=== PATIENT | female | born 1965 | race Caucasian/White ===

== ENCOUNTER 2017-04-08 07:54 | Day surgery (SDC) | payer MEDICARE, MEDICAID, SELFPAY ==
--- NOTE | 2017-04-08 | IMM_PTH ---
PATIENT: RAMSES BRADSHAW LOC: EN U#:[id number] AGE/SX: 51/F ROOM: RE04/08/[address]: Dr. Clarissa Jose MD : 1965 BED: DIS: 04/08/2017 SPEC #: [id number] RECD: 04/09/17 10:44 STATUS: MARYANN REQ #: [id number] LILLIE: 04/08/17 00:[address]: Clarissa Jose DEPT: IMMUNOHISTOCHEMISTRY RECD BY: Lizeth Benitez ENTERED: 04/09/17 10:47 SP TYPE: IMMUNO OTHR DR: Dr. Bobby Leon MD Tissues: B - Gastric fundus Procedures: Synapto (add) CEA (add) CHROMO (add) CK8 (add) Surgery Specimen Level IV NSE (add) CD56 (initial) PHYSICIAN & INSTITUTION [place] [id number] SPECIMEN INFORMATION: Tissue Source: B ? Fundic biopsy Clinical Info: Abdomen pain, gastric reflux Specimen Number: [id number] CPT code: 59076, 83665 x5 METHODOLOGY: Deparaffinized sections of prefer/formalin-fixed tissue or PAP/DQ stained slides are incubated with monoclonal/polyclonal antibodies/oligonucleotide probes. Localization is made via biotin free immunoperoxidase method. Appropriate controls are performed and reacted as expected. Results on target cell population are indicated in the following table: RESULTS: ANTIBODY / CLONE RESULT Block B CD56 (123C3.D5) positive NSE Neuron Specific Enolase positive, dim Chromo (LK2H10) positive Synapto (polyclonal) positive CEA (11-7/TF-3HB-1) negative CK8 ([id number]) positive These tests were developed and their performance characteristics determined by [facility]. They may not have been cleared or approved by the U.S. Food and Drug Administration. The FDA has determined that such clearance or approval is not necessary. INTERPRETATION: B. Fundic biopsy: Consistent with neuroendocrine tumor. Case has been reviewed in consultation with Dr. Wiley who concurs with the above diagnosis. IDC:YOUSIF AM:marty 04/10/17
--- NOTE | 2017-04-08 | GASB_PTH ---
PATIENT: RAMSES BRADSHAW LOC: [facility] U#:[id number] AGE/SX: 51/F ROOM: RE04/08/[address]: Dr. Clarissa Jose MD : 1965 BED: DIS: 04/08/2017 SPEC #: [id number] RECD: 04/08/17 12:38 STATUS: MARYANN TAMIKA #: [id number] LILLIE: 04/08/17 00:[address]: Clarissa Jose DEPT: SURGICAL PATHOLOGY RECD BY: Dev Delaney ENTERED: 04/08/17 12:39 SP TYPE: Gastric Bx OTHR DR: Dr. Bobby Leon MD Tissues: A - Gastric mucous membrane B - Gastric fundus C - Gastric mucous membrane Procedures: Special Stain Group II Surgery Specimen Level IV Alcian Blue/PAS (control) HEADER OPERATION: EGD with biopsy PRE-OP DIAGNOSIS: abdomen pain, gastric reflux TISSUE SUBMITTED: A ? Antrum biopsy, B ? Biopsy fundic abnormal fold, C ? Biopsy GE junction MICROSCOPIC DIAGNOSIS A. Gastric antrum, biopsy: Minimal chronic inflammation. B. Gastric fundus, biopsy: Neuroendocrine tumor. See Comment. C. Gastroesophageal junction, biopsy: Mild chronic inflammation. AM:marty 04/09/17 COMMENT B. A neroendocrine tumor measuring 1.5 x 1.0mm is present in the submucosa of the biopsy of the abnormal fundic fold. IHC studies ([id number]) support the above diagnosis. Clinical correlation is necessary. C. There is no evidence of intestinal metaplasia. Alcian blue/PAS stain with matched control supports the above diagnosis. Case has been reviewed in consultation with Dr. Wiley who concurs with the above diagnosis. IDC:SJ MICROSCOPIC DESCRIPTION Slides are reviewed. GROSS DESCRIPTION A - Received in fixative is one container labeled with the patient's name and designated antrum biopsy. The specimen consists of one irregular fragment of light aburto soft tissue that measures 0.3 x 0.2 x 0.1 cm. The specimen is totally submitted in one cassette. B - Received in fixative is one container labeled with the patient's name and designated fundic antral fold. The specimen consists of one irregular fragment of light aburto soft tissue that measures 0.5 x 0.2 x 0.1 cm. The specimen is totally submitted in one cassette. C - Received in fixative is one container labeled with the patient's name and designated GE junction. The specimen consists of one irregular fragment of light aburto soft tissue that measures 0.6 x 0.2 x 0.1 cm. The specimen is totally submitted in one cassette. / AM:marty 04/08/17 TC:0 CPT: 88609 x3, 66727
[2017-04-08 08:39] VITALS: BP 142/88; PULSE 57; RESP 16; O2SAT 100; BMI 31.6
[2017-04-08 09:08] VITALS: BP 117/88; BP 142/88; PULSE 59; RESP 18; TEMP 35.9; O2SAT 99
[2017-04-08 09:10] VITALS: BP 121/72; BP 142/88; PULSE 60; RESP 16; O2SAT 99
[2017-04-08 09:15] VITALS: BP 125/70; BP 142/88; PULSE 67; RESP 16; O2SAT 100
[2017-04-08 09:23] VITALS: BP 126/67; BP 142/88; PULSE 60; RESP 16; TEMP 36.4; O2SAT 100
[2017-04-08 09:47] VITALS: BP 142/88
--- NOTE | 2017-04-08 10:20 | OP.PCM_ITS ---
Report of Operation Date of Procedure: 04/08/17 Pre-Operative Diagnosis: GERD, left upper quadrant/epigastric pain Post-Operative Diagnosis: Same, abnormal gastric fold/ulcer Surgery/Procedure Performed:: EGD with cold forceps biopsy Type of Anesthesia:: MAC Anesthesiologist: Luis Manuel Sawyer Specimen's removed: 1. Antrum, 2. Abnormal gastric fold in the fundus/ proximal body, 3. GE junction Estimated Blood Loss (mL): Minimal Description of Procedure: Procedure: EGD with biopsy After obtaining informed consent, the endoscope was passed under direct visualization. Throughout the procedure, patient's blood pressure, pulse, oxygen saturations were monitored continuously by anesthesia. The endoscope was introduced through the mouth and advanced to the 2nd part of the duodenum. The upper GI endoscopy was accomplished without difficulty. Patient tolerated procedure well. Findings: Medium-sized ulcer/abnormal gastric folds were noted in the fundus/proximal body. Biopsy was taken, the tissue was friable. Mild erythematous mucosa at antrum and GE junction noted to be at 37 cm. No hiatal hernia Biopsies were taken with cold biopsy for histology. Estimated blood loss was minimal. The duodenum was normal. Impression: 1. Abnormal gastric fold/ulcer in the fundus/proximal body. Biopsied 2. Erythematous mucosa in the antrum and GE junction. Biopsied. 3. Normal examined duodenum Recommendations: Await biopsy Stop omeprazole 20 mg p.o. daily start Protonix 40 mg p.o. daily Start Carafate 1 g p.o. 4 times daily an hour before meals and at bedtime for a month.
== END 2017-04-08 09:48 | disposition home or self-care (01) ==
LOC: EN 07:54 → AC 07:57
PROVIDERS: Family Provider Family Medicine; PCP Family Medicine; Visit Provider Surgery
PROC: 0DJ08ZZ Inspection of Upper Intestinal Tract, Via Natural or Artificial Opening Endoscopic (ICD-10-PCS; CPT 43235; principal; 2017-04-08 08:55)
DX: K29.50 Unspecified chronic gastritis without bleeding (principal); K21.0 Gastro-esophageal reflux disease with esophagitis; D64.9 Anemia, unspecified; I10 Essential (primary) hypertension; E78.00 Pure hypercholesterolemia, unspecified; M54.5 Low back pain; G89.29 Other chronic pain; F32.9 Major depressive disorder, single episode, unspecified; F41.9 Anxiety disorder, unspecified; E66.9 Obesity, unspecified; Z72.0 Tobacco use; Z79.899 Other long term (current) drug therapy; Z87.891 Personal history of nicotine dependence; Z90.710 Acquired absence of both cervix and uterus
CPT/HCPCS: 43239; 88305; 88313; 88341; 88342; J7120

== ENCOUNTER → 2017-04-12 12:05 | Outpatient (CLI) | payer MEDICARE, MEDICAID, SELFPAY ==
[2017-04-12 14:16] LABS: Absolute Neutrophil Count 7.5 X10^3/uL (2.0-7.7); Basophil# 0.05 X10^3/uL; Basophil% 0.4 % (0-1); Eosinophil# 0.27 X10^3/uL; Eosinophils% 2.2 % (0-5); Hematocrit 45.7 % (37-47); Hemoglobin 15.4 g/dl (12.0-15.0); Lymphocyte % 28.8 % (19-41); Mean Corp Hgb Conc 33.7 g/gl (32-36); Mean Corpuscular Hgb 30.5 pg (27.0-32.0); Mean Corpuscular Volume 90.5 fL (81-99); Mean Platelet Vol. 10.7 fl (6.2-12.0); Monocyte# 0.83 X10^3/uL; Monocyte% 6.8 % (0-10); Neutrophil # 7.47 X10^3/uL (2.7-7.7); Neutrophil % 61.4 % (47-70); Platelet Count 256 K/mm3 (150-450); RBC Distribution Width CV 13.2 % (11.6-14.6); RBC Distribution Width SD 43.4 fl (35.1-43.9); Red Blood Count 5.05 M/mm3 (4.2-5.4); White Blood Count 12.2 K/mm3 (4.4-11.0)
[2017-04-12 14:21] LABS: AST(SGOT) 20 U/L (15-37); Alanine Aminotransfer ALT/SGPT 31 U/L (13-56); Albumin, Serum 3.9 g/dL (3.2-5.0); Alkaline Phosphatase 103 U/L (45-117); Anion Gap 9 (5-15); BUN 12 mg/dL (7-18); BUN/Creat Ratio 13.7 RATIO (10-20); Calcium,Total 9.7 mg/dL (8.5-10.1); Chloride 108 mmol/L (98-107); Creatinine, Serum 0.88 mg/dL (0.55-1.02); EST Glomerular Filtration Rate 72 mL/min (>60); Est Glom Filt Rate - Afr Amer 87 mL/min (>60); Glucose 95 mg/dL (74-106); Potassium 3.5 mmol/L (3.5-5.1); Protein, Total 7.9 g/dL (6.4-8.2); Sodium Level 143 mmol/L (136-145)
[2017-04-12 14:22] LABS: POSITIVE COUNT NO; POSITIVE DIFFERENTIAL NO; POSITIVE MORPHOLOGY NO
[2017-04-15 07:52] LABS: Gastrin, Serum 266 pg/mL (0-115)
== END ==
PROVIDERS: Family Provider Family Medicine; PCP Family Medicine; Visit Provider Surgery
DX: D3A.8 Other benign neuroendocrine tumors (principal)
CPT/HCPCS: 36415; 80053; 82941; 85025

== ENCOUNTER 2017-05-20 12:45 | Day surgery (SDC) | payer MEDICARE, MEDICAID, SELFPAY ==
[2017-05-20] VITALS (7 sets, daily range): BP systolic 103–123; BP diastolic 56–76; PULSE 57–75; RESP 14–16; TEMP 36.6–36.7; O2SAT 94–97; BMI 31.3
--- NOTE | 2017-05-20 | COLBX_PTH ---
PATIENT: RAMSES BRADSHAW LOC: EN U#:[id number] AGE/SX: 51/F ROOM: RE05/20/[address]: Dr. Clarissa Jose MD : 1965 BED: DIS: 05/20/2017 SPEC #: [id number] RECD: 05/20/17 15:55 STATUS: MARYANN TAMIKA #: [id number] LILLIE: 05/20/17 00:[address]: Clarissa Jose DEPT: SURGICAL PATHOLOGY RECD BY: Wild Gaines ENTERED: 05/21/17 12:15 SP TYPE: COLON BX OTHR DR: Dr. Bobby Leon MD Tissues: POLYP Procedures: Surgery Specimen Level IV HEADER OPERATION: Colonoscopy PRE-OP DIAGNOSIS: Screening TISSUE SUBMITTED: Distal transverse polyp biopsy MICROSCOPIC DIAGNOSIS Distal transverse colon polyp, biopsy: Hyperplastic polyp. SJ:marty 05/22/17 MICROSCOPIC DESCRIPTION Slides are reviewed. GROSS DESCRIPTION Received in fixative is one container labeled with the patient's name and designated distal transverse colon polyp. The specimen consists of two irregular fragments of light aburto soft tissue that in aggregate measure 0.3 x 0.3 x 0.1 cm. The specimen is totally submitted in one cassette. / AM:marty 05/21/17 TC:1 CPT: 01378
--- NOTE | 2017-05-20 15:15 | PCM.OPRPT ---
Report of Operation Date of Procedure: 05/20/17 Pre-Operative Diagnosis: Bright red blood per rectum, gastric neuroendocrine tumor Post-Operative Diagnosis: Small sessile distal transverse colon polyp Surgery/Procedure Performed:: Colonoscopy with biopsy Type of Anesthesia:: MAC Anesthesiologist: Lisanrdo Morales Specimen's removed: 1. Distal transverse colon polyp Estimated Blood Loss (mL): Minimal Description of Procedure: Procedure: Colonoscopy After reviewing the risks benefits, the patient was deemed in satisfactory condition to undergo procedure. After obtaining informed consent, the scope was passed under direct visualization. Throughout the procedure, the patient's blood pressure pulse and position saturations were monitored continuously anesthesia. The colonoscope was introduced through the anus and advanced to the cecum, identified by the IC valve and transillumination. The colonoscopy was performed without difficulty. The patient tolerated procedure well. Quality of bowel prep was good. Findings: The perianal and digital rectal exam were normal. A small sessile polyp in the distal transverse colon was removed with cold forceps biopsies. The colon (entire examined portion) appeared normal. Retroflexed view of the distal rectum and anal verge was normal and showed no anal or rectal abnormalities Impression: 1. Small sessile distal transverse colon polyp. Biopsied 2. The distal rectal and anal verge were normal on retroflexed view. Recommendations: Await biopsy Repeat colonoscopy in 3-5 years for screening purposes depending on biopsy - Complications none
== END 2017-05-20 15:49 | disposition home or self-care (01) ==
LOC: EN 12:46 → AC 12:48
PROVIDERS: Family Provider Family Medicine; PCP Family Medicine; Visit Provider Surgery
PROC: 0DJD8ZZ Inspection of Lower Intestinal Tract, Via Natural or Artificial Opening Endoscopic (ICD-10-PCS; CPT 45378; principal; 2017-05-20 13:45)
DX: K63.5 Polyp of colon (principal); D3A.8 Other benign neuroendocrine tumors; R63.4 Abnormal weight loss; L98.9 Disorder of the skin and subcutaneous tissue, unspecified; K21.9 Gastro-esophageal reflux disease without esophagitis; E78.4 Other hyperlipidemia; I10 Essential (primary) hypertension; D64.9 Anemia, unspecified; G47.30 Sleep apnea, unspecified; G25.81 Restless legs syndrome; R07.89 Other chest pain; M54.5 Low back pain; G89.29 Other chronic pain; E66.9 Obesity, unspecified; Z68.31 Body mass index [BMI] 31.0-31.9, adult; F41.9 Anxiety disorder, unspecified; Z79.899 Other long term (current) drug therapy; Z95.0 Presence of cardiac pacemaker; Z87.891 Personal history of nicotine dependence; Z90.710 Acquired absence of both cervix and uterus
CPT/HCPCS: 45380; 88305; J7120

== ENCOUNTER → 2017-05-22 17:56 | Outpatient (CLI) | payer MEDICARE, MEDICAID, SELFPAY ==
--- NOTE | 2017-05-22 | IMM_PTH ---
PATIENT: RAMSES BRADSHAW LOC: [facility] U#:[id number] AGE/SX: 59/F ROOM: RE05/22/[address]: Dr. Clarissa Jose MD : 1965 BED: DIS: SPEC #: [id number] RECD: 05/24/17 14:49 STATUS: MARYANN REQ #: [id number] LILLIE: 05/22/17 00:[address]: Clarissa Jose DEPT: IMMUNOHISTOCHEMISTRY RECD BY: Lizeth Benitez ENTERED: 05/24/17 14:51 SP TYPE: IMMUNO OTHR DR: Dr. Bobby Leon MD Tissues: Skin of breast, NOS Procedures: Synapto (add) CD31 (add) CD56 (add) CHROMO (add) Vimentin (add) Factor VIII (initial) NEUROFIL (add) NSE (add) S-100 (add) PHYSICIAN & INSTITUTION [place] [id number] SPECIMEN INFORMATION: Tissue Source: Right medial breast, skin lesion Clinical Info: History gastric neuroendocrine tumor, ? [place] cell Specimen Number: [id number] #3 CPT code: 60552, 42177 x8 METHODOLOGY: Deparaffinized sections of prefer/formalin-fixed tissue or PAP/DQ stained slides are incubated with monoclonal/polyclonal antibodies/oligonucleotide probes. Localization is made via biotin free immunoperoxidase method. Appropriate controls are performed and reacted as expected. Results on target cell population are indicated in the following table: RESULTS: ANTIBODY / CLONE RESULT Block #3 Factor VIII (R Ag) positive CD31 (JANE/70A) positive Vimentin (V9) negative S-100 (4C4.9) negative Neurofil (2F11) negative CD56 (123C3.D5) negative NSE Neuron Specific Enolase negative Chromo (LK2H10) negative Synapto (polyclonal) negative These tests were developed and their performance characteristics determined by [facility]. They may not have been cleared or approved by the U.S. Food and Drug Administration. The FDA has determined that such clearance or approval is not necessary. INTERPRETATION: Right medial breast, skin lesion: Consistent with capillary hemangioma. AM:marty 05/27/17
--- NOTE | 2017-05-22 13:00 | LES_PTH ---
PATIENT: RAMSES BRADSHAW LOC: [facility] U#:[id number] AGE/SX: 59/F ROOM: RE05/22/[address]: Dr. Clarissa Jose MD : 1965 BED: DIS: SPEC #: [id number] RECD: 05/22/17 17:25 STATUS: MARYANN LUNDBERG #: [id number] LILLIE: 05/22/17 13:[address]: Clarissa Jose DEPT: SURGICAL PATHOLOGY RECD BY: Gardenia Yap ENTERED: 05/23/17 10:52 SP TYPE: Lesion OTHR DR: Dr. Bobby Leon MD Tissues: Skin of breast, NOS Procedures: Surgery Specimen Level IV HEADER OPERATION: Excision of right chest/breast lesion PRE-OP DIAGNOSIS: History gastric neuroendocrine tumor, ? 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 AM:marty 05/24/17 COMMENT This case was discussed with Dr. Jose 05/24/17 at 11:15 a.m. and 05/27/17 at 11:50pm by Dr. Gibbons Immunohistochemistry ([id number]) supports the above diagnosis. Case has been reviewed in consultation with Dr. Wiley who concurs with the above diagnosis. IDC:SJ MICROSCOPIC DESCRIPTION Slides are reviewed. GROSS DESCRIPTION Received in fixative is one container labeled with the patient's name and designated right medial breast skin lesion. The specimen consists of a piece of aburto-white skin ellipse measuring 3.5 x 2 cm and up to 0.3 cm in thickness. The specimen is oriented by a suture as follows as per Dr. Jose: long ? lateral, short ? superior. The specimen is inked as follows: superior margin ? blue, inferior margin ? green, lateral tip ? black and medial tip ? yellow. The skin surface shows a round, raised lesion measuring 0.5 cm in diameter. The specimen is inked, serially sectioned and submitted entirely in four cassettes as follows: cassette 1 contains the medial and lateral tip, 2-4 ? rest of the specimen (cassette 3 contains the lesion. / YOUSIF:marty 05/23/17 TC:1 CPT: 40214
== END ==
PROVIDERS: Family Provider Family Medicine; PCP Family Medicine; Visit Provider Surgery
DX: Z87.19 Personal history of other diseases of the digestive system (principal)
CPT/HCPCS: 88305; 88341; 88342

== ENCOUNTER 2017-08-22 16:00 | Emergency (ER) | payer MEDICARE, MEDICAID, SELFPAY ==
[2017-08-22 16:02] VITALS: BP 127/53; PULSE 67; RESP 17; TEMP 36.8; O2SAT 95; BMI 28.8
--- NOTE | 2017-08-22 16:31 | RAD_ITS ---
STUDY: X-RAY - PELVIS AND RIGHT HIP REASON FOR EXAM: Female, 52 years old. Trauma TECHNIQUE: Radiological exam, hip, unilateral, with pelvis when performed; 2 or 3 views. COMPARISON: None. FINDINGS: There is a non-specific bowel gas pattern. Normal visualized soft tissue structures. Normal bilateral iliac wings, sacroiliac joints and visualized sacrum. Normal bilateral superior and inferior pubic rami. Normal pubic symphysis. Normal bilateral ischial tuberosities. Normal visualized femoral head. Normal acetabulum. Normal hip joint. RAD/Hip 2-3 Views with Pelvis IMPRESSION: Normal x-ray examination of the pelvis and hip. Electronically Signed: Mainor Trujillo MD at 18:17 EDT , Service support ,
--- NOTE | 2017-08-22 16:31 | CT_ITS ---
STUDY: CT ABDOMEN AND PELVIS WITH CONTRAST REASON FOR EXAM: Female, 52 years old. Trauma RADIATION DOSAGE (If Supplied By Facility): CTDIvol = ( 16.51 ) mGy, DLP = ( 1073.71 ) mGycm TECHNIQUE: Transaxial images were obtained from the dome of the diaphragm to the symphysis pubis without oral contrast. 100 ml of Isovue 300 contrast was administered. Sagittal and coronal images were reconstructed. Individualized dose optimization techniques were used for this CT. COMPARISON: July 04, 2010. Report only FINDINGS: There is minor atelectasis within the dependent portion of the lungs. The visualized portions of the heart are within normal limits. Nonspecific fatty infiltration of liver without mass or bile duct dilatation status post cholecystectomy.. Normal spleen. Normal pancreas. Normal bilateral adrenal glands. Normal right kidney. Normal left kidney. There are postsurgical changes of the stomach. Normal small intestine. Diverticular disease of the distal descending and sigmoid colon without evidence for acute diverticulitis. No evidence for acute appendicitis Minor atherosclerotic changes of the aorta without evidence for aneurysm Normal inferior vena cava. Normal retroperitoneum. Nonspecific diffuse distention of the bladder. Uterus not visualized consistent with hysterectomy Normal abdominal wall. Status post bilateral laminectomy at L4-5 and L5-S1 posterior fusion No acute fractures identified CT/Abdomen/Pelvis W IV Cont ONLY IMPRESSION: Postsurgical changes status post cholecystectomy and hysterectomy.. Diverticular disease of the colon without evidence for acute diverticulitis. No acute abnormalities Electronically Signed: Mainor Trujillo MD at 17:58 EDT , Service support ,
--- NOTE | 2017-08-22 16:31 | RAD_ITS ---
STUDY: X-RAY - UNILATERAL RIBS ( RIGHT ) WITH CHEST REASON FOR EXAM: Female, 52 years old. Trauma TECHNIQUE - RIBS: 4 view(s) of the ribs. TECHNIQUE - CHEST: PA COMPARISON: None. FINDINGS - RIBS: Normal visualized ribs without a demonstrated fracture. FINDINGS - CHEST: Diminished inspiratory effort is seen with minor basilar atelectasis.. There is no demonstrated pleural abnormality. Pacer noted on the left with electrodes in satisfactory position. Normal size heart. Normal mediastinum and archana. Normal visualized pulmonary arteries. Normal visualized aortic arch and descending thoracic aorta. Normal visualized thoracic spine. Normal visualized ribs, clavicles, and shoulders. There is no demonstrated abnormality of the visualized soft tissue structures of the upper abdomen. RAD/Ribs Uni Min 3V w/PA Chest IMPRESSION: RIBS: Normal x-ray examination of the ribs. CHEST: Decreased inspiratory effort. No acute disease. Electronically Signed: Mainor Trujillo MD at 18:19 EDT , Service support ,
--- NOTE | 2017-08-22 16:33 | ED.VISSUMM ---
- ER Visit Summary Date of Service: 08/22/17 Chief Complaint: Fall History of Present Illness: The patient is a 52 F presenting after fall. Patient states on August 13 she was walking a dog and had a mechanical fall falling onto her right side. She was seen by her primary care physician following that. She presents today due to persistent pain. She did not hit her head or lose consciousness. She is not on anticoagulants. She has pain in the right hip, right abdomen, and right lower chest. She is able to ambulate. Physical Examination: Vitals are stable. Patient is afebrile. Alert no acute distress. HEENT exam is unremarkable. Neck is supple. Lungs are clear and equal bilaterally. Right lower chest wall tenderness, no crepitus Heart is regular rate and rhythm. Abdomen is soft right upper quadrant tenderness, no rebound or guarding Extremities lateral right hip tenderness with painful range of motion. Skin is warm and dry. No focal neurologic deficit. Remainder of exam is unremarkable. Emergency Department Course and Treatment: Patient given morphine, Zofran. X-ray of the right hip and right rib series shows no acute process. CT abdomen pelvis with IV only contrast shows no acute process. While in the emergency department patient began to complain of chest pain. EKG is sinus bradycardia rate of 58. This started after she had morphine. She was given Dilaudid. She was given aspirin. CBC chemistries unremarkable. Troponin is negative. Due to the onset of her pain, recommended repeat troponin. I had a long discussion with the patient regarding the importance of this. She stated she understood and was willing to stay for repeat blood test. She later mentioned that it is not atypical for her to have chest pain. She eloped from the emergency department prior to completion of her evaluation. Disposition: Elopement Impression: Right hip pain, chest wall pain status post mechanical fall This note was generated with [employer] dictation software. It may contain incorrect words, spelling, and punctuation that were not noted in review of the chart prior to signing ED Disposition - Plan for ED Patient: Disposition: Against Medical Advice Chief Complaint: Fall Referrals: Michael Leon MD [Primary Care Provider] -
[2017-08-22] MEDS: Morphine 4 MG/ML Syringe IV (16:52)
[2017-08-22] MEDS: Ondansetron 4 MG/2 ML Vial IV (16:52)
--- NOTE | 2017-08-22 17:49 | EKG12_ITS ---
Test Reason : FALL Blood Pressure : / mmHG Vent. Rate : 058 BPM Atrial Rate : 058 BPM P-R Int : 172 ms QRS Dur : 088 ms QT Int : 440 ms P-R-T Axes : 021 034 038 degrees QTc Int : 431 ms Sinus bradycardia Otherwise normal ECG Confirmed by AIDEN GAUTAM, LEELEE ([id number]), offline editor KIM KIM ([id number]) on 08/28/2017 3:14:14 PM Referred By: KRISS Confirmed By:LEELEE WOLFE MD
[2017-08-22 18:00] VITALS: BP 140/79; PULSE 58; RESP 16; O2SAT 96
[2017-08-22] MEDS: HYDROmorphone 1 MG/ML Syringe 0.5 MG IV (18:38)
[2017-08-22 19:52] LABS: Absolute Lymphocyte Count 3.02 X10^3/ul (0.83-4.51); Absolute Neutrophil Count 7.4 X10^3/uL (2.0-7.7); Basophil# 0.02 X10^3/uL; Basophil% 0.2 % (0-1); Eosinophil# 0.22 X10^3/uL; Hematocrit 46.2 % (37-47); Hemoglobin 15.5 g/dl (12.0-15.0); Lymphocyte # 3.02 X10^3/ul (4.0); Lymphocyte % 26.9 % (19-41); Mean Corp Hgb Conc 33.5 g/gl (32-36); Mean Corpuscular Hgb 30.1 pg (27.0-32.0); Mean Corpuscular Volume 89.7 fL (81-99); Mean Platelet Vol. 10.1 fl (6.2-12.0); Monocyte# 0.58 X10^3/uL; Monocyte% 5.2 % (0-10); Neutrophil # 7.37 X10^3/uL (2.7-7.7); Neutrophil % 65.6 % (47-70); POSITIVE COUNT NO; POSITIVE DIFFERENTIAL NO; POSITIVE MORPHOLOGY NO; Platelet Count 260 K/mm3 (150-450); RBC Distribution Width CV 14.3 % (11.6-14.6); RBC Distribution Width SD 46.7 fl (35.1-43.9); Red Blood Count 5.15 M/mm3 (4.2-5.4); White Blood Count 11.2 K/mm3 (4.4-11.0)
[2017-08-22 20:08] LABS: Anion Gap 8 (5-15); BUN 17 mg/dL (7-18); BUN/Creat Ratio 19.8 RATIO (10-20); Calcium,Total 9.3 mg/dL (8.5-10.1); Chloride 110 mmol/L (98-107); Creatinine, Serum 0.86 mg/dL (0.55-1.02); EST Glomerular Filtration Rate 74 mL/min (>60); Est Glom Filt Rate - Afr Amer 89 mL/min (>60); Estimated Creatinine Clearance 60.52 ml/min; Glucose 72 mg/dL (74-106); Potassium 3.7 mmol/L (3.5-5.1); Sodium Level 146 mmol/L (136-145)
[2017-08-22] MEDS: Aspirin 81 MG TAB.CHEW 324 MG PO (20:25)
[2017-08-22 20:45] VITALS: BP 111/70; PULSE 64; RESP 97
[2017-08-22 22:27] VITALS: BP 107/52; PULSE 55; RESP 16; O2SAT 97
--- NOTE | 2017-08-22 22:42 | ED.RN ---
PT REMOVED HER OWN IV. STATED SHE WAS TIRED OF WAITING. WOULD NOT ALLOW SECOND TROP TO BE DRAWN. WALKED OUT OF ED. EMD AWARE.
== END 2017-08-22 22:44 | disposition left against medical advice (07) ==
PROVIDERS: Emergency Provider Emergency Medicine; Family Provider Family Medicine; PCP Family Medicine
DX: M25.551 Pain in right hip (principal); R07.89 Other chest pain; W19.XXXA Unspecified fall, initial encounter; Y93.K1 Activity, walking an animal; Y92.9 Unspecified place or not applicable; Y99.9 Unspecified external cause status; I10 Essential (primary) hypertension; R00.1 Bradycardia, unspecified; Z79.899 Other long term (current) drug therapy
CPT/HCPCS: 71101; 73502; 74177; 80048; 84484; 85025; 93005; 96374; 96375; 99283; Q9967; A4216; J2405

== ENCOUNTER 2017-08-26 23:48 | Emergency (ER) | payer MEDICARE, MEDICAID, SELFPAY ==
[2017-08-26 23:50] VITALS: BP 120/73; PULSE 60; RESP 16; TEMP 36.6; O2SAT 97; BMI 31.9
[2017-08-27] MEDS: 0.9% Normal Saline 1,000 ML 1000 ML IV (01:46)
[2017-08-27] MEDS: Morphine 4 MG/ML Syringe IV (01:46)
[2017-08-27 01:58] LABS: Absolute Lymphocyte Count 3.65 X10^3/ul (0.83-4.51); Absolute Neutrophil Count 6.6 X10^3/uL (2.0-7.7); Basophil# 0.02 X10^3/uL; Basophil% 0.2 % (0-1); Eosinophil# 0.36 X10^3/uL; Eosinophils% 3.2 % (0-5); Hematocrit 44.9 % (37-47); Hemoglobin 15.4 g/dl (12.0-15.0); Lymphocyte # 3.65 X10^3/ul (4.0); Lymphocyte % 32.1 % (19-41); Mean Corp Hgb Conc 34.3 g/gl (32-36); Mean Corpuscular Hgb 30.2 pg (27.0-32.0); Mean Platelet Vol. 9.1 fl (6.2-12.0); Monocyte# 0.67 X10^3/uL; Monocyte% 5.9 % (0-10); Neutrophil # 6.64 X10^3/uL (2.7-7.7); Neutrophil % 58.3 % (47-70); POSITIVE COUNT NO; POSITIVE DIFFERENTIAL NO; POSITIVE MORPHOLOGY NO; Platelet Count 251 K/mm3 (150-450); RBC Distribution Width CV 14.1 % (11.6-14.6); RBC Distribution Width SD 45.3 fl (35.1-43.9); White Blood Count 11.4 K/mm3 (4.4-11.0)
[2017-08-27 02:04] LABS: Prothrombin Time (Protime)PT. 12.8 SECONDS (11.7-14.9)
[2017-08-27 02:05] LABS: Partial Thromboplast Time 32.9 Seconds (24.1-36.2)
[2017-08-27 02:12] LABS: ALB/GLOB Ratio 0.9 RATIO (0.9-2.4); AST(SGOT) 16 U/L (15-37); Alanine Aminotransfer ALT/SGPT 40 U/L (13-56); Albumin, Serum 3.4 g/dL (3.2-5.0); Alkaline Phosphatase 112 U/L (45-117); Anion Gap 5 (5-15); BUN 14 mg/dL (7-18); BUN/Creat Ratio 17.2 RATIO (10-20); Chloride 114 mmol/L (98-107); Creatinine, Serum 0.81 mg/dL (0.55-1.02); EST Glomerular Filtration Rate 79 mL/min (>60); Est Glom Filt Rate - Afr Amer 95 mL/min (>60); Estimated Creatinine Clearance 64.26 ml/min; Globulin 3.9 g/dL (2.2-4.2); Glucose 89 mg/dL (74-106); Potassium 3.8 mmol/L (3.5-5.1); Protein, Total 7.3 g/dL (6.4-8.2); Sodium Level 145 mmol/L (136-145)
[2017-08-27] MEDS: Ondansetron 4 MG/2 ML Vial IV (02:23)
[2017-08-27 02:25] LABS: Acetaminophen (Tylenol) Level 4.9 ug/mL (10.0-30.0)
[2017-08-27 03:06] VITALS: PULSE 78; RESP 20; O2SAT 97
[2017-08-27 03:34] LABS: Lipase 136 U/L (73-393)
--- NOTE | 2017-08-27 03:43 | ED.DCSUM_ITS ---
- ER Visit Summary Date of Service: 08/27/17 Chief Complaint: Pain History of Present Illness: The patient is a 52 F with right hip and right rib pain. The patient was here several days ago and had negative x-rays after a fall. She was pulled over by a dog. She has been taking Tylenol. She took 5 g 3 days ago and she is taking up to 2 500 mg tablets every 2 hours throughout today. The patient thinks that that Tylenol is making her stomach hurt. She denies any other symptoms. Physical Examination: Afebrile and vital signs unremarkable. The patient is alert and oriented. Sitting comfortably. Heart regular rate and rhythm. Lungs clear. Abdomen soft, nontender, nondistended, normal bowel sounds, no masses. Skin is normal in color with no pallor or jaundice. Back is nontender. Test Results: CBC unremarkable. CMP unremarkable. Coags normal. Lipase normal. Tylenol 4.9, low. Emergency Department Course and Treatment: There is no indication to repeat imaging from the patient's injury. The Tylenol may be upsetting her stomach, but it does not appear that she has any signs of liver damage or toxicity. Her Tylenol level is low. Her abdominal exam is unremarkable and her laboratory studies are unremarkable. I educated the patient about proper Tylenol dosage. She may also use topical remedies for pain. She should follow-up with her primary care doctor. She will be discharged. Patient was upset and discharge that she did not get something for pain. I advised her that she has had narcotic prescriptions for this. Any further controlled substances should be from her primary care doctor or pain management. There is no fracture or other objective cause of her pain. We discussed topical remedies like lidocaine, BenGay, etc. She may also take Tylenol, but was advised to take the appropriate dose. Patient was reassured that her imaging including abdominal CT was unremarkable. She will follow-up with her doctor. Treatment Plan: As above Disposition: Discharged Impression: 1. Right hip pain 2. Back pain 3. Abdominal pain This note was generated with [employer] software. It may contain incorrect words, spelling, and punctuation that were not noted in review of the chart prior to signing ED Disposition - Plan for ED Patient: Disposition: Home or Assisted Living Chief Complaint: Lower Extremity Injury Instructions: ED Abdominal Pain Unkn Cause Prescriptions: Famotidine [Pepcid] 20 mg PO BID #60 tab Referrals: Michael Leon MD [Primary Care Provider] -
[2017-08-27 03:49] VITALS: BP 121/72; PULSE 74; RESP 16; O2SAT 98
== END 2017-08-27 03:51 | disposition home or self-care (01) ==
LOC: ED 08-27 01:25
PROVIDERS: Emergency Provider Emergency Medicine; Family Provider Family Medicine; PCP Family Medicine
DX: M25.551 Pain in right hip (principal); R07.81 Pleurodynia; M54.9 Dorsalgia, unspecified; R10.9 Unspecified abdominal pain; Z79.899 Other long term (current) drug therapy
CPT/HCPCS: 80053; 80329; 83690; 85025; 85610; 85730; 96361; 96374; 96375; 99283; J7030; A4216; G0480; J2405

== ENCOUNTER 2017-10-04 13:47 | Emergency (ER) | payer MEDICARE, MEDICAID, SELFPAY ==
[2017-10-04 13:49] VITALS: BP 116/75; PULSE 72; RESP 18; TEMP 37.1; O2SAT 96; BMI 30.5
[2017-10-04 14:26] VITALS: BP 119/74; BP 122/75; BP 122/84; PULSE 67; PULSE 68; PULSE 74
--- NOTE | 2017-10-04 14:26 | CT_ITS ---
STUDY: CT BRAIN WITHOUT CONTRAST REASON FOR EXAM: Female, 52 years old. Syncope with a fall RADIATION DOSAGE (If Supplied By Facility): CTDIvol = ( 60.81 ) mGy, DLP = ( 998.67 ) mGycm TECHNIQUE: Transaxial CT imaging of the brain was performed without administration of intravenous contrast material. Individualized dose optimization techniques were used for this CT. COMPARISON: None. FINDINGS: Normal soft tissue structures. Normal calvarium. Normal size ventricles and extra-axial spaces for the patient's age. Normal white matter tracts of the cerebral hemispheres. Normal basal ganglia and thalami. Normal brainstem. Normal cerebellum. There is no intracranial hemorrhage. There are no findings of an acute ischemic infarction. Normal visualized paranasal sinuses. CT/Brain/Head without Contrast IMPRESSION: Normal unenhanced CT scan of the brain. Electronically Signed: Murphy Dobbs MD at 15:19 EDT , Service support ,
--- NOTE | 2017-10-04 14:26 | EKG12_ITS ---
Test Reason : SYNCOPE Blood Pressure : / mmHG Vent. Rate : 072 BPM Atrial Rate : 072 BPM P-R Int : 132 ms QRS Dur : 076 ms QT Int : 406 ms P-R-T Axes : 012 069 050 degrees QTc Int : 444 ms Normal sinus rhythm Normal ECG Confirmed by AIDEN GAUTAM, LEELEE ([id number]), purchase request editor KIM KIM ([id number]) on 10/08/2017 2:14:39 PM Referred By: IRENA Confirmed By:LEELEE WOLFE MD
--- NOTE | 2017-10-04 14:29 | CT_ITS ---
STUDY: CT CERVICAL SPINE WITHOUT CONTRAST REASON FOR EXAM: Female, 52 years old. RADIATION DOSAGE (If Supplied By Facility): CTDIvol = ( 27.23 ) mGy, DLP = ( 506.99 ) mGycm TECHNIQUE: High resolution transaxial imaging was performed without contrast material. Sagittal and coronal images were reconstructed. Individualized dose optimization techniques were used for this CT. COMPARISON: None FINDINGS: Normal craniovertebral junction. Normal anterior atlantoaxial articulation. Normal odontoid process. Normal cervical lordosis. Normal vertebral bodies and posterior osseous elements. C2-3: Normal endplates. Normal disc height and morphology. Normal central canal and intervertebral neuroforamina. C3-4: Normal endplates. Normal disc height and morphology. Normal central canal and intervertebral neuroforamina. C4-5: Normal endplates. Normal disc height and morphology. Normal central canal and intervertebral neuroforamina. C5-6: Normal endplates. Normal disc height and morphology. Normal central canal and intervertebral neuroforamina. C6-7: Normal endplates. Normal disc height and morphology. Normal central canal and intervertebral neuroforamina. C7-T1: Normal endplates. Normal disc height and morphology. Normal central canal and intervertebral neuroforamina. There are scattered subcentimeter jugular chain lymph nodes. CT/Spine Cervical without Contras IMPRESSION: Normal unenhanced CT examination of the cervical spine. Scattered subcentimeter jugular chain lymph nodes. Electronically Signed: Murphy Dobbs MD at 15:20 EDT , Service support ,
--- NOTE | 2017-10-04 14:29 | CT_ITS ---
STUDY: CT LUMBAR SPINE WITHOUT CONTRAST REASON FOR EXAM: Female, 52 years old. Syncope, back pain RADIATION DOSAGE (If Supplied By Facility): CTDIvol = ( 30.00 ) mGy, DLP = ( 794.65 ) mGycm TECHNIQUE: The patient was scanned in a multi detector CT scanner. High resolution transaxial imaging was performed. Images were obtained from mid T12 to the lower coccyx. Sagittal and coronal images were reconstructed. Individualized dose optimization techniques were used for this CT. COMPARISON: 12/01/2016 FINDINGS: Normal lumbar lordosis. There is no substantial scoliosis. Normal alignment of the lumbar vertebral bodies. There is mild osseous demineralization. There is postsurgical fusion with laminectomy defect at L4-5. T11-12: Normal endplates. Normal disc height and morphology. Normal bilateral facet joints. Normal central canal and bilateral lateral recesses. Normal bilateral intervertebral neural foramina. T12-L1: Normal endplates. Normal disc height and morphology. Normal bilateral facet joints. Normal central canal and bilateral lateral recesses. Normal bilateral intervertebral neural foramina. L1-2: Normal endplates. Normal disc height and morphology. Normal bilateral facet joints. Normal central canal and bilateral lateral recesses. Normal bilateral intervertebral neural foramina. L2-3: Normal endplates. Normal disc height and morphology. Normal bilateral facet joints. Normal central canal and bilateral lateral recesses. Normal bilateral intervertebral neural foramina. L3-4: Normal endplates. Normal disc height and mild broad-based bulging. Arthrosis of the bilateral facet joints. Minimal narrowing of the central canal and bilateral lateral recesses. Normal bilateral intervertebral neural foramina. L4-5: 1 mm anterolisthesis. Normal endplates. Normal disc height and morphology. Bilateral pedicle screws with fusion. Wide laminectomy defect. Normal central canal and bilateral lateral recesses. Normal bilateral intervertebral neural foramina. L5-S1: Minimal spondylosis of the endplates. Normal disc height and morphology. Bilateral pedicle screws with fusion. Wide laminectomy defect. Normal central canal and bilateral lateral recesses. Normal bilateral intervertebral neural foramina. Peripheral calcifications noted in the abdominal aorta. CT/Spine Lumbar without Contrast IMPRESSION: Multilevel degenerative changes, as described above. No acute findings Stable postsurgical changes at L4 and L5 No significant interval change Electronically Signed: Murphy Dobbs MD at 15:22 EDT , Service support ,
[2017-10-04] MEDS: 0.9% Normal Saline 1,000 ML 1000 ML IV (14:47)
[2017-10-04] MEDS: Ondansetron 4 MG/2 ML Vial IV (14:47)
[2017-10-04] MEDS: Morphine 4 MG/ML Syringe IV (14:47)
[2017-10-04 14:48] LABS: Absolute Lymphocyte Count 3.81 X10^3/ul (0.83-4.51); Absolute Neutrophil Count 7.1 X10^3/uL (2.0-7.7); Basophil# 0.03 X10^3/uL; Basophil% 0.3 % (0-1); Eosinophil# 0.35 X10^3/uL; Eosinophils% 2.9 % (0-5); Hematocrit 43.8 % (37-47); Hemoglobin 14.8 g/dl (12.0-15.0); Lymphocyte # 3.81 X10^3/ul (4.0); Lymphocyte % 31.9 % (19-41); Mean Corp Hgb Conc 33.8 g/gl (32-36); Mean Corpuscular Hgb 30.3 pg (27.0-32.0); Mean Corpuscular Volume 89.8 fL (81-99); Mean Platelet Vol. 9.1 fl (6.2-12.0); Monocyte# 0.66 X10^3/uL; Monocyte% 5.5 % (0-10); Neutrophil % 59.3 % (47-70); POSITIVE COUNT NO; POSITIVE DIFFERENTIAL NO; POSITIVE MORPHOLOGY NO; Platelet Count 231 K/mm3 (150-450); RBC Distribution Width CV 13.7 % (11.6-14.6); RBC Distribution Width SD 44.7 fl (35.1-43.9); Red Blood Count 4.88 M/mm3 (4.2-5.4)
--- NOTE | 2017-10-04 15:27 | ED.DCSUM_ITS ---
- ER Visit Summary Date of Service: 10/04/17 Chief Complaint: [Syncope] History of Present Illness: The patient is a 52 F [presents the emergency department with an of episode of syncope. She was at a friend's house she walked in the house got very hot and dizzy and passed out she hit the back of her head she passed out after hitting her head. Her friend said she was unconscious for 7-8 minutes and was blue around the lips. She does not make eye contact when telling me this and is very vague about the story. The patient is complaining of low back pain neck pain and head pain. She does have a pacemaker this was last evaluated 6 months ago. She states she passed out intermittently and has a monitor on by her insurance card company to let somebody know when she falls. It did not go off. She is been otherwise feeling well prior to today no chest pain no shortness of breath no infectious symptoms] Physical Examination: [] WN WD NAD PERRL EOMI MMM She has tenderness diffusely around the neck and paraspinal neck muscles she is in a c-collar NECK supple and, no masses RRR no murmur rub or gallop, no peripheral edema, symmetric radial pulses CTAB no respiratory distress chest nontender ABDOMEN is soft and nontender, normal bowel sounds, no distension, no rebound or guarding Back has tenderness in the entire lumbar spine there is a well-healed surgical scar no step-offs no bruising or ecchymosis SKIN is warm and dry no rashes Alert and Oriented x3, CN II-XII in tact, no motor or sensory deficits, gait normal No lymphadenopathy Test Results: [] Emergency Department Course and Treatment: [Patient was given something for pain EKG was obtained and is sinus at a rate of 72 with no acute ischemic changes. Screening labs were obtained as well as urinalysis and CT of the head neck and lumbar spine were obtained any blood light work shows a mild leukocytosis at 12. Urinalysis is unremarkable. She did have mild elevation of her alk phos and AST. This is new. Patient had no right upper quadrant or epigastric tenderness no nausea vomiting no symptoms of biliary obstruction. I did tell her about this and asked her to follow with her primary care physician regarding this. She was feeling improved c-collar was cleared. Patient did have some soreness of her chest repeat EKG was obtained and was unchanged. On evaluation she was tender on her lower sternum. I think this is likely secondary to chest wall contusion from her fall. There is no deformity there is no crepitus there is no bruising. Patient was given careful precautions for which to return and encouraged to follow-up closely with her primary care doctor. She is invited to come back to the emergency department for any concerns. She will ice and rest over the weekend.] Treatment Plan: [] Disposition: [Discharge] Impression: [1. Syncope 2. Closed head injury 3. Back strain 4. Chest wall contusion] This note was generated with [employer] dictation software. It may contain incorrect words, spelling, and punctuation that were not noted in review of the chart prior to signing ED Disposition - Plan for ED Patient: Chief Complaint: Syncope Referrals: Michael Leon MD [Primary Care Provider] -
[2017-10-04 15:31] VITALS: BP 111/69; PULSE 67; RESP 14; O2SAT 97
[2017-10-04 15:31] LABS: ALB/GLOB Ratio 0.9 RATIO (0.9-2.4); AST(SGOT) 16 U/L (15-37); Alanine Aminotransfer ALT/SGPT 76 U/L (13-56); Albumin, Serum 3.4 g/dL (3.2-5.0); Alkaline Phosphatase 186 U/L (45-117); Anion Gap 7 (5-15); BUN 19 mg/dL (7-18); BUN/Creat Ratio 26.8 RATIO (10-20); Calcium,Total 9.3 mg/dL (8.5-10.1); Chloride 110 mmol/L (98-107); Creatinine, Serum 0.71 mg/dL (0.55-1.02); EST Glomerular Filtration Rate 92 mL/min (>60); Est Glom Filt Rate - Afr Amer 111 mL/min (>60); Estimated Creatinine Clearance 76.67 ml/min; Globulin 3.9 g/dL (2.2-4.2); Glucose 92 mg/dL (74-106); Protein, Total 7.3 g/dL (6.4-8.2); Sodium Level 144 mmol/L (136-145)
[2017-10-04 16:02] LABS: Bacteria 0 SEEN /hpf (None Seen); Mucous, Urine 0 SEEN /hpf (<or=2+); Red Blood Cells-Urine 0 SEEN /hpf (0-5); Squamous Epithelial Cells - UA 0 SEEN /hpf (5-10)
[2017-10-04 16:08] LABS: Color, Urine Yellow (Yellow); Glucose, Dipstick Normal (Normal); Ketone-Dipstick Negative (Negative); Leukocyte Esterase-Dipstick Negative /ul (Negative); Nitrite-Dipstick Negative (Negative); Occult Blood-Urine Negative /ul (Negative); Protein-Dipstick Negative (Negative); Specific Gravity, Urine 1.005 (1.002-1.030); Urine Bilirubin Dipstick Negative (Negative); Urine Clarity Clear (Clear); Urine Urobilinogen Normal (Normal); Urine pH 6.5 (5.0 - 8.0)
[2017-10-04 16:24] LABS: White Blood Cells 0-5 SEEN /hpf (0-5)
[2017-10-04 16:39] VITALS: BP 126/70
--- NOTE | 2017-10-04 16:39 | ED.DEP ---
ED Disposition - Plan for ED Patient: Chief Complaint: Syncope Instructions: ED Fainting Unkn Cause, ED Head Injury Closed, ED Sprain Strain Lumbar Referrals: Michael Leon MD [Primary Care Provider] - 3-5 Days
--- NOTE | 2017-10-04 16:39 | ED.RN ---
notified of c/o chest pain. repeat EKG.
[2017-10-04 16:47] VITALS: PULSE 69; O2SAT 100
--- NOTE | 2017-10-04 17:05 | EKG12_ITS ---
Test Reason : REPEAT CP Blood Pressure : / mmHG Vent. Rate : 065 BPM Atrial Rate : 065 BPM P-R Int : 184 ms QRS Dur : 088 ms QT Int : 416 ms P-R-T Axes : 039 042 047 degrees QTc Int : 432 ms Normal sinus rhythm Normal ECG Confirmed by AIDEN GAUTAM, LEELEE ([id number]), medical transcription editor KIM KIM ([id number]) on 10/08/2017 2:15:05 PM Referred By: IREAN Confirmed By:LEELEE WOLFE MD
[2017-10-04 17:42] LABS: Amphetamine Urine VISTA NEGATIVE (<1000 ng/mL); Barbiturate Urine VISTA NEGATIVE (< 200 ng/mL); Benzodiazepine Urine VISTA NEGATIVE (< 200 ng/mL); Cocaine Urine VISTA NEGATIVE (< 300 ng/mL); Ecstacy Urine VISTA NEGATIVE (< 500 ng/mL); Methadone Urine VISTA NEGATIVE (< 300 ng/mL); PCP Urine VISTA NEGATIVE (< 25 ng/mL); THC Urine VISTA NEGATIVE (< 50 ng/mL); Vista UDS pH Range 6
== END 2017-10-04 16:50 | disposition home or self-care (01) ==
PROVIDERS: Emergency Provider Emergency Medicine; Family Provider Family Medicine; PCP Family Medicine
DX: R55 Syncope and collapse (principal); S09.90XA Unspecified injury of head, initial encounter; S39.012A Strain of muscle, fascia and tendon of lower back, initial encounter; S20.219A Contusion of unspecified front wall of thorax, initial encounter; W18.00XA Striking against unspecified object with subsequent fall, initial encounter; Y93.9 Activity, unspecified; Y92.009 Unspecified place in unspecified non-institutional (private) residence as the place of occurrence of the external cause; Y99.9 Unspecified external cause status; Z79.899 Other long term (current) drug therapy; Z95.0 Presence of cardiac pacemaker
CPT/HCPCS: 70450; 72125; 72131; 80053; 80307; 81001; 84484; 85025; 93005; 96361; 96374; 96375; 99285; J7030; A4216; J2405

== ENCOUNTER 2017-10-08 19:37 | Emergency (ER) | payer MEDICARE, MEDICAID, SELFPAY ==
[2017-10-08 19:38] VITALS: BP 155/91; PULSE 76; RESP 12; TEMP 37.3; O2SAT 95; BMI 28.5
--- NOTE | 2017-10-08 20:32 | EKG12_ITS ---
Test Reason : SYNCOPE Blood Pressure : / mmHG Vent. Rate : 075 BPM Atrial Rate : 075 BPM P-R Int : 176 ms QRS Dur : 088 ms QT Int : 396 ms P-R-T Axes : 040 057 053 degrees QTc Int : 442 ms Normal sinus rhythm Normal ECG Confirmed by AIDEN GAUTAM, LEELEE ([id number]), city editor KIM KIM ([id number]) on 10/10/2017 11:51:34 AM Referred By: MUKUND Confirmed By:LEELEE WOLFE MD
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
[2017-10-08 20:51] LABS: Absolute Lymphocyte Count 3.43 X10^3/ul (0.83-4.51); Absolute Neutrophil Count 7.5 X10^3/uL (2.0-7.7); Basophil# 0.01 X10^3/uL; Basophil% 0.1 % (0-1); Eosinophil# 0.24 X10^3/uL; Hematocrit 45.6 % (37-47); Hemoglobin 15.5 g/dl (12.0-15.0); Lymphocyte # 3.43 X10^3/ul (4.0); Lymphocyte % 29.1 % (19-41); Mean Corpuscular Volume 88.4 fL (81-99); Monocyte# 0.62 X10^3/uL; Monocyte% 5.3 % (0-10); Neutrophil # 7.45 X10^3/uL (2.7-7.7); Neutrophil % 63.2 % (47-70); RBC Distribution Width CV 13.3 % (11.6-14.6); RBC Distribution Width SD 42.8 fl (35.1-43.9); Red Blood Count 5.16 M/mm3 (4.2-5.4); White Blood Count 11.8 K/mm3 (4.4-11.0)
[2017-10-08 20:59] LABS: Differential Indicated SCAN CRITERIA MET; POSITIVE COUNT YES; POSITIVE DIFFERENTIAL NO; POSITIVE MORPHOLOGY NO
[2017-10-08 21:03] LABS: Anion Gap 5 (5-15); BUN 12 mg/dL (7-18); BUN/Creat Ratio 16.1 RATIO (10-20); Calcium,Total 9.7 mg/dL (8.5-10.1); Chloride 110 mmol/L (98-107); Creatinine, Serum 0.74 mg/dL (0.55-1.02); EST Glomerular Filtration Rate 87 mL/min (>60); Est Glom Filt Rate - Afr Amer 105 mL/min (>60); Estimated Creatinine Clearance 70.34 ml/min; Glucose 115 mg/dL (74-106); Potassium 4.2 mmol/L (3.5-5.1); Sodium Level 142 mmol/L (136-145)
[2017-10-08 21:29] LABS: Platelet Estimate ADEQUATE (ADEQ); Red Cell Morphology NORM C+C NORMAL (NORM C&C)
--- NOTE | 2017-10-09 01:30 | ED.VISSUMM ---
- ER Visit Summary Date of Service: 10/09/17 Chief Complaint: Syncope History of Present Illness: The patient is a [address] Adams and Dr. José. She reports that at 1:00 this afternoon she was walking to her neighbor's house and been standing for approximately 2 minutes. She began feeling lightheaded and nauseated and had a syncopal episode. She denies any diaphoresis, chest pain, palpitations, abdominal pain. With this. Patient reports that she has a history of sick sinus syndrome and a pacemaker. She had multiple syncopal episodes in the past but had not had this for a long time until 4 days ago. She reports that a syncopal episode then. She has had a headache ever since then. She did hit her head today. She denies any other injuries. No neck or back pain. Physical Examination: Vitals: Stable. Afebrile. Neck: No vertebral tenderness. Full ROM without difficulty. Cleared by NEXUS criteria. Back: No vertebral tenderness. General: A&O x 3. NAD. Cardiovascular exam: Regular rate and rhythm, no murmur, rub or gallop. Respiratory exam: Chest nontender. No crepitus. Clear to auscultation bilaterally. No wheezes or stridor. Abdominal exam: Soft, nontender, nondistended, normal bowel sounds. No pain in RUQ or LUQ specifically. No peritoneal signs. Extremity: Atraumatic. No pain with range of motion. Test Results: EKG is sinus at 75 and is unchanged from 4 days ago. Troponin is negative. Chem-7 more for chloride 110 and glucose 115. CBC is more for white count 11.8 and hemoglobin of 15.5. Emergency Department Course and Treatment: The patient left prior to getting a CT of her brain or interrogation of her pacemaker. I did review the CTs that she had October 04. CT of the brain was normal at that time. CT of the cervical spine was normal at that time. CT of the lumbar spine showed degenerative changes. Patient was very upset that she would not receive pain medications in the emergency department. She has had a care plan in the past. I offered Tylenol. She is allergic to NSAIDs. I do not think that using opiate medications is indicated or in her best interest. Treatment Plan: Patient left prior to completion of treatment. Disposition: Left prior to completion of treatment. Impression: 1. Syncope. 2. History of sick sinus syndrome with pacemaker. 3. Left prior to completion of treatment. This note was generated with [employer] dictation software. It may contain incorrect words, spelling, and punctuation that were not noted in review of the chart prior to signing ED Disposition - Plan for ED Patient: Disposition: Against Medical Advice Chief Complaint: Syncope Referrals: Michael Leon MD [Primary Care Provider] -
== END 2017-10-08 20:40 | disposition left against medical advice (07) ==
PROVIDERS: Emergency Provider Emergency Medicine; Family Provider Family Medicine; PCP Family Medicine
DX: I49.5 Sick sinus syndrome (principal); R51 Headache; I10 Essential (primary) hypertension; Z88.6 Allergy status to analgesic agent; Z90.3 Acquired absence of stomach [part of]; Z95.0 Presence of cardiac pacemaker
CPT/HCPCS: 80048; 84484; 85025; 93005; 99283

== ENCOUNTER → 2017-10-14 10:53 | Outpatient (CLI) | payer MEDICARE, MEDICAID, SELFPAY | PROVIDERS: Family Provider Family Medicine; PCP Family Medicine; Visit Provider Anesthesiology | DX: M54.6 Pain in thoracic spine (principal); M54.14 Radiculopathy, thoracic region ==

== ENCOUNTER → 2017-10-29 11:08 | Outpatient (CLI) | payer MEDICARE, MEDICAID, SELFPAY ==
[2017-10-29 13:21] LABS: Amphetamine Urine VISTA NEGATIVE (<1000 ng/mL); Barbiturate Urine VISTA NEGATIVE (< 200 ng/mL); Benzodiazepine Urine VISTA NEGATIVE (< 200 ng/mL); Cocaine Urine VISTA NEGATIVE (< 300 ng/mL); Ecstacy Urine VISTA NEGATIVE (< 500 ng/mL); Methadone Urine VISTA NEGATIVE (< 300 ng/mL); PCP Urine VISTA NEGATIVE (< 25 ng/mL); THC Urine VISTA NEGATIVE (< 50 ng/mL); Vista UDS pH Range 6
== END ==
PROVIDERS: Family Provider Family Medicine; PCP Family Medicine; Visit Provider Anesthesiology
DX: F11.20 Opioid dependence, uncomplicated (principal); M54.6 Pain in thoracic spine; M54.14 Radiculopathy, thoracic region
CPT/HCPCS: 72070; 80307

== ENCOUNTER → 2017-12-16 16:29 | Outpatient (CLI) | payer MEDICARE, MEDICAID, SELFPAY ==
--- NOTE | 2017-12-16 17:05 | RAD_ITS ---
STUDY: X-RAY - CERVICAL SPINE REASON FOR EXAM: Female, 52 years old. Chronic neck pain TECHNIQUE: 5 view(s) of the cervical spine were obtained. COMPARISON: None FINDINGS: Normal anterior atlantoaxial articulation. Normal odontoid process. Normal cervical lordosis. Normal vertebral bodies and endplates. Normal disc space heights. Normal visualized intervertebral neuroforamina. The soft tissue structures are unremarkable. RAD/Cerv Spine 4 or 5 Views IMPRESSION: Normal x-ray examination of the visualized cervical spine. No fracture. No disc disease. Electronically Signed: Marco Antonio hSah MD at 4:21 EDT Tel , Service support ,
== END ==
PROVIDERS: Family Provider Family Medicine; PCP Family Medicine; Referring Provider Anesthesiology; Visit Provider Anesthesiology
DX: M54.2 Cervicalgia (principal)
CPT/HCPCS: 72050

== ENCOUNTER 2017-12-27 14:30 | Outpatient (RCR) | payer MEDICARE, MEDICAID, SELFPAY ==
--- NOTE | 2017-11-07 11:25 | HP.PTEVAL ---
Patient's Visit Information RAMSES BRADSHAW is a 52 year old F referred to Physical Therapy by Ger Alcaraz MD with a diagnosis of THORACIC RADICULOPATHY. Date of Evaluation: 11/07/17 Physical Therapist: Amarilis Reed - Visit Plan Frequency: 3x /Week Duration: 2-4 Weeks Plan: POSTURE CORRECTION/STRENGTHENING, INSTRUCTION IN APPROPRIATE BODY MECHANICS AND ACTIVITY MODIFICATIONS. HOLGER UE ROM, STRETCHING AND STRENGTHENING. HEP INSTRUCTION. - Subjective Subjective: Work/Leisure: UNEMPLOYEED. Disability: YES - HEART CONDITION. Present symptoms: CENTRAL UPPER BACK PAIN. PATIENT REPORTS THAT AT TIMES SHE GETS A BULGE THERE. Present since: ABOUT 3 WEEKS AFTER THE SURGERY FOR HER CANCER THAT WAS MAY 30 2017. Pain Scale: WORST 9/10, LEAST 5/10. Currently: 09/17. Commenced as a result of: NO APPARENT REASON. Symptoms at onset: SAME. Worse: USING UPPER EXTREMITIES, LIFTING REAL HEAVY THINGS LIKE PACKING AND LIFTING BOXES. Better: ICE, RESTING ARMS. Disturbed sleep: YES. Previous history/Previous treatment: UNREMARKABLE FOR THIS PART OF HER BACK. Coughing/sneezing/straining: NEGATIVE. Gait: INDEP GAIT WITHOUT AD AND PATIENT REPORTS SHE IS REALLY FINE. Difficulty initiating urinatin: NO. Accidents: NO. Unexplained weight loss: NO. Imaging: THORACIC X-RAY - IMPRESSION: Degenerative changes without acute findings. PMH: *PACEMAKER*, HTN - SEE BELOW AND PREVIOUS PT EVAL BY THIS PT ABOUT A YEAR AGO FOR FURTHER HISTORY. 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 NO CHEMO OR RADIATION. ALSO HAD GALLBLADDER REMOVED ALONG WITH PART OF HER STOMACH. HISTORY OF BACK SURGERY DETAILED IN LAST PT EVAL. STILL GETS SCIATICA BUT PATIENT STATES SHE CAN HANDLE THAT. - Objective Sitting/Standing Posture: POOR. FORWARD HEAD. ROUNDED SHOULDERS. Active Correction of posture: WORSE. Other Observations: PATIENT IS PLEASANT AND COOPERATIVE TO WORK WITH. ANY ELEVATING OF HER ARMS PROVOKES PAIN BEHAVIOR. 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 ONLY PERFORMED MMT'ING OF SHOULDERS WTIH ELBOWS AT SIDES DUE TO SIGNIFICANT C/O PAIN WITH ELEVATION. HOLGER SHOULDER IR/ER AT LEAST 4/5. HOLGER ELBOWS 5/5. Sensory deficit: HOLGER UE LIGHT TOUCH SENSATION IS INTACT AND SYMMETRICAL AND PATIENT DENIES HOLGER UE NUMBNESS OR TINGLING. ROM deficit: PATIENT HAS FULL HOLGER SHOULDER ELEVATION BUT TESTING WITH ONE REPETITION ONE ARM AT A TIME PROVOKES SEVERE UPPER BACK PAIN. Reflexes: HOLGER UE DTR'S 2/3. CERVICAL MVMT LOSS: CERVICAL ROM IS WFL ALL PLANES AND DOES NOT PROVOKE THE UPPER BACK PAIN THAT PATIENT IS HERE FOR TODAY EXCEPT THE FIRST REP OF LEFT CERV. ROTATION. THORACIC TESTING: HOLGER THORACIC ROTATION TESTING ALSO DOES NOT PROVOKE THE PAIN PATIENT IS HERE FOR TODAY. Core strength: POOR. Palpation: PATIENT IS VERY TENDER FROM THE T1 TO T7 REGION WITH LIGHT PALPATION. OTHER: STRONGLY ENCOURAGED PATIENT TO MAKE SURE HER FAMILY DOCTOR AND ABDOMINAL SURGEON ARE AWARE OF THIS NEW PAIN. SHE REPORTS SHE DID NOT THINK TO TELL HER SURGEON ABOUT HER UPPER BACK PAIN THAT STARTED 3 WEEKS AFTER THE SURGERY BECAUSE SHE JUST THOUGHT IT WAS DUE TO INACTIVITY. - Goals Goal 1:: DECREASE C/O UPPER BACK PAIN Goal Time Frame: 2-4 Weeks Goal 2:: IMPROVE HOLGER UE FUNCTIONAL PAINFREE ROM Goal Time Frame: 2-4 Weeks Goal 3:: IMPROVE HOLGER UE FUNCTIONAL STRENGTH Goal Time Frame: 2-4 Weeks Goal 4:: INDEP HEP Goal Time Frame: 2-4 Weeks - Rehabilitation Potential Rehabilitation Potential: Fair - Anticipated Interventions Patient/Client Instruction: Educate patient on: Condition, Plan of Care, Risk Factors, Benefits of Fitness Program For the Purpose of:: To improve self management Therapeutic Exercise to Include: Strength training, Body mechanics, Postural training, Flexibilty training, Passive ROM, Active ROM, Scapular Strength/Stabilization For the Purpose of:: To decrease pain, To increase ROM, To improve muscle performance and motor function, To increase tolerance to activity/condition/position, To improve ability of physical actions for home/community/work/leisure Manual Therapy Techniques to Include: Soft tissue mobilization For the Purpose of:: To decrease pain, To decrease swelling/inflammation, To increase ROM Cryotherapy (ice pack, ice massage): Yes For the Purpose of:: To decrease pain, To decrease swelling/inflammation Thank you for the opportunity to evaluate your patient. For Medicare and Medicare HMO plans, please review the plan of care and approve it. It will need to be FAXED BACK to us at [phone] for Medicare purposes. Please let me know if there are questions or concerns regarding this plan of care. Physician Signature: Date:
--- NOTE | 2017-12-11 15:26 | HP.PTREVAL_ITS ---
Ger Javed MD, It has been my pleasure to treat RAMSES BRADSHAW over the last 9 visits for THORACIC RADICULOPATHY. Please see the progress note below for an update on the physical therapy plan of care! Subjective: PATIENT REPORTS SHE FEELS STRONGER. SHE REPORTS HAS A HOME EX PROGRAM THAT SHE CAN DO NOW AND MOST OF THE TIME IT HELPS. PATIENT REPORTS SHE HAD TRIGGER POINT INJECTIONS FROM DR. JAVED SATURDAY AND THEY HELPED. PATIENT REPORTS DR. JAVED TOLD HER TO CONTINUE PHYSICAL THERAPY BUT SHE DOES NOT KNOW IF HE MEANT HERE OR AT HOME WITH HER HOME PROGRAM. SHE REPORTS IT IS HARD ON HER COMING 3 TIMES A WEEK BECAUSE IT WEARS HER OUT. PATIENT REPORTS DR. JAVED MENTIONED [facility] BUT SHE IS NOT SCHEDULED FOR ANY. PATIENT REPORTS HER NEXT APPOIN TMENT WITH DR. JAVED IS 12/20/17 AND HE HAS BEEN SEEING HER EVERY TWO WEEKS. PATIENT REPORTS RIGHT UE FEELS TINGLY AND LLE FEELS TINGLY (GOES TO SLEEP). RIGHT FOOT STILL FEELS NUMB. Objective/Function: PATIENT IS MAKING PROGRESS TOWARD ALL GOALS BUT BACK OSWESTRY SHOWS WORSENING. SHE IS PLEASANT AND COOPERATIVE TO WORK WITH. THIS PATIENT AMBULATES INDEP'LY INTO PT WITHOUT ANY ASSISTIVE DEVICES X APPROX 300 FEET WITH FAIR CADANCE. HOLGER UE ROM WFL. PATIENT IS NOW ABLE TO ELEVATE HOLGER UE'S ACTIVELY WITHOUT C/O INCREASED PAIN. 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 LEFT PRE FABRICATOR STRENGTH 60 LBS (PATIENT IS RIGHT HAND DOMINANT). HOLGER UE STRENGTH IS GROSSLY 4-5/5 WITH MMT'ING AND PATIENT REPORTED MILD INCREASED PAIN WITH TESTING SO I PROCEEDED CAREFULLY. Sensory deficit: HOLGER UE LIGHT TOUCH SENSATION IS INTACT BUT PATIENT REPORTS RIGHT UE FEELS TINGLY WITH TESTING - THE ENTIRE UE TO HER FINGERS. HOLGER UE DTR'S ARE 2/3. CERVICAL MVMT LOSS: CERVICAL ROM IS WFL ALL PLANES. THORACIC TESTING: HOLGER THORACIC ROTATION WFL WITHOUT C/O INCREASED PAIN. Core strength: POOR. 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 OTHER: PATIENT APPEARED APPREHENSIVE DURING RE-EVAL OFF AND ON AND EXPRESSED THAT SHE DOESN'T ALWAYS TELL DR. JAVED HER SYMPTOMS BECAUSE SHE DOESN'T WANT HIM TO THINK SHE IS EXAGERATING. Plan Plan: RECOMMEND CONTINUING PT PER ORIG POC DECREASING TO 2X'S A WEEK X 3 WEEKS THEN 1X A WEEK X ONE MORE WEEK WITH FOCUS ON INDEP HEP WITH WRITTEN INSTRUCTIONS. PATIENT IS AGREEABLE. Goals Goal 1:: DECREASE C/O UPPER BACK PAIN Goal Time Frame: 2-4 Weeks Goal Progress: Progressing Goal 2:: IMPROVE HOLGER UE FUNCTIONAL PAINFREE ROM Goal Time Frame: 2-4 Weeks Goal Progress: Progressing Goal 3:: IMPROVE HOLGER UE FUNCTIONAL STRENGTH Goal Time Frame: 2-4 Weeks Goal Progress: Progressing Goal 4:: INDEP HEP Goal Time Frame: 2-4 Weeks Goal Progress: Progressing Anticipated Interventions Patient/Client Instruction: Educate patient on: Condition, Plan of Care, Risk Factors, Benefits of Fitness Program For the Purpose of:: To improve self management Therapeutic Exercise to Include: Strength training, Body mechanics, Postural training, Flexibilty training, Passive ROM, Active ROM, Scapular Strength/Stabilization For the Purpose of:: To decrease pain, To increase ROM, To improve muscle performance and motor function, To increase tolerance to activity/condition/position, To improve ability of physical actions for home/community/work/leisure Manual Therapy Techniques to Include: Soft tissue mobilization For the Purpose of:: To decrease pain, To decrease swelling/inflammation, To increase ROM Cryotherapy (ice pack, ice massage): Yes For the Purpose of:: To decrease pain, To decrease swelling/inflammation Please do not hesitate to contact me at [phone] by phone or if you have questions or concerns regarding this new plan of care! Sincerely, Amarilis Reed
--- NOTE | 2018-05-08 16:36 | HP.PT.NRP ---
HP - Discharge Summary (1) - Patient Information RAMSES BRADSHAW was seen in my office for initial evaluation on 11/07/17. The following Plan of Care was established for this patient: Initial Frequency: 3x /Week Initial Duration: 2-4 Weeks - Anticipated Interventions Patient/Client Instruction: Educate patient on: Condition, Plan of Care, Risk Factors, Benefits of Fitness Program For the Purpose of:: To improve self management Therapeutic Exercise to Include: Strength training, Body mechanics, Postural training, Flexibilty training, Passive ROM, Active ROM, Scapular Strength/Stabilization For the Purpose of:: To decrease pain, To increase ROM, To improve muscle performance and motor function, To increase tolerance to activity/condition/position, To improve ability of physical actions for home/community/work/leisure Manual Therapy Techniques to Include: Soft tissue mobilization For the Purpose of:: To decrease pain, To decrease swelling/inflammation, To increase ROM Cryotherapy (ice pack, ice massage): Yes For the Purpose of:: To decrease pain, To decrease swelling/inflammation This patient was last seen in our office 12/27/17. Pertinent comments regarding their Physical therapy will appear below: This patient has not returned to Physical Therapy and is appropriate to return to MD for further follow-up as needed. At this point I will be discontinuing this patient from physical therapy. I would be happy to see this patient again in the future if found appropriate by the physician. Thank you! Amarilis Reed, PT, Cert MDT
== END 2017-12-27 19:00 | disposition home or self-care (01) ==
LOC: PT 14:30
PROVIDERS: Family Provider Family Medicine; PCP Family Medicine; Visit Provider Anesthesiology
DX: M54.14 Radiculopathy, thoracic region (principal); M54.6 Pain in thoracic spine
CPT/HCPCS: 97110; 97140; 97163; 97164

== ENCOUNTER 2018-01-06 10:00 | Day surgery (SDC) | payer MEDICARE, MEDICAID, SELFPAY ==
[2018-01-06 10:20] VITALS: BP 113/77; PULSE 68; RESP 16; TEMP 36.8; O2SAT 97; BMI 28.5
--- NOTE | 2018-01-06 11:00 | IMM_PTH ---
PATIENT: RAMSES BRADSHAW LOC: EN U#:[id number] AGE/SX: 52/F ROOM: RE01/06/[address]: Dr. Clarissa Jose MD : [id number] BED: DIS: 01/06/2018 SPEC #: [id number] RECD: 01/07/18 09:47 STATUS: MARYANN REQ #: [id number] LILLIE: 01/06/18 11:[address]: Clarissa Jose DEPT: IMMUNOHISTOCHEMISTRY RECD BY: Lizeth Benitez ENTERED: 01/07/18 09:48 SP TYPE: IMMUNO OTHR DR: Dr. Bobby Leon MD Tissues: B - Stomach, NOS Procedures: H Pylori (initial) PHYSICIAN & INSTITUTION [facility] [phone] SPECIMEN INFORMATION: Tissue Source: A - Gastric antrum Clinical Info: Neuroendocrine tumor of stomach, nausea, GERD, epigastric abdominal pain Specimen Number: [id number] CPT code: 99127 METHODOLOGY: Deparaffinized sections of prefer/formalin-fixed tissue or PAP/DQ stained slides are incubated with monoclonal/polyclonal antibodies/oligonucleotide probes. Localization is made via biotin free immunoperoxidase method. Appropriate controls are performed and reacted as expected. Results on target cell population are indicated in the following table: RESULTS: ANTIBODY / CLONE RESULT Block A H Pylori (polyclonal) negative These tests were developed and their performance characteristics determined by [facility]. They may not have been cleared or approved by the U.S. Food and Drug Administration. The FDA has determined that such clearance or approval is not necessary. INTERPRETATION: A. Gastric antrum: Negative for Helicobacter pylori organisms. YOUSIF:marty 01/07/18
--- NOTE | 2018-01-06 11:00 | EGD_PTH ---
PATIENT: RAMSES BRADSHAW LOC: EN U#:[id number] AGE/SX: 52/F ROOM: RE01/06/[address]: Dr. Clarissa Jose MD : 1965 BED: DIS: 01/06/2018 SPEC #: [id number] RECD: 01/06/18 11:57 STATUS: MARYANN REColette #: [id number] LILLIE: 01/06/18 11:[address]: Clarissa Jose DEPT: SURGICAL PATHOLOGY RECD BY: Wild Gaines ENTERED: 01/06/18 12:59 SP TYPE: EGD BIOPSY OT DR: Dr. Bobby Leon MD Tissues: A - Gastric mucous membrane B - Gastric mucous membrane Procedures: Special Stain Group II Surgery Specimen Level IV Alcian Blue/PAS (control) HEADER OPERATION: EGD ([facility] – [place], [place]) PRE-OP DIAGNOSIS: Neuroendocrine tumor of stomach, nausea, GERD, epigastric abdominal pain TISSUE SUBMITTED: A - Biopsy gastric antrum, H. pylori and path, B - Biopsy GE junction MICROSCOPIC DIAGNOSIS A. Gastric antrum, biopsy: Mild gastritis. B. GE junction, biopsy: Fragments of gastroesophageal mucosa with focal intestinal metaplasia (goblet cell metaplasia), consistent with Martel's esophagus. Negative for dysplasia. Chronic inflammation. See comment. SJ:marty 01/07/18 COMMENT A. The results of immunohistochemistry for Helicobacter pylori will be reported separately ([id number]). B. Alcian blue/PAS stain with matched control is used in the evaluation of the specimen. Please make reference to previous specimen ([id number]), gastric fundus, biopsy with diagnosis of neuroendocrine tumor. MICROSCOPIC DESCRIPTION Slides are reviewed. A. The specimen shows fragments of gastric mucosa with chronic inflammatory cell infiltrates in the lamina propria consisting of lymphocytes and plasma cells, consistent with mild chronic gastritis. GROSS DESCRIPTION A - Received in fixative is one container labeled with the patient's name and designated biopsy gastric antrum. The specimen consists of one irregular fragment of light aburto soft tissue that measures 0.5 x 0.2 x 0.1 cm. The specimen is totally submitted in one cassette. B - Received in fixative is one container labeled with the patient's name and designated biopsy GE junction. The specimen consists of two irregular fragments of light aburto soft tissue that in aggregate measure 0.5 x 0.2 x 0.1 cm. The specimen is totally submitted in one cassette. / SJ:rg 01/06/18 TC:3 CPT: 02781 x2, 29363
[2018-01-06 11:37] VITALS: BP 113/77; BP 80/32; PULSE 61; RESP 16; TEMP 36.1; O2SAT 96
[2018-01-06 11:45] VITALS: BP 113/77; BP 81/55; PULSE 62; RESP 16; O2SAT 100
--- NOTE | 2018-01-06 11:45 | OP.ENDO_ITS ---
Patient Name: Orquidea oRman Procedure Date: 01/06/2018 11:06 AM Date of : 1965 Age: 52 Procedure: Upper GI endoscopy Indications: Gastro-esophageal reflux disease, Follow-up of gastric neuroendocrine tumor s/p wedge excision Providers: Clarissa Jose MD Referring MD: Clarissa Jose MD Medicines: Monitored Anesthesia Care Patient Profile: s/p laparoscopic wedge gastrectomy for neuroendocrine tumor in June 2017, with new nausea/epigastric pain on PPI 40 mg PO BID x 2-3 weeks Complications: No immediate complications. Procedure: Pre-Anesthesia Assessment: - Prior to the procedure, a History and Physical was performed, and patient medications and allergies were reviewed. The patient's tolerance of previous anesthesia was also reviewed. The risks and benefits of the procedure and the sedation options and risks were discussed with the patient. All questions were answered, and informed consent was obtained. Prior Anticoagulants: The patient has taken no previous anticoagulant or antiplatelet agents. ASA Grade Assessment: II - A patient with mild systemic disease. After reviewing the risks and benefits, the patient was deemed in satisfactory condition to undergo the procedure. After obtaining informed consent, the endoscope was passed under direct vision. Throughout the procedure, the patient's blood pressure, pulse, and oxygen saturations were monitored continuously. The gastroscope was introduced through the mouth, and advanced to the second part of duodenum. The upper GI endoscopy was accomplished without difficulty. The patient tolerated the procedure well. Scope In: 11:18:04 AM Scope Out: 11:32:24 AM Total Procedure Duration Time 0 hours 14 minutes 20 seconds Findings: No gross lesions were noted in the duodenal bulb, in the first portion of the duodenum and in the second portion of the duodenum. No gross lesions were noted in the entire examined stomach. Biopsies were taken with a cold forceps for histology/H.pylori at antrum. The Z-line was found 35 cm from the incisors. Biopsies were taken with a cold forceps for histology. Mild mucosal changes were found at the gastroesophageal junction-biopsied. The exam was otherwise without abnormality. Impression: - No gross lesions in the duodenal bulb, in the first portion of the duodenum and in the second portion of the duodenum. - No gross lesions in the stomach. Biopsied. - Z-line, 35 cm from the incisors. Biopsied. - Mucosal changes in the esophagus. - The examination was otherwise normal. Recommendation: - Discharge patient to home. - Continue present medications. - Await pathology results. Will also d/w Dr. 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 All rights reserved. The codes documented in this report are preliminary and upon big data platform architect review may be revised to meet current compliance requirements. MD Clarissa Gardner MD 01/06/2018 11:44:58 AM This report has been signed electronically. Number of Addenda: 0 Note Initiated On: 01/06/2018 11:06 AM
[2018-01-06 11:50] VITALS: BP 113/77; BP 95/56; PULSE 60; RESP 16; O2SAT 97
[2018-01-06 11:55] VITALS: BP 113/77; BP 95/54; PULSE 60; RESP 16; TEMP 36.2; O2SAT 96
[2018-01-06 12:30] VITALS: BP 113/77
== END 2018-01-06 12:32 | disposition home or self-care (01) ==
LOC: EN 10:01 → AC 10:02
PROVIDERS: Family Provider Family Medicine; PCP Family Medicine; Referring Provider Surgery; Visit Provider Surgery
PROC: 0DJ08ZZ Inspection of Upper Intestinal Tract, Via Natural or Artificial Opening Endoscopic (ICD-10-PCS; CPT 43235; principal; 2018-01-06 10:55)
DX: K29.70 Gastritis, unspecified, without bleeding (principal); K21.0 Gastro-esophageal reflux disease with esophagitis; R10.13 Epigastric pain; R11.2 Nausea with vomiting, unspecified; D00.2 Carcinoma in situ of stomach; I10 Essential (primary) hypertension; E78.49 Other hyperlipidemia; D64.9 Anemia, unspecified; G89.4 Chronic pain syndrome; M54.5 Low back pain; F32.9 Major depressive disorder, single episode, unspecified; F41.9 Anxiety disorder, unspecified; G47.30 Sleep apnea, unspecified; E66.9 Obesity, unspecified; Z68.28 Body mass index [BMI] 28.0-28.9, adult; F17.200 Nicotine dependence, unspecified, uncomplicated; Z79.899 Other long term (current) drug therapy; Z95.0 Presence of cardiac pacemaker
CPT/HCPCS: 43239; 88305; 88313; 88342; J7120; J2405

== ENCOUNTER 2018-01-13 19:43 | Observation (INO) | payer MEDICARE, MEDICAID, SELFPAY ==
[2018-01-13] VITALS (7 sets, daily range): BP systolic 101–132; BP diastolic 54–104; PULSE 55–72; RESP 14–16; TEMP 36.6–37.1; O2SAT 95–98; BMI 30.7; BMI 29.5
--- NOTE | 2018-01-13 20:06 | EKG12_ITS ---
Test Reason : CP Blood Pressure : / mmHG Vent. Rate : 067 BPM Atrial Rate : 067 BPM P-R Int : 182 ms QRS Dur : 082 ms QT Int : 412 ms P-R-T Axes : 043 042 050 degrees QTc Int : 435 ms Normal sinus rhythm Low voltage QRS Borderline ECG Confirmed by MARK GAUTAM, CHRIS ([id number]), editorial project manager KIM KIM ([id number]) on 01/16/2018 3:33:04 PM Referred By: YAS Confirmed By:CHRIS FLORES MD
--- NOTE | 2018-01-13 20:15 | RAD_ITS ---
STUDY: X-RAY CHEST REASON FOR EXAM: Female, 52 years old. Chest pain TECHNIQUE: Single frontal view COMPARISON: August 22, 2016 FINDINGS: Stable left-sided pacemaker. The lungs are clear and expanded. There is no demonstrated pleural abnormality. Normal size heart. Normal mediastinum and archana. Normal visualized pulmonary arteries. Normal visualized aortic arch and descending thoracic aorta. Mild degenerative changes of the thoracic spine. Normal visualized ribs, clavicles, and shoulders. There is no demonstrated abnormality of the visualized soft tissue structures of the upper abdomen. RAD/Chest 1 View (Portable) IMPRESSION: Normal x-ray examination of the chest. Electronically Signed: Jerry Wilkins DO at 20:46 EST Tel [phone], Service support ,
[2018-01-13] MEDS: Ondansetron 4 MG/2 ML Vial IV (20:25)
[2018-01-13] MEDS: 0.9% Normal Saline 1,000 ML 150 ML IV (20:25)
[2018-01-13 20:36] LABS: Absolute Lymphocyte Count 4.46 X10^3/ul (0.83-4.51); Absolute Neutrophil Count 7.3 X10^3/uL (2.0-7.7); Basophil# 0.03 X10^3/uL; Basophil% 0.2 % (0-1); Eosinophils% 1.5 % (0-5); Hematocrit 41.3 % (37-47); International Normalized Ratio 0.9; Lymphocyte # 4.46 X10^3/ul (4.0); Lymphocyte % 34.5 % (19-41); Mean Corp Hgb Conc 33.9 g/gl (32-36); Mean Corpuscular Hgb 31.4 pg (27.0-32.0); Mean Corpuscular Volume 92.6 fL (81-99); Mean Platelet Vol. 9.5 fl (6.2-12.0); Monocyte# 0.86 X10^3/uL; Monocyte% 6.7 % (0-10); Neutrophil # 7.28 X10^3/uL (2.7-7.7); Neutrophil % 56.4 % (47-70); Platelet Count 222 K/mm3 (150-450); Prothrombin Time (Protime)PT. 11.9 SECONDS (11.7-14.9); RBC Distribution Width CV 14.5 % (11.6-14.6); RBC Distribution Width SD 47.8 fl (35.1-43.9); Red Blood Count 4.46 M/mm3 (4.2-5.4); White Blood Count 12.9 K/mm3 (4.4-11.0)
[2018-01-13 20:37] LABS: POSITIVE COUNT NO; POSITIVE DIFFERENTIAL NO; POSITIVE MORPHOLOGY NO
[2018-01-13 20:41] LABS: Anion Gap 6 (5-15); BUN 16 mg/dL (7-18); BUN/Creat Ratio 17.7 RATIO (10-20); Calcium,Total 8.4 mg/dL (8.5-10.1); Chloride 112 mmol/L (98-107); EST Glomerular Filtration Rate 69 mL/min (>60); Est Glom Filt Rate - Afr Amer 84 mL/min (>60); Estimated Creatinine Clearance 57.83 ml/min; Glucose 95 mg/dL (74-106); Sodium Level 142 mmol/L (136-145)
[2018-01-13] MEDS: HYDROmorphone 0.5 MG/0.5 ML SYRINGE IV ×2 (20:48→23:01)
--- NOTE | 2018-01-13 22:01 | ED.DCSUM_ITS ---
- ER Visit Summary Date of Service: 01/13/18 Chief Complaint: Chest pain History of Present Illness: The patient is a 52 F who reports onset of chest pain around 130 this afternoon. She describes as a pressure or heaviness in the left central portion of her chest with radiation to her left shoulder and left arm. She does report shortness of breath. Past history significant for sick sinus syndrome with pacemaker. She had partial stomach removed last year secondary to a neuroendocrine tumor. She has a history of hypertension. Patient follows with Dr. Ramirez of cardiology. Physical Examination: Vital signs are unremarkable. Patient is sitting upright in bed. She appears uncomfortable but no acute distress. Head neck examination normal. Heart is regular rate and rhythm. Lungs sounds clear. Chest wall is nontender. Abdomen is soft nontender. Extremity examination reveals strong pulses throughout with good sensation. Test Results: Portable chest x-ray is unremarkable. EKG is sinus at 67 with no sign of acute ischemia. CBC reveals a white count of 12.9 with normal differential. Chemistry studies normal. Troponin negative. Emergency Department Course and Treatment: Patient states that she cannot take aspirin secondary to her prior stomach surgery. She was given a dose of Dilaudid and Zofran. Patient was discussed with hospitalist will be admitted for cycling of cardiac enzymes and further cardiac evaluation. Treatment Plan: [] Disposition: Admit Impression: Chest pain This note was generated with Relatient dictation software. It may contain incorrect words, spelling, and punctuation that were not noted in review of the chart prior to signing ED Disposition - Plan for ED Patient: Disposition: Acute Care Hospital [facility] Chief Complaint: Chest Pain
--- NOTE | 2018-01-13 22:19 | HP.PCM_ITS ---
Problem List (1) Chest pain Status: Acute (2) Presence of cardiac pacemaker Status: Chronic (3) Sick sinus syndrome Status: Chronic (4) History of anxiety disorder Status: Chronic (5) Benign essential hypertension Status: Chronic (6) Obesity Status: Chronic (7) Familial combined hyperlipidemia Status: Chronic (8) Chronic pain syndrome Status: Chronic History of Present Illness Date of Admission: 01/13/18 Chief Complaint: chest pain The patient is a 52 year old female patient who presents to the ER with chest pain. Onset began at 1:00pm today and occurred while at rest. It has continued since. She describes it as sharp and substernal and non radiating. She has a history of cardiac pacemaker placed several years ago for sick sinus syndrome. Recently she had a partial resection of her stomach for a neuroendocrine tumor. She is to have a CT scan on Saturday for this as an outpatient. She had a normal stress test in 2015. She will be admitted for observation and cardiac rule out. Past Medical History Past Medical History (Chronic Problems): Chronic Problems (Last Reviewed 12/27/17 @ 10:29 by Evangelina Greene) Skin lesion of breast (Chronic) Right medial breast near sternum Presence of cardiac pacemaker (Chronic) Sick sinus syndrome (Chronic) History of anxiety disorder (Chronic) Benign essential hypertension (Chronic) Obesity (Chronic) Familial combined hyperlipidemia (Chronic) Status post placement of cardiac pacemaker (Chronic) Tobacco dependence syndrome (Chronic) Chronic pain syndrome (Chronic) Chronic lower back pain (Chronic) Sinus pause (Chronic) Medical History: Medical History (Last Reviewed 12/27/17 @ 10:29 by Evangelina Greene) Neuroendocrine neoplasm of stomach (Acute) D3A.8 History of anxiety disorder (Chronic) Z86.59 Benign essential hypertension (Chronic) I10 Obesity (Chronic) E66.9 Familial combined hyperlipidemia (Chronic) E78.4 Tobacco dependence syndrome (Chronic) F17.200 Chronic pain syndrome (Chronic) Chest tightness (Acute) R07.89 Chronic lower back pain (Chronic) M54.5, G89.29 Sinus pause (Chronic) I45.5 h/o back surgery Allergies aspirin Adverse Reaction (Verified 01/02/18 11:54) Nausea/Vom/Diarrhea erythromycin base [Erythromycin Base] Adverse Reaction (Verified 12/27/17 10:31) Vomiting,diarrhea morphine Adverse Reaction (Verified 01/13/18 20:25) Nausea/Vom/Diarrhea NSAIDS (Non-Steroidal Anti-Inflamma Adverse Reaction (Verified 12/27/17 10:31) Vomiting,diarrhea Home Medications: Ambulatory Orders Medication Instructions Recorded Duloxetine Hcl [Cymbalta] 120 mg PO DAILY 03/28/15 Levothyroxine [Synthroid] 25 mcg PO DAILY 03/28/15 Lisinopril [Zestril] 20 mg PO BID 03/28/15 Metoprolol Tartrate [Lopressor 25 mg PO BID 03/28/15 (beta aislinn)] Tolterodine Tartrate [Tolterodine 4 mg PO DAILY 04/18/16 Tartrate ER] Lorazepam [Ativan] 1 mg PO BID PRN 08/22/16 Ferrous Sulfate 325 mg PO BID 09/11/16 Zolpidem Tartrate [Ambien] 10 mg PO QHS PRN 09/11/16 Amlodipine [Norvasc] 5 mg PO DAILY 05/17/17 Cholecalciferol (Vitamin D3) 50,000 unit PO TH 10/08/17 [Vitamin D] buprenorphine 10 mcg/hour weekly 1 patch TRANSDERMAL FR 12/27/17 transdermal patch orphenadrine citrate ER 100 mg 100 mg PO BID 12/27/17 tablet,extended release pantoprazole 40 mg tablet,delayed 40 mg PO BID 12/27/17 release Ondansetron HCl [Zofran] 4 mg PO Q6H PRN PRN 01/02/18 Pregabalin [Lyrica] 50 mg PO BID 01/13/18 Surgical History: Surgical History (Last Updated 12/27/17 @ 10:29 by Evangelina Greene) Status post placement of cardiac pacemaker (Chronic) Z95.0 S/P appendectomy Z90.49 Open S/P hysterectomy Z90.710 S/P laparoscopy Z98.890 x 12 for endometriosis S/P laparotomy Z98.890 x3 [address] Pfannenstiel incision for endometriosis history excision neuroendocrine tumor Surgical History: pacemaker implantation, - - elbow surgery, hysterectemy,appendectemy, sever lap surgeries on abd, removed masses in her neck Smoking Status: Never smoker - *Family History Maternal Family History: Family History (Last Reviewed 12/27/17 @ 10:29 by Evangelina Greene) Daughter Asthma Father Heart disease Hypertension CAD (coronary artery disease) History Items: No pertinent history Review of Systems Constitutional: Denies: Chills, Fever, Weight Change HEENT: Denies: Head Aches, Sinus Congestion, Sinus Drainage Cardiovascular: Reports: Chest Pain, Chest Pressure, Chest Tightness. Denies: Palpitations Respiratory: Denies: Cough, Shortness of breath at rest, Sputum production Gastrointestinal: Denies: Abdominal Pain, Nausea, Vomiting Genitourinary: Denies: Dysuria Musculoskeletal: Denies: Joint Pain, Joint Tenderness Skin: Denies: Rash, Wounds Neurological: Denies: Numbness, Tingling, Focal weakness Psychiatric: Denies: Anxiety, Depression, Homicidal Ideations, Suicidal Ideations Hematologic/ Lymphatic: Denies: Easy Bruising, Easy Bleeding VTE Information - Inpt Only VTE Present on Admission: No VTE Mechan Device Prophylaxis: None VTE Pharm Prophylaxis ordered?: Yes Patient Problems: Active and Suspected Problems (Last Reviewed 12/27/17 @ 10:29 by Evangelina Greene) Chest pain (Acute) - Physical Exam General: Alert, Oriented x3, Cooperative HEENT: Atraumatic, Normocephalic Neck: Supple Lungs: Clear to auscultation, Normal air movement, No rhonchi, No wheeze, No rales Cardiovascular: Regular rate, Regular Rhythm, Normal S1, Normal S2, No murmurs Abdomen: Bowel Sounds Present, Soft, Non Tender Extremities: No edema, Capillary Refill Less than 3 Seconds Skin: No rashes Musculoskeletal: No Tenderness to Palpation of Joints or Extremities Neurological: Neuro grossly intact Psych/Mental Status: Normal Affect, Appropriate Vital Signs Temp Pulse Resp BP Pulse Ox 97.9 F 59 L 16 114/54 L 97 01/13/18 19:44 01/13/18 21:29 01/13/18 21:29 01/13/18 21:29 01/13/18 21:29 Oxygen Flow Rate (L/min) 2 Oxygen Delivery Method Room Air Weight: 167 lb 12.348 oz Body Mass Index (BMI) 30.7 Laboratory Tests Past 24 Hrs 01/13/18 01/13/18 01/13/18 20:00 20:00 20:00 WBC 12.9 H RBC 4.46 Hgb 14.0 Hct 41.3 MCV 92.6 MCH 31.4 MCHC 33.9 RDW 14.5 RDW Differential 47.8 H Plt Count 222 MPV 9.5 Immature Gran % (Auto) 0.700 Neut % (Auto) 56.4 Lymph % (Auto) 34.5 [place] % (Auto) 6.7 Eos % (Auto) 1.5 Baso % (Auto) 0.2 Absolute Neuts (auto) 7.3 Absolute Lymphs (auto) 4.46 Total Counted Not Reportable PT 11.9 INR 0.9 Sodium 142 Potassium 4.0 Chloride 112 H Carbon Dioxide 24.0 Anion Gap 6 BUN 16 Creatinine 0.90 Estim Creat Clear Calc 57.83 Est GFR (MDRD) Af Amer 84 Est GFR (MDRD) Non-Af 69 BUN/Creatinine Ratio 17.7 Glucose 95 Calcium 8.4 L Troponin I < 0.015 Assessment/Plan All Active Problems (Last Reviewed 12/27/17 @ 10:29 by Evangelina Greene) Chest pain (Acute) Neuroendocrine neoplasm of stomach (Acute) Syncope and collapse (Acute) Chest tightness (Acute) Accidental drug overdose (Resolved) Syncope (Resolved 12/16/12) Chronic Problems (Last Reviewed 12/27/17 @ 10:29 by Evangelina Greene) Skin lesion of breast (Chronic) Right medial breast near sternum Presence of cardiac pacemaker (Chronic) Sick sinus syndrome (Chronic) History of anxiety disorder (Chronic) Benign essential hypertension (Chronic) Obesity (Chronic) Familial combined hyperlipidemia (Chronic) Status post placement of cardiac pacemaker (Chronic) Tobacco dependence syndrome (Chronic) Chronic pain syndrome (Chronic) Chronic lower back pain (Chronic) Sinus pause (Chronic) Plan - admit for observation to PCU - avoid NSAIDs due to stomach surgery - morphine 2mg IV q2hrs prn pain, oxygen and nitro prn - Stress test in am - cycle cardiac markers per routine - continue routine home medications - LMWH for DVT prophylaxis Code Visit OBSV E&M: 85955 Initial observation care L2
--- NOTE | 2018-01-13 23:20 | EKG12_ITS ---
Test Reason : AM Blood Pressure : / mmHG Vent. Rate : 058 BPM Atrial Rate : 058 BPM P-R Int : 196 ms QRS Dur : 086 ms QT Int : 438 ms P-R-T Axes : 046 058 060 degrees QTc Int : 429 ms Sinus bradycardia Otherwise normal ECG When compared with ECG of 13-JAN-2018 23:21, MANUAL COMPARISON REQUIRED, DATA IS UNCONFIRMED Confirmed by MARK GAUTAM, CHRIS ([id number]), avid editor KIM KIM ([id number]) on 01/16/2018 4:00:47 PM Referred By: SANDRA Confirmed By:CHRIS FLORES MD
[2018-01-14] MEDS: Orphenadrine 100 MG Tablet PO ×2 (00:22→10:48)
[2018-01-14] MEDS: LORazepam 1 MG Tablet PO (00:22)
[2018-01-14] MEDS: Lisinopril 20 MG Tablet PO ×2 (00:22→05:40)
[2018-01-14] MEDS: Pregabalin 50 MG Capsule PO ×2 (00:22→10:55)
[2018-01-14] MEDS: Zolpidem Tartrate 5 MG Tablet PO (00:22)
--- NOTE | 2018-01-14 00:39 | NURSING ---
Passed 1 mg PO ativan and 5 mg PO ambien per patient request. Pt was given 0.5 mg IV dilaudid in ER at 2300. Patient continues to c/o 8/10 chest pain. Pt has a standing order of 1 mg IV dilaudid q3h PRN pain, however this RN was uncomfortable passing at this time. interior block wirer agrees. Patient is refusing tylenol. Also refusing nitro stating it causes a headache. This RN spoke with hospitalist and agrees to wait on more dilaudid for at least an hour to an hour and a half, nitro is appropriate for chest pain and he will not order anything else if patient refuses this.
[2018-01-14] MEDS: HYDROmorphone 1 MG/ML Syringe IV ×2 (02:40→05:40)
[2018-01-14] MEDS: 0.9% NaCl Peripheral Flush Adult/Peds IV (02:40)
[2018-01-14 02:58] VITALS: PULSE 66
[2018-01-14 03:36] LABS: Hematocrit 43.1 % (37-47); Hemoglobin 14.2 g/dl (12.0-15.0); Mean Corp Hgb Conc 32.9 g/gl (32-36); Mean Corpuscular Volume 94.1 fL (81-99); Mean Platelet Vol. 9.6 fl (6.2-12.0); Platelet Count 187 K/mm3 (150-450); RBC Distribution Width CV 14.6 % (11.6-14.6); RBC Distribution Width SD 49.8 fl (35.1-43.9); Red Blood Count 4.58 M/mm3 (4.2-5.4); White Blood Count 10.7 K/mm3 (4.4-11.0)
[2018-01-14 03:41] LABS: Scan Indicated on CBC? Y/N NO
[2018-01-14 03:42] LABS: International Normalized Ratio 0.9; Prothrombin Time (Protime)PT. 11.8 SECONDS (11.7-14.9)
[2018-01-14 03:43] LABS: Partial Thromboplast Time 28.6 Seconds (24.1-36.2)
[2018-01-14 03:50] LABS: Anion Gap 8 (5-15); BUN 14 mg/dL (7-18); BUN/Creat Ratio 17.5 RATIO (10-20); Calcium,Total 8.4 mg/dL (8.5-10.1); Chloride 112 mmol/L (98-107); Cholesterol 246 mg/dL (200); EST Glomerular Filtration Rate 80 mL/min (>60); Est Glom Filt Rate - Afr Amer 97 mL/min (>60); Estimated Creatinine Clearance 65.06 ml/min; Glucose 93 mg/dL (74-106); High Density Lipoprotein 33 mg/dL; Sodium Level 145 mmol/L (136-145); Triglycerides 304 mg/dL; Very Low Density Lipoprotein 61 mg/dL (5-40)
[2018-01-14 05:30] VITALS: BP 123/76; PULSE 83; RESP 16; TEMP 36.6; O2SAT 100
[2018-01-14] MEDS: Levothyroxine 25 MCG TABLET PO (05:40)
--- NOTE | 2018-01-14 05:55 | STE_ITS ---
Reason For Study: Chest pain Stress Results Maximum Predicted HR: 168 bpm Target HR: 143 bpm % Maximum Predicted HR: 85 % DurationHeart Rate Stage (mm:ss) (bpm) BP Comment Baseline 58 125/71CP 710 prior to start of test 10 mcg 3:21 58 117/60 20 mcg 3:13 69 142/67No change in CP 30 mcg 3:16 136 149/77Atropine 0.25mg given @ 0843 40 mcg 2:31 142 135/69CP 1010 Recovery 83 125/64 Stress Duration: 12:21 mm:ss Maximum Stress HR: 142 bpm Baseline Echocardiogram Findings Stress Echo Wall motion Data Resting WM Intermediate WM Stress WM Stress Results Drug infusion was stopped due to achievement of target heart rate. Normal blood pressure response to exercise. Interpretation Summary Dobutamine stress echocardiogram. Stress protocol: Resting EKG demonstrates sinus bradycardia with a rate of 58 bpm normal intervals are noted. The resting blood pressure 125/71 mmHg. Dobutamine was infused per usual protocol starting at 10 mcg/kg/min and increasing to a peak of 40 mcg/kg/min. 0.25 mg of atropine was administered to attained a maximum heart rate. Patient maintained sinus rhythm throughout the recording. The patient had complained of chest discomfort starting at the beginning of the infusion all the way to the end. The maximum blood pressure was 149/77 mmHg. At rest there were no ST or T wave changes noted suggest ischemia and at peak infusion no ST or T wave changes were noted to suggest ischemia. The maximum heart rate attained was 142 bpm which was 84% of maximum predicted heart rate. Stress echocardiogram. The resting echocardiogram demonstrated ejection fraction of 60% and a peak stress echocardiogram ejection fraction was 70% with no wall motion abnormalities present. It did not appear that clinically significant angina was noted. Conclusion: Normal dobutamine stress echocardiogram Ordering Physician: Jcarlos Price Performed By: Glendy Hughes RDCS
--- NOTE | 2018-01-14 05:55 | EKG12_ITS ---
Test Reason : CP Blood Pressure : / mmHG Vent. Rate : 067 BPM Atrial Rate : 067 BPM P-R Int : 186 ms QRS Dur : 090 ms QT Int : 424 ms P-R-T Axes : 037 050 057 degrees QTc Int : 448 ms Normal sinus rhythm Normal ECG Confirmed by MARK GAUTAM, CHRIS ([id number]), editorial director KIM KIM ([id number]) on 01/16/2018 3:15:54 PM Referred By: DENIS Confirmed By:CHRIS FLORES MD
[2018-01-14 07:06] VITALS: PULSE 54
[2018-01-14 10:44] VITALS: BP 109/66; PULSE 63; RESP 18; TEMP 36.6; O2SAT 96
[2018-01-14 10:47] VITALS: PULSE 63
[2018-01-14] MEDS: amLODIPine 5 MG Tablet PO (10:47)
[2018-01-14] MEDS: Ferrous Sulfate 325 MG Tablet PO (10:47)
[2018-01-14] MEDS: Metoprolol Tartrate 25 MG Tablet PO (10:47)
[2018-01-14] MEDS: Pantoprazole Sodium 40 MG Tablet PO (10:48)
[2018-01-14] MEDS: Tolterodine Tartrate 4 MG CAP.SA PO (10:48)
[2018-01-14] MEDS: DULoxetine Hcl 60 MG Capsule 120 MG PO (10:48)
[2018-01-14] MEDS: HYDROmorphone 0.5 MG/0.5 ML SYRINGE IV (10:55)
[2018-01-14] MEDS: Ondansetron ODT 4 MG Tablet PO (10:55)
[2018-01-14 11:04] VITALS: PULSE 60
--- NOTE | 2018-01-14 11:24 | DCINST_ITS ---
- Discharge Diagnoses Current Active Problems: Current Active and Chronic Problems (Last Reviewed 12/27/17 @ 10:29 by Evangelina Greene) Chest pain (Acute) You will use the following diet at home:: No restrictions Instructions: ED Chest Pain NonCardiac Allergies/Adverse Reactions: Allergies aspirin Adverse Reaction (Verified 01/02/18 11:54) Nausea/Vom/Diarrhea erythromycin base [Erythromycin Base] Adverse Reaction (Verified 12/27/17 10:31) Vomiting,diarrhea morphine Adverse Reaction (Verified 01/13/18 20:25) Nausea/Vom/Diarrhea NSAIDS (Non-Steroidal Anti-Inflamma Adverse Reaction (Verified 12/27/17 10:31) Vomiting,diarrhea Medications to take at Discharge Duloxetine Hcl [Cymbalta] 120 mg PO DAILY 03/28/15 Levothyroxine [Synthroid] 25 mcg PO DAILY 03/28/15 Lisinopril [Zestril] 20 mg PO BID 03/28/15 Metoprolol Tartrate [Lopressor (beta aislinn)] 25 mg PO BID 03/28/15 Tolterodine Tartrate [Tolterodine Tartrate ER] 4 mg PO DAILY 04/18/16 Lorazepam [Ativan] 1 mg PO BID PRN 08/22/16 Ferrous Sulfate 325 mg PO BID 09/11/16 Zolpidem Tartrate [Ambien] 10 mg PO QHS PRN 09/11/16 Amlodipine [Norvasc] 5 mg PO DAILY 05/17/17 Cholecalciferol (Vitamin D3) [Vitamin D3] 50,000 unit PO TH 10/08/17 buprenorphine 10 mcg/hour weekly transdermal patch 1 patch TRANSDERMAL FR 12/27/17 orphenadrine citrate ER 100 mg tablet,extended release 100 mg PO BID 12/27/17 pantoprazole 40 mg tablet,delayed release 40 mg PO BID 12/27/17 Ondansetron HCl [Zofran] 4 mg PO Q6H PRN PRN 01/02/18 Pregabalin [Lyrica] 50 mg PO BID 01/13/18 Primary Care Physician: Michael Leon MD [Primary Care Provider] - Test Results: Test results from this visit will be discussed in further detail at your follow- up appointment, if applicable. Proposed Discharge Date: 01/14/18
--- NOTE | 2018-01-14 11:25 | PCM.DC.SUM ---
Discharge Date and Diagnosis - Problem List Patient Problems: Active and Suspected Problems (Last Reviewed 12/27/17 @ 10:29 by Evangelina Greene) Chest pain (Acute) Date of Admission: 01/13/18 Date of Discharge: 01/14/18 - Primary Discharge Diagnosis Active and Suspected Problems (Last Reviewed 12/27/17 @ 10:29 by Evangelina Greene) Chest pain (Acute) - Secondary Discharge Diagnosis Chronic Problems (Last Reviewed 12/27/17 @ 10:29 by Evangelina Greene) Skin lesion of breast (Chronic) Right medial breast near sternum Neuroendocrine neoplasm of stomach (Chronic) Syncope and collapse (Chronic) Presence of cardiac pacemaker (Chronic) Sick sinus syndrome (Chronic) History of anxiety disorder (Chronic) Benign essential hypertension (Chronic) Obesity (Chronic) Familial combined hyperlipidemia (Chronic) Status post placement of cardiac pacemaker (Chronic) Tobacco dependence syndrome (Chronic) Chronic pain syndrome (Chronic) Chronic lower back pain (Chronic) Sinus pause (Chronic) Hospital Course and Treatment Imaging Results: 01/14/18 05:55 Stress Test Echo w/o Contrast [ECHO] Routine Operations: None Summary of Care Provided: The patient is a 52 year old F with recent resection of a neuroendocrine tumor involving the stomach who presented with chest pain. Patient was placed on a monitored bed ME was ruled out with serial cardiac enzymes. Patient underwent subsequent evaluation with stress test which is negative for stress-induced ischemia. Patient was discharged home instructed to follow-up with her primary general surgeon as well as PCP for subsequent care. Patient Problems: Active and Suspected Problems (Last Reviewed 12/27/17 @ 10:29 by Evangelina Greene) Chest pain (Acute) - Physical Exam General: Alert HEENT: Atraumatic Neck: Supple Lungs: Diminished Cardiovascular: Regular rate, Regular Rhythm Neurological: Neuro grossly intact Vital Signs Temp Pulse Resp BP Pulse Ox 97.9 F 60 18 109/66 96 01/14/18 10:44 01/14/18 11:04 01/14/18 10:44 01/14/18 10:44 01/14/18 10:44 Oxygen Flow Rate (L/min) 2 Oxygen Delivery Method Room Air Weight: 74.3 kg Body Mass Index (BMI) 29.5 Laboratory Tests Past 24 Hrs 01/13/18 01/13/18 01/13/18 20:00 20:00 20:00 WBC 12.9 H RBC 4.46 Hgb 14.0 Hct 41.3 MCV 92.6 MCH 31.4 MCHC 33.9 RDW 14.5 RDW Differential 47.8 H Plt Count 222 MPV 9.5 Immature Gran % (Auto) 0.700 Neut % (Auto) 56.4 Lymph % (Auto) 34.5 [place] % (Auto) 6.7 Eos % (Auto) 1.5 Baso % (Auto) 0.2 Absolute Neuts (auto) 7.3 Absolute Lymphs (auto) 4.46 Total Counted Not Reportable PT 11.9 INR 0.9 APTT Sodium 142 Potassium 4.0 Chloride 112 H Carbon Dioxide 24.0 Anion Gap 6 BUN 16 Creatinine 0.90 Estim Creat Clear Calc 57.83 Est GFR (MDRD) Af Amer 84 Est GFR (MDRD) Non-Af 69 BUN/Creatinine Ratio 17.7 Glucose 95 Calcium 8.4 L Troponin I < 0.015 Triglycerides Cholesterol LDL Cholesterol VLDL Cholesterol HDL Cholesterol 01/13/18 01/14/18 01/14/18 23:26 02:34 02:34 WBC 10.7 RBC 4.58 Hgb 14.2 Hct 43.1 MCV 94.1 MCH 31.0 MCHC 32.9 RDW 14.6 RDW Differential 49.8 H Plt Count 187 MPV 9.6 Immature Gran % (Auto) Neut % (Auto) Lymph % (Auto) [place] % (Auto) Eos % (Auto) Baso % (Auto) Absolute Neuts (auto) Absolute Lymphs (auto) Total Counted PT INR APTT Sodium 145 Potassium 4.0 Chloride 112 H Carbon Dioxide 25.0 Anion Gap 8 BUN 14 Creatinine 0.80 Estim Creat Clear Calc 65.06 Est GFR (MDRD) Af Amer 97 Est GFR (MDRD) Non-Af 80 BUN/Creatinine Ratio 17.5 Glucose 93 Calcium 8.4 L Troponin I < 0.015 Triglycerides 304 H Cholesterol 246 H LDL Cholesterol 152 H VLDL Cholesterol 61 H HDL Cholesterol 33 L 01/14/18 01/14/18 02:34 02:34 WBC RBC Hgb Hct MCV MCH MCHC RDW RDW Differential Plt Count MPV Immature Gran % (Auto) Neut % (Auto) Lymph % (Auto) [place] % (Auto) Eos % (Auto) Baso % (Auto) Absolute Neuts (auto) Absolute Lymphs (auto) Total Counted PT 11.8 INR 0.9 APTT 28.6 Sodium Potassium Chloride Carbon Dioxide Anion Gap BUN Creatinine Estim Creat Clear Calc Est GFR (MDRD) Af Amer Est GFR (MDRD) Non-Af BUN/Creatinine Ratio Glucose Calcium Troponin I < 0.015 Triglycerides Cholesterol LDL Cholesterol VLDL Cholesterol HDL Cholesterol Discharge Diet: No Restrictions Home Medications: Medications to take at Discharge Duloxetine Hcl [Cymbalta] 120 mg PO DAILY 03/28/15 Levothyroxine [Synthroid] 25 mcg PO DAILY 03/28/15 Lisinopril [Zestril] 20 mg PO BID 03/28/15 Metoprolol Tartrate [Lopressor (beta aislinn)] 25 mg PO BID 03/28/15 Tolterodine Tartrate [Tolterodine Tartrate ER] 4 mg PO DAILY 04/18/16 Lorazepam [Ativan] 1 mg PO BID PRN 08/22/16 Ferrous Sulfate 325 mg PO BID 09/11/16 Zolpidem Tartrate [Ambien] 10 mg PO QHS PRN 09/11/16 Amlodipine [Norvasc] 5 mg PO DAILY 05/17/17 Cholecalciferol (Vitamin D3) [Vitamin D3] 50,000 unit PO TH 10/08/17 buprenorphine 10 mcg/hour weekly transdermal patch 1 patch TRANSDERMAL FR 12/27/17 orphenadrine citrate ER 100 mg tablet,extended release 100 mg PO BID 12/27/17 pantoprazole 40 mg tablet,delayed release 40 mg PO BID 12/27/17 Ondansetron HCl [Zofran] 4 mg PO Q6H PRN PRN 01/02/18 Pregabalin [Lyrica] 50 mg PO BID 01/13/18 Primary Care Physician: Michael Leon MD [Primary Care Provider] - Patient Instructions: ED Chest Pain NonCardiac Medical Necessity - Tobacco Use Smoking Status: Never smoker Meaningful Use Info Meaningful Use Diagnoses (Choose all that apply): None applicable Code Visit OBSV E&M: 92703 Observation care discharge
== END 2018-01-14 11:21 | disposition home or self-care (01) ==
LOC: ED 20:33 → PCU 22:35
PROVIDERS: Admitting Provider Family Medicine; Emergency Provider Emergency Medicine; Family Provider Family Medicine; PCP Family Medicine; Visit Provider Internal Medicine
DX: R07.89 Other chest pain (principal); R06.02 Shortness of breath; I10 Essential (primary) hypertension; Z95.0 Presence of cardiac pacemaker; Z79.899 Other long term (current) drug therapy; E78.49 Other hyperlipidemia; G89.4 Chronic pain syndrome; F41.9 Anxiety disorder, unspecified; E66.9 Obesity, unspecified; Z68.29 Body mass index [BMI] 29.0-29.9, adult; Z71.3 Dietary counseling and surveillance; Z87.891 Personal history of nicotine dependence; H81.10 Benign paroxysmal vertigo, unspecified ear; Z72.0 Tobacco use; Z90.3 Acquired absence of stomach [part of]
CPT/HCPCS: 36415; 71045; 80048; 80061; 84484; 85025; 85027; 85610; 85730; 93005; 93017; 93350; 96361; 96374; 96375; 96376; 99218; 99284; 99285; J7030; J7040; A4216; G0378; J2405

== ENCOUNTER 2018-01-14 15:26 | Emergency (ER) | payer MEDICARE, MEDICAID, SELFPAY ==
[2018-01-14 15:28] VITALS: BP 112/70; PULSE 68; RESP 18; TEMP 36.1; O2SAT 99; BMI 29.2
--- NOTE | 2018-01-14 16:23 | ED.VISSUMM ---
- ER Visit Summary Date of Service: 01/14/18 Chief Complaint: Dizziness, diaphoresis and nausea History of Present Illness: The patient is a 52 F who was discharged from the hospital today after chest pain workup. She states she was walking in the house when she became dizzy. Patient's definition of dizziness and spinning. She denied double vision, blurred vision or loss of vision. She denied further with speech or swallowing. She denied paresthesia, anesthesia motors. She denies clumsiness or falling. She denies black, maroon or bloody stool. 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 She had a partial gastrectomy May 2017. Please read written note for complete detail Physical Examination: Vital signs noted and normal. Head is atraumatic normocephalic. Pupils are equal round reactive. Extraocular muscles are intact. TMs are pearly white with landmarks noted. Nares patent with no drainage. Posterior pharynx without erythema or exudate. Uvula is midline. There is no dysphonia or dysphasia. Trachea is midline. There is no stridor with auscultation of the neck. Heart is regular without murmur, gallop or rub. S1 and S2 are normal. Lungs are clear to auscultation with good movement of air bilaterally. Abdomen soft nontender. Patient is alert and oriented ?3. Motor is 5 over 5. Sensory is intact. DTRs are symmetric with no clonus or Babinski sign. Cranial 2 through 12 are intact. Cerebellar testing is normal. Flat/depressed affect. Test Results: Murphys-Hallpike maneuver positive Emergency Department Course and Treatment: Ignacia maneuver with resolution of symptoms Treatment Plan: Appropriate home-going instructions Disposition: Discharge to home Impression: Paroxysmal benign positional vertigo This note was generated with [employer] software. It may contain incorrect words, spelling, and punctuation that were not noted in review of the chart prior to signing ED Disposition - Plan for ED Patient: Disposition: Home or Assisted Living Chief Complaint: Syncope Instructions: ED BPV Vertigo Referrals: Michael Leon MD [Primary Care Provider] - As Needed
--- NOTE | 2018-01-14 16:27 | ED.DCSUM_ITS ---
- ER Visit Summary Date of Service: 01/14/18 Chief Complaint: Dizziness, diaphoresis and nausea History of Present Illness: The patient is a 52 F who was discharged from the hospital today after chest pain workup. She states she was walking in the house when she became dizzy. Patient's definition of dizziness and spinning. She denied double vision, blurred vision or loss of vision. She denied further with speech or swallowing. She denied paresthesia, anesthesia motors. She denies clumsiness or falling. She denies black, maroon or bloody stool. 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 She had a partial gastrectomy May 2017. Please read written note for complete detail Physical Examination: Vital signs noted and normal. Head is atraumatic normocephalic. Pupils are equal round reactive. Extraocular muscles are intact. TMs are pearly white with landmarks noted. Nares patent with no drainage. Posterior pharynx without erythema or exudate. Uvula is midline. There is no dysphonia or dysphasia. Trachea is midline. There is no stridor with auscultation of the neck. Heart is regular without murmur, gallop or rub. S1 and S2 are normal. Lungs are clear to auscultation with good movement of air bilaterally. Abdomen soft nontender. Patient is alert and oriented ?3. Motor is 5 over 5. Sensory is intact. DTRs are symmetric with no clonus or Babinski sign. Cranial 2 through 12 are intact. Cerebellar testing is normal. Flat /depressed affect. Test Results: Adria-Hallpike maneuver positive Emergency Department Course and Treatment: Ignacia maneuver with resolution of symptoms Treatment Plan: Appropriate home-going instructions Disposition: Discharge to home Impression: Paroxysmal benign positional vertigo This note was generated with [employer] software. It may contain incorrect words, spelling, and punctuation that were not noted in review of the chart prior to signing ED Disposition - Plan for ED Patient: Disposition: Home or Assisted Living Chief Complaint: Syncope Instructions: ED BPV Vertigo Referrals: Michael Leon MD [Primary Care Provider] - As Needed
== END 2018-01-14 16:43 | disposition home or self-care (01) ==
PROVIDERS: Emergency Provider Emergency Medicine; Family Provider Family Medicine; PCP Family Medicine
DX: H81.10 Benign paroxysmal vertigo, unspecified ear (principal); I10 Essential (primary) hypertension; E66.9 Obesity, unspecified; Z72.0 Tobacco use; Z90.3 Acquired absence of stomach [part of]; Z79.899 Other long term (current) drug therapy
CPT/HCPCS: 99284

== ENCOUNTER → 2018-01-17 13:23 | Outpatient (CLI) | payer MEDICARE, MEDICAID, SELFPAY ==
--- NOTE | 2018-01-17 13:25 | CT_ITS ---
STUDY: CT ABDOMEN AND PELVIS WITH CONTRAST REASON FOR EXAM: Female, 52 years old. Neuroendocrine tumor removed from stomach. RADIATION DOSAGE (If Supplied By Facility): CTDIvol = ( 17.41 ) mGy, DLP = ( 1125.50 ) mGycm TECHNIQUE: Transaxial images were obtained from the dome of the diaphragm to the symphysis pubis with oral contrast. 100ML ml of Isovue 300 contrast was administered. Sagittal and coronal images were reconstructed. Individualized dose optimization techniques were used for this CT. COMPARISON: 08/22/2017. FINDINGS: The visualized portions of the lung bases demonstrate mild stranding/scarring in the lingula. The visualized portions of the heart are within normal limits. There again is mild diffuse fatty infiltration of the liver. No focal lesion is seen. There are surgical clips in the gallbladder fossa consistent with a prior cholecystectomy. Normal spleen. Normal pancreas. Normal bilateral adrenal glands. Normal right kidney. Normal left kidney. The stomach is distended. Normal small intestine. There is no evidence of acute diverticulitis. There is fecal retention. There is non-visualization of the appendix. Normal abdominal aorta. Normal inferior vena cava. Normal retroperitoneum. Normal urinary bladder. There is a very small umbilical hernia containing fat. The patient again is status post posterior fusion of L4-L5 and L5-S1 with bilateral pedicle screws and laminectomy. CT/Abdomen/Pelvis WITH Contrast IMPRESSION: 1. Fatty infiltration of the liver. 2. No demonstrated acute changes. Electronically Signed: Abimael Simon MD at 14:37 EST Tel , Service support ,
== END ==
PROVIDERS: Family Provider Family Medicine; PCP Family Medicine; Referring Provider Surgery; Visit Provider Surgery
DX: R10.9 Unspecified abdominal pain (principal)
CPT/HCPCS: 74177; Q9967

== ENCOUNTER → 2018-02-10 09:07 | Outpatient (CLI) | payer MEDICARE, MEDICAID, SELFPAY ==
--- NOTE | 2018-02-10 09:10 | RAD_ITS ---
STUDY: AIR-CONTRAST UPPER GI SERIES AND SMALL BOWEL FOLLOW-THROUGH EXAMINATION. REASON FOR EXAM: Female, 52 years old. Vomiting. Recent resection of a gastric neuroendocrine tumor. FLUOROSCOPY TIME (if supplied): (1:55) minutes/seconds. 20 images were obtained. TECHNIQUE: The patient ingested barium. Multiple images of the esophagus stomach and duodenum were obtained. Following this, a small bowel follow-through examination was performed. COMPARISON: None. FINDINGS: A proposal analyst film was obtained. The gas pattern is unremarkable. Surgical clips are seen in the right upper quadrant. There is evidence of prior laminectomy and fusion in the lower lumbar spine. The esophagus is unremarkable. There is no evidence of esophageal obstruction. No mass lesion is seen. There is no evidence of gastroesophageal reflux. There is evidence of a thickened folds in the fundal portion of the stomach. No mass lesion is seen. A small bowel follow-through examination was then performed. The transit time is normal. No intrinsic or extrinsic small bowel disease is present. RAD/Upper GI/w Small Bowel IMPRESSION: Findings suggestive of gastric mucosal fold thickening in the fundal portion of the stomach. Electronically Signed: Ming Roberts MD at 10:12 EST Tel [phone], Service support ,
--- OUTSIDE RECORDS SUMMARY | 2018-04-05 11:58 | XMS RPT_ITS ---
:1965 Author Organization OHIP Support Name Relationship Address Phone RIDDHI JONAS Unavailable [address] + [place] [address] D Unavailable Unavailable Unavailable LUIS VITA Unavailable Unavailable + JONAS, RIDDHI Unavailable [address] + [place] [address] D Unavailable Unavailable Unavailable LUIS, VITA Unavailable Unavailable + JONAS, RIDDHI Unavailable [address] + [place] [address] D Unavailable Unavailable Unavailable LUIS, VITA Unavailable Unavailable + JONAS, RIDDHI Unavailable [address] + [place] [address] D Unavailable Unavailable Unavailable LUIS, VITA Unavailable Unavailable + JONAS, RIDDHI Unavailable [address] + [place] [address] D Unavailable Unavailable Unavailable LUIS, VITA Unavailable Unavailable + JONAS, RIDDHI Unavailable [address] + [place] [address] D Unavailable Unavailable Unavailable LUIS, VITA Unavailable Unavailable + JONAS, RIDDHI Unavailable [address] + [place] [address] D Unavailable Unavailable Unavailable LUIS, VITA Unavailable Unavailable + JONAS, RIDDHI Unavailable [address] + [place] [address] D Unavailable Unavailable Unavailable LUIS, VITA Unavailable Unavailable + OJNAS, RIDDHI Unavailable [address] + [facility] [place] [address] D Unavailable Unavailable Unavailable LUIS, VITA Unavailable Unavailable + JONASJHONNY GONZALEZA Unavailable [address] + [facility] [place] [address] D Unavailable Unavailable Unavailable LUIS, VITA Unavailable Unavailable + JONASJHONNY GONZALEZA Unavailable [address] + [facility] [place] [address] D Unavailable Unavailable Unavailable LUIS, VITA Unavailable Unavailable + JONASJHONNYA Unavailable [address] + [facility] [place] [address] D Unavailable Unavailable Unavailable LUIS, VITA Unavailable . + ., [place] . JHONNY JONASA Unavailable [address] + [facility] [place] [address] D Unavailable Unavailable Unavailable LUIS, VITA Unavailable . + ., [place] . JONASJHONNY GONZALEZA Unavailable [address] + [facility] [place] [address] D Unavailable Unavailable Unavailable LUIS, VITA Unavailable Unavailable + JONASJHONNY GONZALEZA Unavailable [address] + [place] [address] D Unavailable Unavailable Unavailable LUIS, VITA Unavailable Unavailable + JONASJHONNY GONZALEZA Unavailable [address] + [place] [address] D Unavailable Unavailable Unavailable LUIS, VITA Unavailable Unavailable + JONASJHONNY GONZALEZA Unavailable [address] + [facility] [place] [address] D Unavailable Unavailable Unavailable LUIS, VITA Unavailable Unavailable + MERRY MYERS Unavailable [address] + [address] [place], [place] [id number] NOT GIVEN Unavailable Unavailable Unavailable JONAS RIDDHI Unavailable [address] + [place] [address] D Unavailable Unavailable Unavailable LUIS, VITA Unavailable Unavailable + JONAS, RIDDHI Unavailable [address] + [facility] [place] [address] D Unavailable Unavailable Unavailable LUIS VITA Unavailable Unavailable + JONAS, RIDDHI Unavailable [address] + [facility] [place] [address] D Unavailable Unavailable Unavailable LUIS, VITA Unavailable N + [place], [place] MERRY MYERS Unavailable [address] [facility] + [address] [place], [place] [id number] JONAS, RIDDHI Unavailable [address] + [place] [address] D Unavailable Unavailable Unavailable LUIS, VITA Unavailable N + [place], [place] JONAS, RIDDHI Unavailable [address] + [place] [address] D Unavailable Unavailable Unavailable LUIS, VITA Unavailable N + [place], [place] JONAS, RIDDHI Unavailable [address] + [facility] [place] [address] D Unavailable Unavailable Unavailable LUIS, VITA Unavailable N + [place], [place] JONAS, RIDDHI Unavailable [address] + [facility] [place] [address] D Unavailable Unavailable Unavailable LUIS, VITA Unavailable N + [place], [place] JONAS, RIDDHI Unavailable [address] + [facility] [place] [address] D Unavailable Unavailable Unavailable LUIS, VITA Unavailable N + [place], [place] JONAS, RIDDHI Unavailable [address] + [place] [address] D Unavailable Unavailable Unavailable LUIS, VITA Unavailable N + [place], [place] JONAS, RIDDHI Unavailable [address] + [facility] [place] [address] D Unavailable Unavailable Unavailable LUIS, VITA Unavailable N + [place], [place] JONAS, RIDDHI Unavailable [address] + [place] [address] D Unavailable Unavailable Unavailable LUIS, VITA Unavailable N + [place], [place] JONAS, RIDDHI Unavailable [address] + [place] [address] D Unavailable Unavailable Unavailable LUIS, VITA Unavailable Unavailable + JONAS, RIDDHI Unavailable [address] + [place] [address] D Unavailable Unavailable Unavailable LUIS, VITA Unavailable Unavailable + JONAS, RIDDHI/CALL Unavailable [address] + [place] [address] D Unavailable Unavailable Unavailable LUIS, VITA Unavailable . + ., . . JONAS, RIDDHI/CALL Unavailable [address] + [place] [address] D Unavailable Unavailable Unavailable LUIS, VITA Unavailable . + ., . . JONAS, RIDDHI/CALL Unavailable [address] + [place] [address] D Unavailable Unavailable Unavailable LUIS, VITA Unavailable . + ., . . Care Team Providers Name Role Phone Gee Leon Attending Unavailable [facility] Unavailable Kaushal Mendoza Attending Unavailable [facility], [facility] Primary [facility] Unavailable Robotham, Clarissa Attending Unavailable Ranjackson, Christopher Referring Unavailable [facility], [facility] Unavailable Robotham, Clarissa Attending Unavailable Robotham, Clarissa Referring Unavailable [facility], [facility] Primary Care Unavailable Robotham, Clarissa Attending Unavailable Robotham, Clarissa Referring Unavailable Ranjackson, Christopher Primary Care Unavailable Robotham, Clarissa Consulting Unavailable Imelda Hernandez Attending Unavailable Ranjackson, Christopher Referring Unavailable Ranjackson, Christopher Primary Care Unavailable Robotham, Clarissa Attending Unavailable Robotham, Clarissa Referring Unavailable Ranjackson, Christopher Primary Care Unavailable Robotham, Clarissa Attending Unavailable Ranjackson, Christopher Referring Unavailable Ranjackson, Christopher Primary Care Unavailable Robotham, Clarissa Attending [facility]available [facility] Unavailable Robotham, Clarissa Referring Unavailable Robotham, Clarissa Attending Unavailable Ranjackson, Christopher Referring Unavailable [facility] Primary Care Unavailable Robotham, Clarissa Attending Unavailable [facility] Unavailable Robotham, Clarissa Referring Unavailable Robotham, Clarissa Attending Unavailable Robotham, Clarissa Referring Unavailable [facility] Primary Care Unavailable Robotham, Clarissa Consulting Unavailable [facility] Primary Care Unavailable Debi Amaya Attending Unavailable [facility] Primary Care Unavailable Ubaldo Dhillon Attending Unavailable [facility] Primary Care Unavailable Tegan, Sameh Attending Unavailable Tegan, Sameh Referring Unavailable [facility] Primary Care Unavailable Crystal Mcdowell Attending Unavailable [facility] Primary Care Unavailable Kaushal Mendoza Attending Unavailable Tegan, Sameh Attending Unavailable [facility] Primary Care Unavailable Tegan, Sameh Attending Unavailable [facility] Primary Care Unavailable Tegan, Sameh Referring Unavailable Imelda Hernandez Attending Unavailable [facility] Referring Unavailable Tegan, Sameh Attending Unavailable Tegan, Sameh Referring Unavailable [facility] Primary Care Unavailable Imelda Hernandez Attending Unavailable [facility], [facility] Referring Unavailable Robotham, Clarissa Attending Unavailable [facility], [facility] Referring Unavailable Robotham, Clarissa Attending Unavailable Robotham, Clarissa Referring Unavailable [facility] Primary Care Unavailable [facility] Primary Care Unavailable Jcarlos Price Admitting Unavailable Autumn Gorman Attending Unavailable Jcarlos Price Attending Unavailable [facility] Primary Care Unavailable Jcarlos Price Admitting Unavailable Autumn Gorman Attending Unavailable [facility], [facility] Primary [facility] Unavailable Autumn Gorman Consulting Unavailable [facility], [facility] Primary Care Unavailable DanielsCalebo Attending Unavailable Robotham, Clarissa Attending Unavailable Robotham, Clarissa Referring Unavailable [facility] Unavailable Robotham, Clarissa Attending Unavailable Robotham, Clarissa Referring Unavailable [facility] Primary Care Unavailable Robotham, Clarissa Attending Unavailable Samuel Keys Attending Unavailable Autumn Gorman Referring Unavailable Lorenzo Cartagena Attending Unavailable Lorenzo Cartagena Referring Unavailable [facility], [place] Primary Care Unavailable SELWYN FARFAN Attending Unavailable SELWYN FARFAN Referring Unavailable ALI, NOAMAN Attending Unavailable ALI, NOAMAN Admitting Unavailable ALI, NOAMAN Attending Unavailable ALI, NOAMAN Referring Unavailable ALI, NOAMAN Referring Unavailable ALI, NOAMAN Attending Unavailable ALI, NOAMAN Referring Unavailable ALI, NOAMAN Attending Unavailable CLARISSA CASAS Referring Unavailable JADE, DR JACKY Skinner Admitting Unavailable JADE, DR JACKY Skinner Attending Unavailable JADE, DR JACKY Skinner Primary Care Unavailable GEE LEON MD Referring Unavailable GEE LEON MD Consulting Unavailable PROVIDER, UNKNOWN Consulting Unavailable VANITA WEAVER DO Admitting Unavailable VANITA WEAVER DO Attending Unavailable VANITA WEAVER DO Primary Care Unavailable GEE LEON MD Consulting Unavailable GEE LENO MD Referring Unavailable PROVIDER, UNKNOWN Consulting Unavailable ALI, NOAMAN Referring Unavailable ALI, NOAMAN Referring Unavailable ALI, NOAMAN Referring Unavailable SELWYN FARFAN Attending Unavailable SELWYN FARFAN Referring Unavailable SELWYN FARFAN Referring Unavailable TEGAN, SAMEH RIZKAL Referring Unavailable TEGAN, SAMEH RIZKAL Referring Unavailable SELWYN FARFAN Referring Unavailable SELWYN FARFAN Attending Unavailable SELWYN FARFAN Attending Unavailable SELWYN FARFAN Referring Unavailable GEE LEON Primary Care Unavailable SELWYN FARFAN Attending Unavailable GEE LEON Primary Care Unavailable GEE LEON Primary Care Unavailable ALI, NOAMAN S Attending Unavailable Johan CASAS Referring Unavailable ALI, NOAMAN S Attending Unavailable ALI, NOAMAN S Referring Unavailable GEE LEON B Primary Care Unavailable ALI, NOAMAN S Admitting Unavailable ALI, NOAMAN S Attending Unavailable GEE LEON Primary Care Unavailable ALI, NOAMAN S Referring Unavailable GEE LEON Primary Care Unavailable ALI, NOAMAN S Referring Unavailable GEE LEON B Primary Care Unavailable ALI, NOAMAN S Referring Unavailable GEE LEON B Primary Care Unavailable ALI, NOAMAN S Attending Unavailable [facility] Referring Unavailable GEE LEON Primary Care Unavailable PROBLEMS PROBLEMS DATE TYPE CONDITION / CODE ATTENDING STATUS SOURCE 02/18/2018 Unknown M25.552 - Pain in Basali, Ayman [facility] left hip / [facility] M25.552(ICD-10) Hospital Repository 02/18/2018 Unknown M25.551 - Pain in Lorenzo Cartagena Active [facility] right hip / Community M25.551(ICD-10) Hospital Repository 01/17/2018 Unknown R10.9 - Unspecified Robotham, Active [facility] abdominal pain / Clarissa Community R10.9(ICD-10) Hospital Repository 02/04/2018 Unknown R07.9 - Chest pain, Ludmila, Samuel Active [facility] unspecified / Community R07.9(ICD-10) Hospital Repository 01/28/2018 Unknown K21.9 - Robotham, Active [facility] Gastro-esophageal [facility] reflux disease Hospital without esophagitis Repository / K21.9(ICD-10) 01/28/2018 Unknown K22.8 - Other Robotham, Active [facility] specified diseases [facility] of esophagus / Hospital K22.8(ICD-10) Repository 01/28/2018 Unknown R10.13 - Epigastric Robotham, Active [facility] pain / Clarissa Community R10.13(ICD-10) Hospital Repository 12/27/2017 Unknown M54.14 - [facility] Active [facility] Radiculopathy, Community thoracic region / Hospital M54.14(ICD-10) Repository 12/25/2017 Unknown R55 - Syncope and Imelda Hernandez Active [facility] collapse / Community R55(ICD-10) Hospital Repository 12/25/2017 Unknown Z95.0 - Presence of Imelda Hernandez Active [facility] cardiac pacemaker / Community Z95.0(ICD-10) Hospital Repository 12/25/2017 Unknown I49.5 - Sick sinus Imelda Hernandez Active [facility] syndrome / Community I49.5(ICD-10) Hospital Repository 12/16/2017 Unknown M54.2 - Cervicalgia [facility] Active [facility] / M54.2(ICD-10) Community Hospital Repository 11/21/2017 Active Syncope and collapse Active [facility] / R55(ICD-10) Clinic Main [place] Repository 10/29/2017 Unknown F11.20 - Opioid [facility] Active [facility] dependence, Community uncomplicated / Hospital F11.20(ICD-10) Repository 10/29/2017 Unknown M54.6 - Pain in [facility] Active [facility] thoracic spine / Community M54.6(ICD-10) Hospital Repository 06/18/2017 Active Benign carcinoid ALI, 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 Clinic Other / D3A.092(ICD-10) [place] Repository 05/30/2017 Active Other acute ALI, NOAMAN Active [facility] appendicitis / Clinic Other K35.89(ICD-10) [place] Repository 05/21/2017 Active Encounter for other NA Active [facility] preprocedural Clinic Other examination / [place] Z01.818(ICD-10) Repository 05/21/2017 Active Unknown / NA Active [facility] UNK(Unknown) Clinic Other [place] Repository 05/24/2017 Unknown K62.5 - Hemorrhage Robotham, Active [facility] of anus and rectum / [facility] K62.5(ICD-10) Hospital Repository 04/04/2017 Active Encounter for NAHEED, Active [facility] preprocedural [facility]YN [facility] Clinic Other cardiovascular [place] examination / Repository Z01.810(ICD-10) 04/04/2017 Active Essential (primary) NAHEED, Active [facility] hypertension / SELWYN E Clinic Other I10(ICD-10) [place] Repository 04/04/2017 Admitting Unknown / NAHEED, Active [facility] diagnosis UNK(Unknown) [facility] Repository 03/21/2017 Unknown R10.812 - Left upper Robotham, Active [facility] quadrant abdominal Clarissa [facility] tenderness / Hospital R10.812(ICD-10) Repository PROCEDURES PROCEDURES No Procedure Records FoundRESULTS RESULTS HIPS B/L MIN 2 Observed: 02/18/2018 Status: F Source: [place] VIEWS W/ PELVIS 2:20 PM [facility] RE[facility]IT[facility] Imaging Services [address] [place] [address] Hips B/L min 2 views w/ Pelvis MR#: [id number] Acct: [id number] Name: RAMSES BRADSHAW Rep #: [id number] : 1965 F 52 From: Rupesh Bradshaw MD PCP: Gee Leon MD Status: REG CLI Study: Hips B/L min 2 views w/ Pelvis Date of Exam: 02/18/18 Exam# [id number] Ordering Dr: Lorenzo Cartagena MD STUDY: X-RAY - BILATERAL HIPS WITHOUT PELVIS REASON FOR EXAM: Female, 52 years old. Bilateral hip pain TECHNIQUE: One view of the pelvis, 2 views of the right hip, and 2 views of the left hip were obtained. COMPARISON: None. FINDINGS: Right Hip: No fracture or dislocation. Mild degenerative change. Left Hip: No fracture or dislocation. Mild degenerative change. RAD/Hips B/L min 2 views w/ Pelvis IMPRESSION: No fracture or dislocation of bilateral hips. Mild degenerative changes bilaterally. Electronically Signed: Rupesh Bradshaw, at 15:20 EST Tel , Service support , CC: Lorenzo Cartagena MD; Gee Leon MD Cell Feed Department Supervisor: Signed UPPER GI/W SMALL Observed: 02/10/2018 Status: F Source: [place] BOWEL 9:11 AM [facility] Imaging Services [address] [place] [address] Upper GI/w Small Bowel MR#: [id number] Acct: [id number] Name: RAMSES BRADSHAW Rep #: [id number] : 1965 F 52 From: Ming Roberts MD PCP: Gee Leon MD Status: REG CLI Study: Upper GI/w Small Bowel Date of Exam: 02/10/18 Exam# [id number] Ordering Dr: Calrissa Casas MD STUDY: AIR-CONTRAST UPPER GI SERIES AND SMALL BOWEL FOLLOW-THROUGH EXAMINATION. REASON FOR EXAM: Female, 52 years old. Vomiting. Recent resection of a gastric neuroendocrine tumor. FLUOROSCOPY TIME (if supplied): (1:55) minutes/seconds. 20 images were obtained. TECHNIQUE: The patient ingested barium. Multiple images of the esophagus stomach and duodenum were obtained. Following this, a small bowel follow-through examination was performed. COMPARISON: None. FINDINGS: A computer aided design technician film was obtained. The gas pattern is unremarkable. Surgical clips are seen in the right upper quadrant. There is evidence of prior laminectomy and fusion in the lower lumbar spine. The esophagus is unremarkable. There is no evidence of esophageal obstruction. No mass lesion is seen. There is no evidence of gastroesophageal reflux. There is evidence of a thickened folds in the fundal portion of the stomach. No mass lesion is seen. A small bowel follow-through examination was then performed. The transit time is normal. No intrinsic or extrinsic small bowel disease is present. RAD/Upper GI/w Small Bowel IMPRESSION: Findings suggestive of gastric mucosal fold thickening in the fundal portion of the stomach. Electronically Signed: Ming Roberts MD at 10:12 EST Tel [phone], Service support , CC: Gee Leon MD; Clarissa Casas MD Cell Feed Department Supervisor: Signed ABDOMEN/PELVIS WITH Observed: 01/17/2018 Status: F Source: [place] CONTRAST 1:25 PM [facility] [facility] Imaging Services [address] [place] [address] Abdomen/Pelvis WITH Contrast MR#: [id number] Acct: [id number] Name: RAMSES BRADSHAW Rep #: [id number] : 1965 F 52 From: Abimael Simon MD PCP: Gee Leon MD Status: REG CLI Study: Abdomen/Pelvis WITH Contrast Date of Exam: 01/17/18 Exam# [id number] Ordering Dr: Clarissa Casas MD STUDY: CT ABDOMEN AND PELVIS WITH CONTRAST REASON FOR EXAM: Female, 52 years old. Neuroendocrine tumor removed from stomach. RADIATION DOSAGE (If Supplied By Facility): CTDIvol = ( 17.41 ) mGy, DLP = ( 1125.50 ) mGycm TECHNIQUE: Transaxial images were obtained from the dome of the diaphragm to the symphysis pubis with oral contrast. 100ML ml of Isovue 300 contrast was administered. Sagittal and coronal images were reconstructed. Individualized dose optimization techniques were used for this CT. COMPARISON: 08/22/2017. FINDINGS: The visualized portions of the lung bases demonstrate mild stranding/scarring in the lingula. The visualized portions of the heart are within normal limits. There again is mild diffuse fatty infiltration of the liver. No focal lesion is seen. There are surgical clips in the gallbladder fossa consistent with a prior cholecystectomy. Normal spleen. Normal pancreas. Normal bilateral adrenal glands. Normal right kidney. Normal left kidney. The stomach is distended. Normal small intestine. There is no evidence of acute diverticulitis. There is fecal retention. There is non-visualization of the appendix. Normal abdominal aorta. Normal inferior vena cava. Normal retroperitoneum. Normal urinary bladder. There is a very small umbilical hernia containing fat. The patient again is status post posterior fusion of L4-L5 and L5-S1 with bilateral pedicle screws and laminectomy. CT/Abdomen/Pelvis WITH Contrast IMPRESSION: 1. Fatty infiltration of the liver. 2. No demonstrated acute changes. Electronically Signed: Abimael Simon MD at 14:37 EST Tel , Service support , CC: Gee Leon MD; Clarissa Casas MD Cell Feed Department Supervisor: Signed 12 LEAD ELECTROCARDIOGRAM Observed: 01/16/2018 Status: F Source: [place] 4:00 PM [facility] [place] [facility] [facility] Cardiovascular Services [address] [place] [address] 12 Lead EKG 01/14/18 0428 MR#: [id number] Acct: [id number] Name: RAMSES BRADSHAW Rep #: [id number] : 1965 52 From: Samuel Keys MD Attending Dr: Autumn Gorman MD Status: DIS JOSUE Ordering Dr: Jcarlos Price MD Date: 01/13/18 Location: [facility] Sex: F C Admitted: 01/13/18 Test Reason : AM Blood Pressure : / mmHG Vent. Rate : 058 BPM Atrial Rate : 058 BPM P-R Int : 196 ms QRS Dur : 086 ms QT Int : 438 ms P-R-T Axes : 046 058 060 degrees QTc Int : 429 ms Sinus bradycardia Otherwise normal ECG When compared with ECG of 13-JAN-2018 23:21, MANUAL COMPARISON REQUIRED, DATA IS UNCONFIRMED Confirmed by SAMUEL KEYS MD ([id number]), videotape editor KIM KIM ([id number]) on 01/16/2018 4:00:47 PM Referred By: SANDRA Confirmed By:SAMUEL KEYS MD 01/16/18 1600 Date Samuel Keys MD CC: Gee Leon MD; Autumn Gorman MD; Jcarlos Price MD Signed 12 LEAD ELECTROCARDIOGRAM Observed: 01/16/2018 Status: F Source: [place] 3:33 PM [facility] [place] [facility] Cardiovascular Services [address] [place] [address] 12 Lead EKG 01/13/181954 MR#: [id number] Acct: [id number] Name: RAMSES BRADSHAW Rep #: [id number] : 1965 52 From: Samuel Keys MD Attending Dr: Autumn Gorman MD Status: DIS JOSUE Ordering Dr: Suki Cruz MD Date: 01/13/18 Location: [facility] Sex: F C Admitted: 01/13/18 Test Reason : CP Blood Pressure : / mmHG Vent. Rate : 067 BPM Atrial Rate : 067 BPM P-R Int : 182 ms QRS Dur : 082 ms QT Int : 412 ms P-R-T Axes : 043 042 050 degrees QTc Int : 435 ms Normal sinus rhythm Low voltage QRS Borderline ECG Confirmed by SAMUEL KEYS MD ([id number]), videotape editor KIM KIM ([id number]) on 01/16/2018 3:33:04 PM Referred By: YAS Confirmed By:SAMUEL KEYS MD 01/16/18 1533 Date Samuel Keys MD CC: Gee Leon MD; Autumn Gorman MD; Suki Cruz MD Signed 12 LEAD ELECTROCARDIOGRAM Observed: 01/16/2018 Status: F Source: [facility] 3:16 PM [facility] Cardiovascular Services [address] [place] [address] 12 Lead EKG 01/14/18 1535 MR#: [id number] Acct: [id number] Name: RAMSES BRADSHAW Rep #: [id number] : 1965 52 From: Samuel Keys MD Attending Dr: Autumn Gorman MD Status: DIS JOSUE Ordering Dr: Jcarlos Price MD Date: 01/14/18 Location: [facility] Sex: F C Admitted: 01/13/18 Test Reason : CP Blood Pressure : / mmHG Vent. Rate : 067 BPM Atrial Rate : 067 BPM P-R Int : 186 ms QRS Dur : 090 ms QT Int : 424 ms P-R-T Axes : 037 050 057 degrees QTc Int : 448 ms Normal sinus rhythm Normal ECG Confirmed by SAMUEL KEYS MD ([id number]), videotape editor KIM KIM ([id number]) on 01/16/2018 3:15:54 PM Referred By: DENIS Confirmed By:SAMUEL KEYS MD 01/16/18 1516 Date Samuel Keys MD CC: Gee Leon MD; Autumn Gorman MD; Jcarlos Price MD Signed EMERGENCY DEPARTMENT Observed: 01/14/2018 Status: F Source: [facility] SUMMARY 4:27 PM [facility] [place] [facility] Medical Records Department [address] [place] [address] Emergency Department Summary 01/14/18 1623 MR#: [id number] Acct: [id number] Name: RAMSES BRADSHAW Rep #: [id number] : 1965 52 From: Virgil Daniels MD PCP: Gee Leon MD Status: REG ER - ER Visit Summary Date of Service: 01/14/18 Chief Complaint: Dizziness, diaphoresis and nausea History of Present Illness: The patient is a 52 F who was discharged from the hospital today after chest pain workup. She states she was walking in the house when she became dizzy. Patient's definition of dizziness and spinning. She denied double vision, blurred vision or loss of vision. She denied further with speech or swallowing. She denied paresthesia, anesthesia motors. She denies clumsiness or falling. She denies black, maroon or bloody stool. 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 She had a partial gastrectomy May 2017. Please read written note for complete detail Physical Examination: Vital signs noted and normal. Head is atraumatic normocephalic. Pupils are equal round reactive. Extraocular muscles are intact. TMs are pearly white with landmarks noted. Nares patent with no drainage. Posterior pharynx without erythema or exudate. Uvula is midline. There is no dysphonia or dysphasia. Trachea is midline. There is no stridor with auscultation of the neck. Heart is regular without murmur, gallop or rub. S1 and S2 are normal. Lungs are clear to auscultation with good movement of air bilaterally. Abdomen soft nontender. Patient is alert and oriented 3. Motor is 5 over 5. Sensory is intact. DTRs are symmetric with no clonus or Babinski sign. Cranial 2 through 12 are intact. Cerebellar testing is normal. Flat/depressed affect. Test Results: Adria-Hallpike maneuver positive Emergency Department Course and Treatment: Ignacia maneuver with resolution of symptoms Treatment Plan: Appropriate home-going instructions Disposition: Discharge to home Impression: Paroxysmal benign positional vertigo This note was generated with [employer] dictation software. It may contain incorrect words, spelling, and punctuation that were not noted in review of the chart prior to signing ED Disposition - Plan for ED Patient: Disposition: Home or Assisted Living Chief Complaint: Syncope Instructions: ED BPV Vertigo Referrals: Michael Leon MD [Primary Care Provider] - As Needed What to do if you have Problems For any increased pain, shortness of breath, bleeding, nausea or vomiting, chest pain, or any unexpected problems, contact your Primary Care Provider. Call [facility] ([phone]) or report to the closest Emergency Room. Call 911 if necessary. 01/14/18 2155 <Electronically signed by Virgil Daniels MD> Date Virgil [place] Signature (If Indicated): Date CC: Gee Leon MD STRESS TEST ECHO W/O Observed: 01/14/2018 Status: F Source: [place] 11:37 AM [facility] [place] [facility] Cardiovascular Services [address] [place] [address] Stress Test Echo w/o Contrast MR#: [id number] Acct: [id number] Name: RAMSES BRADSHAW Rep #: [id number] : 1965 52 From: Samuel Keys MD Primary Care: Gee Leon MD Status: ADM JOSUE Ordering Dr: Jcarlos Price MD Sex: F C Reason For Study: Chest pain Stress Results Maximum Predicted HR: 168 bpm Target HR: 143 bpm % Maximum Predicted HR: 85 % DurationHeart Rate Stage (mm:ss) (bpm) BP Comment Baseline 58 125/71CP 09/17 prior to start of test 10 mcg 3:21 58 117/60 20 mcg 3:13 69 142/67No change in CP 30 mcg 3:16 136 149/77Atropine 0.25mg given @ 0843 40 mcg 2:31 142 135/69CP 12/18 Recovery 83 125/64 Stress Duration: 12:21 mm:ss Maximum Stress HR: 142 bpm Baseline Echocardiogram Findings Stress Echo Wall motion Data Resting WM Intermediate WM Stress WM Stress Results Drug infusion was stopped due to achievement of target heart rate. Normal blood pressure response to exercise. Interpretation Summary Dobutamine stress echocardiogram. Stress protocol: Resting EKG demonstrates sinus bradycardia with a rate of 58 bpm normal intervals are noted. The resting blood pressure 125/71 mmHg. Dobutamine was infused per usual protocol starting at 10 mcg/kg/min and increasing to a peak of 40 mcg/kg/min. 0.25 mg of atropine was administered to attained a maximum heart rate. Patient maintained sinus rhythm throughout the recording. The patient had complained of chest discomfort starting at the beginning of the infusion all the way to the end. The maximum blood pressure was 149/77 mmHg. At rest there were no ST or T wave changes noted suggest ischemia and at peak infusion no ST or T wave changes were noted to suggest ischemia. The maximum heart rate attained was 142 bpm which was 84% of maximum predicted heart rate. Stress echocardiogram. The resting echocardiogram demonstrated ejection fraction of 60% and a peak stress echocardiogram ejection fraction was 70% with no wall motion abnormalities present. It did not appear that clinically significant angina was noted. Conclusion: Normal dobutamine stress echocardiogram Ordering Physician: Jcarlos Price Performed By: Glendy Hughes RDCS 01/14/187 Date Samuel Keys MD CC: Gee Leon MD; Autumn Gorman MD; Jcarlos Price MD Date Dictated: 01/14/18917 Date Transcribed: 01/14/18 113 Cell Feed Department Supervisor: Signed DISCHARGE SUMMARY Observed: 01/14/2018 Status: F Source: [place] 11:28 AM [facility] [place] [facility] Medical Records Department [address] [place] [address] Discharge Summary 01/14/18 1125 MR#: [id number] Acct: [id number] Name: RAMSES BRADSHAW Rep #: [id number] : 1965 52 From: Autumn Gorman MD PCP: Gee Leon MD Status: ADM JOSUE Y Location: PCU [id number] Discharge Date and Diagnosis - Problem List Patient Problems: Active and Suspected Problems (Last Reviewed 12/27/17 @ 10:29 by Evangelina Greene) Chest pain (Acute) Date of Admission: 01/13/18 Date of Discharge: 01/14/18 - Primary Discharge Diagnosis Active and Suspected Problems (Last Reviewed 12/27/17 @ 10:29 by Evangelina Greene) Chest pain (Acute) - Secondary Discharge Diagnosis Chronic Problems (Last Reviewed 12/27/17 @ 10:29 by Evangelina Greene) Skin lesion of breast (Chronic) Right medial breast near sternum Neuroendocrine neoplasm of stomach (Chronic) Syncope and collapse (Chronic) Presence of cardiac pacemaker (Chronic) Sick sinus syndrome (Chronic) History of anxiety disorder (Chronic) Benign essential hypertension (Chronic) Obesity (Chronic) Familial combined hyperlipidemia (Chronic) Status post placement of cardiac pacemaker (Chronic) Tobacco dependence syndrome (Chronic) Chronic pain syndrome (Chronic) Chronic lower back pain (Chronic) Sinus pause (Chronic) Hospital Course and Treatment Imaging Results: 01/14/18 05:55 Stress Test Echo w/o Contrast [ECHO] Routine Operations: None Summary of Care Provided: The patient is a 52 year old F with recent resection of a neuroendocrine tumor involving the stomach who presented with chest pain. Patient was placed on a monitored bed OH was ruled out with serial cardiac enzymes. Patient underwent subsequent evaluation with stress test which is negative for stress-induced ischemia. Patient was discharged home instructed to follow-up with her primary general surgeon as well as PCP for subsequent care. Patient Problems: Active and Suspected Problems (Last Reviewed 12/27/17 @ 10:29 by Evangelina Greene) Chest pain (Acute) - Physical Exam General: Alert HEENT: Atraumatic Neck: Supple Lungs: Diminished Cardiovascular: Regular rate, Regular Rhythm Neurological: Neuro grossly intact Vital Signs Temp Pulse Resp BP Pulse Ox 97.9 F 60 18 109/66 96 01/14/18 10:44 01/14/18 11:04 01/14/18 10:44 01/14/18 10:44 01/14/18 10:44 Oxygen Flow Rate (L/min) 2 Oxygen Delivery Method Room Air Weight: 74.3 kg Body Mass Index (BMI) 29.5 Laboratory Tests Past 24 Hrs WBC 12.9 H RBC 4.46 Hgb 14.0 Hct 41.3 MCV 92.6 MCH 31.4 WBC 10.7 RBC 4.58 Hgb 14.2 WBC RBC Hgb Hct MCV MCH MCHC RDW RDW Differential Discharge Diet: No Restrictions Home Medications: Medications to take at Discharge Duloxetine Hcl [Cymbalta] 120 mg PO DAILY 03/28/15 Levothyroxine [Synthroid] 25 mcg PO DAILY 03/28/15 Lisinopril [Zestril] 20 mg PO BID 03/28/15 Metoprolol Tartrate [Lopressor (beta aislinn)] 25 mg PO BID 03/28/15 Tolterodine Tartrate [Tolterodine Tartrate ER] 4 mg PO DAILY 04/18/16 Lorazepam [Ativan] 1 mg PO BID PRN 08/22/16 Ferrous Sulfate 325 mg PO BID 09/11/16 Zolpidem Tartrate [Ambien] 10 mg PO QHS PRN 09/11/16 Amlodipine [Norvasc] 5 mg PO DAILY 05/17/17 Cholecalciferol (Vitamin D3) [Vitamin D3] 50,000 unit PO TH 10/08/17 buprenorphine 10 mcg/hour weekly transdermal patch 1 patch TRANSDERMAL FR 12/27/17 orphenadrine citrate ER 100 mg tablet,extended release 100 mg PO BID 12/27/17 pantoprazole 40 mg tablet,delayed release 40 mg PO BID 12/27/17 Ondansetron HCl [Zofran] 4 mg PO Q6H PRN PRN 01/02/18 Pregabalin [Lyrica] 50 mg PO BID 01/13/18 Primary Care Physician: Michael Leon MD [Primary Care Provider] - Patient Instructions: ED Chest Pain NonCardiac Medical Necessity - Tobacco Use Smoking Status: Never smoker Meaningful Use Info Meaningful Use Diagnoses (Choose all that apply): None applicable Code Visit OBSV E AND M: 04560 Observation care discharge 01/14/18 1128 <Electronically signed by Autumn Gorman MD> Date Autumn Gorman MD Cosigner Signature (if applicable): Date CC: Gee Leon MD; Autumn Gorman MD Signed DISCHARGE INSTRUCTION Observed: 01/14/2018 Status: F Source: [place] 11:24 AM [facility] [place] [facility] Medical Records Department [address] [place] [address] Instructions for Home/Discharge Instructions 01/14/18 1119 MR#: [id number] Acct: [id number] Name: RAMSES BRADSHAW Rep #: [id number] : 1965 52 From: Autumn Gorman MD PCP: Gee Leon MD Status: ADM JOSUE - Discharge Diagnoses Current Active Problems: Current Active and Chronic Problems (Last Reviewed 12/27/17 @ 10:29 by Evangelina Greene) Chest pain (Acute) You will use the following diet at home:: No restrictions Instructions: ED Chest Pain NonCardiac Allergies/Adverse Reactions: Allergies aspirin Adverse Reaction (Verified 01/02/18 11:54) Nausea/Vom/Diarrhea erythromycin base [Erythromycin Base] Adverse Reaction (Verified 12/27/17 10:31) Vomiting,diarrhea morphine Adverse Reaction (Verified 01/13/18 20:25) Nausea/Vom/Diarrhea NSAIDS (Non-Steroidal Anti-Inflamma Adverse Reaction (Verified 12/27/17 10:31) Vomiting,diarrhea Medications to take at Discharge Duloxetine Hcl [Cymbalta] 120 mg PO DAILY 03/28/15 Levothyroxine [Synthroid] 25 mcg PO DAILY 03/28/15 Lisinopril [Zestril] 20 mg PO BID 03/28/15 Metoprolol Tartrate [Lopressor (beta aislinn)] 25 mg PO BID 03/28/15 Tolterodine Tartrate [Tolterodine Tartrate ER] 4 mg PO DAILY 04/18/16 Lorazepam [Ativan] 1 mg PO BID PRN 08/22/16 Ferrous Sulfate 325 mg PO BID 09/11/16 Zolpidem Tartrate [Ambien] 10 mg PO QHS PRN 09/11/16 Amlodipine [Norvasc] 5 mg PO DAILY 05/17/17 Cholecalciferol (Vitamin D3) [Vitamin D3] 50,000 unit PO TH 10/08/17 buprenorphine 10 mcg/hour weekly transdermal patch 1 patch TRANSDERMAL FR 12/27/17 orphenadrine citrate ER 100 mg tablet,extended release 100 mg PO BID 12/27/17 pantoprazole 40 mg tablet,delayed release 40 mg PO BID 12/27/17 Ondansetron HCl [Zofran] 4 mg PO Q6H PRN PRN 01/02/18 Pregabalin [Lyrica] 50 mg PO BID 01/13/18 Primary Care Physician: Michael Leon MD [Primary Care Provider] - Test Results: Test results from this visit will be discussed in further detail at your follow-up appointment, if applicable. Proposed Discharge Date: 01/14/18 01/14/18 1124 <Electronically signed by Autumn Gorman MD> Date Autumn Gorman MD CC: Gee Leon MD TROPONIN-I Collected: 01/14/2018 Status: F Source: [place] 2:34 AM [facility] [place] Order Comment: 'TROP' Serial specimen #1, #2 or #3: 2 TYPE CODE TESTS RESULT OUT OF RANGE REFERENCE UNITS LAB L501.4010 <0.045 ng/mL Normal < 0.015 TROPONIN-I Result Comment: TROPONIN-I EXPECTED VALUES <0.045 Negative 0.045 - 0.590 Consistent with Cardiac Damage > OR = 0.600 Critical Value Not every elevated troponin is indicative of OH. These values should be used with clinical judgement in examining the patient's clinical picture for diagnosis. To establish a diagnosis of OH versus myocardial injury, there must be a demonstrated rise and/or fall in the troponin values, in addition to ischemic symptoms, EKG changes, new regional wall motion abnormality, and/or angiographical evidence. PLEASE NOTE: REFERENCE RANGES EDITED 17 Performed By: #### L501.4010 #### [facility] [address] [place], [place], [id number] CBC-COMPLETE BLOOD CNT Collected: 01/14/2018 Status: F Source: [place] NO DIFF 2:34 AM [facility] [place] TYPE CODE TESTS RESULT OUT OF RANGE REFERENCE UNITS LAB L100.1000 4.4-11.0 K/mm3 Normal WBC 10.7 LAB L100.1200 4.2-5.4 M/mm3 Normal RBC 4.58 LAB L100.1300 12.0-15.0 g/dl Normal HGB 14.2 LAB L100.1400 37-47 % Normal HCT 43.1 LAB L100.1500 81-99 fL Normal MCV 94.1 LAB L100.1600 27.0-32.0 pg Normal MCH 31.0 LAB L100.1700 32-36 g/gl Normal MCHC 32.9 LAB L100.1810 11.6-14.6 % Normal RDW CV 14.6 LAB L100.1820 35.1-43.9 fl High RDW SD 49.8 LAB L100.1900 150-450 K/mm3 Normal PLT 187 LAB L100.2000 6.2-12.0 fl Normal MPV 9.6 Performed By: #### L100.0500 #### [facility] [address] [place], [place], [id number] PROTHROMBIN TIME W/INR Collected: 01/14/2018 Status: F Source: [place] 2:34 AM [facility] [place] [place] TYPE CODE TESTS RESULT OUT OF RANGE REFERENCE UNITS LAB L300.4150 11.7-14.9 SECONDS Normal PROTIME 11.8 LAB L300.4200 Normal INR 0.9 Performed By: #### L300.3900, L300.4310 #### [facility] [address] [place], [place], [id number] PARTIAL THROMBOPLAST Collected: 01/14/2018 Status: F Source: [place] TIME 2:34 AM [facility] TYPE CODE TESTS RESULT OUT OF RANGE REFERENCE UNITS LAB L300.4310 24.1-36.2 Seconds Normal PTT 28.6 Performed By: #### L300.3900, L300.4310 #### [facility] [address] [place], [address] BASIC METABOLIC Collected: 01/14/2018 Status: F Source: [place] PROFILE (BMP) 2:34 AM [facility] [place] TYPE CODE TESTS RESULT OUT OF RANGE REFERENCE UNITS LAB L501.0100 74-106 mg/dL Normal GLU 93 Result Comment: Please note revised GLUCOSE reference range effective 2017. LAB L501.1000 7-18 mg/dL Normal BUN 14 LAB L501.1100 0.55-1.02 mg/dL Normal CREAT,SERUM 0.80 Result Comment: The validity of the calculated GFR AND GFRAA in patients over 70 years has not been determined. Clinical correlation is essential. LAB L501.1110 >60 mL/min Normal EST GFR 80 Result Comment: Non- GFR Calc LAB L501.1115 >60 mL/min Normal EST GFR - AA 97 Result Comment: GFR Calc LAB L501.1255 ml/min Normal Estimated CRCL 65.06 LAB L501.1300 10-20 RATIO Normal BUN/CRE 17.5 LAB L501.2200 8.5-10 mg/dL Low .1 CA 8.4 LAB L501.5300 136-14 mmol/L Normal 5 NA 145 LAB L501.5600 3.5-5. mmol/L Normal 1 K 4.0 LAB L501.5900 98-107 mmol/L High CL 112 LAB L501.6100 21.0-3 mmol/L Normal 2.0 CO2 25.0 LAB L501.6200 5-15 Normal GAP 8 Performed By: #### L500.2500, L500.4100 #### [facility] [address] [place], [address] LIPID PROFILE Collected: 01/14/2018 Status: F Source: [place] 2:34 AM [facility] [place] TYPE CODE TESTS RESULT OUT OF RANGE REFERENCE UNITS LAB L501.4900 200 mg/dL High CHOL 246 Result Comment: <200 mg/dL Desirable 200-240 mg/dL Borderline >240 mg/dL High Risk LAB L501.5000 mg/dL High TRIG 304 Result Comment: The drugs N-Acetylcysteine and Metamizole may falsely depress this assay. Serum Triglycerides Reference Interval Normal <150 mg/dL Borderline high 150 - 199 mg/dL High 200 - 499 mg/dL Very High > or = 500 mg/dL LAB L501.6400 mg/dL Low HDL 33 Result Comment: The drugs N-Acetylcysteine and Metamizole may falsely depress this assay. Reference Range HDL <40 mg/dL Low HDL Cholesterol HDL >or= 60 mg/dL High HDL Cholesterol LAB L501.6500 0-130 mg/dL High LDL 152 LAB L501.6600 5-40 mg/dL High VLDL 61 Performed By: #### L500.2500, L500.4100 #### [facility] [address] [place], [address] EMERGENCY DEPARTMENT Observed: 01/14/2018 Status: F Source: [place] SUMMARY 2:16 AM [facility] [place] [facility] Medical Records Department [address] [place] [address] Emergency Department Summary 01/13/18 2200 MR#: [id number] Acct: [id number] Name: RAMSES BRADSHAW Rep #: [id number] : 1965 52 From: Suki Cruz MD PCP: Gee Leon MD Status: ADM JOSUE - ER Visit Summary Date of Service: 01/13/18 Chief Complaint: Chest pain History of Present Illness: The patient is a 52 F who reports onset of chest pain around 130 this afternoon. She describes as a pressure or heaviness in the left central portion of her chest with radiation to her left shoulder and left arm. She does report shortness of breath. Past history significant for sick sinus syndrome with pacemaker. She had partial stomach removed last year secondary to a neuroendocrine tumor. She has a history of hypertension. Patient follows with Dr. Farfan of cardiology. Physical Examination: Vital signs are unremarkable. Patient is sitting upright in bed. She appears uncomfortable but no acute distress. Head neck examination normal. Heart is regular rate and rhythm. Lungs sounds clear. Chest wall is nontender. Abdomen is soft nontender. Extremity examination reveals strong pulses throughout with good sensation. Test Results: Portable chest x-ray is unremarkable. EKG is sinus at 67 with no sign of acute ischemia. CBC reveals a white count of 12.9 with normal differential. Chemistry studies normal. Troponin negative. Emergency Department Course and Treatment: Patient states that she cannot take aspirin secondary to her prior stomach surgery. She was given a dose of Dilaudid and Zofran. Patient was discussed with hospitalist will be admitted for cycling of cardiac enzymes and further cardiac evaluation. Treatment Plan: [] Disposition: Admit Impression: Chest pain This note was generated with [employer] software. It may contain incorrect words, spelling, and punctuation that were not noted in review of the chart prior to signing ED Disposition - Plan for ED Patient: Disposition: Acute Care [facility] Chief Complaint: Chest Pain What to do if you have Problems For any increased pain, shortness of breath, bleeding, nausea or vomiting, chest pain, or any unexpected problems, contact your Primary Care Provider. Call [facility] ([phone]) or report to the closest Emergency Room. Call 911 if necessary. 01/14/18 0216 <Electronically signed by Suki Cruz MD> Date Suki Cruz MD Cosigner Signature (If Indicated): Date CC: Gee Leon MD TROPONIN-I Collected: 01/13/2018 Status: F Source: [place] 11:26 PM [facility] Order Comment: 'TROP' Serial specimen #1, #2 or #3: 1 TYPE CODE TESTS RESULT OUT OF RANGE REFERENCE UNITS LAB L501.4010 <0.045 ng/mL Normal < 0.015 TROPONIN-I Result Comment: TROPONIN-I EXPECTED VALUES <0.045 Negative 0.045 - 0.590 Consistent with Cardiac Damage > OR = 0.600 Critical Value Not every elevated troponin is indicative of [place]. These values should be used with clinical judgement in examining the patient's clinical picture for diagnosis. To establish a diagnosis of OH versus myocardial injury, there must be a demonstrated rise and/or fall in the troponin values, in addition to ischemic symptoms, EKG changes, new regional wall motion abnormality, and/or angiographical evidence. PLEASE NOTE: REFERENCE RANGES EDITED 17 Performed By: #### L501.4010 #### [facility] [place], [address] HISTORY AND PHYSICAL Observed: 01/13/2018 Status: F Source: [place] EXAM 10:23 PM [facility] [place] Medical Records Department [address] [place] [address] History and Physical 01/13/185 MR#: [id number] Acct: [id number] Name: RAMSES BRADSHAW Rep #: [id number] : 1965 52 From: Jcarlos Price MD PCP: Gee Leon MD Status: REG ER Y Location: ED Problem List (1) Chest pain Status: Acute (2) Presence of cardiac pacemaker Status: Chronic (3) Sick sinus syndrome Status: Chronic (4) History of anxiety disorder Status: Chronic (5) Benign essential hypertension Status: Chronic (6) Obesity Status: Chronic (7) Familial combined hyperlipidemia Status: Chronic (8) Chronic pain syndrome Status: Chronic History of Present Illness Date of Admission: 01/13/18 Chief Complaint: chest pain The patient is a 52 year old female patient who presents to the ER with chest pain. Onset began at 1:00pm today and occurred while at rest. It has continued since. She describes it as sharp and substernal and non radiating. She has a history of cardiac pacemaker placed several years ago for sick sinus syndrome. Recently she had a partial resection of her stomach for a neuroendocrine tumor. She is to have a CT scan on Saturday for this as an outpatient. She had a normal stress test in 2016. She will be admitted for observation and cardiac rule out. Past Medical History Past Medical History (Chronic Problems): Chronic Problems (Last Reviewed 12/27/17 @ 10:29 by Evangelina Greene) Skin lesion of breast (Chronic) Right medial breast near sternum Presence of cardiac pacemaker (Chronic) Sick sinus syndrome (Chronic) History of anxiety disorder (Chronic) Benign essential hypertension (Chronic) Obesity (Chronic) Familial combined hyperlipidemia (Chronic) Status post placement of cardiac pacemaker (Chronic) Tobacco dependence syndrome (Chronic) Chronic pain syndrome (Chronic) Chronic lower back pain (Chronic) Sinus pause (Chronic) Medical History: Medical History (Last Reviewed 12/27/17 @ 10:29 by Evangelina Greene) Neuroendocrine neoplasm of stomach (Acute) D3A.8 History of anxiety disorder (Chronic) Z86.59 Benign essential hypertension (Chronic) I10 Obesity (Chronic) E66.9 Familial combined hyperlipidemia (Chronic) E78.4 Tobacco dependence syndrome (Chronic) F17.200 Chronic pain syndrome (Chronic) Chest tightness (Acute) R07.89 Chronic lower back pain (Chronic) M54.5, G89.29 Sinus pause (Chronic) I45.5 h/o back surgery Allergies aspirin Adverse Reaction (Verified 01/02/18 11:54) Nausea/Vom/Diarrhea erythromycin base [Erythromycin Base] Adverse Reaction (Verified 12/27/17 10:31) Vomiting,diarrhea morphine Adverse Reaction (Verified 01/13/18 20:25) Nausea/Vom/Diarrhea NSAIDS (Non-Steroidal Anti-Inflamma Adverse Reaction (Verified 12/27/17 10:31) Vomiting,diarrhea Home Medications: Ambulatory Orders Medication Instructions Recorded Duloxetine Hcl [Cymbalta] 120 mg PO DAILY 03/28/15 Levothyroxine [Synthroid] 25 mcg PO DAILY 03/28/15 Surgical History: Surgical History (Last Updated 12/27/17 @ 10:29 by Evangelina Greene) Status post placement of cardiac pacemaker (Chronic) Z95.0 S/P appendectomy Z90.49 Open S/P hysterectomy Z90.710 S/P laparoscopy Z98.890 x 12 for endometriosis S/P laparotomy Z98.8[address] Pfannenstiel incision for endometriosis history excision neuroendocrine tumor Surgical History: pacemaker implantation, - - elbow surgery, hysterectemy,appendectemy, sever lap surgeries on abd, removed masses in her neck Smoking Status: Never smoker - *Family History Maternal Family History: Family History (Last Reviewed 12/27/17 @ 10:29 by Evangelina Greene) Daughter Asthma Father Heart disease Hypertension CAD (coronary artery disease) History Items: No pertinent history Review of Systems Constitutional: Denies: Chills, Fever, Weight Change HEENT: Denies: Head Aches, Sinus Congestion, Sinus Drainage Cardiovascular: Reports: Chest Pain, Chest Pressure, Chest Tightness. Denies: Palpitations Respiratory: Denies: Cough, Shortness of breath at rest, Sputum production Gastrointestinal: Denies: Abdominal Pain, Nausea, Vomiting Genitourinary: Denies: Dysuria Musculoskeletal: Denies: Joint Pain, Joint Tenderness Skin: Denies: Rash, Wounds Neurological: Denies: Numbness, Tingling, Focal weakness Psychiatric: Denies: Anxiety, Depression, Homicidal Ideations, Suicidal Ideations Hematologic/ Lymphatic: Denies: Easy Bruising, Easy Bleeding VTE Information - Inpt Only VTE Present on Admission: No VTE Mechan Device Prophylaxis: None VTE Pharm Prophylaxis ordered?: Yes Patient Problems: Active and Suspected Problems (Last Reviewed 12/27/17 @ 10:29 by Evangelina Greene) Chest pain (Acute) - Physical Exam General: Alert, Oriented x3, Cooperative HEENT: Atraumatic, Normocephalic Neck: Supple Lungs: Clear to auscultation, Normal air movement, No rhonchi, No wheeze, No rales Cardiovascular: Regular rate, Regular Rhythm, Normal S1, Normal S2, No murmurs Abdomen: Bowel Sounds Present, Soft, Non Tender Extremities: No edema, Capillary Refill Less than 3 Seconds Skin: No rashes Musculoskeletal: No Tenderness to Palpation of Joints or Extremities Neurological: Neuro grossly intact Psych/Mental Status: Normal Affect, Appropriate Vital Signs Temp Pulse Resp BP Pulse Ox 97.9 F 59 L 16 114/54 L 97 01/13/18 19:44 01/13/18 21:29 01/13/18 21:29 01/13/18 21:29 01/13/18 21:29 Oxygen Flow Rate (L/min) 2 Oxygen Delivery Method Room Air Weight: 167 lb 12.348 oz Body Mass Index (BMI) 30.7 Laboratory Tests Past 24 Hrs Assessment/Plan All Active Problems (Last Reviewed 12/27/17 @ 10:29 by Evangelina Greene) Chest pain (Acute) Neuroendocrine neoplasm of stomach (Acute) Syncope and collapse (Acute) Chest tightness (Acute) Accidental drug overdose (Resolved) Syncope (Resolved 12/16/12) Chronic Problems (Last Reviewed 12/27/17 @ 10:29 by Evangelina Greene) Skin lesion of breast (Chronic) Right medial breast near sternum Presence of cardiac pacemaker (Chronic) Sick sinus syndrome (Chronic) History of anxiety disorder (Chronic) Benign essential hypertension (Chronic) Obesity (Chronic) Familial combined hyperlipidemia (Chronic) Status post placement of cardiac pacemaker (Chronic) Tobacco dependence syndrome (Chronic) Chronic pain syndrome (Chronic) Chronic lower back pain (Chronic) Sinus pause (Chronic) Plan - admit for observation to PCU - avoid NSAIDs due to stomach surgery - morphine 2mg IV q2hrs prn pain, oxygen and nitro prn - Stress test in am - cycle cardiac markers per routine - continue routine home medications - LMWH for DVT prophylaxis Code Visit OBSV E AND M: [id number] Initial observation care L2 01/13/18 2223 <Electronically signed by Jcarlos Price MD> Date Jcarlos Price MD [facility] Signature: Date (if applicable) CC: Gee Leon MD; Jcarlos Price MD Signed CHEST 1 VIEW Observed: 01/13/2018 Status: F Source: [place] (PORTABLE) 8:07 PM [facility] Imaging Services [address] [place] [address] [place] [address] Chest 1 View (Portable) MR#: [id number] Acct: [id number] Name: RAMSES BRADHSAW Rep #: [id number] : 1965 F 52 From: Jerry Wilkins DO PCP: Gee Leon MD Status: REG ER Study: Chest 1 View (Portable) Date of Exam: 01/13/18 Exam# [id number] Ordering Dr: Suki Cruz MD STUDY: X-RAY CHEST REASON FOR EXAM: Female, 52 years old. Chest pain TECHNIQUE: Single frontal view COMPARISON: August 22, 2016 FINDINGS: Stable left-sided pacemaker. The lungs are clear and expanded. There is no demonstrated pleural abnormality. Normal size heart. Normal mediastinum and archana. Normal visualized pulmonary arteries. Normal visualized aortic arch and descending thoracic aorta. Mild degenerative changes of the thoracic spine. Normal visualized ribs, clavicles, and shoulders. There is no demonstrated abnormality of the visualized soft tissue structures of the upper abdomen. RAD/Chest 1 View (Portable) IMPRESSION: Normal x-ray examination of the chest. Electronically Signed: Jerry DO Franky at 20:46 EST Tel [phone], Service support , CC: Gee Leon MD; Suki Cruz MD Cell Feed Department Supervisor: Signed PROTHROMBIN TIME W/INR Collected: 01/13/2018 Status: F Source: [place] 8:00 PM [facility] TYPE CODE TESTS RESULT OUT OF RANGE REFERENCE UNITS LAB L300.4150 11.7-14.9 SECONDS Normal PROTIME 11.9 LAB L300.4200 Normal INR 0.9 Performed By: #### L300.3900 #### [facility] [address] [place], [place], [address] CBC W/DIFF, AUTOMATED Collected: 01/13/2018 Status: F Source: [place] 8:00 PM [facility] TYPE CODE TESTS RESULT OUT OF RANGE REFERENCE UNITS LAB L100.1000 4.4-11.0 K/mm3 High WBC 12.9 LAB L100.1200 4.2-5.4 M/mm3 Normal RBC 4.46 LAB L100.1300 12.0-15.0 g/dl Normal HGB 14.0 LAB L100.1400 37-47 % Normal HCT 41.3 LAB L100.1500 81-99 fL Normal MCV 92.6 LAB L100.1600 27.0-32.0 pg Normal MCH 31.4 LAB L100.1700 32-36 g/gl Normal MCHC 33.9 LAB L100.1810 11.6-14.6 % Normal RDW CV 14.5 LAB L100.1820 35.1-43.9 fl High RDW SD 47.8 LAB L100.1900 150-450 K/mm3 Normal PLT 222 LAB L100.2000 6.2-12.0 fl Normal MPV 9.5 LAB L100.2100 47-70 % Normal NEUT% 56.4 LAB L100.2200 19-41 % Normal LY% 34.5 LAB L100.2300 0-10 % Normal MONO% 6.7 LAB L100.2400 0-5 % Normal EO% 1.5 LAB L100.2500 0-1 % Normal BASO% 0.2 LAB L100.2550 0.0-0.9 % Normal IM GRAN % 0.700 Result Comment: IG% - Immature Granulocytes (promyelocytes, myelocytes and metamyelocytes) > 1% indicates that a LEFT SHIFT is Present. LAB L100.2620 2.0-7.7 X10 3/uL Normal Absolute Neut 7.3 LAB L100.2720 0.83-4.51 X10 3/ul Normal Absolute Lymph 4.46 Performed By: #### L100.0100, L500.2500, L501.4010 #### [facility] [address] [place], [address] BASIC METABOLIC Collected: 01/13/2018 Status: F Source: [place] PROFILE ([facility]) 8:00 PM [facility] [place] TYPE CODE TESTS RESULT OUT OF RANGE REFERENCE UNITS LAB L501.0100 74-106 mg/dL Normal GLU 95 Result Comment: Please note revised GLUCOSE reference range effective 2017. LAB L501.1000 7-18 mg/dL Normal BUN 16 LAB L501.1100 0.55-1.02 mg/dL Normal CREAT,SERUM 0.90 Result Comment: The validity of the calculated GFR AND GFRAA in patients over 70 years has not been determined. Clinical correlation is essential. LAB L501.1110 >60 mL/min Normal EST GFR 69 Result Comment: Non- GFR Calc LAB L501.1115 >60 mL/min Normal EST GFR - AA 84 Result Comment: GFR Calc LAB L501.1255 ml/min Normal Estimated CRCL 57.83 LAB L501.1300 10-20 RATIO Normal BUN/CRE 17.7 LAB L501.2200 8.5-10 mg/dL Low .1 CA 8.4 LAB L501.5300 136-14 mmol/L Normal 5 NA 142 LAB L501.5600 3.5-5. mmol/L Normal 1 K 4.0 LAB L501.5900 98-107 mmol/L High CL 112 LAB L501.6100 21.0-3 mmol/L Normal 2.0 CO2 24.0 LAB L501.6200 5-15 Normal GAP 6 Performed By: #### L100.0100, L500.2500, L501.4010 #### [facility] [address] [place], [address] TROPONIN-I Collected: 01/13/2018 Status: F Source: [place] 8:00 PM [facility] TYPE CODE TESTS RESULT OUT OF RANGE REFERENCE UNITS LAB L501.4010 <0.045 ng/mL Normal < 0.015 TROPONIN-I Result Comment: TROPONIN-I EXPECTED VALUES <0.045 Negative 0.045 - 0.590 Consistent with Cardiac Damage > OR = 0.600 Critical Value Not every elevated troponin is indicative of OH. These values should be used with clinical judgement in examining the patient's clinical picture for diagnosis. To establish a diagnosis of OH versus myocardial injury, there must be a demonstrated rise and/or fall in the troponin values, in addition to ischemic symptoms, EKG changes, new regional wall motion abnormality, and/or angiographical evidence. PLEASE NOTE: REFERENCE RANGES EDITED 17 Performed By: #### L100.0100, L500.2500, L501.4010 #### [facility] [address] [place], [address] PROGRESS Observed: 01/08/2018 Status: COMPLETED Source: [place] 3:35 PM [facility] REPOSITORY HNO ID: [id number] Author: Lorie Fernandez Service: (none) Author Type: (none) Type: Progress Notes Filed: 01/08/2018 3:35 PM Note Text: Radiology Service Progress Note PATIENT NAME: Ramses Bradshaw DATE OF SERVICE: January 08, 2018 TIME: 3:35 PM PATIENT IDENTITY VERIFICATION COMPLETED USING TWO (2) METHODS: Patient confirmed name verbally and Date of . PATIENT GENDER DATA: Female. status: : No status: NO. PATIENT RELEVANT IMPLANT DATA REVIEWED: Not Applicable RADIOLOGY DEPARTMENT: CT; Exam(s) Completed: c-spine w/o PERIPHERAL IV DATA: Not applicable SIGNED BY: Lorie Fernandez January 08, 2018 3:[address] CERVICAL SPINE WO Observed: 01/08/2018 Status: F Source: [place] CONTRAST 3:32 PM [facility] REPOSITORY * * *Final Report* * * DATE OF EXAM: Jan 08 2018 3:32PM [facility] 0273 - CT CERVICAL SPINE WO CONTRAST / PROCEDURE REASON: neck * * * * Physician Interpretation * * * * EXAMINATION: CT CERVICAL SPINE WO CONTRAST CLINICAL HISTORY: Cervical spine pain. TECHNIQUE: CT of the cervical spine without IV contrast. Spiral, high resolution axial images were obtained from the skull base to the cervicothoracic junction with sagittal and coronal planar reconstructions. MQ: [id number] CT Dose-Length Product (DLP): 365 mGy*cm CT Dose Reduction Employed: Automated exposure control(AEC) and iterative recon COMPARISON: None. RESULT: Counting reference: Craniocervical junction. Anatomic Variants: None. Alignment: Cervical dextrocurvature and upper thoracic levocurvature.. Craniocervical junction: Craniocervical junction is normal. Osseous structures/fracture: No evidence of a lytic or blastic process in the visualized spine. No evidence of acute or chronic fracture. Cervical soft tissues: The paraspinal soft tissues are within normal limits. Degenerative changes: C2-C3: Mild disc degeneration. Canal and foramina are patent. C3-C4: Mild disc osteophyte complex. Canal and foramina are patent. C4-C5: Canal and foramina are patent. C5-C6: Shallow central protrusion partially effacing the ventral thecal sac, contributing to mild canal stenosis. No significant neural foraminal narrowing. C6-C7: Central disc protrusion effacing the ventral thecal sac and contributing to mild-moderate canal stenosis. No significant neural foraminal narrowing. C7-T1: Canal and foramina are patent. IMPRESSION: No acute fracture or listhesis in the cervical spine. Degenerative changes in the cervical spine greater at C6-7 contributing to mild to moderate spinal canal stenosis. Anatomic Variant: None. Assume 7 cervical vertebrae with counting from the craniocervical junction. Cell Feed Department Supervisor: PSCKen Transcribe Date/Time: Jan 08 2018 3:43P Dictated by : GEE DRUMMOND MD This examination was interpreted and the report reviewed and electronically signed by: GEE DRUMMOND MD on Jan 08 2018 3:47PM EST OPERATIVE REPORT - Observed: 01/06/2018 Status: F Source: [place] ENDOS[facility] 11:45 AM [facility] Medical Records Department [address] [place] [address] Operative Report - Endoscopy MR#: [id number] Acct: [id number] Name: RAMSES BRADSHAW Rep #: [id number] : 1965 52 From: Clarissa Casas MD PCP: Gee Leon MD Status: REG [facility] Patient Name: Ramses Bradshaw Procedure Date: 01/06/2018 11:06 AM Date of : 1965 Age: 52 Procedure: Upper GI endoscopy Indications: Gastro-esophageal reflux disease, 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 Procedure: Pre-Anesthesia Assessment: - Prior to the procedure, a History and Physical was performed, and patient medications and allergies were reviewed. The patient's tolerance of previous anesthesia was also reviewed. The risks and benefits of the procedure and the sedation options and risks were discussed with the patient. All questions were answered, and informed consent was obtained. Prior Anticoagulants: The patient has taken no previous anticoagulant or antiplatelet agents. ASA Grade Assessment: II - A patient with mild systemic disease. After reviewing the risks and benefits, the patient was deemed in satisfactory condition to undergo the procedure. After obtaining informed consent, the endoscope was passed under direct vision. Throughout the procedure, the patient's blood pressure, pulse, and oxygen saturations were monitored continuously. The gastroscope was introduced through the mouth, and advanced to the second part of duodenum. The upper GI endoscopy was accomplished without difficulty. The patient tolerated the procedure well. Scope In: 11:18:04 AM Scope Out: 11:32:24 AM Total Procedure Duration Time 0 hours 14 minutes 20 seconds Findings: No gross lesions were noted in the duodenal bulb, in the first portion of the duodenum and in the second portion of the duodenum. No gross lesions were noted in the entire examined stomach. Biopsies were taken with a cold forceps for histology/H.pylori at antrum. The Z-line was found 35 cm from the incisors. Biopsies were taken with a cold forceps for histology. Mild mucosal changes were found at the gastroesophageal junction-biopsied. The exam was otherwise without abnormality. Impression: - No gross lesions in the duodenal bulb, in the first portion of the duodenum and in the second portion of the duodenum. - No gross lesions in the stomach. Biopsied. - Z-line, 35 cm from the incisors. Biopsied. - Mucosal changes in the esophagus. - The examination was otherwise normal. Recommendation: - Discharge patient to home. - Continue present medications. - Await pathology results. Will also d/w Dr. 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 All rights reserved. The codes documented in this report are preliminary and upon glassware maker demonstrator review may be revised to meet current compliance requirements. MD Clarissa Gardner MD 01/06/2018 11:44:58 AM This report has been signed electronically. Number of Addenda: 0 Note Initiated On: 01/06/2018 11:06 AM 01/06/18 1145 Date Clarissa Casas MD Cosigner Signature: Date (if indicated) CC: Gee Leon MD; Clarissa Casas MD Date Dictated: 01/06/18 1106 Date Transcribed: Cell Feed Department Supervisor: TR Signed EGD ([facility] S[facility]) Observed: 01/06/2018 Status: F Source: [place] 11:00 AM [facility] [place] Patient: RAMSES BRADSHAW : 1965 (52/F) Acct Num: [id number] Phys: Damon GAUTAM,Clarissa Unit Num: [id number] Loc: EN Specimen: [id number] Received: 01/06/18 - 1157 Spec Type: EGD BIOPSY TISSUES 1 TISSUES: A. Gastric mucous membrane B. Gastric mucous membrane COMMENT A. The results of immunohistochemistry for Helicobacter pylori will be reported separately ([id number]). B. Alcian blue/PAS stain with matched control is used in the evaluation of the specimen. Please make reference to previous specimen ([id number]), gastric fundus, biopsy with diagnosis of neuroendocrine tumor. GROSS DESCRIPTION A - Received in fixative is one container labeled with the patient's name and designated biopsy gastric antrum. The specimen consists of one irregular fragment of light aburto soft tissue that measures 0.5 x 0.2 x 0.1 cm. The specimen is totally submitted in one cassette. B - Received in fixative is one container labeled with the patient's name and designated biopsy GE junction. The specimen consists of two irregular fragments of light aburto soft tissue that in aggregate measure 0.5 x 0.2 x 0.1 cm. The specimen is totally submitted in one cassette. / YOUSIF:marty 01/06/18 TC:3 CPT: 12446 x2, 31724 HEADER OPERATION: EGD ([facility]) PRE-OP DIAGNOSIS: Neuroendocrine tumor of stomach, nausea, GERD, epigastric abdominal pain TISSUE SUBMITTED: A - Biopsy gastric antrum, H. pylori and path, B - Biopsy GE junction MICROSCOPIC DESCRIPTION Slides are reviewed. A. The specimen shows fragments of gastric mucosa with chronic inflammatory cell infiltrates in the lamina propria consisting of lymphocytes and plasma cells, consistent with mild chronic gastritis. MICROSCOPIC DIAGNOSIS A. Gastric antrum, biopsy: Mild gastritis. B. GE junction, biopsy: Fragments of gastroesophageal mucosa with focal intestinal metaplasia (goblet cell metaplasia), consistent with Martel's esophagus. Negative for dysplasia. Chronic inflammation. See comment. YOUSIF:marty 01/07/18 Signed Kam Wiley 01/07/18 <signature on file> Performed By: #### PEGD #### [facility] [address] [place], [address] IMMUNOHISTOCHEMISTRY Observed: 01/06/2018 Status: F Source: [place] 11:00 AM [facility] [place] Patient: RAMSES BRADSHAW : 1965 (52/F) Acct Num: [id number] Phys: Damon GAUTAM,Clarissa Unit Num: [id number] Loc: EN Specimen: [id number] Received: 01/07/18946 Spec Type: IMMUNO TISSUES 1 TISSUES: B. Stomach, NOS SPECIMEN INFORMATION: Tissue Source: A - Gastric antrum Clinical Info: Neuroendocrine tumor of stomach, nausea, GERD, epigastric abdominal pain Specimen Number: [id number] CPT code: 93211 METHODOLOGY: Deparaffinized sections of prefer/formalin-fixed tissue or PAP/DQ stained slides are incubated with monoclonal/polyclonal antibodies/oligonucleotide probes. Localization is made via biotin free immunoperoxidase method. Appropriate controls are performed and reacted as expected. Results on target cell population are indicated in the following table: RESULTS: ANTIBODY / CLONE RESULT Block A H Pylori (polyclonal) negative These tests were developed and their performance characteristics determined by [facility]. They may not have been cleared or approved by the U.S. Food and Drug Administration. The FDA has determined that such clearance or approval is not necessary. INTERPRETATION: A. Gastric antrum: Negative for Helicobacter pylori organisms. SJ:marty 01/07/18 PHYSICIAN AND INSTITUTION [place] [address] Signed Kam Wiley 01/07/18 <signature on file> Performed By: #### PIMM #### [facility] [address] [place] [address], [id number] SURGERY VISIT REPORT Observed: 12/27/2017 Status: F Source: [place] 12:57 PM [facility] [address] [place] [address] [address] [place] [address] OFFICE VISIT Date of Service: 12/27/17 MR#: [id number] Acct: [id number] Name: RAMSES BRADSHAW Rep #: [id number] : 1965 Provider: Clarissa Casas MD Age/Sex: 52/F Location: [facility] Status: Signed Intake Vital Signs12/27/17 Height 5 ft 3 in 12/27/17 Weight: 159 lb Intake Visit Reasons: needs egd 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 Required: No Is patient in pain?: No Allergies aspirin Adverse Reaction (Verified 12/27/17 10:31) Other erythromycin base [Erythromycin Base] Adverse Reaction (Verified 12/27/17 10:31) Vomiting,diarrhea NSAIDS (Non-Steroidal Anti-Inflamma Adverse Reaction (Verified 12/27/17 10:31) Vomiting,diarrhea Medications Duloxetine Hcl [Cymbalta] 60 mg PO DAILY 03/28/15 [History Confirmed 12/27/17] Levothyroxine [Synthroid] 25 mcg PO DAILY 03/28/15 [History Confirmed 12/27/17] Lisinopril [Zestril] 40 mg PO BID 03/28/15 [History Confirmed 12/27/17] Metoprolol Tartrate [Lopressor (beta aislinn)] 25 mg PO BID 03/28/15 [History Confirmed 12/27/17] Tolterodine Tartrate [Tolterodine Tartrate ER] 4 mg PO DAILY 04/18/16 [History Confirmed 12/27/17] Lorazepam [Ativan] 1 mg PO BID PRN 08/22/16 [History Confirmed 12/27/17] Ferrous Sulfate 325 mg PO BID 09/11/16 [History Confirmed 12/27/17] Zolpidem Tartrate [Ambien] 10 mg PO QHS PRN 09/11/16 [History Confirmed 12/27/17] Amlodipine [Norvasc] 5 mg PO DAILY 05/17/17 [History Confirmed 12/27/17] Pantoprazole Sodium [Protonix] 40 mg PO BID 08/22/17 [History Confirmed 12/27/17] Cholecalciferol (Vitamin D3) [Vitamin D] 50,000 unit PO QWEEK 10/08/17 [History Confirmed 12/27/17] buprenorphine 10 mcg/hour weekly transdermal patch 1 patch TRANSDERMAL Q7D 12/27/17 [History Confirmed 12/27/17] gabapentin 600 mg tablet 600 mg PO TID 12/27/17 [History Confirmed 12/27/17] orphenadrine citrate ER 100 mg tablet,extended release 100 mg PO BID 12/27/17 [History Confirmed 12/27/17] pantoprazole 40 mg tablet,delayed release 40 mg PO BID 12/27/17 [History Confirmed 12/27/17] [facility] Medical History Neuroendocrine neoplasm of stomach (Acute) History of anxiety disorder (Chronic) Benign essential hypertension (Chronic) Obesity (Chronic) Familial combined hyperlipidemia (Chronic) Tobacco dependence syndrome (Chronic) Chronic pain syndrome (Chronic) Chest tightness (Acute) Chronic lower back pain (Chronic) Sinus pause (Chronic) h/o back surgery (Acute) Surgical History Status post placement of cardiac pacemaker (Chronic) S/P appendectomy (Acute) S/P hysterectomy (Acute) S/P laparoscopy (Acute) S/P laparotomy (Acute) history excision neuroendocrine tumor (Acute) Family History Daughter Asthma Father Heart disease Hypertension CAD (coronary artery disease) Social History Smoking Status: Former smoker alcohol intake: never HPI HPI HPI: RAMSES BRADSHAW, is a 52 F who presents to the office today for GERD/N/epigastric pain/night sweats x 2 weeks. Pt underwent lap cholecystectomy and wedge gastric resection for neuroendocrine tumor of the stomach-2cm by Dr. Hernández at [facility]. Pt had nausea/GERD/epigastric pain prior to the surgery in May 2017, but it has been resolved/controlled with protonix 40 mg PO BID until 2 weeks ago. Pt left medial breast incision well healed. ROS Gastro Gastrointestinal: Yes abdominal pain, Yes nausea or vomiting Exam Const General: cooperative, comfortable, no acute distress GI Inspection: non-distended Palpation: soft, no guarding, tender (epigastric>LUQ AND RUQ) Assessment AND Plan Problems 1. Neuroendocrine neoplasm of stomach D3A.8 2. Epigastric abdominal pain R10.13 3. Nausea AND vomiting R11.2 4. Gastroesophageal reflux disease K21.9 Plan I have discussed the above with the patient. I have offered the patient EGD for evaluation, may also need further imaging studies depending on EGD results. I have explained the risks/benefits of the procedure and described the procedure. I have discussed the risks with the patient, including but not limited to: infection, bleeding, perforation of the GI tract requiring emergency surgery, inability to complete the procedure, injury to any internal organs, complications of anesthesia, etc. - the patient understands and agrees to proceed. I have answered all the patient's questions to the patient's satisfaction and the patient has no further questions. Also d/w Dr. Hernández. Plan Detail Follow Up will schedule EGD Coding Level of Care Code Off vis,est,level 3 Diagnoses Neuroendocrine neoplasm of stomach D3A.8 Epigastric abdominal pain R10.13 Nausea AND vomiting R11.2 Gastroesophageal reflux disease K21.9 12/27/17 1257 <Electronically signed by Clarissa Casas MD> Date Clarissa Casas MD Cosigner Signature: Date (if applicable) CC: Gee Leon MD PACEMAKER CHECK Observed: 12/24/2017 Status: F Source: [place] 1:54 PM [facility] [address] [place] [address] Pacemaker Check Date of Service: 12/24/17 1352 MR#: [id number] Acct: [id number] Name: RAMSES BRADSHAW Anne Rep #: [id number] : 1965 From: Imelda Hernandez Age/Sex: 52/F [place] [facility] [place]: Signed Billing Codes PM Device Codes: PM Dev Prog Eval, Dual 12/24/17 1352 <Electronically signed by Imelda Hernandez > Date Imelda Hernandez 12/24/17 1354<Electronically signed by Samuel Keys MD> [place] Signature: Date (if applicable) Samuel Keys MD CC: CERV SPINE 4 OR 5 Observed: 12/16/2017 Status: F Source: [place] VIEWS 5:04 PM [facility] Imaging Services [address] [place] [address] Cerv Spine 4 or 5 Views MR#: [id number] Acct: [id number] Name: RAMSES BRADSHAW Rep #: [id number] : 1965 F 52 From: Marco Antonio Shah MD PCP: Gee Leon MD Status: REG CLI Study: Cerv Spine 4 or 5 Views Date of Exam: 12/16/17 Exam# [id number] Ordering Dr: Ger Javed MD STUDY: X-RAY - CERVICAL SPINE REASON FOR EXAM: Female, 52 years old. Chronic neck pain TECHNIQUE: 5 view(s) of the cervical spine were obtained. COMPARISON: None FINDINGS: Normal anterior atlantoaxial articulation. Normal odontoid process. Normal cervical lordosis. Normal vertebral bodies and endplates. Normal disc space heights. Normal visualized intervertebral neuroforamina. The soft tissue structures are unremarkable. RAD/Cerv Spine 4 or 5 Views IMPRESSION: Normal x-ray examination of the visualized cervical spine. No fracture. No disc disease. Electronically Signed: Marco Antonio Shah MD at 4:21 EDT Tel , Service support , CC: Gee Leon MD; Ger Javed M.D. Cell Feed Department Supervisor: Signed RE-EVALUATION - PT (1) Observed: 12/12/2017 Status: F Source: [place] 9:46 AM [facility] [place] [facility] [address] [place] [address]. [address] [place] [address] Fax REEVALUATION / MEDICARE RECERTIFICATION PHYSICAL THERAPY MR#: [id number] Acct: [id number] Name: RAMSES BRADSHAW Rep #: [id number] : 1965 52 From: Amarilis Reed PT, Cert. T Referring Dr.: Ger Javed M.D. Status: REG RCR Insurance: [employer] MEDICARE PPO MEDICAID Ger Javed MD, It has been my pleasure to treat RAMSES BRADSHAW over the last 9 visits for THORACIC RADICULOPATHY. Please see the progress note below for an update on the physical therapy plan of care! Subjective: PATIENT REPORTS SHE FEELS STRONGER. SHE REPORTS HAS A HOME EX PROGRAM THAT SHE CAN DO NOW AND MOST OF THE TIME IT HELPS. PATIENT REPORTS SHE HAD TRIGGER POINT INJECTIONS FROM DR. JAVED SATURDAY AND THEY HELPED. PATIENT REPORTS DR. JAVED TOLD HER TO CONTINUE PHYSICAL THERAPY BUT SHE DOES NOT KNOW IF HE MEANT HERE OR AT HOME WITH HER HOME PROGRAM. SHE REPORTS IT IS HARD ON HER COMING 3 TIMES A WEEK BECAUSE IT WEARS HER OUT. PATIENT REPORTS DR. JAVED MENTIONED CAMERON BUT SHE IS NOT SCHEDULED FOR ANY. PATIENT REPORTS HER NEXT APPOINTMENT WITH DR. JAVED IS 12/20/17 AND HE HAS BEEN SEEING HER EVERY TWO WEEKS. PATIENT REPORTS RIGHT UE FEELS TINGLY AND LLE FEELS TINGLY (GOES TO SLEEP). RIGHT FOOT STILL FEELS NUMB. Objective/Function: PATIENT IS MAKING PROGRESS TOWARD ALL GOALS BUT BACK OSWESTRY SHOWS WORSENING. SHE IS PLEASANT AND COOPERATIVE TO WORK WITH. THIS PATIENT AMBULATES INDEP'LY INTO PT WITHOUT ANY ASSISTIVE DEVICES X APPROX 300 FEET WITH FAIR CADANCE. HOLGER UE ROM WFL. PATIENT IS NOW ABLE TO ELEVATE HOLGER UE'S ACTIVELY WITHOUT C/O INCREASED PAIN. Motor deficit: RIGHT ALLIED HEALTH INSTRUCTOR STRENGTH 55 LBS. LEFT ALLIED HEALTH INSTRUCTOR STRENGTH 60 LBS (PATIENT IS RIGHT HAND DOMINANT). HOLGER UE STRENGTH IS GROSSLY 4-5/5 WITH MMT'ING AND PATIENT REPORTED MILD INCREASED PAIN WITH TESTING SO I PROCEEDED CAREFULLY. Sensory deficit: HOLGER UE LIGHT TOUCH SENSATION IS INTACT BUT PATIENT REPORTS RIGHT UE FEELS TINGLY WITH TESTING - THE ENTIRE UE TO HER FINGERS. HOLGER UE DTR'S ARE 2/3. CERVICAL MVMT LOSS: CERVICAL ROM IS WFL ALL PLANES. THORACIC TESTING: HOLGER THORACIC ROTATION WFL WITHOUT C/O INCREASED PAIN. Core strength: POOR. Palpation: PATIENT IS CONTINUOUS IMPROVEMENT INTERN FROM THE T1 TO T7 REGION WITH LIGHT PALPATION BUT NOT ACUETLY ON INITIAL EVALUATION. OTHER: PATIENT APPEARED APPREHENSIVE DURING RE-EVAL OFF AND ON AND EXPRESSED THAT SHE DOESN'T ALWAYS TELL DR. JAVED HER SYMPTOMS BECAUSE SHE DOESN'T WANT HIM TO THINK SHE IS EXAGERATING. Plan Plan: RECOMMEND CONTINUING PT PER ORIG POC DECREASING TO 2X'S A WEEK X 3 WEEKS THEN 1X A WEEK X ONE MORE WEEK WITH FOCUS ON INDEP HEP WITH WRITTEN INSTRUCTIONS. PATIENT IS AGREEABLE. Goals Goal 1:: DECREASE C/O UPPER BACK PAIN Goal Time Frame: 2-4 Weeks Goal Progress: Progressing Goal 2:: IMPROVE HOLGER UE FUNCTIONAL PAINFREE ROM Goal Time Frame: 2-4 Weeks Goal Progress: Progressing Goal 3:: IMPROVE HOLGER UE FUNCTIONAL STRENGTH Goal Time Frame: 2-4 Weeks Goal Progress: Progressing Goal 4:: INDEP HEP Goal Time Frame: 2-4 Weeks Goal Progress: Progressing Anticipated Interventions Patient/Client Instruction: Educate patient on: Condition, Plan of Care, Risk Factors, Benefits of Fitness Program For the Purpose of:: To improve self management Therapeutic Exercise to Include: Strength training, Body mechanics, Postural training, Flexibilty training, Passive ROM, Active ROM, Scapular Strength/Stabilization For the Purpose of:: To decrease pain, To increase ROM, To improve muscle performance and motor function, To increase tolerance to activity/condition/position, To improve ability of physical actions for home/community/work/leisure Manual Therapy Techniques to Include: Soft tissue mobilization For the Purpose of:: To decrease pain, To decrease swelling/inflammation, To increase ROM Cryotherapy (ice pack, ice massage): Yes For the Purpose of:: To decrease pain, To decrease swelling/inflammation Please do not hesitate to contact me at [phone] by phone or if you have questions or concerns regarding this new plan of care! Sincerely, Amarilis Reed <Electronically signed by Amarilis Reed PT, Cert. MDT> 12/12/17 0946 CC: Gee Leon MD; Ger Javed M.D. LEESA Signed For Medicare only, by signing this I certify the plan of care. Physicians Signature Date PROGRESS Observed: 12/02/2017 Status: COMPLETED Source: [place] 2:00 PM [facility] REPOSITORY HNO ID: [id number] Author: Lorie [address] Service: (none) Author Type: (none) Type: Progress Notes Filed: 12/02/2017 2:00 PM Note Text: Radiology Service Progress Note PATIENT NAME: Ramses Bradshaw DATE OF SERVICE: December 02, 2017 TIME: 2:00 PM PATIENT IDENTITY VERIFICATION COMPLETED USING TWO (2) METHODS: Patient confirmed name verbally and Date of . PATIENT GENDER DATA: Female. status: : No status: NO. PATIENT RELEVANT IMPLANT DATA REVIEWED: Not Applicable RADIOLOGY DEPARTMENT: CT; Exam(s) Completed: Spine PERIPHERAL IV DATA: Not applicable SIGNED BY: Lorie David [address] December 02, 2017 2:[address] THORACIC SPINE WO Observed: 12/02/2017 Status: F [facility] REPOSITORY * * *Final Report* * * DATE OF EXAM: Dec 02 2017 1:46PM [facility] 0514 - CT THORACIC SPINE WO IVCON / PROCEDURE REASON: thoracic w/o * * * * Physician Interpretation * * * * EXAMINATION: CT THORACIC SPINE WO IVCON CLINICAL HISTORY: Thoracic back pain, prior lumbar surgery, prior neuroendocrine neoplasm. TECHNIQUE: Spiral, high resolution unenhanced axial images were obtained from the cervicothoracic junction to the thoracolumbar junction with sagittal and coronal planar reconstructions. MQ: [id number] Dose-Length Product (DLP): 1301 mGy*cm. CT Dose Reduction Employed: Automated exposure control (AEC) COMPARISON: None available: Specifically, images from the 10/31/[address] were not available at the time of review. RESULT: Counting reference: Lumbosacral junction. For the purposes of this report, L4-5 is considered the level of the iliac crest and there are 5 lumbar-type vertebrae. Anatomic Variants: None. Alignment: Alignment is anatomic. Bone marrow / fracture: No evidence of a lytic or blastic process in the visualized spine. Minimal degenerative endplate changes along the superior and inferior endplates of T8, and inferior endplates of T9, T10, and T12. No evidence of acute or chronic fracture. Thoracic paraspinal soft tissues: The paraspinal soft tissues planes are maintained. Postoperative changes of prior partial gastric resection, cholecystectomy, pacemaker/AICD placement, and L4-L5 posterior lumbar fusion noted on the computer aided design technician images. Multifocal posterior/dependent predominant groundglass opacities with scattered areas of air trapping in the visualized portions of the lungs. Canal and foramina: The bony thoracic canal and foramina are patent. IMPRESSION: Minimal spondylotic changes and no suspicious osteolytic or osteoblastic lesions. Anatomic Variant: None. L4-5 is considered the level of the iliac crest and assume there are 5 lumbar-type vertebrae. Cell Feed Department Supervisor: PSCB Transcribe Date/Time: Dec 02 2017 4:54P Dictated by : AUTUMN LÓPEZ MD This examination was interpreted and the report reviewed and electronically signed by: AUTUMN LÓPEZ MD on Dec 02 2017 5:06PM EST [id number] Observed: 11/21/2017 Status: COMPLETED Source: [place] 3:30 PM [facility] REPOSITORY Nurse Visit (CAWSTR) RAMSES BRADSHAW ([id number]) 1965 F Date Time Provider Department 11/21/17 3:30 PM NURSE CARD ADMIN [facility] CAWSTR During your visit today, we recorded the following information about you: Referring Provider: SELWYN FARFAN [[id number]] Allergies As of Date: 11/21/2017 Noted Allergy Reaction ASA (SALICYLATES) 11/14/2004 8 - GI Upset ERYTHROMYCIN 11/14/2004 11 - Vomiting Comments: Vomiting AND diarrhea IBUPROFEN 11/14/2004 8 - GI Upset LATEX 06/30/2010 14 - Other: See Comments Comments: Pt reports reaction to Latex, adhesives, EKG stickers w/ skin irritation at times...causes redness AND blisters NSAIDS (NON-STEROIDAL ANTI-INFLAM*02/23/2014 6 - Diarrhea 11 - Vomiting Date Reviewed: 11/21/2017 Reviewed by: Chaya (Rn) Lainey - Fully Assessed Reason for Visit: Nurse Visit [792] Visit Diagnosis:Syncope, unspecified syncope type [R55] Order(s):ECG COMPLETE W INTERPRETATION [ECG01] Order #: [id number] Prescriptions as of 11/21/2017 Sig: GABAPENTIN 300 MG CAPSULE Take 300 mg by mouth four alo* AMLODIPINE 5 MG TABLET Take 5 mg by mouth once daily. SUCRALFATE 1 GRAM TABLET TAKE 1 TABLET FOUR TIMES A DA* LISINOPRIL 20 MG TABLET Take 1 tablet by mouth once d* Patient taking differently: Take 20 mg by mouth twice kaycee* METOPROLOL TARTRATE 25 MG TAB* MECLIZINE 25 MG TABLET Take 25 mg by mouth twice kaycee* PANTOPRAZOLE 40 MG TABLET,DEL* Take 40 mg by mouth twice kaycee* CHOLECALCIFEROL (VITAMIN D3) * Take 50,000 Units by mouth on* TOLTERODINE ER 4 MG CAPSULE,E* Take 4 mg by mouth once daily. ZOLPIDEM 10 MG TABLET Take 10 mg by mouth daily at * LORAZEPAM 1 MG TABLET Take 1 mg by mouth twice sidra* NITROGLYCERIN 0.4 MG SUBLINGU* Dissolve 1 tablet under the t* HYDROXYZINE PAMOATE 25 MG CAP* Take 25 mg by mouth three alo* ABILIFY ORAL Take by mouth once daily. DULOXETINE 60 MG CAPSULE,VANESA* Take 60 mg by mouth once sidra* FERROUS FUMARATE 325 MG (106 * Take 325 mg by mouth twice da* LEVOTHYROXINE 25 MCG TABLET Take 25 mcg by mouth once kaycee* OMEPRAZOLE MAGNESIUM 20 MG CA* Take 20 mg by mouth once sidra* OXYCODONE-ACETAMINOPHEN 10 MG* Take 1 tablet by mouth every * CALCIUM CARBONATE-VITAMIN D3 * Take by mouth once each week. 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] INVALID FOR* CARDIAC PACEMAKER IN SITU [Z95.0] INVALID FOR* Spinal stenosis, lumbar region, with neurogenic*INVALID FOR* Degeneration of lumbar or lumbosacral intervert*INVALID FOR* Gastric mass [K31.9] INVALID FOR* Encounter Status:Closed by AARON DOWNING RN on 11/27/17 PROGRESS Observed: 11/21/2017 Status: COMPLETED Source: [place] 1:57 PM [facility] REPOSITORY HNO ID: [id number] Author: Selwyn Farfan Service: (none) Author Type: Physician Type: Progress Notes Filed: 11/21/2017 5:53 PM Note Text: PERTINENT CARDIAC HISTORY Syncope - multiple etiologies PPM - 2004, revised 2014 HL Chest pain PFO HTN ADHERENCE TO GUIDELINES DUSTIN-I or ARB for HF with prior LVEF<40 (NQF 0081) - N/A ASA or Plavix for ASHD (NQF 0067) - N/A Beta aislinn for ASHD with prior [place] or prior LVEF<40 (NQF 0070) - N/A Beta aislinn for HF with prior LVEF<40 (NQF 0083) - N/A DUSTIN-I or ARB for ASHD with DM or prior LVEF<40 (NQF 0066) - N/A Statin therapy for ASHD or FHL or DM - met BMI documented and plan if >25 (NQF 0421) - lifestyle recommendation form Tobacco use screening and referral (NQF 0028) - lifestyle recommendation form Recommendation for whole food, plant based diet - lifestyle recommendation form CLINICAL IMPRESSION/PLAN: 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 She has been advised to continue her current medication, particularly metoprolol. I have again encouraged her to wear support stockings for support of blood pressure. Stress testing has been done within the last 2 years and shows no evidence of ischemia. Her current discomfort is atypical for ischemic heart disease. I have encouraged her to have her pacemaker checked as soon as possible and look particularly at the dates of her syncope to make sure there was no abnormal ventricular rate. The removal of a neuroendocrine tumor is interesting. If this was a functioning tumor, it is possible that its removal may lead to an improvement in her episodes of syncope. I will see her in 8 months or as needed. Written and verbal health teaching given to patient, patient verbalizes understanding and agrees with treatment plan. DIAGNOSIS FOR VISIT: Syncope HISTORY OF PRESENT ILLNESS Ramses Bradshaw Daily for follow-up of her multifactorial syncope. She had 2 episodes in late September. 1 was associated with significant trauma. She underwent scanning and this showed no intracranial hemorrhage. She has not been wearing support stockings. She recently underwent surgery and had a well-differentiated neuroendocrine tumor removed. She knows no other details. It is unclear whether this is a functioning tumor. She's had occasional chest pain which is nonexertional and atypical for ischemic heart disease. She denies orthopnea, edema, palpitations, TIAs, amaurosis. Her pacemaker follow-up is overdue. ALLERGIES: ALLERGIES Allergen Reactions - Asa [Salicylates] GI Upset - Erythromycin Vomiting Vomiting AND diarrhea - Ibuprofen GI Upset - Latex Other: See Comments Pt reports reaction to Latex, adhesives, EKG stickers w/ skin irritation at times...causes redness AND blisters - Nsaids (Non-Steroid* Diarrhea, Vomiting CURRENT OUTPATIENT MEDICATIONS: gabapentin (NEURONTIN) 300 mg capsule Take 300 mg by mouth four times daily. amLODIPine (NORVASC) 5 mg tablet Take 5 mg by mouth once daily. lisinopril (PRINIVIL) 20 mg tablet Take 1 tablet by mouth once daily. metoprolol tartrate, short acting, (LOPRESSOR) 25 mg tablet meclizine (MOTION RELIEF, MECLIZINE,) 25 mg tab Take 25 mg by mouth twice daily as needed (Pt is allowed to take upto qid,prn). pantoprazole DR (PROTONIX) 40 mg tablet Take 40 mg by mouth twice daily. cholecalciferol, Vitamin D3, (D3-50 CHOLECALCIFEROL) 50,000 unit cap capsule Take 50,000 Units by mouth once each week. tolterodine ER (DETROL LA) 4 mg 24 hr capsule Take 4 mg by mouth once daily. zolpidem (AMBIEN) 10 mg tab Take 10 mg by mouth daily at bedtime. LORazepam (ATIVAN) 1 mg tablet Take 1 mg by mouth twice daily. nitroglycerin sublingual (NITROQUICK) 0.4 mg SL tablet Dissolve 1 tablet under the tongue as needed. FOR CHEST PAIN. IF NO RELIEF CALL 911 DULoxetine (CYMBALTA) 60 mg capsule Take 60 mg by mouth once daily. Ferrous Fumarate 325 mg (106 mg iron) tab Take 325 mg by mouth twice daily. levothyroxine (LEVOTHROID) 25 mcg tablet Take 25 mcg by mouth once daily. Calcium Carbonate-Vitamin D3 (VITAMIN D-3) 180-5,000 mg-unit tab Take by mouth once each week. metoprolol tartrate (LOPRESSOR) 50 mg ORAL Tab Take one half (1/2) tablet twice daily sucralfate (CARAFATE) 1 gram tablet TAKE 1 TABLET FOUR TIMES A DAY BEFORE MEALS AND AT BEDTIME oxyCODONE IR (ROXICODONE) 5 mg immediate release tablet Take 1 tablet by mouth every 6 hours as needed for Pain for up to 7 days. oxyCODONE IR (ROXICODONE) 5 mg immediate release tablet Take 1 tablet by mouth every 4 hours as needed for up to 7 days. oxyCODONE IR (ROXICODONE) 5 mg immediate release tablet Take 1 tablet by mouth every 4 hours as needed for Pain for up to 7 days. oxyCODONE IR (ROXICODONE) 5 mg immediate release tablet Take 1 tablet by mouth every 6 hours as needed for Pain for up to 4 days. oxyCODONE IR (ROXICODONE) 5 mg immediate release tablet Take 1 tablet by mouth every 6 hours as needed for up to 7 days. hydrOXYzine pamoate (VISTARIL) 25 mg capsule Take 25 mg by mouth three times daily as needed. ARIPIPRAZOLE (ABILIFY ORAL) Take by mouth once daily. Omeprazole Magnesium 20 mg cpDR Take 20 mg by mouth once daily. oxyCODONE-acetaminophen (PERCOCET) 10-325 mg tablet Take 1 tablet by mouth every 6 hours as needed. PHYSICAL EXAMINATION: VITAL SIGNS: BP 113/74 Pulse 64 Wt 156 lb 14.4 oz (71.2kg) Chest: Clear to auscultation. Trachea is midline. Air entry is equal. Cardiac: Regular rhythm. S1 and S2 are normal. PMI is nondisplaced. There is a soft systolic ejection murmur. Carotids are brisk without bruits. JVP is less than 10 cm. Abdomen: Soft and nontender. There are no pulsatile masses or bruits. No liver enlargement. Bowel sounds are active. Extremities: No edema. Pulses are intact and symmetrical. EKG shows sinus rhythm and is within normal limits. Hospital records were reviewed. There is no evidence of acute coronary syndrome. Troponin was undetectable. Electronically Signed: Selwyn Farfan MD November 21, 2017 1:57 PM CC: Gee Leon MD EKG1 Observed: 11/21/2017 Status: F Source: [place] 1:21 PM [facility] REPOSITORY NAME : RAMSES BRADSHAW PID : [id number] : 1965 Gender : Female Race : ORD : Procedure Date : Nov 21 2017 13:21:33 Edit Date : Nov 22 2017 10:00:32 Diagnosis:NORMAL SINUS RHYTHM NORMAL ECG Confirmed by SELWYN FARFAN MD ([id number]) on 11/22/2017 9:53:40 AM Ventricular Rate : 66 BPM Atrial Rate : 66 BPM P-R Interval : 166 ms QRS Duration : 86 ms Q-T Interval : 434 ms QTC Calculation(Bezet) : 454 ms P [place] : 30 degrees R [place] : 52 degrees T [place] : 56 degrees Test Reason : Location : 136 : [facility] Overread By : SELWYN FARFAN MD Edited By : SELWYN FARFAN MD Referred By : SELWYN FARFAN Acquired by : RACHELLE MESA Observed: 11/21/2017 Status: COMPLETED Source: [place] 1:15 PM [facility] REPOSITORY Office Visit (CAWSTR) RAMSES BRADSHAW ([id number]) 1965 F Date Time Provider Department 11/21/17 1:15 PM SELWYN FARFAN E CAWSTR During your visit today, we recorded the following information about you: Pulse Blood pressure Weight 64/minute 113/74 71.2 kg Selwyn Farfan MD 11/21/2017 5:53 PM Signed PERTINENT CARDIAC HISTORY Syncope - multiple etiologies PPM - 2004, revised 2014 HL Chest pain PFO HTN ADHERENCE TO GUIDELINES DUSTIN-I or ARB for HF with prior LVEF<40 (NQF 0081) - N/A ASA or Plavix for ASHD (NQF 0067) - N/A Beta aislinn for ASHD with prior [place] or prior LVEF<40 (NQF 0070) - N/A Beta aislinn for HF with prior LVEF<40 (NQF 0083) - N/A DUSTIN-I or ARB for ASHD with DM or prior LVEF<40 (NQF 0066) - N/A Statin therapy for ASHD or FHL or DM - met BMI documented and plan if >25 (NQ 0421) - lifestyle recommendation form Tobacco use screening and referral (NQ 0028) - lifestyle recommendation form Recommendation for whole food, plant based diet - lifestyle recommendation form CLINICAL IMPRESSION/PLAN: 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 She has been advised to continue her current medication, particularly metoprolol. I have again encouraged her to wear support stockings for support of blood pressure. Stress testing has been done within the last 2 years and shows no evidence of ischemia. Her current discomfort is atypical for ischemic heart disease. I have encouraged her to have her pacemaker checked as soon as possible and look particularly at the dates of her syncope to make sure there was no abnormal ventricular rate. The removal of a neuroendocrine tumor is interesting. If this was a functioning tumor, it is possible that its removal may lead to an improvement in her episodes of syncope. I will see her in 8 months or as needed. Written and verbal health teaching given to patient, patient verbalizes understanding and agrees with treatment plan. DIAGNOSIS FOR VISIT: Syncope HISTORY OF PRESENT ILLNESS Ramses Bradshaw Daily for follow-up of her multifactorial syncope. She had 2 episodes in late September. 1 was associated with significant trauma. She underwent scanning and this showed no intracranial hemorrhage. She has not been wearing support stockings. She recently underwent surgery and had a well-differentiated neuroendocrine tumor removed. She knows no other details. It is unclear whether this is a functioning tumor. She's had occasional chest pain which is nonexertional and atypical for ischemic heart disease. She denies orthopnea, edema, palpitations, TIAs, amaurosis. Her pacemaker follow-up is overdue. ALLERGIES: ALLERGIES Allergen Reactions - Asa [Salicylates] GI Upset - Erythromycin Vomiting Vomiting AND diarrhea - Ibuprofen GI Upset - Latex Other: See Comments Pt reports reaction to Latex, adhesives, EKG stickers w/ skin irritation at times...causes redness AND blisters - Nsaids (Non-Steroid* Diarrhea, Vomiting CURRENT OUTPATIENT MEDICATIONS: gabapentin (NEURONTIN) 300 mg capsule Take 300 mg by mouth four times daily. amLODIPine (NORVASC) 5 mg tablet Take 5 mg by mouth once daily. lisinopril (PRINIVIL) 20 mg tablet Take 1 tablet by mouth once daily. metoprolol tartrate, short acting, (LOPRESSOR) 25 mg tablet meclizine (MOTION RELIEF, MECLIZINE,) 25 mg tab Take 25 mg by mouth twice daily as needed (Pt is allowed to take upto qid,prn). pantoprazole DR (PROTONIX) 40 mg tablet Take 40 mg by mouth twice daily. cholecalciferol, Vitamin D3, (D3-50 CHOLECALCIFEROL) 50,000 unit cap capsule Take 50,000 Units by mouth once each week. tolterodine ER (DETROL LA) 4 mg 24 hr capsule Take 4 mg by mouth once daily. zolpidem (AMBIEN) 10 mg tab Take 10 mg by mouth daily at bedtime. LORazepam (ATIVAN) 1 mg tablet Take 1 mg by mouth twice daily. nitroglycerin sublingual (NITROQUICK) 0.4 mg SL tablet Dissolve 1 tablet under the tongue as needed. FOR CHEST PAIN. IF NO RELIEF CALL 911 DULoxetine (CYMBALTA) 60 mg capsule Take 60 mg by mouth once daily. Ferrous Fumarate 325 mg (106 mg iron) tab Take 325 mg by mouth twice daily. levothyroxine (LEVOTHROID) 25 mcg tablet Take 25 mcg by mouth once daily. Calcium Carbonate-Vitamin D3 (VITAMIN D-3) 180-5,000 mg-unit tab Take by mouth once each week. metoprolol tartrate (LOPRESSOR) 50 mg ORAL Tab Take one half (1/2) tablet twice daily sucralfate (CARAFATE) 1 gram tablet TAKE 1 TABLET FOUR TIMES A DAY BEFORE MEALS AND AT BEDTIME oxyCODONE IR (ROXICODONE) 5 mg immediate release tablet Take 1 tablet by mouth every 6 hours as needed for Pain for up to 7 days. oxyCODONE IR (ROXICODONE) 5 mg immediate release tablet Take 1 tablet by mouth every 4 hours as needed for up to 7 days. oxyCODONE IR (ROXICODONE) 5 mg immediate release tablet Take 1 tablet by mouth every 4 hours as needed for Pain for up to 7 days. oxyCODONE IR (ROXICODONE) 5 mg immediate release tablet Take 1 tablet by mouth every 6 hours as needed for Pain for up to 4 days. oxyCODONE IR (ROXICODONE) 5 mg immediate release tablet Take 1 tablet by mouth every 6 hours as needed for up to 7 days. hydrOXYzine pamoate (VISTARIL) 25 mg capsule Take 25 mg by mouth three times daily as needed. ARIPIPRAZOLE (ABILIFY ORAL) Take by mouth once daily. Omeprazole Magnesium 20 mg cpDR Take 20 mg by mouth once daily. oxyCODONE-acetaminophen (PERCOCET) 10-325 mg tablet Take 1 tablet by mouth every 6 hours as needed. PHYSICAL EXAMINATION: VITAL SIGNS: BP 113/74 Pulse 64 Wt 156 lb 14.4 oz (71.2kg) Chest: Clear to auscultation. Trachea is midline. Air entry is equal. Cardiac: Regular rhythm. S1 and S2 are normal. PMI is nondisplaced. There is a soft systolic ejection murmur. Carotids are brisk without bruits. JVP is less than 10 cm. Abdomen: Soft and nontender. There are no pulsatile masses or bruits. No liver enlargement. Bowel sounds are active. Extremities: No edema. Pulses are intact and symmetrical. EKG shows sinus rhythm and is within normal limits. Hospital records were reviewed. There is no evidence of acute coronary syndrome. Troponin was undetectable. Electronically Signed: Selwyn Farfan MD November 21, 2017 1:57 PM CC: MD Selwyn Beth MD 11/21/2017 1:57 PM Signed LIFESTYLE CHANGE A healthy lifestyle is the most important component of your overall treatment plan. Please give serious thought to the following areas and commit to making group home changes. EAT A WHOLE FOOD, PLANT BASED DIET The nutrition your body gets is more important than the medicine you take. What matters most is the overall way you eat. We encourage you to minimize the use of animal products (which include dairy and all meats except fatty fish) and use whole, unprocessed plant foods to provide your protein, vitamins and other nutrients. We have a lot of information to share with you on this topic. This is not a diet. It is a way of life that you will keep with you. EXERCISE REGULARLY It is not important to spend hours in the gym, lifting weights and perspiring heavily. A total of 2-3 hours per week of aerobic (causing you to be moderately short of breath) exercise is sufficient to improve your health. Talk to us before you begin a new exercise program, if you have heart disease or experience shortness of breath or chest pain. REDUCE STRESS Chronic emotional and physical stress leads to disease. Ways of reducing stress include meditation, visualization, prayer, yoga and other forms of relaxation therapy. Consistency is the gonzalez. Find a technique that works for you and do it every day. CULTIVATE RELATIONSHIPS Loneliness and isolation have a major negative impact on health. Seek out others who can love, care for and nurture you. Avoid hurtful relationships. MAINTAIN IDEAL BODY WEIGHT The best way to do this is to do all the things above. Our bodies naturally find the right weight if we keep moving and feed ourselves the right food. If your BMI is greater than 25, we strongly recommend a referral to a weight management program. Please speak to us or your family physician about available programs. AVOID NICOTINE IN ALL FORMS This includes all tobacco products, whether chewed, smoked, vaped, or rubbed on the skin. Smoking cessation programs, which can make use of tobacco substitutes, medications to suppress cravings and behavior management, are available. Please contact your family physician about programs in your area. Referring Provider: SELWYN FARFAN [[id number]] Allergies As of Date: 11/21/2017 Noted Allergy Reaction ASA (SALICYLATES) 11/14/2004 8 - GI Upset ERYTHROMYCIN 11/14/2004 11 - Vomiting Comments: Vomiting AND diarrhea IBUPROFEN 11/14/2004 8 - GI Upset LATEX 06/30/2010 14 - Other: See Comments Comments: Pt reports reaction to Latex, adhesives, EKG stickers w/ skin irritation at times...causes redness AND blisters NSAIDS (NON-STEROIDAL ANTI-INFLAM*02/23/2014 6 - Diarrhea 11 - Vomiting Date Reviewed: 11/21/2017 Reviewed by: Chaya (Carmela) Lainey - Fully Assessed Reason for Visit: Established Patient [175] Cmt: 6 month follow-up HTN Primary Visit Diagnosis:Syncope, unspecified syncope type [R55] Order(s):ECG COMPLETE W INTERPRETATION [ECG01] Order #: [id number] FUTURE Prescriptions as of 11/21/2017 Sig: GABAPENTIN 300 MG CAPSULE Take 300 mg by mouth four alo* AMLODIPINE 5 MG TABLET Take 5 mg by mouth once daily. LISINOPRIL 20 MG TABLET Take 1 tablet by mouth once d* Patient taking differently: Take 20 mg by mouth twice kaycee* METOPROLOL TARTRATE 25 MG TAB* MECLIZINE 25 MG TABLET Take 25 mg by mouth twice kaycee* PANTOPRAZOLE 40 MG TABLET,DEL* Take 40 mg by mouth twice kaycee* CHOLECALCIFEROL (VITAMIN D3) * Take 50,000 Units by mouth on* TOLTERODINE ER 4 MG CAPSULE,E* Take 4 mg by mouth once daily. ZOLPIDEM 10 MG TABLET Take 10 mg by mouth daily at * LORAZEPAM 1 MG TABLET Take 1 mg by mouth twice sidra* NITROGLYCERIN 0.4 MG SUBLINGU* Dissolve 1 tablet under the t* DULOXETINE 60 MG CAPSULE,VANESA* Take 60 mg by mouth once sidra* FERROUS FUMARATE 325 MG (106 * Take 325 mg by mouth twice da* LEVOTHYROXINE 25 MCG TABLET Take 25 mcg by mouth once kaycee* CALCIUM CARBONATE-VITAMIN D3 * Take by mouth once each week. * LOPRESSOR 50 MG TABLET Take one half (1/2) tablet tw* SUCRALFATE 1 GRAM TABLET TAKE 1 TABLET FOUR TIMES A DA* OXYCODONE 5 MG TABLET Take 1 tablet by mouth every * OXYCODONE 5 MG TABLET Take 1 tablet by mouth every * OXYCODONE 5 MG TABLET Take 1 tablet by mouth every * OXYCODONE 5 MG TABLET Take 1 tablet by mouth every * OXYCODONE 5 MG TABLET Take 1 tablet by mouth every * HYDROXYZINE PAMOATE 25 MG CAP* Take 25 mg by mouth three alo* ABILIFY ORAL Take by mouth once daily. 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 Please give serious thought to the following areas and commit to making adjunct faculty for medical terminology changes. EAT A WHOLE FOOD, PLANT BASED DIET The nutrition your body gets is more important than the medicine you take. What matters most is the overall way you eat. We encourage you to minimize the use of animal products (which include dairy and all meats except fatty fish) and use whole, unprocessed plant foods to provide your protein, vitamins and other nutrients. We have a lot of information to share with you on this topic. This is not a diet. It is a way of life that you will keep with you. EXERCISE REGULARLY It is not important to spend hours in the gym, lifting weights and perspiring heavily. A total of 2-3 hours per week of aerobic (causing you to be moderately short of breath) exercise is sufficient to improve your health. Talk to us before you begin a new exercise program, if you have heart disease or experience shortness of breath or chest pain. REDUCE STRESS Chronic emotional and physical stress leads to disease. Ways of reducing stress include meditation, visualization, prayer, yoga and other forms of relaxation therapy. Consistency is the gonzalez. Find a technique that works for you and do it every day. CULTIVATE RELATIONSHIPS Loneliness and isolation have a major negative impact on health. Seek out others who can love, care for and nurture you. Avoid hurtful relationships. MAINTAIN IDEAL BODY WEIGHT The best way to do this is to do all the things above. Our bodies naturally find the right weight if we keep moving and feed ourselves the right food. If your BMI is greater than 25, we strongly recommend a referral to a weight management program. Please speak to us or your family physician about available programs. AVOID NICOTINE IN ALL FORMS This includes all tobacco products, whether chewed, smoked, vaped, or rubbed on the skin. Smoking cessation programs, which can make use of tobacco substitutes, medications to suppress cravings and behavior management, are available. Please contact your family physician about programs in your area. Encounter Status:Closed by SELWYN FARFAN MD on 11/21/17 INITAL EVALUATION (1) Observed: 11/07/2017 Status: F Source: [place] - PT 1:33 PM [facility] [place] [facility] [address] [place], [place] [address] Fax REHABILITATION SERVICES INITIAL EVALUATION MR#: [id number] Acct: [id number] Name: RAMSES BRADSHAW Rep #: [id number] : 1965 52 From: Amarilis Reed PT, Cert. MDT Referring Dr.: Ger Javed M.D. Status: REG RCR Insurance: [employer] MEDICARE PPO MEDICAID Patient's Visit Information RAMSES BRADSHAW is a 52 year old F referred to Physical Therapy by Ger Javed MD with a diagnosis of THORACIC RADICULOPATHY. Date of Evaluation: 11/07/17 Physical Therapist: Amarilis Reed - Visit Plan Frequency: 3x /Week Duration: 2-4 Weeks Plan: POSTURE CORRECTION/STRENGTHENING, INSTRUCTION IN APPROPRIATE BODY MECHANICS AND ACTIVITY MODIFICATIONS. HOLGER UE ROM, STRETCHING AND STRENGTHENING. HEP INSTRUCTION. - Subjective Subjective: Work/Leisure: UNEMPLOYEED. Disability: YES - HEART CONDITION. Present symptoms: CENTRAL UPPER BACK PAIN. PATIENT REPORTS THAT AT TIMES SHE GETS A BULGE THERE. Present since: ABOUT 3 WEEKS AFTER THE SURGERY FOR HER CANCER THAT WAS MAY 30 2017. Pain Scale: WORST 9/10, LEAST 5/10. Currently: 7/10. Commenced as a result of: NO APPARENT REASON. Symptoms at onset: SAME. Worse: USING UPPER EXTREMITIES, LIFTING REAL HEAVY THINGS LIKE PACKING AND LIFTING BOXES. Better: ICE, RESTING ARMS. Disturbed sleep: YES. Previous history/Previous treatment: UNREMARKABLE FOR THIS PART OF HER BACK. Coughing/sneezing/straining: NEGATIVE. Gait: INDEP GAIT WITHOUT AD AND PATIENT REPORTS SHE IS REALLY FINE. Difficulty initiating urinatin: NO. Accidents: NO. Unexplained weight loss: NO. Imaging: THORACIC X-RAY - IMPRESSION: Degenerative changes without acute findings. PMH: *PACEMAKER*, HTN - SEE BELOW AND PREVIOUS PT EVAL BY THIS PT ABOUT A YEAR AGO FOR FURTHER HISTORY. 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 NO CHEMO OR RADIATION. ALSO HAD GALLBLADDER REMOVED ALONG WITH PART OF HER STOMACH. HISTORY OF BACK SURGERY DETAILED IN LAST PT EVAL. STILL GETS SCIATICA BUT PATIENT STATES SHE CAN HANDLE THAT. - Objective Sitting/Standing Posture: POOR. FORWARD HEAD. ROUNDED SHOULDERS. Active Correction of posture: WORSE. Other Observations: PATIENT IS PLEASANT AND COOPERATIVE TO WORK WITH. ANY ELEVATING OF HER ARMS PROVOKES PAIN BEHAVIOR. 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 ONLY PERFORMED MMT'ING OF SHOULDERS WTIH ELBOWS AT SIDES DUE TO SIGNIFICANT C/O PAIN WITH ELEVATION. HOLGER SHOULDER IR/ER AT LEAST 4/5. HOLGER ELBOWS 5/5. Sensory deficit: HOLGER UE LIGHT TOUCH SENSATION IS INTACT AND SYMMETRICAL AND PATIENT DENIES HOLGER UE NUMBNESS OR TINGLING. ROM deficit: PATIENT HAS FULL HOLGER SHOULDER ELEVATION BUT TESTING WITH ONE REPETITION ONE ARM AT A TIME PROVOKES SEVERE UPPER BACK PAIN. Reflexes: HOLGER UE DTR'S 2/3. CERVICAL MVMT LOSS: CERVICAL ROM IS WFL ALL PLANES AND DOES NOT PROVOKE THE UPPER BACK PAIN THAT PATIENT IS HERE FOR TODAY EXCEPT THE FIRST REP OF LEFT CERV. ROTATION. THORACIC TESTING: HOLGER THORACIC ROTATION TESTING ALSO DOES NOT PROVOKE THE PAIN PATIENT IS HERE FOR TODAY. Core strength: POOR. Palpation: PATIENT IS VERY TENDER FROM THE T1 TO T7 REGION WITH LIGHT PALPATION. OTHER: STRONGLY ENCOURAGED PATIENT TO MAKE SURE HER FAMILY DOCTOR AND ABDOMINAL SURGEON ARE AWARE OF THIS NEW PAIN. SHE REPORTS SHE DID NOT THINK TO TELL HER SURGEON ABOUT HER UPPER BACK PAIN THAT STARTED 3 WEEKS AFTER THE SURGERY BECAUSE SHE JUST THOUGHT IT WAS DUE TO INACTIVITY. - Goals Goal 1:: DECREASE C/O UPPER BACK PAIN Goal Time Frame: 2-4 Weeks Goal 2:: IMPROVE HOLGER UE FUNCTIONAL PAINFREE ROM Goal Time Frame: 2-4 Weeks Goal 3:: IMPROVE HOLGER UE FUNCTIONAL STRENGTH Goal Time Frame: 2-4 Weeks Goal 4:: INDEP HEP Goal Time Frame: 2-4 Weeks - Rehabilitation Potential Rehabilitation Potential: Fair - Anticipated Interventions Patient/Client Instruction: Educate patient on: Condition, Plan of Care, Risk Factors, Benefits of Fitness Program For the Purpose of:: To improve self management Therapeutic Exercise to Include: Strength training, Body mechanics, Postural training, Flexibilty training, Passive ROM, Active ROM, Scapular Strength/Stabilization For the Purpose of:: To decrease pain, To increase ROM, To improve muscle performance and motor function, To increase tolerance to activity/condition/position, To improve ability of physical actions for home/community/work/leisure Manual Therapy Techniques to Include: Soft tissue mobilization For the Purpose of:: To decrease pain, To decrease swelling/inflammation, To increase ROM Cryotherapy (ice pack, ice massage): Yes For the Purpose of:: To decrease pain, To decrease swelling/inflammation Thank you for the opportunity to evaluate your patient. For Medicare and Medicare HMO plans, please review the plan of care and approve it. It will need to be FAXED BACK to us at [phone] for Medicare purposes. Please let me know if there are questions or concerns regarding this plan of care. Physician Signature: Date: <Electronically signed by Amarilis Reed PT, Cert. MDT> 11/07/17 1333 CC: Gee Leon MD; Ger Javed M.D. LEESA Signed For Medicare only, by signing this I certify the plan of care. Physicians Signature Date THORACIC SPINE 2 Observed: 10/29/2017 Status: F Source: [place] VIEWS 11:28 AM [facility] [place] [facility] Imaging Services [address] [place] [address] Thoracic Spine 2 Views MR#: [id number] Acct: [id number] Name: RAMSES BRADSHAW Anne Rep #: [id number] : 1965 F 52 From: Elton Branham DO PCP: Gee Leon MD Status: REG CLI Study: Thoracic Spine 2 Views Date of Exam: 10/29/17 Exam# [id number] Ordering Dr: Ger Javed MD STUDY: X-RAY - THORACIC SPINE REASON FOR EXAM: Female, 52 years old. Back pain TECHNIQUE: 5 view(s) of the thoracic spine were obtained. COMPARISON: None. FINDINGS: Normal kyphosis of the thoracic spine. There is no substantial scoliosis. There is multilevel endplate spondylosis of the thoracic vertebrae. There is multilevel disc space narrowing of the thoracic spine. The soft tissue structures are unremarkable. RAD/Thoracic Spine 2 Views IMPRESSION: Degenerative changes without acute findings Electronically Signed: Elton Branham DO at 10:14 EDT Tel , Service support , CC: Gee Leon MD; Ger Javed M.D. Cell Feed Department Supervisor: Signed URINE DRUG SCREEN Collected: 10/29/2017 Status: F Source: [place] ([place]IST[place]) 11:18 AM [facility] [place] Order Comment: Comments: [id number] URINE DRUG SCREEN List of Drugs Taken or Suspected? UNK TYPE CODE TESTS RESULT OUT OF RANGE REFERENCE UNITS LAB L505.0075 TO BE Normal CONFIRMED Result Comment: CONFIRMATORY TESTING FOR ALL POSITIVE URINE DRUG SCREEN RESULTS WILL ONLY BE SENT OUT UPON PHYSICIAN ORDER. VISTA Urine Drug Screen methods provide only preliminary analytical test results. A more specific alternate chemical method must be used in order to obtain a confirmed analytical result. Gas chromatography/mass spectrometery (GC/MS) is the preferred confirmatory method. Clinical consideration and professional judgement should be applied to any drug of abuse test result, particularly when preliminary positive results are used. URINE TCA TESTING MUST BE ORDERED SEPARATELY. USE TEST MNEMONIC: [facility] LAB L505.5005 VISTA UDS PH 6 Normal LAB L505.5015 <1000 ng/mL AMPHETAMINES Normal NEGATIVE LAB L505.5025 < 200 ng/mL BARBITIURATES Normal NEGATIVE LAB L505.5035 < 200 ng/mL BENZODIAZIPINE Normal NEGATIVE LAB L505.5045 < 300 ng/mL COCAINE Normal NEGATIVE LAB L505.5055 < 500 ng/mL ECSTACY Normal NEGATIVE LAB L505.5065 < 300 ng/mL METHADONE Normal NEGATIVE LAB L505.5075 < 300 ng/mL OPIATES Normal NEGATIVE LAB L505.5085 < 25 ng/mL PCP Normal NEGATIVE LAB L505.5095 < 50 ng/mL THC Normal NEGATIVE Performed By: #### L505.5000 #### [facility] [address] [place], [address] MISCELLANEOUS LAB Collected: 10/29/2017 Status: F Source: [place] PROCEDURE 11:18 AM [facility] [place] Order Comment: Comments: [id number] URINE DRUG SCREEN Test(s) Ordered: [id number] URINE DRUG SCREEN TYPE CODE TESTS RESULT OUT OF RANGE REFERENCE UNITS LAB L801.1541 Normal [facility] [place] Result Comment: [id number] 6+OXYCODONE-BUND (ng/mL) DRUG RESULT SCREEN CUTOFF ____ Amphetamines,Urine Negative ng/mL 1000 Amphetamine test includes Amphetamine and Methamphetamine. Barbiturates Negative ng/mL 200 Benzodiazepines Negative ng/mL 200 Cannabinoid Negative ng/mL 20 Cocaine (Metab) Negative ng/mL 300 Opiates Negative ng/mL 300 Opiates test includes Codeine, Morphine, Hydromorphone, Hydrocodone. Oxycodone/Oxymorphone,Urine Negative ng/mL 300 Test includes Oxydodone and Oxymorphone. TESTING PERFORMED AT [facility]. ORIGINAL REPORT ON FILE IN LAB CONTAINS ADDITIONAL TEST SITE INFORMATION. Performed By: #### L801.1541 #### [facility] [address] [place], [address] EMERGENCY DEPARTMENT Observed: 10/12/2017 Status: F Source: [place] SUMMARY 10:34 PM [facility] [place] [facility] Medical Records Department [facility] [place] [address] Emergency Department Summary 10/04/17 1525 MR#: [id number] Acct: [id number] Name: RAMSES BRADSHAW Rep #: [id number] : 1965 52 From: Crystal Mcdowell PCP: Gee Leon MD Status: DEP ER - ER Visit Summary Date of Service: 10/04/17 Chief Complaint: [Syncope] History of Present Illness: The patient is a 52 F [presents the emergency department with an of episode of syncope. She was at a friend's house she walked in the house got very hot and dizzy and passed out she hit the back of her head she passed out after hitting her head. Her friend said she was unconscious for 7-8 minutes and was blue around the lips. She does not make eye contact when telling me this and is very vague about the story. The patient is complaining of low back pain neck pain and head pain. She does have a pacemaker this was last evaluated 6 months ago. She states she passed out intermittently and has a monitor on by her [employer] to let somebody know when she falls. It did not go off. She is been otherwise feeling well prior to today no chest pain no shortness of breath no infectious symptoms] Physical Examination: [] WN WD NAD PERRL EOMI MMM She has tenderness diffusely around the neck and paraspinal neck muscles she is in a c-collar NECK supple and, no masses RRR no murmur rub or gallop, no peripheral edema, symmetric radial pulses CTAB no respiratory distress chest nontender ABDOMEN is soft and nontender, normal bowel sounds, no distension, no rebound or guarding Back has tenderness in the entire lumbar spine there is a well-healed surgical scar no step-offs no bruising or ecchymosis SKIN is warm and dry no rashes Alert and Oriented x3, CN II-XII in tact, no motor or sensory deficits, gait normal No lymphadenopathy Test Results: [] Emergency Department Course and Treatment: [Patient was given something for pain EKG was obtained and is sinus at a rate of 72 with no acute ischemic changes. Screening labs were obtained as well as urinalysis and CT of the head neck and lumbar spine were obtained any blood light work shows a mild leukocytosis at 12. Urinalysis is unremarkable. She did have mild elevation of her alk phos and AST. This is new. Patient had no right upper quadrant or epigastric tenderness no nausea vomiting no symptoms of biliary obstruction. I did tell her about this and asked her to follow with her primary care physician regarding this. She was feeling improved c-collar was cleared. Patient did have some soreness of her chest repeat EKG was obtained and was unchanged. On evaluation she was tender on her lower sternum. I think this is likely secondary to chest wall contusion from her fall. There is no deformity there is no crepitus there is no bruising. Patient was given careful precautions for which to return and encouraged to follow-up closely with her primary care doctor. She is invited to come back to the emergency department for any concerns. She will ice and rest over the weekend.] Treatment Plan: [] Disposition: [Discharge] Impression: [1. Syncope 2. Closed head injury 3. Back strain 4. Chest wall contusion] This note was generated with [employer] dictation software. It may contain incorrect words, spelling, and punctuation that were not noted in review of the chart prior to signing ED Disposition - Plan for ED Patient: Chief Complaint: Syncope Referrals: Michael Leon MD [Primary Care Provider] - What to do if you have Problems For any increased pain, shortness of breath, bleeding, nausea or vomiting, chest pain, or any unexpected problems, contact your Primary Care Provider. Call [facility] ([phone]) or report to the closest Emergency Room. Call 911 if necessary. 10/12/17 2281 <Electronically signed by Crystal Mcdowell > Date Crystal Carbajal Signature (If Indicated): Date CC: Gee Leon MD 12 LEAD ELECTROCARDIOGRAM Observed: 10/10/2017 Status: F Source: [place] 11:51 AM [facility] [place] [facility] [place] [address] 12 Lead EKG 10/08/171945 MR#: [id number] Acct: [id number] Name: RAMSES BRADSHAW Rep #: [id number] : 1965 52 From: Jcarlos Mendoza MD Attending Dr: Status: DEP ER Ordering Dr: Kaushal Mendoza MD Date: 10/08/17 Location: ED Sex: F C Admitted: Test Reason : SYNCOPE Blood Pressure : / mmHG Vent. Rate : 075 BPM Atrial Rate : 075 BPM P-R Int : 176 ms QRS Dur : 088 ms QT Int : 396 ms P-R-T Axes : 040 057 053 degrees QTc Int : 442 ms Normal sinus rhythm Normal ECG Confirmed by AIDEN GAUTAM, JCARLOS ([id number]), videotape editor KIM KIM ([id number]) on 10/10/2017 11:51:34 AM Referred By: Confirmed By:JCARLOS MENDOZA MD 10/10/17 1151 Date Jcarlos Mendoza MD CC: Gee Leon MD; Kaushal Mendoza MD Signed EMERGENCY DEPARTMENT Observed: 10/09/2017 Status: F Source: [place] SUMMARY 1:46 AM [facility] Medical Records Department [address] [place] [address] Emergency Department Summary 10/09/17 0130 MR#: [id number] Acct: [id number] Name: RAMSES BRADSHAW Rep #: [id number] : 1965 52 From: Kaushal Mendoza MD PCP: Gee Leon MD Status: DEP ER - ER Visit Summary Date of Service: 10/09/17 Chief Complaint: Syncope History of Present Illness: The patient is a [address] Aadms and Dr. José. She reports that at 1:00 this afternoon she was walking to her neighbor's house and been standing for approximately 2 minutes. She began feeling lightheaded and nauseated and had a syncopal episode. She denies any diaphoresis, chest pain, palpitations, abdominal pain. With this. Patient reports that she has a history of sick sinus syndrome and a pacemaker. She had multiple syncopal episodes in the past but had not had this for a long time until 4 days ago. She reports that a syncopal episode then. She has had a headache ever since then. She did hit her head today. She denies any other injuries. No neck or back pain. Physical Examination: Vitals: Stable. Afebrile. Neck: No vertebral tenderness. Full ROM without difficulty. Cleared by NEXUS criteria. Back: No vertebral tenderness. General: A AND O x 3. NAD. Cardiovascular exam: Regular rate and rhythm, no murmur, rub or gallop. Respiratory exam: Chest nontender. No crepitus. Clear to auscultation bilaterally. No wheezes or stridor. Abdominal exam: Soft, nontender, nondistended, normal bowel sounds. No pain in RUQ or LUQ specifically. No peritoneal signs. Extremity: Atraumatic. No pain with range of motion. Test Results: EKG is sinus at 75 and is unchanged from 4 days ago. Troponin is negative. Chem-7 more for chloride 110 and glucose 115. CBC is more for white count 11.8 and hemoglobin of 15.5. Emergency Department Course and Treatment: The patient left prior to getting a CT of her brain or interrogation of her pacemaker. I did review the CTs that she had October 04. CT of the brain was normal at that time. CT of the cervical spine was normal at that time. CT of the lumbar spine showed degenerative changes. Patient was very upset that she would not receive pain medications in the emergency department. She has had a care plan in the past. I offered Tylenol. She is allergic to NSAIDs. I do not think that using opiate medications is indicated or in her best interest. Treatment Plan: Patient left prior to completion of treatment. Disposition: Left prior to completion of treatment. Impression: 1. Syncope. 2. History of sick sinus syndrome with pacemaker. 3. Left prior to completion of treatment. This note was generated with [employer] dictation software. It may contain incorrect words, spelling, and punctuation that were not noted in review of the chart prior to signing ED Disposition - Plan for ED Patient: Disposition: Against Medical Advice Chief Complaint: Syncope Referrals: Michael Leon MD [Primary Care Provider] - What to do if you have Problems For any increased pain, shortness of breath, bleeding, nausea or vomiting, chest pain, or any unexpected problems, contact your Primary Care Provider. Call [facility] ([phone]) or report to the closest Emergency Room. Call 911 if necessary. 10/09/17 0146 <Electronically signed by Kaushal Mendoza MD> Date Kaushal Mendoza MD Cosigner Signature (If Indicated): Date CC: Gee Leon MD CBC Collected: 10/09/2017 Status: F Source: [facility] 12:54 AM [facility] [place] REPOSITORY TYPE CODE TESTS RESULT OUT OF RANGE REFERENCE UNITS LAB CBC(LOINC) CBC Result Comment: CBC-COMPLETE BLOOD COUNT LAB WBC(LOINC) 4.5 - 10.8 x 10EE3/UL WBC High 13.5 LAB RBC(LOINC) 4.10 - x 10EE6/UL 5.30 RBC 5.19 LAB HEMOGLOBIN(LOINC 12.0 - g/dl ) 16.0 HEMOGLOBIN 15.5 LAB HEMATOCRIT(LOINC 34.0 - % ) 46.0 HEMATOCRIT 44.9 LAB MCV(LOINC) 80 - 99 fl MCV 87 LAB MCH(LOINC) 27 - 33 pg MCH 30 LAB MCHC(LOINC) 32 - 36 X10 3 MCHC 35 LAB RDW/CV(LOINC) 12.0 - % 15.6 RDW/CV 13.6 LAB PLATELET(LOINC) 150 - 450 x10EE3/UL PLATELET 239 LAB MPV(LOINC) 6.6 - 10.5 fl MPV 7.2 Result Comment: AUTOMATED DIFFERENTIAL LAB NEUT %(LOINC) 46.0 - 76.0 % NEUT % 73.2 LAB LYMPH %(LOINC) 20.0 - 45.0 % LYMPH % 20.2 LAB MONOS %(LOINC) 0.0 - 10.0 % MONOS % 4.7 LAB EO %(LOINC) 0.0 - 7.0 % EO % 1.2 LAB BASO %(LOINC) 0.0 - 2.0 % BASO % 0.7 LAB Lymph #(LOINC) 0.80 - 2.80 x10EE3/U L Lymph # 2.70 LAB Neut #(LOINC) 1.50 - 7.10 x10EE3/U L Neut # High 9.90 LAB [place] #(LOINC) 0.20 - 1.00 x10EE3/U L [place] # 0.60 LAB EO #(LOINC) 0.00 - 0.50 x10EE3/U L EO # 0.20 LAB Baso #(LOINC) 0.00 - 0.10 x10EE3/U L Baso # 0.10 LAB MANUAL DIFF(LOINC) MANUAL DIFF N/A LAB MORPHOLOGY(INC ) MORPHOLOGY N/A Result Comment: {CD] Performed By: #### [id number] #### [place] [address] TROPONIN Collected: 10/09/2017 Status: F Source: [facility] 12:[address] [place] [address] REPOSITORY TYPE CODE TESTS RESULT OUT OF REFERENCE UNITS RANGE LAB TROPONIN 0.00 - 0.05 ng/ml I(LOINC) TROPONIN I <0.01 Result Comment: Elevated troponin (above the 99th percentile) usually indicates myocardial ischemia. Results must be interpreted within the clinical setting. 1.Non-ischemic pathology can also cause elevated troponin levels (e.g., acute pulmonary embolism, myocarditis, pericarditis, heart failure, intracranial injury, rhabdomyolisis, sepsis, shock and renal insufficiency). 2.Approximately 1% of healthy adults have elevated troponin levels. 3.Analytical false positive results rarely occur(due to multiple interferences such as heterophile antibodies). Performed By: #### [id number] #### [place] [address] CMP WITH EGFR Collected: 10/09/2017 Status: F Source: [place] [id number] [place] [address] REPOSITORY TYPE CODE TESTS RESULT OUT OF RANGE REFERENCE UNITS LAB CMP with eGFR(LOINC) CMP with eGFR Result Comment: COMPREHENSIVE METABOLIC PANEL LAB SODIUM(LOINC) 136 - 145 mmol/l SODIUM 141 LAB POTASSIUM(LOINC) 3.5 - 5.1 mmol/L POTASSIUM 3.8 LAB CHLORIDE(LOINC) 98 - 107 mmol/L CHLORIDE 107 LAB CO2(LOINC) 21.0 - mmol/L 31.0 CO2 25.4 LAB GLUCOSE(LOINC) 74 - 106 mg/dl GLUCOSE High 117 LAB BUN(LOINC) 6 - 20 mg/dl BUN 11 LAB CREATININE(LOINC) 0.6 - 1.2 mg/dl CREATININE 0.7 LAB AST/SGOT(LOINC) 13 - 39 U/L AST/SGOT 14 LAB ALK PHOS(LOINC) 38 - 126 U/L ALK PHOS 124 LAB CALCIUM(LOINC) 8.6 - mg/dl 10.2 CALCIUM 10.2 LAB TOTAL 6.4 - 8.3 g/dl PROTEIN(LOINC) TOTAL PROTEIN 7.2 LAB ALBUMIN(LOINC) 3.4 - 4.8 g/dL ALBUMIN 4.3 LAB GLOBULIN(LOINC) 1.5 - 3.8 G/DL GLOBULIN 2.9 LAB A/G RATIO(LOINC) 0.9 - 1.6 A/G RATIO 1.5 LAB TOTAL BILI(LOINC) 0.0 - 1.5 mg/dl TOTAL BILI 0.3 LAB B/C RATIO(LOINC) 0 - 30 ratio B/C RATIO 16 LAB ALT/SGPT(LOINC) 8 - 35 U/L ALT/SGPT 29 LAB ANION GAP(LOINC) 10 - 20 mmol/L ANION GAP 12 LAB AGE(LOINC) years AGE 52 LAB eGFR(LOINC) 60 - 999 ML/MINUTE eGFR >60 LAB eGFR(AA)(LOINC) 60 - 999 ML/MINUTE eGFR(AA) >60 Result Comment: ACCORDING TO THE NATIONAL KIDNEY DISEASE EDUCATION PROGRAM(NKDE), A NORMAL eGFR IS A VALUE GREATER THAN OR EQUAL TO 60 ML/MIN/1.73 SQ METERS. CHRONIC KIDNEY DISEASE: <60mL/MIN/1.73 SQ METERS KIDNEY FAILURE: <15mL/MIN/1.73 SQ METERS THIS TEST SHOULD ONLY BE USED FOR PATIENTS 18 YEARS OF AGE AND OLDER. Performed By: #### [id number] #### [facility],[address] [place], [place] [id number] CBC W/DIFF, AUTOMATED Collected: 10/08/2017 Status: C Source: [place] 8:00 [place] [facility] [place] TYPE CODE TESTS RESULT OUT OF RANGE REFERENCE UNITS LAB L100.1000 4.4-11.0 K/mm3 High 11.8 WBC LAB L100.1200 4.2-5.4 M/mm3 5.16 Normal RBC LAB L100.1300 12.0-15.0 g/dl High 15.5 HGB LAB L100.1400 37-47 % 45.6 Normal HCT LAB L100.1500 81-99 fL 88.4 Normal MCV LAB L100.1600 27.0-32.0 pg 30.0 Normal MCH LAB L100.1700 32-36 g/gl 34.0 Normal MCHC LAB L100.1810 11.6-14.6 % 13.3 Normal RDW CV LAB L100.1820 35.1-43.9 fl 42.8 Normal RDW SD LAB L100.1900 150-450 K/mm3 Test Normal PLT not performed Result Comment: Please note: For this sample, a platelet estimate is provided rather than a platelet count due to platelet clumping. Other parameters associated with this sample are not affected by platelet clumping. If a more accurate platelet count is required, a redraw of the patient will be necessary. LAB L100.2000 6.2-12.0 fl Normal MPV 10.0 LAB L100.2100 47-70 % Normal NEUT% 63.2 LAB L100.2200 19-41 % Normal LY% 29.1 LAB L100.2300 0-10 % Normal MONO% 5.3 LAB L100.2400 0-5 % Normal EO% 2.0 LAB L100.2500 0-1 % Normal BASO% 0.1 LAB L100.2550 0.0-0.9 % Normal IM 0.300 GRAN % Result Comment: IG% - Immature Granulocytes (promyelocytes, myelocytes and metamyelocytes) > 1% indicates that a LEFT SHIFT is Present. LAB L100.2620 2.0-7.7 X10 3/uL Normal Absolute Neut 7.5 LAB L100.2720 0.83-4.51 X10 3/ul Normal Absolute Lymph 3.43 LAB L100.5500 ADEQ Normal PLT EST ADEQUATE LAB L100.7000 NORM C AND C NORMAL Normal RED CELL MORPH NORM C+C Performed By: #### L100.0100 #### [facility] [address] [place], [address] BASIC METABOLIC Collected: 10/08/2017 Status: F Source: [place] ([place]) 8:[place] [facility] [place] TYPE CODE TESTS RESULT OUT OF RANGE REFERENCE UNITS LAB L501.0100 74-106 mg/dL High GLU 115 Result Comment: Fasting Glucose result from 100 to 125 mg/dL suggests IMPAIRED HOMEOSTASIS per A.D.A. criteria. Please note revised GLUCOSE reference range effective 2017. LAB L501.1000 7-18 mg/dL Normal BUN 12 LAB L501.1100 0.55-1.02 mg/dL Normal CREAT,SERUM 0.74 Result Comment: The validity of the calculated GFR AND GFRAA in patients over 70 years has not been determined. Clinical correlation is essential. LAB L501.1110 >60 mL/min Normal EST GFR 87 Result Comment: Non- GFR Calc LAB L501.1115 >60 mL/min Normal EST GFR - AA 105 Result Comment: GFR Calc LAB L501.1255 ml/min Normal Estimated CRCL 70.34 LAB L501.1300 10-20 RATIO Normal BUN/CRE 16.1 LAB L501.2200 8.5-10 mg/dL Normal .1 CA 9.7 LAB L501.5300 136-14 mmol/L Normal 5 NA 142 LAB L501.5600 3.5-5. mmol/L Normal 1 K 4.2 Result Comment: Moderate Hemolysis, Result may be falsely increased. LAB L501.5900 98-107 mmol/L High CL 110 LAB L501.6100 21.0-32.0 mmol/L Normal CO2 27.0 LAB L501.6200 5-15 Normal 5 GAP Performed By: #### L500.2500, L501.4010 #### [facility] [address] [place], [address] TROPONIN-I Collected: 10/08/2017 Status: F Source: [place] 8:00 PM [facility] [place] TYPE CODE TESTS RESULT OUT OF RANGE REFERENCE UNITS LAB L501.4010 <0.045 ng/mL Normal < 0.015 TROPONIN-I Result Comment: TROPONIN-I EXPECTED VALUES <0.045 Negative 0.045 - 0.590 Consistent with Cardiac Damage > OR = 0.600 Critical Value Not every elevated troponin is indicative of OH. These values should be used with clinical judgement in examining the patient's clinical picture for diagnosis. To establish a diagnosis of OH versus myocardial injury, there must be a demonstrated rise and/or fall in the troponin values, in addition to ischemic symptoms, EKG changes, new regional wall motion abnormality, and/or angiographical evidence. PLEASE NOTE: REFERENCE RANGES EDITED 17 Performed By: #### L500.2500, L501.4010 #### [facility] [address] [place] [address]. [place], [address] 12 LEAD ELECTROCARDIOGRAM Observed: 10/08/2017 Status: F Source: [place] 2:15 PM [facility] [place] [facility] Cardiovascular Services [address] [place] [address] 12 Lead EKG 10/04/17 1402 MR#: [id number] Acct: [id number] Name: RAMSES BRADSHAW Rep #: [id number] : 1965 52 From: Jcarlos Mendoza MD Attending Dr: Status: DEP ER Ordering Dr: Crystal Mcdowell Date: 10/04/17 Location: ED Sex: F C Admitted: Test Reason : SYNCOPE Blood Pressure : / mmHG Vent. Rate : 072 BPM Atrial Rate : 072 BPM P-R Int : 132 ms QRS Dur : 076 ms QT Int : 406 ms P-R-T Axes : 012 069 050 degrees QTc Int : 444 ms Normal sinus rhythm Normal ECG Confirmed by AIDEN GAUTAM, JCARLOS ([id number]), videotape editor KIM KIM ([id number]) on 10/08/2017 2:14:39 PM Referred By: IRENA Confirmed By:JCARLOS MENDOZA MD 10/08/17 1414 Date Jcarlos Mendoza MD CC: Crystal Mcdowell; Gee Leon MD Signed 12 LEAD ELECTROCARDIOGRAM Observed: 10/08/2017 Status: F Source: [place] 2:15 PM [facility] [place] [facility] Cardiovascular Services [address] [place] [address] 12 Lead EKG 10/04/17 1630 MR#: [id number] Acct: [id number] Name: RAMSES BRADSHAW Rep #: [id number] : 1965 52 From: Jcarlos Mendoza MD Attending Dr: Status: DEP ER Ordering Dr: Crystal Mcdowell Date: 10/04/17 Location: ED Sex: F C Admitted: Test Reason : REPEAT CP Blood Pressure : / mmHG Vent. Rate : 065 BPM Atrial Rate : 065 BPM P-R Int : 184 ms QRS Dur : 088 ms QT Int : 416 ms P-R-T Axes : 039 042 047 degrees QTc Int : 432 ms Normal sinus rhythm Normal ECG Confirmed by AIDEN GAUTAM, JCARLOS ([id number]), videotape editor KIM KIM ([id number]) on 10/08/2017 2:15:05 PM Referred By: IRENA Confirmed By:JCARLOS MENDOZA MD 10/08/17 1415 Date Jcarlos Mendoza MD CC: Crystal Mcdowell; Gee Leon MD Signed DISCHARGE INSTRUCTION Observed: 10/04/2017 Status: F Source: [place] 4:40 PM [facility] [place] [facility] Medical Records Department [address] [place] [address] Discharge Instruction 10/04/17 1639 MR#: [id number] Acct: [id number] Name: RAMSES BRADSHAW Rep #: [id number] : 1965 52 From: Crystal Mcdowell PCP: Gee Leon MD Status: REG ER ED Disposition - Plan for ED Patient: Chief Complaint: Syncope Instructions: ED Fainting Unkn Cause, ED Head Injury Closed, ED Sprain Strain Lumbar Referrals: Michael Leon MD [Primary Care Provider] - 3-5 Days What to do if you have Problems For any increased pain, shortness of breath, bleeding, nausea or vomiting, chest pain, or any unexpected problems, contact your Primary Care Provider. Call [facility] ([phone]) or report to the closest Emergency Room. Call 911 if necessary. 10/04/17 1640 <Electronically signed by Crystal Mcdowell > Date Crystal Mcdowell Cosigner Signature (If Indicated): Date CC: Gee Leon MD URINALYSIS, COMPLETE Collected: 10/04/2017 Status: F Source: [place] 4:00 PM [facility] [place] Order Comment: Order Date: 10/04/17 How was Urine Obtained? SPEED OPERATOR TO SPECIFY TYPE CODE TESTS RESULT OUT OF RANGE REFERENCE UNITS LAB L400.3000 Yellow COLOR Normal Yellow LAB L400.3050 Clear Normal CLARITY Clear LAB L400.3200 Normal mg/dl Normal GLUCOSE, UR Normal LAB L400.3300 Negative mg/dL Normal BILIRUBIN URINE Negative LAB L400.3400 Negative mg/dl Normal KETONE UR Negative LAB L400.3465 1.002-1.030 Normal SP.GR. DIPSTX 1.005 LAB L400.3550 5.0 - 8.0 pH UR Normal 6.5 LAB L400.3600 Negative mg/dl PROT Normal DIPSTX Negative LAB L400.3700 Normal mg/dl Normal UROBILI Normal LAB L400.3750 Negative Normal NITRITE UR Negative LAB L400.3780 Negative /ul Normal OCCULT BLOOD-UR Negative LAB L400.3800 Negative /ul LEUK Normal ESTERASE Negative LAB L400.4050 0-5 /hpf WBC Normal 0-5 SEEN LAB L400.4100 0-5 /hpf 0 Normal RBC-UA SEEN LAB L400.4150 5-10 /hpf SQUAM 0 Normal EPI SEEN LAB L400.4300 None Seen /hpf 0 Normal BACTERIA SEEN LAB L400.4350 <or=2+ /hpf 0 Normal MUCUS, URINE SEEN Performed By: #### L400.0001 #### [facility] [address] [place], [place], [id number] URINE DRUG SCREEN Collected: 10/04/2017 Status: F Source: [facility] ([place] 4:00 PM [facility] [place] TYPE CODE TESTS RESULT OUT OF RANGE REFERENCE UNITS LAB L505.0075 TO BE Normal CONFIRMED Result Comment: CONFIRMATORY TESTING FOR ALL POSITIVE URINE DRUG SCREEN RESULTS WILL ONLY BE SENT OUT UPON PHYSICIAN ORDER. VISTA Urine Drug Screen methods provide only preliminary analytical test results. A more specific alternate chemical method must be used in order to obtain a confirmed analytical result. Gas chromatography/mass spectrometery (GC/MS) is the preferred confirmatory method. Clinical consideration and professional judgement should be applied to any drug of abuse test result, particularly when preliminary positive results are used. URINE TCA TESTING MUST BE ORDERED SEPARATELY. USE TEST MNEMONIC: [facility] LAB L505.5005 VISTA UDS PH 6 Normal LAB L505.5015 <1000 ng/mL AMPHETAMINES Normal NEGATIVE LAB L505.5025 < 200 ng/mL BARBITIURATES Normal NEGATIVE LAB L505.5035 < 200 ng/mL BENZODIAZIPINE Normal NEGATIVE LAB L505.5045 < 300 ng/mL COCAINE Normal NEGATIVE LAB L505.5055 < 500 ng/mL ECSTACY Normal NEGATIVE LAB L505.5065 < 300 ng/mL METHADONE Normal NEGATIVE LAB L505.5075 < 300 High ng/mL OPIATES POSITIVE LAB L505.5085 < 25 ng/mL PCP Normal NEGATIVE LAB L505.5095 < 50 ng/mL THC Normal NEGATIVE Performed By: #### L505.5000 #### [facility], [address] CBC W/DIFF, AUTOMATED Collected: 10/04/2017 Status: F Source: [place] 2:34 PM [facility] [place] TYPE CODE TESTS RESULT OUT OF RANGE REFERENCE UNITS LAB L100.1000 4.4-11.0 K/mm3 High WBC 12.0 LAB L100.1200 4.2-5.4 M/mm3 Normal RBC 4.88 LAB L100.1300 12.0-15.0 g/dl Normal HGB 14.8 LAB L100.1400 37-47 % Normal HCT 43.8 LAB L100.1500 81-99 fL Normal MCV 89.8 LAB L100.1600 27.0-32.0 pg Normal MCH 30.3 LAB L100.1700 32-36 g/gl Normal MCHC 33.8 LAB L100.1810 11.6-14.6 % Normal RDW CV 13.7 LAB L100.1820 35.1-43.9 fl High RDW SD 44.7 LAB L100.1900 150-450 K/mm3 Normal PLT 231 LAB L100.2000 6.2-12.0 fl Normal MPV 9.1 LAB L100.2100 47-70 % Normal NEUT% 59.3 LAB L100.2200 19-41 % Normal LY% 31.9 LAB L100.2300 0-10 % Normal MONO% 5.5 LAB L100.2400 0-5 % Normal EO% 2.9 LAB L100.2500 0-1 % Normal BASO% 0.3 LAB L100.2550 0.0-0.9 % Normal IM GRAN % 0.100 Result Comment: IG% - Immature Granulocytes (promyelocytes, myelocytes and metamyelocytes) > 1% indicates that a LEFT SHIFT is Present. LAB L100.2620 2.0-7.7 X10 3/uL Normal Absolute Neut 7.1 LAB L100.2720 0.83-4.51 X10 3/ul Normal Absolute Lymph 3.81 Performed By: #### L100.0100 #### [facility] [address] [place], [place], [address] COMPREHENSIVE METABOLIC Collected: 10/04/2017 Status: F Source: [facility] 2:34 PM [facility] [place] TYPE CODE TESTS RESULT OUT OF RANGE REFERENCE UNITS LAB L501.0100 74-106 mg/dL Normal GLU 92 Result Comment: Please note revised GLUCOSE reference range effective 2017. LAB L501.1000 7-18 mg/dL High BUN 19 LAB L501.1100 0.55-1.02 mg/dL Normal CREAT,SERUM 0.71 Result Comment: The validity of the calculated GFR AND GFRAA in patients over 70 years has not been determined. Clinical correlation is essential. LAB L501.1110 >60 mL/min Normal EST GFR 92 Result Comment: Non- GFR Calc LAB L501.1115 >60 mL/min Normal EST GFR - AA 111 Result Comment: GFR Calc LAB L501.1255 ml/min Normal Estimated CRCL 76.67 LAB L501.1300 10-20 RATIO High BUN/CRE 26.8 LAB L501.1500 6.4-8. g/dL Normal 2 T PROT 7.3 LAB L501.1800 3.2-5. g/dL Normal 0 ALB 3.4 LAB L501.1950 2.2-4. g/dL Normal 2 GLOB 3.9 LAB L501.2000 0.9-2. RATIO Normal 4 A/G 0.9 LAB L501.2200 8.5-10 mg/dL Normal .1 CA 9.3 LAB L501.4100 15-37 U/L Normal AST 16 LAB L501.4305 45-117 U/L High ALK P 186 LAB L501.4405 13-56 U/L High ALT 76 LAB L501.4600 0.20-1 mg/dL Normal .00 T BILI 0.20 LAB L501.5300 136-14 mmol/L Normal 5 NA 144 LAB L501.5600 3.5-5. mmol/L Normal 1 K 4.0 LAB L501.5900 98-107 mmol/L High CL 110 LAB L501.6100 21.0-3 mmol/L Normal 2.0 CO2 27.0 LAB L501.6200 5-15 Normal GAP 7 Performed By: #### L500.4050, L501.4010 #### [facility] [address] [place], [address] TROPONIN-I Collected: 10/04/2017 Status: F Source: [place] 2:34 PM [facility] [place] TYPE CODE TESTS RESULT OUT OF RANGE REFERENCE UNITS LAB L501.4010 <0.045 ng/mL Normal < 0.015 TROPONIN-I Result Comment: TROPONIN-I EXPECTED VALUES <0.045 Negative 0.045 - 0.590 Consistent with Cardiac Damage > OR = 0.600 Critical Value Not every elevated troponin is indicative of OH. These values should be used with clinical judgement in examining the patient's clinical picture for diagnosis. To establish a diagnosis of OH versus myocardial injury, there must be a demonstrated rise and/or fall in the troponin values, in addition to ischemic symptoms, EKG changes, new regional wall motion abnormality, and/or angiographical evidence. PLEASE NOTE: REFERENCE RANGES EDITED 17 Performed By: #### L500.4050, L501.4010 #### [facility] [address] [place], [address] BRAIN/HEAD WITHOUT Observed: 10/04/2017 Status: F Source: [place] CONTRAST 2:30 PM [facility] [place] [facility] Imaging Services [address] [place] [address] Brain/Head without Contrast MR#: [id number] Acct: [id number] Name: RAMSES BRADSHAW Rep #: [id number] : 1965 F 52 From: Sherwin Dobbs MD PCP: Gee Leon MD Status: PRE ER Study: Brain/Head without Contrast Date of Exam: 10/04/17 Exam# [id number] Ordering Dr: Crystal Mcdowell STUDY: CT BRAIN WITHOUT CONTRAST REASON FOR EXAM: Female, 52 years old. Syncope with a fall RADIATION DOSAGE (If Supplied By Facility): CTDIvol = ( 60.81 ) mGy, DLP = ( 998.67 ) mGycm TECHNIQUE: Transaxial CT imaging of the brain was performed without administration of intravenous contrast material. Individualized dose optimization techniques were used for this CT. COMPARISON: None. FINDINGS: Normal soft tissue structures. Normal calvarium. Normal size ventricles and extra-axial spaces for the patient's age. Normal white matter tracts of the cerebral hemispheres. Normal basal ganglia and thalami. Normal brainstem. Normal cerebellum. There is no intracranial hemorrhage. There are no findings of an acute ischemic infarction. Normal visualized paranasal sinuses. CT/Brain/Head without Contrast IMPRESSION: Normal unenhanced CT scan of the brain. Electronically Signed: Murphy Dobbs MD at 15:19 EDT , Service support , CC: Crystal Mcdowell; Gee Leon MD Cell Feed Department Supervisor: Signed SPINE CERVICAL Observed: 10/04/2017 Status: F Source: [place] WITHOUT CONTRAS 2:30 PM [facility] [place] [facility] Imaging Services [address] [place] [address] Spine Cervical without Contras MR#: [id number] Acct: [id number] Name: RAMSES BRADSHAW Rep #: [id number] : 1965 F 52 From: Sherwin Dobbs MD PCP: Gee Leon MD Status: PRE ER Study: Spine Cervical without Contras Date of Exam: 10/04/17 Exam# [id number] Ordering Dr: Crystal Mcdowell STUDY: CT CERVICAL SPINE WITHOUT CONTRAST REASON FOR EXAM: Female, 52 years old. RADIATION DOSAGE (If Supplied By Facility): CTDIvol = ( 27.23 ) mGy, DLP = ( 506.99 ) mGycm TECHNIQUE: High resolution transaxial imaging was performed without contrast material. Sagittal and coronal images were reconstructed. Individualized dose optimization techniques were used for this CT. COMPARISON: None FINDINGS: Normal craniovertebral junction. Normal anterior atlantoaxial articulation. Normal odontoid process. Normal cervical lordosis. Normal vertebral bodies and posterior osseous elements. C2-3: Normal endplates. Normal disc height and morphology. Normal central canal and intervertebral neuroforamina. C3-4: Normal endplates. Normal disc height and morphology. Normal central canal and intervertebral neuroforamina. C4-5: Normal endplates. Normal disc height and morphology. Normal central canal and intervertebral neuroforamina. C5-6: Normal endplates. Normal disc height and morphology. Normal central canal and intervertebral neuroforamina. C6-7: Normal endplates. Normal disc height and morphology. Normal central canal and intervertebral neuroforamina. C7-T1: Normal endplates. Normal disc height and morphology. Normal central canal and intervertebral neuroforamina. There are scattered subcentimeter jugular chain lymph nodes. CT/Spine Cervical without Contras IMPRESSION: Normal unenhanced CT examination of the cervical spine. Scattered subcentimeter jugular chain lymph nodes. Electronically Signed: Murphy Dobbs MD at 15:20 EDT , Service support , CC: Crystal Mcdowell; Gee Leon MD Cell Feed Department Supervisor: Signed SPINE LUMBAR WITHOUT Observed: 10/04/2017 Status: F Source: [place] 2:30 PM [facility] [place] [facility] Imaging [facility] [address] [facility] [place] [address] Spine Lumbar without Contrast MR#: [id number] Acct: [id number] Name: RAMSES BRADSHAW Rep #: [id number] : 1965 F 52 From: Sherwin Dobbs MD PCP: Gee Leon MD Status: PRE ER Study: Spine Lumbar without Contrast Date of Exam: 10/04/17 Exam# [id number] Ordering Dr: Crystal Mcdowell STUDY: CT LUMBAR SPINE WITHOUT CONTRAST REASON FOR EXAM: Female, 52 years old. Syncope, back pain RADIATION DOSAGE (If Supplied By Facility): CTDIvol = ( 30.00 ) mGy, DLP = ( 794.65 ) mGycm TECHNIQUE: The patient was scanned in a multi detector CT scanner. High resolution transaxial imaging was performed. Images were obtained from mid T12 to the lower coccyx. Sagittal and coronal images were reconstructed. Individualized dose optimization techniques were used for this CT. COMPARISON: 12/01/2016 FINDINGS: Normal lumbar lordosis. There is no substantial scoliosis. Normal alignment of the lumbar vertebral bodies. There is mild osseous demineralization. There is postsurgical fusion with laminectomy defect at L4-5. T11-12: Normal endplates. Normal disc height and morphology. Normal bilateral facet joints. Normal central canal and bilateral lateral recesses. Normal bilateral intervertebral neural foramina. T12-L1: Normal endplates. Normal disc height and morphology. Normal bilateral facet joints. Normal central canal and bilateral lateral recesses. Normal bilateral intervertebral neural foramina. L1-2: Normal endplates. Normal disc height and morphology. Normal bilateral facet joints. Normal central canal and bilateral lateral recesses. Normal bilateral intervertebral neural foramina. L2-3: Normal endplates. Normal disc height and morphology. Normal bilateral facet joints. Normal central canal and bilateral lateral recesses. Normal bilateral intervertebral neural foramina. L3-4: Normal endplates. Normal disc height and mild broad- based bulging. Arthrosis of the bilateral facet joints. Minimal narrowing of the central canal and bilateral lateral recesses. Normal bilateral intervertebral neural foramina. L4-5: 1 mm anterolisthesis. Normal endplates. Normal disc height and morphology. Bilateral pedicle screws with fusion. Wide laminectomy defect. Normal central canal and bilateral lateral recesses. Normal bilateral intervertebral neural foramina. L5-S1: Minimal spondylosis of the endplates. Normal disc height and morphology. Bilateral pedicle screws with fusion. Wide laminectomy defect. Normal central canal and bilateral lateral recesses. Normal bilateral intervertebral neural foramina. Peripheral calcifications noted in the abdominal aorta. CT/Spine Lumbar without Contrast IMPRESSION: Multilevel degenerative changes, as described above. No acute findings Stable postsurgical changes at L4 and L5 No significant interval change Electronically Signed: Murphy Dobbs MD at 15:22 EDT , Service support , CC: Crystal Mcdowell; Gee Leon MD Cell Feed Department Supervisor: Signed 12 LEAD ELECTROCARDIOGRAM Observed: 08/28/2017 Status: F Source: [place] 3:14 PM [facility] [place] [facility] Cardiovascular Services [address] [place] [address] 12 Lead EKG 08/22/17 6425 MR#: [id number] Acct: [id number] Name: RAMSES BRADSHAW Rep #: [id number] : 1965 52 From: Jcarlos Mendoza MD Attending Dr: Status: DEP ER Ordering Dr: Debi Amaya MD Date: 08/22/17 Location: ED Sex: F C Admitted: Test Reason : FALL Blood Pressure : / mmHG Vent. Rate : 058 BPM Atrial Rate : 058 BPM P-R Int : 172 ms QRS Dur : 088 ms QT Int : 440 ms P-R-T Axes : 021 034 038 degrees QTc Int : 431 ms Sinus bradycardia Otherwise normal ECG Confirmed by AIDEN GAUTAM, JCARLOS ([id number]), videotape editor KIM KIM ([id number]) on 08/28/2017 3:14:14 PM Referred By: KRISS Confirmed By:JCARLOS MENDOZA MD 08/28/17 1514 Date Jcarlos Mendoza MD CC: Debi Amaya MD; Gee Leon MD Signed EMERGENCY DEPARTMENT Observed: 08/27/2017 Status: F Source: [place] SUMMARY 7:29 AM [facility] [place] [facility] Medical Records Department [address] [place] [address] Emergency Department Summary 08/27/17 0340 MR#: [id number] Acct: [id number] Name: RAMSES BRADSHAW Rep #: [id number] : 1965 52 From: Ubaldo Dhillon MD PCP: Gee Leon MD Status: DEP ER - ER Visit Summary Date of Service: 08/27/17 Chief Complaint: Pain History of Present Illness: The patient is a 52 F with right hip and right rib pain. The patient was here several days ago and had negative x-rays after a fall. She was pulled over by a dog. She has been taking Tylenol. She took 5 g 3 days ago and she is taking up to 2 500 mg tablets every 2 hours throughout today. The patient thinks that that Tylenol is making her stomach hurt. She denies any other symptoms. Physical Examination: Afebrile and vital signs unremarkable. The patient is alert and oriented. Sitting comfortably. Heart regular rate and rhythm. Lungs clear. Abdomen soft, nontender, nondistended, normal bowel sounds, no masses. Skin is normal in color with no pallor or jaundice. Back is nontender. Test Results: CBC unremarkable. CMP unremarkable. Coags normal. Lipase normal. Tylenol 4.9, low. Emergency Department Course and Treatment: There is no indication to repeat imaging from the patient's injury. The Tylenol may be upsetting her stomach, but it does not appear that she has any signs of liver damage or toxicity. Her Tylenol level is low. Her abdominal exam is unremarkable and her laboratory studies are unremarkable. I educated the patient about proper Tylenol dosage. She may also use topical remedies for pain. She should follow-up with her primary care doctor. She will be discharged. Patient was upset and discharge that she did not get something for pain. I advised her that she has had narcotic prescriptions for this. Any further controlled substances should be from her primary care doctor or pain management. There is no fracture or other objective cause of her pain. We discussed topical remedies like lidocaine, BenGay, etc. She may also take Tylenol, but was advised to take the appropriate dose. Patient was reassured that her imaging including abdominal CT was unremarkable. She will follow- up with her doctor. Treatment Plan: As above Disposition: Discharged Impression: 1. Right hip pain 2. Back pain 3. Abdominal pain This note was generated with [employer] dictation software. It may contain incorrect words, spelling, and punctuation that were not noted in review of the chart prior to signing ED Disposition - Plan for ED Patient: Disposition: Home or Assisted Living Chief Complaint: Lower Extremity Injury Instructions: ED Abdominal Pain Unkn Cause Prescriptions: Famotidine [Pepcid] 20 mg PO BID #60 tab Referrals: Michael Leon MD [Primary Care Provider] - What to do if you have Problems For any increased pain, shortness of breath, bleeding, nausea or vomiting, chest pain, or any unexpected problems, contact your Primary Care Provider. Call [facility] ([phone]) or report to the closest Emergency Room. Call 911 if necessary. 08/27/17 0729 <Electronically signed by Ubaldo Dhillon MD> Date Ubaldo Dhillon MD Cosigner Signature (If Indicated): Date CC: Gee Leon MD DISCHARGE INSTRUCTION Observed: 08/27/2017 Status: F Source: [place] 7:29 AM [facility] [place] [facility] Medical Records Department [address] [place] [address] Discharge Instruction 08/27/17 0343 MR#: [id number] Acct: [id number] Name: RAMSES BRADSHAW Rep #: [id number] : 1965 52 From: Ubaldo Dhillon MD PCP: Gee Leon MD Status: DEP ER ED Disposition - Plan for ED Patient: Chief Complaint: Lower Extremity Injury Instructions: ED Abdominal Pain Unkn Cause Prescriptions: Famotidine [Pepcid] 20 mg PO BID #60 tab Referrals: Michael Leon MD [Primary Care Provider] - What to do if you have Problems For any increased pain, shortness of breath, bleeding, nausea or vomiting, chest pain, or any unexpected problems, contact your Primary Care Provider. Call [facility] ([phone]) or report to the closest Emergency Room. Call 911 if necessary. 08/27/17 0729 <Electronically signed by Ubaldo Dhillon MD> Date Ubaldo Dhillon MD Cosigner Signature (If Indicated): Date CC: Gee Leon MD CBC W/DIFF, AUTOMATED Collected: 08/27/2017 Status: F Source: [place] 1:50 AM [facility] [place] TYPE CODE TESTS RESULT OUT OF RANGE REFERENCE UNITS LAB L100.1000 4.4-11.0 K/mm3 High WBC 11.4 LAB L100.1200 4.2-5.4 M/mm3 Normal RBC 5.10 LAB L100.1300 12.0-15.0 g/dl High HGB 15.4 LAB L100.1400 37-47 % Normal HCT 44.9 LAB L100.1500 81-99 fL Normal MCV 88.0 LAB L100.1600 27.0-32.0 pg Normal MCH 30.2 LAB L100.1700 32-36 g/gl Normal MCHC 34.3 LAB L100.1810 11.6-14.6 % Normal RDW CV 14.1 LAB L100.1820 35.1-43.9 fl High RDW SD 45.3 LAB L100.1900 150-450 K/mm3 Normal PLT 251 LAB L100.2000 6.2-12.0 fl Normal MPV 9.1 LAB L100.2100 47-70 % Normal NEUT% 58.3 LAB L100.2200 19-41 % Normal LY% 32.1 LAB L100.2300 0-10 % Normal MONO% 5.9 LAB L100.2400 0-5 % Normal EO% 3.2 LAB L100.2500 0-1 % Normal BASO% 0.2 LAB L100.2550 0.0-0.9 % Normal IM GRAN % 0.300 Result Comment: IG% - Immature Granulocytes (promyelocytes, myelocytes and metamyelocytes) > 1% indicates that a LEFT SHIFT is Present. LAB L100.2620 2.0-7.7 X10 3/uL Normal Absolute Neut 6.6 LAB L100.2720 0.83-4.51 X10 3/ul Normal Absolute Lymph 3.65 Performed By: #### L100.0100 #### [facility] [address] [place] [address], [id number] PROTHROMBIN TIME W/INR Collected: 08/27/2017 Status: F Source: [place] 1:50 AM [facility] [place] TYPE CODE TESTS RESULT OUT OF RANGE REFERENCE UNITS LAB L300.4150 11.7-14.9 SECONDS Normal PROTIME 12.8 LAB L300.4200 Normal INR 1.0 Performed By: #### L300.3900, L300.4310 #### [facility] [address] [place], [place], [id number] PARTIAL THROMBOPLAST Collected: 08/27/2017 Status: F Source: [place] TIME 1:50 AM [facility] [place] TYPE CODE TESTS RESULT OUT OF RANGE REFERENCE UNITS LAB L300.4310 24.1-36.2 Seconds Normal PTT 32.9 Performed By: #### L300.3900, L300.4310 #### [facility] [address] [place], [address] COMPREHENSIVE METABOLIC Collected: 08/27/2017 Status: F Source: [place] [facility] 1:50 AM [facility] [place] TYPE CODE TESTS RESULT OUT OF RANGE REFERENCE UNITS LAB L501.0100 74-106 mg/dL Normal GLU 89 Result Comment: Please note revised GLUCOSE reference range effective 2017. LAB L501.1000 7-18 mg/dL Normal BUN 14 LAB L501.1100 0.55-1.02 mg/dL Normal CREAT,SERUM 0.81 Result Comment: The validity of the calculated GFR AND GFRAA in patients over 70 years has not been determined. Clinical correlation is essential. LAB L501.1110 >60 mL/min Normal EST GFR 79 Result Comment: Non- GFR Calc LAB L501.1115 >60 mL/min Normal EST GFR - AA 95 Result Comment: GFR Calc LAB L501.1255 ml/min Normal Estimated CRCL 64.26 LAB L501.1300 10-20 RATIO Normal BUN/CRE 17.2 LAB L501.1500 6.4-8. g/dL Normal 2 T PROT 7.3 LAB L501.1800 3.2-5. g/dL Normal 0 ALB 3.4 LAB L501.1950 2.2-4. g/dL Normal 2 GLOB 3.9 LAB L501.2000 0.9-2. RATIO Normal 4 A/G 0.9 LAB L501.2200 8.5-10 mg/dL Normal .1 CA 9.0 LAB L501.4100 15-37 U/L Normal AST 16 LAB L501.4305 45-117 U/L Normal ALK P 112 LAB L501.4405 13-56 U/L Normal ALT 40 LAB L501.4600 0.20-1 mg/dL Normal .00 T BILI 0.20 LAB L501.5300 136-14 mmol/L Normal 5 NA 145 LAB L501.5600 3.5-5. mmol/L Normal 1 K 3.8 LAB L501.5900 98-107 mmol/L High CL 114 LAB L501.6100 21.0-3 mmol/L Normal 2.0 CO2 26.0 LAB L501.6200 5-15 Normal GAP 5 Performed By: #### L500.4050 #### [facility] [address] [place], [address] ACETAMINOPHEN (TYLENOL) Collected: 08/27/2017 Status: F Source: [place] 1:50 AM [facility] [place] TYPE CODE TESTS RESULT OUT OF REFERENCE UNITS RANGE LAB L501.8400 10.0-30.0 ug/mL ACETAMINOPHEN Low 4.9 Performed By: #### L501.8400 #### [facility] [address] [place], [address] LIPASE Collected: 08/27/2017 Status: F Source: [place] 1:50 AM [facility] [place] TYPE CODE TESTS RESULT OUT OF RANGE REFERENCE UNITS LAB L501.2450 73-393 U/L Normal LIPASE 136 Performed By: #### L501.2450 #### [facility] [address] [place], [address] EMERGENCY REPORT Observed: 08/25/2017 Status: F Source: [facility] 3:56 AM [facility] [place] REPORT NAME ACCOUNT SEX AGE ADMIT DISCHARGE PT MED. RECORD# NUMBER DATE DATE TYPE LEEANN [id number] F 52 08/23/17 08/23/17 3 RAMSES Rodríguez [id number] ROOM: ER DATE OF : 1965 DICTATING PHYSICIAN: Jacky Hensley HISTORY OF PRESENT ILLNESS: The patient came in. Her friend called the squad on her because she took ten Tylenol 500 mg for severe pain in her hip. She said she had x-rays which were unremarkable and a CT. She still has pain. She cannot tolerate it and presents to the Emergency Department because the squad brought her here. She denies any chest pain or shortness of breath. She denies nausea or vomiting. PAST MEDICAL HISTORY: She does have a history of anxiety, stomach cancer, and sick sinus syndrome. PAST SURGICAL HISTORY: She has had fusion of L4-L5 and hysterectomy. SOCIAL HISTORY: She does not smoke or drink. REVIEW OF SYSTEMS: Ten systems were reviewed and were negative except as mentioned above. PHYSICAL EXAMINATION: She is an awake, alert and oriented female in no acute distress. Head is normocephalic, atraumatic. Eyes: Pupils are equal, round and reactive to light. Extraocular muscles are intact. Nares are patent. Throat has adequate oral moisture. Uvula is midline. Neck is supple without petechiae or rash. Heart rate is regular without murmur. S1 is equal to S2. No S3 or S4 appreciated. Lungs are clear to auscultation bilaterally. No rales, rhonchi or retractions. Abdomen is soft, nontender and nondistended. Skin is warm and dry. DIAGNOSTIC DATA: We did do an acetaminophen level in the Emergency Room, and the level was elevated at 40. Repeat was 22. The patient had an EKG, which showed a rate of 59, normal axis and no ST elevation or depression. EMERGENCY DEPARTMENT COURSE AND TREATMENT: She is adamant she wants to go home. Initially she was going to sign out against medical advice, saying she is leaving at this time anyway. She was given Nubain. I will write her for 5 OxyContin for pain. OARRS was reviewed. She will be discharged in stable condition. DIAGNOSIS: Right hip pain and rib pain as well as acetaminophen use. Page 1 of 2 RAMSES BRADSHAW Emergency Room Report Dictated By: Jacky Hensley DO 08/24/17 00:10 JOB #: [id number] Transcribed By: nathalie 08/24/17 08:15 Electronically signed by: ANAI Hensley D.O. 08/25/17 03:55 Page 2 of 2 RAMSES BRADSHAW Emergency Room Report ACETAMINOPHEN Collected: 08/23/2017 Status: F Source: [place] 9:48 PM [facility] [place] TYPE CODE TESTS RESULT OUT OF REFERENCE UNITS RANGE LAB ACETAMINOP 10.0 - 20.0 ug/mL HEN(LOINC) ACETAMINOPHEN High Alert 22.7 Result Comment: { CALLED TO ER AT 2220 RA 2218 { READ BACK BY DANETTE LOCKHART Performed By: #### [id number] #### [facility],[address] [place] [address] URINALYSIS Collected: 08/23/2017 Status: F Source: [place] 7:55 PM [facility] [place] REPOSITORY TYPE CODE TESTS RESULT OUT OF REFERENCE UNITS RANGE LAB URINALYSIS (LOINC) URINALYSIS Result Comment: URINALYSIS LAB Specimen Type(LOINC) Specimen Type UNSPECIFIED LAB Color(LOINC) NORMAL: YELLOW Color YELLOW LAB Clarity(LOINC) NORMAL: CLEAR Clarity clear LAB ph(LOINC) NORMAL: 5.0-8.0 ph 5 LAB Protein(LOINC) NORMAL: NEGATIVE Protein NEG LAB Glucose(LOINC) NORMAL: NORMAL Glucose NORM LAB Ketone(LOINC) NORMAL: NEGATIVE Ketone NEG LAB Bilirubin(LOINC) NORMAL: NEGATIVE NEG Bilirubin LAB Blood(LOINC) NORMAL: NEGATIVE Blood NEG LAB Urobilinog(LOINC NORMAL: ) NORMAL NORM Urobilinog LAB Sp NORMAL: [place](LOINC) 1.010-1.030 Sp 1.010 [place] LAB Nitrite(LOINC) NORMAL: NEGATIVE Nitrite NEG LAB Leukocytes(LOINC NORMAL: ) NEGATIVE 25 Abnormal Leukocytes LAB Microscopic(LOIN C) SEE Microscopic BELOW Result Comment: MICROSCOPIC LAB Wbc(LOINC) 0-5/hpf Wbc 1-5 LAB Rbc(LOINC) 0-3/hpf Rbc NONE LAB Casts(LOINC) Casts NONE LAB Crystals(LOINC) Crystals NONE LAB Amorphous(LOINC) NONE Amorphous LAB Bacteria(LOINC) Bacteria 1+ LAB Epi Cells(LOINC) Epi Cells MODERATE LAB Mucous(LOINC) Mucous TRACE LAB Yeast(LOINC) Yeast NONE Performed By: #### [id number] #### [facility],[address] [place] [address] DRUG SCREEN URINE Collected: 08/23/2017 Status: F Source: [facility] MEDIC 7:55 PM [facility] [place] REPOSITORY TYPE CODE TESTS RESULT OUT OF REFERENCE UNITS RANGE LAB DRUG SCREEN URINE MEDIC(LOINC) DRUG SCREEN URINE MEDIC Result Comment: DRUG SCREEN - URINE LAB PCP(LOINC) PCP NEG LAB COCAINE(LOINC) COCAINE NEG LAB OPIATES(LOINC) OPIATES POS LAB AMPHETAMINES(LOINC ) AMPHETAMINES NEG LAB B-DIAZEPINES(LOINC ) B-DIAZEPINES POS LAB TCA(LOINC) TCA NEG LAB METHADONE(LOINC) METHADONE NEG LAB BARBITURATES(LOINC ) BARBITURATES NEG LAB THC(LOINC) THC NEG Result Comment: PATIENTS RECEIVING PROTON PUMP INHIBITORS MAY DEMONSTRATE FALSE POSITIVE THC/CANNABINOID RESULTS. AN ALTERNATIVE CONFIRMATORY METHOD SHOULD BE CONSIDERED TO VERIFY POSITIVE RESULTS. Performed By: #### [id number] #### [facility],[address] [place] [address] CBC Collected: 08/23/2017 Status: F Source: [place] 7:50 PM [facility] [place] REPOSITORY TYPE CODE TESTS RESULT OUT OF RANGE REFERENCE UNITS LAB CBC(LOINC) CBC Result Comment: CBC-COMPLETE BLOOD COUNT LAB WBC(LOINC) 4.5 - 10.8 x 10EE3/UL WBC High 11.2 LAB RBC(LOINC) 4.10 - x 10EE6/UL 5.30 RBC 4.76 LAB HEMOGLOBIN(LOINC 12.0 - g/dl ) 16.0 HEMOGLOBIN 14.4 LAB HEMATOCRIT(LOINC 34.0 - % ) 46.0 HEMATOCRIT 41.7 LAB MCV(LOINC) 80 - 99 fl MCV 88 LAB MCH(LOINC) 27 - 33 pg MCH 30 LAB MCHC(LOINC) 32 - 36 X10 3 MCHC 34 LAB RDW/CV(LOINC) 12.0 - % 15.6 RDW/CV 15.0 LAB PLATELET(LOINC) 150 - 450 x10EE3/UL PLATELET 238 LAB MPV(LOINC) 6.6 - 10.5 fl MPV 7.7 Result Comment: AUTOMATED DIFFERENTIAL LAB NEUT %(LOINC) 46.0 - 76.0 % NEUT % 66.5 LAB LYMPH %(LOINC) 20.0 - 45.0 % LYMPH % 25.6 LAB MONOS %(LOINC) 0.0 - 10.0 % MONOS % 4.7 LAB EO %(LOINC) 0.0 - 7.0 % EO % 3.0 LAB BASO %(LOINC) 0.0 - 2.0 % BASO % 0.2 LAB Lymph #(LOINC) 0.80 - 2.80 x10EE3/U L Lymph # High 2.90 LAB Neut #(LOINC) 1.50 - 7.10 x10EE3/U L Neut # High 7.40 LAB [place] #(LOINC) 0.20 - 1.00 x10EE3/U L [place] # 0.50 LAB EO #(LOINC) 0.00 - 0.50 x10EE3/U L EO # 0.30 LAB Baso #(LOINC) 0.00 - 0.10 x10EE3/U L Baso # 0.00 LAB MANUAL DIFF(LOINC) MANUAL DIFF N/A LAB MORPHOLOGY(LOINC ) MORPHOLOGY N/A Result Comment: {CD] Performed By: #### [id number] #### [place] [id number] LIPASE Collected: 08/23/2017 Status: F Source: [facility] 7:50 PM [facility] [place] REPOSITORY TYPE CODE TESTS RESULT OUT OF REFERENCE UNITS RANGE LAB LIPASE(LOIN 18.0 - 51.0 U/L C) LIPASE 41.0 Performed By: #### [id number] #### [place] [id number] CMP WITH EGFR Collected: 08/23/2017 Status: F Source: [facility] 7:50 PM [facility] [place] REPOSITORY TYPE CODE TESTS RESULT OUT OF RANGE REFERENCE UNITS LAB CMP with eGFR(INC) CMP with eGFR Result Comment: COMPREHENSIVE METABOLIC PANEL LAB SODIUM(LOINC) 136 - 145 mmol/l SODIUM 138 LAB POTASSIUM(LOINC) 3.5 - 5.1 mmol/L POTASSIUM 3.7 LAB CHLORIDE(LOINC) 98 - 107 mmol/L CHLORIDE High 116 LAB CO2(LOINC) 21.0 - mmol/L 31.0 CO2 24.7 LAB GLUCOSE(LOINC) 74 - 106 mg/dl GLUCOSE High 116 LAB BUN(LOINC) 6 - 20 mg/dl BUN 17 LAB CREATININE(LOINC) 0.6 - 1.2 mg/dl CREATININE 0.8 LAB AST/SGOT(LOINC) 13 - 39 U/L AST/SGOT 33 LAB ALK PHOS(LOINC) 38 - 126 U/L ALK PHOS 98 LAB CALCIUM(LOINC) 8.6 - mg/dl 10.2 CALCIUM 9.0 LAB TOTAL 6.4 - 8.3 g/dl PROTEIN(LOINC) TOTAL Low PROTEIN 6.3 LAB ALBUMIN(LOINC) 3.4 - 4.8 g/dL ALBUMIN 3.7 LAB GLOBULIN(LOINC) 1.5 - 3.8 G/DL GLOBULIN 2.6 LAB A/G RATIO(LOINC) 0.9 - 1.6 A/G RATIO 1.4 LAB TOTAL BILI(LOINC) 0.0 - 1.5 mg/dl TOTAL BILI 0.1 LAB B/C RATIO(LOINC) 0 - 30 ratio B/C RATIO 21 LAB ALT/SGPT(LOINC) 8 - 35 U/L ALT/SGPT High 70 LAB ANION GAP(LOINC) 10 - 20 mmol/L ANION Low GAP 1 LAB AGE(LOINC) years AGE 52 LAB eGFR(LOINC) 60 - 999 ML/MINUTE eGFR >60 LAB eGFR(AA)(LOINC) 60 - 999 ML/MINUTE eGFR(AA) >60 Result Comment: ACCORDING TO THE NATIONAL KIDNEY DISEASE EDUCATION PROGRAM(NKDE), A NORMAL eGFR IS A VALUE GREATER THAN OR EQUAL TO 60 ML/MIN/1.73 SQ METERS. CHRONIC KIDNEY DISEASE: <60mL/MIN/1.73 SQ METERS KIDNEY FAILURE: <15mL/MIN/1.73 SQ METERS THIS TEST SHOULD ONLY BE USED FOR PATIENTS 18 YEARS OF AGE AND OLDER. Performed By: #### [id number] #### [place] [id number] ACETAMINOPHEN Collected: 08/23/2017 Status: F Source: [facility] 7:50 PM [facility] [place] REPOSITORY TYPE CODE TESTS RESULT OUT OF REFERENCE UNITS RANGE LAB ACETAMINOP 10.0 - 20.0 ug/mL HEN(LOINC) ACETAMINOPHEN High Alert 40.6 Result Comment: { CALLED TO ER AT 2057 { READ BACK BY ROBYN LOCKHART Performed By: #### [id number] #### [place] [id number] EMERGENCY DEPARTMENT Observed: 08/22/2017 Status: F Source: [place] SUMMARY 11:18 PM [facility] [place] [facility] Medical Records Department [address] [place] [id number] Emergency Department Summary 08/22/17 1633 MR#: [id number] Acct: [id number] Name: RAMSES BRADSHAW Rep #: [id number] : 1965 52 From: Debi Amaya MD PCP: Gee Leon MD Status: DEP ER - ER Visit Summary Date of Service: 08/22/17 Chief Complaint: Fall History of Present Illness: The patient is a 52 F presenting after fall. Patient states on August 13 she was walking a dog and had a mechanical fall falling onto her right side. She was seen by her primary care physician following that. She presents today due to persistent pain. She did not hit her head or lose consciousness. She is not on anticoagulants. She has pain in the right hip, right abdomen, and right lower chest. She is able to ambulate. Physical Examination: Vitals are stable. Patient is afebrile. Alert no acute distress. HEENT exam is unremarkable. Neck is supple. Lungs are clear and equal bilaterally. Right lower chest wall tenderness, no crepitus Heart is regular rate and rhythm. Abdomen is soft right upper quadrant tenderness, no rebound or guarding Extremities lateral right hip tenderness with painful range of motion. Skin is warm and dry. No focal neurologic deficit. Remainder of exam is unremarkable. Emergency Department Course and Treatment: Patient given morphine, Zofran. X-ray of the right hip and right rib series shows no acute process. CT abdomen pelvis with IV only contrast shows no acute process. While in the emergency department patient began to complain of chest pain. EKG is sinus bradycardia rate of 58. This started after she had morphine. She was given Dilaudid. She was given aspirin. CBC chemistries unremarkable. Troponin is negative. Due to the onset of her pain, recommended repeat troponin. I had a long discussion with the patient regarding the importance of this. She stated she understood and was willing to stay for repeat blood test. She later mentioned that it is not atypical for her to have chest pain. She eloped from the emergency department prior to completion of her evaluation. Disposition: Elopement Impression: Right hip pain, chest wall pain status post mechanical fall This note was generated with [employer] dictation software. It may contain incorrect words, spelling, and punctuation that were not noted in review of the chart prior to signing ED Disposition - Plan for ED Patient: Disposition: Against Medical Advice Chief Complaint: Fall Referrals: Michael Leon MD [Primary Care Provider] - What to do if you have Problems For any increased pain, shortness of breath, bleeding, nausea or vomiting, chest pain, or any unexpected problems, contact your Primary Care Provider. Call [facility] ([phone]) or report to the closest Emergency Room. Call 911 if necessary. 08/22/17 8870 <Electronically signed by Debi Amaya MD> Date Debi Carbajal Signature (If Indicated): Date CC: Gee Leon MD CBC W/DIFF, AUTOMATED Collected: 08/22/2017 Status: F Source: [place] 7:45 PM [facility] [place] CODE TESTS RESULT OUT OF RANGE REFERENCE UNITS LAB L100.1000 4.4-11.0 K/mm3 High WBC 11.2 LAB L100.1200 4.2-5.4 M/mm3 Normal RBC 5.15 LAB L100.1300 12.0-15.0 g/dl High HGB 15.5 LAB L100.1400 37-47 % Normal HCT 46.2 LAB L100.1500 81-99 fL Normal MCV 89.7 LAB L100.1600 27.0-32.0 pg Normal MCH 30.1 LAB L100.1700 32-36 g/gl Normal MCHC 33.5 LAB L100.1810 11.6-14.6 % Normal RDW CV 14.3 LAB L100.1820 35.1-43.9 fl High RDW SD 46.7 LAB L100.1900 150-450 K/mm3 Normal PLT 260 LAB L100.2000 6.2-12.0 fl Normal MPV 10.1 LAB L100.2100 47-70 % Normal NEUT% 65.6 LAB L100.2200 19-41 % Normal LY% 26.9 LAB L100.2300 0-10 % Normal MONO% 5.2 LAB L100.2400 0-5 % Normal EO% 2.0 LAB L100.2500 0-1 % Normal BASO% 0.2 LAB L100.2550 0.0-0.9 % Normal IM GRAN % 0.100 Result Comment: IG% - Immature Granulocytes (promyelocytes, myelocytes and metamyelocytes) > 1% indicates that a LEFT SHIFT is Present. LAB L100.2620 2.0-7.7 X10 3/uL Normal Absolute Neut 7.4 LAB L100.2720 0.83-4.51 X10 3/ul Normal Absolute Lymph 3.02 Performed By: #### L100.0100 #### [facility] [address] [place], [place], [id number] BASIC METABOLIC Collected: 08/22/2017 Status: F Source: [place] PROFILE ([place]) 7:45 PM [facility] [place] CODE TESTS RESULT OUT OF RANGE REFERENCE UNITS LAB L501.0100 74-106 mg/dL Low GLU 72 Result Comment: Please note revised GLUCOSE reference range effective 2017. LAB L501.1000 7-18 mg/dL Normal BUN 17 LAB L501.1100 0.55-1.02 mg/dL Normal CREAT,SERUM 0.86 Result Comment: The validity of the calculated GFR AND GFRAA in patients over 70 years has not been determined. Clinical correlation is essential. LAB L501.1110 >60 mL/min Normal EST GFR 74 Result Comment: Non- GFR Calc LAB L501.1115 >60 mL/min Normal EST GFR - AA 89 Result Comment: GFR Calc LAB L501.1255 ml/min Normal Estimated CRCL 60.52 LAB L501.1300 10-20 RATIO Normal BUN/CRE 19.8 LAB L501.2200 8.5-10 mg/dL Normal .1 CA 9.3 LAB L501.5300 136-14 mmol/L High 5 NA 146 LAB L501.5600 3.5-5. mmol/L Normal 1 K 3.7 LAB L501.5900 98-107 mmol/L High CL 110 LAB L501.6100 21.0-3 mmol/L Normal 2.0 CO2 28.0 LAB L501.6200 5-15 Normal GAP 8 Performed By: #### L500.2500, L501.4010 #### [facility] [address] [place], [address] TROPONIN-I Collected: 08/22/2017 Status: F Source: [place] 7:45 PM [facility] [place] CODE TESTS RESULT OUT OF RANGE REFERENCE UNITS LAB L501.4010 <0.045 ng/mL Normal < 0.015 TROPONIN-I Result Comment: TROPONIN-I EXPECTED VALUES <0.045 Negative 0.045 - 0.590 Consistent with Cardiac Damage > OR = 0.600 Critical Value Not every elevated troponin is indicative of OH. These values should be used with clinical judgement in examining the patient's clinical picture for diagnosis. To establish a diagnosis of OH versus myocardial injury, there must be a demonstrated rise and/or fall in the troponin values, in addition to ischemic symptoms, EKG changes, new regional wall motion abnormality, and/or angiographical evidence. PLEASE NOTE: REFERENCE RANGES EDITED 17 Performed By: #### L500.2500, L501.4010 #### [facility] [address] [place], [address] ABDOMEN/PELVIS W IV CONT Observed: 08/22/2017 Status: F Source: [facility] 4:32 PM [facility] [place] [facility] Imaging Services [address] [place] [address] Abdomen/Pelvis W IV Cont ONLY MR#: [id number] Acct: [id number] Name: RAMSES BRADSHAW Rep #: [id number] : 1965 F 52 From: Mainor Trujillo MD PCP: Gee Leon MD Status: REG ER Study: Abdomen/Pelvis W IV Cont ONLY Date of Exam: 08/22/17 Exam# [id number] Ordering Dr: Debi Amaya MD STUDY: CT ABDOMEN AND PELVIS WITH CONTRAST REASON FOR EXAM: Female, 52 years old. Trauma RADIATION DOSAGE (If Supplied By Facility): CTDIvol = ( 16.51 ) mGy, DLP = ( 1073.71 ) mGycm TECHNIQUE: Transaxial images were obtained from the dome of the diaphragm to the symphysis pubis without oral contrast. 100 ml of Isovue 300 contrast was administered. Sagittal and coronal images were reconstructed. Individualized dose optimization techniques were used for this CT. COMPARISON: July 04, 2010. Report only FINDINGS: There is minor atelectasis within the dependent portion of the lungs. The visualized portions of the heart are within normal limits. Nonspecific fatty infiltration of liver without mass or bile duct dilatation status post cholecystectomy.. Normal spleen. Normal pancreas. Normal bilateral adrenal glands. Normal right kidney. Normal left kidney. There are postsurgical changes of the stomach. Normal small intestine. Diverticular disease of the distal descending and sigmoid colon without evidence for acute diverticulitis. No evidence for acute appendicitis Minor atherosclerotic changes of the aorta without evidence for aneurysm Normal inferior vena cava. Normal retroperitoneum. Nonspecific diffuse distention of the bladder. Uterus not visualized consistent with hysterectomy Normal abdominal wall. Status post bilateral laminectomy at L4-5 and L5-S1 posterior fusion No acute fractures identified CT/Abdomen/Pelvis W IV Cont ONLY IMPRESSION: Postsurgical changes status post cholecystectomy and hysterectomy.. Diverticular disease of the colon without evidence for acute diverticulitis. No acute abnormalities Electronically Signed: Mainor Trujillo MD at 17:58 EDT , Service support , CC: Debi Amaya MD; Gee Leon MD Cell Feed Department Supervisor: Signed HIP 2-3 VIEWS WITH Observed: 08/22/2017 Status: F Source: [place] 4:32 PM [facility] [place] [facility] Imaging Services [address] [place] [address] Hip 2-3 Views with Pelvis MR#: [id number] Acct: [id number] Name: RAMSES BRADSHAW Rep #: [id number] : 1965 F 52 From: Mainor Trujillo MD PCP: Gee Leon MD Status: REG ER Study: Hip 2-3 Views with Pelvis Date of Exam: 08/22/17 Exam# [id number] Ordering Dr: Debi Amaya MD STUDY: X-RAY - PELVIS AND RIGHT HIP REASON FOR EXAM: Female, 52 years old. Trauma TECHNIQUE: Radiological exam, hip, unilateral, with pelvis when performed; 2 or 3 views. COMPARISON: None. FINDINGS: There is a non-specific bowel gas pattern. Normal visualized soft tissue structures. Normal bilateral iliac wings, sacroiliac joints and visualized sacrum. Normal bilateral superior and inferior pubic rami. Normal pubic symphysis. Normal bilateral ischial tuberosities. Normal visualized femoral head. Normal acetabulum. Normal hip joint. RAD/Hip 2-3 Views with Pelvis IMPRESSION: Normal x-ray examination of the pelvis and hip. Electronically Signed: Mainor Trujillo MD at 18:17 EDT , Service support , CC: Debi Amaya MD; Gee Leon MD Cell Feed Department Supervisor: Signed RIBS UNI MIN 3V Observed: 08/22/2017 Status: F Source: [place] W/PA CHEST 4:32 PM [facility] [place] [facility] Imaging Services [address] [place] [address] Ribs Uni Min 3V w/PA Chest MR#: [id number] Acct: [id number] Name: RAMSES BRADSHAW Rep #: [id number] : 1965 F 52 From: Mainor Trujillo MD PCP: Gee Leon MD Status: REG ER Study: Ribs Uni Min 3V w/PA Chest Date of Exam: 08/22/17 Exam# [id number] Ordering Dr: Debi Amaya MD STUDY: X-RAY - UNILATERAL RIBS ( RIGHT ) WITH CHEST REASON FOR EXAM: Female, 52 years old. Trauma TECHNIQUE - RIBS: 4 view(s) of the ribs. TECHNIQUE - CHEST: PA COMPARISON: None. FINDINGS - RIBS: Normal visualized ribs without a demonstrated fracture. FINDINGS - CHEST: Diminished inspiratory effort is seen with minor basilar atelectasis.. There is no demonstrated pleural abnormality. Pacer noted on the left with electrodes in satisfactory position. Normal size heart. Normal mediastinum and arhcana. Normal visualized pulmonary arteries. Normal visualized aortic arch and descending thoracic aorta. Normal visualized thoracic spine. Normal visualized ribs, clavicles, and shoulders. There is no demonstrated abnormality of the visualized soft tissue structures of the upper abdomen. RAD/Ribs Uni Min 3V w/PA Chest IMPRESSION: RIBS: Normal x-ray examination of the ribs. CHEST: Decreased inspiratory effort. No acute disease. Electronically Signed: Mainor Trujillo MD at 18:19 EDT , Service support , CC: Debi Amaya MD; Gee Leon MD Cell Feed Department Supervisor: Signed OBSOLETE Observed: 07/25/2017 Status: COMPLETED Source: [place] 12:00 AM CLIN[facility] OTHER CAMPUS REPOSITORY Refill (AGGENS1) RAMSES BRADSHAW ([id number]) 1965 F Date Time Provider Department 07/25/17 GIOVANNI HERNÁNDEZ AGGENS1 During your visit today, we recorded the following information about you: Allergies As of Date: 07/25/2017 Noted Allergy Reaction ASA (SALICYLATES) 11/14/2004 8 - GI Upset ERYTHROMYCIN 11/14/2004 11 - Vomiting Comments: Vomiting AND diarrhea IBUPROFEN 11/14/2004 8 - GI Upset LATEX 06/30/2010 14 - Other: See Comments Comments: Pt reports reaction to Latex, adhesives, EKG stickers w/ skin irritation at times...causes redness AND blisters NSAIDS (NON-STEROIDAL ANTI-INFLAM*02/23/2014 6 - Diarrhea 11 - Vomiting Date Reviewed: 07/02/2017 Reviewed by: Heike (Emilie) May - Fully Assessed Reason for Visit: Refill Request [94] Order(s):sucralfate (CARAFATE) 1 gram tabletTAKE 1 TABLET FOUR TIMES A DAY BEFORE MEALS AND AT BEDTIMEDisp: 112 tabletRfl: 0 Prescriptions as of 07/25/2017 Sig: SUCRALFATE 1 GRAM TABLET TAKE 1 TABLET FOUR TIMES A DA* OXYCODONE 5 MG TABLET Take 1 tablet by mouth every * OXYCODONE 5 MG TABLET Take 1 tablet by mouth every * LISINOPRIL 20 MG TABLET Take 1 tablet by mouth once d* OXYCODONE 5 MG TABLET Take 1 tablet by mouth every * METOPROLOL TARTRATE 25 MG TAB* OXYCODONE 5 MG TABLET Take 1 tablet by mouth every * MECLIZINE 25 MG TABLET Take 25 mg by mouth twice kaycee* OXYCODONE 5 MG TABLET Take 1 tablet by mouth every * PANTOPRAZOLE 40 MG TABLET,DEL* Take 40 mg by mouth once sidra* CHOLECALCIFEROL (VITAMIN D3) * Take 50,000 Units by mouth on* TOLTERODINE ER 4 MG CAPSULE,E* Take 4 mg by mouth once daily. ZOLPIDEM 10 MG TABLET Take 10 mg by mouth daily at * LORAZEPAM 1 MG TABLET Take 1 mg by mouth twice sidra* NITROGLYCERIN 0.4 MG SUBLINGU* Dissolve 1 tablet under the t* HYDROXYZINE PAMOATE 25 MG CAP* Take 25 mg by mouth three alo* ABILIFY ORAL Take by mouth once daily. DULOXETINE 60 MG CAPSULE,VANESA* Take 60 mg by mouth once sidra* FERROUS FUMARATE 325 MG (106 * Take 325 mg by mouth twice da* LEVOTHYROXINE 25 MCG TABLET Take 25 mcg by mouth once kaycee* OMEPRAZOLE MAGNESIUM 20 MG CA* Take 20 mg by mouth once sidra* OXYCODONE-ACETAMINOPHEN 10 MG* Take 1 tablet by mouth every * CALCIUM CARBONATE-VITAMIN D3 * Take by mouth once each week. 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] INVALID FOR* CARDIAC PACEMAKER IN SITU [Z95.0] INVALID FOR* Spinal stenosis, lumbar region, with neurogenic*INVALID FOR* Degeneration of lumbar or lumbosacral intervert*INVALID FOR* Gastric mass [K31.9] INVALID FOR* Prescriptions ordered this encounter Disp Refills Start End SUCRALFATE 1 GRAM TABLET 112 * 0 07/25/2017 Cmt: Maximum Refills Reached Sig: TAKE 1 TABLET FOUR TIMES A DAY BEFORE MEALS AND AT BEDTIME Encounter Status:Closed by GIOVANNI HERNÁNDEZ MD on 07/25/17 YESI Observed: 06/27/2017 Status: COMPLETED Source: [place] 12:00 AM CLIN[facility] OTHER CAMPUS REPOSITORY Telephone (AGCARDWST) RAMSES BRADSHAW ([id number]) 1965 F Date Time Provider Department 06/27/17 SELWYN FARFAN AGCARDWST During your visit today, we recorded the following information about you: Ketty Diaz (Deric) 06/27/2017 2:34 PM Signed Patient calling in with recent VS. 138/80 62 126/75 73 120/78 77 120/72 73 133/73 68 124/77 68 134/78 74 130/76 78 136/83 74 120/78 74 DERIC Shrestha Kenneth E 06/27/2017 2:39 PM Signed Vital signs are acceptable. Continue current medication. Let us know if blood pressure begins to go back up again MD Brian Núñez Emily (Deric) 06/27/2017 3:37 PM Signed Attempted to reach patient, phone cut out.DERIC Shrestha Emily (Deric) 06/27/2017 3:53 PM Signed Patient notified of results and provider's instructions. Patient verbalizes understanding. Ketty Diaz LPN Allergies As of Date: 06/27/2017 Noted Allergy Reaction ASA (SALICYLATES) 11/14/2004 8 - GI Upset ERYTHROMYCIN 11/14/2004 11 - Vomiting Comments: Vomiting AND diarrhea IBUPROFEN 11/14/2004 8 - GI Upset LATEX 06/30/2010 14 - Other: See Comments Comments: Pt reports reaction to Latex, adhesives, EKG stickers w/ skin irritation at times...causes redness AND blisters NSAIDS (NON-STEROIDAL ANTI-INFLAM*02/23/2014 6 - Diarrhea 11 - Vomiting Date Reviewed: 06/18/2017 Reviewed by: Giovanni Hernández - Fully Assessed Reason for Visit: Blood Pressure [15] Prescriptions as of 06/27/2017 Sig: LISINOPRIL 20 MG TABLET Take 1 tablet by mouth once d* OXYCODONE 5 MG TABLET Take 1 tablet by mouth every * X OXYCODONE 5 MG TABLET Take 1 tablet by mouth every * METOPROLOL TARTRATE 25 MG TAB* SUCRALFATE 100 MG/ML ORAL OSCAR* Take 10 mL by mouth four time* OXYCODONE 5 MG TABLET Take 1 tablet by mouth every * MECLIZINE 25 MG TABLET Take 25 mg by mouth twice kaycee* OXYCODONE 5 MG TABLET Take 1 tablet by mouth every * PANTOPRAZOLE 40 MG TABLET,DEL* Take 40 mg by mouth once sidra* CHOLECALCIFEROL (VITAMIN D3) * Take 50,000 Units by mouth on* TOLTERODINE ER 4 MG CAPSULE,E* Take 4 mg by mouth once daily. ZOLPIDEM 10 MG TABLET Take 10 mg by mouth daily at * LORAZEPAM 1 MG TABLET Take 1 mg by mouth twice sidra* NITROGLYCERIN 0.4 MG SUBLINGU* Dissolve 1 tablet under the t* HYDROXYZINE PAMOATE 25 MG CAP* Take 25 mg by mouth three alo* ABILIFY ORAL Take by mouth once daily. DULOXETINE 60 MG CAPSULE,VANESA* Take 60 mg by mouth once sidra* FERROUS FUMARATE 325 MG (106 * Take 325 mg by mouth twice da* LEVOTHYROXINE 25 MCG TABLET Take 25 mcg by mouth once kaycee* OMEPRAZOLE MAGNESIUM 20 MG CA* Take 20 mg by mouth once sdira* OXYCODONE-ACETAMINOPHEN 10 MG* Take 1 tablet by mouth every * CALCIUM CARBONATE-VITAMIN D3 * Take by mouth once each week. 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] INVALID FOR* CARDIAC PACEMAKER IN SITU [Z95.0] INVALID FOR* Spinal stenosis, lumbar region, with neurogenic*INVALID FOR* Degeneration of lumbar or lumbosacral intervert*INVALID FOR* Gastric mass [K31.9] INVALID FOR* Encounter Status:Closed by KETTY DIAZ LPN on 06/27/17 OBSOLETE Observed: 06/20/2017 Status: COMPLETED Source: [place] 12:00 AM CLINIC OTHER CAMPUS REPOSITORY Refill (AGGENS1) RAMSES BRADSHAW ([id number]) 1965 F Date Time Provider Department 06/20/17 GIOVANNI HERNÁNDEZ AGGENS1 During your visit today, we recorded the following information about you: Giovanni Hernández MD 06/20/2017 3:30 AM Signed Pt never received script. OARRS checked without evidence of fill. Will give refill of roxicodone. Giovanni Hernández MD 3:29 AM June 20, 2017 Allergies As of Date: 06/20/2017 Noted Allergy Reaction ASA (SALICYLATES) 11/14/2004 8 - GI Upset ERYTHROMYCIN 11/14/2004 11 - Vomiting Comments: Vomiting AND diarrhea IBUPROFEN 11/14/2004 8 - GI Upset LATEX 06/30/2010 14 - Other: See Comments Comments: Pt reports reaction to Latex, adhesives, EKG stickers w/ skin irritation at times...causes redness AND blisters NSAIDS (NON-STEROIDAL ANTI-INFLAM*02/23/2014 6 - Diarrhea 11 - Vomiting Date Reviewed: 06/18/2017 Reviewed by: Giovanni Hernández - Fully Assessed Reason for Visit: Refill Request [94] Primary Visit Diagnosis:Gastric mass [K31.9] Order(s):oxyCODONE IR (ROXICODONE) 5 mg immediate release tabletTake 1 tablet by mouth every 4 hours as needed for Pain for up to 7 days.Disp: 30 tabletRfl: 0 Prescriptions as of 06/20/2017 Sig: OXYCODONE 5 MG TABLET Take 1 tablet by mouth every * OXYCODONE 5 MG TABLET Take 1 tablet by mouth every * METOPROLOL TARTRATE 25 MG TAB* SUCRALFATE 100 MG/ML ORAL OSCAR* Take 10 mL by mouth four time* OXYCODONE 5 MG TABLET Take 1 tablet by mouth every * MECLIZINE 25 MG TABLET Take 25 mg by mouth twice kaycee* AMLODIPINE 5 MG TABLET Take 5 mg by mouth. OXYCODONE 5 MG TABLET Take 1 tablet by mouth every * PANTOPRAZOLE 40 MG TABLET,DEL* Take 40 mg by mouth once sidra* LISINOPRIL 20 MG TABLET Take 1 tablet by mouth twice * Patient taking differently: Take 40 mg by mouth twice kaycee* CHOLECALCIFEROL (VITAMIN D3) * Take 50,000 Units by mouth on* TOLTERODINE ER 4 MG CAPSULE,E* Take 4 mg by mouth once daily. ZOLPIDEM 10 MG TABLET Take 10 mg by mouth daily at * LORAZEPAM 1 MG TABLET Take 1 mg by mouth twice sidra* NITROGLYCERIN 0.4 MG SUBLINGU* Dissolve 1 tablet under the t* HYDROXYZINE PAMOATE 25 MG CAP* Take 25 mg by mouth three alo* ABILIFY ORAL Take by mouth once daily. DULOXETINE 60 MG CAPSULE,VANESA* Take 60 mg by mouth once sidra* FERROUS FUMARATE 325 MG (106 * Take 325 mg by mouth twice da* LEVOTHYROXINE 25 MCG TABLET Take 25 mcg by mouth once kaycee* OMEPRAZOLE MAGNESIUM 20 MG CA* Take 20 mg by mouth once sidra* OXYCODONE-ACETAMINOPHEN 10 MG* Take 1 tablet by mouth every * CALCIUM CARBONATE-VITAMIN D3 * Take by mouth once each week. 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 Encounter Status:Closed by GIOVANNI HERNÁNDEZ MD on 06/20/17 PROGRESS Observed: 06/18/2017 Status: COMPLETED Source: [place] 8:34 AM CLINIC OTHER CAMPUS REPOSITORY O ID: [id number] Author: Giovanni Hernández Service: (none) Author Type: Physician Type: Progress Notes Filed: 06/18/2017 8:36 AM Note Text: Patient referred by: SELF Patient presents with: Post-Op Visit HPI: This is a post operative visit. 51-year-old female status post laparoscopic cholecystectomy and laparoscopic partial gastrectomy for neuroendocrine tumor. She is doing much better. She has minimal pain. She has no nausea or vomiting. She is taking the Carafate slurry which is helping. She has no fevers or chills. She denies any jaundice. 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 pacemaker checked [facility] - Sick sinus syndrome (HCC) - Sleep apnea uses cpap at night PAST SURGICAL HISTORY Procedure Laterality Date - APPENDECTOMY - CARPAL TUNNEL left - HYSTERECTOMY HX - LAPAROSCOPY DIAGNOSTIC - PACEMAKER (PM) 2003 - PAST SURGICAL HISTORY OF lumbar pain injections. - [place] ANESTH,LUMBAR SPINE,CORD SURGERY 02/07/2016 L4-L5 fusion; [facility] - REVISE ULNAR NERVE AT ELBOW bilateral- with revisions FAMILY HISTORY Problem Relation Age of Onset - Multiple Sclerosis Father 26 at age 41 - Multiple Sclerosis Daughter 30 dx Mar 2016 - orthostatic hypotension [OTHER] Sister Social History Marital status: Spouse name: Years of education: 14 Number of children: 2 Social History Main Topics Smoking status: Former Smoker Packs/day: 0.50 Years: 25.00 Types: Cigarettes Quit date: 05/22/2015 Smokeless status: Never Used Comment: quit 2 years ago Alcohol use: No Drug use: No Comment: Heavy EtOH use unt2000. 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 meclizine (MOTION RELIEF, MECLIZINE,) 25 mg tab Take 25 mg by mouth twice daily as needed (Pt is allowed to take upto qid,prn). amLODIPine (NORVASC) 5 mg tablet Take [address] (PROTONIX) 40 mg tablet Take 40 mg by mouth once daily. lisinopril (PRINIVIL) 20 mg tablet Take 1 tablet by mouth twice daily. (Patient taking differently: Take 40 mg by mouth twice daily. ) cholecalciferol, Vitamin D3, (D3-50 CHOLECALCIFEROL) 50,000 unit cap capsule Take 50,000 Units by mouth once each week. tolterodine ER (DETROL LA) 4 mg 24 hr capsule Take 4 mg by mouth once daily. zolpidem (AMBIEN) 10 mg tab Take 10 mg by mouth daily at bedtime. LORazepam (ATIVAN) 1 mg tablet Take 1 mg by mouth twice daily. hydrOXYzine pamoate (VISTARIL) 25 mg capsule Take 25 mg by mouth three times daily as needed. DULoxetine (CYMBALTA) 60 mg capsule Take 60 mg by mouth once daily. Ferrous Fumarate 325 mg (106 mg iron) tab Take 325 mg by mouth twice daily. levothyroxine (LEVOTHROID) 25 mcg tablet Take 25 mcg by mouth once daily. Calcium Carbonate-Vitamin D3 (VITAMIN D-3) 180-5,000 mg-unit tab Take by mouth once each week. metoprolol tartrate (LOPRESSOR) 50 mg ORAL Tab Take one half (1/2) tablet twice daily metoprolol tartrate, short acting, (LOPRESSOR) 25 mg tablet oxyCODONE IR (ROXICODONE) 5 mg immediate release tablet Take 1 tablet by mouth every 6 hours as needed for Pain for up to 4 days. oxyCODONE IR (ROXICODONE) 5 mg immediate release tablet Take 1 tablet by mouth every 6 hours as needed for up to 7 days. nitroglycerin sublingual (NITROQUICK) 0.4 mg SL tablet Dissolve 1 tablet under the tongue as needed. FOR CHEST PAIN. IF NO RELIEF CALL 911 ARIPIPRAZOLE (ABILIFY ORAL) Take by mouth once daily. Omeprazole Magnesium 20 mg cpDR Take 20 mg by mouth once daily. oxyCODONE-acetaminophen (PERCOCET) 10-325 mg tablet Take 1 tablet by mouth every 6 hours as needed. No current facility-administered medications for this visit. ALLERGIES Allergen Reactions - Asa [Salicylates] GI Upset - Erythromycin Vomiting Vomiting AND diarrhea - Ibuprofen GI Upset - Latex Other: See Comments Pt reports reaction to Latex, adhesives, EKG stickers w/ skin irritation at times...causes redness AND blisters - Nsaids (Non-Steroid* Diarrhea, Vomiting REVIEW OF SYSTEMS: GENERAL: No weight loss, malaise or fevers GI: Negative for abdominal pain, nausea , vomiting, diarrhea, constipation and signs of jaundice Positive for none PHYSICAL EXAM: BP 122/80 Pulse 60 Ht 5' 2 (1.58m) Wt 163 lb (73.9kg) SpO2 98% BMI 29.81 kg/(m2). GENERAL APPEARANCE: Well appearing, alert, in no acute distress, well-hydrated, well nourished.. ABDOMEN: Abdomen is soft. Incisions are healing well. There are no signs of infection. NEURO: Alert, oriented x3, no asterixis, speech clear and articulate and YAÑEZ DATA: Diagnostic tests reviewed for today's visit: Pathology report reviewed Greater than 50% of the direct patient contact time was spent in counseling or coordination of care. ASSESSMENT / PLAN 1. Benign neuroendocrine tumor of stomach Pathology was reviewed. This shows a well-differentiated neuroendocrine tumor. All margins were negative. Her gallbladder showed cholesterolosis. From my standpoint she is doing well. I will see her again in 1 year. I will send her to Dr. Casas for possible EGD in 1 year. I will see her then. Giovanni Hernández MD CNOV Observed: 06/18/2017 Status: COMPLETED Source: [place] 8:00 AM [facility] REPOSITORY Office Visit (AGGENS1) RAMSES BRADSHAW ([id number]) 1965 F Date Time Provider Department 06/18/17 8:00 AM GIOVANNI HERNÁNDEZ1 During your visit today, we recorded the following information about you: Pulse Blood pressure Weight Height 60/minute 122/80 73.9 kg 1.575 m Giovanni Hernández MD 06/18/2017 8:36 AM Signed Patient referred by: SELF Patient presents with: Post-Op Visit HPI: This is a post operative visit. 51-year-old female status post laparoscopic cholecystectomy and laparoscopic partial gastrectomy for neuroendocrine tumor. She is doing much better. She has minimal pain. She has no nausea or vomiting. She is taking the Carafate slurry which is helping. She has no fevers or chills. She denies any jaundice. 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 pacemaker checked at [facility] - Sick sinus syndrome (HCC) - Sleep apnea uses cpap at night PAST SURGICAL HISTORY Procedure Laterality Date - APPENDECTOMY - CARPAL TUNNEL left - HYSTERECTOMY HX - LAPAROSCOPY DIAGNOSTIC - PACEMAKER (PM) 2003 - PAST SURGICAL HISTORY OF lumbar pain injections. - [place] ANESTH,LUMBAR SPINE,CORD SURGERY 02/07/2016 L4-L5 fusion; [facility] - REVISE ULNAR NERVE AT ELBOW bilateral- with revisions FAMILY HISTORY Problem Relation Age of Onset - Multiple Sclerosis Father 26 at age 41 - Multiple Sclerosis Daughter 30 dx Mar 2016 - orthostatic hypotension [OTHER] Sister Social History Marital status: Spouse name: Years of education: 14 Number of children: 2 Social History Main Topics Smoking status: Former Smoker Packs/day: 0.50 Years: 25.00 Types: Cigarettes Quit date: 05/22/2015 Smokeless status: Never Used Comment: quit 2 years ago Alcohol use: No Drug use: No Comment: Heavy EtOH use layla 2000. 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 meclizine (MOTION RELIEF, MECLIZINE,) 25 mg tab Take 25 mg by mouth twice daily as needed (Pt is allowed to take upto qid,prn). amLODIPine (NORVASC) 5 mg tablet Take 5 mg by mouth. pantoprazole DR (PROTONIX) 40 mg tablet Take 40 mg by mouth once daily. lisinopril (PRINIVIL) 20 mg tablet Take 1 tablet by mouth twice daily. (Patient taking differently: Take 40 mg by mouth twice daily. ) cholecalciferol, Vitamin D3, (D3-50 CHOLECALCIFEROL) 50,000 unit cap capsule Take 50,000 Units by mouth once each week. tolterodine ER (DETROL LA) 4 mg 24 hr capsule Take 4 mg by mouth once daily. zolpidem (AMBIEN) 10 mg tab Take 10 mg by mouth daily at bedtime. LORazepam (ATIVAN) 1 mg tablet Take 1 mg by mouth twice daily. hydrOXYzine pamoate (VISTARIL) 25 mg capsule Take 25 mg by mouth three times daily as needed. DULoxetine (CYMBALTA) 60 mg capsule Take 60 mg by mouth once daily. Ferrous Fumarate 325 mg (106 mg iron) tab Take 325 mg by mouth twice daily. levothyroxine (LEVOTHROID) 25 mcg tablet Take 25 mcg by mouth once daily. Calcium Carbonate-Vitamin D3 (VITAMIN D-3) 180-5,000 mg-unit tab Take by mouth once each week. metoprolol tartrate (LOPRESSOR) 50 mg ORAL Tab Take one half (1/2) tablet twice daily metoprolol tartrate, short acting, (LOPRESSOR) 25 mg tablet oxyCODONE IR (ROXICODONE) 5 mg immediate release tablet Take 1 tablet by mouth every 6 hours as needed for Pain for up to 4 days. oxyCODONE IR (ROXICODONE) 5 mg immediate release tablet Take 1 tablet by mouth every 6 hours as needed for up to 7 days. nitroglycerin sublingual (NITROQUICK) 0.4 mg SL tablet Dissolve 1 tablet under the tongue as needed. FOR CHEST PAIN. IF NO RELIEF CALL 911 ARIPIPRAZOLE (ABILIFY ORAL) Take by mouth once daily. Omeprazole Magnesium 20 mg cpDR Take 20 mg by mouth once daily. oxyCODONE-acetaminophen (PERCOCET) 10-325 mg tablet Take 1 tablet by mouth every 6 hours as needed. No current facility-administered medications for this visit. ALLERGIES Allergen Reactions - Asa [Salicylates] GI Upset - Erythromycin Vomiting Vomiting ANDamp; diarrhea - Ibuprofen GI Upset - Latex Other: See Comments Pt reports reaction to Latex, adhesives, EKG stickers w/ skin irritation at times...causes redness ANDamp; blisters - Nsaids (Non-Steroid* Diarrhea, Vomiting REVIEW OF SYSTEMS: GENERAL: No weight loss, malaise or fevers GI: Negative for abdominal pain, nausea , vomiting, diarrhea, constipation and signs of jaundice Positive for none PHYSICAL EXAM: BP 122/80 Pulse 60 Ht 5' 2ANDquot; (1.58m) Wt 163 lb (73.9kg) SpO2 98% BMI 29.81 kg/(m2). GENERAL APPEARANCE: Well appearing, alert, in no acute distress, well-hydrated, well nourished.. ABDOMEN: Abdomen is soft. Incisions are healing well. There are no signs of infection. NEURO: Alert, oriented x3, no asterixis, speech clear and articulate and YAÑEZ DATA: Diagnostic tests reviewed for today's visit: Pathology report reviewed Greater than 50% of the direct patient contact time was spent in counseling or coordination of care. ASSESSMENT / PLAN 1. Benign neuroendocrine tumor of stomach Pathology was reviewed. This shows a well-differentiated neuroendocrine tumor. All margins were negative. Her gallbladder showed cholesterolosis. From my standpoint she is doing well. I will see her again in 1 year. I will send her to Dr. Casas for possible EGD in 1 year. I will see her then. Giovanni Hernández MD Referring Provider: SELF [200] Allergies As of Date: 06/18/2017 Noted Allergy Reaction ASA (SALICYLATES) 11/14/2004 8 - GI Upset ERYTHROMYCIN 11/14/2004 11 - Vomiting Comments: Vomiting AND diarrhea IBUPROFEN 11/14/2004 8 - GI Upset LATEX 06/30/2010 14 - Other: See Comments Comments: Pt reports reaction to Latex, adhesives, EKG stickers w/ skin irritation at times...causes redness AND blisters NSAIDS (NON-STEROIDAL ANTI-INFLAM*02/23/2014 6 - Diarrhea 11 - Vomiting Date Reviewed: 06/18/2017 Reviewed by: Giovanni Hernández - Fully Assessed Reason for Visit: Post-Op Visit [1236] Primary Visit Diagnosis:Benign neuroendocrine tumor of stomach [D3A.092] Prescriptions as of 06/18/2017 Sig: SUCRALFATE 100 MG/ML ORAL OSCAR* Take 10 mL by mouth four time* MECLIZINE 25 MG TABLET Take 25 mg by mouth twice kaycee* AMLODIPINE 5 MG TABLET Take 5 mg by mouth. PANTOPRAZOLE 40 MG TABLET,DEL* Take 40 mg by mouth once sidra* LISINOPRIL 20 MG TABLET Take 1 tablet by mouth twice * Patient taking differently: Take 40 mg by mouth twice kaycee* CHOLECALCIFEROL (VITAMIN D3) * Take 50,000 Units by mouth on* TOLTERODINE ER 4 MG CAPSULE,E* Take 4 mg by mouth once daily. ZOLPIDEM 10 MG TABLET Take 10 mg by mouth daily at * LORAZEPAM 1 MG TABLET Take 1 mg by mouth twice sidra* HYDROXYZINE PAMOATE 25 MG CAP* Take 25 mg by mouth three alo* DULOXETINE 60 MG CAPSULE,VANESA* Take 60 mg by mouth once sidra* FERROUS FUMARATE 325 MG (106 * Take 325 mg by mouth twice da* LEVOTHYROXINE 25 MCG TABLET Take 25 mcg by mouth once kaycee* CALCIUM CARBONATE-VITAMIN D3 * Take by mouth once each week. * LOPRESSOR 50 MG TABLET Take one half (1/2) tablet tw* METOPROLOL TARTRATE 25 MG TAB* OXYCODONE 5 MG TABLET Take 1 tablet by mouth every * OXYCODONE 5 MG TABLET Take 1 tablet by mouth every * NITROGLYCERIN 0.4 MG SUBLINGU* Dissolve 1 tablet under the t* ABILIFY ORAL Take by mouth once daily. OMEPRAZOLE MAGNESIUM 20 MG CA* Take 20 mg by mouth once sidra* OXYCODONE-ACETAMINOPHEN 10 MG* Take 1 tablet by mouth every * Medication notes this encounter METOPROLOL TARTRATE 25 MG TABLET >> Pily Braxton 06/18/2017 8:21 AM >> PILY GEE MA Jun 18, 2017 8:21 AM Received from: External Pharmacy Problem List As Of Date 06/18/2017 Noted Resolved ORTHOSTATIC HYPOTENSION [I95.1] INVALID FOR*08/15/2006 CARBUNCLE NOS [L02.92, L02.93] INVALID FOR* Syncope and collapse [R55] INVALID FOR*12/13/2015 SINOATRIAL NODE DYSFUNCT [I49.5] INVALID FOR* CARDIAC PACEMAKER IN SITU [Z95.0] INVALID FOR* Spinal stenosis, lumbar region, with neurogenic*INVALID FOR* Degeneration of lumbar or lumbosacral intervert*INVALID FOR* Gastric mass [K31.9] INVALID FOR* Encounter Status:Closed by GIOVANNI HERNÁNDEZ MD on 06/18/17 OPERATIVE NO Observed: 06/13/2017 Status: COMPLETED Source: [facility] 12:00 AM [facility]IN[facility] OTHER CAMPUS REPOSITORY O ID: [id number] Author: Giovanni Hernández Service: General Surgery Author Type: Physician Type: Operative Report Filed: 06/17/2017 4:27 PM Note Text: [facility] - Operative Report SURGEON: Giovanni Hernández MD PATIENT NAME: RAMSES BRADSHAW CSN: [id number] DATE OF SURGERY: 05/30/2017 DATE OF : 1965 SEX/AGE: F/51 PATIENT TYPE: I HOSP SVC: GEN LOCATION: [id number] DATE OF SURGERY: 05/30/2017 SURGEON: Giovanni Hernández MD PREOPERATIVE DIAGNOSIS: 1. Neuroendocrine tumor in the stomach. 2. Biliary colic. POSTOPERATIVE DIAGNOSES: 1. Neuroendocrine tumor in the stomach. 2. Biliary colic. OPERATION: 1. Laparoscopic partial gastrectomy. 2. Intraoperative esophagogastroduodenoscopy. 3. Laparoscopic cholecystectomy. ANESTHESIA: General endotracheal. ESTIMATED BLOOD LOSS: Minimal. INDICATION FOR PROCEDURE: This is a 51-year-old female, who was having some chronic abdominal pain. She was worked up with an EGD, which showed evidence of a neuroendocrine tumor in the proximal stomach. She also was found to have biliary colic and symptoms concerning biliary colic. She has come in need for laparoscopic partial gastrectomy as well as laparoscopic cholecystectomy. Risks and benefits were discussed with her including, but not exclusive to, bleeding, infection, possibility of postoperative leak were discussed with the patient and she elected to undergo the procedure. DESCRIPTION OF PROCEDURE: After informed consent was obtained, the patient was brought to the operating room and placed on operative table in supine position. After the induction of general anesthetic, a preop check was completed, the abdomen was prepped and draped in sterile fashion. An incision was made superior to umbilicus and dissection was carried down to the fascia. The fascia was opened in the midline. The peritoneum was then entered. Under direct visualization, we inserted a Charlotte trocar. We then connected CO2 insufflation to establish pneumoperitoneum. We then performed a diagnostic laparoscopy. We found no evidence of any gross metastatic disease, and we continued with our laparoscopic approach. We then placed two 5-mm trocars in the left upper quadrant and a 10-mm trocar in the right upper quadrant. A new glucometer was used to retract the left lobe of the liver. We then opened up the gastrocolic ligament with the LigaSure device. We were able to take this up to free up the whole greater curvature up to the short gastric vessels, which were also then divided. We then examined the stomach. We did not see the lesion on external visualization of the stomach and on anterior visualization. We next performed an intraoperative EGD. Upon intraoperative EGD, we did see evidence of lesion in the fundus of the stomach. Utilizing EGD guidance, we then were able to palpate this and found the lesion. The lesion was then tagged with a stay stitch. We then stapled off this. A wedge resection was then performed of the stomach with multiple fires of the Endo-JOAN purple load stapler. After this, a repeat EGD was performed without evidence of any narrowing of the lumen and intraoperative leak test was then performed, did not show evidence of any leak at the staple line under air-leak test. After this, the EGD scope was then removed. We then oversewed the staple line with a running 2-0 silk sutures. This was found to be airtight without evidence of any bleeding. Next, we turned attention to our laparoscopic cholecystectomy. The gallbladder was then grasped with the lateral port sites. The cystoduodenal ligament was opened. The cystic duct and cystic artery were skeletonized. Its critical view was then obtained. We then placed three clips proximally and one clip distally in cystic duct, one clip was placed proximally and distally in cystic artery. The cystic duct area was divided sharply with scissors. The gallbladder was then taken off the gallbladder fossa with electrocautery. Prior to fully removing the gallbladder, we cauterized the liver bed. We then copiously irrigated the right upper quadrant. The fluid was clear. The gallbladder was placed into endobag as well as the partial gastrectomy which were then brought out through umbilical port site, the abdomen was desufflated. Ports were removed. We closed fascia at the umbilical port site with a [id number] 0 Vicryl suture. We closed the remainder of the skin incisions with running 4-0 Monocryl stitch. At the end of the case, all sponge and needle counts were correct. The patient was awakened and transferred to PACU in stable condition. I was present and scrubbed the entire procedure. SPECIMENS: 1. Partial gastrectomy. 2. Gallbladder. DRAINS: 0. WOUND CLASS: 2, clean, and contaminated. Giovanni Hernández MD General Surgery NSA:modl /[id number] OBSOLETE Observed: 06/13/2017 Status: COMPLETED Source: [facility] 12:00 AM [facility] OTHER TRAIL REPOSITORY Refill ([facility]) RAMSES BRADSHAW ([id number]) 1965 F Date Time Provider Department 06/13/17 GIOVANNI HERNÁNDEZ During your visit today, we recorded the following information about you: Allergies As of Date: 06/13/2017 Noted Allergy Reaction ASA (SALICYLATES) 11/14/2004 8 - GI Upset ERYTHROMYCIN 11/14/2004 11 - Vomiting Comments: Vomiting AND diarrhea IBUPROFEN 11/14/2004 8 - GI Upset LATEX 06/30/2010 14 - Other: See Comments Comments: Pt reports reaction to Latex, adhesives, EKG stickers w/ skin irritation at times...causes redness AND blisters NSAIDS (NON-STEROIDAL ANTI-INFLAM*02/23/2014 6 - Diarrhea 11 - Vomiting Date Reviewed: 06/01/2017 Reviewed by: Margoth Demarco) CARMELA Harrison - Fully Assessed Reason for Visit: Refill Request [94] Primary Visit Diagnosis:Gastric mass [K31.9] Order(s):oxyCODONE IR (ROXICODONE) 5 mg immediate release tabletTake 1 tablet by mouth every 6 hours as needed for Pain for up to 7 days.Disp: 40 tabletRfl: 0 Prescriptions as of 06/13/2017 Sig: OXYCODONE 5 MG TABLET Take 1 tablet by mouth every * SUCRALFATE 100 MG/ML ORAL OSCAR* Take 10 mL by mouth four time* OXYCODONE 5 MG TABLET Take 1 tablet by mouth every * MECLIZINE 25 MG TABLET Take 25 mg by mouth twice kaycee* X AMLODIPINE 5 MG TABLET Take 5 mg by mouth. OXYCODONE 5 MG TABLET Take 1 tablet by mouth every * ONDANSETRON HCL 4 MG TABLET Take 1 tablet by mouth every * PANTOPRAZOLE 40 MG TABLET,DEL* Take 40 mg by mouth once sidra* X LISINOPRIL 20 MG TABLET Take 1 tablet by mouth twice * Patient taking differently: Take 40 mg by mouth twice kaycee* CHOLECALCIFEROL (VITAMIN D3) * Take 50,000 Units by mouth on* TOLTERODINE ER 4 MG CAPSULE,E* Take 4 mg by mouth once daily. ZOLPIDEM 10 MG TABLET Take 10 mg by mouth daily at * LORAZEPAM 1 MG TABLET Take 1 mg by mouth twice sidra* NITROGLYCERIN 0.4 MG SUBLINGU* Dissolve 1 tablet under the t* HYDROXYZINE PAMOATE 25 MG CAP* Take 25 mg by mouth three alo* ABILIFY ORAL Take by mouth once daily. DULOXETINE 60 MG CAPSULE,VANESA* Take 60 mg by mouth once sidra* FERROUS FUMARATE 325 MG (106 * Take 325 mg by mouth twice da* LEVOTHYROXINE 25 MCG TABLET Take 25 mcg by mouth once kaycee* OMEPRAZOLE MAGNESIUM 20 MG CA* Take 20 mg by mouth once sidra* OXYCODONE-ACETAMINOPHEN 10 MG* Take 1 tablet by mouth every * CALCIUM CARBONATE-VITAMIN D3 * Take by mouth once each week. 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 OXYCODONE 5 MG TABLET 40 t* 0 07/02/2017 07/09/2017 Class: Print RX Route: ORAL Sig: Take 1 tablet by mouth every 6 hours as needed for Pain for up to 7 days. Medications Discontinued During This Encounter oxyCODONE IR (ROXICODONE) 5 mg immed* 30 t* 0 06/19/2017 07/02/2017 Class: Print RX Route: ORAL Sig: Take 1 tablet by mouth every 6 hours as needed for Pain for up to 7 days. Disc: Reason for discontinue is not on file. Encounter Status:Closed by GIOVANNI HERNÁNDEZ MD on 07/02/17 OBSOLETE Observed: 06/11/2017 Status: COMPLETED Source: [facility] 12:00 AM CLIN[facility] OTHER CAMPUS REPOSITORY Refill ([facility]) RAMSES BRADSHAW ([id number]) 1965 F Date Time Provider Department 06/11/17 GIOVANNI HERNÁNDEZ [facility] During your visit today, we recorded the following information about you: Allergies As of Date: 06/11/2017 Noted Allergy Reaction ASA (SALICYLATES) 11/14/2004 8 - GI Upset ERYTHROMYCIN 11/14/2004 11 - Vomiting Comments: Vomiting AND diarrhea IBUPROFEN 11/14/2004 8 - GI Upset LATEX 06/30/2010 14 - Other: See Comments Comments: Pt reports reaction to Latex, adhesives, EKG stickers w/ skin irritation at times...causes redness AND blisters NSAIDS (NON-STEROIDAL ANTI-INFLAM*02/23/2014 6 - Diarrhea 11 - Vomiting Date Reviewed: 06/01/2017 Reviewed by: Margoth SalcidoRn) CARMELA Harrison - Fully Assessed Reason for Visit: Refill Request [94] Order(s):sucralfate (CARAFATE) 100 mg/mL suspensionTake 10 mL by mouth four times daily.Disp: 1200 mLRfl: 0 Prescriptions as of 06/11/2017 Sig: SUCRALFATE 100 MG/ML ORAL OSCAR* Take 10 mL by mouth four time* OXYCODONE 5 MG TABLET Take 1 tablet by mouth every * MECLIZINE 25 MG TABLET Take 25 mg by mouth twice kaycee* AMLODIPINE 5 MG TABLET Take 5 mg by mouth. OXYCODONE 5 MG TABLET Take 1 tablet by mouth every * ONDANSETRON HCL 4 MG TABLET Take 1 tablet by mouth every * PANTOPRAZOLE 40 MG TABLET,DEL* Take 40 mg by mouth once sidra* LISINOPRIL 20 MG TABLET Take 1 tablet by mouth twice * Patient taking differently: Take 40 mg by mouth twice kaycee* CHOLECALCIFEROL (VITAMIN D3) * Take 50,000 Units by mouth on* TOLTERODINE ER 4 MG CAPSULE,E* Take 4 mg by mouth once daily. ZOLPIDEM 10 MG TABLET Take 10 mg by mouth daily at * LORAZEPAM 1 MG TABLET Take 1 mg by mouth twice sidra* NITROGLYCERIN 0.4 MG SUBLINGU* Dissolve 1 tablet under the t* HYDROXYZINE PAMOATE 25 MG CAP* Take 25 mg by mouth three alo* ABILIFY ORAL Take by mouth once daily. DULOXETINE 60 MG CAPSULE,VANESA* Take 60 mg by mouth once sidra* FERROUS FUMARATE 325 MG (106 * Take 325 mg by mouth twice da* LEVOTHYROXINE 25 MCG TABLET Take 25 mcg by mouth once kaycee* OMEPRAZOLE MAGNESIUM 20 MG CA* Take 20 mg by mouth once sidra* OXYCODONE-ACETAMINOPHEN 10 MG* Take 1 tablet by mouth every * CALCIUM CARBONATE-VITAMIN D3 * Take by mouth once each week. 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 Medications Discontinued During This Encounter sucralfate (CARAFATE) 1 gram tablet 0 04/08/2017 06/11/2017 Class: Historical Med Sig: TAKE ONE TABLET BY MOUTH FOUR TIMES DAILY ONE hour BEFORE MEALS AND AT BEDTIME Disc: Reason for discontinue is not on file. Encounter Status:Closed by GIOVANNI HERNÁNDEZ MD on 06/11/17 CNDS Observed: 06/01/2017 Status: COMPLETED Source: [facility] 5:32 PM CLINIC OTHER CAMPUS REPOSITORY O ID: [id number] Author: Butch Orourke Service: General Surgery Author Type: Resident Type: Discharge Summaries Filed: 06/01/2017 9:53 PM Note Text: GENERAL SURGERY DISCHARGE SUMMARY PATIENT NAME: Ramses Bradshaw ADMISSION DATE: 05/30/2017 DISCHARGE DATE: 06/01/2017 Attending Physician: Dr. Hernández Reason for Hospitalization: Gastric mass Admitting Diagnosis: Gastric Mass Discharge Diagnosis: Same as admitting diagnosis. Operations During Hospitalization: Procedure(s) (LRB): LAPAROSCOPIC PARTIAL GASTRECTOMY WITH EGD (N/A) LAPAROSCOPIC CHOLECYSTECTOMY WITH GRAMS (N/A) Consultations: Care Management Hospital Course: Ramses Bradshaw is a 51 year old female who admitted on 05/30/2017 for surgical management of a gastric mass. The patient underwent the above procedure, which was completed without complication. The patient was sent to the post-operative recovery room in stable condition. After a brief stay in the PACU, the patient was transferred to the nursing floor for post-operative management. Once on the floor the patient's postoperative course was monitored closely and Ramses Bradshaw did well. Her diet was advanced with some nausea and vomiting, which resolved. Her pain was well-controlled. She was stable for discharge to Home/Self Care on POD #2. Complete and comprehensive discharge instructions were provided to the patient as well as necessary prescriptions. The patient had no further questions and was advised to call with any questions, concerns, or problems. Physical Examination at Discharge: Vitals: BP 152/85 Pulse 60 Temp 36.7 ?C (98.1 ?F) (Temporal Artery) Resp 18 Ht 157.5 cm (5' 2) Wt 78.5 kg (173 lb) SpO2 98% BMI 31.64 kg/m2 General: Alert, Mild Distress, Cooperative Skin: Skin color, texture, turgor normal. No rashes or lesions. Lungs: Unlabored breathing on O2 Therapy: Room Air on Liters: 2 sating at SpO2: 97 % Cardiac: rate and rhythm as above, Abdomen: Soft, No masses, hepatosplenomegaly, No lymphadenopathy and Mild tenderness in epigastrium Extremities: ROM of all joint grossly normal: strength grossly normal bilaterally. No deformities noted. Wound: clean, dry and intact Pertinent Laboratory Tests: Recent Labs 06/01/17 0334 05/31/17 0514 NA 146* 144 K 3.4* 3.8 CHLOR 114* 113* CO2 27 25 BUN 12 9 CREAT 0.87 0.63 GLUC 98 129* ANION 8 10 CA 8.9 9.7 ALB -- 3.2* AST -- 96* ALT -- 97* ALKPHOS -- 92 TBILI -- 0.3 WBC 14.78* 20.57* HB 12.1 13.3 HCT 37.4 39.7 PLT 222 250 Complications: Continued throughout the hospital course without complications. Labs and Procedures Pending at Discharge: No pending results. Patient Condition at Discharge: Stable Discharge Disposition: Home/Self Care Information Provided to Patient: Complete discharge instructions provided to the patient. Discharge Medications: Current Discharge Medication List CONTINUE these medications which have CHANGED oxyCODONE IR (ROXICODONE) 5 mg Take 5 mg by mouth every 6 hours as needed for Pain. Earliest Fill Date: 06/01/17 Qty: 10 tablet Refills: 0 Associated Diagnoses:Other acute appendicitis CONTINUE these medications which have NOT CHANGED meclizine (ANTIVERT) 25 mg Take 25 mg by mouth twice daily as needed (Pt is allowed to take upto qid,prn). amLODIPine (NORVASC) 5 mg Take 5 mg by mouth. ondansetron (ZOFRAN) 4 mg Take 4 mg by mouth every 8 hours as needed (for nausea.). Qty: 40 tablet Refills: [address] (PROTONIX) 40 mg Take 40 mg by mouth once daily. Refills: 2 sucralfate (CARAFATE) 1 gram tablet TAKE ONE TABLET BY MOUTH FOUR TIMES DAILY ONE hour BEFORE MEALS AND AT BEDTIME Refills: 0 lisinopril (ZESTRIL, PRINIVIL) 20 mg Take 20 mg by mouth twice daily. Qty: 60 tablet Refills: 11 cholecalciferol (Vitamin D3) (VITAMIN D3) 50,000 Units Take 50,000 Units by mouth once each week. tolterodine ER (DETROL LA) 4 mg Take 4 mg by mouth once daily. zolpidem (AMBIEN) 10 mg Take 10 mg by mouth daily at bedtime. LORazepam (ATIVAN) 1 mg Take 1 mg by mouth twice daily. DULoxetine (CYMBALTA) 60 mg Take 60 mg by mouth once daily. Ferrous Fumarate 325 mg Take 325 mg by mouth twice daily. levothyroxine (SYNTHROID) 25 mcg Take 25 mcg by mouth once daily. Calcium Carbonate-Vitamin D3 (VITAMIN D-3) 180-5,000 mg-unit tab Take by mouth once each week. metoprolol tartrate (LOPRESSOR) 50 mg ORAL Tab Take one half (1/2) tablet twice daily Qty: 30 Refills: 2 Associated Diagnoses:Hyperkinetic heart disease nitroglycerin sublingual (NITROQUICK) 0.4 mg Dissolve 0.4 mg under the tongue as needed. FOR CHEST PAIN. IF NO RELIEF CALL 911 Qty: 25 tablet Refills: 3 hydrOXYzine pamoate (VISTARIL) 25 mg Take 25 mg by mouth three times daily as needed. ARIPIPRAZOLE (ABILIFY ORAL) Take by mouth once daily. Omeprazole Magnesium 20 mg Take 20 mg by mouth once daily. oxyCODONE-acetaminophen (PERCOCET 10) 1 tablet Take 1 tablet by mouth every 6 hours as needed. STOP taking these medications benztropine (COGENTIN) 1 mg Comments: Reason for Stopping: Follow-Up: 7-10 days Future Appointments: Follow-up with Dr. Hernández in 7-10 days. TIME OF CARE: Discharge Management: I personally spent greater than 30 minutes involved in the discharge management of this patient. PROGRESS Observed: 06/01/2017 Status: COMPLETED Source: [facility] 10:07 AM CLINIC OTHER CAMPUS REPOSITORY HNO ID: [id number] Author: Gustabo Lewis Service: General Surgery Author Type: Resident Type: Progress Notes Filed: 06/01/2017 10:10 AM Note Text: Attestation signed by Radu Cam at 06/01/2017 1:02 PM I saw and evaluated the patient. I reviewed the resident's note and agree. Radu Cam MD, FACS, [facility] PROGRESS NOTE Surgery Progress Note SERVICE DATE: 06/01/2017 SERVICE TIME: 10:08 AM SUBJECTIVE: Subjective Subjective: This is a 51 year old female s/p gastric wedge resection Pt having emesis with po this am. Epigastric pain. Bowel movement No Flatus No Tolerating diet DIET REGULAR Ambulating Yes Nausea Yes Emesis Yes Current Facility-Administered Medications: potassium chloride ER 40 mEq tab(s) (K-DUR, KLOR-CON) 40 mEq ORAL ONCE sucralfate 1,000 mg oral liquid (CARAFATE) 1,000 mg ORAL AC and HS benztropine 1 mg tab(s) (COGENTIN) 1 mg ORAL BID DULoxetine 60 mg cap(s) (CYMBALTA) 60 mg ORAL DAILY tolterodine ER 4 mg cap(s) (DETROL LA) 4 mg ORAL DAILY zolpidem 5 mg tab(s) (AMBIEN) 5 mg ORAL AT BEDTIME LORazepam 1 mg tab(s) (ATIVAN) 1 mg ORAL BID lisinopril 20 mg tab(s) (ZESTRIL, PRINIVIL) 20 mg ORAL BID amLODIPine 5 mg tab(s) (NORVASC) 5 mg ORAL DAILY metoprolol tartrate (short acting) 50 mg tab(s) (LOPRESSOR) 50 mg ORAL BID morphine 2-4 mg injection 2-4 mg INTRAVENOUS q 2 H PRN 0.9% NaCl 2-10 mL 2-10 mL INTRAVENOUS q 12 H pantoprazole 40 mg injection (PROTONIX) 40 mg INTRAVENOUS DAILY (6 AM) oxyCODONE IR 5 mg tab(s) (ROXICODONE) 5 mg ORAL q 6 H PRN enoxaparin 40 mg injection (LOVENOX) 40 mg SUBCUTANEOUS DAILY dextrose 5% in LR infusion (D5-LR) 100 mL/hr INTRAVENOUS CONTINUOUS acetaminophen 650 mg tab(s) (TYLENOL) 650 mg ORAL q 6 H ondansetron (PF) 4 mg injection (ZOFRAN) 4 mg INTRAVENOUS q 6 H PRN levothyroxine 25 mcg tab(s) (SYNTHROID) 25 mcg ORAL DAILY (6 AM) OBJECTIVE: Objective PHYSICAL EXAM: VITAL SIGNS BP 135/78 Pulse 60 Temp (Src) 97.5 (Temporal Artery) Resp 18 Ht 5' 2 (1.58m) Wt 173 lb (78.5kg) SpO2 97% BMI 31.63 kg/(m2). Temp (24hrs), Av.6 ?C (97.8 ?F), Min:36.4 ?C (97.5 ?F), Max:36.8 ?C (98.2 ?F) Date 05/31/17 0700 - 06/01/17 0659 06/01/17 07 - 06/02/17 0659 Shift 1717-2575 9420-5338 3810-8478 24 Hour Total 0033-9195 2760-8663 3890-9237 24 Hour Total I N T A K E PO 066 394 7789 PO 825 135 7160 IV 972 878 8597 1905 D5 LR 820 990 6999 1905 Shift Total 889 216 3359 3045 O U T P U T Urine 750 513 196 8246 Void (ml) 450 200 250 900 Tube Output ([REMOVED] Indwelling Urinary Catheter 05/30/17 Sommer 16 Fr 05/31/17 0700) 300 300 Shift Total 750 829 016 4049 Weight (kg) 78.5 78.5 78.5 78.5 78.5 78.5 78.5 78.5 GENERAL: Alert, Mild Distress, Cooperative SKIN: Skin color, texture, turgor normal. No rashes or lesions. LUNGS: Unlabored breathing on O2 Therapy: Room Air on Liters: 2 sating at SpO2: 97 % CARDIAC: rate and rhythm as above, ABDOMEN: Soft, No masses, hepatosplenomegaly, No lymphadenopathy and Mild tenderness in epigastrium EXTREMITIES: ROM of all joint grossly normal: strength grossly normal bilaterally. No deformities noted. WOUND: clean, dry and intact DATA: Diagnostic tests reviewed for today's visit: No results for input(s): BODSITE, CTYPE, PH, PCO2, PO2, BE, HCO3, CO2CT, O2HB, COHB, MHGB, TEMP, PHTC, PCO2T, PO2T, O2AD in the last 72 hours. Recent Labs 06/01/17 0334 05/31/17 0514 CREAT 0.87 0.63 BUN 12 9 NA 146* 144 K 3.4* 3.8 CHLOR 114* 113* CO2 27 25 ANION 8 10 GLUC 98 129* CA 8.9 9.7 ALB -- 3.2* AST -- 96* ALT -- 97* ALKPHOS -- 92 TBILI -- 0.3 WBC 14.78* 20.57* HB 12.1 13.3 HCT 37.4 39.7 PLT 222 250 ASSESSMENT AND PLAN: Assessment/Plan 51 year old female s/p ?Laparoscopic Gastric Wedge Resection, Cholecystectomy 05/30 ? - CLD - Pt continuing to have nausea and emesis, will back down diet until tolerating PO - pain control - Home meds - Discontinue sommer SIGNATURE: Gustabo Lewis MD PATIENT NAME: Ramses Bradshaw DATE: June 01, 2017 TIME: 10:08 AM PAGER: [phone] HEMOGRAM/DIFF Collected: 06/01/2017 Status: F Source: [facility] 3:34 AM HEALTH SYSTEM REPOSITORY TYPE CODE TESTS RESULT OUT OF REFERENCE UNITS RANGE LAB WBC(LOINC) 3.98-10.04 thou/cmm WBC High 14.78 LAB RBC(LOINC) 3.93-5.22 mil/cmm RBC 4.17 LAB HGB(LOINC) 11.2-15.7 g/dL Hgb 12.1 LAB HCT(LOINC) 34.1-44.9 % Hct 37.4 LAB MCV(LOINC) 79.4-94.8 fl MCV 89.7 LAB MCH(LOINC) 25.6-32.2 pg MCH 29.0 LAB MCHC(LOINC 31.6-34.8 % ) MCHC 32.4 LAB RDW(LOINC) 11.7-14.4 % RDW 13.8 LAB RDWSD(LOIN 36.4-46.3 fl C) RDW SD 44.7 LAB PLT(LOINC) 182-369 thou/cmm Platelet 222 LAB MPV(LOINC) 9.4-12.3 fl MPV 10.3 LAB SEG(LOINC) % Seg Neutrophil 62.8 LAB IGRE(LOINC % ) Immature Grans 0.50 LAB LYMPH(LOIN % C) Lymphocyte 27.9 LAB MNO(LOINC) % Monocyte 5.8 LAB EOSIN(LOIN % C) Eosinophil 2.6 LAB BASO(LOINC % ) Basophil 0.4 LAB SEGN(LOINC 1.56-6.13 thou/cmm ) Abs. High Neut 9.28 LAB IGAB(LOINC 0.00-0.05 thou/cmm ) Abs High Immature Grans 0.07 LAB LYMN(LOINC 1.18-3.74 thou/cmm ) Abs. High Lymph 4.12 LAB MONON(LOIN 0.27-0.70 thou/cmm C) Abs. High [place] 0.86 LAB EOSN(LOINC 0.00-0.31 thou/cmm ) Abs. High Eosin 0.38 LAB BASON(LOIN 0.01-0.08 thou/cmm C) Abs. Baso 0.06 Performed By: #### CBCD1 #### [facility] [address] [place] [address] BASIC PANEL Collected: 06/01/2017 Status: F Source: [facility] 3:34 AM HEALTH SYSTEM REPOSITORY TYPE CODE TESTS RESULT OUT OF REFERENCE UNITS RANGE LAB NA(LOINC) 136-145 mEq/L Sodium High Blood 146 LAB K(LOINC) 3.5-5.1 mEq/L Low Potassium Blood 3.4 LAB CL(LOINC) 98-107 mEq/L Chloride High Blood 114 LAB CO2(LOINC) 21-32 mEq/L CO2 Blood 27 LAB GLU(LOINC) 70-99 mg/dL Glucose Blood 98 LAB BUN(LOINC) 7-18 mg/dL BUN Blood 12 LAB CREA(LOINC 0.51-0.95 mg/dL ) Creatinine Blood 0.87 LAB CA(LOINC) 8.5-10.1 mg/dL Calcium Blood 8.9 LAB ANGAP(LOIN 8-16 C) Anion Gap 8 Performed By: #### P8 #### [place] [id number] MDRD GFR Collected: 06/01/2017 Status: F Source: [facility] 3:34 AM HEALTH SYSTEM REPOSITORY TYPE CODE TESTS RESULT OUT OF RANGE REFERENCE UNITS LAB GFRFN(LOINC >60mL/min/1.73m ) 2 eGFR >60 Result Comment: If the patient is , multiply the result by 1.210. 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 No Advance Directive: patient refused Health Literacy: 1. How often do you need to have someone help you when you read instructions, pamphlets, or other written material from your doctor or pharmacy? Never - 1 2. How confident are you filling out medical forms by yourself? Extremely - 1 If Patient scores > 3 on either question, the following interventions were put into place: Gave Patient the opportunity to ask questions and Patient did not score > 3 FUNCTIONAL AND COGNITIVE/BEHAVIORAL PRIOR TO ADMISSION: Baseline Mental Status: Alert AND Oriented, Person, Place , Time and Situation Functional Status: Independent Does Patient Currently Receive Any Community Services or Home Care? None Equipment Prior to Admission: None Has the Patient Been in a Correction Facility in the Past 30 days? No SOCIAL: Living Arrangement: Home, 1-level apartment Lives With: Alone Financial Resources: Disabled Primary Contact: Extended Emergency Contact Information Primary Emergency Contact: Riddhi Bradshaw Relation: Daughter Secondary Emergency Contact: Vita Ye Mobile Relation: Daughter Supportive: Yes Other Important Patient Contacts: None Caregiver Assessment: Caregiver is ready, willing and able to meet the patient's needs as recommended by the inter-professional team? No Caregiver Needed Patient's transition needs and plan for meeting these needs: Patient plans to return home when medically stable; no discharge needs noted at this time Does the patient have an acute stroke diagnosis, or has the patient had a stroke during this admission? No Medication Adherence: I am convinced of the importance of my prescription medication: Agree completely - 0 I worry that my prescription medication will do more harm than good to me Disagree completely - 0 I feel financially burdened by my [id number] expenses for my prescription medication: Disagree completely - 0 Patient is categorized as low risk < 2 Are you interested in bedside delivery of your medications? Yes Food Concerns: In the Last Month, Have You had Trouble Getting Food? No trouble getting food During the Last Month, Have You Worried Whether Your Food Would Run Out Before You Had Enough Money to Buy More? No Is the Patient Psychosocially Complex? No ASSESSMENT AND PLAN: Medical Needs: pain control Psychosocial Needs: None FREEDOM OF CHOICE EXPLAINED: N/A --no discharge needs noted at this time POTENTIAL TRANSITION PLANS Home Patient states daughter will transport home at discharge. SIGNATURE: Kam Norman RN PATIENT NAME: Ramses Bradshaw DATE: May 31, 2017 TIME: 12:46 PM PAGER/CONTACT #: [phone] CASE MANAGEM Observed: 05/31/2017 Status: COMPLETED Source: [facility] 8:29 AM CLINIC OTHER CAMPUS REPOSITORY HNO ID: [id number] Author: Kam Demarco) CARMELA Norman Service: Care Management Author Type: Registered Nurse Type: Care Mgt Progress Note Filed: 05/31/2017 8:30 AM Note Text: CARE MANAGEMENT PROGRESS NOTE SERVICE DATE: 05/31/2017 SERVICE TIME: 828 LOS: 1 day Needs Prior to Discharge: To Be Determined MD notes reviewed: Patient POD#1 s/p scheduled Laparoscopic Gastric Wedge Resection, Cholecystectomy, 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 Advancing diet. Continue to follow for discharge planning needs. SIGNATURE: Kam Norman RN PATIENT NAME: Ramses Bradshaw DATE: May 31, 2017 TIME: 8:29 AM PAGER/CONTACT #: [phone] PROGRESS Observed: 05/31/2017 Status: COMPLETED Source: [facility] 6:14 AM [facility] HNO ID: [id number] Author: Coco Jules Service: General Surgery Author Type: Resident Type: Progress Notes Filed: 05/31/2017 8:27 AM Note Text: Attestation signed by Giovanni Hernández at 05/31/2017 10:15 AM Attending Note I personally saw and examined the patient. I reviewed the resident's note. I agree with the resident's assessment and plan with the following revisions and/or additions: some emesis today. Dc tomorrow Signature: Giovanni Hernández MD Date: 05/31/2017 Time: 10:15 AM General Surgery Progress Note SERVICE DATE: 05/31/2017 SUBJECTIVE: NAEON Tolerating diet DIET REGULAR Nausea No Emesis No Flatus No Bowel movement No Pain Controlled Yes Ambulating Yes OBJECTIVE: Vitals: Temp (24hrs), Av.2 ?C (98.9 ?F), Min:36.8 ?C (98.2 ?F), Max:37.7 ?C (99.9 ?F) BP 130/77 Pulse 60 Temp 37.3 ?C (99.1 ?F) (Oral) Resp 18 Ht 157.5 cm (5' 2) Wt 78.5 kg (173 lb) SpO2 97% BMI 31.64 kg/m2 O2 Therapy: Room Air IANDO: Date 05/30/17 0700 - 05/31/17 0659 05/31/17 0700 - 06/01/17 0659 Shift 7023-3864 3495-7904 8224-1416 24 Hour Total 2225-4760 1360-3012 4974-4786 24 Hour Total I N T A K E IV 4127 4127 D5 LR 327 327 LR 900 900 OR Crystalloid intake (mL) 2900 2900 Shift Total 4127 4127 O U T P U T Urine 1500 1500 OR Urine Output 150 150 Tube Output ( Indwelling Urinary Catheter 05/30/17 Sommer 16 Fr) 1350 1350 Blood 50 50 Estimated Blood loss 50 50 Shift Total 1550 1550 Weight (kg) 78.5 78.5 78.5 78.5 78.5 78.5 78.5 78.5 MEDICATIONS Current Facility-Administered Medications: benztropine 1 mg tab(s) (COGENTIN) 1 mg ORAL BID DULoxetine 60 mg cap(s) (CYMBALTA) 60 mg ORAL DAILY tolterodine ER 4 mg cap(s) (DETROL LA) 4 mg ORAL DAILY zolpidem 5 mg tab(s) (AMBIEN) 5 mg ORAL AT BEDTIME LORazepam 1 mg tab(s) (ATIVAN) 1 mg ORAL BID sucralfate 1 g tab(s) (CARAFATE) 1 g ORAL AC and HS lisinopril 20 mg tab(s) (ZESTRIL, PRINIVIL) 20 mg ORAL BID amLODIPine 5 mg tab(s) (NORVASC) 5 mg ORAL DAILY metoprolol tartrate (short acting) 50 mg tab(s) (LOPRESSOR) 50 mg ORAL BID morphine 2-4 mg injection 2-4 mg INTRAVENOUS q 2 H PRN 0.9% NaCl 2-10 mL 2-10 mL INTRAVENOUS q 12 H pantoprazole 40 mg injection (PROTONIX) 40 mg INTRAVENOUS DAILY (6 AM) oxyCODONE IR 5 mg tab(s) (ROXICODONE) 5 mg ORAL q 6 H PRN enoxaparin 40 mg injection (LOVENOX) 40 mg SUBCUTANEOUS DAILY dextrose 5% in LR infusion (D5-LR) 100 mL/hr INTRAVENOUS CONTINUOUS acetaminophen 650 mg tab(s) (TYLENOL) 650 mg ORAL q 6 H ondansetron (PF) 4 mg injection (ZOFRAN) 4 mg INTRAVENOUS q 6 H PRN levothyroxine 25 mcg tab(s) (SYNTHROID) 25 mcg ORAL DAILY (6 AM) Labs: Recent Labs 05/31/17 0514 NA 144 K 3.8 CHLOR 113* CO2 25 BUN 9 CREAT 0.63 GLUC 129* ANION 10 CA 9.7 ALB 3.2* AST 96* ALT 97* ALKPHOS 92 TBILI 0.3 WBC 20.57* HB 13.3 HCT 39.7 PLT 250 Exam: GENERAL: No distress, Alert NEURO: AANDOx3, CN II-XII grossly intact HEENT: normocephalic, atraumatic LUNGS: Unlabored breathing CARDIAC: Regular rate and rhythm as above ABDOMEN: Soft, mild TTP/distension, incisions C/D/I EXTREMITIES: YAÑEZ, No deformities, No edema SKIN: Skin color, texture, turgor normal, No rashes or lesions ASSESSMENT AND PLAN: Active Hospital Problems Diagnosis Date Noted - Gastric mass 05/30/2017 51 year old female s/p Laparoscopic Gastric Wedge Resection, Cholecystectomy 05/30 - Reg diet - pain control - Home meds - Discontinue sommer - Likely discharge today SIGNATURE: Coco Jules MD PATIENT NAME: Ramses Bradshaw DATE: May 31, 2017 TIME: 6:14 AM Pager: [phone] HEMOGRAM/DIFF Collected: 05/31/2017 Status: F Source: [facility] 5:14 AM HEALTH SYSTEM REPOSITORY TYPE CODE TESTS RESULT OUT OF REFERENCE UNITS RANGE LAB WBC(LOINC) 3.98-10.04 thou/cmm WBC High 20.57 LAB RBC(LOINC) 3.93-5.22 mil/cmm RBC 4.55 LAB HGB(LOINC) 11.2-15.7 g/dL Hgb 13.3 LAB HCT(LOINC) 34.1-44.9 % Hct 39.7 LAB MCV(LOINC) 79.4-94.8 fl MCV 87.3 LAB MCH(LOINC) 25.6-32.2 pg MCH 29.2 LAB MCHC(LOINC 31.6-34.8 % ) MCHC 33.5 LAB RDW(LOINC) 11.7-14.4 % RDW 13.3 LAB RDWSD(LOIN 36.4-46.3 fl C) RDW SD 42.9 LAB PLT(LOINC) 182-369 thou/cmm Platelet 250 LAB MPV(LOINC) 9.4-12.3 fl MPV 9.9 LAB SEG(LOINC) % Seg Neutrophil 85.1 LAB IGRE(LOINC % ) Immature Grans 0.80 LAB LYMPH(LOIN % C) Lymphocyte 9.2 LAB MNO(LOINC) % Monocyte 4.7 LAB EOSIN(LOIN % C) Eosinophil 0.0 LAB BASO(LOINC % ) Basophil 0.2 LAB SEGN(LOINC 1.56-6.13 thou/cmm ) Abs. High Neut 17.51 LAB IGAB(LOINC 0.00-0.05 thou/cmm ) Abs High Immature Grans 0.16 LAB LYMN(LOINC 1.18-3.74 thou/cmm ) Abs. Lymph 1.89 LAB MONON(LOIN 0.27-0.70 thou/cmm C) Abs. High [place] 0.97 LAB EOSN(LOINC 0.00-0.31 thou/cmm ) Abs. Eosin 0.00 LAB BASON(LOIN 0.01-0.08 thou/cmm C) Abs. Baso 0.04 Result Comment: Smear scanned; tech agrees with automated differential Performed By: #### CBCD1 #### [address] [id number] BASIC PANEL Collected: 05/31/2017 Status: F Source: [facility] 5:14 AM HEALTH SYSTEM REPOSITORY TYPE CODE TESTS RESULT OUT OF REFERENCE UNITS RANGE LAB NA(LOINC) 136-145 mEq/L Sodium Blood 144 LAB K(LOINC) 3.5-5.1 mEq/L Potassium Blood 3.8 LAB CL(LOINC) 98-107 mEq/L Chloride High Blood 113 LAB CO2(LOINC) 21-32 mEq/L CO2 Blood 25 LAB GLU(LOINC) 70-99 mg/dL Glucose High Blood 129 LAB BUN(LOINC) 7-18 mg/dL BUN Blood 9 LAB CREA(LOINC 0.51-0.95 mg/dL ) Creatinine Blood 0.63 LAB CA(LOINC) 8.5-10.1 mg/dL Calcium Blood 9.7 LAB ANGAP(LOIN 8-16 C) Anion Gap 10 Performed By: #### P8 #### [place] [address] HEPATIC PANEL Collected: 05/31/2017 Status: F Source: [facility] 5:14 AM HEALTH SYSTEM REPOSITORY TYPE CODE TESTS RESULT OUT OF REFERENCE UNITS RANGE LAB ALB(LOINC) 3.4-5.0 g/dL Low Albumin Blood 3.2 LAB ALT(LOINC) 12-78 U/L ALT-SGPT High Blood 97 LAB ALKP(LOINC 46-116 U/L ) Alk Phosphatase 92 LAB TP(LOINC) 6.4-8.2 g/dL Total Protein 6.9 LAB AST(LOINC) 9-37 U/L AST-SGOT High Blood 96 LAB BILIT(LOIN 0.2-1.0 mg/dL C) Total Bilirubin 0.3 LAB DBIL(LOINC 0.00-0.20 mg/dL ) Direct Bilirubin 0.10 Performed By: #### HEPAP #### [place] [address] MDRD GFR Collected: 05/31/2017 Status: F Source: [facility] 5:14 AM HEALTH SYSTEM REPOSITORY TYPE CODE TESTS RESULT OUT OF RANGE REFERENCE UNITS LAB GFRFN(LOINC >60mL/min/1.73m ) 2 eGFR >60 Result Comment: If the patient is , multiply the result by 1.210. Performed By: #### GFR #### [place] [address] ANES POST Observed: 05/30/2017 Status: COMPLETED Source: [place] [address]:58 PM [facility] REPOSITORY HNO ID: [id number] Author: Israel Pepper Service: Anesthesiology Author Type: Physician Type: Anesthesia PostOp Filed: 05/30/2017 6:59 PM Note Text: POST ANESTHESIA EVALUATION NOTE SERVICE DATE: 05/30/2017 SERVICE TIME: 6:58 PM : 1965 Vitals: 05/30/17 1305 05/30/17 1710 Temp: 36.9 ?C (98.4 ?F) 37.7 ?C (99.9 ?F) 05/30/17 1710 05/30/17 1715 05/30/17 1730 05/30/17 1745 BP: 115/80 111/65 129/71 142/71 05/30/17 1715 05/30/17 1730 05/30/17 1745 05/30/17 1800 Pulse: 73 64 (!) 56 65 05/30/17 1715 05/30/17 1730 05/30/17 1745 05/30/17 1800 Resp: 17 14 12 15 05/30/17 1715 05/30/17 1730 05/30/17 1745 05/30/17 1800 SpO2: 94% 93% 97% 98% Validated Vital Signs: Yes POST ANES STATUS: No apparent anesthetic complications. The patient is appropriately hydrated with stable respiratory and cardiovascular status. Patient has safe and adequate airway control. The patient has appropriate pain relief and no significant post operative nausea or vomiting. The patient has achieved baseline mental status. Further assessment by Anesthesia Service: None Other Remarks: SIGNATURE: Israel Pepper MD PATIENT NAME: Ramses Bradshaw DATE: May 30, 2017 TIME: 6:58 PM PAGER/CONTACT #: [phone] OP NOT Observed: 05/30/2017 Status: COMPLETED Source: [facility] 5:10 PM [facility] REPOSITORY HNO ID: [id number] Author: Coco Jules Service: General Surgery Author Type: Resident Type: Brief Op Note Filed: 05/30/2017 5:29 PM Note Text: BRIEF OPERATIVE / PROCEDURE NOTE LOG ID: [id number] Surgery/Procedure Date: 05/30/2017 Incision/Procedure Start Time: 2:38 PM Incision Close/Procedure End Time: 5:02 PM Surgeon(s)/Proceduralist(s) and Film Mounter(s): Surgeon(s) and Role: * Giovanni Ali - Primary * Coco Jules - Resident - Assisting No Additional Staff Procedure(s): Laparoscopic Gastric Wedge Resection, Cholecystectomy, EGD Anesthesia: General Findings: 2cm on posterior wall of stomach near GE junction, normal gallbladder with no stones palpated Estimated Blood Loss: 0 ml Specimens: 2cm gastric mass, gallbladder Complications: None Pre-Op/Pre-Procedure Diagnosis: Benign neuroendocrine tumor of stomach, Biliary Colic Post-Op/Post-Procedure Diagnosis: Benign neuroendocrine tumor of stomach [D3A.092] Biliary colic [K80.50] SIGNATURE: Coco Jules MD PATIENT NAME: Ramses Bradshaw DATE: May 30, 2017 TIME: 5:10 PM PAGER/CONTACT #: [phone] NURSING PROG Observed: 05/30/2017 Status: COMPLETED Source: [facility] 4:13 PM [facility] REPOSITORY HNO ID: [id number] Author: Sharmaine (Rn) CARMELA Schmidt Service: (none) Author Type: Registered Nurse Type: Nursing Progress Note Filed: 05/30/2017 4:14 PM Note Text: Nursing Progress Note Patient Name: Ramses Bradshaw Patient Location: [place] Daily Note:Family notified of case status at this time. This note was completed by: Sharmaine Schmidt RN ANES PREOP Observed: 05/30/2017 Status: COMPLETED Source: [facility] 12:42 PM [facility] REPOSITORY HNO ID: [id number] Author: Israel Pepper Service: Anesthesiology Author Type: Physician Type: Anesthesia PreOp Filed: 05/30/2017 1:31 PM Note Text: ANESTHESIOLOGY DAY OF SURGERY NOTE SERVICE DATE: 05/30/2017 SERVICE TIME: 12:42 PM : 1965 Procedure(s) (LRB): LAPAROSCOPIC PARTIAL GASTRECTOMY (N/A) LAPAROSCOPIC CHOLECYSTECTOMY WITH GRAMS (N/A) Surgeon(s): Giovanni Hernández Estimated body mass index is 31.64 kg/(m2) as calculated from the following: Height as of 05/21/17: 157.5 cm (5' 2). Weight as of 05/21/17: 78.5 kg (173 lb). Most recent hematocrit and potassium results: Hematocrit 42.0 05/21/2017 Potassium 3.8 04/22/2017 ANES DOS/PREOP NOTE: Vitals: There were no vitals filed for this visit. 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 pacemaker checked [facility] - Sick sinus syndrome (HCC) - Sleep apnea uses cpap at night PAST SURGICAL HISTORY Procedure Laterality Date - APPENDECTOMY - CARPAL TUNNEL left - HYSTERECTOMY HX - LAPAROSCOPY DIAGNOSTIC - PACEMAKER (PM) 2003 - PAST SURGICAL HISTORY OF lumbar pain injections. - [place] ANESTH,LUMBAR SPINE,CORD SURGERY 02/07/2016 L4-L5 fusion; [facility] - REVISE ULNAR NERVE AT ELBOW bilateral- with revisions FAMILY HISTORY Problem Relation Age of Onset - Multiple Sclerosis Father 26 at age 41 - Multiple Sclerosis Daughter 30 dx Mar 2016 - orthostatic hypotension [OTHER] Sister Social History: Social History Substance Use Topics - Smoking status: Former Smoker Packs/day: 0.50 Years: 25.00 Types: Cigarettes Quit date: 05/22/2015 - Smokeless tobacco: Never Used Comment: quit 2 years ago - Alcohol use No No current facility-administered medications on file prior to encounter. Current Outpatient Prescriptions on File Prior to Encounter: oxyCODONE IR (ROXICODONE) 5 mg immediate release tablet Take 1 tablet by mouth every 6 hours as needed for up to 7 days. ondansetron (ZOFRAN, HYDROCHLORIDE,) 4 mg tablet Take 1 tablet by mouth every 8 hours as needed (for nausea.). sucralfate (CARAFATE) 1 gram tablet TAKE ONE TABLET BY MOUTH FOUR TIMES DAILY ONE hour BEFORE MEALS AND AT BEDTIME lisinopril (PRINIVIL) 20 mg tablet Take 1 tablet by mouth twice daily. (Patient taking differently: Take 40 mg by mouth twice daily. ) cholecalciferol, Vitamin D3, (D3-50 CHOLECALCIFEROL) 50,000 unit cap capsule Take 50,000 Units by mouth once each week. tolterodine ER (DETROL LA) 4 mg 24 hr capsule Take 4 mg by mouth once daily. zolpidem (AMBIEN) 10 mg tab Take 10 mg by mouth daily at bedtime. LORazepam (ATIVAN) 1 mg tablet Take 1 mg by mouth twice daily. DULoxetine (CYMBALTA) 60 mg capsule Take 60 mg by mouth once daily. Ferrous Fumarate 325 mg (106 mg iron) tab Take 325 mg by mouth twice daily. levothyroxine (LEVOTHROID) 25 mcg tablet Take 25 mcg by mouth once daily. pravastatin (PRAVACHOL) 40 mg tablet Take 40 mg by mouth once daily. Calcium Carbonate-Vitamin D3 (VITAMIN D-3) 180-5,000 mg-unit tab Take by mouth once each week. metoprolol tartrate (LOPRESSOR) 50 mg ORAL Tab Take one half (1/2) tablet twice daily pantoprazole DR (PROTONIX) 40 mg tablet Take 40 mg by mouth once daily. nitroglycerin sublingual (NITROQUICK) 0.4 mg SL tablet Dissolve 1 tablet under the tongue as needed. FOR CHEST PAIN. IF NO RELIEF CALL 911 hydrOXYzine pamoate (VISTARIL) 25 mg capsule Take 25 mg by mouth three times daily as needed. ARIPIPRAZOLE (ABILIFY ORAL) Take by mouth once daily. benztropine (COGENTIN) 1 mg tablet Take 1 mg by mouth twice daily. Omeprazole Magnesium 20 mg cpDR Take 20 mg by mouth once daily. oxyCODONE-acetaminophen (PERCOCET) 10-325 mg tablet Take 1 tablet by mouth every 6 hours as needed. Current Facility-Administered Medications: lidocaine 10 mg/mL (1 %) 1-2 mg injection (XYLOCAINE) 0.1- 0.2 mL INTRADERMAL PRN Noaman Ali lactated ringers infusion 5-30 mL/hr INTRAVENOUS CONTINUOUS Noaman Ali ciprofloxacin 400 mg in D5W 200 mL (CIPRO) 400 mg INTRAVENOUS Pre-Op Once Noaman Ali And metroNIDAZOLE 500 mg PREMIX piggyback (FLAGYL) 500 mg INTRAVENOUS Pre-Op Once Noaman Ali Allergies: ALLERGIES Allergen Reactions - Asa [Salicylates] - Erythromycin - Ibuprofen - Latex Unknown - Nsaids (Non-Steroid* Diarrhea, Vomiting DOS EXAM: Adequate NPO status: Yes Anesthetic risks, benefits, alternatives, personnel and consent discussed: Yes Patient agrees to proceed: Yes Previous Anesthesia: No history of adverse event. Airway Assessment: MP 2; Neck ROM: Full ROM without neurologic symptoms; Airway Evaluation: No significant abnormalities Symptoms of Sleep Apnea: Hypertension and Age over 50 (51 year old) Dentition: Teeth intact Additional Physical Exam: Lungs: Patient health status unchanged since recent history and physical. See history and physical for exam findings. Cardiac: Patient health status unchanged since recent history and physical. See history and physical for exam findings. Additional Pertinent Findings: N/A Blood Products: Not anticipated for this procedure. Anesthetic Plan: General, Standard ASA Monitors Pain Management Plan: Parenteral or Oral ASA Class: 4 Other Medical Problems: None. Cardiology clearance Selwyn Farfan. Pacemaker DDD, Magnet DOO 100 Chronic Beta Aislinn medication administered within 24 hours: Yes I have interviewed and examined the patient. I have reviewed the medical record and/or the pre-anesthesia evaluation, pertinent labs, and test results. Significant changes in the patient's condition since the History and Physical, not otherwise documented in primary service progress notes: No This contains updated information obtained within 48 hours of Surgery/Procedure. SIGNATURE: Israel Pepper MD PATIENT NAME: Ramses Bradshaw DATE: May 30, 2017 TIME: 12:42 PM CSN: [id number] GLUCOSE METER Collected: 05/30/2017 Status: F Source: [facility] 12:08 PM HEALTH SYSTEM REPOSITORY TYPE CODE TESTS RESULT OUT OF REFERENCE UNITS RANGE LAB GLUBL(LOINC 70-99 mg/dL ) High Glucose Meter 102 Result Comment: RN NOTIFIED Performed By: #### GLMET #### [place] [address] SURGICAL TISSUE EXAM Observed: 05/30/2017 Status: F Source: [facility] 12:00 AM HEALTH SYSTEM REPOSITORY Test performed at [place] [address] NAME: RAMSES BRADSHAW REQUESTING: GIOVANNI HERNÁNDEZ MD COPY TO: TUMOR REGISTRY; INFORMATION TECHNOLOGY INSTRUCTOR FINAL DIAGNOSIS: A) STOMACH, PARTIAL GASTRECTOMY - WELL-DIFFERENTIATED NEUROENDOCRINE TUMOR, G1. SEE COMMENT. B) GALLBLADDER, CHOLECYSTECTOMY - CHOLESTEROLOSIS. COMMENT: Gross evaluation of this well-demarcated lesion revealed no gross evidence of involvement of the stapled surgical resection margin. Upon sectioning and removing of the hiren the tumor appeared to abut against the surgical resection margin. The surgical margins are considered negative. In order to assist in evaluation, immunohistochemical stains were performed. The tumor is strongly positive for chromogranin and synaptophysin. A Ki-67 stain shows only a rare scattered cell staining (< 1%). Stomach Neuroendocrine Cancer Case Summary Procedure: Laparoscopic partial gastrectomy. Tumor site: Stomach, not otherwise specified. Tumor size: 2.2 x 1.6 x 0.5 cm. Tumor focality: Unifocal. Histologic type/grade: G1: well-differentiated neuroendocrine tumor. Mitotic rate: < 2 mitoses/2 mm2. Ki-67 labeling index < 3%. Tumor extension: Tumor invades the muscularis propria. Margins: All margins are uninvolved by tumor (see comment). Lymph-vascular invasion: Not identified. Regional lymph nodes: No lymph nodes submitted or found. Pathologic stage: pT2 pNX. OPERATIVE PROCEDURE: Laparoscopic cholecystectomy, Laparoscopic partial gastrectomy with EGD CLINICAL INFORMATION: Biliary colic, Benign neuroendocrine tumor of stomach [D3A.092] INTRAOPERATIVE CONSULTATION: GROSS EVALUATION: Gross evaluation of gastric mass - Mass affect is noted within the specimen. No frozen section was performed. (ATP) GROSS DESCRIPTION: A) Partial gastrectomy (neuroendocrine tumor on outside possible) The specimen is labeled with the patient's name and the designation partial gastrectomy. Received fresh for intraoperative consultation is a 5 x 2 x 2 cm stapled segment of stomach. The serosa is pink-purple and grossly unremarkable. No mass or perforation is identified. A part of the specimen is opened and scissors are used to completely open the gastric segment to reveal a centrally ulcerated 2.2 x 1.6 x 0.5 cm aburto-brown mass that extends to within 1 cm of the stapled margin. Once the specimen is trimmed away from hiren, unfortunately, the lesion appears at the inked margins, but may not represent a true surgical margin. Sections through the mass demonstrate a smooth, aburto expansion of the underlying wall and no obvious extension beyond the grossly intact serosal surface. The lesion is sharply demarcated from the surrounding unremarkable aburto gastric mucosa. The presence of a mass was verified and communicated to the surgeon by way of an intraoperative gross evaluation. No frozen section was performed. Sections are submitted in seven cassettes as follows: 1-4 - mass totally submitted with deep aspect inked black and perpendicular surgical margins inked yellow; 5-6 - tissue in vicinity of mass; 7 - tissue away from mass. ATP:je B) Gallbladder Received in formalin labeled gallbladder is an intact gallbladder measuring 7.3 x 2.5 x 2.2 cm. The serosa is green-red, smooth and glistening. Opening reveals an abundant amount of green tenacious bile and no discrete calculi can be identified. The mucosa is dark green and velvet with diffuse areas of aburto-yellow, mucosal stippling. The wall is 0.1 to 0.2 cm in thickness. High [employer] Biology Teacher sections are submitted in one cassette. BMP:je MOLINA M.D., PATHOLOGIST (Electronic signature on file) Signed out: 06/04/2017 10:52 PRINTED: 06/04/2017 Page 1 of 1 Performed By: #### SURG #### [place] [address] ANES PREOP Observed: 05/29/2017 Status: COMPLETED Source: [place] 1:25 PM [facility] REPOSITORY HNO ID: [id number] Author: Alice Ruggiero APRN.CNP Service: General Surgery Author Type: Nurse Practitioner Type: Anesthesia PreOp Filed: 05/29/2017 1:25 PM Note Text: Or control desk notified of pacemaker SURGERY VISIT REPORT Observed: 05/29/2017 Status: F Source: [place] 9:30 AM [facility] [place] [facility] [address] [facility] [address] [place] [address] OFFICE VISIT Date of Service: 05/22/17 MR#: [id number] Acct: [id number] Name: LEEANNRAMSES L Rep #: [id number] : 1965 Provider: Clarissa Casas MD Age/Sex: 51/F [place] [facility] [place] Status: Signed Intake Intake Visit Reasons: EXCISION OF CHEST LESION 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 Required: No Is patient in pain?: No Allergies erythromycin base [Erythromycin Base] Adverse Reaction (Verified 05/22/17 12:49) Vomiting,diarrhea NSAIDS (Non-Steroidal Anti-Inflamma Adverse Reaction (Verified 05/22/17 12:49) Vomiting,diarrhea shellfish Allergy (Mild, Uncoded 05/17/17 13:40) Unknown Medications Duloxetine Hcl [Cymbalta] 60 mg PO DAILY 03/28/15 [History Confirmed 05/22/17] Levothyroxine [Synthroid] 25 mcg PO DAILY 03/28/15 [History Confirmed 05/22/17] Lisinopril [Zestril] 40 mg PO BID 03/28/15 [History Confirmed 05/22/17] Metoprolol Tartrate [Lopressor (beta aislinn)] 25 mg PO BID 03/28/15 [History Confirmed 05/22/17] Omeprazole [Prilosec] 20 mg PO DAILY 04/18/16 [History Confirmed 05/22/17] Tolterodine Tartrate [Tolterodine Tartrate ER] 4 mg PO DAILY 04/18/16 [History Confirmed 05/22/17] Lorazepam [Ativan] 1 mg PO BID 08/22/16 [History Confirmed 05/22/17] Ferrous Sulfate 325 mg PO BID 09/11/16 [History Confirmed 05/22/17] Zolpidem Tartrate [Ambien] 10 mg PO QHS 09/11/16 [History Confirmed 05/22/17] Ondansetron [Zofran Odt] 4 mg PO Q8H PRN PRN #10 tab 03/06/17 [Rx Confirmed 05/22/17] Meclizine HCl [Antivert] 25 mg PO BID PRN PRN 04/05/17 [History Confirmed 05/22/17] Pantoprazole Sodium [Protonix] 40 mg PO DAILY #30 tab 04/08/17 [Rx Confirmed 05/22/17] Sucralfate [Carafate] 1 gm PO 4X/DAY #120 tab 04/08/17 [Rx Confirmed 05/22/17] Oxycodone [Oxyir] 5 - 10 mg PO Q6H PRN PRN 3 Days #20 tab 04/11/17 [Rx Confirmed 05/22/17] Amlodipine [Norvasc] 5 mg PO DAILY 05/17/17 [History Confirmed 05/22/17] PFSH Medical History Neuroendocrine neoplasm of stomach (Acute) History of anxiety disorder (Chronic) Benign essential hypertension (Chronic) Obesity (Chronic) Familial combined hyperlipidemia (Chronic) Tobacco dependence syndrome (Chronic) Chronic pain syndrome (Chronic) Chest tightness (Acute) Chronic lower back pain (Chronic) Sinus pause (Chronic) h/o back surgery (Acute) Surgical History Status post placement of cardiac pacemaker (Chronic) S/P appendectomy (Acute) S/P hysterectomy (Acute) S/P laparoscopy (Acute) S/P laparotomy (Acute) Family History Daughter Asthma Father Heart disease Hypertension CAD (coronary artery disease) Social History Smoking Status: Former smoker alcohol intake: never HPI HPI HPI: RAMSES BRADSHAW, is a 51 F who presents to the office today for excision of right medial breast skin lesion. Patient states she has had this for about 2 years and is to be flat and smaller. However she did see her daughter who is a PA her Thanksgiving who states she should have it looked at because at that time it was raised and larger. Patient states it has been about the same size for about 8 months. Denies any pain or other changes to the surrounding skin. 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 Patient is having her gastric neuroendocrine tumor excised at [facility] with Dr. Hernández on May 30, 2017. Exam Const General: cooperative, comfortable, no acute distress Skin Other: Right medial breast near sternum, 7 mm x 7 mm raised dome-shaped skin lesion present, no changes surrounding skin, nontender Office Procedures 87114 2.1-3 cm T/A/L Performed By: Procedure performed by: Clarissa Casas Details: Plan to do an excision of right medial chest/breast raised skin lesion. Reviewed the procedure with the patient including risks, including but not limited to infection, bleeding, paresthesia of skin near the excision and seroma. All questions were answered. Patient was supine on exam table. A time-out was completed verifying correct patient, procedure, site, position and special equipment prior to beginning procedure. Right medial breast/mid chest was prepped and draped in usual sterile fashion. Local anesthesia of 1% lidocaine with epi was used for a total of 13 mL throughout the procedure. Area of the right medial breast skin lesion was infiltrated with local anesthesia and ellipitical incision was made around the lesion. Incision was made through the skin with a 15 blade scalpel. This was deepened with electrocautery to the subcutaneous tissues. The measurement of raised dome-shaped lesion was 0.8 cm x 0.8 cm x 0.3 cm; however margins of 1 cm taken case this was a Prudence cell she would not need to return for repeat excision and patient is agreeable with plan. Hemostasis was achieved with Hyfrecator. Wound was irrigated with saline. Undermining of the edges were done to allow the incision to close without tension. Incision was closed with subdermal suture of 3-0 Vicryl interrupted and the skin was closed with Steri-Strips. An opsite were placed over the incision. Patient tolerated the procedure well and left the office in stable condition. Procedure Time Out Time Out Informed consent given: Yes Consent signed: Yes Time out checklist: patient, procedure, site marked/identified, positioning of patient, supplies available, allergies confirmed, team agrees on procedure Time out staff in room: Yes Time out verified: Yes Time out date: 05/22/17 Time out time: 13:00 Assessment AND Plan Problems 1. Skin lesion of breast N64.9 Right medial breast near sternum Plan Patient tolerated this procedure well and left the office in good condition. Will call patient for follow-up with pathology results. Patient was agreeable plan. Addendum: Pathology was consistent with hemangioma of the skin, benign. Did discuss with patient as well. Clarissa Casas M.D. Pager: [phone] [facility] [address] [place] [address], [address] [place] [address] Office: [phone] Orders Orders: Plan Detail Follow Up 2 Weeks Coding Level of Care Code No Charge Diagnoses Skin lesion of breast N64.9 Comment [id number] 05/29/17 0930 <Electronically signed by Clarissa Casas MD> Date Clarissa Casas MD Cosigner Signature: Date (if applicable) CC: Gee Leon MD OPERATIVE REPORT Observed: 05/24/2017 Status: F Source: [place] 9:48 AM [facility] [place] [facility] Medical Records Department [address] [place] [address] Operative Report 05/20/17 1515 MR#: [id number] Acct: [id number] Name: RAMSES BRADSHAW Rep #: [id number] : 1965 51 From: Clarissa Casas MD PCP: Gee Leon MD Status: [facility] Location: EN Report of Operation Date of Procedure: 05/20/17 Pre-Operative Diagnosis: Bright red blood per rectum, gastric neuroendocrine tumor Post-Operative Diagnosis: Small sessile distal transverse colon polyp Surgery/Procedure Performed:: Colonoscopy with biopsy Type of Anesthesia:: MAC Anesthesiologist: Lisandro Morales Specimen's removed: 1. Distal transverse colon polyp Estimated Blood Loss (mL): Minimal Description of Procedure: Procedure: Colonoscopy After reviewing the risks benefits, the patient was deemed in satisfactory condition to undergo procedure. After obtaining informed consent, the scope was passed under direct visualization. Throughout the procedure, the patient's blood pressure pulse and position saturations were monitored continuously anesthesia. The colonoscope was introduced through the anus and advanced to the cecum, identified by the IC valve and transillumination. The colonoscopy was performed without difficulty. The patient tolerated procedure well. Quality of bowel prep was good. Findings: The perianal and digital rectal exam were normal. A small sessile polyp in the distal transverse colon was removed with cold forceps biopsies. The colon (entire examined portion) appeared normal. Retroflexed view of the distal rectum and anal verge was normal and showed no anal or rectal abnormalities Impression: 1. Small sessile distal transverse colon polyp. Biopsied 2. The distal rectal and anal verge were normal on retroflexed view. Recommendations: Await biopsy Repeat colonoscopy in 3-5 years for screening purposes depending on biopsy - Complications none 05/24/17 0948 <Electronically signed by Clarissa Casas MD> Date Clarissa Casas MD CC: Gee Leon MD; Clarissa Casas MD Signed LESION (CHOOSE SITE) Observed: 05/22/2017 Status: F Source: [place] 1:00 PM [facility] [place] Patient: RAMSES BRADSHAW : 1965 (51/F) Acct Num: [id number] Phys: Damon GAUTAM,Clarissa Unit Num: [id number] Loc: LABSPEC Specimen: [id number] Received: 05/22/17 2526 Spec Type: Lesion TISSUES TISSUES: Skin of breast, NOS COMMENT This case was discussed with Dr. Casas 05/24/17 at 11:15 a.m. and 05/27/17 at 11:50pm by Dr. Gibbons Immunohistochemistry ([id number]) supports the above diagnosis. Case has been reviewed in consultation with Dr. Wiley who concurs with the above diagnosis. IDC:SJ GROSS DESCRIPTION Received in fixative is one container labeled with the patient's name and designated right medial breast skin lesion. The specimen consists of a piece of aburto-white skin ellipse measuring 3.5 x 2 cm and up to 0.3 cm in thickness. The specimen is oriented by a suture as follows as per Dr. Casas: long lateral, short superior. The specimen is inked as follows: superior margin blue, inferior margin green, lateral tip black and medial tip yellow. The skin surface shows a round, raised lesion measuring 0.5 cm in diameter. The specimen is inked, serially sectioned and submitted entirely in four cassettes as follows: cassette 1 contains the medial and lateral tip, 2-4 rest of the specimen (cassette 3 contains the lesion. / SJ:marty 05/23/17 TC:1 CPT: 57318 HEADER OPERATION: Excision of right chest/breast lesion PRE-OP DIAGNOSIS: History gastric neuroendocrine tumor, ? Prudence cell TISSUE SUBMITTED: Right medial breast, skin lesion MICROSCOPIC DESCRIPTION Slides are reviewed. 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 AM:marty 05/24/17 Signed [facility] 05/27/17 <signature on file> Performed By: #### PLES #### [facility] [address] [place] [address]. [place], [address] IMMUNOHISTOCHEMISTRY Observed: 05/22/2017 Status: F Source: [place] 12:00 [facility] [place] Patient: RAMSES BRADSHAW : 1965 (51/F) Acct Num: [id number] Phys: Damon GAUTAM,Clarissa Unit Num: [id number] Loc: LABSPEC Specimen: [id number] Received: 05/24/171448 Spec Type: IMMUNO TISSUES TISSUES: Skin of breast, NOS SPECIMEN INFORMATION: Tissue Source: Right medial breast, skin lesion Clinical Info: History gastric neuroendocrine tumor, ? Prudence cell Specimen Number: [id number] #3 CPT code: 66656, 39086 x8 METHODOLOGY: Deparaffinized sections of prefer/formalin-fixed tissue or PAP/DQ stained slides are incubated with monoclonal/polyclonal antibodies/oligonucleotide probes. Localization is made via biotin free immunoperoxidase method. Appropriate controls are performed and reacted as expected. Results on target cell population are indicated in the following table: RESULTS: ANTIBODY / CLONE RESULT Block #3 Factor VIII (R Ag) positive CD31 (JANE/70A) positive Vimentin (V9) negative S-100 (4C4.9) negative Neurofil (2F11) negative CD56 (123C3.D5) negative NSE Neuron Specific Enolase negative Chromo (LK2H10) negative Synapto (polyclonal) negative These tests were developed and their performance characteristics determined by [facility]. They may not have been cleared or approved by the U.S. Food and Drug Administration. The FDA has determined that such clearance or approval is not necessary. INTERPRETATION: Right medial breast, skin lesion: Consistent with capillary hemangioma. AM:marty 05/27/17 [facility] [address] [address] Signed [facility] 05/27/17 <signature on file> Performed By: #### PIMM #### [facility] [address] [place], [address] HGB Collected: 05/21/2017 Status: F Source: [facility] 9:25 AM HEALTH SYSTEM REPOSITORY TYPE CODE TESTS RESULT OUT OF RANGE REFERENCE UNITS LAB HGBI(LOINC) 11.2-15.7 g/dL Hgb 13.8 Performed By: #### HGBI #### [facility] [address] [place] [address] HCT Collected: 05/21/2017 Status: F Source: [facility] 9:25 AM HEALTH SYSTEM REPOSITORY TYPE CODE TESTS RESULT OUT OF RANGE REFERENCE UNITS LAB HCTI(LOINC) 34.1-44.9 % Hct 42.0 Performed By: #### HCTI #### [facility] [address] [place] [address] TYPE AND SCREEN Collected: 05/21/2017 Status: F Source: [facility] 9:05 AM HEALTH SYSTEM REPOSITORY TYPE CODE TESTS RESULT OUT OF REFERENCE UNITS RANGE LAB ABO(LOINC) B ABO Group LAB BRAND SALES CONSULTANT(LOINC ) RH Type Negative LAB ABSCR(LOIN C) Antibody NEGATIVE Screen LAB BBCMT(LOIN C) Comment PAT specimen Performed By: #### T&S #### [facility] [address] [place] [address] HISTORY PHYSICAL Observed: 05/21/2017 Status: COMPLETED Source: [place] 8:37 AM CLINIC OTHER CAMPUS REPOSITORY HNO ID: [id number] Author: Kareen Harding (Michela Brody Service: (none) Author Type: Nurse Practitioner Type: HANDP Filed: 05/21/2017 9:12 AM Note Text: HISTORY AND PHYSICAL EXAMINATION SERVICE DATE: 05/21/2017 SERVICE TIME: 8:37 AM PRIMARY CARE PHYSICIAN: Gee Leon MD The patient has the following: ACTIVE PROBLEM LIST 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 Pt states she had an EGD done March 2017 and tumor was discovered. Pt co RLQ pain 6/10 described as a aching, throbbing, and sharp pain. Pain is intermittent. Pain is worse with eating, better with lying on her right side and with use of pain medications. Pt currently takes percocet for pain relief which helps her pain. + nausea/vomiting. + changes in stool ( diarrhea, constipation, blood in stool). CT scan done April 2017. Pt states she had a colonoscopy done yesterday 05/20/2017, which she states a small polyp was found. Discussed risks and benefits with surgeon and agrees to surgical intervention. 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 pacemaker checked [facility] - Sick sinus syndrome (HCC) - Sleep apnea uses cpap at night PAST SURGICAL HISTORY Procedure Laterality Date - APPENDECTOMY - CARPAL TUNNEL left - HYSTERECTOMY HX - LAPAROSCOPY DIAGNOSTIC - PACEMAKER (PM) 2003 - PAST SURGICAL HISTORY OF lumbar pain injections. - [place] ANESTH,LUMBAR SPINE,CORD SURGERY 02/07/2016 L4-L5 fusion; [facility] [place] - REVISE ULNAR NERVE AT ELBOW bilateral- with revisions FAMILY HISTORY Problem Relation Age of Onset - Multiple Sclerosis Father 26 at age 41 - Multiple Sclerosis Daughter 30 dx Mar 2016 - orthostatic hypotension [OTHER] Sister SOCIAL HISTORY: Social History Marital status: Spouse name: Years of education: 14 Number of children: 2 Social History Main Topics Smoking status: Former Smoker Packs/day: 0.50 Years: 25.00 Types: Cigarettes Quit date: 05/22/2015 Smokeless status: Never Used Comment: quit 2 years ago Alcohol use: No Drug use: No Comment: Heavy EtOH use layla 2000. 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 Drinks 2 sodas and 2-3 x 20oz bottles of water daily Prior to Admission medications as of 05/21/17 0845 Medication Sig Last Dose Taking amLODIPine (NORVASC) 5 mg tablet Take 5 mg by mouth. Yes oxyCODONE IR (ROXICODONE) 5 mg immediate release tablet Take 1 tablet by mouth every 6 hours as needed for up to 7 days. Yes ondansetron (ZOFRAN, HYDROCHLORIDE,) 4 mg tablet Take 1 tablet by mouth every 8 hours as needed (for nausea.). Yes pantoprazole DR (PROTONIX) 40 mg tablet Take 40 mg by mouth once daily. Yes sucralfate (CARAFATE) 1 gram tablet TAKE ONE TABLET BY MOUTH FOUR TIMES DAILY ONE hour BEFORE MEALS AND AT BEDTIME Yes lisinopril (PRINIVIL) 20 mg tablet Take 1 tablet by mouth twice daily. Patient taking differently: Take 40 mg by mouth twice daily. Yes cholecalciferol, Vitamin D3, (D3-50 CHOLECALCIFEROL) 50,000 unit cap capsule Take 50,000 Units by mouth once each week. Yes tolterodine ER (DETROL LA) 4 mg 24 hr capsule Take 4 mg by mouth once daily. Yes zolpidem (AMBIEN) 10 mg tab Take 10 mg by mouth daily at bedtime. Yes LORazepam (ATIVAN) 1 mg tablet Take 1 mg by mouth twice daily. Yes nitroglycerin sublingual (NITROQUICK) 0.4 mg SL tablet Dissolve 1 tablet under the tongue as needed. FOR CHEST PAIN. IF NO RELIEF CALL 911 Yes DULoxetine (CYMBALTA) 60 mg capsule Take 60 mg by mouth once daily. Yes Ferrous Fumarate 325 mg (106 mg iron) tab Take 325 mg by mouth twice daily. Yes levothyroxine (LEVOTHROID) 25 mcg tablet Take 25 mcg by mouth once daily. Yes oxyCODONE-acetaminophen (PERCOCET) 10-325 mg tablet Take 1 tablet by mouth every 6 hours as needed. Yes pravastatin (PRAVACHOL) 40 mg tablet Take 40 mg by mouth once daily. Yes Calcium Carbonate-Vitamin D3 (VITAMIN D-3) 180-5,000 mg-unit tab Take by mouth once each week. Yes metoprolol tartrate (LOPRESSOR) 50 mg ORAL Tab Take one half (1/2) tablet twice daily Yes hydrOXYzine pamoate (VISTARIL) 25 mg capsule Take 25 mg by mouth three times daily as needed. ARIPIPRAZOLE (ABILIFY ORAL) Take by mouth once daily. benztropine (COGENTIN) 1 mg tablet Take 1 mg by mouth twice daily. Omeprazole Magnesium 20 mg cpDR Take 20 mg by mouth once daily. No medication comments found. ALLERGIES Allergen Reactions - Asa [Salicylates] - Erythromycin - Ibuprofen - Latex Unknown - Nsaids (Non-Steroid* Diarrhea, Vomiting REVIEW OF SYSTEMS: PAIN ASSESSMENT: Pain Pain Score: 6/10 Pain Location: Abdomen-Right Lower Quadrant Description: Aching;Throbbing;Sharp Frequency: Intermittent Intervention: Reposition General: Denies fever, chills, and unexpected weight change. + sweats throughout the day. Neuro: + dizziness .+ headaches. Respiratory: Denies SOB and cough. Cardiovascular: Denies CP and palpitations. GI: + abd pain. + N/V/D, see hpi . : Denies dysuria and frequency. Endocrine: No history of diabetes. Hematology: Denies history of bleeding or clotting disorder. Musculoskeletal: Denies joint pain and swelling. Skin: Denies open sores and rashes. Objective PHYSICAL EXAM: VITALS: BP 113/65 Pulse 55 Temp 97 Resp 18 Ht 5' 2 (1.58m) Wt 173 lb (78.5kg) SpO2 95% BMI 31.63 kg/(m2). General: NAD. Cooperative. Skin: Skin is warm, no rashes, and no open sores. HEENT: Normocephalic. Cardiovascular: Normal S1 AND S2. No murmur. + pacemaker Lungs: CTA. No respiratory distress. Abdomen: Soft. Extremities: + BLE edema. Neurological: Alert and oriented to person, place, and time. Pulses: radial pulses +2 Assessment/Plan Benign neuroendocrine tumor of stomach, Biliary colic METS: Do moderate work around the house such as vacuuming, sweeping floors, or carrying in groceries (3.50 METs) Would have sob with a flight of stairs, denies chest pain ANESTHESIA FINDINGS: Intubation History: No history of difficult intubation Significant Anesthesia Considerations: None PLAN Planned Procedure: LAPAROSCOPIC GASTRECTOMY, PARTIAL; WITH GASTROJEJUNOSTOMY, LAPAROSCOPIC CHOLECYSTECTOMY WITH GRAMS The Following Tests/Procedures Have Been Initiated: Type and cross, h/h Planned Anesthetic: General Instructions Given to Patient: Patient given verbal and written preop instructions and voices comprehension and compliance. SIGNATURE: Kareen Brody CNP PATIENT NAME: Ramses Bradshaw DATE: May 21, 2017 TIME: 8:37 AM PAGER/CONTACT #: NURSING PROG Observed: 05/20/2017 Status: COMPLETED Source: [place] 2:00 PM CLINIC OTHER CAMPUS REPOSITORY HNO ID: [id number] Author: Charu (Carmela) CARMELA Barillas Service: (none) Author Type: Registered Nurse Type: Nursing Progress Note Filed: 05/20/2017 2:08 PM Note Text: PER DEVICE CLINIC RECOMMENDATION (KAM/CARMELA): USE MAGNET WITH CAUTERY IF NEEDED. 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 Required: No Is patient in pain?: Yes (ruq pain) Pain scale (1-10): 8 Allergies erythromycin base [Erythromycin Base] Adverse Reaction (Verified 05/17/17 13:40) Vomiting,diarrhea NSAIDS (Non-Steroidal Anti-Inflamma Adverse Reaction (Verified 05/17/17 13:40) Vomiting,diarrhea percocet Allergy (Mild, Uncoded 05/17/17 13:40) Unknown shellfish Allergy (Mild, Uncoded 05/17/17 13:40) Unknown Medications Duloxetine Hcl [Cymbalta] 60 mg PO DAILY 03/28/15 [History Confirmed 05/17/17] Levothyroxine [Synthroid] 25 mcg PO DAILY 03/28/15 [History Confirmed 05/17/17] Lisinopril [Zestril] 40 mg PO BID 03/28/15 [History Confirmed 05/17/17] Metoprolol Tartrate [Lopressor (beta aislinn)] 25 mg PO BID 03/28/15 [History Confirmed 05/17/17] Omeprazole [Prilosec] 20 mg PO DAILY 04/18/16 [History Confirmed 05/17/17] Tolterodine Tartrate [Tolterodine Tartrate ER] 4 mg PO DAILY 04/18/16 [History Confirmed 05/17/17] Lorazepam [Ativan] 1 mg PO BID 08/22/16 [History Confirmed 05/17/17] Ferrous Sulfate 325 mg PO BID 09/11/16 [History Confirmed 05/17/17] Zolpidem Tartrate [Ambien] 10 mg PO QHS 09/11/16 [History Confirmed 05/17/17] Ondansetron [Zofran Odt] 4 mg PO Q8H PRN PRN #10 tab 03/06/17 [Rx Confirmed 05/17/17] Meclizine HCl [Antivert] 25 mg PO BID PRN PRN 04/05/17 [History Confirmed 05/17/17] Pantoprazole Sodium [Protonix] 40 mg PO DAILY #30 tab 04/08/17 [Rx Confirmed 05/17/17] Sucralfate [Carafate] 1 gm PO 4X/DAY #120 tab 04/08/17 [Rx Confirmed 05/17/17] Oxycodone [Oxyir] 5 - 10 mg PO Q6H PRN PRN 3 Days #20 tab 04/11/17 [Rx Confirmed 05/17/17] Amlodipine [Norvasc] 5 mg PO DAILY 05/17/17 [History Confirmed 05/17/17] PFSH Medical History Neuroendocrine neoplasm of stomach (Acute) History of anxiety disorder (Chronic) Benign essential hypertension (Chronic) Obesity (Chronic) Familial combined hyperlipidemia (Chronic) Tobacco dependence syndrome (Chronic) Chronic pain syndrome (Chronic) Chest tightness (Acute) Chronic lower back pain (Chronic) Sinus pause (Chronic) h/o back surgery (Acute) Surgical History Status post placement of cardiac pacemaker (Chronic) S/P appendectomy (Acute) S/P hysterectomy (Acute) S/P laparoscopy (Acute) S/P laparotomy (Acute) Family History Daughter Asthma Father Heart disease Hypertension CAD (coronary artery disease) Social History Smoking Status: Former smoker alcohol intake: never HPI HPI HPI: RAMSES BRADSHAW, is a 51 F who presents to the office today for bleeding per rectum started about a few weeks ago. Pt reports bright red blood on TP and in toilet with some clots- bleeding with only BM, denies them being hard, has BM every 2-3 days, still has the same abd pain RUQ AND LUQ, +N still unchanged. denies previous colonoscopy or FH of colon cancer. PMH of newly dx neuroendocrine tumor of stomach- surgery scheduled May 30 at [facility] with Dr. Ali. [facility] G[facility] Gastrointestinal: Yes abdominal pain, Yes nausea or vomiting, Yes diarrhea, Yes constipation, Yes blood in stool, No black,tarry stools Exam Const General: cooperative, comfortable, no acute distress GI Other: S/ND, +ttp RUQ AND LUQ and occ. RLQ, no PS, deferred rectal exam Assessment AND Plan Problems 1. Bleeding per rectum K62.5 Plan I have discussed the above with the patient. I have offered the patient dx colonoscopy for evaluation. I have explained the risks/benefits of the procedure and described the procedure. I have discussed the risks with the patient, including but not limited to: infection, bleeding, perforation of the GI tract requiring emergency surgery, inability to complete the procedure, injury to any internal organs, complications of anesthesia, etc. - the patient understands and agrees to proceed. I have answered all the patient's questions to the patient's satisfaction and the patient has no further questions. The patient has been given instructions for the colon cleansing preparation.-2 day prep with magnesium citrate the first day and MiraLAX Dulcolax split dose second day. Clarissa Casas M.D. Pager: [phone] [facility] [address] [place] [address], [address] [place] [address] Office: [phone] Orders Orders: Plan Detail Follow Up 1 ( will schedule colonoscopy) Coding Level of Care Code Off vis,est,level 3 Diagnoses Bleeding per rectum K62.5 05/20/17 1311 <Electronically signed by Clarissa Casas MD> Date Clarissa Casas MD Cosigner Signature: Date (if applicable) CC: Gee Leon MD PROGRESS Observed: 05/20/2017 Status: COMPLETED Source: [place] 12:18 PM CLINIC OTHER CAMPUS REPOSITORY HNO ID: [id number] Author: Beba SalcidoRn) CARMELA Sung Service: (none) Author Type: Registered Nurse Type: Progress Notes Filed: 05/20/2017 12:20 PM Note Text: PT. HAS A PACEMAKER ; PACER INFORMATION OBTAINED FROM [place] AND FAXED TO [facility], AWAITING RECOMMENDATION PROGRESS Observed: 05/20/2017 Status: COMPLETED Source: [place] 1:01 AM CLINIC OTHER CAMPUS REPOSITORY HNO ID: [id number] Author: Giovanni Hernández Service: (none) Author Type: Physician Type: Progress Notes Filed: 05/20/2017 1:04 AM Note Text: Patient referred by: Giovanni Hernández MD 1 [facility] [address] [facility] [address] Patient presents with: Follow Up HPI: This is a follow-up visit. 51-year-old female here to go the results of her CT scan. Since her last visit she has developed blood in her stool. It is bright red in color. She still has diffuse abdominal pain. She has pain in the right upper quadrant. She has no nausea or vomiting. She has no fevers or chills. She denies any jaundice. She still has occasional palpitations. PAST MEDICAL HISTORY Diagnosis Date - Depression - Hypertension - Hypothyroid - Sick sinus syndrome (HCC) PAST SURGICAL HISTORY Procedure Laterality Date - APPENDECTOMY - CARPAL TUNNEL left - HYSTERECTOMY HX - LAPAROSCOPY DIAGNOSTIC - PACEMAKER (PM) 2003 - PAST SURGICAL HISTORY OF lumbar pain injections. - [place] ANESTH,LUMBAR SPINE,CORD SURGERY 02/07/2016 L4-L5 fusion; [facility] - REVISE ULNAR NERVE AT ELBOW bilateral- with revisions FAMILY HISTORY Problem Relation Age of Onset - Multiple Sclerosis Father 26 at age 41 - Multiple Sclerosis Daughter 30 dx Mar 2016 - orthostatic hypotension [OTHER] Sister Social History Marital status: Spouse name: Years of education: 14 Number of children: 2 Social History Main Topics Smoking status: Former Smoker Packs/day: 0.50 Years: 27.00 Types: Cigarettes Smokeless status: Never Used Comment: Vapor Pen only. 6mg Nicotine Alcohol use: No Drug use: No Comment: Heavy EtOH use unt2000. 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 (PROTONIX) 40 mg tablet Take 40 mg by mouth once daily. sucralfate (CARAFATE) 1 gram tablet TAKE ONE TABLET BY MOUTH FOUR TIMES DAILY ONE hour BEFORE MEALS AND AT BEDTIME lisinopril (PRINIVIL) 20 mg tablet Take 1 tablet by mouth twice daily. (Patient taking differently: Take 40 mg by mouth twice daily. ) cholecalciferol, Vitamin D3, (D3-50 CHOLECALCIFEROL) 50,000 unit cap capsule Take 50,000 Units by mouth once each week. tolterodine ER (DETROL LA) 4 mg 24 hr capsule Take 4 mg by mouth once daily. zolpidem (AMBIEN) 10 mg tab Take 10 mg by mouth daily at bedtime. LORazepam (ATIVAN) 1 mg tablet Take 1 mg by mouth twice daily. nitroglycerin sublingual (NITROQUICK) 0.4 mg SL tablet Dissolve 1 tablet under the tongue as needed. FOR CHEST PAIN. IF NO RELIEF CALL 911 DULoxetine (CYMBALTA) 60 mg capsule Take 60 mg by mouth once daily. Ferrous Fumarate 325 mg (106 mg iron) tab Take 325 mg by mouth twice daily. gabapentin (NEURONTIN) 600 mg tablet Take 600 mg by mouth twice daily. levothyroxine (LEVOTHROID) 25 mcg tablet Take 25 mcg by mouth once daily. oxyCODONE-acetaminophen (PERCOCET) 10-325 mg tablet Take 1 tablet by mouth every 6 hours as needed. pravastatin (PRAVACHOL) 40 mg tablet Take 40 mg by mouth once daily. Calcium Carbonate-Vitamin D3 (VITAMIN D-3) 180-5,000 mg-unit tab Take by mouth once each week. metoprolol tartrate (LOPRESSOR) 50 mg ORAL Tab Take one half (1/2) tablet twice daily ondansetron (ZOFRAN, HYDROCHLORIDE,) 4 mg tablet Take 1 tablet by mouth every 8 hours as needed (for nausea.). hydrOXYzine pamoate (VISTARIL) 25 mg capsule Take 25 mg by mouth three times daily as needed. ARIPIPRAZOLE (ABILIFY ORAL) Take by mouth once daily. benztropine (COGENTIN) 1 mg tablet Take 1 mg by mouth twice daily. Omeprazole Magnesium 20 mg cpDR Take 20 mg by mouth once daily. No current facility-administered medications for this visit. ALLERGIES Allergen Reactions - Asa [Salicylates] - Erythromycin - Ibuprofen - Latex Unknown - Nsaids (Non-Steroid* Diarrhea, Vomiting REVIEW OF SYSTEMS: GENERAL: No weight loss, malaise or fevers GI: Negative for nausea , vomiting, diarrhea, constipation and signs of jaundice Positive for abdominal pain RUQ and Melena PHYSICAL EXAM: BP 150/100 Pulse 82 Ht 5' 2.5 (1.59m) Wt 176 lb 3.2 oz (79.9kg) SpO2 98% BMI 31.69 kg/(m2). GENERAL APPEARANCE: Well appearing, alert, in no acute distress, well-hydrated, well nourished., Overweight. ABDOMEN: Abdomen is soft. There is tenderness palpation in the right upper quadrant. This or rebound or guarding. On rectal exam there is no evidence of perianal pathology. There is no gross blood on rectal exam. NEURO: Alert, oriented x3, no asterixis, speech clear and articulate and YAÑEZ DATA: Diagnostic tests reviewed for today's visit: Most recent imaging A total of 25 minutes was spent in direct patient contact.Greater than 50% of the direct patient contact time was spent in counseling or coordination of care. ASSESSMENT / PLAN 1. Benign neuroendocrine tumor of stomach I reviewed her most recent CT scan. This shows no evidence of metastasis from her neuroendocrine tumor of her stomach. She is having blood in her stool I will refer her for colonoscopy back to [facility]. We will tentatively plan on a laparoscopic partial gastrectomy and the lap scopic cholecystectomy. Risk and benefits of the operation including but not exclusive to bleeding infection and possibility postoperative leak were discussed with the patient and she wishes to proceed with the operation. We'll schedule her in next several weeks. - oxyCODONE IR (ROXICODONE) 5 mg immediate release tablet; Take 1 tablet by mouth every 6 hours as needed for up to 7 days. Dispense: 50 tablet; Refill: 0 Giovanni Hernández MD COLON BIOPSY (CHOOSE Observed: 05/20/2017 Status: F Source: [facility]) 12:[facility] AM [facility] [place] Patient: RAMSES BRADSHAW : 1965 (51/F) Acct Num: [id number] Phys: Damon GAUTAM,[facility] Unit Num: [id number] Loc: EN Specimen: [id number] Received: 05/20/17 1555 Spec Type: COLON BX TISSUES TISSUES: POLYP GROSS DESCRIPTION Received in fixative is one container labeled with the patient's name and designated distal transverse colon polyp. The specimen consists of two irregular fragments of light aburto soft tissue that in aggregate measure 0.3 x 0.3 x 0.1 cm. The specimen is totally submitted in one cassette. / AM:marty 05/21/17 TC:1 CPT: 23330 HEADER OPERATION: Colonoscopy PRE-OP DIAGNOSIS: Screening TISSUE SUBMITTED: Distal transverse polyp biopsy MICROSCOPIC DESCRIPTION Slides are reviewed. MICROSCOPIC DIAGNOSIS Distal transverse colon polyp, biopsy: Hyperplastic polyp. SJ:marty 05/22/17 Signed Kam Wiley 05/22/17 <signature on file> Performed By: #### PCOLBX #### [facility] [address] [place] [address], [id number] [facility] Observed: 05/15/2017 Status: COMPLETED Source: [place] 12:00 AM CLINIC OTHER CAMPUS REPOSITORY Patient:Ramses Bradshaw MRN: <[id number]> Height:5' 2(1.575 m) Weight:173 lb (78.472 kg) Outpatient Medications as of 05/30/17: meclizine (MOTION RELIEF, MECLIZINE,) 25 mg tab amLODIPine (NORVASC) 5 mg tablet oxyCODONE IR (ROXICODONE) 5 mg immediate release tablet ondansetron (ZOFRAN, HYDROCHLORIDE,) [address] (PROTONIX) 40 mg tablet sucralfate (CARAFATE) 1 gram tablet lisinopril (PRINIVIL) 20 mg tablet cholecalciferol, Vitamin D3, (D3-50 CHOLECALCIFEROL) 50,000 unit cap capsule tolterodine ER (DETROL LA) 4 mg 24 hr capsule zolpidem (AMBIEN) 10 mg tab LORazepam (ATIVAN) 1 mg tablet DULoxetine (CYMBALTA) 60 mg capsule Ferrous Fumarate 325 mg (106 mg iron) tab levothyroxine (LEVOTHROID) 25 mcg tablet Calcium Carbonate-Vitamin D3 (VITAMIN D-3) 180-5,000 mg-unit tab metoprolol tartrate (LOPRESSOR) 50 mg ORAL Tab nitroglycerin sublingual (NITROQUICK) 0.4 mg SL tablet hydrOXYzine pamoate (VISTARIL) 25 mg capsule ARIPIPRAZOLE (ABILIFY ORAL) benztropine (COGENTIN) 1 mg tablet Omeprazole Magnesium 20 mg cpDR oxyCODONE-acetaminophen (PERCOCET) 10-325 mg tablet Admission/Clinic Administered Medications as of 05/30/17: lidocaine 10 mg/mL (1 %) 1-2 mg injection (XYLOCAINE) lactated ringers infusion ciprofloxacin 400 mg in D5W 200 mL (CIPRO) metroNIDAZOLE 500 mg PREMIX piggyback (FLAGYL) Problem List: Carbuncle and furuncle of unspecified site [L02.92, L02.93] Sinoatrial node dysfunction (HCC) [I49.5] Cardiac pacemaker in situ [Z95.0] Spinal stenosis, lumbar region, with neurogenic claudication [M48.062] Degeneration of lumbar or lumbosacral intervertebral disc [M51.37] Gastric mass [K31.9] Allergies: Asa [Salicylates] Erythromycin Ibuprofen Latex Nsaids (Non-Steroidal Anti-Inflammatory Drug) Date Verified: 05/30/17 Lab Values Lab Value Units Date High Low NOEL* 42.0 % 05/21/2017 44.9 34.1 Progress Notes (PRE SURG TESTING [facility]): Beba Sung, RN, RN 05/20/2017 12:20 PM Signed PT. HAS A PACEMAKER ; PACER INFORMATION OBTAINED FROM [facility] AND FAXED TO [facility], AWAITING RECOMMENDATION Kareen Brody APRN.BEDSPREAD CUTTER 05/21/2017 9:12 AM Signed HISTORY AND PHYSICAL EXAMINATION SERVICE DATE: 05/21/2017 SERVICE TIME: 8:37 AM PRIMARY CARE PHYSICIAN: Gee Leon MD The patient has the following: ACTIVE PROBLEM LIST 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 Pt states she had an EGD done March 2017 and tumor was discovered. Pt co RLQ pain 6/10 described as a aching, throbbing, and sharp pain. Pain is intermittent. Pain is worse with eating, better with lying on her right side and with use of pain medications. Pt currently takes percocet for pain relief which helps her pain. + nausea/vomiting. + changes in stool ( diarrhea, constipation, blood in stool). CT scan done April 2017. Pt states she had a colonoscopy done yesterday 05/20/2017, which she states a small polyp was found. Discussed risks and benefits with surgeon and agrees to surgical intervention. 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 pacemaker checked at [facility] - Sick sinus syndrome (HCC) - Sleep apnea uses cpap at night PAST SURGICAL HISTORY Procedure Laterality Date - APPENDECTOMY - CARPAL TUNNEL left - HYSTERECTOMY HX - LAPAROSCOPY DIAGNOSTIC - PACEMAKER (PM) 2003 - PAST SURGICAL HISTORY OF lumbar pain injections. - [place] ANESTH,LUMBAR SPINE,CORD SURGERY 02/07/2016 L4-L5 fusion; [facility] - REVISE ULNAR NERVE AT ELBOW bilateral- with revisions FAMILY HISTORY Problem Relation Age of Onset - Multiple Sclerosis Father 26 at age 41 - Multiple Sclerosis Daughter 30 dx Mar 2016 - orthostatic hypotension [OTHER] Sister SOCIAL HISTORY: Social History Marital status: Spouse name: Years of education: 14 Number of children: 2 Social History Main Topics Smoking status: Former Smoker Packs/day: 0.50 Years: 25.00 Types: Cigarettes Quit date: 05/22/2015 Smokeless status: Never Used Comment: quit 2 years ago Alcohol use: No Drug use: No Comment: Heavy EtOH use unt 2000. 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 Drinks 2 sodas and 2-3 x 20oz bottles of water daily Prior to Admission medications as of 05/21/17 0845 Medication Sig Last Dose Taking amLODIPine (NORVASC) 5 mg tablet Take 5 mg by mouth. Yes oxyCODONE IR (ROXICODONE) 5 mg immediate release tablet Take 1 tablet by mouth every 6 hours as needed for up to 7 days. Yes ondansetron (ZOFRAN, HYDROCHLORIDE,) 4 mg tablet Take 1 tablet by mouth every 8 hours as needed (for nausea.). Yes pantoprazole DR (PROTONIX) 40 mg tablet Take 40 mg by mouth once daily. Yes sucralfate (CARAFATE) 1 gram tablet TAKE ONE TABLET BY MOUTH FOUR TIMES DAILY ONE hour BEFORE MEALS AND AT BEDTIME Yes lisinopril (PRINIVIL) 20 mg tablet Take 1 tablet by mouth twice daily. Patient taking differently: Take 40 mg by mouth twice daily. Yes cholecalciferol, Vitamin D3, (D3-50 CHOLECALCIFEROL) 50,000 unit cap capsule Take 50,000 Units by mouth once each week. Yes tolterodine ER (DETROL LA) 4 mg 24 hr capsule Take 4 mg by mouth once daily. Yes zolpidem (AMBIEN) 10 mg tab Take 10 mg by mouth daily at bedtime. Yes LORazepam (ATIVAN) 1 mg tablet Take 1 mg by mouth twice daily. Yes nitroglycerin sublingual (NITROQUICK) 0.4 mg SL tablet Dissolve 1 tablet under the tongue as needed. FOR CHEST PAIN. IF NO RELIEF CALL 911 Yes DULoxetine (CYMBALTA) 60 mg capsule Take 60 mg by mouth once daily. Yes Ferrous Fumarate 325 mg (106 mg iron) tab Take 325 mg by mouth twice daily. Yes levothyroxine (LEVOTHROID) 25 mcg tablet Take 25 mcg by mouth once daily. Yes oxyCODONE-acetaminophen (PERCOCET) 10-325 mg tablet Take 1 tablet by mouth every 6 hours as needed. Yes pravastatin (PRAVACHOL) 40 mg tablet Take 40 mg by mouth once daily. Yes Calcium Carbonate-Vitamin D3 (VITAMIN D-3) 180-5,000 mg-unit tab Take by mouth once each week. Yes metoprolol tartrate (LOPRESSOR) 50 mg ORAL Tab Take one half (1/2) tablet twice daily Yes hydrOXYzine pamoate (VISTARIL) 25 mg capsule Take 25 mg by mouth three times daily as needed. ARIPIPRAZOLE (ABILIFY ORAL) Take by mouth once daily. benztropine (COGENTIN) 1 mg tablet Take 1 mg by mouth twice daily. Omeprazole Magnesium 20 mg cpDR Take 20 mg by mouth once daily. No medication comments found. ALLERGIES Allergen Reactions - Asa [Salicylates] - Erythromycin - Ibuprofen - Latex Unknown - Nsaids (Non-Steroid* Diarrhea, Vomiting REVIEW OF SYSTEMS: PAIN ASSESSMENT: Pain Pain Score: 6/10 Pain Location: Abdomen-Right Lower Quadrant Description: Aching;Throbbing;Sharp Frequency: Intermittent Intervention: Reposition General: Denies fever, chills, and unexpected weight change. + sweats throughout the day. Neuro: + dizziness .+ headaches. Respiratory: Denies SOB and cough. Cardiovascular: Denies CP and palpitations. GI: + abd pain. + N/V/D, see hpi . : Denies dysuria and frequency. Endocrine: No history of diabetes. Hematology: Denies history of bleeding or clotting disorder. Musculoskeletal: Denies joint pain and swelling. Skin: Denies open sores and rashes. Objective PHYSICAL EXAM: VITALS: BP 113/65 Pulse 55 Temp 97 Resp 18 Ht 5' 2 (1.58m) Wt 173 lb (78.5kg) SpO2 95% BMI 31.63 kg/(m2). General: NAD. Cooperative. Skin: Skin is warm, no rashes, and no open sores. HEENT: Normocephalic. Cardiovascular: Normal S1 AND S2. No murmur. + pacemaker Lungs: CTA. No respiratory distress. Abdomen: Soft. Extremities: + BLE edema. Neurological: Alert and oriented to person, place, and time. Pulses: radial pulses +2 Assessment/Plan Benign neuroendocrine tumor of stomach, Biliary colic METS: Do moderate work around the house such as vacuuming, sweeping floors, or carrying in groceries (3.50 METs) Would have sob with a flight of stairs, denies chest pain ANESTHESIA FINDINGS: Intubation History: No history of difficult intubation Significant Anesthesia Considerations: None PLAN Planned Procedure: LAPAROSCOPIC GASTRECTOMY, PARTIAL; WITH GASTROJEJUNOSTOMY, LAPAROSCOPIC CHOLECYSTECTOMY WITH GRAMS The Following Tests/Procedures Have Been Initiated: Type and cross, h/h Planned Anesthetic: General Instructions Given to Patient: Patient given verbal and written preop instructions and voices comprehension and compliance. SIGNATURE: Kareen Brody CNP PATIENT NAME: Ramses Bradshaw DATE: May 21, 2017 TIME: 8:37 AM PAGER/CONTACT #: Kareen Brody APRN.CNP 05/21/2017 8:39 AM Signed PATIENT PREOPERATIVE INSTRUCTIONS Giovanni Hernández MD has scheduled you for your procedure at this surgery center: [facility]: [phone], [address] [phone] Please read below carefully for your personalized instructions. Arrival Time for Surgery: 05/30/2017 Arrive:1115am Scheduled:115pm Please be aware that emergency situations arise, which may delay or change your surgical time. If this happens, we will notify you as soon as possible and regret any inconvenience. Blood Thinning Medications: - Stop NSAIDS (Ibuprofen, Advil, Aleve, Motrin, Celebrex, Mobic, etc.) 5 days before surgery, as directed by your surgeon. - You may take Tylenol (Acetaminophen) or any of your pain medications that do not contain aspirin or NSAIDS as needed. - Check with surgeon regarding when to stop Aspirin, Coumadin, Plavix, Pradaxa, Eliquis if taking - Stop ALL multi-vitamins, Vitamin E, fish oil, herbals and dietary supplements 5 days before surgery. Medications: Approved medications to take the morning of surgery with a sip of water: Take Blood pressure, cardiac, pain, thyroid medications (levothyroxine, metoprolol, amlodipine, lisinopril) Pain Medications: - Please continue your current pain medications. If taking insulin, please check with PCP or surgeon regarding dosage If you start any new medications after today's visit, please contact the surgery center above. Dietary Restrictions: - Nothing to eat or drink after midnight except for a sip of water with approved medications. Important Reminders: - If you use CPAP/BIPAP, bring the machine with you to the surgery center. - If you are prescribed inhalers for breathing, continue using them AND bring them to the surgery center. - No lotion, cream, powder on body morning of surgery - Candy, mints, gum and tobacco products are NOT permitted the morning of surgery. - Hearing aids, dentures and glasses may be worn the morning of surgery. - NO jewelry, body piercings, makeup, nail hebrew, hairpins or contacts are to be worn the day of surgery. If you develop symptoms such as a fever, cold, or flu, or have other changes to your health within TWO DAYS of scheduled surgery or the morning of surgery, please contact the surgery center above. Personal Belongings: - Leave ALL valuables and money at home or with family members. Kareen Brody CNP Progress Notes (GENS AG ACC 374): Giovanni Hernández MD 05/14/2017 3:37 PM Signed Office will call with date and time for surgery Giovanni Hernández MD 05/20/2017 1:04 AM Signed Patient referred by: Giovanni Hernández MD 1 [facility] [address] [facility] [address] Patient presents with: Follow Up HPI: This is a follow-up visit. 51-year-old female here to go the results of her CT scan. Since her last visit she has developed blood in her stool. It is bright red in color. She still has diffuse abdominal pain. She has pain in the right upper quadrant. She has no nausea or vomiting. She has no fevers or chills. She denies any jaundice. She still has occasional palpitations. PAST MEDICAL HISTORY Diagnosis Date - Depression - Hypertension - Hypothyroid - Sick sinus syndrome (HCC) PAST SURGICAL HISTORY Procedure Laterality Date - APPENDECTOMY - CARPAL TUNNEL left - HYSTERECTOMY HX - LAPAROSCOPY DIAGNOSTIC - PACEMAKER (PM) 2003 - PAST SURGICAL HISTORY OF lumbar pain injections. - [place] ANESTH,LUMBAR SPINE,CORD SURGERY 02/07/2016 L4-L5 fusion; [facility] [place] - REVISE ULNAR NERVE AT ELBOW bilateral- with revisions FAMILY HISTORY Problem Relation Age of Onset - Multiple Sclerosis Father 26 at age 41 - Multiple Sclerosis Daughter 30 Mar 2016 - orthostatic hypotension [OTHER] Sister Social History Marital status: Spouse name: Years of education: 14 Number of children: 2 Social History Main Topics Smoking status: Former Smoker Packs/day: 0.50 Years: 27.00 Types: Cigarettes Smokeless status: Never Used Comment: Vapor Pen only. 6mg Nicotine Alcohol use: No Drug use: No Comment: Heavy EtOH use layla 2000. 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 (PROTONIX) 40 mg tablet Take 40 mg by mouth once daily. sucralfate (CARAFATE) 1 gram tablet TAKE ONE TABLET BY MOUTH FOUR TIMES DAILY ONE hour BEFORE MEALS AND AT BEDTIME lisinopril (PRINIVIL) 20 mg tablet Take 1 tablet by mouth twice daily. (Patient taking differently: Take 40 mg by mouth twice daily. ) cholecalciferol, Vitamin D3, (D3-50 CHOLECALCIFEROL) 50,000 unit cap capsule Take 50,000 Units by mouth once each week. tolterodine ER (DETROL LA) 4 mg 24 hr capsule Take 4 mg by mouth once daily. zolpidem (AMBIEN) 10 mg tab Take 10 mg by mouth daily at bedtime. LORazepam (ATIVAN) 1 mg tablet Take 1 mg by mouth twice daily. nitroglycerin sublingual (NITROQUICK) 0.4 mg SL tablet Dissolve 1 tablet under the tongue as needed. FOR CHEST PAIN. IF NO RELIEF CALL 911 DULoxetine (CYMBALTA) 60 mg capsule Take 60 mg by mouth once daily. Ferrous Fumarate 325 mg (106 mg iron) tab Take 325 mg by mouth twice daily. gabapentin (NEURONTIN) 600 mg tablet Take 600 mg by mouth twice daily. levothyroxine (LEVOTHROID) 25 mcg tablet Take 25 mcg by mouth once daily. oxyCODONE-acetaminophen (PERCOCET) 10-325 mg tablet Take 1 tablet by mouth every 6 hours as needed. pravastatin (PRAVACHOL) 40 mg tablet Take 40 mg by mouth once daily. Calcium Carbonate-Vitamin D3 (VITAMIN D-3) 180-5,000 mg-unit tab Take by mouth once each week. metoprolol tartrate (LOPRESSOR) 50 mg ORAL Tab Take one half (1/2) tablet twice daily ondansetron (ZOFRAN, HYDROCHLORIDE,) 4 mg tablet Take 1 tablet by mouth every 8 hours as needed (for nausea.). hydrOXYzine pamoate (VISTARIL) 25 mg capsule Take 25 mg by mouth three times daily as needed. ARIPIPRAZOLE (ABILIFY ORAL) Take by mouth once daily. benztropine (COGENTIN) 1 mg tablet Take 1 mg by mouth twice daily. Omeprazole Magnesium 20 mg cpDR Take 20 mg by mouth once daily. No current facility-administered medications for this visit. ALLERGIES Allergen Reactions - Asa [Salicylates] - Erythromycin - Ibuprofen - Latex Unknown - Nsaids (Non-Steroid* Diarrhea, Vomiting REVIEW OF SYSTEMS: GENERAL: No weight loss, malaise or fevers GI: Negative for nausea , vomiting, diarrhea, constipation and signs of jaundice Positive for abdominal pain RUQ and Melena PHYSICAL EXAM: BP 150/100 Pulse 82 Ht 5' 2.5 (1.59m) Wt 176 lb 3.2 oz (79.9kg) SpO2 98% BMI 31.69 kg/(m2). GENERAL APPEARANCE: Well appearing, alert, in no acute distress, well-hydrated, well nourished., Overweight. ABDOMEN: Abdomen is soft. There is tenderness palpation in the right upper quadrant. This or rebound or guarding. On rectal exam there is no evidence of perianal pathology. There is no gross blood on rectal exam. NEURO: Alert, oriented x3, no asterixis, speech clear and articulate and YAÑEZ DATA: Diagnostic tests reviewed for today's visit: Most recent imaging A total of 25 minutes was spent in direct patient contact.Greater than 50% of the direct patient contact time was spent in counseling or coordination of care. ASSESSMENT / PLAN 1. Benign neuroendocrine tumor of stomach I reviewed her most recent CT scan. This shows no evidence of metastasis from her neuroendocrine tumor of her stomach. She is having blood in her stool I will refer her for colonoscopy back to [facility]. We will tentatively plan on a laparoscopic partial gastrectomy and the lap scopic cholecystectomy. Risk and benefits of the operation including but not exclusive to bleeding infection and possibility postoperative leak were discussed with the patient and she wishes to proceed with the operation. We'll schedule her in next several weeks. - oxyCODONE IR (ROXICODONE) 5 mg immediate release tablet; Take 1 tablet by mouth every 6 hours as needed for up to 7 days. Dispense: 50 tablet; Refill: 0 Giovanni Hernández MD CNOV Observed: 05/14/2017 Status: COMPLETED Source: [place] 2:45 PM [facility] OTHER CAMPUS REPOSITORY Office Visit (AGGENS1) RAMSES BRADSHAW ([id number]) 1965 F Date Time Provider Department 05/14/17 2:45 PM GIOVANNI HERNÁNDEZ AGGENS1 During your visit today, we recorded the following information about you: Pulse Blood pressure Weight Height 82/minute 150/100 79.9 kg 1.588 m Giovanni Hernández MD 05/14/2017 3:37 PM Signed Office will call with date and time for surgery Giovanni Hernández MD 05/20/2017 1:04 AM Signed Patient referred by: Giovanni Hernández MD 1 [facility] [address] [facility] [address] Patient presents with: Follow Up HPI: This is a follow-up visit. 51-year-old female here to go the results of her CT scan. Since her last visit she has developed blood in her stool. It is bright red in color. She still has diffuse abdominal pain. She has pain in the right upper quadrant. She has no nausea or vomiting. She has no fevers or chills. She denies any jaundice. She still has occasional palpitations. PAST MEDICAL HISTORY Diagnosis Date - Depression - Hypertension - Hypothyroid - Sick sinus syndrome (HCC) PAST SURGICAL HISTORY Procedure Laterality Date - APPENDECTOMY - CARPAL TUNNEL left - HYSTERECTOMY HX - LAPAROSCOPY DIAGNOSTIC - PACEMAKER (PM) 2003 - PAST SURGICAL HISTORY OF lumbar pain injections. - [place] ANESTH,LUMBAR SPINE,CORD SURGERY 02/07/2016 L4-L5 fusion; [facility] - REVISE ULNAR NERVE AT ELBOW bilateral- with revisions FAMILY HISTORY Problem Relation Age of Onset - Multiple Sclerosis Father 26 at age 41 - Multiple Sclerosis Daughter 30 dx Mar 2016 - orthostatic hypotension [OTHER] Sister Social History Marital status: Spouse name: Years of education: 14 Number of children: 2 Social History Main Topics Smoking status: Former Smoker Packs/day: 0.50 Years: 27.00 Types: Cigarettes Smokeless status: Never Used Comment: Vapor Pen only. 6mg Nicotine Alcohol use: No Drug use: No Comment: Heavy EtOH use layla 2000. 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 (PROTONIX) 40 mg tablet Take 40 mg by mouth once daily. sucralfate (CARAFATE) 1 gram tablet TAKE ONE TABLET BY MOUTH FOUR TIMES DAILY ONE hour BEFORE MEALS AND AT BEDTIME lisinopril (PRINIVIL) 20 mg tablet Take 1 tablet by mouth twice daily. (Patient taking differently: Take 40 mg by mouth twice daily. ) cholecalciferol, Vitamin D3, (D3-50 CHOLECALCIFEROL) 50,000 unit cap capsule Take 50,000 Units by mouth once each week. tolterodine ER (DETROL LA) 4 mg 24 hr capsule Take 4 mg by mouth once daily. zolpidem (AMBIEN) 10 mg tab Take 10 mg by mouth daily at bedtime. LORazepam (ATIVAN) 1 mg tablet Take 1 mg by mouth twice daily. nitroglycerin sublingual (NITROQUICK) 0.4 mg SL tablet Dissolve 1 tablet under the tongue as needed. FOR CHEST PAIN. IF NO RELIEF CALL 911 DULoxetine (CYMBALTA) 60 mg capsule Take 60 mg by mouth once daily. Ferrous Fumarate 325 mg (106 mg iron) tab Take 325 mg by mouth twice daily. gabapentin (NEURONTIN) 600 mg tablet Take 600 mg by mouth twice daily. levothyroxine (LEVOTHROID) 25 mcg tablet Take 25 mcg by mouth once daily. oxyCODONE-acetaminophen (PERCOCET) 10-325 mg tablet Take 1 tablet by mouth every 6 hours as needed. pravastatin (PRAVACHOL) 40 mg tablet Take 40 mg by mouth once daily. Calcium Carbonate-Vitamin D3 (VITAMIN D-3) 180-5,000 mg-unit tab Take by mouth once each week. metoprolol tartrate (LOPRESSOR) 50 mg ORAL Tab Take one half (1/2) tablet twice daily ondansetron (ZOFRAN, HYDROCHLORIDE,) 4 mg tablet Take 1 tablet by mouth every 8 hours as needed (for nausea.). hydrOXYzine pamoate (VISTARIL) 25 mg capsule Take 25 mg by mouth three times daily as needed. ARIPIPRAZOLE (ABILIFY ORAL) Take by mouth once daily. benztropine (COGENTIN) 1 mg tablet Take 1 mg by mouth twice daily. Omeprazole Magnesium 20 mg cpDR Take 20 mg by mouth once daily. No current facility-administered medications for this visit. ALLERGIES Allergen Reactions - Asa [Salicylates] - Erythromycin - Ibuprofen - Latex Unknown - Nsaids (Non-Steroid* Diarrhea, Vomiting REVIEW OF SYSTEMS: GENERAL: No weight loss, malaise or fevers GI: Negative for nausea , vomiting, diarrhea, constipation and signs of jaundice Positive for abdominal pain RUQ and Melena PHYSICAL EXAM: BP 150/100 Pulse 82 Ht 5' 2.5ANDquot; (1.59m) Wt 176 lb 3.2 oz (79.9kg) SpO2 98% BMI 31.69 kg/(m2). GENERAL APPEARANCE: Well appearing, alert, in no acute distress, well-hydrated, well nourished., Overweight. ABDOMEN: Abdomen is soft. There is tenderness palpation in the right upper quadrant. This or rebound or guarding. On rectal exam there is no evidence of perianal pathology. There is no gross blood on rectal exam. NEURO: Alert, oriented x3, no asterixis, speech clear and articulate and YAÑEZ DATA: Diagnostic tests reviewed for today's visit: Most recent imaging A total of 25 minutes was spent in direct patient contact.Greater than 50% of the direct patient contact time was spent in counseling or coordination of care. ASSESSMENT / PLAN 1. Benign neuroendocrine tumor of stomach I reviewed her most recent CT scan. This shows no evidence of metastasis from her neuroendocrine tumor of her stomach. She is having blood in her stool I will refer her for colonoscopy back to [facility]. We will tentatively plan on a laparoscopic partial gastrectomy and the lap scopic cholecystectomy. Risk and benefits of the operation including but not exclusive to bleeding infection and possibility postoperative leak were discussed with the patient and she wishes to proceed with the operation. We'll schedule her in next several weeks. - oxyCODONE IR (ROXICODONE) 5 mg immediate release tablet; Take 1 tablet by mouth every 6 hours as needed for up to 7 days. Dispense: 50 tablet; Refill: 0 Giovanni Hernández MD Referring Provider: GIOVANNI HERNÁNDEZ [[id number]] Allergies As of Date: 05/14/2017 Noted Allergy Reaction ASA (SALICYLATES) 11/14/2004 ERYTHROMYCIN 11/14/2004 IBUPROFEN 11/14/2004 LATEX 06/30/2010 16 - Unknown NSAIDS (NON-STEROIDAL ANTI-INFLAM*02/23/2014 6 - Diarrhea 11 - Vomiting Date Reviewed: 05/14/2017 Reviewed by: Pily ([facility]) Malena - Fully Assessed Reason for Visit: Follow Up [171] Primary Visit Diagnosis:Benign neuroendocrine tumor of stomach [D3A.092] Order(s):oxyCODONE IR (ROXICODONE) 5 mg immediate release tabletTake 1 tablet by mouth every 6 hours as needed for up to 7 days.Disp: 50 tabletRfl: 0 ondansetron (ZOFRAN, HYDROCHLORIDE,) 4 mg tabletTake 1 tablet by mouth every 8 hours as needed (for nausea.).Disp: 40 tabletRfl: 0 Prescriptions as of 05/14/2017 Sig: OXYCODONE 5 MG TABLET Take 1 tablet by mouth every * PANTOPRAZOLE 40 MG TABLET,DEL* Take 40 mg by mouth once sidra* SUCRALFATE 1 GRAM TABLET TAKE ONE TABLET BY MOUTH FOUR* LISINOPRIL 20 MG TABLET Take 1 tablet by mouth twice * Patient taking differently: Take 40 mg by mouth twice kaycee* CHOLECALCIFEROL (VITAMIN D3) * Take 50,000 Units by mouth on* TOLTERODINE ER 4 MG CAPSULE,E* Take 4 mg by mouth once daily. ZOLPIDEM 10 MG TABLET Take 10 mg by mouth daily at * LORAZEPAM 1 MG TABLET Take 1 mg by mouth twice sidra* NITROGLYCERIN 0.4 MG SUBLINGU* Dissolve 1 tablet under the t* DULOXETINE 60 MG CAPSULE,VANESA* Take 60 mg by mouth once sidra* FERROUS FUMARATE 325 MG (106 * Take 325 mg by mouth twice da* LEVOTHYROXINE 25 MCG TABLET Take 25 mcg by mouth once kaycee* OXYCODONE-ACETAMINOPHEN 10 MG* Take 1 tablet by mouth every * CALCIUM CARBONATE-VITAMIN D3 * Take by mouth once each week. X GABAPENTIN 600 MG TABLET Take 600 mg by mouth twice da* X PRAVASTATIN 40 MG TABLET Take 40 mg by mouth once sidra* * LOPRESSOR 50 MG TABLET Take one half (1/2) tablet tw* ONDANSETRON HCL 4 MG TABLET Take 1 tablet by mouth every * HYDROXYZINE PAMOATE 25 MG CAP* Take 25 mg by mouth three alo* ABILIFY ORAL Take by mouth once daily. 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 ONDANSETRON HCL 4 MG TABLET 40 t* 0 05/14/2017 06/13/2017 Class: Print RX Route: ORAL Sig: Take 1 tablet by mouth every 8 hours as needed (for nausea.). Medications Discontinued During This Encounter oxyCODONE IR (ROXICODONE) 5 mg immed* 0 04/18/2017 05/14/2017 Class: Historical Med Route: ORAL Sig: Take 5 mg by mouth four times daily. Disc: Reason for discontinue is not on file. Encounter Status:Closed by GIOVANNI HERNÁNDEZ MD on 05/20/17 PROGRESS Observed: 05/01/2017 Status: COMPLETED Source: [place] 12:03 PM [facility] REPOSITORY O ID: [id number] Author: Lorie Fernandez Service: (none) Author Type: (none) Type: Progress Notes Filed: 05/01/2017 12:04 PM Note Text: Radiology Service Progress Note PATIENT NAME: Ramses Bradshaw DATE OF SERVICE: May 01, 2017 TIME: 12:03 PM PATIENT IDENTITY VERIFICATION COMPLETED USING TWO (2) METHODS: Patient confirmed name verbally and Date of . PATIENT GENDER DATA: Female. status: : No status: NO. PATIENT RELEVANT IMPLANT DATA REVIEWED: Not Applicable CONTRAST INDUCED NEPHROPATHY RISK FACTORS: Not applicable CREATININE: Creatinine Date Value Ref Range Status 04/22/2017 0.84 0.58 - 0.96 mg/dL Final 01/22/2014 1.10 0.70 - 1.40 mg/dL Final 10/08/2005 1.1 0.7 - 1.4 mg/dL Final eGFR-All Other Races Date Value Ref Range Status 04/22/2017 >60 . Final Comment: eGFR (Estimated GFR) Units of measure: mL/min/1.73 meters squared eGFR is derived from the reexpressed MDRD Study equation using the following parameters: serum creatinine, age, gender and race. The creatinine assay has been calibrated to be traceable to IDMS. An eGFR <60 mL/min/1.73m2 for >3 months is consistent with chronic kidney disease. Refer to KDOQI guidelines for clinical interpretation. In patients with unstable renal function, e.g. those with acute kidney injury, the eGFR may not accurately reflect actual GFR. eGFR- Date Value Ref Range Status 04/22/2017 >60 Final P.O.C.T. RESULTS: POC done: Yes, See Lab Tab May 01, 2017 RADIOLOGIST NOTIFIED?: No ALLERGIES: Reviewed and unchanged CONTRAST ALLERGY: NO. PERIPHERAL IV ACCESS: Ambulatory: IV type: A peripheral IV was started in the Left antecubital site with a Angio cath: 22 gauge., Site assessment: Clean,Dry and Intact, Site disposition Discontinued RADIOLOGY DEPARTMENT: CT; Exam(s) Completed: Abdomen/Pelvis SIGNED BY: Lorie Graff Ct May 01, 2017 12:[address] ABD/PEL W IVCON Observed: 05/01/2017 Status: F Source: [place] 10:53 AM [facility] REPOSITORY * * *Final Report* * * DATE OF EXAM: May 01 2017 10:53AM [facility] 0530 - CT ABD/PEL W IVCON / PROCEDURE REASON: Benign carcinoid tumor of the stomach * * * * Physician Interpretation * * * * EXAMINATION: CT ABDOMEN AND PELVIS WITH IV CONTRAST CLINICAL HISTORY: Benign carcinoid tumor of the stomach Staging for neuroendocrine tumor of stomach Hx endoneurocrine tumor,appy,tracie,bso. kmr TECHNIQUE: CT of the abdomen and pelvis was performed using standard technique, scanning from just above the dome of the diaphragm to the symphysis pubis. MQ: CTAP_3 Contrast: IV: 145 ml of Omnipaque 300 Oral: 50 ml of 50ML Omnipaque [address] Radiation dose: Integrated Dose-length product (DLP) for this visit = 575 mGy*cm. CT Dose Reduction Employed: Automated exposure control (AEC) COMPARISON: None. RESULT: Liver: No mass. Biliary: No bile duct dilation. Spleen: No mass. No splenomegaly. Pancreas: No mass or duct dilation. Adrenals: No mass. Kidneys: Both kidneys function and show no obstruction. Subcentimeter low density lesion in the left kidney statistically most likely benign GI tract: No dilation or wall thickening. Lymph nodes: No abdominal or pelvic lymphadenopathy. Mesentery/Peritoneum: No ascites or mass. Retroperitoneum: No mass. Vasculature: The celiac axis and SMA are patent. The portal vein and branches, splenic vein, SMV, and hepatic veins are patent. Pelvis: No mass, ascites or fluid collection. Bones/Soft Tissues: Postsurgical changes L4-5. Pedicular screws and plates also present Lower thorax: Unremarkable. IMPRESSION: 1. Subcentimeter low-density lesion in the kidney statistically most likely benign 2. Otherwise unremarkable Note: No imaging follow-up is recommended for any of the following incidentally detected lesions: Cystic kidney lesions less than 1 cm in this adult patient (18 years or older). ACR WhitePaper: Managing incidental findings on abdominal CT JACR 2010; 7:754 Cell Feed Department Supervisor: CHERIE Transcribe Date/Time: May 01 2017 3:53P Dictated by : FREDRICK GARCIA DO This examination was interpreted and the report reviewed and electronically signed by: FREDRICK GARCIA DO on May 01 2017 3:57PM EST [id number] CNCO Observed: 04/23/2017 Status: COMPLETED Source: [place] 12:00 AM [facility] OTHER CAMPUS REPOSITORY Letter Text Giovanni Hernández MD [facility] [address] [facility] [address] Dept: [phone] Dept April 23, 2017 Re: Ramses Bradshaw : [address] Farfan, This letter is to request CARDIAC clearance for the above named patient. Patient is scheduled for surgery on: PENDING CLEARANCE Type of surgery to be performed is: Laparoscopic Cholecystectomy, Partal Laparoscopic Partial Gastrectomy and will be performed under general anesthesia. Thank you, Heike ([facility]) Any for Giovanni Hernández MD Maintenance Medications: OK to D/C blood thinner/anticoagulant type medications prior to surgery: ____Yes ____days before surgery ____No Patient is considered: ____Low Risk ____Intermediate Risk ____High Risk Reason: Signature of Physician Date Please fax back as soon as possible to above number CNPN Observed: 04/23/2017 Status: COMPLETED Source: [place] 12:00 AM [facility] OTHER CAMPUS REPOSITORY Telephone (AGCARDWST) RAMSES BRADSHAW ([id number]) 1965 F Date Time Provider Department 04/23/17 SELWYN FARFAN AGCARDWST During your visit today, we recorded the following information about you: Johny Valencia, RN, RN 04/23/2017 11:11 AM Signed Form received from Dr. Hernández's office with [facility] (in Epic) for cardiac clearance prior to laparoscopic cholecystectomy and partial gastrectomy, in folder for review. Patient had a recent optimization appt with you on 04-04 prior to a colonoscopy at [facility]. Selwyn Farfan MD 04/23/2017 2:11 PM Signed Signed. Please attach recent office visit note. MD Caridad Núñez MA 04/25/2017 12:12 PM Signed Form and copy of recent office note faxed to: [phone]. Caridad German MA Allergies As of Date: 04/23/2017 Noted Allergy Reaction ASA (SALICYLATES) 11/14/2004 ERYTHROMYCIN 11/14/2004 IBUPROFEN 11/14/2004 LATEX 06/30/2010 16 - Unknown NSAIDS (NON-STEROIDAL ANTI-INFLAM*02/23/2014 6 - Diarrhea 11 - Vomiting Date Reviewed: 04/22/2017 Reviewed by: Heike ([facility]) May - Fully Assessed Reason for Visit: Forms [913] Cmt: cardiac clearance Prescriptions as of 04/23/2017 Sig: PANTOPRAZOLE 40 MG TABLET,DEL* Take 40 mg by mouth once sidra* SUCRALFATE 1 GRAM TABLET TAKE ONE TABLET BY MOUTH FOUR* OXYCODONE 5 MG TABLET Take 5 mg by mouth four times* IV CONTRAST (RADIOLOGY PROCED* CT ABD/PEL -Inject, intraveno* ENTERIC CONTRAST (RADIOLOGY P* For CT ABD/PEL W IVCON Routin* LISINOPRIL 20 MG TABLET Take 1 tablet by mouth twice * Patient taking differently: Take 40 mg by mouth twice kaycee* CHOLECALCIFEROL (VITAMIN D3) * Take 50,000 Units by mouth on* TOLTERODINE ER 4 MG CAPSULE,E* Take 4 mg by mouth once daily. ZOLPIDEM 10 MG TABLET Take 10 mg by mouth daily at * LORAZEPAM 1 MG TABLET Take 1 mg by mouth twice sidra* NITROGLYCERIN 0.4 MG SUBLINGU* Dissolve 1 tablet under the t* HYDROXYZINE PAMOATE 25 MG CAP* Take 25 mg by mouth three alo* ABILIFY ORAL Take by mouth once daily. BENZTROPINE 1 MG TABLET Take 1 mg by mouth twice sidra* DULOXETINE 60 MG CAPSULE,VANESA* Take 60 mg by mouth once sidra* FERROUS FUMARATE 325 MG (106 * Take 325 mg by mouth twice da* GABAPENTIN 600 MG TABLET Take 600 mg by mouth twice da* LEVOTHYROXINE 25 MCG TABLET Take 25 mcg by mouth once kaycee* OMEPRAZOLE MAGNESIUM 20 MG CA* Take 20 mg by mouth once sidra* OXYCODONE-ACETAMINOPHEN 10 MG* Take 1 tablet by mouth every * PRAVASTATIN 40 MG TABLET Take 40 mg by mouth once sidra* CALCIUM CARBONATE-VITAMIN D3 * Take by mouth once each week. * LOPRESSOR 50 MG TABLET Take one half (1/2) tablet tw* Problem List As Of Date 04/23/2017 Noted Resolved ORTHOSTATIC HYPOTENSION [I95.1] INVALID FOR*08/15/2006 CARBUNCLE NOS [L02.92, L02.93] INVALID FOR* Syncope and collapse [R55] INVALID FOR*12/13/2015 SINOATRIAL NODE DYSFUNCT [I49.5] INVALID FOR* CARDIAC PACEMAKER IN SITU [Z95.0] INVALID FOR* Spinal stenosis, lumbar region, with neurogenic*INVALID FOR* Degeneration of lumbar or lumbosacral intervert*INVALID FOR* Encounter Status:Closed by SELWYN FARFAN MD on 04/23/17 PROGRESS Observed: 04/22/2017 Status: COMPLETED Source: [facility] 1:33 PM CLINIC OTHER CAMPUS REPOSITORY HNO ID: [id number] Author: Giovanni Hernández Service: (none) Author Type: Physician Type: Progress Notes Filed: 04/22/2017 2:30 PM Note Text: Patient referred by: Clarissa Casas MD [address] [facility] [address] [facility] [address] HPI: This is a new patient consult from Dr. Casas. 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 She was being worked up for some epigastric pain and right upper quadrant pain that has been ongoing since September. She has nausea but no vomiting. She is lost about 50 pounds. She does have diarrhea. She reports some flushing. She had an EGD which showed a an ulcer in the upper stomach. She has no history of cross-sectional imaging of her abdomen. She denies any jaundice. She had an ultrasound which showed some sludge in her gallbladder. She's a cardiac history had a pacemaker placed at age 38. [address] sees [address] Farfan at [place] for this. She has no family history of cancer. . PAST MEDICAL HISTORY Diagnosis Date - Depression - Hypertension - Hypothyroid - Sick sinus syndrome (HCC) PAST SURGICAL HISTORY Procedure Laterality Date - APPENDECTOMY - CARPAL TUNNEL left - HYSTERECTOMY HX - LAPAROSCOPY DIAGNOSTIC - PACEMAKER (PM) 2003 - PAST SURGICAL HISTORY OF lumbar pain injections. - [place] ANESTH,LUMBAR SPINE,CORD SURGERY 02/07/2016 L4-L5 fusion; [facility] - REVISE ULNAR NERVE AT ELBOW bilateral- with revisions FAMILY HISTORY Problem Relation Age of Onset - Multiple Sclerosis Father 26 at age 41 - Multiple Sclerosis Daughter 30 dx Mar 2016 - orthostatic hypotension [OTHER] Sister Social History Marital status: Spouse name: Years of education: 14 Number of children: 2 Social History Main Topics Smoking status: Former Smoker Packs/day: 0.50 Years: 27.00 Types: Cigarettes Smokeless status: Never Used Comment: Vapor Pen only. 6mg Nicotine Alcohol use: No Drug use: No Comment: Heavy EtOH use unt2000. 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 Drinks 2 sodas and 2-3 x 20oz bottles of water daily Current Outpatient Prescriptions: pantoprazole DR (PROTONIX) 40 mg tablet Take 40 mg by mouth once daily. sucralfate (CARAFATE) 1 gram tablet TAKE ONE TABLET BY MOUTH FOUR TIMES DAILY ONE hour BEFORE MEALS AND AT BEDTIME oxyCODONE IR (ROXICODONE) 5 mg immediate release tablet Take 5 mg by mouth four times daily. lisinopril (PRINIVIL) 20 mg tablet Take 1 tablet by mouth twice daily. (Patient taking differently: Take 40 mg by mouth twice daily. ) cholecalciferol, Vitamin D3, (D3-50 CHOLECALCIFEROL) 50,000 unit cap capsule Take 50,000 Units by mouth once each week. tolterodine ER (DETROL LA) 4 mg 24 hr capsule Take 4 mg by mouth once daily. zolpidem (AMBIEN) 10 mg tab Take 10 mg by mouth daily at bedtime. LORazepam (ATIVAN) 1 mg tablet Take 1 mg by mouth twice daily. nitroglycerin sublingual (NITROQUICK) 0.4 mg SL tablet Dissolve 1 tablet under the tongue as needed. FOR CHEST PAIN. IF NO RELIEF CALL 911 DULoxetine (CYMBALTA) 60 mg capsule Take 60 mg by mouth once daily. pravastatin (PRAVACHOL) 40 mg tablet Take 40 mg by mouth once daily. Calcium Carbonate-Vitamin D3 (VITAMIN D-3) 180-5,000 mg-unit tab Take by mouth once each week. metoprolol tartrate (LOPRESSOR) 50 mg ORAL Tab Take one half (1/2) tablet twice daily iv contrast (radiology procedure) CT ABD/PEL -Inject, intravenously, once for 1 dose.No IV access, insert saline lock prior to the beginning of sedation, infusion, injection of imaging exam. Discontinue saline lock post exam. If Pt. has a central line or IVAD, may access for administration according to line specific nursing protocol. Once exam is complete flush line and de-access according to line specific nursing protocol in the CT contrast administration guidelines link. enteric contrast (radiology procedure) For CT ABD/PEL W IVCON Routine order Administer, As Directed One Time Only, via Oral, Rectal, both Oral and Rectal, Enteric Tube, Stoma or Indwelling Catheter, Enteric Contrast as designated per enteric contrast guidelines hydrOXYzine pamoate (VISTARIL) 25 mg capsule Take 25 mg by mouth three times daily as needed. ARIPIPRAZOLE (ABILIFY ORAL) Take by mouth once daily. benztropine (COGENTIN) 1 mg tablet Take 1 mg by mouth twice daily. Ferrous Fumarate 325 mg (106 mg iron) tab Take 325 mg by mouth twice daily. gabapentin (NEURONTIN) 600 mg tablet Take 600 mg by mouth twice daily. levothyroxine (LEVOTHROID) 25 mcg tablet Take 25 mcg by mouth once daily. Omeprazole Magnesium 20 mg cpDR Take 20 mg by mouth once daily. oxyCODONE-acetaminophen (PERCOCET) 10-325 mg tablet Take 1 tablet by mouth every 6 hours as needed. No current facility-administered medications for this visit. ALLERGIES Allergen Reactions - Asa [Salicylates] - Erythromycin - Ibuprofen - Latex Unknown - Nsaids (Non-Steroid* Diarrhea, Vomiting REVIEW OF SYSTEMS: GENERAL: No weight loss, malaise or fevers GI: Negative for vomiting, diarrhea, constipation and signs of jaundice Positive for abdominal pain RUQ and nausea PHYSICAL EXAM: BP 118/74 Pulse 69 Ht 5' 2 (1.58m) Wt 177 lb 14.4 oz (80.7kg) SpO2 93% BMI 32.53 kg/(m2). GENERAL APPEARANCE: Well appearing, alert, in no acute distress, well-hydrated, well nourished., Overweight. ABDOMEN: Abdomen is soft. There is tenderness to palpation in the right upper quadrant. There is no rebound or guarding. NEURO: Alert, oriented x3, no asterixis, speech clear and articulate and YAÑEZ HEART: regular rate and rhythm, without murmur LUNGS: clear to auscultation, without rales or wheeze, good air exchange DATA: Diagnostic tests reviewed for today's visit: Most recent labs Outside chart from [facility] reviewed. A total of 45 minutes was spent in direct patient contact. Greater than 50% of the direct patient contact time was spent in counseling or coordination of care. ASSESSMENT / PLAN: 1. Benign neuroendocrine tumor of stomach I personally reviewed her EGD and pathology results. This showed an ulcer in the fundus of the stomach. Biopsy showed a neuroendocrine tumor. 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 She has no symptoms of carcinoid syndrome. I like to check her urinary serotonin levels as well as chromogranin levels. I will see her in the office after this is all completed. - CHROMOGRANIN A; Future - COMP METABOLIC PANEL; Future - HIAA-5 RAND PANEL UR; Future - CT ABD/PEL W IVCON; Future Giovanni Hernández MD HIAA, URINE,RANDOM Collected: 04/22/2017 Status: F Source: [facility] 12:43 PM [facility] REPOSITORY TYPE CODE TESTS RESULT OUT OF REFERENCE UNITS RANGE LAB UHIAAR 0.0-10.0 mg/g Creat HIAA, Ur, 2.8 Random Result Comment: This test was developed and its performance characteristics determined by [facility] [place] (-[facility]). It has not been cleared or approved by the FDA. -[facility] is regulated under CLIA as qualified to perform high-complexity testing. This test is used for clinical purposes. It should not be regarded as investigational or for research. Performed By: #### UHIAR2 #### [facility] [address] [place], [place] [address] COMP METABOLIC PANEL Collected: 04/22/2017 Status: F Source: [place] 12:39 PM [facility] REPOSITORY TYPE CODE TESTS RESULT OUT OF REFERENCE UNITS RANGE LAB TP 6.3-8.0 g/dL Protein, Total 8.0 LAB ALB 3.9-4.9 g/dL Albumin 4.3 LAB CA 8.5-10.2 mg/dL Calcium, Total 10.0 LAB TBIL 0.2-1.3 mg/dL Bilirubin, Total 0.3 LAB ALKP 32-117 U/L Alkaline Phosphatase 98 LAB AST 13-35 U/L AST 15 LAB GLU 74-99 mg/dL Glucose High 116 Result Comment: The [place] [employer] Association (ADA) provides guidance for cutoff values for fasting glucose and random glucose. The ADA defines fasting as no caloric intake for at least 8 hours. Fas ting plasma glucose results between 100 to 125 mg/dL indicate increased risk for diabetes (prediabetes). Fasting plasma glucose results greater than or equal to 126 mg/dL meet the criteria for diagnosis of diabetes. In the absence of unequivocal hyperglycemia, results should be confirmed by repeat testing. In a patient with classic symptoms of hyperglycemia or hyperglycemic crisis, random plasma glucose results greater than or equal to 200 mg/dL meet the criteria for diagnosis of diabetes. Reference: Standards of Medical Care in Diabetes 2016, [place] [employer] Association. Diabetes Care. 2016.39(Suppl 1). LAB BUN 7-21 mg/dL BUN 13 LAB CRET 0.58-0.96 mg/dL Creatinine 0.84 LAB NA 136-144 mmol/L Sodium 142 LAB K 3.7-5.1 mmol/L Potassium 3.8 LAB CL 97-105 mmol/L Chloride 102 LAB CO2 22-30 mmol/L CO2 23 LAB AGAP 9-18 mmol/L Anion Gap 17 LAB ALT 7-38 U/L ALT 13 LAB GFRAA eGFR- Amer. >60 LAB GFRNAA . eGFR-All Other Races >60 Result Comment: eGFR (Estimated GFR) Units of measure: mL/min/1.73 meters squared eGFR is derived from the reexpressed MDRD Study equation using the following parameters: serum creatinine, age, gender and race. The creatinine assay has been calibrated to be traceable to IDMS. An eGFR <60 mL/min/1.73m2 for >3 months is consistent with chronic kidney disease. Refer to KDOQI guidelines for clinical interpretation. In patients with unstable renal function, e.g. those with acute kidney injury, the eGFR may not accurately reflect actual GFR. Performed By: #### CMP, CHROMA #### [facility] [address] [place], [place] [address] CHROMOGRANIN A Collected: 04/22/2017 Status: F Source: [place] 12:39 PM [facility] REPOSITORY TYPE CODE TESTS RESULT OUT OF REFERENCE UNITS RANGE LAB CHROMA <98 ng/mL Chromogranin A 84 Result Comment: This test is performed using the [employer] [id number] kit. Results obtained with different methods or kits cannot be used interchangeably. This test was developed and its performance characteristics determined by [facility]'s [facility] [place] ([facility]). It has not been cleared or approved by the FDA. -[facility] is regulated under CLIA as qualified to perform high-complexity testing. This test is used for clinical purposes. It should not be regarded as investigational or for research. Performed By: #### CMP, CHROMA #### [facility] [address] [place], [place] [address] CNOV Observed: 04/22/2017 Status: COMPLETED Source: [place] 11:00 AM CLINIC OTHER CAMPUS REPOSITORY Office Visit (AGGENS1) RAMSES BRADSHAW ([id number]) 1965 F Date Time Provider Department 04/22/17 11:00 AM GIOVANNI HERNÁNDEZ AGGENS1 During your visit today, we recorded the following information about you: Pulse Blood pressure Weight Height 69/minute 118/74 80.7 kg 1.575 m Giovanni Hernández MD 04/22/2017 2:30 PM Signed Patient referred by: Clarissa Casas MD [address] [facility] [address] [facility] [address] HPI: This is a new patient consult from Dr. Casas. 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 She was being worked up for some epigastric pain and right upper quadrant pain that has been ongoing since September. She has nausea but no vomiting. She is lost about 50 pounds. She does have diarrhea. She reports some flushing. She had an EGD which showed a an ulcer in the upper stomach. She has no history of cross-sectional imaging of her abdomen. She denies any jaundice. She had an ultrasound which showed some sludge in her gallbladder. She's a cardiac history had a pacemaker placed at age 38. [address] sees [address]. Farfan at [place] for this. She has no family history of cancer. . PAST MEDICAL HISTORY Diagnosis Date - Depression - Hypertension - Hypothyroid - Sick sinus syndrome (HCC) PAST SURGICAL HISTORY Procedure Laterality Date - APPENDECTOMY - CARPAL TUNNEL left - HYSTERECTOMY HX - LAPAROSCOPY DIAGNOSTIC - PACEMAKER (PM) 2003 - PAST SURGICAL HISTORY OF lumbar pain injections. - [place] ANESTH,LUMBAR SPINE,CORD SURGERY 02/07/2016 L4-L5 fusion; [facility] - REVISE ULNAR NERVE AT ELBOW bilateral- with revisions FAMILY HISTORY Problem Relation Age of Onset - Multiple Sclerosis Father 26 at age 41 - Multiple Sclerosis Daughter 30 dx Mar 2016 - orthostatic hypotension [OTHER] Sister Social History Marital status: Spouse name: Years of education: 14 Number of children: 2 Social History Main Topics Smoking status: Former Smoker Packs/day: 0.50 Years: 27.00 Types: Cigarettes Smokeless status: Never Used Comment: Vapor Pen only. 6mg Nicotine Alcohol use: No Drug use: No Comment: Heavy EtOH use layla 2000. 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 Drinks 2 sodas and 2-3 x 20oz bottles of water daily Current Outpatient Prescriptions: pantoprazole DR (PROTONIX) 40 mg tablet Take 40 mg by mouth once daily. sucralfate (CARAFATE) 1 gram tablet TAKE ONE TABLET BY MOUTH FOUR TIMES DAILY ONE hour BEFORE MEALS AND AT BEDTIME oxyCODONE IR (ROXICODONE) 5 mg immediate release tablet Take 5 mg by mouth four times daily. lisinopril (PRINIVIL) 20 mg tablet Take 1 tablet by mouth twice daily. (Patient taking differently: Take 40 mg by mouth twice daily. ) cholecalciferol, Vitamin D3, (D3-50 CHOLECALCIFEROL) 50,000 unit cap capsule Take 50,000 Units by mouth once each week. tolterodine ER (DETROL LA) 4 mg 24 hr capsule Take 4 mg by mouth once daily. zolpidem (AMBIEN) 10 mg tab Take 10 mg by mouth daily at bedtime. LORazepam (ATIVAN) 1 mg tablet Take 1 mg by mouth twice daily. nitroglycerin sublingual (NITROQUICK) 0.4 mg SL tablet Dissolve 1 tablet under the tongue as needed. FOR CHEST PAIN. IF NO RELIEF CALL 911 DULoxetine (CYMBALTA) 60 mg capsule Take 60 mg by mouth once daily. pravastatin (PRAVACHOL) 40 mg tablet Take 40 mg by mouth once daily. Calcium Carbonate-Vitamin D3 (VITAMIN D-3) 180-5,000 mg-unit tab Take by mouth once each week. metoprolol tartrate (LOPRESSOR) 50 mg ORAL Tab Take one half (1/2) tablet twice daily iv contrast (radiology procedure) CT ABD/PEL -Inject, intravenously, once for 1 dose.No IV access, insert saline lock prior to the beginning of sedation, infusion, injection of imaging exam. Discontinue saline lock post exam. If Pt. has a central line or IVAD, may access for administration according to line specific nursing protocol. Once exam is complete flush line and de-access according to line specific nursing protocol in the CT contrast administration guidelines link. enteric contrast (radiology procedure) For CT ABD/PEL W IVCON Routine order Administer, As Directed One Time Only, via Oral, Rectal, both Oral and Rectal, Enteric Tube, Stoma or Indwelling Catheter, Enteric Contrast as designated per enteric contrast guidelines hydrOXYzine pamoate (VISTARIL) 25 mg capsule Take 25 mg by mouth three times daily as needed. ARIPIPRAZOLE (ABILIFY ORAL) Take by mouth once daily. benztropine (COGENTIN) 1 mg tablet Take 1 mg by mouth twice daily. Ferrous Fumarate 325 mg (106 mg iron) tab Take 325 mg by mouth twice daily. gabapentin (NEURONTIN) 600 mg tablet Take 600 mg by mouth twice daily. levothyroxine (LEVOTHROID) 25 mcg tablet Take 25 mcg by mouth once daily. Omeprazole Magnesium 20 mg cpDR Take 20 mg by mouth once daily. oxyCODONE-acetaminophen (PERCOCET) 10-325 mg tablet Take 1 tablet by mouth every 6 hours as needed. No current facility-administered medications for this visit. ALLERGIES Allergen Reactions - Asa [Salicylates] - Erythromycin - Ibuprofen - Latex Unknown - Nsaids (Non-Steroid* Diarrhea, Vomiting REVIEW OF SYSTEMS: GENERAL: No weight loss, malaise or fevers GI: Negative for vomiting, diarrhea, constipation and signs of jaundice Positive for abdominal pain RUQ and nausea PHYSICAL EXAM: BP 118/74 Pulse 69 Ht 5' 2ANDquot; (1.58m) Wt 177 lb 14.4 oz (80.7kg) SpO2 93% BMI 32.53 kg/(m2). GENERAL APPEARANCE: Well appearing, alert, in no acute distress, well-hydrated, well nourished., Overweight. ABDOMEN: Abdomen is soft. There is tenderness to palpation in the right upper quadrant. There is no rebound or guarding. NEURO: Alert, oriented x3, no asterixis, speech clear and articulate and YAÑEZ HEART: regular rate and rhythm, without murmur LUNGS: clear to auscultation, without rales or wheeze, good air exchange DATA: Diagnostic tests reviewed for today's visit: Most recent labs Outside chart from [facility] reviewed. A total of 45 minutes was spent in direct patient contact. Greater than 50% of the direct patient contact time was spent in counseling or coordination of care. ASSESSMENT / PLAN: 1. Benign neuroendocrine tumor of stomach I personally reviewed her EGD and pathology results. This showed an ulcer in the fundus of the stomach. Biopsy showed a neuroendocrine tumor. 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 She has no symptoms of carcinoid syndrome. I like to check her urinary serotonin levels as well as chromogranin levels. I will see her in the office after this is all completed. - CHROMOGRANIN A; Future - COMP METABOLIC PANEL; Future - HIAA-5 RAND PANEL UR; Future - CT ABD/PEL W IVCON; Future Giovanni Hernández MD Referring Provider: CLARISSA CASAS [[id number]] Allergies As of Date: 04/22/2017 Noted Allergy Reaction ASA (SALICYLATES) 11/14/2004 ERYTHROMYCIN 11/14/2004 IBUPROFEN 11/14/2004 LATEX 06/30/2010 16 - Unknown NSAIDS (NON-STEROIDAL ANTI-INFLAM*02/23/2014 6 - Diarrhea 11 - Vomiting Date Reviewed: 04/22/2017 Reviewed by: Heike (Emilie) May - Fully Assessed Reason for Visit: New Patient Evaluation [154] Cmt: abdominal pain Primary Visit Diagnosis:Benign neuroendocrine tumor of stomach [D3A.092] Order(s):CHROMOGRANIN A [SQCHROMA] Order #: [id number] FUTURE COMP METABOLIC PANEL [SQCMP] Order #: [id number] FUTURE HIAA-5 RAND PANEL UR [SQUHIAR2] Order #: [id number] FUTURE CT ABD/PEL W IVCON [4036432] Order #: [id number] FUTURE [] iv contrast (radiology procedure)CT ABD/PEL -Inject, intravenously, once for 1 dose.No IV access, insert saline lock prior to the beginning of sedation, infusion, injection of imaging exam. Discontinue saline lock post exam. If Pt. has a central line or IVAD, may access for administration according to line specific nursing protocol. Once exam is complete flush line and de- access according to line specific nursing protocol in the CT contrast administration guidelines link.Disp: 1 EachRfl: 0 [] enteric contrast (radiology procedure)For CT ABD/PEL W IVCON Routine order Administer, As Directed One Time Only, via Oral, Rectal, both Oral and Rectal, Enteric Tube, Stoma or Indwelling Catheter, Enteric Contrast as designated per enteric contrast guidelinesDisp: 1 EachRfl: 0 Prescriptions as of 04/22/2017 Sig: PANTOPRAZOLE 40 MG TABLET,DEL* Take 40 mg by mouth once sidra* SUCRALFATE 1 GRAM TABLET TAKE ONE TABLET BY MOUTH FOUR* X OXYCODONE 5 MG TABLET Take 5 mg by mouth four times* LISINOPRIL 20 MG TABLET Take 1 tablet by mouth twice * Patient taking differently: Take 40 mg by mouth twice kaycee* CHOLECALCIFEROL (VITAMIN D3) * Take 50,000 Units by mouth on* TOLTERODINE ER 4 MG CAPSULE,E* Take 4 mg by mouth once daily. ZOLPIDEM 10 MG TABLET Take 10 mg by mouth daily at * LORAZEPAM 1 MG TABLET Take 1 mg by mouth twice sidra* NITROGLYCERIN 0.4 MG SUBLINGU* Dissolve 1 tablet under the t* DULOXETINE 60 MG CAPSULE,VANESA* Take 60 mg by mouth once sidra* CALCIUM CARBONATE-VITAMIN D3 * Take by mouth once each week. X PRAVASTATIN 40 MG TABLET Take 40 mg by mouth once sidra* * LOPRESSOR 50 MG TABLET Take one half (1/2) tablet tw* IV CONTRAST (RADIOLOGY PROCED* CT ABD/PEL -Inject, intraveno* ENTERIC CONTRAST (RADIOLOGY P* For CT ABD/PEL W IVCON Routin* HYDROXYZINE PAMOATE 25 MG CAP* Take 25 mg by mouth three alo* ABILIFY ORAL Take by mouth once daily. FERROUS FUMARATE 325 MG (106 * Take 325 mg by mouth twice da* LEVOTHYROXINE 25 MCG TABLET Take 25 mcg by mouth once kaycee* OMEPRAZOLE MAGNESIUM 20 MG CA* Take 20 mg by mouth once sidra* OXYCODONE-ACETAMINOPHEN 10 MG* Take 1 tablet by mouth every * X BENZTROPINE 1 MG TABLET Take 1 mg by mouth twice sidra* X GABAPENTIN 600 MG TABLET Take 600 mg by mouth twice da* Medication notes this encounter PANTOPRAZOLE 40 MG TABLET,DELAYED RELEASE >> [place] (Recovery Coach) 04/22/2017 11:04 AM >> JULY GENETICIST, [place] SatApr 22, 2017 11:04 AM Received from: External Pharmacy Received Sig: TAKE ONE TABLET BY MOUTH DAILY SUCRALFATE 1 GRAM TABLET >> [place] (Recovery Coach) 04/22/2017 11:04 AM >> JULY GENETICIST, [place] SatApr 22, 2017 11:04 AM Received from: External Pharmacy OXYCODONE 5 MG TABLET >> [place] (Recovery Coach) 04/22/2017 11:04 AM >> JULY GENETICIST, [place] SatApr 22, 2017 11:04 AM Received from: External Pharmacy Received Sig: TAKE ONE TABLET BY MOUTH FOUR TIMES DAILY OMEPRAZOLE MAGNESIUM 20 MG CAPSULE,DELAYED RELEASE >> [place] (Recovery Coach) 04/22/2017 11:03 AM >> JULY GENETICIST, [place] SatApr 22, 2017 11:03 AM No longer taking Problem List As Of Date 04/22/2017 Noted Resolved ORTHOSTATIC HYPOTENSION [I95.1] INVALID FOR*08/15/2006 CARBUNCLE NOS [L02.92, L02.93] INVALID FOR* Syncope and collapse [R55] INVALID FOR*12/13/2015 SINOATRIAL NODE DYSFUNCT [I49.5] INVALID FOR* CARDIAC PACEMAKER IN SITU [Z95.0] INVALID FOR* Spinal stenosis, lumbar region, with neurogenic*INVALID FOR* Degeneration of lumbar or lumbosacral intervert*INVALID FOR* Prescriptions ordered this encounter Disp Refills Start End IV CONTRAST (RADIOLOGY PROCEDURE) 1 Ea* 0 04/22/2017 04/23/2017 Class: In Office Sig: CT ABD/PEL -Inject, intravenously, once for 1 dose.No IV access, insert saline lock prior to the beginning of sedation, infusion, injection of imaging exam. Discontinue saline lock post exam. If Pt. has a central line or IVAD, may access for administration according to line specific nursing protocol. Once exam is complete flush line and de-access according to line specific nursing protocol in the CT contrast administration guidelines link. ENTERIC CONTRAST (RADIOLOGY PROCEDUR* 1 Ea* 0 04/22/2017 04/23/2017 Class: In Office Sig: For CT ABD/PEL W IVCON Routine order Administer, As Directed One Time Only, via Oral, Rectal, both Oral and Rectal, Enteric Tube, Stoma or Indwelling Catheter, Enteric Contrast as designated per enteric contrast guidelines Letter Text Giovanni Hernández MD Liver, Pancreas, Biliary Surgery General Surgery [facility] [address] [place], [place] [address] [email or web address] 04/22/2017 Clarissa Casas MD [address] [facility] [address] Re: Ramses Bradshaw : [address] Casas, I have had the opportunity to evaluate your patient, Ramses Bradshaw, on 04/22/2017. Please see a copy of my impression and recommendations below. As you know Ramses has a neuroendocrine tumor in her stomach. I'm working her up with a CT scan to ensure she is a resection candidate. If it is localized to the stomach we'll proceed forward with a laparoscopic partial gastrectomy. I will let you know other workup shows. Thank you for the referral. If you have any questions please do not hesitate to contact me on my cell phone number, . Sincerely, Giovanni Hernández MD (Electronically signed to expedite mailing) Encounter Status:Closed by GIOVANNI HERNÁDNEZ MD on 04/22/17 OFFICE VISIT REPORT Observed: 04/18/2017 Status: F Source: [place] 11:24 AM [facility] [address] [place], [place] [address]sus[place]. [place] [address] OFFICE VISIT Date of Service: 04/11/17 MR#: [id number] Acct: [id number] Patient: RAMSES BRADSHAW Rep #: [id number] : 1965 Provider: Imelda Hernandez Age/Sex: 51/F [facility]: [facility] [facility] Status: Signed Comments Summary Comments: Dual Chamber Pacemaker Evaluation: New enrollee to device clinic. Interrogation shows no MS episodes or VHR episodes since last check 10/29/16. Left pectoral pocket/incision w/o s/s of infection or erosion. Pt offers no cardiac complaints. presenting rhythm shows NSR @ 65 bpm. Battery longevity approx 6.5 yrs. PHP WEB DEVELOPER=<1%. Lead impedances, sensing and pace/sense thresholds remain stable. No parameter changes made. Counters cleared. Next f/u appt scheduled for in 6 mos. Report faxed to Dr. Yunior Farfan's office. Device Device Date Interviewed: 04/11/17 Follow-up Location: in office Interview Reason: scheduled follow up Outsole Tacker: [employer] Name: William SALDANA IS-1 Model: K063 Serial #: [id number] Implant Date: 04/03/13 Year(s): 4 Implant Physician: Dr. Samuel Keys Patient Characteristics Atrial Indication: sick sinus syndrome Underlying rhythm: Sinus rhythm Pacemaker Dependent: No Device Characteristics Device: Dual Chamber Type: Pacemaker Device Physical Exam Yes Incision well healed Leads Lead #1 Outsole Tacker Lead 1: Guidant Model Lead 1: 4469 Serial# Lead 1: [id number] Date Implanted Lead 1: 06/02/03 Position Lead 1: RA Lead #2 Outsole Tacker Lead 2: Guidant Model Lead 2: 4470 Serial# Lead 2: [id number] Date Implanted Lead 2: 06/02/03 Position Lead 2: RV Diagnostics Pacing % RA Pacin % RV Pacin Mode Switching Total # Episodes: 0 % Mode switched: 0 Arrhythmias Non-Sust Episodes: 0 Measurements Battery Magnet Rate (bmp): 100 Battery Status: VITA Predicted Remaining Longevity (months or years): 6.5 years RA Measurements Signal Amplitude (mV): 5.3 Impedance (Ohms): 410 Threshold Voltage: 0.4 @ PW(ms): 0.5 RV Measurements Signal Amplitude (mV): 3.8 Impedance (Ohms): 448 Threshold Voltage: 1.1 @ PW(ms): 0.5 Ranjeet Settings Pacemaker Mode: DDD Base Rate: 60 bpm Max Track Rate: 110 bpm Maximum AV Delay: 300 msec Billing Codes PM Device Codes: PM Dev Prog Eval, Dual Assessment AND Plan Problems 1. Syncope and collapse R55 2. Presence of cardiac pacemaker Z95.0 3. Sick sinus syndrome I49.5 04/18/17 1039 <Electronically signed by Imelda Hernandez > Date Imelda Hernandez 04/18/17 1124<Electronically signed by Samuel Keys MD> Cosigner Signature: Date (if applicable) Samuel Keys MD CC: COMPREHENSIVE METABOLIC Collected: 04/12/2017 Status: F Source: [place] 12:[place] [facility] [place] CODE TESTS RESULT OUT OF RANGE REFERENCE UNITS LAB L501.0100 74-106 mg/dL Normal GLU 95 LAB L501.1000 7-18 mg/dL Normal BUN 12 LAB L501.1100 0.55-1.02 mg/dL Normal 0.88 CREAT,SERUM Result Comment: The validity of the calculated GFR AND GFRAA in patients over 70 years has not been determined. Clinical correlation is essential. LAB L501.1110 >60 mL/min Normal EST GFR 72 Result Comment: Non- GFR Calc LAB L501.1115 >60 mL/min Normal EST GFR - AA 87 Result Comment: GFR Calc LAB L501.1300 10-20 RATIO Normal BUN/CRE 13.7 LAB L501.1500 6.4-8.2 g/dL T Normal PROT 7.9 LAB L501.1800 3.2-5.0 g/dL Normal ALB 3.9 LAB L501.1950 2.2-4.2 g/dL Normal GLOB 4.0 LAB L501.2000 0.9-2.4 RATIO Normal A/G 1.0 LAB L501.2200 8.5-10.1 mg/dL CA Normal 9.7 LAB L501.4100 15-37 U/L Normal AST 20 Result Comment: Slight Hemolysis, Result may be falsely increased. LAB L501.4305 45-117 U/L Normal ALK P 103 LAB L501.4405 13-56 U/L Normal ALT 31 Result Comment: Please note revised ALT reference range effective 2017. LAB L501.4600 0.20-1.00 mg/dL Normal T BILI 0.20 LAB L501.5300 136-145 mmol/L Normal NA 143 LAB L501.5600 3.5-5.1 mmol/L Normal K 3.5 Result Comment: Slight Hemolysis, Result may be falsely increased. LAB L501.5900 98-107 mmol/L High CL 108 LAB L501.6100 21.0-32.0 mmol/L Normal CO2 26.0 LAB L501.6200 5-15 Normal 9 GAP Performed By: #### L500.4050 #### [facility] [address] [place], [place], [address] #### L3300.1800 #### [facility] (refer to report for specific site) refer to report for address and phone number GASTRIN, SERUM Collected: 04/12/2017 Status: F Source: [place] 12:11 [place] [facility] [place] CODE TESTS RESULT OUT OF RANGE REFERENCE UNITS LAB L3300.1800 0-115 pg/mL High Gastrin, 266 Serum Result Comment: Siemens Immulite 2000 Immunochemiluminometric assay (ICMA) Performed at: [address] [id number] Drill Bit Sharpener: Jacky Dickens MD, Phone: [phone] Performed By: #### L500.4050 #### [facility] [address] [place], [place], [address] #### L3300.1800 #### [facility] (refer to report for specific site) refer to report for address and phone number CBC W/DIFF, AUTOMATED Collected: 04/12/2017 Status: F Source: [place] 12:11 [place] [facility] [place] CODE TESTS RESULT OUT OF RANGE REFERENCE UNITS LAB L100.1000 4.4-11.0 K/mm3 High WBC 12.2 LAB L100.1200 4.2-5.4 M/mm3 Normal RBC 5.05 LAB L100.1300 12.0-15.0 g/dl High HGB 15.4 LAB L100.1400 37-47 % Normal HCT 45.7 LAB L100.1500 81-99 fL Normal MCV 90.5 LAB L100.1600 27.0-32.0 pg Normal MCH 30.5 LAB L100.1700 32-36 g/gl Normal MCHC 33.7 LAB L100.1810 11.6-14.6 % Normal RDW CV 13.2 LAB L100.1820 35.1-43.9 fl Normal RDW SD 43.4 LAB L100.1900 150-450 K/mm3 Normal PLT 256 LAB L100.2000 6.2-12.0 fl Normal MPV 10.7 LAB L100.2100 47-70 % Normal NEUT% 61.4 LAB L100.2200 19-41 % Normal LY% 28.8 LAB L100.2300 0-10 % Normal MONO% 6.8 LAB L100.2400 0-5 % Normal EO% 2.2 LAB L100.2500 0-1 % Normal BASO% 0.4 LAB L100.2550 0.0-0.9 % Normal IM GRAN % 0.400 Result Comment: IG% - Immature Granulocytes (promyelocytes, myelocytes and metamyelocytes) > 1% indicates that a LEFT SHIFT is Present. LAB L100.2620 2.0-7.7 X10 3/uL Normal Absolute Neut 7.5 LAB L100.2720 0.83-4.51 X10 3/ul Normal Absolute Lymph 3.50 Performed By: #### L100.0100 #### [facility] [address] [place], [address] OPERATIVE REPORT Observed: 04/10/2017 Status: F Source: [place] 8:41 AM [facility] [place] [facility] Medical Records Department [address] [place] [address] Operative Report 04/08/17 1016 MR#: [id number] Acct: [id number] Name: RAMSES BRADSHAW Rep #: [id number] : 1965 51 From: Clarissa Casas MD PCP: Gee Leon MD Status: DEP [facility] Location: EN Report of Operation Date of Procedure: 04/08/17 Pre-Operative Diagnosis: GERD, left upper quadrant/epigastric pain Post-Operative Diagnosis: Same, abnormal gastric fold/ulcer Surgery/Procedure Performed:: EGD with cold forceps biopsy Type of Anesthesia:: MAC Anesthesiologist: Luis Manuel Sawyer Specimen's removed: 1. Antrum, 2. Abnormal gastric fold in the fundus/proximal body, 3. GE junction Estimated Blood Loss (mL): Minimal Description of Procedure: Procedure: EGD with biopsy After obtaining informed consent, the endoscope was passed under direct visualization. Throughout the procedure, patient's blood pressure, pulse, oxygen saturations were monitored continuously by anesthesia. The endoscope was introduced through the mouth and advanced to the 2nd part of the duodenum. The upper GI endoscopy was accomplished without difficulty. Patient tolerated procedure well. Findings: Medium-sized ulcer/abnormal gastric folds were noted in the fundus/proximal body. Biopsy was taken, the tissue was friable. Mild erythematous mucosa at antrum and GE junction noted to be at 37 cm. No hiatal hernia Biopsies were taken with cold biopsy for histology. Estimated blood loss was minimal. The duodenum was normal. Impression: 1. Abnormal gastric fold/ulcer in the fundus/proximal body. Biopsied 2. Erythematous mucosa in the antrum and GE junction. Biopsied. 3. Normal examined duodenum Recommendations: Await biopsy Stop omeprazole 20 mg p.o. daily start Protonix 40 mg p.o. daily Start Carafate 1 g p.o. 4 times daily an hour before meals and at bedtime for a month. 04/10/17 0841 <Electronically signed by Clarissa Casas MD> Date Clarissa Casas MD CC: Gee Leon MD; Clarissa Casas MD Signed IMMUNOHISTOCHEMISTRY Observed: 04/08/2017 Status: F Source: [place] 12:00 AM [facility] [place] Patient: RAMSES BRADSHAW : 1965 (51/F) Acct Num: [id number] Phys: Clarissa Casas MD Unit Num: [id number] Loc: EN Specimen: [id number] Received: 04/09/17 - 1044 Spec Type: IMMUNO TISSUES TISSUES: B. Gastric fundus SPECIMEN INFORMATION: Tissue Source: B Fundic biopsy Clinical Info: Abdomen pain, gastric reflux Specimen Number: [id number] CPT code: 03529, 21050 x5 METHODOLOGY: Deparaffinized sections of prefer/formalin-fixed tissue or PAP/DQ stained slides are incubated with monoclonal/polyclonal antibodies/oligonucleotide probes. Localization is made via biotin free immunoperoxidase method. Appropriate controls are performed and reacted as expected. Results on target cell population are indicated in the following table: RESULTS: ANTIBODY / CLONE RESULT Block B CD56 (123C3.D5) positive NSE Neuron Specific Enolase positive, dim Chromo (LK2H10) positive Synapto (polyclonal) positive CEA (11-7/TF-3HB-1) negative CK8 (04krpcE72) positive These tests were developed and their performance characteristics determined by [facility]. They may not have been cleared or approved by the U.S. Food and Drug Administration. The FDA has determined that such clearance or approval is not necessary. INTERPRETATION: B. Fundic biopsy: Consistent with neuroendocrine tumor. Case has been reviewed in consultation with Dr. Wiley who concurs with the above diagnosis. IDC:YOUSIF AM:marty 04/10/17 PHYSICIAN AND INSTITUTION [place] [id number] Signed Hermelindo Shai 04/10/17 <signature on file> Performed By: #### PIMM #### [facility] [address] [place] [address]. [place], [address] GASTRIC BIOPSY Observed: 04/08/2017 Status: F Source: [place] 12:00 [facility] [place] RE[place]ORY Patient: RAMSES BRADSHAW : 1965 (51/F) Acct Num: [id number] Phys: Damon GAUTAM,Clarissa Unit Num: [id number] Loc: EN Specimen: [id number] Received: 04/08/171237 Spec Type: Gastric Bx TISSUES TISSUES: A. Gastric mucous membrane B. Gastric fundus C. Gastric mucous membrane COMMENT B. A neroendocrine tumor measuring 1.5 x 1.0mm is present in the submucosa of the biopsy of the abnormal fundic fold. IHC studies (RF18- 132) support the above diagnosis. Clinical correlation is necessary. C. There is no evidence of intestinal metaplasia. Alcian blue/PAS stain with matched control supports the above diagnosis. Case has been reviewed in consultation with Dr. Wiley who concurs with the above diagnosis. IDC:SJ GROSS DESCRIPTION A - Received in fixative is one container labeled with the patient's name and designated antrum biopsy. The specimen consists of one irregular fragment of light aburto soft tissue that measures 0.3 x 0.2 x 0.1 cm. The specimen is totally submitted in one cassette. B - Received in fixative is one container labeled with the patient's name and designated fundic antral fold. The specimen consists of one irregular fragment of light aburto soft tissue that measures 0.5 x 0.2 x 0.1 cm. The specimen is totally submitted in one cassette. C - Received in fixative is one container labeled with the patient's name and designated GE junction. The specimen consists of one irregular fragment of light aburto soft tissue that measures 0.6 x 0.2 x 0.1 cm. The specimen is totally submitted in one cassette. / AM:marty 04/08/17 TC:0 CPT: 58910 x3, 91794 HEADER OPERATION: EGD with biopsy PRE-OP DIAGNOSIS: abdomen pain, gastric reflux TISSUE SUBMITTED: A Antrum biopsy, B Biopsy fundic abnormal fold, C Biopsy GE junction MICROSCOPIC DESCRIPTION Slides are reviewed. MICROSCOPIC DIAGNOSIS A. Gastric antrum, biopsy: Minimal chronic inflammation. B. Gastric fundus, biopsy: Neuroendocrine tumor. See Comment. C. Gastroesophageal junction, biopsy: Mild chronic inflammation. AM:marty 04/09/17 Signed Hermelindo [facility] 04/10/17 <signature on file> Performed By: #### PGASB #### [facility] [place], [place], [id number] PROGRESS Observed: 04/04/2017 Status: COMPLETED Source: [place] 2:39 PM CLINIC OTHER CAMPUS REPOSITORY HNO ID: [id number] Author: Selwyn Farfan Service: (none) Author Type: Physician Type: Progress Notes Filed: 04/04/2017 3:25 PM Note Text: PERTINENT CARDIAC HISTORY Syncope - multiple etiologies PPM - 2004, revised 2014 HL Chest pain PFO HTN ADHERENCE TO GUIDELINES DUSTIN-I or ARB for HF with prior LVEF<40 (NQF 0081) - N/A ASA or Plavix for ASHD (NQF 0067) - N/A Beta aislinn for ASHD with prior [place] or prior LVEF<40 (NQF 0070) - N/A Beta aislinn for HF with prior LVEF<40 (NQF 0083) - N/A DUSTIN-I or ARB for ASHD with DM or prior LVEF<40 (NQF 0066) - N/A Statin therapy for ASHD or FHL or DM - met BMI documented and plan if >25 (NQF 0421) - lifestyle recommendation form Tobacco use screening and referral (NQF 0028) - lifestyle recommendation form Recommendation for whole food, plant based diet - lifestyle recommendation form CLINICAL IMPRESSION/PLAN: Ramses Bradshaw has stable cardiac issues. Her chest pain syndrome and shortness of breath are unchanged. She has undergone stress testing within the last 15 months and this showed no evidence of ischemia. She is known to have normal left ventricular function. There is no evidence of decompensated heart failure, arrhythmias or angina. Blood pressure is elevated today and was repeated and confirmed. This needs to be controlled prior to surgery. She was advised to increase lisinopril to 20 milligrams twice daily and contact me tomorrow with an update. I am reluctant to increase her beta aislinn within 2 weeks of surgery, but we may have no choice. Some of her blood pressure elevation is likely related to pain and anxiety. Once her blood pressure is controlled, there is no contraindication to surgery as planned. Risk of perioperative cardiac complications is low. No further diagnostic studies are recommended, unless blood pressure is impossible to control, at which time we will do a renal Doppler. I will see her back in 6 months or as needed. Written and verbal health teaching given to patient, patient verbalizes understanding and agrees with treatment plan. This note was generated using [employer] voice recognition system, and there may be some incorrect words, spellings, and punctuation that were not noted in checking the note before saving. DIAGNOSIS FOR VISIT: Preoperative cardiac risk assessment Hypertension HISTORY OF PRESENT ILLNESS Ramses Bradshaw returns for preoperative risk assessment. She has been having chronic abdominal discomfort with nausea and diarrhea. EGD is planned, followed by possible cholecystectomy. She reports fairly stable exercise tolerance. She continues to do her housework. She's had no recent episodes of chest discomfort. She has occasional palpitations, which are stable. She has shortness of breath with moderate to strenuous activity, but this is unchanged. She's had minimal edema. She has had no recent episodes of syncope. She denies palpitations, TIAs, amaurosis and claudication. ALLERGIES: ALLERGIES Allergen Reactions - Asa [Salicylates] - Erythromycin - Ibuprofen - Latex Unknown - Nsaids (Non-Steroid* Diarrhea, Vomiting CURRENT OUTPATIENT MEDICATIONS: cholecalciferol, Vitamin D3, (D3-50 CHOLECALCIFEROL) 50,000 unit cap capsule Take 50,000 Units by mouth once each week. tolterodine ER (DETROL LA) 4 mg 24 hr capsule Take 4 mg by mouth once daily. zolpidem (AMBIEN) 10 mg tab Take 10 mg by mouth daily at bedtime. LORazepam (ATIVAN) 1 mg tablet Take 1 mg by mouth twice daily. nitroglycerin sublingual (NITROQUICK) 0.4 mg SL tablet Dissolve 1 tablet under the tongue as needed. FOR CHEST PAIN. IF NO RELIEF CALL 911 DULoxetine (CYMBALTA) 60 mg capsule Take 60 mg by mouth once daily. Ferrous Fumarate 325 mg (106 mg iron) tab Take 325 mg by mouth twice daily. levothyroxine (LEVOTHROID) 25 mcg tablet Take 25 mcg by mouth once daily. Omeprazole Magnesium 20 mg cpDR Take 20 mg by mouth once daily. metoprolol tartrate (LOPRESSOR) 50 mg ORAL Tab Take one half (1/2) tablet twice daily lisinopril (PRINIVIL) 20 mg tablet Take 1 tablet by mouth once daily. hydrOXYzine pamoate (VISTARIL) 25 mg capsule Take 25 mg by mouth three times daily as needed. ARIPIPRAZOLE (ABILIFY ORAL) Take by mouth once daily. benztropine (COGENTIN) 1 mg tablet Take 1 mg by mouth twice daily. gabapentin (NEURONTIN) 600 mg tablet Take 600 mg by mouth twice daily. oxyCODONE-acetaminophen (PERCOCET) 10-325 mg tablet Take 1 tablet by mouth every 6 hours as needed. pravastatin (PRAVACHOL) 40 mg tablet Take 40 mg by mouth once daily. Calcium Carbonate-Vitamin D3 (VITAMIN D-3) 180-5,000 mg-unit tab Take by mouth once each week. PAST MEDICAL HISTORY Diagnosis Date - Depression - Hypertension - Hypothyroid - Sick sinus syndrome (HCC) PAST SURGICAL HISTORY Procedure Laterality Date - APPENDECTOMY - CARPAL TUNNEL left - HYSTERECTOMY HX - LAPAROSCOPY DIAGNOSTIC - PACEMAKER (PM) 2003 - PAST SURGICAL HISTORY OF lumbar pain injections. - [place] ANESTH,LUMBAR SPINE,CORD SURGERY 02/07/2016 L4-L5 fusion; [facility] - REVISE ULNAR NERVE AT ELBOW bilateral- with revisions FAMILY HISTORY Problem Relation Age of Onset - Multiple Sclerosis Father 26 at age 41 - Multiple Sclerosis Daughter 30 dx Mar 2016 - orthostatic hypotension [OTHER] Sister Social History Marital status: Spouse name: Years of education: 14 Number of children: 2 Social History Main Topics Smoking status: Current Every Day Smoker Packs/day: 0.50 Years: 27.00 Types: Cigarettes Smokeless status: Never Used Comment: Vapor Pen only. 6mg Nicotine Alcohol use: No Drug use: No Comment: Heavy EtOH use layla 2000. 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 Respiratory: No productive cough. Cardiac: As noted above. GI: No melena. : No dysuria. Musculoskeletal: No myalgias. PHYSICAL EXAMINATION: S/he is alert and in no distress. VITAL SIGNS: BP 162/112 Pulse 72 Ht 5' 2 (1.58m) Wt 176 lb 3.2 oz (79.9kg) BMI 32.22 kg/(m2). SHEENT: Skin is warm and dry. No xanthelasmas appreciated. Pharynx is benign. There is no oral cyanosis. Neck: supple. No adenopathy or thyroid enlargement. Chest: Clear to percussion and auscultation. Trachea is midline. Air entry is equal. There is no chest wall tenderness. Cardiac: Regular rhythm. S1 and S2 are normal. PMI is nondisplaced. There is a soft systolic ejection murmur. No click is heard. Carotids are brisk without bruits. JVP is less than 10 cm. Abdomen: Soft and mildly tender. There are no pulsatile masses or bruits. No liver enlargement. Bowel sounds are active. Extremities: No edema. Pulses are intact and symmetrical. No clubbing or cyanosis. No femoral bruits. Neurologic: Grossly normal motor and sensory. S/he is alert and oriented x4. EKG shows sinus rhythm and is within normal limits. There is no significant change. Recent pacemaker evaluation showed no evidence of atrial or ventricular arrhythmias. There is no depletion. Electronically Signed: Selwyn Farfan MD April 04, 2017 2:39 PM CC:Gee Leon MD CNOV Observed: 04/04/2017 Status: COMPLETED Source: [place] 2:30 PM CLINIC OTHER CAMPUS REPOSITORY Office Visit (AGCARDWST) RAMSES BRADSHAW ([id number]) 1965 F Date Time Provider Department 04/04/17 2:30 PM SELWYN FARFAN AGCARDWSSoha During your visit today, we recorded the following information about you: Pulse Blood pressure Weight Height 72/minute 162/112 79.9 kg 1.575 m Selwyn Farfan MD 04/04/2017 3:25 PM Signed PERTINENT CARDIAC HISTORY Syncope - multiple etiologies PPM - 2004, revised 2014 HL Chest pain PFO HTN ADHERENCE TO GUIDELINES DUSTIN-I or ARB for HF with prior LVEFANDlt;40 (NQF 0081) - N/A ASA or Plavix for ASHD (NQF 0067) - N/A Beta aislinn for ASHD with prior [place] or prior LVEFANDlt;40 (NQF 0070) - N/A Beta aislinn for HF with prior LVEFANDlt;40 (NQF 0083) - N/A DUSTIN-I or ARB for ASHD with DM or prior LVEFANDlt;40 (NQF 0066) - N/A Statin therapy for ASHD or FHL or DM - met BMI documented and plan if ANDgt;25 (NQF 0421) - lifestyle recommendation form Tobacco use screening and referral (NQF 0028) - lifestyle recommendation form Recommendation for whole food, plant based diet - lifestyle recommendation form CLINICAL IMPRESSION/PLAN: Ramses Bradshaw has stable cardiac issues. Her chest pain syndrome and shortness of breath are unchanged. She has undergone stress testing within the last 15 months and this showed no evidence of ischemia. She is known to have normal left ventricular function. There is no evidence of decompensated heart failure, arrhythmias or angina. Blood pressure is elevated today and was repeated and confirmed. This needs to be controlled prior to surgery. She was advised to increase lisinopril to 20 milligrams twice daily and contact me tomorrow with an update. I am reluctant to increase her beta aislinn within 2 weeks of surgery, but we may have no choice. Some of her blood pressure elevation is likely related to pain and anxiety. Once her blood pressure is controlled, there is no contraindication to surgery as planned. Risk of perioperative cardiac complications is low. No further diagnostic studies are recommended, unless blood pressure is impossible to control, at which time we will do a renal Doppler. I will see her back in 6 months or as needed. Written and verbal health teaching given to patient, patient verbalizes understanding and agrees with treatment plan. This note was generated using [employer] voice recognition system, and there may be some incorrect words, spellings, and punctuation that were not noted in checking the note before saving. DIAGNOSIS FOR VISIT: Preoperative cardiac risk assessment Hypertension HISTORY OF PRESENT ILLNESS Ramses Bradshaw returns for preoperative risk assessment. She has been having chronic abdominal discomfort with nausea and diarrhea. EGD is planned, followed by possible cholecystectomy. She reports fairly stable exercise tolerance. She continues to do her housework. She's had no recent episodes of chest discomfort. She has occasional palpitations, which are stable. She has shortness of breath with moderate to strenuous activity, but this is unchanged. She's had minimal edema. She has had no recent episodes of syncope. She denies palpitations, TIAs, amaurosis and claudication. ALLERGIES: ALLERGIES Allergen Reactions - Asa [Salicylates] - Erythromycin - Ibuprofen - Latex Unknown - Nsaids (Non-Steroid* Diarrhea, Vomiting CURRENT OUTPATIENT MEDICATIONS: cholecalciferol, Vitamin D3, (D3-50 CHOLECALCIFEROL) 50,000 unit cap capsule Take 50,000 Units by mouth once each week. tolterodine ER (DETROL LA) 4 mg 24 hr capsule Take 4 mg by mouth once daily. zolpidem (AMBIEN) 10 mg tab Take 10 mg by mouth daily at bedtime. LORazepam (ATIVAN) 1 mg tablet Take 1 mg by mouth twice daily. nitroglycerin sublingual (NITROQUICK) 0.4 mg SL tablet Dissolve 1 tablet under the tongue as needed. FOR CHEST PAIN. IF NO RELIEF CALL 911 DULoxetine (CYMBALTA) 60 mg capsule Take 60 mg by mouth once daily. Ferrous Fumarate 325 mg (106 mg iron) tab Take 325 mg by mouth twice daily. levothyroxine (LEVOTHROID) 25 mcg tablet Take 25 mcg by mouth once daily. Omeprazole Magnesium 20 mg cpDR Take 20 mg by mouth once daily. metoprolol tartrate (LOPRESSOR) 50 mg ORAL Tab Take one half (1/2) tablet twice daily lisinopril (PRINIVIL) 20 mg tablet Take 1 tablet by mouth once daily. hydrOXYzine pamoate (VISTARIL) 25 mg capsule Take 25 mg by mouth three times daily as needed. ARIPIPRAZOLE (ABILIFY ORAL) Take by mouth once daily. benztropine (COGENTIN) 1 mg tablet Take 1 mg by mouth twice daily. gabapentin (NEURONTIN) 600 mg tablet Take 600 mg by mouth twice daily. oxyCODONE-acetaminophen (PERCOCET) 10-325 mg tablet Take 1 tablet by mouth every 6 hours as needed. pravastatin (PRAVACHOL) 40 mg tablet Take 40 mg by mouth once daily. Calcium Carbonate-Vitamin D3 (VITAMIN D-3) 180-5,000 mg-unit tab Take by mouth once each week. PAST MEDICAL HISTORY Diagnosis Date - Depression - Hypertension - Hypothyroid - Sick sinus syndrome (HCC) PAST SURGICAL HISTORY Procedure Laterality Date - APPENDECTOMY - CARPAL TUNNEL left - HYSTERECTOMY HX - LAPAROSCOPY DIAGNOSTIC - PACEMAKER (PM) 2003 - PAST SURGICAL HISTORY OF lumbar pain injections. - [place] ANESTH,LUMBAR SPINE,CORD SURGERY 02/07/2016 L4-L5 fusion; [facility] [place] - REVISE ULNAR NERVE AT ELBOW bilateral- with revisions FAMILY HISTORY Problem Relation Age of Onset - Multiple Sclerosis Father 26 at age 41 - Multiple Sclerosis Daughter 30 dx Mar 2016 - orthostatic hypotension [OTHER] Sister Social History Marital status: Spouse name: Years of education: 14 Number of children: 2 Social History Main Topics Smoking status: Current Every Day Smoker Packs/day: 0.50 Years: 27.00 Types: Cigarettes Smokeless status: Never Used Comment: Vapor Pen only. 6mg Nicotine Alcohol use: No Drug use: No Comment: Heavy EtOH use unt2000. 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 Respiratory: No productive cough. Cardiac: As noted above. GI: No melena. : No dysuria. Musculoskeletal: No myalgias. PHYSICAL EXAMINATION: S/he is alert and in no distress. VITAL SIGNS: BP 162/112 Pulse 72 Ht 5' 2ANDquot; (1.58m) Wt 176 lb 3.2 oz (79.9kg) BMI 32.22 kg/(m2). SHEENT: Skin is warm and dry. No xanthelasmas appreciated. Pharynx is benign. There is no oral cyanosis. Neck: supple. No adenopathy or thyroid enlargement. Chest: Clear to percussion and auscultation. Trachea is midline. Air entry is equal. There is no chest wall tenderness. Cardiac: Regular rhythm. S1 and S2 are normal. PMI is nondisplaced. There is a soft systolic ejection murmur. No click is heard. Carotids are brisk without bruits. JVP is less than 10 cm. Abdomen: Soft and mildly tender. There are no pulsatile masses or bruits. No liver enlargement. Bowel sounds are active. Extremities: No edema. Pulses are intact and symmetrical. No clubbing or cyanosis. No femoral bruits. Neurologic: Grossly normal motor and sensory. S/he is alert and oriented x4. EKG shows sinus rhythm and is within normal limits. There is no significant change. Recent pacemaker evaluation showed no evidence of atrial or ventricular arrhythmias. There is no depletion. Electronically Signed: Selwyn Farfan MD April 04, 2017 2:39 PM CC:MD Selwyn Beth MD 04/04/2017 2:39 PM Signed LIFESTYLE CHANGE A healthy lifestyle is the most important component of your overall treatment plan. Please give serious thought to the following areas and commit to making group home changes. EAT A WHOLE FOOD, PLANT BASED DIET The nutrition your body gets is more important than the medicine you take. What matters most is the overall way you eat. We encourage you to minimize the use of animal products (which include dairy and all meats except fatty fish) and use whole, unprocessed plant foods to provide your protein, vitamins and other nutrients. We have a lot of information to share with you on this topic. We also hold Shared Medical Appointments, where you can come visit with Dr. Farfan in the company of other patients and spend over an hour talking about the challenges of changing the way you eat. This is not a ANDquot;dietANDquot;. It is a way of life that you will keep with you. EXERCISE REGULARLY It is not important to spend hours in the gym, lifting weights and perspiring heavily. A total of 2-3 hours per week of aerobic (causing you to be moderately short of breath) exercise is sufficient to improve your health. Talk to us before you begin a new exercise program, if you have heart disease or experience shortness of breath or chest pain. REDUCE STRESS Chronic emotional and physical stress leads to disease. Ways of reducing stress include meditation, visualization, prayer, yoga and other forms of relaxation therapy. Consistency is the gonzalez. Find a technique that works for you and do it every day. CULTIVATE RELATIONSHIPS Loneliness and isolation have a major negative impact on health. Seek out others who can love, care for and nurture you. Avoid hurtful relationships. MAINTAIN IDEAL BODY WEIGHT The best way to do this is to do all the things above. Our bodies naturally find the right weight if we keep moving and feed ourselves the right food. If your BMI is greater than 25, we strongly recommend a referral to a weight management program. Please speak to us or your family physician about available programs. AVOID NICOTINE IN ALL FORMS This includes all tobacco products, whether chewed, smoked, vaped, or rubbed on the skin. Smoking cessation programs, which can make use of tobacco substitutes, medications to suppress cravings and behavior management, are available. Please contact your family physician about programs in your area. Johny Valencia, RN, RN 04/05/2017 8:28 AM Signed Copy of OV note mailed to Dr. Leon's office. Referring Provider: SELWYN FARFAN [[id number]] Allergies As of Date: 04/04/2017 Noted Allergy Reaction ASA (SALICYLATES) 11/14/2004 ERYTHROMYCIN 11/14/2004 IBUPROFEN 11/14/2004 LATEX 06/30/2010 16 - Unknown NSAIDS (NON-STEROIDAL ANTI-INFLAM*02/23/2014 6 - Diarrhea 11 - Vomiting Date Reviewed: 04/04/2017 Reviewed by: Johny (Rn) CARMELA Valencia - Fully Assessed Reason for Visit: Follow Up [171] Primary Visit Diagnosis:Preop cardiovascular exam [Z01.810] Other Visit Diagnosis:Essential hypertension [I10] Order(s):ECG B/O W INTERP (MED OFFICE) [ECG06] Order #: [id number] lisinopril (PRINIVIL) 20 mg tabletTake 1 tablet by mouth twice daily.Disp: Rfl: Prescriptions as of 04/04/2017 Sig: CHOLECALCIFEROL (VITAMIN D3) * Take 50,000 Units by mouth on* TOLTERODINE ER 4 MG CAPSULE,E* Take 4 mg by mouth once daily. ZOLPIDEM 10 MG TABLET Take 10 mg by mouth daily at * LORAZEPAM 1 MG TABLET Take 1 mg by mouth twice sidra* NITROGLYCERIN 0.4 MG SUBLINGU* Dissolve 1 tablet under the t* DULOXETINE 60 MG CAPSULE,VANESA* Take 60 mg by mouth once sidra* FERROUS FUMARATE 325 MG (106 * Take 325 mg by mouth twice da* LEVOTHYROXINE 25 MCG TABLET Take 25 mcg by mouth once kaycee* OMEPRAZOLE MAGNESIUM 20 MG CA* Take 20 mg by mouth once sidra* * LOPRESSOR 50 MG TABLET Take one half (1/2) tablet tw* LISINOPRIL 20 MG TABLET Take 1 tablet by mouth twice * HYDROXYZINE PAMOATE 25 MG CAP* Take 25 mg by mouth three alo* ABILIFY ORAL Take by mouth once daily. BENZTROPINE 1 MG TABLET Take 1 mg by mouth twice sidra* GABAPENTIN 600 MG TABLET Take 600 mg by mouth twice da* OXYCODONE-ACETAMINOPHEN 10 MG* Take 1 tablet by mouth every * PRAVASTATIN 40 MG TABLET Take 40 mg by mouth once sidra* CALCIUM CARBONATE-VITAMIN D3 * Take by mouth once each week. Problem List As Of Date 04/04/2017 Noted Resolved ORTHOSTATIC HYPOTENSION [I95.1] INVALID FOR*08/15/2006 CARBUNCLE NOS [L02.92, L02.93] INVALID FOR* Syncope and collapse [R55] INVALID FOR*12/13/2015 SINOATRIAL NODE DYSFUNCT [I49.5] INVALID FOR* CARDIAC PACEMAKER IN SITU [Z95.0] INVALID FOR* Spinal stenosis, lumbar region, with neurogenic*INVALID FOR* Degeneration of lumbar or lumbosacral intervert*INVALID FOR* Other instructions from your clinician: LIFESTYLE CHANGE A healthy lifestyle is the most important component of your overall treatment plan. Please give serious thought to the following areas and commit to making adjunct faculty for medical terminology changes. EAT A WHOLE FOOD, PLANT BASED DIET The nutrition your body gets is more important than the medicine you take. What matters most is the overall way you eat. We encourage you to minimize the use of animal products (which include dairy and all meats except fatty fish) and use whole, unprocessed plant foods to provide your protein, vitamins and other nutrients. We have a lot of information to share with you on this topic. We also hold Shared Medical Appointments, where you can come visit with Dr. aFrfan in the company of other patients and spend over an hour talking about the challenges of changing the way you eat. This is not a diet. It is a way of life that you will keep with you. EXERCISE REGULARLY It is not important to spend hours in the gym, lifting weights and perspiring heavily. A total of 2-3 hours per week of aerobic (causing you to be moderately short of breath) exercise is sufficient to improve your health. Talk to us before you begin a new exercise program, if you have heart disease or experience shortness of breath or chest pain. REDUCE STRESS Chronic emotional and physical stress leads to disease. Ways of reducing stress include meditation, visualization, prayer, yoga and other forms of relaxation therapy. Consistency is the gonzalez. Find a technique that works for you and do it every day. CULTIVATE RELATIONSHIPS Loneliness and isolation have a major negative impact on health. Seek out others who can love, care for and nurture you. Avoid hurtful relationships. MAINTAIN IDEAL BODY WEIGHT The best way to do this is to do all the things above. Our bodies naturally find the right weight if we keep moving and feed ourselves the right food. If your BMI is greater than 25, we strongly recommend a referral to a weight management program. Please speak to us or your family physician about available programs. AVOID NICOTINE IN ALL FORMS This includes all tobacco products, whether chewed, smoked, vaped, or rubbed on the skin. Smoking cessation programs, which can make use of tobacco substitutes, medications to suppress cravings and behavior management, are available. Please contact your family physician about programs in your area. Visit Notes: >> Johny (Rn) CARMELA Valencia SatApr 05, 2017 8:28 AM Status: Signed Copy of OV note mailed to Dr. Leon's office. Prescriptions ordered this encounter Disp Refills Start End LISINOPRIL 20 MG TABLET 0 04/04/2017 04/04/2017 Class: Med Update Route: ORAL Sig: Take 1 tablet by mouth once daily. LISINOPRIL 20 MG TABLET 04/04/2017 Class: Med Update Route: ORAL Sig: Take 1 tablet by mouth twice daily. Medications Discontinued During This Encounter lisinopril (PRINIVIL) 20 mg tablet 0 12/24/2016 04/04/2017 Class: Med Update Route: ORAL Sig: Take 0.5 tablets by mouth once daily. Disc: Reason for discontinue is not on file. lisinopril (PRINIVIL) 20 mg tablet 0 04/04/2017 04/04/2017 Class: Med Update Route: ORAL Sig: Take 1 tablet by mouth once daily. Disc: Reason for discontinue is not on file. Follow-up and Disposition History Recorded Classic SmartForms filed during this visit: InviBoxs Encounter Status:Closed by SELWYN FARFAN MD on 04/04/17 SURGERY VISIT REPORT Observed: 03/22/2017 Status: F Source: [place] 9:00 AM [facility] [address] [place] [address] OFFICE VISIT Date of Service: 03/21/17 MR#: [id number] Acct: [id number] Name: RAMSES BRADSHAW Anne Rep #: [id number] : 1965 Provider: Clarissa Casas MD Age/Sex: 51/F Location: [facility] Status: Signed Intake Vital Signs03/21/17 Height 5 ft 2.5 in 03/21/17 Weight: 185 lb 03/21/17 Body Mass Index (BMI) 33.3 Intake Visit Reasons: cholelithiasis, 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: No Is patient in pain?: Yes (RUQ pain ) Pain scale (1-10): 8 Allergies erythromycin base [Erythromycin Base] Adverse Reaction (Verified 03/21/17 09:00) Vomiting,diarrhea NSAIDS (Non-Steroidal Anti-Inflamma Adverse Reaction (Verified 03/21/17 09:00) Vomiting,diarrhea percocet Allergy (Mild, Uncoded 03/21/17 08:47) Unknown shellfish Allergy (Mild, Uncoded 03/21/17 08:47) Unknown Medications Duloxetine Hcl [Cymbalta] 60 mg PO DAILY 03/28/15 [History Confirmed 03/21/17] Levothyroxine [Synthroid] 25 mcg PO DAILY 03/28/15 [History Confirmed 03/21/17] Lisinopril [Zestril] 20 mg PO DAILY 03/28/15 [History Confirmed 03/21/17] Metoprolol Tartrate [Lopressor (beta aislinn)] 25 mg PO BID 03/28/15 [History Confirmed 03/21/17] Omeprazole [Prilosec] 20 mg PO DAILY 04/18/16 [History Confirmed 03/21/17] Tolterodine Tartrate [Tolterodine Tartrate ER] 4 mg PO DAILY 04/18/16 [History Confirmed 03/21/17] Lorazepam [Ativan] 1 mg PO BID 08/22/16 [History Confirmed 03/21/17] Ferrous Sulfate 325 mg PO BID 09/11/16 [History Confirmed 03/21/17] Zolpidem Tartrate [Ambien] 10 mg PO QHS 09/11/16 [History Confirmed 03/21/17] Ondansetron [Zofran Odt] 4 mg PO Q8H PRN PRN #10 tab 03/06/17 [Rx Confirmed 03/21/17] PFSH Medical History History of anxiety disorder (Chronic) Benign essential hypertension (Chronic) Obesity (Chronic) Familial combined hyperlipidemia (Chronic) Tobacco dependence syndrome (Chronic) Chronic pain syndrome (Chronic) Chest tightness (Acute) Chronic lower back pain (Chronic) Sinus pause (Chronic) h/o back surgery (Acute) Surgical History Status post placement of cardiac pacemaker (Chronic) S/P appendectomy (Acute) S/P hysterectomy (Acute) S/P laparoscopy (Acute) S/P laparotomy (Acute) Family History Daughter Asthma Father Heart disease Hypertension CAD (coronary artery disease) Social History Smoking Status: Former smoker alcohol intake: never HPI HPI HPI: RAMSES BRADSHAW, is a 51 F who presents to the office today for right upper quadrant pain and diarrhea. Patient states that since the week after she is had diarrhea but more recently she is began to have a right upper quadrant pain that occasionally can radiate around her back and/or shoulder, which will only last seconds, occurring about 10 minutes after eating especially spicy foods patient has changed her diet to mostly light diet/clears. She states she also does have diarrhea daily states greenish in color. Patient states her right upper quadrant pain is a constant 6-8/10 she has tried Tylenol for the pain. Patient denies epigastric pain or reflux since she has been started on her medication. However she does admit to positive nausea and her last time with emesis was 3 days ago. Patient did undergo an ultrasound which showed a normal distended GB, small amount of sludge and some possible adenomyomatosis of the gallbladder, wall 4 mm, no pericholecystic fluid;however, after reviewing the u/s most of the wall is <3mm and the area measured 4 mm seems to include some additional tissue, normal LFTs. Past medical history does include pacer for sick sinus syndrome patient states that when off may be about 2 days ago she does see Dr. Farfan for her for this patient is unsure when the last time when off prior to this because she cannot always feel it. She is due for a device check soon. Exam Const General: cooperative, no acute distress Nutritional Appearance: obese Resp Auscultation: clear to auscultation bilaterally Cardio Rate: regular rate Rhythm: regular rhythm GI Other: Soft, nondistended, tender to palpation in the right upper quadrant/epigastric/left upper quadrant, no guarding or rebound Assessment AND Plan Problems 1. RUQ pain R10.11 2. LUQ abdominal tenderness R10.812 3. Gastroesophageal reflux disease K21.9 4. Nausea vomiting and diarrhea R11.2; R19.7 Plan On exam patient does have diffuse tenderness across her upper abdomen. Some this may be due to her gallbladder and some may also be due to her stomach. I would first recommend an EGD to evaluate with her history of reflux in her left upper quadrant pain. Then I would plan to get HIDA scan to check her gallbladder function as her ultrasound of her gallbladder was not consistent with the amount of pain that she states she is having. The gallbladder on ultrasound was called thickened due to one area that they measured that was 4 mm however this area looks to involve more tissue than just the wall and most of the other wall of the gallbladder on ultrasound was less than 3 mm. Additionally in the possible adenomyomatosis of GB would not be able to cause this kind of pain since it is stationary on the wall the gallbladder is not affecting the neck to cause any obstructive symptoms. Will schedule EGD and then HIDA once EGD is complete. Patient is agreeable with plan. Clairssa Casas M.D. Pager: [phone] [facility] [address] [place] [address], [address] [place] [address] Office: [phone] Orders Orders: Plan Detail Follow Up 1 (Schedule EGD and HIDA scan once that is complete.) 03/22/17 0900 <Electronically signed by Clarissa Casas MD> Date Clarissa Orrign Signature: Date (if applicable) CC: Gee Leon MD EMERGENCY DEPARTMENT Observed: 03/07/2017 Status: F Source: [place] SUMMARY 1:27 AM [facility] [place] [facility] Medical Records Department [address] [place] [address] Emergency Department Summary 03/06/17 2311 MR#: [id number] Acct: [id number] Name: RAMSES BRADSHAW Rep #: [id number] : 1965 51 From: Kaushal Mendoza MD PCP: Gee Leon MD Status: DEP ER - ER Visit Summary Date of Service: 03/06/17 Chief Complaint: Diarrhea History of Present Illness: The patient is a [address] Adams. She reports that she has diarrhea that began 3-4 weeks ago. States that she is having it multiple times per day. No blood in her stools. She reports that she has sharp, aching abdominal pain is 1010 a worsening of 10 currently. Is worsened by nothing relieved by nothing. She was she has been nauseated and vomited twice. No blood in her emesis. Patient denies sick contacts. Has not been camping out of the country. No possible bad food exposure. Does not drink well water. No recent antibiotic use. Physical Examination: Vitals: Stable. Afebrile. General: Well-nourished and well-developed. Head: Normocephalic atraumatic. Neck: Supple, no lymphadenopathy. No JVD. Nontender. Cardiovascular: Regular rate and rhythm. No murmurs. Respiratory: No respiratory distress. Clear to auscultation bilaterally. Abdominal: Soft, minimal diffuse tenderness to palpation, nondistended, normal bowel sounds. No guarding, rebound, or peritoneal signs. Back: Nontender. Extremities: Nontender, no edema. Skin: Normal color, no rash. Neurologic: Alert and oriented 3. Cranial nerves II through XII are intact. Normal strength and sensation. Psych: Normal affect. Test Results: CBC is marked for white count of 12.7. Chem- 7 is marked potassium 3.3 chloride 111. LFTs marked for an AST of 14. Lipase is normal. Patient had a right upper quadrant ultrasound earlier this week that shows a gallbladder wall 4 mm. No pericholecystic fluid. No Dietrich sign. No gallstones. There was sludge present. Common bile duct is 4 mm. Question the possibility of adenomyomatosis. Emergency Department Course and Treatment: Patient was given a liter of normal saline and Zofran IV. She has not had diarrhea while here. Treatment Plan: He will be discharged with Zofran. Instructed to push fluids. Follow-up her primary care physician 1 week if not improving. Keep her scheduled appoint with general surgery regarding her gallbladder. Disposition: To home in improved and stable condition. Impression: 1. Diarrhea. This note was generated with Auxogynation software. It may contain incorrect words, spelling, and punctuation that were not noted in review of the chart prior to signing ED Disposition - Plan for ED Patient: Disposition: Home or Assisted Living Chief Complaint: Nausea/Vomiting/Diarrhea Instructions: ED Diarrhea Viral Prescriptions: Ondansetron [Zofran Odt] 4 mg PO Q8H PRN PRN #10 tablet PRN Reason: Nausea Referrals: Michael Leon MD [Primary Care Provider] - 1 Week if not improving What to do if you have Problems For any increased pain, shortness of breath, bleeding, nausea or vomiting, chest pain, or any unexpected problems, contact your Primary Care Provider. Call [facility] ([phone]) or report to the closest Emergency Room. Call 911 if necessary. 03/07/17 0127 <Electronically signed by Kaushal Mendoza MD> Date Kaushal Mendoza MD Cosigner Signature (If Indicated): Date CC: Gee Leon MD CBC W/DIFF, AUTOMATED Collected: 03/06/2017 Status: F Source: [place] 9:45 PM [facility] [place] TYPE CODE TESTS RESULT OUT OF RANGE REFERENCE UNITS LAB L100.1000 4.4-11.0 K/mm3 High WBC 12.7 LAB L100.1200 4.2-5.4 M/mm3 Normal RBC 4.53 LAB L100.1300 12.0-15.0 g/dl Normal HGB 14.1 LAB L100.1400 37-47 % Normal HCT 42.7 LAB L100.1500 81-99 fL Normal MCV 94.3 LAB L100.1600 27.0-32.0 pg Normal MCH 31.1 LAB L100.1700 32-36 g/gl Normal MCHC 33.0 LAB L100.1810 11.6-14.6 % Normal RDW CV 13.1 LAB L100.1820 35.1-43.9 fl High RDW SD 44.9 LAB L100.1900 150-450 K/mm3 Normal PLT 260 LAB L100.2000 6.2-12.0 fl Normal MPV 10.1 LAB L100.2100 47-70 % Normal NEUT% 58.7 LAB L100.2200 19-41 % Normal LY% 32.3 LAB L100.2300 0-10 % Normal MONO% 7.1 LAB L100.2400 0-5 % Normal EO% 1.5 LAB L100.2500 0-1 % Normal BASO% 0.2 LAB L100.2550 0.0-0.9 % Normal IM GRAN % 0.200 Result Comment: IG% - Immature Granulocytes (promyelocytes, myelocytes and metamyelocytes) > 1% indicates that a LEFT SHIFT is Present. LAB L100.2620 2.0-7.7 X10 3/uL Normal Absolute Neut 7.4 LAB L100.2720 0.83-4.51 X10 3/ul Normal Absolute Lymph 4.09 Performed By: #### L100.0100 #### [facility] [address] [place], [address] BASIC METABOLIC Collected: 03/06/2017 Status: F Source: [place] PROFILE (B[place]) 9:45 PM [facility] [place] CODE TESTS RESULT OUT OF RANGE REFERENCE UNITS LAB L501.0100 70-110 mg/dL Normal GLU 84 LAB L501.1000 7-18 mg/dL Normal BUN 16 LAB L501.1100 0.55-1.02 mg/dL Normal 0.86 CREAT,SERUM Result Comment: The validity of the calculated GFR AND GFRAA in patients over 70 years has not been determined. Clinical correlation is essential. LAB L501.1110 >60 mL/min Normal EST GFR 74 Result Comment: Non- GFR Calc LAB L501.1115 >60 mL/min Normal EST GFR - AA 89 Result Comment: GFR Calc LAB L501.1255 ml/min Normal Estimated CRCL 61.21 LAB L501.1300 10-20 RATIO Normal BUN/CRE 18.6 LAB L501.2200 8.5-10 mg/dL Normal .1 CA 9.4 LAB L501.5300 136-14 mmol/L Normal 5 NA 145 LAB L501.5600 3.5-5. mmol/L Low 1 K 3.3 LAB L501.5900 98-107 mmol/L High CL 111 LAB L501.6100 21.0-3 mmol/L Normal 2.0 CO2 28.0 LAB L501.6200 5-15 Normal GAP 6 Performed By: #### L500.2500, L500.3400, L501.2450 #### [facility] [address] [facility] [place], [address] LIVER PROFILE Collected: 03/06/2017 Status: F Source: [place] 9:45 PM [facility] [place] TYPE CODE TESTS RESULT OUT OF RANGE REFERENCE UNITS LAB L501.1500 6.4-8.2 g/dL Normal T PROT 7.7 LAB L501.1800 3.4-5.0 g/dL Normal ALB 4.1 Result Comment: Please note revised Albumin AND Globulin reference range effective 2016. LAB L501.1950 2.2-4.2 g/dL Normal GLOB 3.6 LAB L501.4100 15-37 U/L Low AST 14 LAB L501.4305 45-117 U/L Normal ALK P 91 LAB L501.4405 12-78 U/L Normal ALT 23 LAB L501.4600 0.20-1.00 mg/dL Normal T BILI 0.30 LAB L501.4700 0.00-0.30 mg/dL Normal D BILI 0.07 Performed By: #### L500.2500, L500.3400, L501.2450 #### [facility] [address] [place], [address] LIPASE Collected: 03/06/2017 Status: F Source: [place] 9:45 PM [facility] [place] TYPE CODE TESTS RESULT OUT OF RANGE REFERENCE UNITS LAB L501.2450 73-393 U/L Normal LIPASE 94 Performed By: #### L500.2500, L500.3400, L501.2450 #### [facility] [address] [place], [address] ABDOMEN LIMITED Observed: 03/01/2017 Status: F Source: [place] 10:17 AM [facility] [place] [facility] Imaging Services [address] [place] [address] Abdomen Limited MR#: [id number] Acct: [id number] Name: RAMSES BRADSHAW Rep #: [id number] : 1965 F 51 From: Ming Roberts MD PCP: Gee Leon MD Status: REG CLI Study: Abdomen Limited Date of Exam: 03/01/17 Exam# [id number] Ordering Dr: Michael Leon MD STUDY: ABDOMINAL ULTRASOUND - RIGHT UPPER QUADRANT REASON FOR VISIT: Female, 51 years old. Right upper quadrant pain. TECHNIQUE: Ultrasound evaluation of the right upper quadrant was performed with real-time and static morley-scale imaging. TECHNICAL QUALITY: Adequate. COMPARISON: None. FINDINGS: Liver: The liver measures 15.6 cm. There is normal echogenicity of the liver. The bile ducts are within normal limits. There is hepatic color flow. The direction of portal flow is hepatopetal. There is no demonstrated mass lesion. Gallbladder: Normal distended gallbladder. The gallbladder wall measures 4.0 mm. There is a negative sonographic Dietrich's sign. There is no pericholecystic fluid. There are no gallstones. There are comet tail artifacts are seen along the anterior gallbladder wall. This is suggestive of adenomyomatosis. Small amount of sludge is seen along the dependent wall the gallbladder. Common Bile Duct (C.B.D.): The common bile duct measures 4.0 mm. Pancreas: Normal size of the head, body and tail of the pancreas. There is normal echogenicity of the pancreas. There is no demonstrated pancreatic mass or cyst. Right Kidney: Normal size of the right kidney. The right kidney measures 11.1 cm x 4.7 cm x 5.7 cm. Normal renal cortex. The right cortex measures 1.2 cm. There is no demonstrated renal mass or cyst. There is no right hydronephrosis. US/Abdomen Limited IMPRESSION: Thickening of the gallbladder wall. Findings suggestive of adenomyomatosis of the gallbladder. Small amount of sludge in the gallbladder lumen. Electronically Signed: Ming Roberts MD at 11:47 EST Tel [phone], Service support , CC: Gee Leon MD Cell Feed Department Supervisor: Signed ALLERGIES ALLERGIES DATE TYPE / CODE NAME / CODE REACTION SEVERITY SOURCE Drug NSAIDS Vomiting,diar Unknown [place] 8 Allergy/614065619( (Non-Steroidal [facility]) Anti-Inflamma/F00 Hospital 0013155(RXNORM) Repository Drug erythromycin Vomiting,diar Unknown [place] 8 Allergy/025740115( base/L293296363(R cuc[facility]) XNORM) Hospital Repository Drug aspirin/P13168859 Nausea/Vom/Di Unknown [place] 8 Allergy/219577226( 7(RXNORM) arrhea [facility] SNOMED CT) Hospital Repository Drug morphine/N1305339 Nausea/Vom/Di Unknown [place] 8 Allergy/813885331( 45[facility] Miscellaneous shellfish Unknown [place] 8 Allergy/290325120( [facility] SNOM[facility]) Hospital Repository Miscellaneous percocet Unknown [place] 8 Allergy/933850931( [facility] SNOM[facility]) Hospital Repository Drug NSAIDS DIARRHEA [place] 4 Class/053747451(SN (NON-STEROIDAL Clinic Other OMED CT) ANTI-INFLAMMATORY [place] [facility]) Repository Drug NSAIDS DIARRHEA [place] 4 Class/083245809(SN (NON-STEROIDAL Clinic Other OMED CT) ANTI-INFLAMMATORY [place] [facility]) Repository DRUG LATEX OTHER: SEE C [facility] [place] 1 INGREDI/841408463( Clinic Other SNOMED CT) [place] Repository DRUG LATEX UNKNOWN [place] 1 INGREDI/542503921( Clinic Other SNOMED CT) [place] Repository Drug SALICYLATES GI UPSET [facility] [place] 5 Class/548110352(SN Clinic Other OMED CT) [place] Repository DRUG/024304422(SNO ERYTHROMYCIN Vomiting [place] [address] Clinic Other [place] Repository DRUG IBUPROFEN GI UPSET [facility] [place] 5 INGREDI/394081509( Clinic Other SNOMED CT) [place] Repository Drug SALICYLATES Parm[place] 5 Class/183414486(SN Clinic Other OMED CT) [place] Repository DRUG/539432002(SNO ERYTHROMYCIN [facility] [address]) Clinic Other [place] Repository DRUG IBUPROFEN [place] 5 INGREDI/834464635( Clinic Other SNOMED CT) [place] Repository Drug NSAID/77953568(RX Moderate Jamar [place] Allergy/462672111( NORM) ([facility]) Modifier) [facility] (Qualifier Repository Value) Drug ERYTHROMYCIN/0000 Moderate Jamar [place] Allergy/445810147( 0326(RXNORM) ([facility]) Modifier) [facility] (Qualifier Repository Value) NG/017102963(SNOME SALICYLATES [facility] D [facility]) [facility] System Repository NG/917380383(SNOME ERYTHROMYCIN [facility] D [facility]) [facility] Repository NG/333642073(SNOME IBUPROFEN [facility] D [facility]) [facility] Repository NG/475295853(SNOME LATEX [facility] D [facility]) [facility] Repository NG/045301928(SNOME NSAIDS [facility] D [facility]) (NON-STEROIDAL Health System ANTI-INFLAMMATORY Repository DRUG) ENCOUNTERS ENCOUNTERS ADMIT/DISCHARGE ACCOUNT NUMBER ADMITTING ENCOUNTER LOCATION SOURCE CLASS 02/18/2018 [id number] Ambulatory [facility] ding:RAD.FUT Repository URE 02/10/2018 [id number] Ambulatory [facility] ding:RAD Repository 01/17/2018 [id number] Ambulatory [facility] ding:CT Repository 01/14/2018/01/15/20 [id number] Emergency [address] ding:ED Repository 01/13/2018/01/15/20 [id number] Jcarlos Price Ambulatory [address] ding:PCURoom Repository : USV112Ulj: 1 01/13/2018 [id number] Jcarlos Price Ambulatory BMSBuilding: [place] BMS.[facility] Repository 01/13/2018 [id number] Ambulatory BMSBuilding: N[place] [facility] Repository 01/13/2018 [id number] Ambulatory BMSBuilding: [place] BMS.[facility]ly [facility] Repository 01/08/2018/01/09/20 [id number] Ambulatory [address] Repository 01/06/2018/01/07/20 [id number] Ambulatory [address] ding:ENRoom: Repository AC11 01/06/2018/01/07/20 [id number] Ambulatory BMSBuilding: [place] 18 BMS.CF.[facility] Repository 12/27/2017 [id number] Ambulatory [facility] ding:PT Repository 12/27/2017/12/28/19 [id number] Ambulatory BMSBuilding: [place] 18 BMS.[facility] Repository 12/24/2017/12/25/19 [id number] Ambulatory BMSBuilding: [place] 18 BMS.[facility] Repository 12/16/2017 [id number] Ambulatory [facility] ding:RAD Repository 12/03/2017 [id number] Ambulatory BMSBuilding: [place] BMS.[facility] Repository 12/02/2017/12/03/19 [id number] Ambulatory [address] Repository 11/21/2017/11/26/19 [id number] Ambulatory [address] Repository 11/21/2017/11/23/19 [id number] Ambulatory [address] Repository 10/29/2017 [id number] Ambulatory [facility] ding:LAB Repository 10/21/2017 [id number] Ambulatory [facility] MEDICAL Repository CENTERBuildi ng:CAGWS 10/14/2017 [id number] Ambulatory [facility] ding:RAD.FUT Repository URE 10/08/2017/10/10/19 [id number] MEG, Emergency Buildin[address] [place] [address] Room: ERBed: [facility] Repository 10/08/2017/10/09/19 [id number] Emergency [address] ding:ED Repository 10/04/2017/10/05/19 [id number] Emergency [address] ding:ED Repository 08/26/2017/08/28/19 [id number] Emergency [address] ding:ED Repository 08/23/2017/08/24/[id number] JADE Emergency Buildin Jamar[address] Room: ERBed: [facility] Repository 08/22/2017/08/23/19 [id number] Emergency [address] ding:ED Repository 06/24/2017 [id number] Ambulatory [facility] MEDICAL Repository CENTERBuildi ng:CAGWS 06/18/2017/06/19/19 [id number] Ambulatory [address] Repository 06/18/2017/06/19/19 [id number] Ambulatory [address] MEDICAL Repository SALUDABuildi ng:AGGENS1 06/05/2017 [id number] Ambulatory [facility] MEDICAL Repository SALUDABuildi ng:AKPAT 05/30/2017/06/02/19 [id number] GIOVANNI HERNÁNDEZ Inpatient [address] Repository 05/30/2017/06/02/19 [id number] GIOVANNI HERNÁNDEZ Inpatient [address] MEDICAL Repository SALUDABuild nARoom: 5207Bed: 05/22/2017 [id number] Ambulatory [facility] ding:LABSPEC Repository 05/22/2017/05/23/19 [id number] Ambulatory BMSBuilding: [place] [address] [place] [address] Repository 05/21/2017 [id number] Ambulatory [facility] Repository 05/21/2017/05/22/19 [id number] Ambulatory [address] MEDICAL Repository CENTERBuildi ng:AKLB 05/21/2017 [id number] Ambulatory [facility] Repository 05/21/2017 [id number] Ambulatory [facility] MEDICAL Repository SALUDABuildi ng:AKPAT 05/20/2017/05/21/19 [id number] Ambulatory [address] ding:ENRoom: Repository AC10 05/20/2017 [id number] Ambulatory BMSBuilding: [place] BMS.CF.[facility] Repository 05/17/2017/05/18/19 [id number] Ambulatory BMSBuilding: [place] 18 BMS.[facility] Repository 05/14/2017/05/15/19 [id number] Ambulatory [address] Other [place] Repository 05/14/2017/05/15/19 [id number] Ambulatory [address] MEDICAL Repository CENTERBuildi ng:AGGENS1 05/01/2017/05/02/19 [id number] Ambulatory [address] Main [place] Repository 05/01/2017/05/01/19 [id number] Ambulatory [address] [place] Repository 04/22/2017/04/22/19 [id number] Ambulatory [address] [place] Repository 04/22/2017/04/22/19 [id number] Ambulatory [address] Other [place] Repository 04/22/2017/04/22/19 [id number] Ambulatory [address] MEDICAL Repository CENTERBuildi ng:AGGENS1 04/12/2017 [id number] Ambulatory [facility] ding:MTLAB Repository 04/11/2017/04/11/19 [id number] Ambulatory BMSBuilding: [place] 18 BMS.[facility] Repository 04/08/2017/04/08/19 [id number] Ambulatory [address] ding:EN Repository 04/08/2017 [id number] Ambulatory BMSBuilding: [place] BMS.CF.[facility] Repository 04/04/2017/04/04/19 [id number] Ambulatory [address] Repository 04/04/2017/04/04/19 [id number] Ambulatory [address] Repository CENTERBuildi ng:CAGWS 03/21/2017/03/21/19 [id number] Ambulatory BMSBuilding: [place] 18 BMS.[facility] Repository 03/06/2017/03/06/20 [id number] Emergency [address] ding:ED Repository 03/01/2017 [id number] Ambulatory [facility] ding:US Repository PAYERS PAYERS ENCOUNTER GUARANTOR PAYER SUBSCRIBER SOURCE 02/18/2018 RAMSES L Primary RAMSES L [place] [id number] E Insurance:HUMANA ROBERTSDOB: [facility] MEDICARE [facility] [id number] [place] Number: Repository [address]Rry: 330 [id number] [phone] (HP) Date:7455-85-08QI [address] [place] [address]WG: 02/18/2018 Secondary RAMSES L [place] Insurance:MEDICAIDPoli ROBERTSDOB: [facility] cy Number: [id number] Hospital [id number] Repository Date:2018-02-11 02/18/2018 Tertiary NOT GIVENUNK [place] Insurance:SELF PAY [facility] Number: Effective Repository Date:2018-02-11 02/10/2018 RAMSES L Primary RAMSES L [place] [id number] E Insurance:HUMANA ROBERTSDOB: [facility] MEDICARE [facility] [id number], [place] Number: Repository [address]Mlh: 330 [id number] [phone] (HP) Date:1716-13-95OD [address] [place] [address]NA: 02/10/2018 Secondary RAMSES L [place] Insurance:MEDICAIDPoli ROBERTSDOB: [facility] cy Number: [id number] Hospital [id number] Repository Date:2018-01-22 02/10/2018 Tertiary NOT GIVENUNK [place] Insurance:SELF PAY [facility] Number: Effective Repository Date:2018-01-22 01/17/2018 RAMSES L Primary RAMSES L [place] [id number] E Insurance:HUMANA ROBERTSDOB: [facility] MEDICARE [facility] [id number], [place] Number: Repository [address]Qxu: 330 [id number] [phone] (HP) Date:8636-38-20SS [address] [place] [address]TI: 01/17/2018 Secondary RAMSES L [place] Insurance:MEDICAIDPoli ROBERTSDOB: Community cy Number: [id number] Hospital [id number] Repository Date:2018-01-09 01/17/2018 Tertiary NOT GIVENUNK [place] Insurance:SELF PAY [facility] Number: Effective Repository Date:2018-01-09 01/14/2018 RAMSES L Primary RAMSES L [place] [id number] [address] Insurance:HUMANA ROBERTSDOB[facility] [id number] [place] Number: Repository [address]Vlr: 330 [id number] [phone] (HP) Date:4564-78-60NF [address] [place] [address]US: 01/14/2018 Secondary RAMSES L [place] Insurance:MEDICAIDPoli ROBERTSDOB: Community cy Number: [id number] Hospital [id number] Repository Date:2018-01-14 01/14/2018 Tertiary NOT GIVENUNK [place] Insurance:SELF PAY [facility] Number: Effective Repository Date:2018-01-14 01/13/2018 RAMSES L Primary RAMSES L [place] [id number] E Insurance:HUMANA ROBERTSDOB: [facility] MEDICARE [facility] [id number] [place] Number: Repository [address]Dqv: 330 [id number] [phone] (HP) Date:9128-21-28PJ [address] [place] [address]AU: 01/13/2018 Secondary RAMSES L [place] Insurance:MEDICAIDPoli ROBERTSDOB: Community cy Number: [id number] Hospital [id number] Repository Date:2018-01-13 01/13/2018 Tertiary NOT GIVENUNK [place] Insurance:SELF PAY [facility] Number: Effective Repository Date:2018-01-13 01/13/2018 RAMSES L Primary RAMSES L [place] [id number] E Insurance:HUMANA ROBERTSDOB: [facility] [id number], [place] Number: Repository [address]Zvp: 330 [id number] [phone] () Date:6257-62-90XA [address] [place] [address]ER: 01/13/2018 Secondary RAMSES L [place] Insurance:MEDICAIDPoli ROBERTSDOB: Community cy Number: [id number] Hospital [id number] Repository Date:2018-01-13 01/13/2018 Tertiary NOT GIVENUNK [place] Insurance:SELF PAY [facility] Number: Effective Repository Date:2018-01-13 01/13/2018 RAMSES L Primary RAMSES L [place] [id number] E Insurance:HUMANA ROBERTSDOB: [facility] [id number] Number: Repository [address]Any: (330 [id number] [phone] () Date:1491-63-48HC[address] [address]KW: 01/13/2018 Secondary RAMSES L [place] Insurance:MEDICAIDPoli ROBERTSDOB: Community cy Number: [id number] Hospital [id number] Repository Date:2018-01-13 01/13/2018 Tertiary NOT GIVENUNK [place] Insurance:SELF PAY [facility] Number: Effective Repository Date:2018-01-13 01/13/2018 RAMSES L Primary RAMSES L [place] [id number] E Insurance:HUMANA ROBERTSDOB: [facility] [id number] [place] Number: Repository [address]Exz: (330) [id number] [phone] () Date:2346-39-95HZ[address] [address]DP: 01/13/2018 Secondary RAMSES L [place] Insurance:MEDICAIDPoli ROBERTSDOB: Community cy Number: [id number] Hospital [id number] Repository Date:2018-01-13 01/13/2018 Tertiary NOT GIVENUNK [place] Insurance:SELF PAY [facility] Number: Effective Repository Date:2018-01-13 01/06/2018 RAMSES L Primary RAMSES L [place] [id number] E Insurance:HUMANA ROBERTSDOB: [facility] MEDICARE [facility] [id number] [place] Number: Repository [address]Cgt: 330 [id number] [phone] () Date:4524-84-75YY [address] [address]AU: 01/06/2018 Secondary RAMSES L [place] Insurance:MEDICAIDPoli ROBERTSDOB: Community cy Number: [id number] Hospital [id number] Repository Date:2017-12-27 01/06/2018 Tertiary NOT GIVENUNK [place] Insurance:SELF PAY [facility] Number: Effective Repository Date:2017-12-27 01/06/2018 RAMSES L Primary RAMSES L [place] [id number] E Insurance:HUMANA ROBERTSDOB: [facility] MEDICARE [facility] [id number] [place] Number: Repository [address]Tab: (330) [id number] [phone] () Date:4999-81-46ID [address] [place] [address]WI: 01/06/2018 Secondary RAMSES L [place] Insurance:MEDICAIDPoli ROBERTSDOB: [facility] cy Number: [id number] Hospital [id number] Repository Date:2017-12-27 01/06/2018 Tertiary NOT GIVENUNK [place] Insurance:SELF PAY [facility] Number: Effective Repository Date:2018-01-06 12/27/2017 RAMSES L Primary RAMSES L [place] [id number] E Insurance:HUMANA ROBERTSDOB: [facility] MEDICARE [facility] [id number] [place] Number: Repository [address]Jvw: 330 [id number] [phone] () Date:5172-40-63IE [address] [address]FU: 12/27/2017 Secondary RAMSES L [place] Insurance:MEDICAIDPoli ROBERTSDOB: Community cy Number: [id number] Hospital [id number] Repository Date:2017-08-09 12/27/2017 Tertiary NOT GIVENUNK [place] Insurance:SELF PAY [facility] Number: Effective Repository Date:2017-09-04 12/27/2017 RAMSES L Primary RAMSES L [place] [id number] E Insurance:HUMANA ROBERTSDOB: [facility] [id number], [place] Number: Repository [address]Cpr: 330 [id number] [phone] (HP) Date:1338-56-42YK [address] [place] [address]RK: 12/27/2017 Secondary RAMSES L [place] Insurance:MEDICAIDPoli ROBERTSDOB: Community cy Number: [id number] Hospital [id number] Repository Date:2017-12-25 12/27/2017 Tertiary NOT GIVENUNK [place] Insurance:SELF PAY [facility] Number: Effective Repository Date:2017-12-27 12/24/2017 RAMSES L Primary RAMSES L [place] [id number] E Insurance:HUMANA ROBERTSDOB: [facility] [id number], [place] Number: Repository [address]Xqc: 330 [id number] [phone] (HP) Date:6914-05-84AA [address] [place] [address]QB: 12/24/2017 Secondary RAMSES L [place] Insurance:MEDICAIDPoli ROBERTSDOB: Community cy Number: [id number] Hospital [id number] Repository Date:2017-12-16 12/24/2017 Tertiary NOT GIVENUNK [place] Insurance:SELF PAY [facility] Number: Effective Repository Date:2017-12-24 12/16/2017 RAMSES L Primary RAMSES L [place] [id number] E Insurance:HUMANA ROBERTSDOB: Community [facility] MEDICARE [facility] [id number], [place] Number: Repository [address]Hlf: 330 [id number] [phone] (HP) Date:8353-34-84AH[address] [address]QJ: 12/16/2017 Secondary RAMSES L [place] Insurance:MEDICAIDPoli ROBERTSDOB: Community cy Number: [id number] Hospital [id number] Repository Date:2017-12-16 12/16/2017 Tertiary NOT GIVENUNK [place] Insurance:SELF PAY [facility] Number: Effective Repository Date:2017-12-16 12/03/2017 RAMSES L Primary RAMSES L [place] [id number] E Insurance:HUMANA ROBERTSDOB: [facility] MEDICARE [facility] [id number] [place] Number: Repository [address]Gne: 330 [id number] [phone] () Date:0657-36-01HR [address] [address]GW: 12/03/2017 Secondary RAMSES L [place] Insurance:MEDICAIDPoli ROBERTSDOB: Community cy Number: [id number] Hospital [id number] Repository Date:2017-11-27 12/03/2017 Tertiary NOT GIVENUNK [place] Insurance:SELF PAY [facility] Number: Effective Repository Date:2017-11-27 10/29/2017 RAMSES L Primary RAMSES L [place] [id number] E Insurance:HUMANA LEEANNDOB: Community [facility] MEDIC[facility] PPOPolicy [id number] [place] Number: Repository [address]Hsj: 330 [id number] [phone] () Date:0245-31-20PL [address] [address]AU: 10/29/2017 Secondary RAMSES L [place] Insurance:MEDICAIDPoli ROBERTSDOB: Community cy Number: [id number] Hospital [id number] Repository Date:2017-10-29 10/29/2017 Tertiary NOT GIVENUNK [place] Insurance:SELF PAY [facility] Number: Effective Repository Date:2017-10-29 10/21/2017 RAMSES L Primary RAMSES L [facility] ROBERTSDOB: Insurance:HUMANA ELIOB: Health System MEDICARE PPOPolicy [id number] Number: [facility] [id number] [address], [place] Date: [address]Nzy: (HP) 10/21/2017 Secondary RAMSES L [facility] Insurance:[place] LEEANNB: Health System MEDICAIDPolicy Number: [id number] Repository [id number] Date: 10/14/2017 RAMSES L Primary RAMSES L [place] [id number] E Insurance:STUART BALLARDB: Community [place] [address] MEDICARE PPOPolicy [id number], [place] Number: Repository [address]Jyj: 330 [id number] [phone] (HP) Date:7759-81-55PQ[address] [address]WK: 10/14/2017 Secondary RAMSES L [place] [facility] LEEANNB: [facility] Number: [id number] Hospital [id number] Repository Date:2017-10-14 10/14/2017 Tertiary NOT GIVENUNK [place] Insurance:SELF PAY [facility] Number: Effective Repository Date:2017-10-14 10/08/2017 RAMSES L Primary RAMSES L Jamar P[place] LEEANNDOB: Insurance:HUMANA ELIOB: [facility] MEDICARE ADVANTAGE [id number] [place] [address], [place] Number: [place], [place] [address]Uux: 330 [id number] [phone] () Date:Plan Name: 10/08/2017 Secondary RAMSES L Jamar [place] Insurance:MEDICAID ROBERTSDOB: [facility] [id number] Hospital Number: [place] Repository [id number] [place] Date:Plan Name: [id number] 10/08/2017 RAMSES L Primary RAMSES L [place] [id number] E Insurance:HUMANA ELIOB: Community [place] [address] MEDIC[facility] PPOPolicy [id number] [place] Number: Repository [address]Vnu: 330 [id number] [phone] () Date:8935-32-20GA[address] [address]MK: 10/08/2017 Secondary RAMSES L [place] Insurance:MEDICAIDPoli ROBERTSDOB: Community cy Number: [id number] Hospital [id number] Repository Date:2017-10-08 10/08/2017 Tertiary NOT GIVENUNK [place] Insurance:SELF PAY [facility] Number: Effective Repository Date:2017-10-08 10/04/2017 RAMSES L Primary RAMSES L [place] [id number] E Insurance:HUMANA ROBERTSDOB: Community [facility] [id number] [place] Number: Repository [address]Mhl: 330 [id number] [phone] () Date:0483-53-03DF[address] [address]KY: 10/04/2017 Secondary RAMSES L [place] Insurance:MEDICAIDPoli ROBERTSDOB: Community cy Number: [id number] Hospital [id number] Repository Date:2017-10-04 10/04/2017 Tertiary NOT GIVENUNK [place] Insurance:SELF PAY [facility] Number: Effective Repository Date:2017-10-04 08/26/2017 RAMSES L Primary RAMSES L [place] [id number] E Insurance:HUMANA ROBERTSDOB: [facility] [id number] [place] Number: Repository [address]Eak: 330 [id number] [phone] () Date:4242-32-08FP [address] [address]WN: 08/26/2017 Secondary RAMSES L [place] Insurance:MEDICAIDPoli ROBERTSDOB: Community cy Number: [id number] Hospital [id number] Repository Date:2017-08-26 08/26/2017 Tertiary NOT GIVENUNK [place] Insurance:SELF PAY [facility] Number: Effective Repository Date:2017-08-26 08/23/2017 RAMSES L Primary RAMSES L Jamar Pomerene ROBERTSDOB: Insurance:HUMANA ROBERTSDOB: [facility] E MEDICARE ADVANTAGE [id number] [facility] 119SHJ[facility] [place] Number: [place]WO[place]OSnow [place], [place] [address]Vpl: 330 [id number] [phone] (HP) Date:Plan Name: 08/23/2017 Secondary RAMSES L Jamar [place] Insurance:MEDICAID ROBERTSB: [facility] [id number] Hospital Number: 4 NONPARIEL Repository [id number] RDFR[facility] Date:Plan Name: [id number] 08/22/2017 RAMSES L Primary RAMSES L [place] [id number] E Insurance:HUMANA ROBERTSDOB: Community [address] [address] MEDIC[facility] PPOPolicy [id number] [address] [place] Number: Repository [address]Dog: 330 [id number] [phone] (HP) Date:2394-37-53SP[address] [address]AJ: 08/22/2017 Secondary RAMSES L [place] Insurance:MEDICAIDPol ROBERTSDOB: [facility] Number: [id number] [facility] [id number] Repository Date:2017-08-22 08/22/2017 Tertiary NOT GIVENUNK [place] Insurance:SELF PAY [facility] Number: Effective Repository Date:2017-08-22 06/24/2017 RAMSES L Primary RAMSES L [facility] ROBERTSDOB: Insurance:HUMANA ROBERTSDOB: [facility] MEDICARE PPOPolicy [id number] [facility] Number: [facility] [id number] [facility] [place] Date: [address]Euz: (HP) 06/24/2017 Secondary RAMSES L [facility] Insurance:[place] ROBERTSDOB: Health System MEDICAIDPolicy Number: [id number] Repository [id number] Date: 06/18/2017 RAMSES L Primary RAMSES L [facility] ROBERTSDOB: Insurance:[facility]: [facility] E MEDICARE PPOPolicy [id number] Peak Hospital Number: [place] [id number]: (330) Date: (HP) 06/18/2017 Secondary RAMSES L [facility] MEDICAIDPolicy Number: [id number] Repository [id number] Date: 06/05/2017 RAMSES L Primary RAMSES L [facility] ROBERTSDOB: Insurance:[facility]ANN[facility]: [facility] MEDICARE PPOPolicy [id number] Number: [place] [id number] [address] Date: [address]Jdy: (HP) 06/05/2017 Secondary RAMSES L [facility] Insurance:[facility]: Health System MEDICAIDPolicy Number: [id number] Repository [id number] Date: 05/30/2017 RAMSES L Primary RAMSES L [facility] ROBERTSDOB: Insurance:[facility]: [facility] E MEDICARE PPOPolicy [id number] Peak Hospital Number: [address] [id number]: (330) Date: (HP) 05/30/2017 Secondary RAMSES L [facility] Insurance:[facility]: Health System MEDICAIDPolicy Number: [id number] Repository [id number] Date: 05/22/2017 RAMSES L Primary RAMSES L [place] [id number] E Insurance:[facility]: Community [address] [address] MEDICARE PPOPolicy [id number] [facility] [address] Number: Repository [id number]: (330) [id number] (HP) Date:2881-68-26[address] [place] [address]XO: 05/22/2017 Secondary RAMSES L [place] Insurance:MEDICAIDPoli ROBERTSDOB: Community cy Number: [id number] Hospital [id number] Repository Date:2017-05-22 05/22/2017 Tertiary NOT GIVENUNK [place] Insurance:SELF PAY [facility] Number: Effective Repository Date:2017-05-22 05/22/2017 RAMSES L Primary RAMSES L [place] [id number] E Insurance:HUMANA ROBERTSDOB: Community [place] [address] MEDICARE PPOPolicy [id number] [facility] [address] Number: Repository [id number]: 330 [id number] (HP) Date:[id number] [address]NL: 05/22/2017 Secondary RAMSES L [place] Insurance:MEDICAIDPol ROBERTSDOB: [facility] cy Number: [id number] Hospital [id number] Repository Date:2017-05-21 05/22/2017 Tertiary NOT GIVENUNK [place] Insurance:SELF PAY [facility] Number: Effective Repository Date:2017-05-21 05/21/2017 RAMSES L Primary RAMSES L [facility] ROBERTSDOB: Insurance:HUMANA LEEANNDOB: Health System E MEDICARE [facility] [id number] Peak Hospital Number: [address] [id number]: (330) Date: (HP) 05/21/2017 Secondary RAMSES L [facility] Insurance:[place] ROBERTSDOB: [facility] Number: [id number] Repository [id number] Date: 05/21/2017 RAMSES L Primary RAMSES L [facility] ROBERTSDOB: Insurance:HUMANA LEEANNDOB: Health System E MEDICARE [facility] [id number] Peak Hospital Number: [address] [id number]: (330) Date: (HP) 05/21/2017 Secondary RAMSES L [facility] Insurance:[facility] Number: [id number] Repository [id number] Date: 05/20/2017 RAMSES L Primary RAMSES L [place] [id number] E Insurance:HUMANA ROBERTSDOB: [facility] MEDICARE [facility] [id number], [place] Number: Repository [address]Wjk: 330 [id number] [phone] (HP) Date:9258-86-10[address] [place] [address]NV: 05/20/2017 Secondary RAMSES L [place] [facility]: [facility] cy Number: [id number] Hospital [id number] Repository Date:2017-05-17 05/20/2017 Tertiary NOT GIVENUNK [place] Insurance:SELF PAY [facility] Number: Effective Repository Date:2017-05-17 05/20/2017 RAMSES L Primary RAMSES L [place] [id number] E Insurance:HUMANA ROBERTSDOB: [facility] MEDICARE [facility] [id number], [place] Number: Repository [address]Sqy: 330 [id number] [phone] Date:2930-08-90DCDOMINIQUE [place] 9725012-46[address]WP: 05/20/2017 Secondary RAMSES L [place] [facility]ID[facility]: [facility] cy Number: [id number] Hospital [id number] Repository Date:2017-05-17 05/20/2017 Tertiary NOT GIVENUNK [place] Insurance:SELF PAY [facility] Number: Effective Repository Date:2017-05-20 05/17/2017 RAMSES L Primary RAMSES L [place] [id number] E Insurance:HUMANA ROBERTSDOB: [facility] MEDICARE [facility] [id number], [place] Number: Repository [phone]: 330 [id number] [phone] (HP) Date:8722-76-58LE[address] [address]GQ: 05/17/2017 Secondary RAMSES L [place] Insurance:MEDICAIDPol ROBERTSDOB: [facility] Number: [id number] Hospital [id number] Repository Date:2017-05-14 05/17/2017 Tertiary NOT GIVENUNK [place] Insurance:SELF PAY [facility] Number: Effective Repository Date:2017-05-14 05/14/2017 RAMSES L Primary RAMSES L [facility] ROBERTSDOB: Insurance:HUMAN ROBERTSDOB: Health System MEDICARE PPOPolicy [id number] Repository [facility] Number: [place] [id number] [address] Date: [address]Jnl: (HP) 05/14/2017 Secondary RAMSES L [facility] MEDICAIDPolicy Number: [id number] Repository [id number] Date: 04/22/2017 RAMSES L Primary RAMSES L [facility] ROBERTSDOB: Insurance:HUMANA ROBERTSDOB: Health System MEDICARE PPOPolicy [id number] Repository [facility] Number: [place] [id number] [address] Date: [address]Cqc: (HP) 04/22/2017 Secondary RAMSES L [facility]ID[facility] Number: [id number] Repository [id number] Date: 04/12/2017 RAMSES L Primary RAMSES L [place] [id number] E Insurance:HUMANA ROB[facility]SDOB[facility] PPOPolicy [id number] [facility] [address] Number: Repository [id number]: 330 [id number] [phone] (HP) Date:7506-60-20LU[address] [address]TZ: 04/12/2017 Secondary RAMSES L [place] Insurance:MEDICAIDPol ROBERTSDOB: [facility] Number: [id number] Hospital [id number] Repository Date:2017-04-12 04/12/2017 Tertiary NOT GIVENUNK [place] Insurance:SELF PAY [facility] Number: Effective Repository Date:2017-04-12 04/11/2017 RAMSES L Primary RAMSES L [place] [id number] E Insurance:HUMANA ROBERTSDOB: [facility] [id number], [place] Number: Repository [address]Psy: 330 [id number] [phone] (HP) Date:8337-81-56DN [address] [address]DG: 04/11/2017 Secondary RAMSES L [place] Insurance:MEDICAIDPoli ROBERTSDOB: [facility] cy Number: [id number] Hospital [id number] Repository Date:2017-03-25 04/11/2017 Tertiary NOT GIVENUNK [place] Insurance:SELF PAY [facility] Number: Effective Repository Date:2017-03-25 04/08/2017 Ramses L Primary Ramses L [place] [id number] E Insurance:HUMANA RobertsDOB: [facility] MEDICARE [facility] [id number] [place] [address], [place] Number: Repository [address]Myi: 330 [id number] [phone] Date:9854-03-73QB [address] [address]AO: 04/08/2017 Secondary Ramses L [place] Insurance:MEDICAIDPoli RobertsDOB: Community cy Number: [id number] Hospital [id number] Repository Date:2017-03-21 04/08/2017 Tertiary NOT GIVENUNK [place] Insurance:SELF PAY [facility] Number: Effective Repository Date:2017-03-21 04/08/2017 Ramses L Primary Ramses L [place] [id number] E Insurance:HUMANA RobertsDOB: [facility] [id number] [place] [address], [place] Number: Repository [id number]: 330 [id number] [phone] (HP) Date:9485-01-60ZT[address] [address]RM: 04/08/2017 Secondary Ramses L [place] Insurance:MEDICAIDPol RobertsDOB: [facility] cy Number: [id number] Hospital [id number] Repository Date:2017-03-21 04/08/2017 Tertiary NOT GIVENUNK [place] Insurance:SELF PAY [facility] Number: Effective Repository Date:2017-04-08 04/04/2017 RAMSES L Primary RAMSES L [facility] ROBERTSDOB: Insurance:HUMANA ROBERTSDOB: Health System MEDICARE [facility] [id number] Repository [facility] Number: [facility] [id number] [place], [place] Date: [address]Zje: () 04/04/2017 Secondary RAMSES L [facility] Insurance:[place] ROBERTSDOB: [facility] MEDICAIDPolicy Number: [id number] Repository [id number] Date: 03/21/2017 Ramses L Primary Ramses L [place] [id number] E Insurance:HUMANA RobertsDOB: [facility] [id number], [place] Number: Repository [address]Llg: 330 [id number] [phone] () Date:5809-74-47RL [address] [address]RT: 03/21/2017 Secondary Ramses L [place] Insurance:MEDICAIDPoli RobertsDOB: [facility] cy Number: [id number] Hospital [id number] Repository Date:2017-03-14 03/21/2017 Tertiary NOT GIVENUNK [place] Insurance:SELF PAY [facility] Number: Effective Repository Date:2017-03-14 03/06/2017 Ramses L Primary Ramses L [place] [id number] E Insurance:HUMANA RobertsDOB: [facility] [id number], [place] Number: Repository [address]Gqi: 330 [id number] [phone] (HP) Date:6888-83-87ZN [address] [address]CD: 03/06/2017 Secondary Ramses L [place] Insurance:MEDICAIDPoli RobertsDOB: Community cy Number: [id number] Hospital [id number] Repository Date:2017-03-06 03/06/2017 Tertiary NOT GIVENUNK [place] Insurance:SELF PAY [facility] Number: Effective Repository Date:2017-03-06 03/01/2017 Ramses L Primary Ramses L [place] [id number] E Insurance:HUMANA LeeannDOB: [facility] MEDICARE [facility] [id number] Number: Repository [address]Ggx: (195) [id number] [phone] Date:5476-81-22[address], [place] [address]DI: 03/01/2017 Secondary Ramses L [place] Insurance:MEDICAIDPoli LeeannDOB: Community cy Number: [id number] Hospital [id number] Repository Date:2017-02-27 03/01/2017 Tertiary NOT GIVENUNK [place] Insurance:SELF PAY [facility] Number: Effective Repository Date:2017-02-27
== END ==
PROVIDERS: Family Provider Family Medicine; PCP Family Medicine; Referring Provider Surgery; Visit Provider Surgery
DX: R93.3 Abnormal findings on diagnostic imaging of other parts of digestive tract (principal)
CPT/HCPCS: 74249

== ENCOUNTER → 2018-02-18 14:14 | Outpatient (CLI) | payer MEDICARE, MEDICAID, SELFPAY ==
--- NOTE | 2018-02-18 14:20 | RAD_ITS ---
STUDY: X-RAY - BILATERAL HIPS WITHOUT PELVIS REASON FOR EXAM: Female, 52 years old. Bilateral hip pain TECHNIQUE: One view of the pelvis, 2 views of the right hip, and 2 views of the left hip were obtained. COMPARISON: None. FINDINGS: Right Hip: No fracture or dislocation. Mild degenerative change. Left Hip: No fracture or dislocation. Mild degenerative change. RAD/Hips B/L min 2 views w/ Pelvis IMPRESSION: No fracture or dislocation of bilateral hips. Mild degenerative changes bilaterally. Electronically Signed: Rupesh Bradshaw, at 15:20 EST Tel , Service support ,
--- OUTSIDE RECORDS SUMMARY | 2018-04-06 19:39 | XMS RPT_ITS ---
:1965 Author Organization OHIP Support Name Relationship Address Phone RIDDHI JONAS Unavailable [address] + [place] [address] D Unavailable Unavailable Unavailable LUIS VITA Unavailable Unavailable + JONAS, RIDDHI Unavailable [address] + [place] [address] D Unavailable Unavailable Unavailable LUIS, VITA Unavailable Unavailable + JONAS, RIDDHI Unavailable [address] + [place] [address] D Unavailable Unavailable Unavailable LUIS, VITA Unavailable Unavailable + JONAS, RIDDHI Unavailable [address] + [place] [address] D Unavailable Unavailable Unavailable LUIS, VITA Unavailable Unavailable + JONAS, RIDDHI Unavailable [address] + [place] [address] D Unavailable Unavailable Unavailable LUIS, VITA Unavailable Unavailable + JONAS, RIDDHI Unavailable [address] + [place] [address] D Unavailable Unavailable Unavailable LUIS, VITA Unavailable Unavailable + JONAS, RIDDHI Unavailable [address] + [place] [address] D Unavailable Unavailable Unavailable LUIS, VITA Unavailable Unavailable + JONAS, RIDDHI Unavailable [address] + [place] [address] D Unavailable Unavailable Unavailable LUIS, VITA Unavailable Unavailable + JONAS, RIDDHI Unavailable [address] + [facility] [address] D Unavailable Unavailable Unavailable LUIS, VITA Unavailable Unavailable + JONASJHONNY GONZALEZA Unavailable [address] + [place] [address] D Unavailable Unavailable Unavailable LUIS, VITA Unavailable Unavailable + JONASJHONNYA Unavailable [address] + [place] [address] D Unavailable Unavailable Unavailable LUIS, VITA Unavailable Unavailable + JONAS RIDDHI Unavailable [address] + [place] [address] D Unavailable Unavailable Unavailable LUIS, VITA Unavailable Unavailable + JONASJHONNYA Unavailable [address] + [place] [address] D Unavailable Unavailable Unavailable LUIS, VITA Unavailable Unavailable + JONASJHONNYA Unavailable [address] + [place] [address] D Unavailable Unavailable Unavailable LUIS, VITA Unavailable Unavailable + JONASJHONNYA Unavailable [address] + [place] [address] D Unavailable Unavailable Unavailable LUIS, VITA Unavailable . + ., [place] . JONASJHONNY GONZALEZA Unavailable [address] + [place] [address] D Unavailable Unavailable Unavailable LUIS, VITA Unavailable . + ., [place] . JONASJHONNY GONZALEZA Unavailable [address] + [place] [address] D Unavailable Unavailable Unavailable LUIS, VITA Unavailable Unavailable + JONASJHONNY GONZALEZA Unavailable [address] + [place] [address] D Unavailable Unavailable Unavailable LUIS, VITA Unavailable Unavailable + JONASJHONNYA Unavailable [address] + [place] [address] D Unavailable Unavailable Unavailable LUIS VITA Unavailable Unavailable + JONAS RIDDHI Unavailable [address] + [place] [address] D Unavailable Unavailable Unavailable LUIS VITA Unavailable Unavailable + MERRY MYERS Unavailable [address] + [address] [place], [place] [phone] NOT GIVEN Unavailable Unavailable Unavailable JONAS, RIDDHI Unavailable [address] + [place] [address] D Unavailable Unavailable Unavailable LUIS, VITA Unavailable Unavailable + JONAS, RIDDHI Unavailable [address] + [place] [address] D Unavailable Unavailable Unavailable LUIS, VITA Unavailable Unavailable + JONAS, RIDDHI Unavailable [address] + [place] [address] D Unavailable Unavailable Unavailable LUIS VITA Unavailable N + [place], [place] FREDO MYERSITH Unavailable [address] + [address] [place] [phone] JONAS, RIDDHI Unavailable [address] + [place] [address] D Unavailable Unavailable Unavailable LUIS, VITA Unavailable N + [place] JONAS, RIDDHI Unavailable [address] + [place] [address] D Unavailable Unavailable Unavailable LUIS, VITA Unavailable N + [place], [place] JONAS, RIDDHI Unavailable [address] + [place] [address] D Unavailable Unavailable Unavailable LUIS, VITA Unavailable N + [place], [place] JONAS, RIDDHI Unavailable [address] + [place] [address] D Unavailable Unavailable Unavailable LUIS, VITA Unavailable N + [place], [place] JONAS, RIDDHI Unavailable [address] + [place] [address] D Unavailable Unavailable Unavailable LUIS, VITA Unavailable N + [place], [place] JONAS, RIDDHI Unavailable [address] + [place] [address] D Unavailable Unavailable Unavailable LUIS, VITA Unavailable N + [place], [place] JONAS, RIDDHI Unavailable [address] + [place] [address] D Unavailable Unavailable Unavailable LUIS, VITA Unavailable N + [place], [place] JONAS, RIDDHI Unavailable [address] + [place] [address] D Unavailable Unavailable Unavailable LUIS, VITA Unavailable N + [place], [place] JONAS, RIDDHI Unavailable [address] + [place] [address] D Unavailable Unavailable Unavailable LUIS, VITA Unavailable Unavailable + JONAS, RIDDHI Unavailable [address] + [place] [address] D Unavailable Unavailable Unavailable LUIS, VITA Unavailable Unavailable + Care Team Providers Name Role Phone SELWYN FARFAN Attending Unavailable SELWYN FARFAN Referring Unavailable ALI, NOAMAN Attending Unavailable ROBOTHAM, CLARISSA L Referring Unavailable ALI, NOAMAN Attending Unavailable ALI, NOAMAN Referring Unavailable ALI, NOAMAN Referring Unavailable ALI, NOAMAN Referring Unavailable ALI, NOAMAN Admitting Unavailable ALI, NOAMAN Attending Unavailable ALI, NOAMAN Attending Unavailable ALI, NOAMAN Referring Unavailable ALI, NOAMAN Referring Unavailable ALI, NOAMAN Referring Unavailable SELWYN FARFAN Attending Unavailable SELWYN FARFAN Referring Unavailable SELWYN FARFAN Referring Unavailable TEGAN, SAMEH RIZKAL Referring Unavailable TEGAN, SAMEH RIZKAL Referring Unavailable DR JACKY HENSLEY Admitting Unavailable DR JACKY HENSLEY Attending Unavailable DR JACKY HENSLEY Primary Care Unavailable GEE LEON MD Referring Unavailable GEE LEON MD Consulting Unavailable PROVIDER, UNKNOWN Consulting Unavailable CRYSTAL LUJAN DO Admitting Unavailable GODCRYSTAL NIELSON DO Attending Unavailable CRYSTAL LUJAN DO Primary Care Unavailable GEE LEON MD Consulting Unavailable GEE LEON MD Referring Unavailable PROVIDER, UNKNOWN Consulting Unavailable Robotham, Clarissa Attending Unavailable Robotham, Clarissa Referring Unavailable [place] Primary [facility] Unavailable Robotham, Clarissa Attending Unavailable Robotham, Clarissa Referring Unavailable [place] Unavailable Robotham, Clarissa Consulting Unavailable Imelda Hernandez Attending Unavailable [place], [place] Referring [facility]available [facility] Unavailable Robotham, Clarissa Attending Unavailable Robotham, Clarissa Referring Unavailable [place] Unavailable Robotham, Clarissa Attending Unavailable Carolyn, Sunger Referring [facility] Unavailable Shwetha Bailey Attending Unavailable [facility], [facility] Primary [facility] Unavailable Jcarlos Greenwood Attending Unavailable Robotham, Clarissa Attending Unavailable Robotham, Clarissa Referring Unavailable [place], [facility] Primary [facility] Unavailable Robotham, Clarissa Attending [facility]available [facility] Primary Care Unavailable Robotham, Clarissa Referring Unavailable Robotham, Clarissa Attending Unavailable [place], Christopher Referring [facility]available [facility] Primary Care Unavailable Robotham, Clarissa Attending Unavailable [facility] Primary Care Unavailable Robotham, Clarissa Referring Unavailable Robotham, Clarissa Attending Unavailable Robotham, Clarissa Referring Unavailable [place], [facility] Primary [facility] Unavailable Robotham, Clarissa Consulting Unavailable [place], [facility] Primary Care Unavailable Debi Amaya Attending Unavailable [facility], [facility] Primary Care Unavailable Ubaldo Dhillon Attending Unavailable [facility] Primary Care Unavailable Tegan, Sameh Attending Unavailable Tegan, Sameh Referring Unavailable [facility], [facility] Primary Care Unavailable Crystal Mcdowell Attending Unavailable [facility], [facility] Primary Care Unavailable Kaushal Mendoza Attending Unavailable Tegan, Sameh Attending Unavailable [facility], [facility] Primary Care Unavailable Tegan, Sameh Attending Unavailable [facility], [facility] Primary Care Unavailable Tegan, Sameh Referring Unavailable Imelda Hernandez Attending Unavailable Carolyn, Gee Referring Unavailable Tegan, Sameh Attending Unavailable Tegan, Sameh Referring Unavailable [place], [facility] Primary Care Unavailable Imelda Hernandez Attending Unavailable [place], Christopher Referring Unavailable Robotham, Clarissa Attending Unavailable Ran[place], Christopher Referring Unavailable Robotham, Clarissa Attending Unavailable Robotham, Clarissa Referring Unavailable Ran[place], Christopher Primary Care Unavailable Ran[facility], Christopher Primary Care Unavailable Jcarlos Price Admitting Unavailable KitAutumn acevedo Attending Unavailable Jcarlos Price Attending Unavailable [place], Christopher Primary Care Unavailable Jcarlos Price Admitting Unavailable Autumn Gorman Attending Unavailable [place], Christopher Primary Care Unavailable Autumn Gorman Consulting Unavailable [place], Christopher Primary Care Unavailable DanielsVirgil calero Attending Unavailable Robotham, Clarissa Attending Unavailable Robotham, Clarissa Referring Unavailable [place], Christopher Primary Care Unavailable Robotham, Clarissa Attending Unavailable Robotham, Clarissa Referring Unavailable [place], Christopher Primary Care Unavailable Robotham, Clarissa Attending Unavailable Samuel Keys Attending Unavailable Autumn Gorman Referring Unavailable Basali, Ayman Attending Unavailable Basali, Ayman Referring Unavailable [place], Christopher Primary Care Unavailable SELWYN FARFAN Attending Unavailable SELWYN FARFAN Referring Unavailable SELWYN FARFAN Attending Unavailable SELWYN FARFAN Referring Unavailable RANNEY, CHRISTOPHER B Primary Care Unavailable SELWYN FARFAN Attending Unavailable RANNEY, CHRISTOPHER B Primary Care Unavailable RANNEY, CHRISTOPHER B Primary Care Unavailable BRITTNY NOAMAN S Attending Unavailable Johan CASAS Referring Unavailable ALI, NOAMAN S Attending Unavailable ALI, NOAMAN S Referring Unavailable RANNEY, CHRISTOPHER B Primary Care Unavailable ALI, NOAMAN S Admitting Unavailable ALI, NOAMAN S Attending Unavailable RANNEY, CHRISTOPHER B Primary Care Unavailable ALI, NOAMAN S Referring Unavailable RANNEY, CHRISTOPHER B Primary Care Unavailable ALI, NOAMAN S Referring Unavailable RANNEY, CHRISTOPHER B Primary Care Unavailable ALI, NOAMAN S Referring Unavailable RANNEY, CHRISTOPHER B Primary Care Unavailable ALI, NOAMAN S Attending Unavailable [facility] Referring Unavailable RANNEY, CHRISTOPHER B Primary Care Unavailable PROBLEMS PROBLEMS DATE TYPE CONDITION / CODE ATTENDING STATUS SOURCE 02/18/2018 Unknown M25.552 - Pain in Basali, Ayman Active [place] left hip / Community M25.552(ICD-10) Hospital Repository 02/18/2018 Unknown M25.551 - Pain in Basali, Ayman Active [facility] [place] right hip / Community M25.551(ICD-10) Hospital Repository 01/17/2018 Unknown R10.9 - Unspecified Robotham, Active [facility] abdominal pain / [place] Community R10.9(ICD-10) Hospital Repository 02/04/2018 Unknown R07.9 - Chest pain, Ludmila, Samuel Active [facility] unspecified / Community R07.9(ICD-10) Hospital Repository 01/28/2018 Unknown K22.8 - Other Robotham, Active [facility] specified diseases [facility] of esophagus / Hospital K22.8(ICD-10) Repository 01/28/2018 Unknown K21.9 - Robotham, Active [facility] Gastro-esophageal [facility] reflux disease Hospital without esophagitis Repository / K21.9(ICD-10) 01/28/2018 Unknown R10.13 - Epigastric Robotham, Active [facility] pain / [place] Community R10.13(ICD-10) Hospital Repository 12/27/2017 Unknown M54.14 - [facility] Active [facility] Radiculopathy, [facility] thoracic region / Hospital M54.14(ICD-10) Repository 12/25/2017 Unknown R55 - Syncope and Imelda Hernandez Active [facility] [place] collapse / Community R55(ICD-10) Hospital Repository 12/25/2017 Unknown Z95.0 - [facility] Imelda Active [facility] cardiac pacemaker / Community Z95.0(ICD-10) Hospital Repository 12/25/2017 Unknown I49.5 - Sick sinus Mary Imelda Active [facility] syndrome / Community I49.5(ICD-10) Hospital Repository 12/16/2017 Unknown M54.2 - Cervicalgia [facility] Active [facility] / M54.2(ICD-10) Community Hospital Repository 11/21/2017 Active Syncope and collapse NA Active [place] / R55(ICD-10) [facility] [place] Repository 10/29/2017 Unknown F11.20 - Opioid [facility] Active [facility] dependence, Community uncomplicated / Hospital F11.20(ICD-10) Repository 10/29/2017 Unknown M54.6 - Pain in [facility] Active [facility] [place] thoracic spine / Community M54.6(ICD-10) Hospital Repository 05/30/2017 Active Other acute ALI, NOAMAN Active [place] appendicitis / Clinic Other K35.89(ICD-10) [place] Repository 05/21/2017 Active Encounter for other NA Active [facility] [facility] preprocedural Clinic Other examination / [place] Z01.818(ICD-10) Repository 05/21/2017 Active Unknown / NA Active [facility] UNK(Unknown) Clinic Other [place] Repository 05/24/2017 Unknown K62.5 - Hemorrhage Robotham, Active [facility] of anus and rectum / Clarissa [facility] K62.5(ICD-10) Hospital Repository 04/22/2017 Active Benign carcinoid ALI, 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 Clinic Other / D3A.092(ICD-10) [place] Repository 04/04/2017 Active Encounter for NAHEED, Active [place] preprocedural SELWYN E Clinic Other cardiovascular [place] examination / Repository Z01.810(ICD-10) 04/04/2017 Active Essential (primary) NAHEED, Active [place] [facility] hypertension / SELWYN E Clinic Other I10(ICD-10) [place] Repository 04/04/2017 Admitting Unknown / NAHEED, Active [facility] diagnosis UNK(Unknown) [facility] Repository PROCEDURES PROCEDURES No Procedure Records FoundRESULTS RESULTS 12 LEAD ELECTROCARDIOGRAM Observed: 03/19/2018 Status: F Source: [place] 3:33 PM [facility] [place] Cardiovascular Services [address] [place] [address] 12 Lead EKG 03/18/18 1343 MR#: [id number] Acct: [id number] Name: RAMSES BRADSHAW Rep #: [id number] : 1965 52 From: Jcarlos Mendoza MD Attending Dr: Status: DEP ER Ordering Dr: Helder,Zhou P. Date: 03/18/18 Location: ED Sex: F C Admitted: Test Reason : CP Blood Pressure : / mmHG Vent. Rate : 077 BPM Atrial Rate : 077 BPM P-R Int : 150 ms QRS Dur : 088 ms QT Int : 394 ms P-R-T Axes : 031 041 057 degrees QTc Int : 445 ms Normal sinus rhythm Possible Inferior infarct , age undetermined Cannot rule out Anterior infarct , age undetermined Abnormal ECG Confirmed by AIDEN GAUTAM, JCARLOS ([id number]), slot editor KIM KIM ([id number]) on 03/19/2018 3:33:20 PM Referred By: JW Confirmed By:JCARLOS MENDOZA MD 03/19/18 1533 Date Jcarlos Mendoza MD CC: Gee Leon MD; ED PHYSICIAN PROVIDER; Jcarlos Greenwood MD Signed 12 LEAD ELECTROCARDIOGRAM Observed: 03/19/2018 Status: F Source: [place] 3:25 PM [facility] Cardiovascular Services [address] [place] [address] 12 Lead EKG 03/17/18 1644 MR#: [id number] Acct: [id number] Name: RAMSES BRADSHAW Rep #: [id number] : 1965 52 From: Jcarlos Mendoza MD Attending Dr: Status: DEP ER Ordering Dr: Shwetha Bailey MD Date: 03/17/18 Location: ED Sex: F C Admitted: Test Reason : CP Blood Pressure : / mmHG Vent. Rate : 098 BPM Atrial Rate : 098 BPM P-R Int : 142 ms QRS Dur : 084 ms QT Int : 360 ms P-R-T Axes : 046 054 047 degrees QTc Int : 459 ms Normal sinus rhythm Normal ECG Confirmed by AIDEN GAUTAM, JCARLOS ([id number]), slot editor KIM KIM ([id number]) on 03/19/2018 3:25:03 PM Referred By: LELIA Confirmed By:JCARLOS MENDOZA MD 03/19/18 1525 Date Jcarlos Mendoza MD CC: Gee Leon MD; Shwetha Bailey MD Signed 12 LEAD ELECTROCARDIOGRAM Observed: 03/19/2018 Status: F Source: [place] 3:24 PM [facility] Cardiovascular Services [address] [place] [address] 12 Lead EKG 03/17/18 1858 MR#: [id number] Acct: [id number] Name: RAMSES BRADSHAW Rep #: [id number] : 1965 52 From: Jcarlos Mendoza MD Attending Dr: Status: DEP ER Ordering Dr: Shwetha Bailey MD Date: 03/17/18 Location: ED Sex: F C Admitted: Test Reason : SYNCOPE Blood Pressure : / mmHG Vent. Rate : 087 BPM Atrial Rate : 087 BPM P-R Int : 156 ms QRS Dur : 090 ms QT Int : 372 ms P-R-T Axes : 047 044 043 degrees QTc Int : 447 ms Normal sinus rhythm Possible Inferior infarct , age undetermined Abnormal ECG Confirmed by AIDEN GAUTAM, JCARLOS ([id number]), slot editor KIM KIM (56) on 03/19/2018 3:24:46 PM Referred By: Confirmed By:JCARLOS MENDOZA MD 03/19/18 1524 Date Jcarlos Mendoza MD CC: Gee Leon MD; Shwetha Bailey MD Signed EMERGENCY DEPARTMENT Observed: 03/18/2018 Status: F Source: [place] SUMMARY 3:10 PM [facility] Medical Records Department [address] [place] [address] Emergency Department Summary 03/18/18 1459 MR#: [id number] Acct: [id number] Name: RAMSES BRADSHAW Rep #: [id number] : 1965 52 From: Jcarlos Greenwood MD PCP: Gee Leon MD Status: DEP ER ADDENDUM by Jcarlos Greenwood MD on 03/18/18 at 1510 I talked to Ramses Madera on the phone, informed her that after she left I found out that she has leukocytosis and that she needs to follow-up with her PCP, she again was quite angry for not getting opiate analgesics. But I talked to her for about 5 minutes trying to explain the importance about following up with her primary care physician. She has any other symptoms we are more than happy to see her in the emergency department. 03/18/18 1510 Date Jcarlos Greenwood MD cc: Gee Leon MD * Signed - ER Visit Summary Date of Service: 03/18/18 Chief Complaint: Chest pain History of Present Illness: The patient is a 52 F with history of syncope, apparently she had 3 syncopal episodes yesterday. She developed chest pain at the same time. She was examined in the emergency department but eloped prior to full evaluation. She is returning today with chest pain complaint, left arm pain and hip pain. She ambulated to the bed. Patient denies any head injury, the syncopal episodes were witnessed. She has no fever or chills. She has no abdominal pain. Physical Examination: Not appear in acute distress. She is quite conversive, laughing and told me I was too young to be a doctor. Moist mucous membranes, no obvious facial deformity No C-spine tenderness supple neck. Regular rate and rhythm without any obvious murmurs Clear lungs bilaterally speaking in full sentences without any obvious respiratory distress Abdomen soft and nontender no guarding or rebound Moves all extremities without any difficulty she has no pain to log rolling the left or right hip. She has some buttock tenderness. She is ambulating. She is complaining of left arm pain with paresthesias, she has normal flexion extension and normal strength. No vascular compromise. Skin does not show any obvious rashes or lesions, no trauma. Alert oriented 3 with no gross focal deficit Emergency Department Course and Treatment: Was called to the room for pain control apparently she requested pain medications and I gave her Tylenol she was quite angry, however I have looked in the prior history and she has an extensive opiate addiction, including overdose. I do not believe it is appropriate to give her opiate analgesics for non-verifiable pain. She eloped from the emergency department and looking at her lab work I do notice she has some leukocytosis, I saw this after she left. Reviewing the chart she does have some chronic leukocytosis. I will attempt to call her so she can get an outpatient workup. Disposition: Eloped prior to full examination Impression: Chest pain Hip pain Left arm pain This note was generated with [employer] dictation software. It may contain incorrect words, spelling, and punctuation that were not noted in review of the chart prior to signing ED Disposition - Plan for ED Patient: Chief Complaint: Chest Pain Referrals: Michael Leon MD [Primary Care Provider] - What to do if you have Problems For any increased pain, shortness of breath, bleeding, nausea or vomiting, chest pain, or any unexpected problems, contact your Primary Care Provider. Call [facility] ([phone]) or report to the closest Emergency Room. Call 911 if necessary. 03/18/18 1505 <Electronically signed by Jcarlos Greenwood MD> Date Jcarlos Greenwood MD Cosigner Signature (If Indicated): Date CC: Gee Leon MD CBC W/DIFF, AUTOMATED Collected: 03/18/2018 Status: F Source: [place] 1:47 PM [facility] [place] TYPE CODE TESTS RESULT OUT OF RANGE REFERENCE UNITS LAB L100.1000 4.4-11.0 K/mm3 High WBC 22.2 LAB L100.1200 4.2-5.4 M/mm3 Normal RBC 4.91 LAB L100.1300 12.0-15.0 g/dl High HGB 15.3 LAB L100.1400 37-47 % Normal HCT 45.5 LAB L100.1500 81-99 fL Normal MCV 92.7 LAB L100.1600 27.0-32.0 pg Normal MCH 31.2 LAB L100.1700 32-36 g/gl Normal MCHC 33.6 LAB L100.1810 11.6-14.6 % Normal RDW CV 13.3 LAB L100.1820 35.1-43.9 fl High RDW SD 44.9 LAB L100.1900 150-450 K/mm3 Normal PLT 253 LAB L100.2000 6.2-12.0 fl Normal MPV 9.5 LAB L100.2100 47-70 % Normal NEUT% 69.8 LAB L100.2200 19-41 % Normal LY% 21.6 LAB L100.2300 0-10 % Normal MONO% 6.5 LAB L100.2400 0-5 % Normal EO% 1.1 LAB L100.2500 0-1 % Normal BASO% 0.2 LAB L100.2550 0.0-0.9 % Normal IM GRAN % 0.800 Result Comment: IG% - Immature Granulocytes (promyelocytes, myelocytes and metamyelocytes) > 1% indicates that a LEFT SHIFT is Present. LAB L100.2620 2.0-7.7 X10 3/uL High Absolute Neut 15.5 LAB L100.2720 0.83-4.51 X10 3/ul High Absolute Lymph 4.79 Performed By: #### L100.0100 #### [facility] [address] [place], [place], [id number] BASIC METABOLIC Collected: 03/18/2018 Status: F Source: [place] PROFILE (BMP) 1:47 PM [facility] [place] TYPE CODE TESTS RESULT OUT OF RANGE REFERENCE UNITS LAB L501.0100 74-106 mg/dL Normal GLU 103 Result Comment: Fasting Glucose result from 100 to 125 mg/dL suggests IMPAIRED HOMEOSTASIS per A.D.A. criteria. Please note revised GLUCOSE reference range effective 2017. LAB L501.1000 7-18 mg/dL High BUN 24 LAB L501.1100 0.55-1.02 mg/dL High CREAT,SERUM 1.27 Result Comment: The validity of the calculated GFR AND GFRAA in patients over 70 years has not been determined. Clinical correlation is essential. LAB L501.1110 >60 mL/min Low EST GFR 47 Result Comment: Non- GFR Calc LAB L501.1115 >60 mL/min Low EST GFR - AA 57 Result Comment: GFR Calc LAB L501.1255 ml/min Normal Estimated CRCL 40.98 LAB L501.1300 10-20 RATIO Normal BUN/CRE 18.9 LAB L501.2200 8.5-10 mg/dL Normal .1 CA 9.4 LAB L501.5300 136-14 mmol/L Normal 5 NA 141 LAB L501.5600 3.5-5. mmol/L Normal 1 K 3.6 LAB L501.5900 98-107 mmol/L High CL 108 LAB L501.6100 21.0-3 mmol/L Normal 2.0 CO2 22.0 LAB L501.6200 5-15 Normal GAP 11 Performed By: #### L500.2500, L501.4010 #### [facility] [address] [place], [address] TROPONIN-I Collected: 03/18/2018 Status: F Source: [place] 1:47 PM [facility] [place] [facility] TYPE CODE TESTS RESULT OUT OF RANGE REFERENCE UNITS LAB L501.4010 <0.045 ng/mL Normal < 0.015 TROPONIN-I Result Comment: TROPONIN-I EXPECTED VALUES <0.045 Negative 0.045 - 0.590 Consistent with Cardiac Damage > OR = 0.600 Critical Value Not every elevated troponin is indicative of NC. These values should be used with clinical judgement in examining the patient's clinical picture for diagnosis. To establish a diagnosis of NC versus myocardial injury, there must be a demonstrated rise and/or fall in the troponin values, in addition to ischemic symptoms, EKG changes, new regional wall motion abnormality, and/or angiographical evidence. PLEASE NOTE: REFERENCE RANGES EDITED 17 Performed By: #### L500.2500, L501.4010 #### [facility] [address] [place], [address] CHEST 1 VIEW Observed: 03/18/2018 Status: F Source: [place] (PORTABLE) 1:41 PM [facility] [place] [facility] Imaging Services [address] [place] [address] Chest 1 View (Portable) MR#: [id number] Acct: [id number] Name: RAMSES BRADSHAW Anne Rep #: [id number] : 1965 F 52 From: Ming Roberts MD PCP: Gee Leon MD Status: REG ER Study: Chest 1 View (Portable) Date of Exam: 03/18/18 Exam# [id number] Ordering Dr: Jcarlos Greenwood MD STUDY: X-RAY CHEST REASON FOR EXAM: Female, 52 years old. Chest pain since yesterday. TECHNIQUE: Single AP portable view of the chest. COMPARISON: Comparison is made with prior study dated January 13, 2018. FINDINGS: EKG electrodes are seen. The lungs are clear and expanded. There is no demonstrated pleural abnormality. Normal size heart. A left-sided dual-chamber pacemaker is seen. Normal mediastinum and archana. Normal visualized pulmonary arteries. Normal visualized aortic arch and descending thoracic aorta. Normal visualized thoracic spine. Normal visualized ribs, clavicles, and shoulders. There is no demonstrated abnormality of the visualized soft tissue structures of the upper abdomen. RAD/Chest 1 View (Portable) IMPRESSION: Normal x-ray examination of the chest. Electronically Signed: Ming Roberts MD at 14:32 EST Tel [phone], Service support , CC: Gee Leon MD; Jcarlos Greenwood MD Financial Reserve Clerk: Signed EMERGENCY DEPARTMENT Observed: 03/18/2018 Status: F Source: [place] SUMMARY 12:59 AM [facility] Medical Records Department [address] [place] [address] Emergency Department Summary 03/17/181958 MR#: [id number] Acct: [id number] Name: RAMSES BRADSHAW Rep #: [id number] : 1965 52 From: Shwetha Bailey MD PCP: Gee Leon MD Status: DEP ER - ER Visit Summary Date of Service: 03/17/18 Chief Complaint: Syncopal episode and chest pain History of Present Illness: The patient is a 52 F who presents for a syncopal episode and chest pain. Patient states she started having sharp chest pains midsternal that shot into her back about 30 minutes prior to having a syncopal episode. Patient states she hit her head. She is still complaining of the shooting chest pains. She has had prior episodes of syncope. She denies fever, shortness of breath, cough, abdominal pain but does state she has nausea and a headache. 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 Patient is on buprenorphine and has 2 patches on at this time. She states she is a former smoker and does not drink alcohol. Physical Examination: Vital signs: afebrile, hemodynamically stable, no hypoxia on room air General: well nourished, well developed, in no distress Skin: warm, dry, no rash, no pallor HEENT: normocephalic and atraumatic no tenderness, contusions, hematomas, abrasions or lacerations noted to the scalp; PERRL, EOMI, moist mucous membranes no maxillofacial trauma Cardiovascular: regular rate and rhythm without murmurs, no peripheral edema, 2+ pulses all distal extremities Respiratory: No increased work of breathing, lungs are clear to auscultation bilaterally, no rales, rhonchi or wheezing Abdominal: Abdomen is soft, nontender with normoactive bowel sounds, no guarding or rebound, no masses MSK: Moves all extremities, no deformities, normal strength Neuro: Awake and alert, oriented 4. No facial droop, sensation and motor function intact and symmetric, normal gait Test Results: Abnormal Lab Results WBC 19.9 H RBC 4.77 Hgb 14.8 WBC RBC Hgb Hct MCV MCH MCHC RDW RDW Differential Plt Count MPV Immature Gran % (Auto) Neut % (Auto) Lymph % (Auto) Nicholas % (Auto) Medications Given Discontinued Medications Sodium Chloride () 1,000 mls @ 1,000 mls/hr IV .Q1H ONE Stop: 03/17/18 19:45 Nitroglycerin (Nitrostat) 0.4 mg SUBLINGUAL Q5M TOÑO Stop: 03/17/18 19:11 Ondansetron HCl (Zofran) 4 mg IV X1 ONE Stop: 03/17/18 18:47 Emergency Department Course and Treatment: EKG was performed that showed a sinus rhythm with no ischemia or ectopy. Chest pain workup was initiated, and patient states she cannot have aspirin due to her stomach surgery. She did not want nitroglycerin as she states it gives her an instant migraine. I told her because she has the buprenorphine patches on that it would be unwise to give her opiate pain medications, as the buprenorphine will work against them or there could also still be the chance of overdose with multiple opiate sources. Patient became very irate that I would not give her opiates and threatened to leave. I encouraged patient to stay for her workup since she is having active chest pain, however she stated she still wanted to leave. She began ripping the IV out of her arm and eventually was talked into letting us remove it properly. I encouraged patient not to leave since she has a history of cardiac issues and also states she hit her head and has not yet received a workup for her heart or for the head injury. Patient was adamant that she was leaving and began verbally abusing staff and using profane language. Patient chose to leave AGAINST MEDICAL ADVICE. Prior to her leaving the room, she began crawling across the ground under the curtain and stated that she fell, however she was witnessed throwing herself to the ground. Patient then stated she would stay for the workup this time. Workup was reinitiated, and patient again became very irate for an unknown reason and stated she was leaving again. She left AGAINST MEDICAL ADVICE and ambulated without difficulty out the door. She did not wait to allow us to formally have her sign AMA paperwork. Treatment Plan: [] Disposition: [] Impression: Syncopal episode, chest pain, left AMA 20:00 -patient was found laying outside the hospital, and was brought in by wheelchair. When patient found out she would not be taken immediately to a room because the rooms were full, patient stood up and ambulated without difficulty and began verbally abusing staff again stating that she was leaving. Patient walked out the front door and got into a van, leaving the hospital grounds. This note was generated with [employer] dictation software. It may contain incorrect words, spelling, and punctuation that were not noted in review of the chart prior to signing ED Disposition - Plan for ED Patient: Disposition: Against Medical Advice Chief Complaint: Syncope Referrals: Michale Leon MD [Primary Care Provider] - What to do if you have Problems For any increased pain, shortness of breath, bleeding, nausea or vomiting, chest pain, or any unexpected problems, contact your Primary Care Provider. Call [facility] ([phone]) or report to the closest Emergency Room. Call 911 if necessary. 03/18/18 0059 <Electronically signed by Shwetha Bailey MD> Date [facility] (If Indicated): Date CC: Gee Leon MD BEDSIDE GLUCOSE Collected: 03/17/2018 Status: F Source: [place] 6:20 PM [facility] TYPE CODE TESTS RESULT OUT OF RANGE REFERENCE UNITS LAB L501.080 70-110 mg/dL Normal BEDSIDE GLU 92 Result Comment: MANAGEMENT OF PATIENT CARE PER NURSING PROTOCOL Performed By: #### L501.080 #### [facility] [place] [address] BASIC METABOLIC Collected: 03/17/2018 Status: F Source: [place] PROFILE (BMP) 4:56 PM [facility] TYPE CODE TESTS RESULT OUT OF RANGE REFERENCE UNITS LAB L501.0100 74-106 mg/dL Normal GLU 102 Result Comment: Fasting Glucose result from 100 to 125 mg/dL suggests IMPAIRED HOMEOSTASIS per A.D.A. criteria. Please note revised GLUCOSE reference range effective 2017. LAB L501.1000 7-18 mg/dL High BUN 22 LAB L501.1100 0.55-1.02 mg/dL High CREAT,SERUM 1.12 Result Comment: The validity of the calculated GFR AND GFRAA in patients over 70 years has not been determined. Clinical correlation is essential. LAB L501.1110 >60 mL/min Low EST GFR 54 Result Comment: Non- GFR Calc LAB L501.1115 >60 mL/min Normal EST GFR - AA 66 Result Comment: GFR Calc LAB L501.1255 ml/min Normal Estimated CRCL 46.47 LAB L501.1300 10-20 RATIO Normal BUN/CRE 19.6 LAB L501.2200 8.5-10 mg/dL Normal .1 CA 9.0 LAB L501.5300 136-14 mmol/L Normal 5 NA 143 LAB L501.5600 3.5-5. mmol/L Normal 1 K 3.7 LAB L501.5900 98-107 mmol/L High CL 111 LAB L501.6100 21.0-3 mmol/L Normal 2.0 CO2 22.0 LAB L501.6200 5-15 Normal GAP 10 Performed By: #### L500.2500, L501.4010 #### [facility] [address] [place], [place], [address] TROPONIN-I Collected: 03/17/2018 Status: F Source: [place] 4:56 PM [facility] TYPE CODE TESTS RESULT OUT OF RANGE REFERENCE UNITS LAB L501.4010 <0.045 ng/mL Normal < 0.015 TROPONIN-I Result Comment: TROPONIN-I EXPECTED VALUES <0.045 Negative 0.045 - 0.590 Consistent with Cardiac Damage > OR = 0.600 Critical Value Not every elevated troponin is indicative of NC. These values should be used with clinical judgement in examining the patient's clinical picture for diagnosis. To establish a diagnosis of NC versus myocardial injury, there must be a demonstrated rise and/or fall in the troponin values, in addition to ischemic symptoms, EKG changes, new regional wall motion abnormality, and/or angiographical evidence. PLEASE NOTE: REFERENCE RANGES EDITED 17 Performed By: #### L500.2500, L501.4010 #### [facility] [address] [facility] [place], [address] CBC W/DIFF, AUTOMATED Collected: 03/17/2018 Status: F Source: [place] 4:56 [facility] REPOS[facility] TYPE CODE TESTS RESULT OUT OF RANGE REFERENCE UNITS LAB L100.1000 4.4-11.0 K/mm3 High WBC 19.9 LAB L100.1200 4.2-5.4 M/mm3 Normal RBC 4.77 LAB L100.1300 12.0-15.0 g/dl Normal HGB 14.8 LAB L100.1400 37-47 % Normal HCT 44.2 LAB L100.1500 81-99 fL Normal MCV 92.7 LAB L100.1600 27.0-32.0 pg Normal MCH 31.0 LAB L100.1700 32-36 g/gl Normal MCHC 33.5 LAB L100.1810 11.6-14.6 % Normal RDW CV 13.4 LAB L100.1820 35.1-43.9 fl High RDW SD 45.0 LAB L100.1900 150-450 K/mm3 Normal PLT 233 LAB L100.2000 6.2-12.0 fl Normal MPV 10.2 LAB L100.2100 47-70 % Normal NEUT% 64.6 LAB L100.2200 19-41 % Normal LY% 27.4 LAB L100.2300 0-10 % Normal MONO% 6.2 LAB L100.2400 0-5 % Normal EO% 1.2 LAB L100.2500 0-1 % Normal BASO% 0.2 LAB L100.2550 0.0-0.9 % Normal IM GRAN % 0.400 Result Comment: IG% - Immature Granulocytes (promyelocytes, myelocytes and metamyelocytes) > 1% indicates that a LEFT SHIFT is Present. LAB L100.2620 2.0-7.7 X10 3/uL High Absolute Neut 12.9 LAB L100.2720 0.83-4.51 X10 3/ul High Absolute Lymph 5.46 LAB L100.4500 Normal SMEAR COMMENT SCANNED Result Comment: LYMPHOCYTOSIS NOTED Performed By: #### L100.0100 #### [facility] [place], [place], [address] PROTHROMBIN TIME W/INR Collected: 03/17/2018 Status: F Source: [place] 4:56 PM [facility] TYPE CODE TESTS RESULT OUT OF RANGE REFERENCE UNITS LAB L300.4150 11.7-14.9 SECONDS Normal PROTIME 12.7 LAB L300.4200 Normal INR 1.0 Performed By: #### L300.3900, L300.4310 #### [facility] [address] [place], [address] PARTIAL THROMBOPLAST Collected: 03/17/2018 Status: F Source: [place] TIME 4:56 PM [facility] TYPE CODE TESTS RESULT OUT OF RANGE REFERENCE UNITS LAB L300.4310 24.1-36.2 Seconds Normal PTT 29.1 Performed By: #### L300.3900, L300.4310 #### [facility] [address] [place], [address] HIPS B/L MIN 2 Observed: 02/18/2018 Status: F Source: [place] VIEWS W/ PELVIS 2:20 PM [facility] Imaging Services [address] [place] [address] Hips B/L min 2 views w/ Pelvis MR#: [id number] Acct: [id number] Name: RAMSES BRADSHAW Rep #: [id number] : 1965 F 52 From: Rupesh Bradshaw MD PCP: Gee Leon MD Status: REG CLI Study: Hips B/L min 2 views w/ Pelvis Date of Exam: 02/18/18 Exam# [id number] Ordering Dr: Lorenzo Cartagena MD STUDY: X-RAY [...] CC: Lorenzo Cartagena MD; Gee Leon MD Financial Reserve Clerk: Signed UPPER GI/W SMALL Observed: 02/10/2018 Status: F Source: [place] BOWEL 9:11 AM [facility] Imaging Services [address] [place] [address] Upper GI/w Small Bowel MR#: [id number] Acct: [id number] Name: RAMSES BRADSHAW Rep #: [id number] : 1965 F 52 From: Ming Roberts MD PCP: Gee Leon MD Status: REG CLI Study: Upper GI/w Small Bowel Date of Exam: 02/10/18 Exam# [id number] Ordering Dr: Clarissa Casas MD STUDY: AIR-CONTRAST UPPER GI SERIES [...] examination was performed. COMPARISON: None. 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 The gas pattern [...] Ming Roberts MD at 10:12 EST Tel [phone], Service support , CC: Gee Leon MD; Clarissa Casas MD Financial Reserve Clerk: Signed ABDOMEN/PELVIS WITH Observed: 01/17/2018 Status: F Source: [place] CONTRAST 1:25 PM [facility] Imaging Services [address] [place] [address] Abdomen/Pelvis WITH Contrast MR#: [id number] Acct: [id number] Name: RAMSES BRADSHAW Rep #: [id number] : 1965 F 52 From: Abimael Simon MD PCP: Gee Leon MD Status: REG CLI Study: Abdomen/Pelvis WITH Contrast Date of Exam: 01/17/18 Exam# [id number] Ordering Dr: Clarissa Casas MD STUDY: CT [...] CC: Gee Leon MD; Clarissa Casas MD Financial Reserve Clerk: Signed 12 LEAD ELECTROCARDIOGRAM Observed: 01/16/2018 Status: F Source: [place] 4:00 PM [facility] Cardiovascular Services [address] [place] [address] 12 Lead EKG 01/14/18427 MR#: [id number] Acct: [id number] Name: RAMSES BRADSHAW Rep #: [id number] : 1965 52 From: Samuel Keys MD Attending Dr: Autumn Gorman MD Status: DIS JOSUE Ordering Dr: Jcarlos Price MD Date: 01/13/18 Location: [facility] Sex: F C Admitted: 01/13/18 Test Reason [...] COMPARISON REQUIRED, DATA IS UNCONFIRMED Confirmed by LUDMILA GAUTAM, SAMUEL ([id number]), slot editor KIM KIM ([id number]) on 01/16/2018 4:00:47 PM Referred By: SANDRA Confirmed By:SAMUEL KEYS MD 01/16/18 1600 Date Samuel Keys MD CC: Gee Leon MD; Autumn Gorman MD; Jcarlos rPice MD Signed 12 LEAD ELECTROCARDIOGRAM Observed: 01/16/2018 Status: F Source: [place] 3:33 PM [facility] Cardiovascular Services [address] [place] [address] 12 Lead EKG 01/13/181954 MR#: [id number] Acct: [id number] Name: RAMSES BRADSHAW Rep #: [id number] : 1965 52 From: Samuel Keys MD Attending Dr: Autumn Gorman MD Status: DIS JOSUE Ordering Dr: Suki Cruz MD Date: 01/13/18 Location: [facility] Sex: F C Admitted: 01/13/18 Test Reason [...] Borderline ECG Confirmed by SAMUEL KEYS MD ([id number]), slot editor KIM KIM ([id number]) on 01/16/2018 3:33:04 PM Referred By: YAS Confirmed By:SAMUEL KEYS MD 01/16/18 1533 Date Samuel Keys MD CC: Gee Leon MD; Autumn Gorman MD; Suki Cruz MD Signed 12 LEAD ELECTROCARDIOGRAM Observed: 01/16/2018 Status: F Source: [place] 3:16 PM [facility] Cardiovascular Services [address] [place] [address] 12 Lead EKG 01/14/18 1535 MR#: [id number] Acct: [id number] Name: RAMSES BRADSHAW Rep #: [id number] : 1965 52 From: Samuel Keys MD Attending Dr: Autumn Gorman MD Status: DIS JOSUE Ordering Dr: Jcarlos Price MD Date: 01/14/18 Location: [facility] Sex: F C Admitted: 01/13/18 Test Reason : CP Blood Pressure : / mmHG Vent. Rate : 067 BPM Atrial Rate : 067 BPM P-R Int : 186 ms QRS Dur : 090 ms QT Int : 424 ms P-R-T Axes : 037 050 057 degrees QTc Int : 448 ms Normal sinus rhythm Normal ECG Confirmed by SAMUEL KEYS MD ([id number]), slot editor KIM KIM ([id number]) on 01/16/2018 3:15:54 PM Referred By: DENIS Confirmed By:SAMUEL KEYS MD 01/16/18 4176 Date Samuel Keys MD CC: Gee Leon MD; Autumn Gorman MD; Jcarlos Price MD Signed EMERGENCY DEPARTMENT Observed: 01/14/2018 Status: F Source: [place] SUMMARY 4:27 PM [facility] Medical Records Department [address] [place] [address] Emergency Department Summary 01/14/18 1623 MR#: [id number] Acct: [id number] Name: RAMSES BRADSHAW Rep #: [id number] : 1965 52 From: Virgil Daniels MD [...] testing is normal. Flat/depressed affect. Test Results: [place]-Hallpike maneuver positive Emergency Department Course and Treatment: Ignacia maneuver with resolution of symptoms Treatment Plan: Appropriate home-going instructions Disposition: Discharge to home Impression: Paroxysmal benign positional vertigo This note was generated with [employer] dictation software. It may contain incorrect words, [...] problems, contact your Primary Care Provider. Call [facility] ([phone]) or report to the closest Emergency Room. Call 911 if necessary. 01/14/18 7804 <Electronically signed by Virgil Daniels MD> Date Virgil Daniels MD Cosigner Signature (If Indicated): Date CC: Gee Leon MD STRESS TEST ECHO W/O Observed: 01/14/2018 Status: F Source: [place] CONTRAST 11:37 AM [facility] Cardiovascular Services [address] [place] [address] Stress Test Echo w/o Contrast MR#: [id number] Acct: [id number] Name: RAMSES BRADSHAW Rep #: [id number] : 1965 52 From: Samuel Keys MD [...] Jcarlos Price Performed By: Glendy Hughes RDCS 01/14/18 1137 Date Samuel Keys MD CC: Gee Leon MD; Autumn Gormna MD; Jcarlos Price MD Date Dictated: 01/14/18917 Date Transcribed: 01/14/18 1137 Financial Reserve Clerk: Signed DISCHARGE SUMMARY Observed: 01/14/2018 Status: F Source: [place] 11:28 AM [facility] Medical Records Department [address] [place] [address] Discharge Summary 01/14/18 1125 MR#: [id number] Acct: [id number] Name: RAMSES BRADSHAW Rep #: [id number] : 1965 52 From: Autumn Gorman MD PCP: Gee Leon MD Status: ADM JOSUE Y Location: [place] [address] Discharge Date and Diagnosis - Problem List [...] Patient was placed on a monitored bed NC was ruled out with serial cardiac enzymes. [...] applicable Code Visit OBSV E AND M: 41358 Observation care discharge 01/14/18 1128 <Electronically signed by Autumn Gorman MD> Date Autumn Gorman MD Cosigner Signature (if applicable): Date CC: Gee Leon MD; Autumn Gorman MD Signed DISCHARGE INSTRUCTION Observed: 01/14/2018 Status: F Source: [place] 11:24 AM [facility] Medical Records Department [address] [place] [address] Instructions for Home/Discharge Instructions 01/14/18 1119 MR#: [id number] Acct: [id number] Name: RAMSES BRADSHAW Rep #: [id number] : 1965 52 From: Autumn Gorman MD [...] mg PO BID 01/13/18 Primary Care Physician: Mihcael Leon MD [Primary Care Provider] - Test Results: Test results from this visit will be discussed in further detail at your follow-up appointment, if applicable. Proposed Discharge Date: 01/14/18 01/14/18 1124 <Electronically signed by Autumn Gorman MD> Date Autumn Gorman MD CC: Gee Leon MD TROPONIN-I Collected: 01/14/2018 Status: F Source: [place] 2:34 AM [facility] Order Comment: 'TROP' Serial specimen #1, #2 or #3: 2 TYPE CODE TESTS RESULT OUT OF RANGE REFERENCE UNITS LAB L501.4010 <0.045 ng/mL Normal < 0.015 TROPONIN-I Result Comment: TROPONIN-I EXPECTED VALUES <0.045 Negative 0.045 - 0.590 Consistent with Cardiac Damage > OR = 0.600 Critical Value Not every elevated troponin is indicative of NC. These values should be used with clinical judgement in examining the patient's clinical picture for diagnosis. To establish a diagnosis of NC versus myocardial injury, there must be a demonstrated rise and/or fall in the troponin values, in addition to ischemic symptoms, EKG changes, new regional wall motion abnormality, and/or angiographical evidence. PLEASE NOTE: REFERENCE RANGES EDITED 17 Performed By: #### L501.4010 #### [facility] [address] [facility] [place], [place], [address] CBC-COMPLETE BLOOD CNT Collected: 01/14/2018 Status: F Source: [place] NO DIFF 2:34 AM [facility] TYPE CODE TESTS RESULT OUT OF [...] MPV 9.6 Performed By: #### L100.0500 #### [facility] [address] [place], [place], [address] PROTHROMBIN TIME W/INR Collected: 01/14/2018 Status: F Source: [place] 2:34 AM [facility] TYPE CODE TESTS RESULT OUT OF RANGE REFERENCE UNITS LAB L300.4150 11.7-14.9 SECONDS Normal PROTIME 11.8 LAB L300.4200 Normal INR 0.9 Performed By: #### L300.3900, L300.4310 #### [facility] [address] [place], [address] PARTIAL THROMBOPLAST Collected: 01/14/2018 Status: F Source: [place] TIME 2:34 AM [facility] TYPE CODE TESTS RESULT OUT OF RANGE REFERENCE UNITS LAB L300.4310 24.1-36.2 Seconds Normal PTT 28.6 Performed By: #### L300.3900, L300.4310 #### [facility] [address] [place], [address] BASIC METABOLIC Collected: 01/14/2018 Status: F Source: [place] PROFILE (BMP) 2:34 AM [facility] TYPE CODE TESTS RESULT OUT OF [...] 8 Performed By: #### L500.2500, L500.4100 #### [facility] [address] [place], [address] LIPID PROFILE Collected: 01/14/2018 Status: F Source: [place] 2:34 AM [facility] TYPE CODE TESTS RESULT OUT OF [...] 61 Performed By: #### L500.2500, L500.4100 #### [facility] [address] [facility] [address] [place], [address] EMERGENCY DEPARTMENT Observed: 01/14/2018 Status: F Source: [place] SUMMARY 2:16 AM [facility] Medical Records Department [address] [place] [address] Emergency Department Summary 01/13/18 2200 MR#: [id number] Acct: [id number] Name: RAMSES BRADSHAW Rep #: [id number] : 1965 52 From: Suki Cruz MD [...] Chest pain This note was generated with [employer] dictation software. It may contain incorrect words, spelling, and punctuation that were not noted in review of the chart prior to signing ED Disposition - Plan for ED Patient: Disposition: Acute Care Hospital [facility] Chief Complaint: Chest Pain What to do if you have Problems For any increased pain, shortness of breath, bleeding, nausea or vomiting, chest pain, or any unexpected problems, contact your Primary Care Provider. Call [facility] ([phone]) or report to the closest Emergency Room. Call 911 if necessary. 01/14/18 0216 <Electronically signed by Suki Cruz MD> Date Suki Cruz MD Cosigner Signature (If Indicated): Date CC: Gee Leon MD TROPONIN-I Collected: 01/13/2018 Status: F Source: [place] 11:26 PM [facility] Order Comment: 'TROP' Serial specimen #1, #2 or #3: 1 TYPE CODE TESTS RESULT OUT OF RANGE REFERENCE UNITS LAB L501.4010 <0.045 ng/mL Normal < 0.015 TROPONIN-I Result Comment: TROPONIN-I EXPECTED VALUES <0.045 Negative 0.045 - 0.590 Consistent with Cardiac Damage > OR = 0.600 Critical Value Not every elevated troponin is indicative of NC. These values should be used with clinical judgement in examining the patient's clinical picture for diagnosis. To establish a diagnosis of NC versus myocardial injury, there must be a demonstrated rise and/or fall in the troponin values, in addition to ischemic symptoms, EKG changes, new regional wall motion abnormality, and/or angiographical evidence. PLEASE NOTE: REFERENCE RANGES EDITED 17 Performed By: #### L501.4010 #### [facility] [address] [place], [address] HISTORY AND PHYSICAL Observed: 01/13/2018 Status: F Source: [place] EXAM 10:23 PM [facility] Medical Records Department [address] [place] [address] History and Physical 01/13/18 2215 MR#: [id number] Acct: [id number] Name: RAMSES BRADSHAW Rep #: [id number] : 1965 52 From: Jcarlos Price MD [...] prophylaxis Code Visit OBSV E AND M: 82253 Initial observation care L2 01/13/183 <Electronically signed by Jcarlos Price MD> Date Jcarlos Price MD Cosign Signature: Date (if applicable) CC: Gee Leon MD; Jcarlos Price MD Signed CHEST 1 VIEW Observed: 01/13/2018 Status: F Source: [place] (PORTABLE) 8:07 PM [facility] Imaging Services [address] [place] [address] Chest 1 View (Portable) MR#: [id number] Acct: [id number] Name: ANA BRADSHAWPamela Rodríguez Rep #: [id number] : 1965 F 52 From: Jerry Wilkins DO PCP: Gee Leon MD Status: REG ER Study: Chest 1 View (Portable) Date of Exam: 01/13/18 Exam# [id number] Ordering Dr: Suki Cruz MD STUDY: X-RAY [...] examination of the chest. Electronically Signed: Jerry Wilkins DO at 20:46 EST Tel [phone], Service support , CC: Gee Leon MD; Suki Cruz MD Financial Reserve Clerk: Signed PROTHROMBIN TIME W/INR Collected: 01/13/2018 Status: F Source: [place] 8:00 PM [facility] TYPE CODE TESTS RESULT OUT OF RANGE REFERENCE UNITS LAB L300.4150 11.7-14.9 SECONDS Normal PROTIME 11.9 LAB L300.4200 Normal INR 0.9 Performed By: #### L300.3900 #### [facility] [place], [address] CBC W/DIFF, AUTOMATED Collected: 01/13/2018 Status: F Source: [place] 8:00 PM [facility] TYPE CODE TESTS RESULT OUT OF [...] Performed By: #### L100.0100, L500.2500, L501.4010 #### [facility] [address] [place], [place], [address] BASIC METABOLIC Collected: 01/13/2018 Status: F Source: [place] PROFILE (BMP) 8:00 PM [facility] [place] TYPE CODE TESTS RESULT OUT OF [...] Performed By: #### L100.0100, L500.2500, L501.4010 #### [facility] [address] [facility] [place], [place], [address] TROPONIN-I Collected: 01/13/2018 Status: F Source: [place] 8:00 PM [facility] TYPE CODE TESTS RESULT OUT OF RANGE REFERENCE UNITS LAB L501.4010 <0.045 ng/mL Normal < 0.015 TROPONIN-I Result Comment: TROPONIN-I EXPECTED VALUES <0.045 Negative 0.045 - 0.590 Consistent with Cardiac Damage > OR = 0.600 Critical Value Not every elevated troponin is indicative of NC. These values should be used with clinical judgement in examining the patient's clinical picture for diagnosis. To establish a diagnosis of NC versus myocardial injury, there must be a demonstrated rise and/or fall in the troponin values, in addition to ischemic symptoms, EKG changes, new regional wall motion abnormality, and/or angiographical evidence. PLEASE NOTE: REFERENCE RANGES EDITED 17 Performed By: #### L100.0100, L500.2500, L501.4010 #### [facility] [address] [place], [place], [address] PROGRESS Observed: 01/08/2018 Status: COMPLETED Source: [place] 3:35 PM [facility] REPOSITORY HNO ID: [id number] Author: Lorie Graff Nv Service: (none) Author Type: (none) Type: Progress [...] IV DATA: Not applicable SIGNED BY: Lorie Graff Ct January 08, 2018 3:[address] CERVICAL SPINE WO Observed: 01/08/2018 Status: F Source: [place] CONTRAST 3:32 PM [facility] REPOSITORY * * *Final Report* * * DATE OF EXAM: Jan 08 2018 3:32PM [facility] 0273 - CT CERVICAL SPINE WO CONTRAST [...] vertebrae with counting from the craniocervical junction. Financial Reserve Clerk: CHERIE Transcribe Date/Time: Jan 08 2018 3:43P Dictated by : GEE DRUMMOND MD This examination was interpreted and the report reviewed and electronically signed by: GEE DRUMMOND MD on Jan 08 2018 3:47PM EST OPERATIVE REPORT - Observed: 01/06/2018 Status: F Source: [place] ENDOSCOPY 11:45 AM [facility] [place] Medical Records Department [address] [place] [address] Operative Report - Endoscopy MR#: [id number] Acct: [id number] Name: RAMSES BRADSHAW Rep #: [id number] : 1965 52 From: Clarissa Casas MD PCP: Gee Leon MD Status: REG [facility] Patient Name: Ramses Bradshaw Procedure Date: 01/06/2018 [...] Await pathology results. Will also d/w Dr. 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 All rights reserved. The codes documented in this report are preliminary and upon television service engineer review may be revised to meet current compliance requirements. MD Clarissa Gardner MD 01/06/2018 11:44:58 AM This report has been signed electronically. Number of Addenda: 0 Note Initiated On: 01/06/2018 11:06 AM 01/06/18 1145 Date Clarissa Robotham MD Cosigner Signature: Date (if indicated) CC: Gee Leon MD; Clarissa Casas MD Date Dictated: 01/06/18 1106 Date Transcribed: Financial Reserve Clerk: TR Signed EGD ([facility]) Observed: 01/06/2018 Status: F Source: [place] 11:00 AM [facility] Patient: RAMSES BRADSHAW : 1965 (52/F) Acct Num: [id number] Phys: Damon GAUTAM,Clarissa Unit Num: [id number] Loc: EN Specimen: [id number] Received: 01/06/18 - 1157 Spec Type: EGD BIOPSY TISSUES 1 TISSUES: A. Gastric mucous membrane B. Gastric mucous membrane COMMENT A. The results of immunohistochemistry for Helicobacter pylori will be reported separately ([id number]). B. Alcian blue/PAS stain with matched control is used in the evaluation of the specimen. Please make reference to previous specimen ([id number]), gastric fundus, biopsy with diagnosis of neuroendocrine [...] is totally submitted in one cassette. / SJ:rg 01/06/18 TC:3 CPT: 07232 x2, 87091 HEADER OPERATION: EGD ([facility]) PRE-OP DIAGNOSIS: Neuroendocrine tumor of stomach, nausea, [...] Negative for dysplasia. Chronic inflammation. See comment. SJ:marty 01/07/18 Signed Kam Wiley 01/07/18 <signature on file> Performed By: #### PEGD #### [facility] [address] [place] [address]. [place], [place], [address] IMMUNOHISTOCHEMISTRY Observed: 01/06/2018 Status: F Source: [place] 11:00 AM [facility] Patient: RAMSES BRADSHAW : 1965 (52/F) Acct Num: [id number] Phys: Damon GAUTAMClarissa Unit Num: [id number] Loc: EN Specimen: [id number] Received: 01/07/18946 Spec Type: IMMUNO TISSUES 1 TISSUES: B. Stomach, NOS SPECIMEN INFORMATION: Tissue Source: A - Gastric antrum Clinical Info: Neuroendocrine tumor of stomach, nausea, GERD, epigastric abdominal pain Specimen Number: [id number] CPT code: 78015 METHODOLOGY: Deparaffinized sections of prefer/formalin-fixed tissue or [...] developed and their performance characteristics determined by [facility]. They may not have been cleared or approved by the U.S. Food and Drug Administration. The FDA has determined that such clearance or approval is not necessary. INTERPRETATION: A. Gastric antrum: Negative for Helicobacter pylori organisms. SJ:marty 01/07/18 PHYSICIAN AND INSTITUTION [address] [address] Signed Kam Wiley 01/07/18 <signature on file> Performed By: #### PIMM #### [facility] [address] [place], [address] SURGERY VISIT REPORT Observed: 12/27/2017 Status: F Source: [place] 12:57 PM [facility] [address] [place] [address] OFFICE VISIT Date of Service: 12/27/17 MR#: [id number] Acct: [id number] Name: RAMSES BRADSHAW Rep #: [id number] : 1965 Provider: Clarissa Casas MD Age/Sex: 52/F Location: [facility] Status: Signed Intake Vital Signs12/27/17 Height 5 ft 3 in 12/27/17 Weight: 159 lb Intake Visit Reasons: needs egd Curriculum Advisory Teacher Required: No Is patient in pain?: No [...] mg PO BID 12/27/17 [History Confirmed 12/27/17] [facility] Medical History Neuroendocrine neoplasm of stomach (Acute) [...] of the stomach-2cm by Dr. Hernández at [facility]. Pt had nausea/GERD/epigastric pain prior to [...] PACEMAKER CHECK Observed: 12/24/2017 Status: F Source: [place] 1:54 PM [facility] [address] [place] [address]. [address] [place] [address] Pacemaker Check Date of Service: 12/24/17 1352 MR#: [id number] Acct: [id number] Name: RAMSES BRADSHAW Rep #: [id number] : 1965 From: Imelda Hernandez Age/Sex: 52/F [place] [facility] [place]: Signed Billing Codes PM Device Codes: PM Dev Mireya Schumacher, Dual 12/24/17 1352 <Electronically signed by Imelda Hernandez > Date Imelda Hernandez 12/24/17 1354<Electronically signed by Samuel Keys MD> Cosigner Signature: Date (if applicable) Samuel Keys MD CC: CERV SPINE 4 OR 5 Observed: 12/16/2017 Status: F Source: [place] VIEWS 5:04 PM [facility] Imaging Services [address] [place] [address] Cerv Spine 4 or 5 Views MR#: [id number] Acct: [id number] Name: RAMSES BRADSHAW Rep #: [id number] : 1965 F 52 From: Marco Antonio Shah MD PCP: Gee Leon MD Status: REG CLI Study: Cerv Spine 4 or 5 Views Date of Exam: 12/16/17 Exam# [id number] Ordering Dr: Ger Javed MD STUDY: X-RAY [...] CC: Gee Leon MD; Ger Javed M.D. Financial Reserve Clerk: Signed RE-EVALUATION - PT (1) Observed: 12/12/2017 Status: F Source: [place] 9:46 AM [facility] [address] [place], [place] [address] Fax REEVALUATION / MEDICARE RECERTIFICATION PHYSICAL THERAPY MR#: [id number] Acct: [id number] Name: RAMSES BRADSHAW Rep #: [id number] : 1965 52 From: Amarilis Reed PT, Cert. MDT Referring Dr.: Ger Javed M.D. Status: REG RCR Insurance: [facility] MEDICARE O MEDICAID Ger Javed MD, It has been [...] WITHOUT C/O INCREASED PAIN. Motor deficit: RIGHT PIPELINE WELDER STRENGTH 55 LBS. LEFT PIPELINE WELDER STRENGTH 60 LBS (PATIENT IS RIGHT HAND [...] PAIN. Core strength: POOR. 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 Sincerely, Amarilis Reed <Electronically signed by Amarilis Reed PT, Cert. MDT> 12/12/17 0946 CC: Gee Leon MD; Ger Javed M.D. LEESA Signed For Medicare only, by signing this I certify the plan of care. Physicians Signature Date PROGRESS Observed: 12/02/2017 Status: COMPLETED Source: [place] 2:00 PM [facility] REPOSITORY HNO ID: [id number] Author: Lorie Fernandez Service: (none) Author Type: [...] DATA: Not applicable SIGNED BY: Lorie Fernandez December 02, 2017 2:[address] THORACIC SPINE WO Observed: 12/02/2017 Status: F Source: [place] IVCON 1:46 PM [facility] [place] REPOSITORY * * *Final Report* * * DATE OF EXAM: Dec 02 2017 1:46PM [facility] 0514 - CT THORACIC SPINE WO IVCON [...] L4-L5 posterior lumbar fusion noted on the diesel maintenance technician images. Multifocal posterior/dependent predominant groundglass opacities with scattered areas of air trapping in the visualized portions of the lungs. Canal and foramina: The bony thoracic canal and foramina are patent. IMPRESSION: Minimal spondylotic changes and no suspicious osteolytic or osteoblastic lesions. Anatomic Variant: None. L4-5 is considered the level of the iliac crest and assume there are 5 lumbar-type vertebrae. Financial Reserve Clerk: PSCB Transcribe Date/Time: Dec 02 2017 4:54P Dictated by : AUTUMN LÓPEZ MD This examination was interpreted and the report reviewed and electronically signed by: AUTUMN LÓPEZ MD on Dec 02 2017 5:06PM EST [id number] Observed: 11/21/2017 Status: COMPLETED Source: [place] 3:30 PM [facility] REPOSITORY Nurse Visit (CAWSTR) RAMSES BRADSHAW ([id number]) 1965 F Date Time Provider Department 11/21/17 3:30 PM NURSE CARD ADMIN [facility] WSTR CAWSTR During your visit today, we recorded the following information about you: Referring Provider: SELWYN FARFAN [[id number]] Allergies As of Date: 11/21/2017 Noted Allergy [...] Order(s):ECG COMPLETE W INTERPRETATION [ECG01] Order #: [id number] Prescriptions as of 11/21/2017 Sig: GABAPENTIN 300 [...] 11/27/17 PROGRESS Observed: 11/21/2017 Status: COMPLETED Source: [place] 1:57 PM [facility] REPOSITORY HNO ID: [id number] Author: Selwyn Farfan Service: (none) Author Type: [...] N/A Beta aislinn for ASHD with prior NC or prior LVEF<40 (NQF 0070) - N/A [...] MD EKG1 Observed: 11/21/2017 Status: F Source: [place] 1:21 PM [facility] REPOSITORY NAME : RAMSES BRADSHAW PID : [id number] : 1965 Gender : Female Race : [...] ms QTC Calculation(Bezet) : 454 ms P [place] : 30 degrees R [place] : 52 degrees T [place] : 56 degrees Test Reason : Location : 136 : [place] Overread By : SELWYN FARFAN MD Edited By : SELWYN FARFAN MD Referred By : SELWYN FARFAN Acquired by : RACHELLE MESA Observed: 11/21/2017 Status: COMPLETED Source: [place] 1:15 PM [facility] REPOSITORY Office Visit (CAWSTR) RAMSES BRADSHAW ([id number]) 1965 F Date Time Provider Department 11/21/17 1:15 PM SELWYN FARFAN During your visit today, we recorded the following information about you: Pulse Blood pressure Weight 64/minute 113/74 71.2 kg Selwyn Farfan MD 11/21/2017 5:53 PM Signed PERTINENT CARDIAC HISTORY Syncope - multiple etiologies PPM - 2004, revised 2013 HL Chest pain PFO HTN ADHERENCE TO GUIDELINES DUSTIN-I or ARB for HF with prior LVEF<40 (NQF 0081) - N/A ASA or Plavix for ASHD (NQF 0067) - N/A Beta aislinn for ASHD with prior NC or prior LVEF<40 (NQF 0070) - N/A [...] Syncope HISTORY OF PRESENT ILLNESS Ramses Bradshaw Killian for follow-up of her multifactorial syncope. She [...] the following areas and commit to making intermediate changes. EAT A WHOLE FOOD, PLANT BASED [...] in your area. Referring Provider: SELWYN FARFAN [[id number]] Allergies As of Date: 11/21/2017 Noted Allergy [...] Order(s):ECG COMPLETE W INTERPRETATION [ECG01] Order #: [id number] FUTURE Prescriptions as of 11/21/2017 Sig: GABAPENTIN [...] the following areas and commit to making intermediate changes. EAT A WHOLE FOOD, PLANT BASED [...] EVALUATION (1) Observed: 11/07/2017 Status: F Source: [place] - PT 1:33 PM [facility] [address] [place] [address]. [address] [place], [place] [address] Fax REHABILITATION SERVICES INITIAL EVALUATION MR#: [id number] Acct: [id number] Name: RAMSES BRADSHAW Rep #: [id number] : 1965 52 From: Amarilis Reed PT, Cert. MDT Referring Dr.: Ger Javed M.D. Status: REG R Insurance: [employer] MEDICARE PPO MEDICAID Patient's Visit [...] Pain Scale: WORST 9/10, LEAST 5/10. Currently: 09/17. Commenced as a result of: NO APPARENT [...] ARMS PROVOKES PAIN BEHAVIOR. Motor deficit: HOLGER PIPELINE WELDER STRENGTH 55 LBS. ONLY PERFORMED MMT'ING OF [...] to be FAXED BACK to us at [phone] for Medicare purposes. Please let me know [...] Status: F Source: [place] VIEWS 11:28 AM [facility] Imaging Services [address] [address] Thoracic Spine 2 Views MR#: [id number] Acct: [id number] Name: RAMSES BRADSHAW Rep #: [id number] : 1965 F 52 From: Elton Branham DO PCP: Gee Leon MD Status: REG CLI Study: Thoracic Spine 2 Views Date of Exam: 10/29/17 Exam# [id number] Ordering Dr: Ger Javed MD STUDY: X-RAY [...] CC: Gee Leon MD; Ger Javed M.D. Financial Reserve Clerk: Signed URINE DRUG SCREEN Collected: 10/29/2017 Status: F Source: [place] (VISTA) 11:18 AM [facility] Order Comment: Comments: [id number] URINE DRUG SCREEN List of Drugs Taken [...] Normal NEGATIVE Performed By: #### L505.5000 #### [facility] [address] [place], [address] MISCELLANEOUS LAB Collected: 10/29/2017 Status: F Source: [place] PROCEDURE 11:18 AM [facility] Order Comment: Comments: [id number] URINE DRUG SCREEN Test(s) Ordered: [id number] URINE DRUG SCREEN TYPE CODE TESTS RESULT OUT OF RANGE REFERENCE UNITS LAB L801.[address] [facility] LAB TEST Result Comment: [id number] 6+OXYCODONE-BUND (ng/mL) DRUG RESULT SCREEN CUTOFF ____ Amphetamines,Urine Negative ng/mL 1000 Amphetamine test includes Amphetamine and Methamphetamine. Barbiturates Negative ng/mL 200 Benzodiazepines Negative ng/mL 200 Cannabinoid Negative ng/mL 20 Cocaine (Metab) Negative ng/mL 300 Opiates Negative ng/mL 300 Opiates test includes Codeine, Morphine, Hydromorphone, Hydrocodone. Oxycodone/Oxymorphone,Urine Negative ng/mL 300 Test includes Oxydodone and Oxymorphone. TESTING PERFORMED AT [facility]. ORIGINAL REPORT ON FILE IN LAB CONTAINS ADDITIONAL TEST SITE INFORMATION. Performed By: #### L801.1541 #### [facility] [address] [place], [address] EMERGENCY DEPARTMENT Observed: 10/12/2017 Status: F Source: [place] SUMMARY 10:34 PM [facility] Medical Records Department [address] [place] [address] Emergency Department Summary 10/04/17 1525 MR#: [id number] Acct: [id number] Name: RAMSES BRADSHAW Rep #: [id number] : 1965 52 From: Crystal Mcdowell PCP: [...] and has a monitor on by her insurance card company to let somebody know when she falls. [...] wall contusion] This note was generated with [employer] dictation software. It may contain incorrect words, [...] problems, contact your Primary Care Provider. Call [facility] ([phone]) or report to the closest Emergency Room. Call 911 if necessary. 10/12/17 2234 <Electronically signed by Crystal Mcdowell > Date Crystal Mcdowell Cosigner Signature (If Indicated): Date CC: Gee Leon MD 12 LEAD ELECTROCARDIOGRAM Observed: 10/10/2017 Status: F Source: [place] 11:51 AM [facility] Cardiovascular Services [address] [place] [address] 12 Lead EKG 10/08/17 194 MR#: [id number] Acct: [id number] Name: RAMSES BRADSHAW Anne Rep #: [id number] : 1965 52 From: Jcarlos Mendoza MD [...] ECG Confirmed by AIDEN GAUTAM, JCARLOS ([id number]), slot editor KIM KIM ([id number]) on 10/10/2017 11:51:34 AM Referred By: MUKUND Confirmed By:JCARLOS MENDOZA MD 10/10/17 1151 Date Jcarlos Mendoza MD CC: Gee Leon MD; Kaushal Mendoza MD Signed EMERGENCY DEPARTMENT Observed: 10/09/2017 Status: F Source: [place] SUMMARY 1:46 AM [facility] Medical Records Department [address] [place] [address] Emergency Department Summary 10/09/17 0130 MR#: [id number] Acct: [id number] Name: RAMSES BRADSHAW Rep #: [id number] : 1965 52 From: Kaushal Mendoza MD PCP: Gee Leon MD Status: DEP ER - ER Visit Summary Date of Service: 10/09/17 Chief Complaint: Syncope History of Present Illness: The patient is a [address] Adams and Dr. José. She reports that at [...] of treatment. This note was generated with [employer] software. It may contain incorrect words, spelling, [...] problems, contact your Primary Care Provider. Call [facility] ([phone]) or report to the closest Emergency Room. Call 911 if necessary. 10/09/17 0146 <Electronically signed by Kaushal Mendoza MD> Date Kaushal Mendoza MD Cosigner Signature (If Indicated): Date CC: Gee Leon MD CBC Collected: 10/09/2017 Status: F Source: [place] 12:54 AM [facility] REPOSITORY TYPE CODE TESTS RESULT OUT OF [...] x10EE3/U L Neut # High 9.90 LAB Nicholas #(LOINC) 0.20 - 1.00 x10EE3/U L Nicholas # 0.60 LAB EO #(LOINC) 0.00 - 0.50 x10EE3/U L EO # 0.20 LAB Baso #(LOINC) 0.00 - 0.10 x10EE3/U L Baso # 0.10 LAB MANUAL DIFF(LOINC) MANUAL DIFF N/A LAB MORPHOLOGY(LOINC ) MORPHOLOGY N/A Result Comment: {CD] Performed By: #### [id number] #### [facility],[address] [place], [place] [address] TROPONIN Collected: 10/09/2017 Status: F Source: [facility] 12:54 AM [facility] REPOSITORY TYPE CODE TESTS RESULT OUT OF [...] such as heterophile antibodies). Performed By: #### [id number] #### [facility],[address] [place] [address] CMP WITH EGFR Collected: 10/09/2017 Status: F Source: [facility] 12:54 AM [facility] REPOSITORY TYPE CODE TESTS RESULT OUT OF [...] OF AGE AND OLDER. Performed By: #### [id number] #### [facility],[address] [address] EMERGENCY REPORT Observed: 10/08/2017 Status: F Source: [facility] 10:59 PM [facility] EMERGENCY ROOM REPORT NAME ACCOUNT SEX AGE ADMIT DISCHARGE PT MED. RECORD# NUMBER DATE DATE TYPE LEEANN [id number] F 52 10/08/17 10/09/17 3 RAMSES Anne [id number] ROOM: ER DATE OF : 1965 DICTATING PHYSICIAN: Crystal Lujan CHIEF COMPLAINT: Headache. HISTORY OF PRESENT ILLNESS: The patient is a 52-year-old female with a history of sick sinus syndrome, anxiety, stomach cancer, and migraines presenting with a headache. The patient states she has had a headache for the past few days, but it has been significantly worse tonight. She states it is worse with moving and describes it as a squeezing sensation. She has associated photophobia with it. The patient has not taken anything at home for her headache because she states ibuprofen she cannot take because of her history of stomach cancer and GI upset. The patient also states that she had an episode of syncope earlier today. She notes that she frequently has syncopal episodes and this was no different. She denies hitting her head or any other injuries. The patient initially went to [place] [facility] where she was evaluated, but then left against medical advice stating that they were accusing her of being a drug addict. The patient does consent to have her records transferred over from [place] to be reviewed. The patient denies any associated chest pain, shortness of breath, or difficulty breathing. She denies any other complaints at this time. She is not having any reported fevers. She denies any neck pain. PAST MEDICAL HISTORY: Significant for migraines, syncope, sick sinus syndrome, anxiety, and stomach cancer. PAST SURGICAL HISTORY: Hysterectomy, L4-5 fusion, hysterectomy, and pacemaker placed. ALLERGIES: No known drug allergies. SOCIAL HISTORY: The patient does admit to tobacco use, but denies alcohol or illicit drug use. REVIEW OF SYSTEMS: Nine point review of systems is performed and is positive for nausea, headache, and photophobia. All other systems are negative. PHYSICAL EXAMINATION: Vitals: Temperature 36.7, pulse 71, respiratory rate 16, blood pressure 152/99, O2 saturation 98% on room air and BMI 28.17. In general, the patient is awake, alert, and in no acute distress; however, she does appear uncomfortable. HEENT: Normocephalic and atraumatic with moist mucosal membranes. Page 1 of 3 RAMSES BRADSHAW Emergency Room Report Clear tympanic membranes bilaterally with no hemotympanum. No malocclusion appreciated. Pupils are equal, round, and reactive to light with EOMI. [place] conjunctivae. Neck is supple with no JVD. Painless range of motion and no spinal process tenderness. Lungs: Clear to auscultation bilaterally with no wheezing or crackling. Heart: Regular rate and rhythm with equal pulses in all 4 extremities. Abdomen: Abdomen is soft and nontender. Skin: Brisk capillary refill with no rash. Neurologic: The patient is alert and oriented x4 with no focal or neurologic deficits. Cranial nerves II-XII are grossly intact. She is moving all extremities without any difficulty. Musculoskeletal: No joint pain on palpation or deformity appreciated. Psychiatric: The patient does appear anxious, but is behaving appropriately. DIAGNOSTIC DATA: EKG shows normal sinus rhythm with a rate of 74 with OH interval of 168, QRS 90, QT/QTc 410/455 with a normal axis and normal ST segments. No change when compared to prior EKG of August 23, 2017. CBC: White blood cell count 13.5, hemoglobin 15.5, hematocrit 44.9, platelets 239,000. Troponin is negative. CMP normal. MEDICAL DECISION MAKING/EMERGENCY DEPARTMENT COURSE AND TREATMENT: The patient is given a migraine cocktail consisting of 1 liter of IV fluids, IV Toradol, IV Compazine, and IV Benadryl. On reevaluation, she states she has complete improvement of all of her symptoms, feels much better, and would like to go home. The patient is evaluated for a headache. She admits to having a syncopal episode today, but she was already evaluated at [facility]. At that time, they did want to interrogate her pacer; however, she declined and left against medical advice. Her troponin at [place] was also negative. Her records were obtained after she signed consent. The patient also had a head CT performed at [place] 2 days ago which was within normal limits. As the patient has a history of syncope and follows with cardiology, I do not think she needs admission for a syncopal episode that happened earlier today especially as she came in just complaining of a headache. She has no signs consistent with meningitis, and I do not think that repeat imaging is indicated at this time. She does have a mild leukocytosis; however, this is minimal and on prior visits she has also had an elevated white blood cell counts, so this might be her baseline. DIAGNOSIS: Headache, not intractable. PLAN/DISPOSITION: She is discharged home with instructions for outpatient follow up. The patient is encouraged to follow up with her whiteprinting machine operator for outpatient interrogation of her pacemaker. She verbalizes agreement and understanding with this plan. She is counseled on signs and symptoms requiring return to the emergency room and she is discharged to home in improved and stable condition. Dictated By: Crystal Lujan DO 10/09/17 06:02 Page 2 of 3 RAMSES BRADSHAW Emergency Room Report JOB #: [id number] Transcribed By: am 10/09/17 12:17 Electronically signed by: Alison Lujan D.O. 03/22/18 04:55 Page 3 of 3 RAMSES BRADSHAW Emergency Room Report CBC W/DIFF, AUTOMATED Collected: 10/08/2017 Status: C Source: [place] 8:00 PM [facility] [place] TYPE CODE TESTS RESULT OUT OF [...] NORM C+C Performed By: #### L100.0100 #### [facility] [address] [place], [place], [id number] BASIC METABOLIC Collected: 10/08/2017 Status: F Source: [place] PROFILE ([facility]) 8:00 PM [facility] [place] [facility] TYPE CODE TESTS RESULT OUT OF [...] GAP Performed By: #### L500.2500, L501.4010 #### [facility] [address] [place], [address] TROPONIN-I Collected: 10/08/2017 Status: F Source: [place] 8:00 PM [facility] [place] [facility] TYPE CODE TESTS RESULT OUT OF RANGE REFERENCE UNITS LAB L501.4010 <0.045 ng/mL Normal < 0.015 TROPONIN-I Result Comment: TROPONIN-I EXPECTED VALUES <0.045 Negative 0.045 - 0.590 Consistent with Cardiac Damage > OR = 0.600 Critical Value Not every elevated troponin is indicative of NC. These values should be used with clinical judgement in examining the patient's clinical picture for diagnosis. To establish a diagnosis of NC versus myocardial injury, there must be a demonstrated rise and/or fall in the troponin values, in addition to ischemic symptoms, EKG changes, new regional wall motion abnormality, and/or angiographical evidence. PLEASE NOTE: REFERENCE RANGES EDITED 17 Performed By: #### L500.2500, L501.4010 #### [facility] [address] [place], [address] 12 LEAD ELECTROCARDIOGRAM Observed: 10/08/2017 Status: F Source: [place] 2:15 PM [facility] [place] [facility] [address] [place] [address] 12 Lead EKG 10/04/17 1402 MR#: [id number] Acct: [id number] Name: JULIA BRADSHAWCATHLEEN Rodríguez Rep #: [id number] : 1965 52 From: Jcarlos Mendoza MD [...] Normal ECG Confirmed by AIDEN GAUTAM, JCARLOS ([id number]), slot editor KIM KIM ([id number]) on 10/08/2017 2:14:39 PM Referred By: IRENA Confirmed By:JCARLOS MENDOZA MD 10/08/17 1414 Date Jcarlos Mendoza MD CC: Crystal Mcdowell; Gee Leon MD Signed 12 LEAD ELECTROCARDIOGRAM Observed: 10/08/2017 Status: F Source: [place] 2:15 PM [facility] [place] [facility] [address] [place] [address] 12 Lead EKG 10/04/17 1630 MR#: [id number] Acct: [id number] Name: ANA BRADSHAWPamela Rodríguez Rep #: [id number] : 1965 52 From: Jcarlos Mendoza MD [...] Normal ECG Confirmed by AIDEN GAUTAM, JCARLOS ([id number]), slot editor KIM KIM ([id number]) on 10/08/2017 2:15:05 PM Referred By: IRENA Confirmed By:JCARLOS EMNDOZA MD 10/08/17 1415 Date Jcarlos Mendoza MD CC: Crystal Mcdowell; Gee Leon MD Signed DISCHARGE INSTRUCTION Observed: 10/04/2017 Status: F Source: [place] 4:40 PM [facility] Medical Records Department [address] [place] [address] Discharge Instruction 10/04/17 1639 MR#: [id number] Acct: [id number] Name: RAMSES BRADSHAW Rep #: [id number] : 1965 52 From: Crystal Mcdowell PCP: [...] your Primary Care Provider. Call [facility] ([phone]) or report to the closest Emergency Room. Call 911 if necessary. 10/04/17 1640 <Electronically signed by Crystal Mcdowell > Date Crystal Irena Cosigner Signature (If Indicated): Date CC: Gee Leon MD URINALYSIS, COMPLETE Collected: 10/04/2017 Status: F Source: [place] 4:00 PM [facility] [place] [facility] Order Comment: Order Date: 10/04/17 How was Urine Obtained? PHARMACY BILLING ADJUDICATOR TO SPECIFY TYPE CODE TESTS RESULT OUT [...] URINE SEEN Performed By: #### L400.0001 #### [facility] [address] [place], [address] URINE DRUG SCREEN Collected: 10/04/2017 Status: F Source: [place] ([facility]) 4:00 PM [facility] [place] [facility] TYPE CODE TESTS RESULT OUT OF RANGE REFERENCE UNITS LAB L505.0075 TO BE Normal CONFIRMED Result Comment: CONFIRMATORY TESTING FOR ALL POSITIVE URINE DRUG SCREEN RESULTS WILL ONLY BE SENT OUT UPON PHYSICIAN ORDER. RISHI Urine Drug Screen methods provide only preliminary [...] Normal NEGATIVE Performed By: #### L505.5000 #### [facility] [address] [place], [address] CBC W/DIFF, AUTOMATED Collected: 10/04/2017 Status: F Source: [place] 2:34 PM [facility] [place] [facility] TYPE CODE TESTS RESULT OUT OF [...] Lymph 3.81 Performed By: #### L100.0100 #### [facility] [address] [place], [place], [address] COMPREHENSIVE METABOLIC Collected: 10/04/2017 Status: F Source: [facility] 2:34 PM [facility] [place] [facility] TYPE CODE TESTS RESULT OUT OF [...] 7 Performed By: #### L500.4050, L501.4010 #### [facility] [address] [facility] [place], [address] TROPONIN-I Collected: 10/04/2017 Status: F Source: [place] 2:34 PM [facility] [place] [facility] TYPE CODE TESTS RESULT OUT OF RANGE REFERENCE UNITS LAB L501.4010 <0.045 ng/mL Normal < 0.015 TROPONIN-I Result Comment: TROPONIN-I EXPECTED VALUES <0.045 Negative 0.045 - 0.590 Consistent with Cardiac Damage > OR = 0.600 Critical Value Not every elevated troponin is indicative of NC. These values should be used with clinical judgement in examining the patient's clinical picture for diagnosis. To establish a diagnosis of NC versus myocardial injury, there must be a demonstrated rise and/or fall in the troponin values, in addition to ischemic symptoms, EKG changes, new regional wall motion abnormality, and/or angiographical evidence. PLEASE NOTE: REFERENCE RANGES EDITED 17 Performed By: #### L500.4050, L501.4010 #### [facility] [address] [facility], [address] BRAIN/HEAD WITHOUT Observed: 10/04/2017 Status: F Source: [place] CONTRAST 2:30 PM [facility] [place] [facility] Imaging Services [address] [place] [address] Brain/Head without Contrast MR#: [id number] Acct: [id number] Name: RAMSES BRADSHAW Rep #: [id number] : 1965 F 52 From: Sherwin Dobbs MD PCP: Gee Leon MD Status: PRE ER Study: Brain/Head without Contrast Date of Exam: 10/04/17 Exam# [id number] Ordering Dr: Crystal Mcdowell STUDY: CT BRAIN [...] , CC: Crystal Mcdowell; Gee Leon MD Financial Reserve Clerk: Signed SPINE CERVICAL Observed: 10/04/2017 Status: F Source: [place] WITHOUT CONTRAS 2:30 PM [facility] [place] [facility] Imaging Services [address] [place] [address] Spine Cervical without Contras MR#: [id number] Acct: [id number] Name: JULIA BRADSHAWCATHLEEN Rodríguez Rep #: [id number] : 1965 F 52 From: Sherwin Dobbs MD PCP: Gee Leon MD Status: PRE ER Study: Spine Cervical without Contras Date of Exam: 10/04/17 Exam# [id number] Ordering Dr: Crystal Mcdowell STUDY: CT CERVICAL [...] , CC: Crystal Mcdowell; Gee Leon MD Financial Reserve Clerk: Signed SPINE LUMBAR WITHOUT Observed: 10/04/2017 Status: F Source: [place] CONTRAST 2:30 PM [facility] [place] [facility] Imaging Services [address] [place] [address] Spine Lumbar without Contrast MR#: [id number] Acct: [id number] Name: RAMSES BRADSHAW Rep #: [id number] : 1965 F 52 From: Sherwin Dobbs MD PCP: Gee Leon MD Status: PRE ER Study: Spine Lumbar without Contrast Date of Exam: 10/04/17 Exam# [id number] Ordering Dr: Crystal Mcdowell STUDY: CT LUMBAR [...] , CC: Crystal Mcdowell; Gee Leon MD Financial Reserve Clerk: Signed 12 LEAD ELECTROCARDIOGRAM Observed: 08/28/2017 Status: F Source: [place] 3:14 PM [facility] [address] [place] [address] 12 Lead EKG 08/22/17 1755 MR#: [id number] Acct: [id number] Name: RAMSES BRADSHAW Rep #: [id number] : 1965 52 From: Jcarlos Mendoza MD [...] normal ECG Confirmed by AIDEN GAUTAM, JCARLOS ([id number]), slot editor KIM KIM ([id number]) on 08/28/2017 3:14:14 PM Referred By: KRISS Confirmed By:JCARLOS MENDOZA MD 08/28/17 1514 Date Jcarlos Mendoza MD CC: Debi Amaya MD; Gee Leon MD Signed EMERGENCY DEPARTMENT Observed: 08/27/2017 Status: F Source: [place] SUMMARY 7:29 AM [facility] [place] [facility] Medical Records Department [address] [place] [address] Emergency Department Summary 08/27/17 0340 MR#: [id number] Acct: [id number] Name: RAMSES BRADSHAW Rep #: [id number] : 1965 52 From: Ubaldo Dhillon MD [...] Abdominal pain This note was generated with [employer] dictation software. It may contain incorrect words, [...] your Primary Care Provider. Call [facility] ([phone]) or report to the closest Emergency Room. Call 911 if necessary. 08/27/17 0742 <Electronically signed by Ubaldo Dhillon MD> Date Ubaldo Dhillon MD Cosigner Signature (If Indicated): Date CC: Gee Leon MD DISCHARGE INSTRUCTION Observed: 08/27/2017 Status: F Source: [place] 7:29 AM [facility] [place] Medical Records Department [address] [place] [address] Discharge Instruction 08/27/17 0343 MR#: [id number] Acct: [id number] Name: RAMSES BRADSHAW Rep #: [id number] : 1965 52 From: Ubaldo Dhillon MD [...] your Primary Care Provider. Call [facility] ([phone]) or report to the closest Emergency Room. Call 911 if necessary. 08/27/17 0729 <Electronically signed by Ubaldo Dhillon MD> Date Ubaldo Dhillon MD Cosigner Signature (If Indicated): Date CC: Gee Leon MD CBC W/DIFF, AUTOMATED Collected: 08/27/2017 Status: F Source: [place] 1:50 AM [facility] [place] TYPE CODE TESTS RESULT OUT OF [...] Lymph 3.65 Performed By: #### L100.0100 #### [facility] [address] [place], [place], [address] PROTHROMBIN TIME W/INR Collected: 08/27/2017 Status: F Source: [place] 1:50 AM [facility] TYPE CODE TESTS RESULT OUT OF RANGE REFERENCE UNITS LAB L300.4150 11.7-14.9 SECONDS Normal PROTIME 12.8 LAB L300.4200 Normal INR 1.0 Performed By: #### L300.3900, L300.4310 #### [facility] [address] [place], [address] PARTIAL THROMBOPLAST Collected: 08/27/2017 Status: F Source: [place] TIME 1:50 AM [facility] TYPE CODE TESTS RESULT OUT OF RANGE REFERENCE UNITS LAB L300.4310 24.1-36.2 Seconds Normal PTT 32.9 Performed By: #### L300.3900, L300.4310 #### [facility] [address] [place], [place], [address] COMPREHENSIVE METABOLIC Collected: 08/27/2017 Status: F Source: [place] PROFIL 1:50 AM [facility] [place] TYPE CODE TESTS RESULT OUT OF [...] GAP 5 Performed By: #### L500.4050 #### [facility] [address] [place], [address] ACETAMINOPHEN (TYLENOL) Collected: 08/27/2017 Status: F Source: [place] LEVEL 1:50 AM [facility] [place] TYPE CODE TESTS RESULT OUT OF REFERENCE UNITS RANGE LAB L501.8400 10.0-30.0 ug/mL ACETAMINOPHEN Low 4.9 Performed By: #### L501.8400 #### [place] [facility] [address] [place], [address] LIPASE Collected: 08/27/2017 Status: F Source: [place] 1:50 AM [facility] [place] TYPE CODE TESTS RESULT OUT OF RANGE REFERENCE UNITS LAB L501.2450 73-393 U/L Normal LIPASE 136 Performed By: #### L501.2450 #### [place] [facility] [address] [place], [address] EMERGENCY REPORT Observed: 08/25/2017 Status: F Source: [place] ANGLIN 3:56 AM [facility] EMERGENCY ROOM REPORT NAME ACCOUNT SEX AGE ADMIT DISCHARGE PT MED. RECORD# NUMBER DATE DATE TYPE LEEANN [id number] F 52 08/23/17 08/23/17 3 RAMSES Rodríguez [id number] ROOM: ER DATE OF : 1965 DICTATING [...] Jacky Hensley DO 08/24/17 00:10 JOB #: [id number] Transcribed By: nathalie 08/24/17 08:15 Electronically signed by: ANAI Hensley D.O. 08/25/17 03:55 Page 2 of 2 RAMSES BRADSHAW Emergency Room Report ACETAMINOPHEN Collected: 08/23/2017 Status: F [facility] REPOSITORY TYPE CODE TESTS RESULT OUT OF REFERENCE UNITS RANGE LAB ACETAMINOP 10.0 - 20.0 ug/mL HEN(LOINC) ACETAMINOPHEN High Alert 22.7 Result Comment: { CALLED TO ER AT 2220 RA 2218 { READ BACK BY DANETTE LOCKHART Performed By: #### [id number] #### [facility],[address] [place], [place] [address] URINALYSIS Collected: 08/23/2017 Status: F Source: [place]ACK[place] 7:55 PM [facility] REPOSITORY TYPE CODE TESTS RESULT OUT OF [...] ) NORMAL NORM Urobilinog LAB Sp NORMAL: [place](LOINC) 1.010-1.030 Sp 1.010 [place] LAB Nitrite(LOINC) NORMAL: NEGATIVE Nitrite NEG LAB [...] LAB Yeast(LOINC) Yeast NONE Performed By: #### [id number] #### [place] [address] DRUG SCREEN URINE Collected: 08/23/2017 Status: F Source: [facility] MEDIC 7:55 PM [facility] REPOSITORY TYPE CODE TESTS RESULT OUT OF [...] TO VERIFY POSITIVE RESULTS. Performed By: #### [id number] #### [place] [id number] CBC Collected: 08/23/2017 Status: F Source: [facility] 7:50 PM [facility] REPOSITORY TYPE CODE TESTS RESULT OUT OF [...] x10EE3/U L Neut # High 7.40 LAB Nicholas #(LOINC) 0.20 - 1.00 x10EE3/U L Nicholas # 0.50 LAB EO #(LOINC) 0.00 - 0.50 x10EE3/U L EO # 0.30 LAB Baso #(LOINC) 0.00 - 0.10 x10EE3/U L Baso # 0.00 LAB MANUAL DIFF(LOINC) MANUAL DIFF N/A LAB MORPHOLOGY(LOINC ) MORPHOLOGY N/A Result Comment: {CD] Performed By: #### [id number] #### [facility],[address] [place], [place] [id number] LIPASE Collected: 08/23/2017 Status: F Source: [facility] 7:50 PM [facility] REPOSITORY TYPE CODE TESTS RESULT OUT OF REFERENCE UNITS RANGE LAB LIPASE(LOIN 18.0 - 51.0 U/L C) LIPASE 41.0 Performed By: #### [id number] #### [facility],[address] [place] [address] CMP WITH EGFR Collected: 08/23/2017 Status: F Source: [facility] 7:50 PM [facility] REPOSITORY TYPE CODE TESTS RESULT OUT OF [...] OF AGE AND OLDER. Performed By: #### [id number] #### [facility],[address] [place], [place] [address] ACETAMINOPHEN Collected: 08/23/2017 Status: F Source: [facility] 7:50 PM [facility] REPOSITORY TYPE CODE TESTS RESULT OUT OF REFERENCE UNITS RANGE LAB ACETAMINOP 10.0 - 20.0 ug/mL HEN(LOINC) ACETAMINOPHEN High Alert 40.6 Result Comment: { CALLED TO ER AT 2057 { READ BACK BY ROBYN LOCKHART Performed By: #### [id number] #### [facility],[address] [place], [place] [address] EMERGENCY DEPARTMENT Observed: 08/22/2017 Status: F Source: [place] SUMMARY 11:18 PM [facility] Medical Records Department [address] [place] [address] Emergency Department Summary 08/22/17 1633 MR#: [id number] Acct: [id number] Name: RAMSES BRADSHAW Rep #: [id number] : 1965 52 From: Debi Amaya MD [...] mechanical fall This note was generated with [employer] dictation software. It may contain incorrect words, [...] your Primary Care Provider. Call [facility] ([phone]) or report to the closest Emergency Room. Call 911 if necessary. 08/22/17 4461 <Electronically signed by Debi Amaya MD> Date Debi Amaya MD Cosigner Signature (If Indicated): Date CC: Gee Leon MD CBC W/DIFF, AUTOMATED Collected: 08/22/2017 Status: F Source: [place] 7:45 PM [facility] TYPE CODE TESTS RESULT OUT OF [...] Lymph 3.02 Performed By: #### L100.0100 #### [facility] [place], [place], [address] BASIC METABOLIC Collected: 08/22/2017 Status: F Source: [place] PROFILE (BMP) 7:45 PM [facility] TYPE CODE TESTS RESULT OUT OF [...] 8 Performed By: #### L500.2500, L501.4010 #### [facility] [address] [place], [place], [address] TROPONIN-I Collected: 08/22/2017 Status: F Source: [place] 7:45 PM [facility] TYPE CODE TESTS RESULT OUT OF RANGE REFERENCE UNITS LAB L501.4010 <0.045 ng/mL Normal < 0.015 TROPONIN-I Result Comment: TROPONIN-I EXPECTED VALUES <0.045 Negative 0.045 - 0.590 Consistent with Cardiac Damage > OR = 0.600 Critical Value Not every elevated troponin is indicative of NC. These values should be used with clinical judgement in examining the patient's clinical picture for diagnosis. To establish a diagnosis of NC versus myocardial injury, there must be a demonstrated rise and/or fall in the troponin values, in addition to ischemic symptoms, EKG changes, new regional wall motion abnormality, and/or angiographical evidence. PLEASE NOTE: REFERENCE RANGES EDITED 17 Performed By: #### L500.2500, L501.4010 #### [facility] [address] [place], [address] ABDOMEN/PELVIS W IV CONT Observed: 08/22/2017 Status: F Source: [place] ONLY 4:32 PM [facility] Imaging Services [address] [place] [address] Abdomen/Pelvis W IV Cont ONLY MR#: [id number] Acct: [id number] Name: RAMSES BRADSHAW Rep #: [id number] : 1965 F 52 From: Mainor Trujillo MD PCP: Gee Leon MD Status: REG ER Study: Abdomen/Pelvis W IV Cont ONLY Date of Exam: 08/22/17 Exam# [id number] Ordering Dr: Debi Amaya MD STUDY: CT [...] CC: Debi Amaya MD; Gee Leon MD Financial Reserve Clerk: Signed HIP 2-3 VIEWS WITH Observed: 08/22/2017 Status: F Source: [place] PELVIS 4:32 PM [facility] Imaging Services [address] [place] [address] Hip 2-3 Views with Pelvis MR#: [id number] Acct: [id number] Name: RAMSES BRADSHAW Rep #: [id number] : 1965 F 52 From: Mainor Trujillo MD PCP: Gee Leon MD Status: REG ER Study: Hip 2-3 Views with Pelvis Date of Exam: 08/22/17 Exam# [id number] Ordering Dr: Debi Amaya MD STUDY: X-RAY [...] CC: Debi Amaya MD; Gee Leon MD Financial Reserve Clerk: Signed RIBS UNI MIN 3V Observed: 08/22/2017 Status: F Source: [place] W/PA CHEST 4:32 PM [facility] Imaging Services [address] [place] [address] Ribs Uni Min 3V w/PA Chest MR#: [id number] Acct: [id number] Name: RAMSES BRADSHAW Rep #: [id number] : 1965 F 52 From: Mainor Trujillo MD PCP: Gee Leon MD Status: REG ER Study: Ribs Uni Min 3V w/PA Chest Date of Exam: 08/22/17 Exam# [id number] Ordering Dr: Debi Amaya MD STUDY: X-RAY [...] position. Normal size heart. Normal mediastinum and archana. [...] CC: Debi Amaya MD; Gee Leon MD Financial Reserve Clerk: Signed OBSOLETE Observed: 07/25/2017 Status: COMPLETED Source: [place] 12:00 AM [facility] OTHER [facility] REPOSITORY Refill (AGGENS1) RAMSES BRADSHAW ([id number]) 1965 F Date Time Provider Department 07/25/17 [...] Vomiting Date Reviewed: 07/02/2017 Reviewed by: Heike ([facility]) July - Fully Assessed Reason for Visit: Refill [...] Status:Closed by GIOVANNI HERNÁNDEZ MD on 07/25/17 CNPN Observed: 06/27/2017 Status: COMPLETED Source: [place] 12:00 AM [facility] OTHER [facility]AMPUS REPOSITORY Telephone (AGCARDWST) RAMSES BRADSHAW ([id number]) 1965 F Date Time Provider Department 06/27/17 [...] back up again MD Brian Núñez Emily ([facility]) 06/27/2017 3:37 PM Signed Attempted to reach patient, phone cut out.DERIC Shrestha Emily ([facility]) 06/27/2017 3:53 PM Signed Patient notified of [...] 06/27/17 OBSOLETE Observed: 06/20/2017 Status: COMPLETED Source: [place] 12:00 AM [facility] OTHER [facility]AMPUS REPOSITORY Refill (AGGENS1) RAMSES BRADSHAW ([id number]) 1965 F Date Time Provider Department 06/20/17 [...] 06/20/17 PROGRESS Observed: 06/18/2017 Status: COMPLETED Source: [place] 8:34 AM [facility] OTHER CAMPUS REPOSITORY HNO ID: [id number] Author: Giovanni Hernández Service: (none) Author Type: [...] Depression - Hypertension - Hypothyroid - 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 pacemaker checked at [facility] - Sick sinus syndrome (HCC) - Sleep apnea uses cpap at night PAST SURGICAL HISTORY Procedure Laterality Date - APPENDECTOMY - CARPAL TUNNEL left - HYSTERECTOMY HX - LAPAROSCOPY DIAGNOSTIC - PACEMAKER (PM) 2003 - PAST SURGICAL HISTORY OF lumbar pain injections. - [place] ANESTH,LUMBAR SPINE,CORD SURGERY 02/07/2016 L4-L5 fusion; [facility] - REVISE ULNAR [...] Drug use: No Comment: Heavy EtOH use johana2000. 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 pacemaker checked at [facility] - Sick sinus syndrome (HCC) - Sleep apnea uses cpap at night PAST SURGICAL HISTORY Procedure Laterality Date - APPENDECTOMY - CARPAL TUNNEL left - HYSTERECTOMY HX - LAPAROSCOPY DIAGNOSTIC - PACEMAKER (PM) 2003 - PAST SURGICAL HISTORY OF lumbar pain injections. - [place] ANESTH,LUMBAR SPINE,CORD SURGERY 02/07/2016 L4-L5 fusion; [facility] [place] - REVISE ULNAR NERVE AT ELBOW bilateral- [...] Drug use: No Comment: Heavy EtOH use [facility] 2000. 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 [...] OPERATIVE NO Observed: 06/13/2017 Status: COMPLETED Source: [place] 12:00 AM CLINIC OTHER CAMPUS REPOSITORY HNO ID: [id number] Author: Giovanni Hernández Service: General Surgery Author Type: Physician Type: Operative Report Filed: 06/17/2017 4:27 PM Note Text: [facility] - Operative Report SURGEON: Giovanni Hernández MD PATIENT NAME: RAMSES BRADSHAW CSN: [id number] DATE OF SURGERY: 05/30/2017 DATE OF : 1965 SEX/AGE: F/51 PATIENT TYPE: I HOSP SVC: GEN LOCATION: [id number] DATE OF SURGERY: 05/30/2017 SURGEON: Giovanni Hernández [...] the stomach with multiple fires of the Quartzy-JOAN purple load stapler. After this, a repeat [...] at the umbilical port site with a kbuhhj-di-oxofh 0 Vicryl suture. We closed the remainder [...] contaminated. Giovanni Hernández MD General Surgery NSA:modl /[id number] OBSOLETE Observed: 06/13/2017 Status: COMPLETED Source: [place] 12:00 AM CLINIC OTHER CAMPUS REPOSITORY Refill (AKPRAD) RAMSES BRADSHAW ([id number]) 1965 F Date Time Provider Department 06/13/17 [...] Vomiting Date Reviewed: 06/01/2017 Reviewed by: Margoth (Carmela) CARMELA Harrison - Fully Assessed Reason for [...] 07/02/17 OBSOLETE Observed: 06/11/2017 Status: COMPLETED Source: [place] 12:00 AM CLINIC OTHER [place] REPOSITORY Refill (AGGENS1) RAMSES BRADSHAW ([id number]) 1965 F Date Time Provider Department 06/11/17 [...] 06/11/17 CNDS Observed: 06/01/2017 Status: COMPLETED Source: [place] 5:32 PM CLINIC OTHER CAMPUS REPOSITORY O ID: [id number] Author: Butch Orourke Service: General Surgery Author [...] patient. PROGRESS Observed: 06/01/2017 Status: COMPLETED Source: [place] 10:07 AM [facility] REPOSITORY [facility] ID: [id number] Author: Gustabo Lewis Service: General Surgery Author Type: Resident Type: Progress Notes Filed: 06/01/2017 10:10 AM Note Text: Attestation signed by Radu Cam at 06/01/2017 1:02 PM I saw and evaluated the patient. I reviewed the resident's note and agree. Radu Cam MD, [facility], [facility] PROGRESS NOTE Surgery Progress Note SERVICE DATE: [...] Date 05/31/17 0700 - 06/01/17 0659 06/01/17 0700 - 06/02/17 0659 Shift 4029-9797 6541-9977 1321-3678 24 Hour Total 3877-3244 7258-7444 5753-5342 24 Hour Total I N T A K E PO 851 746 4277 PO 521 705 3242 IV 006 796 4043 1905 D5 LR 275 392 7782 1905 Shift Total 707 612 5159 3045 O U T P U T Urine 750 223 183 5527 Void (ml) 450 200 250 900 Tube Output ([REMOVED] Indwelling Urinary Catheter 05/30/17 Sommer 16 Fr 05/31/17 0700) 300 300 Shift Total 750 060 355 5779 Weight (kg) 78.5 78.5 78.5 78.5 78.5 [...] June 01, 2017 TIME: 10:08 AM PAGER: [phone] HEMOGRAM/DIFF Collected: 06/01/2017 Status: F Source: [facility] 3:34 AM HEALTH SYSTEM REPOSITORY TYPE CODE [...] LAB MONON(LOIN 0.27-0.70 thou/cmm C) Abs. High Nicholas 0.86 LAB EOSN(LOINC 0.00-0.31 thou/cmm ) Abs. High Eosin 0.38 LAB BASON(LOIN 0.01-0.08 thou/cmm C) Abs. Baso 0.06 Performed By: #### CBCD1 #### [place] [address] BASIC PANEL Collected: 06/01/2017 Status: F Source: [facility] 3:34 AM HEALTH SYSTEM REPOSITORY TYPE CODE [...] Gap 8 Performed By: #### P8 #### [facility] [address] [place], [place] [address] MDRD GFR Collected: 06/01/2017 Status: F Source: [facility] 3:34 AM HEALTH SYSTEM REPOSITORY TYPE CODE TESTS RESULT OUT OF RANGE REFERENCE UNITS LAB GFRFN(LOINC >60mL/min/1.73m ) 2 eGFR >60 Result Comment: If the patient is , multiply the result by 1.210. Performed By: #### GFR #### [facility] [address] [place], [place] [address] CASE MGT INIT Observed: 05/31/2017 Status: COMPLETED [facility] OTHER CAMPUS REPOSITORY HNO ID: [id number] Author: Kam SalcidoRn) CARMELA Norman Service: Care Management Author Type: Registered Nurse Type: Care Mgt Initial Assessment Filed: 05/31/2017 12:49 PM Note Text: CARE MANAGEMENT: ASSESSMENT AND DISCHARGE PLAN SERVICE DATE: 05/31/2017 SERVICE TIME: 1145 PRIMARY CARE PHYSICIAN: Gee Leon MD ADMISSION STATUS: Inpatient Needs Prior to Discharge: None;To Be Determined MEDICAL: Patient/Quiller Hand Stated Goals: To have reduction in pain [...] None Has the Patient Been in a Alf Facility in the Past 30 days? No [...] 0 I feel financially burdened by my wgs-uf-ycdpce expenses for my prescription medication: Disagree completely [...] 31, 2017 TIME: 12:46 PM PAGER/CONTACT #: [phone] CASE MANAGEM Observed: 05/31/2017 Status: COMPLETED Source: [place] 8:29 AM CLINIC OTHER CAMPUS REPOSITORY O ID: [id number] Author: Kam Demarco) CARMELA Norman Service: Care [...] 31, 2017 TIME: 8:29 AM PAGER/CONTACT #: [phone] PROGRESS Observed: 05/31/2017 Status: COMPLETED Source: [place] 6:14 AM [facility] REPOSITORY [facility] ID: [id number] Author: Coco Jules Service: General Surgery Author [...] 0659 05/31/17 0700 - 06/01/17 0659 Shift 6657-7602 0214-2695 4774-1442 24 Hour Total 6987-6840 5507-6281 9037-1656 24 Hour Total I N T A [...] May 31, 2017 TIME: 6:14 AM Pager: [phone] HEMOGRAM/DIFF Collected: 05/31/2017 Status: F Source: [facility] 5:14 AM HEALTH SYSTEM REPOSITORY TYPE CODE [...] LAB MONON(LOIN 0.27-0.70 thou/cmm C) Abs. High Nicholas 0.97 LAB EOSN(LOINC 0.00-0.31 thou/cmm ) Abs. Eosin 0.00 LAB BASON(LOIN 0.01-0.08 thou/cmm C) Abs. Baso 0.04 Result Comment: Smear scanned; tech agrees with automated differential Performed By: #### CBCD1 #### [facility] [address] [place] [id number] BASIC PANEL Collected: 05/31/2017 Status: F Source: [facility] 5:14 AM HEALTH SYSTEM REPOSITORY TYPE CODE [...] Gap 10 Performed By: #### P8 #### [facility] [address] [place] [address] HEPATIC PANEL Collected: 05/31/2017 Status: F Source: [facility] 5:14 AM HEALTH SYSTEM REPOSITORY TYPE CODE [...] Bilirubin 0.10 Performed By: #### HEPAP #### [place] [address] MDRD GFR Collected: 05/31/2017 Status: F Source: [facility] 5:14 AM HEALTH SYSTEM REPOSITORY TYPE CODE TESTS RESULT OUT OF RANGE REFERENCE UNITS LAB GFRFN(LOINC >60mL/min/1.73m ) 2 eGFR >60 Result Comment: If the patient is , multiply the result by 1.210. Performed By: #### GFR #### [place] [address] ANES POST Observed: 05/30/2017 Status: COMPLETED Source: [place] 6:58 PM [facility] OTHER CAMPUS REPOSITORY HNO ID: [id number] Author: Israel Pepper Service: Anesthesiology Author Type: Physician Type: Anesthesia PostOp Filed: 05/30/2017 6:59 PM Note Text: POST ANESTHESIA EVALUATION NOTE SERVICE DATE: 05/30/2017 SERVICE TIME: 6:58 PM : 1965 Vitals: 05/30/17 1305 05/30/170 Temp: 36.9 ?C (98.4 ?F) 37.7 ?C (99.9 ?F) 05/30/17 1710 05/30/17 1715 05/30/17 1730 05/30/17 174 BP: 115/80 111/65 129/71 142/71 05/30/17 1715 05/30/17 1730 05/30/17 17405/30/17 1800 Pulse: 73 64 (!) 56 65 05/30/17 1715 05/30/17 1730 05/30/17 1745 05/30/17 1800 Resp: 17 14 12 15 05/30/17 17105/30/17 17305/30/17 17405/30/17 1800 SpO2: 94% 93% 97% 98% Validated [...] OP NOT Observed: 05/30/2017 Status: COMPLETED Source: [place] 5:10 PM [facility] OTHER CAMPUS REPOSITORY O ID: [id number] Author: Coco Jules Service: General Surgery Author Type: Resident Type: Brief Op Note Filed: 05/30/2017 5:29 PM Note Text: BRIEF OPERATIVE / PROCEDURE NOTE LOG ID: [id number] Surgery/Procedure Date: 05/30/2017 Incision/Procedure Start Time: 2:38 PM Incision Close/Procedure End Time: 5:02 PM Surgeon(s)/Proceduralist(s) and Carpet Measurer(s): Surgeon(s) and Role: * Giovanni Hernández - Primary * Coco Jules - Resident [...] 30, 2017 TIME: 5:10 PM PAGER/CONTACT #: [phone] NURSING PROG Observed: 05/30/2017 Status: COMPLETED Source: [place] 4:13 PM [facility] REPOSITORY HNO ID: [id number] Author: Sharmaine SalcidoRn) CARMELA Schmidt Service: (none) Author Type: Registered Nurse Type: Nursing Progress Note Filed: 05/30/2017 4:14 PM Note Text: Nursing Progress Note Patient Name: Ramses Bradshaw Patient Location: AK-OR/AK-OR Daily Note:Family notified of case status at this time. 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 pacemaker checked at [facility] - Sick sinus syndrome (HCC) - Sleep apnea uses cpap at night PAST SURGICAL HISTORY Procedure Laterality Date - APPENDECTOMY - CARPAL TUNNEL left - HYSTERECTOMY HX - LAPAROSCOPY DIAGNOSTIC - PACEMAKER (PM) 2003 - PAST SURGICAL HISTORY OF lumbar pain injections. - [place] ANESTH,LUMBAR SPINE,CORD SURGERY 02/07/2016 L4-L5 fusion; [facility] [place] - REVISE ULNAR NERVE AT ELBOW bilateral- [...] May 30, 2017 TIME: 12:42 PM CSN: [id number] GLUCOSE METER Collected: 05/30/2017 Status: F Source: [facility] 12:08 PM HEALTH SYSTEM REPOSITORY TYPE CODE TESTS RESULT OUT OF REFERENCE UNITS RANGE LAB GLUBL(LOINC 70-99 mg/dL ) High Glucose Meter 102 Result Comment: RN NOTIFIED Performed By: #### GLMET #### [place] [address] SURGICAL TISSUE EXAM Observed: 05/30/2017 Status: F Source: [facility] 12:00 AM HEALTH SYSTEM REPOSITORY Test performed at [place] [address] NAME: RAMSES BRADSHAW REQUESTING: GIOVANNI HERNÁNDEZ MD COPY TO: TUMOR REGISTRY; VISUAL STYLIST FINAL DIAGNOSIS: A) STOMACH, PARTIAL GASTRECTOMY - [...] mass; 7 - tissue away from mass. ATP:m B) Gallbladder Received in formalin labeled gallbladder [...] is 0.1 to 0.2 cm in thickness. Quiller Hand sections are submitted in one cassette. BMP:je MOLINA M.D., PATHOLOGIST (Electronic signature on file) Signed out: 06/04/2017 10:52 PRINTED: 06/04/2017 Page 1 of 1 Performed By: #### SURG #### [facility] [address] [place] [address] ANES PREOP Observed: 05/29/2017 Status: COMPLETED Source: [place] 1:25 PM CLINIC OTHER CAMPUS REPOSITORY HNO ID: [id number] Author: Alice Ruggiero APRN.CNP Service: General Surgery Author Type: Nurse Practitioner Type: Anesthesia PreOp Filed: 05/29/2017 1:25 PM Note Text: Or control desk notified of pacemaker SURGERY VISIT REPORT Observed: 05/29/2017 Status: F Source: [place] 9:30 AM [facility] On [place] [address] OFFICE VISIT Date of Service: 05/22/17 MR#: [id number] Acct: [id number] Name: RAMSES BRADSHAW Rep #: [id number] : 1965 Provider: Clarissa Casas MD Age/Sex: 51/F Location: [facility] Status: Signed Intake Intake Visit Reasons: EXCISION OF CHEST LESION Curriculum Advisory Teacher Required: No Is patient in pain?: No [...] having her gastric neuroendocrine tumor excised at [facility] with Dr. Hernández on May 30, 2017. Exam Const General: cooperative, comfortable, no acute distress Skin Other: Right medial breast near sternum, 7 mm x 7 mm raised dome-shaped skin lesion present, no changes surrounding skin, nontender Office Procedures 63806 2.1-3 cm T/A/L Performed By: Procedure performed [...] patient as well. Clarissa Casas M.D. Pager: [phone] [facility] [address] [place] [address], [address] [place] [address] Office: [phone] Orders Orders: Plan Detail Follow Up 2 Weeks Coding Level of Care Code No Charge Diagnoses Skin lesion of breast N64.9 Comment [id number] 05/29/17 0930 <Electronically signed by Clarissa Casas MD> Date Clarissa Orrigner Signature: Date (if applicable) CC: Gee Leon MD OPERATIVE REPORT Observed: 05/24/2017 Status: F Source: [place] 9:48 AM [facility] Medical Records Department [address] [place] [address] Operative Report 05/20/17 1515 MR#: [id number] Acct: [id number] Name: RAMSES BRADSHAW Rep #: [id number] : 1965 51 From: Clarissa Casas MD PCP: Gee Leon MD Status: [facility] Y Location: EN Report of Operation Date [...] (CHOOSE SITE) Observed: 05/22/2017 Status: F Source: [place] 1:00 PM [facility] Patient: RAMSES BRADSHAW : 1965 (51/F) Acct Num: [id number] Phys: Damon GAUTAM,Page [facility] Unit Num: [id number] Loc: LABSPEC Specimen: [id number] Received: 05/22/17 - 1723 Spec Type: Lesion TISSUES TISSUES: Skin of breast, NOS COMMENT This case was discussed with Dr. Casas 05/24/17 at 11:15 a.m. and 05/27/17 at 11:50pm by Dr. Gibbons Immunohistochemistry ([id number]) supports the above diagnosis. Case has been reviewed in consultation with Dr. Wiley who concurs with the above diagnosis. IDC:YOUSIF GROSS DESCRIPTION Received in fixative is one [...] the lesion. / SJ:marty 05/23/17 TC:1 CPT: 95631 HEADER OPERATION: Excision of right chest/breast lesion PRE-OP DIAGNOSIS: History gastric neuroendocrine tumor, ? [place] cell TISSUE SUBMITTED: Right medial breast, skin lesion MICROSCOPIC DESCRIPTION Slides are reviewed. 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 AM:marty 05/24/17 Signed Hermelindo Gibbons 05/27/17 <signature on file> Performed By: #### PLES #### [facility] [place], [address] IMMUNOHISTOCHEMISTRY Observed: 05/22/2017 Status: F Source: [place] [address]:00 AM [facility] Patient: RAMSES BRADSHAW : 1965 (51/F) Acct Num: [id number] Phys: Clarissa Casas MD Unit Num: [id number] Loc: LABSPEC Specimen: [id number] Received: 05/24/17 - 1449 Spec Type: IMMUNO TISSUES TISSUES: Skin of breast, NOS SPECIMEN INFORMATION: Tissue Source: Right medial breast, skin lesion Clinical Info: History gastric neuroendocrine tumor, ? [place] cell Specimen Number: [id number] #3 CPT code: 66627, 87285 x8 METHODOLOGY: Deparaffinized sections of prefer/formalin-fixed tissue [...] developed and their performance characteristics determined by [facility]. They may not have been cleared or approved by the U.S. Food and Drug Administration. The FDA has determined that such clearance or approval is not necessary. INTERPRETATION: Right medial breast, skin lesion: Consistent with capillary hemangioma. AM:marty 05/27/17 PHYSICIAN AND INSTITUTION [address] [address] Signed Hermelindo Shai 05/27/17 <signature on file> Performed By: #### PIMM #### [facility] [address] [place] [address], [id number] HGB Collected: 05/21/2017 Status: F Source: [facility] 9:25 AM HEALTH SYSTEM REPOSITORY TYPE CODE TESTS RESULT OUT OF RANGE REFERENCE UNITS LAB HGBI(LOINC) 11.2-15.7 g/dL Hgb 13.8 Performed By: #### HGBI #### [facility] [address] [place] [address] HCT Collected: 05/21/2017 Status: F Source: [facility] 9:25 AM HEALTH SYSTEM REPOSITORY TYPE CODE TESTS RESULT OUT OF RANGE REFERENCE UNITS LAB HCTI(LOINC) 34.1-44.9 % Hct 42.0 Performed By: #### HCTI #### [facility] [address] [place] [address] TYPE AND SCREEN Collected: 05/21/2017 Status: F Source: [facility] 9:05 AM HEALTH SYSTEM REPOSITORY TYPE CODE TESTS RESULT OUT OF REFERENCE UNITS RANGE LAB ABO(LOINC) B ABO Group LAB SENIOR ORACLE ADF DEVELOPER(LOINC ) RH Type Negative LAB ABSCR(LOIN C) Antibody NEGATIVE Screen LAB BBCMT(LOIN C) Comment PAT specimen Performed By: #### T&S #### [facility] [address] [place] [address] HISTORY PHYSICAL Observed: 05/21/2017 Status: COMPLETED Source: [place] 8:37 AM CLINIC OTHER CAMPUS REPOSITORY HNO ID: [id number] Author: Kareen Harding (Public Health Engineer) Ronn Service: (none) Author Type: Nurse Practitioner Type: [...] Depression - Hypertension - Hypothyroid - 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 pacemaker checked at [facility] - Sick sinus syndrome (HCC) - Sleep apnea uses cpap at night PAST SURGICAL HISTORY Procedure Laterality Date - APPENDECTOMY - CARPAL TUNNEL left - HYSTERECTOMY HX - LAPAROSCOPY DIAGNOSTIC - PACEMAKER (PM) 2003 - PAST SURGICAL HISTORY OF lumbar pain injections. - [place] ANESTH,LUMBAR SPINE,CORD SURGERY 02/07/2016 L4-L5 fusion; [facility] [place] - REVISE ULNAR NERVE AT ELBOW bilateral- [...] Drug use: No Comment: Heavy EtOH use [facility] 2000. 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 Drinks 2 [...] NURSING PROG Observed: 05/20/2017 Status: COMPLETED Source: [place] 2:00 PM CLINIC OTHER CAMPUS REPOSITORY HNO ID: [id number] Author: Charu (Carmela) CARMELA Barillas Service: (none) Author Type: Registered Nurse Type: Nursing Progress Note Filed: 05/20/2017 2:08 PM Note Text: PER DEVICE CLINIC RECOMMENDATION (KAM/CARMELA): USE MAGNET WITH CAUTERY IF NEEDED. SURGERY VISIT REPORT Observed: 05/20/2017 Status: F Source: [place] 1:11 PM [facility] [place] [address] [place] [address] OFFICE VISIT Date of Service: 05/17/17 MR#: [id number] Acct: [id number] Name: RAMSES BRADSHAW Rep #: [id number] : 1965 Provider: Clarissa Casas MD Age/Sex: 51/F Location: [facility] Status: Signed Intake Vital Signs05/17/17 Height 5 ft 2.5 in 05/17/17 Weight: 180 lb 12.465 oz 05/17/17 Body Mass Index (BMI) 32.5 Intake Visit Reasons: discuss c-scope Curriculum Advisory Teacher Required: No Is patient in pain?: Yes [...] of stomach- surgery scheduled May 30 at [facility] with Dr. Ali. [facility] Gastrointestinal: Yes [...] dose second day. Clarissa Casas M.D. Pager: [phone] [facility] [address] [place] [address], [address] [place] [address] Office: [phone] Orders Orders: Plan Detail Follow Up 1 ( will schedule colonoscopy) Coding Level of Care Code Off vis,est,level 3 Diagnoses Bleeding per rectum K62.5 05/20/17 1311 <Electronically signed by Clarissa Casas MD> Date Clarissa Casas MD Cosigner Signature: Date (if applicable) CC: Gee Leon MD PROGRESS Observed: 05/20/2017 Status: COMPLETED Source: [place] 12:18 PM CLINIC OTHER CAMPUS REPOSITORY HNO ID: [id number] Author: Beba Demarco) CARMELA Sung Service: (none) Author Type: Registered Nurse Type: Progress Notes Filed: 05/20/2017 12:20 PM Note Text: PT. HAS A PACEMAKER ; PACER INFORMATION OBTAINED FROM [facility] AND FAXED TO [facility] DEVICE [facility], AWAITING RECOMMENDATION PROGRESS Observed: 05/20/2017 Status: COMPLETED Source: [place] 1:01 AM CLINIC OTHER CAMPUS REPOSITORY HNO ID: [id number] Author: Giovanni Hernández Service: (none) Author Type: Physician Type: Progress Notes Filed: 05/20/2017 1:04 AM Note Text: Patient referred by: [facility] [place] [address] [facility] [address] Patient presents with: Follow Up HPI: This [...] [place] ANESTH,LUMBAR SPINE,CORD SURGERY 02/07/2016 L4-L5 fusion; [facility] - REVISE ULNAR [...] Drug use: No Comment: Heavy EtOH use johanali 2000. 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 Drinks 2 [...] will refer her for colonoscopy back to [facility]. We will tentatively plan on a [...] BIOPSY (CHOOSE Observed: 05/20/2017 Status: F Source: [facility]) 12:00 AM [facility] Patient: RAMSES BRADSHAW : 1965 (51/F) Acct Num: [id number] Phys: Damon GAUTAM,Clarissa Unit Num: [id number] Loc: EN Specimen: [id number] Received: 05/20/17 - 2983 Spec Type: COLON BX TISSUES TISSUES: POLYP GROSS DESCRIPTION Received in fixative is one container labeled with the patient's name and designated distal transverse colon polyp. The specimen consists of two irregular fragments of light aburto soft tissue that in aggregate measure 0.3 x 0.3 x 0.1 cm. The specimen is totally submitted in one cassette. / AM:marty 05/21/17 TC:1 CPT: 11855 HEADER OPERATION: Colonoscopy PRE-OP DIAGNOSIS: Screening TISSUE SUBMITTED: Distal transverse polyp biopsy MICROSCOPIC DESCRIPTION Slides are reviewed. MICROSCOPIC DIAGNOSIS Distal transverse colon polyp, biopsy: Hyperplastic polyp. SJ:marty 05/22/17 Signed Kam Wiley 05/22/17 <signature on file> Performed By: #### PCOLBX #### [facility] [address] [place], [address] HOSP Observed: 05/15/2017 Status: COMPLETED Source: [place] 12:00 AM CLINIC OTHER CAMPUS REPOSITORY Patient:Ramses Bradshaw MRN: <[id number]> Height:5' 2(1.575 m) Weight:173 lb (78.472 kg) [...] 44.9 34.1 Progress Notes (PRE SURG TESTING [facility]): Beba Sung, RN, RN 05/20/2017 12:20 PM Signed PT. 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 pacemaker checked at [facility] - Sick sinus syndrome (HCC) - Sleep apnea uses cpap at night PAST SURGICAL HISTORY Procedure Laterality Date - APPENDECTOMY - CARPAL TUNNEL left - HYSTERECTOMY HX - LAPAROSCOPY DIAGNOSTIC - PACEMAKER (PM) 2003 - PAST SURGICAL HISTORY OF lumbar pain injections. 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 Drinks 2 [...] will refer her for colonoscopy back to [facility]. 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 Drinks 2 [...] will refer her for colonoscopy back to [facility]. We will tentatively plan on a [...] Giovanni Hernández MD Referring Provider: GIOVANNI HERNÁNDEZ [[id number]] Allergies As of Date: 05/14/2017 Noted Allergy Reaction ASA (SALICYLATES) 11/14/2004 ERYTHROMYCIN 11/14/2004 IBUPROFEN 11/14/2004 LATEX 06/30/2010 16 - Unknown NSAIDS (NON-STEROIDAL ANTI-INFLAM*02/23/2014 6 - Diarrhea 11 - Vomiting Date Reviewed: 05/14/2017 Reviewed by: Pily [facility]cidoUniversity [facility] CenterDelma Gee - Fully Assessed Reason for Visit: Follow [...] 05/20/17 PROGRESS Observed: 05/01/2017 Status: COMPLETED Source: [place] 12:03 PM [facility] REPOSITORY HNO ID: [id number] Author: Lorie Fernandez Service: (none) Author Type: [...] W IVCON Observed: 05/01/2017 Status: F Source: [place] 10:53 AM [facility] REPOSITORY * * *Final Report* * * DATE OF EXAM: May 01 2017 10:53AM [facility] 0530 - CT ABD/PEL W IVCON / [...] findings on abdominal CT JACR 2010; 7:754 Financial Reserve Clerk: CHERIE Transcribe Date/Time: May 01 2017 3:53P Dictated by : FREDRICK GARCIA DO This examination was interpreted and the report reviewed and electronically signed by: FREDRICK GARCIA DO on May 01 2017 3:57PM EST [id number] CNCO Observed: 04/23/2017 Status: COMPLETED Source: [place] 12:00 AM CLINIC OTHER CAMPUS REPOSITORY Letter Text Giovanni Hernández MD [facility] [address] 1 [facility] [address] Dept: [phone] Dept April 23, 2017 Re: Ramses Bradshaw : [address] Farfan, This letter is to request CARDIAC clearance for the above named patient. Patient is scheduled for surgery on: PENDING CLEARANCE Type of surgery to be performed is: Laparoscopic Cholecystectomy, Partal Laparoscopic Partial Gastrectomy and will be performed under general anesthesia. Thank you, Heike ([facility]) Any for Giovanni Hernández MD Maintenance Medications: OK to D/C blood thinner/anticoagulant type medications prior to surgery: ____Yes ____days before surgery ____No Patient is considered: ____Low Risk ____Intermediate Risk ____High Risk Reason: Signature of Physician Date Please fax back as soon as possible to above number CNPN Observed: 04/23/2017 Status: COMPLETED Source: [place] 12:00 AM CLINIC OTHER CAMPUS REPOSITORY Telephone (AGCARDWST) RAMSES BRADSHAW ([id number]) 1965 F Date Time Provider Department 04/23/17 [...] on 04-04 prior to a colonoscopy at [facility]. Selwyn Farfan MD 04/23/2017 2:11 PM Signed Signed. Please attach recent office visit note. MD Caridad Núñez MA 04/25/2017 12:12 PM Signed Form and copy of recent office note faxed to: [phone]. Caridad German MA Allergies As of Date: 04/23/2017 Noted Allergy Reaction ASA (SALICYLATES) 11/14/2004 ERYTHROMYCIN 11/14/2004 IBUPROFEN 11/14/2004 LATEX 06/30/2010 16 - Unknown NSAIDS (NON-STEROIDAL ANTI-INFLAM*02/23/2014 6 - Diarrhea 11 - Vomiting Date Reviewed: 04/22/2017 Reviewed by: Heike (Emilie) July - Fully Assessed Reason for Visit: Forms [...] CAP* Take 25 mg by mouth three lao* ABILIFY ORAL Take by mouth once daily. [...] 04/23/17 PROGRESS Observed: 04/22/2017 Status: COMPLETED Source: [place] 1:33 PM CLINIC OTHER CAMPUS REPOSITORY HNO ID: [id number] Author: Giovanni Hernández Service: (none) Author Type: Physician Type: Progress Notes Filed: 04/22/2017 2:30 PM Note Text: Patient referred by: Clarissa Casas MD [address] [place] [address] [facility] [address] HPI: This is a new patient consult [...] age 38[address] Farfan at [facility] for this. 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 Drinks 2 [...] visit: Most recent labs Outside chart from [facility] reviewed. A total of 45 minutes [...] I long discussion with her and her mophead trimmer and wrapper and told her that I would like [...] HIAA, URINE,RANDOM Collected: 04/22/2017 Status: F Source: [place] 12:43 PM [facility] REPOSITORY TYPE CODE TESTS RESULT OUT OF REFERENCE UNITS RANGE LAB UHIAAR 0.0-10.0 mg/g Creat HIAA, Ur, 2.8 Random Result Comment: This test was developed and its performance characteristics determined by [facility]'s [facility] Pathology and Laboratory Medicine [place] ([facility]). It has not been cleared or approved by the FDA. [facility] is regulated under CLIA as qualified to perform high-complexity testing. This test is used for clinical purposes. It should not be regarded as investigational or for research. Performed By: #### UHIAR2 #### [facility] [address] [place], [place] [address] COMP METABOLIC PANEL Collected: 04/22/2017 Status: F Source: [place] 12:39 PM [facility] REPOSITORY TYPE CODE TESTS RESULT OUT OF REFERENCE UNITS RANGE LAB TP 6.3-8.0 g/dL Protein, Total 8.0 LAB ALB 3.9-4.9 g/dL Albumin 4.3 LAB CA 8.5-10.2 mg/dL Calcium, Total 10.0 LAB TBIL 0.2-1.3 mg/dL Bilirubin, Total 0.3 LAB ALKP 32-117 U/L Alkaline Phosphatase 98 LAB AST 13-35 U/L AST 15 LAB GLU 74-99 mg/dL Glucose High 116 Result Comment: The [place] Diabetes Association (ADA) provides guidance for cutoff [...] Standards of Medical Care in Diabetes 2016, [place] Diabetes Association. Diabetes Care. 2016.39(Suppl 1). LAB [...] GFR. Performed By: #### CMP, CHROMA #### [facility] [address] [place], [place] [address] CHROMOGRANIN A Collected: 04/22/2017 Status: F Source: [place] 12:39 PM [facility] REPOSITORY TYPE CODE TESTS RESULT OUT OF REFERENCE UNITS RANGE LAB CHROMA <98 ng/mL Chromogranin A 84 Result Comment: This test is performed using the NeoCodex DNH-COHWL-OJ kit. Results obtained with different methods or kits cannot be used interchangeably. This test was developed and its performance characteristics determined by [facility]'s [facility] Pathology and Laboratory Medicine [place] ([facility]). It has not been cleared or approved by the FDA. -[facility] is regulated under CLIA as qualified to perform high-complexity testing. This test is used for clinical purposes. It should not be regarded as investigational or for research. Performed By: #### CMP, CHROMA #### [facility] [employer] [address] [place], [place] [address] RACHELLE Observed: 04/22/2017 Status: COMPLETED Source: [place] 11:00 AM CLINIC OTHER CAMPUS REPOSITORY Office Visit (AGGENS1) RAMSES BRADSHAW ([id number]) 1965 F Date Time Provider Department 04/22/17 11:00 AM GIOVANNI HERNÁNDEZ AGGENS1 During your visit today, we recorded the following information about you: Pulse Blood pressure Weight Height 69/minute 118/74 80.7 kg 1.575 m Giovanni Hernández MD 04/22/2017 2:30 PM Signed Patient referred by: Clarissa Casas MD [address] [facility] [address] [facility] [address] HPI: This is a new patient consult [...] age [address] Farfan at [facility] for this. 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 Drinks 2 [...] visit: Most recent labs Outside chart from [facility] reviewed. A total of 45 minutes [...] I long discussion with her and her mophead trimmer and wrapper and told her that I would like [...] Giovanni Hernández MD Referring Provider: CLARISSA CASAS [[id number]] Allergies As of Date: 04/22/2017 Noted Allergy Reaction ASA (SALICYLATES) 11/14/2004 ERYTHROMYCIN 11/14/2004 IBUPROFEN 11/14/2004 LATEX 06/30/2010 16 - Unknown NSAIDS (NON-STEROIDAL ANTI-INFLAM*02/23/2014 6 - Diarrhea 11 - Vomiting Date Reviewed: 04/22/2017 Reviewed by: Heike Agrawal) May - Fully Assessed Reason for Visit: New Patient Evaluation [154] Cmt: abdominal pain Primary Visit Diagnosis:Benign neuroendocrine tumor of stomach [D3A.092] Order(s):CHROMOGRANIN A [SQCHROMA] Order #: [id number] FUTURE COMP METABOLIC PANEL [SQCMP] Order #: [id number] FUTURE HIAA-5 RAND PANEL UR [SQUHIAR2] Order #: [id number] FUTURE CT ABD/PEL W IVCON [1333833] Order #: [id number] FUTURE [] iv contrast (radiology procedure)CT ABD/PEL [...] PANTOPRAZOLE 40 MG TABLET,DELAYED RELEASE >> [place] ([employer]) 04/22/2017 11:04 AM >> JULY SERVICE TRAINER, [place] SatApr 22, 2017 11:04 AM Received from: External Pharmacy Received Sig: TAKE ONE TABLET BY MOUTH DAILY SUCRALFATE 1 GRAM TABLET >> [place] ([employer]) 04/22/2017 11:04 AM >> JULY SERVICE TRAINER, [place] SatApr 22, 2017 11:04 AM Received from: External Pharmacy OXYCODONE 5 MG TABLET >> [place] ([employer] Manager) 04/22/2017 11:04 AM >> JULY SERVICE TRAINER, [place] SatApr 22, 2017 11:04 AM Received from: External Pharmacy Received Sig: TAKE ONE TABLET BY MOUTH FOUR TIMES DAILY OMEPRAZOLE MAGNESIUM 20 MG CAPSULE,DELAYED RELEASE >> [place] ([employer]oor [employer] Manager) 04/22/2017 11:03 AM >> JULY SERVICE TRAINER, [place] SatApr 22, 2017 11:03 AM No [...] Liver, Pancreas, Biliary Surgery General Surgery 1 [facility], [facility] [address] [place], [place] [address] [email or web address] 04/22/2017 Clarissa Casas MD [address] [place] [facility] [address] Re: Ramses Bradshaw : [address] [...] to expedite mailing) Encounter Status:Closed by GIOVANNI HERNÁNDEZ MD on 04/22/17 OFFICE VISIT REPORT Observed: 04/18/2017 Status: F Source: [place] 11:24 AM [facility] [address] [facility] [address] OFFICE VISIT Date of Service: 04/11/17 MR#: [id number] Acct: [id number] Patient: RAMSES BRADSHAW Rep #: [id number] : 1965 Provider: Imelda Hernandez Age/Sex: 51/F [place] [facility] [place]: Signed Comments Summary Comments: Dual Chamber Pacemaker Evaluation: New enrollee to device clinic. Interrogation shows no MS episodes or VHR episodes since last check 10/29/16. Left pectoral pocket/incision w/o s/s of infection or erosion. Pt offers no cardiac complaints. presenting rhythm shows NSR @ 65 bpm. Battery longevity approx 6.5 yrs. 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 Lead impedances, sensing and pace/sense thresholds remain stable. No parameter changes made. Counters cleared. Next f/u appt scheduled for in 6 mos. Report faxed to Dr. Yunior Farfan's office. Device Device Date Interviewed: 04/11/17 Follow-up Location: in office Interview Reason: scheduled follow up Refinery Operator Assistant: COTA Name: William KELLEY1 Model: [id number] Serial #: [id number] Implant Date: 04/03/13 Year(s): 4 Implant Physician: Dr. Samuel Keys Patient Characteristics Atrial Indication: sick sinus syndrome Underlying rhythm: Sinus rhythm Pacemaker Dependent: No Device Characteristics Device: Dual Chamber Type: Pacemaker Device Physical Exam Yes Incision well healed Leads Lead #1 Refinery Operator Assistant Lead 1: Guidant Model Lead 1: 4469 Serial# Lead 1: [id number] Date Implanted Lead 1: 06/02/03 Position Lead 1: RA Lead #2 Refinery Operator Assistant Lead 2: Youku Model Lead 2: 4470 Serial# Lead 2: [id number] Date Implanted Lead 2: 06/02/03 Position Lead [...] Status: F Source: [place] 12:11 PM [facility] [place] TYPE CODE TESTS RESULT OUT OF [...] 9 GAP Performed By: #### L500.4050 #### [facility] [address] [facility] [place], [place], [address] #### L3300.1800 #### [facility] (refer to report for specific site) refer to report for address and phone number GASTRIN, SERUM Collected: 04/12/2017 Status: F Source: [place] 12:11 PM [facility] [place] TYPE CODE TESTS RESULT OUT OF RANGE REFERENCE UNITS LAB L3300.1800 0-115 pg/mL High Gastrin, 266 Serum Result Comment: Siemens Kommerstate.ruulite 2000 Immunochemiluminometric assay (ICMA) Performed at: [address] [id number] Sound Engineering Technician: Jacky Dickens MD, Phone: [phone] Performed By: #### L500.4050 #### [facility] [address] [place], [place], [address] #### L3300.1800 #### [facility] (refer to report for specific site) refer to report for address and phone number CBC W/DIFF, AUTOMATED Collected: 04/12/2017 Status: F Source: [place] 12:11 PM [facility] [place] TYPE CODE TESTS RESULT OUT OF [...] Lymph 3.50 Performed By: #### L100.0100 #### [facility] [address] [place], [address] OPERATIVE REPORT Observed: 04/10/2017 Status: F Source: [place] 8:41 AM [facility] [place] [facility] Medical Records Department [address] [place] [address] Operative Report 04/08/17 1016 MR#: [id number] Acct: [id number] Name: RAMSES BRADSHAW Rep #: [id number] : 1965 51 From: Clarissa Casas MD PCP: Gee Leon MD Status: [facility] Y Location: EN Report of Operation Date [...] 04/08/2017 Status: F Source: [place] 12:00 AM [facility] [place] Patient: RAMSES BRADSHAW : 1965 (51/F) Acct Num: [id number] Phys: Clarissa Casas MD Unit Num: [id number] Loc: EN Specimen: [id number] Received: 04/09/17 - 1044 Spec Type: IMMUNO TISSUES TISSUES: B. Gastric fundus SPECIMEN INFORMATION: Tissue Source: B Fundic biopsy Clinical Info: Abdomen pain, gastric reflux Specimen Number: [id number] CPT code: 24451, 60204 x5 METHODOLOGY: Deparaffinized sections of prefer/formalin-fixed tissue [...] Synapto (polyclonal) positive CEA (11-7/TF-3HB-1) negative CK8 (27sirmX50) positive These tests were developed and their performance characteristics determined by [facility]. They may not have been cleared or approved by the U.S. Food and Drug Administration. The FDA has determined that such clearance or approval is not necessary. INTERPRETATION: B. Fundic biopsy: Consistent with neuroendocrine tumor. Case has been reviewed in consultation with Dr. Wiley who concurs with the above diagnosis. IDC:YOUSIF AM:marty 04/10/17 PHYSICIAN AND INSTITUTION [address] [address] Signed Hermelindo Shai 04/10/17 <signature on file> Performed By: #### PIMM #### [facility] [address] [place] [address]. [place], [place], [address] GASTRIC BIOPSY Observed: 04/08/2017 Status: F Source: [place] 12:00 AM [facility] [place] Patient: RAMSES BRADSHAW : 1965 (51/F) Acct Num: [id number] Phys: Clarissa Casas MD Unit Num: [id number] Loc: EN Specimen: [id number] Received: 04/08/17 - 1238 Spec Type: Gastric Bx TISSUES TISSUES: A. [...] who concurs with the above diagnosis. IDC:YOUSIF GROSS DESCRIPTION A - Received in fixative [...] one cassette. / AM:marty 04/08/17 TC:0 CPT: 66612 x3, 78403 HEADER OPERATION: EGD with biopsy PRE-OP DIAGNOSIS: abdomen pain, gastric reflux TISSUE SUBMITTED: A Antrum biopsy, B Biopsy fundic abnormal fold, C Biopsy GE junction MICROSCOPIC DESCRIPTION Slides are reviewed. MICROSCOPIC DIAGNOSIS A. Gastric antrum, biopsy: Minimal chronic inflammation. B. Gastric fundus, biopsy: Neuroendocrine tumor. See Comment. C. Gastroesophageal junction, biopsy: Mild chronic inflammation. AM:marty 04/09/17 Signed Hermelindo Shai 04/10/17 <signature on file> Performed By: #### PGASB #### [facility] [address] [place] [address]. [place], [address] PROGRESS Observed: 04/04/2017 Status: COMPLETED Source: [place] 2:39 PM CLINIC OTHER CAMPUS REPOSITORY HNO ID: [id number] Author: Selwyn Farfan Service: (none) Author Type: [...] N/A Beta aislinn for ASHD with prior NC or prior LVEF<40 (NQF 0070) - N/A [...] treatment plan. 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 Drinks 2 [...] MD CNOV Observed: 04/04/2017 Status: COMPLETED Source: [place] 2:30 PM CLINIC OTHER CAMPUS REPOSITORY Office Visit (AGCARDWST) RAMSES BRADSHAW ([id number]) 1965 F Date Time Provider Department 04/04/17 2:30 PM SELWYN FARFAN AGCRAISAWSSoha During your visit today, we recorded the following information about you: Pulse Blood pressure Weight Height 72/minute 162/112 79.9 kg 1.575 m Selwyn Farfan MD 04/04/2017 3:25 PM Signed PERTINENT CARDIAC HISTORY Syncope - multiple etiologies PPM - 2003, revised 2014 HL Chest pain PFO HTN ADHERENCE TO GUIDELINES DUSTIN-I or ARB for HF with prior LVEFANDlt;40 (NQF 0081) - N/A ASA or Plavix for ASHD (NQF 0067) - N/A Beta aislinn for ASHD with prior NC or prior LVEFANDlt;40 (NQF 0070) - N/A [...] treatment plan. 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 EAT A WHOLE FOOD, PLANT BASED [...] physician about programs in your area. Johny Valencia RN, RN 04/05/2017 8:28 AM Signed Copy of OV note mailed to Dr. Leon's office. Referring Provider: SELWYN FARFAN [[id number]] Allergies As of Date: 04/04/2017 Noted Allergy Reaction ASA (SALICYLATES) 11/14/2004 ERYTHROMYCIN 11/14/2004 IBUPROFEN 11/14/2004 LATEX 06/30/2010 16 - Unknown NSAIDS (NON-STEROIDAL ANTI-INFLAM*02/23/2014 6 - Diarrhea 11 - Vomiting Date Reviewed: 04/04/2017 Reviewed by: Johny Demarco) CARMELA Valencia - Fully Assessed Reason for Visit: Follow Up [171] Primary Visit Diagnosis:Preop cardiovascular exam [Z01.810] Other Visit Diagnosis:Essential hypertension [I10] Order(s):ECG B/O W INTERP (MED OFFICE) [ECG06] Order #: [id number] lisinopril (PRINIVIL) 20 mg tabletTake 1 tablet [...] the following areas and commit to making intermediate changes. EAT A WHOLE FOOD, PLANT BASED [...] in your area. Visit Notes: >> Johny Demarco) CARMELA Valencia SatApr 05, 2017 8:28 AM [...] Recorded Classic SmartForms filed during this visit: [employer] Vitals Encounter Status:Closed by SELWYN FARFAN MD on 04/04/17 ALLERGIES ALLERGIES DATE TYPE / CODE NAME / CODE REACTION SEVERITY SOURCE Drug NSAIDS Vomiting,diar Unknown [place] 9 Allergy/314765821( (Non-Steroidal cuca [facility] SNOMED CT) Anti-Inflamma/F00 Hospital 1697611(RXNORM) Repository Drug erythromycin Vomiting,diar Unknown [place] 9 Allergy/898192895( base/E657300320(R cuca [facility] SNOMED CT) XNORM) Hospital Repository Drug morphine/N9703563 Nausea/Vom/Di Unknown [place] 9 Allergy[facility]989717857( [facility] aspirin/K30417643 Nausea/Vom/Di Unknown [place] 9 Allergy/407591832( 7(RXNORM[facility] Miscellaneous shellfish Unknown [place] 8 Allergy/962180560( [facility] SNOMED CT) Hospital Repository Miscellaneous percocet Unknown [place] 8 Allergy/218666892( [facility] SNOMED CT) Hospital Repository Drug NSAIDS DIARRHEA [place] 4 Class/915924873(SN (NON-STEROIDAL Clinic Other OMED CT) ANTI-INFLAMMATORY [place] [facility]) Repository Drug NSAIDS DIARRHEA [place] 4 Class/978191761(SN (NON-STEROIDAL Clinic Other OMED CT) ANTI-INFLAMMATORY [place] [facility]) Repository DRUG LATEX OTHER: SEE C [place] 1 INGREDI/797752920( Clinic Other SNOMED CT) [place] Repository DRUG LATEX UNKNOWN [place] 1 INGREDI/904452954( Clinic Other SNOMED CT) [place] Repository Drug SALICYLATES GI UPSET [place] 5 Class/639812668(SN Clinic Other OMED CT) [place] Repository DRUG/695554114(SNO ERYTHROMYCIN Vomiting [facility] [place] [address]) Clinic Other [place] Repository DRUG IBUPROFEN GI UPSET [place] 5 INGREDI/746233732( Clinic Other SNOMED CT) [place] Repository Drug SALICYLATES [place] 5 Class/038719421(SN Clinic Other OMED CT) [place] Repository DRUG/355139994(SNO ERYTHROMYCIN [place] [address]) Clinic Other [place] Repository DRUG IBUPROFEN [place] 5 INGREDI/952667831( Clinic Other SNOMED CT) [place] Repository Drug NSAID/11140208(RX Moderate [place] Allergy/916005501( NORM) ([facility]) Modifier) Hospital (Qualifier Repository Value) Drug ERYTHROMYCIN/0000 Moderate [place] Allergy/664454381( 0326(RXNORM) ([facility]) Modifier) Hospital (Qualifier Repository Value) NG/352782589(SNOME SALICYLATES [facility]) Health System Repository NG/123331619(SNOME ERYTHROMYCIN [facility]) [facility] System Repository NG/183389604(SNOME IBUPROFEN [facility]) [facility] System Repository NG/446135613(SNOME LATEX [facility]) [facility] System Repository NG/582700696(SNOME NSAIDS [facility]) (NON-STEROIDAL Health System ANTI-INFLAMMATORY Repository DRUG) ENCOUNTERS ENCOUNTERS ADMIT/DISCHARGE ACCOUNT NUMBER ADMITTING ENCOUNTER LOCATION SOURCE CLASS 03/24/2018 [id number] Ambulatory [facility] ding:NM Repository 03/18/2018/03/18/19 [id number] Emergency [address] ding:ED Repository 03/17/2018/03/17/19 [id number] Emergency [address] ding:ED Repository 02/18/2018 [id number] Ambulatory [facility] ding:RAD.FUT Repository URE 02/10/2018 [id number] Ambulatory [facility] ding:RAD Repository 01/17/2018 [id number] Ambulatory [facility] ding:CT Repository 01/14/2018/01/15/20 [id number] Emergency [address] ding:ED Repository 01/13/2018/01/15/20 [id number] Jcarlos Price Ambulatory [address] ding:PCURoom Repository : [id number]: 1 01/13/2018 [id number] Jcarlos Price Ambulatory BMSBuilding: [place] BMS.[facility] Repository 01/13/2018 [id number] Ambulatory BMSBuilding: [place] [facility] Repository 01/13/2018 [id number] Ambulatory BMSBuilding: [place] BMS.[facility] Repository 01/08/2018/01/09/20 [id number] Ambulatory [address] Repository 01/06/2018/01/07/20 [id number] Ambulatory [address] ding:ENRoom: Repository AC11 01/06/2018/01/07/20 [id number] Ambulatory BMSBuilding: [place] 18 BMS.CF.[facility] Repository 12/27/2017 [id number] Ambulatory [facility] ding:PT Repository 12/27/2017/12/28/19 [id number] Ambulatory BMSBuilding: [place] 18 BMS.[facility] Repository 12/24/2017/12/25/19 [id number] Ambulatory BMSBuilding: [place] 18 BMS.[facility] Repository 12/16/2017 [id number] Ambulatory [facility] ding:RAD Repository 12/03/2017 [id number] Ambulatory BMSBuilding: [place] BMS.[facility] Repository 12/02/2017/12/03/19 [id number] Ambulatory [address] Repository 11/21/2017/11/26/19 [id number] Ambulatory [address] Repository 11/21/2017/11/23/19 [id number] Ambulatory [address] Repository 10/29/2017 [id number] Ambulatory [facility] ding:LAB Repository 10/21/2017 [id number] Ambulatory [facility] MEDICAL Repository CENTERBuildi ng:CAGWS 10/14/2017 [id number] Ambulatory [facility] ding:RAD.FUT Repository URE 10/08/2017/10/10/19 [id number] MEG, Emergency Buildin[address] [place] [address] CRYSTAL MANCINI Room: ERBed: [facility] Repository 10/08/2017/10/09/19 [id number] Emergency [address] ding:ED Repository 10/04/2017/10/05/19 [id number] Emergency [address] ding:ED Repository 08/26/2017/08/28/19 [id number] Emergency [address] ding:ED Repository 08/23/2017/08/24/[id number] JADE Emergency Buildin[address] [place] [address] Room: ERBed: [facility] Repository 08/22/2017/08/23/19 [id number] Emergency [address] ding:ED Repository 06/24/2017 [id number] Ambulatory [facility] MEDICAL Repository CENTERBuildi ng:CAGWS 06/18/2017/06/19/19 [id number] Ambulatory [address] Repository 06/18/2017/06/19/19 [id number] Ambulatory [address] MEDICAL Repository CENTERBuildi ng:AGGENS1 06/05/2017 [id number] Ambulatory [facility] MEDICAL Repository CENTERBuildi ng:AKPAT 05/30/2017/06/02/19 [id number] GIOVANNI HERNÁNDEZ Inpatient [address] Repository 05/30/2017/03/24 [id number] GIOVANNI HERNÁNDEZ Inpatient [address] MEDICAL Repository CENTERBuildi nARoom: 5207Bed: 05/22/2017 [id number] Ambulatory [facility] ding:LABSPEC Repository 05/22/2017/05/23/19 [id number] Ambulatory BMSBuilding: [place] 18 BMS.[facility] Repository 05/21/[id number] [facility] Repository 05/21/2017/05/22/19 [id number] Ambulatory [address] MEDICAL Repository CENTERBuildi ng:AKLB 05/21/[id number] [facility] Repository 05/21/[id number] [facility] Repository CENTERBuildi ng:AKPAT 05/20/2017/05/21/19 [id number] Ambulatory [address] ding:ENRoom: Repository AC10 05/20/2017 [id number] Ambulatory BMSBuilding: [place] BMS.CF.[facility] Repository 05/17/2017/05/18/19 [id number] Ambulatory BMSBuilding: [place] 18 BMS.[facility] Repository 05/14/2017/05/15/19 [id number] Ambulatory [address] Repository 05/14/2017/05/15/19 [id number] Ambulatory [address] MEDICAL Repository CENTERBuildi ng:AGGENS1 05/01/2017/05/02/19 [id number] Ambulatory [address] [place] Repository 05/01/2017/05/01/19 [id number] Ambulatory [address] [place] Repository 04/22/2017/04/22/19 [id number] Ambulatory [address] [place] Repository 04/22/2017/04/22/19 [id number] Ambulatory [address] Other [place] Repository 04/22/2017/04/22/19 [id number] Ambulatory [address] MEDICAL Repository CENTERBuildi ng:AGGENS1 04/12/2017 [id number] Ambulatory [facility] ding:MTLAB Repository 04/11/2017/04/11/19 [id number] Ambulatory BMSBuilding: [place] 18 BMS.G [facility] Repository 04/08/2017/04/08/19 [id number] Ambulatory [place] 18 [facility] ding:EN Repository 04/08/2017 [id number] Ambulatory BMSBuilding: [place] BMS.CF.WSA [facility] Repository 04/04/2017/04/04/19 [id number] Ambulatory [address] Repository 04/04/2017/04/04/19 [id number] Ambulatory [address] MEDICAL Repository CENTERBuildi ng:CAGWS PAYERS PAYERS ENCOUNTER GUARANTOR PAYER SUBSCRIBER SOURCE 03/24/2018 RAMSES L Primary RAMSES L [place] [id number] E Insurance:HUMANA ROBERTSDOB: Community [place] MED[place] PPOPolicy [id number] Number: Repository [address]Zjg: 330 [id number] [phone] () Date:3563-80-30TA[address] [address]GB: 03/24/2018 Secondary RAMSES L [place] Insurance:MEDICAIDPoli LEEANNDOB: [facility] cy Number: [id number] [facility] [id number] Repository Date:2018-03-17 03/24/2018 Tertiary NOT GIVENUNK [place] Insurance:SELF PAY [facility] Number: Effective Repository Date:2018-03-17 03/18/2018 RAMSES L Primary RAMSES L [place] [id number] E Insurance:HUMANA ROBERTSDOB: Community [place] PPOPolicy [id number] [place] [address] Number: Repository [id number]: 330 [id number] [phone] () Date:1154-26-12LZ[address] [address]YP: 03/18/2018 Secondary RAMSES L [place] Insurance:MEDICAIDPoli [facility] cy Number: [id number] Hospital [id number] Repository Date:2018-03-18 03/18/2018 Tertiary NOT GIVENUNK [place] Insurance:SELF PAY [facility] Number: Effective Repository Date:2018-03-18 03/17/2018 RAMSES L Primary RAMSES L [place] [id number] E Insurance:HUMANA ROBERTSDOB: [facility] [place] MED[place] [facility] [id number], [place] Number: Repository [address]Aur: 330 [id number] [phone] (HP) Date:7658-44-46YB [address] [address]PA: 03/17/2018 Secondary RAMSES L [place] Insurance:MEDICAIDPoli ROBERTSDOB: Community cy Number: [id number] Hospital [id number] Repository Date:2018-03-17 03/17/2018 Tertiary NOT GIVENUNK [place] Insurance:SELF PAY [facility] Number: Effective Repository Date:2018-03-17 02/18/2018 RAMSES L Primary RAMSES L [place] [id number] E Insurance:HUMANA ROBERTSDOB: [facility] MEDICARE [facility] [id number], [place] Number: Repository [address]Zkz: 330 [id number] [phone] () Date:3028-05-25JW [address] [address]YT: 02/18/2018 Secondary RAMSES L [place] Insurance:MEDICAIDPoli ROBERTSDOB: Community cy Number: [id number] Hospital [id number] Repository Date:2018-02-11 02/18/2018 Tertiary NOT GIVENUNK [place] Insurance:SELF PAY [facility] Number: Effective Repository Date:2018-02-11 02/10/2018 RAMSES L Primary RAMSES L [place] [id number] E Insurance:HUMANA ROBERTSDOB: [facility] [place] MEDICARE [facility] [id number], [place] Number: Repository [address]Xgq: 330 [id number] [phone] (HP) Date:6065-51-81RN [address] [address]XA: 02/10/2018 Secondary RAMSES L [place] Insurance:MEDICAIDPoli ROBERTSDOB: Community cy Number: [id number] Hospital [id number] Repository Date:2018-01-22 02/10/2018 Tertiary NOT GIVENUNK [place] Insurance:SELF PAY [facility] Number[facility] Effective Repository Date:2018-01-22 01/17/2018 RAMSES L Primary RAMSES L [place] [id number] E Insurance:HUMANA ROBERTSDOB: Community [place] MEDICARE [facility] [id number] [place] Number: Repository [address]Kii: (650) [id number] [phone] () Date:5501-06-79SS [address] [address]RA: 01/17/2018 Secondary RAMSES L [place] Insurance:MEDICAIDPoli ROBERTSDOB: Community cy Number: [id number] Hospital [id number] Repository Date:2018-01-09 01/17/2018 Tertiary NOT GIVENUNK [place] Insurance:SELF PAY [facility] Number: Effective Repository Date:2018-01-09 01/14/2018 RAMSES L Primary RAMSES L [place] [id number] E Insurance:HUMANA ROBERTSDOB: Community [place] MEDICARE [facility] [id number] [place] Number: Repository [address]Ljn: 330 [id number] [phone] () Date:8511-00-70JI[address] [address]YF: 01/14/2018 Secondary RAMSES L [place] Insurance:MEDICAIDPoli ROBERTSDOB: Community [place] Number: [id number] Hospital [id number] Repository Date:2018-01-14 01/14/2018 Tertiary NOT GIVENUNK [place] Insurance:SELF PAY [facility] Number: Effective Repository Date:2018-01-14 01/13/2018 RAMSES L Primary RAMSES L [place] [id number] E Insurance:HUMANA ROBERTSDOB: Community [place] MEDICARE [facility] [id number], [place] Number: Repository [address]Hrw: 330 [id number] [phone] () Date:2552-03-77TX [address] [address]RP: 01/13/2018 Secondary RAMSES L [place] Insurance:MEDICAIDPoli ROBERTSDOB: Community cy Number: [id number] Hospital [id number] Repository Date:2018-01-13 01/13/2018 Tertiary NOT GIVENUNK [place] Insurance:SELF PAY [facility] Number: Effective Repository Date:2018-01-13 01/13/2018 RAMSES L Primary RAMSES L [place] [id number] E Insurance:HUMANA ROBERTSDOB: Community [facility] [id number] [place] Number: Repository [address]Dtt: 330 [id number] [phone] () Date:2837-50-02NG [address] [address]CA: 01/13/2018 Secondary RAMSES L [place] Insurance:MEDICAIDPoli ROBERTSDOB: Community cy Number: [id number] Hospital [id number] Repository Date:2018-01-13 01/13/2018 Tertiary NOT GIVENUNK [place] Insurance:SELF PAY [facility] Number: Effective Repository Date:2018-01-13 01/13/2018 RAMSES L Primary RAMSES L [place] [id number] E Insurance:HUMANA ROBERTSDOB: [facility] [place] MEDICARE [facility] [id number] Number: Repository [address]Gfj: 330 [id number] [phone] () Date:3696-48-15LP[address] [address]QT: 01/13/2018 Secondary RAMSES L [place] Insurance:MEDICAIDPoli ROBERTSDOB: Community cy Number: [id number] Hospital [id number] Repository Date:2018-01-13 01/13/2018 Tertiary NOT GIVENUNK [place] Insurance:SELF PAY [facility] Number: Effective Repository Date:2018-01-13 01/13/2018 RAMSES L Primary RAMSES L [place] [id number] E Insurance:HUMANA ROBERTSDOB: [facility] [place] MEDICARE [facility] [id number], [place] Number: Repository [address]Fxc: 330 [id number] [phone] (HP) Date:4783-09-19RW [address] [address]NR: 01/13/2018 Secondary RAMSES L [place] Insurance:MEDICAIDPoli ROBERTSDOB: [facility] cy Number: [id number] Hospital [id number] Repository Date:2018-01-13 01/13/2018 Tertiary NOT GIVENUNK [place] Insurance:SELF PAY [facility] Number: Effective Repository Date:2018-01-13 01/06/2018 RAMSES L Primary RAMSES L [place] [id number] E Insurance:HUMANA ROBERTSDOB: [facility] [place] MEDICARE [facility] [id number], [place] Number: Repository [address]Jit: 330 [id number] [phone] (HP) Date:8545-66-98DS [address] [address]AC: 01/06/2018 Secondary RAMSES L [place] Insurance:MEDICAIDPoli ROBERTSDOB: Community cy Number: [id number] Hospital [id number] Repository Date:2017-12-27 01/06/2018 Tertiary NOT GIVENUNK [place] Insurance:SELF PAY [facility] Number: Effective Repository Date:2017-12-27 01/06/2018 RAMSES L Primary RAMSES L [place] [id number] E Insurance:HUMANA ROBERTSDOB: [facility] [place] MEDICARE [facility] [id number] Number: Repository [address]Wac: 330 [id number] [phone] (HP) Date:0383-57-30BP [address] [address]KT: 01/06/2018 Secondary RAMSES L [place] Insurance:MEDICAIDPoli ROBERTSDOB: Community cy Number: [id number] Hospital [id number] Repository Date:2017-12-27 01/06/2018 Tertiary NOT GIVENUNK [place] Insurance:SELF PAY [facility] Number: Effective Repository Date:2018-01-06 12/27/2017 RAMSES L Primary RAMSES L [place] [id number] E Insurance:HUMANA ROBERTSDOB: [facility] [place] MEDICARE [facility] [id number] Number: Repository [address]Nse: 330 [id number] [phone] () Date:0163-54-11CM [address] [place] [address]IG: 12/27/2017 Secondary RAMSES L [place] Insurance:MEDICAIDPoli ROBERTSDOB: Community cy Number: [id number] Hospital [id number] Repository Date:2017-08-09 12/27/2017 Tertiary NOT GIVENUNK [place] Insurance:SELF PAY [facility] Number: Effective Repository Date:2017-09-04 12/27/2017 RAMSES L Primary RAMSES L [place] [id number] E Insurance:HUMANA ROBERTSDOB: [facility] MEDICARE [facility] [id number], [place] Number: Repository [address]Uqf: 330 [id number] [phone] () Date:6307-96-45IG [address] [place] [address]JY: 12/27/2017 Secondary RAMSES L [place] Insurance:MEDICAIDPoli ROBERTSDOB: Community cy Number: [id number] Hospital [id number] Repository Date:2017-12-25 12/27/2017 Tertiary NOT GIVENUNK [place] Insurance:SELF PAY [facility] Number: Effective Repository Date:2017-12-27 12/24/2017 RAMESS L Primary RAMSES L [place] [id number] E Insurance:HUMANA ROBERTSDOB: [facility] MEDICARE [facility] [id number] Number: Repository [address]Xpt: 330 [id number] [phone] () Date:3304-80-80RG[address] [address]KA: 12/24/2017 Secondary RAMSES L [place] Insurance:MEDICAIDPoli ROBERTSDOB: Community cy Number: [id number] Hospital [id number] Repository Date:2017-12-16 12/24/2017 Tertiary NOT GIVENUNK [place] Insurance:SELF PAY [facility] Number: Effective Repository Date:2017-12-24 12/16/2017 RAMSES L Primary RAMSES L [place] [id number] E Insurance:HUMANA ROBERTSDOB: Community [place] MEDIC[place] PPOPolicy [id number] [place] Number: Repository [address]Xou: 330 [id number] [phone] () Date:5339-76-91RG[address] [address]YM: 12/16/2017 Secondary RAMSES L [place] Insurance:MEDICAIDPoli ROBERTSDOB: Community cy Number: [id number] Hospital [id number] Repository Date:2017-12-16 12/16/2017 Tertiary NOT GIVENUNK [place] Insurance:SELF PAY [facility] Number: Effective Repository Date:2017-12-16 12/03/2017 RAMSES L Primary RAMSES L [place] [id number] E Insurance:HUMANA ROBERTSDOB: Community [place] MEDIC[place] PPOPolicy [id number] [place] Number: Repository [address]Wku: (330 [id number] [phone] () Date:6645-57-67YL [address] [address]OG: 12/03/2017 Secondary RAMSES L [place] Insurance:MEDICAIDPoli ROBERTSDOB: Community cy Number: [id number] Hospital [id number] Repository Date:2017-11-27 12/03/2017 Tertiary NOT GIVENUNK [place] Insurance:SELF PAY [facility] Number: Effective Repository Date:2017-11-27 10/29/2017 RAMSES L Primary RAMSES L [place] [id number] E Insurance:HUMANA LEEANNDOB: Community [place] MEDIC[place] PPOPolicy [id number] Number: Repository [address]Aez: 330 [id number] [phone] () Date:0973-71-41VB [address] [place] [address]VJ: 10/29/2017 Secondary RAMSES L [place] Insurance:MEDICAIDPoli ROBERTSDOB: [facility] cy Number: [id number] Hospital [id number] Repository Date:2017-10-29 10/29/2017 Tertiary NOT GIVENUNK [place] Insurance:SELF PAY [facility] Number: Effective Repository Date:2017-10-29 10/21/2017 RAMSES L Primary RAMSES L [facility] ROBERTSDOB: Insurance:[facility] LEEANNB: Health System MEDICARE PPOPolicy [id number] Number: [facility] [id number] [address] [place] [address] Date: 94[address]Bez: () 10/21/2017 Secondary RAMSES L [facility] Insurance:[place] LEEANNB: [facility] MEDICAIDPolicy Number: [id number] Repository [id number] Date: 10/14/2017 RAMSES L Primary RAMSES L [place] [id number] E Insurance:HUMANA LEEANNDOB: Community [place] MEDIC[place] PPOPolicy [id number], [place] Number: Repository [address]Msg: (330 [id number] [phone] () Date:3711-68-59HJ [address] [place] [address]FX: 10/14/2017 Secondary RAMSES L [place] Insurance:MEDICAIDPoli ROBERTSDOB: [facility] cy Number: [id number] Hospital [id number] Repository Date:2017-10-14 10/14/2017 Tertiary NOT GIVENUNK [place] Insurance:SELF PAY [facility] Number: Effective Repository Date:2017-10-14 10/08/2017 RAMSES L Primary RAMSES L Jamar Pomerene ROBERTSDOB: Insurance:HUMANA ROBERTSDOB: [facility] E MEDICARE ADVANTAGE [id number] [address], [place] Number: [place] [id number]: (330 [id number] [phone] (HP) Date:Plan Name: 10/08/2017 Secondary RAMSES L Jamar [place]ome[place] Insurance:MEDICAID ROBERTSDOB: [facility] [id number] Hospital Number: [place] Repository [id number] [place] Date:Plan Name: [id number] 10/08/2017 RAMSES L Primary RAMSES L [place] [id number] E Insurance:HUMANA ROBERTSDOB: Community [place] MEDIC[place] PPOPolicy [id number] Number: Repository [address]Oom: (330) [id number] [phone] (HP) Date:2042-90-18EL [address] [address]YV: 10/08/2017 Secondary RAMSES L [place] Insurance:MEDICAIDPoli ROBERTSDOB: [facility] cy Number: [id number] Hospital [id number] Repository Date:2017-10-08 10/08/2017 Tertiary NOT GIVENUNK [place] Insurance:SELF PAY [facility] Number: Effective Repository Date:2017-10-08 10/04/2017 RAMSES L Primary RAMSES L [place] [id number] E Insurance:HUMANA ROBERTSDOB: Community [place] MEDICARE PPOPolicy [id number] Number: Repository [id number]: (330) [id number] [phone] (HP) Date:2000-88-65LO[address] [address]SV: 10/04/2017 Secondary RAMSES L [place] Insurance:MEDICAIDPoli ROBERTSDOB: [facility] cy Number: [id number] Hospital [id number] Repository Date:2017-10-04 10/04/2017 Tertiary NOT GIVENUNK [place] Insurance:SELF PAY [facility] Number: Effective Repository Date:2017-10-04 08/26/2017 RAMSES L Primary RAMSES L [place] [id number] E Insurance:HUMANA ROBERTSDOB: Community [place] MEDICARE PPOPolicy [id number] [place] Number: Repository [address]Hve: (330) [id number] [phone] (HP) Date:0227-72-41LA [address] [place] [address]PK: 08/26/2017 Secondary RAMSES L [place] Insurance:MEDICAIDPoli ROBERTSDOB: [facility] Number: [id number] Hospital [id number] Repository Date:2017-08-26 08/26/2017 Tertiary NOT GIVENUNK [place] Insurance:SELF PAY [facility] Number: Effective Repository Date:2017-08-26 08/23/2017 RAMSES L Primary RAMSES L Jamar Pomerene ROBERTSDOB: Insurance:HUMANA ROBERTSDOB: [facility] E MEDICARE ADVANTAGE [id number] [address] [place] Number: [place], [place] [address]Gui: 330 [id number] [phone] (HP) Date:Plan Name: 08/23/2017 Secondary RAMSES L Jamar Pomerene Insurance:MEDICAID ROBERTSDOB: [facility] [id number] Hospital Number: 4 NONPARIEL Repository [id number] RDFREDER[place]KSBURG Date:Plan Name:[address] [address] 08/22/2017 RAMSES L Primary RAMSES L [place] [id number] E Insurance:HUMANA ROBERTSDOB: Community [place] MEDIC[place] PPOPolicy [id number] [place] Number: Repository [address]Ose: 330 [id number] [phone] (HP) Date:2199-68-08BI [address] [place] [address]BT: 08/22/2017 Secondary RAMSES L [place] Insurance:MEDICAIDPoli ROBERTSDOB: [facility] Number: [id number] [facility] [id number] Repository Date:2017-08-22 08/22/2017 Tertiary NOT GIVENUNK [place] Insurance:SELF PAY [facility] Number: Effective Repository Date:2017-08-22 06/24/2017 RAMSES L Primary RAMSES L [facility] ROBERTSDOB: [facility] MEDICARE PPOPolicy [id number] Repository [facility] Number: [place] [id number] [address], [place] Date: [address]Owa: (HP) 06/24/2017 Secondary RAMSES L [facility] Insurance:[facility] Health System MEDICAIDPolicy Number: [id number] Repository [id number] Date: 06/18/2017 RAMSES L Primary RAMSES L [facility] ROBERTSDOB: Insurance:[facility] E MEDICARE PPOPolicy [id number] Repository [facility] [address] Number: [address] [id number]: (311) Date: (HP) 06/18/2017 Secondary RAMSES L [facility] Insurance:[facility]: Health System MEDICAIDPolicy Number: [id number] Repository [id number] Date: 06/05/2017 RAMSES L Primary RAMSES L [facility] ROBERTSDOB: [facility] MEDICARE PPOPolicy [id number] Repository [facility] Number: [place] [id number] [address] Date: [address]Bmo: (HP) 06/05/2017 Secondary RAMSES L [facility] Insurance:[facility]: Health System MEDICAIDPolicy Number: [id number] Repository [id number] Date: 05/30/2017 RAMSES L Primary RAMSES L [facility] ROBERTSDOB: Insurance:HUMANA ROBERTSDOB: Health System E MEDICARE [facility] [id number] Repository [facility] Number: [place], [place] [id number]: (330) Date: () 05/30/2017 Secondary RAMSES L [facility] Insurance:[place] ROBERTSDOB: Health System [facility] Number: [id number] Repository [id number] Date: 05/22/2017 RAMSES L Primary RAMSES L [place] [id number] E Insurance:HUMANA LEEANNDOB: [facility] MEDICARE [facility] [id number] Number: Repository [address]Atb: (330) [id number] () Date:6735-18-86HJ [address] [place] [address]GQ: 05/22/2017 Secondary RAMSES L [place] Insurance:MEDICAIDPol ROBERTSDOB: [facility] cy Number: [id number] Hospital [id number] Repository Date:2017-05-22 05/22/2017 Tertiary NOT GIVENUNK [place] Insurance:SELF PAY [facility] Number: Effective Repository Date:2017-05-22 05/22/2017 RAMSES L Primary RAMSES L [place] [id number] E Insurance:HUMANA LEEANNDOB: [facility] MEDICARE [facility] [id number] Number: Repository [address]Lsr: 330 [id number] () Date:8186-60-29BI [address] [place] [address]ZQ: 05/22/2017 Secondary RAMSES L [place] Insurance:MEDICAIDPoli ROBERTSDOB: [facility] cy Number: [id number] Hospital [id number] Repository Date:2017-05-21 05/22/2017 Tertiary NOT GIVENUNK [place] Insurance:SELF PAY [facility] Number: Effective Repository Date:2017-05-21 05/21/2017 RAMSES L Primary RAMSES L [facility] ROBERTSDOB: Insurance:[facility] ROBERTSDOB: [facility] E MEDICARE [facility] [id number] Hospital Number: [place] [id number] [address]Uzt: (330) Date: (HP) 05/21/2017 Secondary RAMSES L [facility] [facility] MEDICAIDPolicy Number: [id number] Repository [id number] Date: 05/21/2017 RAMSES L Primary RAMSES L [place] [facility] ROBERTSDOB: Insurance:[facility] LEEANNDOB: [facility] E MEDICARE [facility] [id number] Number: [address] [id number]: (330) Date: (HP) 05/21/2017 Secondary RAMSES L [place] [facility] Insurance:[facility] MEDICAIDPolicy Number: [id number] Repository [id number] Date: 05/20/2017 RAMSES L Primary RAMSES L [place] [id number] Insurance:HUMANA ROBERTSDOB: Community [place] MEDIC[place] PPOPolicy [id number] Number: Repository [address]Kjv: 330 [id number] (HP) Date:[id number] [phone]: 05/20/2017 Secondary RAMSES L [place] Insurance:MEDICAIDPol ROBERTSDOB: [facility] Number: [id number] [facility] [id number] Repository Date:2017-05-17 05/20/2017 Tertiary NOT GIVENUNK [place] Insurance:SELF PAY [facility] Number: Effective Repository Date:2017-05-17 05/20/2017 RAMSES L Primary RAMSES L [place] [id number] E Insurance:HUMANA ROBERTSDOB: Community [place] MED[place] PPOPolicy [id number] Number: Repository [address]Lyl: 330 [id number] (HP) Date:0221-02-44MG [address] [place] [id number]: 05/20/2017 Secondary RAMSES L [place] Insurance:MEDICAIDPoli ROBERTSDOB: Community [place] Number: [id number] Hospital [id number] Repository Date:2017-05-17 05/20/2017 Tertiary NOT GIVENUNK [place] Insurance:SELF PAY [facility] Number: Effective Repository Date:2017-05-20 05/17/2017 RAMSES L Primary RAMSES L [place] [id number] E Insurance:HUMANA ROBERTSDOB: Community [place] PPOPolicy [id number] Hospital [address] Number: Repository [id number]: 330 [id number] [phone] Date:6949-58-82TO [address] [place] [id number]: 05/17/2017 Secondary RAMSES L [place] Insurance:MEDICAIDPoli ROBERTSDOB: [facility] [place] Number: [id number] Hospital [id number] Repository Date:2017-05-14 05/17/2017 Tertiary NOT GIVENUNK [place] Insurance:SELF PAY [facility] Number: Effective Repository Date:2017-05-14 05/14/2017 RAMSES L Primary RAMSES L [place] [facility] ROBERTSDOB: Insurance:HUMANA ROBERTSDOB: Health System MEDICARE PPOPolicy [id number] Repository [facility] Number: [place] [id number] [address], [place] Date: [address]Wyu: (HP) 05/14/2017 Secondary RAMSES L [place] [facility] Insurance:[place] ROBERTSDOB: [facility]: [id number] Repository [id number] Date: 04/22/2017 RAMSES L Primary RAMSES L [place] [facility] ROBERTSDOB: Insurance:HUMANA ROBERTSDOB: Health System MEDICARE [facility] [id number] Repository [facility] Number: [place] [id number] [address], [place] Date: [address]Xjk: (HP) 04/22/2017 Secondary RAMSES L [place] [facility] Insurance:[facility]: Health System MEDICAIDPolicy Number: [id number] Repository [id number] Date: 04/12/2017 RAMSES L Primary RAMSES L [place] [id number] [address] Insurance:HUMANA ROBERTSDOB: Community [place] PPOPolicy [id number], [place] Number: Repository [id number]: 330 [id number] [phone] (HP) Date:2474-49-55EJ [address] [place] [id number]: 04/12/2017 Secondary RAMSES L [place] Insurance:MEDICAIDPol ROBERTSB: [facility] [place] Number: [id number] Hospital [id number] Repository Date:2017-04-12 04/12/2017 Tertiary NOT GIVENUNK [place] Insurance:SELF PAY [facility] Number: Effective Repository Date:2017-04-12 04/11/2017 RAMSES L Primary RAMSES L [place] [id number] Insurance:HUMANA ROBERTSDOB: Community [place] MED[place] PPOPolicy [id number] [place] Number: Repository [address]Zzw: 330 [id number] [phone] Date:5827-09-88QX [address] [place] [id number]: 04/11/2017 Secondary RAMSES L [place] Insurance:MEDICAIDPoli ROBERTSB: [facility] [place] Number: [id number] Hospital [id number] Repository Date:2017-03-25 04/11/2017 Tertiary NOT GIVENUNK [place] Insurance:SELF PAY [facility] Number: Effective Repository Date:2017-03-25 04/08/2017 Ramses L Primary Ramses L [place] [id number] Insurance:HUMANA RobertsDOB: [facility] MEDICARE [facility] [id number] [place] Number: Repository [address]Iyr: 330 [id number] [phone] (HP) Date:5494-37-33DC [address] [place] [phone]: 04/08/2017 Secondary Ramses L [place] Insurance:MEDICAIDPoli RobertsDOB: Community [place] Number: [id number] Hospital [id number] Repository Date:2017-03-21 04/08/2017 Tertiary NOT GIVENUNK [place] Insurance:SELF PAY [facility] Number: Effective Repository Date:2017-03-21 04/08/2017 Ramses L Primary Ramses L [place] [id number] Insurance:HUMANA RobertsDOB: Community [place] MED[place] PPOPolicy [id number] Number: Repository [address]Vgv: 330 [id number] [phone] Date:4516-79-44WP [address] [address]EZ: 04/08/2017 Secondary Ramses L [place] Insurance:MEDICAIDPoli RobertsDOB: [facility] [place] Number: [id number] [id number] Repository Date:2017-03-21 04/08/2017 Tertiary NOT GIVENUNK [place] Insurance:SELF PAY [facility] Number: Effective Repository Date:2017-04-08 04/04/2017 RAMSES L Primary RAMSES L [place] [facility] ROBERTSDOB: Insurance:HUMANA ROBERTSDOB: Health System MEDICARE PPOPolicy [id number] Repository [facility] Number: [place] [id number] [address], [place] Date: [address]Ngb: (HP) 04/04/2017 Secondary RAMSES L [place] [facility] Insurance:[place] LEEANNDOB: Health System MEDICAIDPolicy Number: [id number] Repository [id number] Date:
== END ==
PROVIDERS: Family Provider Family Medicine; PCP Family Medicine; Referring Provider Anesthesiology Pain Medicine; Visit Provider Anesthesiology Pain Medicine
DX: M25.552 Pain in left hip (principal); M25.551 Pain in right hip
CPT/HCPCS: 73521

== ENCOUNTER 2018-03-17 16:28 | Emergency (ER) | payer MEDICARE, MEDICAID, SELFPAY ==
[2018-03-17 16:31] VITALS: BP 116/71; PULSE 93; RESP 12; TEMP 37.4; O2SAT 96; BMI 28.1
--- NOTE | 2018-03-17 17:46 | EKG12_ITS ---
Test Reason : SYNCOPE Blood Pressure : / mmHG Vent. Rate : 087 BPM Atrial Rate : 087 BPM P-R Int : 156 ms QRS Dur : 090 ms QT Int : 372 ms P-R-T Axes : 047 044 043 degrees QTc Int : 447 ms Normal sinus rhythm Possible Inferior infarct , age undetermined Abnormal ECG Confirmed by AIDEN GAUTAM, LEELEE ([id number]), assistant production editor KIM KIM ([id number]) on 03/19/2018 3:24:46 PM Referred By: Confirmed By:LEELEE WOLFE MD
--- NOTE | 2018-03-17 18:08 | ED.RN ---
BUPRENORPINE PATCH FROM HOME FLUSHED-WITNESSED BY AKIKO CARLSON.
--- NOTE | 2018-03-17 18:15 | ED.RN ---
THIS RN HEARD PATIENT YELLING WHILE TALKING TO DR. CHANG STATING THIS IS BULL SHIT!. THIS RN TO BEDSIDE WITH DR. CHANG, PATIENT BEGINS RIPPING OFF ELECTRODES AND BLOOD PRESSURE CUFF AND RIPS IV LOOP OFF OF CATHETER. IV DC'ED, CATHETER INTACT, SMALL GAUZE DRESSING PLACED. DR CHANG STATES TO PATIENT YOU REALIZE THAT IT IS NOT ADVISABLE THAT YOU LEAVE WITHOUT BEING EVALUATED. PATIENT GETS SELF DRESSED.
--- NOTE | 2018-03-17 18:17 | ED.RN ---
RN AT BEDSIDE REQUESTING ASSISTANCE OF ADDITIONAL NURSES. PATIENT LAYING ON FLOOR, AROUSABLE, ABLE TO GET SELF UPRIGHT AND BACK IN BED. PT ASSISTED BACK INTO GOWN AND BACK ONTO SHAREPOINT WEB DEVELOPER. DR. CHANG AND PROFESSOR OF COUNSELING AWARE.
--- NOTE | 2018-03-17 18:17 | ED.RN ---
PT UPSET ABOUT WAIT TIME TO SEE . PT YELLING AT DOCTOR. THIS NURSE ARRIVED TO ROOM. PT TAKING GOWN OFF, TAKING OFF TELE LEADS, BP CUFFS, RIPS OUT IV SL. PT STATING THAT SHE'S LEAVING I HOPE I TONIGHT, NOBODY TAKING CARE OF ME. I HOPE I TONIGHT, THAT'LL TEACH YOU. I'M GOING TO [facility] FOR NOT TREATING ME. DR LEAVES ROOM. PT GETTING DRESSED-THIS NURSE OUTSIDE ROOM WHILE PT GETTING DRESSED ALONE. PT THROWS HERSELF ON THE FLOOR AND KEEPS EYES CLOSED FOR A MOMENT WHEN THIS NURSE APPROACHES. PT RESPONDS VERBALLY WHEN TALKED TO. ASSISTED BACK TO BED. CHANGES BACK INTO GOWN. SAYS I'M SORRY. I GET LIKE THIS WHEN I'M IN PAIN. PT COOPERATIVE NOW.
[2018-03-17 18:18] VITALS: BP 124/80; PULSE 90; RESP 12; O2SAT 98
[2018-03-17 18:30] LABS: Bedside Glucose 92 mg/dL (70-110)
[2018-03-17 18:41] VITALS: BP 111/76; BP 112/89; BP 118/86; PULSE 87; PULSE 90; PULSE 95
--- NOTE | 2018-03-17 18:46 | EKG12_ITS ---
Test Reason : CP Blood Pressure : / mmHG Vent. Rate : 098 BPM Atrial Rate : 098 BPM P-R Int : 142 ms QRS Dur : 084 ms QT Int : 360 ms P-R-T Axes : 046 054 047 degrees QTc Int : 459 ms Normal sinus rhythm Normal ECG Confirmed by AIDEN GAUTAM, LEELEE ([id number]), medical transcription editor KIM KIM ([id number]) on 03/19/2018 3:25:03 PM Referred By: LELIA Confirmed By:LEELEE WOLFE MD
--- NOTE | 2018-03-17 19:13 | ED.RN ---
PT RINGS OUT, THIS RN TO BEDSIDE TO SEE WHAT PATIENT NEEDED, PATIENT BEGINS SWEARING, STATING THAT SHE WAS IN PAIN AND NO ONE WAS DOING FUCKING ANYTHING. PT TOLD THAT ORDERS WERE PLACED AND THAT SHE HAD NITRO ORDERED FOR PAIN. PT STATES I CAN'T TAKE NITRO IT GIVES ME A SEVERE MIGRAINE. PT MADE AWARE THAT WE WOULD TELL THE DOCTOR TO WHICH PATIENT STATES THIS IS BULL SHIT, WHAT THE FUCK HAVE YOU BEEN DOING FOR THE LAST 3 HOURS. PT CONTINUES TO DRESS HERSELF AND CALL FOR A RIDE. PT REFUSES WHEELCHAIR AND AMBULATED OUT OF ROOM AND OUT OF DEPARTMENT AND DEPARTMENT DOORS WITHOUT ISSUE. PT LASTLY STATED GET THE FUCK AWAY FROM ME THIS HOSPITAL IS PATHETIC. AUTOMOTIVE ELECTRICIAN AND PHYSICIAN MADE AWARE.
--- NOTE | 2018-03-17 19:59 | ED.VISSUMM ---
- ER Visit Summary Date of Service: 03/17/18 Chief Complaint: Syncopal episode and chest pain History of Present Illness: The patient is a 52 F who presents for a syncopal episode and chest pain. Patient states she started having sharp chest pains midsternal that shot into her back about 30 minutes prior to having a syncopal episode. Patient states she hit her head. She is still complaining of the shooting chest pains. She has had prior episodes of syncope. She denies fever, shortness of breath, cough, abdominal pain but does state she has nausea and a headache. 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 Patient is on buprenorphine and has 2 patches on at this time. She states she is a former smoker and does not drink alcohol. Physical Examination: Vital signs: afebrile, hemodynamically stable, no hypoxia on room air General: well nourished, well developed, in no distress Skin: warm, dry, no rash, no pallor HEENT: normocephalic and atraumatic no tenderness, contusions, hematomas, abrasions or lacerations noted to the scalp; PERRL, EOMI, moist mucous membranes no maxillofacial trauma Cardiovascular: regular rate and rhythm without murmurs, no peripheral edema, 2+ pulses all distal extremities Respiratory: No increased work of breathing, lungs are clear to auscultation bilaterally, no rales, rhonchi or wheezing Abdominal: Abdomen is soft, nontender with normoactive bowel sounds, no guarding or rebound, no masses MSK: Moves all extremities, no deformities, normal strength Neuro: Awake and alert, oriented ?4. No facial droop, sensation and motor function intact and symmetric, normal gait Test Results: Abnormal Lab Results 03/17/18 03/17/18 03/17/18 16:56 16:56 16:56 WBC 19.9 H RBC 4.77 Hgb 14.8 Hct 44.2 MCV 92.7 MCH 31.0 MCHC 33.5 RDW 13.4 RDW Differential 45.0 H Plt Count 233 MPV 10.2 Immature Gran % (Auto) 0.400 Neut % (Auto) 64.6 Lymph % (Auto) 27.4 [place] % (Auto) 6.2 Eos % (Auto) 1.2 Baso % (Auto) 0.2 Absolute Neuts (auto) 12.9 H Absolute Lymphs (auto) 5.46 H Total Counted Not Reportable Differential Comment SCANNED PT 12.7 INR 1.0 APTT 29.1 Sodium 143 Potassium 3.7 Chloride 111 H Carbon Dioxide 22.0 Anion Gap 10 BUN 22 H Creatinine 1.12 H Estim Creat Clear Calc 46.47 Est GFR (MDRD) Af Amer 66 Est GFR (MDRD) Non-Af 54 L BUN/Creatinine Ratio 19.6 Glucose 102 Calcium 9.0 Troponin I < 0.015 POC Glucose 03/17/18 18:20 WBC RBC Hgb Hct MCV MCH MCHC RDW RDW Differential Plt Count MPV Immature Gran % (Auto) Neut % (Auto) Lymph % (Auto) [place] % (Auto) Eos % (Auto) Baso % (Auto) Absolute Neuts (auto) Absolute Lymphs (auto) Total Counted Differential Comment PT INR APTT Sodium Potassium Chloride Carbon Dioxide Anion Gap BUN Creatinine Estim Creat Clear Calc Est GFR (MDRD) Af Amer Est GFR (MDRD) Non-Af BUN/Creatinine Ratio Glucose Calcium Troponin I POC Glucose 92 Medications Given Discontinued Medications Sodium Chloride () 1,000 mls @ 1,000 mls/hr IV .Q1H ONE Stop: 03/17/18 19:45 Nitroglycerin (Nitrostat) 0.4 mg SUBLINGUAL Q5M TOÑO Stop: 03/17/18 19:11 Ondansetron HCl (Zofran) 4 mg IV X1 ONE Stop: 03/17/18 18:47 Emergency Department Course and Treatment: EKG was performed that showed a sinus rhythm with no ischemia or ectopy. Chest pain workup was initiated, and patient states she cannot have aspirin due to her stomach surgery. She did not want nitroglycerin as she states it gives her an instant migraine. I told her because she has the buprenorphine patches on that it would be unwise to give her opiate pain medications, as the buprenorphine will work against them or there could also still be the chance of overdose with multiple opiate sources. Patient became very irate that I would not give her opiates and threatened to leave. I encouraged patient to stay for her workup since she is having active chest pain, however she stated she still wanted to leave. She began ripping the IV out of her arm and eventually was talked into letting us remove it properly. I encouraged patient not to leave since she has a history of cardiac issues and also states she hit her head and has not yet received a workup for her heart or for the head injury. Patient was adamant that she was leaving and began verbally abusing staff and using profane language. Patient chose to leave AGAINST MEDICAL ADVICE. Prior to her leaving the room, she began crawling across the ground under the curtain and stated that she fell, however she was witnessed throwing herself to the ground. Patient then stated she would stay for the workup this time. Workup was reinitiated, and patient again became very irate for an unknown reason and stated she was leaving again. She left AGAINST MEDICAL ADVICE and ambulated without difficulty out the door. She did not wait to allow us to formally have her sign AMA paperwork. Treatment Plan: [] Disposition: [] Impression: Syncopal episode, chest pain, left AMA 20:00 -patient was found laying outside the hospital, and was brought in by wheelchair. When patient found out she would not be taken immediately to a room because the rooms were full, patient stood up and ambulated without difficulty and began verbally abusing staff again stating that she was leaving. Patient walked out the front door and got into a van, leaving the hospital grounds. This note was generated with [employer] dictation software. It may contain incorrect words, spelling, and punctuation that were not noted in review of the chart prior to signing ED Disposition - Plan for ED Patient: Disposition: Against Medical Advice Chief Complaint: Syncope Referrals: Michael Leon MD [Primary Care Provider] -
[2018-03-17 20:51] LABS: Anion Gap 10 (5-15); BUN 22 mg/dL (7-18); BUN/Creat Ratio 19.6 RATIO (10-20); Chloride 111 mmol/L (98-107); Creatinine, Serum 1.12 mg/dL (0.55-1.02); EST Glomerular Filtration Rate 54 mL/min (>60); Est Glom Filt Rate - Afr Amer 66 mL/min (>60); Estimated Creatinine Clearance 46.47 ml/min; Glucose 102 mg/dL (74-106); Potassium 3.7 mmol/L (3.5-5.1); Sodium Level 143 mmol/L (136-145)
[2018-03-17 21:00] LABS: Absolute Lymphocyte Count 5.46 X10^3/ul (0.83-4.51); Absolute Neutrophil Count 12.9 X10^3/uL (2.0-7.7); Basophil# 0.03 X10^3/uL; Basophil% 0.2 % (0-1); Eosinophil# 0.24 X10^3/uL; Eosinophils% 1.2 % (0-5); Hematocrit 44.2 % (37-47); Hemoglobin 14.8 g/dl (12.0-15.0); Lymphocyte # 5.46 X10^3/ul (4.0); Lymphocyte % 27.4 % (19-41); Mean Corp Hgb Conc 33.5 g/gl (32-36); Mean Corpuscular Volume 92.7 fL (81-99); Mean Platelet Vol. 10.2 fl (6.2-12.0); Monocyte# 1.24 X10^3/uL; Monocyte% 6.2 % (0-10); Neutrophil # 12.88 X10^3/uL (2.7-7.7); Neutrophil % 64.6 % (47-70); Platelet Count 233 K/mm3 (150-450); RBC Distribution Width CV 13.4 % (11.6-14.6); Red Blood Count 4.77 M/mm3 (4.2-5.4); White Blood Count 19.9 K/mm3 (4.4-11.0)
[2018-03-17 21:02] LABS: Differential Indicated SCAN CRITERIA MET; POSITIVE COUNT NO; POSITIVE DIFFERENTIAL YES; POSITIVE MORPHOLOGY NO
[2018-03-17 21:22] LABS: Differential Comment SCANNED
[2018-03-17 21:32] LABS: Prothrombin Time (Protime)PT. 12.7 SECONDS (11.7-14.9)
[2018-03-17 21:33] LABS: Partial Thromboplast Time 29.1 Seconds (24.1-36.2)
== END 2018-03-17 19:28 | disposition left against medical advice (07) ==
PROVIDERS: Emergency Provider Emergency Medicine; Family Provider Family Medicine; PCP Family Medicine
DX: R55 Syncope and collapse (principal); R07.9 Chest pain, unspecified; R11.0 Nausea; R51 Headache; I49.5 Sick sinus syndrome; Z87.891 Personal history of nicotine dependence; Z95.0 Presence of cardiac pacemaker; Z90.3 Acquired absence of stomach [part of]
CPT/HCPCS: 80048; 82962; 84484; 85025; 85610; 85730; 93005; 99284; A4216; J2405

== ENCOUNTER 2018-03-18 13:30 | Emergency (ER) | payer MEDICARE, MEDICAID, SELFPAY ==
[2018-03-17 16:31] VITALS: BMI 28.1
[2018-03-18 13:31] VITALS: BP 129/82; PULSE 78; PULSE 81; RESP 14; TEMP 36.7; O2SAT 95; O2SAT 98; BMI 29.4
--- NOTE | 2018-03-18 13:40 | RAD_ITS ---
STUDY: X-RAY CHEST REASON FOR EXAM: Female, 52 years old. Chest pain since yesterday. TECHNIQUE: Single AP portable view of the chest. COMPARISON: Comparison is made with prior study dated January 13, 2018. FINDINGS: EKG electrodes are seen. The lungs are clear and expanded. There is no demonstrated pleural abnormality. Normal size heart. A left-sided dual-chamber pacemaker is seen. Normal mediastinum and archana. Normal visualized pulmonary arteries. Normal visualized aortic arch and descending thoracic aorta. Normal visualized thoracic spine. Normal visualized ribs, clavicles, and shoulders. There is no demonstrated abnormality of the visualized soft tissue structures of the upper abdomen. RAD/Chest 1 View (Portable) IMPRESSION: Normal x-ray examination of the chest. Electronically Signed: Mnig Roberts MD at 14:32 EST Tel [phone], Service support ,
--- NOTE | 2018-03-18 13:40 | EKG12_ITS ---
Test Reason : CP Blood Pressure : / mmHG Vent. Rate : 077 BPM Atrial Rate : 077 BPM P-R Int : 150 ms QRS Dur : 088 ms QT Int : 394 ms P-R-T Axes : 031 041 057 degrees QTc Int : 445 ms Normal sinus rhythm Possible Inferior infarct , age undetermined Cannot rule out Anterior infarct , age undetermined Abnormal ECG Confirmed by AIDEN GAUTAM, LEELEE ([id number]), field map editor KIM KIM ([id number]) on 03/19/2018 3:33:20 PM Referred By: MUKUND Confirmed By:LEELEE WOLFE MD
[2018-03-18 13:50] VITALS: O2SAT 96
[2018-03-18 14:00] LABS: Absolute Lymphocyte Count 4.79 X10^3/ul (0.83-4.51); Absolute Neutrophil Count 15.5 X10^3/uL (2.0-7.7); Basophil# 0.04 X10^3/uL; Basophil% 0.2 % (0-1); Eosinophil# 0.25 X10^3/uL; Eosinophils% 1.1 % (0-5); Hematocrit 45.5 % (37-47); Hemoglobin 15.3 g/dl (12.0-15.0); Lymphocyte # 4.79 X10^3/ul (4.0); Lymphocyte % 21.6 % (19-41); Mean Corp Hgb Conc 33.6 g/gl (32-36); Mean Corpuscular Hgb 31.2 pg (27.0-32.0); Mean Corpuscular Volume 92.7 fL (81-99); Mean Platelet Vol. 9.5 fl (6.2-12.0); Monocyte# 1.44 X10^3/uL; Monocyte% 6.5 % (0-10); Neutrophil # 15.46 X10^3/uL (2.7-7.7); Neutrophil % 69.8 % (47-70); Platelet Count 253 K/mm3 (150-450); RBC Distribution Width CV 13.3 % (11.6-14.6); RBC Distribution Width SD 44.9 fl (35.1-43.9); Red Blood Count 4.91 M/mm3 (4.2-5.4); White Blood Count 22.2 K/mm3 (4.4-11.0)
[2018-03-18 14:02] LABS: POSITIVE COUNT NO; POSITIVE DIFFERENTIAL NO; POSITIVE MORPHOLOGY NO
[2018-03-18 14:13] LABS: Anion Gap 11 (5-15); BUN 24 mg/dL (7-18); BUN/Creat Ratio 18.9 RATIO (10-20); Calcium,Total 9.4 mg/dL (8.5-10.1); Chloride 108 mmol/L (98-107); Creatinine, Serum 1.27 mg/dL (0.55-1.02); EST Glomerular Filtration Rate 47 mL/min (>60); Est Glom Filt Rate - Afr Amer 57 mL/min (>60); Estimated Creatinine Clearance 40.98 ml/min; Glucose 103 mg/dL (74-106); Potassium 3.6 mmol/L (3.5-5.1); Sodium Level 141 mmol/L (136-145)
[2018-03-18 14:33] VITALS: PULSE 72; RESP 15; O2SAT 97
--- NOTE | 2018-03-18 14:34 | ED.RN ---
pt is complaining about not receiving pain meds. dr terrell is aware. pt request to speak to charge nurse about her care. charge nurse notified. pt states I have been laying here in pain and you guys haven't helped me. pt reassured that blood work, ekg, and chest x-ray have been obtained. kyle sargent rn [id number]
--- NOTE | 2018-03-18 14:45 | ED.RN ---
Pain medication obtained from [facility]. pt asked Is that Tylenol?. pt informed that it was and without hesitation she said I refuse to take that. pt started taking her bp Cuf off and demanded her IV be removed. pt then requested the ed dr to come to her room. dr and ed charge aide talked with the patient about her concerns. no additional medication was ordered for her pain. IV was removed by charge aide. I re-entered to room to offer the patient a wheelchair to exit the facility at which point she stated Their is nothing wrong with me. I don't need that. pt was informed that I would really like to her to use the wheelchair due to her frequent falls. friend that was at bedside was asked to assist patient to car in wheelchair. pt then left the room and walked right by the wheelchair that was provided to her to ensure her safety. pt left prior to leaving her diagnoses or d/c instructions. business initiatives manager and hospital resource officer at back work station at time of elope. Willis Chatman rn [id number]
--- NOTE | 2018-03-18 14:59 | ED.VISSUMM ---
- ER Visit Summary Date of Service: 03/18/18 Chief Complaint: Chest pain History of Present Illness: The patient is a 52 F with history of syncope, apparently she had 3 syncopal episodes yesterday. She developed chest pain at the same time. She was examined in the emergency department but eloped prior to full evaluation. She is returning today with chest pain complaint, left arm pain and hip pain. She ambulated to the bed. Patient denies any head injury, the syncopal episodes were witnessed. She has no fever or chills. She has no abdominal pain. Physical Examination: Not appear in acute distress. She is quite conversive, laughing and told me I was too young to be a doctor. Moist mucous membranes, no obvious facial deformity No C-spine tenderness supple neck. Regular rate and rhythm without any obvious murmurs Clear lungs bilaterally speaking in full sentences without any obvious respiratory distress Abdomen soft and nontender no guarding or rebound Moves all extremities without any difficulty she has no pain to log rolling the left or right hip. She has some buttock tenderness. She is ambulating. She is complaining of left arm pain with paresthesias, she has normal flexion extension and normal strength. No vascular compromise. Skin does not show any obvious rashes or lesions, no trauma. Alert oriented ?3 with no gross focal deficit Emergency Department Course and Treatment: Was called to the room for pain control apparently she requested pain medications and I gave her Tylenol she was quite angry, however I have looked in the prior history and she has an extensive opiate addiction, including overdose. I do not believe it is appropriate to give her opiate analgesics for non-verifiable pain. She eloped from the emergency department and looking at her lab work I do notice she has some leukocytosis, I saw this after she left. Reviewing the chart she does have some chronic leukocytosis. I will attempt to call her so she can get an outpatient workup. Disposition: Eloped prior to full examination Impression: Chest pain Hip pain Left arm pain This note was generated with [employer] dictation software. It may contain incorrect words, spelling, and punctuation that were not noted in review of the chart prior to signing ED Disposition - Plan for ED Patient: Chief Complaint: Chest Pain Referrals: Michael Leon MD [Primary Care Provider] -
--- NOTE | 2018-03-18 15:05 | ED.DCSUM_ITS ---
- ER Visit Summary Date of Service: 03/18/18 Chief Complaint: Chest pain History of Present Illness: The patient is a 52 F with history of syncope, apparently she had 3 syncopal episodes yesterday. She developed chest pain at the same time. She was examined in the emergency department but eloped prior to full evaluation. She is returning today with chest pain complaint, left arm pain and hip pain. She ambulated to the bed. Patient denies any head injury, the syncopal episodes were witnessed. She has no fever or chills. She has no abdominal pain. Physical Examination: Not appear in acute distress. She is quite conversive, laughing and told me I was too young to be a doctor. Moist mucous membranes, no obvious facial deformity No C-spine tenderness supple neck. Regular rate and rhythm without any obvious murmurs Clear lungs bilaterally speaking in full sentences without any obvious respiratory distress Abdomen soft and nontender no guarding or rebound Moves all extremities without any difficulty she has no pain to log rolling the left or right hip. She has some buttock tenderness. She is ambulating. She is complaining of left arm pain with paresthesias, she has normal flexion extension and normal strength. No vascular compromise. Skin does not show any obvious rashes or lesions, no trauma. Alert oriented ?3 with no gross focal deficit Emergency Department Course and Treatment: Was called to the room for pain control apparently she requested pain medications and I gave her Tylenol she was quite angry, however I have looked in the prior history and she has an extensive opiate addiction, including overdose. I do not believe it is appropriate to give her opiate analgesics for non- verifiable pain. She eloped from the emergency department and looking at her lab work I do notice she has some leukocytosis, I saw this after she left. Reviewing the chart she does have some chronic leukocytosis. I will attempt to call her so she can get an outpatient workup. Disposition: Eloped prior to full examination Impression: Chest pain Hip pain Left arm pain This note was generated with [employer] dictation software. It may contain incorrect words, spelling, and punctuation that were not noted in review of the chart prior to signing ED Disposition - Plan for ED Patient: Chief Complaint: Chest Pain Referrals: Michael Leon MD [Primary Care Provider] -
== END 2018-03-18 15:00 | disposition left against medical advice (07) ==
PROVIDERS: Emergency Provider Emergency Medicine; Family Provider Family Medicine; PCP Family Medicine
DX: R07.9 Chest pain, unspecified (principal); M79.602 Pain in left arm; M25.559 Pain in unspecified hip; I49.5 Sick sinus syndrome; I25.10 Atherosclerotic heart disease of native coronary artery without angina pectoris; R55 Syncope and collapse; D72.829 Elevated white blood cell count, unspecified; R20.2 Paresthesia of skin; I10 Essential (primary) hypertension; Z79.899 Other long term (current) drug therapy; Z95.0 Presence of cardiac pacemaker
CPT/HCPCS: 71045; 80048; 84484; 85025; 93005; 99283; A4216

== ENCOUNTER → 2018-06-24 16:21 | Outpatient (CLI) | payer MEDICARE, MEDICAID, SELFPAY ==
[2018-06-24 18:29] LABS: ALB/GLOB Ratio 1.2 RATIO (0.9-2.4); AST(SGOT) 14 U/L (15-37); Alanine Aminotransfer ALT/SGPT 17 U/L (13-56); Albumin, Serum 3.9 g/dL (3.2-5.0); Alkaline Phosphatase 112 U/L (45-117); Anion Gap 7 (5-15); BUN 16 mg/dL (7-18); BUN/Creat Ratio 16.1 RATIO (10-20); Calcium,Total 8.8 mg/dL (8.5-10.1); Chloride 107 mmol/L (98-107); Cholesterol 247 mg/dL (200); Creatinine, Serum 0.99 mg/dL (0.55-1.02); EST Glomerular Filtration Rate 62 mL/min (>60); Est Glom Filt Rate - Afr Amer 75 mL/min (>60); Globulin 3.2 g/dL (2.2-4.2); Glucose 97 mg/dL (74-106); High Density Lipoprotein 37 mg/dL; Potassium 3.8 mmol/L (3.5-5.1); Protein, Total 7.1 g/dL (6.4-8.2); Sodium Level 142 mmol/L (136-145); T4 Free Direct 0.99 ng/dL (0.76-1.46); Triglycerides 309 mg/dL; Very Low Density Lipoprotein 62 mg/dL (5-40)
[2018-06-24 18:43] LABS: Vitamin D,25 Hydroxy 49.8 ng/mL (29.95-100.01)
== END ==
PROVIDERS: Family Provider Family Medicine; PCP Family Medicine; Referring Provider Family Medicine; Visit Provider Family Medicine
DX: I10 Essential (primary) hypertension (principal); E55.9 Vitamin D deficiency, unspecified; E03.9 Hypothyroidism, unspecified
CPT/HCPCS: 36415; 80053; 80061; 82306; 84439; 84443

== ENCOUNTER 2018-06-28 00:26 | Observation (INO) | payer MEDICARE, MEDICAID, SELFPAY ==
[2018-06-28] VITALS (18 sets, daily range): BP systolic 96–117; BP diastolic 56–70; PULSE 52–63; RESP 17–18; TEMP 36.8–37; O2SAT 95–100; BMI 30.1; BMI 30.2
[2018-06-28] MEDS: 0.9% Normal Saline 1,000 ML 150 ML IV (02:41)
[2018-06-28] MEDS: oxyCODONE 5 MG Tablet PO ×2 (02:49→11:39)
--- NOTE | 2018-06-28 04:59 | PCM.HP.STD ---
Problem List (1) Syncope and collapse Status: Chronic History of Present Illness Date of Admission: 06/28/18 Chief Complaint: Syncope with fall This is a 52-year-old female with a significant history of neuroendocrine tumor status post surgery; hypertension; depression; and anxiety bradycardia/sick sinus syndrome with pacemaker who presents with syncope with fall. Patient was ambulating and she had a syncopal episode and fell hitting her right head causing swelling to her right forehead. She denies any nausea; vomiting or diaphoresis associated with the syncope and fall. Patient initially went to [facility] Emergency Department where CT of the head was unremarkable. CT of facial bone facial showed right frontal scalp swelling. Troponin was unremarkable. Her BMP was unremarkable. Machine to interrogate pacemaker was not readily available at [facility] emergency department. Dr. Selwyn Ramirez, [facility], who is patient's smt technician was consulted from [facility] Emergency Department and recommended that patient should be admitted and monitored overnight. Because machine to integrate pacemaker was not immediately available at outside hospital and because there was no cardiology over the weekend (when patient reported) at the outside, emergency department doctor considered transferring patient to our hospital. Patient has a history of syncope. She reported that recently she had a syncopal episode but her smt technician wanted her to keep July 18, 2018 which had already been made. She reported that her PCP wants him to see a neurologist because of the syncope. He reported that other providers has attributed her syncope to the use of Ambien. But still the exact etiology of her syncope is yet to be unraveled. Past Medical History Past Medical History (Chronic Problems): Chronic Problems (Last Reviewed 06/28/18 @ 05:37 by Robel Abrams MD) Skin lesion of breast (Chronic) Right medial breast near sternum Neuroendocrine neoplasm of stomach (Chronic) Syncope and collapse (Chronic) Presence of cardiac pacemaker (Chronic) Sick sinus syndrome (Chronic) History of anxiety disorder (Chronic) Benign essential hypertension (Chronic) Obesity (Chronic) Familial combined hyperlipidemia (Chronic) Status post placement of cardiac pacemaker (Chronic) Tobacco dependence syndrome (Chronic) Chronic pain syndrome (Chronic) Chronic lower back pain (Chronic) Sinus pause (Chronic) Medical History: Medical History (Last Updated 06/28/18 @ 05:59 by Robel Abrams MD) h/o back surgery (Chronic) Neuroendocrine neoplasm of stomach (Chronic) D3A.8 History of anxiety disorder (Chronic) Z86.59 Benign essential hypertension (Chronic) I10 Obesity (Chronic) E66.9 Familial combined hyperlipidemia (Chronic) E78.4 Tobacco dependence syndrome (Chronic) F17.200 Chronic pain syndrome (Chronic) Chest tightness (Acute) R07.89 Chronic lower back pain (Chronic) M54.5, G89.29 Sinus pause (Chronic) I45.5 Allergies aspirin Adverse Reaction (Verified 03/18/18 13:35) Nausea/Vom/Diarrhea erythromycin base [Erythromycin Base] Adverse Reaction (Verified 03/18/18 13:35) Vomiting,diarrhea morphine Adverse Reaction (Verified 03/18/18 13:35) Nausea/Vom/Diarrhea NSAIDS (Non-Steroidal Anti-Inflamma Adverse Reaction (Verified 03/18/18 13:35) Vomiting,diarrhea Home Medications: Ambulatory Orders Medication Instructions Recorded Duloxetine Hcl [Cymbalta] 120 mg PO DAILY 03/28/15 Levothyroxine [Synthroid] 25 mcg PO DAILY 03/28/15 Lisinopril [Zestril] 20 mg PO BID 03/28/15 Metoprolol Tartrate [Lopressor 25 mg PO BID 03/28/15 (beta aislinn)] Tolterodine Tartrate [Tolterodine 4 mg PO DAILY 04/18/16 Tartrate ER] Lorazepam [Ativan] 1 mg PO BID PRN 08/22/16 Ferrous Sulfate 325 mg PO BID 09/11/16 Zolpidem Tartrate [Ambien] 10 mg PO QHS PRN 09/11/16 Amlodipine [Norvasc] 5 mg PO DAILY 05/17/17 Cholecalciferol (Vitamin D3) 50,000 unit PO TH 10/08/17 [Vitamin D3] pantoprazole 40 mg tablet,delayed 40 mg PO BID 12/27/17 release Ondansetron HCl [Zofran] 4 mg PO Q6H PRN PRN 01/02/18 Gabapentin [Neurontin] 300 mg PO TID 06/28/18 Surgical History: Surgical History (Last Updated 06/28/18 @ 06:00 by Robel Abrams MD) history excision neuroendocrine tumor (Chronic) Status post placement of cardiac pacemaker (Chronic) Z95.0 S/P appendectomy Z90.49 Open S/P hysterectomy Z90.710 S/P laparoscopy Z98.890 x 12 for endometriosis S/P laparotomy Z98.890 [address]3 [address] Pfannenstiel incision for endometriosis Surgical History: pacemaker implantation, - - elbow surgery, hysterectemy,appendectemy, sever lap surgeries on abd, removed masses in her neck Lives: Alone Smoking Status: Former smoker Drugs: None - *Family History Maternal Family History: Family History (Last Reviewed 12/27/17 @ 10:29 by Evangelina Greene) Daughter Asthma Father Heart disease Hypertension CAD (coronary artery disease) History Items: No pertinent history Review of Systems Constitutional: Denies: Chills, Fever, Weight Change HEENT: Denies: Head Aches, Sinus Congestion, Sinus Drainage Cardiovascular: Reports: Syncope. Denies: Chest Pain, Palpitations Respiratory: Denies: Cough, Shortness of breath at rest, Sputum production Gastrointestinal: Denies: Abdominal Pain, Nausea, Vomiting Genitourinary: Denies: Dysuria Musculoskeletal: Denies: Joint Pain, Joint Tenderness Skin: Denies: Rash, Wounds Neurological: Denies: Numbness, Tingling, Focal weakness Psychiatric: Denies: Anxiety, Depression, Homicidal Ideations, Suicidal Ideations Hematologic/ Lymphatic: Denies: Easy Bruising, Easy Bleeding VTE Information - Inpt Only VTE Present on Admission: No VTE Mechan Device Prophylaxis: SCD's VTE Pharm Prophylaxis ordered?: Yes - Physical Exam General: Alert, Oriented x3, Cooperative HEENT: Atraumatic, PERRLA, EOMI, Normocephalic Neck: Supple, No JVD, Negative Carotid Bruits Lungs: Clear to auscultation, Normal air movement Cardiovascular: No murmurs, Bradycardic Abdomen: Bowel Sounds Present, Soft, Non Tender Extremities: No edema, Capillary Refill Less than 3 Seconds Skin: No rashes, No breakdown Musculoskeletal: No Tenderness to Palpation of Joints or Extremities Neurological: Neuro grossly intact Psych/Mental Status: Normal Affect, Appropriate Vital Signs Temp Pulse Resp BP Pulse Ox 98.5 F 60 18 112/70 98 06/28/18 02:09 06/28/18 03:00 06/28/18 02:09 06/28/18 02:09 06/28/18 02:09 Oxygen Delivery Method Room Air Weight: 74.8 kg Body Mass Index (BMI) 30.1 Finger Stick Blood Glucose 92 Orthostatic Vital Signs Start: 06/28/18 01:57 Freq: q24h Status: Active Protocol: Activity Type Activity Date Activity User E-Sign Co-Sign Detail Recorded Client Recorded Date Recorded By Document 06/28/18 01:57 [id number] 06/28/18 02:04 JM8 06/28/18 01:57 Orthostatic Vitals Standing -Blood Pressure (90/60-120/80) 111/58 L -Extremity Use Left Arm -Pulse Rate (60-100) 61 Sitting -Blood Pressure (90/60-120/80) 102/64 -Extremity Use Left Arm -Pulse Rate (60-100) 53 L Lying -Blood Pressure (90/60-120/80) 112/70 -Extremity Use Left Arm -Pulse Rate (60-100) 54 L Assessment/Plan All Active Problems (Last Reviewed 06/28/18 @ 05:37 by Robel Abrams MD) Chest pain (Acute) Chest tightness (Acute) Accidental drug overdose (Resolved) Syncope (Resolved 12/16/12) This is a 52-year-old female with a significant history of bradycardia/sick sinus syndrome with pacemaker who presents with syncope with fall. Syncope with fall CT head from outside hospital independently reviewed showed no acute pathology. Patient reported that other providers attributed the previous syncope to ambulate. Of note patient takes Ambien 10 mg nightly. Also he is on scheduled Ativan. He reports that recently she was started on gabapentin. In the past she has been on buprenorphine patch ; Lyrica; and Skelaxin. She no longer takes this preceding 3 medications. Medication could be contributing to syncope.Hold Ativan. Decrease gabapentin dose. Hold Ambien Other different diagnosis include arrhythmia; orthostatic hypotension; vasovagal syncope or others. Notably patient is sinus bradycardia on the monitor. And while she says that her pacemaker was placed for sick sinus syndrome emergency department doctor reported that on conversation with the patient's smt technician, Dr. José, patient pacemaker was placed for bradycardia. Patient was sinus rhythm at outside hospital. Placed on PCU on telemetry Order to interrogate pacemaker Check 12-lead EKG. Orthostatic vitals ordered If workup is unremarkable consider discharging patient for patient to follow-up with his primary smt technician Dr. José. Normal saline IV hydration to replete intravascular volume. Hematoma of forehead CT facial done at outside hospital showed right frontal scalp swelling; dental disease; no facial bone fracture; and clear paranasal sinuses and mastoid air cells Apply ice to forehead. Tylenol as needed Hypertension On presentation his blood pressure was within goal. Amlodipine; metoprolol and lisinopril continued. Depression/anxiety Cymbalta continued. Ativan held Insomnia We will hold home Ambien and start patient on melatonin nightly if still remains at the hospital. Chronic back pain Will decrease gabapentin dose since it may be contributing to his syncope and fall. DVT prophylaxis Patient with recent hematoma of right frontal area. Will not order chemical chemoprophylaxis at this time. SCD ordered Code Visit OBSV E&M: 30083 Initial observation care L3
--- NOTE | 2018-06-28 05:04 | HP.PCM_ITS ---
Problem List (1) Syncope and collapse Status: Chronic History of Present Illness Date of Admission: 06/28/18 Chief Complaint: Syncope with fall This is a 52-year-old female with a significant history of neuroendocrine tumor status post surgery; hypertension; depression; and anxiety bradycardia/sick sinus syndrome with pacemaker who presents with syncope with fall. Patient was ambulating and she had a syncopal episode and fell hitting her right head c ausing swelling to her right forehead. She denies any nausea; vomiting or diaphoresis associated with the syncope and fall. Patient initially went to [facility] Emergency Department where CT of the head was unremarkable. CT of facial bone facial showed right frontal scalp swelling. Troponin was unremarkable. Her BMP was unremarkable. Machine to interrogate pacemaker was not readily available at [facility] emergency department. Dr. Selwyn Ramirez, [facility], who is patient's garment folder was consulted from [facility] Emergency Department and recommended that patient should be admitted and monitored overnight. Because machine to integrate pacemaker was not immediately available at outside hospital and because there was no cardiology over the weekend (when patient reported) at the outside, emergency department doctor considered transferring patient to our hospital. Patient has a history of syncope. She reported that recently she had a syncopal episode but her garment folder wanted her to keep July 18, 2018 which had already been made. She reported that her PCP wants him to see a neurologist because of the syncope. He reported that other providers has attributed her syncope to the use of Ambien. But still the exact etiology of her syncope is yet to be unraveled. Past Medical History Past Medical History (Chronic Problems): Chronic Problems (Last Reviewed 06/28/18 @ 05:37 by Robel Abrams MD) Skin lesion of breast (Chronic) Right medial breast near sternum Neuroendocrine neoplasm of stomach (Chronic) Syncope and collapse (Chronic) Presence of cardiac pacemaker (Chronic) Sick sinus syndrome (Chronic) History of anxiety disorder (Chronic) Benign essential hypertension (Chronic) Obesity (Chronic) Familial combined hyperlipidemia (Chronic) Status post placement of cardiac pacemaker (Chronic) Tobacco dependence syndrome (Chronic) Chronic pain syndrome (Chronic) Chronic lower back pain (Chronic) Sinus pause (Chronic) Medical History: Medical History (Last Updated 06/28/18 @ 05:59 by Robel Abrams MD) h/o back surgery (Chronic) Neuroendocrine neoplasm of stomach (Chronic) D3A.8 History of anxiety disorder (Chronic) Z86.59 Benign essential hypertension (Chronic) I10 Obesity (Chronic) E66.9 Familial combined hyperlipidemia (Chronic) E78.4 Tobacco dependence syndrome (Chronic) F17.200 Chronic pain syndrome (Chronic) Chest tightness (Acute) R07.89 Chronic lower back pain (Chronic) M54.5, G89.29 Sinus pause (Chronic) I45.5 Allergies aspirin Adverse Reaction (Verified 03/18/18 13:35) Nausea/Vom/Diarrhea erythromycin base [Erythromycin Base] Adverse Reaction (Verified 03/18/18 13:35) Vomiting,diarrhea morphine Adverse Reaction (Verified 03/18/18 13:35) Nausea/Vom/Diarrhea NSAIDS (Non-Steroidal Anti-Inflamma Adverse Reaction (Verified 03/18/18 13:35) Vomiting,diarrhea Home Medications: Ambulatory Orders Medication Instructions Recorded Duloxetine Hcl [Cymbalta] 120 mg PO DAILY 03/28/15 Levothyroxine [Synthroid] 25 mcg PO DAILY 03/28/15 Lisinopril [Zestril] 20 mg PO BID 03/28/15 Metoprolol Tartrate [Lopressor 25 mg PO BID 03/28/15 (beta aislinn)] Tolterodine Tartrate [Tolterodine 4 mg PO DAILY 04/18/16 Tartrate ER] Lorazepam [Ativan] 1 mg PO BID PRN 08/22/16 Ferrous Sulfate 325 mg PO BID 09/11/16 Zolpidem Tartrate [Ambien] 10 mg PO QHS PRN 09/11/16 Amlodipine [Norvasc] 5 mg PO DAILY 05/17/17 Cholecalciferol (Vitamin D3) 50,000 unit PO TH 10/08/17 [Vitamin D3] pantoprazole 40 mg tablet,delayed 40 mg PO BID 12/27/17 release Ondansetron HCl [Zofran] 4 mg PO Q6H PRN PRN 01/02/18 Gabapentin [Neurontin] 300 mg PO TID 06/28/18 Surgical History: Surgical History (Last Updated 06/28/18 @ 06:00 by Robel Abrams MD) history excision neuroendocrine tumor (Chronic) Status post placement of cardiac pacemaker (Chronic) Z95.0 S/P appendectomy Z90.49 Open S/P hysterectomy Z90.710 S/P laparoscopy Z98.890 x 12 for endometriosis S/P laparotomy Z98.890 x3 Via Pfannenstiel incision for endometriosis Surgical History: pacemaker implantation, - - elbow surgery, hysterectemy,appendectemy, sever lap surgeries on abd, removed masses in her ne ck Lives: Alone Smoking Status: Former smoker Drugs: None - *Family History Maternal Family History: Family History (Last Reviewed 12/27/17 @ 10:29 by Evangelina Greene) Daughter Asthma Father Heart disease Hypertension CAD (coronary artery disease) History Items: No pertinent history Review of Systems Constitutional: Denies: Chills, Fever, Weight Change HEENT: Denies: Head Aches, Sinus Congestion, Sinus Drainage Cardiovascular: Reports: Syncope. Denies: Chest Pain, Palpitations Respiratory: Denies: Cough, Shortness of breath at rest, Sputum production Gastrointestinal: Denies: Abdominal Pain, Nausea, Vomiting Genitourinary: Denies: Dysuria Musculoskeletal: Denies: Joint Pain, Joint Tenderness Skin: Denies: Rash, Wounds Neurological: Denies: Numbness, Tingling, Focal weakness Psychiatric: Denies: Anxiety, Depression, Homicidal Ideations, Suicidal Ideations Hematologic/ Lymphatic: Denies: Easy Bruising, Easy Bleeding VTE Information - Inpt Only VTE Present on Admission: No VTE Mechan Device Prophylaxis: SCD's VTE Pharm Prophylaxis ordered?: Yes - Physical Exam General: Alert, Oriented x3, Cooperative HEENT: Atraumatic, PERRLA, EOMI, Normocephalic Neck: Supple, No JVD, Negative Carotid Bruits Lungs: Clear to auscultation, Normal air movement Cardiovascular: No murmurs, Bradycardic Abdomen: Bowel Sounds Present, Soft, Non Tender Extremities: No edema, Capillary Refill Less than 3 Seconds Skin: No rashes, No breakdown Musculoskeletal: No Tenderness to Palpation of Joints or Extremities Neurological: Neuro grossly intact Psych/Mental Status: Normal Affect, Appropriate Vital Signs Temp Pulse Resp BP Pulse Ox 98.5 F 60 18 112/70 98 06/28/18 02:09 06/28/18 03:00 06/28/18 02:09 06/28/18 02:09 06/28/18 02:09 Oxygen Delivery Method Room Air Weight: 74.8 kg Body Mass Index (BMI) 30.1 Finger Stick Blood Glucose 92 Orthostatic Vital Signs Start: 06/28/18 01:57 Freq: q24h Status: Active Protocol: Activity Type Activity Date Activity User E-Sign Co-Sign Detail Recorded Client Recorded Date Recorded By Document 06/28/18 01:57 [id number] 06/28/18 02:04 [email or web address] 06/28/18 01:57 Orthostatic Vitals Standing -Blood Pressure (90/60-120/80) 111/58 L -Extremity Use Left Arm -Pulse Rate (60-100) 61 Sitting -Blood Pressure (90/60-120/80) 102/64 -Extremity Use Left Arm -Pulse Rate (60-100) 53 L Lying -Blood Pressure (90/60-120/80) 112/70 -Extremity Use Left Arm -Pulse Rate (60-100) 54 L Assessment/Plan All Active Problems (Last Reviewed 06/28/18 @ 05:37 by Robel Abrams MD) Chest pain (Acute) Chest tightness (Acute) Accidental drug overdose (Resolved) Syncope (Resolved 12/16/12) This is a 52-year-old female with a significant history of bradycardia/sick sinus syndrome with pacemaker who presents with syncope with fall. Syncope with fall CT head from outside hospital independently reviewed showed no acute pathology. Patient reported that other providers attributed the previous syncope to ambulate. Of note patient takes Ambien 10 mg nightly. Also he is on scheduled Ativan. He reports that recently she was started on gabapentin. In the past she has been on buprenorphine patch ; Lyrica; and Skelaxin. She no longer takes this preceding 3 medications. Medication could be contributing to syncope.Hold Ativan. Decrease gabapentin dose. Hold Ambien Other different diagnosis include arrhythmia; orthostatic hypotension; vasovagal syncope or others. Notably patient is sinus bradycardia on the monitor. And while she says that her pacemaker was placed for sick sinus syndrome emergency department doctor reported that on conversation with the patient's garment folder, Dr. José, patient pacemaker was placed for bradycardia. Patient was sinus rhythm at outside hospital. Placed on PCU on telemetry Order to interrogate pacemaker Check 12-lead EKG. Orthostatic vitals ordered If workup is unremarkable consider discharging patient for patient to follow-up with his primary garment folder Dr. José. Normal saline IV hydration to replete intravascular volume. Hematoma of forehead CT facial done at outside hospital showed right frontal scalp swelling; dental disease; no facial bone fracture; and clear paranasal sinuses and mastoid air cells Apply ice to forehead. Tylenol as needed Hypertension On presentation his blood pressure was within goal. Amlodipine; metoprolol and lisinopril continued. Depression/anxiety Cymbalta continued. Ativan held Insomnia We will hold home Ambien and start patient on melatonin nightly if still remains at the hospital. Chronic back pain Will decrease gabapentin dose since it may be contributing to his syncope and fall. DVT prophylaxis Patient with recent hematoma of right frontal area. Will not order chemical chemoprophylaxis at this time. SCD ordered Code Visit OBSV E&M: 80366 Initial observation care L3
--- NOTE | 2018-06-28 05:35 | EKG12_ITS ---
Test Reason : Blood Pressure : / mmHG Vent. Rate : 052 BPM Atrial Rate : 052 BPM P-R Int : 198 ms QRS Dur : 086 ms QT Int : 458 ms P-R-T Axes : 045 045 055 degrees QTc Int : 425 ms Sinus bradycardia Otherwise normal ECG When compared with ECG of 18-MAR-2018 13:43, Vent. rate has decreased BY 25 BPM Confirmed by ALYSSIA CORTEZ ([id number]), purchasing expeditor OTIS RUIZ ([id number]) on 07/03/2018 11:08:12 AM Referred By: Robel bArams Confirmed By:ALYSSIA CORTEZ
[2018-06-28] MEDS: Levothyroxine 25 MCG TABLET PO (06:32)
[2018-06-28] MEDS: Gabapentin 100 MG Capsule PO ×3 (06:32→21:01)
[2018-06-28 06:55] LABS: Anion Gap 5 (5-15); BUN 18 mg/dL (7-18); BUN/Creat Ratio 19.7 RATIO (10-20); Calcium,Total 8.9 mg/dL (8.5-10.1); Chloride 112 mmol/L (98-107); Creatinine, Serum 0.92 mg/dL (0.55-1.02); EST Glomerular Filtration Rate 68 mL/min (>60); Est Glom Filt Rate - Afr Amer 83 mL/min (>60); Estimated Creatinine Clearance 56.57 ml/min; Glucose 115 mg/dL (74-106); Potassium 3.5 mmol/L (3.5-5.1); Sodium Level 145 mmol/L (136-145)
[2018-06-28] MEDS: Metoprolol Tartrate 25 MG Tablet PO ×2 (08:44→21:01)
[2018-06-28] MEDS: DULoxetine Hcl 60 MG Capsule 120 MG PO (08:44)
[2018-06-28] MEDS: Tolterodine Tartrate 4 MG CAP.SA PO (08:44)
[2018-06-28] MEDS: Pantoprazole Sodium 40 MG Tablet PO ×2 (08:45→21:01)
[2018-06-28] MEDS: amLODIPine 5 MG Tablet PO (08:45)
[2018-06-28] MEDS: Acetaminophen 325 MG Tablet 650 MG PO (08:46)
[2018-06-28] MEDS: Lisinopril 20 MG Tablet PO (11:39)
[2018-06-28] MEDS: Ferrous Sulfate 325 MG Tablet PO ×2 (11:40→18:49)
[2018-06-28] MEDS: LORazepam 1 MG Tablet PO ×2 (13:31→21:31)
--- NOTE | 2018-06-28 17:00 | PCM.HOSP.N ---
Hospitalist Note Patient was seen and examined today, her pacemaker interrogation did not reveal any abnormalities. Patient's systolic blood pressure has been in the low 100s today. I have decided to hold the patient's blood pressure medications other than her metoprolol. I will continue to monitor the patient on telemetry, she walked in the hallway this afternoon and felt lightheaded.
[2018-06-28] MEDS: traMADol 50 MG Tablet 25 MG PO (20:59)
[2018-06-28] MEDS: MELATONIN 3 MG TABLET PO (21:01)
[2018-06-29] VITALS (8 sets, daily range): BP systolic 113–133; BP diastolic 76–87; PULSE 57–64; RESP 16–18; TEMP 36.5–36.9; O2SAT 96–98
[2018-06-29] MEDS: Gabapentin 100 MG Capsule PO ×2 (05:59→13:30)
[2018-06-29] MEDS: traMADol 50 MG Tablet 25 MG PO ×2 (05:59→13:52)
[2018-06-29] MEDS: Levothyroxine 25 MCG TABLET PO (05:59)
[2018-06-29] MEDS: LORazepam 1 MG Tablet PO ×2 (06:00→13:53)
--- NOTE | 2018-06-29 09:15 | NURSING ---
Patient told INSPECTOR RECEIVING that she got up to go to the bathroom on her own and fell. States she got herself back in bed. No injuries noted. FROM. VSS. Neuro checks within normal limits. Patient denied dizziness/lightheadedness then states she was dizzy. Dr. Krueger to be made aware.
[2018-06-29] MEDS: Tolterodine Tartrate 4 MG CAP.SA PO (09:57)
[2018-06-29] MEDS: Pantoprazole Sodium 40 MG Tablet PO (09:57)
[2018-06-29] MEDS: Metoprolol Tartrate 25 MG Tablet PO (09:57)
[2018-06-29] MEDS: DULoxetine Hcl 60 MG Capsule 120 MG PO (09:57)
[2018-06-29] MEDS: 0.9% NaCl Peripheral Flush Adult/Peds IV (09:58)
[2018-06-29] MEDS: Ondansetron 4 MG/2 ML Vial IV (09:58)
--- NOTE | 2018-06-29 10:28 | DCINST_ITS ---
You will use the following diet at home:: No restrictions Your food should be the consistency of: Regular Your liquids should be the consistency of: Regular/Thin Discharge Activity: Return to Normal Activity Weight Bearing Status: Full weight bearing Allergies/Adverse Reactions: Allergies aspirin Adverse Reaction (Verified 03/18/18 13:35) Nausea/Vom/Diarrhea erythromycin base [Erythromycin Base] Adverse Reaction (Verified 03/18/18 13:35) Vomiting,diarrhea morphine Adverse Reaction (Verified 03/18/18 13:35) Nausea/Vom/Diarrhea NSAIDS (Non-Steroidal Anti-Inflamma Adverse Reaction (Verified 03/18/18 13:35) Vomiting,diarrhea Medications to take at Discharge Duloxetine Hcl [Cymbalta] 120 mg PO DAILY 03/28/15 Levothyroxine [Synthroid] 25 mcg PO DAILY 03/28/15 Metoprolol Tartrate [Lopressor (beta aislinn)] 25 mg PO BID 03/28/15 Tolterodine Tartrate [Tolterodine Tartrate ER] 4 mg PO DAILY 04/18/16 Lorazepam [Ativan] 1 mg PO BID PRN 08/22/16 Ferrous Sulfate 325 mg PO BID 09/11/16 Zolpidem Tartrate [Ambien] 10 mg PO QHS PRN 09/11/16 Cholecalciferol (Vitamin D3) [Vitamin D3] 50,000 unit PO TH 10/08/17 pantoprazole 40 mg tablet,delayed release 40 mg PO BID 12/27/17 Ondansetron HCl [Zofran] 4 mg PO Q6H PRN PRN 01/02/18 Gabapentin [Neurontin] 300 mg PO TID 06/28/18 Lisinopril [Zestril] 20 mg PO DAILY #1 tablet 06/29/18 The following prescriptions were given: Lisinopril [Zestril] 20 mg PO DAILY #1 tablet Primary Care Physician: Michael Leon MD [Primary Care Provider] - Please follow up with your Primary Care Physician in: this week (later in week) and get blood pressure checked Test Results: Test results from this visit will be discussed in further detail at your follow- up appointment, if applicable.
--- NOTE | 2018-06-29 11:50 | RAD_ITS ---
STUDY: X-RAY - PELVIS AND LEFT HIP REASON FOR EXAM: Female, 52 years old. Fall TECHNIQUE: 3 views of the pelvis and hip. COMPARISON: 02/18/2018 FINDINGS: There is fusion hardware noted in the lower lumbar spine. There is no fracture or dislocation in the pelvis or left hip. There mild degenerative changes in the left hip. RAD/HIP, UNI W/ Pelvis 2-3 Views IMPRESSION: No fracture or dislocation of the pelvis or left hip. Mild degenerative change. Electronically Signed: Rupesh Bradshaw, at 13:58 EDT Tel , Service support ,
[2018-06-29] MEDS: Ferrous Sulfate 325 MG Tablet PO (13:30)
--- NOTE | 2018-06-29 13:50 | NURSING ---
Patient stated that she feels like she pulled a muscle in her chest. RN placed order for EKG and called RT regarding same. Patient then states to RN there is nothing wrong with my chest. Cancel the EKG. Patient refused EKG and same not done. Informed RT of same.
--- NOTE | 2018-06-29 14:15 | NURSING ---
Discussed with patient in detail about her blood pressure medications regarding changes that were made. Patient encouraged to check blood pressure prior to taking medications. Patient informed that she needs to follow up with her PCP later this week to have her blood pressure checked. Patient voiced understanding of same.
--- NOTE | 2018-06-30 17:31 | DS.PCM_ITS ---
Discharge Date and Diagnosis Date of Admission: 06/28/18 Date of Discharge: 06/29/18 - Primary Discharge Diagnosis #1 syncope-etiology unclear #2 hypertension #3 depression/anxiety - Secondary Discharge Diagnosis Chronic Problems (Last Updated 06/28/18 @ 05:59 by Robel Abrams MD) Sick sinus syndrome (Chronic) Presence of cardiac pacemaker (Chronic) Syncope and collapse (Chronic) Skin lesion of breast (Chronic) Right medial breast near sternum h/o back surgery (Chronic) history excision neuroendocrine tumor (Chronic) Neuroendocrine neoplasm of stomach (Chronic) History of anxiety disorder (Chronic) Benign essential hypertension (Chronic) Obesity (Chronic) Familial combined hyperlipidemia (Chronic) Status post placement of cardiac pacemaker (Chronic) Tobacco dependence syndrome (Chronic) Chronic pain syndrome (Chronic) Chronic lower back pain (Chronic) Sinus pause (Chronic) Hospital Course and Treatment Operations: None Procedures: - - Pacemaker interrogation Summary of Care Provided: The patient is a 52 year old F who was directly admitted to PCU from the emergency room at a [facility] [place] where she went for evaluation of an acute syncopal episode. [place] in [place] [facility] [place], patient was placed in observation status on PCU, she was seen by PT and OT, and she underwent pacemaker interrogation which did not show any abnormality. Patient's blood pressure medicine medication was reduced due to concerns of low blood pressure with medication. Patient sustained a fall in the hospital while she was in the shower and landed on her hip but there was no evidence of a fracture on x-rays. On 06/29/2018, patient was seen and examined and felt to be in stable condition for discharge home. Physical exam: On examination she appeared in good health and spirits. Vital signs as documented. Skin warm and dry and without overt rashes. Neck without JVD. Lungs clear. Heart exam notable for regular rhythm, normal sounds and absence of murmurs, rubs or gallops. Abdomen unremarkable and without evidence of organomegaly, masses, or abdominal aortic enlargement. Extremities nonedematous. Neuro: Cranial nerves II through XII are grossly intact, no focal motor deficits were noted, sensation to light touch and pinprick is intact. Psych: Patient is alert and oriented x3, she does not appear anxious or depressed - Physical Exam Vital Signs Temp Pulse Resp BP Pulse Ox 98.1 F 64 16 113/87 H 97 06/29/18 14:10 06/29/18 14:10 06/29/18 14:10 06/29/18 14:10 06/29/18 14:10 Oxygen Delivery Method Room Air Weight: 74.8 kg Body Mass Index (BMI) 30.1 Finger Stick Blood Glucose 92 Intake and Output for Last 24 Hours 06/28/18 06/29/18 06/30/18 23:59 23:59 23:59 Intake Total 2080 600 / 600 Balance 2080 600 / 600 Discharge Activity: Return to Normal Activity Weight Bearing Status: Full weight bearing Home Medications: Medications to take at Discharge Duloxetine Hcl [Cymbalta] 120 mg PO DAILY 03/28/15 Levothyroxine [Synthroid] 25 mcg PO DAILY 03/28/15 Metoprolol Tartrate [Lopressor (beta aislinn)] 25 mg PO BID 03/28/15 Tolterodine Tartrate [Tolterodine Tartrate ER] 4 mg PO DAILY 04/18/16 Lorazepam [Ativan] 1 mg PO BID PRN 08/22/16 Ferrous Sulfate 325 mg PO BID 09/11/16 Zolpidem Tartrate [Ambien] 10 mg PO QHS PRN 09/11/16 Cholecalciferol (Vitamin D3) [Vitamin D3] 50,000 unit PO TH 10/08/17 pantoprazole 40 mg tablet,delayed release 40 mg PO BID 12/27/17 Ondansetron HCl [Zofran] 4 mg PO Q6H PRN PRN 01/02/18 Gabapentin [Neurontin] 300 mg PO TID 06/28/18 Lisinopril [Zestril] 20 mg PO DAILY #1 tablet 06/29/18 Following Prescrptions Were Given to Patient: Lisinopril [Zestril] 20 mg PO DAILY #1 tablet Primary Care Physician: Michael Leon MD [Primary Care Provider] - Please follow up with your Primary Care Physician in: this week (later in week) and get blood pressure checked Disposition: Home Minutes spent on discharge:: 30 Patient Condition:: Stable Medical Necessity - Tobacco Use Smoking Status: Former smoker Meaningful Use Info Meaningful Use Diagnoses (Choose all that apply): None applicable Code Visit OBSV E&M: 41534 Observation care discharge
== END 2018-06-29 11:58 | disposition home or self-care (01) ==
PROVIDERS: Admitting Provider Hospitalist; Family Provider Family Medicine; PCP Family Medicine; Referring Provider Hospitalist; Visit Provider Internal Medicine
DX: R55 Syncope and collapse (principal); I10 Essential (primary) hypertension; F32.9 Major depressive disorder, single episode, unspecified; S00.83XA Contusion of other part of head, initial encounter; F41.9 Anxiety disorder, unspecified; E66.9 Obesity, unspecified; E78.49 Other hyperlipidemia; G89.4 Chronic pain syndrome; Z87.891 Personal history of nicotine dependence; Z95.0 Presence of cardiac pacemaker; Z79.899 Other long term (current) drug therapy; Z68.30 Body mass index [BMI] 30.0-30.9, adult; Z71.3 Dietary counseling and surveillance; W19.XXXA Unspecified fall, initial encounter; Y93.01 Activity, walking, marching and hiking; Y92.9 Unspecified place or not applicable
CPT/HCPCS: 36415; 73502; 80048; 93005; 96361; 96374; 97116; 97162; 97166; 97530; 99218; J7030; A4216; G0378; G0379; J2405

== ENCOUNTER → 2018-07-17 08:52 | Outpatient (CLI) | payer MEDICARE, MEDICAID, SELFPAY ==
[2018-06-28 00:58] VITALS: BMI 30.1
[2018-07-17 09:20] LABS: Absolute Lymphocyte Count 2.96 X10^3/ul (0.83-4.51); Absolute Neutrophil Count 6.1 X10^3/uL (2.0-7.7); Basophil# 0.03 X10^3/uL; Basophil% 0.3 % (0-1); Eosinophil# 0.25 X10^3/uL; Eosinophils% 2.5 % (0-5); Hematocrit 42.9 % (37-47); Hemoglobin 14.3 g/dl (12.0-15.0); Lymphocyte # 2.96 X10^3/ul (4.0); Lymphocyte % 29.2 % (19-41); Mean Corp Hgb Conc 33.3 g/gl (32-36); Mean Corpuscular Hgb 30.9 pg (27.0-32.0); Mean Corpuscular Volume 92.7 fL (81-99); Mean Platelet Vol. 9.2 fl (6.2-12.0); Monocyte# 0.71 X10^3/uL; Neutrophil # 6.14 X10^3/uL (2.7-7.7); Neutrophil % 60.7 % (47-70); Platelet Count 237 K/mm3 (150-450); RBC Distribution Width CV 13.7 % (11.6-14.6); RBC Distribution Width SD 45.8 fl (35.1-43.9); Red Blood Count 4.63 M/mm3 (4.2-5.4); White Blood Count 10.1 K/mm3 (4.4-11.0)
[2018-07-17 09:39] LABS: Differential Indicated SCAN CRITERIA MET; POSITIVE COUNT NO; POSITIVE DIFFERENTIAL NO; POSITIVE MORPHOLOGY YES
--- NOTE | 2018-07-17 16:55 | PCM.TILTTABL ---
- Summary Pre Test Resting HR: 60 Pre Test Resting BP: 136/66 Minimum Test HR: 51 Maximum Test HR: 60 Minimum Test BP: 109/84 Maximum Test BP: 137/70 Physician Tilt Table Report - Patient's Physicians Primary Care Physician: Michael Leon Indications/Diagnosis: Syncope Procedure Comments: The patient was brought to the noninvasive lab in the postabsorptive state. The resting blood pressure was noted to be 136/66 mmHg with a heart rate of 60 bpm which was at not ventricular paced. The patient was then placed in the 70 degree head upright tilt position and the patient stayed in this position for 20 minutes. The minimum heart rate was 51 bpm the patient complained of hip and back pain but there were no hemodynamic issues. There was no drop in blood pressure or syncopal episodes noted. Summary: Head upright tilt table with no hemodynamic consequences noted.
[2018-07-17 16:58] VITALS: BP 109/84; BP 136/66; BP 137/70
== END ==
PROVIDERS: Family Provider Family Medicine; PCP Family Medicine; Referring Provider Family Medicine; Visit Provider Family Medicine
DX: R55 Syncope and collapse (principal)
CPT/HCPCS: 36415; 85025; 93660; J7040; A4216

== ENCOUNTER 2018-07-21 16:15 | Observation (INO) | payer MEDICARE, MEDICAID, SELFPAY ==
[2018-06-28 00:58] VITALS: BMI 30.1
[2018-07-21 16:16] VITALS: BP 146/84; PULSE 73; RESP 16; TEMP 36.9; O2SAT 96; BMI 33.7
--- NOTE | 2018-07-21 16:34 | EKG12_ITS ---
Test Reason : CP Blood Pressure : / mmHG Vent. Rate : 073 BPM Atrial Rate : 073 BPM P-R Int : 168 ms QRS Dur : 082 ms QT Int : 412 ms P-R-T Axes : 050 043 056 degrees QTc Int : 453 ms Normal sinus rhythm Normal ECG Confirmed by AIDEN GAUTAM, LEELEE ([id number]), brands editor OTIS RUIZ ([id number]) on 07/23/2018 1:33:51 PM Referred By: Keith Ribeiro Confirmed By:LEELEE WOLFE MD
--- NOTE | 2018-07-21 16:38 | ED.DCSUM_ITS ---
- ER Visit Summary Date of Service: 07/21/18 Chief Complaint: Chest pain History of Present Illness: The patient is a 52 F who presents for 2 days of chest pain. Pain is substernal and left-sided, constantly present at a low level but intermittent worsening and sharp shooting pains in the left chest with radiation towards the shoulder. Currently a 7 out of 10. Patient was seen at Dr. Pride's office and sent here for further work-up because of the crushing chest pain and looking pale. Patient has associated shortness of breath and nausea. She states she felt better after nitroglycerin. She has been off her hypertension medications for 1 month due to syncope from hypotension. Patient has sick sinus syndrome and a pacemaker. She is not on any blood thinners. She is allergic to aspirin. Patient denies smoking. Physical Examination: Vital signs: afebrile, hemodynamically stable, no hypoxia on room air General: well nourished, well developed, in no distress Skin: warm, dry, no rash, no pallor HEENT: normocephalic and atraumatic; PERRL, EOMI, moist mucous membranes Cardiovascular: regular rate and rhythm without murmurs, no peripheral edema, 2+ pulses all distal extremities Respiratory: No increased work of breathing, lungs are clear to auscultation bilaterally, no rales, rhonchi or wheezing Abdominal: Abdomen is soft, nontender with normoactive bowel sounds, no guarding or rebound, no masses MSK: Moves all extremities, no deformities, normal strength Neuro: Awake and alert, oriented ?4. No facial droop, sensation and motor function intact and symmetric Test Results: Abnormal Lab Results 07/21/18 07/21/18 16:20 16:20 WBC 12.5 H RBC 4.60 Hgb 14.5 Hct 42.2 MCV 91.7 MCH 31.5 MCHC 34.4 RDW 13.7 RDW Differential 45.2 H Plt Count 259 MPV 10.1 Immature Gran % (Auto) 0.300 Neut % (Auto) 61.5 Lymph % (Auto) 30.1 [place] % (Auto) 5.8 Eos % (Auto) 2.1 Baso % (Auto) 0.2 Absolute Neuts (auto) 7.7 Absolute Lymphs (auto) 3.75 Total Counted Not Reportable Sodium 142 Potassium 3.8 Chloride 112 H Carbon Dioxide 24.0 Anion Gap 6 BUN 18 Creatinine 1.27 H Estim Creat Clear Calc 40.98 Est GFR (MDRD) Af Amer 57 L Est GFR (MDRD) Non-Af 47 L BUN/Creatinine Ratio 14.2 Glucose 100 Calcium 9.3 Troponin I < 0.015 Clinical Impression(s) from Imaging Studies Chest X-Ray 07/21/18 16:57 IMPRESSION: Degenerative changes, as described above. No demonstrated acute cardiopulmonary process. Electronically Signed: Arthur Loza MD at 17:33 EDT , Service support , Medications Given Discontinued Medications Sodium Chloride () 1,000 mls @ 1,000 mls/hr IV .Q1H ONE Stop: 07/21/18 17:33 Last Admin: 07/21/18 16:47 Dose: 1,000 mls/hr Morphine Sulfate () 4 mg IV X1 ONE Stop: 07/21/18 18:35 Nitroglycerin (Nitrostat) 0.4 mg SUBLINGUAL X1 ONE Stop: 07/21/18 16:35 Last Admin: 07/21/18 16:47 Dose: 0.4 mg Emergency Department Course and Treatment: Aspirin was not given as patient is a llergic. She did have improvement with the nitroglycerin from EMS but is complaining of a headache. Patient was given additional nitroglycerin. EKG showed a sinus rhythm without any ischemic changes. Troponin was negative. Creatinine was mildly elevated above patient's baseline and she was given normal saline for hydration. Patient was given Tylenol for her headache. She was had improvement of her chest pain but continued discomfort in the left shoulder region and was given morphine. Patient's heart score is 4, and given her concerning episode of the crushing chest pain and pallor prior to presentation in the emergency department, she would benefit from admission as observation status for further chest pain work-up. She was discussed with Dr. Ribeiro for admission. Treatment Plan: [] Disposition: [] Impression: Substernal and left-sided chest pain This note was generated with [employer]ish[employer] software. It may contain incorrect words, spelling, and punctuation that were not noted in review of the chart prior to signing ED Disposition - Plan for ED Patient: Referrals: Michael Leon MD [Primary Care Provider] -
[2018-07-21 16:44] VITALS: O2SAT 95
[2018-07-21] MEDS: 0.9% Normal Saline 1,000 ML 1000 ML IV (16:47)
[2018-07-21] MEDS: Nitroglycerin SL (ED/IMG/CATH) 0.4 MG TABLET SUBLINGUAL (16:47)
--- NOTE | 2018-07-21 16:57 | RAD_ITS ---
STUDY: X-RAY CHEST REASON FOR EXAM: Female, 52 years old. Chest pain. Nausea TECHNIQUE: PA and lateral views of the chest. COMPARISON: March 18, 2018 FINDINGS: There is stable pacemaker device on the left. There are monitoring devices. The lungs are clear and expanded. There is no demonstrated pleural abnormality. Normal size heart. Normal mediastinum and archana. Normal visualized pulmonary arteries. Normal visualized aortic arch and descending thoracic aorta. There are diffuse degenerative changes of the visualized thoracic spine. Normal visualized ribs, clavicles, and shoulders. There is no demonstrated abnormality of the visualized soft tissue structures of the upper abdomen. RAD/Chest PA and Lateral IMPRESSION: Degenerative changes, as described above. No demonstrated acute cardiopulmonary process. Electronically Signed: Arthur Loza MD at 17:33 EDT , Service support ,
[2018-07-21 17:35] VITALS: BP 119/70; PULSE 66; RESP 18
[2018-07-21 18:03] LABS: Absolute Lymphocyte Count 3.75 X10^3/ul (0.83-4.51); Absolute Neutrophil Count 7.7 X10^3/uL (2.0-7.7); Basophil# 0.03 X10^3/uL; Basophil% 0.2 % (0-1); Eosinophil# 0.26 X10^3/uL; Eosinophils% 2.1 % (0-5); Hematocrit 42.2 % (37-47); Hemoglobin 14.5 g/dl (12.0-15.0); Lymphocyte # 3.75 X10^3/ul (4.0); Lymphocyte % 30.1 % (19-41); Mean Corp Hgb Conc 34.4 g/gl (32-36); Mean Corpuscular Hgb 31.5 pg (27.0-32.0); Mean Corpuscular Volume 91.7 fL (81-99); Mean Platelet Vol. 10.1 fl (6.2-12.0); Monocyte# 0.72 X10^3/uL; Monocyte% 5.8 % (0-10); Neutrophil # 7.65 X10^3/uL (2.7-7.7); Neutrophil % 61.5 % (47-70); POSITIVE COUNT NO; POSITIVE DIFFERENTIAL NO; POSITIVE MORPHOLOGY NO; Platelet Count 259 K/mm3 (150-450); RBC Distribution Width CV 13.7 % (11.6-14.6); RBC Distribution Width SD 45.2 fl (35.1-43.9); White Blood Count 12.5 K/mm3 (4.4-11.0)
[2018-07-21 18:17] LABS: Anion Gap 6 (5-15); BUN 18 mg/dL (7-18); BUN/Creat Ratio 14.2 RATIO (10-20); Calcium,Total 9.3 mg/dL (8.5-10.1); Chloride 112 mmol/L (98-107); Creatinine, Serum 1.27 mg/dL (0.55-1.02); EST Glomerular Filtration Rate 47 mL/min (>60); Est Glom Filt Rate - Afr Amer 57 mL/min (>60); Estimated Creatinine Clearance 40.98 ml/min; Glucose 100 mg/dL (74-106); Potassium 3.8 mmol/L (3.5-5.1); Sodium Level 142 mmol/L (136-145)
--- NOTE | 2018-07-21 18:46 | PCM.HP.STD ---
Problem List (1) Sick sinus syndrome Status: Chronic (2) Presence of cardiac pacemaker Status: Chronic (3) History of anxiety disorder Status: Chronic (4) Benign essential hypertension Status: Chronic (5) Familial combined hyperlipidemia Status: Chronic (6) Tobacco dependence syndrome Status: Chronic History of Present Illness Date of Admission: 07/21/18 Chief Complaint: Chest pain. The patient is a 52 year old F with past medical history as mentioned above presented to the emergency room because of chest pain. 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 Her symptoms started 2 days ago with central chest pain, retrosternal, sharp shooting pain, sometimes goes to the left side, radiates to the left shoulder, associated with mild shortness of breath and nausea and without aggravating or relieving factors. When I saw the patient, patient mentioned that her pain is probably 8 or 9 in severity although she was not tachycardic, was not dyspneic and tachypneic. In the emergency department, her vital signs were stable. Her routine blood work was remarkable for mild leukocytosis, creatinine of 1.27, otherwise normal. EKG revealed normal sinus rhythm, normal NH interval, normal QRS, normal QTC, no acute ischemic changes. Chest x-ray showed no acute findings. Troponin is negative. She is being admitted for chest pain for evaluation. Past Medical History Past Medical History (Chronic Problems): Chronic Problems (Last Updated 07/21/18 @ 18:46 by Keith Ribeiro MD) Sick sinus syndrome (Chronic) Presence of cardiac pacemaker (Chronic) h/o back surgery (Chronic) history excision neuroendocrine tumor (Chronic) Neuroendocrine neoplasm of stomach (Chronic) History of anxiety disorder (Chronic) Benign essential hypertension (Chronic) Obesity (Chronic) Familial combined hyperlipidemia (Chronic) Tobacco dependence syndrome (Chronic) Chronic pain syndrome (Chronic) Chronic lower back pain (Chronic) Sinus pause (Chronic) Medical History: Medical History (Last Updated 07/21/18 @ 18:46 by Keith Ribeiro MD) h/o back surgery (Chronic) Neuroendocrine neoplasm of stomach (Chronic) D3A.8 History of anxiety disorder (Chronic) Z86.59 Benign essential hypertension (Chronic) I10 Obesity (Chronic) E66.9 Familial combined hyperlipidemia (Chronic) E78.4 Tobacco dependence syndrome (Chronic) F17.200 Chronic pain syndrome (Chronic) Chronic lower back pain (Chronic) M54.5, G89.29 Sinus pause (Chronic) I45.5 Allergies aspirin Adverse Reaction (Verified 03/18/18 13:35) Nausea/Vom/Diarrhea erythromycin base [Erythromycin Base] Adverse Reaction (Verified 03/18/18 13:35) Vomiting,diarrhea NSAIDS (Non-Steroidal Anti-Inflamma Adverse Reaction (Verified 03/18/18 13:35) Vomiting,diarrhea Home Medications: Ambulatory Orders Medication Instructions Recorded Duloxetine Hcl [Cymbalta] 120 mg PO DAILY 03/28/15 Levothyroxine [Synthroid] 25 mcg PO DAILY 03/28/15 Metoprolol Tartrate [Lopressor 25 mg PO BID 03/28/15 (beta aislinn)] Tolterodine Tartrate [Tolterodine 4 mg PO DAILY 04/18/16 Tartrate ER] Lorazepam [Ativan] 1 mg PO BID PRN 08/22/16 Ferrous Sulfate 325 mg PO BID 09/11/16 Zolpidem Tartrate [Ambien] 10 mg PO QHS PRN 09/11/16 Cholecalciferol (Vitamin D3) 50,000 unit PO TH 10/08/17 [Vitamin D3] pantoprazole 40 mg tablet,delayed 40 mg PO BID 12/27/17 release Ondansetron HCl [Zofran] 4 mg PO Q6H PRN PRN 01/02/18 Gabapentin [Neurontin] 300 mg PO TID 06/28/18 Lisinopril [Zestril] 20 mg PO DAILY #1 tablet 06/29/18 Surgical History: Surgical History (Last Updated 07/21/18 @ 18:46 by Keith Ribeiro MD) history excision neuroendocrine tumor (Chronic) S/P appendectomy Z90.49 Open S/P hysterectomy Z90.710 S/P laparoscopy Z98.890 x 12 for endometriosis S/P laparotomy Z98.890 x3 Via Pfannenstiel incision for endometriosis Surgical History: pacemaker implantation, - - elbow surgery, hysterectemy,appendectemy, sever lap surgeries on abd, removed masses in her neck CLINIC LEAD History: No pertinent CLINIC LEAD history Lives: Alone Smoking Status: Former smoker Alcohol: None Drugs: None - *Family History Maternal Family History: Family History (Last Reviewed 12/27/17 @ 10:29 by Evangelina Greene) Daughter Asthma Father Heart disease Hypertension CAD (coronary artery disease) History Items: No pertinent history Review of Systems Constitutional: Denies: Anorexia, Chills, Fever, Weakness Eyes: Denies: Blurred vision, Double vision, Drainage, Redness HEENT: Denies: Difficulty Hearing, Ear Pain, Eye Pain, Nasal Congestion, Sore Throat Cardiovascular: Reports: Chest Pain, Chest Tightness. Denies: Edema, Heaviness, Light Headedness, Palpitations, Paroxysmal Noc. Dyspnea, Syncope Respiratory: Reports: Shortness of Breath. Denies: Cough, Pleuritic Pain, Sputum production, Wheezing Gastrointestinal: Reports: Nausea. Denies: Abdominal Pain, Constipation, Diarrhea, Vomiting Genitourinary: Denies: Dysuria, Frequency, Hematuria Musculoskeletal: Denies: Arm Pain, Back Pain, Foot Pain Skin: Denies: Dryness, Rash Neurological: Denies: Balance problems, Double vision, Change in Speech, Slurred speech, Confusion, Headaches, Incoordination, Numbness Psychiatric: Reports: Anxiety. Denies: Depression VTE Information - Inpt Only VTE Present on Admission: No VTE Mechan Device Prophylaxis: None VTE Pharm Prophylaxis ordered?: No - Physical Exam General: Alert, Oriented x3, Cooperative, No apparent distress HEENT: Atraumatic, PERRLA, EOMI, Normocephalic Oral: Moist Mucosa, No Gingival or Mucosal Lesions/ Ulcerations Neck: Supple, No JVD, Negative Carotid Bruits, Trachea Midline, Thyroid Normal Size and Texture Lungs: Clear to auscultation, Normal air movement, No rhonchi, No wheeze, No rales Cardiovascular: Regular rate, Regular Rhythm, Normal S1, Normal S2, PMI Normal Abdomen: Bowel Sounds Present, Soft, Non Tender, Non-Distended, No Hepato-splenomegaly Extremities: No clubbing, No cyanosis, No edema Skin: No rashes, No breakdown Lymphatic: No Cervical, Supraclavicular, or Inguinal Adenopathy Neurological: Cranial nerves II-XII grossly intact, Motor Exam 5/5 strength throughout Psych/Mental Status: Normal Affect, Appropriate, Alert and oriented to time, place, person, mood and affect Vital Signs Temp Pulse Resp BP Pulse Ox 98.5 F 66 18 119/70 95 07/21/18 16:16 07/21/18 17:35 07/21/18 17:35 07/21/18 17:35 07/21/18 16:44 Oxygen Delivery Method Room Air Weight: 184 lb 8.43 oz Body Mass Index (BMI) 33.7 Finger Stick Blood Glucose 92 Laboratory Tests Past 24 Hrs 07/21/18 07/21/18 16:20 16:20 WBC 12.5 H RBC 4.60 Hgb 14.5 Hct 42.2 MCV 91.7 MCH 31.5 MCHC 34.4 RDW 13.7 RDW Differential 45.2 H Plt Count 259 MPV 10.1 Immature Gran % (Auto) 0.300 Neut % (Auto) 61.5 Lymph % (Auto) 30.1 [place] % (Auto) 5.8 Eos % (Auto) 2.1 Baso % (Auto) 0.2 Absolute Neuts (auto) 7.7 Absolute Lymphs (auto) 3.75 Total Counted Not Reportable Sodium 142 Potassium 3.8 Chloride 112 H Carbon Dioxide 24.0 Anion Gap 6 BUN 18 Creatinine 1.27 H Estim Creat Clear Calc 40.98 Est GFR (MDRD) Af Amer 57 L Est GFR (MDRD) Non-Af 47 L BUN/Creatinine Ratio 14.2 Glucose 100 Calcium 9.3 Troponin I < 0.015 Clinical Impression(s) from Imaging Studies Chest X-Ray 07/21/18 16:57 IMPRESSION: Degenerative changes, as described above. No demonstrated acute cardiopulmonary process. Electronically Signed: Arthur Loza MD at 17:33 EDT , Service support , Assessment/Plan This is a 52 years old female patient presented to the emergency room because of chest pain and she is being admitted for evaluation. #1 chest pain: Risk factors are age, history of hypertension and hyperlipidemia as well as sick sinus syndrome status post pacemaker. Although her presentation is suspicious for drug-seeking behavior because patient complained of severe crushing pain but she was not tachycardic, was not hypertensive, no sweating. Her EKG revealed no acute ischemic changes. Troponin is negative. Chest x-ray showed no acute findings. She had stress echocardiogram on January, that revealed ejection fraction of 60%, peak stress ejection fraction 70% and there was no wall motion abnormalities, there was no comment if there is or there is no stress induced ischemia by echocardiographic or EKG criteria. Plan: Admit to PCU for observation, cardiac monitoring, cycle cardiac enzymes, repeat EKG tomorrow morning, nuclear stress test tomorrow morning if cardiac enzymes are negative, nitroglycerin PRN for pain, IV fluids, IV antiemetics, plan to avoid IV narcotics, repeat CBC and BMP tomorrow morning. #2 mild dehydration: Creatinine is 1.27, it was 0.92 a month ago. Plan for IV fluids, input output chart, repeat BMP tomorrow morning. #3 history of sick sinus syndrome: Status post pacemaker. EKG looks stable, sinus rhythm, no acute ischemic changes or cardiac arrhythmias. #3 hypertension: Blood pressure stable, continue home medications when home medication list updated, will do orthostatic vitals. #4 hyperlipidemia: Continue statins. #5 anxiety: Continue Ativan as needed. #6 chronic pain syndrome: Continue Neurontin, Cymbalta, no narcotics in the hospital please. #7 DVT prophylaxis: Low risk patient, no prophylaxis indicated. This note was generated with [employer] software. It may contain incorrect words, spelling, and punctuation that were not noted in checking the note before signing. Code Visit OBSV E&M: 76668 Initial observation care L3
--- NOTE | 2018-07-21 18:50 | HP.PCM_ITS ---
Problem List (1) Sick sinus syndrome Status: Chronic (2) Presence of cardiac pacemaker Status: Chronic (3) History of anxiety disorder Status: Chronic (4) Benign essential hypertension Status: Chronic (5) Familial combined hyperlipidemia Status: Chronic (6) Tobacco dependence syndrome Status: Chronic History of Present Illness Date of Admission: 07/21/18 Chief Complaint: Chest pain. The patient is a 52 year old F with past medical history as mentioned above presented to the emergency room because of chest pain. 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 Her symptoms started 2 days ago with central chest pain, retrosternal, sharp shooting pain, sometimes goes to the left side, radiates to the left shoulder, associated with mild shortness of breath and nausea and without aggravating or relieving factors. When I saw the patient, patient mentioned that her pain is probably 8 or 9 in severity although she was not tachycardic, was not dyspneic and tachypneic. In the emergency department, her vital signs were stable. Her routine blood work was remarkable for mild leukocytosis, creatinine of 1.27, otherwise normal. EKG revealed normal sinus rhythm, normal [place] interval, normal QRS, normal QTC, no acute ischemic changes. Chest x-ray showed no acute findings. Troponin is negative. She is being admitted for chest pain for evaluation. Past Medical History Past Medical History (Chronic Problems): Chronic Problems (Last Updated 07/21/18 @ 18:46 by Keith Ribeiro MD) Sick sinus syndrome (Chronic) Presence of cardiac pacemaker (Chronic) h/o back surgery (Chronic) history excision neuroendocrine tumor (Chronic) Neuroendocrine neoplasm of stomach (Chronic) History of anxiety disorder (Chronic) Benign essential hypertension (Chronic) Obesity (Chronic) Familial combined hyperlipidemia (Chronic) Tobacco dependence syndrome (Chronic) Chronic pain syndrome (Chronic) Chronic lower back pain (Chronic) Sinus pause (Chronic) Medical History: Medical History (Last Updated 07/21/18 @ 18:46 by Keith Ribeiro MD) h/o back surgery (Chronic) Neuroendocrine neoplasm of stomach (Chronic) D3A.8 History of anxiety disorder (Chronic) Z86.59 Benign essential hypertension (Chronic) I10 Obesity (Chronic) E66.9 Familial combined hyperlipidemia (Chronic) E78.4 Tobacco dependence syndrome (Chronic) F17.200 Chronic pain syndrome (Chronic) Chronic lower back pain (Chronic) M54.5, G89.29 Sinus pause (Chronic) I45.5 Allergies aspirin Adverse Reaction (Verified 03/18/18 13:35) Nausea/Vom/Diarrhea erythromycin base [Erythromycin Base] Adverse Reaction (Verified 03/18/18 13:35) Vomiting,diarrhea NSAIDS (Non-Steroidal Anti-Inflamma Adverse Reaction (Verified 03/18/18 13:35) Vomiting,diarrhea Home Medications: Ambulatory Orders Medication Instructions Recorded Duloxetine Hcl [Cymbalta] 120 mg PO DAILY 03/28/15 Levothyroxine [Synthroid] 25 mcg PO DAILY 03/28/15 Metoprolol Tartrate [Lopressor 25 mg PO BID 03/28/15 (beta aislinn)] Tolterodine Tartrate [Tolterodine 4 mg PO DAILY 04/18/16 Tartrate ER] Lorazepam [Ativan] 1 mg PO BID PRN 08/22/16 Ferrous Sulfate 325 mg PO BID 09/11/16 Zolpidem Tartrate [Ambien] 10 mg PO QHS PRN 09/11/16 Cholecalciferol (Vitamin D3) 50,000 unit PO TH 10/08/17 [Vitamin D3] pantoprazole 40 mg tablet,delayed 40 mg PO BID 12/27/17 release Ondansetron HCl [Zofran] 4 mg PO Q6H PRN PRN 01/02/18 Gabapentin [Neurontin] 300 mg PO TID 06/28/18 Lisinopril [Zestril] 20 mg PO DAILY #1 tablet 06/29/18 Surgical History: Surgical History (Last Updated 07/21/18 @ 18:46 by Keith Ribeiro MD) history excision neuroendocrine tumor (Chronic) S/P appendectomy Z90.49 Open S/P hysterectomy Z90.710 S/P laparoscopy Z98.890 x 12 for endometriosis S/P laparotomy Z98.890 x3 Via Pfannenstiel incision for endometriosis Surgical History: pacemaker implantation, - - elbow surgery, hysterectemy,appendectemy, sever lap surgeries on abd, removed masses in her neck 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 Denies: Edema, Heaviness, Light Headedness, Palpitations, Paroxysmal Noc. Dyspnea, Syncope Respiratory: Reports: Shortness of Breath. Denies: Cough, Pleuritic Pain, Sputum production, Wheezing Gastrointestinal: Reports: Nausea. Denies: Abdominal Pain, Constipation, Diarrhea, Vomiting Genitourinary: Denies: Dysuria, Frequency, Hematuria Musculoskeletal: Denies: Arm Pain, Back Pain, Foot Pain Skin: Denies: Dryness, Rash Neurological: Denies: Balance problems, Double vision, Change in Speech, Slurred speech, Confusion, Headaches, Incoordination, Numbness Psychiatric: Reports: Anxiety. Denies: Depression VTE Information - Inpt Only VTE Present on Admission: No VTE Mechan Device Prophylaxis: None VTE Pharm Prophylaxis ordered?: No - Physical Exam General: Alert, Oriented x3, Cooperative, No apparent distress HEENT: Atraumatic, PERRLA, EOMI, Normocephalic Oral: Moist Mucosa, No Gingival or Mucosal Lesions/ Ulcerations Neck: Supple, No JVD, Negative Carotid Bruits, Trachea Midline, Thyroid Normal Size and Texture Lungs: Clear to auscultation, Normal air movement, No rhonchi, No wheeze, No rales Cardiovascular: Regular rate, Regular Rhythm, Normal S1, Normal S2, PMI Normal Abdomen: Bowel Sounds Present, Soft, Non Tender, Non-Distended, No Hepato- splenomegaly Extremities: No clubbing, No cyanosis, No edema Skin: No rashes, No breakdown Lymphatic: No Cervical, Supraclavicular, or Inguinal Adenopathy Neurological: Cranial nerves II-XII grossly intact, Motor Exam 5/5 strength throughout Psych/Mental Status: Normal Affect, Appropriate, Alert and oriented to time, place, person, mood and affect Vital Signs Temp Pulse Resp BP Pulse Ox 98.5 F 66 18 119/70 95 07/21/18 16:16 07/21/18 17:35 07/21/18 17:35 07/21/18 17:35 07/21/18 16:44 Oxygen Delivery Method Room Air Weight: 184 lb 8.43 oz Body Mass Index (BMI) 33.7 Finger Stick Blood Glucose 92 Laboratory Tests Past 24 Hrs 07/21/18 07/21/18 16:20 16:20 WBC 12.5 H RBC 4.60 Hgb 14.5 Hct 42.2 MCV 91.7 MCH 31.5 MCHC 34.4 RDW 13.7 RDW Differential 45.2 H Plt Count 259 MPV 10.1 Immature Gran % (Auto) 0.300 Neut % (Auto) 61.5 Lymph % (Auto) 30.1 [place] % (Auto) 5.8 Eos % (Auto) 2.1 Baso % (Auto) 0.2 Absolute Neuts (auto) 7.7 Absolute Lymphs (auto) 3.75 Total Counted Not Reportable Sodium 142 Potassium 3.8 Chloride 112 H Carbon Dioxide 24.0 Anion Gap 6 BUN 18 Creatinine 1.27 H Estim Creat Clear Calc 40.98 Est GFR (MDRD) Af Amer 57 L Est GFR (MDRD) Non-Af 47 L BUN/Creatinine Ratio 14.2 Glucose 100 Calcium 9.3 Troponin I < 0.015 Clinical Impression(s) from Imaging Studies Chest X-Ray 07/21/18 16:57 IMPRESSION: Degenerative changes, as described above. No demonstrated acute cardiopulmonary process. Electronically Signed: Arthur Loza MD at 17:33 EDT , Service support , Assessment/Plan This is a 52 years old female patient presented to the emergency room because of chest pain and she is being admitted for evaluation. #1 chest pain: Risk factors are age, history of hypertension and hyperlipidemia as well as sick sinus syndrome status post pacemaker. Although her presentation is suspicious for drug-seeking behavior because patient complained of severe crushing pain but she was not tachycardic, was not hypertensive, no sweating. Her EKG revealed no acute ischemic changes. Troponin is negative. Chest x-ray showed no acute findings. She had stress echocardiogram on January, that revealed ejection fraction of 60%, peak stress ejection fraction 70% and there was no wall motion abnormalities, there was no comment if there is or there is no stress induced ischemia by echocardiographic or EKG criteria. Plan: Admit to PCU for observation, cardiac monitoring, cycle cardiac enzymes, repeat EKG tomorrow morning, nuclear stress test tomorrow morning if cardiac enzymes are negative, nitroglycerin PRN for pain, IV fluids, IV antiemetics, plan to avoid IV narcotics, repeat CBC and BMP tomorrow morning. #2 mild dehydration: Creatinine is 1.27, it was 0.92 a month ago. Plan for IV fluids, input output chart, repeat BMP tomorrow morning. #3 history of sick sinus syndrome: Status post pacemaker. EKG looks stable, sinus rhythm, no acute ischemic changes or cardiac arrhythmias. #3 hypertension: Blood pressure stable, continue home medications when home medication list updated, will do orthostatic vitals. #4 hyperlipidemia: Continue statins. #5 anxiety: Continue Ativan as needed. #6 chronic pain syndrome: Continue Neurontin, Cymbalta, no narcotics in the h ospital please. #7 DVT prophylaxis: Low risk patient, no prophylaxis indicated. This note was generated with [employer] software. It may contain incorrect words, spelling, and punctuation that were not noted in checking the note before signing. Code Visit OBSV E&M: 62260 Initial observation care L3
[2018-07-21] MEDS: Acetaminophen 325 MG Tablet 650 MG PO (18:52)
[2018-07-21 18:53] VITALS: BP 134/78; PULSE 67; RESP 18; O2SAT 97
[2018-07-21] MEDS: Ondansetron 4 MG/2 ML Vial IV (19:17)
[2018-07-21 19:45] VITALS: BP 131/83; PULSE 61; RESP 18; TEMP 37.1; O2SAT 97
--- NOTE | 2018-07-21 20:00 | NURSING ---
Notified MD Abrams (see md notification note), pt leaving ama, refusing to sign ama paperwork. This RN notified scalehouse attendant Janessa that pt was already at elevator and refusing paperwork. Janessa attempted to intervene patient leaving but was unable to do so. Confirmed with AKIKO Means that pt had IV out prior to departure. Cary Means and this RN witness to pt ama information refusal and refusal to stay per her verbalizing that if she can't have iv narcotics then she can treat her pain better at home.
--- NOTE | 2018-07-21 20:01 | NURSING ---
Pt is upset, stating the Dr will not give her any meds that will help with her Chest pain besides Tylenol which doesnt help.She is refusing Nitro d/t it causing her to have a headache. Pt is stating she will not stay any longer because she can help herself better at home. This RN took IV out as the pt threatened to rip it out herself. AKIKO Don printed AMA papers and Pt refused to sign or take a copy of them home with her. Pt refuses to have this RN call for a ride, and states she will walk to [place].
--- NOTE | 2018-07-24 14:40 | PCM.DC.SUM ---
Discharge Date and Diagnosis Date of Admission: 07/21/18 Date of Discharge: 07/21/18 - Primary Discharge Diagnosis Chest pain, patient left the hospital AGAINST MEDICAL ADVICE. - Secondary Discharge Diagnosis Chronic Problems (Last Updated 07/21/18 @ 18:46 by Keith Ribeiro MD) Sick sinus syndrome (Chronic) Presence of cardiac pacemaker (Chronic) h/o back surgery (Chronic) history excision neuroendocrine tumor (Chronic) Neuroendocrine neoplasm of stomach (Chronic) History of anxiety disorder (Chronic) Benign essential hypertension (Chronic) Obesity (Chronic) Familial combined hyperlipidemia (Chronic) Tobacco dependence syndrome (Chronic) Chronic pain syndrome (Chronic) Chronic lower back pain (Chronic) Sinus pause (Chronic) Hospital Course and Treatment Imaging Results: Clinical Impression(s) from Imaging Studies Chest X-Ray 07/21/18 16:57 IMPRESSION: Degenerative changes, as described above. No demonstrated acute cardiopulmonary process. Electronically Signed: Arthur Loza MD at 17:33 EDT , Service support , Operations: None Procedures: EKG Summary of Care Provided: The patient is a 52 year old F admitted because of chest pain for evaluation. Initial EKG upon arrival to ER showed no acute ischemic changes. Troponin was negative. Patient complained of severe retrosternal chest pain. Chest x-ray showed no acute findings. While having the pain, patient was not tachycardic, was not hypertensive and there was a concern that she is having drug-seeking behavior. At the time of admission, patient was informed that she would be admitted under observation for cardiac monitoring, serial cardiac enzymes and plan to do nuclear stress test tomorrow morning if cardiac enzymes are negative. Patient requested more pain medications and she refused to take sublingual nitroglycerin. Patient requested IV narcotics. Patient refused to sign the AMA papers and she left the hospital AGAINST MEDICAL ADVICE. - Physical Exam Vital Signs Temp Pulse Resp BP Pulse Ox 98.7 F 61 18 131/83 H 97 07/21/18 19:45 07/21/18 19:45 07/21/18 19:45 07/21/18 19:45 07/21/18 19:45 Oxygen Delivery Method Room Air Weight: 184 lb 8.43 oz Body Mass Index (BMI) 33.7 Finger Stick Blood Glucose 92 Home Medications: Medications to take at Discharge Duloxetine Hcl [Cymbalta] 120 mg PO DAILY 03/28/15 Levothyroxine [Synthroid] 25 mcg PO DAILY 03/28/15 Metoprolol Tartrate [Lopressor (beta aislinn)] 25 mg PO BID 03/28/15 Tolterodine Tartrate [Tolterodine Tartrate ER] 4 mg PO DAILY 04/18/16 Lorazepam [Ativan] 1 mg PO TID 08/22/16 Ferrous Sulfate 325 mg PO BID 09/11/16 Zolpidem Tartrate [Ambien] 10 mg PO QHS PRN 09/11/16 Cholecalciferol (Vitamin D3) [Vitamin D3] 50,000 unit PO TH 10/08/17 pantoprazole 40 mg tablet,delayed release 40 mg PO BID 12/27/17 Ondansetron HCl [Zofran] 4 mg PO Q6H PRN PRN 01/02/18 Gabapentin [Neurontin] 300 mg PO TID 06/28/18 Lisinopril [Zestril] 20 mg PO QHS 07/21/18 Methocarbamol 750 mg PO TID 07/21/18 Primary Care Physician: Michael Leon MD [Primary Care Provider] - Disposition: Against Medical Advice Minutes spent on discharge:: 20 Patient Condition:: Stable Medical Necessity - Tobacco Use Smoking Status: Former smoker Meaningful Use Info Meaningful Use Diagnoses (Choose all that apply): None applicable Code Visit OBSV E&M: 19391 Observation care discharge
--- NOTE | 2018-07-24 14:44 | DS.PCM_ITS ---
Discharge Date and Diagnosis Date of Admission: 07/21/18 Date of Discharge: 07/21/18 - Primary Discharge Diagnosis Chest pain, patient left the hospital AGAINST MEDICAL ADVICE. - Secondary Discharge Diagnosis Chronic Problems (Last Updated 07/21/18 @ 18:46 by Kieth Ribeiro MD) Sick sinus syndrome (Chronic) Presence of cardiac pacemaker (Chronic) h/o back surgery (Chronic) history excision neuroendocrine tumor (Chronic) Neuroendocrine neoplasm of stomach (Chronic) History of anxiety disorder (Chronic) Benign essential hypertension (Chronic) Obesity (Chronic) Familial combined hyperlipidemia (Chronic) Tobacco dependence syndrome (Chronic) Chronic pain syndrome (Chronic) Chronic lower back pain (Chronic) Sinus pause (Chronic) Hospital Course and Treatment Imaging Results: Clinical Impression(s) from Imaging Studies Chest X-Ray 07/21/18 16:57 IMPRESSION: Degenerative changes, as described above. No demonstrated acute cardiopulmonary process. Electronically Signed: Arthur Loza MD at 17:33 EDT , Service support , Operations: None Procedures: EKG Summary of Care Provided: The patient is a 52 year old F admitted because of chest pain for evaluation. Initial EKG upon arrival to ER showed no acute ischemic changes. Troponin was negative. Patient complained of severe retrosternal chest pain. Chest x-ray showed no acute findings. While having the pain, patient was not tachycardic, was not hypertensive and there was a concern that she is having drug-seeking behavior. At the time of admission, patient was informed that she would be admitted under observation for cardiac monitoring, serial cardiac enzymes and plan to do nuclear stress test tomorrow morning if cardiac enzymes are negative. Patient requested more pain medications and she refused to take sublingual nitroglycerin. Patient requested IV narcotics. Patient refused to sign the AMA papers and she left the hospital AGAINST MEDICAL ADVICE. - Physical Exam Vital Signs Temp Pulse Resp BP Pulse Ox 98.7 F 61 18 131/83 H 97 07/21/18 19:45 07/21/18 19:45 07/21/18 19:45 07/21/18 19:45 07/21/18 19:45 Oxygen Delivery Method Room Air Weight: 184 lb 8.43 oz Body Mass Index (BMI) 33.7 Finger Stick Blood Glucose 92 Home Medications: Medications to take at Discharge Duloxetine Hcl [Cymbalta] 120 mg PO DAILY 03/28/15 Levothyroxine [Synthroid] 25 mcg PO DAILY 03/28/15 Metoprolol Tartrate [Lopressor (beta iaslinn)] 25 mg PO BID 03/28/15 Tolterodine Tartrate [Tolterodine Tartrate ER] 4 mg PO DAILY 04/18/16 Lorazepam [Ativan] 1 mg PO TID 08/22/16 Ferrous Sulfate 325 mg PO BID 09/11/16 Zolpidem Tartrate [Ambien] 10 mg PO QHS PRN 09/11/16 Cholecalciferol (Vitamin D3) [Vitamin D3] 50,000 unit PO TH 10/08/17 pantoprazole 40 mg tablet,delayed release 40 mg PO BID 12/27/17 Ondansetron HCl [Zofran] 4 mg PO Q6H PRN PRN 01/02/18 Gabapentin [Neurontin] 300 mg PO TID 06/28/18 Lisinopril [Zestril] 20 mg PO QHS 07/21/18 Methocarbamol 750 mg PO TID 07/21/18 Primary Care Physician: Michael Leon MD [Primary Care Provider] - Disposition: Against Medical Advice Minutes spent on discharge:: 20 Patient Condition:: Stable Medical Necessity - Tobacco Use Smoking Status: Former smoker Meaningful Use Info Meaningful Use Diagnoses (Choose all that apply): None applicable Code Visit OBSV E&M: 56023 Observation care discharge
== END 2018-07-21 20:00 | disposition left against medical advice (07) ==
LOC: ED 16:46 → PCU 18:49
PROVIDERS: Admitting Provider Hospitalist; Emergency Provider Emergency Medicine; Family Provider Family Medicine; PCP Family Medicine; Referring Provider Hospitalist; Visit Provider Hospitalist
DX: R07.89 Other chest pain (principal); R06.02 Shortness of breath; R11.0 Nausea; I10 Essential (primary) hypertension; Z79.899 Other long term (current) drug therapy; Z95.0 Presence of cardiac pacemaker; F41.9 Anxiety disorder, unspecified; E78.49 Other hyperlipidemia; E66.9 Obesity, unspecified; Z68.33 Body mass index [BMI] 33.0-33.9, adult; Z71.3 Dietary counseling and surveillance; G89.4 Chronic pain syndrome; Z87.891 Personal history of nicotine dependence; E86.0 Dehydration
CPT/HCPCS: 71046; 80048; 84484; 85025; 93005; 96361; 96374; 99285; J7030; A4216; J2405

== ENCOUNTER 2018-09-08 16:46 | Observation (INO) | payer MEDICARE, MEDICAID, SELFPAY ==
[2018-09-08] VITALS (7 sets, daily range): BP systolic 140–185; BP diastolic 89–117; PULSE 74–91; RESP 12–20; TEMP 37.3–37.6; O2SAT 91–97; BMI 30.2; BMI 31.1
--- NOTE | 2018-09-08 16:58 | EKG12_ITS ---
Test Reason : OVERDOSE Blood Pressure : / mmHG Vent. Rate : 080 BPM Atrial Rate : 080 BPM P-R Int : 164 ms QRS Dur : 086 ms QT Int : 366 ms P-R-T Axes : 050 027 037 degrees QTc Int : 422 ms Normal sinus rhythm Low Voltage QRS (Limb Leads) Confirmed by AIDEN GAUTAM, LEELEE ([id number]), news editor [employer] ([id number]) on 09/10/2018 12:22:28 PM Referred By: FLAQUITO Confirmed By:LEELEE WOLFE MD
--- NOTE | 2018-09-08 17:09 | ED.RN ---
PT REQUESTED NO INFORMATION BE GIVEN TO CALLERS OR VISITOR'S, BUT PERSON IN ROOM AT CURRENT TIME. VISITOR RESTRICTION PLACED. Willis CHRISTENSEN RN [id number]
--- NOTE | 2018-09-08 17:35 | CM.ED ---
Social Work Assessment Referral Date: 09/08/18 Informant: NURSE Reason for Consult: OVERDOSE Information obtained from: PATIENT AND PATIENT'S FRIEND Living Arrangements: PATIENT LIVES HOME ALONE IN AN APARTMENT. 1 STORY, 0 STEPS TO ENTER. Education: Employment/Financial: Supports: Social/Family Stressors: Mental Health History: Diagnoses: Medications: Physicians/Practitioners: Last Appointment (if applicable): Substance Abuse History: Substance(s) of choice: Last use: Hx of treatment: Where? When? Interventions: Assessment: PLAN:
--- NOTE | 2018-09-08 17:35 | CM.ED ---
Social Work Assessment Referral Date: 09/08/18 Informant: NURSING AND DR. HUDDLESTON Reason for Consult: OVERDOSE Information obtained from: PATENT AND PATIENT'S FRIEND Living Arrangements: PATIENT LIVES HOME ALONE IN A 1 STORY APARTMENT WITH 0 STEPS TO ENTER. Employment/Financial: DISABLED/LIMITED INCOME Supports: PATIENT HAS GOOD SUPPORT FROM FRIEND Social/Family Stressors: PATIENT STATES HAD BACK INJECTION 2 WEEKS AGO AND HAS BEEN IN PAIN EVER SINCE. Mental Health History: PATIENT REPORTS HX OF ANXIETY, PTSD- SEXUAL TRAUMA AT AGE 6. PATIENT REPORTS HX OF OVERDOSES WITH THE INTENT TO HARM SELF. PATIENT ADAMANTLY DENIES SUICIDAL IDEATION. PATIENT STATES CALLED DOCTOR TO INFORM HOW MUCH MEDICATION WAS TAKEN, HANDFULS PER PATIENT. PATIENT VERY TEARFUL THROUGHOUT ASSESSMENT. Substance Abuse History: PATIENT ADMITS TO HX OF ABUSING PERCOCET BEFORE BACK SURGERY. PATIENT REPORTS NO CURRENT USE. Interventions: SOCIAL SERVICE ASSESSMENT [place] SUICIDE RISK ASSESSMENT CASE DISCUSSED WITH DR. HUDDLESTON. Assessment: REFERRED BY NURSING AND DR. HUDDLESTON. PATIENT PRESENTS WITH OVERDOSE. REPORTED PATIENT TOOK 30 GABAPENTIN, 12 TABS TYLENOL, AND 2 ATIVAN BECAUSE OF PAIN. PATIENT WITH HX OF MENTAL HEALTH AND INTENTIONAL OVERDOSES. PATIENT STATES HAS BEEN HOSPITALIZED IN PSYCH UNIT BEFORE D/T OVERDOSE AND REFUSES TO GO BACK. PATIENT DENIES SUICIDAL IDEATION AND STATES, I JUST COULDN'T TAKE THE PAIN. DISCUSSED AMOUNT OF MEDICATION TAKEN AND CONCERNS. ATTEMPTED TO EDUCATE PATIENT ON PLAN OF CARE. PATIENT AGITATED. FRIEND IN ROOM ASSISTING WITH DE-ESCALATION. DISCUSSED WITH DR. HUDDLESTON. SITTER PROTOCOL IN PLACE. PLAN TO ADMIT. PLAN: ADMIT
[2018-09-08 17:47] LABS: Absolute Lymphocyte Count 3.91 X10^3/ul (0.83-4.51); Absolute Neutrophil Count 11.6 X10^3/uL (2.0-7.7); Basophil# 0.04 X10^3/uL; Basophil% 0.2 % (0-1); Eosinophil# 0.22 X10^3/uL; Eosinophils% 1.3 % (0-5); Hematocrit 45.4 % (37-47); Hemoglobin 15.1 g/dl (12.0-15.0); Lymphocyte # 3.91 X10^3/ul (4.0); Mean Corp Hgb Conc 33.3 g/gl (32-36); Mean Corpuscular Hgb 30.7 pg (27.0-32.0); Mean Corpuscular Volume 92.3 fL (81-99); Mean Platelet Vol. 9.7 fl (6.2-12.0); Monocyte# 1.06 X10^3/uL; Monocyte% 6.2 % (0-10); Neutrophil # 11.64 X10^3/uL (2.7-7.7); Neutrophil % 68.4 % (47-70); Platelet Count 238 K/mm3 (150-450); RBC Distribution Width CV 13.5 % (11.6-14.6); RBC Distribution Width SD 44.6 fl (35.1-43.9); Red Blood Count 4.92 M/mm3 (4.2-5.4)
[2018-09-08 17:48] LABS: POSITIVE COUNT NO; POSITIVE DIFFERENTIAL NO; POSITIVE MORPHOLOGY NO
[2018-09-08 18:01] LABS: Internal QC Validated? YES +Cl - CLEAR BKGD; Pregnancy, Serum, hCG Quali. NEGATIVE Negative
[2018-09-08 18:05] LABS: Anion Gap 7 (5-15); BUN 15 mg/dL (7-18); BUN/Creat Ratio 15.7 RATIO (10-20); Calcium,Total 9.1 mg/dL (8.5-10.1); Chloride 110 mmol/L (98-107); Creatinine, Serum 0.96 mg/dL (0.55-1.02); EST Glomerular Filtration Rate 65 mL/min (>60); Est Glom Filt Rate - Afr Amer 78 mL/min (>60); Glucose 103 mg/dL (74-106); Potassium 4.1 mmol/L (3.5-5.1); Sodium Level 142 mmol/L (136-145)
[2018-09-08 18:21] LABS: Acetaminophen (Tylenol) Level 11.5 ug/mL (10.0-30.0); Salicylate 5.7 mg/dL (2.8-20.0)
--- NOTE | 2018-09-08 18:30 | ED.RN ---
PT WAS BECOMING ANGRY BECAUSE SHE HAD NO RECEIVED ANY PAIN MEDICATIONS. PT WAS REMINDED THAT SHE HAD TAKEN TO MANY MEDS ALREADY AND WE COULD NOT GIVE HER ANY OTHER MEDS DUE TO HER OVERDOSE. SHE WAS REMINDED THAT SHE WAS HERE FOR A OVERDOSE NOT DUE TO HER PAIN. PT AT THAT TIME ASKED ME TO LEAVE THE ROOM AND NOT COME BACK. 1:1 SITTER AT BEDSIDE. FAMILY AT BEDSIDE. BOTH PRESENT AT TIME OF CONVERSATION. PT IS PINK SLIPPED BY ED DR. Willis CHRISTENSEN, RN [id number]
[2018-09-08 18:39] LABS: Amphetamine Urine VISTA NEGATIVE (<1000 ng/mL); Barbiturate Urine VISTA NEGATIVE (< 200 ng/mL); Benzodiazepine Urine VISTA NEGATIVE (< 200 ng/mL); Cocaine Urine VISTA NEGATIVE (< 300 ng/mL); Ecstacy Urine VISTA NEGATIVE (< 500 ng/mL); Methadone Urine VISTA NEGATIVE (< 300 ng/mL); PCP Urine VISTA NEGATIVE (< 25 ng/mL); THC Urine VISTA NEGATIVE (< 50 ng/mL); Vista UDS pH Range 6
--- NOTE | 2018-09-08 18:46 | ED.DCSUM_ITS ---
- ER Visit Summary Date of Service: 09/08/18 Chief Complaint: [Drug overdose] History of Present Illness: The patient is a 53 F [presents to the emergency department with a drug overdose that occurred today. Patient's been taking medications to try to ease her pain since around 4 AM today. Patient started taking gabapentin and she thinks she may have taken over 30 of them 300 mg each. Patient also took about 12 Tylenol tablets and two 1 mg of Ativan tablets. Patient states that she is not suicidal and this was simply an attempt to ease her pain. She eventually called her primary care physician to see if there was any danger in taking 30 tablets of gabapentin and she was advised to come to the emergency department. Patient does have prior history of drug overdose. She does have a history of PTSD. Patient does have a history of hypertension and depression.] Physical Examination: [HEENT-PERRLA, EOMI. Cranial nerves II through XII grossly intact. TMs clear. Mucous membranes moist. No adenopathy. Cardiovascular-regular rate and rhythm without murmur or ectopy Lungs-clear to auscultation, chest wall stable without crepitus or subcu emphysema Abdomen-normoactive bowel sounds, soft, nontender, no rebound or rigidity, no peritoneal signs. Extremities-intact ?4, normal range of motion, normal pulses, atraumatic] Test Results: [CBC with differential showed a white count 17,000, hemoglobin 15, hematocrit 45, platelets of 238. Chemistries unremarkable. hCG was negative. Salicylates were 5.7. Tylenol was 11.5. Alcohol was negative. [employer] screen pending.] Emergency Department Course and Treatment: [Patient had an IV line established and she was placed on a business services coordinator. Patient was given normal saline.] Treatment Plan: [Patient was pink slipped as I have concern regarding her impulsivity and concern the patient may have been attempting to harm her self. Patient will be admitted for observation overnight and evaluation by crisis.] I feel patient likely did know that it would be harmful to take 30 tablets of the medication that she was given and prescribed in a completely different way. Disposition: [Admit] Impression: [Internal drug overdose] This note was generated with [employer] dictation software. It may contain incorrect words, spelling, and punctuation that were not noted in review of the chart prior to signing ED Disposition - Plan for ED Patient: Referrals: Care Physician,No Primary [Primary Care Provider] -
--- NOTE | 2018-09-08 19:02 | HP.PCM_ITS ---
Problem List (1) Gabapentin overdose Status: Acute Qualifiers: Encounter type: initial encounter Injury intent: accidental or unintentional Qualified Code(s): T42.6X1A - Poisoning by other antiepileptic and sedative-hypnotic drugs, accidental (unintentional), initial encounter History of Present Illness Date of Admission: 09/08/18 Chief Complaint: ingested 30 300mg gabapentin. The patient is a 53 year old F who had an injection in her back recently and stated that it caused her worsening pain. Around 4 AM today, patient stated that she was taking gabapentin to help alleviate her pain. Patient estimates that she may have taken 30. Additionally, she is ingested 12 acetaminophen tablets and two 1 mg tablets of lorazepam. She contacted her primary care physician whose office advised her to come to the emergency room. In the emergency room, patient was yelling at staff. Patient denied any suicide attempt stating that she want her pain alleviated. The hospital service was contacted to bring the patient and to observe make sure she does not have any sequelae for her over ingestion of gabapentin and then look to having a psychiatric evaluation with crisis on the second. [] Past Medical History Past Medical History (Chronic Problems): Chronic Problems (Last Updated 07/21/18 @ 18:46 by Keith Ribeiro MD) Sick sinus syndrome (Chronic) Presence of cardiac pacemaker (Chronic) h/o back surgery (Chronic) history excision neuroendocrine tumor (Chronic) Neuroendocrine neoplasm of stomach (Chronic) History of anxiety disorder (Chronic) Benign essential hypertension (Chronic) Obesity (Chronic) Familial combined hyperlipidemia (Chronic) Tobacco dependence syndrome (Chronic) Chronic pain syndrome (Chronic) Chronic lower back pain (Chronic) Sinus pause (Chronic) Medical History: Medical History (Last Reviewed 09/08/18 @ 19:05 by Keon Colon DO) h/o back surgery (Chronic) Neuroendocrine neoplasm of stomach (Chronic) D3A.8 History of anxiety disorder (Chronic) Z86.59 Benign essential hypertension (Chronic) I10 Obesity (Chronic) E66.9 Familial combined hyperlipidemia (Chronic) E78.4 Tobacco dependence syndrome (Chronic) F17.200 Chronic pain syndrome (Chronic) Chronic lower back pain (Chronic) M54.5, G89.29 Sinus pause (Chronic) I45.5 Allergies aspirin Adverse Reaction (Verified 09/08/18 16:53) Nausea/Vom/Diarrhea erythromycin base [Erythromycin Base] Adverse Reaction (Verified 09/08/18 16:53) Vomiting,diarrhea NSAIDS (Non-Steroidal Anti-Inflamma Adverse Reaction (Verified 09/08/18 16:53) Vomiting,diarrhea Home Medications: Ambulatory Orders Medication Instructions Recorded Duloxetine Hcl [Cymbalta] 120 mg PO DAILY 03/28/15 Levothyroxine [Synthroid] 25 mcg PO DAILY 03/28/15 Metoprolol Tartrate [Lopressor 25 mg PO BID 03/28/15 (beta aislinn)] Tolterodine Tartrate [Tolterodine 4 mg PO DAILY 04/18/16 Tartrate ER] Lorazepam [Ativan] 1 mg PO TID 08/22/16 Ferrous Sulfate 325 mg PO BID 09/11/16 Zolpidem Tartrate [Ambien] 10 mg PO QHS PRN 09/11/16 Cholecalciferol (Vitamin D3) 50,000 unit PO TH 10/08/17 [Vitamin D3] pantoprazole 40 mg tablet,delayed 40 mg PO BID 12/27/17 release Ondansetron HCl [Zofran] 4 mg PO Q6H PRN PRN 01/02/18 Gabapentin [Neurontin] 300 mg PO TID 06/28/18 Lisinopril [Zestril] 20 mg PO QHS 07/21/18 Methocarbamol 750 mg PO TID 07/21/18 Surgical History: Surgical History (Last Reviewed 09/08/18 @ 19:05 by Keon Colon DO) history excision neuroendocrine tumor (Chronic) S/P appendectomy Z90.49 Open S/P hysterectomy Z90.710 S/P laparoscopy Z98.890 x 12 for endometriosis S/P laparotomy Z98.890 x3 [address] Pfannenstiel incision for endometriosis Surgical History: pacemaker implantation, - - elbow surgery, hysterectemy,a ppendectemy, sever lap surgeries on abd, removed masses in her neck PARAPROFESSIONAL AIDE History: No pertinent PARAPROFESSIONAL AIDE history Smoking Status: Current every day smoker - *Family History Maternal Family History: Family History (Last Reviewed 09/08/18 @ 19:05 by Keon Colon DO) Daughter Asthma Father Heart disease Hypertension CAD (coronary artery disease) History Items: No pertinent history Review of Systems Comment: Unable to obtain adequate review of systems as the patient is a very comfortable additional and yelling. Patient is not interested in having any kind of two-way dialogue with me. VTE Information - Inpt Only VTE Present on Admission: No VTE Mechan Device Prophylaxis: None VTE Pharm Prophylaxis ordered?: No Reason prophylaxis not ordered:: Procedure Not Indicated Patient Problems: Active and Suspected Problems (Last Updated 07/21/18 @ 18:46 by Keith Ribeiro MD) Gabapentin overdose (Acute) Objective: Patient very confrontational and yelling during encounter. I did not perform a physical exam due to the patient's conversational behavior and also patient had to be restrained though it seemed to have exacerbated her anxiety. - Physical Exam General: Alert, - - Yelling. Afebrile. HEENT: Atraumatic, Normocephalic Skin: No rashes, No breakdown Psych/Mental Status: Agitated, Anxious Vital Signs Temp Pulse Resp BP Pulse Ox 37.6 C H 91 12 162/117 H 96 09/08/18 16:47 09/08/18 18:29 09/08/18 18:29 09/08/18 18:29 09/08/18 18:29 Oxygen Delivery Method Room Air Weight: 74.843 kg Body Mass Index (BMI) 30.2 Finger Stick Blood Glucose 92 Laboratory Tests Past 24 Hrs 09/08/18 09/08/18 09/08/18 17:31 17:31 17:31 WBC 17.0 H RBC 4.92 Hgb 15.1 H Hct 45.4 MCV 92.3 MCH 30.7 MCHC 33.3 RDW 13.5 RDW Differential 44.6 H Plt Count 238 MPV 9.7 Immature Gran % (Auto) 0.900 Neut % (Auto) 68.4 Lymph % (Auto) 23.0 Ware % (Auto) 6.2 Eos % (Auto) 1.3 Baso % (Auto) 0.2 Absolute Neuts (auto) 11.6 H Absolute Lymphs (auto) 3.91 Total Counted Not Reportable Sodium 142 Potassium 4.1 Chloride 110 H Carbon Dioxide 25.0 Anion Gap 7 BUN 15 Creatinine 0.96 Estim Creat Clear Calc 53.60 Est GFR (MDRD) Af Amer 78 Est GFR (MDRD) Non-Af 65 BUN/Creatinine Ratio 15.7 Glucose 103 Calcium 9.1 Serum , Qual Salicylates Urine Opiates Screen Urine Methadone Screen Acetaminophen Ur Barbiturates Screen Ur Phencyclidine Scrn Ur Amphetamines Screen U Methamphetamin-MDMA U Benzodiazepines Scrn Urine Cocaine Screen U Cannabinoids Screen Ur Drug Screen Comment Ethyl Alcohol 10.0 09/08/18 09/08/18 09/08/18 17:31 17:31 18:00 WBC RBC Hgb Hct MCV MCH MCHC RDW RDW Differential Plt Count MPV Immature Gran % (Auto) Neut % (Auto) Lymph % (Auto) Ware % (Auto) Eos % (Auto) Baso % (Auto) Absolute Neuts (auto) Absolute Lymphs (auto) Total Counted Sodium Potassium Chloride Carbon Dioxide Anion Gap BUN Creatinine Estim Creat Clear Calc Est GFR (MDRD) Af Amer Est GFR (MDRD) Non-Af BUN/Creatinine Ratio Glucose Calcium Serum , Qual NEGATIVE Salicylates 5.7 Urine Opiates Screen NEGATIVE Urine Methadone Screen NEGATIVE Acetaminophen 11.5 Ur Barbiturates Screen NEGATIVE Ur Phencyclidine Scrn NEGATIVE Ur Amphetamines Screen NEGATIVE U Methamphetamin-MDMA NEGATIVE U Benzodiazepines Scrn NEGATIVE Urine Cocaine Screen NEGATIVE U Cannabinoids Screen NEGATIVE Ur Drug Screen Comment Ethyl Alcohol Assessment/Plan All Active Problems (Last Updated 07/21/18 @ 18:46 by Keith Ribeiro MD) Gabapentin overdose (Acute) 1. Gabapentin ingestion * No overt signs or symptoms of overdose at this time * However, the patient did ingest approximately 30 gabapentin tablets of 300 mg each over 12 to 14 hours. * Patient will be monitored on medical floor * But given the ingestion, even the patient refutes any suicide attempts, patient will need to have psychiatric clearance before she can be discharged. If patient has no sequelae overnight and is otherwise remaining stable, and crisis can evaluate her to see if she cannot be discharged home or go to inpatient psychiatric unit. * Patient will require sitter at bedside until cleared by psychiatry 2. Chronic pain * Reviewed [facility] and she has received 270 gabapentin on July 21, and has a 3- month supply from Dr. Bobby Leon * That will be stopped, gabapentin * Patient Tylenol level was normal upon here so I think is okay to resume Tylenol here. * Patient can follow-up pain management as outpatient patient demonstrating that she is a poor candidate for controlled substances and now gabapentin * Patient states that she cannot take NSAIDs due to her stomach. I presume is either due to gastritis or peptic ulcer disease 3. Anxiety/PTSD * Per the patient's [facility]AR[facility] report, she has received lorazepam through [facility] * I informed the patient that lorazepam is a poor choice for anxiety or PTSD * I told her that she needs to follow-up with her psychiatrist and to be started on a slow wean to off of this medication because of her demonstration of not taking medications appropriately and also the fact that benzodiazepines are poor long-term choice for these psychiatric issues. Patient again kept on yelling stating that this is what controls her symptoms. 4. VTE prophylaxis: Low risk as patient is observation status. No VTE prophylaxis indicated at this time 50 minutes of which greater than 50% of the time was discussing with the patient and her niece at bedside in regards to the course of action, reasons why medications will will not be given, medical clearance, psychiatric clearance and potential course of disposition. Code Visit OBSV E&M: 09461 Initial observation care L2
--- NOTE | 2018-09-08 19:25 | CM.ED ---
Social Work Assessment Referral Date: Date of Assessment: Informant: Reason for Consult: Information obtained from: Living Arrangements: DME: Education: Employment/Financial: Supports: Social/Family Stressors: Mental Health History: Diagnoses: Medications: Physicians/Practitioners: Last Appointment (if applicable): Substance Abuse History: Substance(s) of choice: Last use: Hx of treatment: Where? When? Interventions: Assessment: PLAN:
--- NOTE | 2018-09-08 19:47 | NURSING ---
Pt refuses to allow vitals signs to be taken. Pt removed IV.
[2018-09-08] MEDS: LORazepam 1 MG Tablet PO (20:10)
[2018-09-08 20:22] LABS: Bedside Glucose 105 mg/dL (70-110)
--- NOTE | 2018-09-08 20:56 | EKG12_ITS ---
Test Reason : CP Blood Pressure : / mmHG Vent. Rate : 080 BPM Atrial Rate : 080 BPM P-R Int : 154 ms QRS Dur : 084 ms QT Int : 378 ms P-R-T Axes : 053 038 036 degrees QTc Int : 435 ms Normal sinus rhythm Normal ECG Confirmed by AIDEN GAUTAM, LEELEE ([id number]), senior editor [employer] ([id number]) on 09/10/2018 12:34:06 PM Referred By: ASHLEY Confirmed By:LEELEE WOLFE MD
--- NOTE | 2018-09-08 21:10 | NURSING ---
2047 Rec'd call from [facility] that pt was complaining of chest pain. Entered pt's room. Pt was lying on side, rubbing chest, tears in eyes. Pt states that she is having chest pain, 12/18, states it feels 'pressure-like' Vitals and EKG completed. on phone, and updated by charge, AKIKO Cunningham. Pt states that she know's it's ''her nerves'' Pt's b/p elevated. Offered pt's b/p medications, advised her that they would help decrease her blood pressure, and in turn, her chest pain. Pt refused to take any medications, began to become even more agitated, and yell at this nurse. Pt states ''Why should I take any medications if you won't help me? This RN left room to chart. At 2109 pt's call light on, when this nurse entered room, pt states she has pain. ''chest pain, leg pain, back pain'' Discussed with pt that blood pressure medications, tylenol, or a heating pad could be given. Pt became even more agitated, and began yelling at this nurse. This nurse advised that she would like the DrSpike know that pt is still having pain. AKIKO Brandt
--- NOTE | 2018-09-08 22:38 | NURSING ---
Bernardo called nurse into room. Pt requesting to speak with the physician face to face. Pt states I am leaving, I don't need to be here, why should I stay if you aren't going to help me? Advised pt that would be paged to come speak with her. Pt continues to refuse all offered pain interventions and care. sheetmetal trades worker notified. Karly RN
[2018-09-08] MEDS: Metoprolol Tartrate 25 MG Tablet PO (23:21)
[2018-09-08] MEDS: Pantoprazole Sodium 40 MG Tablet PO (23:21)
[2018-09-08] MEDS: Lisinopril 20 MG Tablet PO (23:23)
--- NOTE | 2018-09-08 23:24 | NURSING ---
6631 This nurse heard yelling from pt's room. Entered pt's room to see what she needed. Pt states that she is in pain, and she has not gotten any of her medications, no protonix, no lopressor. Advised pt that these medications were offered to her, and she refused them, but can give them to her now if she would like. Pt took protonix, lopressor, and lisinopril. Pt wanting ambien, advised her that she can have melatonin to help with sleep. pt refused. AKIKO Brandt
--- NOTE | 2018-09-09 01:33 | NURSING ---
0040 Dr. Abrams in room to see pt. At this time, no medications prescribed, will continue to monitor, and use redirection and de-escalation techniques. Pt aware, cannot be released to leave until after crisis sees her and completed evaluation. Karly, RN
--- NOTE | 2018-09-09 02:24 | NURSING ---
pt refusing vitals and assessment at this time. Karly, RN
[2018-09-09 06:16] VITALS: BP 138/83; PULSE 74; RESP 16; TEMP 36.6; O2SAT 95
[2018-09-09] MEDS: Levothyroxine 25 MCG TABLET PO (06:19)
[2018-09-09 10:00] VITALS: BP 147/96; PULSE 64; RESP 16; TEMP 36.9
[2018-09-09] MEDS: Pantoprazole Sodium 40 MG Tablet PO (10:14)
[2018-09-09] MEDS: Tolterodine Tartrate 4 MG CAP.SA PO (10:14)
[2018-09-09] MEDS: Ferrous Sulfate 325 MG Tablet PO (10:15)
[2018-09-09 10:19] VITALS: BP 147/96; PULSE 68
[2018-09-09] MEDS: Metoprolol Tartrate 25 MG Tablet PO (10:19)
[2018-09-09] MEDS: LORazepam 1 MG Tablet PO ×3 (10:22→15:22)
--- NOTE | 2018-09-09 10:38 | CASEMGMT ---
RN CM Note: Noted in chart pt does not have PCP. Intro role of CM to patient in room. Pt states she does not have a PCP and It doesn't matter. RN CM attempted to explain benefits but pt does not wish to have PCP and declined any further information or list. Gamal WAGNERN RN ACM
--- NOTE | 2018-09-09 11:13 | NURSING ---
called to pt's room and pt asking for pain meds and when is going to be seen pt threatening to leave and swearing and yelling saying that if they dont come soon i'll...... when asked pt what was going to do pt stated, get the fuck out of here pt with raised voice and bringing up that noone ever came to check me out after i fell explained fall documentation and that channels were followed and that if had any new c/o would tell dr. pt unable to report where injury was that was concerned about was in fact. explained that until seen by crisis pt had a pink slip that if she tried to leave [facility] would be called and that could not leave. pt yelled, then im going to [facility] pt pulled blankets over head and refused to talk anymore with nurse. hemodialysis charge nurse sofía and geni texted .
--- NOTE | 2018-09-09 11:24 | NURSING ---
1110-pt updated that text sent out about pain and that crisis will be in at 1100 to evaluate.
--- NOTE | 2018-09-09 11:26 | NURSING ---
1115-geni down and in room to see pt. asking about fall and pt refusing any and all . xrays at this time. geni to write for lidoderm patch for pt.
--- NOTE | 2018-09-09 13:33 | NURSING ---
1200 PT SCREAMING OUT ASKING FOR MEDS NOW. EXPLAINED THAT PHARMACY HAS TO SEND D/T NOT CARRYING UP ON OUR STOCK. WHEN MEDS FINALLY TAKEN TO PT PT SCREAMING SAYING IM NOT PUTTING THAT FUCKING PATCH ON ME! MAYBE IF HE WOULD HAVE ASKED ME WHAT WORKS FOR MY PAIN AND WHAT DOESNT WORKS AND WHAT MARTIN ALREADY FUCKING TRIED! PT REFUSING CYMBALTA ALSO AT THIS TIME. CRISIS RUNNING BEHIND SO WILL BE HERE AT 1300.
--- NOTE | 2018-09-09 13:37 | NURSING ---
1230-PT SCREAMING AT SITTER NOW AND CALLED NURSE TO ROOM STATING, I DONT WANT HER FUCKING IN HERE! SHE TOLD ME SHE DOESNT KNOW ANYTHING PT TOLD THAT IS JUST SITTER FOR SAFTEY AND THAT NOT AWARE OF CIRCUMSTANCES THAT BROUGHT PT IN. PT TOLD NURSE TO GET OUT NOW AND PULLED COVERS OVER HEAD AGAIN.
--- NOTE | 2018-09-09 13:51 | PCM.PROGNOTE ---
<Armando Hudson - Last Filed: 09/09/18 14:33> Subjective: Pt very angry this AM. When initially asked about complaints, hx, and how I may help her today, she told me there is nothing I can do and she never wants to see a doctor again. She later asked to be seen as she felt nobody addressed her fall yesterday. She complained of falling to the left side and landing on her left hip and proximal leg. She denies striking her head. She states her left leg just gave out on her. No dizziness/LH. I planned to have an xray done of the affected area however she refused and felt that we were just trying to get money from her and she did not want to spend money on that. She did request something for the pain. She has no Dizzines/LH. No Headache. No double vision or blurry vision. No neck pain. No nausea/vomiting/diarrhea. No chest pain/SOB/palp. She says she doesnt know how much of laura or tylenol that she took. - Physical Exam General: Alert, Oriented x3, Cooperative HEENT: Atraumatic, PERRLA, EOMI, Normocephalic Neck: Supple, No JVD, Negative Carotid Bruits Lungs: Clear to auscultation, Normal air movement Cardiovascular: Regular rate, No murmurs Abdomen: Bowel Sounds Present, Soft, Non Tender Extremities: No edema, Capillary Refill Less than 3 Seconds Skin: No rashes, No breakdown Musculoskeletal: No Tenderness to Palpation of Joints or Extremities Neurological: Cranial nerves II-XII grossly intact Psych/Mental Status: Normal Affect, Appropriate Vital Signs Temp Pulse Resp BP Pulse Ox 98.5 F 68 16 147/96 H 95 09/09/18 10:09/09/18 10:09/09/18 10:00 09/09/18 10:09/09/18 06:16 Oxygen Delivery Method Room Air Weight: 172 lb 12.8 oz Body Mass Index (BMI) 31.1 Finger Stick Blood Glucose 92 Intake and Output for Last 24 Hours 09/07/18 09/08/18 09/09/18 23:59 23:59 23:59 Intake Total 480 / 480 100 / 100 Balance 480 / 480 100 / 100 Laboratory Tests Past 24 Hrs 07/01/19 07/01/19 07/01/19 17:31 17:31 17:31 WBC 17.0 H RBC 4.92 Hgb 15.1 H Hct 45.4 MCV 92.3 MCH 30.7 MCHC 33.3 RDW 13.5 RDW Differential 44.6 H Plt Count 238 MPV 9.7 Immature Gran % (Auto) 0.900 Neut % (Auto) 68.4 Lymph % (Auto) 23.0 Emmons % (Auto) 6.2 Eos % (Auto) 1.3 Baso % (Auto) 0.2 Absolute Neuts (auto) 11.6 H Absolute Lymphs (auto) 3.91 Total Counted Not Reportable Sodium 142 Potassium 4.1 Chloride 110 H Carbon Dioxide 25.0 Anion Gap 7 BUN 15 Creatinine 0.96 Estim Creat Clear Calc 53.60 Est GFR (MDRD) Af Amer 78 Est GFR (MDRD) Non-Af 65 BUN/Creatinine Ratio 15.7 Glucose 103 Calcium 9.1 Serum , Qual Salicylates Urine Opiates Screen Urine Methadone Screen Acetaminophen Ur Barbiturates Screen Ur Phencyclidine Scrn Ur Amphetamines Screen U Methamphetamin-MDMA U Benzodiazepines Scrn Urine Cocaine Screen U Cannabinoids Screen Ur Drug Screen Comment Ethyl Alcohol 10.0 09/08/18 09/08/18 09/08/18 17:31 17:31 18:00 WBC RBC Hgb Hct MCV MCH MCHC RDW RDW Differential Plt Count MPV Immature Gran % (Auto) Neut % (Auto) Lymph % (Auto) Emmons % (Auto) Eos % (Auto) Baso % (Auto) Absolute Neuts (auto) Absolute Lymphs (auto) Total Counted Sodium Potassium Chloride Carbon Dioxide Anion Gap BUN Creatinine Estim Creat Clear Calc Est GFR (MDRD) Af Amer Est GFR (MDRD) Non-Af BUN/Creatinine Ratio Glucose Calcium Serum , Qual NEGATIVE Salicylates 5.7 Urine Opiates Screen NEGATIVE Urine Methadone Screen NEGATIVE Acetaminophen 11.5 Ur Barbiturates Screen NEGATIVE Ur Phencyclidine Scrn NEGATIVE Ur Amphetamines Screen NEGATIVE U Methamphetamin-MDMA NEGATIVE U Benzodiazepines Scrn NEGATIVE Urine Cocaine Screen NEGATIVE U Cannabinoids Screen NEGATIVE Ur Drug Screen Comment Ethyl Alcohol POC Glucose 09/08/18 20:04 POC Glucose 105 Medical Necessity - Tobacco Use Smoking Status: Current every day smoker Tobacco Use: Vapor Assessment/Plan All Active Problems (Last Reviewed 09/08/18 @ 19:05 by Keon Colon DO) Gabapentin overdose (Acute) 1. Gabapentin overdose - initially reports of 30 x 300 mg tabs. Pt unsure of exact quantity. This is stopped. Tox screen negative. 2. Fall - contusion to left hip. Pt refuses imaging. Tylenol and lidocaine patch offered for pain. 3. Chronic pain - 2/2 L3/L4 Fusion 4. Hx SSS with pacemaker 5. Anx - ok to continue prn ativan. Duloxetine. 6. Hx HTN - stable 7. Tobacco abuse - patch if desired 8. Hypothyroidism - synthroid DVT ppx: early ambulation DC planning: crisis to evaluate. She is medically stable for discharge This patient was seen by Armando Hudson PA-C under the supervision of Dr. Augustin. <Josh Augustin - Last Filed: 09/09/18 16:48> - Physical Exam Vital Signs Temp Pulse Resp BP Pulse Ox 98.5 F 67 18 160/87 H 95 09/09/18 15:25 09/09/18 15:25 09/09/18 15:25 09/09/18 15:25 09/09/18 15:25 Oxygen Delivery Method Room Air Weight: 172 lb 12.8 oz Body Mass Index (BMI) 31.1 Finger Stick Blood Glucose 92 Intake and Output for Last 24 Hours 09/07/18 09/08/18 09/09/18 23:59 23:59 23:59 Intake Total 480 / 480 100 / 100 Balance 480 / 480 100 / 100 Laboratory Tests Past 24 Hrs 09/08/18 09/08/18 09/08/18 17:31 17:31 17:31 WBC 17.0 H RBC 4.92 Hgb 15.1 H Hct 45.4 MCV 92.3 MCH 30.7 MCHC 33.3 RDW 13.5 RDW Differential 44.6 H Plt Count 238 MPV 9.7 Immature Gran % (Auto) 0.900 Neut % (Auto) 68.4 Lymph % (Auto) 23.0 Emmons % (Auto) 6.2 Eos % (Auto) 1.3 Baso % (Auto) 0.2 Absolute Neuts (auto) 11.6 H Absolute Lymphs (auto) 3.91 Total Counted Not Reportable Sodium 142 Potassium 4.1 Chloride 110 H Carbon Dioxide 25.0 Anion Gap 7 BUN 15 Creatinine 0.96 Estim Creat Clear Calc 53.60 Est GFR (MDRD) Af Amer 78 Est GFR (MDRD) Non-Af 65 BUN/Creatinine Ratio 15.7 Glucose 103 Calcium 9.1 Serum , Qual Salicylates Urine Opiates Screen Urine Methadone Screen Acetaminophen Ur Barbiturates Screen Ur Phencyclidine Scrn Ur Amphetamines Screen U Methamphetamin-MDMA U Benzodiazepines Scrn Urine Cocaine Screen U Cannabinoids Screen Ur Drug Screen Comment Ethyl Alcohol 10.0 09/08/18 09/08/18 09/08/18 17:31 17:31 18:00 WBC RBC Hgb Hct MCV MCH MCHC RDW RDW Differential Plt Count MPV Immature Gran % (Auto) Neut % (Auto) Lymph % (Auto) Emmons % (Auto) Eos % (Auto) Baso % (Auto) Absolute Neuts (auto) Absolute Lymphs (auto) Total Counted Sodium Potassium Chloride Carbon Dioxide Anion Gap BUN Creatinine Estim Creat Clear Calc Est GFR (MDRD) Af Amer Est GFR (MDRD) Non-Af BUN/Creatinine Ratio Glucose Calcium Serum , Qual NEGATIVE Salicylates 5.7 Urine Opiates Screen NEGATIVE Urine Methadone Screen NEGATIVE Acetaminophen 11.5 Ur Barbiturates Screen NEGATIVE Ur Phencyclidine Scrn NEGATIVE Ur Amphetamines Screen NEGATIVE U Methamphetamin-MDMA NEGATIVE U Benzodiazepines Scrn NEGATIVE Urine Cocaine Screen NEGATIVE U Cannabinoids Screen NEGATIVE Ur Drug Screen Comment Ethyl Alcohol POC Glucose 09/08/18 20:04 POC Glucose 105 Assessment/Plan The patient was seen and examined. Patient has history of chronic back pain and had shoulder injection recently. History of pain dependence. Please see discharge summary of today 09/09/2018 which also includes physical examination and clinical findings.
--- NOTE | 2018-09-09 15:24 | DCINST_ITS ---
- Discharge Diagnoses Current Active Problems: Current Active and Chronic Problems (Last Reviewed 09/08/18 @ 19:05 by Keon Colon DO) Gabapentin overdose (Acute) You will use the following diet at home:: Cardiac Your food should be the consistency of: Regular Your liquids should be the consistency of: Regular/Thin Discharge Activity: Return to Normal Activity Allergies/Adverse Reactions: Allergies aspirin Adverse Reaction (Verified 09/08/18 16:53) Nausea/Vom/Diarrhea erythromycin base [Erythromycin Base] Adverse Reaction (Verified 09/08/18 16:53) Vomiting,diarrhea NSAIDS (Non-Steroidal Anti-Inflamma Adverse Reaction (Verified 09/08/18 16:53) Vomiting,diarrhea Medications to take at Discharge Duloxetine Hcl [Cymbalta] 120 mg PO DAILY 03/28/15 Levothyroxine [Synthroid] 25 mcg PO DAILY 03/28/15 Metoprolol Tartrate [Lopressor (beta aislinn)] 25 mg PO BID 03/28/15 Tolterodine Tartrate [Tolterodine Tartrate ER] 4 mg PO DAILY 04/18/16 Lorazepam [Ativan] 1 mg PO TID 08/22/16 Ferrous Sulfate 325 mg PO BID 09/11/16 Zolpidem Tartrate [Ambien] 10 mg PO QHS PRN 09/11/16 Cholecalciferol (Vitamin D3) [Vitamin D3] 50,000 unit PO TH 10/08/17 pantoprazole 40 mg tablet,delayed release 40 mg PO BID 12/27/17 Ondansetron HCl [Zofran] 4 mg PO Q6H PRN PRN 01/02/18 Lisinopril [Zestril] 20 mg PO QHS 07/21/18 Methocarbamol 750 mg PO TID 07/21/18 Primary Care Physician: Care Physician,No Primary [Primary Care Provider] - Please follow up with your Primary Care Physician in: 1 week Test Results: Test results from this visit will be discussed in further detail at your follow- up appointment, if applicable. Proposed Discharge Date: 09/09/18
[2018-09-09 15:25] VITALS: BP 160/87; PULSE 67; RESP 18; TEMP 36.9; O2SAT 95
--- NOTE | 2018-09-09 15:26 | DS.PCM_ITS ---
<Armando Hudson - Last Filed: 09/09/18 15:26> Discharge Date and Diagnosis Date of Admission: 09/08/18 Date of Discharge: 09/09/18 - 3 - Primary Discharge Diagnosis Active and Suspected Problems (Last Reviewed 09/08/18 @ 19:05 by Keon Colon DO) Gabapentin overdose (Acute) Fall, contusion left hip Chronic pain 2/2 lumbar fusion Hx SSS with pacemaker Anxiety/Depression Tobacco abuse Hypothyroidism - Secondary Discharge Diagnosis Chronic Problems (Last Reviewed 09/08/18 @ 19:05 by Keon Colon DO) Sick sinus syndrome (Chronic) Presence of cardiac pacemaker (Chronic) h/o back surgery (Chronic) history excision neuroendocrine tumor (Chronic) Neuroendocrine neoplasm of stomach (Chronic) History of anxiety disorder (Chronic) Benign essential hypertension (Chronic) Obesity (Chronic) Familial combined hyperlipidemia (Chronic) Tobacco dependence syndrome (Chronic) Chronic pain syndrome (Chronic) Chronic lower back pain (Chronic) Sinus pause (Chronic) Hospital Course and Treatment Consultations 09/09/18 10:31 Consult: Mental Health/Crisis Routine Reason for consult?: overdose Date Notified:: 09/09/18 Time notified:: 10:31 Operations: None Procedures: None Summary of Care Provided: Hospital Course: The patient is a 53 year old F with pmhx as above who presented to the ER after being told by her PCP to come for overdosing on gabapentin. She states her back pain is worse and that her pain management doctor made it worse with an epidural two weeks prior. She could not get relief of her back pain, so throughout the day she took more and more gabapentin. In the ER she estimated that she took 30 gabapentin (300mg), 12 tylenol, 1 ativan. She denied suicide attempt, and repeatedly stated she was just trying to help her pain. She was admitted for gabapentin overdose. She was pink slipped and crisis was consulted. EKG was normal. She had leukocytosis, however no other evidence of infection. She had elevated BP initially however vitals were otherwise unremarkable. She was very agitated throughout her stay in the ER and on the floor. The night of admission she fell walking to the bathroom. She denied dizziness/LH. She stated her left leg just gave out. She refused xray despite ongoing left hip and proximal leg pain. She did not strike her head. She was offered tylenol and lidocaine patches for pain. Throughout her stay she was angry, and was also threatening and combative towards the sitter in the room. Crisis evaluated the patient the following day and felt that she was not suicidal and could return home safely. She was taken off of her gabapentin and should not resume it. She needs to follow up with her PCP in 1 week. She would benefit from referral to counseling as an outpatient. She was discharged home in stable condition. This patient was seen by Armando Hudson PA-C under the supervision of Dr. Augustin. [] - Physical Exam General: Alert, Oriented x3, Cooperative HEENT: Atraumatic, PERRLA, EOMI, Normocephalic Neck: Supple, No JVD, Negative Carotid Bruits Lungs: Clear to auscultation, Normal air movement Cardiovascular: Regular rate, No murmurs Abdomen: Bowel Sounds Present, Soft, Non Tender, Obese Extremities: No edema, Capillary Refill Less than 3 Seconds Skin: No rashes, No breakdown Musculoskeletal: No Tenderness to Palpation of Joints or Extremities Neurological: Cranial nerves II-XII grossly intact Psych/Mental Status: Normal Affect, Appropriate Vital Signs Temp Pulse Resp BP Pulse Ox 98.5 F 68 16 147/96 H 95 09/09/18 10:00 09/09/18 10:19 09/09/18 10:00 09/09/18 10:19 09/09/18 06:16 Oxygen Delivery Method Room Air Weight: 172 lb 12.8 oz Body Mass Index (BMI) 31.1 Finger Stick Blood Glucose 92 Intake and Output for Last 24 Hours 09/07/18 09/08/18 09/09/18 23:59 23:59 23:59 Intake Total 480 / 480 100 / 100 Balance 480 / 480 100 / 100 Laboratory Tests Past 24 Hrs 09/08/18 09/08/18 09/08/18 17:31 17:31 17:31 WBC 17.0 H RBC 4.92 Hgb 15.1 H Hct 45.4 MCV 92.3 MCH 30.7 MCHC 33.3 RDW 13.5 RDW Differential 44.6 H Plt Count 238 MPV 9.7 Immature Gran % (Auto) 0.900 Neut % (Auto) 68.4 Lymph % (Auto) 23.0 [place] % (Auto) 6.2 Eos % (Auto) 1.3 Baso % (Auto) 0.2 Absolute Neuts (auto) 11.6 H Absolute Lymphs (auto) 3.91 Total Counted Not Reportable Sodium 142 Potassium 4.1 Chloride 110 H Carbon Dioxide 25.0 Anion Gap 7 BUN 15 Creatinine 0.96 Estim Creat Clear Calc 53.60 Est GFR (MDRD) Af Amer 78 Est GFR (MDRD) Non-Af 65 BUN/Creatinine Ratio 15.7 Glucose 103 Calcium 9.1 Serum , Qual Salicylates Urine Opiates Screen Urine Methadone Screen Acetaminophen Ur Barbiturates Screen Ur Phencyclidine Scrn Ur Amphetamines Screen U Methamphetamin-MDMA U Benzodiazepines Scrn Urine Cocaine Screen U Cannabinoids Screen Ur Drug Screen Comment Ethyl Alcohol 10.0 09/08/18 09/08/18 09/08/18 17:31 17:31 18:00 WBC RBC Hgb Hct MCV MCH MCHC RDW RDW Differential Plt Count MPV Immature Gran % (Auto) Neut % (Auto) Lymph % (Auto) [place] % (Auto) Eos % (Auto) Baso % (Auto) Absolute Neuts (auto) Absolute Lymphs (auto) Total Counted Sodium Potassium Chloride Carbon Dioxide Anion Gap BUN Creatinine Estim Creat Clear Calc Est GFR (MDRD) Af Amer Est GFR (MDRD) Non-Af BUN/Creatinine Ratio Glucose Calcium Serum , Qual NEGATIVE Salicylates 5.7 Urine Opiates Screen NEGATIVE Urine Methadone Screen NEGATIVE Acetaminophen 11.5 Ur Barbiturates Screen NEGATIVE Ur Phencyclidine Scrn NEGATIVE Ur Amphetamines Screen NEGATIVE U Methamphetamin-MDMA NEGATIVE U Benzodiazepines Scrn NEGATIVE Urine Cocaine Screen NEGATIVE U Cannabinoids Screen NEGATIVE Ur Drug Screen Comment Ethyl Alcohol POC Glucose 09/08/18 20:04 POC Glucose 105 Discharge Diet: Low fat/ Low Cholesterol, 2000 mg Sodium Diet Discharge Activity: Return to Normal Activity Home Medications: Medications to take at Discharge Duloxetine Hcl [Cymbalta] 120 mg PO DAILY 03/28/15 Levothyroxine [Synthroid] 25 mcg PO DAILY 03/28/15 Metoprolol Tartrate [Lopressor (beta aislinn)] 25 mg PO BID 03/28/15 Tolterodine Tartrate [Tolterodine Tartrate ER] 4 mg PO DAILY 04/18/16 Lorazepam [Ativan] 1 mg PO TID 08/22/16 Ferrous Sulfate 325 mg PO BID 09/11/16 Zolpidem Tartrate [Ambien] 10 mg PO QHS PRN 09/11/16 Cholecalciferol (Vitamin D3) [Vitamin D3] 50,000 unit PO TH 10/08/17 pantoprazole 40 mg tablet,delayed release 40 mg PO BID 12/27/17 Ondansetron HCl [Zofran] 4 mg PO Q6H PRN PRN 01/02/18 Lisinopril [Zestril] 20 mg PO QHS 07/21/18 Methocarbamol 750 mg PO TID 07/21/18 Primary Care Physician: Care Physician,No Primary [Primary Care Provider] - Please follow up with your Primary Care Physician in: 1 week Additional Instructions: Do not take gabapentin after discharge. Disposition: Home Minutes spent on discharge:: 35 Patient Condition:: Stable Medical Necessity - Tobacco Use Smoking Status: Current every day smoker Tobacco Use: Vapor Meaningful Use Info Meaningful Use Diagnoses (Choose all that apply): None applicable <Josh Augustin - Last Filed: 09/09/18 16:54> Discharge Date and Diagnosis - Secondary Discharge Diagnosis Chronic Problems (Last Reviewed 09/08/18 @ 19:05 by Keon Colon DO) Sick sinus syndrome (Chronic) Presence of cardiac pacemaker (Chronic) h/o back surgery (Chronic) history excision neuroendocrine tumor (Chronic) Neuroendocrine neoplasm of stomach (Chronic) History of anxiety disorder (Chronic) Benign essential hypertension (Chronic) Obesity (Chronic) Familial combined hyperlipidemia (Chronic) Tobacco dependence syndrome (Chronic) Chronic pain syndrome (Chronic) Chronic lower back pain (Chronic) Sinus pause (Chronic) Hospital Course and Treatment Consultations 09/09/18 10:31 Consult: Mental Health/Crisis Routine Reason for consult?: overdose Date Notified:: 09/09/18 Time notified:: 10:31 Summary of Care Provided: This patient was seen in conjunction with Armando DIAZ. I have independently interviewed and examined the patient and reviewed pertinent history, examination findings, laboratory and plan of management. I have reviewed the note and agree with the documented findings with the few additional points. In brief, patient is admitted for drug overdose of multiple medications including gabapentin, Tylenol and lorazepam. Patient has restlessness, anxiety and yelling. Furthermore, she was pink slipped in crisis management was consulted. She further said her pain exacerbated after she got back injection. She has been refusing x-ray and further evaluation and imaging. Mental health crisis was called and she cleared for discharge. As per medical crisis evaluation, she is not suicidal and could return home safely. Discharge medication reconciliation done. Discharge follow-up instructions completed. Discharge process discussed with the patient and all questions were answered to patient's satisfaction. Patient advised to follow-up PCP in 1 week. Also referral for outpatient counseling. Total time spent, exact 35 minutes on discharge meds reconciliation, examination, review of imaging and blood test and discussion with the patient on follow-up instructions. I have discussed my assessment with Armando DIAZ and orders have been reviewed. [] Subjective: Seen and examined. Patient recently had back injection and after that she felt sciatica pain shooting down to her left lower extremity. Patient also had pain. She was further admitted with drug overdose after she took 12 tablets of Tylenol, 30 tablets of gabapentin and two 1 mg tablets of lorazepam. She had agitation, yelling and restlessness. [facility] Patient was found physically stable and therefore mental health crisis was called for drug overdose. - Physical Exam General: Alert, Oriented x3, Cooperative HEENT: Atraumatic, PERRLA, EOMI, Normocephalic Neck: Supple, No JVD, Negative Carotid Bruits Lungs: Clear to auscultation, Normal air movement, No rhonchi, No wheeze, No rales Cardiovascular: Regular rate, Regular Rhythm, Normal S1, Normal S2, No murmurs Abdomen: Bowel Sounds Present, Soft, Non Tender, Obese Extremities: No edema, Capillary Refill Less than 3 Seconds Skin: No rashes, No breakdown Musculoskeletal: Arthritic Changes, Tenderness - Tenderness patient over lumbar and paraspinal muscles. Surgical scar present throughout lumbar spine. Neurological: Cranial nerves II-XII grossly intact, Deep Tendon Reflexes 2+/4 and Symmetrical, Neuro grossly intact Psych/Mental Status: Normal Affect, Appropriate Vital Signs Temp Pulse Resp BP Pulse Ox 98.5 F 67 18 160/87 H 95 09/09/18 15:25 09/09/18 15:25 09/09/18 15:25 09/09/18 15:25 09/09/18 15:25 Oxygen Delivery Method Room Air Weight: 172 lb 12.8 oz Body Mass Index (BMI) 31.1 Finger Stick Blood Glucose 92 Intake and Output for Last 24 Hours 09/07/18 09/08/18 09/09/18 23:59 23:59 23:59 Intake Total 480 / 480 100 / 100 Balance 480 / 480 100 / 100 Laboratory Tests Past 24 Hrs 09/08/18 09/08/18 09/08/18 17:31 17:31 17:31 WBC 17.0 H RBC 4.92 Hgb 15.1 H Hct 45.4 MCV 92.3 MCH 30.7 MCHC 33.3 RDW 13.5 RDW Differential 44.6 H Plt Count 238 MPV 9.7 Immature Gran % (Auto) 0.900 Neut % (Auto) 68.4 Lymph % (Auto) 23.0 [place] % (Auto) 6.2 Eos % (Auto) 1.3 Baso % (Auto) 0.2 Absolute Neuts (auto) 11.6 H Absolute Lymphs (auto) 3.91 Total Counted Not Reportable Sodium 142 Potassium 4.1 Chloride 110 H Carbon Dioxide 25.0 Anion Gap 7 BUN 15 Creatinine 0.96 Estim Creat Clear Calc 53.60 Est GFR (MDRD) Af Amer 78 Est GFR (MDRD) Non-Af 65 BUN/Creatinine Ratio 15.7 Glucose 103 Calcium 9.1 Serum , Qual Salicylates Urine Opiates Screen Urine Methadone Screen Acetaminophen Ur Barbiturates Screen Ur Phencyclidine Scrn Ur Amphetamines Screen U Methamphetamin-MDMA U Benzodiazepines Scrn Urine Cocaine Screen U Cannabinoids Screen Ur Drug Screen Comment Ethyl Alcohol 10.0 09/08/18 09/08/18 09/08/18 17:31 17:31 18:00 WBC RBC Hgb Hct MCV MCH MCHC RDW RDW Differential Plt Count MPV Immature Gran % (Auto) Neut % (Auto) Lymph % (Auto) [place] % (Auto) Eos % (Auto) Baso % (Auto) Absolute Neuts (auto) Absolute Lymphs (auto) Total Counted Sodium Potassium Chloride Carbon Dioxide Anion Gap BUN Creatinine Estim Creat Clear Calc Est GFR (MDRD) Af Amer Est GFR (MDRD) Non-Af BUN/Creatinine Ratio Glucose Calcium Serum , Qual NEGATIVE Salicylates 5.7 Urine Opiates Screen NEGATIVE Urine Methadone Screen NEGATIVE Acetaminophen 11.5 Ur Barbiturates Screen NEGATIVE Ur Phencyclidine Scrn NEGATIVE Ur Amphetamines Screen NEGATIVE U Methamphetamin-MDMA NEGATIVE U Benzodiazepines Scrn NEGATIVE Urine Cocaine Screen NEGATIVE U Cannabinoids Screen NEGATIVE Ur Drug Screen Comment Ethyl Alcohol POC Glucose 09/08/18 20:04 POC Glucose 105 Code Visit Inpatient E&M: 24542 Disch Hosp
--- NOTE | 2018-09-09 15:43 | NURSING ---
BELONGINGS RETURNED AND PT UP TO DRESS FOR DC. INSTRUCTIONS GIVEN. TALKED WITH DAUGHTER MARTINE BUT LIVES IN [place] AND REPORTED THAT OTHER SISTER HERE BUT THAT PT WANTS HER OUT OF HER LIFE PT ON PHONE AND CALLED NEIGHBOR TO COME. PT UPSET OVER NO MEDICATION PRESCRIPTION GIVEN
--- NOTE | 2018-09-09 15:47 | NURSING ---
PT REFUSING WC AND WALKED OFF UNIT TO GO HOME. PT STILL YELLING GETS ON ELEVATOR.
== END 2018-09-09 15:25 | disposition home or self-care (01) ==
LOC: ED 17:34 → PCU 19:21
PROVIDERS: Emergency Provider Emergency Medicine; Visit Provider Internal Medicine
DX: T42.6X1A Poisoning by other antiepileptic and sedative-hypnotic drugs, accidental (unintentional), initial encounter (principal); F43.10 Post-traumatic stress disorder, unspecified; F32.9 Major depressive disorder, single episode, unspecified; I10 Essential (primary) hypertension; E78.49 Other hyperlipidemia; G89.4 Chronic pain syndrome; E66.9 Obesity, unspecified; E03.9 Hypothyroidism, unspecified; Z79.899 Other long term (current) drug therapy; Z95.0 Presence of cardiac pacemaker; Z68.31 Body mass index [BMI] 31.0-31.9, adult; Z71.3 Dietary counseling and surveillance; F17.290 Nicotine dependence, other tobacco product, uncomplicated
CPT/HCPCS: 80048; 80307; 80320; 80329; 82962; 84703; 85025; 93005; 99218; 99285; A4216; G0378; G0480

== ENCOUNTER 2018-11-01 17:28 | Emergency (ER) | payer MEDICARE, MEDICAID, SELFPAY ==
[2018-10-08 12:44] VITALS: BMI 29.7
[2018-11-01 17:29] VITALS: BP 138/96; PULSE 89; RESP 20; TEMP 36.8; O2SAT 96; BMI 31.1
[2018-11-01 18:30] LABS: Bacteria 0 SEEN /hpf (None Seen); Mucous, Urine 0 SEEN /hpf (<or=2+); Red Blood Cells-Urine 0 SEEN /hpf (0-5); White Blood Cells 0 SEEN /hpf (0-5)
[2018-11-01 18:33] LABS: Color, Urine Yellow (Yellow); Glucose, Dipstick Normal (Normal); Ketone-Dipstick Negative (Negative); Leukocyte Esterase-Dipstick Negative /ul (Negative); Nitrite-Dipstick Negative (Negative); Occult Blood-Urine Negative /ul (Negative); Protein-Dipstick Negative (Negative); Urine Bilirubin Dipstick Negative (Negative); Urine Clarity Sl. Cloudy (Clear); Urine Urobilinogen Normal (Normal)
[2018-11-01 18:38] LABS: Absolute Lymphocyte Count 3.68 X10^3/uL (0.83-4.51); Absolute Neutrophil Count 8.6 X10^3/uL (2.0-7.7); Basophil# 0.07 X10^3/uL; Basophil% 0.5 % (0-1); Eosinophil# 0.26 X10^3/uL; Eosinophils% 1.9 % (0-5); Hematocrit 45.2 % (37-47); Lymphocyte # 3.68 X10^3/ul (4.0); Lymphocyte % 27.2 % (19-41); Mean Corp Hgb Conc 33.2 g/dL (32-36); Mean Corpuscular Hgb 31.1 pg (27.0-32.0); Mean Corpuscular Volume 93.8 fL (81-99); Mean Platelet Vol. 9.4 fl (6.2-12.0); Monocyte# 0.82 X10^3/uL; Monocyte% 6.1 % (0-10); NRBC Flagged by Analyzer 0 % (0-5); Neutrophil # 8.56 X10^3/uL (2.7-7.7); Neutrophil % 63.3 % (47-70); Platelet Count 252 K/mm3 (150-450); RBC Distribution Width CV 13.9 % (11.6-14.6); RBC Distribution Width SD 47.8 fl (35.1-43.9); Red Blood Count 4.82 M/mm3 (4.2-5.4); White Blood Count 13.5 K/mm3 (4.4-11.0)
--- NOTE | 2018-11-01 18:44 | CT_ITS ---
STUDY: CT ABDOMEN AND PELVIS WITH CONTRAST REASON FOR EXAM: Female, 53 years old. Right-sided pain for one month and elevated WBC RADIATION DOSAGE (If Supplied By Facility): CTDIvol = ( 20.94 ) mGy, DLP = ( 1116.86 ) mGycm TECHNIQUE: Transaxial images were obtained from the dome of the diaphragm to the symphysis pubis with oral contrast. 100ML IV/Oral Isovue 300 was administered. Sagittal and coronal images were reconstructed. Individualized dose optimization techniques were used for this CT. COMPARISON: 01/17/2018 FINDINGS: The visualized lung bases are unremarkable. The visualized portions of the heart are within normal limits. Pacemaker leads. Normal liver. There are surgical clips in the gallbladder fossa consistent with a prior cholecystectomy. Normal spleen. Normal pancreas. Normal bilateral adrenal glands. Normal right kidney. Normal left kidney. Postoperative gastric changes. Normal small intestine. Normal colon. There is non-visualization of the appendix, which is reportedly absent. Normal abdominal aorta. Normal inferior vena cava. Normal retroperitoneum. Normal urinary bladder. Normal abdominal wall. Multiple postoperative lumbar changes. CT/Abdomen/Pelvis WITH Contrast IMPRESSION: No evidence of acute intestinal pathology or acute obstructive uropathy. Electronically Signed: Jacky Wasserman MD at 21:16 EDT Tel , Service support ,
[2018-11-01 18:45] LABS: Anion Gap 8 (5-15); BUN 15 mg/dL (7-18); BUN/Creat Ratio 15.4 RATIO (10-20); Calcium,Total 9.4 mg/dL (8.5-10.1); Chloride 112 mmol/L (98-107); Creatinine, Serum 0.97 mg/dL (0.55-1.02); EST Glomerular Filtration Rate 64 mL/min (>60); Est Glom Filt Rate - Afr Amer 77 mL/min (>60); Estimated Creatinine Clearance 53.05 ml/min; Glucose 90 mg/dL (74-106); Potassium 3.7 mmol/L (3.5-5.1); Sodium Level 144 mmol/L (136-145)
[2018-11-01 18:46] LABS: Squamous Epithelial Cells - UA 0-5 SEEN /hpf (5-10)
[2018-11-01 18:52] LABS: Internal QC Validated? YES +Cl - CLEAR BKGD; Pregnancy, Serum, hCG Quali. NEGATIVE Negative
[2018-11-01 19:21] LABS: Lipase 115 U/L (73-393)
[2018-11-01 19:22] LABS: AST(SGOT) 17 U/L (15-37); Alanine Aminotransfer ALT/SGPT 23 U/L (13-56); Albumin, Serum 3.8 g/dL (3.2-5.0); Alkaline Phosphatase 104 U/L (45-117); Bilirubin, Direct 0.06 mg/dL (0.00-0.30); Globulin 4.2 g/dL (2.2-4.2)
[2018-11-01] MEDS: 0.9% Normal Saline 1,000 ML 250 ML IV (19:24)
[2018-11-01] MEDS: Ondansetron 4 MG/2 ML Vial IV (19:24)
[2018-11-01] MEDS: Morphine 4 MG/ML Syringe IV ×2 (19:25→20:20)
--- NOTE | 2018-11-01 19:43 | ED.RN ---
ED DR INFORMED ABOUT PT PAIN. NO ADDITIONAL ORDERS PLACED. AKIKO LOPES
[2018-11-01 20:04] VITALS: BP 160/94; PULSE 78; RESP 15; O2SAT 96
--- NOTE | 2018-11-01 20:10 | ED.VIS.GEN ---
History of Present Illness Chief Complaint: Abd Pain Informant: Patient Onset: Month(s) Context: Sudden Onset Timing: Continuous Quality: Pain Location: Right upper quadrant Current Severity: Mild Maximum Severity: Moderate Worsened by: Food Relieved by: Nothing Associated Symptoms: Nausea Narrative: Patient is a middle-age woman with history of neuroendocrine tumor. She is status post partial gastrectomy, cholecystectomy and presents with 1 month of right upper quadrant pain that is gotten worse. She states she was taking tramadol for the discomfort. The tramadol minimize the discomfort but never alleviated the discomfort. She denies hematemesis, melena hematochezia. She denies constipation or diarrhea. She denies change in color, consistency or caliber of her stool. She is scheduled to see a petroleum laboratory technician November 05. She presents because of worsening pain. She denies fever, chills night sweats. Denies weight gain or weight loss. She denies night sweats. Prior similar symptoms: Yes Recent Illness/Hospitalization: Yes - Past Medical History (1) Chronic pain syndrome Status: Chronic (2) Essential (primary) hypertension Status: Chronic (3) Familial combined hyperlipidemia Status: Chronic (4) History of anxiety disorder Status: Chronic (5) Neuroendocrine neoplasm of stomach Status: Chronic (6) Obesity Status: Chronic (7) Presence of permanent cardiac pacemaker Status: Chronic Comment: 2003, Gen change 2013 (8) Sick sinus syndrome Status: Chronic (9) Tobacco dependence syndrome Status: Chronic Past Medical History - Allergies and Home Meds Allergies/Adverse Reactions: Allergies aspirin Adverse Reaction (Verified 11/01/18 17:28) Nausea/Vom/Diarrhea erythromycin base [Erythromycin Base] Adverse Reaction (Verified 11/01/18 17:28) Vomiting,diarrhea NSAIDS (Non-Steroidal Anti-Inflamma Adverse Reaction (Verified 11/01/18 17:28) Vomiting,diarrhea Primary Care Physician: Charla Wadsworth MD [Primary Care Provider] - Prior records reviewed: Yes Surgical History: pacemaker implantation, - - elbow surgery, hysterectemy,appendectemy, sever lap surgeries on abd, removed masses in her neck Lives: Spouse/ Significant Other Smoking Status: Never smoker Alcohol: Rare Drugs: None - Family History Maternal Family History: Family History (Last Updated 10/08/18 @ 12:57 by Smita Obregon) Daughter Multiple sclerosis Father Heart disease Hypertension CAD (coronary artery disease) Multiple sclerosis Grandfather Heart disease Uncle Heart disease Aunt Cancer Sister Colon cancer Family History: Reports: No pertinent history Review of Systems General: Denies: Chills, Fever, Malaise, Subjective, Sweats, Weight loss Eyes: Denies: Visual changes - bilaterally, Blurred Vision - bilaterally ENT: Denies: Rhinorrhea, Sore throat Cardiovascular: Denies: Chest pain, Palpitations, Heart racing Respiratory: Denies: Dyspnea, Cough, Sputum, Dyspnea on exertion Gastrointestinal: Reports: Abdominal pain, Nausea. Denies: Vomiting, Diarrhea, Constipation, Melena, Hematochezia Genitourinary: Denies: Dysuria, Hematuria, Frequency Musculoskeletal: Denies: Myalgias, Arthralgias, Neck pain, Back pain, Extremity Pain Skin: Denies: Rash, Wounds Neurological: Denies: Headache, Weakness, Numbness Endocrine: Denies: Polyuria, Polydipsia Hematologic: Denies: Easy bruising, Easy bleeding Physical Exam Vital Signs/Narrative: Vital Signs Temp Pulse Resp BP Pulse Ox 11/01/18 20:04 78 15 160/94 H 96 11/01/18 17:29 98.2 F 89 20 H 138/96 H 96 Inital Vital Signs reviewed: Yes General: Well nourished, Well developed, No Acute Distress Head: Normocephalic, Atraumatic Eyes: Perrl, EOMI ENT: Moist mucous membranes, No rhinorrhea Neck: Supple, Nontender Cardiovascular: Regular rate, Regular rhythm, No murmurs, Normal S1, Normal S2 Respiratory: No distress, CTA bilaterally, Chest nontender Abdomen: Soft, No masses, Tender, Guarding, Hypoactive bowel sounds. Negative for: Nontender, Nondistended, Normal bowel sounds, Rebound tenderness, Hyperactive bowel sounds, Hepatomegaly, Splenomegaly, Mass, Dietrich's sign Rectal: Deferred Back: Nontender, Normal Inspection Extremities: Nontender, No edema Skin: Normal color, No rash, No Trauma. Negative for: Cyanosis, Diaphoresis, Jaundice Neurological: Alert, Oriented x3, Cranial nerves II-XII grossly intact, Normal Strength, Normal Sensation Psychological: Normal affect, Normal Mood Diagnostic/Tx/Re-eval Impressions Abdomen/Pelvis CT 11/01/18 18:44 IMPRESSION: No evidence of acute intestinal pathology or acute obstructive uropathy. Electronically Signed: Jacky Wasserman MD at 21:16 EDT Tel , Service support , 11/01/18 18:44 Abdomen/Pelvis WITH Contrast [CT] Stat Laboratory Results 11/01/18 11/01/18 11/01/18 18:15 18:15 18:15 WBC 13.5 H RBC 4.82 Hgb 15.0 Hct 45.2 MCV 93.8 MCH 31.1 MCHC 33.2 RDW Std Deviation 47.8 H RDW Coeff of Ross 13.9 Plt Count 252 MPV 9.4 Immature Gran % (Auto) 1.000 H Neut % (Auto) 63.3 Lymph % (Auto) 27.2 [place] % (Auto) 6.1 Eos % (Auto) 1.9 Baso % (Auto) 0.5 Absolute Neuts (auto) 8.6 H Absolute Lymphs (auto) 3.68 Nucleated RBC % 0 Sodium 144 Potassium 3.7 Chloride 112 H Carbon Dioxide 24.0 Anion Gap 8 BUN 15 Creatinine 0.97 Estim Creat Clear Calc 53.05 Est GFR (MDRD) Af Amer 77 Est GFR (MDRD) Non-Af 64 BUN/Creatinine Ratio 15.4 Glucose 90 Calcium 9.4 Total Bilirubin Direct Bilirubin AST ALT Alkaline Phosphatase Total Protein Albumin Globulin Lipase Serum , Qual NEGATIVE Urine Color Urine Clarity Urine pH Ur Specific [place] Urine Protein Urine Glucose (UA) Urine Ketones Urine Occult Blood Urine Nitrite Urine Bilirubin Urine Urobilinogen Ur Leukocyte Esterase Urine RBC Urine WBC Ur Squamous Epith Cells Urine Bacteria Urine Mucus 11/01/18 11/01/18 11/01/18 18:15 18:15 18:24 WBC RBC Hgb Hct MCV MCH MCHC RDW Std Deviation RDW Coeff of [place] Plt Count MPV Immature Gran % (Auto) Neut % (Auto) Lymph % (Auto) [place] % (Auto) Eos % (Auto) Baso % (Auto) Absolute Neuts (auto) Absolute Lymphs (auto) Nucleated RBC % Sodium Potassium Chloride Carbon Dioxide Anion Gap BUN Creatinine Estim Creat Clear Calc Est GFR (MDRD) Af Amer Est GFR (MDRD) Non-Af BUN/Creatinine Ratio Glucose Calcium Total Bilirubin 0.20 Direct Bilirubin 0.06 AST 17 ALT 23 Alkaline Phosphatase 104 Total Protein 8.0 Albumin 3.8 Globulin 4.2 Lipase 115 Serum , Qual Urine Color Yellow Urine Clarity Sl. Cloudy Urine pH 6.0 Ur Specific [place] 1.010 Urine Protein Negative Urine Glucose (UA) Normal Urine Ketones Negative Urine Occult Blood Negative Urine Nitrite Negative Urine Bilirubin Negative Urine Urobilinogen Normal Ur Leukocyte Esterase Negative Urine RBC 0 SEEN Urine WBC 0 SEEN Ur Squamous Epith Cells 0-5 SEEN Urine Bacteria 0 SEEN Urine Mucus 0 SEEN Since work-up is unremarkable. - Medical Decision Making In light of patient's past history and concern for recurrence/metastasis CT of the abdomen with p.o. and IV contrast was obtained. Appropriate blood work was obtained. She was medicated with morphine and Zofran. She is required multiple doses of morphine. She states there is no improvement. Since her work-up is negative will discharge to home to follow-up with petroleum laboratory technician. Abdominal pain of unknown etiology ED Disposition - Plan for ED Patient: Disposition: Home or Assisted Living Diagnosis: Right upper quadrant abdominal pain Instructions: ABDOMINAL PAIN, Unknown Cause, (Female) Referrals: Charla Wadsworth MD [Primary Care Provider] - Additional Instructions: Appointment with petroleum laboratory technician. The cause of your pain is unknown. Since this pain has been going on for 1 month recommend contacting your primary care physician to discuss pain management.
[2018-11-01 21:37] VITALS: BP 158/99; PULSE 82; RESP 17; O2SAT 96
== END 2018-11-01 21:37 | disposition home or self-care (01) ==
PROVIDERS: Emergency Provider Emergency Medicine; Family Provider Internal Medicine; PCP Internal Medicine
DX: R10.11 Right upper quadrant pain (principal); G89.4 Chronic pain syndrome; I49.5 Sick sinus syndrome; I10 Essential (primary) hypertension; E78.49 Other hyperlipidemia; F41.9 Anxiety disorder, unspecified; E66.9 Obesity, unspecified; F17.200 Nicotine dependence, unspecified, uncomplicated; Z79.899 Other long term (current) drug therapy; Z88.6 Allergy status to analgesic agent; Z88.1 Allergy status to other antibiotic agents; Z95.0 Presence of cardiac pacemaker; Z90.3 Acquired absence of stomach [part of]; Z90.49 Acquired absence of other specified parts of digestive tract
CPT/HCPCS: 74177; 80048; 80076; 81001; 83690; 84703; 85025; 96361; 96374; 96375; 96376; 99283; J7030; Q9967; A4216; J2405

== ENCOUNTER 2018-11-03 20:44 | Emergency (ER) | payer MEDICARE, MEDICAID, SELFPAY ==
[2018-11-03 20:46] VITALS: BP 144/105; PULSE 81; RESP 16; TEMP 37.7; O2SAT 96; BMI 31.4
[2018-11-03 20:50] VITALS: BP 144/105; PULSE 84; RESP 16; O2SAT 97
--- NOTE | 2018-11-03 21:12 | ED.DCSUM_ITS ---
History of Present Illness Chief Complaint: Abd Pain Informant: Patient - Abdominal Pain/Flank Pain Onset: Month(s) - 1 Context: Gradual Onset Timing: Intermittent Quality: Aching Location: Epigastric Current Severity: Severe Maximum Severity: Severe Worsened by: Food - shortly after eating Relieved by: Nothing - Nausea/Vomiting/Emesis GI Symptom: Nausea, Vomiting Quality: Nonbilious. Negative for: Blood streaks, Coffee ground, Hematemesis Severity: Moderate - 3x today - Diarrhea/Melena/Hematochezia GI Symptom: Diarrhea, Melena - possibly -- pt states some of her stools are black and tarry. Negative for: Hematochezia Severity: Moderate - about 5/day Associated Symptoms: Negative for: Dysuria, Frequency, Hematuria, Urgency Narrative: Patient was seen here 2 days ago with the same symptoms, she states they are worse. She denies any new symptoms. Epigastric and just right of epigastric discomfort, she has some cramping in her low back but denies it radiating or migrating anywhere else. She is having trouble drinking because of vomiting. She is been trying to take Phenergan at home but cannot keep it down. She had a CT scan couple days ago that was negative. Pain is triggered immediately after eating just about anything. She has already had a cholecystectomy. She had a prior neuroendocrine tumor resection. CT 2 days ago showed no evidence for any masses, bowel perforation, or anything else acute. She has a GI appt in [address] Mack for this pain. - Past Medical History (1) Chronic lower back pain Status: Chronic (2) Chronic pain syndrome Status: Chronic (3) Essential (primary) hypertension Status: Chronic (4) Familial combined hyperlipidemia Status: Chronic (5) History of anxiety disorder Status: Chronic (6) Neuroendocrine neoplasm of stomach Status: Chronic (7) Presence of permanent cardiac pacemaker Status: Chronic Comment: 2003, Gen change 2013 (8) Sick sinus syndrome Status: Chronic (9) PTSD (post-traumatic stress disorder) Status: Chronic (10) GERD (gastroesophageal reflux disease) Status: Chronic (11) Neuropathy Status: Chronic (12) Hypothyroidism Status: Chronic (13) ELOY (obstructive sleep apnea) Status: Chronic (14) Anxiety and depression Status: Chronic Past Medical History - Allergies and Home Meds Allergies/Adverse Reactions: Allergies aspirin Adverse Reaction (Verified 11/03/18 20:50) Nausea/Vom/Diarrhea erythromycin base [Erythromycin Base] Adverse Reaction (Verified 11/03/18 20:50) Vomiting,diarrhea NSAIDS (Non-Steroidal Anti-Inflamma Adverse Reaction (Verified 11/03/18 20:50) Vomiting,diarrhea Primary Care Physician: Alan Mack MD [NON-STAFF] - Keep Vitaliy appointment (on Saturday (tomorrow)) Surgical History: cholecystectomy, pacemaker implantation, - - elbow surgery, hysterectemy,appendectemy, sever lap surgeries on abd, removed masses in her neck Smoking Status: Former smoker Alcohol: None Drugs: None - Family History Maternal Family History: Family History (Last Updated 10/08/18 @ 12:57 by Smita Obregon) Daughter Multiple sclerosis Father Heart disease Hypertension CAD (coronary artery disease) Multiple sclerosis Grandfather Heart disease Uncle Heart disease Aunt Cancer Sister Colon cancer Family History: Reports: No pertinent history Review of Systems General: Reports: Malaise. Denies: Chills, Fever, Sweats Eyes: Denies: Visual changes - bilaterally, Diplopia ENT: Denies: Rhinorrhea, Sore throat Cardiovascular: Denies: Chest pain, Palpitations Respiratory: Denies: Dyspnea, Cough, Dyspnea on exertion Gastrointestinal: Reports: Abdominal pain, Nausea, Vomiting, Diarrhea. Denies: Hematochezia Genitourinary: Denies: Dysuria, Hematuria, Frequency Musculoskeletal: Reports: Back pain. Denies: Swelling, Extremity Pain Skin: Denies: Rash, Wounds Neurological: Denies: Headache, Weakness, Numbness Physical Exam Vital Signs/Narrative: Vital Signs Temp Pulse Resp BP Pulse Ox 11/03/18 20:50 84 16 144/105 H 97 11/03/18 20:46 99.9 F H 81 16 144/105 H 96 Inital Vital Signs reviewed: Yes General: Well nourished, Well developed, No Acute Distress Head: Normocephalic, Atraumatic Eyes: Perrl, EOMI ENT: Moist mucous membranes, No rhinorrhea Neck: Supple, Nontender Cardiovascular: Regular rate, Regular rhythm, No murmurs Respiratory: No distress, CTA bilaterally, Chest nontender Abdomen: Soft, Nondistended, Normal bowel sounds, No masses, Tender - epigastric, mild-mod tend. Negative for: Guarding, Rebound tenderness, Pulsati le mass Rectal: Deferred - refused Back: Nontender, Normal Inspection. Negative for: CVA tenderness Extremities: Nontender, No edema Skin: Normal color, No rash, No Trauma Neurological: Alert, Oriented x3, Cranial nerves II-XII grossly intact, Normal Strength, Normal Sensation Psychological: Normal affect, Normal Mood Diagnostic/Tx/Re-eval Chest X-Ray - ED: 1 View, Read by ED Physician, Normal, Bony Structures, No Acute Disease, - - no free air under diaphragm Clinical Impression(s) from Imaging Studies Chest X-Ray 11/04/18 00:50 IMPRESSION: Normal. at 0121 Reported and signed by: Johny Grover MD Electronically Signed: Johny Grover MD at 1:20 EDT Tel , Service support , 11/04/18 00:50 Chest 1 View (Portable) [RAD] Stat Laboratory Results 11/03/18 11/03/18 11/03/18 21:37 21:37 21:37 WBC 12.7 H RBC 4.78 Hgb 15.1 H Hct 44.2 MCV 92.5 MCH 31.6 MCHC 34.2 RDW Std Deviation 46.6 H RDW Coeff of Ross 13.7 Plt Count 254 MPV 9.2 Immature Gran % (Auto) 0.500 Neut % (Auto) 62.9 Lymph % (Auto) 28.4 Granite % (Auto) 5.3 Eos % (Auto) 2.4 Baso % (Auto) 0.5 Absolute Neuts (auto) 8.0 H Absolute Lymphs (auto) 3.62 Nucleated RBC % 0 Sodium Cancelled Potassium Cancelled Chloride Cancelled Carbon Dioxide Cancelled Anion Gap Cancelled BUN Cancelled Creatinine Cancelled Estim Creat Clear Calc Cancelled Est GFR (MDRD) Af Amer Cancelled Est GFR (MDRD) Non-Af Cancelled BUN/Creatinine Ratio Cancelled Glucose Cancelled Calcium Cancelled Total Bilirubin Cancelled AST Cancelled ALT Cancelled Alkaline Phosphatase Cancelled Total Protein Cancelled Albumin Cancelled Globulin Cancelled Albumin/Globulin Ratio Cancelled Lipase Cancelled Urine Color Yellow Urine Clarity Clear Urine pH 6.0 Ur Specific [place] 1.010 Urine Protein Negative Urine Glucose (UA) Normal Urine Ketones Negative Urine Occult Blood Negative Urine Nitrite Negative Urine Bilirubin Negative Urine Urobilinogen Normal Ur Leukocyte Esterase Negative Urine RBC 0-5 SEEN Urine WBC 0-5 SEEN Ur Squamous Epith Cells 0 SEEN Urine Bacteria 0 SEEN Urine Mucus 0 SEEN 11/03/18 11/04/18 23:10 00:08 WBC RBC Hgb Hct MCV MCH MCHC RDW Std Deviation RDW Coeff of Ross Plt Count MPV Immature Gran % (Auto) Neut % (Auto) Lymph % (Auto) Granite % (Auto) Eos % (Auto) Baso % (Auto) Absolute Neuts (auto) Absolute Lymphs (auto) Nucleated RBC % Sodium Cancelled 147 H Potassium Cancelled 3.7 Chloride Cancelled 116 H Carbon Dioxide Cancelled 26.0 Anion Gap Cancelled 5 BUN Cancelled 14 Creatinine Cancelled 0.81 Estim Creat Clear Calc Cancelled 63.53 Est GFR (MDRD) Af Amer Cancelled 95 Est GFR (MDRD) Non-Af Cancelled 79 BUN/Creatinine Ratio Cancelled 17.3 Glucose Cancelled 87 Calcium Cancelled 8.8 Total Bilirubin Cancelled 0.20 AST Cancelled 22 ALT Cancelled 53 Alkaline Phosphatase Cancelled 103 Total Protein Cancelled 7.0 Albumin Cancelled 3.3 Globulin Cancelled 3.7 Albumin/Globulin Ratio Cancelled 0.9 Lipase Cancelled 172 Urine Color Urine Clarity Urine pH Ur Specific [place] Urine Protein Urine Glucose (UA) Urine Ketones Urine Occult Blood Urine Nitrite Urine Bilirubin Urine Urobilinogen Ur Leukocyte Esterase Urine RBC Urine WBC Ur Squamous Epith Cells Urine Bacteria Urine Mucus - Medical Decision Making Given her negative CT scan 2 days ago, and her persistent pain especially right after she eats, this is consistent with intraluminal disease. I discussed this with the patient, as well as my reasoning therefore ordering GI cocktail, IV fluids, antiemetic Zofran, and Bentyl. She became very upset at nursing when they came with the GI cocktail, asking for narcotics. I advised her that I was not advising or ordering narcotics for her because they can worsen pain related to intraluminal disease. She wanted a dose anyway because she states that helped 2 days ago, which according to the physician's documentation, it did not help, after getting it today she states that her pain worsened. She did eventually take a GI cocktail, she had transient only mild improvement of her pain, then it worsened. Her initial chemistry panel clotted and we had to redraw it. However when it returned every result was so abnormal that I had it redrawn because I thought it was an error. The repeat result was as expected, similar to her usual findings with very mild hypernatremia which she has had in the past, along with hyperchloremia. Prior result was likely mixed with saline. The sodium and chloride were high with all of the other results low caused by dilution. She has an appointment in approximately 30 hours with gastroenterology. I do not think she should miss this, as I think she needs a nonemergent EGD. She will be discharged home. I did obtain a portable chest x- ray to verify that she did not have any free air, and she does not. She is upset that she is being discharged and wants to be admitted. She has no medical indication for admission at this time. I asked her for nonnarcotic suggestions of what she has had for this in the past month since she started having this pain that has helped her. She had no other suggestions. ED Disposition - Plan for ED Patient: Disposition: Home or Assisted Living Diagnosis: Epigastric abdominal pain, Vomiting and diarrhea Instructions: ABDOMINAL PAIN, Unknown Cause, (Female) Referrals: Alan Mack MD [NON-STAFF] - Keep Vitaliy appointment (on Saturday (tomorrow))
[2018-11-03 21:44] LABS: Absolute Lymphocyte Count 3.62 X10^3/uL (0.83-4.51); Basophil# 0.06 X10^3/uL; Basophil% 0.5 % (0-1); Eosinophil# 0.31 X10^3/uL; Eosinophils% 2.4 % (0-5); Hematocrit 44.2 % (37-47); Hemoglobin 15.1 g/dL (12.0-15.0); Lymphocyte # 3.62 X10^3/ul (4.0); Lymphocyte % 28.4 % (19-41); Mean Corp Hgb Conc 34.2 g/dL (32-36); Mean Corpuscular Hgb 31.6 pg (27.0-32.0); Mean Corpuscular Volume 92.5 fL (81-99); Mean Platelet Vol. 9.2 fl (6.2-12.0); Monocyte# 0.68 X10^3/uL; Monocyte% 5.3 % (0-10); NRBC Flagged by Analyzer 0 % (0-5); Neutrophil # 7.99 X10^3/uL (2.7-7.7); Neutrophil % 62.9 % (47-70); Platelet Count 254 K/mm3 (150-450); RBC Distribution Width CV 13.7 % (11.6-14.6); RBC Distribution Width SD 46.6 fl (35.1-43.9); Red Blood Count 4.78 M/mm3 (4.2-5.4); White Blood Count 12.7 K/mm3 (4.4-11.0)
[2018-11-03 21:50] LABS: Bacteria 0 SEEN /hpf (None Seen); Mucous, Urine 0 SEEN /hpf (<or=2+); Squamous Epithelial Cells - UA 0 SEEN /hpf (5-10)
[2018-11-03] MEDS: 0.9% Normal Saline 1,000 ML 999 ML IV (21:52)
[2018-11-03] MEDS: Ondansetron 4 MG/2 ML Vial IV (21:52)
[2018-11-03] MEDS: Dicyclomine 20 MG/2 ML Vial IM (21:52)
[2018-11-03 21:57] LABS: Color, Urine Yellow (Yellow); Glucose, Dipstick Normal (Normal); Ketone-Dipstick Negative (Negative); Leukocyte Esterase-Dipstick Negative /ul (Negative); Nitrite-Dipstick Negative (Negative); Occult Blood-Urine Negative /ul (Negative); Protein-Dipstick Negative (Negative); Urine Bilirubin Dipstick Negative (Negative); Urine Clarity Clear (Clear); Urine Urobilinogen Normal (Normal)
[2018-11-03 22:21] LABS: Red Blood Cells-Urine 0-5 SEEN /hpf (0-5); White Blood Cells 0-5 SEEN /hpf (0-5)
--- NOTE | 2018-11-03 22:22 | ED.RN ---
THIS NURSE INTO ENSURE THE ZOFRAN WAS EFFECTIVE PRIOR TO GIVING PO MEDS. PT STATES A GI COCKTAIL IS NOT GOING TO HELP THIS PAIN YOU BITCH. THIS NURSE INFORMED THE PT THAT I WOULD NOTIFY THE DR SHE IS REQUESTING DIFFERENT MEDICATION AND REFUSING THE GI COCKTAIL
[2018-11-03] MEDS: proMETHazine 25 MG/ML Syringe 12.5 MG IV (23:13)
[2018-11-03] MEDS: Morphine 4 MG/ML Syringe IV (23:13)
[2018-11-03 23:15] VITALS: BP 181/109; PULSE 78; RESP 18; O2SAT 93
[2018-11-03 23:17] VITALS: BP 181/109; PULSE 74; RESP 18; TEMP 37.3; O2SAT 95
--- NOTE | 2018-11-03 23:42 | ED.RN ---
dr amado notified of ca 6.1. no orders given at this time
[2018-11-04] MEDS: Mag Hydrox/Al Hydrox/Simeth 30 ML UDC PO (00:41)
[2018-11-04 00:43] VITALS: BP 179/98; PULSE 79; RESP 20; TEMP 37.2; O2SAT 95
--- NOTE | 2018-11-04 00:50 | RAD_ITS ---
HISTORY: RLQ pain, n/v, r/o free air EXAM: XR Chest 1 View: COMPARISON: July 21, 2018 FINDINGS: # of images incl. paperwork: 1 Dual-lead left chest wall, left subclavian approach cardiac pacer is unchanged Lungs are clear. Heart is not enlarged. Bones are normal. Pulmonary vascularity is distinct. No effusions. RAD/Chest 1 View (Portable) IMPRESSION: Normal. at 0121 Reported and signed by: Johny Grover MD Electronically Signed: Johny Grover MD at 1:20 EDT Tel , Service support ,
[2018-11-04 00:56] LABS: ALB/GLOB Ratio 0.9 RATIO (0.9-2.4); AST(SGOT) 22 U/L (15-37); Alanine Aminotransfer ALT/SGPT 53 U/L (13-56); Albumin, Serum 3.3 g/dL (3.2-5.0); Alkaline Phosphatase 103 U/L (45-117); Anion Gap 5 (5-15); BUN 14 mg/dL (7-18); BUN/Creat Ratio 17.3 RATIO (10-20); Calcium,Total 8.8 mg/dL (8.5-10.1); Chloride 116 mmol/L (98-107); Creatinine, Serum 0.81 mg/dL (0.55-1.02); EST Glomerular Filtration Rate 79 mL/min (>60); Est Glom Filt Rate - Afr Amer 95 mL/min (>60); Estimated Creatinine Clearance 63.53 ml/min; Globulin 3.7 g/dL (2.2-4.2); Glucose 87 mg/dL (74-106); Potassium 3.7 mmol/L (3.5-5.1); Sodium Level 147 mmol/L (136-145)
[2018-11-04 01:01] LABS: Lipase 172 U/L (73-393)
== END 2018-11-04 01:27 | disposition home or self-care (01) ==
PROVIDERS: Emergency Provider Emergency Medicine; Family Provider Internal Medicine; PCP Internal Medicine
DX: R10.13 Epigastric pain (principal); R11.2 Nausea with vomiting, unspecified; E87.0 Hyperosmolality and hypernatremia; E87.8 Other disorders of electrolyte and fluid balance, not elsewhere classified; R19.7 Diarrhea, unspecified; K92.1 Melena; M54.5 Low back pain; G89.4 Chronic pain syndrome; I10 Essential (primary) hypertension; E78.49 Other hyperlipidemia; I49.5 Sick sinus syndrome; G62.9 Polyneuropathy, unspecified; E03.9 Hypothyroidism, unspecified; G47.33 Obstructive sleep apnea (adult) (pediatric); K21.9 Gastro-esophageal reflux disease without esophagitis; F43.10 Post-traumatic stress disorder, unspecified; F32.9 Major depressive disorder, single episode, unspecified; F41.9 Anxiety disorder, unspecified; Z88.6 Allergy status to analgesic agent; Z88.1 Allergy status to other antibiotic agents; Z79.899 Other long term (current) drug therapy; Z95.0 Presence of cardiac pacemaker; Z87.891 Personal history of nicotine dependence; Z90.49 Acquired absence of other specified parts of digestive tract
CPT/HCPCS: 36415; 71045; 80053; 81001; 83690; 85025; 96361; 96372; 96374; 96375; 99283; J7030; A4216; J2405

== ENCOUNTER → 2018-11-05 11:07 | Outpatient (CLI) | payer MEDICARE, MEDICAID, SELFPAY ==
[2018-11-03 20:46] VITALS: BMI 31.4
[2018-11-05 13:14] LABS: AST(SGOT) 27 U/L (15-37); Alanine Aminotransfer ALT/SGPT 58 U/L (13-56); Albumin, Serum 3.7 g/dL (3.2-5.0); Alkaline Phosphatase 106 U/L (45-117); Bilirubin, Direct 0.06 mg/dL (0.00-0.30); CRP < 2.90 mg/L (0.0-3.0); Lipase 106 U/L (73-393); Protein, Total 7.7 g/dL (6.4-8.2)
== END ==
PROVIDERS: Family Provider Internal Medicine; PCP Internal Medicine; Referring Provider Internal Medicine Gastroenterology; Visit Provider Internal Medicine Gastroenterology
DX: R10.9 Unspecified abdominal pain (principal)
CPT/HCPCS: 36415; 80076; 83690; 86140

== ENCOUNTER → 2018-12-10 12:46 | Outpatient (CLI) | payer MEDICARE, MEDICAID, SELFPAY ==
[2018-12-09 09:58] VITALS: BMI 30.3
[2018-12-10 14:53] LABS: AST(SGOT) 15 U/L (15-37); Alanine Aminotransfer ALT/SGPT 17 U/L (13-56); Albumin, Serum 3.4 g/dL (3.2-5.0); Alkaline Phosphatase 101 U/L (45-117); Bilirubin, Direct < 0.05 mg/dL (0.00-0.30); Globulin 3.8 g/dL (2.2-4.2); Lipase 84 U/L (73-393); Protein, Total 7.2 g/dL (6.4-8.2)
== END ==
PROVIDERS: Family Provider Internal Medicine; PCP Internal Medicine; Referring Provider Internal Medicine Gastroenterology; Visit Provider Internal Medicine Gastroenterology
DX: R10.9 Unspecified abdominal pain (principal)
CPT/HCPCS: 36415; 80076; 83690

== ENCOUNTER → 2018-12-31 10:40 | Outpatient (CLI) | payer MEDICARE, MEDICAID, SELFPAY ==
[2018-12-09 09:58] VITALS: BMI 30.3
[2018-12-31 15:00] LABS: T4 Free Direct 1.05 ng/dL (0.76-1.46); Thyroid Stim Hormone (TSH) 1.37 uIU/mL (0.358-3.74)
== END ==
PROVIDERS: Family Provider Internal Medicine; PCP Internal Medicine; Visit Provider Internal Medicine
DX: I10 Essential (primary) hypertension (principal); E55.9 Vitamin D deficiency, unspecified; Z13.29 Encounter for screening for other suspected endocrine disorder
CPT/HCPCS: 36415; 82306; 84439; 84443

== ENCOUNTER → 2019-01-22 13:58 | Outpatient (CLI) | payer MEDICARE, MEDICAID, SELFPAY ==
[2019-01-15 14:18] VITALS: BMI 29.0
--- NOTE | 2019-01-22 13:59 | RAD_ITS ---
STUDY: X-RAY - PELVIS AND LEFT HIP REASON FOR EXAM: Female, 53 years old. Pain. TECHNIQUE: 3 views of the pelvis and hip. COMPARISON: None. FINDINGS: There is a non-specific bowel gas pattern. Normal visualized soft tissue structures. There are postoperative changes of posterior fusion and laminectomy at L4-L5. There is narrowing with cortical sclerosis and osteophyte formation of the sacroiliac joint consistent with degenerative osteoarthritic changes, left more than right. Normal bilateral superior and inferior pubic rami. There are mild degenerative changes of the pubic symphysis with articular narrowing and sclerosis. Normal bilateral ischial tuberosities. Normal visualized femoral head. There is osteoarthritic spur formation of the acetabular rim. There is mild articular joint space narrowing of the hip. RAD/HIP, UNI W/ Pelvis 2-3 Views IMPRESSION: Mild degenerative disease as described above. No acute fracture or subluxation. Electronically Signed: Jerri Gould MD at 2:55 EST , Service support ,
== END ==
PROVIDERS: Family Provider Internal Medicine; PCP Internal Medicine; Referring Provider Internal Medicine; Visit Provider Internal Medicine
DX: M25.551 Pain in right hip (principal)
CPT/HCPCS: 73502

== ENCOUNTER 2019-03-30 11:46 | Emergency (ER) | payer MEDICARE, MEDICAID, SELFPAY ==
[2019-01-15 14:18] VITALS: BMI 29.0
[2019-03-30 11:47] VITALS: BP 133/82; PULSE 79; RESP 17; TEMP 36.9; O2SAT 98; BMI 29.2
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
[2019-03-30 14:43] VITALS: PULSE 72; RESP 18; O2SAT 97
== END 2019-03-30 14:44 | disposition home or self-care (01) ==
PROVIDERS: Emergency Provider Emergency Medicine; PCP Internal Medicine
DX: S29.012A Strain of muscle and tendon of back wall of thorax, initial encounter (principal); M54.2 Cervicalgia; R07.9 Chest pain, unspecified; R51 Headache; V43.52XA Car driver injured in collision with other type car in traffic accident, initial encounter; Y93.9 Activity, unspecified; Y92.9 Unspecified place or not applicable; Y99.9 Unspecified external cause status; R05 Cough; I10 Essential (primary) hypertension; E03.9 Hypothyroidism, unspecified; F32.9 Major depressive disorder, single episode, unspecified; Z79.899 Other long term (current) drug therapy
CPT/HCPCS: 72072; 99282

== ENCOUNTER → 2019-05-25 12:30 | Outpatient (CLI) | payer MEDICARE, MEDICAID, SELFPAY ==
[2019-05-14 07:53] VITALS: BMI 30.6
--- NOTE | 2019-05-25 12:31 | STE_ITS ---
Reason For Study: CHEST PAIN Stress Results Protocol: Dobutamine Stress Echo Maximum Predicted HR: 167 bpm Target HR: 142 bpm % Maximum Predicted HR: 84 % DurationHeart Rate Stage (mm:ss) (bpm) BP Dose Comment BASELINE 97 136/79 STAGE 1 3:00 112 141/8710.00 STAGE 2 3:00 139 145/8520.00 STAGE 3 1:18 141 144/7930.00CHEST PAIN, JAW PAIN, RESTLESS, ARM PAIN, NAUSEATED RECOVERY 93 144/88 Stress Duration: 7:18 mm:ss Maximum Stress HR: 141 bpm Baseline Echocardiogram Findings Stress Echo Wall motion Data Resting WM Intermediate WM Stress WM Interpretation Summary Stress protocol: Resting EKG demonstrates normal sinus rhythm with a rate of 90 bpm normal intervals are noted. Dobutamine was infused at 10 mcg/kg/min increasing to a peak of 30 mcg/kg/min. The patient maintained sinus rhythm throughout the recording. At rest there were no ST or T wave changes noted suggest ischemia at peak infusion nonspecific ST-T wave changes were noted. No clinical angina was noted the test was terminated due to attainment of target heart rate. Patient did experience some chest discomfort and jaw pain. The resting blood pressure was 136/79 with a peak blood pressure 144/79 mmHg. Stress echocardiogram. Resting echocardiogram demonstrated overall preserved left ventricular systolic function estimated at 55%. No wall motion abnormalities were noted. The peak ejection fraction was noted to be 70% with no wall motion abnormalities noted. The above do not denote any evidence of ischemia. The above testing comparison to the test from January 2018 essentially the same. Conclusion: Normal dobutamine Stress echo Ordering Physician: Gautam Laurent Referring Physician: Gautam Laurent Performed By: Martha Odell, LU, RVT
== END ==
PROVIDERS: PCP Internal Medicine; Referring Provider Nurse Practitioner Family; Visit Provider Nurse Practitioner Family
DX: R07.9 Chest pain, unspecified (principal); I10 Essential (primary) hypertension; I49.5 Sick sinus syndrome; R00.2 Palpitations; R53.83 Other fatigue
CPT/HCPCS: 93017; 93350; J7040; Q9957; A4216

== ENCOUNTER 2019-05-27 20:04 | Emergency (ER) | payer MEDICARE, MEDICAID, SELFPAY ==
[2019-05-14 07:53] VITALS: BMI 30.6
[2019-05-27 20:05] VITALS: BP 125/89; PULSE 89; RESP 16; TEMP 37.2; O2SAT 95; BMI 29.2
--- NOTE | 2019-05-27 20:22 | ED.DCSUM_ITS ---
- ER Visit Summary Date of Service: 05/27/19 Chief Complaint: Depressed History of Present Illness: The patient is a 53 F history of PTSD prior neuroendocrine tremor and sick sinus syndrome with a pacemaker. Patient states that she was talking her daughter today. And then the police showed up at her house and brought her in. She denies being suicidal. She admits to drinking tonight. She has had prior attempted overdose in the past. I spoke to the police captain senior he had called the daughter daughter told him not to leave the house. Every time she drinks she ends up getting herself in trouble and either overdoses or tries to commit suicide. Physical Examination: Middle-aged female no acute distress vital signs stable afebrile. She is tearful. H EENT exam unremarkable atraumatic. Pupils round reactive light. Neck nontender. Lungs clear to auscultation bilaterally. H eart regular rhythm no murmur. Abdomen is soft and nontender. Extremities moves all 4. Calves are nontender. No edema. No cords. No signs of trauma. Neurologically she is awake and alert with no focal motor deficits. Test Results: White count of 15. Hemoglobin 15. No bands. Electrolytes unremarkable normal creatinine and gap. Serum test negative. Tox scr een pending. Alcohol 130 consistent with acute alcohol intoxication. Due to the intoxication the patient's formal psychiatric evaluation will be delayed until she is no longer intoxicated. Emergency Department Course and Treatment: Undergo ED mental health evaluation. leadite worker is going to call her daughter and get the daughters understanding of what was going on. Treatment Plan: Patient will sleep in the emergency department overnight. To be reevaluated when the alcohol level is below legal intoxication. Disposition: [] Impression: Acute depression Rule out suicidal ideation History of PTSD History of prior overdoses Acute alcohol intoxication This note was generated with [employer] software. It may contain incorrect words, spelling, and punctuation that were not noted in review of the chart prior to signing ED Disposition - Plan for ED Patient: Referrals: Charla Wadsworth MD [Primary Care Provider] -
[2019-05-27 20:34] LABS: Absolute Lymphocyte Count 5.15 X10^3/uL (0.83-4.51); Absolute Neutrophil Count 9.4 X10^3/uL (2.0-7.7); Basophil# 0.08 X10^3/uL; Basophil% 0.5 % (0-1); Eosinophil# 0.23 X10^3/uL; Eosinophils% 1.5 % (0-5); Hematocrit 46.9 % (37-47); Hemoglobin 15.9 g/dL (12.0-15.0); Lymphocyte # 5.15 X10^3/ul (4.0); Lymphocyte % 32.7 % (19-41); Mean Corp Hgb Conc 33.9 g/dL (32-36); Mean Corpuscular Hgb 31.5 pg (27.0-32.0); Mean Corpuscular Volume 93.1 fL (81-99); Mean Platelet Vol. 8.8 fl (6.2-12.0); Monocyte# 0.79 X10^3/uL; NRBC Flagged by Analyzer 0 % (0-5); Neutrophil # 9.35 X10^3/uL (2.7-7.7); Neutrophil % 59.3 % (47-70); POSITIVE DIFFERENTIAL YES; Platelet Count 286 K/mm3 (150-450); RBC Distribution Width SD 47.7 fl (35.1-43.9); Red Blood Count 5.04 M/mm3 (4.2-5.4); White Blood Count 15.8 K/mm3 (4.4-11.0)
[2019-05-27 20:36] LABS: Differential Indicated SCAN CRITERIA MET
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
[2019-05-27 21:01] LABS: Differential Comment SCANNED
[2019-05-27 21:02] LABS: Anion Gap 7 (5-15); BUN 20 mg/dL (7-18); BUN/Creat Ratio 20.9 RATIO (10-20); Calcium,Total 9.2 mg/dL (8.5-10.1); Chloride 109 mmol/L (98-107); Creatinine, Serum 0.96 mg/dL (0.55-1.02); EST Glomerular Filtration Rate 65 mL/min (>60); Est Glom Filt Rate - Afr Amer 78 mL/min (>60); Glucose 109 mg/dL (74-106); Potassium 3.5 mmol/L (3.5-5.1); Sodium Level 141 mmol/L (136-145)
[2019-05-27 21:04] LABS: Internal QC Validated? YES +Cl - CLEAR BKGD
[2019-05-27] MEDS: proMETHazine 25 MG Tablet PO (21:14)
[2019-05-27 21:25] LABS: Pregnancy, Serum, hCG Quali. NEGATIVE Negative
--- NOTE | 2019-05-27 21:27 | CM.ED ---
Social Work Due to end of social work business day and still waiting medical clearance, crisis to follow up with patient if further evaluation is continued to be recommended by medical team. Medical team updated. Keegan Day MSW, JUSTIN
[2019-05-27 21:37] VITALS: RESP 18
[2019-05-27] MEDS: Acetaminophen 500 MG Tablet 1000 MG PO (21:41)
[2019-05-27 21:58] LABS: Amphetamine Urine VISTA NEGATIVE (<1000 ng/mL); Barbiturate Urine VISTA NEGATIVE (< 200 ng/mL); Benzodiazepine Urine VISTA NEGATIVE (< 200 ng/mL); Cocaine Urine VISTA NEGATIVE (< 300 ng/mL); Ecstacy Urine VISTA NEGATIVE (< 500 ng/mL); Methadone Urine VISTA NEGATIVE (< 300 ng/mL); PCP Urine VISTA NEGATIVE (< 25 ng/mL); THC Urine VISTA NEGATIVE (< 50 ng/mL); Vista UDS pH Range 6
[2019-05-27 22:00] VITALS: RESP 18
--- NOTE | 2019-05-27 22:14 | ED.RN ---
PT IS YELLING AT STAFF, NO ONE CARES ABOUT THE CRAZY PERSON. THIS NURSE ENTERED ROOM AND ASKED PT WHAT WAS WRONG PT REPORTED I'M FUCKING LOSING IT, THEY ARE GOING TO HURT ME THIS NURSE EXPLAINED TO PT. THAT NO ONE IS GOING TO HARM HER AND NOTE LEFT FOR DR. RAMOS.
[2019-05-28 00:19] VITALS: BP 128/87; PULSE 81; RESP 16; O2SAT 97
--- NOTE | 2019-05-28 00:27 | ED.DEP ---
ED Disposition - Plan for ED Patient: Disposition: Home or Assisted Living Diagnosis: Depression Instructions: Depression Referrals: Charla Wadsworth MD [Primary Care Provider] - Counseling,Center [GROUP OF PHYSICIANS] -
== END 2019-05-28 00:33 | disposition home or self-care (01) ==
PROVIDERS: Emergency Provider Emergency Medicine; PCP Internal Medicine
DX: F32.9 Major depressive disorder, single episode, unspecified (principal); F10.129 Alcohol abuse with intoxication, unspecified; Y90.9 Presence of alcohol in blood, level not specified; F43.10 Post-traumatic stress disorder, unspecified; I49.5 Sick sinus syndrome; Z91.5 Personal history of self-harm; Z95.0 Presence of cardiac pacemaker; Z79.899 Other long term (current) drug therapy; Z72.0 Tobacco use
CPT/HCPCS: 36415; 80048; 80307; 80320; 84703; 85025; 99285; G0480

== ENCOUNTER → 2019-06-30 13:26 | Outpatient (CLI) | payer MEDICARE, MEDICAID, SELFPAY ==
[2019-06-30 13:14] VITALS: BMI 29.2
--- NOTE | 2019-06-30 13:28 | RAD_ITS ---
STUDY: X-RAY - LUMBAR SPINE REASON FOR EXAM: Female, 53 years old. Low back pain into sacrum -- surgery 3 1/2 years ago TECHNIQUE: 5 view(s) of the lumbar spine were obtained including oblique views. COMPARISON: Comparison is made with prior study dated January 18, 2017. FINDINGS: Normal lumbar lordosis. There is no substantial scoliosis. There is a normal alignment of the vertebrae. The patient is status post laminectomy and fusion at the L4-L5 level. This space narrowing at the L3-L4 L4-L5 and L5-S1 levels. There has been essentially no change. Prior cholecystectomy. Sutures are seen in the left upper quadrant. RAD/L/S Spine Min 4 Views IMPRESSION: Status post laminectomy at the L4-L5 level with fusion. There has been no change. Electronically Signed: Ming Roberts, at 14:06 EDT , Service support ,
== END ==
PROVIDERS: PCP Internal Medicine; Referring Provider Physician Assistant Surgical; Visit Provider Physician Assistant Surgical
DX: S39.012A Strain of muscle, fascia and tendon of lower back, initial encounter (principal); X58.XXXA Exposure to other specified factors, initial encounter; Y93.9 Activity, unspecified; Y99.9 Unspecified external cause status
CPT/HCPCS: 72110

== ENCOUNTER 2019-06-30 14:22 | Emergency (ER) | payer MEDICARE, MEDICAID, SELFPAY ==
[2019-06-30 13:30] VITALS: BMI 29.0
[2019-06-30 14:23] VITALS: BP 127/83; PULSE 55; RESP 18; TEMP 36.4; O2SAT 98; BMI 29.2
--- NOTE | 2019-06-30 14:37 | CT_ITS ---
STUDY: CT LUMBAR SPINE WITHOUT CONTRAST REASON FOR EXAM: Female, 53 years old. FALL 2 DAYS AGO, BACK PAIN. RADIATION DOSAGE (If Supplied By Facility): CTDIvol = ( 21.94 ) mGy, DLP = ( 785.62 ) mGycm TECHNIQUE: The patient was scanned in a multi detector CT scanner. High resolution transaxial imaging was performed. Images were obtained from T12 to S1 level. Sagittal and coronal images were reconstructed. Individualized dose optimization techniques were used for this CT. COMPARISON: Comparison is made with prior study dated October 05, 2007. FINDINGS: Normal lumbar lordosis. There is no substantial scoliosis. Normal vertebrae of the lumbar spine. The patient is status post laminectomy and fusion with interpedicular screw fixation at the L4-L5 level. L1-2: Normal endplates. Normal disc height and morphology. Normal bilateral facet joints. Normal central canal and bilateral lateral recesses. Normal bilateral intervertebral neural foramina. L2-3: Normal endplates. Normal disc height and morphology. Normal bilateral facet joints. Normal central canal and bilateral lateral recesses. Normal bilateral intervertebral neural foramina. L3-4: Normal endplates. Normal disc height and morphology. Normal bilateral facet joints. Normal central canal and bilateral lateral recesses. Normal bilateral intervertebral neural foramina. L4-5: Status post laminectomy and fusion. No evidence of spinal stenosis. No fracture is seen. L5-S1: Normal endplates. Normal disc height and morphology. Normal bilateral facet joints. Normal central canal and bilateral lateral recesses. Normal bilateral intervertebral neural foramina. Normal visualized paraspinous soft tissue structures. CT/Spine Lumbar without Contrast IMPRESSION: Status post fusion at the L4-L5 level. There has been no significant change. Electronically Signed: Ming Roberts, at 15:49 EDT , Service support ,
--- NOTE | 2019-06-30 14:39 | ED.VISSUMM ---
- ER Visit Summary Date of Service: 06/30/19 Chief Complaint: Low back pain status post fall History of Present Illness: The patient is a 53 F patient has low back pain after a fall. She states that 4 days ago she was on a small stool when she fell off and hit her lower back. Ever since and she is had pain in the lumbar spine. It is radiating down the left leg. Is worse with movement. She took a friend's Percocet which did not help. She has had a history of an L4-L5 fusion. She denies any bowel or bladder incontinence. She went to an urgent care today and had x-rays which were unremarkable for any acute injury. They told her that she needed an MRI but she has a pacemaker and this is unable to be performed. Physical Examination: Vital signs reviewed. HEENT exam unremarkable. Heart is regular rate and rhythm without murmurs. Lungs are clear to auscultation. Abdomen is soft and nontender. Her back is diffusely tender in the lumbar region. Extremities reveal no edema. Skin exam normal. Neurologic exam normal, including reflexes. Test Results: CT scan of the lumbar spine reveals no acute findings. Her fusion is intact and unremarkable Emergency Department Course and Treatment: Patient was given oxycodone here. I see no acute findings for her pain at this time. I will prescribe her Lidoderm patches. She will continue her home medications. I do not feel narcotics would be prudent at this time. She will need to call her PCP for further evaluation Treatment Plan: [] Disposition: Discharge Impression: Lumbar contusion This note was generated with [employer] dictation software. It may contain incorrect words, spelling, and punctuation that were not noted in review of the chart prior to signing ED Disposition - Plan for ED Patient: Disposition: Home or Assisted Living Instructions: ED Contusion Back Prescriptions: cycloBENZAPRine HCl [Flexeril] 10 mg PO TID PRN #20 tab PRN Reason: Muscle Spasm Transmission Status: Pending to [id number] Lidocaine [Lidoderm Patch] 1 patch TOPICAL DAILY #10 patch Transmission Status: Pending to [id number] Referrals: Charla Wadsworth MD [Primary Care Provider] -
[2019-06-30] MEDS: oxyCODONE 5 MG Tablet PO (15:00)
[2019-06-30 15:01] VITALS: PULSE 61; RESP 15; O2SAT 97
[2019-06-30 16:14] VITALS: RESP 18
== END 2019-06-30 16:16 | disposition home or self-care (01) ==
PROVIDERS: Emergency Provider Emergency Medicine; PCP Internal Medicine
DX: S30.0XXA Contusion of lower back and pelvis, initial encounter (principal); S39.012A Strain of muscle, fascia and tendon of lower back, initial encounter; W08.XXXA Fall from other furniture, initial encounter; Y93.9 Activity, unspecified; Y92.9 Unspecified place or not applicable; Y99.9 Unspecified external cause status; I10 Essential (primary) hypertension; F32.9 Major depressive disorder, single episode, unspecified; F41.9 Anxiety disorder, unspecified; Z72.0 Tobacco use; Z79.899 Other long term (current) drug therapy; Z95.0 Presence of cardiac pacemaker
CPT/HCPCS: 72110; 72131; 99282

== ENCOUNTER 2019-07-01 22:38 | Emergency (ER) | payer MEDICARE, MEDICAID, SELFPAY ==
[2019-06-30 14:23] VITALS: BMI 29.2
[2019-07-01 22:38] VITALS: BP 136/96; PULSE 85; RESP 20; TEMP 37.4; O2SAT 98; BMI 31.6
--- NOTE | 2019-07-01 22:59 | ED.VISSUMM ---
- ER Visit Summary Date of Service: 07/01/19 Chief Complaint: [Contusion to back] History of Present Illness: The patient is a 53 F [presents to the emergency department with an injury to her back that occurred 5 days ago. Patient states that she was on a step stool helping] a friend hanging blinds when she tried to step off a step stool and 1 of her feet slid and she fell back onto her back. Patient was seen at urgent care yesterday where she had x-rays and then referred to the emergency department where she had a CT scan of her back that did not show anything acute. Patient has had prior L4-5 lumbar fusion 3 years ago at the [facility]. Patient complains of an ache in her left leg that is somewhat continuous. The ache does not feel like sciatica which she has had before. She denies any weakness in extremities. She denies any change in bowel or bladder function. She denies urinary symptoms. She denies recent illness. Patient has been taken Tylenol but not helping her pain. Patient used to be in pain management with Dr. Alexander but no longer is. She used to get spinal injections. Patient also has a pacemaker due to history of sick sinus syndrome and states she cannot have MRIs. Physical Examination: [HEENT-PERRLA, EOMI. Cranial nerves II through XII grossly intact. TMs clear. Mucous membranes moist. No adenopathy. Cardiovascular-regular rate and rhythm without murmur or ectopy Lungs-clear to auscultation, chest wall stable without crepitus or subcu emphysema Abdomen-normoactive bowel sounds, soft, nontender, no rebound or rigidity, no peritoneal signs. Back exam-patient has diffuse tenderness over the lumbar spine. There is no ecchymosis or bruising noted there is no erythema or warmth. Patient has negative straight leg raises. Deep tendon reflexes are plus 2 out of 4 bilaterally at the patella Achilles. Patient has normal 5 extension. Extremities-intact ?4, normal range of motion, normal pulses, atraumatic] Test Results: [None indicated] Emergency Department Course and Treatment: [Patient was given a dose of Dilaudid 1 mg IM as well as Zofran 4 mg IM.] Treatment Plan: [We will be given a prescription for [place] and advised to follow-up with her primary care physician and pain management doctor within the next 3 to 5 days.] Disposition: [Discharged home in stable condition] Impression: [Back contusion] This note was generated with [employer] dictation software. It may contain incorrect words, spelling, and punctuation that were not noted in review of the chart prior to signing ED Disposition - Plan for ED Patient: Referrals: Charla Wadsworth MD [Primary Care Provider] -
--- NOTE | 2019-07-01 23:01 | DCINST.ED_ITS ---
ED Disposition - Plan for ED Patient: Instructions: ED Contusion Back Prescriptions: Hydrocodone Bitart/Apap 5-325 [[place] 5MG-325MG] 1 tab PO Q4H PRN PRN 2 Days #10 tab PRN Reason: Pain Prescription Printed Referrals: Charla Wadsworth MD [Primary Care Provider] - 3-5 Days Additional Instructions: see your pain management doctor
[2019-07-01] MEDS: HYDROmorphone 1 MG/ML Syringe IM (23:20)
[2019-07-01] MEDS: Ondansetron 4 MG/2 ML Vial IM (23:20)
[2019-07-01 23:23] VITALS: RESP 18; O2SAT 98
== END 2019-07-01 23:45 | disposition home or self-care (01) ==
LOC: ED 23:11
PROVIDERS: Emergency Provider Emergency Medicine; PCP Internal Medicine
DX: S20.229A Contusion of unspecified back wall of thorax, initial encounter (principal); W17.89XA Other fall from one level to another, initial encounter; Y93.89 Activity, other specified; Y99.9 Unspecified external cause status; I49.5 Sick sinus syndrome; Z79.899 Other long term (current) drug therapy; Z95.0 Presence of cardiac pacemaker
CPT/HCPCS: 96372; 99282; J2405

== ENCOUNTER 2019-07-15 13:06 | Emergency (ER) | payer MEDICARE, MEDICAID, SELFPAY ==
[2019-07-06 09:09] VITALS: BMI 31.6
[2019-07-15 13:07] VITALS: BP 126/60; PULSE 58; RESP 17; TEMP 36.4; O2SAT 98; BMI 31.7
[2019-07-15] MEDS: Ketorolac 60 MG/2 ML Vial IM (13:50)
--- NOTE | 2019-07-15 13:50 | RAD_ITS ---
STUDY: X-RAY - SACRUM/COCCYX REASON FOR EXAM: Female, 53 years old. Fell, pain TECHNIQUE: 3 view(s) of the sacrum and coccyx were obtained. COMPARISON: None. 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 Normal visualized sacral ala and fused sacral bodies. Normal sacrococcygeal junction with a normal angulation. Normal coccygeal segments. The presacral soft tissue structures are unremarkable. RAD/Sacrum-Coccyx min 2 Views IMPRESSION: Degenerative sacroiliac joints bilaterally. Electronically Signed: Ming Roberts, at 14:15 EDT , Service support ,
--- NOTE | 2019-07-15 13:50 | RAD_ITS ---
STUDY: X-RAY - LUMBAR SPINE REASON FOR EXAM: Female, 53 years old. Fell, pain TECHNIQUE: 3 view(s) of the lumbar spine were obtained. COMPARISON: Comparison is made with prior examination June 30, 2019. FINDINGS: Normal lumbar lordosis. There is no substantial scoliosis. Stable minimal anterior listhesis of L4 on L5. 1 again, the patient is status post laminectomy and fusion at the L4-L5 level. Disc space narrowing at the L4-L5 and L5-S1 levels. The soft tissue structures are unremarkable. RAD/Lumbar Spine 2 or 3 Views IMPRESSION: Status post fusion and laminectomy at the L4-L5 level. There has been no change. Electronically Signed: Ming Roberts, at 14:14 EDT , Service support ,
--- NOTE | 2019-07-15 14:32 | ED.DCSUM_ITS ---
- ER Visit Summary Date of Service: 07/15/19 Chief Complaint: Back pain History of Present Illness: The patient is a [address] Wadsworth. She reports that she fell 1 week ago onto her buttocks. Since that time she has had an aching, throbbing low back pain that is 10 out of 10 at worst 9-10 currently. Is worsened by sitting. Is unrelieved by baclofen. She states that radiates down the back of her right leg to the level of her calf. She denies any numbness or weakness. No problems with her bowels or her bladder. No groin numbness. Patient reports that she has had similar symptoms previously. She fell approximately 3 weeks ago and had similar symptoms then. She states that she has been referred to pain management and has an appointment to see Dr. Alexander on August 08. Physical Examination: Vitals: Stable. Afebrile. General: A&O x 3. NAD. Cardiovascular exam: Regular rate and rhythm, no murmur, rub or gallop. Respiratory exam: Clear to auscultation bilaterally. No wheezes or stridor. Abdominal exam: Soft, nontender, nondistended, normal bowel sounds. No pe ritoneal signs. Back: Diffuse moderate tenderness to palpation over the lumbar spine and the paraspinous musculature in the lumbar region. Severe tenderness to palpation over the coccyx. Negative straight leg bilaterally. 5/5 DF, PF, EHL bilaterally. Normal sensation to light touch throughout. Normal gait. Extremity: No clubbing, cyanosis, or edema. Test Results: Clinical Impression(s) from Imaging Studies Lumbar Spine X-Ray 07/15/19 13:50 IMPRESSION: Status post fusion and laminectomy at the L4-L5 level. There has been no change. Electronically Signed: Ming Roberts, at 14:14 EDT , Service support , Sacrum and Coccyx X-Ray 07/15/19 13:50 IMPRESSION: Degenerative sacroiliac joints bilaterally. Electronically Signed: Ming Roberts, at 14:15 EDT , Service support , Emergency Department Course and Treatment: Patient was given a shot of Toradol IM. She reports that she is already taking Tylenol. She states that she is unable to take any oral NSAIDs because she has a history of a neuroendocrine tumor and partial gastrectomy. She reports that her primary care physician will not prescribe her stronger pain medications. And is asking if there is a pain medication that is not a NSAID that is stronger than Tylenol. I informed her that only opiate-based medications are stronger than Tylenol and not NSAIDs. I then explained to her that she has acute on chronic pain and I do not think opiate-based medications are indicated. Even if they are that they need to prescribe by one physician and this should be her primary care physician or pain management. Patient became very angry and walked out. She had no difficulty walking. Treatment Plan: Patient is instructed to follow-up with her primary care physician for further treatment of her chronic pain. She is instructed to call Dr. Alexander and get into see him as soon as she can. Disposition: To home in improved and stable condition. Impression: 1. Fall. 2. Low back pain, acute on chronic. 3. Coccygeal contusion. This note was generated with [employer] dictation software. It may contain incorrect words, spelling, and punctuation that were not noted in review of the chart prior to signing ED Disposition - Plan for ED Patient: Disposition: Home or Assisted Living Instructions: ED Back Pain Acute or Chronic Referrals: Charla Wadsworth MD [Primary Care Provider] - 1 Week if not improving Jose Rafael Alexander [NON-STAFF] - As soon as possible
--- NOTE | 2019-07-15 14:53 | ED.RN ---
THIS NURSE WENT IN TO D/C PT. PT STATES I DONT WANT NOTHING FROM YOU GUYS, HES GONNA GET REPORTED, REFERRING TO DR. HUITRON. THIS NURSE HANDED PT HER DC PAPWERWORK, REFUSED DC VITALS AT S TIME
--- NOTE | 2019-07-15 14:55 | ED.RN ---
pt yelling at staff when given dc papers and stated, i dont anything from you! and im reporting that !
== END 2019-07-15 14:56 | disposition home or self-care (01) ==
PROVIDERS: Emergency Provider Emergency Medicine; PCP Internal Medicine
DX: M54.5 Low back pain (principal); G89.29 Other chronic pain; S30.0XXA Contusion of lower back and pelvis, initial encounter; W19.XXXA Unspecified fall, initial encounter; Y93.9 Activity, unspecified; Y92.9 Unspecified place or not applicable; Y99.9 Unspecified external cause status; Z98.1 Arthrodesis status; Z79.899 Other long term (current) drug therapy
CPT/HCPCS: 72100; 72220; 96372; 99282

== ENCOUNTER 2019-10-18 20:03 | Inpatient (IN) | payer MEDICARE, MEDICAID, SELFPAY ==
[2019-09-29 09:27] VITALS: BMI 31.1
[2019-10-18 20:05] VITALS: BP 156/108; PULSE 87; RESP 18; TEMP 37.2; O2SAT 98; BMI 32.4
--- NOTE | 2019-10-18 20:05 | ED.VIS.GEN ---
History of Present Illness Chief Complaint: Abd Pain Narrative: 54-year-old female presenting with cramping diffuse abdominal pain which is worst in the right lower quadrant. 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 She states he had this resected and her gallbladder removed. Since that time she has had diarrhea and cramping of her abdomen. She also complains of nausea and vomiting. She states she is been trying to keep down fluids and sports drinks to keep up with her electrolytes. She denies any recent antibiotics. She states that her stool has never been tested. She has not had a fever but states sometimes she breaks out in the sweats while she is having episodes of diarrhea nausea and vomiting. She states that since her tumor was resected she has followed up with oncology and has been stable since then. She is not had to be on any chemotherapy. She has had no new tumors that she knows of. She states that she is established here with a new oncologist but he is still seeking her medical records to determine our goal of care. Past Medical History - Allergies and Home Meds Allergies/Adverse Reactions: Allergies latex Allergy (Intermediate, Verified 10/18/19 20:04) skin irritation aspirin Adverse Reaction (Severe, Verified 10/18/19 20:04) Nausea/Vom/Diarrhea erythromycin base [Erythromycin Base] Adverse Reaction (Severe, Verified 10/18/19 20:04) Vomiting,diarrhea NSAIDS (Non-Steroidal Anti-Inflamma Adverse Reaction (Severe, Verified 10/18/19 20:04) Vomiting,diarrhea Primary Care Physician: Charla Wadsworth MD [Primary Care Provider] - Surgical History: cholecystectomy, pacemaker implantation, - - elbow surgery, hysterectemy,appendectemy, sever lap surgeries on abd, removed masses in her neck Lives: With Family Smoking Status: Former smoker Alcohol: None Drugs: None - Family History Maternal Family History: Family History (Last Updated 09/29/19 @ 09:23 by Darleen Ramirez) Daughter Multiple sclerosis Father CAD (coronary artery disease) Heart disease Multiple sclerosis Grandfather Heart disease Uncle Heart disease Aunt No problems noted. Sister Colon cancer Mother Hypertension Family History: Reports: No pertinent history Review of Systems General: Reports: Sweats. Denies: Chills, Fever Eyes: Denies: Visual changes - bilaterally, Diplopia ENT: Denies: Rhinorrhea, Sore throat Cardiovascular: Denies: Chest pain, Palpitations Respiratory: Denies: Dyspnea, Cough, Dyspnea on exertion Gastrointestinal: Reports: Abdominal pain, Nausea, Vomiting, Diarrhea. Denies: Melena, Hematochezia Genitourinary: Denies: Dysuria Musculoskeletal: Reports: - - Muscle spasms Skin: Denies: Rash Endocrine: Denies: Polyuria, Polydipsia Hematologic: Denies: Easy bruising, Easy bleeding Physical Exam General: Obese, No Acute Distress Head: Normocephalic Eyes: Perrl, EOMI. Negative for: Scleral icterus ENT: Moist mucous membranes Cardiovascular: Regular rate, Regular rhythm Respiratory: No distress, CTA bilaterally Abdomen: Soft, Tender - Generalized tenderness with worsened tenderness in the right lower quadrant. Abdomen is non-peritoneal. Extremities: Nontender, No edema Skin: Normal color, No rash, Cyanosis. Negative for: Jaundice Neurological: Alert, Oriented x3 Psychological: Normal affect Diagnostic/Tx/Re-eval - Rhythm Strip Rhythm Strip: Sinus Rhythm Rate: 60 - EKG Initial EKG Interpretation: Sinus Rhythm, No Acute Injury Pattern - Medical Decision Making Patient was seen and evaluated on arrival for nausea, vomiting, diarrhea as well as some abdominal pain. She is also experiencing episodes of sweats periodically. Not always associated with her diarrhea or vomiting. She is having trouble keeping down p.o. fluids and having excessive diarrhea. Today her lab work shows that she has acute kidney injury. She was given liter bolus of IV fluids as well as started on maintenance of 100/h. Her potassium and magnesium were both low. I replaced her magnesium with 4 mg of IV magnesium as well as replaced her potassium subsequently with 40 mEq of p.o. and IV potassium. Lab work shows a slight leukocytosis. Patient's urinalysis is pending as patient is unable to void currently. I also did order a stool study however she is not able t to give a stool sample. CT of the abdomen pelvis was performed IV contrast due to acute kidney injury and decreased GFR. This does not show any acute process. Given her nausea and vomiting as well as diarrhea with lecture light abnormality I do believe the patient should be admitted. She is amenable to this. I did discuss this with the hospitalist and he is also amenable. Impression: 1. Abdominal pain 2. Hypokalemia 3. Hypomagnesemia 4. Acute kidney injury 5. Diarrhea 6. Nausea/vomiting ED Disposition - Plan for ED Patient: Referrals: Charla Wadsworth MD [Primary Care Provider] -
--- NOTE | 2019-10-18 20:21 | CT_ITS ---
STUDY: CT ABDOMEN AND PELVIS WITHOUT CONTRAST REASON FOR EXAM: Female, 54 years old. Right lower quadrant pain, nausea and vomiting RADIATION DOSAGE (If Supplied By Facility): CTDIvol = ( 10.03 ) mGy, DLP = ( 483.40 ) mGycm TECHNIQUE: Transaxial images were obtained from the dome of the diaphragm to the symphysis pubis without oral contrast, and without intravenous contrast. Sagittal and coronal images were reconstructed. Individualized dose optimization techniques were used for this CT. COMPARISON: 11/01/2018 FINDINGS: The visualized lung bases are unremarkable. The visualized portions of the heart are within normal limits, pacer leads seen along the base of the heart. Normal liver. There are surgical clips in the gallbladder fossa consistent with a prior cholecystectomy. Normal spleen. Normal pancreas. Normal bilateral adrenal glands. Normal right kidney. Normal left kidney. Postsurgical changes in the stomach. Normal small intestine. Normal colon. There is non-visualization of the appendix. Normal abdominal aorta. Normal inferior vena cava. Normal retroperitoneum. Normal urinary bladder. Normal abdominal wall. There are diffuse degenerative and postsurgical changes of the visualized lumbar spine. No demonstrated pelvic fracture CT/Abdomen/Pelvis without Cont IMPRESSION: No suspicious solid organ abnormality, previous cholecystectomy No CT evidence of acute inflammatory process, appendix and visualized No free intraperitoneal fluid, air, or suspicious adenopathy Electronically Signed: Murphy Dobbs MD at 22:33 EDT , Service support ,
[2019-10-18] MEDS: 0.9% Normal Saline 1,000 ML 999 ML IV (20:33)
[2019-10-18] MEDS: proMETHazine 25 MG/ML Syringe 12.5 MG IV (20:33)
[2019-10-18] MEDS: Morphine 4 MG/ML Syringe IV (20:34)
[2019-10-18 20:54] LABS: Absolute Lymphocyte Count 3.67 X10^3/uL (0.83-4.51); Absolute Neutrophil Count 8.2 X10^3/uL (2.0-7.7); Basophil# 0.04 X10^3/uL; Basophil% 0.3 % (0-1); Eosinophil# 0.23 X10^3/uL; Eosinophils% 1.7 % (0-5); Hematocrit 40.2 % (37-47); Hemoglobin 13.7 g/dL (12.0-15.0); Lymphocyte # 3.67 X10^3/ul (4.0); Lymphocyte % 27.7 % (19-41); Mean Corp Hgb Conc 34.1 g/dL (32-36); Mean Corpuscular Hgb 31.1 pg (27.0-32.0); Mean Corpuscular Volume 91.4 fL (81-99); Mean Platelet Vol. 9.4 fl (6.2-12.0); Monocyte# 0.94 X10^3/uL; Monocyte% 7.1 % (0-10); NRBC Flagged by Analyzer 0 % (0-5); Neutrophil # 8.24 X10^3/uL (2.7-7.7); Neutrophil % 62.3 % (47-70); Platelet Count 265 K/mm3 (150-450); RBC Distribution Width CV 13.1 % (11.6-14.6); RBC Distribution Width SD 43.6 fl (35.1-43.9); White Blood Count 13.2 K/mm3 (4.4-11.0)
[2019-10-18 21:09] LABS: ALB/GLOB Ratio 0.8 RATIO (0.9-2.4); AST(SGOT) 17 U/L (15-37); Alanine Aminotransfer ALT/SGPT 21 U/L (13-56); Albumin, Serum 3.5 g/dL (3.2-5.0); Alkaline Phosphatase 108 U/L (45-117); Anion Gap 7 (5-15); BUN 35 mg/dL (7-18); BUN/Creat Ratio 21.1 RATIO (10-20); Calcium,Total 8.9 mg/dL (8.5-10.1); Chloride 107 mmol/L (98-107); Creatinine, Serum 1.66 mg/dL (0.55-1.02); EST Glomerular Filtration Rate 34 mL/min (>60); Est Glom Filt Rate - Afr Amer 41 mL/min (>60); Estimated Creatinine Clearance 30.64 ml/min; Globulin 4.2 g/dL (2.2-4.2); Glucose 107 mg/dL (74-106); Lipase 133 U/L (73-393); Magnesium 1.4 mg/dL (1.6-2.6); Potassium 2.8 mmol/L (3.5-5.1); Protein, Total 7.7 g/dL (6.4-8.2); Sodium Level 139 mmol/L (136-145)
[2019-10-18] MEDS: Magnesium Sulfate 4gm/100mL 4 GM/100 ML IV.SOLN. IV (22:12)
[2019-10-18 22:13] VITALS: BP 152/91; PULSE 71; RESP 14; O2SAT 98
--- NOTE | 2019-10-18 22:42 | EKG12_ITS ---
Test Reason : ABD PAIN Blood Pressure : / mmHG Vent. Rate : 065 BPM Atrial Rate : 065 BPM P-R Int : 184 ms QRS Dur : 080 ms QT Int : 438 ms P-R-T Axes : 048 048 058 degrees QTc Int : 455 ms Normal sinus rhythm Normal ECG Confirmed by MARK GAUTAM, CHRIS ([id number]), desk editor OTIS RUIZ ([id number]) on 10/19/2019 9:43:16 AM Referred By: Robel Abrams Confirmed By:CHRIS FLORES MD
--- NOTE | 2019-10-18 22:46 | PCM.HP.STD ---
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 (5) Sacral contusion Status: Acute (6) Anxiety and depression Status: Chronic (7) Intermittent palpitations Status: Chronic (8) Essential (primary) hypertension Status: Chronic (9) Sick sinus syndrome Status: Chronic (10) Tobacco dependence syndrome Status: Chronic History of Present Illness Date of Admission: 10/18/19 Chief Complaint: nausea, vomiting and diarrhea The patient is a 54 year old F with a significant history of neuroendocrine tumor status post partial gastrectomy; sick sinus syndrome status post pacemaker;Cholecystectomy and anxiety disorder who presents emergency department with nausea; vomiting and diarrhea. Her symptom has been going on for more than 6 weeks. She reports multiple episodes of watery stools. Further she has occasional profuse diaphoresis. Also she has cramps in her bilateral feet and bilateral hands. Also she has right quadrant abdominal pain. Patient was recently referred to Dr. Raegan Noel, oncologist. Per patient further work-up has been planned with Dr. Noel. At the emergency department her potassium was 2.8. Her magnesium was 1.4. Her creatinine was 1.66. About a year ago, he saw Dr. Mack, about a year and a half for right upper quadrant pain. Per patient CT scan and EGD done by was unremarkable. Her partial gastrectomy was done at [facility]. Past Medical History Past Medical History (Chronic Problems): Chronic Problems (Last Reviewed 10/18/19 @ 23:[address] Robel Abrams MD) COPD (chronic obstructive pulmonary disease) (Chronic) Polycythemia (Chronic) Primary malignant neuroendocrine tumor of stomach (Chronic) Anxiety and depression (Chronic) Intermittent palpitations (Chronic) Essential (primary) hypertension (Chronic) Sick sinus syndrome (Chronic) Tobacco dependence syndrome (Chronic) Medical History: Medical History (Last Reviewed 10/19/19 @ 03:[address] 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 GERD (gastroesophageal reflux disease) K21.9 GERD (gastroesophageal reflux disease) K21.9 Gabapentin overdose T42.6X1A Heart murmur R01.1 History of anxiety disorder Z86.59 History of pneumonia Z87.01 Hypoglycemia E16.2 Hypothyroidism E03.9 Hypothyroidism E03.9 Neuroendocrine neoplasm of stomach D3A.8 Neuropathy G62.9 Neuropathy G62.9 ELOY (obstructive sleep apnea) G47.33 Obesity E66.9 Obstructive sleep apnea G47.33 PTSD (post-traumatic stress disorder) F43.10 PTSD (post-traumatic stress disorder) F43.10 Sinus pause I45.5 Vitamin D deficiency E55.9 Allergies latex Allergy (Intermediate, Verified 10/18/19 20:04) skin irritation aspirin Adverse Reaction (Severe, Verified 10/18/19 20:04) Nausea/Vom/Diarrhea erythromycin base [Erythromycin Base] Adverse Reaction (Severe, Verified 10/18/19 20:04) Vomiting,diarrhea NSAIDS (Non-Steroidal Anti-Inflamma Adverse Reaction (Severe, Verified 10/18/19 20:04) Vomiting,diarrhea Home Medications: Ambulatory Orders Medication Instructions Recorded Duloxetine Hcl [Cymbalta] 120 mg PO DAILY 03/28/15 buspirone 5 mg tablet 5 mg PO TID #90 tab 02/03/19 hydrochlorothiazide 25 mg tablet 25 mg PO DAILY #30 tab 06/05/19 Lorazepam 1 mg PO TID PRN PRN 06/30/19 Zolpidem Tartrate [Ambien] 10 mg PO QHS 06/30/19 promethazine 12.5 mg tablet 12.5 mg PO BID PRN #30 tab 08/07/19 omeprazole 40 mg capsule,delayed 40 mg PO DAILY #90 cap 09/10/19 release metoprolol tartrate 50 mg tablet 50 mg PO BID #180 tab 09/15/19 Levothyroxine Sodium [Synthroid] 25 mcg PO DAILY 09/29/19 lisinopril 40 mg tablet 40 mg PO DAILY #90 tab 10/02/19 methocarbamol 750 mg tablet 750 mg PO BID PRN #180 tab 10/02/19 Surgical History: Surgical History (Last Reviewed 10/19/19 @ 03:[address] Robel Abrams MD) Presence of permanent cardiac pacemaker (Resolved) Onset Date: 2013 Z95.0 2004, Gen change 2014 History of appendectomy Z90.49 History of back surgery Z98.890 History of colonoscopy Z98.890 2018, every 5 years due to polyps. 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 Robel Abrams MD) Daughter Multiple sclerosis Father CAD (coronary artery disease) Heart disease Multiple sclerosis Grandfather Heart disease Uncle Heart disease Aunt No problems noted. Sister Colon cancer Mother Hypertension Review of Systems Constitutional: Denies: Chills, Fever, Weight Change HEENT: Denies: Head Aches, Sinus Congestion, Sinus Drainage Cardiovascular: Denies: Chest Pain, Palpitations Respiratory: Denies: Cough, Shortness of breath at rest, Sputum production Gastrointestinal: Reports: Abdominal Pain, Diarrhea, Nausea, Vomiting Genitourinary: Denies: Dysuria Musculoskeletal: Denies: Joint Pain, Joint Tenderness Skin: Denies: Rash, Wounds Neurological: Denies: Numbness, Tingling, Focal weakness Psychiatric: Denies: Anxiety, Depression, Homicidal Ideations, Suicidal Ideations Hematologic/ Lymphatic: Denies: Easy Bruising, Easy Bleeding VTE Information - Inpt Only VTE Present on Admission: No VTE Mechan Device Prophylaxis: None VTE Pharm Prophylaxis ordered?: Yes Patient Problems: Active and Suspected Problems (Last Reviewed 10/18/19 @ 23:[address] Robel Abrams MD) Nausea, vomiting and diarrhea (Acute) - Physical Exam Vitals/I&O's: Vital Signs Temp Pulse Resp BP Pulse Ox 99 F 71 14 152/91 H 98 10/18/19 20:05 10/18/19 22:13 10/18/19 22:13 10/18/19 22:13 10/18/19 22:13 Oxygen Delivery Method Room Air Weight: 80.4 kg Body Mass Index (BMI) 32.4 Finger Stick Blood Glucose 92 Intake and Output for Last 24 Hours 10/16/19 10/17/19 10/18/19 23:59 23:59 23:59 Intake Total 1000 / 1000 Balance 1000 / 1000 General: Alert, Oriented x3, Cooperative HEENT: Atraumatic, PERRLA, EOMI, Normocephalic Neck: Supple, No JVD, Negative Carotid Bruits Lungs: Clear to auscultation, Normal air movement Cardiovascular: Regular rate, No murmurs Abdomen: Bowel Sounds Present, Soft, Tender Extremities: No edema, Capillary Refill Less than 3 Seconds Skin: No rashes, No breakdown Musculoskeletal: No Tenderness to Palpation of Joints or Extremities Neurological: Cranial nerves II-XII grossly intact Psych/Mental Status: Normal Affect, Appropriate Laboratory Results 10/18/19 20:40: WBC 13.2 H, RBC 4.40, Hgb 13.7, Hct 40.2, MCV 91.4, MCH 31.1, MCHC 34.1, RDW Std Deviation 43.6, RDW Coeff of Ross 13.1, Plt Count 265, MPV 9.4, Immature Gran % (Auto) 0.900, Neut % (Auto) 62.3, Lymph % (Auto) 27.7, [place] % (Auto) 7.1, Eos % (Auto) 1.7, Baso % (Auto) 0.3, Absolute Neuts (auto) 8.2 H, Absolute Lymphs (auto) 3.67, Nucleated RBC % 0 10/18/19 20:40: Sodium 139, Potassium 2.8 L, Chloride 107, Carbon Dioxide 25.0, Anion Gap 7, BUN 35 H, Creatinine 1.66 H, Estim Creat Clear Calc 30.64, Est GFR (MDRD) Af Amer 41 L, Est GFR (MDRD) Non-Af 34 L, BUN/Creatinine Ratio 21.1 H, Glucose 107 H, Calcium 8.9, Magnesium 1.4 L, Total Bilirubin 0.20, AST 17, ALT 21, Alkaline Phosphatase 108, Total Protein 7.7, Albumin 3.5, Globulin 4.2, Albumin/Globulin Ratio 0.8 L, Lipase 133 Current Medications Magnesium Sulfate () 4 gm in 100 mls @ 25 mls/hr IV X1 ONE Stop: 10/19/19 01:44 Last Admin: 10/18/19 22:12 Dose: 25 mls/hr Documented by: Assessment/Plan All Active Problems (Last Reviewed 10/18/19 @ 23:[address] Robel Abrams MD) Nausea, vomiting and diarrhea (Acute) Sacral contusion (Acute) Presence of permanent cardiac pacemaker (Resolved 2013) The patient is a 54 year old F with a significant history of neuroendocrine tumor status post partial gastrectomy; sick sinus syndrome status post pacemaker; cholecystectomy and anxiety disorder who presents emergency department with nausea vomiting and diarrhea; diaphoresis; cramps in extremities; right upper quadrant abdominal pain: And with hypomagnesemia; hypokalemia and elevated creatinine way above her baseline. Nausea, vomiting and diarrhea Suspect recurrence of neuroendocrine tumor. Patient may be a candidate of Sandostatin. However will consult oncology and if they further work-up and treatment at this time. Supportive treatment with IV fluids. PRN antiemetics ordered. PRN morphine for pain. Enteropathogenic panel was ordered emergency department, follow Hypomagnesemia Review of ED labs showed magnesium level of 1.4. 4 g of magnesium ordered at the ED. Hypokalemia Review of ED labs showed a potassium was 2.8 Potassium 40 mEq p.o.; and potassium 40 mEq IV ordered. Trend BMP. ARMANI Creatinine presentation was 1.66 Review of old records shows creatinine baseline of less than 1. BUN is 35 BUN over creatinine is 21.1. Likely prerenal leading to dehydration. Gentle IV fluids Avoid nephrotoxins Home lisinopril and hydrochlorothiazide held. Hypertension At presentation blood pressure was not within goal Adequate thiazide and lisinopril held secondary to ARMANI. PRN Hydralazine ordered. Trend blood pressures. Tobacco abuse: Some day smoker. Counseled. DVT prophylaxis: Subcutaneous Lovenox. Inpatient E&M: 42105 Init Hosp L3
[2019-10-18] MEDS: 0.9% Normal Saline 1,000 ML 100 ML IV (23:02)
[2019-10-18 23:03] VITALS: BP 127/78; PULSE 64; RESP 13; TEMP 36.8; O2SAT 98
[2019-10-18 23:14] LABS: Thyroid Stim Hormone (TSH) 2.03 uIU/mL (0.358-3.74)
[2019-10-18] MEDS: Potassium Chloride 10mEq/100mL 10 MEQ/100 ML IV.SOLN. 100 MEQ IV BOLUS (23:17)
[2019-10-19] VITALS (14 sets, daily range): BP systolic 100–127; BP diastolic 53–69; PULSE 59–74; RESP 16–18; TEMP 36.7–36.9; O2SAT 95–100; BMI 33.0; BMI 33.1
[2019-10-19] MEDS: Zolpidem Tartrate 5 MG Tablet PO ×2 (01:24→21:39)
[2019-10-19] MEDS: Morphine 2 MG/ML Syringe 1 MG IV ×4 (01:30→20:31)
[2019-10-19] MEDS: Ondansetron 4 MG/2 ML Vial IV ×2 (01:30→17:33)
[2019-10-19] MEDS: Lactated Ringers 1,000 ML 100 ML IV ×3 (01:31→21:38)
[2019-10-19 01:42] LABS: Bacteria 0 SEEN /hpf (None Seen); Mucous, Urine 0 SEEN /hpf (<or=2+); Red Blood Cells-Urine 0 SEEN /hpf (0-5); White Blood Cells 0 SEEN /hpf (0-5)
[2019-10-19 01:44] LABS: Color, Urine Yellow (Yellow); Glucose, Dipstick Normal (Normal); Ketone-Dipstick Negative (Negative); Leukocyte Esterase-Dipstick Negative /ul (Negative); Nitrite-Dipstick Negative (Negative); Occult Blood-Urine Negative /ul (Negative); Protein-Dipstick Negative (Negative); Urine Bilirubin Dipstick Negative (Negative); Urine Clarity Clear (Clear); Urine Urobilinogen Normal (Normal)
[2019-10-19 01:50] LABS: Squamous Epithelial Cells - UA 0-5 SEEN /hpf (5-10); Transitional Epithelial - Ur 0-5 SEEN /hpf (0-5)
[2019-10-19] MEDS: Potassium Chloride 10mEq/100mL 10 MEQ/100 ML IV.SOLN. 100 MEQ IV BOLUS ×3 (01:59→04:41)
[2019-10-19] MEDS: proCHLORPERazine 10 MG/2 ML Vial 5 MG IV ×2 (04:45→09:02)
[2019-10-19] MEDS: Levothyroxine 25 MCG TABLET PO (04:48)
[2019-10-19] MEDS: busPIRone 5 MG Tablet PO ×3 (04:48→21:39)
[2019-10-19 05:48] LABS: Absolute Lymphocyte Count 3.26 X10^3/uL (0.83-4.51); Absolute Neutrophil Count 6.3 X10^3/uL (2.0-7.7); Basophil# 0.03 X10^3/uL; Basophil% 0.3 % (0-1); Eosinophil# 0.23 X10^3/uL; Eosinophils% 2.2 % (0-5); Hematocrit 35.9 % (37-47); Lymphocyte # 3.26 X10^3/ul (4.0); Lymphocyte % 30.8 % (19-41); Mean Corp Hgb Conc 33.4 g/dL (32-36); Mean Corpuscular Hgb 30.8 pg (27.0-32.0); Mean Corpuscular Volume 92.3 fL (81-99); Mean Platelet Vol. 9.2 fl (6.2-12.0); Monocyte# 0.71 X10^3/uL; Monocyte% 6.7 % (0-10); NRBC Flagged by Analyzer 0 % (0-5); Neutrophil # 6.32 X10^3/uL (2.7-7.7); Neutrophil % 59.5 % (47-70); Platelet Count 228 K/mm3 (150-450); RBC Distribution Width CV 13.1 % (11.6-14.6); RBC Distribution Width SD 43.9 fl (35.1-43.9); Red Blood Count 3.89 M/mm3 (4.2-5.4); White Blood Count 10.6 K/mm3 (4.4-11.0)
[2019-10-19 06:24] LABS: Anion Gap 5 (5-15); BUN 24 mg/dL (7-18); BUN/Creat Ratio 21.6 RATIO (10-20); Calcium,Total 8.3 mg/dL (8.5-10.1); Chloride 111 mmol/L (98-107); Creatinine, Serum 1.11 mg/dL (0.55-1.02); EST Glomerular Filtration Rate 54 mL/min (>60); Est Glom Filt Rate - Afr Amer 66 mL/min (>60); Estimated Creatinine Clearance 45.82 ml/min; Glucose 112 mg/dL (74-106); Potassium 3.7 mmol/L (3.5-5.1); Sodium Level 142 mmol/L (136-145)
[2019-10-19] MEDS: proMETHazine 25 MG Tablet 12.5 MG PO (08:06)
[2019-10-19] MEDS: 0.9% Saline Lock 10 ML Syringe IV (09:03)
[2019-10-19] MEDS: Metoprolol Tartrate 50 MG Tablet PO ×2 (09:10→21:39)
[2019-10-19] MEDS: DULoxetine Hcl 60 MG Capsule 120 MG PO (09:10)
[2019-10-19] MEDS: Pantoprazole Sodium 40 MG Tablet PO (09:10)
[2019-10-19] MEDS: Enoxaparin 40 MG/0.4 ML Syringe SC (09:10)
[2019-10-19] MEDS: Ensure Clear 120 ML Liquid PO ×2 (09:12→21:39)
--- NOTE | 2019-10-19 09:44 | PN_ITS ---
Patient Problems: Active and Suspected Problems (Last Reviewed 10/19/19 @ 03:[address] Robel Abrams MD) Nausea, vomiting and diarrhea (Acute) Reason for Visit: Follow-up for acute gastroenteritis, neuroendocrine tumor. Objective: Seen and examined Patient said improvement in diarrhea. Did not vomit since morning. Was admitted yesterday with nausea, vomiting and diarrhea for about 6 weeks. Diarrhea was multiple, watery. She also feels cramps in bilateral legs and hands symptoms dehydrated. Physical exam General: Alert, Oriented x3, Cooperative HEENT: Atraumatic, PERRLA, EOMI, Normocephalic Oral: No Gingival or Mucosal Lesions/ Ulcerations Neck: Supple, No JVD, Negative Carotid Bruits Lungs: Air entry diminished in bilateral lung bases. No crepitation/rhonchi Cardiovascular: Regular rate, Regular Rhythm, Normal S1, Normal S2, No murmurs Abdomen: Bowel Sounds Present, Soft, mild tenderness in epigastrium and right upper quadrant, Non-Distended : No renal angle tenderness. No suprapubic tenderness. Extremities: No edema, Capillary Refill Less than 3 Seconds Skin: No rashes, No breakdown Musculoskeletal: No Tenderness to Palpation of Joints or Extremities Neurological: Cranial nerves II-XII grossly intact, Deep Tendon Reflexes 2+/4 and Symmetrical, Neuro grossly intact Psych/Mental Status: Normal Affect, Appropriate. Vitals/I&O's: Vital Signs Temp Pulse Resp BP Pulse Ox 98.3 F 60 18 111/65 100 10/19/19 09:13 10/19/19 09:13 10/19/19 09:13 10/19/19 09:13 10/19/19 09:13 Oxygen Delivery Method Room Air Weight: 180 lb 15.992 oz Body Mass Index (BMI) 33.0 Finger Stick Blood Glucose 92 Intake and Output for Last 24 Hours 10/17/19 10/18/19 10/19/19 23:59 23:59 23:59 Intake Total 1000 / 1000 773.33 / 773.33 Balance 1000 / 1000 773.33 / 773.33 Laboratory Results 10/18/19 20:40: WBC 13.2 H, RBC 4.40, Hgb 13.7, Hct 40.2, MCV 91.4, MCH 31.1, MCHC 34.1, RDW Std Deviation 43.6, RDW Coeff of Ross 13.1, Plt Count 265, MPV 9.4, Immature Gran % (Auto) 0.900, Neut % (Auto) 62.3, Lymph % (Auto) 27.7, [place] % (Auto) 7.1, Eos % (Auto) 1.7, Baso % (Auto) 0.3, Absolute Neuts (auto) 8.2 H, Absolute Lymphs (auto) 3.67, Nucleated RBC % 0 10/18/19 20:40: Sodium 139, Potassium 2.8 L, Chloride 107, Carbon Dioxide 25.0, Anion Gap 7, BUN 35 H, Creatinine 1.66 H, Estim Creat Clear Calc 30.64, Est GFR (MDRD) Af Amer 41 L, Est GFR (MDRD) Non-Af 34 L, BUN/Creatinine Ratio 21.1 H, Glucose 107 H, Calcium 8.9, Magnesium 1.4 L, Total Bilirubin 0.20, AST 17, ALT 21, Alkaline Phosphatase 108, Total Protein 7.7, Albumin 3.5, Globulin 4.2, Albumin/Globulin Ratio 0.8 L, Lipase 133 10/18/19 20:45: TSH 2.03 10/19/19 00:25: Urine Color Yellow, Urine Clarity Clear, Urine pH 6.0, Ur Specific [place] 1.010, Urine Protein Negative, Urine Glucose (UA) Normal, Urine Ketones Negative, Urine Occult Blood Negative, Urine Nitrite Negative, Urine Bilirubin Negative, Urine Urobilinogen Normal, Ur Leukocyte Esterase Negative, Urine RBC 0 SEEN, Urine WBC 0 SEEN, Ur Squamous Epith Cells 0-5 SEEN, Ur Transition Epith Cell 0-5 SEEN, Urine Bacteria 0 SEEN, Urine Mucus 0 SEEN 10/19/19 05:25: WBC 10.6, RBC 3.89 L, Hgb 12.0, Hct 35.9 L, MCV 92.3, MCH 30.8, MCHC 33.4, RDW Std Deviation 43.9, RDW Coeff of Ross 13.1, Plt Count 228, MPV 9.2, Immature Gran % (Auto) 0.500, Neut % (Auto) 59.5, Lymph % (Auto) 30.8, [place] % (Auto) 6.7, Eos % (Auto) 2.2, Baso % (Auto) 0.3, Absolute Neuts (auto) 6.3, Absolute Lymphs (auto) 3.26, Nucleated RBC % 0 10/19/19 05:25: Sodium 142, Potassium 3.7, Chloride 111 H, Carbon Dioxide 26.0, Anion Gap 5, BUN 24 H, Creatinine 1.11 H, Estim Creat Clear Calc 45.82, Est GFR (MDRD) Af Amer 66, Est GFR (MDRD) Non-Af 54 L, BUN/Creatinine Ratio 21.6 H, Glucose 112 H, Calcium 8.3 L Current Medications Buspirone HCl (Buspar) 5 mg PO TID [facility] Last Admin: 10/19/19 04:48 Dose: 5 mg Documented by: Duloxetine HCl (Cymbalta) 120 mg PO DAILY [facility] Last Admin: 10/19/19 09:10 Dose: 120 mg Documented by: Enoxaparin Sodium (Lovenox) 40 mg SC DAILY [facility] Last Admin: 10/19/19 09:10 Dose: 40 mg Documented by: Hydralazine HCl (Apresoline Iv) 10 mg IV Q4H PRN PRN PRN Reason: SBP > 160 Lactated Ringer's () 1,000 mls @ 100 mls/hr IV .Q10H [facility] Last Admin: 10/19/19 01:31 Dose: 100 mls/hr Documented by: Levothyroxine Sodium (Synthroid) 25 mcg PO DAILY@0600 [facility] Last Admin: 10/19/19 04:48 Dose: 25 mcg Documented by: Lorazepam (Ativan) 1 mg PO TID PRN PRN PRN Reason: ANXIETY Methocarbamol (Methocarbamol) 750 mg PO BID PRN PRN PRN Reason: muscle spasticity Metoprolol Tartrate (Lopressor (Beta Mirna)) 50 mg PO BID [facility] Last Admin: 10/19/19 09:10 Dose: 50 mg Documented by: Morphine Sulfate () 1 mg IV Q3H PRN PRN PRN Reason: Pain Score 6-10/10 Last Admin: 10/19/19 09:03 Dose: 1 mg Documented by: Nutritional Formula (Lactose Free) (Ensure Clear) 120 ml PO 4X/DAY [facility] Last Admin: 10/19/19 09:12 Dose: 120 ml Documented by: Ondansetron HCl (Zofran) 4 mg IV Q8H PRN PRN PRN Reason: NAUSEA/VOMITING Last Admin: 10/19/19 01:30 Dose: 4 mg Documented by: Pantoprazole Sodium (Protonix) 40 mg PO DAILY [facility] Last Admin: 10/19/19 09:10 Dose: 40 mg Documented by: Prochlorperazine Edisylate (Compazine Iv) 5 mg IV Q4H PRN PRN PRN Reason: Breakthrough nausea/vomiting Last Admin: 10/19/19 09:02 Dose: 5 mg Documented by: Promethazine HCl (Phenergan Tablet) 12.5 mg PO BID PRN PRN PRN Reason: nausea/vomiting Last Admin: 10/19/19 08:06 Dose: 12.5 mg Documented by: Sodium Chloride () 10 - 40 ml IV UD PRN PRN Reason: SALINE FLUSH Last Admin: 10/19/19 09:03 Dose: 10 ml Documented by: Zolpidem Tartrate (Ambien (Generic)) 5 mg PO QHS [facility] Last Admin: 10/19/19 01:47 Dose: Not Given Documented by: STROKE Vital Signs/Narrative: Vital Signs Temp Pulse Resp BP Pulse Ox 10/19/19 09:13 98.3 F 60 18 111/65 100 10/19/19 09:10 60 111/65 10/19/19 07:15 95 10/19/19 06:35 67 Medical Necessity - Tobacco Use Smoking Status: Former smoker Tobacco Use: Cigarettes Assessment/Plan All Active Problems (Last Reviewed 10/19/19 @ 03:[address] Robel Abrams MD) Nausea, vomiting and diarrhea (Acute) Sacral contusion (Acute) Presence of permanent cardiac pacemaker (Resolved 2013) The patient is a 54 year old F with a significant history of neuroendocrine tumor status post partial gastrectomy; sick sinus syndrome status post pacemaker; cholecystectomy and anxiety disorder was admitted with nausea, vomiting and diarrhea, diaphoresis, cramps in upper extremities and right upper quadrant pain with electrolyte abnormality and acute kidney injury. 1. Nausea, vomiting and diarrhea suggestive of acute gastroenteritis: She has history of primary gastric neuroendocrine tumor. Discussed with oncologist. As per him, it does not seem recurrence of neuroendocrine tumor as she had laparoscopic partial gastrectomy and cholecystectomy in May 2017 at [facility]. She follows Dr. Rubi. She gets annual surveillance CT scan and EGD by him. Last one was in December 07 which showed reactive gastropathy. There is no evidence of recurrence tumor. Patient also reported in 2019, her surgeon at [facility] said elevated chromogranin A level. Chromogranin A is very sensitive but nonspecific and is good marker for surveillance but not for screening/diagnostic purpose. He recommended to follow-up outpatient oncology clinic for gallium PET/CT. At this point, there is no clear-cut indication for any recurrence. Stool for enteric bacteriology panel is ordered but she did not had any stool after admission. 2. Hypomagnesemia, hypokalemia: Corrected. Magnesium was 1.4 corrected to 3.1. Repeat potassium 3.7. 3. Acute kidney injury, prerenal secondary to hypovolemia: Continue IV fluid. Creatinine improved from 1.66-1.11. Avoid nephrotoxins Home lisinopril and hydrochlorothiazide held. 4. Hypertension: Blood pressure is controlled. PRN Hydralazine ordered. Trend blood pressures. Tobacco abuse: Some day smoker. Counseled. DVT prophylaxis: Subcutaneous Lovenox. Clinical Impression(s) from Imaging Studies Abdomen/Pelvis CT 10/18/19 20:21 IMPRESSION: No suspicious solid organ abnormality, previous cholecystectomy No CT evidence of acute inflammatory process, appendix and visualized No free intraperitoneal fluid, air, or suspicious adenopathy Chest X-Ray 10/19/19 14:15 IMPRESSION: No acute pulmonary process Inpatient E&M: [id number] [facility] Hosp L2
[2019-10-19 10:01] LABS: Magnesium 3.1 mg/dL (1.6-2.6); Phosphorus 2.5 mg/dL (2.5-4.9)
[2019-10-19] MEDS: LORazepam 1 MG Tablet PO (12:52)
--- NOTE | 2019-10-19 13:00 | CASEMGMT ---
RN TAWANNA Face to Face with patient for initial transition planning/care coordination assessment. RN CM introduced self and role at [facility]. Patient lying in bed, alert and oriented. Patient willing to participate in assessment and is able to answer all questions appropriately. Care providers, pharmacy, and demographics verified. Patient wishes to discharge home, denies need for home health at this time. Patient states he has no further needs or concerns at this time. CM to follow for discharge planning needs that may arise. PCP: Ananth Specialists: Bert, oncology Preferred Pharmacy: [facility] Insurance: [employer] [facility] Prescription Benefit: yes Living Will/HPOA: none LNOK: daughter Living Arrangements: Patient lives alone in an apartment. Patient states she is independent at home. Transportation: friends DME/HHC: Patient state she has shower chair, walker, and grab bars at home. Patient denies previous HHC. Disposition Plan: Patient to discharge home with family support and follow-up plans in place. Yanely CHRISTIANSON, RN, CM
--- NOTE | 2019-10-19 13:05 | ONC.CON.INP2 ---
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 Her past medical history is notable for history of primary gastric neuroendocrine tumor status post laparoscopic partial gastrectomy and cholecystectomy in May 2017 at [facility]. Patient reports that her illness presented with nausea and vomiting and weight loss. Following resection she underwent annual surveillance with EGD (under the care of Dr. Rubi, last was November 2018 showing reactive gastropathy) and annual CAT scan (last was October 28 on current admission) and until then there had been no evidence of recurrent tumor. Patient reported in 2019 her surgeon at [facility] made her aware of an elevated chromogranin A level. Past Medical History: Chronic Problems (Last Reviewed 10/19/19 @ 03:[address] Robel Abrams MD) COPD (chronic obstructive pulmonary disease) (Chronic) Polycythemia (Chronic) Primary malignant neuroendocrine tumor of stomach (Chronic) Anxiety and depression (Chronic) Intermittent palpitations (Chronic) Essential (primary) hypertension (Chronic) Sick sinus syndrome (Chronic) Tobacco dependence syndrome (Chronic) Past Medical/Surgical History: Past Medical History - Most Recent Inpatient Visit Past Medical History Start: 10/19/19 00:07 Text: Status: Complete Freq: ONCE Protocol: Document 10/19/19 00:07 DC (Rec: 10/19/19 00:36 DC [id number]) BMI Required to complete PMH What is Patient's BMI 33.1 Past Medical History Unable History Recalled No Query Text:Pt Unable/Family Not Present Neurologic Medical History Hx Stroke/TIA No Hx Dementia/Alzheimer's No Hx Parkinson's Disease No Hx Seizures No Hx Multiple Sclerosis No: see note Hx Migraines Yes: occasionally Comments tested for MS but cannot do MRI d/t pacemaker so pt is not sure if she has it Cardiac Medical History VTE Present on Admission No Hx of Deep Vein Thrombosis/VTE/PE No Hx Hypertension Yes: on med Hx Chest Pain/Angina Yes: chest pain on and off always per pt. Hx Heart Attack No Hx Cardiac Surgery/Stents/Etc. No Hx Heart Failure Yes Hx Pacemaker/AICD Yes: dual pacemaker d/t sick sinus syndrome Hx Irregular Heartbeat and/or Afib No Hx Anticoagulant Therapy No Query Text:(Coumadin, Aspirin, Plavix, Xarelto, etc.) Hx Pain in Legs when Walking/Leg Cramps Yes: . Comments sees Dr. Keys Respiratory Medical History Hx COPD Yes: maybe Hx Emphysema No Hx Smoking Yes: quit 3 yrs ago Smoking Status Former smoker Tobacco Use Cigarettes Hx Smoking Cessation Date 02/08/17 Hx Smoking Cessation Counseling No Hx Smoking Exposure Yes Hx Tobacco Use in last 12 months No Hx of Pipe Smoking No Hx Sleep Apnea Yes: CPAP CPAP Yes BIPAP No STOP Results Positive GI Medical History Hx Ulcer No Hx Hepatitis No Hx Cirrhosis No Hx GI Bleed No Hx Unplanned Weight Loss No Genitourinary Medical History Indwelling Catheter in Place on Arrival/ No Admission Hx Renal Disease No Hx Dialysis No Musculoskeletal History Hx Arthritis Yes: in back Hx Rheumatoid Arthritis No Comments had back OR 3.5 years ago Endocrine Medical History Hx Diabetes No Hx Thyroid Disease Yes: on med Hematologic Medical History Hx of Blood Transfusion No Hx of Transfusion in last 3 Months No Ever experience any problems with No transfusion(s)? Hx of Preganancy in last 3 Months No Nurse Filling Out Transfusion & DCLARK Questions: Date: 10/19/19 Time: 00:35 Psycho/Social Medical History Hx Depression Yes Hx Anxiety Yes: at times Hx Behavior Disorder No Hx Alcohol Use No Hx Substance Use No Other Medical History Hx Blood Disorders No Hx Anemia Yes: iron supplement Hx Cancer Yes: NEURAL ENDOCRINE TUMOR THAT WAS CANCEROUS IN HER STOMACH Hx Drug Resistant Organism No Wound/Pressure Injury Present on Arrival No: denies /Admission Query Text:If yes, chart assessment in Shift/Clinical Findings Central Line/PICC/VAD Present on Arrival No /Admission Antibiotics within last 7 days? No Methicillin Resistant Staphylococcus aureus Screening Active MRSA No Risk for Readmission Number of Risk Factors 8 At Risk for Readmission Patient is At Risk For Readmission Patient is eligible for Call Back Y Past Medical History (Last Reviewed 10/19/19 @ 03:[address] Robel Abrams MD) Essential (primary) hypertension (Chronic) Sick sinus syndrome (Chronic) Tobacco dependence syndrome (Chronic) Abdominal pain (Chronic) Anemia (Chronic) Anxiety and depression (Chronic) Anxiety and depression (Chronic) Bone fracture (Chronic) Chronic lower back pain (Chronic) Chronic pain syndrome (Chronic) Familial combined hyperlipidemia (Chronic) GERD (gastroesophageal reflux disease) (Chronic) GERD (gastroesophageal reflux disease) (Chronic) Gabapentin overdose (Chronic) Heart murmur (Chronic) History of anxiety disorder (Chronic) History of pneumonia (Chronic) Hypoglycemia (Chronic) Hypothyroidism (Chronic) Hypothyroidism (Chronic) Neuroendocrine neoplasm of stomach (Chronic) Neuropathy (Chronic) Neuropathy (Chronic) ELOY (obstructive sleep apnea) (Chronic) Obesity (Chronic) Obstructive sleep apnea (Chronic) PTSD (post-traumatic stress disorder) (Chronic) PTSD (post-traumatic stress disorder) (Chronic) Sinus pause (Chronic) Vitamin D deficiency (Chronic) Past Surgical History (Last Reviewed 10/19/19 @ 03:[address] Robel Abrams MD) Presence of permanent cardiac pacemaker (Resolved 2013) History of appendectomy (Resolved) History of back surgery (Resolved) History of colonoscopy (Resolved) History of elbow surgery (Resolved) History of hysterectomy (Resolved) History of laparotomy (Resolved) History of resection of stomach (Resolved) Hx of cholecystectomy (Resolved) history excision neuroendocrine tumor (Resolved) Maternal Family History: Family History (Last Reviewed 10/18/19 @ 23:[address] Robel Abrams MD) Daughter Multiple sclerosis Father CAD (coronary artery disease) Heart disease Multiple sclerosis Grandfather Heart disease Uncle Heart disease Aunt No problems noted. Sister Colon cancer Mother Hypertension Family History: No pertinent history - Social History Lives: With Family Smoking Status: Former smoker Tobacco Use: Cigarettes Alcohol: None Drugs: None Allergies/Adverse Reactions: Allergy/AdvReac Type Severity Reaction Status Date / Time latex Allergy Intermediate skin Verified 10/18/19 20:04 irritation aspirin AdvReac Severe Nausea/Vom/ Verified 10/18/19 20:04 Diarrhea erythromycin base AdvReac Severe Vomiting,di Verified 10/18/19 20:04 [Erythromycin Base] arrhea NSAIDS (Non-Steroidal AdvReac Severe Vomiting,di Verified 10/18/19 20:04 Anti-Inflamma arrhea Review of Systems Constitutional:: Reports: Weakness, Fatigue, - - No flushing. Denies: Fever, Sweats, Weight loss, Appetite change, Chills Cardiovascular:: Reports: Dyspnea on exertion. Denies: Chest pain, Palpitations, Orthopnea, PND, Shortness of breath Respiratory: Reports: Shortness of breath upon exertion. Denies: Cough, Hemoptysis, Shortness of Breath, Wheezing Gastrointestinal:: Reports: Abdominal pain, Nausea, Vomiting - Resolved since admission, she is on IV fluids and clear liquids by mouth, Diarrhea - Chronic, months, recent worsening prior to admission, Hematochezia - Minor blood staining on toilet paper attributed to hemorrhoids, Hemorrhoids. Denies: Constipation Genitourinary: Denies: Dysuria, Hematuria, 15, Flank pain Musculoskeletal:: Denies: Back pain, Myalgia, Arthralgia Skin: Denies: Rash, Skin Changes, Wounds Neurological:: Denies: Headache, Dizziness, Visual changes, Tinnitus, Hearing loss Psychiatric: Denies: Anxiety, Depression, Homicidal Ideations, Suicidal Ideations Vital Signs Temperature 98.0 F 10/19/19 12:46 Temperature Source Temporal 10/19/19 12:46 Pulse Rate 60 10/19/19 12:46 Respiratory Rate 18 10/19/19 12:46 Respiratory Effort Non-Labored 10/19/19 01:18 Respiratory Depth Normal 10/19/19 01:18 Respiratory Pattern Normal 10/19/19 01:18 Blood Pressure 127/69 H 10/19/19 12:46 Blood Pressure Mean 88 10/19/19 12:46 Blood Pressure Source Monitor 10/19/19 12:46 Blood Pressure Position Semi-Fowlers 10/19/19 12:46 Blood Pressure Location Right Arm 10/19/19 12:46 Pulse Ox 100 10/19/19 12:46 Oxygen Delivery Method Room Air 10/19/19 12:46 - Physical Exam General: Alert, Oriented x3, No apparent distress, - - ECOG 0-1, obese HEENT: Atraumatic, PERRLA, EOMI, Normocephalic Oropharynx:: Dry mucosa Neck:: Supple, Trachea midline. Negative for: JVD, bilateral Cardiac:: Regular rate, Regular rhythm, Normal S1, Normal S2. Negative for: Murmur Lungs: Clear to auscultation, Excusion symmetrical. Negative for: Rhonchi, Wheezes Abdomen:: Soft, Non-tender, Non-distended. Negative for: Hepatosplenomegaly Extremities:: Negative for: Cyanosis, Edema Neurological: Neuro grossly intact Skin:: Negative for: Lesions, Rash, Petechiae, Ecchymosis Psychiatric:: Appropriate affect, Euthymic Lymphatics:: Negative for: Cervical lymphadenopathy, Supraclavicular lymphadenopathy Laboratory Data: Laboratory Tests 10/19/19 10/19/19 10/19/19 Range/Units 05:25 05:25 05:25 WBC 10.6 (4.4-11.0) K/mm3 RBC 3.89 L (4.2-5.4) M/mm3 Hgb 12.0 (12.0-15.0) g/dL Hct 35.9 L (37-47) % MCV 92.3 (81-99) fL MCH 30.8 (27.0-32.0) pg MCHC 33.4 (32-36) g/dL RDW Std Deviation 43.9 (35.1-43.9) fl RDW Coeff of Ross 13.1 (11.6-14.6) % Plt Count 228 (150-450) K/mm3 MPV 9.2 (6.2-12.0) fl Immature Gran % (Auto) 0.500 (0.0-0.9) % Neut % (Auto) 59.5 (47-70) % Lymph % (Auto) 30.8 (19-41) % [place] % (Auto) 6.7 (0-10) % Eos % (Auto) 2.2 (0-5) % Baso % (Auto) 0.3 (0-1) % Absolute Neuts (auto) 6.3 (2.0-7.7) X10^3/uL Absolute Lymphs (auto) 3.26 (0.83-4.51) X10^3/uL Nucleated RBC % 0 (0-5) % Sodium 142 (136-145) mmol/L Potassium 3.7 (3.5-5.1) mmol/L Chloride 111 H (98-107) mmol/L Carbon Dioxide 26.0 (21.0-32.0) mmol/L Anion Gap 5 (5-15) BUN 24 H (7-18) mg/dL Creatinine 1.11 H (0.55-1.02) mg/dL Estim Creat Clear Calc 45.82 ml/min Est GFR (MDRD) Af Amer 66 (>60) mL/min Est GFR (MDRD) Non-Af 54 L (>60) mL/min BUN/Creatinine Ratio 21.6 H (10-20) RATIO Glucose 112 H (74-106) mg/dL Calcium 8.3 L (8.5-10.1) mg/dL Phosphorus 2.5 (2.5-4.9) mg/dL Magnesium 3.1 H (1.6-2.6) mg/dL Total Bilirubin (0.20-1.00) mg/dL AST (15-37) U/L ALT (13-56) U/L Alkaline Phosphatase (45-117) U/L Total Protein (6.4-8.2) g/dL Albumin (3.2-5.0) g/dL Globulin (2.2-4.2) g/dL Albumin/Globulin Ratio (0.9-2.4) RATIO Lipase (73-393) U/L TSH (0.358-3.74) uIU/mL Urine Color (Yellow) Urine Clarity (Clear) Urine pH (5.0 - 8.0) Ur Specific [place] (1.002-1.030) Urine Protein (Negative) mg/dl Urine Glucose (UA) (Normal) mg/dl Urine Ketones (Negative) mg/dl Urine Occult Blood (Negative) /ul Urine Nitrite (Negative) Urine Bilirubin (Negative) mg/dL Urine Urobilinogen (Normal) mg/dl Ur Leukocyte Esterase (Negative) /ul Urine RBC (0-5) /hpf Urine WBC (0-5) /hpf Ur Squamous Epith Cells (5-10) /hpf Ur Transition Epith Cell (0-5) /hpf Urine Bacteria (None Seen) /hpf Urine Mucus (<or=2+) /hpf 10/19/19 10/18/19 10/18/19 Range/Units 00:25 20:45 20:40 WBC (4.4-11.0) K/mm3 RBC (4.2-5.4) M/mm3 Hgb (12.0-15.0) g/dL Hct (37-47) % MCV (81-99) fL MCH (27.0-32.0) pg MCHC (32-36) g/dL RDW Std Deviation (35.1-43.9) fl RDW Coeff of Ross (11.6-14.6) % Plt Count (150-450) K/mm3 MPV (6.2-12.0) fl Immature Gran % (Auto) (0.0-0.9) % Neut % (Auto) (47-70) % Lymph % (Auto) (19-41) % [place] % (Auto) (0-10) % Eos % (Auto) (0-5) % Baso % (Auto) (0-1) % Absolute Neuts (auto) (2.0-7.7) X10^3/uL Absolute Lymphs (auto) (0.83-4.51) X10^3/uL Nucleated RBC % (0-5) % Sodium 139 (136-145) mmol/L Potassium 2.8 L (3.5-5.1) mmol/L Chloride 107 (98-107) mmol/L Carbon Dioxide 25.0 (21.0-32.0) mmol/L Anion Gap 7 (5-15) BUN 35 H (7-18) mg/dL Creatinine 1.66 H (0.55-1.02) mg/dL Estim Creat Clear Calc 30.64 ml/min Est GFR (MDRD) Af Amer 41 L (>60) mL/min Est GFR (MDRD) Non-Af 34 L (>60) mL/min BUN/Creatinine Ratio 21.1 H (10-20) RATIO Glucose 107 H (74-106) mg/dL Calcium 8.9 (8.5-10.1) mg/dL Phosphorus (2.5-4.9) mg/dL Magnesium 1.4 L (1.6-2.6) mg/dL Total Bilirubin 0.20 (0.20-1.00) mg/dL AST 17 (15-37) U/L ALT 21 (13-56) U/L Alkaline Phosphatase 108 (45-117) U/L Total Protein 7.7 (6.4-8.2) g/dL Albumin 3.5 (3.2-5.0) g/dL Globulin 4.2 (2.2-4.2) g/dL Albumin/Globulin Ratio 0.8 L (0.9-2.4) RATIO Lipase 133 (73-393) U/L TSH 2.03 (0.358-3.74) uIU/mL Urine Color Yellow (Yellow) Urine Clarity Clear (Clear) Urine pH 6.0 (5.0 - 8.0) Ur Specific [place] 1.010 (1.002-1.030) Urine Protein Negative (Negative) mg/dl Urine Glucose (UA) Normal (Normal) mg/dl Urine Ketones Negative (Negative) mg/dl Urine Occult Blood Negative (Negative) /ul Urine Nitrite Negative (Negative) Urine Bilirubin Negative (Negative) mg/dL Urine Urobilinogen Normal (Normal) mg/dl Ur Leukocyte Esterase Negative (Negative) /ul Urine RBC 0 SEEN (0-5) /hpf Urine WBC 0 SEEN (0-5) /hpf Ur Squamous Epith Cells 0-5 SEEN (5-10) /hpf Ur Transition Epith Cell 0-5 SEEN (0-5) /hpf Urine Bacteria 0 SEEN (None Seen) /hpf Urine Mucus 0 SEEN (<or=2+) /hpf 10/18/19 Range/Units 20:40 WBC 13.2 H (4.4-11.0) K/mm3 RBC 4.40 (4.2-5.4) M/mm3 Hgb 13.7 (12.0-15.0) g/dL Hct 40.2 (37-47) % MCV 91.4 (81-99) fL MCH 31.1 (27.0-32.0) pg MCHC 34.1 (32-36) g/dL RDW Std Deviation 43.6 (35.1-43.9) fl RDW Coeff of Ross 13.1 (11.6-14.6) % Plt Count 265 (150-450) K/mm3 MPV 9.4 (6.2-12.0) fl Immature Gran % (Auto) 0.900 (0.0-0.9) % Neut % (Auto) 62.3 (47-70) % Lymph % (Auto) 27.7 (19-41) % [place] % (Auto) 7.1 (0-10) % Eos % (Auto) 1.7 (0-5) % Baso % (Auto) 0.3 (0-1) % Absolute Neuts (auto) 8.2 H (2.0-7.7) X10^3/uL Absolute Lymphs (auto) 3.67 (0.83-4.51) X10^3/uL Nucleated RBC % 0 (0-5) % Sodium (136-145) mmol/L Potassium (3.5-5.1) mmol/L Chloride (98-107) mmol/L Carbon Dioxide (21.0-32.0) mmol/L Anion Gap (5-15) BUN (7-18) mg/dL Creatinine (0.55-1.02) mg/dL Estim Creat Clear Calc ml/min Est GFR (MDRD) Af Amer (>60) mL/min Est GFR (MDRD) Non-Af (>60) mL/min BUN/Creatinine Ratio (10-20) RATIO Glucose (74-106) mg/dL Calcium (8.5-10.1) mg/dL Phosphorus (2.5-4.9) mg/dL Magnesium (1.6-2.6) mg/dL Total Bilirubin (0.20-1.00) mg/dL AST (15-37) U/L ALT (13-56) U/L Alkaline Phosphatase (45-117) U/L Total Protein (6.4-8.2) g/dL Albumin (3.2-5.0) g/dL Globulin (2.2-4.2) g/dL Albumin/Globulin Ratio (0.9-2.4) RATIO Lipase (73-393) U/L TSH (0.358-3.74) uIU/mL Urine Color (Yellow) Urine Clarity (Clear) Urine pH (5.0 - 8.0) Ur Specific [place] (1.002-1.030) Urine Protein (Negative) mg/dl Urine Glucose (UA) (Normal) mg/dl Urine Ketones (Negative) mg/dl Urine Occult Blood (Negative) /ul Urine Nitrite (Negative) Urine Bilirubin (Negative) mg/dL Urine Urobilinogen (Normal) mg/dl Ur Leukocyte Esterase (Negative) /ul Urine RBC (0-5) /hpf Urine WBC (0-5) /hpf Ur Squamous Epith Cells (5-10) /hpf Ur Transition Epith Cell (0-5) /hpf Urine Bacteria (None Seen) /hpf Urine Mucus (<or=2+) /hpf Diagnostic Data: Diagnostic Data I personally reviewed her CT scan images and concur with the report Abdomen/Pelvis CT 10/18/19 20:21 IMPRESSION: No suspicious solid organ abnormality, previous cholecystectomy No CT evidence of acute inflammatory process, appendix and visualized No free intraperitoneal fluid, air, or suspicious adenopathy Electronically Signed: Murphy Dobbs MD at 22:33 EDT , Service support , Assessment and Plan 54-year-old female admitted with acute on chronic diarrhea complicated with nausea, vomiting, muscle cramps and electrolyte abnormalities. She is improving on conservative management with IV fluids and is tolerated oral liquid diet well. 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 Her last EGD was November 2018 under the care of Dr. Rubi and her last CT scan of the abdomen and pelvis was October 18, 2019 on current admission showing no evidence to suggest metastatic disease or local regional recurrence. In 2019 patient reports that she was informed by her surgeon that she had an elevated chromogranin A level. According to her no further work-up was done. These records have been requested from [facility] and has not been available for review yet. 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 Type 3 (sporadic) gastric NETs are generally treated by partial or total gastrectomy with local lymph node resection . The risk of alison metastases is dependent on tumor size and depth. Metastases occur in less than 10 percent of tumors >2 cm. Recommendations: 1. Symptomatic management for nausea, vomiting and diarrhea, correct any electrolyte imbalance. 2. Chromogranin A testing is very sensitive and nonspecific, elevated and a long list of conditions both benign and malignant including smokers, and therefore is not recommended for screening for recurrent carcinoid tumors. It is of value in following patients with the pathologically established diagnosis. 3. Measurement of 24-hour urine 5-HIAA in addition to being cumbersome requiring strict collection conditions, is generally not useful in foregut (upper GI and lung) NET. 4. Where available, functional imaging with Gallium Ga-68 DOTATATE positron emission tomography (PET)/CT is preferred over indium-111 pentetreotide (OctreoScan) due to its greater sensitivity. Following discharge and follow-up in outpatient oncology clinic will request insurance authorization, provided none of these tests were recently done at [facility] (records requested not received). 5. Ordered chest x-ray (last was October 2018) to rule out any suspicious lesions there. Impression and recommendations discussed with patient. Raegan Noel MD Vocational Rehabilitation Teacher, [facility] Divisions of Medical Oncology & Hematology Department of Internal Medicine [place] [phone] This note was generated using a voice recognition system software. Although it was reviewed by the author prior to finalization, it may still contain incorrect words, spelling, and punctuation that were not noted when reviewing prior to saving. If a clinically significant typo or inaccurately typed phrase is noted, please notify the author. Medications: Medications Added to Medication List This Visit Category Date Time Status Duloxetine Hcl [Cymbalta] Med 10/19/19 10:00 Active 120 mg PO DAILY Enoxaparin [Lovenox] Med 10/19/19 10:00 Active 40 mg SC DAILY Ensure Clear Med 10/19/19 10:00 Active 120 ml PO 4X/DAY Levothyroxine [Synthroid] Med 10/19/19 06:00 Active 25 mcg PO DAILY@0600 Metoprolol Tartrate [Lopressor (Beta Mirna)] Med 10/19/19 10:00 Active 50 mg PO BID Pantoprazole Sodium [Protonix] Med 10/19/19 10:00 Active 40 mg PO DAILY busPIRone [Buspar] Med 10/19/19 06:00 Active 5 mg PO TID Primary Care Provider: Dr. Charla Wadsworth MD Referring Provider: Dr. Robel Abrams MD
--- NOTE | 2019-10-19 14:15 | RAD_ITS ---
STUDY: X-RAY CHEST REASON FOR EXAM: Female, 54 years old. Nausea, vomiting, diarrhea, hx of stomach carcinoid tumor TECHNIQUE: 2 AP portable views COMPARISON: 11/04/2018 FINDINGS: EKG leads overlie the chest. Stable appearance of a left subclavian pacemaker The lungs are clear and expanded. There is no demonstrated pleural abnormality. Normal size heart. Normal mediastinum and archana. Normal visualized pulmonary arteries. Normal visualized aortic arch and descending thoracic aorta. Normal visualized thoracic spine. Normal visualized ribs, clavicles, and shoulders. There is no demonstrated abnormality of the visualized soft tissue structures of the upper abdomen. RAD/Chest 1 View IMPRESSION: No acute pulmonary process Electronically Signed: Murphy Dobbs MD at 16:23 EDT , Service support ,
[2019-10-19] MEDS: Scopolamine 1mg/72hr Patch 1 PATCH TD (16:25)
[2019-10-20] VITALS (7 sets, daily range): BP systolic 98–130; BP diastolic 66–76; PULSE 56–79; RESP 16–18; TEMP 37.1–37.2; O2SAT 96–98
[2019-10-20] MEDS: LORazepam 1 MG Tablet PO (00:31)
[2019-10-20] MEDS: Morphine 2 MG/ML Syringe 1 MG IV ×3 (02:48→08:57)
[2019-10-20] MEDS: busPIRone 5 MG Tablet PO (05:45)
[2019-10-20] MEDS: Lactated Ringers 1,000 ML 100 ML IV (05:45)
[2019-10-20] MEDS: Levothyroxine 25 MCG TABLET PO (05:45)
[2019-10-20 06:00] LABS: Anion Gap 5 (5-15); BUN 15 mg/dL (7-18); BUN/Creat Ratio 18.2 RATIO (10-20); Calcium,Total 8.5 mg/dL (8.5-10.1); Chloride 111 mmol/L (98-107); Creatinine, Serum 0.82 mg/dL (0.55-1.02); EST Glomerular Filtration Rate 77 mL/min (>60); Est Glom Filt Rate - Afr Amer 93 mL/min (>60); Estimated Creatinine Clearance 62.03 ml/min; Glucose 91 mg/dL (74-106); Potassium 3.6 mmol/L (3.5-5.1); Sodium Level 144 mmol/L (136-145)
[2019-10-20] MEDS: Ondansetron 4 MG/2 ML Vial IV (07:29)
[2019-10-20] MEDS: Metoprolol Tartrate 50 MG Tablet PO (09:00)
[2019-10-20] MEDS: Pantoprazole Sodium 40 MG Tablet PO (09:00)
[2019-10-20] MEDS: Enoxaparin 40 MG/0.4 ML Syringe SC (09:00)
[2019-10-20] MEDS: DULoxetine Hcl 60 MG Capsule 120 MG PO (09:00)
--- NOTE | 2019-10-20 09:30 | DCINST_ITS ---
- Discharge Diagnoses Current Active Problems: Current Active and Chronic Problems (Last Reviewed 10/19/19 @ 03:[address] Robel Abrams MD) Nausea, vomiting and diarrhea (Acute) You will use the following diet at home:: Regular Your food should be the consistency of: Regular Discharge Activity: Return to Normal Activity Weight Bearing Status: Weight bearing as tolerated Call your doctor if you observe: Fever of 101 or Higher, Coldness, Increased Pain, Numbness or Tingling, Change in Color, Inability to urinate, Inability to have a bowel movement, Shortness of breath, Dizziness, Fainting spells, Swelling in the ankles, Chest pain, Prolonged hiccoughing, Increased palpitations (irregular heartbeat), Calf discomfort, Uncontrolled pain Allergies/Adverse Reactions: Allergies latex Allergy (Intermediate, Verified 10/18/19 20:04) skin irritation aspirin Adverse Reaction (Severe, Verified 10/18/19 20:04) Nausea/Vom/Diarrhea erythromycin base [Erythromycin Base] Adverse Reaction (Severe, Verified 10/18/19 20:04) Vomiting,diarrhea NSAIDS (Non-Steroidal Anti-Inflamma Adverse Reaction (Severe, Verified 10/18/19 20:04) Vomiting,diarrhea Medications to take at Discharge Duloxetine Hcl [Cymbalta] 120 mg PO DAILY 03/28/15 buspirone 5 mg tablet 5 mg PO TID #90 tab 02/03/19 hydrochlorothiazide 25 mg tablet 25 mg PO DAILY #30 tab 06/05/19 Lorazepam 1 mg PO TID PRN PRN 06/30/19 Zolpidem Tartrate [Ambien] 10 mg PO QHS 06/30/19 promethazine 12.5 mg tablet 12.5 mg PO BID PRN #30 tab 08/07/19 omeprazole 40 mg capsule,delayed release 40 mg PO DAILY #90 cap 09/10/19 metoprolol tartrate 50 mg tablet 50 mg PO BID #180 tab 09/15/19 Levothyroxine Sodium [Synthroid] 25 mcg PO DAILY 09/29/19 lisinopril 40 mg tablet 40 mg PO DAILY #90 tab 10/02/19 methocarbamol 750 mg tablet 750 mg PO BID PRN #180 tab 10/02/19 Primary Care Physician: Charla Wadsworth MD [Primary Care Provider] - Please follow up with your Primary Care Physician in: in 2 weeks Test Results: Test results from this visit will be discussed in further detail at your follow- up appointment, if applicable. Please Follow Up With: all TORRES When: as scheduled with Gallium Ga-68 DOTATATE positron emission tomography (PET)
--- NOTE | 2019-10-20 09:37 | PCM.DC.SUM ---
Discharge Date and Diagnosis Date of Admission: 10/18/19 Date of Discharge: 10/20/19 - Primary Discharge Diagnosis Acute Problems: Active Problems (Last Reviewed 10/19/19 @ 03:[address] 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 Robel Abrams MD) COPD (chronic obstructive pulmonary disease) (Chronic) Polycythemia (Chronic) Primary malignant neuroendocrine tumor of stomach (Chronic) Anxiety and depression (Chronic) Intermittent palpitations (Chronic) Essential (primary) hypertension (Chronic) Sick sinus syndrome (Chronic) Tobacco dependence syndrome (Chronic) Hospital Course and Treatment Operations: None Summary of Care Provided: [] The patient is a 54 year old F with a significant history of neuroendocrine tumor status post partial gastrectomy; sick sinus syndrome status post pacemaker; cholecystectomy and anxiety disorder was admitted with nausea, vomiting and diarrhea, diaphoresis, cramps in upper extremities and right upper quadrant pain with electrolyte abnormality and acute kidney injury. 1. Nausea, vomiting and diarrhea suggestive of acute gastroenteritis: She has history of primary gastric neuroendocrine tumor. Discussed with oncologist. As per him, it does not seem recurrence of neuroendocrine tumor as she had laparoscopic partial gastrectomy and cholecystectomy in May 2017 at [facility]. She follows Dr. Rubi. She gets annual surveillance CT scan and EGD by him. Last one was in November 2018 which showed reactive gastropathy. There is no evidence of recurrence tumor. Patient also reported in 2019, her surgeon at [facility] said elevated chromogranin A level. As per the patient chromogranin level was 3000 last year and was much more higher than that prior to surgery. Chromogranin A is very sensitive but nonspecific and is good marker for surveillance but not for screening/diagnostic purpose. He recommended to follow-up outpatient oncology clinic for gallium PET/CT. At this point, there is no clear-cut indication for any recurrence. Follow-up with GI Dr. Mack for further work-up, possible irritable bowel syndrome, diarrhea predominant. 2. Hypomagnesemia, hypokalemia: Corrected. Magnesium was 1.4 corrected to 3.1. Repeat potassium 3.7. Electrolyte abnormality corrected. 3. Acute kidney injury, prerenal secondary to hypovolemia: Continue IV fluid. Creatinine improved from 1.66- 0.77. Resolved. 4. Hypertension: Blood pressure is controlled. Tobacco abuse: Some day smoker. Counseled. DVT prophylaxis: Subcutaneous Lovenox. Discharge medication reconciliation done. Discharge follow-up instructions completed. Discharge process discussed with the patient and all questions were answered to patient's satisfaction. Total time spent, exact 35 minutes on discharge meds reconciliation, examination, coordination of care with nurses and ancillary staff, review of imaging and blood test and discussion with the patient on follow-up instructions Clinical Impression(s) from Imaging Studies Abdomen/Pelvis CT 10/18/19 20:21 IMPRESSION: No suspicious solid organ abnormality, previous cholecystectomy No CT evidence of acute inflammatory process, appendix and visualized No free intraperitoneal fluid, air, or suspicious adenopathy Chest X-Ray 10/19/19 14:15 IMPRESSION: No acute pulmonary process Objective: Patient still has some diarrhea and abdominal cramps but is getting better. Patient has chronic diarrhea for about 2 months and she also has history of anxiety and nervousness, raises concern for irritable bowel syndrome. Physical exam General: Alert, Oriented x3, Cooperative HEENT: Atraumatic, PERRLA, EOMI, Normocephalic Oral: No Gingival or Mucosal Lesions/ Ulcerations Neck: Supple, No JVD, Negative Carotid Bruits Lungs: Air entry equal in bilateral lung bases. No crepitation/rhonchi Cardiovascular: Regular rate, Regular Rhythm, Normal S1, Normal S2, No murmurs Abdomen: Bowel Sounds Present, Soft, mild tenderness in epigastrium and right upper quadrant, Non-Distended : No renal angle tenderness. No suprapubic tenderness. Extremities: No edema, Capillary Refill Less than 3 Seconds Skin: No rashes, No breakdown Musculoskeletal: No Tenderness to Palpation of Joints or Extremities Neurological: Cranial nerves II-XII grossly intact, Deep Tendon Reflexes 2+/4 and Symmetrical, Neuro grossly intact Psych/Mental Status: Normal Affect, Appropriate. - Physical Exam Vitals/I&O's: Vital Signs Temp Pulse Resp BP Pulse Ox 98.8 F 79 18 130/76 H 98 10/20/19 07:33 10/20/19 09:00 10/20/19 07:33 10/20/19 07:33 10/20/19 07:33 Oxygen Delivery Method Room Air Weight: 180 lb 15.992 oz Body Mass Index (BMI) 33.0 Finger Stick Blood Glucose 92 Intake and Output for Last 24 Hours 10/18/19 10/19/19 10/20/19 23:59 23:59 23:59 Intake Total 1000 / 1000 3313.33 / 3313.33 811.67 / 811.67 Output Total 404 / 404 400 / 400 Balance 1000 / 1000 2909.33 / 2909.33 411.67 / 411.67 Microbiology Past 72 Hours 10/19/19 20:45 Stool Stool Lactoferrin - Final 10/19/19 20:45 Stool Stool Occult Blood (MARIO ALBERTO) - Final Laboratory Results 10/19/19 05:25: Phosphorus 2.5, Magnesium 3.1 H 10/20/19 05:14: Sodium 144, Potassium 3.6, Chloride 111 H, Carbon Dioxide 28.0, Anion Gap 5, BUN 15, Creatinine 0.82, Estim Creat Clear Calc 62.03, Est GFR (MDRD) Af Amer 93, Est GFR (MDRD) Non-Af 77, BUN/Creatinine Ratio 18.2, Glucose 91, Calcium 8.5, Magnesium 2.0 Current Medications Buspirone HCl (Buspar) 5 mg PO TID [facility] Last Admin: 10/20/19 05:45 Dose: 5 mg Documented by: Duloxetine HCl (Cymbalta) 120 mg PO DAILY [facility] Last Admin: 10/20/19 09:00 Dose: 120 mg Documented by: Enoxaparin Sodium (Lovenox) 40 mg SC DAILY [facility] Last Admin: 10/20/19 09:00 Dose: 40 mg Documented by: Hydralazine HCl (Apresoline Iv) 10 mg IV Q4H PRN PRN PRN Reason: SBP > 160 Lactated Ringer's () 1,000 mls @ 100 mls/hr IV .Q10H [facility] Last Admin: 10/20/19 05:45 Dose: 100 mls/hr Documented by: Levothyroxine Sodium (Synthroid) 25 mcg PO DAILY@0600 [facility] Last Admin: 10/20/19 05:45 Dose: 25 mcg Documented by: Lorazepam (Ativan) 1 mg PO TID PRN PRN PRN Reason: ANXIETY Last Admin: 10/20/19 00:31 Dose: 1 mg Documented by: Methocarbamol (Methocarbamol) 750 mg PO BID PRN PRN PRN Reason: muscle spasticity Metoprolol Tartrate (Lopressor (Beta Mirna)) 50 mg PO BID [facility] Last Admin: 10/20/19 09:00 Dose: 50 mg Documented by: Morphine Sulfate () 1 mg IV Q3H PRN PRN PRN Reason: Pain Score 6-10/10 Last Admin: 10/20/19 08:57 Dose: 1 mg Documented by: Nutritional Formula (Lactose Free) (Ensure Clear) 120 ml PO 4X/DAY [facility] Last Admin: 10/20/19 09:00 Dose: Not Given Documented by: Ondansetron HCl (Zofran) 4 mg IV Q8H PRN PRN PRN Reason: NAUSEA/VOMITING Last Admin: 10/20/19 07:29 Dose: 4 mg Documented by: Pantoprazole Sodium (Protonix) 40 mg PO DAILY [facility] Last Admin: 10/20/19 09:00 Dose: 40 mg Documented by: Prochlorperazine Edisylate (Compazine Iv) 5 mg IV Q4H PRN PRN PRN Reason: Breakthrough nausea/vomiting Last Admin: 10/19/19 09:02 Dose: 5 mg Documented by: Promethazine HCl (Phenergan Tablet) 12.5 mg PO BID PRN PRN PRN Reason: nausea/vomiting Last Admin: 10/19/19 08:06 Dose: 12.5 mg Documented by: Scopolamine HBr (Transderm-Scop) 1 patch TD Q3D [facility] Last Admin: 10/19/19 16:25 Dose: 1 patch Documented by: Sodium Chloride () 10 - 40 ml IV UD PRN PRN Reason: SALINE FLUSH Last Admin: 10/19/19 09:03 Dose: 10 ml Documented by: Zolpidem Tartrate (Ambien (Generic)) 5 mg PO QHS [facility] Last Admin: 10/19/19 21:39 Dose: 5 mg Documented by: Discharge Activity: Return to Normal Activity Weight Bearing Status: Weight bearing as tolerated Call your doctor if you observe: Fever of 101 or Higher, Coldness, Increased Pain, Numbness or Tingling, Change in Color, Inability to urinate, Inability to have a bowel movement, Shortness of breath, Dizziness, Fainting spells, Swelling in the ankles, Chest pain, Prolonged hiccoughing, Increased palpitations (irregular heartbeat), Calf discomfort, Uncontrolled pain Home Medications: Medications to take at Discharge Duloxetine Hcl [Cymbalta] 120 mg PO DAILY 03/28/15 buspirone 5 mg tablet 5 mg PO TID #90 tab 02/03/19 hydrochlorothiazide 25 mg tablet 25 mg PO DAILY #30 tab 06/05/19 Lorazepam 1 mg PO TID PRN PRN 06/30/19 Zolpidem Tartrate [Ambien] 10 mg PO QHS 06/30/19 promethazine 12.5 mg tablet 12.5 mg PO BID PRN #30 tab 08/07/19 omeprazole 40 mg capsule,delayed release 40 mg PO DAILY #90 cap 09/10/19 metoprolol tartrate 50 mg tablet 50 mg PO BID #180 tab 09/15/19 Levothyroxine Sodium [Synthroid] 25 mcg PO DAILY 09/29/19 lisinopril 40 mg tablet 40 mg PO DAILY #90 tab 10/02/19 methocarbamol 750 mg tablet 750 mg PO BID PRN #180 tab 10/02/19 Primary Care Physician: Charla Wadsworth MD [Primary Care Provider] - Please follow up with your Primary Care Physician in: in 2 weeks Please Follow Up With: all TORRES When: as scheduled with Gallium Ga-68 DOTATATE positron emission tomography (PET) Medical Necessity - Tobacco Use Smoking Status: Former smoker Tobacco Use: Cigarettes Meaningful Use Info Meaningful Use Diagnoses (Choose all that apply): None applicable Inpatient E&M: [id number] [facility]
--- NOTE | 2019-10-20 10:49 | PHA.DC.MR ---
Pharmacy Service has performed discharge medication reconciliation for this patient. The patient's discharge medication list was reviewed for discrepancies and discrepancies were resolved. Home Medications Duloxetine Hcl [Cymbalta] 120 mg PO DAILY 03/28/15 buspirone 5 mg tablet 5 mg PO TID #90 tab 02/03/19 hydrochlorothiazide 25 mg tablet 25 mg PO DAILY #30 tab 06/05/19 Lorazepam 1 mg PO TID PRN PRN 06/30/19 Zolpidem Tartrate [Ambien] 10 mg PO QHS 06/30/19 promethazine 12.5 mg tablet 12.5 mg PO BID PRN #30 tab 08/07/19 omeprazole 40 mg capsule,delayed release 40 mg PO DAILY #90 cap 09/10/19 metoprolol tartrate 50 mg tablet 50 mg PO BID #180 tab 09/15/19 Levothyroxine Sodium [Synthroid] 25 mcg PO DAILY 09/29/19 lisinopril 40 mg tablet 40 mg PO DAILY #90 tab 10/02/19 methocarbamol 750 mg tablet 750 mg PO BID PRN #180 tab 10/02/19
--- NOTE | 2019-10-22 13:05 | CASEMGMT ---
Addendum entered by Vishal Simon 10/23/19 11:03: Call placed back to pt to inform her [facility] may be able to come see her today. Pt states, My nausea, my vomiting, my diarrhea, and my pain are not under control and she inquired if she should just go to ER. AKIKO STACY informed her that that is her choice if she feels she needs to go to ER, or if [facility] nurse could come see her today, they could evaluate her and then could advise her to go to ER if they were not able to help manage her symptoms. Pt states she is just going to come to the ER. She states her friend is with her now and she is going to see if her friends' boyfriend can come and help her to get into the car and bring her to the ER. She states if he is unable to bring her in, that she will call [employer] to see if she can get transportation through them. Pt states if unable to do either of these, she will call the squad to bring her to ER. Call placed back to [facility] and she was made aware pt states is coming to ER. Addendum entered by Vishal Simon 10/23/19 10:13: Call received from Pau[facility] who states pt called her and requested to speak with this AKIKO STACY. Call placed to pt at this time. Pt states Dr Wadsworth's office cancelled her appt for today d/t she had COVID testing and results are pending. Pt states she is still having diarrhea, is weak, and is concerned her K+ level will continue to drop. She states Dr Wadsworth's office mentioned a virtual visit with them, but she states her insurance CM just recently informed her that virtual visits are no longer covered, so she has financial concerns w/doing a virtual visit. She also states she has cancelled the transportation thru [employer] to the appt with Dr Wadsworth and does not know if she would be able to get transportation if she was able to see Dr Wadsworth today. She states she also has concerns w/calling the squad to bring her to the hospital d/t her [id number] cost for the ambulance. She states her main concern is that her K+ level is going to go too low and would like to have it checked. Call placed back to [facility] and explained pt's above stated concerns and inquired if [facility] could possibly start care today. Paulette states she will check into this and call this RN TAWANNA back. Original Note: RN TAWANNA Discharge Follow-Up Phone Call. Violeta: 14 Strata: 4 Discharge Date: 10/20/19 Adm Dx: N/V/D Call to pt to inquire about how she has been doing since being discharged from the hospital. She states she is continuing to have N/V/D and was just back in the ER this morning d/t this. She was discharged home w/new script for Promethazine 25 mg, which she states is a higher strength than she has @ home and is hoping it will help alleviate her symptoms better. She states she was able to get in for an earlier appt with Dr Wadsworth and it is scheduled for tomorrow 10/21 @ 2:30 PM. She states she is not sleeping well and d/t her symptoms she is feeling more fatiqued and has been using her walker. She lives alone but states she does have a friend who comes to help her when she is able. Pt states one of her daughters is an [employer] and she was just talking with her prior to this RN TAWANNA calling her and states they are looking at options of her maybe moving closer to family or even an Assisted Living facility, but states this is more for long-term plans. She states for now in having a nurse come check on her @ home once a week. Discussed options of [facility] and she states she would like this. Pt states would like [facility]. Call placed to [facility] and referral made. She is aware pt was discharged from [facility] 10/19 and is home now. She states they are able to accept pt and start of care would be Sat or Sun. Call placed back to pt and she was made aware [facility] able to accept her and start of care would be over the weekend and that someone from [facility] would contact her to schedule this. Pt provided /[facility] phone number. Pt voices appreciation and states, I feel so relieved now. Thank you so much. Pt denies having any other questions/concerns/needs. AKIKO STACY thanked pt for choosing [facility]. Dianna CHRISTIANSON RN, CM
== END 2019-10-20 11:29 | disposition home or self-care (01) | DRG 641 ==
LOC: ED 20:11 → MS3 23:16
PROVIDERS: Admitting Provider Hospitalist; Emergency Provider Student in an Organized Health Care Education/Training Program; PCP Internal Medicine; Referring Provider Hospitalist; Visit Provider Internal Medicine
DX: E86.1 Hypovolemia (principal); N17.9 Acute kidney failure, unspecified; K58.0 Irritable bowel syndrome with diarrhea; E87.6 Hypokalemia; E83.42 Hypomagnesemia; I49.5 Sick sinus syndrome; J44.9 Chronic obstructive pulmonary disease, unspecified; I10 Essential (primary) hypertension; G89.4 Chronic pain syndrome; E03.9 Hypothyroidism, unspecified; E78.49 Other hyperlipidemia; D64.9 Anemia, unspecified; G47.33 Obstructive sleep apnea (adult) (pediatric); F32.9 Major depressive disorder, single episode, unspecified; F41.9 Anxiety disorder, unspecified; E66.9 Obesity, unspecified; Z79.899 Other long term (current) drug therapy; Z79.890 Hormone replacement therapy; Z95.0 Presence of cardiac pacemaker; Z90.3 Acquired absence of stomach [part of]; Z90.49 Acquired absence of other specified parts of digestive tract; Z68.33 Body mass index [BMI] 33.0-33.9, adult; Z85.028 Personal history of other malignant neoplasm of stomach; Z87.891 Personal history of nicotine dependence
CPT/HCPCS: 36415; 71045; 74176; 80048; 80053; 81001; 82274; 83630; 83690; 83735; 84100; 84443; 85025; 87506; 93005; 97162; 97166; 97802; 99285; J7030; J7120; A4216; J2405

== ENCOUNTER 2019-10-22 06:36 | Emergency (ER) | payer MEDICARE, MEDICAID, SELFPAY ==
[2019-10-20 09:50] VITALS: BMI 33.0
[2019-10-22 06:37] VITALS: BP 183/98; PULSE 77; RESP 18; TEMP 38; O2SAT 97; BMI 33.7
--- NOTE | 2019-10-22 07:20 | ED.DCSUM_ITS ---
History of Present Illness Chief Complaint: Nausea/Vomiting/Diarrhea Informant: Patient Onset: Days - 2 Context: Gradual Onset Timing: Continuous Quality: watery nonbloody diarrhea, occasional nonbloody emesis Location: RUQ pain Current Severity: Mild Maximum Severity: Moderate Worsened by: vomiting Relieved by: nothing Associated Symptoms: LLE pain, fever, chronic low back pain; no other new sx Narrative: Patient was discharged from the hospital 2 days ago, presenting now with multiple symptoms/complaints. She has chronic abdominal pain for over a year, and a history of neuroendocrine tumor that was resected along with her gallbladder. She states she is following up with her doctor who is doing another scan to evaluate for repeat neuroendocrine tumor. She states she has had diarrhea for over 6 weeks. She states it occurred while in the hospital but prior to being discharged restarted again, and also while in the hospital she started having discomfort in her left hip area down to her knee and that is bothering her worse now, hurts worse to bear weight, using a walker to get around. She states that she developed a fever of 101 last night hence coming in this morning. Other than the fever, she has no new symptoms. She states she has had problems in her low back and her hip in the past. She does not know specifics. She does not have any new swelling in the leg. She was anticoagulated on Lovenox throughout her admission and not discharged home on anticoagulants since she had no reason to be. - Past Medical History (1) Anxiety and depression Status: Chronic (2) COPD (chronic obstructive pulmonary disease) Status: Chronic (3) Essential (primary) hypertension Status: Chronic (4) Polycythemia Status: Chronic (5) Primary malignant neuroendocrine tumor of stomach Status: Chronic (6) Sick sinus syndrome Status: Chronic (7) Presence of permanent cardiac pacemaker Status: Resolved Comment: 2003, Gen change 2013 Past Medical History - Allergies and Home Meds Allergies/Adverse Reactions: Allergies latex Allergy (Intermediate, Verified 10/22/19 06:40) skin irritation aspirin Adverse Reaction (Severe, Verified 10/22/19 06:40) Nausea/Vom/Diarrhea erythromycin base [Erythromycin Base] Adverse Reaction (Severe, Verified 10/22/19 06:40) Vomiting,diarrhea NSAIDS (Non-Steroidal Anti-Inflamma Adverse Reaction (Severe, Verified 10/22/19 06:40) Vomiting,diarrhea Primary Care Physician: Charla Wadsworth MD [Primary Care Provider] - Surgical History: cholecystectomy, pacemaker implantation, - Smoking Status: Former smoker - Family History Maternal Family History: Family History (Last Reviewed 10/18/19 @ 23:[address] Robel Abrams MD) Daughter Multiple sclerosis Father CAD (coronary artery disease) Heart disease Multiple sclerosis Grandfather Heart disease Uncle Heart disease Aunt No problems noted. Sister Colon cancer Mother Hypertension Family History: Reports: No pertinent history Review of Systems General: Reports: Fever, Malaise. Denies: Chills, Sweats Eyes: Denies: Visual changes - bilaterally, Diplopia ENT: Denies: Bilateral ear pain, Rhinorrhea, Sore throat Cardiovascular: Denies: Chest pain, Palpitations Respiratory: Denies: Dyspnea, Cough, Dyspnea on exertion Gastrointestinal: Reports: Abdominal pain, Nausea, Vomiting, Diarrhea. Denies: Melena, Hematochezia Genitourinary: Reports: - - Patient states she was urinating less when she was admitted to the hospital for dehydration and ARMANI, now urinating more frequently and more like normal. Denies: Dysuria, Hematuria, Frequency Musculoskeletal: Reports: Back pain, Extremity Pain. Denies: Myalgias, Swelling Skin: Denies: Rash, Abscess, Wounds Neurological: Denies: Headache, Weakness, Numbness Physical Exam Vital Signs/Narrative: Vital Signs Temp Pulse Resp BP Pulse Ox 10/22/19 06:37 100.4 F H 77 18 183/98 H 97 Inital Vital Signs reviewed: Yes General: Well nourished, Well developed, No Acute Distress Head: Normocephalic, Atraumatic Eyes: Perrl, EOMI ENT: Moist mucous membranes, No rhinorrhea Neck: Supple, Nontender, No lymphadenopathy Cardiovascular: Regular rate, Regular rhythm, No murmurs. Negative for: Tachycardia Respiratory: No distress - Conversive in full sentences, CTA bilaterally, Chest nontender Abdomen: Soft, Nondistended, Normal bowel sounds, Tender - RUQ only. Negative for: Guarding, Rebound tenderness Back: Nontender, Normal Inspection. Negative for: CVA tenderness Extremities: No edema, Tenderness - Throughout proximal left lower extremity, including bony prominences of left ilium and hip, greater trochanter, and quadriceps muscles, all the way to the knee. Hamstrings nontender. All compartments soft. Patient has full range of motion, increased pain with flexion and extension of the knee which she is able to do fully. No significant pain with passive internal and external rotation of the hip. No palpable cords throughout the thigh or calf.. Negative for: Calf Tenderness Skin: Normal color, No rash - Including on evaluation of tender areas of left lower extremity, No Trauma Neurological: Alert, Oriented x3, Cranial nerves II-XII grossly intact, Normal Strength, Normal Sensation Psychological: Normal affect, Normal Mood, Tearful - At times when discussing her chronic symptoms Diagnostic/Tx/Re-eval Laboratory Results 10/22/19 10/22/19 07:16 07:16 WBC 14.5 H RBC 4.01 L Hgb 12.5 Hct 37.3 MCV 93.0 MCH 31.2 MCHC 33.5 RDW Std Deviation 44.9 H RDW Coeff of Ross 13.1 Plt Count 288 MPV 9.6 Immature Gran % (Auto) 0.400 Neut % (Auto) 71.7 H Lymph % (Auto) 19.1 [place] % (Auto) 6.7 Eos % (Auto) 1.8 Baso % (Auto) 0.3 Absolute Neuts (auto) 10.4 H Absolute Lymphs (auto) 2.77 Nucleated RBC % 0 Sodium 145 Potassium 3.4 L Chloride 112 H Carbon Dioxide 28.0 Anion Gap 5 BUN 15 Creatinine 0.88 Estim Creat Clear Calc 57.80 Est GFR (MDRD) Af Amer 87 Est GFR (MDRD) Non-Af 72 BUN/Creatinine Ratio 17.1 Glucose 106 Calcium 8.5 - Medical Decision Making I reviewed some of the patient's recent admission. She was not tested for COVID-19, or ova and parasites, C. difficile in the stool, but she was tested with an enteric bacterial panel which was negative, fecal white blood cells were negative and occult stool blood was negative. She has no risk factors for the other pathogens, but I added test for those anyway in case the patient provides another stool specimen here. Given her history it is certainly possible that she has a functional cause of her diarrhea and not an infectious, however with the fever she has developed and no other new symptoms, I think running the above tests to rule out other infectious etiologies is reasonable. Certainly, common viral etiologies are also in the differential diagnosis which I am not able to rule in or out here in the emergency department today. I discussed all this with her. She was treated here with IV fluids, Zofran, in addition to oral Tylenol and Troup, totaling acetaminophen just under 1000 mg, for her fever. She felt better, she was tolerating oral fluids, and she was offered to stay until she could provide a stool specimen but declined and preferred to go home which I think is fine. I gave her a prescription for those stool studies she was not able to provide specimen for today, and she will follow-up with her PCP. Advised to quarantine until the COVID-19 test returns negative. Advised to follow-up with her PCP. Encouraged to push fluids, prescribed Phenergan to use as needed. I do not think she needs prescription narcotics. I think her left lower extremity pain is musculoskeletal, there is no suspicion for a DVT given the exam. She thinks maybe it is hurting like this because of the bed she was lying on here in the hospital. Bursitis would be in the differential except she is tender everywhere throughout the left hemipelvis and hip area. Advised to stretch this area, and just simply use it without lying on it when sleeping. ED Disposition - Plan for ED Patient: Disposition: Home or Assisted Living Diagnosis: Acute diarrhea, Chronic upper abdominal pain, Musculoskeletal pain of left thigh Prescriptions: proMETHazine tablet [Phenergan] 25 mg PO Q6H PRN PRN #10 tab PRN Reason: Nausea Prescription Printed Referrals: Charla Wadsworth MD [Primary Care Provider] - 3-5 Days
[2019-10-22] MEDS: HYDROcodone Bitartrate/Apap 5/325 Tablet PO (07:24)
[2019-10-22] MEDS: Acetaminophen 325 MG Tablet 650 MG PO (07:25)
[2019-10-22] MEDS: Ondansetron 4 MG/2 ML Vial IV (07:25)
[2019-10-22 07:29] VITALS: BP 183/98; PULSE 77; RESP 18; TEMP 38; O2SAT 97
[2019-10-22 07:30] LABS: Absolute Lymphocyte Count 2.77 X10^3/uL (0.83-4.51); Absolute Neutrophil Count 10.4 X10^3/uL (2.0-7.7); Basophil# 0.05 X10^3/uL; Basophil% 0.3 % (0-1); Eosinophil# 0.26 X10^3/uL; Eosinophils% 1.8 % (0-5); Hematocrit 37.3 % (37-47); Hemoglobin 12.5 g/dL (12.0-15.0); Lymphocyte # 2.77 X10^3/ul (4.0); Lymphocyte % 19.1 % (19-41); Mean Corp Hgb Conc 33.5 g/dL (32-36); Mean Corpuscular Hgb 31.2 pg (27.0-32.0); Mean Platelet Vol. 9.6 fl (6.2-12.0); Monocyte# 0.98 X10^3/uL; Monocyte% 6.7 % (0-10); NRBC Flagged by Analyzer 0 % (0-5); Neutrophil # 10.42 X10^3/uL (2.7-7.7); Neutrophil % 71.7 % (47-70); Platelet Count 288 K/mm3 (150-450); RBC Distribution Width CV 13.1 % (11.6-14.6); RBC Distribution Width SD 44.9 fl (35.1-43.9); Red Blood Count 4.01 M/mm3 (4.2-5.4); White Blood Count 14.5 K/mm3 (4.4-11.0)
[2019-10-22 07:44] LABS: Anion Gap 5 (5-15); BUN 15 mg/dL (7-18); BUN/Creat Ratio 17.1 RATIO (10-20); Calcium,Total 8.5 mg/dL (8.5-10.1); Chloride 112 mmol/L (98-107); Creatinine, Serum 0.88 mg/dL (0.55-1.02); EST Glomerular Filtration Rate 72 mL/min (>60); Est Glom Filt Rate - Afr Amer 87 mL/min (>60); Glucose 106 mg/dL (74-106); Potassium 3.4 mmol/L (3.5-5.1); Sodium Level 145 mmol/L (136-145)
[2019-10-22 08:03] VITALS: BP 183/98; PULSE 77; RESP 18; TEMP 38; O2SAT 97
[2019-10-22 09:24] VITALS: BP 162/61; PULSE 74; RESP 18; TEMP 36.6; O2SAT 99
== END 2019-10-22 09:25 | disposition home or self-care (01) ==
PROVIDERS: Emergency Provider Emergency Medicine; PCP Internal Medicine
DX: R19.7 Diarrhea, unspecified (principal); R10.11 Right upper quadrant pain; M79.652 Pain in left thigh; R11.2 Nausea with vomiting, unspecified; R50.9 Fever, unspecified; M54.5 Low back pain; G89.29 Other chronic pain; I10 Essential (primary) hypertension; I49.5 Sick sinus syndrome; J44.9 Chronic obstructive pulmonary disease, unspecified; D75.1 Secondary polycythemia; F32.9 Major depressive disorder, single episode, unspecified; F41.9 Anxiety disorder, unspecified; Z79.899 Other long term (current) drug therapy; Z87.891 Personal history of nicotine dependence; Z95.0 Presence of cardiac pacemaker; Z90.49 Acquired absence of other specified parts of digestive tract
CPT/HCPCS: 80048; 85025; 87635; 94799; 99285; J7040; J2405; U0003

== ENCOUNTER 2019-10-23 23:28 | Inpatient (IN) | payer MEDICARE, MEDICAID, SELFPAY ==
[2019-10-22 06:37] VITALS: BMI 33.7
[2019-10-23 23:28] VITALS: BP 189/113; PULSE 76; RESP 18; TEMP 36.9; O2SAT 97; BMI 26.5
--- NOTE | 2019-10-23 23:46 | ED.VIS.GEN ---
History of Present Illness Chief Complaint: Abn Labs Narrative: Patient is a 54-year-old female who presents with nausea vomiting and diarrhea. She has a history of a neuroendocrine tumor with partial gastric resection and cholecystectomy. She was seen 5 days ago for nausea vomiting and diarrhea. She was admitted with an acute kidney injury and hypokalemia. She is currently undergoing outpatient evaluation for possible recurrence of neuroendocrine tumor. She was seen yesterday and had laboratory studies her potassium was 3.4. She had a COVID-19 test which was negative. She had already had an enteric pathogen panel for stool performed while in the hospital which was negative. Today she developed diffuse muscle cramping. She contacted oncology who advised that she be checked here in the emergency department and have her potassium level checked. She reports low-grade fever of 99.8 today. She reports ongoing intermittent vomiting despite antiemetics with last episode a couple of hours ago. She reports about 9 or 10 episodes of diarrhea per day. She also complains of some diffuse abdominal pain. Past Medical History - Allergies and Home Meds Allergies/Adverse Reactions: Allergies latex Allergy (Intermediate, Verified 10/23/19 23:30) skin irritation aspirin Adverse Reaction (Severe, Verified 10/23/19 23:30) Nausea/Vom/Diarrhea erythromycin base [Erythromycin Base] Adverse Reaction (Severe, Verified 10/23/19 23:30) Vomiting,diarrhea NSAIDS (Non-Steroidal Anti-Inflamma Adverse Reaction (Severe, Verified 10/23/19 23:30) Vomiting,diarrhea Primary Care Physician: Charla Wadsworth MD [Primary Care Provider] - Past Medical History: - - Hypertension sick sinus syndrome, anxiety and depression Surgical History: cholecystectomy, pacemaker implantation, - Smoking Status: Former smoker - Family History Maternal Family History: Family History (Last Reviewed 10/18/19 @ 23:[address] Robel Abrams MD) Daughter Multiple sclerosis Father CAD (coronary artery disease) Heart disease Multiple sclerosis Grandfather Heart disease Uncle Heart disease Aunt No problems noted. Sister Colon cancer Mother Hypertension Family History: Reports: No pertinent history Review of Systems All systems negative except as indicated General: Reports: Fever Eyes: Denies: Visual changes - bilaterally ENT: Denies: Bilateral ear pain Cardiovascular: Denies: Chest pain Respiratory: Denies: Dyspnea Gastrointestinal: Reports: Abdominal pain, Nausea, Vomiting, Diarrhea Musculoskeletal: Reports: Myalgias, Arthralgias Skin: Denies: Rash Neurological: Denies: Headache Physical Exam Vital Signs/Narrative: Vital Signs Temp Pulse Resp BP Pulse Ox 10/23/19 23:28 98.4 F 76 18 189/113 H 97 Inital Vital Signs reviewed: Yes General: Well nourished Head: Normocephalic Eyes: EOMI ENT: Moist mucous membranes Neck: Supple Cardiovascular: Regular rate, Regular rhythm Respiratory: No distress, CTA bilaterally Abdomen: Soft, Tender. Negative for: Guarding Skin: Normal color Neurological: Alert Psychological: Normal affect Diagnostic/Tx/Re-eval Laboratory Results 10/23/19 10/23/19 10/23/19 23:42 23:42 23:55 WBC 15.9 H RBC 4.10 L Hgb 13.0 Hct 37.9 MCV 92.4 MCH 31.7 MCHC 34.3 RDW Std Deviation 44.1 H RDW Coeff of Ross 13.2 Plt Count 370 MPV 9.3 Immature Gran % (Auto) 0.400 Neut % (Auto) 68.7 Lymph % (Auto) 23.0 Dougherty % (Auto) 5.8 Eos % (Auto) 1.8 Baso % (Auto) 0.3 Absolute Neuts (auto) 10.9 H Absolute Lymphs (auto) 3.66 Nucleated RBC % 0.1 Sodium 143 Potassium 3.1 L Chloride 107 Carbon Dioxide 28.0 Anion Gap 8 BUN 11 Creatinine 1.01 Estim Creat Clear Calc 50.36 Est GFR (MDRD) Af Amer 73 Est GFR (MDRD) Non-Af 61 BUN/Creatinine Ratio 10.9 Glucose 107 H Calcium 9.2 Total Bilirubin 0.10 L AST 11 L ALT 20 Alkaline Phosphatase 99 Total Protein 8.0 Albumin 3.5 Globulin 4.5 H Albumin/Globulin Ratio 0.8 L Lipase 128 Urine Color Yellow Urine Clarity Clear Urine pH 6.0 Ur Specific [place] 1.010 Urine Protein Negative Urine Glucose (UA) Normal Urine Ketones Negative Urine Occult Blood 10 H Urine Nitrite Negative Urine Bilirubin Negative Urine Urobilinogen Normal Ur Leukocyte Esterase 25 H Urine RBC 0 SEEN Urine WBC 0 SEEN Ur Squamous Epith Cells 5-10 SEEN Urine Bacteria 0 SEEN Urine Mucus 0 SEEN - Medical Decision Making Laboratory evaluation as above. Labs notable for potassium 3.1, white blood cell count 15.9. Patient was treated here with IV fluids morphine Zofran. She has had some improvement. However she continues to have intractable vomiting and diarrhea despite antiemetics and antidiarrheals at home. She continues to have worsening hypokalemia. Given uncontrolled symptoms I feel hospitalization appropriate. I spoke to the hospitalist who agrees to admit. ED Disposition - Plan for ED Patient: Disposition: Acute Care Hospital [facility] Diagnosis: Intractable vomiting, Diarrhea, Hypokalemia Referrals: Charla Wadsworth MD [Primary Care Provider] -
[2019-10-23 23:52] LABS: Absolute Lymphocyte Count 3.66 X10^3/uL (0.83-4.51); Absolute Neutrophil Count 10.9 X10^3/uL (2.0-7.7); Basophil# 0.04 X10^3/uL; Basophil% 0.3 % (0-1); Eosinophil# 0.29 X10^3/uL; Eosinophils% 1.8 % (0-5); Hematocrit 37.9 % (37-47); Lymphocyte # 3.66 X10^3/ul (4.0); Mean Corp Hgb Conc 34.3 g/dL (32-36); Mean Corpuscular Hgb 31.7 pg (27.0-32.0); Mean Corpuscular Volume 92.4 fL (81-99); Mean Platelet Vol. 9.3 fl (6.2-12.0); Monocyte# 0.92 X10^3/uL; Monocyte% 5.8 % (0-10); NRBC Flagged by Analyzer 0.1 % (0-5); Neutrophil # 10.94 X10^3/uL (2.7-7.7); Neutrophil % 68.7 % (47-70); Platelet Count 370 K/mm3 (150-450); RBC Distribution Width CV 13.2 % (11.6-14.6); RBC Distribution Width SD 44.1 fl (35.1-43.9); White Blood Count 15.9 K/mm3 (4.4-11.0)
[2019-10-23] MEDS: 0.9% Normal Saline 1,000 ML 1000 ML IV (23:54)
[2019-10-23] MEDS: Morphine 4 MG/ML Syringe IV (23:54)
[2019-10-23] MEDS: proMETHazine 25 MG/ML Syringe 12.5 MG IV (23:54)
[2019-10-24] VITALS (8 sets, daily range): BP systolic 125–149; BP diastolic 71–96; PULSE 55–80; RESP 14–18; TEMP 36.6–36.9; O2SAT 94–98; BMI 22.8
[2019-10-24 00:02] LABS: Bacteria 0 SEEN /hpf (None Seen); Mucous, Urine 0 SEEN /hpf (<or=2+); Red Blood Cells-Urine 0 SEEN /hpf (0-5); White Blood Cells 0 SEEN /hpf (0-5)
[2019-10-24 00:10] LABS: ALB/GLOB Ratio 0.8 RATIO (0.9-2.4); AST(SGOT) 11 U/L (15-37); Alanine Aminotransfer ALT/SGPT 20 U/L (13-56); Albumin, Serum 3.5 g/dL (3.2-5.0); Alkaline Phosphatase 99 U/L (45-117); Anion Gap 8 (5-15); BUN 11 mg/dL (7-18); BUN/Creat Ratio 10.9 RATIO (10-20); Calcium,Total 9.2 mg/dL (8.5-10.1); Chloride 107 mmol/L (98-107); Creatinine, Serum 1.01 mg/dL (0.55-1.02); EST Glomerular Filtration Rate 61 mL/min (>60); Est Glom Filt Rate - Afr Amer 73 mL/min (>60); Estimated Creatinine Clearance 50.36 ml/min; Globulin 4.5 g/dL (2.2-4.2); Glucose 107 mg/dL (74-106); Lipase 128 U/L (73-393); Potassium 3.1 mmol/L (3.5-5.1); Sodium Level 143 mmol/L (136-145)
[2019-10-24 00:12] LABS: Color, Urine Yellow (Yellow); Glucose, Dipstick Normal (Normal); Ketone-Dipstick Negative (Negative); Leukocyte Esterase-Dipstick 25 /ul (Negative); Nitrite-Dipstick Negative (Negative); Occult Blood-Urine 10 /ul (Negative); Protein-Dipstick Negative (Negative); Urine Bilirubin Dipstick Negative (Negative); Urine Clarity Clear (Clear); Urine Urobilinogen Normal (Normal)
[2019-10-24 00:41] LABS: Squamous Epithelial Cells - UA 5-10 SEEN /hpf (5-10)
--- NOTE | 2019-10-24 00:55 | PCM.HP.STD ---
Problem List (1) Nausea, vomiting and diarrhea Status: Acute (2) ELOY (obstructive sleep apnea) Status: Chronic (3) Primary malignant neuroendocrine tumor of stomach Status: Chronic (4) Anxiety and depression Status: Chronic (5) Presence of permanent cardiac pacemaker Status: Resolved Comment: 2003, Gen change 2013 (6) Essential (primary) hypertension Status: Chronic (7) Sick sinus syndrome Status: Chronic (8) Tobacco dependence syndrome Status: Chronic History of Present Illness Date of Admission: 10/24/19 Chief Complaint: Abnormal electrolytes The patient is a 54 y/o F w/ PMHx: Anxiety and Depression/PTSD, Chronic anemia, Hypothyroidism, ELOY, Tobacc ouse, HTN, HLD, Hx Sick Sinus Syndrome s/p pacemaker placement, Chronic pain Syndrome, Gastric Neuroendocrine cancer s/p distal gastrectomy tumor excision following w/ Dr. Navarro recently admitted 10/18/19-10/20/19 for acute on chronic diarrhea, nausea and emesis with electrolyte disturbances including hypomagnesia and hypokalemia as well as ARMANI who now re-presents to the [facility] ED on 10/24/19 with history of return to the ED 10/22/2019 in the a.m. secondary to ongoing watery nonbloody diarrhea with occasional light nonbloody emesis with associated abdominal discomfort primarily in the right upper quadrant mild to moderate in severity with concurrent fever. She also notes ongoing nausea, emesis and diarrhea (>6 x/day) with inability to maintain appropriate oral intake. She notes that essentially anytime she has anything aside clear liquids specifically more solid foods she has onset of abdominal discomfort primarily again in the right upper quadrant, cramping, severe, 6-8 out of 10 in severity with immediate diarrhea following. Work-up in the ED included T 98.4, heart 76, BP 189/113, respiratory rate 18, 97% on room air, CBC with WBC 15.9, hemoglobin 13, platelet 370 with left shift, CMP with potassium 3.1, glucose 107 otherwise not marked appearing, lipase 128, urinalysis unremarkable, recent 10/18/2019 CT abdomen pelvis however without contrast with no suspicious solid organ abnormality, prior cholecystectomy evident with no acute intra-abdominal findings. Past Medical History Past Medical History (Chronic Problems): Chronic Problems (Last Reviewed 10/19/19 @ 03:[address] Robel Abrams MD) ELOY (obstructive sleep apnea) (Chronic) COPD (chronic obstructive pulmonary disease) (Chronic) Polycythemia (Chronic) Primary malignant neuroendocrine tumor of stomach (Chronic) Anxiety and depression (Chronic) Intermittent palpitations (Chronic) Essential (primary) hypertension (Chronic) Sick sinus syndrome (Chronic) Tobacco dependence syndrome (Chronic) Medical History: Medical History (Last Reviewed 10/19/19 @ 03:[address] 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 GERD (gastroesophageal reflux disease) K21.9 GERD (gastroesophageal reflux disease) K21.9 Gabapentin overdose T42.6X1A Heart murmur R01.1 History of anxiety disorder Z86.59 History of pneumonia Z87.01 Hypoglycemia E16.2 Hypothyroidism E03.9 Hypothyroidism E03.9 Neuroendocrine neoplasm of stomach D3A.8 Neuropathy G62.9 Neuropathy G62.9 ELOY (obstructive sleep apnea) G47.33 Obesity E66.9 Obstructive sleep apnea G47.33 PTSD (post-traumatic stress disorder) F43.10 PTSD (post-traumatic stress disorder) F43.10 Sinus pause I45.5 Vitamin D deficiency E55.9 Allergies latex Allergy (Intermediate, Verified 10/23/19 23:30) skin irritation aspirin Adverse Reaction (Severe, Verified 10/23/19 23:30) Nausea/Vom/Diarrhea erythromycin base [Erythromycin Base] Adverse Reaction (Severe, Verified 10/23/19 23:30) Vomiting,diarrhea NSAIDS (Non-Steroidal Anti-Inflamma Adverse Reaction (Severe, Verified 10/23/19 23:30) Vomiting,diarrhea Home Medications: Ambulatory Orders Medication Instructions Recorded Duloxetine Hcl [Cymbalta] 120 mg PO DAILY 03/28/15 buspirone 5 mg tablet 5 mg PO TID #90 tab 02/03/19 hydrochlorothiazide 25 mg tablet 25 mg PO DAILY #30 tab 06/05/19 Lorazepam 1 mg PO TID PRN PRN 04/21/20 Zolpidem Tartrate [Ambien] 10 mg PO QHS 06/30/19 promethazine 12.5 mg tablet 12.5 mg PO BID PRN #30 tab 08/07/19 omeprazole 40 mg capsule,delayed 40 mg PO DAILY #90 cap 09/10/19 release metoprolol tartrate 50 mg tablet 50 mg PO BID #180 tab 09/15/19 Levothyroxine Sodium [Synthroid] 25 mcg PO DAILY 09/29/19 lisinopril 40 mg tablet 40 mg PO DAILY #90 tab 10/02/19 methocarbamol 750 mg tablet 750 mg PO BID PRN #180 tab 10/02/19 proMETHazine tablet [Phenergan] 25 mg PO Q6H PRN PRN #10 tab 10/22/19 Surgical History: Surgical History (Last Reviewed 10/19/19 @ 03:[address] Robel Abrams MD) Presence of permanent cardiac pacemaker (Resolved) Onset Date: 2013 Z95.0 2004, Gen change 2014 History of appendectomy Z90.49 History of back surgery Z98.890 History of colonoscopy Z98.890 2018, every 5 years due to polyps. History of elbow surgery Z98.890 History of hysterectomy Z90.710 History of laparotomy Z98.890 History of resection of stomach Z90.3 Hx of cholecystectomy Z90.49 history excision neuroendocrine tumor Surgical History: cholecystectomy, pacemaker implantation, - - Partial gastrectomy secondary to excision neuroendocrine tumor, appendectomy, cholecystectomy, hysterectomy, back surgery, elbow surgery, pacemaker. 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 Tobacco Use: Cigarettes Alcohol: None Drugs: None - *Family History Maternal Family History: Family History (Last Reviewed 10/18/19 @ 23:[address] Robel Abrams MD) Daughter Multiple sclerosis Father CAD (coronary artery disease) Heart disease Multiple sclerosis Grandfather Heart disease Uncle Heart disease Aunt No problems noted. Sister Colon cancer Mother Hypertension History Items: Hypertension Paternal Family History: Family History (Last Reviewed 10/18/19 @ 23:[address] Robel Abrams MD) Daughter Multiple sclerosis Father CAD (coronary artery disease) Heart disease Multiple sclerosis Grandfather Heart disease Uncle Heart disease Aunt No problems noted. Sister Colon cancer Mother Hypertension History Items: High Cholesterol, Heart Disease, Hypertension, - - Father with history of multiple sclerosis. Review of Systems Constitutional: Reports: Anorexia, Fever, Malaise, Weakness, Fatigue. Denies: Chills, Weight Change HEENT: Denies: Head Aches, Sinus Congestion, Sinus Drainage Cardiovascular: Denies: Chest Pain, Palpitations Respiratory: Denies: Cough, Shortness of breath at rest, Sputum production Gastrointestinal: Reports: Abdominal Pain, Diarrhea, Nausea, Vomiting Genitourinary: Denies: Dysuria Musculoskeletal: Reports: Back Pain, Joint Pain. Denies: Joint Tenderness Skin: Denies: Rash, Wounds Neurological: Denies: Numbness, Tingling, Focal weakness Psychiatric: Reports: Anxiety, Depression. Denies: Homicidal Ideations, Suicidal Ideations Hematologic/ Lymphatic: Reports: Anemia. Denies: Easy Bruising, Easy Bleeding VTE Information - Inpt Only VTE Present on Admission: No VTE Mechan Device Prophylaxis: SCD's VTE Pharm Prophylaxis ordered?: Yes Subjective: Seated upright in the ED, fatigued appearance, currently no acute distress, last oral intake she notes was at 7 PM with no intake since. Objective: Physical Examination: General: awake, alert, oriented x 3 and cooperative, seated upright in the ED bedside, fatigued appearance, no acute distress, no current severe abdominal pain but no recent oral intake. Skin: normal color, turgor, no icterus, cyanosis. HEENT: AT/NC, EOMI, PERRLA, dry MM, no carotid bruits or JVD noted. Lungs: CTA bilaterally, moderate effort, mild decrease BL bases, no rales, ronchi or wheezing. Heart: Regular rate and rhythm; no gallop, rub audible. Abdomen: soft, mild generalized discomfort but no significant pain to palpation but no recent oral intake, previously had primarily right upper quadrant discomfort but none currently and no rebound or guarding, ND, distant normal BS, no HSM. Extremities: no cyanosis, clubbing, or edema. Neurological: patient awake, alert, oriented x 3; cognitive function intact; pupils equally reactive to light and accomodation; cranial nerves II-XII grossly normal, moving all 4 extremities, no focal deficits, strength moderately global decrease secondary to acute presentation. Psychiatric: affect appears fatigued otherwise normal, no acute evidence of depressive or anxiety feelings. - Physical Exam Vitals/I&O's: Vital Signs Temp Pulse Resp BP Pulse Ox 98.4 F 76 18 189/113 H 97 10/23/19 23:28 10/23/19 23:28 10/23/19 23:28 10/23/19 23:28 10/23/19 23:28 Oxygen Delivery Method Room Air Weight: 145 lb Body Mass Index (BMI) 26.5 Finger Stick Blood Glucose 92 Laboratory Results 10/23/19 23:42: WBC 15.9 H, RBC 4.10 L, Hgb 13.0, Hct 37.9, MCV 92.4, MCH 31.7, MCHC 34.3, RDW Std Deviation 44.1 H, RDW Coeff of Ross 13.2, Plt Count 370, MPV 9.3, Immature Gran % (Auto) 0.400, Neut % (Auto) 68.7, Lymph % (Auto) 23.0, Bell % (Auto) 5.8, Eos % (Auto) 1.8, Baso % (Auto) 0.3, Absolute Neuts (auto) 10.9 H, Absolute Lymphs (auto) 3.66, Nucleated RBC % 0.1 10/23/19 23:42: Sodium 143, Potassium 3.1 L, Chloride 107, Carbon Dioxide 28.0, Anion Gap 8, BUN 11, Creatinine 1.01, Estim Creat Clear Calc 50.36, Est GFR (MDRD) Af Amer 73, Est GFR (MDRD) Non-Af 61, BUN/Creatinine Ratio 10.9, Glucose 107 H, Calcium 9.2, Total Bilirubin 0.10 L, AST 11 L, ALT 20, Alkaline Phosphatase 99, Total Protein 8.0, Albumin 3.5, Globulin 4.5 H, Albumin/Globulin Ratio 0.8 L, Lipase 128 10/23/19 23:55: Urine Color Yellow, Urine Clarity Clear, Urine pH 6.0, Ur Specific [place] 1.010, Urine Protein Negative, Urine Glucose (UA) Normal, Urine Ketones Negative, Urine Occult Blood 10 H, Urine Nitrite Negative, Urine Bilirubin Negative, Urine Urobilinogen Normal, Ur Leukocyte Esterase 25 H, Urine RBC 0 SEEN, Urine WBC 0 SEEN, Ur Squamous Epith Cells 5-10 SEEN, Urine Bacteria 0 SEEN, Urine Mucus 0 SEEN Current Medications Potassium Chloride () 10 meq in 100 mls @ 100 mls/hr IV BOLUS Q1H TOÑO Stop: 10/24/19 04:59 Assessment/Plan All Active Problems (Last Reviewed 10/19/19 @ 03:[address] Robel Abrams MD) Nausea, vomiting and diarrhea (Acute) Sacral contusion (Acute) Presence of permanent cardiac pacemaker (Resolved 2013) The patient is a 54 y/o F w/ PMHx: Anxiety and Depression/PTSD, Chronic anemia, Hypothyroidism, ELOY, [place]acc ouse, HTN, HLD, Hx Sick Sinus Syndrome s/p pacemaker placement, Chronic pain Syndrome, Gastric Neuroendocrine cancer s/p distal gastrectomy tumor excision following w/ Dr. Navarro recently admitted who now returns to the [facility] ED on 10/24/19 with ongoing intractable nausea, emesis, abdominal pain, diarrhea with inability to maintain appropriate oral intake. 1. Intractable recurrent nausea, Emesis, Diarrhea, unclear specific etiology with electrolyte disturbances: Will admit to MS, continue aggressive hydration, will obtain c-diff as not recently performed during prior admission and ongoing episodes with noted negative enteric back cariology at that time, plan repeat AM CBC, defer immediate initiation of oral vancomycin but if positive C. difficile would initiate immediately, PRN antiemetic and pain regimen, will de-escalate to clear liquids only and maintain on IV Protonix in interim. Repeat CMP in a.m. with potassium supplementation in the interim, magnesium and phosphorus levels requested. During prior admission oncology was consulted, will defer upon admission pending C. difficile testing but if necessary may consult and have them evaluate the patient again. Of note recent COVID testing was negative. 2. Primary gastric neuroendocrine tumor: Status post laparoscopic partial gastrectomy and cholecystectomy 05/2017 at [facility] with chronic diarrhea following with routine EGD per Dr. Mack with last EGD 11/2018 demonstrating reactive gastropathy, following with Dr. Navarro. 3. History of sick sinus syndrome: Status post pacemaker placement. 4. Hypertension: Continue home regimen including lisinopril, metoprolol, will hold hydrochlorothiazide, PRN hydralazine. 5. Hyperlipidemia: Not on regimen, defer to outpatient. 6. Insert hypothyroidism 7. Anxiety and depression/PTSD: We will continue patient home Cymbalta, BuSpar, lorazepam as well as nightly Ambien regimen. 8. Tobacco Abuse: Encouraged cessation, inpatient consultation per RT, NR if desired. 9. ELOY: We will continue home CPAP regimen. 10. GERD: We will transition to IV Protonix given acute presentation. 11. DVT prophylaxis: SCDs, Lovenox. 12. CODE status: Patient HCPOA nor living will is set up, encourage that she perform these activities and noted that she may request social work/case management assistancefor information. Discussed CODE status at length including difference between FULL code, DNR-CCA and DNR-CC status. Following discussions about the differences in these status, requested Full Code status. Advanced Care Planning Face to Face Time: 16 minutes. Inpatient E&M: 47780 Init Hosp L3 Procedures: 63017 Advncd Care Plan 30 Min
[2019-10-24] MEDS: Potassium Chloride 10mEq/100mL 10 MEQ/100 ML IV.SOLN. 100 MEQ IV BOLUS ×8 (01:17→13:08)
[2019-10-24 03:06] LABS: Magnesium 1.6 mg/dL (1.6-2.6); Phosphorus 3.8 mg/dL (2.5-4.9)
[2019-10-24] MEDS: 0.9% Normal Saline 1,000 ML 150 ML IV ×4 (03:06→21:08)
[2019-10-24] MEDS: HYDROmorphone 0.5 MG/0.5 ML SYRINGE IV ×4 (03:14→21:16)
[2019-10-24] MEDS: busPIRone 5 MG Tablet PO ×3 (06:02→21:07)
[2019-10-24] MEDS: Levothyroxine 25 MCG TABLET PO (06:02)
[2019-10-24 07:03] LABS: Absolute Lymphocyte Count 3.78 X10^3/uL (0.83-4.51); Basophil# 0.04 X10^3/uL; Basophil% 0.3 % (0-1); Eosinophil# 0.24 X10^3/uL; Hematocrit 33.8 % (37-47); Hemoglobin 11.3 g/dL (12.0-15.0); Lymphocyte # 3.78 X10^3/ul (4.0); Lymphocyte % 31.8 % (19-41); Mean Corp Hgb Conc 33.4 g/dL (32-36); Mean Corpuscular Hgb 31.4 pg (27.0-32.0); Mean Corpuscular Volume 93.9 fL (81-99); Mean Platelet Vol. 9.5 fl (6.2-12.0); Monocyte# 0.78 X10^3/uL; Monocyte% 6.6 % (0-10); NRBC Flagged by Analyzer 0 % (0-5); Platelet Count 303 K/mm3 (150-450); RBC Distribution Width CV 13.2 % (11.6-14.6); RBC Distribution Width SD 45.6 fl (35.1-43.9); White Blood Count 11.9 K/mm3 (4.4-11.0)
[2019-10-24 07:27] LABS: ALB/GLOB Ratio 0.7 RATIO (0.9-2.4); AST(SGOT) 10 U/L (15-37); Alanine Aminotransfer ALT/SGPT 15 U/L (13-56); Albumin, Serum 2.7 g/dL (3.2-5.0); Alkaline Phosphatase 77 U/L (45-117); Anion Gap 5 (5-15); BUN 9 mg/dL (7-18); BUN/Creat Ratio 11.5 RATIO (10-20); Calcium,Total 8.1 mg/dL (8.5-10.1); Chloride 111 mmol/L (98-107); Creatinine, Serum 0.78 mg/dL (0.55-1.02); EST Glomerular Filtration Rate 82 mL/min (>60); Est Glom Filt Rate - Afr Amer 99 mL/min (>60); Estimated Creatinine Clearance 65.21 ml/min; Globulin 3.7 g/dL (2.2-4.2); Glucose 97 mg/dL (74-106); Potassium 3.1 mmol/L (3.5-5.1); Protein, Total 6.4 g/dL (6.4-8.2); Sodium Level 143 mmol/L (136-145)
--- NOTE | 2019-10-24 07:30 | PN_ITS ---
Progress Note Patient is a 54-year-old lady with history of neuroendocrine tumor status post partial gastric resection and cholecystectomy who presented with a 5-day history of nausea and vomiting. Her evaluation and admission was consistent with dehydration with acute kidney injury and hypokalemia admitted to regular nursing floor for further management 1. Acute gastroenteritis ?Admitted to regular nursing floor managed symptomatically 2. Acute kidney injury From dehydration from above on IV fluids with monitoring of electrolyte 3. Hypokalemia ?Secondary to gastric losses from above corrected per protocol 4. History of neuroendocrine tumor ?Status post partial gastric resection and cholecystectomy patient has a follow- up appointment with oncology Dr. Noel 5. Hypertension - Blood pressure controlled, home medications continued with dose adjustment as needed 6. Hypothyroidism - Patient is on levothyroxine home dose continued 7. History of sick sinus syndrome ?Status post pacemaker placement 8. Obstructive sleep apnea ?Patient is on CPAP at night 9. GERD ?Patient on PPI 10. History of depression with anxiety as well as history of PTSD ?Patient is on Cymbalta and BuSpar 11. DVT prophylaxis ?Lovenox
[2019-10-24] MEDS: Metoprolol Tartrate 50 MG Tablet PO ×2 (08:27→21:15)
[2019-10-24] MEDS: DULoxetine Hcl 60 MG Capsule 120 MG PO (08:28)
[2019-10-24] MEDS: Lisinopril 40 MG Tablet PO (08:28)
[2019-10-24] MEDS: proMETHazine 25 MG/ML Syringe 12.5 MG IV (08:31)
[2019-10-24] MEDS: Enoxaparin 40 MG/0.4 ML Syringe SC (08:33)
[2019-10-24] MEDS: Ensure Clear 120 ML Liquid PO ×4 (08:36→21:17)
[2019-10-24 08:58] LABS: Magnesium 1.5 mg/dL (1.6-2.6)
[2019-10-24] MEDS: oxyCODONE 5 MG Tablet 10 MG PO ×3 (11:55→23:53)
[2019-10-24] MEDS: LORazepam 1 MG Tablet PO (11:57)
--- NOTE | 2019-10-24 12:57 | CASEMGMT ---
Readmission chart review: Pt initially admitted 10/17-10/20/2019 for N/V/D and potassium was 2.8 on admission. Pt has a hx of malignant neuroendocrine tumor of the stomach s/p partial gastrectomy for same in May 2017 at [facility]. Pt declined need for any further resources at discharge. Pt was discharged home and then returned to [facility] ED on 10/22/2019 in the am for same symptoms and was discharged home. Amos WHARTON CM made a f/u phone call to pt later that same day and pt then stated she was interested in have C SN set up thru [facility] at that time. [facility] and was planning to see pt on 10/23/2019 for SOC. Pt then called [facility] asking for Amos WHARTON CM to call her back. Per pt, she was having worsening sx's and the PCP would not see her in office d/t pend COVID test but offered to do a virtual visit. Per pt, virtual visits are not covered by her insurance any longer. Pt was advised to come back to [facility] ED for any worsening sx's. Pt then returned to ED on 10/23/2019 later in the evening for N/V/D. Potassium is 3.1 at this time. CM to follow for any further discharge planning/needs. Per Dr. Mckinney's note, pt was encouraged to complete AD's at this time and Shanice BENSON was made aware. Melanie WHARTON CM
--- NOTE | 2019-10-24 13:02 | CASEMGMT ---
SW spoke w/pt briefly in room, pt on phone, did not get off the phone when SW entered room. Physician had indicated pt wanted information on Advance Directives. SW inquired if she would like to complete LW/POA forms now, or if she wanted the forms. Pt asked for the forms to complete later. SW gave pt the forms with the number to the SW department, explained to her that once she is home, she can call to set up an appointment to complete the forms. Pt states understanding. No further needs at this time. LOUIE Amin
[2019-10-24] MEDS: Ondansetron 4 MG/2 ML Vial IV ×2 (13:12→21:16)
[2019-10-24] MEDS: Acetaminophen 325 MG Tablet 650 MG PO (19:34)
[2019-10-24] MEDS: proMETHazine 25 MG/ML Syringe 12.5 MG IM (19:34)
[2019-10-24] MEDS: Methocarbamol 750 MG Tablet PO (19:38)
[2019-10-24] MEDS: 0.9% Saline Lock 10 ML Syringe IV (21:16)
[2019-10-24] MEDS: Zolpidem Tartrate 5 MG Tablet PO ×2 (21:16→23:56)
[2019-10-25] VITALS (8 sets, daily range): BP systolic 102–142; BP diastolic 57–78; PULSE 55–69; RESP 14–18; TEMP 36.7–37; O2SAT 95–97
[2019-10-25] MEDS: HYDROmorphone 0.5 MG/0.5 ML SYRINGE IV ×5 (01:25→20:56)
[2019-10-25] MEDS: LORazepam 1 MG Tablet PO ×3 (01:25→15:19)
[2019-10-25] MEDS: 0.9% Saline Lock 10 ML Syringe IV ×5 (01:25→20:56)
--- NOTE | 2019-10-25 01:53 | CPS ---
Pt. switched from CPAP to BiPAP due to pt.'s inability to tolerate CPAP, comfortably. I switched to BiPAP (22/10) and the pt. seems much more comfortable.
[2019-10-25] MEDS: 0.9% Normal Saline 1,000 ML 150 ML IV (04:27)
[2019-10-25 05:50] LABS: Hemoglobin 10.4 g/dL (12.0-15.0); Mean Corp Hgb Conc 31.5 g/dL (32-36); Mean Corpuscular Hgb 31.2 pg (27.0-32.0); Mean Corpuscular Volume 99.1 fL (81-99); Mean Platelet Vol. 9.7 fl (6.2-12.0); Platelet Count 283 K/mm3 (150-450); RBC Distribution Width CV 13.5 % (11.6-14.6); RBC Distribution Width SD 48.4 fl (35.1-43.9); Red Blood Count 3.33 M/mm3 (4.2-5.4); White Blood Count 8.4 K/mm3 (4.4-11.0)
[2019-10-25 06:06] LABS: Anion Gap 6 (5-15); BUN 7 mg/dL (7-18); BUN/Creat Ratio 9.4 RATIO (10-20); Calcium,Total 7.8 mg/dL (8.5-10.1); Chloride 115 mmol/L (98-107); Creatinine, Serum 0.74 mg/dL (0.55-1.02); EST Glomerular Filtration Rate 86 mL/min (>60); Est Glom Filt Rate - Afr Amer 104 mL/min (>60); Estimated Creatinine Clearance 68.74 ml/min; Glucose 79 mg/dL (74-106); Magnesium 2.1 mg/dL (1.6-2.6); Potassium 3.7 mmol/L (3.5-5.1); Sodium Level 144 mmol/L (136-145)
[2019-10-25] MEDS: Levothyroxine 25 MCG TABLET PO (06:13)
[2019-10-25] MEDS: busPIRone 5 MG Tablet PO ×3 (06:13→21:00)
[2019-10-25] MEDS: Ondansetron 4 MG/2 ML Vial IV ×4 (06:23→20:56)
--- NOTE | 2019-10-25 07:46 | PN_ITS ---
Patient Problems: Active and Suspected Problems (Last Reviewed 10/19/19 @ 03:[address] Robel Abrams MD) Intractable vomiting (Acute) Diarrhea (Acute) Hypokalemia (Acute) Reason for Visit: Acute gastroenteritis Subjective: Patient is a 54-year-old lady with history of neuroendocrine tumor status post partial gastric resection and cholecystectomy who presented with a 5-day history of nausea and vomiting. Her evaluation and admission was consistent with dehydration with acute kidney injury and hypokalemia admitted to regular nursing floor for further management Objective: GENERAL: cooperative HEENT: Atraumatic; EYES; Anicteric, Normal Conjunctiva NECK; supple, normal thyroid, RESPIRATORY: Diminished to auscultation CARDIOVASCULAR: Regular S1 S2, GI: soft, normoactive bowel sounds, : No Renal angle tenderness; EXTREMITIES: No edema, no clubbing, MUSCULOSKELETAL: no muscle waisting NEURO: Awake; no lateralizing signs. SKIN: No Rash PSYCH; Flat affect Vitals/I&O's: Vital Signs Temp Pulse Resp BP Pulse Ox 98.2 F 55 L 18 121/66 H 95 10/25/19 03:30 10/25/19 03:30 10/25/19 03:30 10/25/19 03:30 10/25/19 07:05 Oxygen Delivery Method Room Air Weight: 70.1 kg Body Mass Index (BMI) 22.8 Finger Stick Blood Glucose 92 Intake and Output for Last 24 Hours 10/23/19 10/24/19 10/25/19 23:59 23:59 23:59 Intake Total 5372.5 / 5922.5 2246.5 / 2246.5 Output Total 150 / 300 1050 / 1050 Balance 5222.5 / 5622.5 1196.5 / 1196.5 Microbiology Past 72 Hours 10/24/19 08:50 Stool C. difficile DNA Amplification - Final Laboratory Results 10/24/19 06:24: Magnesium 1.5 L 10/25/19 05:05: WBC 8.4, RBC 3.33 L, Hgb 10.4 L, Hct 33.0 L, MCV 99.1 H D, MCH 31.2, MCHC 31.5 L D, RDW Std Deviation 48.4 H, RDW Coeff of Ross 13.5, Plt Count 283, MPV 9.7 10/25/19 05:05: Sodium 144, Potassium 3.7, Chloride 115 H, Carbon Dioxide 23.0, Anion Gap 6, BUN 7, Creatinine 0.74, Estim Creat Clear Calc 68.74, Est GFR (MDRD) Af Amer 104, Est GFR (MDRD) Non-Af 86, BUN/Creatinine Ratio 9.4 L, Glucose 79, Calcium 7.8 L, Magnesium 2.1 Current Medications Acetaminophen (Tylenol) 650 mg PO Q6H PRN PRN PRN Reason: Pain Score 1-10/Temp > 100.7 F Last Admin: 10/24/19 19:34 Dose: 650 mg Documented by: Al Hydroxide/Mg Hydroxide (Mylanta Ii) 30 ml PO Q6H PRN PRN PRN Reason: Gastric Burning Albuterol Sulfate (Ventolin Aerosols) 2.5 mg INHALATION Q2H PRN PRN PRN Reason: Dyspnea, wheezing Buspirone HCl (Buspar) 5 mg PO TID [facility] Last Admin: 10/25/19 06:13 Dose: 5 mg Documented by: Duloxetine HCl (Cymbalta) 120 mg PO DAILY [facility] Last Admin: 10/24/19 08:28 Dose: 120 mg Documented by: Enoxaparin Sodium (Lovenox) 40 mg SC DAILY [facility] Last Admin: 10/24/19 08:33 Dose: 40 mg Documented by: Guaifenesin (Robitussin) 20 ml PO Q4H PRN PRN PRN Reason: COUGH Hydralazine HCl (Apresoline Iv) 10 mg IV Q4H PRN PRN PRN Reason: SBP > 160 Hydromorphone HCl (Dilaudid Inj) 0.5 mg IV Q4H PRN PRN PRN Reason: Pain Score 6-10/10 Last Admin: 10/25/19 06:23 Dose: 0.5 mg Documented by: Sodium Chloride () 1,000 mls @ 150 mls/hr IV .Q6H40M [facility] Last Admin: 10/25/19 04:27 Dose: 150 mls/hr Documented by: Pantoprazole Sodium 40 mg/ (Sodium Chloride) 110 mls @ 330 mls/hr IV Q12 [facility] Last Infusion: 10/24/19 21:31 Dose: Infused Documented by: Levothyroxine Sodium (Synthroid) 25 mcg PO DAILY@0600 [facility] Last Admin: 10/25/19 06:13 Dose: 25 mcg Documented by: Lisinopril (Zestril) 40 mg PO DAILY [facility] Last Admin: 10/24/19 08:28 Dose: 40 mg Documented by: Lorazepam (Ativan) 1 mg PO TID PRN PRN PRN Reason: ANXIETY Last Admin: 10/25/19 01:25 Dose: 1 mg Documented by: Methocarbamol (Methocarbamol) 750 mg PO BID PRN PRN PRN Reason: muscle spasticity Last Admin: 10/24/19 19:38 Dose: 750 mg Documented by: Metoprolol Tartrate (Lopressor (Beta Mirna)) 50 mg PO BID [facility] Last Admin: 10/24/19 21:15 Dose: 50 mg Documented by: Nutritional Formula (Lactose Free) (Ensure Clear) 120 ml PO 4X/DAY [facility] Last Admin: 10/24/19 21:17 Dose: 120 ml Documented by: Ondansetron HCl (Zofran) 4 mg IV Q8H PRN PRN PRN Reason: NAUSEA/VOMITING Last Admin: 10/25/19 06:23 Dose: 4 mg Documented by: Oxycodone HCl (Oxyir) 10 mg PO Q4H PRN PRN PRN Reason: Pain Score 4-5/10 Last Admin: 10/24/19 23:53 Dose: 10 mg Documented by: Promethazine HCl (Phenergan) 12.5 mg IM Q4H PRN PRN PRN Reason: NAUSEA/VOMITING Last Admin: 10/24/19 19:34 Dose: 12.5 mg Documented by: Sodium Chloride () 10 - 40 ml IV UD PRN PRN Reason: SALINE FLUSH Last Admin: 10/25/19 06:23 Dose: 10 ml Documented by: Throat Lozenges (Cepacol Sore Throat Lozenge) 1 lozenge MUCOUS MEM Q2H PRN PRN PRN Reason: SORE THROAT Zolpidem Tartrate (Ambien (Generic)) 5 mg PO QHS PRN PRN PRN Reason: SLEEP Last Admin: 10/24/19 23:56 Dose: 5 mg Documented by: STROKE Vital Signs/Narrative: Vital Signs Pulse Ox 10/25/19 07:05 95 Medical Necessity - Tobacco Use Smoking Status: Current some day smoker Tobacco Use: Cigarettes Assessment/Plan All Active Problems (Last Reviewed 10/19/19 @ 03:[address] Robel Abrams MD) Nausea, vomiting and diarrhea (Acute) Intractable vomiting (Acute) Diarrhea (Acute) Hypokalemia (Acute) Sacral contusion (Acute) Presence of permanent cardiac pacemaker (Resolved 2013) Patient is a 54-year-old lady with history of neuroendocrine tumor status post partial gastric resection and cholecystectomy who presented with a 5-day history of nausea and vomiting. Her evaluation and admission was consistent with dehydration with acute kidney injury and hypokalemia admitted to regular nursing floor for further management 1. Acute gastroenteritis ?Admitted to regular nursing floor managed symptomatically -Diarrhea has subsided however she still complains of epigastric discomfort and requested to stay an additional day. 2. Acute kidney injury From dehydration from above on IV fluids with monitoring of electrolyte 3. Hypokalemia ?Secondary to gastric losses from above corrected per protocol 4. History of neuroendocrine tumor ?Status post partial gastric resection and cholecystectomy patient has a follow- up appointment with oncology Dr. Noel 5. Hypertension - Blood pressure controlled, home medications continued with dose adjustment as needed 6. Hypothyroidism - Patient is on levothyroxine home dose continued 7. History of sick sinus syndrome ?Status post pacemaker placement 8. Obstructive sleep apnea ?Patient is on CPAP at night 9. GERD ?Patient on PPI 10. History of depression with anxiety as well as history of PTSD ?Patient is on Cymbalta and BuSpar 11. DVT prophylaxis ?Lovenox Inpatient E&M: 62328 [facility] Hosp L2
[2019-10-25] MEDS: oxyCODONE 5 MG Tablet 10 MG PO ×3 (08:18→18:23)
[2019-10-25] MEDS: Methocarbamol 750 MG Tablet PO (09:46)
[2019-10-25] MEDS: Enoxaparin 40 MG/0.4 ML Syringe SC (09:48)
[2019-10-25] MEDS: Ensure Clear 120 ML Liquid PO ×4 (09:48→21:00)
[2019-10-25] MEDS: DULoxetine Hcl 60 MG Capsule 120 MG PO (09:48)
[2019-10-25] MEDS: Lisinopril 40 MG Tablet PO (09:48)
[2019-10-25] MEDS: Metoprolol Tartrate 50 MG Tablet PO ×2 (09:48→21:00)
[2019-10-25] MEDS: proMETHazine 25 MG/ML Syringe 12.5 MG IM (13:19)
[2019-10-25] MEDS: Zolpidem Tartrate 5 MG Tablet PO (21:00)
[2019-10-26] MEDS: LORazepam 1 MG Tablet PO ×4 (00:10→23:13)
[2019-10-26] MEDS: oxyCODONE 5 MG Tablet 10 MG PO ×5 (00:11→23:14)
[2019-10-26] MEDS: Acetaminophen 325 MG Tablet 650 MG PO ×2 (00:11→06:08)
--- NOTE | 2019-10-26 01:28 | CPS ---
PT STATES SHE TRIED TO WEAR CPAP YESTERDAY,BUT COULDNT TOLERATE IT.
[2019-10-26 04:00] VITALS: BP 143/80; PULSE 68; RESP 16; TEMP 36.7; O2SAT 98
[2019-10-26 05:27] LABS: Hematocrit 33.3 % (37-47); Hemoglobin 10.8 g/dL (12.0-15.0); Mean Corp Hgb Conc 32.4 g/dL (32-36); Mean Corpuscular Hgb 31.1 pg (27.0-32.0); Mean Platelet Vol. 9.3 fl (6.2-12.0); Platelet Count 287 K/mm3 (150-450); RBC Distribution Width CV 13.3 % (11.6-14.6); Red Blood Count 3.47 M/mm3 (4.2-5.4); White Blood Count 9.1 K/mm3 (4.4-11.0)
[2019-10-26 05:42] LABS: Anion Gap 5 (5-15); BUN 15 mg/dL (7-18); Calcium,Total 8.5 mg/dL (8.5-10.1); Chloride 111 mmol/L (98-107); Creatinine, Serum 0.94 mg/dL (0.55-1.02); EST Glomerular Filtration Rate 66 mL/min (>60); Est Glom Filt Rate - Afr Amer 80 mL/min (>60); Estimated Creatinine Clearance 54.11 ml/min; Glucose 84 mg/dL (74-106); Potassium 3.7 mmol/L (3.5-5.1); Sodium Level 142 mmol/L (136-145)
[2019-10-26] MEDS: busPIRone 5 MG Tablet PO ×3 (06:02→20:42)
[2019-10-26] MEDS: Levothyroxine 25 MCG TABLET PO (06:02)
[2019-10-26] MEDS: 0.9% Saline Lock 10 ML Syringe IV ×6 (06:07→23:15)
[2019-10-26] MEDS: Methocarbamol 750 MG Tablet PO (06:30)
[2019-10-26] MEDS: Ondansetron 4 MG/2 ML Vial IV (06:47)
[2019-10-26 10:00] VITALS: BP 130/74; PULSE 65; RESP 16; TEMP 36.7; O2SAT 98
[2019-10-26] MEDS: DULoxetine Hcl 60 MG Capsule 120 MG PO (10:07)
[2019-10-26 10:08] VITALS: PULSE 65
[2019-10-26] MEDS: Enoxaparin 40 MG/0.4 ML Syringe SC (10:08)
[2019-10-26] MEDS: Ensure Clear 120 ML Liquid PO ×3 (10:08→20:42)
[2019-10-26] MEDS: Metoprolol Tartrate 50 MG Tablet PO ×2 (10:08→20:41)
[2019-10-26] MEDS: Lisinopril 40 MG Tablet PO (10:08)
[2019-10-26] MEDS: Loperamide 2 MG Capsule 4 MG PO (10:18)
--- NOTE | 2019-10-26 12:39 | PN_ITS ---
Patient Problems: Active and Suspected Problems (Last Reviewed 10/19/19 @ 03:[address] Robel Abrams MD) Intractable vomiting (Acute) Diarrhea (Acute) Hypokalemia (Acute) Reason for Visit: N/V/D Subjective: Had watery diarrhea x5 today. Has tried loperamide x1 in past and was doubled over with RUQ pain. Vitals/I&O's: Vital Signs Temp Pulse Resp BP Pulse Ox 36.7 C 65 16 130/74 H 98 10/26/19 10:00 10/26/19 10:08 10/26/19 10:00 10/26/19 10:00 10/26/19 10:00 Oxygen Delivery Method Room Air Weight: 70.9 kg Body Mass Index (BMI) 22.8 Finger Stick Blood Glucose 92 Intake and Output for Last 24 Hours 10/24/19 10/25/19 10/26/19 23:59 23:59 23:59 Intake Total 5372.5 / 5922.5 3466.5 / 3686.5 480 / 480 Output Total 150 / 300 2250 / 2850 1250 / 1250 Balance 5222.5 / 5622.5 1216.5 / 836.5 -770 / -770 General: Alert, No apparent distress HEENT: Atraumatic, Normocephalic Oral: Moist Mucosa, No Gingival or Mucosal Lesions/ Ulcerations Neck: No Nodes, Thyroid Normal Size and Texture Lungs: Clear to auscultation, Normal air movement, No rhonchi, No wheeze, No rales Cardiovascular: Regular rate, Regular Rhythm, Normal S1, Normal S2 Abdomen: Bowel Sounds Present, Soft, Non-Distended, Tender - mild diffusely tender Extremities: No edema, No Calf Tenderness Skin: No rashes, No breakdown Psych/Mental Status: Normal Affect, Appropriate Microbiology Past 72 Hours 10/24/19 08:50 Stool C. difficile DNA Amplification - Final Laboratory Results 10/26/19 05:00: WBC 9.1, RBC 3.47 L, Hgb 10.8 L, Hct 33.3 L, MCV 96.0, MCH 31.1, MCHC 32.4, RDW Std Deviation 47.0 H, RDW Coeff of Ross 13.3, Plt Count 287, MPV 9.3 10/26/19 05:00: Sodium 142, Potassium 3.7, Chloride 111 H, Carbon Dioxide 26.0, Anion Gap 5, BUN 15, Creatinine 0.94, Estim Creat Clear Calc 54.11, Est GFR (MDRD) Af Amer 80, Est GFR (MDRD) Non-Af 66, BUN/Creatinine Ratio 16.0, Glucose 84, Calcium 8.5 Current Medications Acetaminophen (Tylenol) 650 mg PO Q6H PRN PRN PRN Reason: Pain Score 1-10/Temp > 100.7 F Last Admin: 10/26/19 06:08 Dose: 650 mg Documented by: Al Hydroxide/Mg Hydroxide (Mylanta Ii) 30 ml PO Q6H PRN PRN PRN Reason: Gastric Burning Albuterol Sulfate (Ventolin Aerosols) 2.5 mg INHALATION Q2H PRN PRN PRN Reason: Dyspnea, wheezing Buspirone HCl (Buspar) 5 mg PO TID [facility] Last Admin: 10/26/19 06:02 Dose: 5 mg Documented by: Duloxetine HCl (Cymbalta) 120 mg PO DAILY [facility] Last Admin: 10/26/19 10:07 Dose: 120 mg Documented by: Enoxaparin Sodium (Lovenox) 40 mg SC DAILY [facility] Last Admin: 10/26/19 10:08 Dose: 40 mg Documented by: Guaifenesin (Robitussin) 20 ml PO Q4H PRN PRN PRN Reason: COUGH Hydralazine HCl (Apresoline Iv) 10 mg IV Q4H PRN PRN PRN Reason: SBP > 160 Hydromorphone HCl (Dilaudid Inj) 0.5 mg IV Q4H PRN PRN PRN Reason: Pain Score 6-10/10 Last Admin: 10/25/19 20:56 Dose: 0.5 mg Documented by: Pantoprazole Sodium 40 mg/ (Sodium Chloride) 110 mls @ 330 mls/hr IV Q12 [facility] Last Infusion: 10/26/19 10:26 Dose: Infused Documented by: Levothyroxine Sodium (Synthroid) 25 mcg PO DAILY@0600 [facility] Last Admin: 10/26/19 06:02 Dose: 25 mcg Documented by: Lisinopril (Zestril) 40 mg PO DAILY [facility] Last Admin: 10/26/19 10:08 Dose: 40 mg Documented by: Loperamide HCl (Imodium) 2 mg PO Q6H PRN PRN PRN Reason: Diarrhea Lorazepam (Ativan) 1 mg PO TID PRN PRN PRN Reason: ANXIETY Last Admin: 10/26/19 10:47 Dose: 1 mg Documented by: Methocarbamol (Methocarbamol) 750 mg PO BID PRN PRN PRN Reason: muscle spasticity Last Admin: 10/26/19 06:30 Dose: 750 mg Documented by: Metoprolol Tartrate (Lopressor (Beta Mirna)) 50 mg PO BID [facility] Last Admin: 10/26/19 10:08 Dose: 50 mg Documented by: Nutritional Formula (Lactose Free) (Ensure Clear) 120 ml PO 4X/DAY [facility] Last Admin: 10/26/19 10:08 Dose: 120 ml Documented by: Ondansetron HCl (Zofran) 4 mg IV Q4H PRN PRN PRN Reason: NAUSEA/VOMITING Last Admin: 10/26/19 06:47 Dose: 4 mg Documented by: Oxycodone HCl (Oxyir) 10 mg PO Q4H PRN PRN PRN Reason: Pain Score 4-5/10 Last Admin: 10/26/19 10:18 Dose: 10 mg Documented by: Promethazine HCl (Phenergan) 12.5 mg IM Q4H PRN PRN PRN Reason: NAUSEA/VOMITING Last Admin: 10/25/19 13:19 Dose: 12.5 mg Documented by: Sodium Chloride () 10 - 40 ml IV UD PRN PRN Reason: SALINE FLUSH Last Admin: 10/26/19 06:45 Dose: 10 ml Documented by: Throat Lozenges (Cepacol Sore Throat Lozenge) 1 lozenge MUCOUS MEM Q2H PRN PRN PRN Reason: SORE THROAT Zolpidem Tartrate (Ambien (Generic)) 5 mg PO QHS PRN PRN PRN Reason: SLEEP Last Admin: 10/25/19 21:00 Dose: 5 mg Documented by: STROKE Vital Signs/Narrative: Vital Signs Temp Pulse Resp BP Pulse Ox 10/26/19 10:08 65 10/26/19 10:00 36.7 C 65 16 130/74 H 98 Medical Necessity - Tobacco Use Smoking Status: Current some day smoker Tobacco Use: Cigarettes Assessment/Plan All Active Problems (Last Reviewed 08/10/20 @ 03:[address] Robel Abrams MD) Nausea, vomiting and diarrhea (Acute) Intractable vomiting (Acute) Diarrhea (Acute) Hypokalemia (Acute) Sacral contusion (Acute) Presence of permanent cardiac pacemaker (Resolved 2013) 1. intractable nausea, vomiting, diarrhea * she is concerned that it may be a recurrence of her neuroendocrine tumor * has been told she has IBS * start PRN loperamide * clarified that patient does not smoke THC 2. hypokalemia * overall better * replace further * 2/2 diarrhea and vomiting. 3. VTE prophylaxis: LMWH Inpatient E&M: 55230 Subs Hosp L2
[2019-10-26] MEDS: HYDROmorphone 0.5 MG/0.5 ML SYRINGE IV ×2 (13:53→20:35)
--- NOTE | 2019-10-26 14:26 | CASEMGMT ---
RN CM in to discuss discharge planning with patient. Patient would like [facility] for nursing and therapy. RN CM made referral to [facility] and they are able to accept. CM will continue to follow this patient and plan for a safe discharge.
[2019-10-26 16:00] VITALS: BP 126/74; PULSE 65; RESP 16; TEMP 36.7; O2SAT 98
--- NOTE | 2019-10-26 19:30 | CPS ---
Patient doesn't want to wear BiPAP machine anymore.Understands benefits of wearing machine. Still doesn't want to wear machine. APPRENTICE INSTRUMENT TECHNICIAN pulled machine from patient's room for this reason.
[2019-10-26 20:20] VITALS: BP 158/90; PULSE 70; RESP 18; TEMP 36.8; O2SAT 97
[2019-10-26 20:41] VITALS: PULSE 70
[2019-10-26] MEDS: Zolpidem Tartrate 5 MG Tablet PO (20:45)
[2019-10-27] MEDS: 0.9% Saline Lock 10 ML Syringe IV ×4 (01:19→10:19)
[2019-10-27] MEDS: HYDROmorphone 0.5 MG/0.5 ML SYRINGE IV ×3 (01:19→10:19)
[2019-10-27] MEDS: Methocarbamol 750 MG Tablet PO (01:24)
[2019-10-27 02:02] VITALS: BP 139/80; PULSE 61; RESP 18; TEMP 36.8; O2SAT 97
[2019-10-27] MEDS: oxyCODONE 5 MG Tablet 10 MG PO ×2 (03:39→09:10)
[2019-10-27] MEDS: Acetaminophen 325 MG Tablet 650 MG PO (03:40)
[2019-10-27] MEDS: busPIRone 5 MG Tablet PO (05:37)
[2019-10-27] MEDS: Levothyroxine 25 MCG TABLET PO (05:37)
[2019-10-27 05:48] LABS: Hematocrit 32.7 % (37-47); Hemoglobin 10.5 g/dL (12.0-15.0); Mean Corp Hgb Conc 32.1 g/dL (32-36); Mean Corpuscular Hgb 30.8 pg (27.0-32.0); Mean Corpuscular Volume 95.9 fL (81-99); Mean Platelet Vol. 9.2 fl (6.2-12.0); Platelet Count 273 K/mm3 (150-450); RBC Distribution Width CV 13.2 % (11.6-14.6); RBC Distribution Width SD 45.7 fl (35.1-43.9); Red Blood Count 3.41 M/mm3 (4.2-5.4); White Blood Count 9.9 K/mm3 (4.4-11.0)
[2019-10-27 06:11] LABS: Anion Gap 5 (5-15); BUN 12 mg/dL (7-18); BUN/Creat Ratio 13.6 RATIO (10-20); Calcium,Total 8.5 mg/dL (8.5-10.1); Chloride 110 mmol/L (98-107); Creatinine, Serum 0.88 mg/dL (0.55-1.02); EST Glomerular Filtration Rate 71 mL/min (>60); Est Glom Filt Rate - Afr Amer 86 mL/min (>60); Glucose 86 mg/dL (74-106); Potassium 3.7 mmol/L (3.5-5.1); Sodium Level 140 mmol/L (136-145)
[2019-10-27] MEDS: Ondansetron 4 MG/2 ML Vial IV (09:10)
[2019-10-27 10:00] VITALS: BP 138/62; PULSE 61; RESP 16; TEMP 36.9; O2SAT 95
[2019-10-27] MEDS: DULoxetine Hcl 60 MG Capsule 120 MG PO (10:03)
[2019-10-27] MEDS: Enoxaparin 40 MG/0.4 ML Syringe SC (10:04)
[2019-10-27] MEDS: Lisinopril 40 MG Tablet PO (10:04)
[2019-10-27 10:05] VITALS: BP 138/62; PULSE 61
[2019-10-27] MEDS: Metoprolol Tartrate 50 MG Tablet PO (10:05)
[2019-10-27] MEDS: Ensure Clear 120 ML Liquid PO (10:20)
--- NOTE | 2019-10-27 10:54 | DCINST_ITS ---
- Discharge Diagnoses Current Active Problems: Current Active and Chronic Problems (Last Reviewed 10/19/19 @ 03:[address] Robel Abrams MD) ELOY (obstructive sleep apnea) (Chronic) Intractable vomiting (Acute) Diarrhea (Acute) Hypokalemia (Acute) You will use the following diet at home:: Other - bland, advance as tolerated Your food should be the consistency of: Regular Discharge Activity: Return to Normal Activity Call your doctor if you observe: Fever of 101 or Higher Allergies/Adverse Reactions: Allergies latex Allergy (Intermediate, Verified 10/23/19 23:30) skin irritation aspirin Adverse Reaction (Severe, Verified 10/23/19 23:30) Nausea/Vom/Diarrhea erythromycin base [Erythromycin Base] Adverse Reaction (Severe, Verified 10/23/19 23:30) Vomiting,diarrhea NSAIDS (Non-Steroidal Anti-Inflamma Adverse Reaction (Severe, Verified 10/23/19 23:30) Vomiting,diarrhea Medications to take at Discharge Duloxetine Hcl [Cymbalta] 120 mg PO DAILY 03/28/15 buspirone 5 mg tablet 5 mg PO TID #90 tab 02/03/19 Lorazepam 1 mg PO TID PRN PRN 06/30/19 Zolpidem Tartrate [Ambien] 10 mg PO QHS 06/30/19 omeprazole 40 mg capsule,delayed release 40 mg PO DAILY #90 cap 09/10/19 metoprolol tartrate 50 mg tablet 50 mg PO BID #180 tab 09/15/19 Levothyroxine Sodium [Synthroid] 25 mcg PO DAILY 09/29/19 lisinopril 40 mg tablet 40 mg PO DAILY #90 tab 10/02/19 methocarbamol 750 mg tablet 750 mg PO BID PRN #180 tab 10/02/19 proMETHazine tablet [Phenergan tablet] 25 mg PO Q6H PRN PRN #10 tab 10/22/19 Primary Care Physician: Charla Wadsworth MD [Primary Care Provider] - Within 2 Weeks Test Results: Test results from this visit will be discussed in further detail at your follow- up appointment, if applicable. Please Follow Up With: Raegan Noel MD When: 11/06/2019, already scheduled Please Follow Up With: Samuel Keys MD When: 12/03/2019, already scheduled Proposed Discharge Date: 10/27/19
--- NOTE | 2019-10-27 10:57 | DS.PCM_ITS ---
Discharge Date and Diagnosis - Problem List Patient Problems: Active and Suspected Problems (Last Reviewed 10/19/19 @ 03:[address] Robel Abrams MD) Intractable vomiting (Acute) Diarrhea (Acute) Hypokalemia (Acute) Date of Admission: 10/24/19 Date of Discharge: 10/27/19 - Primary Discharge Diagnosis Acute Problems: Active Problems (Last Reviewed 10/19/19 @ 03:[address] Robel Abrams MD) Intractable vomiting (Acute) Diarrhea (Acute) Hypokalemia (Acute) - Secondary Discharge Diagnosis Chronic Problems: Chronic Problems (Last Reviewed 10/19/19 @ 03:[address] Robel Abrams MD) ELOY (obstructive sleep apnea) (Chronic) COPD (chronic obstructive pulmonary disease) (Chronic) Polycythemia (Chronic) Primary malignant neuroendocrine tumor of stomach (Chronic) Anxiety and depression (Chronic) Intermittent palpitations (Chronic) Essential (primary) hypertension (Chronic) Sick sinus syndrome (Chronic) Tobacco dependence syndrome (Chronic) Hospital Course and Treatment Operations: None Procedures: None Summary of Care Provided: The patient is a 54 year old F abdominal nausea vomiting diarrhea. Patient was also found to be hypokalemic with a potassium of 3.1. [place] to be related with the vomiting and diarrhea but also complicated by the hydrochlorothiazide that she takes. Patient did receive potassium replacements and her potassium has been still improved to 3.7. Patient continues to complain of this vomiting and diarrhea. Yesterday, patient told me that she had 5 bouts of diarrhea. I told her that she could take an Imodium to help with. Today, patient said that she is not been having any diarrhea and when I asked if the Imodium helped, she has stated and stated that it did not and that she was not having any diarrhea anyways when it was given to her but then I told her that she told me yesterday that she was having 5 bowel movements with diarrhea which is why I ordered the Imodium for her. I recommended patient increase her PPI to twice daily, and add Zofran in addition to her Phenergan and to try Bentyl. She seemed in agreement with that but then as I was raised to walk about the room she asked me if I can give her a few narcotics. She stated that she could even have 1 of her friends watch over it so as not to abuse it. I told her I was not going to and was concerned with a essentially aggravating her GI symptoms. She became very upset at that point time and is stated that that she would not take any of the medications that I had recommended for her. I told her that those are nonessential anyway. Patient will be discharged home in stable condition. I am concerned there may be some ulterior motives to some of her complaints. [] Plan, patient is concerned that her symptoms are related with her recurrence of neuroendocrine tumor. Patient had a CAT scan previously that showed no evidence of any masses. Patient has been previously diagnosed with IBS but she denies that those are was contributing to her symptoms. Patient is to follow-up with oncology. Patient was stating that it was tomorrow but it looks like it is 28. It looks like that she will eventually need a PET scan. Told patient that she would not be able to have a PET scan in the hospital. Patient Problems: Active and Suspected Problems (Last Reviewed 10/19/19 @ 03:[address] Robel Abrams MD) Intractable vomiting (Acute) Diarrhea (Acute) Hypokalemia (Acute) - Physical Exam Vitals/I&O's: Vital Signs Temp Pulse Resp BP Pulse Ox 36.9 C 61 16 138/62 H 95 10/27/19 10:00 10/27/19 10:05 10/27/19 10:00 10/27/19 10:05 10/27/19 10:00 Oxygen Delivery Method Room Air Weight: 70.9 kg Body Mass Index (BMI) 22.8 Finger Stick Blood Glucose 92 Intake and Output for Last 24 Hours 10/25/19 10/26/19 10/27/19 23:59 23:59 23:59 Intake Total 3466.5 / 3686.5 590 / 590 200 / 200 Output Total 2250 / 2850 1250 / 1250 Balance 1216.5 / 836.5 -660 / -660 200 / 200 General: Alert, No apparent distress, - - eating a sandwhich HEENT: Atraumatic, Normocephalic Lungs: Clear to auscultation, Normal air movement, No rhonchi, No wheeze, No rales Cardiovascular: Regular rate, Regular Rhythm, Normal S1, Normal S2, No murmurs Abdomen: Bowel Sounds Present, Soft, Non Tender, Non-Distended, No Hepato- splenomegaly Extremities: No edema, No Calf Tenderness Microbiology Past 72 Hours 10/24/19 08:50 Stool C. difficile DNA Amplification - Final Laboratory Results 10/27/19 05:28: WBC 9.9, RBC 3.41 L, Hgb 10.5 L, Hct 32.7 L, MCV 95.9, MCH 30.8, MCHC 32.1, RDW Std Deviation 45.7 H, RDW Coeff of Ross 13.2, Plt Count 273, MPV 9.2 10/27/19 05:28: Sodium 140, Potassium 3.7, Chloride 110 H, Carbon Dioxide 25.0, Anion Gap 5, BUN 12, Creatinine 0.88, Estim Creat Clear Calc 57.80, Est GFR (MDRD) Af Amer 86, Est GFR (MDRD) Non-Af 71, BUN/Creatinine Ratio 13.6, Glucose 86, Calcium 8.5 Current Medications Acetaminophen (Tylenol) 650 mg PO Q6H PRN PRN PRN Reason: Pain Score 1-10/Temp > 100.7 F Last Admin: 10/27/19 03:40 Dose: 650 mg Documented by: Al Hydroxide/Mg Hydroxide (Mylanta Ii) 30 ml PO Q6H PRN PRN PRN Reason: Gastric Burning Albuterol Sulfate (Ventolin Aerosols) 2.5 mg INHALATION Q2H PRN PRN PRN Reason: Dyspnea, wheezing Buspirone HCl (Buspar) 5 mg PO TID [facility] Last Admin: 10/27/19 05:37 Dose: 5 mg Documented by: Duloxetine HCl (Cymbalta) 120 mg PO DAILY [facility] Last Admin: 10/27/19 10:03 Dose: 120 mg Documented by: Enoxaparin Sodium (Lovenox) 40 mg SC DAILY [facility] Last Admin: 10/27/19 10:04 Dose: 40 mg Documented by: Guaifenesin (Robitussin) 20 ml PO Q4H PRN PRN PRN Reason: COUGH Hydralazine HCl (Apresoline Iv) 10 mg IV Q4H PRN PRN PRN Reason: SBP > 160 Pantoprazole Sodium 40 mg/ (Sodium Chloride) 110 mls @ 330 mls/hr IV Q12 [facility] Last Admin: 10/27/19 10:03 Dose: 330 mls/hr Documented by: Levothyroxine Sodium (Synthroid) 25 mcg PO DAILY@0600 [facility] Last Admin: 10/27/19 05:37 Dose: 25 mcg Documented by: Lisinopril (Zestril) 40 mg PO DAILY [facility] Last Admin: 10/27/19 10:04 Dose: 40 mg Documented by: Loperamide HCl (Imodium) 2 mg PO Q6H PRN PRN PRN Reason: Diarrhea Lorazepam (Ativan) 1 mg PO TID PRN PRN PRN Reason: ANXIETY Last Admin: 10/26/19 23:13 Dose: 1 mg Documented by: Methocarbamol (Methocarbamol) 750 mg PO BID PRN PRN PRN Reason: muscle spasticity Last Admin: 10/27/19 01:24 Dose: 750 mg Documented by: Metoprolol Tartrate (Lopressor (Beta Mirna)) 50 mg PO BID [facility] Last Admin: 10/27/19 10:05 Dose: 50 mg Documented by: Nutritional Formula (Lactose Free) (Ensure Clear) 120 ml PO 4X/DAY [facility] Last Admin: 10/27/19 10:20 Dose: 120 ml Documented by: Ondansetron HCl (Zofran) 4 mg IV Q4H PRN PRN PRN Reason: NAUSEA/VOMITING Last Admin: 10/27/19 09:10 Dose: 4 mg Documented by: Promethazine HCl (Phenergan) 12.5 mg IM Q4H PRN PRN PRN Reason: NAUSEA/VOMITING Last Admin: 10/25/19 13:19 Dose: 12.5 mg Documented by: Sodium Chloride () 10 - 40 ml IV UD PRN PRN Reason: SALINE FLUSH Last Admin: 10/27/19 10:19 Dose: 10 ml Documented by: Throat Lozenges (Cepacol Sore Throat Lozenge) 1 lozenge MUCOUS MEM Q2H PRN PRN PRN Reason: SORE THROAT Zolpidem Tartrate (Ambien (Generic)) 5 mg PO QHS PRN PRN PRN Reason: SLEEP Last Admin: 10/26/19 20:45 Dose: 5 mg Documented by: Discharge Diet: No Restrictions Discharge Activity: Return to Normal Activity Call your doctor if you observe: Fever of 101 or Higher Home Medications: Medications to take at Discharge Duloxetine Hcl [Cymbalta] 120 mg PO DAILY 03/28/15 buspirone 5 mg tablet 5 mg PO TID #90 tab 02/03/19 Lorazepam 1 mg PO TID PRN PRN 06/30/19 Zolpidem Tartrate [Ambien] 10 mg PO QHS 06/30/19 omeprazole 40 mg capsule,delayed release 40 mg PO DAILY #90 cap 09/10/19 metoprolol tartrate 50 mg tablet 50 mg PO BID #180 tab 09/15/19 Levothyroxine Sodium [Synthroid] 25 mcg PO DAILY 09/29/19 lisinopril 40 mg tablet 40 mg PO DAILY #90 tab 10/02/19 methocarbamol 750 mg tablet 750 mg PO BID PRN #180 tab 10/02/19 proMETHazine tablet [Phenergan tablet] 25 mg PO Q6H PRN PRN #10 tab 10/22/19 Primary Care Physician: Charla Wadsworth MD [Primary Care Provider] - Within 2 Weeks Please Follow Up With: Raegan Noel MD When: 11/06/2019, already scheduled Please Follow Up With: Samuel Keys MD When: 12/03/2019, already scheduled Disposition: Home Minutes spent on discharge:: 32 Patient Condition:: Fair Medical Necessity - Tobacco Use Smoking Status: Current some day smoker Tobacco Use: Cigarettes Meaningful Use Info Meaningful Use Diagnoses (Choose all that apply): None applicable Inpatient E&M: 94044 [facility] Hosp
--- NOTE | 2019-10-27 11:55 | NURSING ---
PT WANTING TO LEAVE SO SHE DIDN'T MISS HER APPT - 10/[address] HOBSON- PT STILL HAVING SOME POLANCO AND NAUSEA PT SAYS THAT SHE ALSO HAVES THESE SYMPTOMS AT HOME VOIDING - UP AD [facility]EDR[facility]- SAID THAT IF DIDN'T D/C HER SHE WAS LEAVING ANYWAYS
--- NOTE | 2019-10-27 11:57 | PHA.DC.MR ---
Pharmacy Service has performed discharge medication reconciliation for this patient. No new medications issued at time of medlist review. medications reviewed are from previously reported home medications. Home Medications Duloxetine Hcl [Cymbalta] 120 mg PO DAILY 03/28/15 buspirone 5 mg tablet 5 mg PO TID #90 tab 02/03/19 Lorazepam 1 mg PO TID PRN PRN 06/30/19 Zolpidem Tartrate [Ambien] 10 mg PO QHS 06/30/19 omeprazole 40 mg capsule,delayed release 40 mg PO DAILY #90 cap 09/10/19 metoprolol tartrate 50 mg tablet 50 mg PO BID #180 tab 09/15/19 Levothyroxine Sodium [Synthroid] 25 mcg PO DAILY 09/29/19 lisinopril 40 mg tablet 40 mg PO DAILY #90 tab 10/02/19 methocarbamol 750 mg tablet 750 mg PO BID PRN #180 tab 10/02/19 proMETHazine tablet [Phenergan tablet] 25 mg PO Q6H PRN PRN #10 tab 10/22/19 The patient's discharge medication list was reviewed for discrepancies and discrepancies were resolved.
--- NOTE | 2019-10-29 15:33 | CASEMGMT ---
AKIKO STACY Discharge Follow-up Phone Call: FELICIA: Alber Strata: 4 Call Date: 10/27/19 Discharge Date: 10/29/19 Time of Call: 1530 Duration: 5 min Admitting Diagnosis: N/V/D AKIKO STACY completed follow-up phone call with patient after recent hospitalization. Patient states she is feeling weak. Patient states that [facility] was there to see patient today. Patient has follow-up appts scheduled. Patient had no questions regarding discharge instructions. Patient had no further questions at this time.
== END 2019-10-27 11:51 | disposition home health service (06) | DRG 641 ==
LOC: ED 10-24 01:07 → MS3 10-24 01:35
PROVIDERS: Internal Medicine; Admitting Provider Family Medicine; Emergency Provider Emergency Medicine; PCP Internal Medicine; Referring Provider Family Medicine
DX: E86.0 Dehydration (principal); K52.9 Noninfective gastroenteritis and colitis, unspecified; E87.6 Hypokalemia; T50.2X5A Adverse effect of carbonic-anhydrase inhibitors, benzothiadiazides and other diuretics, initial encounter; Y92.9 Unspecified place or not applicable; G89.4 Chronic pain syndrome; J44.9 Chronic obstructive pulmonary disease, unspecified; I49.5 Sick sinus syndrome; I10 Essential (primary) hypertension; E03.9 Hypothyroidism, unspecified; E78.49 Other hyperlipidemia; K21.9 Gastro-esophageal reflux disease without esophagitis; G47.33 Obstructive sleep apnea (adult) (pediatric); F43.10 Post-traumatic stress disorder, unspecified; F32.9 Major depressive disorder, single episode, unspecified; F41.9 Anxiety disorder, unspecified; F17.210 Nicotine dependence, cigarettes, uncomplicated; Z79.890 Hormone replacement therapy; Z79.899 Other long term (current) drug therapy; Z85.028 Personal history of other malignant neoplasm of stomach; Z95.0 Presence of cardiac pacemaker; Z90.3 Acquired absence of stomach [part of]
CPT/HCPCS: 36415; 80048; 80053; 81001; 83690; 83735; 84100; 85025; 85027; 87493; 87635; 94002; 94660; 94799; 96361; 96374; 97110; 97162; 97165; 97530; 97535; 99251; 99285; J7030; J7040; A4216; G0463; J2405; U0003

== ENCOUNTER 2019-10-30 12:10 | Outpatient (RCR) | payer MEDICARE, MEDICAID, SELFPAY ==
[2019-10-24 02:37] VITALS: BMI 22.8
[2019-10-30 13:05] LABS: Anion Gap 7 (5-15); BUN 9 mg/dL (7-18); BUN/Creat Ratio 8.9 RATIO (10-20); Calcium,Total 9.2 mg/dL (8.5-10.1); Chloride 111 mmol/L (98-107); Creatinine, Serum 1.01 mg/dL (0.55-1.02); EST Glomerular Filtration Rate 61 mL/min (>60); Est Glom Filt Rate - Afr Amer 73 mL/min (>60); Glucose 90 mg/dL (74-106); Potassium 3.1 mmol/L (3.5-5.1); Sodium Level 145 mmol/L (136-145)
== END 2019-11-09 18:00 | disposition home or self-care (01) ==
LOC: HHLAB 12:10
PROVIDERS: PCP Internal Medicine
DX: E87.6 Hypokalemia (principal)
CPT/HCPCS: 80048

== ENCOUNTER 2019-10-30 16:01 | Emergency (ER) | payer MEDICARE, MEDICAID, SELFPAY ==
[2019-10-24 02:37] VITALS: BMI 22.8
[2019-10-30 16:02] VITALS: BP 199/106; PULSE 66; RESP 16; TEMP 37.1; O2SAT 97; BMI 32.5
--- NOTE | 2019-10-30 16:13 | EKG12_ITS ---
Test Reason : ABNL LABS Blood Pressure : / mmHG Vent. Rate : 062 BPM Atrial Rate : 062 BPM P-R Int : 154 ms QRS Dur : 084 ms QT Int : 452 ms P-R-T Axes : 010 035 036 degrees QTc Int : 458 ms Normal sinus rhythm Normal ECG Confirmed by CHERI GAUTAM, NURA ([id number]), primer expeditor and drier OTIS RUIZ ([id number]) on 11/03/2019 9:02:21 AM Referred By: FLAQUITO Confirmed By:RASHAWN ALONZO MD
[2019-10-30] MEDS: 0.9% Normal Saline 1,000 ML 150 ML IV (16:34)
[2019-10-30 16:42] LABS: Absolute Lymphocyte Count 3.15 X10^3/uL (0.83-4.51); Absolute Neutrophil Count 7.6 X10^3/uL (2.0-7.7); Basophil# 0.04 X10^3/uL; Basophil% 0.3 % (0-1); Eosinophil# 0.23 X10^3/uL; Eosinophils% 1.9 % (0-5); Hemoglobin 12.1 g/dL (12.0-15.0); Lymphocyte # 3.15 X10^3/ul (4.0); Lymphocyte % 26.5 % (19-41); Mean Corp Hgb Conc 33.6 g/dL (32-36); Mean Corpuscular Hgb 30.7 pg (27.0-32.0); Mean Corpuscular Volume 91.4 fL (81-99); Mean Platelet Vol. 9.1 fl (6.2-12.0); Monocyte# 0.79 X10^3/uL; Monocyte% 6.6 % (0-10); NRBC Flagged by Analyzer 0 % (0-5); Neutrophil # 7.62 X10^3/uL (2.7-7.7); Neutrophil % 64.2 % (47-70); Platelet Count 337 K/mm3 (150-450); Red Blood Count 3.94 M/mm3 (4.2-5.4); White Blood Count 11.9 K/mm3 (4.4-11.0)
[2019-10-30 17:21] LABS: Anion Gap 5 (5-15); BUN 8 mg/dL (7-18); BUN/Creat Ratio 8.8 RATIO (10-20); Calcium,Total 8.7 mg/dL (8.5-10.1); Chloride 110 mmol/L (98-107); Creatinine, Serum 0.91 mg/dL (0.55-1.02); EST Glomerular Filtration Rate 68 mL/min (>60); Est Glom Filt Rate - Afr Amer 82 mL/min (>60); Glucose 91 mg/dL (74-106); Magnesium 1.5 mg/dL (1.6-2.6); Sodium Level 142 mmol/L (136-145)
--- NOTE | 2019-10-30 17:27 | ED.DCSUM_ITS ---
- ER Visit Summary Date of Service: 10/30/19 Chief Complaint: [Body cramping and concern for low potassium] History of Present Illness: The patient is a 54 F [S to the emergency department with complaint of cramps and concern for low potassium. Patient states that her cramping started yesterday in spite of involving her whole body. Patient states she is had similar symptoms recently has been admitted for the same thing in the past and is required potassium. Patient states that she has been drinking fluids and staying hydrated. Patient's been drinking Gatorade. She is not currently on replacement potassium. Patient does have history of sick sinus syndrome and a neuroendocrine tumor. Patient's had prior appendectomy, cholecystectomy, and hysterectomy. Patient has a pacemaker.] Physical Examination: [HEENT-PERRLA, EOMI. Cranial nerves II through XII grossly intact. TMs clear. Mucous membranes moist. No adenopathy. Negative for facial twitching. Cardiovascular-regular rate and rhythm without murmur or ectopy Lungs-clear to auscultation, chest wall stable without crepitus or subcu emphysema Abdomen-normoactive bowel sounds, soft, nontender, no rebound or rigidity, no peritoneal signs. Extremities-intact ?4, normal range of motion, normal pulses, atraumatic] Test Results: [EKG obtained arrival shows sinus rhythm with a ventricular rate of 62 bpm with no acute ST segment changes. CBC with external count 11.9, hemoglobin 12, hematocrit 36, platelets 337. Chemistries unremarkable other than a depressed potassium of 3.0. Magnesium was just minimally low at 1.5.] Emergency Department Course and Treatment: [Patient was given potassium chloride 40 mEq p.o.] Treatment Plan: [We will be started on potassium chloride 20 mEq daily. Patient advised to follow-up with primary care physician within next 5 to 7 days for repeat potassium level.] Disposition: [Discharged home in stable condition] Impression: [Hypokalemia Muscle cramping] This note was generated with [employer] dictation software. It may contain incorrect words, spelling, and punctuation that were not noted in review of the chart prior to signing ED Disposition - Plan for ED Patient: Referrals: Charla Wadsworth MD [Primary Care Provider] -
--- NOTE | 2019-10-30 17:30 | ED.DEP ---
ED Disposition - Plan for ED Patient: Instructions: ED Potassium Deficiency Prescriptions: Potassium Chloride [K-Dur] 20 meq PO DAILY #30 tab Prescription Printed Referrals: Charla Wadsworth MD [Primary Care Provider] -
[2019-10-30 17:43] VITALS: BP 176/90
== END 2019-10-30 17:45 | disposition home or self-care (01) ==
LOC: ED 16:33
PROVIDERS: Emergency Provider Emergency Medicine; PCP Internal Medicine
DX: E87.6 Hypokalemia (principal); R25.2 Cramp and spasm; E83.42 Hypomagnesemia; I49.5 Sick sinus syndrome; Z79.899 Other long term (current) drug therapy; Z95.0 Presence of cardiac pacemaker
CPT/HCPCS: 80048; 83735; 85025; 93005; 96360; 99285; J7030

== ENCOUNTER → 2019-11-10 15:00 | Outpatient (CLI) | payer MEDICARE, MEDICAID, SELFPAY ==
[2019-11-10 14:24] VITALS: BMI 32.1
[2019-11-10 17:37] LABS: ALB/GLOB Ratio 0.9 RATIO (0.9-2.4); AST(SGOT) 16 U/L (15-37); Alanine Aminotransfer ALT/SGPT 27 U/L (13-56); Albumin, Serum 3.7 g/dL (3.2-5.0); Alkaline Phosphatase 116 U/L (45-117); Anion Gap 5 (5-15); BUN 21 mg/dL (7-18); BUN/Creat Ratio 22.7 RATIO (10-20); Calcium,Total 9.6 mg/dL (8.5-10.1); Chloride 115 mmol/L (98-107); Creatinine, Serum 0.93 mg/dL (0.55-1.02); EST Glomerular Filtration Rate 67 mL/min (>60); Est Glom Filt Rate - Afr Amer 81 mL/min (>60); Globulin 4.3 g/dL (2.2-4.2); Glucose 96 mg/dL (74-106); Potassium 3.9 mmol/L (3.5-5.1); Sodium Level 143 mmol/L (136-145)
== END ==
PROVIDERS: PCP Internal Medicine; Referring Provider Internal Medicine; Visit Provider Internal Medicine
DX: C7A.8 Other malignant neuroendocrine tumors (principal); R11.2 Nausea with vomiting, unspecified; R19.7 Diarrhea, unspecified
CPT/HCPCS: 36415; 80053

== ENCOUNTER 2019-11-13 14:35 | Emergency (ER) | payer MEDICARE, MEDICAID, SELFPAY ==
[2019-11-10 14:24] VITALS: BMI 32.1
[2019-11-13 14:36] VITALS: BP 151/108; PULSE 66; RESP 14; TEMP 36.2; O2SAT 98; BMI 32.2
--- NOTE | 2019-11-13 14:52 | CT_ITS ---
STUDY: CT ABDOMEN AND PELVIS WITH CONTRAST REASON FOR EXAM: Female, 54 years old. Epigastric pain for one half years now worsening. History of neuroendocrine cancer of the stomach. Status post partial gastrectomy, hysterectomy, cholecystectomy and appendectomy. RADIATION DOSAGE (If Supplied By Facility): CTDIvol = ( 12.26 ) mGy, DLP = ( 1070.93 ) mGycm TECHNIQUE: Transaxial images were obtained from the dome of the diaphragm to the symphysis pubis with oral contrast. 100 ML ISOVUE 370/ GASTROGRAFIN was administered. Sagittal and coronal images were reconstructed. Individualized dose optimization techniques were used for this CT. COMPARISON: CT of the abdomen and pelvis, 10/18/2019 and 08/22/2017. FINDINGS: The visualized lung bases are unremarkable. The visualized portions of the heart are within normal limits. Is a pacer lead in the right ventricle. The liver normal in size, contour and enhancement. There is a focal area of increased enhancement in the posterior right upper liver. Which measures 1.7 x 1.4 x 1.3 cm. This is vaguely seen CT of the abdomen and pelvis, dated 08/22/2017.. Question small hemangioma. There are surgical clips in the gallbladder fossa consistent with a prior cholecystectomy. Normal spleen. Normal pancreas. Normal bilateral adrenal glands. Normal right kidney. Normal left kidney. Bowel visualized ureters. There are surgical changes in the proximal stomach. There is no obvious mass. There is no obstruction. Normal small intestine. Normal colon. There is non-visualization of the appendix. Normal abdominal aorta. Normal inferior vena cava. Normal retroperitoneum. Normal urinary bladder. Vaginal cuff. There is small bilateral pelvic lymph nodes. The largest on the right measures 0.5 x 0.5 x 1.6 cm. The left node measures 1.9 x 0.6 x 1.3 cm. There is no free air or free fluid within the peritoneal cavity. Small bilateral subcentimeter nonspecific inguinal lymph nodes. The abdominal wall is otherwise unremarkable. Stable surgical changes at L4-5. CT/Abdomen/Pelvis WITH Contrast IMPRESSION: 1. Slight decrease in colonic feces when compared to previous study. 2. Focal area of enhancement in the upper right liver. Question hemangioma. 3. No other interval change. Electronically Signed: Mushtaq Marin DO at 16:54 EDT Tel [phone], Service support ,
--- NOTE | 2019-11-13 14:57 | ED.VIS.GEN ---
History of Present Illness Chief Complaint: Abd Pain Informant: Patient Onset: Days - Acute on chronic Current Severity: Moderate Maximum Severity: Moderate Narrative: Patient present secondary to persistent right upper quadrant pain. She was diagnosed with a neuroendocrine tumor of her stomach 2 years ago. She had a partial gastrectomy and cholecystectomy at that time. Over the past 1 year patient has developed recurrent right upper quadrant pain. She is currently awaiting a scan ordered by her oncologist. Patient presents today secondary to increased pain. She has chronic nausea and vomiting. She has been taking Tylenol at home for pain. - Past Medical History (1) ELOY (obstructive sleep apnea) Status: Chronic (2) COPD (chronic obstructive pulmonary disease) Status: Chronic (3) Primary malignant neuroendocrine tumor of stomach Status: Chronic (4) Anxiety and depression Status: Chronic (5) Presence of permanent cardiac pacemaker Status: Resolved Comment: 2003, Gen change 2013 (6) Essential (primary) hypertension Status: Chronic (7) Sick sinus syndrome Status: Chronic Past Medical History - Allergies and Home Meds Allergies/Adverse Reactions: Allergies latex Allergy (Intermediate, Verified 11/13/19 14:38) skin irritation aspirin Adverse Reaction (Severe, Verified 11/13/19 14:38) Nausea/Vom/Diarrhea erythromycin base [Erythromycin Base] Adverse Reaction (Severe, Verified 11/13/19 14:38) Vomiting,diarrhea NSAIDS (Non-Steroidal Anti-Inflamma Adverse Reaction (Severe, Verified 11/13/19 14:38) Vomiting,diarrhea Primary Care Physician: Charla Wadsworth MD [Primary Care Provider] - Prior records reviewed: Yes Surgical History: cholecystectomy, pacemaker implantation, - - Partial gastrectomy secondary to excision neuroendocrine tumor, appendectomy, cholecystectomy, hysterectomy, back surgery, elbow surgery, pacemaker. Smoking Status: Former smoker - Family History Paternal Family History: Family History (Last Reviewed 11/02/19 @ 15:02 by Jade Pat) Daughter Multiple sclerosis Father CAD (coronary artery disease) Heart disease Multiple sclerosis Grandfather Heart disease Uncle Heart disease Aunt No problems noted. Sister Colon cancer Mother Hypertension Family History: Reports: High Cholesterol, Heart Disease, Hypertension, - - Father with history of multiple sclerosis. Maternal Family History: Family History (Last Reviewed 11/02/19 @ 15:02 by Jade Pat) Daughter Multiple sclerosis Father CAD (coronary artery disease) Heart disease Multiple sclerosis Grandfather Heart disease Uncle Heart disease Aunt No problems noted. Sister Colon cancer Mother Hypertension Family History: Reports: Hypertension Review of Systems General: Denies: Chills, Fever Eyes: Denies: Visual changes - bilaterally ENT: Denies: Bilateral ear pain Cardiovascular: Denies: Chest pain Respiratory: Denies: Dyspnea, Cough Gastrointestinal: Reports: Abdominal pain, Nausea, Vomiting Musculoskeletal: Denies: Swelling, Extremity Pain Skin: Denies: Rash Neurological: Denies: Headache Hematologic: Denies: Easy bruising, Easy bleeding Allergy: Denies: Uticaria Physical Exam Vital Signs/Narrative: Vital Signs Temp Pulse Resp BP Pulse Ox 11/13/19 14:36 97.2 F L 66 14 151/108 H 98 Inital Vital Signs reviewed: Yes General: Well nourished, Well developed ENT: Moist mucous membranes Neck: Supple Cardiovascular: Regular rate, Regular rhythm Respiratory: No distress, CTA bilaterally Abdomen: Soft, Tender - Right upper quadrant tenderness to palpation.. Negative for: Rebound tenderness Extremities: Nontender Skin: Normal color Neurological: Alert, Oriented x3 Psychological: Normal affect Diagnostic/Tx/Re-eval Impressions Abdomen/Pelvis CT 11/13/19 14:52 IMPRESSION: 1. Slight decrease in colonic feces when compared to previous study. 2. Focal area of enhancement in the upper right liver. Question hemangioma. 3. No other interval change. Electronically Signed: Mushtaq Marin DO at 16:54 EDT Tel [phone], Service support , 11/13/19 14:52 Abdomen/Pelvis WITH Contrast [CT] Stat Laboratory Results 11/13/19 11/13/19 14:50 14:50 WBC 13.2 H RBC 4.86 Hgb 14.5 Hct 44.9 MCV 92.4 MCH 29.8 MCHC 32.3 RDW Std Deviation 46.0 H RDW Coeff of Ross 13.5 Plt Count 332 MPV 9.8 Immature Gran % (Auto) 0.500 Neut % (Auto) 65.8 Lymph % (Auto) 26.5 [place] % (Auto) 5.1 Eos % (Auto) 1.8 Baso % (Auto) 0.3 Absolute Neuts (auto) 8.7 H Absolute Lymphs (auto) 3.50 Nucleated RBC % 0 Sodium 146 H Potassium 4.0 Chloride 113 H Carbon Dioxide 25.0 Anion Gap 8 BUN 24 H Creatinine 0.89 Estim Creat Clear Calc 57.15 Est GFR (MDRD) Af Amer 85 Est GFR (MDRD) Non-Af 70 BUN/Creatinine Ratio 26.9 H Glucose 94 Calcium 9.4 Total Bilirubin 0.20 Direct Bilirubin 0.07 AST 17 ALT 22 Alkaline Phosphatase 118 H Total Protein 8.0 Albumin 3.6 Globulin 4.4 H Lipase 122 - Medical Decision Making Patient was given morphine and Zofran here for abdominal pain. CT scan shows a small lesion in her liver, probable hemangioma. I did advise the patient she needs to follow-up with her oncologist for the scheduled scan to ensure no other abnormalities are noted. I did do an oars report. Her last narcotic prescription was in June. She will be given a short course of Rombauer and Zofran. ED Disposition - Plan for ED Patient: Disposition: Home or Assisted Living Diagnosis: Abdominal pain Instructions: ED Abdominal Pain Unkn Cause Fem Prescriptions: Hydrocodone Bitart/Apap 5-325 [Rombauer 5MG-325MG] 1 tablet PO Q6H PRN PRN 3 Days #10 tablet PRN Reason: Pain Transmission Status: Received by [id number] Ondansetron [Zofran Odt] 4 mg PO Q8H PRN PRN #10 tab PRN Reason: Nausea Transmission Status: Pending to [id number] Referrals: Charla Wadsworth MD [Primary Care Provider] - Raegan Noel MD [STAFF PHYSICIAN] - As soon as possible
[2019-11-13] MEDS: 0.9% Normal Saline 1,000 ML 150 ML IV (15:00)
[2019-11-13] MEDS: Ondansetron 4 MG/2 ML Vial IV (15:02)
[2019-11-13] MEDS: Morphine 4 MG/ML Syringe IV ×2 (15:02→15:47)
[2019-11-13 15:14] LABS: Absolute Neutrophil Count 8.7 X10^3/uL (2.0-7.7); Basophil# 0.04 X10^3/uL; Basophil% 0.3 % (0-1); Eosinophil# 0.24 X10^3/uL; Eosinophils% 1.8 % (0-5); Hematocrit 44.9 % (37-47); Hemoglobin 14.5 g/dL (12.0-15.0); Lymphocyte % 26.5 % (19-41); Mean Corp Hgb Conc 32.3 g/dL (32-36); Mean Corpuscular Hgb 29.8 pg (27.0-32.0); Mean Corpuscular Volume 92.4 fL (81-99); Mean Platelet Vol. 9.8 fl (6.2-12.0); Monocyte# 0.67 X10^3/uL; Monocyte% 5.1 % (0-10); NRBC Flagged by Analyzer 0 % (0-5); Neutrophil # 8.71 X10^3/uL (2.7-7.7); Neutrophil % 65.8 % (47-70); Platelet Count 332 K/mm3 (150-450); RBC Distribution Width CV 13.5 % (11.6-14.6); Red Blood Count 4.86 M/mm3 (4.2-5.4); White Blood Count 13.2 K/mm3 (4.4-11.0)
[2019-11-13 15:15] VITALS: BP 166/96; RESP 18
[2019-11-13 15:16] VITALS: BP 166/96; PULSE 66; RESP 18; TEMP 36.2; O2SAT 98
[2019-11-13 15:28] LABS: AST(SGOT) 17 U/L (15-37); Alanine Aminotransfer ALT/SGPT 22 U/L (13-56); Albumin, Serum 3.6 g/dL (3.2-5.0); Alkaline Phosphatase 118 U/L (45-117); Anion Gap 8 (5-15); BUN 24 mg/dL (7-18); BUN/Creat Ratio 26.9 RATIO (10-20); Bilirubin, Direct 0.07 mg/dL (0.00-0.30); Calcium,Total 9.4 mg/dL (8.5-10.1); Chloride 113 mmol/L (98-107); Creatinine, Serum 0.89 mg/dL (0.55-1.02); EST Glomerular Filtration Rate 70 mL/min (>60); Est Glom Filt Rate - Afr Amer 85 mL/min (>60); Estimated Creatinine Clearance 57.15 ml/min; Globulin 4.4 g/dL (2.2-4.2); Glucose 94 mg/dL (74-106); Lipase 122 U/L (73-393); Sodium Level 146 mmol/L (136-145)
--- NOTE | 2019-11-13 15:59 | ED.RN ---
RN AT BEDSIDE TO ADMINISTER PAIN MEDICATION. PT'S RAC IV IS INFILTRATED, WITH NOTABLE SWELLING AND BRUISING WITH NORMAL SALINE INFUSING. RN DISCONTINUED IV AND APPLIED ICE PACK.RN STARTED ANOTHER IV IN THE LEFT WRIST. RN WILL CONTINUE TO MONITOR PATIENT.
[2019-11-13 16:03] VITALS: BP 173/101; PULSE 65; RESP 16; TEMP 36.5; O2SAT 98
[2019-11-13 18:21] VITALS: BP 166/92; PULSE 67; RESP 14; O2SAT 99
== END 2019-11-13 18:22 | disposition home or self-care (01) ==
PROVIDERS: Emergency Provider Emergency Medicine; PCP Internal Medicine
DX: R10.11 Right upper quadrant pain (principal); F41.9 Anxiety disorder, unspecified; I10 Essential (primary) hypertension; Z87.891 Personal history of nicotine dependence; Z95.0 Presence of cardiac pacemaker; Z79.899 Other long term (current) drug therapy
CPT/HCPCS: 74177; 80048; 80076; 83690; 85025; 96374; 96375; 96376; 99285; J7030; Q9967; A4216; J2405

== ENCOUNTER 2019-11-18 15:40 | Emergency (ER) | payer MEDICARE, MEDICAID, SELFPAY ==
[2019-11-18 15:42] VITALS: BP 95/68; PULSE 75; RESP 18; TEMP 36.3; O2SAT 97; BMI 33.8
[2019-11-18] MEDS: 0.9% Normal Saline 1,000 ML 1000 ML IV (16:35)
[2019-11-18] MEDS: Dicyclomine 20 MG/2 ML Vial IM (16:35)
--- NOTE | 2019-11-18 16:39 | ED.VISSUMM ---
- ER Visit Summary Date of Service: 11/18/19 Chief Complaint: [Abdominal pain] History of Present Illness: The patient is a 54 F [presents to the emergency department complaint of muscle cramps as well as right upper quadrant pain. Patient's had symptoms of diaphoresis intermittently as well as nausea, vomiting, and diarrhea. Patient has history 2 years ago of a neuroendocrine tumor that was resected and she feels that her symptoms are similar to what she had then. Patient sees an oncologist who ordered a scan which is scheduled to evaluate for recurrence. Patient took some Zofran and her nausea seems to be improved. Patient had some severe right upper quadrant pain earlier today but now seems to be improved. Patient states that she was in the emergency department just 5 days ago and had a CT scan of her abdomen pelvis as well as lab work. Patient has history of low potassium. Patient has history of COPD and hypertension. Patient has history of appendectomy, cholecystectomy, hysterectomy, and pacemaker placement.] Physical Examination: [HEENT-PERRLA, EOMI. Cranial nerves II through XII grossly intact. TMs clear. Mucous membranes moist. No adenopathy. Cardiovascular-regular rate and rhythm without murmur or ectopy Lungs-clear to auscultation, chest wall stable without crepitus or subcu emphysema Abdomen-normoactive bowel sounds, soft. Patient has some mild right upper quadrant tenderness on palpation. There is no rebound, rigidity, or peritoneal signs. No mass palpated. Extremities-intact ?4, normal range of motion, normal pulses, atraumatic] Test Results: [CBC with differential showed a slightly elevated white count 12.3, hemoglobin 14.7, hematocrit 46, placed to 89. Chemistries unremarkable other than slightly depressed potassium of 3.2. LFTs were normal. Urinalysis was normal.] Emergency Department Course and Treatment: [IV line was established and patient was given Bentyl 20 mg IM. Patient was given 40 mEq of potassium chloride p.o. Patient had normal saline started on arrival at 125 cc an hour.] Treatment Plan: [Patient advised to follow-up with her primary care physician and oncologist. She is to continue with her current medication regimen. Patient does not have an acute abdomen and she is feeling improved. Patient had a CT scan of the abdomen pelvis just 5 days ago I do not feel we need to repeat any further imaging.] Disposition: [Discharged home in stable condition.] Impression: [Abdominal pain-etiology uncertain] This note was generated with [employer] dictation software. It may contain incorrect words, spelling, and punctuation that were not noted in review of the chart prior to signing ED Disposition - Plan for ED Patient: Referrals: Charla Wadsworth MD [Primary Care Provider] -
[2019-11-18 16:50] LABS: Absolute Lymphocyte Count 3.16 X10^3/uL (0.83-4.51); Absolute Neutrophil Count 8.2 X10^3/uL (2.0-7.7); Basophil# 0.03 X10^3/uL; Basophil% 0.2 % (0-1); Eosinophil# 0.19 X10^3/uL; Eosinophils% 1.5 % (0-5); Hematocrit 45.9 % (37-47); Hemoglobin 14.7 g/dL (12.0-15.0); Lymphocyte # 3.16 X10^3/ul (4.0); Lymphocyte % 25.8 % (19-41); Mean Corpuscular Hgb 29.1 pg (27.0-32.0); Mean Corpuscular Volume 90.7 fL (81-99); Mean Platelet Vol. 9.5 fl (6.2-12.0); Monocyte# 0.68 X10^3/uL; Monocyte% 5.5 % (0-10); NRBC Flagged by Analyzer 0 % (0-5); Neutrophil # 8.17 X10^3/uL (2.7-7.7); Neutrophil % 66.7 % (47-70); Platelet Count 289 K/mm3 (150-450); RBC Distribution Width CV 13.6 % (11.6-14.6); RBC Distribution Width SD 45.5 fl (35.1-43.9); Red Blood Count 5.06 M/mm3 (4.2-5.4); White Blood Count 12.3 K/mm3 (4.4-11.0)
[2019-11-18 17:17] LABS: AST(SGOT) 13 U/L (15-37); Alanine Aminotransfer ALT/SGPT 21 U/L (13-56); Albumin, Serum 4.2 g/dL (3.2-5.0); Alkaline Phosphatase 118 U/L (45-117); Anion Gap 5 (5-15); BUN 16 mg/dL (7-18); Calcium,Total 9.6 mg/dL (8.5-10.1); Chloride 111 mmol/L (98-107); Creatinine, Serum 0.89 mg/dL (0.55-1.02); EST Glomerular Filtration Rate 70 mL/min (>60); Est Glom Filt Rate - Afr Amer 85 mL/min (>60); Estimated Creatinine Clearance 57.15 ml/min; Globulin 4.3 g/dL (2.2-4.2); Glucose 95 mg/dL (74-106); Lipase 96 U/L (73-393); Potassium 3.2 mmol/L (3.5-5.1); Protein, Total 8.5 g/dL (6.4-8.2); Sodium Level 142 mmol/L (136-145)
[2019-11-18 17:31] LABS: Bacteria 0 SEEN /hpf (None Seen); Mucous, Urine 0 SEEN /hpf (<or=2+); Red Blood Cells-Urine 0 SEEN /hpf (0-5); White Blood Cells 0 SEEN /hpf (0-5)
[2019-11-18 17:42] VITALS: PULSE 64; RESP 16; O2SAT 96
[2019-11-18 18:01] LABS: Color, Urine Yellow (Yellow); Glucose, Dipstick Normal (Normal); Ketone-Dipstick 5 mg/dl (Negative); Leukocyte Esterase-Dipstick Negative /ul (Negative); Nitrite-Dipstick Negative (Negative); Occult Blood-Urine 10 /ul (Negative); Protein-Dipstick Negative (Negative); Urine Bilirubin Dipstick Negative (Negative); Urine Clarity Clear (Clear); Urine Urobilinogen Normal (Normal)
[2019-11-18 18:14] LABS: Squamous Epithelial Cells - UA 0-5 SEEN /hpf (5-10)
--- NOTE | 2019-11-18 18:16 | ED.DEP ---
ED Disposition - Plan for ED Patient: Instructions: ED Abdominal Pain Unkn Cause Fem Referrals: Charla Wadsworth MD [Primary Care Provider] - 3-5 Days
[2019-11-18 18:21] VITALS: BP 108/67; PULSE 84; RESP 16; O2SAT 97
== END 2019-11-18 18:22 | disposition home or self-care (01) ==
LOC: ED 16:47
PROVIDERS: Emergency Provider Emergency Medicine; PCP Internal Medicine
DX: R10.11 Right upper quadrant pain (principal); E87.6 Hypokalemia; R25.2 Cramp and spasm; R11.2 Nausea with vomiting, unspecified; R19.7 Diarrhea, unspecified; I10 Essential (primary) hypertension; J44.9 Chronic obstructive pulmonary disease, unspecified; G47.33 Obstructive sleep apnea (adult) (pediatric); F32.9 Major depressive disorder, single episode, unspecified; F41.9 Anxiety disorder, unspecified; Z95.0 Presence of cardiac pacemaker; Z90.49 Acquired absence of other specified parts of digestive tract
CPT/HCPCS: 80053; 81001; 83690; 85025; 96360; 96372; 99283; J7030

== ENCOUNTER 2019-11-24 16:03 | Outpatient (RCR) | payer MEDICARE, MEDICAID, SELFPAY ==
[2019-11-02 15:03] VITALS: BMI 32.1
[2019-11-24 17:09] LABS: Anion Gap 6 (5-15); BUN 14 mg/dL (7-18); BUN/Creat Ratio 16.1 RATIO (10-20); Calcium,Total 9.3 mg/dL (8.5-10.1); Chloride 110 mmol/L (98-107); Creatinine, Serum 0.87 mg/dL (0.55-1.02); EST Glomerular Filtration Rate 72 mL/min (>60); Est Glom Filt Rate - Afr Amer 87 mL/min (>60); Glucose 71 mg/dL (74-106); Potassium 3.6 mmol/L (3.5-5.1); Sodium Level 145 mmol/L (136-145)
== END 2019-12-09 23:59 ==
LOC: HHLAB 16:03
PROVIDERS: PCP Internal Medicine
DX: E87.6 Hypokalemia (principal); G89.4 Chronic pain syndrome
CPT/HCPCS: 80048

== ENCOUNTER → 2019-12-01 10:22 | Outpatient (CLI) | payer MEDICARE, MEDICAID, SELFPAY ==
[2019-12-01 10:02] VITALS: BMI 33.8
[2019-12-01 12:22] LABS: Anion Gap 2 (5-15); BUN 15 mg/dL (7-18); BUN/Creat Ratio 14.9 RATIO (10-20); Chloride 110 mmol/L (98-107); Creatinine, Serum 1.01 mg/dL (0.55-1.02); EST Glomerular Filtration Rate 61 mL/min (>60); Est Glom Filt Rate - Afr Amer 73 mL/min (>60); Glucose 104 mg/dL (74-106); Potassium 4.5 mmol/L (3.5-5.1); Sodium Level 142 mmol/L (136-145); T4 Free Direct 1.03 ng/dL (0.76-1.46); Thyroid Stim Hormone (TSH) 1.04 uIU/mL (0.358-3.74)
== END ==
PROVIDERS: PCP Internal Medicine; Referring Provider Nurse Practitioner Family; Visit Provider Nurse Practitioner Family
DX: E87.6 Hypokalemia (principal); E03.9 Hypothyroidism, unspecified; R19.7 Diarrhea, unspecified
CPT/HCPCS: 36415; 80048; 84439; 84443

== ENCOUNTER → 2019-12-03 11:57 | Outpatient (CLI) | payer MEDICARE, MEDICAID, SELFPAY ==
[2019-12-03 11:06] VITALS: BMI 31.1
--- NOTE | 2019-12-03 12:00 | RAD_ITS ---
HISTORY: CHEST PAIN, SHORT OF BREATH, PT HAVING A CATH ADDITIONAL HISTORY: None provided. COMPARISON: 10/19/2019 EXAMINATION/TECHNIQUE: XR Chest 2 Views Number of images including paperwork: 2 FINDINGS: LUNGS AND PLEURA: No consolidation, mass or pleural effusion. CARDIAC SILHOUETTE: Unremarkable. MEDIASTINUM AND ROMINA: Unremarkable. UPPER ABDOMEN: Unremarkable. SKELETON AND SOFT TISSUES: No acute findings. Degenerative changes. OTHER DEVICES AND HARDWARE: Pacemaker with left-sided generator. RAD/Chest PA and Lateral IMPRESSION: No acute cardiopulmonary abnormality. at 0329 Reported and signed by: Fanny Ramirez MD Electronically Signed: Fanny Ramirez MD at 3:29 EDT Tel , Service support ,
[2019-12-03 12:45] LABS: Absolute Lymphocyte Count 4.12 X10^3/uL (0.83-4.51); Basophil# 0.06 X10^3/uL; Basophil% 0.3 % (0-1); Eosinophil# 0.27 X10^3/uL; Eosinophils% 1.6 % (0-5); Hematocrit 49.5 % (37-47); Hemoglobin 15.5 g/dL (12.0-15.0); Lymphocyte # 4.12 X10^3/ul (4.0); Lymphocyte % 23.7 % (19-41); Mean Corp Hgb Conc 31.3 g/dL (32-36); Mean Corpuscular Hgb 28.5 pg (27.0-32.0); Mean Corpuscular Volume 91.2 fL (81-99); Mean Platelet Vol. 9.4 fl (6.2-12.0); Monocyte# 0.87 X10^3/uL; NRBC Flagged by Analyzer 0 % (0-5); Neutrophil # 11.96 X10^3/uL (2.7-7.7); Platelet Count 314 K/mm3 (150-450); RBC Distribution Width CV 13.5 % (11.6-14.6); RBC Distribution Width SD 46.1 fl (35.1-43.9); Red Blood Count 5.43 M/mm3 (4.2-5.4); White Blood Count 17.4 K/mm3 (4.4-11.0)
[2019-12-03 13:15] LABS: Anion Gap 6 (5-15); BUN 20 mg/dL (7-18); BUN/Creat Ratio 17.5 RATIO (10-20); Calcium,Total 9.6 mg/dL (8.5-10.1); Chloride 108 mmol/L (98-107); Creatinine, Serum 1.14 mg/dL (0.55-1.02); EST Glomerular Filtration Rate 53 mL/min (>60); Est Glom Filt Rate - Afr Amer 64 mL/min (>60); Glucose 101 mg/dL (74-106); Sodium Level 142 mmol/L (136-145)
== END ==
PROVIDERS: PCP Internal Medicine; Referring Provider Internal Medicine Cardiovascular Disease; Visit Provider Internal Medicine Cardiovascular Disease
DX: R07.9 Chest pain, unspecified (principal); R00.2 Palpitations
CPT/HCPCS: 36415; 71046; 80048; 85025

== ENCOUNTER 2019-12-03 12:30 | Emergency (ER) | payer MEDICARE, MEDICAID, SELFPAY ==
[2019-12-03 11:06] VITALS: BMI 31.1
[2019-12-03 12:31] VITALS: BP 132/62; PULSE 58; RESP 15; TEMP 36.7; O2SAT 100; BMI 31.1
--- NOTE | 2019-12-03 13:09 | ED.DCSUM_ITS ---
- ER Visit Summary Date of Service: 12/03/19 Chief Complaint: Abdominal pain History of Present Illness: The patient is a 54 F who presents with abdominal pain that has been chronic for several months. Patient states she was here at the hospital seeing Dr. Keys for sick sinus syndrome. Patient states her primary care physician called her and told her to go to the emergency department for further evaluation and treatment of her abdominal pain. Patient states her pain is stabbing. Patient states the pain is over the right mid abdomen. Patient states the pain is worse with eating. Patient admits to nausea and vomiting. Patient denies any diarrhea. Patient denies any hematemesis or coffee-ground emesis. Patient denies any melena or hematochezia. Physical Examination: Vital signs are stable. Patient is afebrile. Patient is in no acute distress. Oral mucosa is pink and moist. Neck is supple. Trachea is midline. There is no JVD. Heart was regular rate and rhythm. Lungs are clear and equal bilaterally. Abdomen is soft. Bowel sounds are normal. There is right mid abdominal tenderness. There is no rebound or guarding noted. Cranial nerves II through XII are intact. There are no focal motor or sensory deficits noted. Extremities are intact. There is no calf tenderness or edema. Test Results: CBC shows a mild leukocytosis of 15.1. Comprehensive metabolic profile was within normal limits. Urinalysis does not show any evidence of urinary tract infection. CT scan from 11/13/2019 was reviewed. There was no acute intra-abdominal process noted at that time. Emergency Department Course and Treatment: Patient was given a dose of Zofran. Patient was also ordered a dose of Bentyl. Patient refused this. Patient requested something else for pain. There is a care plan pending for the patient to not receive narcotic pain medication. Therefore I was unable to offer any further pain medication. Patient was instructed to follow-up with her primary care physician in 3 to 5 days for further management of her chronic abdominal pain. Patient understood and was agreeable with the plan. All questions were answered. Disposition: Discharge home Impression: 1. Abdominal pain This note was generated with [employer] dictation software. It may contain incorrect words, spelling, and punctuation that were not noted in review of the chart prio r to signing ED Disposition - Plan for ED Patient: Disposition: Home or Assisted Living Diagnosis: Chronic abdominal pain Instructions: ED Abdominal Pain Unkn Cause Fem, ED Chronic Pain Referrals: Charla Wadsworth MD [Primary Care Provider] - 3-5 Days
[2019-12-03] MEDS: Ondansetron 4 MG/2 ML Vial IV (13:21)
[2019-12-03 13:31] LABS: Absolute Lymphocyte Count 3.73 X10^3/uL (0.83-4.51); Absolute Neutrophil Count 10.3 X10^3/uL (2.0-7.7); Basophil# 0.05 X10^3/uL; Basophil% 0.3 % (0-1); Eosinophil# 0.22 X10^3/uL; Eosinophils% 1.5 % (0-5); Hematocrit 46.5 % (37-47); Lymphocyte # 3.73 X10^3/ul (4.0); Lymphocyte % 24.7 % (19-41); Mean Corp Hgb Conc 32.3 g/dL (32-36); Mean Corpuscular Hgb 29.2 pg (27.0-32.0); Mean Corpuscular Volume 90.5 fL (81-99); Mean Platelet Vol. 9.3 fl (6.2-12.0); Monocyte# 0.71 X10^3/uL; Monocyte% 4.7 % (0-10); NRBC Flagged by Analyzer 0 % (0-5); Neutrophil # 10.32 X10^3/uL (2.7-7.7); Neutrophil % 68.3 % (47-70); Platelet Count 279 K/mm3 (150-450); RBC Distribution Width CV 13.4 % (11.6-14.6); RBC Distribution Width SD 44.7 fl (35.1-43.9); Red Blood Count 5.14 M/mm3 (4.2-5.4); White Blood Count 15.1 K/mm3 (4.4-11.0)
[2019-12-03 13:45] LABS: ALB/GLOB Ratio 0.8 RATIO (0.9-2.4); AST(SGOT) 9 U/L (15-37); Alanine Aminotransfer ALT/SGPT 18 U/L (13-56); Albumin, Serum 3.8 g/dL (3.2-5.0); Alkaline Phosphatase 118 U/L (45-117); Anion Gap 7 (5-15); BUN 20 mg/dL (7-18); BUN/Creat Ratio 20.4 RATIO (10-20); Calcium,Total 9.6 mg/dL (8.5-10.1); Chloride 110 mmol/L (98-107); Creatinine, Serum 0.98 mg/dL (0.55-1.02); EST Glomerular Filtration Rate 63 mL/min (>60); Est Glom Filt Rate - Afr Amer 76 mL/min (>60); Globulin 4.5 g/dL (2.2-4.2); Glucose 96 mg/dL (74-106); Lipase 195 U/L (73-393); Potassium 4.2 mmol/L (3.5-5.1); Protein, Total 8.3 g/dL (6.4-8.2); Sodium Level 143 mmol/L (136-145)
[2019-12-03 14:00] LABS: Mucous, Urine 0 SEEN /hpf (<or=2+); Red Blood Cells-Urine 0 SEEN /hpf (0-5)
[2019-12-03 14:02] LABS: Color, Urine Yellow (Yellow); Glucose, Dipstick Normal (Normal); Ketone-Dipstick 5 mg/dl (Negative); Leukocyte Esterase-Dipstick 100 /ul (Negative); Nitrite-Dipstick Negative (Negative); Occult Blood-Urine Negative /ul (Negative); Protein-Dipstick 15 mg/dl (Negative); Urine Clarity Clear (Clear); Urine Urobilinogen Normal (Normal)
[2019-12-03 14:05] LABS: Urine Bilirubin Dipstick 1 mg/dL (Negative)
[2019-12-03 14:16] LABS: Bacteria 1+ /hpf (None Seen); Squamous Epithelial Cells - UA 0-5 SEEN /hpf (5-10); White Blood Cells 0-5 SEEN /hpf (0-5)
[2019-12-03 14:56] VITALS: BP 124/77; PULSE 62; RESP 15; O2SAT 98
== END 2019-12-03 14:57 | disposition home or self-care (01) ==
PROVIDERS: Emergency Provider Emergency Medicine; PCP Internal Medicine
DX: R10.9 Unspecified abdominal pain (principal); G89.29 Other chronic pain; R07.9 Chest pain, unspecified; R00.2 Palpitations; R11.2 Nausea with vomiting, unspecified; I49.5 Sick sinus syndrome; M54.9 Dorsalgia, unspecified; E66.9 Obesity, unspecified; Z79.899 Other long term (current) drug therapy; Z95.0 Presence of cardiac pacemaker
CPT/HCPCS: 36415; 71046; 80048; 80053; 81001; 83690; 85025; 96372; 96374; 99283; A4216; J2405

== ENCOUNTER → 2019-12-07 08:02 | Outpatient (CLI) | payer MEDICARE, MEDICAID, SELFPAY ==
[2019-11-02 15:03] VITALS: BMI 32.1
[2019-12-03 12:31] VITALS: BMI 31.1
--- NOTE | 2019-12-07 08:10 | NM_ITS ---
CLINICAL: 54-year-old female with history of neuroendocrine neoplasm with current complaint of significant abdominal pain. OCTREOTIDE-SOMATOSTATIN RECEPTOR SPECT-CT SCINTIGRAPHY COMPARISON: CT of the abdomen-pelvis report 11/13/2019 FINDINGS: Following the intravenous administration of 7.0 mCi of In 111 Octreotide, whole body projections obtained at 24 and 48 hours post injection, spot planar projections of the chest, abdomen and pelvis at 4 hours following tracer provision, and SPECT-CT reconstructions of the abdomen and pelvis obtained at 24 and 48 hours post radiopharmaceutical administration reveal: 1. There is no evidence of abnormal increased radiopharmaceutical concentration on review of spot projections, whole body acquisitions and SPECT-CT reconstructions of the timeframes articulated above. 2. Physiologic tracer uptake is defined in the hepatic and splenic parenchyma, right and left kidneys, intestinal tract and urinary bladder. NM/Tumor Localization SPECT IMPRESSION: 1. NEGATIVE In-111 OCTREOTIDE SOMATOSTATIN RECEPTOR PLANAR, WHOLE BODY, SPECT-CT SCINTIGRAPHY 2. There is no definitive scintigraphic evidence of somatostatin receptor avid viable neoplasm on the current examination. Electronically Signed: Sergio Ortiz DO at 22:57 EDT Tel , Service support ,
== END ==
PROVIDERS: PCP Internal Medicine; Referring Provider Internal Medicine Hematology & Oncology; Visit Provider Internal Medicine Hematology & Oncology
DX: D3A.8 Other benign neuroendocrine tumors (principal)
CPT/HCPCS: 78800; 78801; 78803; A9572

== ENCOUNTER 2019-12-11 06:22 | Day surgery (SDC) | payer MEDICARE, MEDICAID, SELFPAY ==
[2019-12-10 06:55] VITALS: BMI 31.1
--- NOTE | 2019-12-11 05:00 | HP_ITS ---
HPI HPI History of Present Illness Details: This is a 54-year-old lady with a history of permanent pacemaker implantation for syncope that was revised in 2013. She also had a neuroendocrine tumor for which she underwent gastric resection and a cholecystectomy in May 2017. She in addition has a history of hypertension and tobacco use. She underwent tilt table testing evaluation in July 2018 which was negative. Her echocardiogram in 2015 had demonstrated an ejection fraction of 65% and a dobutamine stress echo was negative in January 2018. She has been having intermittent chest pains as well as palpitations. She describes these as across her chest. She also had evidence of monomorphic wide complex tachycardia noted on her last pacemaker check. She has had periods where her electrolytes has been abnormal. She did have a normal dobutamine stress echo in May of this year, but she has continued to have some of his chest discomfort. Her physical exam demonstrates clear lung hairston regular rate and rhythm and no pedal edema. Intake Vital Signs 12/03/19 Height 5 ft 2 in 12/03/19 Weight: 170 lb 12/03/19 BMI 31.1 12/03/19 BP 125/82 H 12/03/19 Respiration 16 12/03/19 Pulse 56 L 12/03/19 Pulse Oximetry (%) 98 Intake Visit Reasons: 6 M FU Allergies latex Allergy (Intermediate, Verified 12/03/19 11:06) skin irritation aspirin Adverse Reaction (Severe, Verified 12/03/19 11:06) Nausea/Vom/Diarrhea erythromycin base [Erythromycin Base] Adverse Reaction (Severe, Verified 12/03/19 11:06) Vomiting,diarrhea NSAIDS (Non-Steroidal Anti-Inflamma Adverse Reaction (Severe, Verified 12/03/19 11:06) Vomiting,diarrhea Medications Duloxetine Hcl [Cymbalta] 120 mg PO DAILY 03/28/15 [History Confirmed 12/03/19] buspirone 5 mg tablet 5 mg PO TID #90 tab 02/03/19 [Rx Confirmed 12/03/19] Lorazepam 1 mg PO TID PRN PRN 06/30/19 [History Confirmed 12/03/19] Zolpidem Tartrate [Ambien] 10 mg PO QHS 06/30/19 [History Confirmed 12/03/19] lisinopril 40 mg tablet 40 mg PO DAILY #90 tab 10/02/19 [Rx Confirmed 12/03/19] methocarbamol 750 mg tablet 750 mg PO BID PRN #180 tab 10/02/19 [Rx Confirmed 12/03/19] cholestyramine (with sugar) 4 gram powder for susp in a packet 4 g PO BID #60 ea 11/10/19 [Rx Confirmed 12/03/19] metoprolol tartrate 100 mg tablet 100 mg PO BID #60 tab 11/10/19 [Rx Confirmed 12/03/19] potassium chloride 20 mEq tablet,extended release(part/cryst) 40 meq PO DAILY #90 tab 11/20/19 [Rx Confirmed 12/03/19] omeprazole 40 mg capsule,delayed release 80 mg PO DAILY #90 cap 11/30/19 [Rx Confirmed 12/03/19] amlodipine 10 mg tablet 10 mg PO DAILY #90 tab 12/01/19 [Rx Confirmed 12/03/19] levothyroxine 25 mcg tablet 25 mcg PO DAILY #90 tab 12/01/19 [Rx Confirmed 12/03/19] ondansetron 4 mg disintegrating tablet 4 mg PO Q8H PRN PRN #60 tab 12/01/19 [Rx Confirmed 12/03/19] promethazine 25 mg tablet 25 mg PO Q6H PRN PRN #10 tab 12/01/19 [Rx Confirmed 12/03/19] Ejection fraction %: 65 to 70 PFSH Medical History Intermittent palpitations (Chronic) Sick sinus syndrome (Chronic) Monomorphic ventricular tachycardia (Chronic) Essential (primary) hypertension (Chronic) Hyperlipidemia (Chronic) Intractable vomiting (Chronic) Diarrhea (Chronic) Hypokalemia (Chronic) Primary malignant neuroendocrine tumor of stomach (Chronic) Polycythemia (Chronic) ELOY (obstructive sleep apnea) (Chronic) COPD (chronic obstructive pulmonary disease) (Chronic) Abdominal pain (Chronic) Anemia (Chronic) Anxiety and depression (Chronic) Anxiety and depression (Chronic) Anxiety and depression (Chronic) Bone fracture (Chronic) Chronic lower back pain (Chronic) Chronic pain syndrome (Chronic) Familial combined hyperlipidemia (Chronic) GERD (gastroesophageal reflux disease) (Chronic) GERD (gastroesophageal reflux disease) (Chronic) Gabapentin overdose (Chronic) Heart murmur (Chronic) History of anxiety disorder (Chronic) History of pneumonia (Chronic) Hypoglycemia (Chronic) Hypothyroidism (Chronic) Hypothyroidism (Chronic) Neuroendocrine neoplasm of stomach (Chronic) Neuropathy (Chronic) Neuropathy (Chronic) ELOY (obstructive sleep apnea) (Chronic) Obesity (Chronic) Obstructive sleep apnea (Chronic) PTSD (post-traumatic stress disorder) (Chronic) PTSD (post-traumatic stress disorder) (Chronic) Sinus pause (Chronic) Tobacco dependence syndrome (Chronic) Vitamin D deficiency (Chronic) Low back strain (Resolved) Sacral contusion (Resolved) Surgical History Presence of permanent cardiac pacemaker (Resolved 2013) History of appendectomy (Resolved) History of back surgery (Resolved) History of colonoscopy (Resolved) History of elbow surgery (Resolved) History of hysterectomy (Resolved) History of laparotomy (Resolved) History of resection of stomach (Resolved) Hx of cholecystectomy (Resolved) history excision neuroendocrine tumor (Resolved) Family History Daughter Multiple sclerosis Father CAD (coronary artery disease) Heart disease Multiple sclerosis Grandfather Heart disease Uncle Heart disease Aunt No problems noted. Sister Colon cancer Mother Hypertension Social History (Updated 12/03/19 @ 11:[address] Samuel Keys MD) Smoking Status: Former smoker quit date: 03/11/15 Tobacco: How many years used: 30 alcohol intake: never substance use type: does not use what type of physical activity do you participate in: none ROS Const Const: Positive for fatigue and weakness; negative for headache(s), frequent falls, difficulty sleeping or excessive sweating Eyes Eyes: Negative for loss of peripheral vision, transient loss of vision, blurry vision, double vision or tunnel vision ENT ENT: Negative for headache(s), dizziness, Nosebleed/epistaxis or balance problems Cardio Chest Pain: No Palpitations: Yes (chest hurts at the end of the day with all the palpitations becomes dizzy) feels like its: skipping, pounding Edema: None Muscle aches with walking: None Resp Respiratory: Negative for SOB with activity, SOB at rest, SOB orthopnea\SOB lying down, Cough or paroxysmal nocturnal dyspnea GI GI: Positive for nausea, vomiting, cramping and loose stools; negative heartburn or black,tarry stools : Negative for hematuria Musc Musc: Negative for muscle aches/ myalgia, muscle weakness, joint pain or balance problems Skin Skin: Negative non-healing lesions, rash or unusual bruising Neuro Neuro: Positive for weakness; negative for dizziness, lightheadedness, near syncope, syncope, orthostatic symptoms, frequent falls, headache(s), blurry vision, double vision or lack of coordination Delta Hematologic/Lymphatic: Negative for easy bleeding or easy bruising Endo Endo: Positive for fatigue; negative for excessive sweating or increased thirst/drinking Psych Psych: Negative for anxiety or depression Allergy Allergy/Immunology: Negative for hives, Negative for rash Cardiology Exam Const Appearance: cooperative, healthy appearing, no acute distress, well developed and well groomed Nutritional Appearance: average body habitus and well nourished Orientation: alert, awake and oriented x3 Head Head: normal to inspection, normocephalic and atraumatic Ears: hearing grossly normal bilaterally and external ears normal Nose: external nose normal, nares normal, nasal mucous membranes and turbinates normal, septum normal, no nasal discharge Face and Sinus: face symmetric Mouth: oral mucosae normal, tongue normal, oropharynx normal and moist mucous membranes Teeth and gingiva: dentition normal Throat: posterior oropharynx normal, tonsils normal and uvula midline Eyes General: appearance normal, both eyes and all related structures Eyelids: eyelids normal Conjunctivae: conjunctivae normal Pupils: PERRL, normal by confrontation and accommodation normal EOM: EOM intact bilaterally Neck Neck: normal visual inspection, trachea midline and no JVD JVD: +5 Carotids: normal carotid upstroke and bounding pulses Chest Chest inspection: normal inspection of the chest, symmetric chest movement and normal respiratory effort Auscultation: Bilateral: Clear to Auscultation Cardio Palpation: normal PMI Rate: regular rate Rhythm: regular rhythm Heart sounds: S1 normal, S2 normal and normal, physiologic split S2; negative rub, gallop or murmur GI GI: normal to inspection, soft, no hepatosplenomegaly and bowel sounds present Neuro General: alert, awake, oriented x3, gait normal, moves all extremities and no focal sensory deficit Skin Skin: no rashes or lesions noted Extremities Pulses: Normal: Right Femoral Pulse, Left Femoral Pulse, Right Dorsalis Pedis Pulse, Left Dorsalis Pedis Pulse, Right Posterior Tibial Pulse, Left Posterior Tibial Pulse, Right Radial Pulse, Left Radial Pulse Lower Extremity Edema: None: Bilateral Musculoskel Musculoskeletal: No joint tenderness Psych Psychological: normal affect Assessment & Plan 1. Chest pain R07.9 Plan She continues to have chest discomfort etiology of which is not entirely clear. Due to her previous history of the neuroendocrine tumor I would suggest that despite her normal dobutamine stress echo we pursue a cardiac catheterization to definitively exclude coronary artery disease. Depending on the findings further recommendations will then be made. Orders Orders: Basic Metabolic Profile (BMP) Today Chest PA and Lateral Today 2. Presence of permanent cardiac pacemaker Z95.0 2003, Gen change 2013 Plan She is status post permanent pacemaker implantation. Her permanent pacemaker was interrogated today she did have 1 nonsustained ventricular tachyarrhythmia episode in October of this year on the but otherwise has had no other symptomatology. We will continue to monitor the above. She tells is that she is going to be moving [place] towards [place] and we would find another physician for her. She would remain on the beta-aislinn. 3. Monomorphic ventricular tachycardia I47.2 Plan She has had previous episodes of monomorphic ventricular tachyarrhythmia but the above appear to be rather quiescent at this time. Orders Orders: Left Heart Cath/COR/LV Percut Today 4. Essential (primary) hypertension I10 Plan Her blood pressure appears to be under good control based on her recent blood pressure recordings. Her last echocardiogram also demonstrated low normal ejection fraction of 50% increasing to 70% with exertion. 5. Hyperlipidemia E78.5 Plan She does have a history of hyperlipidemia. Her most recent lipid profile demonstrating a total cholesterol of 247 LDL of 148 HDL of 37. I would not suggest we make any changes with regard to the above. Plan Detail Other Orders Orders: CBC W/Diff, Automated Today R00.2 Follow Up prn Coding Level of Care Code Off vis,est,level 4 Diagnoses Chest pain R07.9 Presence of permanent cardiac pacemaker Z95.0 Monomorphic ventricular tachycardia I47.2 Essential (primary) hypertension I10 Hyperlipidemia E78.5 Coding Level of Care Code Off vis,est,level 4 Diagnoses Chest pain R07.9 Presence of permanent cardiac pacemaker Z95.0 Monomorphic ventricular tachycardia I47.2 Essential (primary) hypertension I10 Hyperlipidemia E78.5 Supplemental Info Supplemental Information Diagnostics Electrocardiogram 10/30/19
--- NOTE | 2019-12-11 07:20 | EKG12_ITS ---
Test Reason : PRECATH Blood Pressure : / mmHG Vent. Rate : 060 BPM Atrial Rate : 060 BPM P-R Int : 224 ms QRS Dur : 078 ms QT Int : 434 ms P-R-T Axes : 066 055 061 degrees QTc Int : 434 ms Atrial-paced rhythm with prolonged AV conduction Abnormal ECG Confirmed by LEELEE WOLFE MD ([id number]), supervising editor news reel OTIS RUIZ ([id number]) on 12/16/2019 10:40:51 AM Also confirmed by LEELEE WOLFE MD ([id number]), supervising editor news reel KIM [email or web address] [id number]) on 12/18/2019 8:06:26 AM Referred By: Samuel Keys Confirmed By:LEELEE WOLFE MD
--- NOTE | 2019-12-11 08:40 | CL.D_ITS ---
Patient Name: RAMSES BRADSHAW Study Date: 12/11/2019 Performing: Samuel Keys MD Ht: 61.81 inches 157 cm : 1965 Wt: 169.76 lbs 77 kg Age: 54 Gender: female BSA: 1.78 PROCEDURE(S) PERFORMED KE91-UEH/COR/LV CLINICAL PROFILE AND INDICATIONS Indications: Suspected CAD Heart Failure: None Stress/Imaging Stress/Image Study Performed: No CAD Presentations: Symptom unlikely to be ischemic. CONCLUSIONS Essentially single-vessel CAD with a totally occluded right and left to right collaterals noted and p reserved left ventricular ejection fraction. RECOMMENDATIONS Medical therapy DESCRIPTION OF PROCEDURE The patient arrived to the procedure lab. The risks and benefits of the procedure as well as a full d escription of our services here and current unavailability of surgical backup were fully explained to the patient and/or their significant other prior to the catheterization. The Timeout was completed, verifying the correct patient and procedure. The patient's procedural site was prepped and draped in the usual fashion. Local anesthetic was given subcutaneously to right radial region with Lidocaine 2% . Using a modified Seldinger technique, arterial access was obtained via the right radial artery, a 6 Fr sheath was inserted. Left Coronary Artery selective angiography was performed in multiple views u sing a 5 Fr. 4.0 Nash catheter. Right Coronary Artery selective angiography was then performed in mu ltiple views using a 5 Fr. 4.0 Nash catheter. Left Ventriculography was performed in TARIQ projection using a 5 Fr. Pigtail catheter. LV to AO pullback pressures were then recorded.The arterial sheath was pulled and a TR Band was applied for hemostasis CORONARY ANGIOGRAPHY DOMINANCE: Right Dominant LEFT HEART ASSESSMENT Left Ventricular Ejection Fraction: by LV Gram 60 % Normal LV wall motion Normal Left Ventricular systolic function LEFT MAIN: Mild calcification LEFT ANTERIOR DESCENDING ARTERY: Mild luminal irregularities less than 30%, No significant disease no marcell CIRCUMFLEX ARTERY: Mild luminal irregularities RIGHT CORONARY ARTERY: PROX RCA: is occluded COLLATERAL FLOW: Collateral flow from Left to Right COMPLICATIONS No Complications PROCEDURE MEDICATIONS Versed 1 mg IV Fentanyl 50 mcg IV Oxygen: 2 L/min via nasal cannula SUMMARY OF HEMODYNAMIC DATA Time AIR REST ECG 07:11:38 AO 104/74 (89) SA 08:01:35 LV 117/3, 10 08:08:01 LV 102/4, 7 08:08:08 LV 103/9, 13 08:08:38 LV 111/9, 12 08:08:45 LVp 107/5, 10 08:08:51 AOp 119/68 (90) 08:08:56 RM AIR REST 08:38:57 Signed By Samuel Keys MD On 12/14/2019 18:18:18 Signed By Samuel Keys MD On 12/11/2019 08:38:50 Samuel Keys MD
== END 2019-12-11 10:20 | disposition home or self-care (01) ==
LOC: CLSP 06:25
PROVIDERS: PCP Internal Medicine; Referring Provider Internal Medicine Cardiovascular Disease; Visit Provider Internal Medicine Cardiovascular Disease
DX: R07.9 Chest pain, unspecified (principal); I25.10 Atherosclerotic heart disease of native coronary artery without angina pectoris; I47.2 Ventricular tachycardia; I49.5 Sick sinus syndrome; J44.9 Chronic obstructive pulmonary disease, unspecified; I10 Essential (primary) hypertension; E03.9 Hypothyroidism, unspecified; E78.5 Hyperlipidemia, unspecified; M54.9 Dorsalgia, unspecified; G89.4 Chronic pain syndrome; G47.33 Obstructive sleep apnea (adult) (pediatric); F32.9 Major depressive disorder, single episode, unspecified; F41.9 Anxiety disorder, unspecified; Z72.0 Tobacco use; Z79.899 Other long term (current) drug therapy; Z90.49 Acquired absence of other specified parts of digestive tract; Z95.0 Presence of cardiac pacemaker
CPT/HCPCS: 93005; 93458; 99152; 99153; J7040; Q9967; C1769; C1894

== ENCOUNTER → 2020-01-07 15:08 | Outpatient (CLI) | payer MEDICARE, MEDICAID, SELFPAY ==
[2020-01-07 17:08] LABS: ALB/GLOB Ratio 0.8 RATIO (0.9-2.4); AST(SGOT) 14 U/L (15-37); Alanine Aminotransfer ALT/SGPT 26 U/L (13-56); Albumin, Serum 3.7 g/dL (3.2-5.0); Alkaline Phosphatase 145 U/L (45-117); Anion Gap 3 (5-15); BUN 25 mg/dL (7-18); BUN/Creat Ratio 18.2 RATIO (10-20); Calcium,Total 9.4 mg/dL (8.5-10.1); Chloride 108 mmol/L (98-107); Creatinine, Serum 1.37 mg/dL (0.55-1.02); EST Glomerular Filtration Rate 43 mL/min (>60); Est Glom Filt Rate - Afr Amer 52 mL/min (>60); Globulin 4.8 g/dL (2.2-4.2); Glucose 98 mg/dL (74-106); Potassium 5.9 mmol/L (3.5-5.1); Protein, Total 8.5 g/dL (6.4-8.2); Sodium Level 136 mmol/L (136-145)
== END ==
PROVIDERS: PCP Internal Medicine; Referring Provider Internal Medicine; Visit Provider Internal Medicine
DX: I10 Essential (primary) hypertension (principal)
CPT/HCPCS: 36415; 80053

== ENCOUNTER 2020-01-09 16:22 | Emergency (ER) | payer MEDICARE, MEDICAID, SELFPAY ==
[2020-01-09 16:23] VITALS: BP 96/49; PULSE 64; RESP 18; TEMP 36.3; O2SAT 98; BMI 31.1
--- NOTE | 2020-01-09 16:37 | RAD_ITS ---
STUDY: X-RAY CHEST REASON FOR EXAM: Female, 54 years old. Fell, right sided rib pain. TECHNIQUE: PA and lateral views of the chest. COMPARISON: 12/03/2019 FINDINGS: Two lead cardiac conduction device is seen via the left subclavian vein with lead tips projecting over the right atrium and right ventricle, respectively. The lungs are clear and expanded. There is no demonstrated pleural abnormality. Normal size heart. Normal mediastinum and archana. Normal visualized pulmonary arteries. Normal visualized aortic arch and descending thoracic aorta. There are mild degenerative changes. Normal visualized ribs, clavicles, and shoulders. There is no demonstrated abnormality of the visualized soft tissue structures of the upper abdomen. RAD/Chest PA and Lateral IMPRESSION: Stable, nonacute x-ray examination of the chest. Electronically Signed: Jamar Neff MD ([place]) at 17:14 EDT , Service support ,
--- NOTE | 2020-01-09 16:38 | ED.VISSUMM ---
- ER Visit Summary Date of Service: 01/09/20 Chief Complaint: Right chest wall pain after fall and hitting on the table History of Present Illness: The patient is a 54 F daily, hypokalemia and sick sinus syndrome with a pacemaker. Patient states that Saturday she fell at home hitting her right lower anterior rib cage on a table. Since that time she has had pain worse with movement, deep breathing or coughing. Prior to the fall and injury she had no pain. No hemoptysis. No shortness of breath. Physical Examination: Female no acute distress vital signs stable initial blood pressure is low at 96/49. Pulse ox 98% on room air no signs hypoxia. HEENT exam unremarkable atraumatic. Pupils round reactive light. No facial trauma. No droop normal speech. Neck nontender. No lymphadenopathy. No meningismus. Lungs clear to auscultation bilaterally. Heart regular rhythm no murmur rate about 65. Chest wall right lower midline midclavicular chest wall tenderness. No ecchymosis or bruising. No subcu air crepitus. No gross bony deformity. Left chest wall and back nontender. Abdomen soft nontender normal bowel sounds no peritoneal signs. No abdominal tenderness or bruising. Moving all 4 extremities. Neurovascular intact. Nontender. No deformity. Neurologically patient is awake alert with no focal motor deficits. GCS of 15. Test Results: X-ray AP and lateral 2 views read by myself neurologist. Showed no acute abnormality. Left-sided pacemaker. No obvious pneumothorax or rib fracture. Emergency Department Course and Treatment: [place] for pain. Patient falling and chest wall pain x-ray to be obtained looking for possible rib fracture versus pneumothorax versus other etiologies. Treatment Plan: Repeat exam patient doing well 6:10 PM. Went over x-ray results. Ice to the area. Tylenol and/or Motrin for pain. Follow-up if not improving. Disposition: Discharge Impression: Acute fall with right chest wall contusion This note was generated with [employer] dictation software. It may contain incorrect words, spelling, and punctuation that were not noted in review of the chart prior to signing ED Disposition - Plan for ED Patient: Referrals: Charla Wadsworth MD [Primary Care Provider] -
[2020-01-09] MEDS: HYDROcodone Bitartrate/Apap 5/325 Tablet PO (17:20)
--- NOTE | 2020-01-09 18:15 | ED.DEP ---
ED Disposition - Plan for ED Patient: Disposition: Home or Assisted Living Instructions: ED CHEST CONTUSION Referrals: Charla Wadsworth MD [Primary Care Provider] - 1 Week if not improving Additional Instructions: Ice to the area on the chest that sore. Tylenol for pain and Motrin for pain and inflammation. Your chest x-ray shows no obvious rib fractures. Sometimes there is a small crack in the rib that we can see on x-ray. Follow-up with your doctor if not improving.
== END 2020-01-09 18:21 | disposition home or self-care (01) ==
PROVIDERS: Emergency Provider Emergency Medicine; PCP Internal Medicine
DX: S20.211A Contusion of right front wall of thorax, initial encounter (principal); I25.10 Atherosclerotic heart disease of native coronary artery without angina pectoris; W19.XXXA Unspecified fall, initial encounter; Z95.0 Presence of cardiac pacemaker
CPT/HCPCS: 71046; 99283

== ENCOUNTER 2020-01-13 15:39 | Emergency (ER) | payer MEDICARE, MEDICAID, SELFPAY ==
[2020-01-12 16:08] VITALS: BMI 32.1
[2020-01-13 15:40] VITALS: BP 93/67; PULSE 66; RESP 15; TEMP 36.4; O2SAT 98; BMI 31.1
--- NOTE | 2020-01-13 16:30 | ED.VIS.GEN ---
History of Present Illness Chief Complaint: Dental Narrative: Presents with a right lower jaw abscess she was to start her on amoxicillin yesterday but has somewhat worsened. No fever chills cough or congestion. Past Medical History - Allergies and Home Meds Allergies/Adverse Reactions: Allergies latex Allergy (Intermediate, Verified 01/12/20 16:09) skin irritation aspirin Adverse Reaction (Severe, Verified 01/12/20 16:09) Nausea/Vom/Diarrhea erythromycin base [Erythromycin Base] Adverse Reaction (Severe, Verified 01/12/20 16:09) Vomiting,diarrhea NSAIDS (Non-Steroidal Anti-Inflamma Adverse Reaction (Severe, Verified 01/12/20 16:09) Vomiting,diarrhea Primary Care Physician: Charla Wadsworth MD [Primary Care Provider] - Past Medical History: - - Reviewed, extensive medical history Surgical History: cholecystectomy, pacemaker implantation, - - Partial gastrectomy secondary to excision neuroendocrine tumor, appendectomy, cholecystectomy, hysterectomy, back surgery, elbow surgery, pacemaker. Smoking Status: Former smoker - Family History Paternal Family History: Family History (Last Reviewed 01/12/20 @ 16:10 by Jade Pat) Daughter Multiple sclerosis Father CAD (coronary artery disease) Heart disease Multiple sclerosis Grandfather Heart disease Uncle Heart disease Aunt No problems noted. Sister Colon cancer Mother Hypertension Family History: Reports: High Cholesterol, Heart Disease, Hypertension, - - Father with history of multiple sclerosis. Maternal Family History: Family History (Last Reviewed 01/12/20 @ 16:10 by Jade Pat) Daughter Multiple sclerosis Father CAD (coronary artery disease) Heart disease Multiple sclerosis Grandfather Heart disease Uncle Heart disease Aunt No problems noted. Sister Colon cancer Mother Hypertension Family History: Reports: Hypertension Review of Systems All systems negative except as indicated General: Denies: Fever Eyes: Reports: -, - ENT: Reports: - - Dental pain as in HPI. No difficulty swallowing. Voice change. Cardiovascular: Denies: Chest pain Respiratory: Denies: Dyspnea Musculoskeletal: Denies: Neck pain Skin: Denies: Rash Neurological: Denies: Headache, Weakness Hematologic: Denies: Easy bruising, Easy bleeding Physical Exam Vital Signs/Narrative: Vital Signs Temp Pulse Resp BP Pulse Ox 01/13/20 15:40 97.5 F L 66 15 93/67 98 General: Well nourished, Well developed, - - She appears in some distress ENT: - - She has right lower jaw swelling, tenderness and induration in the gingiva next to her molars. Neck: Supple Cardiovascular: Regular rate, Regular rhythm Abdomen: Soft Back: Nontender Extremities: No edema Skin: Normal color Diagnostic/Tx/Re-eval - Medical Decision Making Patient has I&D, she tolerated it well I will discharge with changing antibiotics Procedures Procedure(s): Incision and drainage. 1% lidocaine was used, number 25-gauge needle. 11. Blade. Pus was expectorated in the perigingival region, it is mixed with blood. Patient tolerated procedure well. ED Disposition - Plan for ED Patient: Disposition: Home or Assisted Living Diagnosis: Dental abscess Instructions: ED ABSCESS DENTAL Prescriptions: Clindamycin [Cleocin] 300 mg PO 4X/DAY #80 cap Prescription Printed
[2020-01-13] MEDS: Clindamycin HCl 150 MG Capsule 300 MG PO (17:01)
[2020-01-13] MEDS: HYDROcodone Bitartrate/Apap 5/325 Tablet PO (17:01)
--- NOTE | 2020-02-06 18:52 | CM.ED ---
Social Work Patient ED Care Plan has been approved. Telephone call to patient, this social and human services assistant introduced self and social and human services assistant role. Patient agreeable to speak with this social and human services assistant. Patient educated on ED Care Plan. Patient reports to be currently working on getting on [place] Waiver program as patient falls a lot at home. Patient reports to live alone and to use a walker to ambulate. Patient states to have a medical alert button. All patient questions answered. ED Care Plan mailed to patient along with resources. Keegan CRAIN, LOUIE
== END 2020-01-13 17:04 | disposition home or self-care (01) ==
LOC: ED 16:38
PROVIDERS: Emergency Provider Emergency Medicine; PCP Internal Medicine
DX: K04.7 Periapical abscess without sinus (principal); Z79.899 Other long term (current) drug therapy; Z95.0 Presence of cardiac pacemaker; Z87.891 Personal history of nicotine dependence
CPT/HCPCS: 41800; 99283

== ENCOUNTER → 2020-01-28 13:24 | Outpatient (CLI) | payer MEDICARE, MEDICAID, SELFPAY ==
[2020-01-13 15:40] VITALS: BMI 31.1
[2020-01-28 14:40] LABS: Anion Gap 3 (5-15); BUN 16 mg/dL (7-18); BUN/Creat Ratio 17.3 RATIO (10-20); Calcium,Total 9.4 mg/dL (8.5-10.1); Chloride 115 mmol/L (98-107); Creatinine, Serum 0.93 mg/dL (0.55-1.02); EST Glomerular Filtration Rate 67 mL/min (>60); Est Glom Filt Rate - Afr Amer 81 mL/min (>60); Glucose 87 mg/dL (74-106); Potassium 4.3 mmol/L (3.5-5.1); Sodium Level 142 mmol/L (136-145)
[2020-01-28 14:45] LABS: AST(SGOT) 11 U/L (15-37); Alanine Aminotransfer ALT/SGPT 23 U/L (13-56); Albumin, Serum 3.5 g/dL (3.2-5.0); Alkaline Phosphatase 133 U/L (45-117); Bilirubin, Direct < 0.05 mg/dL (0.00-0.30); Cholesterol 155 mg/dL (200); Globulin 4.3 g/dL (2.2-4.2); High Density Lipoprotein 30 mg/dL; Protein, Total 7.8 g/dL (6.4-8.2); Triglycerides 175 mg/dL; Very Low Density Lipoprotein 35 mg/dL (5-40)
== END ==
PROVIDERS: PCP Internal Medicine; Referring Provider Internal Medicine Cardiovascular Disease; Visit Provider Internal Medicine Cardiovascular Disease
DX: E87.5 Hyperkalemia (principal); E78.00 Pure hypercholesterolemia, unspecified
CPT/HCPCS: 36415; 80048; 80061; 80076

== ENCOUNTER → 2020-02-05 10:43 | Outpatient (CLI) | payer MEDICARE, MEDICAID, SELFPAY ==
[2020-01-12 16:08] VITALS: BMI 32.1
[2020-01-13 15:40] VITALS: BMI 31.1
--- NOTE | 2020-02-05 10:45 | BI_ITS ---
MAMMOGRAPHY - BILATERAL SCREENING REASON FOR EXAM: Female, 54 years old. Routine annual screening examination. PERTINENT HISTORY: TECHNIQUE: Digital bilateral breast lucy (3D mammographic acquisition) in the CC and MLO projections. 2-D mediolateral oblique (MLO) and craniocaudad (CC) views of both breasts were obtained. CAD: Full Field Digital Mammography with Computer Added Detection was performed. COMPARISON: Baseline FINDINGS: Breast Composition: Scattered There are no dominant masses or suspicious calcifications. No other significant abnormalities are identified. The cardiac pacemaker is noted projected over the medial aspect of the superior left breast. BI/SCREEN MAMM (CAD) W/LUCY BILAT IMPRESSION: Stable bilateral screening mammogram. Yearly follow-up mammogram recommended. (A) ASSESSMENT CATEGORY: BIRADS Category 1: Negative. A letter regarding these results will be sent to the patient by the facility within 30 days. Approximately 10% of breast cancers are not detected by mammography. A normal mammogram should not delay biopsy of a clinically suspicious abnormality. [id number] Electronically Signed: Gautam Mattson, at 17:05 EST Tel , Service support ,
== END ==
PROVIDERS: PCP Internal Medicine; Referring Provider Internal Medicine; Visit Provider Internal Medicine
DX: Z12.31 Encounter for screening mammogram for malignant neoplasm of breast (principal)
CPT/HCPCS: 77063; 77067

== ENCOUNTER → 2020-02-25 14:59 | Outpatient (CLI) | payer MEDICARE, MEDICAID, SELFPAY ==
[2020-02-25 14:20] VITALS: BMI 32.5
[2020-02-25 17:34] LABS: Anion Gap 6 (5-15); BUN 16 mg/dL (7-18); BUN/Creat Ratio 15.8 RATIO (10-20); Calcium,Total 9.6 mg/dL (8.5-10.1); Chloride 107 mmol/L (98-107); Creatinine, Serum 1.01 mg/dL (0.55-1.02); EST Glomerular Filtration Rate 61 mL/min (>60); Est Glom Filt Rate - Afr Amer 73 mL/min (>60); Glucose 97 mg/dL (74-106); Potassium 4.6 mmol/L (3.5-5.1); Sodium Level 140 mmol/L (136-145)
== END ==
PROVIDERS: PCP Internal Medicine; Referring Provider Internal Medicine; Visit Provider Internal Medicine
DX: I10 Essential (primary) hypertension (principal); E87.6 Hypokalemia
CPT/HCPCS: 36415; 80048

== ENCOUNTER → 2020-04-27 15:43 | Outpatient (CLI) | payer MEDICARE, MEDICAID, SELFPAY ==
[2020-02-25 14:20] VITALS: BMI 32.5
[2020-04-29 16:08] LABS: Endomysial Antibody IgA Negative (Negative)
[2020-04-29 16:47] LABS: Immunoglobulin A 224 mg/dL (87-352); t-Transglutaminase IgA <2 U/mL (0-3)
== END ==
PROVIDERS: PCP Internal Medicine; Referring Provider Internal Medicine Gastroenterology; Visit Provider Internal Medicine Gastroenterology
DX: R19.7 Diarrhea, unspecified (principal)
CPT/HCPCS: 36415; 82784; 83516; 86140; 86255

== ENCOUNTER → 2020-05-26 14:18 | Outpatient (CLI) | payer MEDICARE, MEDICAID, SELFPAY ==
[2020-05-26 13:57] VITALS: BMI 33.6
[2020-05-26 14:57] LABS: Absolute Lymphocyte Count 2.98 X10^3/uL (0.83-4.51); Absolute Neutrophil Count 12.3 X10^3/uL (2.0-7.7); Basophil# 0.06 X10^3/uL; Basophil% 0.4 % (0-1); Eosinophil# 0.58 X10^3/uL; Eosinophils% 3.4 % (0-5); Hematocrit 45.8 % (37-47); Hemoglobin 14.6 g/dL (12.0-15.0); Lymphocyte # 2.98 X10^3/ul (4.0); Lymphocyte % 17.5 % (19-41); Mean Corp Hgb Conc 31.9 g/dL (32-36); Mean Corpuscular Hgb 28.5 pg (27.0-32.0); Mean Corpuscular Volume 89.3 fL (81-99); Monocyte# 0.99 X10^3/uL; Monocyte% 5.8 % (0-10); NRBC Flagged by Analyzer 0 % (0-5); Neutrophil # 12.26 X10^3/uL (2.7-7.7); Neutrophil % 71.7 % (47-70); Platelet Count 390 K/mm3 (150-450); RBC Distribution Width SD 46.3 fl (35.1-43.9); Red Blood Count 5.13 M/mm3 (4.2-5.4); White Blood Count 17.1 K/mm3 (4.4-11.0)
[2020-05-26 15:33] LABS: ALB/GLOB Ratio 0.7 RATIO (0.9-2.4); AST(SGOT) 13 U/L (15-37); Alanine Aminotransfer ALT/SGPT 23 U/L (13-56); Albumin, Serum 3.5 g/dL (3.2-5.0); Alkaline Phosphatase 157 U/L (45-117); Anion Gap 5 (5-15); BUN 14 mg/dL (7-18); BUN/Creat Ratio 10.9 RATIO (10-20); Calcium,Total 9.5 mg/dL (8.5-10.1); Chloride 108 mmol/L (98-107); Creatinine, Serum 1.29 mg/dL (0.55-1.02); EST Glomerular Filtration Rate 46 mL/min (>60); Est Glom Filt Rate - Afr Amer 55 mL/min (>60); Globulin 4.7 g/dL (2.2-4.2); Glucose 109 mg/dL (74-106); Potassium 4.2 mmol/L (3.5-5.1); Protein, Total 8.2 g/dL (6.4-8.2); Sodium Level 139 mmol/L (136-145)
== END ==
PROVIDERS: PCP Internal Medicine; Referring Provider Internal Medicine; Visit Provider Internal Medicine
DX: I10 Essential (primary) hypertension (principal)
CPT/HCPCS: 36415; 80053; 85025

== ENCOUNTER → 2020-06-03 13:58 | Outpatient (CLI) | payer MEDICARE, MEDICAID, SELFPAY ==
[2020-02-25 14:20] VITALS: BMI 32.5
[2020-05-26 13:57] VITALS: BMI 33.6
== END ==
PROVIDERS: PCP Internal Medicine; Referring Provider Internal Medicine Gastroenterology; Visit Provider Internal Medicine Gastroenterology
DX: Z11.59 Encounter for screening for other viral diseases (principal)
CPT/HCPCS: 87635; C9803; U0002

== ENCOUNTER 2020-06-25 16:11 | Emergency (ER) | payer MEDICARE, MEDICAID, SELFPAY ==
[2020-05-26 13:57] VITALS: BMI 33.6
[2020-06-25 16:13] VITALS: BP 140/97; PULSE 82; RESP 18; TEMP 37.4; O2SAT 93; BMI 31.1
--- NOTE | 2020-06-25 16:22 | ED.DCSUM_ITS ---
History of Present Illness Chief Complaint: Lower Extremity Injury Narrative: Patient presents with tingling in pain and both arms and both legs. She thinks this may be secondary to potassium she has had hypokalemia in the past. She also had some throat edema and she tells me her uvula was enlarged this morning it was difficult to swallow. She has no fever chills cough or congestion no chest pain or shortness of breath. Past medical history: Atherosclerotic heart disease of [place] coronary artery without angina pectoris (Chronic) Intermittent palpitations (Chronic) Sick sinus syndrome (Chronic) Monomorphic ventricular tachycardia (Chronic) Essential (primary) hypertension (Chronic) Hyperlipidemia (Chronic) Intractable vomiting (Chronic) Diarrhea (Chronic) Hypokalemia (Chronic) Primary malignant neuroendocrine tumor of stomach (Chronic) Polycythemia (Chronic) ELOY (obstructive sleep apnea) (Chronic) COPD (chronic obstructive pulmonary disease) (Chronic) Abdominal pain (Chronic) Anemia (Chronic) Anxiety and depression (Chronic) Chronic pain syndrome (Chronic) Familial combined hyperlipidemia (Chronic) GERD (gastroesophageal reflux disease) (Chronic) Hypoglycemia (Chronic) Hypothyroidism (Chronic) Neuroendocrine neoplasm of stomach (Chronic) ELOY (obstructive sleep apnea) (Chronic) Obesity (Chronic) Obstructive sleep apnea (Chronic) Medications: Reviewed Social history: Noncontributory Review of systems: All systems negative except as indicated General: No fever Eyes: No visual changes ENT: Upper airway congestion and uvular enlargement as above Neck: No neck pain Cardiovascular: No chest pain Respiratory: No shortness of breath or cough Gastrointestinal: No abdominal pain, nausea vomiting or diarrhea Genitourinary: No dysuria Musculoskeletal: Extremity pain and paresthesias as above Skin: No rash Neurological: No memory loss, confusion or any focal weakness. Paresthesias as above Psych: No recent behavioral changes Hematologic: No easy bleeding or easy bruising Patient physical exam General: Well nourished, Well developed, No Acute Distress Head: Normocephalic, Atraumatic Eyes: Conjunctiva not pale ENT: Moist mucous membranes. Some upper airway congestion uvula is slightly enlarged there is some postnasal drip and rhinorrhea no exudates. Neck: Supple, Nontender, No lymphadenopathy Cardiovascular: Regular rate, Regular rhythm Respiratory: No distress, CTA bilaterally Abdomen: Soft, Nontender, Nondistended Back: Nontender, Normal Inspection. Negative for: CVA tenderness Extremities: Full range of motion without any difficulty normal strength Skin: Normal color, No rash Neurological: Alert, Normal Strength, Normal Sensation Psychological: Normal affect Past Medical History - Allergies and Home Meds Allergies/Adverse Reactions: Allergies latex Allergy (Intermediate, Verified 05/26/20 13:53) skin irritation aspirin Adverse Reaction (Severe, Verified 05/26/20 13:53) Nausea/Vom/Diarrhea erythromycin base [Erythromycin Base] Adverse Reaction (Severe, Verified 05/26/20 13:53) Vomiting,diarrhea NSAIDS (Non-Steroidal Anti-Inflamma Adverse Reaction (Severe, Verified 05/26/20 13:53) Vomiting,diarrhea Primary Care Physician: Charla Wadsworth MD [Primary Care Provider] - Surgical History: cholecystectomy, pacemaker implantation, - - Partial gastrectomy secondary to excision neuroendocrine tumor, appendectomy, cholecystectomy, hysterectomy, back surgery, elbow surgery, pacemaker. Smoking Status: Former smoker - Family History Paternal Family History: Family History (Last Reviewed 02/25/20 @ 14:30 by Smita Zheng) Daughter Multiple sclerosis Father CAD (coronary artery disease) Heart disease Multiple sclerosis Grandfather Heart disease Uncle Heart disease Aunt No problems noted. Sister Colon cancer Mother Hypertension Family History: Reports: High Cholesterol, Heart Disease, Hypertension, - - Father with history of multiple sclerosis. Maternal Family History: Family History (Last Reviewed 02/25/20 @ 14:30 by Smita Zheng) Daughter Multiple sclerosis Father CAD (coronary artery disease) Heart disease Multiple sclerosis Grandfather Heart disease Uncle Heart disease Aunt No problems noted. Sister Colon cancer Mother Hypertension Family History: Reports: Hypertension Physical Exam Vital Signs/Narrative: Vital Signs Temp Pulse Resp BP Pulse Ox 06/25/20 16:13 99.4 F H 82 18 140/97 H 93 Diagnostic/Tx/Re-eval - Medical Decision Making She has a normal potassium. However she does have leukocytosis she has had this in the past and has a history of polycythemia. I do not believe further work-up is needed onto this since this is somewhat chronic. She has no fever chills cough congestion urinary symptoms abdominal pain or any other symptoms. I gave her gabapentin in the ED and her symptoms improved. She wishes to be discharged and I will discharge her in stable condition. ED Disposition - Plan for ED Patient: Disposition: [facility] Diagnosis: Bilateral leg paresthesia Instructions: ED Paraesthesias Referrals: Charla Wadsworth MD [Primary Care Provider] - 2 Days
[2020-06-25] MEDS: Gabapentin 600 MG Tablet PO (16:38)
[2020-06-25] MEDS: dexAMETHasone 10 MG/ML Vial IV (17:00)
[2020-06-25 17:08] LABS: Absolute Lymphocyte Count 2.66 X10^3/uL (0.83-4.51); Absolute Neutrophil Count 16.2 X10^3/uL (2.0-7.7); Basophil# 0.06 X10^3/uL; Basophil% 0.3 % (0-1); Eosinophil# 0.37 X10^3/uL; Eosinophils% 1.8 % (0-5); Hematocrit 42.8 % (37-47); Hemoglobin 13.7 g/dL (12.0-15.0); Lymphocyte # 2.66 X10^3/ul (0.83-4.51); Mean Corpuscular Volume 90.5 fL (81-99); Mean Platelet Vol. 9.2 fl (6.2-12.0); Monocyte# 1.03 X10^3/uL; NRBC Flagged by Analyzer 0.1 % (0-5); Neutrophil # 16.17 X10^3/uL (2.7-7.7); Neutrophil % 79.3 % (47-70); Platelet Count 283 K/mm3 (150-450); RBC Distribution Width CV 14.8 % (11.6-14.6); RBC Distribution Width SD 49.6 fl (35.1-43.9); Red Blood Count 4.73 M/mm3 (4.2-5.4); White Blood Count 20.4 K/mm3 (4.4-11.0)
[2020-06-25 17:41] LABS: ALB/GLOB Ratio 0.7 RATIO (0.9-2.4); AST(SGOT) 20 U/L (15-37); Alanine Aminotransfer ALT/SGPT 22 U/L (13-56); Albumin, Serum 3.4 g/dL (3.2-5.0); Alkaline Phosphatase 146 U/L (45-117); Anion Gap 4 (5-15); BUN 11 mg/dL (7-18); BUN/Creat Ratio 10.2 RATIO (10-20); Chloride 105 mmol/L (98-107); Creatinine, Serum 1.08 mg/dL (0.55-1.02); EST Glomerular Filtration Rate 56 mL/min (>60); Est Glom Filt Rate - Afr Amer 68 mL/min (>60); Globulin 4.7 g/dL (2.2-4.2); Glucose 88 mg/dL (74-106); Potassium 3.6 mmol/L (3.5-5.1); Protein, Total 8.1 g/dL (6.4-8.2); Sodium Level 138 mmol/L (136-145)
== END 2020-06-25 18:00 | disposition home or self-care (01) ==
PROVIDERS: Emergency Provider Emergency Medicine; PCP Internal Medicine
DX: R20.2 Paresthesia of skin (principal); R60.9 Edema, unspecified; R13.10 Dysphagia, unspecified; I25.10 Atherosclerotic heart disease of native coronary artery without angina pectoris; I49.5 Sick sinus syndrome; J44.9 Chronic obstructive pulmonary disease, unspecified; I10 Essential (primary) hypertension; G47.33 Obstructive sleep apnea (adult) (pediatric); E78.49 Other hyperlipidemia; E03.9 Hypothyroidism, unspecified; K21.9 Gastro-esophageal reflux disease without esophagitis; G89.4 Chronic pain syndrome; E66.9 Obesity, unspecified; Z79.899 Other long term (current) drug therapy; Z87.891 Personal history of nicotine dependence; Z90.710 Acquired absence of both cervix and uterus; Z95.0 Presence of cardiac pacemaker
CPT/HCPCS: 80053; 85025; 96374; 99284; A4216

== ENCOUNTER → 2020-06-27 10:01 | Outpatient (CLI) | payer MEDICARE, MEDICAID, SELFPAY ==
[2020-06-25 16:13] VITALS: BMI 31.1
--- NOTE | 2020-06-27 10:05 | RAD_ITS ---
STUDY: X-RAY - LEFT KNEE REASON FOR EXAM: Chronic left knee pain, no specific injury. TECHNIQUE: 4 view(s) of the knee. COMPARISON: None. FINDINGS: Normal visualized distal femur. Normal visualized proximal tibia and fibula. Normal proximal tibiofibular articulation. Normal medial femorotibial compartment. Normal lateral femorotibial compartment. Normal patellofemoral articulation. There is a small enthesophyte at the superior pole of the patella. RAD/Knee 4 or More Views IMPRESSION: Small enthesophyte at the superior pole of the patella. Otherwise, unremarkable x-ray examination of the left knee. Electronically Signed: Matthew Hernández MD at 10:53 EDT Tel , Service support ,
--- NOTE | 2020-06-27 10:14 | RAD_ITS ---
STUDY: X-RAY - RIGHT KNEE REASON FOR EXAM: Chronic right knee pain, no specific injury. TECHNIQUE: 4 view(s) of the knee. COMPARISON: Radiographs 03/28/2015. FINDINGS: Normal visualized distal femur. Normal visualized proximal tibia and fibula. Normal proximal tibiofibular articulation. Normal medial femorotibial compartment. Normal lateral femorotibial compartment. Normal patellofemoral articulation. There is a joint effusion. There is an enthesophyte at the superior pole of the patella. RAD/Knee 4 or More Views IMPRESSION: Right knee joint effusion. Patellar enthesopathy. Electronically Signed: Matthew Hernández MD at 10:53 EDT Tel , Service support ,
--- NOTE | 2020-06-27 10:14 | RAD_ITS ---
STUDY: X-RAY - PELVIS AND LEFT HIP REASON FOR EXAM: Chronic left hip pain, no specific injury. TECHNIQUE: 2 views of the pelvis and hip. COMPARISON: Radiographs 06/29/2018. FINDINGS: There is a small pelvic phlebolith. There are postoperative changes of the lower lumbar spine. There is bilateral sacroiliac arthrosis. Normal bilateral superior and inferior pubic rami. Normal pubic symphysis. Normal bilateral ischial tuberosities. Normal visualized femoral head. Normal acetabulum. There is a small capsular calcification of the left hip joint adjacent to the lateral acetabulum as on the prior study. Otherwise, unremarkable left hip joint. RAD/HIP, UNI W/ Pelvis 2-3 Views IMPRESSION: Small capsular calcification of the left hip joint adjacent to the lateral acetabulum without other abnormality demonstrated of the left hip joint. Bilateral sacroiliac arthrosis. Electronically Signed: Matthew Hernández MD at 11:09 EDT Tel , Service support ,
== END ==
PROVIDERS: PCP Internal Medicine; Referring Provider Internal Medicine; Visit Provider Internal Medicine
DX: M25.552 Pain in left hip (principal); M25.561 Pain in right knee; M25.562 Pain in left knee
CPT/HCPCS: 73502; 73564

== ENCOUNTER → 2020-07-07 13:14 | Outpatient (CLI) | payer MEDICARE, MEDICAID, SELFPAY ==
[2020-06-25 16:13] VITALS: BMI 31.1
--- NOTE | 2020-07-07 13:20 | RAD_ITS ---
STUDY: X-RAY CHEST REASON FOR EXAM: Female, 54 years old. CHEST PAIN SOB TECHNIQUE: PA and lateral views of the chest. COMPARISON: Comparison is made with prior study dated 01/09/2020. FINDINGS: The lungs are clear and expanded. There is no demonstrated pleural abnormality. Normal size heart. A left-sided dual chamber pacemaker is seen. Normal mediastinum and archana. Normal visualized pulmonary arteries. Normal visualized aortic arch and descending thoracic aorta. There are degenerative changes of the visualized thoracic spine. Normal visualized ribs, clavicles, and shoulders. There is no demonstrated abnormality of the visualized soft tissue structures of the upper abdomen. RAD/Chest PA and Lateral IMPRESSION: No acute abnormality is seen. Electronically Signed: Ming Roberts MD at 13:35 EDT , Service support ,
--- NOTE | 2020-07-07 13:39 | EKG12_ITS ---
Test Reason : PAIN Blood Pressure : / mmHG Vent. Rate : 054 BPM Atrial Rate : 054 BPM P-R Int : 160 ms QRS Dur : 078 ms QT Int : 454 ms P-R-T Axes : 029 067 075 degrees QTc Int : 430 ms Sinus bradycardia Otherwise normal ECG Confirmed by AIDEN GAUTAM, LEELEE ([id number]), copy editor OTIS RUIZ ([id number]) on 07/08/2020 10:08:03 AM Referred By: Priya Munoz Confirmed By:LEELEE WOLFE MD
== END ==
PROVIDERS: PCP Internal Medicine; Referring Provider Nurse Practitioner Family; Visit Provider Nurse Practitioner Family
DX: R07.9 Chest pain, unspecified (principal); R06.02 Shortness of breath; Z79.899 Other long term (current) drug therapy
CPT/HCPCS: 71046; 93005

== ENCOUNTER 2020-07-21 18:07 | Emergency (ER) | payer MEDICARE, MEDICAID, SELFPAY ==
[2020-07-18 14:02] VITALS: BMI 33.5
[2020-07-21 18:08] VITALS: BP 154/103; PULSE 60; RESP 18; TEMP 37.6; O2SAT 97; BMI 35.0
--- NOTE | 2020-07-21 18:28 | EKG12_ITS ---
Test Reason : CP Blood Pressure : / mmHG Vent. Rate : 060 BPM Atrial Rate : 060 BPM P-R Int : 210 ms QRS Dur : 086 ms QT Int : 450 ms P-R-T Axes : 028 048 038 degrees QTc Int : 450 ms Atrial-paced rhythm with prolonged AV conduction Abnormal ECG Confirmed by AIDEN GAUTAM, LEELEE ([id number]), restaurant expeditor OTIS RUIZ ([id number]) on 07/25/2020 2:51:27 PM Referred By: JOSHUA Confirmed By:LEELEE WOLFE MD
[2020-07-21 18:35] VITALS: O2SAT 97
--- NOTE | 2020-07-21 18:41 | ED.RN ---
pt reports chest pain, states nitro gives her a severe headache and she refuses to take it. physician informed. pt ambulates to restroom. station cleaning porter reapplied on return to room. pt awaiting xray. call light in reach and side rails up x 2.
--- NOTE | 2020-07-21 18:43 | RAD_ITS ---
STUDY: X-RAY CHEST REASON FOR EXAM: Female, 54 years old. chest pain TECHNIQUE: 1 view COMPARISON: Prior chest radiograph of 07/07/2020 FINDINGS: The lungs are clear and expanded. There is no demonstrated pleural abnormality. Normal size heart. Right atrial and ventricular pacemaker leads remain unchanged in position. Normal mediastinum and archana. Normal visualized pulmonary arteries. Normal visualized aortic arch and descending thoracic aorta. Normal visualized thoracic spine. Normal visualized ribs, clavicles, and shoulders. There is no demonstrated abnormality of the visualized soft tissue structures of the upper abdomen. RAD/Chest 1 View (Portable) IMPRESSION: No acute cardiopulmonary findings or changes. ICD remains stable in position. Negative for cardiomegaly, pulmonary venous congestion or pleural effusion. Electronically Signed: Katharine Olea MD at 19:20 EDT , Service support ,
[2020-07-21 18:45] LABS: Absolute Lymphocyte Count 2.62 X10^3/uL (0.83-4.51); Absolute Neutrophil Count 8.5 X10^3/uL (2.0-7.7); Basophil# 0.07 X10^3/uL; Basophil% 0.5 % (0-1); Eosinophil# 0.53 X10^3/uL; Eosinophils% 4.1 % (0-5); Hematocrit 47.4 % (37-47); Hemoglobin 16.2 g/dL (12.0-15.0); Lymphocyte # 2.62 X10^3/ul (0.83-4.51); Lymphocyte % 20.5 % (19-41); Mean Corp Hgb Conc 34.2 g/dL (32-36); Mean Corpuscular Hgb 29.9 pg (27.0-32.0); Mean Corpuscular Volume 87.6 fL (81-99); Mean Platelet Vol. 9.2 fl (6.2-12.0); Monocyte# 0.96 X10^3/uL; Monocyte% 7.5 % (0-10); NRBC Flagged by Analyzer 0 % (0-5); Neutrophil # 8.49 X10^3/uL (2.7-7.7); Neutrophil % 66.5 % (47-70); Platelet Count 292 K/mm3 (150-450); RBC Distribution Width CV 15.3 % (11.6-14.6); RBC Distribution Width SD 48.3 fl (35.1-43.9); Red Blood Count 5.41 M/mm3 (4.2-5.4); White Blood Count 12.8 K/mm3 (4.4-11.0)
[2020-07-21 18:59] LABS: Anion Gap 4 (5-15); BUN 11 mg/dL (7-18); BUN/Creat Ratio 12.3 RATIO (10-20); Calcium,Total 9.5 mg/dL (8.5-10.1); Chloride 106 mmol/L (98-107); EST Glomerular Filtration Rate 69 mL/min (>60); Est Glom Filt Rate - Afr Amer 84 mL/min (>60); Estimated Creatinine Clearance 53.92 ml/min; Glucose 78 mg/dL (74-106); Potassium 3.9 mmol/L (3.5-5.1); Sodium Level 138 mmol/L (136-145)
--- NOTE | 2020-07-21 20:24 | ED.VIS.CHEST ---
HPI History of Present Illness Chief Complaint: Chest Pain Informant: patient Onset/Context/Timing Onset: Today Activity at onset: gradual Timing: Continuous and Waxes and wanes Quality: Positive for Pressure and Stabbing (In her neck) Location: Substernal Worsened By: Nothing Relieved By: Nothing Associated Symptoms: Positive for Diaphoresis; Negative for Nausea, Vomiting, Dyspnea, Cough, Fever, Lightheadedness, Acid Reflux and Palpitations Narrative Narrative: Patient presents with chest pain that began today. Patient states it is gradually gotten worse throughout the day. Patient describes the pain as a pressure. Patient states she also has some stabbing pain in her neck. Patient states the pain radiates into her back and neck. Patient states nothing makes it worse and nothing makes it better. Patient admits to diaphoresis. Patient denies any shortness of breath or cough. Patient denies any nausea or vomiting. PE Risk Factors: Negative for Recent Travel/Surgery, Prior DVT or PE and Cancer [facility] Medical History Abdominal pain Anemia Anxiety and depression Anxiety and depression Anxiety and depression Atherosclerotic heart disease of [place] coronary artery without angina pectoris Bone fracture Chronic lower back pain Chronic pain syndrome COPD (chronic obstructive pulmonary disease) Diarrhea Essential (primary) hypertension Familial combined hyperlipidemia Gabapentin overdose GERD (gastroesophageal reflux disease) GERD (gastroesophageal reflux disease) Heart murmur History of anxiety disorder History of pneumonia Hyperlipidemia Hypoglycemia Hypokalemia Hypothyroidism Hypothyroidism Intermittent palpitations Intractable vomiting Low back strain Monomorphic ventricular tachycardia Neuroendocrine neoplasm of stomach Neuropathy Neuropathy Obesity Obstructive sleep apnea ELOY (obstructive sleep apnea) ELOY (obstructive sleep apnea) Polycythemia Primary malignant neuroendocrine tumor of stomach PTSD (post-traumatic stress disorder) PTSD (post-traumatic stress disorder) Sacral contusion Sick sinus syndrome Sinus pause Tobacco dependence syndrome Vitamin D deficiency Home Medications buspirone 5 mg tablet 5 mg PO TID #90 tab 02/03/19 [Rx Last Taken 10/23/19] lorazepam 1 mg PO TID PRN PRN 06/30/19 [History Last Taken 10/23/19 21:30] zolpidem 10 mg PO QHS 06/30/19 [History Last Taken 10/22/19] rosuvastatin 10 mg tablet 10 mg PO DAILY #30 tab 12/18/19 [Rx Last Taken Unknown] isosorbide mononitrate 30 mg tablet,extended release 24 hr 30 mg PO QAM #30 tab 12/30/19 [Rx Last Taken Unknown] haloperidol 0.5 mg tablet 0.5 mg PO Q6H PRN tab 01/07/20 [History Last Taken Unknown] potassium chloride 20 mEq tablet,extended release(part/cryst) 20 meq PO DAILY #90 tab 01/08/20 [Rx Last Taken Unknown] promethazine 25 mg tablet 25 mg PO Q6H PRN PRN #30 tab 01/27/20 [Rx Last Taken Unknown] tramadol 50 mg tablet 50 mg PO Q8H PRN 02/25/20 [History Last Taken Unknown] lisinopril 40 mg tablet 40 mg PO DAILY #90 tab 02/29/20 [Rx Last Taken Unknown] levothyroxine 25 mcg tablet 25 mcg PO DAILY #90 tab 03/21/20 [Rx Last Taken Unknown] methocarbamol 750 mg tablet 750 mg PO BID PRN #180 tab 03/21/20 [Rx Last Taken Unknown] omeprazole 40 mg capsule,delayed release 40 mg PO DAILY #90 cap 04/22/20 [Rx Last Taken Unknown] duloxetine 60 mg capsule,delayed release 60 mg PO BID 05/26/20 [History Last Taken Unknown] amlodipine 5 mg tablet 5 mg PO DAILY #90 tablet 06/03/20 [Rx Last Taken Unknown] metoprolol tartrate 100 mg tablet See Rx Instructions .ROUTE .COMPLEX #60 tablet 07/01/20 [Rx Last Taken Unknown] Allergy/AdvReac Type Severity Reaction Status Date / Time latex Allergy Intermediate skin Verified 07/21/20 18:07 irritation aspirin AdvReac Severe Nausea/Vom/ Verified 07/21/20 18:07 Diarrhea erythromycin base AdvReac Severe Vomiting,di Verified 07/21/20 18:07 [Erythromycin Base] arrhea NSAIDS (Non-Steroidal AdvReac Severe Vomiting,di Verified 07/21/20 18:07 Anti-Inflamma arrhea Family History Daughter Multiple sclerosis Father CAD (coronary artery disease) Heart disease Multiple sclerosis Grandfather Heart disease Uncle Heart disease Aunt No problems noted. Sister Colon cancer Mother Hypertension Surgical History history excision neuroendocrine tumor History of appendectomy History of back surgery History of colonoscopy History of elbow surgery History of hysterectomy History of laparotomy History of left heart catheterization (12/11/19) History of resection of stomach Hx of cholecystectomy Presence of permanent cardiac pacemaker (2013) Social History Smoking Status: Former smoker quit date: 03/11/15 Tobacco: How many years used: 30 alcohol intake: never substance use type: does not use what type of physical activity do you participate in: none ROS ROS ED Constitutional Constitutional ED: Denies chills or fever(s) Eyes Eyes: Denies blurry vision or change in vision ENT ENT ED: Denies rhinorrhea or sore throat Cardiovascular Cardiovascular: Reports chest pain; Denies palpitations Respiratory/Chest Respiratory/Chest: Denies cough or dyspnea Gastrointestinal Gastrointestinal: Denies nausea or vomiting Genitourinary Genitourinary ED: Denies dysuria or hematuria Musculoskeletal Musculoskeletal: Reports back pain and neck pain Integumentary Denies abscess or rash Neurologic Neurologic: Reports headache(s); Denies paresthesias or weakness Allergic/Immunologic Allergic/Immunologic ED: Denies mouth swelling or urticaria EXAM Physical Exam Const Vital Signs: 07/21/20 18:08 07/21/20 18:35 Temperature 99.6 F H Temperature Source Oral Pulse Rate 60 Respiratory Rate 18 Respiratory Effort Short of Breath Blood Pressure 154/103 H Blood Pressure Mean 120 Pulse Ox 97 97 Oxygen Delivery Method Room Air Room Air Positive well nourished, well developed and obese General Appearance ED: well developed Nutritional Appearance: obese HEENT normocephalic and atraumatic Eyes PERRL and EOMs intact bilaterally Neck supple and no JVD Chest Wall palpation of chest normal Resp normal respiratory effort and clear to auscultation bilaterally Effort and Inspection: Negative for respiratory distress Cardio regular rate, regular rhythm and no murmurs GI normal to inspection, nondistended, normoactive bowel sounds, soft to palpation, non-tender and non-distended Extremity normal to inspection General Extremety ED: Negative for edema or tenderness General Extremity: Negative for edema Neuro oriented x3, CN's II-XII intact bilaterally and no sensory deficits noted Sensorium / Orientation: awake and alert Motor Exam: strength 5/5 throughout Psych mental status grossly normal Heart Score History: Moderately Suspicious ECG: Normal Age: >45 - <65 years Risk Factors: No Risk Factors Troponin: </= Normal Limit Score: 2 MDM MDM MDM Narrative Medical decision making narrative: Patient refused nitroglycerin. Patient is allergic to aspirin. EKG was obtained. On my interpretation, it showed a normal sinus rhythm with a rate of 60. FL interval, QRS interval, and QTc intervals were all normal. [place] was normal. There are no acute ST or T wave changes. This was unchanged compared to previous EKG dated 07/07/2020. CBC shows a slight leukocytosis of 12.8. Hemoglobin was 16.2 hematocrit was 47.4. Basic metabolic profile was normal. Troponin was normal. Portable 1 view chest x-ray was obtained. On my interpretation, lung [place] are clear. There is normal cardiac silhouette. Bony thorax is normal. There is no acute process noted. Radiologist also interpreted the x-ray and agrees. Patient was given Tylenol for pain. Patient has a HEART score of 2. Patient was advised that this is low risk for acute cardiac event. Patient was instructed to follow-up with her primary care physician in 5 to 7 days. Patient understood and was agreeable with the plan. All questions were answered. Lab Data Attestation: I reviewed the patient's lab results. Labs: Laboratory Results - last 24 hr 07/21/20 07/21/20 17:40 17:40 WBC 12.8 H RBC 5.41 H Hgb 16.2 H Hct 47.4 H MCV 87.6 MCH 29.9 MCHC 34.2 RDW Std Deviation 48.3 H RDW Coeff of Ross 15.3 H Plt Count 292 MPV 9.2 Immature Gran % (Auto) 0.900 Neut % (Auto) 66.5 Lymph % (Auto) 20.5 [place] % (Auto) 7.5 Eos % (Auto) 4.1 Baso % (Auto) 0.5 Absolute Neuts (auto) 8.5 H Absolute Lymphs (auto) 2.62 Nucleated RBC % 0 Sodium 138 Potassium 3.9 Chloride 106 Carbon Dioxide 28.0 Anion Gap 4 L BUN 11 Creatinine 0.90 Estim Creat Clear Calc 53.92 Est GFR (MDRD) Af Amer 84 Est GFR (MDRD) Non-Af 69 BUN/Creatinine Ratio 12.3 Glucose 78 Calcium 9.5 Troponin I < 0.015 Radiography Chest X-Ray - ED: 1 View, Read by ED Physician, Read by Radiologist and Normal Diagnostic Testing: Radiology Impression Chest X-Ray 07/21/20 18:43 IMPRESSION: No acute cardiopulmonary findings or changes. ICD remains stable in position. Negative for cardiomegaly, pulmonary venous congestion or pleural effusion. Electronically Signed: Katharine Olea MD at 19:20 EDT , Service support , EKG Initial EKG: Attestation: I personally reviewed and interpreted this EKG as follows: Interpretation: Sinus Rhythm (60) and No Acute Injury Pattern Prior EKG tracings: available for review Prior: Unchanged Discharge Plan Triage Chief Complaint: Chest Pain ED Provider: Keon Ramirez Dx/Rx/DC Orders Clinical Impression: Chest pain of uncertain etiology Instructions: ED Chest Pain, Uncertain Cause Prescriptions: No Action haloperidol 0.5 mg tablet 0.5 mg PO Q6H PRN (Reason: Anxiety) RF: 0 tramadol 50 mg tablet 50 mg PO Q8H PRN (Reason: Pain Score 1-10) RF: 0 duloxetine 60 mg capsule,delayed release(DR/EC) 60 mg PO BID RF: 0 lorazepam 1 MG tablet 1 mg PO TID PRN PRN (Reason: Anxiety) RF: 0 zolpidem 10 MG tablet 10 mg PO QHS RF: 0 buspirone 5 mg tablet 5 mg PO TID Qty: 90 RF: 7 rosuvastatin 10 mg tablet 10 mg PO DAILY Qty: 30 RF: 11 isosorbide mononitrate 30 mg tablet extended release 24 hr 30 mg PO QAM Qty: 30 RF: 11 potassium chloride 20 mEq tablet,ER particles/crystals 20 meq PO DAILY Qty: 90 RF: 2 promethazine 25 mg tablet 25 mg PO Q6H PRN PRN (Reason: Nausea) Qty: 30 RF: 1 lisinopril 40 mg tablet 40 mg PO DAILY Qty: 90 RF: 3 levothyroxine 25 mcg tablet 25 mcg PO DAILY Qty: 90 RF: 3 methocarbamol 750 mg tablet 750 mg PO BID PRN (Reason: muscle spasticity) Qty: 180 RF: 1 omeprazole 40 mg capsule,delayed release(DR/EC) 40 mg PO DAILY Qty: 90 RF: 3 amlodipine 5 mg tablet 5 mg PO DAILY Qty: 90 RF: 1 metoprolol tartrate 100 mg tablet See Rx Instructions .ROUTE .COMPLEX Qty: 60 RF: 2 Primary Care Provider: Charla Wadsworth Referrals: Charla Wadsworth MD [Primary Care Provider] - 3-5 Days Disposition Disposition: Home, self care Discharge Date/Time: 07/21/20 20:27
--- NOTE | 2020-07-21 20:29 | ED.RN ---
pt left w/o d/c instructions stating she needed to leave bc her ride was outside.
== END 2020-07-21 20:27 | disposition home or self-care (01) ==
PROVIDERS: Emergency Provider Emergency Medicine; PCP Internal Medicine
DX: R07.9 Chest pain, unspecified (principal); M54.2 Cervicalgia; R61 Generalized hyperhidrosis; I25.10 Atherosclerotic heart disease of native coronary artery without angina pectoris; G89.4 Chronic pain syndrome; J44.9 Chronic obstructive pulmonary disease, unspecified; I10 Essential (primary) hypertension; E78.49 Other hyperlipidemia; E03.9 Hypothyroidism, unspecified; D64.9 Anemia, unspecified; K21.9 Gastro-esophageal reflux disease without esophagitis; E55.9 Vitamin D deficiency, unspecified; G62.9 Polyneuropathy, unspecified; E66.9 Obesity, unspecified; G47.33 Obstructive sleep apnea (adult) (pediatric); F43.10 Post-traumatic stress disorder, unspecified; F32.9 Major depressive disorder, single episode, unspecified; F41.9 Anxiety disorder, unspecified; Z79.899 Other long term (current) drug therapy; Z87.891 Personal history of nicotine dependence
CPT/HCPCS: 71045; 80048; 84484; 85025; 93005; 99285; A4216

== ENCOUNTER → 2020-11-04 12:51 | Outpatient (CLI) | payer MEDICARE, MEDICAID, SELFPAY ==
[2020-08-05 08:56] VITALS: BMI 35.0
--- NOTE | 2020-11-04 14:48 | NEURO_ITS ---
NCS and/or EMG Patient Report Ordering Doctor: Robel Stephens DATE OF SERVICE: 11/04/20 Indication: Bilateral hip, knee and foot pain. No associated numbness or weakness. History of low pain surgery. Evaluate for recurrent radiculopathy. Findings: Nerve conduction studies were performed in the right and left lower extremity. The right peroneal motor study recording the extensor digitorum brevis showed a normal amplitude, normal distal latency and normal conduction velocity. No conduction block or focal slowing was present across the fibular neck. The right tibial motor study recording the abductor hallucis brevis showed a normal amplitude, normal distal latency and normal conduction velocity. Right sural sensory response showed a normal amplitude and conduction velocity. The left peroneal motor study recording the extensor digitorum brevis showed a normal amplitude, normal distal latency and normal conduction velocity. No conduction block or focal slowing was present across the fibular neck. The left tibial motor study recording the abductor hallucis brevis showed a normal amplitude, normal distal latency and normal conduction velocity. Left sural sensory response showed a normal amplitude and conduction velocity. Needle EMG of the right lower extremity muscles was performed. The lumbar p araspinal muscles were not examined due to the patient's history of low back surgery. No denervation was present in any muscle. All motor unit morphology, activation and recruitment patterns were normal. Needle EMG of the left lower extremity was omitted due to the symmetry of the patient's symptoms and lack of findings in the right lower extremity. Impression: This is a normal study. There is no electrophysiologic evidence of lumbosacral radiculopathy, plexopathy, or peripheral neuropathy in the right lower extremity. In addition, there were no concerning findings in the nerve conductions studies of the left lower extremity. Please note: the electrodiagnosis of radiculopathy is made on the basis of excluding peripheral nerve lesions on nerve conduction studies and the needle EMG demonstrating denervation and/or reinnervation in the distribution of one or more nerve roots (i.e., acute and/or chronic axonal loss). Thus, electrodiagnostic studies are insensitive in detecting radiculopathy in the absence of axonal loss (e.g., in the setting of compression resulting in intermittent ischemia or mechanical deformation; or demyelination without axonal loss). Thus, clinical correlation is required in the interpretation of this negative electrodiagnostic study for radiculopathy. Bobby Christensen D.O.
== END ==
PROVIDERS: PCP Internal Medicine; Referring Provider Orthopaedic Surgery; Visit Provider Orthopaedic Surgery
DX: M79.605 Pain in left leg (principal); R20.0 Anesthesia of skin; R20.2 Paresthesia of skin
CPT/HCPCS: 95886; 95909

== ENCOUNTER → 2020-11-22 13:47 | Outpatient (CLI) | payer MEDICARE, MEDICAID, SELFPAY ==
[2020-08-05 08:56] VITALS: BMI 35.0
--- NOTE | 2020-11-22 14:13 | CT_ITS ---
STUDY: CT ABDOMEN AND PELVIS WITH CONTRAST REASON FOR EXAM: Female, 55 years old. 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 Oral and amp; IV Readi-CAT and amp; 100mL Isovue-300 was administered. Sagittal and coronal images were reconstructed. Individualized dose optimization techniques were used for this CT. COMPARISON: Comparison is made with prior study dated 11/13/2019. FINDINGS: The visualized lung bases are unremarkable. A dual-chamber pacemaker is seen. The previously seen 1.4 cm x 1.7 cm focal area of increased enhancement in the superior posterior right lobe of the liver is not seen at this time. There are surgical clips in the gallbladder fossa consistent with a prior cholecystectomy. Normal spleen. Normal pancreas. Normal bilateral adrenal glands. Normal right kidney. Normal left kidney. Normal visualized stomach. Normal small intestine. Normal colon. The appendix is visualized and appears normal. Normal abdominal aorta. Normal inferior vena cava. Normal retroperitoneum. Normal urinary bladder. There is absence of the uterus consistent with a prior hysterectomy. Stable small benign appearing inguinal lymph nodes. Stable small bilateral pelvic lymph nodes. Normal abdominal wall. There are degenerative changes of the visualized lumbar spine. CT/Abdomen/Pelvis WITH Contrast IMPRESSION: Stable examination. Electronically Signed: Ming Roberts MD at 15:22 EDT , Service support ,
[2020-11-22 14:16] LABS: CREATININE FINGERSTICK 1.1 mg/dL (0.55-1.02)
== END ==
PROVIDERS: PCP Internal Medicine; Referring Provider Internal Medicine Hematology & Oncology; Visit Provider Internal Medicine Hematology & Oncology
DX: Z01.812 Encounter for preprocedural laboratory examination (principal); C7A.8 Other malignant neuroendocrine tumors
CPT/HCPCS: 74177; Q9967

== ENCOUNTER 2020-12-10 18:29 | Inpatient (IN) | payer MEDICARE, MEDICAID, SELFPAY ==
[2020-12-10] VITALS (15 sets, daily range): BP systolic 113–127; BP diastolic 55–90; PULSE 71–91; RESP 11–25; TEMP 36.5–36.9; O2SAT 88–99; BMI 39.5; BMI 38.2
--- NOTE | 2020-12-10 18:33 | EKG12_ITS ---
Test Reason : Blood Pressure : / mmHG Vent. Rate : 081 BPM Atrial Rate : 081 BPM P-R Int : 166 ms QRS Dur : 088 ms QT Int : 400 ms P-R-T Axes : 066 072 059 degrees QTc Int : 464 ms Normal sinus rhythm Nonspecific ST abnormality Abnormal ECG Confirmed by AIDEN GAUTAM, LEELEE ([id number]), art editor OTIS RUIZ ([id number]) on 12/12/2020 1:23:47 PM Referred By: DENIS Confirmed By:LEELEE WOLFE MD
--- NOTE | 2020-12-10 18:47 | EDS_ITS ---
HPI History of Present Illness Chief Complaint: Overdose Detail of Chief Complaint: Found unresponsive and received 8 mg of Narcan prehospital Informant: patient and EMS Onset/Context/Timing Quality: Patient not forthcoming with information Location: Found that residents Mechanism/Context: Yes other Current Severity: Moderate Maximum Severity: Severe Worsened by: Presumed opiate overdose and aspiration Relieved by: Narcan and oxygen Associated Symptoms Associated Symptoms: other Length of loss of consciousness: Unknown Narrative Narrative: Patient is well-known to the nursing staff. She has history of overdose. She is not forthcoming with information. Upon arrival patient appears cyanotic. She has slow mentation. She is hypoxic. She only complains of shortness of breath. She endorses history coronary disease, COPD, hypertension, breast reduction. Prior records were reviewed. Prior similar symptoms: Yes Recent Illness/Hospitalization: No PFSH [facility], LATER [facility] Medical History Abdominal pain Anemia Anxiety and depression Anxiety and depression Anxiety and depression Atherosclerotic heart disease of [place] coronary artery without angina pectoris Bone fracture Chronic lower back pain Chronic pain syndrome COPD (chronic obstructive pulmonary disease) Diarrhea Essential (primary) hypertension Familial combined hyperlipidemia Gabapentin overdose GERD (gastroesophageal reflux disease) GERD (gastroesophageal reflux disease) Heart murmur History of anxiety disorder History of pneumonia Hyperlipidemia Hypoglycemia Hypokalemia Hypothyroidism Hypothyroidism Intermittent palpitations Intractable vomiting Low back strain Monomorphic ventricular tachycardia Neuroendocrine neoplasm of stomach Neuropathy Neuropathy Obesity Obstructive sleep apnea ELOY (obstructive sleep apnea) ELOY (obstructive sleep apnea) Osteoarthritis Polycythemia Primary malignant neuroendocrine tumor of stomach PTSD (post-traumatic stress disorder) PTSD (post-traumatic stress disorder) Sacral contusion Sick sinus syndrome Sinus pause Tobacco dependence syndrome Vitamin D deficiency Home Medications buspirone 5 mg tablet 5 mg PO TID #90 tab 02/03/19 [Rx Last Taken 10/23/19] lorazepam 1 mg PO TID PRN PRN 06/30/19 [History Last Taken 10/23/19 21:30] zolpidem 10 mg PO QHS 06/30/19 [History Last Taken 10/22/19] haloperidol 0.5 mg tablet 0.5 mg PO Q6H PRN tab 01/07/20 [History Last Taken Unknown] potassium chloride 20 mEq tablet,extended release(part/cryst) 20 meq PO DAILY #90 tab 01/08/20 [Rx Last Taken Unknown] promethazine 25 mg tablet 25 mg PO Q6H PRN PRN #30 tab 01/27/20 [Rx Last Taken Unknown] tramadol 50 mg tablet 50 mg PO Q8H PRN 02/25/20 [History Last Taken Unknown] levothyroxine 25 mcg tablet 25 mcg PO DAILY #90 tab 03/21/20 [Rx Last Taken Unknown] omeprazole 40 mg capsule,delayed release 40 mg PO DAILY #90 cap 04/22/20 [Rx Last Taken Unknown] duloxetine 60 mg capsule,delayed release 60 mg PO BID 05/26/20 [History Last Taken Unknown] diclofenac sodium 1 % topical gel 4 g TOPICAL ONCE PRN #100 g MDD 32g/day total 08/05/20 [Rx Last Taken Unknown] rosuvastatin 10 mg tablet 10 mg PO DAILY #90 tab 08/11/20 [Rx Last Taken Unkno wn] methocarbamol 750 mg tablet 750 mg PO BID PRN #180 tab 09/16/20 [Rx Last Taken Unknown] metoprolol tartrate 100 mg tablet 100 mg PO BID #180 tab 09/23/20 [Rx Last Taken Unknown] isosorbide mononitrate 30 mg tablet,extended release 24 hr 30 mg PO QAM #30 tab 10/17/20 [Rx Last Taken Unknown] lisinopril 40 mg tablet 40 mg PO DAILY #90 tab 11/24/20 [Rx Last Taken Unknown] amlodipine 5 mg tablet 5 mg PO DAILY #90 tablet 11/29/20 [Rx Last Taken Unknown] Allergy/AdvReac Type Severity Reaction Status Date / Time latex Allergy Intermediate skin Verified 12/10/20 18:41 irritation aspirin AdvReac Severe Nausea/Vom/ Verified 12/10/20 18:41 Diarrhea erythromycin base AdvReac Severe Vomiting,di Verified 12/10/20 18:41 [Erythromycin Base] arrhea NSAIDS (Non-Steroidal AdvReac Severe Vomiting,di Verified 12/10/20 18:41 Anti-Inflamma arrhea Family History Daughter Multiple sclerosis Father CAD (coronary artery disease) Heart disease Multiple sclerosis Grandfather Heart disease Uncle Heart disease Aunt No problems noted. Sister Colon cancer Mother Hypertension Surgical History history excision neuroendocrine tumor History of appendectomy History of back surgery History of colonoscopy History of elbow surgery History of hysterectomy History of laparotomy History of left heart catheterization (12/11/19) History of resection of stomach Hx of cholecystectomy Presence of permanent cardiac pacemaker (2013) Social History Smoking Status: Current every day smoker tobacco type: cigarettes Tobacco: How many years used: 30 second hand exposure: Yes alcohol intake: never substance use type: does not use what type of physical activity do you participate in: none ivania/shinto: None seatbelt use: always do you feel safe at home: Yes ROS ROS ED Review of Systems ROS Unobtainable: due to mental status and other Details: Patient acknowledges shortness of breath she denies everything else and is not forthcoming with information. EXAM Physical Exam Const Vital Signs: 12/10/20 18:30 12/10/20 18:38 12/10/20 18:44 Temperature 98.1 F 98.4 F Temperature Source Temporal Temporal Pulse Rate 91 87 Respiratory Rate 23 H 25 H Blood Pressure 116/81 H 116/81 H Blood Pressure Mean 92 92 Pulse Ox 88 92 93 Oxygen Delivery Method Nasal Cannula Nasal Cannula Venturi Mask Oxygen Flow Rate (L/min) 6 6 Fraction of Inspired Oxygen (FIO2) 50 12/10/20 19:28 12/10/20 19:37 12/10/20 19:53 Temperature 97.8 F 98.1 F Temperature Source Temporal Temporal Pulse Rate 83 80 78 Respiratory Rate 18 15 16 Blood Pressure 113/55 L 122/88 H Blood Pressure Mean 74 99 Pulse Ox 93 94 Oxygen Delivery Method Non-Rebreather Non-Rebreather Oxygen Flow Rate (L/min) 15 15 Fraction of Inspired Oxygen (FIO2) Positive well nourished, well developed and obese General Appearance ED: well developed and other Patient signed. She is tachypneic. She is hypoxic. Slow mentation. Nutritional Appearance: obese HEENT HEENT Narrative: Nares patent. Mucosa is moist. normocephalic, atraumatic and cyanosis of lips/distal nose Tympanic Membrane ED: Yes TM abnormal Tympanic Membrane: TM abnormal Eyes PERRL and EOMs intact bilaterally Eyes Narrative: Chemosis bilaterally General Eye ED: Negative for pale conjunctiva or scleral icterus Neck full ROM, no lymphadenopathy and supple Resp Resp Narrative: Patient with mild respiratory distress. Rales heard throughout. This raises question for neurogenic pulmonary edema versus aspiration since paramedics state that she vomited prior to arrival. Cardio regular rate, regular rhythm, S1 normal heart sound, S2 normal heart sound and no murmurs Palpation: normal PMI GI non-tender and non-distended Auscultation: normoactive bowel sounds Palpation: soft Back/Spine no CVA tenderness General Back: Negative for tenderness Neuro oriented x3 and CN's II-XII intact bilaterally Sensorium / Orientation: Negative for alert Motor Exam: strength 5/5 throughout Psych Negative for mental status grossly normal Skin General Skin Exam: jaundice Lesions: no lesions Rashes: no rashes MDM MDM MDM Narrative Medical decision making narrative: 8 L patient's pulse ox 90%. Respiratory was directed to placed on Venturi mask. They are unable to get ABG. I will perform ABG. Concern patient may have neurogenic pulmonary edema versus aspiration pneumonitis. Suspect opiate overdose. Work-up was undertaken. She will require admission to the hospital. Respiratory was not able to obtain ABG. Left femoral artery was cannulated for blood work and ABG by me. Lab Data Labs: Laboratory Results - last 24 hr 12/10/20 12/10/20 12/10/20 18:40 18:40 18:55 WBC 17.4 H RBC 4.79 Hgb 14.3 Hct 44.6 MCV 93.1 MCH 29.9 MCHC 32.1 RDW Std Deviation 52.4 H RDW Coeff of Ross 15.2 H Plt Count 257 MPV 9.2 Immature Gran % (Auto) 0.600 Neut % (Auto) 89.2 H Lymph % (Auto) 7.5 L [place] % (Auto) 2.4 Eos % (Auto) 0.1 Baso % (Auto) 0.2 Absolute Neuts (auto) 15.5 H Absolute Lymphs (auto) 1.30 Nucleated RBC % 0.1 Sodium 138 Potassium 4.4 Chloride 104 Carbon Dioxide 24.0 Anion Gap 10 BUN 14 Creatinine 1.36 H Estim Creat Clear Calc 35.27 Est GFR (MDRD) Af Amer 52 L Est GFR (MDRD) Non-Af 43 L BUN/Creatinine Ratio 10.3 Glucose 173 H Lactic Acid Calcium 8.7 Total Bilirubin 0.20 AST 430 H ALT 432 H Alkaline Phosphatase 239 H Total Protein 7.3 Albumin 2.9 L Globulin 4.4 H Albumin/Globulin Ratio 0.7 L Urine Color Yellow Urine Clarity Sl. Cloudy Urine pH 5.0 Ur Specific [place] 1.020 Urine Protein 30 H Urine Glucose (UA) Normal Urine Ketones 5 H Urine Occult Blood 10 H Urine Nitrite Negative Urine Bilirubin Negative Urine Urobilinogen 1 H Ur Leukocyte Esterase Negative Urine RBC 0-5 SEEN Urine WBC 0 SEEN Ur Squamous Epith Cells 0-5 SEEN Urine Bacteria 0 SEEN Urine Mucus 0 SEEN Urine Opiates Screen Urine Methadone Screen Ur Barbiturates Screen Ur Phencyclidine Scrn Ur Amphetamines Screen U Methamphetamin-MDMA U Benzodiazepines Scrn Urine Cocaine Screen U Cannabinoids Screen Ur Drug Screen Comment 12/10/20 12/10/20 18:55 19:00 WBC RBC Hgb Hct MCV MCH MCHC RDW Std Deviation RDW Coeff of [place] Plt Count MPV Immature Gran % (Auto) Neut % (Auto) Lymph % (Auto) [place] % (Auto) Eos % (Auto) Baso % (Auto) Absolute Neuts (auto) Absolute Lymphs (auto) Nucleated RBC % Sodium Potassium Chloride Carbon Dioxide Anion Gap BUN Creatinine Estim Creat Clear Calc Est GFR (MDRD) Af Amer Est GFR (MDRD) Non-Af BUN/Creatinine Ratio Glucose Lactic Acid 2.7 H* Calcium Total Bilirubin AST ALT Alkaline Phosphatase Total Protein Albumin Globulin Albumin/Globulin Ratio Urine Color Urine Clarity Urine pH Ur Specific [place] Urine Protein Urine Glucose (UA) Urine Ketones Urine Occult Blood Urine Nitrite Urine Bilirubin Urine Urobilinogen Ur Leukocyte Esterase Urine RBC Urine WBC Ur Squamous Epith Cells Urine Bacteria Urine Mucus Urine Opiates Screen POSITIVE H Urine Methadone Screen NEGATIVE Ur Barbiturates Screen NEGATIVE Ur Phencyclidine Scrn POSITIVE H Ur Amphetamines Screen NEGATIVE U Methamphetamin-MDMA NEGATIVE U Benzodiazepines Scrn NEGATIVE Urine Cocaine Screen NEGATIVE U Cannabinoids Screen NEGATIVE Ur Drug Screen Comment ABG Data ABG results: ABG 12/10/20 19:08 Specimen Type ART Sample Site R Fem pH 7.32 L Bicarbonate Actual 23.6 Total CO2 25 Base Excess -2 O2 Saturation 84 L O2 % 50 ABG pCO2 45.5 H ABG pO2 52 L Singh Test N/A O2 Delivery Device Venti Mask Radiography Chest X-Ray - ED: 1 View (X-ray interpreted by me at 1925. Patient has significant infiltrate in the right consistent with aspiration. NG is in proper position.) EKG Initial EKG: Attestation: I personally reviewed and interpreted this EKG as follows: Interpretation: Sinus Rhythm (Sinus rhythm with ventricular rate of 81. OR interval 206 6 ms. Duration is 88 ms. QT durations 400 ms. [place] is normal. There is artifact that the computer is reading as an ossific ST-T wave changes.) Critical Care Time Critical Care Time: Yes Critical care time (excluding procedures): 30-74 minutes (42 minutes), Including time spent: (History, physical, documentation, interpretation of laboratory results, initiation of therapy), Discussing w/Patient &/or Family/Health And Wellness Director, Discussing w/Consultants and Arranging Admission or Transfer Discharge Plan Dx/Rx/DC Orders Clinical Impression: Acute respiratory failure with hypoxia, Aspiration pneumonitis, Severe sepsis with acute organ dysfunction, Elevated transaminase level, ARMANI (acute kidney injury), Opiate or related narcotic overdose, Phencyclidine (PCP) intoxication with complication, Acute bronchospasm Disposition Disposition: Acute Care [facility]
[2020-12-10 18:59] LABS: Bacteria 0 SEEN /hpf (None Seen); Mucous, Urine 0 SEEN /hpf (<or=2+); White Blood Cells 0 SEEN /hpf (0-5)
[2020-12-10 19:00] LABS: Absolute Neutrophil Count 15.5 X10^3/uL (2.0-7.7); Basophil# 0.04 X10^3/uL; Basophil% 0.2 % (0-1); Eosinophil# 0.02 X10^3/uL; Eosinophils% 0.1 % (0-5); Hematocrit 44.6 % (37-47); Hemoglobin 14.3 g/dL (12.0-15.0); Lymphocyte % 7.5 % (19-41); Mean Corp Hgb Conc 32.1 g/dL (32-36); Mean Corpuscular Hgb 29.9 pg (27.0-32.0); Mean Corpuscular Volume 93.1 fL (81-99); Mean Platelet Vol. 9.2 fl (6.2-12.0); Monocyte# 0.41 X10^3/uL; Monocyte% 2.4 % (0-10); NRBC Flagged by Analyzer 0.1 % (0-5); Neutrophil # 15.49 X10^3/uL (2.7-7.7); Neutrophil % 89.2 % (47-70); Platelet Count 257 K/mm3 (150-450); RBC Distribution Width CV 15.2 % (11.6-14.6); RBC Distribution Width SD 52.4 fl (35.1-43.9); Red Blood Count 4.79 M/mm3 (4.2-5.4); White Blood Count 17.4 K/mm3 (4.4-11.0)
[2020-12-10 19:06] LABS: Color, Urine Yellow (Yellow); Glucose, Dipstick Normal (Normal); Ketone-Dipstick 5 mg/dl (Negative); Leukocyte Esterase-Dipstick Negative /ul (Negative); Nitrite-Dipstick Negative (Negative); Occult Blood-Urine 10 /ul (Negative); Protein-Dipstick 30 mg/dl (Negative); Urine Bilirubin Dipstick Negative (Negative); Urine Clarity Sl. Cloudy (Clear); Urine Urobilinogen 1 mg/dl (Normal)
[2020-12-10] MEDS: Ondansetron 4 MG/2 ML Vial IV (19:12)
[2020-12-10 19:16] LABS: Base Excess -2 mmol/L (-2 to +2); Bicarbonate 23.6 mmol/L (22-26); Blood Gas Specimen Type ART; FI02 50; O2 Delivery Device Venti Mask; PO2 52 mmHG (75-100); SITE R Fem; SO2 84 % (95-99); Total Carbon Dioxide 25 mmol/L; pCO2 45.5 mmHg (35-45); pH 7.32 (7.35-7.45)
[2020-12-10 19:16] LABS: ALB/GLOB Ratio 0.7 RATIO (0.9-2.4); AST(SGOT) 430 U/L (15-37); Alanine Aminotransfer ALT/SGPT 432 U/L (13-56); Albumin, Serum 2.9 g/dL (3.2-5.0); Alkaline Phosphatase 239 U/L (45-117); Anion Gap 10 (5-15); BUN 14 mg/dL (7-18); BUN/Creat Ratio 10.3 RATIO (10-20); Calcium,Total 8.7 mg/dL (8.5-10.1); Chloride 104 mmol/L (98-107); Creatinine, Serum 1.36 mg/dL (0.55-1.02); EST Glomerular Filtration Rate 43 mL/min (>60); Est Glom Filt Rate - Afr Amer 52 mL/min (>60); Estimated Creatinine Clearance 35.27 ml/min; Globulin 4.4 g/dL (2.2-4.2); Glucose 173 mg/dL (74-106); Potassium 4.4 mmol/L (3.5-5.1); Protein, Total 7.3 g/dL (6.4-8.2); Sodium Level 138 mmol/L (136-145)
--- NOTE | 2020-12-10 19:20 | RAD_ITS ---
STUDY: X-RAY CHEST REASON FOR EXAM: Female, 55 years old. Bilateral rales and respiratory failure TECHNIQUE: Frontal portable view of the chest COMPARISON: 21 Jul 2020 FINDINGS: There is lobar right perihilar opacity. Left lung is relatively clear. Inspiratory volumes are low. Heart is mildly enlarged, possibly due to projection. Pacemaker is present in the left upper chest with leads terminating in the right atrium and right ventricle. There is no pneumothorax or pleural effusions or pulmonary edema. Gastric tube courses into the proximal fundus. RAD/Chest 1 View (Portable) IMPRESSION: Right lung pneumonia, probably bacterial. Mild cardiomegaly, no pulmonary edema. Electronically Signed: Suyapa Dutta MD at 20:41 EDT Tel , Service support ,
[2020-12-10 19:28] LABS: Red Blood Cells-Urine 0-5 SEEN /hpf (0-5); Squamous Epithelial Cells - UA 0-5 SEEN /hpf (5-10)
[2020-12-10 19:38] LABS: Amphetamine Urine VISTA NEGATIVE (<1000 ng/mL); Barbiturate Urine VISTA NEGATIVE (< 200 ng/mL); Benzodiazepine Urine VISTA NEGATIVE (< 200 ng/mL); Cocaine Urine VISTA NEGATIVE (< 300 ng/mL); Ecstacy Urine VISTA NEGATIVE (< 500 ng/mL); Methadone Urine VISTA NEGATIVE (< 300 ng/mL); PCP Urine VISTA POSITIVE (< 25 ng/mL); THC Urine VISTA NEGATIVE (< 50 ng/mL); Vista UDS pH Range 5
[2020-12-10 19:42] LABS: Lactic Acid 2.7 mmol/L (0.4-1.9)
--- NOTE | 2020-12-10 19:59 | NURSING ---
Dr Daniels aware but due to vs and hemodynamically stable, we are not doing fluids.
--- NOTE | 2020-12-10 20:20 | HP.PCM.HOS_ITS ---
HPI - General General Date of Admission: 12/10/20 Date of Service: 12/10/20 Chief Complaint: Unresponsiveness HPI Narrative RAMSES BRADSHAW, is a 55 F with a significant history of COPD; and overdose who presents to the emergent department because of unresponsiveness. Reportedly her roommate called because patient was unresponsive. Reportedly patient was given 8 mg of Narcan before she came to the hospital. Although she admit that she overdose she insists that she is only took 1 pill of a morphine. Emergent department doctor reported patient was wheezing and had tachypnea. Patient was given a breathing treatment at the emergency department. Also patient was placed on nonrebreather mask because of hypoxia. At the emergent department patient was vomiting and NG tube was placed. [facility] Medical History Abdominal pain Anemia Anxiety and depression Anxiety and depression Anxiety and depression Atherosclerotic heart disease of [place] coronary artery without angina pectoris Bone fracture Chronic lower back pain Chronic pain syndrome COPD (chronic obstructive pulmonary disease) Diarrhea Essential (primary) hypertension Familial combined hyperlipidemia Gabapentin overdose GERD (gastroesophageal reflux disease) GERD (gastroesophageal reflux disease) Heart murmur History of anxiety disorder History of pneumonia Hyperlipidemia Hypoglycemia Hypokalemia Hypothyroidism Hypothyroidism Intermittent palpitations Intractable vomiting Low back strain Monomorphic ventricular tachycardia Neuroendocrine neoplasm of stomach Neuropathy Neuropathy Obesity Obstructive sleep apnea ELOY (obstructive sleep apnea) ELOY (obstructive sleep apnea) Osteoarthritis Polycythemia Primary malignant neuroendocrine tumor of stomach PTSD (post-traumatic stress disorder) PTSD (post-traumatic stress disorder) Sacral contusion Sick sinus syndrome Sinus pause Tobacco dependence syndrome Vitamin D deficiency Home Medications buspirone 5 mg tablet 5 mg PO TID #90 tab 02/03/19 [Rx Last Taken 10/23/19] lorazepam 1 mg PO TID PRN PRN 06/30/19 [History Last Taken 10/23/19 21:30] zolpidem 10 mg PO QHS 06/30/19 [History Last Taken 10/22/19] haloperidol 0.5 mg tablet 0.5 mg PO Q6H PRN tab 01/07/20 [History Last Taken Unknown] potassium chloride 20 mEq tablet,extended release(part/cryst) 20 meq PO DAILY #90 tab 01/08/20 [Rx Last Taken Unknown] promethazine 25 mg tablet 25 mg PO Q6H PRN PRN #30 tab 01/27/20 [Rx Last Taken Unknown] tramadol 50 mg tablet 50 mg PO Q8H PRN 02/25/20 [History Last Taken Unknown] levothyroxine 25 mcg tablet 25 mcg PO DAILY #90 tab 03/21/20 [Rx Last Taken Unknown] omeprazole 40 mg capsule,delayed release 40 mg PO DAILY #90 cap 04/22/20 [Rx Last Taken Unknown] duloxetine 60 mg capsule,delayed release 60 mg PO BID 05/26/20 [History Last Taken Unknown] diclofenac sodium 1 % topical gel 4 g TOPICAL ONCE PRN #100 g MDD 32g/day total 08/05/20 [Rx Last Taken Unknown] rosuvastatin 10 mg tablet 10 mg PO DAILY #90 tab 08/11/20 [Rx Last Taken Unknown] methocarbamol 750 mg tablet 750 mg PO BID PRN #180 tab 09/16/20 [Rx Last Taken Unknown] metoprolol tartrate 100 mg tablet 100 mg PO BID #180 tab 09/23/20 [Rx Last Taken Unknown] isosorbide mononitrate 30 mg tablet,extended release 24 hr 30 mg PO QAM #30 tab 10/17/20 [Rx Last Taken Unknown] lisinopril 40 mg tablet 40 mg PO DAILY #90 tab 11/24/20 [Rx Last Taken Unknown] amlodipine 5 mg tablet 5 mg PO DAILY #90 tablet 11/29/20 [Rx Last Taken Unknown] Allergy/AdvReac Type Severity Reaction Status Date / Time latex Allergy Intermediate skin Verified 12/10/20 18:41 irritation aspirin AdvReac Severe Nausea/Vom/ Verified 12/10/20 18:41 Diarrhea erythromycin base AdvReac Severe Vomiting,di Verified 12/10/20 18:41 [Erythromycin Base] arrhea NSAIDS (Non-Steroidal AdvReac Severe Vomiting,di Verified 12/10/20 18:41 Anti-Inflamma arrhea Family History Daughter Multiple sclerosis Father CAD (coronary artery disease) Heart disease Multiple sclerosis Grandfather Heart disease Uncle Heart disease Aunt No problems noted. Sister Colon cancer Mother Hypertension Surgical History history excision neuroendocrine tumor History of appendectomy History of back surgery History of colonoscopy History of elbow surgery History of hysterectomy History of laparotomy History of left heart catheterization (12/11/19) History of resection of stomach Hx of cholecystectomy Presence of permanent cardiac pacemaker (2013) Social History Smoking Status: Current every day smoker tobacco type: cigarettes Tobacco: How many years used: 30 second hand exposure: Yes alcohol intake: never substance use type: does not use what type of physical activity do you participate in: none ivania/yazidism: None seatbelt use: always do you feel safe at home: Yes ROS ROS Narrative Constitutional: Denies fever, chills, fatigue, anorexia and change in weight Eyes: Denies blurry vision, change in eye color, change in vision, discharge from eye(s), double vision, erythema, eye pain, loss of vision or other HEENT: Denies abnormal hearing, dysphagia, ear pain, epistaxis, headache(s), hearing loss, nasal congestion, nasal discharge, post nasal drip, sinus pressure, sore throat or other Cardiovascular: Denies chest pain or palpitations. Respiratory/Chest: Has coughing and SOB Gastrointestinal: Has nausea vomiting. Denies abdominal pain; constipation or diarrhea. Genitourinary: Denies burning urination, difficulty urinating, dysuria, hematuria, nocturia, urinary frequency, urinary hesitancy, urinary incontinence, urinary urgency or other Musculoskeletal: Denies arthralgias, back pain, joint pain, joint stiffness, joint swelling, myalgias, neck pain or other Neurologic: Denies abnormal gait, abnormal speech, confusion, disequilibrium, dizziness, focal weakness, headache(s), numbness, paresthesias, seizure-like activity, seizures, syncope, tingling, tremor(s) or other Psychiatric: Denies anxiety, depression, homicidal ideation, suicidal ideation or other Endocrinology: Denies change in body appearance, cold intolerance, excessive sweating, heat intolerance, polydipsia, polyuria or other Hematologic/Lymphatic: Denies anemia, easy bleeding, easy bruising, lymphadenopathy or other Integumentary: Denies rashes Allergic/Immunologic: Denies rhinitis, hives, eczema, or other Vital Signs Vital Signs Vital Signs: 12/10/20 18:30 12/10/20 18:38 12/10/20 18:44 Temperature 98.1 F 98.4 F Temperature Source Temporal Temporal Pulse Rate 91 87 Respiratory Rate 23 H 25 H Blood Pressure 116/81 H 116/81 H Blood Pressure Mean 92 92 Pulse Ox 88 92 93 Oxygen Delivery Method Nasal Cannula Nasal Cannula Venturi Mask Oxygen Flow Rate (L/min) 6 6 Fraction of Inspired Oxygen (FIO2) 50 12/10/20 19:28 12/10/20 19:37 12/10/20 19:53 Temperature 97.8 F 98.1 F Temperature Source Temporal Temporal Pulse Rate 83 80 78 Respiratory Rate 18 15 16 Blood Pressure 113/55 L 122/88 H Blood Pressure Mean 74 99 Pulse Ox 93 94 Oxygen Delivery Method Non-Rebreather Non-Rebreather Oxygen Flow Rate (L/min) 15 15 Fraction of Inspired Oxygen (FIO2) Weight Weight: 94.9 kg Body Mass Index (BMI) 39.5 Physical Exam Narrative Physical exam: General: Well-nourished, well-developed. Head: Normocephalic, atraumatic, no tenderness Eyes: PERRLA, EOMI ENT, no trauma, moist mucous membranes, no rhinorrhea Neck: Nontender, full range of motion, no spinal tenderness, deformities, step- off CVS: Regular rate and rhythm. S1-S2 present. No murmur, gallop or rub. Respiratory : Tachypnea; wheezes. chest wall nontender. Abdomen: NG tube in place. Vomitus on face. Soft, nontender, nondistended, normal bowel sounds, no masses : Deferred Back: Nontender, no CVA tenderness, no midline spinal tenderness, deformities, step-offs Extremities: Nontender full range of motion, no trauma Skin: Normal color, no trauma, abrasions Neuro: Somnolent, oriented, cranial nerves II through XII grossly intact. Psychiatry: Normal mood. Normal affect. Not depressed. Not anxious. Results Lab / Micro Data Result Diagrams: 12/10/20 18:40 12/10/20 18:40 Labs: Laboratory Results - last 24 hr 12/10/20 18:40: WBC 17.4 H, RBC 4.79, Hgb 14.3, Hct 44.6, MCV 93.1, MCH 29.9, MCHC 32.1, RDW Std Deviation 52.4 H, RDW Coeff of Ross 15.2 H, Plt Count 257, MPV 9.2, Immature Gran % (Auto) 0.600, Neut % (Auto) 89.2 H, Lymph % (Auto) 7.5 L, Ogle % (Auto) 2.4, Eos % (Auto) 0.1, Baso % (Auto) 0.2, Absolute Neuts (auto) 15.5 H, Absolute Lymphs (auto) 1.30, Nucleated RBC % 0.1 12/10/20 18:40: Sodium 138, Potassium 4.4, Chloride 104, Carbon Dioxide 24.0, Anion Gap 10, BUN 14, Creatinine 1.36 H, Estim Creat Clear Calc 35.27, Est GFR (MDRD) Af Amer 52 L, Est GFR (MDRD) Non-Af 43 L, BUN/Creatinine Ratio 10.3, Glucose 173 H, Calcium 8.7, Total Bilirubin 0.20, AST 430 H, ALT 432 H, Alkaline Phosphatase 239 H, Total Protein 7.3, Albumin 2.9 L, Globulin 4.4 H, Albumin/Globulin Ratio 0.7 L 12/10/20 18:55: Urine Color Yellow, Urine Clarity Sl. Cloudy, Urine pH 5.0, Ur Specific [place] 1.020, Urine Protein 30 H, Urine Glucose (UA) Normal, Urine Ketones 5 H, Urine Occult Blood 10 H, Urine Nitrite Negative, Urine Bilirubin Negative, Urine Urobilinogen 1 H, Ur Leukocyte Esterase Negative, Urine RBC 0-5 SEEN, Urine WBC 0 SEEN, Ur Squamous Epith Cells 0-5 SEEN, Urine Bacteria 0 SEEN, Urine Mucus 0 SEEN 12/10/20 18:55: Urine Opiates Screen POSITIVE H, Urine Methadone Screen NEGATIVE, Ur Barbiturates Screen NEGATIVE, Ur Phencyclidine Scrn POSITIVE H, Ur Amphetamines Screen NEGATIVE, U Methamphetamin-MDMA NEGATIVE, U Benzodiazepines Scrn NEGATIVE, Urine Cocaine Screen NEGATIVE, U Cannabinoids Screen NEGATIVE, Ur Drug Screen Comment 12/10/20 19:00: Lactic Acid 2.7 H* Micro: Microbiology 12/10/20 18:44 Nasal Secretion SARS-CoV-2 Antigen (Rapid) - Final ABG Data ABG results: ABG 12/10/20 19:08 Specimen Type ART Sample Site R Fem pH 7.32 L Bicarbonate Actual 23.6 Total CO2 25 Base Excess -2 O2 Saturation 84 L O2 % 50 ABG pCO2 45.5 H ABG pO2 52 L Singh Test N/A O2 Delivery Device Venti Mask Assessment & Plan Assessment/Plan (1) Acute respiratory failure with hypoxia: (2) Aspiration pneumonitis: (3) Sepsis: QUALIFIERS: Sepsis type: sepsis due to unspecified organism Sepsis acute organ dysfunction status: with acute organ dysfunction Severe sepsis acute organ dysfunction type: acute respiratory failure Acute respiratory failure type: with hypoxia Severe sepsis shock status: without septic shock Qualified Code(s): A41.9 - Sepsis, unspecified organism; R65.20 - Severe sepsis without septic shock; J96.01 - Acute respiratory failure with hypoxia (4) COPD with acute exacerbation: (5) Tobacco abuse: PLAN: Acute hypoxemic respiratory failure with hypoxia secondary to aspiration pneumonitis/ sepsis Chest x-ray independently interpreted showed opacities in the right middle and lower lung ha[place]on. Patient was given Unasyn and azithromycin at the emergency department. We will continue patient on Unasyn inpatient. Patient met SIRS criteria of white count of 17.4; tachypnea with respiratory rate of more than 20. Required nonrebreather at emergency department. Nonrebreather continued. De-escalate oxygen to maintain oxygen saturation of more than 90%. qSOFA: 2 (encephalopathy, could also be attributed to overdose); respiratory rate more than 20. OG placed on emergency department; continued. Received Zofran at emergency department and continue as needed basis. Admit to intensive care unit. Consult landscape account manager. COPD exacerbation Patient with wheezing at the emergency department received breathing treatment. Breathing treatment continued on scheduled and as needed basis. We will start patient on steroids that should also help with her pneumonitis. Tobacco abuse Consult Nicotine patch Elevated creatinine Creatinine is mildly elevated but within baseline. Trend BMP. DVT prophylaxis: SCD ordered. Charges/Coding Multi Select Codes Visit Charges Visit Charges: 26061 Init Hosp L3
[2020-12-10] MEDS: Albuterol 2.5 MG/3 ML VIAL.NEB. INHALATION ×2 (20:51→20:52)
[2020-12-10] MEDS: Ipratropium/Albuterol Sulfate 3 ML AMPUL.NEB INHALATION (20:51)
[2020-12-10] MEDS: MethylPREDNISolone 125 MG/2 ML Vial IV (22:21)
[2020-12-10] MEDS: 0.9% Saline Lock 10 ML Syringe IV (22:21)
[2020-12-10 23:07] LABS: Reflex Lactate? Y
[2020-12-11] VITALS (19 sets, daily range): BP systolic 109–163; BP diastolic 72–98; PULSE 69–114; RESP 7–18; TEMP 36.2–36.9; O2SAT 91–98
[2020-12-11 00:38] LABS: Lactic Acid 1.4 mmol/L (0.4-1.9)
[2020-12-11 04:37] LABS: Absolute Neutrophil Count 17.7 X10^3/uL (2.0-7.7); Basophil# 0.03 X10^3/uL; Basophil% 0.2 % (0-1); Hematocrit 43.8 % (37-47); Hemoglobin 13.9 g/dL (12.0-15.0); Lymphocyte % 6.2 % (19-41); Mean Corp Hgb Conc 31.7 g/dL (32-36); Mean Corpuscular Hgb 29.6 pg (27.0-32.0); Mean Corpuscular Volume 93.4 fL (81-99); Mean Platelet Vol. 9.1 fl (6.2-12.0); Monocyte# 0.27 X10^3/uL; Monocyte% 1.4 % (0-10); NRBC Flagged by Analyzer 0 % (0-5); Neutrophil # 17.74 X10^3/uL (2.7-7.7); Neutrophil % 91.7 % (47-70); Platelet Count 204 K/mm3 (150-450); RBC Distribution Width CV 15.1 % (11.6-14.6); RBC Distribution Width SD 51.8 fl (35.1-43.9); Red Blood Count 4.69 M/mm3 (4.2-5.4); White Blood Count 19.3 K/mm3 (4.4-11.0)
[2020-12-11 04:57] LABS: Anion Gap 7 (5-15); BUN 14 mg/dL (7-18); Calcium,Total 8.8 mg/dL (8.5-10.1); Chloride 107 mmol/L (98-107); Creatinine, Serum 1.17 mg/dL (0.55-1.02); EST Glomerular Filtration Rate 51 mL/min (>60); Est Glom Filt Rate - Afr Amer 62 mL/min (>60); Glucose 173 mg/dL (74-106); Potassium 4.3 mmol/L (3.5-5.1); Sodium Level 140 mmol/L (136-145)
[2020-12-11] MEDS: Ipratropium/Albuterol Sulfate 3 ML AMPUL.NEB INHALATION ×3 (06:51→14:31)
--- NOTE | 2020-12-11 08:28 | NURSING ---
catheter in place when arrived to unit
--- NOTE | 2020-12-11 09:40 | PN.HOSP_ITS ---
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 She states that she does not inject narcotics and that she found a pill on the floor initially was on the bathroom floor then the kitchen floor then the hallway floor, she did could not answer me whether or not she had a prescription for narcotics and states that she lives alone but then could not tell me who his pill it was but she maintained that it was not hers, she did not answer the question as to why she would take a pill she could identify. She is much more alert today but tearful and anxious. Objective Data Objective Data Vital Signs: Vital Signs Temp Pulse Resp BP Pulse Ox 97.2 F L 101 H 13 144/72 H 93 12/11/20 08:00 12/11/20 08:00 12/11/20 08:00 12/11/20 08:00 12/11/20 08:00 Oxygen Flow Rate (L/min) 3 Oxygen Delivery Method Nasal Cannula Weight: 202 lb 6.15 oz Body Mass Index (BMI) 38.2 Intake & Output: Intake and Output for Last 24 Hours 12/10/20 12/11/20 12/12/20 03:59 03:59 03:59 Intake Total 367 / 367 112 / 112 Output Total 900 / 900 250 / 250 Balance -533 / -533 -138 / -138 Lab / Micro Data Result Diagrams: 12/11/20 04:25 12/11/20 04:25 Labs: Laboratory Results - last 24 hr 12/10/20 18:40: WBC 17.4 H, RBC 4.79, Hgb 14.3, Hct 44.6, MCV 93.1, MCH 29.9, MCHC 32.1, RDW Std Deviation 52.4 H, RDW Coeff of Ross 15.2 H, Plt Count 257, MPV 9.2, Immature Gran % (Auto) 0.600, Neut % (Auto) 89.2 H, Lymph % (Auto) 7.5 L, Petroleum % (Auto) 2.4, Eos % (Auto) 0.1, Baso % (Auto) 0.2, Absolute Neuts (auto) 15.5 H, Absolute Lymphs (auto) 1.30, Nucleated RBC % 0.1 12/10/20 18:40: Sodium 138, Potassium 4.4, Chloride 104, Carbon Dioxide 24.0, Anion Gap 10, BUN 14, Creatinine 1.36 H, Estim Creat Clear Calc 35.27, Est GFR (MDRD) Af Amer 52 L, Est GFR (MDRD) Non-Af 43 L, BUN/Creatinine Ratio 10.3, Glucose 173 H, Calcium 8.7, Total Bilirubin 0.20, AST 430 H, ALT 432 H, Alkaline Phosphatase 239 H, Total Protein 7.3, Albumin 2.9 L, Globulin 4.4 H, Albumin/Globulin Ratio 0.7 L 12/10/20 18:55: Urine Color Yellow, Urine Clarity Sl. Cloudy, Urine pH 5.0, Ur Specific [place] 1.020, Urine Protein 30 H, Urine Glucose (UA) Normal, Urine Ketones 5 H, Urine Occult Blood 10 H, Urine Nitrite Negative, Urine Bilirubin Ne gative, Urine Urobilinogen 1 H, Ur Leukocyte Esterase Negative, Urine RBC 0-5 SEEN, Urine WBC 0 SEEN, Ur Squamous Epith Cells 0-5 SEEN, Urine Bacteria 0 SEEN, Urine Mucus 0 SEEN 12/10/20 18:55: Urine Opiates Screen POSITIVE H, Urine Methadone Screen NEGATIVE, Ur Barbiturates Screen NEGATIVE, Ur Phencyclidine Scrn POSITIVE H, Ur Amphetamines Screen NEGATIVE, U Methamphetamin-MDMA NEGATIVE, U Benzodiazepines Scrn NEGATIVE, Urine Cocaine Screen NEGATIVE, U Cannabinoids Screen NEGATIVE, Ur Drug Screen Comment 12/10/20 19:00: Lactic Acid 2.7 H* 12/10/20 23:40: Lactic Acid 1.4 12/11/20 04:25: WBC 19.3 H, RBC 4.69, Hgb 13.9, Hct 43.8, MCV 93.4, MCH 29.6, MCHC 31.7 L, RDW Std Deviation 51.8 H, RDW Coeff of Ross 15.1 H, Plt Count 204, MPV 9.1, Immature Gran % (Auto) 0.500, Neut % (Auto) 91.7 H, Lymph % (Auto) 6.2 L, Petroleum % (Auto) 1.4, Eos % (Auto) 0.0, Baso % (Auto) 0.2, Absolute Neuts (auto) 17.7 H, Absolute Lymphs (auto) 1.20, Nucleated RBC % 0 12/11/20 04:25: Sodium 140, Potassium 4.3, Chloride 107, Carbon Dioxide 26.0, Anion Gap 7, BUN 14, Creatinine 1.17 H, Estim Creat Clear Calc 41.00, Est GFR (MDRD) Af Amer 62, Est GFR (MDRD) Non-Af 51 L, BUN/Creatinine Ratio 12.0, Glucose 173 H, Calcium 8.8 Micro: Microbiology 12/10/20 18:44 Nasal Secretion SARS-CoV-2 Antigen (Rapid) - Final ABG Data ABG results: ABG 12/10/20 19:08 Specimen Type ART Sample Site R Fem pH 7.32 L Bicarbonate Actual 23.6 Total CO2 25 Base Excess -2 O2 Saturation 84 L O2 % 50 ABG pCO2 45.5 H ABG pO2 52 L Singh Test N/A O2 Delivery Device Venti Mask Radiography Diagnostic Testing: Radiology Impression Chest X-Ray 12/10/20 19:20 IMPRESSION: Right lung pneumonia, probably bacterial. Mild cardiomegaly, no pulmonary edema. Electronically Signed: Suyapa Dutta MD at 20:41 EDT Tel , Service support , Physical Exam Const alert, oriented x3 and no apparent distress General Appearance: cooperative HEENT normocephalic and moist oral mucous membranes Eyes PERRL, EOMs intact bilaterally and conjunctivae normal Neck supple and no JVD Resp normal respiratory effort, no retractions, no use of accessory muscles and clear to auscultation bilaterally Auscultation: wheezes; Negative for crackles, rales or rhonchi Cardio regular rate, regular rhythm, S1 normal heart sound, S2 normal heart sound and no murmurs GI soft to palpation, non-tender and non-distended; Negative for hepatosplenomegaly Extremity no clubbing, cyanosis or edema Skin no rashes or lesions noted Neuro no focal motor deficits and no sensory deficits noted Psych affect normal Appearance: appropriate Assessment & Plan Assessment/Plan (1) Acute respiratory failure with hypoxia: (2) Aspiration pneumonitis: (3) Sepsis: QUALIFIERS: Sepsis type: sepsis due to unspecified organism Sepsis acute organ dysfunction status: with acute organ dysfunction Severe sepsis acute organ dysfunction type: acute respiratory failure Acute respiratory failure type: with hypoxia Severe sepsis shock status: without septic shock Qualified Code(s): A41.9 - Sepsis, unspecified organism; R65.20 - Severe sepsis without septic shock; J96.01 - Acute respiratory failure with hypoxia (4) COPD with acute exacerbation: (5) Tobacco abuse: PLAN: 1. Acute hypoxic respiratory failure secondary to aspiration pneumonitis/COPD with possible exacerbation/tobacco abuse/elevated LFTs -No sepsis to many confounders to explain other vital sign derangements -Continue with Unasyn secondary to episodes of emesis while minimally responsive -Difficult to ascertain whether or not she is an addict, she denies this vehemently -Continue with steroids, oxygen, antibiotics -No need for communication analyst at this time -Counseled hold on cessation, continue nicotine patch -Unsure as to the cause, will trend and if they do not decline fairly rapidly we will need to investigate further 2. Mood disorder with anxiety -Based on her medication review, she is on Cymbalta as well as Haldol and Ativan, and BuSpar -UA was positive for opiates which she denies that she takes on a regular basis but cannot answer as to why she had an opiate on the floor in her house let alone while she would take a pill she can identify -We will restart her home antipsychotics as well as her Cymbalta and Ativan and see if we can get her a little bit under control and she will likely need to be evaluated by psych for possible placement, though she does deny that this was a suicidal attempt and that it was an accidental overdose 3. Sick sinus syndrome/HTN -We will continue to monitor, specially her heart rate given the fact that it gets high or low based on her sick sinus syndrome, she does have a pacemaker in place -We will restart metoprolol, Imdur and Norvasc when she can take p.o. 4. Hypothyroidism -Stable -Continue Synthroid 5. GERD -Stable -Continue with PPI DVT: SCDs Charges/Coding Visit Charges Inpatient E&M: 21873 Subs Hosp L2
[2020-12-11] MEDS: Enoxaparin 40 MG/0.4 ML Syringe SC (10:07)
[2020-12-11] MEDS: 0.9% Saline Lock 10 ML Syringe IV (10:08)
[2020-12-11] MEDS: amLODIPine 5 MG Tablet PO (11:41)
[2020-12-11] MEDS: DULoxetine Hcl 60 MG Capsule PO ×2 (11:41→20:33)
[2020-12-11] MEDS: busPIRone 5 MG Tablet PO ×2 (13:31→20:33)
[2020-12-11] MEDS: LORazepam 1 MG Tablet PO ×2 (13:31→20:33)
--- NOTE | 2020-12-11 14:36 | CPS ---
Patient stopped T[place] detention through due to headache
[2020-12-11] MEDS: Haloperidol 1 MG Tablet 0.5 MG PO (18:17)
[2020-12-11] MEDS: LORazepam 2 MG/ML Syringe IM (19:18)
[2020-12-11] MEDS: DiphenhydrAMINE 50 MG/ML Syringe IM (19:19)
[2020-12-11] MEDS: Haloperidol Lactate 5 MG/ML Vial 2 MG IM (19:19)
--- NOTE | 2020-12-11 20:14 | PCM.PN.BLA ---
Progress Note Informed of patient being very anxious, paranoid, belligerent to staff. Insisting on leaving AMA. When the nurse called her daughter on file, daughter said the patient has history of doing similar things. She believed that this episode of overdose was suicidal. Patient will be pink slipped, given IM Haldol, Benadryl and Ativan Crisis needs to be consulted in a.m. to evaluate patient further Will need inpatient psychiatric admission [place] slip filled
--- NOTE | 2020-12-11 20:18 | NURSING ---
Pt is out in the hallway and yelling intermittently. Very paranoid. Wanted the interactive media project manager called so I called security and they are currently on the floor talking to pt. Pt has blood on her gown but will not allow us to change it at this time.
[2020-12-11] MEDS: Atorvastatin Calcium 20 MG Tablet PO (20:33)
--- NOTE | 2020-12-11 21:49 | NURSING ---
Pt's bathroom light was going off. When I went into room I found pt missing. When I went looking for her I found her underneath counter in visitor waiting area. Escorted her back to her room.
--- NOTE | 2020-12-12 00:27 | PCM.PN.BLA ---
Progress Note Notified by nurse that patient has pulled her IV. Will switch IV meds to p.o. Solu-Medrol changed to prednisone. Unasyn changed to clindamycin. Patient originally admitted for overdose and likely aspiration pneumonitis versus aspiration pneumonia. Further steroids and antibiotic management by rounding attending.
[2020-12-12] MEDS: Ondansetron ODT 4 MG Tablet PO (00:31)
[2020-12-12] MEDS: Haloperidol 1 MG Tablet 0.5 MG PO ×2 (00:31→17:49)
[2020-12-12 02:45] VITALS: BP 157/103; PULSE 111; RESP 18; TEMP 36.7; O2SAT 97
[2020-12-12] MEDS: LORazepam 1 MG Tablet PO ×2 (05:30→13:00)
[2020-12-12] MEDS: busPIRone 5 MG Tablet PO ×2 (05:30→11:33)
[2020-12-12] MEDS: Levothyroxine 25 MCG TABLET PO (05:30)
[2020-12-12 05:58] LABS: Absolute Lymphocyte Count 1.58 X10^3/uL (0.83-4.51); Absolute Neutrophil Count 19.3 X10^3/uL (2.0-7.7); Basophil# 0.03 X10^3/uL; Basophil% 0.1 % (0-1); Hematocrit 40.4 % (37-47); Hemoglobin 13.3 g/dL (12.0-15.0); Lymphocyte # 1.58 X10^3/ul (0.83-4.51); Mean Corp Hgb Conc 32.9 g/dL (32-36); Mean Corpuscular Hgb 29.5 pg (27.0-32.0); Mean Corpuscular Volume 89.6 fL (81-99); Mean Platelet Vol. 9.5 fl (6.2-12.0); Monocyte# 1.25 X10^3/uL; Monocyte% 5.6 % (0-10); NRBC Flagged by Analyzer 0 % (0-5); Neutrophil # 19.27 X10^3/uL (2.7-7.7); Platelet Count 237 K/mm3 (150-450); RBC Distribution Width CV 15.5 % (11.6-14.6); RBC Distribution Width SD 50.9 fl (35.1-43.9); Red Blood Count 4.51 M/mm3 (4.2-5.4); White Blood Count 22.4 K/mm3 (4.4-11.0)
[2020-12-12 06:33] LABS: ALB/GLOB Ratio 0.7 RATIO (0.9-2.4); AST(SGOT) 149 U/L (15-37); Alanine Aminotransfer ALT/SGPT 199 U/L (13-56); Albumin, Serum 3.1 g/dL (3.2-5.0); Alkaline Phosphatase 158 U/L (45-117); Anion Gap 7 (5-15); BUN 15 mg/dL (7-18); BUN/Creat Ratio 21.4 RATIO (10-20); Chloride 108 mmol/L (98-107); EST Glomerular Filtration Rate 92 mL/min (>60); Est Glom Filt Rate - Afr Amer 111 mL/min (>60); Estimated Creatinine Clearance 68.52 ml/min; Globulin 4.5 g/dL (2.2-4.2); Glucose 132 mg/dL (74-106); Potassium 3.6 mmol/L (3.5-5.1); Protein, Total 7.6 g/dL (6.4-8.2); Sodium Level 143 mmol/L (136-145)
[2020-12-12 07:43] VITALS: PULSE 106; RESP 18
[2020-12-12] MEDS: Ipratropium/Albuterol Sulfate 3 ML AMPUL.NEB INHALATION (07:43)
--- NOTE | 2020-12-12 07:43 | NURSING ---
female phoned in, states she is [facility] from [facility], states she is offgoing at 0800 but another staff member will be taking over, update provided including Sandy Branham states she will relay information to oncoming staff member.
--- NOTE | 2020-12-12 07:45 | CPS ---
Pt handed aerosol back to this R.T. after it ran for 2 minutes. she said she was done.
[2020-12-12 07:48] VITALS: O2SAT 92
[2020-12-12 07:54] VITALS: BP 149/82; PULSE 110; RESP 20; TEMP 36.6; O2SAT 94
--- NOTE | 2020-12-12 07:58 | NURSING ---
pt refuses all/any medications that are due this am.
[2020-12-12] MEDS: Clindamycin HCl 150 MG Capsule 300 MG PO (11:33)
[2020-12-12] MEDS: amLODIPine 5 MG Tablet PO (11:33)
[2020-12-12] MEDS: DULoxetine Hcl 60 MG Capsule PO (11:33)
[2020-12-12] MEDS: predniSONE 20 MG Tablet 40 MG PO ×2 (11:34→17:49)
--- NOTE | 2020-12-12 16:29 | NURSING ---
pt noted to be attempting to leave through main doors of unit. attempted verbal desculation and redirected back to her room by this nurse, ANIMAL HUSBANDRY MANAGER, and primary RN. Security called.
--- NOTE | 2020-12-12 16:31 | NURSING ---
despite verbal de esculation techniques patient continued to refuse to go back to her room and was pulling at electrical cords off the front door. Pt did pull apart a black box off an electrical cord. Garret bradford called and physician notified. Physician notified gas jockey was on the phone with [facility] prior to this event and per [facility] requesting Covid test for today, have bed placement.
--- NOTE | 2020-12-12 16:45 | NURSING ---
pt was standing at locked unit doors with her purse, argumentative and yelling at staff, states she is leaving. pt causes physical damage to black cording on both sides of doorway and continues to be uncooperative, CODE MEGHAN initiated. pt agrees to go back to room with information security director present, HRO and team also arrive. pt remains in her room and is updated on progress of POC.
--- NOTE | 2020-12-12 16:50 | NURSING ---
received information from [facility] for dual diagnosis unit phone number [phone] for nurse to nurse report once COVID test results are back.
--- NOTE | 2020-12-12 16:55 | NURSING ---
spoke with Yanely at Crisis and updated, transfered phone call into pt room for pt to speak with Crisis per pt request.
--- NOTE | 2020-12-12 16:58 | CM.ED ---
SW Note SW responded to code violent. Patient did not wish to speak to this sba underwriter. No further SW needs at this time. This sba underwriter remains available. Phyllis ORNELAS
--- NOTE | 2020-12-12 17:10 | DS.PCM_ITS ---
Providers Date of Admission: 12/10/20 Primary Care Physician: Dr. Charla Wadsworth MD Consultations 12/10/20 20:55 Consult: Quality Control Lab Tech / Pulmonary Medicine Routine Consulting Provider: Julian Larose Reason for Consult: Respiratory Failure EMERGENT Consult: No MD Notified: Yes Date Notified: 12/10/20 Time Notified: 20:04 Method of Notification: Text Reason For Visit: ASPIRATION PNEUMONITIS, OVERDOSE Diagnosis Discharge Diagnosis (1) Acute respiratory failure with hypoxia: Status: Acute Code(s): J96.01 - Acute respiratory failure with hypoxia (2) Aspiration pneumonitis: Status: Acute Code(s): J69.0 - Pneumonitis due to inhalation of food and vomit (3) Sepsis: Status: Acute Code(s): A41.9 - Sepsis, unspecified organism Qualifiers: Sepsis type: sepsis due to unspecified organism Sepsis acute organ dysfunction status: with acute organ dysfunction Severe sepsis acute organ dysfunction type: acute respiratory failure Acute respiratory failure type: with hypoxia Severe sepsis shock status: without septic shock Qualified Code(s): A41.9 - Sepsis, unspecified organism; R65.20 - Severe sepsis without septic shock; J96.01 - Acute respiratory failure with hypoxia (4) COPD with acute exacerbation: Status: Chronic Code(s): J44.1 - Chronic obstructive pulmonary disease with (acute) exacerbation (5) Tobacco abuse: Status: Acute Code(s): Z72.0 - Tobacco use Medications at Discharge Home Medications buspirone 5 mg tablet 5 mg PO TID #90 tab 02/03/19 lorazepam 1 mg PO TID PRN PRN 06/30/19 zolpidem 10 mg PO QHS 06/30/19 haloperidol 0.5 mg tablet 0.5 mg PO Q6H PRN tab 01/07/20 potassium chloride 20 mEq tablet,extended release(part/cryst) 20 meq PO DAILY #90 tab 01/08/20 promethazine 25 mg tablet 25 mg PO Q6H PRN PRN #30 tab 01/27/20 tramadol 50 mg tablet 50 mg PO Q8H PRN 02/25/20 levothyroxine 25 mcg tablet 25 mcg PO DAILY #90 tab 03/21/20 omeprazole 40 mg capsule,delayed release 40 mg PO DAILY #90 cap 04/22/20 duloxetine 60 mg capsule,delayed release 60 mg PO BID 03/18/21 diclofenac sodium 1 % topical gel 4 g TOPICAL ONCE PRN #100 g MDD 32g/day total 08/05/20 rosuvastatin 10 mg tablet 10 mg PO DAILY #90 tab 08/11/20 methocarbamol 750 mg tablet 750 mg PO BID PRN #180 tab 09/16/20 metoprolol tartrate 100 mg tablet 100 mg PO BID #180 tab 09/23/20 isosorbide mononitrate 30 mg tablet,extended release 24 hr 30 mg PO QAM #30 tab 10/17/20 lisinopril 40 mg tablet 40 mg PO DAILY #90 tab 11/24/20 amlodipine 5 mg tablet 5 mg PO DAILY #90 tablet 11/29/20 amoxicillin-pot clavulanate [Augmentin] 1 tab PO BID #10 tab 12/12/20 Hospital Course Operations None Procedures None Summary of Care Provided Minutes Spent on Discharge: 45 Hospital Course: Patient is a 55-year-old female with a significant past medical history as outlined which includes COPD, anxiety and depression was admitted through the ED on 12/10/2020 after being found unresponsive. Her roommate called the EMS because she was found unresponsive and after being given a dose of Narcan, she came around. She admitted that she overdosed on morphine though she subsequently says she took only 1 pill for opiates. The ED she was noted to be wheezing and tachypneic and she also vomited. She had an NG tube placed and she was placed on oxygen on account of hypoxia. Chest x-ray done showed opacities in the right middle and lower lung field concerning for aspiration pneumonia. She was therefore admitted and managed for acute hypoxic respiratory failure secondary to aspiration pneumonia. She was started on IV Unasyn. She also met SIRS criteria with a focus of infection was diagnosed with sepsis due to pneumonia. He was also managed for acute COPD exacerbation and started on IV Solu-Medrol. Patient symptoms improved and she was weaned off of oxygen. Patient became very anxious and paranoid as well as belligerent and tried to leave AGAINST MEDICAL ADVICE. Patient was pink slipped and put on Haldol, Benadryl and Ativan. Crisis was consulted and evaluated patient and deemed patient does need an inpatient psych admission. Patient was discharged to the inpatient psych facility on 12/12/2020. She was discharged with prescription for p.o. augmentin 1 tab daily for 7 days and she is to follow-up with her primary care doctor in 1 to 2 weeks. Patient seen and examined prior to discharge. SHe had no complaints at time of review, but subequently a code sanchez was called because she tried to barge out of the room. Review of systems was otherwise negative. Labs and vitals reviewed. Home meds reviewed and reconciled. Physical Exam Const alert and oriented x3 General Appearance: cooperative Orientation / Consciousness: awake Exam Limitations: no limitations HEENT normocephalic, head/scalp atraumatic, hearing grossly normal bilaterally and moist oral mucous membranes Eyes PERRL, EOMs intact bilaterally and conjunctivae normal Neck no lymphadenopathy, supple and no JVD Resp normal respiratory effort, no retractions, no use of accessory muscles and clear to auscultation bilaterally Cardio regular rate, regular rhythm, S1 normal heart sound, S2 normal heart sound and n o murmurs GI normal to inspection, nondistended, normoactive bowel sounds, soft to palpation, non-tender and non-distended Extremity normal to inspection, full ROM and no clubbing, cyanosis or edema Skin no rashes or lesions noted Neuro oriented x3 and CN's II-XII intact bilaterally Sensorium / Orientation: awake and alert Psych Psych Narrative: paranoid, anxious. Weight / BMI Weight Weight: 202 lb 6.15 oz Body Mass Index (BMI) 38.2 ABG / Lab / Microbiology Data Result Diagrams: 12/12/20 05:28 12/12/20 05:28 Laboratory: Laboratory Results - last 24 hr 12/12/20 05:28: WBC 22.4 H, RBC 4.51, Hgb 13.3, Hct 40.4, MCV 89.6, MCH 29.5, MCHC 32.9, RDW Std Deviation 50.9 H, RDW Coeff of Ross 15.5 H, Plt Count 237, MPV 9.5, Immature Gran % (Auto) 1.300 H, Neut % (Auto) 86.0 H, Lymph % (Auto) 7.0 L , [place] % (Auto) 5.6, Eos % (Auto) 0.0, Baso % (Auto) 0.1, Absolute Neuts (auto) 19.3 H, Absolute Lymphs (auto) 1.58, Nucleated RBC % 0 12/12/20 05:28: Sodium 143, Potassium 3.6, Chloride 108 H, Carbon Dioxide 28.0, Anion Gap 7, BUN 15, Creatinine 0.70, Estim Creat Clear Calc 68.52, Est GFR (MDRD) Af Amer 111, Est GFR (MDRD) Non-Af 92, BUN/Creatinine Ratio 21.4 H, Glucose 132 H, Calcium 10.0, Total Bilirubin 0.30, AST 149 H, ALT 199 H, Alkaline Phosphatase 158 H, Total Protein 7.6, Albumin 3.1 L, Globulin 4.5 H, Albumin/Globulin Ratio 0.7 L Microbiology: Microbiology 12/10/20 18:44 Nasal Secretion SARS-CoV-2 Antigen (Rapid) - Final D/C Instructions Discharge Diet: No restrictions Discharge Activity: Return to Normal Activity Weight Bearing Status: Weight bearing as tolerated Call your doctor if you observe: Fever of 101 or Higher, Shortness of breath, Swelling in the ankles and Chest pain Meaningful Use Info Meaningful Use Diagnoses (Choose all that apply): None applicable Discharge Plan Admission Admit Date/Time: 12/10/20 19:56 Primary Reason for Your Visit: aspiration pneumonia, opiate overdose Attending Provider: Jenn Cisneros Primary Care Provider: Charla Wadsworth Consulting Providers: Julian Larose Discharge Orders/Prescriptions Prescriptions: New amoxicillin-pot clavulanate [Augmentin] 875-125 mg tablet 1 tab PO BID Qty: 10 RF: 0 Continued haloperidol 0.5 mg tablet 0.5 mg PO Q6H PRN (Reason: Anxiety) RF: 0 tramadol 50 mg tablet 50 mg PO Q8H PRN (Reason: Pain Score 1-10) RF: 0 duloxetine 60 mg capsule,delayed release(DR/EC) 60 mg PO BID RF: 0 lorazepam 1 MG tablet 1 mg PO TID PRN PRN (Reason: Anxiety) RF: 0 zolpidem 10 MG tablet 10 mg PO QHS RF: 0 buspirone 5 mg tablet 5 mg PO TID Qty: 90 RF: 7 potassium chloride 20 mEq tablet,ER particles/crystals 20 meq PO DAILY Qty: 90 RF: 2 promethazine 25 mg tablet 25 mg PO Q6H PRN PRN (Reason: Nausea) Qty: 30 RF: 1 levothyroxine 25 mcg tablet 25 mcg PO DAILY Qty: 90 RF: 3 omeprazole 40 mg capsule,delayed release(DR/EC) 40 mg PO DAILY Qty: 90 RF: 3 diclofenac sodium 1 % gel 4 g topical ONCE MDD 32g/day total PRN (Reason: joint pain) Qty: 100 RF: 1 rosuvastatin 10 mg tablet 10 mg PO DAILY Qty: 90 RF: 3 methocarbamol 750 mg tablet 750 mg PO BID PRN (Reason: muscle spasticity) Qty: 180 RF: 1 metoprolol tartrate 100 mg tablet 100 mg PO BID Qty: 180 RF: 3 isosorbide mononitrate 30 mg tablet extended release 24 hr 30 mg PO QAM Qty: 30 RF: 11 lisinopril 40 mg tablet 40 mg PO DAILY Qty: 90 RF: 0 amlodipine 5 mg tablet 5 mg PO DAILY Qty: 90 RF: 0 Referrals / Follow Up: Charla Wadsworth MD [Primary Care Provider] - Within 2 Weeks Disposition Disposition (needs filled in before D/C Order can be placed): [facility] Charges/Coding Visit Charges Inpatient E&M: 82258 Disch Hosp
--- NOTE | 2020-12-12 17:35 | NURSING ---
transportation will be here at 2100, phoned [facility] for pscy to inform of transport time as well.
[2020-12-12] MEDS: LORazepam 2 MG/ML Syringe 1 MG IM ×2 (18:06→19:41)
[2020-12-12] MEDS: Haloperidol Lactate 5 MG/ML Vial IM (19:41)
[2020-12-12] MEDS: DiphenhydrAMINE 50 MG/ML Syringe 25 MG IM (19:42)
--- NOTE | 2020-12-12 19:59 | NURSING ---
Patient visibly shaking, keeps wanting to leave, very suspicious. Gave Haldol, Ativan and Benedryl as ordered. Pt was cooperative with med administration. Stayed with patient trying to help her be calm. She was receptive to my company.
== END 2020-12-12 22:50 | DRG 917 ==
LOC: ED 19:59 → ICU 20:11 → MS3 12-11 13:23
PROVIDERS: Family Medicine; Admitting Provider Hospitalist; Emergency Provider Emergency Medicine; PCP Internal Medicine; Visit Provider Student in an Organized Health Care Education/Training Program
DX: T40.991A Poisoning by other psychodysleptics [hallucinogens], accidental (unintentional), initial encounter (principal); A41.9 Sepsis, unspecified organism; R65.20 Severe sepsis without septic shock; J69.0 Pneumonitis due to inhalation of food and vomit; J96.01 Acute respiratory failure with hypoxia; J44.0 Chronic obstructive pulmonary disease with (acute) lower respiratory infection; J44.1 Chronic obstructive pulmonary disease with (acute) exacerbation; T40.2X1A Poisoning by other opioids, accidental (unintentional), initial encounter; Y92.9 Unspecified place or not applicable; Z20.822 Contact with and (suspected) exposure to COVID-19; I25.10 Atherosclerotic heart disease of native coronary artery without angina pectoris; I49.5 Sick sinus syndrome; I10 Essential (primary) hypertension; E78.49 Other hyperlipidemia; G62.9 Polyneuropathy, unspecified; E03.9 Hypothyroidism, unspecified; M19.90 Unspecified osteoarthritis, unspecified site; G89.4 Chronic pain syndrome; K21.9 Gastro-esophageal reflux disease without esophagitis; G47.33 Obstructive sleep apnea (adult) (pediatric); F39 Unspecified mood [affective] disorder; F32.A Depression, unspecified; F43.10 Post-traumatic stress disorder, unspecified; F41.9 Anxiety disorder, unspecified; F17.210 Nicotine dependence, cigarettes, uncomplicated; E66.9 Obesity, unspecified; Z68.39 Body mass index [BMI] 39.0-39.9, adult; Z79.890 Hormone replacement therapy; Z79.899 Other long term (current) drug therapy; Z87.01 Personal history of pneumonia (recurrent); Z95.0 Presence of cardiac pacemaker
CPT/HCPCS: 36415; 36600; 51702; 71045; 80048; 80053; 80307; 81001; 82803; 83605; 85025; 87040; 87426; 93005; 94640; 99285; J7040; J7050; A4216; J0295; J2405

== ENCOUNTER → 2020-12-27 14:06 | Outpatient (CLI) | payer MEDICARE, MEDICAID, SELFPAY ==
--- NOTE | 2020-12-27 14:08 | CT_ITS ---
STUDY: LOW DOSE CT LUNG CANCER SCREENING REASON FOR EXAM: Female, 55 years old. Screening for lung cancer -- 30 pack yr history; asymptomatic; current smoker RADIATION DOSAGE (If Supplied By Facility): CTDIvol = ( 2.39 ) mGy, DLP = ( 66.10 ) mGycm TECHNIQUE: No contrast was administered. Low dose technique was utilized (average mAS-38 and kVp 120). 1.25 mm axial source images with a slice interval of 1.25-mm were reconstructed in lung windows. 2.5 mm axial source images with a slice interval of 2.5-mm were reconstructed in lung windows. 5.0 mm axial source images with a slice interval of 5.0-mm were reconstructed in soft tissue windows. Nodule measured using lung windows on PACS and/or independent workstation with automated measurement of minimum and maximum diameter. Nodule measurement reported as average diameter rounded to the nearest whole number. Growth is defined as an increase ins size of greater than 1.5 mm. COMPARISON: None. NODULES: No suspicious nodules are seen. Emphysema: Linear density in the posterior aspect of the right middle lobe laterally suggestive of focal scarring. Endobronchial lesion: None Aorta: Mild degree of atherosclerotic plaque formation of the aortic arch. Coronary arteries: Coronary artery calcification. Heart: A left-sided dual-chamber pacemaker is seen. Mediastinal nodes: Small benign-appearing mediastinal lymph nodes. Other chest and abdominal findings: CT/Low Dose CT Lung Screening IMPRESSION: Lung-RADS category 2 - Continue annual screening with LDCT in 12 months. IMPORTANT NOTES FOR USE: ACR Lung-RADS Version 1.1 Assessment Categories Release Date: 2018 Category: Coded 0-4 bases on nodule(s) with highest degree of suspicion. Negative screen is defined as categories 1 and 2; a positive screen is defined as categories 3 and 4. Category 3 and 4A nodules that are unchanged on interval CT should be coded as category 2, and individuals returned to screening in 12 months. Category 4X: Category 3 or 4 nodules with additional imaging findings that increase the suspicion of lung cancer, such as spiculation, GGN that doubles in size in 1 year, enlarged lymph notes, etc. Category Modifiers: S (significant finding unrelated to lung cancer) Electronically Signed: Ming Roberts MD at 15:05 EDT , Service support ,
== END ==
PROVIDERS: PCP Internal Medicine; Referring Provider Nurse Practitioner Family; Visit Provider Nurse Practitioner Family
DX: Z12.2 Encounter for screening for malignant neoplasm of respiratory organs (principal); Z87.891 Personal history of nicotine dependence
CPT/HCPCS: 71271

== ENCOUNTER 2021-01-06 19:47 | Emergency (ER) | payer MEDICARE, MEDICAID, SELFPAY ==
[2021-01-06 19:48] VITALS: BP 155/97; PULSE 70; RESP 11; TEMP 36.9; O2SAT 96; BMI 39.2
--- NOTE | 2021-01-06 20:31 | EKG12_ITS ---
Test Reason : CP Blood Pressure : / mmHG Vent. Rate : 064 BPM Atrial Rate : 064 BPM P-R Int : 148 ms QRS Dur : 076 ms QT Int : 438 ms P-R-T Axes : 037 076 050 degrees QTc Int : 451 ms Normal sinus rhythm Normal ECG Confirmed by AIDEN GAUTAM, LEELEE ([id number]), newspaper copy editor OTIS RUIZ ([id number]) on 01/10/2021 9:17:37 AM Referred By: KATI Confirmed By:LEELEE WOLFE MD
--- NOTE | 2021-01-06 20:31 | RAD_ITS ---
STUDY: X-RAY CHEST REASON FOR EXAM: Female, 55 years old. Chest pain since 1400. No relief with ASPIRIN and NITROGLYCERIN.. TECHNIQUE: Single AP portable view of the chest. COMPARISON: 12/10/2020. FINDINGS: Enteric tubes, present on the prior study, is no longer seen. The lungs are clear and expanded. There is resolution of the right perihilar infiltrate seen on the prior study. There is no demonstrated pleural abnormality. Normal size heart. Stable cardiomegaly. Normal mediastinum and archana. Normal visualized pulmonary arteries. Normal visualized aortic arch and descending thoracic aorta. The thoracic spine is obscured by the mediastinum. Normal visualized ribs, clavicles, and shoulders. There is no demonstrated abnormality of the visualized soft tissue structures of the upper abdomen. RAD/Chest 1 View (Portable) IMPRESSION: 1. No acute cardiopulmonary disease. 2. Stable pacemaker. Electronically Signed: Mushtaq Marin DO at 21:17 EDT Tel [phone], Service support ,
--- NOTE | 2021-01-06 20:32 | ED.VIS.CHEST ---
HPI History of Present Illness Chief Complaint: Chest Pain Informant: patient Onset/Context/Timing Onset: Today Timing: Continuous Quality: Positive for Heaviness and Pressure Location: Substernal Current Severity: Moderate Maximum Severity: Moderate Worsened By: Exertion Relieved By: Rest Associated Symptoms: Positive for Dyspnea Narrative Narrative: Patient present secondary to chest pain. She states chest pain started 2 PM this afternoon and feels a heavy pressure sitting on her chest. It does seem to get worse with exertion and better with rest. She also complains of shortness of breath. No cough or congestion. No fever or chills. [facility] Medical History (Updated 01/06/21 @ 23:[address] Suki Cruz MD) Abdominal pain Anemia Anxiety and depression Atherosclerotic heart disease of [place] coronary artery without angina pectoris Bone fracture Chronic lower back pain Chronic pain syndrome COPD (chronic obstructive pulmonary disease) Diarrhea Encounter for screening for malignant neoplasm of lung in current smoker with 30 pack year history or greater Essential (primary) hypertension Familial combined hyperlipidemia Gabapentin overdose GERD (gastroesophageal reflux disease) Heart murmur History of pneumonia Hyperlipidemia Hypothyroidism Intermittent palpitations Low back strain Monomorphic ventricular tachycardia Neuroendocrine neoplasm of stomach Neuropathy Obesity Obstructive sleep apnea ELOY (obstructive sleep apnea) Osteoarthritis Polycythemia Primary malignant neuroendocrine tumor of stomach PTSD (post-traumatic stress disorder) Sacral contusion Sick sinus syndrome Sinus pause Tobacco dependence syndrome Tobacco use disorder, continuous Vitamin D deficiency Home Medications buspirone 5 mg tablet 5 mg PO TID #90 tab 02/03/19 [Rx Last Taken 10/23/19] lorazepam 1 mg PO TID PRN PRN 06/30/19 [History Last Taken 10/23/19 21:30] zolpidem 10 mg PO QHS 06/30/19 [History Last Taken 10/22/19] haloperidol 0.5 mg tablet 0.5 mg PO Q6H PRN tab 01/07/20 [History Last Taken Unknown] potassium chloride 20 mEq tablet,extended release(part/cryst) 20 meq PO DAILY #90 tab 01/08/20 [Rx Last Taken Unknown] promethazine 25 mg tablet 25 mg PO Q6H PRN PRN #30 tab 01/27/20 [Rx Last Taken Unknown] tramadol 50 mg tablet 50 mg PO Q8H PRN 02/25/20 [History Last Taken Unknown] levothyroxine 25 mcg tablet 25 mcg PO DAILY #90 tab 03/21/20 [Rx Last Taken Unknown] omeprazole 40 mg capsule,delayed release 40 mg PO DAILY #90 cap 04/22/20 [Rx Last Taken Unknown] duloxetine 60 mg capsule,delayed release 60 mg PO BID 05/26/20 [History Last Taken Unknown] diclofenac sodium 1 % topical gel 4 g TOPICAL ONCE PRN #100 g MDD 32g/day total 08/05/20 [Rx Last Taken Unknown] rosuvastatin 10 mg tablet 10 mg PO DAILY #90 tab 08/11/20 [Rx Last Taken Unknown] methocarbamol 750 mg tablet 750 mg PO BID PRN #180 tab 09/16/20 [Rx Last Taken Unknown] metoprolol tartrate 100 mg tablet 100 mg PO BID #180 tab 09/23/20 [Rx Last Taken Unknown] isosorbide mononitrate 30 mg tablet,extended release 24 hr 30 mg PO QAM #30 tab 10/17/20 [Rx Last Taken Unknown] lisinopril 40 mg tablet 40 mg PO DAILY #90 tab 11/24/20 [Rx Last Taken Unknown] amlodipine 5 mg tablet 5 mg PO DAILY #90 tablet 11/29/20 [Rx Last Taken Unknown] amoxicillin-pot clavulanate [Augmentin] 1 tab PO BID #10 tab 12/12/20 [Rx Last Taken Unknown] Allergy/AdvReac Type Severity Reaction Status Date / Time latex Allergy Intermediate skin Verified 01/06/21 19:50 irritation aspirin AdvReac Severe Nausea/Vom/ Verified 01/06/21 19:50 Diarrhea erythromycin base AdvReac Severe Vomiting,di Verified 01/06/21 19:50 [Erythromycin Base] arrhea NSAIDS (Non-Steroidal AdvReac Severe Vomiting,di Verified 01/06/21 19:50 Anti-Inflamma arrhea Family History Daughter Multiple sclerosis Father CAD (coronary artery disease) Heart disease Multiple sclerosis Grandfather Heart disease Uncle Heart disease Aunt No problems noted. Sister Colon cancer Mother Hypertension Surgical History history excision neuroendocrine tumor History of appendectomy History of back surgery History of colonoscopy History of elbow surgery History of hysterectomy History of laparotomy History of left heart catheterization (12/11/19) History of resection of stomach Hx of cholecystectomy Presence of permanent cardiac pacemaker (2014) Social History Smoking Status: Current some day smoker tobacco type: cigarettes Tobacco: How many years used: 30 second hand exposure: Yes quit status: has quit before alcohol intake: never substance use type: does not use what type of physical activity do you participate in: none ivania/confucianism: None seatbelt use: always do you feel safe at home: Yes ROS ROS ED Constitutional Constitutional ED: Denies chills or fever(s) Eyes Eyes: Denies change in vision ENT ENT ED: Denies sore throat Cardiovascular Cardiovascular: Reports chest pain Respiratory/Chest Respiratory/Chest: Reports dyspnea; Denies cough Gastrointestinal Gastrointestinal: Denies abdominal pain, diarrhea, nausea or vomiting Genitourinary Genitourinary ED: Denies dysuria Musculoskeletal Musculoskeletal: Denies back pain Integumentary Denies rash Neurologic Neurologic: Denies headache(s) or weakness Allergic/Immunologic Allergic/Immunologic ED: Denies urticaria EXAM Physical Exam Const Vital Signs: 01/06/21 19:48 01/06/21 21:23 01/06/21 22:06 Temperature 98.5 F Temperature Source Oral Pulse Rate 70 62 87 Respiratory Rate 11 L 17 17 Blood Pressure 155/97 H 143/68 H 123/83 H Blood Pressure Mean 116 93 96 Pulse Ox 96 97 97 Oxygen Delivery Method Room Air Room Air 01/06/21 23:19 Temperature Temperature Source Pulse Rate Respiratory Rate Blood Pressure 152/68 H Blood Pressure Mean 96 Pulse Ox Oxygen Delivery Method Positive well nourished and well developed General Appearance ED: well developed Neck supple Chest Wall inspection of chest normal and palpation of chest normal Resp normal respiratory effort Effort and Inspection: respiratory distress Cardio regular rate and regular rhythm GI normal to inspection, nondistended, normoactive bowel sounds Extremity normal to inspection General Extremety ED: Negative for edema General Extremity: Negative for edema Neuro CN's II-XII intact bilaterally Sensorium / Orientation: awake and alert Motor Exam: strength 5/5 throughout Psych mental status grossly normal Skin no rashes or lesions noted MDM MDM MDM Narrative Medical decision making narrative: Patient been given aspirin and 1 nitro with EMS. Patient placed on patient monitor here. EKG, labs, chest x-ray ordered. Patient was given 25 mcg of fentanyl. Lab Data Attestation: I reviewed the patient's lab results. Labs: Laboratory Results - last 24 hr 01/06/21 01/06/21 01/06/21 20:50 20:50 20:50 WBC 11.8 H RBC 4.94 Hgb 14.2 Hct 44.6 MCV 90.3 MCH 28.7 MCHC 31.8 L RDW Std Deviation 49.3 H RDW Coeff of Ross 15.0 H Plt Count 287 MPV 9.0 Immature Gran % (Auto) 1.300 H Neut % (Auto) 57.4 Lymph % (Auto) 31.0 [place] % (Auto) 6.3 Eos % (Auto) 3.6 Baso % (Auto) 0.4 Absolute Neuts (auto) 6.8 Absolute Lymphs (auto) 3.66 Nucleated RBC % 0 D-Dimer Quant (PE/DVT) 0.69 H* Sodium 142 Potassium 3.9 Chloride 110 H Carbon Dioxide 26.0 Anion Gap 6 BUN 16 Creatinine 1.15 H Estim Creat Clear Calc 41.71 Est GFR (MDRD) Af Amer 63 Est GFR (MDRD) Non-Af 52 L BUN/Creatinine Ratio 13.9 Glucose 126 H Calcium 8.9 Troponin I High Sens 6 Radiography Chest X-Ray - ED: 1 View, Read by ED Physician and Chronic Changes Diagnostic Testing: Clinical Impression(s) from Imaging Studies Chest X-Ray 01/06/21 20:31 IMPRESSION: 1. No acute cardiopulmonary disease. 2. Stable pacemaker. Electronically Signed: Mushtaq Marin DO at 21:17 EDT Tel [phone], Service support , Chest CTA 01/06/21 21:30 IMPRESSION: No pulmonary embolus or thoracic aortic dissection or aneurysm. No acute findings. Coronary artery atherosclerosis. Electronically Signed: Raymon Johns MD at 22:14 EDT Tel , Service support , EKG Initial EKG: Attestation: I personally reviewed and interpreted this EKG as follows: Interpretation: Sinus Rhythm (Sinus at 64 with no acute ischemia.) Follow-up EKG: Attestation: I personally reviewed and interpreted this EKG as follows: Interpretation: Sinus Rhythm (Sinus at 64 with no acute ischemia.) Treatment and Re-Evaluation Comments:: On repeat evaluation patient still complaining of pain. Labs reviewed with her. Troponin is negative with 6+ hours of pain. D-dimer is slightly elevated and CTA of the chest reveals no acute findings. Due to allergies to NSAIDs, patient is given a dose of Tylenol as well as GI cocktail. Patient states that this did not seem to help her pain significantly, but she is now wondering if she may have pulled a muscle in her chest as palpating over her chest wall is sore. She has an allergy to NSAIDs but can take diclofenac gel. She is a refill left and I did suggest using this to help with the chest wall pain. Patient will be discharged with return instructions. Discharge Plan Triage Chief Complaint: Chest Pain ED Provider: Suki Cruz Dx/Rx/DC Orders Clinical Impression: Chest pain Instructions: ED Chest Pain, Noncardiac Prescriptions: No Action haloperidol 0.5 mg tablet 0.5 mg PO Q6H PRN (Reason: Anxiety) RF: 0 tramadol 50 mg tablet 50 mg PO Q8H PRN (Reason: Pain Score 1-10) RF: 0 duloxetine 60 mg capsule,delayed release(DR/EC) 60 mg PO BID RF: 0 lorazepam 1 MG tablet 1 mg PO TID PRN PRN (Reason: Anxiety) RF: 0 zolpidem 10 MG tablet 10 mg PO QHS RF: 0 amoxicillin-pot clavulanate [Augmentin] 875-125 mg tablet 1 tab PO BID Qty: 10 RF: 0 buspirone 5 mg tablet 5 mg PO TID Qty: 90 RF: 7 potassium chloride 20 mEq tablet,ER particles/crystals 20 meq PO DAILY Qty: 90 RF: 2 promethazine 25 mg tablet 25 mg PO Q6H PRN PRN (Reason: Nausea) Qty: 30 RF: 1 levothyroxine 25 mcg tablet 25 mcg PO DAILY Qty: 90 RF: 3 omeprazole 40 mg capsule,delayed release(DR/EC) 40 mg PO DAILY Qty: 90 RF: 3 diclofenac sodium 1 % gel 4 g topical ONCE MDD 32g/day total PRN (Reason: joint pain) Qty: 100 RF: 1 rosuvastatin 10 mg tablet 10 mg PO DAILY Qty: 90 RF: 3 methocarbamol 750 mg tablet 750 mg PO BID PRN (Reason: muscle spasticity) Qty: 180 RF: 1 metoprolol tartrate 100 mg tablet 100 mg PO BID Qty: 180 RF: 3 isosorbide mononitrate 30 mg tablet extended release 24 hr 30 mg PO QAM Qty: 30 RF: 11 lisinopril 40 mg tablet 40 mg PO DAILY Qty: 90 RF: 0 amlodipine 5 mg tablet 5 mg PO DAILY Qty: 90 RF: 0 Primary Care Provider: Charla Wadsworth Referrals: Charla Wadsworth MD [Primary Care Provider] - 1 Week if not improving Disposition Disposition: Home, Self Care
[2021-01-06 21:07] LABS: Absolute Lymphocyte Count 3.66 X10^3/uL (0.83-4.51); Absolute Neutrophil Count 6.8 X10^3/uL (2.0-7.7); Basophil# 0.05 X10^3/uL; Basophil% 0.4 % (0-1); Eosinophil# 0.43 X10^3/uL; Eosinophils% 3.6 % (0-5); Hematocrit 44.6 % (37-47); Hemoglobin 14.2 g/dL (12.0-15.0); Lymphocyte # 3.66 X10^3/ul (0.83-4.51); Mean Corp Hgb Conc 31.8 g/dL (32-36); Mean Corpuscular Hgb 28.7 pg (27.0-32.0); Mean Corpuscular Volume 90.3 fL (81-99); Monocyte# 0.74 X10^3/uL; Monocyte% 6.3 % (0-10); NRBC Flagged by Analyzer 0 % (0-5); Neutrophil # 6.76 X10^3/uL (2.7-7.7); Neutrophil % 57.4 % (47-70); Platelet Count 287 K/mm3 (150-450); RBC Distribution Width SD 49.3 fl (35.1-43.9); Red Blood Count 4.94 M/mm3 (4.2-5.4); White Blood Count 11.8 K/mm3 (4.4-11.0)
[2021-01-06 21:16] LABS: D-Dimer Quantitative (DVT/PE) 0.69 FEU/ug/m (0.27-0.49)
[2021-01-06 21:17] LABS: Anion Gap 6 (5-15); BUN 16 mg/dL (7-18); BUN/Creat Ratio 13.9 RATIO (10-20); Calcium,Total 8.9 mg/dL (8.5-10.1); Chloride 110 mmol/L (98-107); Creatinine, Serum 1.15 mg/dL (0.55-1.02); EST Glomerular Filtration Rate 52 mL/min (>60); Est Glom Filt Rate - Afr Amer 63 mL/min (>60); Estimated Creatinine Clearance 41.71 ml/min; Glucose 126 mg/dL (74-106); Potassium 3.9 mmol/L (3.5-5.1); Sodium Level 142 mmol/L (136-145); Troponin-I HS 6 pg/mL (3.0-54.0)
[2021-01-06] MEDS: 0.9% Normal Saline 1,000 ML 150 ML IV (21:19)
[2021-01-06] MEDS: fentaNYL 100 MCG/2 ML Ampul 25 MCG IV (21:19)
[2021-01-06 21:23] VITALS: BP 143/68; PULSE 62; RESP 17; O2SAT 97
--- NOTE | 2021-01-06 21:30 | CT_ITS ---
STUDY: CTA CHEST REASON FOR EXAM: Female, 55 years old. Chest pain and elevated d-dimer. RADIATION DOSAGE (If Supplied By Facility): CTDIvol = ( 13.79 ) mGy, DLP = ( 579.32 ) mGycm TECHNIQUE: The examination was performed with the intravenous administration of IV 100mL Isovue-370. Post-processing of the angiographic images was performed, with MIP reconstructed images. Individualized dose optimization techniques were used for this CT. COMPARISON: Chest radiograph same day. CT chest without contrast 12/27/2020. FINDINGS: Heart and great vessels: Heart size normal. No dissection or aneurysm of the thoracic aorta. No pulmonary embolus. No evidence of right heart strain. Calcific atherosclerosis of the left anterior descending coronary artery, not well evaluated because of cardiac motion. Implanted cardiac device left chest with 2 intact leads extending into the right atrium and right ventricle. Lungs, pleura: No pneumonia, edema, or acute abnormality in the lungs. No pleural effusion. No pneumothorax. Mediastinum: No adenopathy or mass or hematoma. Osseous:No fracture or acute osseous abnormality. Chest wall: No concerning findings. Upper abdomen: No acute findings. Status post cholecystectomy. Any findings described in the findings sections and not included in the impression are incidental and do not require imaging follow-up. CT/CTA Chest W/WO Contrast IMPRESSION: No pulmonary embolus or thoracic aortic dissection or aneurysm. No acute findings. Coronary artery atherosclerosis. Electronically Signed: Raymon Johns MD at 22:14 EDT Tel , Service support ,
[2021-01-06] MEDS: Ondansetron 4 MG/2 ML Vial IV (21:48)
[2021-01-06 22:06] VITALS: BP 123/83; PULSE 87; RESP 17; O2SAT 97
--- NOTE | 2021-01-06 22:15 | ED.RN ---
Dr Cruz aware of pain and waiting on ct results
--- NOTE | 2021-01-06 22:29 | EKG12_ITS ---
Test Reason : REPEAT Blood Pressure : / mmHG Vent. Rate : 064 BPM Atrial Rate : 064 BPM P-R Int : 180 ms QRS Dur : 076 ms QT Int : 450 ms P-R-T Axes : 044 065 043 degrees QTc Int : 464 ms Normal sinus rhythm Normal ECG Confirmed by AIDEN GAUTAM, LEELEE ([id number]), digital editor OTIS RUIZ ([id number]) on 01/10/2021 9:18:10 AM Referred By: KATI Confirmed By:LEELEE WOLFE MD
[2021-01-06 23:19] VITALS: BP 152/68
[2021-01-06] MEDS: Acetaminophen 500 MG Tablet 1000 MG PO (23:19)
[2021-01-06] MEDS: Mag Hydrox/Al Hydrox/Simeth 30 ML UDC PO (23:19)
== END 2021-01-06 23:32 | disposition home or self-care (01) ==
PROVIDERS: Emergency Provider Emergency Medicine; PCP Internal Medicine
DX: R07.89 Other chest pain (principal); I25.10 Atherosclerotic heart disease of native coronary artery without angina pectoris; G89.4 Chronic pain syndrome; J44.9 Chronic obstructive pulmonary disease, unspecified; I10 Essential (primary) hypertension; E78.49 Other hyperlipidemia; E03.9 Hypothyroidism, unspecified; K21.9 Gastro-esophageal reflux disease without esophagitis; G47.33 Obstructive sleep apnea (adult) (pediatric); E66.9 Obesity, unspecified; F43.10 Post-traumatic stress disorder, unspecified; F32.A Depression, unspecified; F41.9 Anxiety disorder, unspecified; F17.210 Nicotine dependence, cigarettes, uncomplicated; Z79.899 Other long term (current) drug therapy
CPT/HCPCS: 71045; 71275; 80048; 84484; 85025; 85379; 93005; 96361; 96374; 96375; 99285; J7030; Q9967; A4216; J2405

== ENCOUNTER → 2021-02-27 13:51 | Outpatient (CLI) | payer MEDICARE, MEDICAID, SELFPAY ==
--- NOTE | 2021-02-27 13:53 | BI_ITS ---
MAMMOGRAPHY - BILATERAL SCREENING REASON FOR EXAM: Female, 55 years old. Routine annual screening examination. PERTINENT HISTORY: Non-contributory. TECHNIQUE: Digital bilateral breast lucy (3D mammographic acquisition) in the CC and MLO projections. 2-D mediolateral oblique (MLO) and craniocaudad (CC) views of both breasts were obtained. CAD: Full Field Digital Mammography with Computer Added Detection was performed. COMPARISON: Comparison is made with prior study dated 02/05/2020. FINDINGS: Breast Composition: There are scattered areas of fibroglandular density. There are no dominant masses or suspicious calcifications. Wants again, a pacemaker battery pack is seen in the left axillary region. Stable benign-appearing left axillary lymph nodes. No other significant abnormalities are identified. There has been no significant change since the prior study. BI/SCRN MAMM (CAD)W/LUCY BILAT IMPRESSION: Stable bilateral screening mammogram. Yearly follow-up mammogram recommended. (A) ASSESSMENT CATEGORY: BIRADS Category 2: Benign. A letter regarding these results will be sent to the patient by the facility within 30 days. Approximately 10% of breast cancers are not detected by mammography. A normal mammogram should not delay biopsy of a clinically suspicious abnormality. [id number] Electronically Signed: Ming Roberts MD at 15:21 EST , Service support ,
== END ==
PROVIDERS: PCP Internal Medicine; Referring Provider Internal Medicine Hematology & Oncology; Visit Provider Internal Medicine Hematology & Oncology
DX: Z12.31 Encounter for screening mammogram for malignant neoplasm of breast (principal)
CPT/HCPCS: 77063; 77067

== ENCOUNTER → 2021-03-01 11:31 | Outpatient (CLI) | payer MEDICARE, MEDICAID, SELFPAY ==
[2021-03-01 12:39] LABS: Anion Gap 2 (5-15); BUN 9 mg/dL (7-18); BUN/Creat Ratio 9.6 RATIO (10-20); Calcium,Total 9.6 mg/dL (8.5-10.1); Chloride 112 mmol/L (98-107); Cholesterol 204 mg/dL (200); Creatinine, Serum 0.94 mg/dL (0.55-1.02); EST Glomerular Filtration Rate 66 mL/min (>60); Est Glom Filt Rate - Afr Amer 79 mL/min (>60); Glucose 97 mg/dL (74-106); High Density Lipoprotein 34 mg/dL; Potassium 4.8 mmol/L (3.5-5.1); Sodium Level 145 mmol/L (136-145); Triglycerides 282 mg/dL; Very Low Density Lipoprotein 56 mg/dL (5-40)
== END ==
PROVIDERS: PCP Internal Medicine; Referring Provider Internal Medicine; Visit Provider Internal Medicine
DX: I10 Essential (primary) hypertension (principal)
CPT/HCPCS: 36415; 80048; 80061

== ENCOUNTER 2021-04-24 13:12 | Outpatient (CLI) | payer MEDICARE, MEDICAID, SELFPAY ==
--- NOTE | 2021-04-24 13:24 | RAD_ITS ---
STUDY: X-RAY - PELVIS AND BILATERAL HIPS REASON FOR EXAM: Female, 55 years old. HIP JOINT PAIN TECHNIQUE: AP view of the pelvis.? 2 views of the right hip, and 2 views of the left hip were obtained. COMPARISON: None. FINDINGS: There is a non-specific bowel gas pattern. Normal visualized soft tissue structures. There is narrowing with cortical sclerosis and osteophyte formation of the sacroiliac joint consistent with degenerative osteoarthritic changes. Normal bilateral superior and inferior pubic rami. Normal pubic symphysis. Normal bilateral ischial tuberosities. Normal visualized right femoral head. Normal right acetabulum. There is mild articular joint space narrowing of the right hip. Normal visualized left femoral head. Normal left acetabulum. There is mild articular joint space narrowing of the left hip. RAD/Hips B/L min 2 views w/ Pelvis IMPRESSION: Age consistent arthrosis, no demonstrated fracture or suspicious osseous lesion Electronically Signed: Murphy Dobbs MD at 15:59 EST ,
--- NOTE | 2021-04-24 13:24 | RAD_ITS ---
STUDY: X-RAY - LUMBAR SPINE REASON FOR EXAM: Female, 55 years old. Persistent back pain after surgery TECHNIQUE: 4 view(s) of the lumbar spine were obtained. COMPARISON: None FINDINGS: Normal lumbar lordosis. There is no substantial scoliosis. There is a normal alignment of the vertebrae. There is been pedicle screw fusion surgery and laminectomy at L4-5. Hardware is intact and free of complication. Normal vertebral bodies and endplates. Normal disc space heights. There is no demonstrated fracture. The soft tissue structures are unremarkable. RAD/L/S Spine Min 4 Views IMPRESSION: No acute findings, postsurgical changes at L4-5 are free of complication. Electronically Signed: Murphy Dobbs MD at 10:14 EST ,
== END 2021-04-24 23:59 | disposition home or self-care (01) ==
LOC: RAD 13:15
PROVIDERS: PCP Internal Medicine; Referring Provider Nurse Practitioner Family; Visit Provider Nurse Practitioner Family
DX: M54.9 Dorsalgia, unspecified (principal); M96.1 Postlaminectomy syndrome, not elsewhere classified; M25.559 Pain in unspecified hip
CPT/HCPCS: 72110; 73521

== ENCOUNTER → 2021-08-15 | Outpatient (CLI) | payer MEDICARE, MEDICAID, SELFPAY ==
--- NOTE | 2021-08-15 15:35 | RAD_ITS ---
EXAM: XR CHEST, 2 VIEWS CLINICAL INDICATION: cad TECHNIQUE: Frontal and lateral views of the chest. This report was created using [employer] report generation technology. COMPARISON: January 06, 2021. FINDINGS: LUNGS AND PLEURAL SPACES: Unremarkable. No consolidation or edema. No pneumothorax. No effusion. HEART: Unremarkable. Cardiac silhouette not enlarged. MEDIASTINUM: Central airways and mediastinal contour are unremarkable. BONES/JOINTS: Unremarkable. SOFT TISSUES: Unremarkable. TUBES, LINES AND DEVICES: Stable left subclavian transvenous pacemaker leads. UPPER ABDOMEN: Cholecystectomy clips are noted on the lateral exam. RAD/Chest PA and Lateral IMPRESSION: Stable chest. Electronically Signed: Tiffani Perez MD at 6:11 EDT ,
== END | disposition home or self-care (01) ==
LOC: RAD 15:32
PROVIDERS: PCP Internal Medicine; Referring Provider Internal Medicine Cardiovascular Disease; Visit Provider Internal Medicine Cardiovascular Disease
DX: R07.9 Chest pain, unspecified (principal); I25.10 Atherosclerotic heart disease of native coronary artery without angina pectoris; Z95.0 Presence of cardiac pacemaker
CPT/HCPCS: 71046

== ENCOUNTER 2021-08-17 10:56 | Day surgery (SDC) | payer MEDICARE, MEDICAID, SELFPAY ==
[2021-08-15 17:12] LABS: Absolute Lymphocyte Count 4.25 X10^3/uL (0.83-4.51); Absolute Neutrophil Count 12.8 X10^3/uL (2.0-7.7); Basophil# 0.06 X10^3/uL; Basophil% 0.3 % (0-1); Eosinophil# 0.11 X10^3/uL; Eosinophils% 0.6 % (0-5); Hematocrit 45.2 % (37-47); Hemoglobin 14.6 g/dL (12.0-15.0); Lymphocyte # 4.25 X10^3/ul (0.83-4.51); Lymphocyte % 23.2 % (19-41); Mean Corp Hgb Conc 32.3 g/dL (32-36); Mean Corpuscular Volume 92.8 fL (81-99); Mean Platelet Vol. 9.9 fl (6.2-12.0); Monocyte% 5.5 % (0-10); NRBC Flagged by Analyzer 0 % (0-5); Neutrophil # 12.76 X10^3/uL (2.7-7.7); Neutrophil % 69.6 % (47-70); Platelet Count 286 K/mm3 (150-450); RBC Distribution Width CV 15.1 % (11.6-14.6); RBC Distribution Width SD 51.7 fl (35.1-43.9); Red Blood Count 4.87 M/mm3 (4.2-5.4); White Blood Count 18.3 K/mm3 (4.4-11.0)
[2021-08-15 17:54] LABS: Anion Gap 7 (5-15); BUN 14 mg/dL (7-18); BUN/Creat Ratio 12.3 RATIO (10-20); Calcium,Total 9.3 mg/dL (8.5-10.1); Chloride 107 mmol/L (98-107); Creatinine, Serum 1.14 mg/dL (0.55-1.02); EST Glomerular Filtration Rate 52 mL/min (>60); Est Glom Filt Rate - Afr Amer 63 mL/min (>60); Glucose 100 mg/dL (74-106); Potassium 4.2 mmol/L (3.5-5.1); Sodium Level 140 mmol/L (136-145)
[2021-08-16 10:02] VITALS: BMI 41.2
--- NOTE | 2021-08-17 13:18 | CL.D_ITS ---
Patient Name: RAMSES BRADSHAW Study Date: 08/17/2021 Performing: Samuel Keys MD Ht: 59.84 inches 152 cm : 1965 Wt: 211.64 lbs 96 kg Age: 56 Gender: female BSA: 1.91 PROCEDURE(S) PERFORMED DC01-([id number])LHC/COR/LV CLINICAL PROFILE AND INDICATIONS Indications: Stable Known CAD Heart Failure: None CONCLUSIONS Mild to moderate disease noted in the left anterior descending artery with a totally occluded right c oronary artery and left to right collaterals. RECOMMENDATIONS Medical therapy DESCRIPTION OF PROCEDURE The patient arrived to the procedure lab. The risks and benefits of the procedure as well as a full d escription of our services here and current unavailability of surgical backup were fully explained to the patient and/or their significant other prior to the catheterization. The Timeout was completed, verifying the correct patient and procedure. The patient's procedural site was prepped and draped in the usual fashion. Local anesthetic was given subcutaneously to right radial region with Lidocaine 2% . Local anesthetic was given subcutaneously to right groin region with Lidocaine 2%. Using a modified Seldinger technique, arterial access was obtained via the right femoral artery, a 5Fr sheath was ins erted. Left Coronary Artery selective angiography was performed in multiple views using a 5 Fr. JL4 catheter. Right Coronary Artery selective angiography was then performed in multiple views using a 5 Fr. 3DRC (Elbert) catheter. Left Ventriculography was performed in TARIQ projection using a 5 Fr. Pigtail catheter. LV to AO pullback pressures were then recorded.Contrast was injected throug h the sheath and the Right Iliac and Femoral artery were assessed for possible closure device.The art erial sheath was pulled and a Mynx closure device was deployed for hemostasis CORONARY ANGIOGRAPHY DOMINANCE: Right Dominant LEFT HEART ASSESSMENT Left Ventricular Ejection Fraction: by LV Gram 55 % Inferior Basal Hypokinesis - Mild Normal Left Ventricular systolic function LEFT MAIN: Angiographically normal LEFT ANTERIOR DESCENDING ARTERY: MID LAD: Moderate luminal irregularities up to 50% CIRCUMFLEX ARTERY: Mild luminal irregularities less than 30% RIGHT CORONARY ARTERY: PROX RCA: is occluded COLLATERAL FLOW: Collateral flow from Left to Right COMPLICATIONS No Complications PROCEDURE MEDICATIONS Versed 1 mg IV Fentanyl 50 mcg IV Versed 1 mg IV Oxygen: 2 L/min via nasal cannula SUMMARY OF HEMODYNAMIC DATA Time AIR REST ECG 11:42:28 AO 103/70 (87) SA 12:56:32 LV 121/9, 13 13:03:16 LV 116/13, 14 13:03:23 LV 103/16, 17 13:04:16 LV 104/14, 16 13:04:23 LVp 108/11, 15 13:04:26 AOp 128/76 (99) 13:04:31 Signed By Samuel Keys MD On 08/17/2021 1:17:42 PM Samuel Keys MD
== END 2021-08-17 15:55 | disposition home or self-care (01) ==
LOC: CLSP 10:57
PROVIDERS: PCP Internal Medicine; Referring Provider Internal Medicine Cardiovascular Disease; Visit Provider Internal Medicine Cardiovascular Disease
DX: I25.10 Atherosclerotic heart disease of native coronary artery without angina pectoris (principal); J44.9 Chronic obstructive pulmonary disease, unspecified; I25.82 Chronic total occlusion of coronary artery; G89.4 Chronic pain syndrome; I10 Essential (primary) hypertension; E78.49 Other hyperlipidemia; E03.9 Hypothyroidism, unspecified; K21.9 Gastro-esophageal reflux disease without esophagitis; G47.33 Obstructive sleep apnea (adult) (pediatric); E66.9 Obesity, unspecified; Z79.890 Hormone replacement therapy; Z79.899 Other long term (current) drug therapy; Z95.0 Presence of cardiac pacemaker
CPT/HCPCS: 36415; 80048; 85025; 93458; 99152; 99153; C1760; J7030; Q9967; C1769; C1894

== ENCOUNTER 2021-09-12 13:00 | Outpatient (RCR) | payer MEDICARE, MEDICAID, SELFPAY ==
--- NOTE | 2021-07-13 10:02 | HP.PTEVAL_ITS ---
Patient's Visit Information RAMSES BRADSHAW is a 55 year old F referred to Physical Therapy by EDWIN Muñoz with a diagnosis of L/S pain. Date of Evaluation: 07/12/21 Physical Therapist: Barrington Amato, PT, ATC - Visit Plan Frequency: 2-3x /Week Duration: 4-6 Weeks Plan: B LE strengthening, core stab ex's, balance and proprio, nustep, and HEP. - Subjective Pt reports she has had LBP for a chronic period of time. fPt reports she had a lamictomy performed 4 years ago that did help a little bit. Pt report the pain returned and is now constant. Pt reports this episode began in February and has remained constant since. Pt reports the pain had an insidious onset. Pt notes it started with her hips hurting, and then resulted in posterior leg pain up to this point. Pt notes that prolonged standing and ambulation increases her pain. Pt also notes she is not able to do her dishes or walk to her mailbox the full way secondary to pain. Pt notes she has some relief from sitting, but notes if she sits too long she is in severe pain. Pt reports she had an injection 3 weeks ago that did help to decrease her pain, but her LBP is worse now. Pt reports she has fallen in the past several times. Pt reports she uses a walker at times, but not all the time. 7/10 LBP while at rest, 10/10 at worst (with prolonged ambulation) - Pain LBP Pain Intensity (Out of 10): 7 Pain Intensity Range: 10 - Objective Neuro: B LE sensation is WNL to light touch. B bicipital reflex= 2/3. MMT: B LE's are grossly 4-/5 throughout and painful. ROM: B LE's are WFL. Pt is severely limited with L/S ext. Gait: Pt is able to ambulate approximatly 120 feet until needing to sit and rest. - Balance/Special Test Scores Oswestry Low Back Score: 21 - Goals Goal 1:: Decrease LBP x 50% to aid with sleep Goal Time Frame: 4-6 Weeks Goal 2:: Increase B LE strength x 1 grade to aid with ambulation Goal Time Frame: 4-6 Weeks Goal 3:: Pt will be able to ambulate 300' to aid with community ambulation. Goal Time Frame: 4-6 Weeks Goal 4:: I with HEP Goal Time Frame: 4-6 Weeks - Rehabilitation Potential Physical Therapy Diagnosis: Pt has LBP, L LE radiculopathy, and intolerance for ambulation secondary to degenerative changes in the L/s Rehabilitation Potential: Good - Anticipated Interventions Patient/Client Instruction: Educate patient on: Condition, Plan of Care For the Purpose of:: To improve self management Therapeutic Exercise to Include: Strength training, Endurance training, Active ROM, Dynamic Lumbar Stabilization For the Purpose of:: To decrease pain, To improve muscle performance and motor function, To improve performance and independence with ADL's Thank you for the opportunity to evaluate your patient. For Medicare and Medicare HMO plans, please review the plan of care and approve it. It will need to be FAXED BACK to us at [phone] for Medicare purposes. For Medicare only, by signing this I certify the plan of care. Please let me know if there are questions or concerns regarding this plan of care. Physician Signature: Date:
== END 2021-09-12 19:00 | disposition home or self-care (01) ==
LOC: PT 13:00
PROVIDERS: PCP Internal Medicine; Referring Provider Nurse Practitioner Family; Visit Provider Nurse Practitioner Family
DX: M51.17 Intervertebral disc disorders with radiculopathy, lumbosacral region (principal); M46.1 Sacroiliitis, not elsewhere classified; M53.3 Sacrococcygeal disorders, not elsewhere classified; M96.1 Postlaminectomy syndrome, not elsewhere classified
CPT/HCPCS: 97110; 97161

== ENCOUNTER 2021-10-22 15:28 | Emergency (ER) | payer MEDICARE, MEDICAID, SELFPAY ==
[2021-10-22 15:29] VITALS: BP 156/97; PULSE 71; RESP 18; TEMP 36.2; O2SAT 97; BMI 42.0
[2021-10-22 15:32] VITALS: BP 156/97; PULSE 71; RESP 18; TEMP 36.2; O2SAT 97
--- NOTE | 2021-10-22 17:02 | ED.VIS.BACK ---
HPI History of Present Illness Chief Complaint: Back Informant: patient Limited: uncooperative Onset/Context/Timing Timing: Continuous Worsened by: improves with Nothing Relieved by: Nothing Narrative Narrative: Patient presents with back pain that became worse today. Patient is a poor informant and does not answer questions appropriately. Patient states her lower extremities have been getting swollen. Patient denies any fevers or chills. Patient has a history of chronic back pain. [facility] Medical History Abdominal pain Anemia Anxiety and depression Atherosclerotic heart disease of [place] coronary artery without angina pectoris Bone fracture Chronic lower back pain Chronic pain syndrome COPD (chronic obstructive pulmonary disease) Diarrhea Encounter for screening for malignant neoplasm of lung in current smoker with 30 pack year history or greater Essential (primary) hypertension Familial combined hyperlipidemia Gabapentin overdose GERD (gastroesophageal reflux disease) Greater trochanteric bursitis of left hip Health care maintenance Heart murmur History of pneumonia Hyperlipidemia Hypothyroidism Infected dental carries Intermittent palpitations Low back strain Monomorphic ventricular tachycardia Muscle spasm Neuroendocrine neoplasm of stomach Neuropathy Obesity Obstructive sleep apnea ELOY (obstructive sleep apnea) Osteoarthritis Polycythemia Primary malignant neuroendocrine tumor of stomach PTSD (post-traumatic stress disorder) Sacral contusion Sick sinus syndrome Sinus pause Tobacco dependence syndrome Tobacco use disorder, continuous Vitamin D deficiency Home Medications potassium chloride 20 mEq tablet,extended release(part/cryst) 20 meq PO DAILY #90 tabs 01/08/20 [Rx Last Taken Unknown] duloxetine 60 mg capsule,delayed release 60 mg PO BID 05/26/20 [History Last Taken Unknown] diclofenac sodium 1 % topical gel 4 g topical ONCE PRN joint pain #100 grams 08/05/20 [Rx Last Taken Unknown] buspirone 5 mg tablet 7.5 mg PO TID 03/01/21 [History Last Taken Unknown] rosuvastatin 10 mg tablet 10 mg PO DAILY #90 tabs 08/03/21 [Rx Last Taken Unknown] buprenorphine 5 mcg/hour weekly transdermal patch 1 patch transdermal QWEEK 08/15/21 [History Last Taken Unknown] isosorbide mononitrate 60 mg tablet,extended release 24 hr 60 mg PO QAM #30 tabs 08/20/21 [Rx Last Taken Unknown] baclofen 5 mg tablet 5 mg PO TID PRN muscle spasticity #90 tabs 08/30/21 [Rx Last Taken Unknown] amlodipine 5 mg tablet 5 mg PO DAILY #90 tabs 08/31/21 [Rx Last Taken Unknown] levothyroxine 25 mcg tablet 25 mcg PO DAILY thyroid #90 tabs 08/31/21 [Rx Last Taken Unknown] lisinopril 40 mg tablet 40 mg PO DAILY BP #90 tabs 08/31/21 [Rx Last Taken Unknown] metoprolol tartrate 100 mg tablet 100 mg PO BID blood pressure, heart #180 tabs 08/31/21 [Rx Last Taken Unknown] omeprazole 40 mg capsule,delayed release 40 mg PO DAILY #90 caps 08/31/21 [Rx Last Taken Unknown] promethazine 25 mg tablet 25 mg PO TID PRN Nausea #60 tabs 09/28/21 [Rx Last Taken Unknown] Allergy/AdvReac Type Severity Reaction Status Date / Time latex Allergy Intermediate skin Verified 08/15/21 08:18 irritation aspirin AdvReac Severe Nausea/Vom/ Verified 08/15/21 08:18 Diarrhea erythromycin base AdvReac Severe Vomiting,di Verified 08/15/21 08:18 [Erythromycin Base] arrhea NSAIDS (Non-Steroidal AdvReac Severe Vomiting,di Verified 08/15/21 08:18 Anti-Inflamma arrhea Family History Daughter Multiple sclerosis Father CAD (coronary artery disease) Heart disease Multiple sclerosis Grandfather Heart disease Uncle Heart disease Aunt No problems noted. Sister Colon cancer Mother Hypertension Surgical History history excision neuroendocrine tumor History of appendectomy History of back surgery History of colonoscopy History of elbow surgery History of hysterectomy History of laparotomy History of left heart catheterization (08/17/21) History of resection of stomach Hx of cholecystectomy Presence of permanent cardiac pacemaker (2013) Social History Smoking Status: Current some day smoker tobacco type: cigarettes Tobacco: How many years used: 30 second hand exposure: Yes quit status: has quit before alcohol intake: never substance use type: does not use what type of physical activity do you participate in: none ivnaia/holiness: None seatbelt use: always do you feel safe at home: Yes ROS ROS ED Review of Systems ROS Unobtainable: due to mental status EXAM Physical Exam Const Vital Signs: 10/22/21 15:29 10/22/21 15:32 Temperature 97.1 F L 97.1 F L Temperature Source Temporal Temporal Pulse Rate 71 71 Respiratory Rate 18 18 Blood Pressure 156/97 H 156/97 H Blood Pressure Mean 116 116 Pulse Ox 97 97 Oxygen Delivery Method Room Air Room Air Positive well nourished and well developed General Appearance ED: well developed and NAD HEENT Reports moist mucous membranes Resp normal respiratory effort and clear to auscultation bilaterally Cardio regular rate and regular rhythm GI normal to inspection, nondistended, normoactive bowel sounds and soft to palpation Back/Spine normal to inspection and no thoracic nor lumbar tenderness Neuro no sensory deficits noted Sensorium / Orientation: confused Deep Tendon Reflexes: Rt Patellar (L4): 2+, Lt Patellar (L4): 2+, Rt Ankle (S1): 2+ and Lt Ankle (S1): 2+ Deep Tendon Reflexes Back: Rt Patellar (L4): 2+, Lt Patellar (L4): 2+, Rt Ankle (S1): 2+ and Lt Ankle (S1): 2+ Plantar Reflex: Downgoing: bilateral Skin Skin Narrative: There is some mild erythema and warmth over the lower legs and feet bilaterally, worse on the right. MDM MDM MDM Narrative Medical decision making narrative: CBC shows a slight leukocytosis of 11.1. This was improved from previous results. Comprehensive metabolic profile was essentially within normal limits. Patient refused to provide urinalysis. Patient also refused CT scan of the head. Patient was answering questions more appropriately on reevaluation. Patient was instructed to follow-up with her primary care physician in 5 to 7 days. Patient understood and was agreeable with the plan. All questions were answered. Lab Data Attestation: I reviewed the patient's lab results. Labs: Laboratory Results - last 24 hr 10/22/21 10/22/21 17:40 17:40 WBC 11.1 H RBC 5.04 Hgb 13.9 Hct 44.0 MCV 87.3 MCH 27.6 MCHC 31.6 L RDW Std Deviation 49.0 H RDW Coeff of Ross 15.4 H Plt Count 259 MPV 9.5 Immature Gran % (Auto) 0.500 Neut % (Auto) 68.7 Lymph % (Auto) 22.3 Real % (Auto) 5.8 Eos % (Auto) 2.3 Baso % (Auto) 0.4 Absolute Neuts (auto) 7.6 Absolute Lymphs (auto) 2.47 Nucleated RBC % 0 Sodium 141 Potassium 3.9 Chloride 111 H Carbon Dioxide 25.0 Anion Gap 5 BUN 19 H Creatinine 0.95 Estim Creat Clear Calc 52.30 Est GFR (MDRD) Af Amer 78 Est GFR (MDRD) Non-Af 64 BUN/Creatinine Ratio 19.9 Glucose 107 H Calcium 9.5 Total Bilirubin 0.30 AST 26 ALT 26 Alkaline Phosphatase 112 Total Protein 7.8 Albumin 3.3 Globulin 4.5 H Albumin/Globulin Ratio 0.7 L Discharge Plan Triage Chief Complaint: Back ED Provider: Keon Ramirez Dx/Rx/DC Orders Clinical Impression: Chronic back pain, Essential (primary) hypertension Instructions: ED Chronic Pain Prescriptions: No Action duloxetine 60 mg capsule,delayed release(DR/EC) 60 mg PO BID Rx Instructions: rx by pallative care buprenorphine 5 mcg/hour patch weekly 1 patch transdermal QWEEK buspirone 5 mg tablet 7.5 mg PO TID Rx Instructions: mood potassium chloride 20 mEq tablet,ER particles/crystals 20 meq PO DAILY Qty: 90 2RF diclofenac sodium 1 % gel 4 g topical ONCE MDD 32g/day total PRN (Reason: joint pain) Qty: 100 1RF Rx Instructions: apply to single knee, ankle, foot; for foot includes sole/toes/top of foot rosuvastatin 10 mg tablet 10 mg PO DAILY Qty: 90 3RF isosorbide mononitrate 60 mg tablet extended release 24 hr 60 mg PO QAM Qty: 30 11RF baclofen 5 mg tablet 5 mg PO TID PRN (Reason: muscle spasticity) Qty: 90 0RF amlodipine 5 mg tablet 5 mg PO DAILY Qty: 90 1RF levothyroxine 25 mcg tablet 25 mcg PO DAILY Qty: 90 1RF Rx Instructions: TAKE 1 TABLET BY MOUTH EVERY DAY FOR THYROID lisinopril 40 mg tablet 40 mg PO DAILY Qty: 90 1RF metoprolol tartrate 100 mg tablet 100 mg PO BID Qty: 180 1RF Rx Instructions: TAKE 1 TABLET BY MOUTH TWICE A DAY FOR BLOOD PRESSURE/HEART omeprazole 40 mg capsule,delayed release(DR/EC) 40 mg PO DAILY Qty: 90 1RF Rx Instructions: stomach promethazine 25 mg tablet 25 mg PO TID PRN (Reason: Nausea) Qty: 60 0RF Primary Care Provider: Charla Wadsworth Referrals: Charla Wadsworth MD [Primary Care Provider] - 5-7 Days Disposition Disposition: Home, Self Care
[2021-10-22] MEDS: 0.9% Normal Saline 1,000 ML 1000 ML IV (17:47)
[2021-10-22 17:52] LABS: Absolute Lymphocyte Count 2.47 X10^3/uL (0.83-4.51); Absolute Neutrophil Count 7.6 X10^3/uL (2.0-7.7); Basophil# 0.04 X10^3/uL; Basophil% 0.4 % (0-1); Eosinophil# 0.25 X10^3/uL; Eosinophils% 2.3 % (0-5); Hemoglobin 13.9 g/dL (12.0-15.0); Lymphocyte # 2.47 X10^3/ul (0.83-4.51); Lymphocyte % 22.3 % (19-41); Mean Corp Hgb Conc 31.6 g/dL (32-36); Mean Corpuscular Hgb 27.6 pg (27.0-32.0); Mean Corpuscular Volume 87.3 fL (81-99); Mean Platelet Vol. 9.5 fl (6.2-12.0); Monocyte# 0.64 X10^3/uL; Monocyte% 5.8 % (0-10); NRBC Flagged by Analyzer 0 % (0-5); Neutrophil # 7.61 X10^3/uL (2.7-7.7); Neutrophil % 68.7 % (47-70); Platelet Count 259 K/mm3 (150-450); RBC Distribution Width CV 15.4 % (11.6-14.6); Red Blood Count 5.04 M/mm3 (4.2-5.4); White Blood Count 11.1 K/mm3 (4.4-11.0)
[2021-10-22 18:09] LABS: ALB/GLOB Ratio 0.7 RATIO (0.9-2.4); AST(SGOT) 26 U/L (15-37); Alanine Aminotransfer ALT/SGPT 26 U/L (13-56); Albumin, Serum 3.3 g/dL (3.2-5.0); Alkaline Phosphatase 112 U/L (45-117); Anion Gap 5 (5-15); BUN 19 mg/dL (7-18); BUN/Creat Ratio 19.9 RATIO (10-20); Calcium,Total 9.5 mg/dL (8.5-10.1); Chloride 111 mmol/L (98-107); Creatinine, Serum 0.95 mg/dL (0.55-1.02); EST Glomerular Filtration Rate 64 mL/min (>60); Est Glom Filt Rate - Afr Amer 78 mL/min (>60); Globulin 4.5 g/dL (2.2-4.2); Glucose 107 mg/dL (74-106); Potassium 3.9 mmol/L (3.5-5.1); Protein, Total 7.8 g/dL (6.4-8.2); Sodium Level 141 mmol/L (136-145)
--- NOTE | 2021-10-22 18:51 | ED.RN ---
Patient ambulated to the bathroom with very minimal assist by this nurse and refused to make an attempt to collect an urine sample. Patient then ambulated back to her room and back into bed with standby assist.
[2021-10-22 20:50] VITALS: BP 155/94; BP 155/96
== END 2021-10-22 20:51 | disposition home or self-care (01) ==
PROVIDERS: Emergency Provider Emergency Medicine; PCP Internal Medicine; Visit Provider Emergency Medicine
DX: M54.9 Dorsalgia, unspecified (principal); J44.9 Chronic obstructive pulmonary disease, unspecified; G89.4 Chronic pain syndrome; I10 Essential (primary) hypertension; I25.10 Atherosclerotic heart disease of native coronary artery without angina pectoris; E78.49 Other hyperlipidemia; E03.9 Hypothyroidism, unspecified; K21.9 Gastro-esophageal reflux disease without esophagitis; F32.A Depression, unspecified; F41.9 Anxiety disorder, unspecified; G47.33 Obstructive sleep apnea (adult) (pediatric); E66.9 Obesity, unspecified; F17.210 Nicotine dependence, cigarettes, uncomplicated; Z79.890 Hormone replacement therapy; Z79.899 Other long term (current) drug therapy; Z95.0 Presence of cardiac pacemaker
CPT/HCPCS: 80053; 85025; 96360; 99285; J7030; A4216

== ENCOUNTER 2021-10-23 11:17 | Observation (INO) | payer MEDICARE, MEDICAID, SELFPAY ==
[2021-10-23] VITALS (8 sets, daily range): BP systolic 121–164; BP diastolic 74–101; PULSE 71–97; RESP 18–22; TEMP 36.1–37.3; O2SAT 94–100; BMI 37.8; BMI 36.6
--- NOTE | 2021-10-23 11:33 | CT_ITS ---
STUDY: CT BRAIN WITHOUT CONTRAST REASON FOR EXAM: Female, 56 years old. Head trauma, altered mental status RADIATION DOSAGE (If Supplied By Facility): CTDIvol = ( 44.99 ) mGy, DLP = ( 762.36 ) mGycm TECHNIQUE: Transaxial CT imaging of the brain was performed without administration of intravenous contrast material. Individualized dose optimization techniques were used for this CT. COMPARISON: Head CT dated October 04, 2017 FINDINGS: Mild soft tissue swelling is present over the right anterior aspect of the frontal bone. No fracture or hemorrhagic contusions are present. Normal calvarium. No visualized dense artery sign or sulcal effacement or focal parenchymal edema. There is mild cerebral atrophy with widening of the extra-axial spaces and ventricular dilatation. There are moderate areas of decreased attenuation within the white matter tracts of the supratentorial brain, consistent with microvascular disease changes. Normal basal ganglia and thalami. Normal brainstem. Normal cerebellum. There is no intracranial hemorrhage. There are no findings of an acute ischemic infarction. Normal visualized paranasal sinuses. CT/Brain/Head without Contrast IMPRESSION: 1. Mild soft tissue swelling is present over the right anterior aspect of the frontal bone. No fracture or hemorrhagic contusions are present 2. Chronic ischemic changes of the brain. Electronically Signed: Oleg Weems MD at 12:59 EDT ,
--- NOTE | 2021-10-23 11:34 | EKG12_ITS ---
Test Reason : medical clearance Blood Pressure : / mmHG Vent. Rate : 090 BPM Atrial Rate : 090 BPM P-R Int : 170 ms QRS Dur : 082 ms QT Int : 396 ms P-R-T Axes : 056 041 034 degrees QTc Int : 484 ms Normal sinus rhythm with sinus arrhythmia Nonspecific ST abnormality Prolonged QT Abnormal ECG Confirmed by AIDEN GAUTAM, LEELEE ([id number]), sports editor OTIS RUIZ ([id number]) on 10/25/2021 9:38:51 AM Referred By: Jeremiah Confirmed By:LEELEE WOLFE MD
--- NOTE | 2021-10-23 11:43 | CM.ED ---
SW Note SW advised AKIKO Lim that patient has a care plan. SW remains available if needs arise. Phyllis ORNELAS
--- NOTE | 2021-10-23 12:14 | EX.ED.DYSGE1 ---
HPI History of Present Illness Chief Complaint: Alt LOC Detail of Chief Complaint: Altered mental status Informant: patient Onset/Context/Timing Onset: - (Unknown. Per ER document from yesterday patient was confused) Context: - (Unknown) Timing: Continuous (Presumed) Quality: Unable to determine Location: Per HPI Current Severity: Unable to determine Maximum Severity: Unable to determine Worsened by: Unable to determine Relieved by: Unable to determine Associated Symptoms Associated Symptoms: Unable to determine Narrative Narrative: Patient is a 56-year-old woman who was seen yesterday after fall. She apparently hit her head since there is a contusion noted right side of the forehead. Patient endorsed urinary symptoms. Patient is disoriented. She grimaces but denies pain. She at times will squirm on the examination bed. She is asked if she is in discomfort. She states she feels nauseous. Patient is not a reliable or good informant. Prior similar symptoms: Yes (Possibly started yesterday) Recent Illness/Hospitalization: Yes PFSH [facility] Medical History Abdominal pain Anemia Anxiety and depression Atherosclerotic heart disease of [place] coronary artery without angina pectoris Bone fracture Chronic lower back pain Chronic pain syndrome COPD (chronic obstructive pulmonary disease) Diarrhea Encounter for screening for malignant neoplasm of lung in current smoker with 30 pack year history or greater Essential (primary) hypertension Familial combined hyperlipidemia Gabapentin overdose GERD (gastroesophageal reflux disease) Greater trochanteric bursitis of left hip Health care maintenance Heart murmur History of pneumonia Hyperlipidemia Hypothyroidism Infected dental carries Intermittent palpitations Low back strain Monomorphic ventricular tachycardia Muscle spasm Neuroendocrine neoplasm of stomach Neuropathy Obesity Obstructive sleep apnea ELOY (obstructive sleep apnea) Osteoarthritis Polycythemia Primary malignant neuroendocrine tumor of stomach PTSD (post-traumatic stress disorder) Sacral contusion Sick sinus syndrome Sinus pause Tobacco dependence syndrome Tobacco use disorder, continuous Vitamin D deficiency Home Medications potassium chloride 20 mEq tablet,extended release(part/cryst) 20 meq PO DAILY #90 tabs 01/08/20 [Rx Last Taken Unknown] duloxetine 60 mg capsule,delayed release 60 mg PO BID 05/26/20 [History Last Taken Unknown] diclofenac sodium 1 % topical gel 4 g topical ONCE PRN joint pain #100 grams 08/05/20 [Rx Last Taken Unknown] buspirone 5 mg tablet 7.5 mg PO TID 03/01/21 [History Last Taken Unknown] rosuvastatin 10 mg tablet 10 mg PO DAILY #90 tabs 08/03/21 [Rx Last Taken Unknown] buprenorphine 5 mcg/hour weekly transdermal patch 1 patch transdermal QWEEK 08/15/21 [History Last Taken Unknown] isosorbide mononitrate 60 mg tablet,extended release 24 hr 60 mg PO QAM #30 tabs 08/20/21 [Rx Last Taken Unknown] baclofen 5 mg tablet 5 mg PO TID PRN muscle spasticity #90 tabs 08/30/21 [Rx Last Taken Unknown] amlodipine 5 mg tablet 5 mg PO DAILY #90 tabs 08/31/21 [Rx Last Taken Unknown] levothyroxine 25 mcg tablet 25 mcg PO DAILY thyroid #90 tabs 08/31/21 [Rx Last Taken Unknown] lisinopril 40 mg tablet 40 mg PO DAILY BP #90 tabs 08/31/21 [Rx Last Taken Unknown] metoprolol tartrate 100 mg tablet 100 mg PO BID blood pressure, heart #180 tabs 08/31/21 [Rx Last Taken Unknown] omeprazole 40 mg capsule,delayed release 40 mg PO DAILY #90 caps 08/31/21 [Rx Last Taken Unknown] promethazine 25 mg tablet 25 mg PO TID PRN Nausea #60 tabs 09/28/21 [Rx Last Taken Unknown] Allergy/AdvReac Type Severity Reaction Status Date / Time latex Allergy Intermediate skin Verified 10/23/21 11:34 irritation aspirin AdvReac Severe Nausea/Vom/ Verified 10/23/21 11:34 Diarrhea erythromycin base AdvReac Severe Vomiting,di Verified 10/23/21 11:34 [Erythromycin Base] arrhea NSAIDS (Non-Steroidal AdvReac Severe Vomiting,di Verified 10/23/21 11:34 Anti-Inflamma arrhea Family History Daughter Multiple sclerosis Father CAD (coronary artery disease) Heart disease Multiple sclerosis Grandfather Heart disease Uncle Heart disease Aunt No problems noted. Sister Colon cancer Mother Hypertension Surgical History history excision neuroendocrine tumor History of appendectomy History of back surgery History of colonoscopy History of elbow surgery History of hysterectomy History of laparotomy History of left heart catheterization (08/17/21) History of resection of stomach Hx of cholecystectomy Presence of permanent cardiac pacemaker (2013) Social History Smoking Status: Current some day smoker tobacco type: cigarettes Tobacco: How many years used: 30 second hand exposure: Yes quit status: has quit before alcohol intake: never substance use type: does not use what type of physical activity do you participate in: none ivania/pentecostal: None seatbelt use: always do you feel safe at home: Yes ROS ROS ED Review of Systems ROS Unobtainable: due to mental status EXAM Physical Exam Const Vital Signs: 10/23/21 11:22 10/23/21 11:28 10/23/21 13:54 Temperature 98.6 F 98.6 F 96.9 F L Temperature Source Oral Oral Temporal Pulse Rate 97 89 90 Respiratory Rate 20 H 20 H 22 H Blood Pressure 159/101 H 159/101 H 135/85 H Blood Pressure Mean 120 120 101 Pulse Ox 94 97 97 Oxygen Delivery Method Room Air Room Air Room Air Positive well nourished, well developed, obese and unkempt General Appearance ED: unkempt, well developed and diaphoretic; Negative for cyanotic, NAD or pallor Nutritional Appearance: obese HEENT Reports dry mucous membranes HEENT Narrative: There is evidence of trauma to the right side of the forehead. There is pain to palpation. There is no hemotympanum. There is no septal deviation hematoma noted. trauma and tenderness Mouth ED: Yes dry mucous membranes Mouth: dry mucous membranes Eyes PERRL and EOMs intact bilaterally Eyes Narrative: Gaze is conjugate. There is no nystagmus. General Eye ED: Negative for pale conjunctiva or scleral icterus Neck no lymphadenopathy, supple and no JVD Neck Narrative: Trachea is midline. Chest Wall inspection of chest normal and palpation of chest normal Resp normal respiratory effort and clear to auscultation bilaterally Cardio regular rate, regular rhythm, S1 normal heart sound and S2 normal heart sound Palpation: Negative for palpable S3 or palpable S4 GI normal to inspection, nondistended, normoactive bowel sounds, non-tender, non-distended and no masses; Negative for hepatosplenomegaly Palpation: soft Back/Spine no CVA tenderness Cervical Spine: Negative for cervical spine tenderness Thoracic Spine / Upper Back: Negative for thoracic spinal tenderness Lumbar Spine / Lower Back: Negative for lumbar spinal tenderness Extremity normal to inspection General Extremety ED: Negative for edema General Extremity: Negative for edema Neuro No oriented x3 Sensorium / Orientation: orientation impaired; Negative for alert Psych Negative for mental status grossly normal Psych Narrative: Unable to determine Appearance: unkempt Skin no rashes or lesions noted and No no wounds General Skin Exam: Negative for jaundice or pallor MDM MDM MDM Narrative Medical decision making narrative: Patient with altered mental status. She does report urinary symptoms will rule out urinary tract infection. There is also evidence of head trauma. Because she complains of headache will obtain CT to rule out intracranial process. Notes from yesterday were reviewed. We will compare laboratory results. Since patient has a care plan we will add tox screen. Since patient is on levothyroxine and has not had a TSH in 2 years a TSH level was added. Patient to be observation [facility] Lab Data Attestation: I reviewed the patient's lab results. Lab results narrative: White count and is unremarkable. There is a slight shift with no bandemia. Electrolyte panel is unremarkable. Lactate. Urine reveals 1+ bacteria however there is no pyuria. Macro is positive for protein, blood and leukoesterase and negative for nitrites. Labs: Laboratory Results - last 24 hr 10/23/21 10/23/21 10/23/21 12:19 12:19 12:19 WBC 10.8 RBC 4.91 Hgb 13.6 Hct 42.0 MCV 85.5 MCH 27.7 MCHC 32.4 RDW Std Deviation 47.8 H RDW Coeff of Ross 15.2 H Plt Count 251 MPV 9.4 Immature Gran % (Auto) 0.500 Neut % (Auto) 79.1 H Lymph % (Auto) 14.3 L [place] % (Auto) 5.5 Eos % (Auto) 0.3 Baso % (Auto) 0.3 Absolute Neuts (auto) 8.5 H Absolute Lymphs (auto) 1.54 Nucleated RBC % 0 Sodium 143 Potassium 3.8 Chloride 113 H Carbon Dioxide 23.0 Anion Gap 7 BUN 12 Creatinine 0.73 Estim Creat Clear Calc 68.06 Est GFR (MDRD) Af Amer 106 Est GFR (MDRD) Non-Af 87 BUN/Creatinine Ratio 16.4 Glucose 118 H Lactic Acid 1.1 Calcium 9.7 Urine Color Urine Clarity Urine pH Ur Specific [place] Urine Protein Urine Glucose (UA) Urine Ketones Urine Occult Blood Urine Nitrite Urine Bilirubin Urine Urobilinogen Ur Leukocyte Esterase Urine RBC Urine WBC Ur Squamous Epith Cells Urine Bacteria Urine Mucus 10/23/21 12:19 WBC RBC Hgb Hct MCV MCH MCHC RDW Std Deviation RDW Coeff of [place] Plt Count MPV Immature Gran % (Auto) Neut % (Auto) Lymph % (Auto) [place] % (Auto) Eos % (Auto) Baso % (Auto) Absolute Neuts (auto) Absolute Lymphs (auto) Nucleated RBC % Sodium Potassium Chloride Carbon Dioxide Anion Gap BUN Creatinine Estim Creat Clear Calc Est GFR (MDRD) Af Amer Est GFR (MDRD) Non-Af BUN/Creatinine Ratio Glucose Lactic Acid Calcium Urine Color Yellow Urine Clarity Clear Urine pH 5.0 Ur Specific [place] 1.020 Urine Protein 15 H Urine Glucose (UA) Normal Urine Ketones 50 H Urine Occult Blood 25 H Urine Nitrite Negative Urine Bilirubin Negative Urine Urobilinogen Normal Ur Leukocyte Esterase 25 H Urine RBC 0-5 SEEN Urine WBC 0-5 SEEN Ur Squamous Epith Cells 0-5 SEEN Urine Bacteria 1+ Urine Mucus 0 SEEN Radiography Diagnostic Testing: Clinical Impression(s) from Imaging Studies Brain CT 10/23/21 11:33 IMPRESSION: 1. Mild soft tissue swelling is present over the right anterior aspect of the frontal bone. No fracture or hemorrhagic contusions are present 2. Chronic ischemic changes of the brain. Electronically Signed: Oleg Weems MD at 12:59 EDT Reading Location ID and State: [address] [place] [address] , Service support , EKG Initial EKG: Attestation: I personally reviewed and interpreted this EKG as follows: Interpretation: Sinus Rhythm (Rate is 90 with respiratory variation. There is artifact which computer is reading as an ossific ST wave abnormality. OR intervals 170 ms. Cures duration 82 ms. Acute T duration is 396 with a QTC of 484. This is prolonged. The EKG is not normal.) Discharge Plan Dx/Rx/DC Orders Clinical Impression: Encephalopathy acute, Bacteria in urine, CHI (closed head injury) Disposition Disposition: [facility] Capacity Capacity Assessment Tool Can the patient make a choice & communicate that choice?: No Can the patient understand benefits, risks and alternatives?: No Can the patient make a logical, rational choice?: No Is the choice the patient makes consistent w/ their values?: Unable to Determine Is there an impending, emergent risk to the patient?: Unable to Determine (Patient is encephalopathic. Without treatment or hospitalization mortality rate is 39%) Does the patient have an Advance Directive?: Unable to Determine Is there a Surrogate Available?: No i.e. HCPOA: Unable to Determine i.e. close relative (spouse, child, parent, sibling)?: Unable to Determine
[2021-10-23 12:29] LABS: Mucous, Urine 0 SEEN /hpf (<or=2+)
[2021-10-23 12:33] LABS: Absolute Lymphocyte Count 1.54 X10^3/uL (0.83-4.51); Absolute Neutrophil Count 8.5 X10^3/uL (2.0-7.7); Basophil# 0.03 X10^3/uL; Basophil% 0.3 % (0-1); Eosinophil# 0.03 X10^3/uL; Eosinophils% 0.3 % (0-5); Glucose, Dipstick Normal (Normal); Hemoglobin 13.6 g/dL (12.0-15.0); Ketone-Dipstick 50 mg/dl (Negative); Leukocyte Esterase-Dipstick 25 /ul (Negative); Lymphocyte # 1.54 X10^3/ul (0.83-4.51); Lymphocyte % 14.3 % (19-41); Mean Corp Hgb Conc 32.4 g/dL (32-36); Mean Corpuscular Hgb 27.7 pg (27.0-32.0); Mean Corpuscular Volume 85.5 fL (81-99); Mean Platelet Vol. 9.4 fl (6.2-12.0); Monocyte# 0.59 X10^3/uL; Monocyte% 5.5 % (0-10); NRBC Flagged by Analyzer 0 % (0-5); Neutrophil # 8.53 X10^3/uL (2.7-7.7); Neutrophil % 79.1 % (47-70); Nitrite-Dipstick Negative (Negative); Occult Blood-Urine 25 /ul (Negative); Platelet Count 251 K/mm3 (150-450); Protein-Dipstick 15 mg/dl (Negative); RBC Distribution Width CV 15.2 % (11.6-14.6); RBC Distribution Width SD 47.8 fl (35.1-43.9); Red Blood Count 4.91 M/mm3 (4.2-5.4); Urine Bilirubin Dipstick Negative (Negative); Urine Urobilinogen Normal (Normal); White Blood Count 10.8 K/mm3 (4.4-11.0)
[2021-10-23 12:39] LABS: Color, Urine Yellow (Yellow); Urine Clarity Clear (Clear)
[2021-10-23 12:44] LABS: Squamous Epithelial Cells - UA 0-5 SEEN /hpf (5-10)
[2021-10-23 12:46] LABS: Bacteria 1+ /hpf (None Seen); Red Blood Cells-Urine 0-5 SEEN /hpf (0-5); White Blood Cells 0-5 SEEN /hpf (0-5)
[2021-10-23 12:48] LABS: Anion Gap 7 (5-15); BUN 12 mg/dL (7-18); BUN/Creat Ratio 16.4 RATIO (10-20); Calcium,Total 9.7 mg/dL (8.5-10.1); Chloride 113 mmol/L (98-107); Creatinine, Serum 0.73 mg/dL (0.55-1.02); EST Glomerular Filtration Rate 87 mL/min (>60); Est Glom Filt Rate - Afr Amer 106 mL/min (>60); Estimated Creatinine Clearance 68.06 ml/min; Glucose 118 mg/dL (74-106); Potassium 3.8 mmol/L (3.5-5.1); Sodium Level 143 mmol/L (136-145)
[2021-10-23 12:57] LABS: Lactic Acid 1.1 mmol/L (0.4-1.9)
[2021-10-23] MEDS: Ceftriaxone 1 GM/50 ML BAG IV (14:19)
--- NOTE | 2021-10-23 14:25 | NURSING ---
MED SURG OBS SIMA ENCEPHALOPATHY, BACTERIURIA, HX OF HYPERTHROIDISM
[2021-10-23 14:41] LABS: Thyroid Stim Hormone (TSH) 1.39 uIU/mL (0.358-3.74)
--- NOTE | 2021-10-23 15:31 | NURSING ---
in to talk with patient: pt clarified she wishes to continue to be a NO on directory. secretaryinformed.
[2021-10-23] MEDS: 0.9% Saline Lock 10 ML Syringe IV (15:35)
[2021-10-23] MEDS: Lactated Ringers 1,000 ML 75 ML IV (15:35)
[2021-10-23] MEDS: Ondansetron 4 MG/2 ML Vial IV (15:39)
--- NOTE | 2021-10-23 16:00 | PCM.HP.STD ---
HPI - General General Date of Admission: 10/23/21 Date of Service: 10/23/21 Chief Complaint: Confusion HPI Narrative RAMSES BRADSHAW, is a 56 F who presented to [facility] on 10/23/2021 for altered mental status. The patient evidently was seen here yesterday after a fall. Overall work-up yesterday was unremarkable and the patient refused to provide a urinalysis or CT of the head. She initially appeared to be confused but on reevaluation was answering questions more appropriately and she was discharged home. Evidently today squad was called secondary to worsening confusion. Is unclear who called the squad. The patient states that the EMS brought her here but is unable to give me information as to why. Per discussion with nursing staff in the emergency department the patient has a long history of here of narcotic seeking behavior and substance abuse previously. I question the patient's with regards to taking more medication of which she is prescribed or any illicit substances and she denied both. She was aware that she was at [facility] but was unable to give me any orientation related to time. She did know her name and birthdate sheets. She had no other complaints upon my exam. She did squirm extensively during our evaluation and grimaced periodically but when asked what was bothering her she stated nothing. Vital signs on presentation showed temperature of 98.6, heart rate of 97, blood pressure of 159/101 with a repeat of 135/85, respiratory rate anywhere from 18-20 and oxygen saturation was 94 to 97% on room air. Her CBC is unremarkable. BMP is unremarkable. Her lactic acid was 1.1. TSH was 1.39. Her UA showed specific gravity 1.02 indicating possibly mild dehydration with urine ketones at 50 but was negative for nitrite white cells and only had 1+ bacteria. Based on her UA do not feel she has a urinary tract infection. CT of her head was performed today given yesterday's events and showed only mild soft tissue swelling over the right anterior aspect of the frontal bone. She does have a small ecchymotic area here on physical exam. It also showed chronic ischemic changes of the brain. She was treated with ceftriaxone x1 dose in the emergency department as there was some concern that possibly she had a UTI on presentation however as noted above the UA does not appear consistent with U TI. Cultures were sent. [facility] Medical History Abdominal pain Anemia Anxiety and depression Atherosclerotic heart disease of [place] coronary artery without angina pectoris Bone fracture Chronic lower back pain Chronic pain syndrome COPD (chronic obstructive pulmonary disease) Diarrhea Encounter for screening for malignant neoplasm of lung in current smoker with 30 pack year history or greater Essential (primary) hypertension Familial combined hyperlipidemia Gabapentin overdose GERD (gastroesophageal reflux disease) Greater trochanteric bursitis of left hip Health care maintenance Heart murmur History of pneumonia Hyperlipidemia Hypothyroidism Infected dental carries Intermittent palpitations Low back strain Monomorphic ventricular tachycardia Muscle spasm Neuroendocrine neoplasm of stomach Neuropathy Obesity Obstructive sleep apnea ELOY (obstructive sleep apnea) Osteoarthritis Polycythemia Primary malignant neuroendocrine tumor of stomach PTSD (post-traumatic stress disorder) Sacral contusion Sick sinus syndrome Sinus pause Tobacco dependence syndrome Tobacco use disorder, continuous Vitamin D deficiency Home Medications potassium chloride 20 mEq tablet,extended release(part/cryst) 20 meq PO DAILY #90 tabs 01/08/20 [Rx Last Taken Unknown] duloxetine 60 mg capsule,delayed release 60 mg PO BID 05/26/20 [History Last Taken Unknown] diclofenac sodium 1 % topical gel 4 g topical ONCE PRN joint pain #100 grams 08/05/20 [Rx Last Taken Unknown] buspirone 5 mg tablet 7.5 mg PO TID 03/01/21 [History Last Taken Unknown] rosuvastatin 10 mg tablet 10 mg PO DAILY #90 tabs 08/03/21 [Rx Last Taken Unknown] buprenorphine 5 mcg/hour weekly transdermal patch 1 patch transdermal QWEEK 08/15/21 [History Last Taken Unknown] isosorbide mononitrate 60 mg tablet,extended release 24 hr 60 mg PO QAM #30 tabs 08/20/21 [Rx Last Taken Unknown] baclofen 5 mg tablet 5 mg PO TID PRN muscle spasticity #90 tabs 08/30/21 [Rx Last Taken Unknown] amlodipine 5 mg tablet 5 mg PO DAILY #90 tabs 08/31/21 [Rx Last Taken Unknown] levothyroxine 25 mcg tablet 25 mcg PO DAILY thyroid #90 tabs 08/31/21 [Rx Last Taken Unknown] lisinopril 40 mg tablet 40 mg PO DAILY BP #90 tabs 08/31/21 [Rx Last Taken Unknown] metoprolol tartrate 100 mg tablet 100 mg PO BID blood pressure, heart #180 tabs 08/31/21 [Rx Last Taken Unknown] omeprazole 40 mg capsule,delayed release 40 mg PO DAILY #90 caps 08/31/21 [Rx Last Taken Unknown] promethazine 25 mg tablet 25 mg PO TID PRN Nausea #60 tabs 09/28/21 [Rx Last Taken Unknown] Allergy/AdvReac Type Severity Reaction Status Date / Time latex Allergy Intermediate skin Verified 10/23/21 11:34 irritation aspirin AdvReac Severe Nausea/Vom/ Verified 10/23/21 11:34 Diarrhea erythromycin base AdvReac Severe Vomiting,di Verified 10/23/21 11:34 [Erythromycin Base] arrhea NSAIDS (Non-Steroidal AdvReac Severe Vomiting,di Verified 10/23/21 11:34 Anti-Inflamma arrhea Family History Daughter Multiple sclerosis Father CAD (coronary artery disease) Heart disease Multiple sclerosis Grandfather Heart disease Uncle Heart disease Aunt No problems noted. Sister Colon cancer Mother Hypertension Surgical History history excision neuroendocrine tumor History of appendectomy History of back surgery History of colonoscopy History of elbow surgery History of hysterectomy History of laparotomy History of left heart catheterization (08/17/21) History of resection of stomach Hx of cholecystectomy Presence of permanent cardiac pacemaker (2013) Social History Smoking Status: Current some day smoker tobacco type: cigarettes Tobacco: How many years used: 30 second hand exposure: Yes quit status: has quit before alcohol intake: never substance use type: does not use what type of physical activity do you participate in: none ivania/islam: None seatbelt use: always do you feel safe at home: Yes ROS ROS Narrative Review of systems was extremely difficult secondary to patient's mental status. She was awake but not answering questions appropriately on a consistent basis and unable to really give any meaningful information with regards to her systems review. Review of Systems ROS Unobtainable: due to encephalopathy Vital Signs Vital Signs Vital Signs: 10/23/21 11:22 10/23/21 11:28 10/23/21 13:54 Temperature 98.6 F 98.6 F 96.9 F L Temperature Source Oral Oral Temporal Pulse Rate 97 89 90 Respiratory Rate 20 H 20 H 22 H Blood Pressure 159/101 H 159/101 H 135/85 H Blood Pressure Mean 120 120 101 Pulse Ox 94 97 97 Oxygen Delivery Method Room Air Room Air Room Air 10/23/21 14:55 Temperature 97.1 F L Temperature Source Temporal Pulse Rate 71 Respiratory Rate 18 Blood Pressure 135/85 H Blood Pressure Mean 101 Pulse Ox 95 Oxygen Delivery Method Room Air Weight Weight: 92.215 kg Body Mass Index (BMI) 36.6 Physical Exam Const alert, healthy appearing and well nourished Constitutional Narrative: Middle-aged white female lying in bed, appears much older than stated age, oriented to self and location only, unable to give any meaningful history, appears nontoxic, followed commands well for the exam General Appearance: cooperative HEENT normocephalic, head/scalp atraumatic, hearing grossly normal bilaterally and moist oral mucous membranes HEENT Narrative: Upper dentures in place, Mallampati 2-3, no thrush Eyes PERRL, EOMs intact bilaterally and conjunctivae normal Eyes Narrative: No scleral icterus Neck no lymphadenopathy, supple, no JVD and no carotid bruits Neck Narrative: Trachea midline, no thyroid enlargement, neck is short and thick Resp normal respiratory effort, no retractions, no use of accessory muscles and clear to auscultation bilaterally Auscultation: Negative for crackles, rales, rhonchi or wheezes Cardio regular rate, regular rhythm, S1 normal heart sound, S2 normal heart sound, no murmurs, no rub, no gallops, no clicks and no JVD GI normal to inspection, nondistended, normoactive bowel sounds, soft to palpation, non-tender and non-distended; Negative for hepatosplenomegaly Extremity Extremity Narrative: Bilateral lower extremity tenderness with palpation, no cyanosis clubbing or edema noted Skin Skin Narrative: Buprenorphine patch on arm, ecchymotic area over right forehead, right lower extremity is slightly red Neuro CN's II-XII intact bilaterally, moves all extremities and no focal motor deficits Neuro Narrative: Alert to location and self Sensorium / Orientation: awake, alert, oriented to person and oriented to place Speech: speech normal Psych Psych Narrative: Patient's affect is very strange, poor attention, thought process seems to be somewhat tangential, eye contact is poor. Results Lab / Micro Data Result Diagrams: 10/23/21 12:19 10/23/21 12:19 Labs: Laboratory Results - last 24 hr 10/23/21 12:19: WBC 10.8, RBC 4.91, Hgb 13.6, Hct 42.0, MCV 85.5, MCH 27.7, MCHC 32.4, RDW Std Deviation 47.8 H, RDW Coeff of Ross 15.2 H, Plt Count 251, MPV 9.4, Immature Gran % (Auto) 0.500, Neut % (Auto) 79.1 H, Lymph % (Auto) 14.3 L, [place] % (Auto) 5.5, Eos % (Auto) 0.3, Baso % (Auto) 0.3, Absolute Neuts (auto) 8.5 H, Absolute Lymphs (auto) 1.54, Nucleated RBC % 0 10/23/21 12:19: Sodium 143, Potassium 3.8, Chloride 113 H, Carbon Dioxide 23.0, Anion Gap 7, BUN 12, Creatinine 0.73, Estim Creat Clear Calc 68.06, Est GFR (MDRD) Af Amer 106, Est GFR (MDRD) Non-Af 87, BUN/Creatinine Ratio 16.4, Glucose 118 H, Calcium 9.7 10/23/21 12:19: Lactic Acid 1.1 10/23/21 12:19: Urine Color Yellow, Urine Clarity Clear, Urine pH 5.0, Ur Specific Waddy 1.020, Urine Protein 15 H, Urine Glucose (UA) Normal, Urine Ketones 50 H, Urine Occult Blood 25 H, Urine Nitrite Negative, Urine Bilirubin Negative, Urine Urobilinogen Normal, Ur Leukocyte Esterase 25 H, Urine RBC 0-5 SEEN, Urine WBC 0-5 SEEN, Ur Squamous Epith Cells 0-5 SEEN, Urine Bacteria 1+, Urine Mucus 0 SEEN 10/23/21 12:19: TSH 1.[address] 10/23/21 11:33 IMPRESSION: 1. Mild soft tissue swelling is present over the right anterior aspect of the frontal bone. No fracture or hemorrhagic contusions are present 2. Chronic ischemic changes of the brain. Electronically Signed: Oleg Weems MD at 12:59 EDT Reading Location ID and State: [address] [place] [address] , Service support , Assessment & Plan Assessment/Plan (1) Encephalopathy acute: (2) Bacteria in urine: (3) CHI (closed head injury): PLAN: Plan Acute toxic/metabolic encephalopathy -Organic work-up is negative thus far -Toxicology screen is pending -Patient evidently per discussion with nursing staff the emergency department is well-known to them and has substance abuse history -Hold home baclofen and Phenergan -We will continue buprenorphine patch to avoid withdrawal -I highly suspect overall that this is likely related to something ingested -We will run IV fluids at 75 cc/h -Avoid sedating medications given presentation Bacteriuria -Ceftriaxone x1 dose given in the emergency department -UA does not appear to be consistent with infection -Culture is pending -We will hold further antibiotics at this time Close head injury status post fall -CT of the head is unremarkable -Patient with external ecchymosis -Monitor clinically -Patient could have postconcussive disorder CAD/HTN/HPL -Recent cardiac catheterization done on 08/17/2021 showed mild to moderate disease in the LAD with a totally occluded RCA and [id number] collaterals for which medical therapy was recommended -Patient has aspirin allergy -Can you home isosorbide mononitrate -Continue home lisinopril -Continue home oral -Continue home potassium -Continue home rosuvastatin GERD -Continue home omeprazole Hypothyroidism -Continue home levothyroxine -TSH was within normal limits on admission Chronic low back pain -We will continue home buprenorphine patch but hold baclofen -Patient follows with pain management at Dr. Frank's office -Avoid further sedating medications ELOY -Patient is unable to tell me if she wears a CPAP at night -We will have to ask when she is more mentally capable of answering these questions -We will order CPAP if she is compliant at baseline Tobacco abuse -Recommend cessation -May need to offer nicotine replacement therapy once patient is able to tell us how much she is smoking -Monitor for symptoms of withdrawal DVT prophylaxis -Lovenox -SCDs CODE STATUS -full code but unverified secondary to mental status on admission Charges/Coding Visit Charges Inpatient E&M: 77691 Init Hosp L3
--- NOTE | 2021-10-23 16:20 | NURSING ---
pt does not want to answer health history questions upon admission, states I just really don't feel up to it right now. Home med list reviewed by ER nurse. pt laying in bed and frequently moaning but denies pain when asked. she is very hyperalert and restless. medicated for nausea and pt denies other complaints at this time.
--- NOTE | 2021-10-23 18:08 | NURSING ---
pt refused SCDs at this time due to leg pain
--- NOTE | 2021-10-23 18:17 | RAD_ITS ---
EXAM: XR RIGHT ANKLE COMPLETE, 3 OR MORE VIEWS CLINICAL INDICATION: pain and swelling TECHNIQUE: Frontal, lateral and oblique views of the right ankle. This report was created using [employer] report generation technology. COMPARISON: None. FINDINGS: BONES/JOINTS: Calcifications inferior to the lateral malleolus likely related to old injury. No acute fracture. No subluxation. Normal alignment. Preservation of the joint space. No sclerotic or destructive changes observed. SOFT TISSUES: Mild soft tissue swelling predominantly laterally. No radiopaque foreign body. RAD/Ankle min 3 Views IMPRESSION: 1. Mild soft tissue swelling predominantly laterally. 2. No acute fracture. 3. Calcifications inferior to the lateral malleolus likely related to old injury. Electronically Signed: Axel Obregon MD at 4:03 EDT ,
[2021-10-23] MEDS: busPIRone 5 MG Tablet 7.5 MG PO (21:50)
[2021-10-23] MEDS: Metoprolol Tartrate 100 MG Tablet PO (21:50)
[2021-10-23] MEDS: DULoxetine Hcl 60 MG Capsule PO (21:50)
[2021-10-23 22:53] LABS: Amphetamine Urine VISTA NEGATIVE (<1000 ng/mL); Barbiturate Urine VISTA NEGATIVE (< 200 ng/mL); Benzodiazepine Urine VISTA NEGATIVE (< 200 ng/mL); Cocaine Urine VISTA NEGATIVE (< 300 ng/mL); Ecstacy Urine VISTA NEGATIVE (< 500 ng/mL); Methadone Urine VISTA NEGATIVE (< 300 ng/mL); PCP Urine VISTA NEGATIVE (< 25 ng/mL); THC Urine VISTA NEGATIVE (< 50 ng/mL); Vista UDS pH Range 6
[2021-10-23] MEDS: Haloperidol Lactate 5 MG/ML Vial 4 MG IM (23:23)
[2021-10-24 02:00] VITALS: BP 167/88; PULSE 68; RESP 18; TEMP 37.1; O2SAT 96
[2021-10-24] MEDS: Nystatin Powder 15gm Bottle 1 APPLIC TOPICAL ×4 (02:57→21:13)
[2021-10-24] MEDS: busPIRone 5 MG Tablet 7.5 MG PO ×3 (05:00→21:09)
[2021-10-24] MEDS: Levothyroxine 25 MCG TABLET PO (05:01)
[2021-10-24 06:24] LABS: Absolute Lymphocyte Count 2.19 X10^3/uL (0.83-4.51); Absolute Neutrophil Count 8.5 X10^3/uL (2.0-7.7); Basophil# 0.03 X10^3/uL; Basophil% 0.3 % (0-1); Eosinophil# 0.06 X10^3/uL; Eosinophils% 0.5 % (0-5); Hematocrit 42.1 % (37-47); Hemoglobin 13.6 g/dL (12.0-15.0); Lymphocyte # 2.19 X10^3/ul (0.83-4.51); Lymphocyte % 18.8 % (19-41); Mean Corp Hgb Conc 32.3 g/dL (32-36); Mean Corpuscular Hgb 27.8 pg (27.0-32.0); Mean Corpuscular Volume 86.1 fL (81-99); Mean Platelet Vol. 9.4 fl (6.2-12.0); Monocyte# 0.75 X10^3/uL; Monocyte% 6.4 % (0-10); NRBC Flagged by Analyzer 0 % (0-5); Neutrophil # 8.54 X10^3/uL (2.7-7.7); Neutrophil % 73.4 % (47-70); Platelet Count 264 K/mm3 (150-450); RBC Distribution Width SD 47.4 fl (35.1-43.9); Red Blood Count 4.89 M/mm3 (4.2-5.4); White Blood Count 11.6 K/mm3 (4.4-11.0)
[2021-10-24 06:50] LABS: ALB/GLOB Ratio 0.7 RATIO (0.9-2.4); AST(SGOT) 28 U/L (15-37); Alanine Aminotransfer ALT/SGPT 23 U/L (13-56); Albumin, Serum 3.2 g/dL (3.2-5.0); Alkaline Phosphatase 107 U/L (45-117); Anion Gap 6 (5-15); BUN 10 mg/dL (7-18); BUN/Creat Ratio 13.7 RATIO (10-20); Calcium,Total 9.4 mg/dL (8.5-10.1); Chloride 109 mmol/L (98-107); Creatinine, Serum 0.73 mg/dL (0.55-1.02); EST Glomerular Filtration Rate 88 mL/min (>60); Est Glom Filt Rate - Afr Amer 106 mL/min (>60); Estimated Creatinine Clearance 68.06 ml/min; Globulin 4.4 g/dL (2.2-4.2); Glucose 97 mg/dL (74-106); Potassium 3.5 mmol/L (3.5-5.1); Protein, Total 7.6 g/dL (6.4-8.2); Sodium Level 141 mmol/L (136-145)
[2021-10-24 07:07] LABS: Phosphorus 3.1 mg/dL (2.5-4.9)
[2021-10-24 09:00] VITALS: BP 166/82; PULSE 84; RESP 18; TEMP 36.3; O2SAT 98
[2021-10-24] MEDS: Potassium Chloride Oral Tablet 20 MEQ PO (09:15)
[2021-10-24 09:16] VITALS: BP 166/82; PULSE 71
[2021-10-24] MEDS: amLODIPine 5 MG Tablet PO (09:16)
[2021-10-24] MEDS: Metoprolol Tartrate 100 MG Tablet PO ×2 (09:16→21:10)
[2021-10-24] MEDS: Pantoprazole Sodium 40 MG Tablet PO (09:16)
[2021-10-24] MEDS: DULoxetine Hcl 60 MG Capsule PO ×2 (09:16→21:10)
[2021-10-24] MEDS: Isosorbide Mononitrate 60 MG Tablet PO (09:16)
[2021-10-24] MEDS: Lisinopril 40 MG Tablet PO (09:17)
[2021-10-24] MEDS: Enoxaparin 40 MG/0.4 ML Syringe SC (09:17)
[2021-10-24] MEDS: Atorvastatin Calcium 20 MG Tablet PO (09:17)
--- NOTE | 2021-10-24 10:25 | CASEMGMT ---
RN TAWANNA Face to Face with patient for initial transition planning/care coordination assessment. RN CM introduced self and role at [facility]. Patient lying in bed, alert and sightly confused at times. Patient willing to participate in assessment and is able to answer all questions appropriately. Care providers, pharmacy, and demographics verified with increased time to answer. Patient wishes to discharge home, will monitor for needs for discharge pending progress with therapy. Patient states she has no further needs or concerns at this time. CM to follow for discharge planning needs that may arise. PCP: Ananth Specialists: Ludmila, gas turbine powerplant mechanic; Josemanuel, pain; patient states she sees counselor from out of town but could not recall name. Preferred [facility]acy: [facility] Insurance: [employer] GERDA SWEET Prescription Benefit: yes Living Will/HPOA: none LNOK: daughter Living Arrangements: Patient states she lives alone in a first floor apartment with no steps to enter. Patient states she was independent at home prior to hospitalization Transportation: friend, [employer] DME/HHC: Patient states she has shower chair, grab bars, cpap at home. Patient states she has had [facility] HHC in the past. Disposition Plan: TBD anticipate home with possible HHC pending course of treatment. Yanely CHRISTIANSON, RN, CM
[2021-10-24 13:57] VITALS: BP 132/70; PULSE 59; RESP 18; TEMP 36.8; O2SAT 98
--- NOTE | 2021-10-24 14:00 | CASEMGMT ---
AKIKO STACY in to discuss [place] form with patient. Pt is currently A&O x3. AKIKO STACY explained [place] form, patient voiced understanding. Pt signed form and filed in chart. Pt provided with a copy of signed [place] form. Patient had no further questions or concerns at this time.
--- NOTE | 2021-10-24 16:15 | CASEMGMT ---
Social Work SW spoke with pt's physician. Pt admitted with altered mental status. Physician states that medical workup is clear however, concerns for pt's mental health continue and physician requesting assessment by crisis for psychiatric placement. Phone call placed to Ct at Crisis and information provided. Ct states someone will be in later tonight to evaluate pt. Nursing and physician updated. SHALOM Tabor
--- NOTE | 2021-10-24 16:47 | CASEMGMT ---
Social Work Note SW received call from [facility] stating they spoke with Ginger RAUSCH and received referral. [facility] states they need clinicals faxed to them at [phone]. SW faxed clinicals to [facility] and wrote on fax coversheet to call [facility] with any additional questions and provided [facility] direct number. Plan: Crisis to evaluate pt Yanely Ang CORE SUCKER, CELL ROOM OPERATOR
--- NOTE | 2021-10-24 17:24 | PN.HOSP_ITS ---
Subjective Subjective Was seen and examined today, she stated that she came to the emergency room because of right ankle pain, when I confronted her that she was here due to confusion, she had a back complaint to her right ankle pain. When I talk with the patient and ask her what year it was she could not give me an answer, she could not give me an answer as to where she was today, she also cannot give me an answer of who she was. Finally, I asked patient what planet she was on and she says she did not know. Patient was able to tell me she had a counselor in [facility] and she was able to tell me who her family practitioner was in town here. Patient does not appear in any distress at this time, she smiles and giggles at times when I ask her questions. Objective Data Objective Data Vital Signs: Vital Signs Temp Pulse Resp BP Pulse Ox O2 Del Method 98.3 F 59 L 18 132/70 H 98 Room Air 10/24/21 13:57 10/24/21 13:57 10/24/21 13:57 10/24/21 13:57 10/24/21 13:57 10/24/21 15:00 Oxygen Delivery Method Room Air Weight: 92.215 kg Body Mass Index (BMI) 36.6 Intake & Output: Intake and Output for Last 24 Hours 10/22/21 10/23/21 10/24/21 23:59 23:59 23:59 Intake Total 170 / 470 2049 Balance 170 / 470 2049 Lab / Micro Data Result Diagrams: 10/24/21 06:00 10/24/21 06:00 Labs: Laboratory Results - last 24 hr 10/23/21 12:19: Magnesium 2.0 10/23/21 22:00: Urine Opiates Screen NEGATIVE, Urine Methadone Screen NEGATIVE, Ur Barbiturates Screen NEGATIVE, Ur Phencyclidine Scrn NEGATIVE, Ur Amphetamines Screen NEGATIVE, MDMA (Ecstasy) Screen NEGATIVE, U Benzodiazepines Scrn NEGATIVE, Urine Cocaine Screen NEGATIVE, U Cannabinoids Screen NEGATIVE, Ur Drug Screen Comment 10/24/21 06:00: WBC 11.6 H, RBC 4.89, Hgb 13.6, Hct 42.1, MCV 86.1, MCH 27.8, MCHC 32.3, RDW Std Deviation 47.4 H, RDW Coeff of Ross 15.0 H, Plt Count 264, MPV 9.4, Immature Gran % (Auto) 0.600, Neut % (Auto) 73.4 H, Lymph % (Auto) 18.8 L, [place] % (Auto) 6.4, Eos % (Auto) 0.5, Baso % (Auto) 0.3, Absolute Neuts (auto) 8.5 H, Absolute Lymphs (auto) 2.19, Nucleated RBC % 0 10/24/21 06:00: Sodium 141, Potassium 3.5, Chloride 109 H, Carbon Dioxide 26.0, Anion Gap 6, BUN 10, Creatinine 0.73, Estim Creat Clear Calc 68.06, Est GFR (MDRD) Af Amer 106, Est GFR (MDRD) Non-Af 88, BUN/Creatinine Ratio 13.7, Glucose 97, Calcium 9.4, Total Bilirubin 0.50, AST 28, ALT 23, Alkaline Phosphatase 107, Total Protein 7.6, Albumin 3.2, Globulin 4.4 H, Albumin/Globulin Ratio 0.7 L 10/24/21 06:00: Phosphorus 3.1 Micro: Microbiology 10/23/21 12:19 Urine, Catheterized Urine Culture - Preliminary Culture exhibits no growth. Radiography Diagnostic Testing: Radiology Impression Ankle X-Ray 10/23/21 18:17 IMPRESSION: 1. Mild soft tissue swelling predominantly laterally. 2. No acute fracture. 3. Calcifications inferior to the lateral malleolus likely related to old injury. Electronically Signed: Axle Obregon MD at 4:03 EDT , Physical Exam Const alert and no apparent distress Constitutional Narrative: Patient appears her stated age General Appearance: cooperative, well kempt and well developed Orientation / Consciousness: awake and confused HEENT normocephalic, head/scalp atraumatic and moist oral mucous membranes Eyes PERRL, EOMs intact bilaterally and conjunctivae normal Neck supple, no JVD and thyroid normal General: trachea midline Resp normal respiratory effort, no retractions, no use of accessory muscles and clear to auscultation bilaterally Auscultation: Negative for rales, rhonchi or wheezes Cardio regular rate, regular rhythm, S1 normal heart sound, S2 normal heart sound, no murmurs, no rub and no gallops GI normal to inspection, nondistended, normoactive bowel sounds, soft to palpation, non-tender and non-distended Extremity no clubbing, cyanosis or edema Skin no rashes or lesions noted General Skin Exam: no breakdown Neuro oriented x3, CN's II-XII intact bilaterally, no focal motor deficits and no sensory deficits noted Neuro Narrative: Patient is confused Sensorium / Orientation: awake and alert Speech: speech normal Psych Psych Narrative: Patient was confused Assessment & Plan Assessment/Plan (1) Encephalopathy acute: PLAN: Plan 1. Encephalopathy-type unknown, I strongly suspect this could be toxic in nature although the patient's tox screen was unremarkable. I will order an ammonia level on the patient, patient will be seen by crisis, she may need transfer to a psychiatric facility. There may be an element of malingering with the patient. #2 coronary artery disease-stable at this time-patient had a cardiac catheterization done on 08/17/2021 which showed an occlusion of the right coronary artery which was chronic in nature and there was evidence of collateral flow at the time, there is also diffuse coronary disease in the mid LAD which was nonocclusive, she also had nonocclusive disease in the circumflex artery. Left main was angiographically normal. Continue present medications. #3 chronic depression-patient is on Cymbalta #4 essential hypertension-patient will remain on her present medication #5 hypothyroidism-patient is on Synthroid. Charges/Coding Visit Charges OBSV E&M: 18137 Subsequent observation care L2
[2021-10-24 18:51] LABS: Ammonia < 10.0 umol/L (11-32)
--- NOTE | 2021-10-24 20:54 | NURSING ---
Patient talking to Crisis on the phone.
[2021-10-24 21:05] VITALS: BP 181/76; PULSE 64; RESP 20; TEMP 37; O2SAT 94
[2021-10-24 21:10] VITALS: BP 181/76; PULSE 64
[2021-10-24] MEDS: 0.9% Saline Lock 10 ML Syringe IV (21:12)
[2021-10-24] MEDS: Acetaminophen 325 MG Tablet 650 MG PO (21:18)
[2021-10-25] VITALS (8 sets, daily range): BP systolic 164–181; BP diastolic 88–100; PULSE 55–85; RESP 18–20; TEMP 36.7–36.9; O2SAT 95–98
[2021-10-25] MEDS: Methocarbamol 750 MG Tablet PO (00:09)
[2021-10-25] MEDS: hydrALAZINE 20 MG/ML Vial 10 MG IV (00:53)
[2021-10-25] MEDS: 0.9% Saline Lock 10 ML Syringe IV (00:56)
[2021-10-25] MEDS: LORazepam 1 MG Tablet PO ×2 (03:45→11:48)
[2021-10-25] MEDS: Levothyroxine 25 MCG TABLET PO (03:52)
[2021-10-25] MEDS: busPIRone 5 MG Tablet 7.5 MG PO (03:52)
[2021-10-25] MEDS: Nystatin Powder 15gm Bottle 1 APPLIC TOPICAL (03:54)
[2021-10-25] MEDS: Isosorbide Mononitrate 60 MG Tablet PO (08:12)
[2021-10-25] MEDS: Metoprolol Tartrate 100 MG Tablet PO (08:12)
[2021-10-25] MEDS: Enoxaparin 40 MG/0.4 ML Syringe SC (08:13)
[2021-10-25] MEDS: DULoxetine Hcl 60 MG Capsule PO (08:13)
[2021-10-25] MEDS: Lisinopril 40 MG Tablet PO (08:14)
[2021-10-25] MEDS: Pantoprazole Sodium 40 MG Tablet PO (08:14)
[2021-10-25] MEDS: Atorvastatin Calcium 20 MG Tablet PO (08:14)
[2021-10-25] MEDS: amLODIPine 5 MG Tablet PO (08:15)
[2021-10-25] MEDS: Potassium Chloride Oral Tablet 20 MEQ PO (08:15)
--- NOTE | 2021-10-25 10:03 | CASEMGMT ---
Social Work Phone call placed to Crisis and spoke with Fallon who states Kia spoke with pt last evening and safety plan was made. Pt will not be hospitalized in psychiatric facility. MARCELINO requested documentation be faxed to [facility] for pt medical record. Fallon confirms she will fax assessment. SHALOM Tabor
--- NOTE | 2021-10-25 10:47 | CASEMGMT ---
Social Work SW in to meet with pt and assess mental health/status. Pt sitting in chair beside the bed watching television and turned it off when SW arrived. SW introduced self and role at the hospital. Pt agreeable to talking with this SW, although she appeared suspicious. Pt presented with dilated pupils, rarely blinking and poor eye contact. During conversation pt would stare off to the ceiling and often took what seemed to be longer than necessary to answer questions, as if her thinking was impaired, however, Pt was able to answer questions with satisfactory answers the appeared to be accurate for the most part. SW asked questions pertaining to pt's reason for coming to the hospital and pt reported she is unsure why she was confused/had altered state of mind at the time of discharge. SW asked pt about any MH services she receives in the community and Pt was able to share she sees a Nurse Practitioner, Luly Gaffney, whom she believes works at [facility] [employer] in [place], every three months. Pt shared she has diagnoses of PTSD, Anxiety and Depression. Pt gave permission for SW to contact Luly Gaffney to determine/set up follow up appointment upon discharge from [facility]. Pt also stated she believes her next appointment is sometime in November. Pt discussed home life stating she has two daughters who help her when they can, two sets of twin grandchildren and a friend/neighbor, Katerine, who helps her with household tasks often. Pt confirmed she feels safe at home and as if she has enough support. Pt denies any further concerns. SW called [facility] to confirm pt information regarding MH services. [facility] denied any pt's with a matching name. MARCELINO completed an internet search and found Pt's nurse Practitioner, Luly Gaffney, is located with [id number] in [facility]. They would not share any information over the phone without PEG but did confirm they have a nurse practitioner by the name of Luly Gaffney. SHALOM Stratton
--- NOTE | 2021-10-25 12:00 | DCINST_ITS ---
Discharge Instructions Diet Discharge Diet: No restrictions Activity Discharge Activity: Return to Normal Activity Weight Bearing Status: Full weight bearing Follow Up Care Test Results: Test results from this visit will be discussed in further detail at your follow- up appointment, if applicable. Discharge Plan Admission Admit Date/Time: 10/23/21 14:17 Primary Reason for Your Visit: confusion Attending Provider: Alexander Krueger Primary Care Provider: Charla Wadsworth Consulting Providers: Laura Alberto Discharge Orders/Prescriptions Prescriptions: New hydrochlorothiazide 12.5 mg tablet 12.5 mg PO DAILY Qty: 30 0RF Continued duloxetine 60 mg capsule,delayed release(DR/EC) 60 mg PO BID Rx [facility] 5 mcg/hour patch weekly 1 patch transdermal QWEEK buspirone 5 mg tablet 7.5 mg PO TID Rx Instructions: mood lorazepam 1 mg tablet 1 mg PO TID PRN (Reason: Anxiety) Label Comments: TAKE 1 TABLET BY ORAL ROUTE UP TO 3 TIMES A DAY NEEDED FOR ANXIETY potassium chloride 20 mEq tablet,ER particles/crystals 20 meq PO DAILY Qty: 90 2RF diclofenac sodium 1 % gel 4 g topical ONCE MDD 32g/day total PRN (Reason: joint pain) Qty: 100 1RF Rx Instructions: apply to single knee, ankle, foot; for foot includes sole/toes/top of foot rosuvastatin 10 mg tablet 10 mg PO DAILY Qty: 90 3RF isosorbide mononitrate 60 mg tablet extended release 24 hr 60 mg PO QAM Qty: 30 11RF baclofen 5 mg tablet 5 mg PO TID PRN (Reason: muscle spasticity) Qty: 90 0RF amlodipine 5 mg tablet 5 mg PO DAILY Qty: 90 1RF levothyroxine 25 mcg tablet 25 mcg PO DAILY Qty: 90 1RF Rx Instructions: TAKE 1 TABLET BY MOUTH EVERY DAY FOR THYROID lisinopril 40 mg tablet 40 mg PO DAILY Qty: 90 1RF metoprolol tartrate 100 mg tablet 100 mg PO BID Qty: 180 1RF Rx Instructions: TAKE 1 TABLET BY MOUTH TWICE A DAY FOR BLOOD PRESSURE/HEART omeprazole 40 mg capsule,delayed release(DR/EC) 40 mg PO DAILY Qty: 90 1RF Rx Instructions: stomach promethazine 25 mg tablet 25 mg PO TID PRN (Reason: Nausea) Qty: 60 0RF Referrals / Follow Up: Luly Gaffney [Other] (Follow up with Luly Gaffney at [facility]) Charla Wdasworth MD [Primary Care Provider] - Within 2 Weeks Disposition Disposition (needs filled in before D/C Order can be placed): Home, Self Care
--- NOTE | 2021-10-25 12:16 | DS.PCM_ITS ---
Providers Date of Admission: 10/23/21 Date of Discharge: 10/25/21 Primary Care Physician: Dr. Charla Wadsworth MD Reason For Visit: TOXIC METABOLIC ENCEPHALOPATHY Diagnosis Discharge Diagnosis (1) Encephalopathy acute: Status: Acute Code(s): G93.40 - Encephalopathy, unspecified Plan 1. Encephalopathy-type unknown #2 coronary artery disease-stable at this time-patient had a cardiac catheterization done on 08/17/2021 which showed an occlusion of the right coronary artery which was chronic in nature and there was evidence of collateral flow at the time, there is also diffuse coronary disease in the mid LAD which was nonocclusive, she also had nonocclusive disease in the circumflex artery. Left main was angiographically normal. Continue present medications. #3 chronic depression-patient is on Cymbalta #4 essential hypertension-patient will remain on her present medication #5 hypothyroidism-patient is on Synthroid. Medications at Discharge Home Medications potassium chloride 20 mEq tablet,extended release(part/cryst) 20 meq PO DAILY #90 tabs 01/08/20 duloxetine 60 mg capsule,delayed release 60 mg PO BID 05/26/20 diclofenac sodium 1 % topical gel 4 g topical ONCE PRN joint pain #100 grams 08/05/20 buspirone 5 mg tablet 7.5 mg PO TID 03/01/21 rosuvastatin 10 mg tablet 10 mg PO DAILY #90 tabs 08/03/21 buprenorphine 5 mcg/hour weekly transdermal patch 1 patch transdermal QWEEK 08/15/21 isosorbide mononitrate 60 mg tablet,extended release 24 hr 60 mg PO QAM #30 tabs 08/20/21 baclofen 5 mg tablet 5 mg PO TID PRN muscle spasticity #90 tabs 08/30/21 amlodipine 5 mg tablet 5 mg PO DAILY #90 tabs 08/31/21 levothyroxine 25 mcg tablet 25 mcg PO DAILY thyroid #90 tabs 08/31/21 lisinopril 40 mg tablet 40 mg PO DAILY BP #90 tabs 08/31/21 metoprolol tartrate 100 mg tablet 100 mg PO BID blood pressure, heart #180 tabs 08/31/21 omeprazole 40 mg capsule,delayed release 40 mg PO DAILY #90 caps 08/31/21 promethazine 25 mg tablet 25 mg PO TID PRN Nausea #60 tabs 09/28/21 hydrochlorothiazide 12.5 mg tablet 12.5 mg PO DAILY #30 tabs 10/25/21 lorazepam 1 mg tablet 1 mg PO TID PRN Anxiety 10/25/21 Hospital Course Operations None Procedures None Summary of Care Provided Minutes Spent on Discharge: 31 Hospital Course: Patient was seen in the emergency room at [facility] after being brought in by squad due to complaints by her neighbors of altered mental status. At the time of examination in the ER, patient appeared confused, patient's stated she knew she was in [facility] but she did not know why she was brought to the hospital. Labs obtained in the emergency room showed an unremarkable CBC, BMP was also unremarkable. UA was negative for nitrites and white cells but had +[address] of the head was performed which showed only mild soft tissue swelling of the right anterior aspect of the frontal bone. Patient was initially treated for a possible cystitis with IV Rocephin, this examiner did not feel that she had a urinary tract infection however. Patient remained confused on 10/24/2021, she told this examiner that she did not know what planet she was on. Crisis interviewed the patient on 10/25/2021 and did not feel that she was a threat to herself and did not feel she was confused. Upon reexamination by this examiner on 10/25/2021, patient appeared alert and did not appear confused. I felt that she was safe for discharge home. On 10/25/2021, patient was seen and examined: On examination she appeared in good health and spirits, she does not appear to be in any distress. Vital signs as documented. Skin warm and dry and without overt rashes. Neck without JVD, thyroid appears normal, trachea is midline, neck is supple. Lungs clear, normal air movement was noted. Heart exam notable for regular rhythm, normal sounds and absence of murmurs, rubs or gallops. Abdomen unremarkable and without evidence of organomegaly, masses, or abdominal aortic enlargement, bowel sounds are present in all 4 quadrants, no abdominal tenderness was noted. Extremities nonedematous, no cyanosis was noted, no clubbing was noted. Neuro: Cranial nerves II through XII are grossly intact, no focal motor deficits were noted, sensation to light touch and pinprick is intact, motor exam 5/5 throughout. Psych: Patient is alert and oriented x3, she does not appear anxious or depressed, she does not appear agitated. Patient was felt to be stable for discharge on 10/25/2021, the etiology of the patient's encephalopathy was unknown. Weight / BMI Weight Weight: 92.215 kg Body Mass Index (BMI) 36.6 ABG / Lab / Microbiology Data Result Diagrams: 10/24/21 06:00 10/24/21 06:00 Laboratory: Laboratory Results - last 24 hr 10/24/21 18:17: Ammonia < 10.0 L Microbiology: Microbiology 10/23/21 12:19 Urine, Catheterized Urine Culture - Final Lactobacillus sp. D/C Instructions Discharge Diet: No restrictions Weight Bearing Status: Full weight bearing Meaningful Use Info Meaningful Use Diagnoses (Choose all that apply): None applicable Discharge Plan Admission Admit Date/Time: 10/23/21 14:17 Primary Reason for Your Visit: confusion Attending Provider: Alexander Krueger Primary Care Provider: Charla Wadsworth Consulting Providers: Laura Alberto Discharge Orders/Prescriptions Prescriptions: New hydrochlorothiazide 12.5 mg tablet 12.5 mg PO DAILY Qty: 30 0RF Continued duloxetine 60 mg capsule,delayed release(DR/EC) 60 mg PO BID Rx Instructions: rx by [facility] buprenorphine 5 mcg/hour patch weekly 1 patch transdermal QWEEK buspirone 5 mg tablet 7.5 mg PO TID Rx Instructions: mood lorazepam 1 mg tablet 1 mg PO TID PRN (Reason: Anxiety) Label Comments: TAKE 1 TABLET BY ORAL ROUTE UP TO 3 TIMES A DAY NEEDED FOR ANXIETY potassium chloride 20 mEq tablet,ER particles/crystals 20 meq PO DAILY Qty: 90 2RF diclofenac sodium 1 % gel 4 g topical ONCE MDD 32g/day total PRN (Reason: joint pain) Qty: 100 1RF Rx Instructions: apply to single knee, ankle, foot; for foot includes sole/toes/top of foot rosuvastatin 10 mg tablet 10 mg PO DAILY Qty: 90 3RF isosorbide mononitrate 60 mg tablet extended release 24 hr 60 mg PO QAM Qty: 30 11RF baclofen 5 mg tablet 5 mg PO TID PRN (Reason: muscle spasticity) Qty: 90 0RF amlodipine 5 mg tablet 5 mg PO DAILY Qty: 90 1RF levothyroxine 25 mcg tablet 25 mcg PO DAILY Qty: 90 1RF Rx Instructions: TAKE 1 TABLET BY MOUTH EVERY DAY FOR THYROID lisinopril 40 mg tablet 40 mg PO DAILY Qty: 90 1RF metoprolol tartrate 100 mg tablet 100 mg PO BID Qty: 180 1RF Rx Instructions: TAKE 1 TABLET BY MOUTH TWICE A DAY FOR BLOOD PRESSURE/HEART omeprazole 40 mg capsule,delayed release(DR/EC) 40 mg PO DAILY Qty: 90 1RF Rx Instructions: stomach promethazine 25 mg tablet 25 mg PO TID PRN (Reason: Nausea) Qty: 60 0RF Referrals / Follow Up: Luly Gaffney [Other] (Follow up with Luly Gaffney at [facility]) Charla Wadsworth MD [Primary Care Provider] - Within 2 Weeks Disposition Disposition (needs filled in before D/C Order can be placed): Home, Self Care Charges/Coding Visit Charges OBSV E&M: 77133 Observation care discharge
== END 2021-10-25 13:45 | disposition home or self-care (01) ==
LOC: ED 14:02 → MS3 14:31
PROVIDERS: Hospitalist; Admitting Provider Internal Medicine; Emergency Provider Emergency Medicine; PCP Internal Medicine; Visit Provider Internal Medicine
DX: G93.40 Encephalopathy, unspecified (principal); J44.9 Chronic obstructive pulmonary disease, unspecified; S00.93XD Contusion of unspecified part of head, subsequent encounter; F17.210 Nicotine dependence, cigarettes, uncomplicated; I10 Essential (primary) hypertension; M25.571 Pain in right ankle and joints of right foot; E78.49 Other hyperlipidemia; I25.10 Atherosclerotic heart disease of native coronary artery without angina pectoris; F43.10 Post-traumatic stress disorder, unspecified; F32.A Depression, unspecified; Z79.899 Other long term (current) drug therapy; E03.9 Hypothyroidism, unspecified; Z79.890 Hormone replacement therapy; K21.9 Gastro-esophageal reflux disease without esophagitis; G47.33 Obstructive sleep apnea (adult) (pediatric); W19.XXXD Unspecified fall, subsequent encounter; F41.9 Anxiety disorder, unspecified; G89.4 Chronic pain syndrome; E66.9 Obesity, unspecified; Z68.36 Body mass index [BMI] 36.0-36.9, adult
CPT/HCPCS: 36415; 70450; 73610; 80048; 80053; 80307; 81001; 82140; 83605; 83735; 84100; 84443; 85025; 87086; 87088; 93005; 96361; 96365; 96372; 96375; 97161; 97166; 97802; 99218; 99251; 99285; J7050; J7120; P9612; A4216; G0378; G0463; J2405

== ENCOUNTER → 2021-11-22 | Outpatient (CLI) | payer MEDICARE, MEDICAID, SELFPAY ==
--- NOTE | 2021-11-22 07:58 | CT_ITS ---
STUDY: CT ABDOMEN AND PELVIS WITH CONTRAST REASON FOR EXAM: Female, 56 years old. F/U GASTRIC NEUROENDOCRINE TUMOR RESECTED 2017 RADIATION DOSAGE (If Supplied By Facility): CTDIvol = ( 19.66 ) mGy, DLP = ( 1398.10 ) mGycm TECHNIQUE: Transaxial images were obtained from the dome of the diaphragm to the symphysis pubis without oral contrast. IV 100mL Isovue-300 was administered. Sagittal and coronal images were reconstructed. Individualized dose optimization techniques were used for this CT. COMPARISON: Comparison is made with prior study dated 11/22/2020. FINDINGS: The visualized lung bases are unremarkable. A dual-chamber pacemaker is seen. Normal liver. There are surgical clips in the gallbladder fossa consistent with a prior cholecystectomy. Normal spleen. Normal pancreas. Normal bilateral adrenal glands. Normal right kidney. Normal left kidney. The patient is status post partial surgical resection of the distal body of the stomach. Normal small intestine. There are scattered colonic diverticula consistent with diverticulosis. The appendix is visualized and appears normal. There is scattered atherosclerotic calcification of the abdominal aorta, without a demonstrated aneurysm. Normal inferior vena cava. There is borderline retroperitoneal lymphadenopathy with enlarged nodes no greater than 10mm in the short axis diameter. Normal urinary bladder. There is absence of the uterus consistent with a prior hysterectomy. Normal abdominal wall. The patient is status post laminectomy and interpedicular screw and maura fixation at the L4-L5 level. CT/Abdomen/Pelvis W IV Cont ONLY IMPRESSION: Stable examination. Electronically Signed: Ming Roberts MD at 10:03 EDT ,
== END | disposition home or self-care (01) ==
PROVIDERS: PCP Internal Medicine; Referring Provider Internal Medicine Hematology & Oncology; Visit Provider Internal Medicine Hematology & Oncology
DX: C7A.8 Other malignant neuroendocrine tumors (principal)
CPT/HCPCS: 74177; Q9967

== ENCOUNTER → 2022-01-22 | Outpatient (CLI) | payer MEDICARE, MEDICAID, SELFPAY ==
--- NOTE | 2022-01-22 15:08 | CT_ITS ---
STUDY: LOW DOSE CT LUNG CANCER SCREENING REASON FOR EXAM: Female, 56 years old. Lung cancer screening -- 30 pk yr hx; current smoker; asymptomatic RADIATION DOSAGE (If Supplied By Facility): CTDIvol = ( 4.02 ) mGy, DLP = ( 137.43 ) mGycm TECHNIQUE: No contrast was administered. Low dose technique was utilized (average mAS-38 and kVp 120). 1.25 mm axial source images with a slice interval of 1.25-mm were reconstructed in lung windows. 2.5 mm axial source images with a slice interval of 2.5-mm were reconstructed in lung windows. 5.0 mm axial source images with a slice interval of 5.0-mm were reconstructed in soft tissue windows. COMPARISON: Comparison is made with prior study dated 12/27/2020. NODULES: No suspicious nodules are seen. Emphysema: Findings suggestive of scarring in the right middle lobe. This is unchanged. Endobronchial lesion: None Aorta: Atherosclerotic plaque formation of the aortic arch. CORONARY ARTERIES: Coronary artery calcification is seen. Heart: A left-sided dual-chamber pacemaker is seen. Pulmonary artery: Unremarkable Mediastinal nodes: Small benign-appearing mediastinal lymph nodes. Other chest and abdominal findings: CT/Low Dose CT Lung Screening IMPRESSION: Lung-RADS category 2 - Continue annual screening with LDCT in 12 months. IMPORTANT NOTES FOR USE: ACR Lung-RADS Version 1.1 Assessment Categories Release Date: 2018 Category: Coded 0-4 bases on nodule(s) with highest degree of suspicion. Negative screen is defined as categories 1 and 2; a positive screen is defined as categories 3 and 4. Category 3 and 4A nodules that are unchanged on interval CT should be coded as category 2, and individuals returned to screening in 12 months. Category 4X: Category 3 or 4 nodules with additional imaging findings that increase the suspicion of lung cancer, such as spiculation, GGN that doubles in size in 1 year, enlarged lymph notes, etc. Category Modifiers: S (significant finding unrelated to lung cancer) Electronically Signed: Ming Roberts MD at 15:32 EST ,
== END | disposition home or self-care (01) ==
LOC: CT 15:03
PROVIDERS: PCP Internal Medicine; Referring Provider Nurse Practitioner Family; Visit Provider Nurse Practitioner Family
DX: Z12.2 Encounter for screening for malignant neoplasm of respiratory organs (principal); Z87.891 Personal history of nicotine dependence
CPT/HCPCS: 71271

== ENCOUNTER → 2022-05-16 | Outpatient (CLI) | payer MEDICARE, MEDICAID, SELFPAY ==
[2022-05-16 12:53] LABS: ALB/GLOB Ratio 0.7 RATIO (0.9-2.4); AST(SGOT) 13 U/L (15-37); Alanine Aminotransfer ALT/SGPT 16 U/L (13-56); Albumin, Serum 3.3 g/dL (3.2-5.0); Alkaline Phosphatase 121 U/L (45-117); BUN 14 mg/dL (7-18); BUN/Creat Ratio 11.6 RATIO (10-20); Bilirubin, Direct 0.09 mg/dL (0.00-0.30); Calcium,Total 9.7 mg/dL (8.5-10.1); Cholesterol 156 mg/dL (200); Creatinine, Serum 1.21 mg/dL (0.55-1.02); EST Glomerular Filtration Rate 49 mL/min (>60); Est Glom Filt Rate - Afr Amer 59 mL/min (>60); Globulin 4.6 g/dL (2.2-4.2); Glucose 134 mg/dL (74-106); Protein, Total 7.9 g/dL (6.4-8.2); Triglycerides 193 mg/dL
[2022-05-16 12:54] LABS: Absolute Lymphocyte Count 3.61 X10^3/uL (0.83-4.51); Absolute Neutrophil Count 10.4 X10^3/uL (2.0-7.7); Anion Gap 3 (5-15); Basophil# 0.05 X10^3/uL; Basophil% 0.3 % (0-1); Chloride 106 mmol/L (98-107); Eosinophil# 0.19 X10^3/uL; Eosinophils% 1.2 % (0-5); Hematocrit 45.9 % (37-47); Hemoglobin 14.5 g/dL (12.0-15.0); High Density Lipoprotein 30 mg/dL; Lymphocyte # 3.61 X10^3/ul (0.83-4.51); Lymphocyte % 23.7 % (19-41); Mean Corp Hgb Conc 31.6 g/dL (32-36); Mean Corpuscular Hgb 27.9 pg (27.0-32.0); Mean Corpuscular Volume 88.4 fL (81-99); Mean Platelet Vol. 9.6 fl (6.2-12.0); Monocyte# 0.94 X10^3/uL; Monocyte% 6.2 % (0-10); NRBC Flagged by Analyzer 0 % (0-5); Neutrophil # 10.37 X10^3/uL (2.7-7.7); Neutrophil % 68.1 % (47-70); Platelet Count 329 K/mm3 (150-450); RBC Distribution Width CV 16.2 % (11.6-14.6); RBC Distribution Width SD 52.3 fl (35.1-43.9); Red Blood Count 5.19 M/mm3 (4.2-5.4); Sodium Level 138 mmol/L (136-145); Very Low Density Lipoprotein 39 mg/dL (5-40); White Blood Count 15.2 K/mm3 (4.4-11.0)
== END | disposition home or self-care (01) ==
LOC: BIMLAB 09:00
PROVIDERS: PCP Internal Medicine; Referring Provider Internal Medicine; Visit Provider Internal Medicine
DX: E78.5 Hyperlipidemia, unspecified (principal); I49.5 Sick sinus syndrome; I10 Essential (primary) hypertension; F17.209 Nicotine dependence, unspecified, with unspecified nicotine-induced disorders; R07.9 Chest pain, unspecified
CPT/HCPCS: 36415; 80053; 80061; 82248; 85025

== ENCOUNTER → 2022-10-09 | Outpatient (CLI) | payer MEDICARE, MEDICAID, SELFPAY ==
--- NOTE | 2022-10-09 12:28 | BI_ITS ---
MAMMOGRAPHY - BILATERAL SCREENING REASON FOR EXAM: Female, 57 years old. Routine annual screening examination. PERTINENT HISTORY: Non-contributory. TECHNIQUE: Digital bilateral breast lucy (3D mammographic acquisition) in the CC and MLO projections. 2-D mediolateral oblique (MLO) and craniocaudad (CC) views of both breasts were obtained. CAD: Full Field Digital Mammography with Computer Added Detection was performed. COMPARISON: Comparison is made with prior study dated February 27, 2021 and February 05, 2020. FINDINGS: Breast Composition: There are scattered areas of fibroglandular density. There are no dominant masses or suspicious calcifications. A battery pack of a pacemaker is seen in the left axilla. Stable appearance of the left axillary lymph nodes. No other significant abnormalities are identified. There has been no significant change since the prior study. BI/SCRN MAMM (CAD)W/LUCY BILAT IMPRESSION: Stable bilateral screening mammogram. Yearly follow-up mammogram recommended. (A) ASSESSMENT CATEGORY: BIRADS Category 2: Benign. A letter regarding these results will be sent to the patient by the facility within 30 days. Approximately 10% of breast cancers are not detected by mammography. A normal mammogram should not delay biopsy of a clinically suspicious abnormality. [id number] Electronically Signed: Ming Roberts MD at 15:32 EDT ,
--- NOTE | 2022-10-09 12:50 | BD_ITS ---
STUDY: DUAL ENERGY X-RAY ABSORPTIOMETRY / DXA REASON FOR EXAM: Female, 57 years old. Post Menopausal TECHNIQUE: Bone Mineral Density (BMD) measurements of lumbar spine and bilateral hips were obtained. COMPARISON: None. FINDINGS: Lumbar Spine (L1-L4): g/cm2 (0.830) / T-score (-1.4) / Z-score (-0.2) Findings are suggestive of osteopenia with a low fracture risk. Left Femur Total: g/cm2 (0.710) / T-score (-1.9) / Z-score (-1.1) Left Femoral Neck: g/cm2 (0.634) / T-score (-1.9) / Z-score (-0.8) Right Femur Total: g/cm2 (0.677) / T-score (-2.2) / Z-score (-1.4) Right Femoral Neck: g/cm2 (0.588) / T-score (-2.4) / Z-score (-1.2) BD/Dexa Bone Density Study IMPRESSION: The patient is considered osteopenic as outlined below according to World Nate Organization (WHO) criteria with a high fracture risk. Reference Information: The T-score is the number of standard deviations above or below the standard which is normal for young adults at their peak bone mineral density. The World Health Organization (WHO) interprets the T-scores as follows: Above -1 Normal bone density Between -1 and -2.5 Osteopenia Equal to / or below -2.5 Osteoporosis As a practical clinical guideline, osteopenia may be graded as follows: Mild -1 through -1.5 Moderate -1.6 through -2.0 Severe -2.1 through -2.4 The Z-score is the number of standard deviations above or below age-matched controls. A Z-score of less than -1.5 would be considered abnormal. References: 1. NIH Osteoporosis and Related Bone Diseases www osteo.org 2. International Society for Clinical Densitometry www iscd.org 3. National Osteoporosis Foundation www nof.org Electronically Signed: Ming Roberts MD at 7:44 EDT ,
== END | disposition home or self-care (01) ==
PROVIDERS: PCP Internal Medicine; Referring Provider Internal Medicine; Visit Provider Internal Medicine
DX: Z12.31 Encounter for screening mammogram for malignant neoplasm of breast (principal); Z78.0 Asymptomatic menopausal state; M85.80 Other specified disorders of bone density and structure, unspecified site
CPT/HCPCS: 77063; 77067; 77080

== ENCOUNTER 2022-11-13 21:04 | Emergency (ER) | payer MEDICARE, MEDICAID, SELFPAY ==
[2022-11-13 21:04] VITALS: BP 127/90; PULSE 86; RESP 15; TEMP 36.4; O2SAT 97; BMI 33.3
--- NOTE | 2022-11-13 21:20 | RAD_ITS ---
STUDY: X-RAY - PELVIS AND LEFT HIP REASON FOR EXAM: Female, 57 years old. INJURY TECHNIQUE: 3 views of the pelvis and hip. COMPARISON: None. FINDINGS: There is a non-specific bowel gas pattern. Normal visualized soft tissue structures. Normal bilateral iliac wings, sacroiliac joints and visualized sacrum. Normal bilateral superior and inferior pubic rami. Normal pubic symphysis. Normal bilateral ischial tuberosities. Normal visualized femoral head. Normal acetabulum. Normal hip joint. RAD/HIP, UNI W/ Pelvis 2-3 Views IMPRESSION: Normal x-ray examination of the pelvis and hip. Electronically Signed: Leonard Townsend MD at 21:43 EDT ,
--- NOTE | 2022-11-13 21:20 | RAD_ITS ---
STUDY: X-RAY - LEFT WRIST REASON FOR EXAM: Female, 57 years old. INJURY TECHNIQUE: 3 view(s) of the wrist were obtained. COMPARISON: None. FINDINGS: Normal visualized distal radius and ulna. Normal radiocarpal articulation. Normal distal radioulnar articulation. Normal carpal bones. Normal carpal articulations. Normal carpometacarpal articulation of the thumb. Normal second through fifth carpometacarpal articulations. Normal visualized metacarpal bones. The soft tissue structures are unremarkable. There is no demonstrated acute fracture. RAD/Wrist min 3 Views IMPRESSION: Normal x-ray examination of the wrist. Electronically Signed: Leonard Townsend MD at 21:41 EDT ,
--- NOTE | 2022-11-13 22:17 | EX.ED.DYSGE1 ---
HPI History of Present Illness Chief Complaint: Lower Extremity Injury Informant: patient and friend Narrative Narrative: 57-year-old male history of chronic low back pain and chronic left hip pain presenting to the emergency room following a fall. Patient states that she has osteoarthritis of the left hip. She uses a walker with touchdown weightbearing. Tonight she fell using the walker landing on her left elbow left wrist and left hip. No loss of consciousness. She has been able to bear weight but painful. She states she generally feels just diffusely stiff. She is able to range the elbow and the wrist but it is painful. She can internally and externally rotate the left hip. She states that the distal leg feels sore. She denies other injuries. [facility] Medical History Abdominal pain Anemia Anxiety and depression Atherosclerotic heart disease of [place] coronary artery without angina pectoris Bacteria in urine Bone fracture CHI (closed head injury) Chronic lower back pain Chronic pain syndrome COPD (chronic obstructive pulmonary disease) Diarrhea Encephalopathy Encounter for screening for malignant neoplasm of lung in current smoker with 30 pack year history or greater Essential (primary) hypertension Familial combined hyperlipidemia Gabapentin overdose GERD (gastroesophageal reflux disease) Greater trochanteric bursitis of left hip Health care maintenance Health care maintenance Heart murmur History of pneumonia Hyperlipidemia Hypothyroidism Infected dental carries Intermittent palpitations Leukocytosis Low back strain Monomorphic ventricular tachycardia Muscle spasm Neuroendocrine neoplasm of stomach Neuropathy Obesity Obstructive sleep apnea ELOY (obstructive sleep apnea) Osteoarthritis Pain of left thumb Polycythemia Polypharmacy Primary malignant neuroendocrine tumor of stomach PTSD (post-traumatic stress disorder) Sacral contusion Sick sinus syndrome Sinus pause Tobacco dependence syndrome Tobacco use disorder, continuous Vitamin D deficiency Home Medications diclofenac sodium 1 % topical gel 4 g topical ONCE PRN joint pain #100 grams 08/05/20 [Rx Last Taken Unknown] lorazepam 1 mg tablet 1 mg PO TID PRN Anxiety 10/25/21 [History Last Taken Unknown] potassium chloride 20 mEq tablet,extended release(part/cryst) 20 meq PO DAILY #90 tabs 05/07/22 [Rx Last Taken Unknown] buprenorphine 10 mcg/hour weekly transdermal patch 1 patch transdermal QWEEK 05/16/22 [History Last Taken Unknown] buspirone 7.5 mg tablet 7.5 mg PO TID 05/16/22 [History Last Taken Unknown] duloxetine 60 mg capsule,delayed release 120 mg PO DAILY 05/16/22 [History Last Taken Unknown] gabapentin 300 mg capsule 300 mg PO TID 05/16/22 [History Last Taken Unknown] tizanidine 4 mg tablet 4 mg PO TID PRN 05/16/22 [History Last Taken Unknown] trazodone 150 mg tablet 150 mg PO QHS 05/16/22 [History Last Taken Unknown] amlodipine 5 mg tablet See Rx Instructions .Route .COMPLEX #90 tabs 06/01/22 [Rx Last Taken Unknown] isosorbide mononitrate 60 mg tablet,extended release 24 hr 60 mg PO QAM #90 tabs 06/13/22 [Rx Last Taken Unknown] levothyroxine 25 mcg tablet See Rx Instructions .Route .COMPLEX #90 tabs 06/13/22 [Rx Last Taken Unknown] omeprazole 40 mg capsule,delayed release See Rx Instructions .Route .COMPLEX #90 caps 06/13/22 [Rx Last Taken Unknown] rosuvastatin 10 mg tablet See Rx Instructions .Route .COMPLEX #90 tabs 06/13/22 [Rx Last Taken Unknown] hydrochlorothiazide 12.5 mg tablet 12.5 mg PO DAILY #90 tabs 07/10/22 [Rx Last Taken Unknown] lisinopril 20 mg tablet 20 mg PO DAILY #90 tabs 08/28/22 [Rx Last Taken Unknown] ondansetron 8 mg disintegrating tablet See Rx Instructions .Route .COMPLEX #60 tabs 10/04/22 [Rx Last Taken Unknown] sheri (Ultra-Light Rollator misc) #1 ea 10/17/22 [Rx Last Taken Unknown] metoprolol tartrate 100 mg tablet 100 mg PO BID blood pressure, heart #180 tabs 10/28/22 [Rx Last Taken Unknown] Allergy/AdvReac Type Severity Reaction Status Date / Time latex Allergy Intermediate skin Verified 08/28/22 13:20 irritation aspirin AdvReac Severe Nausea/Vom/ Verified 08/28/22 13:20 Diarrhea erythromycin base AdvReac Severe Vomiting,di Verified 08/28/22 13:20 [Erythromycin Base] arrhea NSAIDS (Non-Steroidal AdvReac Severe Vomiting,di Verified 08/28/22 13:20 Anti-Inflamma arrhea Family History Daughter Multiple sclerosis Father CAD (coronary artery disease) Heart disease Multiple sclerosis Grandfather Heart disease Uncle Heart disease Aunt No problems noted. Sister Colon cancer Mother Hypertension Surgical History history excision neuroendocrine tumor History of appendectomy History of back surgery History of colonoscopy History of elbow surgery History of hysterectomy History of laparotomy History of left heart catheterization (08/17/21) History of resection of stomach Hx of cholecystectomy Presence of permanent cardiac pacemaker (2013) Social History Smoking Status: Current some day smoker tobacco type: cigarettes Tobacco: How many years used: 30 second hand exposure: Yes quit status: has quit before alcohol intake: never substance use type: does not use what type of physical activity do you participate in: none ivania/adventist: None seatbelt use: always do you feel safe at home: Yes ROS ROS ED Constitutional Constitutional ED: Denies chills or weight loss Eyes Eyes: Denies change in vision or diplopia ENT ENT ED: Denies ear pain, rhinorrhea or sore throat Cardiovascular Cardiovascular: Denies chest pain, orthopnea, palpitations or racing heartbeat Respiratory/Chest Respiratory/Chest: Denies cough, dyspnea or orthopnea Gastrointestinal Gastrointestinal: Denies abdominal pain, diarrhea, nausea or vomiting Genitourinary Genitourinary ED: Denies dysuria, hematuria or urinary frequency Musculoskeletal Musculoskeletal: Reports back pain and other Details: See HPI ; Denies arthralgias or myalgias Integumentary Denies abscess or rash Neurologic Neurologic: Denies headache(s) or weakness Psychiatric Psychiatric: Denies anxiety, depression, suicidal ideation or suicidal thoughts Endocrine Endocrinology: Denies polydipsia, polyphagia or polyuria Allergic/Immunologic Allergic/Immunologic ED: Denies mouth swelling, tongue swelling or urticaria EXAM Physical Exam Const Vital Signs: 11/13/22 21:04 Temperature 97.5 F L Temperature Source Temporal Pulse Rate 86 Respiratory Rate 15 Blood Pressure 127/90 H Blood Pressure Mean 102 Pulse Ox 97 Oxygen Delivery Method Room Air Positive well nourished, well developed and obese General Appearance ED: well developed Nutritional Appearance: obese HEENT Reports normocephalic, head/scalp atraumatic and moist mucous membranes Eyes PERRL and EOMs intact bilaterally Neck no lymphadenopathy, supple and no JVD Resp normal respiratory effort and clear to auscultation bilaterally Cardio regular rate, regular rhythm and no murmurs GI normal to inspection, nondistended, normoactive bowel sounds and non-tender Palpation: soft Back/Spine no CVA tenderness and normal ROM Extremity Extremity Narrative: Tenderness palpation over the left greater trochanter. No shortening or rotation of the leg. Painful range of motion. Left wrist and elbow tender to palpation and painful range of motion. No deformity. Neurovascularly intact distal to the injuries both the arm and the leg. General Extremety ED: Negative for edema General Extremity: Negative for edema Neuro oriented x3 and CN's II-XII intact bilaterally Sensorium / Orientation: alert Motor Exam: strength 5/5 throughout Psych mental status grossly normal Mood & Affect: Negative for depressed or tearful Skin no rashes or lesions noted and no wounds MDM MDM MDM Narrative Medical decision making narrative: My interpretation of the plain films of the left hip is no acute fracture. My interpretation of the plain films of the left elbow and left wrist is no acute fracture. Patient received a dose of morphine. At this point I think the patient has contusions from the fall. She will be discharged home with supportive care. Following up with her doctors. Radiography Diagnostic Testing: Clinical Impression(s) from Imaging Studies Hip/Pelvis X-Ray 11/13/22 21:20 IMPRESSION: Normal x-ray examination of the pelvis and hip. Electronically Signed: Leonard Townsend MD at 21:43 EDT , Wrist X-Ray 11/13/22 21:20 IMPRESSION: Normal x-ray examination of the wrist. Electronically Signed: Leonard Townsend MD at 21:41 EDT , Elbow X-Ray 11/13/22 22:18 IMPRESSION: Normal x-ray examination of the elbow. Electronically Signed: Leonard Townsend MD at 22:56 EDT Reading Location ID and State: [employer] [facility] [employer] , Service support , Discharge Plan Triage Chief Complaint: Lower Extremity Injury ED Provider: Ubaldo Haynes Dx/Rx/DC Orders Prescriptions: No Action duloxetine 60 mg capsule,delayed release(DR/EC) 120 mg PO DAILY Rx Instructions: rx by pallative care lisinopril 20 mg tablet 20 mg PO DAILY Qty: 90 1RF tizanidine 4 mg tablet 4 mg PO TID PRN trazodone 150 mg tablet 150 mg PO QHS Patient Comments: TAKE 1 TABLET BY MOUTH EVERYDAY AT BEDTIME gabapentin 300 mg capsule 300 mg PO TID Patient Comments: TAKE 1 CAPSULE BY MOUTH THREE TIMES A DAY buspirone 7.5 mg tablet 7.5 mg PO TID Patient Comments: TAKE 1 TABLET BY MOUTH THREE TIMES A DAY buprenorphine 10 mcg/hour patch weekly 1 patch transdermal QWEEK lorazepam 1 mg tablet 1 mg PO TID PRN (Reason: Anxiety) Patient Comments: TAKE 1 TABLET BY ORAL ROUTE UP TO 3 TIMES A DAY NEEDED FOR ANXIETY diclofenac sodium 1 % gel 4 g topical ONCE MDD 32g/day total PRN (Reason: joint pain) Qty: 100 1RF Rx Instructions: apply to single knee, ankle, foot; for foot includes sole/toes/top of foot potassium chloride 20 mEq tablet,ER particles/crystals 20 meq PO DAILY Qty: 90 2RF amlodipine 5 mg tablet See Rx Instructions .ROUTE .COMPLEX Qty: 90 1RF Dose Instruction: TAKE ONE TABLET BY MOUTH DAILY Rx Instructions: TAKE ONE TABLET BY MOUTH DAILY levothyroxine 25 mcg tablet See Rx Instructions .ROUTE .COMPLEX Qty: 90 1RF Dose Instruction: TAKE ONE TABLET BY MOUTH DAILY FOR THYROID Rx Instructions: TAKE ONE TABLET BY MOUTH DAILY FOR THYROID omeprazole 40 mg capsule,delayed release(DR/EC) See Rx Instructions .ROUTE .COMPLEX Qty: 90 1RF Dose Instruction: TAKE ONE CAPSULE BY MOUTH DAILY FOR STOMACH Rx Instructions: TAKE ONE CAPSULE BY MOUTH DAILY FOR STOMACH rosuvastatin 10 mg tablet See Rx Instructions .ROUTE .COMPLEX Qty: 90 1RF Dose Instruction: TAKE ONE TABLET BY MOUTH DAILY Rx Instructions: TAKE ONE TABLET BY MOUTH DAILY isosorbide mononitrate 60 mg tablet extended release 24 hr 60 mg PO QAM Qty: 90 3RF hydrochlorothiazide 12.5 mg tablet 12.5 mg PO DAILY Qty: 90 1RF ondansetron 8 mg tablet,disintegrating See Rx Instructions .ROUTE .COMPLEX Qty: 60 1RF Dose Instruction: TAKE ONE TABLET BY MOUTH EVERY 8 HOURS NEEDED FOR NAUSEA AND VOMITING Rx Instructions: TAKE ONE TABLET BY MOUTH EVERY 8 HOURS NEEDED FOR NAUSEA AND VOMITING (DME) Ultra-Light Rollator Misc See Rx Instructions .Route Qty: 1 0RF Rx Instructions: As directed metoprolol tartrate 100 mg tablet 100 mg PO BID Qty: 180 1RF Rx Instructions: TAKE 1 TABLET BY MOUTH TWICE A DAY FOR BLOOD PRESSURE/HEART Primary Care Provider: Charla Wadsworth Referrals: Charla Wadsworth MD [Primary Care Provider] -
--- NOTE | 2022-11-13 22:18 | RAD_ITS ---
STUDY: X-RAY - LEFT ELBOW REASON FOR EXAM: Female, 57 years old. injury TECHNIQUE: 3 view(s) of the elbow. COMPARISON: None. FINDINGS: Normal visualized humerus, radius and ulna. Normal radiocapitellar and ulnotrochlear articulations. The soft tissue structures are unremarkable. There is no demonstrated fracture. RAD/Elbow min 3 Views IMPRESSION: Normal x-ray examination of the elbow. Electronically Signed: Leonard Townsend MD at 22:56 EDT ,
[2022-11-13] MEDS: morphine 10 MG/ML Syringe IM (22:38)
== END 2022-11-13 23:30 | disposition home or self-care (01) ==
PROVIDERS: Emergency Provider Emergency Medicine; PCP Internal Medicine; Visit Provider Emergency Medicine
DX: T14.8XXA Other injury of unspecified body region, initial encounter (principal); J44.9 Chronic obstructive pulmonary disease, unspecified; I25.10 Atherosclerotic heart disease of native coronary artery without angina pectoris; F17.210 Nicotine dependence, cigarettes, uncomplicated; G89.4 Chronic pain syndrome; E78.49 Other hyperlipidemia; I10 Essential (primary) hypertension; G47.33 Obstructive sleep apnea (adult) (pediatric); K21.9 Gastro-esophageal reflux disease without esophagitis; M54.50 Low back pain, unspecified; M25.552 Pain in left hip; W17.89XA Other fall from one level to another, initial encounter
CPT/HCPCS: 73080; 73110; 73502; 96372; 99285

== ENCOUNTER 2022-11-15 12:20 | Emergency (ER) | payer MEDICARE, MEDICAID, SELFPAY ==
[2022-11-15 12:21] VITALS: BP 104/83; PULSE 63; RESP 18; TEMP 36.1; O2SAT 99
--- NOTE | 2022-11-15 13:24 | RAD_ITS ---
STUDY: X-RAY - PELVIS AND LEFT HIP REASON FOR EXAM: Female, 57 years old. FALL -- -- FALL TODAY, LEFT HIP PAIN TECHNIQUE: 3 views of the pelvis and hip. COMPARISON: Comparison is made with prior study dated November 13, 2022. FINDINGS: There is a non-specific bowel gas pattern. There are multiple calcified phleboliths. Prior laminectomy and fusion at the L4-L5 level. There is narrowing with cortical sclerosis and osteophyte formation of the sacroiliac joint consistent with degenerative osteoarthritic changes. Normal bilateral superior and inferior pubic rami. Normal pubic symphysis. Normal bilateral ischial tuberosities. Normal visualized femoral head. There is osteoarthritic spur formation of the acetabular rim. There is mild articular joint space narrowing of the hip. RAD/HIP, UNI W/ Pelvis 2-3 Views IMPRESSION: Degenerative changes. No fracture is seen. Electronically Signed: Ming Roberts MD at 13:45 EDT ,
--- NOTE | 2022-11-15 14:10 | EDS_ITS ---
HPI HPI - Fall History of Present Illness Chief Complaint: Fall Informant: patient Narrative Narrative: Patient presenting from pain management office for fall in the bathroom. She is seen from follow-up for hip injection left side October 24. She has been having pain since mid September with sciatica symptoms and hip pain. She is on buspirone patches and gabapentin for pain control. She cannot tolerate steroids. She is not a diabetic. History of neuroendocrine tumor to her stomach therefore does not do NSAIDs. Seen 2 days ago for a fall hip contusion with swelling at that time. She ambulates with a wheeled walker. She states plan is referred to orthopedics for further advanced imaging as an outpatient. Denies any head injury. Denies any loss of bowel or bladder control. Does report chronic intermittent tingling down to her foot. Is been told of sciatica in the past. Prior similar symptoms: Yes PFSH PFSH Medical History Abdominal pain Anemia Anxiety and depression Atherosclerotic heart disease of [place] coronary artery without angina pectoris Bacteria in urine Bone fracture CHI (closed head injury) Chronic lower back pain Chronic pain syndrome COPD (chronic obstructive pulmonary disease) Diarrhea Encephalopathy Encounter for screening for malignant neoplasm of lung in current smoker with 30 pack year history or greater Essential (primary) hypertension Familial combined hyperlipidemia Gabapentin overdose GERD (gastroesophageal reflux disease) Greater trochanteric bursitis of left hip Health care maintenance Health care maintenance Heart murmur History of pneumonia Hyperlipidemia Hypothyroidism Infected dental carries Intermittent palpitations Leukocytosis Low back strain Monomorphic ventricular tachycardia Muscle spasm Neuroendocrine neoplasm of stomach Neuropathy Obesity Obstructive sleep apnea ELOY (obstructive sleep apnea) Osteoarthritis Pain of left thumb Polycythemia Polypharmacy Primary malignant neuroendocrine tumor of stomach PTSD (post-traumatic stress disorder) Sacral contusion Sick sinus syndrome Sinus pause Tobacco dependence syndrome Tobacco use disorder, continuous Vitamin D deficiency Home Medications diclofenac sodium 1 % topical gel 4 g topical ONCE PRN joint pain #100 grams 0 08/05/20 [Rx Last Taken Unknown] lorazepam 1 mg tablet 1 mg PO TID PRN Anxiety 10/25/21 [History Last Taken Unknown] potassium chloride 20 mEq tablet,extended release(part/cryst) 20 meq PO DAILY #90 tabs 05/07/22 [Rx Last Taken Unknown] buprenorphine 10 mcg/hour weekly transdermal patch 1 patch transdermal QWEEK 05/16/22 [History Last Taken Unknown] buspirone 7.5 mg tablet 7.5 mg PO TID 05/16/22 [History Last Taken Unknown] duloxetine 60 mg capsule,delayed release 120 mg PO DAILY 05/16/22 [History Last Taken Unknown] gabapentin 300 mg capsule 300 mg PO TID 05/16/22 [History Last Taken Unknown] tizanidine 4 mg tablet 4 mg PO TID PRN 05/16/22 [History Last Taken Unknown] trazodone 150 mg tablet 150 mg PO QHS 05/16/22 [History Last Taken Unknown] amlodipine 5 mg tablet See Rx Instructions .Route .COMPLEX #90 tabs 06/01/22 [Rx Last Taken Unknown] isosorbide mononitrate 60 mg tablet,extended release 24 hr 60 mg PO QAM #90 tabs 06/13/22 [Rx Last Taken Unknown] levothyroxine 25 mcg tablet See Rx Instructions .Route .COMPLEX #90 tabs 06/13/22 [Rx Last Taken Unknown] omeprazole 40 mg capsule,delayed release See Rx Instructions .Route .COMPLEX #90 caps 06/13/22 [Rx Last Taken Unknown] rosuvastatin 10 mg tablet See Rx Instructions .Route .COMPLEX #90 tabs 06/13/22 [Rx Last Taken Unknown] hydrochlorothiazide 12.5 mg tablet 12.5 mg PO DAILY #90 tabs 07/10/22 [Rx Last Taken Unknown] lisinopril 20 mg tablet 20 mg PO DAILY #90 tabs 08/28/22 [Rx Last Taken Unknown] ondansetron 8 mg disintegrating tablet See Rx Instructions .Route .COMPLEX #60 tabs 10/04/22 [Rx Last Taken Unknown] sheri (Ultra-Light Rollator [facility] [place]) #1 ea 10/17/22 [Rx Last Taken Unknown] metoprolol tartrate 100 mg tablet 100 mg PO BID blood pressure, heart #180 tabs 10/28/22 [Rx Last Taken Unknown] Allergy/AdvReac Type Severity Reaction Status Date / Time latex Allergy Intermediate skin Verified 11/15/22 12:21 irritation aspirin AdvReac Severe Nausea/Vom/ Verified 11/15/22 12:21 Diarrhea erythromycin base AdvReac Severe Vomiting,di Verified 11/15/22 12:21 [Erythromycin Base] arrhea NSAIDS (Non-Steroidal AdvReac Severe Vomiting,di Verified 11/15/22 12:21 Anti-Inflamma arrhea Family History Daughter Multiple sclerosis Father CAD (coronary artery disease) Heart disease Multiple sclerosis Grandfather Heart disease Uncle Heart disease Aunt No problems noted. Sister Colon cancer Mother Hypertension Surgical History history excision neuroendocrine tumor History of appendectomy History of back surgery History of colonoscopy History of elbow surgery History of hysterectomy History of laparotomy History of left heart catheterization (08/17/21) History of resection of stomach Hx of cholecystectomy Presence of permanent cardiac pacemaker (2013) Social History Smoking Status: Current some day smoker tobacco type: cigarettes Tobacco: How many years used: 30 second hand exposure: Yes quit status: has quit before alcohol intake: never substance use type: does not use what type of physical activity do you participate in: none ivania/orthodoxy: None seatbelt use: always do you feel safe at home: Yes ROS ROS ED Constitutional Constitutional ED: Denies chills, fever(s) or sweats Eyes Eyes: Denies change in vision ENT ENT ED: Denies dysphagia or sore throat Cardiovascular Cardiovascular: Denies chest pain, leg edema, palpitations or racing heartbeat Respiratory/Chest Respiratory/Chest: Denies cough, dyspnea or dyspnea on exertion Gastrointestinal Gastrointestinal: Denies abdominal pain, diarrhea, nausea or vomiting Genitourinary Genitourinary ED: Denies dysuria, hematuria or urinary frequency Musculoskeletal Musculoskeletal: Reports extremity pain; Denies back pain or neck pain Integumentary Denies rash or wounds Neurologic Neurologic: Denies headache(s), paresthesias or weakness EXAM Physical Exam Const Vital Signs: 11/15/22 12:21 11/15/22 14:06 Temperature 96.9 F L Temperature Source Temporal Pulse Rate 63 Respiratory Rate 18 Respiratory Effort Normal Non-Labored Respiratory Depth Normal Respiratory Pattern Normal Blood Pressure 104/83 H Blood Pressure Mean 90 Pulse Ox 99 Oxygen Delivery Method Room Air Room Air Positive well nourished and well developed General Appearance ED: well developed and NAD HEENT Reports moist mucous membranes normocephalic and atraumatic Eyes PERRL, EOMs intact bilaterally and conjunctivae normal General Eye ED: Yes normal appearance of both eyes Neck no lymphadenopathy and supple General: Negative for tenderness Chest Wall Chest: Negative for tenderness Resp normal respiratory effort and normal air movement Effort and Inspection: symmetric chest movement; Negative for respiratory distress Cardio regular rate, regular rhythm and no murmurs Peripheral Pulses: pulses 2+ throughout GI normal to inspection, nondistended, normoactive bowel sounds and non-tender Palpation: Negative for guarding or rebound tenderness present Back/Spine no CVA tenderness Back/Spine Narrative: No midline tenderness. No step-offs. Extremity Extremity Narrative: Left lower extremity: Negative logroll. Tender palpation lateral trochanteric mild swelling soft tissue. No deformities. Neuro vas intact distally. General Extremety ED: Negative for edema or tenderness General Extremity: Negative for edema Neuro oriented x3 and no sensory deficits noted Sensorium / Orientation: awake and alert Skin no rashes or lesions noted and no wounds MDM MDM MDM Narrative Medical decision making narrative: Interventions / MDM: Differential diagnosis: Hip contusion, sciatica Diagnosis considered but do not suspect: No cauda equina symptoms, no hip fracture on imaging My EKG interpretation: N/A Imaging independently reviewed and interpreted by myself: 3 view left hip with pelvis: No fracture or dislocation also read by radiology. External documents reviewed: Visit from 2 days ago negative hip imaging from a fall. Test considered but not ordered:N/A ED course: Patient recurrent fall today and pain management office. X-rays from triage reviewed and negative. She is follow-up pain management she is treated with oxycodone in the ED. She cannot tolerate NSAIDs or steroids. She has a walker lives alone, she does not feel she needs rehab at this time. She offered discussion with case management she declines at this time. She is being referred by her pain management to orthopedics with advanced imaging outpatient. She is on buspirone patches with gabapentin. Discussed with patient any stronger pain medicine as needed read by her pain doctor and she understands this. She will be discharged with outpatient follow-up. All questions were answered. Re-evaluation: stable Disposition discussed with patient/family/significant other: Patient Case discussed with consulting clinician: N/A This note was generated with SCM-[employer] dictation software. It may contain incorrect words, spelling, and punctuation that were not noted in checking the note before signing. Radiography Diagnostic Testing: Clinical Impression(s) from Imaging Studies Hip/Pelvis X-Ray 09/07/23 13:24 IMPRESSION: Degenerative changes. No fracture is seen. Electronically Signed: Ming Roberts MD at 13:45 EDT , Discharge Plan Triage Chief Complaint: Fall Other Complaint: Lower Extremity Injury ED Provider: Pj Ruiz Dx/Rx/DC Orders Clinical Impression: Left sided sciatica, Contusion of hip, left Instructions: ED Hip Contusion, ED Sciatica Prescriptions: No Action duloxetine 60 mg capsule,delayed release(DR/EC) 120 mg PO DAILY Rx Instructions: rx by pallative care lisinopril 20 mg tablet 20 mg PO DAILY Qty: 90 1RF tizanidine 4 mg tablet 4 mg PO TID PRN trazodone 150 mg tablet 150 mg PO QHS Patient Comments: TAKE 1 TABLET BY MOUTH EVERYDAY AT BEDTIME gabapentin 300 mg capsule 300 mg PO TID Patient Comments: TAKE 1 CAPSULE BY MOUTH THREE TIMES A DAY buspirone 7.5 mg tablet 7.5 mg PO TID Patient Comments: TAKE 1 TABLET BY MOUTH THREE TIMES A DAY buprenorphine 10 mcg/hour patch weekly 1 patch transdermal QWEEK lorazepam 1 mg tablet 1 mg PO TID PRN (Reason: Anxiety) Patient Comments: TAKE 1 TABLET BY ORAL ROUTE UP TO 3 TIMES A DAY NEEDED FOR ANXIETY diclofenac sodium 1 % gel 4 g topical ONCE MDD 32g/day total PRN (Reason: joint pain) Qty: 100 1RF Rx Instructions: apply to single knee, ankle, foot; for foot includes sole/toes/top of foot potassium chloride 20 mEq tablet,ER particles/crystals 20 meq PO DAILY Qty: 90 2RF amlodipine 5 mg tablet See Rx Instructions .ROUTE .COMPLEX Qty: 90 1RF Dose Instruction: TAKE ONE TABLET BY MOUTH DAILY Rx Instructions: TAKE ONE TABLET BY MOUTH DAILY levothyroxine 25 mcg tablet See Rx Instructions .ROUTE .COMPLEX Qty: 90 1RF Dose Instruction: TAKE ONE TABLET BY MOUTH DAILY FOR THYROID Rx Instructions: TAKE ONE TABLET BY MOUTH DAILY FOR THYROID omeprazole 40 mg capsule,delayed release(DR/EC) See Rx Instructions .ROUTE .COMPLEX Qty: 90 1RF Dose Instruction: TAKE ONE CAPSULE BY MOUTH DAILY FOR STOMACH Rx Instructions: TAKE ONE CAPSULE BY MOUTH DAILY FOR STOMACH rosuvastatin 10 mg tablet See Rx Instructions .ROUTE .COMPLEX Qty: 90 1RF Dose Instruction: TAKE ONE TABLET BY MOUTH DAILY Rx Instructions: TAKE ONE TABLET BY MOUTH DAILY isosorbide mononitrate 60 mg tablet extended release 24 hr 60 mg PO QAM Qty: 90 3RF hydrochlorothiazide 12.5 mg tablet 12.5 mg PO DAILY Qty: 90 1RF ondansetron 8 mg tablet,disintegrating See Rx Instructions .ROUTE .COMPLEX Qty: 60 1RF Dose Instruction: TAKE ONE TABLET BY MOUTH EVERY 8 HOURS NEEDED FOR NAUSEA AND VOMITING Rx Instructions: TAKE ONE TABLET BY MOUTH EVERY 8 HOURS NEEDED FOR NAUSEA AND VOMITING (DME) Ultra-Light Rollator Misc See Rx Instructions .Route Qty: 1 0RF Rx Instructions: As directed metoprolol tartrate 100 mg tablet 100 mg PO BID Qty: 180 1RF Rx Instructions: TAKE 1 TABLET BY MOUTH TWICE A DAY FOR BLOOD PRESSURE/HEART Primary Care Provider: Charla Wadsworth Referrals: Jose Rafael Alexander DO [Non-Staff] - 3-5 Days Charla Wadsworth MD [Primary Care Provider] - Activity Restrictions/Additional Instructions: Left hip x-ray negative. Continue using your walker, pain medications per your pain doctors. Follow-up with Dr. Alexander. Return if any worsening symptoms. Disposition Disposition: Home, Self Care Discharge Date/Time: 11/15/22 14:23
[2022-11-15] MEDS: oxyCODONE 5 MG Tablet 10 MG PO (14:19)
== END 2022-11-15 14:23 | disposition home or self-care (01) ==
PROVIDERS: Emergency Provider Emergency Medicine; PCP Internal Medicine; Visit Provider Emergency Medicine
DX: S70.02XA Contusion of left hip, initial encounter (principal); J44.9 Chronic obstructive pulmonary disease, unspecified; I49.5 Sick sinus syndrome; W18.30XA Fall on same level, unspecified, initial encounter; Y99.8 Other external cause status; Y92.531 Health care provider office as the place of occurrence of the external cause; M54.32 Sciatica, left side; I25.10 Atherosclerotic heart disease of native coronary artery without angina pectoris; I10 Essential (primary) hypertension; E78.49 Other hyperlipidemia; G89.4 Chronic pain syndrome; F17.210 Nicotine dependence, cigarettes, uncomplicated; Z95.0 Presence of cardiac pacemaker; Z79.891 Long term (current) use of opiate analgesic; Z79.899 Other long term (current) drug therapy
CPT/HCPCS: 73502; 99285

== ENCOUNTER 2022-11-24 20:22 | Emergency (ER) | payer MEDICARE, MEDICAID, SELFPAY ==
[2022-11-24 20:23] VITALS: BP 122/77; BP 124/77; PULSE 74; RESP 16; TEMP 35.6; O2SAT 96; BMI 34.2
--- NOTE | 2022-11-24 21:45 | RAD_ITS ---
STUDY: X-RAY - RIGHT KNEE REASON FOR EXAM: Female, 57 years old. Injury/Pain TECHNIQUE: 4 view(s) of the knee. COMPARISON: 06/27/2020. FINDINGS: Mild distal osteophytosis of the distal femur/medial condyle, otherwise normal visualized distal femur. Normal visualized proximal tibia and fibula. There is mild arthrosis of the proximal tibiofibular articulation. There is no demonstrated fracture. Normal medial femorotibial compartment. Normal lateral femorotibial compartment. There is mild degenerative arthrosis of the patellofemoral articulation. Moderate joint effusion. The soft tissue structures are unremarkable. RAD/Knee 4 or More Views IMPRESSION: Minor degenerative disease with moderate joint effusion. No acute fracture or subluxation seen. Electronically Signed: Jerri Gould MD at 22:37 EDT ,
--- NOTE | 2022-11-24 22:42 | ED.VIS.LOWEX ---
HPI History of Present Illness Chief Complaint: Edema Narrative Narrative: Patient is a 57-year-old female with history of care plan, osteoarthritis, chronic abdominal pain, chronic pain, hypertension and recent fall presenting with right knee pain and swelling. Patient states she had 2 recent falls. She actually landed on her left side but a few days after her most recent fall she started noting swelling above her right knee and pain. She has been wearing a neoprene [id number] knee brace with no relief. She did not have this evaluated after her recent falls but she did have her hip looked at. Denies associated numbness or tingling. Is allergic to NSAIDs due to medication intolerance. States she has been taking Tylenol with no relief. Of note patient does have a care plan with us and is on buprenorphine at baseline. [facility] Medical History Abdominal pain Anemia Anxiety and depression Atherosclerotic heart disease of [place] coronary artery without angina pectoris Bacteria in urine Bone fracture CHI (closed head injury) Chronic lower back pain Chronic pain syndrome COPD (chronic obstructive pulmonary disease) Diarrhea Encephalopathy Encounter for screening for malignant neoplasm of lung in current smoker with 30 pack year history or greater Essential (primary) hypertension Familial combined hyperlipidemia Gabapentin overdose GERD (gastroesophageal reflux disease) Greater trochanteric bursitis of left hip Health care maintenance Health care maintenance Heart murmur History of pneumonia Hyperlipidemia Hypothyroidism Infected dental carries Intermittent palpitations Leukocytosis Low back strain Monomorphic ventricular tachycardia Muscle spasm Neuroendocrine neoplasm of stomach Neuropathy Obesity Obstructive sleep apnea ELOY (obstructive sleep apnea) Osteoarthritis Pain of left thumb Polycythemia Polypharmacy Primary malignant neuroendocrine tumor of stomach PTSD (post-traumatic stress disorder) Sacral contusion Sick sinus syndrome Sinus pause Tobacco dependence syndrome Tobacco use disorder, continuous Vitamin D deficiency Home Medications diclofenac sodium 1 % topical gel 4 g topical ONCE PRN joint pain #100 grams 08/05/20 [Rx Last Taken Unknown] lorazepam 1 mg tablet 1 mg PO TID PRN Anxiety 10/25/21 [History Last Taken Unknown] potassium chloride 20 mEq tablet,extended release(part/cryst) 20 meq PO DAILY #90 tabs 05/07/22 [Rx Last Taken Unknown] buprenorphine 10 mcg/hour weekly transdermal patch 1 patch transdermal QWEEK 05/16/22 [History Last Taken Unknown] buspirone 7.5 mg tablet 7.5 mg PO TID 05/16/22 [History Last Taken Unknown] duloxetine 60 mg capsule,delayed release 120 mg PO DAILY 05/16/22 [History Last Taken Unknown] gabapentin 300 mg capsule 300 mg PO TID 05/16/22 [History Last Taken Unknown] tizanidine 4 mg tablet 4 mg PO TID PRN 05/16/22 [History Last Taken Unknown] trazodone 150 mg tablet 150 mg PO QHS 05/16/22 [History Last Taken Unknown] amlodipine 5 mg tablet See Rx Instructions .Route .COMPLEX #90 tabs 06/01/22 [Rx Last Taken Unknown] isosorbide mononitrate 60 mg tablet,extended release 24 hr 60 mg PO QAM #90 tabs 06/13/22 [Rx Last Taken Unknown] levothyroxine 25 mcg tablet See Rx Instructions .Route .COMPLEX #90 tabs 06/13/22 [Rx Last Taken Unknown] omeprazole 40 mg capsule,delayed release See Rx Instructions .Route .COMPLEX #90 caps 06/13/22 [Rx Last Taken Unknown] rosuvastatin 10 mg tablet See Rx Instructions .Route .COMPLEX #90 tabs 06/13/22 [Rx Last Taken Unknown] hydrochlorothiazide 12.5 mg tablet 12.5 mg PO DAILY #90 tabs 07/10/22 [Rx Last Taken Unknown] lisinopril 20 mg tablet 20 mg PO DAILY #90 tabs 08/28/22 [Rx Last Taken Unknown] ondansetron 8 mg disintegrating tablet See Rx Instructions .Route .COMPLEX #60 tabs 10/04/22 [Rx Last Taken Unknown] walker (Ultra-Light Rollator mis) #1 ea 10/17/22 [Rx Last Taken Unknown] metoprolol tartrate 100 mg tablet 100 mg PO BID blood pressure, heart #180 tabs 10/28/22 [Rx Last Taken Unknown] Allergy/AdvReac Type Severity Reaction Status Date / Time latex Allergy Intermediate skin Verified 11/15/22 12:21 irritation aspirin AdvReac Severe Nausea/Vom/ Verified 11/15/22 12:21 Diarrhea erythromycin base AdvReac Severe Vomiting,di Verified 11/15/22 12:21 [Erythromycin Base] arrhea NSAIDS (Non-Steroidal AdvReac Severe Vomiting,di Verified 11/15/22 12:21 Anti-Inflamma arrhea Family History Daughter Multiple sclerosis Father CAD (coronary artery disease) Heart disease Multiple sclerosis Grandfather Heart disease Uncle Heart disease Aunt No problems noted. Sister Colon cancer Mother Hypertension Surgical History history excision neuroendocrine tumor History of appendectomy History of back surgery History of colonoscopy History of elbow surgery History of hysterectomy History of laparotomy History of left heart catheterization (08/17/21) History of resection of stomach Hx of cholecystectomy Presence of permanent cardiac pacemaker (2013) Social History Smoking Status: Current some day smoker tobacco type: cigarettes Tobacco: How many years used: 30 second hand exposure: Yes quit status: has quit before alcohol intake: never substance use type: does not use what type of physical activity do you participate in: none ivania/gnosticism: None seatbelt use: always do you feel safe at home: Yes ROS ROS ED Constitutional Constitutional ED: Denies chills or fever(s) Genitourinary Genitourinary ED: Denies dysuria Musculoskeletal Musculoskeletal: Reports arthralgias and other Details: Right knee pain Integumentary Denies rash Neurologic Neurologic: Denies headache(s), paresthesias or weakness Hematologic/Lymphatic Hematologic/Lymphatic: Denies easy bleeding EXAM Physical Exam Const Vital Signs: 11/24/22 20:23 11/24/22 20:23 Temperature 96.0 F L 96.0 F L Temperature Source Temporal Temporal Pulse Rate 74 74 Respiratory Rate 16 16 Blood Pressure 124/77 H 122/77 H Blood Pressure Mean 92 92 Pulse Ox 96 96 Oxygen Delivery Method Room Air Room Air Positive well nourished and well developed General Appearance ED: well developed and NAD HEENT normocephalic and atraumatic Chest Wall inspection of chest normal Resp normal respiratory effort Cardio regular rate and regular rhythm Cardio Narrative: 2+ DP pulse Extremity full ROM Extremity Narrative: Right lower extremity?extensor mechanism intact. No pedal edema/asymmetry of the lower legs. Localized area of edema over the anterior medial knee. There is associated tenderness. Range of motion preserved of the knee. No ligament laxity appreciated. Neuro oriented x3 Sensorium / Orientation: alert Motor Exam: Negative for general weakness Psych mental status grossly normal Skin no wounds Lesions: no lesions Rashes: no rashes MDM MDM MDM Narrative Medical decision making narrative: Patient is evaluated for right knee pain. She does have a localized area of swelling. Extensor mechanism intact so I have less concern for quadricep tendon tear/patellar tendon tear. Patella seems to be in normal position/not high riding. Suspect possible sprain versus contusion. She does have a joint effusion and degenerative changes on x-ray however no acute fracture or subluxation is seen. This was reviewed by myself as well as radiology. Patient is neurovascular intact distally. Physical exam is not consistent with venous thromboembolism. Do not think she requires a venous duplex or D-dimer at this time. Patient is offered Tylenol but she states she took a right prior to arrival. She is offered a Lidoderm patch for pain control but she declines. Patient has a care plan and given that she has had 3 muscle skeletal pain related visits in the past week I do not think further opioid pain medication is appropriate at this time. Patient is discharged from the hospital. She counseled return precautions. Her to follow-up with orthopedics for her knee. Radiography Diagnostic Testing: Clinical Impression(s) from Imaging Studies Knee X-Ray 11/24/22 21:45 IMPRESSION: Minor degenerative disease with moderate joint effusion. No acute fracture or subluxation seen. Electronically Signed: Jerri Gould MD at 22:37 EDT , Discharge Plan Triage Chief Complaint: Edema ED Provider: Crystal Lujan Dx/Rx/DC Orders Clinical Impression: Effusion of right knee Instructions: ED Knee Effusion Prescriptions: No Action duloxetine 60 mg capsule,delayed release(DR/EC) 120 mg PO DAILY Rx Instructions: rx by pallative care lisinopril 20 mg tablet 20 mg PO DAILY Qty: 90 1RF tizanidine 4 mg tablet 4 mg PO TID PRN trazodone 150 mg tablet 150 mg PO QHS Patient Comments: TAKE 1 TABLET BY MOUTH EVERYDAY AT BEDTIME gabapentin 300 mg capsule 300 mg PO TID Patient Comments: TAKE 1 CAPSULE BY MOUTH THREE TIMES A DAY buspirone 7.5 mg tablet 7.5 mg PO TID Patient Comments: TAKE 1 TABLET BY MOUTH THREE TIMES A DAY buprenorphine 10 mcg/hour patch weekly 1 patch transdermal QWEEK lorazepam 1 mg tablet 1 mg PO TID PRN (Reason: Anxiety) Patient Comments: TAKE 1 TABLET BY ORAL ROUTE UP TO 3 TIMES A DAY NEEDED FOR ANXIETY diclofenac sodium 1 % gel 4 g topical ONCE MDD 32g/day total PRN (Reason: joint pain) Qty: 100 1RF Rx Instructions: apply to single knee, ankle, foot; for foot includes sole/toes/top of foot potassium chloride 20 mEq tablet,ER particles/crystals 20 meq PO DAILY Qty: 90 2RF amlodipine 5 mg tablet See Rx Instructions .ROUTE .COMPLEX Qty: 90 1RF Dose Instruction: TAKE ONE TABLET BY MOUTH DAILY Rx Instructions: TAKE ONE TABLET BY MOUTH DAILY levothyroxine 25 mcg tablet See Rx Instructions .ROUTE .COMPLEX Qty: 90 1RF Dose Instruction: TAKE ONE TABLET BY MOUTH DAILY FOR THYROID Rx Instructions: TAKE ONE TABLET BY MOUTH DAILY FOR THYROID omeprazole 40 mg capsule,delayed release(DR/EC) See Rx Instructions .ROUTE .COMPLEX Qty: 90 1RF Dose Instruction: TAKE ONE CAPSULE BY MOUTH DAILY FOR STOMACH Rx Instructions: TAKE ONE CAPSULE BY MOUTH DAILY FOR STOMACH rosuvastatin 10 mg tablet See Rx Instructions .ROUTE .COMPLEX Qty: 90 1RF Dose Instruction: TAKE ONE TABLET BY MOUTH DAILY Rx Instructions: TAKE ONE TABLET BY MOUTH DAILY isosorbide mononitrate 60 mg tablet extended release 24 hr 60 mg PO QAM Qty: 90 3RF hydrochlorothiazide 12.5 mg tablet 12.5 mg PO DAILY Qty: 90 1RF ondansetron 8 mg tablet,disintegrating See Rx Instructions .ROUTE .COMPLEX Qty: 60 1RF Dose Instruction: TAKE ONE TABLET BY MOUTH EVERY 8 HOURS NEEDED FOR NAUSEA AND VOMITING Rx Instructions: TAKE ONE TABLET BY MOUTH EVERY 8 HOURS NEEDED FOR NAUSEA AND VOMITING (DME) Ultra-Light Rollator Misc See Rx Instructions .Route Qty: 1 0RF Rx Instructions: As directed metoprolol tartrate 100 mg tablet 100 mg PO BID Qty: 180 1RF Rx Instructions: TAKE 1 TABLET BY MOUTH TWICE A DAY FOR BLOOD PRESSURE/HEART Primary Care Provider: Charla Wadsworth Referrals: Charla Wadsworth MD [Primary Care Provider] - Rupesh Torres MD [Med Staff - Active Staff] - As soon as possible Activity Restrictions/Additional Instructions: Your x-ray does not show any acute fracture or dislocation. Wear the Alejandro wrap. Try to elevate. Take Tylenol for pain at home. Please follow-up with orthopedics and pain management. Disposition Disposition: Home, Self Care Discharge Date/Time: 11/24/22 22:51
--- NOTE | 2022-11-24 22:43 | ED.RN ---
IN TO PT ROOM TO ANSWER CALL LIGHT. SHE ASKS IF HER XRAY IS BACK YET AND STATES SHE NEEDS PAIN MEDICATION. INFORMED STILL WAITING FOR XRAY RESULTS, APPROXIMATELY [address] WEAVER INFORMED OF REQUEST. DUE TO CARE PLAN, NO NARCOTICS TO BE GIVEN. OFFERED TYLENOL, DECLINED, STATES SHE JUST TOOK PRIOR TO ARRIVAL. THIS NURSE INFORMS PT OF CARE PLAN AND THAT NO NARCOTICS WILL BE GIVEN. PT IN PROCESS OF PUTTING CALL LIGHT ON AGAIN WHEN THIS NURSE ENTERS ROOM, ASKED HER WHAT SHE NEEDED, IF I'M NOT GETTING ANY PAIN MEDS I WANT MY DISCHARGE PAPERS SO I CAN LEAVE. INFORMED DR WEAVER OF SAME. LIDOCAINE PATCH OFFERED PER DR WEAVER, PT DECLINES. INITIALLY DECLINED DUSTIN WRAP AND AFTER DISCUSSION WITH FRIEND, CHANGED HER MIND.
== END 2022-11-24 22:51 | disposition home or self-care (01) ==
PROVIDERS: Emergency Provider Emergency Medicine; PCP Internal Medicine; Visit Provider Emergency Medicine
DX: M25.461 Effusion, right knee (principal); J44.9 Chronic obstructive pulmonary disease, unspecified; M25.561 Pain in right knee; I25.10 Atherosclerotic heart disease of native coronary artery without angina pectoris; E78.49 Other hyperlipidemia; I10 Essential (primary) hypertension; M54.50 Low back pain, unspecified; G89.29 Other chronic pain; F17.210 Nicotine dependence, cigarettes, uncomplicated; Z79.890 Hormone replacement therapy; Z79.899 Other long term (current) drug therapy
CPT/HCPCS: 73564; 99282

== ENCOUNTER 2022-12-03 16:26 | Emergency (ER) | payer MEDICARE, MEDICAID, SELFPAY ==
[2022-12-03 16:27] VITALS: BP 132/75; PULSE 53; RESP 14; TEMP 36.4; O2SAT 98; BMI 33.9
--- NOTE | 2022-12-03 18:23 | RAD_ITS ---
INDICATION: chest pain EXAMINATION/TECHNIQUE: X-RAY - XR Chest 1 View COMPARISON: 08/15/2021 FINDINGS: LIFE-SUPPORT AND LINES: 1. Transvenous pacer leads without change. The RIGHT atrial lead is downward projecting and may not be completely gauge within the RIGHT irregular appendage however there has been negligible change. 2. No pneumothorax. HEART AND VESSELS: The cardiac silhouette, pulmonary vasculature have normal appearance. No evidence of congestive failure. LUNGS AND PLEURAL SPACES: Lungs are clear. No focal infiltrate, consolidation or effusions. No evidence of pneumothorax. No pulmonary mass is noted. MEDIASTINUM AND HILAR REGIONS: No masses adenopathy noted. No areas of calcification. Visualized upper airway is normal in position. BONY ELEMENTS: No acute bony changes noted. RAD/Chest 1 View (Portable) IMPRESSION: 1. Transvenous pacer leads without change. The RIGHT atrial lead is downward projecting and may not be completely engaged within the RIGHT atrial appendage however no interval change. 2. No evidence of acute cardiac pulmonary process. Electronically Signed: Sergio Gibson MD at 18:52 EDT ,
--- NOTE | 2022-12-03 18:46 | EDS_ITS ---
HPI History of Present Illness Chief Complaint: Chest Pain Informant: patient Onset/Context/Timing Onset: Today Activity at onset: sudden Timing: Intermittent and Lasts (Approximately 20 minutes) Quality: Positive for Dull Location: Substernal Worsened By: Nothing Relieved By: Nothing Associated Symptoms: Positive for Nausea, Lightheadedness and Palpitations; Negative for Vomiting, Diaphoresis, Dyspnea, Cough, Fever or Acid Reflux Narrative Narrative: Patient presents with chest pain that began today. Patient states it began rather suddenly. Patient states that it came on while she was at rest. Patient states it has been intermittent. Patient states she has had 4 episodes of chest pain since this afternoon. Patient states it last for approximately 20 minutes and then resolved. Patient states it is over the substernal and parasternal areas. Patient states it radiates into her jaw and neck. Patient states nothing makes it worse and nothing makes it better. Patient admits to some nausea but denies any vomiting. Patient admits to some lightheadedness and palpitations. Patient denies any shortness of breath or cough. Patient denies any diaphoresis. Patient is a smoker. Patient denies any other cardiovascular risk factors. CVD Risk Factors: Positive for Hypertension, Hypercholesterolemia and Smoking; Negative for Diabetes or Family History 1' </=55 PE Risk Factors: Positive for Cancer; Negative for Recent Travel/Surgery, Recent Immobilization, Prior DVT or PE or OCP + Smoking + >/=35 PFSH PFSH Medical History Abdominal pain Anemia Anxiety and depression Atherosclerotic heart disease of [place] coronary artery without angina pectoris Bacteria in urine Bone fracture CHI (closed head injury) Chronic lower back pain Chronic pain syndrome COPD (chronic obstructive pulmonary disease) Diarrhea Encephalopathy Encounter for screening for malignant neoplasm of lung in current smoker with 30 pack year history or greater Essential (primary) hypertension Familial combined hyperlipidemia Gabapentin overdose GERD (gastroesophageal reflux disease) Greater trochanteric bursitis of left hip Health care maintenance Health care maintenance Heart murmur History of pneumonia Hyperlipidemia Hypothyroidism Infected dental carries Intermittent palpitations Leukocytosis Low back strain Monomorphic ventricular tachycardia Muscle spasm Neuroendocrine neoplasm of stomach Neuropathy Obesity Obstructive sleep apnea ELOY (obstructive sleep apnea) Osteoarthritis Pain of left thumb Polycythemia Polypharmacy Primary malignant neuroendocrine tumor of stomach PTSD (post-traumatic stress disorder) Sacral contusion Sick sinus syndrome Sinus pause Tobacco dependence syndrome Tobacco use disorder, continuous Vitamin D deficiency Home Medications diclofenac sodium 1 % topical gel 4 g topical ONCE PRN joint pain #100 grams 08/05/20 [Rx Last Taken Unknown] lorazepam 1 mg tablet 1 mg PO TID PRN Anxiety 10/25/21 [History Last Taken Unknown] potassium chloride 20 mEq tablet,extended release(part/cryst) 20 meq PO DAILY #90 tabs 05/07/22 [Rx Last Taken Unknown] buprenorphine 10 mcg/hour weekly transdermal patch 1 patch transdermal QWEEK 05/16/22 [History Last Taken Unknown] buspirone 7.5 mg tablet 7.5 mg PO TID 05/16/22 [History Last Taken Unknown] duloxetine 60 mg capsule,delayed release 120 mg PO DAILY 05/16/22 [History Last Taken Unknown] gabapentin 300 mg capsule 300 mg PO TID 05/16/22 [History Last Taken Unknown] tizanidine 4 mg tablet 4 mg PO TID PRN 05/16/22 [History Last Taken Unknown] trazodone 150 mg tablet 150 mg PO QHS 05/16/22 [History Last Taken Unknown] isosorbide mononitrate 60 mg tablet,extended release 24 hr 60 mg PO QAM #90 tabs 06/13/22 [Rx Last Taken Unknown] levothyroxine 25 mcg tablet See Rx Instructions .Route .COMPLEX #90 tabs 06/13/22 [Rx Last Taken Unknown] omeprazole 40 mg capsule,delayed release See Rx Instructions .Route .COMPLEX #90 caps 06/13/22 [Rx Last Taken Unknown] rosuvastatin 10 mg tablet See Rx Instructions .Route .COMPLEX #90 tabs 06/13/22 [Rx Last Taken Unknown] hydrochlorothiazide 12.5 mg tablet 12.5 mg PO DAILY #90 tabs 07/10/22 [Rx Last Taken Unknown] lisinopril 20 mg tablet 20 mg PO DAILY #90 tabs 08/28/22 [Rx Last Taken Unknown] ondansetron 8 mg disintegrating tablet See Rx Instructions .Route .COMPLEX #60 tabs 10/04/22 [Rx Last Taken Unknown] sheri (Ultra-Light Rollator [facility] [place] #1 ea 10/17/22 [Rx Last Taken Unknown] metoprolol tartrate 100 mg tablet 100 mg PO BID blood pressure, heart #180 tabs 10/28/22 [Rx Last Taken Unknown] amlodipine 5 mg tablet See Rx Instructions .Route .COMPLEX #90 tabs 12/03/22 [Rx Last Taken Unknown] Allergy/AdvReac Type Severity Reaction Status Date / Time latex Allergy Intermediate skin Verified 12/03/22 16:27 irritation aspirin AdvReac Severe Nausea/Vom/ Verified 12/03/22 16:27 Diarrhea erythromycin base AdvReac Severe Vomiting,di Verified 12/03/22 16:27 [Erythromycin Base] arrhea NSAIDS (Non-Steroidal AdvReac Severe Vomiting,di Verified 12/03/22 16:27 Anti-Inflamma arrhea Family History Daughter Multiple sclerosis Father CAD (coronary artery disease) Heart disease Multiple sclerosis Grandfather Heart disease Uncle Heart disease Aunt No problems noted. Sister Colon cancer Mother Hypertension Surgical History history excision neuroendocrine tumor History of appendectomy History of back surgery History of colonoscopy History of elbow surgery History of hysterectomy History of laparotomy History of left heart catheterization (08/17/21) History of resection of stomach Hx of cholecystectomy Presence of permanent cardiac pacemaker (2013) Social History Smoking Status: Current some day smoker tobacco type: cigarettes Tobacco: How many years used: 30 second hand exposure: Yes quit status: has quit before alcohol intake: never substance use type: does not use what type of physical activity do you participate in: none ivania/confucianism: None seatbelt use: always do you feel safe at home: Yes ROS ROS ED Constitutional Constitutional ED: Denies chills or fever(s) Eyes Eyes: Denies blurry vision or change in vision ENT ENT ED: Denies rhinorrhea or sore throat Cardiovascular Cardiovascular: Reports chest pain and palpitations Respiratory/Chest Respiratory/Chest: Denies cough or dyspnea Gastrointestinal Gastrointestinal: Reports nausea; Denies abdominal pain or vomiting Genitourinary Genitourinary ED: Denies dysuria or hematuria Musculoskeletal Musculoskeletal: Reports back pain and neck pain Integumentary Denies abscess or rash Neurologic Neurologic: Reports headache(s); Denies weakness Allergic/Immunologic Allergic/Immunologic ED: Denies mouth swelling or urticaria EXAM Physical Exam Const Vital Signs: 12/03/22 16:27 12/03/22 18:18 Temperature 97.6 F L Temperature Source Temporal Pulse Rate 53 L Respiratory Rate 14 Blood Pressure 132/75 H Blood Pressure Mean 94 Pulse Ox 98 Oxygen Delivery Method Room Air Room Air Positive well nourished, well developed and obese General Appearance ED: well developed Nutritional Appearance: obese HEENT normocephalic and atraumatic Eyes PERRL and EOMs intact bilaterally Neck supple and no JVD Chest Wall palpation of chest normal Resp normal respiratory effort and clear to auscultation bilaterally Effort and Inspection: Negative for respiratory distress Cardio regular rate and regular rhythm GI normal to inspection, nondistended, normoactive bowel sounds, soft to palpation, non-tender and non-distended Extremity normal to inspection General Extremety ED: Negative for edema or tenderness General Extremity: Negative for edema Neuro oriented x3, CN's II-XII intact bilaterally and no sensory deficits noted Sensorium / Orientation: awake and alert Motor Exam: strength 5/5 throughout Psych mental status grossly normal Heart Score History: Slightly/Non-Suspicious ECG: Normal Age: >45 - <65 years Risk Factors: >/= 3 Risk Factors or History of CAD Score: 3 MDM MDM MDM Narrative Medical decision making narrative: Differential diagnosis includes cardiac dysrhythmia, cardiac ischemia, pneumonia, pneumothorax, pulmonary embolism, GERD, musculoskeletal pain, and anxiety. EKG will be obtained to assess for cardiac dysrhythmia and cardiac ischemia. Chest x-ray will be obtained to assess for pneumonia and pneumothorax. CBC will be obtained to assess for leukocytosis and anemia. Basic metabolic profile will be obtained to assess for electrolyte abnormality and renal function. High-sensitivity troponin will be obtained to assess for cardiac ischemia. 2-hour repeat high-sensitivity troponin will be obtained to assess for ongoing cardiac ischemia. D-dimer will be obtained to assess for pulmonary embolism. Lab Data Attestation: I reviewed the patient's lab results. Lab results narrative: CBC was reviewed. There is a mild leukocytosis of 13.0. The remainder is within normal limits. Basic metabolic profile was reviewed. Creatinine was slightly elevated at 1.22. D-dimer was reviewed and was elevated at 0.79. Initial high-sensitivity troponin was reviewed and was normal at 6. 2-hour repeat high-sensitivity troponin was reviewed and was normal at 4. Labs: Laboratory Results - last 24 hr 12/03/22 12/03/22 16:45 19:44 WBC 13.0 H RBC 4.75 Hgb 13.7 Hct 41.4 MCV 87.2 MCH 28.8 MCHC 33.1 RDW Std Deviation 44.3 H RDW Coeff of Ross 13.7 Plt Count 354 MPV 9.5 Immature Gran % (Auto) 0.400 Neut % (Auto) 64.1 Lymph % (Auto) 28.0 [place] % (Auto) 5.7 Eos % (Auto) 1.5 Baso % (Auto) 0.3 Absolute Neuts (auto) 8.4 H Absolute Lymphs (auto) 3.65 Nucleated RBC % 0 D-Dimer Quant (PE/DVT) 0.79 H* Sodium 137 Potassium 4.3 Chloride 103 Carbon Dioxide 28.0 Anion Gap 6 BUN 15 Creatinine 1.22 H Estim Creat Clear Calc 40.24 Est GFR (MDRD) Af Amer 58 L Est GFR (MDRD) Non-Af 48 L BUN/Creatinine Ratio 12.3 Glucose 89 Calcium 9.3 Troponin I High Sens 6 4 Radiography Chest X-Ray - ED: 1 View, Read by ED Physician, Read by Radiologist and No Acute Disease Diagnostic Testing: Clinical Impression(s) from Imaging Studies Chest X-Ray 12/03/22 18:23 IMPRESSION: 1. Transvenous pacer leads without change. The RIGHT atrial lead is downward projecting and may not be completely engaged within the RIGHT atrial appendage however no interval change. 2. No evidence of acute cardiac pulmonary process. Electronically Signed: Sergio Gibson MD at 18:52 EDT , Chest CTA 12/03/22 21:26 IMPRESSION: Normal CTA chest examination, without a demonstrated pulmonary embolism or arterial dissection. Electronically Signed: Sergio Damon MD at 23:06 EDT , EKG Initial EKG: Attestation: I personally reviewed and interpreted this EKG as follows: Interpretation: No Acute Injury Pattern and Paced (Atrial paced rhythm with a rate of 60) Comments: EKG was obtained. On my independent interpretation, it shows an atrial paced rhythm with a rate of 60. MI interval was 212 ms. QRS interval was normal at 80 ms. QTc interval was normal at 452 ms. [place] was normal at 35. There are no acute ST or T wave changes noted. Prior EKG tracings: available for review Prior: Unchanged (10/23/2021) Treatment and Re-Evaluation :: Patient was advised of her findings. Patient was feeling better on reevaluation. Patient has a HEART score of 3. Patient was advised that this is low risk for acute cardiac event. Patient was instructed to follow-up with her primary care physician in 5 to 7 days. Patient understood and was agreeable with the plan. All questions were answered. Discharge Plan Triage Chief Complaint: Chest Pain ED Provider: Keon Ramirez Dx/Rx/DC Orders Clinical Impression: Essential (primary) hypertension, Tobacco use disorder, continuous, Chest pain Instructions: ED Chest Pain, Uncertain Cause Prescriptions: No Action duloxetine 60 mg capsule,delayed release(DR/EC) 120 mg PO DAILY Rx Instructions: rx by pallative care lisinopril 20 mg tablet 20 mg PO DAILY Qty: 90 1RF tizanidine 4 mg tablet 4 mg PO TID PRN trazodone 150 mg tablet 150 mg PO QHS Patient Comments: TAKE 1 TABLET BY MOUTH EVERYDAY AT BEDTIME gabapentin 300 mg capsule 300 mg PO TID Patient Comments: TAKE 1 CAPSULE BY MOUTH THREE TIMES A DAY buspirone 7.5 mg tablet 7.5 mg PO TID Patient Comments: TAKE 1 TABLET BY MOUTH THREE TIMES A DAY buprenorphine 10 mcg/hour patch weekly 1 patch transdermal QWEEK lorazepam 1 mg tablet 1 mg PO TID PRN (Reason: Anxiety) Patient Comments: TAKE 1 TABLET BY ORAL ROUTE UP TO 3 TIMES A DAY NEEDED FOR ANXIETY diclofenac sodium 1 % gel 4 g topical ONCE MDD 32g/day total PRN (Reason: joint pain) Qty: 100 1RF Rx Instructions: apply to single knee, ankle, foot; for foot includes sole/toes/top of foot potassium chloride 20 mEq tablet,ER particles/crystals 20 meq PO DAILY Qty: 90 2RF levothyroxine 25 mcg tablet See Rx Instructions .ROUTE .COMPLEX Qty: 90 1RF Dose Instruction: TAKE ONE TABLET BY MOUTH DAILY FOR THYROID Rx Instructions: TAKE ONE TABLET BY MOUTH DAILY FOR THYROID omeprazole 40 mg capsule,delayed release(DR/EC) See Rx Instructions .ROUTE .COMPLEX Qty: 90 1RF Dose Instruction: TAKE ONE CAPSULE BY MOUTH DAILY FOR STOMACH Rx Instructions: TAKE ONE CAPSULE BY MOUTH DAILY FOR STOMACH rosuvastatin 10 mg tablet See Rx Instructions .ROUTE .COMPLEX Qty: 90 1RF Dose Instruction: TAKE ONE TABLET BY MOUTH DAILY Rx Instructions: TAKE ONE TABLET BY MOUTH DAILY isosorbide mononitrate 60 mg tablet extended release 24 hr 60 mg PO QAM Qty: 90 3RF hydrochlorothiazide 12.5 mg tablet 12.5 mg PO DAILY Qty: 90 1RF ondansetron 8 mg tablet,disintegrating See Rx Instructions .ROUTE .COMPLEX Qty: 60 1RF Dose Instruction: TAKE ONE TABLET BY MOUTH EVERY 8 HOURS NEEDED FOR NAUSEA AND VOMITING Rx Instructions: TAKE ONE TABLET BY MOUTH EVERY 8 HOURS NEEDED FOR NAUSEA AND VOMITING (DME) Ultra-Light Rollator Misc See Rx Instructions .Route Qty: 1 0RF Rx Instructions: As directed metoprolol tartrate 100 mg tablet 100 mg PO BID Qty: 180 1RF Rx Instructions: TAKE 1 TABLET BY MOUTH TWICE A DAY FOR BLOOD PRESSURE/HEART amlodipine 5 mg tablet See Rx Instructions .ROUTE .COMPLEX Qty: 90 1RF Dose Instruction: TAKE ONE TABLET BY MOUTH DAILY Rx Instructions: TAKE ONE TABLET BY MOUTH DAILY Primary Care Provider: Charla Wadsworth Referrals: Charla Wadsworth MD [Primary Care Provider] - 5-7 Days Disposition Disposition: Home, Self Care
[2022-12-03 18:57] LABS: Absolute Lymphocyte Count 3.65 X10^3/uL (0.83-4.51); Absolute Neutrophil Count 8.4 X10^3/uL (2.0-7.7); Basophil# 0.04 X10^3/uL; Basophil% 0.3 % (0-1); Eosinophil# 0.19 X10^3/uL; Eosinophils% 1.5 % (0-5); Hematocrit 41.4 % (37-47); Hemoglobin 13.7 g/dL (12.0-15.0); Lymphocyte # 3.65 X10^3/ul (0.83-4.51); Mean Corp Hgb Conc 33.1 g/dL (32-36); Mean Corpuscular Hgb 28.8 pg (27.0-32.0); Mean Corpuscular Volume 87.2 fL (81-99); Mean Platelet Vol. 9.5 fl (6.2-12.0); Monocyte# 0.74 X10^3/uL; Monocyte% 5.7 % (0-10); NRBC Flagged by Analyzer 0 % (0-5); Neutrophil # 8.37 X10^3/uL (2.7-7.7); Neutrophil % 64.1 % (47-70); Platelet Count 354 K/mm3 (150-450); RBC Distribution Width CV 13.7 % (11.6-14.6); RBC Distribution Width SD 44.3 fl (35.1-43.9); Red Blood Count 4.75 M/mm3 (4.2-5.4)
[2022-12-03 19:00] VITALS: RESP 18
[2022-12-03 19:23] LABS: Anion Gap 6 (5-15); BUN 15 mg/dL (7-18); BUN/Creat Ratio 12.3 RATIO (10-20); Calcium,Total 9.3 mg/dL (8.5-10.1); Chloride 103 mmol/L (98-107); Creatinine, Serum 1.22 mg/dL (0.55-1.02); EST Glomerular Filtration Rate 48 mL/min (>60); Est Glom Filt Rate - Afr Amer 58 mL/min (>60); Estimated Creatinine Clearance 40.24 ml/min; Glucose 89 mg/dL (74-106); Potassium 4.3 mmol/L (3.5-5.1); Sodium Level 137 mmol/L (136-145); Troponin-I HS (w/2H Reflex) 6 pg/mL (3.0-54.0)
[2022-12-03 20:00] VITALS: RESP 18
[2022-12-03 20:49] LABS: Reflex Troponin-HS? (from REC) Y
[2022-12-03 20:51] LABS: D-Dimer Quantitative (DVT/PE) 0.79 FEU/ug/m (0.27-0.49)
[2022-12-03 21:00] VITALS: RESP 16
--- NOTE | 2022-12-03 21:26 | CT_ITS ---
STUDY: CTA CHEST REASON FOR EXAM: Female, 57 years old. Elevated D-dimer RADIATION DOSAGE (If Supplied By Facility): CTDIvol = ( 13.50 ) mGy, DLP = ( 490.63 ) mGycm TECHNIQUE: The examination was performed with the intravenous administration of IV 100mL Isovue-370. Post-processing of the angiographic images was performed, with multiplanar reformation and 3D reconstruction. Individualized dose optimization techniques were used for this CT. COMPARISON: 12/03/2022 FINDINGS: Left subclavian pacemaker. Normal enhancement of the main pulmonary artery and right and left pulmonary arteries. Normal enhancement of the bilateral peripheral pulmonary arteries. There is no demonstrated pulmonary embolism. Normal thoracic aorta and visualized great vessels. There is no demonstrated aortic dissection. Normal heart and pericardium. Normal mediastinum. Normal hilar regions. Normal visualized trachea and bronchi. The lungs are well expanded. Normal pulmonary parenchyma. Normal pleura. Normal chest wall structures. Normal osseous structures. Status post cholecystectomy. CT/CTA Chest W/WO Contrast IMPRESSION: Normal CTA chest examination, without a demonstrated pulmonary embolism or arterial dissection. Electronically Signed: Sergio Damon MD at 23:06 EDT ,
[2022-12-03 21:51] LABS: Troponin-I HS 4 pg/mL (3.0-54.0)
[2022-12-03 22:00] VITALS: RESP 16
[2022-12-03 23:00] VITALS: BP 148/72
== END 2022-12-03 23:40 | disposition home or self-care (01) ==
PROVIDERS: Emergency Provider Emergency Medicine; PCP Internal Medicine; Visit Provider Emergency Medicine
DX: R07.9 Chest pain, unspecified (principal); J44.9 Chronic obstructive pulmonary disease, unspecified; M54.2 Cervicalgia; R68.84 Jaw pain; I25.10 Atherosclerotic heart disease of native coronary artery without angina pectoris; I10 Essential (primary) hypertension; E78.00 Pure hypercholesterolemia, unspecified; F17.200 Nicotine dependence, unspecified, uncomplicated
CPT/HCPCS: 71045; 71275; 80048; 84484; 85025; 85379; 93005; 99285; Q9967; A4216

== ENCOUNTER → 2022-12-10 | Outpatient (CLI) | payer MEDICARE, MEDICAID, SELFPAY ==
--- NOTE | 2022-12-10 13:15 | CT_ITS ---
STUDY: CT PELVIS WITHOUT CONTRAST REASON FOR EXAM: Female, 57 years old. M16.12 Unilateral primary osteoarthritis, left hip -- ATTN LEFT HIP RADIATION DOSAGE (If Supplied By Facility): CTDIvol = ( 26.22 ) mGy, DLP = ( 864.26 ) mGycm TECHNIQUE: Transaxial imaging of the pelvis was performed with oral contrast, and without intravenous administration of contrast material. Multiplanar coronal and sagittal images were reformatted. Individualized dose optimization techniques were used for this CT. COMPARISON: None. FINDINGS: Normal urinary bladder. The patient is status post hysterectomy. Normal visualized small intestine. Normal visualized colon. There is no pelvic fluid. There is no pelvic mass lesion or lymphadenopathy. Normal visualized pelvic arteries. Normal abdominal wall. There are diffuse degenerative changes of the visualized lumbar spine. The patient is status post interpedicular screw fixation of the upper lumbar spine. There is evidence of bilateral sacroiliitis with sclerosis of both the sacrum and iliac bones. No significant abnormality of the left hip is seen. CT/Pelvis without IV Contrast IMPRESSION: Bilateral sacroiliitis. Electronically Signed: Ming Roberts MD at 14:51 EDT ,
== END | disposition home or self-care (01) ==
LOC: CT 13:13
PROVIDERS: PCP Internal Medicine; Referring Provider Anesthesiology Pain Medicine; Visit Provider Anesthesiology Pain Medicine
DX: M16.12 Unilateral primary osteoarthritis, left hip (principal)
CPT/HCPCS: 72192

== ENCOUNTER → 2023-01-30 | Outpatient (CLI) | payer MEDICARE, MEDICAID, SELFPAY ==
[2023-01-30 12:52] LABS: Absolute Lymphocyte Count 3.06 X10^3/uL (0.83-4.51); Absolute Neutrophil Count 9.7 X10^3/uL (2.0-7.7); Basophil# 0.06 X10^3/uL; Basophil% 0.4 % (0-1); Eosinophil# 0.11 X10^3/uL; Eosinophils% 0.8 % (0-5); Hematocrit 42.6 % (37-47); Hemoglobin 13.7 g/dL (12.0-15.0); Lymphocyte # 3.06 X10^3/ul (0.83-4.51); Lymphocyte % 22.4 % (19-41); Mean Corp Hgb Conc 32.2 g/dL (32-36); Mean Corpuscular Hgb 27.7 pg (27.0-32.0); Mean Corpuscular Volume 86.2 fL (81-99); Mean Platelet Vol. 9.6 fl (6.2-12.0); Monocyte# 0.63 X10^3/uL; Monocyte% 4.6 % (0-10); NRBC Flagged by Analyzer 0 % (0-5); Neutrophil # 9.72 X10^3/uL (2.7-7.7); Neutrophil % 71.2 % (47-70); Platelet Count 346 K/mm3 (150-450); RBC Distribution Width CV 14.2 % (11.6-14.6); RBC Distribution Width SD 44.7 fl (35.1-43.9); Red Blood Count 4.94 M/mm3 (4.2-5.4); White Blood Count 13.7 K/mm3 (4.4-11.0)
[2023-01-30 13:00] LABS: ALB/GLOB Ratio 0.7 RATIO (0.9-2.4); AST(SGOT) 20 U/L (15-37); Alanine Aminotransfer ALT/SGPT 20 U/L (13-56); Albumin, Serum 3.4 g/dL (3.2-5.0); Alkaline Phosphatase 122 U/L (45-117); Anion Gap 8 (5-15); BUN 10 mg/dL (7-18); BUN/Creat Ratio 9.9 RATIO (10-20); Calcium,Total 9.2 mg/dL (8.5-10.1); Chloride 104 mmol/L (98-107); Creatinine, Serum 1.01 mg/dL (0.55-1.02); EST Glomerular Filtration Rate 60 mL/min (>60); Est Glom Filt Rate - Afr Amer 73 mL/min (>60); Globulin 4.8 g/dL (2.2-4.2); Glucose 117 mg/dL (74-106); Protein, Total 8.2 g/dL (6.4-8.2); Sodium Level 142 mmol/L (136-145); Thyroid Stim Hormone (TSH) 1.23 uIU/mL (0.358-3.74)
== END | disposition home or self-care (01) ==
LOC: BIMLAB 10:35
PROVIDERS: PCP Internal Medicine; Referring Provider Internal Medicine; Visit Provider Internal Medicine
DX: E78.5 Hyperlipidemia, unspecified (principal); Z79.899 Other long term (current) drug therapy; D72.829 Elevated white blood cell count, unspecified; I10 Essential (primary) hypertension
CPT/HCPCS: 36415; 80053; 84443; 85025

== ENCOUNTER 2023-05-24 15:43 | Emergency (ER) | payer MEDICARE, MEDICAID, SELFPAY ==
[2023-05-24 15:44] VITALS: BP 110/73; PULSE 56; RESP 16; TEMP 36.9; O2SAT 97
--- NOTE | 2023-05-24 18:28 | ED.RN ---
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 Stating she needs to be seen immediately. RN explained that ER patients are given rooms based on severity and not on arrival. RN attempted to reassess pt pain and situation, pt angry and giving short answers. Pt is on phone demanding a ride home stating this RN told her she was not important enough.
--- NOTE | 2023-05-24 18:39 | ED.RN ---
Pt yelling at second interceptor operator about wait time and demanding a ride back to [facility]. This RN again explained that pts are brought back into the ER based on severity not arrival time. RN explained that pt is important and thinks she should be seen by a physician. Pt took wheelchair outside of the department.
--- NOTE | 2023-05-24 20:16 | ED.RN ---
Pt refusing vital signs and reassessment by this RN. Pt asked when it was going to be her turn for a bed. This RN stated that her chart was 2nd in the rack, but that could change based on EMS and emergent pts. Pt stated Bullshit pt then threw wristband at this RN. Pt stated she was going to marielos this RN for not being able to get her an ER room. Pt has left department.
== END 2023-05-24 20:11 | disposition left against medical advice (07) ==
LOC: ED 20:37
PROVIDERS: PCP Internal Medicine
DX: M54.9 Dorsalgia, unspecified (principal)
CPT/HCPCS: 99282

== ENCOUNTER 2023-07-12 00:37 | Emergency (ER) | payer MEDICARE, MEDICAID, SELFPAY ==
[2023-07-12 00:38] VITALS: BP 148/70; PULSE 55; RESP 10; TEMP 36.6; O2SAT 97; BMI 37.0
--- NOTE | 2023-07-12 00:50 | EKG12_ITS ---
Test Reason : CP Blood Pressure : / mmHG Vent. Rate : 060 BPM Atrial Rate : 060 BPM P-R Int : 232 ms QRS Dur : 086 ms QT Int : 468 ms P-R-T Axes : 057 056 055 degrees QTc Int : 468 ms Atrial-paced rhythm with prolonged AV conduction Abnormal ECG Confirmed by MARK GAUTAM, CHRIS ([id number]), food expeditor OTIS RUIZ ([id number]) on 07/15/2023 11:35:31 AM Referred By: PURVI Confirmed By:CHRIS FLORES MD
[2023-07-12 01:35] VITALS: PULSE 54; RESP 18
--- NOTE | 2023-07-12 01:45 | RAD_ITS ---
EXAM: XR CHEST, 2 VIEWS CLINICAL INDICATION: chest pain TECHNIQUE: Frontal and lateral views of the chest. COMPARISON: December 03, 2022 FINDINGS: LUNGS AND PLEURAL SPACES: Unremarkable. No consolidation or edema. No pneumothorax. No effusion. HEART: Stable left-sided AICD/pacer. Cardiac silhouette not enlarged. MEDIASTINUM: Central airways and mediastinal contour are unremarkable. BONES/JOINTS: Unremarkable. No acute fracture. SOFT TISSUES: Unremarkable. RAD/Chest PA and Lateral IMPRESSION: No acute disease. Electronically Signed: Panda Perez MD at 3:02 EDT ,
[2023-07-12 01:51] LABS: Absolute Lymphocyte Count 4.63 X10^3/uL (0.83-4.51); Absolute Neutrophil Count 5.3 X10^3/uL (2.0-7.7); Basophil# 0.05 X10^3/uL; Basophil% 0.5 % (0-1); Eosinophil# 0.29 X10^3/uL; Eosinophils% 2.6 % (0-5); Hematocrit 36.6 % (37-47); Hemoglobin 11.9 g/dL (12.0-15.0); Lymphocyte # 4.63 X10^3/ul (0.83-4.51); Lymphocyte % 41.9 % (19-41); Mean Corp Hgb Conc 32.5 g/dL (32-36); Mean Corpuscular Hgb 28.6 pg (27.0-32.0); Mean Platelet Vol. 9.5 fl (6.2-12.0); Monocyte% 6.3 % (0-10); NRBC Flagged by Analyzer 0 % (0-5); Neutrophil # 5.32 X10^3/uL (2.7-7.7); Neutrophil % 48.2 % (47-70); Platelet Count 204 K/mm3 (150-450); RBC Distribution Width CV 14.3 % (11.6-14.6); RBC Distribution Width SD 46.2 fl (35.1-43.9); Red Blood Count 4.16 M/mm3 (4.2-5.4); White Blood Count 11.1 K/mm3 (4.4-11.0)
[2023-07-12 02:00] VITALS: RESP 16
[2023-07-12 02:14] LABS: Anion Gap 4 (5-15); BUN 17 mg/dL (7-18); BUN/Creat Ratio 15.6 RATIO (10-20); Calcium,Total 8.6 mg/dL (8.5-10.1); Chloride 105 mmol/L (98-107); Creatinine, Serum 1.09 mg/dL (0.55-1.02); EST Glomerular Filtration Rate 55 mL/min (>60); Est Glom Filt Rate - Afr Amer 66 mL/min (>60); Estimated Creatinine Clearance 60.03 ml/min; Glucose 118 mg/dL (74-106); Potassium 3.6 mmol/L (3.5-5.1); Sodium Level 139 mmol/L (136-145); Troponin-I HS 5 pg/mL (3.0-54.0)
--- NOTE | 2023-07-12 02:56 | EDS_ITS ---
HPI History of Present Illness Chief Complaint: Chest Pain Informant: patient and EMS Narrative Narrative: Patient is a 57-year-old female with past medical history of coronary artery disease as well as sick sinus syndrome with pacemaker placement. She states shadi t she is in the process of potentially being evaluated for MS and had her legs give out on her causing her to fall down to her knees and then forward striking her chest. She denies striking her head or any loss of consciousness. She states she has noticed some pain along the left chest wall where her pacemaker sits. She states she is concerned she may have damaged the pacemaker and secondary to this called EMS to bring her in for evaluation. Patient also states she has been having intermittent chest discomfort for which she was advised to follow-up with her human resources benefits manager for but has not done so yet [facility] Medical History Abdominal pain Anemia Anxiety and depression Atherosclerotic heart disease of [place] coronary artery without angina pectoris Bacteria in urine Bone fracture CHI (closed head injury) Chronic lower back pain Chronic pain syndrome COPD (chronic obstructive pulmonary disease) Debility Diarrhea Encephalopathy Encounter for screening for malignant neoplasm of lung in current smoker with 30 pack year history or greater Essential (primary) hypertension Familial combined hyperlipidemia Gabapentin overdose GERD (gastroesophageal reflux disease) Greater trochanteric bursitis of left hip Health care maintenance Health care maintenance Heart murmur History of pneumonia Hyperlipidemia Hypothyroidism Infected dental carries Intermittent palpitations Leukocytosis Low back strain Lumbar radiculopathy Monomorphic ventricular tachycardia Muscle spasm Neuroendocrine neoplasm of stomach Neuropathy Obesity Obstructive sleep apnea ELOY (obstructive sleep apnea) Osteoarthritis Osteopenia (~10/2022) Pain of left thumb Polycythemia Polypharmacy Primary malignant neuroendocrine tumor of stomach PTSD (post-traumatic stress disorder) Sacral contusion Sick sinus syndrome Sinus pause Tobacco dependence syndrome Tobacco use disorder, continuous Vitamin D deficiency Home Medications diclofenac sodium 1 % topical gel 4 g topical ONCE PRN joint pain #100 grams 08/05/20 [Rx Last Taken Unknown] lorazepam 1 mg tablet 1 mg PO TID PRN Anxiety 10/25/21 [History Last Taken Unknown] duloxetine 60 mg capsule,delayed release 120 mg PO DAILY 05/16/22 [History Last Taken Unknown] gabapentin 300 mg capsule 300 mg PO TID 05/16/22 [History Last Taken Unknown] tizanidine 4 mg tablet 4 mg PO TID PRN 05/16/22 [History Last Taken Unknown] trazodone 150 mg tablet 150 mg PO QHS 05/16/22 [History Last Taken Unknown] isosorbide mononitrate 60 mg tablet,extended release 24 hr 60 mg PO QAM #90 tabs 06/13/22 [Rx Last Taken Unknown] ondansetron 8 mg disintegrating tablet See Rx Instructions .Route .COMPLEX #60 tabs 10/04/22 [Rx Last Taken Unknown] sheri (Ultra-[place] [facility] [place] #1 ea 10/17/22 [Rx Last Taken Unknown] amlodipine 5 mg tablet See Rx Instructions .Route .COMPLEX #90 tabs 12/03/22 [Rx Last Taken Unknown] hydrochlorothiazide 12.5 mg tablet See Rx Instructions .Route .COMPLEX #90 tabs 12/26/22 [Rx Last Taken Unknown] buprenorphine 20 mcg/hour weekly transdermal patch 1 patch transdermal QWEEK 01/30/23 [History Last Taken Unknown] buspirone 7.5 mg tablet 10 mg PO TID 01/30/23 [History Last Taken Unknown] nicotine 7 mg/24 hr daily transdermal patch 1 patch transdermal Q24H #28 ea 01/30/23 [Rx Last Taken Unknown] potassium chloride 20 mEq tablet,extended release(part/cryst) 20 meq PO DAILY PRN 01/30/23 [History Last Taken Unknown] denosumab 60 mg/mL subcutaneous syringe (Prolia) 60 mg subcut [id number] #1 mL 02/15/23 [Rx Last Taken Unknown] lisinopril 20 mg tablet 20 mg PO DAILY #90 tabs 02/20/23 [Rx Last Taken Unknown] rosuvastatin 10 mg tablet See Rx Instructions .Route .COMPLEX #90 tabs 03/05/23 [Rx Last Taken Unknown] levothyroxine 25 mcg tablet See Rx Instructions .Route .COMPLEX #90 tabs 03/06/23 [Rx Last Taken Unknown] omeprazole 40 mg capsule,delayed release See Rx Instructions .Route .COMPLEX #90 caps 03/06/23 [Rx Last Taken Unknown] oxycodone-acetaminophen 5 mg-325 mg tablet tab PO 03/26/23 [History Last Taken Unknown] metoprolol tartrate 100 mg tablet 100 mg PO BID blood pressure, heart #180 tabs 04/26/23 [Rx Last Taken Unknown] Allergy/AdvReac Type Severity Reaction Status Date / Time latex Allergy Intermediate skin Verified 07/12/23 00:37 irritation aspirin AdvReac Severe Nausea/Vom/ Verified 07/12/23 00:37 Diarrhea erythromycin base AdvReac Severe Vomiting,di Verified 07/12/23 00:37 [Erythromycin Base] arrhea NSAIDS (Non-Steroidal AdvReac Severe Vomiting,di Verified 07/12/23 00:37 Anti-Inflamma arrhea Family History Daughter Multiple sclerosis Father CAD (coronary artery disease) Heart disease Multiple sclerosis Grandfather Heart disease Uncle Heart disease Aunt No problems noted. Sister Colon cancer Mother Hypertension Surgical History history excision neuroendocrine tumor History of appendectomy History of back surgery History of colonoscopy History of elbow surgery History of hysterectomy History of laparotomy History of left heart catheterization (08/17/21) History of resection of stomach Hx of cholecystectomy Presence of permanent cardiac pacemaker (2013) Status post insertion of spinal cord stimulator Social History Smoking Status: Former smoker quit date: 03/11/15 Tobacco: How many years used: 30 second hand exposure: Yes quit status: has quit before alcohol intake: never substance use type: does not use what type of physical activity do you participate in: none ivania/yazidi: None seatbelt use: always do you feel safe at home: Yes ROS ROS ED Constitutional Constitutional ED: Denies chills or fever(s) ENT ENT ED: Denies sore throat Cardiovascular Cardiovascular: Reports chest pain Respiratory/Chest Respiratory/Chest: Denies cough or dyspnea Gastrointestinal Gastrointestinal: Denies abdominal pain, diarrhea, nausea or vomiting Genitourinary Genitourinary ED: Denies dysuria Musculoskeletal Musculoskeletal: Reports back pain and myalgias; Denies neck pain Integumentary Denies Abrasions Neurologic Neurologic: Denies headache(s) Hematologic/Lymphatic Hematologic/Lymphatic: Denies easy bleeding or easy bruising EXAM Physical Exam Const Vital Signs: 07/12/23 00:38 07/12/23 02:00 07/12/23 01:35 Temperature 98 F Temperature Source Temporal Pulse Rate 55 L 54 L Respiratory Rate 10 L 16 18 Blood Pressure 148/70 H Blood Pressure Mean 96 Pulse Ox 97 Oxygen Delivery Method 05/03/24 03:00 07/12/23 03:22 Temperature 97.6 F L Temperature Source Pulse Rate 70 64 Respiratory Rate 15 16 Blood Pressure 124/66 H 124/66 H Blood Pressure Mean 85 85 Pulse Ox 98 99 Oxygen Delivery Method Room Air Positive well nourished and well developed General Appearance ED: well developed; Negative for pallor HEENT HEENT Narrative: Normocephalic atraumatic No signs of depressed or basilar skull fracture Eyes PERRL and EOMs intact bilaterally Eyes Narrative: No hyphema noted General Eye ED: Negative for scleral icterus Neck supple Neck Narrative: No bony deformity or step-off of the cervical spine no midline tenderness to palpation Chest Wall Chest Narrative: Patient has pain on palpation along the left anterior chest wall over top the pacemaker insertion site. There is no obvious bony deformity or crepitance. No overlying abrasions or ecchymosis. No erythema or warmth. Patient does state that the pain with palpation along the pacemaker insertion site is the same chest pain she has been experiencing Resp normal respiratory effort and clear to auscultation bilaterally Resp Narrative: Breath sounds are diminished throughout but overall clear to auscultation without signs of respiratory distress Cardio regular rate and regular rhythm GI non-tender, non-distended and no masses GI Narrative: Abdomen is soft nontender nondistended with normal active bowel sounds No voluntary guarding or rigidity or pulsatile mass Auscultation: normoactive bowel sounds Palpation: soft Extremity normal to inspection Extremity Narrative: Pelvis is stable there is no shortening or external rotation of either lower extremity No obvious bony injury or joint effusion noted. Neuro oriented x3 and CN's II-XII intact bilaterally Sensorium / Orientation: alert Psych Psych Narrative: Patient has a flat affect Skin no rashes or lesions noted and no wounds General Skin Exam: Negative for jaundice or pallor MDM MDM MDM Narrative Medical decision making narrative: Patient presented to the ER mildly hypertensive otherwise with stable vitals. She reported that her legs simply gave out and this was not lightheadedness dizziness or syncope. She also denies striking her head or any loss of consciousness or blood thinner use so I felt no need for a syncope workup or head CT. With chest wall pain near the pacemaker there is concern for pacemaker derangement or fracture of the leads. Chest x-ray was obtained which revealed no acute changes to the pacemaker and also revealed no obvious rib fracture or pneumothorax. As the patient did report that she has had intermittent chest discomfort for the past few weeks and does have known coronary artery disease a troponin and EKG were obtained as well. EKG showed a paced rhythm without ischemic changes and troponin was normal going against acute coronary syndrome. Therefore at this time as chest x-ray confirms no lung pathology such as pneumonia pneumothorax or derangement to the pacemaker and blood work confirms no signs of acute coronary syndrome I do not feel there is need for further workup and patient is otherwise safe for discharge History & Record Review Discussion w/independent historian: Patient Lab Data Attestation: I reviewed the patient's lab results. Labs: Laboratory Results - last 24 hr 07/12/23 01:25 WBC 11.1 H RBC 4.16 L Hgb 11.9 L Hct 36.6 L MCV 88.0 MCH 28.6 MCHC 32.5 RDW Std Deviation 46.2 H RDW Coeff of Ross 14.3 Plt Count 204 MPV 9.5 Immature Gran % (Auto) 0.500 Neut % (Auto) 48.2 Lymph % (Auto) 41.9 H Rhea % (Auto) 6.3 Eos % (Auto) 2.6 Baso % (Auto) 0.5 Absolute Neuts (auto) 5.3 Absolute Lymphs (auto) 4.63 H Nucleated RBC % 0 Sodium 139 Potassium 3.6 Chloride 105 Carbon Dioxide 30.0 Anion Gap 4 L BUN 17 Creatinine 1.09 H Estim Creat Clear Calc 60.03 Est GFR (MDRD) Af Amer 66 Est GFR (MDRD) Non-Af 55 L BUN/Creatinine Ratio 15.6 Glucose 118 H Calcium 8.6 Troponin I High Sens 5 Radiography Diagnostic Testing: Clinical Impression(s) from Imaging Studies Chest X-Ray 07/12/23 01:45 IMPRESSION: No acute disease. Electronically Signed: Panda Perez MD at 3:02 EDT , Chest x-ray as interpreted by the emergency medicine physician reveals no acute infiltrate pneumothorax pleural effusion and that displaced the pacemaker hardware to be intact and in place without fracture of the leads Discharge Plan Triage Chief Complaint: Chest Pain ED Provider: Panda Rowe Dx/Rx/DC Orders Clinical Impression: Acute chest wall pain, Sick sinus syndrome, Essential (primary) hypertension, Status post placement of cardiac pacemaker Instructions: ED Chest Pain, Uncertain Cause, ED Chest Wall Contusion Prescriptions: No Action duloxetine 60 mg capsule,delayed release(DR/EC) 120 mg PO DAILY Rx Instructions: rx by pallative care tizanidine 4 mg tablet 4 mg PO TID PRN trazodone 150 mg tablet 150 mg PO QHS Patient Comments: TAKE 1 TABLET BY MOUTH EVERYDAY AT BEDTIME gabapentin 300 mg capsule 300 mg PO TID Patient Comments: TAKE 1 CAPSULE BY MOUTH THREE TIMES A DAY buspirone 7.5 mg tablet 10 mg PO TID Patient Comments: TAKE 1 TABLET BY MOUTH THREE TIMES A DAY buprenorphine 20 mcg/hour patch weekly 1 patch transdermal QWEEK potassium chloride 20 mEq tablet,ER particles/crystals 20 meq PO DAILY PRN nicotine 7 mg/24 hr patch 24 hour 1 patch transdermal Q24H Qty: 28 2RF oxycodone-acetaminophen 5-325 mg tablet PO Patient Comments: TAKE 1 TABLET BY MOUTH up to TWICE DAILY lorazepam 1 mg tablet 1 mg PO TID PRN (Reason: Anxiety) Patient Comments: TAKE 1 TABLET BY ORAL ROUTE UP TO 3 TIMES A DAY NEEDED FOR ANXIETY diclofenac sodium 1 % gel 4 g topical ONCE MDD 32g/day total PRN (Reason: joint pain) Qty: 100 1RF Rx Instructions: apply to single knee, ankle, foot; for foot includes sole/toes/top of foot isosorbide mononitrate 60 mg tablet extended release 24 hr 60 mg PO QAM Qty: 90 3RF ondansetron 8 mg tablet,disintegrating See Rx Instructions .ROUTE .COMPLEX Qty: 60 1RF Dose Instruction: TAKE ONE TABLET BY MOUTH EVERY 8 HOURS NEEDED FOR NAUSEA AND VOMITING Rx Instructions: TAKE ONE TABLET BY MOUTH EVERY 8 HOURS NEEDED FOR NAUSEA AND VOMITING (DME) Ultra-Light Rollator Misc See Rx Instructions .Route Qty: 1 0RF Rx Instructions: As directed amlodipine 5 mg tablet See Rx Instructions .ROUTE .COMPLEX Qty: 90 1RF Dose Instruction: TAKE ONE TABLET BY MOUTH DAILY Rx Instructions: TAKE ONE TABLET BY MOUTH DAILY hydrochlorothiazide 12.5 mg tablet See Rx Instructions .ROUTE .COMPLEX Qty: 90 1RF Dose Instruction: TAKE 1 TABLET BY MOUTH EVERY DAY Rx Instructions: TAKE 1 TABLET BY MOUTH EVERY DAY Prolia 60 mg/mL syringe 60 mg subcut [id number] Qty: 1 2RF lisinopril 20 mg tablet 20 mg PO DAILY Qty: 90 1RF rosuvastatin 10 mg tablet See Rx Instructions .ROUTE .COMPLEX Qty: 90 1RF Dose Instruction: TAKE ONE TABLET BY MOUTH DAILY Rx Instructions: TAKE ONE TABLET BY MOUTH DAILY omeprazole 40 mg capsule,delayed release(DR/EC) See Rx Instructions .ROUTE .COMPLEX Qty: 90 1RF Dose Instruction: TAKE ONE CAPSULE BY MOUTH DAILY FOR STOMACH Rx Instructions: TAKE ONE CAPSULE BY MOUTH DAILY FOR STOMACH levothyroxine 25 mcg tablet See Rx Instructions .ROUTE .COMPLEX Qty: 90 1RF Dose Instruction: TAKE ONE TABLET BY MOUTH DAILY FOR THYROID Rx Instructions: TAKE ONE TABLET BY MOUTH DAILY FOR THYROID metoprolol tartrate 100 mg tablet 100 mg PO BID Qty: 180 1RF Rx Instructions: TAKE 1 TABLET BY MOUTH TWICE A DAY FOR BLOOD PRESSURE/HEART Primary Care Provider: Charla Wadsworth Referrals: Charla Wadsworth MD [Primary Care Provider] - Activity Restrictions/Additional Instructions: Your workup today shows your pacemaker is functioning properly and that there is no signs of physical damage to it. X-ray also shows no sign of rib fracture or hole in the lung and there has been no findings of active heart damage. Therefore continue all of your home medications as directed by your doctor and follow-up with your doctor/human resources benefits manager for further evaluation Disposition Disposition: Home, Self Care Discharge Date/Time: 07/12/23 03:35
[2023-07-12 03:00] VITALS: BP 124/66; PULSE 70; RESP 15; O2SAT 98
[2023-07-12 03:22] VITALS: BP 124/66; PULSE 64; RESP 16; TEMP 36.4; O2SAT 99
== END 2023-07-12 03:35 | disposition home or self-care (01) ==
PROVIDERS: Emergency Provider Emergency Medicine; PCP Internal Medicine; Visit Provider Emergency Medicine
DX: R07.89 Other chest pain (principal); J44.9 Chronic obstructive pulmonary disease, unspecified; I49.5 Sick sinus syndrome; I25.10 Atherosclerotic heart disease of native coronary artery without angina pectoris; I10 Essential (primary) hypertension; G89.4 Chronic pain syndrome; E78.5 Hyperlipidemia, unspecified; E03.9 Hypothyroidism, unspecified; Z79.890 Hormone replacement therapy; Z79.899 Other long term (current) drug therapy; Z87.891 Personal history of nicotine dependence; Z95.0 Presence of cardiac pacemaker
CPT/HCPCS: 71046; 80048; 84484; 85025; 93005; 99284; A4216

== ENCOUNTER → 2023-07-16 | Outpatient (CLI) | payer MEDICARE, MEDICAID, SELFPAY ==
--- NOTE | 2023-07-16 15:00 | LES_PTH ---
PATIENT: RAMSES BRADSHAW LOC: [facility] U#:[id number] AGE/SX: 57/F ROOM: RE07/16/[address]: Dr. Clarissa Jose MD : 1965 BED: DIS: 07/16/2023 SPEC #: [id number] RECD: 07/16/23 16:08 STATUS: MARYANN TAMIKA #: [id number] LILLIE: 07/16/23 15:[address]: Clarissa Jose DEPT: SURGICAL PATHOLOGY RECD BY: Gardenia Yap ENTERED: 07/17/23 07:22 SP TYPE: Lesion OTHR DR: Dr. Charla Wadsworth MD Tissues: Skin of abdomen, NOS Procedures: Surgery Specimen Level IV HEADER OPERATION: Excision of right lower quadrant skin lesion PRE-OP DIAGNOSIS: Right lower quadrant abdominal skin lesion TISSUE SUBMITTED: Right lower quadrant abdomen skin lesion- long stitch lateral and short stitch superior MICROSCOPIC DIAGNOSIS Right lower quadrant abdominal skin lesion, excisional biopsy: Invasive well differentiated squamous cell carcinoma, keratoacanthomas type, completely excised. Actinic keratosis with mild atypia. See comment. / 07/18/23 COMMENT The tumor measures 3.0 cm in greatest dimension and up to 0.8 cm in depth. Perineural and lymph-vascular invasion are not seen. MICROSCOPIC DESCRIPTION Slides are reviewed. GROSS DESCRIPTION Received in fixative is one container labeled with the patient's name and designated Right lower quadrant skin lesion. The specimen consists of a piece of aburto-white skin ellipse measuring 6.0 x 3.0cm and up to 0.8cm in thickness. A brown skin lesion is noted on the surface measuring 2.3 x 3.0 x 0.8cm. The specimen is inked as follows: Superior margin- black, inferior margin- blue, lateral tip- yellow, medial tip- green. The specimen is serially sectioned and submitted entirely in 10 cassettes. Cassette 1 contains lateral and medial tip of the specimen. [facility] 07/17/23 TC:0 CPT:85992
== END | disposition home or self-care (01) ==
LOC: LABSPEC 16:39
PROVIDERS: PCP Internal Medicine; Referring Provider Surgery; Visit Provider Surgery
DX: C44.529 Squamous cell carcinoma of skin of other part of trunk (principal); L57.0 Actinic keratosis
CPT/HCPCS: 88305

== ENCOUNTER 2023-07-30 16:14 | Emergency (ER) | payer MEDICARE, MEDICAID, SELFPAY ==
[2023-07-30 16:16] VITALS: BP 103/71; PULSE 58; RESP 16; TEMP 36.2; O2SAT 97; BMI 33.3
--- NOTE | 2023-07-30 16:20 | RAD_ITS ---
STUDY: X-RAY - RIGHT KNEE REASON FOR EXAM: Female, 57 years old. FALL TECHNIQUE: 4 view(s) of the knee. COMPARISON: November 24, 2022. FINDINGS: Normal visualized distal femur. Normal visualized proximal tibia and fibula. Normal proximal tibiofibular articulation. Narrowed medial femorotibial compartment. Normal lateral femorotibial compartment. Mildly narrowed patellofemoral articulation and small suprapatellar spur. The soft tissue structures are unremarkable. RAD/Knee 3 Views IMPRESSION: Degenerative changes. No acute fracture or dislocation Electronically Signed: Mainor Trujillo MD at 16:48 EDT Reading Location ID and State: [facility] / [place] Tel , Service support ,
--- NOTE | 2023-07-30 16:20 | RAD_ITS ---
STUDY: X-RAY - RIGHT ANKLE REASON FOR EXAM: Female, 57 years old. FALL TECHNIQUE: 3 view(s) of the ankle. COMPARISON: None. FINDINGS: Normal visualized distal tibia and fibula. Normal medial and lateral malleoli. Normal tibiotalar articulation and ankle mortise. Normal visualized talus and calcaneus. The visualized subtalar, talonavicular, calcaneocuboid and tarsal articulations are normal. Soft tissue swelling overlying the lateral malleolus.. There is narrowing of the tibiotalar and tibiofibular joint spaces with bilateral joint mice likely due to old trauma RAD/Ankle min 3 Views IMPRESSION: Lateral malleolus sprain. Degenerative changes with probable old posttraumatic joint mice. No acute fracture or dislocation Electronically Signed: Mainor Trujillo MD at 16:47 EDT ,
--- NOTE | 2023-07-30 18:54 | ED.RN ---
PT WHEELED. SELF OUT OF ER. STATES SHE WAS TIRED OF WAITING AND HAVE DR RICHARD TOMORROW
== END 2023-07-30 18:25 | disposition left against medical advice (07) ==
LOC: ED 19:06
PROVIDERS: PCP Internal Medicine
DX: M25.571 Pain in right ankle and joints of right foot (principal); M25.561 Pain in right knee; R10.31 Right lower quadrant pain; Z53.21 Procedure and treatment not carried out due to patient leaving prior to being seen by health care provider
CPT/HCPCS: 73562; 73610

== ENCOUNTER → 2023-07-31 | Outpatient (CLI) | payer MEDICARE, MEDICAID, SELFPAY ==
[2023-07-31 15:10] LABS: Absolute Lymphocyte Count 4.39 X10^3/uL (0.83-4.51); Absolute Neutrophil Count 7.3 X10^3/uL (2.0-7.7); Basophil# 0.06 X10^3/uL; Basophil% 0.5 % (0-1); Eosinophil# 0.19 X10^3/uL; Eosinophils% 1.5 % (0-5); Hematocrit 41.7 % (37-47); Hemoglobin 13.8 g/dL (12.0-15.0); Lymphocyte # 4.39 X10^3/ul (0.83-4.51); Lymphocyte % 34.5 % (19-41); Mean Corp Hgb Conc 33.1 g/dL (32-36); Mean Corpuscular Hgb 29.4 pg (27.0-32.0); Mean Corpuscular Volume 88.9 fL (81-99); Mean Platelet Vol. 9.6 fl (6.2-12.0); Monocyte# 0.78 X10^3/uL; Monocyte% 6.1 % (0-10); NRBC Flagged by Analyzer 0 % (0-5); Neutrophil # 7.26 X10^3/uL (2.7-7.7); Platelet Count 263 K/mm3 (150-450); RBC Distribution Width CV 13.8 % (11.6-14.6); RBC Distribution Width SD 44.5 fl (35.1-43.9); Red Blood Count 4.69 M/mm3 (4.2-5.4); White Blood Count 12.7 K/mm3 (4.4-11.0)
[2023-07-31 15:46] LABS: ALB/GLOB Ratio 0.9 RATIO (0.9-2.4); AST(SGOT) 21 U/L (15-37); Alanine Aminotransfer ALT/SGPT 19 U/L (13-56); Alkaline Phosphatase 124 U/L (45-117); Anion Gap 8 (5-15); BUN 18 mg/dL (7-18); BUN/Creat Ratio 14.5 RATIO (10-20); Chloride 104 mmol/L (98-107); Cholesterol 180 mg/dL (200); Creatinine, Serum 1.24 mg/dL (0.55-1.02); EST Glomerular Filtration Rate 47 mL/min (>60); Est Glom Filt Rate - Afr Amer 57 mL/min (>60); Globulin 4.5 g/dL (2.2-4.2); Glucose 109 mg/dL (74-106); High Density Lipoprotein 34 mg/dL; Magnesium 1.9 mg/dL (1.6-2.6); Potassium 3.8 mmol/L (3.5-5.1); Protein, Total 8.5 g/dL (6.4-8.2); Sodium Level 136 mmol/L (136-145); Triglycerides 324 mg/dL; Very Low Density Lipoprotein 65 mg/dL (5-40)
== END | disposition home or self-care (01) ==
LOC: BIMLAB 11:50
PROVIDERS: PCP Internal Medicine; Visit Provider Internal Medicine
DX: E78.2 Mixed hyperlipidemia (principal); I10 Essential (primary) hypertension
CPT/HCPCS: 36415; 80053; 80061; 83735; 85025

== ENCOUNTER 2023-08-01 06:36 | Day surgery (SDC) | payer MEDICARE, MEDICAID, SELFPAY ==
[2023-08-01] VITALS (9 sets, daily range): BP systolic 89–119; BP diastolic 56–85; PULSE 53–60; RESP 16; TEMP 36.2–36.6; O2SAT 90–99; BMI 34.9
--- NOTE | 2023-08-01 | LIP_PTH ---
PATIENT: RAMSES BRADSHAW LOC: [facility] [place] U#:[id number] AGE/SX: 57/F ROOM: RE08/01/[address]: Dr. Clarissa Jose MD : 1965 BED: DIS: 08/01/2023 SPEC #: [id number] RECD: 08/01/23 13:18 STATUS: MARYANN TAMIKA #: [id number] LILLIE: 08/01/23 00:[address]: Clarissa Jose DEPT: SURGICAL PATHOLOGY RECD BY: Dev Delaney ENTERED: 08/01/23 13:20 SP TYPE: LIPOMA OTHR DR: Dr. Charla Wadsworth MD Tissues: A - Skin of abdomen, NOS B - Soft tissues, NOS Procedures: Surgery Specimen Level III Surgery Specimen Level IV HEADER OPERATION: Excision, left shoulder lipoma and excision for margins right lower quadrant PRE-OP DIAGNOSIS: Mass of skin of shoulder, skin lesion TISSUE SUBMITTED: A- Right lower quadrant re-excision for margins- short stitch mak superior, long stitch mak lateral, single short stitch mak previous lesion, B- Left shoulder lipoma MICROSCOPIC DIAGNOSIS A- Skin and soft tissue, right lower quadrant, re-excision: Skin with actinic change. Cicatrix. Microabscesses with acute and chronic inflammation, suture granulomas and fat necrosis. Negative for malignancy. Margins of excision with no pathologic change. B. Soft tissue mass of left shoulder, excision: Mature adipose tissue consistent with lipoma. See comment. GABBY/ 08/07/23 COMMENT B. Reference is made to the patient's previous skin lesion biopsy from right lower quadrant ([id number]) in which invasive well differentiated squamous cell carcinoma was identified. MICROSCOPIC DESCRIPTION Slides are reviewed. GROSS DESCRIPTION A. Received in fixative is one container labeled with the patient's name and designated Right lower quadrant re-excision. The specimen consists of an ellipse of light aburto skin with recent scar and attached fibrofatty tissue. The skin fragment measures 6.5 x 1.5cm. The attached fibrofatty tissue measures 6.5 x 2.5 x 2.5cm. The specimen is inked as follows: Superior-blue, inferior-green, medial-red, lateral-orange, deep surface-black. The specimen is inked, serially sectioned along its narrow access and totally submitted in thirteen cassettes. Specimen is submitted after additional fixation. B. Received in fixative is one container labeled with the patient's name and designated Left shoulder lipoma. The specimen consists of multiple irregular fragments of aburto-yellow fatty tissue measuring in aggregate 7.0 x 6.0 x 2.5cm. Serial sections reveal homogenous yellow cut surfaces. Craft Superintendent sections are submitted in two cassettes. GABBY/ 08/02/2023 TC:2 CPT:86742,40156
--- NOTE | 2023-08-01 07:09 | HP.PCM_ITS ---
History and Physical Date of Admission: 08/01/23 Date of Service: 07/16/23 MR#: [id number] Acct: [id number] Name: RAMSES BRADSHAW Rep #: [id number] : 1965 Provider: Dr. Clarissa Jose MD Age/Sex: 57/F Location: [facility] Status: Signed Intake Vital Signs 05/23/2414:44 07/12/2399:38 07/15/2413:45 Height 5 ft 2 in 5 ft 2 in BP 88/60 L Blood Pressure Location Rt brachial Position Sitting Respiration 17 Pulse 60 Pulse Source Monitor Pulse Oximetry (%) 95 Oxygen Delivery Method room air Intake Visit Reasons: LUMP ON ARM Chief Complaint: lump on arm/shoulder Is patient in pain?: No Allergies latex Allergy (Intermediate, Verified 07/16/23 14:45) skin irritationaspirin Adverse Reaction (Severe, Verified 07/16/23 14:45) Nausea/Vom/Diarrheaerythromycin base [Erythromycin Base] Adverse Reaction (Severe, Verified 07/16/23 14:45) Vomiting,diarrheaNSAIDS (Non-Steroidal Anti-Inflamma Adverse Reaction (Severe, Verified 07/16/23 14:45) Vomiting,diarrhea Medications diclofenac sodium 1 % topical gel 4 g topical ONCE PRN joint pain #100 grams 08/05/20 [Rx Confirmed 03/26/23] duloxetine 60 mg capsule,delayed release 120 mg PO DAILY 05/16/22 [History Confirmed 07/16/23] gabapentin 300 mg capsule 300 mg PO TID 05/16/22 [History Confirmed 07/16/23] tizanidine 4 mg tablet 4 mg PO TID PRN 05/16/22 [History Confirmed 07/16/23] trazodone 150 mg tablet 150 mg PO QHS 05/16/22 [History Confirmed 07/16/23] isosorbide mononitrate 60 mg tablet,extended release 24 hr 60 mg PO QAM #90 tabs 06/13/22 [Rx Confirmed 07/16/23] ondansetron 8 mg disintegrating tablet See Rx Instructions .Route .COMPLEX #60 tabs 10/04/22 [Rx Confirmed 07/16/23] hseri (Ultra-Light Rollator misc) #1 ea 10/17/22 [Rx Confirmed 03/26/23] amlodipine 5 mg tablet See Rx Instructions .Route .COMPLEX #90 tabs 12/03/22 [Rx Confirmed 07/16/23] hydrochlorothiazide 12.5 mg tablet See Rx Instructions .Route .COMPLEX #90 tabs 12/26/22 [Rx Confirmed 07/16/23] buprenorphine 20 mcg/hour weekly transdermal patch 1 patch transdermal QWEEK 01/30/23 [History Confirmed 03/26/23] buspirone 7.5 mg tablet 10 mg PO TID 01/30/23 [History Confirmed 07/16/23] nicotine 7 mg/24 hr daily transdermal patch 1 patch transdermal Q24H #28 ea 01/30/23 [Rx Confirmed 03/26/23] potassium chloride 20 mEq tablet,extended release(part/cryst) 20 meq PO DAILY PRN 01/30/23 [History Confirmed 07/16/23] denosumab 60 mg/mL subcutaneous syringe (Prolia) 60 mg subcut [id number] #1 mL 02/15/23 [Rx Confirmed 07/16/23] lisinopril 20 mg tablet 20 mg PO DAILY #90 tabs 02/20/23 [Rx Confirmed 07/16/23] rosuvastatin 10 mg tablet See Rx Instructions .Route .COMPLEX #90 tabs 03/05/23 [Rx Confirmed 07/16/23] levothyroxine 25 mcg tablet See Rx Instructions .Route .COMPLEX #90 tabs 03/06/23 [Rx Confirmed 07/16/23] omeprazole 40 mg capsule,delayed release See Rx Instructions .Route .COMPLEX #90 caps 03/06/23 [Rx Confirmed 07/16/23] oxycodone-acetaminophen 5 mg-325 mg tablet tab PO 03/26/23 [History Confirmed 07/16/23] metoprolol tartrate 100 mg tablet 100 mg PO BID blood pressure, heart #180 tabs 04/26/23 [Rx Confirmed 07/16/23] clonazepam 0.5 mg tablet 0.5 mg PO TID 07/16/23 [History Confirmed 07/16/23] [facility] Medical History Abdominal pain Anemia Anxiety and depression Atherosclerotic heart disease of [place] coronary artery without angina pectoris Bacteria in urine Bone fracture CHI (closed head injury) Chronic lower back pain Chronic pain syndrome COPD (chronic obstructive pulmonary disease) Debility Diarrhea Encephalopathy Encounter for screening for malignant neoplasm of lung in current smoker with 30 pack year history or greater Essential (primary) hypertension Familial combined hyperlipidemia Gabapentin overdose GERD (gastroesophageal reflux disease) Greater trochanteric bursitis of left hip Health care maintenance Health care maintenance Heart murmur History of pneumonia Hyperlipidemia Hypothyroidism Infected dental carries Intermittent palpitations Leukocytosis Low back strain Lumbar radiculopathy Monomorphic ventricular tachycardia Muscle spasm Neuroendocrine neoplasm of stomach Neuropathy Obesity Obstructive sleep apnea ELOY (obstructive sleep apnea) Osteoarthritis Osteopenia (~10/2022) Pain of left thumb Polycythemia Polypharmacy Primary malignant neuroendocrine tumor of stomach PTSD (post-traumatic stress disorder) Sacral contusion Sick sinus syndrome Sinus pause Tobacco dependence syndrome Tobacco use disorder, continuous Vitamin D deficiency Surgical History history excision neuroendocrine tumor History of appendectomy History of back surgery History of colonoscopy History of elbow surgery History of hysterectomy History of laparotomy History of left heart catheterization (08/17/21) History of resection of stomach Hx of cholecystectomy Presence of permanent cardiac pacemaker (2013) Status post insertion of spinal cord stimulator Family History Daughter Multiple sclerosisFather CAD (coronary artery disease) Heart disease Multiple sclerosisGrandfather Heart diseaseUncle Heart diseaseAunt No problems noted. Sister Colon cancerMother Hypertension Social History (Updated 07/16/23 @ 14:44 by Paty Tran) Smoking Status: Current every day smoker tobacco type: cigarettes Tobacco: How many years used: 30 second hand exposure: Yes quit status: has quit before alcohol intake: never substance use type: does not use what type of physical activity do you participate in: none ivania/confucianism: None seatbelt use: always do you feel safe at home: Yes HPI HPI HPI: 37-year-old female presents due to left shoulder subcutaneous skin lesion as well as a right lower quadrant abdominal skin lesion. Patient states that the 1 in the right lower quadrant has gotten a lot bigger over the last 3 months and is tender to palpation. Patient states he left shoulder 1 was more painful before she got her electric motorized wheelchair. ROS General General: Yes weight change and fatigue; No appetite, colon cancer, breast cancer or weakness HEENT HEENT: Yes difficulty swallowing; No eye injury, eye surgery, swollen glands or hoarseness Endo Endocrine: Yes thyroid disease; No diabetes mellitus, thyroid cancer, Hair loss, heat intolerance or cold intolerance Skin Skin: Yes changing moles; No rash Musc Musculoskeletal: Yes back problems and arthritis; No rheumatoid arthritis, gout or joint pain Cardio Cardiovascular: Yes pacemaker, heart disease and high blood pressure; No murmur, atrial fibrillation, heart attack, heart stent, palpitations, shortness of breat with exertion or chest pain Psych Psychiatric: Yes depression and anxiety; No hearing voices Resp Respiratory: Yes shortness of breath, Yes sleep apnea, No cough, Yes COPD, No asthma, No emphysema and No wheezing Gastro Gastrointestinal: Yes abdominal pain, Yes nausea or vomiting, Yes diarrhea, No constipation, No blood in stool, Yes acid reflux, No hemorrhoids, No ulcers, No gallbladder problem and No black,tarry stools [place] Hematologic: No blood thinners, No blood disorders, No bleeding, Yes anemia and No blood clots Neuro Neurologic: No system reviewed and no additional complaints, except as documented, No as per HPI, No abnormal gait, No abnormal hearing, No abnormal movements, No abnormal speech, No behavioral changes, No burning sensations, No confusion, No convulsions, No disequilibrium, No dizziness, No localized weakness, No frequent falls, No headache(s), No lack of coordination, No loss of vision, No memory loss, Yes numbness, No other visual disturbances, No radicular pain, No restless legs, No sensory deficit, No syncope, Yes tingling, No tremor(s), No weakness and No other Exam Const General: cooperative [facility] Head: normocephalic and atraumatic Neck Neck: supple Resp Effort & Inspection: normal respiratory effort Cardio Rate: regular rate GI Inspection: non-distended Palpation: soft, no hernias and tender (Tender focally at the right lower quadrant skin lesion) Skin Other: Left posterior shoulder 5 x 5 cm subcutaneous mass consistent with a lipoma on bedside ultrasound, right lower quadrant skin lesion 3 x 3 cm fungating skin lesion suspicious for malignancy Neuro General: CN's II-XI intact bilaterally Extrem General: normal to inspection Psych Mental Status: mental status grossly normal Attitude: cooperative Office Procedures Excision of skin Provider Documentation Provider Documentation: Right lower quadrant skin lesion prepped draped usual sterile fashion with Betadine after informed consent obtained. Local anesthesia was infiltrated. Lesion is 3 cm x 3 cm excised to grossly normal tissue using elliptical incision twice as wide as it is tall with a 15 blade scalpel. Hypercare is also used for hemostasis. The specimen was oriented and sent to pathology. Undermining was done to reapproximate. Subdermal sutures of 3-0 Vicryl were used. Steri-Strips were placed and 4 x 4 and tape. Alert Aldo Alert Billing: Yes (3 cm lesion on the trunk unable to say if this is malignant or not currentl) Procedure Time Out Time Out Informed consent given: Yes Consent signed: Yes Time out checklist: patient, procedure, site marked/identified, positioning of patient, supplies available, allergies confirmed and team agrees on procedure Time out staff in room: Yes Time out verified: Yes Time out date: 07/16/23 Time out time: 15:00 Assessment and Plan Assessment and Plan (1) Mass of skin of shoulder: Status: Acute (2) Skin lesion: Status: Acute Comment: Right lower quadrant suspicious for malignancy Plan Discussed with patient that her shoulder subcutaneous mass is consistent with li wade located at clinically and with bedside ultrasound. Patient's right lower quadrant skin lesion is concerning for malignancy especially since has gotten larger in size in the last 3 months. Will plan for excision of this in the office. Discussed risks including but not limited to bleeding, infection, need for further excision for margins patient was agreeable plan. Did proceed with excision in the office. Patient tolerated excision well. Patient will follow-up in 1 week and will call patient with pathology report, patient will make an appointment another time for excision of lipoma of the left shoulder if she would like. Clarissa Jose M.D. Pager: [phone] [facility] [address] [place] [address], [address] [place] [address] Office: [phone] Coding Level of Care Code Attention [employer] Diagnoses Mass of skin of shoulder R22.30 Skin lesion L98.9 Comment Need to await pathology suspicious for malignancy 3 cm x 3 cm 07/17/23 1030 <Electronically signed by Clarissa Jose MD> Date Clarissa Jose MD
[2023-08-01] MEDS: Lactated Ringers 1,000 ML 15 ML IV (07:18)
[2023-08-01] MEDS: Cefazolin 2 GM in 0.9% Normal Saline (100mL Bag) 100 ML IV (08:39)
--- NOTE | 2023-08-01 09:38 | OP.PCM_ITS ---
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 Right lower quadrant reexcision for margin, #2 left shoulder lipoma Estimated Blood Loss (mL): < 10 cc Description of Procedure: Patient is brought in operating placed spinal operating table. Timeout was completed verifying correct patient, procedure, site, positioning and special equipment prior to being procedure. General anesthesia was induced. Patient right lower quadrant was prepped and draped in usual sterile fashion with chlorhexidine. Incision was made with a 15 blade scalpel for additional margins. This was deepened with electrocautery. Hemostasis was achieved with e lectrocautery. Patient specimen was oriented long stitch lateral short stitch superior, single short stitch previous lesion location. Wound was irrigated with saline. Incision closed with subdermal 3-0 Vicryl sutures and skin was closed with running 4-0 Monocryl. Steri-Strips and OpSite were placed. Bump was placed under the left shoulder to allow access to the lipoma. Areas prepped draped usual sterile fashion. Incision was made overlying the lipoma with new 15 blade scalpel. This was deepened with electrocautery. Lipoma was dissected out with electrocautery. Hemostasis was achieved with electrocautery. Lipoma measured 6 cm x 4 cm x 1.5 cm. Incision was irrigated with saline. Incision closed with subdermal 3-0 Vicryl interrupted sutures and running 4-0 Monocryl for the skin. Steri-Strips and OpSite were placed. Local anesthesia of 0.5% Marcaine used at the incisions. Patient tolerated procedure well and taken to the postanesthesia care unit in stable condition. Complications none
--- NOTE | 2023-08-01 09:44 | DCINST_ITS ---
Discharge Instructions Diet Discharge Diet: No restrictions Activity Discharge Activity: May Not Drive (If taking narcotics) and May Shower (After 24 hours) Lifting Restrictions: No lifting greater than 10 pounds with the left arm x 1 week Dressing / Incision Call your doctor if your incision/area has: Continuous Slow Oozing, Sudden Increased Bleeding, Increased Pain/ Swelling, Increased Redness, Foul Smelling Discharge and Swelling at the incision site Call your doctor if you observe: Fever of 101 or Higher Change Dressing in: 2 days Remove Dressing in: 2 days (OpSite keep Steris in place for 7 to 10 days if they do not follow-up okay to remove in 10 days) Cleanse incision/area with: Soap & Water (Soap and water can run over the incisions after 1 day) Follow Up Care Please Follow Up With: Clarissa Jose MD When: Call the office for a follow-up appointment in 2 weeks. Any questions after 4:30 PM/weekends/holidays call [phone]. Test Results: Test results from this visit will be discussed in further detail at your follow- up appointment, if applicable. Discharge Plan Admission Attending Provider: Clarissa Jose Primary Care Provider: Charla Wadsworth Instructions Print Language: Andorran Discharge Orders/Prescriptions Prescriptions: New oxycodone-acetaminophen 5-325 mg tablet 1 tab PO Q6H PRN (Reason: pain) 3 Days Qty: 5 0RF Continued duloxetine 60 mg capsule,delayed release(DR/EC) 120 mg PO DAILY Rx Instructions: rx by pallative care tizanidine 4 mg tablet 4 mg PO TID PRN PRN (Reason: muscle spasticity) trazodone 150 mg tablet 200 mg PO QHS Patient Comments: TAKE 1 TABLET BY MOUTH EVERYDAY AT BEDTIME gabapentin 300 mg capsule 300 mg PO TID Patient Comments: TAKE 1 CAPSULE BY MOUTH THREE TIMES A DAY buspirone 7.5 mg tablet 10 mg PO TID Patient Comments: TAKE 1 TABLET BY MOUTH THREE TIMES A DAY potassium chloride 20 mEq tablet,ER particles/crystals 20 meq PO DAILY oxycodone-acetaminophen 5-325 mg tablet 1 tab PO .QH8 PRN PRN (Reason: pain) Patient Comments: TAKE 1 TABLET BY MOUTH up to TWICE DAILY clonazepam 0.5 mg tablet 0.5 mg PO TID magnesium oxide 400 mg (241.3 mg magnesium) tablet 400 mg PO DAILY rosuvastatin 10 mg tablet 20 mg PO DAILY Rx Instructions: TAKE ONE TABLET BY MOUTH DAILY amlodipine 5 mg tablet 5 mg PO DAILY Rx Instructions: TAKE ONE TABLET BY MOUTH DAILY omeprazole 40 mg capsule,delayed release(DR/EC) 40 mg PO DAILY Rx Instructions: TAKE ONE CAPSULE BY MOUTH DAILY FOR STOMACH ondansetron 8 mg tablet,disintegrating 8 mg PO Q8H PRN PRN (Reason: nausea and vomiting) Rx Instructions: TAKE ONE TABLET BY MOUTH EVERY 8 HOURS NEEDED FOR NAUSEA AND VOMITING levothyroxine 25 mcg tablet 25 mcg PO DAILY Rx Instructions: TAKE ONE TABLET BY MOUTH DAILY FOR THYROID hydrochlorothiazide 12.5 mg tablet 12.5 mg PO DAILY Rx Instructions: TAKE 1 TABLET BY MOUTH EVERY DAY diclofenac sodium 1 % gel 4 g topical TID PRN MDD 32g/day total PRN (Reason: joint pain) Rx Instructions: apply to single knee, ankle, foot; for foot includes sole/toes/top of foot isosorbide mononitrate 60 mg tablet extended release 24 hr 60 mg PO QAM Qty: 90 3RF (DME) Ultra-Light Rollator Misc See Rx Instructions .Route Qty: 1 0RF Rx Instructions: As directed Prolia 60 mg/mL syringe 60 mg subcut [id number] Qty: 1 2RF lisinopril 20 mg tablet 20 mg PO DAILY Qty: 90 1RF metoprolol tartrate 100 mg tablet 100 mg PO BID Qty: 180 1RF Rx Instructions: TAKE 1 TABLET BY MOUTH TWICE A DAY FOR BLOOD PRESSURE/HEART fenofibrate 54 mg tablet 54 mg PO DAILY Qty: 90 1RF Referrals / Follow Up: Charla Wadsworth MD [Primary Care Provider] - Disposition Disposition (needs filled in before D/C Order can be placed): Home, Self Care
[2023-08-01] MEDS: Bupivacaine Mpf 0.5% 30 ML VIAL (09:54)
[2023-08-01] MEDS: Acetaminophen 325 MG Tablet 650 MG PO (11:18)
[2023-08-01] MEDS: oxyCODONE 5 MG Tablet 10 MG PO (11:18)
== END 2023-08-01 11:50 | disposition home or self-care (01) ==
LOC: SDC 06:37 → AC 06:37
PROVIDERS: PCP Internal Medicine; Referring Provider Surgery; Visit Provider Surgery
PROC: (CPT 38500; principal; 2023-08-01 08:30)
DX: D17.22 Benign lipomatous neoplasm of skin and subcutaneous tissue of left arm (principal); J44.9 Chronic obstructive pulmonary disease, unspecified; I25.10 Atherosclerotic heart disease of native coronary artery without angina pectoris; E78.49 Other hyperlipidemia; I10 Essential (primary) hypertension; F17.210 Nicotine dependence, cigarettes, uncomplicated; R22.32 Localized swelling, mass and lump, left upper limb; K21.9 Gastro-esophageal reflux disease without esophagitis; E03.9 Hypothyroidism, unspecified; Z95.0 Presence of cardiac pacemaker; L02.211 Cutaneous abscess of abdominal wall; Z79.899 Other long term (current) drug therapy; Z79.890 Hormone replacement therapy
CPT/HCPCS: 11606; 11403; 12032; 00400; 88304; 88305; J7120; J2405

== ENCOUNTER 2023-08-27 16:42 | Emergency (ER) | payer MEDICARE, MEDICAID, SELFPAY ==
[2023-08-27 16:44] VITALS: BP 128/70; PULSE 56; RESP 14; TEMP 36.4; O2SAT 96; BMI 38.2
--- NOTE | 2023-08-27 16:50 | RAD_ITS ---
EXAM: XR RIGHT ANKLE COMPLETE, 3 OR MORE VIEWS CLINICAL INDICATION: pain, remote injury TECHNIQUE: Frontal, lateral and oblique views of the right ankle. COMPARISON: 07/30/2023 FINDINGS: BONES/JOINTS: Unremarkable. No acute fracture. No subluxation. Normal alignment. Preservation of the joint space. No sclerotic or destructive changes observed. SOFT TISSUES: There is soft tissue swelling over the lateral malleolus. No radiopaque foreign body. RAD/Ankle min 3 Views IMPRESSION: Soft tissue swelling with no acute osseous abnormalities. There has been no significant change from the reference exam. Electronically Signed: Morgan Duval MD at 17:10 EDT ,
--- NOTE | 2023-08-27 16:50 | RAD_ITS ---
EXAM: XR RIGHT FOOT COMPLETE, 3 OR MORE VIEWS CLINICAL INDICATION: pain, remote injury TECHNIQUE: Frontal, lateral and oblique views of the right foot. COMPARISON: No relevant prior studies available. FINDINGS: BONES/JOINTS: Unremarkable. No acute fracture. No subluxation. Normal alignment. Preservation of the joint space. No sclerotic or destructive changes observed. SOFT TISSUES: Unremarkable. No soft tissue swelling or gas. No radiopaque foreign body. RAD/Foot min 3 Views IMPRESSION: Negative right foot x-rays. Electronically Signed: Morgan Duval MD at 17:12 EDT ,
--- NOTE | 2023-08-27 17:27 | EDS_ITS ---
HPI History of Present Illness Chief Complaint: Lower Extremity Injury Informant: patient and EMS Narrative Narrative: 58-year-old female is in assisted living because of chronic back and lower extremity arthritis issues, she states 3 weeks ago she was walking outside and twisted her right ankle in a pothole, which also resulted in minor injuries to the knee and the hip. The major injury was to the lateral aspect of the right ankle. She came to the ER and had x-rays but waited in the waiting room for so long that she left without being seen and saw her doctor the next day who looked at the x-rays and told her they were negative for anything acute. Since then she has been using a soft brace, she is both in a wheelchair and uses a rollator and states that the pain in her right ankle has been getting worse and worse. She states the pain in her knee and hip are better and she denies any new pain or injuries. When asked if she needs a higher level of care than assisted living, she states absolutely not, she can manage on her own just wanted to make sure that she troubleshooted the problem. [facility] Medical History Knee sprain Post-menopausal Cancer Arthritis Walker as ambulation aid Uses wheelchair High cholesterol Back pain Injury of back Migraine headache Dietary restriction History of IBS Smoker CPAP (continuous positive airway pressure) dependence COPD (chronic obstructive pulmonary disease) Emphysema, unspecified Leg cramps History of pain when walking History of edema History of echocardiogram History of stress test Cardiology follow-up encounter History of CHF (congestive heart failure) Chest pain Osteopenia (~10/2022) Lumbar radiculopathy Debility Leukocytosis Health care maintenance Pain of left thumb Polypharmacy Encephalopathy CHI (closed head injury) Bacteria in urine Health care maintenance Muscle spasm Tobacco use disorder, continuous Encounter for screening for malignant neoplasm of lung in current smoker with 30 pack year history or greater Osteoarthritis Greater trochanteric bursitis of left hip Infected dental carries Atherosclerotic heart disease of [place] coronary artery without angina pectoris Monomorphic ventricular tachycardia Hyperlipidemia Intermittent palpitations Diarrhea ELOY (obstructive sleep apnea) COPD (chronic obstructive pulmonary disease) Polycythemia Primary malignant neuroendocrine tumor of stomach Sacral contusion Low back strain Anxiety and depression Hypothyroidism GERD (gastroesophageal reflux disease) PTSD (post-traumatic stress disorder) Vitamin D deficiency Neuropathy Anemia Essential (primary) hypertension Neuroendocrine neoplasm of stomach Sick sinus syndrome Sinus pause Chronic lower back pain Chronic pain syndrome Tobacco dependence syndrome Familial combined hyperlipidemia Obesity Home Medications ?Medication ?Instructions ?Recorded ?Last Taken ?Type duloxetine 60 mg capsule,delayed 120 mg PO DAILY 05/16/22 08/01/23 History release gabapentin 300 mg capsule 300 mg PO TID 05/16/22 08/01/23 History trazodone 150 mg tablet 200 mg PO QHS 05/16/22 Unknown History isosorbide mononitrate 60 mg 60 mg PO QAM #90 tabs 06/13/22 08/01/23 Rx tablet,extended release 24 hr walker (Ultra-Light Rollator misc) #1 ea 10/17/22 Unknown Rx buspirone 7.5 mg tablet 10 mg PO TID 01/30/23 08/01/23 History potassium chloride 20 mEq 20 meq PO DAILY 01/30/23 Unknown History tablet,extended release(part/cryst) denosumab 60 mg/mL subcutaneous 60 mg subcut [id number] #1 mL 02/15/23 Unknown Rx syringe (Prolia) lisinopril 20 mg tablet 20 mg PO DAILY #90 tabs 02/20/23 07/31/23 Rx oxycodone-acetaminophen 5 mg-325 1 tab PO .QH8 PRN PRN pain 03/26/23 08/01/23 Hi story mg tablet metoprolol tartrate 100 mg tablet 100 mg PO BID blood pressure, 04/26/23 08/01/23 Rx heart #180 tabs clonazepam 0.5 mg tablet 0.5 mg PO TID 07/16/23 08/01/23 History amlodipine 5 mg tablet 5 mg PO DAILY 07/25/23 08/01/23 History diclofenac sodium 1 % topical gel 4 g topical TID PRN PRN joint pain 07/25/23 Unknown History hydrochlorothiazide 12.5 mg tablet 12.5 mg PO DAILY 07/25/23 Unknown History levothyroxine 25 mcg tablet 25 mcg PO DAILY 07/25/23 Unknown History magnesium oxide 400 mg (241.3 mg 400 mg PO DAILY 07/25/23 Unknown History magnesium) tablet omeprazole 40 mg capsule,delayed 40 mg PO DAILY 07/25/23 08/01/23 History release ondansetron 8 mg disintegrating 8 mg PO Q8H PRN PRN nausea and 07/25/23 Unknown History tablet vomiting rosuvastatin 10 mg tablet 20 mg PO DAILY 07/25/23 Unknown History fenofibrate 54 mg tablet 54 mg PO DAILY #90 tabs 07/31/23 Unknown Rx oxycodone-acetaminophen 5 mg-325 1 tab PO Q6H PRN pain 3 days #5 08/01/23 Unknown Rx mg tablet tabs sumatriptan succinate 50 mg tablet See Rx Instructions PO .COMPLEX 08/09/23 Unknown Rx (Imitrex) #10 tabs cyclobenzaprine 10 mg tablet 10 mg PO BID 08/26/23 Unknown History Allergy/AdvReac Type Severity Reaction Status Date / Time latex Allergy Intermediate skin Verified 08/27/23 16:43 irritation aspirin AdvReac Severe Nausea/Vom/ Verified 08/27/23 16:43 Diarrhea erythromycin base AdvReac Severe Vomiting,di Verified 08/27/23 16:43 (Erythromycin Base) arrhea NSAIDS (Non-Steroidal AdvReac Severe Vomiting,di Verified 08/27/23 16:43 Anti-Inflamma arrhea Family History Daughter Multiple sclerosis Father CAD (coronary artery disease) Heart disease Multiple sclerosis Grandfather Heart disease Uncle Heart disease Aunt No problems noted. Sister Colon cancer Mother Hypertension Surgical History History of lumbar fusion History of esophagogastroduodenoscopy (EGD) Status post insertion of spinal cord stimulator History of left heart catheterization (08/17/21) History of colonoscopy Presence of permanent cardiac pacemaker (2013) History of resection of stomach Hx of cholecystectomy History of elbow surgery History of hysterectomy History of appendectomy History of laparotomy history excision neuroendocrine tumor Social History Smoking Status: Current some day smoker tobacco type: cigarettes Tobacco: How many years used: 30 second hand exposure: Yes quit status: has quit before alcohol intake: never substance use type: does not use what type of physical activity do you participate in: none ivania/adventism: None seatbelt use: always do you feel safe at home: Yes ROS ROS ED Constitutional Constitutional ED: Denies chills or fever(s) Musculoskeletal Musculoskeletal: Reports extremity pain; Denies neck pain Integumentary Denies Abrasions, rash or wounds Neurologic Neurologic: Denies paresthesias or weakness EXAM Physical Exam Const Vital Signs: 08/27/23 16:44 Temperature 97.5 F L Temperature Source Temporal Pulse Rate 56 L Respiratory Rate 14 Blood Pressure 128/70 H Blood Pressure Mean 89 Pulse Ox 96 Oxygen Delivery Method Room Air Positive well nourished and well developed General Appearance ED: well developed and NAD Neck full ROM and supple Back/Spine normal ROM and normal to inspection Extremity Extremity Narrative: No deformities right lower extremity, there is some swelling about the lateral malleolus, but I do not appreciate swelling anywhere else. The entire ankle and midfoot are diffusely tender including the base of the fifth metatarsal but there is no appreciable swelling here or at the midfoot. She is able to move the ankle but limited due to pain. When applying lateral stress on the foot, there is no signs of any laxity or lateral talar shift about the ankle joint. There is no tenderness in the proximal fibula or the knee which she can move without any difficulty and she can also move the hip without any apparent difficulty. She is neurovascularly intact distally. There are no open wounds. There is well-healed scar at the right lateral malleolus of the ankle. Neuro oriented x3, no focal motor deficits and no sensory deficits noted Sensorium / Orientation: alert Psych mental status grossly normal and thought process normal Skin no wounds Rashes: no rashes MDM MDM MDM Narrative Medical decision making narrative: Obtain three-view x-ray series of the right ankle and 3 view x-ray series of the right foot both show no acute fractures on my interpretation, this is confirmed by radiology. She does have some chronic appearing abnormalities about the lateral malleolus, she did confirm that she had surgery on this due to a fracture remotely which is probably related. These are unchanged compared with the initial x-rays 3 weeks ago, I reviewed those films as well, as well as the radiologist's interpretation. I offered the patient an Aircast which will give her more stability in the ankle, she states that she feels that that is what she needs in order to get around better with her rollator. Follow-up advised. Will refer to orthopedics since she feels worse after 3 weeks, as I discussed with her her joint is not unstable but I am not able to rule out a grade 3 sprain. Radiography Diagnostic Testing: Clinical Impression(s) from Imaging Studies Ankle X-Ray 08/27/23 16:50 IMPRESSION: Soft tissue swelling with no acute osseous abnormalities. There has been no significant change from the reference exam. Electronically Signed: Morgan Duval MD at 17:10 EDT , Foot X-Ray 08/27/23 16:50 IMPRESSION: Negative right foot x-rays. Electronically Signed: Morgan Duval MD at 17:12 EDT , Discharge Plan Triage Chief Complaint: Lower Extremity Injury ED Provider: Arthur Meade Dx/Rx/DC Orders Clinical Impression: Sprain of ankle, right Instructions: ED Sprain Ankle W X Ray Prescriptions: No Action duloxetine 60 mg capsule,delayed release(DR/EC) 120 mg PO DAILY Rx Instructions: rx by pallative care trazodone 150 mg tablet 200 mg PO QHS Patient Comments: TAKE 1 TABLET BY MOUTH EVERYDAY AT BEDTIME gabapentin 300 mg capsule 300 mg PO TID Patient Comments: TAKE 1 CAPSULE BY MOUTH THREE TIMES A DAY buspirone 7.5 mg tablet 10 mg PO TID Patient Comments: TAKE 1 TABLET BY MOUTH THREE TIMES A DAY potassium chloride 20 mEq tablet,ER particles/crystals 20 meq PO DAILY oxycodone-acetaminophen 5-325 mg tablet 1 tab PO .QH8 PRN PRN (Reason: pain) Patient Comments: TAKE 1 TABLET BY MOUTH up to TWICE DAILY clonazepam 0.5 mg tablet 0.5 mg PO TID cyclobenzaprine 10 mg tablet 10 mg PO BID magnesium oxide 400 mg (241.3 mg magnesium) tablet 400 mg PO DAILY rosuvastatin 10 mg tablet 20 mg PO DAILY Rx Instructions: TAKE ONE TABLET BY MOUTH DAILY amlodipine 5 mg tablet 5 mg PO DAILY Rx Instructions: TAKE ONE TABLET BY MOUTH DAILY omeprazole 40 mg capsule,delayed release(DR/EC) 40 mg PO DAILY Rx Instructions: TAKE ONE CAPSULE BY MOUTH DAILY FOR STOMACH ondansetron 8 mg tablet,disintegrating 8 mg PO Q8H PRN PRN (Reason: nausea and vomiting) Rx Instructions: TAKE ONE TABLET BY MOUTH EVERY 8 HOURS NEEDED FOR NAUSEA AND VOMITING levothyroxine 25 mcg tablet 25 mcg PO DAILY Rx Instructions: TAKE ONE TABLET BY MOUTH DAILY FOR THYROID hydrochlorothiazide 12.5 mg tablet 12.5 mg PO DAILY Rx Instructions: TAKE 1 TABLET BY MOUTH EVERY DAY diclofenac sodium 1 % gel 4 g topical TID PRN MDD 32g/day total PRN (Reason: joint pain) Rx Instructions: apply to single knee, ankle, foot; for foot includes sole/toes/top of foot oxycodone-acetaminophen 5-325 mg tablet 1 tab PO Q6H PRN (Reason: pain) 3 Days Qty: 5 0RF isosorbide mononitrate 60 mg tablet extended release 24 hr 60 mg PO QAM Qty: 90 3RF (DME) Ultra-Light Rollator Misc See Rx Instructions .Route Qty: 1 0RF Rx Instructions: As directed Prolia 60 mg/mL syringe 60 mg subcut [id number] Qty: 1 2RF lisinopril 20 mg tablet 20 mg PO DAILY Qty: 90 1RF metoprolol tartrate 100 mg tablet 100 mg PO BID Qty: 180 1RF Rx Instructions: TAKE 1 TABLET BY MOUTH TWICE A DAY FOR BLOOD PRESSURE/HEART fenofibrate 54 mg tablet 54 mg PO DAILY Qty: 90 1RF sumatriptan succinate [Imitrex] 50 mg tablet See Rx Instructions PO .COMPLEX Qty: 10 3RF Rx Instructions: take 1 tab at onset of headache; if no relief may repeat 1 tab after at least 2 hrs; max = 4 tabs/24 hr PO Primary Care Provider: Charla Wadsworth Referrals: Charla Wadsworth MD [Primary Care Provider] - Navneet Cantu DO [Med Staff - Active Staff] - As soon as possible (call for appt) Print Language: [place] Citizen Disposition Disposition: Home, Self Care
[2023-08-27] MEDS: traMADol 50 MG Tablet PO (17:49)
[2023-08-27] MEDS: Ondansetron ODT 4 MG Tablet 8 MG PO (17:49)
== END 2023-08-27 18:12 | disposition home or self-care (01) ==
PROVIDERS: Emergency Provider Emergency Medicine; PCP Internal Medicine; Visit Provider Emergency Medicine
DX: S93.401A Sprain of unspecified ligament of right ankle, initial encounter (principal); J43.9 Emphysema, unspecified; X50.1XXA Overexertion from prolonged static or awkward postures, initial encounter; Y93.01 Activity, walking, marching and hiking; Y92.099 Unspecified place in other non-institutional residence as the place of occurrence of the external cause; E78.00 Pure hypercholesterolemia, unspecified; I10 Essential (primary) hypertension; F17.210 Nicotine dependence, cigarettes, uncomplicated; Z79.899 Other long term (current) drug therapy
CPT/HCPCS: 73610; 73630; 99284

== ENCOUNTER → 2023-10-10 | Outpatient (CLI) | payer MEDICARE, MEDICAID, SELFPAY ==
--- NOTE | 2023-10-10 15:36 | RAD_ITS ---
EXAM: XR THORACIC SPINE, 3 VIEWS CLINICAL INDICATION: CHECK SCS LEAD PLACEMENT TECHNIQUE: Frontal, lateral and swimmer''s views of the thoracic spine. COMPARISON: No relevant prior studies available. FINDINGS: VERTEBRAE: There are small osteophytes present. Preserved vertebral body height. No fracture. No spondylolisthesis. Preservation of the normal thoracic kyphosis. No significant facet arthropathy. DISC SPACES: There are degenerative changes with disc space narrowing. TUBES, LINES AND DEVICES: There are stimulator leads seen in the mid thoracic canal. RAD/Thoracic Spine 3 Views IMPRESSION: 1. Degenerative changes with disc space narrowing and osteophyte formation. There are no acute osseous abnormalities. 2. Stimulator leads in the mid thoracic canal. Electronically Signed: Morgan Duval MD at 0:02 EDT ,
== END | disposition home or self-care (01) ==
LOC: MTRAD 15:35
PROVIDERS: PCP Internal Medicine; Referring Provider Clinical Nurse Specialist Adult Health; Visit Provider Clinical Nurse Specialist Adult Health
DX: Z45.42 Encounter for adjustment and management of neurostimulator (principal); Z96.82 Presence of neurostimulator
CPT/HCPCS: 72072

== ENCOUNTER → 2023-11-04 | Outpatient (CLI) | payer MEDICARE, MEDICAID, SELFPAY ==
[2023-11-04 12:16] LABS: Absolute Lymphocyte Count 4.24 X10^3/uL (0.83-4.51); Absolute Neutrophil Count 7.6 X10^3/uL (2.0-7.7); Basophil# 0.06 X10^3/uL; Basophil% 0.5 % (0-1); Eosinophil# 0.25 X10^3/uL; Eosinophils% 1.9 % (0-5); Lymphocyte # 4.24 X10^3/ul (0.83-4.51); Lymphocyte % 32.3 % (19-41); Mean Corp Hgb Conc 32.6 g/dL (32-36); Mean Corpuscular Hgb 29.2 pg (27.0-32.0); Mean Corpuscular Volume 89.6 fL (81-99); Mean Platelet Vol. 9.4 fl (6.2-12.0); Monocyte# 0.96 X10^3/uL; Monocyte% 7.3 % (0-10); NRBC Flagged by Analyzer 0 % (0-5); Neutrophil # 7.55 X10^3/uL (2.7-7.7); Neutrophil % 57.5 % (47-70); Platelet Count 239 K/mm3 (150-450); RBC Distribution Width CV 13.9 % (11.6-14.6); RBC Distribution Width SD 45.4 fl (35.1-43.9); White Blood Count 13.1 K/mm3 (4.4-11.0)
[2023-11-04 16:25] LABS: AST(SGOT) 18 U/L (15-37); Alanine Aminotransfer ALT/SGPT 26 U/L (13-56); Albumin, Serum 3.8 g/dL (3.2-5.0); Alkaline Phosphatase 75 U/L (45-117); Anion Gap 8 (5-15); BUN 32 mg/dL (7-18); BUN/Creat Ratio 19.5 RATIO (10-20); Bilirubin, Direct 0.05 mg/dL (0.00-0.30); Calcium,Total 9.4 mg/dL (8.5-10.1); Chloride 109 mmol/L (98-107); Cholesterol 175 mg/dL (200); Creatinine, Serum 1.64 mg/dL (0.55-1.02); EST Glomerular Filtration Rate 34 mL/min (>60); Est Glom Filt Rate - Afr Amer 41 mL/min (>60); Glucose 109 mg/dL (74-106); High Density Lipoprotein 39 mg/dL; Potassium 5.5 mmol/L (3.5-5.1); Protein, Total 7.8 g/dL (6.4-8.2); Sodium Level 138 mmol/L (136-145); Triglycerides 185 mg/dL; Very Low Density Lipoprotein 37 mg/dL (5-40)
== END | disposition home or self-care (01) ==
LOC: BIMLAB 11:40
PROVIDERS: PCP Internal Medicine; Referring Provider Internal Medicine; Visit Provider Internal Medicine
DX: I10 Essential (primary) hypertension (principal); E78.5 Hyperlipidemia, unspecified
CPT/HCPCS: 36415; 80053; 80061; 82248; 85025

== ENCOUNTER 2023-11-06 11:00 | Outpatient (RCR) | payer MEDICARE, MEDICAID, SELFPAY ==
--- NOTE | 2023-09-19 12:30 | HP.PTEVAL_ITS ---
Patient's Visit Information Visit Information Visit Information: RAMSES BRADSHAW is a 58 year old F referred to Physical Therapy by OIL WELL SHOOTER. Phyllis Plummer with a diagnosis of LEG WEAKNESS ,FALLS ,LUMBAR FACET ARTHROPATHY. Date of Evaluation: 09/19/23 Physical Therapist: Donovan Jordan, PT, Cert MDT, OCS Visit Plan Frequency: 2x /Week Duration: 6 Weeks Plan: USES POWER W/C FOR MOBILITY AMBULATES WITH ROLLATOR SHORT DISTANCES LATEX ALLERGY PT INVENTIONS DLS,POSTURAL EX'S ,BLE -QUADS/HAMS/HIP /BUE STRENGTHENING ,GAIT TRAINING ,AND AEROBIC EX'S , Subjective Subjective: This 58 y/o female presents to physical therapy with leg weakness,falls and lumbar pain. Patient has had back pain many years with pain getting worse. Patient has h/o lumbar fusion 7 years ago. Patient uses power w/c in community and uses rollator in apartment.Patient can ambulate ~ 15 ft. Patient has h/o falls and last fall about 1 month ago. Patient has fallen > 10 times past 6 months. Patient uses fww and legs give way and patient falls. Patient lives in assisted living [facility].Patient get help meals are provided . Patient has been dressing self and sponge bathing. Patient has symmetrical lumbar pain SI/LS . Patient sees DR Rowe with epidural injections and pain stimulator in Apr.No recent imaging. Patient has paresthesia/tingling in legs . Coughing/sneezing-. Patient bowel/bladder - .Patient has difficulty sleeping.Medication:flexoral ,gabapentin,percocet. Patient pain in back worse with walking and standing with rollator. Pain described burning/sharp. Patient comorbities influences along with weakness in legs impairs gait ,causing falls along with severity of pain. Patient goals to decrease pain and no falls. PRECAUTION: LATEX ALLERGY * Patient declines Aquatic Therapy * SOCIAL: single Pain Bilateral Back: Pain Intensity (Out of 10): 7 Pain Intensity Range: 10 Objective Objective: POSTURE: posterior pelvic tilt MOBILITY: Power w/c for mobility ( uses rollator at assist living) PALAPTION: tender LS erector spinal's NEURO: c/o paresthesia/tingling ,L3-4,L4-5,L5-S1, 1/3 AROM: BUE WFL ,HIP/KNEE WFL LUMBAR ROM: mod /severe loss flexion ,extension severe loss FLEXABLITY: hamstrings mod loss MMT: ( peak force) quads right 13.8 ,left 10.7 ,hamstrings left 7.9 .right 9.1 ,hip flexion 6.4, right ,left 8.2 BUE grossly 4-/5 ,shoulders 3+/5 TRANSFERS: sit-stand with CGA to walker GAIT: ambulates with fww few steps unsteady decrease step length gait belt( uses rollator assisted living short distances) Special Tests L/S Slump test left side: Negative L/S Slump test right side: Negative L/S Left Straight Leg Raise: Negative L/S Right Straight Leg Raise: Negative Balance/Special Test Scores Oswestry Low Back Score: 45 Goals Goal 1:: Patient to be provided with HEP for strengthening Goal Time Frame: 4-6 Weeks Goal 2:: Patient to demonstrate 40% improvement with less pain and improved fu nction Goal Time Frame: 4-6 Weeks Goal 3:: Patient to decrease pain with function < 3/10 with standing and walking Goal Time Frame: 4-6 Weeks Goal 4:: Patient to improve back oswestry score by 3 points to improve QOL Goal Time Frame: 4-6 Weeks Goal 5:: Patient to improve peak force quads/hams/hip by 5-10 # to improve function and gait Goal Time Frame: 4-6 Weeks Goal 6:: Patient to ambulate safely with no falls in room of assisted living Goal Time Frame: 4-6 Weeks Rehabilitation Potential Physical Therapy Diagnosis: This patient has multiple comorbities that influence condition with h/o falls ,weakness ,decrease safe gait ,transfers,uses power w/c in community and resides at assisted living thus benefit from skilled PT Rehabilitation Potential: Fair Anticipated Interventions Patient/Client Instruction: Educate patient on: Condition For the Purpose of:: To increase ROM, To improve muscle performance and motor function, To improve ability to perform ADL's, To increase tolerance to activity/condition/position, To improve ability of physical actions for home/community/work/leisure, To improve gait and locomotor functions, To increase flexibility/ROM, To improve endurance, To improve balance, To improve safety with gait, To reduce risk of recurrence and To improve tolerance to ADL's Therapeutic Exercise to Include: Strength training, Endurance training, Balance training, Postural training, Flexibilty training, Gait and locomotor training and Dynamic Lumbar Stabilization Comment: BLE QUADS/HAMS/HIP ,BUE For the Purpose of:: To decrease pain, To increase ROM, To improve muscle performance and motor function, To increase tolerance to activity/condition/position, To improve ability of physical actions for home/community/work/leisure, To improve gait and locomotor functions, To improve health of tissue, To decrease soft tissue restriction, To increase flexibility/ROM, To improve endurance, To improve balance and To improve tolerance to ADL's TENS: Yes IF ES: Yes Cryotherapy (ice pack, ice massage): Yes Thermo therapy (hot pack): Yes Ultrasound (thermal/non thermal): Yes For the Purpose of:: To decrease pain, To improve nutrient delivery to tissue and To increase oxygenation perfusion Text: Thank you for the opportunity to evaluate your patient. For Medicare and Medicare HMO plans, please review the plan of care and approve it. It will need to be FAXED BACK to us at [phone] for Medicare purposes. For Medicare only, by signing this I certify the plan of care. Please let me know if there are questions or concerns regarding this plan of care. Physician Signature: Date:
--- NOTE | 2023-11-06 11:24 | HP.PTDCSUM_ITS ---
Discharge Summary D/C summary: It has been my pleasure to treat RAMSES BRADSHAW referred by SALES REPRESENTATIVE. Phyllis Plummer, with the diagnosis of LEG WEAKNESS ,FALLS ,LUMBAR FACET ARTHROPATHY for a total of 7 visit(s). Discharge Date: 11/06/23 Please see the following information for a summary of their discharge status. Subjective Subjective: Seen DR Alexander try injection in sacrum Pain in back and legs is worse Plan to reprogram pain stimulator No recent falls Unable to stand for extended periods ,patient colón been using walker short distance Pain Bilateral Back: Pain Intensity (Out of 10): 8 Left Lower Extremity: Pain Intensity (Out of 10): 8 Overall Improvement % Improvement: 10 Objective Objective/Function: POSTURE: posterior pelvic tilt MOBILITY: Power w/c for mobility ( uses rollator at assist living) PALAPTION: tender LS erector spinal's NEURO: c/o paresthesia/tingling ,L3-4,L4-5,L5-S1, 1/3 AROM: BUE WFL ,HIP/KNEE WFL LUMBAR ROM: mod /severe loss flexion ,extension severe loss FLEXABLITY: hamstrings mod loss MMT: ( peak force) quads right 26.8 ,left 22.7 ,hamstrings left 17.9 .right 19.1 ,hip flexion 17.4, right ,left 18.2 BUE grossly 4-/5 ,shoulders 3+/5 TRANSFERS: sit-stand with CGA to walker GAIT: ambulates with fww few steps unsteady decrease step length gait belt( uses rollator assisted living short distances Goals Goal 1:: Patient to be provided with HEP for strengthening Goal Progress: Goal Met Goal 2:: Patient to demonstrate 40% improvement with less pain and improved function Goal Progress: Progressing Goal 3:: Patient to decrease pain with function < 3/10 with standing and walking Goal Progress: Progressing Goal 4:: Patient to improve back oswestry score by 3 points to improve QOL Goal Progress: Not Progressing Goal 5:: Patient to improve peak force quads/hams/hip by 5-10 # to improve function and gait Goal Progress: Goal Met Goal 6:: Patient to ambulate safely with no falls in room of assisted living Goal Progress: Progressing Plan Plan: D/C D/C Information Discharge Comments: Will try PT after injection and pain stimulator adjusted will need order. d/c sentence: If there are questions or concerns regarding this patient's physical therapy, please feel free to call me at [phone]. Thank you for the referral of this patient. Sincerely, Donovan Jordan PT, Cert MDT, OCS Balance/Gait/Functional tests Balance/Special Test Scores Oswestry Low Back Score: 45 Improvement % Improvement: 10
== END 2023-11-06 19:00 | disposition home or self-care (01) ==
LOC: PT 11:00
PROVIDERS: PCP Internal Medicine; Referring Provider Clinical Nurse Specialist Adult Health; Visit Provider Clinical Nurse Specialist Adult Health
DX: R29.898 Other symptoms and signs involving the musculoskeletal system (principal); M47.816 Spondylosis without myelopathy or radiculopathy, lumbar region; Z91.81 History of falling
CPT/HCPCS: 97110; 97163; 97530

== ENCOUNTER → 2023-11-12 | Outpatient (CLI) | payer MEDICARE, MEDICAID, SELFPAY ==
--- NOTE | 2023-11-12 12:49 | CT_ITS ---
STUDY: LOW DOSE CT LUNG CANCER SCREENING REASON FOR EXAM: Female, 58 years old. Lung cancer screening -- and gt; 30 pk yr hx;former smoker;asymptomatic RADIATION DOSAGE (If Supplied By Facility): CTDIvol = ( 3.02 ) mGy, DLP = ( 104.20 ) mGycm TECHNIQUE: No contrast was administered. Low dose technique was utilized (average mAS-38 and kVp 120). 1.25 mm axial source images with a slice interval of 1.25-mm were reconstructed in lung windows. 2.5 mm axial source images with a slice interval of 2.5-mm were reconstructed in lung windows. 5.0 mm axial source images with a slice interval of 5.0-mm were reconstructed in soft tissue windows. COMPARISON: 01/22/2022 Emphysema: Mild emphysema. No noncalcified nodule or mass. Endobronchial lesion: None Aorta: Some calcified plaque in the aortic arch but no aortic aneurysm. CORONARY ARTERIES: Coronary artery calcification is seen. Heart: No cardiomegaly. Left subclavian pacemaker. Pulmonary artery: Normal Mediastinal nodes: Normal Other chest and abdominal findings: None CT/Low Dose CT Lung Screening IMPRESSION: Lung-RADS category 1 - Continue annual screening with LDCT in 12 months. IMPORTANT NOTES FOR USE: ACR Lung-RADS Version 1.1 Assessment Categories Release Date: 2018 Category: Coded 0-4 bases on nodule(s) with highest degree of suspicion. Negative screen is defined as categories 1 and 2; a positive screen is defined as categories 3 and 4. Category 3 and 4A nodules that are unchanged on interval CT should be coded as category 2, and individuals returned to screening in 12 months. Category 4X: Category 3 or 4 nodules with additional imaging findings that increase the suspicion of lung cancer, such as spiculation, GGN that doubles in size in 1 year, enlarged lymph notes, etc. Category Modifiers: S (significant finding unrelated to lung cancer) Electronically Signed: Sergio Damon MD at 9:09 EDT ,
--- NOTE | 2023-11-12 12:49 | CT_ITS ---
STUDY: CT ABDOMEN AND PELVIS WITH AND WITHOUT CONTRAST REASON FOR EXAM: Female, 58 years old. NEUROENDOCRINE TUMOR -- TRIPHASIC, NEUROENDOCRINE TUMOR PROTOCOL RADIATION DOSAGE (If Supplied By Facility): CTDIvol = ( 22.41 ) mGy, DLP = ( 3167.11 ) mGycm TECHNIQUE: Transaxial images were obtained from the dome of the diaphragm to the symphysis pubis without oral contrast. IV 100mL Isovue-300 was administered. Sagittal and coronal images were reconstructed. Individualized dose optimization techniques were used for this CT. COMPARISON: None. FINDINGS: The visualized lung bases are unremarkable. The visualized portions of the heart are within normal limits. There is decreased attenuation of the liver consistent with steatosis. There are surgical clips in the gallbladder fossa consistent with a prior cholecystectomy. Normal spleen. Normal pancreas. Normal bilateral adrenal glands. Normal right kidney. Normal left kidney. Suture line in the fundus of the stomach. No residual recurrent mass.. Normal small intestine. Normal colon. There is non-visualization of the appendix. Normal abdominal aorta. Normal inferior vena cava. Normal retroperitoneum. Normal urinary bladder. Normal abdominal wall. Status post transpedicular fixation at L4/L5. Dorsal column spinal stimulator in the right flank. CT/CT Abd/Pelvis W/WO Contrast IMPRESSION: No residual recurrent gastric mass. Electronically Signed: Sergio Damon MD at 9:44 EDT ,
--- NOTE | 2023-11-12 13:29 | BI_ITS ---
MAMMOGRAPHY - BILATERAL SCREENING REASON FOR EXAM: Female, 58 years old. Routine annual screening examination. PERTINENT HISTORY: Non-contributory. TECHNIQUE: Digital bilateral breast lucy (3D mammographic acquisition) in the CC and MLO projections. 2-D mediolateral oblique (MLO) and craniocaudad (CC) views of both breasts were obtained. CAD: Full Field Digital Mammography with Computer Added Detection was performed. COMPARISON: Comparison is made with prior study October 09, 2022 and February 27, 2021. FINDINGS: Breast Composition: There are scattered areas of fibroglandular density. There are no dominant masses or suspicious calcifications. The battery pack of a pacemaker device is seen in the left axilla. No other significant abnormalities are identified. There has been no significant change since the prior study. BI/SCRN MAMM (CAD)W/LUCY BILAT IMPRESSION: Stable bilateral screening mammogram. Yearly follow-up mammogram recommended. (A) ASSESSMENT CATEGORY: BIRADS Category 2: Benign. A letter regarding these results will be sent to the patient by the facility within 30 days. Approximately 10% of breast cancers are not detected by mammography. A normal mammogram should not delay biopsy of a clinically suspicious abnormality. [id number] Electronically Signed: Ming Roberts MD at 14:26 EDT ,
[2023-11-12 14:22] LABS: Anion Gap 4 (5-15); BUN 27 mg/dL (7-18); BUN/Creat Ratio 18.6 RATIO (10-20); Chloride 106 mmol/L (98-107); Creatinine, Serum 1.45 mg/dL (0.55-1.02); EST Glomerular Filtration Rate 39 mL/min (>60); Est Glom Filt Rate - Afr Amer 48 mL/min (>60); Glucose 116 mg/dL (74-106); Potassium 5.1 mmol/L (3.5-5.1); Sodium Level 136 mmol/L (136-145)
== END | disposition home or self-care (01) ==
LOC: OPBI 12:47
PROVIDERS: PCP Internal Medicine; Referring Provider Internal Medicine Hematology & Oncology; Visit Provider Internal Medicine Hematology & Oncology
DX: Z12.31 Encounter for screening mammogram for malignant neoplasm of breast (principal); C7A.8 Other malignant neuroendocrine tumors; Z87.891 Personal history of nicotine dependence; E87.5 Hyperkalemia
CPT/HCPCS: 36415; 71271; 74178; 77063; 77067; 80048; Q9967

== ENCOUNTER 2023-12-02 11:29 | Day surgery (SDC) | payer MEDICARE, MEDICAID, SELFPAY ==
[2023-11-29 14:31] VITALS: BMI 35.3
--- NOTE | 2023-11-29 15:21 | PCM.HP.BLA ---
History and Physical Date of Admission: 12/02/23 Orquidea Roman is a 58-year-old female that presents here today for a generator change. She has a hx of permanent pacemaker implantation for syncope that was revised in 2013. She also had a neuroendocrine tumor for which she underwent gastric resection and a cholecystectomy in May 2017. She in addition has a history of hypertension and tobacco use. She underwent tilt table testing evaluation in July 2018 which was negative. Her echocardiogram in 2015 had demonstrated an ejection fraction of 65% and a dobutamine stress echo was negative in January 2018. Heart cath in 12/2019 demonstrated single-vessel CAD with a totally occluded right and left to right collaterals noted and preserved left ventricular ejection fraction. Repeat heart cath in 2021 demonstrated similar findings. She states weekly, sharp chest pain. This occurs with rest and activity and is intermittent. This is located mid sternal and left chest. She denies palpitations. She denies bilateral lower extremity edema. She denies claudication. She states shortness of breath with activity. shortness of breath at rest, orthopnea, or PND. She denies chronic cough. She denies significant, sudden weight gain. She denies lightheadedness, dizziness, near-syncope, or syncope. She denies blood in urine, blood in stool, or epistaxis. He denies fever with chills. She denies myalgia. She states fatigue and weakness. Her exercise level has remained stable, though she is predominantly wheelchair-bound. Intake Vital Signs: See EMR Intake Visit Reasons: Generator change Batch Tester Required: No Allergies latex Allergy (Intermediate, Verified 09/09/23 10:20) skin irritation aspirin Adverse Reaction (Severe, Verified 09/09/23 10:20) Nausea/Vom/Diarrhea erythromycin base (Erythromycin Base) Adverse Reaction (Severe, Verified 09/09/23 10:20) Vomiting,diarrhea NSAIDS (Non-Steroidal Anti-Inflamma Adverse Reaction (Severe, Verified 09/09/23 10:20) Vomiting,diarrhea Medications: See EMR Ejection fraction %: 60 Have you fallen in the past year?: Yes (Due to legs giving out) [facility] Medical History Knee sprain Post-menopausal Cancer Arthritis Walker as ambulation aid Uses wheelchair High cholesterol Back pain Injury of back Migraine headache Dietary restriction History of IBS Smoker CPAP (continuous positive airway pressure) dependence COPD (chronic obstructive pulmonary disease) Emphysema, unspecified Leg cramps History of pain when walking History of edema History of echocardiogram History of stress test Cardiology follow-up encounter History of CHF (congestive heart failure) Chest pain Osteopenia (~10/2022) Lumbar radiculopathy Debility Leukocytosis Health care maintenance Pain of left thumb Polypharmacy Encephalopathy CHI (closed head injury) Bacteria in urine Health care maintenance Muscle spasm Tobacco use disorder, continuous Encounter for screening for malignant neoplasm of lung in current smoker with 30 pack year history or greater Osteoarthritis Greater trochanteric bursitis of left hip Infected dental carries Atherosclerotic heart disease of [place] coronary artery without angina pectoris Monomorphic ventricular tachycardia Hyperlipidemia Intermittent palpitations Diarrhea LEOY (obstructive sleep apnea) COPD (chronic obstructive pulmonary disease) Polycythemia Primary malignant neuroendocrine tumor of stomach Sacral contusion Low back strain Anxiety and depression Hypothyroidism GERD (gastroesophageal reflux disease) PTSD (post-traumatic stress disorder) Vitamin D deficiency Neuropathy Anemia Essential (primary) hypertension Neuroendocrine neoplasm of stomach Sick sinus syndrome Sinus pause Chronic lower back pain Chronic pain syndrome Tobacco dependence syndrome Familial combined hyperlipidemia Obesity Surgical History Squamous cell carcinoma History of lumbar fusion History of esophagogastroduodenoscopy (EGD) Status post insertion of spinal cord stimulator History of left heart catheterization (08/17/21) History of colonoscopy Presence of permanent cardiac pacemaker (2013) History of resection of stomach Hx of cholecystectomy History of elbow surgery History of hysterectomy History of appendectomy History of laparotomy history excision neuroendocrine tumor Family History Daughter Multiple sclerosisFather CAD (coronary artery disease) Heart disease Multiple sclerosisGrandfather Heart diseaseUncle Heart diseaseAunt No problems noted. Sister Colon cancerMother Hypertension Social History (Updated 09/09/23 @ 10:35 by Mouna Chamberlain) Smoking Status: Former smoker Tobacco: How many years used: 30 how long ago did patient quit smoking: A few months ago second hand exposure: Yes alcohol intake: never substance use type: does not use caffeine: Yes Type: carbonated beverages Number of servings: 1 and coffee Number of servings: 2 what type of physical activity do you participate in: none ivania/latter day: None seatbelt use: always do you feel safe at home: Yes ROS Const Const: Positive for fatigue and weakness; Negative for headache(s), frequent falls, difficulty sleeping or excessive sweating Eyes Eyes: Negative for loss of peripheral vision, transient loss of vision, blurry vision, double vision or tunnel vision ENT ENT: Positive for dizziness and balance problems; Negative for headache(s) or Nosebleed/epistaxis Cardio Chest Pain: Yes Frequency: weekly (couple days a week) Character: sharp Onset: other (Randomly) Location: mid sternal and left chest Duration: hours Palpitations: Yes feels like its: other (Fluttering) Edema: None Muscle aches with walking: None Resp Respiratory: Positive for SOB with activity (Only when walking with rollator); Negative for SOB at rest, SOB orthopnea\SOB lying down, Cough or paroxysmal nocturnal dyspnea GI GI: Negative nausea, vomiting, heartburn or black,tarry stools : Negative for hematuria Musc Musc: Positive for muscle weakness, joint pain and balance problems; Negative for muscle aches/ myalgia Skin Skin: Negative non-healing lesions, rash or unusual bruising Neuro Neuro: Positive for dizziness, lightheadedness and weakness; Negative for near syncope, syncope, frequent falls, headache(s), blurry vision, double vision or lack of coordination [place] Hematologic/Lymphatic: Negative for easy bleeding or easy bruising Endo Endo: Positive for fatigue; Negative for excessive sweating or increased thirst/drinking Psych Psych: Negative for anxiety or depression Allergy Allergy/Immunology: Negative for hives and Negative for rash Cardiology Exam Const Appearance: cooperative, healthy appearing, comfortable and no acute distress Nutritional Appearance: well nourished and obese Orientation: alert, awake and oriented x3 Head Head: normal to inspection Ears: hearing grossly normal bilaterally Nose: external nose normal Face and Sinus: face symmetric Mouth: moist mucous membranes Eyes General: appearance normal, both eyes and all related structures Eyelids: eyelids normal EOM: EOM intact bilaterally Neck Neck: normal visual inspection and no JVD Carotids: normal carotid upstroke Chest Chest inspection: normal inspection of the chest, symmetric chest movement and normal respiratory effort; Negative cough Auscultation: Bilateral: Clear to Auscultation Cardio Rate: regular rate Rhythm: regular rhythm Heart sounds: S1 normal and S2 normal; Negative rub, gallop or murmur GI GI: normal to inspection and obese Neuro General: patient alert, patient awake, patient oriented x3 and CN's II-XI intact bilaterally Skin Skin: no rashes or lesions noted Extremities Pulses: Normal: Right Posterior Tibial Pulse, Left Posterior Tibial Pulse, Right Radial Pulse and Left Radial Pulse Lower Extremity Edema: None: Left and Trace: Right Psych Psychological: normal affect Supplemental Info Supplemental Information ECHOCARDIOGRAM 09/23/2020 CONCLUSION: 1. Left ventricle is normal in size and thickness. Systolic ejection fraction is 60-65% with normal wall motion. Diastolic function isnormal 2. There are no significant valvular dysfunction seen 3. Right atrium is normal in size. There is pacemaker lead seen 4. Right ventricle is normal in size and systolic function. There is pacemaker lead seen 5. Estimated right ventricular systolic pressure is 20 mm Hg 6. There are no prior studies for comparison NM CARDIAC STRESS (SPECT) W/LEXISCAN 09/23/2020 EKG CONCLUSION 1. Patient did not complain of any chest pain with regadenoson. She had nausea which improved during recovery 2. Stress EKG is negative for inducible ischemia 3. Nuclear images will be read and reported separately CONCLUSION: 1. Nuclear stress test is nondiagnostic for inferior wall ischemia due to significant subdiaphragmatic and motion attenuation artifact. There is no inducible ischemia or infarct in the LAD territory 2. Calculated ejection fraction is 68%. There is abnormal inferior wall motion which could be affected by the subdiaphragmatic attenuation artifact versus infarct. Correlate with other imaging studies 3. TID ratio is 1.13. Left ventricle appears normal in size and thickness CARDIAC CATHETERIZATION 12/11/2019 CORONARY ANGIOGRAPHY DOMINANCE: Right Dominant LEFT HEART ASSESSMENT Left Ventricular Ejection Fraction: by LV Gram 60 % Normal LV wall motion Normal Left Ventricular systolic function LEFT MAIN: Mild calcification LEFT ANTERIOR DESCENDING ARTERY: Mild luminal irregularities less than 30%, No significant disease noted CIRCUMFLEX ARTERY: Mild luminal irregularities RIGHT CORONARY ARTERY: PROX RCA: is occluded COLLATERAL FLOW: Collateral flow from Left to Right Cardiac cath 08/2021: Mild to moderate disease noted in the left anterior descending artery with a totally occluded right coronary artery and left to right collaterals. RECOMMENDATIONS Medical therapy CORONARY ANGIOGRAPHY DOMINANCE:? Right Dominant LEFT HEART ASSESSMENT Left Ventricular Ejection Fraction: by LV Gram 55 % Inferior Basal Hypokinesis - Mild Normal Left Ventricular systolic function LEFT MAIN: Angiographically normal LEFT ANTERIOR DESCENDING ARTERY: MID LAD: Moderate luminal irregularities up to 50% CIRCUMFLEX ARTERY: Mild luminal irregularities less than 30% RIGHT CORONARY ARTERY: PROX RCA: is occluded COLLATERAL FLOW: Collateral flow from Left to Right Assessment and Plan Assessment and Plan (1) Atherosclerotic heart disease of [place] coronary artery without angina pectoris: Status: Chronic Qualifiers: [place] vs. transplanted heart: [place] heart Qualified Code(s): I25.10 - Atherosclerotic heart disease of [place] coronary artery without angina pectoris Comment: Essentially single-vessel CAD with a totally occluded right and left to right collaterals noted and preserved left ventricular ejection fraction. Plan: At this time, her symptoms are thought to be noncoronary artery disease related. Red flag symptoms reviewed with him. If such symptoms occur, she is asked to call our office for repeat evaluation. We can consider medication adjustment such as advancing isosorbide or amlodipine. We could also consider adding ranolazine/Ranexa therapy. Stress test may also be an option if concerns remain. Her last heart catheterization in 2021 showed occluded proximal RCA with collateral flow from left to right and mid LAD with 50% stenosis. (2) Presence of permanent cardiac pacemaker: Status: Resolved Comment: 2003, Gen change 2013 Plan: She has reached BEATRIZ. She will proceed with generator change. She will continue to follow with device clinic on an ongoing/regular basis. (3) Essential (primary) hypertension: Status: Chronic Plan: Patient's blood pressure is well-controlled. We will continue to monitor. We will not make any medication regimen changes. (4) Hyperlipidemia: Status: Chronic Qualifiers: Hyperlipidemia type: mixed hyperlipidemia Qualified Code(s): E78.2 - Mixed hyperlipidemia Plan: Lipid panel on 07/31/2023 showed total cholesterol: 180, HDL: 34, LDL: 81, and triglycerides: 324. She will continue fenofibrate and Crestor therapy. We will continue to monitor.
--- NOTE | 2023-12-02 12:56 | HP.PCM_ITS ---
History and Physical Date of Admission: 12/02/23 Abel is a 58-year-old female that presents here today for a generator change. She has a hx of permanent pacemaker implantation for syncope that was revised in 2013. She also had a neuroendocrine tumor for which she underwent gastric resection and a cholecystectomy in May 2017. She in addition has a history of hypertension and tobacco use. She underwent tilt table testing evaluation in July 2018 which was negative. Her echocardiogram in 2015 had demonstrated an ejection fraction of 65% and a dobutamine stress echo was negative in January 2018. Heart cath in 12/2019 demonstrated single-vessel CAD with a totally occluded right and left to right collaterals noted and preserved left ventricular ejection fraction. Repeat heart cath in 2021 demonstrated similar findings. She states weekly, sharp chest pain. This occurs with rest and activity and is intermittent. This is located mid sternal and left chest. She denies palpitations. She denies bilateral lower extremity edema. She denies claudication. She states shortness of breath with activity. shortness of breath at rest, orthopnea, or PND. She denies chronic cough. She denies significant, sudden weight gain. She denies lightheadedness, dizziness, near-syncope, or syncope. She denies blood in urine, blood in stool, or epistaxis. He denies fever with chills. She denies myalgia. She states fatigue and weakness. Her exercise level has remained stable, though she is predominantly wheelchair- bound. [facility] Medical History Knee sprain Post-menopausal Cancer Arthritis Walker as ambulation aid Uses wheelchair High cholesterol Back pain Injury of back Migraine headache Dietary restriction History of IBS Smoker CPAP (continuous positive airway pressure) dependence COPD (chronic obstructive pulmonary disease) Emphysema, unspecified Leg cramps History of pain when walking History of edema History of echocardiogram History of stress test Cardiology follow-up encounter History of CHF (congestive heart failure) Chest pain Osteopenia (~10/2022) Lumbar radiculopathy Debility Leukocytosis Health care maintenance Pain of left thumb Polypharmacy Encephalopathy CHI (closed head injury) Bacteria in urine Health care maintenance Muscle spasm Tobacco use disorder, continuous Encounter for screening for malignant neoplasm of lung in current smoker with 30 pack year history or greater Osteoarthritis Greater trochanteric bursitis of left hip Infected dental carries Atherosclerotic heart disease of [place] coronary artery without angina pectoris Monomorphic ventricular tachycardia Hyperlipidemia Intermittent palpitations Diarrhea ELOY (obstructive sleep apnea) COPD (chronic obstructive pulmonary disease) Polycythemia Primary malignant neuroendocrine tumor of stomach Sacral contusion Low back strain Anxiety and depression Hypothyroidism GERD (gastroesophageal reflux disease) PTSD (post-traumatic stress disorder) Vitamin D deficiency Neuropathy Anemia Essential (primary) hypertension Neuroendocrine neoplasm of stomach Sick sinus syndrome Sinus pause Chronic lower back pain Chronic pain syndrome Tobacco dependence syndrome Familial combined hyperlipidemia Obesity Surgical History Squamous cell carcinoma History of lumbar fusion History of esophagogastroduodenoscopy (EGD) Status post insertion of spinal cord stimulator History of left heart catheterization (08/17/21) History of colonoscopy Presence of permanent cardiac pacemaker (2013) History of resection of stomach Hx of cholecystectomy History of elbow surgery History of hysterectomy History of appendectomy History of laparotomy history excision neuroendocrine tumor Family History Daughter Multiple sclerosis Father CAD (coronary artery disease) Heart disease Multiple sclerosis Grandfather Heart disease Uncle Heart disease Aunt No problems noted. Sister Colon cancer Mother Hypertension Social History (Updated 09/09/23 @ 10:35 by Mouna Chamberlain) Smoking Status: Former smoker Tobacco: How many years used: 30 how long ago did patient quit smoking: A few months ago second hand exposure: Yes alcohol intake: never substance use type: does not use caffeine: Yes Type: carbonated beverages Number of servings: 1 and coffee Number of servings: 2 what type of physical activity do you participate in: none ivania/evangelical: None seatbelt use: always do you feel safe at home: Yes ROS Const Const: Positive for fatigue and weakness; Negative for headache(s), frequent falls, difficulty sleeping or excessive sweating Eyes Eyes: Negative for loss of peripheral vision, transient loss of vision, blurry vision, double vision or tunnel vision ENT ENT: Positive for dizziness and balance problems; Negative for headache(s) or Nosebleed/epistaxis Cardio Chest Pain: Yes Frequency: weekly (couple days a week) Character: sharp Onset: other (Randomly) Location: mid sternal and left chest Duration: hours Palpitations: Yes feels like its: other (Fluttering) Edema: None Muscle aches with walking: None Resp Respiratory: Positive for SOB with activity (Only when walking with rollator); Negative for SOB at rest, SOB orthopnea\SOB lying down, Cough or paroxysmal nocturnal dyspnea GI GI: Negative nausea, vomiting, heartburn or black,tarry stools : Negative for hematuria Musc Musc: Positive for muscle weakness, joint pain and balance problems; Negative for muscle aches/ myalgia Skin Skin: Negative non-healing lesions, rash or unusual bruising Neuro Neuro: Positive for dizziness, lightheadedness and weakness; Negative for near syncope, syncope, frequent falls, headache(s), blurry vision, double vision or lack of coordination [place] Hematologic/Lymphatic: Negative for easy bleeding or easy bruising Endo Endo: Positive for fatigue; Negative for excessive sweating or increased thirst/drinking Psych Psych: Negative for anxiety or depression Allergy Allergy/Immunology: Negative for hives and Negative for rash Cardiology Exam Const Appearance: cooperative, healthy appearing, comfortable and no acute distress Nutritional Appearance: well nourished and obese Orientation: alert, awake and oriented x3 Head Head: normal to inspection Ears: hearing grossly normal bilaterally Nose: external nose normal Face and Sinus: face symmetric Mouth: moist mucous membranes Eyes General: appearance normal, both eyes and all related structures Eyelids: eyelids normal EOM: EOM intact bilaterally Neck Neck: normal visual inspection and no JVD Carotids: normal carotid upstroke Chest Chest inspection: normal inspection of the chest, symmetric chest movement and normal respiratory effort; Negative cough Auscultation: Bilateral: Clear to Auscultation Cardio Rate: regular rate Rhythm: regular rhythm Heart sounds: S1 normal and S2 normal; Negative rub, gallop or murmur GI GI: normal to inspection and obese Neuro General: patient alert, patient awake, patient oriented x3 and CN's II-XI intact bilaterally Skin Skin: no rashes or lesions noted Extremities Pulses: Normal: Right Posterior Tibial Pulse, Left Posterior Tibial Pulse, Right Radial Pulse and Left Radial Pulse Lower Extremity Edema: None: Left and Trace: Right Psych Psychological: normal affect Supplemental Info Supplemental Information ECHOCARDIOGRAM 09/23/2020 CONCLUSION: 1. Left ventricle is normal in size and thickness. Systolic ejection fraction is 60-65% with normal wall motion. Diastolic function isnormal 2. There are no significant valvular dysfunction seen 3. Right atrium is normal in size. There is pacemaker lead seen 4. Right ventricle is normal in size and systolic function. There is pacemaker lead seen 5. Estimated right ventricular systolic pressure is 20 mm Hg 6. There are no prior studies for comparison NM CARDIAC STRESS (SPECT) W/LEXISCAN 09/23/2020 EKG CONCLUSION 1. Patient did not complain of any chest pain with regadenoson. She had nausea which improved during recovery 2. Stress EKG is negative for inducible ischemia 3. Nuclear images will be read and reported separately CONCLUSION: 1. Nuclear stress test is nondiagnostic for inferior wall ischemia due to significant subdiaphragmatic and motion attenuation artifact. There is no inducible ischemia or infarct in the LAD territory 2. Calculated ejection fraction is 68%. There is abnormal inferior wall motion which could be affected by the subdiaphragmatic attenuation artifact versus infarct. Correlate with other imaging studies 3. TID ratio is 1.13. Left ventricle appears normal in size and thickness CARDIAC CATHETERIZATION 12/11/2019 CORONARY ANGIOGRAPHY DOMINANCE: Right Dominant LEFT HEART ASSESSMENT Left Ventricular Ejection Fraction: by LV Gram 60 % Normal LV wall motion Normal Left Ventricular systolic function LEFT MAIN: Mild calcification LEFT ANTERIOR DESCENDING ARTERY: Mild luminal irregularities less than 30%, No significant disease noted CIRCUMFLEX ARTERY: Mild luminal irregularities RIGHT CORONARY ARTERY: PROX RCA: is occluded COLLATERAL FLOW: Collateral flow from Left to Right Cardiac cath 08/2021: Mild to moderate disease noted in the left anterior descending artery with a totally occluded right coronary artery and left to right collaterals. RECOMMENDATIONS Medical therapy CORONARY ANGIOGRAPHY DOMINANCE: Right Dominant LEFT HEART ASSESSMENT Left Ventricular Ejection Fraction: by LV Gram 55 % Inferior Basal Hypokinesis - Mild Normal Left Ventricular systolic function LEFT MAIN: Angiographically normal LEFT ANTERIOR DESCENDING ARTERY: MID LAD: Moderate luminal irregularities up to 50% CIRCUMFLEX ARTERY: Mild luminal irregularities less than 30% RIGHT CORONARY ARTERY: PROX RCA: is occluded COLLATERAL FLOW: Collateral flow from Left to Right Assessment & Plan Assessment/Plan (1) Pacemaker battery depletion: (2) Atherosclerotic heart disease of [place] coronary artery without angina pectoris: QUALIFIERS: [place] vs. transplanted heart: [place] heart Qualified Code(s): I25.10 - Atherosclerotic heart disease of [place] coronary artery without angina pectoris (3) Presence of permanent cardiac pacemaker: (4) Essential (primary) hypertension: (5) Hyperlipidemia: QUALIFIERS: Hyperlipidemia type: mixed hyperlipidemia Qualified Code(s): E78.2 - Mixed hyperlipidemia PLAN: Plan Pt will undergo a generator change today. She will follow up accordingly in our office.
--- NOTE | 2023-12-02 14:17 | CL.IE_ITS ---
Patient: RAMSES BRADSHAW Study Date: 12/02/2023 Performing: Samuel Keys MD : 1965 Age: 58 Gender: female PROCEDURES PERFORMED [id number])BATTERY REMOVAL+REPLACEMENT PACER-DUAL LEAD INDICATIONS Sinoatrial node dysfunction/Sick sinus syndrome PROCEDURE DETAILS The patient was brought to the Catheterization Lab in the postabsorptive nonsedated state. Informed consent was obtained prior to the procedure. Local anesthetic was given subcutaneously to the left subclavian region with Lidocaine 2%. PPM generator was then interrogated by the sas programmer. PPM generator was removed. New PPM generator was attached to the lead(s) and inserted into the pocket. PPM generator was then interrogated by the sas programmer. Device pocket was irrigated with antibiotic. Subcutaneous closure was completed with 3-0 Vicryl. Skin closure was completed with 4-0 Vicryl. Steri-strips applied to left subclavicular incision. The patient tolerated the procedure well. Estimated Blood Loss: 15 ml's IMPLANTED / EX-PLANTED DEVICES IMPLANTED DEVICE(S): PPM Generator - Talent Advisor: [employer], Model # [employer] MRI DR Model L111 , Serial # [id number] DEVICE PARAMETERS ATRIAL LEAD PARAMETERS: P wave- 3.6 (mV) Current- 2.5 (mA) threshold- 1.0 (V) impedence- 404 (OHMS) VENTRICULAR LEAD PARAMETERS: R wave- 6.7 (mV) Current- 1.2 (mA) threshold- 0.5 (V) impedence- 410 (OHMS) DEVICE PARAMETERS: Mode- DDD Lower rate- 60 Upper rate- 130 CONCLUSIONS / RECOMMENDATIONS Device Conclusions: Successful implantation of a dual chamber pacemaker battery change and replacement Device Recommendations: Follow up with Primary Care Physician PROCEDURE MEDICATIONS Versed 1 mg IV Fentanyl 50 mcg IV Versed 1 mg IV Versed 1 mg IV Fentanyl 25 mcg IV Fentanyl 25 mcg IV Versed 1 mg IV Oxygen: 2 L/min via nasal cannula Antibiotic given in appropriate timeframe. Ancef 2 Gm IV @ 12/02/2023 12:57:10 Signed By Samuel Keys MD On 12/02/2023 14:17:18 Samuel Keys MD
== END 2023-12-02 15:12 | disposition home or self-care (01) ==
PROVIDERS: PCP Internal Medicine; Referring Provider Internal Medicine Cardiovascular Disease; Visit Provider Internal Medicine Cardiovascular Disease
DX: Z45.018 Encounter for adjustment and management of other part of cardiac pacemaker (principal); J43.9 Emphysema, unspecified; I49.5 Sick sinus syndrome; I25.10 Atherosclerotic heart disease of native coronary artery without angina pectoris; I10 Essential (primary) hypertension; E78.2 Mixed hyperlipidemia; E03.9 Hypothyroidism, unspecified; K21.9 Gastro-esophageal reflux disease without esophagitis; G89.4 Chronic pain syndrome; R53.81 Other malaise; G47.33 Obstructive sleep apnea (adult) (pediatric); F32.A Depression, unspecified; F41.9 Anxiety disorder, unspecified; F43.10 Post-traumatic stress disorder, unspecified; G62.9 Polyneuropathy, unspecified; E55.9 Vitamin D deficiency, unspecified; M85.80 Other specified disorders of bone density and structure, unspecified site; M19.90 Unspecified osteoarthritis, unspecified site; E66.9 Obesity, unspecified; Z85.028 Personal history of other malignant neoplasm of stomach; Z98.1 Arthrodesis status; Z79.899 Other long term (current) drug therapy; Z78.0 Asymptomatic menopausal state; Z87.891 Personal history of nicotine dependence
CPT/HCPCS: 33228; 99152; 99153; J7040; J7050; A4216

== ENCOUNTER 2023-12-04 16:10 | Emergency (ER) | payer MEDICARE, MEDICAID, SELFPAY ==
[2023-12-04] VITALS (7 sets, daily range): BP systolic 100–132; BP diastolic 66–82; PULSE 60–95; RESP 14–18; TEMP 36.4–36.8; O2SAT 96–98; BMI 39.2
--- NOTE | 2023-12-04 16:15 | EKG12_ITS ---
Test Reason : CP Blood Pressure : / mmHG Vent. Rate : 065 BPM Atrial Rate : 065 BPM P-R Int : 164 ms QRS Dur : 082 ms QT Int : 444 ms P-R-T Axes : 015 066 067 degrees QTc Int : 461 ms Normal sinus rhythm Normal ECG Reconfirmed by Axel Gamboa ([id number]), editorial cartoonist IOANA PILLAI ([id number]) on 12/06/2023 9:31:00 AM Referred By: Confirmed By:Axel Gamboa
--- NOTE | 2023-12-04 16:28 | RAD_ITS ---
STUDY: X-RAY CHEST REASON FOR EXAM: Female, 58 years old. chest pain TECHNIQUE: AP portable COMPARISON: None. FINDINGS: The lungs are clear and expanded. There is no demonstrated pleural abnormality. Normal size heart. Normal mediastinum and archana. Normal visualized pulmonary arteries. Normal visualized aortic arch and descending thoracic aorta. Pacemaker noted on the left with one of the electrodes in the vicinity of the right atrial appendage. The other electrode is either in the distal right atrial chamber or proximal right ventricle. Clinical correlation is recommended Normal visualized thoracic spine. Normal visualized ribs, clavicles, and shoulders. Dorsal spinal stimulator noted within the thoracic and upper lumbar canal There is no demonstrated abnormality of the visualized soft tissue structures of the upper abdomen. RAD/Chest 1 View (Portable) IMPRESSION: No acute cardiopulmonary pathology status post pacemaker placement Questionable pacer lead localization N.B. : The above Results were Read Back by Mainor Trujillo MD to Dk Noel MD, and understanding confirmed on 12/04/2023 17:17:16 (ET). Electronically Signed: Mainor Trujillo MD at 17:22 EDT ,
[2023-12-04 16:29] LABS: Absolute Lymphocyte Count 3.63 X10^3/uL (0.83-4.51); Absolute Neutrophil Count 5.7 X10^3/uL (2.0-7.7); Basophil# 0.04 X10^3/uL; Basophil% 0.4 % (0-1); Eosinophil# 0.46 X10^3/uL; Eosinophils% 4.4 % (0-5); Hematocrit 39.6 % (37-47); Hemoglobin 12.7 g/dL (12.0-15.0); Lymphocyte # 3.63 X10^3/ul (0.83-4.51); Lymphocyte % 34.5 % (19-41); Mean Corp Hgb Conc 32.1 g/dL (32-36); Mean Corpuscular Hgb 28.2 pg (27.0-32.0); Mean Platelet Vol. 9.2 fl (6.2-12.0); Monocyte# 0.58 X10^3/uL; Monocyte% 5.5 % (0-10); NRBC Flagged by Analyzer 0 % (0-5); Neutrophil # 5.74 X10^3/uL (2.7-7.7); Neutrophil % 54.4 % (47-70); Platelet Count 258 K/mm3 (150-450); RBC Distribution Width CV 13.8 % (11.6-14.6); RBC Distribution Width SD 44.3 fl (35.1-43.9); White Blood Count 10.5 K/mm3 (4.4-11.0)
[2023-12-04 16:59] LABS: Anion Gap 5 (5-15); BUN 17 mg/dL (7-18); BUN/Creat Ratio 12.9 RATIO (10-20); Calcium,Total 8.8 mg/dL (8.5-10.1); Chloride 109 mmol/L (98-107); Creatinine, Serum 1.32 mg/dL (0.55-1.02); EST Glomerular Filtration Rate 44 mL/min (>60); Est Glom Filt Rate - Afr Amer 53 mL/min (>60); Glucose 165 mg/dL (74-106); Potassium 3.9 mmol/L (3.5-5.1); Sodium Level 140 mmol/L (136-145); Troponin-I HS (w/2H Reflex) 5 pg/mL (3.0-54.0)
--- NOTE | 2023-12-04 17:24 | ED.VIS.CHEST ---
HPI History of Present Illness Chief Complaint: Chest Pain Informant: patient Onset/Context/Timing Onset: Today Activity at onset: sudden Timing: Intermittent Quality: Positive for Tightness Location: Substernal, Right Parasternal, Left Parasternal, Right Chest and Left Chest Worsened By: Movement of Torso Relieved By: Rest Associated Symptoms: Positive for Nausea, Vomiting, Diaphoresis, Dyspnea, Lightheadedness and Palpitations; Negative for Cough, Fever or Acid Reflux Narrative Narrative: Patient presents with chest pain that began today. Patient states it began rather suddenly. Patient states it has been intermittent. Patient states it feels like a tightness across her entire chest. Patient states it radiates up into her neck. Patient states it is worse with movement. Patient states it is better with rest. Patient admits to some nausea and vomiting. Patient admits to some shortness of breath and diaphoresis. Patient also admits to some palpitations and lightheadedness. Patient had her pacemaker replaced yesterday. CVD Risk Factors: Positive for Hypertension and Smoking; Negative for Diabetes, Hypercholesterolemia or Family History 1' </=55 PE Risk Factors: Positive for Recent Travel/Surgery and Cancer; Negative for Recent Immobilization, Prior DVT or PE or OCP + Smoking + >/=35 PFSH PFSH Medical History Pacemaker battery depletion History of tobacco use Hyperkalemia Knee sprain Post-menopausal Cancer Arthritis Walker as ambulation aid Uses wheelchair High cholesterol Back pain Injury of back Migraine headache Dietary restriction History of IBS Smoker CPAP (continuous positive airway pressure) dependence COPD (chronic obstructive pulmonary disease) Emphysema, unspecified Leg cramps History of pain when walking History of edema History of echocardiogram History of stress test Cardiology follow-up encounter History of CHF (congestive heart failure) Chest pain Osteopenia (~10/2022) Lumbar radiculopathy Debility Leukocytosis Health care maintenance Pain of left thumb Polypharmacy Encephalopathy CHI (closed head injury) Bacteria in urine Health care maintenance Muscle spasm Tobacco use disorder, continuous Encounter for screening for malignant neoplasm of lung in current smoker with 30 pack year history or greater Osteoarthritis Greater trochanteric bursitis of left hip Infected dental carries Atherosclerotic heart disease of [place] coronary artery without angina pectoris Monomorphic ventricular tachycardia Hyperlipidemia Intermittent palpitations Diarrhea ELOY (obstructive sleep apnea) COPD (chronic obstructive pulmonary disease) Polycythemia Primary malignant neuroendocrine tumor of stomach Sacral contusion Low back strain Anxiety and depression Hypothyroidism GERD (gastroesophageal reflux disease) PTSD (post-traumatic stress disorder) Vitamin D deficiency Neuropathy Anemia Essential (primary) hypertension Neuroendocrine neoplasm of stomach Sick sinus syndrome Sinus pause Chronic lower back pain Chronic pain syndrome Tobacco dependence syndrome Familial combined hyperlipidemia Obesity Home Medications ?Medication ?Instructions ?Recorded ?Last Taken ?Type duloxetine 60 mg capsule,delayed 120 mg PO DAILY 05/16/22 08/01/23 History release gabapentin 300 mg capsule 300 mg PO TID 05/16/22 12/02/23 History isosorbide mononitrate 60 mg 60 mg PO QAM #90 tabs 06/13/22 12/02/23 Rx tablet,extended release 24 hr walker (Ultra-Light Rollator misc) #1 ea 10/17/22 Unknown Rx potassium chloride 20 mEq 20 meq PO DAILY 01/30/23 Unknown History tablet,extended release(part/cryst) denosumab 60 mg/mL subcutaneous 60 mg subcut [id number] #1 mL 02/15/23 Unknown Rx syringe (Prolia) lisinopril 20 mg tablet 20 mg PO DAILY #90 tabs 02/20/23 07/31/23 Rx metoprolol tartrate 100 mg tablet 100 mg PO BID blood pressure, 04/26/23 12/02/23 Rx heart #180 tabs clonazepam 0.5 mg tablet 0.5 mg PO TID 07/16/23 08/01/23 History amlodipine 5 mg tablet 5 mg PO DAILY 07/25/23 12/02/23 History hydrochlorothiazide 12.5 mg tablet 12.5 mg PO DAILY 07/25/23 Unknown History levothyroxine 25 mcg tablet 25 mcg PO DAILY 07/25/23 12/02/23 History magnesium oxide 400 mg (241.3 mg 400 mg PO DAILY 07/25/23 Unknown History magnesium) tablet omeprazole 40 mg capsule,delayed 40 mg PO DAILY 07/25/23 12/02/23 History release fenofibrate 54 mg tablet 54 mg PO DAILY #90 tabs 07/31/23 Unknown Rx oxycodone-acetaminophen 5 mg-325 1 tab PO Q6H PRN pain 3 days #5 08/01/23 Unknown Rx mg tablet tabs sumatriptan succinate 50 mg tablet See Rx Instructions PO .COMPLEX 08/09/23 Unknown Rx (Imitrex) #10 tabs buspirone 10 mg tablet 10 mg PO TID 09/09/23 12/02/23 History menthol 4 % topical gel (Biofreeze 1 applic topical TID PRN pain 09/09/23 Unknown History (menthol)) naloxone 4 mg/actuation nasal spray 4 mg intranasal ONCE PRN opioid 09/09/23 Unknown History overdose ondansetron 8 mg disintegrating 8 mg PO Q6H PRN PRN nausea and 09/09/23 Unknown History tablet vomiting rosuvastatin 20 mg tablet 20 mg PO QHS 09/09/23 Unknown History trazodone 150 mg tablet 150 mg PO QHS 09/09/23 Unknown History trazodone 50 mg tablet 50 mg PO QHS 09/09/23 Unknown History cyclobenzaprine 10 mg tablet 10 mg PO BID PRN muscle spasm #180 10/29/23 Unknown Rx tabs chlorhexidine gluconate 4 % 1 applic topical .COMPLEX #118 mL 11/26/23 Unknown Rx topical liquid Allergy/AdvReac Type Severity Reaction Status Date / Time latex Allergy Intermediate skin Verified 12/04/23 16:12 irritation aspirin AdvReac Severe Nausea/Vom/ Verified 12/04/23 16:12 Diarrhea erythromycin base AdvReac Severe Vomiting,di Verified 12/04/23 16:12 (Erythromycin Base) arrhea NSAIDS (Non-Steroidal AdvReac Severe Vomiting,di Verified 12/04/23 16:12 Anti-Inflamma arrhea Family History Daughter Multiple sclerosis Father CAD (coronary artery disease) Heart disease Multiple sclerosis Grandfather Heart disease Uncle Heart disease Aunt No problems noted. Sister Colon cancer Mother Hypertension Surgical History Squamous cell carcinoma History of lumbar fusion History of esophagogastroduodenoscopy (EGD) Status post insertion of spinal cord stimulator History of left heart catheterization (08/17/21) History of colonoscopy Presence of permanent cardiac pacemaker (2013) History of resection of stomach Hx of cholecystectomy History of elbow surgery History of hysterectomy History of appendectomy History of laparotomy history excision neuroendocrine tumor Social History Smoking Status: Former smoker Tobacco: How many years used: 30 how long ago did patient quit smoking: A few months ago second hand exposure: Yes alcohol intake: never substance use type: does not use caffeine: Yes Type: carbonated beverages Number of servings: 1 and coffee Number of servings: 2 what type of physical activity do you participate in: none ivania/mandaen: None seatbelt use: always do you feel safe at home: Yes ROS ROS ED Constitutional Constitutional ED: Denies chills or fever(s) Eyes Eyes: Denies blurry vision or change in vision ENT ENT ED: Denies rhinorrhea or sore throat Cardiovascular Cardiovascular: Reports chest pain and palpitations Respiratory/Chest Respiratory/Chest: Reports dyspnea; Denies cough Gastrointestinal Gastrointestinal: Reports nausea and vomiting; Denies abdominal pain Genitourinary Genitourinary ED: Denies dysuria or hematuria Musculoskeletal Musculoskeletal: Reports back pain and neck pain Integumentary Denies abscess or rash Neurologic Neurologic: Reports headache(s); Denies weakness Allergic/Immunologic Allergic/Immunologic ED: Denies mouth swelling or urticaria EXAM Physical Exam Const Vital Signs: 12/04/23 16:12 12/04/23 17:30 12/04/23 17:42 Temperature 97.6 F L Temperature Source Temporal Pulse Rate 95 64 Respiratory Rate 18 16 Respiratory Effort Blood Pressure 107/72 112/67 Blood Pressure Mean 83 82 Pulse Ox 96 97 Oxygen Delivery Method Room Air Room Air 12/04/23 17:50 12/04/23 18:00 12/04/23 19:00 Temperature Temperature Source Pulse Rate 62 60 Respiratory Rate 16 14 Respiratory Effort Normal Non-Labored Blood Pressure 116/82 H 117/66 Blood Pressure Mean 93 79 Pulse Ox 98 Oxygen Delivery Method Room Air Positive well nourished and well developed General Appearance ED: well developed and NAD HEENT Reports moist mucous membranes Neck supple and no JVD Chest Wall Chest Narrative: The incision over the left anterior chest is healing well. There is no sign of any infection. There is some normal healing erythema. There is no warmth. There is no discharge or drainage noted. Resp normal respiratory effort and clear to auscultation bilaterally Cardio regular rate and regular rhythm GI soft to palpation, non-tender and non-distended Extremity normal to inspection General Extremety ED: Negative for edema or tenderness General Extremity: Negative for edema Neuro oriented x3, CN's II-XII intact bilaterally and no sensory deficits noted Sensorium / Orientation: awake and alert Motor Exam: strength 5/5 throughout Psych mental status grossly normal MDM MDM MDM Narrative Medical decision making narrative: Differential diagnosis includes cardiac dysrhythmia, cardiac ischemia, pneumonia, pneumothorax, pulmonary embolism electrolyte abnormality, and musculoskeletal pain. EKG will be obtained to assess for cardiac dysrhythmia and cardiac ischemia. Chest x-ray will be obtained to assess for pneumonia and pneumothorax. CBC will be obtained to assess for leukocytosis and anemia. Basic metabolic profile will be obtained to assess for electrolyte abnormality and renal function. High-sensitivity troponin will be obtained to assess for cardiac ischemia. 2-hour repeat high-sensitivity troponin will be obtained to assess for ongoing cardiac ischemia. CTA of the chest will be obtained to assess for pulmonary embolism. Lab Data Attestation: I reviewed the patient's lab results. Lab results narrative: CBC was reviewed and was within normal limits. Basic metabolic profile was reviewed. Creatinine was slightly elevated at 1.32. Glucose was mildly elevated at 165. High-sensitivity troponin was reviewed and was normal at 5. Labs: Laboratory Results - last 24 hr 12/04/23 15:55 WBC 10.5 RBC 4.50 Hgb 12.7 Hct 39.6 MCV 88.0 MCH 28.2 MCHC 32.1 RDW Std Deviation 44.3 H RDW Coeff of [place] 13.8 Plt Count 258 MPV 9.2 Immature Gran % (Auto) 0.800 Neut % (Auto) 54.4 Lymph % (Auto) 34.5 [place] % (Auto) 5.5 Eos % (Auto) 4.4 Baso % (Auto) 0.4 Absolute Neuts (auto) 5.7 Absolute Lymphs (auto) 3.63 Nucleated RBC % 0 Sodium 140 Potassium 3.9 Chloride 109 H Carbon Dioxide 25.0 Anion Gap 5 BUN 17 Creatinine 1.32 H Est GFR (MDRD) Af Amer 53 L Est GFR (MDRD) Non-Af 44 L BUN/Creatinine Ratio 12.9 Glucose 165 H Calcium 8.8 Troponin I High Sens 5 Radiography Chest X-Ray - ED: 1 View, Read by ED Physician, Read by Radiologist and No Acute Disease Diagnostic Testing: Clinical Impression(s) from Imaging Studies Chest X-Ray 12/04/23 16:28 IMPRESSION: No acute cardiopulmonary pathology status post pacemaker placement Questionable pacer lead localization N.B. : The above Results were Read Back by Mainor Trujillo MD to Dk Noel MD, and understanding confirmed on 12/04/2023 17:17:16 (ET). Electronically Signed: Mainor Trujillo MD at 17:22 EDT , ADDENDUM: 12/04/23 1729 IMPRESSION: No acute cardiopulmonary pathology status post pacemaker placement Questionable pacer lead localization N.B. : The above Results were Read Back by Mainor Trujillo MD to Dk Noel MD, and understanding confirmed on 12/04/2023 17:17:16 (ET). Electronically Signed: Mainor Trujillo MD at 17:22 EDT , Chest CTA 12/04/23 18:05 IMPRESSION: Minor atelectasis within the dependent portion of the lower lobes but no acute cardiopulmonary pathology ASHD and multi vessel coronary artery calcification without evidence for aortic aneurysm, dissection or pulmonary embolus Electronically Signed: Mainor Trujillo MD at 18:44 EDT , Portable 1 view chest x-ray was obtained. On my independent interpretation, lung [place] are clear. There is normal cardiac silhouette. Bony thorax is normal. There is no acute process noted. Radiologist also interpreted the x-ray and noted questionable pacemaker lead displacement. Because of the patient's history of cancer and recent pacemaker placement, CT of the chest was obtained. There is atelectasis in the lower lobes but no acute cardiopulmonary pathology. There is no aortic dissection, aneurysm, or pulmonary embolism. There is no displacement of the pacemaker leads. This was interpreted by the radiologist and was also independently reviewed by myself. EKG Initial EKG: Attestation: I personally reviewed and interpreted this EKG as follows: Interpretation: Sinus Rhythm (65) and No Acute Injury Pattern Comments: EKG was obtained. On my independent interpretation, it showed a normal sinus rhythm with a rate of 65. MI interval, QRS interval, and QTc intervals were all normal. [place] was normal. There are no acute ST or T wave changes. Prior EKG tracings: available for review Prior: Unchanged (07/12/2023) Treatment and Re-Evaluation :: Patient was given IV fluids. Patient states she is unable to tolerate aspirin so this was withheld. Patient was given a dose of morphine here. Patient was feeling better on reevaluation. Patient was advised of her findings. Patient was instructed to follow-up with her primary care physician and business records manager in 5 to 7 days. Patient was instructed return if worse in any way. Patient understood and was agreeable with the plan. All questions were answered. Discharge Plan Triage Chief Complaint: Chest Pain ED Provider: Keon Ramirez Dx/Rx/DC Orders Clinical Impression: Chest pain, Tobacco use disorder, continuous Instructions: ED Chest Pain, Uncertain Cause Prescriptions: No Action duloxetine 60 mg capsule,delayed release(DR/EC) 120 mg PO DAILY Rx Instructions: rx by [facility] gabapentin 300 mg capsule 300 mg PO TID Patient Comments: TAKE 1 CAPSULE BY MOUTH THREE TIMES A DAY trazodone 150 mg tablet 150 mg PO QHS Rx Instructions: Take with 50 mg tablet to = 200 mg qhs potassium chloride 20 mEq tablet,ER particles/crystals 20 meq PO DAILY clonazepam 0.5 mg tablet 0.5 mg PO TID trazodone 50 mg tablet 50 mg PO QHS Rx Instructions: Take with 150 mg tablet to = 200 mg qhs buspirone 10 mg tablet 10 mg PO TID rosuvastatin 20 mg tablet 20 mg PO QHS Biofreeze (menthol) 4 % gel 1 applic topical TID PRN (Reason: pain) naloxone 4 mg/actuation spray,non-aerosol 4 mg intranasal ONCE PRN (Reason: opioid overdose) Rx Instructions: spray 1 dose into ONE nostril; alternate nostrils w each dose until help arrives magnesium oxide 400 mg (241.3 mg magnesium) tablet 400 mg PO DAILY amlodipine 5 mg tablet 5 mg PO DAILY Rx Instructions: TAKE ONE TABLET BY MOUTH DAILY omeprazole 40 mg capsule,delayed release(DR/EC) 40 mg PO DAILY Rx Instructions: TAKE ONE CAPSULE BY MOUTH DAILY FOR STOMACH levothyroxine 25 mcg tablet 25 mcg PO DAILY Rx Instructions: TAKE ONE TABLET BY MOUTH DAILY FOR THYROID hydrochlorothiazide 12.5 mg tablet 12.5 mg PO DAILY Rx Instructions: TAKE 1 TABLET BY MOUTH EVERY DAY oxycodone-acetaminophen 5-325 mg tablet 1 tab PO Q6H PRN (Reason: pain) 3 Days Qty: 5 0RF ondansetron 8 mg tablet,disintegrating 8 mg PO Q6H PRN PRN (Reason: nausea and vomiting) Rx Instructions: TAKE ONE TABLET BY MOUTH EVERY 6 HOURS NEEDED FOR NAUSEA AND VOMITING isosorbide mononitrate 60 mg tablet extended release 24 hr 60 mg PO QAM Qty: 90 3RF (DME) Ultra-Light Rollator Misc See Rx Instructions .Route Qty: 1 0RF Rx Instructions: As directed Prolia 60 mg/mL syringe 60 mg subcut [id number] Qty: 1 2RF lisinopril 20 mg tablet 20 mg PO DAILY Qty: 90 1RF metoprolol tartrate 100 mg tablet 100 mg PO BID Qty: 180 1RF Rx Instructions: TAKE 1 TABLET BY MOUTH TWICE A DAY FOR BLOOD PRESSURE/HEART fenofibrate 54 mg tablet 54 mg PO DAILY Qty: 90 1RF sumatriptan succinate [Imitrex] 50 mg tablet See Rx Instructions PO .COMPLEX Qty: 10 3RF Rx Instructions: take 1 tab at onset of headache; if no relief may repeat 1 tab after at least 2 hrs; max = 4 tabs/24 hr PO cyclobenzaprine 10 mg tablet 10 mg PO BID PRN (Reason: muscle spasm) Qty: 180 1RF chlorhexidine gluconate 4 % liquid 1 applic topical .COMPLEX Qty: 118 0RF Rx Instructions: use as body wash night before and morning of pacemaker procedure: apply from neck down, rinse and pat dry. Primary Care Provider: Charla Wadsworth Referrals: Charla Wadsworth MD [Primary Care Provider] - 5-7 Days Print Language: [place] Disposition Disposition: Home, Self Care
--- NOTE | 2023-12-04 18:05 | CT_ITS ---
STUDY: CTA CHEST REASON FOR EXAM: Female, 58 years old. Chest pain RADIATION DOSAGE (If Supplied By Facility): CTDIvol = ( 16.18 ) mGy, DLP = ( 510.41 ) mGycm TECHNIQUE: The examination was performed with the intravenous administration of IV 100mL [id number]-370. Post-processing of the angiographic images was performed, with multiplanar reformation and 3D reconstruction. Individualized dose optimization techniques were used for this CT. COMPARISON: December 03, 2022 FINDINGS: Normal enhancement of the main pulmonary artery and right and left pulmonary arteries. Normal enhancement of the bilateral peripheral pulmonary arteries. There is no demonstrated pulmonary embolism. Minor atherosclerotic change of the aorta without evidence for aneurysm. There is no demonstrated aortic dissection. Normal heart and pericardium. There is multivessel coronary artery calcification Normal mediastinum. Normal hilar regions. Normal visualized trachea and bronchi. The lungs are well expanded. Minimal atelectasis within the dependent portion of the lower lobes. No focal infiltration or pulmonary nodule Normal pleura. Normal chest wall structures. Dorsal spine demonstrates degenerative change. Spinal stimulator noted within the spinal canal Gallbladder has been removed surgically CT/CTA Chest W/WO Contrast IMPRESSION: Minor atelectasis within the dependent portion of the lower lobes but no acute cardiopulmonary pathology ASHD and multi vessel coronary artery calcification without evidence for aortic aneurysm, dissection or pulmonary embolus Electronically Signed: Mainor Trujillo MD at 18:44 EDT ,
[2023-12-04 18:23] LABS: Reflex Troponin-HS? (from REC) Y
[2023-12-04] MEDS: Morphine 4 MG/ML Syringe IV (18:23)
== END 2023-12-04 21:00 | disposition home or self-care (01) ==
PROVIDERS: Emergency Provider Emergency Medicine; PCP Internal Medicine; Visit Provider Emergency Medicine
DX: R07.9 Chest pain, unspecified (principal); J43.9 Emphysema, unspecified; R11.2 Nausea with vomiting, unspecified; I25.10 Atherosclerotic heart disease of native coronary artery without angina pectoris; I10 Essential (primary) hypertension; E78.00 Pure hypercholesterolemia, unspecified; E78.49 Other hyperlipidemia; R42 Dizziness and giddiness; R06.00 Dyspnea, unspecified; Z72.0 Tobacco use; Z95.0 Presence of cardiac pacemaker
CPT/HCPCS: 71045; 71275; 80048; 84484; 85025; 93005; 96374; 99283; Q9967; A4216

== ENCOUNTER 2024-01-10 16:30 | Emergency (ER) | payer MEDICARE, MEDICAID, SELFPAY ==
[2024-01-10] VITALS (8 sets, daily range): BP systolic 100–135; BP diastolic 51–89; PULSE 60–111; RESP 13–20; TEMP 36.6–36.9; O2SAT 95–100; BMI 41.7
--- NOTE | 2024-01-10 17:35 | EX.ED.DYSGE1 ---
HPI <EDWIN Mosley - Last Filed: 01/10/24 21:29> History of Present Illness Chief Complaint: Chest Pain Narrative Narrative: Patient is a 58-year-old female with history of sick sinus syndrome, who had a replacement of the ICD defibrillator greater than 1 month ago, who does see cardiology here, as well as chronic debility, low back pain, who lives in assisted living presenting to the emergency department for ongoing pain to her chest that goes through to her back. Patient states that this has been ongoing for 1 year, she has been seen in the ER as well as Dr. Keys. Patient states today, she was complaining about the pain, she was talking to her nurses at the assisted living who referred her to the emergency department. Patient states that last evening, she also in her wheelchair ran into a door and injured her left ribs. She states that this to be making it worse. [facility] <EDWIN Mosley - Last Filed: 01/10/24 21:29> [facility] Medical History (Updated 01/10/24 @ 21:28 by EDWIN Mosley) Pacemaker battery depletion History of tobacco use Hyperkalemia Knee sprain Post-menopausal Cancer Arthritis Walker as ambulation aid Uses wheelchair High cholesterol Back pain Injury of back Migraine headache Dietary restriction History of IBS Smoker CPAP (continuous positive airway pressure) dependence COPD (chronic obstructive pulmonary disease) Emphysema, unspecified Leg cramps History of pain when walking History of edema History of echocardiogram History of stress test Cardiology follow-up encounter History of CHF (congestive heart failure) Chest pain Osteopenia (~10/2022) Lumbar radiculopathy Debility Leukocytosis Health care maintenance Pain of left thumb Polypharmacy Encephalopathy CHI (closed head injury) Bacteria in urine Health care maintenance Muscle spasm Tobacco use disorder, continuous Encounter for screening for malignant neoplasm of lung in current smoker with 30 pack year history or greater Osteoarthritis Greater trochanteric bursitis of left hip Infected dental carries 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 Monomorphic ventricular tachycardia Hyperlipidemia Intermittent palpitations Diarrhea ELOY (obstructive sleep apnea) COPD (chronic obstructive pulmonary disease) Polycythemia Primary malignant neuroendocrine tumor of stomach Sacral contusion Low back strain Anxiety and depression Hypothyroidism GERD (gastroesophageal reflux disease) PTSD (post-traumatic stress disorder) Vitamin D deficiency Neuropathy Anemia Essential (primary) hypertension Neuroendocrine neoplasm of stomach Sick sinus syndrome Sinus pause Chronic lower back pain Chronic pain syndrome Tobacco dependence syndrome Familial combined hyperlipidemia Obesity Home Medications ?Medication ?Instructions ?Recorded ?Last Taken ?Type duloxetine 60 mg capsule,delayed 120 mg PO DAILY 05/16/22 08/01/23 History release gabapentin 300 mg capsule 300 mg PO TID 05/16/22 12/02/23 History isosorbide mononitrate 60 mg 60 mg PO QAM #90 tabs 06/13/22 12/02/23 Rx tablet,extended release 24 hr walker (Ultra-Light Rollator misc) #1 ea 10/17/22 Unknown Rx potassium chloride 20 mEq 20 meq PO DAILY 01/30/23 Unknown History tablet,extended release(part/cryst) denosumab 60 mg/mL subcutaneous 60 mg subcut [id number] #1 mL 02/15/23 Unknown Rx syringe (Prolia) lisinopril 20 mg tablet 20 mg PO DAILY #90 tabs 02/20/23 07/31/23 Rx metoprolol tartrate 100 mg tablet 100 mg PO BID blood pressure, 04/26/23 12/02/23 Rx heart #180 tabs clonazepam 0.5 mg tablet 0.5 mg PO TID 07/16/23 08/01/23 History hydrochlorothiazide 12.5 mg tablet 12.5 mg PO DAILY 07/25/23 Unknown History levothyroxine 25 mcg tablet 25 mcg PO DAILY 07/25/23 12/02/23 History magnesium oxide 400 mg (241.3 mg 400 mg PO DAILY 07/25/23 Unknown History magnesium) tablet omeprazole 40 mg capsule,delayed 40 mg PO DAILY 07/25/23 12/02/23 History release fenofibrate 54 mg tablet 54 mg PO DAILY #90 tabs 07/31/23 Unknown Rx oxycodone-acetaminophen 5 mg-325 1 tab PO Q6H PRN pain 3 days #5 08/01/23 Unknown Rx mg tablet tabs sumatriptan succinate 50 mg tablet See Rx Instructions PO .COMPLEX 08/09/23 Unknown Rx (Imitrex) #10 tabs buspirone 10 mg tablet 10 mg PO TID 09/09/23 12/02/23 History menthol 4 % topical gel (Biofreeze 1 applic topical TID PRN pain 09/09/23 Unknown History (menthol)) naloxone 4 mg/actuation nasal spray 4 mg intranasal ONCE PRN opioid 09/09/23 Unknown History overdose ondansetron 8 mg disintegrating 8 mg PO Q6H PRN PRN nausea and 09/09/23 Unknown History tablet vomiting rosuvastatin 20 mg tablet 20 mg PO QHS 09/09/23 Unknown History trazodone 150 mg tablet 150 mg PO QHS 09/09/23 Unknown History trazodone 50 mg tablet 50 mg PO QHS 09/09/23 Unknown History cyclobenzaprine 10 mg tablet 10 mg PO BID PRN muscle spasm #180 10/29/23 Unknown Rx tabs chlorhexidine gluconate 4 % 1 applic topical .COMPLEX #118 mL 11/26/23 Unknown Rx topical liquid amlodipine 10 mg tablet 10 mg PO QDAY #90 tabs 01/13/24 Unknown Rx Allergy/AdvReac Type Severity Reaction Status Date / Time latex Allergy Intermediate skin Verified 01/10/24 16:31 irritation aspirin AdvReac Severe Nausea/Vom/ Verified 01/10/24 16:31 Diarrhea erythromycin base AdvReac Severe Vomiting,di Verified 01/10/24 16:31 (Erythromycin Base) arrhea NSAIDS (Non-Steroidal AdvReac Severe Vomiting,di Verified 01/10/24 16:31 Anti-Inflamma arrhea Family History Daughter Multiple sclerosis Father CAD (coronary artery disease) Heart disease Multiple sclerosis Grandfather Heart disease Uncle Heart disease Aunt No problems noted. Sister Colon cancer Mother Hypertension Surgical History Squamous cell carcinoma History of lumbar fusion History of esophagogastroduodenoscopy (EGD) Status post insertion of spinal cord stimulator History of left heart catheterization (08/17/21) History of colonoscopy Presence of permanent cardiac pacemaker (2013) History of resection of stomach Hx of cholecystectomy History of elbow surgery History of hysterectomy History of appendectomy History of laparotomy history excision neuroendocrine tumor Social History Smoking Status: Former smoker Tobacco: How many years used: 30 how long ago did patient quit smoking: A few months ago second hand exposure: Yes alcohol intake: never substance use type: does not use caffeine: Yes Type: carbonated beverages Number of servings: 1 and coffee Number of servings: 2 what type of physical activity do you participate in: none ivania/lutheran: None seatbelt use: always do you feel safe at home: Yes ROS <EDWIN Mosley - Last Filed: 01/10/24 21:29> ROS ED ROS Narrative Constitutional: Negative for fever, chills, weight loss, weakness Eyes: Negative for vision loss, vision change, double vision ENT: Negative for any sore throat, ear pain, congestion Cardiovascular: Negative for any palpitations. Positive chest pain, tightness Respiratory: Negative for any cough, sputum production, hemoptysis, dyspnea, dyspnea on exertion, orthopnea Gastrointestinal: Negative for any abdominal pain, nausea, vomiting, diarrhea, constipation, blood in stool, blood in vomit : Negative for any urinary frequency, dysuria, retention, blood in urine Muscle skeletal: Negative for any neck pain, back pain Neurological: Negative for any headache, syncope, dizziness Skin: Negative for any rashes, itching, abrasions, lacerations Psychiatric: Negative for any depression, anxiety, stress, suicidal ideation, homicidal ideation Hematologic: Negative for any excessive bruising, easy bleeding EXAM <EDWIN Mosley - Last Filed: 01/10/24 21:29> Physical Exam Narrative Exam Narrative: Vital signs reviewed. Patient is in no obvious distress HEET: Head normocephalic atraumatic, TMs clear bilaterally. Posterior pharynx is clear, moist mucous membranes. Nares clear bilaterally. Neck: Supple with no lymphadenopathy or tenderness. No signs of meningismus. Cardiac: Regular rate and rhythm no murmurs gallops or rubs, equal peripheral pulses bilaterally. Respiratory: Lungs clear to auscultation bilaterally. Positive for left-sided chest tenderness, no crepitus. Abdomen: Soft, nontender, nondistended. No abdominal bruit or pulsatile masses. No hepatosplenomegaly Extremities: No peripheral edema, no signs of gross trauma or deformity. Active full range of motion of all extremities. Neuro: Cranial nerves II through XII intact, no focal neurological deficits. Skin: Clean dry and intact with no rash, purpura, petechiae, vesicles or pustules. Backs/flank: No CVA tenderness, no midline spinal tenderness, no deformity. Psych: Normal mood and affect. No SI, HI or acute psychosis. Const Vital Signs: 01/10/24 16:31 01/10/24 17:31 01/10/24 17:37 Temperature 98.4 F Temperature Source Oral Pulse Rate 67 63 Respiratory Rate 15 16 Respiratory Effort Blood Pressure 135/58 H 111/69 Blood Pressure Mean 83 83 Pulse Ox 96 96 96 Oxygen Delivery Method Room Air Room Air Room Air 01/10/24 18:00 01/10/24 18:30 01/10/24 19:00 Temperature Temperature Source Pulse Rate 61 60 Respiratory Rate 14 18 Respiratory Effort Normal Blood Pressure 131/84 H 134/89 H Blood Pressure Mean 99 104 Pulse Ox 96 95 Oxygen Delivery Method Room Air Room Air 01/10/24 20:00 01/10/24 21:00 Temperature Temperature Source Pulse Rate 66 111 H Respiratory Rate 19 H 13 Respiratory Effort Blood Pressure 100/79 112/51 L Blood Pressure Mean 86 71 Pulse Ox 95 96 Oxygen Delivery Method Room Air <Dr. Crystal Lujan DO - Last Filed: 01/15/24 00:34> Physical Exam Const Vital Signs: 01/10/24 16:31 01/10/24 17:31 01/10/24 17:37 Temperature 98.4 F Temperature Source Oral Pulse Rate 67 63 Respiratory Rate 15 16 Respiratory Effort Blood Pressure 135/58 H 111/69 Blood Pressure Mean 83 83 Pulse Ox 96 96 96 Oxygen Delivery Method Room Air Room Air Room Air 01/10/24 18:00 01/10/24 18:30 01/10/24 19:00 Temperature Temperature Source Pulse Rate 61 60 Respiratory Rate 14 18 Respiratory Effort Normal Blood Pressure 131/84 H 134/89 H Blood Pressure Mean 99 104 Pulse Ox 96 95 Oxygen Delivery Method Room Air Room Air 01/10/24 20:00 01/10/24 21:00 Temperature Temperature Source Pulse Rate 66 111 H Respiratory Rate 19 H 13 Respiratory Effort Blood Pressure 100/79 112/51 L Blood Pressure Mean 86 71 Pulse Ox 95 96 Oxygen Delivery Method Room Air MDM <EDWIN Mosley - Last Filed: 01/10/24 21:29> MDM Lab Data Labs: Laboratory Results - last 24 hr 01/10/24 01/10/24 17:40 20:00 WBC 12.2 H RBC 4.36 Hgb 12.7 Hct 38.8 MCV 89.0 MCH 29.1 MCHC 32.7 RDW Std Deviation 44.2 H RDW Coeff of Ross 13.7 Plt Count 281 MPV 9.7 Immature Gran % (Auto) 0.800 Neut % (Auto) 57.6 Lymph % (Auto) 33.7 Summit % (Auto) 5.2 Eos % (Auto) 2.2 Baso % (Auto) 0.5 Absolute Neuts (auto) 7.0 Absolute Lymphs (auto) 4.09 Nucleated RBC % 0 Sodium 139 Potassium 3.7 Chloride 106 Carbon Dioxide 26.0 Anion Gap 6 BUN 22 H Creatinine 1.40 H Estim Creat Clear Calc 49.39 Est GFR (MDRD) Af Amer 50 L Est GFR (MDRD) Non-Af 41 L BUN/Creatinine Ratio 15.7 Glucose 221 H Calcium 9.2 Troponin I High Sens 4 6 B-Natriuretic Peptide 39.7 Radiography Diagnostic Testing: Clinical Impression(s) from Imaging Studies Ribs w/Chest X-Ray 01/10/24 18:40 IMPRESSION: RIBS: Normal x-ray examination of the ribs. CHEST: No acute cardiopulmonary pathology. Electronically Signed: Mainor Trujillo MD at 19:37 EDT , EKG Normal sinus rhythm: Attestation: I personally reviewed and interpreted this EKG as follows: Interpretation: Sinus Rhythm Comments: EKG shows normal sinus rhythm, rate of 67 bpm, NV interval 184 ms, QRS duration 86 ms, no acute ST elevation, no acute infarct noted. Treatment and Re-Evaluation :: Differential diagnosis includes however is not limited to: ACS, TX, rib fracture, rib contusion, acute on chronic pain, community-acquired pneumonia Patient appears generally well, vital signs are stable, patient is nontoxic-appearing. Presenting to the emergency department with complaints of midsternal chest pain through to her back has been ongoing for the last year. Patient will receive a chest pain workup including 2 troponins, rib x-rays which will also include chest x-ray. Other laboratory values. All radiologic examinations were read, reviewed by the emergency department attending. From these reads, a plan of care will be put in place. Patient did require 4 morphine, she did have some improvement. Patient CBC shows slight leukocytosis with a white blood count of 12.2, patient's creatinine is 1.4, slightly elevated, patient's baseline is around 1.3-1.4. Patient is also troponin was 4, repeat was 6 this is negative. Patient's BNP was negative. Chest x-ray as well as the rib series was negative for any acute process. At this time, patient was given 1 Percocet, patient will continue following up outpatient. There is no evidence of any ACS or TX. Patient is agreeable with this plan and will stable for discharge. <Dr. Crystal Lujan, DO - Last Filed: 01/15/24 00:34> [facility] Lab Data Attestation: I reviewed the patient's lab results. Labs: Laboratory Results - last 24 hr 01/10/24 01/10/24 17:40 20:00 WBC 12.2 H RBC 4.36 Hgb 12.7 Hct 38.8 MCV 89.0 MCH 29.1 MCHC 32.7 RDW Std Deviation 44.2 H RDW Coeff of Ross 13.7 Plt Count 281 MPV 9.7 Immature Gran % (Auto) 0.800 Neut % (Auto) 57.6 Lymph % (Auto) 33.7 Summit % (Auto) 5.2 Eos % (Auto) 2.2 Baso % (Auto) 0.5 Absolute Neuts (auto) 7.0 Absolute Lymphs (auto) 4.09 Nucleated RBC % 0 Sodium 139 Potassium 3.7 Chloride 106 Carbon Dioxide 26.0 Anion Gap 6 BUN 22 H Creatinine 1.40 H Estim Creat Clear Calc 49.39 Est GFR (MDRD) Af Amer 50 L Est GFR (MDRD) Non-Af 41 L BUN/Creatinine Ratio 15.7 Glucose 221 H Calcium 9.2 Troponin I High Sens 4 6 B-Natriuretic Peptide 39.7 Radiography Diagnostic Testing: Clinical Impression(s) from Imaging Studies Ribs w/Chest X-Ray 01/10/24 18:40 IMPRESSION: RIBS: Normal x-ray examination of the ribs. CHEST: No acute cardiopulmonary pathology. Electronically Signed: Mainor Trujillo MD at 19:37 EDT , Treatment and Re-Evaluation :: Differential diagnosis includes however is not limited to: ACS, TX, rib fracture, rib contusion, acute on chronic pain, community-acquired pneumonia Patient appears generally well, vital signs are stable, patient is nontoxic-appearing. Presenting to the emergency department with complaints of midsternal chest pain through to her back has been ongoing for the last year. Patient will receive a chest pain workup including 2 troponins, rib x-rays which will also include chest x-ray. Other laboratory values. All radiologic examinations were read, reviewed by the emergency department attending. From these reads, a plan of care will be put in place. Patient did require 4 morphine, she did have some improvement. Patient CBC shows slight leukocytosis with a white blood count of 12.2, patient's creatinine is 1.4, slightly elevated, patient's baseline is around 1.3-1.4. Patient is also troponin was 4, repeat was 6 this is negative. Patient's BNP was negative. Chest x-ray as well as the rib series was negative for any acute process. At this time, patient was given 1 Percocet, patient will continue following up outpatient. There is no evidence of any ACS or TX. Patient is agreeable with this plan and will stable for discharge. I have personally performed a face to face assessment of the patient and have reviewed the MACK Note. I performed a substantive portion of the visit including all aspects of the following. My gonzalez findings include: History is patient 58-year-old female with history of sick sinus syndrome status post pacemaker placement, chronic pain, debility, hypertension, coronary artery disease, ELOY and COPD presenting for chest pain rating to her back. This seems to be more of her chronic pain. In addition she is complain of left-sided chest pain after striking her chest on a door. Patient is given 1 dose of morphine in the emergency room for her pain. Cardiac workup is obtained which is largely normal. Rib series x-ray does not show any acute process. Low suspicion for acute traumatic injury based on Meggs of injury as well as physical exam. Patient linda hemodynamically stable in the emergency room. Given largely negative workup will be discharged home. Patient is given 1 Percocet for pain control but this time I do not think she requires further prescription. Suspect she has rib contusion which is causing her pain on top of her chronic chest pain. Patient be discharged back to her assisted living facility. Discharge Plan Triage Chief Complaint: Chest Pain ED Midlevel Provider: Jcarlos Garcia ED Provider: Crystal Lujan Dx/Rx/DC Orders Clinical Impression: Contusion of rib, Chest pain Instructions: ED Chest Pain, Uncertain Cause, ED Bruise, Rib Prescriptions: No Action duloxetine 60 mg capsule,delayed release(DR/EC) 120 mg PO DAILY Rx Instructions: rx by pallative care gabapentin 300 mg capsule 300 mg PO TID Patient Comments: TAKE 1 CAPSULE BY MOUTH THREE TIMES A DAY trazodone 150 mg tablet 150 mg PO QHS Rx Instructions: Take with 50 mg tablet to = 200 mg qhs potassium chloride 20 mEq tablet,ER particles/crystals 20 meq PO DAILY clonazepam 0.5 mg tablet 0.5 mg PO TID trazodone 50 mg tablet 50 mg PO QHS Rx Instructions: Take with 150 mg tablet to = 200 mg qhs buspirone 10 mg tablet 10 mg PO TID rosuvastatin 20 mg tablet 20 mg PO QHS Biofreeze (menthol) 4 % gel 1 applic topical TID PRN (Reason: pain) naloxone 4 mg/actuation spray,non-aerosol 4 mg intranasal ONCE PRN (Reason: opioid overdose) Rx Instructions: spray 1 dose into ONE nostril; alternate nostrils w each dose until help arrives magnesium oxide 400 mg (241.3 mg magnesium) tablet 400 mg PO DAILY omeprazole 40 mg capsule,delayed release(DR/EC) 40 mg PO DAILY Rx Instructions: TAKE ONE CAPSULE BY MOUTH DAILY FOR STOMACH levothyroxine 25 mcg tablet 25 mcg PO DAILY Rx Instructions: TAKE ONE TABLET BY MOUTH DAILY FOR THYROID hydrochlorothiazide 12.5 mg tablet 12.5 mg PO DAILY Rx Instructions: TAKE 1 TABLET BY MOUTH EVERY DAY oxycodone-acetaminophen 5-325 mg tablet 1 tab PO Q6H PRN (Reason: pain) 3 Days Qty: 5 0RF ondansetron 8 mg tablet,disintegrating 8 mg PO Q6H PRN PRN (Reason: nausea and vomiting) Rx Instructions: TAKE ONE TABLET BY MOUTH EVERY 6 HOURS NEEDED FOR NAUSEA AND VOMITING isosorbide mononitrate 60 mg tablet extended release 24 hr 60 mg PO QAM Qty: 90 3RF (DME) Ultra-Light Rollator Misc See Rx Instructions .Route Qty: 1 0RF Rx Instructions: As directed Prolia 60 mg/mL syringe 60 mg subcut [id number] Qty: 1 2RF lisinopril 20 mg tablet 20 mg PO DAILY Qty: 90 1RF metoprolol tartrate 100 mg tablet 100 mg PO BID Qty: 180 1RF Rx Instructions: TAKE 1 TABLET BY MOUTH TWICE A DAY FOR BLOOD PRESSURE/HEART fenofibrate 54 mg tablet 54 mg PO DAILY Qty: 90 1RF sumatriptan succinate [Imitrex] 50 mg tablet See Rx Instructions PO .COMPLEX Qty: 10 3RF Rx Instructions: take 1 tab at onset of headache; if no relief may repeat 1 tab after at least 2 hrs; max = 4 tabs/24 hr PO cyclobenzaprine 10 mg tablet 10 mg PO BID PRN (Reason: muscle spasm) Qty: 180 1RF chlorhexidine gluconate 4 % liquid 1 applic topical .COMPLEX Qty: 118 0RF Rx Instructions: use as body wash night before and morning of pacemaker procedure: apply from neck down, rinse and pat dry. amlodipine 10 mg tablet 10 mg PO QDAY Qty: 90 3RF Primary Care Provider: Charla Wadsworth Referrals: Charla Wadsworth MD [Primary Care Provider] - Activity Restrictions/Additional Instructions: Please continue to follow-up outpatient. Print Language: Welsh Disposition Disposition: Home, Self Care Discharge Date/Time: 01/10/24 22:18
--- NOTE | 2024-01-10 17:37 | EKG12_ITS ---
Test Reason : REPEAT CP Blood Pressure : */* mmHG Vent. Rate : 60 BPM Atrial Rate : 60 BPM P-R Int : 214 ms QRS Dur : 84 ms QT Int : 460 ms P-R-T Axes : 32 68 73 degrees QTcB Int : 460 ms Atrial-paced rhythm with prolonged AV conduction Abnormal ECG Confirmed by CHRIS FLORES MD ([id number]), editorial assistant IOANA PILLAI ([id number]) on 01/13/2024 9:38:29 AM Referred By: MEG Confirmed By: CHRIS FLORES MD
[2024-01-10 17:47] LABS: Absolute Lymphocyte Count 4.09 X10^3/uL (0.83-4.51); Basophil# 0.06 X10^3/uL; Basophil% 0.5 % (0-1); Eosinophil# 0.27 X10^3/uL; Eosinophils% 2.2 % (0-5); Hematocrit 38.8 % (37-47); Hemoglobin 12.7 g/dL (12.0-15.0); Lymphocyte # 4.09 X10^3/ul (0.83-4.51); Lymphocyte % 33.7 % (19-41); Mean Corp Hgb Conc 32.7 g/dL (32-36); Mean Corpuscular Hgb 29.1 pg (27.0-32.0); Mean Platelet Vol. 9.7 fl (6.2-12.0); Monocyte# 0.63 X10^3/uL; Monocyte% 5.2 % (0-10); NRBC Flagged by Analyzer 0 % (0-5); Neutrophil % 57.6 % (47-70); Platelet Count 281 K/mm3 (150-450); RBC Distribution Width CV 13.7 % (11.6-14.6); RBC Distribution Width SD 44.2 fl (35.1-43.9); Red Blood Count 4.36 M/mm3 (4.2-5.4); White Blood Count 12.2 K/mm3 (4.4-11.0)
[2024-01-10 18:05] LABS: BNP,B-Type NATRIURETIC PEPTIDE 39.7 pg/mL (0-100)
[2024-01-10 18:06] LABS: Anion Gap 6 (5-15); BUN 22 mg/dL (7-18); BUN/Creat Ratio 15.7 RATIO (10-20); Calcium,Total 9.2 mg/dL (8.5-10.1); Chloride 106 mmol/L (98-107); EST Glomerular Filtration Rate 41 mL/min (>60); Est Glom Filt Rate - Afr Amer 50 mL/min (>60); Estimated Creatinine Clearance 49.39 ml/min; Glucose 221 mg/dL (74-106); Potassium 3.7 mmol/L (3.5-5.1); Sodium Level 139 mmol/L (136-145); Troponin-I HS (w/2H Reflex) 4 pg/mL (3.0-54.0)
--- NOTE | 2024-01-10 18:40 | RAD_ITS ---
STUDY: X-RAY - UNILATERAL RIBS ( LEFT ) WITH CHEST REASON FOR EXAM: Female, 58 years old. injury TECHNIQUE - RIBS: 3 view(s) of the ribs. TECHNIQUE - CHEST: PA COMPARISON: None. FINDINGS - RIBS: Normal visualized ribs without a demonstrated fracture. FINDINGS - CHEST: The lungs are clear and expanded. There is no demonstrated pleural abnormality. Normal size heart. Normal mediastinum and archana. Normal visualized pulmonary arteries. Normal visualized aortic arch and descending thoracic aorta. Pacer noted on the left with electrodes in satisfactory position. Spinal stimulator noted within the thoracic spinal canal Normal visualized thoracic spine. Normal visualized ribs, clavicles, and shoulders. There is no demonstrated abnormality of the visualized soft tissue structures of the upper abdomen. RAD/Ribs Uni Min 3V w/PA Chest IMPRESSION: RIBS: Normal x-ray examination of the ribs. CHEST: No acute cardiopulmonary pathology. Electronically Signed: Mainor Trujillo MD at 19:37 EDT ,
[2024-01-10 19:44] LABS: Reflex Troponin-HS? (from REC) Y
[2024-01-10] MEDS: Lidocaine 5% Patch 1 PATCH TOPICAL (20:06)
[2024-01-10] MEDS: Morphine 4 MG/ML Syringe IV (20:06)
[2024-01-10] MEDS: Ondansetron 4 MG/2 ML Vial IV (20:06)
[2024-01-10 20:39] LABS: Troponin-I HS 6 pg/mL (3.0-54.0)
[2024-01-10] MEDS: oxyCODONE 5 MG Tablet PO (21:37)
--- NOTE | 2024-01-10 22:07 | ED.RN ---
Updated [facility] on pt's dispo status and visit summary. 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
--- NOTE | 2024-01-10 23:57 | EKG12_ITS ---
Test Reason : CP Blood Pressure : */* mmHG Vent. Rate : 67 BPM Atrial Rate : 67 BPM P-R Int : 184 ms QRS Dur : 86 ms QT Int : 432 ms P-R-T Axes : 27 56 65 degrees QTcB Int : 456 ms Normal sinus rhythm Normal ECG Confirmed by MARK GAUTAM, CHRIS ([id number]), assignment editor IOANA PILLAI ([id number]) on 01/13/2024 9:38:45 AM Referred By: Confirmed By: CHRIS FLORES MD
== END 2024-01-10 22:18 | disposition home or self-care (01) ==
PROVIDERS: Nurse Practitioner; Emergency Provider Emergency Medicine; PCP Internal Medicine; Visit Provider Emergency Medicine
DX: S20.212A Contusion of left front wall of thorax, initial encounter (principal); I11.0 Hypertensive heart disease with heart failure; I50.9 Heart failure, unspecified; J43.9 Emphysema, unspecified; I49.5 Sick sinus syndrome; W22.09XA Striking against other stationary object, initial encounter; Y92.099 Unspecified place in other non-institutional residence as the place of occurrence of the external cause; I25.10 Atherosclerotic heart disease of native coronary artery without angina pectoris; E78.49 Other hyperlipidemia; E78.00 Pure hypercholesterolemia, unspecified; G89.29 Other chronic pain; G47.33 Obstructive sleep apnea (adult) (pediatric); Z79.890 Hormone replacement therapy; Z79.899 Other long term (current) drug therapy; Z87.891 Personal history of nicotine dependence; Z95.810 Presence of automatic (implantable) cardiac defibrillator
CPT/HCPCS: 71101; 80048; 83880; 84484; 85025; 93005; 96374; 96375; 99285; A4216; J2405

== ENCOUNTER → 2024-02-20 | Outpatient (CLI) | payer MEDICARE, MEDICAID, SELFPAY ==
--- NOTE | 2024-02-20 06:46 | CT_ITS ---
STUDY: CT ABDOMEN WITH CONTRAST REASON FOR EXAM: Female, 58 years old. GASTRITIS RADIATION DOSAGE (If Supplied By Facility): CTDIvol = ( 13.75 ) mGy, DLP = ( 786.63 ) mGycm TECHNIQUE: Transaxial images were obtained post I.V. administration of Oral and amp; IV Gastrografin and amp; 100mL Isovue-300, and with oral contrast. Sagittal and coronal images were reconstructed. Individualized dose optimization techniques were used for this CT. COMPARISON: Comparison is made with prior study dated November 12, 2023. FINDINGS: Minimal linear atelectasis in the linear segment of the left upper lobe. Pacemaker device is visualized. There is hepatomegaly with diffuse hepatic enlargement. Mild hepatomegaly. The gallbladder is contracted. Normal spleen. Normal pancreas. Normal bilateral adrenal glands. Normal right kidney. Normal left kidney. Normal visualized stomach. Normal small intestine. Normal colon. The appendix is visualized and appears normal. There is scattered atherosclerotic calcification of the abdominal aorta, without a demonstrated aneurysm. Normal inferior vena cava. Normal retroperitoneum. Normal abdominal wall. Status post screw and maura fixation at the L4-L5 level. CT/Abdomen WITH IV Contrast IMPRESSION: Mild hepatomegaly. Diffuse fatty infiltration of the liver. Status post cholecystectomy. Electronically Signed: Ming Roberts MD at 11:10 [facility] ,
[2024-02-20 08:58] LABS: CREATININE FINGERSTICK 1.3 mg/dL (0.55-1.02)
== END | disposition home or self-care (01) ==
LOC: CT 06:44
PROVIDERS: PCP Internal Medicine; Referring Provider Internal Medicine Gastroenterology; Visit Provider Internal Medicine Gastroenterology
DX: Z01.812 Encounter for preprocedural laboratory examination (principal); K29.70 Gastritis, unspecified, without bleeding
CPT/HCPCS: 74160; Q9967

== ENCOUNTER 2024-04-03 14:52 | Inpatient (IN) | payer MEDICARE, MEDICAID, SELFPAY ==
[2024-04-03] VITALS (13 sets, daily range): BP systolic 114–139; BP diastolic 70–91; PULSE 65–98; RESP 12–24; TEMP 36.6–37.1; O2SAT 92–97; BMI 43.2; BMI 40.9
--- NOTE | 2024-04-03 15:45 | EKG12_ITS ---
Test Reason : SOB Blood Pressure : */* mmHG Vent. Rate : 63 BPM Atrial Rate : 63 BPM P-R Int : 200 ms QRS Dur : 82 ms QT Int : 438 ms P-R-T Axes : 40 60 58 degrees QTcB Int : 448 ms Normal sinus rhythm Normal ECG Confirmed by CHERI GAUTAM, NURA ([id number]), news assignment editor IOANA PILLAI ([id number]) on 04/07/2024 6:06:06 AM Referred By: Confirmed By: NURA ALONZO MD
[2024-04-03 15:54] LABS: Absolute Lymphocyte Count 2.94 X10^3/uL (0.83-4.51); Absolute Neutrophil Count 3.9 X10^3/uL (2.0-7.7); Basophil# 0.04 X10^3/uL; Basophil% 0.5 % (0-1); Eosinophil# 0.26 X10^3/uL; Eosinophils% 3.3 % (0-5); Hematocrit 42.3 % (37-47); Hemoglobin 13.5 g/dL (12.0-15.0); Lymphocyte # 2.94 X10^3/ul (0.83-4.51); Lymphocyte % 37.8 % (19-41); Mean Corp Hgb Conc 31.9 g/dL (32-36); Mean Corpuscular Hgb 28.3 pg (27.0-32.0); Mean Corpuscular Volume 88.7 fL (81-99); Mean Platelet Vol. 9.9 fl (6.2-12.0); Monocyte# 0.62 X10^3/uL; NRBC Flagged by Analyzer 0 % (0-5); Neutrophil # 3.85 X10^3/uL (2.7-7.7); Neutrophil % 49.5 % (47-70); Platelet Count 211 K/mm3 (150-450); RBC Distribution Width CV 13.9 % (11.6-14.6); RBC Distribution Width SD 45.1 fl (35.1-43.9); Red Blood Count 4.77 M/mm3 (4.2-5.4); White Blood Count 7.8 K/mm3 (4.4-11.0)
[2024-04-03] MEDS: Ipratropium/Albuterol Sulfate 3 ML AMPUL.NEB INHALATION ×2 (15:57→20:10)
[2024-04-03] MEDS: Albuterol 2.5 MG/3 ML VIAL.NEB. 5 MG INHALATION (15:57)
[2024-04-03] MEDS: MethylPREDNISolone 125 MG/2 ML Vial IV (15:59)
[2024-04-03 16:07] LABS: Anion Gap 5 (5-15); BUN 17 mg/dL (7-18); BUN/Creat Ratio 12.9 RATIO (10-20); Calcium,Total 9.3 mg/dL (8.5-10.1); Chloride 105 mmol/L (98-107); Creatinine, Serum 1.32 mg/dL (0.55-1.02); EST Glomerular Filtration Rate 44 mL/min (>60); Est Glom Filt Rate - Afr Amer 53 mL/min (>60); Estimated Creatinine Clearance 53.55 ml/min; Glucose 155 mg/dL (74-106); Potassium 4.4 mmol/L (3.5-5.1); Sodium Level 137 mmol/L (136-145)
--- NOTE | 2024-04-03 16:08 | EDS_ITS ---
HPI <EDWIN Mosley - Last Filed: 04/03/24 18:00> History of Present Illness Chief Complaint: Shortness of Breath Narrative Narrative: Patient is a 58-year-old female with history of encephalopathy, COPD chronic pain, hypothyroidism who presents to the emergency department with complaints of 1.5 weeks of worsening cough, congestion. Patient states she feels more short of breath. She denies any specific fever or chills, does have yellow sputum. Here for evaluation. PFS <EDWIN Mosley - Last Filed: 04/03/24 18:00> [facility] Medical History (Updated 04/03/24 @ 18:54 by Staci Pinzon) Anxiety Asthma Pacemaker Hypertension UTI (urinary tract infection) Pacemaker battery depletion History of tobacco use Hyperkalemia Knee sprain Post-menopausal Cancer Arthritis Walker as ambulation aid Uses wheelchair High cholesterol Back pain Injury of back Migraine headache Dietary restriction History of IBS Smoker CPAP (continuous positive airway pressure) dependence COPD (chronic obstructive pulmonary disease) Emphysema, unspecified Leg cramps History of pain when walking History of edema History of echocardiogram History of stress test Cardiology follow-up encounter History of CHF (congestive heart failure) Chest pain Osteopenia (~10/2022) Lumbar radiculopathy Debility Leukocytosis Health care maintenance Pain of left thumb Polypharmacy Encephalopathy CHI (closed head injury) Bacteria in urine Health care maintenance Muscle spasm Tobacco use disorder, continuous Encounter for screening for malignant neoplasm of lung in current smoker with 30 pack year history or greater Osteoarthritis Greater trochanteric bursitis of left hip Infected dental carries Atherosclerotic heart disease of [place] coronary artery without angina pectoris Monomorphic ventricular tachycardia Hyperlipidemia Intermittent palpitations Diarrhea ELOY (obstructive sleep apnea) COPD (chronic obstructive pulmonary disease) Polycythemia Primary malignant neuroendocrine tumor of stomach Sacral contusion Low back strain Anxiety and depression Hypothyroidism GERD (gastroesophageal reflux disease) PTSD (post-traumatic stress disorder) Vitamin D deficiency Neuropathy Anemia Essential (primary) hypertension Neuroendocrine neoplasm of stomach Sick sinus syndrome Sinus pause Chronic lower back pain Chronic pain syndrome Tobacco dependence syndrome Familial combined hyperlipidemia Obesity Home Medications ?Medication ?Instructions ?Recorded ?Last Taken ?Type duloxetine 60 mg capsule,delayed 120 mg PO DAILY 05/16/22 04/03/24 History release gabapentin 300 mg capsule 300 mg PO TID 05/16/22 04/03/24 History isosorbide mononitrate 60 mg 60 mg PO QAM #90 tabs 06/13/22 04/03/24 Rx tablet,extended release 24 hr walker (Ultra-Light Rollator misc) #1 ea 10/17/22 Unknown Rx potassium chloride 20 mEq 20 meq PO DAILY 01/30/23 04/03/24 History tablet,extended release(part/cryst) denosumab 60 mg/mL subcutaneous 60 mg subcut [id number] #1 mL 02/15/23 09/09/23 Rx syringe (Prolia) lisinopril 20 mg tablet 20 mg PO DAILY #90 tabs 02/20/23 04/03/24 Rx metoprolol tartrate 100 mg tablet 100 mg PO BID blood pressure, 04/26/23 04/03/24 Rx heart #180 tabs levothyroxine 25 mcg tablet 25 mcg PO DAILY 07/25/23 04/03/24 History magnesium oxide 400 mg (241.3 mg 400 mg PO DAILY 07/25/23 04/03/24 History magnesium) tablet omeprazole 40 mg capsule,delayed 40 mg PO DAILY 07/25/23 04/03/24 History release fenofibrate 54 mg tablet 54 mg PO DAILY #90 tabs 07/31/23 04/03/24 Rx oxycodone-acetaminophen 5 mg-325 1 tab PO Q6H PRN pain 3 days #5 08/01/23 04/03/24 Rx mg tablet tabs sumatriptan succinate 50 mg tablet See Rx Instructions PO .COMPLEX 08/09/23 Unknown Rx (Imitrex) #10 tabs naloxone 4 mg/actuation nasal spray 4 mg intranasal ONCE PRN opioid 09/09/23 Unknown History overdose ondansetron 8 mg disintegrating 8 mg PO Q6H PRN PRN nausea and 09/09/23 04/03/24 History tablet vomiting rosuvastatin 20 mg tablet 20 mg PO QHS 09/09/23 04/02/24 History trazodone 150 mg tablet 150 mg PO QHS 09/09/23 04/02/24 History trazodone 50 mg tablet 50 mg PO QHS 09/09/23 04/02/24 History cyclobenzaprine 10 mg tablet 10 mg PO BID PRN muscle spasm #180 10/29/23 04/03/24 Rx tabs amlodipine 5 mg tablet 5 mg PO BID #60 tabs 02/05/24 04/03/24 Rx buspirone 15 mg tablet 15 mg PO BID 04/03/24 04/03/24 History buspirone 5 mg tablet 5 mg PO BID 04/03/24 Unknown History clonazepam 1 mg tablet 0.5 mg PO 4XD 04/03/24 04/03/24 History Allergy/AdvReac Type Severity Reaction Status Date / Time latex Allergy Intermediate skin Verified 04/03/24 14:59 irritation aspirin AdvReac Severe Nausea/Vom/ Verified 04/03/24 14:59 Diarrhea erythromycin base AdvReac Severe Vomiting,di Verified 04/03/24 14:59 (Erythromycin Base) arrhea NSAIDS (Non-Steroidal AdvReac Severe Vomiting,di Verified 04/03/24 14:59 Anti-Inflamma arrhea Family History Daughter Multiple sclerosis Father CAD (coronary artery disease) Heart disease Multiple sclerosis Grandfather Heart disease Uncle Heart disease Aunt No problems noted. Sister Colon cancer Mother Hypertension Surgical History Squamous cell carcinoma History of lumbar fusion History of esophagogastroduodenoscopy (EGD) Status post insertion of spinal cord stimulator History of left heart catheterization (08/17/21) History of colonoscopy Presence of permanent cardiac pacemaker (2013) History of resection of stomach Hx of cholecystectomy History of elbow surgery History of hysterectomy History of appendectomy History of laparotomy history excision neuroendocrine tumor Social History Smoking Status: Former smoker Tobacco: How many years used: 30 how long ago did patient quit smoking: A few months ago second hand exposure: Yes alcohol intake: never substance use type: does not use caffeine: Yes Type: carbonated beverages Number of servings: 1 and coffee Number of servings: 2 what type of physical activity do you participate in: none ivania/mandaeism: None seatbelt use: always do you feel safe at home: Yes ROS <EDWIN Mosley - Last Filed: 04/03/24 18:00> ROS ED ROS Narrative Constitutional: Negative for fever,weight loss, weakness. Positive for chills Eyes: Negative for vision loss, vision change, double vision ENT: Negative for any sore throat, ear pain, congestion Cardiovascular: Negative for any chest pain, tightness, palpitations Respiratory: Negative for any hemoptysis, dyspnea on exertion, orthopnea. Positive for cough, dyspnea, sputum production Gastrointestinal: Negative for any abdominal pain, nausea, vomiting, diarrhea, constipation, blood in stool, blood in vomit : Negative for any urinary frequency, dysuria, retention, blood in urine Muscle skeletal: Negative for any neck pain, back pain. Positive for myalgias Neurological: Negative for any headache, syncope, dizziness Skin: Negative for any rashes, itching, abrasions, lacerations Psychiatric: Negative for any depression, anxiety, stress, suicidal ideation, homicidal ideation Hematologic: Negative for any excessive bruising, easy bleeding EXAM <EDWIN Mosley - Last Filed: 04/03/24 18:00> Physical Exam Narrative Exam Narrative: Vital signs reviewed. HEET: Head normocephalic atraumatic, TMs clear bilaterally. Posterior pharynx is clear, moist mucous membranes. Nares clear bilaterally. Neck: Supple with no lymphadenopathy or tenderness. No signs of meningismus. Cardiac: Regular rate and rhythm no murmurs gallops or rubs, equal peripheral pulses bilaterally. Respiratory: Patient does have expiratory wheezes throughout pulmonary exam, decreased lung sounds at the bases. No chest tenderness. Abdomen: Soft, nontender, nondistended. No abdominal bruit or pulsatile masses. No hepatosplenomegaly Extremities: No peripheral edema, no signs of gross trauma or deformity. Active full range of motion of all extremities. Neuro: Cranial nerves II through XII intact, no focal neurological deficits. Skin: Clean dry and intact with no rash, purpura, petechiae, vesicles or pustules. Backs/flank: No CVA tenderness, no midline spinal tenderness, no deformity. Psych: Normal mood and affect. No SI, HI or acute psychosis. Const Vital Signs: 04/03/24 14:54 04/03/24 14:57 04/03/24 15:51 Temperature 98.7 F 98.7 F Temperature Source Oral Oral Pulse Rate 65 67 Respiratory Rate 24 H 24 H Respiratory Effort Respiratory Depth Respiratory Pattern Blood Pressure 114/91 H 114/91 H Blood Pressure Mean 98 98 Pulse Ox 97 96 96 Oxygen Delivery Method Room Air Room Air Room Air 04/03/24 15:57 04/03/24 16:12 04/03/24 16:53 Temperature 98 F Temperature Source Temporal Pulse Rate 98 78 Respiratory Rate 18 Respiratory Effort Normal Short of Breath Respiratory Depth Normal Respiratory Pattern Normal Blood Pressure 139/81 H 119/81 H Blood Pressure Mean 100 93 Pulse Ox 93 96 Oxygen Delivery Method Room Air Room Air <Dr. Crystal Lujan DO - Last Filed: 04/05/24 05:15> Physical Exam Const Vital Signs: 04/03/24 14:54 04/03/24 14:57 04/03/24 15:51 Temperature 98.7 F 98.7 F Temperature Source Oral Oral Pulse Rate 65 67 Respiratory Rate 24 H 24 H Respiratory Effort Respiratory Depth Respiratory Pattern Blood Pressure 114/91 H 114/91 H Blood Pressure Mean 98 98 Pulse Ox 97 96 96 Oxygen Delivery Method Room Air Room Air Room Air 04/03/24 15:57 04/03/24 16:12 04/03/24 16:53 Temperature 98 F Temperature Source Temporal Pulse Rate 98 78 Respiratory Rate 18 Respiratory Effort Normal Short of Breath Respiratory Depth Normal Respiratory Pattern Normal Blood Pressure 139/81 H 119/81 H Blood Pressure Mean 100 93 Pulse Ox 93 96 Oxygen Delivery Method Room Air Room Air [facility] <EDWIN Mosley - Last Filed: 04/03/24 18:00> [facility] Lab Data Labs: Laboratory Results - last 24 hr 04/03/24 15:00 WBC 7.8 RBC 4.77 Hgb 13.5 Hct 42.3 MCV 88.7 MCH 28.3 MCHC 31.9 L RDW Std Deviation 45.1 H RDW Coeff of Ross 13.9 Plt Count 211 MPV 9.9 Immature Gran % (Auto) 0.900 Neut % (Auto) 49.5 Lymph % (Auto) 37.8 [place] % (Auto) 8.0 Eos % (Auto) 3.3 Baso % (Auto) 0.5 Absolute Neuts (auto) 3.9 Absolute Lymphs (auto) 2.94 Nucleated RBC % 0 Sodium 137 Potassium 4.4 Chloride 105 Carbon Dioxide 27.0 Anion Gap 5 BUN 17 Creatinine 1.32 H Estim Creat Clear Calc 53.55 Est GFR (MDRD) Af Amer 53 L Est GFR (MDRD) Non-Af 44 L BUN/Creatinine Ratio 12.9 Glucose 155 H Calcium 9.3 Radiography Diagnostic Testing: Clinical Impression(s) from Imaging Studies Chest X-Ray 04/03/24 16:12 IMPRESSION: No acute disease Electronically Signed: Kirill Georges MD at 16:40 EST , EKG EKG shows normal sinus rhythm: Attestation: I personally reviewed and interpreted this EKG as follows: Interpretation: Sinus Rhythm Comments: Sinus rhythm, rate of 63 bpm, MO interval 200 ms, QRS duration 82 ms, no acute ST elevation, no acute infarct noted Treatment and Re-Evaluation :: Differential diagnosis includes however is not limited to: COVID-19, influenza, RSV, community-acquired pneumonia, PE, COPD exacerbation Patient appears generally well, vital signs are stable, patient is nontoxic- appearing. Patient does have expiratory wheezes and complains of shortness of breath it has been getting worse over the last 1.5 weeks. Patient will receive a respiratory workup including COVID-19, influenza, RSV as well as two-view chest x-ray. Breathing treatments will be completed, will need to be reevaluated. Basic laboratory values drawn, all radiologic examinations were read, reviewed by the emergency department attending. From these reads, a plan of care will be put in place. Chest x-ray shows no acute disease. Laboratory values showed no leukocytosis, CBC was unremarkable, chemistry showed a creatinine 1.3 this is baseline. Glucose 155. Patient's COVID-19 influenza RSV was negative. Patient was responding well to breathing treatments, there was still some wheezing. Patient was trying to get up to perform an ambulatory pulse ox test, when she sat up, she immediately dropped to 88%, was tachypneic. Patient was then laying back down placed on oxygen. At this time, patient will need to be admitted to hospital for COPD exacerbation. Patient be covered with oral doxycycline. Spoke with hospitalist who will admit the patient. <Dr. Crystal Lujan, DO - Last Filed: 04/05/24 05:15> [facility] Lab Data Attestation: I reviewed the patient's lab results. Labs: Laboratory Results - last 24 hr 04/03/24 15:00 WBC 7.8 RBC 4.77 Hgb 13.5 Hct 42.3 MCV 88.7 MCH 28.3 MCHC 31.9 L RDW Std Deviation 45.1 H RDW Coeff of Ross 13.9 Plt Count 211 MPV 9.9 Immature Gran % (Auto) 0.900 Neut % (Auto) 49.5 Lymph % (Auto) 37.8 [place] % (Auto) 8.0 Eos % (Auto) 3.3 Baso % (Auto) 0.5 Absolute Neuts (auto) 3.9 Absolute Lymphs (auto) 2.94 Nucleated RBC % 0 Sodium 137 Potassium 4.4 Chloride 105 Carbon Dioxide 27.0 Anion Gap 5 BUN 17 Creatinine 1.32 H Estim Creat Clear Calc 53.55 Est GFR (MDRD) Af Amer 53 L Est GFR (MDRD) Non-Af 44 L BUN/Creatinine Ratio 12.9 Glucose 155 H Calcium 9.3 Radiography Diagnostic Testing: Clinical Impression(s) from Imaging Studies Chest X-Ray 04/03/24 16:12 IMPRESSION: No acute disease Electronically Signed: Kriill Georges MD at 16:40 EST , Treatment and Re-Evaluation :: Differential diagnosis includes however is not limited to: COVID-19, influenza, RSV, community-acquired pneumonia, PE, COPD exacerbation Patient appears generally well, vital signs are stable, patient is nontoxic- appearing. Patient does have expiratory wheezes and complains of shortness of breath it has been getting worse over the last 1.5 weeks. Patient will receive a respiratory workup including COVID-19, influenza, RSV as well as two-view chest x-ray. Breathing treatments will be completed, will need to be reeval uated. Basic laboratory values drawn, all radiologic examinations were read, reviewed by the emergency department attending. From these reads, a plan of care will be put in place. Chest x-ray shows no acute disease. Laboratory values showed no leukocytosis, CBC was unremarkable, chemistry showed a creatinine 1.3 this is baseline. Glucose 155. Patient's COVID-19 influenza RSV was negative. Patient was responding well to breathing treatments, there was still some wheezing. Patient was trying to get up to perform an ambulatory pulse ox test, when she sat up, she immediately dropped to 88%, was tachypneic. Patient was then laying back down placed on oxygen. At this time, patient will need to be admitted to hospital for COPD exacerbation. Patient be covered with oral doxycycline. Sp selene with hospitalist who will admit the patient. I have personally performed a face to face assessment of the patient and have reviewed the MACK Note. I performed a substantive portion of the visit including all aspects of the following. My gonzalez findings include: History is Patient is a 58-year-old female with history of COPD presenting with worsening cough, congestion and shortness of breath. She denies any fever or chills but has had some productive cough. She lives in assisted living. She does not wear oxygen at baseline. Patient has significantly coarse breath sounds with expiratory wheezing present. She is given aerosols with some improvement. She is started on steroids. Patient is negative for flu, COVID and RSV. Patient is ambulated however and drops immediately to 88% and becomes quite symptomatic. Will admit further treatment for COPD exacerbation given her acute hypoxia. Is started on doxycycline in the emergency room because of her underlying COPD. Patient is agreeable with this plan of care. Case discussed with hospitalist, Dr. Winn. Other additions or changes: [None] Discharge Plan Dx/Rx/DC Orders Clinical Impression: Acute exacerbation of chronic obstructive pulmonary disease, Hypoxia Disposition Disposition: Acute Care Hospital [facility] Discharge Date/Time: 04/03/24 18:38
--- NOTE | 2024-04-03 16:12 | RAD_ITS ---
STUDY: X-RAY CHEST REASON FOR EXAM: Female, 58 years old. cough TECHNIQUE: Frontal and lateral views of the chest. COMPARISON: CT chest December 04, 2023. Chest x-ray same day. FINDINGS: Bipolar pacer left chest unchanged. Intraspinal electrodes unchanged. The lungs are clear and expanded. There is no demonstrated pleural abnormality. Normal size heart. Normal mediastinum and archana. Normal visualized pulmonary arteries. Normal visualized aortic arch and descending thoracic aorta. Normal visualized thoracic spine. Normal visualized ribs, clavicles, and shoulders. There is no demonstrated abnormality of the visualized soft tissue structures of the upper abdomen. RAD/Chest PA and Lateral IMPRESSION: No acute disease Electronically Signed: Kirill Georges MD at 16:40 EST ,
[2024-04-03] MEDS: oxyCODONE 5 MG Tablet PO (16:26)
[2024-04-03] MEDS: amLODIPine 5 MG Tablet PO ×2 (16:26→21:02)
[2024-04-03] MEDS: Doxycycline 100 MG CAPSULE PO (18:09)
--- NOTE | 2024-04-03 18:09 | HP.PCM.HOS_ITS ---
HPI - General General Date of Admission: 04/03/24 Date of Service: 04/03/24 Chief Complaint: Increasing SOB HPI Narrative RAMSES BRADSHAW, is a 58-year-old female history of COPD, hypothyroidism, hypertension, ELOY, tobacco use, GERD, depression and anxiety who presented [facility] ED 04/03/2024 with 1-1/2 weeks of increasing cough and congestion as well as increasing shortness of breath. In the ED CBC and BMP unremarkable the patient slightly tachypneic on arrival but otherwise vitally stable. Chest x-ray within normal limits. Patient given DuoNebs and steroids and she was set up to see if they would be able to ambulate her for possible DC home however just sitting up patient dropped to 88% on room air so hospitalist contacted for admission for hypoxia secondary COPD exacerbation. Patient evaluated at bedside and reports increasing cough with yellow sputum and shortness of breath over the past week and a half. Reports weeks of some left- sided chest wall pain that is quick and sharp and comes and goes and is reproducible when you palpate over certain area on the left lateral chest wall and she reports this is unchanged today. Does report that she has a history of ELOY but threw away her CPAP in December after it broke and has not been using anything since. Denies any fevers or chills, no nausea or vomiting, no changes in bowels or peripheral swelling, no abdominal pain. [facility] Medical History (Updated 04/03/24 @ 18:00 by EDWIN Mosley) Anemia Anxiety and depression Arthritis Atherosclerotic heart disease of [place] coronary artery without angina pectoris Back pain Bacteria in urine Cancer Cardiology follow-up encounter Chest pain CHI (closed head injury) Chronic lower back pain Chronic pain syndrome COPD (chronic obstructive pulmonary disease) COPD (chronic obstructive pulmonary disease) CPAP (continuous positive airway pressure) dependence Debility Diarrhea Dietary restriction Emphysema, unspecified Encephalopathy Encounter for screening for malignant neoplasm of lung in current smoker with 30 pack year history or greater Essential (primary) hypertension Familial combined hyperlipidemia GERD (gastroesophageal reflux disease) Greater trochanteric bursitis of left hip Health care maintenance Health care maintenance High cholesterol History of CHF (congestive heart failure) History of echocardiogram History of edema History of IBS History of pain when walking History of stress test History of tobacco use Hyperkalemia Hyperlipidemia Hypothyroidism Infected dental carries Injury of back Intermittent palpitations Knee sprain Leg cramps Leukocytosis Low back strain Lumbar radiculopathy Migraine headache Monomorphic ventricular tachycardia Muscle spasm Neuroendocrine neoplasm of stomach Neuropathy Obesity ELOY (obstructive sleep apnea) Osteoarthritis Osteopenia (~10/2022) Pacemaker battery depletion Pain of left thumb Polycythemia Polypharmacy Post-menopausal Primary malignant neuroendocrine tumor of stomach PTSD (post-traumatic stress disorder) Sacral contusion Sick sinus syndrome Sinus pause Smoker Tobacco dependence syndrome Tobacco use disorder, continuous Uses wheelchair UTI (urinary tract infection) Vitamin D deficiency Walker as ambulation aid Home Medications ?Medication ?Instructions ?Recorded ?Last Taken ?Type duloxetine 60 mg capsule,delayed 120 mg PO DAILY 05/16/22 04/03/24 History release gabapentin 300 mg capsule 300 mg PO TID 05/16/22 04/03/24 History isosorbide mononitrate 60 mg 60 mg PO QAM #90 tabs 06/13/22 04/03/24 Rx tablet,extended release 24 hr walker (Ultra-Light Rollator misc) #1 ea 10/17/22 Unknown Rx potassium chloride 20 mEq 20 meq PO DAILY 01/30/23 04/03/24 History tablet,extended release(part/cryst) denosumab 60 mg/mL subcutaneous 60 mg subcut [id number] #1 mL 02/15/23 09/09/23 Rx syringe (Prolia) lisinopril 20 mg tablet 20 mg PO DAILY #90 tabs 02/20/23 04/03/24 Rx metoprolol tartrate 100 mg tablet 100 mg PO BID blood pressure, 04/26/23 04/03/24 Rx heart #180 tabs levothyroxine 25 mcg tablet 25 mcg PO DAILY 07/25/23 04/03/24 History magnesium oxide 400 mg (241.3 mg 400 mg PO DAILY 07/25/23 04/03/24 History magnesium) tablet omeprazole 40 mg capsule,delayed 40 mg PO DAILY 07/25/23 04/03/24 History release fenofibrate 54 mg tablet 54 mg PO DAILY #90 tabs 07/31/23 04/03/24 Rx oxycodone-acetaminophen 5 mg-325 1 tab PO Q6H PRN pain 3 days #5 08/01/23 04/03/24 Rx mg tablet tabs sumatriptan succinate 50 mg tablet See Rx Instructions PO .COMPLEX 08/09/23 Unknown Rx (Imitrex) #10 tabs naloxone 4 mg/actuation nasal spray 4 mg intranasal ONCE PRN opioid 09/09/23 Unknown History overdose ondansetron 8 mg disintegrating 8 mg PO Q6H PRN PRN nausea and 09/09/23 04/03/24 History tablet vomiting rosuvastatin 20 mg tablet 20 mg PO QHS 09/09/23 04/02/24 History trazodone 150 mg tablet 150 mg PO QHS 09/09/23 04/02/24 History trazodone 50 mg tablet 50 mg PO QHS 09/09/23 04/02/24 History cyclobenzaprine 10 mg tablet 10 mg PO BID PRN muscle spasm #180 10/29/23 04/03/24 Rx tabs amlodipine 5 mg tablet 5 mg PO BID #60 tabs 02/05/24 04/03/24 Rx buspirone 15 mg tablet 15 mg PO BID 04/03/24 04/03/24 History buspirone 5 mg tablet 5 mg PO BID 04/03/24 Unknown History clonazepam 1 mg tablet 0.5 mg PO 4XD 04/03/24 04/03/24 History Allergy/AdvReac Type Severity Reaction Status Date / Time latex Allergy Intermediate skin Verified 04/03/24 14:59 irritation aspirin AdvReac Severe Nausea/Vom/ Verified 04/03/24 14:59 Diarrhea erythromycin base AdvReac Severe Vomiting,di Verified 04/03/24 14:59 (Erythromycin Base) arrhea NSAIDS (Non-Steroidal AdvReac Severe Vomiting,di Verified 04/03/24 14:59 Anti-Inflamma arrhea Family History Daughter Multiple sclerosis Father CAD (coronary artery disease) Heart disease Multiple sclerosis Grandfather Heart disease Uncle Heart disease Aunt No problems noted. Sister Colon cancer Mother Hypertension Surgical History history excision neuroendocrine tumor History of appendectomy History of colonoscopy History of elbow surgery History of esophagogastroduodenoscopy (EGD) History of hysterectomy History of laparotomy History of left heart catheterization (08/17/21) History of lumbar fusion History of resection of stomach Hx of cholecystectomy Presence of permanent cardiac pacemaker (2013) Squamous cell carcinoma Status post insertion of spinal cord stimulator Social History Smoking Status: Former smoker Tobacco: How many years used: 30 how long ago did patient quit smoking: A few months ago second hand exposure: Yes alcohol intake: never substance use type: does not use caffeine: Yes Type: carbonated beverages Number of servings: 1 and coffee Number of servings: 2 what type of physical activity do you participate in: none ivania/oriental orthodox: None seatbelt use: always do you feel safe at home: Yes ROS ROS Narrative General: Denies fever/chills HENT: Does get some headaches, denies stuffy nose, denies sore throat EYES: Denies changes in vision Resp: Increased cough with yellow sputum and increased shortness of breath Cardiac: Some left lateral chest wall pain that is sharp and quick and can be reproducible as well as similar sensation towards the bottom of left-sided rib cage that is also reproducible and is unchanged over the past couple of weeks GI: Denies abdominal pain, denies changes in bowel, denies nausea/vomiting : Denies changes in urination Extremity: Denies swelling MSK: Denies weakness Neuro: Denies any numbness/tingling, does have some intermittent jerking movements in her hands Heme: Denies any bleeding or bruising Skin: Denies rashes Psychiatric: No complaints voiced Vital Signs Vital Signs Vital Signs: 04/03/24 14:54 04/03/24 14:57 04/03/24 15:51 Temperature 98.7 F 98.7 F Temperature Source Oral Oral Pulse Rate 65 67 Respiratory Rate 24 H 24 H Respiratory Effort Respiratory Depth Respiratory Pattern Blood Pressure 114/91 H 114/91 H Blood Pressure Mean 98 98 Pulse Ox 97 96 96 Oxygen Delivery Method Room Air Room Air Room Air 04/03/24 15:57 04/03/24 16:12 04/03/24 16:53 Temperature 98 F Temperature Source Temporal Pulse Rate 98 78 Respiratory Rate 18 Respiratory Effort Normal Short of Breath Respiratory Depth Normal Respiratory Pattern Normal Blood Pressure 139/81 H 119/81 H Blood Pressure Mean 100 93 Pulse Ox 93 96 Oxygen Delivery Method Room Air Room Air 04/03/24 18:00 Temperature Temperature Source Pulse Rate 66 Respiratory Rate 12 Respiratory Effort Respiratory Depth Respiratory Pattern Blood Pressure 132/78 H Blood Pressure Mean 96 Pulse Ox 94 Oxygen Delivery Method Nasal Cannula Weight Weight: 107.4 kg Body Mass Index (BMI) 43.2 Physical Exam Narrative General: Patient tired and slow to respond but is sitting up and ultimately will respond appropriately just slow to do so HEENT: Atraumatic, normocephalic Eyes: Anicteric, normal conjunctiva, extraocular movements grossly intact Neck: Supple Respiratory: Mild increased respiratory effort but does have diffuse wheezes bilaterally Cardiovascular: Regular rate GI: Soft, nontender, nondistended Extremities: No edema Musculoskeletal: Moving all extremities Neuro: No overt focal neurological deficits Skin: No rashes appreciated Psych: Cooperative Results Lab / Micro Data 04/03/24 15:00 04/03/24 15:00 Labs: Laboratory Results - last 24 hr 04/03/24 15:00: WBC 7.8, RBC 4.77, Hgb 13.5, Hct 42.3, MCV 88.7, MCH 28.3, MCHC 31.9 L, RDW Std Deviation 45.1 H, RDW Coeff of Ross 13.9, Plt Count 211, MPV 9.9, Immature Gran % (Auto) 0.900, Neut % (Auto) 49.5, Lymph % (Auto) 37.8, [place] % (Auto) 8.0, Eos % (Auto) 3.3, Baso % (Auto) 0.5, Absolute Neuts (auto) 3.9, Absolute Lymphs (auto) 2.94, Nucleated RBC % 0, Sodium 137, Potassium 4.4, Chloride 105, Carbon Dioxide 27.0, Anion Gap 5, BUN 17, Creatinine 1.32 H, Estim Creat Clear Calc 53.55, Est GFR (MDRD) Af Amer 53 L, Est GFR (MDRD) Non-Af 44 L, BUN/Creatinine Ratio 12.9, Glucose 155 H, Calcium 9.3 Micro: Microbiology 04/03/24 15:55 Mucosa - Nose SARS-CoV-2, Influenza & RSV (PCR) - Final Imaging Radiology Impression Chest X-Ray 04/03/24 16:12 IMPRESSION: No acute disease Electronically Signed: Kirill Georges MD at 16:40 EST Reading Location ID and State: [address] [place] [address] Tel , Service support , Assessment & Plan Assessment/Plan (1) Acute exacerbation of chronic obstructive pulmonary disease: PLAN: Plan #Acute exacerbation of COPD -Admit to floor, continuous O2 monitoring -Chest x-ray: No acute process COVID negative, obtain respiratory panel, sputum culture if able -O2 in place, wean as tolerated -IV methylprednisone -Scheduled DuoNebs -Albuterol prn -Antibiotics: doxy -Incentive spirometer -Mucinex #ELOY -Patient reports her CPAP broke so she threw it away in December and has not followed up -Checking ABG given pt tired and slow to respond w/ headaches and jerking in hands -CPAP qhs # CKD stage III b -Appears to be at baseline -Avoid nephrotoxic agents -Daily BMPs #Hypothyroidism -Continue Synthroid #GERD -Continue PPI #Depression/anxiety -Continue home medications #Hypertension -Continue loaded pain and metoprolol, if blood pressure remains elevated can resume home lisinopril #Tobacco use -Advise cessation -Nicotine replacement available if desired #Morbid obesity -BMI documented as 43.3 kg/m? at time of admission -Complicates treatment, prognosis, outcomes -Recommend weight loss and lifestyle changes #DVT ppx: Lovenox acute Tita Winn MD Charges/Coding Visit Charges Inpatient E&M: 02892 Init Hosp L2
[2024-04-03 20:53] LABS: Base Excess 1 mmol/L (-2 to +2); Bicarbonate 26.6 mmol/L (22-26); Blood Gas Specimen Type ART; Mode Not entered; O2 Delivery Device Cannula; PO2 74 mmHG (75-100); SITE Not entered; SO2 94 % (95-99); Total Carbon Dioxide 28 mmol/L; pCO2 48.6 mmHg (35-45); pH 7.35 (7.35-7.45)
[2024-04-03] MEDS: Metoprolol Tartrate 100 MG Tablet PO (20:59)
[2024-04-03] MEDS: guaiFENesin 1,200 MG Tablet 1200 MG PO (20:59)
[2024-04-03] MEDS: 0.9% Saline Lock 10 ML Syringe IV (20:59)
[2024-04-03] MEDS: traZODone 100 MG Tablet 200 MG PO (20:59)
[2024-04-03] MEDS: clonazePAM 0.5 MG Tablet PO (20:59)
[2024-04-03] MEDS: busPIRone 15 MG TABLET PO (21:02)
[2024-04-03] MEDS: Enoxaparin 40 MG/0.4 ML Syringe SC (21:02)
[2024-04-03] MEDS: Gabapentin 100 MG Capsule PO (21:02)
[2024-04-03] MEDS: Atorvastatin Calcium 40 MG Tablet PO (21:02)
--- NOTE | 2024-04-03 22:31 | NURSING ---
texted pt wanting a different cough meds and explained to pt she had mucinex already and pt threatened to leave. charge nurse spoke to Dr. Mckinney and got an order for Robitussin prn. went in pts room to give her robitussin and states what are you giving me? explained to pt ordered Robitussin prn. pt states she tried everything and this wont work. pt states I wont try anything.
[2024-04-04] VITALS (11 sets, daily range): BP systolic 118–158; BP diastolic 65–90; PULSE 65–88; RESP 17–19; TEMP 36.7–37; O2SAT 94–96
--- NOTE | 2024-04-04 03:11 | CPS ---
Patient is noncomplaint with CPAP at home but wanted to try to wear one of our sleep lab CPAP machines while she was here. There are no sleep lab CPAP machines available at this time as they are all in use elsewhere. There is no CPAP currently at bedside as patient would not tolerate or agree to wear a V60.
[2024-04-04] MEDS: Gabapentin 100 MG Capsule PO ×3 (05:09→22:39)
[2024-04-04] MEDS: Levothyroxine 25 MCG TABLET PO (05:09)
[2024-04-04] MEDS: 0.9% Saline Lock 10 ML Syringe IV ×3 (05:09→22:39)
[2024-04-04 06:07] LABS: Absolute Lymphocyte Count 1.49 X10^3/uL (0.83-4.51); Absolute Neutrophil Count 6.2 X10^3/uL (2.0-7.7); Basophil# 0.02 X10^3/uL; Basophil% 0.3 % (0-1); Eosinophil# 0.01 X10^3/uL; Eosinophils% 0.1 % (0-5); Hematocrit 41.8 % (37-47); Hemoglobin 13.6 g/dL (12.0-15.0); Lymphocyte # 1.49 X10^3/ul (0.83-4.51); Lymphocyte % 18.7 % (19-41); Mean Corp Hgb Conc 32.5 g/dL (32-36); Mean Corpuscular Hgb 28.4 pg (27.0-32.0); Mean Corpuscular Volume 87.3 fL (81-99); Mean Platelet Vol. 9.4 fl (6.2-12.0); Monocyte# 0.19 X10^3/uL; Monocyte% 2.4 % (0-10); NRBC Flagged by Analyzer 0 % (0-5); Neutrophil # 6.21 X10^3/uL (2.7-7.7); Neutrophil % 77.7 % (47-70); Platelet Count 202 K/mm3 (150-450); RBC Distribution Width CV 13.5 % (11.6-14.6); RBC Distribution Width SD 42.9 fl (35.1-43.9); Red Blood Count 4.79 M/mm3 (4.2-5.4)
[2024-04-04 06:59] LABS: Anion Gap 9 (5-15); BUN 19 mg/dL (7-18); BUN/Creat Ratio 14.8 RATIO (10-20); Calcium,Total 9.6 mg/dL (8.5-10.1); Chloride 106 mmol/L (98-107); Creatinine, Serum 1.28 mg/dL (0.55-1.02); EST Glomerular Filtration Rate 45 mL/min (>60); Est Glom Filt Rate - Afr Amer 55 mL/min (>60); Estimated Creatinine Clearance 53.47 ml/min; Glucose 264 mg/dL (74-106); Potassium 4.7 mmol/L (3.5-5.1); Sodium Level 136 mmol/L (136-145); Thyroid Stim Hormone (TSH) 0.692 uIU/mL (0.358-3.740)
--- NOTE | 2024-04-04 07:23 | PN.HOSP_ITS ---
Reason for Visit Reason for Visit: Diagnoses Chronic obstructive pulmonary disease with (acute) exacerbation (04/03/24) Subjective Subjective Patient is a 58-year-old female who presented to the emergency department with increasing shortness of breath and cough over 2 weeks. An assessment of COPD with acute exacerbation made admitted to regular nursing floor for further management Objective Data Objective Data Vital Signs: Vital Signs Temp Pulse Resp BP Pulse Ox O2 Del Method O2 Flow Rate 98.5 F 65 18 141/68 H 96 Nasal Cannula 2 04/04/24 02:00 04/04/24 02:00 04/04/24 02:00 04/04/24 02:00 04/04/24 02:00 04/04/24 02:00 04/04/24 02:00 Oxygen Flow Rate (L/min) 2 Oxygen Delivery Method Nasal Cannula Weight: 101.605 kg Body Mass Index (BMI) 40.9 Lab / Micro Data 04/04/24 05:53 04/04/24 05:53 Labs: Laboratory Results - last 24 hr 04/03/24 15:00: WBC 7.8, RBC 4.77, Hgb 13.5, Hct 42.3, MCV 88.7, MCH 28.3, MCHC 31.9 L, RDW Std Deviation 45.1 H, RDW Coeff of Ross 13.9, Plt Count 211, MPV 9.9, Immature Gran % (Auto) 0.900, Neut % (Auto) 49.5, Lymph % (Auto) 37.8, [place] % (Auto) 8.0, Eos % (Auto) 3.3, Baso % (Auto) 0.5, Absolute Neuts (auto) 3.9, Absolute Lymphs (auto) 2.94, Nucleated RBC % 0, Sodium 137, Potassium 4.4, Chloride 105, Carbon Dioxide 27.0, Anion Gap 5, BUN 17, Creatinine 1.32 H, Estim Creat Clear Calc 53.55, Est GFR (MDRD) Af Amer 53 L, Est GFR (MDRD) Non-Af 44 L, BUN/Creatinine Ratio 12.9, Glucose 155 H, Calcium 9.3 04/04/24 05:53: WBC 8.0, RBC 4.79, Hgb 13.6, Hct 41.8, MCV 87.3, MCH 28.4, MCHC 32.5, RDW Std Deviation 42.9, RDW Coeff of Ross 13.5, Plt Count 202, MPV 9.4, Immature Gran % (Auto) 0.800, Neut % (Auto) 77.7 H, Lymph % (Auto) 18.7 L, [place] % (Auto) 2.4, Eos % (Auto) 0.1, Baso % (Auto) 0.3, Absolute Neuts (auto) 6.2, Absolute Lymphs (auto) 1.49, Nucleated RBC % 0, Sodium 136, Potassium 4.7, Chloride 106, Carbon Dioxide 22.0, Anion Gap 9, BUN 19 H, Creatinine 1.28 H, Estim Creat Clear Calc 53.47, Est GFR (MDRD) Af Amer 55 L, Est GFR (MDRD) Non-Af 45 L, BUN/Creatinine Ratio 14.8, Glucose 264 H, Calcium 9.6, TSH 0.692 Micro: Microbiology 04/03/24 15:55 Mucosa - Nose SARS-CoV-2, Influenza & RSV (PCR) - Final ABG Data ABG results: ABG 04/03/24 20:48 Specimen Type ART Sample Site Not entered pH 7.35 Bicarbonate Actual 26.6 H Total CO2 28 Base Excess 1 O2 Saturation 94 L O2 % 2.0 ABG pCO2 48.6 H ABG pO2 74 L O2 Delivery Device Cannula Vent Mode Not entered Radiography Diagnostic Testing: Radiology Impression Chest X-Ray 04/03/24 16:12 IMPRESSION: No acute disease Electronically Signed: Kirill Georges MD at 16:40 EST Reading Location ID and State: [address] [place] [address] Tel , Service support , Physical Exam Narrative GENERAL: cooperative HEENT: Atraumatic; normocephalic EYES; Anicteric, Normal Conjunctiva NECK; supple, normal thyroid, RESPIRATORY: Diminished to auscultation CARDIOVASCULAR: Regular S1 S2, GI: soft, normoactive bowel sounds, : No Renal angle tenderness; EXTREMITIES: No edema, no clubbing, MUSCULOSKELETAL: no muscle wasting NEURO: Awake; no lateralizing signs. SKIN: No Rash PSYCH; Flat affect Assessment & Plan Assessment/Plan (1) Acute exacerbation of chronic obstructive pulmonary disease: PLAN: Plan Patient is a 58-year-old female who presented to the emergency department with increasing shortness of breath and cough over 2 weeks. An assessment of COPD with acute exacerbation made admitted to regular nursing floor for further management 1. COPD with acute exacerbation ? Patient started on bronchodilator treatment, systemic steroid as well as antibiotic therapy. Patient placed on oxygen titrated to keep saturation greater than 90. 2. 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 Patient has since remained in remission 3. History of sick sinus syndrome status post pacemaker implantation ? Patient underwent recent battery change 4. Obstructive sleep apnea ? Patient was previously on CPAP at home apparently stopped using after machine broke plan is for patient to follow-up with primary care physician for repeat sleep study and replacement of machine 5. Class III obesity with BMI of 41 ? Complicating care weight loss advised 6. Hypertension ? Blood pressure controlled, home medications continued with dose adjustment as needed 7. GERD ? On PPI 8. Tobacco dependence ? Counseled on cessation, offered nicotine patch for tobacco cravings 9. Hypothyroidism ? Patient is on levothyroxine home dose continued 10. Dyslipidemia ?Patient is on statin therapy, continued at home dose 11. Peripheral neuropathy ? Patient is a gabapentin 12. Depression with anxiety Diabetes continue patient home medications 13. History of chronic migraine ? Currently remains stable 14. Chronic kidney disease stage IIIb ? Kidney function at baseline monitor with daily BMPs Time spent in the patient's overall evaluation,decision-making process, review of diagnostic data, adjustment of management, discussion with other providers, nursing nursing and ancillary staff involved in patient's care documentation, 50 Minutes Charges/Coding Visit Charges Inpatient E&M: [address] [facility] Hosp L3
[2024-04-04] MEDS: DULoxetine Hcl 60 MG Capsule 120 MG PO (09:02)
[2024-04-04] MEDS: Ensure Plus High Protein 120 ML LIQUID PO ×3 (09:02→16:51)
[2024-04-04] MEDS: Pantoprazole Sodium 40 MG Tablet PO (09:02)
[2024-04-04] MEDS: amLODIPine 5 MG Tablet PO ×2 (09:03→22:38)
[2024-04-04] MEDS: Metoprolol Tartrate 100 MG Tablet PO ×2 (09:03→22:45)
[2024-04-04] MEDS: Fenofibrate 48 MG Tablet PO (09:03)
[2024-04-04] MEDS: Doxycycline 100 MG CAPSULE PO ×2 (09:03→22:39)
[2024-04-04] MEDS: clonazePAM 0.5 MG Tablet PO ×4 (09:03→22:39)
[2024-04-04] MEDS: busPIRone 15 MG TABLET PO ×2 (09:03→22:38)
[2024-04-04] MEDS: Isosorbide Mononitrate 60 MG Tablet PO (09:04)
[2024-04-04] MEDS: Enoxaparin 40 MG/0.4 ML Syringe SC ×2 (09:07→22:39)
[2024-04-04] MEDS: FLU VACC 2024-25(6MOS UP)/PF 45 MCG/0.5 ML SYRINGE IM (09:10)
[2024-04-04] MEDS: oxyCODONE 5 MG Tablet PO ×3 (09:42→22:51)
[2024-04-04] MEDS: Acetaminophen 325 MG Tablet 650 MG PO ×2 (09:43→16:52)
[2024-04-04] MEDS: Lisinopril 20 MG Tablet PO (09:44)
[2024-04-04] MEDS: guaiFENesin 10 ML UDC (200MG/10ML) PO (09:55)
[2024-04-04] MEDS: Ipratropium/Albuterol Sulfate 3 ML AMPUL.NEB INHALATION ×2 (11:05→17:33)
--- NOTE | 2024-04-04 11:33 | CASEMGMT ---
RN CM NOTE: Per MARCELINO Neumann, if pt qualifies for home O2, she would like to use [employer]. Pt will need home O2 amb testing done prior to discharge. Green sheet placed on pt's chart w/instructions, if she qualifies. Dianna WAGNERN RN CM
--- NOTE | 2024-04-04 12:00 | CASEMGMT ---
Social Work SW met w/pt in room, spoke w/her about prior level of function and anticipated discharge plan. PCP: Dr. Wadsworth Specialists: Dr. Alexander--pain management, Dr. Keys--cardiology, casino floorperson who comes into [facility] Insurance: [employer] Pharmacy: [facility] [place] Living arrangements/prior level of function: Pt lives [place] at [facility]. They assist pt w/meds, meals, cleaning. Pt is independent with caring for herself--bathing, getting to the restroom, dressing, laundry. LNOK: Two daughters, Riddhi and Vita LW/POA: Pt has not completed these documents. Pt does want to complete them, and put Vita as her POA. However she and Vita are currently not on speaking terms so she wants to wait. DME: Pt has a rollator, electric wheelchair. She had a CPAP but it stopped working and she threw it away. Pt is not on home O2. Plan: Pt would like to return to [facility] at d/c. Pt does not have a preference for O2 provider, does not need a list. She is agreeable to a referral to [facility] if home O2 is needed. We also spoke about home health, pt agreeable to a home health referral. Pt also does not have a preference for C agency, does not need a list. MARCELINO can make a referral to [facility] as SW is aware that they have gone into [facility] in the past. Pt agreeable to this. It is anticipated pt may be able to return to [facility] tomorrow. MARCELINO called [facility], spoke w/nurse Giulia. She states pt can return tomorrow. Updates faxed. MARCELINO left a message for [facility] with a referral. Green sheet placed on chart for anticipated return to [facility] tomorrow, with additional information on ordering home O2 should it be needed and home care. LOUIE Amin
[2024-04-04] MEDS: Atorvastatin Calcium 40 MG Tablet PO (22:37)
[2024-04-04] MEDS: traZODone 100 MG Tablet 200 MG PO (22:37)
[2024-04-05] VITALS (7 sets, daily range): BP systolic 130–139; BP diastolic 75–78; PULSE 72–91; RESP 16–18; TEMP 36.7–36.8; O2SAT 91–97
[2024-04-05 06:29] LABS: Absolute Lymphocyte Count 1.85 X10^3/uL (0.83-4.51); Basophil# 0.02 X10^3/uL; Basophil% 0.1 % (0-1); Hematocrit 42.8 % (37-47); Hemoglobin 13.4 g/dL (12.0-15.0); Lymphocyte # 1.85 X10^3/ul (0.83-4.51); Lymphocyte % 10.5 % (19-41); Mean Corp Hgb Conc 31.3 g/dL (32-36); Mean Corpuscular Hgb 27.8 pg (27.0-32.0); Mean Corpuscular Volume 88.8 fL (81-99); Mean Platelet Vol. 9.8 fl (6.2-12.0); Monocyte# 0.51 X10^3/uL; Monocyte% 2.9 % (0-10); NRBC Flagged by Analyzer 0 % (0-5); Neutrophil # 15.03 X10^3/uL (2.7-7.7); Neutrophil % 85.8 % (47-70); Platelet Count 221 K/mm3 (150-450); RBC Distribution Width CV 13.8 % (11.6-14.6); Red Blood Count 4.82 M/mm3 (4.2-5.4); White Blood Count 17.5 K/mm3 (4.4-11.0)
[2024-04-05] MEDS: Levothyroxine 25 MCG TABLET PO (06:38)
[2024-04-05] MEDS: Gabapentin 100 MG Capsule PO (06:38)
--- NOTE | 2024-04-05 07:09 | PCM.PN.HOSP ---
Reason for Visit Reason for Visit: Diagnoses Chronic obstructive pulmonary disease with (acute) exacerbation (04/03/24) Subjective Subjective Patient viral respiratory panel came back positive for parainfluenza 3 virus. Objective Data Objective Data Vital Signs: Vital Signs Temp Pulse Resp BP Pulse Ox O2 Del Method O2 Flow Rate 98.3 F 72 16 139/78 H 97 Nasal Cannula 2 04/05/24 06:35 04/05/24 06:35 04/05/24 06:35 04/05/24 06:35 04/05/24 06:35 04/05/24 06:35 04/05/24 06:35 Oxygen Flow Rate (L/min) 2 Oxygen Delivery Method Nasal Cannula Weight: 101.605 kg Body Mass Index (BMI) 40.9 Intake & Output: Intake and Output for Last 24 Hours 04/03/24 04/04/24 04/05/24 23:59 23:59 23:59 Intake Total 1000 / 1000 400 / 400 Balance 1000 / 1000 400 / 400 Lab / Micro Data 04/05/24 05:54 04/04/24 05:53 Labs: Laboratory Results - last 24 hr 04/05/24 05:54: WBC 17.5 H, RBC 4.82, Hgb 13.4, Hct 42.8, MCV 88.8, MCH 27.8, MCHC 31.3 L, RDW Std Deviation 45.0 H, RDW Coeff of Ross 13.8, Plt Count 221, MPV 9.8, Immature Gran % (Auto) 0.700, Neut % (Auto) 85.8 H, Lymph % (Auto) 10.5 L, [place] % (Auto) 2.9, Eos % (Auto) 0.0, Baso % (Auto) 0.1, Absolute Neuts (auto) 15.0 H, Absolute Lymphs (auto) 1.85, Nucleated RBC % 0 Micro: Microbiology 04/03/24 20:03 Mucosa - Nasopharyngeal Respiratory Panel (PCR) - Final Parainfluenza 3 04/03/24 15:55 Mucosa - Nose SARS-CoV-2, Influenza & RSV (PCR) - Final Physical Exam Narrative GENERAL: cooperative HEENT: Atraumatic; normocephalic EYES; Anicteric, Normal Conjunctiva NECK; supple, normal thyroid, RESPIRATORY: Diminished to auscultation CARDIOVASCULAR: Regular S1 S2, GI: soft, normoactive bowel sounds, : No Renal angle tenderness; EXTREMITIES: No edema, no clubbing, MUSCULOSKELETAL: no muscle wasting NEURO: Awake; no lateralizing signs. SKIN: No Rash PSYCH; Flat affect Assessment & Plan Assessment/Plan (1) Acute exacerbation of chronic obstructive pulmonary disease: PLAN: Plan Patient is a 58-year-old female who presented to the emergency department with increasing shortness of breath and cough over 2 weeks. An assessment of COPD with acute exacerbation made admitted to regular nursing floor for further management 1. COPD with acute exacerbation ? Patient started on bronchodilator treatment, systemic steroid as well as antibiotic therapy. Patient placed on oxygen titrated to keep saturation greater than 90. ?Patient viral respiratory panel came back positive for parainfluenza 3 virus.. Patient remained stable overnight plan is for patient to be discharged home 2. 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 Patient has since remained in remission 3. History of sick sinus syndrome status post pacemaker implantation ? Patient underwent recent battery change 4. Obstructive sleep apnea ? Patient was previously on CPAP at home apparently stopped using after machine broke plan is for patient to follow-up with primary care physician for repeat sleep study and replacement of machine 5. Class III obesity with BMI of 41 ? Complicating care weight loss advised 6. Hypertension ? Blood pressure controlled, home medications continued with dose adjustment as needed 7. GERD ? On PPI 8. Tobacco dependence ? Counseled on cessation, offered nicotine patch for tobacco cravings 9. Hypothyroidism ? Patient is on levothyroxine home dose continued 10. Dyslipidemia ?Patient is on statin therapy, continued at home dose 11. Peripheral neuropathy ? Patient is a gabapentin 12. Depression with anxiety Diabetes continue patient home medications 13. History of chronic migraine ? Currently remains stable 14. Chronic kidney disease stage IIIb ? Kidney function at baseline monitor with daily BMPs Time spent in the patient's overall evaluation,decision-making process, review of diagnostic data, adjustment of management, discussion with other providers, nursing nursing and ancillary staff involved in patient's care documentation, 50 Minutes
--- NOTE | 2024-04-05 07:38 | DS.PCM_ITS ---
Providers Date of Admission: 04/03/24 Date of Discharge: 04/05/24 Primary Care Physician: Dr. Charla Wadsworth MD Reason For Visit: HYPOXIA AECOPD Diagnosis Discharge Diagnosis (1) Acute exacerbation of chronic obstructive pulmonary disease: Status: Chronic Code(s): J44.1 - Chronic obstructive pulmonary disease with (acute) exacerbation Plan Patient is a 58-year-old female who presented to the emergency department with increasing shortness of breath and cough over 2 weeks. An assessment of COPD with acute exacerbation made admitted to regular nursing floor for further management 1. COPD with acute exacerbation ? Patient started on bronchodilator treatment, systemic steroid as well as antibiotic therapy. Patient placed on oxygen titrated to keep saturation greater than 90. ?Patient viral respiratory panel came back positive for parainfluenza 3 virus.. Patient remained stable overnight plan is for patient to be discharged home 2. 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 Patient has since remained in remission 3. History of sick sinus syndrome status post pacemaker implantation ? Patient underwent recent battery change 4. Obstructive sleep apnea ? Patient was previously on CPAP at home apparently stopped using after machine broke plan is for patient to follow-up with primary care physician for repeat sleep study and replacement of machine 5. Class III obesity with BMI of 41 ? Complicating care weight loss advised 6. Hypertension ? Blood pressure controlled, home medications continued with dose adjustment as needed 7. GERD ? On PPI 8. Tobacco dependence ? Counseled on cessation, offered nicotine patch for tobacco cravings 9. Hypothyroidism ? Patient is on levothyroxine home dose continued 10. Dyslipidemia ?Patient is on statin therapy, continued at home dose 11. Peripheral neuropathy ? Patient is a gabapentin 12. Depression with anxiety Diabetes continue patient home medications 13. History of chronic migraine ? Currently remains stable 14. Chronic kidney disease stage IIIb ? Kidney function at baseline monitor with daily BMPs Time spent in the patient's overall evaluation,decision-making process, review of diagnostic data, adjustment of management, discussion with other providers, nursing nursing and ancillary staff involved in patient's care documentation, 35 Minutes Medications at Discharge Home Medications duloxetine 60 mg capsule,delayed release 120 mg PO DAILY 05/16/22 gabapentin 300 mg capsule 300 mg PO TID 05/16/22 isosorbide mononitrate 60 mg tablet,extended release 24 hr 60 mg PO QAM #90 tabs 06/13/22 walker (Ultra-Light Rollator misc) #1 ea 10/17/22 potassium chloride 20 mEq tablet,extended release(part/cryst) 20 meq PO DAILY 01/30/23 denosumab 60 mg/mL subcutaneous syringe (Prolia) 60 mg subcut [id number] #1 mL 02/15/23 lisinopril 20 mg tablet 20 mg PO DAILY #90 tabs 02/20/23 metoprolol tartrate 100 mg tablet 100 mg PO BID blood pressure, heart #180 tabs 04/26/23 levothyroxine 25 mcg tablet 25 mcg PO DAILY 07/25/23 magnesium oxide 400 mg (241.3 mg magnesium) tablet 400 mg PO DAILY 07/25/23 omeprazole 40 mg capsule,delayed release 40 mg PO DAILY 07/25/23 fenofibrate 54 mg tablet 54 mg PO DAILY #90 tabs 07/31/23 oxycodone-acetaminophen 5 mg-325 mg tablet 1 tab PO Q6H PRN pain 3 days #5 tabs 08/01/23 sumatriptan succinate 50 mg tablet (Imitrex) See Rx Instructions PO .COMPLEX #10 tabs 08/09/23 naloxone 4 mg/actuation nasal spray 4 mg intranasal ONCE PRN opioid overdose 09/09/23 ondansetron 8 mg disintegrating tablet 8 mg PO Q6H PRN PRN nausea and vomiting 09/09/23 rosuvastatin 20 mg tablet 20 mg PO QHS 09/09/23 trazodone 150 mg tablet 150 mg PO QHS 09/09/23 trazodone 50 mg tablet 50 mg PO QHS 09/09/23 cyclobenzaprine 10 mg tablet 10 mg PO BID PRN muscle spasm #180 tabs 10/29/23 amlodipine 5 mg tablet 5 mg PO BID #60 tabs 02/05/24 buspirone 15 mg tablet 15 mg PO BID 04/03/24 buspirone 5 mg tablet 5 mg PO BID 04/03/24 clonazepam 1 mg tablet 0.5 mg PO 4XD 04/03/24 albuterol sulfate 90 mcg/actuation aerosol inhaler 2 puff inhalation Q6H PRN shortness of breath or wheezing #8.5 grams 04/05/24 doxycycline monohydrate 100 mg capsule 100 mg PO BID #14 caps 04/05/24 guaifenesin 600 mg tablet, extended release 12 hr (Mucinex) 1,200 mg (2 x 600 mg) PO BID #20 tabs 04/05/24 prednisone 20 mg tablet 20 mg PO BID #14 tabs 04/05/24 Physical Exam Narrative GENERAL: cooperative HEENT: Atraumatic; normocephalic EYES; Anicteric, Normal Conjunctiva NECK; supple, normal thyroid, RESPIRATORY: Diminished to auscultation CARDIOVASCULAR: Regular S1 S2, GI: soft, normoactive bowel sounds, : No Renal angle tenderness; EXTREMITIES: No edema, no clubbing, MUSCULOSKELETAL: no muscle wasting NEURO: Awake; no lateralizing signs. SKIN: No Rash PSYCH; Flat affect Weight / BMI Weight Weight: 101.605 kg Body Mass Index (BMI) 40.9 ABG / Lab / Microbiology Data 04/05/24 05:54 04/04/24 05:53 Laboratory: Laboratory Results - last 24 hr 04/05/24 05:54: WBC 17.5 H, RBC 4.82, Hgb 13.4, Hct 42.8, MCV 88.8, MCH 27.8, M CHC 31.3 L, RDW Std Deviation 45.0 H, RDW Coeff of Ross 13.8, Plt Count 221, MPV 9.8, Immature Gran % (Auto) 0.700, Neut % (Auto) 85.8 H, Lymph % (Auto) 10.5 L, [place] % (Auto) 2.9, Eos % (Auto) 0.0, Baso % (Auto) 0.1, Absolute Neuts (auto) 15.0 H, Absolute Lymphs (auto) 1.85, Nucleated RBC % 0 Microbiology: Microbiology 04/03/24 20:03 Mucosa - Nasopharyngeal Respiratory Panel (PCR) - Final Parainfluenza 3 04/03/24 15:55 Mucosa - Nose SARS-CoV-2, Influenza & RSV (PCR) - Final D/C Instructions Discharge Diet: No restrictions Discharge Activity: Return to Normal Activity Call your doctor if you observe: Fever of 101 or Higher, Shortness of breath, Fainting spells and Chest pain DC O2, CPAP, BIPAP Needs Home O2 Discharge instructions: No Meaningful Use Info Meaningful Use Meaningful Use Diagnoses (Choose all that apply): None applicable Ischemic Stroke Statin Dosing Therapy Reference: STATIN DOSE THERAPY REFERENCE: * Patients > 75 years receive moderate or high dose statin therapy. * Patients 75 years or YOUNGER should receive HIGH intensity statin dose unless contraindicated. You will be required to document reason for non-treatment if statin daily dose does not meet guidelines. HIGH DOSE STATIN THERAPY DAILY Atorvastatin > than or = to 40 mg Rosuvastatin > than or = to 20 mg Amlodipine + Atorvastatin > than or = to 2.5/40 mg Ezetimibe + Simvastatin 10/80 mg Simvastatin 80mg Discharge Plan Admission Admit Date/Time: 04/03/24 18:10 Attending Provider: Mac Gorman Primary Care Provider: Charla Wadsworth Consulting Providers: Tita Winn Discharge Orders/Prescriptions Prescriptions: New doxycycline monohydrate 100 mg Capsule 100 mg PO BID Qty: 14 0RF prednisone 20 mg tablet 20 mg PO BID Qty: 14 0RF guaifenesin [Mucinex] 600 mg tablet extended release 12hr 1,200 mg PO BID Qty: 20 0RF albuterol sulfate 90 mcg/actuation HFA aerosol inhaler 2 puff inhalation Q6H PRN (Reason: shortness of breath or wheezing) Qty: 8.5 0RF Continued duloxetine 60 mg capsule,delayed release(DR/EC) 120 mg PO DAILY Rx Instructions: rx by pallative care gabapentin 300 mg capsule 300 mg PO TID Patient Comments: TAKE 1 CAPSULE BY MOUTH THREE TIMES A DAY trazodone 150 mg tablet 150 mg PO QHS Rx Instructions: Take with 50 mg tablet to = 200 mg qhs potassium chloride 20 mEq tablet,ER particles/crystals 20 meq PO DAILY trazodone 50 mg tablet 50 mg PO QHS Rx Instructions: Take with 150 mg tablet to = 200 mg qhs rosuvastatin 20 mg tablet 20 mg PO QHS naloxone 4 mg/actuation spray,non-aerosol 4 mg intranasal ONCE PRN (Reason: opioid overdose) Rx Instructions: spray 1 dose into ONE nostril; alternate nostrils w each dose until help arrives magnesium oxide 400 mg (241.3 mg magnesium) tablet 400 mg PO DAILY omeprazole 40 mg capsule,delayed release(DR/EC) 40 mg PO DAILY Rx Instructions: TAKE ONE CAPSULE BY MOUTH DAILY FOR STOMACH levothyroxine 25 mcg tablet 25 mcg PO DAILY Rx Instructions: TAKE ONE TABLET BY MOUTH DAILY FOR THYROID oxycodone-acetaminophen 5-325 mg tablet 1 tab PO Q6H PRN (Reason: pain) 3 Days Qty: 5 0RF ondansetron 8 mg tablet,disintegrating 8 mg PO Q6H PRN PRN (Reason: nausea and vomiting) Rx Instructions: TAKE ONE TABLET BY MOUTH EVERY 6 HOURS NEEDED FOR NAUSEA AND VOMITING buspirone 5 mg tablet 5 mg PO BID clonazepam 1 mg tablet 0.5 mg PO 4XD buspirone 15 mg tablet 15 mg PO BID isosorbide mononitrate 60 mg tablet extended release 24 hr 60 mg PO QAM Qty: 90 3RF (DME) Ultra-Light Rollator Misc See Rx Instructions .Route Qty: 1 0RF Rx Instructions: As directed Prolia 60 mg/mL syringe 60 mg subcut [id number] Qty: 1 2RF Patient Comments: due for injection lisinopril 20 mg tablet 20 mg PO DAILY Qty: 90 1RF metoprolol tartrate 100 mg tablet 100 mg PO BID Qty: 180 1RF Rx Instructions: TAKE 1 TABLET BY MOUTH TWICE A DAY FOR BLOOD PRESSURE/HEART fenofibrate 54 mg tablet 54 mg PO DAILY Qty: 90 1RF sumatriptan succinate [Imitrex] 50 mg tablet See Rx Instructions PO .COMPLEX Qty: 10 3RF Rx Instructions: take 1 tab at onset of headache; if no relief may repeat 1 tab after at least 2 hrs; max = 4 tabs/24 hr PO cyclobenzaprine 10 mg tablet 10 mg PO BID PRN (Reason: muscle spasm) Qty: 180 1RF amlodipine 5 mg tablet 5 mg PO BID Qty: 60 11RF Referrals / Follow Up: Charla Wadsworth MD [Primary Care Provider] - Within 1 Week Disposition Disposition (needs filled in before D/C Order can be placed): Home, Self Care Charges/Coding Visit Charges Inpatient E&M: 38074 Disch Hosp >30min
[2024-04-05 07:40] LABS: Anion Gap 4 (5-15); BUN 31 mg/dL (7-18); BUN/Creat Ratio 24.8 RATIO (10-20); Calcium,Total 10.1 mg/dL (8.5-10.1); Chloride 107 mmol/L (98-107); Creatinine, Serum 1.25 mg/dL (0.55-1.02); EST Glomerular Filtration Rate 47 mL/min (>60); Est Glom Filt Rate - Afr Amer 57 mL/min (>60); Estimated Creatinine Clearance 54.75 ml/min; Glucose 286 mg/dL (74-106); Magnesium 2.3 mg/dL (1.6-2.6); Phosphorus 3.3 mg/dL (2.5-4.9); Potassium 4.8 mmol/L (3.5-5.1); Sodium Level 138 mmol/L (136-145)
[2024-04-05] MEDS: busPIRone 15 MG TABLET PO (09:39)
[2024-04-05] MEDS: Metoprolol Tartrate 100 MG Tablet PO (09:39)
[2024-04-05] MEDS: Ensure Plus High Protein 120 ML LIQUID PO (09:39)
[2024-04-05] MEDS: DULoxetine Hcl 60 MG Capsule 120 MG PO (09:39)
[2024-04-05] MEDS: Isosorbide Mononitrate 60 MG Tablet PO (09:39)
[2024-04-05] MEDS: clonazePAM 0.5 MG Tablet PO (09:39)
[2024-04-05] MEDS: Doxycycline 100 MG CAPSULE PO (09:40)
[2024-04-05] MEDS: Fenofibrate 48 MG Tablet PO (09:40)
[2024-04-05] MEDS: Pantoprazole Sodium 40 MG Tablet PO (09:40)
[2024-04-05] MEDS: Lisinopril 20 MG Tablet PO (09:40)
[2024-04-05] MEDS: amLODIPine 5 MG Tablet PO (09:42)
[2024-04-05] MEDS: oxyCODONE 5 MG Tablet PO (09:46)
[2024-04-05] MEDS: Acetaminophen 325 MG Tablet 650 MG PO (09:46)
[2024-04-05] MEDS: Ipratropium/Albuterol Sulfate 3 ML AMPUL.NEB INHALATION (09:59)
--- NOTE | 2024-04-06 15:26 | CASEMGMT ---
Social Work [facility] is able to accept pt with SOC on Saturday 04/08. Services: PT/OT/SN SHALOM Tabor
== END 2024-04-05 11:09 | disposition home or self-care (01) | DRG 191 ==
LOC: ED 18:00 → MS3 18:17
PROVIDERS: Nurse Practitioner; Admitting Provider Internal Medicine; Emergency Provider Emergency Medicine; PCP Internal Medicine; Visit Provider Internal Medicine
DX: J44.1 Chronic obstructive pulmonary disease with (acute) exacerbation (principal); C7A.092 Malignant carcinoid tumor of the stomach; I13.0 Hypertensive heart and chronic kidney disease with heart failure and stage 1 through stage 4 chronic kidney disease, or unspecified chronic kidney disease; Z68.41 Body mass index [BMI] 40.0-44.9, adult; I49.5 Sick sinus syndrome; E03.9 Hypothyroidism, unspecified; K21.9 Gastro-esophageal reflux disease without esophagitis; E66.01 Morbid (severe) obesity due to excess calories; N18.32 Chronic kidney disease, stage 3b; I50.9 Heart failure, unspecified; E78.49 Other hyperlipidemia; F41.8 Other specified anxiety disorders; G62.9 Polyneuropathy, unspecified; G47.33 Obstructive sleep apnea (adult) (pediatric); I25.10 Atherosclerotic heart disease of native coronary artery without angina pectoris; G43.709 Chronic migraine without aura, not intractable, without status migrainosus; F17.200 Nicotine dependence, unspecified, uncomplicated; E66.813 Obesity, class 3; F43.10 Post-traumatic stress disorder, unspecified; Z79.890 Hormone replacement therapy; Z11.52 Encounter for screening for COVID-19; Z90.3 Acquired absence of stomach [part of]; Z79.1 Long term (current) use of non-steroidal anti-inflammatories (NSAID); G89.4 Chronic pain syndrome; Z91.040 Latex allergy status; Z88.6 Allergy status to analgesic agent; Z88.8 Allergy status to other drugs, medicaments and biological substances; Z85.020 Personal history of malignant carcinoid tumor of stomach; Z90.49 Acquired absence of other specified parts of digestive tract; Z95.0 Presence of cardiac pacemaker; Z79.02 Long term (current) use of antithrombotics/antiplatelets
CPT/HCPCS: 36415; 36600; 71046; 80048; 82803; 83735; 84100; 84443; 85025; 87631; 87633; 90656; 93005; 94640; 94668; 97162; 97166; 99285; 99406; A4216

== ENCOUNTER 2024-04-15 17:27 | Emergency (ER) | payer MEDICARE, MEDICAID, SELFPAY ==
[2024-04-15 17:28] VITALS: BP 135/88; PULSE 72; RESP 18; TEMP 36.6; O2SAT 99
[2024-04-15 19:43] VITALS: BMI 40.3
--- NOTE | 2024-04-15 19:56 | ED.VIS.DENTA ---
HPI History of Present Illness Chief Complaint: Dental Narrative Narrative: 58-year-old female presents with right upper jaw pain and dental pain that she has had for the last 3 days. She states she did have mild facial swelling. No fevers or chills, no nausea or vomiting, no difficulty swallowing. No exacerbating or alleviating factors but she states she has constant throbbing pain in her right upper jaw on a tooth that has been broken for quite some time. She has not seen a dentist in approximately 1 year. She is currently taking Percocet for other pain. Additionally, she smokes cigarettes. [facility] Medical History Anxiety Asthma Pacemaker Hypertension UTI (urinary tract infection) Pacemaker battery depletion History of tobacco use Hyperkalemia Knee sprain Post-menopausal Cancer Arthritis Walker as ambulation aid Uses wheelchair High cholesterol Back pain Injury of back Migraine headache Dietary restriction History of IBS Smoker CPAP (continuous positive airway pressure) dependence COPD (chronic obstructive pulmonary disease) Emphysema, unspecified Leg cramps History of pain when walking History of edema History of echocardiogram History of stress test Cardiology follow-up encounter History of CHF (congestive heart failure) Chest pain Osteopenia (~10/2022) Lumbar radiculopathy Debility Leukocytosis Health care maintenance Pain of left thumb Polypharmacy Encephalopathy CHI (closed head injury) Bacteria in urine Health care maintenance Muscle spasm Tobacco use disorder, continuous Encounter for screening for malignant neoplasm of lung in current smoker with 30 pack year history or greater Osteoarthritis Greater trochanteric bursitis of left hip Infected dental carries Atherosclerotic heart disease of [place] coronary artery without angina pectoris Monomorphic ventricular tachycardia Hyperlipidemia Intermittent palpitations Diarrhea ELOY (obstructive sleep apnea) COPD (chronic obstructive pulmonary disease) Polycythemia Primary malignant neuroendocrine tumor of stomach Sacral contusion Low back strain Anxiety and depression Hypothyroidism GERD (gastroesophageal reflux disease) PTSD (post-traumatic stress disorder) Vitamin D deficiency Neuropathy Anemia Essential (primary) hypertension Neuroendocrine neoplasm of stomach Sick sinus syndrome Sinus pause Chronic lower back pain Chronic pain syndrome Tobacco dependence syndrome Familial combined hyperlipidemia Obesity Home Medications ?Medication ?Instructions ?Recorded ?Last Taken ?Type duloxetine 60 mg capsule,delayed 120 mg PO DAILY 05/16/22 04/03/24 History release gabapentin 300 mg capsule 300 mg PO TID 05/16/22 04/03/24 History isosorbide mononitrate 60 mg 60 mg PO QAM #90 tabs 06/13/22 04/03/24 Rx tablet,extended release 24 hr walker (Ultra-Light Rollator misc) #1 ea 10/17/22 Unknown Rx potassium chloride 20 mEq 20 meq PO DAILY 01/30/23 04/03/24 History tablet,extended release(part/cryst) denosumab 60 mg/mL subcutaneous 60 mg subcut [id number] #1 mL 02/15/23 09/09/23 Rx syringe (Prolia) lisinopril 20 mg tablet 20 mg PO DAILY #90 tabs 02/20/23 04/03/24 Rx metoprolol tartrate 100 mg tablet 100 mg PO BID blood pressure, 04/26/23 04/03/24 Rx heart #180 tabs levothyroxine 25 mcg tablet 25 mcg PO DAILY 07/25/23 04/03/24 History magnesium oxide 400 mg (241.3 mg 400 mg PO DAILY 07/25/23 04/03/24 History magnesium) tablet omeprazole 40 mg capsule,delayed 40 mg PO DAILY 07/25/23 04/03/24 History release fenofibrate 54 mg tablet 54 mg PO DAILY #90 tabs 07/31/23 04/03/24 Rx oxycodone-acetaminophen 5 mg-325 1 tab PO Q6H PRN pain 3 days #5 08/01/23 04/03/24 Rx mg tablet tabs sumatriptan succinate 50 mg tablet See Rx Instructions PO .COMPLEX 08/09/23 Unknown Rx (Imitrex) #10 tabs naloxone 4 mg/actuation nasal spray 4 mg intranasal ONCE PRN opioid 09/09/23 Unknown History overdose ondansetron 8 mg disintegrating 8 mg PO Q6H PRN PRN nausea and 09/09/23 04/03/24 History tablet vomiting rosuvastatin 20 mg tablet 20 mg PO QHS 09/09/23 04/02/24 History trazodone 150 mg tablet 150 mg PO QHS 09/09/23 04/02/24 History trazodone 50 mg tablet 50 mg PO QHS 09/09/23 04/02/24 History cyclobenzaprine 10 mg tablet 10 mg PO BID PRN muscle spasm #180 10/29/23 04/03/24 Rx tabs amlodipine 5 mg tablet 5 mg PO BID #60 tabs 02/05/24 04/03/24 Rx buspirone 15 mg tablet 15 mg PO BID 04/03/24 04/03/24 History buspirone 5 mg tablet 5 mg PO BID 04/03/24 Unknown History clonazepam 1 mg tablet 0.5 mg PO 4XD 04/03/24 04/03/24 History albuterol sulfate 90 mcg/actuation 2 puff inhalation Q6H PRN 04/05/24 Unknown Rx aerosol inhaler shortness of breath or wheezing #8.5 grams doxycycline monohydrate 100 mg 100 mg PO BID #14 caps 04/05/24 Unknown Rx capsule guaifenesin 600 mg tablet, 1,200 mg (2 x 600 mg) PO BID #20 04/05/24 Unknown Rx extended release 12 hr (Mucinex) tabs prednisone 20 mg tablet 20 mg PO BID #14 tabs 04/05/24 Unknown Rx penicillin V potassium 500 mg 500 mg PO 4X/DAY #40 tabs 04/15/24 Unknown Rx tablet Allergy/AdvReac Type Severity Reaction Status Date / Time latex Allergy Intermediate skin Verified 04/15/24 17:27 irritation aspirin AdvReac Severe Nausea/Vom/ Verified 04/15/24 17:27 Diarrhea erythromycin base AdvReac Severe Vomiting,di Verified 04/15/24 17:27 (Erythromycin Base) arrhea NSAIDS (Non-Steroidal AdvReac Severe Vomiting,di Verified 04/15/24 17:27 Anti-Inflamma arrhea Family History Daughter Multiple sclerosis Father CAD (coronary artery disease) Heart disease Multiple sclerosis Grandfather Heart disease Uncle Heart disease Aunt No problems noted. Sister Colon cancer Mother Hypertension Surgical History Squamous cell carcinoma History of lumbar fusion History of esophagogastroduodenoscopy (EGD) Status post insertion of spinal cord stimulator History of left heart catheterization (08/17/21) History of colonoscopy Presence of permanent cardiac pacemaker (2013) History of resection of stomach Hx of cholecystectomy History of elbow surgery History of hysterectomy History of appendectomy History of laparotomy history excision neuroendocrine tumor Social History Smoking Status: Current some day smoker tobacco type: cigarettes Tobacco: How many years used: 30 how long ago did patient quit smoking: A few months ago second hand exposure: Yes alcohol intake: never substance use type: does not use caffeine: Yes Type: carbonated beverages Number of servings: 1 and coffee Number of servings: 2 what type of physical activity do you participate in: none ivania/yazidi: None seatbelt use: always do you feel safe at home: Yes ROS ROS ED ROS Narrative Focused review of systems positive for right upper jaw pain and dental pain with reported facial swelling. No fevers or chills. No nausea or vomiting. EXAM Physical Exam Narrative Exam Narrative: Afebrile. Vital signs noted. Nontoxic-appearing. HEENT examination shows no drooling or trismus. She does have dental caries mainly in the right upper jaw. She has a broken tooth without fluctuance of the gums which appears to be at tooth #6, with a cuspid tooth. It is difficult to tell if she has widespread dental caries as well. Airway is patent. No drooling or trismus. Neck soft and supple without meningismus. Const Vital Signs: 04/15/24 17:28 Temperature 97.9 F Temperature Source Temporal Pulse Rate 72 Respiratory Rate 18 Blood Pressure 135/88 H Blood Pressure Mean 103 Pulse Ox 99 Oxygen Delivery Method Room Air MDM MDM MDM Narrative Medical decision making narrative: Differential diagnosis includes but not limited to periapical abscess versus dental abscess. There is no evidence of gingival abscess or need for incision and drainage. This is more of a broken, carious tooth. She was referred to dentistry. She was started on penicillin VK as she has allergy to erythromycin. She was written a prescription for this and will continue her Percocet as she is unable to take NSAIDs [id number] as well. Smoking cessation was discussed as well. I feel she can be discharged to follow-up. Return instructions reviewed. Disposition is discharged home in stable condition. Discharge Plan Triage Chief Complaint: Dental ED Provider: Gigi Barton Dx/Rx/DC Orders Clinical Impression: Pain, dental, Dental caries Instructions: ED Dental Pain, ED Dental Cavity, ED Dental Abscess Prescriptions: New penicillin V potassium 500 mg tablet 500 mg PO 4X/DAY Qty: 40 0RF No Action duloxetine 60 mg capsule,delayed release(DR/EC) 120 mg PO DAILY Rx Instructions: rx by pallative care gabapentin 300 mg capsule 300 mg PO TID Patient Comments: TAKE 1 CAPSULE BY MOUTH THREE TIMES A DAY trazodone 150 mg tablet 150 mg PO QHS Rx Instructions: Take with 50 mg tablet to = 200 mg qhs potassium chloride 20 mEq tablet,ER particles/crystals 20 meq PO DAILY trazodone 50 mg tablet 50 mg PO QHS Rx Instructions: Take with 150 mg tablet to = 200 mg qhs rosuvastatin 20 mg tablet 20 mg PO QHS naloxone 4 mg/actuation spray,non-aerosol 4 mg intranasal ONCE PRN (Reason: opioid overdose) Rx Instructions: spray 1 dose into ONE nostril; alternate nostrils w each dose until help arrives magnesium oxide 400 mg (241.3 mg magnesium) tablet 400 mg PO DAILY omeprazole 40 mg capsule,delayed release(DR/EC) 40 mg PO DAILY Rx Instructions: TAKE ONE CAPSULE BY MOUTH DAILY FOR STOMACH levothyroxine 25 mcg tablet 25 mcg PO DAILY Rx Instructions: TAKE ONE TABLET BY MOUTH DAILY FOR THYROID oxycodone-acetaminophen 5-325 mg tablet 1 tab PO Q6H PRN (Reason: pain) 3 Days Qty: 5 0RF ondansetron 8 mg tablet,disintegrating 8 mg PO Q6H PRN PRN (Reason: nausea and vomiting) Rx Instructions: TAKE ONE TABLET BY MOUTH EVERY 6 HOURS NEEDED FOR NAUSEA AND VOMITING buspirone 5 mg tablet 5 mg PO BID clonazepam 1 mg tablet 0.5 mg PO 4XD buspirone 15 mg tablet 15 mg PO BID doxycycline monohydrate 100 mg Capsule 100 mg PO BID Qty: 14 0RF prednisone 20 mg tablet 20 mg PO BID Qty: 14 0RF guaifenesin [Mucinex] 600 mg tablet extended release 12hr 1,200 mg PO BID Qty: 20 0RF albuterol sulfate 90 mcg/actuation HFA aerosol inhaler 2 puff inhalation Q6H PRN (Reason: shortness of breath or wheezing) Qty: 8.5 0RF isosorbide mononitrate 60 mg tablet extended release 24 hr 60 mg PO QAM Qty: 90 3RF (DME) Ultra-Light Rollator Misc See Rx Instructions .Route Qty: 1 0RF Rx Instructions: As directed Prolia 60 mg/mL syringe 60 mg subcut [id number] Qty: 1 2RF Patient Comments: due for injection lisinopril 20 mg tablet 20 mg PO DAILY Qty: 90 1RF metoprolol tartrate 100 mg tablet 100 mg PO BID Qty: 180 1RF Rx Instructions: TAKE 1 TABLET BY MOUTH TWICE A DAY FOR BLOOD PRESSURE/HEART fenofibrate 54 mg tablet 54 mg PO DAILY Qty: 90 1RF sumatriptan succinate [Imitrex] 50 mg tablet See Rx Instructions PO .COMPLEX Qty: 10 3RF Rx Instructions: take 1 tab at onset of headache; if no relief may repeat 1 tab after at least 2 hrs; max = 4 tabs/24 hr PO cyclobenzaprine 10 mg tablet 10 mg PO BID PRN (Reason: muscle spasm) Qty: 180 1RF amlodipine 5 mg tablet 5 mg PO BID Qty: 60 11RF Primary Care Provider: Charla Wadsworth Referrals: Charla Wadsworth MD [Primary Care Provider] - Activity Restrictions/Additional Instructions: Follow-up with a dentist as soon as possible. Take the antibiotics as directed. Stop smoking. Continue your Percocet as needed for pain. Return with increased swelling of your face, sustained high fever, difficulty swallowing, new or worsening symptoms. Print Language: Turkish Disposition Disposition: Home, Self Care
[2024-04-15] MEDS: Penicillin Vk 250 MG Tablet 500 MG PO (20:02)
== END 2024-04-15 20:11 | disposition home or self-care (01) ==
PROVIDERS: Emergency Provider Emergency Medicine; PCP Internal Medicine; Visit Provider Emergency Medicine
DX: K08.89 Other specified disorders of teeth and supporting structures (principal); I11.0 Hypertensive heart disease with heart failure; I50.9 Heart failure, unspecified; J43.9 Emphysema, unspecified; S02.5XXA Fracture of tooth (traumatic), initial encounter for closed fracture; X58.XXXA Exposure to other specified factors, initial encounter; K02.9 Dental caries, unspecified; R68.84 Jaw pain; E78.49 Other hyperlipidemia; E78.00 Pure hypercholesterolemia, unspecified; G89.4 Chronic pain syndrome; I25.10 Atherosclerotic heart disease of native coronary artery without angina pectoris; F17.210 Nicotine dependence, cigarettes, uncomplicated; Z79.84 Long term (current) use of oral hypoglycemic drugs; Z79.891 Long term (current) use of opiate analgesic; Z79.899 Other long term (current) drug therapy
CPT/HCPCS: 99282

== ENCOUNTER → 2024-04-20 | Outpatient (CLI) | payer MEDICARE, MEDICAID, SELFPAY ==
[2024-04-20 12:05] LABS: Mucous, Urine 0 SEEN /hpf (<or=2+)
[2024-04-20 12:30] LABS: Absolute Lymphocyte Count 3.59 X10^3/uL (0.83-4.51); Absolute Neutrophil Count 6.1 X10^3/uL (2.0-7.7); Basophil# 0.05 X10^3/uL; Basophil% 0.5 % (0-1); Eosinophil# 0.19 X10^3/uL; Eosinophils% 1.8 % (0-5); Hematocrit 43.8 % (37-47); Hemoglobin 13.8 g/dL (12.0-15.0); Lymphocyte # 3.59 X10^3/ul (0.83-4.51); Lymphocyte % 33.6 % (19-41); Mean Corp Hgb Conc 31.5 g/dL (32-36); Mean Corpuscular Hgb 28.6 pg (27.0-32.0); Mean Corpuscular Volume 90.9 fL (81-99); Mean Platelet Vol. 10.1 fl (6.2-12.0); Monocyte# 0.69 X10^3/uL; Monocyte% 6.5 % (0-10); NRBC Flagged by Analyzer 0 % (0-5); Neutrophil # 6.08 X10^3/uL (2.7-7.7); Neutrophil % 56.8 % (47-70); Platelet Count 207 K/mm3 (150-450); RBC Distribution Width CV 14.3 % (11.6-14.6); RBC Distribution Width SD 47.8 fl (35.1-43.9); Red Blood Count 4.82 M/mm3 (4.2-5.4); White Blood Count 10.7 K/mm3 (4.4-11.0)
[2024-04-20 12:38] LABS: Hemoglobin A1c 8.3 % (3.8-5.6)
[2024-04-20 15:40] LABS: Color, Urine Yellow (Yellow); Glucose, Dipstick 50 mg/dl (Normal); Ketone-Dipstick Negative (Negative); Leukocyte Esterase-Dipstick 25 /ul (Negative); Nitrite-Dipstick Negative (Negative); Occult Blood-Urine Negative /ul (Negative); Protein-Dipstick 15 mg/dl (Negative); Urine Bilirubin Dipstick Negative (Negative); Urine Clarity Clear (Clear); Urine Urobilinogen 1 mg/dl (Normal)
[2024-04-20 15:48] LABS: Bacteria RARE /hpf (None Seen); Hyaline Cast 0-5 SEEN /lpf (0-5); Red Blood Cells-Urine 0 SEEN /hpf (0-5); Squamous Epithelial Cells - UA 0-5 SEEN /hpf (5-10); Transitional Epithelial - Ur 0-5 SEEN /hpf (0-5); White Blood Cells 0-5 SEEN /hpf (0-5)
[2024-04-20 16:51] LABS: Anion Gap 4 (5-15); BUN 17 mg/dL (7-18); BUN/Creat Ratio 15.6 RATIO (10-20); Calcium,Total 9.5 mg/dL (8.5-10.1); Chloride 108 mmol/L (98-107); Creatinine, Serum 1.09 mg/dL (0.55-1.02); EST Glomerular Filtration Rate 55 mL/min (>60); Est Glom Filt Rate - Afr Amer 66 mL/min (>60); Glucose 202 mg/dL (74-106); Potassium 5.5 mmol/L (3.5-5.1); Sodium Level 142 mmol/L (136-145)
== END | disposition home or self-care (01) ==
LOC: BIMLAB 11:10
PROVIDERS: PCP Internal Medicine; Referring Provider Internal Medicine; Visit Provider Internal Medicine
DX: R82.998 Other abnormal findings in urine (principal); R73.9 Hyperglycemia, unspecified; D72.829 Elevated white blood cell count, unspecified; I10 Essential (primary) hypertension
CPT/HCPCS: 36415; 80048; 81001; 83036; 85025

== ENCOUNTER 2024-05-04 14:27 | Emergency (ER) | payer MEDICARE, MEDICAID, SELFPAY ==
[2024-05-04 14:28] VITALS: BP 134/117; PULSE 65; RESP 16; TEMP 36.9; O2SAT 98
[2024-05-04 14:30] VITALS: BMI 40.8
--- NOTE | 2024-05-04 14:46 | VDUE_ITS ---
Reason For Study Reason For Study: Pain LUE Left Proximal Left jugular vein is spontaneous, widely patent, phasic, with no intraluminal echogenicity noted. Left subclavian vein is spontaneous, widely patent, phasic, with no intraluminal echogenicity noted. Left Arm Left axillary vein is spontaneous, patent, phasic, competent, compressible and demonstrates augmentation. Lt Brachial V and Lt Ulnar V are DILATED and NON COMPRESSIBLE consistent with acute DVT. Left cephalic vein is compressible. Lt Basilic V is DILATED and NON COMPRESSIBLE consistent with acute SVT. Left Lower Arm Left radial vein is compressible. Procedure This was a unilateral left upper extremity venous doppler examination. Exam performed portable in ED. The exam was abbreviated due to the COVID 19 protocol. A preliminary report was called and/or faxed to Jcarlos Garcia NP. VL/Venous Duplex US, Unilateral Interpretation Summary Acute deep vein thrombosis noted in the left brachial vein, ulnar vein. Acute superficial vein thrombosis noted in the left basilic vein. Ordering Physician: Jcarlos Garcia Referring Physician: Charla Wadsworth Performed By: Edwina Laurent, LU, RVT ???
[2024-05-04] MEDS: Morphine 4 MG/ML Syringe IV (15:06)
[2024-05-04] MEDS: Ondansetron 4 MG/2 ML Vial IV (15:06)
--- NOTE | 2024-05-04 15:11 | EDS_ITS ---
<Statement entered by Gregory Xie DO - 05/04/24 16:31> Patient was seen and examined with nurse practitioner Jcarlos All components of the history and physical confirmed and agreed. History of present illness and physical exam: Patient is a 58-year-old female past medical type 2 diabetes, pacemaker, CAD, chronic back pain living in an assisted living who presents to the emergency department with a chief complaint of left forearm pain up into her arm. States that she had been dealing with COVID for approximately 10 days now. States that about 3 days ago she developed her pain in the left forearm that is not getting any better therefore she came here for the valuation management. She states that she did talk to her primary care physician who also recommended her come here. Patient denies any blood thinner medications denies any history of blood clots. Review of systems: Agree with above Physical exam: Agree with above will add on that compartments are soft compressible MDM Patient is a 58-year-old female who presented to the emergency department chief complaint of left upper extremity pain. On the differential diagnose includes but limited to superficial venous thrombosis, DVT, thrombophlebitis, cellulitis. Once workup is obtained reviewed she will be reevaluated. Patient's ultrasound was obtained here in the emergency department and did show a upper extremity DVT to the left brachial vein, left ulnar vein and a superficial venous thrombosis to the basilic vein. Did discussed case with Dr. France vascular surgeon on-call and is recommending Eliquis starter pack. The patient was prescribed this she was advised to return with worsening symptoms or any concerns. She is advised to also follow-up with her primary care physician outpatient setting. She is agreeable this plan all question concerns answered she was discharged home in stable condition. Final impression: Left upper extremity DVT Left upper extremity superficial venous thrombosis Left upper extremity pain Disposition: Patient will be discharged home in stable condition Supervising attending attestation: Gregory Xie D.O. [facility] History of Present Illness Chief Complaint: Upper Extremity Injury Narrative Narrative: Patient is a 58-year-old female with history of type 2 diabetes, pacemaker, ACS, chronic back pain who lives at assisted living. Patient states that she is currently dealing with COVID-19 and is on 10 days. She developed 3 days ago pain to her left forearm that went up to her left bicep. She states there is a hard cordlike feeling to the forearm, she did talk to her PCP referred her to the emergency department. Patient is currently not on any blood thinning medicine. Patient denies any chest pain or shortness of breath. Pay states she feels generalized weakness from the COVID-19 [facility] Medical History (Updated 05/04/24 @ 15:59 by EDWIN Mosley) Type 2 diabetes mellitus Blood glucose elevated Dark urine Anxiety Asthma Pacemaker Hypertension UTI (urinary tract infection) Pacemaker battery depletion History of tobacco use Hyperkalemia Knee sprain Post-menopausal Cancer Arthritis Walker as ambulation aid Uses wheelchair High cholesterol Back pain Injury of back Migraine headache Dietary restriction History of IBS Smoker CPAP (continuous positive airway pressure) dependence COPD (chronic obstructive pulmonary disease) Emphysema, unspecified Leg cramps History of pain when walking History of edema History of echocardiogram History of stress test Cardiology follow-up encounter History of CHF (congestive heart failure) Chest pain Osteopenia (~10/2022) Lumbar radiculopathy Debility Leukocytosis Health care maintenance Pain of left thumb Polypharmacy Encephalopathy CHI (closed head injury) Bacteria in urine Health care maintenance Muscle spasm Tobacco use disorder, continuous Encounter for screening for malignant neoplasm of lung in current smoker with 30 pack year history or greater Osteoarthritis Greater trochanteric bursitis of left hip Infected dental carries Atherosclerotic heart disease of [place] coronary artery without angina pectoris Monomorphic ventricular tachycardia Hyperlipidemia Intermittent palpitations Diarrhea ELOY (obstructive sleep apnea) COPD (chronic obstructive pulmonary disease) Polycythemia Primary malignant neuroendocrine tumor of stomach Sacral contusion Low back strain Anxiety and depression Hypothyroidism GERD (gastroesophageal reflux disease) PTSD (post-traumatic stress disorder) Vitamin D deficiency Neuropathy Anemia Essential (primary) hypertension Neuroendocrine neoplasm of stomach Sick sinus syndrome Sinus pause Chronic lower back pain Chronic pain syndrome Tobacco dependence syndrome Familial combined hyperlipidemia Obesity Home Medications ?Medication ?Instructions ?Recorded ?Last Taken ?Type duloxetine 60 mg capsule,delayed 120 mg PO DAILY 05/1604/03/24 History release gabapentin 300 mg capsule 300 mg PO TID 05/16/2204/03 History isosorbide mononitrate 60 mg 60 mg PO QAM #90 tabs 07/3104/03/24 Rx tablet,extended release 24 hr walker (Ultra-Light Rollator misc) #1 ea 10/17/22 Unkn own Rx potassium chloride 20 mEq 20 meq PO DAILY 01/30/23 History tablet,extended release(part/cryst) denosumab 60 mg/mL subcutaneous 60 mg subcut [id number] #1 mL 02/15/23 09/09/23 Rx syringe (Prolia) lisinopril 20 mg tablet 20 mg PO DAILY #90 tabs 02/0804/03/24 Rx metoprolol tartrate 100 mg tablet 100 mg PO BID blood pressure, 04/26/23 04/03/24 Rx heart #180 tabs levothyroxine 25 mcg tablet 25 mcg PO DAILY 07/25/23 0 04/03/24 History magnesium oxide 400 mg (241.3 mg 400 mg PO DAILY 07/2404/03/24 History magnesium) tablet omeprazole 40 mg capsule,delayed 40 mg PO DAILY 04/03/24 History release fenofibrate 54 mg tablet 54 mg PO DAILY #90 tabs 07/1004/03/24 Rx oxycodone-acetaminophen 5 mg-325 1 tab PO Q6H PRN pain 3 days #5 08/01/23 04/03/24 Rx mg tablet tabs sumatriptan succinate 50 mg tablet See Rx Instructions PO .COMPLEX 08/09/23 Unknown Rx (Imitrex) #10 tabs ondansetron 8 mg disintegrating 8 mg PO Q6H PRN PRN na usea and 09/09/23 04/03/24 History tablet vomiting rosuvastatin 20 mg tablet 20 mg PO QHS 09/09/23 History trazodone 150 mg tablet 150 mg PO QHS 09/09/2304/02 History trazodone 50 mg tablet 50 mg PO QHS 09/09/23 History cyclobenzaprine 10 mg tablet 10 mg PO BID PRN muscle s pasm #180 10/29/23 04/03/24 Rx tabs amlodipine 5 mg tablet 5 mg PO BID #60 tabs 4 04/03/24 Rx buspirone 15 mg tablet 15 mg PO BID 04/03/24 History buspirone 5 mg tablet 5 mg PO BID 04/03/24 Unknown History clonazepam 1 mg tablet 0.5 mg PO 4XD 04/03/2404/03 History albuterol sulfate 90 mcg/actuation 2 puff inhalation Q 6H PRN 04/05/24 Unknown Rx aerosol inhaler shortness of breath or wheez ing #8.5 grams penicillin V potassium 500 mg 500 mg PO 4X/DAY #40 tab s 04/15/24 Unknown Rx tablet glimepiride 2 mg tablet 2 mg PO BID #60 tabs 5 Unknown Rx blood sugar diagnostic (FreeStyle #100 ea 04/21/24 Unk nown Rx Lite Strips) blood-glucose meter (FreeStyle #1 ea 04/21/24 Unknown Rx Lite Meter kit) lancets 28 gauge (FreeStyle #200 ea 04/21/24 Unknown R x Lancets) apixaban 5 mg (74 tabs) tablets in See Rx Instructions PO .COMPLEX 05/04/24 Unknown Rx a dose pack (Eliquis DVT-PE Treat #74 tabs 30D Start) Allergy/AdvReac Type Severity Reaction Status Date / Time latex Allergy Intermediate skin Verified 05/04/24 14:30 irritation aspirin AdvReac Severe Nausea/Vom/ Verified 05/04/24 14:30 Diarrhea erythromycin base AdvReac Severe Vomiting,di Verified 05/04/24 14:30 (Erythromycin Base) arrhea NSAIDS (Non-Steroidal AdvReac Severe Vomiting,di Verified 05/04/24 14:30 Anti-Inflamma arrhea Family History Daughter Multiple sclerosis Father CAD (coronary artery disease) Heart disease Multiple sclerosis Grandfather Heart disease Uncle Heart disease Aunt No problems noted. Sister Colon cancer Mother Hypertension Surgical History Squamous cell carcinoma History of lumbar fusion History of esophagogastroduodenoscopy (EGD) Status post insertion of spinal cord stimulator History of left heart catheterization (08/17/21) History of colonoscopy Presence of permanent cardiac pacemaker (2013) History of resection of stomach Hx of cholecystectomy History of elbow surgery History of hysterectomy History of appendectomy History of laparotomy history excision neuroendocrine tumor Social History Smoking Status: Current some day smoker tobacco type: cigarettes Tobacco: How many years used: 30 how long ago did patient quit smoking: A few months ago second hand exposure: Yes alcohol intake: never substance use type: does not use caffeine: Yes Type: carbonated beverages Number of servings: 1 and coffee Number of servings: 2 what type of physical activity do you participate in: none ivania/cheondoism: None seatbelt use: always do you feel safe at home: Yes ROS ROS ED ROS Narrative Constitutional: Negative for fever, chills, weight loss, weakness Eyes: Negative for vision loss, vision change, double vision ENT: Negative for any sore throat, ear pain, congestion Cardiovascular: Negative for any chest pain, tightness, palpitations Respiratory: Negative for any cough, sputum production, hemoptysis, dyspnea, dyspnea on exertion, orthopnea Gastrointestinal: Negative for any abdominal pain, nausea, vomiting, diarrhea, constipation, blood in stool, blood in vomit : Negative for any urinary frequency, dysuria, retention, blood in urine Muscle skeletal: Negative for any neck pain, back pain. Positive for pain to the left forearm, left bicep Neurological: Negative for any headache, syncope, dizziness Skin: Negative for any rashes, itching, abrasions, lacerations Psychiatric: Negative for any depression, anxiety, stress, suicidal ideation, homicidal ideation Hematologic: Negative for any excessive bruising, easy bleeding EXAM Physical Exam Narrative Exam Narrative: Vital signs reviewed. HEET: Head normocephalic atraumatic, TMs clear bilaterally. Posterior pharynx is clear, moist mucous membranes. Nares clear bilaterally. Neck: Supple with no lymphadenopathy or tenderness. No signs of meningismus. Cardiac: Regular rate and rhythm no murmurs gallops or rubs, equal peripheral pulses bilaterally. Respiratory: Lungs clear to auscultation bilaterally. No chest tenderness. Abdomen: Soft, nontender, nondistended. No abdominal bruit or pulsatile masses. No hepatosplenomegaly Extremities: Patient does have some redness to the left forearm, there is a cordlike like feeling to the forearm, left antecubital area, active full range of motion of all extremities. +2 radial pulse. Patient does have worsening pain on palpation. Flexion extension. Obvious difference from the right arm. Neuro: Cranial nerves II through XII intact, no focal neurological deficits. Skin: Clean dry and intact with no rash, purpura, petechiae, vesicles or pustules. Backs/flank: No CVA tenderness, no midline spinal tenderness, no deformity. Psych: Normal mood and affect. No SI, HI or acute psychosis. Const Vital Signs: 05/04/24 14:28
--- NOTE | 2024-05-04 15:11 | EX.ED.UPPERE ---
HPI History of Present Illness Chief Complaint: Upper Extremity Injury Narrative Narrative: Patient is a 58-year-old female with history of type 2 diabetes, pacemaker, ACS, chronic back pain who lives at assisted living. Patient states that she is currently dealing with COVID-19 and is on 10 days. She developed 3 days ago pain to her left forearm that went up to her left bicep. She states there is a hard cordlike feeling to the forearm, she did talk to her PCP referred her to the emergency department. Patient is currently not on any blood thinning medicine. Patient denies any chest pain or shortness of breath. Pay states she feels generalized weakness from the COVID-19 [facility] Medical History (Updated 05/04/24 @ 15:59 by EDWIN Mosley) Type 2 diabetes mellitus Blood glucose elevated Dark urine Anxiety Asthma Pacemaker Hypertension UTI (urinary tract infection) Pacemaker battery depletion History of tobacco use Hyperkalemia Knee sprain Post-menopausal Cancer Arthritis Walker as ambulation aid Uses wheelchair High cholesterol Back pain Injury of back Migraine headache Dietary restriction History of IBS Smoker CPAP (continuous positive airway pressure) dependence COPD (chronic obstructive pulmonary disease) Emphysema, unspecified Leg cramps History of pain when walking History of edema History of echocardiogram History of stress test Cardiology follow-up encounter History of CHF (congestive heart failure) Chest pain Osteopenia (~10/2022) Lumbar radiculopathy Debility Leukocytosis Health care maintenance Pain of left thumb Polypharmacy Encephalopathy CHI (closed head injury) Bacteria in urine Health care maintenance Muscle spasm Tobacco use disorder, continuous Encounter for screening for malignant neoplasm of lung in current smoker with 30 pack year history or greater Osteoarthritis Greater trochanteric bursitis of left hip Infected dental carries Atherosclerotic heart disease of [place] coronary artery without angina pectoris Monomorphic ventricular tachycardia Hyperlipidemia Intermittent palpitations Diarrhea ELOY (obstructive sleep apnea) COPD (chronic obstructive pulmonary disease) Polycythemia Primary malignant neuroendocrine tumor of stomach Sacral contusion Low back strain Anxiety and depression Hypothyroidism GERD (gastroesophageal reflux disease) PTSD (post-traumatic stress disorder) Vitamin D deficiency Neuropathy Anemia Essential (primary) hypertension Neuroendocrine neoplasm of stomach Sick sinus syndrome Sinus pause Chronic lower back pain Chronic pain syndrome Tobacco dependence syndrome Familial combined hyperlipidemia Obesity Home Medications ?Medication ?Instructions ?Recorded ?Last Taken ?Type duloxetine 60 mg capsule,delayed 120 mg PO DAILY 05/16/22 04/03/24 History release gabapentin 300 mg capsule 300 mg PO TID 05/16/22 04/03/24 History isosorbide mononitrate 60 mg 60 mg PO QAM #90 tabs 06/13/22 04/03/24 Rx tablet,extended release 24 hr walker (Ultra-Light Rollator misc) #1 ea 10/17/22 Unknown Rx potassium chloride 20 mEq 20 meq PO DAILY 01/30/23 04/03/24 History tablet,extended release(part/cryst) denosumab 60 mg/mL subcutaneous 60 mg subcut [id number] #1 mL 02/15/23 09/09/23 Rx syringe (Prolia) lisinopril 20 mg tablet 20 mg PO DAILY #90 tabs 02/20/23 04/03/24 Rx metoprolol tartrate 100 mg tablet 100 mg PO BID blood pressure, 04/26/23 04/03/24 Rx heart #180 tabs levothyroxine 25 mcg tablet 25 mcg PO DAILY 07/25/23 04/03/24 History magnesium oxide 400 mg (241.3 mg 400 mg PO DAILY 07/25/23 04/03/24 History magnesium) tablet omeprazole 40 mg capsule,delayed 40 mg PO DAILY 07/25/23 04/03/24 History release fenofibrate 54 mg tablet 54 mg PO DAILY #90 tabs 07/31/23 04/03/24 Rx oxycodone-acetaminophen 5 mg-325 1 tab PO Q6H PRN pain 3 days #5 08/01/23 04/03/24 Rx mg tablet tabs sumatriptan succinate 50 mg tablet See Rx Instructions PO .COMPLEX 08/09/23 Unknown Rx (Imitrex) #10 tabs ondansetron 8 mg disintegrating 8 mg PO Q6H PRN PRN nausea and 09/09/23 04/03/24 History tablet vomiting rosuvastatin 20 mg tablet 20 mg PO QHS 09/09/23 04/02/24 History trazodone 150 mg tablet 150 mg PO QHS 09/09/23 04/02/24 History trazodone 50 mg tablet 50 mg PO QHS 09/09/23 04/02/24 History cyclobenzaprine 10 mg tablet 10 mg PO BID PRN muscle spasm #180 10/29/23 04/03/24 Rx tabs amlodipine 5 mg tablet 5 mg PO BID #60 tabs 02/05/24 04/03/24 Rx buspirone 15 mg tablet 15 mg PO BID 04/03/24 04/03/24 History buspirone 5 mg tablet 5 mg PO BID 04/03/24 Unknown History clonazepam 1 mg tablet 0.5 mg PO 4XD 04/03/24 04/03/24 History albuterol sulfate 90 mcg/actuation 2 puff inhalation Q6H PRN 04/05/24 Unknown Rx aerosol inhaler shortness of breath or wheezing #8.5 grams penicillin V potassium 500 mg 500 mg PO 4X/DAY #40 tabs 04/15/24 Unknown Rx tablet glimepiride 2 mg tablet 2 mg PO BID #60 tabs 04/20/24 Unknown Rx blood sugar diagnostic (FreeStyle #100 ea 04/21/24 Unknown Rx Lite Strips) blood-glucose meter (FreeStyle #1 ea 04/21/24 Unknown Rx Lite Meter kit) lancets 28 gauge (FreeStyle #200 ea 04/21/24 Unknown Rx Lancets) apixaban 5 mg (74 tabs) tablets in See Rx Instructions PO .COMPLEX 05/04/24 Unknown Rx a dose pack (Eliquis DVT-PE Treat #74 tabs 30D Start) Allergy/AdvReac Type Severity Reaction Status Date / Time latex Allergy Intermediate skin Verified 05/04/24 14:30 irritation aspirin AdvReac Severe Nausea/Vom/ Verified 05/04/24 14:30 Diarrhea erythromycin base AdvReac Severe Vomiting,di Verified 05/04/24 14:30 (Erythromycin Base) arrhea NSAIDS (Non-Steroidal AdvReac Severe Vomiting,di Verified 05/04/24 14:30 Anti-Inflamma arrhea Family History Daughter Multiple sclerosis Father CAD (coronary artery disease) Heart disease Multiple sclerosis Grandfather Heart disease Uncle Heart disease Aunt No problems noted. Sister Colon cancer Mother Hypertension Surgical History Squamous cell carcinoma History of lumbar fusion History of esophagogastroduodenoscopy (EGD) Status post insertion of spinal cord stimulator History of left heart catheterization (08/17/21) History of colonoscopy Presence of permanent cardiac pacemaker (2013) History of resection of stomach Hx of cholecystectomy History of elbow surgery History of hysterectomy History of appendectomy History of laparotomy history excision neuroendocrine tumor Social History Smoking Status: Current some day smoker tobacco type: cigarettes Tobacco: How many years used: 30 how long ago did patient quit smoking: A few months ago second hand exposure: Yes alcohol intake: never substance use type: does not use caffeine: Yes Type: carbonated beverages Number of servings: 1 and coffee Number of servings: 2 what type of physical activity do you participate in: none ivania/jew: None seatbelt use: always do you feel safe at home: Yes ROS ROS ED ROS Narrative Constitutional: Negative for fever, chills, weight loss, weakness Eyes: Negative for vision loss, vision change, double vision ENT: Negative for any sore throat, ear pain, congestion Cardiovascular: Negative for any chest pain, tightness, palpitations Respiratory: Negative for any cough, sputum production, hemoptysis, dyspnea, dyspnea on exertion, orthopnea Gastrointestinal: Negative for any abdominal pain, nausea, vomiting, diarrhea, constipation, blood in stool, blood in vomit : Negative for any urinary frequency, dysuria, retention, blood in urine Muscle skeletal: Negative for any neck pain, back pain. Positive for pain to the left forearm, left bicep Neurological: Negative for any headache, syncope, dizziness Skin: Negative for any rashes, itching, abrasions, lacerations Psychiatric: Negative for any depression, anxiety, stress, suicidal ideation, homicidal ideation Hematologic: Negative for any excessive bruising, easy bleeding EXAM Physical Exam Narrative Exam Narrative: Vital signs reviewed. HEET: Head normocephalic atraumatic, TMs clear bilaterally. Posterior pharynx is clear, moist mucous membranes. Nares clear bilaterally. Neck: Supple with no lymphadenopathy or tenderness. No signs of meningismus. Cardiac: Regular rate and rhythm no murmurs gallops or rubs, equal peripheral pulses bilaterally. Respiratory: Lungs clear to auscultation bilaterally. No chest tenderness. Abdomen: Soft, nontender, nondistended. No abdominal bruit or pulsatile masses. No hepatosplenomegaly Extremities: Patient does have some redness to the left forearm, there is a cordlike like feeling to the forearm, left antecubital area, active full range of motion of all extremities. +2 radial pulse. Patient does have worsening pain on palpation. Flexion extension. Obvious difference from the right arm. Neuro: Cranial nerves II through XII intact, no focal neurological deficits. Skin: Clean dry and intact with no rash, purpura, petechiae, vesicles or pustules. Backs/flank: No CVA tenderness, no midline spinal tenderness, no deformity. Psych: Normal mood and affect. No SI, HI or acute psychosis. Const Vital Signs: 05/04/24 14:28 Temperature 98.4 F Temperature Source Oral Pulse Rate 65 Respiratory Rate 16 Blood Pressure 134/117 H Blood Pressure Mean 122 Pulse Ox 98 Oxygen Delivery Method Room Air Positive well nourished, well developed and obese General Appearance ED: well developed Nutritional Appearance: obese MDM MDM Treatment and Re-Evaluation Narrative: Differential diagnosis includes however is not limited to: Superficial thrombophlebitis, DVT, cellulitis, muscle strain Patient appears generally well, vital signs are stable, patient is nontoxic-appearing. Presenting to the emergency department with complaints of left forearm, left bicep pain. Patient does have a palpable vein that does feel cordlike going from the forearm to the antecubital area. There is tenderness to the palpation. Slight redness however no significant cellulitis. +2 radial pulse. Venous duplex will be obtained of the left upper extremity, basic laboratory values including PT/INR. IV morphine and Zofran will be given. Patient's CBC was unremarkable, patient's chemistries show a creatinine of 1.5 this is baseline. Potassium 5.4. Patient's venous duplex of the left upper extremity does show a positive DVT to the left brachial vein and left ulnar vein, as well as a superficial blood clot to the basilic vein. Secondary this finding, I did reach out to Dr. France, patient placed on Eliquis twice a day, will be given a starter pack. Given her first dose here. I will reach out to the patient's primary care doctor to ensure close follow-up. Patient at this time again has no chest pain or shortness of breath. Do not believe a CT of the chest is necessary at this time. Vital signs are stable. Patient stable for discharge. Discharge Plan Triage Chief Complaint: Upper Extremity Injury ED Midlevel Provider: Jcarlos Garcia ED Provider: Gregory Xie Dx/Rx/DC Orders Clinical Impression: DVT (deep venous thrombosis) Instructions: DVT Dc, DVT Tx, ED Deep Vein Thrombosis (DVT) [facility]: [facility]PE Treat 30D Start 5 mg (74 tabs) tablets,dose pack See Rx Instructions .ROUTE .COMPLEX Qty: 74 0RF Rx Instructions: orally per package directions No Action duloxetine 60 mg capsule,delayed release(DR/EC) 120 mg PO DAILY Rx Instructions: rx by pallative care gabapentin 300 mg capsule 300 mg PO TID Patient Comments: TAKE 1 CAPSULE BY MOUTH THREE TIMES A DAY trazodone 150 mg tablet 150 mg PO QHS Rx Instructions: Take with 50 mg tablet to = 200 mg qhs potassium chloride 20 mEq tablet,ER particles/crystals 20 meq PO DAILY trazodone 50 mg tablet 50 mg PO QHS Rx Instructions: Take with 150 mg tablet to = 200 mg qhs rosuvastatin 20 mg tablet 20 mg PO QHS magnesium oxide 400 mg (241.3 mg magnesium) tablet 400 mg PO DAILY omeprazole 40 mg capsule,delayed release(DR/EC) 40 mg PO DAILY Rx Instructions: TAKE ONE CAPSULE BY MOUTH DAILY FOR STOMACH levothyroxine 25 mcg tablet 25 mcg PO DAILY Rx Instructions: TAKE ONE TABLET BY MOUTH DAILY FOR THYROID oxycodone-acetaminophen 5-325 mg tablet 1 tab PO Q6H PRN (Reason: pain) 3 Days Qty: 5 0RF ondansetron 8 mg tablet,disintegrating 8 mg PO Q6H PRN PRN (Reason: nausea and vomiting) Rx Instructions: TAKE ONE TABLET BY MOUTH EVERY 6 HOURS NEEDED FOR NAUSEA AND VOMITING penicillin V potassium 500 mg tablet 500 mg PO 4X/DAY Qty: 40 0RF buspirone 5 mg tablet 5 mg PO BID clonazepam 1 mg tablet 0.5 mg PO 4XD buspirone 15 mg tablet 15 mg PO BID albuterol sulfate 90 mcg/actuation HFA aerosol inhaler 2 puff inhalation Q6H PRN (Reason: shortness of breath or wheezing) Qty: 8.5 0RF isosorbide mononitrate 60 mg tablet extended release 24 hr 60 mg PO QAM Qty: 90 3RF (DME) Ultra-Light Rollator Misc See Rx Instructions .Route Qty: 1 0RF Rx Instructions: As directed Prolia 60 mg/mL syringe 60 mg subcut [id number] Qty: 1 2RF Patient Comments: due for injection lisinopril 20 mg tablet 20 mg PO DAILY Qty: 90 1RF metoprolol tartrate 100 mg tablet 100 mg PO BID Qty: 180 1RF Rx Instructions: TAKE 1 TABLET BY MOUTH TWICE A DAY FOR BLOOD PRESSURE/HEART fenofibrate 54 mg tablet 54 mg PO DAILY Qty: 90 1RF sumatriptan succinate [Imitrex] 50 mg tablet See Rx Instructions PO .COMPLEX Qty: 10 3RF Rx Instructions: take 1 tab at onset of headache; if no relief may repeat 1 tab after at least 2 hrs; max = 4 tabs/24 hr PO cyclobenzaprine 10 mg tablet 10 mg PO BID PRN (Reason: muscle spasm) Qty: 180 1RF amlodipine 5 mg tablet 5 mg PO BID Qty: 60 11RF glimepiride 2 mg tablet 2 mg PO BID Qty: 60 2RF (DME) FreeStyle Lite Strips Strip See Rx Instructions .MEDSUPPLY Qty: 100 3RF Rx Instructions: check blood glucose daily for type 2 DM (DME) blood-glucose meter [FreeStyle Lite Meter] Kit See Rx Instructions .MEDSUPPLY Qty: 1 0RF Rx Instructions: As directed, check blood glucose daily for type 2 DM (DME) lancets [FreeStyle Lancets] 28 gauge misc See Rx Instructions .MEDSUPPLY Qty: 200 3RF Rx Instructions: check blood glucose daily for type 2 DM Primary Care Provider: Charla Wadsworth Referrals: Charla Wadsworth MD [Primary Care Provider] - Keon France MD [Med Staff - Active Staff] - Activity Restrictions/Additional Instructions: You have a DVT to your left upper extremity. You need to be placed on the Eliquis, 10 mg twice a day for 1 week, 5 mg twice a day thereafter. You need approximately 3 months of treatment. You need to follow-up with your PCP. Return here for any chest pain or shortness of breath. Print Language: Turkish Disposition Disposition: Home, Self Care
[2024-05-04 15:21] LABS: Absolute Lymphocyte Count 3.17 X10^3/uL (0.83-4.51); Absolute Neutrophil Count 5.2 X10^3/uL (2.0-7.7); Basophil# 0.02 X10^3/uL; Basophil% 0.2 % (0-1); Eosinophil# 0.17 X10^3/uL; Eosinophils% 1.8 % (0-5); Hematocrit 39.4 % (37-47); Hemoglobin 12.1 g/dL (12.0-15.0); Lymphocyte # 3.17 X10^3/ul (0.83-4.51); Lymphocyte % 33.1 % (19-41); Mean Corp Hgb Conc 30.7 g/dL (32-36); Mean Corpuscular Hgb 28.3 pg (27.0-32.0); Mean Corpuscular Volume 92.3 fL (81-99); Mean Platelet Vol. 9.7 fl (6.2-12.0); Monocyte# 0.89 X10^3/uL; Monocyte% 9.3 % (0-10); NRBC Flagged by Analyzer 0.2 % (0-5); Neutrophil # 5.21 X10^3/uL (2.7-7.7); Neutrophil % 54.5 % (47-70); Platelet Count 298 K/mm3 (150-450); RBC Distribution Width CV 15.4 % (11.6-14.6); RBC Distribution Width SD 52.2 fl (35.1-43.9); Red Blood Count 4.27 M/mm3 (4.2-5.4); White Blood Count 9.6 K/mm3 (4.4-11.0)
[2024-05-04 15:52] LABS: Anion Gap 4 (5-15); BUN 21 mg/dL (7-18); BUN/Creat Ratio 13.6 RATIO (10-20); Calcium,Total 8.3 mg/dL (8.5-10.1); Chloride 118 mmol/L (98-107); Creatinine, Serum 1.54 mg/dL (0.55-1.02); EST Glomerular Filtration Rate 37 mL/min (>60); Est Glom Filt Rate - Afr Amer 44 mL/min (>60); Estimated Creatinine Clearance 44.34 ml/min; Glucose 143 mg/dL (74-106); Potassium 5.4 mmol/L (3.5-5.1); Sodium Level 145 mmol/L (136-145)
[2024-05-04 15:55] VITALS: BP 109/71; PULSE 65; RESP 16; TEMP 36.9; O2SAT 98
[2024-05-04] MEDS: APIXABAN 5 MG TABLET 10 MG PO (16:02)
[2024-05-04 16:05] LABS: Prothrombin Time (Protime)PT. 13.3 SECONDS (11.7-14.9)
== END 2024-05-04 16:12 | disposition home or self-care (01) ==
PROVIDERS: Nurse Practitioner; Emergency Provider Emergency Medicine; PCP Internal Medicine; Visit Provider Emergency Medicine
DX: I82.612 Acute embolism and thrombosis of superficial veins of left upper extremity (principal); I11.0 Hypertensive heart disease with heart failure; I50.9 Heart failure, unspecified; J43.9 Emphysema, unspecified; E11.40 Type 2 diabetes mellitus with diabetic neuropathy, unspecified; I25.10 Atherosclerotic heart disease of native coronary artery without angina pectoris; E78.00 Pure hypercholesterolemia, unspecified; G89.29 Other chronic pain; M54.9 Dorsalgia, unspecified; E78.49 Other hyperlipidemia; Z95.0 Presence of cardiac pacemaker; F17.210 Nicotine dependence, cigarettes, uncomplicated
CPT/HCPCS: 80048; 85025; 85610; 93971; 96374; 96375; 99283; A4216; J2405

== ENCOUNTER 2024-05-12 21:07 | Emergency (ER) | payer MEDICARE, MEDICAID, SELFPAY ==
[2024-05-12 21:08] VITALS: BP 124/78; PULSE 66; RESP 16; TEMP 36.2; O2SAT 97
--- NOTE | 2024-05-12 22:09 | CT_ITS ---
PROCEDURE: ABDOMEN/PELVIS WITHOUT CONT TECHNIQUE: Abdomen and pelvis CT with intravenous contrast. No oral contrast. IV CONTRAST: None COMPARISON: CT of the abdomen and pelvis dated 02/20/2024 FINDINGS: Lung bases: Clear Liver: Diffuse low-attenuation of the liver, consistent with hepatic steatosis. Gallbladder: Surgically absent. Spleen: Unremarkable. Pancreas: Unremarkable. Adrenals: Unremarkable. Kidneys: Unremarkable. Bladder: Unremarkable. Reproductive Organs: Prior hysterectomy. Adnexal regions are unremarkable. Bowel: Evaluation of the bowel loops are limited due to lack of oral and IV contrast. Status post gastrectomy. Rheumatoid changes of the bowel loops. Appendix: Normal. Lymph nodes: No suspicious lymph node enlargement. Vasculature: Mild diffuse atherosclerotic calcifications are noted. Peritoneum / Retroperitoneum: No ascites. No free air. Bones: Slight sclerosis of the bilateral sacroiliac joints, concerning for sacroiliitis. Status post lower lumbar laminectomy with transpedicular screws transverse in L4 and L5 vertebral bodies. CT/Abdomen/Pelvis without Cont IMPRESSION: No evidence of nephrolithiasis or hydronephrosis bilaterally. No inflammatory changes of the bowel loops are demonstrated. Sclerosis of the bilateral sacroiliac joints, concerning for sacroiliitis. One or more dose reduction techniques were used (e.g., Automated exposure contr ol, adjustment of the mA and/or kV according to patient size, use of iterative reconstruction technique). [facility]
[2024-05-12 22:20] VITALS: BMI 43.2
[2024-05-12] MEDS: Morphine 4 MG/ML Syringe IV (22:24)
[2024-05-12] MEDS: Ondansetron 4 MG/2 ML Vial IV (22:24)
[2024-05-12] MEDS: 0.9% Normal Saline (1000mL) 1,000 ML 999 ML IV (22:24)
[2024-05-12] MEDS: Orphenadrine 100 MG Tablet PO (22:24)
[2024-05-12 22:31] LABS: Absolute Lymphocyte Count 4.01 X10^3/uL (0.83-4.51); Absolute Neutrophil Count 6.2 X10^3/uL (2.0-7.7); Basophil# 0.05 X10^3/uL; Basophil% 0.4 % (0-1); Eosinophil# 0.11 X10^3/uL; Hematocrit 37.9 % (37-47); Hemoglobin 12.1 g/dL (12.0-15.0); Lymphocyte # 4.01 X10^3/ul (0.83-4.51); Mean Corp Hgb Conc 31.9 g/dL (32-36); Mean Corpuscular Volume 90.9 fL (81-99); Mean Platelet Vol. 9.5 fl (6.2-12.0); Monocyte# 1.05 X10^3/uL; Monocyte% 9.2 % (0-10); NRBC Flagged by Analyzer 0 % (0-5); Neutrophil # 6.15 X10^3/uL (2.7-7.7); Neutrophil % 53.7 % (47-70); Platelet Count 233 K/mm3 (150-450); RBC Distribution Width CV 14.8 % (11.6-14.6); RBC Distribution Width SD 49.1 fl (35.1-43.9); Red Blood Count 4.17 M/mm3 (4.2-5.4); White Blood Count 11.5 K/mm3 (4.4-11.0)
[2024-05-12 22:49] LABS: Anion Gap 9 (5-15); BUN 18 mg/dL (4-19); BUN/Creat Ratio 11.5 RATIO (10-20); Calcium,Total 8.8 mg/dL (7.6-11.0); Carbon Dioxide 25.8 mmol/L (21.0-32.0); Chloride 107 mmol/L (98-108); Creatinine, Serum 1.59 mg/dL (0.70-1.20); EST Glomerular Filtration Rate 37 (>60); Estimated Creatinine Clearance 44.38 ml/min (50-250); Glucose 103 mg/dL (70-99); Potassium 4.1 mmol/L (3.3-5.1); Sodium Level 141 mmol/L (133-145)
[2024-05-12 23:07] VITALS: PULSE 62; RESP 14; O2SAT 95
[2024-05-12 23:15] LABS: Mucous, Urine 0 SEEN /hpf (<or=2+)
[2024-05-12 23:19] LABS: Color, Urine Yellow (Yellow); Glucose, Dipstick Normal (Normal); Ketone-Dipstick Negative (Negative); Leukocyte Esterase-Dipstick 25 /ul (Negative); Nitrite-Dipstick Negative (Negative); Occult Blood-Urine Negative /ul (Negative); Protein-Dipstick Negative (Negative); Urine Bilirubin Dipstick Negative (Negative); Urine Clarity Clear (Clear); Urine Urobilinogen Normal (Normal)
[2024-05-12] MEDS: DiphenhydrAMINE 50 MG/ML Syringe 25 MG IV (23:31)
--- NOTE | 2024-05-12 23:31 | EX.ED.DYSGE1 ---
HPI History of Present Illness Chief Complaint: Abd Pain Informant: patient Narrative Narrative: Patient is a 58-year-old female with type 2 diabetes COPD chronic renal insufficiency and recent diagnosis of upper extremity DVT currently on Eliquis. She states she fell 2 days ago. She states that after the fall she did not note any left-sided abdominal or back pain. She states that other than the fall there is been no trauma or excessive activity. She states today however she noticed pain in the left back/flank region. She states it did not seem to improve with [id number] medication or position changes. She denies fevers chills or dysuria but with concern for potential infection or kidney stone or injury from her recent fall she presents for evaluation Patient also denies any loss of bowel or bladder control or IV drug use PFSH PFS Medical History Type 2 diabetes mellitus Blood glucose elevated Dark urine Anxiety Asthma Pacemaker Hypertension UTI (urinary tract infection) Pacemaker battery depletion History of tobacco use Hyperkalemia Knee sprain Post-menopausal Cancer Arthritis Walker as ambulation aid Uses wheelchair High cholesterol Back pain Injury of back Migraine headache Dietary restriction History of IBS Smoker CPAP (continuous positive airway pressure) dependence COPD (chronic obstructive pulmonary disease) Emphysema, unspecified Leg cramps History of pain when walking History of edema History of echocardiogram History of stress test Cardiology follow-up encounter History of CHF (congestive heart failure) Chest pain Osteopenia (~10/2022) Lumbar radiculopathy Debility Leukocytosis Health care maintenance Pain of left thumb Polypharmacy Encephalopathy CHI (closed head injury) Bacteria in urine Health care maintenance Muscle spasm Tobacco use disorder, continuous Encounter for screening for malignant neoplasm of lung in current smoker with 30 pack year history or greater Osteoarthritis Greater trochanteric bursitis of left hip Infected dental carries Atherosclerotic heart disease of [place] coronary artery without angina pectoris Monomorphic ventricular tachycardia Hyperlipidemia Intermittent palpitations Diarrhea ELOY (obstructive sleep apnea) COPD (chronic obstructive pulmonary disease) Polycythemia Primary malignant neuroendocrine tumor of stomach Sacral contusion Low back strain Anxiety and depression Hypothyroidism GERD (gastroesophageal reflux disease) PTSD (post-traumatic stress disorder) Vitamin D deficiency Neuropathy Anemia Essential (primary) hypertension Neuroendocrine neoplasm of stomach Sick sinus syndrome Sinus pause Chronic lower back pain Chronic pain syndrome Tobacco dependence syndrome Familial combined hyperlipidemia Obesity Home Medications ?Medication ?Instructions ?Recorded ?Last Taken ?Type duloxetine 60 mg capsule,delayed 120 mg PO DAILY 05/16/22 04/03/24 History release gabapentin 300 mg capsule 300 mg PO TID 05/16/22 04/03/24 History isosorbide mononitrate 60 mg 60 mg PO QAM #90 tabs 06/13/22 04/03/24 Rx tablet,extended release 24 hr walker (Ultra-Light Rollator misc) #1 ea 10/17/22 Unknown Rx potassium chloride 20 mEq 20 meq PO DAILY 01/30/23 04/03/24 History tablet,extended release(part/cryst) denosumab 60 mg/mL subcutaneous 60 mg subcut [id number] #1 mL 02/15/23 09/09/23 Rx syringe (Prolia) lisinopril 20 mg tablet 20 mg PO DAILY #90 tabs 02/20/23 04/03/24 Rx metoprolol tartrate 100 mg tablet 100 mg PO BID blood pressure, 04/26/23 04/03/24 Rx heart #180 tabs levothyroxine 25 mcg tablet 25 mcg PO DAILY 07/25/23 04/03/24 History magnesium oxide 400 mg (241.3 mg 400 mg PO DAILY 07/25/23 04/03/24 History magnesium) tablet omeprazole 40 mg capsule,delayed 40 mg PO DAILY 07/25/23 04/03/24 History release fenofibrate 54 mg tablet 54 mg PO DAILY #90 tabs 07/31/23 04/03/24 Rx sumatriptan succinate 50 mg tablet See Rx Instructions PO .COMPLEX 08/09/23 Unknown Rx (Imitrex) #10 tabs ondansetron 8 mg disintegrating 8 mg PO Q6H PRN PRN nausea and 09/09/23 04/03/24 History tablet vomiting rosuvastatin 20 mg tablet 20 mg PO QHS 09/09/23 04/02/24 History trazodone 150 mg tablet 150 mg PO QHS 09/09/23 04/02/24 History trazodone 50 mg tablet 50 mg PO QHS 09/09/23 04/02/24 History cyclobenzaprine 10 mg tablet 10 mg PO BID PRN muscle spasm #180 10/29/23 04/03/24 Rx tabs amlodipine 5 mg tablet 5 mg PO BID #60 tabs 02/05/24 04/03/24 Rx buspirone 15 mg tablet 15 mg PO BID 04/03/24 04/03/24 History buspirone 5 mg tablet 5 mg PO BID 04/03/24 Unknown History glimepiride 2 mg tablet 2 mg PO BID #60 tabs 04/20/24 Unknown Rx blood sugar diagnostic (FreeStyle #100 ea 04/21/24 Unknown Rx Lite Strips) blood-glucose meter (FreeStyle #1 ea 04/21/24 Unknown Rx Lite Meter kit) lancets 28 gauge (FreeStyle #200 ea 04/21/24 Unknown Rx Lancets) oxycodone-acetaminophen 5 mg-325 1 tab PO Q8H PRN pain 3 days #10 05/04/24 Unknown Rx mg tablet (Percocet) tabs apixaban 5 mg (74 tabs) tablets in See Rx Instructions PO .COMPLEX 05/05/24 Unknown Rx a dose pack (Eliquis DVT-PE Treat #74 tabs 30D Start) apixaban 5 mg tablet (Eliquis) 5 mg PO BID #180 tabs 05/05/24 Unknown Rx bed rail #1 ea 05/06/24 Unknown Rx clonazepam 0.5 mg tablet 0.5 mg PO 4X/DAY 05/12/24 Unknown History guaifenesin 100 mg/5 mL oral 400 mg PO Q4H 05/12/24 Unknown History liquid (Adult Tussin Chest Congestion) naloxone 4 mg/actuation nasal spray 4 mg intranasal Q3M PRN opioid 05/12/24 Unknown History overdose Allergy/AdvReac Type Severity Reaction Status Date / Time latex Allergy Intermediate skin Verified 05/12/24 21:07 irritation aspirin AdvReac Severe Nausea/Vom/ Verified 05/12/24 21:07 Diarrhea erythromycin base AdvReac Severe Vomiting,di Verified 05/12/24 21:07 (Erythromycin Base) arrhea NSAIDS (Non-Steroidal AdvReac Severe Vomiting,di Verified 05/12/24 21:07 Anti-Inflamma arrhea Family History Daughter Multiple sclerosis Father CAD (coronary artery disease) Heart disease Multiple sclerosis Grandfather Heart disease Uncle Heart disease Aunt No problems noted. Sister Colon cancer Mother Hypertension Surgical History Squamous cell carcinoma History of lumbar fusion History of esophagogastroduodenoscopy (EGD) Status post insertion of spinal cord stimulator History of left heart catheterization (08/17/21) History of colonoscopy Presence of permanent cardiac pacemaker (2013) History of resection of stomach Hx of cholecystectomy History of elbow surgery History of hysterectomy History of appendectomy History of laparotomy history excision neuroendocrine tumor Social History Smoking Status: Current some day smoker tobacco type: cigarettes Tobacco: How many years used: 30 how long ago did patient quit smoking: A few months ago second hand exposure: Yes alcohol intake: never substance use type: does not use caffeine: Yes Type: carbonated beverages Number of servings: 1 and coffee Number of servings: 2 what type of physical activity do you participate in: none ivania/mosque: None seatbelt use: always do you feel safe at home: Yes ROS ROS ED Constitutional Constitutional ED: Denies chills or fever(s) Eyes Eyes: Denies change in vision ENT ENT ED: Denies sore throat Cardiovascular Cardiovascular: Denies chest pain Respiratory/Chest Respiratory/Chest: Denies cough or dyspnea Gastrointestinal Gastrointestinal: Denies abdominal pain, diarrhea, nausea or vomiting Genitourinary Genitourinary ED: Denies dysuria or hematuria Musculoskeletal Musculoskeletal: Reports back pain Integumentary Denies Abrasions or rash Neurologic Neurologic: Denies headache(s) Hematologic/Lymphatic Hematologic/Lymphatic: Reports easy bleeding and easy bruising EXAM Physical Exam Const Vital Signs: 05/12/24 21:08 05/12/24 23:07 Temperature 97.2 F L Temperature Source Oral Pulse Rate 66 62 Respiratory Rate 16 14 Blood Pressure 124/78 H Blood Pressure Mean 93 Pulse Ox 97 95 Positive well nourished, well developed and obese General Appearance ED: well developed; Negative for pallor Nutritional Appearance: obese HEENT HEENT Narrative: Normocephalic atraumatic Eyes PERRL and EOMs intact bilaterally General Eye ED: Negative for scleral icterus Neck supple Resp normal respiratory effort Resp Narrative: Breath sounds are diminished throughout with faint expiratory wheeze consistent with history of COPD but no signs of respiratory distress Cardio regular rate and regular rhythm Rate: other Other Details: Radial and carotid pulses are equal and symmetric GI non-tender, non-distended and no masses GI Narrative: Abdomen is soft nontender and nondistended with hypoactive bowel sounds. No voluntary guarding or rigidity or pulsatile mass Auscultation: hypoactive bowel sounds Palpation: soft Back/Spine Back/Spine Narrative: No bony deformity or step-off of the thoracic or lumbar spine no midline tenderness to palpation There is mild left CVA pain noted No overlying soft tissue changes to suggest trauma or infection No saddle anesthesia. Negative straight leg raise. No clonus or Babinski. Patellar reflexes are plus 1 out of 4 bilaterally Extremity normal to inspection Neuro oriented x3, CN's II-XII intact bilaterally and no sensory deficits noted Sensorium / Orientation: alert Motor Exam: strength 5/5 throughout Psych mental status grossly normal Skin no rashes or lesions noted General Skin Exam: Negative for jaundice or pallor MDM MDM MDM Narrative Medical decision making narrative: Patient presented to the ER with stable vitals. She reported left-sided back pain that occurred a few days after her recent fall. With concern for UTI versus pyelonephritis versus kidney stone versus kidney laceration versus musculoskeletal low back pain I did elect to perform basic laboratory studies with urine and noncontrast CT. patient's creatinine is 1.59 which chart review reveals is at her baseline and consistent with her history of chronic renal disease. Urine shows +2 bacteria but there is contamination with epithelial cells and her nitrite is negative as well as white blood cells indicating this is most likely contamination and I will not place her on antibiotics but simply send the urine for culture. As the CT scan does not reveal any signs of acute bony injury or signs of kidney stone or laceration or hydronephrosis there is no need for further evaluation and patient is otherwise safe for discharge and can continue the medication she has at home for symptomatic care History & Record Review Discussion w/independent historian: Patient Lab Data Attestation: I reviewed the patient's lab results. Labs: Laboratory Results - last 24 hr 05/12/24 05/12/24 20:20 23:10 WBC 11.5 H RBC 4.17 L Hgb 12.1 Hct 37.9 MCV 90.9 MCH 29.0 MCHC 31.9 L RDW Std Deviation 49.1 H RDW Coeff of Ross 14.8 H Plt Count 233 MPV 9.5 Immature Gran % (Auto) 0.700 Neut % (Auto) 53.7 Lymph % (Auto) 35.0 Murray % (Auto) 9.2 Eos % (Auto) 1.0 Baso % (Auto) 0.4 Absolute Neuts (auto) 6.2 Absolute Lymphs (auto) 4.01 Nucleated RBC % 0 Sodium 141 Potassium 4.1 Chloride 107 Carbon Dioxide 25.8 Anion Gap 9 BUN 18 Creatinine 1.59 H Estim Creat Clear Calc 44.38 L Est GFR (MDRD) Non-Af 37 L BUN/Creatinine Ratio 11.5 Glucose 103 H Calcium 8.8 Urine Color Yellow Urine Clarity Clear Urine pH 6.0 Ur Specific [place] 1.010 Urine Protein Negative Urine Glucose (UA) Normal Urine Ketones Negative Urine Occult Blood Negative Urine Nitrite Negative Urine Bilirubin Negative Urine Urobilinogen Normal Ur Leukocyte Esterase 25 H Urine RBC 0-5 SEEN Urine WBC 0-5 SEEN Ur Squamous Epith Cells 5-10 SEEN Urine Bacteria 2+ Urine Mucus 0 SEEN Radiography Diagnostic Testing: Clinical Impression(s) from Imaging Studies Abdomen/Pelvis CT 05/12/24 22:09 IMPRESSION: No evidence of nephrolithiasis or hydronephrosis bilaterally. No inflammatory changes of the bowel loops are demonstrated. Sclerosis of the bilateral sacroiliac joints, concerning for sacroiliitis. One or more dose reduction techniques were used (e.g., Automated exposure control, adjustment of the mA and/or kV according to patient size, use of iterative reconstruction technique). Reading Location: [facility] Discharge Plan Triage Chief Complaint: Abd Pain ED Provider: Panda Rowe Dx/Rx/DC Orders Clinical Impression: Left flank pain, Type 2 diabetes mellitus, Essential (primary) hypertension, COPD (chronic obstructive pulmonary disease) Instructions: ED Flank Pain, Uncertain Cause Prescriptions: No Action duloxetine 60 mg capsule,delayed release(DR/EC) 120 mg PO DAILY Rx Instructions: rx by pallative care gabapentin 300 mg capsule 300 mg PO TID Patient Comments: TAKE 1 CAPSULE BY MOUTH THREE TIMES A DAY trazodone 150 mg tablet 150 mg PO QHS Rx Instructions: Take with 50 mg tablet to = 200 mg qhs potassium chloride 20 mEq tablet,ER particles/crystals 20 meq PO DAILY trazodone 50 mg tablet 50 mg PO QHS Rx Instructions: Take with 150 mg tablet to = 200 mg qhs rosuvastatin 20 mg tablet 20 mg PO QHS magnesium oxide 400 mg (241.3 mg magnesium) tablet 400 mg PO DAILY omeprazole 40 mg capsule,delayed release(DR/EC) 40 mg PO DAILY Rx Instructions: TAKE ONE CAPSULE BY MOUTH DAILY FOR STOMACH levothyroxine 25 mcg tablet 25 mcg PO DAILY Rx Instructions: TAKE ONE TABLET BY MOUTH DAILY FOR THYROID ondansetron 8 mg tablet,disintegrating 8 mg PO Q6H PRN PRN (Reason: nausea and vomiting) Rx Instructions: TAKE ONE TABLET BY MOUTH EVERY 6 HOURS NEEDED FOR NAUSEA AND VOMITING buspirone 5 mg tablet 5 mg PO BID buspirone 15 mg tablet 15 mg PO BID oxycodone-acetaminophen [Percocet] 5-325 mg tablet 1 tab PO Q8H PRN (Reason: pain) 3 Days Qty: 10 0RF clonazepam 0.5 mg tablet 0.5 mg PO 4X/DAY Patient Comments: [NO ORIGINAL SIG] naloxone 4 mg/actuation spray,non-aerosol 4 mg intranasal Q3M PRN (Reason: opioid overdose) Rx Instructions: spray 1 dose into ONE nostril; alternate nostrils w each dose until help arrives guaifenesin [Adult Tussin Chest Congestion] 100 mg/5 mL liquid 400 mg PO Q4H isosorbide mononitrate 60 mg tablet extended release 24 hr 60 mg PO QAM Qty: 90 3RF (DME) Ultra-Light Rollator Misc See Rx Instructions .Route Qty: 1 0RF Rx Instructions: As directed Prolia 60 mg/mL syringe 60 mg subcut [id number] Qty: 1 2RF Patient Comments: due for injection lisinopril 20 mg tablet 20 mg PO DAILY Qty: 90 1RF metoprolol tartrate 100 mg tablet 100 mg PO BID Qty: 180 1RF Rx Instructions: TAKE 1 TABLET BY MOUTH TWICE A DAY FOR BLOOD PRESSURE/HEART fenofibrate 54 mg tablet 54 mg PO DAILY Qty: 90 1RF sumatriptan succinate [Imitrex] 50 mg tablet See Rx Instructions PO .COMPLEX Qty: 10 3RF Rx Instructions: take 1 tab at onset of headache; if no relief may repeat 1 tab after at least 2 hrs; max = 4 tabs/24 hr PO cyclobenzaprine 10 mg tablet 10 mg PO BID PRN (Reason: muscle spasm) Qty: 180 1RF amlodipine 5 mg tablet 5 mg PO BID Qty: 60 11RF glimepiride 2 mg tablet 2 mg PO BID Qty: 60 2RF (DME) FreeStyle Lite Strips Strip See Rx Instructions .MEDSUPPLY Qty: 100 3RF Rx Instructions: check blood glucose daily for type 2 DM (DME) blood-glucose meter [FreeStyle Lite Meter] Kit See Rx Instructions .MEDSUPPLY Qty: 1 0RF Rx Instructions: As directed, check blood glucose daily for type 2 DM (DME) lancets [FreeStyle Lancets] 28 gauge misc See Rx Instructions .MEDSUPPLY Qty: 200 3RF Rx Instructions: check blood glucose daily for type 2 DM Eliquis DVT-PE Treat 30D Start 5 mg (74 tabs) tablets,dose pack See Rx Instructions .ROUTE .COMPLEX Qty: 74 0RF Rx Instructions: orally per package directions Eliquis 5 mg tablet 5 mg PO BID Qty: 180 1RF Rx Instructions: Start after completing starter pack (DME) bed rail See Rx Instructions .Route .MEDSUPPLY Qty: 1 0RF Rx Instructions: As directed Primary Care Provider: Charla Wadsworth Referrals: Charla Wadsworth MD [Primary Care Provider] - Activity Restrictions/Additional Instructions: Please follow-up with your family doctor for repeat evaluation and return to the ER should you have any further concerns Print Language: Mexican Disposition Disposition: Home, Self Care
[2024-05-13] LABS: Bacteria 2+ /hpf (None Seen); Red Blood Cells-Urine 0-5 SEEN /hpf (0-5); Squamous Epithelial Cells - UA 5-10 SEEN /hpf (5-10); White Blood Cells 0-5 SEEN /hpf (0-5)
[2024-05-13 01:00] VITALS: BP 121/62; PULSE 61; RESP 14; TEMP 36.8; O2SAT 95
[2024-05-13 03:00] VITALS: BP 122/67; PULSE 61; RESP 16; O2SAT 96
== END 2024-05-13 07:26 | disposition home or self-care (01) ==
PROVIDERS: Emergency Provider Emergency Medicine; PCP Internal Medicine; Visit Provider Emergency Medicine
DX: R10.9 Unspecified abdominal pain (principal); I11.0 Hypertensive heart disease with heart failure; I50.9 Heart failure, unspecified; J43.9 Emphysema, unspecified; E11.40 Type 2 diabetes mellitus with diabetic neuropathy, unspecified; E11.22 Type 2 diabetes mellitus with diabetic chronic kidney disease; I25.10 Atherosclerotic heart disease of native coronary artery without angina pectoris; E78.49 Other hyperlipidemia; E78.00 Pure hypercholesterolemia, unspecified; F17.210 Nicotine dependence, cigarettes, uncomplicated; Z79.899 Other long term (current) drug therapy; Z79.01 Long term (current) use of anticoagulants; Z79.84 Long term (current) use of oral hypoglycemic drugs; Z79.890 Hormone replacement therapy; Z86.718 Personal history of other venous thrombosis and embolism; Z95.0 Presence of cardiac pacemaker
CPT/HCPCS: 74176; 80048; 81001; 85025; 87086; 87088; 96361; 96374; 96375; 99285; A4216; J2405

== ENCOUNTER 2024-05-21 19:22 | Emergency (ER) | payer MEDICARE, MEDICAID, SELFPAY ==
[2024-05-21 19:24] VITALS: BP 135/88; PULSE 77; RESP 15; TEMP 36.4; O2SAT 100
[2024-05-21] MEDS: oxyCODONE 5 MG Tablet 10 MG PO (22:08)
--- NOTE | 2024-05-21 22:08 | US_ITS ---
PROCEDURE: TECHNIQUE: Grayscale and duplex Doppler ultrasound was performed of the deep veins of the bilateral lower extremity from groin to the popliteal fossa including the common femoral vein, femoral vein, popliteal, posterior tibial, and peroneal veins. Images were obtained with and without compression. FINDINGS: Grayscale appearance is normal and demonstrates compressibility of the deep veins. There are no intraluminal filling defects visualized to suggest thrombosis. Duplex Doppler examination shows normal color and spectral dyspnea. Respiratory variation was visualized with a normal response to augmentation. US/Venous Duplex Imag/Sergio Extrem IMPRESSION: No evidence of deep vein thrombosis bilaterally. Reading Location: [facility]
--- NOTE | 2024-05-21 22:58 | EDS_ITS ---
HPI History of Present Illness Chief Complaint: Lower Extremity Injury Informant: patient Narrative Narrative: Patient is a 58-year-old female with past medical history of hypertension hyperlipidemia diabetes COPD and left upper extremity DVT currently on Eliquis. Patient states that she has been having increased pain and swelling in her legs and after seeing her family doctor today there was concern she may have a lower extremity DVT causing her symptoms. Secondary to this she was sent to the ER for evaluation. She states that there has been no recent trauma and she reports she is taking her blood thinner as directed but with concern for repeat blood c lot despite anticoagulation she was sent in for evaluation. [facility] Medical History (Updated 05/22/24 @ 00:[address] Panda Rowe, DO) Diabetes Type 2 diabetes mellitus Blood glucose elevated Dark urine Anxiety Asthma Pacemaker Hypertension UTI (urinary tract infection) Pacemaker battery depletion History of tobacco use Hyperkalemia Knee sprain Post-menopausal Cancer Arthritis Walker as ambulation aid Uses wheelchair High cholesterol Back pain Injury of back Migraine headache Dietary restriction History of IBS Smoker CPAP (continuous positive airway pressure) dependence COPD (chronic obstructive pulmonary disease) Emphysema, unspecified Leg cramps History of pain when walking History of edema History of echocardiogram History of stress test Cardiology follow-up encounter History of CHF (congestive heart failure) Chest pain Osteopenia (~10/2022) Lumbar radiculopathy Debility Leukocytosis Health care maintenance Pain of left thumb Polypharmacy Encephalopathy CHI (closed head injury) Bacteria in urine Health care maintenance Muscle spasm Tobacco use disorder, continuous Encounter for screening for malignant neoplasm of lung in current smoker with 30 pack year history or greater Osteoarthritis Greater trochanteric bursitis of left hip Infected dental carries Atherosclerotic heart disease of [place] coronary artery without angina pectoris Monomorphic ventricular tachycardia Hyperlipidemia Intermittent palpitations Diarrhea ELOY (obstructive sleep apnea) COPD (chronic obstructive pulmonary disease) Polycythemia Primary malignant neuroendocrine tumor of stomach Sacral contusion Low back strain Anxiety and depression Hypothyroidism GERD (gastroesophageal reflux disease) PTSD (post-traumatic stress disorder) Vitamin D deficiency Neuropathy Anemia Essential (primary) hypertension Neuroendocrine neoplasm of stomach Sick sinus syndrome Sinus pause Chronic lower back pain Chronic pain syndrome Tobacco dependence syndrome Familial combined hyperlipidemia Obesity Home Medications ?Medication ?Instructions ?Recorded ?Last Taken ?Type duloxetine 60 mg capsule,delayed 120 mg PO DAILY 05/1604/03/24 History release gabapentin 300 mg capsule 300 mg PO TID 05/16/2204/03 History isosorbide mononitrate 60 mg 60 mg PO QAM #90 tabs 07/3104/03/24 Rx tablet,extended release 24 hr walker (Ultra-Light Rollator misc) #1 ea 10/17/22 Unkn own Rx potassium chloride 20 mEq 20 meq PO DAILY 01/30/23 History tablet,extended release(part/cryst) denosumab 60 mg/mL subcutaneous 60 mg subcut [id number] #1 mL 02/15/23 09/09/23 Rx syringe (Prolia) lisinopril 20 mg tablet 20 mg PO DAILY #90 tabs 02/0804/03/24 Rx metoprolol tartrate 100 mg tablet 100 mg PO BID blood pressure, 04/26/23 04/03/24 Rx heart #180 tabs levothyroxine 25 mcg tablet 25 mcg PO DAILY 07/25/23 0 04/03/24 History magnesium oxide 400 mg (241.3 mg 400 mg PO DAILY 07/2404/03/24 History magnesium) tablet omeprazole 40 mg capsule,delayed 40 mg PO DAILY 04/03/24 History release fenofibrate 54 mg tablet 54 mg PO DAILY #90 tabs 07/1004/03/24 Rx sumatriptan succinate 50 mg tablet See Rx Instructions PO .COMPLEX 08/09/23 Unknown Rx (Imitrex) #10 tabs ondansetron 8 mg disintegrating 8 mg PO Q6H PRN PRN na usea and 09/09/23 04/03/24 History tablet vomiting rosuvastatin 20 mg tablet 20 mg PO QHS 09/09/23 History trazodone 150 mg tablet 150 mg PO QHS 09/09/2304/02 History trazodone 50 mg tablet 50 mg PO QHS 09/09/23 History cyclobenzaprine 10 mg tablet 10 mg PO BID PRN muscle s pasm #180 10/29/23 04/03/24 Rx tabs amlodipine 5 mg tablet 5 mg PO BID #60 tabs 02/04/2 4 04/03/24 Rx buspirone 15 mg tablet 15 mg PO BID 04/03/24 History buspirone 5 mg tablet 5 mg PO BID 04/03/24 Unknown History
--- NOTE | 2024-05-21 22:58 | EX.ED.DYSGE1 ---
HPI History of Present Illness Chief Complaint: Lower Extremity Injury Informant: patient Narrative Narrative: Patient is a 58-year-old female with past medical history of hypertension hyperlipidemia diabetes COPD and left upper extremity DVT currently on Eliquis. Patient states that she has been having increased pain and swelling in her legs and after seeing her family doctor today there was concern she may have a lower extremity DVT causing her symptoms. Secondary to this she was sent to the ER for evaluation. She states that there has been no recent trauma and she reports she is taking her blood thinner as directed but with concern for repeat blood clot despite anticoagulation she was sent in for evaluation. [facility] Medical History (Updated 05/22/24 @ 00:[address] Panda Rowe, DO) Diabetes Type 2 diabetes mellitus Blood glucose elevated Dark urine Anxiety Asthma Pacemaker Hypertension UTI (urinary tract infection) Pacemaker battery depletion History of tobacco use Hyperkalemia Knee sprain Post-menopausal Cancer Arthritis Walker as ambulation aid Uses wheelchair High cholesterol Back pain Injury of back Migraine headache Dietary restriction History of IBS Smoker CPAP (continuous positive airway pressure) dependence COPD (chronic obstructive pulmonary disease) Emphysema, unspecified Leg cramps History of pain when walking History of edema History of echocardiogram History of stress test Cardiology follow-up encounter History of CHF (congestive heart failure) Chest pain Osteopenia (~10/2022) Lumbar radiculopathy Debility Leukocytosis Health care maintenance Pain of left thumb Polypharmacy Encephalopathy CHI (closed head injury) Bacteria in urine Health care maintenance Muscle spasm Tobacco use disorder, continuous Encounter for screening for malignant neoplasm of lung in current smoker with 30 pack year history or greater Osteoarthritis Greater trochanteric bursitis of left hip Infected dental carries Atherosclerotic heart disease of [place] coronary artery without angina pectoris Monomorphic ventricular tachycardia Hyperlipidemia Intermittent palpitations Diarrhea ELOY (obstructive sleep apnea) COPD (chronic obstructive pulmonary disease) Polycythemia Primary malignant neuroendocrine tumor of stomach Sacral contusion Low back strain Anxiety and depression Hypothyroidism GERD (gastroesophageal reflux disease) PTSD (post-traumatic stress disorder) Vitamin D deficiency Neuropathy Anemia Essential (primary) hypertension Neuroendocrine neoplasm of stomach Sick sinus syndrome Sinus pause Chronic lower back pain Chronic pain syndrome Tobacco dependence syndrome Familial combined hyperlipidemia Obesity Home Medications ?Medication ?Instructions ?Recorded ?Last Taken ?Type duloxetine 60 mg capsule,delayed 120 mg PO DAILY 05/16/22 04/03/24 History release gabapentin 300 mg capsule 300 mg PO TID 05/16/22 04/03/24 History isosorbide mononitrate 60 mg 60 mg PO QAM #90 tabs 06/13/22 04/03/24 Rx tablet,extended release 24 hr walker (Ultra-Light Rollator misc) #1 ea 10/17/22 Unknown Rx potassium chloride 20 mEq 20 meq PO DAILY 01/30/23 04/03/24 History tablet,extended release(part/cryst) denosumab 60 mg/mL subcutaneous 60 mg subcut [id number] #1 mL 02/15/23 09/09/23 Rx syringe (Prolia) lisinopril 20 mg tablet 20 mg PO DAILY #90 tabs 02/20/23 04/03/24 Rx metoprolol tartrate 100 mg tablet 100 mg PO BID blood pressure, 04/26/23 04/03/24 Rx heart #180 tabs levothyroxine 25 mcg tablet 25 mcg PO DAILY 07/25/23 04/03/24 History magnesium oxide 400 mg (241.3 mg 400 mg PO DAILY 07/25/23 04/03/24 History magnesium) tablet omeprazole 40 mg capsule,delayed 40 mg PO DAILY 07/25/23 04/03/24 History release fenofibrate 54 mg tablet 54 mg PO DAILY #90 tabs 07/31/23 04/03/24 Rx sumatriptan succinate 50 mg tablet See Rx Instructions PO .COMPLEX 08/09/23 Unknown Rx (Imitrex) #10 tabs ondansetron 8 mg disintegrating 8 mg PO Q6H PRN PRN nausea and 09/09/23 04/03/24 History tablet vomiting rosuvastatin 20 mg tablet 20 mg PO QHS 09/09/23 04/02/24 History trazodone 150 mg tablet 150 mg PO QHS 09/09/23 04/02/24 History trazodone 50 mg tablet 50 mg PO QHS 09/09/23 04/02/24 History cyclobenzaprine 10 mg tablet 10 mg PO BID PRN muscle spasm #180 10/29/23 04/03/24 Rx tabs amlodipine 5 mg tablet 5 mg PO BID #60 tabs 02/05/24 04/03/24 Rx buspirone 15 mg tablet 15 mg PO BID 04/03/24 04/03/24 History buspirone 5 mg tablet 5 mg PO BID 04/03/24 Unknown History glimepiride 2 mg tablet 2 mg PO BID #60 tabs 04/20/24 Unknown Rx blood sugar diagnostic (FreeStyle #100 ea 04/21/24 Unknown Rx Lite Strips) blood-glucose meter (FreeStyle #1 ea 04/21/24 Unknown Rx Lite Meter kit) lancets 28 gauge (FreeStyle #200 ea 04/21/24 Unknown Rx Lancets) oxycodone-acetaminophen 5 mg-325 1 tab PO Q8H PRN pain 3 days #10 05/04/24 Unknown Rx mg tablet (Percocet) tabs apixaban 5 mg (74 tabs) tablets in See Rx Instructions PO .COMPLEX 05/05/24 Unknown Rx a dose pack (Eliquis DVT-PE Treat #74 tabs 30D Start) apixaban 5 mg tablet (Eliquis) 5 mg PO BID #180 tabs 05/05/24 Unknown Rx bed rail #1 ea 05/06/24 Unknown Rx clonazepam 0.5 mg tablet 0.5 mg PO 4X/DAY 05/12/24 Unknown History guaifenesin 100 mg/5 mL oral 400 mg PO Q4H 05/12/24 Unknown History liquid (Adult Tussin Chest Congestion) naloxone 4 mg/actuation nasal spray 4 mg intranasal Q3M PRN opioid 05/12/24 Unknown History overdose Allergy/AdvReac Type Severity Reaction Status Date / Time latex Allergy Intermediate skin Verified 05/21/24 19:28 irritation aspirin AdvReac Severe Nausea/Vom/ Verified 05/21/24 19:28 Diarrhea erythromycin base AdvReac Severe Vomiting,di Verified 05/21/24 19:28 (Erythromycin Base) arrhea NSAIDS (Non-Steroidal AdvReac Severe Vomiting,di Verified 05/21/24 19:28 Anti-Inflamma arrhea Family History Daughter Multiple sclerosis Father CAD (coronary artery disease) Heart disease Multiple sclerosis Grandfather Heart disease Uncle Heart disease Aunt No problems noted. Sister Colon cancer Mother Hypertension Surgical History Squamous cell carcinoma History of lumbar fusion History of esophagogastroduodenoscopy (EGD) Status post insertion of spinal cord stimulator History of left heart catheterization (08/17/21) History of colonoscopy Presence of permanent cardiac pacemaker (2013) History of resection of stomach Hx of cholecystectomy History of elbow surgery History of hysterectomy History of appendectomy History of laparotomy history excision neuroendocrine tumor Social History Smoking Status: Current some day smoker tobacco type: cigarettes Tobacco: How many years used: 30 how long ago did patient quit smoking: A few months ago second hand exposure: Yes alcohol intake: never substance use type: does not use caffeine: Yes Type: carbonated beverages Number of servings: 1 and coffee Number of servings: 2 what type of physical activity do you participate in: none ivania/gnosticist: None seatbelt use: always do you feel safe at home: Yes ROS ROS ED Constitutional Constitutional ED: Denies chills or fever(s) Eyes Eyes: Denies change in vision ENT ENT ED: Denies sore throat Cardiovascular Cardiovascular: Denies chest pain Respiratory/Chest Respiratory/Chest: Denies cough or dyspnea Gastrointestinal Gastrointestinal: Denies abdominal pain, diarrhea, nausea or vomiting Genitourinary Genitourinary ED: Denies dysuria or hematuria Musculoskeletal Musculoskeletal: Reports other Details: Positive bilateral leg pain Integumentary Denies rash Neurologic Neurologic: Denies headache(s) Hematologic/Lymphatic Hematologic/Lymphatic: Reports easy bleeding and easy bruising EXAM Physical Exam Const Vital Signs: 05/21/24 19:24 05/21/24 23:25 Temperature 97.6 F L 98 F Temperature Source Temporal Pulse Rate 77 68 Respiratory Rate 15 17 Blood Pressure 135/88 H 130/74 H Blood Pressure Mean 103 92 Pulse Ox 100 97 Oxygen Delivery Method Room Air Positive well nourished, well developed and obese General Appearance ED: well developed Nutritional Appearance: obese HEENT HEENT Narrative: Normocephalic atraumatic Eyes PERRL and EOMs intact bilaterally General Eye ED: Negative for scleral icterus Neck supple and no JVD Resp normal respiratory effort and clear to auscultation bilaterally Cardio regular rate and regular rhythm Rate: other Other Details: Radial and carotid pulses are equal and symmetric Extremity Extremity Narrative: Patient has +1 pitting edema to the bilateral lower extremities that is equal and symmetric No asymmetric edema. Negative Homans' sign bilaterally No overlying soft tissue changes to suggest trauma or infection Compartments are soft and compressible going against compartment syndrome Neuro oriented x3, CN's II-XII intact bilaterally and no sensory deficits noted Sensorium / Orientation: alert Psych Psych Narrative: Patient has a flat affect Skin no rashes or lesions noted Skin Narrative: No overlying soft tissue changes to suggest trauma or infection MDM MDM MDM Narrative Medical decision making narrative: Patient arrived to the ER with stable vitals. She denied any recent trauma and states she has been taking her blood thinner medication as directed. However she had concern that her increased leg pain and swelling could be due to a new onset DVT. Physical exam did not show findings concerning for cellulitis or abscess or compartment syndrome. There was no physical exam findings to suggest a bony injury such as fracture or dislocation and therefore I felt no need for labs or imaging studies other than a venous duplex to rule out new onset DVT. Bilateral venous duplex was obtained which was negative for clot which does correlate with her exam and therefore patient is otherwise safe for discharge as vitals are stable she is in no signs respiratory distress and does not have any signs of compartment syndrome or secondary infection. History & Record Review Discussion w/independent historian: Patient Radiography Diagnostic Testing: Clinical Impression(s) from Imaging Studies Venous Duplex 05/21/24 22:08 IMPRESSION: No evidence of deep vein thrombosis bilaterally. Reading Location: [facility] Discharge Plan Triage Chief Complaint: Lower Extremity Injury ED Provider: Panda Rowe Dx/Rx/DC Orders Clinical Impression: Peripheral edema, Leg pain, Essential (primary) hypertension, Type 2 diabetes mellitus, COPD (chronic obstructive pulmonary disease) Instructions: ED Peripheral Edema, Bilateral Prescriptions: No Action duloxetine 60 mg capsule,delayed release(DR/EC) 120 mg PO DAILY Rx Instructions: rx by pallative care gabapentin 300 mg capsule 300 mg PO TID Patient Comments: TAKE 1 CAPSULE BY MOUTH THREE TIMES A DAY trazodone 150 mg tablet 150 mg PO QHS Rx Instructions: Take with 50 mg tablet to = 200 mg qhs potassium chloride 20 mEq tablet,ER particles/crystals 20 meq PO DAILY trazodone 50 mg tablet 50 mg PO QHS Rx Instructions: Take with 150 mg tablet to = 200 mg qhs rosuvastatin 20 mg tablet 20 mg PO QHS magnesium oxide 400 mg (241.3 mg magnesium) tablet 400 mg PO DAILY omeprazole 40 mg capsule,delayed release(DR/EC) 40 mg PO DAILY Rx Instructions: TAKE ONE CAPSULE BY MOUTH DAILY FOR STOMACH levothyroxine 25 mcg tablet 25 mcg PO DAILY Rx Instructions: TAKE ONE TABLET BY MOUTH DAILY FOR THYROID ondansetron 8 mg tablet,disintegrating 8 mg PO Q6H PRN PRN (Reason: nausea and vomiting) Rx Instructions: TAKE ONE TABLET BY MOUTH EVERY 6 HOURS NEEDED FOR NAUSEA AND VOMITING buspirone 5 mg tablet 5 mg PO BID buspirone 15 mg tablet 15 mg PO BID oxycodone-acetaminophen [Percocet] 5-325 mg tablet 1 tab PO Q8H PRN (Reason: pain) 3 Days Qty: 10 0RF clonazepam 0.5 mg tablet 0.5 mg PO 4X/DAY Patient Comments: [NO ORIGINAL SIG] naloxone 4 mg/actuation spray,non-aerosol 4 mg intranasal Q3M PRN (Reason: opioid overdose) Rx Instructions: spray 1 dose into ONE nostril; alternate nostrils w each dose until help arrives guaifenesin [Adult Tussin Chest Congestion] 100 mg/5 mL liquid 400 mg PO Q4H isosorbide mononitrate 60 mg tablet extended release 24 hr 60 mg PO QAM Qty: 90 3RF (DME) Ultra-Light Rollator Misc See Rx Instructions .Route Qty: 1 0RF Rx Instructions: As directed Prolia 60 mg/mL syringe 60 mg subcut [id number] Qty: 1 2RF Patient Comments: due for injection lisinopril 20 mg tablet 20 mg PO DAILY Qty: 90 1RF metoprolol tartrate 100 mg tablet 100 mg PO BID Qty: 180 1RF Rx Instructions: TAKE 1 TABLET BY MOUTH TWICE A DAY FOR BLOOD PRESSURE/HEART fenofibrate 54 mg tablet 54 mg PO DAILY Qty: 90 1RF sumatriptan succinate [Imitrex] 50 mg tablet See Rx Instructions PO .COMPLEX Qty: 10 3RF Rx Instructions: take 1 tab at onset of headache; if no relief may repeat 1 tab after at least 2 hrs; max = 4 tabs/24 hr PO cyclobenzaprine 10 mg tablet 10 mg PO BID PRN (Reason: muscle spasm) Qty: 180 1RF amlodipine 5 mg tablet 5 mg PO BID Qty: 60 11RF glimepiride 2 mg tablet 2 mg PO BID Qty: 60 2RF (DME) FreeStyle Lite Strips Strip See Rx Instructions .MEDSUPPLY Qty: 100 3RF Rx Instructions: check blood glucose daily for type 2 DM (DME) blood-glucose meter [FreeStyle Lite Meter] Kit See Rx Instructions .MEDSUPPLY Qty: 1 0RF Rx Instructions: As directed, check blood glucose daily for type 2 DM (DME) lancets [FreeStyle Lancets] 28 gauge misc See Rx Instructions .MEDSUPPLY Qty: 200 3RF Rx Instructions: check blood glucose daily for type 2 DM Eliquis DVT-PE Treat 30D Start 5 mg (74 tabs) tablets,dose pack See Rx Instructions .ROUTE .COMPLEX Qty: 74 0RF Rx Instructions: orally per package directions Eliquis 5 mg tablet 5 mg PO BID Qty: 180 1RF Rx Instructions: Start after completing starter pack (DME) bed rail See Rx Instructions .Route .MEDSUPPLY Qty: 1 0RF Rx Instructions: As directed Primary Care Provider: Charla Wadsworth Referrals: Charla Wadsworth MD [Primary Care Provider] - Activity Restrictions/Additional Instructions: Your ultrasound/venous duplex did not show any signs of blood clot in your right or left leg. Continue your Eliquis as directed by your doctor because of the blood clot in your left arm and return to the ER should you have any further concerns Print Language: Hebrew Disposition Disposition: Home, Self Care Discharge Date/Time: 05/22/24 00:23
[2024-05-21 23:25] VITALS: BP 130/74; PULSE 68; RESP 17; TEMP 36.6; O2SAT 97
== END 2024-05-22 00:23 | disposition home or self-care (01) ==
PROVIDERS: Emergency Provider Emergency Medicine; PCP Internal Medicine; Visit Provider Emergency Medicine
DX: R60.0 Localized edema (principal); I11.0 Hypertensive heart disease with heart failure; I50.9 Heart failure, unspecified; J43.9 Emphysema, unspecified; E11.40 Type 2 diabetes mellitus with diabetic neuropathy, unspecified; M79.604 Pain in right leg; M79.605 Pain in left leg; I25.10 Atherosclerotic heart disease of native coronary artery without angina pectoris; E78.00 Pure hypercholesterolemia, unspecified; E78.49 Other hyperlipidemia; F17.210 Nicotine dependence, cigarettes, uncomplicated; Z79.01 Long term (current) use of anticoagulants; Z79.890 Hormone replacement therapy; Z79.899 Other long term (current) drug therapy; Z86.718 Personal history of other venous thrombosis and embolism; Z95.0 Presence of cardiac pacemaker
CPT/HCPCS: 93970; 99285

== ENCOUNTER → 2024-06-11 | Outpatient (CLI) | payer MEDICARE, MEDICAID, SELFPAY ==
[2024-06-11 11:19] LABS: Absolute Lymphocyte Count 3.53 X10^3/uL (0.83-4.51); Absolute Neutrophil Count 6.1 X10^3/uL (2.0-7.7); Basophil# 0.05 X10^3/uL; Basophil% 0.5 % (0-1); Eosinophils% 2.8 % (0-5); Hematocrit 42.1 % (37-47); Hemoglobin 13.7 g/dL (12.0-15.0); Lymphocyte # 3.53 X10^3/ul (0.83-4.51); Lymphocyte % 32.7 % (19-41); Mean Corp Hgb Conc 32.5 g/dL (32-36); Mean Corpuscular Hgb 28.7 pg (27.0-32.0); Mean Corpuscular Volume 88.1 fL (81-99); Mean Platelet Vol. 9.6 fl (6.2-12.0); Monocyte% 7.4 % (0-10); NRBC Flagged by Analyzer 0 % (0-5); Neutrophil # 6.06 X10^3/uL (2.7-7.7); Platelet Count 229 K/mm3 (150-450); RBC Distribution Width SD 45.2 fl (35.1-43.9); Red Blood Count 4.78 M/mm3 (4.2-5.4); White Blood Count 10.8 K/mm3 (4.4-11.0)
[2024-06-11 15:10] LABS: Pro- Brain NATRIURETIC PEPTIDE 65 pg/mL (<=900)
[2024-06-11 15:16] LABS: Anion Gap 12 (5-15); BUN 22 mg/dL (4-19); Calcium,Total 9.5 mg/dL (7.6-11.0); Carbon Dioxide 23.2 mmol/L (21.0-32.0); Chloride 107 mmol/L (98-108); EST Glomerular Filtration Rate 52 (>60); Glucose 112 mg/dL (70-99); Potassium 4.9 mmol/L (3.3-5.1); Sodium Level 141 mmol/L (133-145)
== END | disposition home or self-care (01) ==
LOC: LAB 10:38
PROVIDERS: PCP Internal Medicine; Referring Provider Nurse Practitioner Gerontology; Visit Provider Nurse Practitioner Gerontology
DX: R06.09 Other forms of dyspnea (principal); R53.83 Other fatigue
CPT/HCPCS: 36415; 80048; 83880; 84443; 85025

== ENCOUNTER 2024-06-13 18:31 | Emergency (ER) | payer MEDICARE, MEDICAID, SELFPAY ==
[2024-06-13 18:31] VITALS: BP 130/90; PULSE 68; RESP 20; TEMP 37.1; O2SAT 97; BMI 41.8
--- NOTE | 2024-06-13 18:42 | RAD_ITS ---
PROCEDURE: SCAPULA 06/13/2024 REASON FOR EXAM: TRAUMA TECHNIQUE: 2 view(s) of the right shoulder COMPARISON: None FINDINGS: Bones: No acute fracture. No dislocation. Joints: Normal alignment of the acromioclavicular and glenohumeral joints. Soft tissues: Soft tissues are unremarkable. Other: RAD/Scapula IMPRESSION: NO ACUTE FRACTURE OR DISLOCATION. Reading Location: [facility]
--- NOTE | 2024-06-13 18:42 | CT_ITS ---
PROCEDURE: SPINE THORACIC WITHOUT CONTRAS REASON FOR EXAM: TRAUMA TECHNIQUE: Thoracic spine CT without contrast. Coronal and Sagittal reconstruction series were provided. One or more dose reduction techniques were used (e.g., Automated exposure control, adjustment of the mA and/or kV according to patient size, use of iterative reconstruction technique). RADIATION DOSE SUMMARY: CTDlvol: 26 mGy DLP: 996 mGycm COMPARISON: None FINDINGS: Alignment: Unremarkable Bones: Suspected fracture of T8 vertebral body, likely chronic. Please correlate clinically. The remaining thoracic vertebral body heights are preserved. Mild anterior vertebral body osteophyte formation. Discs: Multilevel narrowing of the intervertebral disc spaces. Soft Tissues: Unremarkable. Other: Spinal stimulating hardware is demonstrated. CT/Spine Thoracic without Contras IMPRESSION: Heterogeneous appearance of the T8 vertebral body, suspicious for fracture like ly chronic. Please correlate clinically. If clinically indicated MRI of the thoracic spine may be helpful for further reny cterization. Degenerative changes of the thoracic spine. Reading Location: [facility]
--- NOTE | 2024-06-13 18:43 | ED.VIS.BACK ---
HPI History of Present Illness Chief Complaint: Back Narrative Narrative: 58-year-old female past medical history of chronic low back pain for which she takes Percocet, presents via EMS status post fall yesterday. She states she was standing in her bathroom, and her legs buckled and became weak. She fell and hit her mid back against the bathtub as she was standing in front of the sink. She denies hitting her head or loss of consciousness. She now has right scapular pain and pain when she moves her right arm as well as midthoracic back pain. She denies other injuries. She complains of the mid back pain and right scapular pain especially when she moves her right arm. [facility] Medical History Diabetes Type 2 diabetes mellitus Blood glucose elevated Dark urine Anxiety Asthma Pacemaker Hypertension UTI (urinary tract infection) Pacemaker battery depletion History of tobacco use Hyperkalemia Knee sprain Post-menopausal Cancer Arthritis Walker as ambulation aid Uses wheelchair High cholesterol Back pain Injury of back Migraine headache Dietary restriction History of IBS Smoker CPAP (continuous positive airway pressure) dependence COPD (chronic obstructive pulmonary disease) Emphysema, unspecified Leg cramps History of pain when walking History of edema History of echocardiogram History of stress test Cardiology follow-up encounter History of CHF (congestive heart failure) Chest pain Osteopenia (~10/2022) Lumbar radiculopathy Debility Leukocytosis Health care maintenance Pain of left thumb Polypharmacy Encephalopathy CHI (closed head injury) Bacteria in urine Health care maintenance Muscle spasm Tobacco use disorder, continuous Encounter for screening for malignant neoplasm of lung in current smoker with 30 pack year history or greater Osteoarthritis Greater trochanteric bursitis of left hip Infected dental carries Atherosclerotic heart disease of [place] coronary artery without angina pectoris Monomorphic ventricular tachycardia Hyperlipidemia Intermittent palpitations Diarrhea ELOY (obstructive sleep apnea) COPD (chronic obstructive pulmonary disease) Polycythemia Primary malignant neuroendocrine tumor of stomach Sacral contusion Low back strain Anxiety and depression Hypothyroidism GERD (gastroesophageal reflux disease) PTSD (post-traumatic stress disorder) Vitamin D deficiency Neuropathy Anemia Essential (primary) hypertension Neuroendocrine neoplasm of stomach Sick sinus syndrome Sinus pause Chronic lower back pain Chronic pain syndrome Tobacco dependence syndrome Familial combined hyperlipidemia Obesity Home Medications ?Medication ?Instructions ?Recorded ?Last Taken ?Type duloxetine 60 mg capsule,delayed 120 mg PO DAILY 05/16/22 04/03/24 History release gabapentin 300 mg capsule 300 mg PO TID 05/16/22 04/03/24 History isosorbide mononitrate 60 mg 60 mg PO QAM #90 tabs 06/13/22 04/03/24 Rx tablet,extended release 24 hr walker (Ultra-Light Rollator misc) #1 ea 10/17/22 Unknown Rx potassium chloride 20 mEq 20 meq PO DAILY 01/30/23 04/03/24 History tablet,extended release(part/cryst) denosumab 60 mg/mL subcutaneous 60 mg subcut [id number] #1 mL 02/15/23 09/09/23 Rx syringe (Prolia) lisinopril 20 mg tablet 20 mg PO DAILY #90 tabs 02/20/23 04/03/24 Rx metoprolol tartrate 100 mg tablet 100 mg PO BID blood pressure, 04/26/23 04/03/24 Rx heart #180 tabs levothyroxine 25 mcg tablet 25 mcg PO DAILY 07/25/23 04/03/24 History magnesium oxide 400 mg (241.3 mg 400 mg PO DAILY 07/25/23 04/03/24 History magnesium) tablet omeprazole 40 mg capsule,delayed 40 mg PO DAILY 07/25/23 04/03/24 History release fenofibrate 54 mg tablet 54 mg PO DAILY #90 tabs 07/31/23 04/03/24 Rx sumatriptan succinate 50 mg tablet See Rx Instructions PO .COMPLEX 08/09/23 Unknown Rx (Imitrex) #10 tabs ondansetron 8 mg disintegrating 8 mg PO Q6H PRN PRN nausea and 09/09/23 04/03/24 History tablet vomiting rosuvastatin 20 mg tablet 20 mg PO QHS 09/09/23 04/02/24 History trazodone 150 mg tablet 150 mg PO QHS 09/09/23 04/02/24 History trazodone 50 mg tablet 50 mg PO QHS 09/09/23 04/02/24 History cyclobenzaprine 10 mg tablet 10 mg PO BID PRN muscle spasm #180 10/29/23 04/03/24 Rx tabs amlodipine 5 mg tablet 5 mg PO BID #60 tabs 02/05/24 04/03/24 Rx buspirone 15 mg tablet 15 mg PO BID 04/03/24 04/03/24 History buspirone 5 mg tablet 5 mg PO BID 04/03/24 Unknown History glimepiride 2 mg tablet 2 mg PO BID #60 tabs 04/20/24 Unknown Rx blood sugar diagnostic (FreeStyle #100 ea 04/21/24 Unknown Rx Lite Strips) blood-glucose meter (FreeStyle #1 ea 04/21/24 Unknown Rx Lite Meter kit) lancets 28 gauge (FreeStyle #200 ea 04/21/24 Unknown Rx Lancets) oxycodone-acetaminophen 5 mg-325 1 tab PO Q8H PRN pain 3 days #10 05/04/24 Unknown Rx mg tablet (Percocet) tabs apixaban 5 mg tablet (Eliquis) 5 mg PO BID #180 tabs 05/05/24 Unknown Rx bed rail #1 ea 05/06/24 Unknown Rx clonazepam 0.5 mg tablet 0.5 mg PO 4X/DAY 05/12/24 Unknown History guaifenesin 100 mg/5 mL oral 400 mg PO Q4H 05/12/24 Unknown History liquid (Adult Tussin Chest Congestion) naloxone 4 mg/actuation nasal spray 4 mg intranasal Q3M PRN opioid 05/12/24 Unknown History overdose Wheelchair with leg rest / lifts #1 ea 06/04/24 Unknown Rx Allergy/AdvReac Type Severity Reaction Status Date / Time latex Allergy Intermediate skin Verified 06/13/24 18:31 irritation aspirin AdvReac Severe Nausea/Vom/ Verified 06/13/24 18:31 Diarrhea erythromycin base AdvReac Severe Vomiting,di Verified 06/13/24 18:31 (Erythromycin Base) arrhea NSAIDS (Non-Steroidal AdvReac Severe Vomiting,di Verified 06/13/24 18:31 Anti-Inflamma arrhea Family History Daughter Multiple sclerosis Father CAD (coronary artery disease) Heart disease Multiple sclerosis Grandfather Heart disease Uncle Heart disease Aunt No problems noted. Sister Colon cancer Mother Hypertension Surgical History Squamous cell carcinoma History of lumbar fusion History of esophagogastroduodenoscopy (EGD) Status post insertion of spinal cord stimulator History of left heart catheterization (08/17/21) History of colonoscopy Presence of permanent cardiac pacemaker (2013) History of resection of stomach Hx of cholecystectomy History of elbow surgery History of hysterectomy History of appendectomy History of laparotomy history excision neuroendocrine tumor Social History Smoking Status: Current some day smoker tobacco type: cigarettes Tobacco: How many years used: 30 how long ago did patient quit smoking: A few months ago second hand exposure: Yes alcohol intake: never substance use type: does not use caffeine: Yes Type: carbonated beverages Number of servings: 1 and coffee Number of servings: 2 what type of physical activity do you participate in: none ivania/restorationism: None seatbelt use: always do you feel safe at home: Yes ROS ROS ED ROS Narrative Review of systems positive for right scapular pain and right thoracic mid back pain. No fevers or chills, no hitting of her head, no loss of consciousness. Pain in right scapular area worse with movement of her right arm. Pain in back also worse with movement. EXAM Physical Exam Narrative Exam Narrative: GCS 15. ABCs are intact. HEENT examination reveals PERRL, EOMI. Neck soft and supple without vertebral point tenderness or bony step-off. Full range of motion of neck without pain. Cardiovascular examination reveals a regular rate and rhythm. No crepitance, no rib pain. Lungs are clear to auscultation bilaterally. Abdomen soft and nontender. Inspection of the thoracic back does reveal diffuse tenderness in the spinal and paraspinal area of the thoracic back. No step-off noted. Positive tenderness to palpation right scapula, no crepitance. Neurovascularly intact to right upper extremity with palpable radial pulse. Full range of motion of right shoulder. Const Vital Signs: 06/13/24 18:31 Temperature 98.8 F Temperature Source Oral Pulse Rate 68 Respiratory Rate 20 H Blood Pressure 130/90 H Blood Pressure Mean 103 Pulse Ox 97 Oxygen Delivery Method Room Air MDM MDM MDM Narrative Medical decision making narrative: Differential diagnosis includes but not limited to thoracic spine fracture versus contusion versus scapular fracture versus contusion. I have low clinical suspicion for shoulder dislocation given her full range of motion. She has an allergy to NSAIDs. She was given 1 oxycodone tablet here as well as 1 Flexeril tablet. I did review her previous EMR and she does have a care plan from approximately 5 years ago, where she has had multiple visits for pain related symptoms. On my individual interpretation of the x-ray of the right scapula, there is no evidence of acute fracture. I reviewed the radiology report which confirms my independent interpretation. I reviewed the radiology report of the CT of the thoracic spine. There is probable chronic fracture of the T8 vertebra given its heterogenicity. At this point in time, patient had complained to the RN that she was having chest pain. EKG was obtained and interpreted by myself independently as normal sinus rhythm at 66 bpm without ectopy or acute ST changes. No STEMI. I do not feel that she needs laboratory work and she had CT of the cervical spine. Upon repeat examination, she states she is not having chest pain and feels that it is coming more from her back. Given her chronic back pain, she continue her Percocet. She was given 1 dose of intramuscular morphine prior to discharge. She was told that further pain management should come from her pain management doctor Dr. Abernathy. I feel she can be discharged to follow-up. Disposition is discharged home in stable condition. History & Record Review Discussion w/independent historian: Patient Radiography Diagnostic Testing: Clinical Impression(s) from Imaging Studies Scapula X-Ray 06/13/24 18:42 IMPRESSION: NO ACUTE FRACTURE OR DISLOCATION. Reading Location: [facility] Thoracic Spine CT 06/13/24 18:42 IMPRESSION: Heterogeneous appearance of the T8 vertebral body, suspicious for fracture likely chronic. Please correlate clinically. If clinically indicated MRI of the thoracic spine may be helpful for further characterization. Degenerative changes of the thoracic spine. Reading Location: [facility] Discharge Plan Triage Chief Complaint: Back ED Provider: Gigi Barton Dx/Rx/DC Orders Clinical Impression: Fall, Acute thoracic back pain Instructions: ED Back Pain (Acute or Chronic), ED Back Contusion Prescriptions: No Action duloxetine 60 mg capsule,delayed release(DR/EC) 120 mg PO DAILY Rx Instructions: rx by pallative care gabapentin 300 mg capsule 300 mg PO TID Patient Comments: TAKE 1 CAPSULE BY MOUTH THREE TIMES A DAY trazodone 150 mg tablet 150 mg PO QHS Rx Instructions: Take with 50 mg tablet to = 200 mg qhs potassium chloride 20 mEq tablet,ER particles/crystals 20 meq PO DAILY trazodone 50 mg tablet 50 mg PO QHS Rx Instructions: Take with 150 mg tablet to = 200 mg qhs rosuvastatin 20 mg tablet 20 mg PO QHS magnesium oxide 400 mg (241.3 mg magnesium) tablet 400 mg PO DAILY omeprazole 40 mg capsule,delayed release(DR/EC) 40 mg PO DAILY Rx Instructions: TAKE ONE CAPSULE BY MOUTH DAILY FOR STOMACH levothyroxine 25 mcg tablet 25 mcg PO DAILY Rx Instructions: TAKE ONE TABLET BY MOUTH DAILY FOR THYROID ondansetron 8 mg tablet,disintegrating 8 mg PO Q6H PRN PRN (Reason: nausea and vomiting) Rx Instructions: TAKE ONE TABLET BY MOUTH EVERY 6 HOURS NEEDED FOR NAUSEA AND VOMITING buspirone 5 mg tablet 5 mg PO BID buspirone 15 mg tablet 15 mg PO BID oxycodone-acetaminophen [Percocet] 5-325 mg tablet 1 tab PO Q8H PRN (Reason: pain) 3 Days Qty: 10 0RF clonazepam 0.5 mg tablet 0.5 mg PO 4X/DAY Patient Comments: [NO ORIGINAL SIG] naloxone 4 mg/actuation spray,non-aerosol 4 mg intranasal Q3M PRN (Reason: opioid overdose) Rx Instructions: spray 1 dose into ONE nostril; alternate nostrils w each dose until help arrives guaifenesin [Adult Tussin Chest Congestion] 100 mg/5 mL liquid 400 mg PO Q4H isosorbide mononitrate 60 mg tablet extended release 24 hr 60 mg PO QAM Qty: 90 3RF (DME) Ultra-Light Rollator Misc See Rx Instructions .Route Qty: 1 0RF Rx Instructions: As directed Prolia 60 mg/mL syringe 60 mg subcut [id number] Qty: 1 2RF Patient Comments: due for injection lisinopril 20 mg tablet 20 mg PO DAILY Qty: 90 1RF metoprolol tartrate 100 mg tablet 100 mg PO BID Qty: 180 1RF Rx Instructions: TAKE 1 TABLET BY MOUTH TWICE A DAY FOR BLOOD PRESSURE/HEART fenofibrate 54 mg tablet 54 mg PO DAILY Qty: 90 1RF sumatriptan succinate [Imitrex] 50 mg tablet See Rx Instructions PO .COMPLEX Qty: 10 3RF Rx Instructions: take 1 tab at onset of headache; if no relief may repeat 1 tab after at least 2 hrs; max = 4 tabs/24 hr PO cyclobenzaprine 10 mg tablet 10 mg PO BID PRN (Reason: muscle spasm) Qty: 180 1RF amlodipine 5 mg tablet 5 mg PO BID Qty: 60 11RF glimepiride 2 mg tablet 2 mg PO BID Qty: 60 2RF (DME) FreeStyle Lite Strips Strip See Rx Instructions .MEDSUPPLY Qty: 100 3RF Rx Instructions: check blood glucose daily for type 2 DM (DME) blood-glucose meter [FreeStyle Lite Meter] Kit See Rx Instructions .MEDSUPPLY Qty: 1 0RF Rx Instructions: As directed, check blood glucose daily for type 2 DM (DME) lancets [FreeStyle Lancets] 28 gauge misc See Rx Instructions .MEDSUPPLY Qty: 200 3RF Rx Instructions: check blood glucose daily for type 2 DM Eliquis 5 mg tablet 5 mg PO BID Qty: 180 1RF Rx Instructions: Start after completing starter pack (DME) bed rail See Rx Instructions .Route .MEDSUPPLY Qty: 1 0RF Rx Instructions: As directed (DME) Wheelchair with leg rest / lifts See Rx Instructions .Route .MEDSUPPLY Qty: 1 0RF Rx Instructions: For daily use / mobility purposes Primary Care Provider: Charla Wadsworth Referrals: Charla Wadsworth MD [Primary Care Provider] - Mainor Abernathy MD [Med Staff - Active Staff] - As soon as possible Activity Restrictions/Additional Instructions: Continue your Percocet as directed for pain. Follow-up with your pain management physician as soon as possible. Print Language: Divehi Disposition Disposition: Home, Self Care
[2024-06-13] MEDS: cycloBENZAPRine HCl 10 MG Tablet PO (18:48)
[2024-06-13] MEDS: oxyCODONE 5 MG Tablet PO (18:48)
--- NOTE | 2024-06-13 19:15 | EKG12_ITS ---
Test Reason : CP Blood Pressure : */* mmHG Vent. Rate : 66 BPM Atrial Rate : 66 BPM P-R Int : 180 ms QRS Dur : 86 ms QT Int : 460 ms P-R-T Axes : 26 54 60 degrees QTcB Int : 482 ms Normal sinus rhythm Prolonged QT Abnormal ECG Confirmed by CHERI GAUTAM, NURA ([id number]), senior editor OTIS RUIZ ([id number]) on 06/15/2024 6:01:17 AM Referred By: Confirmed By: NURA ALONZO MD
--- NOTE | 2024-06-13 19:21 | ED.RN ---
notified MD about new developing chest pain. order for EKG, placed on radiographer cardiac catheterization.
[2024-06-13] MEDS: Morphine 4 MG/ML Syringe IV (19:47)
[2024-06-13 19:51] VITALS: BP 144/79; PULSE 68; RESP 25; TEMP 36.2; O2SAT 94
== END 2024-06-13 20:28 | disposition home or self-care (01) ==
PROVIDERS: Emergency Provider Emergency Medicine; PCP Internal Medicine; Visit Provider Emergency Medicine
DX: M54.6 Pain in thoracic spine (principal); I11.0 Hypertensive heart disease with heart failure; I50.9 Heart failure, unspecified; J43.9 Emphysema, unspecified; E11.40 Type 2 diabetes mellitus with diabetic neuropathy, unspecified; M79.601 Pain in right arm; W01.198A Fall on same level from slipping, tripping and stumbling with subsequent striking against other object, initial encounter; M54.50 Low back pain, unspecified; G89.29 Other chronic pain; E78.49 Other hyperlipidemia; E78.00 Pure hypercholesterolemia, unspecified; M25.511 Pain in right shoulder; R07.9 Chest pain, unspecified; I25.10 Atherosclerotic heart disease of native coronary artery without angina pectoris; E03.9 Hypothyroidism, unspecified; F17.210 Nicotine dependence, cigarettes, uncomplicated; Z79.01 Long term (current) use of anticoagulants; Z79.84 Long term (current) use of oral hypoglycemic drugs; Z79.890 Hormone replacement therapy; Z79.899 Other long term (current) drug therapy; Z90.710 Acquired absence of both cervix and uterus
CPT/HCPCS: 72128; 73010; 93005; 96374; 99285

== ENCOUNTER → 2024-06-26 | Outpatient (CLI) | payer MEDICARE, MEDICAID, SELFPAY ==
--- NOTE | 2024-06-26 07:16 | CDU_ITS ---
Reason For Study Reason For Study: Dizziness Rt. Velocities/BP Lt. Velocities/BP Prox CCA 86.4/20.4 cm/sec. Prox CCA 76.1/20.4 cm/sec. Mid CCA 76.5/17.1 cm/sec. Mid CCA 65.8/11.9 cm/sec. Dist CCA 66.3/16.8 cm/sec. Dist CCA 66.7/19.5 cm/sec. Prox ICA 57.3/18.1 cm/sec. Prox ICA 47.1/10.5 cm/sec. Mid ICA 101.4/37.7 cm/sec. Mid ICA 45.9/20.6 cm/sec. Dist ICA 71.1/24.8 cm/sec. Dist ICA 53.7/26.7 cm/sec. Rt. ICA/CCA = 1.3. Lt. ICA/CCA = 0.8. Prox ECA 89.1/14.5 cm/sec. Prox ECA 55.5/10.1 cm/sec. Rt. Vert. 38.9/13.2 cm/sec. Lt. Vert. 34.6/12.5 cm/sec. Right Extracranial There is no significant atherosclerotic plaque noted in the right common carotid artery. There is no significant atherosclerotic plaque noted in the right internal carotid artery. There is no significant atherosclerotic plaque noted in the right external carotid artery. Antegrade flow is noted in the right vertebral artery. Left Extracranial There is no significant atherosclerotic plaque noted in the left common carotid artery. There is no significant atherosclerotic plaque noted in the left internal carotid artery. There is no significant atherosclerotic plaque noted in the left external carotid artery. Antegrade flow is noted in the left vertebral artery. Procedure Carotid Duplex [id number]. This is a Carotid Duplex examination using B-mode, color flow and specral Doppler. The exam was diagnostic. Exam performed in department. VL/Carotid Duplex Ultrasound Interpretation Summary Normal right extracranial internal carotid. Normal left extracranial internal carotid. Patent and antegrade vertebrals bilaterally. Ordering Physician: Kareen Roman Referring Physician: Charla Wadsworth Performed By: Castro Hoffmann RVT
== END | disposition home or self-care (01) ==
LOC: CVS 07:15
PROVIDERS: PCP Internal Medicine; Referring Provider Nurse Practitioner Gerontology; Visit Provider Nurse Practitioner Gerontology
DX: R42 Dizziness and giddiness (principal)
CPT/HCPCS: 93880

== ENCOUNTER 2024-06-29 17:27 | Emergency (ER) | payer MEDICARE, MEDICAID, SELFPAY ==
[2024-06-29 17:28] VITALS: BP 146/85; PULSE 65; RESP 19; TEMP 37; O2SAT 98; BMI 43.8
--- NOTE | 2024-06-29 17:44 | EX.ED.DYSGE1 ---
HPI History of Present Illness Chief Complaint: Chest Other Detail of Chief Complaint: Back pain/chest pain Informant: patient Onset/Context/Timing Onset: Weeks Context: Sudden Onset Timing: Continuous and Waxes and wanes Quality: Pain Location: Mid upper back midline radiating to the right and left Current Severity: Mild Maximum Severity: Severe Worsened by: Certain movements and deep breathing Relieved by: Nothing Associated Symptoms Associated Symptoms: No other symptoms Narrative Narrative: Patient is a 58-year-old woman. She has history of COPD, obstructive sleep apnea, polycythemia, hyperlipidemia, hypertension, atherosclerotic heart disease and chronic pain. She also has history of osteoarthritis there is no history that I am able to find regarding osteopenia. She denies fever, chills night sweats. She denies cough, shortness of breath difficulty breathing. She denies anterior chest pain. She does endorse nausea with vomiting. This started prior to the pain. She also has chronic diarrhea. She does endorse numbness of the right lower extremity. This has been going on for some time. This is not a new symptom. Prior similar symptoms: Yes Recent Illness/Hospitalization: Yes [facility] Medical History Diabetes Type 2 diabetes mellitus Blood glucose elevated Dark urine Anxiety Asthma Pacemaker Hypertension UTI (urinary tract infection) Pacemaker battery depletion History of tobacco use Hyperkalemia Knee sprain Post-menopausal Cancer Arthritis Walker as ambulation aid Uses wheelchair High cholesterol Back pain Injury of back Migraine headache Dietary restriction History of IBS Smoker CPAP (continuous positive airway pressure) dependence COPD (chronic obstructive pulmonary disease) Emphysema, unspecified Leg cramps History of pain when walking History of edema History of echocardiogram History of stress test Cardiology follow-up encounter History of CHF (congestive heart failure) Chest pain Osteopenia (~10/2022) Lumbar radiculopathy Debility Leukocytosis Health care maintenance Pain of left thumb Polypharmacy Encephalopathy CHI (closed head injury) Bacteria in urine Health care maintenance Muscle spasm Tobacco use disorder, continuous Encounter for screening for malignant neoplasm of lung in current smoker with 30 pack year history or greater Osteoarthritis Greater trochanteric bursitis of left hip Infected dental carries Atherosclerotic heart disease of [place] coronary artery without angina pectoris Monomorphic ventricular tachycardia Hyperlipidemia Intermittent palpitations Diarrhea ELOY (obstructive sleep apnea) COPD (chronic obstructive pulmonary disease) Polycythemia Primary malignant neuroendocrine tumor of stomach Sacral contusion Low back strain Anxiety and depression Hypothyroidism GERD (gastroesophageal reflux disease) PTSD (post-traumatic stress disorder) Vitamin D deficiency Neuropathy Anemia Essential (primary) hypertension Neuroendocrine neoplasm of stomach Sick sinus syndrome Sinus pause Chronic lower back pain Chronic pain syndrome Tobacco dependence syndrome Familial combined hyperlipidemia Obesity Home Medications ?Medication ?Instructions ?Recorded ?Last Taken ?Type duloxetine 60 mg capsule,delayed 120 mg PO DAILY 05/16/22 04/03/24 History release gabapentin 300 mg capsule 300 mg PO TID 05/16/22 04/03/24 History isosorbide mononitrate 60 mg 60 mg PO QAM #90 tabs 06/13/22 04/03/24 Rx tablet,extended release 24 hr walker (Ultra-Light Rollator misc) #1 ea 10/17/22 Unknown Rx potassium chloride 20 mEq 20 meq PO DAILY 01/30/23 04/03/24 History tablet,extended release(part/cryst) denosumab 60 mg/mL subcutaneous 60 mg subcut [id number] #1 mL 02/15/23 09/09/23 Rx syringe (Prolia) lisinopril 20 mg tablet 20 mg PO DAILY #90 tabs 02/20/23 04/03/24 Rx metoprolol tartrate 100 mg tablet 100 mg PO BID blood pressure, 04/26/23 04/03/24 Rx heart #180 tabs levothyroxine 25 mcg tablet 25 mcg PO DAILY 07/25/23 04/03/24 History magnesium oxide 400 mg (241.3 mg 400 mg PO DAILY 07/25/23 04/03/24 History magnesium) tablet omeprazole 40 mg capsule,delayed 40 mg PO DAILY 07/25/23 04/03/24 History release fenofibrate 54 mg tablet 54 mg PO DAILY #90 tabs 07/31/23 04/03/24 Rx sumatriptan succinate 50 mg tablet See Rx Instructions PO .COMPLEX 08/09/23 Unknown Rx (Imitrex) #10 tabs ondansetron 8 mg disintegrating 8 mg PO Q6H PRN PRN nausea and 09/09/23 04/03/24 History tablet vomiting rosuvastatin 20 mg tablet 20 mg PO QHS 09/09/23 04/02/24 History trazodone 150 mg tablet 150 mg PO QHS 09/09/23 04/02/24 History trazodone 50 mg tablet 50 mg PO QHS 09/09/23 04/02/24 History cyclobenzaprine 10 mg tablet 10 mg PO BID PRN muscle spasm #180 10/29/23 04/03/24 Rx tabs amlodipine 5 mg tablet 5 mg PO BID #60 tabs 02/05/24 04/03/24 Rx buspirone 15 mg tablet 15 mg PO BID 04/03/24 04/03/24 History buspirone 5 mg tablet 5 mg PO BID 04/03/24 Unknown History glimepiride 2 mg tablet 2 mg PO BID #60 tabs 04/20/24 Unknown Rx blood sugar diagnostic (FreeStyle #100 ea 04/21/24 Unknown Rx Lite Strips) blood-glucose meter (FreeStyle #1 ea 04/21/24 Unknown Rx Lite Meter kit) lancets 28 gauge (FreeStyle #200 ea 04/21/24 Unknown Rx Lancets) oxycodone-acetaminophen 5 mg-325 1 tab PO Q8H PRN pain 3 days #10 05/04/24 Unknown Rx mg tablet (Percocet) tabs apixaban 5 mg tablet (Eliquis) 5 mg PO BID #180 tabs 05/05/24 Unknown Rx bed rail #1 ea 05/06/24 Unknown Rx clonazepam 0.5 mg tablet 0.5 mg PO 4X/DAY 05/12/24 Unknown History guaifenesin 100 mg/5 mL oral 400 mg PO Q4H 05/12/24 Unknown History liquid (Adult Tussin Chest Congestion) naloxone 4 mg/actuation nasal spray 4 mg intranasal Q3M PRN opioid 05/12/24 Unknown History overdose Wheelchair with leg rest / lifts #1 ea 06/26/24 Unknown Rx calcitonin (salmon) 200 1 spray intranasal (ALT) DAILY 06/29/24 Unknown Rx unit/actuation nasal spray #3.7 mL Allergy/AdvReac Type Severity Reaction Status Date / Time latex Allergy Intermediate skin Verified 06/29/24 17:32 irritation aspirin AdvReac Severe Nausea/Vom/ Verified 06/29/24 17:32 Diarrhea erythromycin base AdvReac Severe Vomiting,di Verified 06/29/24 17:32 (Erythromycin Base) arrhea NSAIDS (Non-Steroidal AdvReac Severe Vomiting,di Verified 06/29/24 17:32 Anti-Inflamma arrhea Family History Daughter Multiple sclerosis Father CAD (coronary artery disease) Heart disease Multiple sclerosis Grandfather Heart disease Uncle Heart disease Aunt No problems noted. Sister Colon cancer Mother Hypertension Surgical History Squamous cell carcinoma History of lumbar fusion History of esophagogastroduodenoscopy (EGD) Status post insertion of spinal cord stimulator History of left heart catheterization (08/17/21) History of colonoscopy Presence of permanent cardiac pacemaker (2013) History of resection of stomach Hx of cholecystectomy History of elbow surgery History of hysterectomy History of appendectomy History of laparotomy history excision neuroendocrine tumor Social History Smoking Status: Current some day smoker tobacco type: cigarettes Tobacco: How many years used: 30 how long ago did patient quit smoking: A few months ago second hand exposure: Yes alcohol intake: never substance use type: does not use caffeine: Yes Type: carbonated beverages Number of servings: 1 and coffee Number of servings: 2 what type of physical activity do you participate in: none ivania/voodoo: None seatbelt use: always do you feel safe at home: Yes ROS ROS ED Constitutional Constitutional ED: Denies chills, fever(s), subjective, sweats or weight loss Cardiovascular Cardiovascular: Reports chest pain; Denies orthopnea, palpitations, paroxysmal nocturnal dyspnea or racing heartbeat Respiratory/Chest Respiratory/Chest: Reports dyspnea; Denies cough, dyspnea on exertion, orthopnea or paroxysmal nocturnal dyspnea Gastrointestinal Gastrointestinal: Reports diarrhea, nausea and vomiting; Denies abdominal pain, constipation or melena Genitourinary Genitourinary ED: Denies dysuria, hematuria or urinary frequency Musculoskeletal Musculoskeletal: Reports arthralgias and back pain Integumentary Reports rash Neurologic Neurologic: Reports paresthesias RLE; Denies weakness Hematologic/Lymphatic Hematologic/Lymphatic: Reports systems reviewed and no addt'l complaints, except as documented EXAM Physical Exam Const Vital Signs: 06/29/24 17:28 06/29/24 17:35 Temperature 98.6 F Temperature Source Oral Pulse Rate 65 Respiratory Rate 19 H Respiratory Effort Normal Non-Labored Blood Pressure 146/85 H Blood Pressure Mean 105 Pulse Ox 98 Oxygen Delivery Method Room Air Positive well nourished and well developed Constitutional Narrative: BMI is 43.9. Patient has a depressed affect. General Appearance ED: well developed, NAD and pallor; Negative for cyanotic or diaphoretic HEENT HEENT Narrative: Head is atraumatic normocephalic. Ears normal. Nares patent Eyes PERRL and EOMs intact bilaterally General Eye ED: Negative for pale conjunctiva or scleral icterus Neck no lymphadenopathy, supple and no JVD Chest Wall inspection of chest normal and palpation of chest normal Resp normal respiratory effort and clear to auscultation bilaterally Cardio regular rate, regular rhythm, S1 normal heart sound, S2 normal heart sound and no murmurs Back/Spine no CVA tenderness Extremity normal to inspection Neuro oriented x3, CN's II-XII intact bilaterally and no sensory deficits noted Sensorium / Orientation: alert Psych Mood & Affect: depressed Skin General Skin Exam: pallor MDM MDM MDM Narrative Medical decision making narrative: Patient was diagnosed with a T8 compression fracture on CT performed June 13, 2024. She contacted her pain management physician. She asked if they had called. She was told no. She told her that she was coming in because she could not tolerate the pain. She was not prescribed [place] calcitonin nasal spray. She did take a Percocet at approximately 1500. She does have history of osteoporosis. In light of this we will treat her pain with IV morphine, lidocaine patch and will prescribe calcitonin [place] nasal spray. Will not prescribe NSAIDs because they are is evidence of delayed healing of the vertebrae with NSAIDs. History & Record Review Additional record(s) reviewed:: Prior outpatient record (Documented in the HPI narrative) Treatment and Re-Evaluation :: Patient was reassessed at 1825. She is smiling. She states the pain has improved. She was given additional dose of morphine. She was discharged to home in stable improved condition. Discharge Plan Triage Chief Complaint: Chest Other ED Provider: Virgil Daniels Dx/Rx/DC Orders Clinical Impression: Closed fracture of T8 vertebra, Chest pain, Type 2 diabetes mellitus, Essential (primary) hypertension, Presence of permanent cardiac pacemaker, Osteoarthritis, Chronic pain disorder Instructions: ED Fracture, Vertebral Compression Prescriptions: New calcitonin (salmon) 200 unit/actuation spray,non-aerosol 1 spray intranasal (ALT) DAILY Qty: 3.7 0RF No Action duloxetine 60 mg capsule,delayed release(DR/EC) 120 mg PO DAILY Rx Instructions: rx by pallative care gabapentin 300 mg capsule 300 mg PO TID Patient Comments: TAKE 1 CAPSULE BY MOUTH THREE TIMES A DAY trazodone 150 mg tablet 150 mg PO QHS Rx Instructions: Take with 50 mg tablet to = 200 mg qhs potassium chloride 20 mEq tablet,ER particles/crystals 20 meq PO DAILY trazodone 50 mg tablet 50 mg PO QHS Rx Instructions: Take with 150 mg tablet to = 200 mg qhs rosuvastatin 20 mg tablet 20 mg PO QHS magnesium oxide 400 mg (241.3 mg magnesium) tablet 400 mg PO DAILY omeprazole 40 mg capsule,delayed release(DR/EC) 40 mg PO DAILY Rx Instructions: TAKE ONE CAPSULE BY MOUTH DAILY FOR STOMACH levothyroxine 25 mcg tablet 25 mcg PO DAILY Rx Instructions: TAKE ONE TABLET BY MOUTH DAILY FOR THYROID ondansetron 8 mg tablet,disintegrating 8 mg PO Q6H PRN PRN (Reason: nausea and vomiting) Rx Instructions: TAKE ONE TABLET BY MOUTH EVERY 6 HOURS NEEDED FOR NAUSEA AND VOMITING buspirone 5 mg tablet 5 mg PO BID buspirone 15 mg tablet 15 mg PO BID oxycodone-acetaminophen [Percocet] 5-325 mg tablet 1 tab PO Q8H PRN (Reason: pain) 3 Days Qty: 10 0RF clonazepam 0.5 mg tablet 0.5 mg PO 4X/DAY Patient Comments: [NO ORIGINAL SIG] naloxone 4 mg/actuation spray,non-aerosol 4 mg intranasal Q3M PRN (Reason: opioid overdose) Rx Instructions: spray 1 dose into ONE nostril; alternate nostrils w each dose until help arrives guaifenesin [Adult Tussin Chest Congestion] 100 mg/5 mL liquid 400 mg PO Q4H isosorbide mononitrate 60 mg tablet extended release 24 hr 60 mg PO QAM Qty: 90 3RF (DME) Ultra-Light Rollator Misc See Rx Instructions .Route Qty: 1 0RF Rx Instructions: As directed Prolia 60 mg/mL syringe 60 mg subcut [id number] Qty: 1 2RF Patient Comments: due for injection lisinopril 20 mg tablet 20 mg PO DAILY Qty: 90 1RF metoprolol tartrate 100 mg tablet 100 mg PO BID Qty: 180 1RF Rx Instructions: TAKE 1 TABLET BY MOUTH TWICE A DAY FOR BLOOD PRESSURE/HEART fenofibrate 54 mg tablet 54 mg PO DAILY Qty: 90 1RF sumatriptan succinate [Imitrex] 50 mg tablet See Rx Instructions PO .COMPLEX Qty: 10 3RF Rx Instructions: take 1 tab at onset of headache; if no relief may repeat 1 tab after at least 2 hrs; max = 4 tabs/24 hr PO cyclobenzaprine 10 mg tablet 10 mg PO BID PRN (Reason: muscle spasm) Qty: 180 1RF amlodipine 5 mg tablet 5 mg PO BID Qty: 60 11RF glimepiride 2 mg tablet 2 mg PO BID Qty: 60 2RF (DME) FreeStyle Lite Strips Strip See Rx Instructions .MEDSUPPLY Qty: 100 3RF Rx Instructions: check blood glucose daily for type 2 DM (DME) blood-glucose meter [FreeStyle Lite Meter] Kit See Rx Instructions .MEDSUPPLY Qty: 1 0RF Rx Instructions: As directed, check blood glucose daily for type 2 DM (DME) lancets [FreeStyle Lancets] 28 gauge misc See Rx Instructions .MEDSUPPLY Qty: 200 3RF Rx Instructions: check blood glucose daily for type 2 DM Eliquis 5 mg tablet 5 mg PO BID Qty: 180 1RF Rx Instructions: Start after completing starter pack (DME) bed rail See Rx Instructions .Route .MEDSUPPLY Qty: 1 0RF Rx Instructions: As directed (DME) Wheelchair with leg rest / lifts See Rx Instructions .Route .MEDSUPPLY Qty: 1 0RF Rx Instructions: For daily use / mobility purposes Primary Care Provider: Charla Wadsworth Referrals: Charla Wadsworth MD [Primary Care Provider] - As Needed Print Language: Lao Disposition Disposition: Home, Self Care
[2024-06-29] MEDS: morphine 8 MG/ML Syringe IV (17:51)
[2024-06-29] MEDS: Lidocaine 5% 35GM Tube 1 APPLIC TOPICAL (17:51)
[2024-06-29] MEDS: Ondansetron 4 MG/2 ML Vial IV (17:51)
[2024-06-29] MEDS: Morphine 4 MG/ML Syringe IV (18:42)
[2024-06-29 19:11] VITALS: BP 104/68; PULSE 75; RESP 18; TEMP 36.7; O2SAT 97
== END 2024-06-29 19:21 | disposition home or self-care (01) ==
PROVIDERS: Emergency Provider Emergency Medicine; PCP Internal Medicine; Visit Provider Emergency Medicine
DX: S22.069A Unspecified fracture of T7-T8 vertebra, initial encounter for closed fracture (principal); I11.0 Hypertensive heart disease with heart failure; I50.9 Heart failure, unspecified; J43.9 Emphysema, unspecified; E11.40 Type 2 diabetes mellitus with diabetic neuropathy, unspecified; I25.10 Atherosclerotic heart disease of native coronary artery without angina pectoris; E78.49 Other hyperlipidemia; Z95.0 Presence of cardiac pacemaker; M19.90 Unspecified osteoarthritis, unspecified site; K52.9 Noninfective gastroenteritis and colitis, unspecified; F17.210 Nicotine dependence, cigarettes, uncomplicated; R06.00 Dyspnea, unspecified; D75.1 Secondary polycythemia; G89.29 Other chronic pain; R11.2 Nausea with vomiting, unspecified; X58.XXXA Exposure to other specified factors, initial encounter
CPT/HCPCS: 96374; 96375; 96376; 99285; A4216; J2405

== ENCOUNTER 2024-07-02 14:27 | Emergency (ER) | payer MEDICARE, MEDICAID, SELFPAY ==
[2024-07-02 14:28] VITALS: BP 115/73; PULSE 60; RESP 15; TEMP 37.1; O2SAT 97; BMI 42.6
--- NOTE | 2024-07-02 14:53 | ED.VIS.BACK ---
HPI History of Present Illness Chief Complaint: Back Detail of Chief Complaint: Back pain Informant: patient Narrative Narrative: Patient presents to the emergency room with complaint of back pain that she has had for about 2 to 3 weeks. She complains of upper back pain that radiates through to the front of her chest. Patient states that she fell against the bathtub 2 or 3 weeks ago. At that time she had a visit to the emergency department and had a CT scan that showed a chronic fracture of T8. Patient also in pain management. She sees Dr. Alexander. Patient states last night she had to call for help at the assisted living facility because she could not get up off the couch. Normally she is in a electric wheelchair but can stand and pivot. Patient having a hard time moving her legs today. She tells me she is anticoagulated with Eliquis. Patient states that she is scheduled to have an MRI of her back but it is going to take too long to schedule. Patient states that she has a pacemaker that was replaced a few months ago that is compatible with MRI and also has a spinal stimulator that is compatible with MRI but she has to turn it off with a button that she has. Patient denies loss of bowel or bladder function. [facility] Medical History (Updated 07/02/24 @ 16:05 by Lisa Arnold) Pulmonary embolism Atrial fibrillation Diabetes Type 2 diabetes mellitus Blood glucose elevated Dark urine Anxiety Asthma Pacemaker Hypertension UTI (urinary tract infection) Pacemaker battery depletion History of tobacco use Hyperkalemia Knee sprain Post-menopausal Cancer Arthritis Walker as ambulation aid Uses wheelchair High cholesterol Back pain Injury of back Migraine headache Dietary restriction History of IBS Smoker CPAP (continuous positive airway pressure) dependence COPD (chronic obstructive pulmonary disease) Emphysema, unspecified Leg cramps History of pain when walking History of edema History of echocardiogram History of stress test Cardiology follow-up encounter History of CHF (congestive heart failure) Chest pain Osteopenia (~10/2022) Lumbar radiculopathy Debility Leukocytosis Health care maintenance Pain of left thumb Polypharmacy Encephalopathy CHI (closed head injury) Bacteria in urine Health care maintenance Muscle spasm Tobacco use disorder, continuous Encounter for screening for malignant neoplasm of lung in current smoker with 30 pack year history or greater Osteoarthritis Greater trochanteric bursitis of left hip Infected dental carries Atherosclerotic heart disease of [place] coronary artery without angina pectoris Monomorphic ventricular tachycardia Hyperlipidemia Intermittent palpitations Diarrhea ELOY (obstructive sleep apnea) COPD (chronic obstructive pulmonary disease) Polycythemia Primary malignant neuroendocrine tumor of stomach Sacral contusion Low back strain Anxiety and depression Hypothyroidism GERD (gastroesophageal reflux disease) PTSD (post-traumatic stress disorder) Vitamin D deficiency Neuropathy Anemia Essential (primary) hypertension Neuroendocrine neoplasm of stomach Sick sinus syndrome Sinus pause Chronic lower back pain Chronic pain syndrome Tobacco dependence syndrome Familial combined hyperlipidemia Obesity Home Medications ?Medication ?Instructions ?Recorded ?Last Taken ?Type duloxetine 60 mg capsule,delayed 120 mg PO DAILY 05/16/22 04/03/24 History release gabapentin 300 mg capsule 300 mg PO TID 05/16/22 04/03/24 History isosorbide mononitrate 60 mg 60 mg PO QAM #90 tabs 06/13/22 04/03/24 Rx tablet,extended release 24 hr walker (Ultra-Light Rollator misc) #1 ea 10/17/22 Unknown Rx potassium chloride 20 mEq 20 meq PO DAILY 01/30/23 04/03/24 History tablet,extended release(part/cryst) denosumab 60 mg/mL subcutaneous 60 mg subcut [id number] #1 mL 02/15/23 09/09/23 Rx syringe (Prolia) lisinopril 20 mg tablet 20 mg PO DAILY #90 tabs 02/20/23 04/03/24 Rx metoprolol tartrate 100 mg tablet 100 mg PO BID blood pressure, 04/26/23 04/03/24 Rx heart #180 tabs levothyroxine 25 mcg tablet 25 mcg PO DAILY 07/25/23 04/03/24 History magnesium oxide 400 mg (241.3 mg 400 mg PO DAILY 07/25/23 04/03/24 History magnesium) tablet omeprazole 40 mg capsule,delayed 40 mg PO DAILY 07/25/23 04/03/24 History release fenofibrate 54 mg tablet 54 mg PO DAILY #90 tabs 07/31/23 04/03/24 Rx sumatriptan succinate 50 mg tablet See Rx Instructions PO .COMPLEX 08/09/23 Unknown Rx (Imitrex) #10 tabs ondansetron 8 mg disintegrating 8 mg PO Q6H PRN PRN nausea and 09/09/23 04/03/24 History tablet vomiting rosuvastatin 20 mg tablet 20 mg PO QHS 09/09/23 04/02/24 History trazodone 150 mg tablet 150 mg PO QHS 09/09/23 04/02/24 History trazodone 50 mg tablet 50 mg PO QHS 09/09/23 04/02/24 History cyclobenzaprine 10 mg tablet 10 mg PO BID PRN muscle spasm #180 10/29/23 04/03/24 Rx tabs amlodipine 5 mg tablet 5 mg PO BID #60 tabs 02/05/24 04/03/24 Rx buspirone 15 mg tablet 15 mg PO BID 04/03/24 04/03/24 History buspirone 5 mg tablet 5 mg PO BID 04/03/24 Unknown History glimepiride 2 mg tablet 2 mg PO BID #60 tabs 04/20/24 Unknown Rx blood sugar diagnostic (FreeStyle #100 ea 04/21/24 Unknown Rx Lite Strips) blood-glucose meter (FreeStyle #1 ea 04/21/24 Unknown Rx Lite Meter kit) lancets 28 gauge (FreeStyle #200 ea 04/21/24 Unknown Rx Lancets) oxycodone-acetaminophen 5 mg-325 1 tab PO Q8H PRN pain 3 days #10 05/04/24 Unknown Rx mg tablet (Percocet) tabs apixaban 5 mg tablet (Eliquis) 5 mg PO BID #180 tabs 05/05/24 Unknown Rx bed rail #1 ea 05/06/24 Unknown Rx clonazepam 0.5 mg tablet 0.5 mg PO 4X/DAY 05/12/24 Unknown History guaifenesin 100 mg/5 mL oral 400 mg PO Q4H 05/12/24 Unknown History liquid (Adult Tussin Chest Congestion) naloxone 4 mg/actuation nasal spray 4 mg intranasal Q3M PRN opioid 05/12/24 Unknown History overdose Wheelchair with leg rest / lifts #1 ea 06/26/24 Unknown Rx calcitonin (salmon) 200 1 spray intranasal (ALT) DAILY 06/29/24 Unknown Rx unit/actuation nasal spray #3.7 mL Allergy/AdvReac Type Severity Reaction Status Date / Time latex Allergy Intermediate skin Verified 07/02/24 14:34 irritation aspirin AdvReac Severe Nausea/Vom/ Verified 07/02/24 14:34 Diarrhea erythromycin base AdvReac Severe Vomiting,di Verified 07/02/24 14:34 (Erythromycin Base) arrhea NSAIDS (Non-Steroidal AdvReac Severe Vomiting,di Verified 07/02/24 14:34 Anti-Inflamma arrhea Family History Daughter Multiple sclerosis Father CAD (coronary artery disease) Heart disease Multiple sclerosis Grandfather Heart disease Uncle Heart disease Aunt No problems noted. Sister Colon cancer Mother Hypertension Surgical History Squamous cell carcinoma History of lumbar fusion History of esophagogastroduodenoscopy (EGD) Status post insertion of spinal cord stimulator History of left heart catheterization (08/17/21) History of colonoscopy Presence of permanent cardiac pacemaker (2013) History of resection of stomach Hx of cholecystectomy History of elbow surgery History of hysterectomy History of appendectomy History of laparotomy history excision neuroendocrine tumor Social History (Updated 07/02/24 @ 14:31 by Lis Basilio) household members: none housing: assisted living facility current occupational status: unemployed Smoking Status: Current some day smoker tobacco type: cigarettes Tobacco: How many years used: 30 how long ago did patient quit smoking: A few months ago second hand exposure: Yes alcohol intake: never substance use type: does not use caffeine: Yes Type: carbonated beverages Number of servings: 1 and coffee Number of servings: 2 what type of physical activity do you participate in: none ivania/mormonism: None seatbelt use: always do you feel safe at home: Yes ROS ROS ED Review of Systems ROS Unobtainable: other Constitutional Constitutional ED: Reports lethargy; Denies chills, fever(s), sweats or weight loss Eyes Eyes: Denies blurry vision, change in vision or diplopia ENT ENT ED: Denies rhinorrhea or sore throat Cardiovascular Cardiovascular: Denies chest pain, orthopnea or racing heartbeat Respiratory/Chest Respiratory/Chest: Denies cough, dyspnea, dyspnea on exertion, orthopnea or sputum Gastrointestinal Gastrointestinal: Denies abdominal pain, diarrhea, nausea or vomiting Genitourinary Genitourinary ED: Denies dysuria, hematuria or urinary frequency Musculoskeletal Musculoskeletal: Reports back pain; Denies arthralgias, myalgias or neck pain Integumentary Denies abscess, Abrasions or rash Neurologic Neurologic: Denies headache(s) or weakness Psychiatric Psychiatric: Denies anxiety, depression or suicidal thoughts Endocrine Endocrinology: Denies polydipsia, polyphagia or polyuria Hematologic/Lymphatic Hematologic/Lymphatic: Denies easy bleeding, easy bruising or lymphadenopathy Allergic/Immunologic Allergic/Immunologic ED: Denies mouth swelling, tongue swelling or urticaria EXAM Physical Exam Const Vital Signs: 07/02/24 14:28 Temperature 98.7 F Temperature Source Oral Pulse Rate 60 Respiratory Rate 15 Blood Pressure 115/73 Blood Pressure Mean 87 Pulse Ox 97 Oxygen Delivery Method Room Air Positive well nourished and well developed General Appearance ED: well developed and NAD HEENT Reports TM's clear and moist mucous membranes normocephalic and atraumatic; Negative for trauma or tenderness Tympanic Membrane ED: Yes TM's clear Eyes PERRL and EOMs intact bilaterally General Eye ED: Negative for pale conjunctiva or scleral icterus Neck no lymphadenopathy, supple and no JVD General: Negative for tenderness Chest Wall inspection of chest normal and palpation of chest normal Chest: Negative for tenderness Resp normal respiratory effort and clear to auscultation bilaterally Effort and Inspection: Negative for respiratory distress or pain with movement Auscultation: Negative for rhonchi, wheezes or diminished lung sounds Cardio regular rate, regular rhythm, S1 normal heart sound, S2 normal heart sound and no murmurs Peripheral Pulses: pulses 2+ throughout GI normal to inspection, nondistended, normoactive bowel sounds, soft to palpation, non-tender, non-distended and no masses Back/Spine no CVA tenderness Back/Spine Narrative: Diffuse tenderness over the thoracic and lumbar spine. There is no erythema or warmth noted. She has pain with straight leg raising bilaterally while supine at about 45 degrees. Deep tendon reflexes are diminished bilaterally at the patella and Achilles at +1 and are symmetric. Subtle L5 weakness bilaterally. Extremity normal to inspection General Extremety ED: Negative for edema General Extremity: Negative for edema Neuro oriented x3, CN's II-XII intact bilaterally, no sensory deficits noted and gait normal Sensorium / Orientation: awake, alert, oriented to person, oriented to place and oriented to time Motor Exam: strength 5/5 throughout and strength abnormal Psych mental status grossly normal Skin no rashes or lesions noted and no wounds MDM MDM MDM Narrative Medical decision making narrative: Patient presents with history of chronic back pain with a fall that occurred about 3 weeks ago and now having continued pain since that time. Tells me her legs started feeling more weak last night and today. Pain management attempting to obtain MRI of her back however requiring preauthorization's and [employer] before they can get her in to have her MRI. I discussed case with Dr. 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 Discussed with MRI and they tell me they will not be able to do the MRI today but will require admission to have it done tomorrow. Dr. Alexander stated that the nerve stimulator is MRI compatible and it is documented in the computer that her pacemaker is compatible with MRI as well. Will discuss with hospitalist. I was contacted by dental equipment technician again and told that they will not be able to do the MRI at our facility given that patient has both a pacemaker and a spinal stimulator and it would be off label and I needed to transfer her to another facility where they could do off label imaging. I was told [facility] would be able to do it and we contacted them and was told to try [facility] As patient's had prior studies done there before. Patient is comfortable with plan to go to [facility]. Discussed with transfer line as well as back specialist who recommended that we admit to medicine at their facility and they do have a protocol for obtaining the MRI where she would have to be in the MRI further 30 minutes and then out for 90 minutes then back in. Patient was medicated with morphine and Zofran. She will be transferred to [facility] for definitive care. Concern for possible cord compression although her symptoms have been very progressive over the course of the last 3 to 4 weeks. Patient also on Eliquis and concern for spinal epidural hematoma. Lab Data Attestation: I reviewed the patient's lab results. Labs: Laboratory Results - last 24 hr 07/02/24 15:24 WBC 8.0 RBC 4.70 Hgb 13.5 Hct 41.3 MCV 87.9 MCH 28.7 MCHC 32.7 RDW Std Deviation 43.6 RDW Coeff of Orss 13.6 Plt Count 228 MPV 9.3 Immature Gran % (Auto) 0.500 Neut % (Auto) 50.2 Lymph % (Auto) 40.0 Knott % (Auto) 6.4 Eos % (Auto) 2.5 Baso % (Auto) 0.4 Absolute Neuts (auto) 4.0 Absolute Lymphs (auto) 3.18 Nucleated RBC % 0 Discharge Plan Triage Chief Complaint: Back ED Provider: Kati Burkett Dx/Rx/DC Orders Clinical Impression: Back pain Prescriptions: No Action duloxetine 60 mg capsule,delayed release(DR/EC) 120 mg PO DAILY Rx Instructions: rx by pallative care gabapentin 300 mg capsule 300 mg PO TID Patient Comments: TAKE 1 CAPSULE BY MOUTH THREE TIMES A DAY trazodone 150 mg tablet 150 mg PO QHS Rx Instructions: Take with 50 mg tablet to = 200 mg qhs potassium chloride 20 mEq tablet,ER particles/crystals 20 meq PO DAILY trazodone 50 mg tablet 50 mg PO QHS Rx Instructions: Take with 150 mg tablet to = 200 mg qhs rosuvastatin 20 mg tablet 20 mg PO QHS magnesium oxide 400 mg (241.3 mg magnesium) tablet 400 mg PO DAILY omeprazole 40 mg capsule,delayed release(DR/EC) 40 mg PO DAILY Rx Instructions: TAKE ONE CAPSULE BY MOUTH DAILY FOR STOMACH levothyroxine 25 mcg tablet 25 mcg PO DAILY Rx Instructions: TAKE ONE TABLET BY MOUTH DAILY FOR THYROID ondansetron 8 mg tablet,disintegrating 8 mg PO Q6H PRN PRN (Reason: nausea and vomiting) Rx Instructions: TAKE ONE TABLET BY MOUTH EVERY 6 HOURS NEEDED FOR NAUSEA AND VOMITING calcitonin (salmon) 200 unit/actuation spray,non-aerosol 1 spray intranasal (ALT) DAILY Qty: 3.7 0RF buspirone 5 mg tablet 5 mg PO BID buspirone 15 mg tablet 15 mg PO BID oxycodone-acetaminophen [Percocet] 5-325 mg tablet 1 tab PO Q8H PRN (Reason: pain) 3 Days Qty: 10 0RF clonazepam 0.5 mg tablet 0.5 mg PO 4X/DAY Patient Comments: [NO ORIGINAL SIG] naloxone 4 mg/actuation spray,non-aerosol 4 mg intranasal Q3M PRN (Reason: opioid overdose) Rx Instructions: spray 1 dose into ONE nostril; alternate nostrils w each dose until help arrives guaifenesin [Adult Tussin Chest Congestion] 100 mg/5 mL liquid 400 mg PO Q4H isosorbide mononitrate 60 mg tablet extended release 24 hr 60 mg PO QAM Qty: 90 3RF (DME) Ultra-Light Rollator Misc See Rx Instructions .Route Qty: 1 0RF Rx Instructions: As directed Prolia 60 mg/mL syringe 60 mg subcut [id number] Qty: 1 2RF Patient Comments: due for injection lisinopril 20 mg tablet 20 mg PO DAILY Qty: 90 1RF metoprolol tartrate 100 mg tablet 100 mg PO BID Qty: 180 1RF Rx Instructions: TAKE 1 TABLET BY MOUTH TWICE A DAY FOR BLOOD PRESSURE/HEART fenofibrate 54 mg tablet 54 mg PO DAILY Qty: 90 1RF sumatriptan succinate [Imitrex] 50 mg tablet See Rx Instructions PO .COMPLEX Qty: 10 3RF Rx Instructions: take 1 tab at onset of headache; if no relief may repeat 1 tab after at least 2 hrs; max = 4 tabs/24 hr PO cyclobenzaprine 10 mg tablet 10 mg PO BID PRN (Reason: muscle spasm) Qty: 180 1RF amlodipine 5 mg tablet 5 mg PO BID Qty: 60 11RF glimepiride 2 mg tablet 2 mg PO BID Qty: 60 2RF (DME) FreeStyle Lite Strips Strip See Rx Instructions .MEDSUPPLY Qty: 100 3RF Rx Instructions: check blood glucose daily for type 2 DM (DME) blood-glucose meter [FreeStyle Lite Meter] Kit See Rx Instructions .MEDSUPPLY Qty: 1 0RF Rx Instructions: As directed, check blood glucose daily for type 2 DM (DME) lancets [FreeStyle Lancets] 28 gauge misc See Rx Instructions .MEDSUPPLY Qty: 200 3RF Rx Instructions: check blood glucose daily for type 2 DM Eliquis 5 mg tablet 5 mg PO BID Qty: 180 1RF Rx Instructions: Start after completing starter pack (DME) bed rail See Rx Instructions .Route .MEDSUPPLY Qty: 1 0RF Rx Instructions: As directed (DME) Wheelchair with leg rest / lifts See Rx Instructions .Route .MEDSUPPLY Qty: 1 0RF Rx Instructions: For daily use / mobility purposes Primary Care Provider: Charla Wadsworth Referrals: Charla Wadsworth MD [Primary Care Provider] - Print Language: Greenlandic Disposition Disposition: DC/Tx to Another Type of HCF
[2024-07-02 15:35] LABS: Absolute Lymphocyte Count 3.18 X10^3/uL (0.83-4.51); Basophil# 0.03 X10^3/uL; Basophil% 0.4 % (0-1); Eosinophils% 2.5 % (0-5); Hematocrit 41.3 % (37-47); Hemoglobin 13.5 g/dL (12.0-15.0); Lymphocyte # 3.18 X10^3/ul (0.83-4.51); Mean Corp Hgb Conc 32.7 g/dL (32-36); Mean Corpuscular Hgb 28.7 pg (27.0-32.0); Mean Corpuscular Volume 87.9 fL (81-99); Mean Platelet Vol. 9.3 fl (6.2-12.0); Monocyte# 0.51 X10^3/uL; Monocyte% 6.4 % (0-10); NRBC Flagged by Analyzer 0 % (0-5); Neutrophil # 3.99 X10^3/uL (2.7-7.7); Neutrophil % 50.2 % (47-70); Platelet Count 228 K/mm3 (150-450); RBC Distribution Width CV 13.6 % (11.6-14.6); RBC Distribution Width SD 43.6 fl (35.1-43.9)
[2024-07-02] MEDS: Ondansetron 4 MG/2 ML Vial IV (15:36)
[2024-07-02] MEDS: Morphine 4 MG/ML Syringe IV ×3 (15:37→17:57)
[2024-07-02 17:11] LABS: Anion Gap 10 (5-15); BUN 18 mg/dL (4-19); BUN/Creat Ratio 14.9 RATIO (10-20); Calcium,Total 9.8 mg/dL (7.6-11.0); Carbon Dioxide 25.2 mmol/L (21.0-32.0); Chloride 105 mmol/L (98-108); Creatinine, Serum 1.22 mg/dL (0.70-1.20); EST Glomerular Filtration Rate 51 (>60); Estimated Creatinine Clearance 57.43 ml/min (50-250); Glucose 129 mg/dL (70-99); Potassium 4.5 mmol/L (3.3-5.1); Sodium Level 140 mmol/L (133-145)
--- NOTE | 2024-07-02 18:21 | PCA ---
ACCEPTED @ [facility] AT 2007 JUST WAITING FOR A BED ASSIGNMENT
[2024-07-02 18:28] VITALS: PULSE 63; RESP 16; O2SAT 91
[2024-07-02 22:00] VITALS: BP 128/78; PULSE 78; RESP 18; O2SAT 97
--- NOTE | 2024-07-02 23:07 | PCA ---
PT ACCEPTED [facility] RM [id number] [phone], [facility]
[2024-07-02 23:25] VITALS: BP 116/68; PULSE 72; RESP 14; TEMP 36.8; O2SAT 96
[2024-07-03] MEDS: Morphine 4 MG/ML Syringe IV (00:13)
== END 2024-07-03 00:20 | disposition other institution (70) ==
PROVIDERS: Emergency Provider Emergency Medicine; PCP Internal Medicine; Referring Provider Emergency Medicine; Visit Provider Emergency Medicine
DX: M54.9 Dorsalgia, unspecified (principal); I11.0 Hypertensive heart disease with heart failure; I50.9 Heart failure, unspecified; J43.9 Emphysema, unspecified; I48.91 Unspecified atrial fibrillation; E11.40 Type 2 diabetes mellitus with diabetic neuropathy, unspecified; I25.10 Atherosclerotic heart disease of native coronary artery without angina pectoris; E78.49 Other hyperlipidemia; E78.00 Pure hypercholesterolemia, unspecified; E03.9 Hypothyroidism, unspecified; G89.4 Chronic pain syndrome; F17.210 Nicotine dependence, cigarettes, uncomplicated; Z79.01 Long term (current) use of anticoagulants; Z79.84 Long term (current) use of oral hypoglycemic drugs; Z79.890 Hormone replacement therapy; Z79.899 Other long term (current) drug therapy; Z95.0 Presence of cardiac pacemaker
CPT/HCPCS: 80048; 85025; 96374; 96375; 96376; 99285; A4216; J2405

== ENCOUNTER 2024-07-22 20:14 | Emergency (ER) | payer MEDICARE, MEDICAID, SELFPAY ==
[2024-07-22 20:15] VITALS: BP 113/54; PULSE 72; RESP 18; TEMP 37.4; O2SAT 97; BMI 19.7
--- NOTE | 2024-07-22 21:22 | ED.VIS.FEGU ---
HPI HPI - Female History of Present Illness Chief Complaint: Complaint [facility] Medical History (Updated 07/23/24 @ 00:[address] Chaim Maurer, DO) Hypersomnolence Ambulatory dysfunction Pulmonary embolism Atrial fibrillation Diabetes Type 2 diabetes mellitus Blood glucose elevated Dark urine Anxiety Asthma Pacemaker Hypertension UTI (urinary tract infection) Pacemaker battery depletion History of tobacco use Hyperkalemia Knee sprain Post-menopausal Cancer Arthritis Walker as ambulation aid Uses wheelchair High cholesterol Back pain Injury of back Migraine headache Dietary restriction History of IBS Smoker CPAP (continuous positive airway pressure) dependence COPD (chronic obstructive pulmonary disease) Emphysema, unspecified Leg cramps History of pain when walking History of edema History of echocardiogram History of stress test Cardiology follow-up encounter History of CHF (congestive heart failure) Chest pain Osteopenia (~10/2022) Lumbar radiculopathy Debility Leukocytosis Health care maintenance Pain of left thumb Polypharmacy Encephalopathy CHI (closed head injury) Bacteria in urine Health care maintenance Muscle spasm Tobacco use disorder, continuous Encounter for screening for malignant neoplasm of lung in current smoker with 30 pack year history or greater Osteoarthritis Greater trochanteric bursitis of left hip Infected dental carries Atherosclerotic heart disease of [place] coronary artery without angina pectoris Monomorphic ventricular tachycardia Hyperlipidemia Intermittent palpitations Diarrhea ELOY (obstructive sleep apnea) COPD (chronic obstructive pulmonary disease) Polycythemia Primary malignant neuroendocrine tumor of stomach Sacral contusion Low back strain Anxiety and depression Hypothyroidism GERD (gastroesophageal reflux disease) PTSD (post-traumatic stress disorder) Vitamin D deficiency Neuropathy Anemia Essential (primary) hypertension Neuroendocrine neoplasm of stomach Sick sinus syndrome Sinus pause Chronic lower back pain Chronic pain syndrome Tobacco dependence syndrome Familial combined hyperlipidemia Obesity Home Medications ?Medication ?Instructions ?Recorded ?Last Taken ?Type duloxetine 60 mg capsule,delayed 120 mg PO DAILY 05/16/22 04/03/24 History release gabapentin 300 mg capsule 300 mg PO TID 05/16/22 04/03/24 History isosorbide mononitrate 60 mg 60 mg PO QAM #90 tabs 06/13/22 04/03/24 Rx tablet,extended release 24 hr walker (Ultra-Light Rollator misc) #1 ea 10/17/22 Unknown Rx potassium chloride 20 mEq 20 meq PO DAILY 01/30/23 04/03/24 History tablet,extended release(part/cryst) denosumab 60 mg/mL subcutaneous 60 mg subcut [id number] #1 mL 02/15/23 09/09/23 Rx syringe (Prolia) lisinopril 20 mg tablet 20 mg PO DAILY #90 tabs 02/20/23 04/03/24 Rx metoprolol tartrate 100 mg tablet 100 mg PO BID blood pressure, 04/26/23 04/03/24 Rx heart #180 tabs levothyroxine 25 mcg tablet 25 mcg PO DAILY 07/25/23 04/03/24 History magnesium oxide 400 mg (241.3 mg 400 mg PO DAILY 07/25/23 04/03/24 History magnesium) tablet omeprazole 40 mg capsule,delayed 40 mg PO DAILY 07/25/23 04/03/24 History release fenofibrate 54 mg tablet 54 mg PO DAILY #90 tabs 07/31/23 04/03/24 Rx sumatriptan succinate 50 mg tablet See Rx Instructions PO .COMPLEX 08/09/23 Unknown Rx (Imitrex) #10 tabs ondansetron 8 mg disintegrating 8 mg PO Q6H PRN PRN nausea and 09/09/23 04/03/24 History tablet vomiting rosuvastatin 20 mg tablet 20 mg PO QHS 09/09/23 04/02/24 History trazodone 150 mg tablet 150 mg PO QHS 09/09/23 04/02/24 History trazodone 50 mg tablet 50 mg PO QHS 09/09/23 04/02/24 History cyclobenzaprine 10 mg tablet 10 mg PO BID PRN muscle spasm #180 10/29/23 04/03/24 Rx tabs amlodipine 5 mg tablet 5 mg PO BID #60 tabs 02/05/24 04/03/24 Rx buspirone 15 mg tablet 15 mg PO BID 04/03/24 04/03/24 History buspirone 5 mg tablet 5 mg PO BID 04/03/24 Unknown History glimepiride 2 mg tablet 2 mg PO BID #60 tabs 04/20/24 Unknown Rx blood sugar diagnostic (FreeStyle #100 ea 04/21/24 Unknown Rx Lite Strips) blood-glucose meter (FreeStyle #1 ea 04/21/24 Unknown Rx Lite Meter kit) lancets 28 gauge (FreeStyle #200 ea 04/21/24 Unknown Rx Lancets) oxycodone-acetaminophen 5 mg-325 1 tab PO Q8H PRN pain 3 days #10 05/04/24 Unknown Rx mg tablet (Percocet) tabs apixaban 5 mg tablet (Eliquis) 5 mg PO BID #180 tabs 05/05/24 Unknown Rx bed rail #1 ea 05/06/24 Unknown Rx clonazepam 0.5 mg tablet 0.5 mg PO 4X/DAY 05/12/24 Unknown History guaifenesin 100 mg/5 mL oral 400 mg PO Q4H 05/12/24 Unknown History liquid (Adult Tussin Chest Congestion) naloxone 4 mg/actuation nasal spray 4 mg intranasal Q3M PRN opioid 05/12/24 Unknown History overdose Wheelchair with leg rest / lifts #1 ea 06/26/24 Unknown Rx calcitonin (salmon) 200 1 spray intranasal (ALT) DAILY 06/29/24 Unknown Rx unit/actuation nasal spray #3.7 mL ondansetron 4 mg disintegrating 4 mg PO Q8H PRN PRN Nausea #10 tabs 07/23/24 Unknown Rx tablet Allergy/AdvReac Type Severity Reaction Status Date / Time latex Allergy Intermediate skin Verified 07/22/24 20:17 irritation aspirin AdvReac Severe Nausea/Vom/ Verified 07/22/24 20:17 Diarrhea erythromycin base AdvReac Severe Vomiting,di Verified 07/22/24 20:17 (Erythromycin Base) arrhea NSAIDS (Non-Steroidal AdvReac Severe Vomiting,di Verified 07/22/24 20:17 Anti-Inflamma arrhea Family History Daughter Multiple sclerosis Father CAD (coronary artery disease) Heart disease Multiple sclerosis Grandfather Heart disease Uncle Heart disease Aunt No problems noted. Sister Colon cancer Mother Hypertension Surgical History Squamous cell carcinoma History of lumbar fusion History of esophagogastroduodenoscopy (EGD) Status post insertion of spinal cord stimulator History of left heart catheterization (08/17/21) History of colonoscopy Presence of permanent cardiac pacemaker (2013) History of resection of stomach Hx of cholecystectomy History of elbow surgery History of hysterectomy History of appendectomy History of laparotomy history excision neuroendocrine tumor Social History household members: none housing: assisted living facility current occupational status: unemployed Smoking Status: Current some day smoker tobacco type: cigarettes Tobacco: How many years used: 30 how long ago did patient quit smoking: A few months ago second hand exposure: Yes alcohol intake: never substance use type: does not use caffeine: Yes Type: carbonated beverages Number of servings: 1 and coffee Number of servings: 2 what type of physical activity do you participate in: none ivania/anglican: None seatbelt use: always do you feel safe at home: Yes EXAM Physical Exam Const Vital Signs: 07/22/24 20:15 07/22/24 22:14 Temperature 99.3 F H Temperature Source Oral Pulse Rate 72 101 H Respiratory Rate 18 17 Blood Pressure 113/54 L 159/86 H Blood Pressure Mean 73 110 Pulse Ox 97 97 Oxygen Delivery Method Room Air Room Air MDM MDM MDM Narrative Medical decision making narrative: HISTORY OF PRESENT ILLNESS: Chief complaint: Urinary retention 58 year-old female history of COPD, type 2 diabetes, sick sinus syndrome status post pacemaker, CAD presents with concern for retaining urine. She notes that started the afternoon after seeing her primary care physician. Notes lower abdominal tenderness and decreased urination. No vomiting. No fevers. No diarrhea. No vaginal bleeding or discharge. No urinary complaints endorsed. No back pain. REVIEW OF SYSTEMS: Pertinent positives: Urinary retention Pertinent negatives: Urinary frequency PHYSICAL EXAM: Nursing triage notes reviewed, Vital signs reviewed Constitutional: please see mdm HENT: MMM Eyes: Pupils equal round and reactive to light, Extraocular muscles intact Neck: No stridor, no JVD, full neck ROM Lungs: Clear to auscultation, No wheezing or rales. No increased work of breathing, no conversational dyspnea, no accessory muscle use, no nasal flaring. No respiratory distress noted Heart: Regular rate and rhythm, No murmurs, No rubs and No gallops, 2+ distal pulses (radial, femoral, posterior tibial) in all extremities Abdomen: Soft, there is no tenderness, rigidity, rebound or guarding, no obvious peritoneal signs, no palpable pulsatile abdominal masses, no auscultated abdominal bruit : No CVAT Extremities: No edema Neuro: No new focal neurological deficits, cranial nerves II through XII intact, 5/5 strength in all present extremities. Intact sensation to light touch in all present extremities, 2+ reflexes bilateral patella tendons. Skin: No rash or lesions noted MEDICAL DECISION MAKING: Chief Complaint: please see HPI External records reviewed: Reviewed prior imaging study Factors affecting care: As per [facility] Social determinants of health: none History obtained from others: none Consults: none [facility] Narrative: The patient was initially hemodynamically stable, afebrile and nontoxic-appearing. Exam with lower abdominal TTP I considered the following differential diagnosis: AAA, small bowel obstruction, abdominal perforation, appendicitis, pancreatitis, hepatobiliary pathology (acute cholecystitis), mesenteric ischemia, pathology (ie nephrolithiasis), urinary retention. ALL IMAGES (IF OBTAINED) HAVE BEEN PERSONALLY REVIEWED AND INTERPRETED BY MYSELF. Bladder scan with only 22 cc in the bladder, not consistent with urinary retention CT scan abdomen pelvis shows no evidence of acute surgical pathology, no sign of nephrolithiasis, AAA, obstruction or perforation. CBC without leukocytosis, severe anemia, no thrombocytopenia. BMP at baseline CKD stage III, no significant electrolyte abnormalities LFTs show no evidence of hepatobiliary pathology. Ordered urinalysis however patient provide a sample. She denied any dysuria, hematuria or increased frequency. Fraction of decreased urination. The synthesis of the patient's history, physical exam, labs images suggest no acute life or limb threat etiology. I have with the patient Zofran to treat any nausea encourage more p.o. intake. Strict return precautions were discussed. The patient and/or family, caregivers express understanding. The patient and/or family, caregivers agrees with the plan. Shared decision making: I will have a discussion with the patient and or visitors regarding risk/benefits of further testing or admission. They will be made aware of of the risk/benefits inherent in this decision they will be given the opportunity to voice understanding. Total critical care time today provided was at least 0 minutes. This excludes separately billable procedures. Critical care time (if documented) is secondary to the patient having high probability of clinically significant/life threatening deterioration in the patient's condition which required my urgent intervention. Impression: 1. Lower abdominal pain 2. History of CKD Dispo: Discharge home This note was generated with [employer] dictation software. It may contain incorrect words, spelling, and punctuation that were not noted in review of the chart prior to signing. Lab Data Labs: Laboratory Results - last 24 hr 07/22/24 20:20 WBC 10.9 RBC 4.58 Hgb 13.0 Hct 40.8 MCV 89.1 MCH 28.4 MCHC 31.9 L RDW Std Deviation 44.9 H RDW Coeff of Ross 13.9 Plt Count 269 MPV 10.1 Immature Gran % (Auto) 0.600 Neut % (Auto) 52.8 Lymph % (Auto) 37.0 Edwards % (Auto) 7.3 Eos % (Auto) 1.9 Baso % (Auto) 0.4 Absolute Neuts (auto) 5.7 Absolute Lymphs (auto) 4.02 Nucleated RBC % 0 Sodium 141 Potassium 4.0 Chloride 107 Carbon Dioxide 21.6 Anion Gap 13 BUN 26 H Creatinine 1.42 H Estim Creat Clear Calc 33.40 L Est GFR (MDRD) Non-Af 43 L BUN/Creatinine Ratio 18.0 Glucose 178 H Calcium 9.5 Total Bilirubin 0.17 AST 20 ALT 18 Alkaline Phosphatase 76 Total Protein 7.4 Albumin 4.2 Globulin 3.3 Albumin/Globulin Ratio 1.3 Radiography Diagnostic Testing: Clinical Impression(s) from Imaging Studies Abdomen/Pelvis CT 07/22/24 22:15 IMPRESSION: No acute findings in the abdomen and pelvis. Diffuse steatosis and hepatomegaly. [facility] T[facility] Chief Complaint: Complaint ED Provider: Chaim Maurer Dx/Rx/DC Orders Clinical Impression: Lower abdominal pain, unspecified Instructions: ED Vomiting (Adult) Prescriptions: New ondansetron 4 mg tablet,disintegrating 4 mg PO Q8H PRN PRN (Reason: Nausea) Qty: 10 0RF No Action duloxetine 60 mg capsule,delayed release(DR/EC) 120 mg PO DAILY Rx Instructions: rx by pallative care gabapentin 300 mg capsule 300 mg PO TID Patient Comments: TAKE 1 CAPSULE BY MOUTH THREE TIMES A DAY trazodone 150 mg tablet 150 mg PO QHS Rx Instructions: Take with 50 mg tablet to = 200 mg qhs potassium chloride 20 mEq tablet,ER particles/crystals 20 meq PO DAILY trazodone 50 mg tablet 50 mg PO QHS Rx Instructions: Take with 150 mg tablet to = 200 mg qhs rosuvastatin 20 mg tablet 20 mg PO QHS magnesium oxide 400 mg (241.3 mg magnesium) tablet 400 mg PO DAILY omeprazole 40 mg capsule,delayed release(DR/EC) 40 mg PO DAILY Rx Instructions: TAKE ONE CAPSULE BY MOUTH DAILY FOR STOMACH levothyroxine 25 mcg tablet 25 mcg PO DAILY Rx Instructions: TAKE ONE TABLET BY MOUTH DAILY FOR THYROID ondansetron 8 mg tablet,disintegrating 8 mg PO Q6H PRN PRN (Reason: nausea and vomiting) Rx Instructions: TAKE ONE TABLET BY MOUTH EVERY 6 HOURS NEEDED FOR NAUSEA AND VOMITING calcitonin (salmon) 200 unit/actuation spray,non-aerosol 1 spray intranasal (ALT) DAILY Qty: 3.7 0RF buspirone 5 mg tablet 5 mg PO BID buspirone 15 mg tablet 15 mg PO BID oxycodone-acetaminophen [Percocet] 5-325 mg tablet 1 tab PO Q8H PRN (Reason: pain) 3 Days Qty: 10 0RF clonazepam 0.5 mg tablet 0.5 mg PO 4X/DAY Patient Comments: [NO ORIGINAL SIG] naloxone 4 mg/actuation spray,non-aerosol 4 mg intranasal Q3M PRN (Reason: opioid overdose) Rx Instructions: spray 1 dose into ONE nostril; alternate nostrils w each dose until help arrives guaifenesin [Adult Tussin Chest Congestion] 100 mg/5 mL liquid 400 mg PO Q4H isosorbide mononitrate 60 mg tablet extended release 24 hr 60 mg PO QAM Qty: 90 3RF (DME) Ultra-Light Rollator Misc See Rx Instructions .Route Qty: 1 0RF Rx Instructions: As directed Prolia 60 mg/mL syringe 60 mg subcut [id number] Qty: 1 2RF Patient Comments: due for injection lisinopril 20 mg tablet 20 mg PO DAILY Qty: 90 1RF metoprolol tartrate 100 mg tablet 100 mg PO BID Qty: 180 1RF Rx Instructions: TAKE 1 TABLET BY MOUTH TWICE A DAY FOR BLOOD PRESSURE/HEART fenofibrate 54 mg tablet 54 mg PO DAILY Qty: 90 1RF sumatriptan succinate [Imitrex] 50 mg tablet See Rx Instructions PO .COMPLEX Qty: 10 3RF Rx Instructions: take 1 tab at onset of headache; if no relief may repeat 1 tab after at least 2 hrs; max = 4 tabs/24 hr PO cyclobenzaprine 10 mg tablet 10 mg PO BID PRN (Reason: muscle spasm) Qty: 180 1RF amlodipine 5 mg tablet 5 mg PO BID Qty: 60 11RF glimepiride 2 mg tablet 2 mg PO BID Qty: 60 2RF (DME) FreeStyle Lite Strips Strip See Rx Instructions .MEDSUPPLY Qty: 100 3RF Rx Instructions: check blood glucose daily for type 2 DM (DME) blood-glucose meter [FreeStyle Lite Meter] Kit See Rx Instructions .MEDSUPPLY Qty: 1 0RF Rx Instructions: As directed, check blood glucose daily for type 2 DM (DME) lancets [FreeStyle Lancets] 28 gauge misc See Rx Instructions .MEDSUPPLY Qty: 200 3RF Rx Instructions: check blood glucose daily for type 2 DM Eliquis 5 mg tablet 5 mg PO BID Qty: 180 1RF Rx Instructions: Start after completing starter pack (DME) bed rail See Rx Instructions .Route .MEDSUPPLY Qty: 1 0RF Rx Instructions: As directed (DME) Wheelchair with leg rest / lifts See Rx Instructions .Route .MEDSUPPLY Qty: 1 0RF Rx Instructions: For daily use / mobility purposes Primary Care Provider: Charla Wadsworth Referrals: Charla Wadsworth MD [Primary Care Provider] - Activity Restrictions/Additional Instructions: Thank you for trusting us with your care today! Your labs images were reassuring. No sign of urinary retention. No sign of worsening kidney function. Please take Tylenol (2 pills, 650 mg), ibuprofen (2 pills, 400 mg) every 6 hours as needed for pain and fever control. Please return to the emergency department if your symptoms change or worsen. Please follow with your primary care physician for further outpatient evaluation and management. Print Language: Armenian Disposition Disposition: Home, Self Care
[2024-07-22] MEDS: Ondansetron 4 MG/2 ML Vial IV (21:55)
[2024-07-22] MEDS: 0.9% Normal Saline (1000mL) 1,000 ML 999 ML IV (21:55)
[2024-07-22 22:14] VITALS: BP 159/86; PULSE 101; RESP 17; O2SAT 97
--- NOTE | 2024-07-22 22:15 | CT_ITS ---
PROCEDURE: ABDOMEN/PELVIS W IV CONT ONLY 07/22/2024 REASON FOR EXAM: ABDOMINAL PAIN, NAUSEA AND VOMITING TECHNIQUE: Abdomen and pelvis CT with intravenous contrast. Coronal and Sagittal reconstruction series were provided. PATIENT PREPARATION: Per protocol ORAL CONTRAST TYPE: None. AMOUNT: mL CONTRAST: Omnipaque 350 VOLUME: 100 mL Not Provided Gauge IV One or more dose reduction techniques were used (e.g., Automated exposure control, adjustment of the mA and/or kV according to patient size, use of iterative reconstruction technique. COMPARISON: CT abdomen and pelvis 02/20/2024 and 05/12/2024 FINDINGS: Lung bases: Unremarkable Liver: Diffuse steatosis. No focal lesion. Hepatomegaly, craniocaudal length 19.6 cm. Gallbladder: No ductal dilation. Cholecystectomy. Spleen: Normal size. Pancreas: Normal size without evidence of mass surrounding inflammation or ductal dilation. Adrenals: Unremarkable. Kidneys: Normal renal sizes. No hydronephrosis. Bladder: Unremarkable. Reproductive Organs: No suspicious pelvic mass. Bowel: Mildly distended stomach. No bowel dilation or significant wall thickening. Moderate colonic stool. Appendix is not visualized. Appendix: The appendix is not identified. There is no inflammatory process identified in the right lower quadrant to suggest appendicitis. Lymph nodes: Multiple prominent but nonenlarged by size criteria abdominopelvic lymph nodes. Vasculature: Mild diffuse atherosclerotic calcifications are noted. Peritoneum / Retroperitoneum: No ascites. No pneumoperitoneum. Bones: Postoperative changes L4-L5 posterior fusion. Diffuse sclerosis bilateral sacroiliac joints. Soft tissue: Nerve stimulator along the right retro gluteal region with the lead traversing the dorsal thecal sac. CT/Abdomen/Pelvis W IV Cont ONLY IMPRESSION: No acute findings in the abdomen and pelvis. Diffuse steatosis and hepatomegaly. Reading Location: [facility]
[2024-07-22 22:20] LABS: Absolute Lymphocyte Count 4.02 X10^3/uL (0.83-4.51); Absolute Neutrophil Count 5.7 X10^3/uL (2.0-7.7); Basophil# 0.04 X10^3/uL; Basophil% 0.4 % (0-1); Eosinophil# 0.21 X10^3/uL; Eosinophils% 1.9 % (0-5); Hematocrit 40.8 % (37-47); Lymphocyte # 4.02 X10^3/ul (0.83-4.51); Mean Corp Hgb Conc 31.9 g/dL (32-36); Mean Corpuscular Hgb 28.4 pg (27.0-32.0); Mean Corpuscular Volume 89.1 fL (81-99); Mean Platelet Vol. 10.1 fl (6.2-12.0); Monocyte# 0.79 X10^3/uL; Monocyte% 7.3 % (0-10); NRBC Flagged by Analyzer 0 % (0-5); Neutrophil # 5.73 X10^3/uL (2.7-7.7); Neutrophil % 52.8 % (47-70); Platelet Count 269 K/mm3 (150-450); RBC Distribution Width CV 13.9 % (11.6-14.6); RBC Distribution Width SD 44.9 fl (35.1-43.9); Red Blood Count 4.58 M/mm3 (4.2-5.4); White Blood Count 10.9 K/mm3 (4.4-11.0)
[2024-07-22 22:45] LABS: ALB/GLOB Ratio 1.3 RATIO (0.9-2.4); AST(SGOT) 20 U/L (<=31); Alanine Aminotransfer ALT/SGPT 18 U/L (<=34); Albumin, Serum 4.2 g/dL (3.5-5.0); Alkaline Phosphatase 76 U/L (35-104); Anion Gap 13 (5-15); BUN 26 mg/dL (4-19); Calcium,Total 9.5 mg/dL (7.6-11.0); Carbon Dioxide 21.6 mmol/L (21.0-32.0); Chloride 107 mmol/L (98-108); Creatinine, Serum 1.42 mg/dL (0.70-1.20); EST Glomerular Filtration Rate 43 (>60); Globulin 3.3 g/dL (2.2-4.2); Glucose 178 mg/dL (70-99); Protein, Total 7.4 g/dL (5.9-8.4); Sodium Level 141 mmol/L (133-145); Total Bilirubin 0.17 mg/dL (0.00-1.30)
[2024-07-23 00:03] VITALS: BP 130/81; PULSE 61; RESP 18; TEMP 36.6; O2SAT 93
== END 2024-07-23 02:51 | disposition home or self-care (01) ==
PROVIDERS: Emergency Provider Emergency Medicine; PCP Internal Medicine; Visit Provider Emergency Medicine
DX: R10.30 Lower abdominal pain, unspecified (principal); I13.0 Hypertensive heart and chronic kidney disease with heart failure and stage 1 through stage 4 chronic kidney disease, or unspecified chronic kidney disease; I50.9 Heart failure, unspecified; J43.9 Emphysema, unspecified; E11.40 Type 2 diabetes mellitus with diabetic neuropathy, unspecified; E11.22 Type 2 diabetes mellitus with diabetic chronic kidney disease; I25.10 Atherosclerotic heart disease of native coronary artery without angina pectoris; E78.49 Other hyperlipidemia; N18.9 Chronic kidney disease, unspecified
CPT/HCPCS: 74177; 80053; 85025; 96361; 96374; 99285; Q9967; A4216; J2405

== ENCOUNTER 2024-10-10 15:55 | Emergency (ER) | payer MEDICARE, MEDICAID, SELFPAY ==
[2024-10-10 15:56] VITALS: BP 125/72; PULSE 69; RESP 18; TEMP 37.1; O2SAT 97; BMI 42.3
--- NOTE | 2024-10-10 16:29 | ED.VIS.FALL ---
HPI <JOE Cerna - Last Filed: 10/10/24 20:23> HPI - Fall History of Present Illness Chief Complaint: Fall Narrative Narrative: Patient presenting today with pain to her right hip, right knee, right shoulder, and right clavicle following a mechanical fall that occurred this afternoon. She is currently staying with a friend who recently fell trying to help them out. She normally gets around with an electric wheelchair. She stepped out of her wheelchair and was trying to get her pants on when she lost her balance and fell onto the right side. She denies hitting her head or any LOC. She denies neck pain. She reports that she also fell about a week ago trying to get pants on and got her toe caught and fell. She denies any other injury. [facility] <JOE Cerna - Last Filed: 10/10/24 20:23> [facility] Medical History Diarrhea Hypersomnolence Ambulatory dysfunction Pulmonary embolism Atrial fibrillation Diabetes Type 2 diabetes mellitus Blood glucose elevated Dark urine Anxiety Asthma Pacemaker Hypertension UTI (urinary tract infection) Pacemaker battery depletion History of tobacco use Hyperkalemia Knee sprain Post-menopausal Cancer Arthritis Walker as ambulation aid Uses wheelchair High cholesterol Back pain Injury of back Migraine headache Dietary restriction History of IBS Smoker CPAP (continuous positive airway pressure) dependence COPD (chronic obstructive pulmonary disease) Emphysema, unspecified Leg cramps History of pain when walking History of edema History of echocardiogram History of stress test Cardiology follow-up encounter History of CHF (congestive heart failure) Chest pain Osteopenia (~10/2022) Lumbar radiculopathy Debility Leukocytosis Health care maintenance Pain of left thumb Polypharmacy Encephalopathy CHI (closed head injury) Bacteria in urine Health care maintenance Muscle spasm Tobacco use disorder, continuous Encounter for screening for malignant neoplasm of lung in current smoker with 30 pack year history or greater Osteoarthritis Greater trochanteric bursitis of left hip Infected dental carries Atherosclerotic heart disease of [place] coronary artery without angina pectoris Monomorphic ventricular tachycardia Hyperlipidemia Intermittent palpitations ELOY (obstructive sleep apnea) COPD (chronic obstructive pulmonary disease) Polycythemia Primary malignant neuroendocrine tumor of stomach Sacral contusion Low back strain Anxiety and depression Hypothyroidism GERD (gastroesophageal reflux disease) PTSD (post-traumatic stress disorder) Vitamin D deficiency Neuropathy Anemia Essential (primary) hypertension Neuroendocrine neoplasm of stomach Sick sinus syndrome Sinus pause Chronic lower back pain Chronic pain syndrome Tobacco dependence syndrome Familial combined hyperlipidemia Obesity Home Medications ?Medication ?Instructions ?Recorded ?Last Taken ?Type duloxetine 60 mg capsule,delayed 120 mg PO DAILY 05/16/22 04/03/24 History release gabapentin 300 mg capsule 300 mg PO TID 05/16/22 04/03/24 History isosorbide mononitrate 60 mg 60 mg PO QAM #90 tabs 06/13/22 04/03/24 Rx tablet,extended release 24 hr walker (Ultra-Light Rollator misc) #1 ea 10/17/22 Unknown Rx potassium chloride 20 mEq 20 meq PO DAILY 01/30/23 04/03/24 History tablet,extended release(part/cryst) denosumab 60 mg/mL subcutaneous 60 mg subcut [id number] #1 mL 02/15/23 09/09/23 Rx syringe (Prolia) lisinopril 20 mg tablet 20 mg PO DAILY #90 tabs 02/20/23 04/03/24 Rx metoprolol tartrate 100 mg tablet 100 mg PO BID blood pressure, 04/26/23 04/03/24 Rx heart #180 tabs levothyroxine 25 mcg tablet 25 mcg PO DAILY 07/25/23 04/03/24 History magnesium oxide 400 mg (241.3 mg 400 mg PO DAILY 07/25/23 04/03/24 History magnesium) tablet fenofibrate 54 mg tablet 54 mg PO DAILY #90 tabs 07/31/23 04/03/24 Rx sumatriptan succinate 50 mg tablet See Rx Instructions PO .COMPLEX 08/09/23 Unknown Rx (Imitrex) #10 tabs ondansetron 8 mg disintegrating 8 mg PO Q6H PRN PRN nausea and 09/09/23 04/03/24 History tablet vomiting rosuvastatin 20 mg tablet 20 mg PO QHS 09/09/23 04/02/24 History trazodone 150 mg tablet 150 mg PO QHS 09/09/23 04/02/24 History trazodone 50 mg tablet 50 mg PO QHS 09/09/23 04/02/24 History cyclobenzaprine 10 mg tablet 10 mg PO BID PRN muscle spasm #180 10/29/23 04/03/24 Rx tabs amlodipine 5 mg tablet 5 mg PO BID #60 tabs 02/05/24 04/03/24 Rx buspirone 15 mg tablet 15 mg PO BID 04/03/24 04/03/24 History buspirone 5 mg tablet 5 mg PO BID 04/03/24 Unknown History glimepiride 2 mg tablet 2 mg PO BID #60 tabs 04/20/24 Unknown Rx blood sugar diagnostic (FreeStyle #100 ea 04/21/24 Unknown Rx Lite Strips) blood-glucose meter (FreeStyle #1 ea 04/21/24 Unknown Rx Lite Meter kit) lancets 28 gauge (FreeStyle #200 ea 04/21/24 Unknown Rx Lancets) oxycodone-acetaminophen 5 mg-325 1 tab PO Q8H PRN pain 3 days #10 05/04/24 Unknown Rx mg tablet (Percocet) tabs apixaban 5 mg tablet (Eliquis) 5 mg PO BID #180 tabs 05/05/24 Unknown Rx bed rail #1 ea 05/06/24 Unknown Rx clonazepam 0.5 mg tablet 0.5 mg PO 4X/DAY 05/12/24 Unknown History guaifenesin 100 mg/5 mL oral 400 mg PO Q4H 05/12/24 Unknown History liquid (Adult Tussin Chest Congestion) naloxone 4 mg/actuation nasal spray 4 mg intranasal Q3M PRN opioid 05/12/24 Unknown History overdose Wheelchair with leg rest / lifts #1 ea 06/26/24 Unknown Rx pantoprazole 40 mg tablet,delayed 40 mg PO QDAY #90 tabs 09/10/24 Unknown Rx release (Protonix) diclofenac sodium 1 % topical gel 1 ea topical 4X/DAY 10/10/24 Unknown History menthol 4 % topical gel (Cold 1 applic topical TID PRN pain 10/10/24 Unknown History Therapy (menthol)) Allergy/AdvReac Type Severity Reaction Status Date / Time latex Allergy Intermediate skin Verified 10/02/24 13:23 irritation aspirin AdvReac Severe Nausea/Vom/ Verified 10/02/24 13:23 Diarrhea erythromycin base AdvReac Severe Vomiting,di Verified 10/02/24 13:23 (Erythromycin Base) arrhea NSAIDS (Non-Steroidal AdvReac Severe Vomiting,di Verified 10/02/24 13:23 Anti-Inflamma arrhea Family History Daughter Multiple sclerosis Father CAD (coronary artery disease) Heart disease Multiple sclerosis Grandfather Heart disease Uncle Heart disease Aunt No problems noted. Sister Colon cancer Mother Hypertension Surgical History Squamous cell carcinoma History of lumbar fusion History of esophagogastroduodenoscopy (EGD) Status post insertion of spinal cord stimulator History of left heart catheterization (08/17/21) History of colonoscopy Presence of permanent cardiac pacemaker (2013) History of resection of stomach Hx of cholecystectomy History of elbow surgery History of hysterectomy History of appendectomy History of laparotomy history excision neuroendocrine tumor Social History household members: none housing: assisted living facility current occupational status: unemployed Smoking Status: Current some day smoker tobacco type: cigarettes Tobacco: How many years used: 30 how long ago did patient quit smoking: A few months ago second hand exposure: Yes alcohol intake: never substance use type: does not use caffeine: Yes Type: carbonated beverages Number of servings: 1 and coffee Number of servings: 2 what type of physical activity do you participate in: none ivania/muslim: None seatbelt use: always do you feel safe at home: Yes ROS <JOE Cerna - Last Filed: 10/10/24 20:23> ROS ED Constitutional Constitutional ED: Denies chills or fever(s) Cardiovascular Cardiovascular: Denies chest pain Respiratory/Chest Respiratory/Chest: Denies dyspnea Gastrointestinal Gastrointestinal: Denies abdominal pain, nausea or vomiting Musculoskeletal Musculoskeletal: Reports arthralgias; Denies neck pain Integumentary Denies Abrasions Neurologic Neurologic: Denies paresthesias EXAM <JOE Cerna - Last Filed: 10/10/24 20:23> Physical Exam Const Vital Signs: 10/10/24 15:56 10/10/24 16:02 10/10/24 17:56 Temperature 98.7 F Temperature Source Oral Pulse Rate 69 60 Respiratory Rate 18 Respiratory Effort Normal Respiratory Depth Normal Respiratory Pattern Normal Blood Pressure 125/72 H Blood Pressure Mean 89 Pulse Ox 97 91 Oxygen Delivery Method Room Air Room Air Room Air 10/10/24 18:48 10/10/24 19:00 Temperature 98 F Temperature Source Pulse Rate 81 73 Respiratory Rate 14 14 Respiratory Effort Respiratory Depth Respiratory Pattern Blood Pressure 131/78 H 126/81 H Blood Pressure Mean 95 96 Pulse Ox 100 98 Oxygen Delivery Method Positive well nourished, well developed and no apparent distress General Appearance ED: well developed HEENT Reports normocephalic and head/scalp atraumatic Mouth ED: Yes moist mucous membranes normal Eyes PERRL and EOMs intact bilaterally Neck full ROM and supple General: Negative for tenderness Chest Wall inspection of chest normal Resp normal respiratory effort and clear to auscultation bilaterally Cardio regular rate and regular rhythm GI soft to palpation, non-tender, non-distended and no masses Back/Spine normal ROM and normal to inspection Extremity Extremity Narrative: Tenderness to the right hip with positive logroll on the right, right DP pulse 2+, patient is able to flex and extend at the knee although range of motion is limited secondary to pain. No knee effusion or signs of septic joint. She has tenderness to the medial aspect of the right knee, no laxity noted with varus or valgus stress. She also has tenderness to the right shoulder on exam, intact range of motion, right radial pulse 2+, tenderness along the right clavicle. No erythema, warmth, or signs of infection to the upper or lower extremities on exam. Neuro oriented x3, CN's II-XII intact bilaterally, moves all extremities, no focal motor deficits and no sensory deficits noted Sensorium / Orientation: awake and alert Psych mental status grossly normal and thought process normal Skin no rashes or lesions noted and no wounds <Dr. Virgil Daniels MD - Last Filed: 10/10/24 20:55> Physical Exam Const Vital Signs: 10/10/24 15:56 10/10/24 16:02 10/10/24 17:56 Temperature 98.7 F Temperature Source Oral Pulse Rate 69 60 Respiratory Rate 18 Respiratory Effort Normal Respiratory Depth Normal Respiratory Pattern Normal Blood Pressure 125/72 H Blood Pressure Mean 89 Pulse Ox 97 91 Oxygen Delivery Method Room Air Room Air Room Air 10/10/24 18:48 10/10/24 19:00 Temperature 98 F Temperature Source Pulse Rate 81 73 Respiratory Rate 14 14 Respiratory Effort Respiratory Depth Respiratory Pattern Blood Pressure 131/78 H 126/81 H Blood Pressure Mean 95 96 Pulse Ox 100 98 Oxygen Delivery Method MDM <JOE Cerna - Last Filed: 08/02/25 20:23> MDM MDM Narrative Medical decision making narrative: Patient presenting today with pain to her right clavicle, shoulder, hip, and knee following a mechanical fall that occurred this afternoon. No head injury occurred or LOC. She has tenderness to the right mid clavicle, x-ray was obtained to assess for fracture and is negative. She also has pain over the right proximal humerus, x-ray obtained and is negative. X-ray of the right hip and knee obtained as well to assess for fracture and are negative. She was given a Simon here for pain. On reexamination she is feeling improved. She has been reassured. RICE instructions were discussed with her, recommended she take Tylenol as needed for her pain at home. Recommended she follow-up with her PCP and she will be discharged home in stable condition. I have personally performed a face to face assessment of the patient and have reviewed the MACK Note. I performed a substantive portion of the visit including all aspects of the following. My gonzalez findings include: History is remarkable patient falling onto her right side. She complains of pain in the right shoulder clavicle area, right hip and right knee. She is wheelchair dependent. She denies head trauma. Denies loss of conscious. Denies neck pain. She denies paresthesia or anesthesia. She does complain of some right-sided torso pain. She denies shortness of breath or difficulty breathing. She denies nausea or vomiting. Exam is remarkable pain to palpation medial third of the right clavicle. There is minimal to no discomfort over the AC joint. There is pain ovation of the proximal humerus. Axillary, median, radial and ulnar function intact. Lungs are clear station symmetric breath sounds. Heart is regular. Rate is normal. There is no murmur, gallop or rub. There is incision noted for place meant of pacemaker left. Patient complains of pain with moving the right lower extremity. There is no shortening. Logrolling causes some minimal discomfort posteriorly. She does have some pain over the greater trochanteric region and over the right patella. There is no neurovasc Otomize of the right or left lower extremity. There is no evidence of head trauma. GCS is 15. Medical Decision Making x-rays were obtained to evaluate for contusion versus fracture. Other additions or changes: [None] <Dr. Virgil Daniels MD - Last Filed: 10/10/24 20:55> [facility] Narrative Medical decision making narrative: I have personally performed a face to face assessment of the patient and have reviewed the MACK Note. I performed a substantive portion of the visit including all aspects of the following. My gonzalez findings include: History is remarkable patient falling onto her right side. She complains of pain in the right shoulder clavicle area, right hip and right knee. She is wheelchair dependent. She denies head trauma. Denies loss of conscious. Denies neck pain. She denies paresthesia or anesthesia. She does complain of some right-sided torso pain. She denies shortness of breath or difficulty breathing. She denies nausea or vomiting. Exam is remarkable pain to palpation medial third of the right clavicle. There is minimal to no discomfort over the AC joint. There is pain ovation of the proximal humerus. Axillary, median, radial and ulnar function intact. Lungs are clear station symmetric breath sounds. Heart is regular. Rate is normal. There is no murmur, gallop or rub. There is incision noted for place meant of pacemaker left. Patient complains of pain with moving the right lower extremity. There is no shortening. Logrolling causes some minimal discomfort posteriorly. She does have some pain over the greater trochanteric region and over the right patella. There is no neurovasc Otomize of the right or left lower extremity. There is no evidence of head trauma. GCS is 15. Medical Decision Making x-rays were obtained to evaluate for contusion versus fracture. Other additions or changes: [None] Radiography Chest X-Ray - ED: 2 View (2 view x-ray of the right clavicle reveals no fracture. AC joint reveals some mild arthritis.), Read by ED Physician (4 view x-ray of the right knee reveals arthritic changes. There is no effusion, fracture subluxation dislocation. 3 view x-ray of the hip reveals no fracture, subluxation dislocation. Pelvis was without any pathology either.) and - (3 views of the right shoulder reveals no fracture, subluxation dislocation. There are some arthritic changes noted of the proximal humerus.) Discharge Plan Triage Chief Complaint: Fall ED Midlevel Provider: Ena Hansen ED Provider: Virgil Daniels Dx/Rx/DC Orders Clinical Impression: Fall, Chronic lower back pain, Right hip pain, Contusion of knee, right, Contusion of right shoulder, Pain of right clavicle Instructions: Slips Trips Falls Prevention, ED Contusion, Lower Extremity, ED Contusion, Upper Extremity Prescriptions: No Action duloxetine 60 mg capsule,delayed release(DR/EC) 120 mg PO DAILY Rx Instructions: rx by pallative care gabapentin 300 mg capsule 300 mg PO TID Patient Comments: TAKE 1 CAPSULE BY MOUTH THREE TIMES A DAY trazodone 150 mg tablet 150 mg PO QHS Rx Instructions: Take with 50 mg tablet to = 200 mg qhs potassium chloride 20 mEq tablet,ER particles/crystals 20 meq PO DAILY trazodone 50 mg tablet 50 mg PO QHS Rx Instructions: Take with 150 mg tablet to = 200 mg qhs rosuvastatin 20 mg tablet 20 mg PO QHS magnesium oxide 400 mg (241.3 mg magnesium) tablet 400 mg PO DAILY levothyroxine 25 mcg tablet 25 mcg PO DAILY Rx Instructions: TAKE ONE TABLET BY MOUTH DAILY FOR THYROID ondansetron 8 mg tablet,disintegrating 8 mg PO Q6H PRN PRN (Reason: nausea and vomiting) Rx Instructions: TAKE ONE TABLET BY MOUTH EVERY 6 HOURS NEEDED FOR NAUSEA AND VOMITING buspirone 5 mg tablet 5 mg PO BID Rx Instructions: WITH 15MG FOR TOTAL DAILY DOSE OF 20MG buspirone 15 mg tablet 15 mg PO BID Rx Instructions: WITH 5MG FOR TOTAL DAILY DOSE OF 20MG oxycodone-acetaminophen [Percocet] 5-325 mg tablet 1 tab PO Q8H PRN (Reason: pain) 3 Days Qty: 10 0RF clonazepam 0.5 mg tablet 0.5 mg PO 4X/DAY Patient Comments: [NO ORIGINAL SIG] naloxone 4 mg/actuation spray,non-aerosol 4 mg intranasal Q3M PRN (Reason: opioid overdose) Rx Instructions: spray 1 dose into ONE nostril; alternate nostrils w each dose until help arrives guaifenesin [Adult Tussin Chest Congestion] 100 mg/5 mL liquid 400 mg PO Q4H Cold Therapy (menthol) 4 % gel 1 applic topical TID PRN (Reason: pain) diclofenac sodium 1 % gel 1 ea topical 4X/DAY isosorbide mononitrate 60 mg tablet extended release 24 hr 60 mg PO QAM Qty: 90 3RF (DME) Ultra-Light Rollator Misc See Rx Instructions .Route Qty: 1 0RF Rx Instructions: As directed Prolia 60 mg/mL syringe 60 mg subcut [id number] Qty: 1 2RF Patient Comments: due for injection lisinopril 20 mg tablet 20 mg PO DAILY Qty: 90 1RF metoprolol tartrate 100 mg tablet 100 mg PO BID Qty: 180 1RF Rx Instructions: TAKE 1 TABLET BY MOUTH TWICE A DAY FOR BLOOD PRESSURE/HEART fenofibrate 54 mg tablet 54 mg PO DAILY Qty: 90 1RF sumatriptan succinate [Imitrex] 50 mg tablet See Rx Instructions PO .COMPLEX Qty: 10 3RF Rx Instructions: take 1 tab at onset of headache; if no relief may repeat 1 tab after at least 2 hrs; max = 4 tabs/24 hr PO cyclobenzaprine 10 mg tablet 10 mg PO BID PRN (Reason: muscle spasm) Qty: 180 1RF amlodipine 5 mg tablet 5 mg PO BID Qty: 60 11RF glimepiride 2 mg tablet 2 mg PO BID Qty: 60 2RF (DME) FreeStyle Lite Strips Strip See Rx Instructions .MEDSUPPLY Qty: 100 3RF Rx Instructions: check blood glucose daily for type 2 DM (DME) blood-glucose meter [FreeStyle Lite Meter] Kit See Rx Instructions .MEDSUPPLY Qty: 1 0RF Rx Instructions: As directed, check blood glucose daily for type 2 DM (DME) lancets [FreeStyle Lancets] 28 gauge misc See Rx Instructions .MEDSUPPLY Qty: 200 3RF Rx Instructions: check blood glucose daily for type 2 DM Eliquis 5 mg tablet 5 mg PO BID Qty: 180 1RF Rx Instructions: Start after completing starter pack (DME) bed rail See Rx Instructions .Route .MEDSUPPLY Qty: 1 0RF Rx Instructions: As directed (DME) Wheelchair with leg rest / lifts See Rx Instructions .Route .MEDSUPPLY Qty: 1 0RF Rx Instructions: For daily use / mobility purposes pantoprazole [Protonix] 40 mg tablet,delayed release (DR/EC) 40 mg PO QDAY Qty: 90 1RF Primary Care Provider: Charla Wadsworth Referrals: Charla Wadsworth MD [Primary Care Provider] - 5-7 Days Activity Restrictions/Additional Instructions: Follow-up with your PCP and return for any worsening symptoms or if you have any other concerns. Print Language: Pashto Disposition Disposition: Home, Self Care Discharge Date/Time: 10/10/24 20:41
--- OUTSIDE RECORDS SUMMARY | 2024-10-10 16:31 | XMS RPT_ITS | CCD ---
Author Organization [facility] Inform ion Partnership [facility] Care Team Providers Care Certification And Selection Specialist Name Role Phone Clarissa Jose MD Unavailable Charla Wadsworth Primary Care Provider Provider, External Unavailable Deepika Lopes Unavailable Unavailable Dev Bridges Unavailable GEE MERCHANT MD Consulting Unavailab le NATALY VASQUEZ MD Attending Unavailable NATALY VASQUEZ MD Primary Care Unavailable NATALY VASQUEZ MD Admitting Unavailable PROVIDER, UNKNOWN Consulting Unavailable Dr. Charla Wadsworth Primary Care Provider [phone] Dr. Samuel Keys Attending Provider Dr. Samuel Keys Referring Provider Dr. Charla Wadsworth Referring Provider Dr. Charla Wadsworth Primary Care Provider [phone] Dr. Samuel Keys Attending Provider Dr. Charla Wadsworth Primary Care Provider [phone] Dr. Virgil Daniels Emergency Provider Dr. Laura Alberto Admit Provider Dr. Laura Alberto Attending Provider Dr. Laura Alberto Other Provider Dr. Alexander Krueger Attending Provider Dr. Alexander Krueger Other Provider Dr. Charla Wadsworth Attending Provider [phone] Ananth, Dr. Dunham Referring Provider [phone] Shadi ACCELERATOR TECHNICIAN, ACCELERATOR TECHNICIAN-C Candy Attending Provider Shadi ACCELERATOR TECHNICIAN, ACCELERATOR TECHNICIAN-C Candy Referring Provider Dr. Raegan Noel Attending Provider Dr. Charla Wadsworth Primary Care Provider [phone] Ananth, Dr. Dunham Referring Provider [phone] Dr. Samuel Keys Attending Provider [phone] Dr. Charla Wadsworth Attending Provider [phone] Ananth, Dr. Dunham Primary Care Provider [phone]) Dr. Charla Wadsworth Referring Provider [phone])2 Dr. Samuel Keys Attending Provider [phone] JOE Ritter Attending Provider Dr. Charla Wadsworth Primary Care Provider [phone]) Dr. Charla Wadsworth Attending Provider [phone])2 Dr. Charla Wadsworth Referring Provider [phone])2 Dr. Charla Wadsworth Primary Care Provider 1(33 0) Dr. Charla Wadsworth Attending Provider [phone])2 Dr. Charla Wadsworth Referring Provider [phone])2 Dr. Samuel Keys Attending Provider [phone] JOE Ritter Attending Provider Dr. Samuel Keys Referring Provider [phone] EDWIN Cr Attending Provider [phone]) Dr. Charla Wadsworth Primary Care Provider [phone]) Dr. Samuel Keys Attending Provider Dr. Charla Wadsworth Referring Provider [phone] Ananth GAUTAM, Dr. Dunham Primary Care Provider Ananth GAUTAM, Dr. Dunham Attending Provider [phone] Ananth GAUTAM, Dr. Dunham Referring Provider [phone] Ludmila GAUTAM, Dr. Baker Attending Provider Martina GAUTAM, Dr. Phillips Attending Provider Martina GAUTAM, Dr. Phillips Referring Provider Dr. Crystal Lujan DO Emergency Provider Pa GAUTAM, Dr. Rivers Admit Provider Pa GAUTAM, Dr. Rivers Other Provider Sherif GAUTAM, Dr. Watts Attending Provider Unavaila ble Sherif GAUTAM, Dr. Watts Other Provider Unavailable Oralia GAUTAM, Gigi Attending Provider Gigi Barton MD Emergency Provider Dr. Gregory Xie DO Attending Provider Dr. Gregory Xie DO Emergency Provider Dr. Keon France MD Attending Provider Jose ACCELERATOR TECHNICIAN-CJcarlos Referring Provider Dr. Panda Rowe DO Emergency Provider Ananth GAUTAM, Dr. Dunham Primary Care Provider Ananth GAUTAM, Dr. Dunham Attending Provider [phone] Ananth GAUTAM, Dr. Dunham Referring Provider Dr. Panda Rowe DO Attending Provider Imelda Hernandez Attending Provider Unavailable Leeann ACCELERATOR TECHNICIAN-CKareen Attending Provider Leeann ACCELERATOR TECHNICIAN-CKareen Referring Provider Ananth GAUTAM, Dr. Dunham Primary Care Provider Dr. Samuel Keys MD Attending Provider Dr. Virgil Daniels MD Emergency Provider MAYUR GAUTAM, DR FLYNN Primary Care MD SHARON Bernard Attending Unavailable Flaquito MANCINI, Dr. Parikh Referring Provider Flaquito MANCINI, Dr. Parikh Emergency Provider Charla Wadsworth MD B Primary Care Provider [phone] Jeremiah GAUATM, Dr. Herman Attending Provider Flaquito MANCINI, Dr. Parikh Attending Provider Dr. Chaim Maurer DO Emergency Provider MATTO, NACHO Referring Unavailable OLEGHE, EFEWONGBE B Primary Care Unavailable MATTO, NACHO Referring Unavailable OLEGHE, EFEWONGBE B Primary Care Unavailable FLAQUITO REMUS A Referring Unavailable LYDIA ESTRELLA Admitting Unavaila ble BUTCH MAYS Consulting Unavailable TANISHA, DILMA Attending Unavailable TABATHA, BUTCH Referring Unavailable OLEGHE, EFEWONGBE B Primary Care Unavailable TABATHA, BUTCH T Attending Unavailable OLEGHE, EFEWONGBE B Primary Care Unavailable Ananth GAUTAM, Dr. Dunham Primary Care Provider Ananth GAUTAM, Dr. Dunham Referring Provider [phone] Gigi Barton MD Attending Provider Gigi Barton MD Emergency Provider Dr. Charla Wadsworth MD Attending Provider [phone] Dr. Chaim Maurer DO Attending Provider Dr. Charla Wadsworth MD Primary Care Provider Dr. Samuel Keys MD Attending Provider Dr. Keon France MD Attending Provider Alonzo ACCELERATOR TECHNICIAN-CJaneth Attending Provider Oleghe, Efewongbe Primary Care Unavailable Tita Winn Admitting Unavailable Autumn Gorman Attending Unavailable Tita Winn Consulting Unavailable Alan Mack Attending Unavailable Alan Mack Referring Unavailable Oleghe, Efewongbe Primary Care Unavailable Ludmila, Samuel Attending Unavailable Oleghe, Efewongbe Primary Care Unavailable Leeann ACCELERATOR TECHNICIAN, Kareen Attending Unavailable Leeann ACCELERATOR TECHNICIAN, Kareen Referring Unavailable Oleghe, Efewongbe Primary Care Unavailable Oleghe, Efewongbe Primary Care Unavailable Gigi Barton Attending Unavailable Ludmila, [place] Attending Unavailable Oleghe, Efewongbe Primary Care Unavailable Oleghe, Efewongbe Primary Care Unavailable Chaim Maurer Attending Unavailable Oleghe, Efewongbe Primary Care Unavailable Crystal Lujan Attending Unavailable Oleghe, Efewongbe Primary Care Unavailable Panda Rowe Attending Unavailable Oleghe, Efewongbe Attending Unavailable Oleghe, Efewongbe Referring Unavailable Oleghe, Efewongbe Primary Care Unavailable Oleghe, Efewongbe Primary Care Unavailable Virgil Daniels Attending Unavailable Raegan Noel Attending Unavailable Isckarus, Mansour Referring Unavailable Oleghe, Efewongbe Primary Care Unavailable Shadi ACCELERATOR TECHNICIAN, Candy Consulting Unavailable Ludmila, Samuel Attending Unavailable Oleghe, Efewongbe Primary Care Unavailable Ludmila, Samuel Referring Unavailable Elian, Phyllis Attending Unavailable Elian, Phyllis Referring Unavailable Oleghe, Efewongbe Primary Care Unavailable Goodyear, Phyllis Attending Unavailable Elian, Phyllis Referring Unavailable Oleghe, Efewongbe Primary Care Unavailable Anastasiia ACCELERATOR TECHNICIAN, Gautam Mena Attending Unavailable Anastasiia ACCELERATOR TECHNICIANGautam Referring Unavailable Oleghe, Efewongbe Primary Care Unavailable Ludmila, [place] Attending Unavailable Oleghe, Efewongbe Primary Care Unavailable Ludmila, Samuel Attending Unavailable Oleghe, Efewongbe Primary Care Unavailable Ludmila, [place] Attending Unavailable Oleghe, Efewongbe Primary Care Unavailable Oleghe, Efewongbe Attending Unavailable Oleghe, Efewongbe Referring Unavailable Oleghe, Efewongbe Primary Care Unavailable Oleghe, Efewongbe Primary Care Unavailable Oleghe, Efewongbe Referring Unavailable Ludmila, Samuel Attending Unavailable Ludmila, Samuel Attending Unavailable Oleghe, Efewongbe Primary Care Unavailable Raegan Noel Attending Unavailable Oleghe, Efewongbe Primary Care Unavailable Oleghe, Efewongbe Referring Unavailable Oleghe, Efewongbe Attending Unavailable Oleghe, Efewongbe Referring Unavailable Oleghe, Efewongbe Primary Care Unavailable Ludmila, [place] Attending Unavailable Oleghe, Efewongbe Primary Care Unavailable Ludmila, [place] Consulting Unavailable Tita Winn Admitting Unavailable Autumn Gorman Attending Unavailable Oleghe, Efewongbe Primary Care Unavailable Tita Winn Consulting Unavailable Autumn Gorman Consulting Unavailable Tita Winn Attending Unavailable Keon France Attending Unavailable Oleghe, Efewongbe Primary Care Unavailable Kareen Bradshaw NP Referring Unavailable Kareen Bradshaw NP Attending Unavailable Oleghe, Efewongbe Primary Care Unavailable Gautam Laurent NP Attending Unavailable Oleghe, Efewongbe Referring Unavailable Oleghe, Efewongbe Primary Care Unavailable Imelda Hernandez Attending Unavailable Oleghe, Efewongbe Referring Unavailable Oleghe, Efewongbe Primary Care Unavailable Ludmila, Samuel Attending Unavailable Oleghe, Efewongbe Primary Care Unavailable Janeth Rosado Attending Unavailable Oleghe, Efewongbe Referring Unavailable Oleghe, Efewongbe Primary Care Unavailable Oleghe, Efewongbe Referring Unavailable Oleghe, Efewongbe Primary Care Unavailable Ludmila, [place] Attending Unavailable Ludmila, Samuel Attending Unavailable Oleghe, Efewongbe Primary Care Unavailable Kareen Bradshaw NP Attending Unavailable Oleghe, Efewongbe Primary Care Unavailable Oleghe, Efewongbe Referring Unavailable Kareen Bradshaw NP Attending Unavailable Oleghe, Efewongbe Referring Unavailable Oleghe, Efewongbe Primary Care Unavailable Oleghe, Efewongbe Attending Unavailable Oleghe, Efewongbe Primary Care Unavailable Keon France Attending Unavailable Oleghe, Efewongbe Primary Care Unavailable Jcarlos Garcia Referring Unavailable Rosemarie Ritter Attending Unavail able Ludmila, Samuel Referring Unavailable Oleghe, Efewongbe Primary Care Unavailable Ludmila, Samuel Consulting Unavailable Oleghe, Efewongbe Attending Unavailable Oleghe, Efewongbe Referring Unavailable Oleghe, Efewongbe Primary Care Unavailable Shadi ACCELERATOR TECHNICIANCandy Attending Unavailable Oleghe, Efewongbe Primary Care Unavailable Shadi ACCELERATOR TECHNICIAN, Candy Referring Unavailable Samuel Keys Attending Unavailable Oleghe, Efewongbe Primary Care Unavailable Oleghe, Efewongbe Primary Care Unavailable Keon Ramirez Attending Unavailable Oleghe, Efewongbe Attending Unavailable Oleghe, Efewongbe Referring Unavailable Oleghe, Efewongbe Primary Care Unavailable Leeann ACCELERATOR TECHNICIAN, Kareen Attending Unavailable Leeann ACCELERATOR TECHNICIAN, Kareen Referring Unavailable Oleghe, Efewongbe Primary Care Unavailable Oleghe, E[place]be Primary Care Unavailable Panda Rowe Attending Unavailable Oleghe, [place] Primary Care Unavailable Gigi Barton Attending Unavailable Oleghe, [place] Primary Care Unavailable Gregory Xie Attending Unavailable Ilya Cao Attending Unavailable Oleghe, [place] Referring Unavailable Oleghe, Efewongbe Primary Care Unavailable Leeann ACCELERATOR TECHNICIAN, Kareen Attending Unavailable Leeann ACCELERATOR TECHNICIAN, Kareen Referring Unavailable Oleghe, Efewongbe Primary Care Unavailable Oleghe, Efewongbe Attending Unavailable Oleghe, Efewongbe Referring Unavailable Oleghe, Efewongbe Primary Care Unavailable Oleghe, Efewongbe Attending Unavailable Oleghe, Efewongbe Referring Unavailable Oleghe, Efewongbe Primary Care Unavailable Oleghe, Efewongbe Primary Care Unavailable Ungur, Remus Attending Unavailable Ungur, Remus Referring Unavailable Allergies Allergy Classification Reported Allergen(s) Allergy Type Date of Onset Reaction(s) Facility Macrolides (antibiotic) (1 source) Erythromycin Drug Allergy [facility] Repository Unclassified (1 source) NSAID Drug allergy (disorder) [facility] Unclassified (1 source) AUGMENTED BETAMETHASONE DIPROPIONATE Drug allergy (disorder) [facility] (20 sources) Aspirin Drug Allergy 2 Nausea/Vom/Verónica rrhea [facility] (20 sources) Erythromycin Drug Allergy [address] [facility] (20 sources) Latex; Translations: [LATEX] Allergy to substance 1 Other: See Comments [facility] (20 sources) NSAIDS (Non-Steroidal Anti-Inflamma; Translations: [NSAIDS (Non-Steroidal Anti-Inflamma] Propensity to adverse reactions 2 Vomiting,diarr hea [facility] (9 sources) Ibuprofen; Translations: [IBUPROFEN] Drug Allergy 5 GI Upset [facility] (9 sources) NSAIDs; Translations: [NSAIDS (NON-STEROIDAL ANTI-INFLAMMATORY DRUG)] Drug Allergy 4 Diarrhea, Vomiting [facility] (9 sources) Salicylate product; Translations: [SALICYLATES] Drug Allergy 5 GI Upset [facility] (2 sources) Erythromycin; Translations: [ERYTHROMYCIN] Drug Allergy 5 [facility] Other [place] [facility] (1 source) Aspirin Drug Allergy [address] [facility] Repository (1 source) Latex Drug allergy (disorder) [address] [facility] Repository (1 source) erythromycin base Drug allergy (disorder) [address] [facility] Repository Medications Current Medications Medication Drug Class(es) Dates Sig (Normalized) Sig (Original) amLODIPine 5 mg oral tablet (20 sources) Dihydropyridine Calcium Channel Mirna Start: 02-03-2024 End: 02-05-2024 Start: 01-13-2024 End: 02-03-2024 Start: 06-03-2020 End: 01-13-2024 Start: 12-01-2019 End: 06-03-2020 Start: 12-01-2019 End: 05-26-2020 take 10 mg by mouth once daily Amlodipine Discontinued 10 MG PO DAILY December 01, 2019 10:13am May 26, 2020 2:11pm Start: 11-20-2019 End: 12-01-2019 take 10 mg by mouth once daily Amlodipine Discontinued 10 MG PO DAILY November 30, 2019 11:35am December 01, 2019 10:16am Start: 11-10-2019 End: 12-01-2019 Start: 05-17-2017 End: 06-29-2018 take 1 tablet by braden twice daily amLODIPine (NORVASC) 5 mg tablet Take 5 mg by mouth two times a day. Active busPIRone hydrochloride 5 mg oral tablet (20 sources) Start: 04-03-2024 Start: 04-03-2024 Start: 09-09-2023 End: 04-03-2024 Start: 05-16-2022 End: 09-09-2023 Start: 05-16-2022 End: 01-30-2023 take 7.5 mg by mouth three times daily Buspirone Discontinued 7.5 MG PO THREE TIMES A DAY May 16, 2022 1:00am January 30, 2023 11:01am Start: 11-03-2021 End: 12-03-2021 Start: 11-03-2021 End: 12-03-2021 take 7.5 mg by mouth three times daily Buspirone Discontinued 7.5 MG PO THREE TIMES A DAY November 03, 2021 3:47pm December 03, 2021 12:04am mood Start: 01-15-2019 End: 11-03-2021 Start: 01-15-2019 End: 03-01-2021 take 5 mg by mouth three times daily Buspirone Discontinued 5 MG PO THREE TIMES A DAY 90 February 03, 2019 6:23pm March 01, 2021 12:21pm mood Start: 12-09-2018 End: 12-31-2018 Start: 12-09-2018 End: 12-31-2018 take 5 mg by mouth three times daily Buspirone Discontinued 5 MG PO THREE TIMES A DAY 90 December 09, 2018 12:00am December 31, 2018 10:54am take 1 tablet by braden th twice daily busPIRone (BUSPAR) 5 mg tablet Take 5 mg by mouth two times a day. Active clonazePAM 0.5 mg oral table t (20 sources) Benzodiazepine Start: 05-12-2024 Start: 04-03-2024 End: 05-12-2024 Start: 07-16-2023 End: 04-03-2024 cyclobenzaprine hydrochlorid e 10 mg oral tablet (20 sources) Muscle Relaxant Start: 08-26-2023 End: 10-29-2023 Start: 06-30-2019 End: 07-06-2019 take 1 tablet by braden th every twelve hours as needed cyclobenzaprine (FLEXERIL) 10 mg tablet Take 10 mg by mouth two times a day as needed for muscle spasm. Active 1 ml denosumab 60 mg/ml prefilled syringe (20 sources) RANK Ligand Inhibitor Start: 02-07-2023 End: 02-15-2023 DULoxetine 60 mg delayed release oral capsule (20 sources) Serotonin and Norepinephrine Reuptake Inhibitor Start: 05-26-2020 End: 05-16-2022 Start: 05-26-2020 End: 05-16-2022 take 60 mg by mouth twice daily Duloxetine Discontinue d 60 MG PO TWICE A DAY May 26, 2020 12:00am May 16, 2022 9:02am rx by [facility] Start: 03-28-2015 End: 02-25-2020 Start: 12-16-2012 End: 04-02-2013 take 1 capsule by mo uth once daily DULoxetine (CYMBALTA) 60 mg capsule Take 60 mg by mouth once daily. Active fenofibrate 54 mg oral tablet (18 sources) Peroxisome Proliferator Receptor alpha Agonist Start: 07-31-2023 ferrous fumarate 325 mg oral tablet (7 sources) take 1 tablet by mouth twice daily Ferrous Fumarate 325 mg (106 mg iron) tab Take 325 mg by mouth twice daily. Active gabapentin 300 mg oral capsule (20 sources) Anti-epileptic Agent Start: 05-16-2022 Start: 10-08-2018 End: 11-26-2018 Start: 06-28-2018 End: 09-09-2018 Start: 12-17-2012 End: 04-02-2013 take 1 capsule by mo ut four times daily gabapentin (NEURONTIN) 300 mg capsule Take 300 mg by mouth four times daily. Active glimepiride 2 mg oral tablet (18 sources) Sulfonylurea Start: 04-20-2024 guaiFENesin 20 mg/ml oral so lution (20 sources) Start: 05-12-2024 Start: 04-05-2024 End: 04-20-2024 24 hr isosorbide mononitrate 60 mg extended release oral tablet (20 sources) Nitrate Vasodilator Start: 08-20-2021 End: 06-13-2022 Start: 12-30-2019 End: 08-20-2021 Start: 12-30-2019 End: 08-15-2021 take 30 mg by mouth once daily in the morning Isosorbide Mononitrate Discontinued 30 MG PO EVERY MORNING October 17, 2020 12:38pm August 15, 2021 3:30pm lidocaine 0.04 mg/mg medicated patch (1 source) Antiarrhythmic, Amide Local Anesthetic Start: 07-05-2024 End: 07-10-2024 apply 1 dose transdermal route once daily lidocaine (SALONPAS) 4 % patch Apply 1 patch as directed once daily for 5 days. 5 patch 07/05/2024 07/10/2024 Active lisinopril 20 mg oral tablet (20 sources) Angiotensin Converting Enzyme Inhibitor Start: 08-28-2022 End: 02-20-2023 Start: 06-01-2022 End: 08-28-2022 take 1 tablet by mouth once daily Lisinopril Discontinued 0 .ROUTE .COMPLEX June 01, 2022 7:00am August 28, 2022 1:05pm TAKE ONE TABLET BY MOUTH DAILY FOR BLOOD PRESSURE Start: 06-01-2022 End: 08-28-2022 take 1 tablet by mouth once daily Lisinopril Discontinued 0 .ROUTE .COMPLEX June 01, 2022 8:00am August 28, 2022 2:05pm TAKE ONE TABLET BY MOUTH DAILY FOR BLOOD PRESSURE Start: 11-06-2018 End: 06-01-2022 Start: 03-28-2015 End: 11-06-2018 Start: 03-28-2015 End: 06-29-2018 take 1 tablet by mouth twice daily lisinopril (ZESTRIL, PRINIVIL) 20 mg tablet TAKE 1 TABLET BY MOUTH TWICE A DAY 180 tablet 3 03/05/2018 Active magnesium oxide 400 mg oral tablet (11 sources) Start: 07-25-2023 ondansetron 4 mg disintegrat ing oral tablet (20 sources) Serotonin-3 Receptor Antagonist Start: 07-23-2024 Start: 11-14-2021 End: 09-09-2023 Start: 11-03-2021 End: 11-14-2021 Start: 11-13-2019 End: 01-07-2020 Start: 11-10-2019 End: 12-01-2019 Start: 11-26-2018 End: 01-15-2019 Start: 10-08-2018 End: 10-09-2018 Ondansetron Hcl (Zofran) 4 m g tablet Discontinued 4 MG PO 2 to 3 times per day October 08, 2018 12:00am October 09, 2018 4:36pm Start: 01-02-2018 End: 10-09-2018 Start: 01-02-2018 End: 10-08-2018 take 4 mg by mouth every six hours as needed Ondansetron Hcl Discontinued 4 MG PO EVERY 6 HOURS NEEDED January 02, 2018 12:00am October 08, 2018 12:28pm pantoprazole 40 mg delayed r elease oral tablet (20 sources) Proton Pump Inhibitor Start: 09-10-2024 Start: 04-08-2017 End: 10-08-2018 Start: 04-08-2017 End: 08-22-2017 take 40 mg by mouth once daily Pantoprazole Discontinu ed 40 MG PO DAILY April 08, 2017 1:00am August 22, 2017 4:07pm rosuvastatin calcium 20 mg o ral tablet (20 sources) HMG-CoA Reductase Inhibitor Start: 09-09-2023 Start: 12-18-2019 End: 09-09-2023 salmon calcitonin 200 unt/ac tuat nasal spray (9 sources) Calcitonin Start: 06-29-2024 SUMAtriptan 50 mg oral table t (18 sources) Serotonin-1b and Serotonin-1d Receptor Agonist Start: 08-09-2023 traZODone hydrochloride 50 m g oral tablet (20 sources) Serotonin Reuptake Inhibitor Start: 09-09-2023 Start: 05-16-2022 End: 09-09-2023 Start: 12-17-2012 End: 12-17-2012 Start: 12-17-2012 End: 12-17-2012 take 100 mg by mouth at bedtime Trazodone Discontinued 100 MG PO AT BEDTIME December 17, 2012 12:00am December 17, 2012 11:21am Walker (Ultra-Light Rollator ) misc (7 sources) Start: 10-17-2022 Walker (Ultra- Light Rollator) misc Active 0 .Route 1 October 16, 2022 11:00pm As directed Start: 10-17-2022 Walker (Ultra- Light Rollator) misc Active 0 .Route 1 October 17, 2022 12:00am As directed (20 sources) Start: 06-26-2024 Start: 06-04-2024 End: 06-26-2024 Start: 06-04-2024 Start: 05-12-2024 Start: 05-06-2024 Start: 04-21-2024 Start: 09-09-2023 End: 04-20-2024 Start: 10-17-2022 Start: 10-17-2022 End: 10-17-2022 Start: 06-01-2022 End: 08-28-2022 Completed/Discontinued Medications Medication Drug Class(es) Dates Sig (Normalized) Sig (Original) acetaminophen 325 mg / HYDROcodone bitartrate 5 mg oral tablet (20 sources) Opioid Agonist Start: 12-04-2019 End: 02-25-2020 Start: 12-04-2019 End: 02-25-2020 take 1 tablet by mouth every six hours Hydrocodone-Acetaminophen Discontinued 1 TABLET PO EVERY 6 HOURS December 04, 2019 February 25, 2020 3:27pm Start: 11-13-2019 End: 11-16-2019 Start: 11-13-2019 End: 11-16-2019 take 1 tablet by mouth every six hours as needed Hydrocodone-Acetaminophen Discontinued 1 TABLET PO EVERY 6 HOURS NEEDED 12 11November 13, 2019 November 16, 2019 12:02am Start: 07-01-2019 End: 07-03-2019 Start: 07-01-2019 End: 07-03-2019 take 1 tablet by mouth every four hours as needed Hydrocodone-Acetaminophen Discontinued 1 TABLET PO EVERY 4 HOURS NEEDED 12 10July 01, 2019 July 03, 2019 12:02am acetaminophen 325 mg / oxyCO DONE hydrochloride 5 mg oral tablet (20 sources) Opioid Agonist Start: 03-26-2023 End: 05-12-2024 Start: 03-26-2023 Oxycodone-Acet aminophen Active TABLET PO March 26, 2023 1:00am Start: 09-20-2015 End: 09-20-2015 Start: 09-20-2015 End: 09-20-2015 take 1 tablet by mouth every six hours as needed Oxycodone-Acetaminophen Discontinued 1 - 2 TABLET PO EVERY 6 HOURS NEEDED September 20, 2015 12:00am September 20, 2015 10:36am Start: 12-17-2012 End: 04-02-2013 take 1 tablet by mouth every four hours as needed Oxycodone-Acetaminophen (Percocet) 1 EAC H tablet Discontinued 1 TABLET PO EVERY 4 HOURS NEEDED December 17, 2012 12:00am April 02, 2013 1:04pm Start: 12-16-2012 End: 04-02-2013 Start: 12-16-2012 End: 12-17-2012 take 1 tablet by mouth every six hours as needed Oxycodone-Acetaminophen (Percocet 10-325 Mg Tablet) 1 EACH tablet Discontinued 1 TABLET PO EVERY 6 HOURS NEEDED December 16, 2012 12:00am December 17, 2012 12:23am [id number] 200 actuat albuter ol 0.09 mg/actuat metered dose inhaler (11 sources) beta2-Adrenergic Agonist Start: 04-05-2024 End: 05-12-2024 amoxicillin 875 mg / clavula eleazar 125 mg oral tablet (20 sources) Penicillin-class Antibacterial Start: 12-12-2020 End: 03-01-2021 Start: 12-12-2020 End: 03-01-2021 take 1 tablet by mouth twice daily Amoxicillin-Pot Clavulanate (Augmentin) 875-125 mg tablet Discontinued 1 TABLET PO TWICE A DAY December 12, 2020 12:00am March 01, 2021 12:20pm Start: 01-12-2020 End: 01-22-2020 Start: 01-12-2020 End: 01-22-2020 take 1 tablet by mouth every twelve hours Amoxicillin-Pot Clavulanate (Augmentin) 875-125 mg tablet Discontinued 1 TABLET PO Q12H 20 January 12, 2020 1:00am January 22, 2020 1:03am Apixaban (20 sources) Factor Xa Inhibitor Start: 05-05-2024 End: 06-11-2024 Start: 05-05-2024 Start: 05-05-2024 Start: 05-04-2024 End: 05-05-2024 atorvastatin 20 mg oral tabl et (20 sources) HMG-CoA Reductase Inhibitor Start: 04-02-2013 End: 04-03-2013 Start: 04-02-2013 End: 04-03-2013 take 20 mg by mouth at bedtime Atorvastatin Discontinu ed 20 MG PO AT BEDTIME April 02, 2013 1:00am April 03, 2013 12:38pm baclofen 5 mg oral tablet (20 sources) gamma-Aminobutyric Acid-ergic Agonist Start: End: 05-16-2022 Start: 03-17-2021 End: 05-16-2022 Start: 03-17-2021 End: 05-16-2022 benztropine mesylate 2 mg or al tablet (20 sources) Anticholinergic, Antihistamine Start: 12-17-2012 End: 04-02-2013 168 hr buprenorphine 0.02 mg /hr transdermal system (20 sources) Partial Opioid Agonist Start: 01-30-2023 End: 07-25-2023 Start: 01-30-2023 apply 1 dose transde rmal route every week Buprenorphine Active 1 PATCH TD EVERY WEEK January 30, 2023 1:00am Start: 05-16-2022 End: 01-30-2023 Start: 05-16-2022 End: 01-30-2023 apply 1 dose transdermal route every week Buprenorphine Discontinued 1 PATCH TD EVERY WEEK May 16, 2022 1:00am January 30, 2023 10:59am Start: 08-15-2021 End: 05-16-2022 Start: 08-15-2021 End: 05-16-2022 apply 1 dose transdermal route every week Buprenorphine Discontinued 1 PATCH TD EVERY WEEK August 15, 2021 12:00am May 16, 2022 9:00am 24 hr buPROPion hydrochlorid e 300 mg extended release oral tablet (20 sources) Aminoketone Start: 04-23-2014 End: 04-24-2014 cephalexin 500 mg oral capsu le (11 sources) Cephalosporin Antibacterial Start: 01-23-2024 End: 04-03-2024 chlorhexidine gluconate 40 m g/ml medicated liquid soap (20 sources) Start: 11-25-2023 End: 04-03-2024 cholecalciferol 1.25 mg oral capsule (20 sources) Vitamin D Start: 10-08-2017 End: 11-26-2018 Start: 10-08-2017 End: 11-26-2018 Cholecalciferol (Vitamin D3) Discontinued [id number] UNIT PO TH October 08, 2017 12:00am November 26, 2018 2:58pm cholestyramine resin 4000 mg powder for oral suspension (20 sources) Bile Acid Sequestrant Start: 11-10-2019 End: 12-18-2019 ciprofloxacin 3 mg/ml / dexamethasone 1 mg/ml otic suspension (11 sources) Corticosteroid, Quinolone Antimicrobial Start: 08-27-2023 End: 11-14-2023 citalopram 40 mg oral tablet (20 sources) Serotonin Reuptake Inhibitor Start: 04-02-2013 End: 04-03-2013 clindamycin 150 mg oral caps ule (20 sources) Lincosamide Antibacterial Start: 01-13-2020 End: 02-25-2020 diazePAM 5 mg oral tablet (20 sources) Benzodiazepine Start: 12-16-2012 End: 12-17-2012 diclofenac sodium 0.01 mg/mg topical gel (20 sources) Nonsteroidal Anti-inflammatory Drug Start: 08-05-2020 End: 09-09-2023 Start: 08-05-2020 apply 4 g topically once Diclo fenac Sodium Active 4 GM TOPICAL ONCE 100 August 05, 2020 12:00am apply to single knee, ankle, foot; for foot includes sole/toes/top of foot doxycycline monohydrate 100 mg oral capsule (11 sources) Tetracycline-class Drug Start: 04-05-2024 End: 04-20-2024 esomeprazole 40 mg delayed r elease oral capsule (20 sources) Proton Pump Inhibitor Start: 11-01-2018 End: 11-26-2018 ferrous sulfate 325 mg oral tablet (20 sources) Start: 09-11-2016 End: 11-26-2018 Start: 12-17-2012 End: 04-02-2013 haloperidol 0.5 mg oral tabl et (20 sources) Typical Antipsychotic Start: 01-07-2020 End: 03-01-2021 hydroCHLOROthiazide 12.5 mg oral tablet (20 sources) Thiazide Diuretic Start: 04-03-2024 End: 04-03-2024 Start: 10-25-2021 End: 02-05-2024 Start: 05-14-2019 End: 10-27-2019 Start: 05-14-2019 End: 05-14-2019 take 25 mg by mouth once daily Hydrochlorothiazide Discontinued 25 MG PO DAILY May 14, 2019 10:01am May 14, 2019 10:03am Start: 12-23-2018 End: 05-14-2019 hyoscyamine sulfate 0.125 mg sublingual tablet (20 sources) Start: 11-26-2018 End: 05-14-2019 ketorolac tromethamine 10 mg oral tablet (20 sources) Nonsteroidal Anti-inflammatory Drug, Cyclooxygenase Inhibitor Start: 07-16-2019 End: 07-26-2019 levothyroxine sodium 0.025 m g oral tablet (20 sources) l-Thyroxine Start: 03-28-2015 End: 07-25-2023 Start: 12-17-2012 End: 04-02-2013 LORazepam 1 mg oral tablet (20 sources) Benzodiazepine Start: 10-25-2021 End: 07-16-2023 Start: 06-30-2019 End: 03-01-2021 Start: 08-22-2016 End: 11-26-2018 menthol 0.04 mg/mg topical g el (11 sources) Start: 09-09-2023 End: 04-03-2024 methocarbamol 750 mg oral ta blet (20 sources) Muscle Relaxant Start: 07-14-2019 End: 03-01-2021 Start: 07-21-2018 End: 07-06-2019 Start: 07-21-2018 End: 07-06-2019 take 1 tablet by mouth three times daily Methocarbamol (Robaxin-750) 750 mg tablet Discontinued 750 MG PO THREE TIMES A DAY 60 June 05, 2019 2:28pm July 06, 2019 9:15am methylPREDNISolone acetate 40 mg/ml injectable suspension (2 sources) Corticosteroid Start: 07-18-2020 End: 07-18-2020 Depo-Medrol (methylprednisolone acetate) 40 mg/mL suspension for injection Discontinued 40 MG intrabursal ONCE 1 July 18, 2020 1:38pm July 18, 2020 2:51pm metoprolol tartrate 100 mg oral tablet (20 sources) beta-Adrenergic Mirna Start: 11-10-2019 End: 04-26-2023 Start: 12-01-2018 End: 11-10-2019 Start: 12-01-2018 End: 11-10-2019 take 50 mg by mouth twice daily Metoprolol Tartrate Discontinued 50 MG PO TWICE A DAY 180 September 15, 2019 10:07pm November 10, 2019 2:23pm Start: 03-28-2015 End: 12-01-2018 Start: 03-28-2015 End: 12-01-2018 24 hr nicotine 0.292 mg/hr transdermal system (14 sources) Cholinergic Nicotinic Agonist Start: 01-30-2023 End: 07-25-2023 Start: 01-30-2023 apply 1 dose transde rmal route every twenty-four hours Nicotine Active 1 PATCH TD Q24H January 30, 2023 1:00am nitroglycerin 0.4 mg subling ual tablet (20 sources) Nitrate Vasodilator Start: 10-08-2018 End: 11-26-2018 Start: 10-08-2018 End: 11-26-2018 Nitroglycerin Discontinued 0 .4 MG SL every 5 to 15 minutes October 08, 2018 12:00am November 26, 2018 2:57pm Start: 06-25-2016 nitroglycerin sublingual (NITROQUICK) 0.4 mg SL tablet Dissolve 1 tablet under the tongue as needed. FOR CHEST PAIN. IF NO RELIEF CALL 911 25 tablet 3 06/25/2016 Active Drug Treatment Unknown - unknown (1 source) No information available. omeprazole 40 mg delayed release oral capsule (20 sources) Proton Pump Inhibitor Start: 11-26-2018 End: 09-10-2024 Start: 11-26-2018 End: 03-06-2023 Start: 12-16-2015 End: 04-18-2016 Start: 12-17-2012 End: 04-02-2013 Start: 12-17-2012 End: 04-02-2013 take 20 mg by mouth once daily Omeprazole Discontinued 20 MG PO DAILY December 17, 2012 12:00am April 02, 2013 1:04pm Start: 12-16-2012 End: 12-17-2012 Start: 12-16-2012 End: 12-17-2012 penicillin v potassium 500 m g oral tablet (11 sources) Start: 04-15-2024 End: 05-12-2024 microencapsulated potassium chloride 20 meq extended release oral tablet (20 sources) Start: 10-30-2019 End: 01-30-2023 Start: 10-30-2019 End: 01-30-2023 pravastatin sodium 40 mg ora l tablet (20 sources) HMG-CoA Reductase Inhibitor Start: 12-17-2012 End: 04-02-2013 Start: 12-17-2012 End: 04-02-2013 take 40 mg by mouth at bedtime Pravastatin Discontinue d 40 MG PO AT BEDTIME December 17, 2012 12:00am April 02, 2013 1:04pm predniSONE 20 mg oral tablet (11 sources) Start: 04-05-2024 End: 04-20-2024 promethazine hydrochloride 2 5 mg oral tablet (20 sources) Phenothiazine Start: 10-22-2019 End: 11-03-2021 Start: 10-22-2019 End: 04-05-2021 take 25 mg by mouth every six hours Promethazine Discontinued 25 MG PO EVERY 6 HOURS March 24, 2021 1:04pm April 05, 2021 4:54pm Start: 01-22-2019 End: 10-27-2019 Start: 10-28-2018 End: 11-26-2018 risperiDONE 2 mg oral tablet (20 sources) Atypical Antipsychotic Start: 12-17-2012 End: 04-02-2013 sucralfate 1000 mg oral tabl et (20 sources) Aluminum Complex Start: 10-08-2018 End: 11-26-2018 tiZANidine 4 mg oral tablet (20 sources) Central alpha-2 Adrenergic Agonist Start: 05-16-2022 End: 08-26-2023 Start: 03-01-2021 End: 03-17-2021 24 hr tolterodine tartrate 4 mg extended release oral capsule (20 sources) Cholinergic Muscarinic Antagonist Start: 12-09-2018 End: 12-10-2018 Start: 04-18-2016 End: 11-26-2018 traMADol hydrochloride 50 mg oral tablet (20 sources) Opioid Agonist Start: 02-25-2020 End: 03-01-2021 venlafaxine 37.5 mg oral tablet (20 sources) Serotonin and Norepinephrine Reuptake Inhibitor Start: 02-25-2020 End: 05-26-2020 Miguelangel (7 sources) Start: 10-17-2022 End: 10-17-2022 Miguelangel Discontinued 0 .Route 1 October 16, 2022 11:00pm October 17, 2022 3:33pm As directed Start: 10-17-2022 End: 10-17-2022 Miguelangel Discontinued 0 .Route 1 October 17, 2022 12:00am October 17, 2022 4:33pm As directed zolpidem tartrate 10 mg oral tablet (20 sources) gamma-Aminobutyric Acid-ergic Agonist Start: 06-30-2019 End: 03-01-2021 Start: 06-30-2019 End: 03-01-2021 take 10 mg by mouth at bedtime Zolpidem Discontinued 1 0 MG PO AT BEDTIME June 30, 2019 12:00am March 01, 2021 12:26pm Start: 09-11-2016 End: 11-26-2018 Start: 09-11-2016 End: 11-26-2018 take 10 mg by mouth at bedtime Zolpidem Discontinued 1 0 MG PO AT BEDTIME September 11, 2016 12:00am November 26, 2018 2:57pm Problems Active Problems Problem Classification Problem Date Documented Da te Episodic/Chronic Acute and unspecified renal failure (20 sources) Injury of kidney; Translations: [Acute kidney failure, unspecified] Onset: 07-03-2024 12-20-2020 Episodic Administrative/social admission (2 sources) Encounter for examination for admission to residential institution; Translations: [Other specified general medical examinations] 03-26-2023 Episodic Anxiety disorders (18 sources) Mixed anxiety and depressive disorder; Translations: [Anxiety disorder, unspecified] Onset: 07-03-2024 07-31-2023 Chronic Aspiration pneumonitis; food/vomitus (20 sources) Aspiration pneumonitis; Translations: [Pneumonitis due to inhalation of food and vomit] 12-20-2020 Episodic Cardiac dysrhythmias (20 sources) Sinus node dysfunction; Translations: [Ventricular tachycardia, monomorphic] Onset: 08-22-2006 03-30-2013 Chronic Cardiac dysrhythmias (20 sources) Intermittent palpitations; Translations: [Palpitations] 01-13-2020 Episodic Chronic obstructive pulmonary disease and bronchiectasis (20 sources) Acute exacerbation of chronic obstructive airways disease; Translations: [Chronic obstructive pulmonary disease with (acute) exacerbation] Onset: 04-06-2024 12-20-2020 Chronic Conduction disorders (20 sources) Cardiac pacemaker in situ; Translations: [Presence of cardiac pacemaker] Onset: 02-21-2007 03-12-2013 Chronic Congestive heart failure; nonhypertensive (7 sources) Heart failure with normal ejection fraction; Translations: [Unspecified diastolic (congestive) heart failure] Onset: 07-03-2024 07-03-2024 Chronic Coronary atherosclerosis and other heart disease (20 sources) Coronary atherosclerosis; Translations: [Atherosclerotic heart disease of [place] coronary artery without angina pectoris] Onset: 06-11-2024 Chronic Diabetes mellitus without complication (20 sources) Type 2 diabetes mellitus; Translations: [Type 2 diabetes mellitus without complications] Onset: 07-03-2024 04-21-2024 Chronic Diabetes mellitus without complication (8 sources) Diabetes mellitus without complication Diseases of white blood cells (20 sources) Leukocytosis; Translations: [Elevated white blood cell count, unspecified] Onset: 04-20-2024 05-17-2022 Chronic Disorders of lipid metabolism (20 sources) Hyperlipidemia; Translations: [Hyperlipidemia, unspecified] Onset: 12-02-2023 Chronic E Codes: Fall (20 sources) Fall; Translations: [Unspecified fall, initial encounter] 11-13-2022 Episodic Essential hypertension (20 sources) Essential hypertension; Translations: [Essential (primary) hypertension] Onset: 12-02-2023 Chronic Fluid and electrolyte disorders (20 sources) Hypokalemia; Translations: [Hypokalemia] 01-06-2021 Episodic Headache; including migraine (11 sources) Migraine; Translations: [Migraine, unspecified, not intractable, without status migrainosus] 07-31-2023 Chronic Malignant neoplasm without specification of site (20 sources) Primary malignant neuroendocrine neoplasm of stomach; Translations: [Other malignant neuroendocrine tumors] Onset: 04-15-2024 Chronic Mood disorders (20 sources) Depressive disorder; Translations: [Depression] Onset: 07-22-2024 05-29-2019 Chronic Nausea and vomiting (20 sources) Nausea, vomiting and diarrhea; Translations: [Nausea with vomiting, unspecified] 12-02-2019 Episodic Osteoarthritis (20 sources) Osteoarthritis; Translations: [Unspecified osteoarthritis, unspecified site] 08-05-2020 Chronic Other aftercare (20 sources) Polypharmacy ; Translations: [Other snf (current) drug therapy] 11-03-2021 Episodic Other aftercare (4 sources) Other termite control representative (current) drug therapy; Translations: [Long-term (current) use of other medications] Episodic Other and unspecified benign neoplasm (1 source) Neuroendocrine tumor; Translations: [Other malignant neuroendocrine tumors] Episodic Other connective tissue disease (20 sources) Trochanteric bursitis; Translations: [Trochanteric bursitis, left hip] 08-14-2021 Episodic Other connective tissue disease (20 sources) Spasm; Translations: [Other muscle spasm] 08-14-2021 Episodic Other connective tissue disease (20 sources) Thigh pain; Translations: [Pain in left thigh] 10-23-2019 Episodic Other connective tissue disease (20 sources) Pain in left lower limb; Translations: [Pain in left leg] 07-18-2020 Episodic Other connective tissue disease (19 sources) Pain in thumb ; Translations: [Pain in left finger(s)] 05-16-2022 Episodic Other connective tissue disease (1 source) Pain in left finger(s); Translations: [Pain in limb] 05-16-2022 Episodic Other connective tissue disease (11 sources) Pain in lower limb; Translations: [Pain in leg, unspecified] 05-21-2024 Episodic Other connective tissue disease (9 sources) Other symptoms and signs involving the musculoskeletal system; Translations: [Other musculoskeletal symptoms referable to limbs] Onset: 07-03-2024 07-03-2024 Episodic Other ear and sense organ disorders (20 sources) Otitis externa; Translations: [Unspecified otitis externa, left ear] 09-05-2023 Chronic Other female genital disorders (1 source) Unspecified condition associated with female genital organs and menstrual cycle; Translations: [Unspecified condition associated with female genital organs and menstrual cycle] Onset: 07-28-2024 Episodic Other fractures (9 sources) Closed fracture thoracic vertebra; Translations: [Unspecified fracture of T7-T8 vertebra, initial encounter for closed fracture] 06-29-2024 Episodic Other gastrointestinal disorders (20 sources) Diarrhea; Translations: [Diarrhea, unspecified] 08-14-2021 Episodic Other gastrointestinal disorders (20 sources) Acute diarrhea; Translations: [Diarrhea, unspecified] 10-23-2019 Episodic Other hematologic conditions (20 sources) Erythrocytosis; Translations: [Secondary polycythemia] 12-02-2019 Episodic Other injuries and conditions due to external causes (20 sources) Closed injury of head; Translations: [Unspecified injury of head, initial encounter] 10-30-2021 Episodic Other injuries and conditions due to external causes (1 source) Contusion of rib; Translations: [Other specified injuries of thorax, initial encounter] 01-18-2024 Episodic Other liver diseases (20 sources) Enzyme level - finding; Translations: [Transaminasemia] 12-20-2020 Episodic Other lower respiratory disease (19 sources) Hypoxia; Translations: [Hypoxemia] 04-13-2024 Episodic Other lower respiratory disease (20 sources) Dyspnea on exertion; Translations: [Other forms of dyspnea] 06-11-2024 Episodic Other nervous system disorders (20 sources) Chronic pain; Translations: [Other chronic pain] 01-07-2020 Chronic Other nervous system disorders (20 sources) Disorder of brain; Translations: [Encephalopathy, unspecified] 10-30-2021 Chronic Other nervous system disorders (4 sources) Encephalopathy, unspecified; Translations: [Encephalopathy, unspecified] Chronic Other nervous system disorders (19 sources) Chronic pain syndrome; Translations: [Chronic pain syndrome] 06-04-2024 Chronic Other nervous system disorders (6 sources) Thoracic myelopathy; Translations: [Other spondylosis with myelopathy, thoracic region] 07-07-2024 Chronic Other nervous system disorders (8 sources) Walking disability; Translations: [Difficulty in walking, not elsewhere classified] 07-22-2024 Chronic Other nervous system disorders (2 sources) Other chronic pain; Translations: [Acute on chronic back pain] Onset: 07-03-2024 Chronic Other nervous system disorders (1 source) Difficulty in walking, not elsewhere classified; Translations: [Difficulty in walking, not elsewhere classified] Onset: 07-22-2024 Chronic Other nervous system disorders (20 sources) Paresthesia of lower extremity; Translations: [Paresthesia of skin] 06-26-2020 Episodic Other non-traumatic joint disorders (20 sources) Hip pain; Translations: [Pain in left hip] 07-18-2020 Episodic Other non-traumatic joint disorders (16 sources) Effusion of right knee joint; Translations: [Effusion, right knee] 11-24-2022 Episodic Other nutritional; endocrine; and metabolic disorders (7 sources) Severe obesity; Translations: [Class 3 severe obesity in adult] Onset: 07-03-2024 07-03-2024 Chronic Other nutritional; endocrine; and metabolic disorders (8 sources) Body mass index 40+ - severely obese; Translations: [Obesity, Class III, BMI 40-49.9 (morbid obesity)] Onset: 07-03-2024 07-03-2024 Chronic Other skin disorders (11 sources) Mass of shoulder region; Translations: [Localized swelling, mass and lump, unspecified upper limb] 07-16-2023 Episodic Other skin disorders (11 sources) Skin lesion; Translations: [Disorder of the skin and subcutaneous tissue, unspecified] 07-31-2023 Episodic Other upper respiratory disease (20 sources) Acute bronchospasm; Translations: [Acute bronchospasm] 12-20-2020 Episodic Poisoning by other medications and drugs (20 sources) Overdose of opiate; Translations: [Poisoning by unspecified narcotics, accidental (unintentional), initial encounter] 12-20-2020 Episodic Pulmonary heart disease (7 sources) H/O: pulmonary embolus; Translations: [Personal history of pulmonary embolism] Onset: 07-03-2024 07-03-2024 Episodic Residual codes; unclassified (20 sources) Obstructive sleep apnea syndrome; Translations: [Obstructive sleep apnea (adult) (pediatric)] Onset: 07-03-2024 12-02-2019 Chronic Residual codes; unclassified (2 sources) Obstructive sleep apnea (adult) (pediatric); Translations: [Obstructive sleep apnea (adult)(pediatric)] 03-26-2023 Chronic Residual codes; unclassified (8 sources) Hypersomnia; Translations: [Hypersomnia, unspecified] 07-22-2024 Chronic Residual codes; unclassified (2 sources) Hypersomnia, unspecified; Translations: [Hypersomnia, unspecified] Onset: 07-22-2024 Chronic Residual codes; unclassified (1 source) Family history of cancer of colon; Translations: [Family history of colon cancer] Episodic Residual codes; unclassified (20 sources) Tobacco user; Translations: [Tobacco use] 12-20-2020 Episodic Residual codes; unclassified (11 sources) Peripheral edema; Translations: [Localized edema] 05-21-2024 Episodic Respiratory failure; insufficiency; arrest (adult) (20 sources) Acute respiratory failure; Translations: [Acute respiratory failure with hypoxia] 12-20-2020 Episodic Septicemia (except in labor) (20 sources) Sepsis; Translations: [Sepsis, unspecified organism] 12-20-2020 Episodic Spondylosis; intervertebral disc disorders; other back problems (8 sources) Degeneration of lumbosacral intervertebral disc; Translations: [Degeneration of lumbar or lumbosacral intervertebral disc] Onset: 02-18-2014 Chronic Spondylosis; intervertebral disc disorders; other back problems (20 sources) Chronic back pain ; Translations: [Dorsalgia, unspecified] Onset: 02-18-2014 10-30-2021 Episodic Substance-related disorders (20 sources) Tobacco dependence, continuous; Translations: [Nicotine dependence, unspecified, with unspecified nicotine-induced disorders] Onset: 11-25-2023 Chronic Substance-related disorders (20 sources) PCP intoxication; Translations: [Hallucinogen use, unspecified with intoxication, unspecified] 12-20-2020 Episodic Superficial injury; contusion (20 sources) Contusion of sacral region; Translations: [Contusion of lower back and pelvis, initial encounter] 12-02-2019 Episodic Thyroid disorders (20 sources) Hypothyroidism; Translations: [Hypothyroidism, unspecified] Onset: 07-03-2024 01-30-2023 Chronic Unclassified (1 source) Weakness of both lower extremities 08-05-2024 Urinary tract infections (12 sources) Urinary tract infectious disease; Translations: [Urinary tract infection, site not specified] 01-27-2024 Episodic Past or Other Problems Problem Classification Problem Date Documented Da te Episodic/Chronic Abdominal pain (20 sources) Right upper quadrant pain; Translations: [Right upper quadrant pain] Onset: 05-23-2024 11-02-2018 Episodic Conditions associated with dizziness or vertigo (20 sources) Dizziness; Translations: [Dizziness and giddiness] Onset: 07-02-2024 06-11-2024 Episodic Diabetes mellitus without complication (20 sources) Hyperglycemia; Translations: [Hyperglycemia, unspecified] Onset: 04-20-2024 04-20-2024 Episodic Disorders of teeth and jaw (20 sources) Dental caries; Translations: [Dental caries, unspecified] Onset: 04-30-2024 08-14-2021 Episodic Genitourinary symptoms and ill-defined conditions (20 sources) Bacteriuria; Translations: [Bacteriuria] Onset: 05-05-2024 10-30-2021 Episodic Malaise and fatigue (20 sources) Asthenia; Translations: [Other malaise] Onset: 06-11-2024 01-30-2023 Episodic Nonspecific chest pain (20 sources) Chest pain; Translations: [Chest pain, unspecified] Onset: 06-11-2024 Episodic Other bone disease and musculoskeletal deformities (13 sources) Osteopenia; Translations: [Other specified disorders of bone density and structure, unspecified site] Onset: 03-11-2022 03-26-2023 Episodic Other bone disease and musculoskeletal deformities (2 sources) Other specified disorders of bone density and structure, unspecified site; Translations: [Disorder of bone and cartilage, unspecified] Onset: 03-11-2022 03-26-2023 Episodic Other circulatory disease (7 sources) Orthostatic hypotension; Translations: [Orthostatic hypotension] Onset: 05-14-2005 Resolved: 08-15-2006 07-07-2024 Episodic Other disorders of stomach and duodenum (7 sources) Mass of stomach; Translations: [Other diseases of stomach and duodenum] Onset: 05-30-2017 05-30-2017 Episodic Other injuries and conditions due to external causes (1 source) Unspecified injury of unspecified lower leg, initial encounter; Translations: [Unspecified injury of unspecified lower leg, initial encounter] Onset: 06-01-2024 Episodic Other lower respiratory disease (2 sources) Other forms of dyspnea; Translations: [Other forms of dyspnea] Onset: 06-16-2024 Episodic Other screening for suspected conditions (not mental disorders or infectious disease) (20 sources) Patient encounter status; Translations: [Encounter for screening for malignant neoplasm of respiratory organs] Onset: 11-25-2023 Episodic Phlebitis; thrombophlebitis and thromboembolism (12 sources) Deep venous thrombosis; Translations: [Acute embolism and thrombosis of unspecified deep veins of unspecified lower extremity] Onset: 05-13-2024 05-12-2024 Episodic Rehabilitation care; fitting of prostheses; and adjustment of devices (1 source) Encounter for adjustment and management of neurostimulator; Translations: [Encounter for adjustment and management of neurostimulator] Onset: 11-08-2023 Episodic Screening and history of mental health and substance abuse codes (12 sources) Tobacco use and exposure - finding; Translations: [Personal history of nicotine dependence] Onset: 11-25-2023 11-13-2023 Episodic Skin and subcutaneous tissue infections (7 sources) Carbuncle; Translations: [Furuncle, unspecified] Onset: 10-29-2005 07-07-2024 Episodic Sprains and strains (20 sources) Low back strain; Translations: [Strain of muscle, fascia and tendon of lower back, initial encounter] Onset: 10-25-2023 12-02-2019 Episodic Syncope (8 sources) Syncope and collapse; Translations: [Syncope and collapse] Onset: 08-15-2006 Resolved: 12-13-2015 03-30-2013 Episodic Results Test Name Value Interpretation Reference Range Facility Internal Medicine Office Vis estefany 10-02-2024 Internal Medicine Office Visit [facility] Kevyn 08-10-2024 YESI Telephone ([employer]) RAMSES BRADSHAW ([id number]) 1965 F Date Time Provider Department 08/10/24 BUTCH MAYS During your visit today, we recorded the following information about you: Katrin Peng 08/10/2024 8:01 AM Signed [facility], however patient was released from them in 2014. No reason given. Please advise Allergies As of Date: 08/10/2024 Noted Allergy Reaction ASA (SALICYLATES) 11/14/2004 8 - GI Upset ERYTHROMYCIN 11/14/2004 11 - Vomiting Comments: Vomiting AND diarrhea IBUPROFEN 11/14/2004 8 - GI Upset LATEX 06/30/2010 14 - Other: See Comments Comments: Pt reports reaction to Latex, adhesives, EKG stickers w/ skin irritation at times...causes redness AND blisters NSAIDS (NON-STEROIDAL ANTI-INFLAM*02/23/2014 6 - Diarrhea 11 - Vomiting Date Reviewed: 08/05/2024 Reviewed by: Vania Ladd MA - Fully Assessed Reason for Visit: Appointment [[id number]] Prescriptions as of 2024 - isosorbide mononitrate ER (IMDUR) 60 mg 24 hr tablet Take 60 mg by mouth once daily. - denosumab (PROLIA) 60 mg/mL Inject 60 mg subcutaneously once every 6 months. - omeprazole (PRILOSEC) 40 mg capsule Take 40 mg by mouth once daily. - Fenofibrate (LOFIBRA) 54 mg tablet Take 54 mg by mouth once daily. - SUMAtriptan (IMITREX) 50 mg tablet Take 50 mg by mouth as needed for migraine headache (see administration instructions). May repeat dose after 2 hours if needed. Maximum daily dose is 200 mg per day. - rosuvastatin (CRESTOR) 20 mg tablet Take 20 mg by mouth daily at bedtime. - traZODone (DESYREL) 150 mg tablet Take 150 mg by mouth daily at bedtime. - traZODone (DESYREL) 50 mg tablet Take 50 mg by mouth daily at bedtime. - cyclobenzaprine (FLEXERIL) 10 mg tablet Take 10 mg by mouth two times a day as needed for muscle spasm. - busPIRone (BUSPAR) 5 mg tablet Take 5 mg by mouth two times a day. - busPIRone (BUSPAR) 15 mg tablet Take 15 mg by mouth two times a day. - glimepiride (AMARYL) 2 mg tablet Take 2 mg by mouth two times a day with meals. - apixaban (ELIQUIS) 5 mg tab(s) Take 5 mg by mouth two times a day. - clonazePAM (KLONOPIN) 0.5 mg tablet Take 0.5 mg by mouth four times daily. - lisinopril (ZESTRIL, PRINIVIL) 20 mg tablet TAKE 1 TABLET BY MOUTH TWICE A DAY - gabapentin (NEURONTIN) 300 mg capsule Take 300 mg by mouth four times daily. - amLODIPine (NORVASC) 5 mg tablet Take 5 mg by mouth two times a day. - metoprolol tartrate, short acting, (LOPRESSOR) 25 mg tablet Take 100 mg by mouth two times a day. - pantoprazole DR (PROTONIX) 40 mg tablet Take 40 mg by mouth twice daily. - nitroglycerin sublingual (NITROQUICK) 0.4 mg SL tablet Dissolve 1 tablet under the tongue as needed. FOR CHEST PAIN. IF NO RELIEF CALL 911 - DULoxetine (CYMBALTA) 60 mg capsule Take 60 mg by mouth once daily. - Ferrous Fumarate 325 mg (106 mg iron) tab Take 325 mg by mouth twice daily. - levothyroxine (LEVOTHROID) 25 mcg tablet Take 25 mcg by mouth once daily. - oxyCODONE-acetaminophen (PERCOCET) 10-325 mg tablet Take 1 tablet by mouth every 6 hours as needed. Problem List As Of Date 08/10/2024 Noted Resolved ORTHOSTATIC HYPOTENSION [I95.1] 05/14/2005 08/15/2006 CARBUNCLE NOS [L02.92, L02.93] 10/29/2005 Syncope and collapse [R55] 08/15/2006 12/13/2015 SINOATRIAL NODE DYSFUNCT [I49.5] 08/22/2006 Cardiac pacemaker in situ [Z95.0] 02/21/2007 Spinal stenosis, lumbar region, with neurogenic*02/18/2014 Degeneration of lumbar or lumbosacral intervert*02/18/2014 Gastric mass [K31.89] 05/30/2017 Back pain due to injury [M54.9] 07/03/2024 Leg weakness, bilateral [R29.898] 07/03/2024 Hypothyroidism [E03.9] 07/03/2024 Class 3 severe obesity in adult [E66.813] 07/03/2024 Essential hypertension [I10] 07/03/2024 COPD (chronic obstructive pulmonary disease) (H*07/03/2024 Controlled type 2 diabetes mellitus without com*07/03/2024 History of pulmonary embolus (PE) [Z86.711] 07/03/2024 Atrial fibrillation (HCC) [I48.91] 07/03/2024 Hyperlipidemia [E78.5] 07/03/2024 Tobacco use disorder [F17.200] 07/03/2024 ELOY (obstructive sleep apnea) [G47.33] 07/03/2024 Heart failure with preserved ejection fraction *07/03/2024 ARMANI (acute kidney injury) [N17.9] 07/03/2024 Obesity, Class III, BMI >= 40 [E66.813] 07/03/2024 Encounter Status:Closed by KATRIN PENG [facility]12[facility] Visit ([facility] ) RAMSES BRADSHAW ([id number]) 1965 F Date Time Provider Department 08/05/24 10:00 AM BUTCH MAYS [facility] During your visit today, we recorded the following information about you: Weight Height 101.6 kg 1.575 m Vania Ladd MA 08/05/2024 11:04 PM Signed 58 y/o female presents to office to discuss MRI results of the cervical and thoracic spine. Butch Mays MD 08/05/2024 11:04 PM Signed Butch Mays MD Orthopaedic Spine Surgery [address], [address], [place] [address] FAX: [phone] Spine Surgery Outpatient Note Service Date: 08/05/2024 Chief Complaint: Follow-up visit for bilateral lower extremity weakness History of Present Illness Ramses Bradshaw is a 58 year old female with who was last seen as an in hospital consultation on 07/03/24 for chief complaint of thoracic back pain and bilateral lower extremity weakness. At our prior visit I recommended MRI. Ramses Bradshaw presents today for review of imaging and plan of care discussion. Summary of Symptoms Pain Location: Thoracic spine Radiation of Pain: Weakness: Bilateral lower extremities Dexterity Issues: No Imbalance: No Falls: No Bowel/Bladder Dysfunction: No Change in Symptoms: No Prior Conservative Treatment Physical Therapy: Yes Medications: Flexeril, Gabapentin, Percocet Pain Management: No Injections: No Surgery: L4-5 PSDF Other: No The following portions of the patient's history were reviewed and updated as appropriate: allergies, current medications, past family history, past medical history, past social history, past surgical history and problem list. ACTIVE PROBLEM LIST Carbuncle and Furuncle of Unspecified Site Sinoatrial Node Dysfunction (Hcc) Cardiac Pacemaker in Situ Spinal Stenosis, Lumbar Region, With Neurogenic Claudication Degeneration of Lumbar Or Lumbosacral Intervertebral Disc Gastric Mass Back Pain Due to Injury Leg Weakness, Bilateral Hypothyroidism Class 3 Severe Obesity in Adult Essential Hypertension Copd (Chronic Obstructive Pulmonary Disease) ([facility]) Controlled Type 2 Diabetes Mellitus Without Complication, Without Long-Term Current Use of Insulin ([facility]) History of Pulmonary Embolus (Pe) Atrial Fibrillation ([facility]) Hyperlipidemia Tobacco Use Disorder Eloy (Obstructive Sleep Apnea) Heart Failure With Preserved Ejection Fraction ([facility]) Armani (Acute Kidney Injury) Obesity, Class III, BMI >= 40 PAST MEDICAL HISTORY Diagnosis Date Anxiety Atrial fibrillation ([facility]) 07/03/2024 CAD (coronary artery disease) 07/03/2024 Congestive heart failure ([facility]) 07/03/2024 Controlled type 2 diabetes mellitus without complication, without long-term current use of insulin ([facility]) 07/03/2024 COPD (chronic obstructive pulmonary disease) ([facility]) 07/03/2024 Depression Gastric mass Hypertension Hypothyroid ELOY (obstructive sleep apnea) 07/03/[address] [place] . pacemaker checked [facility] Sick sinus syndrome (HCC) Sleep apnea uses cpap at night PAST SURGICAL HISTORY Procedure Laterality Date ANESTHESIA LUMBAR REGION NOS 02/07/2016 L4-L5 fusion; [facility] APPENDECTOMY CARPAL TUNNEL left HYSTERECTOMY HX LAPAROSCOPY DIAGNOSTIC NEUROPLASTY AND/TRANSPOSITION ULNAR NERVE ELBOW bilateral- with revisions PACEMAKER (PM) 2003 PAST SURGICAL HISTORY OF lumbar pain injections. FAMILY HISTORY Problem Relation Age of Onset Multiple Sclerosis Father 26 at age 41 Multiple Sclerosis Daughter 30 dx Mar 2016 other (orthostatic hypotension) Sister Social History Tobacco Use Smoking status: Former Current packs/day: 0.00 Average packs/day: 0.5 packs/day for 25.0 years (12.5 ttl pk-yrs) Types: Cigarettes Start date: 05/21/1990 Quit date: 05/22/2015 Years since quittin.2 Smokeless tobacco: Never Tobacco comments: quit 2 years ago Substance Use Topics Alcohol use: No Drug use: No Comment: Heavy EtOH use johana2000. ALLERGIES Allergen Reactions Asa [Salicylates] GI Upset Erythromycin Vomiting Vomiting AND diarrhea Ibuprofen GI Upset Latex Other: See Comments Pt reports reaction to Latex, adhesives, EKG stickers w/ skin irritation at times...causes redness AND blisters Nsaids (Non-Steroid* Diarrhea, Vomiting Medications: isosorbide mononitrate ER (IMDUR) 60 mg 24 hr tablet Take 60 mg by mouth once daily. omeprazole (PRILOSEC) 40 mg capsule Take 40 mg by mouth once daily. Fenofibrate (LOFIBRA) 54 mg tablet Take 54 mg by mouth once daily. SUMAtriptan (IMITREX) 50 mg tablet Take 50 mg by mouth as needed for migraine headache (see administration instructions). May repeat dose after 2 hours if needed. Maximum daily dose is 200 mg per day. rosuvastatin (CRESTOR) 20 mg tablet Take 20 mg by mouth daily at bedtime. traZO (more content not included)... Normal [facility] MR Cervical spine WO larry hebert 08-04-2024 * * *Final Report* * * DATE OF EXAM: Aug 04 2024 4:14PM [facility] 0297 - MRI CERVICAL SPINE WO IVCON / PROCEDURE REASON: Spinal stenosis of cervical region * * * * Physician Interpretation * * * * EXAMINATION: MRI CERVICAL SPINE WO IVCON CLINICAL HISTORY: Spinal stenosis of cervical region TECHNIQUE: Routine cervical spine MR protocol without gadolinium. MQ: MRCSPWO_3 COMPARISON: CT cervical spine dated 01/08/2018. RESULT: Evaluation limited by motion within the limitation, following observations are made. Counting reference: Craniocervical junction. Anatomic Variants: None. Localizer images: Non-diagnostic. Alignment: Alignment is anatomic. Craniocervical junction: Craniocervical junction is normal. Cord: The visualized cord is within normal limits of signal intensity and morphology. Bone marrow signal/fracture: No evidence of pathologic marrow infiltration. No evidence of prior fracture. Mild multilevel disc height loss. Cervical soft tissues: The paraspinal soft tissues are within normal limits. C2-C3: Canal and foramina are patent. Small disc osteophyte complex. Mild facet arthropathy. C3-C4: Small disc osteophyte complex, no canal stenosis. Mild RIGHT neural foraminal stenosis. C4-C5: Small disc osteophyte complex. No canal or neural foraminal stenosis stenosis. C5-C6: Canal and foramina are patent. Small disc osteophyte complex. C6-C7: Small disc osteophyte complex, superimposed central disc protrusion, abutment of ventral cord with mild deformation of ventral cord. No neural foraminal stenosis. Mild facet arthropathy. C7-T1: Small disc osteophyte complex superimposed central annular fissure. No canal stenosis or neural foraminal stenosis. [facility] Provider, [facility] - 08/04/2024 * * *Final Report* * * DATE OF EXAM: Aug 04 2024 4:14PM [facility] 0297 - MRI CERVICAL SPINE WO IVCON / PROCEDURE REASON: Spinal stenosis of cervical region * * * * Physician Interpretation * * * * EXAMINATION: MRI CERVICAL SPINE WO IVCON CLINICAL HISTORY: Spinal stenosis of cervical region TECHNIQUE: Routine cervical spine MR protocol without gadolinium. MQ: MRCSPWO_3 COMPARISON: CT cervical spine dated 01/08/2018. RESULT: Evaluation limited by motion within the limitation, following observations are made. Counting reference: Craniocervical junction. Anatomic Variants: None. Localizer images: Non-diagnostic. Alignment: Alignment is anatomic. Craniocervical junction: Craniocervical junction is normal. Cord: The visualized cord is within normal limits of signal intensity and morphology. Bone marrow signal/fracture: No evidence of pathologic marrow infiltration. No evidence of prior fracture. Mild multilevel disc height loss. Cervical soft tissues: The paraspinal soft tissues are within normal limits. C2-C3: Canal and foramina are patent. Small disc osteophyte complex. Mild facet arthropathy. C3-C4: Small disc osteophyte complex, no canal stenosis. Mild RIGHT neural foraminal stenosis. C4-C5: Small disc osteophyte complex. No canal or neural foraminal stenosis stenosis. C5-C6: Canal and foramina are patent. Small disc osteophyte complex. C6-C7: Small disc osteophyte complex, superimposed central disc protrusion, abutment of ventral cord with mild deformation of ventral cord. No neural foraminal stenosis. Mild facet arthropathy. C7-T1: Small disc osteophyte complex superimposed central annular fissure. No canal stenosis or neural foraminal stenosis. IMPRESSION IMPRESSION: 1. Evaluation limited by motion within the limitation, following observations are made. 2. Multilevel cervical spondylosis, most pronounced at C6-C7 with a small disc osteophyte complex and superimposed central disc protrusion, abutment of ventral cord with mild deformation of ventral cord. 3. Mild degenerative changes at other levels. No high-grade canal or neural foraminal stenosis. Anatomic Variant: None. Assume 7 cervical vertebrae with counting from the craniocervical junction. Communications Operator: [facility] Transcribe Date/Time: Aug 04 2024 4:34P Dictated by : JUSTIN MOSHER MD This examination was interpreted and the report reviewed and electronically signed by: JUSTIN MOSHER MD on Aug 04 2024 4:39PM EST [facility] MR Cervical spine WO contras tOrdered By: [facility] Provider on 08-04-2024 [facility] MR Thoracic spine WO contras ton 08-04-2024 * * *Final Report* * * DATE OF EXAM: Aug 04 2024 4:14PM [facility] 0325 - MRI THORACIC SPINE WO IVCON / PROCEDURE REASON: Thoracic myelopathy * * * * Physician Interpretation * * * * EXAMINATION: MRI THORACIC SPINE WO IVCON CLINICAL HISTORY: Thoracic myelopathy TECHNIQUE: Routine thoracic spine MR protocol. MQ: MTSWO_3 COMPARISON: CT thoracic spine dated 07/03/2024. RESULT: Artifact from the spinal cord stimulator lead limits evaluation of the dorsal canal and cord from T8 to T12. Counting reference: Craniocervical and lumbosacral junctions. For the purposes of this report, L4-5 is considered the level of the iliac crest and assume there are 5 lumbar-type vertebrae. Anatomic variant: None. Localizer images: Postsurgical changes in the lumbar spine at L4-L5. Alignment: Alignment is anatomic. Cord: The visualized cord is within normal limits of signal intensity and morphology. Bone marrow signal/fracture: No evidence of pathologic marrow infiltration. Mild superior endplate chronic compression fracture of T8, T7. Mild multilevel disc height loss. Thoracic paraspinal soft tissues: The paraspinal soft tissues are within normal limits. Canal and foramina: Small disc bulge at T7-T8. The thoracic canal and foramina are patent. [facility] Provider, [facility] - 08/04/2024 * * *Final Report* * * DATE OF EXAM: Aug 04 2024 4:14PM [facility] 0325 - MRI THORACIC SPINE WO IVCON / PROCEDURE REASON: Thoracic myelopathy * * * * Physician Interpretation * * * * EXAMINATION: MRI THORACIC SPINE WO IVCON CLINICAL HISTORY: Thoracic myelopathy TECHNIQUE: Routine thoracic spine MR protocol. MQ: MTSWO_3 COMPARISON: CT thoracic spine dated 07/03/2024. RESULT: Artifact from the spinal cord stimulator lead limits evaluation of the dorsal canal and cord from T8 to T12. Counting reference: Craniocervical and lumbosacral junctions. For the purposes of this report, L4-5 is considered the level of the iliac crest and assume there are 5 lumbar-type vertebrae. Anatomic variant: None. Localizer images: Postsurgical changes in the lumbar spine at L4-L5. Alignment: Alignment is anatomic. Cord: The visualized cord is within normal limits of signal intensity and morphology. Bone marrow signal/fracture: No evidence of pathologic marrow infiltration. Mild superior endplate chronic compression fracture of T8, T7. Mild multilevel disc height loss. Thoracic paraspinal soft tissues: The paraspinal soft tissues are within normal limits. Canal and foramina: Small disc bulge at T7-T8. The thoracic canal and foramina are patent. IMPRESSION IMPRESSION: 1. Artifact from the spinal cord stimulator lead limits evaluation of the dorsal canal and cord from T8 to T12. Within the limitation, no acute abnormality in the thoracic spine. 2. Small disc bulge at T7-T8. No significant canal or foraminal stenosis. Anatomic Thoracic/Lumbar Variant: None. L4-5 is considered the level of the iliac crest and assume there are 5 lumbar-type vertebrae. Communications Operator: [employer] Transcribe Date/Time: Aug 04 2024 4:51P Dictated by : JUSTIN MOSHER MD This examination was interpreted and the report reviewed and electronically signed by: JUSTIN MOSHER MD on Aug 04 2024 4:56PM [facility] MRI CERVICAL SPINE WO IVCONo n 08-04-2024 MRI CERVICAL SPINE WO IVCON * * *Final Report* * * DATE OF EXAM: Aug 04 2024 4:14PM [facility] 0297 - MRI CERVICAL SPINE WO IVCON / PROCEDURE REASON: Spinal stenosis of cervical region * * * * Physician Interpretation * * * * EXAMINATION: MRI CERVICAL SPINE WO IVCON CLINICAL HISTORY: Spinal stenosis of cervical region TECHNIQUE: Routine cervical spine MR protocol without gadolinium. MQ: MRCSPWO_3 COMPARISON: CT cervical spine dated 01/08/2018. RESULT: Evaluation limited by motion within the limitation, following observations are made. Counting reference: Craniocervical junction. Anatomic Variants: None. Localizer images: Non-diagnostic. Alignment: Alignment is anatomic. Craniocervical junction: Craniocervical junction is normal. Cord: The visualized cord is within normal limits of signal intensity and morphology. Bone marrow signal/fracture: No evidence of pathologic marrow infiltration. No evidence of prior fracture. Mild multilevel disc height loss. Cervical soft tissues: The paraspinal soft tissues are within normal limits. C2-C3: Canal and foramina are patent. Small disc osteophyte complex. Mild facet arthropathy. C3-C4: Small disc osteophyte complex, no canal stenosis. Mild RIGHT neural foraminal stenosis. C4-C5: Small disc osteophyte complex. No canal or neural foraminal stenosis stenosis. C5-C6: Canal and foramina are patent. Small disc osteophyte complex. C6-C7: Small disc osteophyte complex, superimposed central disc protrusion, abutment of ventral cord with mild deformation of ventral cord. No neural foraminal stenosis. Mild facet arthropathy. C7-T1: Small disc osteophyte complex superimposed central annular fissure. No canal stenosis or neural foraminal stenosis. IMPRESSION: 1. Evaluation limited by motion within the limitation, following observations are made. 2. Multilevel cervical spondylosis, most pronounced at C6-C7 with a small disc osteophyte complex and superimposed central disc protrusion, abutment of ventral cord with mild deformation of ventral cord. 3. Mild degenerative changes at other levels. No high-grade canal or neural foraminal stenosis. Anatomic Variant: None. Assume 7 cervical vertebrae with counting from the craniocervical junction. Communications Operator: [employer] Transcribe Date/Time: Aug 04 2024 4:34P Dictated by : JUSTIN MOSHER MD This examination was interpreted and the report reviewed and electronically signed by: JUSTIN MOSHER MD on Aug 04 2024 4:39PM EST [id number] Normal [facility] MRI THORACIC SPINE WO IVCONo n 08-04-2024 MRI THORACIC SPINE WO IVCON * * *Final Report* * * DATE OF EXAM: Aug 04 2024 4:14PM [facility] 0325 - MRI THORACIC SPINE WO IVCON / PROCEDURE REASON: Thoracic myelopathy * * * * Physician Interpretation * * * * EXAMINATION: MRI THORACIC SPINE WO IVCON CLINICAL HISTORY: Thoracic myelopathy TECHNIQUE: Routine thoracic spine MR protocol. MQ: MTSWO_3 COMPARISON: CT thoracic spine dated 07/03/2024. RESULT: Artifact from the spinal cord stimulator lead limits evaluation of the dorsal canal and cord from T8 to T12. Counting reference: Craniocervical and lumbosacral junctions. For the purposes of this report, L4-5 is considered the level of the iliac crest and assume there are 5 lumbar-type vertebrae. Anatomic variant: None. Localizer images: Postsurgical changes in the lumbar spine at L4-L5. Alignment: Alignment is anatomic. Cord: The visualized cord is within normal limits of signal intensity and morphology. Bone marrow signal/fracture: No evidence of pathologic marrow infiltration. Mild superior endplate chronic compression fracture of T8, T7. Mild multilevel disc height loss. Thoracic paraspinal soft tissues: The paraspinal soft tissues are within normal limits. Canal and foramina: Small disc bulge at T7-T8. The thoracic canal and foramina are patent. IMPRESSION: 1. Artifact from the spinal cord stimulator lead limits evaluation of the dorsal canal and cord from T8 to T12. Within the limitation, no acute abnormality in the thoracic spine. 2. Small disc bulge at T7-T8. No significant canal or foraminal stenosis. Anatomic Thoracic/Lumbar Variant: None. L4-5 is considered the level of the iliac crest and assume there are 5 lumbar-type vertebrae. Communications Operator: [employer] Transcribe Date/Time: Aug 04 2024 4:51P Dictated by : JUSTIN MOSHER MD This examination was interpreted and the report reviewed and electronically signed by: JUSTIN MOSHER MD on Aug 04 2024 4:56PM EST [id number] Normal [facility] No Panel Informationon 08-04 Radiology Study observation (narrative) [facility] Abdomen/Pelvis W IV Cont ONL Yon 07-22-2024 Abdomen/Pelvis W IV Cont ONLY Normal [facility] Absolute lymphocyte countOrd ered By: Chaim Maurer on 07-22-2024 Lymphocytes Auto (Unsp spec) [#/Vol] 4.02 10*3/uL 0.83-4.[address] [facility] Anion gap in Serum or Plasma Ordered By: Chaim Maurer on 07-22-2024 Anion gap [Moles/Vol] 13 mmol/L 5-15 [facility] Automated lymphocyte count a s percentage of total leukocytesOrdered By: Chaim Maurer on 07-22-2024 Lymphocytes/100 WBC Auto (Unsp spec) 37.0 % 19-[address] [facility] BUN/creatinine ratioOrdered By: Chaim Maurer on 07-22-2024 Urea nitrogen/Creatinine [Mass ratio] 18.0 mg/mg 10-[address] [facility] Basophil percentageOrdered B y: Chaim Maurer on 07-22-2024 Basophils/100 WBC (Bld) 0.4 % 0-1 [facility] Bilirubin, totalOrdered By: Chaim Maurer on 07-22-2024 Bilirubin [Mass/Vol] 0.17 mg/dL 0.00-1.30 [facility] CBC W/Diff, Automatedon 05- Absolute Lymph 4.02 X10 3/uL Normal 0.83-4.[address] [facility] Comment on above: Performed By: #### L 500.4050, L100.0100 ####[facility] [address] [place], [address] Absolute Neut 5.7 X10 3/uL Normal 2.0-7.[address] [facility] Comment on above: Performed By: #### L 500.4050, L100.0100 ####[facility] [address] [place], [address] Basophils/100 WBC (Bld) 0.4 % Normal 0-1 [facility] Comment on above: Performed By: #### L 500.4050, L100.0100 ####[facility] [address] [place], [address] Eosinophils/100 WBC (Bld) 1.9 % Normal 0-[address] [facility] Comment on above: Performed By: #### L 500.4050, L100.0100 ####[facility] [address] [place], [address] Erythrocyte distribution width (RBC) [Ratio] 13.9 % Normal 11.6-14.[address] [facility] Comment on above: Performed By: #### L 500.4050, L100.0100 ####[facility] [address] [place], [address] Hematocrit (Bld) [Volume fraction] 40.8 % Normal 37-[address] [facility] Comment on above: Performed By: #### L 500.4050, L100.0100 ####[facility] [address] [place], [address] Hemoglobin (Bld) [Mass/Vol] 13.0 g/dL Normal 12.0-15.[address] [facility] Comment on above: Performed By: #### L 500.4050, L100.0100 ####[facility] [address] [place], [address] IG% 0.600 Normal 0.0-0.[address] [facility] Comment on above: Result Comment: IG% - Immature Granulocytes (promyelocytes, myelocytes andmetamyelocytes) > 1% indicates that a LEFT SHIFT is Present. Performed By: #### L 500.4050, L100.0100 ####[facility] [address] [place], [address] Lymphocytes/100 WBC (Bld) 37.0 % Normal 19-[address] [facility] Comment on above: Performed By: #### L 500.4050, L100.0100 ####[facility] [address] [place], [address] MCH (RBC) [Entitic mass] 28.4 pg Normal 27.0-32.[address] [facility] Comment on above: Performed By: #### L 500.4050, L100.0100 ####[facility] [address] [place], [address] MCHC (RBC) [Mass/Vol] 31.9 g/dL Low 32-36 [facility] Comment on above: Performed By: #### L 500.4050, L100.0100 ####[facility] [address] [place], [address] MCV (RBC) [Entitic vol] 89.1 fL Normal 81-99 [facility] Comment on above: Performed By: #### L 500.4050, L100.0100 ####[facility] [address] [place], [address] Monocytes/100 WBC (Bld) 7.3 % Normal 0-10 [facility] Comment on above: Performed By: #### L 500.4050, L100.0100 ####[facility] [address] [place], [address] Neutrophils/100 WBC (Bld) 52.8 % Normal 47-[address] [facility] Comment on above: Performed By: #### L 500.4050, L100.0100 ####[facility] [address] [place], [address] Nucleated RBC (Bld) [#/Vol] 0 10*3/uL Normal 0-[address] [facility] Comment on above: Performed By: #### L 500.4050, L100.0100 ####[facility] [address] [place], [address] Platelet mean volume (Bld) [Entitic vol] 10.1 fL Normal 6.2-12.[address] [facility] Comment on above: Performed By: #### L 500.4050, L100.0100 ####[facility] [address] [place], [address] Platelets (Bld) [#/Vol] 269 10*3/uL Normal 150-[address] [facility] Comment on above: Performed By: #### L 500.4050, L100.0100 ####[facility] [address] [place], [address] RBC (Bld) [#/Vol] 4.58 10*6/uL Normal 4.2-5.4 [facility] Comment on above: Performed By: #### L 500.4050, L100.0100 ####[facility] [address] [place], [address] RDW SD 44.9 fl High 35.1-43.[address] [facility] Comment on above: Performed By: #### L 500.4050, L100.0100 ####[facility] [address] [place], [address] WBC (Bld) [#/Vol] 10.9 10*3/uL Normal 4.4-11.0 [facility] Comment on above: Performed By: #### L 500.4050, L100.0100 ####[facility] [address] [place], [address] Carbon dioxide, total [Moles /volume] in Central venous bloodOrdered By: Chaim Maurer on 07-22-2024 CO2 [Moles/Vol] 21.6 mmol/L 21.0-32.[address] [facility] Chloride assayOrdered By: jann Maurer on 07-22-2024 Chloride [Moles/Vol] 107 mmol/L 98-108 [facility] Comprehensive Metabolic Prof ilon 07-22-2024 Albumin [Mass/Vol] 4.2 g/dL Normal 3.5-5.0 [facility] Comment on above: Performed By: #### L 500.4050, L100.0100 ####[facility] [address] [place], [address] Albumin/Globulin [Mass ratio] 1.3 {ratio} Normal 0.9-2.[address] [facility] Comment on above: Performed By: #### L 500.4050, L100.0100 ####[facility] [address] [place], [address] ALK PHOS 76 U/L Normal 35-[address] [facility] Comment on above: Performed By: #### L 500.4050, L100.0100 ####[facility] [address] [place], [address] ALT [Catalytic activity/Vol] 18 U/L Normal <=[address] [facility] Comment on above: Performed By: #### L 500.4050, L100.0100 ####[facility] [address] [place], [address] AST [Catalytic activity/Vol] 20 U/L Normal <=[address] [facility] Comment on above: Performed By: #### L 500.4050, L100.0100 ####[facility] [address] [place], [address] Bilirubin [Mass/Vol] 0.17 mg/dL Normal 0.00-1.30 [facility] Comment on above: Performed By: #### L 500.4050, L100.0100 ####[facility] [address] [place], [address] BUN/CRE 18.0 RATIO Normal 10-[address] [facility] Comment on above: Performed By: #### L 500.4050, L100.0100 ####[facility] [address] [place], [address] Calcium [Mass/Vol] 9.5 mg/dL Normal 7.6-11.0 [facility] Comment on above: Performed By: #### L 500.4050, L100.0100 ####[facility] [address] [place], [address] Chloride [Moles/Vol] 107 mmol/L Normal 98-108 [facility] Comment on above: Performed By: #### L 500.4050, L100.0100 ####[facility] [address] [place], [address] CO2 [Moles/Vol] 21.6 mmol/L Normal 21.0-32.[address] [facility] Comment on above: Performed By: #### L 500.4050, L100.0100 ####[facility] [address] [place], [address] Creatinine [Mass/Vol] 1.42 mg/dL High 0.70-1.20 [facility] Comment on above: Performed By: #### L 500.4050, L100.0100 ####[facility] [address] [place], [address] ECRCL 33.40 ml/min Low 50-[address] [facility] Comment on above: Performed By: #### L 500.4050, L100.0100 ####[facility] [address] [place], [address] GAP 13 Normal 5-[address] [facility] Comment on above: Performed By: #### L 500.4050, L100.0100 ####[facility] [address] [place], [address] GFR/1.73 sq M.predicted among non-blacks MDRD (S/P/Bld) [Vol rate/Area] 43 mL/min/{1.73_m2} Low >[address] [facility] Comment on above: Result Comment: mL/m in/1.73m2 CKD-EPI Creatinine Equation (2020) Performed By: #### L 500.4050, L100.0100 ####[facility] [address] [place], [address] Globulin (S) [Mass/Vol] 3.3 g/dL Normal 2.2-4.2 [facility] Comment on above: Performed By: #### L 500.4050, L100.0100 ####[facility] [address] [place], [address] Glucose [Mass/Vol] 178 mg/dL High 70-99 [facility] Comment on above: Performed By: #### L 500.4050, L100.0100 ####[facility] [address] [place], [address] Potassium [Moles/Vol] 4.0 mmol/L Normal 3.3-5.1 [facility] Comment on above: Performed By: #### L 500.4050, L100.0100 ####[facility] [address] [place], [address] Sodium [Moles/Vol] 141 mmol/L Normal 133-145 [facility] Comment on above: Performed By: #### L 500.4050, L100.0100 ####[facility] [address] [place], [address] T PROT 7.4 g/dL Normal 5.9-8.[address] [facility] Comment on above: Performed By: #### L 500.4050, L100.0100 ####[facility] [address] [place], [address] Urea nitrogen [Mass/Vol] 26 mg/dL High 4-[address] [facility] Comment on above: Performed By: #### L 500.4050, L100.0100 ####[facility] [address] [place], [address] Emergency Department Summary on 07-22-2024 Emergency Department Summary Normal [facility] Eosinophil percentageOrdered By: Chaim Maurer on 07-22-2024 Eosinophils/100 WBC (Bld) 1.9 % 0-[address] [facility] Erythrocyte distribution wid th ratioOrdered By: Chaim Maurer on 07-22-2024 Erythrocyte distribution width (RBC) [Ratio] 13.9 % 11.6-14.[address] [facility] Erythrocyte distribution wid th standard deviationOrdered By: Chaim Maurer on 07-22-2024 Erythrocyte distribution width (RBC) [Ratio] 44.9 fl High 35.1-43.[address] [facility] Glomerular filtration rate ( GFR) estimation/1.73 sq m using serum, plasma, or whole bOrdered By: Chaim Maurer on 07-22-2024 GFR/1.73 sq M.predicted among non-blacks MDRD (S/P/Bld) [Vol rate/Area] 43 mL/min/{1.73_m2} Low >[address] [facility] Hematocrit Auto (Bld) [Volum e fraction]Ordered By: Chaim Maurer on 07-22-2024 Hematocrit (Bld) [Volume fraction] 40.8 % 37-[address] [facility] Hemoglobin measurementOrdere d By: Chaim Maurer on 07-22-2024 Hemoglobin (Bld) [Mass/Vol] 13.0 g/dL 12.0-15.[address] [facility] Immature granulocytes/100 WB C Auto (Bld)Ordered By: Chaim Maurer on 07-22-2024 Immature granulocytes/100 WBC (Bld) 0.600 % 0.0-0.[address] [facility] Internal Medicine Office Vis iton 07-22-2024 Internal Medicine Office Visit Normal [facility] MCV (mean corpuscular volume ) determinationOrdered By: Chaim Maurer on 07-22-2024 MCV (RBC) [Entitic vol] 89.1 fL 81-99 [facility] Mean corpuscular hemoglobin (MCH) determinationOrdered By: Chaim Maurer on 07-22-2024 MCH (RBC) [Entitic mass] 28.4 pg 27.0-32.[address] [facility] Monocyte percentageOrdered B y: Chaim Maurer on 07-22-2024 Monocytes/100 WBC (Bld) 7.3 % 0-10 [facility] Neutrophil percentageOrdered By: Chaim Maurer on 07-22-2024 Neutrophils/100 WBC (Bld) 52.8 % 47-[address] [facility] No Panel InformationOrdered By: Chaim Maurer on 07-22-2024 20 U/L <[address] [facility] No Panel InformationOrdered By: Charla Wadsworth on 07-22-2024 6.9 % High 4.2-6.[address] [facility] Platelet countOrdered By: Kaity Maurer on 07-22-2024 Platelets (Bld) [#/Vol] 269 10*3/uL 150-[address] [facility] Potassium measurement (mass/ volume)Ordered By: Chaim Maurer on 07-22-2024 Potassium (Unsp spec) [Mass/Vol] 4.0 mmol/L 3.3-5.[address] [facility] RBC Auto (Bld) [#/Vol]Ordere d By: Chaim Maurer on 07-22-2024 RBC (Bld) [#/Vol] 4.58 10*6/uL 4.2-5.4 [facility] Serum creatinine measurement (mass/volume)Ordered By: Chaim Maurer on 07-22-2024 Creatinine [Mass/Vol] 1.42 mg/dL High 0.70-1.20 [facility] Serum globulin measurementOr dered By: Chaim Maurer on 07-22-2024 Globulin (S) [Mass/Vol] 3.3 g/dL 2.2-4.2 [facility] Serum glucose measurement (m ass/volume)Ordered By: Chaim Maurer on 07-22-2024 Glucose [Mass/Vol] 178 mg/dL High 70-99 [facility] Serum or plasma alanine cortes otransferase (ALT) measurementOrdered By: Chaim Maurer on 07-22-2024 ALT [Catalytic activity/Vol] 18 U/L <[address] [facility] Serum or plasma albumin heather urement (mass/volume)Ordered By: Chaim Maurer on 07-22-2024 Albumin [Mass/Vol] 4.2 g/dL 3.5-5.0 [facility] Serum or plasma albumin/glob ulin mass ratioOrdered By: Chaim Maurer on 07-22-2024 Albumin/Globulin [Mass ratio] 1.3 {ratio} 0.9-2.[address] [facility] Serum or plasma alkaline osorio sphatase measurementOrdered By: Chaim Maurer on 07-22-2024 ALP [Catalytic activity/Vol] 76 U/L 35-[address] [facility] Serum or plasma calcium heather urement (mass/volume)Ordered By: Chaim Maurer on 07-22-2024 Calcium [Mass/Vol] 9.5 mg/dL 7.6-11.0 [facility] Serum or plasma urea nitroge n measurement (mass/volume)Ordered By: Chaim Maurer on 07-22-2024 Urea nitrogen [Mass/Vol] 26 mg/dL High 4-[address] [facility] Sodium levelOrdered By: Raeann Maurer on 07-22-2024 Sodium [Moles/Vol] 141 mmol/L 133-145 [facility] Total proteinOrdered By: Latrice Maurer on 07-22-2024 Protein [Mass/Vol] 7.4 g/dL 5.9-8.4 [facility] Urinalysis, Completeon 07-22 BACTERIA Normal None Seen [facility] Comment on above: Order Comment: COLLE CTOR TO SPECIFY Result Comment: Canc elled via OM: MD Ordered Performed By: #### L 400.0001 ####[facility] [address] [place], [address] BILIRUBIN URINE Normal Negative [facility] Comment on above: Order Comment: COLLE CTOR TO SPECIFY Result Comment: Canc elled via OM: MD Ordered Performed By: #### L 400.0001 ####[facility] [address] [place], [address] Clarity (U) Normal Clear [facility] Comment on above: Order Comment: ADOLPH CTOR TO SPECIFY Result Comment: Canc elled via OM: MD Ordered Performed By: #### L 400.0001 ####[facility] [address] [place], [address] Color (U) Normal Yellow [facility] Comment on above: Order Comment: COLLE CTOR TO SPECIFY Result Comment: Canc elled via OM: MD Ordered Performed By: #### L 400.0001 ####[facility] [address] [place], [address] EPI,SQUAMOUS Normal 5-[address] [facility] Comment on above: Order Comment: ADOLPH CTOR TO SPECIFY Result Comment: Canc elled via OM: MD Ordered Performed By: #### L 400.0001 ####[facility] [address] [place], [address] GLUCOSE, UR Normal Normal [facility] Comment on above: Order Comment: ADOLPH CTOR TO SPECIFY Result Comment: Canc elled via OM: MD Ordered Performed By: #### L 400.0001 ####[facility] [address] [place], [address] KETONE UR Normal Negative [facility] Comment on above: Order Comment: ADOLPH CTOR TO SPECIFY Result Comment: Canc elled via OM: MD Ordered Performed By: #### L 400.0001 ####[facility] [address] [place], [address] LEUK ESTERASE Normal Negative [facility] Comment on above: Order Comment: COLLE CTOR TO SPECIFY Result Comment: Canc elled via OM: MD Ordered Performed By: #### L 400.0001 ####[facility] [address] [place], [address] Mucus Ql (Urine sed) Normal [facility] Comment on above: Order Comment: COLLE CTOR TO SPECIFY Result Comment: Canc elled via OM: MD Ordered Performed By: #### L 400.0001 ####[facility] [address] [place], [address] Nitrite Ql (U) Normal Negative [facility] Comment on above: Order Comment: COLLE CTOR TO SPECIFY Result Comment: Canc elled via OM: MD Ordered Performed By: #### L 400.0001 ####[facility] [address] [place], [address] OCCULT BLOOD-UR Normal Negative [facility] Comment on above: Order Comment: ADOLPH CTOR TO SPECIFY Result Comment: Canc elled via OM: MD Ordered Performed By: #### L 400.0001 ####[facility] [address] [place], [address] pH UR Normal 5.0 - 8.[address] [facility] Comment on above: Order Comment: ADOLPH CTOR TO SPECIFY Result Comment: Canc elled via OM: MD Ordered Performed By: #### L 400.0001 ####[facility] [address] [place], [address] PROT DIPSTX Normal Negative [facility] Comment on above: Order Comment: ADOLPH CTOR TO SPECIFY Result Comment: Canc elled via OM: MD Ordered Performed By: #### L 400.0001 ####[facility] [address] [place], [address] RBC Normal 0-[address] [facility] Comment on above: Order Comment: COLLE CTOR TO SPECIFY Result Comment: Canc elled via OM: MD Ordered Performed By: #### L 400.0001 ####[facility] [address] [place], [address] SP.GR. DIPSTX Normal 1.002-1.[address] [facility] Comment on above: Order Comment: COLLE CTOR TO SPECIFY Result Comment: Canc elled via OM: MD Ordered Performed By: #### L 400.0001 ####[facility] [address] [place], [address] UR Preservative Normal [facility] Comment on above: Order Comment: ADOLPH CTOR TO SPECIFY Result Comment: Canc elled via OM: MD Ordered Performed By: #### L 400.0001 ####[facility] [address] [place], [address] UROBILI Normal Normal [facility] Comment on above: Order Comment: COLLE CTOR TO SPECIFY Result Comment: Canc elled via OM: MD Ordered Performed By: #### L 400.0001 ####[facility] [address] [place], [address] WBC Normal 0-[address] [facility] Comment on above: Order Comment: ADOLPH CTOR TO SPECIFY Result Comment: Canc elled via OM: MD Ordered Performed By: #### L 400.0001 ####[facility] [address] [place], [address] White blood cell (WBC) count Ordered By: Chaim Maurer on 07-22-2024 WBC (Bld) [#/Vol] 10.9 10*3/uL 4.4-11.0 [facility] Kevyn 07-13-2024 CNPN Telephone (AGPOB1) BRADSHAWRAMSES Anne ([id number]) 1965 F Date Time Provider Department 07/13/24 BUTCH MAYSB1 During your visit today, we recorded the following information about you: Dari Trujillo 07/13/2024 9:50 AM Signed I will rout to Dr. Mays for signature. Dari Sheth July 13, 2024 9:50 AM Dari Trujillo 07/15/2024 8:11 AM Signed Called centralized scheduling at [facility] on 07/14/24 to set up STAT MRI's for this patient but was told due to Implant the MRI department will have to call me to schedule. Patient is in a facility in [place] and they will need at least a 48 hour notice for transportation. I spoke to nurse at [facility] in [place] [phone]. Dari [place] Dari Sheth 07/17/2024 8:30 AM Signed Received call from [facility] and MRI 's have been moved up to Saturday08/04/24 at [facility] and follow up with Dr. Mays is on 08/06/24 in [facility]. Gave all appointment information to Juana at [facility] in [place]. Told Juana that patient need to bring remote and make sure her device is fully charged. Dari Gil [facility] July 17, 2024 8:30 AM Allergies As of Date: 07/13/2024 Noted Allergy Reaction ASA (SALICYLATES) 11/14/2004 8 - GI Upset ERYTHROMYCIN 11/14/2004 11 - Vomiting Comments: Vomiting AND diarrhea IBUPROFEN 11/14/2004 8 - GI Upset LATEX 06/30/2010 14 - Other: See Comments Comments: Pt reports reaction to Latex, adhesives, EKG stickers w/ skin irritation at times...causes redness AND blisters NSAIDS (NON-STEROIDAL ANTI-INFLAM*02/23/2014 6 - Diarrhea 11 - Vomiting Date Reviewed: 07/03/2024 Reviewed by: Christina Gayle, RN - Fully Assessed Reason for Visit: Orders [681] Cmt: Received message form Dr. Mays that he would like MRI's ordered as STAT Primary Visit Diagnosis:Thoracic myelopathy [M47.14] Other Visit Diagnosis:Spinal stenosis of cervical region [M48.02] Order(s):MRI CERVICAL SPINE WO IVCON [[id number]] Order #: [id number] FUTURE MRI THORACIC SPINE WO IVCON [[id number]] Order #: [id number] FUTURE Prescriptions as of 07/17/2024 - isosorbide mononitrate ER (IMDUR) 60 mg 24 hr tablet Take 60 mg by mouth once daily. - denosumab (PROLIA) 60 mg/mL Inject 60 mg subcutaneously once every 6 months. - omeprazole (PRILOSEC) 40 mg capsule Take 40 mg by mouth once daily. - Fenofibrate (LOFIBRA) 54 mg tablet Take 54 mg by mouth once daily. - SUMAtriptan (IMITREX) 50 mg tablet Take 50 mg by mouth as needed for migraine headache (see administration instructions). May repeat dose after 2 hours if needed. Maximum daily dose is 200 mg per day. - rosuvastatin (CRESTOR) 20 mg tablet Take 20 mg by mouth daily at bedtime. - traZODone (DESYREL) 150 mg tablet Take 150 mg by mouth daily at bedtime. - traZODone (DESYREL) 50 mg tablet Take 50 mg by mouth daily at bedtime. - cyclobenzaprine (FLEXERIL) 10 mg tablet Take 10 mg by mouth two times a day as needed for muscle spasm. - busPIRone (BUSPAR) 5 mg tablet Take 5 mg by mouth two times a day. - busPIRone (BUSPAR) 15 mg tablet Take 15 mg by mouth two times a day. - glimepiride (AMARYL) 2 mg tablet Take 2 mg by mouth two times a day with meals. - apixaban (ELIQUIS) 5 mg tab(s) Take 5 mg by mouth two times a day. - clonazePAM (KLONOPIN) 0.5 mg tablet Take 0.5 mg by mouth four times daily. - lisinopril (ZESTRIL, PRINIVIL) 20 mg tablet TAKE 1 TABLET BY MOUTH TWICE A DAY - gabapentin (NEURONTIN) 300 mg capsule Take 300 mg by mouth four times daily. - amLODIPine (NORVASC) 5 mg tablet Take 5 mg by mouth two times a day. - metoprolol tartrate, short acting, (LOPRESSOR) 25 mg tablet Take 100 mg by mouth two times a day. - pantoprazole DR (PROTONIX) 40 mg tablet Take 40 mg by mouth twice daily. - nitroglycerin sublingual (NITROQUICK) 0.4 mg SL tablet Dissolve 1 tablet under the tongue as needed. FOR CHEST PAIN. IF NO RELIEF CALL 911 - DULoxetine (CYMBALTA) 60 mg capsule Take 60 mg by mouth once daily. - Ferrous Fumarate 325 mg (106 mg iron) tab Take 325 mg by mouth twice daily. - levothyroxine (LEVOTHROID) 25 mcg tablet Take 25 mcg by mouth once daily. - oxyCODONE-acetaminophen (PERCOCET) 10-325 mg tablet Take 1 tablet by mouth every 6 hours as needed. 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 Normal [facility] CNDSon 07-04-2024 CN HNO ID: [id number] Author: DILMA GARAY MD Service: Hospital Medicine Author Type: Physician Type: Discharge Summary Filed: 07/04/2024 13:20 Note Text: DISCHARGE SUMMARY PATIENT NAME: Ramses Bradshaw Code Status: Full Code Highest Readmission Risk Score: 11 The 30 day readmissions risk score is derived from an internally validated risk model which evaluates patient level characteristics, utilization history, medication orders and lab results up until the day of discharge. Patients with a score of 39 or above are considered highest risk for readmission. Specific patient level drivers will be listed at the bottom of the summary. Admission Information Admission Information ADMIT DATE: 07/03/2024 DISCHARGE DATE: 07/04/2024 MY DOCTORS AND MEDICAL TEAM: My Main [facility] Doctor: Dilma Garay MD Primary Care Provider: Charla Wadsworth MD My Medical Team Members: Treatment Team: Attending Provider: Dilma Garay MD Primary Service: BELEN FATIMA Consulting: Butch Mays MD MY CONDITION AT DISCHARGE: Stable REASON I WAS IN THE HOSPITAL: Acute on chronic back pain SUMMARY OF WHAT HAPPENED WHILE I WAS IN THE HOSPITAL: 58 year old female with a PMHx of CAD, COPD, A. Fib., CHF, Cardiac Pacemaker in Situ, DM Type 2, HTN, and Hypothyroidism presents with sharp/stabbing, constant back pain that has been present for the last 3-4 weeks. Patient presents from an assisted living facility. She was evaluated by spine surgery, CT scans and MRIs of the spine recommended. However patient unable to get MRI done at this time due to not having the remote for her oral stimulator working at this time. Patient does not have any family that can bring in the field court researcher for the remote. Due to this MRI cannot be done inpatient. Spine surgery evaluated the patient, recommending outpatient follow-up with cervical and thoracic MRIs. PT OT evaluated the patient and recommending SNF, however patient is refusing and would like to be discharged back to her AL with outpatient PT OT referrals. Ensure adequate pain control with Percocet and lidocaine patch. Patient is being discharged back to AL in a stable condition. OT PT referrals given for outpatient. Follow-up outpatient with PCP and spine surgery. Will give prescription for lidocaine. OTHER PROBLEMS/DIAGNOSIS: Principal Problem: Back pain due to injury Active Problems: Cardiac pacemaker in situ Leg weakness, bilateral Hypothyroidism Class 3 severe obesity in adult Essential hypertension Controlled type 2 diabetes mellitus without complication, without long-term current use of insulin (HCC) History of pulmonary embolus (PE) Atrial fibrillation (HCC) Hyperlipidemia Tobacco use disorder ELOY (obstructive sleep apnea) Heart failure with preserved ejection fraction (HCC) ARMANI (acute kidney injury) Obesity, Class III, BMI >= 40 Resolved Problems: * No resolved hospital problems. * OPERATIONS PERFORMED WHILE IN THE HOSPITAL: None IMPORTANT TEST/PROCEDURES: No procedures performed TEST RESULTS NOT AVAILABLE AT THIS TIME: No pending results Discharge Disposition Discharge Disposition: Home With Self Care Activity When You Leave the Hospital Resume pre-hospital activity Diet Instructions Resume your pre-hospital diet Follow Up Appointments Follow-up Appointment When: In 1 week Patient/Parents to call for appointment?: Yes Charla Wadsworth MD [phone] [address] [facility] [facility] [address] PCP Requested Referral Follow-up Appointment When: In 1 week Patient/Parents to call for appointment?: Yes Butch Mays MD [phone] [address] [facility] [address] [facility] [address] PCP Requested Referral Additional Provider to Provider Information: Morbid Obesity Class 3 Treatment Team: Attending Provider: Dilma Garay MD Primary Service: BELEN FATIMA Consulting: Butch Mays MD Transitions of Care Critical Issues: SPECIALIST FOLLOW-UP: Ortho spine LYLES MEDICATION CHANGES: Lidocaine patch, Continue percocet PRN LABS AND PROCEDURES PENDING AT DISCHARGE: No pending results. FOLLOW-UP APPOINTMENTS ALREADY SCHEDULED WITH A [facility] PROVIDER: No future appointments. ALLERGIES Allergen Reactions Asa [Salicylates] GI Upset Erythromycin Vomiting Vomiting AND diarrhea Ibuprofen GI Upset Latex Other: See Comments Pt reports reaction to Latex, adhesives, EKG stickers w/ skin irritation at times...causes redness AND blisters Nsaids (Non-Steroid* Diarrhea, Vomiting DISCHARGE MEDICATION: Medication List START taking these medications lidocaine 4 % patch Commonly known as: SALONPAS Apply 1 patch as directed once daily for 5 days. Start taking on: July 05, 2024 CHANGE how you take these medications lisinopril 20 mg tablet Commonly known as: ZESTRIL TAKE 1 TABLET BY MOUTH TWICE A DAY What changed: when to take this metoprolol tartrat (more content not included)... Normal [facility] THERAPY NTon 07-04-2024 THERAPY NT HNO ID: [id number] Author: JANETH ALLISON OTR/Anne Service: Occupational Therapy Author Type: Occupational Therapist Type: Therapy (PT/OT/Speech/Resp) Filed: 07/04/2024 13:05 Note Text: Occupational Therapy Evaluation Summary SERVICE DATE: 07/04/2024 SERVICE TIME: 1059 to 1122 ROOM: [place] [address] OT 6 Clicks Score: 15 DISCHARGE RECOMMENDATIONS Subacute/SNF Recommended Discharge Disposition Due to: Functional deficits requiring ongoing therapy service prior to discharge home., ADL impairment, Functional status decline, Requires multiple therapy disciplines ASSESSMENT Response to Therapy Interventions: Good Participation in Activities, Low Activity Tolerance, Pain PRECAUTIONS Fall Risk CURRENT HOSPITAL COURSE 58 year old female presents with sharp/stabbing back pain with LE weakness, paresthesias and urinary incontinence. MRI L spine (-); unable to complete thoracic or cervical MRI due to spinal stimulator. Ortho surgery recommending outpatient imaging and follow up. Relevant Past Medical History: spinal stimulator, CAD, COPD, Afib, CHF, cardiac pacemaker in situ, DM2, HTN, hypothyroidism HOME LIVING Patient Lives With: Facility Care Assistance Available: 24-Hour Entry To Home: No Stairs Tub/Shower Type: tub shower combo Laundry: facility completes Equipment Owned: Rollator PRIOR FUNCTIONAL LEVEL Required Assistance, History of Falls Assistance Required With: Cleaning, Laundry, Meals, Medication Management, Finances, Transportation, Shopping, Safety Patient reports she completes ADLs without assist at AL. Uses rollator in her apartment, takes power wheelchair down to dining room or for any out of room or community activities. Facility assists with all IADLs. + Falls. Baseline Cognition: Oriented to self, Oriented to place, Oriented to time, Oriented to situation SUBJECTIVE Patient agreeable, reporting 7/10 back pain. COGNITION Responsiveness: Awake, Alert Follows Commands: 2-step Commands, Cueing Needed Cueing to Follow Commands: Minimum Attention Deficits: Distractible Memory Deficits: Recall of Medical/Personal History Executive Function Deficits: Safety Awareness, Problem Solving, Judgement, Insight to Deficits THERAPY DIAGNOSIS Reduced mobility-other, Decreased activities of daily living (ADL), Muscle Weakness (generalized), Unsteadiness on feet, Abnormalities of gait and mobility-other, General symptoms and signs-other TREATMENT INTERVENTIONS Evaluation, Self Correction Management (42385) Timed Code Treatment (minutes): 8 Skilled Treatment Time (minutes): 23 $ Evaluation - Moderate (32604) Billed Units: 1 unit Self Correction Management (40865) Treatment Minutes: 8 $ Self Correction Management (70217) Billed Units: 1 unit TRAINING AND EDUCATION PROVIDED Activity Adaptation/Compensatory Strategies, Assistive Device Use, Bed Mobility, Benefits of In-Hospital Mobility, Coping Skills/Resiliency, Disease Specific Education, Discharge Planning, Expected Functional Level, Functional Mobility Involving ADLs, Identification of Systems of Support, Health Management of Chronic Conditions, Insight into Deficits, Life Roles/Routines/Habits, Lower Extremity Dressing, Pain Management, Positioning, Precautions/Restriction s, Role of Occupational Therapy, Safety/Judgment, Sitting Balance to Improve [place] with ADLs/Self-Care, Standing Balance to Improve [place] with ADLs/Self-Care, Transfer - Sit to Stand, Treatment Protocol, Upper Extremity Dressing THERAPEUTIC SKILLS USED Activity Dosing, Assessment of Tolerance Including Vitals Response to Activity, Cues for Sequencing/Proper Technique for Activity, Cuing Verbal, Cuing Tactile, Movement Facilitation, Physical Assist, Therapeutic Use of Self, Teach-Back for Education FUNCTIONAL STATUS Activities of Daily Living Assist Level Additional Information Feeding Set Up Grooming Minimal Assistance Bathing Upper Body Minimal Assistance Bathing Lower Body Moderate Assistance Dressing Upper Body Minimal Assistance, Additional Information assist managing clothing Dressing Lower Body Maximal Assistance, Additional Information assist donning bilat socks Toileting Moderate Assistance Mobility Assist Level Additional Information Bed Mobility Supine To Sit: Minimal Assistance Sit To Supine: Minimal Assistance Sit to Stand Minimal Assistance Stand to Sit Minimal Assistance Bed to Chair Toilet/Commode Shower Functional Mobility Minimal Assistance, Additional Information Functional Mobility Device: Wheeled Walker few steps away from bed and back ROM WFL STRENGTH Strength Limitation Comments: strength could be maximized ACTIVITY TOLERANCE Sitting Activity: EOB sitting in prep for ADL related mobility; LB dressing Sitting Activity Tolerance (in minutes): 8 Standing Activity: static stand at bedside; side steps at bedside; functional mobility a short distance in ro (more content not included)... Normal [facility] ALLIED HEALTHon 07-03-2024 ALLIED HEALTH HNO ID: [id number] Author: EUGENIO LOUISE Tech Service: ? Author Type: Technologist Type: Allied Health Filed: 07/03/2024 17:28 Note Text: Radiology Service Progress Note PATIENT NAME: Ramses Bradshaw DATE OF SERVICE: July 03, 2024 TIME: 5:28 PM PATIENT IDENTITY VERIFICATION COMPLETED USING TWO (2) IDENTIFIERS: Name and Date of confirmed by patient verbally and Name and Date of confirmed by identification band. FALL SCREENING: Has the patient had 2 falls in the last year or 1 fall with injury or currently using an Ambulatory Assistive Device (Walker, Cane, Wheelchair, Crutches, etc.)? Inpatient: Screened on floor PATIENT GENDER DATA: Assigned female at . status: : No status: NO. PATIENT RELEVANT IMPLANT DATA REVIEWED: Yes PATIENT PRESENTS WITH AN IMPLANTABLE OR ATTACHED SMASH HAND: No RADIOLOGY DEPARTMENT: CT; Exam(s) Completed: Spine PERIPHERAL IV DATA: Inpatient: see LDA documentation SIGNED BY: Candelario Collier July 03, 2024 5:28 PM Normal [facility] CBC panel Auto (Bld)on 07-03 Erythrocyte distribution width (RBC) [Ratio] 13.9 % Normal 11.5-15.0 [facility] Comment on above: Order Comment: Speci men Type: BLOOD SPECIMEN Ordering Facility: [facility] Address: [address] [place] [address] Performed By: #### 5 8410-2 #### [facility] CLIA [id number] [address] OF [facility] Hematocrit (Bld) [Volume fraction] 41.4 % Normal 36.0-46.0 [facility] Comment on above: Order Comment: Speci men Type: BLOOD SPECIMEN Ordering Facility: [facility] Address: [address] [place] [address] Performed By: #### 5 8410-2 #### [facility] CLIA [id number] [address] STATES OF [facility] Hemoglobin (Bld) [Mass/Vol] 13.4 g/dL Normal 11.5-15.5 [facility] Comment on above: Order Comment: Speci men Type: BLOOD SPECIMEN Ordering Facility: [facility] Address: [address] [place] [address] Performed By: #### 5 8410-2 #### [facility] CLIA [id number] [address] [place] MCH (RBC) [Entitic mass] 28.8 pg Normal 26.0-34.0 [facility] Comment on above: Order Comment: Speci men Type: BLOOD SPECIMEN Ordering Facility: [facility] Address: [address] [place] [address] Performed By: #### 5 8410-2 #### [facility] CLIA [id number] [address] MCHC (RBC) [Mass/Vol] 32.4 g/dL Normal 30.5-36.0 [facility] Comment on above: Order Comment: Speci men Type: BLOOD SPECIMEN Ordering Facility: [facility] Address: [address] [place] [address] Performed By: #### 5 8410-2 #### [facility] CLIA [id number] [address] OF [place] MCV (RBC) [Entitic vol] 89.0 fL Normal 80.0-100.0 [facility] Comment on above: Order Comment: Speci men Type: BLOOD SPECIMEN Ordering Facility: [facility] Address: [address] [place] [address] Performed By: #### 5 8410-2 #### [facility] CLIA [id number] [address] OF [facility] Nucleated RBC (Bld) [#/Vol] 10*3/uL Normal <0.01 [facility] Comment on above: Order Comment: Speci men Type: BLOOD SPECIMEN Ordering Facility: [facility] Address: [address] [place] [address] Performed By: #### 5 8410-2 #### [facility] CLIA [id number] [address] Platelet mean volume (Bld) [Entitic vol] 9.4 fL Normal 9.0-12.7 [facility] Comment on above: Order Comment: Speci men Type: BLOOD SPECIMEN Ordering Facility: [facility] Address: [address] [place] [address] Performed By: #### 5 8410-2 #### [facility] CLIA [id number] [address] [place] Platelets (Bld) [#/Vol] 219 10*3/uL Normal 150-400 [facility] Comment on above: Order Comment: Speci men Type: BLOOD SPECIMEN Ordering Facility: [facility] Address: [address] [place] [address] Performed By: #### 5 8410-2 #### [facility] CLIA [id number] [address] RBC (Bld) [#/Vol] 4.65 10*6/uL Normal 3.90-5.20 [facility] Comment on above: Order Comment: Speci men Type: BLOOD SPECIMEN Ordering Facility: [facility] Address: [address] [place] [address] Performed By: #### 5 8410-2 #### [facility] CLIA [id number] [address] WBC (Bld) [#/Vol] 8.42 10*3/uL Normal 3.70-11.00 [facility] Comment on above: Order Comment: Speci men Type: BLOOD SPECIMEN Ordering Facility: [facility] Address: [address] [place] [address] Performed By: #### 5 8410-2 #### [facility] CLIA [id number] [address] Erythrocyte distribution width (RBC) [Ratio] 13.6 % Normal 11.5-15.0 [facility] Comment on above: Order Comment: Speci men Type: BLOOD SPECIMEN Ordering Facility: [facility] Address: [address] [place] [address] Performed By: #### 5 8410-2 #### [facility] CLIA [id number] [address] Hematocrit (Bld) [Volume fraction] 41.1 % Normal 36.0-46.0 [facility] Comment on above: Order Comment: Speci men Type: BLOOD SPECIMEN Ordering Facility: [facility] Address: [address] [place] [address] Performed By: #### 5 8410-2 #### [facility] CLIA [id number] [address] Hemoglobin (Bld) [Mass/Vol] 13.0 g/dL Normal 11.5-15.5 [facility] Comment on above: Order Comment: Speci men Type: BLOOD SPECIMEN Ordering Facility: [facility] Address: [address] [place] [address] Performed By: #### 5 8410-2 #### [facility] CLIA [id number] [address] MCH (RBC) [Entitic mass] 28.6 pg Normal 26.0-34.0 [facility] Comment on above: Order Comment: Speci men Type: BLOOD SPECIMEN Ordering Facility: [facility] Address: [address] [place] [address] Performed By: #### 5 8410-2 #### [facility] CLIA [id number] [address] MCHC (RBC) [Mass/Vol] 31.6 g/dL Normal 30.5-36.0 [facility] Comment on above: Order Comment: Speci men Type: BLOOD SPECIMEN Ordering Facility: [facility] Address: [address] [place] [address] Performed By: #### 5 8410-2 #### [facility] CLIA [id number] [address] MCV (RBC) [Entitic vol] 90.5 fL Normal 80.0-100.0 [facility] Comment on above: Order Comment: Speci men Type: BLOOD SPECIMEN Ordering Facility: [facility] Address: [address] [place] [address] Performed By: #### 5 8410-2 #### [facility] CLIA [id number] [address] Nucleated RBC (Bld) [#/Vol] 10*3/uL Normal <0.01 [facility] Comment on above: Order Comment: Speci men Type: BLOOD SPECIMEN Ordering Facility: [facility] Address: [address] [place] [address] Performed By: #### 5 8410-2 #### [facility] CLIA [id number] [address] Platelet mean volume (Bld) [Entitic vol] 9.2 fL Normal 9.0-12.7 [facility] Comment on above: Order Comment: Speci men Type: BLOOD SPECIMEN Ordering Facility: [facility] Address: [address] [place] [address] Performed By: #### 5 8410-2 #### [facility] CLIA [id number] [address] [place] Platelets (Bld) [#/Vol] 203 10*3/uL Normal 150-400 [facility] Comment on above: Order Comment: Speci men Type: BLOOD SPECIMEN Ordering Facility: [facility] Address: [address] [place] [address] Performed By: #### 5 8410-2 #### [facility] CLIA [id number] [address] RBC (Bld) [#/Vol] 4.54 10*6/uL Normal 3.90-5.20 [facility] Comment on above: Order Comment: Speci men Type: BLOOD SPECIMEN Ordering Facility: [facility] Address: [address] [place] [address] Performed By: #### 5 8410-2 #### [facility] CLIA [id number] [address] OF [place] WBC (Bld) [#/Vol] 7.47 10*3/uL Normal 3.70-11.00 [facility] Comment on above: Order Comment: Speci men Type: BLOOD SPECIMEN Ordering Facility: [facility] Address: [address] [place] [address] Performed By: #### 5 8410-2 #### [facility] CLIA [id number] [address] CONSULTon 07-03-2024 CONSULT HNO ID: [id number] Author: BUTCH MAYS MD Service: Orthopaedic Surgery Author Type: Physician Type: Consults Filed: 07/03/2024 17:21 Note Text: Orthopaedic Spine Surgery Attending Addendum I personally saw and evaluated the patient. I agree with the history, physical examination, assessment, and plan as documented in the resident's note with the following additions/changes: 58 year old female with history as below presenting with thoracic back pain and lower extremity weakness. Reports a fall 1 month ago. Since then has had worsening pain in the thoracic spine and weakness in the bilateral lower extremities. Using a wheelchair for ambulatory assistance. No incontinence. Had a spinal cord stimulator placed that she does not think has helped. Examination as below. Sensation intact to light touch C5-T1 and L1-S1. Motor function 5/5 in bilateral upper extremities, 4/5 in bilateral lower extremities. No clonus. Hyperreflexic left patellar reflex. CT and MRI of thoracic and lumbar spine pending. Final recommendations pending imaging. Butch Mays MD Orthopaedic Spine Surgery Consultation requested by Reilly Reyna PA-C. A summary of my findings and recommendations will be communicated back to the requesting physician via the shared electronic medical record. ORTHOPAEDIC SURGERY CONSULT Pt: RAMSES BRADSHAW Date of Consultation: 07/03/2024 Physician Consulted: Dr. Mays Reason for Consultation: Back pain w/new b/l leg weakness HPI: 58 year old female presented to [facility] with increased lower back and mid back pain with difficulty ambulating due to leg weakness. The patient stated this really started to occur after she slipped 1 month ago in the bathtub. She states that since then, her legs have felt weak and heavy. She denies bowel incontinence but mentions she has had urinary issues that have been ongoing and predate the start of her chief complaint. She does endorse subjective numbness in the right thigh. Notably, the patient had a prior L4-L5 PSIF at [facility] but is unsure of when that occurred but states it was done due to back pain. PAST MEDICAL HISTORY Diagnosis Date Anxiety Atrial fibrillation (HCC) 07/03/2024 CAD (coronary artery disease) 07/03/2024 Congestive heart failure (HCC) 07/03/2024 Controlled type 2 diabetes mellitus without complication, without long-term current use of insulin ([facility]) 07/03/2024 COPD (chronic obstructive pulmonary disease) ([facility]) 07/03/2024 Depression Gastric mass Hypertension Hypothyroid ELOY (obstructive sleep apnea) 07/03/[address] [place] . pacemaker checked at [facility] Sick sinus syndrome ([facility]) Sleep apnea uses cpap at night PAST SURGICAL HISTORY Procedure Laterality Date ANESTHESIA LUMBAR REGION NOS 02/07/2016 L4-L5 fusion; [facility] APPENDECTOMY CARPAL TUNNEL left HYSTERECTOMY HX LAPAROSCOPY DIAGNOSTIC NEUROPLASTY AND/TRANSPOSITION ULNAR NERVE ELBOW bilateral- with revisions PACEMAKER (PM) 2003 PAST SURGICAL HISTORY OF lumbar pain injections. Allergies: Asa [Salicylates], Erythromycin, Ibuprofen, Latex, and Nsaids (Non-Steroidal Anti-Inflammatory Drug) Current Facility-Administered Medications Medication Dose Route Frequency aluminum-magnesium hydroxide-simethicone 200-200-20 mg/5 mL 30 mL 30 mL ORAL q 6 H PRN prochlorperazine 5 mg injection (COMPAZINE) 5 mg INTRAVENOUS q 6 H PRN amLODIPine 5 mg tab(s) (NORVASC) 5 mg ORAL BID apixaban 5 mg tab(s) (ELIQUIS) 5 mg ORAL BID busPIRone 15 mg tab(s) (BUSPAR) 15 mg ORAL BID busPIRone 5 mg tab(s) (BUSPAR) 5 mg ORAL BID clonazePAM 0.5 mg tab(s) (KlonoPIN) 0.5 mg ORAL QID cyclobenzaprine 10 mg tab(s) (FLEXERIL) 10 mg ORAL BID PRN DULoxetine 60 mg cap(s) (CYMBALTA) 60 mg ORAL BID gabapentin 300 mg cap(s) (NEURONTIN) 300 mg ORAL TID glimepiride 2 mg tab(s) (AMARYL) 2 mg ORAL BID w MEALS isosorbide mononitrate ER 60 mg tab(s) (IMDUR) 60 mg ORAL DAILY lisinopril 20 mg tab(s) (ZESTRIL) 20 mg ORAL DAILY metoprolol tartrate (short acting) 100 mg tab(s) (LOPRESSOR) 100 mg ORAL BID rosuvastatin 20 mg tab(s) (CRESTOR) 20 mg ORAL AT BEDTIME SUMAtriptan 50 mg tab(s) (IMITREX) 50 mg ORAL PRN NaCl 0.9% iv flush bag 20 mL INTRAVENOUS PRN ondansetron 4 mg tab(s) (ZOFRAN) 4 mg ORAL q 6 H PRN Or ondansetron (PF) 4 mg injection (ZOFRAN) 4 mg INTRAVENOUS q 6 H PRN acetaminophen 650 mg tab(s) (TYLENOL) 650 mg ORAL q 6 H PRN melatonin 3 mg tab(s) 3 mg ORAL DAILY (8 PM) dextrose 15 gram/32 mL 15 g (TRUEPLUS) 15 g ORAL PRN Or glucagon 1 mg injection 1 mg INTRAMUSCULAR PRN Or dextrose 10% iv bolus 12.5 g INTRAVENOUS PRN insulin lispro injection (rapid acting) (ADMElog) SUBCUTANEOUS w MEALS nicotine 14 mg/24 hr 1 patch (NICODERM) 1 patch TRANSDERMAL DAILY And [START ON 07/04/2024] nicotine -- REMOVE patch OTHER DAILY And nicotine - verify patch OTHER q 8 H levothyr (more content not included)... Normal [facility] CT LUMBAR SPINE WO IVCONon 0 07-03-2024 CT LUMBAR SPINE WO IVCON * * *Final Report* * * DATE OF EXAM: Jul 03 2024 5:31PM [facility] 0508 - CT LUMBAR SPINE WO IVCON / PROCEDURE REASON: Low back pain, trauma * * * * Physician Interpretation * * * * EXAMINATION: CT THORACIC SPINE WO IVCON, CT LUMBAR SPINE WO IVCON CLINICAL HISTORY: Low back pain. TECHNIQUE: Spiral, high resolution axial unenhanced images were obtained from the cervicothoracic junction to the sacrum with sagittal and coronal planar reconstructions. CT Radiation dose: Integrated Dose-Length Product (DLP) for this visit = 2778 mGy*cm. CT Dose Reduction Employed: Automated exposure control(AEC) and iterative recon COMPARISON: CTs dated 10/03/2018 and 12/02/2017. FINDINGS: Postsurgical changes posterior decompression fixation L4-L5 with transpedicular screws at each level redemonstrated similar to prior CT. Right buttock stimulator pack present with intrathecal spinal stimulator leads posterior to T7-T10. No significant listhesis. Mildly exaggerated thoracic kyphosis. Vertebral body heights are maintained. Mild multilevel loss of disc height with adjacent endplate remodeling most pronounced T6-T8, mildly progressed from prior. Facet alignment is maintained. There is sclerosis and subchondral cystic change at bilateral sacroiliac joints which appears relatively symmetric. IMPRESSION: 1. No acute fracture of the thoracic spine. 2. No acute fracture of the lumbar spine. 3. Increased sequela of bilateral sacroiliitis 4. Mild progression of lower thoracic spondylosis. Communications Operator: CHERIE Transcribe Date/Time: Jul 03 2024 6:15P Dictated by : IDA RUFFIN MD This examination was interpreted and the report reviewed and electronically signed by: IDA RUFFIN MD on Jul 03 2024 6:26PM EST [id number] Normal [facility] CT THORACIC SPINE WO IVCONon 07-03-2024 CT THORACIC SPINE WO IVCON * * *Final Report* * * DATE OF EXAM: Jul 03 2024 5:31PM [facility] 0514 - CT THORACIC SPINE WO IVCON / PROCEDURE REASON: Spine fracture, thoracic, traumatic * * * * Physician Interpretation * * * * EXAMINATION: CT THORACIC SPINE WO IVCON, CT LUMBAR SPINE WO IVCON CLINICAL HISTORY: Low back pain. TECHNIQUE: Spiral, high resolution axial unenhanced images were obtained from the cervicothoracic junction to the sacrum with sagittal and coronal planar reconstructions. CT Radiation dose: Integrated Dose-Length Product (DLP) for this visit = 2778 mGy*cm. CT Dose Reduction Employed: Automated exposure control(AEC) and iterative recon COMPARISON: CTs dated 10/03/2018 and 12/02/2017. FINDINGS: Postsurgical changes posterior decompression fixation L4-L5 with transpedicular screws at each level redemonstrated similar to prior CT. Right buttock stimulator pack present with intrathecal spinal stimulator leads posterior to T7-T10. No significant listhesis. Mildly exaggerated thoracic kyphosis. Vertebral body heights are maintained. Mild multilevel loss of disc height with adjacent endplate remodeling most pronounced T6-T8, mildly progressed from prior. Facet alignment is maintained. There is sclerosis and subchondral cystic change at bilateral sacroiliac joints which appears relatively symmetric. IMPRESSION: 1. No acute fracture of the thoracic spine. 2. No acute fracture of the lumbar spine. 3. Increased sequela of bilateral sacroiliitis 4. Mild progression of lower thoracic spondylosis. Communications Operator: CHERIE Transcribe Date/Time: Jul 03 2024 6:15P Dictated by : IDA RUFFIN MD This examination was interpreted and the report reviewed and electronically signed by: IDA RUFFIN MD on Jul 03 2024 6:26PM EST [id number] Normal [facility] Comprehensive metabolic 2000 panelon 07-03-2024 Albumin [Mass/Vol] 4.1 g/dL Normal 3.9-4.9 [facility] Comment on above: Order Comment: Speci men Type: BLOOD SPECIMEN Ordering Facility: [facility] Address: [address] [place] [address] Performed By: #### 2 4323-8, 57234-3, 3016-3, 3024-7 #### [facility] CLIA [id number] [address] STATES OF [facility] ALP [Catalytic activity/Vol] 64 U/L Normal 34-123 [facility] Comment on above: Order Comment: Speci men Type: BLOOD SPECIMEN Ordering Facility: [facility] Address: [address] [place] [address] Performed By: #### 2 4323-8, 42364-0, 6-3, 3024-7 #### [facility] CLIA [id number] [address] STATES OF [facility] ALT With P-5'-P [Catalytic activity/Vol] 24 U/L Normal 7-38 [facility] Comment on above: Order Comment: Speci men Type: BLOOD SPECIMEN Ordering Facility: [facility] Address: [address] [place] [address] Performed By: #### 2 4323-8, 12019-0, 6-3, 3024-7 #### [facility] CLIA [id number] [address] STATES OF [facility] Anion gap [Moles/Vol] 9 mmol/L Normal 8-15 [facility] Comment on above: Order Comment: Speci men Type: BLOOD SPECIMEN Ordering Facility: [facility] Address: [address] [place] [address] Performed By: #### 2 4323-8, 33576-5, 6-3, 3024-7 #### [facility] CLIA [id number] [address] OF [facility] AST With P-5'-P [Catalytic activity/Vol] 24 U/L Normal 13-35 [facility] Comment on above: Order Comment: Speci men Type: BLOOD SPECIMEN Ordering Facility: [facility] Address: [address] [place] [address] Performed By: #### 2 4323-8, 34587-1, 3015-3, 7 #### [facility] CLIA [id number] [address] [place] [address] [place] Bilirubin [Mass/Vol] 0.2 mg/dL Normal 0.2-1.3 [facility] Comment on above: Order Comment: Speci men Type: BLOOD SPECIMEN Ordering Facility: [facility] Address: [address] [place] [address] Performed By: #### 2 4323-8, 59204-2, 3015-3, 7 #### [facility] CLIA [id number] [address] [place] [address] [place] Calcium [Mass/Vol] 9.3 mg/dL Normal 8.5-10.2 [facility] Comment on above: Order Comment: Speci men Type: BLOOD SPECIMEN Ordering Facility: [facility] Address: [address] [place] [address] Performed By: #### 2 4323-8, 98527-3, 3, 7 #### [facility] CLIA [id number] 1 [place] [address] [place] Chloride [Moles/Vol] 106 mmol/L Normal 98-107 [facility] Comment on above: Order Comment: Speci men Type: BLOOD SPECIMEN Ordering Facility: [facility] Address: [address] [place] [address] Performed By: #### 2 3-8, 69954-0, 3, 7 #### [facility] CLIA [id number] [address] [place] [address] [place] CO2 [Moles/Vol] 26 mmol/L Normal 22-30 [facility] Comment on above: Order Comment: Speci men Type: BLOOD SPECIMEN Ordering Facility: [facility] Address: [address] [place] [address] Performed By: #### 2 4323-8, 34347-3, 6-3, 3023-7 #### [facility] CLIA [id number] [address] [place] [address] [place] Creatinine [Mass/Vol] 1.16 mg/dL High 0.58-0.96 [facility] Comment on above: Order Comment: Speci men Type: BLOOD SPECIMEN Ordering Facility: [facility] Address: [address] [place] [address] Performed By: #### 2 4323-8, 44948-4, 6-3, 3023-7 #### [facility] CLIA [id number] [address] OF [facility] Creatinine and Glomerular filtration rate.predicted panel (S/P/Bld) 55 mL/min/1.73m??? Low >=60 [facility] Comment on above: Order Comment: Donell orozco Type: BLOOD SPECIMEN Ordering Facility: [facility] Address: [address] [place] [address] Result Comment: Susan mated Glomerular Filtration Rate (eGFR) is calculated using the 2020 CKD-EPI creatinine equation. This equation utilizes serum creatinine, sex, and age as parameters. The creatinine assay has traceable calibration to isotope dilution-mass spectrometry. Refer to KDIGO guidelines for clinical interpretation. In patients with unstable renal function, e.g. those with acute kidney injury, the eGFR may not accurately reflect actual GFR. Performed By: #### 2 4323-8, 77700-2, 6-3, 302-7 #### [facility] CLIA [id number] [address] [place] [address] [place] Glucose [Mass/Vol] 113 mg/dL High 74-99 [facility] Comment on above: Order Comment: Mirzai men Type: BLOOD SPECIMEN Ordering Facility: [facility] Address: [address] [place] [address] Result Comment: The [place] Diabetes Association (ADA) provides guidance for cutoff values for fasting glucose and random glucose. The ADA defines fasting as no caloric intake for at least 8 hours. Fasting plasma glucose results between 100 to 125 [...] Standards of Medical Care in Diabetes 2016, [place] [employer]. Diabetes Care. 2016.39(Suppl 1). Performed By: #### 2 4323-8, 59111-8, 3016-3, 3024-7 #### [facility] CLIA [id number] [address] [place] [address] [place] Potassium [Moles/Vol] 4.0 mmol/L Normal 3.7-5.1 [facility] Comment on above: Order Comment: Donell orozco Type: BLOOD SPECIMEN Ordering Facility: [facility] Address: [address] [place] [address] Performed By: #### 2 4323-8, 84063-5, 6-3, 302-7 #### [facility] CLIA [id number] [address] [place] [address] [place] Protein [Mass/Vol] 6.9 g/dL Normal 6.3-8.0 [facility] Comment on above: Order Comment: Donell orozco Type: BLOOD SPECIMEN Ordering Facility: [facility] Address: [address] [place] [address] Performed By: #### 2 4323-8, 59414-6, 6-3, 3023-7 #### [facility] CLIA [id number] [address] [place] [address] [place] Sodium [Moles/Vol] 141 mmol/L Normal 136-144 [facility] Comment on above: Order Comment: Donell men Type: BLOOD SPECIMEN Ordering Facility: [facility] Address: [address] [place] [address] Performed By: #### 2 4323-8, 14672-2, 3016-3, 3024-7 #### [facility] CLIA [id number] [address] [place] [address] [place] Urea nitrogen [Mass/Vol] 17 mg/dL Normal 7-21 [facility] Comment on above: Order Comment: Speci men Type: BLOOD SPECIMEN Ordering Facility: [facility] Address: [address] [place] [address] Performed By: #### 2 4323-8, 47737-7, 3016-3, 3024-7 #### [facility] CLIA [id number] [address] [place] Albumin [Mass/Vol] 3.9 g/dL Normal 3.9-4.9 [facility] Comment on above: Order Comment: Speci men Type: BLOOD SPECIMEN Ordering Facility: [facility] Address: [address] [place] [address] Performed By: #### 2 4323-8 #### [facility] CLIA [id number] [address] [place] ALP [Catalytic activity/Vol] 59 U/L Normal 34-123 [facility] Comment on above: Order Comment: Speci men Type: BLOOD SPECIMEN Ordering Facility: [facility] Address: [address] [place] [address] Performed By: #### 2 4323-8 #### [facility] CLIA [id number] [address] [place] ALT With P-5'-P [Catalytic activity/Vol] 20 U/L Normal 7-38 [facility] Comment on above: Order Comment: Speci men Type: BLOOD SPECIMEN Ordering Facility: [facility] Address: [address] [place] [address] Performed By: #### 2 4323-8 #### [facility] CLIA [id number] [address] [place] Anion gap [Moles/Vol] 8 mmol/L Normal 8-15 [facility] Comment on above: Order Comment: Speci men Type: BLOOD SPECIMEN Ordering Facility: [facility] Address: [address] [place] [address] Performed By: #### 2 4323-8 #### [facility] CLIA [id number] [address] OF [facility] AST With P-5'-P [Catalytic activity/Vol] 18 U/L Normal 13-35 [facility] Comment on above: Order Comment: Speci men Type: BLOOD SPECIMEN Ordering Facility: [facility] Address: [address] [place] [address] Performed By: #### 2 4323-8 #### [facility] CLIA [id number] [address] [place] Bilirubin [Mass/Vol] 0.2 mg/dL Normal 0.2-1.3 [facility] Comment on above: Order Comment: Speci men Type: BLOOD SPECIMEN Ordering Facility: [facility] Address: [address] [place] [address] Performed By: #### 2 4323-8 #### [facility] CLIA [id number] [address] [place] Calcium [Mass/Vol] 9.3 mg/dL Normal 8.5-10.2 [facility] Comment on above: Order Comment: Speci men Type: BLOOD SPECIMEN Ordering Facility: [facility] Address: [address] [place] [address] Performed By: #### 2 4323-8 #### [facility] CLIA [id number] [address] [place] Chloride [Moles/Vol] 109 mmol/L High 98-107 [facility] Comment on above: Order Comment: Speci men Type: BLOOD SPECIMEN Ordering Facility: [facility] Address: [address] [place] [address] Performed By: #### 2 4323-8 #### [facility] CLIA [id number] [address] [place] CO2 [Moles/Vol] 27 mmol/L Normal 22-30 [facility] Comment on above: Order Comment: Speci men Type: BLOOD SPECIMEN Ordering Facility: [facility] Address: [address] [place] [address] Performed By: #### 2 4323-8 #### [facility] CLIA [id number] [address] OF [facility] Creatinine [Mass/Vol] 1.21 mg/dL High 0.58-0.96 [facility] Comment on above: Order Comment: Donell men Type: BLOOD SPECIMEN Ordering Facility: [facility] Address: [address] [place] [address] Performed By: #### 2 4323-8 #### [facility] CLIA [id number] [address] Creatinine and Glomerular filtration rate.predicted panel (S/P/Bld) 52 mL/min/1.73m??? Low >=60 [facility] Comment on above: Order Comment: Donell orozco Type: BLOOD SPECIMEN Ordering Facility: [facility] Address: [address] [place] [address] Result Comment: Susan mated Glomerular Filtration Rate (eGFR) is calculated using the 2020 CKD-EPI creatinine equation. This equation utilizes serum creatinine, sex, and age as parameters. The creatinine assay has traceable calibration to isotope dilution-mass spectrometry. Refer to KDIGO guidelines for clinical interpretation. In patients with unstable renal function, e.g. those with acute kidney injury, the eGFR may not accurately reflect actual GFR. Performed By: #### 2 4323-8 #### [facility] CLIA [id number] [address] [place] [address] [place] Glucose [Mass/Vol] 116 mg/dL High 74-99 [facility] Comment on above: Order Comment: Donell pam Type: BLOOD SPECIMEN Ordering Facility: [facility] Address: [address] [place] [address] Result Comment: The [place] Diabetes Association (ADA) provides guidance for cutoff values for fasting glucose and random glucose. The ADA defines fasting as no caloric intake for at least 8 hours. Fasting plasma glucose results between 100 to 125 [...] Standards of Medical Care in Diabetes 2016, [place] [employer]. Diabetes Care. 2016.39(Suppl 1). Performed By: #### 2 4323-8 #### [facility] CLIA [id number] [address] [place] Potassium [Moles/Vol] 4.2 mmol/L Normal 3.7-5.1 [facility] Comment on above: Order Comment: Speci men Type: BLOOD SPECIMEN Ordering Facility: [facility] Address: [address] [place] [address] Performed By: #### 2 4323-8 #### [facility] CLIA [id number] [address] [place] [address] [place] Protein [Mass/Vol] 6.7 g/dL Normal 6.3-8.0 [facility] Comment on above: Order Comment: Speci men Type: BLOOD SPECIMEN Ordering Facility: [facility] Address: [address] [place] [address] Performed By: #### 2 4323-8 #### [facility] CLIA [id number] [address] [place] Sodium [Moles/Vol] 144 mmol/L Normal 136-144 [facility] Comment on above: Order Comment: Speci men Type: BLOOD SPECIMEN Ordering Facility: [facility] Address: [address] [place] [address] Performed By: #### 2 4323-8 #### [facility] CLIA [id number] [address] [place] Urea nitrogen [Mass/Vol] 17 mg/dL Normal 7-21 [facility] Comment on above: Order Comment: Speci men Type: BLOOD SPECIMEN Ordering Facility: [facility] Address: [address] [place] [address] Performed By: #### 2 4323-8 #### [facility] CLIA [id number] [address] [place] [address] [place] HISTORY PHYSICALon HISTORY PHYSICAL HNO ID: [id number] Author: JOSEFINA HELLER PA-C Service: Hospital Medicine Author Type: Physician [employer] Type: H&P Filed: 07/03/2024 06:04 Note Text: DEPARTMENT OF HOSPITAL MEDICINE HISTORY AND PHYSICAL EXAM SERVICE DATE: 07/03/2024 SERVICE TIME: 5:10 AM Primary Care Physician: No primary care provider on file. NIGHT AND WEEKEND COVERAGE: From 7am - 7pm, please call [phone] After 7pm, please call cross cover pager #[phone] Subjective CHIEF COMPLAINT: Back pain HPI: This is a 58 year old female with a PMHx of CAD, COPD, A. Fib., CHF, Cardiac Pacemaker in Situ, DM Type 2, HTN, and Hypothyroidism presents with sharp/stabbing, constant back pain that has been present for the last 3-4 weeks. She states she hit her back on the bathtub. Pain radiates to the chest area. She also reports of new leg weakness since yesterday with numbness/tingling in the toes. She also states she's had urinary incontinence along with loss of feeling in the R groin area. She denies fecal incontinence. She has had fatigue, nausea, chest/abdominal pain, presyncope, vertigo, and disequilibrium. She denies weight changes, fever, chills, night sweats, body aches, SOB, wheezing, vomiting, constipation, and syncope. ER course: Labs: CMP Na 144, K 4.2, Cr 1.21, Glucose 116. CBC WBC 7.47, Hgb 13.0, Plt 203. Tx: Morphine 4 mg IV x4 and Zofran 4 mg IV 1x given. Discussed with ED staff, and patient accepted [facility] to admit for back pain with new b/l leg weakness. PAST MEDICAL HISTORY Diagnosis Date Anxiety Atrial fibrillation (HCC) 07/03/2024 CAD (coronary artery disease) 07/03/2024 Congestive heart failure (HCC) 07/03/2024 Controlled type 2 diabetes mellitus without complication, without long-term current use of insulin (HCC) 07/03/2024 COPD (chronic obstructive pulmonary disease) ([facility]) 07/03/2024 Depression Gastric mass Hypertension Hypothyroid ELOY (obstructive sleep apnea) 07/03/[address] [place] . pacemaker checked at [facility] Sick sinus syndrome ([facility]) Sleep apnea uses cpap at night PAST SURGICAL HISTORY Procedure Laterality Date ANESTHESIA LUMBAR REGION NOS 02/07/2016 L4-L5 fusion; [facility] APPENDECTOMY CARPAL TUNNEL left HYSTERECTOMY HX LAPAROSCOPY DIAGNOSTIC NEUROPLASTY AND/TRANSPOSITION ULNAR NERVE ELBOW bilateral- with revisions PACEMAKER (PM) 2003 PAST SURGICAL HISTORY OF lumbar pain injections. FAMILY HISTORY Problem Relation Age of Onset Multiple Sclerosis Father 26 at age 41 Multiple Sclerosis Daughter 30 dx Mar 2016 other (orthostatic hypotension) Sister Social History Tobacco Use Smoking status: Former Current packs/day: 0.00 Average packs/day: 0.5 packs/day for 25.0 years (12.5 ttl pk-yrs) Types: Cigarettes Start date: 05/21/1990 Quit date: 05/22/2015 Years since quittin.1 Smokeless tobacco: Never Tobacco comments: quit 2 years ago Substance Use Topics Alcohol use: No Drug use: No Comment: Heavy EtOH use layla 2000. HOME MEDICATIONS: Prior to Admission Medications Prescriptions Last Dose Informant Patient Reported? Taking? ARIPIPRAZOLE (ABILIFY ORAL) Yes No Sig: Take by mouth once daily. Calcium Carbonate-Vitamin D3 (VITAMIN D-3) 180-5,000 mg-unit tab Yes No Sig: Take by mouth once each week. DULoxetine (CYMBALTA) 60 mg capsule Yes Yes Sig: Take 60 mg by mouth once daily. Fenofibrate (LOFIBRA) 54 mg tablet Yes Yes Sig: Take 54 mg by mouth once daily. Ferrous Fumarate 325 mg (106 mg iron) tab Yes No Sig: Take 325 mg by mouth twice daily. LORazepam (ATIVAN) 1 mg tablet Yes No Sig: Take 1 mg by mouth twice daily. Omeprazole Magnesium 20 mg cpDR Yes No Sig: Take 20 mg by mouth once daily. SUMAtriptan (IMITREX) 50 mg tablet Yes Yes Sig: Take 50 mg by mouth as needed for migraine headache (see administration instructions). May repeat dose after 2 hours if needed. Maximum daily dose is 200 mg per day. amLODIPine (NORVASC) 5 mg tablet Yes Yes Sig: Take 5 mg by mouth two times a day. apixaban (ELIQUIS) 5 mg tab(s) Yes Yes Sig: Take 5 mg by mouth two times a day. busPIRone (BUSPAR) 15 mg tablet Yes Yes Sig: Take 15 mg by mouth two times a day. busPIRone (BUSPAR) 5 mg tablet Yes Yes Sig: Take 5 mg by mouth two times a day. calcitonin,salmon, (MIACALCIN) 200 unit/actuation nasal spray Yes Yes Sig: Use 1 spray in the nose once daily. cholecalciferol, Vitamin D3, (D3-50 CHOLECALCIFEROL) 50,000 unit cap capsule Yes No Sig: Take 50,000 Units by mouth once each week. clonazePAM (KLONOPIN) 0.5 mg tablet Yes Yes Sig: Take 0.5 mg by mouth four times daily. cyclobenzaprine (FLEXERIL) 10 mg tablet Yes Yes Sig: Take 10 mg by mouth two times a day as needed for muscle spasm. denosumab (PROLIA) 60 mg/mL Yes Yes Sig: Inject 60 mg subcutaneously once every 6 months. gabapentin (NEURONTIN) 300 mg capsule Yes Yes Sig: Take 300 mg by (more content not included)... Normal [facility] Magnesium SerPl-mCncon 07-03 Magnesium [Mass/Vol] 2.0 mg/dL Normal 1.7-2.3 [facility] Comment on above: Order Comment: Speci men Type: BLOOD SPECIMEN Ordering Facility: [facility] Address: [address] [place] [address] Performed By: #### 2 4323-8, 16807-7, 3016-3, 3024-7 #### [facility] CLIA [id number] [address] [place] [address] [place] T3 SerPl-mCncon 07-03-2024 T3 [Mass/Vol] 146 ng/dL Normal 79-165 [facility] Comment on above: Order Comment: Speci men Type: BLOOD SPECIMEN Ordering Facility: [facility] Address: [address] [place] [address] Performed By: #### 3 053-6 #### [facility] CLIA [id number] [address] [place] [address] [place] T4 Free SerPl-mCncon 07-03- 025 Free T4 [Mass/Vol] 0.9 ng/dL Normal 0.9-1.7 [facility] Comment on above: Order Comment: Speci men Type: BLOOD SPECIMEN Ordering Facility: [facility] Address: [address] [place], [place] [address] Performed By: #### 2 4323-8, 69959-3, 3016-3, 3024-7 #### [facility] CLIA [id number] [address] THERAPY NTon 07-03-2024 THERAPY NT HNO ID: [id number] Author: LEO SERRA OTR/L Service: Occupational Therapy Author Type: Occupational Therapist Type: Therapy (PT/OT/Speech/Resp) Filed: 07/03/2024 15:40 Note Text: OCCUPATIONAL THERAPY MISSED VISIT SERVICE DATE: 07/03/2024 SERVICE TIME: 1538 ROOM: [place] [address] Patient not seen due to Clinical Appropriateness (on BR, imaging pending.). SIGNATURE: HAZEL Oliveira/L PATIENT NAME: Ramses Bradshaw DATE: July 03, 2024 TIME: 3:39 PM Normal [facility] THERAPY NT HNO ID: [id number] Author: SUMIT ARRIOLA, PT Service: Physical Therapy Author Type: Physical Therapist Type: Therapy (PT/OT/Speech/Resp) Filed: 07/03/2024 08:18 Note Text: PHYSICAL THERAPY MISSED VISIT SERVICE DATE: 07/03/2024 SERVICE TIME: 0818 ROOM: [place] [address] Patient not seen due to Clinical Appropriateness (bedrest pending spine imaging per ortho). Will reattempt as available and appropriate. SIGNATURE: Sumit Arriola, PT PATIENT NAME: Ramses Bradshaw DATE: July 03, 2024 TIME: 8:18 AM Normal [facility] TSH SerPl-aCncon 07-03-2024 TSH Qn 8.130 m[IU]/L High 0.270-4.200 [facility] Comment on above: Order Comment: Speci men Type: BLOOD SPECIMEN Ordering Facility: [facility] Address: [facility] [place] [address] Performed By: #### 2 4323-8, 18633-8, 3016-3, 3024-7 #### [facility] CLIA [id number] [address] [place] [address] [place] [facility] XR CHEST 1V FRONTALon 2024 XR CHEST 1V FRONTAL * * *Final Report* * * DATE OF EXAM: Jul 03 2024 3:49PM AKX [id number] - XR CHEST 1V FRONTAL / PROCEDURE REASON: Post-operative/post-pro cedure assessment * * * * Physician Interpretation * * * * EXAMINATION: CHEST RADIOGRAPH (SINGLE VIEW AP OR PA) CLINICAL HISTORY: Post-operative/post-pro cedure assessment, Evaluate tube, line, or lead position MQ: XC1_5 Comparison: Chest radiograph 10/11/2018 RESULT: Lines, tubes, and devices: Left-sided cardiac device with leads overlying the right atrium and right ventricle. Partially imaged spinal stimulator leads terminating at the T8 and T9 vertebral body levels, new from prior exam. Lungs and pleura: No consolidation. No lung mass. No pleural effusion. Cardiomediastinal silhouette: Normal cardiomediastinal silhouette. Other: No bony abnormalities. IMPRESSION: Support apparatus, as above. No acute airspace disease. Communications Operator: CHERIE Transcribe Date/Time: Jul 03 2024 4:06P Dictated by : ISABELA FELIPE MD This examination was interpreted and the report reviewed and electronically signed by: ISABELA FELIPE MD on Jul 03 2024 4:07PM EST [id number] Normal [facility] Absolute lymphocyte countOrd ered By: Kati Burkett on 07-02-2024 Lymphocytes Auto (Unsp spec) [#/Vol] 3.18 10*3/uL 0.83-4.[address] [facility] Absolute neutrophil countOrd ered By: Kati Burkett on 07-02-2024 Absolute neutrophil count 4.0 X10^3/uL 2.0-7.[address] [facility] Anion gap [Moles/Vol]Ordered By: Kati Burkett on 07-02-2024 Anion gap in Serum or Plasma 10 5-[address] [facility] Anion gap in Serum or Plasma Ordered By: Remus Ungrogelio on 07-02-2024 Anion gap [Moles/Vol] 10 mmol/L 07-23 [facility] Automated lymphocyte count a s percentage of total leukocytesOrdered By: Remus Ungrogelio on 07-02-2024 Lymphocytes/100 WBC Auto (Unsp spec) 40.0 % [facility] BUN/creatinine ratioOrdered By: Remus Ungrogelio on 07-02-2024 Urea nitrogen/Creatinine [Mass ratio] 14.9 mg/mg 12-[address] [facility] BUN/creatinine ratio 14.9 RATIO 12-28 [facility] Basic Metabolic Profile (BMP )on 07-02-2024 BUN/CRE 14.9 RATIO Normal 12-[address] [facility] Comment on above: Performed By: #### L 100.0100, L500.2500 ####[facility] [address] [place], [address] Calcium [Mass/Vol] 9.8 mg/dL Normal 7.6-11.0 [facility] Comment on above: Performed By: #### L 100.0100, L500.2500 ####[facility] [address] [place], [address] Chloride [Moles/Vol] 105 mmol/L Normal 98-108 [facility] Comment on above: Performed By: #### L 100.0100, L500.2500 ####[facility] [address] [place], [address] CO2 [Moles/Vol] 25.2 mmol/L Normal 21.0-32.[address] [facility] Comment on above: Performed By: #### L 100.0100, L500.2500 ####[facility] [address] [place], [address] Creatinine [Mass/Vol] 1.22 mg/dL High 0.70-1.20 [facility] Comment on above: Performed By: #### L 100.0100, L500.2500 ####[facility] [address] [place], [address] ECRCL 57.43 ml/min Normal 50-[address] [facility] Comment on above: Performed By: #### L 100.0100, L500.2500 ####[facility] [address] [place], [address] GAP 10 Normal 5-[address] [facility] Comment on above: Performed By: #### L 100.0100, L500.2500 ####[facility] [address] [place], [address] GFR/1.73 sq M.predicted among non-blacks MDRD (S/P/Bld) [Vol rate/Area] 51 mL/min/{1.73_m2} Low >[address] [facility] Comment on above: Result Comment: mL/m in/1.73m2 CKD-EPI Creatinine Equation (2020) Performed By: #### L 100.0100, L500.2500 ####[facility] [address] [place], [address] Glucose [Mass/Vol] 129 mg/dL High 70-99 [facility] Comment on above: Performed By: #### L 100.0100, L500.2500 ####[facility] [address] [place], [address] Potassium [Moles/Vol] 4.5 mmol/L Normal 3.3-5.1 [facility] Comment on above: Performed By: #### L 100.0100, L500.2500 ####[facility] [address] [place], [address] Sodium [Moles/Vol] 140 mmol/L Normal 133-145 [facility] Comment on above: Performed By: #### L 100.0100, L500.2500 ####[facility] [address] [place], [address] Urea nitrogen [Mass/Vol] 18 mg/dL Normal 4-[address] [facility] Comment on above: Performed By: #### L 100.0100, L500.2500 ####[facility] [address] [place], [address] Basophil percentageOrdered B y: Remus Ungur on 07-02-2024 Basophils/100 WBC (Bld) 0.4 % 0-1 [facility] Basophil percentage 0.4 % 0-1 [facility] CBC W/Diff, Automatedon 06-10-2024 Absolute Lymph 3.18 X10 3/uL Normal 0.83-4.[address] [facility] Comment on above: Performed By: #### L 100.0100, L500.2500 ####[facility] [address] [place], [address] Absolute Neut 4.0 X10 3/uL Normal 2.0-7.[address] [facility] Comment on above: Performed By: #### L 100.0100, L500.2500 ####[facility] [address] [place], [address] Basophils/100 WBC (Bld) 0.4 % Normal 0-1 [facility] Comment on above: Performed By: #### L 100.0100, L500.2500 ####[facility] [address] [place], [address] Eosinophils/100 WBC (Bld) 2.5 % Normal 0-[address] [facility] Comment on above: Performed By: #### L 100.0100, L500.2500 ####[facility] [address] [place], [address] Erythrocyte distribution width (RBC) [Ratio] 13.6 % Normal 11.6-14.[address] [facility] Comment on above: Performed By: #### L 100.0100, L500.2500 ####[facility] [address] [place], [address] Hematocrit (Bld) [Volume fraction] 41.3 % Normal 37-[address] [facility] Comment on above: Performed By: #### L 100.0100, L500.2500 ####[facility] [address] [place], [address] Hemoglobin (Bld) [Mass/Vol] 13.5 g/dL Normal 12.0-15.[address] [facility] Comment on above: Performed By: #### L 100.0100, L500.2500 ####[facility] [address] [place], [address] IG% 0.500 Normal 0.0-0.[address] [facility] Comment on above: Result Comment: IG% - Immature Granulocytes (promyelocytes, myelocytes andmetamyelocytes) > 1% indicates that a LEFT SHIFT is Present. Performed By: #### L 100.0100, L500.2500 ####[facility] [address] [place], [address] Lymphocytes/100 WBC (Bld) 40.0 % Normal 19-[address] [facility] Comment on above: Performed By: #### L 100.0100, L500.2500 ####[facility] [address] [place], [address] MCH (RBC) [Entitic mass] 28.7 pg Normal 27.0-32.[address] [facility] Comment on above: Performed By: #### L 100.0100, L500.2500 ####[facility] [address] [place], [address] MCHC (RBC) [Mass/Vol] 32.7 g/dL Normal 32-36 [facility] Comment on above: Performed By: #### L 100.0100, L500.2500 ####[facility] [address] [place], [address] MCV (RBC) [Entitic vol] 87.9 fL Normal 81-99 [facility] Comment on above: Performed By: #### L 100.0100, L500.2500 ####[facility] [address] [place], [address] Monocytes/100 WBC (Bld) 6.4 % Normal 0-10 [facility] Comment on above: Performed By: #### L 100.0100, L500.2500 ####[facility] [address] [place], [address] Neutrophils/100 WBC (Bld) 50.2 % Normal 47-[address] [facility] Comment on above: Performed By: #### L 100.0100, L500.2500 ####[facility] [address] [place], [address] Nucleated RBC (Bld) [#/Vol] 0 10*3/uL Normal 0-[address] [facility] Comment on above: Performed By: #### L 100.0100, L500.2500 ####[facility] [address] [place], [address] Platelet mean volume (Bld) [Entitic vol] 9.3 fL Normal 6.2-12.[address] [facility] Comment on above: Performed By: #### L 100.0100, L500.2500 ####[facility] [address] [place], [address] Platelets (Bld) [#/Vol] 228 10*3/uL Normal 150-[address] [facility] Comment on above: Performed By: #### L 100.0100, L500.2500 ####[facility] [address] [place], [address] RBC (Bld) [#/Vol] 4.70 10*6/uL Normal 4.2-5.4 [facility] Comment on above: Performed By: #### L 100.0100, L500.2500 ####[facility] [address] [place], [address] RDW SD 43.6 fl Normal 35.1-43.[address] [facility] Comment on above: Performed By: #### L 100.0100, L500.2500 ####[facility] [address] [place], [address] WBC (Bld) [#/Vol] 8.0 10*3/uL Normal 4.4-11.0 [facility] Comment on above: Performed By: #### L 100.0100, L500.2500 ####[facility] [address] [place], [address] Calcium [Mass/Vol]Ordered By : Kati Burkett on 07-02-2024 Serum or plasma calcium measurement (mass/volume) 9.8 mg/dL 7.6-11.[address] [facility] Carbon dioxide, total [Moles /volume] in Central venous bloodOrdered By: Kati Burkett on 07-02-2024 CO2 [Moles/Vol] 25.2 mmol/L 21.0-32.[address] [facility] Carbon dioxide, total [Moles/volume] in Central venous blood 25.2 mmol/L 21.0-32.[address] [facility] Chloride assayOrdered By: Shavon Burkett on 07-02-2024 Chloride [Moles/Vol] 105 mmol/L 98-108 [facility] Chloride assay 105 mmol/L 98-[address] [facility] Creatinine [Mass/Vol]Ordered By: Kati Burkett on 07-02-2024 Serum creatinine measurement (mass/volume) 1.22 mg/dL High 0.70-1.[address] [facility] Emergency Department Summary on 07-02-2024 Emergency Department Summary Normal [facility] Eosinophil percentageOrdered By: Kati Burkett on 07-02-2024 Eosinophils/100 WBC (Bld) 2.5 % 0-[address] [facility] Eosinophil percentage 2.5 % 0-5 [facility] Erythrocyte distribution wid th (RBC) [Ratio]Ordered By: Kati Burkett on 07-02-2024 Erythrocyte distribution width ratio 13.6 % 11.6-14.[address] [facility] Erythrocyte distribution width standard deviation 43.6 fl 35.1-43.[address] [facility] Erythrocyte distribution wid th ratioOrdered By: Kati Burkett on 07-02-2024 Erythrocyte distribution width (RBC) [Ratio] 13.6 % 11.6-14.[address] [facility] Erythrocyte distribution wid th standard deviationOrdered By: Kati Burkett on 07-02-2024 Erythrocyte distribution width (RBC) [Ratio] 43.6 fl 35.1-43.[address] [facility] Estimation of creatinine jennifer aranceOrdered By: Kati Burkett on 07-02-2024 Estimation of creatinine clearance 57.43 ml/min 50-[address] [facility] GFR/1.73 sq M.predicted barak g non-blacks MDRD (S/P/Bld) [Vol rate/Area]Ordered By: Kati Burkett on 07-02-2024 Glomerular filtration rate (GFR) estimation/1.73 sq m using serum, plasma, or whole b 51 Low >[address] [facility] Glomerular filtration rate ( GFR) estimation/1.73 sq m using serum, plasma, or whole bOrdered By: Kati Burkett on 07-02-2024 GFR/1.73 sq M.predicted among non-blacks MDRD (S/P/Bld) [Vol rate/Area] 51 mL/min/{1.73_m2} Low >[address] [facility] Glucose [Mass/Vol]Ordered By : Kati Burkett on 07-02-2024 Serum glucose measurement (mass/volume) 129 mg/dL High 70-[address] [facility] Hematocrit Auto (Bld) [Volum e fraction]Ordered By: Kati Burkett on 07-02-2024 Hematocrit (Bld) [Volume fraction] 41.3 % 37-[address] [facility] Automated blood hematocrit (percentage) 41.3 % 37-[address] [facility] Hemoglobin measurementOrdere d By: Kati Burkett on 07-02-2024 Hemoglobin (Bld) [Mass/Vol] 13.5 g/dL 12.0-15.[address] [facility] Hemoglobin measurement 13.5 g/dL 12.0-15.0 [place] Immature granulocytes/100 WB C Auto (Bld)Ordered By: Kati Burkett on 07-02-2024 Immature granulocytes/100 WBC (Bld) 0.500 % 0.0-0.[address] [facility] Automated immature granulocyte percentage 0.500 % 0.0-0.[address] [facility] Lymphocytes Auto (Unsp spec) [#/Vol]Ordered By: Remus Flaquito on 07-02-2024 Absolute lymphocyte count 3.18 X10^3/uL 0.83-4.[address] [facility] Lymphocytes/100 WBC Auto (Un sp spec)Ordered By: Remus Ungrogelio on 07-02-2024 Automated lymphocyte count as percentage of total leukocytes 40.0 % 19-[address] [facility] MCV (RBC) [Entitic vol]Order ed By: Remus Flaquito on 07-02-2024 MCV (mean corpuscular volume) determination 87.9 fL 81-[address] [facility] MCV (mean corpuscular volume ) determinationOrdered By: Remus Burkett on 07-02-2024 MCV (RBC) [Entitic vol] 87.9 fL 81-99 [facility] Mean corpuscular hemoglobin (MCH) determinationOrdered By: Remus Ungrogelio on 07-02-2024 MCH (RBC) [Entitic mass] 28.7 pg 27.0-32.[address] [facility] Mean corpuscular hemoglobin (MCH) determination 28.7 pg 27.0-32.[address] [facility] Mean corpuscular hemoglobin concentration (MCHC) determinationOrdered By: Remus Flaquito on 07-02-2024 Mean corpuscular hemoglobin concentration (MCHC) determination 32.7 g/dL 32-[address] [facility] Mean platelet volume determi nationOrdered By: Remus Ungrogelio on 07-02-2024 Mean platelet volume determination 9.3 fl 6.2-12.[address] [facility] Monocyte percentageOrdered B y: Remus Ungrogelio on 07-02-2024 Monocytes/100 WBC (Bld) 6.4 % 0-10 [facility] Monocyte percentage 6.4 % 0-10 [facility] Neutrophil percentageOrdered By: Remus Flaquito on 07-02-2024 Neutrophils/100 WBC (Bld) 50.2 % 47-[address] [facility] Neutrophil percentage 50.2 % 47-70 [facility] Nucleated red blood cell per centageOrdered By: Kati Burkett on 07-02-2024 Nucleated red blood cell percentage 0 % 0-[address] [facility] Platelet countOrdered By: Shavon Burkett on 07-02-2024 Platelets (Bld) [#/Vol] 228 10*3/uL 150-[address] [facility] Platelet count 228 K/mm3 150-[address] [facility] Potassium (Unsp spec) [Mass/ Vol]Ordered By: Kati Burkett on 07-02-2024 Potassium measurement (mass/volume) 4.5 mmol/L 3.3-5.[address] [facility] Potassium measurement (mass/ volume)Ordered By: Kati Burkett on 07-02-2024 Potassium (Unsp spec) [Mass/Vol] 4.5 mmol/L 3.3-5.[address] [facility] RBC Auto (Bld) [#/Vol]Ordere d By: Kati Burkett on 07-02-2024 RBC (Bld) [#/Vol] 4.70 10*6/uL 4.2-5.4 [facility] Automated blood erythrocyte count 4.70 M/mm3 4.2-5.[address] [facility] Serum creatinine measurement (mass/volume)Ordered By: Kati Burkett on 07-02-2024 Creatinine [Mass/Vol] 1.22 mg/dL High 0.70-1.20 [facility] Serum glucose measurement (m ass/volume)Ordered By: Kati Burkett on 07-02-2024 Glucose [Mass/Vol] 129 mg/dL High 70-99 [facility] Serum or plasma calcium heather urement (mass/volume)Ordered By: Kati Burkett on 07-02-2024 Calcium [Mass/Vol] 9.8 mg/dL 7.6-11.0 [facility] Serum or plasma urea nitroge n measurement (mass/volume)Ordered By: Kati Burkett on 07-02-2024 Urea nitrogen [Mass/Vol] 18 mg/dL 4-[address] [facility] Sodium levelOrdered By: Antoinette Burkett on 07-02-2024 Sodium [Moles/Vol] 140 mmol/L 133-145 [facility] Sodium level 140 mmol/L 133-[address] [facility] Urea nitrogen [Mass/Vol]Orde red By: Kati Burkett on 07-02-2024 Serum or plasma urea nitrogen measurement (mass/volume) 18 mg/dL 4- [facility] White blood cell (WBC) count Ordered By: Kati Burkett on 07-02-2024 WBC (Bld) [#/Vol] 8.0 10*3/uL 4.4-11.0 [facility] White blood cell (WBC) count 8.0 K/mm3 4.4-11.[address] [facility] Emergency Department Summary on 06-29-2024 Emergency Department Summary Normal [facility] Duplex ultrasound of carotid artery reportOrdered By: Keon France on 06-28-2024 Study [address] [facility] Work Phone: Carotid Duplex Ultrasoundon 06-26-2024 Carotid Duplex Ultrasound Normal [facility] 12 Lead EKGon 06-13-2024 12 Lead EKG Normal [facility] Emergency Department Summary on 06-13-2024 Emergency Department Summary Normal [facility] Scapulaon 06-13-2024 Scapula [address] [facility] Spine Thoracic without Contr ason 06-13-2024 Spine Thoracic without Contras Normal [facility] Absolute lymphocyte countOrd ered By: Kareen Bradshaw on 06-11-2024 Lymphocytes Auto (Unsp spec) [#/Vol] 3.53 10*3/uL 0.83-4.[address] [facility] Absolute neutrophil countOrd ered By: Kareen Bradshaw on 06-11-2024 Absolute neutrophil count 6.1 X10^3/uL 2.0-7.[address] [facility] Anion gap [Moles/Vol]Ordered By: Kareen Bradshaw on 06-11-2024 Anion gap in Serum or Plasma 12 5- [facility] Anion gap in Serum or Plasma Ordered By: Kareen Bradshaw on 06-11-2024 Anion gap [Moles/Vol] 12 mmol/L - [facility] Automated lymphocyte count a s percentage of total leukocytesOrdered By: Kareen Bradshaw on 06-11-2024 Lymphocytes/100 WBC Auto (Unsp spec) 32.7 % - [facility] BUN/creatinine ratioOrdered By: Kareen Bradshaw on 06-11-2024 Urea nitrogen/Creatinine [Mass ratio] 18.0 mg/mg - [facility] BUN/creatinine ratio 18.0 RATIO - [facility] Basic Metabolic Profile (BMP )on 06-11-2024 BUN/CRE 18.0 RATIO Normal - [facility] Comment on above: Performed By: #### L 100.0100, L501.9520, L503.7505, L500.2500 ####[facility] [address] [place], [address] Calcium [Mass/Vol] 9.5 mg/dL Normal 7.6-11.0 [facility] Comment on above: Performed By: #### L 100.0100, L501.9520, L503.7505, L500.2500 ####[facility] [address] [place], [address] Chloride [Moles/Vol] 107 mmol/L Normal 98-108 [facility] Comment on above: Performed By: #### L 100.0100, L501.9520, L503.7505, L500.2500 ####[facility] [address] [place], [address] CO2 [Moles/Vol] 23.2 mmol/L Normal 21.0-32.[address] [facility] Comment on above: Performed By: #### L 100.0100, L501.9520, L503.7505, L500.2500 ####[facility] [address] [place], [address] Creatinine [Mass/Vol] 1.20 mg/dL Normal 0.70-1.20 [facility] Comment on above: Performed By: #### L 100.0100, L501.9520, L503.7505, L500.2500 ####[facility] [address] [place], [address] GAP 12 Normal 5-[address] [facility] Comment on above: Performed By: #### L 100.0100, L501.9520, L503.7505, L500.2500 ####[facility] [address] [place], [address] GFR/1.73 sq M.predicted among non-blacks MDRD (S/P/Bld) [Vol rate/Area] 52 mL/min/{1.73_m2} Low >[address] [facility] Comment on above: Result Comment: mL/m in/1.73m2 CKD-EPI Creatinine Equation (2020) Performed By: #### L 100.0100, L501.9520, L503.7505, L500.2500 ####[facility] [address] [place], [address] Glucose [Mass/Vol] 112 mg/dL High 70-99 [facility] Comment on above: Performed By: #### L 100.0100, L501.9520, L503.7505, L500.2500 ####[facility] [address] [place], [address] Potassium [Moles/Vol] 4.9 mmol/L Normal 3.3-5.1 [facility] Comment on above: Performed By: #### L 100.0100, L501.9520, L503.7505, L500.2500 ####[facility] [address] [place], [address] Sodium [Moles/Vol] 141 mmol/L Normal 133-145 [facility] Comment on above: Performed By: #### L 100.0100, L501.9520, L503.7505, L500.2500 ####[facility] [address] [place], [address] Urea nitrogen [Mass/Vol] 22 mg/dL High 4-[address] [facility] Comment on above: Performed By: #### L 100.0100, L501.9520, L503.7505, L500.2500 ####[facility] [address] [place], [address] Basophil percentageOrdered B y: Kareen Bradshaw on 06-11-2024 Basophils/100 WBC (Bld) 0.5 % 0-1 [facility] Basophil percentage 0.5 % 0-1 [facility] CBC W/Diff, Automatedon Absolute Lymph 3.53 X10 3/uL Normal 0.83-4.[address] [facility] Comment on above: Performed By: #### L 100.0100, L501.9520, L503.7505, L500.2500 ####[facility] [address] [place], [address] Absolute Neut 6.1 X10 3/uL Normal 2.0-7.[address] [facility] Comment on above: Performed By: #### L 100.0100, L501.9520, L503.7505, L500.2500 ####[facility] [address] [place], [address] Basophils/100 WBC (Bld) 0.5 % Normal 0-1 [facility] Comment on above: Performed By: #### L 100.0100, L501.9520, L503.7505, L500.2500 ####[facility] [address] [place], [address] Eosinophils/100 WBC (Bld) 2.8 % Normal 0-[address] [facility] Comment on above: Performed By: #### L 100.0100, L501.9520, L503.7505, L500.2500 ####[facility] [address] [place], [address] Erythrocyte distribution width (RBC) [Ratio] 14.0 % Normal 11.6-14.[address] [facility] Comment on above: Performed By: #### L 100.0100, L501.9520, L503.7505, L500.2500 ####[facility] [address] [place], [address] Hematocrit (Bld) [Volume fraction] 42.1 % Normal 37-[address] [facility] Comment on above: Performed By: #### L 100.0100, L501.9520, L503.7505, L500.2500 ####[facility] [address] [place], [address] Hemoglobin (Bld) [Mass/Vol] 13.7 g/dL Normal 12.0-15.[address] [facility] Comment on above: Performed By: #### L 100.0100, L501.9520, L503.7505, L500.2500 ####[facility] [address] [place], [address] IG% 0.600 Normal 0.0-0.[address] [facility] Comment on above: Result Comment: IG% - Immature Granulocytes (promyelocytes, myelocytes andmetamyelocytes) > 1% indicates that a LEFT SHIFT is Present. Performed By: #### L 100.0100, L501.9520, L503.7505, L500.2500 ####[facility] [address] [place], [address] Lymphocytes/100 WBC (Bld) 32.7 % Normal 19-[address] [facility] Comment on above: Performed By: #### L 100.0100, L501.9520, L503.7505, L500.2500 ####[facility] [address] [place], [address] MCH (RBC) [Entitic mass] 28.7 pg Normal 27.0-32.[address] [facility] Comment on above: Performed By: #### L 100.0100, L501.9520, L503.7505, L500.2500 ####[facility] [address] [place], [address] MCHC (RBC) [Mass/Vol] 32.5 g/dL Normal 32-36 [facility] Comment on above: Performed By: #### L 100.0100, L501.9520, L503.7505, L500.2500 ####[facility] [address] [place], [address] MCV (RBC) [Entitic vol] 88.1 fL Normal 81-99 [facility] Comment on above: Performed By: #### L 100.0100, L501.9520, L503.7505, L500.2500 ####[facility] [address] [place], [address] Monocytes/100 WBC (Bld) 7.4 % Normal 0-10 [facility] Comment on above: Performed By: #### L 100.0100, L501.9520, L503.7505, L500.2500 ####[facility] [address] [place], [address] Neutrophils/100 WBC (Bld) 56.0 % Normal 47-[address] [facility] Comment on above: Performed By: #### L 100.0100, L501.9520, L503.7505, L500.2500 ####[facility] [address] [place], [address] Nucleated RBC (Bld) [#/Vol] 0 10*3/uL Normal 0-[address] [facility] Comment on above: Performed By: #### L 100.0100, L501.9520, L503.7505, L500.2500 ####[facility] [address] [place], [address] Platelet mean volume (Bld) [Entitic vol] 9.6 fL Normal 6.2-12.[address] [facility] Comment on above: Performed By: #### L 100.0100, L501.9520, L503.7505, L500.2500 ####[facility] [address] [place], [address] Platelets (Bld) [#/Vol] 229 10*3/uL Normal 150-[address] [facility] Comment on above: Performed By: #### L 100.0100, L501.9520, L503.7505, L500.2500 ####[facility] [address] [place], [address] RBC (Bld) [#/Vol] 4.78 10*6/uL Normal 4.2-5.4 [facility] Comment on above: Performed By: #### L 100.0100, L501.9520, L503.7505, L500.2500 ####[facility] [address] [place], [address] RDW SD 45.2 fl High 35.1-43.[address] [facility] Comment on above: Performed By: #### L 100.0100, L501.9520, L503.7505, L500.2500 ####[facility] [address] [place], [address] WBC (Bld) [#/Vol] 10.8 10*3/uL Normal 4.4-11.0 [facility] Comment on above: Performed By: #### L 100.0100, L501.9520, L503.7505, L500.2500 ####[facility] [address] [place], [address] Calcium [Mass/Vol]Ordered By : Kareen Bradshaw on 06-11-2024 Serum or plasma calcium measurement (mass/volume) 9.5 mg/dL 7.6-11.[address] [facility] Carbon dioxide, total [Moles /volume] in Central venous bloodOrdered By: Kareen Bradshaw on 06-11-2024 CO2 [Moles/Vol] 23.2 mmol/L 21.0-32.[address] [facility] Carbon dioxide, total [Moles/volume] in Central venous blood 23.2 mmol/L 21.0-32.[address] [facility] Cardiology Visit Reporton Cardiology Visit Report Normal [facility] Chloride assayOrdered By: Will Bradshaw on 06-11-2024 Chloride [Moles/Vol] 107 mmol/L 98-108 [facility] Chloride assay 107 mmol/L 98-[address] [facility] Creatinine [Mass/Vol]Ordered By: Kareen Bradshaw on 06-11-2024 Serum creatinine measurement (mass/volume) 1.20 mg/dL 0.70-1.[address] [facility] Eosinophil percentageOrdered By: Kareen Bradshaw on 06-11-2024 Eosinophils/100 WBC (Bld) 2.8 % 0-[address] [facility] Eosinophil percentage 2.8 % 0-5 [facility] Erythrocyte distribution wid th (RBC) [Ratio]Ordered By: Kareen Bradshaw on 06-11-2024 Erythrocyte distribution width ratio 14.0 % 11.6-14.[address] [facility] Erythrocyte distribution width standard deviation 45.2 fl High 35.1-43.[address] [facility] Erythrocyte distribution wid th ratioOrdered By: Kareen Bradshaw on 06-11-2024 Erythrocyte distribution width (RBC) [Ratio] 14.0 % 11.6-14.[address] [facility] Erythrocyte distribution wid th standard deviationOrdered By: Kareen Bradshaw on 06-11-2024 Erythrocyte distribution width (RBC) [Ratio] 45.2 fl High 35.1-43.[address] [facility] GFR/1.73 sq M.predicted barak g non-blacks MDRD (S/P/Bld) [Vol rate/Area]Ordered By: Kareen Bradshaw on 06-11-2024 Glomerular filtration rate (GFR) estimation/1.73 sq m using serum, plasma, or whole b 52 Low >[address] [facility] Glomerular filtration rate ( GFR) estimation/1.73 sq m using serum, plasma, or whole bOrdered By: Kareen Bradshaw on 06-11-2024 GFR/1.73 sq M.predicted among non-blacks MDRD (S/P/Bld) [Vol rate/Area] 52 mL/min/{1.73_m2} Low >[address] [facility] Glucose [Mass/Vol]Ordered By : Kareen Bradshaw on 06-11-2024 Serum glucose measurement (mass/volume) 112 mg/dL High 70-[address] [facility] Hematocrit Auto (Bld) [Volum e fraction]Ordered By: Kareen Bradshaw on 06-11-2024 Hematocrit (Bld) [Volume fraction] 42.1 % 37- [facility] Automated blood hematocrit (percentage) 42.1 % 37-[address] [facility] Hemoglobin measurementOrdere d By: Kareen Bradshaw on 06-11-2024 Hemoglobin (Bld) [Mass/Vol] 13.7 g/dL 12.0-15.[address] [facility] Hemoglobin measurement 13.7 g/dL 12.0-15.0 [place] Immature granulocytes/100 WB C Auto (Bld)Ordered By: Kareen Bradshaw on 06-11-2024 Immature granulocytes/100 WBC (Bld) 0.600 % 0.0-0.[address] [facility] Automated immature granulocyte percentage 0.600 % 0.0-0.[address] [facility] L503.7505on 06-11-2024 Natriuretic peptide B (Bld) [Mass/Vol] 65 pg/mL Normal <=[address] [facility] Comment on above: Result Comment: Hear t Failure Unlikely: < 300 pg/mLHeart Failure Likely< 50 Years: > 450 pg/mL50-75 Years: > 900 pg/mL>75 Years: > 1800 pg/mL Performed By: #### L 100.0100, L501.9520, L503.7505, L500.2500 ####[facility] [address] [place], [address] Lymphocytes Auto (Unsp spec) [#/Vol]Ordered By: Kareen Bradshaw on 06-11-2024 Absolute lymphocyte count 3.53 X10^3/uL 0.83-4.[address] [facility] Lymphocytes/100 WBC Auto (Un sp spec)Ordered By: Kareen Bradshaw on 06-11-2024 Automated lymphocyte count as percentage of total leukocytes 32.7 % 19-[address] [facility] MCV (RBC) [Entitic vol]Order ed By: Kareen Bradshaw on 06-11-2024 MCV (mean corpuscular volume) determination 88.1 fL 81-[address] [facility] MCV (mean corpuscular volume ) determinationOrdered By: Kareen Bradshaw on 06-11-2024 MCV (RBC) [Entitic vol] 88.1 fL 81-99 [facility] Mean corpuscular hemoglobin (MCH) determinationOrdered By: Kareen Bradshaw on 06-11-2024 MCH (RBC) [Entitic mass] 28.7 pg 27.0-32.[address] [facility] Mean corpuscular hemoglobin (MCH) determination 28.7 pg 27.0-32.[address] [facility] Mean corpuscular hemoglobin concentration (MCHC) determinationOrdered By: Kareen Bradshaw on 06-11-2024 Mean corpuscular hemoglobin concentration (MCHC) determination 32.5 g/dL 32-[address] [facility] Mean platelet volume determi nationOrdered By: Kareen Bradshaw on 06-11-2024 Mean platelet volume determination 9.6 fl 6.2-12.[address] [facility] Monocyte percentageOrdered B y: Kareen Bradshaw on 06-11-2024 Monocytes/100 WBC (Bld) 7.4 % 0-10 [facility] Monocyte percentage 7.4 % 0-10 [facility] Neutrophil percentageOrdered By: Kareen Bradshaw on 06-11-2024 Neutrophils/100 WBC (Bld) 56.0 % 47-[address] [facility] Neutrophil percentage 56.0 % 47-70 [facility] No Panel InformationOrdered By: Kareen Bradshaw on 06-11-2024 65 pg/mL <[address] [facility] Nucleated red blood cell per centageOrdered By: Kareen Bradshaw on 06-11-2024 Nucleated red blood cell percentage 0 % 0-[address] [facility] Pacemaker Checkon 06-11-2024 Pacemaker Check Normal [facility] Platelet countOrdered By: Will Bradshaw on 06-11-2024 Platelets (Bld) [#/Vol] 229 10*3/uL 150-[address] [facility] Platelet count 229 K/mm3 150-[address] [facility] Potassium (Unsp spec) [Mass/ Vol]Ordered By: Kareen Bradshaw on 06-11-2024 Potassium measurement (mass/volume) 4.9 mmol/L 3.3-5.[address] [facility] Potassium measurement (mass/ volume)Ordered By: Kareen Bradshaw on 06-11-2024 Potassium (Unsp spec) [Mass/Vol] 4.9 mmol/L 3.3-5.[address] [facility] RBC Auto (Bld) [#/Vol]Ordere d By: Kareen Bradshaw on 06-11-2024 RBC (Bld) [#/Vol] 4.78 10*6/uL 4.2-5.4 [facility] Automated blood erythrocyte count 4.78 M/mm3 4.2-5.[address] [facility] Serum creatinine measurement (mass/volume)Ordered By: Kareen Bradshaw on 06-11-2024 Creatinine [Mass/Vol] 1.20 mg/dL 0.70-1.20 [facility] Serum glucose measurement (m ass/volume)Ordered By: Kareen Bradshaw on 06-11-2024 Glucose [Mass/Vol] 112 mg/dL High 70-99 [facility] Serum or plasma calcium heather urement (mass/volume)Ordered By: Kareen Bradshaw on 06-11-2024 Calcium [Mass/Vol] 9.5 mg/dL 7.6-11.0 [facility] Serum or plasma urea nitroge n measurement (mass/volume)Ordered By: Kareen Bradshaw on 06-11-2024 Urea nitrogen [Mass/Vol] 22 mg/dL High 06-[address] [facility] Sodium levelOrdered By: Carina Bradshaw on 06-11-2024 Sodium [Moles/Vol] 141 mmol/L 133-145 [facility] Sodium level 141 mmol/L 133-[address] [facility] TSH DL <= 0.005 mIU/L QnOrde red By: Kareen Bradshaw on 06-11-2024 TSH Qn 3.650 uIU/mL 0.300-4.[address] [facility] Serum or plasma thyroid stimulating hormone (TSH) measurement by high sensitivity met 3.650 uIU/mL 0.300-4.[address] [facility] Thyroid Stim Hormone (TSH)on 06-11-2024 TSH 3.650 uIU/mL Normal 0.300-4.[address] [facility] Comment on above: Performed By: #### L 100.0100, L501.9526, L503.7505, L500.2500 ####[facility] [address] [place], [address] Urea nitrogen [Mass/Vol]Orde red By: Kareen Bradshaw on 06-11-2024 Serum or plasma urea nitrogen measurement (mass/volume) 22 mg/dL High - [facility] White blood cell (WBC) count Ordered By: Kareen Bradshaw on 06-11-2024 WBC (Bld) [#/Vol] 10.8 10*3/uL 4.4-11.0 [facility] White blood cell (WBC) count 10.8 K/mm3 4.4-11.[address] [facility] Emergency Department Summary on 05-21-2024 Emergency Department Summary Normal [facility] Venous Duplex Imag/Sergio Extre mon 05-21-2024 Venous Duplex Imag/Sergio Extrem Normal [facility] Urine Cultureon 05-15-2024 [facility] Mixed Gram Positive Organisms [place] Count 25,000-50,000 [facility]IX[facility] Mixed contaminants. Submit a new specimen if indicated. Normal [facility] Comment on above: Performed By: #### M 100.2200 ####[facility] [address] [place], [place], [id number] Urinalysis, Completeon 05-13 BACTERIA 2+ /hpf Normal None Seen [facility] Comment on above: Order Comment: ADOLPH CTOR TO SPECIFY Performed By: #### L 400.0001 ####[facility] [address] [place], [place], [phone] EPI,SQUAMOUS 5-10 SEEN Normal 5-[address] [facility] Comment on above: Order Comment: ADOLPH CTOR TO SPECIFY Performed By: #### L 400.0001 ####[facility] [address] [place], [address] RBC 0-5 SEEN Normal 0-[address] [facility] Comment on above: Order Comment: ADOLPH CTOR TO SPECIFY Performed By: #### L 400.0001 ####[facility] [address] [place], [address] WBC 0-5 SEEN Normal 0-[address] [facility] Comment on above: Order Comment: ADOLPH CTOR TO SPECIFY Performed By: #### L 400.0001 ####[facility] [address] [place], [address] Abdomen/Pelvis without Conto n 05-12-2024 Abdomen/Pelvis without Cont Normal [facility] Absolute lymphocyte countOrd ered By: Panda Rowe on 05-12-2024 Lymphocytes Auto (Unsp spec) [#/Vol] 4.01 10*3/uL 0.83-4.[address] [facility] Absolute neutrophil countOrd ered By: Panda Rowe on 05-12-2024 Absolute neutrophil count 6.2 X10^3/uL 2.0-7.[address] [facility] Anion gap [Moles/Vol]Ordered By: Panda Rowe on 05-12-2024 Anion gap in Serum or Plasma 9 - [facility] Anion gap in Serum or Plasma Ordered By: Panda Rowe on 05-12-2024 Anion gap [Moles/Vol] 9 mmol/L - [facility] Automated lymphocyte count a s percentage of total leukocytesOrdered By: Panda Rowe on 05-12-2024 Lymphocytes/100 WBC Auto (Unsp spec) 35.0 % 19- [facility] BUN/creatinine ratioOrdered By: Panda Rowe on 05-12-2024 Urea nitrogen/Creatinine [Mass ratio] 11.5 mg/mg - [facility] BUN/creatinine ratio 11.5 RATIO 12-28 [facility] Bacteria LM.HPF (Urine sed) [#/Area]Ordered By: Panda Rowe on 05-12-2024 Urine sediment bacteria count by microscopy (number/high power field) 2+ /hpf None Seen [facility] Basic Metabolic Profile (BMP )on 05-12-2024 BUN/CRE 11.5 RATIO Normal - [facility] Comment on above: Performed By: #### L 100.0100, L500.2500 ####[facility] [address] [place], [address] Calcium [Mass/Vol] 8.8 mg/dL Normal 7.6-11.0 [facility] Comment on above: Performed By: #### L 100.0100, L500.2500 ####[facility] [address] [place], [address] Chloride [Moles/Vol] 107 mmol/L Normal 98-108 [facility] Comment on above: Performed By: #### L 100.0100, L500.2500 ####[facility] [address] [place], [address] CO2 [Moles/Vol] 25.8 mmol/L Normal 21.0-32.[address] [facility] Comment on above: Performed By: #### L 100.0100, L500.2500 ####[facility] [address] [place], [address] Creatinine [Mass/Vol] 1.59 mg/dL High 0.70-1.20 [facility] Comment on above: Performed By: #### L 100.0100, L500.2500 ####[facility] [address] [place], [address] ECRCL 44.38 ml/min Low 50-[address] [facility] Comment on above: Performed By: #### L 100.0100, L500.2500 ####[facility] [address] [place], [address] GAP 9 Normal 5-[address] [facility] Comment on above: Performed By: #### L 100.0100, L500.2500 ####[facility] [address] [place], [address] GFR/1.73 sq M.predicted among non-blacks MDRD (S/P/Bld) [Vol rate/Area] 37 mL/min/{1.73_m2} Low >[address] [facility] Comment on above: Result Comment: mL/m in/1.73m2 CKD-EPI Creatinine Equation (2020) Performed By: #### L 100.0100, L500.2500 ####[facility] [address] [place], [address] Glucose [Mass/Vol] 103 mg/dL High 70-99 [facility] Comment on above: Performed By: #### L 100.0100, L500.2500 ####[facility] [address] [place], [address] Potassium [Moles/Vol] 4.1 mmol/L Normal 3.3-5.1 [facility] Comment on above: Performed By: #### L 100.0100, L500.2500 ####[facility] [address] [place], [address] Sodium [Moles/Vol] 141 mmol/L Normal 133-145 [facility] Comment on above: Performed By: #### L 100.0100, L500.2500 ####[facility] [address] [place], [address] Urea nitrogen [Mass/Vol] 18 mg/dL Normal 4-[address] [facility] Comment on above: Performed By: #### L 100.0100, L500.2500 ####[facility] [address] [place], [address] Basophil percentageOrdered B y: Panda Rowe on 05-12-2024 Basophils/100 WBC (Bld) 0.4 % 0-1 [facility] Basophil percentage 0.4 % 0-1 [facility] Bilirubin Test strip Ql (U)O rdered By: Panda Rowe on 05-12-2024 Bilirubin Ql (U) Negative Negative [facility] CBC W/Diff, Automatedon Absolute Lymph 4.01 X10 3/uL Normal 0.83-4.[address] [facility] Comment on above: Performed By: #### L 100.0100, L500.2500 ####[facility] [address] [place], [address] Absolute Neut 6.2 X10 3/uL Normal 2.0-7.[address] [facility] Comment on above: Performed By: #### L 100.0100, L500.2500 ####[facility] [address] [place], [address] Basophils/100 WBC (Bld) 0.4 % Normal 0-1 [facility] Comment on above: Performed By: #### L 100.0100, L500.2500 ####[facility] [address] [place], [address] Eosinophils/100 WBC (Bld) 1.0 % Normal 0-[address] [facility] Comment on above: Performed By: #### L 100.0100, L500.2500 ####[facility] [address] [place], [address] Erythrocyte distribution width (RBC) [Ratio] 14.8 % High 11.6-14.[address] [facility] Comment on above: Performed By: #### L 100.0100, L500.2500 ####[facility] [address] [place], [address] Hematocrit (Bld) [Volume fraction] 37.9 % Normal 37-[address] [facility] Comment on above: Performed By: #### L 100.0100, L500.2500 ####[facility] [address] [place], [address] Hemoglobin (Bld) [Mass/Vol] 12.1 g/dL Normal 12.0-15.[address] [facility] Comment on above: Performed By: #### L 100.0100, L500.2500 ####[facility] [address] [place], [address] IG% 0.700 Normal 0.0-0.[address] [facility] Comment on above: Result Comment: IG% - Immature Granulocytes (promyelocytes, myelocytes andmetamyelocytes) > 1% indicates that a LEFT SHIFT is Present. Performed By: #### L 100.0100, L500.2500 ####[facility] [address] [place], [address] Lymphocytes/100 WBC (Bld) 35.0 % Normal 19-[address] [facility] Comment on above: Performed By: #### L 100.0100, L500.2500 ####[facility] [address] [place], [address] MCH (RBC) [Entitic mass] 29.0 pg Normal 27.0-32.[address] [facility] Comment on above: Performed By: #### L 100.0100, L500.2500 ####[facility] [address] [place], [address] MCHC (RBC) [Mass/Vol] 31.9 g/dL Low 32-36 [facility] Comment on above: Performed By: #### L 100.0100, L500.2500 ####[facility] [address] [place], [address] MCV (RBC) [Entitic vol] 90.9 fL Normal 81-99 [facility] Comment on above: Performed By: #### L 100.0100, L500.2500 ####[facility] [address] [place], [address] Monocytes/100 WBC (Bld) 9.2 % Normal 0-10 [facility] Comment on above: Performed By: #### L 100.0100, L500.2500 ####[facility] [address] [place], [address] Neutrophils/100 WBC (Bld) 53.7 % Normal 47-[address] [facility] Comment on above: Performed By: #### L 100.0100, L500.2500 ####[facility] [address] [place], [address] Nucleated RBC (Bld) [#/Vol] 0 10*3/uL Normal 0-[address] [facility] Comment on above: Performed By: #### L 100.0100, L500.2500 ####[facility] [address] [place], [address] Platelet mean volume (Bld) [Entitic vol] 9.5 fL Normal 6.2-12.[address] [facility] Comment on above: Performed By: #### L 100.0100, L500.2500 ####[facility] [address] [place], [address] Platelets (Bld) [#/Vol] 233 10*3/uL Normal 150-[address] [facility] Comment on above: Performed By: #### L 100.0100, L500.2500 ####[facility] [address] [place], [address] RBC (Bld) [#/Vol] 4.17 10*6/uL Low 4.2-5.4 [facility] Comment on above: Performed By: #### L 100.0100, L500.2500 ####[facility] [address] [place], [address] RDW SD 49.1 fl High 35.1-43.[address] [facility] Comment on above: Performed By: #### L 100.0100, L500.2500 ####[facility] [address] [place], [address] WBC (Bld) [#/Vol] 11.5 10*3/uL High 4.4-11.0 [facility] Comment on above: Performed By: #### L 100.0100, L500.2500 ####[facility] [address] [place], [address] Calcium [Mass/Vol]Ordered By : Panda Rowe on 05-12-2024 Serum or plasma calcium measurement (mass/volume) 8.8 mg/dL 7.6-11.[address] [facility] Carbon dioxide, total [Moles /volume] in Central venous bloodOrdered By: Panda Rowe on 05-12-2024 CO2 [Moles/Vol] 25.8 mmol/L 21.0-32.[address] [facility] Carbon dioxide, total [Moles/volume] in Central venous blood 25.8 mmol/L 21.0-32.[address] [facility] Chloride assayOrdered By: Dora Rowe on 05-12-2024 Chloride [Moles/Vol] 107 mmol/L 98-108 [facility] Chloride assay 107 mmol/L 98-[address] [facility] Clarity (U)Ordered By: Galina Rowe on 05-12-2024 Urine clarity Clear Clear [facility] Color (U)Ordered By: Panda Rowe on 05-12-2024 Urine color determination Yellow Yellow [facility] Creatinine [Mass/Vol]Ordered By: Panda Rowe on 05-12-2024 Serum creatinine measurement (mass/volume) 1.59 mg/dL High 0.70-1.[address] [facility] Emergency Department Summary on 05-12-2024 Emergency Department Summary Normal [facility] Eosinophil percentageOrdered By: Panda Rowe on 05-12-2024 Eosinophils/100 WBC (Bld) 1.0 % 0-[address] [facility] Eosinophil percentage 1.0 % 0-5 [facility] Epithelial cells.squamous LM Ql (Urine sed)Ordered By: Panda Rowe on 05-12-2024 Squamous epithelial cells detection in urine sediment by light microscopy 5-10 SEEN /hpf 5-[address] [facility] Erythrocyte distribution wid th (RBC) [Ratio]Ordered By: Panda Rowe on 05-12-2024 Erythrocyte distribution width ratio 14.8 % High 11.6-14.[address] [facility] Erythrocyte distribution wid th ratioOrdered By: Panda Rowe on 05-12-2024 Erythrocyte distribution width (RBC) [Ratio] 14.8 % High 11.6-14.[address] [facility] Erythrocyte distribution wid th standard deviationOrdered By: Panda Rowe on 05-12-2024 Erythrocyte distribution width (RBC) [Ratio] 49.1 fl High 35.1-43.[address] [facility] Erythrocyte distribution width standard deviation 49.1 fl High 35.1-43.[address] [facility] Estimation of creatinine jennifer aranceOrdered By: Panda Rowe on 05-12-2024 Estimation of creatinine clearance 44.38 ml/min Low 50-[address] [facility] GFR/1.73 sq M.predicted barak g non-blacks MDRD (S/P/Bld) [Vol rate/Area]Ordered By: Panda Rowe on 05-12-2024 Glomerular filtration rate (GFR) estimation/1.73 sq m using serum, plasma, or whole b 37 Low >[address] [facility] Glomerular filtration rate ( GFR) estimation/1.73 sq m using serum, plasma, or whole bOrdered By: Panda Rowe on 05-12-2024 GFR/1.73 sq M.predicted among non-blacks MDRD (S/P/Bld) [Vol rate/Area] 37 mL/min/{1.73_m2} Low >[address] [facility] Glucose [Mass/Vol]Ordered By : Panda Rowe on 05-12-2024 Serum glucose measurement (mass/volume) 103 mg/dL High 70-[address] [facility] Hematocrit Auto (Bld) [Volum e fraction]Ordered By: Panda Rowe on 05-12-2024 Hematocrit (Bld) [Volume fraction] 37.9 % 37-[address] [facility] Automated blood hematocrit (percentage) 37.9 % 37-[address] [facility] Hemoglobin measurementOrdere d By: Panda Rowe on 05-12-2024 Hemoglobin (Bld) [Mass/Vol] 12.1 g/dL 12.0-15.[address] [facility] Hemoglobin measurement 12.1 g/dL 12.0-15.0 [place] Immature granulocytes/100 WB C Auto (Bld)Ordered By: Panda Rowe on 05-12-2024 Immature granulocytes/100 WBC (Bld) 0.700 % 0.0-0.[address] [facility] Automated immature granulocyte percentage 0.700 % 0.0-0.[address] [facility] Ketones Test strip Ql (U)Ord ered By: Panda Rowe on 05-12-2024 Ketones Ql (U) Negative Negative [facility] Leukocyte esterase Test stri p Ql (U)Ordered By: Panda Rowe on 05-12-2024 Urine leukocyte esterase detection by dipstick 25 /ul High Negative [facility] Lymphocytes Auto (Unsp spec) [#/Vol]Ordered By: Panda Rowe on 05-12-2024 Absolute lymphocyte count 4.01 X10^3/uL 0.83-4.[address] [facility] Lymphocytes/100 WBC Auto (Un sp spec)Ordered By: Panda Rowe on 05-12-2024 Automated lymphocyte count as percentage of total leukocytes 35.0 % 19-[address] [facility] MCV (RBC) [Entitic vol]Order ed By: Panda Rowe on 05-12-2024 MCV (mean corpuscular volume) determination 90.9 fL 81-[address] [facility] MCV (mean corpuscular volume ) determinationOrdered By: Panda Rowe on 05-12-2024 MCV (RBC) [Entitic vol] 90.9 fL 81-99 [facility] Mean corpuscular hemoglobin (MCH) determinationOrdered By: Panda Rowe on 05-12-2024 MCH (RBC) [Entitic mass] 29.0 pg 27.0-32.[address] [facility] Mean corpuscular hemoglobin (MCH) determination 29.0 pg 27.0-32.[address] [facility] Mean corpuscular hemoglobin concentration (MCHC) determinationOrdered By: Panda Rowe on 05-12-2024 Mean corpuscular hemoglobin concentration (MCHC) determination 31.9 g/dL Low 32-[address] [facility] Mean platelet volume determi nationOrdered By: Panda Rowe on 05-12-2024 Mean platelet volume determination 9.5 fl 6.2-12.[address] [facility] Monocyte percentageOrdered B y: Panda Rowe on 05-12-2024 Monocytes/100 WBC (Bld) 9.2 % 0-10 [facility]ocyte [facility] 9.2 % 0-10 [facility] Mucus LM Ql (Urine sed)Order ed By: Panda Rowe on 05-12-2024 Mucus Ql (Urine sed) 0 SEEN /hpf [facility] Mucus detection in urine sediment by light microscopy 0 SEEN /hpf [facility] Neutrophil percentageOrdered By: Panda Rowe on 05-12-2024 Neutrophils/100 WBC (Bld) 53.7 % 47-[address] [facility] Neutrophil percentage 53.7 % 47-70 [facility] Nitrite Test strip Ql (U)Ord ered By: Panda Rowe on 05-12-2024 Nitrite Ql (U) Negative Negative [facility] Nucleated red blood cell per centageOrdered By: Panda Rowe on 05-12-2024 Nucleated red blood cell percentage 0 % 0-[address] [facility] Platelet countOrdered By: Dora Rowe on 05-12-2024 Platelets (Bld) [#/Vol] 233 10*3/uL 150-[address] [facility] Platelet count 233 K/mm3 150-[address] [facility] Potassium (Unsp spec) [Mass/ Vol]Ordered By: Panda Rowe on 05-12-2024 Potassium measurement (mass/volume) 4.1 mmol/L 3.3-5.[address] [facility] Potassium measurement (mass/ volume)Ordered By: Panda Rowe on 05-12-2024 Potassium (Unsp spec) [Mass/Vol] 4.1 mmol/L 3.3-5.[address] [facility] Protein Test strip Ql (U)Ord ered By: Panda Rowe on 05-12-2024 Protein Ql (U) Negative Negative [facility] RBC Auto (Bld) [#/Vol]Ordere d By: Panda Rowe on 05-12-2024 RBC (Bld) [#/Vol] 4.17 10*6/uL Low 4.2-5.4 [facility] Automated blood erythrocyte count 4.17 M/mm3 Low 4.2-5.[address] [facility] Serum creatinine measurement (mass/volume)Ordered By: Panda Rowe on 05-12-2024 Creatinine [Mass/Vol] 1.59 mg/dL High 0.70-1.20 [facility] Serum glucose measurement (m ass/volume)Ordered By: Panda Rowe on 05-12-2024 Glucose [Mass/Vol] 103 mg/dL High 70-99 [facility] Serum or plasma calcium heather urement (mass/volume)Ordered By: Panda Rowe on 05-12-2024 Calcium [Mass/Vol] 8.8 mg/dL 7.6-11.0 [facility] Serum or plasma urea nitroge n measurement (mass/volume)Ordered By: Panda Rowe on 05-12-2024 Urea nitrogen [Mass/Vol] 18 mg/dL 4-[address] [facility] Sodium levelOrdered By: Bob Rowe on 05-12-2024 Sodium [Moles/Vol] 141 mmol/L 133-145 [facility] Sodium level 141 mmol/L 133-[address] [facility] Specific gravity (U) [Rel de nsity]Ordered By: Panda Rowe on 05-12-2024 Urine specific gravity measurement 1.010 1.002-1.[address] [facility] Squamous epithelial cells de tection in urine sediment by light microscopyOrdered By: Panda Rowe on 05-12-2024 Epithelial cells.squamous LM Ql (Urine sed) 5-10 SEEN /hpf 5-[address] [facility] Urea nitrogen [Mass/Vol]Orde red By: Panda Rowe on 05-12-2024 Serum or plasma urea nitrogen measurement (mass/volume) 18 mg/dL 4- [facility] Urinalysis, Completeon 05-12 BILIRUBIN URINE Negative Normal Negative [facility] Comment on above: Order Comment: ADOLPH CTOR TO SPECIFY Performed By: #### L 400.0001 ####[facility] [address] [place], [address] Clarity (U) Clear Normal Clear [facility] Comment on above: Order Comment: ADOLPH CTOR TO SPECIFY Performed By: #### L 400.0001 ####[facility] [address] [place], [address] Color (U) Yellow Normal Yellow [facility] Comment on above: Order Comment: ADOLPH CTOR TO SPECIFY Performed By: #### L 400.0001 ####[facility] [address] [place], [address] GLUCOSE, UR Normal Normal Normal [facility] Comment on above: Order Comment: ADOLPH CTOR TO SPECIFY Performed By: #### L 400.0001 ####[facility] [address] [place], [address] KETONE UR Negative Normal Negative [facility] Comment on above: Order Comment: ADOLPH CTOR TO SPECIFY Performed By: #### L 400.0001 ####[facility] [address] [place], [address] LEUK ESTERASE 25 /ul Abnormal Negative [facility] Comment on above: Order Comment: ADOLPH CTOR TO SPECIFY Performed By: #### L 400.0001 ####[facility] [address] [place], [address] Nitrite Ql (U) Negative Normal Negative [facility] Comment on above: Order Comment: ADOLPH CTOR TO SPECIFY Performed By: #### L 400.0001 ####[facility] [address] [place], [address] OCCULT BLOOD-UR Negative Normal Negative [facility] Comment on above: Order Comment: ADOLPH CTOR TO SPECIFY Performed By: #### L 400.0001 ####[facility] [address] [place], [address] pH UR 6.0 Normal 5.0 - 8.[address] [facility] Comment on above: Order Comment: ADOLPH CTOR TO SPECIFY Performed By: #### L 400.0001 ####[facility] [address] [place], [address] PROT DIPSTX Negative Normal Negative [facility] Comment on above: Order Comment: ADOLPH CTOR TO SPECIFY Performed By: #### L 400.0001 ####[facility] [address] [place], [address] SP.GR. DIPSTX 1.010 Normal 1.002-1.[address] [facility] Comment on above: Order Comment: ADOLPH CTOR TO SPECIFY Performed By: #### L 400.0001 ####[facility] [address] [place], [address] UROBILI Normal Normal Normal [facility] Comment on above: Order Comment: ADOLPH CTOR TO SPECIFY Performed By: #### L 400.0001 ####[facility] [address] [place], [address] Mucus Ql (Urine sed) 0 SEEN Normal [facility] Comment on above: Order Comment: COLLE CTOR TO SPECIFY Performed By: #### L 400.0001 ####[facility] [address] [place], [address] Urine clarityOrdered By: Leodan Rowe on 05-12-2024 Clarity (U) Clear Clear [facility] Urine color determinationOrd ered By: Panda Rowe on 05-12-2024 Color (U) Yellow Yellow [facility] Urine cultureOrdered By: Leodan Rowe on 05-12-2024 Bacteria identified Cx Nom (U) Positive Abnormal [facility] Urine culture Positive Abnormal [facility] Urine glucose detectionOrder ed By: Panda Rowe on 05-12-2024 Glucose Ql (U) Normal mg/dl Normal [facility] Urine glucose detection Normal mg/dl Normal [facility] Urine leukocyte esterase det ection by dipstickOrdered By: Panda Rowe on 05-12-2024 Leukocyte esterase Test strip Ql (U) 25 /ul High Negative [facility] Urine pHOrdered By: Panda mcgrath on 05-12-2024 pH (U) 6.0 [pH] 5.0 - 8.[address] [facility] Urine sediment bacteria coun t by microscopy (number/high power field)Ordered By: Panda Rowe on 05-12-2024 Bacteria LM.HPF (Urine sed) [#/Area] 2 /[HPF] None Seen [facility] Urine specific gravity measu rementOrdered By: Panda Rowe on 05-12-2024 Specific gravity (U) [Rel density] 1.010 1.002-1.[address] [facility] Urine total bilirubin detect ion by test stripOrdered By: Panda Rowe on 05-12-2024 Urine total bilirubin detection by test strip Negative Negative [facility] Urine urobilinogen measureme ntOrdered By: Panda Rowe on 05-12-2024 Urobilinogen Ql (U) Normal mg/dl Normal [facility] White blood cell (WBC) count Ordered By: Panda Rowe on 05-12-2024 WBC (Bld) [#/Vol] 11.5 10*3/uL High 4.4-11.0 [facility] White blood cell (WBC) count 11.5 K/mm3 High 4.4-11.[address] [facility] White blood cell countOrdere d By: Panda Rowe on 05-12-2024 White blood cell count 0-5 SEEN /hpf 0-[address] [facility] White blood cell count 0-5 SEEN /hpf 0-[address] [facility] pH (U)Ordered By: Mamadou on 05-12-2024 Urine pH 6.0 5.0 - 8.[address] [facility] Absolute lymphocyte countOrd ered By: Jcarlos Garcia on 05-04-2024 Lymphocytes Auto (Unsp spec) [#/Vol] 3.17 10*3/uL 0.83-4.[address] [facility] Absolute neutrophil countOrd ered By: Jcarlos Garcia on 05-04-2024 Absolute neutrophil count 5.2 X10^3/uL 2.0-7.[address] [facility] Automated lymphocyte count a s percentage of total leukocytesOrdered By: Jcarlos Garcia on 05-04-2024 Lymphocytes/100 WBC Auto (Unsp spec) 33.1 % 19-[address] [facility] Basic Metabolic Profile (BMP )on 05-04-2024 BUN/CRE 13.6 RATIO Normal 10-[address] [facility] Comment on above: Performed By: #### L 500.2500, L100.0100 ####[facility] [address] [facility] [address] [place],Total 8.3 mg/dL Low 8.5-10.[address] [facility] Comment on above: Performed By: #### L 500.2500, L100.0100 ####[facility] [address] [place], [address] Chloride [Moles/Vol] 118 mmol/L High 98-107 [facility] Comment on above: Performed By: #### L 500.2500, L100.0100 ####[facility] [address] [place], [address] CO2 [Moles/Vol] 23.0 mmol/L Normal 21.0-32.[address] [facility] Comment on above: Performed By: #### L 500.2500, L100.0100 ####[facility] [address] [place], [address] Creatinine [Mass/Vol] 1.54 mg/dL High 0.55-1.02 [facility] Comment on above: Result Comment: The validity of the calculated GFR GFRAA in patients over70 years has not been determined. Clinical correlation isessential. Performed By: #### L 500.2500, L100.0100 ####[facility] [address] [place], [address] ECRCL 44.34 ml/min Normal [facility] Comment on above: Performed By: #### L 500.2500, L100.0100 ####[facility] [address] [place], [address] EST GFR - AA 44 mL/min Low >[address] [facility] Comment on above: Result Comment: Afri can Nauruan GFR Calc Performed By: #### L 500.2500, L100.0100 ####[facility] [address] [place], [address] GAP 4 Low 5-[address] [facility] Comment on above: Performed By: #### L 500.2500, L100.0100 ####[facility] [address] [place], [address] GFR/1.73 sq M.predicted among non-blacks MDRD (S/P/Bld) [Vol rate/Area] 37 mL/min/{1.73_m2} Low >[address] [facility] Comment on above: Result Comment: Non- GFR Calc Performed By: #### L 500.2500, L100.0100 ####[facility] [address] [place], [address] Glucose [Mass/Vol] 143 mg/dL High 74-106 [facility] Comment on above: Result Comment: Fast ing Glucose result greater than or equal to 126 mg/dLsuggests DIABETES MELLITUS per A.D.A. criteria. Performed By: #### L 500.2500, L100.0100 ####[facility] [address] [place], [address] Potassium [Moles/Vol] 5.4 mmol/L High 3.5-5.1 [facility] Comment on above: Performed By: #### L 500.2500, L100.0100 ####[facility] [address] [place], [address] Sodium [Moles/Vol] 145 mmol/L Normal 136-145 [facility] Comment on above: Performed By: #### L 500.2500, L100.0100 ####[facility] [address] [place], [address] Urea nitrogen [Mass/Vol] 21 mg/dL High 7-[address] [facility] Comment on above: Performed By: #### L 500.2500, L100.0100 ####[facility] [address] [place], [address] Basophil percentageOrdered B y: Jcarlos Garcia on 05-04-2024 Basophils/100 WBC (Bld) 0.2 % 0-1 [facility] Basophil percentage 0.2 % 0-5 [facility] Blood urea nitrogen (BUN)/cr eatinine ratioOrdered By: Jcarlos Garcia on 05-04-2024 Blood urea nitrogen (BUN)/creatinine ratio 13.6 RATIO 10-[address] [facility] CBC W/Diff, Automatedon - Absolute Lymph 3.17 X10 3/uL Normal 0.83-4.[address] [facility] Comment on above: Performed By: #### L 500.2500, L100.0100 ####[facility] [address] [place], [address] Absolute Neut 5.2 X10 3/uL Normal 2.0-7.[address] [facility] Comment on above: Performed By: #### L 500.2500, L100.0100 ####[facility] [address] [place], [address] Basophils/100 WBC (Bld) 0.2 % Normal 0-1 [facility] Comment on above: Performed By: #### L 500.2500, L100.0100 ####[facility] [address] [place], [address] Eosinophils/100 WBC (Bld) 1.8 % Normal 0-[address] [facility] Comment on above: Performed By: #### L 500.2500, L100.0100 ####[facility] [address] [place], [address] Erythrocyte distribution width (RBC) [Ratio] 15.4 % High 11.6-14.[address] [facility] Comment on above: Performed By: #### L 500.2500, L100.0100 ####[facility] [address] [place], [address] Hematocrit (Bld) [Volume fraction] 39.4 % Normal 37-[address] [facility] Comment on above: Performed By: #### L 500.2500, L100.0100 ####[facility] [address] [place], [address] Hemoglobin (Bld) [Mass/Vol] 12.1 g/dL Normal 12.0-15.[address] [facility] Comment on above: Performed By: #### L 500.2500, L100.0100 ####[facility] [address] [place], [address] IG% 1.100 High 0.0-0.[address] [facility] Comment on above: Result Comment: IG% - Immature Granulocytes (promyelocytes, myelocytes andmetamyelocytes) > 1% indicates that a LEFT SHIFT is Present. Performed By: #### L 500.2500, L100.0100 ####[facility] [address] [place], [address] Lymphocytes/100 WBC (Bld) 33.1 % Normal 19-[address] [facility] Comment on above: Performed By: #### L 500.2500, L100.0100 ####[facility] [address] [place], [address] MCH (RBC) [Entitic mass] 28.3 pg Normal 27.0-32.[address] [facility] Comment on above: Performed By: #### L 500.2500, L100.0100 ####[facility] [address] [place], [address] MCHC (RBC) [Mass/Vol] 30.7 g/dL Low 32-36 [facility] Comment on above: Performed By: #### L 500.2500, L100.0100 ####[facility] [address] [place], [address] MCV (RBC) [Entitic vol] 92.3 fL Normal 81-99 [facility] Comment on above: Performed By: #### L 500.2500, L100.0100 ####[facility] [address] [place], [address] Monocytes/100 WBC (Bld) 9.3 % Normal 0-10 [facility] Comment on above: Performed By: #### L 500.2500, L100.0100 ####[facility] [address] [place], [address] Neutrophils/100 WBC (Bld) 54.5 % Normal 47-[address] [facility] Comment on above: Performed By: #### L 500.2500, L100.0100 ####[facility] [address] [place], [address] Nucleated RBC (Bld) [#/Vol] 0.2 10*3/uL Normal 0-[address] [facility] Comment on above: Performed By: #### L 500.2500, L100.0100 ####[facility] [facility] [address] [place], [address] Platelet mean volume (Bld) [Entitic vol] 9.7 fL Normal 6.2-12.[address] [facility] Comment on above: Performed By: #### L 500.2500, L100.0100 ####[facility] [address] [place], [address] Platelets (Bld) [#/Vol] 298 10*3/uL Normal 150-[address] [facility] Comment on above: Performed By: #### L 500.2500, L100.0100 ####[facility] [address] [place], [address] RBC (Bld) [#/Vol] 4.27 10*6/uL Normal 4.2-5.4 [facility] Comment on above: Performed By: #### L 500.2500, L100.0100 ####[facility] [address] [place], [address] RDW SD 52.2 fl High 35.1-43.[address] [facility] Comment on above: Performed By: #### L 500.2500, L100.0100 ####[facility] [address] [place], [address] WBC (Bld) [#/Vol] 9.6 10*3/uL Normal 4.4-11.0 [facility] Comment on above: Performed By: #### L 500.2500, L100.0100 ####[facility] [address] [place], [address] Calcium [Mass/Vol]Ordered By : Jcarlos Garcia on 05-04-2024 Serum or plasma calcium measurement (mass/volume) 8.3 mg/dL Low 8.5-10.[address] [facility] Carbon dioxide measurementOr dered By: Jcarlos Garcia on 05-04-2024 CO2 [Moles/Vol] 23.0 mmol/L 21.0-32.[address] [facility] Carbon dioxide measurement 23.0 mmol/L 21.0-32.[address] [facility] Chloride measurementOrdered By: Jcarlos Garcia on 05-04-2024 Chloride [Moles/Vol] 118 mmol/L High 98-107 [facility] Chloride measurement 118 mmol/L High 98-107 [facility] Creatinine [Mass/Vol]Ordered By: Jcarlos Garcia on 05-04-2024 Serum or plasma creatinine measurement (mass/volume) 1.54 mg/dL High 0.55-1.[address] [facility] Emergency Department Summary on 05-04-2024 Emergency Department Summary Normal [facility] Eosinophil percentageOrdered By: Jcarlos Garcia on 05-04-2024 Eosinophils/100 WBC (Bld) 1.8 % 0-[address] [facility] Eosinophil percentage 1.8 % 0-5 [facility] Erythrocyte distribution wid th (RBC) [Ratio]Ordered By: Jcarlos Garcia on 05-04-2024 Erythrocyte distribution width ratio 15.4 % High 11.6-14.[address] [facility] Erythrocyte distribution wid th ratioOrdered By: Jcarlos Garcia on 05-04-2024 Erythrocyte distribution width (RBC) [Ratio] 15.4 % High 11.6-14.[address] [facility] Erythrocyte distribution wid th standard deviationOrdered By: Jcarlos Garcia on 05-04-2024 Erythrocyte distribution width (RBC) [Ratio] 52.2 fl High 35.1-43.[address] [facility] Erythrocyte distribution width standard deviation 52.2 fl High 35.1-43.[address] [facility] Estimated glomerular filtrat ion rate (GFR) AmericanOrdered By: Jcarlos Garcia on 05-04-2024 Estimated glomerular filtration rate (GFR) 44 mL/min Low >[address] [facility] Estimation of creatinine jennifer aranceOrdered By: Jcarlos Garcia on 05-04-2024 Estimation of creatinine clearance 44.34 ml/min [facility] Glomerular filtration rate ( GFR) estimationOrdered By: Jcarlos Garcia on 05-04-2024 GFR/1.73 sq M.predicted among non-blacks MDRD (S/P/Bld) [Vol rate/Area] 37 mL/min/{1.73_m2} Low >[address] [facility] Glomerular filtration rate (GFR) estimation 37 mL/min Low >[address] [facility] Glucose measurementOrdered B y: Jcarlos Garcia on 05-04-2024 Glucose [Mass/Vol] 143 mg/dL High 74-106 [facility] Glucose measurement 143 mg/dL High 74-106 [facility] Hematocrit Auto (Bld) [Volum e fraction]Ordered By: Jcarlos Garcia on 05-04-2024 Hematocrit (Bld) [Volume fraction] 39.4 % 37-[address] [facility] Automated blood hematocrit (percentage) 39.4 % 37-[address] [facility] Hemoglobin measurementOrdere d By: Jcarlos Garcia on 05-04-2024 Hemoglobin (Bld) [Mass/Vol] 12.1 g/dL 12.0-15.[address] [facility] Hemoglobin measurement 12.1 g/dL 12.0-15.0 [place] Immature granulocytes/100 WB C Auto (Bld)Ordered By: Jcarlos Garcia on 05-04-2024 Immature granulocytes/100 WBC (Bld) 1.100 % High 0.0-0.[address] [facility] Automated immature granulocyte percentage 1.100 % High 0.0-0.[address] [facility] International normalized rat io (INR) calculationOrdered By: Jcarlos Garcia on 05-04-2024 International normalized ratio (INR) calculation 1.[address] [facility] Lymphocytes Auto (Unsp spec) [#/Vol]Ordered By: Jcarlos Garcia on 05-04-2024 Absolute lymphocyte count 3.17 X10^3/uL 0.83-4.[address] [facility] Lymphocytes/100 WBC Auto (Un sp spec)Ordered By: Jcarlos Garcia on 05-04-2024 Automated lymphocyte count as percentage of total leukocytes 33.1 % 19-[address] [facility] MCV (RBC) [Entitic vol]Order ed By: Jcarlos Garcia on 05-04-2024 MCV (mean corpuscular volume) determination 92.3 fL 81-[address] [facility] MCV (mean corpuscular volume ) determinationOrdered By: Jcarlos Garcia on 05-04-2024 MCV (RBC) [Entitic vol] 92.3 fL 81-99 [facility] Mean corpuscular hemoglobin (MCH) determinationOrdered By: Jcarlos Garcia on 05-04-2024 MCH (RBC) [Entitic mass] 28.3 pg 27.0-32.[address] [facility] Mean corpuscular hemoglobin (MCH) determination 28.3 pg 27.0-32.[address] [facility] Mean corpuscular hemoglobin concentration (MCHC) determinationOrdered By: Jcarlos Garcia on 05-04-2024 Mean corpuscular hemoglobin concentration (MCHC) determination 30.7 g/dL Low 32-[address] [facility] Mean platelet volume determi nationOrdered By: Jcarlos Garcia on 05-04-2024 Mean platelet volume determination 9.7 fl 6.2-12.[address] [facility] Monocyte percentageOrdered B y: Jcarlos Garcia on 05-04-2024 Monocytes/100 WBC (Bld) 9.3 % 0-10 [facility] Monocyte percentage 9.3 % 0-10 [facility] Neutrophil percentageOrdered By: Jcarlos Garcia on 05-04-2024 Neutrophils/100 WBC (Bld) 54.5 % 47-[address] [facility] Neutrophil percentage 54.5 % 47-70 [facility] Platelet countOrdered By: Joe Garcia on 05-04-2024 Platelets (Bld) [#/Vol] 298 10*3/uL 150-[address] [facility] Platelet count 298 K/mm3 150-[address] [facility] Potassium measurementOrdered By: Jcarlos Garcia on 05-04-2024 Potassium [Moles/Vol] 5.4 mmol/L High 3.5-5.1 [facility] Potassium measurement 5.4 mmol/L High 3.5-5.1 [facility] Prothrombin Time w/INRon INR Coag (PPP) [Relative time] 1.0 {INR} Normal [facility] Comment on above: Performed By: #### L 702.6626 ####[facility] [address] [place], [address] PT Coag (PPP) [Time] 13.3 s Normal 11.7-14.9 [facility] Comment on above: Performed By: #### L [id number] ####[facility] [address] [place], [address] Prothrombin timeOrdered By: Jcarlos Garcia on 05-04-2024 PT Coag (PPP) [Time] 13.3 s 11.7-14.9 [facility] Prothrombin time 13.3 SECONDS 11.7-14.9 [facility] RBC Auto (Bld) [#/Vol]Ordere d By: Jcarlos Garcia on 05-04-2024 RBC (Bld) [#/Vol] 4.27 10*6/uL 4.2-5.4 [facility] Automated blood erythrocyte count 4.27 M/mm3 4.2-5.[address] [facility] Serum anion gap measurementO rdered By: Jcarlos Garcia on 05-04-2024 Serum anion gap measurement 4 Low 5-[address] [facility] Serum or plasma calcium heather urement (mass/volume)Ordered By: Jcarlos Garcia on 05-04-2024 Calcium [Mass/Vol] 8.3 mg/dL Low 8.5-10.1 [facility] Serum or plasma creatinine m easurement (mass/volume)Ordered By: Jcarlos Garcia on 05-04-2024 Creatinine [Mass/Vol] 1.54 mg/dL High 0.55-1.02 [facility] Serum or plasma urea nitroge n measurement (mass/volume)Ordered By: Jcarlos Garcia on 05-04-2024 Urea nitrogen [Mass/Vol] 21 mg/dL High 09-[address] [facility] Sodium levelOrdered By: Jcarlos Garcia on 05-04-2024 Sodium [Moles/Vol] 145 mmol/L 136-145 [facility] Sodium level 145 mmol/L 136-[address] [facility] Urea nitrogen [Mass/Vol]Orde red By: Jcarlos Garcia on 05-04-2024 Serum or plasma urea nitrogen measurement (mass/volume) 21 mg/dL High - [facility] Venous Duplex US, Unilateral on 05-04-2024 Venous Duplex US, Unilateral Normal [facility] White blood cell (WBC) count Ordered By: Jcarlos Garcia on 05-04-2024 WBC (Bld) [#/Vol] 9.6 10*3/uL 4.4-11.0 [facility] White blood cell (WBC) count 9.6 K/mm3 4.4-11.[address] [facility] Absolute lymphocyte countOrd ered By: Lethatyler Wadsworth on 04-20-2024 Lymphocytes Auto (Unsp spec) [#/Vol] 3.59 10*3/uL 0.83-4.[address] [facility] Absolute neutrophil countOrd ered By: Charla Wadsworth on 04-20-2024 Absolute neutrophil count 6.1 X10^3/uL 2.0-7.[address] [facility] Automated lymphocyte count a s percentage of total leukocytesOrdered By: Charla Wadsworth on 04-20-2024 Lymphocytes/100 WBC Auto (Unsp spec) 33.6 % 19-[address] [facility] Bacteria LM.HPF (Urine sed) [#/Area]Ordered By: Charla Wadsworth on 04-20-2024 Urine sediment bacteria count by microscopy (number/high power field) RARE /hpf None Seen [facility] Basic Metabolic Profile (BMP )on 04-20-2024 BUN/CRE 15.6 RATIO Normal 10-[address] [facility] Comment on above: Performed By: #### L 501.9985, L100.0100, L500.2500 ####[facility] [address] [place], [address] CA,Total 9.5 mg/dL Normal 8.5-10.[address] [facility] Comment on above: Performed By: #### L 501.9985, L100.0100, L500.2500 ####[facility] [address] [place], [address] Chloride [Moles/Vol] 108 mmol/L High 98-107 [facility] Comment on above: Performed By: #### L 501.9985, L100.0100, L500.2500 ####[facility] [address] [place], [address] CO2 [Moles/Vol] 30.0 mmol/L Normal 21.0-32.[address] [facility] Comment on above: Performed By: #### L 501.9985, L100.0100, L500.2500 ####[facility] [address] [place], [address] Creatinine [Mass/Vol] 1.09 mg/dL High 0.55-1.02 [facility] Comment on above: Result Comment: The validity of the calculated GFR GFRAA in patients over70 years has not been determined. Clinical correlation isessential. Performed By: #### L 501.9985, L100.0100, L500.2500 ####[facility] [address] [place], [address] EST GFR - AA 66 mL/min Normal >[address] [facility] Comment on above: Result Comment: Afri can Nauruan GFR Calc Performed By: #### L 501.9985, L100.0100, L500.2500 ####[facility] [address] [place], [address] GAP 4 Low 5-[address] [facility] Comment on above: Performed By: #### L 501.9985, L100.0100, L500.2500 ####[facility] [address] [place], [address] GFR/1.73 sq M.predicted among non-blacks MDRD (S/P/Bld) [Vol rate/Area] 55 mL/min/{1.73_m2} Low >[address] [facility] Comment on above: Result Comment: Non- GFR Calc Performed By: #### L 501.9985, L100.0100, L500.2500 ####[facility] [address] [place], [address] Glucose [Mass/Vol] 202 mg/dL High 74-106 [facility] Comment on above: Result Comment: Gluc ose result greater than or equal to 200 mg/dLsuggests DIABETES MELLITUS per A.D.A. criteria. Performed By: #### L 501.9985, L100.0100, L500.2500 ####[facility] [address] [place], [address] Potassium [Moles/Vol] 5.5 mmol/L High 3.5-5.1 [facility] Comment on above: Performed By: #### L 501.9985, L100.0100, L500.2500 ####[facility] [address] [place], [address] Sodium [Moles/Vol] 142 mmol/L Normal 136-145 [facility] Comment on above: Performed By: #### L 501.9985, L100.0100, L500.2500 ####[facility] [address] [place], [address] Urea nitrogen [Mass/Vol] 17 mg/dL Normal 7-[address] [facility] Comment on above: Performed By: #### L 501.9985, L100.0100, L500.2500 ####[facility] [address] [place], [address] Basophil percentageOrdered B y: Charla Wadsworth on 04-20-2024 Basophils/100 WBC (Bld) 0.5 % 0-1 [facility] Basophil percentage 0.5 % 0-1 [facility] Bilirubin Test strip Ql (U)O rdered By: Charla Wadsworth on 04-20-2024 Bilirubin Ql (U) Negative Negative [facility] Blood urea nitrogen (BUN)/cr eatinine ratioOrdered By: Charla Wadsworth on 04-20-2024 Blood urea nitrogen (BUN)/creatinine ratio 15.6 RATIO 10-[address] [facility] CBC W/Diff, Automatedon 04-11 Absolute Lymph 3.59 X10 3/uL Normal 0.83-4.[address] [facility] Comment on above: Performed By: #### L 501.9985, L100.0100, L500.2500 ####[facility] [address] [place], [address] Absolute Neut 6.1 X10 3/uL Normal 2.0-7.[address] [facility] Comment on above: Performed By: #### L 501.9985, L100.0100, L500.2500 ####[facility] [address] [place], [address] Basophils/100 WBC (Bld) 0.5 % Normal 0-1 [facility] Comment on above: Performed By: #### L 501.9985, L100.0100, L500.2500 ####[facility] [address] [place], [address] Eosinophils/100 WBC (Bld) 1.8 % Normal 0-[address] [facility] Comment on above: Performed By: #### L 501.9985, L100.0100, L500.2500 ####[facility] [address] [place], [address] Erythrocyte distribution width (RBC) [Ratio] 14.3 % Normal 11.6-14.[address] [facility] Comment on above: Performed By: #### L 501.9985, L100.0100, L500.2500 ####[facility] [address] [place], [address] Hematocrit (Bld) [Volume fraction] 43.8 % Normal 37-[address] [facility] Comment on above: Performed By: #### L 501.9985, L100.0100, L500.2500 ####[facility] [address] [place], [address] Hemoglobin (Bld) [Mass/Vol] 13.8 g/dL Normal 12.0-15.[address] [facility] Comment on above: Performed By: #### L 501.9985, L100.0100, L500.2500 ####[facility] [address] [place], [address] IG% 0.800 Normal 0.0-0.[address] [facility] Comment on above: Result Comment: IG% - Immature Granulocytes (promyelocytes, myelocytes andmetamyelocytes) > 1% indicates that a LEFT SHIFT is Present. Performed By: #### L 501.9985, L100.0100, L500.2500 ####[facility] [address] [place], [address] Lymphocytes/100 WBC (Bld) 33.6 % Normal 19-[address] [facility] Comment on above: Performed By: #### L 501.9985, L100.0100, L500.2500 ####[facility] [address] [place], [address] MCH (RBC) [Entitic mass] 28.6 pg Normal 27.0-32.[address] [facility] Comment on above: Performed By: #### L 501.9985, L100.0100, L500.2500 ####[facility] [address] [place], [address] MCHC (RBC) [Mass/Vol] 31.5 g/dL Low 32-36 [facility] Comment on above: Performed By: #### L 501.9985, L100.0100, L500.2500 ####[facility] [address] [place], [address] MCV (RBC) [Entitic vol] 90.9 fL Normal 81-99 [facility] Comment on above: Performed By: #### L 501.9985, L100.0100, L500.2500 ####[facility] [address] [place], [address] Monocytes/100 WBC (Bld) 6.5 % Normal 0-10 [facility] Comment on above: Performed By: #### L 501.9985, L100.0100, L500.2500 ####[facility] [address] [place], [address] Neutrophils/100 WBC (Bld) 56.8 % Normal 47-[address] [facility] Comment on above: Performed By: #### L 501.9985, L100.0100, L500.2500 ####[facility] [address] [place], [address] Nucleated RBC (Bld) [#/Vol] 0 10*3/uL Normal 0-[address] [facility] Comment on above: Performed By: #### L 501.9985, L100.0100, L500.2500 ####[facility] [address] [place], [address] Platelet mean volume (Bld) [Entitic vol] 10.1 fL Normal 6.2-12.[address] [facility] Comment on above: Performed By: #### L 501.9985, L100.0100, L500.2500 ####[facility] [address] [place], [address] Platelets (Bld) [#/Vol] 207 10*3/uL Normal 150-[address] [facility] Comment on above: Performed By: #### L 501.9985, L100.0100, L500.2500 ####[facility] [address] [place], [address] RBC (Bld) [#/Vol] 4.82 10*6/uL Normal 4.2-5.4 [facility] Comment on above: Performed By: #### L 501.9985, L100.0100, L500.2500 ####[facility] [address] [place], [address] RDW SD 47.8 fl High 35.1-43.[address] [facility] Comment on above: Performed By: #### L 501.9985, L100.0100, L500.2500 ####[facility] [address] [place], [address] WBC (Bld) [#/Vol] 10.7 10*3/uL Normal 4.4-11.0 [facility] Comment on above: Performed By: #### L 501.9985, L100.0100, L500.2500 ####[facility] [address] [facility] [place], [address] Calcium [Mass/Vol]Ordered By : Charla Wadsworth on 04-20-2024 Serum or plasma calcium measurement (mass/volume) 9.5 mg/dL 8.5-10.[address] [facility] Carbon dioxide measurementOr dered By: Charla Wadsworth on 04-20-2024 CO2 [Moles/Vol] 30.0 mmol/L 21.0-32.[address] [facility] Carbon dioxide measurement 30.0 mmol/L 21.0-32.[address] [facility] Chloride measurementOrdered By: Charla Wadsworth on 04-20-2024 Chloride [Moles/Vol] 108 mmol/L High 98-107 [facility] Chloride measurement 108 mmol/L High 98-107 [facility] Clarity (U)Ordered By: Wilma Wadsworth on 04-20-2024 Urine clarity Clear Clear [facility] Color (U)Ordered By: Stefanie Wadsworth on 04-20-2024 Urine color determination Yellow Yellow [facility] Creatinine [Mass/Vol]Ordered By: Charla Wadsworth on 04-20-2024 Serum or plasma creatinine measurement (mass/volume) 1.09 mg/dL High 0.55-1.[address] [facility] Eosinophil percentageOrdered By: Charla Wadsworth on 04-20-2024 Eosinophils/100 WBC (Bld) 1.8 % 0-[address] [facility] Eosinophil percentage 1.8 % 0-5 [facility] Erythrocyte distribution wid th (RBC) [Ratio]Ordered By: Charla Wadsworth on 04-20-2024 Erythrocyte distribution width ratio 14.3 % 11.6-14.[address] [facility] Erythrocyte distribution wid th ratioOrdered By: Charla Wadswotrh on 04-20-2024 Erythrocyte distribution width (RBC) [Ratio] 14.3 % 11.6-14.[address] [facility] Erythrocyte distribution wid th standard deviationOrdered By: Charla Wadsworth on 04-20-2024 Erythrocyte distribution width (RBC) [Ratio] 47.8 fl High 35.1-43.[address] [facility] Erythrocyte distribution width standard deviation 47.8 fl High 35.1-43.[address] [facility] Estimated glomerular filtrat ion rate (GFR) AmericanOrdered By: Charla Wadsworth on 04-20-2024 Estimated glomerular filtration rate (GFR) 66 mL/min >[address] [facility] Glomerular filtration rate ( GFR) estimationOrdered By: Charla Wadsworth on 04-20-2024 GFR/1.73 sq M.predicted among non-blacks MDRD (S/P/Bld) [Vol rate/Area] 55 mL/min/{1.73_m2} Low >[address] [facility] Glomerular filtration rate (GFR) estimation 55 mL/min Low >[address] [facility] Glucose Ql (U)Ordered By: Letha Wadsworth on 04-20-2024 Urine glucose detection 50 mg/dl High Normal [facility] Glucose measurementOrdered B y: Charla Wadsworth on 04-20-2024 Glucose [Mass/Vol] 202 mg/dL High 74-106 [facility] Glucose measurement 202 mg/dL High 74-106 [facility] HbA1c (Bld) [Mass fraction]O rdered By: Charla Wadsworth on 04-20-2024 Hemoglobin A1c percentage 8.3 % High 3.8-5.[address] [facility] Hematocrit Auto (Bld) [Volum e fraction]Ordered By: Charla Wadsworth on 04-20-2024 Hematocrit (Bld) [Volume fraction] 43.8 % 37-[address] [facility] Automated blood hematocrit (percentage) 43.8 % 37-[address] [facility] Hemoglobin A1con 04-20-2024 HbA1c (Bld) [Mass fraction] 8.3 % High 3.8-5.[address] [facility] Comment on above: Result Comment: Norm al < 5.7 % Prediabetic 5.7 - 6.4 % Diabetic >or= 6.5 % Please note range changes. Performed By: #### L 501.0944, L100.0100, L500.2500 ####[facility] [address] [place], [address] Hemoglobin A1c percentageOrd ered By: Charla Wadsworth on 04-20-2024 HbA1c (Bld) [Mass fraction] 8.3 % High 3.8-5.[address] [facility] Hemoglobin measurementOrdere d By: tyler Wadsworth on 04-20-2024 Hemoglobin (Bld) [Mass/Vol] 13.8 g/dL 12.0-15.[address] [facility] Hemoglobin measurement 13.8 g/dL 12.0-15.0 [place] Hyaline casts LM.LPF (Urine sed) [#/Area]Ordered By: Reginachina grovejoselyn Wadsworth on 04-20-2024 Hyaline casts (Urine sed) [#/Area] 0 /[LPF] 0-[address] [facility] Urine sediment hyaline cast count by microscopy (number/low power field) 0-5 SEEN /lpf 0-[address] [facility] Immature granulocytes/100 WB C Auto (Bld)Ordered By: Charla Wadsworth on 04-20-2024 Immature granulocytes/100 WBC (Bld) 0.800 % 0.0-0.[address] [facility] Automated immature granulocyte percentage 0.800 % 0.0-0.[address] [facility] Internal Medicine Office Vis iton 04-20-2024 Internal Medicine Office Visit Normal [facility] Ketones Test strip Ql (U)Ord ered By: Charla Wadsworth on 04-20-2024 Ketones Ql (U) Negative Negative [facility] Leukocyte esterase Test stri p Ql (U)Ordered By: Charla Wadsworth on 04-20-2024 Urine leukocyte esterase detection by dipstick 25 /ul High Negative [facility] Lymphocytes Auto (Unsp spec) [#/Vol]Ordered By: Charla Wadsworth on 04-20-2024 Absolute lymphocyte count 3.59 X10^3/uL 0.83-4.[address] [facility] Lymphocytes/100 WBC Auto (Un sp spec)Ordered By: Charla Wadsworth on 04-20-2024 Automated lymphocyte count as percentage of total leukocytes 33.6 % 19-[address] [facility] MCV (RBC) [Entitic vol]Order ed By: Charla Wadsworth on 04-20-2024 MCV (mean corpuscular volume) determination 90.9 fL 81-[address] [facility] MCV (mean corpuscular volume ) determinationOrdered By: Charla Wadsworth on 04-20-2024 MCV (RBC) [Entitic vol] 90.9 fL 81-99 [facility] Mean corpuscular hemoglobin (MCH) determinationOrdered By: Charla Wadsworth on 04-20-2024 MCH (RBC) [Entitic mass] 28.6 pg 27.0-32.[address] [facility] Mean corpuscular hemoglobin (MCH) determination 28.6 pg 27.0-32.[address] [facility] Mean corpuscular hemoglobin concentration (MCHC) determinationOrdered By: Charla Wadsworth on 04-20-2024 Mean corpuscular hemoglobin concentration (MCHC) determination 31.5 g/dL Low 32-[address] [facility] Mean platelet volume determi nationOrdered By: Charla Wadsworth on 04-20-2024 Mean platelet volume determination 10.1 fl 6.2-12.[address] [facility] Microscopic analysis of urin e for red blood cells (RBC)Ordered By: Charla Wadsworth on 04-20-2024 Microscopic analysis of urine for red blood cells (RBC) 0 SEEN /hpf [facility] Monocyte percentageOrdered B y: Charla Wadsworth on 04-20-2024 Monocytes/100 WBC (Bld) 6.5 % 0-10 [facility] Monocyte percentage 6.5 % 0-10 [facility] Mucus LM Ql (Urine sed)Order ed By: Charla Wadsworth on 04-20-2024 Mucus Ql (Urine sed) 0 SEEN /hpf [facility] Neutrophil percentageOrdered By: Charla Wadsworth on 04-20-2024 Neutrophils/100 WBC (Bld) 56.8 % 47-[address] [facility] Neutrophil percentage 56.8 % 47-70 [facility] Nitrite Test strip Ql (U)Ord ered By: Charla Wadsworth on 04-20-2024 Nitrite Ql (U) Negative Negative [facility] Nucleated red blood cell per centageOrdered By: Charla Wadsworth on 04-20-2024 Nucleated red blood cell percentage 0 % 0-[address] [facility] Platelet countOrdered By: Letha Wadsworth on 04-20-2024 Platelets (Bld) [#/Vol] 207 10*3/uL 150-[address] [facility] Platelet count 207 K/mm3 150-[address] [facility] Potassium measurementOrdered By: Charla Wadsworth on 04-20-2024 Potassium [Moles/Vol] 5.5 mmol/L High 3.5-5.1 [facility] Potassium measurement 5.5 mmol/L High 3.5-5.1 [facility] Protein Test strip Ql (U)Ord ered By: Charla Wadsworth on 04-20-2024 Protein Ql (U) 15 mg/dl High Negative [facility] Urine protein assay by test strip, semi-quantitative 15 mg/dl High Negative [facility] RBC Auto (Bld) [#/Vol]Ordere d By: Charla Wadsworth on 04-20-2024 RBC (Bld) [#/Vol] 4.82 10*6/uL 4.2-5.4 [facility] Automated blood erythrocyte count 4.82 M/mm3 4.2-5.[address] [facility] Serum anion gap measurementO rdered By: Charla Wadsworth on 04-20-2024 Serum anion gap measurement 4 Low 5-[address] [facility] Serum or plasma calcium heather urement (mass/volume)Ordered By: Charla Wadsworth on 04-20-2024 Calcium [Mass/Vol] 9.5 mg/dL 8.5-10.1 [facility] Serum or plasma creatinine m easurement (mass/volume)Ordered By: Charla Wadsworth on 04-20-2024 Creatinine [Mass/Vol] 1.09 mg/dL High 0.55-1.02 [facility] Serum or plasma urea nitroge n measurement (mass/volume)Ordered By: Charla Wadsworth on 04-20-2024 Urea nitrogen [Mass/Vol] 17 mg/dL - [facility] Sodium levelOrdered By: Regina mckeonbrisa Ananth on 04-20-2024 Sodium [Moles/Vol] 142 mmol/L 136-145 [facility] Sodium level 142 mmol/L 136-[address] [facility] Specific gravity (U) [Rel de nsity]Ordered By: Charla Wadsworth on 04-20-2024 Urine specific gravity measurement 1.020 1.002-1.[address] [facility] Squamous epithelial cells de tection in urine sediment by light microscopyOrdered By: Charla Wadsworth on 04-20-2024 Epithelial cells.squamous LM Ql (Urine sed) 0-5 SEEN /hpf 5-[address] [facility] Transitional cells detection in urine sediment by light microscopyOrdered By: Charla Wadsworth on 04-20-2024 Transitional cells LM Ql (Urine sed) 0-5 SEEN /hpf 0-[address] [facility] Urea nitrogen [Mass/Vol]Orde red By: Charla Wadsworth on 04-20-2024 Serum or plasma urea nitrogen measurement (mass/volume) 17 mg/dL 09-[address] [facility] Urinalysis, Completeon 04-20 BACTERIA RARE Normal None Seen [facility] Comment on above: Order Comment: ADOLPH CTOR TO SPECIFY Performed By: #### L 400.0001 ####[facility] [address] [place], [place], [id number] CAST,HYALINE 0-5 SEEN Normal 0-[address] [facility] Comment on above: Order Comment: ADOLPH CTOR TO SPECIFY Performed By: #### L 400.0001 ####[facility] [address] [place], [place], [id number] EPI,SQUAMOUS 0-5 SEEN Normal 5-[address] [facility] Comment on above: Order Comment: COLLE CTOR TO SPECIFY Performed By: #### L 400.0001 ####[facility] [address] [place], [address] EPI,TRANSITION 0-5 SEEN Normal 0-[address] [facility] Comment on above: Order Comment: ADOLPH CTOR TO SPECIFY Performed By: #### L 400.0001 ####[facility] [address] [place], [address] RBC 0 SEEN Normal 0-[address] [facility] Comment on above: Order Comment: ADOLPH CTOR TO SPECIFY Performed By: #### L 400.0001 ####[facility] [address] [place], [address] WBC 0-5 SEEN Normal 0-[address] [facility] Comment on above: Order Comment: ADOLPH CTOR TO SPECIFY Performed By: #### L 400.0001 ####[facility] [address] [place], [address] Mucus Ql (Urine sed) 0 SEEN Normal [facility] Comment on above: Order Comment: ADOLPH CTOR TO SPECIFY Performed By: #### L 400.0001 ####[facility] [address] [place], [address] Urine clarityOrdered By: Ozzy Wadsworth on 04-20-2024 Clarity (U) Clear Clear [facility] Urine color determinationOrd ered By: Charla Wadsworth on 04-20-2024 Color (U) Yellow Yellow [facility] Urine glucose detectionOrder ed By: Charla Wadsworth on 04-20-2024 Glucose Ql (U) 50 mg/dl High Normal [facility] Urine leukocyte esterase det ection by dipstickOrdered By: Charla Wadsworth on 04-20-2024 Leukocyte esterase Test strip Ql (U) 25 /ul High Negative [facility] Urine pHOrdered By: Maximilian Wadsworth on 04-20-2024 pH (U) 6.0 [pH] 5.0 - 8.[address] [facility] Urine sediment bacteria coun t by microscopy (number/high power field)Ordered By: Charla Wadsworth on 04-20-2024 Bacteria LM.HPF (Urine sed) [#/Area] RARE /hpf None Seen [facility] Urine specific gravity measu rementOrdered By: Charla Wadsworth on 04-20-2024 Specific gravity (U) [Rel density] 1.020 1.002-1.[address] [facility] Urine total bilirubin detect ion by test stripOrdered By: Charla Wadsworth on 04-20-2024 Urine total bilirubin detection by test strip Negative Negative [facility] Urine urobilinogen measureme ntOrdered By: Charla Wadsworth on 04-20-2024 Urobilinogen Ql (U) 1 mg/dl High Normal [facility] Urobilinogen Ql (U)Ordered B y: Charla Wadsworth on 04-20-2024 Urine urobilinogen measurement 1 mg/dl High Normal [facility] White blood cell (WBC) count Ordered By: Charla Wadsworth on 04-20-2024 WBC (Bld) [#/Vol] 10.7 10*3/uL 4.4-11.0 [facility] White blood cell (WBC) count 10.7 K/mm3 4.4-11.[address] [facility] White blood cell countOrdere d By: Charla Wadsworth on 04-20-2024 White blood cell count 0-5 SEEN /hpf 0-[address] [facility] White blood cell count 0-5 SEEN /hpf 0-[address] [facility] pH (U)Ordered By: Charla Wadsworth on 04-20-2024 Urine pH 6.0 5.0 - 8.[address] [facility] Emergency Department Summary on 04-15-2024 Emergency Department Summary Normal [facility] Basic Metabolic Profile (BMP )on 04-07-2024 BUN Normal 7-[address] [facility] Comment on above: Result Comment: Canc elled via OM: Order cancelled - Patient discharged Performed By: #### L 500.2500, L100.0100 ####[facility] [address], [address] BUN/CRE Normal 10-[address] [facility] Comment on above: Result Comment: Canc elled via OM: Order cancelled - Patient discharged Performed By: #### L 500.2500, L100.0100 ####[facility] [address] [place], [address] CA,Total Normal 8.5-10.[address] [facility] Comment on above: Result Comment: Canc elled via OM: Order cancelled - Patient discharged Performed By: #### L 500.2500, L100.0100 ####[facility] [address] [place], [address] CL Normal 98-[address] [facility] Comment on above: Result Comment: Canc elled via OM: Order cancelled - Patient discharged Performed By: #### L 500.2500, L100.0100 ####[facility] [address] [place], [address] CO2 Normal 21.0-32.[address] [facility] Comment on above: Result Comment: Canc elled via OM: Order cancelled - Patient discharged Performed By: #### L 500.2500, L100.0100 ####[facility] [address] [place], [address] CREAT,SERUM Normal 0.55-1.[address] [facility] Comment on above: Result Comment: Canc elled via OM: Order cancelled - Patient discharged Performed By: #### L 500.2500, L100.0100 ####[facility] [address] [place], [address] EST GFR Normal >[address] [facility] Comment on above: Result Comment: Canc elled via OM: Order cancelled - Patient discharged Performed By: #### L 500.2500, L100.0100 ####[facility] [address] [place], [address] EST GFR - AA Normal >[address] [facility] Comment on above: Result Comment: Canc elled via OM: Order cancelled - Patient discharged Performed By: #### L 500.2500, L100.0100 ####[facility] [address] [place], [address] GAP Normal 5-[address] [facility] Comment on above: Result Comment: Canc elled via OM: Order cancelled - Patient discharged Performed By: #### L 500.2500, L100.0100 ####[facility] [address] [place], [address] GLU Normal 74-[address] [facility] Comment on above: Result Comment: Canc elled via OM: Order cancelled - Patient discharged Performed By: #### L 500.2500, L100.0100 ####[facility] [address] [place], [address] Potassium Normal 3.5-5.[address] [facility] Comment on above: Result Comment: Canc elled via OM: Order cancelled - Patient discharged Performed By: #### L 500.2500, L100.0100 ####[facility] [address] [place], [address] Basic Metabolic Profile (BMP) Normal 136-[address] [facility] Comment on above: Result Comment: Canc elled via OM: Order cancelled - Patient discharged Performed By: #### L 500.2500, L100.0100 ####[facility] [address] [place], [address] CBC W/Diff, Automatedon -2 Absolute Neut Normal 2.0-7.[address] [facility] Comment on above: Result Comment: Canc elled via OM: Order cancelled - Patient discharged Performed By: #### L 500.2500, L100.0100 ####[facility] [address] [place], [address] HCT Normal 37-[address] [facility] Comment on above: Result Comment: Canc elled via OM: Order cancelled - Patient discharged Performed By: #### L 500.2500, L100.0100 ####[facility] [address] [place], [address] HGB Normal 12.0-15.[address] [facility] Comment on above: Result Comment: Canc elled via OM: Order cancelled - Patient discharged Performed By: #### L 500.2500, L100.0100 ####[facility] [address] [place], [address] MCH Normal 27.0-32.[address] [facility] Comment on above: Result Comment: Canc elled via OM: Order cancelled - Patient discharged Performed By: #### L 500.2500, L100.0100 ####[facility] [address] [place], [address] MCHC Normal 32-[address] [facility] Comment on above: Result Comment: Canc elled via OM: Order cancelled - Patient discharged Performed By: #### L 500.2500, L100.0100 ####[facility] [address] [place], [address] MCV Normal 81-[address] [facility] Comment on above: Result Comment: Canc elled via OM: Order cancelled - Patient discharged Performed By: #### L 500.2500, L100.0100 ####[facility] [address] [place], [address] NEUT% Normal 47-[address] [facility] Comment on above: Result Comment: Canc elled via OM: Order cancelled - Patient discharged Performed By: #### L 500.2500, L100.0100 ####[facility] [address] [place], [address] PLT Normal 150-[address] [facility] Comment on above: Result Comment: Canc elled via OM: Order cancelled - Patient discharged Performed By: #### L 500.2500, L100.0100 ####[facility] [address] [place], [address] RBC Normal 4.2-5.[address] [facility] Comment on above: Result Comment: Canc elled via OM: Order cancelled - Patient discharged Performed By: #### L 500.2500, L100.0100 ####[facility] [address] [place], [address] RDW CV Normal 11.6-14.[address] [facility] Comment on above: Result Comment: Canc elled via OM: Order cancelled - Patient discharged Performed By: #### L 500.2500, L100.0100 ####[facility] [address] [place], [address] RDW SD Normal 35.1-43.[address] [facility] Comment on above: Result Comment: Canc elled via OM: Order cancelled - Patient discharged Performed By: #### L 500.2500, L100.0100 ####[facility] [address] [place], [address] WBC Normal 4.4-11.[address] [facility] Comment on above: Result Comment: Canc elled via OM: Order cancelled - Patient discharged Performed By: #### L 500.2500, L100.0100 ####[facility] [address] [place], [address] Basic Metabolic Profile (BMP )on 04-06-2024 BUN Normal 7-[address] [facility] Comment on above: Result Comment: Canc elled via OM: Order cancelled - Patient discharged Performed By: #### L 100.0100, L500.2500 ####[facility] [address] [place], [address] BUN/CRE Normal 10-[address] [facility] Comment on above: Result Comment: Canc elled via OM: Order cancelled - Patient discharged Performed By: #### L 100.0100, L500.2500 ####[facility] [address] [place], [address] CA,Total Normal 8.5-10.[address] [facility] Comment on above: Result Comment: Canc elled via OM: Order cancelled - Patient discharged Performed By: #### L 100.0100, L500.2500 ####[facility] [address] [place], [address] CL Normal 98-[address] [facility] Comment on above: Result Comment: Canc elled via OM: Order cancelled - Patient discharged Performed By: #### L 100.0100, L500.2500 ####[facility] [address] [place], [address] CO2 Normal 21.0-32.[address] [facility] Comment on above: Result Comment: Canc elled via OM: Order cancelled - Patient discharged Performed By: #### L 100.0100, L500.2500 ####[facility] [address] [place], [address] CREAT,SERUM Normal 0.55-1.[address] [facility] Comment on above: Result Comment: Canc elled via OM: Order cancelled - Patient discharged Performed By: #### L 100.0100, L500.2500 ####[facility] [address] [place], [address] EST GFR Normal >[address] [facility] Comment on above: Result Comment: Canc elled via OM: Order cancelled - Patient discharged Performed By: #### L 100.0100, L500.2500 ####[facility] [address] [place], [address] EST GFR - AA Normal >[address] [facility] Comment on above: Result Comment: Canc elled via OM: Order cancelled - Patient discharged Performed By: #### L 100.0100, L500.2500 ####[facility] [address] [place], [address] GAP Normal 5-[address] [facility] Comment on above: Result Comment: Canc elled via OM: Order cancelled - Patient discharged Performed By: #### L 100.0100, L500.2500 ####[facility] [address] [place], [address] GLU Normal 74-[address] [facility] Comment on above: Result Comment: Canc elled via OM: Order cancelled - Patient discharged Performed By: #### L 100.0100, L500.2500 ####[facility] [address] [place], [address] Potassium Normal 3.5-5.[address] [facility] Comment on above: Result Comment: Canc elled via OM: Order cancelled - Patient discharged Performed By: #### L 100.0100, L500.2500 ####[facility] [address] [place], [address] Basic Metabolic Profile (BMP) Normal 136-[address] [facility] Comment on above: Result Comment: Canc elled via OM: Order cancelled - Patient discharged Performed By: #### L 100.0100, L500.2500 ####[facility] [address] [place], [address] CBC W/Diff, Automatedon -2 Absolute Neut Normal 2.0-7.[address] [facility] Comment on above: Result Comment: Canc elled via OM: Order cancelled - Patient discharged Performed By: #### L 100.0100, L500.2500 ####[facility] [address] [place], [address] HCT Normal 37-[address] [facility] Comment on above: Result Comment: Canc elled via OM: Order cancelled - Patient discharged Performed By: #### L 100.0100, L500.2500 ####[facility] [address] [place], [address] HGB Normal 12.0-15.[address] [facility] Comment on above: Result Comment: Canc elled via OM: Order cancelled - Patient discharged Performed By: #### L 100.0100, L500.2500 ####[facility] [address] [place], [address] MCH Normal 27.0-32.[address] [facility] Comment on above: Result Comment: Canc elled via OM: Order cancelled - Patient discharged Performed By: #### L 100.0100, L500.2500 ####[facility] [address] [place], [address] MCHC Normal 32-[address] [facility] Comment on above: Result Comment: Canc elled via OM: Order cancelled - Patient discharged Performed By: #### L 100.0100, L500.2500 ####[facility] [address] [place], [address] MCV Normal 81-[address] [facility] Comment on above: Result Comment: Canc elled via OM: Order cancelled - Patient discharged Performed By: #### L 100.0100, L500.2500 ####[facility] [address] [place], [address] NEUT% Normal 47-[address] [facility] Comment on above: Result Comment: Canc elled via OM: Order cancelled - Patient discharged Performed By: #### L 100.0100, L500.2500 ####[facility] [address] [place], [address] PLT Normal 150-[address] [facility] Comment on above: Result Comment: Canc elled via OM: Order cancelled - Patient discharged Performed By: #### L 100.0100, L500.2500 ####[facility] [address] [place], [address] RBC Normal 4.2-5.[address] [facility] Comment on above: Result Comment: Canc elled via OM: Order cancelled - Patient discharged Performed By: #### L 100.0100, L500.2500 ####[facility] [address] [place], [address] RDW CV Normal 11.6-14.[address] [facility] Comment on above: Result Comment: Canc elled via OM: Order cancelled - Patient discharged Performed By: #### L 100.0100, L500.2500 ####[facility] [address] [place], [address] RDW SD Normal 35.1-43.[address] [facility] Comment on above: Result Comment: Canc elled via OM: Order cancelled - Patient discharged Performed By: #### L 100.0100, L500.2500 ####[facility] [address] [place], [address] WBC Normal 4.4-11.[address] [facility] Comment on above: Result Comment: Canc elled via OM: Order cancelled - Patient discharged Performed By: #### L 100.0100, L500.2500 ####[facility] [address] [place], [address] Absolute lymphocyte countOrd ered By: Autumn Gorman on 04-05-2024 Lymphocytes Auto (Unsp spec) [#/Vol] 1.85 10*3/uL 0.83-4.[address] [facility] Absolute neutrophil countOrd ered By: Autumn Gorman on 04-05-2024 Absolute neutrophil count 15.0 X10^3/uL High 2.0-7.[address] [facility] Automated lymphocyte count a s percentage of total leukocytesOrdered By: Autumn Gorman on 04-05-2024 Lymphocytes/100 WBC Auto (Unsp spec) 10.5 % Low 19-[address] [facility] Basic Metabolic Profile (BMP )on 04-05-2024 BUN/CRE 24.8 RATIO High 10-[address] [facility] Comment on above: Performed By: #### L 501.5200, L500.2500, L100.0100, L501.2300 ####[facility] [address] [place], [address] CA,Total 10.1 mg/dL Normal 8.5-10.[address] [facility] Comment on above: Performed By: #### L 501.5200, L500.2500, L100.0100, L501.2300 ####[facility] [address] [place], [address] Chloride [Moles/Vol] 107 mmol/L Normal 98-107 [facility] Comment on above: Performed By: #### L 501.5200, L500.2500, L100.0100, L501.2300 ####[facility] [address] [place], [address] CO2 [Moles/Vol] 27.0 mmol/L Normal 21.0-32.[address] [facility] Comment on above: Performed By: #### L 501.5200, L500.2500, L100.0100, L501.2300 ####[facility] [address] [place], [address] Creatinine [Mass/Vol] 1.25 mg/dL High 0.55-1.02 [facility] Comment on above: Result Comment: The validity of the calculated GFR GFRAA in patients over70 years has not been determined. Clinical correlation isessential. Performed By: #### L 501.5200, L500.2500, L100.0100, L501.2300 ####[facility] [address] [place], [address] ECRCL 54.75 ml/min Normal [facility] Comment on above: Performed By: #### L 501.5200, L500.2500, L100.0100, L501.2300 ####[facility] [address] [place], [address] EST GFR - AA 57 mL/min Low >[address] [facility] Comment on above: Result Comment: Afri can Nauruan GFR Calc Performed By: #### L 501.5200, L500.2500, L100.0100, L501.2300 ####[facility] [address] [place], [address] GAP 4 Low 5-[address] [facility] Comment on above: Performed By: #### L 501.5200, L500.2500, L100.0100, L501.2300 ####[facility] [address] [place], [address] GFR/1.73 sq M.predicted among non-blacks MDRD (S/P/Bld) [Vol rate/Area] 47 mL/min/{1.73_m2} Low >[address] [facility] Comment on above: Result Comment: Non- GFR Calc Performed By: #### L 501.5200, L500.2500, L100.0100, L501.2300 ####[facility] [address] [place], [address] Glucose [Mass/Vol] 286 mg/dL High 74-106 [facility] Comment on above: Result Comment: Gluc ose result greater than or equal to 200 mg/dLsuggests DIABETES MELLITUS per A.D.A. criteria. Performed By: #### L 501.5200, L500.2500, L100.0100, L501.2300 ####[facility] [address] [place], [address] Potassium [Moles/Vol] 4.8 mmol/L Normal 3.5-5.1 [facility] Comment on above: Performed By: #### L 501.5200, L500.2500, L100.0100, L501.2300 ####[facility] [address] [place], [address] Sodium [Moles/Vol] 138 mmol/L Normal 136-145 [facility] Comment on above: Performed By: #### L 501.5200, L500.2500, L100.0100, L501.2300 ####[facility] [address] [place], [address] Urea nitrogen [Mass/Vol] 31 mg/dL High 7-[address] [facility] Comment on above: Performed By: #### L 501.5200, L500.2500, L100.0100, L501.2300 ####[facility] [address] [place], [address] Basophil percentageOrdered B y: Autumn Gorman on 04-05-2024 Basophils/100 WBC (Bld) 0.1 % 0-1 [facility] Basophil percentage 0.1 % 0-1 [facility] Blood urea nitrogen (BUN)/cr eatinine ratioOrdered By: Autumn Gorman on 04-05-2024 Blood urea nitrogen (BUN)/creatinine ratio 24.8 RATIO High 10-[address] [facility] CBC W/Diff, Automatedon 03-12 Absolute Lymph 1.85 X10 3/uL Normal 0.83-4.[address] [facility] Comment on above: Performed By: #### L 501.5200, L500.2500, L100.0100, L501.2300 ####[facility] [address] [place], [address] Absolute Neut 15.0 X10 3/uL High 2.0-7.[address] [facility] Comment on above: Performed By: #### L 501.5200, L500.2500, L100.0100, L501.2300 ####[facility] [address] [place], [address] Basophils/100 WBC (Bld) 0.1 % Normal 0-1 [facility] Comment on above: Performed By: #### L 501.5200, L500.2500, L100.0100, L501.2300 ####[facility] [address] [place], [address] Eosinophils/100 WBC (Bld) 0.0 % Normal 0-[address] [facility] Comment on above: Performed By: #### L 501.5200, L500.2500, L100.0100, L501.2300 ####[facility] [address] [place], [address] Erythrocyte distribution width (RBC) [Ratio] 13.8 % Normal 11.6-14.[address] [facility] Comment on above: Performed By: #### L 501.5200, L500.2500, L100.0100, L501.2300 ####[facility] [address] [place], [address] Hematocrit (Bld) [Volume fraction] 42.8 % Normal 37-[address] [facility] Comment on above: Performed By: #### L 501.5200, L500.2500, L100.0100, L501.2300 ####[facility] [address] [place], [address] Hemoglobin (Bld) [Mass/Vol] 13.4 g/dL Normal 12.0-15.[address] [facility] Comment on above: Performed By: #### L 501.5200, L500.2500, L100.0100, L501.2300 ####[facility] [address] [place], [address] IG% 0.700 Normal 0.0-0.[address] [facility] Comment on above: Result Comment: IG% - Immature Granulocytes (promyelocytes, myelocytes andmetamyelocytes) > 1% indicates that a LEFT SHIFT is Present. Performed By: #### L 501.5200, L500.2500, L100.0100, L501.2300 ####[facility] [address] [place], [address] Lymphocytes/100 WBC (Bld) 10.5 % Low 19-[address] [facility] Comment on above: Performed By: #### L 501.5200, L500.2500, L100.0100, L501.2300 ####[facility] [address] [place], [address] MCH (RBC) [Entitic mass] 27.8 pg Normal 27.0-32.[address] [facility] Comment on above: Performed By: #### L 501.5200, L500.2500, L100.0100, L501.2300 ####[facility] [address] [place], [address] MCHC (RBC) [Mass/Vol] 31.3 g/dL Low 32-36 [facility] Comment on above: Performed By: #### L 501.5200, L500.2500, L100.0100, L501.2300 ####[facility] [address] [place], [address] MCV (RBC) [Entitic vol] 88.8 fL Normal 81-99 [facility] Comment on above: Performed By: #### L 501.5200, L500.2500, L100.0100, L501.2300 ####[facility] [address] [place], [address] Monocytes/100 WBC (Bld) 2.9 % Normal 0-10 [facility] Comment on above: Performed By: #### L 501.5200, L500.2500, L100.0100, L501.2300 ####[facility] [address] [place], [address] Neutrophils/100 WBC (Bld) 85.8 % High 47-[address] [facility] Comment on above: Performed By: #### L 501.5200, L500.2500, L100.0100, L501.2300 ####[facility] [address] [place], [address] Nucleated RBC (Bld) [#/Vol] 0 10*3/uL Normal 0-[address] [facility] Comment on above: Performed By: #### L 501.5200, L500.2500, L100.0100, L501.2300 ####[facility] [address] [place], [address] Platelet mean volume (Bld) [Entitic vol] 9.8 fL Normal 6.2-12.[address] [facility] Comment on above: Performed By: #### L 501.5200, L500.2500, L100.0100, L501.2300 ####[facility] [address] [place], [address] Platelets (Bld) [#/Vol] 221 10*3/uL Normal 150-[address] [facility] Comment on above: Performed By: #### L 501.5200, L500.2500, L100.0100, L501.2300 ####[facility] [address] [place], [address] RBC (Bld) [#/Vol] 4.82 10*6/uL Normal 4.2-5.4 [facility] Comment on above: Performed By: #### L 501.5200, L500.2500, L100.0100, L501.2300 ####[facility] [address] [place], [address] RDW SD 45.0 fl High 35.1-43.[address] [facility] Comment on above: Performed By: #### L 501.5200, L500.2500, L100.0100, L501.2300 ####[facility] [address] [place], [address] WBC (Bld) [#/Vol] 17.5 10*3/uL High 4.4-11.0 [facility] Comment on above: Performed By: #### L 501.5200, L500.2500, L100.0100, L501.2300 ####[facility] [address] [place], [address] Calcium [Mass/Vol]Ordered By : Autumn Gorman on 04-05-2024 Serum or plasma calcium measurement (mass/volume) 10.1 mg/dL 8.5-10.[address] [facility] Carbon dioxide measurementOr dered By: Autumn Gorman on 04-05-2024 CO2 [Moles/Vol] 27.0 mmol/L 21.0-32.[address] [facility] Carbon dioxide measurement 27.0 mmol/L 21.0-32.[address] [facility] Chloride measurementOrdered By: Autumn Gorman on 04-05-2024 Chloride [Moles/Vol] 107 mmol/L 98-107 [facility] Chloride measurement 107 mmol/L 98-107 [facility] Creatinine [Mass/Vol]Ordered By: Autumn Gorman on 04-05-2024 Serum or plasma creatinine measurement (mass/volume) 1.25 mg/dL High 0.55-1.[address] [facility] Eosinophil percentageOrdered By: Autumn Gorman on 04-05-2024 Eosinophils/100 WBC (Bld) 0.0 % 0-[address] [facility] Eosinophil percentage 0.0 % 0-5 [facility] Erythrocyte distribution wid th (RBC) [Ratio]Ordered By: Autumn Gorman on 04-05-2024 Erythrocyte distribution width ratio 13.8 % 11.6-14.[address] [facility] Erythrocyte distribution wid th ratioOrdered By: Autumn Gorman on 04-05-2024 Erythrocyte distribution width (RBC) [Ratio] 13.8 % 11.6-14.[address] [facility] Erythrocyte distribution wid th standard deviationOrdered By: Autumn Gorman on 04-05-2024 Erythrocyte distribution width (RBC) [Ratio] 45.0 fl High 35.1-43.[address] [facility] Erythrocyte distribution width standard deviation 45.0 fl High 35.1-43.[address] [facility] Estimated glomerular filtrat ion rate (GFR) AmericanOrdered By: Autumn Gorman on 04-05-2024 Estimated glomerular filtration rate (GFR) 57 mL/min Low >[address] [facility] Estimation of creatinine jennifer aranceOrdered By: Autumn Gorman on 04-05-2024 Estimation of creatinine clearance 54.75 ml/min [facility] Glomerular filtration rate ( GFR) estimationOrdered By: Autumn Gorman on 04-05-2024 GFR/1.73 sq M.predicted among non-blacks MDRD (S/P/Bld) [Vol rate/Area] 47 mL/min/{1.73_m2} Low >[address] [facility] Glomerular filtration rate (GFR) estimation 47 mL/min Low >[address] [facility] Glucose measurementOrdered B y: Autumn Gorman on 04-05-2024 Glucose [Mass/Vol] 286 mg/dL High 74-106 [facility] Glucose measurement 286 mg/dL High 74-106 [facility] Hematocrit Auto (Bld) [Volum e fraction]Ordered By: Autumn Gorman on 04-05-2024 Hematocrit (Bld) [Volume fraction] 42.8 % 37-[address] [facility] Automated blood hematocrit (percentage) 42.8 % 37-[address] [facility] Hemoglobin measurementOrdere d By: Autumn Gorman on 04-05-2024 Hemoglobin (Bld) [Mass/Vol] 13.4 g/dL 12.0-15.[address] [facility] Hemoglobin measurement 13.4 g/dL 12.0-15.0 [place] Immature granulocytes/100 WB C Auto (Bld)Ordered By: Autumn Gorman on 04-05-2024 Immature granulocytes/100 WBC (Bld) 0.700 % 0.0-0.[address] [facility] Automated immature granulocyte percentage 0.700 % 0.0-0.[address] [facility] Lymphocytes Auto (Unsp spec) [#/Vol]Ordered By: Autumn Gorman on 04-05-2024 Absolute lymphocyte count 1.85 X10^3/uL 0.83-4.[address] [facility] Lymphocytes/100 WBC Auto (Un sp spec)Ordered By: Autumn Gorman on 04-05-2024 Automated lymphocyte count as percentage of total leukocytes 10.5 % Low 19-[address] [facility] MCV (RBC) [Entitic vol]Order ed By: Autumn Gorman on 04-05-2024 MCV (mean corpuscular volume) determination 88.8 fL 81-[address] [facility] MCV (mean corpuscular volume ) determinationOrdered By: Autumn Gorman on 04-05-2024 MCV (RBC) [Entitic vol] 88.8 fL 81-99 [facility] Magnesiumon 04-05-2024 Magnesium [Mass/Vol] 2.3 mg/dL Normal 1.6-2.6 [facility] Comment on above: Performed By: #### L 501.5200, L500.2500, L100.0100, L501.2300 ####[facility] [address] [place], [address] Magnesium measurementOrdered By: Autumn Gorman on 04-05-2024 Magnesium [Mass/Vol] 2.3 mg/dL 1.6-2.6 [facility] Magnesium measurement 2.3 mg/dL 1.6-2.6 [facility] Mean corpuscular hemoglobin (MCH) determinationOrdered By: Autumn Gorman on 04-05-2024 MCH (RBC) [Entitic mass] 27.8 pg 27.0-32.[address] [facility] Mean corpuscular hemoglobin (MCH) determination 27.8 pg 27.0-32.[address] [facility] Mean corpuscular hemoglobin concentration (MCHC) determinationOrdered By: Autumn Gorman on 04-05-2024 Mean corpuscular hemoglobin concentration (MCHC) determination 31.3 g/dL Low 32-[address] [facility] Mean platelet volume determi nationOrdered By: Autumn Gorman on 04-05-2024 Mean platelet volume determination 9.8 fl 6.2-12.[address] [facility] Monocyte percentageOrdered B y: Autumn Gorman on 04-05-2024 Monocytes/100 WBC (Bld) 2.9 % 0-10 [facility] Monocyte percentage 2.9 % 0-10 [facility] Neutrophil percentageOrdered By: Autumn Gorman on 04-05-2024 Neutrophils/100 WBC (Bld) 85.8 % High 47-[address] [facility] Neutrophil percentage 85.8 % High 47-70 [facility] Nucleated red blood cell per centageOrdered By: Autumn Gorman on 04-05-2024 Nucleated red blood cell percentage 0 % 0-[address] [facility] Phosphoruson 04-05-2024 Phosphate [Mass/Vol] 3.3 mg/dL Normal 2.5-4.9 [facility] Comment on above: Performed By: #### L 501.5200, L500.2500, L100.0100, L501.2300 ####[facility] [address] [place], [address] Phosphorus measurementOrdere d By: Autumn Gorman on 04-05-2024 Phosphorus measurement 3.3 mg/dL 2.5-4.9 [place] Platelet countOrdered By: Fred Gorman on 04-05-2024 Platelets (Bld) [#/Vol] 221 10*3/uL 150-[address] [facility] Platelet count 221 K/mm3 150-[address] [facility] Potassium measurementOrdered By: Autumn Gorman on 04-05-2024 Potassium [Moles/Vol] 4.8 mmol/L 3.5-5.1 [facility] Potassium measurement 4.8 mmol/L 3.5-5.1 [facility] RBC Auto (Bld) [#/Vol]Ordere d By: Autumn Gorman on 04-05-2024 RBC (Bld) [#/Vol] 4.82 10*6/uL 4.2-5.4 [facility] Automated blood erythrocyte count 4.82 M/mm3 4.2-5.[address] [facility] Serum anion gap measurementO rdered By: Autumn Gorman on 04-05-2024 Serum anion gap measurement 4 Low 5-[address] [facility] Serum or plasma calcium heather urement (mass/volume)Ordered By: Autumn Gorman on 04-05-2024 Calcium [Mass/Vol] 10.1 mg/dL 8.5-10.1 [facility] Serum or plasma creatinine m easurement (mass/volume)Ordered By: Autumn Gorman on 04-05-2024 Creatinine [Mass/Vol] 1.25 mg/dL High 0.55-1.02 [facility] Serum or plasma urea nitroge n measurement (mass/volume)Ordered By: Autumn Gorman on 04-05-2024 Urea nitrogen [Mass/Vol] 31 mg/dL High 7-[address] [facility] Sodium levelOrdered By: Anthony Gorman on 04-05-2024 Sodium [Moles/Vol] 138 mmol/L 136-145 [facility] Sodium level 138 mmol/L 136-[address] [facility] Urea nitrogen [Mass/Vol]Orde red By: Autumn Gorman on 04-05-2024 Serum or plasma urea nitrogen measurement (mass/volume) 31 mg/dL High 7-[address] [facility] White blood cell (WBC) count Ordered By: Autumn Gorman on 04-05-2024 WBC (Bld) [#/Vol] 17.5 10*3/uL High 4.4-11.0 [facility] White blood cell (WBC) count 17.5 K/mm3 High 4.4-11.[address] [facility] Basic Metabolic Profile (BMP )on 04-04-2024 BUN/CRE 14.8 RATIO Normal 10-[address] [facility] Comment on above: Performed By: #### L 501.9520, L100.0100, L500.2500 ####[facility] [address] [place], [address] CA,Total 9.6 mg/dL Normal 8.5-10.[address] [facility] Comment on above: Performed By: #### L 501.9520, L100.0100, L500.2500 ####[facility] [address] [place], [address] Chloride [Moles/Vol] 106 mmol/L Normal 98-107 [facility] Comment on above: Performed By: #### L 501.9520, L100.0100, L500.2500 ####[facility] [address] [place], [address] CO2 [Moles/Vol] 22.0 mmol/L Normal 21.0-32.[address] [facility] Comment on above: Performed By: #### L 501.9520, L100.0100, L500.2500 ####[facility] [address] [place], [address] Creatinine [Mass/Vol] 1.28 mg/dL High 0.55-1.02 [facility] Comment on above: Result Comment: The validity of the calculated GFR GFRAA in patients over70 years has not been determined. Clinical correlation isessential. Performed By: #### L 501.9520, L100.0100, L500.2500 ####[facility] [address] [place], [address] ECRCL 53.47 ml/min Normal [facility] Comment on above: Performed By: #### L 501.9520, L100.0100, L500.2500 ####[facility] [address] [place], [address] EST GFR - AA 55 mL/min Low >[address] [facility] Comment on above: Result Comment: Afri can Nauruan GFR Calc Performed By: #### L 501.9520, L100.0100, L500.2500 ####[facility] [address] [place], [address] GAP 9 Normal 5-[address] [facility] Comment on above: Performed By: #### L 501.9520, L100.0100, L500.2500 ####[facility] [address] [place], [address] GFR/1.73 sq M.predicted among non-blacks MDRD (S/P/Bld) [Vol rate/Area] 45 mL/min/{1.73_m2} Low >[address] [facility] Comment on above: Result Comment: Non- GFR Calc Performed By: #### L 501.9520, L100.0100, L500.2500 ####[facility] [address] [place], [address] Glucose [Mass/Vol] 264 mg/dL High 74-106 [facility] Comment on above: Result Comment: Gluc ose result greater than or equal to 200 mg/dLsuggests DIABETES MELLITUS per A.D.A. criteria. Performed By: #### L 501.9520, L100.0100, L500.2500 ####[facility] [address] [place], [address] Potassium [Moles/Vol] 4.7 mmol/L Normal 3.5-5.1 [facility] Comment on above: Performed By: #### L 501.9520, L100.0100, L500.2500 ####[facility] [address] [place], [address] Sodium [Moles/Vol] 136 mmol/L Normal 136-145 [facility] Comment on above: Performed By: #### L 501.9520, L100.0100, L500.2500 ####[facility] [address] [place], [address] Urea nitrogen [Mass/Vol] 19 mg/dL High 7-[address] [facility] Comment on above: Performed By: #### L 501.9520, L100.0100, L500.2500 ####[facility] [address] [place], [address] CBC W/Diff, Automatedon 03-12-2024 Absolute Lymph 1.49 X10 3/uL Normal 0.83-4.[address] [facility] Comment on above: Performed By: #### L 501.9520, L100.0100, L500.2500 ####[facility] [address] [place], [address] Absolute Neut 6.2 X10 3/uL Normal 2.0-7.[address] [facility] Comment on above: Performed By: #### L 501.9520, L100.0100, L500.2500 ####[facility] [address] [place], [address] Basophils/100 WBC (Bld) 0.3 % Normal 0-1 [facility] Comment on above: Performed By: #### L 501.9520, L100.0100, L500.2500 ####[facility] [address] [place], [address] Eosinophils/100 WBC (Bld) 0.1 % Normal 0-[address] [facility] Comment on above: Performed By: #### L 501.9520, L100.0100, L500.2500 ####[facility] [address] [place], [address] Erythrocyte distribution width (RBC) [Ratio] 13.5 % Normal 11.6-14.[address] [facility] Comment on above: Performed By: #### L 501.9520, L100.0100, L500.2500 ####[facility] [address] [place], [address] Hematocrit (Bld) [Volume fraction] 41.8 % Normal 37-[address] [facility] Comment on above: Performed By: #### L 501.9520, L100.0100, L500.2500 ####[facility] [address] [place], [address] Hemoglobin (Bld) [Mass/Vol] 13.6 g/dL Normal 12.0-15.[address] [facility] Comment on above: Performed By: #### L 501.9520, L100.0100, L500.2500 ####[facility] [address] [place], [address] IG% 0.800 Normal 0.0-0.[address] [facility] Comment on above: Result Comment: IG% - Immature Granulocytes (promyelocytes, myelocytes andmetamyelocytes) > 1% indicates that a LEFT SHIFT is Present. Performed By: #### L 501.9520, L100.0100, L500.2500 ####[facility] [address] [place], [address] Lymphocytes/100 WBC (Bld) 18.7 % Low 19-[address] [facility] Comment on above: Performed By: #### L 501.9520, L100.0100, L500.2500 ####[facility] [address] [place], [address] MCH (RBC) [Entitic mass] 28.4 pg Normal 27.0-32.[address] [facility] Comment on above: Performed By: #### L 501.9520, L100.0100, L500.2500 ####[facility] [address] [place], [address] MCHC (RBC) [Mass/Vol] 32.5 g/dL Normal 32-36 [facility] Comment on above: Performed By: #### L 501.9520, L100.0100, L500.2500 ####[facility] [address] [place], [address] MCV (RBC) [Entitic vol] 87.3 fL Normal 81-99 [facility] Comment on above: Performed By: #### L 501.9520, L100.0100, L500.2500 ####[facility] [address] [place], [address] Monocytes/100 WBC (Bld) 2.4 % Normal 0-10 [facility] Comment on above: Performed By: #### L 501.9520, L100.0100, L500.2500 ####[facility] [address] [place], [address] Neutrophils/100 WBC (Bld) 77.7 % High 47-[address] [facility] Comment on above: Performed By: #### L 501.9520, L100.0100, L500.2500 ####[facility] [address] [place], [address] Nucleated RBC (Bld) [#/Vol] 0 10*3/uL Normal 0-[address] [facility] Comment on above: Performed By: #### L 501.9520, L100.0100, L500.2500 ####[facility] [address] [place], [address] Platelet mean volume (Bld) [Entitic vol] 9.4 fL Normal 6.2-12.[address] [facility] Comment on above: Performed By: #### L 501.9520, L100.0100, L500.2500 ####[facility] [address] [place], [address] Platelets (Bld) [#/Vol] 202 10*3/uL Normal 150-[address] [facility] Comment on above: Performed By: #### L 501.9520, L100.0100, L500.2500 ####[facility] [address] [place], [address] RBC (Bld) [#/Vol] 4.79 10*6/uL Normal 4.2-5.4 [facility] Comment on above: Performed By: #### L 501.9520, L100.0100, L500.2500 ####[facility] [address] [place], [address] RDW SD 42.9 fl Normal 35.1-43.[address] [facility] Comment on above: Performed By: #### L 501.9520, L100.0100, L500.2500 ####[facility] [address] [place], [address] WBC (Bld) [#/Vol] 8.0 10*3/uL Normal 4.4-11.0 [facility] Comment on above: Performed By: #### L 501.9520, L100.0100, L500.2500 ####[facility] [address] [place], [address] Serum or plasma thyroid stim ulating hormone (TSH) measurement (units/volume)Ordered By: Tita Winn on 04-04-2024 TSH Qn 0.692 uIU/mL 0.358-3.[address] [facility] TSH QnOrdered By: Tita alfaro on 04-04-2024 Serum or plasma thyroid stimulating hormone (TSH) measurement (units/volume) 0.692 uIU/mL 0.358-3.[address] [facility] Thyroid Stim Hormone (TSH)on 04-04-2024 TSH 0.692 uIU/mL Normal 0.358-3.[address] [facility] Comment on above: Performed By: #### L 501.9520, L100.0100, L500.2500 ####[facility] [address] [place], [address] 12 Lead EKGon 04-03-2024 12 Lead EKG Normal [facility] Base excess Calc (BldV) [Mol es/Vol]Ordered By: Tita Winn on 04-03-2024 Blood base excess determination 1 mmol/L -2-[address] [facility] Basic Metabolic Profile (BMP )on 04-03-2024 BUN/CRE 12.9 RATIO Normal 10-[address] [facility] Comment on above: Performed By: #### L 100.0100, L500.2500 ####[facility] [address] [place], [address] CA,Total 9.3 mg/dL Normal 8.5-10.[address] [facility] Comment on above: Performed By: #### L 100.0100, L500.2500 ####[facility] [address] [place], [address] Chloride [Moles/Vol] 105 mmol/L Normal 98-107 [facility] Comment on above: Performed By: #### L 100.0100, L500.2500 ####[facility] [address] [place], [address] CO2 [Moles/Vol] 27.0 mmol/L Normal 21.0-32.[address] [facility] Comment on above: Performed By: #### L 100.0100, L500.2500 ####[facility] [address] [place], [address] Creatinine [Mass/Vol] 1.32 mg/dL High 0.55-1.02 [facility] Comment on above: Result Comment: The validity of the calculated GFR GFRAA in patients over70 years has not been determined. Clinical correlation isessential. Performed By: #### L 100.0100, L500.2500 ####[facility] [address] [place], [address] ECRCL 53.55 ml/min Normal [facility] Comment on above: Performed By: #### L 100.0100, L500.2500 ####[facility] [address] [place], [address] EST GFR - AA 53 mL/min Low >[address] [facility] Comment on above: Result Comment: Afri can Nauruan GFR Calc Performed By: #### L 100.0100, L500.2500 ####[facility] [address] [place], [address] GAP 5 Normal 5-[address] [facility] Comment on above: Performed By: #### L 100.0100, L500.2500 ####[facility] [address] [place], [address] GFR/1.73 sq M.predicted among non-blacks MDRD (S/P/Bld) [Vol rate/Area] 44 mL/min/{1.73_m2} Low >[address] [facility] Comment on above: Result Comment: Non- GFR Calc Performed By: #### L 100.0100, L500.2500 ####[facility] [address] [place], [address] Glucose [Mass/Vol] 155 mg/dL High 74-106 [facility] Comment on above: Result Comment: Fast ing Glucose result greater than or equal to 126 mg/dLsuggests DIABETES MELLITUS per A.D.A. criteria. Performed By: #### L 100.0100, L500.2500 ####[place] [facility] [address] [place], [address] Potassium [Moles/Vol] 4.4 mmol/L Normal 3.5-5.1 [facility] Comment on above: Performed By: #### L 100.0100, L500.2500 ####[facility] [address] [place], [address] Sodium [Moles/Vol] 137 mmol/L Normal 136-145 [facility] Comment on above: Performed By: #### L 100.0100, L500.2500 ####[facility] [address] [place], [address] Urea nitrogen [Mass/Vol] 17 mg/dL Normal 7-[address] [facility] Comment on above: Performed By: #### L 100.0100, L500.2500 ####[facility] [address] [place], [address] Blood Gases by [facility] 025 Base excess Calc (Bld) [Moles/Vol] 1 mmol/L Normal -2 to +[address] [facility] Comment on above: Performed By: #### L 9000.0800 ####[facility] [address] [place], [address] Blood Gas Type ART Normal [facility] Comment on above: Performed By: #### L 9000.0800 ####[facility] [address] [place], [address] CO2 [Moles/Vol] 28 mmol/L Normal [facility] Comment on above: Performed By: #### L 9000.0800 ####[facility] [address] [place], [address] FI02 2.[address] [facility] Comment on above: Performed By: #### L 9000.0800 ####[facility] [address] [place], [address] HCO3 (Bld) [Moles/Vol] 26.6 mmol/L High 22-26 [facility] Comment on above: Performed By: #### L 9000.0800 ####[facility] [address] [place], [address] Mode Not entered Normal [facility] Comment on above: Performed By: #### L 9000.0800 ####[facility] [address] [place], [address] O2 Delivery Dev Cannula Normal [facility] Comment on above: Performed By: #### L 9000.0800 ####[facility] [address] [place], [address] pCO2 48.6 mmHg High 35-[address] [facility] Comment on above: Performed By: #### L 9000.0800 ####[facility] [address] [place], [address] pH (Bld) 7.35 [pH] Normal 7.35-7.[address] [facility] Comment on above: Performed By: #### L 9000.0800 ####[facility] [address] [place], [address] PO2 74 mmHG Low 75-[address] [facility] Comment on above: Performed By: #### L 9000.0800 ####[facility] [address] [place], [address] SITE Not entered Normal [facility] Comment on above: Performed By: #### L 9000.0800 ####[facility] [address] [place], [address] SO2 94 Low 95-[address] [facility] Comment on above: Performed By: #### L 9000.0800 ####[facility] [address] [place], [address] Blood base excess determinat ionOrdered By: Tita Winn on 04-03-2024 Base excess Calc (BldV) [Moles/Vol] 1 mmol/L -- [facility] Blood bicarbonate measuremen tOrdered By: Tita Winn on 04-03-2024 HCO3 (Bld) [Moles/Vol] 26.6 mmol/L High - [facility] Blood bicarbonate measurement 26.6 mmol/L High - [facility] CBC W/Diff, Automatedon 03-12 Absolute Lymph 2.94 X10 3/uL Normal 0.83-4.[address] [facility] Comment on above: Performed By: #### L 100.0100, L500.2500 ####[facility] [address] [place], [address] Absolute Neut 3.9 X10 3/uL Normal 2.0-7.[address] [facility] Comment on above: Performed By: #### L 100.0100, L500.2500 ####[facility] [address] [place], [address] Basophils/100 WBC (Bld) 0.5 % Normal 0-1 [facility] Comment on above: Performed By: #### L 100.0100, L500.2500 ####[facility] [address] [place], [address] Eosinophils/100 WBC (Bld) 3.3 % Normal 0-[address] [facility] Comment on above: Performed By: #### L 100.0100, L500.2500 ####[facility] [address] [place], [address] Erythrocyte distribution width (RBC) [Ratio] 13.9 % Normal 11.6-14.[address] [facility] Comment on above: Performed By: #### L 100.0100, L500.2500 ####[facility] [address] [place], [address] Hematocrit (Bld) [Volume fraction] 42.3 % Normal 37-[address] [facility] Comment on above: Performed By: #### L 100.0100, L500.2500 ####[facility] [address] [place], [address] Hemoglobin (Bld) [Mass/Vol] 13.5 g/dL Normal 12.0-15.[address] [facility] Comment on above: Performed By: #### L 100.0100, L500.2500 ####[facility] [address] [place], [address] IG% 0.900 Normal 0.0-0.[address] [facility] Comment on above: Result Comment: IG% - Immature Granulocytes (promyelocytes, myelocytes andmetamyelocytes) > 1% indicates that a LEFT SHIFT is Present. Performed By: #### L 100.0100, L500.2500 ####[facility] [address] [place], [address] Lymphocytes/100 WBC (Bld) 37.8 % Normal 19-[address] [facility] Comment on above: Performed By: #### L 100.0100, L500.2500 ####[facility] [address] [place], [address] MCH (RBC) [Entitic mass] 28.3 pg Normal 27.0-32.[address] [facility] Comment on above: Performed By: #### L 100.0100, L500.2500 ####[facility] [address] [place], [address] MCHC (RBC) [Mass/Vol] 31.9 g/dL Low 32-36 [facility] Comment on above: Performed By: #### L 100.0100, L500.2500 ####[facility] [address] [place], [address] MCV (RBC) [Entitic vol] 88.7 fL Normal 81-99 [facility] Comment on above: Performed By: #### L 100.0100, L500.2500 ####[facility] [address] [place], [address] Monocytes/100 WBC (Bld) 8.0 % Normal 0-10 [facility] Comment on above: Performed By: #### L 100.0100, L500.2500 ####[facility] [address] [place], [address] Neutrophils/100 WBC (Bld) 49.5 % Normal 47-[address] [facility] Comment on above: Performed By: #### L 100.0100, L500.2500 ####[facility] [address] [place], [address] Nucleated RBC (Bld) [#/Vol] 0 10*3/uL Normal 0-[address] [facility] Comment on above: Performed By: #### L 100.0100, L500.2500 ####[facility] [address] [place], [address] Platelet mean volume (Bld) [Entitic vol] 9.9 fL Normal 6.2-12.[address] [facility] Comment on above: Performed By: #### L 100.0100, L500.2500 ####[facility] [address] [place], [address] Platelets (Bld) [#/Vol] 211 10*3/uL Normal 150-[address] [facility] Comment on above: Performed By: #### L 100.0100, L500.2500 ####[facility] [address] [place], [address] RBC (Bld) [#/Vol] 4.77 10*6/uL Normal 4.2-5.4 [facility] Comment on above: Performed By: #### L 100.0100, L500.2500 ####[facility] [address] [place], [address] RDW SD 45.1 fl High 35.1-43.[address] [facility] Comment on above: Performed By: #### L 100.0100, L500.2500 ####[facility] [address] [place], [address] WBC (Bld) [#/Vol] 7.8 10*3/uL Normal 4.4-11.0 [facility] Comment on above: Performed By: #### L 100.0100, L500.2500 ####[facility] [address] [place], [address] Chest PA and Lateralon 04-03 Chest PA and Lateral Normal [facility] Determination of fraction of inspired oxygenOrdered By: Tita Winn on 04-03-2024 Determination of fraction of inspired oxygen 2.[address] [facility] Emergency Department Summary on 04-03-2024 Emergency Department Summary Normal [facility] H AND P Exam - Hospitaliston 04-03-2024 H&P Exam - Hospitalist Normal [place] Influenza virus A and B and SARS-CoV-2 (COVID-19) and Respiratory syncytial virus RNAOrdered By: Jcarlos Garcia on 04-03-2024 SARS-CoV-2 (COVID-19) RNA BEAU+probe Ql (Unsp spec) [facility] M100.678on 04-03-2024 M100.678 Pending SARS-CoV-2 (COVID 19) Negative INFLUENZA A Negative INFLUENZA B Negative RSV PCR Negative Normal [facility] Comment on above: Performed By: #### M 100.678 ####[facility] [address] [place], [address] Measurement, pHOrdered By: Rhoda Winn on 04-03-2024 pH (Unsp spec) 7.35 [pH] 7.35-7.[address] [facility] No Panel InformationOrdered By: Tita Winn on 04-03-[address] [facility] Not entered [facility] Cannula [facility] Oxygen saturation measuremen tOrdered By: Tita Winn on 04-03-2024 Oxygen saturation measurement 94 % Low 95-[address] [facility] Partial pressure of carbon d ioxide measurementOrdered By: Tita Winn on 04-03-2024 Partial pressure of carbon dioxide measurement 48.6 mmHg High 35-[address] [facility] Partial pressure of oxygen m easurementOrdered By: Tita Winn on 04-03-2024 Partial pressure of oxygen measurement 74 mmHG Low 75-[address] [facility] RESPIRATORY PANEL MOLECULARo n 04-03-2024 RP PANEL Normal [facility] Comment on above: Performed By: #### M 100.638 ####[facility] [address] [place], [address] Respiratory pathogens DNA an d RNA panel BEAU+probe (Resp)Ordered By: Tita Winn on 04-03-2024 Respiratory pathogens detection panel by molecular detection method Parainfluenza [address] [facility] Respiratory pathogens detect ion panel by molecular detection methodOrdered By: Tita Winn on 04-03-2024 Respiratory pathogens DNA and RNA panel BEAU+probe (Resp) Parainfluenza [address] [facility] Total carbon dioxide measure mentOrdered By: Tita Winn on 04-03-2024 CO2 [Moles/Vol] 28 mmol/L [facility] Total carbon dioxide measurement 28 mmol/L [facility] pH (Unsp spec)Ordered By: Joe Winn on 04-03-2024 Measurement, pH 7.35 7.35-7.[address] [facility] Abdomen WITH IV Contraston 1 04-22-2023 Abdomen WITH IV Contrast Normal [facility] CREATININE FINGERSTICKon Creatinine [Mass/Vol] 1.3 mg/dL High 0.55-1.02 [facility] Comment on above: Performed By: #### L 9100.0200 ####[facility] [address] [place], [address] GFR/1.73 sq M.predicted among non-blacks MDRD (S/P/Bld) [Vol rate/Area] 44.0000 mL/min/{1.73_m2} Low >[address] [facility] Comment on above: Performed By: #### L 9100.0200 ####[facility] [address] [place], [address] Creatinine measurement at be dsideOrdered By: Alan Mack on 02-20-2024 Creatinine measurement at bedside 1.3 mg/dL High 0.55-1.[address] [facility] EGFROrdered By: Alan Aquino ur on 02-20-2024 EGFR 44.0000 mL/min Low >[address] [facility] Internal Medicine Office Vis iton 01-27-2024 Internal Medicine Office Visit Normal [facility] 12 Lead EKGon 01-10-2024 12 Lead EKG Normal [facility] 12 Lead EKG Normal [facility] BNP,B-Type NATRIURETIC PEPTI Audra 01-10-2024 Natriuretic peptide B (Bld) [Mass/Vol] 39.7 pg/mL Normal 0-[address] [facility] Comment on above: Performed By: #### L 503.6620 ####[facility] [address] [place], [address] Basic Metabolic Profile (BMP )on 01-10-2024 BUN/CRE 15.7 RATIO Normal 10-[address] [facility] Comment on above: Order Comment: 1Y Performed By: #### L 501.5425, L100.0100, L500.2500 ####[facility] [address] [place], [address] CA,Total 9.2 mg/dL Normal 8.5-10.[address] [facility] Comment on above: Order Comment: 1Y Performed By: #### L 501.5425, L100.0100, L500.2500 ####[facility] [address] [place], [address] Chloride [Moles/Vol] 106 mmol/L Normal 98-107 [facility] Comment on above: Order Comment: 1Y Performed By: #### L 501.5425, L100.0100, L500.2500 ####[facility] [address] [place], [address] CO2 [Moles/Vol] 26.0 mmol/L Normal 21.0-32.[address] [facility] Comment on above: Order Comment: 1Y Performed By: #### L 501.5425, L100.0100, L500.2500 ####[facility] [address] [place], [address] Creatinine [Mass/Vol] 1.40 mg/dL High 0.55-1.02 [facility] Comment on above: Order Comment: 1Y Result Comment: The validity of the calculated GFR GFRAA in patients over70 years has not been determined. Clinical correlation isessential. Performed By: #### L 501.5425, L100.0100, L500.2500 ####[facility] [address] [place], [address] ECRCL 49.39 ml/min Normal [facility] Comment on above: Order Comment: 1Y Performed By: #### L 501.5425, L100.0100, L500.2500 ####[facility] [facility] [address] [place], [address] EST GFR - AA 50 mL/min Low >[address] [facility] Comment on above: Order Comment: 1Y Result Comment: Afri can Nauruan GFR Calc Performed By: #### L 501.5425, L100.0100, L500.2500 ####[facility] [address] [place], [address] GAP 6 Normal 5-[address] [facility] Comment on above: Order Comment: 1Y Performed By: #### L 501.5425, L100.0100, L500.2500 ####[facility] [address] [place], [address] GFR/1.73 sq M.predicted among non-blacks MDRD (S/P/Bld) [Vol rate/Area] 41 mL/min/{1.73_m2} Low >[address] [facility] Comment on above: Order Comment: 1Y Result Comment: Non- GFR Calc Performed By: #### L 501.5425, L100.0100, L500.2500 ####[facility] [address] [place], [address] Glucose [Mass/Vol] 221 mg/dL High 74-106 [facility] Comment on above: Order Comment: 1Y Result Comment: Gluc ose result greater than or equal to 200 mg/dLsuggests DIABETES MELLITUS per A.D.A. criteria. Performed By: #### L 501.5425, L100.0100, L500.2500 ####[facility] [address] [place], [address] Potassium [Moles/Vol] 3.7 mmol/L Normal 3.5-5.1 [facility] Comment on above: Order Comment: 1Y Performed By: #### L 501.5425, L100.0100, L500.2500 ####[facility] [address] [place], [address] Sodium [Moles/Vol] 139 mmol/L Normal 136-145 [facility] Comment on above: Order Comment: 1Y Performed By: #### L 501.5425, L100.0100, L500.2500 ####[facility] [address] [place], [address] Urea nitrogen [Mass/Vol] 22 mg/dL High 7-[address] [facility] Comment on above: Order Comment: 1Y Performed By: #### L 501.5425, L100.0100, L500.2500 ####[facility] [address] [place], [address] CBC W/Diff, Automatedon 11-0 Absolute Lymph 4.09 X10 3/uL Normal 0.83-4.[address] [facility] Comment on above: Performed By: #### L 501.5425, L100.0100, L500.2500 ####[facility] [address] [place], [address] Absolute Neut 7.0 X10 3/uL Normal 2.0-7.[address] [facility] Comment on above: Performed By: #### L 501.5425, L100.0100, L500.2500 ####[facility] [address] [place], [address] Basophils/100 WBC (Bld) 0.5 % Normal 0-1 [facility] Comment on above: Performed By: #### L 501.5425, L100.0100, L500.2500 ####[facility] [address] [place], [address] Eosinophils/100 WBC (Bld) 2.2 % Normal 0-[address] [facility] Comment on above: Performed By: #### L 501.5425, L100.0100, L500.2500 ####[facility] [address] [place], [address] Erythrocyte distribution width (RBC) [Ratio] 13.7 % Normal 11.6-14.[address] [facility] Comment on above: Performed By: #### L 501.5425, L100.0100, L500.2500 ####[facility] [address] [place], [address] Hematocrit (Bld) [Volume fraction] 38.8 % Normal 37-[address] [facility] Comment on above: Performed By: #### L 501.5425, L100.0100, L500.2500 ####[facility] [address] [place], [address] Hemoglobin (Bld) [Mass/Vol] 12.7 g/dL Normal 12.0-15.[address] [facility] Comment on above: Performed By: #### L 501.5425, L100.0100, L500.2500 ####[facility] [address] [place], [address] IG% 0.800 Normal 0.0-0.[address] [facility] Comment on above: Result Comment: IG% - Immature Granulocytes (promyelocytes, myelocytes andmetamyelocytes) > 1% indicates that a LEFT SHIFT is Present. Performed By: #### L 501.5425, L100.0100, L500.2500 ####[facility] [address] [place], [address] Lymphocytes/100 WBC (Bld) 33.7 % Normal 19-[address] [facility] Comment on above: Performed By: #### L 501.5425, L100.0100, L500.2500 ####[facility] [address] [place], [address] MCH (RBC) [Entitic mass] 29.1 pg Normal 27.0-32.[address] [facility] Comment on above: Performed By: #### L 501.5425, L100.0100, L500.2500 ####[facility] [address] [place], [address] MCHC (RBC) [Mass/Vol] 32.7 g/dL Normal 32-36 [facility] Comment on above: Performed By: #### L 501.5425, L100.0100, L500.2500 ####[facility] [address] [place], [address] MCV (RBC) [Entitic vol] 89.0 fL Normal 81-99 [facility] Comment on above: Performed By: #### L 501.5425, L100.0100, L500.2500 ####[facility] [address] [place], [address] Monocytes/100 WBC (Bld) 5.2 % Normal 0-10 [facility] Comment on above: Performed By: #### L 501.5425, L100.0100, L500.2500 ####[facility] [address] [place], [address] Neutrophils/100 WBC (Bld) 57.6 % Normal 47-[address] [facility] Comment on above: Performed By: #### L 501.5425, L100.0100, L500.2500 ####[facility] [address] [place], [address] Nucleated RBC (Bld) [#/Vol] 0 10*3/uL Normal 0-[address] [facility] Comment on above: Performed By: #### L 501.5425, L100.0100, L500.2500 ####[facility] [address] [place], [address] Platelet mean volume (Bld) [Entitic vol] 9.7 fL Normal 6.2-12.[address] [facility] Comment on above: Performed By: #### L 501.5425, L100.0100, L500.2500 ####[facility] [address] [place], [address] Platelets (Bld) [#/Vol] 281 10*3/uL Normal 150-[address] [facility] Comment on above: Performed By: #### L 501.5425, L100.0100, L500.2500 ####[facility] [address] [place], [address] RBC (Bld) [#/Vol] 4.36 10*6/uL Normal 4.2-5.4 [facility] Comment on above: Performed By: #### L 501.5425, L100.0100, L500.2500 ####[facility] [address] [place], [address] RDW SD 44.2 fl High 35.1-43.[address] [facility] Comment on above: Performed By: #### L 501.5425, L100.0100, L500.2500 ####[facility] [address] [place], [address] WBC (Bld) [#/Vol] 12.2 10*3/uL High 4.4-11.0 [facility] Comment on above: Performed By: #### L 501.5425, L100.0100, L500.2500 ####[facility] [address] [place], [address] Emergency Department Summary on 01-10-2024 Emergency Department Summary Normal [facility] L501.4020on 01-10-2024 TROPONIN-I HS 6 pg/mL Normal 3.0-54.[address] [facility] Comment on above: Result Comment: Plea se Note: New Test Units and Gender Specific Reference Ranges. For more information see Policy Stat Procedure [place] High Sensitivity Troponin (TNIH) and attachments. Performed By: #### L 501.4020 ####[facility] [address] [place], [address] L501.5425on 01-10-2024 TROPONIN-I HS 4 pg/mL Normal 3.0-54.[address] [facility] Comment on above: Order Comment: 1Y Result Comment: Plea se Note: New Test Units and Gender Specific Reference Ranges. For more information see Policy Stat Procedure [place] High Sensitivity Troponin (TNIH) and attachments. Performed By: #### L 501.5425, L100.0100, L500.2500 ####[facility] [address] [place], [address] Ribs Uni Min 3V w/PA Cheston 01-10-2024 Ribs Uni Min 3V w/PA Chest Normal [facility] Pacemaker Checkon 12-09-2023 Pacemaker Check Normal [facility] 12 Lead EKGon 12-04-2023 12 Lead EKG Normal [facility] Basic Metabolic Profile (BMP )on 12-04-2023 BUN/CRE 12.9 RATIO Normal 10-[address] [facility] Comment on above: Order Comment: 1Y Performed By: #### L 501.5425, L100.0100, L500.2500 ####[facility] [address] [place], [address] CA,Total 8.8 mg/dL Normal 8.5-10.[address] [facility] Comment on above: Order Comment: 1Y Performed By: #### L 501.5425, L100.0100, L500.2500 ####[facility] [address] [place], [address] Chloride [Moles/Vol] 109 mmol/L High 98-107 [facility] Comment on above: Order Comment: 1Y Performed By: #### L 501.5425, L100.0100, L500.2500 ####[facility] [address] [place], [address] CO2 [Moles/Vol] 25.0 mmol/L Normal 21.0-32.[address] [facility] Comment on above: Order Comment: 1Y Performed By: #### L 501.5425, L100.0100, L500.2500 ####[facility] [address] [place], [address] Creatinine [Mass/Vol] 1.32 mg/dL High 0.55-1.02 [facility] Comment on above: Order Comment: 1Y Result Comment: The validity of the calculated GFR GFRAA in patients over70 years has not been determined. Clinical correlation isessential. Performed By: #### L 501.5425, L100.0100, L500.2500 ####[facility] [address] [place], [address] EST GFR - AA 53 mL/min Low >[address] [facility] Comment on above: Order Comment: 1Y Result Comment: Afri can Nauruan GFR Calc Performed By: #### L 501.5425, L100.0100, L500.2500 ####[facility] [address] [place], [address] GAP 5 Normal 5-[address] [facility] Comment on above: Order Comment: 1Y Performed By: #### L 501.5425, L100.0100, L500.2500 ####[facility] [address] [place], [address] GFR/1.73 sq M.predicted among non-blacks MDRD (S/P/Bld) [Vol rate/Area] 44 mL/min/{1.73_m2} Low >[address] [facility] Comment on above: Order Comment: 1Y Result Comment: Non- GFR Calc Performed By: #### L 501.5425, L100.0100, L500.2500 ####[facility] [address] [place], [address] Glucose [Mass/Vol] 165 mg/dL High 74-106 [facility] Comment on above: Order Comment: 1Y Result Comment: Fast ing Glucose result greater than or equal to 126 mg/dLsuggests DIABETES MELLITUS per A.D.A. criteria. Performed By: #### L 501.5425, L100.0100, L500.2500 ####[facility] [address] [place], [address] Potassium [Moles/Vol] 3.9 mmol/L Normal 3.5-5.1 [facility] Comment on above: Order Comment: 1Y Performed By: #### L 501.5425, L100.0100, L500.2500 ####[facility] [address] [place], [address] Sodium [Moles/Vol] 140 mmol/L Normal 136-145 [facility] Comment on above: Order Comment: 1Y Performed By: #### L 501.5425, L100.0100, L500.2500 ####[facility] [address] [place], [address] Urea nitrogen [Mass/Vol] 17 mg/dL Normal 7-[address] [facility] Comment on above: Order Comment: 1Y Performed By: #### L 501.5425, L100.0100, L500.2500 ####[facility] [address] [place], [address] CBC W/Diff, Automatedon 09-2 -2023 Absolute Lymph 3.63 X10 3/uL Normal 0.83-4.[address] [facility] Comment on above: Performed By: #### L 501.5425, L100.0100, L500.2500 ####[facility] [address] [place], [address] Absolute Neut 5.7 X10 3/uL Normal 2.0-7.[address] [facility] Comment on above: Performed By: #### L 501.5425, L100.0100, L500.2500 ####[facility] [address] [place], [address] Basophils/100 WBC (Bld) 0.4 % Normal 0-1 [facility] Comment on above: Performed By: #### L 501.5425, L100.0100, L500.2500 ####[facility] [address] [place], [address] Eosinophils/100 WBC (Bld) 4.4 % Normal 0-[address] [facility] Comment on above: Performed By: #### L 501.5425, L100.0100, L500.2500 ####[facility] [address] [place], [address] Erythrocyte distribution width (RBC) [Ratio] 13.8 % Normal 11.6-14.[address] [facility] Comment on above: Performed By: #### L 501.5425, L100.0100, L500.2500 ####[facility] [address] [place], [address] Hematocrit (Bld) [Volume fraction] 39.6 % Normal 37-[address] [facility] Comment on above: Performed By: #### L 501.5425, L100.0100, L500.2500 ####[facility] [address] [place], [address] Hemoglobin (Bld) [Mass/Vol] 12.7 g/dL Normal 12.0-15.[address] [facility] Comment on above: Performed By: #### L 501.5425, L100.0100, L500.2500 ####[facility] [address] [place], [address] IG% 0.800 Normal 0.0-0.[address] [facility] Comment on above: Result Comment: IG% - Immature Granulocytes (promyelocytes, myelocytes andmetamyelocytes) > 1% indicates that a LEFT SHIFT is Present. Performed By: #### L 501.5425, L100.0100, L500.2500 ####[facility] [address] [place], [address] Lymphocytes/100 WBC (Bld) 34.5 % Normal 19-[address] [facility] Comment on above: Performed By: #### L 501.5425, L100.0100, L500.2500 ####[facility] [address] [place], [address] MCH (RBC) [Entitic mass] 28.2 pg Normal 27.0-32.[address] [facility] Comment on above: Performed By: #### L 501.5425, L100.0100, L500.2500 ####[facility] [address] [place], [address] MCHC (RBC) [Mass/Vol] 32.1 g/dL Normal 32-36 [facility] Comment on above: Performed By: #### L 501.5425, L100.0100, L500.2500 ####[facility] [address] [place], [address] MCV (RBC) [Entitic vol] 88.0 fL Normal 81-99 [facility] Comment on above: Performed By: #### L 501.5425, L100.0100, L500.2500 ####[facility] [address] [place], [address] Monocytes/100 WBC (Bld) 5.5 % Normal 0-10 [facility] Comment on above: Performed By: #### L 501.5425, L100.0100, L500.2500 ####[facility] [address] [place], [address] Neutrophils/100 WBC (Bld) 54.4 % Normal 47-[address] [facility] Comment on above: Performed By: #### L 501.5425, L100.0100, L500.2500 ####[facility] [address] [place], [address] Nucleated RBC (Bld) [#/Vol] 0 10*3/uL Normal 0-[address] [facility] Comment on above: Performed By: #### L 501.5425, L100.0100, L500.2500 ####[facility] [address] [place], [address] Platelet mean volume (Bld) [Entitic vol] 9.2 fL Normal 6.2-12.[address] [facility] Comment on above: Performed By: #### L 501.5425, L100.0100, L500.2500 ####[facility] [address] [place], [address] Platelets (Bld) [#/Vol] 258 10*3/uL Normal 150-[address] [facility] Comment on above: Performed By: #### L 501.5425, L100.0100, L500.2500 ####[facility] [address] [place], [address] RBC (Bld) [#/Vol] 4.50 10*6/uL Normal 4.2-5.4 [facility] Comment on above: Performed By: #### L 501.5425, L100.0100, L500.2500 ####[facility] [address] [place], [address] RDW SD 44.3 fl High 35.1-43.[address] [facility] Comment on above: Performed By: #### L 501.5425, L100.0100, L500.2500 ####[facility] [address] [place], [address] WBC (Bld) [#/Vol] 10.5 10*3/uL Normal 4.4-11.0 [facility] Comment on above: Performed By: #### L 501.5425, L100.0100, L500.2500 ####[facility] [address] [place], [address] CTA Chest W/WO Contraston CTA Chest W/WO Contrast Normal [facility] Chest 1 View (Portable)on Chest 1 View (Portable) Normal [facility] Emergency Department Summary on 12-04-2023 Emergency Department Summary Normal [facility] L501.5425on 12-04-2023 TROPONIN-I HS 5 pg/mL Normal 3.0-54.[address] [facility] Comment on above: Order Comment: 1Y Result Comment: Plea se Note: New Test Units and Gender Specific Reference Ranges. For more information see Policy Stat Procedure [place] High Sensitivity Troponin (TNIH) and attachments. Performed By: #### L 501.5425, L100.0100, L500.2500 ####[facility] [address] [place], [address] TXT:Device Implant / Explant on 12-02-2023 TXT:Device Implant / Explant Normal [facility] Oncology Visit Reporton Oncology Visit Report Normal [facility] Basic Metabolic Profile (BMP )on 11-12-2023 BUN/CRE 18.6 RATIO Normal 10-[address] [facility] Comment on above: Performed By: #### L 500.2500 ####[facility] [address] [place], [address] CA,Total 9.0 mg/dL Normal 8.5-10.[address] [facility] Comment on above: Performed By: #### L 500.2500 ####[facility] [address] [place], [address] Chloride [Moles/Vol] 106 mmol/L Normal 98-107 [facility] Comment on above: Performed By: #### L 500.2500 ####[facility] [address] [place], [address] CO2 [Moles/Vol] 26.0 mmol/L Normal 21.0-32.[address] [facility] Comment on above: Performed By: #### L 500.2500 ####[facility] [address] [place], [address] Creatinine [Mass/Vol] 1.45 mg/dL High 0.55-1.02 [facility] Comment on above: Result Comment: The validity of the calculated GFR GFRAA in patients over70 years has not been determined. Clinical correlation isessential. Performed By: #### L 500.2500 ####[facility] [address] [place], [address] EST GFR - AA 48 mL/min Low >[address] [facility] Comment on above: Result Comment: Afri can Nauruan GFR Calc Performed By: #### L 500.2500 ####[facility] [address] [place], [address] GAP 4 Low 5-[address] [facility] Comment on above: Performed By: #### L 500.2500 ####[facility] [address] [place], [address] GFR/1.73 sq M.predicted among non-blacks MDRD (S/P/Bld) [Vol rate/Area] 39 mL/min/{1.73_m2} Low >[address] [facility] Comment on above: Result Comment: Non- GFR Calc Performed By: #### L 500.2500 ####[facility] [address] [place], [address] Glucose [Mass/Vol] 116 mg/dL High 74-106 [facility] Comment on above: Result Comment: Fast ing Glucose result from 100 to 125 mg/dLsuggests IMPAIRED HOMEOSTASIS per A.D.A. criteria. Performed By: #### L 500.2500 ####[facility] [address] [place], [address] Potassium [Moles/Vol] 5.1 mmol/L Normal 3.5-5.1 [facility] Comment on above: Performed By: #### L 500.2500 ####[facility] [address] [place], [address] Sodium [Moles/Vol] 136 mmol/L Normal 136-145 [facility] Comment on above: Performed By: #### L 500.2500 ####[facility] [address] [place], [address] Urea nitrogen [Mass/Vol] 27 mg/dL High 7-[address] [facility] Comment on above: Performed By: #### L 500.2500 ####[facility] [address] [place], [address] CT Abd/Pelvis W/WO Contrasto n 11-12-2023 CT Abd/Pelvis W/WO Contrast Normal [facility] Low Dose CT Lung Screeningon 11-12-[address] Lung Screening Normal [facility] Oncology Visit Reporton Oncology Visit Report Normal [facility] SCRN MAMM (CAD)W/LUCY BILATo n 11-12-2023 SCRN MAMM (CAD)W/LUCY BILAT Normal [facility] PT D/C Summary (1)on 024 PT D/C Summary (1) Normal [facility] Bilirubin, Directon 11-04-19 24 Bilirubin.direct [Mass/Vol] 0.05 mg/dL Normal 0.00-0.[address] [facility] Comment on above: Performed By: #### L 501.4700, L500.4100, L100.0100, L500.4050 ####[facility] [address] [place], [address] CBC W/Diff, Automatedon 10-10 Absolute Lymph 4.24 X10 3/uL Normal 0.83-4.[address] [facility] Comment on above: Performed By: #### L 501.4700, L500.4100, L100.0100, L500.4050 ####[facility] [address] [place], [address] Absolute Neut 7.6 X10 3/uL Normal 2.0-7.[address] [facility] Comment on above: Performed By: #### L 501.4700, L500.4100, L100.0100, L500.4050 ####[facility] [address] [place], [address] Basophils/100 WBC (Bld) 0.5 % Normal 0-1 [facility] Comment on above: Performed By: #### L 501.4700, L500.4100, L100.0100, L500.4050 ####[facility] [address] [place], [address] Eosinophils/100 WBC (Bld) 1.9 % Normal 0-[address] [facility] Comment on above: Performed By: #### L 501.4700, L500.4100, L100.0100, L500.4050 ####[facility] [address] [place], [address] Erythrocyte distribution width (RBC) [Ratio] 13.9 % Normal 11.6-14.[address] [facility] Comment on above: Performed By: #### L 501.4700, L500.4100, L100.0100, L500.4050 ####[facility] [address] [place], [address] Hematocrit (Bld) [Volume fraction] 43.0 % Normal 37-[address] [facility] Comment on above: Performed By: #### L 501.4700, L500.4100, L100.0100, L500.4050 ####[facility] [address] [place], [address] Hemoglobin (Bld) [Mass/Vol] 14.0 g/dL Normal 12.0-15.[address] [facility] Comment on above: Performed By: #### L 501.4700, L500.4100, L100.0100, L500.4050 ####[facility] [address] [place], [address] IG% 0.500 Normal 0.0-0.[address] [facility] Comment on above: Result Comment: IG% - Immature Granulocytes (promyelocytes, myelocytes andmetamyelocytes) > 1% indicates that a LEFT SHIFT is Present. Performed By: #### L 501.4700, L500.4100, L100.0100, L500.4050 ####[facility] [address] [place], [address] Lymphocytes/100 WBC (Bld) 32.3 % Normal 19-[address] [facility] Comment on above: Performed By: #### L 501.4700, L500.4100, L100.0100, L500.4050 ####[facility] [address] [place], [address] MCH (RBC) [Entitic mass] 29.2 pg Normal 27.0-32.[address] [facility] Comment on above: Performed By: #### L 501.4700, L500.4100, L100.0100, L500.4050 ####[facility] [address] [place], [address] MCHC (RBC) [Mass/Vol] 32.6 g/dL Normal 32-36 [facility] Comment on above: Performed By: #### L 501.4700, L500.4100, L100.0100, L500.4050 ####[facility] [address] [place], [address] MCV (RBC) [Entitic vol] 89.6 fL Normal 81-99 [facility] Comment on above: Performed By: #### L 501.4700, L500.4100, L100.0100, L500.4050 ####[facility] [address] [place], [address] Monocytes/100 WBC (Bld) 7.3 % Normal 0-10 [facility] Comment on above: Performed By: #### L 501.4700, L500.4100, L100.0100, L500.4050 ####[facility] [address] [place], [address] Neutrophils/100 WBC (Bld) 57.5 % Normal 47-[address] [facility] Comment on above: Performed By: #### L 501.4700, L500.4100, L100.0100, L500.4050 ####[facility] [address] [place], [address] Nucleated RBC (Bld) [#/Vol] 0 10*3/uL Normal 0-[address] [facility] Comment on above: Performed By: #### L 501.4700, L500.4100, L100.0100, L500.4050 ####[facility] [address] [place], [address] Platelet mean volume (Bld) [Entitic vol] 9.4 fL Normal 6.2-12.[address] [facility] Comment on above: Performed By: #### L 501.4700, L500.4100, L100.0100, L500.4050 ####[facility] [address] [place], [address] Platelets (Bld) [#/Vol] 239 10*3/uL Normal 150-[address] [facility] Comment on above: Performed By: #### L 501.4700, L500.4100, L100.0100, L500.4050 ####[facility] [address] [place], [address] RBC (Bld) [#/Vol] 4.80 10*6/uL Normal 4.2-5.4 [facility] Comment on above: Performed By: #### L 501.4700, L500.4100, L100.0100, L500.4050 ####[facility] [address] [place], [address] RDW SD 45.4 fl High 35.1-43.[address] [facility] Comment on above: Performed By: #### L 501.4700, L500.4100, L100.0100, L500.4050 ####[facility] [address] [place], [address] WBC (Bld) [#/Vol] 13.1 10*3/uL High 4.4-11.0 [facility] Comment on above: Performed By: #### L 501.4700, L500.4100, L100.0100, L500.4050 ####[facility] [address] [place], [address] Comprehensive Metabolic Prof [facility] 11-04-2023 Albumin [Mass/Vol] 3.8 g/dL Normal 3.2-5.0 [facility] Comment on above: Performed By: #### L 501.4700, L500.4100, L100.0100, L500.4050 ####[facility] [address] [place], [address] Albumin/Globulin [Mass ratio] 1.0 {ratio} Normal 0.9-2.[address] [facility] Comment on above: Performed By: #### L 501.4700, L500.4100, L100.0100, L500.4050 ####[facility] [address] [place], [address] ALK P 75 U/L Normal 45-[address] [facility] Comment on above: Performed By: #### L 501.4700, L500.4100, L100.0100, L500.4050 ####[facility] [address] [place], [address] ALT [Catalytic activity/Vol] 26 U/L Normal 13-[address] [facility] Comment on above: Performed By: #### L 501.4700, L500.4100, L100.0100, L500.4050 ####[facility] [address] [place], [address] AST [Catalytic activity/Vol] 18 U/L Normal 15-[address] [facility] Comment on above: Performed By: #### L 501.4700, L500.4100, L100.0100, L500.4050 ####[facility] [address] [place], [address] Bilirubin [Mass/Vol] 0.40 mg/dL Normal 0.20-1.00 [facility] Comment on above: Result Comment: For patients on eltrombopag therapy, use of Dimension [place] TBIL is not recommended. Performed By: #### L 501.4700, L500.4100, L100.0100, L500.4050 ####[facility] [address] [place], [address] BUN/CRE 19.5 RATIO Normal 10-[address] [facility] Comment on above: Performed By: #### L 501.4700, L500.4100, L100.0100, L500.4050 ####[facility] [address] [place], [address] CA,Total 9.4 mg/dL Normal 8.5-10.[address] [facility] Comment on above: Performed By: #### L 501.4700, L500.4100, L100.0100, L500.4050 ####[facility] [address] [place], [address] Chloride [Moles/Vol] 109 mmol/L High 98-107 [facility] Comment on above: Performed By: #### L 501.4700, L500.4100, L100.0100, L500.4050 ####[facility] [address] [facility] [address] CO2 [Moles/Vol] 21.0 mmol/L Normal 21.0-32.[address] [facility] Comment on above: Performed By: #### L 501.4700, L500.4100, L100.0100, L500.4050 ####[facility] [address] [place], [address] Creatinine [Mass/Vol] 1.64 mg/dL High 0.55-1.02 [facility] Comment on above: Result Comment: The validity of the calculated GFR GFRAA in patients over70 years has not been determined. Clinical correlation isessential. Performed By: #### L 501.4700, L500.4100, L100.0100, L500.4050 ####[facility] [address] [place], [address] EST GFR - AA 41 mL/min Low >[address] [facility] Comment on above: Result Comment: Afri can Nauruan GFR Calc Performed By: #### L 501.4700, L500.4100, L100.0100, L500.4050 ####[facility] [address] [place], [address] GAP 8 Normal 5-[address] [facility] Comment on above: Performed By: #### L 501.4700, L500.4100, L100.0100, L500.4050 ####[facility] [address] [place], [address] GFR/1.73 sq M.predicted among non-blacks MDRD (S/P/Bld) [Vol rate/Area] 34 mL/min/{1.73_m2} Low >[address] [facility] Comment on above: Result Comment: Non- GFR Calc Performed By: #### L 501.4700, L500.4100, L100.0100, L500.4050 ####[facility] [address] [place], [address] Globulin (S) [Mass/Vol] 4.0 g/dL Normal 2.2-4.2 [facility] Comment on above: Performed By: #### L 501.4700, L500.4100, L100.0100, L500.4050 ####[facility] [address] [place], [address] Glucose [Mass/Vol] 109 mg/dL High 74-106 [facility] Comment on above: Result Comment: Fast ing Glucose result from 100 to 125 mg/dLsuggests IMPAIRED HOMEOSTASIS per A.D.A. criteria. Performed By: #### L 501.4700, L500.4100, L100.0100, L500.4050 ####[facility] [address] [place], [address] Potassium [Moles/Vol] 5.5 mmol/L High 3.5-5.1 [facility] Comment on above: Performed By: #### L 501.4700, L500.4100, L100.0100, L500.4050 ####[facility] [address] [place], [address] Sodium [Moles/Vol] 138 mmol/L Normal 136-145 [facility] Comment on above: Performed By: #### L 501.4700, L500.4100, L100.0100, L500.4050 ####[facility] [address] [place], [address] T PROT 7.8 g/dL Normal 6.4-8.[address] [facility] Comment on above: Performed By: #### L 501.4700, L500.4100, L100.0100, L500.4050 ####[facility] [address] [place], [address] Urea nitrogen [Mass/Vol] 32 mg/dL High 7-[address] [facility] Comment on above: Performed By: #### L 501.4700, L500.4100, L100.0100, L500.4050 ####[facility] [address] [place], [address] Internal Medicine Office Vis iton 11-04-2023 Internal Medicine Office Visit Normal [facility] Lipid Profileon 11-04-2023 Cholesterol [Mass/Vol] 175 mg/dL Normal 200 [place] Comment on above: Result Comment: <200 mg/dL Desirable 200-240 mg/dL Borderline >240 mg/dL High Risk Performed By: #### L 501.4700, L500.4100, L100.0100, L500.4050 ####[facility] [address] [place], [address] Cholesterol in HDL [Mass/Vol] 39 mg/dL Low [facility] Comment on above: Result Comment: The drugs N-Acetylcysteine and Metamizole may falselydepress this assay. Reference Range HDL <40 mg/dL Low HDL Cholesterol HDL >or= 60 mg/dL High HDL Cholesterol Performed By: #### L 501.4700, L500.4100, L100.0100, L500.4050 ####[facility] [address] [place], [address] Cholesterol in LDL [Mass/Vol] 99 mg/dL Normal 0-[address] [facility] Comment on above: Performed By: #### L 501.4700, L500.4100, L100.0100, L500.4050 ####[facility] [address] [place], [address] Cholesterol in VLDL [Mass/Vol] 37 mg/dL Normal 5-[address] [facility] Comment on above: Performed By: #### L 501.4700, L500.4100, L100.0100, L500.4050 ####[facility] [address] [place], [address] Triglyceride [Mass/Vol] 185 mg/dL Normal [facility] Comment on above: Result Comment: The drugs N-Acetylcysteine and Metamizole may falselydepress this assay.Serum Triglycerides Reference Interval Normal <150 mg/dL Borderline high 150 - 199 mg/dL High 200 - 499 mg/dL Very High > or = 500 mg/dL Performed By: #### L 501.4700, L500.4100, L100.0100, L500.4050 ####[facility] [address] [place], [address] Liver Profileon 11-04-2023 ALB Normal 3.2-5.[address] [facility] Comment on above: Result Comment: DUPL ICATE Performed By: #### L 500.3400 ####[facility] [address] [place], [address] ALK P Normal 45-[address] [facility] Comment on above: Result Comment: DUPL ICATE Performed By: #### L 500.3400 ####[facility] [address] [place], [address] ALT Normal 13-[address] [facility] Comment on above: Result Comment: DUPL ICATE Performed By: #### L 500.3400 ####[facility] [address] [place], [address] AST Normal 15-[address] [facility] Comment on above: Result Comment: DUPL ICATE Performed By: #### L 500.3400 ####[facility] [address] [place], [address] D BILI Normal 0.00-0.[address] [facility] Comment on above: Result Comment: DUPL ICATE Performed By: #### L 500.3400 ####[facility] [address] [place], [address] T BILI Normal 0.20-1.[address] [facility] Comment on above: Result Comment: DUPL ICATE Performed By: #### L 500.3400 ####[facility] [address] [place], [address] T PROT Normal 6.4-8.[address] [facility] Comment on above: Result Comment: DUPL ICATE Performed By: #### L 500.3400 ####[facility] [address] [place], [address] Ankle min 3 Viewson 10-25-19 24 Ankle min 3 Views Normal [facility] Orthopedic Visit Reporton Orthopedic Visit Report Normal [facility] Thoracic Spine 3 Viewson Thoracic Spine 3 Views Normal [place] Absolute lymphocyte countOrd ered By: Panda Rowe on 07-12-2023 Lymphocytes Auto (Unsp spec) [#/Vol] 4.63 10*3/uL 0.83-4.[address] [facility] Automated lymphocyte count a s percentage of total leukocytesOrdered By: Panda Rowe on 07-12-2023 Lymphocytes/100 WBC Auto (Unsp spec) 41.9 % 19-[address] [facility] Basophil percentageOrdered B y: Panda Rowe on 07-12-2023 Basophils/100 WBC (Bld) 0.5 % 0-1 [facility] Chloride [Moles/Vol] 105 mmol/L 98-107 [facility] Eosinophils/100 WBC (Bld) 2.6 % 0-[address] [facility] Glucose [Mass/Vol] 118 mg/dL 74-106 [facility] Comment on above: Fasting Glucose resu lt from 100 to 125 mg/dL suggests IMPAIRED HOMEOSTASIS per A.D.A. criteria. Hemoglobin (Bld) [Mass/Vol] 11.9 g/dL 12.0-15.[address] [facility] Monocytes/100 WBC (Bld) 6.3 % 0-10 [facility] Neutrophils (Bld) [#/Vol] 5.3 10*3/uL 2.0-7.[address] [facility] Neutrophils/100 WBC (Bld) 48.2 % 47-[address] [facility] Potassium [Moles/Vol] 3.6 mmol/L 3.5-5.1 [facility] Sodium [Moles/Vol] 139 mmol/L 136-145 [facility] WBC (Bld) [#/Vol] 11.1 10*3/uL 4.4-11.0 [facility] Determination of erythrocyte mean corpuscular volume (MCV)Ordered By: Panda Rowe on 07-12-2023 MCV (RBC) [Entitic vol] 88.0 fL 81-99 [facility] Erythrocyte distribution wid th ratioOrdered By: Panda Rowe on 07-12-2023 Erythrocyte distribution width (RBC) [Ratio] 14.3 % 11.6-14.[address] [facility] Erythrocyte distribution wid th standard deviationOrdered By: Panda Rowe on 07-12-2023 Erythrocyte distribution width (RBC) [Entitic vol] 46.2 fL 35.1-43.[address] [facility] Hematocrit Auto (Bld) [Volum e fraction]Ordered By: Panda Rowe on 07-12-2023 Hematocrit (Bld) [Volume fraction] 36.6 % 37-[address] [facility] Immature granulocytes/100 WB C Auto (Bld)Ordered By: Panda Rowe on 07-12-2023 Immature granulocytes/100 WBC (Bld) 0.500 % 0.0-0.[address] [facility] Comment on above: IG% - Immature Granu locytes (promyelocytes, myelocytes and metamyelocytes) > 1% indicates that a LEFT SHIFT is Present. Laboratory - Chemistry and C hemistry - challengeOrdered By: Panda Rowe on 07-12-2023 CO2 [Moles/Vol] 30.0 mmol/L 21.0-32.[address] [facility] Urea nitrogen/Creatinine [Mass ratio] 15.6 mg/mg 10-[address] [facility] Laboratory - Hematology and Cell countsOrdered By: Panda Rowe on 07-12-2023 MCH (RBC) [Entitic mass] 28.6 pg 27.0-32.[address] [facility] MCHC (RBC) [Mass/Vol] 32.5 g/dL 32-36 [facility] Nucleated RBC/100 WBC (Bld) [Ratio] 0 % 0-[address] [facility] Platelet mean volume (Bld) [Entitic vol] 9.5 fL 6.2-12.[address] [facility] Platelets (Bld) [#/Vol] 204 10*3/uL 150-[address] [facility] No Panel InformationOrdered By: Panda Rowe on 07-12-2023 Estimated Creatinine Clearance Calc 60.03 ml/min [facility] Estimated GFR (MDRD) Amer 66 mL/min >[address] [facility] Comment on above: GFR Calc Estimated GFR (MDRD) Non-Af Amer 55 mL/min >[address] [facility] Comment on above: Non- GFR Calc Troponin I High Sensitivity 5 pg/mL 3.0-54.[address] [facility] Comment on above: Please Note: New [place] t Units and Gender Specific Reference Ranges. For more information see Policy Stat Procedure [place] High Sensitivity Troponin (TNIH) and attachments. RBC Auto (Bld) [#/Vol]Ordere d By: Panda Rowe on 07-12-2023 RBC (Bld) [#/Vol] 4.16 10*6/uL 4.2-5.4 [facility] Serum or plasma calcium heather urement (mass/volume)Ordered By: Panda Rowe on 07-12-2023 Calcium [Mass/Vol] 8.6 mg/dL 8.5-10.1 [facility] Serum or plasma creatinine m easurement (mass/volume)Ordered By: Panda Rowe on 07-12-2023 Creatinine [Mass/Vol] 1.09 mg/dL 0.55-1.02 [facility] Comment on above: The validity of the calculated GFR & GFRAA in patients over 70 years has not been determined. Clinical correlation is essential. Serum or plasma urea nitroge n measurement (mass/volume)Ordered By: Panda Rowe on 07-12-2023 Urea nitrogen [Mass/Vol] 17 mg/dL 7-[address] [facility] Thin prep Papanicolaou smear with manual screeningOrdered By: Panda Rowe on 07-12-2023 Thin prep Papanicolaou smear with manual screening 4 5-[address] [facility] Absolute lymphocyte countOrd ered By: Charla Wadsworth on 01-30-2023 Lymphocytes Auto (Unsp spec) [#/Vol] 3.06 10*3/uL 0.83-4.[address] [facility] Basophil percentageOrdered B y: Charla Wadsworth on 01-30-2023 Basophils/100 WBC (Bld) 0.4 % 0-1 [facility] Bilirubin [Mass/Vol] 0.40 mg/dL 0.20-1.00 [facility] Comment on above: For patients on eltr ombopag therapy, use of Dimension [place] TBIL is not recommended. Chloride [Moles/Vol] 104 mmol/L 98-107 [facility] Eosinophils/100 WBC (Bld) 0.8 % 0-[address] [facility] Glucose [Mass/Vol] 117 mg/dL 74-106 [facility] Comment on above: Fasting Glucose resu lt from 100 to 125 mg/dL suggests IMPAIRED HOMEOSTASIS per A.D.A. criteria. Neutrophils (Bld) [#/Vol] 9.7 10*3/uL 2.0-7.[address] [facility] Neutrophils/100 WBC (Bld) 71.2 % 47-[address] [facility] Potassium [Moles/Vol] 3.0 mmol/L 3.5-5.1 [facility] Protein [Mass/Vol] 8.2 g/dL 6.4-8.2 [facility] Sodium [Moles/Vol] 142 mmol/L 136-145 [facility] WBC (Bld) [#/Vol] 13.7 10*3/uL 4.4-11.0 [facility] Blood erythrocytes count (nu mber/volume)Ordered By: Charla Wadsworth on 01-30-2023 RBC (Bld) [#/Vol] 4.94 10*6/uL 4.2-5.4 [facility] Blood hemoglobin measurement (mass/volume)Ordered By: Charla Wadsworth on 01-30-2023 Hemoglobin (Bld) [Mass/Vol] 13.7 g/dL 12.0-15.[address] [facility] Blood lymphocytes/100 leukoc ytesOrdered By: [facility] on 01-30-2023 Lymphocytes/100 WBC (Bld) 22.4 % 19-[address] [facility] Blood monocytes/100 leukocyt esOrdered By: aylachina grovejoselyn Wadsworth on 01-30-2023 Monocytes/100 WBC (Bld) 4.6 % 0-10 [facility] Blood platelet mean volumeOr dered By: Cahrla Wadsworth on 01-30-2023 Platelet mean volume (Bld) [Entitic vol] 9.6 fL 6.2-12.[address] [facility] Determination of erythrocyte mean corpuscular volume (MCV)Ordered By: Charla Wadsworth on 01-30-2023 MCV (RBC) [Entitic vol] 86.2 fL 81-99 [facility] Hematocrit Auto (Bld) [Volum e fraction]Ordered By: Charla Wadsworth on 01-30-2023 Hematocrit (Bld) [Volume fraction] 42.6 % 37-[address] [facility] Laboratory - Chemistry and C hemistry - challengeOrdered By: aylachina grovejoselyn Wadsworth on 01-30-2023 ALP [Catalytic activity/Vol] 122 U/L 45-[address] [facility] ALT [Catalytic activity/Vol] 20 U/L 13-[address] [facility] CO2 [Moles/Vol] 30.0 mmol/L 21.0-32.[address] [facility] Globulin (S) [Mass/Vol] 4.8 g/dL 2.2-4.2 [facility] Urea nitrogen/Creatinine [Mass ratio] 9.9 mg/mg 10-[address] [facility] Laboratory - Hematology and Cell countsOrdered By: Charla Wadsworth on 01-30-2023 Erythrocyte distribution width (RBC) [Entitic vol] 44.7 fL 35.1-43.[address] [facility] Erythrocyte distribution width (RBC) [Ratio] 14.2 % 11.6-14.[address] [facility] Immature granulocytes/100 WBC (Bld) 0.600 % 0.0-0.[address] [facility] Comment on above: IG% - Immature Granu locytes (promyelocytes, myelocytes and metamyelocytes) > 1% indicates that a LEFT SHIFT is Present. MCH (RBC) [Entitic mass] 27.7 pg 27.0-32.[address] [facility] Nucleated RBC/100 WBC (Bld) [Ratio] 0 % 0-[address] [facility] MCHC Auto (RBC) [Mass/Vol]Or dered By: Charla Wadsworth on 01-30-2023 MCHC (RBC) [Mass/Vol] 32.2 g/dL 32-36 [facility] No Panel InformationOrdered By: Charla Wadsworth on 01-30-2023 Estimated GFR (MDRD) Amer 73 mL/min >[address] [facility] Comment on above: GFR Calc Estimated GFR (MDRD) Non-Af Amer 60 mL/min >[address] [facility] Comment on above: Non- GFR Calc Thyroid Stimulating Hormone (TSH) 1.23 uIU/mL 0.358-3.[address] [facility] Platelets bldOrdered By: Ozzy Wadsworth on 01-30-2023 Platelets (Bld) [#/Vol] 346 10*3/uL 150-[address] [facility] Serum or plasma albumin heather urement (mass/volume)Ordered By: Charla Wadsworth on 01-30-2023 Albumin [Mass/Vol] 3.4 g/dL 3.2-5.0 [facility] Serum or plasma albumin/glob ulin mass ratioOrdered By: Charla Wadsworth on 01-30-2023 Albumin/Globulin [Mass ratio] 0.7 {ratio} 0.9-2.[address] [facility] Serum or plasma calcium heather urement (mass/volume)Ordered By: Charla Wadsworth on 01-30-2023 Calcium [Mass/Vol] 9.2 mg/dL 8.5-10.1 [facility] Serum or plasma creatinine m easurement (mass/volume)Ordered By: Charla Wadsworth on 01-30-2023 Creatinine [Mass/Vol] 1.01 mg/dL 0.55-1.02 [facility] Comment on above: The validity of the calculated GFR & GFRAA in patients over 70 years has not been determined. Clinical correlation is essential. Serum or plasma urea nitroge n measurement (mass/volume)Or[facility] By[facility] 01-30-2023 Urea nitrogen [Mass/Vol] 10 mg/dL 7-[address] [facility] Thin prep Papanicolaou smear with manual screeningOrdered By: [facility] on 01-30-2023 Thin prep Papanicolaou smear with manual screening 20 U/L 15-[address] [facility] Thin prep Papanicolaou smear with manual screening 8 5-[address] [facility] Absolute lymphocyte countOrd ered By: Keon Ramirez on 12-03-2022 Lymphocytes Auto (Unsp spec) [#/Vol] 3.65 10*3/uL 0.83-4.[address] [facility] Basophil percentageOrdered B y: Keon Ramirez on 12-03-2022 Basophils/100 WBC (Bld) 0.3 % 0-1 [facility] Chloride [Moles/Vol] 103 mmol/L 98-107 [facility] Eosinophils/100 WBC (Bld) 1.5 % 0-[address] [facility] Glucose [Mass/Vol] 89 mg/dL 74-106 [facility] Neutrophils (Bld) [#/Vol] 8.4 10*3/uL 2.0-7.[address] [facility] Neutrophils/100 WBC (Bld) 64.1 % 47-[address] [facility] Potassium [Moles/Vol] 4.3 mmol/L 3.5-5.1 [facility] Sodium [Moles/Vol] 137 mmol/L 136-145 [facility] WBC (Bld) [#/Vol] 13.0 10*3/uL 4.4-11.0 [facility] Blood erythrocytes count (nu mber/volume)Ordered By: Keon Ramirez on 12-03-2022 RBC (Bld) [#/Vol] 4.75 10*6/uL 4.2-5.4 [facility] Blood hemoglobin measurement (mass/volume)Ordered By: Keon Ramirez on 12-03-2022 Hemoglobin (Bld) [Mass/Vol] 13.7 g/dL 12.0-15.[address] [facility] Blood lymphocytes/100 leukoc ytesOrdered By: Keon Ramirez on 12-03-2022 Lymphocytes/100 WBC (Bld) 28.0 % 19-[address] [facility] Blood monocytes/100 leukocyt esOrdered By: Keon Ramirez on 12-03-2022 Monocytes/100 WBC (Bld) 5.7 % 0-10 [facility] Blood platelet mean volumeOr dered By: Keon Ramirez on 12-03-2022 Platelet mean volume (Bld) [Entitic vol] 9.5 fL 6.2-12.[address] [facility] Determination of erythrocyte mean corpuscular volume (MCV)Ordered By: Keon Ramirez on 12-03-2022 MCV (RBC) [Entitic vol] 87.2 fL 81-99 [facility] Hematocrit Auto (Bld) [Volum e fraction]Ordered By: Keon Ramirez on 12-03-2022 Hematocrit (Bld) [Volume fraction] 41.4 % 37-[address] [facility] Laboratory - Chemistry and C hemistry - challengeOrdered By: Keon Ramirez on 12-03-2022 CO2 [Moles/Vol] 28.0 mmol/L 21.0-32.[address] [facility] Urea nitrogen/Creatinine [Mass ratio] 12.3 mg/mg 10-[address] [facility] Laboratory - Hematology and Cell countsOrdered By: Keon Ramirez on 12-03-2022 Erythrocyte distribution width (RBC) [Entitic vol] 44.3 fL 35.1-43.[address] [facility] Erythrocyte distribution width (RBC) [Ratio] 13.7 % 11.6-14.[address] [facility] Immature granulocytes/100 WBC (Bld) 0.400 % 0.0-0.[address] [facility] Comment on above: IG% - Immature Granu locytes (promyelocytes, myelocytes and metamyelocytes) > 1% indicates that a LEFT SHIFT is Present. MCH (RBC) [Entitic mass] 28.8 pg 27.0-32.[address] [facility] Nucleated RBC/100 WBC (Bld) [Ratio] 0 % 0-[address] [facility] MCHC Auto (RBC) [Mass/Vol]Or dered By: Keon Ramirez on 12-03-2022 MCHC (RBC) [Mass/Vol] 33.1 g/dL 32-36 [facility] No Panel InformationOrdered By: Keon Ramirez on 12-03-2022 D-Dimer Quantitative (PE/DVT) 0.79 FEU/ug/m 0.27-0.[address] [facility] Comment on above: CRITICAL VALUE VERIF IED. CALLED TO BETHANY ETIENNE RN [id number] Josefina Villalobos.RESULTS READ BACK BY SAME . D-Dimer ELEVATED (>0.49): Additional studies and clinicalassessments are indicated to conclude diagnosis of:Deep Vein Thrombosis (DVT) or Pulmonary Embolism (PE) Troponin I High Sensitivity 4 pg/mL 3.0-54.[address] [facility] Comment on above: Please Note: New [place] t Units and Gender Specific Reference Ranges. For more information see Policy Stat Procedure [place] High Sensitivity Troponin (TNIH) and attachments. Estimated Creatinine Clearance Calc 40.24 ml/min [facility] Estimated GFR (MDRD) Amer 58 mL/min >[address] [facility] Comment on above: GFR Calc Estimated GFR (MDRD) Non-Af Amer 48 mL/min >[address] [facility] Comment on above: Non- GFR Calc Platelets bldOrdered By: Carolyn Ramirez on 12-03-2022 Platelets (Bld) [#/Vol] 354 10*3/uL 150-[address] [facility] Serum or plasma calcium heather urement (mass/volume)Ordered By: Keon Ramirez on 12-03-2022 Calcium [Mass/Vol] 9.3 mg/dL 8.5-10.1 [facility] Serum or plasma creatinine m easurement (mass/volume)Ordered By: Keon Ramirez on 12-03-2022 Creatinine [Mass/Vol] 1.22 mg/dL 0.55-1.02 [facility] Comment on above: The validity of the calculated GFR & GFRAA in patients over 70 years has not been determined. Clinical correlation is essential. Serum or plasma urea nitroge n measurement (mass/volume)Ordered By: Keon Ramirez on 12-03-2022 Urea nitrogen [Mass/Vol] 15 mg/dL 7-[address] [facility] Thin prep Papanicolaou smear with manual screeningOrdered By: Keon Ramirez on 12-03-2022 Thin prep Papanicolaou smear with manual screening 6 5-[address] [facility] Absolute lymphocyte countOrd ered By: Dr. Wadsworth on 05-16-2022 Lymphocytes Auto (Unsp spec) [#/Vol] 3.61 10*3/uL 0.83-4.[address] [facility] Basophil percentageOrdered B y: Dr. Wadsworth on 05-16-2022 Basophils/100 WBC (Bld) 0.3 % 0-1 [facility] Bilirubin [Mass/Vol] 0.30 mg/dL 0.20-1.00 [facility] Comment on above: For patients on eltr ombopag therapy, use of Dimension [place] TBIL is not recommended. Chloride [Moles/Vol] 106 mmol/L 98-107 [facility] Cholesterol [Mass/Vol] 156 mg/dL <200 [place] Comment on above: <200 mg/dL Desirable 200-240 mg/dL Borderline >240 mg/dL High Risk Eosinophils/100 WBC (Bld) 1.2 % 0-[address] [facility] Glucose [Mass/Vol] 134 mg/dL 74-106 [facility] Comment on above: Fasting Glucose resu lt greater than or equal to 126 mg/dL suggests DIABETES MELLITUS per A.D.A. criteria. Neutrophils (Bld) [#/Vol] 10.4 10*3/uL 2.0-7.[address] [facility] Neutrophils/100 WBC (Bld) 68.1 % 47-[address] [facility] Potassium [Moles/Vol] 5.0 mmol/L 3.5-5.1 [facility] Protein [Mass/Vol] 7.9 g/dL 6.4-8.2 [facility] Sodium [Moles/Vol] 138 mmol/L 136-145 [facility] Triglyceride [Mass/Vol] 193 mg/dL <199 [facility] Comment on above: The drugs N-Acetylcy steine and Metamizole may falsely depress this assay.Serum Triglycerides Reference Interval Normal <150 mg/dL Borderline high 150 - 199 mg/dL High 200 - 499 mg/dL Very High > or = 500 mg/dL WBC (Bld) [#/Vol] 15.2 10*3/uL 4.4-11.0 [facility] Blood erythrocytes count (nu mber/volume)Ordered By: Dr. Wadsworth on 05-16-2022 RBC (Bld) [#/Vol] 5.19 10*6/uL 4.2-5.4 [facility] Blood hemoglobin measurement (mass/volume)Ordered By: Dr. Wadsworth on 05-16-2022 Hemoglobin (Bld) [Mass/Vol] 14.5 g/dL 12.0-15.[address] [facility] Blood lymphocytes/100 leukoc ytesOrdered By: Dr. Wadsworth on 05-16-2022 Lymphocytes/100 WBC (Bld) 23.7 % 19-[address] [facility] Blood monocytes/100 leukocyt esOrdered By: Dr. Wadsworth on 05-16-2022 Monocytes/100 WBC (Bld) 6.2 % 0-10 [facility] Blood platelet mean volumeOr dered By: Dr. Wadsworth on 05-16-2022 Platelet mean volume (Bld) [Entitic vol] 9.6 fL 6.2-12.[address] [facility] Determination of erythrocyte mean corpuscular volume (MCV)Ordered By: Dr. Wadsworth on 05-16-2022 MCV (RBC) [Entitic vol] 88.4 fL 81-99 [facility] Direct bilirubinOrdered By: Dr. Wadsworth on 05-16-2022 Bilirubin.direct [Mass/Vol] 0.09 mg/dL 0.00-0.[address] [facility] Hematocrit Auto (Bld) [Volum e fraction]Ordered By: Dr. Wadsworth on 05-16-2022 Hematocrit (Bld) [Volume fraction] 45.9 % 37-[address] [facility] Laboratory - Chemistry and C hemistry - challengeOrdered By: Dr. Wadsworth on 05-16-2022 ALP [Catalytic activity/Vol] 121 U/L 45-[address] [facility] ALT [Catalytic activity/Vol] 16 U/L 13-[address] [facility] CO2 [Moles/Vol] 29.0 mmol/L 21.0-32.[address] [facility] Globulin (S) [Mass/Vol] 4.6 g/dL 2.2-4.2 [facility] Urea nitrogen/Creatinine [Mass ratio] 11.6 mg/mg 10-[address] [facility] Laboratory - Hematology and Cell countsOrdered By: Dr. Wadsworth on 05-16-2022 Erythrocyte distribution width (RBC) [Entitic vol] 52.3 fL 35.1-43.[address] [facility] Erythrocyte distribution width (RBC) [Ratio] 16.2 % 11.6-14.[address] [facility] Immature granulocytes/100 WBC (Bld) 0.500 % 0.0-0.[address] [facility] Comment on above: IG% - Immature Granu locytes (promyelocytes, myelocytes and metamyelocytes) > 1% indicates that a LEFT SHIFT is Present. MCH (RBC) [Entitic mass] 27.9 pg 27.0-32.[address] [facility] Nucleated RBC/100 WBC (Bld) [Ratio] 0 % 0-[address] [facility] MCHC Auto (RBC) [Mass/Vol]Or dered By: Dr. Wadsworth on 05-16-2022 MCHC (RBC) [Mass/Vol] 31.6 g/dL 32-36 [facility] No Panel InformationOrdered By: Dr. Wadsworth on 05-16-2022 Estimated GFR (MDRD) Amer 59 mL/min >[address] [facility] Comment on above: GFR Calc Estimated GFR (MDRD) Non-Af Amer 49 mL/min >[address] [facility] Comment on above: Non- GFR Calc Platelets bldOrdered By: Dr. Wadsworth on 05-16-2022 Platelets (Bld) [#/Vol] 329 10*3/uL 150-[address] [facility] Serum or plasma albumin heather urement (mass/volume)Ordered By: Dr. Wadsworth on 05-16-2022 Albumin [Mass/Vol] 3.3 g/dL 3.2-5.0 [facility] Serum or plasma albumin/glob ulin mass ratioOrdered By: Dr. Wadsworth on 05-16-2022 Albumin/Globulin [Mass ratio] 0.7 {ratio} 0.9-2.[address] [facility] Serum or plasma calcium heather urement (mass/volume)Ordered By: Dr. Wadsworth on 05-16-2022 Calcium [Mass/Vol] 9.7 mg/dL 8.5-10.1 [facility] Serum or plasma cholesterol in HDL measurement (mass/volume)Ordered By: Dr. Wadsworth on 05-16-2022 Cholesterol in HDL [Mass/Vol] 30 mg/dL >[address] [facility] Comment on above: The drugs N-Acetylcy steine and Metamizole may falsely depress this assay. Reference Range HDL <40 mg/dL Low HDL Cholesterol HDL >or= 60 mg/dL High HDL Cholesterol Serum or plasma cholesterol in VLDL measurement (mass/volume)Ordered By: Dr. Wadsworth on 05-16-2022 Cholesterol in VLDL [Mass/Vol] 39 mg/dL 5-[address] [facility] Serum or plasma creatinine m easurement (mass/volume)Ordered By: Dr. Wadsworth on 05-16-2022 Creatinine [Mass/Vol] 1.21 mg/dL 0.55-1.02 [facility] Comment on above: The validity of the calculated GFR & GFRAA in patients over 70 years has not been determined. Clinical correlation is essential. Serum or plasma low density lipoprotein (LDL) cholesterol measurement (mass/volume)Ordered By: Dr. Wadsworth on 05-16-2022 Cholesterol in LDL [Mass/Vol] 87 mg/dL 0-[address] [facility] Serum or plasma urea nitroge n measurement (mass/volume)Ordered By: Dr. Wadsworth on 05-16-2022 Urea nitrogen [Mass/Vol] 14 mg/dL 7-[address] [facility] Thin prep Papanicolaou smear with manual screeningOrdered By: Dr. Wadsworth on 05-16-2022 Thin prep Papanicolaou smear with manual screening 13 U/L 15-[address] [facility] Thin prep Papanicolaou smear with manual screening 3 5-[address] [facility] Absolute lymphocyte counton 10-24-2021 Lymphocytes Auto (Unsp spec) [#/Vol] 2.19 10*3/uL 0.83-4.[address] [facility] Work Phone: Basophil percentageon 2021 Basophil percentage < 10.0 umol/L 11-32 [place] Work Phone: Basophil percentage 3.1 mg/dL 2.5-4.9 [facility] Work Phone: Basophils/100 WBC (Bld) 0.3 % 0-1 [facility] Work Phone: Bilirubin [Mass/Vol] 0.50 mg/dL 0.20-1.00 [facility] Work Phone: Comment on above: For patients on eltr ombopag therapy, use of Dimension [place] TBIL is not recommended. Chloride [Moles/Vol] 109 mmol/L 98-107 [facility] Work Phone: Eosinophils/100 WBC (Bld) 0.5 % 0-[address] [facility] Work Phone: Glucose [Mass/Vol] 97 mg/dL 74-106 [facility] Work Phone: Neutrophils (Bld) [#/Vol] 8.5 10*3/uL 2.0-7.[address] [facility] Work Phone: Neutrophils/100 WBC (Bld) 73.4 % 47-[address] [facility] Work Phone: Potassium [Moles/Vol] 3.5 mmol/L 3.5-5.1 [facility] Work Phone: Protein [Mass/Vol] 7.6 g/dL 6.4-8.2 [facility] Work Phone: Sodium [Moles/Vol] 141 mmol/L 136-145 [facility] Work Phone: WBC (Bld) [#/Vol] 11.6 10*3/uL 4.4-11.0 [facility] Work Phone: [phone] Blood erythrocytes count (nu mber/volume)on 10-24-2021 RBC (Bld) [#/Vol] 4.89 10*6/uL 4.2-5.4 [facility] Work Phone: [phone] Blood hemoglobin measurement (mass/volume)on 10-24-2021 Hemoglobin (Bld) [Mass/Vol] 13.6 g/dL 12.0-15.[address] [facility] Work Phone: [phone] Blood lymphocytes/100 leukoc yteson 10-24-2021 Lymphocytes/100 WBC (Bld) 18.8 % 19-[address] [facility] Work Phone: [phone] Blood monocytes/100 leukocyt eson 10-24-2021 Monocytes/100 WBC (Bld) 6.4 % 0-10 [facility] Work Phone: [phone] Blood platelet mean volumeon 10-24-2021 Platelet mean volume (Bld) [Entitic vol] 9.4 fL 6.2-12.[address] [facility] Work Phone: [phone] Determination of erythrocyte mean corpuscular volume (MCV)on 10-24-2021 MCV (RBC) [Entitic vol] 86.1 fL 81-99 [facility] Work Phone: [phone] Hematocrit Auto (Bld) [Volum e fraction]on 10-24-2021 Hematocrit (Bld) [Volume fraction] 42.1 % 37-[address] [facility] Work Phone: [phone] Laboratory - Chemistry and C hemistry - challengeon 10-24-2021 ALP [Catalytic activity/Vol] 107 U/L 45-[address] [facility] Work Phone: [phone] ALT [Catalytic activity/Vol] 23 U/L 13-[address] [facility] Work Phone: [phone] CO2 [Moles/Vol] 26.0 mmol/L 21.0-32.[address] [facility] Work Phone: [phone] Globulin (S) [Mass/Vol] 4.4 g/dL 2.2-4.2 [facility] Work Phone: [phone] Urea nitrogen/Creatinine [Mass ratio] 13.7 mg/mg 10-[address] [facility] Work Phone: [phone] Laboratory - Hematology and Cell countson 10-24-2021 Erythrocyte distribution width (RBC) [Entitic vol] 47.4 fL 35.1-43.[address] [facility] Work Phone: [phone] Erythrocyte distribution width (RBC) [Ratio] 15.0 % 11.6-14.[address] [facility] Work Phone: [phone] Immature granulocytes/100 WBC (Bld) 0.600 % 0.0-0.[address] [facility] Work Phone: [phone] Comment on above: IG% - Immature Granu locytes (promyelocytes, myelocytes and metamyelocytes) > 1% indicates that a LEFT SHIFT is Present. MCH (RBC) [Entitic mass] 27.8 pg 27.0-32.[address] [facility] Work Phone: [phone] Nucleated RBC/100 WBC (Bld) [Ratio] 0 % 0-[address] [facility] Work Phone: [phone] MCHC Auto (RBC) [Mass/Vol]on 10-24-2021 MCHC (RBC) [Mass/Vol] 32.3 g/dL 32-36 [facility] Work Phone: [phone] Panel Informationon 10-24 Estimated Creatinine Clearance Calc 68.06 ml/min [facility] Work Phone: [phone] Estimated GFR (MDRD) Amer 106 mL/min >[address] [facility] Work Phone: [phone] Comment on above: GFR Calc Estimated GFR (MDRD) Non-Af Amer 88 mL/min >[address] [facility] Work Phone: [phone] Comment on above: Non- GFR Calc Platelets bldon 10-24-2021 Platelets (Bld) [#/Vol] 264 10*3/uL 150-[address] [facility] Work Phone: [phone] Serum or plasma albumin heather urement (mass/volume)on 10-24-2021 Albumin [Mass/Vol] 3.2 g/dL 3.2-5.0 [facility] Work Phone: [phone] Serum or plasma albumin/glob ulin mass ratioon 10-24-2021 Albumin/Globulin [Mass ratio] 0.7 {ratio} 0.9-2.[address] [facility] Work Phone: [phone] Serum or plasma calcium heather urement (mass/volume)on 10-24-2021 Calcium [Mass/Vol] 9.4 mg/dL 8.5-10.1 [facility] Work Phone: [phone] Serum or plasma creatinine m easurement (mass/volume)on 10-24-2021 Creatinine [Mass/Vol] 0.73 mg/dL 0.55-1.02 [facility] Work Phone: Comment on above: The validity of the calculated GFR & GFRAA in patients over 70 years has not been determined. Clinical correlation is essential. Serum or plasma urea nitroge n measurement (mass/volume)on 10-24-2021 Urea nitrogen [Mass/Vol] 10 mg/dL 7-[address] [facility] Work Phone: [phone] Thin prep Papanicolaou smear with manual screeningon 10-24-2021 Thin prep Papanicolaou smear with manual screening 28 U/L 15-[address] [facility] Work Phone: [phone] Thin prep Papanicolaou smear with manual screening 6 5-[address] [facility] Work Phone: Basophil percentageon 2021 Basophil percentage 0-5 SEEN /hpf 0-5 [place] Work Phone: [phone] Lactate [Moles/Vol] 1.1 mmol/L 0.4-2.0 [facility] Work Phone: [phone] Bilirubin Test strip Ql (U)o n 10-23-2021 Bilirubin Ql (U) Negative Negative [facility] Work Phone: [phone] Ketones Test strip Ql (U)on 10-23-2021 Ketones Ql (U) 50 mg/dl Negative [facility] Work Phone: [phone] Laboratory - Chemistry and C hemistry - challengeon 10-23-2021 Magnesium [Mass/Vol] 2.0 mg/dL 1.6-2.6 [facility] Work Phone: [phone] Comment on above: Slight Hemolysis, Re sult may be falsely increased. Laboratory - Drug toxicology on 10-23-2021 Amphetamines Ql (U) Negative <1000 ng/mL [facility] Work Phone: [phone] Benzodiazepines Ql (U) Negative < 200 ng/mL [facility] Work Phone: [phone] Cannabinoids Screen Ql (U) Negative < 50 ng/mL [facility] Work Phone: [phone] Cocaine Ql (U) Negative < 300 ng/mL [facility] Work Phone: [phone] Opiates Ql (U) Negative < 300 ng/mL [facility] Work Phone: [phone] Mucus LM Ql (Urine sed)on Mucus Ql (Urine sed) 0 SEEN /hpf [facility] Work Phone: [phone] Nitrite Test strip Ql (U)on 10-23-2021 Nitrite Ql (U) Negative Negative [facility] Work Phone: [phone] No Panel Informationon 10-23 MDMA (Ecstasy) Screen Negative < 500 ng/mL [place] Work Phone: [phone] Urine Barbiturates Screen Negative < 200 ng/mL [facility] Work Phone: [phone] Urine Drug Screen Comment [facility] Work Phone: [phone] Comment on above: CONFIRMATORY TESTING FOR ALL POSITIVE URINE DRUG SCREENRESULTS WILL ONLY BE SENT OUT UPON PHYSICIAN ORDER. VISTA Urine Drug Screen methods provide only preliminaryanalytical test results. A more specific alternate chemicalmethod must be used in order to obtain a confirmedanalytical result. Gas chromatography/mass spectrometery(GC/MS) is the preferred confirmatory method. Clinicalconsideration and professional judgement should be appliedto any drug of abuse test result, particularly whenpreliminary positive results are used. URINE TCA TESTING MUST BE ORDERED SEPARATELY. USE TESTMNEMONIC: [facility] Urine Methadone Screen Negative < 300 ng/mL [facility] Work Phone: Thyroid Stimulating Hormone (TSH) 1.39 uIU/mL 0.358-3.[address] [facility] Work Phone: Protein Test strip Ql (U)on 10-23-2021 Protein Ql (U) 15 mg/dl Negative [facility] Work Phone: Squamous epithelial cells de tection in urine sediment by light microscopyon 10-23-2021 Epithelial cells.squamous LM Ql (Urine sed) 0-5 SEEN /hpf 5-[address] [facility] Work Phone: Urine blood detectionon 10-09 RBC Ql (U) 25 /ul Negative [facility] Work Phone: RBC Ql (U) 0-5 SEEN /hpf 0-[address] [facility] Work Phone: Urine clarityon 10-23-2021 Clarity (U) Clear Clear [facility] Work Phone: Urine color determinationon 10-23-2021 Color (U) Yellow Yellow [facility] Work Phone: Urine glucose detectionon Glucose Ql (U) Normal mg/dl Normal [facility] Work Phone: Urine leukocyte esterase det ection by dipstickon 10-23-2021 Leukocyte esterase Test strip Ql (U) 25 /ul Negative [facility] Work Phone: Urine pHon 10-23-2021 pH (U) 5.0 [pH] 5.0 - 8.[address] [facility] Work Phone: Urine phencyclidine (PCP) de tectionon 10-23-2021 Phencyclidine Ql (U) Negative < 25 ng/mL [facility] Work Phone: Urine sediment bacteria coun t by microscopy (number/high power field)on 10-23-2021 Bacteria LM.HPF (Urine sed) [#/Area] 1 /[HPF] None Seen [facility] Work Phone: Urine specific gravity measu rementon 10-23-2021 Specific gravity (U) [Rel density] 1.020 1.002-1.[address] [facility] Work Phone: Urobilinogen Auto test strip Ql (U)on 10-23-2021 Urobilinogen Ql (U) Normal mg/dl Normal [facility] Work Phone: Absolute lymphocyte counton 10-22-2021 Lymphocytes Auto (Unsp spec) [#/Vol] 2.47 10*3/uL 0.83-4.51 [facility] [facility] Work Phone: Basophil percentageon 2021 Basophils/100 WBC (Bld) 0.4 % 0-1 [facility] Work Phone: Bilirubin [Mass/Vol] 0.30 mg/dL 0.20-1.00 [facility] Work Phone: Comment on above: For patients on eltr ombopag therapy, use of Dimension [place] TBIL is not recommended. Chloride [Moles/Vol] 111 mmol/L 98-107 [facility] Work Phone: Eosinophils/100 WBC (Bld) 2.3 % 0-[address] [facility] Work Phone: Glucose [Mass/Vol] 107 mg/dL 74-106 [facility] Work Phone: Comment on above: Fasting Glucose resu lt from 100 to 125 mg/dL suggests IMPAIRED HOMEOSTASIS per A.D.A. criteria. Neutrophils (Bld) [#/Vol] 7.6 10*3/uL 2.0-7.[address] [facility] Work Phone: Neutrophils/100 WBC (Bld) 68.7 % 47-[address] [facility] Work Phone: Potassium [Moles/Vol] 3.9 mmol/L 3.5-5.1 [facility] Work Phone: Protein [Mass/Vol] 7.8 g/dL 6.4-8.2 [facility] Work Phone: Sodium [Moles/Vol] 141 mmol/L 136-145 [facility] Work Phone: [phone] WBC (Bld) [#/Vol] 11.1 10*3/uL 4.4-11.0 [facility] Work Phone: [phone] Blood erythrocytes count (nu mber/volume)on 10-22-2021 RBC (Bld) [#/Vol] 5.04 10*6/uL 4.2-5.4 [facility] Work Phone: [phone] Blood hemoglobin measurement (mass/volume)on 10-22-2021 Hemoglobin (Bld) [Mass/Vol] 13.9 g/dL 12.0-15.[address] [facility] Work Phone: [phone] Blood lymphocytes/100 leukoc yteson 10-22-2021 Lymphocytes/100 WBC (Bld) 22.3 % 19-[address] [facility] Work Phone: [phone] Blood monocytes/100 leukocyt eson 10-22-2021 Monocytes/100 WBC (Bld) 5.8 % 0-10 [facility] Work Phone: [phone] Blood platelet mean volumeon 10-22-2021 Platelet mean volume (Bld) [Entitic vol] 9.5 fL 6.2-12.[address] [facility] Work Phone: [phone] Determination of erythrocyte mean corpuscular volume (MCV)on 10-22-2021 MCV (RBC) [Entitic vol] 87.3 fL 81-99 [facility] Work Phone: [phone] Hematocrit Auto (Bld) [Volum e fraction]on 10-22-2021 Hematocrit (Bld) [Volume fraction] 44.0 % 37-[address] [facility] Work Phone: [phone] Laboratory - Chemistry and C hemistry - challengeon 10-22-2021 ALP [Catalytic activity/Vol] 112 U/L 45-[address] [facility] Work Phone: [phone] ALT [Catalytic activity/Vol] 26 U/L 13-[address] [facility] Work Phone: [phone] CO2 [Moles/Vol] 25.0 mmol/L 21.0-32.[address] [facility] Work Phone: [phone] Globulin (S) [Mass/Vol] 4.5 g/dL 2.2-4.2 [facility] Work Phone: [phone] Urea nitrogen/Creatinine [Mass ratio] 19.9 mg/mg 10-[address] [facility] Work Phone: [phone] Laboratory - Hematology and Cell countson 10-22-2021 Erythrocyte distribution width (RBC) [Entitic vol] 49.0 fL 35.1-43.[address] [facility] Work Phone: [phone] Erythrocyte distribution width (RBC) [Ratio] 15.4 % 11.6-14.[address] [facility] Work Phone: [phone] Immature granulocytes/100 WBC (Bld) 0.500 % 0.0-0.[address] [facility] Work Phone: [phone] Comment on above: IG% - Immature Granu locytes (promyelocytes, myelocytes and metamyelocytes) > 1% indicates that a LEFT SHIFT is Present. MCH (RBC) [Entitic mass] 27.6 pg 27.0-32.[address] [facility] Work Phone: [phone] Nucleated RBC/100 WBC (Bld) [Ratio] 0 % 0-[address] [facility] Work Phone: [phone] MCHC Auto (RBC) [Mass/Vol]on 10-22-2021 MCHC (RBC) [Mass/Vol] 31.6 g/dL 32-36 [facility] Work Phone: [phone] Panel Informationon 10-22 Estimated Creatinine Clearance Calc 52.30 ml/min [facility] Work Phone: [phone] Estimated GFR (MDRD) Amer 78 mL/min >[address] [facility] Work Phone: [phone] Comment on above: GFR Calc Estimated GFR (MDRD) Non-Af Amer 64 mL/min >[address] [facility] Work Phone: [phone] Comment on above: Non- GFR Calc Platelets bldon 10-22-2021 Platelets (Bld) [#/Vol] 259 10*3/uL 150-[address] [facility] Work Phone: Serum or plasma albumin heather urement (mass/volume)on 10-22-2021 Albumin [Mass/Vol] 3.3 g/dL 3.2-5.0 [facility] Work Phone: [phone] Serum or plasma albumin/glob ulin mass ratioon 10-22-2021 Albumin/Globulin [Mass ratio] 0.7 {ratio} 0.9-2.[address] [facility] Work Phone: [phone] Serum or plasma calcium heather urement (mass/volume)on 10-22-2021 Calcium [Mass/Vol] 9.5 mg/dL 8.5-10.1 [facility] Work Phone: [phone] Serum or plasma creatinine m easurement (mass/volume)on 10-22-2021 Creatinine [Mass/Vol] 0.95 mg/dL 0.55-1.02 [facility] Work Phone: Comment on above: The validity of the calculated GFR & GFRAA in patients over 70 years has not been determined. Clinical correlation is essential. Serum or plasma urea nitroge n measurement (mass/volume)on 10-22-2021 Urea nitrogen [Mass/Vol] 19 mg/dL 7-[address] [facility] Work Phone: Thin prep Papanicolaou smear with manual screeningon 10-22-2021 Thin prep Papanicolaou smear with manual screening 26 U/L 15-[address] [facility] Work Phone: [phone] Thin prep Papanicolaou smear with manual screening 5 5-[address] [facility] Work Phone: [phone] Absolute lymphocyte counton 08-15-2021 Lymphocytes Auto (Unsp spec) [#/Vol] 4.25 10*3/uL 0.83-4.[address] [facility] Work Phone: Basophil percentageon 2021 Basophils/100 WBC (Bld) 0.3 % 0-1 [facility] Work Phone: [phone] Chloride [Moles/Vol] 107 mmol/L 98-107 [facility]: Eosinophils/100 WBC (Bld) 0.6 % 0-[address] [facility] Work Phone: Glucose [Mass/Vol] 100 mg/dL 74-106 [facility] Work Phone: Comment on above: Fasting Glucose resu lt from 100 to 125 mg/dL suggests IMPAIRED HOMEOSTASIS per A.D.A. criteria. Neutrophils (Bld) [#/Vol] 12.8 10*3/uL 2.0-7.[address] [facility] Work Phone: Neutrophils/100 WBC (Bld) 69.6 % 47-[address] [facility] Work Phone: Potassium [Moles/Vol] 4.2 mmol/L 3.5-5.1 [facility] Work Phone: Sodium [Moles/Vol] 140 mmol/L 136-145 [facility] Work Phone: WBC (Bld) [#/Vol] 18.3 10*3/uL 4.4-11.0 [facility] Work Phone: Blood erythrocytes count (nu mber/volume)on 08-15-2021 RBC (Bld) [#/Vol] 4.87 10*6/uL 4.2-5.4 [facility] Work Phone: Blood hemoglobin measurement (mass/volume)on 08-15-2021 Hemoglobin (Bld) [Mass/Vol] 14.6 g/dL 12.0-15.[address] [facility] Work Phone: Blood lymphocytes/100 leukoc yteson 08-15-2021 Lymphocytes/100 WBC (Bld) 23.2 % 19-[address] [facility] Work Phone: Blood monocytes/100 leukocyt eson 08-15-2021 Monocytes/100 WBC (Bld) 5.5 % 0-10 [facility] Work Phone: Blood platelet mean volumeon 08-15-2021 Platelet mean volume (Bld) [Entitic vol] 9.9 fL 6.2-12.[address] [facility] Work Phone: [phone] Determination of erythrocyte mean corpuscular volume (MCV)on 08-15-2021 MCV (RBC) [Entitic vol] 92.8 fL 81-99 [facility] Work Phone: [phone] Hematocrit Auto (Bld) [Volum e fraction]on 08-15-2021 Hematocrit (Bld) [Volume fraction] 45.2 % 37-[address] [facility] Work Phone: [phone] Laboratory - Chemistry and C hemistry - challengeon 08-15-2021 CO2 [Moles/Vol] 26.0 mmol/L 21.0-32.[address] [facility] Work Phone: [phone] Urea nitrogen/Creatinine [Mass ratio] 12.3 mg/mg 10-[address] [facility] Work Phone: [phone] Laboratory - Hematology and Cell countson 08-15-2021 Erythrocyte distribution width (RBC) [Entitic vol] 51.7 fL 35.1-43.[address] [facility] Work Phone: [phone] Erythrocyte distribution width (RBC) [Ratio] 15.1 % 11.6-14.[address] [facility] Work Phone: [phone] Immature granulocytes/100 WBC (Bld) 0.800 % 0.0-0.[address] [facility] Work Phone: [phone] Comment on above: IG% - Immature Granu locytes (promyelocytes, myelocytes and metamyelocytes) > 1% indicates that a LEFT SHIFT is Present. MCH (RBC) [Entitic mass] 30.0 pg 27.0-32.[address] [facility] Work Phone: [phone] Nucleated RBC/100 WBC (Bld) [Ratio] 0 % 0-[address] [facility] Work Phone: [phone] MCHC Auto (RBC) [Mass/Vol]on 08-15-2021 MCHC (RBC) [Mass/Vol] 32.3 g/dL 32-36 [facility] Work Phone: [phone] Panel Informationon 08-15 Estimated GFR (MDRD) Amer 63 mL/min >[address] [facility] Work Phone: Comment on above: GFR Calc Estimated GFR (MDRD) Non-Af Amer 52 mL/min >[address] [facility] Work Phone: Comment on above: Non- GFR Calc Platelets bldon 08-15-2021 Platelets (Bld) [#/Vol] 286 10*3/uL 150-[address] [facility] Work Phone: Serum or plasma calcium heather urement (mass/volume)on 08-15-2021 Calcium [Mass/Vol] 9.3 mg/dL 8.5-10.1 [facility] Work Phone: Serum or plasma creatinine m easurement (mass/volume)on 08-15-2021 Creatinine [Mass/Vol] 1.14 mg/dL 0.55-1.02 [facility] Work Phone: Comment on above: The validity of the calculated GFR & GFRAA in patients over 70 years has not been determined. Clinical correlation is essential. Serum or plasma urea nitroge n measurement (mass/volume)on 08-15-2021 Urea nitrogen [Mass/Vol] 14 mg/dL 7-[address] [facility] Work Phone: Thin prep Papanicolaou smear with manual screeningon 08-15-2021 Thin prep Papanicolaou smear with manual screening 7 5-[address] [facility] Work Phone: EMERGENCY REPORTon 1 EMERGENCY REPORT [facility] EMERGENCY ROOM REPORT NAME ACCOUNT SEX AGE ADMIT DISCHARGE PT MED. RECORD# NUMBER DATE DATE TYPE LEEANN, [id number] F 55 09/22/20 2 RAMSES Rodríguez [id number] ROOM: 305MO DATE OF : 1965 DICTATING PHYSICIAN: Autumn Edwards TIME SEEN: 1720 hours. HISTORY OF PRESENT ILLNESS: This is a 55-year-old white female who states she started getting dizzy today. She states she has been dizzy off and on for the past several days, but it got worse today. She is also complaining of feeling very weak. Her legs get shaky from the weakness when she does get up and walk. She ended up falling this morning around 11 a.m. She hit her head on a table when she fell, and she might have passed out; she is not sure. She is not sure how long she was out. She has been complaining of a headache and neck pain since then. She has complained of some chest pain off and on as well. She describes it as tightness. She rates it as a 7 on a severity scale of 1-10. It does at times radiate down her left arm and sometimes will radiate up into her neck. She states she did have a stress test not too long ago up at [place], but she was not sure if it was this year or not. She states that was okay. She has complained of some swelling in her legs. I do not see any now when I look at her legs. Family is at the bedside says that she has been in and out today as far as her mental status. She seems to be fine for awhile and then she will be somewhat slow and confused, and then she will seem to be okay for awhile and then she is slow and confused again. PCP is Dr. Wadsworth in [place]. Her melter clerk is Dr. Keys in [place]. PAST MEDICAL HISTORY: Hypertension, congestive heart failure, and coronary artery disease. 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 She has a history of sick sinus syndrome, and she does have a pacemaker. PAST SURGICAL HISTORY: Previous heart catheterization. She does not know if she has any stents or not. She has had an appendectomy and cholecystectomy. She has had an L4-L5 spinal fusion and a partial gastrectomy. ALLERGIES: She is allergic to nonsteroidal anti-inflammatories, erythromycin, Augmentin and betamethasone. SOCIAL HISTORY: She is a smoker of a half pack per day. She denies any alcohol or drug use. She lives alone. REVIEW OF SYSTEMS: She denies any fevers, sweats or chills. She does admit to chest pain. She denies any shortness of breath, cough, sputum, wheezing, abdominal pain, nausea, vomiting, diarrhea, or constipation. She does complain of a headache and neck pain. She does admit to dizziness and does admit to diffuse generalized weakness. Further review of systems is negative. Page 1 of 2 RAMSES BRADSHAW Emergency Room Report RAMSES BRADSHAW : 1965 PHYSICAL EXAMINATION: Vital signs: Blood pressure is 115/61, pulse 77, respirations 16, temperature 97.7, pulse oximetry 94% on room air, and weight 175 pounds. The patient is alert and oriented x3. She presently appears in no acute distress. She is pleasant and cooperative. She makes eye contact. She speaks in full sentences. HEENT: Head appears atraumatic. Pupils are equal and reactive to light. Red reflexes are intact bilaterally. Extraocular muscles are intact. No conjunctival injection. Ears: TMs are intact bilaterally. No erythema noted. No external auditory canal edema or bleeding. Nose exhibits no rhinorrhea or epistaxis. Mouth: Mucous membranes are mildly dry. No pharyngeal erythema. Uvula is midline and elevates. Neck is supple. Trachea is midline. No JVD or lymphadenopathy. No posterior cervical tenderness. No nuchal rigidity. Lungs are clear to auscultation bilaterally. No adventitious sounds are noted. No accessory muscle use is noted. CV: Heart rate and rhythm are regular without murmur. Abdomen is soft and nontender with normoactive bowel sounds x4 quadrants. No guarding or rigidity. No rebound. No palpable abdominal masses. No hepatosplenomegaly. Back exhibits no midline or paraspinal region tenderness. No increased paraspinal muscle rigidity. Negative Morris's sign. Extremities: No edema or cyanosis. Peripheral pulses are intact. No motor or sensory deficits are noted. Hand body cleaner are strong and symmetric. Skin is warm and dry. No diaphoresis or rash. Neurologic examination shows the patient to be alert and oriented x4. No motor or sensory deficits are noted. Normal speech. No conversational dyspnea. DIAGNOSTIC DATA: Chest x-ray shows a pacemaker, but I see no acute infiltrate or failure. The radiologist read it as showing no acute pulmonary parenchymal abnormality. We did a CT scan of the brain that was read by the radiologist as showing no appreciable acute intracranial abnormality. There was multifocal bilateral deep cerebral white matter hypodensities. Differential includes post-infe (more content not included)... [facility] EMERGENCY REPORT [facility] EMERGENCY ROOM REPORT NAME ACCOUNT SEX AGE ADMIT DISCHARGE PT MED. RECORD# NUMBER DATE DATE TYPE LEEANN [id number] F 55 09/22/20 2 RAMSES Rodríguez [id number] ROOM: 305MO DATE OF : 1965 DICTATING PHYSICIAN: Autumn Edwards ADDENDUM EMERGENCY DEPARTMENT COURSE AND TREATMENT: I did discuss the case with Dr. Vasquez. He did agree to admit the patient. Presently, I am waiting on the radiologist's report on the CT of the cervical spine, but I will keep an eye on that. I looked at the films myself, and I see no evidence of any fracture. DIAGNOSES: 1. Chest pain. 2. Accidental fall secondary to weakness. 3. Dizziness. 4. Sick sinus syndrome by history. PLAN/DISPOSITION: The patient will be admitted to Dr. Vasquez's service for the chest pain and further work-up. I have discussed this with the patient, and she is agreeable. Dictated By: Autumn Edwards DO 09/22/20 21:34 JOB #: [id number] Transcribed By: [email or web address] 09/23/20 07:29 Electronically signed by: E-Sign: Dr. Autumn Edwards D.O. 09/24/20 04:03 Page 1 of 1 RAMSES BRADSHAW Emergency Room Report [facility] CV ECHO [facility] [place] [address] Patient: RAMSES BRADSHAW. Phone#: : 1965 Age: 55 Gender: F Pt. Type: Out Account: [id number] Location: [facility] Ordering: NATALY VASQUEZ Exam Date: 09/23/2020/7:30 Family Phys: GEE MERCHANT Charge Code: [id number] Physician: Loving Order #: [id number] DLP Dose#: PROCEDURE: ECHOCARDIOGRAM WITH DOPPLER AND COLOR FLOW HISTORY: ANXIETY, GERD, CA-NEUROENDOCRINE TUMOR IN STOMACH, ANMIA, SICK SINUS SYNDROME W/ PACEMAKER, APPENDECTOMY, CHOLECYSTECTOMY, BATH ORTHO SX, CARDIAC CATH, COMPLETE HYSTERECTOMY, INDICATIONS: Chest pain COMPARISON: None. TECHNIQUE: A 2-D ultrasound, color spectral Doppler and M-mode evaluation of the heart and great vessels. PATIENT MEASUREMENTS: Height (in.): 61 BSA: 1.9 Weight (lbs.): 195 BP: 119/73 Diesel Technician: GERALD M MODE 2D MEASUREMENTS AND CALCULATIONS: LVIDd: 4.42 cm LVIDs: 2.23 cm IVSd: 0.97 cm LVPWd: 1.01 cm LVOT diam: 2.0 cm FS: 49.68 % Ao Root diam: 2.81 cm LA diam: 3.91 cm LA Volume Index: 26 mL/m2 LA A4 Area: 18.1 cm2 RA A4 Area: 15.6 cm2 RVDd: 2.71 cm TAPSE: DOPPLER MEASUREMENTS AND CALCULATIONS MITRAL Continued Report - Page 2 of 3 Patient: RAMSES BRADSHAW Phone#: : 1965 Age: 55 Gender: F Pt. Type: Out Account: [id number] Location: [facility] Ordering: NATALY VASQUEZ Exam Date: 09/23/2020/7:30 Family Phys: GEE MERCHANT Charge Code: [id number] Physician: Loving Order #: [id number] DLP Dose#: MV E MAX marco antonio: 76.86 cm/s MV A MAX marco antonio: 88.58 cm/s MV E-A ratio: 0.87 Lat Peak E' Marco Antonio 12 cm/sec Septal Peak E' MARCO ANTONIO 8 cm/sec E/E' lateral 7 E/E' medial 10 AORTIC Ao V2 max: 166.42 cm/s Ao max P.08 mm[Hg] LV V1 Max 125.27 cm/s LV V1 Max PG 6.28 mm[Hg] PULMONIC PA V2 Max 111.53 cm/s PA Max PG 4.98 mm[Hg] TRICUSPID TR Max Marco Antonio 209.28 cm/s TR max PG 17.52 mm[Hg] RVSP 20 mm Hg 2D/M-MODE AND COLOR FLOW LEFT VENTRICLE: Left ventricle is normal in size and thickness. Systolic ejection fraction is 60-65%. There are no regional wall motion abnormality seen. Diastolic function is normal WALL MOTION: 1 - Basal anterior: Normal. 7 - Mid anterior: Normal. 13 - Apical anterior: Normal. 2 - Basal anteroseptal: Normal. 8 - Mid anteroseptal: Normal. 14 - Apical septal: Normal. 3 - Basal inferoseptal: Normal. 9 - Mid inferoseptal: Normal. 15 - Apical inferior: Normal. 4 - Basal inferior: Normal. 10-Mid inferior: Normal. 16 - Apical lateral: Normal. 5 - Basal inferolateral: Normal. 11-Mid inferolateral: Normal. 6 - Basal anterolateral: Normal. 12-Mid anterolateral: Normal. RIGHT VENTRICLE: Right ventricle is normal in size and systolic function. There is pacemaker lead seen LEFT ATRIUM: Left atrium is normal in size RIGHT ATRIUM: Right atrium is normal in size. There is pacemaker lead seen ATRIAL SEPTUM: There is no large interatrial shunt seen. PFO was not assessed MITRAL VALVE: Mitral valve appears normal in structure and excursion. There is trivial regurgitation and no stenosis seen TRICUSPID VALVE: Tricuspid valve appears normal in structure. There is trivial regurgitation and no stenosis seen AORTIC VALVE: Aortic valve is trileaflet. There is no regurgitation or stenosis seen PULMONIC VALVE: Pulmonic valve is inadequately visualized. Doppler shows no significant regurgitation or stenosis. AORTIC ROOT: Aortic root is normal in size. Continued Report - Page 3 of 3 Patient: RAMSES BRADSHAW Phone#: : 1965 Age: 55 Gender: F Pt. Type: Out Account: [id number] Location: [facility] Ordering: NATALY VASQUEZ Exam Date: 09/23/2020/7:30 Family Phys: GEE MERCHANT Charge Code: [id number] Physician: Loving Order #: [id number] DLP Dose#: AORTIC ARCH: Aortic arch is normal in size. DESC THORACIC AORTA: Inadequately visualized IVC/SVC: IVC is normal in size with > 50% collapse of inspiration. Estimated right atrial pressure is 3 mm Hg PULMONARY VEINS: Inadequate Doppler PERICARDIUM: There is no pericardial effusion seen CONCLUSION: 1. Left ventricle is normal in size and thickness. Systolic ejection fraction is 60-65% with normal wall motion. Diastolic function is normal 2. There are no significant valvular dysfunction seen 3. Right atrium is normal in size. There is pacemaker lead seen 4. Right ventricle is normal in size and systolic function. There is pacemaker lead seen 5. Estimated right ventricular systolic pressure is 20 mm Hg 6. There are no prior studies for comparison Dictated by: SAHARA GALLOWAY MD on 09/23/2020 at 8:55 Approved by: SAHARA GALLOWAY MD on 09/23/2020 at 9:10 [facility] DRUG SCREEN URINE MEDICon AMPHETAMINES Negative [facility] Comment on above: Performed By: #### 2 [id number] #### [facility],[address] [place] [address],[facility] [address] B-DIAZEPINES Negative [facility] Comment on above: Performed By: #### 2 [id number] #### [facility],[address] [facility] [address] BARBITURATES Negative [facility] Comment on above: Performed By: #### 2 [id number] #### [facility],[address] [place] [address],[facility] [address] COCAINE Negative [facility] Comment on above: Performed By: #### 2 [id number] #### [facility],[address] [place] [address] DRUG SCREEN URINE MEDIC Normal [facility] Comment on above: Result Comment: DRUG SCREEN - URINE Performed By: #### 2 [id number] #### [facility],[address] [place] [address] METHADONE Negative [facility] Comment on above: Performed By: #### 2 46715 #### [facility],[address] [place] [address] OPIATES Positive [facility] Comment on above: Performed By: #### 2 57727 #### [facility],[address] [place] [address] PCP Negative [facility] Comment on above: Performed By: #### 2 [id number] #### [facility],[address] [place] [address] THC Negative [facility] Comment on above: Result Comment: DARÍO ENTS RECEIVING PROTON PUMP INHIBITORS MAY DEMONSTRATE FALSE POSITIVE THC/CANNABINOID RESULTS. AN ALTERNATIVE CONFIRMATORY METHOD SHOULD BE CONSIDERED TO VERIFY POSITIVE RESULTS. Performed By: #### 2 [id number] #### [facility],[address] [place] [address] LIPID PROFILEon 09-23-2020 Cholesterol [Mass/Vol] 164 mg/dL Normal 0 - 240 [facility] Comment on above: Performed By: #### 2 81270 ####[facility],[address] [place] [address]157 Cholesterol in HDL [Mass/Vol] 26 mg/dL Low 40 - 60 [facility] Comment on above: Performed By: #### 2 76851 ####[facility],[address] [place] [address]74 Cholesterol in LDL [Mass/Vol] 99 mg/dL Normal 0 - 129 [facility] Comment on above: Performed By: #### 2 21351 ####[facility],[address] [place] [address] Cholesterol.total/Roseanna sterol in HDL [Mass ratio] 6.3 {ratio} High 0.0 - 5.0 [facility] Comment on above: Performed By: #### 2 86824 ####[facility],[address] [place] [address] 34770 Lipid 1996 panel [facility] Comment on above: Result Comment: LIPI D PROFILE Performed By: #### 2 18109 ####[facility],[address] [place] [address] 17934 Triglyceride [Mass/Vol] 197 mg/dL High 0 - 150 [facility] Comment on above: Performed By: #### 2 76857 ####[facility],[address] [place] [address] NM C[facility] NM CARDIAC STRESS (SPECT) W/[address] [address] Patient: RAMSES BRADSHAW Phone#: : 1965 Age: 55 Gender: F Pt. Type: Out Account: [id number] Location: 010 Ordering: NATALY VASQUEZ Exam Date: 09/23/2020/6:22 Family Phys: GEE MERCHANT Charge Code: [id number] Physician: SAMUEL KEYS Loving Order #: [id number] DLP Dose#: PROCEDURE: CARDIAC STRESS SPECT WITH LEXISCAN HISTORY: ANXIETY, GERD, CA-NEUROENDOCRINE TUMOR IN STOMACH, ANMIA, SICK SINUS SYNDROME W/ PACEMAKER, APPENDECTOMY, CHOLECYSTECTOMY, BATH ORTHO SX, CARDIAC CATH, COMPLETE HYSTERECTOMY, COMPARISON: None. INDICATIONS: Chest pain TECHNIQUE: Resting and post Lexiscan stress SPECT images acquired in the horizontal long, vertical long and short axis views. Protocol: Lexiscan Duration: Peak Heart Rate: bpm, which is % of maximum predicted heart rate. Workload: not applicable REST DOSE: 11.2 mCi Sestamibi. STRESS DOSE: 30.3 mCi Sestamibi. INTERPRETATION: Resting Images: Resting images showed mild perfusion defect in the mid to distal inferior wall. There is significant subdiaphragmatic attenuation artifact adjacent to the inferior wall. There is also motion attenuation artifact seen. There is mild area of mild perfusion defect in the distal anterior wall which improved with stress Post Lexiscan stress Images: Post Lexiscan images showed mild to moderate perfusion defect in the basal to the distal inferior wall. The rest of the left ventricle have homogeneous radiotracer uptake Gated SPECT/wall motion: Gated SPECT showed calculated ejection fraction of 68%. There is abnormal wall motion in the inferior wall which could be affected by the attenuation artifact Continued Report - Page 2 of 2 Patient: RAMSES BRADSHAW Phone#: : 1965 Age: 55 Gender: F Pt. Type: Out Account: [id number] Location: 010 Ordering: NATALY VASQUEZ Exam Date: 09/23/2020/6:22 Family Phys: GEE MERCHANT Charge Code: [id number] Physician: SAMUEL KEYS Loving Order #: [id number] DLP Dose#: CONCLUSION: 1. Nuclear stress test is nondiagnostic for inferior wall ischemia due to significant subdiaphragmatic and motion attenuation artifact. There is no inducible ischemia or infarct in the LAD territory 2. Calculated ejection fraction is 68%. There is abnormal inferior wall motion which could be affected by the subdiaphragmatic attenuation artifact versus infarct. Correlate with other imaging studies 3. TID ratio is 1.13. Left ventricle appears normal in size and thickness Dictated by: SAHARA GALLOWAY MD on 09/23/2020 at 12:45 Approved by: SAHARA GALLOWAY MD on 09/23/2020 at 12:58 Normal [facility] NM EXERCISE STRESS TEST (W/C ARDIAC STUDYon 09-23-2020 NM EXERCISE STRESS TEST (W/CARDIAC STUDY [place] [address] Patient: RASMES BRADSHAW Phone#: : 1965 Age: 55 Gender: F Pt. Type: Out Account: [id number] Location: [facility] Ordering: NATALY VASQUEZ Exam Date: 09/23/2020/6:22 Family Phys: GEE MERCHANT Charge Code: [id number] Physician: SAMUEL KEYS Loving Order #: [id number] DLP Dose#: PROCEDURE: ELECTROCARDIOGRAM STRESS TEST HISTORY: ANXIETY, GERD, CA-NEUROENDOCRINE TUMOR IN STOMACH, ANMIA, SICK SINUS SYNDROME W/ PACEMAKER, APPENDECTOMY, CHOLECYSTECTOMY, BATH ORTHO SX, CARDIAC CATH, COMPLETE HYSTERECTOMY, COMPARISON: None. INDICATIONS: Chest pain TECHNIQUE: Electrocardiogram stress test was performed using the protocol listed below. STRESS RESULTS: Protocol: Lexiscan Duration: 0.4mg over 10 seconds Reason for termination: infusion complete. Resting Heart Rate: 77 bpm. Resting Blood Pressure: 129 mmHg Peak Heart Rate: 101 which is 61% of maximum predicted heart rate Blood pressure with Lexiscan With Lexiscan infusion blood pressure increased to130/78 Workload: 1.0 METs. Symptoms with stress: Patient complained of nausea with regadenoson which improved during recovery EKG Data EKG at Baseline: EKG at baseline showed sinus rhythm at 79 BPM. Normal EKG EKG with Stress: EKG with stress showed sinus rhythm at 99 BPM. There are no ST or T-wave abnormalities to suggest ischemia CONCLUSION: Continued Report - Page 2 of 2 Patient: RAMSES BRADSHAW Phone#: : 1965 Age: 55 Gender: F Pt. Type: Out Account: [id number] Location: 010 Ordering: NATALY VASQUEZ Exam Date: 09/23/2020/6:22 Family Phys: GEE Carlisle DAGMARALANA Charge Code: [id number] Physician: SAMUEL KEYS Loving Order #: [id number] DLP Dose#: 1. Patient did not complain of any chest pain with regadenoson. She had nausea which improved during recovery 2. Stress EKG is negative for inducible ischemia 3. Nuclear images will be read and reported separately Dictated by: SAHARA GALLOWAY MD on 09/23/2020 at 10:50 Approved by: SAHARA GALLOWAY MD on 09/23/2020 at 11:03 Normal [facility] TROPONIN I, HIGH SENSITIVITY on 09-23-2020 HS TROPONIN 6.4 pg/mL Normal 0.0 - 51.4 [facility] Comment on above: Performed By: #### 2 53397 #### [facility],[address] [place] [address] 77480 URINALYSISon 09-23-2020 Amorphous NONE Normal [facility] Comment on above: Performed By: #### 2 56849 #### [facility],[address] [place] [address] 15902 Bacteria 2+ Normal [facility] Comment on above: Performed By: #### 2 99558 #### [facility],[address] [place] [address] 15390 Bilirubin Ql (U) Negative Normal NORMAL: NEGATIVE [facility] Comment on above: Performed By: #### 2 49944 #### [facility],[address] [place] [address] 31073 Casts SEE BELOW Normal [facility] Comment on above: Performed By: #### 2 15019 #### [facility],[address] [place] [address] 42328 Clarity (U) clear Normal NORMAL: CLEAR [facility] Comment on above: Performed By: #### 2 26257 #### [facility],[address] [place] [address] 23284 Color (U) harjeet Normal NORMAL: YELLOW [facility] Comment on above: Performed By: #### 2 24278 #### [facility],[address] [place] [address] 92270 Crystals LM Nom (Urine sed) NONE Normal [facility] Comment on above: Performed By: #### 2 77897 #### [facility],[address] [place], [place] [id number] Epi Cells MANY Normal [facility] Comment on above: Performed By: #### 2 67298 #### [facility],[address] [place] [address] 90946 Glucose Ql (U) NORM Normal NORMAL: NORMAL [facility] Comment on above: Performed By: #### 2 16055 #### [facility],[address] [place] [address] 31378 Hemoglobin Ql (U) Negative Normal NORMAL: NEGATIVE [facility] Comment on above: Performed By: #### 2 21126 #### [facility],[address] [place] [address] 71657 Hyaline RARE Normal NORMAL: NONE [facility] Comment on above: Performed By: #### 2 06372 #### [facility],[address] [place] [address] 91382 Ketone Negative Normal NORMAL: NEGATIVE [facility] Comment on above: Performed By: #### 2 41956 #### [facility],[address] [place] [address] 95617 Leukocytes 25 Abnormal NORMAL: NEGATIVE [facility] Comment on above: Performed By: #### 2 02208 #### [facility],[address] [place] [address] 90840 Mucous NONE Normal [facility] Comment on above: Performed By: #### 2 35580 #### [facility],[address] [place] [address] Nitrite Ql (U) Negative Normal NORMAL: NEGATIVE [facility] Comment on above: Performed By: #### 2 53874 #### [facility],[address] [place] [address] pH (U) 5 [pH] Normal NORMAL: 5.0-8.0 [facility] Comment on above: Performed By: #### 2 56958 #### [facility],[address] [place] [address] Protein Ql (U) 15 Abnormal NORMAL: NEGATIVE [facility] Comment on above: Performed By: #### 2 12584 #### [facility],[address] [place] [address] Rbc NONE Normal 0-3/hpf [facility] Comment on above: Performed By: #### 2 24110 #### [facility],[address] [place] [address] Sp [place] 1.020 Normal NORMAL: 1.010-1.030 [facility] Comment on above: Performed By: #### 2 75246 #### [facility],[address] [place] [address] Specimen Type Void Normal [facility] Comment on above: Performed By: #### 2 49901 #### [facility],[address] [place] [address] Urinalysis dipstick W Reflex Microscopic panel (U) SEE BELOW Normal [facility] Comment on above: Result Comment: MICR OSCOPIC Performed By: #### 2 68048 #### [facility],[address] [place] [address] Urobilinog NORM Normal NORMAL: NORMAL [facility] Comment on above: Performed By: #### 2 91195 #### [facility],[address] [place] [address] Wbc 1-5 Normal 0-5/hpf [facility] Comment on above: Performed By: #### 2 91108 #### [facility],[address] [place] [address] 38211 Yeast 1+ Normal [facility] Comment on above: Performed By: #### 2 32072 #### [facility],[address] [place] [address] 71432 BMP with eGFRon 09-22-2020 AGE 55 years Normal [facility] Comment on above: Performed By: #### 2 22591 ####[facility],[address] [place] [address] 58322 Anion gap [Moles/Vol] 11 mmol/L Normal 10 - 20 [facility] Comment on above: Performed By: #### 2 40292 ####[facility],[address] [place] [address] BMP with eGFR Normal [facility] Comment on above: Result Comment: BASI C METABOLIC PANEL Performed By: #### 2 34293 ####[facility],[address] [place] [address] 84514 Calcium [Mass/Vol] 9.1 mg/dL Normal 8.5 - 10.1 [facility] Comment on above: Performed By: #### 2 13192 ####[facility],[address] [place] [address] 46685 Chloride [Moles/Vol] 102 mmol/L Normal 98 - 107 [facility] Comment on above: Performed By: #### 2 49155 ####[facility],[address] [place] [address] 65644 CO2 [Moles/Vol] 27.4 mmol/L Normal 21.0 - 32.0 [facility] Comment on above: Performed By: #### 2 02533 ####[facility],[address] [place] [address] 42469 Creatinine [Mass/Vol] 1.34 mg/dL High 0.55 - 1.02 [facility] Comment on above: Performed By: #### 2 96949 ####[facility],[address] [place] [address] 16513 eGFR 41 ML/MINUTE Low 60 - 999 [facility] Comment on above: Performed By: #### 2 32276 ####[facility],[address] [place] [address] 06587 eGFR(AA) 50 ML/MINUTE Low 60 - 999 [facility] Comment on above: Result Comment: ACCO RDING TO THE NATIONAL KIDNEY DISEASE EDUCATION PROGRAM(NKDE), A NORMAL eGFR IS A VALUE GREATER THAN OR EQUAL TO 60 ML/MIN/1.73 SQ METERS. CHRONIC KIDNEY DISEASE: <60mL/MIN/1.73 SQ METERS KIDNEY FAILURE: <15mL/MIN/1.73 SQ METERS THIS TEST SHOULD ONLY BE USED FOR PATIENTS 18 YEARS OF AGE AND OLDER. Performed By: #### 2 08148 ####[facility],[address] [place] [address] 25848 Glucose [Mass/Vol] 98 mg/dL Normal 74 - 106 [facility] Comment on above: Performed By: #### 2 51081 ####[facility],[address] [place] [address] 81047 Potassium [Moles/Vol] 3.6 mmol/L Normal 3.5 - 5.1 [facility] Comment on above: Performed By: #### 2 99698 ####[facility],[address] [place] [address] 13334 Sodium [Moles/Vol] 137 mmol/L Normal 136 - 145 [facility] Comment on above: Performed By: #### 2 69510 ####[facility],[address] [place] [address] 24188 Urea nitrogen [Mass/Vol] 20 mg/dL High 7 - 18 [facility] Comment on above: Performed By: #### 2 70039 ####[facility],[address] [place], [place] [address] CBC + DIFFon 09-22-2020 Baso # 0.20 x10EE3/UL High 0.00 - 0.10 [facility] Comment on above: Performed By: #### 2 50240 ####[facility],[address] [place] [address] 68371 Basophils/100 WBC (Bld) 1.4 % Normal 0.0 - 2.0 [facility] Comment on above: Performed By: #### 2 97063 ####[facility],[address] [place] [address] CBC + DIFF Normal [facility] Comment on above: Result Comment: CBC- COMPLETE BLOOD COUNT Performed By: #### 2 34723 ####[facility],[address] [place] [address] EO # 0.40 x10EE3/UL Normal 0.00 - 0.50 [facility] Comment on above: Performed By: #### 2 18963 ####[facility],[address] [place] [address] 60330 Eosinophils/100 WBC (Bld) 2.8 % Normal 0.0 - 7.0 [facility] Comment on above: Performed By: #### 2 71462 ####[facility],[address] [place] [address] 10237 Erythrocyte distribution width (RBC) [Ratio] 16.3 % High 12.0 - 15.6 [facility] Comment on above: Performed By: #### 2 10540 ####[facility],[address] [place] [address] 53800 Hematocrit (Bld) [Volume fraction] 40.7 % Normal 34.0 - 46.0 [facility] Comment on above: Performed By: #### 2 30126 ####[facility],[address] [place] [address] 56182 Hemoglobin (Bld) [Mass/Vol] 13.8 g/dL Normal 12.0 - 16.0 [facility] Comment on above: Performed By: #### 2 44639 ####[facility],[address] [place] [address] Lymph # 3.20 x10EE3/UL High 0.80 - 2.80 [facility] Comment on above: Performed By: #### 2 70800 ####[facility],[address] [place] [address] Lymphocytes/100 WBC (Bld) 23.4 % Normal 20.0 - 45.0 [facility] Comment on above: Performed By: #### 2 89327 ####[facility],[address] [place] [address] MANUAL DIFF N/A Normal [facility] Comment on above: Performed By: #### 2 50794 ####[facility],[address] [place] [address] MCH (RBC) [Entitic mass] 29 pg Normal 27 - 33 [facility] Comment on above: Performed By: #### 2 37346 ####[facility],[address] [place] [address] MCHC 34 X10 3 Normal 32 - 36 [facility] Comment on above: Performed By: #### 2 13760 ####[facility],[address] [place], [place] [address] MCV (RBC) [Entitic vol] 85 fL Normal 80 - 99 [facility] Comment on above: Performed By: #### 2 49852 ####[facility],[address] [place] [address] 95370 [place] # 1.00 x10EE3/UL Normal 0.20 - 1.00 [facility] Comment on above: Performed By: #### 2 15397 ####[facility],[address] [place], [place] [address] MONOS % 7.4 % Normal 0.0 - 10.0 [facility] Comment on above: Performed By: #### 2 67210 ####[facility],[address] [place] [address] 55094 Morphology Nacho (Bld) [Interp] N/A Normal [facility] Comment on above: Result Comment: {CD] Performed By: #### 2 16810 ####[facility],[address] [place] [address] 99710 Neut # 8.90 x10EE3/UL High 1.50 - 7.10 [facility] Comment on above: Performed By: #### 2 54526 ####[address] [address] Neutrophils/100 WBC (Bld) 65.0 % Normal 46.0 - 76.0 [facility] Comment on above: Performed By: #### 2 91864 ####[address] [address] PLATELET 256 x10EE3/UL Normal 150 - 450 [facility] Comment on above: Performed By: #### 2 53424 ####[facility],[address] [place] [address] Platelet mean volume (Bld) [Entitic vol] 7.1 fL Normal 6.6 - 10.5 [facility] Comment on above: Result Comment: AUTO MATED DIFFERENTIAL Performed By: #### 2 02329 ####[facility],[address] [place] [address] 64461 RBC 4.79 x 10EE6/UL Normal 4.10 - 5.30 [facility] Comment on above: Performed By: #### 2 80838 ####[facility],[address] [place] [address] 43479 WBC 13.7 x 10EE3/UL High 4.5 - 10.8 [facility] Comment on above: Performed By: #### 2 56651 ####[facility],[address] [place], [place] [address] CHEST 1 VIEWon 09-22-2020 CHEST 1 VIEW [place] [id number] Patient: RAMSES BRADSHAW Phone#: : 1965 Age: 55 Gender: F Pt. Type: ER Account: [id number] Location: 052 Ordering: DR. MADISON HAYDEN Exam Date: 09/22/2020/18:04 Family Phys: GEE MERCHANT Charge Code: [id number] Physician: Loving Order #: [id number] DLP Dose#: PROCEDURE: X-RAY CHEST 1 VIEW COMPARISON: [facility], XR, CHEST 2 VIEWS, 09/28/2018, 12:21. INDICATIONS: Trauma. FINDINGS: LUNGS: Normal. No significant pulmonary parenchymal abnormalities. VASCULATURE: Normal. Unremarkable pulmonary vasculature. CARDIAC: Normal. No cardiac silhouette abnormality or cardiomegaly. MEDIASTINUM: Normal. No visible mass or adenopathy. PLEURA: Normal. No effusion or pleural thickening. BONES: Normal. No fracture or visible bony lesion. OTHER: Left chest wall pacemaker with 2 leads. CONCLUSION: 1. No acute pulmonary parenchymal abnormality Dictated by: Nemo King MD on 09/22/2020 at 18:22 Approved by: Nemo King MD on 09/22/2020 at 18:[address] [facility] [address] BRAIN W/O CONTRASTon 09-08 CT BRAIN W/O CONTRAST [place] [address] Patient: RAMSES BRADSHAW Phone#: : 1965 Age: 55 Gender: F Pt. Type: ER Account: [id number] Location: 052 Ordering: DR. MADISON HAYDEN Exam Date: 09/22/2020/18:11 Family Phys: GEE MERCHANT Charge Code: [id number] Physician: Loving Order #: [id number] DLP Dose#: 57.50 PROCEDURE: CT BRAIN WITHOUT CONTRAST COMPARISON: [facility], CT, BRAIN W/O CON, 05/23/2018, 19:33. [facility], CT, BRAIN W/O CON, 06/27/2018, 18:21. INDICATIONS: Syncope. TECHNIQUE: CT images were obtained without contrast material. All CT scans at this facility use dose modulation, iterative reconstruction, and/or weight based dosing when appropriate to reduce radiation dose to as low as reasonably achievable. IV CONTRAST: No IV contrast used,0ml TOTAL DOSE: 57.5 CTDIvol(mGy) FINDINGS: CEREBRUM: No edema, hemorrhage, mass, or inappropriate atrophy. Multifocal bilateral deep cerebral white matter hypodensities. CEREBELLUM: No edema, hemorrhage, mass, or inappropriate atrophy. BRAINSTEM: No edema, hemorrhage, mass, or inappropriate atrophy. CSF SPACES: Ventricles, cisterns, and sulci are appropriate for age. No hydrocephalus, subarachnoid hemorrhage, or mass. SKULL: No mass or other significant visible lesion. SINUSES: Mucosal thickening throughout the ethmoid air cells. ORBITS: Limited views are unremarkable. OTHER: Atherosclerotic calcifications of the intracranial arteries. CONCLUSION: 1. No appreciable acute intracranial abnormality 2. Multifocal bilateral deep cerebral white matter hypodensities. The differential includes postinfectious, postinflammatory or demyelinating etiologies; extensive small vessel ischemic disease is possible but less common in a patient of this age group. Consider follow-up MRI for further evaluation when the patient is clinically able. [place] [address] Patient: RAMSES BRADSHAW Phone#: : 1965 Age: 55 Gender: F Pt. Type: ER Account: [id number] Location: 052 Ordering: DR. MADISON HAYDEN Exam Date: 09/22/2020/18:11 Family Phys: GEE MERCHANT Charge Code: [id number] Physician: Loving Order #: [id number] DLP Dose#: 57.50 Dictated by: Nemo King MD on 09/22/2020 at 18:25 Approved by: Nemo King MD on 09/22/2020 at 18:[address] [facility] [address] CERVICAL W/O CONTRASTon 0 09-22-2020 CT CERVICAL W/O CONTRAST [place] [address] Patient: RAMSES BRADSHAW Phone#: : 1965 Age: 55 Gender: F Pt. Type: ER Account: [id number] Location: [facility] Ordering: AUTUMN EDWARDS Exam Date: 09/22/2020/20:43 Family Phys: GEE MERCHANT Charge Code: [id number] Physician: Loving Order #: [id number] DLP Dose#: 15.10 mGy PROCEDURE: CT CERVICAL WITHOUT CONTRAST COMPARISON: [facility], CT, CERVICAL W/O CON, 06/27/2018, 18:21. INDICATIONS: Pain. TECHNIQUE: Multi-planar CT images were created without intravenous contrast. All CT scans at this facility use dose modulation, iterative reconstruction, and/or weight based dosing when appropriate to reduce radiation dose to as low as reasonably achievable. IV CONTRAST: No IV contrast used,0ml TOTAL DOSE: 15.1 CTDIvol(mGy) FINDINGS: CRANIOCERVICAL AREA: Normal foramen magnum with no Chiari malformation. PARASPINAL AREA: Normal with no visible mass. BONES: No fracture, pars defect, or osseous lesion. CERVICAL DISC LEVELS: C2-C3: No significant disc/facet abnormality, spinal stenosis, or foraminal stenosis. C3-C4: No significant disc/facet abnormality, spinal stenosis, or foraminal stenosis. C4-C5: No significant disc/facet abnormality, spinal stenosis, or foraminal stenosis. C5-C6: No significant disc/facet abnormality, spinal stenosis, or foraminal stenosis. C6-C7: No significant disc/facet abnormality, spinal stenosis, or foraminal stenosis. C7-T1: No significant disc/facet abnormality, spinal stenosis, or foraminal stenosis. CONCLUSION: No acute disease. Dictated by: Jaqueline Potts MD on 09/23/2020 at 10:08 Continued Report - Page 2 of 2 Patient: RAMSES BRADSHAW Phone#: : 1965 Age: 55 Gender: F Pt. Type: ER Account: [id number] Location: [facility] Ordering: AUTUMN EDWARDS Exam Date: 09/22/2020/20:43 Family Phys: GEE MERCHANT Charge Code: [id number] Physician: Loving Order #: [id number] DLP Dose#: 15.10 mGy Approved by: Jaqueline Potts MD on 09/23/2020 at 10:10 Normal [facility] NT-proBNPon 09-22-2020 Natriuretic peptide B (Bld) [Mass/Vol] 333 pg/mL High 0 - 125 [facility] Comment on above: Performed By: #### 2 42361 ####[facility],[address] [place] [address] TROPONIN I, HIGH SENSITIVITY on 09-22-2020 HS TROPONIN 7.0 pg/mL Normal 0.0 - 51.4 [facility] Comment on above: Performed By: #### 2 93007 #### [facility],[address] [place] [address] NM GASTRIC EMPTYING STUDYon 05-05-2020 NM GASTRIC EMPTYING STUDY ORIGINAL EXAM: NM GASTRIC EMPTYING STUDY 05/05/2020 3:01 PM HISTORY: nausea vomiting TECHNIQUE: Standard meal consisting of: Radiopharmaceutical: Tc-99m Sulfur Colloid po Dose: 2.1 mCi Tc-99m sulfur colloid in 4 oz of Egg Beaters 1 slice of bread, 2 Tsp of jelly 4 oz of water Anterior and posterior images of the stomach for 4 hours Calculate geometric mean of anterior and posterior images Calculate T 1/2 for gastric emptying FINDINGS: The gastric retention at 0.5 hour is 78% (normal value of retention at 0.5 hour is more than 70%). The gastric retention at 1 hour is 51% (normal value of retention at 1 hour is more than 30% and less than 90%). The gastric retention at 2 hours is 19% (normal value of retention at 2 hours is less than 60%). The gastric retention at 3 hours is 2% (normal value of retention at 3 hours is less than 30%). The gastric retention at 4 hours is 2% (normal value of retention at 4 hours is less than 10%). IMPRESSION: Normal gastric emptying. Interpreted By: David Montes Preliminary Report By: David Montes Electronically Signed By: David Montes Dictated Date: 05/05/2020 3:17:30 PM Prelim Date: 05/05/2020 3:17:30 PM Sign Date: 05/05/2020 3:19:32 PM Ordering Provider:Alan Emerson [facility] ([facility] Comprehensive Panelon 2018 ALP [Catalytic activity/Vol] 95 U/L Normal 45-117 [facility] Comment on above: Performed By: #### P 14 #### [facility] [address] [place], [place] [address] Bilirubin [Mass/Vol] 0.4 mg/dL Normal 0.2-1.0 [facility] Comment on above: Performed By: #### P 14 #### [facility] [address] [place], [place] [address] Protein [Mass/Vol] 7.3 g/dL Normal 6.4-8.2 [facility] Comment on above: Performed By: #### P 14 #### [facility] [address] [place], [place] [address] ALT [Catalytic activity/Vol] 21 U/L Normal 12-78 [facility] Comment on above: Performed By: #### P 14 #### [facility] [address] [place], [place] [address] AST [Catalytic activity/Vol] 12 U/L Low 15-37 [facility] Comment on above: Performed By: #### P 14 #### [facility] [address] [place], [place] [address] Creatinine [Mass/Vol] 0.92 mg/dL Normal 0.51-0.95 [facility] Comment on above: Performed By: #### P 14 #### [facility] [address] [place], [place] [address] Glucose [Mass/Vol] 84 mg/dL Normal 70-99 [facility] Comment on above: Performed By: #### P 14 #### [facility] [address] [place], [place] [address] Albumin [Mass/Vol] 3.6 g/dL Normal 3.4-5.0 [facility] Comment on above: Performed By: #### P 14 #### [facility] [address] [place], [place] [address] Anion gap [Moles/Vol] 9 mmol/L Normal 8-16 [facility] Comment on above: Performed By: #### P 14 #### [facility] [address] [place], [place] [address] Calcium [Mass/Vol] 8.9 mg/dL Normal 8.5-10.1 [facility] Comment on above: Performed By: #### P 14 #### [facility] [address] [place], [place] [address] CO2 [Moles/Vol] 28 mmol/L Normal 21-32 [facility] Comment on above: Performed By: #### P 14 #### [facility] [address] [place], [place] [address] Urea nitrogen [Mass/Vol] 10 mg/dL Normal 7-18 [facility] Comment on above: Performed By: #### P 14 #### [facility] [address] [place], [place] [address] Chloride [Moles/Vol] 104 mmol/L Normal 98-107 [facility] Comment on above: Performed By: #### P 14 #### [facility] 1 [place], [place] [address] Potassium [Moles/Vol] 3.8 mmol/L Normal 3.5-5.1 [facility] Comment on above: Performed By: #### P 14 #### [facility] 1 [place], [place] [address] Sodium [Moles/Vol] 137 mmol/L Normal 136-145 [facility] Comment on above: Performed By: #### P 14 #### [facility] 1 [place], [place] [address] Hemogram/Diffon 10-11-2018 Abs Immature Grans 0.20 thou/cmm High 0.00-0.05 [facility] Comment on above: Performed By: #### C BCD1 #### [address] [address] Abs Neut (ANC) 16.32 thou/cmm High 1.56-6.13 [facility] Comment on above: Performed By: #### C BCD1 #### [facility] 1 [place] [address] Abs. Baso 0.07 thou/cmm Normal 0.01-0.08 [facility] Comment on above: Performed By: #### C BCD1 #### [facility] [address] [place] [address] Abs. [place] 1.40 thou/cmm High 0.27-0.70 [facility] Comment on above: Performed By: #### C BCD1 #### [facility] 1 [place] [address] Basophils/100 WBC (Bld) 0.3 % Normal [facility] Comment on above: Performed By: #### C BCD1 #### [place] [address] Eosinophils (Bld) [#/Vol] 0.27 thou/cmm Normal 0.00-0.31 [facility] Comment on above: Performed By: #### C BCD1 #### [place] [address] Eosinophils/100 WBC (Bld) 1.2 % Normal [facility] Comment on above: Performed By: #### C BCD1 #### [place] [address] Immature Grans 0.90 % Normal [facility] Comment on above: Performed By: #### C BCD1 #### [facility] 1 [place] [address] Lymphocytes (Bld) [#/Vol] 3.90 thou/cmm High 1.18-3.74 [facility] Comment on above: Performed By: #### C BCD1 #### [place] [address] Lymphocytes/100 WBC (Bld) 17.6 % Normal [facility] Comment on above: Performed By: #### C BCD1 #### [facility] 1 [place] [address] Monocytes/100 WBC (Bld) 6.3 % Normal [facility] Comment on above: Performed By: #### C BCD1 #### [facility] [address] [place] [address] Seg Neutrophil 73.7 % Normal [facility] Comment on above: Performed By: #### C BCD1 #### [facility] [address] [place] [address] Erythrocyte distribution width (RBC) [Ratio] 14.2 % Normal 11.7-14.4 [facility] Comment on above: Performed By: #### C BCD1 #### [facility] [address] [place] [address] Hematocrit (Bld) [Volume fraction] 42.1 % Normal 34.1-44.9 [facility] Comment on above: Performed By: #### C BCD1 #### [facility] 1 [place] [address] Hemoglobin (Bld) [Mass/Vol] 13.6 g/dL Normal 11.2-15.7 [facility] Comment on above: Performed By: #### C BCD1 #### [facility] [address] [place] [address] MCH (RBC) [Entitic mass] 30.8 pg Normal 25.6-32.2 [facility] Comment on above: Performed By: #### C BCD1 #### [facility] [address] [place] [address] MCHC (RBC) [Mass/Vol] 32.3 % Normal 31.6-34.8 [facility] Comment on above: Performed By: #### C BCD1 #### [facility] [address] [place] [address] MCV (RBC) [Entitic vol] 95.5 fL High 79.4-94.8 [facility] Comment on above: Performed By: #### C BCD1 #### [facility] [address] [place] [address] Platelet mean volume (Bld) [Entitic vol] 8.8 fL Low 9.4-12.3 [facility] Comment on above: Performed By: #### C BCD1 #### [facility] 1 [place] [id number] Platelets (Bld) [#/Vol] 231 thou/cmm Normal 182-369 [facility] Comment on above: Performed By: #### C BCD1 #### [facility] [address] [place] [address] RBC (Bld) [#/Vol] 4.41 mil/cmm Normal 3.93-5.22 [facility] Comment on above: Performed By: #### C BCD1 #### [place] [address] RDW SD 49.8 fl High 36.4-46.3 [facility] Comment on above: Performed By: #### C BCD1 #### [place] [address] WBC (Bld) [#/Vol] 22.15 thou/cmm High 3.98-10.04 [facility] Comment on above: Performed By: #### C BCD1 #### [place] [address] Lipase Bloodon 10-11-2018 Lipase Blood 51 U/L Low 73-393 [facility] Comment on above: Performed By: #### L IP #### [place] [address] MDRD GFRon 10-11-2018 GFR/1.73 sq M predicted among non-blacks MDRD (S/P/Bld) [Vol rate/Area] mL/min/{1.73_m2} Normal >60mL/min/1 .73m2 [facility] Comment on above: Result Comment: If t he patient is , multiply the result by 1.210. Performed By: #### G FR #### [facility] [address] [place] [address] Urinalysis Routineon 019 Bacteria LM.HPF (Urine sed) [#/Area] NONE Normal None [facility] Comment on above: Performed By: #### U RIN2 #### [facility] [address] [place] [address] Ep Cells Urine 0.4 /hpf Normal 0.0-5.0 [facility] Comment on above: Performed By: #### U RIN2 #### [facility] [address] [place] [address] Hyaline Cast 0.3 /lpf Normal 0.0-1.0 [facility] Comment on above: Performed By: #### U RIN2 #### [facility] [address] [place] [address] RBC LM.HPF (Urine sed) [#/Area] 2.4 /[HPF] Normal 0.0-5.0 [facility] Comment on above: Performed By: #### U RIN2 #### [facility] [address] [place] [address] WBC LM.HPF (Urine sed) [#/Area] 0.5 /[HPF] Normal 0.0-5.0 [facility] Comment on above: Performed By: #### U RIN2 #### [facility] [address] [place] [address] Appearance (U) CLEAR Normal [facility] Comment on above: Performed By: #### U RIN2 #### [facility] [address] [place] [address] Bilirubin (U) [Mass/Vol] Negative Normal Negative [facility] Comment on above: Performed By: #### U RIN2 #### [facility] [address] [place] [address] Color (U) YELLOW Normal [facility] Comment on above: Performed By: #### U RIN2 #### [facility] [address] [place] [address] Glucose Ql (U) Negative Normal Negative [facility] Comment on above: Performed By: #### U RIN2 #### [facility] [address] [place] [address] Hemoglobin,Urine Negative Normal Negative [facility] Comment on above: Performed By: #### U RIN2 #### [facility] [address] [place] [address] Ketone Urine Negative Normal Negative [facility] Comment on above: Performed By: #### U RIN2 #### [facility] [address] [place] [address] Leukocytes Esterase Negative Normal Negative [facility] Comment on above: Performed By: #### U RIN2 #### [facility] [address] [place] [address] Nitrites Urine Negative Normal Negative [facility] Comment on above: Performed By: #### U RIN2 #### [facility] [address] [place] [address] pH (U) 6.0 [pH] Normal 5.0-8.0 [facility] Comment on above: Performed By: #### U RIN2 #### [facility] [address] [place] [address] Protein (U) [Mass/Vol] Negative Normal Negative [facility] Comment on above: Performed By: #### U RIN2 #### [facility] [address] [place] [address] Specific [place], Ur 1.018 Normal 1.005-1.030 [facility] Comment on above: Performed By: #### U RIN2 #### [facility] [address] [place] [address] Urobilinogen,Ur 0.2 EU/dL Normal 0.2-1.0 [facility] Comment on above: Performed By: #### U RIN2 #### [place] [address] ED NOTEon 09-04-2018 ED NOTE HNO ID: [id number] Author: Priya (Rn) AKIKO Serrano Service: ? Author Type: Registered Nurse Type: ED Notes Filed: 09/07/2018 4:03 PM Note Text: Emergency Services: ED Call Back Questionnaire SERVICE DATE: 09/04/2018 Are you feeling better? No Any questions about discharge instructions and follow-up care? No Were you able to make a follow up appointment? No, referred to appointment hotline Do you have any further questions? No Is there anything that we could have done differently to improve your ED visit? Yes, you could have given me something stronger for pain. SIGNATURE: Priya Serrano RN PATIENT NAME: Ramses Bradshaw DATE: September 07, 2018 TIME: 3:56 PM [facility] ED NOTE HNO ID: [id number] Author: Davina Abreu RN Service: ? Author Type: Registered Nurse Type: ED Notes Filed: 09/04/2018 3:09 PM Note Text: Patient was very upset with care received stated she is still in the same amount of pain she was when she arrived. I had JOE COREA go back in and talk with patient. She left after talking with A.A. Did not sign paperwork. Patient ambulated out on her own. [facility] ED NOTE HNO ID: [id number] Author: Davina Abreu RN Service: ? Author Type: Registered Nurse Type: ED Notes Filed: 09/04/2018 3:12 PM Note Text: While administering medication. Patient took percocet out of cup and slid it between her two fingers. She then took the rest of the medication. She was not going to take the percocet at that time until addressed to do so. She commented oh I still need to take that. All medication was wittiness ed being taken. [facility] ED NOTE HNO ID: [id number] Author: Davina Abreu RN Service: ? Author Type: Registered Nurse Type: ED Notes Filed: 09/04/2018 2:20 PM Note Text: Patient had injection in lower back last week. After injection having increased pain in left leg. Patient stated pain has not gone away. The day of the injection she fell due to weakness in the leg with no injury. Patient was able to get her self up out of the WC on her own and into bed. [facility] ED PROV NOTEon 09-04-2018 ED PROV NOTE HNO ID: [id number] Author: Scarlett Saavedra (Pa) Service: Emergency Medicine Author Type: Physician [employer] Type: ED Provider Notes Filed: 09/04/2018 3:17 PM Note Text: ED Provider Note Patient Name: Ramses Bradshaw SERVICE DATE: 09/04/18 History Patient presents with: Leg Pain Patient presents with pain to her left low back going down into the buttock and the leg. No noted swelling. She's had this for 2 weeks. Just over a week ago she had an injection to help with the pain but she feels it is not helping. Nothing she is taking seems to be helping. She states she needs something stronger. No history of diabetes. Over week ago she did fall given the pain but was evaluated after that. She has no numbness or tingling that is new no bowel or bladder incontinence or saddle anesthesia. No fever no chill no IV drugs or blood thinners. Otherwise she has no other acute complaints. 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 pacemaker checked at [facility] - Sick sinus syndrome (HCC) - Sleep apnea uses cpap at night PAST SURGICAL HISTORY Procedure Laterality Date - APPENDECTOMY - CARPAL TUNNEL left - HYSTERECTOMY HX - LAPAROSCOPY DIAGNOSTIC - PACEMAKER (PM) 2003 - PAST SURGICAL HISTORY OF lumbar pain injections. - OR ANESTH,LUMBAR SPINE,CORD SURGERY 02/07/2016 L4-L5 fusion; [facility] - REVISE ULNAR NERVE AT ELBOW bilateral- with revisions FAMILY HISTORY Problem Relation Age of Onset - Multiple Sclerosis Father 26 at age 41 - Multiple Sclerosis Daughter 30 dx Mar 2016 - other (orthostatic hypotension) Sister Social History Tobacco Use - Smoking status: Former Smoker Packs/day: 0.50 Years: 25.00 Pack years: 12.50 Types: Cigarettes Last attempt to quit: 05/22/2015 Years since quittin.2 - Smokeless tobacco: Never Used - Tobacco comment: quit 2 years ago Substance and Sexual Activity - Alcohol use: No - Drug use: No Comment: Heavy EtOH use 2000. - Sexual activity: Not on file ALLERGIES Allergen Reactions - Asa [Salicylates] GI Upset - Erythromycin Vomiting Vomiting AND diarrhea - Ibuprofen GI Upset - Latex Other: See Comments Pt reports reaction to Latex, adhesives, EKG stickers w/ skin irritation at times...causes redness AND blisters - Nsaids (Non-Steroid* Diarrhea, Vomiting Review of Systems Constitutional: Negative. Respiratory: Negative. Cardiovascular: Negative. Gastrointestinal: Negative. Genitourinary: Negative. Musculoskeletal: Positive for arthralgias, back pain, gait problem and myalgias. Negative for joint swelling, neck pain and neck stiffness. Skin: Negative. Allergic/Immunologic: Negative for immunocompromised state. Hematological: Negative. Psychiatric/Behavioral: Negative. Physical Exam BP 143/73 Pulse 83 Temp (Src) 98.9 (Oral) Resp 16 Wt 164 lb (74.4kg) SpO2 93% O2 Therapy: Room Air Physical Exam Constitutional: She is oriented to person, place, and time. She appears well-developed and well-nourished. HENT: Head: Normocephalic and atraumatic. Neck: Normal range of motion. Neck supple. Cardiovascular: Intact distal pulses. Musculoskeletal: Normal range of motion. She exhibits tenderness. She exhibits no edema or deformity. Neurological: She is alert and oriented to person, place, and time. Skin: Skin is warm and dry. Psychiatric: She has a normal mood and affect. Nursing note and vitals reviewed. Diagnostic Testing ED Labs Ordered and Reviewed - No data to display Procedures ED Course / Clinical Impression Clinical Impressions as of Sep 04 1516 Sciatica of left side MDM / Disposition / Plan Upon arrival patient appears nontoxic vitals are all stable. No systemic complaint. Multiple years ago she had back surgery. At times she has sciatic issues. She's had left low back/buttock pain going down the leg for 2 weeks. About a week ago she fell she was evaluated x-rays were normal. She's had continued pain. Pain injection last week did not help her. She's been taking [id number]-iegroax medicines with little relief. No history of diabetes no blood thinners no IV drugs or fevers or chills. Nothing concerning of cauda equina or acute surgical process on my exam. She is moving the extremity around without difficulty she hurts from the left buttock down to the leg itself. No skin change no swelling no midline pain. She's moving this extremity without any difficulty and walking without difficulty. She states is keeping her awake at night. Here in the emergency department I did give her first dose of steroids one Percocet and Flexeril. Per nursing report patient actually tried to keep the Percocet in her hand she did not take it. She then took it after she realized we had noticed. I spoke with the patient that she would not be going home on narcotics but I could help for some steroids muscle relaxers. I did discuss with her that she needs to see her previous surgeon she states they are at [facility]. I also discussed with her that she needs to see the person who did her injection over a week ago. She was very upset I would not be giving her something stronger for pain. Again she's walking around without any systemic complaint or neurovascular compromise. She was discharged in stable condition. Disposition The patient was discharged and given RX. Counseled patient regarding suspected diagnosis. As well as the need for follow-up. Discharged home with verbal and written instructions. They were instructed to return as needed for persistent or worsening symptoms or any new concerns. Condition at disposition is stable. SIGNATURE: NATALIE Broderick (Pa) 09/04/18 1517 Normal [facility] Lab Report: Gastrin, Serumon 04-15-2017 gastrin, serum 266 pg/mL High 0-115 [facility] [employer] Work Phone: Lab Report: CBC W/Diff, Auto matedon 04-12-2017 Basophils/100 leukocytes 0.4 % Invalid Interpretation Code 0-1 [facility] [employer] Work Phone: Eosinophils/100 leukocytes 2.2 % Invalid Interpretation Code 0-5 [facility] [employer] Work Phone: Erythrocytes (RBC) 5.05 10*6/uL Invalid Interpretation Code 4.2-5.4 [facility] [employer] Work Phone: Hematocrit (HCT) 45.7 % Invalid Interpretation Code 37-47 [facility] [employer] Work Phone: Hemoglobin (HGB) 15.4 g/dL High 12.0-15.0 [facility] [employer] Work Phone: immature granulocytes, percentage of total cells, blood 0.400 % Invalid Interpretation Code 0.0-0.9 [facility] [employer] Work Phone: Lymphocytes 3.50 X10 3/UL Invalid Interpretation Code 0.83-4.51 [facility] [employer] Work Phone: Lymphocytes/100 leukocytes 28.8 % Invalid Interpretation Code 19-41 [facility] [employer] Work Phone: MCH 30.5 pg Invalid Interpretation Code 27.0-32.0 [facility] [employer] Work Phone: MCHC 33.7 G/GL Invalid Interpretation Code 32-36 [facility] [employer] Work Phone: MCV 90.5 fL Invalid Interpretation Code 81-99 [facility] [employer] Work Phone: Monocytes/100 leukocytes 6.8 % Invalid Interpretation Code 0-10 [facility] [employer] Work Phone: neutrophil count, blood 7.5 X10 3/UL Invalid Interpretation Code 2.0-7.7 [facility] Work Phone: Neutrophils/100 leukocytes 61.4 % Invalid Interpretation Code 47-70 [facility] [employer] Work Phone: Platelets 256 10*3/mm3 Invalid Interpretation Code 150-450 [facility] Work Phone: PMV by North 10.7 fL Invalid Interpretation Code 6.2-12.0 [facility] Work Phone: RDW-CA 13.2 % Invalid Interpretation Code 11.6-14.6 [facility] Work Phone: red blood cell distribution width, size density 43.4 fL Invalid Interpretation Code 35.1-43.9 [facility] [employer] Work Phone: WBC (Leukocytes) 12.2 10*3/uL High 4.4-11.0 [facility] [employer] Work Phone: Lab Report: Comprehensive Nj tabolic Profilon 04-12-2017 Alanine aminotransferase (ALT) 31 U/L Invalid Interpretation Code 13-56 [facility] [employer] Work Phone: Albumin 3.9 g/dL Invalid Interpretation Code 3.2-5.0 [facility] Work Phone: Albumin/Globulin Ratio 1 {ratio} Invalid Interpretation Code 0.9-2.4 [facility] [employer] Work Phone: Alkaline phosphatase (ALP) 103 U/L Invalid Interpretation Code 45-117 [facility] [employer] Work Phone: Anion gap 9 mmol/L Invalid Interpretation Code 5-15 [facility] [employer] Work Phone: Aspartate aminotransferase (AST) 20 U/L Invalid Interpretation Code 15-37 [facility] [employer] Work Phone: Bilirubin (total) 0.20 mg/dL Invalid Interpretation Code 0.20-1.00 [facility] [employer] Work Phone: BUN/Creatinine Ratio 13.7 RATIO Invalid Interpretation Code 10-20 [facility] [employer] Work Phone: [phone] Calcium 9.7 mg/dL Invalid Interpretation Code 8.5-10.1 [facility] [employer] Work Phone: Chloride 108 mmol/L High 98-107 [facility] [employer] Work Phone: [phone] CO2 26.0 mmol/L Invalid Interpretation Code 21.0-32.0 [facility] [employer] Work Phone: [phone] Creatinine 0.88 mg/dL Invalid Interpretation Code 0.55-1.02 [facility] [employer] Work Phone: [phone] eGFR (non-black) 72 mL/min/{1.73_m2} Invalid Interpretation Code >60 [facility] [employer] Work Phone: [phone] eGFR (non-black) 87 mL/min/{1.73_m2} Invalid Interpretation Code >60 [facility] [employer] Work Phone: [phone] Globulin 4.0 g/dL Invalid Interpretation Code 2.2-4.2 [facility] [employer] Work Phone: [phone] Glucose 95 mg/dL Invalid Interpretation Code 74-106 [facility] [employer] Work Phone: [phone] Potassium 3.5 mmol/L Invalid Interpretation Code 3.5-5.1 [facility] [employer] Work Phone: Protein 7.9 g/dL Invalid Interpretation Code 6.4-8.2 [facility] [employer] Work Phone: [phone] Sodium 143 mmol/L Invalid Interpretation Code 136-145 [facility] [employer] Work Phone: Urea nitrogen 12 mg/dL Invalid Interpretation Code 7-18 [facility] [employer] Work Phone: Lab Report: BMPon 03-30-2013 CO2 5 mmol/L Normal 5-15 [facility] [employer] Work Phone: Lab Report: PTon 03-30-2013 INR in blood by coagulation 1.0 {INR} Normal [facility] [employer] Work Phone: prothrombin time, actual/normal, ratio 13.0 SECONDS Normal 11.9-14.4 [facility] Work Phone: Lab Report: Grace 03-30-2013 specific gravity, urine 1.015 Normal 1.002-1.030 [facility] Work Phone: Culture, urine Bacteria identified Cx Nom (U) Lactobacillus sp. [facility] Work Phone: Vital Signs Date Time Vital Sign Value Performing Clinician Faci lity 10-02-2024 13:23-0400 Body height 157.[address] Charla Wadsworth MD Work Phone: [facility] 10-02-2024 13:23-0400 Body mass index (BMI) [Ratio] 41.3 kg/m2 Dr. Charla Wadsworth MD Work Phone: [facility] 10-02-2024 13:23-0400 Body temperature 96.4 [degF] Dr. Charla Wadsworth MD Work Phone: [facility] 10-02-2024 13:23-0400 Body weight 102.[address] Charla Wadsworth MD Work Phone: [facility] 10-02-2024 13:23-0400 Diastolic blood pressure 66 mm[Hg] Dr. Charla Wadsworth MD Work Phone: [facility] 10-02-2024 13:23-0400 Heart rate 67 /min Dr. Charla Wadsworth MD Work Phone: [facility] 10-02-2024 13:23-0400 Respiratory rate 16 /min Dr. Charla Wadsworth MD Work Phone: [facility] 10-02-2024 13:23-0400 SaO2% (BldA) [Mass fraction] 91 % Dr. Charla Wadsworth MD Work Phone: [facility] 10-02-2024 13:23-0400 Systolic blood pressure 102 mm[Hg] Dr. Charla Wadsworth MD Work Phone: [facility] 08-05-2024 09:25-0400 Body height 157.5 cm Butch Mays MD Work Phone: [facility] 08-05-2024 09:25-0400 Body mass index (BMI) [Ratio] 40.97 kg/m2 Butch Mays MD Work Phone: [facility] 08-05-2024 09:25-0400 Body weight 101.61 kg Butch Mays MD Work Phone: [facility] 08-04-2024 14:55-0400 Diastolic blood pressure 72 mm[Hg] Mri Bore/1.5t) [facility] 08-04-2024 14:55-0400 Heart rate 75 /min Mri Bore/1.5t) [facility] 08-04-2024 14:55-0400 Respiratory rate 16 /min Mri Bore/1.5t) [facility] 08-04-2024 14:55-0400 SaO2% (BldA) [Mass fraction] 94 % Mri Bore/1.5t) [facility] 08-04-2024 14:55-0400 Systolic blood pressure 119 mm[Hg] Mri Bore/1.5t) [facility] 07-23-2024 00:03-0400 Body temperature 97.9 [degF] Dr. Charla Wadsworth MD Work Phone: [facility] 07-23-2024 00:03-0400 Diastolic blood pressure 81 mm[Hg] Dr. Charla Wadsworth MD Work Phone: [facility] 07-23-2024 00:03-0400 Heart rate 61 /min Dr. Charla Wadsworth MD Work Phone: [facility] 07-23-2024 00:03-0400 Respiratory rate 18 /min Dr. Charla Wadsworth MD Work Phone: [facility] 07-23-2024 00:03-0400 SaO2% (BldA) [Mass fraction] 93 % Dr. Charla Wadsworth MD Work Phone: [facility] 07-23-2024 00:03-0400 Systolic blood pressure 130 mm[Hg] Dr. Charla Wadsworth MD Work Phone: [facility] 07-22-2024 20:15-0400 Body height 157.[address] Char[facility] Wadsworth MD [facility]: [facility] [facility] 07-22-2024 20:15-0400 Body mass index (BMI) [Ratio] 19.7 kg/m2 Dr. Charla Wadsworth MD Work Phone: [facility] 07-22-2024 20:15-0400 Body weight 48.[address] Charla Wadsworth MD Work Phone: [facility] 07-22-2024 10:08-0400 Body temperature 97.5 [degF] Dr. Charla Wadsworth MD Work Phone: [facility] 07-22-2024 10:08-0400 Diastolic blood pressure 68 mm[Hg] Dr. Charla Wadsworth MD Work Phone: [facility] 07-22-2024 10:08-0400 Heart rate 60 /min Dr. Charla Wadsworth MD Work Phone: [facility] 07-22-2024 10:08-0400 Respiratory rate 14 /min Dr. Charla Wadsworth MD Work Phone: [facility] 07-22-2024 10:08-0400 SaO2% (BldA) [Mass fraction] 96 % Dr. Charla Wadsworth MD Work Phone: [facility] 07-22-2024 10:08-0400 Systolic blood pressure 110 mm[Hg] Dr. Charla Wadsworth MD Work Phone: [facility] 07-02-2024 23:25-0400 Body temperature 98.2 [degF] Dr. Charla Wadsworth MD Work Phone: [facility] 07-02-2024 23:25-0400 Diastolic blood pressure 68 mm[Hg] Dr. Charla Wadsworth MD Work Phone: [facility] 07-02-2024 23:25-0400 Heart rate 72 /min Dr. Charla Wadsworth MD Work Phone: [facility] 07-02-2024 23:25-0400 Respiratory rate 14 /min Dr. Charla Wadsworth MD Work Phone: [facility] 07-02-2024 23:25-0400 SaO2% (BldA) [Mass fraction] 96 % Dr. Charla Wadsworth MD Work Phone: [facility] 07-02-2024 23:25-0400 Systolic blood pressure 116 mm[Hg] Dr. Charla Wadsworth MD Work Phone: [facility] 07-02-2024 14:28-0400 Body height 157.[address] Charla Wadsworth MD Work Phone: [facility] 07-02-2024 14:28-0400 Body mass index (BMI) [Ratio] 42.6 kg/m2 Dr. Charla Wadsworth MD Work Phone: [facility] 07-02-2024 14:28-0400 Body weight 105.[address] Charla Wadsworth MD Work Phone: [facility] 06-29-2024 19:11-0400 Body temperature 98.1 [degF] Dr. Charla Wadsworth MD Work Phone: [facility] 06-29-2024 19:11-0400 Diastolic blood pressure 68 mm[Hg] Dr. Charla Wadsworth MD Work Phone: [facility] 06-29-2024 19:11-0400 Heart rate 75 /min Dr. Charla Wadsworth MD Work Phone: [facility] 06-29-2024 19:11-0400 Respiratory rate 18 /min Dr. Charla Wadsworth MD Work Phone: [facility] 06-29-2024 19:11-0400 SaO2% (BldA) [Mass fraction] 97 % Dr. Charla Wadsworth MD Work Phone: [facility] 06-29-2024 19:11-0400 Systolic blood pressure 104 mm[Hg] Dr. Charla Wadsworth MD Work Phone: [facility] 06-29-2024 17:28-0400 Body height 157.[address] Charla Wadsworth MD Work Phone: [facility] 06-29-2024 17:28-0400 Body mass index (BMI) [Ratio] 43.8 kg/m2 Dr. Charla Wadsworth MD Work Phone: [facility] 06-29-2024 17:28-0400 Body weight 108.[address] Charla Wadsworth MD Work Phone: [facility] 06-13-2024 19:51-0400 Body temperature 97.2 [degF] Dr. Charla Wadsworth MD Work Phone: [facility] 06-13-2024 19:51-0400 Diastolic blood pressure 79 mm[Hg] Dr. Charla Wadsworth MD Work Phone: [facility] 06-13-2024 19:51-0400 Heart rate 68 /min Dr. Charla Wadsworth MD Work Phone: [facility] 06-13-2024 19:51-0400 Respiratory rate 25 /min Dr. Charla Wadsworth MD Work Phone: [facility] 06-13-2024 19:51-0400 SaO2% (BldA) [Mass fraction] 94 % Dr. Charla Wadsworth MD Work Phone: [facility] 06-13-2024 19:51-0400 Systolic blood pressure 144 mm[Hg] Dr. Charla Wadsworth MD Work Phone: [facility] 06-13-2024 18:31-0400 Body height 157.[address] Charla Wadsworth MD Work Phone: [facility] 06-13-2024 18:31-0400 Body mass index (BMI) [Ratio] 41.8 kg/m2 Dr. Charla Wadsworth MD Work Phone: [facility] 06-13-2024 18:31-0400 Body weight 103.[address] Charla Wadsworth MD Work Phone: [facility] 06-11-2024 07:46-0400 Body mass index (BMI) [Ratio] 36.6 kg/m2 Dr. Charla Wadsworth MD Work Phone: [facility] 06-11-2024 07:46-0400 Body weight 90.[address] Charla Wadsworth MD Work Phone: [facility] 06-11-2024 07:46-0400 Diastolic blood pressure 66 mm[Hg] Dr. Charla Wadsworth MD Work Phone: [facility] 06-11-2024 07:46-0400 Heart rate 60 /min Dr. Charla Wadsworth MD Work Phone: [facility] 06-11-2024 07:46-0400 Respiratory rate 18 /min Dr. Charla Wadsworth MD Work Phone: [facility] 06-11-2024 07:46-0400 Systolic blood pressure 102 mm[Hg] Dr. Charla Wadsworth MD Work Phone: [facility] 05-21-2024 23:25-0400 Body temperature 98 [degF] Dr. Charla Wadsworth MD Work Phone: [facility] 05-21-2024 23:25-0400 Diastolic blood pressure 74 mm[Hg] Dr. Charla Wadsworth MD Work Phone: [facility] 05-21-2024 23:25-0400 Heart rate 68 /min Dr. Charla Wadsworth MD Work Phone: [facility] 05-21-2024 23:25-0400 Respiratory rate 17 /min Dr. Charla Wadsworth MD Work Phone: [facility] 05-21-2024 23:25-0400 SaO2% (BldA) [Mass fraction] 97 % Dr. Charla Wadsworth MD Work Phone: [facility] 05-21-2024 23:25-0400 Systolic blood pressure 130 mm[Hg] Dr. Charla Wadsworth MD Work Phone: [facility] 05-21-2024 19:24-0400 Body height 157.[address] Charla Wadsworth MD Work Phone: [facility] 05-13-2024 03:00-0500 Diastolic blood pressure 67 mm[Hg] Dr. Charla Wadsworth MD Work Phone: [facility] 05-13-2024 03:00-0500 Heart rate 61 /min Dr. Charla Wadsworth MD Work Phone: [facility] 05-13-2024 03:00-0500 Respiratory rate 16 /min Dr. Charla Wadsworth MD Work Phone: [facility] 05-13-2024 03:00-0500 SaO2% (BldA) [Mass fraction] 96 % Dr. Charla Wadsworth MD Work Phone: [facility] 05-13-2024 03:00-0500 Systolic blood pressure 122 mm[Hg] Dr. Charla Wadsworth MD Work Phone: [facility] 05-13-2024 01:00-0500 Body temperature 98.2 [degF] Dr. Charla Wadsworth MD Work Phone: [facility] 05-12-2024 22:20-0500 Body mass index (BMI) [Ratio] 43.2 kg/m2 Dr. Charla Wadsworth MD Work Phone: [facility] 05-12-2024 22:20-0500 Body weight 107.[address] Charla Wadsworth MD Work Phone: [facility] 05-04-2024 15:55-0500 Body temperature 98.4 [degF] Dr. Charla Wadsworth MD Work Phone: [facility] 05-04-2024 15:55-0500 Diastolic blood pressure 71 mm[Hg] Dr. Charla Wadsworth MD Work Phone: [facility] 05-04-2024 15:55-0500 Heart rate 65 /min Dr. Charla Wadsworth MD Work Phone: [facility] 05-04-2024 15:55-0500 Respiratory rate 16 /min Dr. Charla Wadsworth MD Work Phone: [facility] 05-04-2024 15:55-0500 SaO2% (BldA) [Mass fraction] 98 % Dr. Charla Wadsworth MD Work Phone: [facility] 05-04-2024 15:55-0500 Systolic blood pressure 109 mm[Hg] Dr. Charla Wadsworth MD Work Phone: [facility] 05-04-2024 14:30-0500 Body mass index (BMI) [Ratio] 40.8 kg/m2 Dr. Charla Wadsworth MD Work Phone: [facility] 05-04-2024 14:30-0500 Body weight 101.[address] Charla Wadsworth MD Work Phone: [facility] 04-20-2024 10:21-0500 Body temperature 98 [degF] Dr. Charla Wadsworth MD Work Phone: [facility] 04-20-2024 10:21-0500 Diastolic blood pressure 78 mm[Hg] Dr. Charla Wadsworth MD Work Phone: [facility] 04-20-2024 10:21-0500 Heart rate 62 /min Dr. Charla Wadsworth MD Work Phone: [facility] 04-20-2024 10:21-0500 Respiratory rate 17 /min Dr. Charla Wadsworth MD Work Phone: [facility] 04-20-2024 10:21-0500 SaO2% (BldA) [Mass fraction] 95 % Dr. Charla Wadsworth MD Work Phone: [facility] 04-20-2024 10:21-0500 Systolic blood pressure 122 mm[Hg] Dr. Charla Wadsworth MD Work Phone: [facility] 04-15-2024 19:43-0500 Body mass index (BMI) [Ratio] 40.3 kg/m2 Dr. Charla Wadsworth MD Work Phone: [facility] 04-15-2024 19:43-0500 Body weight [address] Charla Wadsworth MD Work Phone: [facility] 04-15-2024 17:28-0500 Body temperature 97.9 [degF] Dr. Charla Wadsworth MD Work Phone: [facility] 04-15-2024 17:28-0500 Diastolic blood pressure 88 mm[Hg] Dr. Charla Wadsworth MD Work Phone: [facility] 04-15-2024 17:28-0500 Heart rate 72 /min Dr. Charla Wadsworth MD Work Phone: [facility] 04-15-2024 17:28-0500 Respiratory rate 18 /min Dr. Charla Wadsworth MD Work Phone: [facility] 04-15-2024 17:28-0500 SaO2% (BldA) [Mass fraction] 99 % Dr. Charla Wadsworth MD Work Phone: [facility] 04-15-2024 17:28-0500 Systolic blood pressure 135 mm[Hg] Dr. Charla Wadsworth MD Work Phone: [facility] 04-05-2024 10:05-0500 Inhaled oxygen flow rate 2 L/min Dr. Charla Wadsworth MD Work Phone: [facility] 04-05-2024 10:05-0500 SaO2% (BldA) [Mass fraction] 93 % Dr. Charla Wadsworth MD Work Phone: [facility] 04-05-2024 10:00-0500 Heart rate 91 /min Dr. Charla Wadsworth MD Work Phone: [facility] 04-05-2024 10:00-0500 Respiratory rate 18 /min Dr. Charla Wadsworth MD Work Phone: [facility] 04-05-2024 09:36-0500 Body temperature 98.1 [degF] Dr. Charla Wadsworth MD Work Phone: [facility] 04-05-2024 09:36-0500 Diastolic blood pressure 75 mm[Hg] Dr. Charla Wadsworth MD Work Phone: [facility] 04-05-2024 09:36-0500 Systolic blood pressure 130 mm[Hg] Dr. Charla Wadsworth MD Work Phone: [facility] 04-04-2024 10:11-0500 Body weight 101.[address] Charla Wadsworth MD Work Phone: [facility] 04-03-2024 18:49-0500 Body mass index (BMI) [Ratio] 40.9 kg/m2 Dr. Charla Wadsworth MD Work Phone: [facility] 01-27-2024 10:47-0500 Body temperature 97.8 [degF] Dr. Charla Wadsworth MD Work Phone: [facility] 01-27-2024 10:47-0500 Diastolic blood pressure 58 mm[Hg] Dr. Charla Wadsworth MD Work Phone: [facility] 01-27-2024 10:47-0500 Heart rate 60 /min Dr. Charla Wadsworth MD Work Phone: [facility] 01-27-2024 10:47-0500 Respiratory rate 14 /min Dr. Charla Wadsworth MD Work Phone: [facility] 01-27-2024 10:47-0500 SaO2% (BldA) [Mass fraction] 94 % Dr. Charla Wadsworth MD Work Phone: [facility] 01-27-2024 10:47-0500 Systolic blood pressure 106 mm[Hg] Dr. Charla Wadsworth MD Work Phone: [facility] 07-12-2023 03:22-0400 Body temperature 97.6 [degF] Dr. Charla Wadsworth Work Phone: [facility] 07-12-2023 03:22-0400 Diastolic blood pressure 66 mm[Hg] Dr. Charla Wadsworth Work Phone: [facility] 07-12-2023 03:22-0400 Heart rate 64 /min Dr. Charla Wadsworth Work Phone: [facility] 07-12-2023 03:22-0400 Respiratory rate 16 /min Dr. Charla Wadsworth Work Phone: [facility] 07-12-2023 03:22-0400 SaO2% (BldA) [Mass fraction] 99 % Dr. Charla Wadsworth Work Phone: [facility] 07-12-2023 03:22-0400 Systolic blood pressure 124 mm[Hg] Dr. Charla Wadsworth Work Phone: [facility] 07-12-2023 00:38-0400 Body height 157.[address] Charla Wadsworth Work Phone: [facility] 07-12-2023 00:38-0400 Body mass index (BMI) [Ratio] 37 kg/m2 Dr. Charla Wadsworth Work Phone: [facility] 07-12-2023 00:38-0400 Body weight 91.[address] Charla Wadsworth Work Phone: [facility] 05-24-2023 20:18-0400 Body mass index (BMI) [Ratio] 0 kg/m2 Dr. Charla Wadsworth Work Phone: [facility] 05-24-2023 20:18-0400 Body weight [address] Charla Wadsworth Work Phone: [facility] 05-24-2023 15:44-0400 Body height 157.[address] Charla Wadsworth Work Phone: [facility] 05-24-2023 15:44-0400 Body temperature 98.4 [degF] Dr. Charla Wadsworth Work Phone: [facility] 05-24-2023 15:44-0400 Diastolic blood pressure 73 mm[Hg] Dr. Charla Wadsworth Work Phone: [facility] 05-24-2023 15:44-0400 Heart rate 56 /min Dr. Charla Wadsworth Work Phone: [facility] 05-24-2023 15:44-0400 Respiratory rate 16 /min Dr. Charla Wadsworth Work Phone: [facility] 05-24-2023 15:44-0400 SaO2% (BldA) [Mass fraction] 97 % Dr. Charla Wadsworth Work Phone: [facility] 05-24-2023 15:44-0400 Systolic blood pressure 110 mm[Hg] Dr. Charla Wadsworth Work Phone: [facility] 03-26-2023 13:08-0500 Body mass index (BMI) [Ratio] 33.7 kg/m2 Dr. Charla Wadsworth Work Phone: [facility] 03-26-2023 13:08-0500 Body temperature 97.5 [degF] Dr. Charla Wadsworth Work Phone: [facility] 03-26-2023 13:08-0500 Body weight 83.[address] Charla Wadsworth Work Phone: [facility] 03-26-2023 13:08-0500 Diastolic blood pressure 62 mm[Hg] Dr. Charla Wadsworth Work Phone: [facility] 03-26-2023 13:08-0500 Heart rate 57 /min Dr. Charla Wadsworth Work Phone: [facility] 03-26-2023 13:08-0500 Respiratory rate 16 /min Dr. Charla Wadsworth Work Phone: [facility] 03-26-2023 13:08-0500 SaO2% (BldA) [Mass fraction] 97 % Dr. Charla Wadsworth Work Phone: [facility] 03-26-2023 13:08-0500 Systolic blood pressure 118 mm[Hg] Dr. Charla Wadsworth Work Phone: [facility] 02-14-2023 08:44-0500 Body mass index (BMI) [Ratio] 33.3 kg/m2 Dr. Charla Wadsworth Work Phone: [facility] 02-14-2023 08:44-0500 Body weight 82.[address] Charla Wadsworth Work Phone: [facility] 02-14-2023 08:44-0500 Diastolic blood pressure 84 mm[Hg] Dr. Charla Wadsworth Work Phone: [facility] 02-14-2023 08:44-0500 Heart rate 60 /min Dr. Charla Wadsworth Work Phone: [facility] 02-14-2023 08:44-0500 Respiratory rate 18 /min Dr. Charla Wadsworth Work Phone: [facility] 02-14-2023 08:44-0500 SaO2% (BldA) [Mass fraction] 96 % Dr. Charla Wadsworth Work Phone: [facility] 02-14-2023 08:44-0500 Systolic blood pressure 119 mm[Hg] Dr. Charla Wadsworth Work Phone: [facility] 01-30-2023 10:03-0500 Body height 157.[address] Charla Wadsworth Work Phone: [facility] 01-30-2023 10:03-0500 Body mass index (BMI) [Ratio] 33.5 kg/m2 Dr. Charla Wadsworth Work Phone: [facility] 01-30-2023 10:03-0500 Body temperature 98 [degF] Dr. Charla Wadsworth Work Phone: [facility] 01-30-2023 10:03-0500 Body weight [address] Charla Wadsworth Work Phone: [facility] 01-30-2023 10:03-0500 Diastolic blood pressure 74 mm[Hg] Dr. Charla Wadsworth Work Phone: [facility] 01-30-2023 10:03-0500 Heart rate 71 /min Dr. Charla Wadsworth Work Phone: [facility] 01-30-2023 10:03-0500 Respiratory rate 16 /min Dr. Charla Wadsworth Work Phone: [facility] 01-30-2023 10:03-0500 SaO2% (BldA) [Mass fraction] 97 % Dr. Charla Wadsworth Work Phone: [facility] 01-30-2023 10:03-0500 Systolic blood pressure 138 mm[Hg] Dr. Charla Wadsworth Work Phone: [facility] 12-03-2022 23:00-0400 Diastolic blood pressure 72 mm[Hg] Dr. Charla Wadsworth Work Phone: [facility] 12-03-2022 23:00-0400 Systolic blood pressure 148 mm[Hg] Dr. Charla Wadsworth Work Phone: [facility] 12-03-2022 22:00-0400 Respiratory rate 16 /min Dr. Charla Wadsworth Work Phone: [facility] 12-03-2022 16:27-0400 Body height 157.[address] Charla Wadsworth Work Phone: [facility] 12-03-2022 16:27-0400 Body mass index (BMI) [Ratio] 33.9 kg/m2 Dr. Charla Wadsworth Work Phone: [facility] 12-03-2022 16:27-0400 Body temperature 97.6 [degF] Dr. Charla Wadsworth Work Phone: [facility] 12-03-2022 16:27-0400 Body weight 84.[address] Charla Wadsworth Work Phone: [facility] 12-03-2022 16:27-0400 Heart rate 53 /min Dr. Charla Wadsworth Work Phone: [facility] 12-03-2022 16:27-0400 SaO2% (BldA) [Mass fraction] 98 % Dr. Charla Wadsworth Work Phone: [facility] 11-24-2022 20:23-0400 Body height 157.[address] Charla Wadsworth Work Phone: [facility] 11-24-2022 20:23-0400 Body mass index (BMI) [Ratio] 34.2 kg/m2 Dr. Charla Wadsworth Work Phone: [facility] 11-24-2022 20:23-0400 Body temperature 96 [degF] Dr. Charla Wadsworth Work Phone: [facility] 11-24-2022 20:23-0400 Body weight [address] Charla Wadsworth Work Phone: [facility] 11-24-2022 20:23-0400 Diastolic blood pressure 77 mm[Hg] Dr. Charla Wadsworth Work Phone: [facility] 11-24-2022 20:23-0400 Heart rate 74 /min Dr. Charla Wadsworth Work Phone: [facility] 11-24-2022 20:23-0400 Respiratory rate 16 /min Dr. Charla Wadsworth Work Phone: [facility] 11-24-2022 20:23-0400 SaO2% (BldA) [Mass fraction] 96 % Dr. Charla Wadsworth Work Phone: [facility] 11-24-2022 20:23-0400 Systolic blood pressure 122 mm[Hg] Dr. Charla Wadsworth Work Phone: [facility] 11-15-2022 12:21-0400 Body height 157.[address] Charla Wadsworth Work Phone: [facility] 11-15-2022 12:21-0400 Body temperature 96.9 [degF] Dr. Charla Wadsworth Work Phone: [facility] 11-15-2022 12:21-0400 Diastolic blood pressure 83 mm[Hg] Dr. Charla Wadsworth Work Phone: [facility] 11-15-2022 12:21-0400 Heart rate 63 /min Dr. Charla Wadsworth Work Phone: [facility] 11-15-2022 12:21-0400 Respiratory rate 18 /min Dr. Charla Wadsworth Work Phone: [facility] 11-15-2022 12:21-0400 SaO2% (BldA) [Mass fraction] 99 % Dr. Charla Wadsworth Work Phone: [facility] 11-15-2022 12:21-0400 Systolic blood pressure 104 mm[Hg] Dr. Charla Wadsworth Work Phone: [facility] 11-13-2022 21:04-0400 Body height 157.[address] Charla Wadsworth Work Phone: [facility] 11-13-2022 21:04-0400 Body mass index (BMI) [Ratio] 33.3 kg/m2 Dr. Charla Wadsworth Work Phone: [facility] 11-13-2022 21:04-0400 Body temperature 97.5 [degF] Dr. Charla Wadsworth Work Phone: [facility] 11-13-2022 21:04-0400 Body weight 82.[address] Charla Wadsworth Work Phone: [facility] 11-13-2022 21:04-0400 Diastolic blood pressure 90 mm[Hg] Dr. Charla Wadsworth Work Phone: [facility] 11-13-2022 21:04-0400 Heart rate 86 /min Dr. Charla Wadsworth Work Phone: [facility] 11-13-2022 21:04-0400 Respiratory rate 15 /min Dr. Charla Wadsworth Work Phone: [facility] 11-13-2022 21:04-0400 SaO2% (BldA) [Mass fraction] 97 % Dr. Charla Wadsworth Work Phone: [facility] 11-13-2022 21:04-0400 Systolic blood pressure 127 mm[Hg] Dr. Charla Wadsworth Work Phone: [facility] 08-28-2022 13:17-0400 Body mass index (BMI) [Ratio] 34.7 kg/m2 Dr. Charla Wadsworth Work Phone: [facility] 08-28-2022 13:17-0400 Body weight 86.[address] Charla Wadsworth Work Phone: [facility] 08-28-2022 13:17-0400 Diastolic blood pressure 66 mm[Hg] Dr. Charla Wadsworth Work Phone: [facility] 08-28-2022 13:17-0400 Heart rate 54 /min Dr. Charla Wadsworth Work Phone: [facility] 08-28-2022 13:17-0400 Respiratory rate 20 /min Dr. Charla Wadsworth Work Phone: [facility] 08-28-2022 13:17-0400 SaO2% (BldA) [Mass fraction] 95 % Dr. Charla Wadsworth Work Phone: [facility] 08-28-2022 13:17-0400 Systolic blood pressure 102 mm[Hg] Dr. Charla Wadsworth Work Phone: [facility] 05-16-2022 08:03-0500 Body height 157.[address] Charla Wadsworth Work Phone: [facility] 05-16-2022 08:03-0500 Body mass index (BMI) [Ratio] 34.2 kg/m2 Dr. Charla Wadsworth Work Phone: [facility] 05-16-2022 08:03-0500 Body temperature 98.4 [degF] Dr. Charla Wadsworth Work Phone: [facility] 05-16-2022 08:03-0500 Body weight 84.[address] Charla Wadsworth Work Phone: [facility] 05-16-2022 08:03-0500 Diastolic blood pressure 82 mm[Hg] Dr. Charla Wadsworth Work Phone: [facility] 05-16-2022 08:03-0500 Heart rate 60 /min Dr. Charla Wadsworth Work Phone: [facility] 05-16-2022 08:03-0500 Respiratory rate 14 /min Dr. Charla Wadsworth Work Phone: [facility] 05-16-2022 08:03-0500 SaO2% (BldA) [Mass fraction] 95 % Dr. Charla Wadsworth Work Phone: [facility] 05-16-2022 08:03-0500 Systolic blood pressure 130 mm[Hg] Dr. Charla Wadsworth Work Phone: [facility] 01-22-2022 15:31-0500 Body height 158.[address] Charla Wadsworth Work Phone: [facility] Work Phone: 01-22-2022 15:31-0500 Body mass index (BMI) [Ratio] 35.4 kg/m2 Dr. Charla Wadsworth Work Phone: [facility] 01-22-2022 15:31-0500 Body weight 89.[address] Charla Wadsworth Work Phone: [facility] 01-22-2022 15:31-0500 Diastolic blood pressure 74 mm[Hg] Dr. Charla Wadsworth Work Phone: [facility] 01-22-2022 15:31-0500 Heart rate 59 /min Dr. Charla Wadsworth Work Phone: [facility] 01-22-2022 15:31-0500 Respiratory rate 18 /min Dr. Charla Wadsworth Work Phone: [facility] 01-22-2022 15:31-0500 SaO2% (BldA) [Mass fraction] 96 % Dr. Charla Wadsworth Work Phone: [facility] 01-22-2022 15:31-0500 Systolic blood pressure 113 mm[Hg] Dr. Charla Wadsworth Work Phone: [facility] 01-22-2022 14:37-0500 Body mass index (BMI) [Ratio] 36.1 kg/m2 Dr. Charla Wadsworth Work Phone: [facility] 01-22-2022 14:37-0500 Body temperature 97 [degF] Dr. Charla Wadsworth Work Phone: [facility] 01-22-2022 14:37-0500 Body weight 91.[address] Charla Wadsworth Work Phone: [facility] 01-22-2022 14:37-0500 Diastolic blood pressure 73 mm[Hg] Dr. Charla Wadsworth Work Phone: [facility] 01-22-2022 14:37-0500 Heart rate 59 /min Dr. Charla Wadsworth Work Phone: [facility] 01-22-2022 14:37-0500 Respiratory rate 16 /min Dr. Charla Wadsworth Work Phone: [facility] 01-22-2022 14:37-0500 SaO2% (BldA) [Mass fraction] 94 % Dr. Charla Wadsworth Work Phone: [facility] 01-22-2022 14:37-0500 Systolic blood pressure 121 mm[Hg] Dr. Charla Wadsworth Work Phone: [facility] 11-03-2021 14:42-0400 Body height 158.[address] Charla Wadsworth Work Phone: [facility] Work Phone: 11-03-2021 14:42-0400 Body mass index (BMI) [Ratio] 35.8 kg/m2 Dr. Charla Wadsworth Work Phone: [facility] Work Phone: 11-03-2021 14:42-0400 Body temperature 96.4 [degF] Dr. Charla Wadsworth Work Phone: [facility] Work Phone: 11-03-2021 14:42-0400 Body weight 90.[address] Charla Wadsworth Work Phone: [facility] Work Phone: 11-03-2021 14:42-0400 Diastolic blood pressure 66 mm[Hg] Dr. Charla Wadsworth Work Phone: [facility] Work Phone: 11-03-2021 14:42-0400 Heart rate 52 /min Dr. Charla Wadsworth Work Phone: [facility] Work Phone: 11-03-2021 14:42-0400 Respiratory rate 16 /min Dr. Charla Wadsworth Work Phone: [facility] Work Phone: 11-03-2021 14:42-0400 SaO2% (BldA) [Mass fraction] 96 % Dr. Charla Wadsworth Work Phone: [facility] Work Phone: 11-03-2021 14:42-0400 Systolic blood pressure 110 mm[Hg] Dr. Charla Wadsworth Work Phone: [facility] Work Phone: 10-25-2021 11:54-0400 Body temperature 98.4 [degF] Dr. Charla Wadsworth Work Phone: [facility] Work Phone: 10-25-2021 11:54-0400 Diastolic blood pressure 88 mm[Hg] Dr. Charla Wadsworth Work Phone: [facility] Work Phone: 10-25-2021 11:54-0400 Heart rate 59 /min Dr. Charla Wadsworth Work Phone: [facility] Work Phone: 10-25-2021 11:54-0400 Respiratory rate 18 /min Dr. Charla Wadsworth Work Phone: [facility] Work Phone: 10-25-2021 11:54-0400 SaO2% (BldA) [Mass fraction] 96 % Dr. Charla Wadsworth Work Phone: [facility] Work Phone: 10-25-2021 11:54-0400 Systolic blood pressure 173 mm[Hg] Dr. Charla Wadsworth Work Phone: [facility] Work Phone: 10-24-2021 11:14-0400 Body weight 92.[address] Charla Wadsworth Work Phone: [facility] Work Phone: 10-23-2021 14:55-0400 Body mass index (BMI) [Ratio] 36.6 kg/m2 Dr. Charla Wadsworth Work Phone: [facility] Work Phone: 10-22-2021 20:50-0400 Diastolic blood pressure 94 mm[Hg] Dr. Charla Wadsworth Work Phone: [facility] Work Phone: 10-22-2021 20:50-0400 Systolic blood pressure 155 mm[Hg] Dr. Charla Wadsworth Work Phone: [facility] Work Phone: 10-22-2021 15:32-0400 Body temperature 97.1 [degF] Dr. Charla Wadsworth Work Phone: [facility] Work Phone: 10-22-2021 15:32-0400 Heart rate 71 /min Dr. Charla Wadsworth Work Phone: [facility] Work Phone: 10-22-2021 15:32-0400 Respiratory rate 18 /min Dr. Charla Wadsworth Work Phone: [facility] Work Phone: 10-22-2021 15:32-0400 SaO2% (BldA) [Mass fraction] 97 % Dr. Charla Wadsworth Work Phone: [facility] Work Phone: 10-22-2021 15:29-0400 Body height 157.[address] Charla Wadsworth Work Phone: [facility] Work Phone: 10-22-2021 15:29-0400 Body mass index (BMI) [Ratio] 42 kg/m2 Dr. Charla Wadsworth Work Phone: [facility] Work Phone: 10-22-2021 15:29-0400 Body weight 104.[address] Charla Wadsworth Work Phone: [facility] Work Phone: 08-17-2021 11:41-0400 Body height 152.[address] Charla Wadsworth Work Phone: [facility] Work Phone: 08-17-2021 11:41-0400 Body weight 95.[address] Charla Wadsworth Work Phone: [facility] Work Phone: 08-16-2021 10:02-0400 Body mass index (BMI) [Ratio] 41.2 kg/m2 Dr. Charla Wadsworth Work Phone: [facility] Work Phone: 08-15-2021 08:18-0400 Body mass index (BMI) [Ratio] 41.2 kg/m2 Dr. Charla Wadsworth Work Phone: [facility] Work Phone: 08-15-2021 08:18-0400 Body weight 95.[address] Charla Wadsworth Work Phone: [facility] Work Phone: 08-15-2021 08:18-0400 Diastolic blood pressure 75 mm[Hg] Dr. Charla Wadsworth Work Phone: [facility] Work Phone: 08-15-2021 08:18-0400 Heart rate 64 /min Dr. Charla Wadsworth Work Phone: [facility] Work Phone: 08-15-2021 08:18-0400 Respiratory rate 16 /min Dr. Charla Wadsworth Work Phone: [facility] Work Phone: 08-15-2021 08:18-0400 SaO2% (BldA) [Mass fraction] 94 % Dr. Charla Wadsworth Work Phone: [facility] Work Phone: 08-15-2021 08:18-0400 Systolic blood pressure 120 mm[Hg] Dr. Charla Wadsworth Work Phone: [facility] Work Phone: 08-15-2021 08:18-0400 Body mass index (BMI) [Ratio] 41.2 kg/m2 Dr. Charla Wadsworth Work Phone: [facility] Work Phone: 08-15-2021 08:18-0400 Body weight 95.[address] Charla Wadsworth Work Phone: [facility] Work Phone: 08-15-2021 08:18-0400 Diastolic blood pressure 75 mm[Hg] Dr. Charla Wadsworth Work Phone: [facility] Work Phone: 08-15-2021 08:18-0400 Heart rate 64 /min Dr. Charla Wadsworth Work Phone: [facility] Work Phone: 08-15-2021 08:18-0400 Respiratory rate 16 /min Dr. Charla Wadsworth Work Phone: [facility] Work Phone: 08-15-2021 08:18-0400 SaO2% (BldA) [Mass fraction] 94 % Dr. Charla Wadsworth Work Phone: [facility] Work Phone: 08-15-2021 08:18-0400 Systolic blood pressure 120 mm[Hg] Dr. Charla Wadsworth Work Phone: [facility] Work Phone: 08-05-2020 08:56-0400 Body mass index (BMI) [Ratio] 35 kg/m2 Dr. Charla Wadsworth Work Phone: [facility] Work Phone: Encounters Encounter Date Encounter Type Care Provider Facility Start: 10-05-2024 ambulatory Charla Kunz ty:[facility] Start: 10-02-2024 End: 10-02-2024 Janeth Rosado NP-C -[facility] Work Phone: Start: 10-02-2024 End: 10-02-[address] Charla Wadsworth MD Work Phone: -[facility] Start: 09-14-2024 ambulatory Kareen Bradshaw NP Facili ty:[facility] Start: 08-17-2024 End: 08-17-[address] Charla Wadsworth MD Work Phone: [facility] Work Phone: Start: 08-17-2024 End: 08-17-2024 Dr. Samuel Keys MD -[facility] Work Phone: Start: 08-10-2024 End: 2024 Telephone encounter Butch Mays MD Work Phone: [facility] Comment on above: Appointment Start: 08-05-2024 End: 08-05-2024 Patient encounter procedure Butch Mays MD Work Phone: [facility] Comment on above: Weakness of both low er extremities (Primary Dx); Obesity, Class III, BMI 40-49.9 (morbid obesity) Start: 08-05-2024 End: 08-05-2024 ambulatory BUTCH MAYS Facility:[id number] Start: 08-04-2024 End: 08-04-2024 ambulatory NACHO DUNN Facility:[facility] Start: 08-04-2024 End: 08-04-2024 Subsequent hospital visit by physician [facility] Comment on above: Arrived Spinal stenosis of c ervical region [M48.02] Start: 07-22-2024 End: 07-23-2024 Dr. Charla Wadsworth MD Work Phone: -Emergency Department Work Phone: Start: 07-22-2024 End: 07-23-2024 Emergency department patient visit Dr. Charla Wadsworth MD Work Phone: [facility] Work Phone: Start: 07-22-2024 End: 07-22-2024 Dr. Charla Wadsworth MD -[facility] Work Phone: Start: 07-22-2024 End: 07-22-[address] Charla Wadsworth MD Work Phone: [facility] Work Phone: Start: 07-13-2024 End: 07-13-2024 Telephone encounter Butch Mays MD Work Phone: [facility] Comment on above: Orders (Received mes joanne form Dr. Mays that he would like MRI's ordered as STAT) Start: 07-07-2024 End: 07-07-2024 Orders Only Butch Mays MD Work Phone: [facility] Comment on above: Spinal stenosis of c ervical region (Primary Dx); Thoracic myelopathy Start: 07-06-2024 ambulatory Kareen Bradshaw NP Facili ty:[facility] Start: 07-03-2024 End: 07-04-2024 Evaluation and management of inpatient REMUS A [facility] Facility:[facility] Start: 07-02-2024 End: 07-03-2024 Dr. Charla Wadsworth MD Work Phone: -Emergency Department Work Phone: Start: 07-02-2024 End: 07-03-2024 Emergency department patient visit Dr. Charla Wadsworth MD Work Phone: [facility] Work Phone: Start: 07-01-[address] GEE MERCHANT MD Facility:A Start: 06-29-2024 End: 06-29-2024 Dr. Charla Wadsworth MD Work Phone: -Emergency Department Work Phone: Start: 06-29-2024 End: 06-29-2024 Emergency department patient visit Dr. Charla Wadsworth MD Work Phone: [facility] Work Phone: Start: 06-29-2024 Kareen Bradshaw NP-C -[facility] Work Phone: Start: 06-29-2024 ambulatory Kareen Bradshaw ACCELERATOR TECHNICIAN Facili ty:[facility] Start: 06-26-2024 End: 06-26-[address] Charla Wadsworth MD Work Phone: [facility] Work Phone: Start: 06-26-2024 End: 06-26-2024 Dr. Keon France MD -[facility] Start: 06-26-2024 End: 06-26-2024 ambulatory Kareen Bradshaw NP Facility:[facility] Start: 06-13-2024 End: 06-13-2024 Dr. Charla Wadsworth MD Work Phone: -Emergency Department Work Phone: Start: 06-13-2024 End: 06-13-2024 Emergency department patient visit Dr. Charla Wadsworth MD Work Phone: [facility] Work Phone: Start: 06-11-2024 End: 06-11-2024 Kareen Bradshaw ACCELERATOR TECHNICIAN-C -Laboratory Work Phone: Start: 06-11-2024 End: 06-11-[address] Charla Wadsworth MD Work Phone: [facility] Work Phone: Start: 06-11-2024 End: 06-11-2024 Imelda Hernandez [facility] Work Phone: Start: 06-11-2024 End: 06-11-2024 ambulatory Kareen Bradshaw ACCELERATOR TECHNICIAN Facility:[facility] Start: 05-21-2024 End: 05-22-2024 Dr. Charla Wadsworth MD Work Phone: -Emergency Department Work Phone: Start: 05-21-2024 End: 05-22-2024 Emergency department patient visit Dr. Charla Wadsworth MD Work Phone: [facility] Work Phone: Start: 05-18-2024 End: 05-18-2024 ambulatory Samuel Keys Facility:[facility] Start: 05-18-2024 End: 05-18-2024 Dr. Samuel Keys MD -[facility] Work Phone: Start: 05-12-2024 End: 05-13-2024 Dr. Charla Wadsworth MD Work Phone: -Emergency Department Work Phone: Start: 05-12-2024 End: 05-13-2024 Emergency department patient visit [facility] Facility:[facility] Start: 05-04-2024 ambulatory Keon France Facility:[facility] Start: 05-04-2024 End: 05-04-2024 Dr. Gregory Xie DO -Emergency [facility] t Work Phone: Start: 05-04-2024 End: 05-04-2024 Emergency department patient visit [facility] Facility:[facility] Start: 04-21-2024 Dr. Charla Wadsworth MD -[facility] Start: 04-21-2024 ambulatory [facility] Facili ty:[facility] Start: 04-20-2024 End: 04-20-2024 Dr. Charla Wadsworth MD -Laboratory, [place] Start: 04-20-2024 End: 04-20-2024 Dr. Charla Wadsworth MD -[facility] Work Phone: Start: 04-20-2024 End: 04-20-2024 ambulatory [facility] Facility:[facility] Start: 04-20-2024 End: 04-20-2024 ambulatory [facility] Facility:[facility] Start: 04-15-2024 End: 04-15-2024 Dr. Gigi Barton MD -Emergency Departmen t Work Phone: Start: 04-15-2024 End: 04-15-2024 Emergency department patient visit [facility] Facility:[facility] Start: 04-05-2024 Dr. Autumn Gorman MD - [facility] Work Phone: Start: 04-04-2024 Dr. Autumn Groman MD - [facility] Work Phone: Start: 04-03-2024 ambulatory Tita Winn [facility] Start: 04-03-2024 End: 04-05-2024 Evaluation and management of inpatient [facility] Facility:[facility] Start: 04-03-2024 End: 04-05-2024 Dr. Autumn Gorman MD -Medical Surgical 3 Work Phone: Start: 03-31-2024 Encounter for preprocedural laboratory examination [facility] Start: 03-17-2024 ambulatory Imelda Hernandez Facility: [facility] Start: 03-16-2024 ambulatory Gautam H Roof ACCELERATOR TECHNICIAN Facility :[facility] Start: 02-25-2024 ambulatory Gautam H Roof ACCELERATOR TECHNICIAN Facility :[facility] Start: 02-20-2024 End: 02-20-2024 Dr. Alan Mack MD -Cat Scan, [facility] Work Phone: Start: 02-20-2024 End: 02-20-2024 ambulatory Alan Mack Facility:[facility] Start: 02-17-2024 End: 02-17-2024 ambulatory Samuel Keys Facility:[facility] Start: 02-17-2024 End: 02-17-2024 Dr. Samuel Keys MD -[facility] Work Phone: Start: 01-27-2024 End: 01-27-2024 Dr. Charla Wadsworth MD -[facility] Work Phone: Start: 01-27-2024 End: 01-27-2024 ambulatory [facility] Facility:[facility] Start: 01-10-2024 End: 01-10-2024 Emergency department patient visit [facility] Facility:[facility] Start: 12-09-2023 End: 12-09-2023 ambulatory [facility] Start: 12-04-2023 End: 12-04-2023 Emergency department patient visit [facility] Facility:[facility] Start: 12-02-2023 ambulatory Rosemarie DIAZ Facility:[facility] Start: 12-02-2023 End: 12-02-2023 ambulatory Samuel Ludmila Facility:[facility] Start: 11-29-2023 ambulatory Samuel Ludmila [facility] Start: 11-18-2023 End: 11-18-2023 ambulatory [place] Ludmila Facility:[facility] Start: 11-14-2023 End: 11-14-2023 ambulatory [facility] [place] Facility:[facility] Start: 11-12-2023 End: 11-12-2023 ambulatory Candy Hsu ACCELERATOR TECHNICIAN Facility:[facility] Start: 11-12-2023 End: 11-12-2023 ambulatory [facility] Facility:[facility] Start: 11-06-2023 End: 11-06-2023 ambulatory [facility] Facility:[facility] Start: 11-04-2023 Encounter for genera l adult medical examination without abnormal findings [facility] Start: 11-04-2023 End: 11-04-2023 ambulatory [facility] Facility:[facility] Start: 11-03-2023 End: 11-04-2023 ambulatory [facility] Facility:[facility] Start: 10-28-2023 End: 10-28-2023 ambulatory [facility] Facility:[facility] Start: 10-25-2023 End: 10-25-2023 ambulatory Ilya Cao Facility:[facility] Start: 10-10-2023 End: 10-10-2023 ambulatory [facility] Facility:[facility] Start: 07-12-2023 End: 07-12-2023 Emergency department patient visit Dr. Charla Wadsworth Work Phone: [facility]-Emergency Department Work Phone: Start: 06-20-2023 End: 06-20-[address] Charla Wadsworth Work Phone: [facility] Work Phone: Start: 05-24-2023 End: 05-24-2023 Emergency department patient visit Dr. Charla Wadsworth Work Phone: [facility]-Emergency Department Work Phone: Start: 03-26-2023 End: 03-26-[address] Charla Wadsworth Work Phone: [facility] Work Phone: Start: 03-22-2023 End: 03-22-[address] Charla Wadsworth Work Phone: [facility] Work Phone: Start: 02-18-2023 End: 02-18-2023 Non-patient / Non-visit Dr. Charla Wadsworth Work Phone: [facility] Work Phone: Start: 02-14-2023 End: 02-14-[address] Charla Wadsworth Work Phone: [facility] Work Phone: Start: 01-30-2023 End: 01-30-[address] Charla Wadsworth Work Phone: [facility] Work Phone: Start: 01-30-2023 End: 01-30-[address] Charla Wadsworth Work Phone: [facility] Work Phone: Start: 12-10-2022 End: 12-10-[address] Charla Wadsworth Work Phone: [facility]-Cat Pending Sale To [facility], [facility] Work Phone: Start: 12-03-2022 End: 12-03-2022 Emergency department patient visit Dr. Charla Wadsworth Work Phone: [facility]-Emergency Department Work Phone: Start: 11-24-2022 End: 11-24-2022 Emergency department patient visit Dr. Charla Wadsworth Work Phone: [facility]-Emergency Department Work Phone: Start: 11-15-2022 End: 11-15-2022 Emergency department patient visit Dr. Charla Wadsworth Work Phone: [facility]-Emergency Department Work Phone: Start: 11-13-2022 End: 11-13-2022 Emergency department patient visit Dr. Charla Wadsworth Work Phone: [facility]-Emergency Department Work Phone: Start: 10-09-2022 End: 10-09-[address] Charla Wadsworth Work Phone: [facility]-Outpatient Bone Densitometry Work Phone: Start: 08-28-2022 End: 08-28-[address] Charla Wadsworth Work Phone: [facility] Work Phone: Start: 05-16-2022 End: 05-16-[address] Charla Wadsworth Work Phone: [facility] Work Phone: Start: 05-16-2022 End: 05-16-[address] Charla Wadsworth Work Phone: [facility] [place] Start: 05-16-[address] Susanne Wadsworth Work Phone: [facility] Start: 05-16-2022 End: 05-16-2022 Encounter for general adult medical examination without abnormal findings Dr. Charla Wadsworth Work Phone: [facility] Start: 05-16-2022 End: 05-16-[address] Charla Wadsworth Work Phone: [facility] Start: 02-20-2022 End: 02-20-[address] Charla Daigle Phone: [facility] Start: 01-22-2022 End: 01-22-[address] Charla Wadsworth Work Phone: [facility] Start: 01-22-2022 End: 01-22-[address] Charla Wadsworth Work Phone: [facility] Work Phone: Start: 01-22-2022 End: 01-22-[address] Charla Wadsworth Work Phone: [facility] Start: 11-22-2021 End: 11-22-[address] Charla Wadsworth Work Phone: [facility] Start: 11-03-2021 End: 11-03-[address] Charla Wadsworth Work Phone: [facility] Start: 10-25-2021 Non-patient / Non-visit Dr. Letha Wadsworth Work Phone: [facility] Inpatient Physicians Start: 10-24-2021 Non-patient / Non-visit Dr. Letha Wadsworth Work Phone: [facility] Start: 10-23-2021 Non-patient / Non-visit Dr. Letha Wadsworth Work Phone: [facility] Inpatient Physicians Start: 10-23-2021 End: 10-25-2021 Evaluation and management of inpatient Dr. Charla Wadsworth Work Phone: [facility]-Medical Surgical 3 Start: 10-22-2021 End: 10-22-2021 Emergency department patient visit Dr. Charla Wadsworth Work Phone: [facility]-Emergency Department Start: 09-12-[address] Wilma Wadsworth Work Phone: [facility]-Physical Therapy Start: 08-17-2021 End: 08-17-2021 Admission to same day surgery center Dr. Charla Wadsworth Work Phone: [facility]-Catalogue Illustrator/Special Procedures Start: 08-15-2021 End: 08-15-[address] Charla Wadsworth Work Phone: [facility]-Radiology, [facility] Start: 08-15-[address] Wilma Wadsworth Work Phone: [facility]-Physical Therapy Start: 04-24-2021 End: 04-24-[address] Charla Wadsworth Work Phone: [facility] Start: 03-01-[address] Susanne Wadsworth Work Phone: [facility] Start: 09-22-2020 End: 09-23-2020 ambulatory GEE GAUTAM [facility] Start: 12-14-2019 End: 12-14-2019 Subsequent hospital visit by physician Dev Bridges Work Phone: [facility] Comment on above: Other malignant neur oendocrine tumors; Family history of colon cancer Procedures Date Procedure Procedure Detail Performing Clinician Start: 08-04-2024 End: 08-04-2024 Prgrmg dev eval implantable subq lead dfb system Nacho Dunn MD Work Phone: Start: 08-04-2024 Mri spinal canal cer vical w/o contrast dalilal Butch Mays MD Work Phone: Start: 07-22-2024 Computed tomography of abdomen and pelvis with intravenous contrast Dr. Charla Wadsworth MD Work Phone: Start: 07-22-2024 Blood count smear mc rscp w/mnl difrntl wbc count Dr. Charla Wadsworth MD Work Phone: Start: 07-22-[address] Charla Wadsworth MD Work Phone: Start: 07-22-2024 Mean corpuscular hem oglobin concentration determination Dr. Charla Wadsworth MD Work Phone: Start: 07-22-2024 Nucleated red blood cell count procedure Dr. Charla Wadsworth MD Work Phone: Start: 07-22-2024 Platelet mean volume determination Dr. Charla Wadsworth MD Work Phone: Start: 07-02-2024 Blood count smear mc rscp w/mnl difrntl wbc count Dr. Charla Wadsworth MD Work Phone: Start: 07-02-[address] Charla Wadsworth MD Work Phone: Start: 07-02-2024 Mean corpuscular hem oglobin concentration determination Dr. Charla Wadsworth MD Work Phone: Start: 07-02-2024 Nucleated red blood cell count procedure Dr. Charla Wadsworth MD Work Phone: Start: 07-02-2024 Platelet mean volume determination Dr. Charla Wadsworth MD Work Phone: Start: 06-13-2024 Computed tomography of thoracic spine without contrast Dr. Charla Wadsworth MD Work Phone: Start: 06-13-2024 Plain X-ray of scapula Dr. Charla Wadsworth MD Work Phone: Start: 06-11-2024 Blood count smear mc rscp w/mnl difrntl wbc count Dr. Charla Wadsworth MD Work Phone: Start: 06-11-2024 Mean corpuscular hem oglobin concentration determination Dr. Charla Wadsworth MD Work Phone: Start: 06-11-2024 Nucleated red blood cell count procedure Dr. Charla Wadsworth MD Work Phone: Start: 06-11-2024 Platelet mean volume determination Dr. Charla Wadsworth MD Work Phone: Start: 05-12-2024 Urine microscopy: red cells Dr. Charla Wadsworth MD Work Phone: Start: 05-12-2024 Urnls dip stick/tabl et reagent auto microscopy Dr. Charla Wadsworth MD Work Phone: Start: 05-12-2024 CT of abdomen and pe lvis without contrast Dr. Charla Wadsworth MD Work Phone: Start: 05-12-2024 Blood count smear mc rscp w/mnl difrntl wbc count Dr. Charla Wadsworth MD Work Phone: Start: 05-12-[address] Charla Wadsworth MD Work Phone: Start: 05-12-2024 Mean corpuscular hem oglobin concentration determination Dr. Charla Wadsworth MD Work Phone: Start: 05-12-2024 Nucleated red blood cell count procedure Dr. Charla Wadsworth MD Work Phone: Start: 05-12-2024 Platelet mean volume determination Dr. Charla Wadsworth MD Work Phone: Start: 05-12-[address] Wilma Wadsworth MD Work Phone: Start: 05-04-2024 Anion gap measurement Marck Wadsworth MD Work Phone: Start: 05-04-2024 Blood count smear mc rscp w/mnl difrntl wbc count Dr. Charla Wadsworth MD Work Phone: Start: 05-04-2024 BUN/Creatinine ratio Dr Spike Wadsworth MD Work Phone: Start: 05-04-2024 Calculation of international normalized ratio Dr. Charla Wadsworth MD Work Phone: Start: 05-04-[address] Charla Wadsworth MD Work Phone: Start: 05-04-2024 Mean corpuscular hem oglobin concentration determination Dr. Charla Wadsworth MD Work Phone: Start: 05-04-2024 Measurement of renal function Dr. Charla Wadsworth MD Work Phone: Start: 05-04-2024 Nucleated red blood cell count procedure Dr. Charla Wadsworth MD Work Phone: Start: 05-04-2024 Platelet mean volume determination Dr. Charla Wadsworth MD Work Phone: Start: 04-20-2024 Urine microscopy: red cells Dr. Charla Wadsworth MD Work Phone: Start: 04-20-2024 Urnls dip stick/tabl et reagent auto microscopy Dr. Charla Wadsworth MD Work Phone: Start: 04-20-2024 Anion gap measurement Marck Wadsworth MD Work Phone: Start: 04-20-2024 Blood count smear mc rscp w/mnl difrntl wbc count Dr. Charla Wadsworth MD Work Phone: Start: 04-20-2024 BUN/Creatinine ratio Dr Spike Wadsworth MD Work Phone: Start: 04-20-2024 Mean corpuscular hem oglobin concentration determination Dr. Charla Wadsworth MD Work Phone: Start: 04-20-2024 Measurement of renal function Dr. Charla Wadsworth MD Work Phone: Start: 04-20-2024 Nucleated red blood cell count procedure Dr. Charla Wadsworth MD Work Phone: Start: 04-20-2024 Platelet mean volume determination Dr. Charla Wadsworth MD Work Phone: Start: 04-05-2024 Anion gap measurement D justin Wadsworth MD Work Phone: Start: 04-05-2024 Blood count smear mc rscp w/mnl difrntl wbc count Dr. Charla Wadsworth MD Work Phone: Start: 04-05-2024 BUN/Creatinine ratio Dr Spike Wadsworth MD Work Phone: Start: 04-05-[address] Charla Wadsworth MD Work Phone: Start: 04-05-2024 Mean corpuscular hem oglobin concentration determination Dr. Charla Wadsworth MD Work Phone: Start: 04-05-2024 Measurement of renal function Dr. Charla Wadsworth MD Work Phone: Start: 04-05-2024 Nucleated red blood cell count procedure Dr. Charla Wadsworth MD Work Phone: Start: 04-05-2024 Platelet mean volume determination Dr. Charla Wadsworth MD Work Phone: Start: 04-03-2024 Carbon dioxide measu rement, partial pressure Dr. Charla Wadsworth MD Work Phone: Start: 04-03-2024 Gases blood o2 satur ation only direct heather Dr. Charla Wadsworth MD Work Phone: Start: 04-03-2024 Measurement of parti al pressure of oxygen in blood Dr. Charla Wadsworth MD Work Phone: Start: 04-03-[address] Charla Wadsworth MD Work Phone: Start: 04-03-2024 X-ray of chest, PA a nd lateral views Dr. Charla Wadsworth MD Work Phone: Start: 04-03-[address] Charla Wadsworth MD Work Phone: Start: 04-03-2024 Dr. Binh Wadsworth MD Work Phone: Start: 02-20-2024 CT of abdomen with contrast Dr. Charla Wadsworth MD Work Phone: Start: 07-12-2023 Plain chest X-ray Dr. Susanne Wadsworth Work Phone: Start: 12-10-2022 CT of pelvis without contrast Dr. Charla Wadsworth Work Phone: Start: 12-03-2022 CT angiography of ch est with contrast Dr. Charla Wadsworth Work Phone: Start: 12-03-2022 Plain chest X-ray Dr. Susanne Wadsworth Work Phone: Start: 11-24-2022 Radiologic examinati on of knee Dr. Charla Wadsworth Work Phone: Start: 11-15-2022 Plain x-ray of pelvi s and lower extremity Dr. Charla Wadsworth Work Phone: Start: 11-13-2022 Plain x-ray of elbow Dr Spike Wadsworth Work Phone: Start: 11-13-2022 Plain x-ray of pelvi s and lower extremity Dr. Charla Wadsworth Work Phone: Start: 11-13-2022 Plain x-ray of wrist Dr Spike Wadsworth Work Phone: Start: 10-09-2022 Dual energy X-ray absorptiometry Dr. Charla Wadsworth Work Phone: Start: 10-09-2022 Screening mammography D justin Wadsworth Work Phone: Start: 01-22-[address] Binh Wasdworth Work Phone: Start: 11-22-2021 Computed tomography of abdomen and pelvis with intravenous contrast Dr. Charla Wadsworth Work Phone: Start: 10-23-[address] Spike Wadsworth Work Phone: Start: 10-23-2021 CT of head without contrast Dr. Charla Wadsworth Work Phone: Start: 08-15-2021 Plain chest X-ray Dr. Susanne Wadsworth Work Phone: Start: 04-24-2021 Plain x-ray of pelvi s and lower extremity Dr. Charla Wadsworth Work Phone: Start: 04-24-2021 X-ray of lumbosacral spine Dr. Charla Wadsworth Work Phone: Start: 09-23-2020 Urinalysis [facility] Comment on above: Result Comment: URIN ALYSIS Performed By: #### [id number] #### [facility],[address] [place] [address] Start: 04-10-2013 End: 04-10-2013 Nurse, Teaching, Wound Check (no charge) Samuel S Ludmila, MD Start: 03-30-2013 End: 03-30-2013 Nurse, Teaching, Wound Check (no charge) Samuel Keys MD Start: 03-12-2013 End: 03-30-2013 *BMP Samuel Keys MD Start: 03-12-2013 End: 03-30-2013 *UA - Urinalysis w/o Micro Samuel Keys MD Start: 03-12-2013 End: 03-30-2013 CBC W Auto Differential panel - Blood Samuel Keys MD Start: 03-12-2013 End: 03-30-2013 Coagulation factor induced.INR assay in platelet poor plasma Samuel Keys MD Urine culture Dr. Charla Wadsworth Work Phone: Plan of Treatment Date Care Activity Detail Author Start: 10-05-[address] [facility] Start: 09-15-2024 End: 09-15-2024 Patient encounter procedure 09/15/2024 11:40 AM EDT Appointment [facility] [place], [place] [id number] DUE TO PT IMPLANT- IF APPT NEEDS TO BE RESCHEDULED IT MUST BE SENT TO THE FOLLOWING STAFF MESSAGE ADDRESS: IMAGING IMPLANTS [[id number]]. PACEMAKER and stimulator approved to schedule by: bereket [facility] Comment on above: DUE TO PT IMPLANT- I F APPT NEEDS TO BE RESCHEDULED IT MUST BE SENT TO THE FOLLOWING STAFF MESSAGE ADDRESS: IMAGING IMPLANTS [[id number]]. PACEMAKER and stimulator approved to schedule by: bereket Start: 09-15-2024 End: 09-15-2024 Patient encounter procedure 09/15/2024 10:20 AM EDT Appointment [facility] [place], [place] [id number] DUE TO PT IMPLANT- IF APPT NEEDS TO BE RESCHEDULED IT MUST BE SENT TO THE FOLLOWING STAFF MESSAGE ADDRESS: IMAGING IMPLANTS [[id number]]. PACEMAKER and stimulator approved to schedule by: bereket [facility] Comment on above: DUE TO PT IMPLANT- I F APPT NEEDS TO BE RESCHEDULED IT MUST BE SENT TO THE FOLLOWING STAFF MESSAGE ADDRESS: IMAGING IMPLANTS [[id number]]. PACEMAKER and stimulator approved to schedule by: bereket Start: 09-08-[address] [facility] Start: 08-05-2024 End: 08-05-2024 Patient encounter procedure 08/05/2024 10:00 AM EDT Office Visit [facility] [address] [place] [address] DR RANDLE KAIN [address] [place] [address] Butch Mays MD [address] [place] [address] go over MRI resutls [facility] Comment on above: go over MRI resutls Start: 07-22-2024 [facility] Start: 07-20-2024 End: 2025 MR Cervical spine WO contrast MRI CERVICAL SPINE WO IVCON Radiology STAT Spinal stenosis of cervical region Expected: 07/20/2024, Expires: 2025 [facility] Work Phone: Comment on above: Expected: 07/20/2024 , Expires: 2025 Start: 07-20-2024 End: 2025 MR Thoracic spine WO contrast MRI THORACIC SPINE WO IVCON Radiology STAT Thoracic myelopathy Expected: 07/20/2024, Expires: 2025 [facility] Comment on above: Expected: 07/20/2024 , Expires: 2025 Start: 07-15-2024 End: 07-15-2024 Patient encounter procedure 07/15/2024 9:30 AM EDT Office Visit [facility] [address] [place] [address] DR RANDLE [address] [place] [address] Butch Mays MD [address] [place], [place] [id number] follow up after hospital visit, go over MRI results [facility] Comment on above: follow up after hosp ital visit, go over MRI results Start: 07-02-2024 [facility] Start: 07-02-2024 Hospital admission, emergency, from emergency room, medical nature [facility] Start: 06-29-2024 [facility] Start: 06-13-2024 [facility] Start: 05-21-2024 [facility] Start: 05-13-2024 [facility] Start: 05-13-2024 [facility] Start: 05-04-2024 [facility] Start: 05-04-2024 [facility] Start: 04-21-2024 Patient referral [facility] Work Phone: Start: 04-15-2024 [facility] Start: 04-13-2024 Urine microalbumin profile DTaP,Tdap,Td Vaccine (2 - Td or Tdap) [facility] Start: 04-06-2024 Referral to service [facility] Start: 04-05-2024 Patient discharge [facility] Start: 04-04-2024 Contact precautions [facility] Start: 04-04-2024 Respiratory secretio n precautions [facility] Start: 04-04-2024 Referral to service [facility] Start: 04-03-2024 Continuous positive airway pressure ventilation treatment [facility] Start: 04-03-2024 Following clinical pathway protocol [facility] Start: 04-03-2024 End: 04-03-[address] [facility] Start: 04-03-2024 Assessment of risk o f venous thromboembolism [facility] Start: 04-03-2024 Incentive spirometry [place] Start: 04-03-2024 Inhalation therapy procedure [facility] Start: 04-03-2024 Insertion of cathete r into peripheral vein [facility] Start: 04-03-2024 Oxygen therapy [facility] Start: 04-03-2024 Providing care accor ding to standard [facility] Start: 04-03-2024 Provision of activit y privileges [facility] Start: 04-03-2024 Referral to occupati onal therapist [facility] Start: 04-03-2024 Referral to service [facility] Start: 04-03-2024 Tobacco use cessatio n education [facility] Start: 04-03-2024 Admission procedure [facility] Start: 04-03-2024 Patient referral to dietitian [facility] Start: 11-10-2023 Covid-19 Vaccine () Covid-19 Vaccine () [facility] Start: 07-12-2023 [facility] Start: 03-26-2023 Patient referral [facility] Work Phone: Start: 01-30-2023 Patient referral [facility] Work Phone: Start: 12-03-2022 [facility] Start: 05-16-2022 Patient referral [facility] Work Phone: Start: 10-25-2021 Patient discharge [facility] Work Phone: Start: 10-24-2021 Consultation [facility] Work Phone: Start: 10-23-2021 End: 10-24-[address] [facility] Work Phone: Start: 10-23-2021 Referral to occupati onal therapist [facility] Work Phone: Start: 10-23-2021 Referral to service [facility] Work Phone: Start: 10-23-2021 Following clinical pathway protocol [facility] Work Phone: Start: 10-23-2021 Ambulation without limitation [facility] Work Phone: Start: 10-23-2021 Assessment of risk o f venous thromboembolism [facility] Work Phone: Start: 10-23-2021 Incentive spirometry [place] Work Phone: Start: 10-23-2021 Insertion of cathete r into peripheral vein [facility] Work Phone: Start: 10-23-2021 Oxygen therapy [facility] Work Phone: Start: 10-23-2021 Providing care accor ding to standard [facility] Work Phone: Start: 10-23-2021 Referral to service [facility] Work Phone: Start: 10-23-2021 Admission procedure [facility] Work Phone: Start: 10-23-2021 Patient referral to dietitian [facility] Work Phone: Start: 01-04-2020 End: 01-04-2020 Telehealth Ancillary 01/04/2020 Telehealth Ancillary Genetics Deepika Lopes, [facility] [place] [address] [facility] Start: 11-10-2019 FLU (#1) FLU (#1) [facility] Start: 11-10-2015 Pneumococcal Vaccine : 50+ (2 of 2 - PCV) Pneumococcal Vaccine: 50+ (2 of 2 - PCV) [facility] Start: 08-13-2015 Shingrix Vaccine (1 of 2) Elise grix Vaccine (1 of 2) [facility] Start: 03-12-2013 End: 03-30-2013 *BMP *BMP [facility] Work Phone: Start: 03-12-2013 End: 03-30-2013 *UA - Urinalysis w/o Micro *UA - Urinalysis w/o Micro [facility] Work Phone: Start: 03-12-2013 End: 03-30-2013 CBC W Auto Differential panel - Blood *CBC without Diff [facility] Work Phone: Start: 03-12-2013 End: 03-12-2013 Chest x-ray X-Ray, Chest, PA & Lateral [facility] Work Phone: Start: 03-12-2013 End: 03-30-2013 Coagulation factor induced.INR assay in platelet poor plasma *PT/INR [facility] Work Phone: Start: 03-12-2013 End: 03-12-2013 Electrocardiogram, complete EKG (In office) [facility] Work Phone: Start: 03-12-2013 End: 04-02-2013 Pacemaker Generator Change Pacemaker Generator Change [facility] Work Phone: Start: 2010 Screening for malign ant neoplasm of colon [facility] Start: 2005 Screening for malign ant neoplasm of breast Mammogram Screening [facility] Start: 1986 Microscopic observat ion Cyto stain Nom (Cvx) Pap Smear [facility] Start: 1986 Screening for malign ant neoplasm of cervix Cervical Cancer Screening [facility] Start: 1984 Hepatitis B (1 of 3 - Risk 3-dose series) Hepatitis B (1 of 3 - Risk 3-dose series) [facility] Start: 1984 Hepatitis B Vaccine (1 of 3 - 19+ 3-dose series) Hepatitis B Vaccine (1 of 3 - 19+ 3-dose series) [facility] Start: 1984 Urine microalbumin profile DTaP,Tdap,Td Vaccine (1 - Tdap) [facility] Start: 08-13-1983 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 Disease Visit Annual PCP Team Chronic Disease Visit [facility] Start: 08-13-1983 Anxiety Screening Anxiety Screening [facility] Start: 08-13-1983 BP Controlled (<130/80) BP Controlle d (<130/80) [facility] Start: 08-13-1983 Depression Screening Depression Scre ening [facility] Start: 08-13-1983 Hepatitis B surface antibody level LDL Cholesterol [facility] Start: 08-13-1983 Hepatitis C screening Hepatitis C Sc reening [facility] Start: 08-13-1983 HIV screening HIV Screening [facility] Start: 1981 MenB (1 of 2 - MenB 2-Dose Series) MenB (1 of 2 - MenB 2-Dose Series) [facility] Start: 08-13-1975 Diabetic foot examination Diabetic F oot Exam [facility] Start: 08-13-1975 Glaucoma screening Dilated Retinal E xam [facility] Start: 08-13-1975 Hepatitis B screening Urine Albumin:Creatinine Ratio [facility] Start: 1972 Tetanus Diphtheria a nd Pertussis Vaccines (1 - Tdap) Tetanus Diphtheria and Pertussis Vaccines (1 - Tdap) [facility] Start: 1970 Hemoglobin A1c measurement HbA1C [facility] Start: 1966 Hepatitis A (1 of 2 - Risk 2-dose series) Hepatitis A (1 of 2 - Risk 2-dose series) [facility] Start: 1966 MMR (1 of 1 - Standa rd series) MMR (1 of 1 - Standard series) [facility] Start: 1966 Varicella (1 of 2 - 2-dose childhood series) Varicella (1 of 2 - 2-dose childhood series) [facility] Bilirubin measuremen t, urine [facility] Work Phone: CARDIAC IMPLANTABLE DEVICE CHECK [facility] Work Phone: Catheterization of l eft heart [facility] Work Phone: DXA Bone [Mass/Area] Bone density [facility] End: 12-14-2019 Genetic Sendout: Common Hereditary Cancers Panel Genetic Sendout: Common Hereditary Cancers Panel Lab Timed Other malignant neuroendocrine tumors Family history of colon cancer 1 Occurrences starting 12/14/2019 until 12/14/2019 [facility] Comment on above: 1 Occurrences starti ng 12/14/2019 until 12/14/2019 Genetic Sendout: Com mon Hereditary Cancers Panel Genetic Sendout: Common Hereditary Cancers Panel Lab Routine Other malignant neuroendocrine tumors Family history of colon cancer 12/14/2019 1:15 PM EDT [facility] Hemoglobin [Presence ] in Urine [facility] Work Phone: Lipid 1996 panel - S maisha or Plasma [facility] Measurement of keton es in urine using dipstick [facility] Work Phone: MG Breast - bilatera l Screening [facility] Work Phone: MG Breast - bilatera l Screening [facility] Microscopic urinalysis [facility] Work Phone: End: 08-06-2025 MR Cervical spine WO contrast MRI CERVICAL SPINE WO IVCON Radiology Routine Spinal stenosis of cervical region 1 Occurrences starting 07/07/2024 until 08/06/2025 [facility] Work Phone: Comment on above: 1 Occurrences starti ng 07/07/2024 until 08/06/2025 End: 08-06-2025 MR Thoracic spine WO contrast MRI THORACIC SPINE WO IVCON Radiology Routine Thoracic myelopathy 1 Occurrences starting 07/07/2024 until 08/06/2025 [facility] Comment on above: 1 Occurrences starti ng 07/07/2024 until 08/06/2025 NM Heart Views W str ess and W radionuclide IV [facility] Patient Education [facility] Work Phone: Patient referral [facility] Work Phone: pH of Urine [facility] Work Phone: Polysomnography [facility] Specific gravity of Urine [place] Work Phone: Urinalysis, blood, qualitative [facility] Work Phone: Urine dipstick for glucose [facility] Work Phone: Urine dipstick for leukocyte esterase [facility] Work Phone: Urine dipstick for nitrite [facility] Work Phone: Urine dipstick for protein [facility] Work Phone: Urine examination [facility] Work Phone: Urine microscopy: epithelial cells [facility] Work Phone: Urine Microscopy: wh ite cells [facility] Work Phone: Urobilinogen [Presen ce] in Urine [facility] Work Phone: US Carotid arteries [facility] US Heart [facility] Immunizations Immunization Date Immunization Notes Care Provider Alex bateman 04-04-2024 influenza, seasonal, injectable, preservative free Dr. Charla Wadsworth MD Work Phone: [facility] 03-26-2023 influenza, injectabl e, quadrivalent, preservative free Dr. Charla Wadsworth Work Phone: [facility] 12-02-2020 influenza, injectabl e, quadrivalent, preservative free Dr. Charla Wadsworth Work Phone: [facility] 12-02-2020 influenza, seasonal, injectable Dr. Charla Wadsworth Work Phone: [facility] 07-20-2020 Covid (Zane & Zane) Dr. Charla Wadsworth Work Phone: [facility] 01-07-2020 Flucelvax Quad 2020 (PF) (flu vac qs 2019(4 yr up)CD(PF)) 60 mcg ([address] Charla Wadsworth Work Phone: [facility] Work Phone: 01-07-2020 influenza, injectable,quadrivalent, preservative free, pediatric Dr. Charla Wadsworth Work Phone: [facility] 10-22-2018 influenza, injectabl e, quadrivalent, preservative free Dr. Charla Wadsworth Work Phone: [facility] 10-22-2018 influenza, seasonal, injectable Dr. Charla Wadsworth Work Phone: [facility] 12-18-[address] Charla Wadsworth Work Phone: [facility] 11-09-[address] Charla Wadsworth Work Phone: [facility] 11-09-2014 pneumococcal polysaccharide vaccine, [address] Charla [place] Work Phone: [facility] Payers Date Payer Category Payer Self-pay [id number] 2023 Medicaid [id number] 2023 Medicaid [id number] 2023 Medicare (Managed Care) 1.2. [id number] 2023 Unknown [id number] 2019 [place] [id number] 2019-Present [address] [place] [address] [id number] [address] [facility] HUMAN MEDICARE [id number] 2019-Present [address] [address] [place] [address] [id number] 2016 Medicaid [id number] 2013 Medicare [id number] 1965 Unknown [id number] 2.16.840.1.280668.3.579.2.6 51 1965 Unknown [id number] 2.16.840.1.683017.3.579.2.6 27 Unknown [id number] 2.16.840.1.704457.3.579.2.4 62 Unknown [id number] 2.16.840.1.139033.3.579.2.4 62 Unknown [id number] 2.16.840.1.811692.3.579.2.4 62 Unknown [id number] 2.16.840.1.255537.3.579.2.4 62 Unknown [id number] 2.16.840.1.790382.3.579.2.4 62 Unknown [id number] 2.16.840.1.351263.3.579.2.4 62 Unknown [id number] 2.16.840.1.845090.3.579.2.4 62 Unknown [id number] 2.16.840.1.910756.3.579.2.4 62 Unknown [id number] 2.16.840.1.502872.3.579.2.4 62 Unknown [id number] 2.16.840.1.530969.3.579.2.4 62 Unknown [id number] 2.16.840.1.353054.3.579.2.4 62 Unknown [id number] 2.16.840.1.331772.3.579.2.4 62 Unknown [id number] 2.16.840.1.742166.3.579.2.4 62 Unknown [id number] 2.16.840.1.419664.3.579.2.4 62 Unknown [id number] 2.16.840.1.217988.3.579.2.4 62 Unknown [id number] 2.16.840.1.430297.3.579.2.4 62 Unknown [id number] 2.16.840.1.253961.3.579.2.4 62 Unknown [id number] 2.16.840.1.868818.3.579.2.4 62 Unknown [id number] 2.16.840.1.970422.3.579.2.4 62 Unknown [id number] 2.16.840.1.284605.3.579.2.4 62 Unknown [id number] 2.16.840.1.619502.3.579.2.4 62 Unknown [id number] 2.16.840.1.568925.3.579.2.4 62 Unknown [id number] 2.16.840.1.942352.3.579.2.4 62 Unknown [id number] 2.16.840.1.840989.3.579.2.4 62 Unknown [id number] 2.16.840.1.199870.3.579.2.4 62 Unknown [id number] 2.16.840.1.714313.3.579.2.4 62 Unknown [id number] 2.16.840.1.971319.3.579.2.4 62 Unknown [id number] 2.16.840.1.027152.3.579.2.4 62 Unknown [id number] 2.16.840.1.648115.3.579.2.4 62 Unknown [id number] 2.16.840.1.799395.3.579.2.4 62 Unknown [id number] 2.16.840.1.955419.3.579.2.4 62 Unknown [id number] 2.16.840.1.173109.3.579.2.4 62 Unknown [id number] 2.16.840.1.181046.3.579.2.4 62 Unknown [id number] 2.16.840.1.184993.3.579.2.4 62 Unknown [id number] 2.16.840.1.508923.3.579.2.4 62 Unknown [id number] 2.16.840.1.837103.3.579.2.4 62 Unknown [id number] 2.16.840.1.481931.3.579.2.4 62 Unknown [id number] 2.16.840.1.261212.3.579.2.4 62 Unknown [id number] 2.16.840.1.898843.3.579.2.4 62 Unknown [id number] 2.16.840.1.983255.3.579.2.4 62 Unknown [id number] 2.16.840.1.728658.3.579.2.4 62 Unknown [id number] 2.16.840.1.334649.3.579.2.4 62 Unknown [id number] 2.16.840.1.097388.3.579.2.4 62 Unknown [id number] 2.16.840.1.274349.3.579.2.4 62 Unknown [id number] 2.16.840.1.025460.3.579.2.4 62 Unknown [id number] 2.16.840.1.166900.3.579.2.4 62 Unknown [id number] 2.16.840.1.595600.3.579.2.4 62 Unknown [id number] 2.16.840.1.127551.3.579.2.4 62 Unknown [id number] 2.16.840.1.192491.3.579.2.4 62 Unknown [id number] 2.16.840.1.990079.3.579.2.4 62 Unknown [id number] 2.16.840.1.525198.3.579.2.4 62 Unknown [id number] 2.16.840.1.602146.3.579.2.4 62 Unknown [id number] 2.16.840.1.364552.3.579.2.4 62 Unknown [id number] 2.16.840.1.040153.3.579.2.4 62 Unknown [id number] 2.16.840.1.577949.3.579.2.4 62 Unknown [id number] 2.16.840.1.058656.3.579.2.4 62 Unknown [id number] 2.16.840.1.027922.3.579.2.4 62 Social History Date Type Detail Facility Start: 05-21-2017 End: 12-14-2019 Tobacco smoking status GAIS Former smoker [facility] Work Phone: Start: 05-21-1990 End: 05-22-2015 History of tobacco use Current smoker [facility] Start: 05-21-2017 End: 12-14-2019 Tobacco use and exposure Never used [facility] Start: 1965 Sex Assigned At Not on file A [facility] Exposure to SARS-CoV -2 (event) Not sure [facility] Start: 08-17-2021 End: 07-12-2023 Tobacco smoking status NHIS Unknown if ever smoked [facility] Start: 08-04-2020 Occasional [facility] Start: 08-04-2020 None [facility] Start: 10-24-2019 [facility] Start: 08-04-2020 Cigarettes [facility] Start: 1965 Sex Assigned At Female W [facility] Start: 05-21-2024 End: 07-22-2024 Tobacco smoking status NHIS Current some day smoker [facility] Start: 05-22-2024 End: 07-03-2024 Sex Female (finding) [facility] Start: 05-21-1990 End: 05-22-2015 History of tobacco use Cigarette Smoker [facility] Start: 05-21-2017 End: 08-05-2024 Cigarettes smoked current (pack per day) - Reported 0.5 [facility] Start: 07-03-2024 End: 08-05-2024 Alcoholic beverage intake Current non-drinker of alcohol (finding) [facility] Start: 07-03-2024 End: 08-05-2024 [facility] Utilities [facility] Has the [employer], [employer], or water [employer] threatened to shut off services in your home in past 12Mo No [facility] PHQ2 Score 0 [place] (I/We) worried wheth er (my/our) food would run out before (I/we) got money to buy more. Never true [facility] Start: 05-21-2017 Tobacco Comment quit 2 years ago [facility] Medical Equipment Procedure Code Equipment Code Equipment Origin al Text Equipment Identifier Dates ([id number]) [id number] FDA Start: 08-17-2021 ([id number]) [id number] FDA Start: 12-02-2023 Pacemaker- 02 4 [id number] Start: 12-02-2023 Comment on above: Description: BSC L11 1 RA 4469 RV 4470 Stimulator- 23 [id number] Start: 01-17-2023 Comment on above: Description: MDT 977 15 2 Leads 977A2 Pt is full body eligible 1.5T Normal mode 30 min active scanning in 90 min window Pacemaker-[id number]_[facility] Start: 04-03-2013 [id number]_[facility] Start : 05-10-2003 [id number]_[facility] Start : 05-10-2003 [id number]_[facility] Start : 12-02-2023 Goals Date Patient Goal Desired Activity /State Functional Status Date Assessment Result Facility 07-04-2024 Are you deaf, or do you have serious difficulty hearing No 07/04/2024 1:25 PM EDJuan Luis Enciso RN No [facility] 07-04-2024 Are you blind, or do you have serious difficulty seeing, even when wearing glasses No 07/04/2024 1:25 PM Juan Luis Tineo RN No [facility] 07-04-2024 Do you have serious difficulty walking or climbing stairs No 07/04/2024 1:25 PM EDJuan Luis Enciso RN No [facility] 07-04-2024 Do you have difficul ty dressing or bathing No 07/04/2024 1:25 PM EDJuan Luis Enciso, AKIKO No [facility] 07-04-2024 Because of a physica l, mental, or emotional condition, do you have difficulty doing errands alone such as visiting a physician's office or shopping No 07/04/2024 1:25 PM Juan Luis Tineo RN No [facility] 04-05-2024 Functional status Bathroom Privi lege;Back to bed [facility] Work Phone: 10-25-2021 Functional status Chair [facility] Work Phone: 10-24-2021 Functional status None [facility] Work Phone: Mental Status Date Assessment Result Facility 07-04-2024 Because of a physica l, mental, or emotional condition, do you have serious difficulty concentrating, remembering, or making decisions No 07/04/2024 1:25 PM EDJuan Luis Enciso RN No [facility] 06-29-2024 Cognitive function Voice/Name [facility] Work Phone: 04-05-2024 Cognitive function Appropriate;Cooperativ e [facility] Work Phone: 07-12-2023 Cognitive function Level Of Cons ciousness Awake;Alert;Appropriate [facility] Work Phone: 12-03-2022 Cognitive function Voice/Name [facility] Work Phone: 11-24-2022 Cognitive function Level Of Cons ciousness Awake;Alert;Appropriate;Fol lows Commands [facility] Work Phone: 10-25-2021 Cognitive function Voice/Name [facility] Work Phone: Clinical Notes 10-10-2020 to 08-10-2024 Telephone Encounter - Katrin Peng - 08/10/2024 8:00 AM EDTTelephone Encounter - Katrin Peng - 08/10/2024 8:00 AM EDTCButch monteiro MD - 08/05/2024 10:56 PM EDT Note Date & Type Note Facility 08-10-2024 Telephone encounter Note I faxed order to [facility], however patient was released from them in 2014. No reason given. Please advise [facility] 08-10-2024 Miscellaneous Notes I faxed order to [facility], however patient was released from them in 2014. No reason given. Please advise documented in this encounter [facility] 08-05-2024 Note HNO ID: [id number] Author: BUTCH MAYS MD Service: ? Author Type: Physician Type: Progress Notes Filed: 08/05/2024 23:04 Note Text: Butch Mays MD Orthopaedic Spine Surgery [address] [place] [address], [address], [place] [address] FAX: [phone] Spine Surgery Outpatient Note Service Date: 08/05/2024 Chief Complaint: Follow-up visit for bilateral lower extremity weakness History of Present Illness Ramses Bradshaw is a 58 year old female with who was last seen as an in hospital consultation on 07/03/24 for chief complaint of thoracic back pain and bilateral lower extremity weakness. At our prior visit I recommended MRI. Ramses Bradshaw presents today for review of imaging and plan of care discussion. Summary of Symptoms Pain Location: Thoracic spine Radiation of Pain: Weakness: Bilateral lower extremities Dexterity Issues: No Imbalance: No Falls: No Bowel/Bladder Dysfunction: No Change in Symptoms: No Prior Conservative Treatment Physical Therapy: Yes Medications: Flexeril, Gabapentin, Percocet Pain Management: No Injections: No Surgery: L4-5 PSDF Other: No The following portions of the patient's history were reviewed and updated as appropriate: allergies, current medications, past family history, past medical history, past social history, past surgical history and problem list. ACTIVE PROBLEM LIST Carbuncle and Furuncle of Unspecified Site Sinoatrial Node Dysfunction (Hcc) Cardiac Pacemaker in Situ Spinal Stenosis, Lumbar Region, With Neurogenic Claudication Degeneration of Lumbar Or Lumbosacral Intervertebral Disc Gastric Mass Back Pain Due to Injury Leg Weakness, Bilateral Hypothyroidism Class 3 Severe Obesity in Adult Essential Hypertension Copd (Chronic Obstructive Pulmonary Disease) ([facility]) Controlled Type 2 Diabetes Mellitus Without Complication, Without Long-Term Current Use of Insulin ([facility]) History of Pulmonary Embolus (Pe) Atrial Fibrillation ([facility]) Hyperlipidemia Tobacco Use Disorder Eloy (Obstructive Sleep Apnea) Heart Failure With Preserved Ejection Fraction ([facility]) Armani (Acute Kidney Injury) Obesity, Class III, BMI >= 40 PAST MEDICAL HISTORY Diagnosis Date Anxiety Atrial fibrillation ([facility]) 07/03/2024 CAD (coronary artery disease) 07/03/2024 Congestive heart failure ([facility]) 07/03/2024 Controlled type 2 diabetes mellitus without complication, without long-term current use of insulin ([facility]) 07/03/2024 COPD (chronic obstructive pulmonary disease) ([facility]) 07/03/2024 Depression Gastric mass Hypertension Hypothyroid ELOY (obstructive sleep apnea) 07/03/[address] bangura . pacemaker [facility] Sick sinus syndrome ([facility]) Sleep apnea uses cpap at night PAST SURGICAL HISTORY Procedure Laterality Date ANESTHESIA LUMBAR REGION NOS 02/07/2016 L4-L5 fusion; [facility] [place] APPENDECTOMY CARPAL TUNNEL left HYSTERECTOMY HX LAPAROSCOPY DIAGNOSTIC NEUROPLASTY AND/TRANSPOSITION ULNAR NERVE ELBOW bilateral- with revisions PACEMAKER (PM) 2003 PAST SURGICAL HISTORY OF lumbar pain injections. FAMILY HISTORY Problem Relation Age of Onset Multiple Sclerosis Father 26 at age 41 Multiple Sclerosis Daughter 30 dx Mar 2016 other (orthostatic hypotension) Sister Social History Tobacco Use Smoking status: Former Current packs/day: 0.00 Average packs/day: 0.5 packs/day for 25.0 years (12.5 ttl pk-yrs) Types: Cigarettes Start date: 05/21/1990 Quit date: 05/22/2015 Years since quittin.2 Smokeless tobacco: Never Tobacco comments: quit 2 years ago Substance Use Topics Alcohol use: No Drug use: No Comment: Heavy EtOH use unt2000. ALLERGIES Allergen Reactions Asa [Salicylates] GI Upset Erythromycin Vomiting Vomiting AND diarrhea Ibuprofen GI Upset Latex Other: See Comments Pt reports reaction to Latex, adhesives, EKG stickers w/ skin irritation at times...causes redness AND blisters Nsaids (Non-Steroid* Diarrhea, Vomiting Medications: isosorbide mononitrate ER (IMDUR) 60 mg 24 hr tablet Take 60 mg by mouth once daily. omeprazole (PRILOSEC) 40 mg capsule Take 40 mg by mouth once daily. Fenofibrate (LOFIBRA) 54 mg tablet Take 54 mg by mouth once daily. SUMAtriptan (IMITREX) 50 mg tablet Take 50 mg by mouth as needed for migraine headache (see administration instructions). May repeat dose after 2 hours if needed. Maximum daily dose is 200 mg per day. rosuvastatin (CRESTOR) 20 mg tablet Take 20 mg by mouth daily at bedtime. traZODone (DESYREL) 150 mg tablet Take 150 mg by mouth daily at bedtime. traZODone (DESYREL) 50 mg tablet Take 50 mg by mouth daily at bedtime. cyclobenzaprine (FLEXERIL) 10 mg tablet Take 10 mg by mouth two times a day as needed for muscle spasm. busPIRone (BUSPAR) 5 mg tablet Take 5 mg by mouth two times a day. busPIRone (BUSPAR) 15 mg tablet Take 15 mg by mouth two (more content not included)... [facility] 08-05-2024 History of Presen t illness Narrative Images from the original note were not included. Butch Mays MD Orthopaedic Spine Surgery [facility], [address], [place] [address] FAX: [phone] Spine Surgery Outpatient Note Service Date: 08/05/2024 Chief Complaint: Follow-up visit for bilateral lower extremity weakness History of Present Illness Ramses Bradshaw is a 58 year old female with who was last seen as an in hospital consultation on 07/03/24 for chief complaint of thoracic back pain and bilateral lower extremity weakness. At our prior visit I recommended MRI. Ramses Bradshaw presents today for review of imaging and plan of care discussion. Summary of Symptoms Pain Location: Thoracic spine Radiation of Pain: Weakness: Bilateral lower extremities Dexterity Issues: No Imbalance: No Falls: No Bowel/Bladder Dysfunction: No Change in Symptoms: No Prior Conservative Treatment Physical Therapy: Yes Medications: Flexeril, Gabapentin, Percocet Pain Management: No Injections: No Surgery: L4-5 PSDF Other: No The following portions of the patient's history were reviewed and updated as appropriate: allergies, current medications, past family history, past medical history, past social history, past surgical history and problem list. ACTIVE PROBLEM LIST Carbuncle and Furuncle of Unspecified Site Sinoatrial Node Dysfunction (Hcc) Cardiac Pacemaker in Situ Spinal Stenosis, Lumbar Region, With Neurogenic Claudication Degeneration of Lumbar Or Lumbosacral Intervertebral Disc Gastric Mass Back Pain Due to Injury Leg Weakness, Bilateral Hypothyroidism Class 3 Severe Obesity in Adult Essential Hypertension Copd (Chronic Obstructive Pulmonary Disease) ([facility]) Controlled Type 2 Diabetes Mellitus Without Complication, Without Long-Term Current Use of Insulin ([facility]) History of Pulmonary Embolus (Pe) Atrial Fibrillation ([facility]) Hyperlipidemia Tobacco Use Disorder Eloy (Obstructive Sleep Apnea) Heart Failure With Preserved Ejection Fraction ([facility]) Armani (Acute Kidney Injury) Obesity, Class III, BMI >= 40 PAST MEDICAL HISTORY Diagnosis Date Anxiety Atrial fibrillation ([facility]) 07/03/2024 CAD (coronary artery disease) 07/03/2024 Congestive heart failure ([facility]) 07/03/2024 Controlled type 2 diabetes mellitus without complication, without long-term current use of insulin ([facility]) 07/03/2024 COPD (chronic obstructive pulmonary disease) ([facility]) 07/03/2024 Depression Gastric mass Hypertension Hypothyroid ELOY (obstructive sleep apnea) 07/03/[address] bangura . pac[facility] checked at [facility] Sick sinus syndrome ([facility]) Sleep apnea uses cpap at night PAST SURGICAL HISTORY Procedure Laterality Date ANESTHESIA LUMBAR REGION NOS 02/07/2016 L4-L5 fusion; [facility] APPENDECTOMY CARPAL TUNNEL left HYSTERECTOMY HX LAPAROSCOPY DIAGNOSTIC NEUROPLASTY &/TRANSPOSITION ULNAR NERVE ELBOW bilateral- with revisions PACEMAKER (PM) 2003 PAST SURGICAL HISTORY OF lumbar pain injections. FAMILY HISTORY Problem Relation Age of Onset Multiple Sclerosis Father 26 at age 41 Multiple Sclerosis Daughter 30 dx Mar 2016 other (orthostatic hypotension) Sister Social History Tobacco Use Smoking status: Former Current packs/day: 0.00 Average packs/day: 0.5 packs/day for 25.0 years (12.5 ttl pk-yrs) Types: Cigarettes Start date: 05/21/1990 Quit date: 05/22/2015 Years since quittin.2 Smokeless tobacco: Never Tobacco comments: quit 2 years ago Substance Use Topics Alcohol use: No Drug use: No Comment: Heavy EtOH use unt2000. ALLERGIES Allergen Reactions Asa [Salicylates] GI Upset Erythromycin Vomiting Vomiting & diarrhea Ibuprofen GI Upset Latex Other: See Comments Pt reports reaction to Latex, adhesives, EKG stickers w/ skin irritation at times...causes redness & blisters Nsaids (Non-Steroid* Diarrhea, Vomiting Medications: isosorbide mononitrate ER (IMDUR) 60 mg 24 hr tablet Take 60 mg by mouth once daily. omeprazole (PRILOSEC) 40 mg capsule Take 40 mg by mouth once daily. Fenofibrate (LOFIBRA) 54 mg tablet Take 54 mg by mouth once daily. SUMAtriptan (IMITREX) 50 mg tablet Take 50 mg by mouth as needed for migraine headache (see administration instructions). May repeat dose after 2 hours if needed. Maximum daily dose is 200 mg per day. rosuvastatin (CRESTOR) 20 mg tablet Take 20 mg by mouth daily at bedtime. traZODone (DESYREL) 150 mg tablet Take 150 mg by mouth daily at bedtime. traZODone (DESYREL) 50 mg tablet Take 50 mg by mouth daily at bedtime. cyclobenzaprine (FLEXERIL) 10 mg tablet Take 10 mg by mouth two times a day as needed for muscle spasm. busPIRone (BUSPAR) 5 mg tablet Take 5 mg by mouth two times a day. busPIRone (BUSPAR) 15 mg tablet Take 15 mg by mouth two times a day. glimepiride (AMARYL) 2 mg tablet Take 2 mg by mouth two times a day with meals. apixaban (ELIQUIS) 5 mg tab(s) Take 5 mg by mouth two times a day. clonazePAM (KLONOPIN) 0.5 mg tablet Take 0.5 mg by mouth four times daily. lisinopril (ZESTRIL, PRINIVIL) 20 mg tablet TAKE 1 TABLET BY MOUTH TWICE A DAY (Patient taking differently: Take 20 mg by mouth once daily.) gabapentin (NEURONTIN) 300 mg capsule Take 300 mg by mouth four times daily. amLODIPine (NORVASC) 5 mg tablet Take 5 mg by mouth two times a day. metoprolol tartrate, short acting, (LOPRESSOR) 25 mg tablet Take 100 mg by mouth two times a day. pantoprazole DR (PROTONIX) 40 mg tablet Take 40 mg by mouth twice daily. nitroglycerin sublingual [...] by mouth every 6 hours as needed. denosumab (PROLIA) 60 mg/mL Inject 60 mg subcutaneously once every 6 months. (Patient not taking: Reported on 08/05/2024) Physical Examination: Vital Signs: Ht 157.5 cm (5' 2) Wt 101.6 kg (224 lb) BMI 40.97 kg/m General Appearance: Well nourished, well developed, and no apparent distress. Neuro/Psych: Patient oriented to person, place, and time. Mood pleasant. Benign affect. Cardiovascular: Palpable pulses. No edema noted. No varicosities. Skin: Head, neck, trunk, and extremities dry, intact and without lesions. Lymphatics: No palpable nodes in cervical or axillae areas. Groin exam deferred. Musculoskeletal: No tenderness to palpation in the midline over the spinous processes or in the paraspinal musculature. Muscle Tone and Bulk: Symmetrical in the upper & lower extremities. Sensory: Sensation intact to light touch in C5-T1 and L1-S1 dermatomes. Motor: Upper Extremities Right Left Deltoid (C5) 5 5 Biceps (C6) 5 5 Triceps (C7) 5 5 Stroke Belt Sander Operator (C8) 5 5 Interossei (T1) 5 5 Lower Extremities Right Left Psoas (L2) 5 5 Quadriceps (L3) 4 4 Dorsiflexion (L4) 4 4 EHL (L5) 4 4 Plantarflexion (S1) 4 4 Gait: Unable to perform tandem gait. Long Tract Signs: No clonus. No Hoffmanns. Reflexes: Symmetric, non-brisk. Imaging Last MRI Cervical Spine - Impression Only MRI CERVICAL SPINE WO IVCON Exam End: 08/04/2024 4:14 PM (Final result) Impression: IMPRESSION: 1. Evaluation limited by motion within the limitation, following observations are made. 2. Multilevel cervical spondylosis, most pronounced at C6-C7 with a small disc osteophyte complex and superimposed central disc protrusion, abutment of ventral cord with mild deformation of ventral cord. 3. Mild degenerative changes at other levels. No high-grade canal or neural foraminal stenosis. ... Last MRI Thoracic Spine - Impression Only MRI THORACIC SPINE WO IVCON Exam End: 08/04/2024 4:14 PM (Final result) Impression: IMPRESSION: 1. Artifact from the spinal cord stimulator lead limits evaluation of the dorsal canal and cord from T8 to T12. Within the limitation, no acute abnormality in the thoracic spine. 2. Small disc bulge at T7-T8. No significant canal or foraminal stenosis. Anatomic Thoracic/Lumbar Variant: None. L4-5 is considered the level of ... MRI of the cervical and thoracic spine independently reviewed. Imaging demonstrates no significant stenosis in the cervical or thoracic spine. Assessment 58 year old female who presents with thoracic back pain and bilateral lower extremity weakness in the abscess of significant compressive pathology. Encounter Diagnosis ICD-10-CM 1. Weakness of both lower extremities R29.898 CONSULT TO NEUROLOGY 2. Obesity, Class III, BMI 40-49.9 (morbid obesity) E66.813 Plan The clinical and radiographic findings as well as the risks, benefits, and alternatives of treatment have been reviewed in detail with the patient. We had a discussion of symptoms, examination, and imaging findings. A summary of my recommendations is as follows: Referral to neurology provided. Continue to use chair/walker for mobility to prevent falls. Follow-up as needed. Advised to call the office if symptoms worsen or new symptoms develop. Patient expressed understanding and is in agreement with plan. Butch Mays MD Orthopaedic Spine Surgery This note was generated all or in part using [employer] voice recognition software and [employer] Dictation software. Please excuse any minor errors in spelling, grammar, or punctuation. 58 y/o female presents to office to discuss MRI results of the cervical and thoracic spine. documented in this encounter [facility] 08-05-2024 Note HNO ID: [id number] Author: VANIA LADD MA Service: ? Author Type: Philosophy Instructor Type: Progress Notes Filed: 08/05/2024 23:04 Note Text: 58 y/o female presents to office to discuss MRI results of the cervical and thoracic spine. [facility] 08-04-2024 Note IMPRESSION: 1. Artifact from the spinal cord stimulator lead limits evaluation of the dorsal canal and cord from T8 to T12. Within the limitation, no acute abnormality in the thoracic spine. 2. Small disc bulge at T7-T8. No significant canal or foraminal stenosis. Anatomic Thoracic/Lumbar Variant: None. L4-5 is considered the level of the iliac crest and assume there are 5 lumbar-type vertebrae. Communications Operator: PSCB Transcribe Date/Time: Aug 04 2024 4:51P Dictated by : JUSTIN MOSHER MD This examination was interpreted and the report reviewed and electronically signed by: JUSTIN MOSHER MD on Aug 04 2024 4:56PM [facility] 08-04-2024 Note IMPRESSION: 1. Evaluation limited by motion within the limitation, following observations are made. 2. Multilevel cervical spondylosis, most pronounced at C6-C7 with a small disc osteophyte complex and superimposed central disc protrusion, abutment of ventral cord with mild deformation of ventral cord. 3. Mild degenerative changes at other levels. No high-grade canal or neural foraminal stenosis. Anatomic Variant: None. Assume 7 cervical vertebrae with counting from the craniocervical junction. Communications Operator: CHERIE Transcribe Date/Time: Aug 04 2024 4:34P Dictated by : JUSTIN MOSHER MD This examination was interpreted and the report reviewed and electronically signed by: JUSTIN MOSHER MD on Aug 04 2024 4:39PM [facility] 08-04-2024 History of Presen t illness Narrative Radiology Service Progress Note PATIENT NAME: Ramses Bradshaw DATE OF SERVICE: August 04, 2024 TIME: 2:24 PM PATIENT IDENTITY VERIFICATION COMPLETED USING TWO (2) IDENTIFIERS: Name and Date of confirmed by patient verbally and Name and Date of confirmed by identification band. FALL SCREENING: Has the patient had 2 falls in the last year or 1 fall with injury or currently using an Ambulatory Assistive Device (Walker, Cane, Wheelchair, Crutches, etc.)? Yes, Patient High Risk for Falls What interventions were put in place to prevent falls during this visit? Instructed Patient to Call for Help if Needed, Offered Assistance with Transfers/Clothing, Instructed Patient to Remain Seated (Not on Exam Table) Until Exam, and Increased Observations by Caregivers PATIENT GENDER DATA: Assigned female at . status: : No status: NO. PATIENT RELEVANT IMPLANT DATA REVIEWED: Yes PATIENT PRESENTS WITH AN IMPLANTABLE OR ATTACHED SMASH HAND: Yes Other [employer] Pacemaker Medtronic IPG RADIOLOGY DEPARTMENT: MR; Exam(s) Completed: Spine: Cervical spine and Thoracic spine. Lavender Administered: No PERIPHERAL IV DATA: Not applicable SIGNED BY: YUSRA Abdi August 04, 2024 2:24 PM documented in this encounter [facility] 08-04-2024 Note HNO ID: [id number] Author: FANNY DONOVAN RN Service: ? Author Type: Registered Nurse Type: Procedures Filed: 08/04/2024 14:58 Note Text: Radiology Service Progress Note PATIENT NAME: Ramses Bradshaw DATE OF SERVICE: August 04, 2024 TIME: 2:55 PM PATIENT IDENTITY VERIFICATION COMPLETED USING TWO (2) STANDARD IDENTIFIERS: Name and Date of confirmed by patient verbally. ALLERGIES: Reviewed and unchanged MEDICATIONS REVIEWED: YES PROCEDURE: MRI - Conditional Pacemaker [employer], AV pacing at 75 Physiologic monitoring per standard operating procedure. See vital sign flowsheet. PATIENT TOLERATED PROCEDURE: Without incident. PATIENT DISCHARGED TO: Home/Self Care SIGNED BY: Fanny Donovan RN [facility] 08-04-2024 Note HNO ID: [id number] Author: ULKAS CRUZ MRI Tech Service: ? Author Type: Technologist Type: Progress Notes Filed: 08/04/2024 14:33 Note Text: Radiology Service Progress Note PATIENT NAME: Ramses Bradshaw DATE OF SERVICE: August 04, 2024 TIME: 2:24 PM PATIENT IDENTITY VERIFICATION COMPLETED USING TWO (2) IDENTIFIERS: Name and Date of confirmed by patient verbally and Name and Date of confirmed by identification band. FALL SCREENING: Has the patient had 2 falls in the last year or 1 fall with injury or currently using an Ambulatory Assistive Device (Walker, Cane, Wheelchair, Crutches, etc.)? Yes, Patient High Risk for Falls What interventions were put in place to prevent falls during this visit? Instructed Patient to Call for Help if Needed, Offered Assistance with Transfers/Clothing, Instructed Patient to Remain Seated (Not on Exam Table) Until Exam, and Increased Observations by Caregivers PATIENT GENDER DATA: Assigned female at . status: : No status: NO. PATIENT RELEVANT IMPLANT DATA REVIEWED: Yes PATIENT PRESENTS WITH AN IMPLANTABLE OR ATTACHED SMASH HAND: Yes Other [employer] Pacemaker Medtronic IPG RADIOLOGY DEPARTMENT: MR; Exam(s) Completed: Spine: Cervical spine and Thoracic spine. Lavender Administered: No PERIPHERAL IV DATA: Not applicable SIGNED BY: YUSRA Abdi August 04, 2024 2:24 PM [facility] 08-04-2024 Procedure note Radiology Service Progress Note PATIENT NAME: Ramses Bradshaw DATE OF SERVICE: August 04, 2024 TIME: 2:55 PM PATIENT IDENTITY VERIFICATION COMPLETED USING TWO (2) STANDARD IDENTIFIERS: Name and Date of confirmed by patient verbally. ALLERGIES: Reviewed and unchanged MEDICATIONS REVIEWED: YES PROCEDURE: MRI - Conditional Pacemaker [employer], AV pacing at 75 Physiologic monitoring per standard operating procedure. See vital sign flowsheet. PATIENT TOLERATED PROCEDURE: Without incident. PATIENT DISCHARGED TO: Home/Self Care SIGNED BY: Fanny Donovan RN [facility] 08-04-2024 Procedure note Radiology Service Progress Note PATIENT NAME: Ramses Bradshaw DATE OF SERVICE: August 04, 2024 TIME: 2:55 PM PATIENT IDENTITY VERIFICATION COMPLETED USING TWO (2) STANDARD IDENTIFIERS: Name and Date of confirmed by patient verbally. ALLERGIES: Reviewed and unchanged MEDICATIONS REVIEWED: YES PROCEDURE: MRI - Conditional Pacemaker [employer], AV pacing at 75 Physiologic monitoring per standard operating procedure. See vital sign flowsheet. PATIENT TOLERATED PROCEDURE: Without incident. PATIENT DISCHARGED TO: Home/Self Care SIGNED BY: Fanny Donovan RN documented in this encounter [facility] 07-23-2024 Discharge summary Note Date/Time July 23, 2024 12:06am [facility] Medical Records Department [address] [place] [id number] Emergency Department Summary 07/22/24 MR#: [id number] Acct: [id number] Name: RAMSES BRADSHAW Rep #:[id number] : 1965 58 From: Chaim Marina PCP: Dr. Charla Wadsworth MD Status:R EG ER Location: ED HPI HPI - Female History of Present Illness Chief Complaint: Complaint PFSH PFS Medical History (Updated 07/23/24 @ 00:[address] Chaim Maurer DO) Hypersomnolence Ambulatory dysfunction Pulmonary embolism Atrial fibrillation Diabetes Type 2 diabetes mellitus Blood glucose elevated Dark urine Anxiety Asthma Pacemaker Hypertension UTI (urinary tract infection) Pacemaker battery depletion History of tobacco use Hyperkalemia Knee sprain Post-menopausal Cancer Arthritis Walker as ambulation aid Uses wheelchair High cholesterol Back pain Injury of back Migraine headache Dietary restriction History of IBS Smoker CPAP (continuous positive airway pressure) dependence COPD (chronic obstructive pulmonary disease) Emphysema, unspecified Leg cramps History of pain when walking History of edema History of echocardiogram History of stress test Cardiology follow-up encounter History of CHF (congestive heart failure) Chest pain Osteopenia (~10/2022) Lumbar radiculopathy Debility Leukocytosis Health care maintenance Pain of left thumb Polypharmacy Encephalopathy CHI (closed head injury) Bacteria in urine Health care maintenance Muscle spasm Tobacco use disorder, continuous Encounter for screening for malignant neoplasm of lung in current smoker with 30pack year history or greater Osteoarthritis Greater trochanteric bursitis of left hip Infected dental carries Atherosclerotic heart disease of [place] coronary artery without angina pectoris Monomorphic ventricular tachycardia Hyperlipidemia Intermittent palpitations Diarrhea ELOY (obstructive sleep apnea) COPD (chronic obstructive pulmonary disease) Polycythemia Primary malignant neuroendocrine tumor of stomach Sacral contusion Low back strain Anxiety and depression Hypothyroidism GERD (gastroesophageal reflux disease) PTSD (post-traumatic stress disorder) Vitamin D deficiency Neuropathy Anemia Essential (primary) hypertension Neuroendocrine neoplasm of stomach Sick sinus syndrome Sinus pause Chronic lower back pain Chronic pain syndrome Tobacco dependence syndrome Familial combined hyperlipidemia Obesity Home Medications ?Medication ?Instructions ?Recorded ?Last Taken ?Type duloxetine 60 mg capsule,delayed 120 mg PO DAILY 05/1604/03/24 History release gabapentin 300 mg capsule 300 mg PO TID 05/16/2204/03 History isosorbide mononitrate 60 mg 60 mg PO QAM #90 tabs 07/3104/03/24 Rx tablet,extended release 24 hr walker (Ultra-Light Rollator misc) #1 ea 10/17/22 Unkn own Rx potassium chloride 20 mEq 20 meq PO DAILY 01/30/23 History tablet,extended release(part/cryst) denosumab 60 mg/mL subcutaneous 60 mg subcut [id number] #1 mL 02/15/23 09/09/23 Rx syringe (Prolia) lisinopril 20 mg tablet 20 mg PO DAILY #90 tabs 02/0804/03/24 Rx metoprolol tartrate 100 mg tablet 100 mg PO BID blood pressure, 04/26/23 04/03/24 Rx heart #180 tabs levothyroxine 25 mcg tablet 25 mcg PO DAILY 07/25/23 0 04/03/24 History magnesium oxide 400 mg (241.3 mg 400 mg PO DAILY 07/2404/03/24 History magnesium) tablet omeprazole 40 mg capsule,delayed 40 mg PO DAILY 04/03/24 History release fenofibrate 54 mg tablet 54 mg PO DAILY #90 tabs 07/1004/03/24 Rx sumatriptan succinate 50 mg tablet See Rx Instructions PO .COMPLEX 08/09/23 Unknown Rx (Imitrex) #10 tabs ondansetron 8 mg disintegrating 8 mg PO Q6H PRN PRN na usea and 09/09/23 04/03/24 History tablet vomiting rosuvastatin 20 mg tablet 20 mg PO QHS 09/09/23 History trazodone 150 mg tablet 150 mg PO QHS 09/09/2304/02 History trazodone 50 mg tablet 50 mg PO QHS 09/09/23 History cyclobenzaprine 10 mg tablet 10 mg PO BID PRN muscle s pasm #180 10/29/23 04/03/24 Rx tabs amlodipine 5 mg tablet 5 mg PO BID #60 tabs 4 04/03/24 Rx buspirone 15 mg tablet 15 mg PO BID 04/03/24 History buspirone 5 mg tablet 5 mg PO BID 04/03/24 Unknown History glimepiride 2 mg tablet 2 mg PO BID #60 tabs 5 Unknown Rx blood sugar diagnostic (FreeStyle #100 ea 04/21/24 Unk nown Rx Lite Strips) blood-glucose meter (FreeStyle #1 ea 04/21/24 Unknown Rx Lite Meter kit) lancets 28 gauge (FreeStyle #200 ea 04/21/24 Unknown R x Lancets) oxycodone-acetaminophen 5 mg-325 1 tab PO Q8H PRN pain 3 days #10 05/04/24 Unknown Rx mg tablet (Percocet) tabs apixaban 5 mg tablet (Eliquis) 5 mg PO BID #180 tabs 0 05/05/24 Unknown Rx bed rail #1 ea 05/06/24 Unknown Rx clonazepam 0.5 mg tablet 0.5 mg PO 4X/DAY 05/12/24 Un known History guaifenesin 100 mg/5 mL oral 400 mg PO Q4H 05/12/24 Un known History liquid (Adult Tussin Chest Congestion) naloxone 4 mg/actuation nasal spray 4 mg intranasal Q3 M PRN opioid 05/12/24 Unknown History overdose Wheelchair with leg rest / lifts #1 ea 06/26/24 Unknow n Rx calcitonin (salmon) 200 1 spray intranasal (ALT) NARA LY 06/29/24 Unknown Rx unit/actuation nasal spray #3.7 mL ondansetron 4 mg disintegrating 4 mg PO Q8H PRN PRN Na usea #10 tabs 07/23/24 Unknown Rx tablet Allergy/AdvReac Type Severity Reaction Status Date / Time latex Allergy Intermediate skin Verified 07/22/24 20:17 irritation aspirin AdvReac Severe Nausea/Vom/ Verified 07/22/24 20:17 Diarrhea erythromycin base AdvReac Severe Vomiting,di Verified 07/22/24 20:17 (Erythromycin Base) arrhea NSAIDS (Non-Steroidal AdvReac Severe Vomiting,di Verified 07/22/24 20:17 Anti-Inflamma arrhea Family History Daughter Multiple sclerosis Father CAD (coronary artery disease) Heart disease Multiple sclerosis Grandfather Heart disease Uncle Heart disease Aunt No problems noted. Sister Colon cancer Mother Hypertension Surgical History Squamous cell carcinoma History of lumbar fusion History of esophagogastroduodenoscopy (EGD) Status post insertion of spinal cord stimulator History of left heart catheterization (08/17/21) History of colonoscopy Presence of permanent cardiac pacemaker (2013) History of resection of stomach Hx of cholecystectomy History of elbow surgery History of hysterectomy History of appendectomy History of laparotomy history excision neuroendocrine tumor Social History household members: none housing: assisted living facility current occupational status: unemployed Smoking Status: Current some day smoker tobacco type: cigarettes Tobacco: How many years used: 30 how long ago did patient quit smoking: A few months ago second hand exposure: Yes alcohol intake: never substance use type: does not use caffeine: Yes Type: carbonated beverages Number of servings: 1 and coffee Number of servings: 2 what type of physical activity do you participate in: none ivania/judaism: None seatbelt use: always do you feel safe at home: Yes EXAM Physical Exam Const Vital Signs: 07/22/24 20:15 07/22/24 22:14 Temperature 99.3 F H Temperature Source Oral Pulse Rate 72 101 H Respiratory Rate 18 17 Blood Pressure 113/54 L 159/86 H Blood Pressure Mean 73 110 Pulse Ox 97 97 Oxygen Delivery Method Room Air Room Air MDM MDM MDM Narrative Medical decision making narrative: HISTORY OF PRESENT ILLNESS: Chief complaint: Urinary retention 58 year-old female history of COPD, type 2 diabetes, sick sinus syndrome status post pacemaker, CAD presents with concern for retaining urine. She notes that started the afternoon after seeing her primary care physician. Notes lower abdominal tenderness and decreased urination. No vomiting. No fevers. No diarrhea. No vaginal bleeding or discharge. No urinary complaints endorsed. No back pain. REVIEW OF SYSTEMS: Pertinent positives: Urinary retention Pertinent negatives: Urinary frequency PHYSICAL EXAM: Nursing triage notes reviewed, Vital signs reviewed Constitutional: please see mdm HENT: MMM Eyes: Pupils equal round and reactive to light, Extraocular muscles intact Neck: No stridor, no JVD, full neck ROM Lungs: Clear to auscultation, No wheezing or rales. No increased work of breathing, no conversational dyspnea, no accessory muscle use, no nasal flaring. No respiratory distress noted Heart: Regular rate and rhythm, No murmurs, No rubs and No gallops, 2+ distal pulses (radial, femoral, posterior tibial) in all extremities Abdomen: Soft, there is no tenderness, rigidity, rebound or guarding, no obviousperitoneal signs, no palpable pulsatile abdominal masses, no auscultated abdominal bruit : No CVAT Extremities: No edema Neuro: No new focal neurological deficits, cranial nerves II through XII intact,5/5 strength in all present extremities. Intact sensation to light touch in all present extremities, 2+ reflexes bilateral patella tendons. Skin: No rash or lesions noted MEDICAL DECISION MAKING: Chief Complaint: please see HPI External records reviewed: Reviewed prior imaging study Factors affecting care: As per HPI Social determinants of health: none History obtained from others: none Consults: none [facility] Narrative: The patient was initially hemodynamically stable, afebrile and nontoxic-appearing. Exam with lower abdominal TTP I considered the following differential diagnosis: AAA, small bowel obstruction,abdominal perforation, appendicitis, pancreatitis, hepatobiliary pathology (acute cholecystitis), mesenteric ischemia, pathology (ie nephrolithiasis), urinary retention. ALL IMAGES (IF OBTAINED) HAVE BEEN PERSONALLY REVIEWED AND INTERPRETED BY MYSELF. Bladder scan with only 22 cc in the bladder, not consistent with urinary retention CT scan abdomen pelvis shows no evidence of acute surgical pathology, no sign ofnephrolithiasis, AAA, obstruction or perforation. CBC without leukocytosis, severe anemia, no thrombocytopenia. BMP at baseline CKD stage III, no significant electrolyte abnormalities LFTs show no evidence of hepatobiliary pathology. Ordered urinalysis however patient provide a sample. She denied any dysuria, hematuria or increased frequency. Fraction of decreased urination. The synthesis of the patient's history, physical exam, labs images suggest no acute life or limb threat etiology. I have with the patient Zofran to treat anynausea encourage more p.o. intake. Strict return precautions were discussed. The patient and/or family, caregivers express understanding. The patient and/orfamily, caregivers agrees with the plan. Shared decision making: I will have a discussion with the patient and or visitors regarding risk/benefits of further testing or admission. They will be made aware of of the risk/benefits inherent in this decision they will be given the opportunity to voice understanding. Total critical care time today provided was at least 0 minutes. This excludes separately billable procedures. Critical care time (if documented) is secondary to the patient having high probability of clinically significant/life threatening deterioration in the patient's condition which required my urgent intervention. Impression: 1. Lower abdominal pain 2. History of CKD Dispo: Discharge home This note was generated with W-locate dictation software. It may contain incorrectwords, spelling, and punctuation that were not noted in review of the chart prior to signing. Lab Data Labs: Laboratory Results - last 24 hr 07/22/24 20:20 WBC 10.9 RBC 4.58 Hgb 13.0 Hct 40.8 MCV 89.1 MCH 28.4 MCHC 31.9 L RDW Std Deviation 44.9 H RDW Coeff of Ross 13.9 Plt Count 269 MPV 10.1 Immature Gran % (Auto) 0.600 Neut % (Auto) 52.8 Lymph % (Auto) 37.0 [place] % (Auto) 7.3 Eos % (Auto) 1.9 Baso % (Auto) 0.4 Absolute Neuts (auto) 5.7 Absolute Lymphs (auto) 4.02 Nucleated RBC % 0 Sodium 141 Potassium 4.0 Chloride 107 Carbon Dioxide 21.6 Anion Gap 13 BUN 26 H Creatinine 1.42 H Estim Creat Clear Calc 33.40 L Est GFR (MDRD) Non-Af 43 L BUN/Creatinine Ratio 18.0 Glucose 178 H Calcium 9.5 Total Bilirubin 0.17 AST 20 ALT 18 Alkaline Phosphatase 76 Total Protein 7.4 Albumin 4.2 Globulin 3.3 Albumin/Globulin Ratio 1.3 Radiography Diagnostic Testing: Clinical Impression(s) from Imaging Studies Abdomen/Pelvis CT 07/22/24 22:15 IMPRESSION: No acute findings in the abdomen and pelvis. Diffuse steatosis and hepatomegaly. [facility] Triage Chief Complaint: Complaint ED Provider: Chaim Maurer Dx/Rx/DC Orders Clinical Impression: Lower abdominal pain, unspecified Instructions: ED Vomiting (Adult) Prescriptions: New ondansetron 4 mg tablet,disintegrating 4 mg PO Q8H PRN PRN (Reason: Nausea) Qty: 10 0RF No Action duloxetine 60 mg capsule,delayed release(DR/EC) 120 mg PO DAILY Rx Instructions: rx by pallative care gabapentin 300 mg capsule 300 mg PO TID Patient Comments: TAKE 1 CAPSULE BY MOUTH THREE TIMES A DAY trazodone 150 mg tablet 150 mg PO QHS Rx Instructions: Take with 50 mg tablet to = 200 mg qhs potassium chloride 20 mEq tablet,ER particles/crystals 20 meq PO DAILY trazodone 50 mg tablet 50 mg PO QHS Rx Instructions: Take with 150 mg tablet to = 200 mg qhs rosuvastatin 20 mg tablet 20 mg PO QHS magnesium oxide 400 mg (241.3 mg magnesium) tablet 400 mg PO DAILY omeprazole 40 mg capsule,delayed release(DR/EC) 40 mg PO DAILY Rx Instructions: TAKE ONE CAPSULE BY MOUTH DAILY FOR STOMACH levothyroxine 25 mcg tablet 25 mcg PO DAILY Rx Instructions: TAKE ONE TABLET BY MOUTH DAILY FOR THYROID ondansetron 8 mg tablet,disintegrating 8 mg PO Q6H PRN PRN (Reason: nausea and vomiting) Rx Instructions: TAKE ONE TABLET BY MOUTH EVERY 6 HOURS NEEDED FOR NAUSEA AND VOMITING calcitonin (salmon) 200 unit/actuation spray,non-aerosol 1 spray intranasal (ALT) DAILY Qty: 3.7 0RF buspirone 5 mg tablet 5 mg PO BID buspirone 15 mg tablet 15 mg PO BID oxycodone-acetaminophen [Percocet] 5-325 mg tablet 1 tab PO Q8H PRN (Reason: pain) 3 Days Qty: 10 0RF clonazepam 0.5 mg tablet 0.5 mg PO 4X/DAY Patient Comments: [NO ORIGINAL SIG] naloxone 4 mg/actuation spray,non-aerosol 4 mg intranasal Q3M PRN (Reason: opioid overdose) Rx Instructions: spray 1 dose into ONE nostril; alternate nostrils w each dose until help arrives guaifenesin [Adult Tussin Chest Congestion] 100 mg/5 mL liquid 400 mg PO Q4H isosorbide mononitrate 60 mg tablet extended release 24 hr 60 mg PO QAM Qty: 90 3RF (DME) Ultra-Light Rollator Misc See Rx Instructions .Route Qty: 1 0RF Rx Instructions: As directed Prolia 60 mg/mL syringe 60 mg subcut [id number] Qty: 1 2RF Patient Comments: due for injection lisinopril 20 mg tablet 20 mg PO DAILY Qty: 90 1RF metoprolol tartrate 100 mg tablet 100 mg PO BID Qty: 180 1RF Rx Instructions: TAKE 1 TABLET BY MOUTH TWICE A DAY FOR BLOOD PRESSURE/HEART fenofibrate 54 mg tablet 54 mg PO DAILY Qty: 90 1RF sumatriptan succinate [Imitrex] 50 mg tablet See Rx Instructions PO .COMPLEX Qty: 10 3RF Rx Instructions: take 1 tab at onset of headache; if no relief may repeat 1 tab after at least 2 hrs; max = 4 tabs/24 hr PO cyclobenzaprine 10 mg tablet 10 mg PO BID PRN (Reason: muscle spasm) Qty: 180 1RF amlodipine 5 mg tablet 5 mg PO BID Qty: 60 11RF glimepiride 2 mg tablet 2 mg PO BID Qty: 60 2RF (DME) FreeStyle Lite Strips Strip See Rx Instructions .MEDSUPPLY Qty: 100 3RF Rx Instructions: check blood glucose daily for type 2 DM (DME) blood-glucose meter [FreeStyle Lite Meter] Kit See Rx Instructions .MEDSUPPLY Qty: 1 0RF Rx Instructions: As directed, check blood glucose daily for type 2 DM (DME) lancets [FreeStyle Lancets] 28 gauge misc See Rx Instructions .MEDSUPPLY Qty: 200 3RF Rx Instructions: check blood glucose daily for type 2 DM Eliquis 5 mg tablet 5 mg PO BID Qty: 180 1RF Rx Instructions: Start after completing starter pack (DME) bed rail See Rx Instructions .Route .MEDSUPPLY Qty: 1 0RF Rx Instructions: As directed (DME) Wheelchair with leg rest / lifts See Rx Instructions .Route .MEDSUPPLY Qty: 1 0RF Rx Instructions: For daily use / mobility purposes Primary Care Provider: Charla Wadsworth Referrals: Charla Wadsworth MD [Primary Care Provider] - Activity Restrictions/Additional Instructions: Thank you for trusting us with your care today! Your labs images were reassuring. No sign of urinary retention. No sign of worsening kidney function. Please take Tylenol (2 pills, 650 mg), ibuprofen (2 pills, 400 mg) every 6 hoursas needed for pain and fever control. Please return to the emergency department if your symptoms change or worsen. Please follow with your primary care physician for further outpatient evaluationand management. Print Language: Kosovan Disposition Disposition: Home, Self Care What to do if you have Problems For any increased pain, shortness of breath, bleeding, nausea or vomiting, chestpain, or any unexpected problems, contact your Primary Care Provider. Call [facility] ([phone]) or report to the closest Emergency Room. Call 911 if necessary. 07/23/245 <Electronically signed by Chaim Maurer DO> Cosigner Signature (if applicable): CC: Dr. Charla Wadsworth MD ~ Signed [facility] Work Phone: [phone] Radiology Diagnostic study [facility]05-05-2025 Telephone encounter Note* Telephone Encounter - Dari Trujillo - 07/13/2024 9:38 AM EDT I will rout to Dr. Mays for signature. Dari Sheth July 13, 2024 9:50 AM [facility]05-05-2025 Miscellaneous Notes* Telephone Encounter - Dari Trujillo - 07/13/2024 9:38 AM EDT I will rout to Dr. Mays for signature. Dari Sheth July 13, 2024 9:50 AM [facility] NoteHNO ID: [id number] Author: DILMA GARAY MD Service: Hospital Medicine Author Type: Physician Type: Progress Notes Filed: 07/06/2024 15:23 Note Text: Documentation Query Please clarify the diagnosis of ARMANI for the patient and provide additional relevant clinical indicators to support the diagnosis as applicable. Acute kidney injury/failure is ruled out for this encounter This document will become part of the patient's medical record.[facility]04-26-2025 NoteHNO ID: [id number] Author: JUAN LUIS BALBUENA RN Service: Nursing Author Type: Registered Nurse Type: Nursing Progress Note Filed: 07/04/2024 13:30 Note Text: Report given to Smitha Arias.[facility] 07-04-2024 NoteHNO ID: [id number] Author: HELEN DOCKERY LISW Service: Care Management Author Type: Vice President Of Communications Type: Care Mgt Progress Note Filed: 07/04/2024 13:31 Note Text: CARE MANAGEMENT DISCHARGE NOTE SERVICE DATE: July 04, 2024 SERVICE TIME: 1:26 PM Admission Date: 07/03/2024 LOS: 1 day Discharge Arrangement Discharge Arrangement: Assisted Living Facility Services Arranged Medical Services: Referred to Outpatient PT/OT Provider Name: [facility] Caregiver Assessment Caregiver is ready, willing and able to meet the patient's needs as recommended by the inter-professional team: Yes Name of Caregiver: staff at [facility]. Transportation Arrangements Transportation Arrangements: [employer] and Phone #:: [facility] ( [facility] ) [phone] / [phone] Date of Trip: 07/04/24 Time of Trip: 0200 Is Patient Medicaid Pending?: No Was transportation financial coverage discussed with family?: Patient Clinical Research Administrator Location: [facility] Destination: [facility] Financial Care Management Responsibility: None Handoff Communication: Handoff to: Primary Care Physician Primary Care Physician Name/Phone: Dr. Charla Wadsworth Additional Information: none Discharge Information Row Name Admission (Current) from 07/03/2024 in [place] [facility] NEURO/CARD Other Follow-Up Type Assisted Living Name [facility] Phone/ Met with patient to discuss SNF recommendation by therapy. Patient absolutely refuses SNF because of her cat at the A.. Called [facility] and spoke with Juana WHARTON who called the supervisor post wave. Can can return to . today if MD write for outpatient therapy and the facility will provide transport to [employer] the company they use. Discussed with patient. Set up 3pm wheelchair van to [facility] today. SIGNATURE: JUSTIN Clark PATIENT NAME: Ramses Bradshaw DATE: July 04, 2024 TIME: 1:26 [facility]04-26-2025 NoteHNO ID: [id number] Author: DEBI DENISE MD Service: Orthopaedic Surgery Author Type: Resident Type: Plan of Care Filed: 07/04/2024 08:01 Note Text: Orthopaedic Surgery Plan of Care Patient obtained MRI L spine only. Will require MRI thoracic spine for further evaluation of clinical concern for thoracic myelopathy however is unable to obtain at this time due to spinal cord stimulator. Per the report, patient is unable to charge remote for this until Saturday and thus won't be compatible until then. Ok to complete cervical and thoracic MRI as outpatient if patient is amendable and would like to leave. Follow up in clinic with Dr. Mays. Please page orthopaedic surgery at #[phone] for additional questions or concerns. Debi Denise MD Orthopaedic Surgery July 04, 2024 7:58 [facility]04-25-2025 NoteHNO ID: [id number] Author: DILMA GARAY MD Service: Hospital Medicine Author Type: Physician Type: Plan of Care Filed: 07/03/2024 16:53 Note Text: Patient is seen and examined at bedside this morning with RN. Complaining of persistent back pain. Patient has a spine stimulator, however with remote is not working at this time. Patient unable to have anybody bring in the field court researcher for the remote. No family or friend available to do so per patient. Unfortunately for this reason she will not be able to get her MRIs done. Patient initially refusing CT spine, however now agreeable to proceeding with that. Will follow-up further recommendations from spine surgery based on CT results. Ensure adequate pain control. Please refer to detailed assessment and plan in HANDP by my colleague.[facility]04-25-2025 NoteHNO ID: [id number] Author: NANI ROD RN Service: Care Management Author Type: Registered Nurse Type: Care Mgt Initial Assessment Filed: 07/03/2024 13:19 Note Text: CARE MANAGEMENT: ASSESSMENT AND DISCHARGE PLAN SERVICE DATE: July 03, 2024 SERVICE TIME: 1:13 PM PCP: No primary care provider on file. Primary Contact: Extended Emergency Contact Information Primary Emergency Contact: Riddhi Bradshaw Relation: Daughter Secondary Emergency Contact: Vita Ye Mobile Relation: Daughter Admission Status: Inpatient Insurance Provider: [employer] MEDICARE PPO Discharge Planning requested by: Per Department Practice Potential Transition Plans To Be Determined Advance Directives Current Advance Directive: None Hydroblaster Attempted to Assist with AD Completion: Yes Action: Education Provided Current Living Arrangements and Support Lives with: Alone Type of Residence: Assisted Living Facility Does the patient have to climb stairs at home?: No Care Facility Name: [facility] Support: Other: See Comment staff at [facility] How do you manage to accomplish the following: Independent: Ambulation, Going to the bathroom, Medication Management, Dress Needs Assistance: Bathe/Shower Dependent: Meals/Meal Prep, Transportation to appointments/community Current Services/Equipment Current Post-Acute Service(s): DME Current DME Type: Wheelchair-electric, Rollator Scooter, Grab bars, Shower seat Discharge Planning Patient Goal(s): Independent living, Be able to go home, General wellness Sunny Side of Choice Explained: Sunny Side of Choice Given: No Reason Not Given: Unable to complete with this assessment - revisit Are you interested in bedside delivery of your medications? No Discharge Planning Participant(s): Patient Patient/Family Comments: Caregiver Assessment: Caregiver is ready, willing and able to meet the patient's needs as recommended by the inter-professional team: Yes Name of Caregiver: Staff at [facility] Transport at Discharge: Transportation Arrangements: [place] Needs Prior to Discharge: Needs Prior to Discharge: To Be Determined Post-Acute Discharge Plan: Patient admitted for back pain with difficulty ambulating due to leg weakness. She has a stimulator in her back, the remote is at bedside, but is not charged. Job Interviewer is not with patient. MD has indicated to patient that she will need to have someone bring the field court researcher to the hospital. Patient lives in [facility] in [place]. She uses a rollater in her apartment to ambulate and has an electric wheelchair she uses when she goes out. She does not have her wheelchair with her. She is dependent with most ADLs, denies any social concerns, +PCP, +RX coverage. Ortho following, await therapy evals when appropriate. Patient goal is to return to [place]. Will need ambulette transport arranged at [facility]. to continue to follow. SIGNATURE: Nani Rod RN PATIENT NAME: Ramses Bradshaw DATE: July 03, 2024 TIME: 1:13 [facility]04-25-2025 Discharge summary Author Kati Burkett [facility] Note Date/Time July 02, 2024 10: 09pm [facility] Medical Records Department [address] [place] [address] Emergency Department Summary 07/02/24 MR#: [id number] Acct: [id number] Name: RAMSES BRADSHAW Rep #:[id number] : 1965 58 From: Kati Burkett DO PCP: Dr. Charla Wadsworth MD Status:R EG ER Location: ED HPI History of Present Illness Chief Complaint: Back Detail of Chief Complaint: Back pain Informant: patient Narrative Narrative: Patient presents to the emergency room with complaint of back pain that she has had for about 2 to 3 weeks. She complains of upper back pain that radiates through to the front of her chest. Patient states that she fell against the bathtub 2 or 3 weeks ago. At that time she had a visit to the emergency department and had a CT scan that showed a chronic fracture of T8. Patient alsoin pain management. She sees Dr. Alexander. Patient states last night she had poonam for help at the assisted living facility because she could not get up off the couch. Normally she is in a electric wheelchair but can stand and pivot. Patient having a hard time moving her legs today. She tells me she is anticoagulated with Eliquis. Patient states that she is scheduled to have an MRI of her back but it is going to take too long to schedule. Patient states that she has a pacemaker that was replaced a few months ago that is compatible with MRI and also has a spinal stimulator that is compatible with MRI but she has to turn it off with a button that she has. Patient denies loss of bowel or bladder function. [facility] Medical History (Updated 07/02/24 @ 16:05 by Lisa Arnold) Pulmonary embolism Atrial fibrillation Diabetes Type 2 diabetes mellitus Blood glucose elevated Dark urine Anxiety Asthma Pacemaker Hypertension UTI (urinary tract infection) Pacemaker battery depletion History of tobacco use Hyperkalemia Knee sprain Post-menopausal Cancer Arthritis Walker as ambulation aid Uses wheelchair High cholesterol Back pain Injury of back Migraine headache Dietary restriction History of IBS Smoker CPAP (continuous positive airway pressure) dependence COPD (chronic obstructive pulmonary disease) Emphysema, unspecified Leg cramps History of pain when walking History of edema History of echocardiogram History of stress test Cardiology follow-up encounter History of CHF (congestive heart failure) Chest pain Osteopenia (~10/2022) Lumbar radiculopathy Debility Leukocytosis Health care maintenance Pain of left thumb Polypharmacy Encephalopathy CHI (closed head injury) Bacteria in urine Health care maintenance Muscle spasm Tobacco use disorder, continuous Encounter for screening for malignant neoplasm of lung in current smoker with 30pack year history or greater Osteoarthritis Greater trochanteric bursitis of left hip Infected dental carries Atherosclerotic heart disease of [place] coronary artery without angina pectoris Monomorphic ventricular tachycardia Hyperlipidemia Intermittent palpitations Diarrhea ELOY (obstructive sleep apnea) COPD (chronic obstructive pulmonary disease) Polycythemia Primary malignant neuroendocrine tumor of stomach Sacral contusion Low back strain Anxiety and depression Hypothyroidism GERD (gastroesophageal reflux disease) PTSD (post-traumatic stress disorder) Vitamin D deficiency Neuropathy Anemia Essential (primary) hypertension Neuroendocrine neoplasm of stomach Sick sinus syndrome Sinus pause Chronic lower back pain Chronic pain syndrome Tobacco dependence syndrome Familial combined hyperlipidemia Obesity Home Medications ?Medication ?Instructions ?Recorded ?Last Taken ?Type duloxetine 60 mg capsule,delayed 120 mg PO DAILY 05/1604/03/24 History release gabapentin 300 mg capsule 300 mg PO TID 05/16/2204/03 History isosorbide mononitrate 60 mg 60 mg PO QAM #90 tabs 07/3104/03/24 Rx tablet,extended release 24 hr walker (Ultra-Light Rollator misc) #1 ea 10/17/22 Unkn own Rx potassium chloride 20 mEq 20 meq PO DAILY 01/30/23 History tablet,extended release(part/cryst) denosumab 60 mg/mL subcutaneous 60 mg subcut [id number] #1 mL 02/15/23 09/09/23 Rx syringe (Prolia) lisinopril 20 mg tablet 20 mg PO DAILY #90 tabs 02/0804/03/24 Rx metoprolol tartrate 100 mg tablet 100 mg PO BID blood pressure, 04/26/23 04/03/24 Rx heart #180 tabs levothyroxine 25 mcg tablet 25 mcg PO DAILY 07/25/23 0 04/03/24 History magnesium oxide 400 mg (241.3 mg 400 mg PO DAILY 07/2404/03/24 History magnesium) tablet omeprazole 40 mg capsule,delayed 40 mg PO DAILY 04/03/24 History release fenofibrate 54 mg tablet 54 mg PO DAILY #90 tabs 07/1004/03/24 Rx sumatriptan succinate 50 mg tablet See Rx Instructions PO .COMPLEX 08/09/23 Unknown Rx (Imitrex) #10 tabs ondansetron 8 mg disintegrating 8 mg PO Q6H PRN PRN na usea and 09/09/23 04/03/24 History tablet vomiting rosuvastatin 20 mg tablet 20 mg PO QHS 09/09/23 History trazodone 150 mg tablet 150 mg PO QHS 09/09/2304/02 History trazodone 50 mg tablet 50 mg PO QHS 09/09/23 History cyclobenzaprine 10 mg tablet 10 mg PO BID PRN muscle s pasm #180 10/29/23 04/03/24 Rx tabs amlodipine 5 mg tablet 5 mg PO BID #60 tabs 4 04/03/24 Rx buspirone 15 mg tablet 15 mg PO BID 04/03/24 History buspirone 5 mg tablet 5 mg PO BID 04/03/24 Unknown History glimepiride 2 mg tablet 2 mg PO BID #60 tabs 5 Unknown Rx blood sugar diagnostic (FreeStyle #100 ea 04/21/24 Unk nown Rx Lite Strips) blood-glucose meter (FreeStyle #1 ea 04/21/24 Unknown Rx Lite Meter kit) lancets 28 gauge (FreeStyle #200 ea 04/21/24 Unknown R x Lancets) oxycodone-acetaminophen 5 mg-325 1 tab PO Q8H PRN pain 3 days #10 05/04/24 Unknown Rx mg tablet (Percocet) tabs apixaban 5 mg tablet (Eliquis) 5 mg PO BID #180 tabs 0 05/05/24 Unknown Rx bed rail #1 ea 05/06/24 Unknown Rx clonazepam 0.5 mg tablet 0.5 mg PO 4X/DAY 05/12/24 Un known History guaifenesin 100 mg/5 mL oral 400 mg PO Q4H 05/12/24 Un known History liquid (Adult Tussin Chest Congestion) naloxone 4 mg/actuation nasal spray 4 mg intranasal Q3 M PRN opioid 05/12/24 Unkn own History overdose Wheelchair with leg rest / lifts #1 ea 06/26/24 Unknow n Rx calcitonin (salmon) 200 1 spray intranasal (ALT) NARA LY 06/29/24 Unknown Rx unit/actuation nasal spray #3.7 mL Allergy/AdvReac Type Severity Reaction Status Date / Time latex Allergy Intermediate skin Verified 07/02/24 14:34 irritation aspirin AdvReac Severe Nausea/Vom/ Verified 07/02/24 14:34 Diarrhea erythromycin base AdvReac Severe Vomiting,di Verified 07/02/24 14:34 (Erythromycin Base) arrhea NSAIDS (Non-Steroidal AdvReac Severe Vomiting,di Verified 07/02/24 14:34 Anti-Inflamma arrhea Family History Daughter Multiple sclerosis Father CAD (coronary artery disease) Heart disease Multiple sclerosis Grandfather Heart disease Uncle Heart disease Aunt No problems noted. Sister Colon cancer Mother Hypertension Surgical History Squamous cell carcinoma History of lumbar fusion History of esophagogastroduodenoscopy (EGD) Status post insertion of spinal cord stimulator History of left heart catheterization (08/17/21) History of colonoscopy Presence of permanent cardiac pacemaker (2013) History of resection of stomach Hx of cholecystectomy History of elbow surgery History of hysterectomy History of appendectomy History of laparotomy history excision neuroendocrine tumor Social History (Updated 07/02/24 @ 14:31 by Lis Basilio) household members: none housing: assisted living facility current occupational status: unemployed Smoking Status: Current some day smoker tobacco type: cigarettes Tobacco: How many years used: 30 how long ago did patient quit smoking: A few months ago second hand exposure: Yes alcohol intake: never substance use type: does not use caffeine: Yes Type: carbonated beverages Number of servings: 1 and coffee Number of servings: 2 what type of physical activity do you participate in: none ivania/judaism: None seatbelt use: always do you feel safe at home: Yes ROS ROS ED Review of Systems ROS Unobtainable: other Constitutional Constitutional ED: Reports lethargy; Denies chills, fever(s), sweats or weight loss Eyes Eyes: Denies blurry vision, change in vision or diplopia ENT ENT ED: Denies rhinorrhea or sore throat Cardiovascular Cardiovascular: Denies chest pain, orthopnea or racing heartbeat Respiratory/Chest Respiratory/Chest: Denies cough, dyspnea, dyspnea on exertion, orthopnea or sputum Gastrointestinal Gastrointestinal: Denies abdominal pain, diarrhea, nausea or vomiting Genitourinary Genitourinary ED: Denies dysuria, hematuria or urinary frequency Musculoskeletal Musculoskeletal: Reports back pain; Denies arthralgias, myalgias or neck pain Integumentary Denies abscess, Abrasions or rash Neurologic Neurologic: Denies headache(s) or weakness Psychiatric Psychiatric: Denies anxiety, depression or suicidal thoughts Endocrine Endocrinology: Denies polydipsia, polyphagia or polyuria Hematologic/Lymphatic Hematologic/Lymphatic: Denies easy bleeding, easy bruising or lymphadenopathy Allergic/Immunologic Allergic/Immunologic ED: Denies mouth swelling, tongue swelling or urticaria EXAM Physical Exam Const Vital Signs: 07/02/24 14:28 Temperature 98.7 F Temperature Source Oral Pulse Rate 60 Respiratory Rate 15 Blood Pressure 115/73 Blood Pressure Mean 87 Pulse Ox 97 Oxygen Delivery Method Room Air Positive well nourished and well developed General Appearance ED: well developed and NAD HEENT Reports TM's clear and moist mucous membranes normocephalic and atraumatic; Negative for trauma or tenderness Tympanic Membrane ED: Yes TM's clear Eyes PERRL and EOMs intact bilaterally General Eye ED: Negative for pale conjunctiva or scleral icterus Neck no lymphadenopathy, supple and no JVD General: Negative for tenderness Chest Wall inspection of chest normal and palpation of chest normal Chest: Negative for tenderness Resp normal respiratory effort and clear to auscultation bilaterally Effort and Inspection: Negative for respiratory distress or pain with movement Auscultation: Negative for rhonchi, wheezes or diminished lung sounds Cardio regular rate, regular rhythm, S1 normal heart sound, S2 normal heart sound and no murmurs Peripheral Pulses: pulses 2+ throughout GI normal to inspection, nondistended, normoactive bowel sounds, soft to palpation,non-tender, non-distended and no masses Back/Spine no CVA tenderness Back/Spine Narrative: Diffuse tenderness over the thoracic and lumbar spine. There is no erythema or warmth noted. She has pain with straight leg raising bilaterally while supine at about 45 degrees. Deep tendon reflexes are diminished bilaterally at the patella and Achilles at +1 and are symmetric. Subtle L5 weakness bilaterally. Extremity normal to inspection General Extremety ED: Negative for edema General Extremity: Negative for edema Neuro oriented x3, CN's II-XII intact bilaterally, no sensory deficits noted and gait normal Sensorium / Orientation: awake, alert, oriented to person, oriented to place andoriented to time Motor Exam: strength 5/5 throughout and strength abnormal Psych mental status grossly normal Skin no rashes or lesions noted and no wounds MDM MDM MDM Narrative Medical decision making narrative: Patient presents with history of chronic back pain with a fall that occurred about 3 weeks ago and now having continued pain since that time. Tells me her legs started feeling more weak last night and today. Pain management attemptingto obtain MRI of her back however requiring preauthorization's and [employer] before they can get her in to have her MRI. I discussed case with Dr. Alexander her touch up painter who recommended obtaining the MRI from the emergency department if possible. Discussed with MRI and they tell me they will not be able to do the MRI today but will require admission to have it done tomorrow. Dr. Alexander stated that the nerve stimulator is MRI compatible and itis documented in the computer that her pacemaker is compatible with MRI as well. Will discuss with hospitalist. I was contacted by service tech again and told thatthey will not be able to do the MRI at our facility given that patient has both a pacemaker and a spinal stimulator and it would be off label and I needed to transfer her to another facility where they could do off label imaging. I was told [facility] would be able to do it and we contacted them and was told to try [facility] As patient's had prior studies done there before. Patient is comfortable with plan to go to [facility]. Discussed with transfer line as well as back specialist who recommended that we admit to medicine at their facility and they do have a protocol for obtaining the MRI where she would have to be in the MRI further 30 minutes and then out for 90 minutes then back in. Patient was medicated with morphine and Zofran. She willbe transferred to [facility] for definitive care. Concern for possible cord compression although her symptoms have been very progressive over the course of the last 3 to 4 weeks. Patient also on Eliquis and concern for spinal epidural hematoma. Lab Data Attestation: I reviewed the patient's lab results. Labs: Laboratory Results - last 24 hr 07/02/24 15:24 WBC 8.0 RBC 4.70 Hgb 13.5 Hct 41.3 MCV 87.9 MCH 28.7 MCHC 32.7 RDW Std Deviation 43.6 RDW Coeff of Ross 13.6 Plt Count 228 MPV 9.3 Immature Gran % (Auto) 0.500 Neut % (Auto) 50.2 Lymph % (Auto) 40.0 [place] % (Auto) 6.4 Eos % (Auto) 2.5 Baso % (Auto) 0.4 Absolute Neuts (auto) 4.0 Absolute Lymphs (auto) 3.18 Nucleated RBC % 0 Discharge Plan Triage Chief Complaint: Back ED Provider: Kati Burkett Dx/Rx/DC Orders Clinical Impression: Back pain Prescriptions: No Action duloxetine 60 mg capsule,delayed release(DR/EC) 120 mg PO DAILY Rx Instructions: rx by pallative care gabapentin 300 mg capsule 300 mg PO TID Patient Comments: TAKE 1 CAPSULE BY MOUTH THREE TIMES A DAY trazodone 150 mg tablet 150 mg PO QHS Rx Instructions: Take with 50 mg tablet to = 200 mg qhs potassium chloride 20 mEq tablet,ER particles/crystals 20 meq PO DAILY trazodone 50 mg tablet 50 mg PO QHS Rx Instructions: Take with 150 mg tablet to = 200 mg qhs rosuvastatin 20 mg tablet 20 mg PO QHS magnesium oxide 400 mg (241.3 mg magnesium) tablet 400 mg PO DAILY omeprazole 40 mg capsule,delayed release(DR/EC) 40 mg PO DAILY Rx Instructions: TAKE ONE CAPSULE BY MOUTH DAILY FOR STOMACH levothyroxine 25 mcg tablet 25 mcg PO DAILY Rx Instructions: TAKE ONE TABLET BY MOUTH DAILY FOR THYROID ondansetron 8 mg tablet,disintegrating 8 mg PO Q6H PRN PRN (Reason: nausea and vomiting) Rx Instructions: TAKE ONE TABLET BY MOUTH EVERY 6 HOURS NEEDED FOR NAUSEA AND VOMITING calcitonin (salmon) 200 unit/actuation spray,non-aerosol 1 spray intranasal (ALT) DAILY Qty: 3.7 0RF buspirone 5 mg tablet 5 mg PO BID buspirone 15 mg tablet 15 mg PO BID oxycodone-acetaminophen [Percocet] 5-325 mg tablet 1 tab PO Q8H PRN (Reason: pain) 3 Days Qty: 10 0RF clonazepam 0.5 mg tablet 0.5 mg PO 4X/DAY Patient Comments: [NO ORIGINAL SIG] naloxone 4 mg/actuation spray,non-aerosol 4 mg intranasal Q3M PRN (Reason: opioid overdose) Rx Instructions: spray 1 dose into ONE nostril; alternate nostrils w each dose until help arrives guaifenesin [Adult Tussin Chest Congestion] 100 mg/5 mL liquid 400 mg PO Q4H isosorbide mononitrate 60 mg tablet extended release 24 hr 60 mg PO QAM Qty: 90 3RF (DME) Ultra-Light Rollator Misc See Rx Instructions .Route Qty: 1 0RF Rx Instructions: As directed Prolia 60 mg/mL syringe 60 mg subcut [id number] Qty: 1 2RF Patient Comments: due for injection lisinopril 20 mg tablet 20 mg PO DAILY Qty: 90 1RF metoprolol tartrate 100 mg tablet 100 mg PO BID Qty: 180 1RF Rx Instructions: TAKE 1 TABLET BY MOUTH TWICE A DAY FOR BLOOD PRESSURE/HEART fenofibrate 54 mg tablet 54 mg PO DAILY Qty: 90 1RF sumatriptan succinate [Imitrex] 50 mg tablet See Rx Instructions PO .COMPLEX Qty: 10 3RF Rx Instructions: take 1 tab at onset of headache; if no relief may repeat 1 tab after at least 2 hrs; max = 4 tabs/24 hr PO cyclobenzaprine 10 mg tablet 10 mg PO BID PRN (Reason: muscle spasm) Qty: 180 1RF amlodipine 5 mg tablet 5 mg PO BID Qty: 60 11RF glimepiride 2 mg tablet 2 mg PO BID Qty: 60 2RF (DME) FreeStyle Lite Strips Strip See Rx Instructions .MEDSUPPLY Qty: 100 3RF Rx Instructions: check blood glucose daily for type 2 DM (DME) blood-glucose meter [FreeStyle Lite Meter] Kit See Rx Instructions .MEDSUPPLY Qty: 1 0RF Rx Instructions: As directed, check blood glucose daily for type 2 DM (DME) lancets [FreeStyle Lancets] 28 gauge [facility] See Rx Instructions .MEDSUPPLY Qty: 200 3RF Rx Instructions: check blood glucose daily for type 2 DM Eliquis 5 mg tablet 5 mg PO BID Qty: 180 1RF Rx Instructions: Start after completing starter pack (DME) bed rail See Rx Instructions .Route .MEDSUPPLY Qty: 1 0RF Rx Instructions: As directed (DME) Wheelchair with leg rest / lifts See Rx Instructions .Route .MEDSUPPLY Qty: 1 0RF Rx Instructions: For daily use / mobility purposes Primary Care Provider: Charla Wadsworth Referrals: Charla Wadsworth MD [Primary Care Provider] - Print Language: Kosovan Disposition Disposition: DC/Tx to Another Type of HCF What to do if you have Problems For any increased pain, shortness of breath, bleeding, nausea or vomiting, chestpain, or any unexpected problems, contact your Primary Care Provider. Call [facility] ([phone]) or report to the closest Emergency Room. Call 911 if necessary. 07/02/242208 <Electronically signed by Kati Burkett DO> Cosigner Signature (if applicable): CC: Dr. Charla Wadsworth MD ~ Signed [facility] Work Phone: [phone] 432-881904-21-2025 Discharge summary Author Virgil Daniels [facility] Note Date/Time June 29, 2024 6:2 9pm [facility] Medical Records Department [address] [place] [address] Emergency Department Summary 06/29/24 MR#: [id number] Acct: [id number] Name: RAMSES BRADSHAW Rep #:[id number] : 1965 58 From: Virgil Daniels MD PCP: Dr. Charla Wadsworth MD Status:R EG ER Location: ED HPI History of Present Illness Chief Complaint: Chest Other Detail of Chief Complaint: Back pain/chest pain Informant: patient Onset/Context/Timing Onset: Weeks Context: Sudden Onset Timing: Continuous and Waxes and wanes Quality: Pain Location: Mid upper back midline radiating to the right and left Current Severity: Mild Maximum Severity: Severe Worsened by: Certain movements and deep breathing Relieved by: Nothing Associated Symptoms Associated Symptoms: No other symptoms Narrative Narrative: Patient is a 58-year-old woman. She has history of COPD, obstructive sleep apnea, polycythemia, hyperlipidemia, hypertension, atherosclerotic heart diseaseand chronic pain. She also has history of osteoarthritis there is no history that I am able to find regarding osteopenia. She denies fever, chills night sweats. She denies cough, shortness of breath difficulty breathing. She denies anterior chest pain. She does endorse nausea with vomiting. This started prior to the pain. She also has chronic diarrhea. She does endorse numbness of the right lower extremity. This has been going on for some time. This is not a new symptom. Prior similar symptoms: Yes Recent Illness/Hospitalization: Yes [facility] Medical History Diabetes Type 2 diabetes mellitus Blood glucose elevated Dark urine Anxiety Asthma Pacemaker Hypertension UTI (urinary tract infection) Pacemaker battery depletion History of tobacco use Hyperkalemia Knee sprain Post-menopausal Cancer Arthritis Walker as ambulation aid Uses wheelchair High cholesterol Back pain Injury of back Migraine headache Dietary restriction History of IBS Smoker CPAP (continuous positive airway pressure) dependence COPD (chronic obstructive pulmonary disease) Emphysema, unspecified Leg cramps History of pain when walking History of edema History of echocardiogram History of stress test Cardiology follow-up encounter History of CHF (congestive heart failure) Chest pain Osteopenia (~10/2022) Lumbar radiculopathy Debility Leukocytosis Health care maintenance Pain of left thumb Polypharmacy Encephalopathy CHI (closed head injury) Bacteria in urine Health care maintenance Muscle spasm Tobacco use disorder, continuous Encounter for screening for malignant neoplasm of lung in current smoker with 30pack year history or greater Osteoarthritis Greater trochanteric bursitis of left hip Infected dental carries Atherosclerotic heart disease of [place] coronary artery without angina pectoris Monomorphic ventricular tachycardia Hyperlipidemia Intermittent palpitations Diarrhea ELOY (obstructive sleep apnea) COPD (chronic obstructive pulmonary disease) Polycythemia Primary malignant neuroendocrine tumor of stomach Sacral contusion Low back strain Anxiety and depression Hypothyroidism GERD (gastroesophageal reflux disease) PTSD (post-traumatic stress disorder) Vitamin D deficiency Neuropathy Anemia Essential (primary) hypertension Neuroendocrine neoplasm of stomach Sick sinus syndrome Sinus pause Chronic lower back pain Chronic pain syndrome Tobacco dependence syndrome Familial combined hyperlipidemia Obesity Home Medications ?Medication ?Instructions ?Recorded ?Last Taken ?Type duloxetine 60 mg capsule,delayed 120 mg PO DAILY 05/1604/03/24 History release gabapentin 300 mg capsule 300 mg PO TID 05/16/2204/03 History isosorbide mononitrate 60 mg 60 mg PO QAM #90 tabs 07/3104/03/24 Rx tablet,extended release 24 hr walker (Ultra-Light Rollator misc) #1 ea 10/17/22 Unkn own Rx potassium chloride 20 mEq 20 meq PO DAILY 01/30/23 History tablet,extended release(part/cryst) denosumab 60 mg/mL subcutaneous 60 mg subcut [id number] #1 mL 02/15/23 09/09/23 Rx syringe (Prolia) lisinopril 20 mg tablet 20 mg PO DAILY #90 tabs 02/0804/03/24 Rx metoprolol tartrate 100 mg tablet 100 mg PO BID blood pressure, 04/26/23 04/03/24 Rx heart #180 tabs levothyroxine 25 mcg tablet 25 mcg PO DAILY 07/25/23 0 04/03/24 History magnesium oxide 400 mg (241.3 mg 400 mg PO DAILY 07/2404/03/24 History magnesium) tablet omeprazole 40 mg capsule,delayed 40 mg PO DAILY 04/03/24 History release fenofibrate 54 mg tablet 54 mg PO DAILY #90 tabs 07/1004/03/24 Rx sumatriptan succinate 50 mg tablet See Rx Instructions PO .COMPLEX 08/09/23 Unknown Rx (Imitrex) #10 tabs ondansetron 8 mg disintegrating 8 mg PO Q6H PRN PRN na usea and 09/09/23 04/03/24 History tablet vomiting rosuvastatin 20 mg tablet 20 mg PO QHS 09/09/23 History trazodone 150 mg tablet 150 mg PO QHS 09/09/2304/02 History trazodone 50 mg tablet 50 mg PO QHS 09/09/23 History cyclobenzaprine 10 mg tablet 10 mg PO BID PRN muscle s pasm #180 10/29/23 04/03/24 Rx tabs amlodipine 5 mg tablet 5 mg PO BID #60 tabs 4 04/03/24 Rx buspirone 15 mg tablet 15 mg PO BID 04/03/24 History buspirone 5 mg tablet 5 mg PO BID 04/03/24 Unknown History glimepiride 2 mg tablet 2 mg PO BID #60 tabs 5 Unknown Rx blood sugar diagnostic (FreeStyle #100 ea 04/21/24 Unk nown Rx Lite Strips) blood-glucose meter (FreeStyle #1 ea 04/21/24 Unknown Rx Lite Meter kit) lancets 28 gauge (FreeStyle #200 ea 04/21/24 Unknown R x Lancets) oxycodone-acetaminophen 5 mg-325 1 tab PO Q8H PRN pain 3 days #10 05/04/24 Unknown Rx mg tablet (Percocet) tabs apixaban 5 mg tablet (Eliquis) 5 mg PO BID #180 tabs 0 05/05/24 Unknown Rx bed rail #1 ea 05/06/24 Unknown Rx clonazepam 0.5 mg tablet 0.5 mg PO 4X/DAY 05/12/24 Un known History guaifenesin 100 mg/5 mL oral 400 mg PO Q4H 05/12/24 Un known History liquid (Adult Tussin Chest Congestion) naloxone 4 mg/actuation nasal spray 4 mg intranasal Q3 M PRN opioid 05/12/24 Unknown History overdose Wheelchair with leg rest / lifts #1 ea 06/26/24 Unknow n Rx calcitonin (salmon) 200 1 spray intranasal (ALT) NARA LY 06/29/24 Unknown Rx unit/actuation nasal spray #3.7 mL Allergy/AdvReac Type Severity Reaction Status Date / Time latex Allergy Intermediate skin Verified 06/29/24 17:32 irritation aspirin AdvReac Severe Nausea/Vom/ Verified 06/29/24 17:32 Diarrhea erythromycin base AdvReac Severe Vomiting,di Verified 06/29/24 17:32 (Erythromycin Base) arrhea NSAIDS (Non-Steroidal AdvReac Severe Vomiting,di Verified 06/29/24 17:32 Anti-Inflamma arrhea Family History Daughter Multiple sclerosis Father CAD (coronary artery disease) Heart disease Multiple sclerosis Grandfather Heart disease Uncle Heart disease Aunt No problems noted. Sister Colon cancer Mother Hypertension Surgical History Squamous cell carcinoma History of lumbar fusion History of esophagogastroduodenoscopy (EGD) Status post insertion of spinal cord stimulator History of left heart catheterization (08/17/21) History of colonoscopy Presence of permanent cardiac pacemaker (2013) History of resection of stomach Hx of cholecystectomy History of elbow surgery History of hysterectomy History of appendectomy History of laparotomy history excision neuroendocrine tumor Social History Smoking Status: Current some day smoker tobacco type: cigarettes Tobacco: How many years used: 30 how long ago did patient quit smoking: A few months ago second hand exposure: Yes alcohol intake: never substance use type: does not use caffeine: Yes Type: carbonated beverages Number of servings: 1 and coffee Number of servings: 2 what type of physical activity do you participate in: none ivania/judaism: None seatbelt use: always do you feel safe at home: Yes ROS ROS ED Constitutional Constitutional ED: Denies chills, fever(s), subjective, sweats or weight loss Cardiovascular Cardiovascular: Reports chest pain; Denies orthopnea, palpitations, paroxysmal nocturnal dyspnea or racing heartbeat Respiratory/Chest Respiratory/Chest: Reports dyspnea; Denies cough, dyspnea on exertion, orthopneaor paroxysmal nocturnal dyspnea Gastrointestinal Gastrointestinal: Reports diarrhea, nausea and vomiting; Denies abdominal pain, constipation or melena Genitourinary Genitourinary ED: Denies dysuria, hematuria or urinary frequency Musculoskeletal Musculoskeletal: Reports arthralgias and back pain Integumentary Reports rash Neurologic Neurologic: Reports paresthesias RLE; Denies weakness Hematologic/Lymphatic Hematologic/Lymphatic: Reports systems reviewed and no addt'l complaints, exceptas documented EXAM Physical Exam Const Vital Signs: 06/29/24 17:28 06/29/24 17:35 Temperature 98.6 F Temperature Source Oral Pulse Rate 65 Respiratory Rate 19 H Respiratory Effort Normal Non-Labored Blood Pressure 146/85 H Blood Pressure Mean 105 Pulse Ox 98 Oxygen Delivery Method Room Air Positive well nourished and well developed Constitutional Narrative: BMI is 43.9. Patient has a depressed affect. General Appearance ED: well developed, NAD and pallor; Negative for cyanotic or diaphoretic HEENT HEENT Narrative: Head is atraumatic normocephalic. Ears normal. Nares patent Eyes PERRL and EOMs intact bilaterally General Eye ED: Negative for pale conjunctiva or scleral icterus Neck no lymphadenopathy, supple and no JVD Chest Wall inspection of chest normal and palpation of chest normal Resp normal respiratory effort and clear to auscultation bilaterally Cardio regular rate, regular rhythm, S1 normal heart sound, S2 normal heart sound and no murmurs Back/Spine no CVA tenderness Extremity normal to inspection Neuro oriented x3, CN's II-XII intact bilaterally and no sensory deficits noted Sensorium / Orientation: alert Psych Mood & Affect: depressed Skin General Skin Exam: pallor MDM MDM MDM Narrative Medical decision making narrative: Patient was diagnosed with a T8 compression fracture on CT performed June 13, 2024. She contacted her pain management physician. She asked if they had called. She was told no. She told her that she was coming in because she couldnot tolerate the pain. She was not prescribed [place] calcitonin nasal spray. She did take a Percocet at approximately 1500. She does have history of osteoporosis. In light of this we will treat her pain with IV morphine, lidocaine patch and will prescribe calcitonin [place] nasal spray. Will not prescribe NSAIDs because they are is evidence of delayed healing of the vertebrae with NSAIDs. History & Record Review Additional record(s) reviewed:: Prior outpatient record (Documented in the HPI narrative) Treatment and Re-Evaluation :: Patient was reassessed at 1825. She is smiling. She states the pain has improved. She was given additional dose of morphine. She was discharged to home in stable improved condition. Discharge Plan Triage Chief Complaint: Chest Other ED Provider: Virgil Daniels Dx/Rx/DC Orders Clinical Impression: Closed fracture of T8 vertebra, Chest pain, Type 2 diabetes mellitus, Essential(primary) hypertension, Presence of permanent cardiac pacemaker, Osteoarthritis,Chronic pain disorder Instructions: ED Fracture, Vertebral Compression Prescriptions: New calcitonin (salmon) 200 unit/actuation spray,non-aerosol 1 spray intranasal (ALT) DAILY Qty: 3.7 0RF No Action duloxetine 60 mg capsule,delayed release(DR/EC) 120 mg PO DAILY Rx Instructions: rx by pallative care gabapentin 300 mg capsule 300 mg PO TID Patient Comments: TAKE 1 CAPSULE BY MOUTH THREE TIMES A DAY trazodone 150 mg tablet 150 mg PO QHS Rx Instructions: Take with 50 mg tablet to = 200 mg qhs potassium chloride 20 mEq tablet,ER particles/crystals 20 meq PO DAILY trazodone 50 mg tablet 50 mg PO QHS Rx Instructions: Take with 150 mg tablet to = 200 mg qhs rosuvastatin 20 mg tablet 20 mg PO QHS magnesium oxide 400 mg (241.3 mg magnesium) tablet 400 mg PO DAILY omeprazole 40 mg capsule,delayed release(DR/EC) 40 mg PO DAILY Rx Instructions: TAKE ONE CAPSULE BY MOUTH DAILY FOR STOMACH levothyroxine 25 mcg tablet 25 mcg PO DAILY Rx Instructions: TAKE ONE TABLET BY MOUTH DAILY FOR THYROID ondansetron 8 mg tablet,disintegrating 8 mg PO Q6H PRN PRN (Reason: nausea and vomiting) Rx Instructions: TAKE ONE TABLET BY MOUTH EVERY 6 HOURS NEEDED FOR NAUSEA AND VOMITING buspirone 5 mg tablet 5 mg PO BID buspirone 15 mg tablet 15 mg PO BID oxycodone-acetaminophen [Percocet] 5-325 mg tablet 1 tab PO Q8H PRN (Reason: pain) 3 Days Qty: 10 0RF clonazepam 0.5 mg tablet 0.5 mg PO 4X/DAY Patient Comments: [NO ORIGINAL SIG] naloxone 4 mg/actuation spray,non-aerosol 4 mg intranasal Q3M PRN (Reason: opioid overdose) Rx Instructions: spray 1 dose into ONE nostril; alternate nostrils w each dose until help arrives guaifenesin [Adult Tussin Chest Congestion] 100 mg/5 mL liquid 400 mg PO Q4H isosorbide mononitrate 60 mg tablet extended release 24 hr 60 mg PO QAM Qty: 90 3RF (DME) Ultra-Light Rollator Misc See Rx Instructions .Route Qty: 1 0RF Rx Instructions: As directed Prolia 60 mg/mL syringe 60 mg subcut [id number] Qty: 1 2RF Patient Comments: due for injection lisinopril 20 mg tablet 20 mg PO DAILY Qty: 90 1RF metoprolol tartrate 100 mg tablet 100 mg PO BID Qty: 180 1RF Rx Instructions: TAKE 1 TABLET BY MOUTH TWICE A DAY FOR BLOOD PRESSURE/HEART fenofibrate 54 mg tablet 54 mg PO DAILY Qty: 90 1RF sumatriptan succinate [Imitrex] 50 mg tablet See Rx Instructions PO .COMPLEX Qty: 10 3RF Rx Instructions: take 1 tab at onset of headache; if no relief may repeat 1 tab after at least 2 hrs; max = 4 tabs/24 hr PO cyclobenzaprine 10 mg tablet 10 mg PO BID PRN (Reason: muscle spasm) Qty: 180 1RF amlodipine 5 mg tablet 5 mg PO BID Qty: 60 11RF glimepiride 2 mg tablet 2 mg PO BID Qty: 60 2RF (DME) FreeStyle Lite Strips Strip See Rx Instructions .MEDSUPPLY Qty: 100 3RF Rx Instructions: check blood glucose daily for type 2 DM (DME) blood-glucose meter [FreeStyle Lite Meter] Kit See Rx Instructions .MEDSUPPLY Qty: 1 0RF Rx Instructions: As directed, check blood glucose daily for type 2 DM (DME) lancets [FreeStyle Lancets] 28 gauge misc See Rx Instructions .MEDSUPPLY Qty: 200 3RF Rx Instructions: check blood glucose daily for type 2 DM Eliquis 5 mg tablet 5 mg PO BID Qty: 180 1RF Rx Instructions: Start after completing starter pack (DME) bed rail See Rx Instructions .Route .MEDSUPPLY Qty: 1 0RF Rx Instructions: As directed (DME) Wheelchair with leg rest / lifts See Rx Instructions .Route .MEDSUPPLY Qty: 1 0RF Rx Instructions: For daily use / mobility purposes Primary Care Provider: Charla Wadsworth Referrals: Charla Wadsworth MD [Primary Care Provider] - As Needed Print Language: Kosovan Disposition Disposition: Home, Self Care What to do if you have Problems For any increased pain, shortness of breath, bleeding, nausea or vomiting, chestpain, or any unexpected problems, contact your Primary Care Provider. Call [facility] ([phone]) or report to the closest Emergency Room. Call 911 if necessary. 06/29/24 [id number] <Electronically signed by Virgil Daniels MD> Cosigner Signature (if applicable): CC: Dr. Charla Wadsworth MD ~ Signed [facility] Work Phone: [phone]) 764-849204-05-2025 Radiology Diagnostic study [facility]04-05-2025 Radiology Diagnostic study [facility]04-05-2025 Discharge summary Author Gigi Barton [facility] Note Date/Time June 13, 2024 7:[address] [facility] Medical Records Department [address] [place] [id number] Emergency Department Summary 06/13/24 MR#: [id number] Acct: [id number] Name: RAMSES BRADSHAW Rep #:[id number] : 1965 58 From: Gigi Barton MD PCP: Dr. Charla Wadsworth MD Status:R EG ER Location: ED HPI History of Present Illness Chief Complaint: Back Narrative Narrative: 58-year-old female past medical history of chronic low back pain for which she takes Percocet, presents via EMS status post fall yesterday. She states she wasstanding in her bathroom, and her legs buckled and became weak. She fell and hit her mid back against the bathtub as she was standing in front of the sink. She denies hitting her head or loss of consciousness. She now has right scapular pain and pain when she moves her right arm as well as midthoracic back pain. She denies other injuries. She complains of the mid back pain and right scapular pain especially when she moves her right arm. [facility] Medical History Diabetes Type 2 diabetes mellitus Blood glucose elevated Dark urine Anxiety Asthma Pacemaker Hypertension UTI (urinary tract infection) Pacemaker battery depletion History of tobacco use Hyperkalemia Knee sprain Post-menopausal Cancer Arthritis Walker as ambulation aid Uses wheelchair High cholesterol Back pain Injury of back Migraine headache Dietary restriction History of IBS Smoker CPAP (continuous positive airway pressure) dependence COPD (chronic obstructive pulmonary disease) Emphysema, unspecified Leg cramps History of pain when walking History of edema History of echocardiogram History of stress test Cardiology follow-up encounter History of CHF (congestive heart failure) Chest pain Osteopenia (~10/2022) Lumbar radiculopathy Debility Leukocytosis Health care maintenance Pain of left thumb Polypharmacy Encephalopathy CHI (closed head injury) Bacteria in urine Health care maintenance Muscle spasm Tobacco use disorder, continuous Encounter for screening for malignant neoplasm of lung in current smoker with 30pack year history or greater Osteoarthritis Greater trochanteric bursitis of left hip Infected dental carries Atherosclerotic heart disease of [place] coronary artery without angina pectoris Monomorphic ventricular tachycardia Hyperlipidemia Intermittent palpitations Diarrhea ELOY (obstructive sleep apnea) COPD (chronic obstructive pulmonary disease) Polycythemia Primary malignant neuroendocrine tumor of stomach Sacral contusion Low back strain Anxiety and depression Hypothyroidism GERD (gastroesophageal reflux disease) PTSD (post-traumatic stress disorder) Vitamin D deficiency Neuropathy Anemia Essential (primary) hypertension Neuroendocrine neoplasm of stomach Sick sinus syndrome Sinus pause Chronic lower back pain Chronic pain syndrome Tobacco dependence syndrome Familial combined hyperlipidemia Obesity Home Medications ?Medication ?Instructions ?Recorded ?Last Taken ?Type duloxetine 60 mg capsule,delayed 120 mg PO DAILY 05/1604/03/24 History release gabapentin 300 mg capsule 300 mg PO TID 05/16/2204/03 History isosorbide mononitrate 60 mg 60 mg PO QAM #90 tabs 07/3104/03/24 Rx tablet,extended release 24 hr walker (Ultra-Light Rollator mis) #1 ea 10/17/22 Unkn own Rx potassium chloride 20 mEq 20 meq PO DAILY 01/30/23 History tablet,extended release(part/cryst) denosumab 60 mg/mL subcutaneous 60 mg subcut [id number] #1 mL 02/15/23 09/09/23 Rx syringe (Prolia) lisinopril 20 mg tablet 20 mg PO DAILY #90 tabs 02/0804/03/24 Rx metoprolol tartrate 100 mg tablet 100 mg PO BID blood pressure, 04/26/23 04/03/24 Rx heart #180 tabs levothyroxine 25 mcg tablet 25 mcg PO DAILY 07/25/23 0 04/03/24 History magnesium oxide 400 mg (241.3 mg 400 mg PO DAILY 07/2404/03/24 History magnesium) tablet omeprazole 40 mg capsule,delayed 40 mg PO DAILY 04/03/24 History release fenofibrate 54 mg tablet 54 mg PO DAILY #90 tabs 07/1004/03/24 Rx sumatriptan succinate 50 mg tablet See Rx Instructions PO .COMPLEX 08/09/23 Unknown Rx (Imitrex) #10 tabs ondansetron 8 mg disintegrating 8 mg PO Q6H PRN PRN na usea and 09/09/23 04/03/24 History tablet vomiting rosuvastatin 20 mg tablet 20 mg PO QHS 09/09/23 History trazodone 150 mg tablet 150 mg PO QHS 09/09/2304/02 History trazodone 50 mg tablet 50 mg PO QHS 09/09/23 History cyclobenzaprine 10 mg tablet 10 mg PO BID PRN muscle s pasm #180 10/29/23 04/03/24 Rx tabs amlodipine 5 mg tablet 5 mg PO BID #60 tabs 4 04/03/24 Rx buspirone 15 mg tablet 15 mg PO BID 04/03/24 History buspirone 5 mg tablet 5 mg PO BID 04/03/24 Unknown History glimepiride 2 mg tablet 2 mg PO BID #60 tabs 5 Unknown Rx blood sugar diagnostic (FreeStyle #100 ea 04/21/24 Unk nown Rx Lite Strips) blood-glucose meter (FreeStyle #1 ea 04/21/24 Unknown Rx Lite Meter kit) lancets 28 gauge (FreeStyle #200 ea 04/21/24 Unknown R x Lancets) oxycodone-acetaminophen 5 mg-325 1 tab PO Q8H PRN pain 3 days #10 05/04/24 Unknown Rx mg tablet (Percocet) tabs apixaban 5 mg tablet (Eliquis) 5 mg PO BID #180 tabs 0 05/05/24 Unknown Rx bed rail #1 ea 05/06/24 Unknown Rx clonazepam 0.5 mg tablet 0.5 mg PO 4X/DAY 05/12/24 Un known History guaifenesin 100 mg/5 mL oral 400 mg PO Q4H 05/12/24 Un known History liquid (Adult Tussin Chest Congestion) naloxone 4 mg/actuation nasal spray 4 mg intranasal Q3 M PRN opioid 05/12/24 Unknown History overdose Wheelchair with leg rest / lifts #1 ea 06/04/24 Unknow n Rx Allergy/AdvReac Type Severity Reaction Status Date / Time latex Allergy Intermediate skin Verified 06/13/24 18:31 irritation aspirin AdvReac Severe Nausea/Vom/ Verified 06/13/24 18:31 Diarrhea erythromycin base AdvReac Severe Vomiting,di Verified 06/13/24 18:31 (Erythromycin Base) arrhea NSAIDS (Non-Steroidal AdvReac Severe Vomiting,di Verified 06/13/24 18:31 Anti-Inflamma arrhea Family History Daughter Multiple sclerosis Father CAD (coronary artery disease) Heart disease Multiple sclerosis Grandfather Heart disease Uncle Heart disease Aunt No problems noted. Sister Colon cancer Mother Hypertension Surgical History Squamous cell carcinoma History of lumbar fusion History of esophagogastroduodenoscopy (EGD) Status post insertion of spinal cord stimulator History of left heart catheterization (08/17/21) History of colonoscopy Presence of permanent cardiac pacemaker (2013) History of resection of stomach Hx of cholecystectomy History of elbow surgery History of hysterectomy History of appendectomy History of laparotomy history excision neuroendocrine tumor Social History Smoking Status: Current some day smoker tobacco type: cigarettes Tobacco: How many years used: 30 how long ago did patient quit smoking: A few months ago second hand exposure: Yes alcohol intake: never substance use type: does not use caffeine: Yes Type: carbonated beverages Number of servings: 1 and coffee Number of servings: 2 what type of physical activity do you participate in: none ivania/judaism: None seatbelt use: always do you feel safe at home: Yes ROS ROS ED ROS Narrative Review of systems positive for right scapular pain and right thoracic mid back pain. No fevers or chills, no hitting of her head, no loss of consciousness. Pain in right scapular area worse with movement of her right arm. Pain in back also worse with movement. EXAM Physical Exam Narrative Exam Narrative: GCS 15. ABCs are intact. HEENT examination reveals PERRL, EOMI. Neck soft andsupple without vertebral point tenderness or bony step-off. Full range of motion of neck without pain. Cardiovascular examination reveals a regular rate and rhythm. No crepitance, no rib pain. Lungs are clear to auscultation bilaterally. Abdomen soft and nontender. Inspection of the thoracic back does reveal diffuse tenderness in the spinal and paraspinal area of the thoracic back. No step-off noted. Positive tenderness to palpation right scapula, no crepitance. Neurovascularly intact to right upper extremity with palpable radial pulse. Full range of motion of right shoulder. Const Vital Signs: 06/13/24 18:31 Temperature 98.8 F Temperature Source Oral Pulse Rate 68 Respiratory Rate 20 H Blood Pressure 130/90 H Blood Pressure Mean 103 Pulse Ox 97 Oxygen Delivery Method Room Air MDM MDM MDM Narrative Medical decision making narrative: Differential diagnosis includes but not limited to thoracic spine fracture versus contusion versus scapular fracture versus contusion. I have low clinicalsuspicion for shoulder dislocation given her full range of motion. She has an allergy to NSAIDs. She was given 1 oxycodone tablet here as well as 1 Flexeril tablet. I did review her previous EMR and she does have a care plan from approximately 5 years ago, where she has had multiple visits for pain related symptoms. On my individual interpretation of the x-ray of the right scapula, there is no evidence of acute fracture. I reviewed the radiology report which confirms my independent interpretation. I reviewed the radiology report of the CT of the thoracic spine. There is probable chronic fracture of the T8 vertebra given itsheterogenicity. At this point in time, patient had complained to the RN that she was having chest pain. EKG was obtained and interpreted by myself independently as normal sinus rhythm at 66 bpm without ectopy or acute ST changes. No STEMI. I do not feel that she needs laboratory work and she had CTof the cervical spine. Upon repeat examination, she states she is not having chest pain and feels that it is coming more from her back. Given her chronic back pain, she continue her Percocet. She was given 1 dose of intramuscular morphine prior to discharge. She was told that further pain management should come from her pain management doctor Dr. Abernathy. I feel she can be discharged to follow-up. Disposition is discharged home in stable condition. History & Record Review Discussion w/independent historian: Patient Radiography Diagnostic Testing: Clinical Impression(s) from Imaging Studies Scapula X-Ray 06/13/24 18:42 IMPRESSION: NO ACUTE FRACTURE OR DISLOCATION. Reading Location: [facility] Thoracic Spine CT 06/13/24 18:42 IMPRESSION: Heterogeneous appearance of the T8 vertebral body, suspicious for fracture likely chronic. Please correlate clinically. If clinically indicated MRI of the thoracic spine may be helpful for further characterization. Degenerative changes of the thoracic spine. Reading Location: [facility] Discharge Plan Triage Chief Complaint: Back ED Provider: Gigi Barton Dx/Rx/DC Orders Clinical Impression: Fall, Acute thoracic back pain Instructions: ED Back Pain (Acute or Chronic), ED Back Contusion Prescriptions: No Action duloxetine 60 mg capsule,delayed release(DR/EC) 120 mg PO DAILY Rx Instructions: rx by pallative care gabapentin 300 mg capsule 300 mg PO TID Patient Comments: TAKE 1 CAPSULE BY MOUTH THREE TIMES A DAY trazodone 150 mg tablet 150 mg PO QHS Rx Instructions: Take with 50 mg tablet to = 200 mg qhs potassium chloride 20 mEq tablet,ER particles/crystals 20 meq PO DAILY trazodone 50 mg tablet 50 mg PO QHS Rx Instructions: Take with 150 mg tablet to = 200 mg qhs rosuvastatin 20 mg tablet 20 mg PO QHS magnesium oxide 400 mg (241.3 mg magnesium) tablet 400 mg PO DAILY omeprazole 40 mg capsule,delayed release(DR/EC) 40 mg PO DAILY Rx Instructions: TAKE ONE CAPSULE BY MOUTH DAILY FOR STOMACH levothyroxine 25 mcg tablet 25 mcg PO DAILY Rx Instructions: TAKE ONE TABLET BY MOUTH DAILY FOR THYROID ondansetron 8 mg tablet,disintegrating 8 mg PO Q6H PRN PRN (Reason: nausea and vomiting) Rx Instructions: TAKE ONE TABLET BY MOUTH EVERY 6 HOURS NEEDED FOR NAUSEA AND VOMITING buspirone 5 mg tablet 5 mg PO BID buspirone 15 mg tablet 15 mg PO BID oxycodone-acetaminophen [Percocet] 5-325 mg tablet 1 tab PO Q8H PRN (Reason: pain) 3 Days Qty: 10 0RF clonazepam 0.5 mg tablet 0.5 mg PO 4X/DAY Patient Comments: [NO ORIGINAL SIG] naloxone 4 mg/actuation spray,non-aerosol 4 mg intranasal Q3M PRN (Reason: opioid overdose) Rx Instructions: spray 1 dose into ONE nostril; alternate nostrils w each dose until help arrives guaifenesin [Adult Tussin Chest Congestion] 100 mg/5 mL liquid 400 mg PO Q4H isosorbide mononitrate 60 mg tablet extended release 24 hr 60 mg PO QAM Qty: 90 3RF (DME) Ultra-Light Rollator Misc See Rx Instructions .Route Qty: 1 0RF Rx Instructions: As directed Prolia 60 mg/mL syringe 60 mg subcut [id number] Qty: 1 2RF Patient Comments: due for injection lisinopril 20 mg tablet 20 mg PO DAILY Qty: 90 1RF metoprolol tartrate 100 mg tablet 100 mg PO BID Qty: 180 1RF Rx Instructions: TAKE 1 TABLET BY MOUTH TWICE A DAY FOR BLOOD PRESSURE/HEART fenofibrate 54 mg tablet 54 mg PO DAILY Qty: 90 1RF sumatriptan succinate [Imitrex] 50 mg tablet See Rx Instructions PO .COMPLEX Qty: 10 3RF Rx Instructions: take 1 tab at onset of headache; if no relief may repeat 1 tab after at least 2 hrs; max = 4 tabs/24 hr PO cyclobenzaprine 10 mg tablet 10 mg PO BID PRN (Reason: muscle spasm) Qty: 180 1RF amlodipine 5 mg tablet 5 mg PO BID Qty: 60 11RF glimepiride 2 mg tablet 2 mg PO BID Qty: 60 2RF (DME) FreeStyle Lite Strips Strip See Rx Instructions .MEDSUPPLY Qty: 100 3RF Rx Instructions: check blood glucose daily for type 2 DM (DME) blood-glucose meter [FreeStyle Lite Meter] Kit See Rx Instructions .MEDSUPPLY Qty: 1 0RF Rx Instructions: As directed, check blood glucose daily for type 2 DM (DME) lancets [FreeStyle Lancets] 28 gauge misc See Rx Instructions .MEDSUPPLY Qty: 200 3RF Rx Instructions: check blood glucose daily for type 2 DM Eliquis 5 mg tablet 5 mg PO BID Qty: 180 1RF Rx Instructions: Start after completing starter pack (DME) bed rail See Rx Instructions .Route .MEDSUPPLY Qty: 1 0RF Rx Instructions: As directed (DME) Wheelchair with leg rest / lifts See Rx Instructions .Route .MEDSUPPLY Qty: 1 0RF Rx Instructions: For daily use / mobility purposes Primary Care Provider: Charla Wadsworth Referrals: Charla Wadsworth MD [Primary Care Provider] - Mainor Abernathy MD [Med Staff - Active Staff] - As soon as possible Activity Restrictions/Additional Instructions: Continue your Percocet as directed for pain. Follow-up with your pain management physician as soon as possible. Print Language: Kosovan Disposition Disposition: Home, Self Care What to do if you have Problems For any increased pain, shortness of breath, bleeding, nausea or vomiting, chestpain, or any unexpected problems, contact your Primary Care Provider. Call [facility] ([phone]) or report to the closest Emergency Room. Call 911 if necessary. 06/13/241935 <Electronically signed by Gigi Barton MD> Cosigner Signature (if applicable): CC: Dr. Charla Wadsworth MD ~ Signed [facility] Work Phone: 1(160) 655-237504-03-2025 Evaluation note* Diagnosis Onset Date Resolution Status Admit Date Presence of permanent cardia c pacemaker 2013 chronic June 11, 2024 9:29am Sick sinus syndrome chronic June 11, 2024 9:29am Chest pain acute June 11 9:31am Dizziness acute June 11 9:31am DENNISON (dyspnea on exertion) acute June 11, 2024 9:31am Fatigue acute June 11 9:31am Atherosclerotic heart diseas e of [place] coronary artery without angina pectoris chronic June 11, 2024 9:31am Essential (primary) hypertension chr onic June 11, 2024 9:31am Hyperlipidemia chronic June 11, 2024 9:31am Presence of permanent cardia c pacemaker 2013June 11, 2024 9:31am Hypersomnolence acute July 22, 2024 9:32am Ambulatory dysfunction chronic y 2024 9:32am Anxiety and depression chronic Ma y 2024 9:32am Chronic lower back pain chronic M ay 2024 9:32am Hypertension chronic July 22 9:32am Type 2 diabetes mellitus chronic July 22, 2024 9:32am [place] [employer] Work Phone: 1(669) 913-743603-13-2025 Radiology Diagnostic study [facility]01-26-2025 [facility]01-24-2025 Evaluation note* Diagnosis Onset Date Resolution Status Admit Date Acute exacerbation of chroni c obstructive pulmonary disease resolved Ja 2024 6:10pm Hypoxia resolved April 03, 2024 6:10pm Blood glucose elevated acute 2024 9:34am Dark urine acute April 20, 2024 9:34am COPD (chronic obstructive pulmonary disease) chronic April 9:34am Essential (primary) hypertension chronic April 20, 2 025 9:34am Hyperlipidemia chronic April 112024 9:34am Dental caries inactive April 202024 9:34am Presence of permanent cardia c pacemaker 2013June 11, 2024 9:29am Sick sinus syndrome chronic June 11, 2024 9:29am Chest pain acute June 11 9:31am Dizziness acute June 11 9:31am DENNISON (dyspnea on exertion) acute June 11, 2024 9:31am Fatigue acute June 11 9:31am Atherosclerotic heart diseas e of [place] coronary artery without angina pectoris chronic June 9:31am Essential (primary) hypertension chronic June 11, 2024 9:31am Hyperlipidemia June 11, 2024 9:31am Presence of permanent cardia c pacemaker 2013June 11, 2024 9:31am [facility] Work Phone: 1(992) 134-867401-24-2025 Evaluation note* Diagnosis Onset Date Resolution Status Admit Date Acute exacerbation of chroni c obstructive pulmonary disease resolved Ja [id number] 6:10pm Hypoxia resolved April 03, 2024 6:10pm Blood glucose elevated acute Fe 2024 9:34am Dark urine acute April 20, 2024 9:34am COPD (chronic obstructive pulmonary disease) chronic April 9:34am Essential (primary) hypertension chronic April 20 9:34am Hyperlipidemia chronic April 112024 9:34am Dental caries inactive April 202024 9:34am Presence of permanent cardia c pacemaker 2013June 11, 2024 9:29am Sick sinus syndrome chronic June 11, 2024 9:29am Chest pain acute June 11 9:31am Dizziness acute June 11 9:31am DENNISON (dyspnea on exertion) acute June 11, 2024 9:31am Fatigue acute June 11 9:31am Atherosclerotic heart diseas e of [place] coronary artery without angina pectoris chronic June 9:31am Essential (primary) hypertension chronic June 11, 2024 9:31am Hyperlipidemia chronic June 11, 2024 9:31am Presence of permanent cardia c pacemaker 2013June 11, 2024 9:31am Hypersomnolence acute July 22, 2024 9:32am Ambulatory dysfunction chronic 2024 9:32am Anxiety and depression chronic 2024 9:32am Chronic lower back pain chronic M 2024 9:32am Hypertension chronic July 22 9:32am Type 2 diabetes mellitus chronic July 22, 2024 9:32am [facility] Work Phone: 1(705) 649-826711-18-2024 Evaluation note* Diagnosis Onset Date Resolution Status Admit Date Chest pain acute January 27, 2024 10:38am UTI (urinary tract infection) acute January 27, 2024 10:38am Anxiety and depression chronic No vember 2023 10:38am Essential (primary) hypertension chronic January 26, 2 024 10:38am Acute exacerbation of chroni c obstructive pulmonary disease resolved Ja [id number] 6:10pm Hypoxia resolved April 03, 2024 6:10pm Blood glucose elevated acute Fe [id number] 9:34am Dark urine acute April 20, 2024 9:34am COPD (chronic obstructive pulmonary disease) chronic April 9:34am Essential (primary) hypertension chronic April 20 025 9:34am Hyperlipidemia chronic April 112024 9:34am Dental caries inactive April 202024 9:34am [facility] Work Phone: 1(793) 114-910009-23-2024 [facility]09-20-2024 [facility]09-25-2023 Discharge summary Author Keon Ramirez [facility] December 03, 2022 11:32pm Note Date/Time December 03, 2022 6:47pm [facility] Medical Records Department [address] [place] [address] Emergency Department Summary 12/03/22 MR#: [id number] Acct: [id number] Name: RAMSES BRADSHAW Rep #:[id number] : 1965 57 From: [place] PCP: Dr. Charla Wadsworth MD Status:R EG ER Location: ED HPI History of Present Illness Chief Complaint: Chest Pain Informant: patient Onset/Context/Timing Onset: Today Activity at onset: sudden Timing: Intermittent and Lasts (Approximately 20 minutes) Quality: Positive for Dull Location: Substernal Worsened By: Nothing Relieved By: Nothing Associated Symptoms: Positive for Nausea, Lightheadedness and Palpitations; Negative for Vomiting, Diaphoresis, Dyspnea, Cough, Fever or Acid Reflux Narrative Narrative: Patient presents with chest pain that began today. Patient states it began rather suddenly. Patient states that it came on while she was at rest. Patientstates it has been intermittent. Patient states she has had 4 episodes of chestpain since this afternoon. Patient states it last for approximately 20 minutes and then resolved. Patient states it is over the substernal and parasternal areas. Patient states it radiates into her jaw and neck. Patient states nothing makes it worse and nothing makes it better. Patient admits to some nausea but denies any vomiting. Patient admits to some lightheadedness and palpitations. Patient denies any shortness of breath or cough. Patient denies any diaphoresis. Patient is a smoker. Patient denies any other cardiovascular riskfactors. CVD Risk Factors: Positive for Hypertension, Hypercholesterolemia and Smoking; Negative for Diabetes or Family History 1' </=55 PE Risk Factors: Positive for Cancer; Negative for Recent Travel/Surgery, RecentImmobilization, Prior DVT or PE or OCP + Smoking + >/=35 PFSH PFSH Medical History Abdominal pain Anemia Anxiety and depression Atherosclerotic heart disease of [place] coronary artery without angina pectoris Bacteria in urine Bone fracture CHI (closed head injury) Chronic lower back pain Chronic pain syndrome COPD (chronic obstructive pulmonary disease) Diarrhea Encephalopathy Encounter for screening for malignant neoplasm of lung in current smoker with 30pack year history or greater Essential (primary) hypertension Familial combined hyperlipidemia Gabapentin overdose GERD (gastroesophageal reflux disease) Greater trochanteric bursitis of left hip Health care maintenance Health care maintenance Heart murmur History of pneumonia Hyperlipidemia Hypothyroidism Infected dental carries Intermittent palpitations Leukocytosis Low back strain Monomorphic ventricular tachycardia Muscle spasm Neuroendocrine neoplasm of stomach Neuropathy Obesity Obstructive sleep apnea ELOY (obstructive sleep apnea) Osteoarthritis Pain of left thumb Polycythemia Polypharmacy Primary malignant neuroendocrine tumor of stomach PTSD (post-traumatic stress disorder) Sacral contusion Sick sinus syndrome Sinus pause Tobacco dependence syndrome Tobacco use disorder, continuous Vitamin D deficiency Home Medications diclofenac sodium 1 % topical gel 4 g topical ONCE PRN joint pain #100 grams 08/05/20 [Rx Last Taken Unknown] lorazepam 1 mg tablet 1 mg PO TID PRN Anxiety 10/25/21 [History Last Taken Unknown] potassium chloride 20 mEq tablet,extended release(part/cryst) 20 meq PO DAILY #90 tabs 05/07/22 [Rx Last Taken Unknown] buprenorphine 10 mcg/hour weekly transdermal patch 1 patch transdermal QWEEK 05/16/22 [History Last Taken Unknown] buspirone 7.5 mg tablet 7.5 mg PO TID 05/16/22 [History Last Taken Unknown] duloxetine 60 mg capsule,delayed release 120 mg PO DAILY 05/16/22 [History Last Taken Unknown] gabapentin 300 mg capsule 300 mg PO TID 05/16/22 [History Last Taken Unknown] tizanidine 4 mg tablet 4 mg PO TID PRN 05/16/22 [History Last Taken Unknown] trazodone 150 mg tablet 150 mg PO QHS 05/16/22 [History Last Taken Unknown] isosorbide mononitrate 60 mg tablet,extended release 24 hr 60 mg PO QAM #90 tabs06/13/22 [Rx Last Taken Unknown] levothyroxine 25 mcg tablet See Rx Instructions .Route .COMPLEX #90 tabs 06/13/22 [Rx Last Taken Unknown] omeprazole 40 mg capsule,delayed release See Rx Instructions .Route .COMPLEX #90caps 06/13/22 [Rx Last Taken Unknown] rosuvastatin 10 mg tablet See Rx Instructions .Route .COMPLEX #90 tabs 06/13/22 [Rx Last Taken Unknown] hydrochlorothiazide 12.5 mg tablet 12.5 mg PO DAILY #90 tabs 07/10/22 [Rx Last Taken Unknown] lisinopril 20 mg tablet 20 mg PO DAILY #90 tabs 08/28/22 [Rx Last Taken Unknown] ondansetron 8 mg disintegrating tablet See Rx Instructions .Route .COMPLEX #60 tabs 10/04/22 [Rx Last Taken Unknown] walker (Ultra-Light Rollator misc) #1 ea 10/17/22 [Rx Last Taken Unknown] metoprolol tartrate 100 mg tablet 100 mg PO BID blood pressure, heart #180 tabs 10/28/22 [Rx Last Taken Unknown] amlodipine 5 mg tablet See Rx Instructions .Route .COMPLEX #90 tabs 12/03/22 [Rx Last Taken Unknown] Allergy/AdvReac Type Severity Reaction Status Date / Time latex Allergy Intermediate skin Verified 12/03/22 16:27 irritation aspirin AdvReac Severe Nausea/Vom/ Verified 12/03/22 16:27 Diarrhea erythromycin base AdvReac Severe Vomiting,di Verified 12/03/22 16:27 [Erythromycin Base] arrhea NSAIDS (Non-Steroidal AdvReac Severe Vomiting,di Verified 12/03/22 16:27 Anti-Inflamma arrhea Family History Daughter Multiple sclerosis Father CAD (coronary artery disease) Heart disease Multiple sclerosis Grandfather Heart disease Uncle Heart disease Aunt No problems noted. Sister Colon cancer Mother Hypertension Surgical History history excision neuroendocrine tumor History of appendectomy History of back surgery History of colonoscopy History of elbow surgery History of hysterectomy History of laparotomy History of left heart catheterization (08/17/21) History of resection of stomach Hx of cholecystectomy Presence of permanent cardiac pacemaker (2013) Social History Smoking Status: Current some day smoker tobacco type: cigarettes Tobacco: How many years used: 30 second hand exposure: Yes quit status: has quit before alcohol intake: never substance use type: does not use what type of physical activity do you participate in: none ivania/judaism: None seatbelt use: always do you feel safe at home: Yes ROS ROS ED Constitutional Constitutional ED: Denies chills or fever(s) Eyes Eyes: Denies blurry vision or change in vision ENT ENT ED: Denies rhinorrhea or sore throat Cardiovascular Cardiovascular: Reports chest pain and palpitations Respiratory/Chest Respiratory/Chest: Denies cough or dyspnea Gastrointestinal Gastrointestinal: Reports nausea; Denies abdominal pain or vomiting Genitourinary Genitourinary ED: Denies dysuria or hematuria Musculoskeletal Musculoskeletal: Reports back pain and neck pain Integumentary Denies abscess or rash Neurologic Neurologic: Reports headache(s); Denies weakness Allergic/Immunologic Allergic/Immunologic ED: Denies mouth swelling or urticaria EXAM Physical Exam Const Vital Signs: 12/03/22 16:27 12/03/22 18:18 Temperature 97.6 F L Temperature Source Temporal Pulse Rate 53 L Respiratory Rate 14 Blood Pressure 132/75 H Blood Pressure Mean 94 Pulse Ox 98 Oxygen Delivery Method Room Air Room Air Positive well nourished, well developed and obese General Appearance ED: well developed Nutritional Appearance: obese HEENT normocephalic and atraumatic Eyes PERRL and EOMs intact bilaterally Neck supple and no JVD Chest Wall palpation of chest normal Resp normal respiratory effort and clear to auscultation bilaterally Effort and Inspection: Negative for respiratory distress Cardio regular rate and regular rhythm GI normal to inspection, nondistended, normoactive bowel sounds, soft to palpation,non-tender and non-distended Extremity normal to inspection General Extremety ED: Negative for edema or tenderness General Extremity: Negative for edema Neuro oriented x3, CN's II-XII intact bilaterally and no sensory deficits noted Sensorium / Orientation: awake and alert Motor Exam: strength 5/5 throughout Psych mental status grossly normal Heart Score History: Slightly/Non-Suspicious ECG: Normal Age: >45 - <65 years Risk Factors: >/= 3 Risk Factors or History of CAD Score: 3 MDM MDM MDM Narrative Medical decision making narrative: Differential diagnosis includes cardiac dysrhythmia, cardiac ischemia, pneumonia, pneumothorax, pulmonary embolism, GERD, musculoskeletal pain, and anxiety. EKG will be obtained to assess for cardiac dysrhythmia and cardiac ischemia. Chest x-ray will be obtained to assess for pneumonia and pneumothorax. CBC will be obtained to assess for leukocytosis and anemia. Basic metabolic profile will be obtained to assess for electrolyte abnormality and renal function. High-sensitivity troponin will be obtained to assess for cardiac ischemia. 2-hour repeat high-sensitivity troponin will be obtained to assess for ongoing cardiac ischemia. D-dimer will be obtained to assess for pulmonary embolism. Lab Data Attestation: I reviewed the patient's lab results. Lab results narrative: CBC was reviewed. There is a mild leukocytosis of 13.0. The remainder is within normal limits. Basic metabolic profile was reviewed. Creatinine was slightly elevated at 1.22. D-dimer was reviewed and was elevated at 0.79. Initialhigh-sensitivity troponin was reviewed and was normal at 6. 2-hour repeat high-sensitivity troponin was reviewed and was normal at 4. Labs: Laboratory Results - last 24 hr 12/03/22 12/03/22 16:45 19:44 WBC 13.0 H RBC 4.75 Hgb 13.7 Hct 41.4 MCV 87.2 MCH 28.8 MCHC 33.1 RDW Std Deviation 44.3 H RDW Coeff of Ross 13.7 Plt Count 354 MPV 9.5 Immature Gran % (Auto) 0.400 Neut % (Auto) 64.1 Lymph % (Auto) 28.0 [place] % (Auto) 5.7 Eos % (Auto) 1.5 Baso % (Auto) 0.3 Absolute Neuts (auto) 8.4 H Absolute Lymphs (auto) 3.65 Nucleated RBC % 0 D-Dimer Quant (PE/DVT) 0.79 H* Sodium 137 Potassium 4.3 Chloride 103 Carbon Dioxide 28.0 Anion Gap 6 BUN 15 Creatinine 1.22 H Estim Creat Clear Calc 40.24 Est GFR (MDRD) Af Amer 58 L Est GFR (MDRD) Non-Af 48 L BUN/Creatinine Ratio 12.3 Glucose 89 Calcium 9.3 Troponin I High Sens 6 4 Radiography Chest X-Ray - ED: 1 View, Read by ED Physician, Read by Radiologist and No AcuteDisease Diagnostic Testing: Clinical Impression(s) from Imaging Studies Chest X-Ray 12/03/22 18:23 IMPRESSION: 1. Transvenous pacer leads without change. The RIGHT atrial lead is downward projecting and may not be completely engaged within the RIGHT atrial appendage however no interval change. 2. No evidence of acute cardiac pulmonary process. Electronically Signed: Sergio Gibson MD at 18:52 EDT , Chest CTA 12/03/22 21:26 IMPRESSION: Normal CTA chest examination, without a demonstrated pulmonary embolism or arterial dissection. Electronically Signed: Sergio Damon MD at 23:06 EDT , EKG Initial EKG: Attestation: I personally reviewed and interpreted this EKG as follows: Interpretation: No Acute Injury Pattern and Paced (Atrial paced rhythm with a rate of 60) Comments: EKG was obtained. On my independent interpretation, it shows anatrial paced rhythm with a rate of 60. OR interval was 212 ms. QRS interval was normal at 80 ms. QTc interval was normal at 452 ms. [place] was normal at 35. There are no acute ST or T wave changes noted. Prior EKG tracings: available for review Prior: Unchanged (10/23/2021) Treatment and Re-Evaluation :: Patient was advised of her findings. Patient was feeling better on reevaluation. Patient has a HEART score of 3. Patient was advised that this islow risk for acute cardiac event. Patient was instructed to follow-up with her primary care physician in 5 to 7 days. Patient understood and was agreeable with the plan. All questions were answered. Discharge Plan Triage Chief Complaint: Chest Pain ED Provider: Keon Ramirez Dx/Rx/DC Orders Clinical Impression: Essential (primary) hypertension, Tobacco use disorder, continuous, Chest pain Instructions: ED Chest Pain, Uncertain Cause Prescriptions: No Action duloxetine 60 mg capsule,delayed release(DR/EC) 120 mg PO DAILY Rx Instructions: rx by pallative care lisinopril 20 mg tablet 20 mg PO DAILY Qty: 90 1RF tizanidine 4 mg tablet 4 mg PO TID PRN trazodone 150 mg tablet 150 mg PO QHS Patient Comments: TAKE 1 TABLET BY MOUTH EVERYDAY AT BEDTIME gabapentin 300 mg capsule 300 mg PO TID Patient Comments: TAKE 1 CAPSULE BY MOUTH THREE TIMES A DAY buspirone 7.5 mg tablet 7.5 mg PO TID Patient Comments: TAKE 1 TABLET BY MOUTH THREE TIMES A DAY buprenorphine 10 mcg/hour patch weekly 1 patch transdermal QWEEK lorazepam 1 mg tablet 1 mg PO TID PRN (Reason: Anxiety) Patient Comments: TAKE 1 TABLET BY ORAL ROUTE UP TO 3 TIMES A DAY NEEDED FOR ANXIETY diclofenac sodium 1 % gel 4 g topical ONCE MDD 32g/day total PRN (Reason: joint pain) Qty: 100 1RF Rx Instructions: apply to single knee, ankle, foot; for foot includes sole/toes/top of foot potassium chloride 20 mEq tablet,ER particles/crystals 20 meq PO DAILY Qty: 90 2RF levothyroxine 25 mcg tablet See Rx Instructions .ROUTE .COMPLEX Qty: 90 1RF Dose Instruction: TAKE ONE TABLET BY MOUTH DAILY FOR THYROID Rx Instructions: TAKE ONE TABLET BY MOUTH DAILY FOR THYROID omeprazole 40 mg capsule,delayed release(DR/EC) See Rx Instructions .ROUTE .COMPLEX Qty: 90 1RF Dose Instruction: TAKE ONE CAPSULE BY MOUTH DAILY FOR STOMACH Rx Instructions: TAKE ONE CAPSULE BY MOUTH DAILY FOR STOMACH rosuvastatin 10 mg tablet See Rx Instructions .ROUTE .COMPLEX Qty: 90 1RF Dose Instruction: TAKE ONE TABLET BY MOUTH DAILY Rx Instructions: TAKE ONE TABLET BY MOUTH DAILY isosorbide mononitrate 60 mg tablet extended release 24 hr 60 mg PO QAM Qty: 90 3RF hydrochlorothiazide 12.5 mg tablet 12.5 mg PO DAILY Qty: 90 1RF ondansetron 8 mg tablet,disintegrating See Rx Instructions .ROUTE .COMPLEX Qty: 60 1RF Dose Instruction: TAKE ONE TABLET BY MOUTH EVERY 8 HOURS NEEDED FOR NAUSEA AND VOMITING Rx Instructions: TAKE ONE TABLET BY MOUTH EVERY 8 HOURS NEEDED FOR NAUSEA AND VOMITING (DME) Ultra-Light Rollator Misc See Rx Instructions .Route Qty: 1 0RF Rx Instructions: As directed metoprolol tartrate 100 mg tablet 100 mg PO BID Qty: 180 1RF Rx Instructions: TAKE 1 TABLET BY MOUTH TWICE A DAY FOR BLOOD PRESSURE/HEART amlodipine 5 mg tablet See Rx Instructions .ROUTE .COMPLEX Qty: 90 1RF Dose Instruction: TAKE ONE TABLET BY MOUTH DAILY Rx Instructions: TAKE ONE TABLET BY MOUTH DAILY Primary Care Provider: Charla Wadsworth Referrals: Charla Wadsworth MD [Primary Care Provider] - 5-7 Days Disposition Disposition: Home, Self Care What to do if you have Problems For any increased pain, shortness of breath, bleeding, nausea or vomiting, chestpain, or any unexpected problems, contact your Primary Care Provider. Call [facility] ([phone]) or report to the closest Emergency Room. Call 911 if necessary. 12/03/22 2332 <Electronically signed by Keon Ramirez DO> Cosigner Signature (if applicable): CC: Dr. Charla Wadsworth MD ~ Signed [facility] Work Phone: [phone] 167-514308-02-2021 [facility] PH[facility]ICAL NAME ACCOUNT SEX AGE ADMIT DISCHARGE PT MED. RECORD# NUMBER DATE DATE TYPE LEEANN [id number] F 55 09/22/20 2 RAMSES Rodríguez [id number] ROOM: [id number] DATE OF : 65 DICTATING PHYSICIAN: Nataly Vasquez HISTORY & PHYSICAL/DISCHARGE SUMMARY ADMITTING DIAGNOSIS: Chest pain. FINAL DIAGNOSES: 1. Fall without significant injuries. 2. Chest pain with tenderness on the right side of the chest compatible with musculoskeletal chest pain. 3. Borderline stress test on the imaging without symptoms of undetermined significance. The patient did have a cardiac catheterization and follow-up with Cardiology. She was instructed to follow up with Cardiology after discharge. CHIEF COMPLAINT: Chest pain. HISTORY OF PRESENT ILLNESS: This is a 55-year-old lady with a history of hypertension who is followed by Cardiology. The patient was in her usual state of health. She presented to the Emergency Room due to a fall. Her fall was somewhat a mixture of an accident. She states her legs gave out from under her. On presentation to the Emergency Room, she mentioned about having some chest pain. The chest pain was mostly on the right side. It was persistent and dull in nature. She was admitted for that. When I interviewed her, she continued to have the same pain with no significant changes. No relation to exertion or activity. She does not recall hitting her chest, but according to her she does have some neck problems. She denies any shortness of breath, diaphoresis, or nausea. PAST MEDICAL HISTORY: (1) Hypertension. (2) Anxiety disorder. (3) Acid reflux disease. (4) History of syncope in the past. (5) Insomnia. (6) Chronic pain syndrome. (7) Obstructive sleep apnea. (8) Noncompliance with CPAP. PAST SURGICAL HISTORY: Neuroendocrine tumor removal from the stomach. (2) Back surgery. (3) Hysterectomy. (4) Ulnar nerve surgery. (5) Pacemaker placement. (6) Cardiac catheterization multiple times, most recent in 2019. CURRENT MEDICATIONS: The patient is currently on: (1) Amlodipine 5 mg daily. (2) Buspirone 5 mg twice daily. (3) Duloxetine 120 mg daily. (4) Haloperidol 0.5 mg every 6 hours as needed. (5) Isosorbide mononitrate 30 mg daily. (6) Levothyroxine 25 mg daily. (7) Lisinopril 40 mg daily. (8) Lorazepam 1 mg twice daily. (9) Lisinopril 40 mg daily. (10) Methocarbamol 750 mg twice a day as needed. (11) Metoprolol tartrate 100 Page 1 of 4 RAMSES BRADSHAW History & Physical RAMSES BRADSHAW :1965 mg twice a day. (12) Omeprazole 40 mg daily. (13) Rosuvastatin 10 mg daily. (14) Tramadol 50 mg one as needed. (15) Tylenol 325 mg two every 6 hours as needed. (16) Zolpidem 10 mg daily. ALLERGIES: The patient is allergic to NSAIDs, erythromycin, and Augmentin. FAMILY HISTORY: Mother is okay. Father from complications of multiple sclerosis. SOCIAL HISTORY: The patient lives at home. She does not drink alcohol. She is a long-term smoker. REVIEW OF SYSTEMS: The patient denied fever, chills, or night sweats. No weight loss or gain. No headache, blurry vision, earache or sore throat. No neck pain. Chest pain as described above. No shortness of breath. No cough. No nausea, vomiting, abdominal pain, diarrhea, or occasional constipation. No difficulty with urination, increased frequency or burning. No skin rashes. PHYSICAL EXAMINATION: GENERAL APPEARANCE: This is a 55-year-old lady who appeared to be comfortable at the time I saw her. VITAL SIGNS: She is afebrile. Blood pressure is 119/73, respirations 16, and heart rate 78. HEENT: Normocephalic, atraumatic. Pupils are round, equal and reactive. Tongue to midline. NECK: The neck was supple. LUNGS: Lungs are clear bilaterally. HEART: The heart was regular. No gallop or murmurs. ABDOMEN: Soft. No tenderness. EXTREMITIES: Extremities reveal no edema, cyanosis or clubbing. DIAGNOSTIC DATA: Laboratory data has revealed an elevated white count at 13.7. No significant other abnormality. She does have a mild shift. Creatinine was 1.34. BUN was 20. Sodium was 137. Potassium was 3.6. IMPRESSIONS: 1. Atypical chest pain, most likely musculoskeletal. The patient does appear to have multiple evaluations in the past, including cardiac catheterization. Page 2 of 4 RAMSES BRADSHAW History & Physical RAMSES BRADSHAW :1965 2. Hypertension. 3. Hypercholesterolemia. 4. Chronic tobaccoism. 5. Anxiety and depression. PLAN: Admit the patient and rule out with serial troponins, stress testing, and echocardiogram. Continue aspirin, beta blockers, ARBs, and statins. She will continue on PPIs. PROCEDURES: Stress test and an echocardiogram. HOSPITAL COURSE: The patient was admitted and evaluated for chest pain. Troponins remained negative. EKG remained insignificant. The patient underwent stress testing. Stress testing did reveal an inde (more content not included)... [facility] Diagnosis Onset Date Resolution Status Monomorphic ventricular tachycardia chronic Sick sinus syndrome chronic Presence of permanent cardiac pacemaker 2013 resolved Chest pain acute Atherosclerotic heart diseas e of [place] coronary artery without angina pectoris chronic Essential (primary) hypertension chronic Hyperlipidemia chronic Presence of permanent cardiac pacemaker [address] [facility] Work Phone: Evaluation note* Diagnosis Onset Date Resolution Status Chest pain acute Atherosclerotic heart diseas e of [place] coronary artery without angina pectoris chronic Essential (primary) hypertension chronic Hyperlipidemia chronic Presence of permanent cardiac pacemaker [address] [facility] Work Phone: Evaluation note* Diagnosis Onset Date Resolution Status Encephalopathy acute resolve d Encephalopathy acute Polypharmacy acute Essential (primary) hypertension chronic [facility] Work Phone: Evaluation note* Diagnosis Onset Date Resolution Status Encephalopathy acute resolve d Encephalopathy acute Polypharmacy acute Essential (primary) hypertension chronic [id number] acute Tobacco use disorder, continuous acute Primary malignant neuroendocrine tumor of stomach chronic 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 Work Phone: Evaluation note* Diagnosis Onset Date Resolution Status Monomorphic ventricular tachycardia chronic Sick sinus syndrome chronic Presence of permanent cardiac pacemaker 2013 resolved Atherosclerotic heart diseas e of [place] coronary artery without angina pectoris chronic Essential (primary) hypertension chronic Hyperlipidemia chronic Presence of permanent cardiac pacemaker [address] [facility] Work Phone: Evaluation note* Diagnosis Onset Date Resolution Status COPD (chronic obstructive pulmonary disease) chronic Debility chronic Essential (primary) hypertension chronic Hypothyroidism chronic Lumbar radiculopathy chronic [facility] Work Phone: Evaluation note* Diagnosis Onset Date Resolution Status COPD (chronic obstructive pulmonary disease) chronic Debility chronic Essential (primary) hypertension chronic Hypothyroidism chronic Lumbar radiculopathy chronic Sick sinus syndrome chronic Presence of permanent cardiac pacemaker 2013 resolved Atherosclerotic heart diseas e of [place] coronary artery without angina pectoris chronic Essential (primary) hypertension chronic Hyperlipidemia chronic Presence of permanent cardiac pacemaker 2013 resolved Encounter for examination fo r admission to assisted living facility acute Osteopenia 2022 acute Polypharmacy acute COPD (chronic obstructive pulmonary disease) chronic Essential (primary) hypertension chronic Hyperlipidemia chronic Lumbar radiculopathy chronic ELOY (obstructive sleep apnea) chronic [facility] Work Phone: Evaluation note* Diagnosis Onset Date Resolution Status Encounter for examination fo r admission to assisted living facility acute Osteopenia 2022 acute Polypharmacy acute COPD (chronic obstructive pulmonary disease) chronic Essential (primary) hypertension chronic Hyperlipidemia chronic Lumbar radiculopathy chronic ELOY (obstructive sleep apnea) chronic [facility] Work Phone: Evaluation note* Diagnosis Spinal stenosis of cervical region- Primary Spinal stenosis in cervical region Thoracic myelopathy Spondylosis with myelopathy, thoracic region [facility] Thoracic myelopathy- Primary Spondylosis with myelopathy, thoracic region Spinal stenosis of cervical region Spinal stenosis in cervical region [facility] Diagnosis Spinal stenosis of cervical region Spinal stenosis in cervical region Thoracic myelopathy Spondylosis with myelopathy, thoracic region documented [facility] Diagnosis Weakness of both lower extremities- Primary Obesity, Class III, BMI 40-49.9 (morbid obesity) Morbid obesity [facility]* Dermatology Location: None Selected * Orthopedics Location: None Selected [facility] Work Phone: Hospital Discharge instructions Additional Instructions Left hip x-ray negative. Continue using your walker, pain medications per your pain doctors. Follow-up with Dr. Alexander. Return if any worsening symptoms.[facility] Work Phone: Hospital Discharge instructions Additional Instructions Your x-ray does not show any acute fracture or dislocation. Wear the Grecia wrap. Try to elevate. Take Tylenol for pain at home. Please follow-up with orthopedics and pain management.[facility] Work Phone: Hospital Discharge instructions Additional Instructions Your workup today shows your pacemaker is functioning properly and that there is no signs of physical damage to it. X-ray also shows no sign of rib fracture or hole in the lung and there has been no findings of active heart damage. Therefore continue all of your home medications as directed by your doctor and follow-up with your doctor/melter clerk [facility] Work [facility]: Hospital Discharge instructions Additional Instructions Your ultrasound/venous duplex did not show any signs of blood clot in your right or left leg. Continue your Eliquis as directed by your doctor because of the blood clot in your left arm and return to the ER should you have any further [facility]WM[facility] Work Phone: Hospital Discharge instructions Additional Instructions Continue your Percocet as directed for pain. Follow-up with your pain management physician as soon as possible.[facility] Work Phone: Hospital Discharge instructions Additional Instructions Thank you for trusting us with your care today! Your labs images were reassuring. No sign of urinary retention. No sign of worsening kidney function. Please take Tylenol (2 pills, 650 mg), ibuprofen (2 pills, 400 mg) every 6 hours as needed for pain and fever control. Please return to the emergency department if your symptoms change or worsen. Please follow with your primary care physician for further outpatient evaluation and management.[facility] Work Phone: Reason for referral (narrative)No reason for referral information availableChildren[facility] Work Phone: Reaoiu for visit Narrative* MRI/CT (Urgent) - Closed Specialty Diagnoses / Procedures Referred By Caryn farrell Referred To Contact [facility] Diagnoses Thoracic myelopathy Procedures MRI THORACIC SPINE WO IVCON MRI SPINAL CANAL THORACIC W/O CONTRAST Butch Loja MD [address] [place] [address] [place] [id number] Phone: tel: fax: [place] [id number] Referral ID Status Reason Start Date Expiration Date V isits Requested Visits Authorized [id number] Closed Auto-Generate d Referral 07/20/2024 2025 1 1 [facility] Summary Purpose Family History No Family History Records Found Relationship Condition Age at Onset Recorded Date/T silvia daughter Multiple sclerosis Unknown father Coronary artery disease Unknown Cardiac disease Unknown Multiple sclerosis Unknown grandfather Cardiac disease Unknown uncle Cardiac disease Unknown sister Malignant neoplasm of colon Unknown mother Hypertension Unknown Advance Directives No Advanced Directives Records FoundDocuments on File Type Date Recorded 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 Power of Reed Man Advance Directive Response Recorded Date/ Time Advance Directives No August 17 2 11:41am Living Will No August 17, 2021 1 1:41am Power of Reed Man No August 17, 2021 11:41am Advance Directive Response Recorded Date/ Time Advance Directives No August 17 2 11:41am Living Will No October 22 2 4:33pm Power of Reed Man No October 22, 2 022 4:33pm Advance Directive Response Recorded Date/ Time Advance Directives No August 17 2 10:41am Living Will No October 23 2 1:55pm Power of Reed Man No October 23 022 1:55pm Advance Directive Response Recorded Date/ Time Advance Directives No August 17 2 11:41am Living Will No November 13, 023 10:33pm Power of Reed Man No November 13, 2022 10:33pm Advance Directive Response Recorded Date/ Time Advance Directives No August 17 2 11:41am Living Will No November 15 023 2:06pm Power of Reed Man No November 15, 2022 2:06pm Advance Directive Response Recorded Date/ Time Advance Directives No August 17 2 11:41am Living Will No November 24, 2022 8:43pm Power of Reed Man No November 8:43pm Advance Directive Response Recorded Date/ Time Advance Directives No August 17 11:41am Living Will No December 03, 2022 4:26pm Power of Reed Man No November 4:26pm Advance Directive Response Recorded Date/ Time Advance Directives No August 17 10:41am Living Will No December 03, 2022 3:26pm Power of Reed Man No November 3:26pm Advance Directive Response Recorded Date/ Time Advance Directives No August 17 11:41am Living Will No May 24, 2023 8:18pm Power of Reed Man No May 23 8:18pm Advance Directive Response Recorded Date/ Time Advance Directives No August 17 11:41am Living Will No July 12, 2023 12 :38am Power of Reed Man No July 12, 2023 12:38am Advance Directive Response Recorded Date/ Time Living Will No October 20 2:47pm Power of Reed Man No October 20, 2 024 2:47pm Living Will No April 15 8:44pm Power of Reed Man No April 15, 2024 8:44pm Living Will No May 21, 2024 9:47pm Power of Reed Man No May 21 9:47pm Living Will No April 03 7:49pm Power of Reed Man No April 03, 2024 7:49pm Living Will No May 04, 2 025 4:11pm Power of Reed Man No May 04, 2024 4:11pm Living Will No May 12, 2024 10:08pm Power of Reed Man No May 12 10:08pm Advance Directives No October 21, 2023 2:47pm Advance Directive Response Recorded Date/ Time Living Will No April 15 8:44pm Do you have a Healthcare Power of Reed Man? No April 15, 2024 8:44pm Living Will No May 21, 2024 9:47pm Do you have a Healthcare Power of Reed Man? No May 21, 2024 9:47pm Living Will No June 13, 2024 6:35pm Do you have a Healthcare Power of Reed Man? No June 13, 2024 6:35pm Living Will No April 03 7:49pm Do you have a Healthcare Power of Reed Man? No April 03, 2024 7:49pm Living Will No May 04, 2 025 4:11pm Do you have a Healthcare Power of Reed Man? No May 04, 2024 4:11pm Living Will No May 12, 2024 10:08pm Do you have a Healthcare Power of Reed Man? No May 12, 2024 10:08pm Advance Directives No October 21, 2023 2:47pm Advance Directive Response Recorded Date/ Time Living Will No April 15 8:44pm Do you have a Healthcare Power of Reed Man? No April 15, 2024 8:44pm Living Will No May 21, 2024 9:47pm Do you have a Healthcare Power of Reed Man? No May 21, 2024 9:47pm Living Will No June 13, 2024 6:35pm Do you have a Healthcare Power of Reed Man? No June 13, 2024 6:35pm Living Will No June 29, 2024 5:36pm Do you have a Healthcare Power of Reed Man? No June 29, 2024 5:36pm Living Will No April 03 7:49pm Do you have a Healthcare Power of Reed Man? No April 03, 2024 7:49pm Living Will No May 04, 025 4:11pm Do you have a Healthcare Power of Reed Man? No May 04, 2024 4:11pm Living Will No May 12, 2024 10:08pm Do you have a Healthcare Power of Reed Man? No May 12, 2024 10:08pm Advance Directives No October 21, 2023 2:47pm Advance Directive Response Recorded Date/ Time Living Will No April 15 8:44pm Do you have a Healthcare Power of Reed Man? No April 15, 2024 8:44pm Living Will No May 21, 2024 9:47pm Do you have a Healthcare Power of Reed Man? No May 21, 2024 9:47pm Living Will No June 13, 2024 6:35pm Do you have a Healthcare Power of Reed Man? No June 13, 2024 6:35pm Living Will No June 29, 2024 5:36pm Do you have a Healthcare Power of Reed Man? No June 29, 2024 5:36pm Living Will No April 03 7:49pm Do you have a Healthcare Power of Reed Man? No April 03, 2024 7:49pm Living Will No May 04, 2 025 4:11pm Do you have a Healthcare Power of Reed Man? No May 04, 2024 4:11pm Living Will No May 12, 2024 10:08pm Do you have a Healthcare Power of Reed Man? No May 12, 2024 10:08pm Do you have a Healthcare Power of Reed Man? No July 02, 2024 2:31pm Advance Directives No October 21, 2023 2:47pm Date Activated Date Inactivated Comments 07/03/2024 4:22 AM 07/04/2024 5:12 PM Question Answer Comments Full Code Order Discussed With: Patient Advance Directive Response Recorded Date/ Time Living Will No April 15 8:44pm Do you have a Healthcare Power of Reed Man? No April 15, 2024 8:44pm Living Will No May 21, 2024 9:47pm Do you have a Healthcare Power of Reed Man? No May 21, 2024 9:47pm Living Will No June 13, 2024 6:35pm Do you have a Healthcare Power of Reed Man? No June 13, 2024 6:35pm Living Will No June 29, 2024 5:36pm Do you have a Healthcare Power of Reed Man? No June 29, 2024 5:36pm Living Will No April 03 7:49pm Do you have a Healthcare Power of Reed Man? No April 03, 2024 7:49pm Living Will No May 04 4:11pm Do you have a Healthcare Power of Reed Man? No May 04, 2024 4:11pm Living Will No May 12, 2024 10:08pm Do you have a Healthcare Power of Reed Man? No May 12, 2024 10:08pm Do you have a Healthcare Power of Reed Man? No July 02, 2024 2:31pm Do you have a Healthcare Power of Reed Man? No July 22, 2024 8:18pm Advance Directives No October 21, 2023 2:47pm Date Activated Date Inactivated Comments 07/03/2024 4:22 AM 07/04/2024 5:12 PM Question Answer Comments Full Code Order Discussed With: Patient Advance Directive Response Recorded Date/ Time Living Will No May 21, 2024 9:47pm Do you have a Healthcare Power of Reed Man? No May 21, 2024 9:47pm Living Will No June 13, 2024 6:35pm Do you have a Healthcare Power of Reed Man? No June 13, 2024 6:35pm Living Will No June 29, 2024 5:36pm Do you have a Healthcare Power of Reed Man? No June 29, 2024 5:36pm Living Will No May 04 4:11pm Do you have a Healthcare Power of Reed Man? No May 04, 2024 4:11pm Living Will No May 12, 2024 10:08pm Do you have a Healthcare Power of Reed Man? No May 12, 2024 10:08pm Do you have a Healthcare Power of Reed Man? No July 02, 2024 2:31pm Do you have a Healthcare Power of Reed Man? No July 22, 2024 8:18pm Advance Directives No October 21, 2023 2:47pm Advance Directive Response Recorded Date/ Time Living Will No June 13, 2024 6:35pm Do you have a Healthcare Power of Reed Man? No June 13, 2024 6:35pm Living Will No June 29, 2024 5:36pm Do you have a Healthcare Power of Reed Man? No June 29, 2024 5:36pm Do you have a Healthcare Power of Reed Man? No July 02, 2024 2:31pm Do you have a Healthcare Power of Reed Man? No July 22, 2024 8:18pm Advance Directives No October 21, 2023 2:47pm Reason for Referral Status Reason Specialty Diagnoses / Procedures Re ferred By Contact Referred To Contact [facility] Services Required Lab Diagnoses Other malignant neuroendocrine tumors Family history of colon cancer Procedures Genetic Sendout: Common Hereditary Cancers Panel Dev Bridges MD [address] [place] [address], [address] [place] [address] Assessments Diagnosis Other malignant neuroendocrine tumors Family history of colon cancer Family history of malignant neoplasm of gastrointestinal tract Chief Complaint and Reason for Visit Chief Complaint 6 mos PPM f/u BACK AND LEG PAIN/RX HERE 9 M FU CAD CAD CHEST PAIN Reason for Visit Monomorphic ventricu lar tachycardia Sick sinus syndrome Presence of permanent cardiac pacemaker Chest pain Atherosclerotic heart disease of [place] coronary artery without angina pectoris Essential (primary) hypertension Hyperlipidemia Presence of permanent cardiac pacemaker Chief Complaint 9 M FU CAD CAD CHEST PAIN BACK AND LEG PAIN/RX HERE BACK PAIN Reason for Visit Chest pain Atherosclerotic heart disease of [place] coronary artery without angina pectoris Essential (primary) hypertension Hyperlipidemia Presence of permanent cardiac pacemaker Chief Complaint BACK PAIN TOXIC METABOLIC ENCEPHALOPATHY ALTERED MENTAL STATUS ALTERED MENTAL STATUS TOXIC METABOLIC ENCEPHALOPATHY CHECK UP, MED REFILLS IV ONLY F/U GASTRO TUMUR Reason for Visit Encephalopathy acute Encephalopathy Polypharmacy Essential (primary) hypertension Chief Complaint BACK PAIN TOXIC METABOLIC ENCEPHALOPATHY ALTERED MENTAL STATUS ALTERED MENTAL STATUS TOXIC METABOLIC ENCEPHALOPATHY CHECK UP, MED REFILLS IV ONLY F/U GASTRO TUMUR LUNG CANCER SCREENING TOBACCO USE 1YR NO LABS REVIEW CT Reason for Visit Encephalopathy acute Encephalopathy Polypharmacy Essential (primary) hypertension [id number] Tobacco use disorder, continuous Primary malignant neuroendocrine tumor of stomach Chief Complaint LUNG CANCER SCREENIN G TOBACCO USE 1YR NO LABS REVIEW CT pacer check/ 2:30 w MMM check up Reason for Visit [id number] Tobacco use disorder, continuous Primary malignant neuroendocrine tumor of stomach Atherosclerotic heart disease of [place] coronary artery without angina pectoris Essential (primary) hypertension Hyperlipidemia Presence of permanent cardiac pacemaker Monomorphic ventricular tachycardia Sick sinus syndrome Presence of permanent cardiac pacemaker Health care maintenance Essential (primary) hypertension Hyperlipidemia Pain of left thumb Chief Complaint 6 MO CK / MMM 1:30 6 MO F/U / AYLIN 1:00 SCREENING HIP PAIN Reason for Visit Monomorphic ventricu lar tachycardia Sick sinus syndrome Presence of permanent cardiac pacemaker Atherosclerotic heart disease of [place] coronary artery without angina pectoris Essential (primary) hypertension Hyperlipidemia Presence of permanent cardiac pacemaker Chief Complaint 6 MO CK / MMM 1:30 6 MO F/U / AYLIN 1:00 SCREENING HIP PAIN fall, left hip pain Reason for Visit Monomorphic ventricu lar tachycardia Sick sinus syndrome Presence of permanent cardiac pacemaker Atherosclerotic heart disease of [place] coronary artery without angina pectoris Essential (primary) hypertension Hyperlipidemia Presence of permanent cardiac pacemaker Chief Complaint 6 MO CK / MMM 1:30 6 MO F/U / AYLIN 1:00 SCREENING HIP PAIN fall, left hip pain EDEMA Reason for Visit Monomorphic ventricu lar tachycardia Sick sinus syndrome Presence of permanent cardiac pacemaker Atherosclerotic heart disease of [place] coronary artery without angina pectoris Essential (primary) hypertension Hyperlipidemia Presence of permanent cardiac pacemaker Chief Complaint 6 MO CK / MMM 1:30 6 MO F/U / AYLIN 1:00 SCREENING HIP PAIN fall, left hip pain EDEMA CHEST PAIN Reason for Visit Monomorphic ventricu lar tachycardia Sick sinus syndrome Presence of permanent cardiac pacemaker Atherosclerotic heart disease of [place] coronary artery without angina pectoris Essential (primary) hypertension Hyperlipidemia Presence of permanent cardiac pacemaker Chief Complaint SCREENING HIP PAIN fall, left hip pain EDEMA CHEST PAIN M16.12 Unilateral primary osteoarthritis, left hip 6 M FU Reason for Visit COPD (chronic obstru ctive pulmonary disease) Debility Essential (primary) hypertension Hypothyroidism Lumbar radiculopathy Chief Complaint 6 M FU 6 M FU/MMM@9 6 M FU/AYLIN@830 Pacer Check Remote Pacer Check Remote Pacer Check Remote Physical for Assisted Living/PROLIA Back Reason for Visit COPD (chronic obstru ctive pulmonary disease) Debility Essential (primary) hypertension Hypothyroidism Lumbar radiculopathy Sick sinus syndrome Presence of permanent cardiac pacemaker Atherosclerotic heart disease of [place] coronary artery without angina pectoris Essential (primary) hypertension Hyperlipidemia Presence of permanent cardiac pacemaker Encounter for examination for admission to assisted living facility Osteopenia Polypharmacy COPD (chronic obstructive pulmonary disease) Essential (primary) hypertension Hyperlipidemia Lumbar radiculopathy ELOY (obstructive sleep apnea) Chief Complaint Pacer Check Remote Physical for Assisted Living/PROLIA Back Pacer Check Remote chest pain Reason for Visit Encounter for examin ation for admission to assisted living facility Osteopenia Polypharmacy COPD (chronic obstructive pulmonary disease) Essential (primary) hypertension Hyperlipidemia Lumbar radiculopathy ELOY (obstructive sleep apnea) Chief Complaint Admit Date 3 M FU January 27, 2024 10:38am Pacer Check Remote February 17, 2024 2 :11am GASTRITIS February 20, 2024 6:43am HYPOXIA AECOPD April 03, 2024 6 :10pm HYPOXIA AECOPD April 04, 2024 7 :23am HYPOXIA AECOPD April 05, 2024 7 :09am DENTAL April 15, 2024 5 :27pm [facility] FU/DENTAL CLEARANCE/3 M FU April 20, 2024 9:34am Referral Order April 21, 2024 2:37pm Arm pain May 04, 2024 2:27pm ABD PAIN May 12, 2024 9:07 pm Pacer Check Remote May 18, 2024 2:1 1am LLE DVT May 21, 2024 7:2 2pm Reason for Visit Admit Date Chest pain January 27, 2024 10:38am UTI (urinary tract infection) January 092023 10:38am Anxiety and depression January 26 10:38am Essential (primary) hypertension Novembe r 2023 10:38am Acute exacerbation of chroni c obstructive pulmonary disease April 03, 2024 6:10pm Hypoxia April 03, 2024 6 :10pm Blood glucose elevated April 20 9:34am Dark urine April 20, 2024 9:34am COPD (chronic obstructive pulmonary dise ase) April 20, 2024 9:34am Essential (primary) hypertension Februar 2024 9:34am Hyperlipidemia April 20, 2024 9:34am Dental caries April 20, 2024 9:34am Chief Complaint Admit Date Pacer Check Remote February 17, 2024 2 :11am GASTRITIS February 20, 2024 6:43am HYPOXIA AECOPD April 03, 2024 6 :10pm HYPOXIA AECOPD April 04, 2024 7 :23am HYPOXIA AECOPD April 05, 2024 7 :09am DENTAL April 15, 2024 5 :27pm [facility] FU/DENTAL CLEARANCE/3 M FU April 20, 2024 9:34am Referral Order April 21, 2024 2:37pm Arm pain May 04, 2024 2:27pm ABD PAIN May 12, 2024 9:07 pm Pacer Check Remote May 18, 2024 2:1 1am LLE DVT May 21, 2024 7:2 2pm ANNUAL IN CLINIC/KRR @ 10:30 June 11, 2024 9:29am 6 M FU/AYLIN @ 10 June 11, 2024 9:31 am INT LABS June 11, 2024 10:3 7am BACK PAIN June 13, 2024 6:31 pm Reason for Visit Admit Date Acute exacerbation of chroni c obstructive pulmonary disease April 03, 2024 6:10pm Hypoxia April 03, 2024 6 :10pm Blood glucose elevated April 20 9:34am Dark urine April 20, 2024 9:34am COPD (chronic obstructive pulmonary dise ase) April 20, 2024 9:34am Essential (primary) hypertension 2024 9:34am Hyperlipidemia April 20, 2024 9:34am Dental caries April 20, 2024 9:34am Presence of permanent cardiac pacemaker June 11, 2024 9:29am Sick sinus syndrome June 11, 2024 9:29 am Chest pain June 11, 2024 9:31 am Dizziness June 11, 2024 9:31 am DENNISON (dyspnea on exertion) June 11 9:31am Fatigue June 11, 2024 9:31 am Atherosclerotic heart diseas e of [place] coronary artery without angina pectoris June 11, 2024 9:31am Essential (primary) hypertension June 112024 9:31am Hyperlipidemia June 11, 2024 9:31 am Presence of permanent cardiac pacemaker June 11, 2024 9:31am Chief Complaint Admit Date HYPOXIA AECOPD April 03, 2024 6 :10pm HYPOXIA AECOPD April 04, 2024 7 :23am HYPOXIA AECOPD April 05, 2024 7 :09am DENTAL April 15, 2024 5 :27pm [facility] FU/DENTAL CLEARANCE/3 M FU April 20, 2024 9:34am Referral Order April 21, 2024 2:37pm Arm pain May 04, 2024 2:27pm ABD PAIN May 12, 2024 9:07 pm Pacer Check Remote May 18, 2024 2:1 1am LLE DVT May 21, 2024 7:2 2pm Pacer Check Remote June 11, 2024 9:00 am ANNUAL IN CLINIC/KRR @ 10:30 June 11, 2024 9:29am 6 M FU/AYLIN @ 10 June 11, 2024 9:31 am INT LABS June 11, 2024 10:3 7am BACK PAIN June 13, 2024 6:31 pm DIZZINESS June 26, 2024 7:1 4am Amb Documentation June 29, 2024 8:2 8am CHEST OTHER June 29, 2024 5:2 7pm Chief Complaint Admit Date HYPOXIA AECOPD April 03, 2024 6 :10pm HYPOXIA AECOPD April 04, 2024 7 :23am HYPOXIA AECOPD April 05, 2024 7 :09am DENTAL April 15, 2024 5 :27pm [facility] FU/DENTAL CLEARANCE/3 M FU April 20, 2024 9:34am Referral Order April 21, 2024 2:37pm Arm pain May 04, 2024 2:27pm ABD PAIN May 12, 2024 9:07 pm Pacer Check Remote May 18, 2024 2:1 1am LLE DVT May 21, 2024 7:2 2pm Pacer Check Remote June 11, 2024 9:00 am ANNUAL IN CLINIC/KRR @ 10:June 11, 2024 9:29am 6 M FU/AYLIN @ 10 June 11, 2024 9:31 am INT LABS June 11, 2024 10:3 7am BACK PAIN June 13, 2024 6:31 pm DIZZINESS June 26, 2024 7:1 4am Amb Documentation June 29, 2024 8:2 8am CHEST OTHER June 29, 2024 5:2 7pm back July 02, 2024 2:2 7pm Chief Complaint Admit Date HYPOXIA AECOPD April 03, 2024 6 :10pm HYPOXIA AECOPD April 04, 2024 7 :23am HYPOXIA AECOPD April 05, 2024 7 :09am DENTAL April 15, 2024 5 :27pm [facility] FU/DENTAL CLEARANCE/3 M FU April 20, 2024 9:34am Referral Order April 21, 2024 2:37pm Arm pain May 04, 2024 2:27pm ABD PAIN May 12, 2024 9:07 pm Pacer Check Remote May 18, 2024 2:1 1am LLE DVT May 21, 2024 7:2 2pm Pacer Check Remote June 11, 2024 9:00 am ANNUAL IN CLINIC/KRR @ 10:June 11, 2024 9:29am 6 M FU/AYLIN @ June 11, 2024 9:31 am INT LABS June 11, 2024 10:3 7am BACK PAIN June 13, 2024 6:31 pm DIZZINESS June 26, 2024 7:1 4am Amb Documentation June 29, 2024 8:2 8am CHEST OTHER June 29, 2024 5:2 7pm back July 02, 2024 2:2 7pm 3 M FU [facility] July 092024 9:32am Chief Complaint Admit Date HYPOXIA AECOPD April 03, 2024 6 :10pm HYPOXIA AECOPD April 04, 2024 7 :23am HYPOXIA AECOPD April 05, 2024 7 :09am DENTAL April 15, 2024 5 :27pm [facility] FU/DENTAL CLEARANCE/3 M FU April 20, 2024 9:34am Referral Order April 21, 2024 2:37pm Arm pain May 04, 2024 2:27pm ABD PAIN May 12, 2024 9:07 pm Pacer Check Remote May 18, 2024 2:1 1am LLE DVT May 21, 2024 7:2 2pm Pacer Check Remote June 11, 2024 9:00 am ANNUAL IN CLINIC/KRR @ :June 11, 2024 9:29am 6 M FU/AYLIN @ June 11, 2024 9:31 am INT LABS June 11, 2024 10:3 7am BACK PAIN June 13, 2024 6:31 pm DIZZINESS June 26, 2024 7:1 4am Amb Documentation June 29, 2024 8:2 8am CHEST OTHER June 29, 2024 5:2 7pm back July 02, 2024 2:2 7pm 3 M FU [facility] 07/02-07/04July 092024 9:32am complaint July 22, 2024 8:14p m Reason for Visit Admit Date Acute exacerbation of chroni c obstructive pulmonary disease April 03, 2024 6:10pm Hypoxia April 03, 2024 6 :10pm Blood glucose elevated April 20 9:34am Dark urine April 20, 2024 9:34am COPD (chronic obstructive pulmonary dise ase) April 20, 2024 9:34am Essential (primary) hypertension 2024 9:34am Hyperlipidemia April 20, 2024 9:34am Dental caries April 20, 2024 9:34am Presence of permanent cardiac pacemaker June 11, 2024 9:29am Sick sinus syndrome June 11, 2024 9:29 am Chest pain June 11, 2024 9:31 am Dizziness June 11, 2024 9:31 am DENNISON (dyspnea on exertion) June 11 9:31am Fatigue June 11, 2024 9:31 am Atherosclerotic heart diseas e of [place] coronary artery without angina pectoris June 11, 2024 9:31am Essential (primary) hypertension June 112024 9:31am Hyperlipidemia June 11, 2024 9:31 am Presence of permanent cardiac pacemaker June 11, 2024 9:31am Hypersomnolence July 22, 2024 9:32a m Ambulatory dysfunction July 22, 2024 9: 32am Anxiety and depression July 22, 2024 9: 32am Chronic lower back pain July 22, 2024 9 :32am Hypertension July 22, 2024 9:32a m Type 2 diabetes mellitus July 22, 2024 9:32am Chief Complaint Admit Date Arm pain May 04, 2024 2:27pm ABD PAIN May 12, 2024 9:07 pm Pacer Check Remote May 18, 2024 2:1 1am LLE DVT May 21, 2024 7:2 2pm Pacer Check Remote June 11, 2024 9:00 am ANNUAL IN CLINIC/KRR @ 10:30 June 11, 2024 9:29am 6 M FU/AYLIN @ 10 June 11, 2024 9:31 am INT LABS June 11, 2024 10:3 7am BACK PAIN June 13, 2024 6:31 pm DIZZINESS June 26, 2024 7:1 4am Amb Documentation June 29, 2024 8:2 8am CHEST OTHER June 29, 2024 5:2 7pm back July 02, 2024 2:2 7pm 3 M FU [facility] 07/02-07/04July 092024 9:32am complaint July 22, 2024 8:14p m Pacer Check Remote August 17, 2024 3:43a m Reason for Visit Admit Date Presence of permanent cardiac pacemaker June 11, 2024 9:29am Sick sinus syndrome June 11, 2024 9:29 am Chest pain June 11, 2024 9:31 am Dizziness June 11, 2024 9:31 am DENNISON (dyspnea on exertion) June 11 9:31am Fatigue June 11, 2024 9:31 am Atherosclerotic heart diseas e of [place] coronary artery without angina pectoris June 11, 2024 9:31am Essential (primary) hypertension June 112024 9:31am Hyperlipidemia June 11, 2024 9:31 am Presence of permanent cardiac pacemaker June 11, 2024 9:31am Hypersomnolence July 22, 2024 9:32a m Ambulatory dysfunction July 22, 2024 9: 32am Anxiety and depression July 22, 2024 9: 32am Chronic lower back pain July 22, 2024 9 :32am Hypertension July 22, 2024 9:32a m Type 2 diabetes mellitus July 22, 2024 9:32am Chief Complaint Admit Date Pacer Check Remote June 11, 2024 9:00 am ANNUAL IN CLINIC/KRR @ 10:June 11, 2024 9:29am 6 M FU/AYLIN @ 10 June 11, 2024 9:31 am INT LABS June 11, 2024 10:3 7am BACK PAIN June 13, 2024 6:31 pm DIZZINESS June 26, 2024 7:1 4am Amb Documentation June 29, 2024 8:2 8am CHEST OTHER June 29, 2024 5:2 7pm back July 02, 2024 2:2 7pm 3 M FU [facility] 07/02-07/04July 092024 9:32am complaint July 22, 2024 8:14p m Pacer Check Remote August 17, 2024 3:43a m STOMACH PAIN, NEASEOUS October 02, 2024 1 :02pm Additional Source Comments INFORMATION SOURCE (unrecogn ized section and content) DATE CREATED AUTHOR 09/07/2018 [facility] DATE CREATED AUTHOR AUTHOR'S ORGANIZ ATION 10/11/2018 [facility] DATE CREATED AUTHOR AUTHOR'S ORGANIZ ATION 05/10/2020 [facility] ([place]) DATE CREATED AUTHOR AUTHOR'S ORGANIZ ATION 10/10/2020 [facility] DATE CREATED AUTHOR AUTHOR'S ORGANIZ ATION 07/02/2024 [facility] DATE CREATED AUTHOR AUTHOR'S ORGANIZ ATION 08/07/2024 [facility] DATE CREATED AUTHOR AUTHOR'S ORGANIZ ATION 08/13/2024 [facility] DATE CREATED AUTHOR AUTHOR'S ORGANIZ ATION 10/05/2024 [facility] Reason for Visit (unrecogniz ed section and content) Status Reason Specialty Diagnoses / Procedures Re ferred By Contact Referred To Contact [facility] Required Lab Diagnoses Other malignant neuroendocrine tumors Family history of colon cancer Procedures Genetic Sendout: Common Hereditary Cancers Panel Dev Bridges MD [address] [place] [address], [address] [place] [address] Reason Comments Orders Received message for m Dr. Mays that he would like MRI's ordered as STAT Reason Comments Established Patient Reason Comments Appointment Goals (unrecognized section and content) Goals may be documented in a n alternate sectionGoals may be documented in an alternate sectionGoals may be documented in an alternate sectionGoals may be documented in an alternate sectionGoals may be documented in an alternate sectionGoals may be documented in an alternate sectionGoals may be documented in an alternate sectionGoals may be documented in an alternate sectionGoals may be documented in an alternate sectionGoals may be documented in an alternate sectionGoals may be documented in an alternate sectionGoals may be documented in an alternate sectionGoals may be documented in an alternate sectionGoals may be documented in an alternate section Care Teams (unrecognized sec tion and content) Team Status: Active Member Role Status Dates Dr. Charla Wadsworth MD Family Provider Active Dr. Charla Wadsworth MD Primary Care Provider Active Team Status: Inactive Member Role Status Dates Dr. Charla Wadsworth MD Primary Care Provider, Refer ring Provider Active Imelda Hernandez Active Dr. Samuel Keys MD Attending Provider Active Team Status: Inactive Member Role Status Dates Dr. Charla Wadsworth MD Primary Care Provider, Refer ring Provider Active Dr. Raegan Noel MD Attending Provider Active Team Status: Inactive Member Role Status Dates Dr. Charla Wadsworth MD Primary Care Provider Active Candy Hsu ACCELERATOR TECHNICIAN, ACCELERATOR TECHNICIAN-C Attending Provider, Referring Provider Active Team Status: Inactive Member Role Status Dates Dr. Charla Wadsworth MD Primary Care P rovider, Attending Provider, Referring Provider Active Team Status: Inactive Member Role Status Dates Dr. Charla Wadsworth MD Primary Care Provider, Refer ring Provider Active Rosemarie Mary PA, PA Attending Provider Active Team Status: Inactive Member Role Status Dates Dr. Charla Wadsworth MD Primary Care P rovider, Attending Provider, Referring Provider Active Dr. Raegan Noel MD Other Provider Active Team Status: Inactive Member Role Status Dates Dr. Charla Wadsworth MD Primary Care Provider Active Dr. Ubaldo Haynes DO Emergency Provider Active Team Status: Inactive Member Role Status Dates Dr. Charla Wadsworth MD Primary Care Provider Active Dr. Pj Ruiz DO Emergency Provider Active Team Status: Inactive Member Role Status Dates Dr. Charla Wadsworth MD Primary Care Provider Active Dr. Pj Ruiz DO Attending Provider, Emergency Provide r Active Team Status: Inactive Member Role Status Dates Dr. Charla Wadsworth MD Primary Care Provider Active Dr. Ubaldo Haynes DO Attending Provider, Emergency P rovider Active Team Status: Inactive Member Role Status Dates Dr. Charla Wadsworth MD Primary Care Provider Active Dr. Crystal Lujan DO Emergency Provider Active Team Status: Inactive Member Role Status Dates Dr. Charla Wadsworth MD Primary Care Provider Active Dr. Keon Ramirez DO Emergency Provider Active Team Status: Inactive Member Role Status Dates Dr. Charla Wadsworth MD Primary Care Provider Active Dr. Crystal Lujan DO Attending Provider, Emergency P rovider Active Team Status: Inactive Member Role Status Dates Dr. Charla Wadsworth MD Primary Care Provider Active Dr. Keon Ramirez DO Attending Provider, Emergency P roviany Active Team Status: Inactive Member Role Status Dates Dr. Charla Wadsworth MD Primary Care Provider Active Dr. Mainor Abernathy MD Attending Provider, Referring Provider Active Team Status: Inactive Member Role Status Dates Dr. Charla Wadsowrth MD Primary Care Provider Active Dr. Samuel Keys MD Attending Provider Active Team Status: Inactive Member Role Status Dates Dr. Charla Wadsworth MD Primary Care Provider, Refer ring Provider Active EDWIN Fletcher Attending Provider Active Team Status: Active Member Role Status Dates Dr. Charla Wadsworth MD Primary Care Provider Active Dr. Samuel Keys MD Attending Provider, Referring Pro vider Active Team Status: Inactive Member Role Status Dates Dr. Charla Wadsworth MD Primary Care Provider Active Ed Physician Provider Emergency Provider Active Team Status: Inactive Member Role Status Dates Dr. Charla Wadsworth MD Primary Care Provider Active Dr. Panda Rowe DO Emergency Provider Active Team Status: Inactive Member Role Status Dates Dr. Charla Wadsworth MD Primary Care Provider Active Ed Physician Provider Attending Provider, Emergency Pr ovider Active Team Status: Active Member Role Status Dates Dr. Charla Wadsworth MD Primary Care Provider Active Team Status: Inactive Member Role Status Dates Dr. Charla Wadsworth MD Primary Care Provider Active Start: January 27, 2024 End: January 27, 2024 Dr. Charla Wadsworth MD Attending Provider Active Start: January 27, 2024 End: January 27, 2024 Dr. Charla Wadsworth MD Referring Provider Active Start: January 27, 2024 End: January 27, 2024 Team Status: Inactive Member Role Status Dates Dr. Charla Wadsworth MD Primary Care Provider Active Start: February 17, 2024 End: February 17, 2024 Dr. Samuel Keys MD Attending Provider Active S tart: February 17, 2024 End: February 17, 2024 Team Status: Inactive Member Role Status Dates Dr. Charla Wadsworth MD Primary Care Provider Active Start: February 20, 2024 End: February 20, 2024 Dr. Alan Mack MD Attending Provider Active Start: February 20, 2024 End: February 20, 2024 Dr. Alan Mack MD Referring Provider Active Start: February 20, 2024 End: February 20, 2024 Team Status: Inactive Member Role Status Dates Dr. Charla Wadsworth MD Primary Care Provider Active Start: April 03, 2024 End: April 05, 2024 Dr. Crystal Lujan DO Emergency Provider Active Start: April 03, 2024 End: April 05, 2024 Dr. Tita Winn MD Admit Provider Active Star t: April 03, 2024 End: April 05, 2024 Dr. Tita Winn MD Other Provider Active Star t: April 03, 2024 End: April 05, 2024 Dr. Autumn Gorman MD Attending Provider Active Start: April 03, 2024 End: April 05, 2024 Team Status: Active Member Role Status Dates Dr. Charla Wadsworth MD Primary Care Provider Active Start: April 04, 2024 Dr. Crystal Lujan DO Emergency Provider Active Start: April 04, 2024 Dr. Tita Winn MD Admit Provider Active Star t: April 04, 2024 Dr. Tita Winn MD Other Provider Active Star t: April 04, 2024 Dr. Autumn Gorman MD Attending Provider Active Start: April 04, 2024 Dr. Autumn Gorman MD Other Provider Active Star t: April 04, 2024 Team Status: Active Member Role Status Dates Dr. Charla Wadsworth MD Primary Care Provider Active Start: April 05, 2024 Dr. Crystal Lujan DO Emergency Provider Active Start: April 05, 2024 Dr. Tita Winn MD Admit Provider Active Star t: April 05, 2024 Dr. Tita Winn MD Other Provider Active Star t: April 05, 2024 Dr. Autumn Gorman MD Attending Provider Active Start: April 05, 2024 Dr. Autumn Gorman MD Other Provider Active Star t: April 05, 2024 Team Status: Inactive Member Role Status Dates Dr. Charla Wadsworth MD Primary Care Provider Active Start: April 15, 2024 End: April 15, 2024 Gigi Barton MD Attending Provider Active Star t: April 15, 2024 End: April 15, 2024 Gigi Barton MD Emergency Provider Active Star t: April 15, 2024 End: April 15, 2024 Team Status: Inactive Member Role Status Dates Dr. Charla Wadsworth MD Primary Care Provider Active Start: April 20, 2024 End: April 20, 2024 Dr. Charla Wadsworth MD Attending Provider Active Start: April 20, 2024 End: April 20, 2024 Dr. Charla Wadsworth MD Referring Provider Active Start: April 20, 2024 End: April 20, 2024 Team Status: Active Member Role Status Dates Dr. Charla Wadsworth MD Primary Care Provider Active Start: April 21, 2024 Dr. Charla Wadsworth MD Attending Provider Active Start: April 21, 2024 Team Status: Inactive Member Role Status Dates Dr. Charla Wadsworth MD Primary Care Provider Active Start: May 04, 2024 End: May 04, 2024 Dr. Gregory Xie DO Attending Provider Active Start: May 04, 2024 End: May 04, 2024 Dr. Gregory Xie DO Emergency Provider Active Start: May 04, 2024 End: May 04, 2024 Team Status: Active Member Role Status Dates Dr. Charla Wadsworth MD Primary Care Provider Active Start: May 04, 2024 Dr. Keon France MD Attending Provider Active S tart: May 04, 2024 EDWIN Mosley Referring Provider Active Start: May 04, 2024 Team Status: Inactive Member Role Status Dates Dr. Charla Wadsworth MD Primary Care Provider Active Start: May 12, 2024 End: May 13, 2024 Dr. Panda Rowe DO Emergency Provider Active Start: May 12, 2024 End: May 13, 2024 Team Status: Inactive Member Role Status Dates Dr. Charla Wadsworth MD Primary Care Provider Active Start: May 18, 2024 End: May 18, 2024 Dr. Samuel Keys MD Attending Provider Active S tart: May 18, 2024 End: May 18, 2024 Team Status: Inactive Member Role Status Dates Dr. Charla Wadsworth MD Primary Care Provider Active Start: May 21, 2024 End: May 22, 2024 Dr. Panda Rowe DO Emergency Provider Active Start: May 21, 2024 End: May 22, 2024 Team Status: Inactive Member Role Status Dates Dr. Charla Wadsworth MD Primary Care Provider Active Start: May 12, 2024 End: May 13, 2024 Dr. Panda Rowe DO Attending Provider Active Start: May 12, 2024 End: May 13, 2024 Dr. Panda Rowe DO Emergency Provider Active Start: May 12, 2024 End: May 13, 2024 Team Status: Inactive Member Role Status Dates Dr. Charla Wadsworth MD Primary Care Provider Active Start: May 21, 2024 End: May 22, 2024 Dr. Panda Rowe DO Attending Provider Active Start: May 21, 2024 End: May 22, 2024 Dr. Panda Rwoe DO Emergency Provider Active Start: May 21, 2024 End: May 22, 2024 Team Status: Inactive Member Role Status Dates Dr. Charla Wadsworth MD Primary Care Provider Active Start: June 11, 2024 End: June 11, 2024 Dr. Charla Wadsworth MD Referring Provider Active Start: June 11, 2024 End: June 11, 2024 Imelda Hernandez Attending Provider Active Start: A pri2024 End: June 11, 2024 Team Status: Inactive Member Role Status Dates Dr. Charla Wadsworth MD Primary Care Provider Active Start: June 11, 2024 End: June 11, 2024 Dr. Charla Wadsworth MD Referring Provider Active Start: June 11, 2024 End: June 11, 2024 Kareen Bradshaw ACCELERATOR TECHNICIAN, ACCELERATOR TECHNICIAN-C Attending Provider Active Start: June 11, 2024 End: June 11, 2024 Team Status: Active Member Role Status Dates Dr. Chrala Wadsworth MD Primary Care Provider Active Start: June 11, 2024 Kareen Bradshaw ACCELERATOR TECHNICIAN, ACCELERATOR TECHNICIAN-C Attending Provider Active Start: June 11, 2024 Kareen Bradshaw ACCELERATOR TECHNICIAN, ACCELERATOR TECHNICIAN-C Referring Provider Active Start: June 11, 2024 Team Status: Inactive Member Role Status Dates Dr. Charla Wadsworth MD Primary Care Provider Active Start: June 13, 2024 End: June 13, 2024 Gigi Barton MD Emergency Provider Active Star t: June 13, 2024 End: June 13, 2024 Team Status: Inactive Member Role Status Dates Dr. Charla Wadsworth MD Primary Care Provider Active Start: June 11, 2024 End: June 11, 2024 Dr. Samuel Keys MD Attending Provider Active S tart: June 11, 2024 End: June 11, 2024 Team Status: Inactive Member Role Status Dates Dr. Charla Wadsworth MD Primary Care Provider Active Start: June 11, 2024 End: June 11, 2024 Kareen Bradshaw ACCELERATOR TECHNICIAN, ACCELERATOR TECHNICIAN-C Attending Provider Active Start: June 11, 2024 End: June 11, 2024 Kareen Bradshaw ACCELERATOR TECHNICIAN, ACCELERATOR TECHNICIAN-C Referring Provider Active Start: June 11, 2024 End: June 11, 2024 Team Status: Inactive Member Role Status Dates Dr. Charla Wadsworth MD Primary Care Provider Active Start: June 13, 2024 End: June 13, 2024 Gigi Barton MD Attending Provider Active Star t: June 13, 2024 End: June 13, 2024 Gigi Barton MD Emergency Provider Active Star t: June 13, 2024 End: June 13, 2024 Team Status: Active Member Role Status Dates Dr. Charla Wadsworth MD Primary Care Provider Active Start: June 26, 2024 Kareen Bradshaw ACCELERATOR TECHNICIAN, ACCELERATOR TECHNICIAN-C Attending Provider Active Start: June 26, 2024 Kareen Bradshaw ACCELERATOR TECHNICIAN, ACCELERATOR TECHNICIAN-C Referring Provider Active Start: June 26, 2024 Team Status: Active Member Role Status Dates Dr. Charla Wadsworth MD Primary Care Provider Active Start: June 26, 2024 Dr. Keon France MD Attending Provider Active S tart: June 26, 2024 Team Status: Active Member Role Status Dates Dr. Charla Wadsworth MD Primary Care Provider Active Start: June 29, 2024 Karene Bradshaw ACCELERATOR TECHNICIAN, ACCELERATOR TECHNICIAN-C Attending Provider Active Start: June 29, 2024 Team Status: Inactive Member Role Status Dates Dr. Charla Wadsworth MD Primary Care Provider Active Start: June 29, 2024 End: June 29, 2024 Dr. Virgil Daniels MD Emergency Provider Active Sta rt: June 29, 2024 End: June 29, 2024 Team Status: Inactive Member Role Status Dates Dr. Charla Wadsworth MD Primary Care Provider Active Start: June 26, 2024 End: June 26, 2024 Kareen Bradshaw ACCELERATOR TECHNICIAN, ACCELERATOR TECHNICIAN-C Attending Provider Active Start: June 26, 2024 End: June 26, 2024 Kareen Bradshaw ACCELERATOR TECHNICIAN, ACCELERATOR TECHNICIAN-C Referring Provider Active Start: June 26, 2024 End: June 26, 2024 Team Status: Inactive Member Role Status Dates Dr. Charla Wadsworth MD Primary Care Provider Active Start: July 02, 2024 End: July 03, 2024 Dr. Kati Burkett DO Referring Provider Active S tart: July 02, 2024 End: July 03, 2024 Dr. Kati Burkett DO Emergency Provider Active S tart: July 02, 2024 End: July 03, 2024 Certification And Selection Specialist Relationship Specialty Start Date End Date Charla Wadsworth MD [address] [place] [address] PCP - General Internal Medicine 07/03/24 Certification And Selection Specialist Relationship Specialty Start Date End Date Charla Wadsworth MD [address] [place] [address] PCP - General Internal Medicine 07/03/24 Team Status: Inactive Member Role Status Dates Dr. Charla Wadsworth MD Primary Care Provider Active Start: June 11, 2024 End: June 11, 2024 Dr. Charla Wadsworth MD Referring Provider Active Start: June 11, 2024 End: June 11, 2024 Dr. Samuel Keys MD Attending Provider Active S tart: June 11, 2024 End: June 11, 2024 Team Status: Active Member Role Status Dates Dr. Charla Wadsworth MD Primary Care Provider Active Start: June 26, 2024 Dr. Keon France MD Attending Provider Active S tart: June 26, 2024 Kareen Bradshaw ACCELERATOR TECHNICIAN, ACCELERATOR TECHNICIAN-C Referring Provider Active Start: June 26, 2024 Team Status: Inactive Member Role Status Dates Dr. Charla Wadsworth MD Primary Care Provider Active Start: June 29, 2024 End: June 29, 2024 Dr. Virgil Daniels MD Attending Provider Active Sta rt: June 29, 2024 End: June 29, 2024 Dr. Virgil Daniels MD Emergency Provider Active Sta rt: June 29, 2024 End: June 29, 2024 Team Status: Inactive Member Role Status Dates Dr. Charla Wadsworth MD Primary Care Provider Active Start: July 02, 2024 End: July 03, 2024 Dr. Kati Burkett DO Attending Provider Active S tart: July 02, 2024 End: July 03, 2024 Dr. Kati Burkett DO Referring Provider Active S tart: July 02, 2024 End: July 03, 2024 Dr. Kati Burkett DO Emergency Provider Active S tart: July 02, 2024 End: July 03, 2024 Team Status: Inactive Member Role Status Dates Dr. Charla Wadsworth MD Primary Care Provider Active Start: July 22, 2024 End: July 22, 2024 Dr. Charla Wadsworth MD Attending Provider Active Start: July 22, 2024 End: July 22, 2024 Dr. Charla Wadsworth MD Referring Provider Active Start: July 22, 2024 End: July 22, 2024 Team Status: Inactive Member Role Status Dates Dr. Charla Wadsworth MD Primary Care Provider Active Start: July 22, 2024 End: July 23, 2024 Dr. Chaim Maurer DO Emergency Provider Active Start: July 22, 2024 End: July 23, 2024 Certification And Selection Specialist Relationship Specialty Start Date End Date Charla Wadsworth MD [address] [place], [place] [id number] PCP - General Internal Medicine 07/03/24 Certification And Selection Specialist Relationship Specialty Start Date End Date Charla Wadsworth MD [address] [place], [place] [id number]07- PCP - General Internal Medicine 07/03/24 Certification And Selection Specialist Relationship Specialty Start Date End Date Charla Wadsworth MD [address] [place] [address] PCP - General Internal Medicine 07/03/24 Team Status: Inactive Member Role Status Dates Dr. Charla Wadsworth MD Primary Care Provider Active Start: July 22, 2024 End: July 23, 2024 Dr. Chaim Maurer DO Attending Provider Active Start: July 22, 2024 End: July 23, 2024 Dr. Chaim Maurer DO Emergency Provider Active Start: July 22, 2024 End: July 23, 2024 Team Status: Inactive Member Role Status Dates Dr. Charla Wadsworth MD Primary Care Provider Active Start: August 17, 2024 End: August 17, 2024 Dr. Samuel Keys MD Attending Provider Active S tart: August 17, 2024 End: August 17, 2024 Team Status: Active Member Role/Relationship Status Dates Dr. Charla Wadsworth MD Primary Care Provider Active Team Status: Inactive Member Role/Relationship Status Dates Dr. Charla Wadsworth MD Primary Care Provider Active Start: June 11, 2024 End: June 11, 2024 Dr. Samuel Keys MD Attending Provider Active S tart: June 11, 2024 End: June 11, 2024 Team Status: Inactive Member Role/Relationship Status Dates Dr. Charla Wadsworth MD Primary Care Provider Active Start: June 11, 2024 End: June 11, 2024 Dr. Charla Wadsworth MD Referring Provider Active Start: June 11, 2024 End: June 11, 2024 Dr. Samuel Keys MD Attending Provider Active S tart: June 11, 2024 End: June 11, 2024 Team Status: Inactive Member Role/Relationship Status Dates Dr. Charla Wadsworth MD Primary Care Provider Active Start: June 11, 2024 End: June 11, 2024 Dr. Charla Wadsworth MD Referring Provider Active Start: June 11, 2024 End: June 11, 2024 Kareen Bradshaw ACCELERATOR TECHNICIAN, ACCELERATOR TECHNICIAN-C Attending Provider Active Start: June 11, 2024 End: June 11, 2024 Team Status: Inactive Member Role/Relationship Status Dates Dr. Charla Wadsworth MD Primary Care Provider Active Start: June 11, 2024 End: June 11, 2024 Kareen Bradshaw ACCELERATOR TECHNICIAN, ACCELERATOR TECHNICIAN-C Attending Provider Active Start: June 11, 2024 End: June 11, 2024 Kareen Bradshaw ACCELERATOR TECHNICIAN, ACCELERATOR TECHNICIAN-C Referring Provider Active Start: June 11, 2024 End: June 11, 2024 Team Status: Inactive Member Role/Relationship Status Dates Dr. Charla Wadsworth MD Primary Care Provider Active Start: June 13, 2024 End: June 13, 2024 Gigi Barton MD Attending Provider Active Star t: June 13, 2024 End: June 13, 2024 Gigi Barton MD Emergency Provider Active Star t: June 13, 2024 End: June 13, 2024 Team Status: Inactive Member Role/Relationship Status Dates Dr. Charla Wadsworth MD Primary Care Provider Active Start: June 26, 2024 End: June 26, 2024 Kareen Bradshaw ACCELERATOR TECHNICIAN, ACCELERATOR TECHNICIAN-C Attending Provider Active Start: June 26, 2024 End: June 26, 2024 Kareen Bradshaw ACCELERATOR TECHNICIAN, ACCELERATOR TECHNICIAN-C Referring Provider Active Start: June 26, 2024 End: June 26, 2024 Team Status: Active Member Role/Relationship Status Dates Dr. Charla Wadsworth MD Primary Care Provider Active Start: June 26, 2024 Dr. Keon France MD Attending Provider Active S tart: June 26, 2024 Kareen Bradshaw ACCELERATOR TECHNICIAN, ACCELERATOR TECHNICIAN-C Referring Provider Active Start: June 26, 2024 Team Status: Active Member Role/Relationship Status Dates Dr. Charla Wadsworth MD Primary Care Provider Active Start: June 29, 2024 Kareen Bradshaw ACCELERATOR TECHNICIAN, ACCELERATOR TECHNICIAN-C Attending Provider Active Start: June 29, 2024 Team Status: Inactive Member Role/Relationship Status Dates Dr. Charla Wadsworth MD Primary Care Provider Active Start: June 29, 2024 End: June 29, 2024 Dr. Virgil Daniels MD Attending Provider Active Sta rt: June 29, 2024 End: June 29, 2024 Dr. Virgil Daniels MD Emergency Provider Active Sta rt: June 29, 2024 End: June 29, 2024 Team Status: Inactive Member Role/Relationship Status Dates Dr. Charla Wadsworth MD Primary Care Provider Active Start: July 02, 2024 End: July 03, 2024 Dr. Kati Burkett DO Attending Provider Active S tart: July 02, 2024 End: July 03, 2024 Dr. Kati Burkett DO Referring Provider Active S tart: July 02, 2024 End: July 03, 2024 Dr. Kati Burkett DO Emergency Provider Active S tart: July 02, 2024 End: July 03, 2024 Team Status: Inactive Member Role/Relationship Status Dates Dr. Charla Wadsworth MD Primary Care Provider Active Start: July 22, 2024 End: July 22, 2024 Dr. Charla Wadsworth MD Attending Provider Active Start: July 22, 2024 End: July 22, 2024 Dr. Charla Wadsworth MD Referring Provider Active Start: July 22, 2024 End: July 22, 2024 Team Status: Inactive Member Role/Relationship Status Dates Dr. Charla Wadsworth MD Primary Care Provider Active Start: July 22, 2024 End: July 23, 2024 Dr. Chaim Maurer DO Attending Provider Active Start: July 22, 2024 End: July 23, 2024 Dr. Chaim Maurer DO Emergency Provider Active Start: July 22, 2024 End: July 23, 2024 Team Status: Inactive Member Role/Relationship Status Dates Dr. Charla Wadsworth MD Primary Care Provider Active Start: August 17, 2024 End: August 17, 2024 Dr. Samuel Keys MD Attending Provider Active S tart: August 17, 2024 End: August 17, 2024 Team Status: Inactive Member Role/Relationship Status Dates Dr. Charla Wadsworth MD Primary Care Provider Active Start: October 02, 2024 End: October 02, 2024 Dr. Charla Wadsworth MD Referring Provider Active Start: October 02, 2024 End: October 02, 2024 EDWIN Crespo Attending Provider Active Start: October 02, 2024 End: October 02, 2024 Source Comments (unrecognize d section and content) In the event this informatio n is protected by the Federal Confidentiality of Alcohol and Drug Abuse Patient Records regulations: The Federal rules restrict any use of the information to criminally investigate or prosecute any alcohol or drug abuse patient.[facility] Center[facility] the event this information is protected by the Federal Confidentiality of Alcohol and Drug Abuse Patient Records regulations: The Federal rules restrict any use of the information to criminally investigate or prosecute any alcohol or drug abuse patient.[facility] Center[facility] the event this information is protected by the Federal Confidentiality of Alcohol and Drug Abuse Patient Records regulations: The Federal rules restrict any use of the information to criminally investigate or prosecute any alcohol or drug abuse patient.[facility] Center[facility] the event this information is protected by the Federal Confidentiality of Alcohol and Drug Abuse Patient Records regulations: The Federal rules restrict any use of the information to criminally investigate or prosecute any alcohol or drug abuse patient.[facility] Center[facility] the event this information is protected by the Federal Confidentiality of Alcohol and Drug Abuse Patient Records regulations: The Federal rules restrict any use of the information to criminally investigate or prosecute any alcohol or drug abuse patient.[facility] CenterIn the event this information is protected by the Federal Confidentiality of Alcohol and Drug Abuse Patient Records regulations: The Federal rules restrict any use of the information to criminally investigate or prosecute any alcohol or drug abuse patient.[facility] CenterIn the event this information is protected by the Federal Confidentiality of Alcohol and Drug Abuse Patient Records regulations: The Federal rules restrict any use of the information to criminally investigate or prosecute any alcohol or drug abuse patient.[facility] FOR RECORDS PERTAINING TO PATIENTS WHO ARE OR HAVE BEEN ENROLLED IN A CHEMICAL DEPENDENCY/SUBSTANCEABUSE PROGRAM, SOME INFORMATION MAY BE OMITTED. This clinical summary was aggregated from multiple sources. Caution should be exercised in using it in the provision of clinical care. This summary normalizes information from multiple sources, and as a consequence, information in this document may materially change the coding, format and clinical context of patient data. In addition, data may be omitted in some cases. CLINICAL DECISIONS SHOULD BE BASED ON THE PRIMARY CLINICAL RECORDS. [facility]. provides no warranty or guarantee of the accuracy or completeness of information in this document.
--- NOTE | 2024-10-10 16:45 | RAD_ITS ---
PROCEDURE: CLAVICLE 10/10/2024 REASON FOR EXAM: PAIN TECHNIQUE: CLAVICLE COMPARISON: No FINDINGS: Mild AC joint and glenohumeral joint osteoarthritis. No fracture or dislocation. RAD/Clavicle IMPRESSION: No acute clavicle injury noted. Reading Location: [place] [address]
--- NOTE | 2024-10-10 16:45 | RAD_ITS ---
PROCEDURE: HIP, UNI W/ PELVIS 2-3 VIEWS 10/10/2024 REASON FOR EXAM: PAIN, FALL TECHNIQUE: HIP, UNI W/ PELVIS 2-3 VIEWS COMPARISON: 11/15/2022 FINDINGS: Status post lower lumbar spine surgery. Stimulator device overlies the right hemipelvis. Bilateral hip osteoarthritis. Intact pelvic ring. RAD/HIP, UNI W/ Pelvis 2-3 Views IMPRESSION: No acute injury noted. [facility]
--- NOTE | 2024-10-10 16:45 | RAD_ITS ---
PROCEDURE: KNEE 4 OR MORE VIEWS 10/10/2024 REASON FOR EXAM: FALL, PAIN TECHNIQUE: KNEE 4 OR MORE VIEWS COMPARISON: 07/30/2023 FINDINGS: No fracture or dislocation. Large knee joint effusion. RAD/Knee 4 or More Views IMPRESSION: Large knee joint effusion, correlate for possible internal soft tissue injury. Reading Location: [place] [address]
--- NOTE | 2024-10-10 16:45 | RAD_ITS ---
PROCEDURE: SHOULDER MIN 2 VIEWS 10/10/2024 REASON FOR EXAM: PAIN, FALL TECHNIQUE: SHOULDER MIN 2 VIEWS COMPARISON: No FINDINGS: No fracture or dislocation. RAD/Shoulder min 2 Views IMPRESSION: No acute injury. Reading Location: [place] [address]
[2024-10-10 17:56] VITALS: PULSE 60; O2SAT 91
[2024-10-10 18:48] VITALS: BP 131/78; PULSE 81; RESP 14; TEMP 36.6; O2SAT 100
[2024-10-10 19:00] VITALS: BP 126/81; PULSE 73; RESP 14; O2SAT 98
--- NOTE | 2024-10-10 19:22 | ED.RN ---
this RN Called [facility] and spoke with Katherine, update provided on patient, POC, and ETA of transport @ 2000
== END 2024-10-10 20:41 | disposition home or self-care (01) ==
PROVIDERS: Emergency Provider Emergency Medicine; PCP Internal Medicine; Visit Provider Emergency Medicine
DX: S80.01XA Contusion of right knee, initial encounter (principal); Z68.41 Body mass index [BMI] 40.0-44.9, adult; E11.40 Type 2 diabetes mellitus with diabetic neuropathy, unspecified; I10 Essential (primary) hypertension; S40.011A Contusion of right shoulder, initial encounter; M25.551 Pain in right hip; W01.198A Fall on same level from slipping, tripping and stumbling with subsequent striking against other object, initial encounter; M54.50 Low back pain, unspecified; G89.29 Other chronic pain; Z99.3 Dependence on wheelchair; E66.9 Obesity, unspecified; F17.210 Nicotine dependence, cigarettes, uncomplicated; Z79.84 Long term (current) use of oral hypoglycemic drugs; Z79.899 Other long term (current) drug therapy
CPT/HCPCS: 73000; 73030; 73502; 73564; 96374; 99285; A4216; J2405

== ENCOUNTER 2024-10-16 18:05 | Emergency (ER) | payer MEDICARE, MEDICAID, SELFPAY ==
[2024-10-16 18:06] VITALS: PULSE 66; RESP 14; TEMP 36.7; O2SAT 96; BMI 40.6
[2024-10-16 18:10] VITALS: O2SAT 94
--- NOTE | 2024-10-16 18:32 | CT_ITS ---
PROCEDURE: BRAIN/HEAD WITHOUT CONTRAST 10/16/2024 REASON FOR EXAM: HEAD INJURY, FALL TECHNIQUE: BRAIN/HEAD WITHOUT CONTRAST Coronal and Sagittal reconstruction series were provided. One or more dose reduction techniques were used (e.g., Automated exposure control, adjustment of the mA and/or kV according to patient size, use of iterative reconstruction technique. COMPARISON: 10/23/2021 FINDINGS: There is no extra-axial or intra-axial intracranial hemorrhage. No mass effect or midline shift is seen. The ventricles, sulci, and cisterns are normal in size and shape for the patient's age. There is normal morley-white matter differentiation. The posterior fossa is grossly unremarkable. The skull is unremarkable. Visualized paranasal sinuses are clear. The mastoid air cells show normal translucency. CT/Brain/Head without Contrast IMPRESSION: No intracranial hemorrhage. No mass effect or midline shift. Reading [facility]
--- NOTE | 2024-10-16 18:32 | CT_ITS ---
PROCEDURE: CT SPINE CERVICAL WITHOUT CONTRAST 10/16/2024 REASON FOR EXAM: FALL TECHNIQUE: CT SPINE CERVICAL WITHOUT CONTRAST. Coronal and Sagittal reconstruction series were provided. One or more dose reduction techniques were used (e.g., Automated exposure control, adjustment of the mA and/or kV according to patient size, use of iterative reconstruction technique. RADIATION DOSE SUMMARY: DLP: 756.22 mGycm COMPARISON: None. FINDINGS: No acute fracture or subluxation. Likely positional straightening of the cervical lordosis. Minimal multilevel spondylotic changes, without evidence for substantial spinal canal or osseous neural foraminal narrowing. No prevertebral soft tissue swelling. Retropharyngeal course of the carotid arteries noted. CT/Spine Cervical without Contras IMPRESSION: No acute cervical spine fracture or malalignment. Reading Location: [id number]
--- NOTE | 2024-10-16 18:32 | EKG12_ITS ---
Test Reason : CP Blood Pressure : */* mmHG Vent. Rate : 66 BPM Atrial Rate : 66 BPM P-R Int : 196 ms QRS Dur : 84 ms QT Int : 426 ms P-R-T Axes : 41 47 45 degrees QTcB Int : 446 ms Normal sinus rhythm Normal ECG Confirmed by MARK GAUTAM, CHRIS ([id number]), fan mail editor IOANA PILLAI ([id number]) on 10/19/2024 1:07:20 PM Referred By: EUGENE/RACHEL Confirmed By: CHRIS FLORES MD
--- NOTE | 2024-10-16 18:36 | ED.VIS.FALL ---
HPI <JOE Yuan - Last Filed: 10/16/24 21:42> HPI - Fall History of Present Illness Chief Complaint: Fall Narrative Narrative: 59-year-old female with PMH of HTN, DM2, sick sinus syndrome status post pacemaker, COPD, ELOY, neuroendocrine tumor of stomach s/p resection presents after she fell out of her wheelchair this afternoon. She was smoking outside of her apartment and does not clearly remember falling but according to witnesses fell and hit her head. She called EMS and they placed her in a c-collar. She also reports she has had intermittent chest pain over the last few months and had some earlier today. It is not present now. No recent shortness of breath or cough. She is also had abdominal pain after eating for the last 2 to 3 weeks. She has had neuroendocrine tumor removal, cholecystectomy, appendectomy, and hysterectomy. PFSH <JOE Yuan - Last Filed: 10/16/24 21:42> [facility] Medical History Diarrhea Hypersomnolence Ambulatory dysfunction Pulmonary embolism Atrial fibrillation Diabetes Type 2 diabetes mellitus Blood glucose elevated Dark urine Anxiety Asthma Pacemaker Hypertension UTI (urinary tract infection) Pacemaker battery depletion History of tobacco use Hyperkalemia Knee sprain Post-menopausal Cancer Arthritis Walker as ambulation aid Uses wheelchair High cholesterol Back pain Injury of back Migraine headache Dietary restriction History of IBS Smoker CPAP (continuous positive airway pressure) dependence COPD (chronic obstructive pulmonary disease) Emphysema, unspecified Leg cramps History of pain when walking History of edema History of echocardiogram History of stress test Cardiology follow-up encounter History of CHF (congestive heart failure) Chest pain Osteopenia (~10/2022) Lumbar radiculopathy Debility Leukocytosis Health care maintenance Pain of left thumb Polypharmacy Encephalopathy CHI (closed head injury) Bacteria in urine Health care maintenance Muscle spasm Tobacco use disorder, continuous Encounter for screening for malignant neoplasm of lung in current smoker with 30 pack year history or greater Osteoarthritis Greater trochanteric bursitis of left hip Infected dental carries Atherosclerotic heart disease of [place] coronary artery without angina pectoris Monomorphic ventricular tachycardia Hyperlipidemia Intermittent palpitations ELOY (obstructive sleep apnea) COPD (chronic obstructive pulmonary disease) Polycythemia Primary malignant neuroendocrine tumor of stomach Sacral contusion Low back strain Anxiety and depression Hypothyroidism GERD (gastroesophageal reflux disease) PTSD (post-traumatic stress disorder) Vitamin D deficiency Neuropathy Anemia Essential (primary) hypertension Neuroendocrine neoplasm of stomach Sick sinus syndrome Sinus pause Chronic lower back pain Chronic pain syndrome Tobacco dependence syndrome Familial combined hyperlipidemia Obesity Home Medications ?Medication ?Instructions ?Recorded ?Last Taken ?Type duloxetine 60 mg capsule,delayed 120 mg PO DAILY 05/16/22 04/03/24 History release gabapentin 300 mg capsule 300 mg PO TID 05/16/22 04/03/24 History isosorbide mononitrate 60 mg 60 mg PO QAM #90 tabs 06/13/22 04/03/24 Rx tablet,extended release 24 hr walker (Ultra-Light Rollator misc) #1 ea 10/17/22 Unknown Rx potassium chloride 20 mEq 20 meq PO DAILY 01/30/23 04/03/24 History tablet,extended release(part/cryst) denosumab 60 mg/mL subcutaneous 60 mg subcut [id number] #1 mL 02/15/23 09/09/23 Rx syringe (Prolia) lisinopril 20 mg tablet 20 mg PO DAILY #90 tabs 02/20/23 04/03/24 Rx metoprolol tartrate 100 mg tablet 100 mg PO BID blood pressure, 04/26/23 04/03/24 Rx heart #180 tabs levothyroxine 25 mcg tablet 25 mcg PO DAILY 07/25/23 04/03/24 History magnesium oxide 400 mg (241.3 mg 400 mg PO DAILY 07/25/23 04/03/24 History magnesium) tablet fenofibrate 54 mg tablet 54 mg PO DAILY #90 tabs 07/31/23 04/03/24 Rx sumatriptan succinate 50 mg tablet See Rx Instructions PO .COMPLEX 08/09/23 Unknown Rx (Imitrex) #10 tabs ondansetron 8 mg disintegrating 8 mg PO Q6H PRN PRN nausea and 09/09/23 04/03/24 History tablet vomiting rosuvastatin 20 mg tablet 20 mg PO QHS 09/09/23 04/02/24 History trazodone 150 mg tablet 150 mg PO QHS 09/09/23 04/02/24 History trazodone 50 mg tablet 50 mg PO QHS 09/09/23 04/02/24 History cyclobenzaprine 10 mg tablet 10 mg PO BID PRN muscle spasm #180 10/29/23 04/03/24 Rx tabs amlodipine 5 mg tablet 5 mg PO BID #60 tabs 02/05/24 04/03/24 Rx buspirone 15 mg tablet 15 mg PO BID 04/03/24 04/03/24 History buspirone 5 mg tablet 5 mg PO BID 04/03/24 Unknown History glimepiride 2 mg tablet 2 mg PO BID #60 tabs 04/20/24 Unknown Rx blood sugar diagnostic (FreeStyle #100 ea 04/21/24 Unknown Rx Lite Strips) blood-glucose meter (FreeStyle #1 ea 04/21/24 Unknown Rx Lite Meter kit) lancets 28 gauge (FreeStyle #200 ea 04/21/24 Unknown Rx Lancets) oxycodone-acetaminophen 5 mg-325 1 tab PO Q8H PRN pain 3 days #10 05/04/24 Unknown Rx mg tablet (Percocet) tabs apixaban 5 mg tablet (Eliquis) 5 mg PO BID #180 tabs 05/05/24 Unknown Rx bed rail #1 ea 05/06/24 Unknown Rx clonazepam 0.5 mg tablet 0.5 mg PO 4X/DAY 05/12/24 Unknown History guaifenesin 100 mg/5 mL oral 400 mg PO Q4H 05/12/24 Unknown History liquid (Adult Tussin Chest Congestion) naloxone 4 mg/actuation nasal spray 4 mg intranasal Q3M PRN opioid 05/12/24 Unknown History overdose Wheelchair with leg rest / lifts #1 ea 06/26/24 Unknown Rx pantoprazole 40 mg tablet,delayed 40 mg PO QDAY #90 tabs 09/10/24 Unknown Rx release (Protonix) diclofenac sodium 1 % topical gel 1 ea topical 4X/DAY 10/10/24 Unknown History menthol 4 % topical gel (Cold 1 applic topical TID PRN pain 10/10/24 Unknown History Therapy (menthol)) cephalexin 500 mg capsule 500 mg PO Q12 #14 CAPSULES 10/16/24 Unknown Rx Allergy/AdvReac Type Severity Reaction Status Date / Time latex Allergy Intermediate skin Verified 10/16/24 18:06 irritation aspirin AdvReac Severe Nausea/Vom/ Verified 10/16/24 18:06 Diarrhea erythromycin base AdvReac Severe Vomiting,di Verified 10/16/24 18:06 (Erythromycin Base) arrhea NSAIDS (Non-Steroidal AdvReac Severe Vomiting,di Verified 10/16/24 18:06 Anti-Inflamma arrhea Family History Daughter Multiple sclerosis Father CAD (coronary artery disease) Heart disease Multiple sclerosis Grandfather Heart disease Uncle Heart disease Aunt No problems noted. Sister Colon cancer Mother Hypertension Surgical History Squamous cell carcinoma History of lumbar fusion History of esophagogastroduodenoscopy (EGD) Status post insertion of spinal cord stimulator History of left heart catheterization (08/17/21) History of colonoscopy Presence of permanent cardiac pacemaker (2013) History of resection of stomach Hx of cholecystectomy History of elbow surgery History of hysterectomy History of appendectomy History of laparotomy history excision neuroendocrine tumor Social History household members: none housing: assisted living facility current occupational status: unemployed Smoking Status: Current some day smoker tobacco type: cigarettes Tobacco: How many years used: 30 how long ago did patient quit smoking: A few months ago second hand exposure: Yes alcohol intake: never substance use type: does not use caffeine: Yes Type: carbonated beverages Number of servings: 1 and coffee Number of servings: 2 what type of physical activity do you participate in: none ivania/pentecostal: None seatbelt use: always do you feel safe at home: Yes ROS <JOE Yuan - Last Filed: 10/16/24 21:42> ROS ED ROS Narrative Constitutional: Negative for fever, chills, malaise. CVS: Positive for chest pain. Respiratory: Negative for shortness of breath, cough. GI: Positive for chronic abdominal pain. Neuro: Negative for headache, motor/sensory dysfunction. EXAM <JOE Yuan - Last Filed: 10/16/24 21:42> Physical Exam Narrative Exam Narrative: CONST: Patient sitting in no acute distress. EYES: Normal inspection. PERRL, EOMI. HEAD: Normocephalic atraumatic, no raccoon eyes or Corral sign, no nasal septal hematoma, no hemotympanum. NECK: C-collar on. Lower midline tenderness without step-offs or crepitus. RESP: No respiratory distress, CTAB. Chest wall nontender. CVS: Regular rate and rhythm, no murmur, no gallop. ABD: Soft and nontender, no guarding or rebound, nondistended. Back: Normal inspection, slight midline thoracic tenderness without step-offs, no lumbar tenderness, old midline lumbar surgical scar. SKIN: Color normal, no rash, warm, dry, intact. EXTREMITIES: Normal appearance, full range of motion, no bony tenderness to the upper extremities, 2+ radial pulses. Moving both lower extremities, no shortening or rotation, tenderness of the right mid tibia without external signs of trauma. 2+ DP pulses. NEURO: Alert and answering questions appropriately. PSYCH: Normal affect. Const Vital Signs: 10/16/24 18:06 10/16/24 18:10 10/16/24 19:11 Temperature 98.1 F Temperature Source Oral Pulse Rate 66 68 Respiratory Rate 14 14 Respiratory Effort Normal Respiratory Depth Normal Respiratory Pattern Normal Blood Pressure 98/74 Blood Pressure Mean 82 Pulse Ox 96 94 97 Oxygen Delivery Method Room Air Room Air 10/16/24 19:33 10/16/24 22:00 10/16/24 22:01 Temperature 98.1 F Temperature Source Pulse Rate 64 70 70 Respiratory Rate 17 17 Respiratory Effort Respiratory Depth Respiratory Pattern Blood Pressure 128/73 H 120/77 120/77 Blood Pressure Mean 91 91 91 Pulse Ox 96 94 94 Oxygen Delivery Method Room Air Room Air <Dr. Guille Dill DO - Last Filed: 10/17/24 00:16> Physical Exam Const Vital Signs: 10/16/24 18:06 10/16/24 18:10 10/16/24 19:11 Temperature 98.1 F Temperature Source Oral Pulse Rate 66 68 Respiratory Rate 14 14 Respiratory Effort Normal Respiratory Depth Normal Respiratory Pattern Normal Blood Pressure 98/74 Blood Pressure Mean 82 Pulse Ox 96 94 97 Oxygen Delivery Method Room Air Room Air 10/16/24 19:33 10/16/24 22:00 10/16/24 22:01 Temperature 98.1 F Temperature Source Pulse Rate 64 70 70 Respiratory Rate 17 17 Respiratory Effort Respiratory Depth Respiratory Pattern Blood Pressure 128/73 H 120/77 120/77 Blood Pressure Mean 91 91 91 Pulse Ox 96 94 94 Oxygen Delivery Method Room Air Room Air MDM <Shwetha Chun PA - Last Filed: 10/16/24 21:42> MDM MDM Narrative Medical decision making narrative: 59-year-old female fell out of her wheel chair and struck her head. She is awake and alert but a poor informant and does not recall if this was mechanical or if she had preceding symptoms. She is on a blood thinner for A-fib. She says it is 15. Vital stable. She has no external signs of injury on exam. C-collar is in place from EMS. She is tender over the cervical and thoracic spine without focal tenderness or step-offs and no signs of external trauma. Normal heart and lung examination. She is moving all extremities and neurovascular intact. She reports pain over the right tib-fib without signs of trauma. Since she did not have a clear history of why she fell larger workup was undertaken. CT scans of the brain, C and T-spine are negative. C-collar was removed. X-rays of the chest, pelvis and sacrum, and right tib-fib are all negative. Labs overall are unremarkable, creatinine 1.62 is within her baseline, glucose 152 consistent with diabetes. UA has signs of early UTI and was sent for culture and treated with Keflex. EKG is nonischemic and troponin x 2 negative. Pacemaker interrogation shows no acute events. Initially she had received IV morphine and Zofran for pain, now after going over all results she is ambulatory, will ice and take Tylenol as needed. She was given return precautions and discharged in stable condition. History & Record Review Discussion w/independent historian: EMS personnel and Patient Additional record(s) reviewed:: Prior ED visit and Prior labs Lab Data Attestation: I reviewed the patient's lab results. Labs: Laboratory Results - last 24 hr 10/16/24 10/16/24 18:35 20:35 WBC 11.5 H RBC 4.70 Hgb 13.8 Hct 42.8 MCV 91.1 MCH 29.4 MCHC 32.2 RDW Std Deviation 48.4 H RDW Coeff of Ross 14.5 Plt Count 262 MPV 10.2 Immature Gran % (Auto) 0.700 Neut % (Auto) 54.5 Lymph % (Auto) 36.5 [place] % (Auto) 5.5 Eos % (Auto) 2.4 Baso % (Auto) 0.4 Absolute Neuts (auto) 6.2 Absolute Lymphs (auto) 4.18 Nucleated RBC % 0 Sodium 139 Potassium 4.3 Chloride 103 Carbon Dioxide 22.9 Anion Gap 13 BUN 25 H Creatinine 1.62 H Estim Creat Clear Calc 41.53 L Est GFR (MDRD) Non-Af 36 L BUN/Creatinine Ratio 15.4 Glucose 152 H Calcium 9.7 Total Bilirubin 0.19 AST 26 ALT 26 Alkaline Phosphatase 85 Troponin T High Sens 7 Troponin T Hi Sens 2 Hr 7 Total Protein 7.7 Albumin 4.3 Globulin 3.4 Albumin/Globulin Ratio 1.3 Lipase 30 Urine Color Yellow Urine Clarity Sl. Cloudy Urine pH 5.0 Ur Specific [place] 1.015 Urine Protein 30 H Urine Glucose (UA) Normal Urine Ketones Negative Urine Occult Blood Negative Urine Nitrite Negative Urine Bilirubin Negative Urine Urobilinogen Normal Ur Leukocyte Esterase 25 H Urine RBC 0-5 SEEN Urine WBC 5-10 SEEN Ur Squamous Epith Cells 0-5 SEEN Urine Bacteria 1+ Urine Mucus 0 SEEN Urine Yeast RARE Radiography Diagnostic Testing: Clinical Impression(s) from Imaging Studies Brain CT 10/16/24 18:32 IMPRESSION: No intracranial hemorrhage. No mass effect or midline shift. Reading Location: [facility] Cervical Spine CT 10/16/24 18:32 IMPRESSION: No acute cervical spine fracture or malalignment. Reading Location: [facility] Thoracic Spine CT 10/16/24 18:40 IMPRESSION: 1. No acute thoracic spine fracture or traumatic subluxation. 2. Redemonstrated chronic deformity of the T8 vertebral body. 3. Mild kyphosis and diffuse degenerate changes of the thoracic spine Reading Location: [facility] Tibia/Fibula X-Ray 10/16/24 18:46 IMPRESSION: No acute fractures or dislocations. Moderate degenerate changes of the right knee and ankle. Reading Location: [facility] Pelvis X-Ray 10/16/24 19:47 IMPRESSION: No evidence of acute fracture or dislocation. Chronic/degenerative changes as above. Reading Location: [facility] Sacrum and Coccyx X-Ray 10/16/24 19:47 IMPRESSION: No evidence of acute fracture or dislocation. Chronic/degenerative changes as above. Reading Location: [facility] ED attending interpretation 1 view chest x-ray shows normal heart size, no evidence of displaced rib fracture or pneumothorax. ED attending interpretation of right tibia/fibula shows no fracture or dislocation. ED attending interpretation of pelvis x-ray shows no fracture or dislocation. ED attending interpretation of sacrum and coccyx shows no fracture. EKG Initial EKG: Attestation: I personally reviewed and interpreted this EKG as follows: Interpretation: Sinus Rhythm and No Acute Injury Pattern Comments: Normal sinus rhythm at 66 bpm Normal intervals, no acute ischemic changes <Dr. Guille Dill, DO - Last Filed: 10/17/24 00:16> [facility] MDM Narrative Medical decision making narrative: 59-year-old female fell out of her wheel chair and struck her head. She is awake and alert but a poor informant and does not recall if this was mechanical or if she had preceding symptoms. She is on a blood thinner for A-fib. She says it is 15. Vital stable. She has no external signs of injury on exam. C-collar is in place from EMS. She is tender over the cervical and thoracic spine without focal tenderness or step-offs and no signs of external trauma. Normal heart and lung examination. She is moving all extremities and neurovascular intact. She reports pain over the right tib-fib without signs of trauma. Since she did not have a clear history of why she fell larger workup was undertaken. CT scans of the brain, C and T-spine are negative. C-collar was removed. X-rays of the chest, pelvis and sacrum, and right tib-fib are all negative. Labs overall are unremarkable, creatinine 1.62 is within her baseline, glucose 152 consistent with diabetes. UA has signs of early UTI and was sent for culture and treated with Keflex. EKG is nonischemic and troponin x 2 negative. Pacemaker interrogation shows no acute events. Initially she had received IV morphine and Zofran for pain, now after going over all results she is ambulatory, will ice and take Tylenol as needed. She was given return precautions and discharged in stable condition. Supervisory Physician Note Patient was seen and examined with the Advanced Practice Provider. Nursing notes and vital signs have been reviewed. Pertinent old records have been reviewed. I agree with the essential elements of the MACK's history, physical exam, assessment, and plan. The differential diagnosis and management options were discussed with the MACK. I participated in determining and agree with the management, procedures, final impression and disposition as documented. See changes noted by me. Please see addendum or separate note for any additional details. 59-year-old female with past medical history of HTN, HTN, sick sinus syndrome status post maker maker, COPD, ELOY presents for evaluation of fall out of wheelchair. Patient was smoking outside of her apartment into her wheelchair when she fell and hit her head. She does not clearly remember how she fell out of the wheelchair but does remember falling. She reports she had intermittent chest pain over the last few months and had some earlier today. Currently denying chest pain. She endorses pain with eating for the past several weeks. Not endorsing abdominal pain. Currently complaining of pain in her tailbone. Patient is on a blood thinner for A-fib. Gen: A&O x3, NAD Head: Normocephalic, atraumatic Eyes: No sclera icterus, conjunctiva clear, PERRL, EOMI ENT: TMs clear BL, moist mucous membranes, no swelling/lacerations/blood in the mouth or the nares, No nasal septal hematoma, no facial tenderness Neck: Trachea midline, No JVD, c-collar in place CV: RRR, no murmurs, no chest wall TTP Resp: Lungs CTA BL, no w/r/c GI: Abd soft, non-distended, non-tender, no r/r/g Musc: Full ROM, no deformity, no spinal TTP, mild tenderness to palpation of the bilateral paraspinal musculature of the thoracic spine, no jorge alberto step-offs, tender to palpation around the sacrum and bilateral buttocks, DP, PT, radial pulses +2 bilaterally, tenderness to palpation of the right mid tibia without signs of trauma Skin: Warm, dry, intact Neuro: Alert, oriented, grossly intact, sensation intact, GCS 15 Psych: Cooperative, appropriate mood and affect EKG shows normal sinus rhythm with a heart rate of 66. No acute ischemic changes. X-rays without any acute traumatic injury. CT imaging without any acute traumatic injury. CBC with mild leukocytosis 11.5. No anemia. CMP with baseline CKD. No transaminitis. Lipase unremarkable. Troponin unremarkable x 2. UA positive for UTI. Urine culture sent. Will treat with Keflex. Patient stable to discharge home. Follow-up with PCP. Impression: 1. Fall out of wheelchair 2. UTI 3. Closed head injury 4. Contusion Lab Data Labs: Laboratory Results - last 24 hr 10/16/24 10/16/24 18:35 20:35 WBC 11.5 H RBC 4.70 Hgb 13.8 Hct 42.8 MCV 91.1 MCH 29.4 MCHC 32.2 RDW Std Deviation 48.4 H RDW Coeff of Ross 14.5 Plt Count 262 MPV 10.2 Immature Gran % (Auto) 0.700 Neut % (Auto) 54.5 Lymph % (Auto) 36.5 [place] % (Auto) 5.5 Eos % (Auto) 2.4 Baso % (Auto) 0.4 Absolute Neuts (auto) 6.2 Absolute Lymphs (auto) 4.18 Nucleated RBC % 0 Sodium 139 Potassium 4.3 Chloride 103 Carbon Dioxide 22.9 Anion Gap 13 BUN 25 H Creatinine 1.62 H Estim Creat Clear Calc 41.53 L Est GFR (MDRD) Non-Af 36 L BUN/Creatinine Ratio 15.4 Glucose 152 H Calcium 9.7 Total Bilirubin 0.19 AST 26 ALT 26 Alkaline Phosphatase 85 Troponin T High Sens 7 Troponin T Hi Sens 2 Hr 7 Total Protein 7.7 Albumin 4.3 Globulin 3.4 Albumin/Globulin Ratio 1.3 Lipase 30 Urine Color Yellow Urine Clarity Sl. Cloudy Urine pH 5.0 Ur Specific [place] 1.015 Urine Protein 30 H Urine Glucose (UA) Normal Urine Ketones Negative Urine Occult Blood Negative Urine Nitrite Negative Urine Bilirubin Negative Urine Urobilinogen Normal Ur Leukocyte Esterase 25 H Urine RBC 0-5 SEEN Urine WBC 5-10 SEEN Ur Squamous Epith Cells 0-5 SEEN Urine Bacteria 1+ Urine Mucus 0 SEEN Urine Yeast RARE Radiography Diagnostic Testing: Clinical Impression(s) from Imaging Studies Brain CT 10/16/24 18:32 IMPRESSION: No intracranial hemorrhage. No mass effect or midline shift. [facility] Cervical Spine CT 10/16/24 18:32 IMPRESSION: No acute cervical spine fracture or malalignment. Reading Location: [facility] Thoracic Spine CT 10/16/24 18:40 IMPRESSION: 1. No acute thoracic spine fracture or traumatic subluxation. 2. Redemonstrated chronic deformity of the T8 vertebral body. 3. Mild kyphosis and diffuse degenerate changes of the thoracic spine Reading Location: [facility] Tibia/Fibula X-Ray 10/16/24 18:46 IMPRESSION: No acute fractures or dislocations. Moderate degenerate changes of the right knee and ankle. Reading Location: [facility] Pelvis X-Ray 10/16/24 19:47 IMPRESSION: No evidence of acute fracture or dislocation. Chronic/degenerative changes as above. Reading Location: [facility] Sacrum and Coccyx X-Ray 10/16/24 19:47 IMPRESSION: No evidence of acute fracture or dislocation. Chronic/degenerative changes as above. Reading Location: [facility] Discharge Plan Triage Chief Complaint: Fall ED Midlevel Provider: Shwetha Chun ED Provider: Guille Dill Dx/Rx/DC Orders Clinical Impression: Fall, UTI (urinary tract infection), Closed head injury, Chronic anticoagulation, Back pain Instructions: UTIs, ED Head Injury (Adult) Prescriptions: New cephalexin 500 mg capsule 500 mg PO Q12 Qty: 14 0RF No Action duloxetine 60 mg capsule,delayed release(DR/EC) 120 mg PO DAILY Rx Instructions: rx by pallative care gabapentin 300 mg capsule 300 mg PO TID Patient Comments: TAKE 1 CAPSULE BY MOUTH THREE TIMES A DAY trazodone 150 mg tablet 150 mg PO QHS Rx Instructions: Take with 50 mg tablet to = 200 mg qhs potassium chloride 20 mEq tablet,ER particles/crystals 20 meq PO DAILY trazodone 50 mg tablet 50 mg PO QHS Rx Instructions: Take with 150 mg tablet to = 200 mg qhs rosuvastatin 20 mg tablet 20 mg PO QHS magnesium oxide 400 mg (241.3 mg magnesium) tablet 400 mg PO DAILY levothyroxine 25 mcg tablet 25 mcg PO DAILY Rx Instructions: TAKE ONE TABLET BY MOUTH DAILY FOR THYROID ondansetron 8 mg tablet,disintegrating 8 mg PO Q6H PRN PRN (Reason: nausea and vomiting) Rx Instructions: TAKE ONE TABLET BY MOUTH EVERY 6 HOURS NEEDED FOR NAUSEA AND VOMITING buspirone 5 mg tablet 5 mg PO BID Rx Instructions: WITH 15MG FOR TOTAL DAILY DOSE OF 20MG buspirone 15 mg tablet 15 mg PO BID Rx Instructions: WITH 5MG FOR TOTAL DAILY DOSE OF 20MG oxycodone-acetaminophen [Percocet] 5-325 mg tablet 1 tab PO Q8H PRN (Reason: pain) 3 Days Qty: 10 0RF clonazepam 0.5 mg tablet 0.5 mg PO 4X/DAY Patient Comments: [NO ORIGINAL SIG] naloxone 4 mg/actuation spray,non-aerosol 4 mg intranasal Q3M PRN (Reason: opioid overdose) Rx Instructions: spray 1 dose into ONE nostril; alternate nostrils w each dose until help arrives guaifenesin [Adult Tussin Chest Congestion] 100 mg/5 mL liquid 400 mg PO Q4H Cold Therapy (menthol) 4 % gel 1 applic topical TID PRN (Reason: pain) diclofenac sodium 1 % gel 1 ea topical 4X/DAY isosorbide mononitrate 60 mg tablet extended release 24 hr 60 mg PO QAM Qty: 90 3RF (DME) Ultra-Light Rollator Misc See Rx Instructions .Route Qty: 1 0RF Rx Instructions: As directed Prolia 60 mg/mL syringe 60 mg subcut [id number] Qty: 1 2RF Patient Comments: due for injection lisinopril 20 mg tablet 20 mg PO DAILY Qty: 90 1RF metoprolol tartrate 100 mg tablet 100 mg PO BID Qty: 180 1RF Rx Instructions: TAKE 1 TABLET BY MOUTH TWICE A DAY FOR BLOOD PRESSURE/HEART fenofibrate 54 mg tablet 54 mg PO DAILY Qty: 90 1RF sumatriptan succinate [Imitrex] 50 mg tablet See Rx Instructions PO .COMPLEX Qty: 10 3RF Rx Instructions: take 1 tab at onset of headache; if no relief may repeat 1 tab after at least 2 hrs; max = 4 tabs/24 hr PO cyclobenzaprine 10 mg tablet 10 mg PO BID PRN (Reason: muscle spasm) Qty: 180 1RF amlodipine 5 mg tablet 5 mg PO BID Qty: 60 11RF glimepiride 2 mg tablet 2 mg PO BID Qty: 60 2RF (DME) FreeStyle Lite Strips Strip See Rx Instructions .MEDSUPPLY Qty: 100 3RF Rx Instructions: check blood glucose daily for type 2 DM (DME) blood-glucose meter [FreeStyle Lite Meter] Kit See Rx Instructions .MEDSUPPLY Qty: 1 0RF Rx Instructions: As directed, check blood glucose daily for type 2 DM (DME) lancets [FreeStyle Lancets] 28 gauge misc See Rx Instructions .MEDSUPPLY Qty: 200 3RF Rx Instructions: check blood glucose daily for type 2 DM Eliquis 5 mg tablet 5 mg PO BID Qty: 180 1RF Rx Instructions: Start after completing starter pack (DME) bed rail See Rx Instructions .Route .MEDSUPPLY Qty: 1 0RF Rx Instructions: As directed (DME) Wheelchair with leg rest / lifts See Rx Instructions .Route .MEDSUPPLY Qty: 1 0RF Rx Instructions: For daily use / mobility purposes pantoprazole [Protonix] 40 mg tablet,delayed release (DR/EC) 40 mg PO QDAY Qty: 90 1RF Primary Care Provider: Charla Wadsworth Referrals: Charla Wadsworth MD [Primary Care Provider] - Activity Restrictions/Additional Instructions: We did extensive imaging including CAT scans of your head, neck, mid back which all show no broken bones or internal injuries. The x-rays are also negative of your lower back, pelvis, and right reinoso. I recommend Tylenol as needed for pain every 6 hours and ice and 20-minute sessions throughout the day. There are signs of urinary tract infection so I prescribed an antibiotic. Print Language: Greek Disposition Disposition: Home, Self Care Discharge Date/Time: 10/16/24 22:58
--- NOTE | 2024-10-16 18:40 | CT_ITS ---
PROCEDURE: SPINE THORACIC WITHOUT CONTRAS 10/16/2024 REASON FOR EXAM: PAIN TECHNIQUE: SPINE THORACIC WITHOUT CONTRAS Coronal and Sagittal reconstruction series were provided. One or more dose reduction techniques were used (e.g., Automated exposure control, adjustment of the mA and/or kV according to patient size, use of iterative reconstruction technique). RADIATION DOSE SUMMARY: CTDlvol: 50.0 mGy DLP: 2077.8 mGycm COMPARISON: Thoracic spine x-ray 06/14/2019 FINDINGS: Alignment: Mild kyphosis of the upper thoracic spine. No traumatic subluxation or spondylolisthesis. Bones: Normal thoracic vertebral heights. Chronic deformity of the T8 vertebral body. Mild diffuse degenerative changes. No acute fracture. No suspicious lytic or blastic lesion. Soft Tissues: Unremarkable. No perivertebral soft tissue thickening. Other: The visualized lung hairston are clear. Spinal stimulator device noted. CT/Spine Thoracic without Contras IMPRESSION: 1. No acute thoracic spine fracture or traumatic subluxation. 2. Redemonstrated chronic deformity of the T8 vertebral body. 3. Mild kyphosis and diffuse degenerate changes of the thoracic spine Reading Location: [facility]
--- OUTSIDE RECORDS SUMMARY | 2024-10-16 18:41 | XMS RPT_ITS | CCD ---
Author Organization [facility] Care Team Providers [facility] Aide Name Role Phone Clarissa Jose MD Unavailable Charla Wadsworth Primary Care Provider Provider, External Unavailable Deepika Lopes Unavailable Unavailable Dev Bridges Unavailable GEE MERHCANT MD Consulting Unavailab NATALY Teague MD Attending Unavailable NATALY VASQUEZ MD Primary Care Unavailable NATALY VASQUEZ MD Admitting Unavailable PROVIDER, UNKNOWN Consulting Unavailable Dr. Charla Wadsworth Primary Care Provider Dr. Samuel Keys Attending Provider Dr. Samuel Keys Referring Provider Dr. Charla Wadsworth Referring Provider [phone] Dr. Charla Wadsworth Primary Care Provider [phone] Dr. Samuel Keys Attending Provider Dr. Charla Wadsworth Primary Care Provider Dr. Virgil Daniels Emergency Provider Dr. Laura Alberto Admit Provider Dr. Laura Alberto Attending Provider Dr. Laura Alberto Other Provider Dr. Alexander Krueger Attending Provider Dr. Alexander Krueger Other Provider Dr. Charla Wadsworth Attending Provider Dr. Charla Wadsworth Referring Provider [phone] Shadi VP SOFTWARE SUPPORT, VP SOFTWARE SUPPORT-C Candy Attending Provider Shadi VP SOFTWARE SUPPORT, VP SOFTWARE SUPPORT-C Candy Referring Provider Dr. Raegan Noel Attending Provider Dr. Charla Wadsworth Primary Care Provider [phone] Dr. Charla Wadsworth Referring Provider [phone] Dr. Samuel Keys Attending Provider [phone] Dr. Charla Wadsworth Attending Provider [phone] Dr. Charla Wadsworth Primary Care [...] Attending Provider Dr. Samuel Keys Referring Provider [phone] EDWIN Cr Attending Provider [phone] Dr. Charla Wadsworth Primary Care Provider [phone] Dr. Samuel Keys Attending Provider [phone] Dr. Charla Wadsworth Referring Provider [phone] Dr. Charla Wadsworth MD Primary Care Provider Ananth GAUTAM, Dr. Dunham Attending Provider [phone] Ananth GAUTAM, Dr. Dunham Referring Provider [phone] Ludmila GAUTAM, Dr. Baker Attending Provider Martina GAUTAM, Dr. Phillips Attending Provider Martina GAUTAM, Dr. Phillips Referring Provider Le MANCINI, Dr. Rojas Emergency Provider Pa GAUTAM, Dr. Rivers Admit Provider Pa GAUTAM, Dr. Rivers Other Provider Sherif GAUTAM, Dr. Watts Attending Provider Unavaila ble Sherif GAUTAM, Dr. Watts Other Provider Unavailable Oralia GAUTAM, Gigi Attending Provider Oralia GAUTAM, Gigi Emergency Provider Dr. Gregory Xie DO Attending Provider Dr. Gregory Xie DO Emergency Provider Román GAUTAM, Dr. Herbert Attending Provider Jcarlos Agudelo Referring Provider Jae MANCINI, Dr. Mosqueda Emergency Provider Ananth GAUTAM, Dr. Dunham Primary Care Provider Ananth GAUTAM, Dr. Dunham Attending Provider [phone] Ananth GAUTAM, Dr. Dunham Referring Provider Dr. Panda Rowe DO Attending Provider Imelda Hernandez Attending Provider Unavailable Kareen Pollock Attending Provider [phone] Leeann DU-CKareen Referring Provider [phone] Ananth GAUTAM, Dr. Dunham Primary Care Provider Ludmila GAUTAM, Dr. Baker Attending Provider Jeremiah GAUTAM, Dr. Herman Emergency Provider MAYUR GAUTAM, DR FLYNN Primary Care MD SHARON Bernard Attending Unavailable Flaquito MANCINI, Dr. Parikh Referring Provider Flaquito MANCINI, Dr. Parikh Emergency Provider Charla Wadsworth MD Primary Care Provider Jeremiah GAUTAM, Dr. Herman Attending Provider Dr. Kati Huddleston DO Attending Provider Dr. Chaim Maurer DO Emergency Provider MATTO, NACHO Referring Unavailable OLEGHE, EFEWONGBE B Primary Care Unavailable MATTO, NACHO Referring Unavailable OLEGHE, EFEWONGBE B Primary Care Unavailable FLAQUITO, REMUS A Referring Unavailable LYDIA ESTRELLA Admitting Unavaila ble CONRY, BUTCH Consulting Unavailable TANISHA, DILMA Attending Unavailable CONRY, BUTCH Referring Unavailable OLEGHE, EFEWONGBE B Primary Care Unavailable CONRY, BUTCH T Attending Unavailable OLEGHE, EFEWONGBE B Primary Care Unavailable Ananth GAUTAM, Dr. Dunham Primary Care Provider Ananth GAUTAM, Dr. Dunham Referring Provider [phone] Gigi Barton MD Attending Provider Gigi Barton MD Emergency Provider Dr. Charla Wadsworth MD Attending Provider [phone] Dr. Chaim Maurer DO Attending Provider Dr. Charla Wadsworth MD Primary Care Provider Dr. Samuel Keys MD Attending Provider Dr. Keon France MD Attending Provider Alonzo DU-Janeth Ayala Attending Provider [phone] Dr. Charla Wadsworth MD Primary Care Provider Leeann DU-Kareen Ayala Attending Provider Leeann DU-CKareen Referring Provider [phone] Ananth GAUTAM, Dr. Dunham Referring Provider [phone] Ludmila GAUTAM, Dr. Baker Attending Provider Oleghe, Efewongbe Attending Unavailable Oleghe, Efewongbe Referring Unavailable Oleghe, Efewongbe Primary Care Unavailable Ungur, Remus Attending Unavailable Ungur, Remus Referring Unavailable Oleghe, Efewongbe Primary Care Unavailable Tita Winn Admitting Unavailable Oleghe, Efewongbe Primary Care Unavailable Autumn Gorman Attending Unavailable Tita Winn Consulting Unavailable Leeann VP SOFTWARE SUPPORT, Kareen Attending Unavailable Kareen Bradshaw NP Referring Unavailable Oleghe, Efewongbe Primary Care Unavailable Oleghe, Efewongbe Primary Care Unavailable Crystal Lujan Attending Unavailable Oleghe, Efewongbe Primary Care Unavailable Samuel Keys Attending Unavailable Chaim Maurer Attending Unavailable Oleghe, Efewongbe Primary Care Unavailable Oleghe, Efewongbe Primary Care Unavailable Virgil Daniels Attending Unavailable Panda Rowe Attending Unavailable Oleghe, Efewongbe Primary Care Unavailable Panda Rowe Attending Unavailable Oleghe, Efewongbe Primary Care Unavailable Gigi Barton Attending Unavailable Oleghe, Efewongbe Primary Care Unavailable Isckarus Mansour Referring Unavailable IsckarusDgour Attending Unavailable Oleghe, Efewongbe Primary Care Unavailable Shadi VP SOFTWARE SUPPORT, Candy Consulting Unavailable Oleghe, Efewongbe Primary Care Unavailable Samuel Keys Attending Unavailable Maverick Keysril Referring Unavailable Oleghe, Efewongbe Primary Care Unavailable Alan Mack Attending Unavailable Jabour Vincgabi Referring Unavailable Oleghe, Efewongbe Primary Care Unavailable [place], Phyllis Referring Unavailable Phyllis Plummer Attending Unavailable Leeann VP SOFTWARE SUPPORT, Kareen Attending Unavailable Kareen Bradshaw NP Referring Unavailable Oleghe, Efewongbe Primary Care Unavailable Anastasiia VP SOFTWARE SUPPORTGautam Referring Unavailable Gautam Laurent NP Attending Unavailable Oleghe, Efewongbe Primary Care Unavailable Samuel Keys Attending Unavailable Oleghe, Efewongbe Primary Care Unavailable Oleghe, Efewongbe Attending Unavailable Oleghe, Efewongbe Referring Unavailable Oleghe, Efewongbe Primary Care Unavailable Ludmila, Samuel Attending Unavailable Oleghe, Efewongbe Primary Care Unavailable Oleghe, Efewongbe Referring Unavailable Ludmila, Samuel Attending Unavailable Oleghe, Efewongbe Primary Care Unavailable Oleghe, Efewongbe Attending Unavailable Oleghe, Efewongbe Referring Unavailable Oleghe, Efewongbe Primary Care Unavailable Oleghe, Efewongbe Referring Unavailable Leeann VP SOFTWARE SUPPORT, Kareen Attending Unavailable Oleghe, Efewongbe Primary Care Unavailable Shadi VP SOFTWARE SUPPORT, Candy Referring Unavailable Shadi VP SOFTWARE SUPPORT, Candy Attending Unavailable Oleghe, Efewongbe Primary Care Unavailable Oleghe, Efewongbe Primary Care Unavailable [place], [employer] [place] Attending Unavailable Oleghe, Efewongbe Referring Unavailable Oleghe, Efewongbe Primary Care Unavailable Ilya Cao Attending Unavailable Oleghe, Efewongbe Referring Unavailable Oleghe, Efewongbe Attending Unavailable Oleghe, Efewongbe Referring Unavailable Oleghe, Efewongbe Primary Care Unavailable Oleghe, Efewongbe Primary Care Unavailable [place], [employer] Attending Unavailable [place], [employer] [place] Consulting Unavailable Tita Winn Consulting Unavailable Tita Winn Admitting Unavailable Tita Winn Attending Unavailable Oleghe, Efewongbe Primary Care Unavailable Autumn Gorman Attending Unavailable Autumn Gorman Consulting Unavailable Keon France Attending Unavailable Oleghe, Efewongbe Primary Care Unavailable Jcarlos Garcia Referring Unavailable Leeann VP SOFTWARE SUPPORT, Kareen Referring Unavailable Keon France Attending Unavailable Oleghe, Efewongbe Primary Care Unavailable Leeann VP SOFTWARE SUPPORT, Kareen Attending Unavailable Oleghe, Efewongbe Primary Care Unavailable Oleghe, Efewongbe Referring Unavailable Oleghe, Efewongbe Primary Care Unavailable Anastasiia VP SOFTWARE SUPPORTGautam Attending Unavailable Oleghe, Efewongbe Primary Care Unavailable [place], [employer] Attending Unavailable Oleghe, Efewongbe Attending Unavailable Oleghe, Efewongbe Primary Care Unavailable Oleghe, Efewongbe Referring Unavailable Oleghe, Efewongbe Primary Care Unavailable Raegan Noel Attending Unavailable Oleghe, Efewongbe Referring Unavailable Oleghe, Efewongbe Primary Care Unavailable [place], [employer] Attending Unavailable Oleghe, Efewongbe Primary Care Unavailable [place], [employer] Attending Unavailable Oleghe, Efewongbe Referring Unavailable Oleghe, Efewongbe Primary Care Unavailable Imelda Hernandez Attending Unavailable Oleghe, Efewongbe Referring Unavailable Kareen Bradshaw NP Attending Unavailable Oleghe, Efewongbe Primary Care Unavailable Oleghe, Efewongbe Attending Unavailable Oleghe, Efewongbe Primary Care Unavailable Oleghe, Efewongbe Primary Care Unavailable Tyra DIAZ, Rosemarie Harding Attending Unavail able Ludmila, Samuel Consulting Unavailable [place], [employer] Referring Unavailable Ludmila, Samuel Attending Unavailable Oleghe, Efewongbe Primary Care Unavailable Oleghe, Efewongbe Primary Care Unavailable Janeth Rosado Attending Unavailable Oleghe, Efewongbe Referring Unavailable Oleghe, Efewongbe Primary Care Unavailable Ludmila, Samuel Attending Unavailable Oleghe, Efewongbe Primary Care Unavailable Keon Ramirez Attending Unavailable Kareen Bradshaw NP Referring Unavailable Kareen Bradshaw NP Attending Unavailable Oleghe, Efewongbe Primary Care Unavailable Oleghe, Efewongbe Attending Unavailable Oleghe, Efewongbe Primary Care Unavailable Oleghe, Efewongbe Referring Unavailable Gigi Barton Attending Unavailable Oleghe, Efewongbe Primary Care Unavailable Oleghe, Efewongbe Primary Care Unavailable Gregory Xie Attending Unavailable Oleghe, Efewongbe Attending Unavailable Oleghe, Efewongbe Primary Care Unavailable Oleghe, Efewongbe Referring Unavailable Daniels, Virgil Attending Unavailable Oleghe, Efewongbe Primary Care Unavailable Oleghe, Efewongbe Primary Care Unavailable [place], [employer] Attending Unavailable Allergies Allergy Classification Reported Allergen(s) Allergy Type Date of Onset Reaction(s) Facility Macrolides (antibiotic) (1 source) Erythromycin Drug Allergy [facility] Repository Unclassified (1 source) NSAID Drug allergy (disorder) [facility] Repository Unclassified (1 source) AUGMENTED BETAMETHASONE DIPROPIONATE Drug allergy (disorder) [facility] Rep[facility] (20 sources) Aspirin Drug Allergy 2 Nausea/Vom/Verónica rrhea [facility] (20 sources) Erythromycin Drug Allergy 5 Vomiting [facility] (20 sources) Latex; Translations: [LATEX] Allergy to substance 1 Other: See Comments [facility] (20 sources) NSAIDS (Non-Steroidal Anti-Inflamma; Translations: [NSAIDS (Non-Steroidal Anti-Inflamma] Propensity to adverse reactions 2 Vomiting,diarr hea [facility] (9 sources) Ibuprofen; Translations: [IBUPROFEN] Drug Allergy 5 GI Upset [facility] (9 sources) NSAIDs; Translations: [NSAIDS (NON-STEROIDAL ANTI-INFLAMMATORY DRUG)] Drug Allergy 4 Diarrhea, Vomiting [facility] (9 sources) Salicylate product; Translations: [SALICYLATES] Drug Allergy 5 GI Upset [facility] (2 sources) Erythromycin; Translations: [ERYTHROMYCIN] Drug Allergy 5 [facility] Other [place] [facility] (1 source) Aspirin Drug Allergy 5 [facility] Rep[facility] (1 source) Latex Drug allergy (disorder) 5 [facility] Rep[facility] (1 source) erythromycin base Drug allergy (disorder) 5 [facility] Rep[facility] Medications Current Medications Medication [...] 7.5 MG PO THREE TIMES A DAY 90 November 03, 2021 3:47pm December 03, 2021 [...] RANK Ligand Inhibitor Start: 02-07-2023 End: 02-15-2023 diclofenac sodium 0.01 mg/mg topical gel (20 sources) Nonsteroidal Anti-inflammatory Drug Start: 10-10-2024 Start: 08-05-2020 End: 09-09-2023 Start: 08-05-2020 apply 4 g topically once Diclo fenac Sodium Active 4 GM TOPICAL ONCE 100 August 05, 2020 12:00am apply to single knee, ankle, foot; for foot includes sole/toes/top of foot DULoxetine 60 mg delayed release oral capsule (20 sources) Serotonin and Norepinephrine Reuptake Inhibitor Start: 05-26-2020 End: 05-16-2022 Start: 05-26-2020 End: 05-16-2022 take 60 mg by mouth twice daily Duloxetine Discontinue d 60 MG PO TWICE A DAY May 26, 2020 12:00am May 16, 2022 9:02am rx by [facility] Start: 03-28-2015 End: 02-25-2020 Start: 12-16-2012 End: 04-02-2013 take 1 capsule by mo ut once daily DULoxetine (CYMBALTA) 60 mg capsule Take 60 mg by mouth once daily. Active fenofibrate 54 mg oral tablet (19 sources) Peroxisome Proliferator Receptor alpha Agonist Start: [...] 04-02-2013 take 1 capsule by mo uth four times daily gabapentin (NEURONTIN) 300 mg capsule Take 300 mg by mouth four times daily. Active glimepiride 2 mg oral tablet (19 sources) Sulfonylurea Start: 04-20-2024 guaiFENesin 20 mg/ml [...] Active magnesium oxide 400 mg oral tablet (12 sources) Start: 07-25-2023 pantoprazole 40 mg delayed r elease oral tablet (20 sources) Proton Pump Inhibitor Start: 09-10-2024 Start: 04-08-2017 End: 10-08-2018 Start: 04-08-2017 End: 08-22-2017 take 40 mg by mouth once daily Pantoprazole Discontinu ed 40 MG PO DAILY April 08, 2017 1:00am August 22, 2017 4:07pm rosuvastatin calcium 20 mg o ral tablet (20 sources) HMG-CoA Reductase Inhibitor Start: 09-09-2023 Start: 12-18-2019 End: 09-09-2023 SUMAtriptan 50 mg oral table t (19 sources) Serotonin-1b and Serotonin-1d Receptor Agonist Start: [...] 2022 12:00am As directed (20 sources) Start: 10-10-2024 Start: 10-02-2024 End: 10-10-2024 Start: 06-26-2024 Start: 06-04-2024 End: 06-26-2024 Start: [...] 16, 2012 12:00am December 17, 2012 12:23am [id number] 200 actuat albuter ol 0.09 mg/actuat metered dose inhaler (12 sources) beta2-Adrenergic Agonist Start: 04-05-2024 End: 05-12-2024 [...] 04-24-2014 cephalexin 500 mg oral capsu le (12 sources) Cephalosporin Antibacterial Start: 01-23-2024 End: 04-03-2024 chlorhexidine gluconate 40 m g/ml medicated liquid soap (20 sources) Start: 11-25-2023 End: 04-03-2024 cholecalciferol 1.25 mg oral capsule (20 sources) Vitamin D Start: 10-08-2017 End: 11-26-2018 Start: 10-08-2017 End: 11-26-2018 Cholecalciferol (Vitamin D3) Discontinued [address]22 UNIT PO TH October 08, 2017 12:00am November 26, 2018 2:58pm cholestyramine resin 4000 mg powder for oral suspension (20 sources) Bile Acid Sequestrant Start: 11-10-2019 End: 12-18-2019 ciprofloxacin 3 mg/ml / dexamethasone 1 mg/ml otic suspension (12 sources) Corticosteroid, Quinolone Antimicrobial Start: 08-27-2023 End: 11-14-2023 citalopram 40 mg oral tablet (20 sources) Serotonin Reuptake Inhibitor Start: 04-02-2013 End: 04-03-2013 clindamycin 150 mg oral caps ule (20 sources) Lincosamide Antibacterial Start: 01-13-2020 End: 02-25-2020 diazePAM 5 mg oral tablet (20 sources) Benzodiazepine Start: 12-16-2012 End: 12-17-2012 doxycycline monohydrate 100 mg oral capsule (12 sources) Tetracycline-class Drug Start: 04-05-2024 End: 04-20-2024 esomeprazole 40 mg delayed release oral capsule (20 [...] daily Hydrochlorothiazide Discontinued 25 MG PO DAILY 30 May 14, 2019 10:01am May 14, 2019 [...] 11-26-2018 menthol 0.04 mg/mg topical g el (12 sources) Start: 09-09-2023 End: 04-03-2024 methocarbamol 750 [...] 24 hr nicotine 0.292 mg/hr transdermal system (15 sources) Cholinergic Nicotinic Agonist Start: 01-30-2023 End: [...] 12-16-2012 End: 12-17-2012 Start: 12-16-2012 End: 12-17-2012 ondansetron 4 mg disintegrat ing oral tablet (20 sources) Serotonin-3 Receptor Antagonist Start: 07-23-2024 End: 10-10-2024 Start: 11-14-2021 End: 09-09-2023 Start: 11-03-2021 End: [...] 02, 2018 12:00am October 08, 2018 12:28pm penicillin v potassium 500 m g oral tablet (12 sources) Start: 04-15-2024 End: 05-12-2024 microencapsulated potassium [...] 2013 1:04pm predniSONE 20 mg oral tablet (12 sources) Start: 04-05-2024 End: 04-20-2024 promethazine hydrochloride [...] sources) Atypical Antipsychotic Start: 12-17-2012 End: 04-02-2013 salmon calcitonin 200 unt/actuat nasal spray (10 sources) Calcitonin Start: 06-29-2024 End: 10-10-2024 sucralfate 1000 mg oral tabl et (20 [...] general medical examinations] 03-26-2023 Episodic Anxiety disorders (20 sources) Mixed anxiety and depressive disorder; Translations: [...] Coronary atherosclerosis; Translations: [Atherosclerotic heart disease of [place] coronary artery without angina pectoris] Onset: 06-11-2024 [...] Translations: [Hypokalemia] 01-06-2021 Episodic Headache; including migraine (12 sources) Migraine; Translations: [Migraine, unspecified, not intractable, [...] aftercare (20 sources) Polypharmacy ; Translations: [Other medical terminologist (current) drug therapy] 11-03-2021 Episodic Other aftercare (4 sources) Other fci (current) drug therapy; Translations: [Long-term (current) use of other medications] Episodic Other and unspecified benign neoplasm (1 source) Neuroendocrine tumor; Translations: [Other malignant neuroendocrine tumors] Episodic Other bone disease and musculoskeletal deformities (1 source) Clavicle pain; Translations: [Other specified disorders of bone, shoulder] 10-10-2024 Episodic Other connective tissue disease (20 sources) [...] leg] 07-18-2020 Episodic Other connective tissue disease (20 sources) Pain in thumb ; Translations: [Pain in left finger(s)] 05-16-2022 Episodic Other connective tissue disease (1 source) Pain in left finger(s); Translations: [Pain in limb] 05-16-2022 Episodic Other connective tissue disease (12 sources) Pain in lower limb; Translations: [Pain [...] menstrual cycle] Onset: 07-28-2024 Episodic Other fractures (10 sources) Closed fracture thoracic vertebra; Translations: [Unspecified [...] injuries and conditions due to external causes (2 sources) Contusion of rib; Translations: [Other specified injuries of thorax, initial encounter] 01-18-2024 Episodic Other liver diseases (20 sources) Enzyme level - finding; Translations: [Transaminasemia] 12-20-2020 Episodic Other lower respiratory disease (20 sources) Hypoxia; Translations: [Hypoxemia] 04-13-2024 Episodic Other [...] [Encephalopathy, unspecified] Chronic Other nervous system disorders (20 sources) Chronic pain syndrome; Translations: [Chronic pain syndrome] 06-04-2024 Chronic Other nervous system disorders (6 sources) Thoracic myelopathy; Translations: [Other spondylosis with myelopathy, thoracic region] 07-07-2024 Chronic Other nervous system disorders (10 sources) Walking disability; Translations: [Difficulty in walking, [...] hip] 07-18-2020 Episodic Other non-traumatic joint disorders (17 sources) Effusion of right knee joint; Translations: [Effusion, right knee] 11-24-2022 Episodic Other nutritional; endocrine; and metabolic disorders (7 sources) Severe obesity; Translations: [Class 3 severe obesity in adult] Onset: 07-03-2024 07-03-2024 Chronic Other nutritional; endocrine; and metabolic disorders (8 sources) Body mass index 40+ - severely obese; Translations: [Obesity, Class III, BMI 40-49.9 (morbid obesity)] Onset: 07-03-2024 07-03-2024 Chronic Other skin disorders (12 sources) Mass of shoulder region; Translations: [Localized swelling, mass and lump, unspecified upper limb] 07-16-2023 Episodic Other skin disorders (12 sources) Skin lesion; Translations: [Disorder of the [...] apnea (adult)(pediatric)] 03-26-2023 Chronic Residual codes; unclassified (10 sources) Hypersomnia; Translations: [Hypersomnia, unspecified] 07-22-2024 Chronic Residual codes; unclassified (2 sources) Hypersomnia, unspecified; Translations: [Hypersomnia, unspecified] Onset: 07-22-2024 Chronic Residual codes; unclassified (1 source) Family history of cancer of colon; Translations: [Family history of colon cancer] Episodic Residual codes; unclassified (20 sources) Tobacco user; Translations: [Tobacco use] 12-20-2020 Episodic Residual codes; unclassified (12 sources) Peripheral edema; Translations: [Localized edema] 05-21-2024 [...] both lower extremities 08-05-2024 Urinary tract infections (13 sources) Urinary tract infectious disease; Translations: [Urinary [...] Episodic Other bone disease and musculoskeletal deformities (14 sources) Osteopenia; Translations: [Other specified disorders of [...] Onset: 11-25-2023 Episodic Phlebitis; thrombophlebitis and thromboembolism (13 sources) Deep venous thrombosis; Translations: [Acute embolism and thrombosis of unspecified deep veins of unspecified lower extremity] Onset: 05-13-2024 05-12-2024 Episodic Screening and history of mental health and substance abuse codes (13 sources) Tobacco use and exposure - finding; [...] Test Name Value Interpretation Reference Range Facility Clavicleon 10-10-2024 Clavicle Normal [facility] Emergency Department Summary on 10-10-2024 Emergency Department Summary Normal [facility] HIP, UNI W/ Pelvis 2-3 Views on 10-10-2024 HIP, UNI W/ Pelvis 2-3 Views Normal [facility] Knee 4 or More Viewson 10-10 Knee 4 or More Views Normal [facility] Shoulder min 2 Viewson 10-10 Shoulder min 2 Views Normal [facility] Internal Medicine Office Vis iton 10-02-2024 Internal Medicine Office Visit Normal [facility] [facility] RAMSES BRADSHAW ([id number]) 1965 F Date Time Provider Department 08[facility]10/[facility] During your visit today, we recorded the following information about you: Katrin Peng 08/10/2024 8:01 AM Signed I faxed order to [facility], however patient was released from them [...] Encounter Status:Closed by KATRIN PENG on 08/12/24 [facility] CNOVon 08-05-2024 [facility] RAMSES BRADSHAW ([id number]) 1965 F Date Time Provider Department 08/05/24 10:00 AM [facility] During your visit today, we recorded the following information about you: Weight Height 101.6 kg 1.575 m Vania Ladd MA 08/05/2024 11:04 PM Signed 58 y/o female presents to office to discuss MRI results of the cervical and thoracic spine. Butch Mays MD 08/05/2024 11:04 PM Signed Butch Mays MD Orthopaedic Spine Surgery [address] [place] [address], [address], [place] [address] FAX: [phone] Spine Surgery Outpatient Note Service Date: 08/05/2024 [...] Essential Hypertension Copd (Chronic Obstructive Pulmonary Disease) ([facility]) Controlled Type 2 Diabetes Mellitus Without Complication, Without Long-Term Current Use of Insulin ([facility]) History of Pulmonary Embolus (Pe) Atrial Fibrillation ([facility]) Hyperlipidemia Tobacco Use Disorder [place]oy (Obstructive Sleep Apnea) Heart Failure With Preserved Ejection Fraction ([facility]) Armani (Acute Kidney Injury) Obesity, Class III, BMI >= 40 PAST MEDICAL HISTORY Diagnosis Date Anxiety Atrial fibrillation ([facility]) 07/03/2024 CAD (coronary artery disease) 07/03/2024 Congestive heart failure ([facility]) 07/03/2024 Controlled type 2 diabetes mellitus without complication, without long-term current use of insulin ([facility]) 07/03/2024 COPD (chronic obstructive pulmonary disease) ([facility]) 07/03/2024 Depression Gastric mass Hypertension Hypothyroid ELOY (obstructive sleep apnea) 07/03/[address] [place] . [facility] [facility] Sick sinus syndrome ([facility]) Sleep apnea uses cpap at night PAST SURGICAL HISTORY Procedure Laterality Date ANESTHESIA LUMBAR REGION NOS 02/07/2016 L4-L5 fusion; [facility] APPENDECTOMY CARPAL TUNNEL left HYSTERECTOMY HX LAPAROSCOPY [...] use: No Comment: Heavy EtOH use 2000. ALLERGIES Allergen Reactions Asa [Salicylates] GI Upset [...] bedtime. traZO (more content not included)... Normal [facility] MR Cervical spine WO contras ton 08-04-2024 * * [...] No canal stenosis or neural foraminal stenosis. [facility] SYNGO Provider, [facility] - 08/04/2024 * * *Final Report* * * DATE OF EXAM: Aug 04 2024 4:14PM AYUSH Thacker - MRI CERVICAL SPINE WO IVCON / [...] vertebrae with counting from the craniocervical junction. Application Security Consultant: P[employer] Transcribe Date/Time: Aug 04 2024 4:34P Dictated by : JUSTIN MOSHER MD This examination was interpreted and the report reviewed and electronically signed by: JUSTIN MOSHER MD on Aug 04 2024 4:39PM EST [facility] MR Cervical spine WO contras tOrdered By: Ccf Provider on 08-04-2024 [facility] MR Thoracic spine WO contras ton 08-04-2024 * * *Final Report* * * DATE OF EXAM: Aug 04 2024 4:14PM [facility] 0325 - MRI THORACIC SPINE WO IVCON [...] The thoracic canal and foramina are patent. [facility] SYNGO Provider, [facility] - 08/04/2024 * * *Final Report* * * DATE OF EXAM: Aug 04 2024 4:14PM [place] 0325 - MRI THORACIC SPINE WO IVCON [...] and assume there are 5 lumbar-type vertebrae. Application Security Consultant[facility] Transcribe Date/Time: Aug 04 2024 4:51P Dictated by : JUSTIN MOSHER MD This examination was interpreted and the report reviewed and electronically signed by: JUSTIN MOSHER MD on Aug 04 2024 4:56PM [facility] MRI CERVICAL SPINE WO IVCONo n 08-04-2024 MRI CERVICAL SPINE WO IVCON * * *Final Report* * * DATE OF EXAM: Aug 04 2024 4:14PM [facility] 0297 - MRI CERVICAL SPINE WO IVCON [...] vertebrae with counting from the craniocervical junction. Application Security Consultant: [facility] Transcribe Date/Time: Aug 04 2024 4:34P Dictated by : JUSTIN MOSHER MD This examination was interpreted and the report reviewed and electronically signed by: JUSTIN MOSHER MD on Aug 04 2024 4:39PM EST [id number] Normal [facility] MRI THORACIC SPINE WO IVCONo n 08-04-2024 MRI THORACIC SPINE WO IVCON * * *Final Report* * * DATE OF EXAM: Aug 04 2024 4:14PM [facility] 0325 - MRI THORACIC SPINE WO IVCON [...] and assume there are 5 lumbar-type vertebrae. Application Security Consultant: CHERIE Transcribe Date/Time: Aug 04 2024 4:51P Dictated by : JUSTIN MOSHER MD This examination was interpreted and the report reviewed and electronically signed by: JUSTIN MOSHER MD on Aug 04 2024 4:56PM EST [id number] Normal [facility] No Panel Informationon 08-04 Radiology Study observation (narrative) [facility] Abdomen/Pelvis W IV Cont ONL Yon 07-22-2024 Abdomen/Pelvis W IV Cont ONLY Normal [facility] Absolute lymphocyte countOrd ered By: Chaim Maurer on 07-22-2024 Lymphocytes Auto (Unsp spec) [#/Vol] 4.02 10*3/uL 0.83-4.51 [facility] Anion gap in Serum or Plasma Ordered By: Chaim Maurer on 07-22-2024 Anion gap [Moles/Vol] 13 mmol/L 5-15 [facility] Automated lymphocyte count a s percentage of total leukocytesOrdered By: Chaim Libertad on 07-22-2024 Lymphocytes/100 WBC Auto (Unsp spec) 37.0 % 19-41 [facility] BUN/creatinine ratioOrdered By: Chaim Maurer on 07-22-2024 Urea nitrogen/Creatinine [Mass ratio] 18.0 mg/mg 10-20 [facility] Basophil percentageOrdered B y: Chaim Maurer on 07-22-2024 Basophils/100 WBC (Bld) 0.4 % 0-1 [facility] Bilirubin, totalOrdered By: Chaim Maurer on 07-22-2024 Bilirubin [Mass/Vol] 0.17 mg/dL 0.00-1.30 [facility] CBC W/Diff, Automatedon 07-09 Absolute Lymph 4.02 X10 3/uL Normal 0.83-4.51 [facility] Comment on above: Performed By: #### L 500.4050, L100.0100 ####[facility] [address] [place], [address] Absolute Neut 5.7 X10 3/uL Normal 2.0-7.7 [facility] Comment on above: Performed By: #### L 500.4050, L100.0100 ####[facility] [address] [place], [address] Basophils/100 WBC (Bld) 0.4 % Normal 0-1 [facility] Comment on above: Performed By: #### L 500.4050, L100.0100 ####[facility] [address] [place], [address] Eosinophils/100 WBC (Bld) 1.9 % Normal 0-5 [facility] Comment on above: Performed By: #### L 500.4050, L100.0100 ####[facility] [address] [place], [address] Erythrocyte distribution width (RBC) [Ratio] 13.9 % Normal 11.6-14.6 [facility] Comment on above: Performed By: #### L 500.4050, L100.0100 ####[facility] [address] [place], [address] Hematocrit (Bld) [Volume fraction] 40.8 % Normal 37-47 [facility] Comment on above: Performed By: #### L 500.4050, L100.0100 ####[facility] [address] [place], [address] Hemoglobin (Bld) [Mass/Vol] 13.0 g/dL Normal 12.0-15.0 [facility] Comment on above: Performed By: #### L 500.4050, L100.0100 ####[facility] [address] [place], [address] IG% 0.600 Normal 0.0-0.9 [facility] Comment on above: Result Comment: IG% - Immature Granulocytes (promyelocytes, myelocytes andmetamyelocytes) > 1% indicates that a LEFT SHIFT is Present. Performed By: #### L 500.4050, L100.0100 ####[facility] [address] [place], [address] Lymphocytes/100 WBC (Bld) 37.0 % Normal 19-41 [facility] Comment on above: Performed By: #### L 500.4050, L100.0100 ####[facility] [address] [place], [address] MCH (RBC) [Entitic mass] 28.4 pg Normal 27.0-32.0 [facility] Comment on above: Performed By: #### L 500.4050, L100.0100 ####[facility] [address] [place], [address] MCHC (RBC) [Mass/Vol] 31.9 g/dL Low 32-36 [facility] Comment on above: Performed By: #### L 500.4050, L100.0100 ####[facility] [address] [place], [address] MCV (RBC) [Entitic vol] 89.1 fL Normal 81-99 [facility] Comment on above: Performed By: #### L 500.4050, L100.0100 ####[facility] [address] [place], [address] Monocytes/100 WBC (Bld) 7.3 % Normal 0-10 [facility] Comment on above: Performed By: #### L 500.4050, L100.0100 ####[facility] [address] [place], [address] Neutrophils/100 WBC (Bld) 52.8 % Normal 47-70 [facility] Comment on above: Performed By: #### L 500.4050, L100.0100 ####[facility] [address] [place], [address] Nucleated RBC (Bld) [#/Vol] 0 10*3/uL Normal 0-5 [facility] Comment on above: Performed By: #### L 500.4050, L100.0100 ####[facility] [address] [place], [address] Platelet mean volume (Bld) [Entitic vol] 10.1 fL Normal 6.2-12.0 [facility] Comment on above: Performed By: #### L 500.4050, L100.0100 ####[facility] [address] [place], [address] Platelets (Bld) [#/Vol] 269 10*3/uL Normal 150-450 [facility] Comment on above: Performed By: #### L 500.4050, L100.0100 ####[facility] [address] [place], [address] RBC (Bld) [#/Vol] 4.58 10*6/uL Normal 4.2-5.4 [facility] Comment on above: Performed By: #### L 500.4050, L100.0100 ####[facility] [address] [place], [address] RDW SD 44.9 fl High 35.1-43.9 [facility] Comment on above: Performed By: #### L 500.4050, L100.0100 ####[facility] [address] [place], [address] WBC (Bld) [#/Vol] 10.9 10*3/uL Normal 4.4-11.0 [facility] Comment on above: Performed By: #### L 500.4050, L100.0100 ####[facility] [address] [place], [address] Carbon dioxide, total [Moles /volume] in Central venous bloodOrdered By: Chaim Maurer on 07-22-2024 CO2 [Moles/Vol] 21.6 mmol/L 21.0-32.0 [facility] Chloride assayOrdered By: Kaity Maurer on 07-22-2024 Chloride [Moles/Vol] 107 mmol/L 98-108 [facility] Comprehensive Metabolic Prof ilon 07-22-2024 Albumin [Mass/Vol] 4.2 g/dL Normal 3.5-5.0 [facility] Comment on above: Performed By: #### L 500.4050, L100.0100 ####[facility] [address] [place], [address] Albumin/Globulin [Mass ratio] 1.3 {ratio} Normal 0.9-2.4 [facility] Comment on above: Performed By: #### L 500.4050, L100.0100 ####[facility] [address] [place], [address] ALK PHOS 76 U/L Normal 35-104 [facility] Comment on above: Performed By: #### L 500.4050, L100.0100 ####[facility] [address] [place], [address] ALT [Catalytic activity/Vol] 18 U/L Normal <=34 [facility] Comment on above: Performed By: #### L 500.4050, L100.0100 ####[facility] [address] [place], [address] AST [Catalytic activity/Vol] 20 U/L Normal <=31 [facility] Comment on above: Performed By: #### L 500.4050, L100.0100 ####[facility] [address] [place], [address] Bilirubin [Mass/Vol] 0.17 mg/dL Normal 0.00-1.30 [facility] Comment on above: Performed By: #### L 500.4050, L100.0100 ####[facility] [address] [place], [address] BUN/CRE 18.0 RATIO Normal 10-20 [facility] Comment on above: Performed By: #### L 500.4050, L100.0100 ####[facility] [address] [place], [address] Calcium [Mass/Vol] 9.5 mg/dL Normal 7.6-11.0 [facility] Comment on above: Performed By: #### L 500.4050, L100.0100 ####[facility] [address] [place], [address] Chloride [Moles/Vol] 107 mmol/L Normal 98-108 [facility] Comment on above: Performed By: #### L 500.4050, L100.0100 ####[facility] [address] [place], [address] CO2 [Moles/Vol] 21.6 mmol/L Normal 21.0-32.0 [facility] Comment on above: Performed By: #### L 500.4050, L100.0100 ####[facility] [address] [place], [address] Creatinine [Mass/Vol] 1.42 mg/dL High 0.70-1.20 [facility] Comment on above: Performed By: #### L 500.4050, L100.0100 ####[facility] [address] [place], [address] ECRCL 33.40 ml/min Low 50-250 [facility] Comment on above: Performed By: #### L 500.4050, L100.0100 ####[facility] [address] [place], [address] GAP 13 Normal 5-15 [facility] Comment on above: Performed By: #### L 500.4050, L100.0100 ####[facility] [address] [place], [address] GFR/1.73 sq M.predicted among non-blacks MDRD (S/P/Bld) [Vol rate/Area] 43 mL/min/{1.73_m2} Low >60 [facility] Comment on above: Result Comment: mL/m in/1.73m2 CKD-EPI Creatinine Equation (2020) Performed By: #### L 500.4050, L100.0100 ####[facility] [address] [place], [address] Globulin (S) [Mass/Vol] 3.3 g/dL Normal 2.2-4.2 [facility] Comment on above: Performed By: #### L 500.4050, L100.0100 ####[facility] [address] [place], [address] Glucose [Mass/Vol] 178 mg/dL High 70-99 [facility] Comment on above: Performed By: #### L 500.4050, L100.0100 ####[facility] [address] [place], [address] Potassium [Moles/Vol] 4.0 mmol/L Normal 3.3-5.1 [facility] Comment on above: Performed By: #### L 500.4050, L100.0100 ####[facility] [address] [place], [address] Sodium [Moles/Vol] 141 mmol/L Normal 133-145 [facility] Comment on above: Performed By: #### L 500.4050, L100.0100 ####[facility] [address] [place], [address] T PROT 7.4 g/dL Normal 5.9-8.4 [facility] Comment on above: Performed By: #### L 500.4050, L100.0100 ####[facility] [address] [place], [address] Urea nitrogen [Mass/Vol] 26 mg/dL High 4-19 [facility] Comment on above: Performed By: #### L 500.4050, L100.0100 ####[facility] [address] [place], [address] Emergency Department Summary on 07-22-2024 Emergency Department Summary Normal [facility] Eosinophil percentageOrdered By: Chaim Maurer on 07-22-2024 Eosinophils/100 WBC (Bld) 1.9 % 0-5 [facility] Erythrocyte distribution wid th ratioOrdered By: Chaim Maurer on 07-22-2024 Erythrocyte distribution width (RBC) [Ratio] 13.9 % 11.6-14.6 [facility] Erythrocyte distribution wid th standard deviationOrdered By: Chaim Maurer on 07-22-2024 Erythrocyte distribution width (RBC) [Ratio] 44.9 fl High 35.1-43.9 [facility] Glomerular filtration rate ( GFR) estimation/1.73 sq m using serum, plasma, or whole bOrdered By: Chaim Maurer on 07-22-2024 GFR/1.73 sq M.predicted among non-blacks MDRD (S/P/Bld) [Vol rate/Area] 43 mL/min/{1.73_m2} Low >60 [facility] Hematocrit Auto (Bld) [Volum e fraction]Ordered By: Chaim Maurer on 07-22-2024 Hematocrit (Bld) [Volume fraction] 40.8 % 37-47 [facility] Hemoglobin measurementOrdere d By: Chaim Maurer on 07-22-2024 Hemoglobin (Bld) [Mass/Vol] 13.0 g/dL 12.0-15.0 [facility] Immature granulocytes/100 WB C Auto (Bld)Ordered By: Chaim Maurer on 07-22-2024 Immature granulocytes/100 WBC (Bld) 0.600 % 0.0-0.9 [facility] Internal Medicine Office Vis iton 07-22-2024 Internal Medicine Office Visit Normal [facility] MCV (mean corpuscular volume ) determinationOrdered By: Chaim Maurer on 07-22-2024 MCV (RBC) [Entitic vol] 89.1 fL 81-99 [facility] Mean corpuscular hemoglobin (MCH) determinationOrdered By: Chaim Maurer on 07-22-2024 MCH (RBC) [Entitic mass] 28.4 pg 27.0-32.0 [facility] Monocyte percentageOrdered B y: Chaim Maurer on 07-22-2024 Monocytes/100 WBC (Bld) 7.3 % 0-10 [facility] Neutrophil percentageOrdered By: Chaim Maurer on 07-22-2024 Neutrophils/100 WBC (Bld) 52.8 % 47-70 [facility] No Panel InformationOrdered By: Chaim Maurer on 07-22-2024 20 U/L <32 [facility] No Panel InformationOrdered By: Charla Wadsworth on 07-22-2024 6.9 % High 4.2-6.3 [facility] Platelet countOrdered By: Kaity Maurer on 07-22-2024 Platelets (Bld) [#/Vol] 269 10*3/uL 150-450 [facility] Potassium measurement (mass/ volume)Ordered By: Chaim Maurer on 07-22-2024 Potassium (Unsp spec) [Mass/Vol] 4.0 mmol/L 3.3-5.1 [facility] RBC Auto (Bld) [#/Vol]Ordere d By: Chaim Maurer on 07-22-2024 RBC (Bld) [#/Vol] 4.58 10*6/uL 4.2-5.4 [facility] Serum creatinine measurement (mass/volume)Ordered By: Chaim Maurer on 07-22-2024 Creatinine [Mass/Vol] 1.42 mg/dL High 0.70-1.20 [facility] Serum globulin measurementOr dered By: Chaim Maurer on 07-22-2024 Globulin (S) [Mass/Vol] 3.3 g/dL 2.2-4.2 [facility] Serum glucose measurement (m ass/volume)Ordered By: Chaim Maurer on 07-22-2024 Glucose [Mass/Vol] 178 mg/dL High 70-99 [facility] Serum or plasma alanine cortes otransferase (ALT) measurementOrdered By: Chaim Maurer on 07-22-2024 ALT [Catalytic activity/Vol] 18 U/L <35 [facility] Serum or plasma albumin heather urement (mass/volume)Ordered By: Chaim Maurer on 07-22-2024 Albumin [Mass/Vol] 4.2 g/dL 3.5-5.0 [facility] Serum or plasma albumin/glob ulin mass ratioOrdered By: Chaim Maurer on 07-22-2024 Albumin/Globulin [Mass ratio] 1.3 {ratio} 0.9-2.4 [facility] Serum or plasma alkaline osorio sphatase measurementOrdered By: Chaim Maurer on 07-22-2024 ALP [Catalytic activity/Vol] 76 U/L 35-104 [facility] Serum or plasma calcium heather urement (mass/volume)Ordered By: Chaim Libertad on 07-22-2024 Calcium [Mass/Vol] 9.5 mg/dL 7.6-11.0 [facility] Serum or plasma urea nitroge n measurement (mass/volume)Ordered By: Chaim Libertad on 07-22-2024 Urea nitrogen [Mass/Vol] 26 mg/dL High 4-19 [facility] Sodium levelOrdered By: Raeann mike Chiurus on 07-22-2024 Sodium [Moles/Vol] 141 mmol/L 133-145 [facility] Total proteinOrdered By: Latrice Maurer on 07-22-2024 Protein [Mass/Vol] 7.4 g/dL 5.9-8.4 [facility] Urinalysis, Completeon 07-22 BACTERIA Normal None Seen [facility] Comment on above: Order Comment: ADOLPH HERNANDEZOR TO SPECIFY Result Comment: Canc elled via OM: Ordered Performed By: #### L 400.0001 ####[facility] [address] [place], [address] BILIRUBIN URINE Normal Negative [facility] Comment on above: Order Comment: ADOLPH KRUSE TO SPECIFY Result Comment: Canc elled via OM: Ordered Performed By: #### L 400.0001 ####[facility] [address] [place], [address] Clarity (U) Normal Clear [facility] Comment on above: Order Comment: ADOLPH KRUSE TO SPECIFY Result Comment: Canc elled via OM: Ordered Performed By: #### L 400.0001 ####[facility] [address] [place], [address] Color (U) Normal Yellow [facility] Comment on above: Order Comment: ADOLPH KRUSE TO SPECIFY Result Comment: Canc elled via OM: Ordered Performed By: #### L 400.0001 ####[facility] [address] [place], [address] EPI,SQUAMOUS Normal 5-10 [facility] Comment on above: Order Comment: ADOLPH CTOR TO SPECIFY Result Comment: Canc elled via OM: MD Ordered Performed By: #### L 400.0001 ####[facility] [address] [place], [address] GLUCOSE, UR Normal Normal [facility] Comment on above: Order Comment: COLLE CTOR TO SPECIFY Result Comment: Canc elled via OM: MD Ordered Performed By: #### L 400.0001 ####[facility] [address] [place], [address] KETONE UR Normal Negative [facility] Comment on above: Order Comment: ADOLPH CTOR TO SPECIFY Result Comment: Canc elled via OM: MD Ordered Performed By: #### L 400.0001 ####[facility] [address] [place], [address] LEUK ESTERASE Normal Negative [facility] Comment on above: Order Comment: COLLE CTOR TO SPECIFY Result Comment: Canc elled via OM: MD Ordered Performed By: #### L 400.0001 ####[facility] [address] [place], [address] Mucus Ql (Urine sed) Normal [facility] Comment on above: Order Comment: ADOLPH CTOR TO SPECIFY Result Comment: Canc elled via OM: MD Ordered Performed By: #### L 400.0001 ####[facility] [address] [place], [address] Nitrite Ql (U) Normal Negative [facility] Comment on above: Order Comment: ADOLPH CTOR TO SPECIFY Result Comment: Canc elled via OM: MD Ordered Performed By: #### L 400.0001 ####[facility] [address] [place], [address] OCCULT BLOOD-UR Normal Negative [facility] Comment on above: Order Comment: ADOLPH CTOR TO SPECIFY Result Comment: Canc elled via OM: MD Ordered Performed By: #### L 400.0001 ####[facility] [address] [place], [address] pH UR Normal 5.0 - 8.0 [facility] Comment on above: Order Comment: ADOLPH CTOR TO SPECIFY Result Comment: Canc elled via OM: MD Ordered Performed By: #### L 400.0001 ####[facility] [address] [place], [address] PROT DIPSTX Normal Negative [facility] Comment on above: Order Comment: ADOLPH CTOR TO SPECIFY Result Comment: Canc elled via OM: MD Ordered Performed By: #### L 400.0001 ####[facility] [address] [place], [address] RBC Normal 0-5 [facility] Comment on above: Order Comment: ADOLPH CTOR TO SPECIFY Result Comment: Canc elled via OM: MD Ordered Performed By: #### L 400.0001 ####[facility] [address] [place], [address] SP.GR. DIPSTX Normal 1.002-1.030 [facility] Comment on above: Order Comment: ADOLPH CTOR TO SPECIFY Result Comment: Canc elled via OM: MD Ordered Performed By: #### L 400.0001 ####[facility] [address] [place], [address] UR Preservative Normal [facility] Comment on above: Order Comment: ADOLPH CTOR TO SPECIFY Result Comment: Canc elled via OM: MD Ordered Performed By: #### L 400.0001 ####[facility] [address] [place], [address] UROBILI Normal Normal [facility] Comment on above: Order Comment: ADOLPH CTOR TO SPECIFY Result Comment: Canc elled via OM: MD Ordered Performed By: #### L 400.0001 ####[facility] [address] [place], [address] WBC Normal 0-5 [facility] Comment on above: Order Comment: COLLE CTOR TO SPECIFY Result Comment: Deepa best via OM: Ordered Performed By: #### L 400.0001 ####[facility] [address] [place], [address] White blood cell (WBC) count Ordered By: Chaim Maurer on 07-22-2024 WBC (Bld) [#/Vol] 10.9 10*3/uL 4.4-11.0 [facility] CNPNon 07-13-2024 CNPN Telephone (AGPOB1) RAMSES BRADSHAW ([id number]) 1965 F Date Time Provider Department 07/13/24 BUTCH MAYS AGPOB1 During your visit today, we recorded the following information about you: Dari Trujillo 07/13/2024 9:50 AM Signed I will rout to Dr. Mays for signature. aDri Sheth July 13, 2024 9:50 AM Dari Trujillo 07/15/2024 8:11 AM Signed Called centralized scheduling at [facility] on 07/14/24 to set up STAT MRI's for this patient but was told due to Implant the MRI department will have to call me to schedule. Patient is in a facility in [place] and they will need at least a 48 hour notice for transportation. I spoke to nurse at [facility] in [place] [phone]. Dari Gil Data Warehouse DeveloperDari Littlejohn 07/17/2024 8:30 AM Signed Received call from [facility] and MRI 's have been moved up to Saturday08/04/24 at [facility] and follow up with Dr. Mays is on 08/06/24 in [facility]. Gave all appointment information to Juana at [facility] in [place]. Told Juana that patient need to bring remote and make sure her device is fully charged. Dari Gil [place] [facility] July 17, 2024 8:30 AM Allergies As [...] Vomiting Date Reviewed: 07/03/2024 Reviewed by: Christina Gayle RN - Fully Assessed Reason for Visit: Orders [681] Cmt: Received message form Dr. Mays that he would like MRI's ordered as STAT Primary Visit Diagnosis:Thoracic myelopathy [M47.14] Other Visit Diagnosis:Spinal stenosis of cervical region [M48.02] Order(s):MRI CERVICAL SPINE WO IVCON [[id number]] Order #: [id number] FUTURE MRI THORACIC SPINE WO IVCON [[id number]] Order #: [id number] FUTURE Prescriptions as of 07/17/2024 - isosorbide [...] 07/03/2024 Hypothyroid (more content not included)... Normal [facility] CNDSon 07-04-2024 CNDS HNO ID: [id number] Author: DILMA GARAY MD Service: Hospital Medicine [...] any family that can bring in the battery recharger for the remote. Due to this MRI [...] call for appointment?: Yes Charla Wadsworth MD [phone] [address] [facility] [address] PCP Requested Referral Follow-up Appointment When: In 1 week Patient/Parents to call for appointment?: Yes Butch Mays MD [phone] [facility] [address] [facility] [address] PCP Requested Referral Additional Provider to Provider Information: Morbid Obesity Class 3 Treatment Team: Attending Provider: Dilma Garay MD Primary Service: [facility] Consulting: Butch Mays MD Transitions of Care Critical Issues: SPECIALIST FOLLOW-UP: Ortho spine LYLES MEDICATION CHANGES: Lidocaine patch, Continue percocet PRN LABS AND PROCEDURES PENDING AT DISCHARGE: No pending results. FOLLOW-UP APPOINTMENTS ALREADY SCHEDULED WITH A [facility] PROVIDER: No future appointments. ALLERGIES Allergen Reactions [...] metoprolol tartrat (more content not included)... Normal [facility] THERAPY NTon 07-04-2024 THERAPY NT HNO ID: [id number] Author: JANETH ALLISON, VIVIANR/L Service: Occupational Therapy Author Type: Occupational Therapist Type: Therapy (PT/OT/Speech/Resp) Filed: 07/04/2024 13:05 Note Text: Occupational Therapy Evaluation Summary SERVICE DATE: 07/04/2024 SERVICE TIME: 1059 to 1122 ROOM: [id number] OT 6 Clicks Score: 15 DISCHARGE RECOMMENDATIONS [...] symptoms and signs-other TREATMENT INTERVENTIONS Evaluation, Self Penitentiary Management (27973) Timed Code Treatment (minutes): 8 Skilled Treatment Time (minutes): 23 $ Evaluation - Moderate (34244) Billed Units: 1 unit Self Penitentiary Management (36290) Treatment Minutes: 8 $ Self Penitentiary Management (01083) Billed Units: 1 unit TRAINING AND EDUCATION [...] Occupational Therapy, Safety/Judgment, Sitting Balance to Improve [place] with ADLs/Self-Care, Standing Balance to Improve [place] with ADLs/Self-Care, Transfer - Sit to Stand, [...] in ro (more content not included)... Normal [facility] ALLIED HEALTHon 07-03-2024 ALLIED HEALTH HNO ID: [id number] Author: EUGENIO LOUISE Tech Service: ? Author [...] PATIENT PRESENTS WITH AN IMPLANTABLE OR ATTACHED DOUGH BRAKER: No RADIOLOGY DEPARTMENT: CT; Exam(s) Completed: Spine PERIPHERAL IV DATA: Inpatient: see LDA documentation SIGNED BY: Candelario Collier July 03, 2024 5:28 PM Normal [facility] CBC panel Auto (Bld)on 07-03 Erythrocyte distribution width (RBC) [Ratio] 13.9 % Normal 11.5-15.0 [facility] Comment on above: Order Comment: Donell orozco Type: BLOOD SPECIMEN Ordering Facility: [facility] Address: [address] [place] [address] Performed By: #### 5 8410-2 #### [facility] CLIA [id number] 1 [place] [address] [place] Hematocrit (Bld) [Volume fraction] 41.4 % Normal 36.0-46.0 [facility] Comment on above: Order Comment: Donell orozco Type: BLOOD SPECIMEN Ordering Facility: [facility] Address: [address] [place] [address] Performed By: #### 5 8410-2 #### [facility] CLIA [id number] [address] Hemoglobin (Bld) [Mass/Vol] 13.4 g/dL Normal 11.5-15.5 [facility] Comment on above: Order Comment: Speci men Type: BLOOD SPECIMEN Ordering Facility: [facility] Address: [address] [place] [address] Performed By: #### 5 8410-2 #### [facility] CLIA [id number] [address] MCH (RBC) [Entitic mass] 28.8 pg Normal 26.0-34.0 [facility] Comment on above: Order Comment: Speci men Type: BLOOD SPECIMEN Ordering Facility: [facility] Address: [address] [place] [address] Performed By: #### 5 8410-2 #### [facility] CLIA [id number] [address] MCHC (RBC) [Mass/Vol] 32.4 g/dL Normal 30.5-36.0 [facility] Comment on above: Order Comment: Speci men Type: BLOOD SPECIMEN Ordering Facility: [facility] Address: [address] [place] [address] Performed By: #### 5 8410-2 #### [facility] CLIA [id number] [address] MCV (RBC) [Entitic vol] 89.0 fL Normal 80.0-100.0 [facility] Comment on above: Order Comment: Speci men Type: BLOOD SPECIMEN Ordering Facility: [facility] Address: [address] [place] [address] Performed By: #### 5 8410-2 #### [facility] CLIA [id number] [address] Nucleated RBC (Bld) [#/Vol] 10*3/uL Normal <0.01 [facility] Comment on above: Order Comment: Speci men Type: BLOOD SPECIMEN Ordering Facility: [facility] Address: [address] [place], [place] [address] Performed By: #### 5 8410-2 #### [facility] CLIA [id number] [address] Platelet mean volume (Bld) [Entitic vol] 9.4 fL Normal 9.0-12.7 [facility] Comment on above: Order Comment: Speci men Type: BLOOD SPECIMEN Ordering Facility: [facility] Address: [facility] [place] [address] Performed By: #### 5 8410-2 #### [facility] CLIA [id number] [address] [place] Platelets (Bld) [#/Vol] 219 10*3/uL Normal 150-400 [facility] Comment on above: Order Comment: Speci men Type: BLOOD SPECIMEN Ordering Facility: [facility] Address: [address] [place] [address] Performed By: #### 5 8410-2 #### [facility] CLIA [id number] [address] [place] RBC (Bld) [#/Vol] 4.65 10*6/uL Normal 3.90-5.20 [facility] Comment on above: Order Comment: Speci men Type: BLOOD SPECIMEN Ordering Facility: [facility] Address: [address] [place] [address] Performed By: #### 5 8410-2 #### [facility] CLIA [id number] [address] [place] WBC (Bld) [#/Vol] 8.42 10*3/uL Normal 3.70-11.00 [facility] Comment on above: Order Comment: Speci men Type: BLOOD SPECIMEN Ordering Facility: [facility] Address: [address] [place] [address] Performed By: #### 5 8410-2 #### [facility] CLIA [id number] [address] [place] Erythrocyte distribution width (RBC) [Ratio] 13.6 % Normal 11.5-15.0 [facility] Comment on above: Order Comment: Speci men Type: BLOOD SPECIMEN Ordering Facility: [facility] Address: [address] [place] [address] Performed By: #### 5 8410-2 #### [facility] CLIA [id number] [address] OF [facility] Hematocrit (Bld) [Volume fraction] 41.1 % Normal 36.0-46.0 [facility] Comment on above: Order Comment: Speci men Type: BLOOD SPECIMEN Ordering Facility: [facility] Address: [address] [place] [address] Performed By: #### 5 8410-2 #### [facility] CLIA [id number] [address] OF [facility] Hemoglobin (Bld) [Mass/Vol] 13.0 g/dL Normal 11.5-15.5 [facility] Comment on above: Order Comment: Speci men Type: BLOOD SPECIMEN Ordering Facility: [facility] Address: [address] [place] [address] Performed By: #### 5 8410-2 #### [facility] CLIA [id number] [address] MCH (RBC) [Entitic mass] 28.6 pg Normal 26.0-34.0 [facility] Comment on above: Order Comment: Speci men Type: BLOOD SPECIMEN Ordering Facility: [facility] Address: [address] [place] [address] Performed By: #### 5 8410-2 #### [facility] CLIA [id number] [address] [place] MCHC (RBC) [Mass/Vol] 31.6 g/dL Normal 30.5-36.0 [facility] Comment on above: Order Comment: Speci men Type: BLOOD SPECIMEN Ordering Facility: [facility] Address: [address] [place] [address] Performed By: #### 5 8410-2 #### [facility] CLIA [id number] [address] [place] MCV (RBC) [Entitic vol] 90.5 fL Normal 80.0-100.0 [facility] Comment on above: Order Comment: Speci men Type: BLOOD SPECIMEN Ordering Facility: [facility] Address: [address] [place] [address] Performed By: #### 5 8410-2 #### [facility] CLIA [id number] [address] [place] Nucleated RBC (Bld) [#/Vol] 10*3/uL Normal <0.01 [facility] Comment on above: Order Comment: Speci men Type: BLOOD SPECIMEN Ordering Facility: [facility] Address: [address] [place] [address] Performed By: #### 5 8410-2 #### [facility] CLIA [id number] [address] [place] Platelet mean volume (Bld) [Entitic vol] 9.2 fL Normal 9.0-12.7 [facility] Comment on above: Order Comment: Speci men Type: BLOOD SPECIMEN Ordering Facility: [facility] Address: [address] [place] [address] Performed By: #### 5 8410-2 #### [facility] CLIA [id number] [address] Platelets (Bld) [#/Vol] 203 10*3/uL Normal 150-400 [facility] Comment on above: Order Comment: Speci men Type: BLOOD SPECIMEN Ordering Facility: [facility] Address: [address] [place] [address] Performed By: #### 5 8410-2 #### [facility] CLIA [id number] [address] [place] RBC (Bld) [#/Vol] 4.54 10*6/uL Normal 3.90-5.20 [facility] Comment on above: Order Comment: Speci men Type: BLOOD SPECIMEN Ordering Facility: [facility] Address: [address] [place] [address] Performed By: #### 5 8410-2 #### [facility] CLIA [id number] 1 [place] [id number] [facility] WBC (Bld) [#/Vol] 7.47 10*3/uL Normal 3.70-11.00 [facility] Comment on above: Order Comment: Speci men Type: BLOOD SPECIMEN Ordering Facility: [facility] Address: [address] [place] [address] Performed By: #### 5 8410-2 #### [facility] CLIA [id number] 1 [place] [id number] [facility] CONSULTon 07-03-2024 CONSULT HNO ID: [id number] Author: BUTCH MAYS MD Service: Orthopaedic Surgery [...] HPI: 58 year old female presented to [facility] with increased lower back and mid back [...] patient had a prior L4-L5 PSIF at [facility] but is unsure of when that occurred but states it was done due to back pain. PAST MEDICAL HISTORY Diagnosis Date Anxiety Atrial fibrillation ([facility]) 07/03/2024 CAD (coronary artery disease) 07/03/2024 Congestive heart failure ([facility]) 07/03/2024 Controlled type 2 diabetes mellitus without complication, without long-term current use of insulin ([facility]) 07/03/2024 COPD (chronic obstructive pulmonary disease) ([facility]) 07/03/2024 Depression Gastric mass Hypertension Hypothyroid ELOY (obstructive sleep apnea) 07/03/[address] bangura . pacemaker [facility] at [facility] Sick sinus syndrome ([facility]) Sleep apnea uses cpap at night PAST SURGICAL HISTORY Procedure Laterality Date ANESTHESIA LUMBAR REGION NOS 02/07/2016 L4-L5 fusion; [facility] APPENDECTOMY CARPAL TUNNEL left HYSTERECTOMY HX LAPAROSCOPY [...] H levothyr (more content not included)... Normal [facility] CT LUMBAR SPINE WO IVCONon 0 07-03-2024 CT LUMBAR SPINE WO IVCON * * *Final Report* * * DATE OF EXAM: Jul 03 2024 5:31PM [facility] 0508 - CT LUMBAR SPINE WO IVCON [...] 4. Mild progression of lower thoracic spondylosis. Application Security Consultant: [facility] Transcribe Date/Time: Jul 03 2024 6:15P Dictated by : IDA RUFFIN MD This examination was interpreted and the report reviewed and electronically signed by: IDA RUFFIN MD on Jul 03 2024 6:26PM EST [id number] Normal [facility] CT THORACIC SPINE WO IVCONon 07-03-2024 CT THORACIC SPINE WO IVCON * * *Final Report* * * DATE OF EXAM: Jul 03 2024 5:31PM [facility] 0514 - CT THORACIC SPINE WO IVCON [...] 4. Mild progression of lower thoracic spondylosis. Application Security Consultant: CHERIE Transcribe Date/Time: Jul 03 2024 6:15P Dictated by : IDA RUFFIN MD This examination was interpreted and the report reviewed and electronically signed by: IDA RUFFIN MD on Jul 03 2024 6:26PM EST [id number] Normal [facility] Comprehensive metabolic 2000 panelon 07-03-2024 Albumin [Mass/Vol] 4.1 g/dL Normal 3.9-4.9 [facility] Comment on above: Order Comment: Donell orozco Type: BLOOD SPECIMEN Ordering Facility: [facility] Address: [address] [place] [address] Performed By: #### 2 4323-8, 18065-8, 3016-3, 3024-7 #### [facility] CLIA [id number] [address] STATES OF [facility] ALP [Catalytic activity/Vol] 64 U/L Normal 34-123 [facility] Comment on above: Order Comment: Mirzai men Type: BLOOD SPECIMEN Ordering Facility: [facility] Address: [address] [place] [address] Performed By: #### 2 4323-8, 93209-6, 3016-3, 3024-7 #### [facility] CLIA [id number] [address] [place] [address] [place] ALT With P-5'-P [Catalytic activity/Vol] 24 U/L Normal 7-38 [facility] Comment on above: Order Comment: Mirzai men Type: BLOOD SPECIMEN Ordering Facility: [facility] Address: [address] [place] [address] Performed By: #### 2 4323-8, 32338-5, 3016-3, 3024-7 #### [facility] CLIA [id number] [address] STATES OF [facility] Anion gap [Moles/Vol] 9 mmol/L Normal 8-15 [facility] Comment on above: Order Comment: Speci men Type: BLOOD SPECIMEN Ordering Facility: [facility] Address: [address] [place], [place] [address] Performed By: #### 2 4323-8, 31763-4, 6-3, 3024-7 #### [facility] CLIA [id number] [address] [place] AST With P-5'-P [Catalytic activity/Vol] 24 U/L Normal 13-35 [facility] Comment on above: Order Comment: Speci men Type: BLOOD SPECIMEN Ordering Facility: [facility] Address: [address] [place] [address] Performed By: #### 2 4323-8, 23824-9, 6-3, 3024-7 #### [facility] CLIA [id number] [address] [place] Bilirubin [Mass/Vol] 0.2 mg/dL Normal 0.2-1.3 [facility] Comment on above: Order Comment: Speci men Type: BLOOD SPECIMEN Ordering Facility: [facility] Address: [address] [place] [address] Performed By: #### 2 4323-8, 72037-1, 6-3, 3024-7 #### [facility] CLIA [id number] [address] [place] Calcium [Mass/Vol] 9.3 mg/dL Normal 8.5-10.2 [facility] Comment on above: Order Comment: Speci men Type: BLOOD SPECIMEN Ordering Facility: [facility] Address: [address] [place] [address] Performed By: #### 2 4323-8, 88726-1, 3016-3, 3024-7 #### [facility] CLIA [id number] [address] [place] [address] [place] Chloride [Moles/Vol] 106 mmol/L Normal 98-107 [facility] Comment on above: Order Comment: Speci men Type: BLOOD SPECIMEN Ordering Facility: [facility] Address: [address] [place] [address] Performed By: #### 2 4323-8, 44793-9, 6-3, 302-7 #### [facility] CLIA [id number] [address] [place] [address] [place] CO2 [Moles/Vol] 26 mmol/L Normal 22-30 [facility] Comment on above: Order Comment: Speci men Type: BLOOD SPECIMEN Ordering Facility: [facility] Address: [address] [place] [address] Performed By: #### 2 4323-8, 11543-8, 6-3, 3023-7 #### [facility] CLIA [id number] [address] STATES OF [facility] Creatinine [Mass/Vol] 1.16 mg/dL High 0.58-0.96 [facility] Comment on above: Order Comment: Speci men Type: BLOOD SPECIMEN Ordering Facility: [facility] Address: [address] [place] [address] Performed By: #### 2 4323-8, 39928-1, 6-3, 3024-7 #### [facility] CLIA [id number] [address] Creatinine and Glomerular filtration rate.predicted panel (S/P/Bld) 55 mL/min/1.73m??? Low >=60 [facility] Comment on above: Order Comment: Speci men Type: BLOOD SPECIMEN Ordering Facility: [facility] Address: [address] [place] [address] Result Comment: Susan mated Glomerular Filtration Rate [...] actual GFR. Performed By: #### 2 4323-8, 05602-4, 6-3, 3023-7 #### [facility] CLIA [id number] 1 [place] [address] [place] Glucose [Mass/Vol] 113 mg/dL High 74-99 [facility] Comment on above: Order Comment: Donell orozco Type: BLOOD SPECIMEN Ordering Facility: [facility] Address: [address] [place], [place] [address] Result Comment: The [place] Diabetes Association (ADA) provides guidance for cutoff [...] Standards of Medical Care in Diabetes 2016, [place] [employer]. Diabetes Care. 2016.39(Suppl 1). Performed By: #### 2 4323-8, 46590-7, 6-3, 3023-7 #### [facility] CLIA [id number] [address] [place] [address] [place] Potassium [Moles/Vol] 4.0 mmol/L Normal 3.7-5.1 [facility] Comment on above: Order Comment: Donell orozco Type: BLOOD SPECIMEN Ordering Facility: [facility] Address: [address] [place] [address] Performed By: #### 2 4323-8, 86223-6, 6-3, 3023-7 #### [facility] CLIA [id number] [address] [place] [address] [place] Protein [Mass/Vol] 6.9 g/dL Normal 6.3-8.0 [facility] Comment on above: Order Comment: Speci men Type: BLOOD SPECIMEN Ordering Facility: [facility] Address: [address] [place] [address] Performed By: #### 2 4323-8, 46379-9, 6-3, 3024-7 #### [facility] CLIA [id number] [address] [place] Sodium [Moles/Vol] 141 mmol/L Normal 136-144 [facility] Comment on above: Order Comment: Speci men Type: BLOOD SPECIMEN Ordering Facility: [facility] Address: [address] [place] [address] Performed By: #### 2 4323-8, , 6-3, 3024-7 #### [facility] CLIA [id number] [address] [place] Urea nitrogen [Mass/Vol] 17 mg/dL Normal 7-21 [facility] Comment on above: Order Comment: Speci men Type: BLOOD SPECIMEN Ordering Facility: [facility] Address: [address] [place] [address] Performed By: #### 2 4323-8, 83856-5, 3, 302-7 #### [facility] CLIA [id number] [address] [place] Albumin [Mass/Vol] 3.9 g/dL Normal 3.9-4.9 [facility] Comment on above: Order Comment: Speci men Type: BLOOD SPECIMEN Ordering Facility: [facility] Address: [address] [place] [address] Performed By: #### 2 4323-8 #### [facility] CLIA [id number] [address] [place] ALP [Catalytic activity/Vol] 59 U/L Normal 34-123 [facility] Comment on above: Order Comment: Speci men Type: BLOOD SPECIMEN Ordering Facility: [facility] Address: [address] [place] [address] Performed By: #### 2 4323-8 #### [facility] CLIA [id number] [address] OF [facility] ALT With P-5'-P [Catalytic activity/Vol] 20 U/L Normal 7-38 [facility] Comment on above: Order Comment: Speci men Type: BLOOD SPECIMEN Ordering Facility: [facility] Address: [address] [place] [address] Performed By: #### 2 4323-8 #### [facility] CLIA [id number] [address] [place] Anion gap [Moles/Vol] 8 mmol/L Normal 8-15 [facility] Comment on above: Order Comment: Speci men Type: BLOOD SPECIMEN Ordering Facility: [facility] Address: [address] [place] [address] Performed By: #### 2 4323-8 #### [facility] CLIA [id number] [address] AST With P-5'-P [Catalytic activity/Vol] 18 U/L Normal 13-35 [facility] Comment on above: Order Comment: Speci men Type: BLOOD SPECIMEN Ordering Facility: [facility] Address: [address] [place] [address] Performed By: #### 2 4323-8 #### [facility] CLIA [id number] [address] [place] Bilirubin [Mass/Vol] 0.2 mg/dL Normal 0.2-1.3 [facility] Comment on above: Order Comment: Speci men Type: BLOOD SPECIMEN Ordering Facility: [facility] Address: [address] [place] [address] Performed By: #### 2 4323-8 #### [facility] CLIA [id number] [address] OF [facility] Calcium [Mass/Vol] 9.3 mg/dL Normal 8.5-10.2 [facility] Comment on above: Order Comment: Speci men Type: BLOOD SPECIMEN Ordering Facility: [facility] Address: [address] [place] [address] Performed By: #### 2 4323-8 #### [facility] CLIA [id number] [address] [place] Chloride [Moles/Vol] 109 mmol/L High 98-107 [facility] Comment on above: Order Comment: Speci men Type: BLOOD SPECIMEN Ordering Facility: [facility] Address: [address] [place] [address] Performed By: #### 2 4323-8 #### [facility] CLIA [id number] [address] [place] CO2 [Moles/Vol] 27 mmol/L Normal 22-30 [facility] Comment on above: Order Comment: Speci men Type: BLOOD SPECIMEN Ordering Facility: [facility] Address: [address] [place] [address] Performed By: #### 2 4323-8 #### [facility] CLIA [id number] [address] STATES OF [facility] Creatinine [Mass/Vol] 1.21 mg/dL High 0.58-0.96 [facility] Comment on above: Order Comment: Speci men Type: BLOOD SPECIMEN Ordering Facility: [facility] Address: [address] [place] [address] Performed By: #### 2 4323-8 #### [facility] CLIA [id number] [address] Creatinine and Glomerular filtration rate.predicted panel (S/P/Bld) 52 mL/min/1.73m??? Low >=60 [facility] Comment on above: Order Comment: Speci men Type: BLOOD SPECIMEN Ordering Facility: [facility] Address: [address] [place] [address] Result Comment: Susan mated Glomerular Filtration Rate [...] GFR. Performed By: #### 2 4323-8 #### [facility] CLIA [id number] 1 [place] [address] [place] Glucose [Mass/Vol] 116 mg/dL High 74-99 [facility] Comment on above: Order Comment: Donell orozco Type: BLOOD SPECIMEN Ordering Facility: [facility] Address: [address] [place] [address] Result Comment: The [place] [employer] Association (ADA) provides guidance for cutoff [...] Standards of Medical Care in Diabetes 2016, [place] [employer]. Diabetes Care. 2016.39(Suppl 1). Performed By: #### 2 4323-8 #### [facility] CLIA [id number] 1 [place] [address] [place] Potassium [Moles/Vol] 4.2 mmol/L Normal 3.7-5.1 [facility] Comment on above: Order Comment: Donell orozco Type: BLOOD SPECIMEN Ordering Facility: [facility] Address: [address] [place] [address] Performed By: #### 2 4323-8 #### [facility] CLIA [id number] 1 [place] [address] [place] Protein [Mass/Vol] 6.7 g/dL Normal 6.3-8.0 [facility] Comment on above: Order Comment: Donell orozco Type: BLOOD SPECIMEN Ordering Facility: [facility] Address: [address] [place] [address] Performed By: #### 2 4323-8 #### [facility] CLIA [id number] [address] Sodium [Moles/Vol] 144 mmol/L Normal 136-144 [facility] Comment on above: Order Comment: Speci men Type: BLOOD SPECIMEN Ordering Facility: [facility] Address: [address] [place] [address] Performed By: #### 2 4323-8 #### [facility] CLIA [id number] [address] Urea nitrogen [Mass/Vol] 17 mg/dL Normal 7-21 [facility] Comment on above: Order Comment: Speci men Type: BLOOD SPECIMEN Ordering Facility: [facility] Address: [address] [place] [address] Performed By: #### 2 4323-8 #### [facility] CLIA [id number] [address] OF [facility] HISTORY PHYSICALon HISTORY PHYSICAL HNO ID: [id number] Author: JOSEFINA HELLER PA-C Service: Hospital Medicine Author Type: Physician Chief Of Pediatric Urology Type: H&P Filed: 07/03/2024 06:04 Note Text: DEPARTMENT OF HOSPITAL MEDICINE HISTORY AND PHYSICAL EXAM SERVICE DATE: 07/03/2024 SERVICE TIME: 5:10 AM Primary Care Physician: No primary care provider on file. NIGHT AND WEEKEND COVERAGE: From 7am - 7pm, please call [phone] After 7pm, please call cross cover pager #[phone] Subjective CHIEF COMPLAINT: Back pain HPI: This [...] MEDICAL HISTORY Diagnosis Date Anxiety Atrial fibrillation ([facility]) 07/03/2024 CAD (coronary artery disease) 07/03/2024 Congestive heart failure ([facility]) 07/03/2024 Controlled type 2 diabetes mellitus without complication, without long-term current use of insulin ([facility]) 07/03/2024 COPD (chronic obstructive pulmonary disease) ([facility]) 07/03/2024 Depression Gastric mass Hypertension Hypothyroid ELOY (obstructive sleep apnea) 07/03/[address] bangura . pacemaker [facility] Sick sinus syndrome ([facility]) Sleep apnea uses cpap at night PAST SURGICAL HISTORY Procedure Laterality Date ANESTHESIA LUMBAR REGION NOS 02/07/2016 L4-L5 fusion; [facility] APPENDECTOMY CARPAL TUNNEL left HYSTERECTOMY HX LAPAROSCOPY [...] use: No Comment: Heavy EtOH use [email or web address]. HOME MEDICATIONS: Prior to Admission Medications Prescriptions [...] mg by (more content not included)... Normal [facility] Magnesium SerPl-mCncon 07-03 Magnesium [Mass/Vol] 2.0 mg/dL Normal 1.7-2.3 [facility] Comment on above: Order Comment: Speci men Type: BLOOD SPECIMEN Ordering Facility: [facility] Address: [address] [place], [place] [address] Performed By: #### 2 4323-8, 86715-2, 3016-3, 3024-7 #### [facility] CLIA [id number] [address] [place] T3 SerPl-mCncon 07-03-2024 T3 [Mass/Vol] 146 ng/dL Normal 79-165 [facility] Comment on above: Order Comment: Speci men Type: BLOOD SPECIMEN Ordering Facility: [facility] Address: [address] [place] [address] Performed By: #### 3 053-6 #### [facility] CLIA [id number] [address] OF [place] T4 Free SerPl-mCncon 025 Free T4 [Mass/Vol] 0.9 ng/dL Normal 0.9-1.7 [facility] Comment on above: Order Comment: Speci men Type: BLOOD SPECIMEN Ordering Facility: [facility] Address: [address] [place] [address] Performed By: #### 2 4323-8, 53422-5, 3016-3, 3024-7 #### [facility] CLIA [id number] [address] OF [facility] THERAPY NTon 07-03-2024 THERAPY NT HNO ID: [id number] Author: LEO SERRA OTR/Anne Service: Occupational Therapy Author Type: Occupational Therapist Type: Therapy (PT/OT/Speech/Resp) Filed: 07/03/2024 15:40 Note Text: OCCUPATIONAL THERAPY MISSED VISIT SERVICE DATE: 07/03/2024 SERVICE TIME: 1538 ROOM: [place] [address] Patient not seen due to Clinical Appropriateness (on BR, imaging pending.). SIGNATURE: LEXA Oliveira PATIENT NAME: Ramses Bradshaw DATE: July 03, 2024 TIME: 3:39 PM Normal [facility] THERAPY NT HNO ID: [id number] Author: SUMIT ARRIOLA, PT Service: Physical Therapy Author Type: Physical Therapist Type: Therapy (PT/OT/Speech/Resp) Filed: 07/03/2024 08:18 Note Text: PHYSICAL THERAPY MISSED VISIT SERVICE DATE: 07/03/2024 SERVICE TIME: 817 ROOM: [place] [address] Patient not seen due to Clinical Appropriateness (bedrest pending spine imaging per ortho). Will reattempt as available and appropriate. SIGNATURE: Sumit Arriola PT PATIENT NAME: Ramses Bradshaw DATE: July 03, 2024 TIME: 8:18 AM Normal [facility] TSH SerPl-aCncon 07-03-2024 TSH Qn 8.130 m[IU]/L High 0.270-4.200 [facility] Comment on above: Order Comment: Speci men Type: BLOOD SPECIMEN Ordering Facility: [facility] Address: [address] [place] [address] Performed By: #### 2 4323-8, 77216-9, 3016-3, 3024-7 #### [facility] CLIA [id number] [address] STATES OF [facility] XR CHEST 1V FRONTALon 2024 XR CHEST [...] apparatus, as above. No acute airspace disease. Application Security Consultant: CHERIE Transcribe Date/Time: Jul 03 2024 4:06P Dictated by : ISABELA FELIPE MD This examination was interpreted and the report reviewed and electronically signed by: ISABELA FELIPE MD on Jul 03 2024 4:07PM EST [id number] Normal [facility] Absolute lymphocyte countOrd ered By: Remus Huddleston on 07-02-2024 Lymphocytes Auto (Unsp spec) [#/Vol] 3.18 10*3/uL 0.83-4.51 [facility] Absolute neutrophil countOrd ered By: Remus Flaquito on 07-02-2024 Absolute neutrophil count 4.0 X10^3/uL 2.0-7.7 [facility] Anion gap [Moles/Vol]Ordered By: [facility] H[facility]eston on 07-02-2024 Anion gap in Serum or Plasma 10 - [facility] Anion gap in Serum or Plasma Ordered By: [facility] on 07-02-2024 Anion gap [Moles/Vol] 10 mmol/L 07-23 [facility] Automated lymphocyte count a s percentage of total leukocytesOrdered By: Remus Huddleston on 07-02-2024 Lymphocytes/100 WBC Auto (Unsp spec) 40.0 % [facility] BUN/creatinine ratioOrdered By: [facility] Huddleston on 07-02-2024 Urea nitrogen/Creatinine [Mass ratio] 14.9 mg/mg 12-28 [facility] BUN/creatinine ratio 14.9 [facility] Basic Metabolic Profile (BMP )on 07-02-2024 BUN/CRE 14.9 RATIO Normal - [facility] Comment on above: Performed By: #### L 100.0100, L500.2500 ####[facility] [address] [place], [address] Calcium [Mass/Vol] 9.8 mg/dL Normal 7.6-11.0 [facility] Comment on above: Performed By: #### L 100.0100, L500.2500 ####[facility] [address] [place], [address] Chloride [Moles/Vol] 105 mmol/L Normal 98-108 [facility] Comment on above: Performed By: #### L 100.0100, L500.2500 ####[facility] [address] [place], [address] CO2 [Moles/Vol] 25.2 mmol/L Normal 21.0-32.0 [facility] Comment on above: Performed By: #### L 100.0100, L500.2500 ####[facility] [address] [place], [address] Creatinine [Mass/Vol] 1.22 mg/dL High 0.70-1.20 [facility] Comment on above: Performed By: #### L 100.0100, L500.2500 ####[facility] [address] [place], [address] ECRCL 57.43 ml/min Normal 50-250 [facility] Comment on above: Performed By: #### L 100.0100, L500.2500 ####[facility] [address] [place], [address] GAP 10 Normal 5-15 [facility] Comment on above: Performed By: #### L 100.0100, L500.2500 ####[facility] [address] [place], [address] GFR/1.73 sq M.predicted among non-blacks MDRD (S/P/Bld) [Vol rate/Area] 51 mL/min/{1.73_m2} Low >60 [facility] Comment on above: Result Comment: mL/m in/1.73m2 CKD-EPI Creatinine Equation (2020) Performed By: #### L 100.0100, L500.2500 ####[facility] [address] [place], [address] Glucose [Mass/Vol] 129 mg/dL High 70-99 [facility] Comment on above: Performed By: #### L 100.0100, L500.2500 ####[facility] [address] [place], [address] Potassium [Moles/Vol] 4.5 mmol/L Normal 3.3-5.1 [facility] Comment on above: Performed By: #### L 100.0100, L500.2500 ####[facility] [address] [place], [address] Sodium [Moles/Vol] 140 mmol/L Normal 133-145 [facility] Comment on above: Performed By: #### L 100.0100, L500.2500 ####[facility] [address] [place], [address] Urea nitrogen [Mass/Vol] 18 mg/dL Normal 4-19 [facility] Comment on above: Performed By: #### L 100.0100, L500.2500 ####[facility] [address] [place], [address] Basophil percentageOrdered B y: Remus Ungur on 07-02-2024 Basophils/100 WBC (Bld) 0.4 % 0-1 [facility] Basophil percentage 0.4 % 0-1 [facility] CBC W/Diff, Automatedon 06-10 Absolute Lymph 3.18 X10 3/uL Normal 0.83-4.51 [facility] Comment on above: Performed By: #### L 100.0100, L500.2500 ####[facility] [address] [place], [address] Absolute Neut 4.0 X10 3/uL Normal 2.0-7.7 [facility] Comment on above: Performed By: #### L 100.0100, L500.2500 ####[facility] [address] [place], [address] Basophils/100 WBC (Bld) 0.4 % Normal 0-1 [facility] Comment on above: Performed By: #### L 100.0100, L500.2500 ####[facility] [address] [place], [address] Eosinophils/100 WBC (Bld) 2.5 % Normal 0-5 [facility] Comment on above: Performed By: #### L 100.0100, L500.2500 ####[facility] [address] [place], [address] Erythrocyte distribution width (RBC) [Ratio] 13.6 % Normal 11.6-14.6 [facility] Comment on above: Performed By: #### L 100.0100, L500.2500 ####[facility] [address] [place], [address] Hematocrit (Bld) [Volume fraction] 41.3 % Normal 37-47 [facility] Comment on above: Performed By: #### L 100.0100, L500.2500 ####[facility] [address] [place], [address] Hemoglobin (Bld) [Mass/Vol] 13.5 g/dL Normal 12.0-15.0 [facility] Comment on above: Performed By: #### L 100.0100, L500.2500 ####[facility] [address] [place], [address] IG% 0.500 Normal 0.0-0.9 [facility] Comment on above: Result Comment: IG% - Immature Granulocytes (promyelocytes, myelocytes andmetamyelocytes) > 1% indicates that a LEFT SHIFT is Present. Performed By: #### L 100.0100, L500.2500 ####[facility] [address] [place], [address] Lymphocytes/100 WBC (Bld) 40.0 % Normal 19-41 [facility] Comment on above: Performed By: #### L 100.0100, L500.2500 ####[facility] [address] [place], [address] MCH (RBC) [Entitic mass] 28.7 pg Normal 27.0-32.0 [facility] Comment on above: Performed By: #### L 100.0100, L500.2500 ####[facility] [address] [place], [address] MCHC (RBC) [Mass/Vol] 32.7 g/dL Normal 32-36 [facility] Comment on above: Performed By: #### L 100.0100, L500.2500 ####[facility] [address] [place], [address] MCV (RBC) [Entitic vol] 87.9 fL Normal 81-99 [facility] Comment on above: Performed By: #### L 100.0100, L500.2500 ####[facility] [address] [place], [address] Monocytes/100 WBC (Bld) 6.4 % Normal 0-10 [facility] Comment on above: Performed By: #### L 100.0100, L500.2500 ####[facility] [address] [place], [address] Neutrophils/100 WBC (Bld) 50.2 % Normal 47-70 [facility] Comment on above: Performed By: #### L 100.0100, L500.2500 ####[facility] [address] [place], [address] Nucleated RBC (Bld) [#/Vol] 0 10*3/uL Normal 0-5 [facility] Comment on above: Performed By: #### L 100.0100, L500.2500 ####[facility] [address] [place], [address] Platelet mean volume (Bld) [Entitic vol] 9.3 fL Normal 6.2-12.0 [facility] Comment on above: Performed By: #### L 100.0100, L500.2500 ####[facility] [address] [place], [address] Platelets (Bld) [#/Vol] 228 10*3/uL Normal 150-450 [facility] Comment on above: Performed By: #### L 100.0100, L500.2500 ####[facility] [address] [place], [address] RBC (Bld) [#/Vol] 4.70 10*6/uL Normal 4.2-5.4 [facility] Comment on above: Performed By: #### L 100.0100, L500.2500 ####[facility] [address] [place], [address] RDW SD 43.6 fl Normal 35.1-43.9 [facility] Comment on above: Performed By: #### L 100.0100, L500.2500 ####[facility] [address] [place], [address] WBC (Bld) [#/Vol] 8.0 10*3/uL Normal 4.4-11.0 [facility] Comment on above: Performed By: #### L 100.0100, L500.2500 ####[facility] [address] [place], [address] Calcium [Mass/Vol]Ordered By : Kati Huddleston on 07-02-2024 Serum or plasma calcium measurement (mass/volume) 9.8 mg/dL 7.6-11.0 [facility] Carbon dioxide, total [Moles /volume] in Central venous bloodOrdered By: Kati Huddleston on 07-02-2024 CO2 [Moles/Vol] 25.2 mmol/L 21.0-32.0 [facility] Carbon dioxide, total [Moles/volume] in Central venous blood 25.2 mmol/L 21.0-32.0 [facility] Chloride assayOrdered By: Shavon Huddleston on 07-02-2024 Chloride [Moles/Vol] 105 mmol/L 98-108 [facility] Chloride assay 105 mmol/L 98-108 [facility] Creatinine [Mass/Vol]Ordered By: Kati Huddleston on 07-02-2024 Serum creatinine measurement (mass/volume) 1.22 mg/dL High 0.70-1.20 [facility] Emergency Department Summary on 07-02-2024 Emergency Department Summary Normal [facility] Eosinophil percentageOrdered By: Kati Huddleston on 07-02-2024 Eosinophils/100 WBC (Bld) 2.5 % 0-5 [facility] Eosinophil percentage 2.5 % 0-5 [facility] Erythrocyte distribution wid th (RBC) [Ratio]Ordered By: Kati Huddleston on 07-02-2024 Erythrocyte distribution width ratio 13.6 % 11.6-14.6 [facility] Erythrocyte distribution width standard deviation 43.6 fl 35.1-43.9 [facility] Erythrocyte distribution wid th ratioOrdered By: Kati Huddleston on 07-02-2024 Erythrocyte distribution width (RBC) [Ratio] 13.6 % 11.6-14.6 [facility] Erythrocyte distribution wid th standard deviationOrdered By: Kati Huddleston on 07-02-2024 Erythrocyte distribution width (RBC) [Ratio] 43.6 fl 35.1-43.9 [facility] Estimation of creatinine jennifer aranceOrdered By: Kati Huddleston on 07-02-2024 Estimation of creatinine clearance 57.43 ml/min 50-250 [facility] GFR/1.73 sq M.predicted barak g non-blacks MDRD (S/P/Bld) [Vol rate/Area]Ordered By: Kati Huddleston on 07-02-2024 Glomerular filtration rate (GFR) estimation/1.73 sq m using serum, plasma, or whole b 51 Low >60 [facility] Glomerular filtration rate ( GFR) estimation/1.73 sq m using serum, plasma, or whole bOrdered By: Kati Huddleston on 07-02-2024 GFR/1.73 sq M.predicted among non-blacks MDRD (S/P/Bld) [Vol rate/Area] 51 mL/min/{1.73_m2} Low >60 [facility] Glucose [Mass/Vol]Ordered By : Kati Huddleston on 07-02-2024 Serum glucose measurement (mass/volume) 129 mg/dL High 70-99 [facility] Hematocrit Auto (Bld) [Volum e fraction]Ordered By: Kati Huddleston on 07-02-2024 Hematocrit (Bld) [Volume fraction] 41.3 % 37-47 [facility] Automated blood hematocrit (percentage) 41.3 % 37-47 [facility] Hemoglobin measurementOrdere d By: Kati Huddleston on 07-02-2024 Hemoglobin (Bld) [Mass/Vol] 13.5 g/dL 12.0-15.0 [facility] Hemoglobin measurement 13.5 g/dL 12.0-15.0 [facility] Immature granulocytes/100 WB C Auto (Bld)Ordered By: Kati Huddleston on 07-02-2024 Immature granulocytes/100 WBC (Bld) 0.500 % 0.0-0.9 [facility] Automated immature granulocyte percentage 0.500 % 0.0-0.9 [facility] Lymphocytes Auto (Unsp spec) [#/Vol]Ordered By: Kati Huddleston on 07-02-2024 Absolute lymphocyte count 3.18 X10^3/uL 0.83-4.51 [facility] Lymphocytes/100 WBC Auto (Un sp spec)Ordered By: Kati Huddleston on 07-02-2024 Automated lymphocyte count as percentage of total leukocytes 40.0 % 19-41 [facility] MCV (RBC) [Entitic vol]Order ed By: Kati Huddleston on 07-02-2024 MCV (mean corpuscular volume) determination 87.9 fL 81-99 [facility] MCV (mean corpuscular volume ) determinationOrdered By: Kati Huddleston on 07-02-2024 MCV (RBC) [Entitic vol] 87.9 fL 81-99 [facility] Mean corpuscular hemoglobin (MCH) determinationOrdered By: Kati Huddleston on 07-02-2024 MCH (RBC) [Entitic mass] 28.7 pg 27.0-32.0 [facility] Mean corpuscular hemoglobin (MCH) determination 28.7 pg 27.0-32.0 [facility] Mean corpuscular hemoglobin concentration (MCHC) determinationOrdered By: Kati Huddleston on 07-02-2024 Mean corpuscular hemoglobin concentration (MCHC) determination 32.7 g/dL 32-36 [facility] Mean platelet volume determi nationOrdered By: Kati Ungrogelio on 07-02-2024 Mean platelet volume determination 9.3 fl 6.2-12.0 [facility] Monocyte percentageOrdered B y: Kati Huddleston on 07-02-2024 Monocytes/100 WBC (Bld) 6.4 % 0-10 [facility] Monocyte percentage 6.4 % 0-10 [facility] Neutrophil percentageOrdered By: Kati Huddleston on 07-02-2024 Neutrophils/100 WBC (Bld) 50.2 % 47-70 [facility] Neutrophil percentage 50.2 % 47-70 [facility] Nucleated red blood cell per centageOrdered By: Kati Huddleston on 07-02-2024 Nucleated red blood cell percentage 0 % 0-5 [facility] Platelet countOrdered By: Shavon Huddleston on 07-02-2024 Platelets (Bld) [#/Vol] 228 10*3/uL 150-450 [facility] Platelet count 228 K/mm3 150-450 [facility] Potassium (Unsp spec) [Mass/ Vol]Ordered By: Kati Huddleston on 07-02-2024 Potassium measurement (mass/volume) 4.5 mmol/L 3.3-5.1 [facility] Potassium measurement (mass/ volume)Ordered By: Kati Huddleston on 07-02-2024 Potassium (Unsp spec) [Mass/Vol] 4.5 mmol/L 3.3-5.1 [facility] RBC Auto (Bld) [#/Vol]Ordere d By: Kati Huddleston on 07-02-2024 RBC (Bld) [#/Vol] 4.70 10*6/uL 4.2-5.4 [facility] Automated blood erythrocyte count 4.70 M/mm3 4.2-5.4 [facility] Serum creatinine measurement (mass/volume)Ordered By: Kati Huddleston on 07-02-2024 Creatinine [Mass/Vol] 1.22 mg/dL High 0.70-1.20 [facility] Serum glucose measurement (m ass/volume)Ordered By: Remus Huddleston on 07-02-2024 Glucose [Mass/Vol] 129 mg/dL High 70-99 [facility] Serum or plasma calcium heather urement (mass/volume)Ordered By: Remus Ungrogelio on 07-02-2024 Calcium [Mass/Vol] 9.8 mg/dL 7.6-11.0 [facility] Serum or plasma urea nitroge n measurement (mass/volume)Ordered By: Remus Ungrogelio on 07-02-2024 Urea nitrogen [Mass/Vol] 18 mg/dL 06-27 [facility] Sodium levelOrdered By: Antoinette s Flaquito on 07-02-2024 Sodium [Moles/Vol] 140 mmol/L 133-145 [facility] Sodium level 140 mmol/L 133-145 [facility] Urea nitrogen [Mass/Vol]Orde red By: Remus Ungrogelio on 07-02-2024 Serum or plasma urea nitrogen measurement (mass/volume) 18 mg/dL 06-27 [facility] White blood cell (WBC) count Ordered By: Kati Huddleston on 07-02-2024 WBC (Bld) [#/Vol] 8.0 10*3/uL 4.4-11.0 [facility] White blood cell (WBC) count 8.0 K/mm3 4.4-11.0 [facility] Emergency Department Summary on 06-29-2024 Emergency Department Summary Normal [facility] Duplex ultrasound of carotid artery reportOrdered By: Keon France on 06-28-2024 Study report [facility] Work Phone: Carotid Duplex Ultrasoundon 06-26-2024 Carotid Duplex Ultrasound Normal [facility] 12 Lead EKGon 06-13-2024 12 Lead EKG Normal [facility] Emergency Department Summary on 06-13-2024 Emergency Department Summary Normal [facility] Scapulaon 06-13-2024 Scapula Normal [facility] Spine Thoracic without Contr ason 06-13-2024 Spine Thoracic without Contras Normal [facility] Absolute lymphocyte countOrd ered By: Kareen Bradshaw on 06-11-2024 Lymphocytes Auto (Unsp spec) [#/Vol] 3.53 10*3/uL 0.83-4.51 [facility] Absolute neutrophil countOrd ered By: Kareen Bradshaw on 06-11-2024 Absolute neutrophil count 6.1 X10^3/uL 2.0-7.7 [facility] Anion gap [Moles/Vol]Ordered By: Kareen Bradshaw on 06-11-2024 Anion gap in Serum or Plasma 12 07-23 [facility] Anion gap in Serum or Plasma Ordered By: Kareen Bradshaw on 06-11-2024 Anion gap [Moles/Vol] 12 mmol/L 07-23 [facility] Automated lymphocyte count a s percentage of total leukocytesOrdered By: Kareen Bradshaw on 06-11-2024 Lymphocytes/100 WBC Auto (Unsp spec) 32.7 % [facility] BUN/creatinine ratioOrdered By: Kareen Bradshaw on 06-11-2024 Urea nitrogen/Creatinine [Mass ratio] 18.0 mg/mg 12-28 [facility] BUN/creatinine ratio 18.0 RATIO 12-28 [facility] Basic Metabolic Profile (BMP )on 06-11-2024 BUN/CRE 18.0 RATIO Normal - [facility] Comment on above: Performed By: #### L 100.0100, L501.9520, L503.7505, L500.2500 ####[facility] [address] [place], [address] Calcium [Mass/Vol] 9.5 mg/dL Normal 7.6-11.0 [facility] Comment on above: Performed By: #### L 100.0100, L501.9520, L503.7505, L500.2500 ####[facility] [address] [place], [address] Chloride [Moles/Vol] 107 mmol/L Normal 98-108 [facility] Comment on above: Performed By: #### L 100.0100, L501.9520, L503.7505, L500.2500 ####[facility] [address] [place], [address] CO2 [Moles/Vol] 23.2 mmol/L Normal 21.0-32.0 [facility] Comment on above: Performed By: #### L 100.0100, L501.9520, L503.7505, L500.2500 ####[facility] [address] [place], [address] Creatinine [Mass/Vol] 1.20 mg/dL Normal 0.70-1.20 [facility] Comment on above: Performed By: #### L 100.0100, L501.9520, L503.7505, L500.2500 ####[facility] [address] [place], [address] GAP 12 Normal 5-15 [facility] Comment on above: Performed By: #### L 100.0100, L501.9520, L503.7505, L500.2500 ####[facility] [address] [place], [address] GFR/1.73 sq M.predicted among non-blacks MDRD (S/P/Bld) [Vol rate/Area] 52 mL/min/{1.73_m2} Low >60 [facility] Comment on above: Result Comment: mL/m in/1.73m2 CKD-EPI Creatinine Equation (2020) Performed By: #### L 100.0100, L501.9520, L503.7505, L500.2500 ####[facility] [address] [place], [address] Glucose [Mass/Vol] 112 mg/dL High 70-99 [facility] Comment on above: Performed By: #### L 100.0100, L501.9520, L503.7505, L500.2500 ####[facility] [address] [place], [address] Potassium [Moles/Vol] 4.9 mmol/L Normal 3.3-5.1 [facility] Comment on above: Performed By: #### L 100.0100, L501.9520, L503.7505, L500.2500 ####[facility] [address] [place], [address] Sodium [Moles/Vol] 141 mmol/L Normal 133-145 [facility] Comment on above: Performed By: #### L 100.0100, L501.9520, L503.7505, L500.2500 ####[facility] [address] [place], [address] Urea nitrogen [Mass/Vol] 22 mg/dL High 4-19 [facility] Comment on above: Performed By: #### L 100.0100, L501.9520, L503.7505, L500.2500 ####[facility] [address] [place], [address] Basophil percentageOrdered B y: Kareen Bradshaw on 06-11-2024 Basophils/100 WBC (Bld) 0.5 % 0-1 [facility] Basophil percentage 0.5 % 0-1 [facility] CBC W/Diff, Automatedon 04-0 Absolute Lymph 3.53 X10 3/uL Normal 0.83-4.51 [facility] Comment on above: Performed By: #### L 100.0100, L501.9520, L503.7505, L500.2500 ####[facility] [address] [place], [address] Absolute Neut 6.1 X10 3/uL Normal 2.0-7.7 [facility] Comment on above: Performed By: #### L 100.0100, L501.9520, L503.7505, L500.2500 ####[facility] [address] [place], [address] Basophils/100 WBC (Bld) 0.5 % Normal 0-1 [facility] Comment on above: Performed By: #### L 100.0100, L501.9520, L503.7505, L500.2500 ####[facility] [address] [place], [address] Eosinophils/100 WBC (Bld) 2.8 % Normal 0-5 [facility] Comment on above: Performed By: #### L 100.0100, L501.9520, L503.7505, L500.2500 ####[facility] [address] [place], [address] Erythrocyte distribution width (RBC) [Ratio] 14.0 % Normal 11.6-14.6 [facility] Comment on above: Performed By: #### L 100.0100, L501.9520, L503.7505, L500.2500 ####[facility] [address] [place], [address] Hematocrit (Bld) [Volume fraction] 42.1 % Normal 37-47 [facility] Comment on above: Performed By: #### L 100.0100, L501.9520, L503.7505, L500.2500 ####[facility] [address] [place], [address] Hemoglobin (Bld) [Mass/Vol] 13.7 g/dL Normal 12.0-15.0 [facility] Comment on above: Performed By: #### L 100.0100, L501.9520, L503.7505, L500.2500 ####[facility] [address] [place], [address] IG% 0.600 Normal 0.0-0.9 [facility] Comment on above: Result Comment: IG% - Immature Granulocytes (promyelocytes, myelocytes andmetamyelocytes) > 1% indicates that a LEFT SHIFT is Present. Performed By: #### L 100.0100, L501.9520, L503.7505, L500.2500 ####[facility] [address] [place], [address] Lymphocytes/100 WBC (Bld) 32.7 % Normal 19-41 [facility] Comment on above: Performed By: #### L 100.0100, L501.9520, L503.7505, L500.2500 ####[facility] [address] [place], [address] MCH (RBC) [Entitic mass] 28.7 pg Normal 27.0-32.0 [facility] Comment on above: Performed By: #### L 100.0100, L501.9520, L503.7505, L500.2500 ####[facility] [address] [place], [address] MCHC (RBC) [Mass/Vol] 32.5 g/dL Normal 32-36 [facility] Comment on above: Performed By: #### L 100.0100, L501.9520, L503.7505, L500.2500 ####[facility] [address] [place], [address] MCV (RBC) [Entitic vol] 88.1 fL Normal 81-99 [facility] Comment on above: Performed By: #### L 100.0100, L501.9520, L503.7505, L500.2500 ####[facility] [address] [place], [address] Monocytes/100 WBC (Bld) 7.4 % Normal 0-10 [facility] Comment on above: Performed By: #### L 100.0100, L501.9520, L503.7505, L500.2500 ####[facility] [address] [place], [address] Neutrophils/100 WBC (Bld) 56.0 % Normal 47-70 [facility] Comment on above: Performed By: #### L 100.0100, L501.9520, L503.7505, L500.2500 ####[facility] [address] [place], [address] Nucleated RBC (Bld) [#/Vol] 0 10*3/uL Normal 0-5 [facility] Comment on above: Performed By: #### L 100.0100, L501.9520, L503.7505, L500.2500 ####[facility] [address] [place], [address] Platelet mean volume (Bld) [Entitic vol] 9.6 fL Normal 6.2-12.0 [facility] Comment on above: Performed By: #### L 100.0100, L501.9520, L503.7505, L500.2500 ####[facility] [address] [place], [address] Platelets (Bld) [#/Vol] 229 10*3/uL Normal 150-450 [facility] Comment on above: Performed By: #### L 100.0100, L501.9520, L503.7505, L500.2500 ####[facility] [address] [place], [address] RBC (Bld) [#/Vol] 4.78 10*6/uL Normal 4.2-5.4 [facility] Comment on above: Performed By: #### L 100.0100, L501.9520, L503.7505, L500.2500 ####[facility] [address] [place], [address] RDW SD 45.2 fl High 35.1-43.9 [facility] Comment on above: Performed By: #### L 100.0100, L501.9520, L503.7505, L500.2500 ####[facility] [address] [place], [address] WBC (Bld) [#/Vol] 10.8 10*3/uL Normal 4.4-11.0 [facility] Comment on above: Performed By: #### L 100.0100, L501.9520, L503.7505, L500.2500 ####[facility] [address] [place], [address] Calcium [Mass/Vol]Ordered By : Kareen Bradshaw on 06-11-2024 Serum or plasma calcium measurement (mass/volume) 9.5 mg/dL 7.6-11.0 [facility] Carbon dioxide, total [Moles /volume] in Central venous bloodOrdered By: Kareen Bradshaw on 06-11-2024 CO2 [Moles/Vol] 23.2 mmol/L 21.0-32.0 [facility] Carbon dioxide, total [Moles/volume] in Central venous blood 23.2 mmol/L 21.0-32.0 [facility] Cardiology Visit Reporton Cardiology Visit Report Normal [facility] Chloride assayOrdered By: Will Bradshaw on 06-11-2024 Chloride [Moles/Vol] 107 mmol/L 98-108 [facility] Chloride assay 107 mmol/L 98-108 [facility] Creatinine [Mass/Vol]Ordered By: Kareen Bradshaw on 06-11-2024 Serum creatinine measurement (mass/volume) 1.20 mg/dL 0.70-1.20 [facility] Eosinophil percentageOrdered By: Kareen Bradshaw on 06-11-2024 Eosinophils/100 WBC (Bld) 2.8 % 0-5 [facility] Eosinophil percentage 2.8 % 0-5 [facility] Erythrocyte distribution wid th (RBC) [Ratio]Ordered By: Kareen Bradshaw on 06-11-2024 Erythrocyte distribution width ratio 14.0 % 11.6-14.6 [facility] Erythrocyte distribution width standard deviation 45.2 fl High 35.1-43.9 [facility] Erythrocyte distribution wid th ratioOrdered By: Kareen Bradshaw on 06-11-2024 Erythrocyte distribution width (RBC) [Ratio] 14.0 % 11.6-14.6 [facility] Erythrocyte distribution wid th standard deviationOrdered By: Kareen Bradshaw on 06-11-2024 Erythrocyte distribution width (RBC) [Ratio] 45.2 fl High 35.1-43.9 [facility] GFR/1.73 sq M.predicted barak g non-blacks MDRD (S/P/Bld) [Vol rate/Area]Ordered By: Kareen Bradshaw on 06-11-2024 Glomerular filtration rate (GFR) estimation/1.73 sq m using serum, plasma, or whole b 52 Low >60 [facility] Glomerular filtration rate ( GFR) estimation/1.73 sq m using serum, plasma, or whole bOrdered By: Kareen Bradshaw on 06-11-2024 GFR/1.73 sq M.predicted among non-blacks MDRD (S/P/Bld) [Vol rate/Area] 52 mL/min/{1.73_m2} Low >60 [facility] Glucose [Mass/Vol]Ordered By : Kareen Bradshaw on 06-11-2024 Serum glucose measurement (mass/volume) 112 mg/dL High 70-99 [facility] Hematocrit Auto (Bld) [Volum e fraction]Ordered By: Kareen Bradshaw on 06-11-2024 Hematocrit (Bld) [Volume fraction] 42.1 % 37-47 [facility] Automated blood hematocrit (percentage) 42.1 % 37-47 [facility] Hemoglobin measurementOrdere d By: Kareen Bradshaw on 06-11-2024 Hemoglobin (Bld) [Mass/Vol] 13.7 g/dL 12.0-15.0 [facility] Hemoglobin measurement 13.7 g/dL 12.0-15.0 [facility] Immature granulocytes/100 WB C Auto (Bld)Ordered By: Kareen Bradshaw on 06-11-2024 Immature granulocytes/100 WBC (Bld) 0.600 % 0.0-0.9 [facility] Automated immature granulocyte percentage 0.600 % 0.0-0.9 [facility] L503.7505on 06-11-2024 Natriuretic peptide B (Bld) [Mass/Vol] 65 pg/mL Normal <=900 [facility] Comment on above: Result Comment: Hear t Failure Unlikely: < 300 pg/mLHeart Failure Likely< 50 Years: > 450 pg/mL50-75 Years: > 900 pg/mL>75 Years: > 1800 pg/mL Performed By: #### L 100.0100, L501.9520, L503.7505, L500.2500 ####[facility] [address] [place], [address] Lymphocytes Auto (Unsp spec) [#/Vol]Ordered By: Kareen Bradshaw on 06-11-2024 Absolute lymphocyte count 3.53 X10^3/uL 0.83-4.51 [facility] Lymphocytes/100 WBC Auto (Un sp spec)Ordered By: Kareen Bradshaw on 06-11-2024 Automated lymphocyte count as percentage of total leukocytes 32.7 % 19-41 [facility] MCV (RBC) [Entitic vol]Order ed By: Kareen Bradshaw on 06-11-2024 MCV (mean corpuscular volume) determination 88.1 fL 81-99 [facility] MCV (mean corpuscular volume ) determinationOrdered By: Kareen Bradshaw on 06-11-2024 MCV (RBC) [Entitic vol] 88.1 fL 81-99 [facility] Mean corpuscular hemoglobin (MCH) determinationOrdered By: Kareen Bradshaw on 06-11-2024 MCH (RBC) [Entitic mass] 28.7 pg 27.0-32.0 [facility] Mean corpuscular hemoglobin (MCH) determination 28.7 pg 27.0-32.0 [facility] Mean corpuscular hemoglobin concentration (MCHC) determinationOrdered By: Kareen Bradshaw on 06-11-2024 Mean corpuscular hemoglobin concentration (MCHC) determination 32.5 g/dL 32-36 [facility] Mean platelet volume determi nationOrdered By: Kareen Bradshaw on 06-11-2024 Mean platelet volume determination 9.6 fl 6.2-12.0 [facility] Monocyte percentageOrdered B y: Kareen Bradshaw on 06-11-2024 Monocytes/100 WBC (Bld) 7.4 % 0-10 [facility] Monocyte percentage 7.4 % 0-10 [facility] Neutrophil percentageOrdered By: Kareen Bradshaw on 06-11-2024 Neutrophils/100 WBC (Bld) 56.0 % 47-70 [facility] Neutrophil percentage 56.0 % 47-70 [facility] No Panel InformationOrdered By: Kareen Bradshaw on 06-11-2024 65 pg/mL <900 [facility] Nucleated red blood cell per centageOrdered By: Kareen Bradshaw on 06-11-2024 Nucleated red blood cell percentage 0 % 0-5 [facility] Pacemaker Checkon 06-11-2024 Pacemaker Check Normal [facility] Platelet countOrdered By: Will Bradshaw on 06-11-2024 Platelets (Bld) [#/Vol] 229 10*3/uL 150-450 [facility] Platelet count 229 K/mm3 150-450 [facility] Potassium (Unsp spec) [Mass/ Vol]Ordered By: Kareen Bradshaw on 06-11-2024 Potassium measurement (mass/volume) 4.9 mmol/L 3.3-5.1 [facility] Potassium measurement (mass/ volume)Ordered By: Kareen Bradshaw on 06-11-2024 Potassium (Unsp spec) [Mass/Vol] 4.9 mmol/L 3.3-5.1 [facility] RBC Auto (Bld) [#/Vol]Ordere d By: Kareen Bradshaw on 06-11-2024 RBC (Bld) [#/Vol] 4.78 10*6/uL 4.2-5.4 [facility] Automated blood erythrocyte count 4.78 M/mm3 4.2-5.4 [facility] Serum creatinine measurement (mass/volume)Ordered By: Kareen Bradshaw on 06-11-2024 Creatinine [Mass/Vol] 1.20 mg/dL 0.70-1.20 [facility] Serum glucose measurement (m ass/volume)Ordered By: Kareen Bradshaw on 06-11-2024 Glucose [Mass/Vol] 112 mg/dL High 70-99 [facility] Serum or plasma calcium heather urement (mass/volume)Ordered By: Kareen Bradshaw on 06-11-2024 Calcium [Mass/Vol] 9.5 mg/dL 7.6-11.0 [facility] Serum or plasma urea nitroge n measurement (mass/volume)Ordered By: Kareen Bradshaw on 06-11-2024 Urea nitrogen [Mass/Vol] 22 mg/dL High 4-19 [facility] Sodium levelOrdered By: Carina Bradshaw on 06-11-2024 Sodium [Moles/Vol] 141 mmol/L 133-145 [facility] Sodium level 141 mmol/L 133-145 [facility] TSH DL <= 0.005 mIU/L QnOrde red By: Kareen Bradshaw on 06-11-2024 TSH Qn 3.650 uIU/mL 0.300-4.200 [facility] Serum or plasma thyroid stimulating hormone (TSH) measurement by high sensitivity met 3.650 uIU/mL 0.300-4.200 [facility] Thyroid Stim Hormone (TSH)on 06-11-2024 TSH 3.650 uIU/mL Normal 0.300-4.200 [facility] Comment on above: Performed By: #### L 100.0100, L501.9520, L503.7505, L500.2500 ####[facility] [address] [place], [place], [id number] Urea nitrogen [Mass/Vol]Orde red By: Kareen Bradshaw on 06-11-2024 Serum or plasma urea nitrogen measurement (mass/volume) 22 mg/dL High 4-19 [facility] White blood cell (WBC) count Ordered By: Kareen Bradshaw on 06-11-2024 WBC (Bld) [#/Vol] 10.8 10*3/uL 4.4-11.0 [facility] White blood cell (WBC) count 10.8 K/mm3 4.4-11.0 [facility] Emergency Department Summary on 05-21-2024 Emergency Department Summary Normal [facility] Venous Duplex Imag/Sergio Extre mon 05-21-2024 Venous Duplex Imag/Sergio Extrem Normal [facility] Urine Cultureon 05-15-2024 [facility] Mixed Gram Positive Organisms Low Moor Count 25,000-50,000 [facility] Mixed contaminants. Submit a new specimen if indicated. Normal [facility] Comment on above: Performed By: #### M 100.2200 ####[facility] [address] [place], [place], [id number] Urinalysis, Completeon 05-13 BACTERIA 2+ /hpf Normal None Seen [facility] Comment on above: Order Comment: ADOLPH CTOR TO SPECIFY Performed By: #### L 400.0001 ####[facility] [address] [place], [address] EPI,SQUAMOUS 5-10 SEEN Normal 5-10 [facility] Comment on above: Order Comment: ADOLPH CTOR TO SPECIFY Performed By: #### L 400.0001 ####[facility] [address] [place], [place], [id number] RBC 0-5 SEEN Normal 0-5 [facility] Comment on above: Order Comment: ADOLPH CTOR TO SPECIFY Performed By: #### L 400.0001 ####[facility] [address] [place], [place], [phone] WBC 0-5 SEEN Normal 0-5 [facility] Comment on above: Order Comment: ADOLPH CTOR TO SPECIFY Performed By: #### L 400.0001 ####[facility] [address] [place], [place], [id number] Abdomen/Pelvis without Conto n 05-12-2024 Abdomen/Pelvis without Cont Normal [facility] Absolute lymphocyte countOrd ered By: Panda Rowe on 05-12-2024 Lymphocytes Auto (Unsp spec) [#/Vol] 4.01 10*3/uL 0.83-4.51 [facility] Absolute neutrophil countOrd ered By: Panda Rowe on 05-12-2024 Absolute neutrophil count 6.2 X10^3/uL 2.0-7.7 [facility] Anion gap [Moles/Vol]Ordered By: Panda Rowe on 05-12-2024 Anion gap in Serum or Plasma 9 - [facility] Anion gap in Serum or Plasma Ordered By: Panda Rowe on 05-12-2024 Anion gap [Moles/Vol] 9 mmol/L - [facility] Automated lymphocyte count a s percentage of total leukocytesOrdered By: Panda Rowe on 05-12-2024 Lymphocytes/100 WBC Auto (Unsp spec) 35.0 % - [facility] BUN/creatinine ratioOrdered By: Panda Rowe on 05-12-2024 Urea nitrogen/Creatinine [Mass ratio] 11.5 mg/mg - [facility] BUN/creatinine ratio 11.5 RATIO 10-20 [facility] Bacteria LM.HPF (Urine sed) [#/Area]Ordered By: Panda Rowe on 05-12-2024 Urine sediment bacteria count by microscopy (number/high power field) 2+ /hpf None Seen [facility] Basic Metabolic Profile (BMP )on 05-12-2024 BUN/CRE 11.5 RATIO Normal 10-20 [facility] Comment on above: Performed By: #### L 100.0100, L500.2500 ####[facility] [address] [place], [address] Calcium [Mass/Vol] 8.8 mg/dL Normal 7.6-11.0 [facility] Comment on above: Performed By: #### L 100.0100, L500.2500 ####[facility] [address] [place], [address] Chloride [Moles/Vol] 107 mmol/L Normal 98-108 [facility] Comment on above: Performed By: #### L 100.0100, L500.2500 ####[facility] [address] [place], [address] CO2 [Moles/Vol] 25.8 mmol/L Normal 21.0-32.0 [facility] Comment on above: Performed By: #### L 100.0100, L500.2500 ####[facility] [address] [place], [address] Creatinine [Mass/Vol] 1.59 mg/dL High 0.70-1.20 [facility] Comment on above: Performed By: #### L 100.0100, L500.2500 ####[facility] [address] [place], [address] ECRCL 44.38 ml/min Low 50-250 [facility] Comment on above: Performed By: #### L 100.0100, L500.2500 ####[facility] [address] [place], [address] GAP 9 Normal 5-15 [facility] Comment on above: Performed By: #### L 100.0100, L500.2500 ####[facility] [address] [place], [address] GFR/1.73 sq M.predicted among non-blacks MDRD (S/P/Bld) [Vol rate/Area] 37 mL/min/{1.73_m2} Low >60 [facility] Comment on above: Result Comment: mL/m in/1.73m2 CKD-EPI Creatinine Equation (2020) Performed By: #### L 100.0100, L500.2500 ####[facility] [address] [place], [address] Glucose [Mass/Vol] 103 mg/dL High 70-99 [facility] Comment on above: Performed By: #### L 100.0100, L500.2500 ####[facility] [address] [place], [address] Potassium [Moles/Vol] 4.1 mmol/L Normal 3.3-5.1 [facility] Comment on above: Performed By: #### L 100.0100, L500.2500 ####[facility] [address] [place], [address] Sodium [Moles/Vol] 141 mmol/L Normal 133-145 [facility] Comment on above: Performed By: #### L 100.0100, L500.2500 ####[facility] [address] [place], [address] Urea nitrogen [Mass/Vol] 18 mg/dL Normal 4-19 [facility] Comment on above: Performed By: #### L 100.0100, L500.2500 ####[facility] [address] [place], [address] Basophil percentageOrdered B y: Panda Rowe on 05-12-2024 Basophils/100 WBC (Bld) 0.4 % 0-1 [facility] Basophil percentage 0.4 % 0-1 [facility] Bilirubin Test strip Ql (U)O rdered By: Panda Rowe on 05-12-2024 Bilirubin Ql (U) Negative Negative [facility] CBC W/Diff, Automatedon Absolute Lymph 4.01 X10 3/uL Normal 0.83-4.51 [facility] Comment on above: Performed By: #### L 100.0100, L500.2500 ####[facility] [address] [place], [address] Absolute Neut 6.2 X10 3/uL Normal 2.0-7.7 [facility] Comment on above: Performed By: #### L 100.0100, L500.2500 ####[facility] [address] [place], [address] Basophils/100 WBC (Bld) 0.4 % Normal 0-1 [facility] Comment on above: Performed By: #### L 100.0100, L500.2500 ####[facility] [address] [place], [address] Eosinophils/100 WBC (Bld) 1.0 % Normal 0-5 [facility] Comment on above: Performed By: #### L 100.0100, L500.2500 ####[facility] [address] [place], [address] Erythrocyte distribution width (RBC) [Ratio] 14.8 % High 11.6-14.6 [facility] Comment on above: Performed By: #### L 100.0100, L500.2500 ####[facility] [address] [place], [address] Hematocrit (Bld) [Volume fraction] 37.9 % Normal 37-47 [facility] Comment on above: Performed By: #### L 100.0100, L500.2500 ####[facility] [address] [place], [address] Hemoglobin (Bld) [Mass/Vol] 12.1 g/dL Normal 12.0-15.0 [facility] Comment on above: Performed By: #### L 100.0100, L500.2500 ####[facility] [address] [place], [address] IG% 0.700 Normal 0.0-0.9 [facility] Comment on above: Result Comment: IG% - Immature Granulocytes (promyelocytes, myelocytes andmetamyelocytes) > 1% indicates that a LEFT SHIFT is Present. Performed By: #### L 100.0100, L500.2500 ####[facility] [address] [place], [address] Lymphocytes/100 WBC (Bld) 35.0 % Normal 19-41 [facility] Comment on above: Performed By: #### L 100.0100, L500.2500 ####[facility] [address] [place], [address] MCH (RBC) [Entitic mass] 29.0 pg Normal 27.0-32.0 [facility] Comment on above: Performed By: #### L 100.0100, L500.2500 ####[facility] [address] [place], [address] MCHC (RBC) [Mass/Vol] 31.9 g/dL Low 32-36 [facility] Comment on above: Performed By: #### L 100.0100, L500.2500 ####[facility] [address] [place], [address] MCV (RBC) [Entitic vol] 90.9 fL Normal 81-99 [facility] Comment on above: Performed By: #### L 100.0100, L500.2500 ####[facility] [address] [place], [address] Monocytes/100 WBC (Bld) 9.2 % Normal 0-10 [facility] Comment on above: Performed By: #### L 100.0100, L500.2500 ####[facility] [address] [place], [address] Neutrophils/100 WBC (Bld) 53.7 % Normal 47-70 [facility] Comment on above: Performed By: #### L 100.0100, L500.2500 ####[facility] [address] [place], [address] Nucleated RBC (Bld) [#/Vol] 0 10*3/uL Normal 0-5 [facility] Comment on above: Performed By: #### L 100.0100, L500.2500 ####[facility] [address] [place], [address] Platelet mean volume (Bld) [Entitic vol] 9.5 fL Normal 6.2-12.0 [facility] Comment on above: Performed By: #### L 100.0100, L500.2500 ####[facility] [address] [place], [address] Platelets (Bld) [#/Vol] 233 10*3/uL Normal 150-450 [facility] Comment on above: Performed By: #### L 100.0100, L500.2500 ####[facility] [address] [place], [address] RBC (Bld) [#/Vol] 4.17 10*6/uL Low 4.2-5.4 [facility] Comment on above: Performed By: #### L 100.0100, L500.2500 ####[facility] [address] [place], [address] RDW SD 49.1 fl High 35.1-43.9 [facility] Comment on above: Performed By: #### L 100.0100, L500.2500 ####[facility] [address] [place], [address] WBC (Bld) [#/Vol] 11.5 10*3/uL High 4.4-11.0 [facility] Comment on above: Performed By: #### L 100.0100, L500.2500 ####[facility] [address] [place], [address] Calcium [Mass/Vol]Ordered By : Panda Rowe on 05-12-2024 Serum or plasma calcium measurement (mass/volume) 8.8 mg/dL 7.6-11.0 [facility] Carbon dioxide, total [Moles /volume] in Central venous bloodOrdered By: Panda Rowe on 05-12-2024 CO2 [Moles/Vol] 25.8 mmol/L 21.0-32.0 [facility] Carbon dioxide, total [Moles/volume] in Central venous blood 25.8 mmol/L 21.0-32.0 [facility] Chloride assayOrdered By: Dora Rowe on 05-12-2024 Chloride [Moles/Vol] 107 mmol/L 98-108 [facility] Chloride assay 107 mmol/L 98-108 [facility] Clarity (U)Ordered By: Galina Rowe on 05-12-2024 Urine clarity Clear Clear [facility] Color (U)Ordered By: Panda Rowe on 05-12-2024 Urine color determination Yellow Yellow [facility] Creatinine [Mass/Vol]Ordered By: Panda Rowe on 05-12-2024 Serum creatinine measurement (mass/volume) 1.59 mg/dL High 0.70-1.20 [facility] Emergency Department Summary on 05-12-2024 Emergency Department Summary Normal [facility] Eosinophil percentageOrdered By: Panda Rowe on 05-12-2024 Eosinophils/100 WBC (Bld) 1.0 % 0-5 [facility] Eosinophil percentage 1.0 % 0-5 [facility] Epithelial cells.squamous LM Ql (Urine sed)Ordered By: Panda Rowe on 05-12-2024 Squamous epithelial cells detection in urine sediment by light microscopy 5-10 SEEN /hpf 5-10 [facility] Erythrocyte distribution wid th (RBC) [Ratio]Ordered By: Panda Rowe on 05-12-2024 Erythrocyte distribution width ratio 14.8 % High 11.6-14.6 [facility] Erythrocyte distribution wid th ratioOrdered By: Panda Rowe on 05-12-2024 Erythrocyte distribution width (RBC) [Ratio] 14.8 % High 11.6-14.6 [facility] Erythrocyte distribution wid th standard deviationOrdered By: Panda Rowe on 05-12-2024 Erythrocyte distribution width (RBC) [Ratio] 49.1 fl High 35.1-43.9 [facility] Erythrocyte distribution width standard deviation 49.1 fl High 35.1-43.9 [facility] Estimation of creatinine jennifer aranceOrdered By: Panda Rowe on 05-12-2024 Estimation of creatinine clearance 44.38 ml/min Low 50-250 [facility] GFR/1.73 sq M.predicted barak g non-blacks MDRD (S/P/Bld) [Vol rate/Area]Ordered By: Panda Rowe on 05-12-2024 Glomerular filtration rate (GFR) estimation/1.73 sq m using serum, plasma, or whole b 37 Low >60 [facility] Glomerular filtration rate ( GFR) estimation/1.73 sq m using serum, plasma, or whole bOrdered By: Panda Rowe on 05-12-2024 GFR/1.73 sq M.predicted among non-blacks MDRD (S/P/Bld) [Vol rate/Area] 37 mL/min/{1.73_m2} Low >60 [facility] Glucose [Mass/Vol]Ordered By : Panda Rowe on 05-12-2024 Serum glucose measurement (mass/volume) 103 mg/dL High 70-99 [facility] Hematocrit Auto (Bld) [Volum e fraction]Ordered By: Panda Rowe on 05-12-2024 Hematocrit (Bld) [Volume fraction] 37.9 % 37-47 [facility] Automated blood hematocrit (percentage) 37.9 % 37-47 [facility] Hemoglobin measurementOrdere d By: Panda Rowe on 05-12-2024 Hemoglobin (Bld) [Mass/Vol] 12.1 g/dL 12.0-15.0 [facility] Hemoglobin measurement 12.1 g/dL 12.0-15.0 [facility] Immature granulocytes/100 WB C Auto (Bld)Ordered By: Panda Rowe on 05-12-2024 Immature granulocytes/100 WBC (Bld) 0.700 % 0.0-0.9 [facility] Automated immature granulocyte percentage 0.700 % 0.0-0.9 [facility] Ketones Test strip Ql (U)Ord ered By: Panda Rowe on 05-12-2024 Ketones Ql (U) Negative Negative [facility] Leukocyte esterase Test stri p Ql (U)Ordered By: Panda Rowe on 05-12-2024 Urine leukocyte esterase detection by dipstick 25 /ul High Negative [facility] Lymphocytes Auto (Unsp spec) [#/Vol]Ordered By: Panda Rowe on 05-12-2024 Absolute lymphocyte count 4.01 X10^3/uL 0.83-4.51 [facility] Lymphocytes/100 WBC Auto (Un sp spec)Ordered By: Panda Rowe on 05-12-2024 Automated lymphocyte count as percentage of total leukocytes 35.0 % 19-41 [facility] MCV (RBC) [Entitic vol]Order ed By: Panda Rowe on 05-12-2024 MCV (mean corpuscular volume) determination 90.9 fL 81-99 [facility] MCV (mean corpuscular volume ) determinationOrdered By: Panda Rowe on 05-12-2024 MCV (RBC) [Entitic vol] 90.9 fL 81-99 [facility] Mean corpuscular hemoglobin (MCH) determinationOrdered By: Panda Rowe on 05-12-2024 MCH (RBC) [Entitic mass] 29.0 pg 27.0-32.0 [facility] Mean corpuscular hemoglobin (MCH) determination 29.0 pg 27.0-32.0 [facility] Mean corpuscular hemoglobin concentration (MCHC) determinationOrdered By: Panda Rowe on 05-12-2024 Mean corpuscular hemoglobin concentration (MCHC) determination 31.9 g/dL Low 32-36 [facility] Mean platelet volume determi nationOrdered By: Panda Rowe on 05-12-2024 Mean platelet volume determination 9.5 fl 6.2-12.0 [facility] Monocyte percentageOrdered B y: Panda Rowe on 05-12-2024 Monocytes/100 WBC (Bld) 9.2 % 0-10 [facility] Monocyte percentage 9.2 % 0-10 [facility] Mucus LM Ql (Urine sed)Order ed By: Panda Rowe on 05-12-2024 Mucus Ql (Urine sed) 0 SEEN /hpf [facility] Mucus detection in urine sediment by light microscopy 0 SEEN /hpf [facility] Neutrophil percentageOrdered By: Panda Rowe on 05-12-2024 Neutrophils/100 WBC (Bld) 53.7 % 47-70 [facility] Neutrophil percentage 53.7 % 47-70 [facility] Nitrite Test strip Ql (U)Ord ered By: Panda Rowe on 05-12-2024 Nitrite Ql (U) Negative Negative [facility] Nucleated red blood cell per centageOrdered By: Panda Rowe on 05-12-2024 Nucleated red blood cell percentage 0 % 0-5 [facility] Platelet countOrdered By: Dora Rowe on 05-12-2024 Platelets (Bld) [#/Vol] 233 10*3/uL 150-450 [facility] Platelet count 233 K/mm3 150-450 [facility] Potassium (Unsp spec) [Mass/ Vol]Ordered By: Panda Rowe on 05-12-2024 Potassium measurement (mass/volume) 4.1 mmol/L 3.3-5.1 [facility] Potassium measurement (mass/ volume)Ordered By: Panda Rowe on 05-12-2024 Potassium (Unsp spec) [Mass/Vol] 4.1 mmol/L 3.3-5.1 [facility] Protein Test strip Ql (U)Ord ered By: Panda Rowe on 05-12-2024 Protein Ql (U) Negative Negative [facility] RBC Auto (Bld) [#/Vol]Ordere d By: Panda Rowe on 05-12-2024 RBC (Bld) [#/Vol] 4.17 10*6/uL Low 4.2-5.4 [facility] Automated blood erythrocyte count 4.17 M/mm3 Low 4.2-5.4 [facility] Serum creatinine measurement (mass/volume)Ordered By: Panda Rowe on 05-12-2024 Creatinine [Mass/Vol] 1.59 mg/dL High 0.70-1.20 [facility] Serum glucose measurement (m ass/volume)Ordered By: Panda Rowe on 05-12-2024 Glucose [Mass/Vol] 103 mg/dL High 70-99 [facility] Serum or plasma calcium heather urement (mass/volume)Ordered By: Panda Rowe on 05-12-2024 Calcium [Mass/Vol] 8.8 mg/dL 7.6-11.0 [facility] Serum or plasma urea nitroge n measurement (mass/volume)Ordered By: Panda Rowe on 05-12-2024 Urea nitrogen [Mass/Vol] 18 mg/dL - [facility] Sodium levelOrdered By: Bob Rowe on 05-12-2024 Sodium [Moles/Vol] 141 mmol/L 133-145 [facility] Sodium level 141 mmol/L 133-145 [facility] Specific gravity (U) [Rel de nsity]Ordered By: Panda Rowe on 05-12-2024 Urine specific gravity measurement 1.010 1.002-1.030 [facility] Squamous epithelial cells de tection in urine sediment by light microscopyOrdered By: Panda Rowe on 05-12-2024 Epithelial cells.squamous LM Ql (Urine sed) 5-10 SEEN /hpf 5-10 [facility] Urea nitrogen [Mass/Vol]Orde red By: Panda Rowe on 05-12-2024 Serum or plasma urea nitrogen measurement (mass/volume) 18 mg/dL - [facility] Urinalysis, Completeon 05-12 BILIRUBIN URINE Negative Normal Negative [facility] Comment on above: Order Comment: ADOLPH CTOR TO SPECIFY Performed By: #### L 400.0001 ####[facility] [address] [place], [place], [id number] Clarity (U) Clear Normal Clear [facility] Comment on above: Order Comment: ADOLPH CTOR TO SPECIFY Performed By: #### L 400.0001 ####[facility] [address] [place], [address] Color (U) Yellow Normal Yellow [facility] Comment on above: Order Comment: COLLE CTOR TO SPECIFY Performed By: #### L 400.0001 ####[facility] [address] [place] [id number] GLUCOSE, UR Normal Normal Normal [facility] Comment on above: Order Comment: COLLE CTOR TO SPECIFY Performed By: #### L 400.0001 ####[facility] [address] [place] [id number] KETONE UR Negative Normal Negative [facility] Comment on above: Order Comment: ADOLPH CTOR TO SPECIFY Performed By: #### L 400.0001 ####[facility] [address] [place] [id number] LEUK ESTERASE 25 /ul Abnormal Negative [facility] Comment on above: Order Comment: ADOLPH CTOR TO SPECIFY Performed By: #### L 400.0001 ####[facility] [address] [place] [address] Nitrite Ql (U) Negative Normal Negative [facility] Comment on above: Order Comment: ADOLPH CTOR TO SPECIFY Performed By: #### L 400.0001 ####[facility] [address] [place] [address] OCCULT BLOOD-UR Negative Normal Negative [facility] Comment on above: Order Comment: ADOLPH CTOR TO SPECIFY Performed By: #### L 400.0001 ####[facility] [address] [place] [address] pH UR 6.0 Normal 5.0 - 8.0 [facility] Comment on above: Order Comment: COLLE CTOR TO SPECIFY Performed By: #### L 400.0001 ####[facility] [address] [place] [address] PROT DIPSTX Negative Normal Negative [facility] Comment on above: Order Comment: ADOLPH CTOR TO SPECIFY Performed By: #### L 400.0001 ####[facility] [address] [place], [place], [id number] SP.GR. DIPSTX 1.010 Normal 1.002-1.030 [facility] Comment on above: Order Comment: ADOLPH CTOR TO SPECIFY Performed By: #### L 400.0001 ####[facility] [address] [place], [address] UROBILI Normal Normal Normal [facility] Comment on above: Order Comment: ADOLPH CTOR TO SPECIFY Performed By: #### L 400.0001 ####[facility] [address] [place], [place], [id number] Mucus Ql (Urine sed) 0 SEEN Normal [facility] Comment on above: Order Comment: ADOLPH CTOR TO SPECIFY Performed By: #### L 400.0001 ####[facility] [address] [place], [place], [id number] Urine clarityOrdered By: Leodan Rowe on 05-12-2024 Clarity (U) Clear Clear [facility] Urine color determinationOrd ered By: Panda Rowe on 05-12-2024 Color (U) Yellow Yellow [facility] Urine cultureOrdered By: Leodan Rowe on 05-12-2024 Bacteria identified Cx Nom (U) Positive Abnormal [facility] Urine culture Positive Abnormal [facility] Urine glucose detectionOrder ed By: Panda Rowe on 05-12-2024 Glucose Ql (U) Normal mg/dl Normal [facility] Urine glucose detection Normal mg/dl Normal [facility] Urine leukocyte esterase det ection by dipstickOrdered By: Panda Rowe on 05-12-2024 Leukocyte esterase Test strip Ql (U) 25 /ul High Negative [facility] Urine pHOrdered By: Panda mcgrath on 05-12-2024 pH (U) 6.0 [pH] 5.0 - 8.0 [facility] Urine sediment bacteria coun t by microscopy (number/high power field)Ordered By: Panda Rowe on 05-12-2024 Bacteria LM.HPF (Urine sed) [#/Area] 2 /[HPF] None Seen [facility] Urine specific gravity measu rementOrdered By: Panda Rowe on 05-12-2024 Specific gravity (U) [Rel density] 1.010 1.002-1.030 [facility] Urine total bilirubin detect ion by test stripOrdered By: Panda Rowe on 05-12-2024 Urine total bilirubin detection by test strip Negative Negative [facility] Urine urobilinogen measureme ntOrdered By: Panda Rowe on 05-12-2024 Urobilinogen Ql (U) Normal mg/dl Normal [facility] White blood cell (WBC) count Ordered By: Panda Rowe on 05-12-2024 WBC (Bld) [#/Vol] 11.5 10*3/uL High 4.4-11.0 [facility] White blood cell (WBC) count 11.5 K/mm3 High 4.4-11.0 [facility] White blood cell countOrdere d By: Panda Rowe on 05-12-2024 White blood cell count 0-5 SEEN /hpf 0-5 [facility] White blood cell count 0-5 SEEN /hpf 0-5 [facility] pH (U)Ordered By: Mamadou on 05-12-2024 Urine pH 6.0 5.0 - 8.0 [facility] Absolute lymphocyte countOrd ered By: Jcarlos Garcia on 05-04-2024 Lymphocytes Auto (Unsp spec) [#/Vol] 3.17 10*3/uL 0.83-4.51 [facility] Absolute neutrophil countOrd ered By: Jcarlos Garcia on 05-04-2024 Absolute neutrophil count 5.2 X10^3/uL 2.0-7.7 [facility] Automated lymphocyte count a s percentage of total leukocytesOrdered By: Jcarlos Garcia on 05-04-2024 Lymphocytes/100 WBC Auto (Unsp spec) 33.1 % 19-41 [facility] Basic Metabolic Profile (BMP )on 05-04-2024 BUN/CRE 13.6 RATIO Normal 10-20 [facility] Comment on above: Performed By: #### L 500.2500, L100.0100 ####[facility] [address] [place], [address] CA,Total 8.3 mg/dL Low 8.5-10.1 [facility] Comment on above: Performed By: #### L 500.2500, L100.0100 ####[facility] [address] [place], [address] Chloride [Moles/Vol] 118 mmol/L High 98-107 [facility] Comment on above: Performed By: #### L 500.2500, L100.0100 ####[facility] [address] [place], [address] CO2 [Moles/Vol] 23.0 mmol/L Normal 21.0-32.0 [facility] Comment on above: Performed By: #### L 500.2500, L100.0100 ####[facility] [address] [place], [address] Creatinine [Mass/Vol] 1.54 mg/dL High 0.55-1.02 [facility] Comment on above: Result Comment: The validity of the calculated GFR GFRAA in patients over70 years has not been determined. Clinical correlation isessential. Performed By: #### L 500.2500, L100.0100 ####[facility] [address] [place], [address] ECRCL 44.34 ml/min Normal [facility] Comment on above: Performed By: #### L 500.2500, L100.0100 ####[facility] [address] [place], [address] EST GFR - AA 44 mL/min Low >60 [facility] Comment on above: Result Comment: Afri can Nigerian GFR Calc Performed By: #### L 500.2500, L100.0100 ####[facility] [address] [place], [address] GAP 4 Low 5-15 [facility] Comment on above: Performed By: #### L 500.2500, L100.0100 ####[facility] [address] [place], [address] GFR/1.73 sq M.predicted among non-blacks MDRD (S/P/Bld) [Vol rate/Area] 37 mL/min/{1.73_m2} Low >60 [facility] Comment on above: Result Comment: Non- GFR Calc Performed By: #### L 500.2500, L100.0100 ####[facility] [address] [place], [address] Glucose [Mass/Vol] 143 mg/dL High 74-106 [facility] Comment on above: Result Comment: Fast ing Glucose result greater than or equal to 126 mg/dLsuggests DIABETES MELLITUS per A.D.A. criteria. Performed By: #### L 500.2500, L100.0100 ####[facility] [address] [place], [address] Potassium [Moles/Vol] 5.4 mmol/L High 3.5-5.1 [facility] Comment on above: Performed By: #### L 500.2500, L100.0100 ####[facility] [address] [place], [address] Sodium [Moles/Vol] 145 mmol/L Normal 136-145 [facility] Comment on above: Performed By: #### L 500.2500, L100.0100 ####[facility] [address] [place], [address] Urea nitrogen [Mass/Vol] 21 mg/dL High 7-18 [facility] Comment on above: Performed By: #### L 500.2500, L100.0100 ####[facility] [address] [place], [address] Basophil percentageOrdered B y: Jcarlos Garcia on 05-04-2024 Basophils/100 WBC (Bld) 0.2 % 0-1 [facility] Basophil percentage 0.2 % 0-5 [facility] Blood urea nitrogen (BUN)/cr eatinine ratioOrdered By: Jcarlos Garcia on 05-04-2024 Blood urea nitrogen (BUN)/creatinine ratio 13.6 RATIO 10-20 [facility] CBC W/Diff, Automatedon 04-12 Absolute Lymph 3.17 X10 3/uL Normal 0.83-4.51 [facility] Comment on above: Performed By: #### L 500.2500, L100.0100 ####[facility] [address] [place], [address] Absolute Neut 5.2 X10 3/uL Normal 2.0-7.7 [facility] Comment on above: Performed By: #### L 500.2500, L100.0100 ####[facility] [address] [place], [address] Basophils/100 WBC (Bld) 0.2 % Normal 0-1 [facility] Comment on above: Performed By: #### L 500.2500, L100.0100 ####[facility] [address] [place], [address] Eosinophils/100 WBC (Bld) 1.8 % Normal 0-5 [facility] Comment on above: Performed By: #### L 500.2500, L100.0100 ####[facility] [address] [place], [address] Erythrocyte distribution width (RBC) [Ratio] 15.4 % High 11.6-14.6 [facility] Comment on above: Performed By: #### L 500.2500, L100.0100 ####[facility] [address] [place], [address] Hematocrit (Bld) [Volume fraction] 39.4 % Normal 37-47 [facility] Comment on above: Performed By: #### L 500.2500, L100.0100 ####[facility] [address] [place], [address] Hemoglobin (Bld) [Mass/Vol] 12.1 g/dL Normal 12.0-15.0 [facility] Comment on above: Performed By: #### L 500.2500, L100.0100 ####[facility] [address] [place], [address] IG% 1.100 High 0.0-0.9 [facility] Comment on above: Result Comment: IG% - Immature Granulocytes (promyelocytes, myelocytes andmetamyelocytes) > 1% indicates that a LEFT SHIFT is Present. Performed By: #### L 500.2500, L100.0100 ####[facility] [address] [place], [address] Lymphocytes/100 WBC (Bld) 33.1 % Normal 19-41 [facility] Comment on above: Performed By: #### L 500.2500, L100.0100 ####[facility] [address] [place], [address] MCH (RBC) [Entitic mass] 28.3 pg Normal 27.0-32.0 [facility] Comment on above: Performed By: #### L 500.2500, L100.0100 ####[facility] [address] [place], [address] MCHC (RBC) [Mass/Vol] 30.7 g/dL Low 32-36 [facility] Comment on above: Performed By: #### L 500.2500, L100.0100 ####[facility] [address] [place], [address] MCV (RBC) [Entitic vol] 92.3 fL Normal 81-99 [facility] Comment on above: Performed By: #### L 500.2500, L100.0100 ####[facility] [address] [place], [address] Monocytes/100 WBC (Bld) 9.3 % Normal 0-10 [facility] Comment on above: Performed By: #### L 500.2500, L100.0100 ####[facility] [address] [place], [address] Neutrophils/100 WBC (Bld) 54.5 % Normal 47-70 [facility] Comment on above: Performed By: #### L 500.2500, L100.0100 ####[facility] [address] [place], [address] Nucleated RBC (Bld) [#/Vol] 0.2 10*3/uL Normal 0-5 [facility] Comment on above: Performed By: #### L 500.2500, L100.0100 ####[facility] [address] [place], [address] Platelet mean volume (Bld) [Entitic vol] 9.7 fL Normal 6.2-12.0 [facility] Comment on above: Performed By: #### L 500.2500, L100.0100 ####[facility] [address] [place], [address] Platelets (Bld) [#/Vol] 298 10*3/uL Normal 150-450 [facility] Comment on above: Performed By: #### L 500.2500, L100.0100 ####[facility] [address] [place], [address] RBC (Bld) [#/Vol] 4.27 10*6/uL Normal 4.2-5.4 [facility] Comment on above: Performed By: #### L 500.2500, L100.0100 ####[facility] [address] [place], [address] RDW SD 52.2 fl High 35.1-43.9 [facility] Comment on above: Performed By: #### L 500.2500, L100.0100 ####[facility] [address] [place], [address] WBC (Bld) [#/Vol] 9.6 10*3/uL Normal 4.4-11.0 [facility] Comment on above: Performed By: #### L 500.2500, L100.0100 ####[facility] [address] [place], [address] Calcium [Mass/Vol]Ordered By : Jcarlos Garcia on 05-04-2024 Serum or plasma calcium measurement (mass/volume) 8.3 mg/dL Low 8.5-10.1 [facility] Carbon dioxide measurementOr dered By: Jcarlos Garcia on 05-04-2024 CO2 [Moles/Vol] 23.0 mmol/L 21.0-32.0 [facility] Carbon dioxide measurement 23.0 mmol/L 21.0-32.0 [facility] Chloride measurementOrdered By: Jcarlos Garcia on 05-04-2024 Chloride [Moles/Vol] 118 mmol/L High 98-107 [facility] Chloride measurement 118 mmol/L High 98-107 [facility] Creatinine [Mass/Vol]Ordered By: Jcarlos Garcia on 05-04-2024 Serum or plasma creatinine measurement (mass/volume) 1.54 mg/dL High 0.55-1.02 [facility] Emergency Department Summary on 05-04-2024 Emergency Department Summary Normal [facility] Eosinophil percentageOrdered By: Jcarlos Garcia on 05-04-2024 Eosinophils/100 WBC (Bld) 1.8 % 0-5 [facility] Eosinophil percentage 1.8 % 0-5 [facility] Erythrocyte distribution wid th (RBC) [Ratio]Ordered By: Jcarlos Garcia on 05-04-2024 Erythrocyte distribution width ratio 15.4 % High 11.6-14.6 [facility] Erythrocyte distribution wid th ratioOrdered By: Jcarlos Garcia on 05-04-2024 Erythrocyte distribution width (RBC) [Ratio] 15.4 % High 11.6-14.6 [facility] Erythrocyte distribution wid th standard deviationOrdered By: Jcarlos Garcia on 05-04-2024 Erythrocyte distribution width (RBC) [Ratio] 52.2 fl High 35.1-43.9 [facility] Erythrocyte distribution width standard deviation 52.2 fl High 35.1-43.9 [facility] Estimated glomerular filtrat ion rate (GFR) AmericanOrdered By: Jcarlos Garcia on 05-04-2024 Estimated glomerular filtration rate (GFR) 44 mL/min Low >60 [facility] Estimation of creatinine jennifer aranceOrdered By: Jcarlos Garcia on 05-04-2024 Estimation of creatinine clearance 44.34 ml/min [facility] Glomerular filtration rate ( GFR) estimationOrdered By: Jcarlos Garcia on 05-04-2024 GFR/1.73 sq M.predicted among non-blacks MDRD (S/P/Bld) [Vol rate/Area] 37 mL/min/{1.73_m2} Low >60 [facility] Glomerular filtration rate (GFR) estimation 37 mL/min Low >60 [facility] Glucose measurementOrdered B y: Jcarlos Garcia on 05-04-2024 Glucose [Mass/Vol] 143 mg/dL High 74-106 [facility] Glucose measurement 143 mg/dL High 74-106 [facility] Hematocrit Auto (Bld) [Volum e fraction]Ordered By: Jcarlos Garcia on 05-04-2024 Hematocrit (Bld) [Volume fraction] 39.4 % 37-47 [facility] Automated blood hematocrit (percentage) 39.4 % 37-47 [facility] Hemoglobin measurementOrdere d By: Jcarlos Garcia on 05-04-2024 Hemoglobin (Bld) [Mass/Vol] 12.1 g/dL 12.0-15.0 [facility] Hemoglobin measurement 12.1 g/dL 12.0-15.0 [facility] Immature granulocytes/100 WB C Auto (Bld)Ordered By: Jcarlos Garcia on 05-04-2024 Immature granulocytes/100 WBC (Bld) 1.100 % High 0.0-0.9 [facility] Automated immature granulocyte percentage 1.100 % High 0.0-0.9 [facility] International normalized rat io (INR) calculationOrdered By: Jcarlos Garcia on 02-24-2025 International normalized ratio (INR) calculation 1.0 [facility] Lymphocytes Auto (Unsp spec) [#/Vol]Ordered By: Jcarlos Garcia on 05-04-2024 Absolute lymphocyte count 3.17 X10^3/uL 0.83-4.51 [facility] Lymphocytes/100 WBC Auto (Un sp spec)Ordered By: Jcarlos Garcia on 05-04-2024 Automated lymphocyte count as percentage of total leukocytes 33.1 % 19-41 [facility] MCV (RBC) [Entitic vol]Order ed By: Jcarlos Garcia on 05-04-2024 MCV (mean corpuscular volume) determination 92.3 fL 81-99 [facility] MCV (mean corpuscular volume ) determinationOrdered By: Jcarlos Garcia on 05-04-2024 MCV (RBC) [Entitic vol] 92.3 fL 81-99 [facility] Mean corpuscular hemoglobin (MCH) determinationOrdered By: Jcarlos Garcia on 05-04-2024 MCH (RBC) [Entitic mass] 28.3 pg 27.0-32.0 [facility] Mean corpuscular hemoglobin (MCH) determination 28.3 pg 27.0-32.0 [facility] Mean corpuscular hemoglobin concentration (MCHC) determinationOrdered By: Jcarlos Garcia on 05-04-2024 Mean corpuscular hemoglobin concentration (MCHC) determination 30.7 g/dL Low 32-36 [facility] Mean platelet volume determi nationOrdered By: Jcarlos Garcia on 05-04-2024 Mean platelet volume determination 9.7 fl 6.2-12.0 [facility] Monocyte percentageOrdered B y: Jcarlos Garcia on 05-04-2024 Monocytes/100 WBC (Bld) 9.3 % 0-10 [facility] Monocyte percentage 9.3 % 0-10 [facility] Neutrophil percentageOrdered By: Jcarlos Garcia on 05-04-2024 Neutrophils/100 WBC (Bld) 54.5 % 47-70 [facility] Neutrophil percentage 54.5 % 47-70 [facility] Platelet countOrdered By: Joe Garcia on 05-04-2024 Platelets (Bld) [#/Vol] 298 10*3/uL 150-450 [facility] Platelet count 298 K/mm3 150-450 [facility] Potassium measurementOrdered By: Jcarlos Garcia on 05-04-2024 Potassium [Moles/Vol] 5.4 mmol/L High 3.5-5.1 [facility] Potassium measurement 5.4 mmol/L High 3.5-5.1 [facility] Prothrombin Time w/INRon INR Coag (PPP) [Relative time] 1.0 {INR} Normal [facility] Comment on above: Performed By: #### L 300.3900 ####[facility] [address] [place], [address] PT Coag (PPP) [Time] 13.3 s Normal 11.7-14.9 [facility] Comment on above: Performed By: #### L 300.3900 ####[facility] [address] [place], [address] Prothrombin timeOrdered By: Jcarlos Garcia on 05-04-2024 PT Coag (PPP) [Time] 13.3 s 11.7-14.9 [facility] Prothrombin time 13.3 SECONDS 11.7-14.9 [facility] RBC Auto (Bld) [#/Vol]Ordere d By: Jcarlos Garcia on 05-04-2024 RBC (Bld) [#/Vol] 4.27 10*6/uL 4.2-5.4 [facility] Automated blood erythrocyte count 4.27 M/mm3 4.2-5.4 [facility] Serum anion gap measurementO rdered By: Jcarlos Garcia on 05-04-2024 Serum anion gap measurement 4 Low 5-15 [facility] Serum or plasma calcium heather urement (mass/volume)Ordered By: Jcarlos Garcia on 05-04-2024 Calcium [Mass/Vol] 8.3 mg/dL Low 8.5-10.1 [facility] Serum or plasma creatinine m easurement (mass/volume)Ordered By: Jcarlos Garcia on 05-04-2024 Creatinine [Mass/Vol] 1.54 mg/dL High 0.55-1.02 [facility] Serum or plasma urea nitroge n measurement (mass/volume)Ordered By: Jcarlos Garcia on 05-04-2024 Urea nitrogen [Mass/Vol] 21 mg/dL High 09-25 [facility] Sodium levelOrdered By: Jcarlos Garcia on 05-04-2024 Sodium [Moles/Vol] 145 mmol/L 136-145 [facility] Sodium level 145 mmol/L 136-145 [facility] Urea nitrogen [Mass/Vol]Orde red By: Jcarlos Garcia on 05-04-2024 Serum or plasma urea nitrogen measurement (mass/volume) 21 mg/dL High 09-25 [facility] Venous Duplex US, Unilateral on 05-04-2024 Venous Duplex US, Unilateral Normal [facility] White blood cell (WBC) count Ordered By: Jcarlos Garcia on 05-04-2024 WBC (Bld) [#/Vol] 9.6 10*3/uL 4.4-11.0 [facility] White blood cell (WBC) count 9.6 K/mm3 4.4-11.0 [facility] Absolute lymphocyte countOrd ered By: Charla Wadsworth on 04-20-2024 Lymphocytes Auto (Unsp spec) [#/Vol] 3.59 10*3/uL 0.83-4.51 [facility] Absolute neutrophil countOrd ered By: Charla Wadsworth on 04-20-2024 Absolute neutrophil count 6.1 X10^3/uL 2.0-7.7 [facility] Automated lymphocyte count a s percentage of total leukocytesOrdered By: Charla Wadsworth on 04-20-2024 Lymphocytes/100 WBC Auto (Unsp spec) 33.6 % 19-41 [facility] Bacteria LM.HPF (Urine sed) [#/Area]Ordered By: Charla Wadsworth on 04-20-2024 Urine sediment bacteria count by microscopy (number/high power field) RARE /hpf None Seen [facility] Basic Metabolic Profile (BMP )on 04-20-2024 BUN/CRE 15.6 RATIO Normal 10-20 [facility] Comment on above: Performed By: #### L 501.9985, L100.0100, L500.2500 ####[facility] [address] [place], [address] CA,Total 9.5 mg/dL Normal 8.5-10.1 [facility] Comment on above: Performed By: #### L 501.9985, L100.0100, L500.2500 ####[facility] [address] [place], [address] Chloride [Moles/Vol] 108 mmol/L High 98-107 [facility] Comment on above: Performed By: #### L 501.9985, L100.0100, L500.2500 ####[facility] [address] [place], [address] CO2 [Moles/Vol] 30.0 mmol/L Normal 21.0-32.0 [facility] Comment on above: Performed By: #### L 501.9985, L100.0100, L500.2500 ####[facility] [address] [place], [address] Creatinine [Mass/Vol] 1.09 mg/dL High 0.55-1.02 [facility] Comment on above: Result Comment: The validity of the calculated GFR GFRAA in patients over70 years has not been determined. Clinical correlation isessential. Performed By: #### L 501.9985, L100.0100, L500.2500 ####[facility] [address] [place], [address] EST GFR - AA 66 mL/min Normal >60 [facility] Comment on above: Result Comment: Afri can Nigerian GFR Calc Performed By: #### L 501.9985, L100.0100, L500.2500 ####[facility] [address] [place], [address] GAP 4 Low 5-15 [facility] Comment on above: Performed By: #### L 501.9985, L100.0100, L500.2500 ####[facility] [address] [place], [address] GFR/1.73 sq M.predicted among non-blacks MDRD (S/P/Bld) [Vol rate/Area] 55 mL/min/{1.73_m2} Low >60 [facility] Comment on above: Result Comment: Non- GFR Calc Performed By: #### L 501.9985, L100.0100, L500.2500 ####[facility] [address] [place], [address] Glucose [Mass/Vol] 202 mg/dL High 74-106 [facility] Comment on above: Result Comment: Gluc ose result greater than or equal to 200 mg/dLsuggests DIABETES MELLITUS per A.D.A. criteria. Performed By: #### L 501.9985, L100.0100, L500.2500 ####[facility] [address] [place], [address] Potassium [Moles/Vol] 5.5 mmol/L High 3.5-5.1 [facility] Comment on above: Performed By: #### L 501.9985, L100.0100, L500.2500 ####[facility] [address] [place], [address] Sodium [Moles/Vol] 142 mmol/L Normal 136-145 [facility] Comment on above: Performed By: #### L 501.9985, L100.0100, L500.2500 ####[facility] [address] [place], [address] Urea nitrogen [Mass/Vol] 17 mg/dL Normal 7-18 [facility] Comment on above: Performed By: #### L 501.9985, L100.0100, L500.2500 ####[facility] [address] [place], [address] Basophil percentageOrdered B y: Charla Wadsworth on 04-20-2024 Basophils/100 WBC (Bld) 0.5 % 0-1 [facility] Basophil percentage 0.5 % 0-1 [facility] Bilirubin Test strip Ql (U)O rdered By: Charla Wadsworth on 04-20-2024 Bilirubin Ql (U) Negative Negative [facility] Blood urea nitrogen (BUN)/cr eatinine ratioOrdered By: Lethaaylaurmilajoselyn Aguilarmoi on 04-20-2024 Blood urea nitrogen (BUN)/creatinine ratio 15.6 RATIO 10-20 [facility] CBC W/Diff, Automatedon 04-11 0-2024 Absolute Lymph 3.59 X10 3/uL Normal 0.83-4.51 [facility] Comment on above: Performed By: #### L 501.9985, L100.0100, L500.2500 ####[facility] [address] [place], [address] Absolute Neut 6.1 X10 3/uL Normal 2.0-7.7 [facility] Comment on above: Performed By: #### L 501.9985, L100.0100, L500.2500 ####[facility] [address] [place], [address] Basophils/100 WBC (Bld) 0.5 % Normal 0-1 [facility] Comment on above: Performed By: #### L 501.9985, L100.0100, L500.2500 ####[facility] [address] [place], [address] Eosinophils/100 WBC (Bld) 1.8 % Normal 0-5 [facility] Comment on above: Performed By: #### L 501.9985, L100.0100, L500.2500 ####[facility] [address] [place], [address] Erythrocyte distribution width (RBC) [Ratio] 14.3 % Normal 11.6-14.6 [facility] Comment on above: Performed By: #### L 501.9985, L100.0100, L500.2500 ####[facility] [address] [place], [address] Hematocrit (Bld) [Volume fraction] 43.8 % Normal 37-47 [facility] Comment on above: Performed By: #### L 501.9985, L100.0100, L500.2500 ####[facility] [address] [place], [address] Hemoglobin (Bld) [Mass/Vol] 13.8 g/dL Normal 12.0-15.0 [facility] Comment on above: Performed By: #### L 501.9985, L100.0100, L500.2500 ####[facility] [address] [place], [address] IG% 0.800 Normal 0.0-0.9 [facility] Comment on above: Result Comment: IG% - Immature Granulocytes (promyelocytes, myelocytes andmetamyelocytes) > 1% indicates that a LEFT SHIFT is Present. Performed By: #### L 501.9985, L100.0100, L500.2500 ####[facility] [address] [place], [address] Lymphocytes/100 WBC (Bld) 33.6 % Normal 19-41 [facility] Comment on above: Performed By: #### L 501.9985, L100.0100, L500.2500 ####[facility] [address] [place], [address] MCH (RBC) [Entitic mass] 28.6 pg Normal 27.0-32.0 [facility] Comment on above: Performed By: #### L 501.9985, L100.0100, L500.2500 ####[facility] [address] [place], [address] MCHC (RBC) [Mass/Vol] 31.5 g/dL Low 32-36 [facility] Comment on above: Performed By: #### L 501.9985, L100.0100, L500.2500 ####[facility] [address] [place], [address] MCV (RBC) [Entitic vol] 90.9 fL Normal 81-99 [facility] Comment on above: Performed By: #### L 501.9985, L100.0100, L500.2500 ####[facility] [address] [place], [address] Monocytes/100 WBC (Bld) 6.5 % Normal 0-10 [facility] Comment on above: Performed By: #### L 501.9985, L100.0100, L500.2500 ####[facility] [address] [place], [address] Neutrophils/100 WBC (Bld) 56.8 % Normal 47-70 [facility] Comment on above: Performed By: #### L 501.9985, L100.0100, L500.2500 ####[facility] [address] [place], [address] Nucleated RBC (Bld) [#/Vol] 0 10*3/uL Normal 0-5 [facility] Comment on above: Performed By: #### L 501.9985, L100.0100, L500.2500 ####[facility] [address] [place], [address] Platelet mean volume (Bld) [Entitic vol] 10.1 fL Normal 6.2-12.0 [facility] Comment on above: Performed By: #### L 501.9985, L100.0100, L500.2500 ####[facility] [address] [place], [address] Platelets (Bld) [#/Vol] 207 10*3/uL Normal 150-450 [facility] Comment on above: Performed By: #### L 501.9985, L100.0100, L500.2500 ####[facility] [address] [place], [address] RBC (Bld) [#/Vol] 4.82 10*6/uL Normal 4.2-5.4 [facility] Comment on above: Performed By: #### L 501.9985, L100.0100, L500.2500 ####[facility] [address] [place], [address] RDW SD 47.8 fl High 35.1-43.9 [facility] Comment on above: Performed By: #### L 501.9985, L100.0100, L500.2500 ####[facility] [address] [place], [address] WBC (Bld) [#/Vol] 10.7 10*3/uL Normal 4.4-11.0 [facility] Comment on above: Performed By: #### L 501.9985, L100.0100, L500.2500 ####[facility] [address] [place], [address] Calcium [Mass/Vol]Ordered By : Charla Wadsworth on 04-20-2024 Serum or plasma calcium measurement (mass/volume) 9.5 mg/dL 8.5-10.1 [facility] Carbon dioxide measurementOr dered By: Charla Wadsworth on 04-20-2024 CO2 [Moles/Vol] 30.0 mmol/L 21.0-32.0 [facility] Carbon dioxide measurement 30.0 mmol/L 21.0-32.0 [facility] Chloride measurementOrdered By: Charla Wadsworth on 04-20-2024 Chloride [Moles/Vol] 108 mmol/L High 98-107 [facility] Chloride measurement 108 mmol/L High 98-107 [facility] Clarity (U)Ordered By: Wilma Wadsworth on 04-20-2024 Urine clarity Clear Clear [facility] Color (U)Ordered By: Stefanie Wadsworth on 04-20-2024 Urine color determination Yellow Yellow [facility] Creatinine [Mass/Vol]Ordered By: Charla Wadsworth on 04-20-2024 Serum or plasma creatinine measurement (mass/volume) 1.09 mg/dL High 0.55-1.02 [facility] Eosinophil percentageOrdered By: Charla Wadsworth on 04-20-2024 Eosinophils/100 WBC (Bld) 1.8 % 0-5 [facility] Eosinophil percentage 1.8 % 0-5 [facility] Erythrocyte distribution wid th (RBC) [Ratio]Ordered By: Charla Wadsworth on 04-20-2024 Erythrocyte distribution width ratio 14.3 % 11.6-14.6 [facility] Erythrocyte distribution wid th ratioOrdered By: Charla Wadsworth on 04-20-2024 Erythrocyte distribution width (RBC) [Ratio] 14.3 % 11.6-14.6 [facility] Erythrocyte distribution wid th standard deviationOrdered By: Charla Wadsworth on 04-20-2024 Erythrocyte distribution width (RBC) [Ratio] 47.8 fl High 35.1-43.9 [facility] Erythrocyte distribution width standard deviation 47.8 fl High 35.1-43.9 [facility] Estimated glomerular filtrat ion rate (GFR) AmericanOrdered By: Charla Wadsworth on 04-20-2024 Estimated glomerular filtration rate (GFR) 66 mL/min >60 [facility] Glomerular filtration rate ( GFR) estimationOrdered By: Charla Wadsworth on 04-20-2024 GFR/1.73 sq M.predicted among non-blacks MDRD (S/P/Bld) [Vol rate/Area] 55 mL/min/{1.73_m2} Low >60 [facility] Glomerular filtration rate (GFR) estimation 55 mL/min Low >60 [facility] Glucose Ql (U)Ordered By: Letha Wadsworth on 04-20-2024 Urine glucose detection 50 mg/dl High Normal [facility] Glucose measurementOrdered B y: Charla Wadsworth on 04-20-2024 Glucose [Mass/Vol] 202 mg/dL High 74-106 [facility] Glucose measurement 202 mg/dL High 74-106 [facility] HbA1c (Bld) [Mass fraction]O rdered By: Charla Wadsworth on 04-20-2024 Hemoglobin A1c percentage 8.3 % High 3.8-5.6 [facility] Hematocrit Auto (Bld) [Volum e fraction]Ordered By: Charla Wadsworth on 04-20-2024 Hematocrit (Bld) [Volume fraction] 43.8 % 37-47 [facility] Automated blood hematocrit (percentage) 43.8 % 37-47 [facility] Hemoglobin A1con 04-20-2024 HbA1c (Bld) [Mass fraction] 8.3 % High 3.8-5.6 [facility] Comment on above: Result Comment: Norm al < 5.7 % Prediabetic 5.7 - 6.4 % Diabetic >or= 6.5 % Please note range changes. Performed By: #### L 501.9985, L100.0100, L500.2500 ####[facility] [address] [place], [address] Hemoglobin A1c percentageOrd ered By: Charla Wadsworth on 04-20-2024 HbA1c (Bld) [Mass fraction] 8.3 % High 3.8-5.6 [facility] Hemoglobin measurementOrdere d By: Charla Wadsworth on 04-20-2024 Hemoglobin (Bld) [Mass/Vol] 13.8 g/dL 12.0-15.0 [facility] Hemoglobin measurement 13.8 g/dL 12.0-15.0 [facility] Hyaline casts LM.LPF (Urine sed) [#/Area]Ordered By: Charla Wadsworth on 04-20-2024 Hyaline casts (Urine sed) [#/Area] 0 /[LPF] 0-5 [facility] Urine sediment hyaline cast count by microscopy (number/low power field) 0-5 SEEN /lpf 0-5 [facility] Immature granulocytes/100 WB C Auto (Bld)Ordered By: Charla Wadsworth on 04-20-2024 Immature granulocytes/100 WBC (Bld) 0.800 % 0.0-0.9 [facility] Automated immature granulocyte percentage 0.800 % 0.0-0.9 [facility] Internal Medicine Office Vis iton 04-20-2024 Internal Medicine Office Visit Normal [facility] Ketones Test strip Ql (U)Ord ered By: Charla Wadsworth on 04-20-2024 Ketones Ql (U) Negative Negative [facility] Leukocyte esterase Test stri p Ql (U)Ordered By: Charla Wadsworth on 04-20-2024 Urine leukocyte esterase detection by dipstick 25 /ul High Negative [facility] Lymphocytes Auto (Unsp spec) [#/Vol]Ordered By: Charla Wadsworth on 04-20-2024 Absolute lymphocyte count 3.59 X10^3/uL 0.83-4.51 [facility] Lymphocytes/100 WBC Auto (Un sp spec)Ordered By: Charla Wadsworth on 04-20-2024 Automated lymphocyte count as percentage of total leukocytes 33.6 % 19-41 [facility] MCV (RBC) [Entitic vol]Order ed By: Charla Wadsworth on 04-20-2024 MCV (mean corpuscular volume) determination 90.9 fL 81-99 [facility] MCV (mean corpuscular volume ) determinationOrdered By: Charla Wadsworth on 04-20-2024 MCV (RBC) [Entitic vol] 90.9 fL 81-99 [facility] Mean corpuscular hemoglobin (MCH) determinationOrdered By: Charla Wadsworth on 04-20-2024 MCH (RBC) [Entitic mass] 28.6 pg 27.0-32.0 [facility] Mean corpuscular hemoglobin (MCH) determination 28.6 pg 27.0-32.0 [facility] Mean corpuscular hemoglobin concentration (MCHC) determinationOrdered By: Charla Wadsworth on 04-20-2024 Mean corpuscular hemoglobin concentration (MCHC) determination 31.5 g/dL Low 32-36 [facility] Mean platelet volume determi nationOrdered By: Charla Wadsworth on 04-20-2024 Mean platelet volume determination 10.1 fl 6.2-12.0 [facility] Microscopic analysis of urin e for red blood cells (RBC)Ordered By: Charla Wadsworth on 04-20-2024 Microscopic analysis of urine for red blood cells (RBC) 0 SEEN /hpf [facility] Monocyte percentageOrdered B y: Charla Wadsworth on 04-20-2024 Monocytes/100 WBC (Bld) 6.5 % 0-10 [facility] Monocyte percentage 6.5 % 0-10 [facility] Mucus LM Ql (Urine sed)Order ed By: Charla Wadsworth on 04-20-2024 Mucus Ql (Urine sed) 0 SEEN /hpf [facility] Neutrophil percentageOrdered By: Charla Wadsworth on 04-20-2024 Neutrophils/100 WBC (Bld) 56.8 % 47-70 [facility] Neutrophil percentage 56.8 % 47-70 [facility] Nitrite Test strip Ql (U)Ord ered By: Charla Wadsworth on 04-20-2024 Nitrite Ql (U) Negative Negative [facility] Nucleated red blood cell per centageOrdered By: Charla Wadsworth on 04-20-2024 Nucleated red blood cell percentage 0 % 0-5 [facility] Platelet countOrdered By: Letha Wadsworth on 04-20-2024 Platelets (Bld) [#/Vol] 207 10*3/uL 150-450 [facility] Platelet count 207 K/mm3 150-450 [facility] Potassium measurementOrdered By: Charla Wadsworth on 04-20-2024 Potassium [Moles/Vol] 5.5 mmol/L High 3.5-5.1 [facility] Potassium measurement 5.5 mmol/L High 3.5-5.1 [facility] Protein Test strip Ql (U)Ord ered By: Charla Wadsworth on 04-20-2024 Protein Ql (U) 15 mg/dl High Negative [facility] Urine protein assay by test strip, semi-quantitative 15 mg/dl High Negative [facility] RBC Auto (Bld) [#/Vol]Ordere d By: Charla Wadsworth on 04-20-2024 RBC (Bld) [#/Vol] 4.82 10*6/uL 4.2-5.4 [facility] Automated blood erythrocyte count 4.82 M/mm3 4.2-5.4 [facility] Serum anion gap measurementO rdered By: Charla Wadsworth on 04-20-2024 Serum anion gap measurement 4 Low 5-15 [facility] Serum or plasma calcium heather urement (mass/volume)Ordered By: Charla Wadsworth on 04-20-2024 Calcium [Mass/Vol] 9.5 mg/dL 8.5-10.1 [facility] Serum or plasma creatinine m easurement (mass/volume)Ordered By: Charla Wadsworth on 04-20-2024 Creatinine [Mass/Vol] 1.09 mg/dL High 0.55-1.02 [facility] Serum or plasma urea nitroge n measurement (mass/volume)Ordered By: Charla Wadsworth on 04-20-2024 Urea nitrogen [Mass/Vol] 17 mg/dL 7-18 [facility] Sodium levelOrdered By: Regina Wadsworth on 04-20-2024 Sodium [Moles/Vol] 142 mmol/L 136-145 [facility] Sodium level 142 mmol/L 136-145 [facility] Specific gravity (U) [Rel de nsity]Ordered By: Charla Wadsworth on 04-20-2024 Urine specific gravity measurement 1.020 1.002-1.030 [facility] Squamous epithelial cells de tection in urine sediment by light microscopyOrdered By: Charla Wadsworth on 04-20-2024 Epithelial cells.squamous LM Ql (Urine sed) 0-5 SEEN /hpf 5-10 [facility] Transitional cells detection in urine sediment by light microscopyOrdered By: Charla Wadsworth on 04-20-2024 Transitional cells LM Ql (Urine sed) 0-5 SEEN /hpf 0-5 [facility] Urea nitrogen [Mass/Vol]Orde red By: Charla Wadsworth on 04-20-2024 Serum or plasma urea nitrogen measurement (mass/volume) 17 mg/dL 7-18 [facility] Urinalysis, Completeon 04-20 BACTERIA RARE Normal None Seen [facility] Comment on above: Order Comment: ADOLPH CTOR TO SPECIFY Performed By: #### L 400.0001 ####[facility] [address] [place], [address] CAST,HYALINE 0-5 SEEN Normal 0-5 [facility] Comment on above: Order Comment: ADOLPH CTOR TO SPECIFY Performed By: #### L 400.0001 ####[facility] [address] [place], [address] EPI,SQUAMOUS 0-5 SEEN Normal 5-10 [facility] Comment on above: Order Comment: ADOLPH CTOR TO SPECIFY Performed By: #### L 400.0001 ####[facility] [address] [place], [address] EPI,TRANSITION 0-5 SEEN Normal 0-5 [facility] Comment on above: Order Comment: ADOLPH CTOR TO SPECIFY Performed By: #### L 400.0001 ####[facility] [address] [place], [address] RBC 0 SEEN Normal 0-5 [facility] Comment on above: Order Comment: ADOLPH CTOR TO SPECIFY Performed By: #### L 400.0001 ####[facility] [address] [place], [address] WBC 0-5 SEEN Normal 0-5 [facility] Comment on above: Order Comment: ADOLPH CTOR TO SPECIFY Performed By: #### L 400.0001 ####[facility] [address] [place], [address] Mucus Ql (Urine sed) 0 SEEN Normal [facility] Comment on above: Order Comment: ADOLPH CTOR TO SPECIFY Performed By: #### L 400.0001 ####[facility] [address] [place], [address] Urine clarityOrdered By: Ozzy Wadsworth on 04-20-2024 Clarity (U) Clear Clear [facility] Urine color determinationOrd ered By: Charla Wadsworth on 04-20-2024 Color (U) Yellow Yellow [facility] Urine glucose detectionOrder ed By: Charla Wadsworth on 04-20-2024 Glucose Ql (U) 50 mg/dl High Normal [facility] Urine leukocyte esterase det ection by dipstickOrdered By: Charla Wadsworth on 04-20-2024 Leukocyte esterase Test strip Ql (U) 25 /ul High Negative [facility] Urine pHOrdered By: Maximilian Wadsworth on 04-20-2024 pH (U) 6.0 [pH] 5.0 - 8.0 [facility] Urine sediment bacteria coun t by microscopy (number/high power field)Ordered By: Charla Wadsworth on 04-20-2024 Bacteria LM.HPF (Urine sed) [#/Area] RARE /hpf None Seen [facility] Urine specific gravity measu rementOrdered By: Charla Wadsworth on 04-20-2024 Specific gravity (U) [Rel density] 1.020 1.002-1.030 [facility] Urine total bilirubin detect ion by test stripOrdered By: Charla Wadsworth on 04-20-2024 Urine total bilirubin detection by test strip Negative Negative [facility] Urine urobilinogen measureme ntOrdered By: Charla Wadsworth on 04-20-2024 Urobilinogen Ql (U) 1 mg/dl High Normal [facility] Urobilinogen Ql (U)Ordered B y: Charla Wadsworth on 04-20-2024 Urine urobilinogen measurement 1 mg/dl High Normal [facility] White blood cell (WBC) count Ordered By: Charla Wadsworth on 04-20-2024 WBC (Bld) [#/Vol] 10.7 10*3/uL 4.4-11.0 [facility] White blood cell (WBC) count 10.7 K/mm3 4.4-11.0 [facility] White blood cell countOrdere d By: Charla Wadsworth on 04-20-2024 White blood cell count 0-5 SEEN /hpf 0-5 [facility] White blood cell count 0-5 SEEN /hpf 0-5 [facility] pH (U)Ordered By: Charla Wadsworth on 04-20-2024 Urine pH 6.0 5.0 - 8.0 [facility] Emergency Department Summary on 04-15-2024 Emergency Department Summary Normal [facility] Basic Metabolic Profile (BMP )on 04-07-2024 BUN Normal 7-18 [facility] Comment on above: Result Comment: Canc elled via OM: Order cancelled - Patient discharged Performed By: #### L 500.2500, L100.0100 ####[facility] [address] [place], [address] BUN/CRE Normal 10-20 [facility] Comment on above: Result Comment: Canc elled via OM: Order cancelled - Patient discharged Performed By: #### L 500.2500, L100.0100 ####[facility] [address] [place], [address] CA,Total Normal 8.5-10.1 [facility] Comment on above: Result Comment: Canc elled via OM: Order cancelled - Patient discharged Performed By: #### L 500.2500, L100.0100 ####[facility] [address] [place], [address] CL Normal 98-107 [facility] Comment on above: Result Comment: Canc elled via OM: Order cancelled - Patient discharged Performed By: #### L 500.2500, L100.0100 ####[facility] [address] [place], [address] CO2 Normal 21.0-32.0 [facility] Comment on above: Result Comment: Canc elled via OM: Order cancelled - Patient discharged Performed By: #### L 500.2500, L100.0100 ####[facility] [address] [place], [address] CREAT,SERUM Normal 0.55-1.02 [facility] Comment on above: Result Comment: Canc elled via OM: Order cancelled - Patient discharged Performed By: #### L 500.2500, L100.0100 ####[facility] [address] [place], [address] EST GFR Normal >60 [facility] Comment on above: Result Comment: Canc elled via OM: Order cancelled - Patient discharged Performed By: #### L 500.2500, L100.0100 ####[facility] [address] [place], [address] EST GFR - AA Normal >60 [facility] Comment on above: Result Comment: Canc elled via OM: Order cancelled - Patient discharged Performed By: #### L 500.2500, L100.0100 ####[facility] [address] [place], [address] GAP Normal 5-15 [facility] Comment on above: Result Comment: Canc elled via OM: Order cancelled - Patient discharged Performed By: #### L 500.2500, L100.0100 ####[facility] [address] [place], [address] GLU Normal 74-106 [facility] Comment on above: Result Comment: Canc elled via OM: Order cancelled - Patient discharged Performed By: #### L 500.2500, L100.0100 ####[facility] [address] [place], [address] Potassium Normal 3.5-5.1 [facility] Comment on above: Result Comment: Canc elled via OM: Order cancelled - Patient discharged Performed By: #### L 500.2500, L100.0100 ####[facility] [address] [place], [address] Basic Metabolic Profile (BMP) Normal 136-145 [facility] Comment on above: Result Comment: Canc elled via OM: Order cancelled - Patient discharged Performed By: #### L 500.2500, L100.0100 ####[facility] [address] [place], [address] CBC W/Diff, Automatedon 03-12 Absolute Neut Normal 2.0-7.7 [facility] Comment on above: Result Comment: Canc elled via OM: Order cancelled - Patient discharged Performed By: #### L 500.2500, L100.0100 ####[facility] [address] [place], [address] HCT Normal 37-47 [facility] Comment on above: Result Comment: Canc elled via OM: Order cancelled - Patient discharged Performed By: #### L 500.2500, L100.0100 ####[facility] [address] [place], [address] HGB Normal 12.0-15.0 [facility] Comment on above: Result Comment: Canc elled via OM: Order cancelled - Patient discharged Performed By: #### L 500.2500, L100.0100 ####[facility] [address] [place], [address] MCH Normal 27.0-32.0 [facility] Comment on above: Result Comment: Canc elled via OM: Order cancelled - Patient discharged Performed By: #### L 500.2500, L100.0100 ####[facility] [address] [place], [address] MCHC Normal 32-36 [facility] Comment on above: Result Comment: Canc elled via OM: Order cancelled - Patient discharged Performed By: #### L 500.2500, L100.0100 ####[facility] [address] [place], [address] MCV Normal 81-99 [facility] Comment on above: Result Comment: Canc elled via OM: Order cancelled - Patient discharged Performed By: #### L 500.2500, L100.0100 ####[facility] [address] [place], [address] NEUT% Normal 47-70 [facility] Comment on above: Result Comment: Canc elled via OM: Order cancelled - Patient discharged Performed By: #### L 500.2500, L100.0100 ####[facility] [address] [place], [address] PLT Normal 150-450 [facility] Comment on above: Result Comment: Canc elled via OM: Order cancelled - Patient discharged Performed By: #### L 500.2500, L100.0100 ####[facility] [address] [place], [address] RBC Normal 4.2-5.4 [facility] Comment on above: Result Comment: Canc elled via OM: Order cancelled - Patient discharged Performed By: #### L 500.2500, L100.0100 ####[facility] [address] [place], [address] RDW CV Normal 11.6-14.6 [facility] Comment on above: Result Comment: Canc elled via OM: Order cancelled - Patient discharged Performed By: #### L 500.2500, L100.0100 ####[facility] [address] [place], [address] RDW SD Normal 35.1-43.9 [facility] Comment on above: Result Comment: Canc elled via OM: Order cancelled - Patient discharged Performed By: #### L 500.2500, L100.0100 ####[facility] [address] [place], [address] WBC Normal 4.4-11.0 [facility] Comment on above: Result Comment: Canc elled via OM: Order cancelled - Patient discharged Performed By: #### L 500.2500, L100.0100 ####[facility] [address] [place], [address] Basic Metabolic Profile (BMP )on 04-06-2024 BUN Normal 7-18 [facility] Comment on above: Result Comment: Canc elled via OM: Order cancelled - Patient discharged Performed By: #### L 100.0100, L500.2500 ####[facility] [address] [place], [address] BUN/CRE Normal 10-20 [facility] Comment on above: Result Comment: Canc elled via OM: Order cancelled - Patient discharged Performed By: #### L 100.0100, L500.2500 ####[facility] [address] [place], [address] CA,Total Normal 8.5-10.1 [facility] Comment on above: Result Comment: Canc elled via OM: Order cancelled - Patient discharged Performed By: #### L 100.0100, L500.2500 ####[facility] [address] [place], [address] CL Normal 98-107 [facility] Comment on above: Result Comment: Canc elled via OM: Order cancelled - Patient discharged Performed By: #### L 100.0100, L500.2500 ####[facility] [address] [place], [address] CO2 Normal 21.0-32.0 [facility] Comment on above: Result Comment: Canc elled via OM: Order cancelled - Patient discharged Performed By: #### L 100.0100, L500.2500 ####[facility] [address] [place], [address] CREAT,SERUM Normal 0.55-1.02 [facility] Comment on above: Result Comment: Canc elled via OM: Order cancelled - Patient discharged Performed By: #### L 100.0100, L500.2500 ####[facility] [address] [place], [address] EST GFR Normal >60 [facility] Comment on above: Result Comment: Canc elled via OM: Order cancelled - Patient discharged Performed By: #### L 100.0100, L500.2500 ####[facility] [address] [place], [address] EST GFR - AA Normal >60 [facility] Comment on above: Result Comment: Canc elled via OM: Order cancelled - Patient discharged Performed By: #### L 100.0100, L500.2500 ####[facility] [address] [place], [address] GAP Normal 5-15 [facility] Comment on above: Result Comment: Canc elled via OM: Order cancelled - Patient discharged Performed By: #### L 100.0100, L500.2500 ####[facility] [address] [place], [address] GLU Normal 74-106 [facility] Comment on above: Result Comment: Canc elled via OM: Order cancelled - Patient discharged Performed By: #### L 100.0100, L500.2500 ####[facility] [address] [place], [address] Potassium Normal 3.5-5.1 [facility] Comment on above: Result Comment: Canc elled via OM: Order cancelled - Patient discharged Performed By: #### L 100.0100, L500.2500 ####[facility] [address] [place], [address] Basic Metabolic Profile (BMP) Normal 136-145 [facility] Comment on above: Result Comment: Canc elled via OM: Order cancelled - Patient discharged Performed By: #### L 100.0100, L500.2500 ####[facility] [address] [place], [address] CBC W/Diff, Automatedon - Absolute Neut Normal 2.0-7.7 [facility] Comment on above: Result Comment: Canc elled via OM: Order cancelled - Patient discharged Performed By: #### L 100.0100, L500.2500 ####[facility] [address] [place], [address] HCT Normal 37-47 [facility] Comment on above: Result Comment: Canc elled via OM: Order cancelled - Patient discharged Performed By: #### L 100.0100, L500.2500 ####[facility] [address] [place], [address] HGB Normal 12.0-15.0 [facility] Comment on above: Result Comment: Canc elled via OM: Order cancelled - Patient discharged Performed By: #### L 100.0100, L500.2500 ####[facility] [address] [place], [address] MCH Normal 27.0-32.0 [facility] Comment on above: Result Comment: Canc elled via OM: Order cancelled - Patient discharged Performed By: #### L 100.0100, L500.2500 ####[facility] [address] [place], [address] MCHC Normal 32-36 [facility] Comment on above: Result Comment: Canc elled via OM: Order cancelled - Patient discharged Performed By: #### L 100.0100, L500.2500 ####[facility] [address] [place], [address] MCV Normal 81-99 [facility] Comment on above: Result Comment: Canc elled via OM: Order cancelled - Patient discharged Performed By: #### L 100.0100, L500.2500 ####[facility] [address] [place], [address] NEUT% Normal 47-70 [facility] Comment on above: Result Comment: Canc elled via OM: Order cancelled - Patient discharged Performed By: #### L 100.0100, L500.2500 ####[facility] [address] [place], [address] PLT Normal 150-450 [facility] Comment on above: Result Comment: Canc elled via OM: Order cancelled - Patient discharged Performed By: #### L 100.0100, L500.2500 ####[facility] [address] [place], [address] RBC Normal 4.2-5.4 [facility] Comment on above: Result Comment: Canc elled via OM: Order cancelled - Patient discharged Performed By: #### L 100.0100, L500.2500 ####[facility] [address] [place], [address] RDW CV Normal 11.6-14.6 [facility] Comment on above: Result Comment: Canc elled via OM: Order cancelled - Patient discharged Performed By: #### L 100.0100, L500.2500 ####[facility] [address] [place], [address] RDW SD Normal 35.1-43.9 [facility] Comment on above: Result Comment: Canc elled via OM: Order cancelled - Patient discharged Performed By: #### L 100.0100, L500.2500 ####[facility] [address] [place], [address] WBC Normal 4.4-11.0 [facility] Comment on above: Result Comment: Canc elled via OM: Order cancelled - Patient discharged Performed By: #### L 100.0100, L500.2500 ####[facility] [address] [place], [address] Absolute lymphocyte countOrd ered By: Autumn Gorman on 04-05-2024 Lymphocytes Auto (Unsp spec) [#/Vol] 1.85 10*3/uL 0.83-4.51 [facility] Absolute neutrophil countOrd ered By: Autumn Gorman on 04-05-2024 Absolute neutrophil count 15.0 X10^3/uL High 2.0-7.7 [facility] Automated lymphocyte count a s percentage of total leukocytesOrdered By: Autumn Gorman on 04-05-2024 Lymphocytes/100 WBC Auto (Unsp spec) 10.5 % Low 19-41 [facility] Basic Metabolic Profile (BMP )on 04-05-2024 BUN/CRE 24.8 RATIO High 10-20 [facility] Comment on above: Performed By: #### L 501.5200, L500.2500, L100.0100, L501.2300 ####[facility] [address] [place], [address] CA,Total 10.1 mg/dL Normal 8.5-10.1 [facility] Comment on above: Performed By: #### L 501.5200, L500.2500, L100.0100, L501.2300 ####[facility] [address] [place], [address] Chloride [Moles/Vol] 107 mmol/L Normal 98-107 [facility] Comment on above: Performed By: #### L 501.5200, L500.2500, L100.0100, L501.2300 ####[facility] [address] [place], [address] CO2 [Moles/Vol] 27.0 mmol/L Normal 21.0-32.0 [facility] Comment on above: Performed By: #### L 501.5200, L500.2500, L100.0100, L501.2300 ####[facility] [address] [place], [address] Creatinine [Mass/Vol] 1.25 mg/dL High 0.55-1.02 [facility] Comment on above: Result Comment: The validity of the calculated GFR GFRAA in patients over70 years has not been determined. Clinical correlation isessential. Performed By: #### L 501.5200, L500.2500, L100.0100, L501.2300 ####[facility] [address] [place], [address] ECRCL 54.75 ml/min Normal [facility] Comment on above: Performed By: #### L 501.5200, L500.2500, L100.0100, L501.2300 ####[facility] [address] [place], [address] EST GFR - AA 57 mL/min Low >60 [facility] Comment on above: Result Comment: Afri can Nigerian GFR Calc Performed By: #### L 501.5200, L500.2500, L100.0100, L501.2300 ####[facility] [address] [place], [address] GAP 4 Low 5-15 [facility] Comment on above: Performed By: #### L 501.5200, L500.2500, L100.0100, L501.2300 ####[facility] [address] [place], [address] GFR/1.73 sq M.predicted among non-blacks MDRD (S/P/Bld) [Vol rate/Area] 47 mL/min/{1.73_m2} Low >60 [facility] Comment on above: Result Comment: Non- GFR Calc Performed By: #### L 501.5200, L500.2500, L100.0100, L501.2300 ####[facility] [address] [place], [address] Glucose [Mass/Vol] 286 mg/dL High 74-106 [facility] Comment on above: Result Comment: Gluc ose result greater than or equal to 200 mg/dLsuggests DIABETES MELLITUS per A.D.A. criteria. Performed By: #### L 501.5200, L500.2500, L100.0100, L501.2300 ####[facility] [address] [place], [address] Potassium [Moles/Vol] 4.8 mmol/L Normal 3.5-5.1 [facility] Comment on above: Performed By: #### L 501.5200, L500.2500, L100.0100, L501.2300 ####[facility] [address] [place], [address] Sodium [Moles/Vol] 138 mmol/L Normal 136-145 [facility] Comment on above: Performed By: #### L 501.5200, L500.2500, L100.0100, L501.2300 ####[facility] [address] [place], [address] Urea nitrogen [Mass/Vol] 31 mg/dL High 7-18 [facility] Comment on above: Performed By: #### L 501.5200, L500.2500, L100.0100, L501.2300 ####[facility] [address] [place], [address] Basophil percentageOrdered B y: Autumn Gorman on 04-05-2024 Basophils/100 WBC (Bld) 0.1 % 0-1 [facility] Basophil percentage 0.1 % 0-1 [facility] Blood urea nitrogen (BUN)/cr eatinine ratioOrdered By: Autumn Gorman on 04-05-2024 Blood urea nitrogen (BUN)/creatinine ratio 24.8 RATIO High 10-20 [facility] CBC W/Diff, Automatedon 03-12 Absolute Lymph 1.85 X10 3/uL Normal 0.83-4.51 [facility] Comment on above: Performed By: #### L 501.5200, L500.2500, L100.0100, L501.2300 ####[facility] [address] [place], [address] Absolute Neut 15.0 X10 3/uL High 2.0-7.7 [facility] Comment on above: Performed By: #### L 501.5200, L500.2500, L100.0100, L501.2300 ####[facility] [address] [place], [address] Basophils/100 WBC (Bld) 0.1 % Normal 0-1 [facility] Comment on above: Performed By: #### L 501.5200, L500.2500, L100.0100, L501.2300 ####[facility] [address] [place], [address] Eosinophils/100 WBC (Bld) 0.0 % Normal 0-5 [facility] Comment on above: Performed By: #### L 501.5200, L500.2500, L100.0100, L501.2300 ####[facility] [address] [place], [address] Erythrocyte distribution width (RBC) [Ratio] 13.8 % Normal 11.6-14.6 [facility] Comment on above: Performed By: #### L 501.5200, L500.2500, L100.0100, L501.2300 ####[facility] [address] [place], [address] Hematocrit (Bld) [Volume fraction] 42.8 % Normal 37-47 [facility] Comment on above: Performed By: #### L 501.5200, L500.2500, L100.0100, L501.2300 ####[facility] [address] [place], [address] Hemoglobin (Bld) [Mass/Vol] 13.4 g/dL Normal 12.0-15.0 [facility] Comment on above: Performed By: #### L 501.5200, L500.2500, L100.0100, L501.2300 ####[facility] [address] [place], [address] IG% 0.700 Normal 0.0-0.9 [facility] Comment on above: Result Comment: IG% - Immature Granulocytes (promyelocytes, myelocytes andmetamyelocytes) > 1% indicates that a LEFT SHIFT is Present. Performed By: #### L 501.5200, L500.2500, L100.0100, L501.2300 ####[facility] [address] [place], [address] Lymphocytes/100 WBC (Bld) 10.5 % Low 19-41 [facility] Comment on above: Performed By: #### L 501.5200, L500.2500, L100.0100, L501.2300 ####[facility] [address] [place], [address] MCH (RBC) [Entitic mass] 27.8 pg Normal 27.0-32.0 [facility] Comment on above: Performed By: #### L 501.5200, L500.2500, L100.0100, L501.2300 ####[facility] [address] [place], [address] MCHC (RBC) [Mass/Vol] 31.3 g/dL Low 32-36 [facility] Comment on above: Performed By: #### L 501.5200, L500.2500, L100.0100, L501.2300 ####[facility] [address] [place], [address] MCV (RBC) [Entitic vol] 88.8 fL Normal 81-99 [facility] Comment on above: Performed By: #### L 501.5200, L500.2500, L100.0100, L501.2300 ####[facility] [address] [place], [address] Monocytes/100 WBC (Bld) 2.9 % Normal 0-10 [facility] Comment on above: Performed By: #### L 501.5200, L500.2500, L100.0100, L501.2300 ####[facility] [address] [place], [address] Neutrophils/100 WBC (Bld) 85.8 % High 47-70 [facility] Comment on above: Performed By: #### L 501.5200, L500.2500, L100.0100, L501.2300 ####[facility] [address] [place], [address] Nucleated RBC (Bld) [#/Vol] 0 10*3/uL Normal 0-5 [facility] Comment on above: Performed By: #### L 501.5200, L500.2500, L100.0100, L501.2300 ####[facility] [address] [place], [address] Platelet mean volume (Bld) [Entitic vol] 9.8 fL Normal 6.2-12.0 [facility] Comment on above: Performed By: #### L 501.5200, L500.2500, L100.0100, L501.2300 ####[facility] [address] [place], [address] Platelets (Bld) [#/Vol] 221 10*3/uL Normal 150-450 [facility] Comment on above: Performed By: #### L 501.5200, L500.2500, L100.0100, L501.2300 ####[facility] [address] [place], [address] RBC (Bld) [#/Vol] 4.82 10*6/uL Normal 4.2-5.4 [facility] Comment on above: Performed By: #### L 501.5200, L500.2500, L100.0100, L501.2300 ####[facility] [address] [place], [address] RDW SD 45.0 fl High 35.1-43.9 [facility] Comment on above: Performed By: #### L 501.5200, L500.2500, L100.0100, L501.2300 ####[facility] [address] [place], [address] WBC (Bld) [#/Vol] 17.5 10*3/uL High 4.4-11.0 [facility] Comment on above: Performed By: #### L 501.5200, L500.2500, L100.0100, L501.2300 ####[facility] [address] [place], [address] Calcium [Mass/Vol]Ordered By : Autumn Gorman on 04-05-2024 Serum or plasma calcium measurement (mass/volume) 10.1 mg/dL 8.5-10.1 [facility] Carbon dioxide measurementOr dered By: Autumn Gorman on 04-05-2024 CO2 [Moles/Vol] 27.0 mmol/L 21.0-32.0 [facility] Carbon dioxide measurement 27.0 mmol/L 21.0-32.0 [facility] Chloride measurementOrdered By: Autumn Gorman on 04-05-2024 Chloride [Moles/Vol] 107 mmol/L 98-107 [facility] Chloride measurement 107 mmol/L 98-107 [facility] Creatinine [Mass/Vol]Ordered By: Autumn Gorman on 04-05-2024 Serum or plasma creatinine measurement (mass/volume) 1.25 mg/dL High 0.55-1.02 [facility] Eosinophil percentageOrdered By: Autumn Gorman on 04-05-2024 Eosinophils/100 WBC (Bld) 0.0 % 0-5 [facility] Eosinophil percentage 0.0 % 0-5 [facility] Erythrocyte distribution wid th (RBC) [Ratio]Ordered By: Autumn Gorman on 04-05-2024 Erythrocyte distribution width ratio 13.8 % 11.6-14.6 [facility] Erythrocyte distribution wid th ratioOrdered By: Autumn Gorman on 04-05-2024 Erythrocyte distribution width (RBC) [Ratio] 13.8 % 11.6-14.6 [facility] Erythrocyte distribution wid th standard deviationOrdered By: Autumn Gorman on 04-05-2024 Erythrocyte distribution width (RBC) [Ratio] 45.0 fl High 35.1-43.9 [facility] Erythrocyte distribution width standard deviation 45.0 fl High 35.1-43.9 [facility] Estimated glomerular filtrat ion rate (GFR) AmericanOrdered By: Autumn Gorman on 04-05-2024 Estimated glomerular filtration rate (GFR) 57 mL/min Low >60 [facility] Estimation of creatinine jennifer aranceOrdered By: Autumn Gorman on 04-05-2024 Estimation of creatinine clearance 54.75 ml/min [facility] Glomerular filtration rate ( GFR) estimationOrdered By: Autumn Gorman on 04-05-2024 GFR/1.73 sq M.predicted among non-blacks MDRD (S/P/Bld) [Vol rate/Area] 47 mL/min/{1.73_m2} Low >60 [facility] Glomerular filtration rate (GFR) estimation 47 mL/min Low >60 [facility] Glucose measurementOrdered B y: Autumn Gorman on 04-05-2024 Glucose [Mass/Vol] 286 mg/dL High 74-106 [facility] Glucose measurement 286 mg/dL High 74-106 [facility] Hematocrit Auto (Bld) [Volum e fraction]Ordered By: Autumn Gorman on 04-05-2024 Hematocrit (Bld) [Volume fraction] 42.8 % 37-47 [facility] Automated blood hematocrit (percentage) 42.8 % 37-47 [facility] Hemoglobin measurementOrdere d By: Autumn Gorman on 04-05-2024 Hemoglobin (Bld) [Mass/Vol] 13.4 g/dL 12.0-15.0 [facility] Hemoglobin measurement 13.4 g/dL 12.0-15.0 [facility] Immature granulocytes/100 WB C Auto (Bld)Ordered By: Autumn Gorman on 04-05-2024 Immature granulocytes/100 WBC (Bld) 0.700 % 0.0-0.9 [facility] Automated immature granulocyte percentage 0.700 % 0.0-0.9 [facility] Lymphocytes Auto (Unsp spec) [#/Vol]Ordered By: Auutmn Gorman on 04-05-2024 Absolute lymphocyte count 1.85 X10^3/uL 0.83-4.51 [facility] Lymphocytes/100 WBC Auto (Un sp spec)Ordered By: Autumn Gorman on 04-05-2024 Automated lymphocyte count as percentage of total leukocytes 10.5 % Low 19-41 [facility] MCV (RBC) [Entitic vol]Order ed By: Autumn Gorman on 04-05-2024 MCV (mean corpuscular volume) determination 88.8 fL 81-99 [facility] MCV (mean corpuscular volume ) determinationOrdered By: Autumn Gorman on 04-05-2024 MCV (RBC) [Entitic vol] 88.8 fL 81-99 [facility] Magnesiumon 04-05-2024 Magnesium [Mass/Vol] 2.3 mg/dL Normal 1.6-2.6 [facility] Comment on above: Performed By: #### L 501.5200, L500.2500, L100.0100, L501.2300 ####[facility] [address] [place], [address] Magnesium measurementOrdered By: Autumn Gorman on 04-05-2024 Magnesium [Mass/Vol] 2.3 mg/dL 1.6-2.6 [facility] Magnesium measurement 2.3 mg/dL 1.6-2.6 [facility] Mean corpuscular hemoglobin (MCH) determinationOrdered By: Autumn Gorman on 04-05-2024 MCH (RBC) [Entitic mass] 27.8 pg 27.0-32.0 [facility] Mean corpuscular hemoglobin (MCH) determination 27.8 pg 27.0-32.0 [facility] Mean corpuscular hemoglobin concentration (MCHC) determinationOrdered By: Autumn Gorman on 04-05-2024 Mean corpuscular hemoglobin concentration (MCHC) determination 31.3 g/dL Low 32-36 [facility] Mean platelet volume determi nationOrdered By: Autumn Gorman on 04-05-2024 Mean platelet volume determination 9.8 fl 6.2-12.0 [facility] Monocyte percentageOrdered B y: Autumn Gorman on 04-05-2024 Monocytes/100 WBC (Bld) 2.9 % 0-10 [facility] Monocyte percentage 2.9 % 0-10 [facility] Neutrophil percentageOrdered By: Autumn Gorman on 04-05-2024 Neutrophils/100 WBC (Bld) 85.8 % High 47-70 [facility] Neutrophil percentage 85.8 % High 47-70 [facility] Nucleated red blood cell per centageOrdered By: Autumn Gorman on 04-05-2024 Nucleated red blood cell percentage 0 % 0-5 [facility] Phosphoruson 04-05-2024 Phosphate [Mass/Vol] 3.3 mg/dL Normal 2.5-4.9 [facility] Comment on above: Performed By: #### L 501.5200, L500.2500, L100.0100, L501.2300 ####[facility] [address] [facility] [place], [address] Phosphorus measurementOrdere d By: Autumn Gorman on 04-05-2024 Phosphorus measurement 3.3 mg/dL 2.5-4.9 [facility] Platelet countOrdered By: Fred Gorman on 04-05-2024 Platelets (Bld) [#/Vol] 221 10*3/uL 150-450 [facility] Platelet count 221 K/mm3 150-450 [facility] Potassium measurementOrdered By: Autumn Gorman on 04-05-2024 Potassium [Moles/Vol] 4.8 mmol/L 3.5-5.1 [facility] Potassium measurement 4.8 mmol/L 3.5-5.1 [facility] RBC Auto (Bld) [#/Vol]Ordere d By: Autumn Gorman on 04-05-2024 RBC (Bld) [#/Vol] 4.82 10*6/uL 4.2-5.4 [facility] Automated blood erythrocyte count 4.82 M/mm3 4.2-5.4 [facility] Serum anion gap measurementO rdered By: Autumn Gorman on 04-05-2024 Serum anion gap measurement 4 Low 5-15 [facility] Serum or plasma calcium heather urement (mass/volume)Ordered By: Autumn Gorman on 04-05-2024 Calcium [Mass/Vol] 10.1 mg/dL 8.5-10.1 [facility] Serum or plasma creatinine m easurement (mass/volume)Ordered By: Autumn Gorman on 04-05-2024 Creatinine [Mass/Vol] 1.25 mg/dL High 0.55-1.02 [facility] Serum or plasma urea nitroge n measurement (mass/volume)Ordered By: Autumn Gorman on 04-05-2024 Urea nitrogen [Mass/Vol] 31 mg/dL High 7-18 [facility] Sodium levelOrdered By: Anthony Gorman on 04-05-2024 Sodium [Moles/Vol] 138 mmol/L 136-145 [facility] Sodium level 138 mmol/L 136-145 [facility] Urea nitrogen [Mass/Vol]Orde red By: Autumn Gorman on 04-05-2024 Serum or plasma urea nitrogen measurement (mass/volume) 31 mg/dL High 7-18 [facility] White blood cell (WBC) count Ordered By: Autumn Gorman on 04-05-2024 WBC (Bld) [#/Vol] 17.5 10*3/uL High 4.4-11.0 [facility] White blood cell (WBC) count 17.5 K/mm3 High 4.4-11.0 [facility] Basic Metabolic Profile (BMP )on 04-04-2024 BUN/CRE 14.8 RATIO Normal 10-20 [facility] Comment on above: Performed By: #### L 501.9520, L100.0100, L500.2500 ####[facility] [address] [place], [address] CA,Total 9.6 mg/dL Normal 8.5-10.1 [facility] Comment on above: Performed By: #### L 501.9520, L100.0100, L500.2500 ####[facility] [address] [place], [address] Chloride [Moles/Vol] 106 mmol/L Normal 98-107 [facility] Comment on above: Performed By: #### L 501.9520, L100.0100, L500.2500 ####[facility] [address] [place], [address] CO2 [Moles/Vol] 22.0 mmol/L Normal 21.0-32.0 [facility] Comment on above: Performed By: #### L 501.9520, L100.0100, L500.2500 ####[facility] [address] [place], [address] Creatinine [Mass/Vol] 1.28 mg/dL High 0.55-1.02 [facility] Comment on above: Result Comment: The validity of the calculated GFR GFRAA in patients over70 years has not been determined. Clinical correlation isessential. Performed By: #### L 501.9520, L100.0100, L500.2500 ####[facility] [address] [place], [address] ECRCL 53.47 ml/min Normal [facility] Comment on above: Performed By: #### L 501.9520, L100.0100, L500.2500 ####[facility] [address] [place], [address] EST GFR - AA 55 mL/min Low >60 [facility] Comment on above: Result Comment: Afri can Nigerian GFR Calc Performed By: #### L 501.9520, L100.0100, L500.2500 ####[facility] [address] [place], [address] GAP 9 Normal 5-15 [facility] Comment on above: Performed By: #### L 501.9520, L100.0100, L500.2500 ####[facility] [address] [place], [address] GFR/1.73 sq M.predicted among non-blacks MDRD (S/P/Bld) [Vol rate/Area] 45 mL/min/{1.73_m2} Low >60 [facility] Comment on above: Result Comment: Non- GFR Calc Performed By: #### L 501.9520, L100.0100, L500.2500 ####[facility] [address] [place], [address] Glucose [Mass/Vol] 264 mg/dL High 74-106 [facility] Comment on above: Result Comment: Gluc ose result greater than or equal to 200 mg/dLsuggests DIABETES MELLITUS per A.D.A. criteria. Performed By: #### L 501.9520, L100.0100, L500.2500 ####[facility] [address] [place], [address] Potassium [Moles/Vol] 4.7 mmol/L Normal 3.5-5.1 [facility] Comment on above: Performed By: #### L 501.9520, L100.0100, L500.2500 ####[facility] [address] [place], [address] Sodium [Moles/Vol] 136 mmol/L Normal 136-145 [facility] Comment on above: Performed By: #### L 501.9520, L100.0100, L500.2500 ####[facility] [address] [place], [address] Urea nitrogen [Mass/Vol] 19 mg/dL High 7-18 [facility] Comment on above: Performed By: #### L 501.9520, L100.0100, L500.2500 ####[facility] [address] [place], [address] CBC W/Diff, Automatedon 01-2 Absolute Lymph 1.49 X10 3/uL Normal 0.83-4.51 [facility] Comment on above: Performed By: #### L 501.9520, L100.0100, L500.2500 ####[facility] [address] [place], [address] Absolute Neut 6.2 X10 3/uL Normal 2.0-7.7 [facility] Comment on above: Performed By: #### L 501.9520, L100.0100, L500.2500 ####[facility] [address] [place], [address] Basophils/100 WBC (Bld) 0.3 % Normal 0-1 [facility] Comment on above: Performed By: #### L 501.9520, L100.0100, L500.2500 ####[facility] [address] [place], [address] Eosinophils/100 WBC (Bld) 0.1 % Normal 0-5 [facility] Comment on above: Performed By: #### L 501.9520, L100.0100, L500.2500 ####[facility] [address] [place], [address] Erythrocyte distribution width (RBC) [Ratio] 13.5 % Normal 11.6-14.6 [facility] Comment on above: Performed By: #### L 501.9520, L100.0100, L500.2500 ####[facility] [address] [place], [address] Hematocrit (Bld) [Volume fraction] 41.8 % Normal 37-47 [facility] Comment on above: Performed By: #### L 501.9520, L100.0100, L500.2500 ####[facility] [address] [place], [address] Hemoglobin (Bld) [Mass/Vol] 13.6 g/dL Normal 12.0-15.0 [facility] Comment on above: Performed By: #### L 501.9520, L100.0100, L500.2500 ####[facility] [address] [place], [address] IG% 0.800 Normal 0.0-0.9 [facility] Comment on above: Result Comment: IG% - Immature Granulocytes (promyelocytes, myelocytes andmetamyelocytes) > 1% indicates that a LEFT SHIFT is Present. Performed By: #### L 501.9520, L100.0100, L500.2500 ####[facility] [address] [place], [address] Lymphocytes/100 WBC (Bld) 18.7 % Low 19-41 [facility] Comment on above: Performed By: #### L 501.9520, L100.0100, L500.2500 ####[facility] [address] [place], [address] MCH (RBC) [Entitic mass] 28.4 pg Normal 27.0-32.0 [facility] Comment on above: Performed By: #### L 501.9520, L100.0100, L500.2500 ####[facility] [address] [place], [address] MCHC (RBC) [Mass/Vol] 32.5 g/dL Normal 32-36 [facility] Comment on above: Performed By: #### L 501.9520, L100.0100, L500.2500 ####[facility] [address] [place], [address] MCV (RBC) [Entitic vol] 87.3 fL Normal 81-99 [facility] Comment on above: Performed By: #### L 501.9520, L100.0100, L500.2500 ####[facility] [address] [place], [address] Monocytes/100 WBC (Bld) 2.4 % Normal 0-10 [facility] Comment on above: Performed By: #### L 501.9520, L100.0100, L500.2500 ####[facility] [address] [place], [address] Neutrophils/100 WBC (Bld) 77.7 % High 47-70 [facility] Comment on above: Performed By: #### L 501.9520, L100.0100, L500.2500 ####[facility] [address] [place], [address] Nucleated RBC (Bld) [#/Vol] 0 10*3/uL Normal 0-5 [facility] Comment on above: Performed By: #### L 501.9520, L100.0100, L500.2500 ####[facility] [address] [place], [address] Platelet mean volume (Bld) [Entitic vol] 9.4 fL Normal 6.2-12.0 [facility] Comment on above: Performed By: #### L 501.9520, L100.0100, L500.2500 ####[facility] [address] [place], [address] Platelets (Bld) [#/Vol] 202 10*3/uL Normal 150-450 [facility] Comment on above: Performed By: #### L 501.9520, L100.0100, L500.2500 ####[facility] [address] [place], [address] RBC (Bld) [#/Vol] 4.79 10*6/uL Normal 4.2-5.4 [facility] Comment on above: Performed By: #### L 501.9520, L100.0100, L500.2500 ####[facility] [address] [place], [address] RDW SD 42.9 fl Normal 35.1-43.9 [facility] Comment on above: Performed By: #### L 501.9520, L100.0100, L500.2500 ####[facility] [address] [place], [address] WBC (Bld) [#/Vol] 8.0 10*3/uL Normal 4.4-11.0 [facility] Comment on above: Performed By: #### L 501.9520, L100.0100, L500.2500 ####[facility] [address] [place], [address] Serum or plasma thyroid stim ulating hormone (TSH) measurement (units/volume)Ordered By: Tita Winn on 04-04-2024 TSH Qn 0.692 uIU/mL 0.358-3.740 [facility] TSH QnOrdered By: Tita alfaro on 04-04-2024 Serum or plasma thyroid stimulating hormone (TSH) measurement (units/volume) 0.692 uIU/mL 0.358-3.740 [facility] Thyroid Stim Hormone (TSH)on 04-04-2024 TSH 0.692 uIU/mL Normal 0.358-3.740 [facility] Comment on above: Performed By: #### L 501.9520, L100.0100, L500.2500 ####[facility] [address] [place], [address] 12 Lead EKGon 04-03-2024 12 Lead EKG Normal [facility] Base excess Calc (BldV) [Mol es/Vol]Ordered By: Tita Winn on 04-03-2024 Blood base excess determination 1 mmol/L -2-2 [facility] Basic Metabolic Profile (BMP )on 04-03-2024 BUN/CRE 12.9 RATIO Normal 10-20 [facility] Comment on above: Performed By: #### L 100.0100, L500.2500 ####[facility] [address] [place], [address] CA,Total 9.3 mg/dL Normal 8.5-10.1 [facility] Comment on above: Performed By: #### L 100.0100, L500.2500 ####[facility] [address] [place], [address] Chloride [Moles/Vol] 105 mmol/L Normal 98-107 [facility] Comment on above: Performed By: #### L 100.0100, L500.2500 ####[facility] [address] [place], [address] CO2 [Moles/Vol] 27.0 mmol/L Normal 21.0-32.0 [facility] Comment on above: Performed By: #### L 100.0100, L500.2500 ####[facility] [address] [place], [address] Creatinine [Mass/Vol] 1.32 mg/dL High 0.55-1.02 [facility] Comment on above: Result Comment: The validity of the calculated GFR GFRAA in patients over70 years has not been determined. Clinical correlation isessential. Performed By: #### L 100.0100, L500.2500 ####[facility] [address] [place], [address] ECRCL 53.55 ml/min Normal [facility] Comment on above: Performed By: #### L 100.0100, L500.2500 ####[facility] [address] [place], [address] EST GFR - AA 53 mL/min Low >60 [facility] Comment on above: Result Comment: Afri can Nigerian GFR Calc Performed By: #### L 100.0100, L500.2500 ####[facility] [address] [place], [address] GAP 5 Normal 5-15 [facility] Comment on above: Performed By: #### L 100.0100, L500.2500 ####[facility] [address] [place], [address] GFR/1.73 sq M.predicted among non-blacks MDRD (S/P/Bld) [Vol rate/Area] 44 mL/min/{1.73_m2} Low >60 [facility] Comment on above: Result Comment: Non- GFR Calc Performed By: #### L 100.0100, L500.2500 ####[facility] [address] [place], [address] Glucose [Mass/Vol] 155 mg/dL High 74-106 [facility] Comment on above: Result Comment: Fast ing Glucose result greater than or equal to 126 mg/dLsuggests DIABETES MELLITUS per A.D.A. criteria. Performed By: #### L 100.0100, L500.2500 ####[facility] [address] [place], [address] Potassium [Moles/Vol] 4.4 mmol/L Normal 3.5-5.1 [facility] Comment on above: Performed By: #### L 100.0100, L500.2500 ####[facility] [address] [place], [address] Sodium [Moles/Vol] 137 mmol/L Normal 136-145 [facility] Comment on above: Performed By: #### L 100.0100, L500.2500 ####[facility] [address] [place], [address] Urea nitrogen [Mass/Vol] 17 mg/dL Normal 7-18 [facility] Comment on above: Performed By: #### L 100.0100, L500.2500 ####[facility] [address] [place], [address] Blood Gases by [facility] 025 Base excess Calc (Bld) [Moles/Vol] 1 mmol/L Normal -2 to +2 [facility] Comment on above: Performed By: #### L 9000.0800 ####[facility] [address] [place], [address] Blood Gas Type ART Normal [facility] Comment on above: Performed By: #### L 8999.0800 ####[facility] [address] [place], [address] CO2 [Moles/Vol] 28 mmol/L Normal [facility] Comment on above: Performed By: #### L 8999.0800 ####[facility] [address] [place], [address] FI02 2.0 Normal [facility] Comment on above: Performed By: #### L 8999.0800 ####[facility] [address] [place], [address] HCO3 (Bld) [Moles/Vol] 26.6 mmol/L High 22-26 [facility] Comment on above: Performed By: #### L 8999.0800 ####[facility] [address] [place], [address] Mode Not entered Normal [facility] Comment on above: Performed By: #### L 8999.0800 ####[facility] [address] [place], [address] O2 Delivery Dev Cannula Normal [facility] Comment on above: Performed By: #### L 8999.0800 ####[facility] [address] [place], [address] pCO2 48.6 mmHg High 35-45 [facility] Comment on above: Performed By: #### L 8999.0800 ####[facility] [address] [place], [address] pH (Bld) 7.35 [pH] Normal 7.35-7.45 [facility] Comment on above: Performed By: #### L 8999.0800 ####[facility] [address] [place], [address] PO2 74 mmHG Low 75-100 [facility] Comment on above: Performed By: #### L 9000.0800 ####[facility] [address] [place], [address] SITE Not entered Normal [facility] Comment on above: Performed By: #### L 9000.0800 ####[facility] [address] [place], [address] SO2 94 Low 95-99 [facility] Comment on above: Performed By: #### L 9000.0800 ####[facility] [address] [place], [address] Blood base excess determinat ionOrdered By: Tita Winn on 04-03-2024 Base excess Calc (BldV) [Moles/Vol] 1 mmol/L -2-2 [facility] Blood bicarbonate measuremen tOrdered By: Tita Winn on 04-03-2024 HCO3 (Bld) [Moles/Vol] 26.6 mmol/L High 22-26 [facility] Blood bicarbonate measurement 26.6 mmol/L High 22-26 [facility] CBC W/Diff, Automatedon 03-12 Absolute Lymph 2.94 X10 3/uL Normal 0.83-4.51 [facility] Comment on above: Performed By: #### L 100.0100, L500.2500 ####[facility] [address] [place], [address] Absolute Neut 3.9 X10 3/uL Normal 2.0-7.7 [facility] Comment on above: Performed By: #### L 100.0100, L500.2500 ####[facility] [address] [place], [address] Basophils/100 WBC (Bld) 0.5 % Normal 0-1 [facility] Comment on above: Performed By: #### L 100.0100, L500.2500 ####[facility] [address] [place], [address] Eosinophils/100 WBC (Bld) 3.3 % Normal 0-5 [facility] Comment on above: Performed By: #### L 100.0100, L500.2500 ####[facility] [address] [place], [address] Erythrocyte distribution width (RBC) [Ratio] 13.9 % Normal 11.6-14.6 [facility] Comment on above: Performed By: #### L 100.0100, L500.2500 ####[facility] [address] [place], [address] Hematocrit (Bld) [Volume fraction] 42.3 % Normal 37-47 [facility] Comment on above: Performed By: #### L 100.0100, L500.2500 ####[facility] [address] [place], [address] Hemoglobin (Bld) [Mass/Vol] 13.5 g/dL Normal 12.0-15.0 [facility] Comment on above: Performed By: #### L 100.0100, L500.2500 ####[facility] [address] [place], [address] IG% 0.900 Normal 0.0-0.9 [facility] Comment on above: Result Comment: IG% - Immature Granulocytes (promyelocytes, myelocytes andmetamyelocytes) > 1% indicates that a LEFT SHIFT is Present. Performed By: #### L 100.0100, L500.2500 ####[facility] [address] [place], [address] Lymphocytes/100 WBC (Bld) 37.8 % Normal 19-41 [facility] Comment on above: Performed By: #### L 100.0100, L500.2500 ####[facility] [address] [place], [address] MCH (RBC) [Entitic mass] 28.3 pg Normal 27.0-32.0 [facility] Comment on above: Performed By: #### L 100.0100, L500.2500 ####[facility] [address] [place], [address] MCHC (RBC) [Mass/Vol] 31.9 g/dL Low 32-36 [facility] Comment on above: Performed By: #### L 100.0100, L500.2500 ####[facility] [address] [place], [address] MCV (RBC) [Entitic vol] 88.7 fL Normal 81-99 [facility] Comment on above: Performed By: #### L 100.0100, L500.2500 ####[facility] [address] [place], [address] Monocytes/100 WBC (Bld) 8.0 % Normal 0-10 [facility] Comment on above: Performed By: #### L 100.0100, L500.2500 ####[facility] [address] [place], [address] Neutrophils/100 WBC (Bld) 49.5 % Normal 47-70 [facility] Comment on above: Performed By: #### L 100.0100, L500.2500 ####[facility] [address] [place], [address] Nucleated RBC (Bld) [#/Vol] 0 10*3/uL Normal 0-5 [facility] Comment on above: Performed By: #### L 100.0100, L500.2500 ####[facility] [address] [place], [address] Platelet mean volume (Bld) [Entitic vol] 9.9 fL Normal 6.2-12.0 [facility] Comment on above: Performed By: #### L 100.0100, L500.2500 ####[facility] [address] [place], [address] Platelets (Bld) [#/Vol] 211 10*3/uL Normal 150-450 [facility] Comment on above: Performed By: #### L 100.0100, L500.2500 ####[facility] [address] [place], [address] RBC (Bld) [#/Vol] 4.77 10*6/uL Normal 4.2-5.4 [facility] Comment on above: Performed By: #### L 100.0100, L500.2500 ####[facility] [address] [place], [address] RDW SD 45.1 fl High 35.1-43.9 [facility] Comment on above: Performed By: #### L 100.0100, L500.2500 ####[facility] [address] [place], [address] WBC (Bld) [#/Vol] 7.8 10*3/uL Normal 4.4-11.0 [facility] Comment on above: Performed By: #### L 100.0100, L500.2500 ####[facility] [address] [place], [address] Chest PA and Lateralon 04-03 Chest PA and Lateral Normal [facility] Determination of fraction of inspired oxygenOrdered By: Tita Winn on 04-03-2024 Determination of fraction of inspired oxygen 2.0 [facility] Emergency Department Summary on 04-03-2024 Emergency Department Summary Normal [facility] H AND P Exam - Hospitaliston 04-03-2024 H&P Exam - Hospitalist Normal [facility] Influenza virus A and B and SARS-CoV-2 (COVID-19) and Respiratory syncytial virus RNAOrdered By: Jcarlos Garcia on 04-03-2024 SARS-CoV-2 (COVID-19) RNA BEAU+probe Ql (Unsp spec) [facility] M100.678on 04-03-2024 M100.678 Pending SARS-CoV-2 (COVID 19) Negative INFLUENZA A Negative INFLUENZA B Negative RSV PCR Negative Normal [facility] Comment on above: Performed By: #### M 100.678 ####[facility] [address] [facility] [place], [place], [id number] Measurement, pHOrdered By: Rhoda Winn on 04-03-2024 pH (Unsp spec) 7.35 [pH] 7.35-7.45 [facility] No Panel InformationOrdered By: Tita Winn on 04-03-2024 ART [facility] Not entered [facility] Cannula [facility] Oxygen saturation measuremen tOrdered By: Tita Winn on 04-03-2024 Oxygen saturation measurement 94 % Low 95-99 [facility] Partial pressure of carbon d ioxide measurementOrdered By: Tita Winn on 04-03-2024 Partial pressure of carbon dioxide measurement 48.6 mmHg High 35-45 [facility] Partial pressure of oxygen m easurementOrdered By: Tita Winn on 04-03-2024 Partial pressure of oxygen measurement 74 mmHG Low 75-100 [facility] RESPIRATORY PANEL MOLECULARo n 04-03-2024 RP PANEL Normal [facility] Comment on above: Performed By: #### M 100.638 ####[facility] [address] [facility] [place], [place], [id number] Respiratory pathogens DNA an d RNA panel BEAU+probe (Resp)Ordered By: Tita Winn on 04-03-2024 Respiratory pathogens detection panel by molecular detection method Parainfluenza 3 Abnormal [facility] Respiratory pathogens detect ion panel by molecular detection methodOrdered By: Tita Winn on 04-03-2024 Respiratory pathogens DNA and RNA panel BEAU+probe (Resp) Parainfluenza 3 Abnormal [facility] Total carbon dioxide measure mentOrdered By: Tita Winn on 04-03-2024 CO2 [Moles/Vol] 28 mmol/L [facility] Total carbon dioxide measurement 28 mmol/L [facility] pH (Unsp spec)Ordered By: Joe Winn on 04-03-2024 Measurement, pH 7.35 7.35-7.45 [facility] Abdomen WITH IV Contraston 1 04-22-2023 Abdomen WITH IV Contrast Normal [facility] CREATININE FINGERSTICKon Creatinine [Mass/Vol] 1.3 mg/dL High 0.55-1.02 [facility] Comment on above: Performed By: #### L 9100.0200 ####[facility] [address] [place], [place], [address] GFR/1.73 sq M.predicted among non-blacks MDRD (S/P/Bld) [Vol rate/Area] 44.0000 mL/min/{1.73_m2} Low >60 [facility] Comment on above: Performed By: #### L 1100.0200 ####[facility] [address] [place], [place], [id number] Creatinine measurement at be dsideOrdered By: Alan Mack on 02-20-2024 Creatinine measurement at bedside 1.3 mg/dL High 0.55-1.02 [facility] EGFROrdered By: Alan Aquino ur on 02-20-2024 EGFR 44.0000 mL/min Low >60 [facility] Internal Medicine Office Vis iton 01-27-2024 Internal Medicine Office Visit Normal [facility] 12 Lead EKGon 01-10-2024 12 Lead EKG Normal [facility] 12 Lead EKG Normal [facility] BNP,B-Type NATRIURETIC PEPTI Audra 01-10-2024 Natriuretic peptide B (Bld) [Mass/Vol] 39.7 pg/mL Normal 0-100 [facility] Comment on above: Performed By: #### L 503.6689 ####[facility] [address] [place], [place], [id number] Basic Metabolic Profile (BMP )on 01-10-2024 BUN/CRE 15.7 RATIO Normal 10-20 [facility] Comment on above: Order Comment: 1Y Performed By: #### L 501.5411, L100.0100, L500.2500 ####[facility] [address] [place], [address] CA,Total 9.2 mg/dL Normal 8.5-10.1 [facility] Comment on above: Order Comment: 1Y Performed By: #### L 501.5425, L100.0100, L500.2500 ####[facility] [address] [place], [address] Chloride [Moles/Vol] 106 mmol/L Normal 98-107 [facility] Comment on above: Order Comment: 1Y Performed By: #### L 501.5425, L100.0100, L500.2500 ####[facility] [address] [place], [address] CO2 [Moles/Vol] 26.0 mmol/L Normal 21.0-32.0 [facility] Comment on above: Order Comment: 1Y Performed By: #### L 501.5425, L100.0100, L500.2500 ####[facility] [address] [place], [address] Creatinine [Mass/Vol] 1.40 mg/dL High 0.55-1.02 [facility] Comment on above: Order Comment: 1Y Result Comment: The validity of the calculated GFR GFRAA in patients over70 years has not been determined. Clinical correlation isessential. Performed By: #### L 501.5425, L100.0100, L500.2500 ####[facility] [address] [place], [address] ECRCL 49.39 ml/min Normal [facility] Comment on above: Order Comment: 1Y Performed By: #### L 501.5425, L100.0100, L500.2500 ####[facility] [address] [place], [address] EST GFR - AA 50 mL/min Low >60 [facility] Comment on above: Order Comment: 1Y Result Comment: Afri can Nigerian GFR Calc Performed By: #### L 501.5425, L100.0100, L500.2500 ####[facility] [address] [place], [address] GAP 6 Normal 5-15 [facility] Comment on above: Order Comment: 1Y Performed By: #### L 501.5425, L100.0100, L500.2500 ####[facility] [address] [place], [address] GFR/1.73 sq M.predicted among non-blacks MDRD (S/P/Bld) [Vol rate/Area] 41 mL/min/{1.73_m2} Low >60 [facility] Comment on above: Order Comment: 1Y Result Comment: Non- GFR Calc Performed By: #### L 501.5425, L100.0100, L500.2500 ####[facility] [address] [place], [address] Glucose [Mass/Vol] 221 mg/dL High 74-106 [facility] Comment on above: Order Comment: 1Y Result Comment: Gluc ose result greater than or equal to 200 mg/dLsuggests DIABETES MELLITUS per A.D.A. criteria. Performed By: #### L 501.5425, L100.0100, L500.2500 ####[facility] [address] [place], [address] Potassium [Moles/Vol] 3.7 mmol/L Normal 3.5-5.1 [facility] Comment on above: Order Comment: 1Y Performed By: #### L 501.5425, L100.0100, L500.2500 ####[facility] [address] [place], [address] Sodium [Moles/Vol] 139 mmol/L Normal 136-145 [facility] Comment on above: Order Comment: 1Y Performed By: #### L 501.5425, L100.0100, L500.2500 ####[facility] [address] [place], [address] Urea nitrogen [Mass/Vol] 22 mg/dL High 7-18 [facility] Comment on above: Order Comment: 1Y Performed By: #### L 501.5425, L100.0100, L500.2500 ####[facility] [address] [place], [address] CBC W/Diff, Automatedon 11-0 1-2023 Absolute Lymph 4.09 X10 3/uL Normal 0.83-4.51 [facility] Comment on above: Performed By: #### L 501.5425, L100.0100, L500.2500 ####[facility] [address] [place], [address] Absolute Neut 7.0 X10 3/uL Normal 2.0-7.7 [facility] Comment on above: Performed By: #### L 501.5425, L100.0100, L500.2500 ####[facility] [address] [place], [address] Basophils/100 WBC (Bld) 0.5 % Normal 0-1 [facility] Comment on above: Performed By: #### L 501.5425, L100.0100, L500.2500 ####[facility] [address] [place], [address] Eosinophils/100 WBC (Bld) 2.2 % Normal 0-5 [facility] Comment on above: Performed By: #### L 501.5425, L100.0100, L500.2500 ####[facility] [address] [place], [address] Erythrocyte distribution width (RBC) [Ratio] 13.7 % Normal 11.6-14.6 [facility] Comment on above: Performed By: #### L 501.5425, L100.0100, L500.2500 ####[facility] [address] [place], [address] Hematocrit (Bld) [Volume fraction] 38.8 % Normal 37-47 [facility] Comment on above: Performed By: #### L 501.5425, L100.0100, L500.2500 ####[facility] [address] [place], [address] Hemoglobin (Bld) [Mass/Vol] 12.7 g/dL Normal 12.0-15.0 [facility] Comment on above: Performed By: #### L 501.5425, L100.0100, L500.2500 ####[facility] [address] [place], [address] IG% 0.800 Normal 0.0-0.9 [facility] Comment on above: Result Comment: IG% - Immature Granulocytes (promyelocytes, myelocytes andmetamyelocytes) > 1% indicates that a LEFT SHIFT is Present. Performed By: #### L 501.5425, L100.0100, L500.2500 ####[facility] [address] [place], [address] Lymphocytes/100 WBC (Bld) 33.7 % Normal 19-41 [facility] Comment on above: Performed By: #### L 501.5425, L100.0100, L500.2500 ####[facility] [address] [place], [address] MCH (RBC) [Entitic mass] 29.1 pg Normal 27.0-32.0 [facility] Comment on above: Performed By: #### L 501.5425, L100.0100, L500.2500 ####[facility] [address] [place], [address] MCHC (RBC) [Mass/Vol] 32.7 g/dL Normal 32-36 [facility] Comment on above: Performed By: #### L 501.5425, L100.0100, L500.2500 ####[facility] [address] [place], [address] MCV (RBC) [Entitic vol] 89.0 fL Normal 81-99 [facility] Comment on above: Performed By: #### L 501.5425, L100.0100, L500.2500 ####[facility] [address] [place], [address] Monocytes/100 WBC (Bld) 5.2 % Normal 0-10 [facility] Comment on above: Performed By: #### L 501.5425, L100.0100, L500.2500 ####[facility] [address] [place], [address] Neutrophils/100 WBC (Bld) 57.6 % Normal 47-70 [facility] Comment on above: Performed By: #### L 501.5425, L100.0100, L500.2500 ####[facility] [address] [place], [address] Nucleated RBC (Bld) [#/Vol] 0 10*3/uL Normal 0-5 [facility] Comment on above: Performed By: #### L 501.5425, L100.0100, L500.2500 ####[facility] [address] [place], [address] Platelet mean volume (Bld) [Entitic vol] 9.7 fL Normal 6.2-12.0 [facility] Comment on above: Performed By: #### L 501.5425, L100.0100, L500.2500 ####[facility] [address] [place], [address] Platelets (Bld) [#/Vol] 281 10*3/uL Normal 150-450 [facility] Comment on above: Performed By: #### L 501.5425, L100.0100, L500.2500 ####[facility] [address] [place], [address] RBC (Bld) [#/Vol] 4.36 10*6/uL Normal 4.2-5.4 [facility] Comment on above: Performed By: #### L 501.5425, L100.0100, L500.2500 ####[facility] [address] [place], [address] RDW SD 44.2 fl High 35.1-43.9 [facility] Comment on above: Performed By: #### L 501.5425, L100.0100, L500.2500 ####[facility] [address] [place], [address] WBC (Bld) [#/Vol] 12.2 10*3/uL High 4.4-11.0 [facility] Comment on above: Performed By: #### L 501.5425, L100.0100, L500.2500 ####[facility] [address] [place], [address] Emergency Department Summary on 01-10-2024 Emergency Department Summary Normal [facility] L501.4020on 01-10-2024 TROPONIN-I HS 6 pg/mL Normal 3.0-54.0 [facility] Comment on above: Result Comment: Plea se Note: New Test Units and Gender Specific Reference Ranges. For more information see Policy Stat Procedure [place] High Sensitivity Troponin (TNIH) and attachments. Performed By: #### L 501.4020 ####[facility] [address] [place], [address] L501.5425on 01-10-2024 TROPONIN-I HS 4 pg/mL Normal 3.0-54.0 [facility] Comment on above: Order Comment: 1Y Result Comment: Plea se Note: New Test Units and Gender Specific Reference Ranges. For more information see Policy Stat Procedure [place] High Sensitivity Troponin (TNIH) and attachments. Performed By: #### L 501.5425, L100.0100, L500.2500 ####[facility] [address] [place], [address] Ribs Uni Min 3V w/PA Cheston 01-10-2024 Ribs Uni Min 3V w/PA Chest Normal [facility] Pacemaker Checkon 12-09-2023 Pacemaker Check Normal [facility] 12 Lead EKGon 12-04-2023 12 Lead EKG Normal [facility] Basic Metabolic Profile (BMP )on 12-04-2023 BUN/CRE 12.9 RATIO Normal 10-20 [facility] Comment on above: Order Comment: 1Y Performed By: #### L 501.5425, L100.0100, L500.2500 ####[facility] [address] [place], [address] CA,Total 8.8 mg/dL Normal 8.5-10.1 [facility] Comment on above: Order Comment: 1Y Performed By: #### L 501.5425, L100.0100, L500.2500 ####[facility] [address] [place], [address] Chloride [Moles/Vol] 109 mmol/L High 98-107 [facility] Comment on above: Order Comment: 1Y Performed By: #### L 501.5425, L100.0100, L500.2500 ####[facility] [address] [place], [address] CO2 [Moles/Vol] 25.0 mmol/L Normal 21.0-32.0 [facility] Comment on above: Order Comment: 1Y Performed By: #### L 501.5425, L100.0100, L500.2500 ####[facility] [address] [place], [address] Creatinine [Mass/Vol] 1.32 mg/dL High 0.55-1.02 [facility] Comment on above: Order Comment: 1Y Result Comment: The validity of the calculated GFR GFRAA in patients over70 years has not been determined. Clinical correlation isessential. Performed By: #### L 501.5425, L100.0100, L500.2500 ####[facility] [address] [place], [address] EST GFR - AA 53 mL/min Low >60 [facility] Comment on above: Order Comment: 1Y Result Comment: Afri can Nigerian GFR Calc Performed By: #### L 501.5425, L100.0100, L500.2500 ####[facility] [address] [place], [address] GAP 5 Normal 5-15 [facility] Comment on above: Order Comment: 1Y Performed By: #### L 501.5425, L100.0100, L500.2500 ####[facility] [address] [place], [address] GFR/1.73 sq M.predicted among non-blacks MDRD (S/P/Bld) [Vol rate/Area] 44 mL/min/{1.73_m2} Low >60 [facility] Comment on above: Order Comment: 1Y Result Comment: Non- GFR Calc Performed By: #### L 501.5425, L100.0100, L500.2500 ####[facility] [address] [place], [address] Glucose [Mass/Vol] 165 mg/dL High 74-106 [facility] Comment on above: Order Comment: 1Y Result Comment: Fast ing Glucose result greater than or equal to 126 mg/dLsuggests DIABETES MELLITUS per A.D.A. criteria. Performed By: #### L 501.5425, L100.0100, L500.2500 ####[facility] [address] [place], [address] Potassium [Moles/Vol] 3.9 mmol/L Normal 3.5-5.1 [facility] Comment on above: Order Comment: 1Y Performed By: #### L 501.5425, L100.0100, L500.2500 ####[facility] [address] [place], [address] Sodium [Moles/Vol] 140 mmol/L Normal 136-145 [facility] Comment on above: Order Comment: 1Y Performed By: #### L 501.5425, L100.0100, L500.2500 ####[facility] [address] [place], [address] Urea nitrogen [Mass/Vol] 17 mg/dL Normal 7-18 [facility] Comment on above: Order Comment: 1Y Performed By: #### L 501.5425, L100.0100, L500.2500 ####[facility] [address] [place], [address] CBC W/Diff, Automatedon 09-2 -2023 Absolute Lymph 3.63 X10 3/uL Normal 0.83-4.51 [facility] Comment on above: Performed By: #### L 501.5425, L100.0100, L500.2500 ####[facility] [address] [place], [address] Absolute Neut 5.7 X10 3/uL Normal 2.0-7.7 [facility] Comment on above: Performed By: #### L 501.5425, L100.0100, L500.2500 ####[facility] [address] [place], [address] Basophils/100 WBC (Bld) 0.4 % Normal 0-1 [facility] Comment on above: Performed By: #### L 501.5425, L100.0100, L500.2500 ####[facility] [address] [place], [address] Eosinophils/100 WBC (Bld) 4.4 % Normal 0-5 [facility] Comment on above: Performed By: #### L 501.5425, L100.0100, L500.2500 ####[facility] [address] [place], [address] Erythrocyte distribution width (RBC) [Ratio] 13.8 % Normal 11.6-14.6 [facility] Comment on above: Performed By: #### L 501.5425, L100.0100, L500.2500 ####[facility] [address] [place], [address] Hematocrit (Bld) [Volume fraction] 39.6 % Normal 37-47 [facility] Comment on above: Performed By: #### L 501.5425, L100.0100, L500.2500 ####[facility] [address] [place], [address] Hemoglobin (Bld) [Mass/Vol] 12.7 g/dL Normal 12.0-15.0 [facility] Comment on above: Performed By: #### L 501.5425, L100.0100, L500.2500 ####[facility] [address] [place], [address] IG% 0.800 Normal 0.0-0.9 [facility] Comment on above: Result Comment: IG% - Immature Granulocytes (promyelocytes, myelocytes andmetamyelocytes) > 1% indicates that a LEFT SHIFT is Present. Performed By: #### L 501.5425, L100.0100, L500.2500 ####[facility] [address] [place], [address] Lymphocytes/100 WBC (Bld) 34.5 % Normal 19-41 [facility] Comment on above: Performed By: #### L 501.5425, L100.0100, L500.2500 ####[facility] [address] [place], [address] MCH (RBC) [Entitic mass] 28.2 pg Normal 27.0-32.0 [facility] Comment on above: Performed By: #### L 501.5425, L100.0100, L500.2500 ####[facility] [address] [place], [address] MCHC (RBC) [Mass/Vol] 32.1 g/dL Normal 32-36 [facility] Comment on above: Performed By: #### L 501.5425, L100.0100, L500.2500 ####[facility] [address] [place], [address] MCV (RBC) [Entitic vol] 88.0 fL Normal 81-99 [facility] Comment on above: Performed By: #### L 501.5425, L100.0100, L500.2500 ####[facility] [address] [place], [address] Monocytes/100 WBC (Bld) 5.5 % Normal 0-10 [facility] Comment on above: Performed By: #### L 501.5425, L100.0100, L500.2500 ####[facility] [address] [place], [address] Neutrophils/100 WBC (Bld) 54.4 % Normal 47-70 [facility] Comment on above: Performed By: #### L 501.5425, L100.0100, L500.2500 ####[facility] [address] [place], [address] Nucleated RBC (Bld) [#/Vol] 0 10*3/uL Normal 0-5 [facility] Comment on above: Performed By: #### L 501.5425, L100.0100, L500.2500 ####[facility] [address] [place], [address] Platelet mean volume (Bld) [Entitic vol] 9.2 fL Normal 6.2-12.0 [facility] Comment on above: Performed By: #### L 501.5425, L100.0100, L500.2500 ####[facility] [address] [place], [address] Platelets (Bld) [#/Vol] 258 10*3/uL Normal 150-450 [facility] Comment on above: Performed By: #### L 501.5425, L100.0100, L500.2500 ####[facility] [address] [place], [address] RBC (Bld) [#/Vol] 4.50 10*6/uL Normal 4.2-5.4 [facility] Comment on above: Performed By: #### L 501.5425, L100.0100, L500.2500 ####[facility] [address] [place], [address] RDW SD 44.3 fl High 35.1-43.9 [facility] Comment on above: Performed By: #### L 501.5425, L100.0100, L500.2500 ####[facility] [address] [place], [address] WBC (Bld) [#/Vol] 10.5 10*3/uL Normal 4.4-11.0 [facility] Comment on above: Performed By: #### L 501.5425, L100.0100, L500.2500 ####[facility] [address] [place], [address] CTA Chest W/WO Contraston CTA Chest W/WO Contrast Normal [facility] Chest 1 View (Portable)on Chest 1 View (Portable) Normal [facility] Emergency Department Summary on 12-04-2023 Emergency Department Summary Normal [facility] L501.5425on 12-04-2023 TROPONIN-I HS 5 pg/mL Normal 3.0-54.0 [facility] Comment on above: Order Comment: 1Y Result Comment: Plea se Note: New Test Units and Gender Specific Reference Ranges. For more information see Policy Stat Procedure [place] High Sensitivity Troponin (TNIH) and attachments. Performed By: #### L 501.5425, L100.0100, L500.2500 ####[facility] [address] [place], [address] TXT:Device Implant / Explant on 12-02-2023 TXT:Device Implant / Explant Normal [facility] Oncology Visit Reporton Oncology Visit Report Normal [facility] Basic Metabolic Profile (BMP )on 11-12-2023 BUN/CRE 18.6 RATIO Normal 10-20 [facility] Comment on above: Performed By: #### L 500.2500 ####[facility] [address] [place], [address] CA,Total 9.0 mg/dL Normal 8.5-10.1 [facility] Comment on above: Performed By: #### L 500.2500 ####[facility] [address] [place], [address] Chloride [Moles/Vol] 106 mmol/L Normal 98-107 [facility] Comment on above: Performed By: #### L 500.2500 ####[facility] [address] [place], [address] CO2 [Moles/Vol] 26.0 mmol/L Normal 21.0-32.0 [facility] Comment on above: Performed By: #### L 500.2500 ####[facility] [address] [place], [address] Creatinine [Mass/Vol] 1.45 mg/dL High 0.55-1.02 [facility] Comment on above: Result Comment: The validity of the calculated GFR GFRAA in patients over70 years has not been determined. Clinical correlation isessential. Performed By: #### L 500.2500 ####[facility] [address] [place], [address] EST GFR - AA 48 mL/min Low >60 [facility] Comment on above: Result Comment: Afri can Nigerian GFR Calc Performed By: #### L 500.2500 ####[facility] [address] [place], [address] GAP 4 Low 5-15 [facility] Comment on above: Performed By: #### L 500.2500 ####[facility] [address] [place], [address] GFR/1.73 sq M.predicted among non-blacks MDRD (S/P/Bld) [Vol rate/Area] 39 mL/min/{1.73_m2} Low >60 [facility] Comment on above: Result Comment: Non- GFR Calc Performed By: #### L 500.2500 ####[facility] [address] [place], [address] Glucose [Mass/Vol] 116 mg/dL High 74-106 [facility] Comment on above: Result Comment: Fast ing Glucose result from 100 to 125 mg/dLsuggests IMPAIRED HOMEOSTASIS per A.D.A. criteria. Performed By: #### L 500.2500 ####[facility] [address] [place], [address] Potassium [Moles/Vol] 5.1 mmol/L Normal 3.5-5.1 [facility] Comment on above: Performed By: #### L 500.2500 ####[facility] [address] [place], [address] Sodium [Moles/Vol] 136 mmol/L Normal 136-145 [facility] Comment on above: Performed By: #### L 500.2500 ####[facility] [address] [place], [address] Urea nitrogen [Mass/Vol] 27 mg/dL High 7-18 [facility] Comment on above: Performed By: #### L 500.2500 ####[facility] [address] [place], [address] CT Abd/Pelvis W/WO Contrasto n 11-12-2023 CT Abd/Pelvis W/WO Contrast Normal [facility] Low Dose CT Lung Screeningon 11-12-[address] Lung Screening Normal [facility] Oncology Visit Reporton Oncology Visit Report Normal [facility] SCRN MAMM (CAD)W/LUCY BILATo n 11-12-2023 SCRN MAMM (CAD)W/LUCY BILAT Normal [facility] PT D/C Summary (1)on 024 PT D/C Summary (1) Normal [facility] Bilirubin, Directon 11-04-19 24 Bilirubin.direct [Mass/Vol] 0.05 mg/dL Normal 0.00-0.30 [facility] Comment on above: Performed By: #### L 501.4700, L500.4100, L100.0100, L500.4050 ####[facility] [address] [place], [address] CBC W/Diff, Automatedon 10-10 Absolute Lymph 4.24 X10 3/uL Normal 0.83-4.51 [facility] Comment on above: Performed By: #### L 501.4700, L500.4100, L100.0100, L500.4050 ####[facility] [address] [place], [address] Absolute Neut 7.6 X10 3/uL Normal 2.0-7.7 [facility] Comment on above: Performed By: #### L 501.4700, L500.4100, L100.0100, L500.4050 ####[facility] [address] [place], [address] Basophils/100 WBC (Bld) 0.5 % Normal 0-1 [facility] Comment on above: Performed By: #### L 501.4700, L500.4100, L100.0100, L500.4050 ####[facility] [address] [place], [address] Eosinophils/100 WBC (Bld) 1.9 % Normal 0-5 [facility] Comment on above: Performed By: #### L 501.4700, L500.4100, L100.0100, L500.4050 ####[facility] [address] [place], [address] Erythrocyte distribution width (RBC) [Ratio] 13.9 % Normal 11.6-14.6 [facility] Comment on above: Performed By: #### L 501.4700, L500.4100, L100.0100, L500.4050 ####[facility] [address] [place], [address] Hematocrit (Bld) [Volume fraction] 43.0 % Normal 37-47 [facility] Comment on above: Performed By: #### L 501.4700, L500.4100, L100.0100, L500.4050 ####[facility] [address] [place], [address] Hemoglobin (Bld) [Mass/Vol] 14.0 g/dL Normal 12.0-15.0 [facility] Comment on above: Performed By: #### L 501.4700, L500.4100, L100.0100, L500.4050 ####[facility] [address] [place], [address] IG% 0.500 Normal 0.0-0.9 [facility] Comment on above: Result Comment: IG% - Immature Granulocytes (promyelocytes, myelocytes andmetamyelocytes) > 1% indicates that a LEFT SHIFT is Present. Performed By: #### L 501.4700, L500.4100, L100.0100, L500.4050 ####[facility] [address] [place], [address] Lymphocytes/100 WBC (Bld) 32.3 % Normal 19-41 [facility] Comment on above: Performed By: #### L 501.4700, L500.4100, L100.0100, L500.4050 ####[facility] [address] [place], [address] MCH (RBC) [Entitic mass] 29.2 pg Normal 27.0-32.0 [facility] Comment on above: Performed By: #### L 501.4700, L500.4100, L100.0100, L500.4050 ####[facility] [address] [place], [address] MCHC (RBC) [Mass/Vol] 32.6 g/dL Normal 32-36 [facility] Comment on above: Performed By: #### L 501.4700, L500.4100, L100.0100, L500.4050 ####[facility] [address] [place], [address] MCV (RBC) [Entitic vol] 89.6 fL Normal 81-99 [facility] Comment on above: Performed By: #### L 501.4700, L500.4100, L100.0100, L500.4050 ####[facility] [address] [place], [address] Monocytes/100 WBC (Bld) 7.3 % Normal 0-10 [facility] Comment on above: Performed By: #### L 501.4700, L500.4100, L100.0100, L500.4050 ####[facility] [address] [place], [address] Neutrophils/100 WBC (Bld) 57.5 % Normal 47-70 [facility] Comment on above: Performed By: #### L 501.4700, L500.4100, L100.0100, L500.4050 ####[facility] [address] [place], [address] Nucleated RBC (Bld) [#/Vol] 0 10*3/uL Normal 0-5 [facility] Comment on above: Performed By: #### L 501.4700, L500.4100, L100.0100, L500.4050 ####[facility] [address] [place], [address] Platelet mean volume (Bld) [Entitic vol] 9.4 fL Normal 6.2-12.0 [facility] Comment on above: Performed By: #### L 501.4700, L500.4100, L100.0100, L500.4050 ####[facility] [address] [place], [address] Platelets (Bld) [#/Vol] 239 10*3/uL Normal 150-450 [facility] Comment on above: Performed By: #### L 501.4700, L500.4100, L100.0100, L500.4050 ####[facility] [address] [place], [address] RBC (Bld) [#/Vol] 4.80 10*6/uL Normal 4.2-5.4 [facility] Comment on above: Performed By: #### L 501.4700, L500.4100, L100.0100, L500.4050 ####[facility] [address] [place], [address] RDW SD 45.4 fl High 35.1-43.9 [facility] Comment on above: Performed By: #### L 501.4700, L500.4100, L100.0100, L500.4050 ####[facility] [address] [place], [address] WBC (Bld) [#/Vol] 13.1 10*3/uL High 4.4-11.0 [facility] Comment on above: Performed By: #### L 501.4700, L500.4100, L100.0100, L500.4050 ####[facility] [address] [place], [address] Comprehensive Metabolic Prof ilon 11-04-2023 Albumin [Mass/Vol] 3.8 g/dL Normal 3.2-5.0 [facility] Comment on above: Performed By: #### L 501.4700, L500.4100, L100.0100, L500.4050 ####[facility] [address] [place], [address] Albumin/Globulin [Mass ratio] 1.0 {ratio} Normal 0.9-2.4 [facility] Comment on above: Performed By: #### L 501.4700, L500.4100, L100.0100, L500.4050 ####[facility] [address] [place], [address] ALK P 75 U/L Normal 45-117 [facility] Comment on above: Performed By: #### L 501.4700, L500.4100, L100.0100, L500.4050 ####[facility] [address] [place], [address] ALT [Catalytic activity/Vol] 26 U/L Normal 13-56 [facility] Comment on above: Performed By: #### L 501.4700, L500.4100, L100.0100, L500.4050 ####[facility] [address] [place], [address] AST [Catalytic activity/Vol] 18 U/L Normal 15-37 [facility] Comment on above: Performed By: #### L 501.4700, L500.4100, L100.0100, L500.4050 ####[facility] [address] [place], [address] Bilirubin [Mass/Vol] 0.40 mg/dL Normal 0.20-1.00 [facility] Comment on above: Result Comment: For patients on eltrombopag therapy, use of Dimension [place] TBIL is not recommended. Performed By: #### L 501.4700, L500.4100, L100.0100, L500.4050 ####[facility] [address] [place], [address] BUN/CRE 19.5 RATIO Normal 10-20 [facility] Comment on above: Performed By: #### L 501.4700, L500.4100, L100.0100, L500.4050 ####[facility] [address] [place], [address] CA,Total 9.4 mg/dL Normal 8.5-10.1 [facility] Comment on above: Performed By: #### L 501.4700, L500.4100, L100.0100, L500.4050 ####[facility] [address] [place], [address] Chloride [Moles/Vol] 109 mmol/L High 98-107 [facility] Comment on above: Performed By: #### L 501.4700, L500.4100, L100.0100, L500.4050 ####[facility] [address] [place], [address] CO2 [Moles/Vol] 21.0 mmol/L Normal 21.0-32.0 [facility] Comment on above: Performed By: #### L 501.4700, L500.4100, L100.0100, L500.4050 ####[facility] [address] [place], [address] Creatinine [Mass/Vol] 1.64 mg/dL High 0.55-1.02 [facility] Comment on above: Result Comment: The validity of the calculated GFR GFRAA in patients over70 years has not been determined. Clinical correlation isessential. Performed By: #### L 501.4700, L500.4100, L100.0100, L500.4050 ####[facility] [address] [place], [address] EST GFR - AA 41 mL/min Low >60 [facility] Comment on above: Result Comment: Afri can Nigerian GFR Calc Performed By: #### L 501.4700, L500.4100, L100.0100, L500.4050 ####[facility] [address] [place], [address] GAP 8 Normal 5-15 [facility] Comment on above: Performed By: #### L 501.4700, L500.4100, L100.0100, L500.4050 ####[facility] [address] [place], [address] GFR/1.73 sq M.predicted among non-blacks MDRD (S/P/Bld) [Vol rate/Area] 34 mL/min/{1.73_m2} Low >60 [facility] Comment on above: Result Comment: Non- GFR Calc Performed By: #### L 501.4700, L500.4100, L100.0100, L500.4050 ####[facility] [address] [place], [address] Globulin (S) [Mass/Vol] 4.0 g/dL Normal 2.2-4.2 [facility] Comment on above: Performed By: #### L 501.4700, L500.4100, L100.0100, L500.4050 ####[facility] [address] [place], [address] Glucose [Mass/Vol] 109 mg/dL High 74-106 [facility] Comment on above: Result Comment: Fast ing Glucose result from 100 to 125 mg/dLsuggests IMPAIRED HOMEOSTASIS per A.D.A. criteria. Performed By: #### L 501.4700, L500.4100, L100.0100, L500.4050 ####[facility] [address] [place], [address] Potassium [Moles/Vol] 5.5 mmol/L High 3.5-5.1 [facility] Comment on above: Performed By: #### L 501.4700, L500.4100, L100.0100, L500.4050 ####[facility] [address] [place], [address] Sodium [Moles/Vol] 138 mmol/L Normal 136-145 [facility] Comment on above: Performed By: #### L 501.4700, L500.4100, L100.0100, L500.4050 ####[facility] [address] [place], [address] T PROT 7.8 g/dL Normal 6.4-8.2 [facility] Comment on above: Performed By: #### L 501.4700, L500.4100, L100.0100, L500.4050 ####[facility] [address] [place], [address] Urea nitrogen [Mass/Vol] 32 mg/dL High 7-18 [facility] Comment on above: Performed By: #### L 501.4700, L500.4100, L100.0100, L500.4050 ####[facility] [address] [place], [address] Internal Medicine Office Vis iton 11-04-2023 Internal Medicine Office Visit Normal [facility] Lipid Profileon 11-04-2023 Cholesterol [Mass/Vol] 175 mg/dL Normal 200 [facility] Comment on above: Result Comment: <200 mg/dL Desirable 200-240 mg/dL Borderline >240 mg/dL High Risk Performed By: #### L 501.4700, L500.4100, L100.0100, L500.4050 ####[facility] [address] [place], [address] Cholesterol in HDL [Mass/Vol] 39 mg/dL Low [facility] Comment on above: Result Comment: The drugs N-Acetylcysteine and Metamizole may falselydepress this assay. Reference Range HDL <40 mg/dL Low HDL Cholesterol HDL >or= 60 mg/dL High HDL Cholesterol Performed By: #### L 501.4700, L500.4100, L100.0100, L500.4050 ####[facility] [address] [place], [address] Cholesterol in LDL [Mass/Vol] 99 mg/dL Normal 0-130 [facility] Comment on above: Performed By: #### L 501.4700, L500.4100, L100.0100, L500.4050 ####[facility] [address] [place], [address] Cholesterol in VLDL [Mass/Vol] 37 mg/dL Normal 5-40 [facility] Comment on above: Performed By: #### L 501.4700, L500.4100, L100.0100, L500.4050 ####[facility] [address] [place], [address] Triglyceride [Mass/Vol] 185 mg/dL Normal [facility] Comment on above: Result Comment: The drugs N-Acetylcysteine and Metamizole may falselydepress this assay.Serum Triglycerides Reference Interval Normal <150 mg/dL Borderline high 150 - 199 mg/dL High 200 - 499 mg/dL Very High > or = 500 mg/dL Performed By: #### L 501.4700, L500.4100, L100.0100, L500.4050 ####[facility] [address] [place], [address] Liver Profileon 11-04-2023 ALB Normal 3.2-5.0 [facility] Comment on above: Result Comment: DUPL ICATE Performed By: #### L 500.3400 ####[facility] [address] [place], [address] ALK P Normal 45-117 [facility] Comment on above: Result Comment: DUPL ICATE Performed By: #### L 500.3400 ####[facility] [address] [place], [address] ALT Normal 13-56 [facility] Comment on above: Result Comment: DUPL ICATE Performed By: #### L 500.3400 ####[facility] [address] [place], [address] AST Normal 15-37 [facility] Comment on above: Result Comment: DUPL ICATE Performed By: #### L 500.3400 ####[facility] [address] [place], [address] D BILI Normal 0.00-0.30 [facility] Comment on above: Result Comment: DUPL ICATE Performed By: #### L 500.3400 ####[facility] [address] [place], [address] T BILI Normal 0.20-1.00 [facility] Comment on above: Result Comment: DUPL ICATE Performed By: #### L 500.3400 ####[facility] [address] [place], [address] T PROT Normal 6.4-8.2 [facility] Comment on above: Result Comment: DUPL ICATE Performed By: #### L 500.3400 ####[facility] [address] [place], [address] Ankle min 3 Viewson 10-25-19 24 Ankle min 3 Views Normal [facility] Orthopedic Visit Reporton Orthopedic Visit Report Normal [facility] Absolute lymphocyte countOrd ered By: Panda Rowe on 07-12-2023 Lymphocytes Auto (Unsp spec) [#/Vol] 4.63 10*3/uL 0.83-4.51 [facility] Automated lymphocyte count a s percentage of total leukocytesOrdered By: Panda Rowe on 07-12-2023 Lymphocytes/100 WBC Auto (Unsp spec) 41.9 % 19-41 [facility] Basophil percentageOrdered B y: Panda Rowe on 07-12-2023 Basophils/100 WBC (Bld) 0.5 % 0-1 [facility] Chloride [Moles/Vol] 105 mmol/L 98-107 [facility] Eosinophils/100 WBC (Bld) 2.6 % 0-5 [facility] Glucose [Mass/Vol] 118 mg/dL 74-106 [facility] Comment on above: Fasting Glucose resu lt from 100 to 125 mg/dL suggests IMPAIRED HOMEOSTASIS per A.D.A. criteria. Hemoglobin (Bld) [Mass/Vol] 11.9 g/dL 12.0-15.0 [facility] Monocytes/100 WBC (Bld) 6.3 % 0-10 [facility] Neutrophils (Bld) [#/Vol] 5.3 10*3/uL 2.0-7.7 [facility] Neutrophils/100 WBC (Bld) 48.2 % 47-70 [facility] Potassium [Moles/Vol] 3.6 mmol/L 3.5-5.1 [facility] Sodium [Moles/Vol] 139 mmol/L 136-145 [facility] WBC (Bld) [#/Vol] 11.1 10*3/uL 4.4-11.0 [facility] Determination of erythrocyte mean corpuscular volume (MCV)Ordered By: Panda Rowe on 07-12-2023 MCV (RBC) [Entitic vol] 88.0 fL 81-99 [facility] Erythrocyte distribution wid th ratioOrdered By: Panda Rowe on 07-12-2023 Erythrocyte distribution width (RBC) [Ratio] 14.3 % 11.6-14.6 [facility] Erythrocyte distribution wid th standard deviationOrdered By: Panda Rowe on 07-12-2023 Erythrocyte distribution width (RBC) [Entitic vol] 46.2 fL 35.1-43.9 [facility] Hematocrit Auto (Bld) [Volum e fraction]Ordered By: Panda Rowe on 07-12-2023 Hematocrit (Bld) [Volume fraction] 36.6 % 37-47 [facility] Immature granulocytes/100 WB C Auto (Bld)Ordered By: Panda Rowe on 07-12-2023 Immature granulocytes/100 WBC (Bld) 0.500 % 0.0-0.9 [facility] Comment on above: IG% - Immature Granu locytes (promyelocytes, myelocytes and metamyelocytes) > 1% indicates that a LEFT SHIFT is Present. Laboratory - Chemistry and C hemistry - challengeOrdered By: Panda Rowe on 07-12-2023 CO2 [Moles/Vol] 30.0 mmol/L 21.0-32.0 [facility] Urea nitrogen/Creatinine [Mass ratio] 15.6 mg/mg 10-20 [facility] Laboratory - Hematology and Cell countsOrdered By: Panda Rowe on 07-12-2023 MCH (RBC) [Entitic mass] 28.6 pg 27.0-32.0 [facility] MCHC (RBC) [Mass/Vol] 32.5 g/dL 32-36 [facility] Nucleated RBC/100 WBC (Bld) [Ratio] 0 % 0-5 [facility] Platelet mean volume (Bld) [Entitic vol] 9.5 fL 6.2-12.0 [facility] Platelets (Bld) [#/Vol] 204 10*3/uL 150-450 [facility] No Panel InformationOrdered By: Panda Rowe on 07-12-2023 Estimated Creatinine Clearance Calc 60.03 ml/min [facility] Estimated GFR (MDRD) Amer 66 mL/min >60 [facility] Comment on above: GFR Calc Estimated GFR (MDRD) Non-Af Amer 55 mL/min >60 [facility] Comment on above: Non- GFR Calc Troponin I High Sensitivity 5 pg/mL 3.0-54.0 [facility] Comment on above: Please Note: New [place] Units and Gender Specific Reference Ranges. For more information see Policy Stat Procedure [place] High Sensitivity Troponin (TNIH) and attachments. RBC Auto (Bld) [#/Vol]Ordere d By: Panda Rowe on 07-12-2023 RBC (Bld) [#/Vol] 4.16 10*6/uL 4.2-5.4 [facility] Serum or plasma calcium heather urement (mass/volume)Ordered By: Panda Rowe on 07-12-2023 Calcium [Mass/Vol] 8.6 mg/dL 8.5-10.1 [facility] Serum or plasma creatinine m easurement (mass/volume)Ordered By: Panda Rowe on 07-12-2023 Creatinine [Mass/Vol] 1.09 mg/dL 0.55-1.02 [facility] Comment on above: The validity of the calculated GFR & GFRAA in patients over 70 years has not been determined. Clinical correlation is essential. Serum or plasma urea nitroge n measurement (mass/volume)Ordered By: Panda Rowe on 07-12-2023 Urea nitrogen [Mass/Vol] 17 mg/dL 7-18 [facility] Thin prep Papanicolaou smear with manual screeningOrdered By: Panda Rowe on 07-12-2023 Thin prep Papanicolaou smear with manual screening 4 5-15 [facility] Absolute lymphocyte countOrd ered By: Charla Wadsworth on 01-30-2023 Lymphocytes Auto (Unsp spec) [#/Vol] 3.06 10*3/uL 0.83-4.51 [facility] Basophil percentageOrdered B y: Charla Wadsworth on 01-30-2023 Basophils/100 WBC (Bld) 0.4 % 0-1 [facility] Bilirubin [Mass/Vol] 0.40 mg/dL 0.20-1.00 [facility] Comment on above: For patients on eltr ombopag therapy, use of Dimension [place] TBIL is not recommended. Chloride [Moles/Vol] 104 mmol/L 98-107 [facility] Eosinophils/100 WBC (Bld) 0.8 % 0-5 [facility] Glucose [Mass/Vol] 117 mg/dL 74-106 [facility] Comment on above: Fasting Glucose resu lt from 100 to 125 mg/dL suggests IMPAIRED HOMEOSTASIS per A.D.A. criteria. Neutrophils (Bld) [#/Vol] 9.7 10*3/uL 2.0-7.7 [facility] Neutrophils/100 WBC (Bld) 71.2 % 47-70 [facility] Potassium [Moles/Vol] 3.0 mmol/L 3.5-5.1 [facility] Protein [Mass/Vol] 8.2 g/dL 6.4-8.2 [facility] Sodium [Moles/Vol] 142 mmol/L 136-145 [facility] WBC (Bld) [#/Vol] 13.7 10*3/uL 4.4-11.0 [facility] Blood erythrocytes count (nu mber/volume)Ordered By: Charla Wadsworth on 01-30-2023 RBC (Bld) [#/Vol] 4.94 10*6/uL 4.2-5.4 [facility] Blood hemoglobin measurement (mass/volume)Ordered By: Charla Wadsworth on 01-30-2023 Hemoglobin (Bld) [Mass/Vol] 13.7 g/dL 12.0-15.0 [facility] Blood lymphocytes/100 leukoc ytesOrdered By: Charla Wadsworth on 01-30-2023 Lymphocytes/100 WBC (Bld) 22.4 % 19-41 [facility] Blood monocytes/100 leukocyt esOrdered By: Charla Wadsworth on 01-30-2023 Monocytes/100 WBC (Bld) 4.6 % 0-10 [facility] Blood platelet mean volumeOr dered By: Charla Wadsworth on 01-30-2023 Platelet mean volume (Bld) [Entitic vol] 9.6 fL 6.2-12.0 [facility] Determination of erythrocyte mean corpuscular volume (MCV)Ordered By: Charla Wadsworth on 01-30-2023 MCV (RBC) [Entitic vol] 86.2 fL 81-99 [facility] Hematocrit Auto (Bld) [Volum e fraction]Ordered By: Charla Wadsworth on 01-30-2023 Hematocrit (Bld) [Volume fraction] 42.6 % 37-47 [facility] Laboratory - Chemistry and C hemistry - challengeOrdered By: Charla Wadsworth on 01-30-2023 ALP [Catalytic activity/Vol] 122 U/L 45-117 [facility] ALT [Catalytic activity/Vol] 20 U/L 13-56 [facility] CO2 [Moles/Vol] 30.0 mmol/L 21.0-32.0 [facility] Globulin (S) [Mass/Vol] 4.8 g/dL 2.2-4.2 [facility] Urea nitrogen/Creatinine [Mass ratio] 9.9 mg/mg 10-20 [facility] Laboratory - Hematology and Cell countsOrdered By: Charla Wadsworth on 01-30-2023 Erythrocyte distribution width (RBC) [Entitic vol] 44.7 fL 35.1-43.9 [facility] Erythrocyte distribution width (RBC) [Ratio] 14.2 % 11.6-14.6 [facility] Immature granulocytes/100 WBC (Bld) 0.600 % 0.0-0.9 [facility] Comment on above: IG% - Immature Granu locytes (promyelocytes, myelocytes and metamyelocytes) > 1% indicates that a LEFT SHIFT is Present. MCH (RBC) [Entitic mass] 27.7 pg 27.0-32.0 [facility] Nucleated RBC/100 WBC (Bld) [Ratio] 0 % 0-5 [facility] MCHC Auto (RBC) [Mass/Vol]Or dered By: Charla Wadsworth on 01-30-2023 MCHC (RBC) [Mass/Vol] 32.2 g/dL 32-36 [facility] No Panel InformationOrdered By: Charla Wadsworth on 01-30-2023 Estimated GFR (MDRD) Amer 73 mL/min >60 [facility] Comment on above: GFR Calc Estimated GFR (MDRD) Non-Af Amer 60 mL/min >60 [facility] Comment on above: Non- GFR Calc Thyroid Stimulating Hormone (TSH) 1.23 uIU/mL 0.358-3.74 [facility] Platelets bldOrdered By: Ozzy Wadsworth on 01-30-2023 Platelets (Bld) [#/Vol] 346 10*3/uL 150-450 [facility] Serum or plasma albumin heather urement (mass/volume)Ordered By: Charla Jeffnataliasusanne on 01-30-2023 Albumin [Mass/Vol] 3.4 g/dL 3.2-5.0 [facility] Serum or plasma albumin/glob ulin mass ratioOrdered By: Lethaaylamatt Jeffnataliasusanne on 01-30-2023 Albumin/Globulin [Mass ratio] 0.7 {ratio} 0.9-2.4 [facility] Serum or plasma calcium heather urement (mass/volume)Ordered By: Charla Jeffnataliasusanne on 01-30-2023 Calcium [Mass/Vol] 9.2 mg/dL 8.5-10.1 [facility] Serum or plasma creatinine m easurement (mass/volume)Ordered By: Charla Jeffnataliasusanne on 01-30-2023 Creatinine [Mass/Vol] 1.01 mg/dL 0.55-1.02 [facility] Comment on above: The validity of the calculated GFR & GFRAA in patients over 70 years has not been determined. Clinical correlation is essential. Serum or plasma urea nitroge n measurement (mass/volume)Ordered By: Stefaniejoselyn Aguilarnataliasusanne on 01-30-2023 Urea nitrogen [Mass/Vol] 10 mg/dL 7-18 [facility] Thin prep Papanicolaou smear with manual screeningOrdered By: Lethaaylaurmilajoselyn Wadsworth on 01-30-2023 Thin prep Papanicolaou smear with manual screening 20 U/L 15-37 [facility] Thin prep Papanicolaou smear with manual screening 8 5-15 [facility] Absolute lymphocyte countOrd ered By: Keon Ramirez on 12-03-2022 Lymphocytes Auto (Unsp spec) [#/Vol] 3.65 10*3/uL 0.83-4.51 [facility] Basophil percentageOrdered B y: Keon Ramirez on 12-03-2022 Basophils/100 WBC (Bld) 0.3 % 0-1 [facility] Chloride [Moles/Vol] 103 mmol/L 98-107 [facility] Eosinophils/100 WBC (Bld) 1.5 % 0-5 [facility] Glucose [Mass/Vol] 89 mg/dL 74-106 [facility] Neutrophils (Bld) [#/Vol] 8.4 10*3/uL 2.0-7.7 [facility] Neutrophils/100 WBC (Bld) 64.1 % 47-70 [facility] Potassium [Moles/Vol] 4.3 mmol/L 3.5-5.1 [facility] Sodium [Moles/Vol] 137 mmol/L 136-145 [facility] WBC (Bld) [#/Vol] 13.0 10*3/uL 4.4-11.0 [facility] Blood erythrocytes count (nu mber/volume)Ordered By: Keon Ramirez on 12-03-2022 RBC (Bld) [#/Vol] 4.75 10*6/uL 4.2-5.4 [facility] Blood hemoglobin measurement (mass/volume)Ordered By: Keon Ramirez on 12-03-2022 Hemoglobin (Bld) [Mass/Vol] 13.7 g/dL 12.0-15.0 [facility] Blood lymphocytes/100 leukoc ytesOrdered By: Keon Ramirez on 12-03-2022 Lymphocytes/100 WBC (Bld) 28.0 % 19-41 [facility] Blood monocytes/100 leukocyt esOrdered By: Keon Ramirez on 12-03-2022 Monocytes/100 WBC (Bld) 5.7 % 0-10 [facility] Blood platelet mean volumeOr dered By: Keon Ramirez on 12-03-2022 Platelet mean volume (Bld) [Entitic vol] 9.5 fL 6.2-12.0 [facility] Determination of erythrocyte mean corpuscular volume (MCV)Ordered By: Keon Ramirez on 12-03-2022 MCV (RBC) [Entitic vol] 87.2 fL 81-99 [facility] Hematocrit Auto (Bld) [Volum e fraction]Ordered By: Keon Ramirez on 12-03-2022 Hematocrit (Bld) [Volume fraction] 41.4 % 37-47 [facility] Laboratory - Chemistry and C hemistry - challengeOrdered By: Keon Ramirez on 12-03-2022 CO2 [Moles/Vol] 28.0 mmol/L 21.0-32.0 [facility] Urea nitrogen/Creatinine [Mass ratio] 12.3 mg/mg 10-20 [facility] Laboratory - Hematology and Cell countsOrdered By: Keon Ramirez on 12-03-2022 Erythrocyte distribution width (RBC) [Entitic vol] 44.3 fL 35.1-43.9 [facility] Erythrocyte distribution width (RBC) [Ratio] 13.7 % 11.6-14.6 [facility] Immature granulocytes/100 WBC (Bld) 0.400 % 0.0-0.9 [facility] Comment on above: IG% - Immature Granu locytes (promyelocytes, myelocytes and metamyelocytes) > 1% indicates that a LEFT SHIFT is Present. MCH (RBC) [Entitic mass] 28.8 pg 27.0-32.0 [facility] Nucleated RBC/100 WBC (Bld) [Ratio] 0 % 0-5 [facility] MCHC Auto (RBC) [Mass/Vol]Or dered By: Keon Ramirez on 12-03-2022 MCHC (RBC) [Mass/Vol] 33.1 g/dL 32-36 [facility] No Panel InformationOrdered By: Keon Ramirez on 12-03-2022 D-Dimer Quantitative (PE/DVT) 0.79 FEU/ug/m 0.27-0.49 [facility] Comment on above: CRITICAL VALUE VERIF IED. CALLED TO BETHANY ETIENNE RN [id number] Josefina Villalobos.RESULTS READ BACK BY SAME . D-Dimer ELEVATED (>0.49): Additional studies and clinicalassessments are indicated to conclude diagnosis of:Deep Vein Thrombosis (DVT) or Pulmonary Embolism (PE) Troponin I High Sensitivity 4 pg/mL 3.0-54.0 [facility] Comment on above: Please Note: New [place] t Units and Gender Specific Reference Ranges. For more information see Policy Stat Procedure [place] High Sensitivity Troponin (TNIH) and attachments. Estimated Creatinine Clearance Calc 40.24 ml/min [facility] Estimated GFR (MDRD) Amer 58 mL/min >60 [facility] Comment on above: GFR Calc Estimated GFR (MDRD) Non-Af Amer 48 mL/min >60 [facility] Comment on above: Non- GFR Calc Platelets bldOrdered By: Carolyn Ramirez on 12-03-2022 Platelets (Bld) [#/Vol] 354 10*3/uL 150-450 [facility] Serum or plasma calcium heather urement (mass/volume)Ordered By: Keon Ramirez on 12-03-2022 Calcium [Mass/Vol] 9.3 mg/dL 8.5-10.1 [facility] Serum or plasma creatinine m easurement (mass/volume)Ordered By: Keon Ramirez on 12-03-2022 Creatinine [Mass/Vol] 1.22 mg/dL 0.55-1.02 [facility] Comment on above: The validity of the calculated GFR & GFRAA in patients over 70 years has not been determined. Clinical correlation is essential. Serum or plasma urea nitroge n measurement (mass/volume)Ordered By: Keon Ramirez on 12-03-2022 Urea nitrogen [Mass/Vol] 15 mg/dL 7-18 [facility] Thin prep Papanicolaou smear with manual screeningOrdered By: Keon Ramirez on 12-03-2022 Thin prep Papanicolaou smear with manual screening 6 5-15 [facility] Absolute lymphocyte countOrd ered By: Dr. Wadsworth on 05-16-2022 Lymphocytes Auto (Unsp spec) [#/Vol] 3.61 10*3/uL 0.83-4.51 [facility] Basophil percentageOrdered B y: Dr. Wadsworth on 05-16-2022 Basophils/100 WBC (Bld) 0.3 % 0-1 [facility] Bilirubin [Mass/Vol] 0.30 mg/dL 0.20-1.00 [facility] Comment on above: For patients on eltr ombopag therapy, use of Dimension [place] TBIL is not recommended. Chloride [Moles/Vol] 106 mmol/L 98-107 [facility] Cholesterol [Mass/Vol] 156 mg/dL <200 [facility] Comment on above: <200 mg/dL Desirable 200-240 mg/dL Borderline >240 mg/dL High Risk Eosinophils/100 WBC (Bld) 1.2 % 0-5 [facility] Glucose [Mass/Vol] 134 mg/dL 74-106 [facility] Comment on above: Fasting Glucose resu lt greater than or equal to 126 mg/dL suggests DIABETES MELLITUS per A.D.A. criteria. Neutrophils (Bld) [#/Vol] 10.4 10*3/uL 2.0-7.7 [facility] Neutrophils/100 WBC (Bld) 68.1 % 47-70 [facility] Potassium [Moles/Vol] 5.0 mmol/L 3.5-5.1 [facility] Protein [Mass/Vol] 7.9 g/dL 6.4-8.2 [facility] Sodium [Moles/Vol] 138 mmol/L 136-145 [facility] Triglyceride [Mass/Vol] 193 mg/dL <199 [facility] Comment on above: The drugs N-Acetylcy steine and Metamizole may falsely depress this assay.Serum Triglycerides Reference Interval Normal <150 mg/dL Borderline high 150 - 199 mg/dL High 200 - 499 mg/dL Very High > or = 500 mg/dL WBC (Bld) [#/Vol] 15.2 10*3/uL 4.4-11.0 [facility] Blood erythrocytes count (nu mber/volume)Ordered By: Dr. Wadsworth on 05-16-2022 RBC (Bld) [#/Vol] 5.19 10*6/uL 4.2-5.4 [facility] Blood hemoglobin measurement (mass/volume)Ordered By: Dr. Wadsworth on 05-16-2022 Hemoglobin (Bld) [Mass/Vol] 14.5 g/dL 12.0-15.0 [facility] Blood lymphocytes/100 leukoc ytesOrdered By: Dr. Wadsworth on 05-16-2022 Lymphocytes/100 WBC (Bld) 23.7 % 19-41 [facility] Blood monocytes/100 leukocyt esOrdered By: Dr. Wadsworth on 05-16-2022 Monocytes/100 WBC (Bld) 6.2 % 0-10 [facility] Blood platelet mean volumeOr dered By: Dr. Wadsworth on 05-16-2022 Platelet mean volume (Bld) [Entitic vol] 9.6 fL 6.2-12.0 [facility] Determination of erythrocyte mean corpuscular volume (MCV)Ordered By: Dr. Wadsworth on 05-16-2022 MCV (RBC) [Entitic vol] 88.4 fL 81-99 [facility] Direct bilirubinOrdered By: Dr. Wadsworth on 05-16-2022 Bilirubin.direct [Mass/Vol] 0.09 mg/dL 0.00-0.30 [facility] Hematocrit Auto (Bld) [Volum e fraction]Ordered By: Dr. Wadsworth on 05-16-2022 Hematocrit (Bld) [Volume fraction] 45.9 % 37-47 [facility] Laboratory - Chemistry and C hemistry - challengeOrdered By: Dr. Wadsworth on 05-16-2022 ALP [Catalytic activity/Vol] 121 U/L 45-117 [facility] ALT [Catalytic activity/Vol] 16 U/L 13-56 [facility] CO2 [Moles/Vol] 29.0 mmol/L 21.0-32.0 [facility] Globulin (S) [Mass/Vol] 4.6 g/dL 2.2-4.2 [facility] Urea nitrogen/Creatinine [Mass ratio] 11.6 mg/mg 10-20 [facility] Laboratory - Hematology and Cell countsOrdered By: Dr. Wadsworth on 05-16-2022 Erythrocyte distribution width (RBC) [Entitic vol] 52.3 fL 35.1-43.9 [facility] Erythrocyte distribution width (RBC) [Ratio] 16.2 % 11.6-14.6 [facility] Immature granulocytes/100 WBC (Bld) 0.500 % 0.0-0.9 [facility] Comment on above: IG% - Immature Granu locytes (promyelocytes, myelocytes and metamyelocytes) > 1% indicates that a LEFT SHIFT is Present. MCH (RBC) [Entitic mass] 27.9 pg 27.0-32.0 [facility] Nucleated RBC/100 WBC (Bld) [Ratio] 0 % 0-5 [facility] MCHC Auto (RBC) [Mass/Vol]Or dered By: Dr. Wadsworth on 03-08-2023 MCHC (RBC) [Mass/Vol] 31.6 g/dL 32-36 [facility] No Panel InformationOrdered By: Dr. Wadsworth on 05-16-2022 Estimated GFR (MDRD) Amer 59 mL/min >60 [facility] Comment on above: GFR Calc Estimated GFR (MDRD) Non-Af Amer 49 mL/min >60 [facility] Comment on above: Non- GFR Calc Platelets bldOrdered By: Dr. Wadsworth on 05-16-2022 Platelets (Bld) [#/Vol] 329 10*3/uL 150-450 [facility] Serum or plasma albumin heather urement (mass/volume)Ordered By: Dr. Wadsworth on 05-16-2022 Albumin [Mass/Vol] 3.3 g/dL 3.2-5.0 [facility] Serum or plasma albumin/glob ulin mass ratioOrdered By: Dr. Wadsworth on 05-16-2022 Albumin/Globulin [Mass ratio] 0.7 {ratio} 0.9-2.4 [facility] Serum or plasma calcium heather urement (mass/volume)Ordered By: Dr. Wadsworth on 05-16-2022 Calcium [Mass/Vol] 9.7 mg/dL 8.5-10.1 [facility] Serum or plasma cholesterol in HDL measurement (mass/volume)Ordered By: Dr. Wadsworth on 05-16-2022 Cholesterol in HDL [Mass/Vol] 30 mg/dL >40 [facility] Comment on above: The drugs N-Acetylcy steine and Metamizole may falsely depress this assay. Reference Range HDL <40 mg/dL Low HDL Cholesterol HDL >or= 60 mg/dL High HDL Cholesterol Serum or plasma cholesterol in VLDL measurement (mass/volume)Ordered By: Dr. Wadsworth on 05-16-2022 Cholesterol in VLDL [Mass/Vol] 39 mg/dL 5-40 [facility] Serum or plasma creatinine m easurement (mass/volume)Ordered By: Dr. Wadsworth on 05-16-2022 Creatinine [Mass/Vol] 1.21 mg/dL 0.55-1.02 [facility] Comment on above: The validity of the calculated GFR & GFRAA in patients over 70 years has not been determined. Clinical correlation is essential. Serum or plasma low density lipoprotein (LDL) cholesterol measurement (mass/volume)Ordered By: Dr. Wadsworth on 05-16-2022 Cholesterol in LDL [Mass/Vol] 87 mg/dL 0-130 [facility] Serum or plasma urea nitroge n measurement (mass/volume)Ordered By: Dr. Wadsworth on 05-16-2022 Urea nitrogen [Mass/Vol] 14 mg/dL 7-18 [facility] Thin prep Papanicolaou smear with manual screeningOrdered By: Dr. Wadsworth on 05-16-2022 Thin prep Papanicolaou smear with manual screening 13 U/L 15-37 [facility] Thin prep Papanicolaou smear with manual screening 3 5-15 [facility] Absolute lymphocyte counton 10-24-2021 Lymphocytes Auto (Unsp spec) [#/Vol] 2.19 10*3/uL 0.83-4.51 [facility] Work Phone: Basophil percentageon 2021 Basophil percentage < 10.0 umol/L 11-32 [facility] Work Phone: Basophil percentage 3.1 mg/dL 2.5-4.9 [facility] Work Phone: Basophils/100 WBC (Bld) 0.3 % 0-1 [facility] Work Phone: Bilirubin [Mass/Vol] 0.50 mg/dL 0.20-1.00 [facility] Work Phone: Comment on above: For patients on eltr ombopag therapy, use of Dimension [place] TBIL is not recommended. Chloride [Moles/Vol] 109 mmol/L 98-107 [facility] Work Phone: Eosinophils/100 WBC (Bld) 0.5 % 0-5 [facility] Work Phone: Glucose [Mass/Vol] 97 mg/dL 74-106 [facility] Work Phone: Neutrophils (Bld) [#/Vol] 8.5 10*3/uL 2.0-7.7 [facility] Work Phone: Neutrophils/100 WBC (Bld) 73.4 % 47-70 [facility] Work Phone: Potassium [Moles/Vol] 3.5 mmol/L 3.5-5.1 [facility] Work Phone: Protein [Mass/Vol] 7.6 g/dL 6.4-8.2 [facility] Work Phone: [phone] Sodium [Moles/Vol] 141 mmol/L 136-145 [facility] Work Phone: WBC (Bld) [#/Vol] 11.6 10*3/uL 4.4-11.0 [facility] Work Phone: [phone] Blood erythrocytes count (nu mber/volume)on 10-24-2021 RBC (Bld) [#/Vol] 4.89 10*6/uL 4.2-5.4 [facility] Work Phone: [phone] Blood hemoglobin measurement (mass/volume)on 10-24-2021 Hemoglobin (Bld) [Mass/Vol] 13.6 g/dL 12.0-15.0 [facility] Work Phone: [phone] Blood lymphocytes/100 leukoc yteson 10-24-2021 Lymphocytes/100 WBC (Bld) 18.8 % 19-41 [facility] Work Phone: [phone] Blood monocytes/100 leukocyt eson 10-24-2021 Monocytes/100 WBC (Bld) 6.4 % 0-10 [facility] Work Phone: [phone] Blood platelet mean volumeon 10-24-2021 Platelet mean volume (Bld) [Entitic vol] 9.4 fL 6.2-12.0 [facility] Work Phone: [phone] Determination of erythrocyte mean corpuscular volume (MCV)on 10-24-2021 MCV (RBC) [Entitic vol] 86.1 fL 81-99 [facility] Work Phone: Hematocrit Auto (Bld) [Volum e fraction]on 10-24-2021 Hematocrit (Bld) [Volume fraction] 42.1 % 37-47 [facility] Work Phone: [phone] Laboratory - Chemistry and C hemistry - challengeon 10-24-2021 ALP [Catalytic activity/Vol] 107 U/L 45-117 [facility] Work Phone: [phone] ALT [Catalytic activity/Vol] 23 U/L 13-56 [facility] Work Phone: [phone] CO2 [Moles/Vol] 26.0 mmol/L 21.0-32.0 [facility] Work Phone: [phone] Globulin (S) [Mass/Vol] 4.4 g/dL 2.2-4.2 [facility] Work Phone: [phone] Urea nitrogen/Creatinine [Mass ratio] 13.7 mg/mg 10-20 [facility] Work Phone: [phone] Laboratory - Hematology and Cell countson 10-24-2021 Erythrocyte distribution width (RBC) [Entitic vol] 47.4 fL 35.1-43.9 [facility] Work Phone: [phone] Erythrocyte distribution width (RBC) [Ratio] 15.0 % 11.6-14.6 [facility] Work Phone: [phone] Immature granulocytes/100 WBC (Bld) 0.600 % 0.0-0.9 [facility] Work Phone: [phone] Comment on above: IG% - Immature Granu locytes (promyelocytes, myelocytes and metamyelocytes) > 1% indicates that a LEFT SHIFT is Present. MCH (RBC) [Entitic mass] 27.8 pg 27.0-32.0 [facility] Work Phone: [phone] Nucleated RBC/100 WBC (Bld) [Ratio] 0 % 0-5 [facility] Work Phone: [phone] MCHC Auto (RBC) [Mass/Vol]on 10-24-2021 MCHC (RBC) [Mass/Vol] 32.3 g/dL 32-36 [facility] Work Phone: [phone] Panel Informationon 08-16 -2022 Estimated Creatinine Clearance Calc 68.06 ml/min [facility] Work Phone: Estimated GFR (MDRD) Amer 106 mL/min >60 [facility] Work Phone: Comment on above: GFR Calc Estimated GFR (MDRD) Non-Af Amer 88 mL/min >60 [facility] Work Phone: Comment on above: Non- GFR Calc Platelets bldon 10-24-2021 Platelets (Bld) [#/Vol] 264 10*3/uL 150-450 [facility] Work Phone: Serum or plasma albumin heather urement (mass/volume)on 10-24-2021 Albumin [Mass/Vol] 3.2 g/dL 3.2-5.0 [facility] Work Phone: Serum or plasma albumin/glob ulin mass ratioon 10-24-2021 Albumin/Globulin [Mass ratio] 0.7 {ratio} 0.9-2.4 [facility] Work Phone: Serum or plasma calcium heather urement (mass/volume)on 10-24-2021 Calcium [Mass/Vol] 9.4 mg/dL 8.5-10.1 [facility] Work Phone: Serum or plasma creatinine m easurement (mass/volume)on 10-24-2021 Creatinine [Mass/Vol] 0.73 mg/dL 0.55-1.02 [facility] Work Phone: Comment on above: The validity of the calculated GFR & GFRAA in patients over 70 years has not been determined. Clinical correlation is essential. Serum or plasma urea nitroge n measurement (mass/volume)on 10-24-2021 Urea nitrogen [Mass/Vol] 10 mg/dL 7-18 [facility] Work Phone: Thin prep Papanicolaou smear with manual screeningon 10-24-2021 Thin prep Papanicolaou smear with manual screening 28 U/L 15-37 [facility] Work Phone: Thin prep Papanicolaou smear with manual screening 6 5-15 [facility] Work Phone: Basophil percentageon 2021 Basophil percentage 0-5 SEEN /hpf 0-5 [facility] Work Phone: [phone] Lactate [Moles/Vol] 1.1 mmol/L 0.4-2.0 [facility] Work Phone: Bilirubin Test strip Ql (U)o n 10-23-2021 Bilirubin Ql (U) Negative Negative [facility] Work Phone: [phone] Ketones Test strip Ql (U)on 10-23-2021 Ketones Ql (U) 50 mg/dl Negative [facility] Work Phone: [phone] Laboratory - Chemistry and C hemistry - challengeon 10-23-2021 Magnesium [Mass/Vol] 2.0 mg/dL 1.6-2.6 [facility] Work Phone: Comment on above: Slight Hemolysis, Re sult may be falsely increased. Laboratory - Drug toxicology on 10-23-2021 Amphetamines Ql (U) Negative <1000 ng/mL [facility] Work Phone: Benzodiazepines Ql (U) Negative < 200 ng/mL [facility] Work Phone: [phone] Cannabinoids Screen Ql (U) Negative < 50 ng/mL [facility] Work Phone: Cocaine Ql (U) Negative < 300 ng/mL [facility] Work Phone: Opiates Ql (U) Negative < 300 ng/mL [facility] Work Phone: Mucus LM Ql (Urine sed)on Mucus Ql (Urine sed) 0 SEEN /hpf [facility] Work Phone: Nitrite Test strip Ql (U)on 10-23-2021 Nitrite Ql (U) Negative Negative [facility] Work Phone: No Panel Informationon 10-23 MDMA (Ecstasy) Screen Negative < 500 ng/mL [facility] Work Phone: Urine Barbiturates Screen Negative < 200 ng/mL [facility] Work Phone: [phone] Urine Drug Screen Comment [facility] Work Phone: [phone] Comment on above: CONFIRMATORY TESTING FOR ALL [...] Methadone Screen Negative < 300 ng/mL [facility] Work Phone: [phone] Thyroid Stimulating Hormone (TSH) 1.39 uIU/mL 0.358-3.74 [facility] Work Phone: [phone] Protein Test strip Ql (U)on 10-23-2021 Protein Ql (U) 15 mg/dl Negative [facility] Work Phone: [phone] Squamous epithelial cells de tection in urine sediment by light microscopyon 10-23-2021 Epithelial cells.squamous LM Ql (Urine sed) 0-5 SEEN /hpf 5-10 [facility] Work Phone: [phone] Urine blood detectionon 10-09 RBC Ql (U) 25 /ul Negative [facility] Work Phone: [phone] RBC Ql (U) 0-5 SEEN /hpf 0-5 [facility] Work Phone: [phone] Urine clarityon 10-23-2021 Clarity (U) Clear Clear [facility] Work Phone: [phone] Urine color determinationon 10-23-2021 Color (U) Yellow Yellow [facility] Work Phone: [phone] Urine glucose detectionon Glucose Ql (U) Normal mg/dl Normal [facility] Work Phone: [phone] Urine leukocyte esterase det ection by dipstickon 10-23-2021 Leukocyte esterase Test strip Ql (U) 25 /ul Negative [facility] Work Phone: Urine pHon 10-23-2021 pH (U) 5.0 [pH] 5.0 - 8.0 [facility] Work Phone: Urine phencyclidine (PCP) de tectionon 10-23-2021 Phencyclidine Ql (U) Negative < 25 ng/mL [facility] Work Phone: Urine sediment bacteria coun t by microscopy (number/high power field)on 10-23-2021 Bacteria LM.HPF (Urine sed) [#/Area] 1 /[HPF] None Seen [facility] Work Phone: Urine specific gravity measu rementon 10-23-2021 Specific gravity (U) [Rel density] 1.020 1.002-1.030 [facility] Work Phone: Urobilinogen Auto test strip Ql (U)on 10-23-2021 Urobilinogen Ql (U) Normal mg/dl Normal [facility] Work Phone: Absolute lymphocyte counton 10-22-2021 Lymphocytes Auto (Unsp spec) [#/Vol] 2.47 10*3/uL 0.83-4.51 [facility] Work Phone: Basophil percentageon 2021 Basophils/100 WBC (Bld) 0.4 % 0-1 [facility] Work Phone: Bilirubin [Mass/Vol] 0.30 mg/dL 0.20-1.00 [facility] Work Phone: Comment on above: For patients on eltr ombopag therapy, use of Dimension [place] TBIL is not recommended. Chloride [Moles/Vol] 111 mmol/L 98-107 [facility] Work Phone: Eosinophils/100 WBC (Bld) 2.3 % 0-5 [facility] Work Phone: Glucose [Mass/Vol] 107 mg/dL 74-106 [facility] Work Phone: Comment on above: Fasting Glucose resu lt from 100 to 125 mg/dL suggests IMPAIRED HOMEOSTASIS per A.D.A. criteria. Neutrophils (Bld) [#/Vol] 7.6 10*3/uL 2.0-7.7 [facility] Work Phone: [phone] Neutrophils/100 WBC (Bld) 68.7 % 47-70 [facility] Work Phone: [phone] Potassium [Moles/Vol] 3.9 mmol/L 3.5-5.1 [facility] Work Phone: [phone] Protein [Mass/Vol] 7.8 g/dL 6.4-8.2 [facility] Work Phone: [phone] Sodium [Moles/Vol] 141 mmol/L 136-145 [facility] Work Phone: [phone] WBC (Bld) [#/Vol] 11.1 10*3/uL 4.4-11.0 [facility] Work Phone: [phone] Blood erythrocytes count (nu mber/volume)on 10-22-2021 RBC (Bld) [#/Vol] 5.04 10*6/uL 4.2-5.4 [facility] Work Phone: [phone] Blood hemoglobin measurement (mass/volume)on 10-22-2021 Hemoglobin (Bld) [Mass/Vol] 13.9 g/dL 12.0-15.0 [facility] Work Phone: [phone] Blood lymphocytes/100 leukoc yteson 10-22-2021 Lymphocytes/100 WBC (Bld) 22.3 % 19-41 [facility] Work Phone: [phone] Blood monocytes/100 leukocyt eson 10-22-2021 Monocytes/100 WBC (Bld) 5.8 % 0-10 [facility] Work Phone: [phone] Blood platelet mean volumeon 10-22-2021 Platelet mean volume (Bld) [Entitic vol] 9.5 fL 6.2-12.0 [facility] Work Phone: [phone] Determination of erythrocyte mean corpuscular volume (MCV)on 10-22-2021 MCV (RBC) [Entitic vol] 87.3 fL 81-99 [facility] Work Phone: [phone] Hematocrit Auto (Bld) [Volum e fraction]on 10-22-2021 Hematocrit (Bld) [Volume fraction] 44.0 % 37-47 [facility] Work Phone: [phone] Laboratory - Chemistry and C hemistry - challengeon 10-22-2021 ALP [Catalytic activity/Vol] 112 U/L 45-117 [facility] Work Phone: [phone] ALT [Catalytic activity/Vol] 26 U/L 13-56 [facility] Work Phone: [phone] CO2 [Moles/Vol] 25.0 mmol/L 21.0-32.0 [facility] Work Phone: [phone] Globulin (S) [Mass/Vol] 4.5 g/dL 2.2-4.2 [facility] Work Phone: [phone] Urea nitrogen/Creatinine [Mass ratio] 19.9 mg/mg 10-20 [facility] Work Phone: [phone] Laboratory - Hematology and Cell countson 10-22-2021 Erythrocyte distribution width (RBC) [Entitic vol] 49.0 fL 35.1-43.9 [facility] Work Phone: [phone] Erythrocyte distribution width (RBC) [Ratio] 15.4 % 11.6-14.6 [facility] Work Phone: [phone] Immature granulocytes/100 WBC (Bld) 0.500 % 0.0-0.9 [facility] Work Phone: [phone] Comment on above: IG% - Immature Granu locytes (promyelocytes, myelocytes and metamyelocytes) > 1% indicates that a LEFT SHIFT is Present. MCH (RBC) [Entitic mass] 27.6 pg 27.0-32.0 [facility] Work Phone: [phone] Nucleated RBC/100 WBC (Bld) [Ratio] 0 % 0-5 [facility] Work Phone: [phone] MCHC Auto (RBC) [Mass/Vol]on 10-22-2021 MCHC (RBC) [Mass/Vol] 31.6 g/dL 32-36 [facility] Work Phone: No Panel Informationon 10-22 Estimated Creatinine Clearance Calc 52.30 ml/min [facility] Work Phone: Estimated GFR (MDRD) Amer 78 mL/min >60 [facility] Work Phone: Comment on above: GFR Calc Estimated GFR (MDRD) Non-Af Amer 64 mL/min >60 [facility] Work Phone: Comment on above: Non- GFR Calc Platelets bldon 10-22-2021 Platelets (Bld) [#/Vol] 259 10*3/uL 150-450 [facility] Work Phone: Serum or plasma albumin heather urement (mass/volume)on 10-22-2021 Albumin [Mass/Vol] 3.3 g/dL 3.2-5.0 [facility] Work Phone: Serum or plasma albumin/glob ulin mass ratioon 10-22-2021 Albumin/Globulin [Mass ratio] 0.7 {ratio} 0.9-2.4 [facility] Work Phone: [phone] Serum or plasma calcium heather urement (mass/volume)on 10-22-2021 Calcium [Mass/Vol] 9.5 mg/dL 8.5-10.1 [facility] Work Phone: [phone] Serum or plasma creatinine m easurement (mass/volume)on 10-22-2021 Creatinine [Mass/Vol] 0.95 mg/dL 0.55-1.02 [facility] Work Phone: Comment on above: The validity of the calculated GFR & GFRAA in patients over 70 years has not been determined. Clinical correlation is essential. Serum or plasma urea nitroge n measurement (mass/volume)on 10-22-2021 Urea nitrogen [Mass/Vol] 19 mg/dL 7-18 [facility] Work Phone: [phone] Thin prep Papanicolaou smear with manual screeningon 10-22-2021 Thin prep Papanicolaou smear with manual screening 26 U/L 15-37 [facility] Work Phone: Thin prep Papanicolaou smear with manual screening 5 5-15 [facility] Work Phone: Absolute lymphocyte counton 08-15-2021 Lymphocytes Auto (Unsp spec) [#/Vol] 4.25 10*3/uL 0.83-4.51 [facility] Work Phone: Basophil percentageon 2021 Basophils/100 WBC (Bld) 0.3 % 0-1 [facility] Work Phone: Chloride [Moles/Vol] 107 mmol/L 98-107 [facility] Work Phone: Eosinophils/100 WBC (Bld) 0.6 % 0-5 [facility] Work Phone: Glucose [Mass/Vol] 100 mg/dL 74-106 [facility] Work Phone: Comment on above: Fasting Glucose resu lt from 100 to 125 mg/dL suggests IMPAIRED HOMEOSTASIS per A.D.A. criteria. Neutrophils (Bld) [#/Vol] 12.8 10*3/uL 2.0-7.7 [facility] Work Phone: Neutrophils/100 WBC (Bld) 69.6 % 47-70 [facility] Work Phone: Potassium [Moles/Vol] 4.2 mmol/L 3.5-5.1 [facility] Work Phone: Sodium [Moles/Vol] 140 mmol/L 136-145 [facility] Work Phone: [phone] WBC (Bld) [#/Vol] 18.3 10*3/uL 4.4-11.0 [facility] Work Phone: Blood erythrocytes count (nu mber/volume)on 08-15-2021 RBC (Bld) [#/Vol] 4.87 10*6/uL 4.2-5.4 [facility] Work Phone: Blood hemoglobin measurement (mass/volume)on 08-15-2021 Hemoglobin (Bld) [Mass/Vol] 14.6 g/dL 12.0-15.0 [facility] Work Phone: Blood lymphocytes/100 leukoc yteson 08-15-2021 Lymphocytes/100 WBC (Bld) 23.2 % 19-41 [facility] Work Phone: Blood monocytes/100 leukocyt eson 08-15-2021 Monocytes/100 WBC (Bld) 5.5 % 0-10 [facility] Work Phone: Blood platelet mean volumeon 08-15-2021 Platelet mean volume (Bld) [Entitic vol] 9.9 fL 6.2-12.0 [facility] Work Phone: Determination of erythrocyte mean corpuscular volume (MCV)on 08-15-2021 MCV (RBC) [Entitic vol] 92.8 fL 81-99 [facility] Work Phone: Hematocrit Auto (Bld) [Volum e fraction]on 08-15-2021 Hematocrit (Bld) [Volume fraction] 45.2 % 37-47 [facility] Work Phone: Laboratory - Chemistry and C hemistry - challengeon 08-15-2021 CO2 [Moles/Vol] 26.0 mmol/L 21.0-32.0 [facility] Work Phone: Urea nitrogen/Creatinine [Mass ratio] 12.3 mg/mg 10-20 [facility] Work Phone: Laboratory - Hematology and Cell countson 08-15-2021 Erythrocyte distribution width (RBC) [Entitic vol] 51.7 fL 35.1-43.9 [facility] Work Phone: Erythrocyte distribution width (RBC) [Ratio] 15.1 % 11.6-14.6 [facility] Work Phone: [phone] Immature granulocytes/100 WBC (Bld) 0.800 % 0.0-0.9 [facility] Work Phone: Comment on above: IG% - Immature Granu locytes (promyelocytes, myelocytes and metamyelocytes) > 1% indicates that a LEFT SHIFT is Present. MCH (RBC) [Entitic mass] 30.0 pg 27.0-32.0 [facility] Work Phone: Nucleated RBC/100 WBC (Bld) [Ratio] 0 % 0-5 [facility] Work Phone: [phone] MCHC Auto (RBC) [Mass/Vol]on 08-15-2021 MCHC (RBC) [Mass/Vol] 32.3 g/dL 32-36 [facility] Work Phone: No Panel Informationon 08-15 Estimated GFR (MDRD) Amer 63 mL/min >60 [facility] Work Phone: Comment on above: GFR Calc Estimated GFR (MDRD) Non-Af Amer 52 mL/min >60 [facility] Work Phone: Comment on above: Non- GFR Calc Platelets bldon 08-15-2021 Platelets (Bld) [#/Vol] 286 10*3/uL 150-450 [facility] Work Phone: Serum or plasma calcium heather urement (mass/volume)on 08-15-2021 Calcium [Mass/Vol] 9.3 mg/dL 8.5-10.1 [facility] Work Phone: [phone] Serum or plasma creatinine m easurement (mass/volume)on 08-15-2021 Creatinine [Mass/Vol] 1.14 mg/dL 0.55-1.02 [facility] Work Phone: Comment on above: The validity of the calculated GFR & GFRAA in patients over 70 years has not been determined. Clinical correlation is essential. Serum or plasma urea nitroge n measurement (mass/volume)on 08-15-2021 Urea nitrogen [Mass/Vol] 14 mg/dL 7-18 [facility] Work Phone: [phone] Thin prep Papanicolaou smear with manual screeningon 08-15-2021 Thin prep Papanicolaou smear with manual screening 7 07-23 [facility] Work Phone: EMERGENCY REPORTon 1 EMERGENCY REPORT [facility] EMERGENCY ROOM REPORT NAME ACCOUNT SEX AGE ADMIT DISCHARGE PT MED. RECORD# NUMBER DATE DATE ROXANA BRADSHAW [id number] Best 55 09/22/20 2 RAMSES Rodríguez [id number] ROOM: 305MO DATE OF : 1965 DICTATING [...] test not too long ago up at [place], but she was not sure if it [...] confused again. PCP is Dr. Wadsworth in [place]. Her patrol mother is Dr. Keys in [place]. PAST MEDICAL HISTORY: Hypertension, congestive heart failure, and coronary artery disease. 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 Skin is warm [...] includes post-infe (more content not included)... Normal [facility] EMERGENCY REPORT [facility] EMERGENCY ROOM REPORT NAME ACCOUNT SEX AGE ADMIT DISCHARGE PT MED. RECORD# NUMBER DATE DATE TYPE LEEANN [id number] F 55 09/22/20 2 RAMSES Rodríguez [id number] ROOM: [facility] DATE OF : 1965 DICTATING PHYSICIAN: Autumn [...] Autumn Edwards DO 09/22/20 21:34 JOB #: [id number] Transcribed By: [email or web address] 09/23/20 07:29 Electronically signed by: E-Sign: Dr. Autumn Edwrads D.O. 09/24/20 04:03 Page 1 of 1 RAMSES BRADSHAW Emergency Room Report Normal [facility] CV ECHO COMPLETEon 1 CV ECHO [place] [address] Patient: LEEANNRAMSES. Phone#: : [phone] Age: 55 Gender: F Pt. Type: Out Account: [id number] Location: 010 Ordering: NATALY VASQUEZ Exam Date: 09/23/2020/7:30 Family Phys: GEE MERCHANT Charge Code: [id number] Physician: [place] Order #: [id number] DLP Dose#: PROCEDURE: ECHOCARDIOGRAM WITH DOPPLER AND [...] BSA: 1.9 Weight (lbs.): 195 BP: 119/73 Manager Retirement: GERALD M MODE 2D MEASUREMENTS AND CALCULATIONS: [...] 55 Gender: F Pt. Type: Out Account: [id number] Location: 010 Ordering: NATALY VASQUEZ Exam Date: 09/23/2020/7:30 Family Phys: GEE MERCHANT Charge Code: [id number] Physician: [place] Order #: [id number] DLP Dose#: MV E MAX marco antonio: [...] 55 Gender: F Pt. Type: Out Account: [id number] Location: 010 Ordering: NATALY VASQUEZ Exam Date: 09/23/2020/7:30 Family Phys: GEE MERCHANT Charge Code: [id number] Physician: L[place]h Order #: [id number] DLP Dose#: AORTIC ARCH: Aortic arch is [...] GALLOWAY MD on 09/23/2020 at 9:10 Normal [facility] DRUG SCREEN URINE MEDICon AMPHETAMINES Negative Normal [facility] Comment on above: Performed By: #### 2 [id number] #### [facility],[address] [place] [address] B-DIAZEPINES Negative Normal [facility] Comment on above: Performed By: #### 2 [id number] #### [facility],[address] [place] [address] BARBITURATES Negative [facility] Comment on above: Performed By: #### 2 [id number] #### [facility],[address] [place] [address] COCAINE Negative [facility] Comment on above: Performed By: #### 2 [id number] #### [facility],[address] [place], [place] [id number] DRUG SCREEN URINE MEDIC Normal [facility] Comment on above: Result Comment: DRUG SCREEN - URINE Performed By: #### 2 [id number] #### [facility],[address] [place] [address] METHADONE Negative [facility] Comment on above: Performed By: #### 2 [id number] #### [facility],[address] [place] [address] OPIATES Positive Normal [facility] Comment on above: Performed By: #### 2 [id number] #### [facility],[address] [place] [address] PCP Negative Normal [facility] Comment on above: Performed By: #### 2 [id number] #### [facility],[address] [place] [address],[facility] [address] THC Negative [facility] [facility] Comment on above: Result Comment: DARÍO ENTS RECEIVING PROTON PUMP INHIBITORS MAY DEMONSTRATE FALSE POSITIVE THC/CANNABINOID RESULTS. AN ALTERNATIVE CONFIRMATORY METHOD SHOULD BE CONSIDERED TO VERIFY POSITIVE RESULTS. Performed By: #### 2 14580 #### [facility],[address] [place] [address] 49678 LIPID PROFILEon 09-23-2020 Cholesterol [Mass/Vol] 164 mg/dL Normal 0 - 240 [facility] Comment on above: Performed By: #### 2 61818 ####[facility],[address] [place] [address] 75312 Cholesterol in HDL [Mass/Vol] 26 mg/dL Low 40 - 60 [facility] Comment on above: Performed By: #### 2 54164 ####[facility],[address] [place] [address] 86071 Cholesterol in LDL [Mass/Vol] 99 mg/dL Normal 0 - 129 [facility] Comment on above: Performed By: #### 2 68970 ####[facility],[address] [place] [address] 04872 Cholesterol.total/Roseanna sterol in HDL [Mass ratio] 6.3 {ratio} High 0.0 - 5.0 [facility] Comment on above: Performed By: #### 2 61894 ####[facility],[address] [place] [address] 25353 Lipid 1996 panel Normal [facility] Comment on above: Result Comment: LIPI D PROFILE Performed By: #### 2 03201 ####[facility],[address] [place] [address] 79452 Triglyceride [Mass/Vol] 197 mg/dL High 0 - 150 J l [facility] Comment on above: Performed By: #### 2 20803 ####[facility],[address] [place], [place] [id number] NM CARDIAC STRESS (SPECT) W/ LEXISCANon 09-23-2020 NM CARDIAC STRESS (SPECT) W/LEXISCAN [place] [id number] Patient: RAMSES BRADSHAW Phone#: : 1965 Age: 55 Gender: F Pt. Type: Out Account: [id number] Location: [facility] Ordering: NATALY VASQUEZ Exam Date: 09/23/2020/6:22 Family Phys: GEE MERCHANT Charge Code: [id number] Physician: SAMUEL KEYS Latah Order #: [id number] DLP Dose#: PROCEDURE: CARDIAC STRESS SPECT WITH [...] 55 Gender: F Pt. Type: Out Account: [id number] Location: 010 Ordering: YASSER RAN Exam Date: 09/23/2020/6:22 Family Phys: GEE MERCHANT Charge Code: [id number] Physician: SAMUEL KEYS Latah Order #: [id number] DLP Dose#: CONCLUSION: 1. Nuclear stress test [...] GALLOWAY MD on 09/23/2020 at 12:58 Normal [facility] NM EXERCISE STRESS TEST (W/C ARDIAC STUDYon 09-23-2020 NM EXERCISE STRESS TEST (W/CARDIAC STUDY [place] [id number] Patient: RAMSES BRADSHAW Phone#: : 1965 Age: 55 Gender: F Pt. Type: Out Account: [id number] Location: 010 Ordering: [employer] Exam Date: 09/23/2020/6:22 Family Phys: GEE MERCHANT Charge Code: [id number] Physician: SAMUEL KEYS L[place]h Order #: [id number] DLP Dose#: PROCEDURE: ELECTROCARDIOGRAM STRESS TEST HISTORY: [...] 55 Gender: F Pt. Type: Out Account: [id number] Location: [facility] Ordering: NATALY VASQUEZ Exam Date: 09/23/2020/6:22 Family Phys: GEE MERCHANT Charge Code: [id number] Physician: SAMUEL KEYS [place] Order #: [id number] DLP Dose#: 1. Patient did not complain of any chest pain with regadenoson. She had nausea which improved during recovery 2. Stress EKG is negative for inducible ischemia 3. Nuclear images will be read and reported separately Dictated by: SAHARA GALLOWAY MD on 09/23/2020 at 10:50 Approved by: SAHARA GALLOWAY MD on 09/23/2020 at 11:03 Normal [facility] TROPONIN I, HIGH SENSITIVITY on 09-23-2020 HS TROPONIN 6.4 pg/mL Normal 0.0 - 51.4 [facility] Comment on above: Performed By: #### 2 22828 #### [facility],[address] [place] [address] URINALYSISon 09-23-2020 Amorphous NONE Normal [facility] Comment on above: Performed By: #### 2 21715 #### [facility],[address] [place] [address] 82218 Bacteria 2+ Normal [facility] Comment on above: Performed By: #### 2 91565 #### [facility],[address] [place] [address] 52188 Bilirubin Ql (U) Negative Normal NORMAL: NEGATIVE [facility] Comment on above: Performed By: #### 2 18203 #### [facility],[address] [place], [place] [id number] Casts SEE BELOW Normal [facility] Comment on above: Performed By: #### 2 08286 #### [facility],[address] [place] [address] Clarity (U) clear Normal NORMAL: CLEAR [facility] Comment on above: Performed By: #### 2 96878 #### [facility],[address] [place], [place] [address] Color (U) harjeet Normal NORMAL: YELLOW [facility] Comment on above: Performed By: #### 2 95004 #### [facility],[address] [place] [address] 99996 Crystals LM Nom (Urine sed) NONE Normal [facility] Comment on above: Performed By: #### 2 64464 #### [facility],[address] [place] [address] 23236 Epi Cells MANY Normal [facility] Comment on above: Performed By: #### 2 41764 #### [facility],[address] [place] [address] 19050 Glucose Ql (U) NORM Normal NORMAL: NORMAL [facility] Comment on above: Performed By: #### 2 65270 #### [facility],[address] [place] [address] 15233 Hemoglobin Ql (U) Negative Normal NORMAL: NEGATIVE [facility] Comment on above: Performed By: #### 2 31113 #### [facility],[address] [place] [address] 83176 Hyaline RARE Normal NORMAL: NONE [facility] Comment on above: Performed By: #### 2 33265 #### [facility],[address] [place] [address] 42080 Ketone Negative Normal NORMAL: NEGATIVE [facility] Comment on above: Performed By: #### 2 69545 #### [facility],[address] [place], [place] [address] Leukocytes 25 Abnormal NORMAL: NEGATIVE [facility] Comment on above: Performed By: #### 2 55926 #### [facility],[address] [place] [address] Mucous NONE Normal [facility] Comment on above: Performed By: #### 2 04576 #### [facility],[address] [place], [place] [address] Nitrite Ql (U) Negative Normal NORMAL: NEGATIVE [facility] Comment on above: Performed By: #### 2 82887 #### [facility],[address] [place], [place] [address] pH (U) 5 [pH] Normal NORMAL: 5.0-8.0 [facility] Comment on above: Performed By: #### 2 76929 #### [facility],[address] [place], [place] [address] Protein Ql (U) 15 Abnormal NORMAL: NEGATIVE [facility] Comment on above: Performed By: #### 2 39205 #### [facility],[address] [place], [place] [address] Rbc NONE Normal 0-3/hpf [facility] Comment on above: Performed By: #### 2 91131 #### [facility],[address] [place] [address] Sp [place] 1.020 Normal NORMAL: 1.010-1.030 [facility] Comment on above: Performed By: #### 2 94043 #### [facility],[address] [place] [address] Specimen Type Void Normal [facility] Comment on above: Performed By: #### 2 13022 #### [facility],[address] [place] [address] Urinalysis dipstick W Reflex Microscopic panel (U) SEE BELOW Normal [facility] Comment on above: Result Comment: MICR OSCOPIC Performed By: #### 2 56651 #### [facility],[address] [place] [address] 27212 Urobilinog NORM Normal NORMAL: NORMAL [facility] Comment on above: Performed By: #### 2 59487 #### [facility],[address] [place] [address] Wbc 1-5 Normal 0-5/hpf [facility] Comment on above: Performed By: #### 2 34060 #### [facility],[address] [place] [address] Yeast 1+ Normal [facility] Comment on above: Performed By: #### 2 68090 #### [facility],[address] [place] [address] 90684 BMP with eGFRon 09-22-2020 AGE 55 years Normal [facility] Comment on above: Performed By: #### 2 43486 ####[facility],[address] [place], [place] [address] Anion gap [Moles/Vol] 11 mmol/L Normal 10 - 20 [facility] Comment on above: Performed By: #### 2 64167 ####[facility],[address] [place] [address] 96618 BMP with eGFR Normal [facility] Comment on above: Result Comment: BASI C METABOLIC PANEL Performed By: #### 2 21894 ####[facility],[address] [place] [address] 97794 Calcium [Mass/Vol] 9.1 mg/dL Normal 8.5 - 10.1 [facility] Comment on above: Performed By: #### 2 25482 ####[facility],[address] [place] [address] 70718 Chloride [Moles/Vol] 102 mmol/L Normal 98 - 107 [facility] Comment on above: Performed By: #### 2 35344 ####[facility],[address] [place] [address] 23190 CO2 [Moles/Vol] 27.4 mmol/L Normal 21.0 - 32.0 [facility] Comment on above: Performed By: #### 2 35523 ####[facility],[address] [place] [address] 97254 Creatinine [Mass/Vol] 1.34 mg/dL High 0.55 - 1.02 [facility] Comment on above: Performed By: #### 2 51748 ####[facility],[address] [place] [address] 91641 eGFR 41 ML/MINUTE Low 60 - 999 [facility] Comment on above: Performed By: #### 2 01885 ####[facility],[address] [place] [address] 18140 eGFR(AA) 50 ML/MINUTE Low 60 - 999 [facility] Comment on above: Result Comment: ACCO RDING TO THE NATIONAL KIDNEY DISEASE EDUCATION PROGRAM(NKDE), A NORMAL eGFR IS A VALUE GREATER THAN OR EQUAL TO 60 ML/MIN/1.73 SQ METERS. CHRONIC KIDNEY DISEASE: <60mL/MIN/1.73 SQ METERS KIDNEY FAILURE: <15mL/MIN/1.73 SQ METERS THIS TEST SHOULD ONLY BE USED FOR PATIENTS 18 YEARS OF AGE AND OLDER. Performed By: #### 2 10761 ####[facility],[address] [place] [address] 71567 Glucose [Mass/Vol] 98 mg/dL Normal 74 - 106 [facility] Comment on above: Performed By: #### 2 70875 ####[facility],[address] [place] [address] 86490 Potassium [Moles/Vol] 3.6 mmol/L Normal 3.5 - 5.1 [facility] Comment on above: Performed By: #### 2 23152 ####[facility],[address] [place] [address] 82242 Sodium [Moles/Vol] 137 mmol/L Normal 136 - 145 [facility] Comment on above: Performed By: #### 2 01564 ####[facility],[address] [place] [address] Urea nitrogen [Mass/Vol] 20 mg/dL High 7 - 18 [facility] Comment on above: Performed By: #### 2 80047 ####[facility],[address] [place] [address] CBC + DIFFon 09-22-2020 Baso # 0.20 x10EE3/UL High 0.00 - 0.10 [facility] Comment on above: Performed By: #### 2 33138 ####[facility],[address] [place] [address] 84626 Basophils/100 WBC (Bld) 1.4 % Normal 0.0 - 2.0 [facility] Comment on above: Performed By: #### 2 67124 ####[facility],[address] [place] [address] 73272 CBC + DIFF Normal [facility] Comment on above: Result Comment: CBC- COMPLETE BLOOD COUNT Performed By: #### 2 63189 ####[facility],[address] [place] [address] 17589 EO # 0.40 x10EE3/UL Normal 0.00 - 0.50 [facility] Comment on above: Performed By: #### 2 09870 ####[facility],[address] [place] [address] 96771 Eosinophils/100 WBC (Bld) 2.8 % Normal 0.0 - 7.0 [facility] Comment on above: Performed By: #### 2 77749 ####[facility],[address] [place] [address] Erythrocyte distribution width (RBC) [Ratio] 16.3 % High 12.0 - 15.6 [facility] Comment on above: Performed By: #### 2 11910 ####[facility],[address] [place] [address] Hematocrit (Bld) [Volume fraction] 40.7 % Normal 34.0 - 46.0 [facility] Comment on above: Performed By: #### 2 78621 ####[facility],[address] [place] [address] Hemoglobin (Bld) [Mass/Vol] 13.8 g/dL Normal 12.0 - 16.0 [facility] Comment on above: Performed By: #### 2 07687 ####[facility],[address] [place] [address] Lymph # 3.20 x10EE3/UL High 0.80 - 2.80 [facility] Comment on above: Performed By: #### 2 31081 ####[facility],[address] [place], [place] [address] Lymphocytes/100 WBC (Bld) 23.4 % Normal 20.0 - 45.0 [facility] Comment on above: Performed By: #### 2 86729 ####[facility],[address] [place], [place] [address] MANUAL DIFF N/A Normal [facility] Comment on above: Performed By: #### 2 94568 ####[facility],[address] [place], [place] [address] MCH (RBC) [Entitic mass] 29 pg Normal 27 - 33 [facility] Comment on above: Performed By: #### 2 67079 ####[facility],[address] [place], [place] [address] MCHC 34 X10 3 Normal 32 - 36 [facility] Comment on above: Performed By: #### 2 22105 ####[facility],[address] [place] [address] 99006 MCV (RBC) [Entitic vol] 85 fL Normal 80 - 99 [facility] Comment on above: Performed By: #### 2 01054 ####[facility],[address] [place] [address] 53032 [place] # 1.00 x10EE3/UL Normal 0.20 - 1.00 [facility] Comment on above: Performed By: #### 2 53621 ####[facility],[address] [place] [address] 84253 MONOS % 7.4 % Normal 0.0 - 10.0 [facility] Comment on above: Performed By: #### 2 00914 ####[facility],[address] [place] [address] 85290 Morphology Nacho (Bld) [Interp] N/A Normal [facility] Comment on above: Result Comment: {CD] Performed By: #### 2 49422 ####[facility],[address] [place] [address] Neut # 8.90 x10EE3/UL High 1.50 - 7.10 [facility] Comment on above: Performed By: #### 2 61835 ####[facility],[address] [place] [address] 26450 Neutrophils/100 WBC (Bld) 65.0 % Normal 46.0 - 76.0 [facility] Comment on above: Performed By: #### 2 12303 ####[facility],[address] [place], [place] [address] PLATELET 256 x10EE3/UL Normal 150 - 450 [facility] Comment on above: Performed By: #### 2 45392 ####[facility],[address] [place] [address] 28111 Platelet mean volume (Bld) [Entitic vol] 7.1 fL Normal 6.6 - 10.5 [facility] Comment on above: Result Comment: AUTO MATED DIFFERENTIAL Performed By: #### 2 66908 ####[facility],[address] [place] [address] 84090 RBC 4.79 x 10EE6/UL Normal 4.10 - 5.30 [facility] Comment on above: Performed By: #### 2 48845 ####[facility],[address] [place] [address] 72647 WBC 13.7 x 10EE3/UL High 4.5 - 10.8 [facility] Comment on above: Performed By: #### 2 29550 ####[facility],[address] [place] [address] 55287 CHEST 1 VIEWon 09-22-2020 CHEST [address] [address] Patient: RAMSES BRADSHAW Phone#: : 1965 Age: 55 Gender: F Pt. Type: ER Account: [id number] Location: 05 Ordering: DR. MADISON HAYDEN Exam Date: 09/22/2020/18:04 Family Phys: GEE MERCHANT Charge Code: [id number] Physician: [place] Order #: [id number] DLP Dose#: PROCEDURE: X-RAY CHEST 1 VIEW COMPARISON: [facility], XR, CHEST 2 VIEWS, 09/28/2018, 12:21. INDICATIONS: [...] King MD on 09/22/2020 at 18:25 Normal [facility] CT BRAIN W/O CONTRASTon 09-08 CT BRAIN W/O CONTRAST [address] [address] Patient: RAMSES BRADSHAW Phone#: : 1965 Age: 55 Gender: F Pt. Type: ER Account: [id number] Location: 052 Ordering: DR. MADISON HAYDEN Exam Date: 09/22/2020/18:11 Family Phys: KASEYBILLY HardingSpike DAGMARALANA Charge Code: [id number] Physician: [place] Order #: [id number] DLP Dose#: 57.50 PROCEDURE: CT BRAIN WITHOUT CONTRAST COMPARISON: [facility], CT, BRAIN W/O CON, 05/23/2018, 19:33. [facility], CT, BRAIN W/O CON, 06/27/2018, 18:21. INDICATIONS: [...] evaluation when the patient is clinically able. [address] [address] Patient: RAMSES BRADSHAW Phone#: : 1965 Age: 55 Gender: F Pt. Type: ER Account: [id number] Location: 052 Ordering: DR. MADISON HAYDEN Exam Date: 09/22/2020/18:11 Family Phys: GEE MERCHANT Charge Code: [id number] Physician: [place] Order #: [id number] DLP Dose#: 57.50 Dictated by: Nemo King MD on 09/22/2020 at 18:25 Approved by: Nemo King MD on 09/22/2020 at 18:35 Normal [facility] CT CERVICAL W/O CONTRASTon 0 09-22-2020 CT CERVICAL W/O CONTRAST [place] [address] Patient: RAMSES BRADSHAW Phone#: : 1965 Age: 55 Gender: F Pt. Type: ER Account: [id number] Location: 010 Ordering: [employer] EDWARDS Exam Date: 09/22/2020/20:43 Family Phys: GEE MERCHANT Charge Code: [id number] Physician: [place] Order #: [id number] DLP Dose#: 15.10 mGy PROCEDURE: CT CERVICAL WITHOUT CONTRAST COMPARISON: [facility], CT, CERVICAL W/O CON, 06/27/2018, 18:21. INDICATIONS: [...] 55 Gender: F Pt. Type: ER Account: [id number] Location: [facility] Ordering: AUTUM[employer] EDWARDS Exam Date: 09/22/2020/20:43 Family Phys: GEE MERCHANT Charge Code: [id number] Physician: [place] Order #: [id number] DLP Dose#: 15.10 mGy Approved by: Jaqueline Potts MD on 09/23/2020 at 10:10 Normal [facility] NT-proBNPon 09-22-2020 Natriuretic peptide B (Bld) [Mass/Vol] 333 pg/mL High 0 - 125 [facility] Comment on above: Performed By: #### 2 91500 ####[place] [address] TROPONIN I, HIGH SENSITIVITY on 09-22-2020 HS TROPONIN 7.0 pg/mL Normal 0.0 - 51.4 [facility] Comment on above: Performed By: #### 2 67273 #### [place] [id number] [place] GASTRIC EMPTYING STUDYon 05-05-2020 NM GASTRIC [...] Sign Date: 05/05/2020 3:19:32 PM Ordering Provider:Alan Mack [facility] ([place] Comprehensive Panelon 2018 ALP [Catalytic activity/Vol] 95 U/L Normal 45-[address] [facility] Comment on above: Performed By: #### P 14 #### [address] [address] Bilirubin [Mass/Vol] 0.4 mg/dL Normal 0.2-1.0 [facility] Comment on above: Performed By: #### P 14 #### [facility] [address] [place], [place] [address] Protein [Mass/Vol] 7.3 g/dL Normal 6.4-8.[address] [facility] Comment on above: Performed By: #### P 14 #### [facility] [address] [place], [place] [address] ALT [Catalytic activity/Vol] 21 U/L Normal 12-[address] [facility] Comment on above: Performed By: #### P 14 #### [facility] [address] [place], [place] [address] AST [Catalytic activity/Vol] 12 U/L Low 15-[address] [facility] Comment on above: Performed By: #### P 14 #### [facility] [address] [place], [place] [address] Creatinine [Mass/Vol] 0.92 mg/dL Normal 0.51-0.95 [facility] Comment on above: Performed By: #### P 14 #### [facility] [address] [place], [place] [address] Glucose [Mass/Vol] 84 mg/dL Normal 70-[address] [facility] Comment on above: Performed By: #### P 14 #### [facility] [address] [place], [place] [address] Albumin [Mass/Vol] 3.6 g/dL Normal 3.4-5.[address] [facility] Comment on above: Performed By: #### P 14 #### [facility] [address] [place], [place] [address] Anion gap [Moles/Vol] 9 mmol/L Normal 8-16 [facility] Comment on above: Performed By: #### P 14 #### [facility] [address] [place], [place] [address] Calcium [Mass/Vol] 8.9 mg/dL Normal 8.5-10.[address] [facility] Comment on above: Performed By: #### P 14 #### [facility] [address] [place], [place] [address] CO2 [Moles/Vol] 28 mmol/L Normal 21-[address] [facility] Comment on above: Performed By: #### P 14 #### [facility] [address] [place], [place] [address] Urea nitrogen [Mass/Vol] 10 mg/dL Normal 7-[address] [facility] Comment on above: Performed By: #### P 14 #### [facility] [address] [place], [place] [address] Chloride [Moles/Vol] 104 mmol/L Normal 98-107 [facility] Comment on above: Performed By: #### P 14 #### [facility] [address] [place], [place] [address] Potassium [Moles/Vol] 3.8 mmol/L Normal 3.5-5.1 [facility] Comment on above: Performed By: #### P 14 #### [facility] 1 [place] [address] Sodium [Moles/Vol] 137 mmol/L Normal 136-[address] [facility] Comment on above: Performed By: #### P 14 #### [place] [address] Hemogram/Diffon 10-11-2018 Abs Immature Grans 0.20 thou/cmm High 0.00-0.05 [facility] Comment on above: Performed By: #### C BCD1 #### [place] [address] Abs Neut (ANC) 16.32 thou/cmm High 1.56-6.[address] [facility] Comment on above: Performed By: #### C BCD1 #### [place] [address] Abs. Baso 0.07 thou/cmm Normal 0.01-0.[address] [facility] Comment on above: Performed By: #### C BCD1 #### [place] [address] Abs. Pima 1.40 thou/cmm High 0.27-0.[address] [facility] Comment on above: Performed By: #### C BCD1 #### [place] [address] Basophils/100 WBC (Bld) 0.3 % Normal [facility] Comment on above: Performed By: #### C BCD1 #### [place] [address] Eosinophils (Bld) [#/Vol] 0.27 thou/cmm Normal 0.00-0.[address] [facility] Comment on above: Performed By: #### C BCD1 #### [place] [address] Eosinophils/100 WBC (Bld) 1.2 % Normal [facility] Comment on above: Performed By: #### C BCD1 #### [facility] [address] [place], [place] [address] Immature Grans 0.90 % Normal [facility] Comment on above: Performed By: #### C BCD1 #### [facility] [address] [place], [place] [address] Lymphocytes (Bld) [#/Vol] 3.90 thou/cmm High 1.18-3.[address] [facility] Comment on above: Performed By: #### C BCD1 #### [facility] [address] [place], [place] [address] Lymphocytes/100 WBC (Bld) 17.6 % Normal [facility] Comment on above: Performed By: #### C BCD1 #### [facility] [address] [place], [place] [address] Monocytes/100 WBC (Bld) 6.3 % Normal [facility] Comment on above: Performed By: #### C BCD1 #### [facility] [address] [place] [address] Seg Neutrophil 73.7 % Normal [facility] Comment on above: Performed By: #### C BCD1 #### [facility] [address] [place] [address] Erythrocyte distribution width (RBC) [Ratio] 14.2 % Normal 11.7-14.[address] [facility] Comment on above: Performed By: #### C BCD1 #### [facility] [address] [place] [address] Hematocrit (Bld) [Volume fraction] 42.1 % Normal 34.1-44.[address] [facility] Comment on above: Performed By: #### C BCD1 #### [facility] [address] [place], [place] [address] Hemoglobin (Bld) [Mass/Vol] 13.6 g/dL Normal 11.2-15.[address] [facility] Comment on above: Performed By: #### C BCD1 #### [facility] [address] [place] [address] MCH (RBC) [Entitic mass] 30.8 pg Normal 25.6-32.[address] [facility] Comment on above: Performed By: #### C BCD1 #### [facility] [address] [place], [place] [address] MCHC (RBC) [Mass/Vol] 32.3 % Normal 31.6-34.8 [facility] Comment on above: Performed By: #### C BCD1 #### [facility] [address] [place] [address] MCV (RBC) [Entitic vol] 95.5 fL High 79.4-94.8 [facility] Comment on above: Performed By: #### C BCD1 #### [facility] [address] [place] [address] Platelet mean volume (Bld) [Entitic vol] 8.8 fL Low 9.4-12.[address] [facility] Comment on above: Performed By: #### C BCD1 #### [place] [address] Platelets (Bld) [#/Vol] 231 thou/cmm Normal 182-[address] [facility] Comment on above: Performed By: #### C BCD1 #### [facility] [address] [place] [address] RBC (Bld) [#/Vol] 4.41 mil/cmm Normal 3.93-5.[address] [facility] Comment on above: Performed By: #### C BCD1 #### [place] [address] RDW SD 49.8 fl High 36.4-46.[address] [facility] Comment on above: Performed By: #### C BCD1 #### [facility] [address] [address] WBC (Bld) [#/Vol] 22.15 thou/cmm High 3.98-10.04 [facility] Comment on above: Performed By: #### C BCD1 #### [facility] [address] [address] Lipase Bloodon 10-11-2018 Lipase Blood 51 U/L Low 73-[address] [facility] Comment on above: Performed By: #### L IP #### [place] [address] MDRD GFRon 10-11-2018 GFR/1.73 sq M predicted among non-blacks MDRD (S/P/Bld) [Vol rate/Area] mL/min/{1.73_m2} Normal >60mL/min/[address] [facility] Comment on above: Result Comment: If t he patient is , multiply the result by 1.210. Performed By: #### G FR #### [place] [address] Urinalysis Routineon 019 Bacteria LM.HPF (Urine sed) [#/Area] NONE Normal None [facility] Comment on above: Performed By: #### U RIN2 #### [place] [address] Ep Cells Urine 0.4 /hpf Normal 0.0-5.[address] [facility] Comment on above: Performed By: #### U RIN2 #### [place] [address] Hyaline Cast 0.3 /lpf Normal 0.0-1.[address] [facility] Comment on above: Performed By: #### U RIN2 #### [place] [address] RBC LM.HPF (Urine sed) [#/Area] 2.4 /[HPF] Normal 0.0-5.[address] [facility] Comment on above: Performed By: #### U RIN2 #### [place] [address] WBC LM.HPF (Urine sed) [#/Area] 0.5 /[HPF] Normal 0.0-5.[address] [facility] Comment on above: Performed By: #### U RIN2 #### [place] [address] Appearance (U) CLEAR Normal [facility] Comment on above: Performed By: #### U RIN2 #### [place] [address] Bilirubin (U) [Mass/Vol] Negative Normal Negative [facility] Comment on above: Performed By: #### U RIN2 #### [facility] [address] [address] Color (U) YELLOW Normal [facility] Comment on above: Performed By: #### U RIN2 #### [facility] [address] [address] Glucose Ql (U) Negative Normal Negative [facility] Comment on above: Performed By: #### U RIN2 #### [facility] [address] [address] Hemoglobin,Urine Negative Normal Negative [facility] Comment on above: Performed By: #### U RIN2 #### [facility] [address] [address] Ketone Urine Negative Normal Negative [facility] Comment on above: Performed By: #### U RIN2 #### [facility] [address] [address] Leukocytes Esterase Negative Normal Negative [facility] Comment on above: Performed By: #### U RIN2 #### [facility] [address] [address] Nitrites Urine Negative Normal Negative [facility] Comment on above: Performed By: #### U RIN2 #### [facility] [address] [address] pH (U) 6.0 [pH] Normal 5.0-8.[address] [facility] Comment on above: Performed By: #### U RIN2 #### [facility] [address] [address] Protein (U) [Mass/Vol] Negative Normal Negative [facility] Comment on above: Performed By: #### U RIN2 #### [facility] [address] [address] Specific [place], Ur 1.018 Normal 1.005-1.030 [facility] Comment on above: Performed By: #### U RIN2 #### [facility] [address] [address] Urobilinogen,Ur 0.2 EU/dL Normal 0.2-1.[address] [facility] Comment on above: Performed By: #### U RIN2 #### [facility] [address] [address] ED NOTEon 09-04-2018 ED NOTE HNO ID: [id number] Author: Priya Serrano RN Service: ? Author Type: Registered Nurse [...] DATE: September 07, 2018 TIME: 3:56 PM [facility] ED NOTE HNO ID: [id number] Author: Davina Abreu RN Service: ? Author [...] paperwork. Patient ambulated out on her own. [facility] ED NOTE HNO ID: [id number] Author: Davina Abreu RN Service: ? Author [...] All medication was wittiness ed being taken. [facility] ED NOTE HNO ID: [id number] Author: Davina Abreu RN Service: ? Author [...] WC on her own and into bed. 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 pacemaker checked at [facility] - Sick sinus syndrome (HCC) - Sleep apnea uses cpap at night PAST SURGICAL HISTORY Procedure Laterality Date - APPENDECTOMY - CARPAL TUNNEL left - HYSTERECTOMY HX - LAPAROSCOPY DIAGNOSTIC - PACEMAKER (PM) 2003 - PAST SURGICAL HISTORY OF lumbar pain injections. - MI ANESTH,LUMBAR SPINE,CORD SURGERY 02/07/2016 L4-L5 fusion; [facility] - REVISE ULNAR NERVE AT [...] did not help her. She's been taking [id number] medicines with little relief. No history of [...] previous surgeon she states they are at [facility]. I also discussed with her that she [...] SIGNATURE: NATALIE Broderick ([place]) 09/04/18 1517 Normal [facility] Lab Report: Gastrin, Serumon 04-15-2017 gastrin, serum 266 pg/mL High 0-115 [facility] [employer] Work Phone: Lab Report: CBC W/Diff, Auto matedon 04-12-2017 Basophils/100 leukocytes 0.4 % Invalid Interpretation Code 0-1 [facility] [employer] Work Phone: Eosinophils/100 leukocytes 2.2 % Invalid Interpretation Code 0-5 [facility] [employer] Work Phone: Erythrocytes (RBC) 5.05 10*6/uL Invalid Interpretation Code 4.2-5.4 [facility] [employer] Work Phone: Hematocrit (HCT) 45.7 % Invalid Interpretation Code 37-47 [facility] [employer] Work Phone: Hemoglobin (HGB) 15.4 g/dL High 12.0-15.0 [facility] Work Phone: immature granulocytes, percentage of total cells, blood 0.400 % Invalid Interpretation Code 0.0-0.9 [facility] Work Phone: Lymphocytes 3.50 X10 3/UL Invalid Interpretation Code 0.83-4.51 [facility] Work Phone: Lymphocytes/100 leukocytes 28.8 % Invalid Interpretation Code 19-41 [facility] Work Phone: MCH 30.5 pg Invalid Interpretation Code 27.0-32.0 [facility] Work Phone: MCHC 33.7 G/GL Invalid Interpretation Code 32-36 [facility] Work Phone: MCV 90.5 fL Invalid Interpretation Code 81-99 [facility] Work Phone: Monocytes/100 leukocytes 6.8 % Invalid Interpretation Code 0-10 [facility] Work Phone: neutrophil count, blood 7.5 X10 3/UL Invalid Interpretation Code 2.0-7.7 [facility] Work Phone: Neutrophils/100 leukocytes 61.4 % Invalid Interpretation Code 47-70 [facility] Work Phone: Platelets 256 10*3/mm3 Invalid Interpretation Code 150-450 [facility] Work Phone: PMV by North 10.7 fL Invalid Interpretation Code 6.2-12.0 [facility] Work Phone: RDW-CA 13.2 % Invalid Interpretation Code 11.6-14.6 [facility] Work Phone: red blood cell distribution width, size density 43.4 fL Invalid Interpretation Code 35.1-43.9 [facility] Work Phone: WBC (Leukocytes) 12.2 10*3/uL High 4.4-11.0 [facility] Work Phone: Lab Report: Comprehensive Me tabolic Profilon 04-12-2017 Alanine aminotransferase (ALT) 31 U/L Invalid Interpretation Code 13-56 [facility] Work Phone: Albumin 3.9 g/dL Invalid Interpretation Code 3.2-5.0 [facility] [employer] Work Phone: [phone] Albumin/Globulin Ratio 1 {ratio} Invalid Interpretation Code 0.9-2.4 [facility] [employer] Work Phone: [phone] Alkaline phosphatase (ALP) 103 U/L Invalid Interpretation Code 45-117 [facility] [employer] Work Phone: [phone] Anion gap 9 mmol/L Invalid Interpretation Code 5-15 [facility] [employer] Work Phone: [phone] Aspartate aminotransferase (AST) 20 U/L Invalid Interpretation Code 15-37 [facility] [employer] Work Phone: [phone] Bilirubin (total) 0.20 mg/dL Invalid Interpretation Code 0.20-1.00 [facility] [employer] Work Phone: [phone] BUN/Creatinine Ratio 13.7 RATIO Invalid Interpretation Code 10-20 [facility] [employer] Work Phone: [phone] Calcium 9.7 mg/dL Invalid Interpretation Code 8.5-10.1 [facility] [employer] Work Phone: [phone] Chloride 108 mmol/L High 98-107 [facility] [employer] Work Phone: [phone] CO2 26.0 mmol/L Invalid Interpretation Code 21.0-32.0 [facility] [employer] Work Phone: [phone] Creatinine 0.88 mg/dL Invalid Interpretation Code 0.55-1.02 [facility] [employer] Work Phone: [phone] eGFR (non-black) 72 mL/min/{1.73_m2} Invalid Interpretation Code >60 [facility] [employer] Work Phone: [phone] eGFR (non-black) 87 mL/min/{1.73_m2} Invalid Interpretation Code >60 [facility] [employer] Work Phone: [phone] Globulin 4.0 g/dL Invalid Interpretation Code 2.2-4.2 [facility] [employer] Work Phone: [phone] Glucose 95 mg/dL Invalid Interpretation Code 74-106 [facility] [employer] Work Phone: [phone] Potassium 3.5 mmol/L Invalid Interpretation Code 3.5-5.1 [facility] Work Phone: Protein 7.9 g/dL Invalid Interpretation Code 6.4-8.2 [facility] Work Phone: Sodium 143 mmol/L Invalid Interpretation Code 136-145 [facility] Work Phone: Urea nitrogen 12 mg/dL Invalid Interpretation Code 7-18 [facility] Work Phone: Lab Report: BMPon 03-30-2013 CO2 5 mmol/L Normal 5-15 [facility] Work Phone: Lab Report: PTon 03-30-2013 INR in blood by coagulation 1.0 {INR} Normal [facility] Work Phone: prothrombin time, actual/normal, ratio 13.0 SECONDS Normal 11.9-14.4 [facility] Work Phone: Lab Report: UAon 03-30-2013 specific gravity, urine 1.015 Normal 1.002-1.030 [facility] Work Phone: Culture, urine Bacteria identified Cx Nom (U) Lactobacillus sp. [facility] Work Phone: Vital Signs Date Time Vital Sign Value Performing Clinician Julia louis 10-10-2024 19:00-0400 Diastolic blood pressure 81 mm[Hg] Dr. Charla Wadsworth MD Work Phone: [facility] 10-10-2024 19:00-0400 Heart rate 73 /min Dr. Charla Wadsworth MD Work Phone: [facility] 10-10-2024 19:00-0400 Respiratory rate 14 /min Dr. Charla Wadsworth MD Work Phone: [facility] 10-10-2024 19:00-0400 SaO2% (BldA) [Mass fraction] 98 % Dr. Charla Wadsworth MD Work Phone: [facility] 10-10-2024 19:00-0400 Systolic blood pressure 126 mm[Hg] Dr. Charla Wadsworth MD Work Phone: [facility] 10-10-2024 18:48-0400 Body temperature 98 [degF] Dr. Charla Wadsworth MD Work Phone: [facility] 10-10-2024 15:56-0400 Body height 157.[address] Charla Wadsworth MD Work Phone: [facility] 10-10-2024 15:56-0400 Body mass index (BMI) [Ratio] 42.3 kg/m2 Dr. Charla Wadsworth MD Work Phone: [facility] 10-10-2024 15:56-0400 Body weight [address] Charla Wadsworth MD Work Phone: [facility] 10-02-2024 13:23-0400 Body height 157.[address] Charla Wadsworth MD Work Phone: [facility] 10-02-2024 13:23-0400 Body mass index (BMI) [Ratio] 41.3 kg/m2 Dr. Charla Wadsworth MD Work Phone: [facility] 10-02-2024 13:23-0400 Body temperature 96.4 [degF] Dr. Charla Wadsworth MD Work Phone: [facility] 10-02-2024 13:23-0400 Body weight 102.[address] Charla Wadsworth MD Work Phone: [facility] 10-02-2024 13:23-0400 Diastolic blood pressure 66 mm[Hg] Dr. Charla Wadsworth MD Work Phone: [facility] 10-02-2024 13:23-0400 Heart rate 67 /min Dr. Charla Wadsworth MD Work Phone: [facility] 10-02-2024 13:23-0400 Respiratory rate 16 /min Dr. Charla Wadsworth MD Work Phone: [facility] 10-02-2024 13:23-0400 SaO2% (BldA) [Mass fraction] 91 % Dr. Charla Wadsworth MD Work Phone: [facility] 10-02-2024 13:23-0400 Systolic blood pressure 102 mm[Hg] Dr. Charla Wadsworth MD Work Phone: [facility] 08-05-2024 09:25-0400 Body height 157.5 cm Butch Mays MD Work Phone: [facility] 08-05-2024 09:25-0400 Body mass index (BMI) [Ratio] 40.97 kg/m2 Butch Mays MD Work Phone: [facility] 08-05-2024 09:25-0400 Body weight 101.61 kg Butch Mays MD Work Phone: [facility] 08-04-2024 14:55-0400 Diastolic blood pressure 72 mm[Hg] Mri Bore/1.5t) [facility] 08-04-2024 14:55-0400 Heart rate 75 /min Mri Bore/1.5t) [facility] 08-04-2024 14:55-0400 Respiratory rate 16 /min Mri Bore/1.5t) [facility] 08-04-2024 14:55-0400 SaO2% (BldA) [Mass fraction] 94 % Mri Bore/1.5t) [facility] 08-04-2024 14:55-0400 Systolic blood pressure 119 mm[Hg] Mri Bore/1.5t) [facility] 07-23-2024 00:03-0400 Body temperature 97.9 [degF] Dr. Charla Wadsworth MD Work Phone: [facility] 07-23-2024 00:03-0400 Diastolic blood pressure 81 mm[Hg] Dr. Charla Wadsworth MD Work Phone: [facility] 07-23-2024 00:03-0400 Heart rate 61 /min Dr. Charla Wadsworth MD Work Phone: [facility] 07-23-2024 00:03-0400 Respiratory rate 18 /min Dr. Charla Wadsworth MD Work Phone: [facility] 07-23-2024 00:03-0400 SaO2% (BldA) [Mass fraction] 93 % Dr. Charla Wadsworth MD Work Phone: [facility] 07-23-2024 00:03-0400 Systolic blood pressure 130 mm[Hg] Dr. Charla Wadsworth MD Work Phone: [facility] 07-22-2024 20:15-0400 Body height 157.[address] Charla Wadsworth MD Work Phone: [facility] 07-22-2024 20:15-0400 Body mass index (BMI) [Ratio] 19.7 kg/m2 Dr. Charla Wadsworth MD Work Phone: [facility] 07-22-2024 20:15-0400 Body weight 48.[address] Charla Wadsworth MD Work Phone: [facility] 07-22-2024 10:08-0400 Body temperature 97.5 [degF] Dr. Charla Wadsworth MD Work Phone: [facility] 07-22-2024 10:08-0400 Diastolic blood pressure 68 mm[Hg] Dr. Charla Wadsworth MD Work Phone: [facility] 07-22-2024 10:08-0400 Heart rate 60 /min Dr. Charla Wadsworth MD Work Phone: [facility] 07-22-2024 10:08-0400 Respiratory rate 14 /min Dr. Charla Wadsworth MD Work Phone: [facility] 07-22-2024 10:08-0400 SaO2% (BldA) [Mass fraction] 96 % Dr. Charla Wadsworth MD Work Phone: [facility] 07-22-2024 10:08-0400 Systolic blood pressure 110 mm[Hg] Dr. Charla Wadsworth MD Work Phone: [facility] 07-02-2024 23:25-0400 Body temperature 98.2 [degF] Dr. Charla Wadsworth MD Work Phone: [facility] 07-02-2024 23:25-0400 Diastolic blood pressure 68 mm[Hg] Dr. Charla Wadsworth MD Work Phone: [facility] 07-02-2024 23:25-0400 Heart rate 72 /min Dr. Charla Wadsworth MD Work Phone: [facility] 07-02-2024 23:25-0400 Respiratory rate 14 /min Dr. Charla Wadsworth MD Work Phone: [facility] 07-02-2024 23:25-0400 SaO2% (BldA) [Mass fraction] 96 % Dr. Charla Wadsworth MD Work Phone: [facility] 07-02-2024 23:25-0400 Systolic blood pressure 116 mm[Hg] Dr. Charla Wadsworth MD Work Phone: [facility] 07-02-2024 14:28-0400 Body height 157.[address] Charla Wadsworth MD Work Phone: [facility] 07-02-2024 14:28-0400 Body mass index (BMI) [Ratio] 42.6 kg/m2 Dr. Charla Wadsworth MD Work Phone: [facility] 07-02-2024 14:28-0400 Body weight 105.[address] Charla Wadsworth MD Work Phone: [facility] 06-29-2024 19:11-0400 Body temperature 98.1 [degF] Dr. Charla Wadsworth MD Work Phone: [facility] 06-29-2024 19:11-0400 Diastolic blood pressure 68 mm[Hg] Dr. Charla Wadsworth MD Work Phone: [facility] 06-29-2024 19:11-0400 Heart rate 75 /min Dr. Charla Wadsworth MD Work Phone: [facility] 06-29-2024 19:11-0400 Respiratory rate 18 /min Dr. Charla Wadsworth MD Work Phone: [facility] 06-29-2024 19:11-0400 SaO2% (BldA) [Mass fraction] 97 % Dr. Charla Wadsworth MD Work Phone: [facility] 06-29-2024 19:11-0400 Systolic blood pressure 104 mm[Hg] Dr. Charla Wadsworth MD Work Phone: [facility] 06-29-2024 17:28-0400 Body height 157.[address] Charla Wadsworth MD Work Phone: [facility] 06-29-2024 17:28-0400 Body mass index (BMI) [Ratio] 43.8 kg/m2 Dr. Charla Wadsworth MD Work Phone: [facility] 06-29-2024 17:28-0400 Body weight 108.[address] Charla Wadsworth MD Work Phone: [facility] 06-13-2024 19:51-0400 Body temperature 97.2 [degF] Dr. Charla Wadsworth MD Work Phone: [facility] 06-13-2024 19:51-0400 Diastolic blood pressure 79 mm[Hg] Dr. Charla Wadsworth MD Work Phone: [facility] 06-13-2024 19:51-0400 Heart rate 68 /min Dr. Charla Wadsworth MD Work Phone: [facility] 06-13-2024 19:51-0400 Respiratory rate 25 /min Dr. Charla Wadsworth MD Work Phone: [facility] 06-13-2024 19:51-0400 SaO2% (BldA) [Mass fraction] 94 % Dr. Charla Wadsworth MD Work Phone: [facility] 06-13-2024 19:51-0400 Systolic blood pressure 144 mm[Hg] Dr. Charla Wadsworth MD Work Phone: [facility] 06-13-2024 18:31-0400 Body height 157.[address] Charla Wadsworth MD Work Phone: [facility] 06-13-2024 18:31-0400 Body mass index (BMI) [Ratio] 41.8 kg/m2 Dr. Charla Wadsworth MD Work Phone: [facility] 06-13-2024 18:31-0400 Body weight 103.[address] Charla Wadsworth MD Work Phone: [facility] 06-11-2024 07:46-0400 Body mass index (BMI) [Ratio] 36.6 kg/m2 Dr. Charla Wadsworth MD Work Phone: [facility] 06-11-2024 07:46-0400 Body weight 90.[address] Charla Wadsworth MD Work Phone: [facility] 06-11-2024 07:46-0400 Diastolic blood pressure 66 mm[Hg] Dr. Charla Wadsworth MD Work Phone: [facility] 06-11-2024 07:46-0400 Heart rate 60 /min Dr. Charla Wadsworth MD Work Phone: [facility] 06-11-2024 07:46-0400 Respiratory rate 18 /min Dr. Charla Wadsworth MD Work Phone: [facility] 06-11-2024 07:46-0400 Systolic blood pressure 102 mm[Hg] Dr. Charla Wadsworth MD Work Phone: [facility] 05-21-2024 23:25-0400 Body temperature 98 [degF] Dr. Charla Wadsworth MD Work Phone: [facility] 05-21-2024 23:25-0400 Diastolic blood pressure 74 mm[Hg] Dr. Charla Wadsworth MD Work Phone: [facility] 05-21-2024 23:25-0400 Heart rate 68 /min Dr. Charla Wadsworth MD Work Phone: [facility] 05-21-2024 23:25-0400 Respiratory rate 17 /min Dr. Charla Wadsworth MD Work Phone: [facility] 05-21-2024 23:25-0400 SaO2% (BldA) [Mass fraction] 97 % Dr. Charla Wadsworth MD Work Phone: [facility] 05-21-2024 23:25-0400 Systolic blood pressure 130 mm[Hg] Dr. Charla Wadsworth MD Work Phone: [facility] 05-21-2024 19:24-0400 Body height 157.[address] Charla Wadsworth MD Work Phone: [facility] 05-13-2024 03:00-0500 Diastolic blood pressure 67 mm[Hg] Dr. Charla Wadsworth MD Work Phone: [facility] 05-13-2024 03:00-0500 Heart rate 61 /min Dr. Charla Wadsworth MD Work Phone: [facility] 05-13-2024 03:00-0500 Respiratory rate 16 /min Dr. Charla Wadsworth MD Work Phone: [facility] 05-13-2024 03:00-0500 SaO2% (BldA) [Mass fraction] 96 % Dr. Charla Wadsworth MD Work Phone: [facility] 05-13-2024 03:00-0500 Systolic blood pressure 122 mm[Hg] Dr. Charla Wadsworth MD Work Phone: [facility] 05-13-2024 01:00-0500 Body temperature 98.2 [degF] Dr. Charla Wadsworth MD Work Phone: [facility] 05-12-2024 22:20-0500 Body mass index (BMI) [Ratio] 43.2 kg/m2 Dr. Charla Wadsworth MD Work Phone: [facility] 05-12-2024 22:20-0500 Body weight 107.[address] Charla Wadsworth MD Work Phone: [facility] 05-04-2024 15:55-0500 Body temperature 98.4 [degF] Dr. Charla Wadsworth MD Work Phone: [facility] 05-04-2024 15:55-0500 Diastolic blood pressure 71 mm[Hg] Dr. Charla Wadsworth MD Work Phone: [facility] 05-04-2024 15:55-0500 Heart rate 65 /min Dr. Charla Wadsworth MD Work Phone: [facility] 05-04-2024 15:55-0500 Respiratory rate 16 /min Dr. Charla Wadsworth MD Work Phone: [facility] 05-04-2024 15:55-0500 SaO2% (BldA) [Mass fraction] 98 % Dr. Charla Wadsworth MD Work Phone: [facility] 05-04-2024 15:55-0500 Systolic blood pressure 109 mm[Hg] Dr. Charla Wadsworth MD Work Phone: [facility] 05-04-2024 14:30-0500 Body mass index (BMI) [Ratio] 40.8 kg/m2 Dr. Charla Wadsworth MD Work Phone: [facility] 05-04-2024 14:30-0500 Body weight 101.[address] Charla Wadsworth MD Work Phone: [facility] 04-20-2024 10:21-0500 Body temperature 98 [degF] Dr. Charla Wadsworth MD Work Phone: [facility] 04-20-2024 10:21-0500 Diastolic blood pressure 78 mm[Hg] Dr. Charla Wadsworth MD Work Phone: [facility] 04-20-2024 10:21-0500 Heart rate 62 /min Dr. Charla Wadsworth MD Work Phone: [facility] 04-20-2024 10:21-0500 Respiratory rate 17 /min Dr. Charla Wadsworth MD Work Phone: [facility] 04-20-2024 10:21-0500 SaO2% (BldA) [Mass fraction] 95 % Dr. Charla Wadsworth MD Work Phone: [facility] 04-20-2024 10:21-0500 Systolic blood pressure 122 mm[Hg] Dr. Charla Wadsworth MD Work Phone: [facility] 04-15-2024 19:43-0500 Body mass index (BMI) [Ratio] 40.3 kg/m2 Dr. Charla Wadsworth MD Work Phone: [facility] 04-15-2024 19:43-0500 Body weight [address] Charla Wadsworth MD Work Phone: [facility] 04-15-2024 17:28-0500 Body temperature 97.9 [degF] Dr. Charla Wadsworth MD Work Phone: [facility] 04-15-2024 17:28-0500 Diastolic blood pressure 88 mm[Hg] Dr. Charla Wadsworth MD Work Phone: [facility] 04-15-2024 17:28-0500 Heart rate 72 /min Dr. Charla Wadsworth MD Work Phone: [facility] 04-15-2024 17:28-0500 Respiratory rate 18 /min Dr. Charla Wadsworth MD Work Phone: [facility] 04-15-2024 17:28-0500 SaO2% (BldA) [Mass fraction] 99 % Dr. Charla Wadsworth MD Work Phone: [facility] 04-15-2024 17:28-0500 Systolic blood pressure 135 mm[Hg] Dr. Charla Wadsworth MD Work Phone: [facility] 04-05-2024 10:05-0500 Inhaled oxygen flow rate 2 L/min Dr. Charla Wadsworth MD Work Phone: [facility] 04-05-2024 10:05-0500 SaO2% (BldA) [Mass fraction] 93 % Dr. Charla Wadsworth MD Work Phone: [facility] 04-05-2024 10:00-0500 Heart rate 91 /min Dr. Charla Wadsworth MD Work Phone: [facility] 04-05-2024 10:00-0500 Respiratory rate 18 /min Dr. Charla Wadsworth MD Work Phone: [facility] 04-05-2024 09:36-0500 Body temperature 98.1 [degF] Dr. Charla Wadsworth MD Work Phone: [facility] 04-05-2024 09:36-0500 Diastolic blood pressure 75 mm[Hg] Dr. Charla Wadsworth MD Work Phone: [facility] 04-05-2024 09:36-0500 Systolic blood pressure 130 mm[Hg] Dr. Charla Wadsworth MD Work Phone: [facility] 04-04-2024 10:11-0500 Body weight 101.[address] Charla Wadsworth MD Work Phone: [facility] 04-03-2024 18:49-0500 Body mass index (BMI) [Ratio] 40.9 kg/m2 Dr. Charla Wadsworth MD Work Phone: [facility] 01-27-2024 10:47-0500 Body temperature 97.8 [degF] Dr. Charla Wadsworth MD Work Phone: [facility] 01-27-2024 10:47-0500 Diastolic blood pressure 58 mm[Hg] Dr. Charla Wadsworth MD Work Phone: [facility] 01-27-2024 10:47-0500 Heart rate 60 /min Dr. Charla Wadsworth MD Work Phone: [facility] 01-27-2024 10:47-0500 Respiratory rate 14 /min Dr. Charla Wadsworth MD Work Phone: [facility] 01-27-2024 10:47-0500 SaO2% (BldA) [Mass fraction] 94 % Dr. Charla Wadsworth MD Work Phone: [facility] 01-27-2024 10:47-0500 Systolic blood pressure 106 mm[Hg] Dr. Charla Wadsworth MD Work Phone: [facility] 07-12-2023 03:22-0400 Body temperature 97.6 [degF] Dr. Charla Wadsworth Work Phone: [facility] 07-12-2023 03:22-0400 Diastolic blood pressure 66 mm[Hg] Dr. Charla Wadsworth Work Phone: [facility] 07-12-2023 03:22-0400 Heart rate 64 /min Dr. Charla Wadsworth Work Phone: [facility] 07-12-2023 03:22-0400 Respiratory rate 16 /min Dr. Charla Wadsworth Work Phone: [facility] 07-12-2023 03:22-0400 SaO2% (BldA) [Mass fraction] 99 % Dr. Charla Wadsworth Work Phone: [facility] 07-12-2023 03:22-0400 Systolic blood pressure 124 mm[Hg] Dr. Charla Wadsworth Work Phone: [facility] 07-12-2023 00:38-0400 Body height 157.[address] Charla Wadsworth Work Phone: [facility] 07-12-2023 00:38-0400 Body mass index (BMI) [Ratio] 37 kg/m2 Dr. Charla Wadsworth Work Phone: [facility] 07-12-2023 00:38-0400 Body weight 91.[address] Charla Wadsworth Work Phone: [facility] 05-24-2023 20:18-0400 Body mass index (BMI) [Ratio] 0 kg/m2 Dr. Charla Wadsworth Work Phone: [facility] 05-24-2023 20:18-0400 Body weight [address] Charla Wadsworth Work Phone: [facility] 05-24-2023 15:44-0400 Body height 157.[address] Charla Wadsworth Work Phone: [facility] 05-24-2023 15:44-0400 Body temperature 98.4 [degF] Dr. Charla Wadsworth Work Phone: [facility] 05-24-2023 15:44-0400 Diastolic blood pressure 73 mm[Hg] Dr. Charla Wadsworth Work Phone: [facility] 05-24-2023 15:44-0400 Heart rate 56 /min Dr. Charla Wadsworth Work Phone: [facility] 05-24-2023 15:44-0400 Respiratory rate 16 /min Dr. Charla Wadsworth Work Phone: [facility] 05-24-2023 15:44-0400 SaO2% (BldA) [Mass fraction] 97 % Dr. Charla Wadsworth Work Phone: [facility] 05-24-2023 15:44-0400 Systolic blood pressure 110 mm[Hg] Dr. Charla Wadsworth Work Phone: [facility] 03-26-2023 13:08-0500 Body mass index (BMI) [Ratio] 33.7 kg/m2 Dr. Charla Wadsworth Work Phone: [facility] 03-26-2023 13:08-0500 Body temperature 97.5 [degF] Dr. Charla Wadsworth Work Phone: [facility] 03-26-2023 13:08-0500 Body weight 83.[address] Charla Wadsworth Work Phone: [facility] 03-26-2023 13:08-0500 Diastolic blood pressure 62 mm[Hg] Dr. Charla Wadsworth Work Phone: [facility] 03-26-2023 13:08-0500 Heart rate 57 /min Dr. Charla Wadsworth Work Phone: [facility] 03-26-2023 13:08-0500 Respiratory rate 16 /min Dr. Charla Wadsworth Work Phone: [facility] 03-26-2023 13:08-0500 SaO2% (BldA) [Mass fraction] 97 % Dr. Charla Wadsworth Work Phone: [facility] 03-26-2023 13:08-0500 Systolic blood pressure 118 mm[Hg] Dr. Charla Wadsworth Work Phone: [facility] 02-14-2023 08:44-0500 Body mass index (BMI) [Ratio] 33.3 kg/m2 Dr. Charla Wadsworth Work Phone: [facility] 02-14-2023 08:44-0500 Body weight 82.[address] Charla Wadsworth Work Phone: [facility] 02-14-2023 08:44-0500 Diastolic blood pressure 84 mm[Hg] Dr. Charla Wadsworth Work Phone: [facility] 02-14-2023 08:44-0500 Heart rate 60 /min Dr. Charla Wasdworth Work Phone: [facility] 02-14-2023 08:44-0500 Respiratory rate 18 /min Dr. Charla Wadsworth Work Phone: [facility] 02-14-2023 08:44-0500 SaO2% (BldA) [Mass fraction] 96 % Dr. Charla Wadsworth Work Phone: [facility] 02-14-2023 08:44-0500 Systolic blood pressure 119 mm[Hg] Dr. Charla Wadsworth Work Phone: [facility] 01-30-2023 10:03-0500 Body height 157.[address] Charla Wadsworth Work Phone: [facility] 01-30-2023 10:03-0500 Body mass index (BMI) [Ratio] 33.5 kg/m2 Dr. Charla Wadsworth Work Phone: [facility] 01-30-2023 10:03-0500 Body temperature 98 [degF] Dr. Charla Wadsworth Work Phone: [facility] 01-30-2023 10:03-0500 Body weight [address] Charla Wadsworth Work Phone: [facility] 01-30-2023 10:03-0500 Diastolic blood pressure 74 mm[Hg] Dr. Charla Wadsworth Work Phone: [facility] 01-30-2023 10:03-0500 Heart rate 71 /min Dr. Charla Wadsworth Work Phone: [facility] 01-30-2023 10:03-0500 Respiratory rate 16 /min Dr. Charla Wadsworth Work Phone: [facility] 01-30-2023 10:03-0500 SaO2% (BldA) [Mass fraction] 97 % Dr. Charla Wadsworth Work Phone: [facility] 01-30-2023 10:03-0500 Systolic blood pressure 138 mm[Hg] Dr. Charla Wadsworth Work Phone: [facility] 12-03-2022 23:00-0400 Diastolic blood pressure 72 mm[Hg] Dr. Charla Wadsworth Work Phone: [facility] 12-03-2022 23:00-0400 Systolic blood pressure 148 mm[Hg] Dr. Charla Wadsworth Work Phone: [facility] 12-03-2022 22:00-0400 Respiratory rate 16 /min Dr. Charla Wadsworth Work Phone: [facility] 12-03-2022 16:27-0400 Body height 157.[address] Charla Wadsworth Work Phone: [facility] 12-03-2022 16:27-0400 Body mass index (BMI) [Ratio] 33.9 kg/m2 Dr. Charla Wadsworth Work Phone: [facility] 12-03-2022 16:27-0400 Body temperature 97.6 [degF] Dr. Charla Wadsworth Work Phone: [facility] 12-03-2022 16:27-0400 Body weight 84.[address] Charla Wadsworth Work Phone: [facility] 12-03-2022 16:27-0400 Heart rate 53 /min Dr. Charla Wadsworth Work Phone: [facility] 12-03-2022 16:27-0400 SaO2% (BldA) [Mass fraction] 98 % Dr. Charla Wadsworth Work Phone: [facility] 11-24-2022 20:23-0400 Body height 157.[address] Charla Wadsworth Work Phone: [facility] 11-24-2022 20:23-0400 Body mass index (BMI) [Ratio] 34.2 kg/m2 Dr. Charla Wadsworth Work Phone: [facility] 11-24-2022 20:23-0400 Body temperature 96 [degF] Dr. Charla Wadsworth Work Phone: [facility] 11-24-2022 20:23-0400 Body weight [address] Charla Wadsworth Work Phone: [facility] 11-24-2022 20:23-0400 Diastolic blood pressure 77 mm[Hg] Dr. Charla Wadsworth Work Phone: [facility] 11-24-2022 20:23-0400 Heart rate 74 /min Dr. Charla Wadsworth Work Phone: [facility] 11-24-2022 20:23-0400 Respiratory rate 16 /min Dr. Charla Wadsworth Work Phone: [facility] 11-24-2022 20:23-0400 SaO2% (BldA) [Mass fraction] 96 % Dr. Charla Wadsworth Work Phone: [facility] 11-24-2022 20:23-0400 Systolic blood pressure 122 mm[Hg] Dr. Charla Wadsworth Work Phone: [facility] 11-15-2022 12:21-0400 Body height 157.[address] Charla Wadsworth Work Phone: [facility] 11-15-2022 12:21-0400 Body temperature 96.9 [degF] Dr. Charla Wadsworth Work Phone: [facility] 11-15-2022 12:21-0400 Diastolic blood pressure 83 mm[Hg] Dr. Charla Wadsworth Work Phone: [facility] 11-15-2022 12:21-0400 Heart rate 63 /min Dr. Charla Wadsworth Work Phone: [facility] 11-15-2022 12:21-0400 Respiratory rate 18 /min Dr. Charla Wadsworth Work Phone: [facility] 11-15-2022 12:21-0400 SaO2% (BldA) [Mass fraction] 99 % Dr. Charla Wadsworth Work Phone: [facility] 11-15-2022 12:21-0400 Systolic blood pressure 104 mm[Hg] Dr. Charla Wadsworth Work Phone: [facility] 11-13-2022 21:04-0400 Body height 157.[address] Charla Wadsworth Work Phone: [facility] 11-13-2022 21:04-0400 Body mass index (BMI) [Ratio] 33.3 kg/m2 Dr. Charla Wadsworth Work Phone: [facility] 11-13-2022 21:04-0400 Body temperature 97.5 [degF] Dr. Charla Wadsworth Work Phone: [facility] 11-13-2022 21:04-0400 Body weight 82.[address] Charla Wadsworth Work Phone: [facility] 11-13-2022 21:04-0400 Diastolic blood pressure 90 mm[Hg] Dr. Charla Wadsworth Work Phone: [facility] 11-13-2022 21:04-0400 Heart rate 86 /min Dr. Charla Wadsworth Work Phone: [facility] 11-13-2022 21:04-0400 Respiratory rate 15 /min Dr. Charla Wadsworth Work Phone: [facility] 11-13-2022 21:04-0400 SaO2% (BldA) [Mass fraction] 97 % Dr. Charla Wadsworth Work Phone: [facility] 11-13-2022 21:04-0400 Systolic blood pressure 127 mm[Hg] Dr. Charla Wadsworth Work Phone: [facility] 08-28-2022 13:17-0400 Body mass index (BMI) [Ratio] 34.7 kg/m2 Dr. Charla Wadsworth Work Phone: [facility] 08-28-2022 13:17-0400 Body weight 86.[address] Charla Wadsworth Work Phone: [facility] 08-28-2022 13:17-0400 Diastolic blood pressure 66 mm[Hg] Dr. Charla Wadsworth Work Phone: [facility] 08-28-2022 13:17-0400 Heart rate 54 /min Dr. Charla Wadsworth Work Phone: [facility] 08-28-2022 13:17-0400 Respiratory rate 20 /min Dr. Charla Wadsworth Work Phone: [facility] 08-28-2022 13:17-0400 SaO2% (BldA) [Mass fraction] 95 % Dr. Charla Wadsworth Work Phone: [facility] 08-28-2022 13:17-0400 Systolic blood pressure 102 mm[Hg] Dr. Charla Wadsworth Work Phone: [facility] 05-16-2022 08:03-0500 Body height 157.[address] Charla Wadsworth Work Phone: [facility] 05-16-2022 08:03-0500 Body mass index (BMI) [Ratio] 34.2 kg/m2 Dr. Charla Wadsworth Work Phone: [facility] 05-16-2022 08:03-0500 Body temperature 98.4 [degF] Dr. Charla Wadsworth Work Phone: [facility] 05-16-2022 08:03-0500 Body weight 84.[address] Charla Wadsworth Work Phone: [facility] 05-16-2022 08:03-0500 Diastolic blood pressure 82 mm[Hg] Dr. Charla Wadsworth Work Phone: [facility] 05-16-2022 08:03-0500 Heart rate 60 /min Dr. Charla Wadsworth Work Phone: [facility] 05-16-2022 08:03-0500 Respiratory rate 14 /min Dr. Charla Wadsworth Work Phone: [facility] 05-16-2022 08:03-0500 SaO2% (BldA) [Mass fraction] 95 % Dr. Charla Wadsworth Work Phone: [facility] 05-16-2022 08:03-0500 Systolic blood pressure 130 mm[Hg] Dr. Charla Wadsworth Work Phone: [facility] 01-22-2022 15:31-0500 Body height 158.[address] Charla Wadsworth Work Phone: [facility] Work Phone: 01-22-2022 15:31-0500 Body mass index (BMI) [Ratio] 35.4 kg/m2 Dr. Charla Wadsworth Work Phone: [facility] 01-22-2022 15:31-0500 Body weight 89.[address] Charla Wadsworth Work Phone: [facility] 01-22-2022 15:31-0500 Diastolic blood pressure 74 mm[Hg] Dr. Charla Wadsworth Work Phone: [facility] 01-22-2022 15:31-0500 Heart rate 59 /min Dr. Charla Wadsworth Work Phone: [facility] 01-22-2022 15:31-0500 Respiratory rate 18 /min Dr. Charla Wadsworth Work Phone: [facility] 01-22-2022 15:31-0500 SaO2% (BldA) [Mass fraction] 96 % Dr. Charla Wadsworth Work Phone: [facility] 01-22-2022 15:31-0500 Systolic blood pressure 113 mm[Hg] Dr. Charla Wadsworth Work Phone: [facility] 01-22-2022 14:37-0500 Body mass index (BMI) [Ratio] 36.1 kg/m2 Dr. Charla Wadsworth Work Phone: [facility] 01-22-2022 14:37-0500 Body temperature 97 [degF] Dr. Charla Wadsworth Work Phone: [facility] 01-22-2022 14:37-0500 Body weight 91.[address] Charla Wadsworth Work Phone: [facility] 01-22-2022 14:37-0500 Diastolic blood pressure 73 mm[Hg] Dr. Charla Wadsworth Work Phone: [facility] 01-22-2022 14:37-0500 Heart rate 59 /min Dr. Charla Wadsworth Work Phone: [facility] 01-22-2022 14:37-0500 Respiratory rate 16 /min Dr. Charla Wadsworth Work Phone: [facility] 01-22-2022 14:37-0500 SaO2% (BldA) [Mass fraction] 94 % Dr. Charla Wadsworth Work Phone: [facility] 01-22-2022 14:37-0500 Systolic blood pressure 121 mm[Hg] Dr. Charla Wadsworth Work Phone: [facility] 11-03-2021 14:42-0400 Body height 158.[address] Charla Wadsworth Work Phone: [facility] Work Phone: 11-03-2021 14:42-0400 Body mass index (BMI) [Ratio] 35.8 kg/m2 Dr. Charla Wadsworth Work Phone: [facility] Work Phone: 11-03-2021 14:42-0400 Body temperature 96.4 [degF] Dr. Charla Wadsworth Work Phone: [facility] Work Phone: 11-03-2021 14:42-0400 Body weight 90.[address] Charla Wadsworth Work Phone: [facility] Work Phone: 11-03-2021 14:42-0400 Diastolic blood pressure 66 mm[Hg] Dr. Charla Wadsworth Work Phone: [facility] Work Phone: 11-03-2021 14:42-0400 Heart rate 52 /min Dr. Charla Wadsworth Work Phone: [facility] Work Phone: 11-03-2021 14:42-0400 Respiratory rate 16 /min Dr. Charla Wadsworth Work Phone: [facility] Work Phone: 11-03-2021 14:42-0400 SaO2% (BldA) [Mass fraction] 96 % Dr. Charla Wadsworth Work Phone: [facility] Work Phone: 11-03-2021 14:42-0400 Systolic blood pressure 110 mm[Hg] Dr. Charla Wadsworth Work Phone: [facility] Work Phone: 10-25-2021 11:54-0400 Body temperature 98.4 [degF] Dr. Charla Wadsworth Work Phone: [facility] Work Phone: 10-25-2021 11:54-0400 Diastolic blood pressure 88 mm[Hg] Dr. Charla Wadsworth Work Phone: [facility] Work Phone: 10-25-2021 11:54-0400 Heart rate 59 /min Dr. Charla Wadsworth Work Phone: [facility] Work Phone: 10-25-2021 11:54-0400 Respiratory rate 18 /min Dr. Charla Wadsworth Work Phone: [facility] Work Phone: 10-25-2021 11:54-0400 SaO2% (BldA) [Mass fraction] 96 % Dr. Charla Wadsworth Work Phone: [facility] Work Phone: 10-25-2021 11:54-0400 Systolic blood pressure 173 mm[Hg] Dr. Charla Wadsworth Work Phone: [facility] Work Phone: 10-24-2021 11:14-0400 Body weight 92.[address] Charla Wadsworth Work Phone: [facility] Work Phone: 10-23-2021 14:55-0400 Body mass index (BMI) [Ratio] 36.6 kg/m2 Dr. Charla Wadsworth Work Phone: [facility] Work Phone: 10-22-2021 20:50-0400 Diastolic blood pressure 94 mm[Hg] Dr. Charla Wadsworth Work Phone: [facility] Work Phone: 10-22-2021 20:50-0400 Systolic blood pressure 155 mm[Hg] Dr. Charla Wadsworth Work Phone: [facility] Work Phone: 10-22-2021 15:32-0400 Body temperature 97.1 [degF] Dr. Charla Wadsworth Work Phone: [facility] Work Phone: 10-22-2021 15:32-0400 Heart rate 71 /min Dr. Charla Wadsworth Work Phone: [facility] Work Phone: 10-22-2021 15:32-0400 Respiratory rate 18 /min Dr. Charla Wadsworth Work Phone: [facility] Work Phone: 10-22-2021 15:32-0400 SaO2% (BldA) [Mass fraction] 97 % Dr. Charal Wadsworth Work Phone: [facility] Work Phone: 10-22-2021 15:29-0400 Body height 157.[address] Charla Wadsworth Work Phone: [facility] Work Phone: 10-22-2021 15:29-0400 Body mass index (BMI) [Ratio] 42 kg/m2 Dr. Charla Wadsworth Work Phone: [facility] Work Phone: 10-22-2021 15:29-0400 Body weight 104.[address] Charla Wadsworth Work Phone: [facility] Work Phone: 08-17-2021 11:41-0400 Body height 152.[address] Charla Wadsworth Work Phone: [facility] Work Phone: 08-17-2021 11:41-0400 Body weight 95.[address] Charla Wadsworth Work Phone: [facility] Work Phone: 08-16-2021 10:02-0400 Body mass index (BMI) [Ratio] 41.2 kg/m2 Dr. Charla Wadsworth Work Phone: [facility] Work Phone: 08-15-2021 08:18-0400 Body mass index (BMI) [Ratio] 41.2 kg/m2 Dr. Charla Wadsworth Work Phone: [facility] Work Phone: 08-15-2021 08:18-0400 Body weight 95.[address] Charla Wadsworth Work Phone: [facility] Work Phone: 08-15-2021 08:18-0400 Diastolic blood pressure 75 mm[Hg] Dr. Charla Wadsworth Work Phone: [facility] Work Phone: 08-15-2021 08:18-0400 Heart rate 64 /min Dr. Chrala Wadsworth Work Phone: [facility] Work Phone: 08-15-2021 08:18-0400 Respiratory rate 16 /min Dr. Charla Wadsworth Work Phone: [facility] Work Phone: 08-15-2021 08:18-0400 SaO2% (BldA) [Mass fraction] 94 % Dr. Charla Wadsworth Work Phone: [facility] Work Phone: 08-15-2021 08:18-0400 Systolic blood pressure 120 mm[Hg] Dr. Charla Wadsworth Work Phone: [facility] Work Phone: 08-15-2021 08:18-0400 Body mass index (BMI) [Ratio] 41.2 kg/m2 Dr. Charla Wadsworth Work Phone: [facility] Work Phone: 08-15-2021 08:18-0400 Body weight 95.[address] Charla Wadsworth Work Phone: [facility] Work Phone: 08-15-2021 08:18-0400 Diastolic blood pressure 75 mm[Hg] Dr. Charla Wadsworth Work Phone: [facility] Work Phone: 08-15-2021 08:18-0400 Heart rate 64 /min Dr. Charla Wadsworth Work Phone: [facility] Work Phone: 08-15-2021 08:18-0400 Respiratory rate 16 /min Dr. Charla Wadsworth Work Phone: [facility] Work Phone: 08-15-2021 08:18-0400 SaO2% (BldA) [Mass fraction] 94 % Dr. Charla Wadsworth Work Phone: [facility] Work Phone: 08-15-2021 08:18-0400 Systolic blood pressure 120 mm[Hg] Dr. Charla Wadsworth Work Phone: [facility] Work Phone: 08-05-2020 08:56-0400 Body mass index (BMI) [Ratio] 35 kg/m2 Dr. Charla Wadsworth Work Phone: [facility] Work Phone: Encounters Encounter Date Encounter Type Care Provider Facility Start: 10-10-2024 End: 10-10-2024 Dr. Charla Wadsworth MD Work Phone: -Emergency Department Work Phone: Start: 10-10-2024 End: 10-10-2024 Emergency department patient visit Dr. Charla Wadsworth MD Work Phone: -Emergency Department Start: 10-05-2024 ambulatory Charla Kunz ty:[facility] Start: 10-02-2024 End: 10-02-2024 Janeth PINEDA -[facility] Work Phone: Start: 10-02-2024 End: 10-02-[address] Charla Wadsworth MD Work Phone: -[facility] Start: 09-14-2024 ambulatory Charla Kunz ty:[facility] Start: 08-17-2024 End: 08-17-[address] Charla Wadsworth MD Work Phone: [facility] Work Phone: Start: 08-17-2024 End: 08-17-2024 Dr. Samuel Keys MD -[facility] Work Phone: Start: 08-10-2024 End: 2024 Telephone encounter Butch Mays MD Work Phone: [facility] Comment on above: Appointment Start: 08-05-2024 End: 08-05-2024 Patient encounter procedure Butch Mays MD Work Phone: [facility] Comment on above: Weakness of both low er extremities (Primary Dx); Obesity, Class III, BMI 40-49.9 (morbid obesity) Start: 08-05-2024 End: 08-05-2024 ambulatory BUTCH MAYS Facility:[id number] Start: 08-04-2024 End: 08-04-2024 ambulatory NACHO DUNN Facility:[facility] Start: 08-04-2024 End: 08-04-2024 Subsequent hospital visit by physician [facility] Comment on above: Arrived Spinal stenosis of c ervical region [M48.02] Start: 07-22-2024 End: 07-23-2024 Dr. Charla Wadsworth MD Work Phone: -Emergency Department Work Phone: Start: 07-22-2024 End: 07-23-2024 Emergency department patient visit Dr. Charla Wadsworth MD Work Phone: [facility] Work Phone: Start: 07-22-2024 End: 07-22-2024 Dr. Charla Wadsworth MD -[facility] Work Phone: Start: 07-22-2024 End: 07-22-[address] Charla Wadsworth MD Work Phone: [facility] Work Phone: Start: 07-13-2024 End: 07-13-2024 Telephone encounter Butch Mays MD Work Phone: [facility] Comment on above: Orders (Received mes joanne form Dr. Mays that he would like MRI's ordered as STAT) Start: 07-07-2024 End: 07-07-2024 Orders Only Butch Mays MD Work Phone: [facility] Comment on above: Spinal stenosis of c ervical region (Primary Dx); Thoracic myelopathy Start: 07-06-2024 ambulatory Kareen Bradshaw [employer] Facili ty:[facility] Start: 07-03-2024 End: 07-04-2024 Evaluation and management of inpatient REMUS Pamela HUDDLESTON Facility:[facility] Start: 07-02-2024 End: 07-03-2024 Dr. Charla Wadsworth MD Work Phone: -Emergency Department Work Phone: Start: 07-02-2024 End: 07-03-2024 Emergency department patient visit Dr. Charla Wadsworth MD Work Phone: [facility] Work Phone: Start: 07-01-[address] GEE MERCHANT MD Facility: Start: 06-29-2024 End: 06-29-2024 Dr. Charla Wadsworth MD Work Phone: -Emergency Department Work Phone: Start: 06-29-2024 End: 06-29-2024 Emergency department patient visit Dr. Charla Wadsworth MD Work Phone: [facility] Work Phone: Start: 06-29-2024 Kareen Bradshaw [employer]-C -[facility] Work Phone: Start: 06-29-2024 ambulatory Kareen Bradshaw [employer] Facili ty:[facility] Start: 06-26-2024 End: 06-26-[address] Charla Wadsworth MD Work Phone: [facility] Work Phone: Start: 06-26-2024 End: 06-26-2024 Dr. Keon France MD -[facility] Start: 06-26-2024 End: 06-26-2024 ambulatory Kareen Bradshaw NP Facility:[facility] Start: 06-13-2024 End: 06-13-2024 Dr. Charla Wadsworth MD Work Phone: -Emergency Department Work Phone: Start: 06-13-2024 End: 06-13-2024 Emergency department patient visit Dr. Charla Wadsworth MD Work Phone: [facility] Work Phone: Start: 06-11-2024 End: 06-11-2024 Kareen Bradshaw [employer]-C -Laboratory Work Phone: Start: 06-11-2024 End: 06-11-[address] Charla Wadsworth MD Work Phone: [facility] Work Phone: Start: 06-11-2024 End: 06-11-2024 Imelda Hernandez -[facility] Work Phone: Start: 06-11-2024 End: 06-11-2024 ambulatory Kareen Bradshaw NP Facility:[facility] Start: 05-21-2024 End: 05-22-2024 Dr. Charla Wadsworth MD Work Phone: -Emergency Department Work Phone: Start: 05-21-2024 End: 05-22-2024 Emergency department patient visit Dr. Charla Wadsworth MD Work Phone: [facility] Work Phone: Start: 05-18-2024 End: 05-18-2024 ambulatory Samuel Keys Facility:[facility] Start: 05-18-2024 End: 05-18-2024 Dr. Samuel Keys MD -[facility] Work Phone: Start: 05-12-2024 End: 05-13-2024 Dr. Charla Wadsworth MD Work Phone: -Emergency Department Work Phone: Start: 05-12-2024 End: 05-13-2024 Emergency department patient visit Panda Rowe Facility:[facility] Start: 05-04-2024 ambulatory Keon France Facility:[facility] Start: 05-04-2024 End: 05-04-2024 [facility] Start: 05-04-2024 End: 05-04-2024 Emergency department patient visit Charla Wadsworth Facility:[facility] Start: 04-21-2024 Dr. Charla Wadsworth MD -[facility] Start: 04-21-2024 ambulatory Efewurmilabe Oleghe Facili ty:[facility] Start: 04-20-2024 End: 04-20-2024 Dr. Charla Wadsworth MD -Laboratory, [facility] Start: 04-20-2024 End: 04-20-2024 Dr. Charla Wadsworth MD -[facility] Work Phone: Start: 04-20-2024 End: 04-20-2024 ambulatory Reginaloma marjoselyn Wadsworth Facility:[facility] Start: 04-20-2024 End: 04-20-2024 ambulatory [facility] Facility:[facility] Start: 04-15-2024 End: 04-15-2024 Dr. [facility] Work Phone: Start: 04-15-2024 End: 04-15-2024 Emergency department patient visit Gigi Barton Facility:[facility] Start: 04-05-2024 Dr. Autumn Gorman MD - [facility] Work Phone: Start: 04-04-2024 Dr. Autumn Gorman MD - [facility] Work Phone: Start: 04-03-2024 ambulatory Tita Winn Facility:[facility] Start: 04-03-2024 End: 04-05-2024 Evaluation and management of inpatient Tita Winn Facility:[facility] Start: 04-03-2024 End: 04-05-2024 Dr. Autumn Gorman MD -Medical Surgical 3 Work Phone: Start: 03-31-2024 Encounter for preprocedural laboratory examination Alan Mack [facility] Start: 03-17-2024 ambulatory Efewongbe Oleghe Facili ty:[facility] Start: 03-16-2024 ambulatory Efewongbe Oleghe Facili ty:[facility] Start: 02-25-2024 ambulatory Gautam H Anastasiia [employer] Facility :[facility] Start: 02-20-2024 End: 02-20-2024 Dr. Alan Mack MD -[facility] Work Phone: Start: 02-20-2024 End: 02-20-2024 [facility] Start: 02-17-2024 End: 02-17-2024 [facility] Start: 02-17-2024 End: 02-17-2024 Dr. Samuel Keys MD -[facility] Work Phone: Start: 01-27-2024 End: 01-27-2024 Dr. Charla Wadsworth MD -[facility] Work Phone: Start: 01-27-2024 End: 01-27-2024 ambulatory Efewongbe Olee Facility:[facility] Start: 01-10-2024 End: 01-10-2024 [facility] Start: 12-09-2023 End: 12-09-2023 [facility] Start: 12-04-2023 End: 12-04-2023 [facility] Start: 12-02-2023 ambulatory Efewongbe Oleghe Facili ty:[facility] Start: 12-02-2023 End: 12-02-2023 [facility] Facility[facility] Start: 11-29-2023 ambulatory Efewongbe Oleghe Facili ty:[facility] Start: 11-18-2023 End: 11-18-2023 ambulatory Efewongbe Oleghe Facility:[facility] Start: 11-14-2023 End: 11-14-2023 ambulatory Efewongbe Oleghe Facility:[facility] Start: 11-12-2023 End: 11-12-2023 ambulatory Candy Shadi [employer] Facility:[facility] Start: 11-12-2023 End: 11-12-2023 ambulatory Mansrobert Coellous Facility:[facility] Start: 11-06-2023 End: 11-06-2023 ambulatory Reginaloma marjoselyn Aguilarsusanne Facility:[facility] Start: 11-04-2023 Encounter for genera l adult medical examination without abnormal findings Charla Wadsworth [facility] Start: 11-04-2023 End: 11-04-2023 [facility] Facility[facility] Start: 11-03-2023 End: 11-04-2023 [facility] Start: 10-28-2023 End: 10-28-2023 [facility] Start: 10-25-2023 End: 10-25-2023 [facility]ulatory [facility] Ananth Facility:[facility] Start: 07-12-2023 End: 07-12-2023 Emergency department patient visit Dr. Charla Wadsworth Work Phone: [facility]-Emergency Department Work Phone: Start: 06-20-2023 End: 06-20-[address] Charla Wadsworth Work Phone: [facility] Work Phone: Start: 05-24-2023 End: 05-24-2023 Emergency department patient visit Dr. Charla Wadsworth Work Phone: [facility]-Emergency Department Work Phone: Start: 03-26-2023 End: 03-26-[address] Charla Wadsworth Work Phone: [facility] Work Phone: Start: 03-22-2023 End: 03-22-[address] Charla Wadwsorth Work Phone: [facility] Work Phone: Start: 02-18-2023 End: 02-18-2023 Non-patient / Non-visit Dr. Charla Wadsworth Work Phone: [facility] Work Phone: Start: 02-14-2023 End: 02-14-[address] Charla Wadsworth Work Phone: [facility] Work Phone: Start: 01-30-2023 End: 01-30-[address] Charla Wadsworth Work Phone: [facility] Work Phone: Start: 01-30-2023 End: 01-30-[address] Charla Wadsworth Work Phone: [facility] Internal [facility] Work Phone: Start: 12-10-2022 End: 12-10-[address] Charla Wadsworth Work Phone: [facility] Work Phone: Start: 12-03-2022 End: 12-03-2022 Emergency department patient visit Dr. Charla Wadsworth Work Phone: [facility]-Emergency Department Work Phone: Start: 11-24-2022 End: 11-24-2022 Emergency department patient visit Dr. Charla Wadsworth Work Phone: [facility]-Emergency Department Work Phone: Start: 11-15-2022 End: 11-15-2022 Emergency department patient visit Dr. Charla Wadsworth Work Phone: [facility]-Emergency Department Work Phone: Start: 11-13-2022 End: 11-13-2022 Emergency department patient [facility] Start: 10-09-2022 End: 10-09-[address] Charla Wadsworth Work Phone: [facility]-Outpatient Bone Densitometry Work Phone: Start: 08-28-2022 End: 08-28-[address] Charla Wadsworth Work Phone: [facility] Work Phone: Start: 05-16-2022 End: 05-16-[address] Charla Wadsworth Work Phone: [facility] Work Phone: Start: 05-16-2022 End: 05-16-[address] Charla Wadsworth Work Phone: [facility]-Laboratory, [facility] Start: 05-16-[address] Susanne Wadsworth Work Phone: [facility] Start: 05-16-2022 End: 05-16-2022 Encounter for general adult medical examination without abnormal findings Dr. Charla Wadsworth Work Phone: [facility] Start: 05-16-2022 End: 05-16-[address] Charla Wadsworth Work Phone: [facility] Start: 02-20-2022 End: 02-20-[address] Charla Wadsworth Work Phone: [facility] Start: 01-22-2022 End: 01-22-[address] Charla Wadsworth Work Phone: [facility] Start: 01-22-2022 End: 01-22-[address] Charla Wadsworth Work Phone: [facility] Work Phone: Start: 01-22-2022 End: 01-22-[address] Charla Wadsworth Work Phone: [facility] Start: 11-22-2021 End: 11-22-[address] Charla Wadsworth Work Phone: [facility] Start: 11-03-2021 End: 11-03-[address] Charla Wadsworth Work Phone: [facility] Start: 10-25-2021 Non-patient / Non-visit Dr. Letha Wadsworth Work Phone: [facility] Start: 10-24-2021 Non-patient / Non-visit Dr. Letha Wadsworth Work Phone: [facility] Start: 10-23-2021 Non-patient / Non-visit Dr. Letha Wadsworth Work Phone: [facility] Start: 10-23-2021 End: 10-25-2021 Evaluation and management of inpatient Dr. Charla Wadsworth Work Phone: [facility]-Medical Surgical 3 Start: 10-22-2021 End: 10-22-2021 Emergency department patient visit Dr. Charla Wadsworth Work Phone: [facility]-Emergency Department Start: 09-12-[address] Wilma Wadsworth Work Phone: [facility]-Physical Therapy Start: 08-17-2021 End: 08-17-2021 Admission to same day surgery center Dr. Charla Wadsworth Work Phone: [facility]-Control Clerk Repairs/Special Procedures Start: 08-15-2021 End: 08-15-[address] Charla Wadsworth Work Phone: [facility]-Radiology, [facility] Start: 08-15-[address] Wilma Wadsworth Work Phone: [facility]-Physical Therapy Start: 04-24-2021 End: 04-24-[address] Charla Wadsworth Work Phone: [facility] Start: 03-01-[address] Susanne Wadsworth Work Phone: [facility] Start: 09-22-2020 End: 09-23-2020 ambulatory GEE GAUTAM [facility] Start: 12-14-2019 End: 12-14-2019 Subsequent hospital visit by physician Dev Bridges Work Phone: [facility] Comment on above: Other malignant neur oendocrine tumors; Family history of colon cancer Procedures Date Procedure Procedure Detail Performing Clinician Start: 08-04-2024 End: 08-04-2024 Prgrmg dev eval implantable subq lead dfb system Nacho Dunn MD Work Phone: Start: 08-04-2024 Mri spinal canal cer vical w/o contrast matrl Butch Mays MD Work Phone: Start: 07-22-2024 [...] Start: 07-22-2024 Platelet mean volume determination Dr. Chalra Wadsworth MD Work Phone: Start: 07-02-2024 Blood [...] Work Phone: Start: 05-04-2024 Anion gap measurement D justin Wadsworth MD Work Phone: Start: 05-04-2024 Blood [...] Work Phone: Start: 04-05-2024 Anion gap measurement Marck Wadsworth MD Work Phone: Start: 04-05-2024 Blood [...] Wadsworth Work Phone: Start: 10-09-2022 Screening mammography Marck Wadsworth Work Phone: Start: 01-22-[address] Binh Wadsworth Work Phone: Start: 11-22-2021 Computed tomography of [...] Comment: URIN ALYSIS Performed By: #### 2 [id number] #### [facility],[address] [place] [address] Start: 04-10-2013 End: 04-10-2013 Nurse, Teaching, Wound Check (no charge) Samuel Keys MD Start: 03-30-2013 End: 03-30-2013 Nurse, Teaching, [...] Treatment Date Care Activity Detail Author Start: 10-10-2024 [facility] Start: 10-10-2024 Plain X-ray of clavicle [facility] Start: 10-10-2024 Plain x-ray of pelvi s and lower extremity [facility] Start: 10-10-2024 Plain X-ray of shoulder [facility] Start: 10-10-2024 X-ray of knee, four or more views [facility] Start: 10-10-2024 XR Clavicle Views [facility] Start: 10-10-2024 XR Knee [facility] Start: 10-10-2024 XR Pelvis and Hip Views [facility] Start: 10-10-2024 XR Shoulder GE 2 Views [facility] Start: 10-05-2024 Polysomnography [facility] Start: 09-15-2024 End: 09-15-2024 Patient encounter procedure 09/15/2024 11:40 AM EDT Appointment RADIO MRI [facility] [address] [place] [address] DUE TO PT IMPLANT- IF APPT NEEDS TO BE RESCHEDULED IT MUST BE SENT TO THE FOLLOWING STAFF MESSAGE ADDRESS: IMAGING IMPLANTS [[id number]]. PACEMAKER and stimulator approved to schedule by: [facility] Comment on above: DUE TO PT IMPLANT- I F APPT NEEDS TO BE RESCHEDULED IT MUST BE SENT TO THE FOLLOWING STAFF MESSAGE ADDRESS: IMAGING IMPLANTS [[id number]]. PACEMAKER and stimulator approved to schedule by: [facility] Start: 09-15-2024 End: 09-15-2024 Patient encounter procedure 09/15/2024 10:20 AM EDT Appointment RADIO MRI [facility] [address] [place] [address] DUE TO PT IMPLANT- IF APPT NEEDS TO BE RESCHEDULED IT MUST BE SENT TO THE FOLLOWING STAFF MESSAGE ADDRESS: IMAGING IMPLANTS [[id number]]. PACEMAKER and stimulator approved to schedule by: [facility] Comment on above: DUE TO PT IMPLANT- I F APPT NEEDS TO BE RESCHEDULED IT MUST BE SENT TO THE FOLLOWING STAFF MESSAGE ADDRESS: IMAGING IMPLANTS [[id number]]. PACEMAKER and stimulator approved to schedule by: [facility] Start: 09-08-2024 Polysomnography [facility] Start: 08-05-2024 End: 08-05-2024 Patient encounter procedure 08/05/2024 10:00 AM EDT Office Visit [facility] [address] [place] [address] Butch Mays MD [address] [place] [address] [address] [place] [address] go over MRI resutls [facility] Comment on above: go over MRI resutls Start: 07-22-2024 [facility] Start: 07-20-2024 End: 2025 MR Cervical spine WO contrast MRI CERVICAL SPINE WO IVCON Radiology STAT Spinal stenosis of cervical region Expected: 07/20/2024, Expires: 2025 [facility] Work Phone: Comment on above: Expected: 07/20/2024 , Expires: 2025 Start: 07-20-2024 End: 2025 MR Thoracic spine WO contrast MRI THORACIC SPINE WO IVCON Radiology STAT Thoracic myelopathy Expected: 07/20/2024, Expires: 2025 [facility] Comment on above: Expected: 07/20/2024 , Expires: 2025 Start: 07-15-2024 End: 07-15-2024 Patient encounter procedure 07/15/2024 9:30 AM EDT Office Visit [facility] [address] [facility] [address] [place] [address] Butch Mays MD [address] [place] [address] [address] [place] [address] follow up after hospital visit, go over MRI results [facility] Comment on above: follow up after hosp ital visit, go over MRI results Start: 07-02-2024 [facility] Start: 07-02-2024 Hospital admission, emergency, from emergency room, medical nature [facility] Start: 06-29-2024 [facility] Start: 06-13-2024 [facility] Start: 05-21-2024 [facility] Start: 05-13-2024 [facility] Start: 05-13-2024 [facility] Start: 05-04-2024 [facility] Start: 05-04-2024 [facility] Start: 04-21-2024 Patient referral [facility] Work Phone: Start: 04-15-2024 [facility] Start: 04-13-2024 Urine microalbumin profile DTaP,Tdap,Td Vaccine (2 - Td or Tdap) [facility] Start: 04-06-2024 Referral to service [facility] Start: 04-05-2024 Patient discharge [facility] Start: 04-04-2024 Contact precautions [facility] Start: 04-04-2024 Respiratory secretio n precautions [facility] Start: 04-04-2024 Referral to service [facility] Start: 04-03-2024 Continuous positive airway pressure ventilation treatment [facility] Start: 04-03-2024 Following clinical pathway protocol [facility] Start: 04-03-2024 End: 04-03-2024 [facility] Start: 04-03-2024 Assessment of risk o f venous thromboembolism [facility] Start: 04-03-2024 Incentive spirometry [facility] [place] Start: 04-03-2024 Inhalation therapy procedure [facility] Start: 04-03-2024 Insertion of cathete r into peripheral vein [facility] Start: 04-03-2024 Oxygen therapy [facility] Start: 04-03-2024 Providing care accor ding to standard [facility] Start: 04-03-2024 Provision of activit y privileges [facility] Start: 04-03-2024 Referral to occupati onal therapist [facility] Start: 04-03-2024 Referral to service [facility] Start: 04-03-2024 Tobacco use cessatio n education [facility] Start: 04-03-2024 Admission procedure [facility] Start: 04-03-2024 Patient referral to dietitian [facility] Start: 11-10-2023 Covid-19 Vaccine ( season) Covid-19 Vaccine ( season) [facility] Start: 07-12-2023 [facility] Start: 03-26-2023 Patient referral [facility] Work Phone: Start: 01-30-2023 Patient referral [facility] Work Phone: Start: 12-03-2022 [facility] Start: 05-16-2022 Patient referral [facility] Work Phone: Start: 10-25-2021 Patient discharge [facility] Work Phone: Start: 10-24-2021 Consultation [facility] Work Phone: Start: 10-23-2021 End: 10-24-2021 [facility] Work Phone: Start: 10-23-2021 Referral to occupati onal therapist [facility] Work Phone: Start: 10-23-2021 Referral to service [facility] Work Phone: Start: 10-23-2021 Following clinical pathway protocol [facility] Work Phone: Start: 10-23-2021 Ambulation without limitation [facility] Work Phone: Start: 10-23-2021 Assessment of risk o f venous thromboembolism [facility] Work Phone: Start: 10-23-2021 Incentive spirometry [facility] [place] Work Phone: Start: 10-23-2021 Insertion of cathete r into peripheral vein [facility] Work Phone: Start: 10-23-2021 Oxygen therapy [facility] Work Phone: Start: 10-23-2021 Providing care accor ding to standard [facility] Work Phone: Start: 10-23-2021 Referral to service [facility] Work Phone: Start: 10-23-2021 Admission procedure [facility] Work Phone: Start: 10-23-2021 Patient referral to dietitian [facility] Work Phone: Start: 01-04-2020 End: 01-04-2020 Telehealth Ancillary 01/04/2020 Telehealth Ancillary Genetics Deepika [place]opes, [place] [address] [facility] Start: 11-10-2019 FLU (#1) FLU (#1) [facility] Start: 11-10-2015 Pneumococcal Vaccine : 50+ (2 of 2 - PCV) Pneumococcal Vaccine: 50+ (2 of 2 - PCV) [facility] Start: 08-13-2015 Shingrix Vaccine (1 of 2) Elise grix Vaccine (1 of 2) [facility] Start: 03-12-2013 End: 03-30-2013 *BMP *BMP [facility] Work Phone: Start: 03-12-2013 End: 03-30-2013 *UA - Urinalysis w/o Micro *UA - Urinalysis w/o Micro [facility] Work Phone: Start: 03-12-2013 End: 03-30-2013 CBC W Auto Differential panel - Blood *CBC without Diff [facility] Work Phone: Start: 03-12-2013 End: 03-12-2013 Chest x-ray X-Ray, Chest, PA & Lateral [facility] Work Phone: Start: 03-12-2013 End: 03-30-2013 Coagulation factor induced.INR assay in platelet poor plasma *PT/INR [facility] Work Phone: Start: 03-12-2013 End: 03-12-2013 Electrocardiogram, complete EKG (In office) [facility] Work Phone: Start: 03-12-2013 End: 04-02-2013 Pacemaker Generator Change Pacemaker Generator Change [facility] Work Phone: Start: 2010 Screening for malign ant neoplasm of colon [facility] Start: 2005 Screening for malign ant neoplasm of breast Mammogram Screening [facility] Start: 1986 Microscopic observat ion Cyto stain Nom (Cvx) Pap Smear [facility] Start: 1986 Screening for malign ant neoplasm of cervix Cervical Cancer Screening [facility] Start: 1984 Hepatitis B (1 of 3 - Risk 3-dose series) Hepatitis B (1 of 3 - Risk 3-dose series) [facility] Start: 1984 Hepatitis B Vaccine (1 of 3 - 19+ 3-dose series) Hepatitis B Vaccine (1 of 3 - 19+ 3-dose series) [facility] Start: 1984 Urine microalbumin profile DTaP,Tdap,Td Vaccine (1 - Tdap) [facility] Start: 08-13-1983 Annual PCP Team Cell Biologist javy Disease Visit Annual PCP Team Chronic Disease Visit [facility] Start: 08-13-1983 Anxiety Screening Anxiety Screening [facility] Start: 08-13-1983 BP Controlled (<130/80) BP Controlle d (<130/80) [facility] Start: 08-13-1983 Depression Screening Depression Scre ening [facility] Start: 08-13-1983 Hepatitis B surface antibody level LDL Cholesterol [facility] Start: 08-13-1983 Hepatitis C screening Hepatitis C Sc ijeoma [facility] Start: 08-13-1983 HIV screening HIV Screening [facility] Start: 1981 MenB (1 of 2 - MenB 2-Dose Series) MenB (1 of 2 - MenB 2-Dose Series) [facility] Start: 08-13-1975 Diabetic foot examination Diabetic F oot Exam [facility] Start: 08-13-1975 Glaucoma screening Dilated Retinal E xam [facility] Start: 08-13-1975 Hepatitis B screening Urine Albumin:Creatinine Ratio [facility] Start: 1972 Tetanus Diphtheria a nd Pertussis Vaccines (1 - Tdap) Tetanus Diphtheria and Pertussis Vaccines (1 - Tdap) [facility] Start: 1970 Hemoglobin A1c measurement HbA1C [facility] Start: 1966 Hepatitis A (1 of 2 - Risk 2-dose series) Hepatitis A (1 of 2 - Risk 2-dose series) [facility] Start: 1966 MMR (1 of 1 - Standa rd series) MMR (1 of 1 - Standard series) [facility] Start: 1966 Varicella (1 of 2 - 2-dose childhood series) Varicella (1 of 2 - 2-dose childhood series) [facility] Bilirubin measuremen t, urine [facility] Work Phone: CARDIAC IMPLANTABLE DEVICE CHECK [facility] Work Phone: Catheterization of l eft heart [facility] Work Phone: DXA Bone [Mass/Area] Bone density [facility] End: 12-14-2019 Genetic Sendout: Common Hereditary Cancers Panel Genetic Sendout: Common Hereditary Cancers Panel Lab Timed Other malignant neuroendocrine tumors Family history of colon cancer 1 Occurrences starting 12/14/2019 until 12/14/2019 [facility] Comment on above: 1 Occurrences starti ng 12/14/2019 until 12/14/2019 Genetic Sendout: Com mon Hereditary Cancers Panel Genetic Sendout: Common Hereditary Cancers Panel Lab Routine Other malignant neuroendocrine tumors Family history of colon cancer 12/14/2019 1:15 PM EDT [facility] Hemoglobin [Presence ] in Urine [facility] Work Phone: Lipid 1996 panel - S maisha or Plasma [facility] Measurement of keton es in urine using dipstick [facility] Work Phone: MG Breast - bilatera l Screening [facility] Work Phone: MG Breast - bilatera l Screening [facility] Microscopic urinalysis [facility] Work Phone: End: 08-06-2025 MR Cervical spine WO contrast MRI CERVICAL SPINE WO IVCON Radiology Routine Spinal stenosis of cervical region 1 Occurrences starting 07/07/2024 until 08/06/2025 [facility] Work Phone: Comment on above: 1 Occurrences starti ng 07/07/2024 until 08/06/2025 End: 08-06-2025 MR Thoracic spine WO contrast MRI THORACIC SPINE WO IVCON Radiology Routine Thoracic myelopathy 1 Occurrences starting 07/07/2024 until 08/06/2025 [facility] Comment on above: 1 Occurrences starti ng 07/07/2024 until 08/06/2025 NM Heart Views W str ess and W radionuclide IV [facility] Patient Education [facility] Work Phone: Patient referral [facility] Work Phone: pH of Urine [facility] Work Phone: Polysomnography [facility] Specific gravity of Urine [facility] Work Phone: Urinalysis, blood, qualitative [facility] Work Phone: Urine dipstick for glucose [facility] Work Phone: Urine dipstick for leukocyte esterase [facility] Work Phone: Urine dipstick for nitrite [facility] Work Phone: Urine dipstick for protein [facility] Work Phone: Urine examination [facility] Work Phone: Urine microscopy: epithelial cells [facility] Work Phone: Urine Microscopy: wh ite cells [facility] Work Phone: Urobilinogen [Presen ce] in Urine [facility] Work Phone: US Carotid arteries [facility] US Heart [facility] Immunizations Immunization Date Immunization Notes Care Provider [facility] 04-04-2024 influenza, seasonal, injectable, preservative free Dr. Charla Wadsworth MD Work Phone: [facility] 03-26-2023 influenza, injectabl e, quadrivalent, preservative free Dr. Charla Wadsworth Work Phone: [facility] 12-02-2020 influenza, injectabl e, quadrivalent, preservative free Dr. Charla Wadsworth Work Phone: [facility] 12-02-2020 influenza, seasonal, injectable Dr. Charla Wadsworth Work Phone: [facility] 07-20-2020 Covid (Zane & Zane) Dr. Charla Wadsworth Work Phone: [facility] 01-07-2020 Flucelvax Quad 2020 (PF) (flu vac qs 2019(4 yr up)CD(PF)) 60 mcg ([address] Charla Wadsworth Work Phone: [facility] Work Phone: 01-07-2020 influenza, injectable,quadrivalent, preservative free, pediatric Dr. Charla Wadsworth Work Phone: [facility] 10-22-2018 influenza, injectabl e, quadrivalent, preservative free Dr. Charla Wadsworth Work Phone: [facility] 10-22-2018 influenza, seasonal, injectable Dr. Charla Wadsworth Work Phone: [facility] 12-18-[address] Charla Wadsworth Work Phone: [facility] 11-09-[address] Charla Wadsworth Work Phone: [facility] 11-09-2014 pneumococcal polysaccharide vaccine, [address] Charla Wadsworth Work Phone: [facility] Payers Date Payer Category Payer Self-pay [id number] 2023 Medicaid [id number] 2023 Medicaid [id number] 2023 Medicare (Managed Care) 1.2. [id number] 2023 Unknown [id number] 2019 Medicaid [place] [facility] MEDICAID [id number] 2019-Present [address] [place] [address] [id number] 2019 Medicare [facility] H[facility] HU[employer] MEDICARE [id number] 2019-Present [address] [address] [place] [address] [id number] 2016 Medicaid [id number] 2013 Medicare [id number] 1965 Unknown [id number] 2.16.840.1.127687.3.579.2.6 51 1965 Unknown [id number] 2.16.840.1.245809.3.579.2.6 27 Unknown [id number] 2.16.840.1.412502.3.579.2.4 62 Unknown [id number] 2.16.840.1.252516.3.579.2.4 62 Unknown [id number] 2.16.840.1.326110.3.579.2.4 62 Unknown [id number] 2.16.840.1.614673.3.579.2.4 62 Unknown [id number] 2.16.840.1.994815.3.579.2.4 62 Unknown [id number] 2.16.840.1.246578.3.579.2.4 62 Unknown [id number] 2.16.840.1.854057.3.579.2.4 62 Unknown [id number] 2.16.840.1.811235.3.579.2.4 62 Unknown [id number] 2.16.840.1.588055.3.579.2.4 62 Unknown [id number] 2.16.840.1.971993.3.579.2.4 62 Unknown [id number] 2.16.840.1.640190.3.579.2.4 62 Unknown [id number] 2.16.840.1.001168.3.579.2.4 62 Unknown [id number] 2.16.840.1.228601.3.579.2.4 62 Unknown [id number] 2.16.840.1.264807.3.579.2.4 62 Unknown [id number] 2.16.840.1.839784.3.579.2.4 62 Unknown [id number] 2.16.840.1.992841.3.579.2.4 62 Unknown [id number] 2.16.840.1.781773.3.579.2.4 62 Unknown [id number] 2.16.840.1.220213.3.579.2.4 62 Unknown [id number] 2.16.840.1.531288.3.579.2.4 62 Unknown [id number] 2.16.840.1.552167.3.579.2.4 62 Unknown [id number] 2.16.840.1.168609.3.579.2.4 62 Unknown [id number] 2.16.840.1.599240.3.579.2.4 62 Unknown [id number] 2.16.840.1.286863.3.579.2.4 62 Unknown [id number] 2.16.840.1.554148.3.579.2.4 62 Unknown [id number] 2.16.840.1.343888.3.579.2.4 62 Unknown [id number] 2.16.840.1.656408.3.579.2.4 62 Unknown [id number] 2.16.840.1.033578.3.579.2.4 62 Unknown [id number] 2.16.840.1.928048.3.579.2.4 62 Unknown [id number] 2.16.840.1.377188.3.579.2.4 62 Unknown [id number] 2.16.840.1.614509.3.579.2.4 62 Unknown [id number] 2.16.840.1.808996.3.579.2.4 62 Unknown [id number] 2.16.840.1.796787.3.579.2.4 62 Unknown [id number] 2.16.840.1.205423.3.579.2.4 62 Unknown [id number] 2.16.840.1.758844.3.579.2.4 62 Unknown [id number] 2.16.840.1.355892.3.579.2.4 62 Unknown [id number] 2.16.840.1.562541.3.579.2.4 62 Unknown [id number] 2.16.840.1.899154.3.579.2.4 62 Unknown [id number] 2.16.840.1.119656.3.579.2.4 62 Unknown [id number] 2.16.840.1.339865.3.579.2.4 62 Unknown [id number] 2.16.840.1.322417.3.579.2.4 62 Unknown [id number] 2.16.840.1.481074.3.579.2.4 62 Unknown [id number] 2.16.840.1.367846.3.579.2.4 62 Unknown [id number] 2.16.840.1.173130.3.579.2.4 62 Unknown [id number] 2.16.840.1.878560.3.579.2.4 62 Unknown [id number] 2.16.840.1.185311.3.579.2.4 62 Unknown [id number] 2.16.840.1.374044.3.579.2.4 62 Unknown [id number] 2.16.840.1.367753.3.579.2.4 62 Unknown [id number] 2.16.840.1.265903.3.579.2.4 62 Unknown [id number] 2.16.840.1.294257.3.579.2.4 62 Unknown [id number] 2.16.840.1.495464.3.579.2.4 62 Unknown [id number] 2.16.840.1.583577.3.579.2.4 62 Unknown [id number] 2.16.840.1.342804.3.579.2.4 62 Unknown [id number] 2.16.840.1.617748.3.579.2.4 62 Unknown [id number] 2.16.840.1.958728.3.579.2.4 62 Unknown [id number] 2.16.840.1.455470.3.579.2.4 62 Unknown [id number] 2.16.840.1.852851.3.579.2.4 62 Unknown [id number] 2.16.840.1.602357.3.579.2.4 62 Social History Date Type Detail Facility Start: 05-21-2017 End: 12-14-2019 Tobacco smoking status NHIS Former smoker [facility] Work Phone: Start: 05-21-1990 End: 05-22-2015 History of tobacco use Current smoker [facility] Start: 05-21-2017 End: 12-14-2019 Tobacco use and exposure Never used [facility] Start: 1965 Sex Assigned At Not on file A [facility] Exposure to SARS-CoV -2 (event) Not sure [facility] Start: 08-17-2021 End: 07-12-2023 Tobacco smoking status MTIS Unknown if ever smoked [facility] Start: 08-04-2020 Occasional [facility] Start: 08-04-2020 None [facility] Start: 10-24-2019 Alone [facility] Start: 08-04-2020 Cigarettes [facility] Start: 1965 Sex Assigned At Female [facility] Start: 05-21-2024 End: 10-10-2024 Tobacco smoking status MTIS Current some day smoker [facility] Start: 05-22-2024 End: 07-03-2024 Sex Female (finding) [facility] Start: 05-21-1990 End: 05-22-2015 History of tobacco use Cigarette Smoker [facility] Start: 05-21-2017 End: 08-05-2024 Cigarettes smoked current (pack per day) - Reported 0.5 [facility] Start: 07-03-2024 End: 08-05-2024 Alcoholic beverage intake Current non-drinker of alcohol (finding) [facility] Start: 07-03-2024 End: 08-05-2024 [facility] Utilities [facility] Has the electric, [employer], oil, or water company threatened to shut off services in your home in past 12Mo No [facility] PHQ2 Score 0 [facility] (I/We) worried wheth er (my/our) food would run out before (I/we) got money to buy more. Never true [facility] Start: 05-21-2017 Tobacco Comment quit 2 years ago [facility] Medical Equipment Procedure Code Equipment Code Equipment Origin al Text Equipment Identifier Dates ([id number]) [id number] FDA Start: 08-17-2021 ([id number]) ()[id number] FDA Start: 12-02-2023 Pacemaker- 02 4 [id number] Start: 12-02-2023 Comment on above: Description: BSC L11 1 RA 4469 RV 4470 Stimulator- [id number] Start: 01-17-2023 Comment on above: Description: MDSoha 977 15 2 Leads 977A2 Pt is full body eligible 1.5T Normal mode 30 min active scanning in 90 min window Pacemaker-[id number] Start: 04-03-2013 [id number] Start : 05-10-2003 [id number] Start : 05-10-2003 [id number] [id number] [id number] Start : 12-02-2023 Goals Date Patient Goal Desired Activity /State Functional Status Date Assessment Result Facility 07-04-2024 Are you deaf, or do you have serious difficulty hearing No 07/04/2024 1:25 PM Juan Luis Tineo RN No [facility] 07-04-2024 Are you blind, or do you have serious difficulty seeing, even when wearing glasses No 07/04/2024 1:25 PM EDT Juan Luis Abraham, AKIKO No [facility] 07-04-2024 Do you have serious difficulty walking or climbing stairs No 07/04/2024 1:25 PM EDT Juan Luis Abraham, AKIKO No [facility] 07-04-2024 Do you have difficul ty dressing or bathing No 07/04/2024 1:25 PM EDT Juan Luis Abraham, AKIKO No [facility] 07-04-2024 Because of a physica l, mental, or emotional condition, do you have difficulty doing errands alone such as visiting a physician's office or shopping No 07/04/2024 1:25 PM EDJuan Luis Enciso, AKIKO No [facility] 04-05-2024 Functional status Bathroom Privi lege;Back to bed [facility] Work Phone: 10-25-2021 Functional status Chair [facility] Work Phone: 10-24-2021 Functional status None [facility] Work Phone: Mental Status Date Assessment Result Facility 07-04-2024 Because of a physica l, mental, or emotional condition, do you have serious difficulty concentrating, remembering, or making decisions No 07/04/2024 1:25 PM EDT Juan Luis Abraham RN No [facility] 06-29-2024 Cognitive function Voice/Name [facility] Work Phone: 04-05-2024 Cognitive function Appropriate;Cooperativ e [facility] Work Phone: 07-12-2023 Cognitive function Level Of Cons ciousness Awake;Alert;Appropriate [facility] Work Phone: 12-03-2022 Cognitive function Voice/Name [facility] Work Phone: 11-24-2022 Cognitive function Level Of Cons ciousness Awake;Alert;Appropriate;Fol lows Commands [facility] Work Phone: 10-25-2021 Cognitive function Voice/Name [facility] Work Phone: Clinical Notes 10-10-2020 to 08-10-2024 Telephone Encounter - Katrin Peng - 08/10/2024 8:00 AM EDTTelephone Encounter - Katrin Peng - 08/10/2024 8:00 AM EDTCButch monteiro MD - 08/05/2024 10:56 PM EDT Note Date & Type Note Facility 08-10-2024 Telephone encounter Note I faxed order to [facility], however patient was released from them in 2014. No reason given. Please advise [facility] 08-10-2024 Miscellaneous Notes I faxed order to [facility], however patient was released from them in 2014. No reason given. Please advise documented in this encounter [facility] 08-05-2024 Note HNO ID: [id number] Author: BUTCH MAYS MD Service: ? Author Type: Physician Type: Progress Notes Filed: 08/05/2024 23:04 Note Text: Butch Mays MD Orthopaedic Spine Surgery [address] [place] [address], [address], [place] [address] FAX: [phone] Spine Surgery Outpatient Note Service Date: 08/05/2024 [...] Essential Hypertension Copd (Chronic Obstructive Pulmonary Disease) ([facility]) Controlled Type 2 Diabetes Mellitus Without Complication, Without Long-Term Current Use of Insulin ([facility]) History of Pulmonary Embolus (Pe) Atrial Fibrillation ([facility]) Hyperlipidemia Tobacco Use Disorder Eloy (Obstructive Sleep Apnea) Heart Failure With Preserved Ejection Fraction ([facility]) Armani (Acute Kidney Injury) Obesity, Class III, BMI >= 40 PAST MEDICAL HISTORY Diagnosis Date Anxiety Atrial fibrillation ([facility]) 07/03/2024 CAD (coronary artery disease) 07/03/2024 Congestive heart failure ([facility]) 07/03/2024 Controlled type 2 diabetes mellitus without complication, without long-term current use of insulin ([facility]) 07/03/2024 COPD (chronic obstructive pulmonary disease) ([facility]) 07/03/2024 Depression Gastric mass Hypertension Hypothyroid ELOY (obstructive sleep apnea) 07/03/[address] bangura . pacemaker checked at [facility] Sick sinus syndrome ([facility]) Sleep apnea uses cpap at night PAST SURGICAL HISTORY Procedure Laterality Date ANESTHESIA LUMBAR REGION NOS 02/07/2016 L4-L5 fusion; [facility] APPENDECTOMY CARPAL TUNNEL left HYSTERECTOMY HX LAPAROSCOPY [...] by mouth two (more content not included)... [facility] 08-05-2024 History of Presen t illness Narrative Images from the original note were not included. Butch Mays MD Orthopaedic Spine Surgery [facility], [address], [place] [address] FAX: [phone] Spine Surgery Outpatient Note Service Date: 08/05/2024 [...] Essential Hypertension Copd (Chronic Obstructive Pulmonary Disease) ([facility]) Controlled Type 2 Diabetes Mellitus Without Complication, Without Long-Term Current Use of Insulin ([facility]) History of Pulmonary Embolus (Pe) Atrial Fibrillation ([facility]) Hyperlipidemia Tobacco Use Disorder Eloy (Obstructive Sleep Apnea) Heart Failure With Preserved Ejection Fraction ([facility]) Armani (Acute Kidney Injury) Obesity, Class III, BMI >= 40 PAST MEDICAL HISTORY Diagnosis Date Anxiety Atrial fibrillation ([facility]) 07/03/2024 CAD (coronary artery disease) 07/03/2024 Congestive heart failure ([facility]) 07/03/2024 Controlled type 2 diabetes mellitus without complication, without long-term current use of insulin ([facility]) 07/03/2024 COPD (chronic obstructive pulmonary disease) ([facility]) 07/03/2024 Depression Gastric mass Hypertension Hypothyroid ELOY (obstructive sleep apnea) 07/03/[address] bangura . pacemaker checked at [facility] Sick sinus syndrome ([facility]) Sleep apnea uses cpap at night PAST SURGICAL HISTORY Procedure Laterality Date ANESTHESIA LUMBAR REGION NOS 02/07/2016 L4-L5 fusion; [facility] APPENDECTOMY CARPAL TUNNEL left HYSTERECTOMY HX LAPAROSCOPY [...] Drug use: No Comment: Heavy EtOH use untli 2000. ALLERGIES Allergen Reactions Asa [Salicylates] GI Upset [...] (C6) 5 5 Triceps (C7) 5 5 Lab Head (C8) 5 5 Interossei (T1) 5 5 [...] was generated all or in part using Ape[employer] voice recognition software and Snippets Dictation software. Please excuse any minor errors in spelling, grammar, or punctuation. 58 y/o female presents to office to discuss MRI results of the cervical and thoracic spine. documented in this encounter [facility] 08-05-2024 Note HNO ID: [id number] Author: VANIA LADD MA Service: ? Author Type: Die Repair Machinist Type: Progress Notes Filed: 08/05/2024 23:04 Note Text: 58 y/o female presents to office to discuss MRI results of the cervical and thoracic spine. [facility] 08-04-2024 Note IMPRESSION: 1. Artifact from [...] and assume there are 5 lumbar-type vertebrae. Application Security Consultant[facility] Transcribe Date/Time: Aug 04 2024 4:51P Dictated by : JUSTIN MOSHER MD This examination was interpreted and the report reviewed and electronically signed by: JUSTIN MOSHER MD on Aug 04 2024 4:56PM [facility] 08-04-2024 Note IMPRESSION: 1. Evaluation limited by [...] vertebrae with counting from the craniocervical junction. Application Security Consultant: [employer] Transcribe Date/Time: Aug 04 2024 4:34P Dictated by : JUSTIN MOSHER MD This examination was interpreted and the report reviewed and electronically signed by: JUSTIN MOSHER MD on Aug 04 2024 4:39PM [facility] 08-04-2024 History of Presen t illness Narrative [...] PATIENT PRESENTS WITH AN IMPLANTABLE OR ATTACHED DOUGH BRAKER: Yes Other [employer] Pacemaker Medtronic IPG RADIOLOGY DEPARTMENT: MR; Exam(s) Completed: Spine: Cervical spine and Thoracic spine. Lavender Administered: No PERIPHERAL IV DATA: Not applicable SIGNED BY: YUSRA Abdi August 04, 2024 2:24 PM documented in this encounter [facility] 08-04-2024 Note HNO ID: [id number] Author: FANNY DONOVAN RN Service: ? Author Type: Registered Nurse Type: Procedures Filed: 08/04/2024 14:58 Note Text: Radiology Service Progress Note PATIENT NAME: Ramses Bradshaw DATE OF SERVICE: August 04, 2024 TIME: 2:55 PM PATIENT IDENTITY VERIFICATION COMPLETED USING TWO (2) STANDARD IDENTIFIERS: Name and Date of confirmed by patient verbally. ALLERGIES: Reviewed and unchanged MEDICATIONS REVIEWED: YES PROCEDURE: MRI - Conditional Pacemaker [employer], AV pacing at 75 Physiologic monitoring per standard operating procedure. See vital sign flowsheet. PATIENT TOLERATED PROCEDURE: Without incident. PATIENT DISCHARGED TO: Home/Self Care SIGNED BY: Fanny Donovan RN [facility] 08-04-2024 Note HNO ID: [id number] Author: LUKAS CRUZ MRI Tech Service: ? Author Type: [...] PATIENT PRESENTS WITH AN IMPLANTABLE OR ATTACHED DOUGH BRAKER: Yes Other [employer] Pacemaker Medtronic IPG RADIOLOGY DEPARTMENT: MR; Exam(s) Completed: Spine: Cervical spine and Thoracic spine. Lavender Administered: No PERIPHERAL IV DATA: Not applicable SIGNED BY: YUSRA Abdi August 04, 2024 2:24 PM [facility] 08-04-2024 Procedure note Radiology Service Progress Note PATIENT NAME: Ramses Bradshaw DATE OF SERVICE: August 04, 2024 TIME: 2:55 PM PATIENT IDENTITY VERIFICATION COMPLETED USING TWO (2) STANDARD IDENTIFIERS: Name and Date of confirmed by patient verbally. ALLERGIES: Reviewed and unchanged MEDICATIONS REVIEWED: YES PROCEDURE: MRI - Conditional Pacemaker [employer], AV pacing at 75 Physiologic monitoring per standard operating procedure. See vital sign flowsheet. PATIENT TOLERATED PROCEDURE: Without incident. PATIENT DISCHARGED TO: Home/Self Care SIGNED BY: Fanny Donovan, RN T [facility] 08-04-2024 Procedure note Radiology Service Progress Note PATIENT NAME: Ramses Bradshaw DATE OF SERVICE: August 04, 2024 TIME: 2:55 PM PATIENT IDENTITY VERIFICATION COMPLETED USING TWO (2) STANDARD IDENTIFIERS: Name and Date of confirmed by patient verbally. ALLERGIES: Reviewed and unchanged MEDICATIONS REVIEWED: YES PROCEDURE: MRI - Conditional Pacemaker [employer], AV pacing at 75 Physiologic monitoring per standard operating procedure. See vital sign flowsheet. PATIENT TOLERATED PROCEDURE: Without incident. PATIENT DISCHARGED TO: Home/Self Care SIGNED BY: Fanny Donovan RN documented in this encounter [facility] 07-23-2024 Discharge summary Note Date/Time July 23, 2024 12:06am [facility] Medical Records Department [address] [place] [address] Emergency Department Summary 07/22/24 MR#: [id number] Acct: [id number] Name: RAMSES BRADSHAW Rep #:[id number] : 1965 58 From: [place] [place] PCP: [...] Infected dental carries Atherosclerotic heart disease of [place] coronary artery without angina pectoris Monomorphic ventricular [...] denosumab 60 mg/mL subcutaneous 60 mg subcut [id number] #1 mL 02/15/23 09/09/23 Rx syringe (Prolia) [...] physical activity do you participate in: none ivania/restoration: None seatbelt use: always do you feel [...] reviewed, Vital signs reviewed Constitutional: please see [facility] HENT: MMM Eyes: Pupils equal round and [...] imaging study Factors affecting care: As per [facility] Social determinants of health: none History obtained from others: none Consults: none [facility] Narrative: The patient was initially hemodynamically [...] Discharge home This note was generated with ApeSoft dictation software. It may contain incorrectwords, spelling, [...] % (Auto) 52.8 Lymph % (Auto) 37.0 [place] % (Auto) 7.3 Eos % (Auto) 1.9 [...] pelvis. Diffuse steatosis and hepatomegaly. Reading Location: [facility] Discharge Plan Triage Chief Complaint: Complaint ED [...] Prolia 60 mg/mL syringe 60 mg subcut [id number] Qty: 1 2RF Patient Comments: due for [...] for further outpatient evaluationand management. Print Language: Vietnamese Disposition Disposition: Home, Self Care What to do if you have Problems For any increased pain, shortness of breath, bleeding, nausea or vomiting, chestpain, or any unexpected problems, contact your Primary Care Provider. Call [facility] ([phone]) or report to the closest Emergency Room. Call 911 if necessary. 07/23/245 <Electronically signed by Chaim Maurer DO> Cosigner Signature (if applicable): CC: Dr. Charla Wadsworth MD ~ Signed [facility] Work Phone: 1(271) 495-529605-14-2025 Radiology Diagnostic study [facility]05-14-2025 Evaluation note* Diagnosis Onset Date Resolution Status Admit Date Hypersomnolence acute July 22, 2024 9:32am Ambulatory dysfunction chronic Ma 2024 9:32am Anxiety and depression chronic Ma 2024 9:32am Chronic lower back pain chronic M ay 2024 9:32am Hypertension chronic July 22 9:32am Type 2 diabetes mellitus chronic July 22, 2024 9:32am Diarrhea acute October 02 1:02pm Nausea & vomiting acute October 022024 1:02pm [facility] Work Phone: 1(518) 677-643505-05-2025 Telephone encounter Note* Telephone Encounter - Jeffeyr [place] Dari Sheth - 07/13/2024 9:38 AM EDT I will rout to Dr. Mays for signature. Dari Blevins Jeffery [place] Ppg July 13, 2024 9:50 AM [facility]05-05-2025 Miscellaneous Notes* Telephone Encounter - Jeffery Sheth Dari Blevins - 07/13/2024 9:38 AM EDT I will rout to Dr. Mays for signature. Darimaverick Gil Data Warehouse Developer Ppg July 13, 2024 9:50 AM [facility] NoteHNO ID: [id number] Author: DILMA GARAY MD Service: Hospital Medicine Author Type: Physician Type: Progress Notes Filed: 07/06/2024 15:23 Note Text: Documentation Query Please clarify the diagnosis of ARMANI for the patient and provide additional relevant clinical indicators to support the diagnosis as applicable. Acute kidney injury/failure is ruled out for this encounter This document will become part of the patient's medical record.[facility]04-26-2025 NoteHNO ID: [id number] Author: JUAN LUIS ABRAHAM RN Service: Nursing Author Type: Registered Nurse Type: Nursing Progress Note Filed: 07/04/2024 13:30 Note Text: Report given to Smitha forde deshaun Arias.[facility] 07-04-2024 NoteHNO ID: [id number] Author: HELEN DOCKERY LISW Service: Care Management Author Type: Brand Activation Manager Type: Care Mgt Progress Note Filed: 07/04/2024 13:31 Note Text: CARE MANAGEMENT DISCHARGE NOTE SERVICE DATE: July 04, 2024 SERVICE TIME: 1:26 PM Admission Date: 07/03/2024 LOS: 1 day Discharge Arrangement Discharge Arrangement: Assisted Living Facility Services Arranged Medical Services: Referred to Outpatient PT/OT Provider Name: Kae Stokes in [place] Caregiver Assessment Caregiver is ready, willing and able to meet the patient's needs as recommended by the inter-professional team: Yes Name of Caregiver: staff at [place]. Transportation Arrangements Transportation Arrangements: [employer] and Phone #:: [facility] ( [facility] ) [phone] / [phone] Date of Trip: 07/04/24 Time of Trip: 0200 Is Patient Medicaid Pending?: No Was transportation financial coverage discussed with family?: Patient Leather Goods Maker Location: [facility] Destination: [facility] Financial Care Management Responsibility: None Handoff Communication: Handoff to: Primary Care Physician Primary Care Physician Name/Phone: Dr. Charla Wadsworth Additional Information: none Discharge Information Row Name Admission (Current) from 07/03/2024 in [place] [address] NEURO/CARD Other Follow-Up Type Assisted Living Name [facility] Phone/ Met with patient to discuss SNF recommendation by therapy. Patient absolutely refuses SNF because of her cat at the A.. Called [facility] and spoke with Juana WHARTON who called the cloth winding supervisor. Can can return to . today if MD write for outpatient therapy and the facility will provide transport to [employer] the company they use. Discussed with patient. Set up 3pm wheelchair van to [facility] today. SIGNATURE: JUSTIN Clark PATIENT NAME: Ramses Bradshaw DATE: July 04, 2024 TIME: 1:26 [facility]04-26-2025 NoteHNO ID: [id number] Author: DEBI DENISE MD Service: Orthopaedic Surgery [...] Dr. Mays. Please page orthopaedic surgery at #[phone] for additional questions or concerns. Debi Denise MD Orthopaedic Surgery July 04, 2024 7:58 [facility]04-25-2025 NoteHNO ID: [id number] Author: DILMA GARAY MD Service: Hospital Medicine Author Type: Physician Type: Plan of Care Filed: 07/03/2024 16:53 Note Text: Patient is seen and examined at bedside this morning with RN. Complaining of persistent back pain. Patient has a spine stimulator, however with remote is not working at this time. Patient unable to have anybody bring in the battery recharger for the remote. No family or friend [...] assessment and plan in HANDP by my colleague.[facility]04-25-2025 NoteHNO ID: [id number] Author: NANI ROD RN Service: Care Management Author Type: Registered Nurse Type: Care Mgt Initial Assessment Filed: 07/03/2024 13:19 Note Text: CARE MANAGEMENT: ASSESSMENT AND DISCHARGE PLAN SERVICE DATE: July 03, 2024 SERVICE TIME: 1:13 PM PCP: No primary care provider on file. Primary Contact: Extended Emergency Contact Information Primary Emergency Contact: Riddhi Bradshaw Relation: Daughter Secondary Emergency Contact: [employer] Relation: Daughter Admission Status: Inpatient Insurance Provider: [employer] MEDICARE PPO Discharge Planning requested by: Per Department Practice Potential Transition Plans To Be Determined Advance Directives Current Advance Directive: None Broomcorn Scraper Attempted to Assist with AD Completion: Yes Action: Education Provided Current Living Arrangements and Support Lives with: Alone Type of Residence: Assisted Living Facility Does the patient have to climb stairs at home?: No Care Facility Name: [facility] Support: Other: See Comment staff at [place] How do you manage to accomplish the following: Independent: Ambulation, Going to the bathroom, Medication Management, Dress Needs Assistance: Bathe/Shower Dependent: Meals/Meal Prep, Transportation to appointments/community Current Services/Equipment Current Post-Acute Service(s): DME Current DME Type: Wheelchair-electric, Rollator Scooter, Grab bars, Shower seat Discharge Planning Patient Goal(s): Independent living, Be able to go home, General wellness [place] of Choice Explained: [place] of Choice Given: No Reason Not Given: [...] is at bedside, but is not charged. Molded Rubber Goods Cutter is not with patient. MD has indicated to patient that she will need to have someone bring the battery recharger to the hospital. Patient lives in [facility] in [place]. She uses a rollater in her apartment to ambulate and has an electric wheelchair she uses when she goes out. She does not have her wheelchair with her. She is dependent with most ADLs, denies any social concerns, +PCP, +RX coverage. Ortho following, await therapy evals when appropriate. Patient goal is to return to [place]. Will need [employer] transport arranged at [place]. to continue to follow. SIGNATURE: Nani Rod RN PATIENT NAME: Ramses Bradshaw DATE: July 03, 2024 TIME: 1:13 [facility]04-25-2025 Discharge summary Author Kati Huddleston [facility] Note Date/Time July 02, 2024 10: 09pm [facility] Medical Records Department [address] [place] [address] Emergency Department Summary 07/02/24 MR#: [id number] Acct: [id number] Name: RAMSES BRADSHAW Rep #:[id number] : 1965 58 From: Kati Huddleston DO PCP: Dr. Charla Wadsworth MD Status:R [...] Alexander. Patient states last night she had tocall for help at the assisted living facility [...] denies loss of bowel or bladder function. [facility] Medical History (Updated 07/02/24 @ 16:05 by [...] Infected dental carries Atherosclerotic heart disease of moapa coronary artery without angina pectoris Monomorphic ventricular [...] denosumab 60 mg/mL subcutaneous 60 mg subcut [id number] #1 mL 02/15/23 09/09/23 Rx syringe (Prolia) [...] physical activity do you participate in: none ivania/restoration: None seatbelt use: always do you feel [...] I discussed case with Dr. Alexander her painter helper sign who recommended obtaining the MRI from the [...] discuss with hospitalist. I was contacted by customer account technician again and told thatthey will not be able to do the MRI at our facility given that patient has both a pacemaker and a spinal stimulator and it would be off label and I needed to transfer her to another facility where they could do off label imaging. I was told [facility] would be able to do it and we contacted them and was told to try [facility] As patient's had prior studies done there before. Patient is comfortable with plan to go to [facility]. Discussed with transfer line as well as back specialist who recommended that we admit to medicine at their facility and they do have a protocol for obtaining the MRI where she would have to be in the MRI further 30 minutes and then out for 90 minutes then back in. Patient was medicated with morphine and Zofran. She willbe transferred to [facility] for definitive care. Concern for [...] % (Auto) 50.2 Lymph % (Auto) 40.0 [place]ima % (Auto) 6.4 Eos % (Auto) 2.5 Baso % (Auto) 0.4 Absolute Neuts (auto) 4.0 Absolute Lymphs (auto) 3.18 Nucleated RBC % 0 Discharge Plan Triage Chief Complaint: Back ED Provider: Ungur,Remus Dx/Rx/DC Orders Clinical Impression: Back pain Prescriptions: [...] Prolia 60 mg/mL syringe 60 mg subcut [id number] Qty: 1 2RF Patient Comments: due for [...] MD [Primary Care Provider] - Print Language: Vietnamese Disposition Disposition: DC/Tx to Another Type of HCF What to do if you have Problems For any increased pain, shortness of breath, bleeding, nausea or vomiting, chestpain, or any unexpected problems, contact your Primary Care Provider. Call [facility] ([phone]) or report to the closest Emergency Room. Call 911 if necessary. 07/02/242208 <Electronically signed by Kati Huddleston DO> Cosigner Signature (if applicable): CC: Dr. Charla Wadsworth MD ~ Signed [facility] Work Phone: [phone]) 524-192904-21-2025 Discharge summary Author Virgil Daniels [facility] Note Date/Time June 29, 2024 6:2 9pm [facility] Medical Records Department [address] [place] [address] Emergency Department Summary 06/29/24 MR#: [id number] Acct: [id number] Name: RAMSES BRADSHAW Rep #:[id number] : 1965 58 From: Virgil Daniels MD [...] Prior similar symptoms: Yes Recent Illness/Hospitalization: Yes [facility] Medical History Diabetes Type 2 diabetes mellitus [...] Infected dental carries 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 She was not prescribed [place] calcitonin nasal spray. She did take a Percocet at approximately 1500. She does have history of osteoporosis. In light of this we will treat her pain with IV morphine, lidocaine patch and will prescribe calcitonin [place] nasal spray. Will not prescribe NSAIDs because [...] Prolia 60 mg/mL syringe 60 mg subcut [id number] Qty: 1 2RF Patient Comments: due for [...] Care Provider] - As Needed Print Language: Vietnamese Disposition Disposition: Home, Self Care What to do if you have Problems For any increased pain, shortness of breath, bleeding, nausea or vomiting, chestpain, or any unexpected problems, contact your Primary Care Provider. Call [facility] ([phone]) or report to the closest Emergency Room. Call 911 if necessary. 06/29/24 6984 <Electronically signed by Virgil Daniels MD> Cosigner Signature (if applicable): CC: Dr. Charla Wadsworth MD ~ Signed [facility] Work Phone: [phone]) 853-181804-05-2025 [address] [facility]04-05-2025 Radiology [address] [facility]04-05-2025 Discharge summary Author Gigi Barton [facility] Note Date/Time June 13, 2024 7:36 pm [facility] Medical Records Department [address] [place] [address] Emergency Department Summary 06/13/24 MR#: [id number] Acct: [id number] Name: RAMSES BRADSHAW Rep #:[id number] : 1965 58 From: Gigi Barton MD [...] especially when she moves her right arm. 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 Reading Location: [facility] Thoracic Spine CT 06/13/24 18:42 IMPRESSION: Heterogeneous appearance of the T8 vertebral body, suspicious for fracture likely chronic. Please correlate clinically. If clinically indicated MRI of the thoracic spine may be helpful for further characterization. Degenerative changes of the thoracic spine. Reading Location: [facility] Discharge Plan Triage Chief Complaint: Back ED [...] Prolia 60 mg/mL syringe 60 mg subcut [id number] Qty: 1 2RF Patient Comments: due for [...] physician as soon as possible. Print Language: Vietnamese Disposition Disposition: Home, Self Care What to do if you have Problems For any increased pain, shortness of breath, bleeding, nausea or vomiting, chestpain, or any unexpected problems, contact your Primary Care Provider. Call [facility] ([phone]) or report to the closest Emergency Room. Call 911 if necessary. 06/13/241935 <Electronically signed by Gigi Barton MD> Cosigner Signature (if applicable): CC: Dr. Charla Wadsworth MD ~ Signed [facility] Work Phone: 1(335) 424-506604-03-2025 Evaluation note* Diagnosis Onset Date Resolution Status Admit Date Presence of permanent cardia c pacemaker 2013 chronic June 11, 2024 9:29am Sick sinus syndrome chronic June 11, 2024 9:29am Chest pain acute June 11 9:31am Dizziness acute June 11 9:31am DENNISON (dyspnea on exertion) acute June 11, 2024 9:31am Fatigue acute June 11 9:31am Atherosclerotic heart diseas e of moapa coronary artery without angina pectoris chronic June [...] diabetes mellitus chronic July 22, 2024 9:32am [facility] Work Phone: 1(959) 467-111603-13-20[address] [facility]01-26-2025 [facility]01-24-2025 Evaluation note* Diagnosis Onset Date Resolution Status [...] 11 9:31am Atherosclerotic heart diseas e of moapa coronary artery without angina pectoris chronic June 9:31am Essential (primary) hypertension chronic June 11, 2024 9:31am Hyperlipidemia chronic June 11, 2024 9:31am Presence of permanent cardia c pacemaker 2013June 11, 2024 9:31am [facility] Work Phone: 1(153) 683-616401-24-2025 Evaluation note* Diagnosis Onset Date Resolution Status Admit Date Acute exacerbation of chroni c obstructive pulmonary disease resolved Ja nuary 2024 6:10pm Hypoxia resolved April 03, 2024 6:10pm Blood glucose elevated acute Fe 2024 9:34am Dark urine acute April 20, 2024 9:34am COPD (chronic obstructive pulmonary disease) chronic April 9:34am Essential (primary) hypertension chronic April 20 2 025 9:34am Hyperlipidemia chronic April 112024 9:34am Dental caries inactive April 202024 9:34am Presence of permanent cardia c pacemaker 2013June 11, 2024 9:29am Sick sinus syndrome chronic June 11, 2024 9:29am Chest pain acute June 11 9:31am Dizziness acute June 11 9:31am DENNISON (dyspnea on exertion) acute June 11, 2024 9:31am Fatigue acute June 11 9:31am Atherosclerotic heart diseas e of moapa coronary artery without angina pectoris chronic June 9:31am Essential (primary) hypertension June 11, 2024 9:31am Hyperlipidemia chronic June 11, 2024 9:31am Presence of permanent cardia c pacemaker 2013June 11, 2024 9:31am Hypersomnolence acute July 22, 2024 9:32am Ambulatory dysfunction chronic 2024 9:32am Anxiety and depression chronic 2024 9:32am Chronic lower back pain chronic M ay 2024 9:32am Hypertension chronic July 22, 20 25 9:32am Type 2 diabetes mellitus chronic July 22, 2024 9:32am [facility] Work Phone: 1(648) 433-766911-18-2024 Evaluation note* Diagnosis Onset Date Resolution Status Admit Date Chest pain acute January 27, 2024 10:38am UTI (urinary tract infection) acute January 27, 2024 10:38am Anxiety and depression chronic No vember 2023 10:38am Essential (primary) hypertension chronic January 26, 2 024 10:38am Acute exacerbation of chroni c obstructive pulmonary disease resolved Ja nuary 2024 6:10pm Hypoxia resolved April 03, 2024 6:10pm Blood glucose elevated acute Fe bru2024 9:34am Dark urine acute April 20, 2024 9:34am COPD (chronic obstructive pulmonary disease) chronic April 9:34am Essential (primary) hypertension chronic April 20, 2 025 9:34am Hyperlipidemia chronic April 112024 9:34am Dental caries inactive April 202024 9:34am [facility] Work Phone: 1(902) 519-765709-23-2024 [facility]09-20-2024 [facility]09-25-2023 Discharge summary Author Keon Ramirez [facility] December 03, 2022 11:32pm Note Date/Time December 03, 2022 6:47pm [facility] Medical Records Department [address] [place] [address] Emergency Department Summary 12/03/22 MR#: [id number] Acct: [id number] Name: RAMSES BRADSHAW Rep #:[id number] : 1965 57 From: Keon Marina PCP: [...] Anxiety and depression 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 MI interval was 212 ms. QRS interval was normal at 80 ms. QTc interval was normal at 452 ms. [place] was normal at 35. There are no [...] your Primary Care Provider. Call [facility] ([phone]) or report to the closest Emergency Room. Call 911 if necessary. 12/03/22 6050 <Electronically signed by Keon Ramirez DO> Cosigner Signature (if applicable): CC: Dr. Charla Wadsworth MD ~ Signed [facility] Work Phone: 1(300) 441-647008-02-2021 [facility] ACCOUNT SEX AGE ADMIT DISCHARGE PT MED. RECORD# NUMBER DATE DATE TYPE LEEANN [id number] F 55 09[birth year]22[birth year]20 2 RAMSES Rodríguez [id number] ROOM: [id number] DATE OF : 65 DICTATING [...] reveal an inde (more content not included)... [facility] Onset Date Resolution Status Monomorphic ventricular tachycardia chronic Sick sinus syndrome chronic Presence of permanent cardiac pacemaker 2013 resolved Chest pain acute Atherosclerotic heart diseas e of moapa coronary artery without angina pectoris chronic Essential (primary) hypertension chronic Hyperlipidemia chronic Presence of permanent cardiac pacemaker 2013 resolved [facility] Work Phone: Evaluation note* Diagnosis Onset Date Resolution Status Chest pain acute Atherosclerotic heart diseas e of moapa coronary artery without angina pectoris chronic Essential (primary) hypertension chronic Hyperlipidemia chronic Presence of permanent cardiac pacemaker 2014 resolved [facility] Work Phone: Evaluation note* Diagnosis Onset Date Resolution Status Encephalopathy acute resolve d Encephalopathy acute Polypharmacy acute Essential (primary) hypertension chronic [facility] Work Phone: Evaluation note* Diagnosis Onset Date Resolution Status Encephalopathy acute resolve d Encephalopathy acute Polypharmacy acute Essential (primary) hypertension chronic [id number] acute Tobacco use disorder, continuous acute Primary malignant neuroendocrine tumor of stomach chronic [facility] Work Phone: Evaluation note* Diagnosis Onset Date Resolution Status [id number] acute Tobacco use disorder, continuous acute Primary malignant neuroendocrine tumor of stomach chronic Atherosclerotic heart diseas e of moapa coronary artery without angina pectoris chronic Essential (primary) hypertension chronic Hyperlipidemia chronic Presence of permanent cardiac pacemaker 2013 resolved Monomorphic ventricular tachycardia chronic Sick sinus syndrome chronic Presence of permanent cardiac pacemaker 2013 resolved Health care maintenance acut e Essential (primary) hypertension chronic Hyperlipidemia chronic Pain of left thumb chronic [facility] Work Phone: Evaluation note* Diagnosis Onset Date Resolution Status Monomorphic ventricular tachycardia chronic Sick sinus syndrome chronic Presence of permanent cardiac pacemaker 2013 resolved Atherosclerotic heart diseas e of moapa coronary artery without angina pectoris chronic Essential (primary) hypertension chronic Hyperlipidemia chronic Presence of permanent cardiac pacemaker 2014 resolved [facility] Work Phone: Evaluation note* Diagnosis Onset Date Resolution Status COPD (chronic obstructive pulmonary disease) chronic Debility chronic Essential (primary) hypertension chronic Hypothyroidism chronic Lumbar radiculopathy chronic [facility] Work Phone: Evaluation note* Diagnosis Onset Date Resolution Status COPD (chronic obstructive pulmonary disease) chronic Debility chronic Essential (primary) hypertension chronic Hypothyroidism chronic Lumbar radiculopathy chronic Sick sinus syndrome chronic Presence of permanent cardiac pacemaker 2013 resolved Atherosclerotic heart diseas e of moapa coronary artery without angina pectoris chronic Essential (primary) hypertension chronic Hyperlipidemia chronic Presence of permanent cardiac pacemaker 2013 resolved Encounter for examination fo r admission to assisted living facility acute Osteopenia 2022 acute Polypharmacy acute COPD (chronic obstructive pulmonary disease) chronic Essential (primary) hypertension chronic Hyperlipidemia chronic Lumbar radiculopathy chronic ELOY (obstructive sleep apnea) chronic [facility] Work Phone: Evaluation note* Diagnosis Onset Date Resolution Status Encounter for examination fo r admission to assisted living facility acute Osteopenia 2022 acute Polypharmacy acute COPD (chronic obstructive pulmonary disease) chronic Essential (primary) hypertension chronic Hyperlipidemia chronic Lumbar radiculopathy chronic ELOY (obstructive sleep apnea) chronic [facility] Work Phone: Evaluation note* Diagnosis Spinal stenosis of cervical region- Primary Spinal stenosis in cervical region Thoracic myelopathy Spondylosis with myelopathy, thoracic region [facility] Diagnosis Thoracic myelopathy- Primary Spondylosis with myelopathy, thoracic region Spinal stenosis of cervical region Spinal stenosis in cervical region documented in this encounter [facility] note* Diagnosis Spinal stenosis of cervical region Spinal stenosis in cervical region Thoracic myelopathy Spondylosis with myelopathy, thoracic region [facility] Diagnosis Weakness of both lower extremities- Primary Obesity, Class III, BMI 40-49.9 (morbid obesity) Morbid obesity [facility] Orders* Dermatology Location: None Selected * Orthopedics Location: None Selected [facility] Work Phone: Hospital Discharge instructions Additional Instructions Left hip x-ray negative. Continue using your walker, pain medications per your pain doctors. Follow-up with Dr. Alexander. Return if any worsening symptoms.[facility] Work Phone: Hospital Discharge instructions Additional Instructions Your x-ray does not show any acute fracture or dislocation. Wear the Alejandro wrap. Try to elevate. Take Tylenol for pain at home. Please follow-up with orthopedics and pain management.[facility] Work Phone: Hospital Discharge instructions [...] by your doctor and follow-up with your doctor/patrol mother for [facility] Work Phone: Hospital Discharge instructions Additional Instructions Your ultrasound/venous duplex did not show any signs of blood clot in your right or left leg. Continue your Eliquis as directed by your doctor because of the blood clot in your left arm and return to the ER should you have any [facility] Work Phone: Hospital Discharge instructions Additional Instructions Continue your Percocet as directed for pain. Follow-up with your pain management physician as soon as possible.[facility] Work Phone: Hospital Discharge instructions [...] care physician for further outpatient evaluation and management.[facility] Work Phone: Hospital Discharge instructionsAdditional Instructions Follow-up with your PCP and return for any worsening symptoms or if you have any other concerns.[facility] Work Phone: Reason for referral (narrative)No reason for referral information availableUcla [facility] Work Phone: Reshud for visit Narrative* MRI/CT (Urgent) - Closed Specialty Diagnoses / Procedures Referred By Caryn farrell Referred To Contact [facility] Diagnoses Thoracic myelopathy Procedures MRI THORACIC SPINE WO IVCON MRI SPINAL CANAL THORACIC W/O CONTRAST MATRL Butch Mays MD [address] [place] [address] [place] [id number] Phone: tel: fax: [place] [address] Referral ID Status Reason Start Date Expiration Date V isits Requested Visits Authorized [id number] Closed Auto-Generate d Referral 07/20/2024 2025 1 1 [facility] Summary Purpose Family History No Family History Records Found Relationship Condition Age at Onset Recorded Date/T silvia daughter Multiple sclerosis Unknown father Coronary artery disease Unknown Cardiac disease Unknown Multiple sclerosis Unknown grandfather Cardiac disease Unknown uncle Cardiac disease Unknown sister Malignant neoplasm of colon Unknown mother Hypertension Unknown Advance Directives No Advanced Directives Records FoundDocuments on File Type Date Recorded Patient Athletic Monitor Expl anation Power of Bilingual Counter Sales Retail Advance Directive Response Recorded Date/ Time Advance Directives No August 17 2 11:41am Living Will No August 17, 2021 1 1:41am Power of Bilingual [employer] No August 17, 2021 11:41am Advance Directive Response Recorded Date/ Time Advance Directives No August 17 2 11:41am Living Will No October 22 2 4:33pm Power of Bilingual [employer] No October 22, 2 022 4:33pm Advance Directive Response Recorded Date/ Time Advance Directives No August 17 2 10:41am Living Will No October 23 1:55pm Power of Bilingual [employer] No October 23 022 1:55pm Advance Directive Response Recorded Date/ Time Advance Directives No August 17 2 11:41am Living Will No November 13, 2 023 10:33pm Power of Bilingual [employer] No November 13, 2022 10:33pm Advance Directive Response Recorded Date/ Time Advance Directives No August 17 2 11:41am Living Will No November 15, 2 023 2:06pm Power of Bilingual [employer] No November 15, 2022 2:06pm Advance Directive Response Recorded Date/ Time Advance Directives No August 17 11:41am Living Will No November 24, 2022 8:43pm Power of Bilingual [employer] No November 8:43pm Advance Directive Response Recorded Date/ Time Advance Directives No August 17 11:41am Living Will No December 03, 2022 4:26pm Power of Bilingual [employer] No November 4:26pm Advance Directive Response Recorded Date/ Time Advance Directives No August 17 10:41am Living Will No December 03, 2022 3:26pm Power of Bilingual [employer] No November 3:26pm Advance Directive Response Recorded Date/ Time Advance Directives No August 17 11:41am Living Will No May 24, 2023 8:18pm Power of Bilingual [employer] No May 23 8:18pm Advance Directive Response Recorded Date/ Time Advance Directives No August 17 11:41am Living Will No July 12, 2023 12 :38am Power of Bilingual [employer] No July 12, 2023 12:38am Advance Directive Response Recorded Date/ Time Living Will No October 20 2:47pm Power of Bilingual [employer] No October 20, 2 024 2:47pm Living Will No April 15 8:44pm Power of Bilingual [employer] No April 15, 2024 8:44pm Living Will No May 21, 2024 9:47pm Power of Bilingual [employer] No May 21 9:47pm Living Will No April 03 7:49pm Power of Bilingual [employer] No April 03, 2024 7:49pm Living Will No May 04, 025 4:11pm Power of Bilingual [employer] No May 04, 2024 4:11pm Living Will No May 12, 2024 10:08pm Power of Bilingual [employer] No May 12 10:08pm Advance Directives No October 21, 2023 2:47pm Advance Directive Response Recorded Date/ Time Living Will No April 15 8:44pm Do you have a Healthcare Power of Bilingual Counter Sales [employer]? No April 15, 2024 8:44pm Living Will No May 21, 2024 9:47pm Do you have a Healthcare Power of Bilingual Counter Sales [employer]? No May 21, 2024 9:47pm Living Will No June 13, 2024 6:35pm Do you have a Healthcare Power of Bilingual Counter Sales [employer]? No June 13, 2024 6:35pm Living Will No April 03 7:49pm Do you have a Healthcare Power of Bilingual Counter Sales [employer]? No April 03, 2024 7:49pm Living Will No May 04, 025 4:11pm Do you have a Healthcare Power of Bilingual [employer] Sales [employer]? No May 04, 2024 4:11pm Living Will No May 12, 2024 10:08pm Do you have a Healthcare Power of Bilingual Counter Sales [employer]? No May 12, 2024 10:08pm Advance Directives No October 21, 2023 2:47pm Advance Directive Response Recorded Date/ Time Living Will No April 15 8:44pm Do you have a Healthcare Power of Bilingual [employer] Sales [employer]? No April 15, 2024 8:44pm Living Will No May 21, 2024 9:47pm Do you have a Healthcare Power of Bilingual [employer] Sales [employer]? No May 21, 2024 9:47pm Living Will No June 13, 2024 6:35pm Do you have a Healthcare Power of Bilingual [employer] Sales [employer]? No June 13, 2024 6:35pm Living Will No June 29, 2024 5:36pm Do you have a Healthcare Power of Bilingual [employer] Sales [employer]? No June 29, 2024 5:36pm Living Will No April 03 7:49pm Do you have a Healthcare Power of Bilingual [employer] Sales [employer]? No April 03, 2024 7:49pm Living Will No May 04 025 4:11pm Do you have a Healthcare Power of Bilingual [employer] Sales [employer]? No May 04, 2024 4:11pm Living Will No May 12, 2024 10:08pm Do you have a Healthcare Power of Bilingual Counter Sales [employer]? No May 12, 2024 10:08pm Advance Directives No October 21, 2023 2:47pm Advance Directive Response Recorded Date/ Time Living Will No April 15 8:44pm Do you have a Healthcare Power of Bilingual Counter Sales [employer]? No April 15, 2024 8:44pm Living Will No May 21, 2024 9:47pm Do you have a Healthcare Power of Bilingual [employer] Sales [employer]? No May 21, 2024 9:47pm Living Will No June 13, 2024 6:35pm Do you have a Healthcare Power of Bilingual [employer] Sales [employer]? No June 13, 2024 6:35pm Living Will No June 29, 2024 5:36pm Do you have a Healthcare Power of Bilingual [employer] Sales [employer]? No June 29, 2024 5:36pm Living Will No April 03 7:49pm Do you have a Healthcare Power of Bilingual [employer] Sales [employer]? No April 03, 2024 7:49pm Living Will No May 04 025 4:11pm Do you have a Healthcare Power of Bilingual [employer] Sales [employer]? No May 04, 2024 4:11pm Living Will No May 12, 2024 10:08pm Do you have a Healthcare Power of Bilingual [employer] Sales [employer]? No May 12, 2024 10:08pm Do you have a Healthcare Power of Bilingual [employer] Sales [employer]? No July 02, 2024 2:31pm Advance Directives No October 21, 2023 2:47pm Date Activated Date Inactivated Comments 07/03/2024 4:22 AM 07/04/2024 5:12 PM Question Answer Comments Full Code Order Discussed With: Patient Advance Directive Response Recorded Date/ Time Living Will No April 15 8:44pm Do you have a Healthcare Power of Bilingual Counter Sales [employer]? No April 15, 2024 8:44pm Living Will No May 21, 2024 9:47pm Do you have a Healthcare Power of Bilingual [employer] Sales [employer]? No May 21, 2024 9:47pm Living Will No June 13, 2024 6:35pm Do you have a Healthcare Power of Bilingual [employer] Sales [employer]? No June 13, 2024 6:35pm Living Will No June 29, 2024 5:36pm Do you have a Healthcare Power of Bilingual [employer] Sales [employer]? No June 29, 2024 5:36pm Living Will No April 03 7:49pm Do you have a Healthcare Power of Bilingual [employer] Sales [employer]? No April 03, 2024 7:49pm Living Will No May 04 4:11pm Do you have a Healthcare Power of Bilingual [employer] Sales [employer]? No May 04, 2024 4:11pm Living Will No May 12, 2024 10:08pm Do you have a Healthcare Power of Bilingual [employer] Sales [employer]? No May 12, 2024 10:08pm Do you have a Healthcare Power of Bilingual [employer] Sales [employer]? No July 02, 2024 2:31pm Do you have a Healthcare Power of Bilingual [employer] Sales [employer]? No July 22, 2024 8:18pm Advance Directives No October 21, 2023 2:47pm Date Activated Date Inactivated Comments 07/03/2024 4:22 AM 07/04/2024 5:12 PM Question Answer Comments Full Code Order Discussed With: Patient Advance Directive Response Recorded Date/ Time Living Will No May 21, 2024 9:47pm Do you have a Healthcare Power of Bilingual Counter Sales [employer]? No May 21, 2024 9:47pm Living Will No June 13, 2024 6:35pm Do you have a Healthcare Power of Bilingual Counter Sales [employer]? No June 13, 2024 6:35pm Living Will No June 29, 2024 5:36pm Do you have a Healthcare Power of Bilingual Counter Sales [employer]? No June 29, 2024 5:36pm Living Will No May 04 4:11pm Do you have a Healthcare Power of Bilingual Counter Sales [employer]? No May 04, 2024 4:11pm Living Will No May 12, 2024 10:08pm Do you have a Healthcare Power of Bilingual [employer] Sales [employer]? No May 12, 2024 10:08pm Do you have a Healthcare Power of Bilingual [employer] Sales [employer]? No July 02, 2024 2:31pm Do you have a Healthcare Power of Bilingual [employer] Sales [employer]? No July 22, 2024 8:18pm Advance Directives No October 21, 2023 2:47pm Advance Directive Response Recorded Date/ Time Living Will No June 13, 2024 6:35pm Do you have a Healthcare Power of Bilingual [employer] Sales [employer]? No June 13, 2024 6:35pm Living Will No June 29, 2024 5:36pm Do you have a Healthcare Power of Bilingual [employer] Sales [employer]? No June 29, 2024 5:36pm Do you have a Healthcare Power of Bilingual [employer] Sales [employer]? No July 02, 2024 2:31pm Do you have a Healthcare Power of Bilingual [employer] Sales [employer]? No July 22, 2024 8:18pm Advance Directives No October 21, 2023 2:47pm Advance Directive Response Recorded Date/ Time Living Will No June 13, 2024 6:35pm Do you have a Healthcare Power of Bilingual [employer] Sales [employer]? No June 13, 2024 6:35pm Living Will No June 29, 2024 5:36pm Do you have a Healthcare Power of Bilingual [employer] Sales [employer]? No June 29, 2024 5:36pm Do you have a Healthcare Power of Bilingual [employer] Sales [employer]? No July 02, 2024 2:31pm Do you have a Healthcare Power of Bilingual Counter Sales [employer]? No July 22, 2024 8:18pm Do you have a Healthcare Power of Bilingual Counter Sales [employer]? No October 10, 2024 4:02pm Advance Directives No October 21, 2023 2:47pm Reason for Referral Status Reason Specialty Diagnoses / Procedures Re ferred By Contact Referred To Contact [facility] Required Lab Diagnoses Other malignant neuroendocrine tumors Family history of colon cancer Procedures Genetic Sendout: Common Hereditary Cancers Panel Dev Bridges MD [address] [place] [address], [address] [place] [address] Assessments Diagnosis Other malignant neuroendocrine tumors Family [...] pacemaker Chest pain Atherosclerotic heart disease of [place] coronary artery without angina pectoris Essential (primary) hypertension Hyperlipidemia Presence of permanent cardiac pacemaker Chief Complaint 9 M FU CAD CAD CHEST PAIN BACK AND LEG PAIN/RX HERE BACK PAIN Reason for Visit Chest pain Atherosclerotic heart disease of [place] coronary artery without angina pectoris Essential (primary) [...] Encephalopathy acute Encephalopathy Polypharmacy Essential (primary) hypertension [id number] Tobacco use disorder, continuous Primary malignant neuroendocrine tumor of stomach Chief Complaint LUNG CANCER SCREENIN G TOBACCO USE 1YR NO LABS REVIEW CT pacer check/ 2:30 w MMM check up Reason for Visit [id number] Tobacco use disorder, continuous 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 Essential (primary) [...] permanent cardiac pacemaker Atherosclerotic heart disease of [place] coronary artery without angina pectoris Essential (primary) hypertension Hyperlipidemia Presence of permanent cardiac pacemaker Chief Complaint 6 MO CK / MMM 1:30 6 MO F/U / AYLIN 1:00 SCREENING HIP PAIN fall, left hip pain Reason for Visit Monomorphic ventricu lar tachycardia Sick sinus syndrome Presence of permanent cardiac pacemaker Atherosclerotic heart disease of [place] coronary artery without angina pectoris Essential (primary) hypertension Hyperlipidemia Presence of permanent cardiac pacemaker Chief Complaint 6 MO CK / MMM 1:30 6 MO F/U / AYLIN 1:00 SCREENING HIP PAIN fall, left hip pain EDEMA Reason for Visit Monomorphic ventricu lar tachycardia Sick sinus syndrome Presence of permanent cardiac pacemaker Atherosclerotic heart disease of [place] coronary artery without angina pectoris Essential (primary) hypertension Hyperlipidemia Presence of permanent cardiac pacemaker Chief Complaint 6 MO CK / MMM 1:30 6 MO F/U / AYLIN 1:00 SCREENING HIP PAIN fall, left hip pain EDEMA CHEST PAIN Reason for Visit Monomorphic ventricu lar tachycardia Sick sinus syndrome Presence of permanent cardiac pacemaker Atherosclerotic heart disease of [place] coronary artery without angina pectoris Essential (primary) [...] permanent cardiac pacemaker Atherosclerotic heart disease of [place] coronary artery without angina pectoris Essential (primary) [...] :09am DENTAL April 15, 2024 5 :27pm [facility] FU/DENTAL CLEARANCE/3 M FU April 20, [...] :09am DENTAL April 15, 2024 5 :27pm [facility] FU/DENTAL CLEARANCE/3 M FU April 20, [...] April 20, 2024 9:34am Essential (primary) hypertension uar 2024 9:34am Hyperlipidemia April 20, 2024 9:34am Dental caries April 20, 2024 9:34am Presence of permanent cardiac pacemaker June 11, 2024 9:29am Sick sinus syndrome June 11, 2024 9:29 am Chest pain June 11, 2024 9:31 am Dizziness June 11, 2024 9:31 am DENNISON (dyspnea on exertion) June 11 9:31am Fatigue June 11, 2024 9:31 am Atherosclerotic heart diseas e of [place] coronary artery without angina pectoris June 11, 2024 9:31am Essential (primary) hypertension June 112024 9:31am Hyperlipidemia June 11, 2024 9:31 am Presence of permanent cardiac pacemaker June 11, 2024 9:31am Chief Complaint Admit Date HYPOXIA AECOPD April 03, 2024 6 :10pm HYPOXIA AECOPD April 04, 2024 7 :23am HYPOXIA AECOPD April 05, 2024 7 :09am DENTAL April 15, 2024 5 :27pm [facility] FU/DENTAL CLEARANCE/3 M FU April 20, [...] :09am DENTAL April 15, 2024 5 :27pm [facility] FU/DENTAL CLEARANCE/3 M FU April 20, [...] :09am DENTAL April 15, 2024 5 :27pm [facility] FU/DENTAL CLEARANCE/3 M FU April 20, [...] 02, 2024 2:2 7pm 3 M FU [facility] 07/02-07/04July 092024 9:32am Chief Complaint Admit Date HYPOXIA AECOPD April 03, 2024 6 :10pm HYPOXIA AECOPD April 04, 2024 7 :23am HYPOXIA AECOPD April 05, 2024 7 :09am DENTAL April 15, 2024 5 :27pm [facility] FU/DENTAL CLEARANCE/3 M FU April 20, [...] 02, 2024 2:2 7pm 3 M FU [facility] 07/02-07/04July 092024 9:32am complaint July [...] 9:31 am Atherosclerotic heart diseas e of [place] coronary artery without angina pectoris June 11, [...] 02, 2024 2:2 7pm 3 M FU [facility] 07/02-07/04July 092024 9:32am complaint July 22, [...] 9:31 am Atherosclerotic heart diseas e of [place] coronary artery without angina pectoris June 11, [...] 02, 2024 2:2 7pm 3 M FU [facility] July 092024 9:32am complaint July 22, 2024 8:14p m Pacer Check Remote August 17, 2024 3:43a m STOMACH PAIN, NEASEOUS October 02, 2024 1 :02pm Chief Complaint Admit Date BACK PAIN June 13, 2024 6:31 pm DIZZINESS June 26, 2024 7:1 4am Amb Documentation June 29, 2024 8:2 8am CHEST OTHER June 29, 2024 5:2 7pm back July 02, 2024 2:2 7pm 3 M FU [facility] July 092024 9:32am complaint July 22, 2024 8:14p m Pacer Check Remote August 17, 2024 3:43a m STOMACH PAIN, NEASEOUS October 02, 2024 1 :02pm fall October 10, 2024 3:5 5pm Reason for Visit Admit Date Hypersomnolence July 22, 2024 9:32a m Ambulatory dysfunction July 22, 2024 9: 32am Anxiety and depression July 22, 2024 9: 32am Chronic lower back pain July 22, 2024 9 :32am Hypertension July 22, 2024 9:32a m Type 2 diabetes mellitus July 22, 2024 9:32am Diarrhea October 02, 2024 1:02 pm Nausea & vomiting October 02, 2024 1:02 pm Additional Source Comments INFORMATION SOURCE (unrecogn ized section and content) DATE CREATED AUTHOR 09/07/2018 [facility] DATE CREATED AUTHOR AUTHOR'S ORGANIZ ATION 10/11/2018 [facility] DATE CREATED AUTHOR AUTHOR'S ORGANIZ ATION 05/10/2020 [facility] ([place]) DATE CREATED AUTHOR AUTHOR'S ORGANIZ ATION 10/10/2020 [facility] DATE CREATED AUTHOR AUTHOR'S ORGANIZ ATION 07/02/2024 [facility] DATE CREATED AUTHOR AUTHOR'S ORGANIZ ATION 08/07/[address] [facility] DATE CREATED AUTHOR AUTHOR'S ORGANIZ ATION 08/13/2024 [facility] DATE CREATED AUTHOR AUTHOR'S ORGANIZ ATION 10/12/2024 [facility] Reason for Visit (unrecogniz ed section and content) Status Reason Specialty Diagnoses / Procedures Re ferred By Contact Referred To Contact [facility] Required Lab Diagnoses Other malignant neuroendocrine tumors Family history of colon cancer Procedures Genetic Sendout: Common Hereditary Cancers Panel Dev Bridges MD [address] [place] [address], [address] [place] [address] Reason Comments Orders Received message for m [...] MD Primary Care Provider Active Candy Hsu VP SOFTWARE SUPPORT, VP [employer] SU[employer]-C Attending Provider, Referring Provider Active Team Status: [...] Keon Ramirez DO Attending Provider, Emergency P rovider Active [...] Imelda Hernandez Attending Provider Active Start: A 2024 End: June 11, 2024 Team Status: Inactive Member Role Status Dates Dr. Charla Wadsworth MD Primary Care Provider Active Start: June 11, 2024 End: June 11, 2024 Dr. Charla Wadsworth MD Referring Provider Active Start: June 11, 2024 End: June 11, 2024 Kareen Bradshaw VP SOFTWARE SUPPORT, VP SOFTWARE SU[employer]-C Attending Provider Active Start: June 11, 2024 End: June 11, 2024 Team Status: Active Member Role Status Dates Dr. Charla Wadsworth MD Primary Care Provider Active Start: June 11, 2024 Kareen Bradshaw VP SOFTWARE SUPPORT, VP SOFTWARE SUPPORT-C Attending Provider Active Start: June 11, 2024 Kareen Bradshaw VP SOFTWARE SUPPORT, VP SOFTWARE SUPPORT-C Referring Provider Active Start: June 11, 2024 Team Status: Inactive Member Role Status Dates Dr. Charla Wadsworth MD Primary Care Provider Active Start: June 13, 2024 End: June 13, 2024 Gigi Batron MD Emergency Provider Active Star t: June [...] 2024 End: June 11, 2024 Kareen Bradshaw VP SOFTWARE SUPPORT, VP SOFTWARE SUPPORT-C Attending Provider Active Start: June 11, 2024 End: June 11, 2024 Kareen Bradshaw VP SOFTWARE SUPPORT, VP SOFTWARE SUPPORT-C Referring Provider Active Start: June 11, 2024 [...] Active Start: June 26, 2024 Kareen Bradshaw VP SOFTWARE SUPPORT, VP SOFTWARE SUPPORT-C Attending Provider Active Start: June 26, 2024 Kareen Bradshaw VP SOFTWARE SUPPORT, VP SOFTWARE SUPPORT-C Referring Provider Active Start: June 26, 2024 Team Status: Active Member Role Status Dates Dr. Charla Wadsworth MD Primary Care Provider Active Start: June 26, 2024 Dr. Keon France MD Attending Provider Active S tart: June 26, 2024 Team Status: Active Member Role Status Dates Dr. Charla Wadsworth MD Primary Care Provider Active Start: June 29, 2024 Kareen Bradshaw VP SOFTWARE SUPPORT, VP SOFTWARE SUPPORT-C Attending Provider Active Start: June 29, 2024 [...] 2024 End: June 26, 2024 Kareen Bradshaw VP SOFTWARE SUPPORT, VP SOFTWARE SUPPORT-C Attending Provider Active Start: June 26, 2024 End: June 26, 2024 Kareen Bradshaw VP SOFTWARE SUPPORT, VP SOFTWARE SUPPORT-C Referring Provider Active Start: June 26, 2024 End: June 26, 2024 Team Status: Inactive Member Role Status Dates Dr. Charla Wadsworth MD Primary Care Provider Active Start: July 02, 2024 End: July 03, 2024 Dr. Kati Huddleston DO Referring Provider Active S tart: July 02, 2024 End: July 03, 2024 Dr. Kati Huddleston , DO Emergency Provider Active S tart: July 02, 2024 End: July 03, 2024 Campus Aide Relationship Specialty Start Date End Date Charla Wadsworth MD [address] [place] [address] PCP - General Internal Medicine 07/03/24 Campus Aide Relationship Specialty Start Date End Date Charla Wadsworth MD [address] [place] [address] PCP - General Internal Medicine 07/03/24 Team [...] S tart: June 26, 2024 Kareen Bradshaw VP SOFTWARE SUPPORT, VP SOFTWARE SUPPORT-C Referring Provider Active Start: June 26, 2024 [...] 2024 End: July 03, 2024 Dr. Kati Huddleston , Attending Provider Active S tart: July 02, 2024 End: July 03, 2024 Dr. Kati Huddleston DO Referring Provider Active S tart: July 02, 2024 End: July 03, 2024 Dr. Kati Huddleston DO Emergency Provider Active S tart: July [...] End: July 23, 2024 Dr. Chaim Maurer , Emergency Provider Active Start: July 22, 2024 End: July 23, 2024 Campus Aide Relationship Specialty Start Date End Date Charla Wadsworth MD [address] [place], [place] [id number] PCP - General Internal Medicine 07/03/24 Campus Aide Relationship Specialty Start Date End Date Charla Wadsworth MD [address] [place], [place] [id number] PCP - General Internal Medicine 07/03/24 Campus Aide Relationship Specialty Start Date End Date Charla Wadsworth MD [address] [place], [place] [id number] PCP - General Internal Medicine 07/03/24 Team [...] 2024 End: June 11, 2024 Kareen Bradshaw NP, VP SOFTWARE SUPPORT-C Attending Provider Active Start: June 11, 2024 End: June 11, 2024 Team Status: Inactive Member Role/Relationship Status Dates Dr. Charla Wadsworth MD Primary Care Provider Active Start: June 11, 2024 End: June 11, 2024 Kareen Bradshaw NP, VP SOFTWARE SUPPORT-C Attending Provider Active Start: June 11, 2024 End: June 11, 2024 Kareen Bradshaw VP SOFTWARE SUPPORT, VP SOFTWARE SUPPORT-C Referring Provider Active Start: June 11, 2024 [...] 2024 End: June 26, 2024 Kareen Bradshaw VP SOFTWARE SUPPORT, VP SOFTWARE SUPPORT-C Attending Provider Active Start: June 26, 2024 End: June 26, 2024 Kareen Bradshaw VP SOFTWARE SUPPORT, VP SOFTWARE SUPPORT-C Referring Provider Active Start: June 26, 2024 End: June 26, 2024 Team Status: Active Member Role/Relationship Status Dates Dr. Charla Wadsworth MD Primary Care Provider Active Start: June 26, 2024 Dr. Keon France MD Attending Provider Active S tart: June 26, 2024 Kareen Bradshaw VP SOFTWARE SUPPORT, VP SOFTWARE SUPPORT-C Referring Provider Active Start: June 26, 2024 Team Status: Active Member Role/Relationship Status Dates Dr. Charla Wadsworth MD Primary Care Provider Active Start: June 29, 2024 Kareen Bradshaw VP SOFTWARE SUPPORT, VP SOFTWARE SUPPORT-C Attending Provider Active Start: June 29, 2024 [...] 2024 End: July 03, 2024 Dr. Kati Huddleston DO Attending Provider Active S tart: July 02, 2024 End: July 03, 2024 Dr. Kati Huddleston DO Referring Provider Active S tart: July 02, 2024 End: July 03, 2024 Dr. Kati Huddleston DO Emergency Provider Active S tart: July [...] October 02, 2024 End: October 02, 2024 Team Status: Inactive Member Role/Relationship Status Dates Dr. Charla Wadsworth MD Primary Care Provider Active Start: June 13, 2024 End: June 13, 2024 Gigi Barton MD Attending Provider Active Star t: June 13, 2024 End: June 13, 2024 Gigi Barton MD Emergency Provider Active Star t: June 13, 2024 End: June 13, 2024 Team Status: Inactive Member Role/Relationship Status Dates Dr. Charal Wadsworth MD Primary Care Provider Active Start: June 26, 2024 End: June 26, 2024 Kareen Bradshaw VP SOFTWARE SUPPORT, VP SOFTWARE SUPPORT-C Attending Provider Active Start: June 26, 2024 End: June 26, 2024 Kareen Bradshaw VP SOFTWARE SUPPORT, VP SOFTWARE SUPPORT-C Referring Provider Active Start: June 26, 2024 End: June 26, 2024 Team Status: Active Member Role/Relationship Status Dates Dr. Charla Wadsworth MD Primary Care Provider Active Start: June 26, 2024 Dr. Keon France MD Attending Provider Active S tart: June 26, 2024 Kareen Bradshaw VP SOFTWARE SUPPORT, VP SOFTWARE SUPPORT-C Referring Provider Active Start: June 26, 2024 Team Status: Active Member Role/Relationship Status Dates Dr. Charla Wadsworth MD Primary Care Provider Active Start: June 29, 2024 Kareen Bradshaw VP SOFTWARE SUPPORT, VP SOFTWARE SUPPORT-C Attending Provider Active Start: June 29, 2024 [...] 2024 End: July 03, 2024 Dr. Kati Huddleston DO Attending Provider Active S tart: July 02, 2024 End: July 03, 2024 Dr. Kati Huddleston DO Referring Provider Active S tart: July 02, 2024 End: July 03, 2024 Dr. Kati Huddleston DO Emergency Provider Active S tart: July [...] October 02, 2024 End: October 02, 2024 Team Status: Inactive Member Role/Relationship Status Dates Dr. Charla Wadsworth MD Primary Care Provider Active Start: October 10, 2024 End: October 10, 2024 Dr. Virgil Daniels MD Emergency Provider Active Sta rt: October 10, 2024 End: October 10, 2024 Source Comments (unrecognize d section and content) In the event this informatio n is protected by the Federal Confidentiality of Alcohol and Drug Abuse Patient Records regulations: The Federal rules restrict any use of the information to criminally investigate or prosecute any alcohol or drug abuse patient.[facility] the event this information is protected by the Federal Confidentiality of Alcohol and Drug Abuse Patient Records regulations: The Federal rules restrict any use of the information to criminally investigate or prosecute any alcohol or drug abuse patient.[facility]In the event this information is protected by the Federal Confidentiality of Alcohol and Drug Abuse Patient Records regulations: The Federal rules restrict any use of the information to criminally investigate or prosecute any alcohol or drug abuse patient.[facility]In the event this information is protected by the Federal Confidentiality of Alcohol and Drug Abuse Patient Records regulations: The Federal rules restrict any use of the information to criminally investigate or prosecute any alcohol or drug abuse patient.[facility] the event this information is protected by the Federal Confidentiality of Alcohol and Drug Abuse Patient Records regulations: The Federal rules restrict any use of the information to criminally investigate or prosecute any alcohol or drug abuse patient.[facility] HospitalIn the event this information is protected by the Federal Confidentiality of Alcohol and Drug Abuse Patient Records regulations: The Federal rules restrict any use of the information to criminally investigate or prosecute any alcohol or drug abuse patient.[facility] HospitalIn the event this information is protected by the Federal Confidentiality of Alcohol and Drug Abuse Patient Records regulations: The Federal rules restrict any use of the information to criminally investigate or prosecute any alcohol or drug abuse patient.[facility] FOR RECORDS PERTAINING TO PATIENTS WHO ARE [...] BE BASED ON THE PRIMARY CLINICAL RECORDS. [facility] [employer] [facility]. provides no warranty or guarantee of the accuracy or completeness of information in this document.
--- NOTE | 2024-10-16 18:46 | RAD_ITS ---
PROCEDURE: TIBIA FIBULA 2 VIEWS 10/16/2024 REASON FOR EXAM: PAIN TECHNIQUE: Two views of the right tib fib COMPARISON: None available. FINDINGS: Hardware: None. Bones: No acute fractures or dislocations. Joints: Moderate degenerative changes of the knee and ankle. soft tissues: Soft tissues are unremarkable. Other: None. RAD/Tibia & Fibula 2 Views IMPRESSION: No acute fractures or dislocations. Moderate degenerate changes of the right k nee and ankle. Reading Location[facility]
--- NOTE | 2024-10-16 18:46 | RAD_ITS ---
PROCEDURE: CHEST 1 VIEW (PORTABLE) 10/16/2024 REASON FOR EXAM: PAIN TECHNIQUE: Frontal view of the chest. COMPARISON: 04/03/2024 FINDINGS: Normal heart size. Stimulator wires overlie the lower thoracic canal. Unremarkable cardiac pacer. Well inflated lungs. RAD/Chest 1 View (Portable) IMPRESSION: No acute findings. Reading Location: [place] [id number]
[2024-10-16 19:02] LABS: Hematocrit 42.8 % (37-47); Hemoglobin 13.8 g/dL (12.0-15.0); Immature Granulocytes Count 0.080 X10^3/uL (0.0-0.0); Mean Corp Hgb Conc 32.2 g/dL (32-36); Mean Corpuscular Volume 91.1 fL (81-99); Mean Platelet Vol. 10.2 fl (6.2-12.0); NRBC Flagged by Analyzer 0 % (0-5); Platelet Count 262 K/mm3 (150-450); RBC Distribution Width CV 14.5 % (11.6-14.6); RBC Distribution Width SD 48.4 fl (35.1-43.9); Red Blood Count 4.70 M/mm3 (4.2-5.4); White Blood Count 11.5 K/mm3 (4.4-11.0)
[2024-10-16 19:11] VITALS: BP 98/74; PULSE 68; RESP 14; O2SAT 97
[2024-10-16 19:26] LABS: AST(SGOT) 26 U/L (<=31); Alanine Aminotransfer ALT/SGPT 26 U/L (<=34); Albumin, Serum 4.3 g/dL (3.5-5.0); Alkaline Phosphatase 85 U/L (35-104); Anion Gap 13 (5-15); BUN 25 mg/dL (4-19); BUN/Creat Ratio 15.4 RATIO (10-20); Calcium,Total 9.7 mg/dL (7.6-11.0); Carbon Dioxide 22.9 mmol/L (21.0-32.0); Chloride 103 mmol/L (98-108); Estimated Creatinine Clearance 41.53 ml/min (50-250); Globulin 3.4 g/dL (2.2-4.2); Glucose 152 mg/dL (70-99); Potassium 4.3 mmol/L (3.3-5.1)
[2024-10-16 19:33] VITALS: BP 128/73; PULSE 64; RESP 17; O2SAT 96
[2024-10-16 19:39] LABS: Lipase 30 U/L (13-75); Troponin T High Sensitivity 7 ng/L (<=14)
--- NOTE | 2024-10-16 19:47 | RAD_ITS ---
PROCEDURE: PELVIS 1 OR 2 VIEWS; SACRUM-COCCYX MIN 2 VIEWS 10/16/2024 REASON FOR EXAM: PAIN TECHNIQUE: PELVIS 1 OR 2 VIEWS; SACRUM-COCCYX MIN 2 VIEWS COMPARISON: Radiographs dated 11/15/2022. Abdominal CT 07/22/2024. FINDINGS: No evidence of acute fracture or dislocation. There is likely a chronic fracture deformity of the upper sacrum/S1 segment with cortical step-off at the anterior aspect, unchanged. Mild bilateral hip arthrosis. 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 No aggressive osseous lesion. Qualitative osteopenia. Posterior instrumented fusion of L4-L5 with intact appearing hardware. Partially imaged implanted spinal cord stimulator device. Grossly unremarkable soft tissues. RAD/Sacrum-Coccyx min 2 Views IMPRESSION: No evidence of acute fracture or dislocation. Chronic/degenerative changes as a fany. Reading Location: [id number]
--- NOTE | 2024-10-16 19:47 | RAD_ITS ---
PROCEDURE: PELVIS 1 OR 2 VIEWS; SACRUM-COCCYX MIN 2 VIEWS 10/16/2024 REASON FOR EXAM: PAIN TECHNIQUE: PELVIS 1 OR 2 VIEWS; SACRUM-COCCYX MIN 2 VIEWS COMPARISON: Radiographs dated 11/15/2022. Abdominal CT 07/22/2024. FINDINGS: No evidence of acute fracture or dislocation. There is likely a chronic fracture deformity of the upper sacrum/S1 segment with cortical step-off at the anterior aspect, unchanged. Mild bilateral hip arthrosis. 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 No aggressive osseous lesion. Qualitative osteopenia. Posterior instrumented fusion of L4-L5 with intact appearing hardware. Partially imaged implanted spinal cord stimulator device. Grossly unremarkable soft tissues. RAD/Pelvis 1 or 2 Views IMPRESSION: No evidence of acute fracture or dislocation. Chronic/degenerative changes as a fany. Reading Location: [id number]
[2024-10-16 20:48] LABS: Mucous, Urine 0 SEEN /hpf (<or=2+)
[2024-10-16 20:52] LABS: Color, Urine Yellow (Yellow); Glucose, Dipstick Normal (Normal); Ketone-Dipstick Negative (Negative); Leukocyte Esterase-Dipstick 25 /ul (Negative); Nitrite-Dipstick Negative (Negative); Occult Blood-Urine Negative /ul (Negative); Protein-Dipstick 30 mg/dl (Negative); Specific Gravity, Urine 1.015 (1.002-1.030); Urine Bilirubin Dipstick Negative (Negative)
[2024-10-16 21:12] LABS: Squamous Epithelial Cells - UA 0-5 SEEN /hpf (5-10)
[2024-10-16 21:13] LABS: Red Blood Cells-Urine 0-5 SEEN /hpf (0-5)
[2024-10-16 21:16] LABS: Yeast-Urine RARE /hpf (None Seen)
[2024-10-16 21:22] LABS: Troponin T High Sens 2 HR 7 ng/L (<=14)
[2024-10-16 22:00] VITALS: BP 120/77; PULSE 70; O2SAT 94
[2024-10-16 22:01] VITALS: BP 120/77; PULSE 70; RESP 17; TEMP 36.7; O2SAT 94
--- NOTE | 2024-10-16 22:35 | ED.RN ---
Report called to Anuja
== END 2024-10-16 22:58 | disposition home or self-care (01) ==
PROVIDERS: Physician Assistant; Emergency Provider Surgery; PCP Internal Medicine; Visit Provider Surgery
DX: S09.90XA Unspecified injury of head, initial encounter (principal); I11.0 Hypertensive heart disease with heart failure; I50.9 Heart failure, unspecified; J44.9 Chronic obstructive pulmonary disease, unspecified; E11.40 Type 2 diabetes mellitus with diabetic neuropathy, unspecified; N39.0 Urinary tract infection, site not specified; I25.10 Atherosclerotic heart disease of native coronary artery without angina pectoris; G47.33 Obstructive sleep apnea (adult) (pediatric); Z79.01 Long term (current) use of anticoagulants; Z86.711 Personal history of pulmonary embolism; W05.0XXA Fall from non-moving wheelchair, initial encounter
CPT/HCPCS: 70450; 71045; 72125; 72128; 72170; 72220; 73590; 80053; 81001; 83690; 84484; 85025; 87086; 87088; 93005; 93288; 96374; 96375; 99285; A4216; J2405

== ENCOUNTER 2024-10-22 16:39 | Emergency (ER) | payer MEDICARE, MEDICAID, SELFPAY ==
[2024-10-22 16:43] VITALS: BP 116/94; PULSE 67; RESP 18; TEMP 36.9; O2SAT 96
[2024-10-22 16:46] VITALS: BMI 42.1
--- NOTE | 2024-10-22 18:15 | RAD_ITS ---
PROCEDURE: KNEE 4 OR MORE VIEWS; TIBIA FIBULA 2 VIEWS; HIP, UNI W/ PELVIS 2-3 VIEWS 10/22/2024 REASON FOR EXAM: PAIN TECHNIQUE: KNEE 4 OR MORE VIEWS; TIBIA FIBULA 2 VIEWS; HIP, UNI W/ PELVIS 2-3 VIEWS Laterality: Right FINDINGS: Bones: Mild diffuse osteopenia of visualized bones. No evidence of any acute displaced fracture deformity. Fixation hardware within lower lumbar spine. Pain stimulator overlying right iliac bone with leads extending into lower lumbar spine. Joints: Degenerative changes of right knee joint more prominent along medial compartment. Degenerative changes of bilateral hip joints. Degenerative changes of ankle joint. Effusion: Moderate joint effusion. Soft tissues: Soft tissue swelling overlying knee joint as well as ankle joint.. Other: Moderate stool burden. Calcified phleboliths. RAD/Tibia & Fibula 2 Views IMPRESSION: 1. KNEE JOINT EFFUSION. WITH A HISTORY OF TRAUMA AND NO VISIBLE FRACTURE PERFORMANCE MAKEUP ARTIST AL DERANGEMENT CANNOT BE EXCLUDED. 2. ADVANCED DEGENERATIVE CHANGES OF BILATERAL HIP JOINTS. NO EVIDENCE OF ANY A CUTE FRACTURE DEFORMITY. 3. NO ACUTE DISPLACED FRACTURE DEFORMITY OF VISUALIZED TIBIA AND FIBULA. IF THERE IS PERSISTENT OR WORSENING OF PAIN FURTHER CORRELATION WITH CROSS-SECT IONAL IMAGING CAN BE OBTAINED CLINICALLY INDICATED. Reading Location: [id number]
--- NOTE | 2024-10-22 18:15 | RAD_ITS ---
PROCEDURE: KNEE 4 OR MORE VIEWS; TIBIA FIBULA 2 VIEWS; HIP, UNI W/ PELVIS 2-3 VIEWS 10/22/2024 REASON FOR EXAM: PAIN TECHNIQUE: KNEE 4 OR MORE VIEWS; TIBIA FIBULA 2 VIEWS; HIP, UNI W/ PELVIS 2-3 VIEWS Laterality: Right FINDINGS: Bones: Mild diffuse osteopenia of visualized bones. No evidence of any acute displaced fracture deformity. Fixation hardware within lower lumbar spine. Pain stimulator overlying right iliac bone with leads extending into lower lumbar spine. Joints: Degenerative changes of right knee joint more prominent along medial compartment. Degenerative changes of bilateral hip joints. Degenerative changes of ankle joint. Effusion: Moderate joint effusion. Soft tissues: Soft tissue swelling overlying knee joint as well as ankle joint.. Other: Moderate stool burden. Calcified phleboliths. RAD/HIP, UNI W/ Pelvis 2-3 Views IMPRESSION: 1. KNEE JOINT EFFUSION. WITH A HISTORY OF TRAUMA AND NO VISIBLE FRACTURE WASHER MACHINE AL DERANGEMENT CANNOT BE EXCLUDED. 2. ADVANCED DEGENERATIVE CHANGES OF BILATERAL HIP JOINTS. NO EVIDENCE OF ANY A CUTE FRACTURE DEFORMITY. 3. NO ACUTE DISPLACED FRACTURE DEFORMITY OF VISUALIZED TIBIA AND FIBULA. IF THERE IS PERSISTENT OR WORSENING OF PAIN FURTHER CORRELATION WITH CROSS-SECT IONAL IMAGING CAN BE OBTAINED CLINICALLY INDICATED. Reading Location: [id number]
--- NOTE | 2024-10-22 18:15 | US_ITS ---
PROCEDURE: VENOUS DUPLEX IMAG/LIMITED/UNI 10/22/2024 REASON FOR EXAM: Right hip and leg pain. F 59 y/o TECHNIQUE: VENOUS DUPLEX IMAG/LIMITED/UNI COMPARISON: None FINDINGS: There is no intraluminal echogenicity to suggest the presence of a deep venous thrombosis. Appropriate respiratory variation, augmentation and venous compression is noted. US/Venous Duplex Imag/Limited/Uni IMPRESSION: No deep venous thrombosis identified in right lower extremity. Reading Location: [id number]
--- NOTE | 2024-10-22 18:15 | RAD_ITS ---
PROCEDURE: KNEE 4 OR MORE VIEWS; TIBIA FIBULA 2 VIEWS; HIP, UNI W/ PELVIS 2-3 VIEWS 10/22/2024 REASON FOR EXAM: PAIN TECHNIQUE: KNEE 4 OR MORE VIEWS; TIBIA FIBULA 2 VIEWS; HIP, UNI W/ PELVIS 2-3 VIEWS Laterality: Right FINDINGS: Bones: Mild diffuse osteopenia of visualized bones. No evidence of any acute displaced fracture deformity. Fixation hardware within lower lumbar spine. Pain stimulator overlying right iliac bone with leads extending into lower lumbar spine. Joints: Degenerative changes of right knee joint more prominent along medial compartment. Degenerative changes of bilateral hip joints. Degenerative changes of ankle joint. Effusion: Moderate joint effusion. Soft tissues: Soft tissue swelling overlying knee joint as well as ankle joint.. Other: Moderate stool burden. Calcified phleboliths. RAD/Knee 4 or More Views IMPRESSION: 1. KNEE JOINT EFFUSION. 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 2. ADVANCED DEGENERATIVE CHANGES OF BILATERAL HIP JOINTS. NO EVIDENCE OF ANY A CUTE FRACTURE DEFORMITY. 3. NO ACUTE DISPLACED FRACTURE DEFORMITY OF VISUALIZED TIBIA AND FIBULA. IF THERE IS PERSISTENT OR WORSENING OF PAIN FURTHER CORRELATION WITH CROSS-SECT IONAL IMAGING CAN BE OBTAINED CLINICALLY INDICATED. Reading Location: [id number]
[2024-10-22 18:40] VITALS: BP 111/66; PULSE 60; RESP 18; O2SAT 96
[2024-10-22 20:00] VITALS: BP 105/65; PULSE 60; RESP 18; O2SAT 95
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
[2024-10-22 20:33] VITALS: BP 105/65; PULSE 60; RESP 18; TEMP 37; O2SAT 95
--- NOTE | 2024-10-22 21:01 | ED.RN ---
Pt requesting d/c paperwork, refusing squad, states will get her own ride home.
== END 2024-10-22 21:07 | disposition home or self-care (01) ==
PROVIDERS: Emergency Provider Student in an Organized Health Care Education/Training Program; PCP Internal Medicine; Visit Provider Student in an Organized Health Care Education/Training Program
DX: M25.551 Pain in right hip (principal); I11.0 Hypertensive heart disease with heart failure; I50.9 Heart failure, unspecified; J44.9 Chronic obstructive pulmonary disease, unspecified; I48.91 Unspecified atrial fibrillation; E11.40 Type 2 diabetes mellitus with diabetic neuropathy, unspecified; E78.00 Pure hypercholesterolemia, unspecified; I25.10 Atherosclerotic heart disease of native coronary artery without angina pectoris; Z90.710 Acquired absence of both cervix and uterus; Z95.0 Presence of cardiac pacemaker; G47.33 Obstructive sleep apnea (adult) (pediatric); Z99.89 Dependence on other enabling machines and devices; Z79.891 Long term (current) use of opiate analgesic; Z79.899 Other long term (current) drug therapy; Z79.01 Long term (current) use of anticoagulants; Z79.84 Long term (current) use of oral hypoglycemic drugs; K21.9 Gastro-esophageal reflux disease without esophagitis; F41.9 Anxiety disorder, unspecified; Z90.49 Acquired absence of other specified parts of digestive tract; F17.290 Nicotine dependence, other tobacco product, uncomplicated; M25.461 Effusion, right knee; M25.561 Pain in right knee; M79.661 Pain in right lower leg; W19.XXXA Unspecified fall, initial encounter
CPT/HCPCS: 73502; 73564; 73590; 93971; 99284

== ENCOUNTER 2024-11-15 12:40 | Emergency (ER) | payer MEDICARE, MEDICAID, SELFPAY ==
[2024-11-15 12:41] VITALS: BP 136/87; PULSE 102; RESP 22; TEMP 36.8; O2SAT 95; BMI 43.1
[2024-11-15 12:43] VITALS: BP 136/87; PULSE 60; RESP 22; TEMP 36.8; O2SAT 98
--- OUTSIDE RECORDS SUMMARY | 2024-11-15 13:11 | XMS RPT_ITS | CCD ---
Author Organization [facility] Care Team Providers Care Barrel Lapper Name Role Phone Clarissa Jsoe MD Unavailable Charla Wadsworth Primary Care Provider Provider, External Unavailable [phone] Deepika Lopes Unavailable Unavailable Dev Bridges Unavailable GEE MERCHANT MD Consulting Unavailab NATALY Teague MD Attending Unavailable NATALY VASQUEZ MD Primary Care Unavailable NATALY VASQUEZ MD Admitting Unavailable PROVIDER, UNKNOWN Consulting Unavailable Dr. Chalra Wadsworth Primary Care Provider Dr. Samuel Keys Attending Provider Dr. Samuel Keys Referring Provider Dr. Charla Wadsworth Referring Provider [phone] Dr. Charla Wadsworth Primary Care Provider Dr. Samuel Keys Attending Provider Dr. Charla Wadsworth Primary Care Provider Dr. Virgil Daniels Emergency Provider Dr. Laura Alberto Admit Provider Dr. Laura Alberto Attending Provider Dr. Laura Alberto Other Provider Dr. Alexander Krueger Attending Provider Dr. Alexander Krueger Other Provider Dr. Charla Wadsworth Attending Provider Dr. Charla Wadsworth Referring Provider [phone] hSadi CONVERTER SUPERVISOR, CONVERTER SUPERVISOR-C Candy Attending Provider Shadi CONVERTER SUPERVISOR, CONVERTER SUPERVISOR-C Candy Referring Provider Dr. Raegan Noel Attending [...] GAUTAM, Dr. Herman Attending Provider Dr. Kati Burkett DO Attending Provider Dr. Chaim Maurer DO [...] Care Provider Leeann DU-Kareen Ayala Attending Provider [phone] Leeann DU-CKareen Referring Provider [phone] Ananth GAUTAM, Dr. Dunhma Referring Provider [phone] Ludmila GAUTAM, Dr. Baker Attending Provider [phone] Ananth GAUTAM, Dr. Dunham Primary Care Provider Fuentes MANCINI, Dr. Han Emergency Provider Fuentes MANCINI, Dr. Han Attending Provider Chato GAUTAM, Dr. Colon Emergency Provider Unavailab john Wadsworth MD, Dr. Dunham Primary Care Provider Jeremiah GAUTAM, Dr. Herman Attending Provider Jeremiah GAUTAM, Dr. Herman Emergency Provider Chato GAUTAM, Dr. Colon Attending Provider Unavailab le Oleghe, Efewongbe Primary Care Unavailable Leeann DU, Kareen Referring Unavailable Leeann DU, Kareen Attending Unavailable Tita Winn Admitting Unavailable Autumn Gorman Attending Unavailable Oleghe, Efewongbe Primary Care Unavailable Tita Winn Consulting Unavailable Oleghe, Efewongbe Primary Care Unavailable Panda Rowe Attending Unavailable Oleghe, Efewongbe Primary Care Unavailable aPnda Rowe Attending Unavailable Samuel Keys Attending Unavailable Oleghe, Efewongbe Primary Care Unavailable Oleghe, Efewongbe Primary Care Unavailable Samuel Keys Attending Unavailable Oleghe, Efewongbe Primary Care Unavailable Oleghe, Efewongbe Referring Unavailable Oleghe, Efewongbe Attending Unavailable Oleghe, Efewongbe Primary Care Unavailable Chaim Maurer Attending Unavailable DanielsCalebo Attending Unavailable Oleghe, Efewongbe Primary Care Unavailable Oleghe, Efewongbe Primary Care Unavailable Gigi Barton Attending Unavailable Darlene Reis Attending Unavailable Oleghe, Efewongbe Primary Care Unavailable Guille Dill Attending Unavailabl e Oleghe, Efewongbe Primary Care Unavailable Keon Ramirez Attending Unavailable Oleghe, Efewongbe Primary Care Unavailable Oleghe, Efewongbe Primary Care Unavailable Virgil Daniels Attending Unavailable Oleghe, Efewongbe Primary Care Unavailable Gigi Barton Attending Unavailable Oleghe, Efewongbe Primary Care Unavailable Oleghe, Efewongbe Attending Unavailable Oleghe, Efewongbe Referring Unavailable Oleghe, Efewongbe Primary Care Unavailable Ludmila, Samuel Attending Unavailable Oleghe, Efewongbe Primary Care Unavailable Leeann DU, Kareen Attending Unavailable Kareen Bradshaw NP Referring Unavailable Oleghe, Efewongbe Primary Care Unavailable Crystal Lujan Attending Unavailable Oleghe, Efewongbe Referring Unavailable Janeth Rosado Attending Unavailable Oleghe, Efewongbe Primary Care Unavailable Oleghe, Efewongbe Primary Care Unavailable Gigiur Remus Attending Unavailable Ungur, Remus Referring Unavailable Oleghe, Efewongbe Primary Care Unavailable Ludmila, Samuel Attending Unavailable Oleghe, Efewongbe Primary Care Unavailable Oleghe, Efewongbe Referring Unavailable Leeann DU, Kareen Attending Unavailable Oleghe, Efewongbe Primary Care Unavailable Oleghe, Efewongbe Referring Unavailable Ludmila, [place] Attending Unavailable Oleghe, Efewongbe Referring Unavailable Raegan Noel Attending Unavailable Oleghe, Efewongbe Primary Care Unavailable Oleghe, Efewongbe Primary Care Unavailable Oleghe, Efewongbe Referring Unavailable Kareen Bradshaw NP Attending Unavailable Oleghe, Efewongbe Primary Care Unavailable Imelda Hernandez Attending Unavailable Oleghe, Efewongbe Referring Unavailable Oleghe, Efewongbe Primary Care Unavailable Gautam Laurent NP Attending Unavailable Oleghe, Efewongbe Referring Unavailable Oleghe, Efewongbe Primary Care Unavailable Keon France Attending Unavailable Jcarlos Garcia Referring Unavailable Rosemarie Ritter Attending Unavail able Ludmila, [place] Referring Unavailable Ludmila, Samuel Consulting Unavailable Oleghe, Efewongbe Primary Care Unavailable Oleghe, Efewongbe Primary Care Unavailable Tita Winn Consulting Unavailable Autumn Gorman Attending Unavailable Tita Winn Admitting Unavailable Autumn Gorman Consulting Unavailable Tita Winn Attending Unavailable Ludmila, Samuel Attending Unavailable Ludmila, [place] Consulting Unavailable Oleghe, Efewongbe Primary Care Unavailable Oleghe, Efewongbe Primary Care Unavailable Oleghe, Efewongbe Attending Unavailable Oleghe, Efewongbe Primary Care Unavailable Leeann DU, Kareen Attending Unavailable Oleghe, Efewongbe Primary Care Unavailable Ludmila, [place] Attending Unavailable Ludmila, [place] Referring Unavailable Oleghe, Efewongbe Primary Care Unavailable Keon France Attending Unavailable Leeann DU, Kareen Referring Unavailable Oleghe, Efewongbe Referring Unavailable Oleghe, Efewongbe Attending Unavailable Oleghe, Efewongbe Primary Care Unavailable Oleghe, Efewongbe Primary Care Unavailable Ludmila, Samuel Attending Unavailable Oleghe, Efewongbe Referring Unavailable Oleghe, Efewongbe Primary Care Unavailable Ludmila, [place] Attending Unavailable Oleghe, Efewongbe Primary Care Unavailable Ludmila, [place] Attending Unavailable Oleghe, Efewongbe Primary Care Unavailable Oleghe, Efewongbe Attending Unavailable Oleghe, Efewongbe Referring Unavailable Oleghe, Efewongbe Primary Care Unavailable Oleghe, Efewongbe Attending Unavailable Oleghe, Efewongbe Referring Unavailable Oleghe, Efewongbe Referring Unavailable Ludmila, Samuel Attending Unavailable Oleghe, Efewongbe Primary Care Unavailable Oleghe, Efewongbe Primary Care Unavailable Gregory Xie Attending Unavailable Oleghe, Efewongbe Primary Care Unavailable Leeann DU, Kareen Attending Unavailable Kareen Bradshaw NP Referring Unavailable Oleghe, Efewongbe Primary Care Unavailable Anastasiia CONVERTER SUPERVISOR, Gautam Mena Attending Unavailable Anastasiia CONVERTER SUPERVISOR, Gautam H Referring Unavailable Isckarus, Mansrobert Referring Unavailable Isckarus, Mansour Consulting Unavailable Candy Hsu NP Attending Unavailable Oleghe, Efewongbe Primary Care Unavailable Oleghe, Efewongbe Primary Care Unavailable Oleghe, Efewongbe Referring Unavailable Oleghe, Efewongbe Attending Unavailable Oleghe, Efewongbe Primary Care Unavailable Alan Mack Attending Unavailable Alan Mack Referring Unavailable Allergies Allergy Classification Reported Allergen(s) Allergy Type Date of Onset Reaction(s) Facility Macrolides (antibiotic) (1 source) Erythromycin Drug Allergy [facility] Repository Unclassified (1 source) NSAID Drug allergy (disorder) [facility] Rep[facility] Unclassified (1 source) AUGMENTED BETAMETHASONE DIPROPIONATE Drug allergy (disorder) [facility] Rep[facility] (20 sources) Aspirin Drug Allergy 2 Nausea/Vom/Verónica rrhea [facility] (20 sources) Erythromycin Drug Allergy 5 Vomiting [facility] (20 sources) Latex; Translations: [LATEX] Allergy to substance 1 Other: See Comments [facility] (20 sources) NSAIDS (Non-Steroidal Anti-Inflamma; Translations: [NSAIDS (Non-Steroidal Anti-Inflamma] Propensity to adverse reactions 2 Vomiting,diarr hea [facility] (9 sources) Ibuprofen; Translations: [IBUPROFEN] Drug Allergy 5 GI Upset [facility] (9 sources) NSAIDs; Translations: [NSAIDS (NON-STEROIDAL ANTI-INFLAMMATORY DRUG)] Drug Allergy 4 Diarrhea, Vomiting [facility] (9 sources) Salicylate product; Translations: [SALICYLATES] Drug Allergy 5 GI Upset [facility] (2 sources) Erythromycin; Translations: [ERYTHROMYCIN] Drug Allergy 5 [facility] Other [place] [facility] (1 source) Aspirin Drug Allergy 5 [facility] Repository (1 source) Latex Drug allergy (disorder) 5 [facility] Repository (1 source) erythromycin base Drug allergy (disorder) 5 [facility] Repository Medications Current Medications Medication Drug Class(es) Dates Sig (Normalized) Sig (Original) busPIRone hydrochloride 5 mg oral tablet (20 sources) Start: 04-03-2024 End: 10-29-2024 Start: 04-03-2024 End: 10-29-2024 Start: 09-09-2023 End: 04-03-2024 Start: 05-16-2022 End: [...] 5 MG PO THREE TIMES A DAY February 03, 2019 6:23pm March 01, 2021 12:21pm mood Start: 12-09-2018 End: 12-31-2018 Start: 12-09-2018 End: 12-31-2018 take 5 mg by mouth three times daily Buspirone Discontinued 5 MG PO THREE TIMES A DAY December 09, 2018 12:00am December 31, 2018 [...] foot; for foot includes sole/toes/top of foot fenofibrate 54 mg oral tablet (20 sources) Peroxisome Proliferator Receptor alpha Agonist Start: [...] 12-17-2012 End: 04-02-2013 take 1 capsule by [facility] four times daily gabapentin (NEURONTIN) 300 mg capsule Take 300 mg by mouth four times daily. Active glimepiride 2 mg oral tablet (20 sources) Sulfonylurea Start: 04-20-2024 End: 10-29-2024 guaiFENesin 20 mg/ml oral so lution (20 [...] 5 days. 5 patch 07/05/2024 07/10/2024 Active magnesium oxide 400 mg oral tablet (16 sources) Start: 07-25-2023 meclizine hydrochloride 12.5 mg oral tablet (3 sources) Antiemetic Start: 10-19-2024 pantoprazole 40 mg delayed release oral tablet (20 sources) Proton Pump Inhibitor Start: 09-10-2024 End: 10-21-2024 Start: 04-08-2017 End: 10-08-2018 Start: 04-08-2017 End: 08-22-2017 take 40 mg by mouth once daily Pantoprazole Discontinu ed 40 MG PO DAILY April 08, 2017 1:00am August 22, 2017 4:07pm rosuvastatin calcium 20 mg o ral tablet (20 sources) HMG-CoA Reductase Inhibitor Start: 09-09-2023 Start: 12-18-2019 End: 09-09-2023 SUMAtriptan 50 mg oral tablet (20 sources) Serotonin-1b and Serotonin-1d Receptor Agonist Start: 08-09-2023 Walker (Ultra-Light Rollator) misc (7 sources) Start: 10-17-2022 Walker (Ultra- Light Rollator) misc Active 0 .Route October 16, 2022 11:00pm As directed Start: 10-17-2022 Walker (Ultra- Light Rollator) misc Active 0 .Route October 17, 2022 12:00am As directed (20 sources) Start: 10-29-2024 Start: 10-10-2024 Start: 10-02-2024 End: 10-10-2024 Start: [...] 1 TABLET PO EVERY 4 HOURS NEEDED 10 July 01, 2019 July 03, 2019 12:02am acetaminophen [...] 16, 2012 12:00am December 17, 2012 12:23am [id number] 200 actuat albuterol 0.09 mg/actuat metered dose inhaler (16 sources) beta2-Adrenergic Agonist Start: 04-05-2024 End: 05-12-2024 amLODIPine 5 mg oral tablet (20 sources) Dihydropyridine Calcium Channel Mirna Start: 02-03-2024 End: 10-29-2024 Start: 01-13-2024 End: 02-03-2024 Start: 06-03-2020 End: [...] End: 06-29-2018 take 1 tablet by braden th twice daily amLODIPine (NORVASC) 5 mg tablet Take 5 mg by mouth two times a day. Active amoxicillin 875 mg / clavula eleazar 125 [...] 04-24-2014 cephalexin 500 mg oral capsu le (20 sources) Cephalosporin Antibacterial Start: 10-16-2024 End: 10-29-2024 Start: 01-23-2024 End: 04-03-2024 chlorhexidine gluconate 40 m g/ml medicated liquid soap (20 sources) Start: 11-25-2023 End: 04-03-2024 cholecalciferol 1.25 mg oral capsule (20 sources) Vitamin D Start: 10-08-2017 End: 11-26-2018 Start: 10-08-2017 End: 11-26-2018 Cholecalciferol (Vitamin D3) Discontinued [id number] UNIT PO TH October 08, 2017 12:00am November 26, 2018 2:58pm cholestyramine resin 4000 mg powder for oral suspension (20 sources) Bile Acid Sequestrant Start: 11-10-2019 End: 12-18-2019 ciprofloxacin 3 mg/ml / dexamethasone 1 mg/ml otic suspension (16 sources) Corticosteroid, Quinolone Antimicrobial Start: 08-27-2023 End: 11-14-2023 citalopram 40 mg oral tablet (20 sources) Serotonin Reuptake Inhibitor Start: 04-02-2013 End: 04-03-2013 clindamycin 150 mg oral caps ule (20 sources) Lincosamide Antibacterial Start: 01-13-2020 End: 02-25-2020 diazePAM 5 mg oral tablet (20 sources) Benzodiazepine Start: 12-16-2012 End: 12-17-2012 doxycycline monohydrate 100 mg oral capsule (16 sources) Tetracycline-class Drug Start: 04-05-2024 End: 04-20-2024 DULoxetine 60 mg delayed rel ease oral capsule (20 sources) Serotonin and Norepinephrine Reuptake Inhibitor Start: 05-26-2020 End: 10-21-2024 Start: 05-26-2020 End: 05-16-2022 take 60 mg by mouth twice daily Duloxetine Discontinue d 60 MG PO TWICE A DAY May 26, 2020 12:00am May 16, 2022 9:02am rx by [facility] Start: 03-28-2015 End: 02-25-2020 Start: 12-16-2012 End: 04-02-2013 take 1 capsule by [facility] once daily DULoxetine (CYMBALTA) 60 mg capsule Take 60 mg by mouth once daily. Active esomeprazole 40 mg delayed r elease oral [...] 03-28-2015 End: 07-25-2023 Start: 12-17-2012 End: 04-02-2013 lisinopril 20 mg oral tablet (20 sources) Angiotensin Converting Enzyme Inhibitor Start: 08-28-2022 End: 10-29-2024 Start: 06-01-2022 End: 08-28-2022 take 1 tablet [...] A DAY 180 tablet 3 03/05/2018 Active LORazepam 1 mg oral tablet (20 sources) Benzodiazepine Start: 10-25-2021 End: 07-16-2023 Start: 06-30-2019 End: 03-01-2021 Start: 08-22-2016 End: 11-26-2018 menthol 0.04 mg/mg topical g el (16 sources) Start: 09-09-2023 End: 04-03-2024 methocarbamol 750 [...] 24 hr nicotine 0.292 mg/hr transdermal system (19 sources) Cholinergic Nicotinic Agonist Start: 01-30-2023 End: [...] v potassium 500 m g oral tablet (16 sources) Start: 04-15-2024 End: 05-12-2024 microencapsulated potassium [...] 2013 1:04pm predniSONE 20 mg oral tablet (16 sources) Start: 04-05-2024 End: 04-20-2024 promethazine hydrochloride [...] 04-02-2013 salmon calcitonin 200 unt/actuat nasal spray (14 sources) Calcitonin Start: 06-29-2024 End: 10-10-2024 sucralfate [...] sources) Opioid Agonist Start: 02-25-2020 End: 03-01-2021 traZODone hydrochloride 50 m g oral tablet (20 sources) Serotonin Reuptake Inhibitor Start: 09-09-2023 End: 10-29-2024 Start: 05-16-2022 End: 10-29-2024 Start: 12-17-2012 End: 12-17-2012 Start: 12-17-2012 End: 12-17-2012 take 100 mg by mouth at bedtime Trazodone Discontinued 100 MG PO AT BEDTIME December 17, 2012 12:00am December 17, 2012 11:21am venlafaxine 37.5 mg oral tablet (20 sources) Serotonin and Norepinephrine Reuptake Inhibitor Start: 02-25-2020 End: 03-18-2021 Walker (7 sources) Start: 10-17-2022 End: 10-17-2022 Walker Discontinued 0 .Route 1 October 16, 2022 11:00pm October 17, 2022 3:33pm As directed Start: 10-17-2022 End: 10-17-2022 Walker Discontinued 0 .Route 1 October 17, 2022 [...] pain; Translations: [Right upper quadrant pain] Onset: 10-22-2024 11-02-2018 Episodic Acute and unspecified renal failure (20 sources) [...] Coronary atherosclerosis; Translations: [Atherosclerotic heart disease of 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] Onset: 06-11-2024 [...] Translations: [Hypokalemia] 01-06-2021 Episodic Headache; including migraine (16 sources) Migraine; Translations: [Migraine, unspecified, not intractable, [...] aftercare (20 sources) Polypharmacy ; Translations: [Other joint terminal attack controller (current) drug therapy] 11-03-2021 Episodic Other aftercare (4 sources) Other joint terminal attack controller (current) drug therapy; Translations: [Long-term (current) use of other medications] Episodic Other aftercare (4 sources) Long-term current use of anticoagulant; Translations: [manager terminal (current) use of anticoagulants] 10-16-2024 Episodic Other and unspecified benign neoplasm (1 source) Neuroendocrine tumor; Translations: [Other malignant neuroendocrine tumors] Episodic Other bone disease and musculoskeletal deformities (5 sources) Clavicle pain; Translations: [Other specified disorders of [...] limb] 05-16-2022 Episodic Other connective tissue disease (18 sources) Pain in lower limb; Translations: [Pain in leg, unspecified] 05-21-2024 Episodic Other connective tissue disease (9 sources) Other symptoms and signs involving the musculoskeletal system; Translations: [Other musculoskeletal symptoms referable to limbs] Onset: 07-03-2024 07-03-2024 Episodic Other ear and sense organ disorders (20 sources) Otitis externa; Translations: [Unspecified otitis externa, left ear] 09-05-2023 Chronic Other fractures (14 sources) Closed fracture thoracic vertebra; Translations: [Unspecified [...] injuries and conditions due to external causes (6 sources) Contusion of rib; Translations: [Other specified injuries of thorax, initial encounter] 01-18-2024 Episodic Other injuries and conditions due to external causes (1 source) Unspecified injury of head, initial encounter; Translations: [Unspecified injury of head, initial encounter] Onset: 10-20-2024 Episodic Other injuries and conditions due to external causes (1 source) Encounter for examination and observation following other accident; Translations: [Encounter for examination and observation following other accident] Onset: 10-17-2024 Episodic Other liver diseases (20 sources) Enzyme [...] region] 07-07-2024 Chronic Other nervous system disorders (18 sources) Walking disability; Translations: [Difficulty in walking, [...] hip] 07-18-2020 Episodic Other non-traumatic joint disorders (20 sources) Effusion of right knee joint; Translations: [Effusion, right knee] 11-24-2022 Episodic Other non-traumatic joint disorders (1 source) Pain in right hip; Translations: [Pain in right hip] Onset: 10-28-2024 Episodic Other nutritional; endocrine; and metabolic disorders (7 sources) Severe obesity; Translations: [Class 3 severe obesity in adult] Onset: 07-03-2024 07-03-2024 Chronic Other nutritional; endocrine; and metabolic disorders (8 sources) Body mass index 40+ - severely obese; Translations: [Obesity, Class III, BMI 40-49.9 (morbid obesity)] Onset: 07-03-2024 07-03-2024 Chronic Other screening for suspected conditions (not mental disorders or infectious disease) (20 sources) Patient encounter status; Translations: [Encounter for screening for malignant neoplasm of respiratory organs] Onset: 11-11-2024 Episodic Other skin disorders (16 sources) Mass of shoulder region; Translations: [Localized swelling, mass and lump, unspecified upper limb] 07-16-2023 Episodic Other skin disorders (16 sources) Skin lesion; Translations: [Disorder of the [...] apnea (adult)(pediatric)] 03-26-2023 Chronic Residual codes; unclassified (18 sources) Hypersomnia; Translations: [Hypersomnia, unspecified] 07-22-2024 Chronic Residual codes; unclassified (2 sources) Hypersomnia, unspecified; Translations: [Hypersomnia, unspecified] Onset: 07-22-2024 Chronic Residual codes; unclassified (1 source) Family history of cancer of colon; Translations: [Family history of colon cancer] Episodic Residual codes; unclassified (20 sources) Tobacco user; Translations: [Tobacco use] 12-20-2020 Episodic Residual codes; unclassified (16 sources) Peripheral edema; Translations: [Localized edema] 05-21-2024 Episodic Respiratory failure; insufficiency; arrest (adult) (20 sources) Acute respiratory failure; Translations: [Acute respiratory failure with hypoxia] 12-20-2020 Episodic Screening and history of mental health and substance abuse codes (16 sources) Tobacco use and exposure - finding; Translations: [Personal history of nicotine dependence] 11-13-2023 Episodic Septicemia (except in labor) (20 sources) Sepsis; Translations: [Sepsis, unspecified organism] 12-20-2020 Episodic Spondylosis; intervertebral disc disorders; other back problems (8 sources) Degeneration of lumbosacral intervertebral disc; Translations: [Degeneration of lumbar or lumbosacral intervertebral disc] Onset: 02-18-2014 Chronic Sprains and strains (20 sources) Low back strain; Translations: [Strain of muscle, fascia and tendon of lower back, initial encounter] 12-02-2019 Episodic Substance-related disorders (20 sources) Tobacco dependence, continuous; Translations: [Nicotine dependence, unspecified, with unspecified nicotine-induced disorders] Onset: 07-03-2024 Chronic Substance-related disorders (20 sources) PCP intoxication; Translations: [Hallucinogen use, unspecified with intoxication, unspecified] 12-20-2020 Episodic Superficial injury; contusion (20 sources) Contusion of sacral region; Translations: [Contusion of lower back and pelvis, initial encounter] 12-02-2019 Episodic Thyroid disorders (20 sources) Hypothyroidism; Translations: [Hypothyroidism, unspecified] Onset: 07-03-2024 01-30-2023 Chronic Unclassified (1 source) Weakness of both lower extremities 08-05-2024 Urinary tract infections (20 sources) Urinary tract infectious disease; Translations: [Urinary tract infection, site not specified] 01-27-2024 Episodic Past or Other Problems Problem Classification Problem Date Documented Da te Episodic/Chronic Conditions associated with dizziness or vertigo (20 [...] Episodic Other bone disease and musculoskeletal deformities (18 sources) Osteopenia; Translations: [Other specified disorders of [...] and duodenum] Onset: 05-30-2017 05-30-2017 Episodic Other female genital disorders (1 source) Unspecified condition associated with female genital organs and menstrual cycle; Translations: [Unspecified condition associated with female genital organs and menstrual cycle] Onset: 07-28-2024 Episodic Other injuries and conditions due to external causes (1 source) Unspecified injury of unspecified lower leg, initial encounter; Translations: [Unspecified injury of unspecified lower leg, initial encounter] Onset: 06-01-2024 Episodic Other lower respiratory disease (2 sources) Other forms of dyspnea; Translations: [Other forms of dyspnea] Onset: 06-16-2024 Episodic Phlebitis; thrombophlebitis and thromboembolism (17 sources) Deep venous thrombosis; Translations: [Acute embolism and thrombosis of unspecified deep veins of unspecified lower extremity] Onset: 05-13-2024 05-12-2024 Episodic Skin and subcutaneous tissue infections (7 sources) Carbuncle; Translations: [Furuncle, unspecified] Onset: 10-29-2005 07-07-2024 Episodic Spondylosis; intervertebral disc disorders; other back problems (20 sources) Chronic back pain ; Translations: [Dorsalgia, unspecified] Onset: 02-18-2014 10-30-2021 Episodic Syncope (8 sources) Syncope and collapse; Translations: [Syncope and collapse] Onset: 08-15-2006 Resolved: 12-13-2015 03-30-2013 Episodic Results Test Name Value Interpretation Reference Range Facility Cardiology Visit Reporton Cardiology Visit Report Normal [facility] Emergency Department Summary on 10-22-2024 Emergency Department Summary Normal [facility] HIP, UNI W/ Pelvis 2-3 Views on 10-22-2024 HIP, UNI W/ Pelvis 2-3 Views Normal [facility] Knee 4 or More Viewson 10-22 Knee 4 or More Views Normal [facility] Tibia Fibula 2 Viewson 10-22 Tibia Fibula 2 Views Normal [facility] Venous Duplex Imag/Limited/U nion 10-22-2024 Venous Duplex Imag/Limited/Uni Normal [facility] Internal Medicine Office Vis iton 10-21-2024 Internal Medicine Office Visit Normal [facility] No Panel InformationOrdered By: Charla Wadsworth on 10-21-2024 7.0 % High 4.2-6.3 [facility] Urine Cultureon 10-19-2024 URC Mixed Gram Positive Organisms [place] Count 11,000-25,000 MIXC Mixed contaminants. Submit a new specimen if indicated. Normal [facility] Comment on above: Performed By: #### M 100.2200 ####[facility] [address] [place], [address] Troponin T HS 4 HRon 025 Trop T High Sen Normal <=14 [facility] Comment on above: Result Comment: Canc elled via OM: Order cancelled - Patient discharged Performed By: #### L 499.0043 ####[facility] [address] [place], [address] 12 Lead EKGon 10-16-2024 12 Lead EKG Normal [facility] Absolute lymphocyte countOrd ered By: Shwetha Chun on 10-16-2024 Lymphocytes Auto (Unsp spec) [#/Vol] 4.18 10*3/uL 0.83-4.51 [facility] Anion gap in Serum or Plasma Ordered By: Shwetha Chun on 10-16-2024 Anion gap [Moles/Vol] 13 mmol/L 5-15 [facility] Automated lymphocyte count a s percentage of total leukocytesOrdered By: Shwetha Chun on 10-16-2024 Lymphocytes/100 WBC Auto (Unsp spec) 36.5 % 19-41 [facility] BUN/creatinine ratioOrdered By: Shwetha Chun on 10-16-2024 Urea nitrogen/Creatinine [Mass ratio] 15.4 mg/mg 10-20 [facility] Basophil percentageOrdered B y: Shwetha Chun on 10-16-2024 Basophils/100 WBC (Bld) 0.4 % 0-1 [facility] Bilirubin Test strip Ql (U)O rdered By: Shwetha Chun on 10-16-2024 Bilirubin Ql (U) Negative Negative [facility] Bilirubin, totalOrdered By: Shwetha Chun on 10-16-2024 Bilirubin [Mass/Vol] 0.19 mg/dL 0.00-1.30 [facility] Brain/Head without Contrasto n 10-16-2024 Brain/Head without Contrast Normal [facility] CBC W/Diff, Automatedon 08-0 -2024 Absolute Lymph 4.18 X10 3/uL Normal 0.83-4.51 [facility] Comment on above: Performed By: #### L 500.4050, L100.0100 ####[facility] [address] [place], [address] Absolute Neut 6.2 X10 3/uL Normal 2.0-7.7 [facility] Comment on above: Performed By: #### L 500.4050, L100.0100 ####[facility] [address] [place], [address] Basophils/100 WBC (Bld) 0.4 % Normal 0-1 [facility] Comment on above: Performed By: #### L 500.4050, L100.0100 ####[facility] [address] [place], [address] Eosinophils/100 WBC (Bld) 2.4 % Normal 0-5 [facility] Comment on above: Performed By: #### L 500.4050, L100.0100 ####[facility] [address] [place], [address] Erythrocyte distribution width (RBC) [Ratio] 14.5 % Normal 11.6-14.6 [facility] Comment on above: Performed By: #### L 500.4050, L100.0100 ####[facility] [address] [place], [address] Hematocrit (Bld) [Volume fraction] 42.8 % Normal 37-47 [facility] Comment on above: Performed By: #### L 500.4050, L100.0100 ####[facility] [address] [place], [address] Hemoglobin (Bld) [Mass/Vol] 13.8 g/dL Normal 12.0-15.0 [facility] Comment on above: Performed By: #### L 500.4050, L100.0100 ####[facility] [address] [place], [address] IG% 0.700 Normal 0.0-0.9 [facility] Comment on above: Result Comment: IG% - Immature Granulocytes (promyelocytes, myelocytes andmetamyelocytes) > 1% indicates that a LEFT SHIFT is Present. Performed By: #### L 500.4050, L100.0100 ####[facility] [address] [place], [address] Lymphocytes/100 WBC (Bld) 36.5 % Normal 19-41 [facility] Comment on above: Performed By: #### L 500.4050, L100.0100 ####[facility] [address] [place], [address] MCH (RBC) [Entitic mass] 29.4 pg Normal 27.0-32.0 [facility] Comment on above: Performed By: #### L 500.4050, L100.0100 ####[facility] [address] [place], [address] MCHC (RBC) [Mass/Vol] 32.2 g/dL Normal 32-36 [facility] Comment on above: Performed By: #### L 500.4050, L100.0100 ####[facility] [address] [place], [address] MCV (RBC) [Entitic vol] 91.1 fL Normal 81-99 [facility] Comment on above: Performed By: #### L 500.4050, L100.0100 ####[facility] [address] [place], [address] Monocytes/100 WBC (Bld) 5.5 % Normal 0-10 [facility] Comment on above: Performed By: #### L 500.4050, L100.0100 ####[facility] [address] [place], [address] Neutrophils/100 WBC (Bld) 54.5 % Normal 47-70 [facility] Comment on above: Performed By: #### L 500.4050, L100.0100 ####[facility] [address] [place], [address] Nucleated RBC (Bld) [#/Vol] 0 10*3/uL Normal 0-5 [facility] Comment on above: Performed By: #### L 500.4050, L100.0100 ####[facility] [address] [place], [address] Platelet mean volume (Bld) [Entitic vol] 10.2 fL Normal 6.2-12.0 [facility] Comment on above: Performed By: #### L 500.4050, L100.0100 ####[facility] [address] [place], [address] Platelets (Bld) [#/Vol] 262 10*3/uL Normal 150-450 [facility] Comment on above: Performed By: #### L 500.4050, L100.0100 ####[facility] [address] [place], [address] RBC (Bld) [#/Vol] 4.70 10*6/uL Normal 4.2-5.4 [facility] Comment on above: Performed By: #### L 500.4050, L100.0100 ####[facility] [address] [place], [address] RDW SD 48.4 fl High 35.1-43.9 [facility] Comment on above: Performed By: #### L 500.4050, L100.0100 ####[facility] [address] [place], [address] WBC (Bld) [#/Vol] 11.5 10*3/uL High 4.4-11.0 [facility] Comment on above: Performed By: #### L 500.4050, L100.0100 ####[facility] [address] [place], [address] Carbon dioxide, total [Moles /volume] in Central venous bloodOrdered By: Shwetha Chun on 10-16-2024 CO2 [Moles/Vol] 22.9 mmol/L 21.0-32.0 [facility] Chest 1 View (Portable)on Chest 1 View (Portable) Normal [facility] Chloride assayOrdered By: Mini Chun on 10-16-2024 Chloride [Moles/Vol] 103 mmol/L 98-108 [facility] Comprehensive Metabolic Prof ilon 10-16-2024 Albumin [Mass/Vol] 4.3 g/dL Normal 3.5-5.0 [facility] Comment on above: Performed By: #### L 500.4050, L100.0100 ####[facility] [address] [place], [address] Albumin/Globulin [Mass ratio] 1.3 {ratio} Normal 0.9-2.4 [facility] Comment on above: Performed By: #### L 500.4050, L100.0100 ####[facility] [address] [place], [address] ALK PHOS 85 U/L Normal 35-104 [facility] Comment on above: Performed By: #### L 500.4050, L100.0100 ####[facility] [address] [place], [address] ALT [Catalytic activity/Vol] 26 U/L Normal <=34 [facility] Comment on above: Performed By: #### L 500.4050, L100.0100 ####[facility] [address] [place], [address] AST [Catalytic activity/Vol] 26 U/L Normal <=31 [facility] Comment on above: Performed By: #### L 500.4050, L100.0100 ####[facility] [address] [place], [address] Bilirubin [Mass/Vol] 0.19 mg/dL Normal 0.00-1.30 [facility] Comment on above: Performed By: #### L 500.4050, L100.0100 ####[facility] [address] [place], [address] BUN/CRE 15.4 RATIO Normal 10-20 [facility] Comment on above: Performed By: #### L 500.4050, L100.0100 ####[facility] [address] [place], [address] Calcium [Mass/Vol] 9.7 mg/dL Normal 7.6-11.0 [facility] Comment on above: Performed By: #### L 500.4050, L100.0100 ####[facility] [address] [place], [address] Chloride [Moles/Vol] 103 mmol/L Normal 98-108 [facility] Comment on above: Performed By: #### L 500.4050, L100.0100 ####[facility] [address] [place], [address] CO2 [Moles/Vol] 22.9 mmol/L Normal 21.0-32.0 [facility] Comment on above: Performed By: #### L 500.4050, L100.0100 ####[facility] [address] [place], [address] Creatinine [Mass/Vol] 1.62 mg/dL High 0.70-1.20 [facility] Comment on above: Performed By: #### L 500.4050, L100.0100 ####[facility] [address] [place], [address] ECRCL 41.53 ml/min Low 50-250 [facility] Comment on above: Performed By: #### L 500.4050, L100.0100 ####[facility] [address] [place], [address] GAP 13 Normal 5-15 [facility] Comment on above: Performed By: #### L 500.4050, L100.0100 ####[facility] [address] [place], [address] GFR/1.73 sq M.predicted among non-blacks MDRD (S/P/Bld) [Vol rate/Area] 36 mL/min/{1.73_m2} Low >60 [facility] Comment on above: Result Comment: mL/m in/1.73m2 CKD-EPI Creatinine Equation (2020) Performed By: #### L 500.4050, L100.0100 ####[facility] [address] [place], [address] Globulin (S) [Mass/Vol] 3.4 g/dL Normal 2.2-4.2 [facility] Comment on above: Performed By: #### L 500.4050, L100.0100 ####[facility] [address] [place], [address] Glucose [Mass/Vol] 152 mg/dL High 70-99 [facility] Comment on above: Performed By: #### L 500.4050, L100.0100 ####[facility] [address] [place], [address] Potassium [Moles/Vol] 4.3 mmol/L Normal 3.3-5.1 [facility] Comment on above: Performed By: #### L 500.4050, L100.0100 ####[facility] [address] [place], [address] Sodium [Moles/Vol] 139 mmol/L Normal 133-145 [facility] Comment on above: Performed By: #### L 500.4050, L100.0100 ####[facility] [address] [place], [address] T PROT 7.7 g/dL Normal 5.9-8.4 [facility] Comment on above: Performed By: #### L 500.4050, L100.0100 ####[facility] [address] [place], [address] Urea nitrogen [Mass/Vol] 25 mg/dL High 4-19 [facility] Comment on above: Performed By: #### L 500.4050, L100.0100 ####[facility] [address] [place], [address] Emergency Department Summary on 10-16-2024 Emergency Department Summary Normal [facility] Eosinophil percentageOrdered By: Shwetha Chun on 10-16-2024 Eosinophils/100 WBC (Bld) 2.4 % 0-5 [facility] Erythrocyte distribution wid th ratioOrdered By: Shwetha Chun on 10-16-2024 Erythrocyte distribution width (RBC) [Ratio] 14.5 % 11.6-14.6 [facility] Erythrocyte distribution wid th standard deviationOrdered By: Shwetha Chun on 10-16-2024 Erythrocyte distribution width (RBC) [Ratio] 48.4 fl High 35.1-43.9 [facility] Glomerular filtration rate ( GFR) estimation/1.73 sq m using serum, plasma, or whole bOrdered By: Shwetha Chun on 10-16-2024 GFR/1.73 sq M.predicted among non-blacks MDRD (S/P/Bld) [Vol rate/Area] 36 mL/min/{1.73_m2} Low >60 [facility] Hematocrit Auto (Bld) [Volum e fraction]Ordered By: Shwetha Chun on 10-16-2024 Hematocrit (Bld) [Volume fraction] 42.8 % 37-47 [facility] Hemoglobin measurementOrdere d By: Shwetha Chun on 10-16-2024 Hemoglobin (Bld) [Mass/Vol] 13.8 g/dL 12.0-15.0 [facility] Immature granulocytes/100 WB C Auto (Bld)Ordered By: Shwetha Chun on 10-16-2024 Immature granulocytes/100 WBC (Bld) 0.700 % 0.0-0.9 [facility] Ketones Test strip Ql (U)Ord ered By: Shwetha Chun on 10-16-2024 Ketones Ql (U) Negative Negative [facility] L501.4021on 10-16-2024 Trop T High Sen 7 ng/L Normal <=14 [facility] Comment on above: Performed By: #### L 501.4021, L501.2450 ####[facility] [address] [place], [place], [address] Lipaseon 10-16-2024 Lipase [Catalytic activity/Vol] 30 U/L Normal 13-75 [facility] Comment on above: Result Comment: Nelia valenzuela note:LIPASE revised reference range effective 22.New Lipase methodology. Expected to produce lower valuesthan the previous assay method.NEW Reference Range: 13 - 75 U/L Performed By: #### L 501.4021, L501.2450 ####[facility] [address] [place], [address] MCV (mean corpuscular volume ) determinationOrdered By: Shwetha Chun on 10-16-2024 MCV (RBC) [Entitic vol] 91.1 fL 81-99 [facility] Mean corpuscular hemoglobin (MCH) determinationOrdered By: Shwetha Chun on 10-16-2024 MCH (RBC) [Entitic mass] 29.4 pg 27.0-32.0 [facility] Monocyte percentageOrdered B y: Shwetha Chun on 10-16-2024 Monocytes/100 WBC (Bld) 5.5 % 0-10 [facility] Mucus LM Ql (Urine sed)Order ed By: Shwetha Chun on 10-16-2024 Mucus Ql (Urine sed) 0 SEEN /hpf [facility] Neutrophil percentageOrdered By: Shwetha Chun on 10-16-2024 Neutrophils/100 WBC (Bld) 54.5 % 47-70 [facility] Nitrite Test strip Ql (U)Ord ered By: Shwetha Chun on 10-16-2024 Nitrite Ql (U) Negative Negative [facility] No Panel InformationOrdered By: Shwetha Chun on 10-16-2024 26 U/L <32 [facility] Pelvis 1 or 2 Viewson 2024 Pelvis 1 or 2 Views Normal [facility] Platelet countOrdered By: Mini Chun on 10-16-2024 Platelets (Bld) [#/Vol] 262 10*3/uL 150-450 [facility] Potassium measurement (mass/ volume)Ordered By: Shwetha Chun on 10-16-2024 Potassium (Unsp spec) [Mass/Vol] 4.3 mmol/L 3.3-5.1 [facility] Protein Test strip Ql (U)Ord ered By: Shwetha Chun on 10-16-2024 Protein Ql (U) 30 mg/dl High Negative [facility] RBC Auto (Bld) [#/Vol]Ordere d By: Shwetha Chun on 10-16-2024 RBC (Bld) [#/Vol] 4.70 10*6/uL 4.2-5.4 [facility] Sacrum-Coccyx min 2 Viewson 10-16-2024 Sacrum-Coccyx min 2 Views Normal [facility] Serum creatinine measurement (mass/volume)Ordered By: Shwetha Chun on 10-16-2024 Creatinine [Mass/Vol] 1.62 mg/dL High 0.70-1.20 [facility] Serum globulin measurementOr dered By: Shwetha Chun on 10-16-2024 Globulin (S) [Mass/Vol] 3.4 g/dL 2.2-4.2 [facility] Serum glucose measurement (m ass/volume)Ordered By: Shwetha Chun on 10-16-2024 Glucose [Mass/Vol] 152 mg/dL High 70-99 [facility] Serum or plasma alanine cortes otransferase (ALT) measurementOrdered By: Shwetha Chun on 10-16-2024 ALT [Catalytic activity/Vol] 26 U/L <35 [facility] Serum or plasma albumin heather urement (mass/volume)Ordered By: Shwetha Chun on 10-16-2024 Albumin [Mass/Vol] 4.3 g/dL 3.5-5.0 [facility] Serum or plasma albumin/glob ulin mass ratioOrdered By: Shwetha Chun on 10-16-2024 Albumin/Globulin [Mass ratio] 1.3 {ratio} 0.9-2.4 [facility] Serum or plasma alkaline osorio sphatase measurementOrdered By: Shwetha Chun on 10-16-2024 ALP [Catalytic activity/Vol] 85 U/L 35-104 [facility] Serum or plasma calcium heather urement (mass/volume)Ordered By: Shwetha Chun on 10-16-2024 Calcium [Mass/Vol] 9.7 mg/dL 7.6-11.0 [facility] Serum or plasma urea nitroge n measurement (mass/volume)Ordered By: Shwetha Chun on 10-16-2024 Urea nitrogen [Mass/Vol] 25 mg/dL High 4-19 [facility] Sodium levelOrdered By: Shwetha Chun on 10-16-2024 Sodium [Moles/Vol] 139 mmol/L 133-145 [facility] Spine Cervical without Contr ason 10-16-2024 Spine Cervical without Contras Normal [facility] Spine Thoracic without Contr ason 10-16-2024 Spine Thoracic without Contras Normal [facility] Squamous epithelial cells de tection in urine sediment by light microscopyOrdered By: Shwetha Chun on 10-16-2024 Epithelial cells.squamous LM Ql (Urine sed) 0-5 SEEN /hpf 5-10 [facility] Tibia Fibula 2 Viewson 10-16 Tibia Fibula 2 Views Normal [facility] Total proteinOrdered By: Milagro Chun on 10-16-2024 Protein [Mass/Vol] 7.7 g/dL 5.9-8.4 [facility] Troponin T HS 2 HRon 08-08-2 025 Trop T High Sen 7 ng/L Normal <=14 [facility] Comment on above: Performed By: #### L 499.0042 ####[facility] [address] [place], [address] Troponin T.cardiac [Mass/vol ume] in Serum or Plasma by High sensitivity methodOrdered By: Shwetha Chun on 10-16-2024 Troponin T.cardiac High sensitivity method [Mass/Vol] 7 ng/L <14 [facility] Troponin T.cardiac High sensitivity method [Mass/Vol] 7 ng/L <14 [facility] Urinalysis, Completeon 10-16 YEAST RARE Normal None Seen [facility] Comment on above: Order Comment: ADOLPH CTOR TO SPECIFY Performed By: #### L 400.0001 ####[facility] [address] [place], [address] BACTERIA 1+ /hpf Normal None Seen [facility] Comment on above: Order Comment: ADOLPH CTOR TO SPECIFY Performed By: #### L 400.0001 ####[facility] [address] [place], [address] RBC 0-5 SEEN Normal 0-5 [facility] Comment on above: Order Comment: ADOLPH CTOR TO SPECIFY Performed By: #### L 400.0001 ####[facility] [address] [place], [address] WBC 5-10 SEEN Normal 0-5 [facility] Comment on above: Order Comment: ADOLPH CTOR TO SPECIFY Performed By: #### L 400.0001 ####[facility] [address] [place], [address] EPI,SQUAMOUS 0-5 SEEN Normal 5-10 [facility] Comment on above: Order Comment: ADOLPH CTOR TO SPECIFY Performed By: #### L 400.0001 ####[facility] [address] [place], [address] Mucus Ql (Urine sed) 0 SEEN Normal [facility] Comment on above: Order Comment: COLLE CTOR TO SPECIFY Performed By: #### L 400.0001 ####[facility] [address] [place], [address] Urine clarityOrdered By: Milagro Chun on 10-16-2024 Clarity (U) Sl. Cloudy Clear [facility] Urine color determinationOrd ered By: Shwetha Chun on 10-16-2024 Color (U) Yellow Yellow [facility] Urine cultureOrdered By: Milagro Chun on 10-16-2024 Bacteria identified Cx Nom (U) Positive Abnormal [facility] Urine glucose detectionOrder ed By: Shwetha Chun on 10-16-2024 Glucose Ql (U) Normal mg/dl Normal [facility] Urine leukocyte esterase det ection by dipstickOrdered By: Shwetha Chun on 10-16-2024 Leukocyte esterase Test strip Ql (U) 25 /ul High Negative [facility] Urine pHOrdered By: Shwetha ambrosio on 10-16-2024 pH (U) 5.0 [pH] 5.0 - 8.0 [facility] Urine sediment bacteria coun t by microscopy (number/high power field)Ordered By: Shwetha Chun on 10-16-2024 Bacteria LM.HPF (Urine sed) [#/Area] 1 /[HPF] None Seen [facility] Urine sediment yeast count b y microscopy (number/high powered field)Ordered By: Shwetha Chun on 10-16-2024 Yeast LM.HPF (Urine sed) [#/Area] RARE /hpf None Seen [facility] Urine specific gravity measu rementOrdered By: Shwetha Chun on 10-16-2024 Specific gravity (U) [Rel density] 1.015 1.002-1.030 [facility] Urine urobilinogen measureme ntOrdered By: Shwetha Chun on 10-16-2024 Urobilinogen Ql (U) Normal mg/dl Normal [facility] White blood cell (WBC) count Ordered By: Shwetha Chun on 10-16-2024 WBC (Bld) [#/Vol] 11.5 10*3/uL High 4.4-11.0 [facility] White blood cell countOrdere d By: Shwethapamela Chun on 10-16-2024 White blood cell count 5-10 SEEN /hpf 0-5 [facility] Clavicleon 10-10-2024 Clavicle Normal [facility] Emergency Department Summary on 10-10-2024 Emergency Department Summary Normal [facility] HIP, UNI W/ Pelvis 2-3 Views on 10-10-2024 HIP, UNI W/ Pelvis 2-3 Views Normal [facility] Knee 4 or More Viewson 10-10 Knee 4 or More Views Normal [facility] Shoulder min 2 Viewson 10-10 Shoulder min 2 Views Normal [facility] Internal Medicine Office Vis iton 10-02-2024 Internal Medicine Office Visit Normal [facility]) RAMSES BRADSHAW ([id number]) 1965 F Date Time Provider Department 08/10/24 [facility] During your visit today, we recorded the following information about you: Katrin Peng 08/10/2024 8:01 AM Signed I faxed order to [facility], however patient was released from them in [...] Encounter Status:Closed by KATRIN PENG on 08/12/24 [facility] CNOVon 08-05-2024 CN Office Visit (ORMMMB ) RAMSES BRADSHAW ([id number]) 1965 F Date Time Provider Department 08/05/24 10:00 AM [facility] During your visit today, we recorded the following information about you: Weight Height 101.6 kg 1.575 m Vania Ladd MA 08/05/2024 11:04 PM Signed 58 y/o female presents to office to discuss MRI results of the cervical and thoracic spine. Butch Mays MD 08/05/2024 11:04 PM Signed Butch Mays MD Orthopaedic Spine Surgery [address] [place] [address], [address], [place] [address] FAX: [phone] Spine Surgery Outpatient Note Service Date: 08/05/2024 [...] Essential Hypertension Copd (Chronic Obstructive Pulmonary Disease) ([facility]) Controlled Type 2 Diabetes Mellitus Without Complication, Without Long-Term Current Use of Insulin ([facility]) History of Pulmonary Embolus ([place]) Atrial Fibrillation ([facility]) Hyperlipidemia Tobacco Use Disorder Eloy (Obstructive Sleep Apnea) Heart Failure With Preserved Ejection Fraction ([facility]) Armani (Acute Kidney Injury) Obesity, Class III, BMI >= 40 PAST MEDICAL HISTORY Diagnosis Date Anxiety Atrial fibrillation ([facility]) 07/03/2024 CAD (coronary artery disease) 07/03/2024 Congestive heart failure ([facility]) 07/03/2024 Controlled type 2 diabetes mellitus without complication, without long-term current use of insulin ([facility]) 07/03/2024 COPD (chronic obstructive pulmonary disease) ([facility]) 07/03/2024 Depression Gastric mass Hypertension Hypothyroid ELOY (obstructive sleep apnea) 07/03/[address] bangura . pacemaker checked at [facility] Sick sinus syndrome ([facility]) Sleep apnea uses cpap at night PAST SURGICAL HISTORY Procedure Laterality Date ANESTHESIA LUMBAR REGION NOS 02/07/2016 L4-L5 fusion; [facility] APPENDECTOMY CARPAL TUNNEL left HYSTERECTOMY HX LAPAROSCOPY [...] bedtime. traZO (more content not included)... Normal [facility] MR Cervical spine WO larry hebert 08-04-2024 * * *Final Report* * * DATE OF EXAM: Aug 04 2024 4:14PM [place] 0297 - MRI CERVICAL SPINE WO IVCON [...] No canal stenosis or neural foraminal stenosis. [facility] Provider, [facility] - 08/04/2024 * * *Final Report* * * DATE OF EXAM: Aug 04 2024 4:14PM [facility] 0297 - MRI CERVICAL SPINE WO IVCON [...] vertebrae with counting from the craniocervical junction. Ditch Worker: CHERIE Transcribe Date/Time: Aug 04 2024 4:34P Dictated by : JUSTIN MOSHER MD This examination was interpreted and the report reviewed and electronically signed by: JUSTIN MOSHER MD on Aug 04 2024 4:39PM EST [facility] MR Cervical spine WO contras tOrdered By: Ccf Provider on 08-04-2024 [facility] MR Thoracic spine WO contras ton 08-04-2024 * * *Final Report* * * DATE OF EXAM: Aug 04 2024 4:14PM [facility] 0325 - MRI THORACIC SPINE WO [...] The thoracic canal and foramina are patent. [facility] Provider, [facility] - 08/04/2024 * * *Final Report* * * DATE OF EXAM: Aug 04 2024 4:14PM [facility] 0325 - MRI THORACIC SPINE WO [...] and assume there are 5 lumbar-type vertebrae. Ditch Worker: CHERIE Transcribe Date/Time: Aug 04 2024 4:51P Dictated by : JUSTIN MOSHER MD This examination was interpreted and the report reviewed and electronically signed by: JUSTIN MOSHER MD on Aug 04 2024 4:56PM [facility] MRI CERVICAL SPINE WO IVCONo n 08-04-2024 MRI CERVICAL SPINE WO IVCON * * *Final Report* * * DATE OF EXAM: Aug 04 2024 4:14PM [facility] 0297 - MRI CERVICAL SPINE WO [...] vertebrae with counting from the craniocervical junction. Ditch Worker: PSCB Transcribe Date/Time: Aug 04 2024 4:34P Dictated by : JUSTIN MOSHER MD This examination was interpreted and the report reviewed and electronically signed by: JUSTIN MOSHER MD on Aug 04 2024 4:39PM EST [id number] Normal [facility] MRI THORACIC SPINE WO IVCONo n 08-04-2024 MRI THORACIC SPINE WO IVCON * * *Final Report* * * DATE OF EXAM: Aug 04 2024 4:14PM [facility] 0325 - MRI THORACIC SPINE WO [...] and assume there are 5 lumbar-type vertebrae. Ditch Worker: [facility] Transcribe Date/Time: Aug 04 2024 4:51P Dictated by : JUSTIN MOSHER MD This examination was interpreted and the report reviewed and electronically signed by: JUSTIN MOSHER MD on Aug 04 2024 4:56PM EST [id number] Normal [facility] No Panel Informationon 08-04 Radiology Study observation (narrative) [facility] Abdomen/Pelvis W IV Cont ONL Yon 07-22-2024 Abdomen/Pelvis W IV Cont ONLY Normal [facility] Absolute lymphocyte countOrd ered By: Chaim Maurer on 07-22-2024 Lymphocytes Auto (Unsp spec) [#/Vol] 4.02 10*3/uL 0.83-4.51 [facility] Anion gap in Serum or Plasma Ordered By: Chaim Maurer on 07-22-2024 Anion gap [Moles/Vol] 13 mmol/L - [facility] Automated lymphocyte count a s percentage of total leukocytesOrdered By: Chaim Maurer on 07-22-2024 Lymphocytes/100 WBC Auto (Unsp spec) 37.0 % - [facility] BUN/creatinine ratioOrdered By: Chaim Maurer on 07-22-2024 Urea nitrogen/Creatinine [Mass ratio] 18.0 mg/mg 10- [facility] Basophil percentageOrdered B y: Chaim Maurer on 07-22-2024 Basophils/100 WBC (Bld) 0.4 % 0-1 [facility] Bilirubin, totalOrdered By: Chaim Maurer on 07-22-2024 Bilirubin [Mass/Vol] 0.17 mg/dL 0.00-1.30 [facility] CBC W/Diff, Automatedon 07-09 Absolute Lymph 4.02 X10 3/uL Normal 0.83-4.51 [facility] Comment on above: Performed By: #### L [id number], L100.0100 ####[facility] [address] [place], [address] Absolute Neut 5.7 X10 3/uL Normal 2.0-7.7 [facility] Comment on above: Performed By: #### L [id number], L100.0100 ####[facility] [address] [place], [address] Basophils/100 WBC (Bld) 0.4 % Normal 0-1 [facility] Comment on above: Performed By: #### L [id number], L100.0100 ####[facility] [address] [place], [address] Eosinophils/100 WBC (Bld) 1.9 % Normal 0-5 [facility] Comment on above: Performed By: #### L [id number], L100.0100 ####[facility] [address] [place], [address] Erythrocyte distribution width (RBC) [Ratio] 13.9 % Normal 11.6-14.6 [facility] Comment on above: Performed By: #### L [id number], L100.0100 ####[facility] [address] [place], [address] Hematocrit (Bld) [Volume fraction] 40.8 % Normal 37-47 [facility] Comment on above: Performed By: #### L [id number], L100.0100 ####[facility] [address] [place], [address] Hemoglobin (Bld) [Mass/Vol] 13.0 g/dL Normal 12.0-15.0 [facility] Comment on above: Performed By: #### L [id number], L100.0100 ####[facility] [address] [place], [address] IG% 0.600 Normal 0.0-0.9 [facility] Comment on above: Result Comment: IG% - Immature Granulocytes (promyelocytes, myelocytes andmetamyelocytes) > 1% indicates that a LEFT SHIFT is Present. Performed By: #### L [id number], L100.0100 ####[facility] [address] [place], [address] Lymphocytes/100 WBC (Bld) 37.0 % Normal 19-41 [facility] Comment on above: Performed By: #### L [id number], L100.0100 ####[facility] [address] [place], [address] MCH (RBC) [Entitic mass] 28.4 pg Normal 27.0-32.0 [facility] Comment on above: Performed By: #### L [id number], L100.0100 ####[facility] [address] [place], [address] MCHC (RBC) [Mass/Vol] 31.9 g/dL Low 32-36 [facility] Comment on above: Performed By: #### L [id number], L100.0100 ####[facility] [address] [place], [address] MCV (RBC) [Entitic vol] 89.1 fL Normal 81-99 [facility] Comment on above: Performed By: #### L [id number], L100.0100 ####[facility] [address] [place], [address] Monocytes/100 WBC (Bld) 7.3 % Normal 0-10 [facility] Comment on above: Performed By: #### L [id number], L100.0100 ####[facility] [address] [place], [address] Neutrophils/100 WBC (Bld) 52.8 % Normal 47-70 [facility] Comment on above: Performed By: #### L [id number], L100.0100 ####[facility] [address] [place], [address] Nucleated RBC (Bld) [#/Vol] 0 10*3/uL Normal 0-5 [facility] Comment on above: Performed By: #### L [id number], L100.0100 ####[facility] [address] [place], [address] Platelet mean volume (Bld) [Entitic vol] 10.1 fL Normal 6.2-12.0 [facility] Comment on above: Performed By: #### L [id number], L100.0100 ####[facility] [address] [place], [address] Platelets (Bld) [#/Vol] 269 10*3/uL Normal 150-450 [facility] Comment on above: Performed By: #### L [id number], L100.0100 ####[facility] [address] [place], [address] RBC (Bld) [#/Vol] 4.58 10*6/uL Normal 4.2-5.4 [facility] Comment on above: Performed By: #### L [id number], L100.0100 ####[facility] [address] [place], [address] RDW SD 44.9 fl High 35.1-43.9 [facility] Comment on above: Performed By: #### L [id number], L100.0100 ####[facility] [address] [place], [address] WBC (Bld) [#/Vol] 10.9 10*3/uL Normal 4.4-11.0 [facility] Comment on above: Performed By: #### L 500.4050, L100.0100 ####[facility] [address] [place], [address] Carbon dioxide, total [Moles /volume] in Central venous bloodOrdered By: Chaim Maurer on 07-22-2024 CO2 [Moles/Vol] 21.6 mmol/L 21.0-32.0 [facility] Chloride assayOrdered By: Kaity Maurer on 07-22-2024 Chloride [Moles/Vol] 107 mmol/L 98-108 [facility] Comprehensive Metabolic Prof ilon 07-22-2024 Albumin [Mass/Vol] 4.2 g/dL Normal 3.5-5.0 [facility] Comment on above: Performed By: #### L 500.4050, L100.0100 ####[facility] [address] [place], [address] Albumin/Globulin [Mass ratio] 1.3 {ratio} Normal 0.9-2.4 [facility] Comment on above: Performed By: #### L [id number], L100.0100 ####[facility] [address] [place], [address] ALK PHOS 76 U/L Normal 35-104 [facility] Comment on above: Performed By: #### L [id number], L100.0100 ####[facility] [address] [place], [address] ALT [Catalytic activity/Vol] 18 U/L Normal <=34 [facility] Comment on above: Performed By: #### L 500.4050, L100.0100 ####[facility] [address] [place], [address] AST [Catalytic activity/Vol] 20 U/L Normal <=31 [facility] Comment on above: Performed By: #### L [id number], L100.0100 ####[facility] [address] [place], [address] Bilirubin [Mass/Vol] 0.17 mg/dL Normal 0.00-1.30 [facility] Comment on above: Performed By: #### L [id number], L100.0100 ####[facility] [address] [place], [address] BUN/CRE 18.0 RATIO Normal 10-20 [facility] Comment on above: Performed By: #### L [id number], L100.0100 ####[facility] [address] [place], [address] Calcium [Mass/Vol] 9.5 mg/dL Normal 7.6-11.0 [facility] Comment on above: Performed By: #### L [id number], L100.0100 ####[facility] [address] [place], [address] Chloride [Moles/Vol] 107 mmol/L Normal 98-108 [facility] Comment on above: Performed By: #### L [id number], L100.0100 ####[facility] [address] [place], [address] CO2 [Moles/Vol] 21.6 mmol/L Normal 21.0-32.0 [facility] Comment on above: Performed By: #### L [id number], L100.0100 ####[facility] [address] [place], [address] Creatinine [Mass/Vol] 1.42 mg/dL High 0.70-1.20 [facility] Comment on above: Performed By: #### L [id number], L100.0100 ####[facility] [address] [place], [address] ECRCL 33.40 ml/min Low 50-250 [facility] Comment on above: Performed By: #### L [id number], L100.0100 ####[facility] [address] [place], [address] GAP 13 Normal 5-15 [facility] Comment on above: Performed By: #### L [id number], L100.0100 ####[facility] [address] [place], [address] GFR/1.73 sq M.predicted among non-blacks MDRD (S/P/Bld) [Vol rate/Area] 43 mL/min/{1.73_m2} Low >60 [facility] Comment on above: Result Comment: mL/m in/1.73m2 CKD-EPI Creatinine Equation (2020) Performed By: #### L [id number], L100.0100 ####[facility] [address] [place], [address] Globulin (S) [Mass/Vol] 3.3 g/dL Normal 2.2-4.2 [facility] Comment on above: Performed By: #### L [id number], L100.0100 ####[facility] [address] [place], [address] Glucose [Mass/Vol] 178 mg/dL High 70-99 [facility] Comment on above: Performed By: #### L 500.4050, L100.0100 ####[facility] [address] [place], [address] Potassium [Moles/Vol] 4.0 mmol/L Normal 3.3-5.1 [facility] Comment on above: Performed By: #### L 500.4050, L100.0100 ####[facility] [address] [place], [address] Sodium [Moles/Vol] 141 mmol/L Normal 133-145 [facility] Comment on above: Performed By: #### L [id number], L100.0100 ####[facility] [address] [place], [address] T PROT 7.4 g/dL Normal 5.9-8.4 [facility] Comment on above: Performed By: #### L 500.4050, L100.0100 ####[facility] [address] [place], [address] Urea nitrogen [Mass/Vol] 26 mg/dL High 4-19 [facility] Comment on above: Performed By: #### L 500.4050, L100.0100 ####[facility] [address] [place], [address] Emergency Department Summary on 07-22-2024 Emergency Department Summary Normal [facility] Eosinophil percentageOrdered By: Chaim Maurer on 07-22-2024 Eosinophils/100 WBC (Bld) 1.9 % 0-5 [facility] Erythrocyte distribution wid th ratioOrdered By: Chaim Maurer on 07-22-2024 Erythrocyte distribution width (RBC) [Ratio] 13.9 % 11.6-14.6 [facility] Erythrocyte distribution wid th standard deviationOrdered By: Chaim Maurer on 07-22-2024 Erythrocyte distribution width (RBC) [Ratio] 44.9 fl High 35.1-43.9 [facility] Glomerular filtration rate ( GFR) estimation/1.73 sq m using serum, plasma, or whole bOrdered By: Chaim Maurer on 07-22-2024 GFR/1.73 sq M.predicted among non-blacks MDRD (S/P/Bld) [Vol rate/Area] 43 mL/min/{1.73_m2} Low >60 [facility] Hematocrit Auto (Bld) [Volum e fraction]Ordered By: Chaim Maurer on 07-22-2024 Hematocrit (Bld) [Volume fraction] 40.8 % 37-47 [facility] Hemoglobin measurementOrdere d By: Chaim Maurer on 07-22-2024 Hemoglobin (Bld) [Mass/Vol] 13.0 g/dL 12.0-15.0 [facility] Immature granulocytes/100 WB C Auto (Bld)Ordered By: Chaim Maurer on 07-22-2024 Immature granulocytes/100 WBC (Bld) 0.600 % 0.0-0.9 [facility] Internal Medicine Office Vis iton 07-22-2024 Internal Medicine Office Visit Normal [facility] MCV (mean corpuscular volume ) determinationOrdered By: Chaim Maurer on 07-22-2024 MCV (RBC) [Entitic vol] 89.1 fL 81-99 [facility] Mean corpuscular hemoglobin (MCH) determinationOrdered By: Chaim Maurer on 07-22-2024 MCH (RBC) [Entitic mass] 28.4 pg 27.0-32.0 [facility] Monocyte percentageOrdered B y: Chaim Maurer on 07-22-2024 Monocytes/100 WBC (Bld) 7.3 % 0-10 [facility] Neutrophil percentageOrdered By: Chaim Maurer on 07-22-2024 Neutrophils/100 WBC (Bld) 52.8 % 47-70 [facility] No Panel InformationOrdered By: Chaim Maurer on 07-22-2024 20 U/L <32 [facility] No Panel InformationOrdered By: Charla Wadsworth on 07-22-2024 6.9 % High 4.2-6.3 [facility] Platelet countOrdered By: Kaity Maurer on 07-22-2024 Platelets (Bld) [#/Vol] 269 10*3/uL 150-450 [facility] Potassium measurement (mass/ volume)Ordered By: Chaim Maurer on 07-22-2024 Potassium (Unsp spec) [Mass/Vol] 4.0 mmol/L 3.3-5.1 [facility] RBC Auto (Bld) [#/Vol]Ordere d By: Chaim Maurer on 07-22-2024 RBC (Bld) [#/Vol] 4.58 10*6/uL 4.2-5.4 [facility] Serum creatinine measurement (mass/volume)Ordered By: Chaim Maurer on 07-22-2024 Creatinine [Mass/Vol] 1.42 mg/dL High 0.70-1.20 [facility] Serum globulin measurementOr dered By: Chaim Maurer on 07-22-2024 Globulin (S) [Mass/Vol] 3.3 g/dL 2.2-4.2 [facility] Serum glucose measurement (m ass/volume)Ordered By: Chaim Maurer on 07-22-2024 Glucose [Mass/Vol] 178 mg/dL High 70-99 [facility] Serum or plasma alanine cortes otransferase (ALT) measurementOrdered By: Chaim Maurer on 07-22-2024 ALT [Catalytic activity/Vol] 18 U/L <35 [facility] Serum or plasma albumin heather urement (mass/volume)Ordered By: Chaim Maurer on 07-22-2024 Albumin [Mass/Vol] 4.2 g/dL 3.5-5.0 [facility] Serum or plasma albumin/glob ulin mass ratioOrdered By: Chaim Maurer on 07-22-2024 Albumin/Globulin [Mass ratio] 1.3 {ratio} 0.9-2.4 [facility] Serum or plasma alkaline osorio sphatase measurementOrdered By: Chaim Maurer on 07-22-2024 ALP [Catalytic activity/Vol] 76 U/L 35-104 [facility] Serum or plasma calcium heather urement (mass/volume)Ordered By: Chaim Maurer on 07-22-2024 Calcium [Mass/Vol] 9.5 mg/dL 7.6-11.0 [facility] Serum or plasma urea nitroge n measurement (mass/volume)Ordered By: Chaim Maurer on 07-22-2024 Urea nitrogen [Mass/Vol] 26 mg/dL High 4-19 [facility] Sodium levelOrdered By: Raeann Maurer on 07-22-2024 Sodium [Moles/Vol] 141 mmol/L 133-145 [facility] Total proteinOrdered By: Latrice Maurer on 07-22-2024 Protein [Mass/Vol] 7.4 g/dL 5.9-8.4 [facility] Urinalysis, Completeon 07-22 BACTERIA Normal None Seen [facility] Comment on above: Order Comment: ADOLPH CTOR TO SPECIFY Result Comment: Canc elled via OM: MD Ordered Performed By: #### L [id number] ####[facility] [address] [place], [place], [id number] BILIRUBIN URINE Normal Negative [facility] Comment on above: Order Comment: ADOLPH CTOR TO SPECIFY Result Comment: Canc elled via OM: MD Ordered Performed By: #### L [id number] ####[facility] [address] [place], [address] Clarity (U) Normal Clear [facility] Comment on above: Order Comment: ADOLPH CTOR TO SPECIFY Result Comment: Canc elled via OM: MD Ordered Performed By: #### L [id number] ####[facility] [address] [place], [address] Color (U) Normal Yellow [facility] Comment on above: Order Comment: COLLE CTOR TO SPECIFY Result Comment: Canc elled via OM: MD Ordered Performed By: #### L [id number] ####[facility] [address] [place], [address] EPI,SQUAMOUS Normal 5-10 [facility] Comment on above: Order Comment: COLLE CTOR TO SPECIFY Result Comment: Canc elled via OM: MD Ordered Performed By: #### L [id number] ####[facility] [address] [place], [address] GLUCOSE, UR Normal Normal [facility] Comment on above: Order Comment: COLLE CTOR TO SPECIFY Result Comment: Canc elled via OM: MD Ordered Performed By: #### L [id number] ####[facility] [address] [place], [address] KETONE UR Normal Negative [facility] Comment on above: Order Comment: ADOLPH CTOR TO SPECIFY Result Comment: Canc elled via OM: MD Ordered Performed By: #### L [id number] ####[facility] [address] [place], [address] LEUK ESTERASE Normal Negative [facility] Comment on above: Order Comment: COLLE CTOR TO SPECIFY Result Comment: Canc elled via OM: MD Ordered Performed By: #### L [id number] ####[facility] [address] [place], [address] Mucus Ql (Urine sed) Normal [facility] Comment on above: Order Comment: ADOLPH CTOR TO SPECIFY Result Comment: Canc elled via OM: MD Ordered Performed By: #### L [id number] ####[facility] [address] [place], [address] Nitrite Ql (U) Normal Negative [facility] Comment on above: Order Comment: ADOLPH CTOR TO SPECIFY Result Comment: Canc elled via OM: MD Ordered Performed By: #### L [id number] ####[facility] [address] [place], [address] OCCULT BLOOD-UR Normal Negative [facility] Comment on above: Order Comment: COLLE CTOR TO SPECIFY Result Comment: Canc elled via OM: MD Ordered Performed By: #### L [id number] ####[facility] [address] [place], [address] pH UR Normal 5.0 - 8.0 [facility] Comment on above: Order Comment: COLLE CTOR TO SPECIFY Result Comment: Canc elled via OM: MD Ordered Performed By: #### L [id number] ####[facility] [address] [place], [address] PROT DIPSTX Normal Negative [facility] Comment on above: Order Comment: COLLE CTOR TO SPECIFY Result Comment: Canc elled via OM: MD Ordered Performed By: #### L 400.0001 ####[facility] [address] [place], [address] RBC Normal 0-5 [facility] Comment on above: Order Comment: COLLE CTOR TO SPECIFY Result Comment: Canc elled via OM: MD Ordered Performed By: #### L 400.0001 ####[facility] [address] [place], [address] SP.GR. DIPSTX Normal 1.002-1.030 [facility] Comment on above: Order Comment: COLLE CTOR TO SPECIFY Result Comment: Canc elled via OM: MD Ordered Performed By: #### L 400.0001 ####[facility] [address] [place], [address] UR Preservative Normal [facility] Comment on above: Order Comment: COLLE CTOR TO SPECIFY Result Comment: Canc elled via OM: MD Ordered Performed By: #### L 400.0001 ####[facility] [address] [place], [address] UROBILI Normal Normal [facility] Comment on above: Order Comment: COLLE CTOR TO SPECIFY Result Comment: Canc elled via OM: MD Ordered Performed By: #### L 400.0001 ####[facility] [address] [place], [place], [address] WBC Normal 0-5 [facility] Comment on above: Order Comment: ADOLPH KRUSE TO SPECIFY Result Comment: Deepa best via OM: Ordered Performed By: #### L 400.0001 ####[facility] [address] [place], [address] White blood cell (WBC) count Ordered By: Chaim Maurer on 07-22-2024 WBC (Bld) [#/Vol] 10.9 10*3/uL 4.4-11.0 [facility] CNPNon 07-13-2024 CNPN Telephone (AGPOB1) RAMSES BRADSHAW ([id number]) 1965 F Date Time Provider Department 07/13/24 BUTCH MAYS AGASHERB1 During your visit today, we recorded the following information about you: Dari Trujillo 07/13/2024 9:50 AM Signed I will rout to Dr. Mays for signature. Dari Sheth July 13, 2024 9:50 AM Dari Trujillo 07/15/2024 8:11 AM Signed Called centralized scheduling at [facility] on 07/14/24 to set up STAT MRI's for this patient but was told due to Implant the MRI department will have to call me to schedule. Patient is in a facility in [place] and they will need at least a 48 hour notice for transportation. I spoke to nurse at [facility] in [place] [phone]. Dari Gil Dam Tender AssistantDari Littlejohn 07/17/2024 8:30 AM Signed Received call from [facility] and MRI 's have been moved up to Saturday08/04/24 at [facility] and follow up with Dr. Mays is on 08/06/24 in [facility]. Gave all appointment information to Juana at [facility] in [place]. Told Juana that patient need to bring remote and make sure her device is fully charged. Dari Gil [place] [facility] July 17, 2024 8:30 AM Allergies [...] region [M48.02] Order(s):MRI CERVICAL SPINE WO IVCON [[id number]] Order #: [id number] FUTURE MRI THORACIC SPINE WO IVCON [[id number]] Order #: [id number] FUTURE Prescriptions as of 07/17/2024 - isosorbide [...] 07/03/2024 Hypothyroid (more content not included)... Normal [facility] CNDSon 07-04-2024 CNDS HNO ID: [id number] Author: DILMA GARAY MD Service: Hospital Medicine [...] Attending Provider: Dilma Garay MD Primary Service: [facility] Consulting: Butch Mays MD MY CONDITION AT [...] any family that can bring in the gas charger for the remote. Due to this MRI [...] call for appointment?: Yes Charla Wadsworth MD [phone] [address] [facility] [address] PCP Requested Referral Follow-up Appointment When: In 1 week Patient/Parents to call for appointment?: Yes Butch Mays MD [phone] [place] [address] PCP Requested Referral Additional Provider to Provider Information: Morbid Obesity Class 3 Treatment Team: Attending Provider: Dilma Garay MD Primary Service: [facility] Consulting: Butch Mays MD Transitions of Care Critical Issues: SPECIALIST FOLLOW-UP: Ortho spine LYLES MEDICATION CHANGES: Lidocaine patch, Continue percocet PRN LABS AND PROCEDURES PENDING AT DISCHARGE: No pending results. FOLLOW-UP APPOINTMENTS ALREADY SCHEDULED WITH A [facility] PROVIDER: No future appointments. ALLERGIES Allergen Reactions [...] metoprolol tartrat (more content not included)... Normal [facility] THERAPY NTon 07-04-2024 THERAPY NT HNO ID: [id number] Author: JANETH ALLISON OTR/Catina Service: Occupational Therapy Author Type: Occupational Therapist Type: Therapy (PT/OT/Speech/Resp) Filed: 07/04/2024 13:05 Note Text: Occupational Therapy Evaluation Summary SERVICE DATE: 07/04/2024 SERVICE TIME: 1059 to 1122 ROOM: [place] [address] OT 6 Clicks Score: 15 DISCHARGE RECOMMENDATIONS [...] symptoms and signs-other TREATMENT INTERVENTIONS Evaluation, Self Shelter Management (14100) Timed Code Treatment (minutes): 8 Skilled Treatment Time (minutes): 23 $ Evaluation - Moderate (55030) Billed Units: 1 unit Self Shelter Management (52768) Treatment Minutes: 8 $ Self Shelter Management (76229) Billed Units: 1 unit TRAINING AND EDUCATION [...] Occupational Therapy, Safety/Judgment, Sitting Balance to Improve Hawkins with ADLs/Self-Care, Standing Balance to Improve [place] with ADLs/Self-Care, Transfer - Sit to Stand, [...] in ro (more content not included)... Normal [facility] ALLIED HEALTHon 07-03-2024 ALLIED HEALTH HNO ID: [id number] Author: EUGENIO LOUISE Tech Service: ? Author [...] PATIENT PRESENTS WITH AN IMPLANTABLE OR ATTACHED MULLING MACHINE OPERATOR: No RADIOLOGY DEPARTMENT: CT; Exam(s) Completed: Spine PERIPHERAL IV DATA: Inpatient: see LDA documentation SIGNED BY: Candelario Collier July 03, 2024 5:28 PM Normal [facility] CBC panel Auto (Bld)on 07-03 Erythrocyte distribution width (RBC) [Ratio] 13.9 % Normal 11.5-15.0 [facility] Comment on above: Order Comment: Donell orozco Type: BLOOD SPECIMEN Ordering Facility: [facility] Address: [address] [place] [address] Performed By: #### 5 8410-2 #### [facility] CLIA [id number] [address] [place] [address] [place] Hematocrit (Bld) [Volume fraction] 41.4 % Normal 36.0-46.0 [facility] Comment on above: Order Comment: Donell orozco Type: BLOOD SPECIMEN Ordering Facility: [facility] Address: [address] [place], [place] [address] Performed By: #### 5 8410-2 #### [facility] CLIA [id number] [address] Hemoglobin (Bld) [Mass/Vol] 13.4 g/dL Normal 11.5-15.5 [facility] Comment on above: Order Comment: Speci men Type: BLOOD SPECIMEN Ordering Facility: [facility] Address: [address] [place] [address] Performed By: #### 5 8410-2 #### [facility] CLIA [id number] [address] MCH (RBC) [Entitic mass] 28.8 pg Normal 26.0-34.0 [facility] Comment on above: Order Comment: Speci men Type: BLOOD SPECIMEN Ordering Facility: [facility] Address: [address] [place] [address] Performed By: #### 5 8410-2 #### [facility] CLIA [id number] [address] MCHC (RBC) [Mass/Vol] 32.4 g/dL Normal 30.5-36.0 [facility] Comment on above: Order Comment: Speci men Type: BLOOD SPECIMEN Ordering Facility: [facility] Address: [address] [place] [address] Performed By: #### 5 8410-2 #### [facility] CLIA [id number] [address] MCV (RBC) [Entitic vol] 89.0 fL Normal 80.0-100.0 [facility] Comment on above: Order Comment: Speci men Type: BLOOD SPECIMEN Ordering Facility: [facility] Address: [address] [place] [address] Performed By: #### 5 8410-2 #### [facility] CLIA [id number] [address] OF [facility] Nucleated RBC (Bld) [#/Vol] 10*3/uL Normal <0.01 [facility] Comment on above: Order Comment: Speci men Type: BLOOD SPECIMEN Ordering Facility: [facility] Address: [address] [place] [address] Performed By: #### 5 8410-2 #### [facility] CLIA [id number] [address] [place] Platelet mean volume (Bld) [Entitic vol] 9.4 fL Normal 9.0-12.7 [facility] Comment on above: Order Comment: Speci men Type: BLOOD SPECIMEN Ordering Facility: [facility] Address: [address] [place] [address] Performed By: #### 5 8410-2 #### [facility] CLIA [id number] [address] [place] Platelets (Bld) [#/Vol] 219 10*3/uL Normal 150-400 [facility] Comment on above: Order Comment: Speci men Type: BLOOD SPECIMEN Ordering Facility: [facility] Address: [address] [place] [address] Performed By: #### 5 8410-2 #### [facility] CLIA [id number] [address] [place] [address] [place] RBC (Bld) [#/Vol] 4.65 10*6/uL Normal 3.90-5.20 [facility] Comment on above: Order Comment: Speci men Type: BLOOD SPECIMEN Ordering Facility: [facility] Address: [address] [place] [address] Performed By: #### 5 8410-2 #### [facility] CLIA [id number] [address] [place] [address] [place] WBC (Bld) [#/Vol] 8.42 10*3/uL Normal 3.70-11.00 [facility] Comment on above: Order Comment: Speci men Type: BLOOD SPECIMEN Ordering Facility: [facility] Address: [address] [place] [address] Performed By: #### 5 8410-2 #### [facility] CLIA [id number] [address] Erythrocyte distribution width (RBC) [Ratio] 13.6 % Normal 11.5-15.0 [facility] Comment on above: Order Comment: Speci men Type: BLOOD SPECIMEN Ordering Facility: [facility] Address: [address] [place] [address] Performed By: #### 5 8410-2 #### [facility] CLIA [id number] [address] OF [place] Hematocrit (Bld) [Volume fraction] 41.1 % Normal 36.0-46.0 [facility] Comment on above: Order Comment: Speci men Type: BLOOD SPECIMEN Ordering Facility: [facility] Address: [address] [place] [address] Performed By: #### 5 8410-2 #### [facility] CLIA [id number] [address] STATES OF [facility] Hemoglobin (Bld) [Mass/Vol] 13.0 g/dL Normal 11.5-15.5 [facility] Comment on above: Order Comment: Speci men Type: BLOOD SPECIMEN Ordering Facility: [facility] Address: [address] [place] [address] Performed By: #### 5 8410-2 #### [facility] CLIA [id number] [address] OF [facility] MCH (RBC) [Entitic mass] 28.6 pg Normal 26.0-34.0 [facility] Comment on above: Order Comment: Speci men Type: BLOOD SPECIMEN Ordering Facility: [facility] Address: [address] [place] [address] Performed By: #### 5 8410-2 #### [facility] CLIA [id number] [address] [place] MCHC (RBC) [Mass/Vol] 31.6 g/dL Normal 30.5-36.0 [facility] Comment on above: Order Comment: Speci men Type: BLOOD SPECIMEN Ordering Facility: [facility] Address: [address] [place] [address] Performed By: #### 5 8410-2 #### [facility] CLIA [id number] [address] OF [place] MCV (RBC) [Entitic vol] 90.5 fL Normal 80.0-100.0 [facility] Comment on above: Order Comment: Speci men Type: BLOOD SPECIMEN Ordering Facility: [facility] Address: [address] [place] [address] Performed By: #### 5 8410-2 #### [facility] CLIA [id number] [address] OF [place] Nucleated RBC (Bld) [#/Vol] 10*3/uL Normal <0.01 [facility] Comment on above: Order Comment: Speci men Type: BLOOD SPECIMEN Ordering Facility: [facility] Address: [address] [place] [address] Performed By: #### 5 8410-2 #### [facility] CLIA [id number] [address] [place] Platelet mean volume (Bld) [Entitic vol] 9.2 fL Normal 9.0-12.7 [facility] Comment on above: Order Comment: Speci men Type: BLOOD SPECIMEN Ordering Facility: [facility] Address: [address] [place] [address] Performed By: #### 5 8410-2 #### [facility] CLIA [id number] [address] OF [place] Platelets (Bld) [#/Vol] 203 10*3/uL Normal 150-400 [facility] Comment on above: Order Comment: Speci men Type: BLOOD SPECIMEN Ordering Facility: [facility] Address: [address] [place] [address] Performed By: #### 5 8410-2 #### [facility] CLIA [id number] [address] [place] RBC (Bld) [#/Vol] 4.54 10*6/uL Normal 3.90-5.20 [facility] Comment on above: Order Comment: Specbipin orozco Type: BLOOD SPECIMEN Ordering Facility: [facility] Address: [address] [place] [address] Performed By: #### 5 8410-2 #### [facility] CLIA [id number] [address] WBC (Bld) [#/Vol] 7.47 10*3/uL Normal 3.70-11.00 [facility] Comment on above: Order Comment: Speci men Type: BLOOD SPECIMEN Ordering Facility: [facility] Address: [address] [place], [place] [address] Performed By: #### 5 8410-2 #### [facility] CLIA [id number] [address] CONSULTon 07-03-2024 CONSULT HNO ID: [id number] Author: BUTCH MAYS MD Service: Orthopaedic Surgery [...] HPI: 58 year old female presented to [facility] with increased lower back and mid back [...] patient had a prior L4-L5 PSIF at [facility] but is unsure of when that occurred but states it was done due to back pain. PAST MEDICAL HISTORY Diagnosis Date Anxiety Atrial fibrillation ([facility]) 07/03/2024 CAD (coronary artery disease) 07/03/2024 Congestive heart failure ([facility]) 07/03/2024 Controlled type 2 diabetes mellitus without complication, without long-term current use of insulin ([facility]) 07/03/2024 COPD (chronic obstructive pulmonary disease) ([facility]) 07/03/2024 Depression Gastric mass Hypertension Hypothyroid ELOY (obstructive sleep apnea) 07/03/[address] bangura . pacemaker checked at [facility] Sick sinus syndrome ([facility]) Sleep apnea uses cpap at night PAST SURGICAL HISTORY Procedure Laterality Date ANESTHESIA LUMBAR REGION NOS 02/07/2016 L4-L5 fusion; [facility] APPENDECTOMY CARPAL TUNNEL left HYSTERECTOMY [...] H levothyr (more content not included)... Normal [facility] CT LUMBAR SPINE WO IVCONon 0 07-03-2024 CT LUMBAR SPINE WO IVCON * * *Final Report* * * DATE OF EXAM: Jul 03 2024 5:31PM [facility] 0508 - CT LUMBAR SPINE WO IVCON [...] 4. Mild progression of lower thoracic spondylosis. Ditch Worker: [facility] Transcribe Date/Time: Jul 03 2024 6:15P Dictated by : IDA RUFFIN MD This examination was interpreted and the report reviewed and electronically signed by: IDA RUFFIN MD on Jul 03 2024 6:26PM EST [id number] Normal [facility] CT THORACIC SPINE WO IVCONon 07-03-2024 CT THORACIC SPINE WO IVCON * * *Final Report* * * DATE OF EXAM: Jul 03 2024 5:31PM [facility] 0514 - CT THORACIC SPINE WO [...] 4. Mild progression of lower thoracic spondylosis. Ditch Worker: [facility] Transcribe Date/Time: Jul 03 2024 6:15P Dictated by : IDA RUFFIN MD This examination was interpreted and the report reviewed and electronically signed by: IDA RUFFIN MD on Jul 03 2024 6:26PM EST [id number] Normal [facility] Comprehensive metabolic 2000 panelon 07-03-2024 Albumin [Mass/Vol] 4.1 g/dL Normal 3.9-4.9 [facility] Comment on above: Order Comment: Speci men Type: BLOOD SPECIMEN Ordering Facility: [facility] Address: [address] [place] [address] Performed By: #### 2 4323-8, 76977-2, 6-3, 7 #### [facility] CLIA [id number] [address] [place] ALP [Catalytic activity/Vol] 64 U/L Normal 34-123 [facility] Comment on above: Order Comment: Speci men Type: BLOOD SPECIMEN Ordering Facility: [facility] Address: [address] [place] [address] Performed By: #### 2 4323-8, 24484-2, 6-3, 3027 #### [facility] CLIA [id number] [address] [place] [address] [place] ALT With P-5'-P [Catalytic activity/Vol] 24 U/L Normal 7-38 [facility] Comment on above: Order Comment: Speci men Type: BLOOD SPECIMEN Ordering Facility: [facility] Address: [address] [place] [address] Performed By: #### 2 4323-8, 85396-7, 6-3, 3023-7 #### [facility] CLIA [id number] [address] STATES OF [facility] Anion gap [Moles/Vol] 9 mmol/L Normal 8-15 [facility] Comment on above: Order Comment: Speci men Type: BLOOD SPECIMEN Ordering Facility: [facility] Address: [address] [place] [address] Performed By: #### 2 4323-8, 21504-7, 3015-3, 7 #### [facility] CLIA [id number] [address] [place] AST With P-5'-P [Catalytic activity/Vol] 24 U/L Normal 13-35 [facility] Comment on above: Order Comment: Speci men Type: BLOOD SPECIMEN Ordering Facility: [facility] Address: [address] [place] [address] Performed By: #### 2 4323-8, 35729-3, 3015-3, 3023-7 #### [facility] CLIA [id number] [address] [place] Bilirubin [Mass/Vol] 0.2 mg/dL Normal 0.2-1.3 [facility] Comment on above: Order Comment: Speci men Type: BLOOD SPECIMEN Ordering Facility: [facility] Address: [address] [place] [address] Performed By: #### 2 4323-8, 38078-1, 6-3, 302-7 #### [facility] CLIA [id number] [address] [place] Calcium [Mass/Vol] 9.3 mg/dL Normal 8.5-10.2 [facility] Comment on above: Order Comment: Speci men Type: BLOOD SPECIMEN Ordering Facility: [facility] Address: [address] [place] [address] Performed By: #### 2 4323-8, 20856-5, 3016-3, 3024-7 #### [facility] CLIA [id number] [address] [place] [address] [place] Chloride [Moles/Vol] 106 mmol/L Normal 98-107 [facility] Comment on above: Order Comment: Speci men Type: BLOOD SPECIMEN Ordering Facility: [facility] Address: [address] [place] [address] Performed By: #### 2 4323-8, 18245-7, 3016-3, 3024-7 #### [facility] CLIA [id number] [address] [place] CO2 [Moles/Vol] 26 mmol/L Normal 22-30 [facility] Comment on above: Order Comment: Speci men Type: BLOOD SPECIMEN Ordering Facility: [facility] Address: [address] [place] [address] Performed By: #### 2 4323-8, 12513-4, 3016-3, 3024-7 #### [facility] CLIA [id number] [address] [place] Creatinine [Mass/Vol] 1.16 mg/dL High 0.58-0.96 [facility] Comment on above: Order Comment: Speci men Type: BLOOD SPECIMEN Ordering Facility: [facility] Address: [address] [place] [address] Performed By: #### 2 4323-8, 75054-5, 3016-3, 3024-7 #### [facility] CLIA [id number] [address] Creatinine and Glomerular filtration rate.predicted panel (S/P/Bld) 55 mL/min/1.73m??? Low >=60 [facility] Comment on above: Order Comment: Speci men Type: BLOOD SPECIMEN Ordering Facility: [facility] Address: [address] [place] [address] Result Comment: Susan mated Glomerular Filtration Rate [...] actual GFR. Performed By: #### 2 4323-8, 24571-2, 6-3, 3023-7 #### [facility] CLIA [id number] [address] [place] [address] [place] Glucose [Mass/Vol] 113 mg/dL High 74-99 [facility] Comment on above: Order Comment: Donell orozco Type: BLOOD SPECIMEN Ordering Facility: [facility] Address: [address] [place] [address] Result Comment: The [place] [employer] Association (ADA) provides guidance for cutoff [...] Standards of Medical Care in Diabetes 2016, [place] [employer]. Diabetes Care. 2016.39(Suppl 1). Performed By: #### 2 4323-8, 97270-8, 3015-3, 7 #### [facility] CLIA [id number] [address] [place] [address] [place] Potassium [Moles/Vol] 4.0 mmol/L Normal 3.7-5.1 [facility] Comment on above: Order Comment: Donell orozco Type: BLOOD SPECIMEN Ordering Facility: [facility] Address: [address] [place] [address] Performed By: #### 2 4323-8, 64760-8, 3015-3, 3023-7 #### [facility] CLIA [id number] [address] [place] [address] [place] Protein [Mass/Vol] 6.9 g/dL Normal 6.3-8.0 [facility] Comment on above: Order Comment: Speci men Type: BLOOD SPECIMEN Ordering Facility: [facility] Address: [address] [place] [address] Performed By: #### 2 4323-8, 30707-4, 6-3, 3024-7 #### [facility] CLIA [id number] [address] [place] [address] [place] Sodium [Moles/Vol] 141 mmol/L Normal 136-144 [facility] Comment on above: Order Comment: Speci men Type: BLOOD SPECIMEN Ordering Facility: [facility] Address: [address] [place] [address] Performed By: #### 2 4323-8, 56474-2, 6-3, 3024-7 #### [facility] CLIA [id number] [address] [place] Urea nitrogen [Mass/Vol] 17 mg/dL Normal 7-21 [facility] Comment on above: Order Comment: Speci men Type: BLOOD SPECIMEN Ordering Facility: [facility] Address: [address] [place] [address] Performed By: #### 2 4323-8, 98043-8, 6-3, 3024-7 #### [facility] CLIA [id number] [address] [place] [address] [place] Albumin [Mass/Vol] 3.9 g/dL Normal 3.9-4.9 [facility] Comment on above: Order Comment: Speci men Type: BLOOD SPECIMEN Ordering Facility: [facility] Address: [address] [place] [address] Performed By: #### 2 4323-8 #### [facility] CLIA [id number] [address] [place] [address] [place] ALP [Catalytic activity/Vol] 59 U/L Normal 34-123 [facility] Comment on above: Order Comment: Speci men Type: BLOOD SPECIMEN Ordering Facility: [facility] Address: [address] [place] [address] Performed By: #### 2 4323-8 #### [facility] CLIA [id number] [address] OF [facility] ALT With P-5'-P [Catalytic activity/Vol] 20 U/L Normal 7-38 [facility] Comment on above: Order Comment: Speci men Type: BLOOD SPECIMEN Ordering Facility: [facility] Address: [address] [place] [address] Performed By: #### 2 4323-8 #### [facility] CLIA [id number] [address] OF [place] Anion gap [Moles/Vol] 8 mmol/L Normal 8-15 [facility] Comment on above: Order Comment: Speci men Type: BLOOD SPECIMEN Ordering Facility: [facility] Address: [address] [place] [address] Performed By: #### 2 4323-8 #### [facility] CLIA [id number] [address] [place] With P-5'-P [Catalytic activity/Vol] 18 U/L Normal 13-35 [facility] Comment on above: Order Comment: Speci men Type: BLOOD SPECIMEN Ordering Facility: [facility] Address: [address] [place] [address] Performed By: #### 2 4323-8 #### [facility] CLIA [id number] [address] [place] Bilirubin [Mass/Vol] 0.2 mg/dL Normal 0.2-1.3 [facility] Comment on above: Order Comment: Speci men Type: BLOOD SPECIMEN Ordering Facility: [facility] Address: [address] [place] [address] Performed By: #### 2 4323-8 #### [facility] CLIA [id number] [address] [place] Calcium [Mass/Vol] 9.3 mg/dL Normal 8.5-10.2 [facility] Comment on above: Order Comment: Speci men Type: BLOOD SPECIMEN Ordering Facility: [facility] Address: [address] [place] [address] Performed By: #### 2 4323-8 #### [facility] CLIA [id number] [address] [place] Chloride [Moles/Vol] 109 mmol/L High 98-107 [facility] Comment on above: Order Comment: Speci men Type: BLOOD SPECIMEN Ordering Facility: [facility] Address: [address] [place] [address] Performed By: #### 2 4323-8 #### [facility] CLIA [id number] [address] OF [place] CO2 [Moles/Vol] 27 mmol/L Normal 22-30 [facility] Comment on above: Order Comment: Speci men Type: BLOOD SPECIMEN Ordering Facility: [facility] Address: [address] [place] [address] Performed By: #### 2 4323-8 #### [facility] CLIA [id number] [address] [place] Creatinine [Mass/Vol] 1.21 mg/dL High 0.58-0.96 [facility] Comment on above: Order Comment: Speci men Type: BLOOD SPECIMEN Ordering Facility: [facility] Address: [address] [place] [address] Performed By: #### 2 4323-8 #### [facility] CLIA [id number] [address] [place] Creatinine and Glomerular filtration rate.predicted panel (S/P/Bld) 52 mL/min/1.73m??? Low >=60 [facility] Comment on above: Order Comment: Speci men Type: BLOOD SPECIMEN Ordering Facility: [facility] Address: [address] [place] [address] Result Comment: Susan mated Glomerular Filtration Rate [...] GFR. Performed By: #### 2 4323-8 #### [facility] CLIA [id number] 1 [place] [address] [place] Glucose [Mass/Vol] 116 mg/dL High 74-99 [facility] Comment on above: Order Comment: Speci men Type: BLOOD SPECIMEN Ordering Facility: [facility] Address: [address] [place] [address] Result Comment: The [place] [employer] (ADA) provides guidance for cutoff [...] Standards of Medical Care in Diabetes 2016, [place] [employer]. Diabetes Care. 2016.39(Suppl 1). Performed By: #### 2 4323-8 #### [facility] CLIA [id number] 1 [place] [address] [place] Potassium [Moles/Vol] 4.2 mmol/L Normal 3.7-5.1 [facility] Comment on above: Order Comment: Donell men Type: BLOOD SPECIMEN Ordering Facility: [facility] Address: [address] [place] [id number] Performed By: #### 2 4323-8 #### [facility] CLIA [id number] 1 [place] [address] [place] Protein [Mass/Vol] 6.7 g/dL Normal 6.3-8.0 [facility] Comment on above: Order Comment: Speci men Type: BLOOD SPECIMEN Ordering Facility: [facility] Address: [address] [place], [place] [address] Performed By: #### 2 4323-8 #### [facility] CLIA [id number] [address] Sodium [Moles/Vol] 144 mmol/L Normal 136-144 [facility] Comment on above: Order Comment: Speci men Type: BLOOD SPECIMEN Ordering Facility: [facility] Address: [address] [place] [address] Performed By: #### 2 4323-8 #### [facility] CLIA [id number] [address] STATES OF [facility] Urea nitrogen [Mass/Vol] 17 mg/dL Normal 7-21 [facility] Comment on above: Order Comment: Speci men Type: BLOOD SPECIMEN Ordering Facility: [facility] Address: [address] [place] [address] Performed By: #### 2 4323-8 #### [facility] CLIA [id number] [address] [place] HISTORY PHYSICALon HISTORY PHYSICAL HNO ID: [id number] Author: JOSEFINA HELLER PA-C Service: Hospital Medicine Author Type: Physician Assistant Corporate Controller Type: H&P Filed: 07/03/2024 06:04 Note Text: DEPARTMENT OF HOSPITAL MEDICINE HISTORY AND PHYSICAL EXAM SERVICE DATE: 07/03/2024 SERVICE TIME: 5:10 AM Primary Care Physician: No primary care provider on file. NIGHT AND WEEKEND COVERAGE: From 7am - 7pm, please call [phone] After 7pm, please call cross cover pager #[phone] Subjective CHIEF COMPLAINT: Back pain HPI: This [...] MEDICAL HISTORY Diagnosis Date Anxiety Atrial fibrillation ([facility]) 07/03/2024 CAD (coronary artery disease) 07/03/2024 Congestive heart failure ([facility]) 07/03/2024 Controlled type 2 diabetes mellitus without complication, without long-term current use of insulin ([facility]) 07/03/2024 COPD (chronic obstructive pulmonary disease) ([facility]) 07/03/2024 Depression Gastric mass Hypertension Hypothyroid ELOY (obstructive sleep apnea) 07/03/[address] bangura . pacemaker checked at [facility] Sick sinus syndrome ([facility]) Sleep apnea uses cpap at night PAST SURGICAL HISTORY Procedure Laterality Date ANESTHESIA LUMBAR REGION NOS 02/07/2016 L4-L5 fusion; [facility] APPENDECTOMY CARPAL TUNNEL left HYSTERECTOMY HX LAPAROSCOPY DIAGNOSTIC NEUROPLASTY AND/TRANSPOSITION ULNAR NERVE ELBOW bilateral- with revisions PACEMAKER (PM) 2003 PAST SURGICAL HISTORY OF lumbar pain injections. FAMILY HISTORY Problem Relation Age of Onset Multiple Sclerosis Father 26 at age 41 Multiple Sclerosis Daughter 30 Mar 2016 other (orthostatic hypotension) Sister Social History Tobacco Use Smoking status: Former Current packs/day: 0.00 Average packs/day: 0.5 packs/day for 25.0 years (12.5 ttl pk-yrs) Types: Cigarettes Start date: 05/21/1990 Quit date: 05/22/2015 Years since quittin.1 Smokeless tobacco: Never Tobacco comments: quit 2 years ago Substance Use Topics Alcohol use: No Drug use: No Comment: Heavy EtOH use 2000. HOME MEDICATIONS: Prior to Admission Medications [...] mg by (more content not included)... Normal [facility] Magnesium [Mass/Vol] 2.0 mg/dL Normal 1.7-2.3 [facility] Comment on above: Order Comment: Speci men Type: BLOOD SPECIMEN Ordering Facility: [facility] Address: [address] [place], [place] [address] Performed By: #### 2 4323-8, 64639-9, 3016-3, 3024-7 #### [facility] CLIA [id number] [address] OF [facility] T3 SerPl-mCncon 07-03-2024 T3 [Mass/Vol] 146 ng/dL Normal 79-165 [facility] Comment on above: Order Comment: Speci men Type: BLOOD SPECIMEN Ordering Facility: [facility] Address: [address] [place] [address] Performed By: #### 3 053-6 #### [facility] CLIA [id number] [address] OF [facility] T4 Free SerPl-mCncon 025 Free T4 [Mass/Vol] 0.9 ng/dL Normal 0.9-1.7 [facility] Comment on above: Order Comment: Speci men Type: BLOOD SPECIMEN Ordering Facility: [facility] Address: [address] [place] [address] Performed By: #### 2 4323-8, 65948-6, 3016-3, 3024-7 #### [facility] CLIA [id number] [address] OF [facility] THERAPY NTon 07-03-2024 THERAPY NT HNO ID: [id number] Author: LEO SERRA OTR/L Service: Occupational Therapy Author Type: Occupational Therapist Type: Therapy (PT/OT/Speech/Resp) Filed: 07/03/2024 15:40 Note Text: OCCUPATIONAL THERAPY MISSED VISIT SERVICE DATE: 07/03/2024 SERVICE TIME: 1538 ROOM: [id number] Patient not seen due to Clinical Appropriateness (on BR, imaging pending.). SIGNATURE: LEAX Oliveira PATIENT NAME: Ramses Bradshaw DATE: July 03, 2024 TIME: 3:39 PM Normal [facility] THERAPY NT HNO ID: [id number] Author: SUMIT ARRIOLA, PT Service: Physical Therapy Author Type: Physical Therapist Type: Therapy (PT/OT/Speech/Resp) Filed: 07/03/2024 08:18 Note Text: PHYSICAL THERAPY MISSED VISIT SERVICE DATE: 07/03/2024 SERVICE TIME: 817 ROOM: [place] [address] Patient not seen due to Clinical Appropriateness (bedrest pending spine imaging per ortho). Will reattempt as available and appropriate. SIGNATURE: Sumit Arriola, PT PATIENT NAME: Ramses Bradshaw DATE: July 03, 2024 TIME: 8:18 AM Normal [facility] TSH SerPl-aCncon 07-03-2024 TSH Qn 8.130 m[IU]/L High 0.270-4.200 [facility] Comment on above: Order Comment: Speci men Type: BLOOD SPECIMEN Ordering Facility: [facility] Address: [address] [place] [address] Performed By: #### 2 4323-8, 12035-4, 3016-3, 3024-7 #### [facility] CLIA [id number] [address] [place] [address] STATES [place] [facility] XR CHEST 1V FRONTALon 2024 XR CHEST [...] apparatus, as above. No acute airspace disease. Ditch Worker: PSCKen Transcribe Date/Time: Jul 03 2024 4:06P Dictated by : ISABELA FELIPE MD This examination was interpreted and the report reviewed and electronically signed by: ISABELA FELIPE MD on Jul 03 2024 4:07PM EST [id number] Normal [facility] Absolute lymphocyte countOrd ered By: Kati Burkett on 07-02-2024 Lymphocytes Auto (Unsp spec) [#/Vol] 3.18 10*3/uL 0.83-4.51 [facility] Absolute neutrophil countOrd ered By: Kati Burkett on 07-02-2024 Absolute neutrophil count 4.0 X10^3/uL 2.0-7.7 [facility] Anion gap [Moles/Vol][facility]: [facility] 07-02-2024 Anion gap in Serum or Plasma 10 - [facility] Anion gap in Serum or Plasma Ordered By: [place]quito on 07-02-2024 Anion gap [Moles/Vol] 10 mmol/L 07-23 [facility] Automated lymphocyte count a s percentage of total leukocytesOrdered By: Kati Burkett on 07-02-2024 Lymphocytes/100 WBC Auto (Unsp spec) 40.0 % [facility] BUN/creatinine ratioOrdered By: Kati Burkett on 07-02-2024 Urea nitrogen/Creatinine [Mass ratio] 14.9 mg/mg - [facility] BUN/creatinine ratio 14.9 RATIO - [facility] Basic Metabolic Profile (BMP )on 07-02-2024 BUN/CRE 14.9 RATIO Normal - [facility] Comment on above: Performed By: #### L 100.0100, L500.2500 ####[facility] [address] [place], [address] Calcium [Mass/Vol] 9.8 mg/dL Normal 7.6-11.0 [facility] Comment on above: Performed By: #### L 100.0100, L500.2500 ####[facility] [address] [place], [address] Chloride [Moles/Vol] 105 mmol/L Normal 98-108 [facility] Comment on above: Performed By: #### L 100.0100, L500.2500 ####[facility] [address] [place], [address] CO2 [Moles/Vol] 25.2 mmol/L Normal 21.0-32.0 [facility] Comment on above: Performed By: #### L 100.0100, L500.2500 ####[facility] [address] [place], [address] Creatinine [Mass/Vol] 1.22 mg/dL High 0.70-1.20 [facility] Comment on above: Performed By: #### L 100.0100, L500.2500 ####[facility] [address] [place], [address] ECRCL 57.43 ml/min Normal 50-250 [facility] Comment on above: Performed By: #### L 100.0100, L500.2500 ####[facility] [address] [place], [address] GAP 10 Normal 5-15 [facility] Comment on above: Performed By: #### L 100.0100, L500.2500 ####[facility] [address] [place], [address] GFR/1.73 sq M.predicted among non-blacks MDRD (S/P/Bld) [Vol rate/Area] 51 mL/min/{1.73_m2} Low >60 [facility] Comment on above: Result Comment: mL/m in/1.73m2 CKD-EPI Creatinine Equation (2020) Performed By: #### L 100.0100, L500.2500 ####[facility] [address] [place], [address] Glucose [Mass/Vol] 129 mg/dL High 70-99 [facility] Comment on above: Performed By: #### L 100.0100, L500.2500 ####[facility] [address] [place], [address] Potassium [Moles/Vol] 4.5 mmol/L Normal 3.3-5.1 [facility] Comment on above: Performed By: #### L 100.0100, L500.2500 ####[facility] [address] [place], [address] Sodium [Moles/Vol] 140 mmol/L Normal 133-145 [facility] Comment on above: Performed By: #### L 100.0100, L500.2500 ####[facility] [address] [place], [address] Urea nitrogen [Mass/Vol] 18 mg/dL Normal 4-19 [facility] Comment on above: Performed By: #### L 100.0100, L500.2500 ####[facility] [address] [place], [address] Basophil percentageOrdered B y: Rem Ungur on 07-02-2024 Basophils/100 WBC (Bld) 0.4 % 0-1 [facility] Basophil percentage 0.4 % 0-1 [facility] CBC W/Diff, Automatedon 06-10 Absolute Lymph 3.18 X10 3/uL Normal 0.83-4.51 [facility] Comment on above: Performed By: #### L 100.0100, L500.2500 ####[facility] [address] [place], [address] Absolute Neut 4.0 X10 3/uL Normal 2.0-7.7 [facility] Comment on above: Performed By: #### L 100.0100, L500.2500 ####[facility] [address] [place], [address] Basophils/100 WBC (Bld) 0.4 % Normal 0-1 [facility] Comment on above: Performed By: #### L 100.0100, L500.2500 ####[facility] [address] [place], [address] Eosinophils/100 WBC (Bld) 2.5 % Normal 0-5 [facility] Comment on above: Performed By: #### L 100.0100, L500.2500 ####[facility] [address] [place], [address] Erythrocyte distribution width (RBC) [Ratio] 13.6 % Normal 11.6-14.6 [facility] Comment on above: Performed By: #### L 100.0100, L500.2500 ####[facility] [address] [place], [address] Hematocrit (Bld) [Volume fraction] 41.3 % Normal 37-47 [facility] Comment on above: Performed By: #### L 100.0100, L500.2500 ####[facility] [address] [place], [address] Hemoglobin (Bld) [Mass/Vol] 13.5 g/dL Normal 12.0-15.0 [facility] Comment on above: Performed By: #### L 100.0100, L500.2500 ####[facility] [address] [place], [address] IG% 0.500 Normal 0.0-0.9 [facility] Comment on above: Result Comment: IG% - Immature Granulocytes (promyelocytes, myelocytes andmetamyelocytes) > 1% indicates that a LEFT SHIFT is Present. Performed By: #### L 100.0100, L500.2500 ####[facility] [address] [place], [address] Lymphocytes/100 WBC (Bld) 40.0 % Normal 19-41 [facility] Comment on above: Performed By: #### L 100.0100, L500.2500 ####[facility] [address] [place], [address] MCH (RBC) [Entitic mass] 28.7 pg Normal 27.0-32.0 [facility] Comment on above: Performed By: #### L 100.0100, L500.2500 ####[facility] [address] [place], [address] MCHC (RBC) [Mass/Vol] 32.7 g/dL Normal 32-36 [facility] Comment on above: Performed By: #### L 100.0100, L500.2500 ####[facility] [address] [place], [address] MCV (RBC) [Entitic vol] 87.9 fL Normal 81-99 [facility] Comment on above: Performed By: #### L 100.0100, L500.2500 ####[facility] [address] [place], [address] Monocytes/100 WBC (Bld) 6.4 % Normal 0-10 [facility] Comment on above: Performed By: #### L 100.0100, L500.2500 ####[facility] [address] [place], [address] Neutrophils/100 WBC (Bld) 50.2 % Normal 47-70 [facility] Comment on above: Performed By: #### L 100.0100, L500.2500 ####[facility] [address] [place], [address] Nucleated RBC (Bld) [#/Vol] 0 10*3/uL Normal 0-5 [facility] Comment on above: Performed By: #### L 100.0100, L500.2500 ####[facility] [address] [place], [address] Platelet mean volume (Bld) [Entitic vol] 9.3 fL Normal 6.2-12.0 [facility] Comment on above: Performed By: #### L 100.0100, L500.2500 ####[facility] [address] [place], [address] Platelets (Bld) [#/Vol] 228 10*3/uL Normal 150-450 [facility] Comment on above: Performed By: #### L 100.0100, L500.2500 ####[facility] [address] [place], [address] RBC (Bld) [#/Vol] 4.70 10*6/uL Normal 4.2-5.4 [facility] Comment on above: Performed By: #### L 100.0100, L500.2500 ####[facility] [address] [place], [address] RDW SD 43.6 fl Normal 35.1-43.9 [facility] Comment on above: Performed By: #### L 100.0100, L500.2500 ####[facility] [address] [place], [address] WBC (Bld) [#/Vol] 8.0 10*3/uL Normal 4.4-11.0 [facility] Comment on above: Performed By: #### L 100.0100, L500.2500 ####[facility] [address] [place], [address] Calcium [Mass/Vol]Ordered By : Kati Burkett on 07-02-2024 Serum or plasma calcium measurement (mass/volume) 9.8 mg/dL 7.6-11.0 [facility] Carbon dioxide, total [Moles /volume] in Central venous bloodOrdered By: Kati Burkett on 07-02-2024 CO2 [Moles/Vol] 25.2 mmol/L 21.0-32.0 [facility] Carbon dioxide, total [Moles/volume] in Central venous blood 25.2 mmol/L 21.0-32.0 [facility] Chloride assayOrdered By: Shavon Burkett on 07-02-2024 Chloride [Moles/Vol] 105 mmol/L 98-108 [facility] Chloride assay 105 mmol/L 98-108 [facility] Creatinine [Mass/Vol]Ordered By: aKti Burkett on 07-02-2024 Serum creatinine measurement (mass/volume) 1.22 mg/dL High 0.70-1.20 [facility] Emergency Department Summary on 07-02-2024 Emergency Department Summary Normal [facility] Eosinophil percentageOrdered By: Kati Burkett on 07-02-2024 Eosinophils/100 WBC (Bld) 2.5 % 0-5 [facility] Eosinophil percentage 2.5 % 0-5 [facility] Erythrocyte distribution wid th (RBC) [Ratio]Ordered By: Kati Burkett on 07-02-2024 Erythrocyte distribution width ratio 13.6 % 11.6-14.6 [facility] Erythrocyte distribution width standard deviation 43.6 fl 35.1-43.9 [facility] Erythrocyte distribution wid th ratioOrdered By: Kati Burkett on 07-02-2024 Erythrocyte distribution width (RBC) [Ratio] 13.6 % 11.6-14.6 [facility] Erythrocyte distribution wid th standard deviationOrdered By: Kati Burkett on 07-02-2024 Erythrocyte distribution width (RBC) [Ratio] 43.6 fl 35.1-43.9 [facility] Estimation of creatinine jennifer aranceOrdered By: Kati Burkett on 07-02-2024 Estimation of creatinine clearance 57.43 ml/min 50-250 [facility] GFR/1.73 sq M.predicted barak g non-blacks MDRD (S/P/Bld) [Vol rate/Area]Ordered By: Kati Burkett on 07-02-2024 Glomerular filtration rate (GFR) estimation/1.73 sq m using serum, plasma, or whole b 51 Low >60 [facility] Glomerular filtration rate ( GFR) estimation/1.73 sq m using serum, plasma, or whole bOrdered By: Kati Burkett on 07-02-2024 GFR/1.73 sq M.predicted among non-blacks MDRD (S/P/Bld) [Vol rate/Area] 51 mL/min/{1.73_m2} Low >60 [facility] Glucose [Mass/Vol]Ordered By : Kati Burkett on 07-02-2024 Serum glucose measurement (mass/volume) 129 mg/dL High 70-99 [facility] Hematocrit Auto (Bld) [Volum e fraction]Ordered By: Kati Burkett on 07-02-2024 Hematocrit (Bld) [Volume fraction] 41.3 % 37-47 [facility] Automated blood hematocrit (percentage) 41.3 % 37-47 [facility] Hemoglobin measurementOrdere d By: Kati Burkett on 07-02-2024 Hemoglobin (Bld) [Mass/Vol] 13.5 g/dL 12.0-15.0 [facility] Hemoglobin measurement 13.5 g/dL 12.0-15.0 [facility] Immature granulocytes/100 WB C Auto (Bld)Ordered By: Kati Burkett on 07-02-2024 Immature granulocytes/100 WBC (Bld) 0.500 % 0.0-0.9 [facility] Automated immature granulocyte percentage 0.500 % 0.0-0.9 [facility] Lymphocytes Auto (Unsp spec) [#/Vol]Ordered By: Kati Burkett on 07-02-2024 Absolute lymphocyte count 3.18 X10^3/uL 0.83-4.51 [facility] Lymphocytes/100 WBC Auto (Un sp spec)Ordered By: Kati Burkett on 07-02-2024 Automated lymphocyte count as percentage of total leukocytes 40.0 % 19-41 [facility] MCV (RBC) [Entitic vol]Order ed By: Kati Burkett on 07-02-2024 MCV (mean corpuscular volume) determination 87.9 fL 81-99 [facility] MCV (mean corpuscular volume ) determinationOrdered By: Kati Burkett on 07-02-2024 MCV (RBC) [Entitic vol] 87.9 fL 81-99 [facility] Mean corpuscular hemoglobin (MCH) determinationOrdered By: Kati Burkett on 07-02-2024 MCH (RBC) [Entitic mass] 28.7 pg 27.0-32.0 [facility] [facility] Mean corpuscular hemoglobin (MCH) determination 28.7 pg 27.0-32.0 [facility] Mean corpuscular hemoglobin concentration (MCHC) determinationOrdered By: Kati Burkett on 07-02-2024 Mean corpuscular hemoglobin concentration (MCHC) determination 32.7 g/dL 32-36 [facility] Mean platelet volume determi nationOrdered By: Kati Burkett on 07-02-2024 Mean platelet volume determination 9.3 fl 6.2-12.0 [facility] Monocyte percentageOrdered B y: Kati Burkett on 07-02-2024 Monocytes/100 WBC (Bld) 6.4 % 0-10 [facility] Monocyte percentage 6.4 % 0-10 [facility] Neutrophil percentageOrdered By: Kati Brukett on 07-02-2024 Neutrophils/100 WBC (Bld) 50.2 % 47-70 [facility] Neutrophil percentage 50.2 % 47-70 [facility] Nucleated red blood cell per centageOrdered By: Kati Burkett on 07-02-2024 Nucleated red blood cell percentage 0 % 0-5 [facility] Platelet countOrdered By: Shavon Burkett on 07-02-2024 Platelets (Bld) [#/Vol] 228 10*3/uL 150-450 [facility] Platelet count 228 K/mm3 150-450 [facility] Potassium (Unsp spec) [Mass/ Vol]Ordered By: Kati Burkett on 07-02-2024 Potassium measurement (mass/volume) 4.5 mmol/L 3.3-5.1 [facility] Potassium measurement (mass/ volume)Ordered By: Kati Burkett on 07-02-2024 Potassium (Unsp spec) [Mass/Vol] 4.5 mmol/L 3.3-5.1 [facility] RBC Auto (Bld) [#/Vol]Ordere d By: Kati Burkett on 07-02-2024 RBC (Bld) [#/Vol] 4.70 10*6/uL 4.2-5.4 [facility] Automated blood erythrocyte count 4.70 M/mm3 4.2-5.4 [facility] Serum creatinine measurement (mass/volume)Ordered By: Kati Burkett on 07-02-2024 Creatinine [Mass/Vol] 1.22 mg/dL High 0.70-1.20 [facility] Serum glucose measurement (m ass/volume)Ordered By: Kati Burkett on 07-02-2024 Glucose [Mass/Vol] 129 mg/dL High 70-99 [facility] Serum or plasma calcium heather urement (mass/volume)Ordered By: Kati Burkett on 07-02-2024 Calcium [Mass/Vol] 9.8 mg/dL 7.6-11.0 [facility] Serum or plasma urea nitroge n measurement (mass/volume)Ordered By: Kati Burkett on 07-02-2024 Urea nitrogen [Mass/Vol] 18 mg/dL 06-27 [facility] Sodium levelOrdered By: Antoinette Burkett on 07-02-2024 Sodium [Moles/Vol] 140 mmol/L 133-145 [facility] Sodium level 140 mmol/L 133-145 [facility] Urea nitrogen [Mass/Vol]Orde red By: Kati Burkett on 07-02-2024 Serum or plasma urea nitrogen measurement (mass/volume) 18 mg/dL 06-27 [facility] White blood cell (WBC) count Ordered By: Kati Burkett on 07-02-2024 WBC (Bld) [#/Vol] 8.0 10*3/uL 4.4-11.0 [facility] White blood cell (WBC) count 8.0 K/mm3 4.4-11.0 [facility] Emergency Department Summary on 06-29-2024 Emergency Department Summary Normal [facility] Duplex ultrasound of carotid artery reportOrdered By: Keon France on 06-28-2024 Study report [facility] Work Phone: Carotid Duplex Ultrasoundon 06-26-2024 Carotid Duplex Ultrasound Normal [facility] 12 Lead EKGon 06-13-2024 12 Lead EKG Normal [facility] Emergency Department Summary on 06-13-2024 Emergency Department Summary Normal [facility] Scapulaon 06-13-2024 Scapula Normal [facility] Spine Thoracic without Contr ason 06-13-2024 Spine Thoracic without Contras Normal [facility] Absolute lymphocyte countOrd ered By: Kareen Bradshaw on 06-11-2024 Lymphocytes Auto (Unsp spec) [#/Vol] 3.53 10*3/uL 0.83-4.51 [facility] Absolute neutrophil countOrd ered By: Kareen Bradshaw on 06-11-2024 Absolute neutrophil count 6.1 X10^3/uL 2.0-7.7 [facility] Anion gap [Moles/Vol]Ordered By: Kareen Bradshaw on 06-11-2024 Anion gap in Serum or Plasma 12 - [facility] Anion gap in Serum or Plasma Ordered By: Kareen Bradshaw on 06-11-2024 Anion gap [Moles/Vol] 12 mmol/L 07-23 [facility] Automated lymphocyte count a s percentage of total leukocytesOrdered By: Kareen Bradshaw on 06-11-2024 Lymphocytes/100 WBC Auto (Unsp spec) 32.7 % [facility] BUN/creatinine ratioOrdered By: Kareen Bradshaw on 06-11-2024 Urea nitrogen/Creatinine [Mass ratio] 18.0 mg/mg - [facility] BUN/creatinine ratio 18.0 RATIO 10- [facility] Basic Metabolic Profile (BMP )on 06-11-2024 BUN/CRE 18.0 RATIO Normal - [facility] Comment on above: Performed By: #### L 100.0100, L501.9520, [id number], L500.2500 ####[facility] [address] [place], [address] Calcium [Mass/Vol] 9.5 mg/dL Normal 7.6-11.0 [facility] Comment on above: Performed By: #### L 100.0100, [id number], [id number], L500.2500 ####[facility] [address] [place], [address] Chloride [Moles/Vol] 107 mmol/L Normal 98-108 [facility] Comment on above: Performed By: #### L 100.0100, [id number], [id number], L500.2500 ####[facility] [address] [place], [address] CO2 [Moles/Vol] 23.2 mmol/L Normal 21.0-32.0 [facility] Comment on above: Performed By: #### L 100.0100, [id number], [id number], L500.2500 ####[facility] [address] [place], [address] Creatinine [Mass/Vol] 1.20 mg/dL Normal 0.70-1.20 [facility] Comment on above: Performed By: #### L 100.0100, [id number], [id number], L500.2500 ####[facility] [address] [place], [address] GAP 12 Normal 5-15 [facility] Comment on above: Performed By: #### L 100.0100, [id number], [id number], L500.2500 ####[facility] [address] [place], [address] GFR/1.73 sq M.predicted among non-blacks MDRD (S/P/Bld) [Vol rate/Area] 52 mL/min/{1.73_m2} Low >60 [facility] Comment on above: Result Comment: mL/m in/1.73m2 CKD-EPI Creatinine Equation (2020) Performed By: #### L 100.0100, [id number], [id number], L500.2500 ####[facility] [address] [place], [address] Glucose [Mass/Vol] 112 mg/dL High 70-99 [facility] Comment on above: Performed By: #### L 100.0100, [id number], [id number], L500.2500 ####[facility] [address] [place], [address] Potassium [Moles/Vol] 4.9 mmol/L Normal 3.3-5.1 [facility] Comment on above: Performed By: #### L 100.0100, [id number], [id number], L500.2500 ####[facility] [address] [place], [address] Sodium [Moles/Vol] 141 mmol/L Normal 133-145 [facility] Comment on above: Performed By: #### L 100.0100, [id number], [id number], L500.2500 ####[facility] [address] [place], [address] Urea nitrogen [Mass/Vol] 22 mg/dL High 4-19 [facility] Comment on above: Performed By: #### L 100.0100, [id number], [id number], L500.2500 ####[facility] [address] [place], [address] Basophil percentageOrdered B y: Kareen Bradshaw on 06-11-2024 Basophils/100 WBC (Bld) 0.5 % 0-1 [facility] Basophil percentage 0.5 % 0-1 [facility] CBC W/Diff, Automatedon 04-0 Absolute Lymph 3.53 X10 3/uL Normal 0.83-4.51 [facility] Comment on above: Performed By: #### L 100.0100, [id number], [id number], L500.2500 ####[facility] [address] [place], [address] Absolute Neut 6.1 X10 3/uL Normal 2.0-7.7 [facility] Comment on above: Performed By: #### L 100.0100, [id number], [id number], L500.2500 ####[facility] [address] [place], [address] Basophils/100 WBC (Bld) 0.5 % Normal 0-1 [facility] Comment on above: Performed By: #### L 100.0100, [id number], [id number], L500.2500 ####[facility] [address] [place], [address] Eosinophils/100 WBC (Bld) 2.8 % Normal 0-5 [facility] Comment on above: Performed By: #### L 100.0100, [id number], [id number], L500.2500 ####[facility] [address] [place], [address] Erythrocyte distribution width (RBC) [Ratio] 14.0 % Normal 11.6-14.6 [facility] Comment on above: Performed By: #### L 100.0100, [id number], [id number], L500.2500 ####[facility] [address] [place], [address] Hematocrit (Bld) [Volume fraction] 42.1 % Normal 37-47 [facility] Comment on above: Performed By: #### L 100.0100, [id number], [id number], L500.2500 ####[facility] [address] [place], [address] Hemoglobin (Bld) [Mass/Vol] 13.7 g/dL Normal 12.0-15.0 [facility] Comment on above: Performed By: #### L 100.0100, [id number], [id number], L500.2500 ####[facility] [address] [place], [address] IG% 0.600 Normal 0.0-0.9 [facility] Comment on above: Result Comment: IG% - Immature Granulocytes (promyelocytes, myelocytes andmetamyelocytes) > 1% indicates that a LEFT SHIFT is Present. Performed By: #### L 100.0100, L501.9520, L503.7505, L500.2500 ####[facility] [address] [place], [address] Lymphocytes/100 WBC (Bld) 32.7 % Normal 19-41 [facility] Comment on above: Performed By: #### L 100.0100, [id number], [id number], L500.2500 ####[facility] [address] [place], [address] MCH (RBC) [Entitic mass] 28.7 pg Normal 27.0-32.0 [facility] Comment on above: Performed By: #### L 100.0100, [id number], [id number], L500.2500 ####[facility] [address] [place], [address] MCHC (RBC) [Mass/Vol] 32.5 g/dL Normal 32-36 [facility] Comment on above: Performed By: #### L 100.0100, [id number], [id number], L500.2500 ####[facility] [address] [place], [address] MCV (RBC) [Entitic vol] 88.1 fL Normal 81-99 [facility] Comment on above: Performed By: #### L 100.0100, [id number], [id number], L500.2500 ####[facility] [address] [place], [address] Monocytes/100 WBC (Bld) 7.4 % Normal 0-10 [facility] Comment on above: Performed By: #### L 100.0100, [id number], [id number], L500.2500 ####[facility] [address] [place], [address] Neutrophils/100 WBC (Bld) 56.0 % Normal 47-70 [facility] Comment on above: Performed By: #### L 100.0100, [id number], [id number], L500.2500 ####[facility] [address] [place], [address] Nucleated RBC (Bld) [#/Vol] 0 10*3/uL Normal 0-5 [facility] Comment on above: Performed By: #### L 100.0100, [id number], [id number], L500.2500 ####[facility] [address] [place], [address] Platelet mean volume (Bld) [Entitic vol] 9.6 fL Normal 6.2-12.0 [facility] Comment on above: Performed By: #### L 100.0100, [id number], [id number], L500.2500 ####[facility] [address] [place], [address] Platelets (Bld) [#/Vol] 229 10*3/uL Normal 150-450 [facility] Comment on above: Performed By: #### L 100.0100, [id number], [id number], L500.2500 ####[facility] [address] [place], [address] RBC (Bld) [#/Vol] 4.78 10*6/uL Normal 4.2-5.4 [facility] Comment on above: Performed By: #### L 100.0100, [id number], [id number], L500.2500 ####[facility] [address] [place], [address] RDW SD 45.2 fl High 35.1-43.9 [facility] Comment on above: Performed By: #### L 100.0100, [id number], [id number], L500.2500 ####[facility] [address] [place], [address] WBC (Bld) [#/Vol] 10.8 10*3/uL Normal 4.4-11.0 [facility] Comment on above: Performed By: #### L 100.0100, [id number], [id number], L500.2500 ####[facility] [address] [place], [address] Calcium [Mass/Vol]Ordered By : Kareen Bradshaw on 06-11-2024 Serum or plasma calcium measurement (mass/volume) 9.5 mg/dL 7.6-11.0 [facility] Carbon dioxide, total [Moles /volume] in Central venous bloodOrdered By: Kareen Bradshaw on 06-11-2024 CO2 [Moles/Vol] 23.2 mmol/L 21.0-32.0 [facility] Carbon dioxide, total [Moles/volume] in Central venous blood 23.2 mmol/L 21.0-32.0 [facility] Cardiology Visit Reporton Cardiology Visit Report Normal [facility] Chloride assayOrdered By: Will Bradshaw on 06-11-2024 Chloride [Moles/Vol] 107 mmol/L 98-108 [facility] Chloride assay 107 mmol/L 98-108 [facility] Creatinine [Mass/Vol]Ordered By: Kareen Bradshaw on 06-11-2024 Serum creatinine measurement (mass/volume) 1.20 mg/dL 0.70-1.20 [facility] Eosinophil percentageOrdered By: Kareen Bradshaw on 06-11-2024 Eosinophils/100 WBC (Bld) 2.8 % 0-5 [facility] Eosinophil percentage 2.8 % 0-5 [facility] Erythrocyte distribution wid th (RBC) [Ratio]Ordered By: Kareen Bradshaw on 06-11-2024 Erythrocyte distribution width ratio 14.0 % 11.6-14.6 [facility] Erythrocyte distribution width standard deviation 45.2 fl High 35.1-43.9 [facility] Erythrocyte distribution wid th ratioOrdered By: Kareen Bradshaw on 06-11-2024 Erythrocyte distribution width (RBC) [Ratio] 14.0 % 11.6-14.6 [facility] Erythrocyte distribution wid th standard deviationOrdered By: Kareen Bradshaw on 06-11-2024 Erythrocyte distribution width (RBC) [Ratio] 45.2 fl High 35.1-43.9 [facility] GFR/1.73 sq M.predicted barak g non-blacks MDRD (S/P/Bld) [Vol rate/Area]Ordered By: Kareen Bradshaw on 06-11-2024 Glomerular filtration rate (GFR) estimation/1.73 sq m using serum, plasma, or whole b 52 Low >60 [facility] Glomerular filtration rate ( GFR) estimation/1.73 sq m using serum, plasma, or whole bOrdered By: Kareen Bradshaw on 06-11-2024 GFR/1.73 sq M.predicted among non-blacks MDRD (S/P/Bld) [Vol rate/Area] 52 mL/min/{1.73_m2} Low >60 [facility] Glucose [Mass/Vol]Ordered By : Kareen Bradshaw on 06-11-2024 Serum glucose measurement (mass/volume) 112 mg/dL High 70-99 [facility] Hematocrit Auto (Bld) [Volum e fraction]Ordered By: Kareen Bradshaw on 06-11-2024 Hematocrit (Bld) [Volume fraction] 42.1 % 37-47 [facility] Automated blood hematocrit (percentage) 42.1 % 37-47 [facility] Hemoglobin measurementOrdere d By: Kareen Bradshaw on 06-11-2024 Hemoglobin (Bld) [Mass/Vol] 13.7 g/dL 12.0-15.0 [facility] Hemoglobin measurement 13.7 g/dL 12.0-15.0 [facility] Immature granulocytes/100 WB C Auto (Bld)Ordered By: Kareen Bradshaw on 06-11-2024 Immature granulocytes/100 WBC (Bld) 0.600 % 0.0-0.9 [facility] Automated immature granulocyte percentage 0.600 % 0.0-0.9 [facility] L503.7505on 06-11-2024 Natriuretic peptide B (Bld) [Mass/Vol] 65 pg/mL Normal <=900 [facility] Comment on above: Result Comment: Hear t Failure Unlikely: < 300 pg/mLHeart Failure Likely< 50 Years: > 450 pg/mL50-75 Years: > 900 pg/mL>75 Years: > 1800 pg/mL Performed By: #### L 100.0100, L501.9520, L503.7505, L500.2500 ####[facility] [address] [place], [address] Lymphocytes Auto (Unsp spec) [#/Vol]Ordered By: Kareen Bradshaw on 06-11-2024 Absolute lymphocyte count 3.53 X10^3/uL 0.83-4.51 [facility] Lymphocytes/100 WBC Auto (Un sp spec)Ordered By: Kareen Bradshaw on 06-11-2024 Automated lymphocyte count as percentage of total leukocytes 32.7 % 19-41 [facility] MCV (RBC) [Entitic vol]Order ed By: Kareen Bradshaw on 06-11-2024 MCV (mean corpuscular volume) determination 88.1 fL 81-99 [facility] MCV (mean corpuscular volume ) determinationOrdered By: Kareen Bradshaw on 06-11-2024 MCV (RBC) [Entitic vol] 88.1 fL 81-99 [facility] Mean corpuscular hemoglobin (MCH) determinationOrdered By: Kareen Bradshaw on 06-11-2024 MCH (RBC) [Entitic mass] 28.7 pg 27.0-32.0 [facility] Mean corpuscular hemoglobin (MCH) determination 28.7 pg 27.0-32.0 [facility] Mean corpuscular hemoglobin concentration (MCHC) determinationOrdered By: Kareen Bradshaw on 06-11-2024 Mean corpuscular hemoglobin concentration (MCHC) determination 32.5 g/dL 32-36 [facility] Mean platelet volume determi nationOrdered By: Kareen Bradshaw on 06-11-2024 Mean platelet volume determination 9.6 fl 6.2-12.0 [facility] Monocyte percentageOrdered B y: Kareen Bradshaw on 06-11-2024 Monocytes/100 WBC (Bld) 7.4 % 0-10 [facility] Monocyte percentage 7.4 % 0-10 [facility] Neutrophil percentageOrdered By: Kareen Bradshaw on 06-11-2024 Neutrophils/100 WBC (Bld) 56.0 % 47-70 [facility] Neutrophil percentage 56.0 % 47-70 [facility] No Panel InformationOrdered By: Kareen Bradshaw on 06-11-2024 65 pg/mL <900 [facility] Nucleated red blood cell per centageOrdered By: Kareen Bradshaw on 06-11-2024 Nucleated red blood cell percentage 0 % 0-5 [facility] Pacemaker Checkon 06-11-2024 Pacemaker Check Normal [facility] Platelet countOrdered By: Will Bradshaw on 06-11-2024 Platelets (Bld) [#/Vol] 229 10*3/uL 150-450 [facility] Platelet count 229 K/mm3 150-450 [facility] Potassium (Unsp spec) [Mass/ Vol]Ordered By: Kareen Bradshaw on 06-11-2024 Potassium measurement (mass/volume) 4.9 mmol/L 3.3-5.1 [facility] Potassium measurement (mass/ volume)Ordered By: Kareen Bradshaw on 06-11-2024 Potassium (Unsp spec) [Mass/Vol] 4.9 mmol/L 3.3-5.1 [facility] RBC Auto (Bld) [#/Vol]Ordere d By: Kareen Bradshaw on 06-11-2024 RBC (Bld) [#/Vol] 4.78 10*6/uL 4.2-5.4 [facility] Automated blood erythrocyte count 4.78 M/mm3 4.2-5.4 [facility] Serum creatinine measurement (mass/volume)Ordered By: Kareen Bradshaw on 06-11-2024 Creatinine [Mass/Vol] 1.20 mg/dL 0.70-1.20 [facility] Serum glucose measurement (m ass/volume)Ordered By: Kareen Bradshaw on 06-11-2024 Glucose [Mass/Vol] 112 mg/dL High 70-99 [facility] Serum or plasma calcium heather urement (mass/volume)Ordered By: Kareen Bradshaw on 06-11-2024 Calcium [Mass/Vol] 9.5 mg/dL 7.6-11.0 [facility] Serum or plasma urea nitroge n measurement (mass/volume)Ordered By: Kareen Bradshaw on 06-11-2024 Urea nitrogen [Mass/Vol] 22 mg/dL High 4-19 [facility] Sodium levelOrdered By: Carina Bradshaw on 06-11-2024 Sodium [Moles/Vol] 141 mmol/L 133-145 [facility] Sodium level 141 mmol/L 133-145 [facility] TSH DL <= 0.005 mIU/L QnOrde red By: Kareen Bradshaw on 06-11-2024 TSH Qn 3.650 uIU/mL 0.300-4.200 [facility] Serum or plasma thyroid stimulating hormone (TSH) measurement by high sensitivity met 3.650 uIU/mL 0.300-4.200 [facility] Thyroid Stim Hormone (TSH)on 06-11-2024 TSH 3.650 uIU/mL Normal 0.300-4.200 [facility] Comment on above: Performed By: #### L 100.0100, L501.9520, L503.7505, L500.2500 ####[facility] [address] [place], [place], [id number] Urea nitrogen [Mass/Vol]Orde red By: Kareen Bradshaw on 06-11-2024 Serum or plasma urea nitrogen measurement (mass/volume) 22 mg/dL High 4-19 [facility] White blood cell (WBC) count Ordered By: Kareen Bradshaw on 06-11-2024 WBC (Bld) [#/Vol] 10.8 10*3/uL 4.4-11.0 [facility] White blood cell (WBC) count 10.8 K/mm3 4.4-11.0 [facility] Emergency Department Summary on 05-21-2024 Emergency Department Summary Normal [facility] Venous Duplex Imag/Sergio Extre mon 05-21-2024 Venous Duplex Imag/Sergio Extrem Normal [facility] Urine Cultureon 05-15-2024 [facility] Mixed Gram Positive Organisms [place] Count 25,000-50,000 [facility] Mixed contaminants. Submit a new specimen if indicated. Normal [facility] Comment on above: Performed By: #### M 100.2200 ####[facility] [address] [place], [place], [id number] Urinalysis, Completeon 05-13 BACTERIA 2+ /hpf Normal None Seen [facility] Comment on above: Order Comment: COLLE CTOR TO SPECIFY Performed By: #### L 400.0001 ####[facility] [address] [place], [place], [phone] EPI,SQUAMOUS 5-10 SEEN Normal 5-10 [facility] Comment on above: Order Comment: ADOLPH CTOR TO SPECIFY Performed By: #### L 400.0001 ####[facility] [address] [place], [address] RBC 0-5 SEEN Normal 0-5 [facility] Comment on above: Order Comment: ADOLPH CTOR TO SPECIFY Performed By: #### L 400.0001 ####[facility] [address] [place], [address] WBC 0-5 SEEN Normal 0-5 [facility] Comment on above: Order Comment: ADOLPH CTOR TO SPECIFY Performed By: #### L 400.0001 ####[facility] [address] [place], [address] Abdomen/Pelvis without Conto n 05-12-2024 Abdomen/Pelvis without Cont Normal [facility] Absolute lymphocyte countOrd ered By: Panda Rowe on 05-12-2024 Lymphocytes Auto (Unsp spec) [#/Vol] 4.01 10*3/uL 0.83-4.51 [facility] Absolute neutrophil countOrd ered By: Panda Rowe on 05-12-2024 Absolute neutrophil count 6.2 X10^3/uL 2.0-7.7 [facility] Anion gap [Moles/Vol]Ordered By: Panda Rowe on 05-12-2024 Anion gap in Serum or Plasma 9 5-15 [facility] Anion gap in Serum or Plasma Ordered By: Panda Rowe on 05-12-2024 Anion gap [Moles/Vol] 9 mmol/L 5-15 [facility] Automated lymphocyte count a s percentage of total leukocytesOrdered By: Panda Rowe on 05-12-2024 Lymphocytes/100 WBC Auto (Unsp spec) 35.0 % [facility] BUN/creatinine ratioOrdered By: Panda Rowe on 05-12-2024 Urea nitrogen/Creatinine [Mass ratio] 11.5 mg/mg - [facility] BUN/creatinine ratio 11.5 RATIO - [facility] Bacteria LM.HPF (Urine sed) [#/Area]Ordered By: Panda Rowe on 05-12-2024 Urine sediment bacteria count by microscopy (number/high power field) 2+ /hpf None Seen [facility] Basic Metabolic Profile (BMP )on 05-12-2024 BUN/CRE 11.5 RATIO Normal 10- [facility] Comment on above: Performed By: #### L 100.0100, L500.2500 ####[facility] [address] [place], [address] Calcium [Mass/Vol] 8.8 mg/dL Normal 7.6-11.0 [facility] Comment on above: Performed By: #### L 100.0100, L500.2500 ####[facility] [address] [place], [address] Chloride [Moles/Vol] 107 mmol/L Normal 98-108 [facility] Comment on above: Performed By: #### L 100.0100, L500.2500 ####[facility] [address] [place], [address] CO2 [Moles/Vol] 25.8 mmol/L Normal 21.0-32.0 [facility] Comment on above: Performed By: #### L 100.0100, L500.2500 ####[facility] [address] [place], [address] Creatinine [Mass/Vol] 1.59 mg/dL High 0.70-1.20 [facility] Comment on above: Performed By: #### L 100.0100, L500.2500 ####[facility] [address] [place], [address] ECRCL 44.38 ml/min Low 50-250 [facility] Comment on above: Performed By: #### L 100.0100, L500.2500 ####[facility] [address] [place], [address] GAP 9 Normal 5-15 [facility] Comment on above: Performed By: #### L 100.0100, L500.2500 ####[facility] [address] [place], [address] GFR/1.73 sq M.predicted among non-blacks MDRD (S/P/Bld) [Vol rate/Area] 37 mL/min/{1.73_m2} Low >60 [facility] Comment on above: Result Comment: mL/m in/1.73m2 CKD-EPI Creatinine Equation (2020) Performed By: #### L 100.0100, L500.2500 ####[facility] [address] [place], [address] Glucose [Mass/Vol] 103 mg/dL High 70-99 [facility] Comment on above: Performed By: #### L 100.0100, L500.2500 ####[facility] [address] [place], [address] Potassium [Moles/Vol] 4.1 mmol/L Normal 3.3-5.1 [facility] Comment on above: Performed By: #### L 100.0100, L500.2500 ####[facility] [address] [place], [address] Sodium [Moles/Vol] 141 mmol/L Normal 133-145 [facility] Comment on above: Performed By: #### L 100.0100, L500.2500 ####[facility] [address] [place], [address] Urea nitrogen [Mass/Vol] 18 mg/dL Normal 4-19 [facility] Comment on above: Performed By: #### L 100.0100, L500.2500 ####[facility] [address] [place], [address] Basophil percentageOrdered B y: Panda Rowe on 05-12-2024 Basophils/100 WBC (Bld) 0.4 % 0-1 [facility] Basophil percentage 0.4 % 0-1 [facility] Bilirubin Test strip Ql (U)O rdered By: Panda Rowe on 05-12-2024 Bilirubin Ql (U) Negative Negative [facility] CBC W/Diff, Automatedon Absolute Lymph 4.01 X10 3/uL Normal 0.83-4.51 [facility] Comment on above: Performed By: #### L 100.0100, L500.2500 ####[facility] [address] [place], [address] Absolute Neut 6.2 X10 3/uL Normal 2.0-7.7 [facility] Comment on above: Performed By: #### L 100.0100, L500.2500 ####[facility] [address] [place], [address] Basophils/100 WBC (Bld) 0.4 % Normal 0-1 [facility] Comment on above: Performed By: #### L 100.0100, L500.2500 ####[facility] [address] [place], [address] Eosinophils/100 WBC (Bld) 1.0 % Normal 0-5 [facility] Comment on above: Performed By: #### L 100.0100, L500.2500 ####[facility] [address] [place], [address] Erythrocyte distribution width (RBC) [Ratio] 14.8 % High 11.6-14.6 [facility] Comment on above: Performed By: #### L 100.0100, L500.2500 ####[facility] [address] [place], [address] Hematocrit (Bld) [Volume fraction] 37.9 % Normal 37-47 [facility] Comment on above: Performed By: #### L 100.0100, L500.2500 ####[facility] [address] [place], [address] Hemoglobin (Bld) [Mass/Vol] 12.1 g/dL Normal 12.0-15.0 [facility] Comment on above: Performed By: #### L 100.0100, L500.2500 ####[facility] [address] [place], [address] IG% 0.700 Normal 0.0-0.9 [facility] Comment on above: Result Comment: IG% - Immature Granulocytes (promyelocytes, myelocytes andmetamyelocytes) > 1% indicates that a LEFT SHIFT is Present. Performed By: #### L 100.0100, L500.2500 ####[facility] [address] [place], [address] Lymphocytes/100 WBC (Bld) 35.0 % Normal 19-41 [facility] Comment on above: Performed By: #### L 100.0100, L500.2500 ####[facility] [address] [place], [address] MCH (RBC) [Entitic mass] 29.0 pg Normal 27.0-32.0 [facility] Comment on above: Performed By: #### L 100.0100, L500.2500 ####[facility] [address] [place], [address] MCHC (RBC) [Mass/Vol] 31.9 g/dL Low 32-36 [facility] Comment on above: Performed By: #### L 100.0100, L500.2500 ####[facility] [address] [place], [address] MCV (RBC) [Entitic vol] 90.9 fL Normal 81-99 [facility] Comment on above: Performed By: #### L 100.0100, L500.2500 ####[facility] [address] [place], [address] Monocytes/100 WBC (Bld) 9.2 % Normal 0-10 [facility] Comment on above: Performed By: #### L 100.0100, L500.2500 ####[facility] [address] [place], [address] Neutrophils/100 WBC (Bld) 53.7 % Normal 47-70 [facility] Comment on above: Performed By: #### L 100.0100, L500.2500 ####[facility] [address] [place], [address] Nucleated RBC (Bld) [#/Vol] 0 10*3/uL Normal 0-5 [facility] Comment on above: Performed By: #### L 100.0100, L500.2500 ####[facility] [address] [place], [address] Platelet mean volume (Bld) [Entitic vol] 9.5 fL Normal 6.2-12.0 [facility] Comment on above: Performed By: #### L 100.0100, L500.2500 ####[facility] [address] [place], [address] Platelets (Bld) [#/Vol] 233 10*3/uL Normal 150-450 [facility] Comment on above: Performed By: #### L 100.0100, L500.2500 ####[facility] [address] [place], [address] RBC (Bld) [#/Vol] 4.17 10*6/uL Low 4.2-5.4 [facility] Comment on above: Performed By: #### L 100.0100, L500.2500 ####[facility] [address] [place], [address] RDW SD 49.1 fl High 35.1-43.9 [facility] Comment on above: Performed By: #### L 100.0100, L500.2500 ####[facility] [address] [place], [address] WBC (Bld) [#/Vol] 11.5 10*3/uL High 4.4-11.0 [facility] Comment on above: Performed By: #### L 100.0100, L500.2500 ####[facility] [address] [place], [address] Calcium [Mass/Vol]Ordered By : Panda Rowe on 05-12-2024 Serum or plasma calcium measurement (mass/volume) 8.8 mg/dL 7.6-11.0 [facility] Carbon dioxide, total [Moles /volume] in Central venous bloodOrdered By: Panda Rowe on 05-12-2024 CO2 [Moles/Vol] 25.8 mmol/L 21.0-32.0 [facility] Carbon dioxide, total [Moles/volume] in Central venous blood 25.8 mmol/L 21.0-32.0 [facility] Chloride assayOrdered By: Dora Rowe on 05-12-2024 Chloride [Moles/Vol] 107 mmol/L 98-108 [facility] Chloride assay 107 mmol/L 98-108 [facility] Clarity (U)Ordered By: Galina Rowe on 05-12-2024 Urine clarity Clear Clear [facility] Color (U)Ordered By: Panda Rowe on 05-12-2024 Urine color determination Yellow Yellow [facility] Creatinine [Mass/Vol]Ordered By: Panda Rowe on 05-12-2024 Serum creatinine measurement (mass/volume) 1.59 mg/dL High 0.70-1.20 [facility] Emergency Department Summary on 05-12-2024 Emergency Department Summary Normal [facility] Eosinophil percentageOrdered By: Panda Rowe on 05-12-2024 Eosinophils/100 WBC (Bld) 1.0 % 0-5 [facility] Eosinophil percentage 1.0 % 0-5 [facility] Epithelial cells.squamous LM Ql (Urine sed)Ordered By: Panda Rowe on 05-12-2024 Squamous epithelial cells detection in urine sediment by light microscopy 5-10 SEEN /hpf 5-10 [facility] Erythrocyte distribution wid th (RBC) [Ratio]Ordered By: Panda Rowe on 05-12-2024 Erythrocyte distribution width ratio 14.8 % High 11.6-14.6 [facility] Erythrocyte distribution wid th ratioOrdered By: Panda Rowe on 05-12-2024 Erythrocyte distribution width (RBC) [Ratio] 14.8 % High 11.6-14.6 [facility] Erythrocyte distribution wid th standard deviationOrdered By: Panda Rowe on 05-12-2024 Erythrocyte distribution width (RBC) [Ratio] 49.1 fl High 35.1-43.9 [facility] Erythrocyte distribution width standard deviation 49.1 fl High 35.1-43.9 [facility] Estimation of creatinine jennifer aranceOrdered By: Panda Rowe on 05-12-2024 Estimation of creatinine clearance 44.38 ml/min Low 50-250 [facility] GFR/1.73 sq M.predicted barak g non-blacks MDRD (S/P/Bld) [Vol rate/Area]Ordered By: Panda Rowe on 05-12-2024 Glomerular filtration rate (GFR) estimation/1.73 sq m using serum, plasma, or whole b 37 Low >60 [facility] Glomerular filtration rate ( GFR) estimation/1.73 sq m using serum, plasma, or whole bOrdered By: Panda Rowe on 05-12-2024 GFR/1.73 sq M.predicted among non-blacks MDRD (S/P/Bld) [Vol rate/Area] 37 mL/min/{1.73_m2} Low >60 [facility] Glucose [Mass/Vol]Ordered By : Panda Rowe on 05-12-2024 Serum glucose measurement (mass/volume) 103 mg/dL High 70-99 [facility] Hematocrit Auto (Bld) [Volum e fraction]Ordered By: Panda Rowe on 05-12-2024 Hematocrit (Bld) [Volume fraction] 37.9 % 37-47 [facility] Automated blood hematocrit (percentage) 37.9 % 37-47 [facility] Hemoglobin measurementOrdere d By: Panda Rowe on 05-12-2024 Hemoglobin (Bld) [Mass/Vol] 12.1 g/dL 12.0-15.0 [facility] Hemoglobin measurement 12.1 g/dL 12.0-15.0 [facility] Immature granulocytes/100 WB C Auto (Bld)Ordered By: Panda Rowe on 05-12-2024 Immature granulocytes/100 WBC (Bld) 0.700 % 0.0-0.9 [facility] Automated immature granulocyte percentage 0.700 % 0.0-0.9 [facility] Ketones Test strip Ql (U)Ord ered By: Panda Rowe on 05-12-2024 Ketones Ql (U) Negative Negative [facility] Leukocyte esterase Test stri p Ql (U)Ordered By: Panda Rowe on 05-12-2024 Urine leukocyte esterase detection by dipstick 25 /ul High Negative [facility] Lymphocytes Auto (Unsp spec) [#/Vol]Ordered By: Panda Rowe on 05-12-2024 Absolute lymphocyte count 4.01 X10^3/uL 0.83-4.51 [facility] Lymphocytes/100 WBC Auto (Un sp spec)Ordered By: Panda Rowe on 05-12-2024 Automated lymphocyte count as percentage of total leukocytes 35.0 % 19-41 [facility] MCV (RBC) [Entitic vol]Order ed By: Panda Rowe on 05-12-2024 MCV (mean corpuscular volume) determination 90.9 fL 81-99 [facility] MCV (mean corpuscular volume ) determinationOrdered By: Panda Rowe on 05-12-2024 MCV (RBC) [Entitic vol] 90.9 fL 81-99 [facility] Mean corpuscular hemoglobin (MCH) determinationOrdered By: Panda Rowe on 05-12-2024 MCH (RBC) [Entitic mass] 29.0 pg 27.0-32.0 [facility] Mean corpuscular hemoglobin (MCH) determination 29.0 pg 27.0-32.0 [facility] Mean corpuscular hemoglobin concentration (MCHC) determinationOrdered By: Panda Rowe on 05-12-2024 Mean corpuscular hemoglobin concentration (MCHC) determination 31.9 g/dL Low 32-36 [facility] Mean platelet volume determi nationOrdered By: Panda Rowe on 05-12-2024 Mean platelet volume determination 9.5 fl 6.2-12.0 [facility] Monocyte percentageOrdered B y: Panda Rowe on 05-12-2024 Monocytes/100 WBC (Bld) 9.2 % 0-10 [facility] Monocyte percentage 9.2 % 0-10 [facility] Mucus LM Ql (Urine sed)Order ed By: Panda Rowe on 05-12-2024 Mucus Ql (Urine sed) 0 SEEN /hpf [facility] Mucus detection in urine sediment by light microscopy 0 SEEN /hpf [facility] Neutrophil percentageOrdered By: Panda Rowe on 05-12-2024 Neutrophils/100 WBC (Bld) 53.7 % 47-70 [facility] Neutrophil percentage 53.7 % 47-70 [facility] Nitrite Test strip Ql (U)Ord ered By: Panda Rowe on 05-12-2024 Nitrite Ql (U) Negative Negative [facility] Nucleated red blood cell per centageOrdered By: Panda Rowe on 05-12-2024 Nucleated red blood cell percentage 0 % 0-5 [facility] Platelet countOrdered By: Dora Rowe on 05-12-2024 Platelets (Bld) [#/Vol] 233 10*3/uL 150-450 [facility] Platelet count 233 K/mm3 150-450 [facility] Potassium (Unsp spec) [Mass/ Vol]Ordered By: Panda Rowe on 05-12-2024 Potassium measurement (mass/volume) 4.1 mmol/L 3.3-5.1 [facility] Potassium measurement (mass/ volume)Ordered By: Panda Rowe on 05-12-2024 Potassium (Unsp spec) [Mass/Vol] 4.1 mmol/L 3.3-5.1 [facility] Protein Test strip Ql (U)Ord ered By: Panda Rowe on 05-12-2024 Protein Ql (U) Negative Negative [facility] RBC Auto (Bld) [#/Vol]Ordere d By: Panda Rowe on 05-12-2024 RBC (Bld) [#/Vol] 4.17 10*6/uL Low 4.2-5.4 [facility] Automated blood erythrocyte count 4.17 M/mm3 Low 4.2-5.4 [facility] Serum creatinine measurement (mass/volume)Ordered By: Panda Rowe on 05-12-2024 Creatinine [Mass/Vol] 1.59 mg/dL High 0.70-1.20 [facility] Serum glucose measurement (m ass/volume)Ordered By: Panda Rowe on 05-12-2024 Glucose [Mass/Vol] 103 mg/dL High 70-99 [facility] Serum or plasma calcium heather urement (mass/volume)Ordered By: Panda Rowe on 05-12-2024 Calcium [Mass/Vol] 8.8 mg/dL 7.6-11.0 [facility] Serum or plasma urea nitroge n measurement (mass/volume)Ordered By: Panda Rowe on 05-12-2024 Urea nitrogen [Mass/Vol] 18 mg/dL - [facility] Sodium levelOrdered By: Bob Rowe on 05-12-2024 Sodium [Moles/Vol] 141 mmol/L 133-145 [facility] Sodium level 141 mmol/L 133-145 [facility] Specific gravity (U) [Rel de nsity]Ordered By: Panda Rowe on 05-12-2024 Urine specific gravity measurement 1.010 1.002-1.030 [facility] Squamous epithelial cells de tection in urine sediment by light microscopyOrdered By: Panda Rowe on 05-12-2024 Epithelial cells.squamous LM Ql (Urine sed) 5-10 SEEN /hpf 5-10 [facility] Urea nitrogen [Mass/Vol]Orde red By: Panda Rowe on 05-12-2024 Serum or plasma urea nitrogen measurement (mass/volume) 18 mg/dL - [facility] Urinalysis, Completeon 05-12 BILIRUBIN URINE Negative Normal Negative [facility] Comment on above: Order Comment: ADOLPH HERNANDEZOR TO SPECIFY Performed By: #### L [id number] ####[facility] [address] [place], [address] Clarity (U) Clear Normal Clear [facility] Comment on above: Order Comment: ADOLPH HERNANDEZOR TO SPECIFY Performed By: #### L 400.0001 ####[facility] [address] [place], [address] Color (U) Yellow Normal Yellow [facility] Comment on above: Order Comment: ADOLPH CTOR TO SPECIFY Performed By: #### L 400.0001 ####[facility] [address] [place], [address] GLUCOSE, UR Normal Normal Normal [facility] Comment on above: Order Comment: ADOLPH CTOR TO SPECIFY Performed By: #### L 400.0001 ####[facility] [address] [place], [address] KETONE UR Negative Normal Negative [facility] Comment on above: Order Comment: ADOLPH CTOR TO SPECIFY Performed By: #### L 400.0001 ####[facility] [address] [place], [address] LEUK ESTERASE 25 /ul Abnormal Negative [facility] Comment on above: Order Comment: ADOLPH CTOR TO SPECIFY Performed By: #### L 400.0001 ####[facility] [address] [place], [address] Nitrite Ql (U) Negative Normal Negative [facility] Comment on above: Order Comment: ADOLPH CTOR TO SPECIFY Performed By: #### L 400.0001 ####[facility] [address] [place], [address] OCCULT BLOOD-UR Negative Normal Negative [facility] Comment on above: Order Comment: ADOLPH CTOR TO SPECIFY Performed By: #### L [id number] ####[facility] [address] [place], [address] pH UR 6.0 Normal 5.0 - 8.0 [facility] Comment on above: Order Comment: ADOLPH CTOR TO SPECIFY Performed By: #### L 400.0001 ####[facility] [address] [place], [address] PROT DIPSTX Negative Normal Negative [facility] Comment on above: Order Comment: ADOLPH CTOR TO SPECIFY Performed By: #### L 400.0001 ####[facility] [address] [place], [address] SP.GR. DIPSTX 1.010 Normal 1.002-1.030 [facility] Comment on above: Order Comment: ADOLPH CTOR TO SPECIFY Performed By: #### L 400.0001 ####[facility] [address] [place], [address] UROBILI Normal Normal Normal [facility] Comment on above: Order Comment: ADOLPH CTOR TO SPECIFY Performed By: #### L [id number] ####[facility] [address] [place], [address] Mucus Ql (Urine sed) 0 SEEN Normal [facility] Comment on above: Order Comment: ADOLPH CTOR TO SPECIFY Performed By: #### L [id number] ####[facility] [address] [place], [address] Urine clarityOrdered By: Leodan Rowe on 05-12-2024 Clarity (U) Clear Clear [facility] Urine color determinationOrd ered By: Panda Rowe on 05-12-2024 Color (U) Yellow Yellow [facility] Urine cultureOrdered By: Leodan Rowe on 05-12-2024 Bacteria identified Cx Nom (U) Positive Abnormal [facility] Urine culture Positive Abnormal [facility] Urine glucose detectionOrder ed By: Panda Rowe on 05-12-2024 Glucose Ql (U) Normal mg/dl Normal [facility] Urine glucose detection Normal mg/dl Normal [facility] Urine leukocyte esterase det ection by dipstickOrdered By: Panda Rowe on 05-12-2024 Leukocyte esterase Test strip Ql (U) 25 /ul High Negative [facility] Urine pHOrdered By: Panda mcgrath on 05-12-2024 pH (U) 6.0 [pH] 5.0 - 8.0 [facility] Urine sediment bacteria coun t by microscopy (number/high power field)Ordered By: Panda Rowe on 05-12-2024 Bacteria LM.HPF (Urine sed) [#/Area] 2 /[HPF] None Seen [facility] Urine specific gravity measu rementOrdered By: Panda Rowe on 05-12-2024 Specific gravity (U) [Rel density] 1.010 1.002-1.030 [facility] Urine total bilirubin detect ion by test stripOrdered By: Panda Rowe on 05-12-2024 Urine total bilirubin detection by test strip Negative Negative [facility] Urine urobilinogen measureme ntOrdered By: Panda Rowe on 05-12-2024 Urobilinogen Ql (U) Normal mg/dl Normal [facility] White blood cell (WBC) count Ordered By: Panda Rowe on 05-12-2024 WBC (Bld) [#/Vol] 11.5 10*3/uL High 4.4-11.0 [facility] White blood cell (WBC) count 11.5 K/mm3 High 4.4-11.0 [facility] White blood cell countOrdere d By: Panda Rowe on 05-12-2024 White blood cell count 0-5 SEEN /hpf 0-5 [facility] White blood cell count 0-5 SEEN /hpf 0-5 [facility] pH (U)Ordered By: Mamadou on 05-12-2024 Urine pH 6.0 5.0 - 8.0 [facility] Absolute lymphocyte countOrd ered By: Jcarlos Garcia on 05-04-2024 Lymphocytes Auto (Unsp spec) [#/Vol] 3.17 10*3/uL 0.83-4.51 [facility] Absolute neutrophil countOrd ered By: Jcarlos Garcia on 05-04-2024 Absolute neutrophil count 5.2 X10^3/uL 2.0-7.7 [facility] Automated lymphocyte count a s percentage of total leukocytesOrdered By: Jcarlos Garcia on 05-04-2024 Lymphocytes/100 WBC Auto (Unsp spec) 33.1 % 19-41 [facility] Basic Metabolic Profile (BMP )on 05-04-2024 BUN/CRE 13.6 RATIO Normal 10-20 [facility] Comment on above: Performed By: #### L 500.2500, L100.0100 ####[facility] [address] [place], [address] CA,Total 8.3 mg/dL Low 8.5-10.1 [facility] Comment on above: Performed By: #### L 500.2500, L100.0100 ####[facility] [address] [place], [address] Chloride [Moles/Vol] 118 mmol/L High 98-107 [facility] Comment on above: Performed By: #### L 500.2500, L100.0100 ####[facility] [address] [place], [address] CO2 [Moles/Vol] 23.0 mmol/L Normal 21.0-32.0 [facility] Comment on above: Performed By: #### L 500.2500, L100.0100 ####[facility] [address] [place], [address] Creatinine [Mass/Vol] 1.54 mg/dL High 0.55-1.02 [facility] Comment on above: Result Comment: The validity of the calculated GFR GFRAA in patients over70 years has not been determined. Clinical correlation isessential. Performed By: #### L 500.2500, L100.0100 ####[facility] [address] [place], [address] ECRCL 44.34 ml/min Normal [facility] Comment on above: Performed By: #### L 500.2500, L100.0100 ####[facility] [address] [place], [address] EST GFR - AA 44 mL/min Low >60 [facility] Comment on above: Result Comment: Afri can [place] GFR Calc Performed By: #### L 500.2500, L100.0100 ####[facility] [address] [place], [address] GAP 4 Low 5-15 [facility] Comment on above: Performed By: #### L 500.2500, L100.0100 ####[facility] [address] [place], [address] GFR/1.73 sq M.predicted among non-blacks MDRD (S/P/Bld) [Vol rate/Area] 37 mL/min/{1.73_m2} Low >60 [facility] Comment on above: Result Comment: Non- GFR Calc Performed By: #### L 500.2500, L100.0100 ####[facility] [address] [place], [address] Glucose [Mass/Vol] 143 mg/dL High 74-106 [facility] Comment on above: Result Comment: Fast ing Glucose result greater than or equal to 126 mg/dLsuggests DIABETES MELLITUS per A.D.A. criteria. Performed By: #### L 500.2500, L100.0100 ####[facility] [address] [place], [address] Potassium [Moles/Vol] 5.4 mmol/L High 3.5-5.1 [facility] Comment on above: Performed By: #### L 500.2500, L100.0100 ####[facility] [address] [place], [address] Sodium [Moles/Vol] 145 mmol/L Normal 136-145 [facility] Comment on above: Performed By: #### L 500.2500, L100.0100 ####[facility] [address] [place], [address] Urea nitrogen [Mass/Vol] 21 mg/dL High 7-18 [facility] Comment on above: Performed By: #### L 500.2500, L100.0100 ####[facility] [address] [place], [address] Basophil percentageOrdered B y: Jcarlos Garcia on 05-04-2024 Basophils/100 WBC (Bld) 0.2 % 0-1 [facility] Basophil percentage 0.2 % 0-5 [facility] Blood urea nitrogen (BUN)/cr eatinine ratioOrdered By: Jcarlos Garcia on 05-04-2024 Blood urea nitrogen (BUN)/creatinine ratio 13.6 RATIO 10-20 [facility] CBC W/Diff, Automatedon 04-12 Absolute Lymph 3.17 X10 3/uL Normal 0.83-4.51 [facility] Comment on above: Performed By: #### L 500.2500, L100.0100 ####[facility] [address] [place], [address] Absolute Neut 5.2 X10 3/uL Normal 2.0-7.7 [facility] Comment on above: Performed By: #### L 500.2500, L100.0100 ####[facility] [address] [place], [address] Basophils/100 WBC (Bld) 0.2 % Normal 0-1 [facility] Comment on above: Performed By: #### L 500.2500, L100.0100 ####[facility] [address] [place], [address] Eosinophils/100 WBC (Bld) 1.8 % Normal 0-5 [facility] Comment on above: Performed By: #### L 500.2500, L100.0100 ####[facility] [address] [place], [address] Erythrocyte distribution width (RBC) [Ratio] 15.4 % High 11.6-14.6 [facility] Comment on above: Performed By: #### L 500.2500, L100.0100 ####[facility] [address] [place], [address] Hematocrit (Bld) [Volume fraction] 39.4 % Normal 37-47 [facility] Comment on above: Performed By: #### L 500.2500, L100.0100 ####[facility] [address] [place], [address] Hemoglobin (Bld) [Mass/Vol] 12.1 g/dL Normal 12.0-15.0 [facility] Comment on above: Performed By: #### L 500.2500, L100.0100 ####[facility] [address] [place], [address] IG% 1.100 High 0.0-0.9 [facility] Comment on above: Result Comment: IG% - Immature Granulocytes (promyelocytes, myelocytes andmetamyelocytes) > 1% indicates that a LEFT SHIFT is Present. Performed By: #### L 500.2500, L100.0100 ####[facility] [address] [place], [address] Lymphocytes/100 WBC (Bld) 33.1 % Normal 19-41 [facility] Comment on above: Performed By: #### L 500.2500, L100.0100 ####[facility] [address] [place], [address] MCH (RBC) [Entitic mass] 28.3 pg Normal 27.0-32.0 [facility] Comment on above: Performed By: #### L 500.2500, L100.0100 ####[facility] [address] [place], [address] MCHC (RBC) [Mass/Vol] 30.7 g/dL Low 32-36 [facility] Comment on above: Performed By: #### L 500.2500, L100.0100 ####[facility] [address] [place], [address] MCV (RBC) [Entitic vol] 92.3 fL Normal 81-99 [facility] Comment on above: Performed By: #### L 500.2500, L100.0100 ####[facility] [address] [place], [address] Monocytes/100 WBC (Bld) 9.3 % Normal 0-10 [facility] Comment on above: Performed By: #### L 500.2500, L100.0100 ####[facility] [address] [place], [address] Neutrophils/100 WBC (Bld) 54.5 % Normal 47-70 [facility] Comment on above: Performed By: #### L 500.2500, L100.0100 ####[facility] [address] [place], [address] Nucleated RBC (Bld) [#/Vol] 0.2 10*3/uL Normal 0-5 [facility] Comment on above: Performed By: #### L 500.2500, L100.0100 ####[facility] [address] [place], [address] Platelet mean volume (Bld) [Entitic vol] 9.7 fL Normal 6.2-12.0 [facility] Comment on above: Performed By: #### L 500.2500, L100.0100 ####[facility] [address] [place], [address] Platelets (Bld) [#/Vol] 298 10*3/uL Normal 150-450 [facility] Comment on above: Performed By: #### L 500.2500, L100.0100 ####[facility] [address] [place], [address] RBC (Bld) [#/Vol] 4.27 10*6/uL Normal 4.2-5.4 [facility] Comment on above: Performed By: #### L 500.2500, L100.0100 ####[facility] [address] [place], [address] RDW SD 52.2 fl High 35.1-43.9 [facility] Comment on above: Performed By: #### L 500.2500, L100.0100 ####[facility] [address] [place], [address] WBC (Bld) [#/Vol] 9.6 10*3/uL Normal 4.4-11.0 [facility] Comment on above: Performed By: #### L 500.2500, L100.0100 ####[facility] [address] [place], [address] Calcium [Mass/Vol]Ordered By : Jcarlos Garcia on 05-04-2024 Serum or plasma calcium measurement (mass/volume) 8.3 mg/dL Low 8.5-10.1 [facility] Carbon dioxide measurementOr dered By: Jcarlos Garcia on 05-04-2024 CO2 [Moles/Vol] 23.0 mmol/L 21.0-32.0 [facility] Carbon dioxide measurement 23.0 mmol/L 21.0-32.0 [facility] Chloride measurementOrdered By: Jcarlos Garcia on 05-04-2024 Chloride [Moles/Vol] 118 mmol/L High 98-107 [facility] Chloride measurement 118 mmol/L High 98-107 [facility] Creatinine [Mass/Vol]Ordered By: Jcarlos Garcia on 05-04-2024 Serum or plasma creatinine measurement (mass/volume) 1.54 mg/dL High 0.55-1.02 [facility] Emergency Department Summary on 05-04-2024 Emergency Department Summary Normal [facility] Eosinophil percentageOrdered By: Jcarlos Garcia on 05-04-2024 Eosinophils/100 WBC (Bld) 1.8 % 0-5 [facility] Eosinophil percentage 1.8 % 0-5 [facility] Erythrocyte distribution wid th (RBC) [Ratio]Ordered By: Jcarlos Garcia on 05-04-2024 Erythrocyte distribution width ratio 15.4 % High 11.6-14.6 [facility] Erythrocyte distribution wid th ratioOrdered By: Jcarlos Garcia on 05-04-2024 Erythrocyte distribution width (RBC) [Ratio] 15.4 % High 11.6-14.6 [facility] Erythrocyte distribution wid th standard deviationOrdered By: Jcarlos Garcia on 05-04-2024 Erythrocyte distribution width (RBC) [Ratio] 52.2 fl High 35.1-43.9 [facility] Erythrocyte distribution width standard deviation 52.2 fl High 35.1-43.9 [facility] Estimated glomerular filtrat ion rate (GFR) AmericanOrdered By: Jcarlos Garcia on 05-04-2024 Estimated glomerular filtration rate (GFR) 44 mL/min Low >60 [facility] Estimation of creatinine jennifer aranceOrdered By: Jcarlos Garcia on 05-04-2024 Estimation of creatinine clearance 44.34 ml/min [facility] Glomerular filtration rate ( GFR) estimationOrdered By: Jcarlos Garcia on 05-04-2024 GFR/1.73 sq M.predicted among non-blacks MDRD (S/P/Bld) [Vol rate/Area] 37 mL/min/{1.73_m2} Low >60 [facility] Glomerular filtration rate (GFR) estimation 37 mL/min Low >60 [facility] Glucose measurementOrdered B y: Jcarlos Garcia on 05-04-2024 Glucose [Mass/Vol] 143 mg/dL High 74-106 [facility] Glucose measurement 143 mg/dL High 74-106 [facility] Hematocrit Auto (Bld) [Volum e fraction]Ordered By: Jcarlos Garcia on 05-04-2024 Hematocrit (Bld) [Volume fraction] 39.4 % 37-47 [facility] Automated blood hematocrit (percentage) 39.4 % 37-47 [facility] Hemoglobin measurementOrdere d By: Jcarlos Garcia on 05-04-2024 Hemoglobin (Bld) [Mass/Vol] 12.1 g/dL 12.0-15.0 [facility] Hemoglobin measurement 12.1 g/dL 12.0-15.0 [facility] Immature granulocytes/100 WB C Auto (Bld)Ordered By: Jcarlos Garcia on 05-04-2024 Immature granulocytes/100 WBC (Bld) 1.100 % High 0.0-0.9 [facility] Automated immature granulocyte percentage 1.100 % High 0.0-0.9 [facility] International normalized rat io (INR) calculationOrdered By: Jcarlos Garcia on 05-04-2024 International normalized ratio (INR) calculation 1.0 [facility] Lymphocytes Auto (Unsp spec) [#/Vol]Ordered By: Jcarlos Garcia on 05-04-2024 Absolute lymphocyte count 3.17 X10^3/uL 0.83-4.51 [facility] Lymphocytes/100 WBC Auto (Un sp spec)Ordered By: Jcarlos Garcia on 05-04-2024 Automated lymphocyte count as percentage of total leukocytes 33.1 % 19-41 [facility] MCV (RBC) [Entitic vol]Order ed By: Jcarlos Garcia on 05-04-2024 MCV (mean corpuscular volume) determination 92.3 fL 81-99 [facility] MCV (mean corpuscular volume ) determinationOrdered By: Jcarlos Garcia on 05-04-2024 MCV (RBC) [Entitic vol] 92.3 fL 81-99 [facility] Mean corpuscular hemoglobin (MCH) determinationOrdered By: Jcarlos Garcia on 05-04-2024 MCH (RBC) [Entitic mass] 28.3 pg 27.0-32.0 [facility] Mean corpuscular hemoglobin (MCH) determination 28.3 pg 27.0-32.0 [facility] Mean corpuscular hemoglobin concentration (MCHC) determinationOrdered By: Jcarlos Garcia on 05-04-2024 Mean corpuscular hemoglobin concentration (MCHC) determination 30.7 g/dL Low 32-36 [facility] Mean platelet volume determi nationOrdered By: Jcarlos Garcia on 05-04-2024 Mean platelet volume determination 9.7 fl 6.2-12.0 [facility] Monocyte percentageOrdered B y: Jcarlos Garcia on 05-04-2024 Monocytes/100 WBC (Bld) 9.3 % 0-10 [facility] Monocyte percentage 9.3 % 0-10 [facility] Neutrophil percentageOrdered By: Jcarlos Garcia on 05-04-2024 Neutrophils/100 WBC (Bld) 54.5 % 47-70 [facility] Neutrophil percentage 54.5 % 47-70 [facility] Platelet countOrdered By: Joe Garcia on 05-04-2024 Platelets (Bld) [#/Vol] 298 10*3/uL 150-450 [facility] Platelet count 298 K/mm3 150-450 [facility] Potassium measurementOrdered By: Jcarlos Garcia on 05-04-2024 Potassium [Moles/Vol] 5.4 mmol/L High 3.5-5.1 [facility] Potassium measurement 5.4 mmol/L High 3.5-5.1 [facility] Prothrombin Time w/INRon INR Coag (PPP) [Relative time] 1.0 {INR} Normal [facility] Comment on above: Performed By: #### L 300.3900 ####[facility] [address] [place], [place], [id number] PT Coag (PPP) [Time] 13.3 s Normal 11.7-14.9 [facility] Comment on above: Performed By: #### L 300.3900 ####[facility] [address] [place], [place], [phone] Prothrombin timeOrdered By: Jcarlos Garcia on 05-04-2024 PT Coag (PPP) [Time] 13.3 s 11.7-14.9 [facility] Prothrombin time 13.3 SECONDS 11.7-14.9 [facility] RBC Auto (Bld) [#/Vol]Ordere d By: Jcarlos Garcia on 05-04-2024 RBC (Bld) [#/Vol] 4.27 10*6/uL 4.2-5.4 [facility] Automated blood erythrocyte count 4.27 M/mm3 4.2-5.4 [facility] Serum anion gap measurementO rdered By: Jcarlos Garcia on 05-04-2024 Serum anion gap measurement 4 Low 5-15 [facility] Serum or plasma calcium heather urement (mass/volume)Ordered By: Jcarlos Garcia on 05-04-2024 Calcium [Mass/Vol] 8.3 mg/dL Low 8.5-10.1 [facility] Serum or plasma creatinine m easurement (mass/volume)Ordered By: Jcarlos Garcia on 05-04-2024 Creatinine [Mass/Vol] 1.54 mg/dL High 0.55-1.02 [facility] Serum or plasma urea nitroge n measurement (mass/volume)Ordered By: Jcarlos Garcia on 05-04-2024 Urea nitrogen [Mass/Vol] 21 mg/dL High 7- [facility] Sodium levelOrdered By: Jcarlos Garcia on 05-04-2024 Sodium [Moles/Vol] 145 mmol/L 136-145 [facility] Sodium level 145 mmol/L 136-145 [facility] Urea nitrogen [Mass/Vol]Orde red By: Jcarlos Garcia on 05-04-2024 Serum or plasma urea nitrogen measurement (mass/volume) 21 mg/dL High 09-25 [facility] Venous Duplex US, Unilateral on 05-04-2024 Venous Duplex US, Unilateral Normal [facility] White blood cell (WBC) count Ordered By: Jcarlos Garcia on 05-04-2024 WBC (Bld) [#/Vol] 9.6 10*3/uL 4.4-11.0 [facility] White blood cell (WBC) count 9.6 K/mm3 4.4-11.0 [facility] Absolute lymphocyte countOrd ered By: Charla Wadsworth on 04-20-2024 Lymphocytes Auto (Unsp spec) [#/Vol] 3.59 10*3/uL 0.83-4.51 [facility] Absolute neutrophil countOrd ered By: Charla Wadsworth on 04-20-2024 Absolute neutrophil count 6.1 X10^3/uL 2.0-7.7 [facility] Automated lymphocyte count a s percentage of total leukocytesOrdered By: Charla Wadsworth on 04-20-2024 Lymphocytes/100 WBC Auto (Unsp spec) 33.6 % 19-41 [facility] Bacteria LM.HPF (Urine sed) [#/Area]Ordered By: Charla Wadsworth on 04-20-2024 Urine sediment bacteria count by microscopy (number/high power field) RARE /hpf None Seen [facility] Basic Metabolic Profile (BMP )on 04-20-2024 BUN/CRE 15.6 RATIO Normal 10-20 [facility] Comment on above: Performed By: #### L 100.0100, L501.9985, L500.2500 ####[facility] [address] [place], [address] CA,Total 9.5 mg/dL Normal 8.5-10.1 [facility] Comment on above: Performed By: #### L 100.0100, L501.9985, L500.2500 ####[facility] [address] [place], [address] Chloride [Moles/Vol] 108 mmol/L High 98-107 [facility] Comment on above: Performed By: #### L 100.0100, L501.9985, L500.2500 ####[facility] [address] [place], [address] CO2 [Moles/Vol] 30.0 mmol/L Normal 21.0-32.0 [facility] Comment on above: Performed By: #### L 100.0100, L501.9985, L500.2500 ####[facility] [address] [place], [address] Creatinine [Mass/Vol] 1.09 mg/dL High 0.55-1.02 [facility] Comment on above: Result Comment: The validity of the calculated GFR GFRAA in patients over70 years has not been determined. Clinical correlation isessential. Performed By: #### L 100.0100, L501.9985, L500.2500 ####[facility] [address] [place], [address] EST GFR - AA 66 mL/min Normal >60 [facility] Comment on above: Result Comment: Afri can [place] GFR Calc Performed By: #### L 100.0100, L501.9985, L500.2500 ####[facility] [address] [place], [address] GAP 4 Low 5-15 [facility] Comment on above: Performed By: #### L 100.0100, L501.9985, L500.2500 ####[facility] [address] [place], [address] GFR/1.73 sq M.predicted among non-blacks MDRD (S/P/Bld) [Vol rate/Area] 55 mL/min/{1.73_m2} Low >60 [facility] Comment on above: Result Comment: Non- GFR Calc Performed By: #### L 100.0100, L501.9985, L500.2500 ####[facility] [address] [place], [address] Glucose [Mass/Vol] 202 mg/dL High 74-106 [facility] Comment on above: Result Comment: Gluc ose result greater than or equal to 200 mg/dLsuggests DIABETES MELLITUS per A.D.A. criteria. Performed By: #### L 100.0100, L501.9985, L500.2500 ####[facility] [address] [place], [address] Potassium [Moles/Vol] 5.5 mmol/L High 3.5-5.1 [facility] Comment on above: Performed By: #### L 100.0100, L501.9985, L500.2500 ####[facility] [address] [place], [address] Sodium [Moles/Vol] 142 mmol/L Normal 136-145 [facility] Comment on above: Performed By: #### L 100.0100, L501.9985, L500.2500 ####[facility] [address] [place], [address] Urea nitrogen [Mass/Vol] 17 mg/dL Normal 7-18 [facility] Comment on above: Performed By: #### L 100.0100, L501.9985, L500.2500 ####[facility] [address] [place], [address] Basophil percentageOrdered B y: Charla Wadsworth on 04-20-2024 Basophils/100 WBC (Bld) 0.5 % 0-1 [facility] Basophil percentage 0.5 % 0-1 [facility] Bilirubin Test strip Ql (U)O rdered By: Charla Wadsworth on 04-20-2024 Bilirubin Ql (U) Negative Negative [facility] Blood urea nitrogen (BUN)/cr eatinine ratioOrdered By: Charla Wadsworth on 04-20-2024 Blood urea nitrogen (BUN)/creatinine ratio 15.6 RATIO 10-20 [facility] CBC W/Diff, Automatedon 04-11-2024 Absolute Lymph 3.59 X10 3/uL Normal 0.83-4.51 [facility] Comment on above: Performed By: #### L 100.0100, L501.9985, L500.2500 ####[facility] [address] [place], [address] Absolute Neut 6.1 X10 3/uL Normal 2.0-7.7 [facility] Comment on above: Performed By: #### L 100.0100, L501.9985, L500.2500 ####[facility] [address] [place], [address] Basophils/100 WBC (Bld) 0.5 % Normal 0-1 [facility] Comment on above: Performed By: #### L 100.0100, L501.9985, L500.2500 ####[facility] [address] [place], [address] Eosinophils/100 WBC (Bld) 1.8 % Normal 0-5 [facility] Comment on above: Performed By: #### L 100.0100, L501.9985, L500.2500 ####[facility] [address] [place], [address] Erythrocyte distribution width (RBC) [Ratio] 14.3 % Normal 11.6-14.6 [facility] Comment on above: Performed By: #### L 100.0100, L501.9985, L500.2500 ####[facility] [address] [place], [address] Hematocrit (Bld) [Volume fraction] 43.8 % Normal 37-47 [facility] Comment on above: Performed By: #### L 100.0100, L501.9985, L500.2500 ####[facility] [address] [place], [address] Hemoglobin (Bld) [Mass/Vol] 13.8 g/dL Normal 12.0-15.0 [facility] Comment on above: Performed By: #### L 100.0100, L501.9985, L500.2500 ####[facility] [address] [place], [address] IG% 0.800 Normal 0.0-0.9 [facility] Comment on above: Result Comment: IG% - Immature Granulocytes (promyelocytes, myelocytes andmetamyelocytes) > 1% indicates that a LEFT SHIFT is Present. Performed By: #### L 100.0100, L501.9985, L500.2500 ####[facility] [address] [place], [address] Lymphocytes/100 WBC (Bld) 33.6 % Normal 19-41 [facility] Comment on above: Performed By: #### L 100.0100, L501.9985, L500.2500 ####[facility] [address] [place], [address] MCH (RBC) [Entitic mass] 28.6 pg Normal 27.0-32.0 [facility] Comment on above: Performed By: #### L 100.0100, L501.9985, L500.2500 ####[facility] [address] [place], [address] MCHC (RBC) [Mass/Vol] 31.5 g/dL Low 32-36 [facility] Comment on above: Performed By: #### L 100.0100, L501.9985, L500.2500 ####[facility] [address] [place], [address] MCV (RBC) [Entitic vol] 90.9 fL Normal 81-99 [facility] Comment on above: Performed By: #### L 100.0100, L501.9985, L500.2500 ####[facility] [address] [place], [address] Monocytes/100 WBC (Bld) 6.5 % Normal 0-10 [facility] Comment on above: Performed By: #### L 100.0100, L501.9985, L500.2500 ####[facility] [address] [place], [address] Neutrophils/100 WBC (Bld) 56.8 % Normal 47-70 [facility] Comment on above: Performed By: #### L 100.0100, L501.9985, L500.2500 ####[facility] [address] [place], [address] Nucleated RBC (Bld) [#/Vol] 0 10*3/uL Normal 0-5 [facility] Comment on above: Performed By: #### L 100.0100, L501.9985, L500.2500 ####[facility] [address] [place], [address] Platelet mean volume (Bld) [Entitic vol] 10.1 fL Normal 6.2-12.0 [facility] Comment on above: Performed By: #### L 100.0100, L501.9985, L500.2500 ####[facility] [address] [place], [address] Platelets (Bld) [#/Vol] 207 10*3/uL Normal 150-450 [facility] Comment on above: Performed By: #### L 100.0100, L501.9985, L500.2500 ####[facility] [address] [place], [address] RBC (Bld) [#/Vol] 4.82 10*6/uL Normal 4.2-5.4 [facility] Comment on above: Performed By: #### L 100.0100, L501.9985, L500.2500 ####[facility] [address] [place], [address] RDW SD 47.8 fl High 35.1-43.9 [facility] Comment on above: Performed By: #### L 100.0100, L501.9985, L500.2500 ####[facility] [address] [place], [address] WBC (Bld) [#/Vol] 10.7 10*3/uL Normal 4.4-11.0 [facility] Comment on above: Performed By: #### L 100.0100, L501.9985, L500.2500 ####[facility] [address] [place], [address] Calcium [Mass/Vol]Ordered By : Charla Wadsworth on 04-20-2024 Serum or plasma calcium measurement (mass/volume) 9.5 mg/dL 8.5-10.1 [facility] Carbon dioxide measurementOr dered By: Charla Wadsworth on 04-20-2024 CO2 [Moles/Vol] 30.0 mmol/L 21.0-32.0 [facility] Carbon dioxide measurement 30.0 mmol/L 21.0-32.0 [facility] Chloride measurementOrdered By: Charla Wadsworth on 04-20-2024 Chloride [Moles/Vol] 108 mmol/L High 98-107 [facility] Chloride measurement 108 mmol/L High 98-107 [facility] Clarity (U)Ordered By: Wilma Wadsworth on 04-20-2024 Urine clarity Clear Clear [facility] Color (U)Ordered By: Stefanie Wadsworth on 04-20-2024 Urine color determination Yellow Yellow [facility] Creatinine [Mass/Vol]Ordered By: Charla Wadsworth on 04-20-2024 Serum or plasma creatinine measurement (mass/volume) 1.09 mg/dL High 0.55-1.02 [facility] Eosinophil percentageOrdered By: Charla Wadsworth on 04-20-2024 Eosinophils/100 WBC (Bld) 1.8 % 0-5 [facility] Eosinophil percentage 1.8 % 0-5 [facility] Erythrocyte distribution wid th (RBC) [Ratio]Ordered By: Charla Wadsworth on 04-20-2024 Erythrocyte distribution width ratio 14.3 % 11.6-14.6 [facility] Erythrocyte distribution wid th ratioOrdered By: Charla Wadsworth on 04-20-2024 Erythrocyte distribution width (RBC) [Ratio] 14.3 % 11.6-14.6 [facility] Erythrocyte distribution wid th standard deviationOrdered By: Charla Wadsworth on 04-20-2024 Erythrocyte distribution width (RBC) [Ratio] 47.8 fl High 35.1-43.9 [facility] Erythrocyte distribution width standard deviation 47.8 fl High 35.1-43.9 [facility] Estimated glomerular filtrat ion rate (GFR) AmericanOrdered By: Charla Wadsworth on 04-20-2024 Estimated glomerular filtration rate (GFR) 66 mL/min >60 [facility] Glomerular filtration rate ( GFR) estimationOrdered By: Charla Wadsworth on 04-20-2024 GFR/1.73 sq M.predicted among non-blacks MDRD (S/P/Bld) [Vol rate/Area] 55 mL/min/{1.73_m2} Low >60 [facility] Glomerular filtration rate (GFR) estimation 55 mL/min Low >60 [facility] Glucose Ql (U)Ordered By: Letha Wadsworth on 02-10-2025 Urine glucose detection 50 mg/dl High Normal [facility] Glucose measurementOrdered B y: Charla Wadsworth on 04-20-2024 Glucose [Mass/Vol] 202 mg/dL High 74-106 [facility] Glucose measurement 202 mg/dL High 74-106 [facility] HbA1c (Bld) [Mass fraction]O rdered By: Charla Wadsworht on 04-20-2024 Hemoglobin A1c percentage 8.3 % High 3.8-5.6 [facility] Hematocrit Auto (Bld) [Volum e fraction]Ordered By: tyler Wadsworth on 04-20-2024 Hematocrit (Bld) [Volume fraction] 43.8 % 37-47 [facility] Automated blood hematocrit (percentage) 43.8 % 37-47 [facility] Hemoglobin A1con 04-20-2024 HbA1c (Bld) [Mass fraction] 8.3 % High 3.8-5.6 [facility] Comment on above: Result Comment: Norm al < 5.7 % Prediabetic 5.7 - 6.4 % Diabetic >or= 6.5 % Please note range changes. Performed By: #### L 100.0100, L501.9985, L500.2500 ####[facility] [address] [place], [place], [address] Hemoglobin A1c percentageOrd ered By: Charla Wadsworth on 04-20-2024 HbA1c (Bld) [Mass fraction] 8.3 % High 3.8-5.6 [facility] Hemoglobin measurementOrdere d By: Charla Aguilarnataliasusanne on 04-20-2024 Hemoglobin (Bld) [Mass/Vol] 13.8 g/dL 12.0-15.0 [facility] Hemoglobin measurement 13.8 g/dL 12.0-15.0 [facility] Hyaline casts LM.LPF (Urine sed) [#/Area]Ordered By: Reginaglendalejoselyn Aguilarnataliasusanne on 04-20-2024 Hyaline casts (Urine sed) [#/Area] 0 /[LPF] 0-5 [facility] Urine sediment hyaline cast count by microscopy (number/low power field) 0-5 SEEN /lpf 0-5 [facility] Immature granulocytes/100 WB C Auto (Bld)Ordered By: Charla Wadsworth on 04-20-2024 Immature granulocytes/100 WBC (Bld) 0.800 % 0.0-0.9 [facility] Automated immature granulocyte percentage 0.800 % 0.0-0.9 [facility] Internal Medicine Office Vis iton 04-20-2024 Internal Medicine Office Visit Normal [facility] Ketones Test strip Ql (U)Ord ered By: Charla Wdasworth on 04-20-2024 Ketones Ql (U) Negative Negative [facility] Leukocyte esterase Test stri p Ql (U)Ordered By: Charla Wadsworth on 04-20-2024 Urine leukocyte esterase detection by dipstick 25 /ul High Negative [facility] Lymphocytes Auto (Unsp spec) [#/Vol]Ordered By: Charla Wadsworth on 04-20-2024 Absolute lymphocyte count 3.59 X10^3/uL 0.83-4.51 [facility] Lymphocytes/100 WBC Auto (Un sp spec)Ordered By: Charla Wadsworth on 04-20-2024 Automated lymphocyte count as percentage of total leukocytes 33.6 % 19-41 [facility] MCV (RBC) [Entitic vol]Order ed By: Charla Wadsworth on 04-20-2024 MCV (mean corpuscular volume) determination 90.9 fL 81-99 [facility] MCV (mean corpuscular volume ) determinationOrdered By: Charla Wadsworth on 04-20-2024 MCV (RBC) [Entitic vol] 90.9 fL 81-99 [facility] Mean corpuscular hemoglobin (MCH) determinationOrdered By: Charla Wadsworth on 04-20-2024 MCH (RBC) [Entitic mass] 28.6 pg 27.0-32.0 [facility] Mean corpuscular hemoglobin (MCH) determination 28.6 pg 27.0-32.0 [facility] Mean corpuscular hemoglobin concentration (MCHC) determinationOrdered By: Charla Wadsworth on 04-20-2024 Mean corpuscular hemoglobin concentration (MCHC) determination 31.5 g/dL Low 32-36 [facility] Mean platelet volume determi nationOrdered By: Charla Wadsworth on 04-20-2024 Mean platelet volume determination 10.1 fl 6.2-12.0 [facility] Microscopic analysis of urin e for red blood cells (RBC)Ordered By: Charla Wadsworth on 04-20-2024 Microscopic analysis of urine for red blood cells (RBC) 0 SEEN /hpf [facility] Monocyte percentageOrdered B y: Charla Wadsworth on 04-20-2024 Monocytes/100 WBC (Bld) 6.5 % 0-10 [facility] Monocyte [facility] 6.5 % 0-[facility] Mucus LM Ql (Urine sed)Order ed By: Charla Wadsworth on 04-20-2024 Mucus Ql (Urine sed) 0 SEEN /hpf [facility] Neutrophil percentageOrdered By: Charla Wadsworth on 04-20-2024 Neutrophils/100 WBC (Bld) 56.8 % 47-70 [facility] Neutrophil percentage 56.8 % 47-70 [facility] Nitrite Test strip Ql (U)Ord ered By: Charla Wadsworth on 04-20-2024 Nitrite Ql (U) Negative Negative [facility] Nucleated red blood cell per centageOrdered By: Charla Wadsworth on 04-20-2024 Nucleated red blood cell percentage 0 % 0-5 [facility] Platelet countOrdered By: Letha Wadsworth on 04-20-2024 Platelets (Bld) [#/Vol] 207 10*3/uL 150-450 [facility] Platelet count 207 K/mm3 150-450 [facility] Potassium measurementOrdered By: Charla Wadsworth on 04-20-2024 Potassium [Moles/Vol] 5.5 mmol/L High 3.5-5.1 [facility] Potassium measurement 5.5 mmol/L High 3.5-5.1 [facility] Protein Test strip Ql (U)Ord ered By: Charla Wadsworth on 04-20-2024 Protein Ql (U) 15 mg/dl High Negative [facility] Urine protein assay by test strip, semi-quantitative 15 mg/dl High Negative [facility] RBC Auto (Bld) [#/Vol]Ordere d By: Charla Wadsworth on 04-20-2024 RBC (Bld) [#/Vol] 4.82 10*6/uL 4.2-5.4 [facility] Automated blood erythrocyte count 4.82 M/mm3 4.2-5.4 [facility] Serum anion gap measurementO rdered By: Charla Wadsworth on 04-20-2024 Serum anion gap measurement 4 Low 5-15 [facility] Serum or plasma calcium heather urement (mass/volume)Ordered By: Charla Wadsworth on 04-20-2024 Calcium [Mass/Vol] 9.5 mg/dL 8.5-10.1 [facility] Serum or plasma creatinine m easurement (mass/volume)Ordered By: Charla Wadsworth on 04-20-2024 Creatinine [Mass/Vol] 1.09 mg/dL High 0.55-1.02 [facility] Serum or plasma urea nitroge n measurement (mass/volume)Ordered By: Charla Wadsworth on 04-20-2024 Urea nitrogen [Mass/Vol] 17 mg/dL 7-18 [facility] Sodium levelOrdered By: Regina Wadsworth on 04-20-2024 Sodium [Moles/Vol] 142 mmol/L 136-145 [facility] Sodium level 142 mmol/L 136-145 [facility] Specific gravity (U) [Rel de nsity]Ordered By: Charla Wadsworth on 04-20-2024 Urine specific gravity measurement 1.020 1.002-1.030 [facility] Squamous epithelial cells de tection in urine sediment by light microscopyOrdered By: Charla Wadsworth on 04-20-2024 Epithelial cells.squamous LM Ql (Urine sed) 0-5 SEEN /hpf 5-10 [facility] Transitional cells detection in urine sediment by light microscopyOrdered By: Charla Wadsworth on 04-20-2024 Transitional cells LM Ql (Urine sed) 0-5 SEEN /hpf 0-5 [facility] Urea nitrogen [Mass/Vol]Orde red By: Charla Wadsworth on 04-20-2024 Serum or plasma urea nitrogen measurement (mass/volume) 17 mg/dL 7-18 [facility] Urinalysis, Completeon 04-20 BACTERIA RARE Normal None Seen [facility] Comment on above: Order Comment: ADOLPH CTOR TO SPECIFY Performed By: #### L 400.0001 ####[facility] [address] [place], [address] CAST,HYALINE 0-5 SEEN Normal 0-5 [facility] Comment on above: Order Comment: ADOLPH CTOR TO SPECIFY Performed By: #### L 400.0001 ####[facility] [address] [place], [address] EPI,SQUAMOUS 0-5 SEEN Normal 5-10 [facility] Comment on above: Order Comment: ADOLPH CTOR TO SPECIFY Performed By: #### L 400.0001 ####[facility] [address] [place], [address] EPI,TRANSITION 0-5 SEEN Normal 0-5 [facility] Comment on above: Order Comment: ADOLPH CTOR TO SPECIFY Performed By: #### L 400.0001 ####[facility] [address] [place], [address] RBC 0 SEEN Normal 0-5 [facility] Comment on above: Order Comment: ADOLPH CTOR TO SPECIFY Performed By: #### L 400.0001 ####[facility] [address] [place], [address] WBC 0-5 SEEN Normal 0-5 [facility] Comment on above: Order Comment: ADOLPH CTOR TO SPECIFY Performed By: #### L 400.0001 ####[facility] [address] [place], [address] Mucus Ql (Urine sed) 0 SEEN Normal [facility] Comment on above: Order Comment: ADOLPH CTOR TO SPECIFY Performed By: #### L 400.0001 ####[facility] [address] [place], [address] Urine clarityOrdered By: Ozzy Wadsworth on 04-20-2024 Clarity (U) Clear Clear [facility] Urine color determinationOrd ered By: Charla Wadsworth on 04-20-2024 Color (U) Yellow Yellow [facility] Urine glucose detectionOrder ed By: Charla Wadsworth on 04-20-2024 Glucose Ql (U) 50 mg/dl High Normal [facility] Urine leukocyte esterase det ection by dipstickOrdered By: Charla Wadsworth on 04-20-2024 Leukocyte esterase Test strip Ql (U) 25 /ul High Negative [facility] Urine pHOrdered By: Maximilian Wadsworth on 04-20-2024 pH (U) 6.0 [pH] 5.0 - 8.0 [facility] Urine sediment bacteria coun t by microscopy (number/high power field)Ordered By: Charla Wadsworth on 04-20-2024 Bacteria LM.HPF (Urine sed) [#/Area] RARE /hpf None Seen [facility] Urine specific gravity measu rementOrdered By: Charla Wadsworth on 04-20-2024 Specific gravity (U) [Rel density] 1.020 1.002-1.030 [facility] Urine total bilirubin detect ion by test stripOrdered By: Charla Wadsworth on 04-20-2024 Urine total bilirubin detection by test strip Negative Negative [facility] Urine urobilinogen measureme ntOrdered By: Charla Wadsworth on 04-20-2024 Urobilinogen Ql (U) 1 mg/dl High Normal [facility] Urobilinogen Ql (U)Ordered B y: Charla Wadsworth on 04-20-2024 Urine urobilinogen measurement 1 mg/dl High Normal [facility] White blood cell (WBC) count Ordered By: Charla Wadsworth on 04-20-2024 WBC (Bld) [#/Vol] 10.7 10*3/uL 4.4-11.0 [facility] White blood cell (WBC) count 10.7 K/mm3 4.4-11.0 [facility] White blood cell countOrdere d By: Charla Wadsworth on 04-20-2024 White blood cell count 0-5 SEEN /hpf 0-5 [facility] White blood cell count 0-5 SEEN /hpf 0-5 [facility] pH (U)Ordered By: Charla Wadsworth on 04-20-2024 Urine pH 6.0 5.0 - 8.0 [facility] Emergency Department Summary on 04-15-2024 Emergency Department Summary Normal [facility] Basic Metabolic Profile (BMP )on 04-07-2024 BUN Normal 7-18 [facility] Comment on above: Result Comment: Canc elled via OM: Order cancelled - Patient discharged Performed By: #### L 500.2500, L100.0100 ####[facility] [address] [place], [address] BUN/CRE Normal 10-20 [facility] Comment on above: Result Comment: Canc elled via OM: Order cancelled - Patient discharged Performed By: #### L 500.2500, L100.0100 ####[facility] [address] [place], [address] CA,Total Normal 8.5-10.1 [facility] Comment on above: Result Comment: Canc elled via OM: Order cancelled - Patient discharged Performed By: #### L 500.2500, L100.0100 ####[facility] [address] [place], [address] CL Normal 98-107 [facility] Comment on above: Result Comment: Canc elled via OM: Order cancelled - Patient discharged Performed By: #### L 500.2500, L100.0100 ####[facility] [address] [place], [address] CO2 Normal 21.0-32.0 [facility] Comment on above: Result Comment: Canc elled via OM: Order cancelled - Patient discharged Performed By: #### L 500.2500, L100.0100 ####[facility] [address] [place], [address] CREAT,SERUM Normal 0.55-1.02 [facility] Comment on above: Result Comment: Canc elled via OM: Order cancelled - Patient discharged Performed By: #### L 500.2500, L100.0100 ####[facility] [address] [place], [address] EST GFR Normal >60 [facility] Comment on above: Result Comment: Canc elled via OM: Order cancelled - Patient discharged Performed By: #### L 500.2500, L100.0100 ####[facility] [address] [place], [address] EST GFR - AA Normal >60 [facility] Comment on above: Result Comment: Canc elled via OM: Order cancelled - Patient discharged Performed By: #### L 500.2500, L100.0100 ####[facility] [address] [place], [address] GAP Normal 5-15 [facility] Comment on above: Result Comment: Canc elled via OM: Order cancelled - Patient discharged Performed By: #### L 500.2500, L100.0100 ####[facility] [address] [place], [address] GLU Normal 74-106 [facility] Comment on above: Result Comment: Canc elled via OM: Order cancelled - Patient discharged Performed By: #### L 500.2500, L100.0100 ####[facility] [address] [place], [address] Potassium Normal 3.5-5.1 [facility] Comment on above: Result Comment: Canc elled via OM: Order cancelled - Patient discharged Performed By: #### L 500.2500, L100.0100 ####[facility] [address] [place], [address] Basic Metabolic Profile (BMP) Normal 136-145 [facility] Comment on above: Result Comment: Canc elled via OM: Order cancelled - Patient discharged Performed By: #### L 500.2500, L100.0100 ####[facility] [address] [place], [address] CBC W/Diff, Automatedon 03-12 Absolute Neut Normal 2.0-7.7 [facility] Comment on above: Result Comment: Canc elled via OM: Order cancelled - Patient discharged Performed By: #### L 500.2500, L100.0100 ####[facility] [address] [place], [address] HCT Normal 37-47 [facility] Comment on above: Result Comment: Canc elled via OM: Order cancelled - Patient discharged Performed By: #### L 500.2500, L100.0100 ####[facility] [address] [place], [address] HGB Normal 12.0-15.0 [facility] Comment on above: Result Comment: Canc elled via OM: Order cancelled - Patient discharged Performed By: #### L 500.2500, L100.0100 ####[facility] [address] [place], [address] MCH Normal 27.0-32.0 [facility] Comment on above: Result Comment: Canc elled via OM: Order cancelled - Patient discharged Performed By: #### L 500.2500, L100.0100 ####[facility] [address] [place], [address] MCHC Normal 32-36 [facility] Comment on above: Result Comment: Canc elled via OM: Order cancelled - Patient discharged Performed By: #### L 500.2500, L100.0100 ####[facility] [address] [place], [address] MCV Normal 81-99 [facility] Comment on above: Result Comment: Canc elled via OM: Order cancelled - Patient discharged Performed By: #### L 500.2500, L100.0100 ####[facility] [address] [place], [address] NEUT% Normal 47-70 [facility] Comment on above: Result Comment: Canc elled via OM: Order cancelled - Patient discharged Performed By: #### L 500.2500, L100.0100 ####[facility] [address] [place], [address] PLT Normal 150-450 [facility] Comment on above: Result Comment: Canc elled via OM: Order cancelled - Patient discharged Performed By: #### L 500.2500, L100.0100 ####[facility] [address] [place], [address] RBC Normal 4.2-5.4 [facility] Comment on above: Result Comment: Canc elled via OM: Order cancelled - Patient discharged Performed By: #### L 500.2500, L100.0100 ####[facility] [address] [place], [address] RDW CV Normal 11.6-14.6 [facility] Comment on above: Result Comment: Canc elled via OM: Order cancelled - Patient discharged Performed By: #### L 500.2500, L100.0100 ####[facility] [address] [place], [address] RDW SD Normal 35.1-43.9 [facility] Comment on above: Result Comment: Canc elled via OM: Order cancelled - Patient discharged Performed By: #### L 500.2500, L100.0100 ####[facility] [address] [place], [address] WBC Normal 4.4-11.0 [facility] Comment on above: Result Comment: Canc elled via OM: Order cancelled - Patient discharged Performed By: #### L 500.2500, L100.0100 ####[facility] [address] [place], [address] Basic Metabolic Profile (BMP )on 04-06-2024 BUN Normal 7-18 [facility] Comment on above: Result Comment: Canc elled via OM: Order cancelled - Patient discharged Performed By: #### L 100.0100, L500.2500 ####[facility] [address] [place], [address] BUN/CRE Normal 10-20 [facility] Comment on above: Result Comment: Canc elled via OM: Order cancelled - Patient discharged Performed By: #### L 100.0100, L500.2500 ####[facility] [address] [place], [address] CA,Total Normal 8.5-10.1 [facility] Comment on above: Result Comment: Canc elled via OM: Order cancelled - Patient discharged Performed By: #### L 100.0100, L500.2500 ####[facility] [address] [place], [address] CL Normal 98-107 [facility] Comment on above: Result Comment: Canc elled via OM: Order cancelled - Patient discharged Performed By: #### L 100.0100, L500.2500 ####[facility] [address] [place], [address] CO2 Normal 21.0-32.0 [facility] Comment on above: Result Comment: Canc elled via OM: Order cancelled - Patient discharged Performed By: #### L 100.0100, L500.2500 ####[facility] [address] [place], [address] CREAT,SERUM Normal 0.55-1.02 [facility] Comment on above: Result Comment: Canc elled via OM: Order cancelled - Patient discharged Performed By: #### L 100.0100, L500.2500 ####[facility] [address] [place], [address] EST GFR Normal >60 [facility] Comment on above: Result Comment: Canc elled via OM: Order cancelled - Patient discharged Performed By: #### L 100.0100, L500.2500 ####[facility] [address] [place], [address] EST GFR - AA Normal >60 [facility] Comment on above: Result Comment: Canc elled via OM: Order cancelled - Patient discharged Performed By: #### L 100.0100, L500.2500 ####[facility] [address] [place], [address] GAP Normal 5-15 [facility] Comment on above: Result Comment: Canc elled via OM: Order cancelled - Patient discharged Performed By: #### L 100.0100, L500.2500 ####[facility] [address] [place], [address] GLU Normal 74-106 [facility] Comment on above: Result Comment: Canc elled via OM: Order cancelled - Patient discharged Performed By: #### L 100.0100, L500.2500 ####[facility] [address] [place], [address] Potassium Normal 3.5-5.1 [facility] Comment on above: Result Comment: Canc elled via OM: Order cancelled - Patient discharged Performed By: #### L 100.0100, L500.2500 ####[facility] [address] [place], [address] Basic Metabolic Profile (BMP) Normal 136-145 [facility] Comment on above: Result Comment: Canc elled via OM: Order cancelled - Patient discharged Performed By: #### L 100.0100, L500.2500 ####[facility] [address] [place], [address] CBC W/Diff, Automatedon 01-2 Absolute Neut Normal 2.0-7.7 [facility] Comment on above: Result Comment: Canc elled via OM: Order cancelled - Patient discharged Performed By: #### L 100.0100, L500.2500 ####[facility] [address] [place], [address] HCT Normal 37-47 [facility] Comment on above: Result Comment: Canc elled via OM: Order cancelled - Patient discharged Performed By: #### L 100.0100, L500.2500 ####[facility] [address] [place], [address] HGB Normal 12.0-15.0 [facility] Comment on above: Result Comment: Canc elled via OM: Order cancelled - Patient discharged Performed By: #### L 100.0100, L500.2500 ####[facility] [address] [place], [address] MCH Normal 27.0-32.0 [facility] Comment on above: Result Comment: Canc elled via OM: Order cancelled - Patient discharged Performed By: #### L 100.0100, L500.2500 ####[facility] [address] [place], [address] MCHC Normal 32-36 [facility] Comment on above: Result Comment: Canc elled via OM: Order cancelled - Patient discharged Performed By: #### L 100.0100, L500.2500 ####[facility] [address] [place], [address] MCV Normal 81-99 [facility] Comment on above: Result Comment: Canc elled via OM: Order cancelled - Patient discharged Performed By: #### L 100.0100, L500.2500 ####[facility] [address] [place], [address] NEUT% Normal 47-70 [facility] Comment on above: Result Comment: Canc elled via OM: Order cancelled - Patient discharged Performed By: #### L 100.0100, L500.2500 ####[facility] [address] [place], [address] PLT Normal 150-450 [facility] Comment on above: Result Comment: Canc elled via OM: Order cancelled - Patient discharged Performed By: #### L 100.0100, L500.2500 ####[facility] [address] [place], [address] RBC Normal 4.2-5.4 [facility] Comment on above: Result Comment: Canc elled via OM: Order cancelled - Patient discharged Performed By: #### L 100.0100, L500.2500 ####[facility] [address] [place], [address] RDW CV Normal 11.6-14.6 [facility] Comment on above: Result Comment: Canc elled via OM: Order cancelled - Patient discharged Performed By: #### L 100.0100, L500.2500 ####[facility] [address] [place], [address] RDW SD Normal 35.1-43.9 [facility] Comment on above: Result Comment: Canc elled via OM: Order cancelled - Patient discharged Performed By: #### L 100.0100, L500.2500 ####[facility] [address] [place], [address] WBC Normal 4.4-11.0 [facility] Comment on above: Result Comment: Canc elled via OM: Order cancelled - Patient discharged Performed By: #### L 100.0100, L500.2500 ####[facility] [address] [place], [address] Absolute lymphocyte countOrd ered By: Autumn Gorman on 04-05-2024 Lymphocytes Auto (Unsp spec) [#/Vol] 1.85 10*3/uL 0.83-4.51 [facility] Absolute neutrophil countOrd ered By: Autumn Brooksraulsusanne on 04-05-2024 Absolute neutrophil count 15.0 X10^3/uL High 2.0-7.7 [facility] Automated lymphocyte count a s percentage of total leukocytesOrdered By: Autumn Toddcurtis on 04-05-2024 Lymphocytes/100 WBC Auto (Unsp spec) 10.5 % Low 19-41 [facility] Basic Metabolic Profile (BMP )on 04-05-2024 BUN/CRE 24.8 RATIO High 10-20 [facility] Comment on above: Performed By: #### L 501.5200, L500.2500, L100.0100, L501.2300 ####[facility] [address] [place], [address] CA,Total 10.1 mg/dL Normal 8.5-10.1 [facility] Comment on above: Performed By: #### L 501.5200, L500.2500, L100.0100, L501.2300 ####[facility] [address] [place], [address] Chloride [Moles/Vol] 107 mmol/L Normal 98-107 [facility] Comment on above: Performed By: #### L 501.5200, L500.2500, L100.0100, L501.2300 ####[facility] [address] [place], [address] CO2 [Moles/Vol] 27.0 mmol/L Normal 21.0-32.0 [facility] Comment on above: Performed By: #### L 501.5200, L500.2500, L100.0100, L501.2300 ####[facility] [address] [place], [address] Creatinine [Mass/Vol] 1.25 mg/dL High 0.55-1.02 [facility] Comment on above: Result Comment: The validity of the calculated GFR GFRAA in patients over70 years has not been determined. Clinical correlation isessential. Performed By: #### L 501.5200, L500.2500, L100.0100, L501.2300 ####[facility] [address] [place], [address] ECRCL 54.75 ml/min Normal [facility] Comment on above: Performed By: #### L 501.5200, L500.2500, L100.0100, L501.2300 ####[facility] [address] [place], [address] EST GFR - AA 57 mL/min Low >60 [facility] Comment on above: Result Comment: Afri can [place] GFR Calc Performed By: #### L 501.5200, L500.2500, L100.0100, L501.2300 ####[facility] [address] [place], [address] GAP 4 Low 5-15 [facility] Comment on above: Performed By: #### L 501.5200, L500.2500, L100.0100, L501.2300 ####[facility] [address] [place], [address] GFR/1.73 sq M.predicted among non-blacks MDRD (S/P/Bld) [Vol rate/Area] 47 mL/min/{1.73_m2} Low >60 [facility] Comment on above: Result Comment: Non- GFR Calc Performed By: #### L 501.5200, L500.2500, L100.0100, L501.2300 ####[facility] [address] [place], [address] Glucose [Mass/Vol] 286 mg/dL High 74-106 [facility] Comment on above: Result Comment: Gluc ose result greater than or equal to 200 mg/dLsuggests DIABETES MELLITUS per A.D.A. criteria. Performed By: #### L 501.5200, L500.2500, L100.0100, L501.2300 ####[facility] [address] [place], [address] Potassium [Moles/Vol] 4.8 mmol/L Normal 3.5-5.1 [facility] Comment on above: Performed By: #### L 501.5200, L500.2500, L100.0100, L501.2300 ####[facility] [address] [place], [address] Sodium [Moles/Vol] 138 mmol/L Normal 136-145 [facility] Comment on above: Performed By: #### L 501.5200, L500.2500, L100.0100, L501.2300 ####[facility] [address] [place], [address] Urea nitrogen [Mass/Vol] 31 mg/dL High 7-18 [facility] Comment on above: Performed By: #### L 501.5200, L500.2500, L100.0100, L501.2300 ####[facility] [address] [place], [address] Basophil percentageOrdered B y: Autumn Gorman on 04-05-2024 Basophils/100 WBC (Bld) 0.1 % 0-1 [facility] Basophil percentage 0.1 % 0-1 [facility] Blood urea nitrogen (BUN)/cr eatinine ratioOrdered By: Autumn Gorman on 04-05-2024 Blood urea nitrogen (BUN)/creatinine ratio 24.8 RATIO High 10-20 [facility] CBC W/Diff, Automatedon - Absolute Lymph 1.85 X10 3/uL Normal 0.83-4.51 [facility] Comment on above: Performed By: #### L 501.5200, L500.2500, L100.0100, L501.2300 ####[facility] [address] [place], [address] Absolute Neut 15.0 X10 3/uL High 2.0-7.7 [facility] Comment on above: Performed By: #### L 501.5200, L500.2500, L100.0100, L501.2300 ####[facility] [address] [place], [address] Basophils/100 WBC (Bld) 0.1 % Normal 0-1 [facility] Comment on above: Performed By: #### L 501.5200, L500.2500, L100.0100, L501.2300 ####[facility] [address] [place], [address] Eosinophils/100 WBC (Bld) 0.0 % Normal 0-5 [facility] Comment on above: Performed By: #### L 501.5200, L500.2500, L100.0100, L501.2300 ####[facility] [address] [place], [address] Erythrocyte distribution width (RBC) [Ratio] 13.8 % Normal 11.6-14.6 [facility] Comment on above: Performed By: #### L 501.5200, L500.2500, L100.0100, L501.2300 ####[facility] [address] [place], [address] Hematocrit (Bld) [Volume fraction] 42.8 % Normal 37-47 [facility] Comment on above: Performed By: #### L 501.5200, L500.2500, L100.0100, L501.2300 ####[facility] [address] [place], [address] Hemoglobin (Bld) [Mass/Vol] 13.4 g/dL Normal 12.0-15.0 [facility] Comment on above: Performed By: #### L 501.5200, L500.2500, L100.0100, L501.2300 ####[facility] [address] [place], [address] IG% 0.700 Normal 0.0-0.9 [facility] Comment on above: Result Comment: IG% - Immature Granulocytes (promyelocytes, myelocytes andmetamyelocytes) > 1% indicates that a LEFT SHIFT is Present. Performed By: #### L 501.5200, L500.2500, L100.0100, L501.2300 ####[facility] [address] [place], [address] Lymphocytes/100 WBC (Bld) 10.5 % Low 19-41 [facility] Comment on above: Performed By: #### L 501.5200, L500.2500, L100.0100, L501.2300 ####[facility] [address] [place], [address] MCH (RBC) [Entitic mass] 27.8 pg Normal 27.0-32.0 [facility] Comment on above: Performed By: #### L 501.5200, L500.2500, L100.0100, L501.2300 ####[facility] [address] [place], [address] MCHC (RBC) [Mass/Vol] 31.3 g/dL Low 32-36 [facility] Comment on above: Performed By: #### L 501.5200, L500.2500, L100.0100, L501.2300 ####[facility] [address] [place], [address] MCV (RBC) [Entitic vol] 88.8 fL Normal 81-99 [facility] Comment on above: Performed By: #### L 501.5200, L500.2500, L100.0100, L501.2300 ####[facility] [address] [place], [address] Monocytes/100 WBC (Bld) 2.9 % Normal 0-10 [facility] Comment on above: Performed By: #### L 501.5200, L500.2500, L100.0100, L501.2300 ####[facility] [address] [place], [address] Neutrophils/100 WBC (Bld) 85.8 % High 47-70 [facility] Comment on above: Performed By: #### L 501.5200, L500.2500, L100.0100, L501.2300 ####[facility] [address] [place], [address] Nucleated RBC (Bld) [#/Vol] 0 10*3/uL Normal 0-5 [facility] Comment on above: Performed By: #### L 501.5200, L500.2500, L100.0100, L501.2300 ####[facility] [address] [place], [address] Platelet mean volume (Bld) [Entitic vol] 9.8 fL Normal 6.2-12.0 [facility] Comment on above: Performed By: #### L 501.5200, L500.2500, L100.0100, L501.2300 ####[facility] [address] [place], [address] Platelets (Bld) [#/Vol] 221 10*3/uL Normal 150-450 [facility] Comment on above: Performed By: #### L 501.5200, L500.2500, L100.0100, L501.2300 ####[facility] [address] [place], [address] RBC (Bld) [#/Vol] 4.82 10*6/uL Normal 4.2-5.4 [facility] Comment on above: Performed By: #### L 501.5200, L500.2500, L100.0100, L501.2300 ####[facility] [address] [place], [address] RDW SD 45.0 fl High 35.1-43.9 [facility] Comment on above: Performed By: #### L 501.5200, L500.2500, L100.0100, L501.2300 ####[facility] [address] [place], [address] WBC (Bld) [#/Vol] 17.5 10*3/uL High 4.4-11.0 [facility] Comment on above: Performed By: #### L 501.5200, L500.2500, L100.0100, L501.2300 ####[facility] [address] [place], [address] Calcium [Mass/Vol]Ordered By : Autumn Gorman on 04-05-2024 Serum or plasma calcium measurement (mass/volume) 10.1 mg/dL 8.5-10.1 [facility] Carbon dioxide measurementOr dered By: Autumn Gorman on 04-05-2024 CO2 [Moles/Vol] 27.0 mmol/L 21.0-32.0 [facility] Carbon dioxide measurement 27.0 mmol/L 21.0-32.0 [facility] Chloride measurementOrdered By: Autumn Gorman on 04-05-2024 Chloride [Moles/Vol] 107 mmol/L 98-107 [facility] Chloride measurement 107 mmol/L 98-107 [facility] Creatinine [Mass/Vol]Ordered By: Autumn Gorman on 04-05-2024 Serum or plasma creatinine measurement (mass/volume) 1.25 mg/dL High 0.55-1.02 [facility] Eosinophil percentageOrdered By: Autumn Gorman on 04-05-2024 Eosinophils/100 WBC (Bld) 0.0 % 0-5 [facility] Eosinophil percentage 0.0 % 0-5 [facility] Erythrocyte distribution wid th (RBC) [Ratio]Ordered By: Autumn Gorman on 04-05-2024 Erythrocyte distribution width ratio 13.8 % 11.6-14.6 [facility] Erythrocyte distribution wid th ratioOrdered By: Autumn Gorman on 04-05-2024 Erythrocyte distribution width (RBC) [Ratio] 13.8 % 11.6-14.6 [facility] Erythrocyte distribution wid th standard deviationOrdered By: Autumn Gorman on 04-05-2024 Erythrocyte distribution width (RBC) [Ratio] 45.0 fl High 35.1-43.9 [facility] Erythrocyte distribution width standard deviation 45.0 fl High 35.1-43.9 [facility] Estimated glomerular filtrat ion rate (GFR) AmericanOrdered By: Autumn Gorman on 04-05-2024 Estimated glomerular filtration rate (GFR) 57 mL/min Low >60 [facility] Estimation of creatinine jennifer aranceOrdered By: Autumn Gorman on 04-05-2024 Estimation of creatinine clearance 54.75 ml/min [facility] Glomerular filtration rate ( GFR) estimationOrdered By: Autumn Gorman on 04-05-2024 GFR/1.73 sq M.predicted among non-blacks MDRD (S/P/Bld) [Vol rate/Area] 47 mL/min/{1.73_m2} Low >60 [facility] Glomerular filtration rate (GFR) estimation 47 mL/min Low >60 [facility] Glucose measurementOrdered B y: Autumn Gorman on 04-05-2024 Glucose [Mass/Vol] 286 mg/dL High 74-106 [facility] Glucose measurement 286 mg/dL High 74-106 [facility] Hematocrit Auto (Bld) [Volum e fraction]Ordered By: Autumn Gorman on 04-05-2024 Hematocrit (Bld) [Volume fraction] 42.8 % 37-47 [facility] Automated blood hematocrit (percentage) 42.8 % 37-47 [facility] Hemoglobin measurementOrdere d By: Autumn Gorman on 04-05-2024 Hemoglobin (Bld) [Mass/Vol] 13.4 g/dL 12.0-15.0 [facility] Hemoglobin measurement 13.4 g/dL 12.0-15.0 [facility] Immature granulocytes/100 WB C Auto (Bld)Ordered By: Autumn Gorman on 04-05-2024 Immature granulocytes/100 WBC (Bld) 0.700 % 0.0-0.9 [facility] Automated immature granulocyte percentage 0.700 % 0.0-0.9 [facility] Lymphocytes Auto (Unsp spec) [#/Vol]Ordered By: Autumn Gorman on 04-05-2024 Absolute lymphocyte count 1.85 X10^3/uL 0.83-4.51 [facility] Lymphocytes/100 WBC Auto (Un sp spec)Ordered By: Autumn Gorman on 04-05-2024 Automated lymphocyte count as percentage of total leukocytes 10.5 % Low 19-41 [facility] MCV (RBC) [Entitic vol]Order ed By: Autumn Gorman on 04-05-2024 MCV (mean corpuscular volume) determination 88.8 fL 81-99 [facility] MCV (mean corpuscular volume ) determinationOrdered By: Autumn Gorman on 04-05-2024 MCV (RBC) [Entitic vol] 88.8 fL 81-99 [facility] Magnesiumon 04-05-2024 Magnesium [Mass/Vol] 2.3 mg/dL Normal 1.6-2.6 [facility] Comment on above: Performed By: #### L 501.5200, L500.2500, L100.0100, L501.2300 ####[facility] [address] [place], [address] Magnesium measurementOrdered By: Autumn Gorman on 04-05-2024 Magnesium [Mass/Vol] 2.3 mg/dL 1.6-2.6 [facility] Magnesium measurement 2.3 mg/dL 1.6-2.6 [facility] Mean corpuscular hemoglobin (MCH) determinationOrdered By: Autumn Gorman on 04-05-2024 MCH (RBC) [Entitic mass] 27.8 pg 27.0-32.0 [facility] Mean corpuscular hemoglobin (MCH) determination 27.8 pg 27.0-32.0 [facility] Mean corpuscular hemoglobin concentration (MCHC) determinationOrdered By: Autumn Gorman on 04-05-2024 Mean corpuscular hemoglobin concentration (MCHC) determination 31.3 g/dL Low 32-36 [facility] Mean platelet volume determi nationOrdered By: Autumn Gorman on 04-05-2024 Mean platelet volume determination 9.8 fl 6.2-12.0 [facility] Monocyte percentageOrdered B y: Autumn Gorman on 04-05-2024 Monocytes/100 WBC (Bld) 2.9 % 0-10 [facility] Monocyte percentage 2.9 % 0-10 [facility] Neutrophil percentageOrdered By: Autumn Gorman on 04-05-2024 Neutrophils/100 WBC (Bld) 85.8 % High 47-70 [facility] Neutrophil percentage 85.8 % High 47-70 [facility] Nucleated red blood cell per centageOrdered By: Autumn Gorman on 04-05-2024 Nucleated red blood cell percentage 0 % 0-5 [facility] Phosphoruson 04-05-2024 Phosphate [Mass/Vol] 3.3 mg/dL Normal 2.5-4.9 [facility] Comment on above: Performed By: #### L 501.5200, L500.2500, L100.0100, L501.2300 ####[facility] [address] [place], [address] Phosphorus measurementOrdere d By: Autumn Gorman on 04-05-2024 Phosphorus measurement 3.3 mg/dL 2.5-4.9 [facility] Platelet countOrdered By: Fred Gorman on 04-05-2024 Platelets (Bld) [#/Vol] 221 10*3/uL 150-450 [facility] Platelet count 221 K/mm3 150-450 [facility] Potassium measurementOrdered By: Autumn Gorman on 04-05-2024 Potassium [Moles/Vol] 4.8 mmol/L 3.5-5.1 [facility] Potassium measurement 4.8 mmol/L 3.5-5.1 [facility] RBC Auto (Bld) [#/Vol]Ordere d By: Autumn Gorman on 04-05-2024 RBC (Bld) [#/Vol] 4.82 10*6/uL 4.2-5.4 [facility] Automated blood erythrocyte count 4.82 M/mm3 4.2-5.4 [facility] Serum anion gap measurementO rdered By: Autumn Gorman on 04-05-2024 Serum anion gap measurement 4 Low 5-15 [facility] Serum or plasma calcium heather urement (mass/volume)Ordered By: Autumn Gorman on 04-05-2024 Calcium [Mass/Vol] 10.1 mg/dL 8.5-10.1 [facility] Serum or plasma creatinine m easurement (mass/volume)Ordered By: Autumn Gorman on 04-05-2024 Creatinine [Mass/Vol] 1.25 mg/dL High 0.55-1.02 [facility] Serum or plasma urea nitroge n measurement (mass/volume)Ordered By: Autumn Gorman on 04-05-2024 Urea nitrogen [Mass/Vol] 31 mg/dL High 7-18 [facility] Sodium levelOrdered By: Anthony Gorman on 04-05-2024 Sodium [Moles/Vol] 138 mmol/L 136-145 [facility] Sodium level 138 mmol/L 136-145 [facility] Urea nitrogen [Mass/Vol]Orde red By: Autumn Gorman on 04-05-2024 Serum or plasma urea nitrogen measurement (mass/volume) 31 mg/dL High 7-18 [facility] White blood cell (WBC) count Ordered By: Autumn Gorman on 04-05-2024 WBC (Bld) [#/Vol] 17.5 10*3/uL High 4.4-11.0 [facility] White blood cell (WBC) count 17.5 K/mm3 High 4.4-11.0 [facility] Basic Metabolic Profile (BMP )on 04-04-2024 BUN/CRE 14.8 RATIO Normal 10-20 [facility] Comment on above: Performed By: #### L 877.0530, L100.0100, L500.2500 ####[facility] [address] [place], [address] CA,Total 9.6 mg/dL Normal 8.5-10.1 [facility] Comment on above: Performed By: #### L 501.9520, L100.0100, L500.2500 ####[facility] [address] [place], [address] Chloride [Moles/Vol] 106 mmol/L Normal 98-107 [facility] Comment on above: Performed By: #### L 501.9520, L100.0100, L500.2500 ####[facility] [address] [place], [address] CO2 [Moles/Vol] 22.0 mmol/L Normal 21.0-32.0 [facility] Comment on above: Performed By: #### L 501.9520, L100.0100, L500.2500 ####[facility] [address] [place], [address] Creatinine [Mass/Vol] 1.28 mg/dL High 0.55-1.02 [facility] Comment on above: Result Comment: The validity of the calculated GFR GFRAA in patients over70 years has not been determined. Clinical correlation isessential. Performed By: #### L 501.9520, L100.0100, L500.2500 ####[facility] [address] [place], [address] ECRCL 53.47 ml/min Normal [facility] Comment on above: Performed By: #### L 501.9520, L100.0100, L500.2500 ####[facility] [address] [place], [address] EST GFR - AA 55 mL/min Low >60 [facility] Comment on above: Result Comment: Afri can [place] GFR Calc Performed By: #### L 501.9520, L100.0100, L500.2500 ####[facility] [address] [place], [address] GAP 9 Normal 5-15 [facility] Comment on above: Performed By: #### L 501.9520, L100.0100, L500.2500 ####[facility] [address] [place], [address] GFR/1.73 sq M.predicted among non-blacks MDRD (S/P/Bld) [Vol rate/Area] 45 mL/min/{1.73_m2} Low >60 [facility] Comment on above: Result Comment: Non- GFR Calc Performed By: #### L 501.9520, L100.0100, L500.2500 ####[facility] [address] [place], [address] Glucose [Mass/Vol] 264 mg/dL High 74-106 [facility] Comment on above: Result Comment: Gluc ose result greater than or equal to 200 mg/dLsuggests DIABETES MELLITUS per A.D.A. criteria. Performed By: #### L 501.9520, L100.0100, L500.2500 ####[facility] [address] [place], [address] Potassium [Moles/Vol] 4.7 mmol/L Normal 3.5-5.1 [facility] Comment on above: Performed By: #### L 501.9520, L100.0100, L500.2500 ####[facility] [address] [place], [address] Sodium [Moles/Vol] 136 mmol/L Normal 136-145 [facility] Comment on above: Performed By: #### L 501.9520, L100.0100, L500.2500 ####[facility] [address] [place], [address] Urea nitrogen [Mass/Vol] 19 mg/dL High 7-18 [facility] Comment on above: Performed By: #### L 501.9520, L100.0100, L500.2500 ####[facility] [address] [place], [address] CBC W/Diff, Automatedon 03-12 Absolute Lymph 1.49 X10 3/uL Normal 0.83-4.51 [facility] Comment on above: Performed By: #### L 501.9520, L100.0100, L500.2500 ####[facility] [address] [place], [address] Absolute Neut 6.2 X10 3/uL Normal 2.0-7.7 [facility] Comment on above: Performed By: #### L 501.9520, L100.0100, L500.2500 ####[facility] [address] [place], [address] Basophils/100 WBC (Bld) 0.3 % Normal 0-1 [facility] Comment on above: Performed By: #### L 501.9520, L100.0100, L500.2500 ####[facility] [address] [place], [address] Eosinophils/100 WBC (Bld) 0.1 % Normal 0-5 [facility] Comment on above: Performed By: #### L 501.9520, L100.0100, L500.2500 ####[facility] [address] [place], [address] Erythrocyte distribution width (RBC) [Ratio] 13.5 % Normal 11.6-14.6 [facility] Comment on above: Performed By: #### L 501.9520, L100.0100, L500.2500 ####[facility] [address] [place], [address] Hematocrit (Bld) [Volume fraction] 41.8 % Normal 37-47 [facility] Comment on above: Performed By: #### L 501.9520, L100.0100, L500.2500 ####[facility] [address] [place], [address] Hemoglobin (Bld) [Mass/Vol] 13.6 g/dL Normal 12.0-15.0 [facility] Comment on above: Performed By: #### L 501.9520, L100.0100, L500.2500 ####[facility] [address] [place], [address] IG% 0.800 Normal 0.0-0.9 [facility] Comment on above: Result Comment: IG% - Immature Granulocytes (promyelocytes, myelocytes andmetamyelocytes) > 1% indicates that a LEFT SHIFT is Present. Performed By: #### L 501.9520, L100.0100, L500.2500 ####[facility] [address] [place], [address] Lymphocytes/100 WBC (Bld) 18.7 % Low 19-41 [facility] Comment on above: Performed By: #### L 501.9520, L100.0100, L500.2500 ####[facility] [address] [place], [address] MCH (RBC) [Entitic mass] 28.4 pg Normal 27.0-32.0 [facility] Comment on above: Performed By: #### L 501.9520, L100.0100, L500.2500 ####[facility] [address] [place], [address] MCHC (RBC) [Mass/Vol] 32.5 g/dL Normal 32-36 [facility] Comment on above: Performed By: #### L 501.9520, L100.0100, L500.2500 ####[facility] [address] [place], [address] MCV (RBC) [Entitic vol] 87.3 fL Normal 81-99 [facility] Comment on above: Performed By: #### L 501.9520, L100.0100, L500.2500 ####[facility] [address] [place], [address] Monocytes/100 WBC (Bld) 2.4 % Normal 0-10 [facility] Comment on above: Performed By: #### L 501.9520, L100.0100, L500.2500 ####[facility] [address] [place], [address] Neutrophils/100 WBC (Bld) 77.7 % High 47-70 [facility] Comment on above: Performed By: #### L 501.9520, L100.0100, L500.2500 ####[facility] [address] [place], [address] Nucleated RBC (Bld) [#/Vol] 0 10*3/uL Normal 0-5 [facility] Comment on above: Performed By: #### L 501.9520, L100.0100, L500.2500 ####[facility] [address] [place], [address] Platelet mean volume (Bld) [Entitic vol] 9.4 fL Normal 6.2-12.0 [facility] Comment on above: Performed By: #### L 501.9520, L100.0100, L500.2500 ####[facility] [address] [place], [address] Platelets (Bld) [#/Vol] 202 10*3/uL Normal 150-450 [facility] Comment on above: Performed By: #### L 501.9520, L100.0100, L500.2500 ####[facility] [address] [place], [address] RBC (Bld) [#/Vol] 4.79 10*6/uL Normal 4.2-5.4 [facility] Comment on above: Performed By: #### L 501.9520, L100.0100, L500.2500 ####[facility] [address] [place], [address] RDW SD 42.9 fl Normal 35.1-43.9 [facility] Comment on above: Performed By: #### L 501.9520, L100.0100, L500.2500 ####[facility] [address] [place], [address] WBC (Bld) [#/Vol] 8.0 10*3/uL Normal 4.4-11.0 [facility] Comment on above: Performed By: #### L 501.9520, L100.0100, L500.2500 ####[facility] [address] [place], [address] Serum or plasma thyroid stim ulating hormone (TSH) measurement (units/volume)Ordered By: Tita Winn on 04-04-2024 TSH Qn 0.692 uIU/mL 0.358-3.740 [facility] TSH QnOrdered By: Tita alfaro on 04-04-2024 Serum or plasma thyroid stimulating hormone (TSH) measurement (units/volume) 0.692 uIU/mL 0.358-3.740 [facility] Thyroid Stim Hormone (TSH)on 04-04-2024 TSH 0.692 uIU/mL Normal 0.358-3.740 [facility] Comment on above: Performed By: #### L 501.9520, L100.0100, L500.2500 ####[facility] [address] [place], [address] 12 Lead EKGon 04-03-2024 12 Lead EKG Normal [facility] Base excess Calc (BldV) [Mol es/Vol]Ordered By: Tita Winn on 04-03-2024 Blood base excess determination 1 mmol/L -2-2 [facility] Basic Metabolic Profile (BMP )on 04-03-2024 BUN/CRE 12.9 RATIO Normal 10-20 [facility] Comment on above: Performed By: #### L 100.0100, L500.2500 ####[facility] [address] [place], [address] CA,Total 9.3 mg/dL Normal 8.5-10.1 [facility] Comment on above: Performed By: #### L 100.0100, L500.2500 ####[facility] [address] [place], [address] Chloride [Moles/Vol] 105 mmol/L Normal 98-107 [facility] Comment on above: Performed By: #### L 100.0100, L500.2500 ####[facility] [address] [place], [address] CO2 [Moles/Vol] 27.0 mmol/L Normal 21.0-32.0 [facility] Comment on above: Performed By: #### L 100.0100, L500.2500 ####[facility] [address] [place], [address] Creatinine [Mass/Vol] 1.32 mg/dL High 0.55-1.02 [facility] Comment on above: Result Comment: The validity of the calculated GFR GFRAA in patients over70 years has not been determined. Clinical correlation isessential. Performed By: #### L 100.0100, L500.2500 ####[facility] [address] [place], [address] ECRCL 53.55 ml/min Normal [facility] Comment on above: Performed By: #### L 100.0100, L500.2500 ####[facility] [address] [place], [address] EST GFR - AA 53 mL/min Low >60 [facility] Comment on above: Result Comment: Afri can [place] GFR Calc Performed By: #### L 100.0100, L500.2500 ####[facility] [address] [place], [address] GAP 5 Normal 5-15 [facility] Comment on above: Performed By: #### L 100.0100, L500.2500 ####[facility] [address] [place], [address] GFR/1.73 sq M.predicted among non-blacks MDRD (S/P/Bld) [Vol rate/Area] 44 mL/min/{1.73_m2} Low >60 [facility] Comment on above: Result Comment: Non- GFR Calc Performed By: #### L 100.0100, L500.2500 ####[facility] [address] [place], [address] Glucose [Mass/Vol] 155 mg/dL High 74-106 [facility] Comment on above: Result Comment: Fast ing Glucose result greater than or equal to 126 mg/dLsuggests DIABETES MELLITUS per A.D.A. criteria. Performed By: #### L 100.0100, L500.2500 ####[facility] [address] [place], [address] Potassium [Moles/Vol] 4.4 mmol/L Normal 3.5-5.1 [facility] Comment on above: Performed By: #### L 100.0100, L500.2500 ####[facility] [address] [place], [address] Sodium [Moles/Vol] 137 mmol/L Normal 136-145 [facility] Comment on above: Performed By: #### L 100.0100, L500.2500 ####[facility] [address] [place], [address] Urea nitrogen [Mass/Vol] 17 mg/dL Normal 7-18 [facility] Comment on above: Performed By: #### L 100.0100, L500.2500 ####[facility] [address] [place], [address] Blood Gases by [facility] 025 Base excess Calc (Bld) [Moles/Vol] 1 mmol/L Normal -2 to +2 [facility] Comment on above: Performed By: #### L 9000.0800 ####[facility] [address] [place], [address] Blood Gas Type ART [facility] Comment on above: Performed By: #### L 9000.0800 ####[facility] [address] [place], [address] CO2 [Moles/Vol] 28 mmol/L Normal [facility] Comment on above: Performed By: #### L 9000.0800 ####[facility] [address] [place], [address] FI02 2.0 Normal [facility] Comment on above: Performed By: #### L 9000.0800 ####[facility] [address] [place], [address] HCO3 (Bld) [Moles/Vol] 26.6 mmol/L High 22-26 [facility] Comment on above: Performed By: #### L 9000.0800 ####[facility] [address] [place], [address] Mode Not entered Normal [facility] Comment on above: Performed By: #### L 9000.0800 ####[facility] [address] [place], [address] O2 Delivery Dev Cannula Normal [facility] Comment on above: Performed By: #### L 9000.0800 ####[facility] [address] [place], [address] pCO2 48.6 mmHg High 35-45 [facility] Comment on above: Performed By: #### L 9000.0800 ####[facility] [address] [place], [address] pH (Bld) 7.35 [pH] Normal 7.35-7.45 [facility] Comment on above: Performed By: #### L 9000.0800 ####[facility] [address] [place], [address] PO2 74 mmHG Low 75-100 [facility] Comment on above: Performed By: #### L 9000.0800 ####[facility] [address] [place], [address] SITE Not entered Normal [facility] Comment on above: Performed By: #### L 9000.0800 ####[facility] [address] [place], [address] SO2 94 Low 95-99 [facility] Comment on above: Performed By: #### L 9000.0800 ####[facility] [address] [place], [address] Blood base excess determinat ionOrdered By: Tita Winn on 04-03-2024 Base excess Calc (BldV) [Moles/Vol] 1 mmol/L -2-2 [facility] Blood bicarbonate measuremen tOrdered By: Tita Winn on 04-03-2024 HCO3 (Bld) [Moles/Vol] 26.6 mmol/L High 22-26 [facility] Blood bicarbonate measurement 26.6 mmol/L High 22-26 [facility] CBC W/Diff, Automatedon 03-12 Absolute Lymph 2.94 X10 3/uL Normal 0.83-4.51 [facility] Comment on above: Performed By: #### L 100.0100, L500.2500 ####[facility] [address] [place], [address] Absolute Neut 3.9 X10 3/uL Normal 2.0-7.7 [facility] Comment on above: Performed By: #### L 100.0100, L500.2500 ####[facility] [address] [place], [address] Basophils/100 WBC (Bld) 0.5 % Normal 0-1 [facility] Comment on above: Performed By: #### L 100.0100, L500.2500 ####[facility] [address] [place], [address] Eosinophils/100 WBC (Bld) 3.3 % Normal 0-5 [facility] Comment on above: Performed By: #### L 100.0100, L500.2500 ####[facility] [address] [place], [address] Erythrocyte distribution width (RBC) [Ratio] 13.9 % Normal 11.6-14.6 [facility] Comment on above: Performed By: #### L 100.0100, L500.2500 ####[facility] [address] [place], [address] Hematocrit (Bld) [Volume fraction] 42.3 % Normal 37-47 [facility] Comment on above: Performed By: #### L 100.0100, L500.2500 ####[facility] [address] [place], [address] Hemoglobin (Bld) [Mass/Vol] 13.5 g/dL Normal 12.0-15.0 [facility] Comment on above: Performed By: #### L 100.0100, L500.2500 ####[facility] [address] [place], [address] IG% 0.900 Normal 0.0-0.9 [facility] Comment on above: Result Comment: IG% - Immature Granulocytes (promyelocytes, myelocytes andmetamyelocytes) > 1% indicates that a LEFT SHIFT is Present. Performed By: #### L 100.0100, L500.2500 ####[facility] [address] [place], [address] Lymphocytes/100 WBC (Bld) 37.8 % Normal 19-41 [facility] Comment on above: Performed By: #### L 100.0100, L500.2500 ####[facility] [address] [place], [address] MCH (RBC) [Entitic mass] 28.3 pg Normal 27.0-32.0 [facility] Comment on above: Performed By: #### L 100.0100, L500.2500 ####[facility] [address] [place], [address] MCHC (RBC) [Mass/Vol] 31.9 g/dL Low 32-36 [facility] Comment on above: Performed By: #### L 100.0100, L500.2500 ####[facility] [address] [place], [address] MCV (RBC) [Entitic vol] 88.7 fL Normal 81-99 [facility] Comment on above: Performed By: #### L 100.0100, L500.2500 ####[facility] [address] [place], [address] Monocytes/100 WBC (Bld) 8.0 % Normal 0-10 [facility] Comment on above: Performed By: #### L 100.0100, L500.2500 ####[facility] [address] [place], [address] Neutrophils/100 WBC (Bld) 49.5 % Normal 47-70 [facility] Comment on above: Performed By: #### L 100.0100, L500.2500 ####[facility] [address] [place], [address] Nucleated RBC (Bld) [#/Vol] 0 10*3/uL Normal 0-5 [facility] Comment on above: Performed By: #### L 100.0100, L500.2500 ####[facility] [address] [place], [address] Platelet mean volume (Bld) [Entitic vol] 9.9 fL Normal 6.2-12.0 [facility] Comment on above: Performed By: #### L 100.0100, L500.2500 ####[facility] [address] [place], [address] Platelets (Bld) [#/Vol] 211 10*3/uL Normal 150-450 [facility] Comment on above: Performed By: #### L 100.0100, L500.2500 ####[facility] [address] [place], [address] RBC (Bld) [#/Vol] 4.77 10*6/uL Normal 4.2-5.4 [facility] Comment on above: Performed By: #### L 100.0100, L500.2500 ####[facility] [address] [place], [address] RDW SD 45.1 fl High 35.1-43.9 [facility] Comment on above: Performed By: #### L 100.0100, L500.2500 ####[facility] [address] [place], [address] WBC (Bld) [#/Vol] 7.8 10*3/uL Normal 4.4-11.0 [facility] Comment on above: Performed By: #### L 100.0100, L500.2500 ####[facility] [address] [place], [address] Chest PA and Lateralon 04-03 Chest PA and Lateral Normal [facility] Determination of fraction of inspired oxygenOrdered By: Tita Winn on 04-03-2024 Determination of fraction of inspired oxygen 2.0 [facility] Emergency Department Summary on 04-03-2024 Emergency Department Summary Normal [facility] H AND P Exam - Hospitaliston 04-03-2024 H&P Exam - Hospitalist Normal [facility] Influenza virus A and B and SARS-CoV-2 (COVID-19) and Respiratory syncytial virus RNAOrdered By: Jcarlos Garcia on 04-03-2024 SARS-CoV-2 (COVID-19) RNA BEAU+probe Ql (Unsp spec) [facility] M100.678on 04-03-2024 M100.678 Pending SARS-CoV-2 (COVID 19) Negative INFLUENZA A Negative INFLUENZA B Negative RSV PCR Negative Normal [facility] Comment on above: Performed By: #### M 100.678 ####[facility] [address] [facility] [place], [place], [id number] Measurement, pHOrdered By: Rhoda Winn on 04-03-2024 pH (Unsp spec) 7.35 [pH] 7.35-7.45 [facility] No Panel InformationOrdered By: iTta Winn on 04-03-2024 ART [facility] Not entered [facility] Cannula [facility] Oxygen saturation measuremen tOrdered By: Tita Winn on 04-03-2024 Oxygen saturation measurement 94 % Low 95-99 [facility] Partial pressure of carbon d ioxide measurementOrdered By: Tita Winn on 04-03-2024 Partial pressure of carbon dioxide measurement 48.6 mmHg High 35-45 [facility] Partial pressure of oxygen m easurementOrdered By: Tita Winn on 04-03-2024 Partial pressure of oxygen measurement 74 mmHG Low 75-100 [facility] RESPIRATORY PANEL MOLECULARo n 04-03-2024 RP PANEL Normal [facility] Comment on above: Performed By: #### M 100.638 ####[facility] [address] [facility]. [place], [place], [phone] Respiratory pathogens DNA an d RNA panel BEAU+probe (Resp)Ordered By: Tita Winn on 04-03-2024 Respiratory pathogens detection panel by molecular detection method Parainfluenza 3 Abnormal [facility] Respiratory pathogens detect ion panel by molecular detection methodOrdered By: Tita Winn on 04-03-2024 Respiratory pathogens DNA and RNA panel BEAU+probe (Resp) Parainfluenza 3 Abnormal [facility] Total carbon dioxide measure mentOrdered By: Tita Winn on 04-03-2024 CO2 [Moles/Vol] 28 mmol/L [facility] Total carbon dioxide measurement 28 mmol/L [facility] pH (Unsp spec)Ordered By: Joe Winn on 04-03-2024 Measurement, pH 7.35 7.35-7.45 [facility] Abdomen WITH IV Contraston 1 04-22-2023 Abdomen WITH IV Contrast Normal [facility] CREATININE FINGERSTICKon Creatinine [Mass/Vol] 1.3 mg/dL High 0.55-1.02 [facility] Comment on above: Performed By: #### L 9100.0200 ####[facility] [address] [place], [place], [id number] GFR/1.73 sq M.predicted among non-blacks MDRD (S/P/Bld) [Vol rate/Area] 44.0000 mL/min/{1.73_m2} Low >60 [facility] Comment on above: Performed By: #### L 9100.0200 ####[facility] [address] [place], [place], [address] Creatinine measurement at be dsideOrdered By: Alan Mack on 02-20-2024 Creatinine measurement at bedside 1.3 mg/dL High 0.55-1.02 [facility] EGFROrdered By: Alan mercado on 02-20-2024 EGFR 44.0000 mL/min Low >60 [facility] Internal Medicine Office Vis iton 01-27-2024 Internal Medicine Office Visit Normal [facility] 12 Lead EKGon 01-10-2024 12 Lead EKG Normal [facility] 12 Lead EKG Normal [facility] BNP,B-Type NATRIURETIC PEPTI Audra 01-10-2024 Natriuretic peptide B (Bld) [Mass/Vol] 39.7 pg/mL Normal 0-100 [facility] Comment on above: Performed By: #### L 503.6620 ####[facility] [address] [place], [place], [id number] Basic Metabolic Profile (BMP )on 01-10-2024 BUN/CRE 15.7 RATIO Normal 10-20 [facility] Comment on above: Order Comment: 1Y Performed By: #### L 500.2500, L501.5425, L100.0100 ####[facility] [address] [place], [address] CA,Total 9.2 mg/dL Normal 8.5-10.1 [facility] Comment on above: Order Comment: 1Y Performed By: #### L 500.2500, L501.5425, L100.0100 ####[facility] [address] [place], [address] Chloride [Moles/Vol] 106 mmol/L Normal 98-107 [facility] Comment on above: Order Comment: 1Y Performed By: #### L 500.2500, L501.5425, L100.0100 ####[facility] [address] [place], [address] CO2 [Moles/Vol] 26.0 mmol/L Normal 21.0-32.0 [facility] Comment on above: Order Comment: 1Y Performed By: #### L 500.2500, L501.5425, L100.0100 ####[facility] [address] [place], [address] Creatinine [Mass/Vol] 1.40 mg/dL High 0.55-1.02 [facility] Comment on above: Order Comment: 1Y Result Comment: The validity of the calculated GFR GFRAA in patients over70 years has not been determined. Clinical correlation isessential. Performed By: #### L 500.2500, L501.5425, L100.0100 ####[facility] [address] [place], [address] ECRCL 49.39 ml/min Normal [facility] Comment on above: Order Comment: 1Y Performed By: #### L 500.2500, L501.5425, L100.0100 ####[facility] [address] [place], [address] EST GFR - AA 50 mL/min Low >60 [facility] Comment on above: Order Comment: 1Y Result Comment: Afri can [place] GFR Calc Performed By: #### L 500.2500, L501.5425, L100.0100 ####[facility] [address] [place], [address] GAP 6 Normal 5-15 [facility] Comment on above: Order Comment: 1Y Performed By: #### L 500.2500, L501.5425, L100.0100 ####[facility] [address] [place], [address] GFR/1.73 sq M.predicted among non-blacks MDRD (S/P/Bld) [Vol rate/Area] 41 mL/min/{1.73_m2} Low >60 [facility] Comment on above: Order Comment: 1Y Result Comment: Non- GFR Calc Performed By: #### L 500.2500, L501.5425, L100.0100 ####[facility] [address] [place], [address] Glucose [Mass/Vol] 221 mg/dL High 74-106 [facility] Comment on above: Order Comment: 1Y Result Comment: Gluc ose result greater than or equal to 200 mg/dLsuggests DIABETES MELLITUS per A.D.A. criteria. Performed By: #### L 500.2500, L501.5425, L100.0100 ####[facility] [address] [place], [address] Potassium [Moles/Vol] 3.7 mmol/L Normal 3.5-5.1 [facility] Comment on above: Order Comment: 1Y Performed By: #### L 500.2500, L501.5425, L100.0100 ####[facility] [address] [place], [address] Sodium [Moles/Vol] 139 mmol/L Normal 136-145 [facility] Comment on above: Order Comment: 1Y Performed By: #### L 500.2500, L501.5425, L100.0100 ####[facility] [address] [place], [address] Urea nitrogen [Mass/Vol] 22 mg/dL High 7-18 [facility] Comment on above: Order Comment: 1Y Performed By: #### L 500.2500, L501.5425, L100.0100 ####[facility] [address] [place], [address] CBC W/Diff, Automatedon 11-0 -2023 Absolute Lymph 4.09 X10 3/uL Normal 0.83-4.51 [facility] Comment on above: Performed By: #### L 500.2500, L501.5425, L100.0100 ####[facility] [address] [place], [address] Absolute Neut 7.0 X10 3/uL Normal 2.0-7.7 [facility] Comment on above: Performed By: #### L 500.2500, L501.5425, L100.0100 ####[facility] [address] [place], [address] Basophils/100 WBC (Bld) 0.5 % Normal 0-1 [facility] Comment on above: Performed By: #### L 500.2500, L501.5425, L100.0100 ####[facility] [address] [place], [address] Eosinophils/100 WBC (Bld) 2.2 % Normal 0-5 [facility] Comment on above: Performed By: #### L 500.2500, L501.5425, L100.0100 ####[facility] [address] [place], [address] Erythrocyte distribution width (RBC) [Ratio] 13.7 % Normal 11.6-14.6 [facility] Comment on above: Performed By: #### L 500.2500, L501.5425, L100.0100 ####[facility] [address] [place], [address] Hematocrit (Bld) [Volume fraction] 38.8 % Normal 37-47 [facility] Comment on above: Performed By: #### L 500.2500, L501.5425, L100.0100 ####[facility] [address] [place], [address] Hemoglobin (Bld) [Mass/Vol] 12.7 g/dL Normal 12.0-15.0 [facility] Comment on above: Performed By: #### L 500.2500, L501.5425, L100.0100 ####[facility] [address] [place], [address] IG% 0.800 Normal 0.0-0.9 [facility] Comment on above: Result Comment: IG% - Immature Granulocytes (promyelocytes, myelocytes andmetamyelocytes) > 1% indicates that a LEFT SHIFT is Present. Performed By: #### L 500.2500, L501.5425, L100.0100 ####[facility] [address] [place], [address] Lymphocytes/100 WBC (Bld) 33.7 % Normal 19-41 [facility] Comment on above: Performed By: #### L 500.2500, L501.5425, L100.0100 ####[facility] [address] [place], [address] MCH (RBC) [Entitic mass] 29.1 pg Normal 27.0-32.0 [facility] Comment on above: Performed By: #### L 500.2500, L501.5425, L100.0100 ####[facility] [address] [place], [address] MCHC (RBC) [Mass/Vol] 32.7 g/dL Normal 32-36 [facility] Comment on above: Performed By: #### L 500.2500, L501.5425, L100.0100 ####[facility] [address] [place], [address] MCV (RBC) [Entitic vol] 89.0 fL Normal 81-99 [facility] Comment on above: Performed By: #### L 500.2500, L501.5425, L100.0100 ####[facility] [address] [place], [address] Monocytes/100 WBC (Bld) 5.2 % Normal 0-10 [facility] Comment on above: Performed By: #### L 500.2500, L501.5425, L100.0100 ####[facility] [address] [place], [address] Neutrophils/100 WBC (Bld) 57.6 % Normal 47-70 [facility] Comment on above: Performed By: #### L 500.2500, L501.5425, L100.0100 ####[facility] [address] [place], [address] Nucleated RBC (Bld) [#/Vol] 0 10*3/uL Normal 0-5 [facility] Comment on above: Performed By: #### L 500.2500, L501.5425, L100.0100 ####[facility] [address] [place], [address] Platelet mean volume (Bld) [Entitic vol] 9.7 fL Normal 6.2-12.0 [facility] Comment on above: Performed By: #### L 500.2500, L501.5425, L100.0100 ####[facility] [address] [place], [address] Platelets (Bld) [#/Vol] 281 10*3/uL Normal 150-450 [facility] Comment on above: Performed By: #### L 500.2500, L501.5425, L100.0100 ####[facility] [address] [place], [address] RBC (Bld) [#/Vol] 4.36 10*6/uL Normal 4.2-5.4 [facility] Comment on above: Performed By: #### L 500.2500, L501.5425, L100.0100 ####[facility] [address] [place], [address] RDW SD 44.2 fl High 35.1-43.9 [facility] Comment on above: Performed By: #### L 500.2500, L501.5425, L100.0100 ####[facility] [address] [place], [address] WBC (Bld) [#/Vol] 12.2 10*3/uL High 4.4-11.0 [facility] Comment on above: Performed By: #### L 500.2500, L501.5425, L100.0100 ####[facility] [address] [place], [address] Emergency Department Summary on 01-10-2024 Emergency Department Summary Normal [facility] L501.4020on 01-10-2024 TROPONIN-I HS 6 pg/mL Normal 3.0-54.0 [facility] Comment on above: Result Comment: Nelia valenzuela Note: New Test Units and Gender Specific Reference Ranges. For more information see Policy Stat Procedure [place] High Sensitivity Troponin (TNIH) and attachments. Performed By: #### L 501.4020 ####[facility] [address] [place], [address] L501.5425on 01-10-2024 TROPONIN-I HS 4 pg/mL Normal 3.0-54.0 [facility] Comment on above: Order Comment: 1Y Result Comment: Nelia valenzuela Note: New Test Units and Gender Specific Reference Ranges. For more information see Policy Stat Procedure [place] High Sensitivity Troponin (TNIH) and attachments. Performed By: #### L 500.2500, L501.5425, L100.0100 ####[facility] [address] [place], [address] Ribs Uni Min 3V w/PA Cheston 01-10-2024 Ribs Uni Min 3V w/PA Chest Normal [facility] Pacemaker Checkon 12-09-2023 Pacemaker Check Normal [facility] 12 Lead EKGon 12-04-2023 12 Lead EKG Normal [facility] Basic Metabolic Profile (BMP )on 12-04-2023 BUN/CRE 12.9 RATIO Normal 10-20 [facility] Comment on above: Order Comment: 1Y Performed By: #### L 500.2500, L501.5425, L100.0100 ####[facility] [address] [place], [address] CA,Total 8.8 mg/dL Normal 8.5-10.1 [facility] Comment on above: Order Comment: 1Y Performed By: #### L 500.2500, L501.5425, L100.0100 ####[facility] [address] [place], [address] Chloride [Moles/Vol] 109 mmol/L High 98-107 [facility] Comment on above: Order Comment: 1Y Performed By: #### L 500.2500, L501.5425, L100.0100 ####[facility] [address] [place], [address] CO2 [Moles/Vol] 25.0 mmol/L Normal 21.0-32.0 [facility] Comment on above: Order Comment: 1Y Performed By: #### L 500.2500, L501.5425, L100.0100 ####[facility] [address] [place], [address] Creatinine [Mass/Vol] 1.32 mg/dL High 0.55-1.02 [facility] Comment on above: Order Comment: 1Y Result Comment: The validity of the calculated GFR GFRAA in patients over70 years has not been determined. Clinical correlation isessential. Performed By: #### L 500.2500, L501.5425, L100.0100 ####[facility] [address] [place], [address] EST GFR - AA 53 mL/min Low >60 [facility] Comment on above: Order Comment: 1Y Result Comment: Afri can [place] GFR Calc Performed By: #### L 500.2500, L501.5425, L100.0100 ####[facility] [address] [place], [address] GAP 5 Normal 5-15 [facility] Comment on above: Order Comment: 1Y Performed By: #### L 500.2500, L501.5425, L100.0100 ####[facility] [address] [place], [address] GFR/1.73 sq M.predicted among non-blacks MDRD (S/P/Bld) [Vol rate/Area] 44 mL/min/{1.73_m2} Low >60 [facility] Comment on above: Order Comment: 1Y Result Comment: Non- GFR Calc Performed By: #### L 500.2500, L501.5425, L100.0100 ####[facility] [address] [place], [address] Glucose [Mass/Vol] 165 mg/dL High 74-106 [facility] Comment on above: Order Comment: 1Y Result Comment: Fast ing Glucose result greater than or equal to 126 mg/dLsuggests DIABETES MELLITUS per A.D.A. criteria. Performed By: #### L 500.2500, L501.5425, L100.0100 ####[facility] [address] [place], [address] Potassium [Moles/Vol] 3.9 mmol/L Normal 3.5-5.1 [facility] Comment on above: Order Comment: 1Y Performed By: #### L 500.2500, L501.5425, L100.0100 ####[facility] [address] [place], [address] Sodium [Moles/Vol] 140 mmol/L Normal 136-145 [facility] Comment on above: Order Comment: 1Y Performed By: #### L 500.2500, L501.5425, L100.0100 ####[facility] [address] [place], [address] Urea nitrogen [Mass/Vol] 17 mg/dL Normal 7-18 [facility] Comment on above: Order Comment: 1Y Performed By: #### L 500.2500, L501.5425, L100.0100 ####[facility] [address] [place], [address] CBC W/Diff, Automatedon 09-2 -2023 Absolute Lymph 3.63 X10 3/uL Normal 0.83-4.51 [facility] Comment on above: Performed By: #### L 500.2500, L501.5425, L100.0100 ####[facility] [address] [place], [address] Absolute Neut 5.7 X10 3/uL Normal 2.0-7.7 [facility] Comment on above: Performed By: #### L 500.2500, L501.5425, L100.0100 ####[facility] [address] [place], [address] Basophils/100 WBC (Bld) 0.4 % Normal 0-1 [facility] Comment on above: Performed By: #### L 500.2500, L501.5425, L100.0100 ####[facility] [address] [place], [address] Eosinophils/100 WBC (Bld) 4.4 % Normal 0-5 [facility] Comment on above: Performed By: #### L 500.2500, L501.5425, L100.0100 ####[facility] [address] [place], [address] Erythrocyte distribution width (RBC) [Ratio] 13.8 % Normal 11.6-14.6 [facility] Comment on above: Performed By: #### L 500.2500, L501.5425, L100.0100 ####[facility] [address] [place], [address] Hematocrit (Bld) [Volume fraction] 39.6 % Normal 37-47 [facility] Comment on above: Performed By: #### L 500.2500, L501.5425, L100.0100 ####[facility] [address] [place], [address] Hemoglobin (Bld) [Mass/Vol] 12.7 g/dL Normal 12.0-15.0 [facility] Comment on above: Performed By: #### L 500.2500, L501.5425, L100.0100 ####[facility] [address] [place], [address] IG% 0.800 Normal 0.0-0.9 [facility] Comment on above: Result Comment: IG% - Immature Granulocytes (promyelocytes, myelocytes andmetamyelocytes) > 1% indicates that a LEFT SHIFT is Present. Performed By: #### L 500.2500, L501.5425, L100.0100 ####[facility] [address] [place], [address] Lymphocytes/100 WBC (Bld) 34.5 % Normal 19-41 [facility] Comment on above: Performed By: #### L 500.2500, L501.5425, L100.0100 ####[facility] [address] [place], [address] MCH (RBC) [Entitic mass] 28.2 pg Normal 27.0-32.0 [facility] Comment on above: Performed By: #### L 500.2500, L501.5425, L100.0100 ####[facility] [address] [place], [address] MCHC (RBC) [Mass/Vol] 32.1 g/dL Normal 32-36 [facility] Comment on above: Performed By: #### L 500.2500, L501.5425, L100.0100 ####[facility] [address] [place], [address] MCV (RBC) [Entitic vol] 88.0 fL Normal 81-99 [facility] Comment on above: Performed By: #### L 500.2500, L501.5425, L100.0100 ####[facility] [address] [place], [address] Monocytes/100 WBC (Bld) 5.5 % Normal 0-10 [facility] Comment on above: Performed By: #### L 500.2500, L501.5425, L100.0100 ####[facility] [address] [place], [address] Neutrophils/100 WBC (Bld) 54.4 % Normal 47-70 [facility] Comment on above: Performed By: #### L 500.2500, L501.5425, L100.0100 ####[facility] [address] [place], [address] Nucleated RBC (Bld) [#/Vol] 0 10*3/uL Normal 0-5 [facility] Comment on above: Performed By: #### L 500.2500, L501.5425, L100.0100 ####[facility] [address] [place], [address] Platelet mean volume (Bld) [Entitic vol] 9.2 fL Normal 6.2-12.0 [facility] Comment on above: Performed By: #### L 500.2500, L501.5425, L100.0100 ####[facility] [address] [place], [address] Platelets (Bld) [#/Vol] 258 10*3/uL Normal 150-450 [facility] Comment on above: Performed By: #### L 500.2500, L501.5425, L100.0100 ####[facility] [address] [place], [address] RBC (Bld) [#/Vol] 4.50 10*6/uL Normal 4.2-5.4 [facility] Comment on above: Performed By: #### L 500.2500, L501.5425, L100.0100 ####[facility] [address] [place], [address] RDW SD 44.3 fl High 35.1-43.9 [facility] Comment on above: Performed By: #### L 500.2500, L501.5425, L100.0100 ####[facility] [address] [place], [address] WBC (Bld) [#/Vol] 10.5 10*3/uL Normal 4.4-11.0 [facility] Comment on above: Performed By: #### L 500.2500, L501.5425, L100.0100 ####[facility] [address] [place], [address] CTA Chest W/WO Contraston CTA Chest W/WO Contrast Normal [facility] Chest 1 View (Portable)on Chest 1 View (Portable) Normal [facility] Emergency Department Summary on 12-04-2023 Emergency Department Summary Normal [facility] [id number] 12-04-2023 TROPONIN-I HS 5 pg/mL Normal 3.0-54.0 [facility] Comment on above: Order Comment: 1Y Result Comment: Nelia valenzuela Note: New Test Units and Gender Specific Reference Ranges. For more information see Policy Stat Procedure [place] High Sensitivity Troponin (TNIH) and attachments. Performed By: #### L 500.2500, L501.5425, L100.0100 ####[facility] [id number] [place], [address] TXT:Device Implant / Explant on 12-02-2023 TXT:Device Implant / Explant Normal [facility] Oncology Visit Reporton Oncology Visit Report Normal [facility] Absolute lymphocyte countOrd ered By: Panda Rowe on 07-12-2023 Lymphocytes Auto (Unsp spec) [#/Vol] 4.63 10*3/uL 0.83-4.51 [facility] Automated lymphocyte count a s percentage of total leukocytesOrdered By: Panda Rowe on 07-12-2023 Lymphocytes/100 WBC Auto (Unsp spec) 41.9 % 19-41 [facility] Basophil percentageOrdered B y: Panda Rowe on 07-12-2023 Basophils/100 WBC (Bld) 0.5 % 0-1 [facility] Chloride [Moles/Vol] 105 mmol/L 98-107 [facility] Eosinophils/100 WBC (Bld) 2.6 % 0-5 [facility] Glucose [Mass/Vol] 118 mg/dL 74-106 [facility] Comment on above: Fasting Glucose resu lt from 100 to 125 mg/dL suggests IMPAIRED HOMEOSTASIS per A.D.A. criteria. Hemoglobin (Bld) [Mass/Vol] 11.9 g/dL 12.0-15.0 [facility] Monocytes/100 WBC (Bld) 6.3 % 0-10 [facility] Neutrophils (Bld) [#/Vol] 5.3 10*3/uL 2.0-7.7 [facility] Neutrophils/100 WBC (Bld) 48.2 % 47-70 [facility] Potassium [Moles/Vol] 3.6 mmol/L 3.5-5.1 [facility] Sodium [Moles/Vol] 139 mmol/L 136-145 [facility] WBC (Bld) [#/Vol] 11.1 10*3/uL 4.4-11.0 [facility] Determination of erythrocyte mean corpuscular volume (MCV)Ordered By: Panda Rowe on 07-12-2023 MCV (RBC) [Entitic vol] 88.0 fL 81-99 [facility] Erythrocyte distribution wid th ratioOrdered By: Panda Rowe on 07-12-2023 Erythrocyte distribution width (RBC) [Ratio] 14.3 % 11.6-14.6 [facility] Erythrocyte distribution wid th standard deviationOrdered By: Panda Rowe on 07-12-2023 Erythrocyte distribution width (RBC) [Entitic vol] 46.2 fL 35.1-43.9 [facility] Hematocrit Auto (Bld) [Volum e fraction]Ordered By: Panda Rowe on 07-12-2023 Hematocrit (Bld) [Volume fraction] 36.6 % 37-47 [facility] Immature granulocytes/100 WB C Auto (Bld)Ordered By: Panda Rowe on 07-12-2023 Immature granulocytes/100 WBC (Bld) 0.500 % 0.0-0.9 [facility] Comment on above: IG% - Immature Granu locytes (promyelocytes, myelocytes and metamyelocytes) > 1% indicates that a LEFT SHIFT is Present. Laboratory - Chemistry and C hemistry - challengeOrdered By: Panda Rowe on 07-12-2023 CO2 [Moles/Vol] 30.0 mmol/L 21.0-32.0 [facility] Urea nitrogen/Creatinine [Mass ratio] 15.6 mg/mg 10-20 [facility] Laboratory - Hematology and Cell countsOrdered By: Panda Rowe on 07-12-2023 MCH (RBC) [Entitic mass] 28.6 pg 27.0-32.0 [facility] MCHC (RBC) [Mass/Vol] 32.5 g/dL 32-36 [facility] Nucleated RBC/100 WBC (Bld) [Ratio] 0 % 0-5 [facility] Platelet mean volume (Bld) [Entitic vol] 9.5 fL 6.2-12.0 [facility] Platelets (Bld) [#/Vol] 204 10*3/uL 150-450 [facility] No Panel InformationOrdered By: Panda Rowe on 07-12-2023 Estimated Creatinine Clearance Calc 60.03 ml/min [facility] Estimated GFR (MDRD) Amer 66 mL/min >60 [facility] Comment on above: GFR Calc Estimated GFR (MDRD) Non-Af Amer 55 mL/min >60 [facility] Comment on above: Non- GFR Calc Troponin I High Sensitivity 5 pg/mL 3.0-54.0 [facility] Comment on above: Please Note: New [place] Units and Gender Specific Reference Ranges. For more information see Policy Stat Procedure [place] High Sensitivity Troponin (TNIH) and attachments. RBC Auto (Bld) [#/Vol]Ordere d By: Panda Rowe on 07-12-2023 RBC (Bld) [#/Vol] 4.16 10*6/uL 4.2-5.4 [facility] Serum or plasma calcium heather urement (mass/volume)Ordered By: Panda Rowe on 07-12-2023 Calcium [Mass/Vol] 8.6 mg/dL 8.5-10.1 [facility] Serum or plasma creatinine m easurement (mass/volume)Ordered By: Panda Rowe on 07-12-2023 Creatinine [Mass/Vol] 1.09 mg/dL 0.55-1.02 [facility] Comment on above: The validity of the calculated GFR & GFRAA in patients over 70 years has not been determined. Clinical correlation is essential. Serum or plasma urea nitroge n measurement (mass/volume)Ordered By: Panda Rowe on 07-12-2023 Urea nitrogen [Mass/Vol] 17 mg/dL 7-18 [facility] Thin prep Papanicolaou smear with manual screeningOrdered By: Panda Rowe on 07-12-2023 Thin prep Papanicolaou smear with manual screening 4 5-15 [facility] Absolute lymphocyte countOrd ered By: Charla Wadsworth on 01-30-2023 Lymphocytes Auto (Unsp spec) [#/Vol] 3.06 10*3/uL 0.83-4.51 [facility] Basophil percentageOrdered B y: Charla Wadsworth on 01-30-2023 Basophils/100 WBC (Bld) 0.4 % 0-1 [facility] Bilirubin [Mass/Vol] 0.40 mg/dL 0.20-1.00 [facility] Comment on above: For patients on eltr ombopag therapy, use of Dimension [place] TBIL is not recommended. Chloride [Moles/Vol] 104 mmol/L 98-107 [facility] Eosinophils/100 WBC (Bld) 0.8 % 0-5 [facility] Glucose [Mass/Vol] 117 mg/dL 74-106 [facility] Comment on above: Fasting Glucose resu lt from 100 to 125 mg/dL suggests IMPAIRED HOMEOSTASIS per A.D.A. criteria. Neutrophils (Bld) [#/Vol] 9.7 10*3/uL 2.0-7.7 [facility] Neutrophils/100 WBC (Bld) 71.2 % 47-70 [facility] Potassium [Moles/Vol] 3.0 mmol/L 3.5-5.1 [facility] Protein [Mass/Vol] 8.2 g/dL 6.4-8.2 [facility] Sodium [Moles/Vol] 142 mmol/L 136-145 [facility] WBC (Bld) [#/Vol] 13.7 10*3/uL 4.4-11.0 [facility] Blood erythrocytes count (nu mber/volume)Ordered By: Charla Wadsworth on 01-30-2023 RBC (Bld) [#/Vol] 4.94 10*6/uL 4.2-5.4 [facility] Blood hemoglobin measurement (mass/volume)Ordered By: Charla Wadsworth on 01-30-2023 Hemoglobin (Bld) [Mass/Vol] 13.7 g/dL 12.0-15.0 [facility] Blood lymphocytes/100 leukoc ytesOrdered By: Charla Wadsworth on 01-30-2023 Lymphocytes/100 WBC (Bld) 22.4 % 19-41 [facility] Blood monocytes/100 leukocyt esOrdered By: Charla Wadsworth on 01-30-2023 Monocytes/100 WBC (Bld) 4.6 % 0-10 [facility] Blood platelet mean volumeOr dered By: Charla Wadsworth on 01-30-2023 Platelet mean volume (Bld) [Entitic vol] 9.6 fL 6.2-12.0 [facility] Determination of erythrocyte mean corpuscular volume (MCV)Ordered By: Charla Wadsworth on 01-30-2023 MCV (RBC) [Entitic vol] 86.2 fL 81-99 [facility] Hematocrit Auto (Bld) [Volum e fraction]Ordered [facility]: [facility] on 01-30-2023 Hematocrit (Bld) [Volume fraction] 42.6 % 37-47 [facility] Laboratory - Chemistry and C hemistry - challengeOrdered By: [facility] Aguilarsusanne on 01-30-2023 ALP [Catalytic activity/Vol] 122 U/L 45-117 [facility] ALT [Catalytic activity/Vol] 20 U/L 13-56 [facility] CO2 [Moles/Vol] 30.0 mmol/L 21.0-32.0 [facility] Globulin (S) [Mass/Vol] 4.8 g/dL 2.2-4.2 [facility] Urea nitrogen/Creatinine [Mass ratio] 9.9 mg/mg 10-20 [facility] Laboratory - Hematology and Cell countsOrdered By: aylaglendalejoselyn Wadsworth on 01-30-2023 Erythrocyte distribution width (RBC) [Entitic vol] 44.7 fL 35.1-43.9 [facility] Erythrocyte distribution width (RBC) [Ratio] 14.2 % 11.6-14.6 [facility] Immature granulocytes/100 WBC (Bld) 0.600 % 0.0-0.9 [facility] Comment on above: IG% - Immature Granu locytes (promyelocytes, myelocytes and metamyelocytes) > 1% indicates that a LEFT SHIFT is Present. MCH (RBC) [Entitic mass] 27.7 pg 27.0-32.0 [facility] Nucleated RBC/100 WBC (Bld) [Ratio] 0 % 0-5 [facility] Auto (RBC) [Mass/Vol]Or dered By: Charla Wadsworth on 01-30-2023 MCHC (RBC) [Mass/Vol] 32.2 g/dL 32-36 [facility] No Panel InformationOrdered By: Charla Wadsworth on 01-30-2023 Estimated GFR (MDRD) Amer 73 mL/min >60 [facility] Comment on above: GFR Calc Estimated GFR (MDRD) Non-Af Amer 60 mL/min >60 [facility] Comment on above: Non- GFR Calc Thyroid Stimulating Hormone (TSH) 1.23 uIU/mL 0.358-3.74 [facility] Platelets bldOrdered By: Ozzy Wadsworth on 01-30-2023 Platelets (Bld) [#/Vol] 346 10*3/uL 150-450 [facility] Serum or plasma albumin heather urement (mass/volume)Ordered By: Charla Wadsworth on 01-30-2023 Albumin [Mass/Vol] 3.4 g/dL 3.2-5.0 [facility] Serum or plasma albumin/glob ulin mass ratioOrdered By: Charla Wadsworth on 01-30-2023 Albumin/Globulin [Mass ratio] 0.7 {ratio} 0.9-2.4 [facility] Serum or plasma calcium heather urement (mass/volume)Ordered By: Charla Wadsworth on 01-30-2023 Calcium [Mass/Vol] 9.2 mg/dL 8.5-10.1 [facility] Serum or plasma creatinine m easurement (mass/volume)Ordered By: Charla Wadsworth on 01-30-2023 Creatinine [Mass/Vol] 1.01 mg/dL 0.55-1.02 [facility] Comment on above: The validity of the calculated GFR & GFRAA in patients over 70 years has not been determined. Clinical correlation is essential. Serum or plasma urea nitroge n measurement (mass/volume)Ordered By: Charla Wadsworth on 01-30-2023 Urea nitrogen [Mass/Vol] 10 mg/dL 7-18 [facility] Thin prep Papanicolaou smear with manual screeningOrdered By: Charla Gregsusanne on 01-30-2023 Thin prep Papanicolaou smear with manual screening 20 U/L 15-37 [facility] Thin prep Papanicolaou smear with manual screening 8 5-15 [facility] Absolute lymphocyte countOrd ered By: Keon Ramirez on 12-03-2022 Lymphocytes Auto (Unsp spec) [#/Vol] 3.65 10*3/uL 0.83-4.51 [facility] Basophil percentageOrdered B y: Keon Ramirez on 12-03-2022 Basophils/100 WBC (Bld) 0.3 % 0-1 [facility] Chloride [Moles/Vol] 103 mmol/L 98-107 [facility] Eosinophils/100 WBC (Bld) 1.5 % 0-5 [facility] Glucose [Mass/Vol] 89 mg/dL 74-106 [facility] Neutrophils (Bld) [#/Vol] 8.4 10*3/uL 2.0-7.7 [facility] Neutrophils/100 WBC (Bld) 64.1 % 47-70 [facility] Potassium [Moles/Vol] 4.3 mmol/L 3.5-5.1 [facility] Sodium [Moles/Vol] 137 mmol/L 136-145 [facility] WBC (Bld) [#/Vol] 13.0 10*3/uL 4.4-11.0 [facility] Blood erythrocytes count (nu mber/volume)Ordered By: Keon Ramirez on 12-03-2022 RBC (Bld) [#/Vol] 4.75 10*6/uL 4.2-5.4 [facility] Blood hemoglobin measurement (mass/volume)Ordered By: Keon Ramirez on 12-03-2022 Hemoglobin (Bld) [Mass/Vol] 13.7 g/dL 12.0-15.0 [facility] Blood lymphocytes/100 leukoc ytesOrdered By: Keon Ramirez on 12-03-2022 Lymphocytes/100 WBC (Bld) 28.0 % 19-41 [facility] Blood monocytes/100 leukocyt esOrdered By: Keon Ramirez on 12-03-2022 Monocytes/100 WBC (Bld) 5.7 % 0-10 [facility] Blood platelet mean volumeOr dered By: Keon Ramirez on 12-03-2022 Platelet mean volume (Bld) [Entitic vol] 9.5 fL 6.2-12.0 [facility] Determination of erythrocyte mean corpuscular volume (MCV)Ordered By: Keon Ramirez on 12-03-2022 MCV (RBC) [Entitic vol] 87.2 fL 81-99 [facility] Hematocrit Auto (Bld) [Volum e fraction]Ordered By: Keon Ramirez on 12-03-2022 Hematocrit (Bld) [Volume fraction] 41.4 % 37-47 [facility] Laboratory - Chemistry and C hemistry - challengeOrdered By: Keon Ramirez on 12-03-2022 CO2 [Moles/Vol] 28.0 mmol/L 21.0-32.0 [facility] Urea nitrogen/Creatinine [Mass ratio] 12.3 mg/mg 10-20 [facility] Laboratory - Hematology and Cell countsOrdered By: Keon Ramirez on 12-03-2022 Erythrocyte distribution width (RBC) [Entitic vol] 44.3 fL 35.1-43.9 [facility] Erythrocyte distribution width (RBC) [Ratio] 13.7 % 11.6-14.6 [facility] Immature granulocytes/100 WBC (Bld) 0.400 % 0.0-0.9 [facility] Comment on above: IG% - Immature Granu locytes (promyelocytes, myelocytes and metamyelocytes) > 1% indicates that a LEFT SHIFT is Present. MCH (RBC) [Entitic mass] 28.8 pg 27.0-32.0 [facility] Nucleated RBC/100 WBC (Bld) [Ratio] 0 % 0-5 [facility] MCHC Auto (RBC) [Mass/Vol]Or dered By: Keon Ramirez on 12-03-2022 MCHC (RBC) [Mass/Vol] 33.1 g/dL 32-36 [facility] No Panel InformationOrdered By: Keon Ramirez on 12-03-2022 D-Dimer Quantitative (PE/DVT) 0.79 FEU/ug/m 0.27-0.49 [facility] Comment on above: CRITICAL VALUE VERIF IED. CALLED TO BETHANY ETIENNE RN [id number] Josefina Villalobos.RESULTS READ BACK BY SAME . D-Dimer ELEVATED (>0.49): Additional studies and clinicalassessments are indicated to conclude diagnosis of:Deep Vein Thrombosis (DVT) or Pulmonary Embolism (PE) Troponin I High Sensitivity 4 pg/mL 3.0-54.0 [facility] Comment on above: Please Note: New [place] Units and Gender Specific Reference Ranges. For more information see Policy Stat Procedure [place] High Sensitivity Troponin (TNIH) and attachments. Estimated Creatinine Clearance Calc 40.24 ml/min [facility] Estimated GFR (MDRD) Amer 58 mL/min >60 [facility] Comment on above: GFR Calc Estimated GFR (MDRD) Non-Af Amer 48 mL/min >60 [facility] Comment on above: Non- GFR Calc Platelets bldOrdered By: Carolyn Ramirez on 12-03-2022 Platelets (Bld) [#/Vol] 354 10*3/uL 150-450 [facility] Serum or plasma calcium heather urement (mass/volume)Ordered By: Keon Ramirez on 12-03-2022 Calcium [Mass/Vol] 9.3 mg/dL 8.5-10.1 [facility] Serum or plasma creatinine m easurement (mass/volume)Ordered By: Keon Ramirez on 12-03-2022 Creatinine [Mass/Vol] 1.22 mg/dL 0.55-1.02 [facility] Comment on above: The validity of the calculated GFR & GFRAA in patients over 70 years has not been determined. Clinical correlation is essential. Serum or plasma urea nitroge n measurement (mass/volume)Ordered By: Keon Ramirez on 12-03-2022 Urea nitrogen [Mass/Vol] 15 mg/dL 7-18 [facility] Thin prep Papanicolaou smear with manual screeningOrdered By: Keon Ramirez on 12-03-2022 Thin prep Papanicolaou smear with manual screening 6 5-15 [facility] Absolute lymphocyte countOrd ered By: Dr. Wadsworth on 05-16-2022 Lymphocytes Auto (Unsp spec) [#/Vol] 3.61 10*3/uL 0.83-4.51 [facility] Basophil percentageOrdered B y: Dr. Wadsworth on 05-16-2022 Basophils/100 WBC (Bld) 0.3 % 0-1 [facility] Bilirubin [Mass/Vol] 0.30 mg/dL 0.20-1.00 [facility] Comment on above: For patients on eltr ombopag therapy, use of Dimension [place] TBIL is not recommended. Chloride [Moles/Vol] 106 mmol/L 98-107 [facility] Cholesterol [Mass/Vol] 156 mg/dL <200 [facility] Comment on above: <200 mg/dL Desirable 200-240 mg/dL Borderline >240 mg/dL High Risk Eosinophils/100 WBC (Bld) 1.2 % 0-5 [facility] Glucose [Mass/Vol] 134 mg/dL 74-106 [facility] Comment on above: Fasting Glucose resu lt greater than or equal to 126 mg/dL suggests DIABETES MELLITUS per A.D.A. criteria. Neutrophils (Bld) [#/Vol] 10.4 10*3/uL 2.0-7.7 [facility] Neutrophils/100 WBC (Bld) 68.1 % 47-70 [facility] Potassium [Moles/Vol] 5.0 mmol/L 3.5-5.1 [facility] Protein [Mass/Vol] 7.9 g/dL 6.4-8.2 [facility] Sodium [Moles/Vol] 138 mmol/L 136-145 [facility] Triglyceride [Mass/Vol] 193 mg/dL <199 [facility] Comment on above: The drugs N-Acetylcy steine and Metamizole may falsely depress this assay.Serum Triglycerides Reference Interval Normal <150 mg/dL Borderline high 150 - 199 mg/dL High 200 - 499 mg/dL Very High > or = 500 mg/dL WBC (Bld) [#/Vol] 15.2 10*3/uL 4.4-11.0 [facility] Blood erythrocytes count (nu mber/volume)Ordered By: Dr. Wadsworth on 05-16-2022 RBC (Bld) [#/Vol] 5.19 10*6/uL 4.2-5.4 [facility] Blood hemoglobin measurement (mass/volume)Ordered By: Dr. Wadsworth on 05-16-2022 Hemoglobin (Bld) [Mass/Vol] 14.5 g/dL 12.0-15.0 [facility] Blood lymphocytes/100 leukoc ytesOrdered By: Dr. Wadsworth on 05-16-2022 Lymphocytes/100 WBC (Bld) 23.7 % 19-41 [facility] Blood monocytes/100 leukocyt esOrdered By: Dr. Wadsworth on 05-16-2022 Monocytes/100 WBC (Bld) 6.2 % 0-10 [facility] Blood platelet mean volumeOr dered By: Dr. Wadsworth on 05-16-2022 Platelet mean volume (Bld) [Entitic vol] 9.6 fL 6.2-12.0 [facility] Determination of erythrocyte mean corpuscular volume (MCV)Ordered By: Dr. Wadsworth on 05-16-2022 MCV (RBC) [Entitic vol] 88.4 fL 81-99 [facility] Direct bilirubinOrdered By: Dr. Wadsworth on 05-16-2022 Bilirubin.direct [Mass/Vol] 0.09 mg/dL 0.00-0.30 [facility] Hematocrit Auto (Bld) [Volum e fraction]Ordered By: Dr. Wadsworth on 05-16-2022 Hematocrit (Bld) [Volume fraction] 45.9 % 37-47 [facility] Laboratory - Chemistry and C hemistry - challengeOrdered By: Dr. Wadsworth on 05-16-2022 ALP [Catalytic activity/Vol] 121 U/L 45-117 [facility] ALT [Catalytic activity/Vol] 16 U/L 13-56 [facility] CO2 [Moles/Vol] 29.0 mmol/L 21.0-32.0 [facility] Globulin (S) [Mass/Vol] 4.6 g/dL 2.2-4.2 [facility] Urea nitrogen/Creatinine [Mass ratio] 11.6 mg/mg 10-20 [facility] Laboratory - Hematology and Cell countsOrdered By: Dr. Wadsworth on 05-16-2022 Erythrocyte distribution width (RBC) [Entitic vol] 52.3 fL 35.1-43.9 [facility] Erythrocyte distribution width (RBC) [Ratio] 16.2 % 11.6-14.6 [facility] Immature granulocytes/100 WBC (Bld) 0.500 % 0.0-0.9 [facility] Comment on above: IG% - Immature Granu locytes (promyelocytes, myelocytes and metamyelocytes) > 1% indicates that a LEFT SHIFT is Present. MCH (RBC) [Entitic mass] 27.9 pg 27.0-32.0 [facility] Nucleated RBC/100 WBC (Bld) [Ratio] 0 % 0-5 [facility] MCHC Auto (RBC) [Mass/Vol]Or dered By: Dr. Wadsworth on 05-16-2022 MCHC (RBC) [Mass/Vol] 31.6 g/dL 32-36 [facility] No Panel InformationOrdered By: Dr. Wadsworth on 05-16-2022 Estimated GFR (MDRD) Amer 59 mL/min >60 [facility] Comment on above: GFR Calc Estimated GFR (MDRD) Non-Af Amer 49 mL/min >60 [facility] Comment on above: Non- GFR Calc Platelets bldOrdered By: Dr. Wadsworth on 05-16-2022 Platelets (Bld) [#/Vol] 329 10*3/uL 150-450 [facility] Serum or plasma albumin heather urement (mass/volume)Ordered By: Dr. Wadsworth on 05-16-2022 Albumin [Mass/Vol] 3.3 g/dL 3.2-5.0 [facility] Serum or plasma albumin/glob ulin mass ratioOrdered By: Dr. Wadsworth on 05-16-2022 Albumin/Globulin [Mass ratio] 0.7 {ratio} 0.9-2.4 [facility] Serum or plasma calcium heather urement (mass/volume)Ordered By: Dr. Wadsworth on 05-16-2022 Calcium [Mass/Vol] 9.7 mg/dL 8.5-10.1 [facility] Serum or plasma cholesterol in HDL measurement (mass/volume)Ordered By: Dr. Wadsworth on 05-16-2022 Cholesterol in HDL [Mass/Vol] 30 mg/dL >40 [facility] Comment on above: The drugs N-Acetylcy steine and Metamizole may falsely depress this assay. Reference Range HDL <40 mg/dL Low HDL Cholesterol HDL >or= 60 mg/dL High HDL Cholesterol Serum or plasma cholesterol in VLDL measurement (mass/volume)Ordered By: Dr. Wadsworth on 05-16-2022 Cholesterol in VLDL [Mass/Vol] 39 mg/dL 5-40 [facility] Serum or plasma creatinine m easurement (mass/volume)Ordered By: Dr. Wadsworth on 05-16-2022 Creatinine [Mass/Vol] 1.21 mg/dL 0.55-1.02 [facility] Comment on above: The validity of the calculated GFR & GFRAA in patients over 70 years has not been determined. Clinical correlation is essential. Serum or plasma low density lipoprotein (LDL) cholesterol measurement (mass/volume)Ordered By: Dr. Wadsworth on 05-16-2022 Cholesterol in LDL [Mass/Vol] 87 mg/dL 0-130 [facility] Serum or plasma urea nitroge n measurement (mass/volume)Ordered By: Dr. Wadsworth on 05-16-2022 Urea nitrogen [Mass/Vol] 14 mg/dL 7-18 [facility] Thin prep Papanicolaou smear with manual screeningOrdered By: Dr. Wadsworth on 05-16-2022 Thin prep Papanicolaou smear with manual screening 13 U/L 15-37 [facility] Thin prep Papanicolaou smear with manual screening 3 5-15 [facility] Absolute lymphocyte counton 10-24-2021 Lymphocytes Auto (Unsp spec) [#/Vol] 2.19 10*3/uL 0.83-4.51 [facility] Work Phone: Basophil percentageon 2021 Basophil percentage < 10.0 umol/L 11-32 [facility] Work Phone: Basophil percentage 3.1 mg/dL 2.5-4.9 [facility] Work Phone: Basophils/100 WBC (Bld) 0.3 % 0-1 [facility] Work Phone: Bilirubin [Mass/Vol] 0.50 mg/dL 0.20-1.00 [facility] Work Phone: Comment on above: For patients on eltr ombopag therapy, use of Dimension [place] TBIL is not recommended. Chloride [Moles/Vol] 109 mmol/L 98-107 [facility] Work Phone: Eosinophils/100 WBC (Bld) 0.5 % 0-5 [facility] Work Phone: Glucose [Mass/Vol] 97 mg/dL 74-106 [facility] Work Phone: Neutrophils (Bld) [#/Vol] 8.5 10*3/uL 2.0-7.7 [facility] Work Phone: Neutrophils/100 WBC (Bld) 73.4 % 47-70 [facility] Work Phone: Potassium [Moles/Vol] 3.5 mmol/L 3.5-5.1 [facility] Work Phone: Protein [Mass/Vol] 7.6 g/dL 6.4-8.2 [facility] Work Phone: Sodium [Moles/Vol] 141 mmol/L 136-145 [facility] Work Phone: WBC (Bld) [#/Vol] 11.6 10*3/uL 4.4-11.0 [facility] Work Phone: Blood erythrocytes count (nu mber/volume)on 10-24-2021 RBC (Bld) [#/Vol] 4.89 10*6/uL 4.2-5.4 [facility] Work Phone: Blood hemoglobin measurement (mass/volume)on 10-24-2021 Hemoglobin (Bld) [Mass/Vol] 13.6 g/dL 12.0-15.0 [facility] Work Phone: Blood lymphocytes/100 leukoc yteson 10-24-2021 Lymphocytes/100 WBC (Bld) 18.8 % 19-41 [facility] Work Phone: Blood monocytes/100 leukocyt eson 10-24-2021 Monocytes/100 WBC (Bld) 6.4 % 0-10 [facility] Work Phone: [phone] Blood platelet mean volumeon 10-24-2021 Platelet mean volume (Bld) [Entitic vol] 9.4 fL 6.2-12.0 [facility] Work Phone: [phone] Determination of erythrocyte mean corpuscular volume (MCV)on 10-24-2021 MCV (RBC) [Entitic vol] 86.1 fL 81-99 [facility] Work Phone: [phone] Hematocrit Auto (Bld) [Volum e fraction]on 10-24-2021 Hematocrit (Bld) [Volume fraction] 42.1 % 37-47 [facility] Work Phone: [phone] Laboratory - Chemistry and C hemistry - challengeon 10-24-2021 ALP [Catalytic activity/Vol] 107 U/L 45-117 [facility] Work Phone: [phone] ALT [Catalytic activity/Vol] 23 U/L 13-56 [facility] Work Phone: [phone] CO2 [Moles/Vol] 26.0 mmol/L 21.0-32.0 [facility] Work Phone: [phone] Globulin (S) [Mass/Vol] 4.4 g/dL 2.2-4.2 [facility] Work Phone: [phone] Urea nitrogen/Creatinine [Mass ratio] 13.7 mg/mg 10-20 [facility] Work Phone: [phone] Laboratory - Hematology and Cell countson 10-24-2021 Erythrocyte distribution width (RBC) [Entitic vol] 47.4 fL 35.1-43.9 [facility] Work Phone: [phone] Erythrocyte distribution width (RBC) [Ratio] 15.0 % 11.6-14.6 [facility] Work Phone: [phone] Immature granulocytes/100 WBC (Bld) 0.600 % 0.0-0.9 [facility] Work Phone: [phone] Comment on above: IG% - Immature Granu locytes (promyelocytes, myelocytes and metamyelocytes) > 1% indicates that a LEFT SHIFT is Present. MCH (RBC) [Entitic mass] 27.8 pg 27.0-32.0 [facility] Work Phone: [phone] Nucleated RBC/100 WBC (Bld) [Ratio] 0 % 0-5 [facility] Work Phone: [phone] MCHC Auto (RBC) [Mass/Vol]on 10-24-2021 MCHC (RBC) [Mass/Vol] 32.3 g/dL 32-36 [facility] Work Phone: No Panel Informationon 10-24 Estimated Creatinine Clearance Calc 68.06 ml/min [facility] Work Phone: [phone] Estimated GFR (MDRD) Amer 106 mL/min >60 [facility] Work Phone: [phone] Comment on above: GFR Calc Estimated GFR (MDRD) Non-Af Amer 88 mL/min >60 [facility] Work Phone: [phone] Comment on above: Non- GFR Calc Platelets bldon 10-24-2021 Platelets (Bld) [#/Vol] 264 10*3/uL 150-450 [facility] Work Phone: [phone] Serum or plasma albumin heather urement (mass/volume)on 10-24-2021 Albumin [Mass/Vol] 3.2 g/dL 3.2-5.0 [facility] Work Phone: [phone] Serum or plasma albumin/glob ulin mass ratioon 10-24-2021 Albumin/Globulin [Mass ratio] 0.7 {ratio} 0.9-2.4 [facility] Work Phone: [phone] Serum or plasma calcium heather urement (mass/volume)on 10-24-2021 Calcium [Mass/Vol] 9.4 mg/dL 8.5-10.1 [facility] Work Phone: [phone] Serum or plasma creatinine m easurement (mass/volume)on 10-24-2021 Creatinine [Mass/Vol] 0.73 mg/dL 0.55-1.02 [facility] Work Phone: Comment on above: The validity of the calculated GFR & GFRAA in patients over 70 years has not been determined. Clinical correlation is essential. Serum or plasma urea nitroge n measurement (mass/volume)on 10-24-2021 Urea nitrogen [Mass/Vol] 10 mg/dL 7-18 [facility] Work Phone: [phone] Thin prep Papanicolaou smear with manual screeningon 10-24-2021 Thin prep Papanicolaou smear with manual screening 28 U/L 15-37 [facility] Work Phone: [phone] Thin prep Papanicolaou smear with manual screening 6 5-15 [facility] Work Phone: [phone] Basophil percentageon 2021 Basophil percentage 0-5 SEEN /hpf 0-5 [facility] Work Phone: [phone] Lactate [Moles/Vol] 1.1 mmol/L 0.4-2.0 [facility] Work Phone: [phone] Bilirubin Test strip Ql (U)o n 10-23-2021 Bilirubin Ql (U) Negative Negative [facility] Work Phone: [phone] Ketones Test strip Ql (U)on 10-23-2021 Ketones Ql (U) 50 mg/dl Negative [facility] Work Phone: Laboratory - Chemistry and C hemistry - challengeon 10-23-2021 Magnesium [Mass/Vol] 2.0 mg/dL 1.6-2.6 [facility] Work Phone: Comment on above: Slight Hemolysis, Re sult may be falsely increased. Laboratory - Drug toxicology on 10-23-2021 Amphetamines Ql (U) Negative <1000 ng/mL [facility] Work Phone: [phone] Benzodiazepines Ql (U) Negative < 200 ng/mL [facility] Work Phone: [phone] Cannabinoids Screen Ql (U) Negative < 50 ng/mL [facility] Work Phone: [phone] Cocaine Ql (U) Negative < 300 ng/mL [facility] Work Phone: [phone] Opiates Ql (U) Negative < 300 ng/mL [facility] Work Phone: [phone] Mucus LM Ql (Urine sed)on Mucus Ql (Urine sed) 0 SEEN /hpf [facility] Work Phone: [phone] Nitrite Test strip Ql (U)on 10-23-2021 Nitrite Ql (U) Negative Negative [facility] Work Phone: [phone] Panel Informationon 10-23 MDMA (Ecstasy) Screen Negative < 500 ng/mL [facility] Work Phone: [phone] Urine Barbiturates Screen Negative < 200 ng/mL [facility] Work Phone: [phone] Urine Drug Screen Comment [facility] Work Phone: [phone] Comment on above: CONFIRMATORY TESTING FOR ALL [...] Methadone Screen Negative < 300 ng/mL [facility] Work Phone: [phone] Thyroid Stimulating Hormone (TSH) 1.39 uIU/mL 0.358-3.74 [facility] Work Phone: [phone] Protein Test strip Ql (U)on 10-23-2021 Protein Ql (U) 15 mg/dl Negative [facility] Work Phone: [phone] Squamous epithelial cells de tection in urine sediment by light microscopyon 10-23-2021 Epithelial cells.squamous LM Ql (Urine sed) 0-5 SEEN /hpf 5-10 [facility] Work Phone: [phone] Urine blood detectionon 10-09 RBC Ql (U) 25 /ul Negative [facility] Work Phone: RBC Ql (U) 0-5 SEEN /hpf 0-5 [facility] Work Phone: Urine clarityon 10-23-2021 Clarity (U) Clear Clear [facility] Work Phone: Urine color determinationon 10-23-2021 Color (U) Yellow Yellow [facility] Work Phone: Urine glucose detectionon Glucose Ql (U) Normal mg/dl Normal [facility] Work Phone: Urine leukocyte esterase det ection by dipstickon 10-23-2021 Leukocyte esterase Test strip Ql (U) 25 /ul Negative [facility] Work Phone: Urine pHon 10-23-2021 pH (U) 5.0 [pH] 5.0 - 8.0 [facility] Work Phone: Urine phencyclidine (PCP) de tectionon 10-23-2021 Phencyclidine Ql (U) Negative < 25 ng/mL [facility] Work Phone: Urine sediment bacteria coun t by microscopy (number/high power field)on 10-23-2021 Bacteria LM.HPF (Urine sed) [#/Area] 1 /[HPF] None Seen [facility] Work Phone: Urine specific gravity measu rementon 10-23-2021 Specific gravity (U) [Rel density] 1.020 1.002-1.030 [facility] Work Phone: Urobilinogen Auto test strip Ql (U)on 10-23-2021 Urobilinogen Ql (U) Normal mg/dl Normal [facility] Work Phone: Absolute lymphocyte counton 10-22-2021 Lymphocytes Auto (Unsp spec) [#/Vol] 2.47 10*3/uL 0.83-4.51 [facility] Work Phone: Basophil percentageon 2021 Basophils/100 WBC (Bld) 0.4 % 0-1 [facility] Work Phone: Bilirubin [Mass/Vol] 0.30 mg/dL 0.20-1.00 [facility] Work Phone: Comment on above: For patients on eltr ombopag therapy, use of Dimension [place] TBIL is not recommended. Chloride [Moles/Vol] 111 mmol/L 98-107 [facility] Work Phone: Eosinophils/100 WBC (Bld) 2.3 % 0-5 [facility] Work Phone: Glucose [Mass/Vol] 107 mg/dL 74-106 [facility] Work Phone: Comment on above: Fasting Glucose resu lt from 100 to 125 mg/dL suggests IMPAIRED HOMEOSTASIS per A.D.A. criteria. Neutrophils (Bld) [#/Vol] 7.6 10*3/uL 2.0-7.7 [facility] Work Phone: Neutrophils/100 WBC (Bld) 68.7 % 47-70 [facility] Work Phone: Potassium [Moles/Vol] 3.9 mmol/L 3.5-5.1 [facility] Work Phone: Protein [Mass/Vol] 7.8 g/dL 6.4-8.2 [facility] Work Phone: Sodium [Moles/Vol] 141 mmol/L 136-145 [facility] Work Phone: WBC (Bld) [#/Vol] 11.1 10*3/uL 4.4-11.0 [facility] Work Phone: Blood erythrocytes count (nu mber/volume)on 10-22-2021 RBC (Bld) [#/Vol] 5.04 10*6/uL 4.2-5.4 [facility] Work Phone: Blood hemoglobin measurement (mass/volume)on 10-22-2021 Hemoglobin (Bld) [Mass/Vol] 13.9 g/dL 12.0-15.0 [facility] Work Phone: Blood lymphocytes/100 leukoc yteson 10-22-2021 Lymphocytes/100 WBC (Bld) 22.3 % 19-41 [facility] Work Phone: Blood monocytes/100 leukocyt eson 10-22-2021 Monocytes/100 WBC (Bld) 5.8 % 0-10 [facility] Work Phone: Blood platelet mean volumeon 10-22-2021 Platelet mean volume (Bld) [Entitic vol] 9.5 fL 6.2-12.0 [facility] Work Phone: Determination of erythrocyte mean corpuscular volume (MCV)on 10-22-2021 MCV (RBC) [Entitic vol] 87.3 fL 81-99 [facility] Work Phone: Hematocrit Auto (Bld) [Volum e fraction]on 10-22-2021 Hematocrit (Bld) [Volume fraction] 44.0 % 37-47 [facility] Work Phone: Laboratory - Chemistry and C hemistry - challengeon 10-22-2021 ALP [Catalytic activity/Vol] 112 U/L 45-117 [facility] Work Phone: ALT [Catalytic activity/Vol] 26 U/L 13-56 [facility] Work Phone: CO2 [Moles/Vol] 25.0 mmol/L 21.0-32.0 [facility] Work Phone: Globulin (S) [Mass/Vol] 4.5 g/dL 2.2-4.2 [facility] Work Phone: Urea nitrogen/Creatinine [Mass ratio] 19.9 mg/mg 10-20 [facility] Work Phone: Laboratory - Hematology and Cell countson 10-22-2021 Erythrocyte distribution width (RBC) [Entitic vol] 49.0 fL 35.1-43.9 [facility] Work Phone: Erythrocyte distribution width (RBC) [Ratio] 15.4 % 11.6-14.6 [facility] Work Phone: Immature granulocytes/100 WBC (Bld) 0.500 % 0.0-0.9 [facility] Work Phone: [phone] Comment on above: IG% - Immature Granu locytes (promyelocytes, myelocytes and metamyelocytes) > 1% indicates that a LEFT SHIFT is Present. MCH (RBC) [Entitic mass] 27.6 pg 27.0-32.0 [facility] Work Phone: [phone] Nucleated RBC/100 WBC (Bld) [Ratio] 0 % 0-5 [facility] Work Phone: [phone] MCHC Auto (RBC) [Mass/Vol]on 10-22-2021 MCHC (RBC) [Mass/Vol] 31.6 g/dL 32-36 [facility] Work Phone: No Panel Informationon 10-22 Estimated Creatinine Clearance Calc 52.30 ml/min [facility] Work Phone: [phone] Estimated GFR (MDRD) Amer 78 mL/min >60 [facility] Work Phone: [phone] Comment on above: GFR Calc Estimated GFR (MDRD) Non-Af Amer 64 mL/min >60 [facility] Work Phone: [phone] Comment on above: Non- GFR Calc Platelets bldon 10-22-2021 Platelets (Bld) [#/Vol] 259 10*3/uL 150-450 [facility] Work Phone: [phone] Serum or plasma albumin heather urement (mass/volume)on 10-22-2021 Albumin [Mass/Vol] 3.3 g/dL 3.2-5.0 [facility] Work Phone: [phone] Serum or plasma albumin/glob ulin mass ratioon 10-22-2021 Albumin/Globulin [Mass ratio] 0.7 {ratio} 0.9-2.4 [facility] Work Phone: [phone] Serum or plasma calcium heather urement (mass/volume)on 10-22-2021 Calcium [Mass/Vol] 9.5 mg/dL 8.5-10.1 [facility] Work Phone: Serum or plasma creatinine m easurement (mass/volume)on 10-22-2021 Creatinine [Mass/Vol] 0.95 mg/dL 0.55-1.02 [facility] Work Phone: Comment on above: The validity of the calculated GFR & GFRAA in patients over 70 years has not been determined. Clinical correlation is essential. Serum or plasma urea nitroge n measurement (mass/volume)on 10-22-2021 Urea nitrogen [Mass/Vol] 19 mg/dL 7-18 [facility] Work Phone: Thin prep Papanicolaou smear with manual screeningon 10-22-2021 Thin prep Papanicolaou smear with manual screening 26 U/L 15-37 [facility] Work Phone: Thin prep Papanicolaou smear with manual screening 5 5-15 [facility] Work Phone: Absolute lymphocyte counton 08-15-2021 Lymphocytes Auto (Unsp spec) [#/Vol] 4.25 10*3/uL 0.83-4.51 [facility] Work Phone: Basophil percentageon 2021 Basophils/100 WBC (Bld) 0.3 % 0-1 [facility] Work Phone: Chloride [Moles/Vol] 107 mmol/L 98-107 [facility] Work Phone: Eosinophils/100 WBC (Bld) 0.6 % 0-5 [facility] Work Phone: Glucose [Mass/Vol] 100 mg/dL 74-106 [facility] Work Phone: Comment on above: Fasting Glucose resu lt from 100 to 125 mg/dL suggests IMPAIRED HOMEOSTASIS per A.D.A. criteria. Neutrophils (Bld) [#/Vol] 12.8 10*3/uL 2.0-7.7 [facility] Work Phone: Neutrophils/100 WBC (Bld) 69.6 % 47-70 [facility] Work Phone: Potassium [Moles/Vol] 4.2 mmol/L 3.5-5.1 [facility] Work Phone: [phone] Sodium [Moles/Vol] 140 mmol/L 136-145 [facility] Work Phone: WBC (Bld) [#/Vol] 18.3 10*3/uL 4.4-11.0 [facility] Work Phone: [phone] Blood erythrocytes count (nu mber/volume)on 08-15-2021 RBC (Bld) [#/Vol] 4.87 10*6/uL 4.2-5.4 [facility] Work Phone: [phone] Blood hemoglobin measurement (mass/volume)on 08-15-2021 Hemoglobin (Bld) [Mass/Vol] 14.6 g/dL 12.0-15.0 [facility] Work Phone: Blood lymphocytes/100 leukoc yteson 08-15-2021 Lymphocytes/100 WBC (Bld) 23.2 % 19-41 [facility] Work Phone: [phone] Blood monocytes/100 leukocyt eson 08-15-2021 Monocytes/100 WBC (Bld) 5.5 % 0-10 [facility] Work Phone: Blood platelet mean volumeon 08-15-2021 Platelet mean volume (Bld) [Entitic vol] 9.9 fL 6.2-12.0 [facility] Work Phone: [phone] Determination of erythrocyte mean corpuscular volume (MCV)on 08-15-2021 MCV (RBC) [Entitic vol] 92.8 fL 81-99 [facility] Work Phone: Hematocrit Auto (Bld) [Volum e fraction]on 08-15-2021 Hematocrit (Bld) [Volume fraction] 45.2 % 37-47 [facility] Work Phone: Laboratory - Chemistry and C hemistry - challengeon 08-15-2021 CO2 [Moles/Vol] 26.0 mmol/L 21.0-32.0 [facility] Work Phone: [phone] Urea nitrogen/Creatinine [Mass ratio] 12.3 mg/mg 10-20 [facility] Work Phone: [phone] Laboratory - Hematology and Cell countson 08-15-2021 Erythrocyte distribution width (RBC) [Entitic vol] 51.7 fL 35.1-43.9 [facility] Work Phone: [phone] Erythrocyte distribution width (RBC) [Ratio] 15.1 % 11.6-14.6 [facility] Work Phone: [phone] Immature granulocytes/100 WBC (Bld) 0.800 % 0.0-0.9 [facility] Work Phone: [phone] Comment on above: IG% - Immature Granu locytes (promyelocytes, myelocytes and metamyelocytes) > 1% indicates that a LEFT SHIFT is Present. MCH (RBC) [Entitic mass] 30.0 pg 27.0-32.0 [facility] Work Phone: [phone] Nucleated RBC/100 WBC (Bld) [Ratio] 0 % 0-5 [facility] Work Phone: [phone] MCHC Auto (RBC) [Mass/Vol]on 08-15-2021 MCHC (RBC) [Mass/Vol] 32.3 g/dL 32-36 [facility] Work Phone: No Panel Informationon 08-15 Estimated GFR (MDRD) Amer 63 mL/min >60 [facility] Work Phone: [phone] Comment on above: GFR Calc Estimated GFR (MDRD) Non-Af Amer 52 mL/min >60 [facility] Work Phone: [phone] Comment on above: Non- GFR Calc Platelets bldon 08-15-2021 Platelets (Bld) [#/Vol] 286 10*3/uL 150-450 [facility] Work Phone: [phone] Serum or plasma calcium heather urement (mass/volume)on 08-15-2021 Calcium [Mass/Vol] 9.3 mg/dL 8.5-10.1 [facility] Work Phone: Serum or plasma creatinine m easurement (mass/volume)on 08-15-2021 Creatinine [Mass/Vol] 1.14 mg/dL 0.55-1.02 [facility] Work Phone: Comment on above: The validity of the calculated GFR & GFRAA in patients over 70 years has not been determined. Clinical correlation is essential. Serum or plasma urea nitroge n measurement (mass/volume)on 08-15-2021 Urea nitrogen [Mass/Vol] 14 mg/dL 09-25 [facility] Work Phone: Thin prep Papanicolaou smear with manual screeningon 08-15-2021 Thin prep Papanicolaou smear with manual screening 07-23 [facility] Work Phone: EMERGENCY REPORTon 1 EMERGENCY REPORT [facility] EMERGENCY RO[facility] REPORT NAME ACCOUNT SEX AGE ADMIT DISCHARGE PT MED. RECORD# NUMBER DATE DATE TYPE LEEANN [id number] F 55 09/22/20 2 RAMSES Rodríguez [id number] ROOM: 305NM DATE OF : 1965 DICTATING PHYSICIAN: Autumn [...] test not too long ago up at [place], but she was not sure if it [...] confused again. PCP is Dr. Wadsworth in [place]. Her paste mixer is Dr. Keys in [place]. PAST MEDICAL HISTORY: Hypertension, congestive heart failure, and coronary artery disease. 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 Skin is warm [...] includes post-infe (more content not included)... Normal [facility] EMERGENCY REPORT [facility] EMERGENCY RO[facility] REPORT NAME ACCOUNT SEX AGE ADMIT DISCHARGE PT MED. RECORD# NUMBER DATE DATE TYPE LEEANN [id number] F 55 09/22/20 2 RAMSES Rodríguez [id number] ROOM: 305MO DATE OF : 1965 DICTATING PHYSICIAN: [facility] I did [...] Autumn Edwards DO 09/22/20 21:34 JOB #: [id number] Transcribed By: [email or web address] 09/23/20 07:29 Electronically signed by: E-Sign: Dr. Autumn Edwards D.O. 09/24/20 04:03 Page 1 of 1 RAMSES BRADSHAW Emergency Room Report Normal [facility] CV ECHO COMPLETEon CV ECHO [place] [address] Patient: RAMSES BRADSHAW Phone#: : 1965 Age: 55 Gender: F Pt. Type: Out Account: [id number] Location: [facility][note 3] Ordering: NATALY VASQUEZ Exam Date: 09/23/2020/7:30 Family Phys: GEE MERCHANT Charge Code: [id number] Physician: [place] Order #: [id number] DLP Dose#: PROCEDURE: ECHOCARDIOGRAM WITH DOPPLER AND [...] BSA: 1.9 Weight (lbs.): 195 BP: 119/73 Slide Developer: GERALD M MODE 2D MEASUREMENTS AND CALCULATIONS: [...] 55 Gender: F Pt. Type: Out Account: [id number] Location: 010 Ordering: NATALY VASQUEZ Exam Date: 09/23/2020/7:30 Family Phys: GEE MERCHANT Charge Code: [id number] Physician: [place] Order #: [id number] DLP Dose#: MV E MAX marco antonio: [...] 55 Gender: F Pt. Type: Out Account: [id number] Location: 010 Ordering: NATALY VASQUEZ Exam Date: 09/23/2020/7:30 Family Phys: GEE MERCHANT Charge Code: [id number] Physician: [place] Order #: [id number] DLP Dose#: AORTIC ARCH: Aortic arch is [...] GALLOWAY MD on 09/23/2020 at 9:10 Normal [facility] DRUG SCREEN URINE MEDICon AMPHETAMINES Negative Normal [facility] Comment on above: Performed By: #### 2 [id number] #### [facility],[address] [place] [address] B-DIAZEPINES Negative Normal [facility] Comment on above: Performed By: #### 2 [id number] #### [facility],[address] [place], [place] [id number] BARBITURATES Negative Normal [facility] Comment on above: Performed By: #### 2 [id number] #### [facility],[address] [place] [address] COCAINE Negative Normal [facility] Comment on above: Performed By: #### 2 [id number] #### [facility],[address] [place] [address] DRUG SCREEN URINE MEDIC Normal [facility] Comment on above: Result Comment: DRUG SCREEN - URINE Performed By: #### 2 [id number] #### [facility],[address] [place] [address] METHADONE Negative Normal [facility] Comment on above: Performed By: #### 2 93401 #### [facility],[address] [place] [address] OPIATES Positive Normal [facility] Comment on above: Performed By: #### 2 35912 #### [facility],[address] [place] [address] 64778 PCP Negative Normal [facility] Comment on above: Performed By: #### 2 [id number] #### [facility],[address] [place] [address]1402 THC Negative Normal [facility] Comment on above: Result Comment: DARÍO ENTS RECEIVING PROTON PUMP INHIBITORS MAY DEMONSTRATE FALSE POSITIVE THC/CANNABINOID RESULTS. AN ALTERNATIVE CONFIRMATORY METHOD SHOULD BE CONSIDERED TO VERIFY POSITIVE RESULTS. Performed By: #### 2 [id number] #### [facility],[address] [place] [address] LIPID PROFILEon 09-23-2020 Cholesterol [Mass/Vol] 164 mg/dL Normal 0 - 240 [facility] Comment on above: Performed By: #### 2 [id number] ####[facility],[address] [place] [address]64 Cholesterol in HDL [Mass/Vol] 26 mg/dL Low 40 - 60 [facility] Comment on above: Performed By: #### 2 [id number] ####[facility],[address] [place] [address]9938 Cholesterol in LDL [Mass/Vol] 99 mg/dL Normal 0 - 129 [facility] Comment on above: Performed By: #### 2 [id number] ####[facility],[address] [place] [address]26 Cholesterol.total/Roseanna sterol in HDL [Mass ratio] 6.3 {ratio} High 0.0 - 5.0 [facility] Comment on above: Performed By: #### 2 65517 ####[facility],[address] [place] [address] 17134 Lipid 1996 panel Normal [facility] Comment on above: Result Comment: LIPI D PROFILE Performed By: #### 2 86661 ####[facility],[address] [place] [address] 78863 Triglyceride [Mass/Vol] 197 mg/dL High 0 - [address] [facility] Comment on above: Performed By: #### 2 53895 ####[facility],[address] [place], [place] [phone] NM [facility] NM CARDIAC STRESS (SPECT) W/[place] [address] Patient: RAMSES BRADSHAW Phone#: : 1965 Age: 55 Gender: F Pt. Type: Out Account: [id number] Location: [facility][note 3] Ordering: NATALY VASQUEZ Exam Date: 09/23/2020/6:22 Family Phys: GEE MERCHANT Charge Code: [id number] Physician: SAMUEL KEYS [place] Order #: [id number] DLP Dose#: PROCEDURE: CARDIAC STRESS SPECT WITH [...] 55 Gender: F Pt. Type: Out Account: [id number] Location: 010 Ordering: NATALY VASQUEZ Exam Date: 09/23/2020/6:22 Family Phys: GEE MERCHANT Charge Code: [id number] Physician: SAMUEL KEYS [place] Order #: [id number] [facility] Dose#: CONCLUSION: 1. Nuclear stress test is [...] GALLOWAY MD on 09/23/2020 at 12:58 Normal [facility] NM EXERCISE STRESS TEST (W/C ARDIAC STUDYon 09-23-2020 NM EXERCISE STRESS TEST (W/CARDIAC STUDY [place] [address] Patient: RAMSES BRADSHAW Phone#: : 1965 Age: 55 Gender: F Pt. Type: Out Account: [id number] Location: 010 [facility] Exam Date: 09/23/2020/6:22 Family Phys: GEE MERCHANT Charge Code: [id number] Physician: SAMUEL KEYS [place] Order #: [id number] DLP Dose#: PROCEDURE: ELECTROCARDIOGRAM STRESS TEST HISTORY: [...] 55 Gender: F Pt. Type: Out Account: [id number] Location: 010 Ordering: cartmiER Atonarp Exam Date: 09/23/2020/6:22 Family Phys: GEE MERCHANT Charge Code: [id number] Physician: SAMUEL KEYS [place] Order #: [id number] DLP Dose#: 1. Patient did not complain of any chest pain with regadenoson. She had nausea which improved during recovery 2. Stress EKG is negative for inducible ischemia 3. Nuclear images will be read and reported separately Dictated by: SAHARA GALLOWAY MD on 09/23/2020 at 10:50 Approved by: SAHARA GALLOWAY MD on 09/23/2020 at 11:03 Normal [facility] TROPONIN I, HIGH SENSITIVITY on 09-23-2020 HS TROPONIN 6.4 pg/mL Normal 0.0 - 51.4 [facility] Comment on above: Performed By: #### 2 15982 #### [facility],[address] [place], [place] [phone] URINALYSISon 09-23-2020 Amorphous NONE Normal [facility] Comment on above: Performed By: #### 2 98226 #### [facility],[address] [place] [address] Bacteria 2+ Normal [facility] Comment on above: Performed By: #### 2 24798 #### [facility],[address] [place] [address] Bilirubin Ql (U) Negative Normal NORMAL: NEGATIVE [facility] Comment on above: Performed By: #### 2 61696 #### [facility],[address] [place], [place] [phone] Casts SEE BELOW Normal [facility] Comment on above: Performed By: #### 2 47937 #### [facility],[address] [place] [address]09 Clarity (U) clear Normal NORMAL: CLEAR [facility] Comment on above: Performed By: #### 2 47983 #### [facility],[address] [place], [place] [phone] Color (U) harjeet Normal NORMAL: YELLOW [facility] Comment on above: Performed By: #### 2 02569 #### [facility],[address] [place] [address] 54798 Crystals LM Nom (Urine sed) NONE Normal [facility] Comment on above: Performed By: #### 2 54539 #### [facility],[address] [place], [place] [phone] Epi Cells MANY Normal [facility] Comment on above: Performed By: #### 2 35060 #### [facility],[address] [place] [address]74 Glucose Ql (U) NORM Normal NORMAL: NORMAL [facility] Comment on above: Performed By: #### 2 86351 #### [facility],[address] [place] [address] 16515 Hemoglobin Ql (U) Negative Normal NORMAL: NEGATIVE [facility] Comment on above: Performed By: #### 2 60173 #### [facility],[address] [place] [address] 46056 Hyaline RARE Normal NORMAL: NONE [facility] Comment on above: Performed By: #### 2 82554 #### [facility],[address] [place] [address] 24498 Ketone Negative Normal NORMAL: NEGATIVE [facility] Comment on above: Performed By: #### 2 22212 #### [facility],[address] [place] [address] 76056 Leukocytes 25 Abnormal NORMAL: NEGATIVE [facility] Comment on above: Performed By: #### 2 63986 #### [facility],[address] [place] [address] 31089 Mucous NONE Normal [facility] Comment on above: Performed By: #### 2 03239 #### [facility],[address] [place] [address] 94528 Nitrite Ql (U) Negative Normal NORMAL: NEGATIVE [facility] Comment on above: Performed By: #### 2 40059 #### [facility],[address] [place] [address] 97601 pH (U) 5 [pH] Normal NORMAL: 5.0-8.0 [facility] Comment on above: Performed By: #### 2 95677 #### [facility],[address] [place] [address] 53272 Protein Ql (U) 15 Abnormal NORMAL: NEGATIVE [facility] Comment on above: Performed By: #### 2 00941 #### [facility],[address] [place] [address] 96208 Rbc NONE Normal 0-3/hpf [facility] Comment on above: Performed By: #### 2 44581 #### [facility],[address] [place] [address] 41640 Sp Hayes 1.020 Normal NORMAL: 1.010-1.030 [facility] Comment on above: Performed By: #### 2 37377 #### [facility],[address] [place] [address] Specimen Type Void Normal [facility] Comment on above: Performed By: #### 2 00415 #### [facility],[address] [place] [address] Urinalysis dipstick W Reflex Microscopic panel (U) SEE BELOW Normal [facility] Comment on above: Result Comment: MICR OSCOPIC Performed By: #### 2 96178 #### [facility],[address] [place] [address] Urobilinog NORM Normal NORMAL: NORMAL [facility] Comment on above: Performed By: #### 2 04634 #### [facility],[address] [place], [place] [phone] Wbc 1-5 Normal 0-5/hpf [facility] Comment on above: Performed By: #### 2 47076 #### [facility],[address] [place] [address] Yeast 1+ Normal [facility] Comment on above: Performed By: #### 2 49416 #### [facility],[address] [place], [place] [phone] BMP with eGFRon 09-22-2020 AGE 55 years Normal [facility] Comment on above: Performed By: #### 2 72665 ####[facility],[address],[place] [address] Anion gap [Moles/Vol] 11 mmol/L Normal 10 - 20 [facility] Comment on above: Performed By: #### 2 92905 ####[facility],[address] [place] [address] 00716 BMP with eGFR Normal [facility] Comment on above: Result Comment: BASI C METABOLIC PANEL Performed By: #### 2 11900 ####[facility],[address] [place] [address] Calcium [Mass/Vol] 9.1 mg/dL Normal 8.5 - 10.1 [facility] Comment on above: Performed By: #### 2 38897 ####[facility],[address] [place] [address] Chloride [Moles/Vol] 102 mmol/L Normal 98 - 107 [facility] Comment on above: Performed By: #### 2 67922 ####[facility],[address] [place] [address] CO2 [Moles/Vol] 27.4 mmol/L Normal 21.0 - 32.0 [facility] Comment on above: Performed By: #### 2 03066 ####[facility],[address] [place], [place] [phone] Creatinine [Mass/Vol] 1.34 mg/dL High 0.55 - 1.02 [facility] Comment on above: Performed By: #### 2 93303 ####[facility],[address] [place], [place] [phone] eGFR 41 ML/MINUTE Low 60 - 999 [facility] Comment on above: Performed By: #### 2 26108 ####[facility],[address] [place] [address] 25501 eGFR(AA) 50 ML/MINUTE Low 60 - 999 [facility] Comment on above: Result Comment: ACCO RDING TO THE NATIONAL KIDNEY DISEASE EDUCATION PROGRAM(NKDE), A NORMAL eGFR IS A VALUE GREATER THAN OR EQUAL TO 60 ML/MIN/1.73 SQ METERS. CHRONIC KIDNEY DISEASE: <60mL/MIN/1.73 SQ METERS KIDNEY FAILURE: <15mL/MIN/1.73 SQ METERS THIS TEST SHOULD ONLY BE USED FOR PATIENTS 18 YEARS OF AGE AND OLDER. Performed By: #### 2 74225 ####[facility],[address] [place] [address] 91650 Glucose [Mass/Vol] 98 mg/dL Normal 74 - 106 [facility] Comment on above: Performed By: #### 2 23544 ####[facility],[address] [place] [address] 89110 Potassium [Moles/Vol] 3.6 mmol/L Normal 3.5 - 5.1 [facility] Comment on above: Performed By: #### 2 19557 ####[facility],[address] [place] [address] 08512 Sodium [Moles/Vol] 137 mmol/L Normal 136 - 145 [facility] Comment on above: Performed By: #### 2 45454 ####[facility],[address] [place] [address] 89513 Urea nitrogen [Mass/Vol] 20 mg/dL High 7 - 18 [facility] Comment on above: Performed By: #### 2 02662 ####[facility],[address] [place] [address] 53732 CBC + DIFFon 09-22-2020 Baso # 0.20 x10EE3/UL High 0.00 - 0.10 [facility] Comment on above: Performed By: #### 2 56609 ####[facility],[address] [place] [address] 68653 Basophils/100 WBC (Bld) 1.4 % Normal 0.0 - 2.0 [facility] Comment on above: Performed By: #### 2 61780 ####[facility],[address] [place] [address] 92467 CBC + DIFF Normal [facility] Comment on above: Result Comment: CBC- COMPLETE BLOOD COUNT Performed By: #### 2 39356 ####[address] [address] EO # 0.40 x10EE3/UL Normal 0.00 - 0.50 [facility] Comment on above: Performed By: #### 2 75643 ####[place] [address] Eosinophils/100 WBC (Bld) 2.8 % Normal 0.0 - 7.0 [facility] Comment on above: Performed By: #### 2 62896 ####[place] [address] Erythrocyte distribution width (RBC) [Ratio] 16.3 % High 12.0 - 15.6 [facility] Comment on above: Performed By: #### 2 02851 ####[place] [address] Hematocrit (Bld) [Volume fraction] 40.7 % Normal 34.0 - 46.0 [facility] Comment on above: Performed By: #### 2 14990 ####[place] [address] Hemoglobin (Bld) [Mass/Vol] 13.8 g/dL Normal 12.0 - 16.0 [facility] Comment on above: Performed By: #### 2 16165 ####[place] [address] Lymph # 3.20 x10EE3/UL High 0.80 - 2.80 [facility] Comment on above: Performed By: #### 2 83189 ####[place] [address] Lymphocytes/100 WBC (Bld) 23.4 % Normal 20.0 - 45.0 [facility] Comment on above: Performed By: #### 2 76007 ####[place] [address] MANUAL DIFF N/A Normal [facility] Comment on above: Performed By: #### 2 94313 ####[facility],[address] [place] [address] MCH (RBC) [Entitic mass] 29 pg Normal 27 - 33 [facility] Comment on above: Performed By: #### 2 12786 ####[facility],[address] [place] [address] MCHC 34 X10 3 Normal 32 - 36 [facility] Comment on above: Performed By: #### 2 86467 ####[facility],[address] [place] [address] MCV (RBC) [Entitic vol] 85 fL Normal 80 - [address] [facility] Comment on above: Performed By: #### 2 58315 ####[facility],[address] [place] [address] [place] # 1.00 x10EE3/UL Normal 0.20 - 1.00 [facility] Comment on above: Performed By: #### 2 38265 ####[facility],[address] [place] [address] MONOS % 7.4 % Normal 0.0 - 10.0 [facility] Comment on above: Performed By: #### 2 66473 ####[facility],[address] [place] [address] Morphology Nacho (Bld) [Interp] N/A Normal [facility] Comment on above: Result Comment: {CD] Performed By: #### 2 23178 ####[facility],[address] [place] [address] Neut # 8.90 x10EE3/UL High 1.50 - 7.10 [facility] Comment on above: Performed By: #### 2 64897 ####[facility],[address] [place] [address] Neutrophils/100 WBC (Bld) 65.0 % Normal 46.0 - 76.0 [facility] Comment on above: Performed By: #### 2 34657 ####[facility],[address] [place] [address] 32412 PLATELET 256 x10EE3/UL Normal 150 - 450 [facility] Comment on above: Performed By: #### 2 12797 ####[facility],[address] [place] [address] 53171 Platelet mean volume (Bld) [Entitic vol] 7.1 fL Normal 6.6 - 10.5 [facility] Comment on above: Result Comment: AUTO MATED DIFFERENTIAL Performed By: #### 2 49307 ####[facility],[address] [place] [address] 62706 RBC 4.79 x 10EE6/UL Normal 4.10 - 5.30 [facility] Comment on above: Performed By: #### 2 63314 ####[facility],[address] [place] [address] 36976 WBC 13.7 x 10EE3/UL High 4.5 - 10.8 [facility] Comment on above: Performed By: #### 2 69282 ####[facility],[address] [place] [address] 06408 CHEST 1 VIEWon 09-22-2020 CHEST 1 VIEW [place] [address] Patient: RAMSES BRADSHAW Phone#: : 1965 Age: 55 Gender: F Pt. Type: ER Account: [id number] Location: 052 Ordering: DR. MADISON HAYDEN Exam Date: 09/22/2020/18:04 Family Phys: GEE MERCHANT Charge Code: [id number] Physician: [place] Order #: [id number] DLP Dose#: PROCEDURE: X-RAY CHEST 1 VIEW COMPARISON: [facility], XR, CHEST 2 VIEWS, 09/28/2018, 12:21. [...] King MD on 09/22/2020 at 18:[address] [facility] [address] BRAIN W/O CONTRASTon 09-08 CT BRAIN W/O CONTRAST [address] [address] Patient: RAMSES BRADSHAW Phone#: : 1965 Age: 55 Gender: F Pt. Type: ER Account: [id number] Location: 052 Ordering: DR. MADISON HAYDEN Exam Date: 09/22/2020/18:11 Family Phys: GEE MERCHANT Charge Code: [id number] Physician: [place] Order #: [id number] [facility] Dose#: 57.50 PROCEDURE: CT BRAIN WITHOUT CONTRAST COMPARISON: [facility], CT, BRAIN W/O CON, 05/23/2018, 19:33. [facility], CT, BRAIN W/O CON, 06/27/2018, 18:21. [...] evaluation when the patient is clinically able. [address] [address] Patient: RAMSES BRADSHAW Phone#: : 1965 Age: 55 Gender: F Pt. Type: ER Account: [id number] Location: 052 Ordering: DR. MADISON HAYDEN Exam Date: 09/22/2020/18:11 Family Phys: GEE MERCHANT Charge Code: [id number] Physician: [place] Order #: [id number] DLP Dose#: 57.50 Dictated by: Nemo King MD on 09/22/2020 at 18:25 Approved by: Nemo King MD on 09/22/2020 at 18:35 [address] [facility] CT CERVICAL W/O CONTRASTon 0 09-22-2020 CT CERVICAL W/O CONTRAST [place] [address] Patient: RAMSES BRADSHAW Phone#: : 1965 Age: 55 Gender: F Pt. Type: ER Account: [id number] Location: 010 Ordering: AUTUMN EDWARDS Exam Date: 09/22/2020/20:43 Family Phys: GEE MERCHANT Charge Code: [id number] Physician: [place] Order #: [id number] DLP Dose#: 15.10 mGy PROCEDURE: CT CERVICAL WITHOUT CONTRAST COMPARISON: [facility], CT, CERVICAL W/O CON, 06/27/2018, 18:21. [...] 55 Gender: F Pt. Type: ER Account: [id number] Location: [facility][note 3] Ordering: AUTUMN EDWARDS Exam Date: 09/22/2020/20:43 Family Phys: GEE MERCHANT Charge Code: [id number] Physician: [place] Order #: [id number] DLP Dose#: 15.10 mGy Approved by: Jaqueline Potts MD on 09/23/2020 at 10:10 Normal [facility] NT-proBNPon 09-22-2020 Natriuretic peptide B (Bld) [Mass/Vol] 333 pg/mL High 0 - 125 [facility] Comment on above: Performed By: #### 2 32075 ####[facility],[address] [place] [address] TROPONIN I, HIGH SENSITIVITY on 09-22-2020 HS TROPONIN 7.0 pg/mL Normal 0.0 - 51.4 [facility] Comment on above: Performed By: #### 2 44803 #### [facility],[address] [facility] [address] NM GASTRIC EMPTYING STUDYon 05-05-2020 NM GASTRIC [...] Date: 05/05/2020 3:19:32 PM Ordering Provider:Alan Mack [facility] ([place]) Comprehensive Panelon 2018 ALP [Catalytic activity/Vol] 95 U/L Normal 45-117 [facility] Comment on above: Performed By: #### P 14 #### [place] [address] Bilirubin [Mass/Vol] 0.4 mg/dL Normal 0.2-1.0 [facility] Comment on above: Performed By: #### P 14 #### [facility] [address] [place], [place] [address] Protein [Mass/Vol] 7.3 g/dL Normal 6.4-8.2 [facility] Comment on above: Performed By: #### P 14 #### [facility] [address] [place], [place] [address] ALT [Catalytic activity/Vol] 21 U/L Normal 12-78 [facility] Comment on above: Performed By: #### P 14 #### [facility] [address] [place], [place] [address] AST [Catalytic activity/Vol] 12 U/L Low 15-37 [facility] Comment on above: Performed By: #### P 14 #### [facility] [address] [place], [place] [address] Creatinine [Mass/Vol] 0.92 mg/dL Normal 0.51-0.95 [facility] Comment on above: Performed By: #### P 14 #### [facility] [address] [place], [place] [address] Glucose [Mass/Vol] 84 mg/dL Normal 70-99 [facility] Comment on above: Performed By: #### P 14 #### [facility] [address] [place], [place] [address] Albumin [Mass/Vol] 3.6 g/dL Normal 3.4-5.0 [facility] Comment on above: Performed By: #### P 14 #### [facility] [address] [place], [place] [address] Anion gap [Moles/Vol] 9 mmol/L Normal 8-16 [facility] Comment on above: Performed By: #### P 14 #### [facility] [address] [place], [place] [address] Calcium [Mass/Vol] 8.9 mg/dL Normal 8.5-10.1 [facility] Comment on above: Performed By: #### P 14 #### [facility] [address] [place], [place] [address] CO2 [Moles/Vol] 28 mmol/L Normal 21-32 [facility] Comment on above: Performed By: #### P 14 #### [facility] [address] [place] [address] Urea nitrogen [Mass/Vol] 10 mg/dL Normal 7-18 [facility] Comment on above: Performed By: #### P 14 #### [facility] [address] [place] [address] Chloride [Moles/Vol] 104 mmol/L Normal 98-107 [facility] Comment on above: Performed By: #### P 14 #### [facility] [address] [place] [address] Potassium [Moles/Vol] 3.8 mmol/L Normal 3.5-5.1 [facility] Comment on above: Performed By: #### P 14 #### [facility] [address] [place] [address] Sodium [Moles/Vol] 137 mmol/L Normal 136-145 [facility] Comment on above: Performed By: #### P 14 #### [facility] [address] [place] [address] Hemogram/Diffon 10-11-2018 Abs Immature Grans 0.20 thou/cmm High 0.00-0.05 [facility] Comment on above: Performed By: #### C BCD1 #### [facility] [address] [place] [address] Abs Neut (ANC) 16.32 thou/cmm High 1.56-6.13 [facility] Comment on above: Performed By: #### C BCD1 #### [facility] [address] [place] [address] Abs. Baso 0.07 thou/cmm Normal 0.01-0.08 [facility] Comment on above: Performed By: #### C BCD1 #### [facility] [address] [place] [address] Abs. [place] 1.40 thou/cmm High 0.27-0.70 [facility] Comment on above: Performed By: #### C BCD1 #### [facility] [address] [place], [place] [address] Basophils/100 WBC (Bld) 0.3 % Normal [facility] Comment on above: Performed By: #### C BCD1 #### [facility] [address] [place], [place] [address] Eosinophils (Bld) [#/Vol] 0.27 thou/cmm Normal 0.00-0.31 [facility] Comment on above: Performed By: #### C BCD1 #### [facility] [address] [place], [place] [address] Eosinophils/100 WBC (Bld) 1.2 % Normal [facility] Comment on above: Performed By: #### C BCD1 #### [facility] [address] [place], [place] [address] Immature Grans 0.90 % Normal [facility] Comment on above: Performed By: #### C BCD1 #### [facility] [address] [place], [place] [address] Lymphocytes (Bld) [#/Vol] 3.90 thou/cmm High 1.18-3.74 [facility] Comment on above: Performed By: #### C BCD1 #### [facility] [address] [place], [place] [address] Lymphocytes/100 WBC (Bld) 17.6 % Normal [facility] Comment on above: Performed By: #### C BCD1 #### [facility] [address] [place], [place] [address] Monocytes/100 WBC (Bld) 6.3 % Normal [facility] Comment on above: Performed By: #### C BCD1 #### [facility] [address] [place], [place] [address] Seg Neutrophil 73.7 % Normal [facility] Comment on above: Performed By: #### C BCD1 #### [facility] [address] [place], [place] [address] Erythrocyte distribution width (RBC) [Ratio] 14.2 % Normal 11.7-14.4 [facility] Comment on above: Performed By: #### C BCD1 #### [facility] [address] [place], [place] [address] Hematocrit (Bld) [Volume fraction] 42.1 % Normal 34.1-44.9 [facility] Comment on above: Performed By: #### C BCD1 #### [facility] [address] [place] [address] Hemoglobin (Bld) [Mass/Vol] 13.6 g/dL Normal 11.2-15.7 [facility] Comment on above: Performed By: #### C BCD1 #### [facility] [address] [place] [address] MCH (RBC) [Entitic mass] 30.8 pg Normal 25.6-32.2 [facility] Comment on above: Performed By: #### C BCD1 #### [facility] [address] [place] [address] MCHC (RBC) [Mass/Vol] 32.3 % Normal 31.6-34.8 [facility] Comment on above: Performed By: #### C BCD1 #### [facility] [address] [place] [address] MCV (RBC) [Entitic vol] 95.5 fL High 79.4-94.8 [facility] Comment on above: Performed By: #### C BCD1 #### [facility] [address] [place] [address] Platelet mean volume (Bld) [Entitic vol] 8.8 fL Low 9.4-12.3 [facility] Comment on above: Performed By: #### C BCD1 #### [facility] [address] [place] [address] Platelets (Bld) [#/Vol] 231 thou/cmm Normal 182-369 [facility] Comment on above: Performed By: #### C BCD1 #### [facility] [address] [place] [address] RBC (Bld) [#/Vol] 4.41 mil/cmm Normal 3.93-5.22 [facility] Comment on above: Performed By: #### C BCD1 #### [facility] [address] [place] [address] RDW SD 49.8 fl High 36.4-46.3 [facility] Comment on above: Performed By: #### C BCD1 #### [place] [address] WBC (Bld) [#/Vol] 22.15 thou/cmm High 3.98-10.04 [facility] Comment on above: Performed By: #### C BCD1 #### [place] [address] Lipase Bloodon 10-11-2018 Lipase Blood 51 U/L Low 73-393 [facility] Comment on above: Performed By: #### L IP #### [place] [address] MDRD GFRon 10-11-2018 GFR/1.73 sq M predicted among non-blacks MDRD (S/P/Bld) [Vol rate/Area] mL/min/{1.73_m2} Normal >60mL/min/1 .73m2 [facility] Comment on above: Result Comment: If t he patient is , multiply the result by 1.210. Performed By: #### G FR #### [place] [address] Urinalysis Routineon 019 Bacteria LM.HPF (Urine sed) [#/Area] NONE Normal None [facility] Comment on above: Performed By: #### U RIN2 #### [place] [address] Ep Cells Urine 0.4 /hpf Normal 0.0-5.0 [facility] Comment on above: Performed By: #### U RIN2 #### [place] [address] Hyaline Cast 0.3 /lpf Normal 0.0-1.0 [facility] Comment on above: Performed By: #### U RIN2 #### [place] [address] RBC LM.HPF (Urine sed) [#/Area] 2.4 /[HPF] Normal 0.0-5.0 [facility] Comment on above: Performed By: #### U RIN2 #### [facility] [address] [place] [address] WBC LM.HPF (Urine sed) [#/Area] 0.5 /[HPF] Normal 0.0-5.0 [facility] Comment on above: Performed By: #### U RIN2 #### [facility] [address] [place] [address] Appearance (U) CLEAR Normal [facility] Comment on above: Performed By: #### U RIN2 #### [facility] [address] [place] [address] Bilirubin (U) [Mass/Vol] Negative Normal Negative [facility] Comment on above: Performed By: #### U RIN2 #### [facility] [address] [place] [address] Color (U) YELLOW Normal [facility] Comment on above: Performed By: #### U RIN2 #### [facility] [address] [address] Glucose Ql (U) Negative Normal Negative [facility] Comment on above: Performed By: #### U RIN2 #### [facility] [address] [address] Hemoglobin,Urine Negative Normal Negative [facility] Comment on above: Performed By: #### U RIN2 #### [facility] [address] [address] Ketone Urine Negative Normal Negative [facility] Comment on above: Performed By: #### U RIN2 #### [facility] [address] [address] Leukocytes Esterase Negative Normal Negative [facility] Comment on above: Performed By: #### U RIN2 #### [facility] [address] [address] Nitrites Urine Negative Normal Negative [facility] Comment on above: Performed By: #### U RIN2 #### [facility] [address] [address] pH (U) 6.0 [pH] Normal 5.0-8.0 [facility] Comment on above: Performed By: #### U RIN2 #### [facility] [address] [address] Protein (U) [Mass/Vol] Negative Normal Negative [facility] Comment on above: Performed By: #### U RIN2 #### [facility] [address] [address] Specific Hayes, Ur 1.018 Normal 1.005-1.030 [facility] Comment on above: Performed By: #### U RIN2 #### [facility] [address] [address] Urobilinogen,Ur 0.2 EU/dL Normal 0.2-1.0 [facility] Comment on above: Performed By: #### U RIN2 #### [facility] [address] [address] ED NOTEon 09-04-2018 ED NOTE HNO ID: [id number] Author: Priya Serrano RN Service: ? Author [...] DATE: September 07, 2018 TIME: 3:56 PM [facility] ED NOTE HNO ID: [id number] Author: Davina SalcidoRnDelma Abreu RN Service: ? Author Type: Registered [...] paperwork. Patient ambulated out on her own. [facility] ED NOTE HNO ID: [id number] Author: Davina Abreu RN Service: ? Author [...] All medication was wittiness ed being taken. [facility] ED NOTE HNO ID: [id number] Author: Davina Demarco) AKIKO Abreu Service: ? Author Type: Registered Nurse Type: [...] WC on her own and into bed. 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 pacemaker checked at [facility] - Sick sinus syndrome (HCC) - Sleep apnea uses cpap at night PAST SURGICAL HISTORY Procedure Laterality Date - APPENDECTOMY - CARPAL TUNNEL left - HYSTERECTOMY HX - LAPAROSCOPY DIAGNOSTIC - PACEMAKER (PM) 2003 - PAST SURGICAL HISTORY OF lumbar pain injections. - MS ANESTH,LUMBAR SPINE,CORD SURGERY 02/07/2016 L4-L5 fusion; [facility] - REVISE ULNAR NERVE AT [...] did not help her. She's been taking ladd-rgu-dlputrz medicines with little relief. No history of [...] previous surgeon she states they are at [facility]. I also discussed with her that she [...] stable. SIGNATURE: NATALIE Broderick (Pa) 09/04/18 1517 [facility] Lab Report: Gastrin, Serumon 04-15-2017 gastrin, serum 266 pg/mL High 0-115 [facility] Work Phone: Lab Report: CBC W/Diff, Auto matedon 04-12-2017 Basophils/100 leukocytes 0.4 % Invalid Interpretation Code 0-1 [facility] Surgical [facility] Work Phone: Eosinophils/100 leukocytes 2.2 % Invalid Interpretation Code 0-[address] [place] Work Phone: Erythrocytes (RBC) 5.05 10*6/uL Invalid Interpretation Code 4.2-5.[address] [place] Work Phone: Hematocrit (HCT) 45.7 % Invalid Interpretation Code 37-47 [facility] Surgical [facility] Work Phone: Hemoglobin (HGB) 15.4 g/dL High 12.0-15.0 [facility] Work Phone: immature granulocytes, percentage of total cells, blood 0.400 % Invalid Interpretation Code 0.0-0.[address] [place] Work Phone: Lymphocytes 3.50 X10 3/UL Invalid Interpretation Code 0.83-4.[address] [place] Work Phone: Lymphocytes/100 leukocytes 28.8 % Invalid Interpretation Code 19-[address] [place] Work Phone: MCH 30.5 pg Invalid Interpretation Code 27.0-32.[address] [place] Work Phone: MCHC 33.7 G/GL Invalid Interpretation Code 32-36 [place] Work Phone: MCV 90.5 fL Invalid Interpretation Code 81-[address] [place] Work Phone: Monocytes/100 leukocytes 6.8 % Invalid Interpretation Code 0-[address] [place] Work Phone: [phone] neutrophil count, blood 7.5 X10 3/UL Invalid Interpretation Code 2.0-7.[address] [place] Work Phone: [phone] Neutrophils/100 leukocytes 61.4 % Invalid Interpretation Code 47-70 [facility] Surgical [facility] Work Phone: [phone] Platelets 256 10*3/mm3 Invalid Interpretation Code 150-450 [facility] Surgical [facility] Work Phone: PMV by North 10.7 fL Invalid Interpretation Code 6.2-12.[address] [place] Work Phone: RDW-CA 13.2 % Invalid Interpretation Code 11.6-14.6 [facility] Work Phone: [phone] red blood cell distribution width, size density 43.4 fL Invalid Interpretation Code 35.1-43.9 [facility] Surgical [facility] Work Phone: WBC (Leukocytes) 12.2 10*3/uL High 4.4-11.0 [facility] Work Phone: Lab Report: Comprehensive Ca tabolic Profilon 04-12-2017 Alanine aminotransferase (ALT) 31 U/L Invalid Interpretation Code 13-56 [facility] Surgical [facility] Work Phone: [phone] Albumin 3.9 g/dL Invalid Interpretation Code 3.2-5.0 [facility] Surgical [facility] Work Phone: [phone] Albumin/Globulin Ratio 1 {ratio} Invalid Interpretation Code 0.9-2.4 [facility] Surgical [facility] Work Phone: [phone] Alkaline phosphatase (ALP) 103 U/L Invalid Interpretation Code 45-117 [facility] Surgical [facility] Work Phone: Anion gap 9 mmol/L Invalid Interpretation Code 5-15 [facility] Surgical [facility] Work Phone: [phone] Aspartate aminotransferase (AST) 20 U/L Invalid Interpretation Code 15-37 [facility] Surgical [facility] Work Phone: Bilirubin (total) 0.20 mg/dL Invalid Interpretation Code 0.20-1.00 [facility] Surgical [facility] Work Phone: BUN/Creatinine Ratio 13.7 RATIO Invalid Interpretation Code 10-20 [facility] Work Phone: [phone] Calcium 9.7 mg/dL Invalid Interpretation Code 8.5-10.1 [facility] Surgical [facility] Work Phone: Chloride 108 mmol/L High 98-107 [facility] Surgical [facility] Work Phone: [phone] CO2 26.0 mmol/L Invalid Interpretation Code 21.0-32.0 [facility] Surgical [facility] Work Phone: Creatinine 0.88 mg/dL Invalid Interpretation Code 0.55-1.02 [facility] Work Phone: eGFR (non-black) 72 mL/min/{1.73_m2} Invalid Interpretation Code >[address] [place] Work Phone: eGFR (non-black) 87 mL/min/{1.73_m2} Invalid Interpretation Code >[address] [place] Work Phone: [phone] Globulin 4.0 g/dL Invalid Interpretation Code 2.2-4.[address] [place] Work Phone: [phone] Glucose 95 mg/dL Invalid Interpretation Code 74-[address] [place] Work Phone: [phone] Potassium 3.5 mmol/L Invalid Interpretation Code 3.5-5.[address] [place] Work Phone: [phone] Protein 7.9 g/dL Invalid Interpretation Code 6.4-8.[address] [place] Work Phone: [phone] Sodium 143 mmol/L Invalid Interpretation Code 136-[address] [place] Work Phone: Urea nitrogen 12 mg/dL Invalid Interpretation Code 7-[address] [place] [place] Work Phone: Lab Report: BMPon 03-30-2013 CO2 5 mmol/L Normal 5-[address] [place] [place] Work Phone: Lab Report: PTon 03-30-2013 INR in blood by coagulation 1.0 {INR} Normal [place] Work Phone: prothrombin time, actual/normal, ratio 13.0 SECONDS Normal 11.9-14.4 [facility] Work Phone: Lab Report: UAon 03-30-2013 specific gravity, urine 1.015 Normal 1.002-1.[address] [place] Work Phone: Culture, urine Bacteria identified Cx Nom (U) Lactobacillus sp. [facility] Work Phone: Vital Signs Date Time Vital Sign Value Performing Clinician Julia louis 10-29-2024 09:47-0400 Body height 157.[address] Charla Wadsworth MD Work Phone: [facility] 10-29-2024 09:47-0400 Body mass index (BMI) [Ratio] 41.7 kg/m2 Dr. Charla Wadsworth MD Work Phone: [facility] 10-29-2024 09:47-0400 Body weight 103.[address] Charla Wadsworth MD Work Phone: [facility] 10-29-2024 09:47-0400 Diastolic blood pressure 73 mm[Hg] Dr. Charla Wadsworth MD Work Phone: [facility] 10-29-2024 09:47-0400 Heart rate 60 /min Dr. Charla Wadsworth MD Work Phone: [facility] 10-29-2024 09:47-0400 Respiratory rate 16 /min Dr. Charla Wadsworth MD Work Phone: [facility] 10-29-2024 09:47-0400 Systolic blood pressure 111 mm[Hg] Dr. Charla Wadsworth MD Work Phone: [facility] 10-22-2024 20:33-0400 Body temperature 98.6 [degF] Dr. Charla Wadsworth MD Work Phone: [facility] 10-22-2024 20:33-0400 Diastolic blood pressure 65 mm[Hg] Dr. Charla Wadsworth MD Work Phone: [facility] 10-22-2024 20:33-0400 Heart rate 60 /min Dr. Charla Wadsworth MD Work Phone: [facility] 10-22-2024 20:33-0400 Respiratory rate 18 /min Dr. Charla Wadsworth MD Work Phone: [facility] 10-22-2024 20:33-0400 SaO2% (BldA) [Mass fraction] 95 % Dr. Charla Wadsworth MD Work Phone: [facility] 10-22-2024 20:33-0400 Systolic blood pressure 105 mm[Hg] Dr. Charla Wadsworth MD Work Phone: [facility] 10-22-2024 16:46-0400 Body mass index (BMI) [Ratio] 42.1 kg/m2 Dr. Charla Wadsworth MD Work Phone: [facility] 10-22-2024 16:46-0400 Body weight 104.[address] Charla Wadsworth MD Work Phone: [facility] 10-22-2024 16:43-0400 Body height 157.[address] Charla Wadsworth MD Work Phone: [facility] 10-21-2024 10:28-0400 Body height 157.[address] Charla Wadsworth MD Work Phone: [facility] 10-21-2024 10:28-0400 Body mass index (BMI) [Ratio] 41.5 kg/m2 Dr. Charla Wadsworth MD Work Phone: [facility] 10-21-2024 10:28-0400 Body temperature 97.8 [degF] Dr. Charla Wadsworth MD Work Phone: [facility] 10-21-2024 10:28-0400 Body weight 102.[address] Charla Wadsworth MD Work Phone: [facility] 10-21-2024 10:28-0400 Diastolic blood pressure 50 mm[Hg] Dr. Charla Wadsworth MD Work Phone: [facility] 10-21-2024 10:28-0400 Heart rate 60 /min Dr. Charla Wadsworth MD Work Phone: [facility] 10-21-2024 10:28-0400 Respiratory rate 18 /min Dr. Charla Wadsworth MD Work Phone: [facility] 10-21-2024 10:28-0400 SaO2% (BldA) [Mass fraction] 94 % Dr. Charla Wadsworth MD Work Phone: [facility] 10-21-2024 10:28-0400 Systolic blood pressure 98 mm[Hg] Dr. Charla Wadsworth MD Work Phone: [facility] 10-16-2024 22:01-0400 Body temperature 98.1 [degF] Dr. Charla Wadsworth MD Work Phone: [facility] 10-16-2024 22:01-0400 Diastolic blood pressure 77 mm[Hg] Dr. Charla Wadsworth MD Work Phone: [facility] 10-16-2024 22:01-0400 Heart rate 70 /min Dr. Charla Wadsworth MD Work Phone: [facility] 10-16-2024 22:01-0400 Respiratory rate 17 /min Dr. Charla Wadsworth MD Work Phone: [facility] 10-16-2024 22:01-0400 SaO2% (BldA) [Mass fraction] 94 % Dr. Charla Wadsworth MD Work Phone: [facility] 10-16-2024 22:01-0400 Systolic blood pressure 120 mm[Hg] Dr. Charla Wadsworth MD Work Phone: [facility] 10-16-2024 18:06-0400 Body height 157.[address] Charla Wadsworth MD Work Phone: [facility] 10-16-2024 18:06-0400 Body mass index (BMI) [Ratio] 40.6 kg/m2 Dr. Charla Wadsworth MD Work Phone: [facility] 10-16-2024 18:06-0400 Body weight 100.[address] Charla Wadsworth MD Work Phone: [facility] 10-10-2024 19:00-0400 Diastolic blood pressure 81 mm[Hg] Dr. Charla Wadsworth MD Work Phone: [facility] 10-10-2024 19:00-0400 Heart rate 73 /min Dr. Charla Wadsworth MD Work Phone: [facility] 10-10-2024 19:00-0400 Respiratory rate 14 /min Dr. Charla Wadswroth MD Work Phone: [facility] 10-10-2024 19:00-0400 SaO2% (BldA) [Mass fraction] 98 % Dr. Charla Wadsworth MD Work Phone: [facility] 10-10-2024 19:00-0400 Systolic blood pressure 126 mm[Hg] Dr. Charla Wadsworth MD Work Phone: [facility] 10-10-2024 18:48-0400 Body temperature 98 [degF] Dr. Charla Wadsworth MD Work Phone: [facility] 10-10-2024 15:56-0400 Body height 157.[address] Charla Wadsworth MD Work Phone: [facility] 10-10-2024 15:56-0400 Body mass index (BMI) [Ratio] 42.3 kg/m2 Dr. Charla Wadsworth MD Work Phone: [facility] 10-10-2024 15:56-0400 Body weight [address] Charla Wadsworth MD Work Phone: [facility] 10-02-2024 13:23-0400 Body height 157.[address] Charla Wadsworth MD Work Phone: [facility] 10-02-2024 13:23-0400 Body mass index (BMI) [Ratio] 41.3 kg/m2 Dr. Charla Wadsworth MD Work Phone: [facility] 10-02-2024 13:23-0400 Body temperature 96.4 [degF] Dr. Charla Wadsworth MD Work Phone: [facility] 10-02-2024 13:23-0400 Body weight 102.[address] Charla Wadsworth MD Work Phone: [facility] 10-02-2024 13:23-0400 Diastolic blood pressure 66 mm[Hg] Dr. Charla Wadsworth MD Work Phone: [facility] 10-02-2024 13:23-0400 Heart rate 67 /min Dr. Charla Wadsworth MD Work Phone: [facility] 10-02-2024 13:23-0400 Respiratory rate 16 /min Dr. Charla Wadsworth MD Work Phone: [facility] 10-02-2024 13:23-0400 SaO2% (BldA) [Mass fraction] 91 % Dr. Charla Wadsworth MD Work Phone: [facility] 10-02-2024 13:23-0400 Systolic blood pressure 102 mm[Hg] Dr. Charla Wadsworth MD Work Phone: [facility] 08-05-2024 09:25-0400 Body height 157.5 cm Butch Mays MD Work Phone: [facility] 08-05-2024 09:25-0400 Body mass index (BMI) [Ratio] 40.97 kg/m2 Butch Mays MD Work Phone: [facility] 08-05-2024 09:25-0400 Body weight 101.61 kg Butch Mays MD Work Phone: [facility] 08-04-2024 14:55-0400 Diastolic blood pressure 72 mm[Hg] Mri Bore/1.5t) [facility] 08-04-2024 14:55-0400 Heart rate 75 /min Mri Bore/1.5t) [facility] 08-04-2024 14:55-0400 Respiratory rate 16 /min Mri Bore/1.5t) [facility] 08-04-2024 14:55-0400 SaO2% (BldA) [Mass fraction] 94 % Mri Bore/1.5t) [facility] 08-04-2024 14:55-0400 Systolic blood pressure 119 mm[Hg] Mri Bore/1.5t) [facility] 07-23-2024 00:03-0400 Body temperature 97.9 [degF] Dr. Charla Wadsworth MD Work Phone: [facility] 07-23-2024 00:03-0400 Diastolic blood pressure 81 mm[Hg] Dr. Charla Wadsworth MD Work Phone: [facility] 07-23-2024 00:03-0400 Heart rate 61 /min Dr. Charla Wadsworth MD Work Phone: [facility] 07-23-2024 00:03-0400 Respiratory rate 18 /min Dr. Charla Wadsworth MD Work Phone: [facility] 07-23-2024 00:03-0400 SaO2% (BldA) [Mass fraction] 93 % Dr. Charla Wadsworth MD Work Phone: [facility] 07-23-2024 00:03-0400 Systolic blood pressure 130 mm[Hg] Dr. Charla Wadsworth MD Work Phone: [facility] 07-22-2024 20:15-0400 Body height 157.[address] Charla Wadsworth MD Work Phone: [facility] 07-22-2024 20:15-0400 Body mass index (BMI) [Ratio] 19.7 kg/m2 Dr. Charla Wadsworth MD Work Phone: [facility] 07-22-2024 20:15-0400 Body weight 48.[address] Charla Wadsworth MD Work Phone: [facility] 07-22-2024 10:08-0400 Body temperature 97.5 [degF] Dr. Charla Wadsworth MD Work Phone: [facility] 07-22-2024 10:08-0400 Diastolic blood pressure 68 mm[Hg] Dr. Charla Wadsworth MD Work Phone: [facility] 07-22-2024 10:08-0400 Heart rate 60 /min Dr. Charla Wadsworth MD Work Phone: [facility] 07-22-2024 10:08-0400 Respiratory rate 14 /min Dr. Charla Wadsworth MD Work Phone: [facility] 07-22-2024 10:08-0400 SaO2% (BldA) [Mass fraction] 96 % Dr. Charla Wadsworth MD Work Phone: [facility] 07-22-2024 10:08-0400 Systolic blood pressure 110 mm[Hg] Dr. Charla Wadsworth MD Work Phone: [facility] 07-02-2024 23:25-0400 Body temperature 98.2 [degF] Dr. Charla Wadsworth MD Work Phone: [facility] 07-02-2024 23:25-0400 Diastolic blood pressure 68 mm[Hg] Dr. Charla Wadsworth MD Work Phone: [facility] 07-02-2024 23:25-0400 Heart rate 72 /min Dr. Charla Wadsworth MD Work Phone: [facility] 07-02-2024 23:25-0400 Respiratory rate 14 /min Dr. Charla Wadsworth MD Work Phone: [facility] 07-02-2024 23:25-0400 SaO2% (BldA) [Mass fraction] 96 % Dr. Charla Wadsworth MD Work Phone: [facility] 07-02-2024 23:25-0400 Systolic blood pressure 116 mm[Hg] Dr. Charla Wadsworth MD Work Phone: [facility] 07-02-2024 14:28-0400 Body height 157.[address] Charla Wadsworth MD Work Phone: [facility] 07-02-2024 14:28-0400 Body mass index (BMI) [Ratio] 42.6 kg/m2 Dr. Charla Wadsworth MD Work Phone: [facility] 07-02-2024 14:28-0400 Body weight 105.[address] Charla Wadsworth MD Work Phone: [facility] 06-29-2024 19:11-0400 Body temperature 98.1 [degF] Dr. Charla Wadsworth MD Work Phone: [facility] 06-29-2024 19:11-0400 Diastolic blood pressure 68 mm[Hg] Dr. Charla Wadsworth MD Work Phone: [facility] 06-29-2024 19:11-0400 Heart rate 75 /min Dr. Charla Wadsworth MD Work Phone: [facility] 06-29-2024 19:11-0400 Respiratory rate 18 /min Dr. Charla Wadsworth MD Work Phone: [facility] 06-29-2024 19:11-0400 SaO2% (BldA) [Mass fraction] 97 % Dr. Charla Wadsworth MD Work Phone: [facility] 06-29-2024 19:11-0400 Systolic blood pressure 104 mm[Hg] Dr. Charla Wadsworth MD Work Phone: [facility] 06-29-2024 17:28-0400 Body height 157.[address] Charla Wadsworth MD Work Phone: [facility] 06-29-2024 17:28-0400 Body mass index (BMI) [Ratio] 43.8 kg/m2 Dr. Charla Wadsworth MD Work Phone: [facility] 06-29-2024 17:28-0400 Body weight 108.[address] Charla Wadsworth MD Work Phone: [facility] 06-13-2024 19:51-0400 Body temperature 97.2 [degF] Dr. Charla Wadsworth MD Work Phone: [facility] 06-13-2024 19:51-0400 Diastolic blood pressure 79 mm[Hg] Dr. Charla Wadsworth MD Work Phone: [facility] 06-13-2024 19:51-0400 Heart rate 68 /min Dr. Charla Wadsworth MD Work Phone: [facility] 06-13-2024 19:51-0400 Respiratory rate 25 /min Dr. Charla Wadsworth MD Work Phone: [facility] 06-13-2024 19:51-0400 SaO2% (BldA) [Mass fraction] 94 % Dr. Charla Wadsworth MD Work Phone: [facility] 06-13-2024 19:51-0400 Systolic blood pressure 144 mm[Hg] Dr. Charla Wadsworth MD Work Phone: [facility] 06-13-2024 18:31-0400 Body height 157.[address] Charla Wadsworth MD Work Phone: [facility] 06-13-2024 18:31-0400 Body mass index (BMI) [Ratio] 41.8 kg/m2 Dr. Charla Wadsworth MD Work Phone: [facility] 06-13-2024 18:31-0400 Body weight 103.[address] Charla Wadsworth MD Work Phone: [facility] 06-11-2024 07:46-0400 Body mass index (BMI) [Ratio] 36.6 kg/m2 Dr. Charla Wadsworth MD Work Phone: [facility] 06-11-2024 07:46-0400 Body weight 90.[address] Charla Wadsworth MD Work Phone: [facility] 06-11-2024 07:46-0400 Diastolic blood pressure 66 mm[Hg] Dr. Charla Wadsworth MD Work Phone: [facility] 06-11-2024 07:46-0400 Heart rate 60 /min Dr. Charla Wadsworth MD Work Phone: [facility] 06-11-2024 07:46-0400 Respiratory rate 18 /min Dr. Charla Wdasworth MD Work Phone: [facility] 06-11-2024 07:46-0400 Systolic blood pressure 102 mm[Hg] Dr. Charla Wadsworth MD Work Phone: [facility] 05-21-2024 23:25-0400 Body temperature 98 [degF] Dr. Charla Wadsworth MD Work Phone: [facility] 05-21-2024 23:25-0400 Diastolic blood pressure 74 mm[Hg] Dr. Charla Wadsworth MD Work Phone: [facility] 05-21-2024 23:25-0400 Heart rate 68 /min Dr. Charla Wadsworth MD Work Phone: [facility] [facility] 05-21-2024 23:25-0400 Respiratory rate 17 /min Dr. Charla Wadsworth MD Work Phone: [facility] 05-21-2024 23:25-0400 SaO2% (BldA) [Mass fraction] 97 % Dr. Charla Wadsworth MD Work Phone: [facility] 05-21-2024 23:25-0400 Systolic blood pressure 130 mm[Hg] Dr. Charla Wadsworth MD Work Phone: [facility] 05-21-2024 19:24-0400 Body height 157.[address] Charla Wadsworth MD Work Phone: [facility] 05-13-2024 03:00-0500 Diastolic blood pressure 67 mm[Hg] Dr. Charla Wadsworth MD Work Phone: [facility] 05-13-2024 03:00-0500 Heart rate 61 /min Dr. Charla Wadsworth MD Work Phone: [facility] 05-13-2024 03:00-0500 Respiratory rate 16 /min Dr. Charla Wadsworth MD Work Phone: [facility] 05-13-2024 03:00-0500 SaO2% (BldA) [Mass fraction] 96 % Dr. Charla Wadsworth MD Work Phone: [facility] 05-13-2024 03:00-0500 Systolic blood pressure 122 mm[Hg] Dr. Charla Wadsworth MD Work Phone: [facility] 05-13-2024 01:00-0500 Body temperature 98.2 [degF] Dr. Charla Wadsworth MD Work Phone: [facility] 05-12-2024 22:20-0500 Body mass index (BMI) [Ratio] 43.2 kg/m2 Dr. Charla Wadsworth MD Work Phone: [facility] 05-12-2024 22:20-0500 Body weight 107.[address] Charla Wadsworth MD Work Phone: [facility] 05-04-2024 15:55-0500 Body temperature 98.4 [degF] Dr. Charla Wadsworth MD Work Phone: [facility] 05-04-2024 15:55-0500 Diastolic blood pressure 71 mm[Hg] Dr. Charla Wadsworth MD Work Phone: [facility] 05-04-2024 15:55-0500 Heart rate 65 /min Dr. Charla Wadsworth MD Work Phone: [facility] 05-04-2024 15:55-0500 Respiratory rate 16 /min Dr. Charla Wadsworth MD Work Phone: [facility] 05-04-2024 15:55-0500 SaO2% (BldA) [Mass fraction] 98 % Dr. Charla Wadsworth MD Work Phone: [facility] 05-04-2024 15:55-0500 Systolic blood pressure 109 mm[Hg] Dr. Charla Wadsworth MD Work Phone: [facility] 05-04-2024 14:30-0500 Body mass index (BMI) [Ratio] 40.8 kg/m2 Dr. Charla Wadsworth MD Work Phone: [facility] 05-04-2024 14:30-0500 Body weight 101.[address] Charla Wadsworth MD Work Phone: [facility] 04-20-2024 10:21-0500 Body temperature 98 [degF] Dr. Charla Wadsworth MD Work Phone: [facility] 04-20-2024 10:21-0500 Diastolic blood pressure 78 mm[Hg] Dr. Charla Wadsworth MD Work Phone: [facility] 04-20-2024 10:21-0500 Heart rate 62 /min Dr. Charla Wadsworth MD Work Phone: [facility] 04-20-2024 10:21-0500 Respiratory rate 17 /min Dr. Charla Wadsworth MD Work Phone: [facility] 04-20-2024 10:21-0500 SaO2% (BldA) [Mass fraction] 95 % Dr. Charla Wadsworth MD Work Phone: [facility] 04-20-2024 10:21-0500 Systolic blood pressure 122 mm[Hg] Dr. Charla Wadsworth MD Work Phone: [facility] 04-15-2024 19:43-0500 Body mass index (BMI) [Ratio] 40.3 kg/m2 Dr. Charla Wadwsorth MD Work Phone: [facility] 04-15-2024 19:43-0500 Body weight [address] Charla Wadsworth MD Work Phone: [facility] 04-15-2024 17:28-0500 Body temperature 97.9 [degF] Dr. Charla Wadsworth MD Work Phone: [facility] 04-15-2024 17:28-0500 Diastolic blood pressure 88 mm[Hg] Dr. Charla Wadsworth MD Work Phone: [facility] 04-15-2024 17:28-0500 Heart rate 72 /min Dr. Charla Wadsworth MD Work Phone: [facility] 04-15-2024 17:28-0500 Respiratory rate 18 /min Dr. Charla Wadsworth MD Work Phone: [facility] 04-15-2024 17:28-0500 SaO2% (BldA) [Mass fraction] 99 % Dr. Charla Wadsworth MD Work Phone: [facility] 04-15-2024 17:28-0500 Systolic blood pressure 135 mm[Hg] Dr. Charla Wadsworth MD Work Phone: [facility] 04-05-2024 10:05-0500 Inhaled oxygen flow rate 2 L/min Dr. Charla Wadsworth MD Work Phone: [facility] 04-05-2024 10:05-0500 SaO2% (BldA) [Mass fraction] 93 % Dr. Charla Wadsworth MD Work Phone: [facility] 04-05-2024 10:00-0500 Heart rate 91 /min Dr. Charla Wadsworth MD Work Phone: [facility] 04-05-2024 10:00-0500 Respiratory rate 18 /min Dr. Charla Wadsworth MD Work Phone: [facility] 04-05-2024 09:36-0500 Body temperature 98.1 [degF] Dr. Charla Wadsworth MD Work Phone: [facility] 04-05-2024 09:36-0500 Diastolic blood pressure 75 mm[Hg] Dr. Charla Wadsworth MD Work Phone: [facility] 04-05-2024 09:36-0500 Systolic blood pressure 130 mm[Hg] Dr. Charla Wadsworth MD Work Phone: [facility] 04-04-2024 10:11-0500 Body weight 101.[address] Charla Wadsworth MD Work Phone: [facility] 04-03-2024 18:49-0500 Body mass index (BMI) [Ratio] 40.9 kg/m2 Dr. Charla Wadsworth MD Work Phone: [facility] 01-27-2024 10:47-0500 Body temperature 97.8 [degF] Dr. Charla Wadsworth MD Work Phone: [facility] 01-27-2024 10:47-0500 Diastolic blood pressure 58 mm[Hg] Dr. Charla Wadsworth MD Work Phone: [facility] 01-27-2024 10:47-0500 Heart rate 60 /min Dr. Charla Wadsworth MD Work Phone: [facility] 01-27-2024 10:47-0500 Respiratory rate 14 /min Dr. Charla Wadsworth MD Work Phone: [facility] 01-27-2024 10:47-0500 SaO2% (BldA) [Mass fraction] 94 % Dr. Charla Wadsworth MD Work Phone: [facility] 01-27-2024 10:47-0500 Systolic blood pressure 106 mm[Hg] Dr. Charla Wadsworth MD Work Phone: [facility] 07-12-2023 03:22-0400 Body temperature 97.6 [degF] Dr. Charla Wadsworth Work Phone: [facility] 07-12-2023 03:22-0400 Diastolic blood pressure 66 mm[Hg] Dr. Charla Wadsworth Work Phone: [facility] 07-12-2023 03:22-0400 Heart rate 64 /min Dr. Charla Wadsworth Work Phone: [facility] 07-12-2023 03:22-0400 Respiratory rate 16 /min Dr. Charla Wadsworth Work Phone: [facility] 07-12-2023 03:22-0400 SaO2% (BldA) [Mass fraction] 99 % Dr. Charla Wadsworth Work Phone: [facility] 07-12-2023 03:22-0400 Systolic blood pressure 124 mm[Hg] Dr. Charla Wadsworth Work Phone: [facility] 07-12-2023 00:38-0400 Body height 157.[address] Charla Wadsworth Work Phone: [facility] 07-12-2023 00:38-0400 Body mass index (BMI) [Ratio] 37 kg/m2 Dr. Charla Wadsworth Work Phone: [facility] 07-12-2023 00:38-0400 Body weight 91.[address] Charla Wadsworth Work Phone: [facility] 05-24-2023 20:18-0400 Body mass index (BMI) [Ratio] 0 kg/m2 Dr. Charla Wadsworth Work Phone: [facility] 05-24-2023 20:18-0400 Body weight [address] Charla Wadsworth Work Phone: [facility] 05-24-2023 15:44-0400 Body height 157.[address] Charla Wadswotrh Work Phone: [facility] 05-24-2023 15:44-0400 Body temperature 98.4 [degF] Dr. Charla Wadsworth Work Phone: [facility] 05-24-2023 15:44-0400 Diastolic blood pressure 73 mm[Hg] Dr. Charla Wadsworth Work Phone: [facility] 05-24-2023 15:44-0400 Heart rate 56 /min Dr. Charla Wadsworth Work Phone: [facility] 05-24-2023 15:44-0400 Respiratory rate 16 /min Dr. Charla Wadsworth Work Phone: [facility] 05-24-2023 15:44-0400 SaO2% (BldA) [Mass fraction] 97 % Dr. Charla Wadsworth Work Phone: [facility] 05-24-2023 15:44-0400 Systolic blood pressure 110 mm[Hg] Dr. Charla Wadsworth Work Phone: [facility] 03-26-2023 13:08-0500 Body mass index (BMI) [Ratio] 33.7 kg/m2 Dr. Charla Wadsworth Work Phone: [facility] 03-26-2023 13:08-0500 Body temperature 97.5 [degF] Dr. Charla Wadsworth Work Phone: [facility] 03-26-2023 13:08-0500 Body weight 83.[address] Charla Wadsworth Work Phone: [facility] 03-26-2023 13:08-0500 Diastolic blood pressure 62 mm[Hg] Dr. Chalra Wadsworth Work Phone: [facility] 03-26-2023 13:08-0500 Heart rate 57 /min Dr. Charla Wadsworth Work Phone: [facility] 03-26-2023 13:08-0500 Respiratory rate 16 /min Dr. Charla Wadsworth Work Phone: [facility] 03-26-2023 13:08-0500 SaO2% (BldA) [Mass fraction] 97 % Dr. Charla Wadsworth Work Phone: [facility] 03-26-2023 13:08-0500 Systolic blood pressure 118 mm[Hg] Dr. Charla Wasdworth Work Phone: [facility] 02-14-2023 08:44-0500 Body mass index (BMI) [Ratio] 33.3 kg/m2 Dr. Charla Wadsworth Work Phone: [facility] 02-14-2023 08:44-0500 Body weight 82.[address] Charla Wadsworth Work Phone: [facility] 02-14-2023 08:44-0500 Diastolic blood pressure 84 mm[Hg] Dr. Charla Wadsworth Work Phone: [facility] 02-14-2023 08:44-0500 Heart rate 60 /min Dr. Charla Wadsworth Work Phone: [facility] 02-14-2023 08:44-0500 Respiratory rate 18 /min Dr. Charla Wadsworth Work Phone: [facility] 02-14-2023 08:44-0500 SaO2% (BldA) [Mass fraction] 96 % Dr. Charla Wadsworth Work Phone: [facility] 02-14-2023 08:44-0500 Systolic blood pressure 119 mm[Hg] Dr. Charla Wadsworth Work Phone: [facility] 01-30-2023 10:03-0500 Body height 157.[address] Charla Wadsworth Work Phone: [facility] 01-30-2023 10:03-0500 Body mass index (BMI) [Ratio] 33.5 kg/m2 Dr. Charla Wadsworth Work Phone: [facility] 01-30-2023 10:03-0500 Body temperature 98 [degF] Dr. Charla Wadsworth Work Phone: [facility] 01-30-2023 10:03-0500 Body weight [address] Charla Wadsworth Work Phone: [facility] 01-30-2023 10:03-0500 Diastolic blood pressure 74 mm[Hg] Dr. Charla Wadsworth Work Phone: [facility] 01-30-2023 10:03-0500 Heart rate 71 /min Dr. Charla Wadsworth Work Phone: [facility] 01-30-2023 10:03-0500 Respiratory rate 16 /min Dr. Charla Wadsworth Work Phone: [facility] 01-30-2023 10:03-0500 SaO2% (BldA) [Mass fraction] 97 % Dr. Charla Wadsworth Work Phone: [facility] 01-30-2023 10:03-0500 Systolic blood pressure 138 mm[Hg] Dr. Charla Wadsworth Work Phone: [facility] 12-03-2022 23:00-0400 Diastolic blood pressure 72 mm[Hg] Dr. Charla Wadsworth Work Phone: [facility] 12-03-2022 23:00-0400 Systolic blood pressure 148 mm[Hg] Dr. Charla Wadsworth Work Phone: [facility] 12-03-2022 22:00-0400 Respiratory rate 16 /min Dr. Charla Wadsworth Work Phone: [facility] 12-03-2022 16:27-0400 Body height 157.[address] Charla Wadsworth Work Phone: [facility] 12-03-2022 16:27-0400 Body mass index (BMI) [Ratio] 33.9 kg/m2 Dr. Charla Wadsworth Work Phone: [facility] 12-03-2022 16:27-0400 Body temperature 97.6 [degF] Dr. Charla Wadsworth Work Phone: [facility] 12-03-2022 16:27-0400 Body weight 84.[address] Charla Wadsworth Work Phone: [facility] 12-03-2022 16:27-0400 Heart rate 53 /min Dr. Charla Wadsworth Work Phone: [facility] 12-03-2022 16:27-0400 SaO2% (BldA) [Mass fraction] 98 % Dr. Charla Wadsworth Work Phone: [facility] 11-24-2022 20:23-0400 Body height 157.[address] Charla Wadsworth Work Phone: [facility] 11-24-2022 20:23-0400 Body mass index (BMI) [Ratio] 34.2 kg/m2 Dr. Charla Wadsworth Work Phone: [facility] 11-24-2022 20:23-0400 Body temperature 96 [degF] Dr. Charla Wadsworth Work Phone: [facility] 11-24-2022 20:23-0400 Body weight [address] Charla Wadsworth Work Phone: [facility] 11-24-2022 20:23-0400 Diastolic blood pressure 77 mm[Hg] Dr. Charla Wadsworth Work Phone: [facility] 11-24-2022 20:23-0400 Heart rate 74 /min Dr. Charla Wadsworth Work Phone: [facility] 11-24-2022 20:23-0400 Respiratory rate 16 /min Dr. Charla Wadsworth Work Phone: [facility] 11-24-2022 20:23-0400 SaO2% (BldA) [Mass fraction] 96 % Dr. Charla Wadsworth Work Phone: [facility] 11-24-2022 20:23-0400 Systolic blood pressure 122 mm[Hg] Dr. Charla Wadsworth Work Phone: [facility] 11-15-2022 12:21-0400 Body height 157.[address] Charla Wadsworth Work Phone: [facility] 11-15-2022 12:21-0400 Body temperature 96.9 [degF] Dr. Charla Wadsworth Work Phone: [facility] 11-15-2022 12:21-0400 Diastolic blood pressure 83 mm[Hg] Dr. Charla Wadsworth Work Phone: [facility] 11-15-2022 12:21-0400 Heart rate 63 /min Dr. Charla Wadsworth Work Phone: [facility] 11-15-2022 12:21-0400 Respiratory rate 18 /min Dr. Charla Wadsworth Work Phone: [facility] 11-15-2022 12:21-0400 SaO2% (BldA) [Mass fraction] 99 % Dr. Charla Wadsworth Work Phone: [facility] 11-15-2022 12:21-0400 Systolic blood pressure 104 mm[Hg] Dr. Charla Wadsworth Work Phone: [facility] 11-13-2022 21:04-0400 Body height 157.[address] Charla Wadsworth Work Phone: [facility] 11-13-2022 21:04-0400 Body mass index (BMI) [Ratio] 33.3 kg/m2 Dr. Charla Wadsworth Work Phone: [facility] 11-13-2022 21:04-0400 Body temperature 97.5 [degF] Dr. Charla Wadsworth Work Phone: [facility] 11-13-2022 21:04-0400 Body weight 82.[address] Charla Wadsworth Work Phone: [facility] 11-13-2022 21:04-0400 Diastolic blood pressure 90 mm[Hg] Dr. Charla Wadsworth Work Phone: [facility] 11-13-2022 21:04-0400 Heart rate 86 /min Dr. Charla Wadsworth Work Phone: [facility] 11-13-2022 21:04-0400 Respiratory rate 15 /min Dr. Charla Wadsworth Work Phone: [facility] 11-13-2022 21:04-0400 SaO2% (BldA) [Mass fraction] 97 % Dr. Charla Wadsworth Work Phone: [facility] 11-13-2022 21:04-0400 Systolic blood pressure 127 mm[Hg] Dr. Charla Wadsworth Work Phone: [facility] 08-28-2022 13:17-0400 Body mass index (BMI) [Ratio] 34.7 kg/m2 Dr. Charla Wadsworth Work Phone: [facility] 08-28-2022 13:17-0400 Body weight 86.[address] Charla Wadsworth Work Phone: [facility] 08-28-2022 13:17-0400 Diastolic blood pressure 66 mm[Hg] Dr. Charla Wadsworth Work Phone: [facility] 08-28-2022 13:17-0400 Heart rate 54 /min Dr. Charla Wadsworth Work Phone: [facility] 08-28-2022 13:17-0400 Respiratory rate 20 /min Dr. Charla Wadsworth Work Phone: [facility] 08-28-2022 13:17-0400 SaO2% (BldA) [Mass fraction] 95 % Dr. Charla Wadsworth Work Phone: [facility] 08-28-2022 13:17-0400 Systolic blood pressure 102 mm[Hg] Dr. Charla Wadsworth Work Phone: [facility] 05-16-2022 08:03-0500 Body height 157.[address] Charla Wadsworth Work Phone: [facility] 05-16-2022 08:03-0500 Body mass index (BMI) [Ratio] 34.2 kg/m2 Dr. Charla Wadsworth Work Phone: [facility] 05-16-2022 08:03-0500 Body temperature 98.4 [degF] Dr. Charla Wadsworth Work Phone: [facility] 05-16-2022 08:03-0500 Body weight 84.[address] Charla Wadsworth Work Phone: [facility] 05-16-2022 08:03-0500 Diastolic blood pressure 82 mm[Hg] Dr. Charla Wadsworth Work Phone: [facility] 05-16-2022 08:03-0500 Heart rate 60 /min Dr. Charla Wadsworth Work Phone: [facility] 05-16-2022 08:03-0500 Respiratory rate 14 /min Dr. Charla Wadsworth Work Phone: [facility] 05-16-2022 08:03-0500 SaO2% (BldA) [Mass fraction] 95 % Dr. Charla Wadsworth Work Phone: [facility] 05-16-2022 08:03-0500 Systolic blood pressure 130 mm[Hg] Dr. Charla Wadsworth Work Phone: [facility] 01-22-2022 15:31-0500 Body height 158.[address] Charla Wadsworth Work Phone: [facility] Work Phone: 01-22-2022 15:31-0500 Body mass index (BMI) [Ratio] 35.4 kg/m2 Dr. Charla Wadsworth Work Phone: [facility] 01-22-2022 15:31-0500 Body weight 89.[address] Charla Wadsworth Work Phone: [facility] 01-22-2022 15:31-0500 Diastolic blood pressure 74 mm[Hg] Dr. Charla Wadsworth Work Phone: [facility] 01-22-2022 15:31-0500 Heart rate 59 /min Dr. Charla Wadsworth Work Phone: [facility] 01-22-2022 15:31-0500 Respiratory rate 18 /min Dr. Charla Wadsworth Work Phone: [facility] 01-22-2022 15:31-0500 SaO2% (BldA) [Mass fraction] 96 % Dr. Charla Wadsworth Work Phone: [facility] 01-22-2022 15:31-0500 Systolic blood pressure 113 mm[Hg] Dr. Charla Wadsworth Work Phone: [facility] 01-22-2022 14:37-0500 Body mass index (BMI) [Ratio] 36.1 kg/m2 Dr. Charla Wadsworth Work Phone: [facility] 01-22-2022 14:37-0500 Body temperature 97 [degF] Dr. Charla Wadsworth Work Phone: [facility] 01-22-2022 14:37-0500 Body weight 91.[address] Charla Wadsworth Work Phone: [facility] 01-22-2022 14:37-0500 Diastolic blood pressure 73 mm[Hg] Dr. Charla Wadsworth Work Phone: [facility] 01-22-2022 14:37-0500 Heart rate 59 /min Dr. Charla Wadsworth Work Phone: [facility] 01-22-2022 14:37-0500 Respiratory rate 16 /min Dr. Charla Wadsworth Work Phone: [facility] 01-22-2022 14:37-0500 SaO2% (BldA) [Mass fraction] 94 % Dr. Charla Wadsworth Work Phone: [facility] 01-22-2022 14:37-0500 Systolic blood pressure 121 mm[Hg] Dr. Charla Wadsworth Work Phone: [facility] 11-03-2021 14:42-0400 Body height 158.[address] Charla Wadsworth Work Phone: [facility] Work Phone: 11-03-2021 14:42-0400 Body mass index (BMI) [Ratio] 35.8 kg/m2 Dr. Charla Wadsworth Work Phone: [facility] Work Phone: 11-03-2021 14:42-0400 Body temperature 96.4 [degF] Dr. Charla Wadsworth Work Phone: [facility] Work Phone: 11-03-2021 14:42-0400 Body weight 90.[address] Charla Wadsworth Work Phone: [facility] Work Phone: 11-03-2021 14:42-0400 Diastolic blood pressure 66 mm[Hg] Dr. Charla Wadsworth Work Phone: [facility] Work Phone: 11-03-2021 14:42-0400 Heart rate 52 /min Dr. Charla Wadsworth Work Phone: [facility] Work Phone: 11-03-2021 14:42-0400 Respiratory rate 16 /min Dr. Charla Wadsworth Work Phone: [facility] Work Phone: 11-03-2021 14:42-0400 SaO2% (BldA) [Mass fraction] 96 % Dr. Charla Wadsworth Work Phone: [facility] Work Phone: 11-03-2021 14:42-0400 Systolic blood pressure 110 mm[Hg] Dr. Charla Wadsworth Work Phone: [facility] Work Phone: 10-25-2021 11:54-0400 Body temperature 98.4 [degF] Dr. Charla Wadsworth Work Phone: [facility] Work Phone: 10-25-2021 11:54-0400 Diastolic blood pressure 88 mm[Hg] Dr. Charla Wadsworth Work Phone: [facility] Work Phone: 10-25-2021 11:54-0400 Heart rate 59 /min Dr. Charla Wadsworth Work Phone: [facility] Work Phone: 10-25-2021 11:54-0400 Respiratory rate 18 /min Dr. Charla Wadsworth Work Phone: [facility] Work Phone: 10-25-2021 11:54-0400 SaO2% (BldA) [Mass fraction] 96 % Dr. Charla Wadsworth Work Phone: [facility] Work Phone: 10-25-2021 11:54-0400 Systolic blood pressure 173 mm[Hg] Dr. Charla Wadsworth Work Phone: [facility] Work Phone: 10-24-2021 11:14-0400 Body weight 92.[address] Charla Wadsworth Work Phone: [facility] Work Phone: 10-23-2021 14:55-0400 Body mass index (BMI) [Ratio] 36.6 kg/m2 Dr. Charla Wadsworth Work Phone: [facility] Work Phone: 10-22-2021 20:50-0400 Diastolic blood pressure 94 mm[Hg] Dr. Charla Wadsworth Work Phone: [facility] Work Phone: 10-22-2021 20:50-0400 Systolic blood pressure 155 mm[Hg] Dr. Charla Wadsworth Work Phone: [facility] Work Phone: 10-22-2021 15:32-0400 Body temperature 97.1 [degF] Dr. Charla Wadsworth Work Phone: [facility] Work Phone: 10-22-2021 15:32-0400 Heart rate 71 /min Dr. Charla Wadsworth Work Phone: [facility] Work Phone: 10-22-2021 15:32-0400 Respiratory rate 18 /min Dr. Charla Wadsworth Work Phone: [facility] Work Phone: 10-22-2021 15:32-0400 SaO2% (BldA) [Mass fraction] 97 % Dr. Charla Wadsworth Work Phone: [facility] Work Phone: 10-22-2021 15:29-0400 Body height 157.[address] Charla Wadsworth Work Phone: [facility] Work Phone: 10-22-2021 15:29-0400 Body mass index (BMI) [Ratio] 42 kg/m2 Dr. Charla Wadsworth Work Phone: [facility] Work Phone: 10-22-2021 15:29-0400 Body weight 104.[address] Charla Wadsworth Work Phone: [facility] Work Phone: 08-17-2021 11:41-0400 Body height 152.[address] Charla Wadsworth Work Phone: [facility] Work Phone: 08-17-2021 11:41-0400 Body weight 95.[address] Charla Wadsworth Work Phone: [facility] [facility] Work Phone: 08-16-2021 10:02-0400 Body mass index (BMI) [Ratio] 41.2 kg/m2 Dr. Charla Wadsworth Work Phone: [facility] Work Phone: 08-15-2021 08:18-0400 Body mass index (BMI) [Ratio] 41.2 kg/m2 Dr. Charla Wadsworth Work Phone: [facility] Work Phone: 08-15-2021 08:18-0400 Body weight 95.[address] Charla Wadsworth Work Phone: [facility] Work Phone: 08-15-2021 08:18-0400 Diastolic blood pressure 75 mm[Hg] Dr. Charla Wadsworth Work Phone: [facility] Work Phone: 08-15-2021 08:18-0400 Heart rate 64 /min Dr. Charla Wadsworth Work Phone: [facility] Work Phone: 08-15-2021 08:18-0400 Respiratory rate 16 /min Dr. Charla Wadsworth Work Phone: [facility] Work Phone: 08-15-2021 08:18-0400 SaO2% (BldA) [Mass fraction] 94 % Dr. Charla Wadsworth Work Phone: [facility] Work Phone: 08-15-2021 08:18-0400 Systolic blood pressure 120 mm[Hg] Dr. Charla Wadsworth Work Phone: [facility] Work Phone: 08-15-2021 08:18-0400 Body mass index (BMI) [Ratio] 41.2 kg/m2 Dr. Charla Wadsworth Work Phone: [facility] Work Phone: 08-15-2021 08:18-0400 Body weight 95.[address] Charla Wadsworth Work Phone: [facility] Work Phone: 08-15-2021 08:18-0400 Diastolic blood pressure 75 mm[Hg] Dr. Charla Wadsworth Work Phone: [facility] Work Phone: 08-15-2021 08:18-0400 Heart rate 64 /min Dr. Charla Wadsworth Work Phone: [facility] Work Phone: 08-15-2021 08:18-0400 Respiratory rate 16 /min Dr. Charla Wadsworth Work Phone: [facility] Work Phone: 08-15-2021 08:18-0400 SaO2% (BldA) [Mass fraction] 94 % Dr. Charla Wadsworth Work Phone: [facility] Work Phone: 08-15-2021 08:18-0400 Systolic blood pressure 120 mm[Hg] Dr. Charla Wadsworth Work Phone: [facility] Work Phone: 08-05-2020 08:56-0400 Body mass index (BMI) [Ratio] 35 kg/m2 Dr. Charla Wadsworth Work Phone: [facility] Work Phone: Encounters Encounter Date Encounter Type Care Provider Facility Start: 11-17-2024 ambulatory [facility] Bert Kelleyi ty:[facility] Start: 10-29-2024 End: 10-29-2024 Dr. Samuel Keys MD -[facility] Work Phone: Start: 10-29-2024 End: 10-29-[address] Charla Wadsworth MD Work Phone: -[facility] Start: 10-22-2024 Encounter for genera l adult medical examination without abnormal findings [facility] Start: 10-22-2024 End: 10-22-2024 Dr. Charla Wadsworth MD Work Phone: -Emergency Department Work Phone: Start: 10-22-2024 End: 10-22-2024 Emergency department patient visit Dr. Charla Wadsworth MD Work Phone: -Emergency Department Start: 10-21-2024 End: 10-21-[address] Charla Wadsworth MD Work Phone: -[facility] Start: 10-21-2024 End: 10-21-[address] Charla Wadsworth MD [facility] Start: 10-21-2024 End: 10-21-2024 Dr. Charla Wadsworth MD -[facility] Work Phone: Start: 10-16-2024 End: 10-16-2024 Dr. Charla Wadsworth MD Work Phone: -Emergency Department Work Phone: Start: 10-16-2024 End: 10-16-2024 Emergency department patient visit Dr. Charla Wadsworth MD Work Phone: -Emergency Department Start: 10-10-2024 End: 10-10-2024 Dr. Charla Wadsworth MD Work Phone: -Emergency Department Work Phone: Start: 10-10-2024 End: 10-10-2024 Emergency department patient visit Dr. Charla Wadsworth MD Work Phone: -Emergency Department Start: 10-05-2024 ambulatory Charla Kunz ty:[facility] Start: 10-02-2024 End: 10-02-2024 Janeth PINEDA -[facility] Work Phone: Start: 10-02-2024 End: 10-02-[address] Charla Wadsworth MD Work Phone: -[facility] Start: 09-14-2024 ambulatory Charla Kelleyi ty:[facility] Start: 08-17-2024 End: 08-17-[address] Charla Wadsworth MD Work Phone: [facility] Work Phone: Start: 08-17-2024 End: 08-17-2024 Dr. Samuel Keys MD -[facility] Work Phone: Start: 08-10-2024 End: 2024 Telephone encounter Butch Mays MD Work Phone: [facility] Comment on above: Appointment Start: 08-05-2024 End: 08-05-2024 Patient encounter procedure Butch Mays MD Work Phone: [facility] Comment on above: Weakness of both low er extremities (Primary Dx); Obesity, Class III, BMI 40-49.9 (morbid obesity) Start: 08-05-2024 End: 08-05-2024 ambulatory BUTCH MAYS Facility:[id number] Start: 08-04-2024 End: 08-04-2024 ambulatory NACHO DUNN Facility:[facility] Start: 08-04-2024 End: 08-04-2024 Subsequent hospital visit by physician [facility] Comment on above: Arrived Spinal stenosis of c ervical region [M48.02] Start: 07-22-2024 End: 07-23-2024 Dr. Charla Wadsworth MD Work Phone: -Emergency Department Work Phone: Start: 07-22-2024 End: 07-23-2024 Emergency department patient visit Dr. Charla Wadsworth MD Work Phone: [facility] Work Phone: Start: 07-22-2024 End: 07-22-2024 Dr. Charla Wadsworth MD -[facility] Work Phone: Start: 07-22-2024 End: 07-22-[address] Charla Wadsworth MD Work Phone: [facility] Work Phone: Start: 07-13-2024 End: 07-13-2024 Telephone encounter Butch Mays MD Work Phone: [facility] Comment on above: Orders (Received mes joanne form Dr. Mays that he would like MRI's ordered as STAT) Start: 07-07-2024 End: 07-07-2024 Orders Only Butch Mays MD Work Phone: [facility] Comment on above: Spinal stenosis of c ervical region (Primary Dx); Thoracic myelopathy Start: 07-06-2024 ambulatory Charla Kunz ty:[facility] Start: 07-03-2024 End: 07-04-2024 Evaluation and management of inpatient REMUS A UNGUR Facility:[facility] Start: 07-02-2024 End: 07-03-2024 Dr. Charla Wadsworth MD Work Phone: -Emergency Department Work Phone: Start: 07-02-2024 End: 07-03-2024 Emergency department patient visit Dr. Charla Wadsworth MD Work Phone: [facility] Work Phone: Start: 07-01-[address] GEE MERCHANT MD Facility:A Start: 06-29-2024 End: 06-29-2024 Dr. Charla Wadsworth MD Work Phone: -Emergency Department Work Phone: Start: 06-29-2024 End: 06-29-2024 Emergency department patient visit Dr. Charla Wadsworth MD Work Phone: [facility] Work Phone: Start: 06-29-2024 Kareen PINEDA -[facility] Work Phone: Start: 06-29-2024 ambulatory Charla Kunz ty:[facility] Start: 06-26-2024 End: 06-26-[address] Charla Wadsworth MD Work Phone: [facility] Work Phone: Start: 06-26-2024 End: 06-26-2024 Dr. Keon France MD -[facility] Start: 06-26-2024 End: 06-26-2024 ambulatory [facility] Facility:[facility] Start: 06-13-2024 End: 06-13-2024 Dr. Charla Wadsworth MD Work Phone: -Emergency Department Work Phone: Start: 06-13-2024 End: 06-13-2024 Emergency department patient visit Dr. Charla Wadsworth MD Work Phone: [facility] Work Phone: Start: 06-11-2024 End: 06-11-2024 Kareen Bradshaw NP-C -Laboratory Work Phone: Start: 06-11-2024 End: 06-11-[address] Charla Wadsworth MD Work Phone: [facility] Work Phone: Start: 06-11-2024 End: 06-11-2024 Im[facility] Work Phone: Start: 06-11-2024 End: 06-11-2024 ambulatory [facility] Facility:[facility] Start: 05-21-2024 End: 05-22-2024 Dr. Charla Wadsworth MD Work Phone: -Emergency Department Work Phone: Start: 05-21-2024 End: 05-22-2024 Emergency department patient visit Dr. Charla Wadsworth MD Work Phone: [facility] Work Phone: Start: 05-18-2024 End: 05-18-2024 ambulatory Charla Wadsworth Facility:[facility] Start: 05-18-2024 End: 05-18-2024 Dr. Samuel Keys MD -[facility] Work Phone: Start: 05-12-2024 End: 05-13-2024 Dr. Charla Wadsworth MD Work Phone: -Emergency Department Work Phone: Start: 05-12-2024 End: 05-13-2024 Emergency department patient visit [facility] Facility:[facility] Start: 05-04-2024 [facility] Start: 05-04-2024 End: 05-04-2024 Dr. Gregory Xie DO -Emergency Departmen t Work Phone: Start: 05-04-2024 End: 05-04-2024 Emergency department patient visit [facility] Facility:[facility] Start: 04-21-2024 Dr. Charla Wadsworth MD -[facility] Start: 04-21-2024 [facility]ulatory [facility] Start: 04-20-2024 End: 04-20-2024 Dr. Charla Wadsworth MD -Laboratory, CUT OFF Start: 04-20-2024 End: 04-20-2024 Dr. Charla Wadsworth MD -[facility] Work Phone: Start: 04-20-2024 End: 04-20-2024 ambulatory [facility] Facility:[facility] Start: 04-20-2024 End: 04-20-2024 ambulatory [facility] Facility:[facility] Start: 04-15-2024 End: 04-15-2024 Dr. Gigi Barton MD -Emergency Departmen t Work Phone: Start: 04-15-2024 End: 04-15-2024 Emergency department patient visit [facility] Facility:[facility] Start: 04-05-2024 Dr. Autumn Gorman MD [facility] Work Phone: Start: 04-04-2024 Dr. Autumn Gorman MD -[facility] Work Phone: Start: 04-03-2024 ambulatory E[facility] Oleghe Facili ty:[facility] Start: 04-03-2024 End: 04-05-2024 Evaluation and management of inpatient Tita Winn Facility:[facility] Start: 04-03-2024 End: 04-05-2024 Dr. Autumn Gorman MD -Medical Surgical 3 Work Phone: Start: 03-31-2024 Encounter for preprocedural laboratory examination Alan Mack [facility] Start: 03-17-2024 ambulatory [facility] O[facility] Facili ty:[facility] Start: 03-16-2024 ambulatory [facility] Oleg[facility] Facili ty:[facility] Start: 02-25-2024 ambulatory Efewongbe Oleghe Facili ty:[facility] Start: 02-20-2024 End: 02-20-2024 Dr. Alan Mack MD -[facility] Work Phone: Start: 02-20-2024 End: 02-20-2024 ambulatory Efewongbe Olenataliae Facility:[facility] Start: 02-17-2024 End: 02-17-2024 ambulatory Efewongbe Grege Facility:[facility] Start: 02-17-2024 End: 02-17-2024 Dr. Samuel Keys MD -[facility] Work Phone: Start: 01-27-2024 End: 01-27-2024 Dr. Charla Wadsworth MD -[facility] Work Phone: Start: 01-27-2024 End: 01-27-2024 ambulatory Efewongbe Oleghe Facility:[facility] Start: 01-10-2024 End: 01-10-2024 [facility] Start: 12-09-2023 End: 12-09-2023 ambulatory Efewongbe Oleghe Facility:[facility] Start: 12-04-2023 End: 12-04-2023 Emergency department patient visit Keon Ramirez Facility:[facility] Start: 12-02-2023 ambulatory Rosemarie DIAZ Facility:[facility] Start: 12-02-2023 End: 12-02-2023 ambulatory Charla Wadsworth Facility:[facility] Start: 11-29-2023 ambulatory Soldotna Ludmila Facility:[facility] Start: 11-18-2023 End: 11-18-2023 ambulatory Soldotna Ludmila Facility:[facility] Start: 11-14-2023 End: 11-14-2023 ambulatory Charla Wadsworth Facility:[facility] Start: 07-12-2023 End: 07-12-2023 Emergency department patient visit Dr. Charla Wadsworth Work Phone: [facility]-Emergency Department Work Phone: Start: 06-20-2023 End: 06-20-[address] Charla Wadsworth Work Phone: [facility] Work Phone: Start: 05-24-2023 End: 05-24-2023 Emergency department patient visit Dr. Charla Wadsworth Work Phone: [facility]-Emergency Department Work Phone: Start: 03-26-2023 End: 03-26-[address] Charla Wadsworth Work Phone: [facility] Work Phone: Start: 03-22-2023 End: 03-22-[address] Charla Wadsworth Work Phone: [facility] Work Phone: Start: 02-18-2023 End: 02-18-2023 Non-patient / Non-visit Dr. Charla Wadsworth Work Phone: [facility] Work Phone: Start: 02-14-2023 End: 02-14-[address] Charla Wadsworth Work Phone: [facility] Work Phone: Start: 01-30-2023 End: 01-30-[address] Charla Wadsworth Work Phone: [facility] Work Phone: Start: 01-30-2023 End: 01-30-[address] Charla Wadsworth Work Phone: [facility] Work Phone: Start: 12-10-2022 End: 12-10-[address] Charla Wadsworth Work Phone: [facility] Work Phone: Start: 12-03-2022 End: 12-03-2022 Emergency department patient visit Dr. Charla Wadsworth Work Phone: [facility]-Emergency Department Work Phone: Start: 11-24-2022 End: 11-24-2022 Emergency department patient visit Dr. Charla Wadsworth Work Phone: [facility]-Emergency Department Work Phone: Start: 11-15-2022 End: 11-15-2022 Emergency department patient visit Dr. Charla Wadsworth Work Phone: [facility]-Emergency Department Work Phone: Start: 11-13-2022 End: 11-13-2022 Emergency department patient visit Dr. Charla Wadsworth Work Phone: [facility]-Emergency Department Work Phone: Start: 10-09-2022 End: 10-09-[address] Charla Wadsworth Work Phone: [facility]-Outpatient Bone Densitometry Work Phone: Start: 08-28-2022 End: 08-28-[address] Charla Wadsworth Work Phone: [facility] Work Phone: Start: 05-16-2022 End: 05-16-[address] Charla Wadsworth Work Phone: [facility] Work Phone: Start: 05-16-2022 End: 05-16-[address] Charla Wadsworth Work Phone: [facility], CUT OFF Start: 05-16-[address] Susanne Wadsworth Work Phone: [facility] Start: 05-16-2022 End: 05-16-2022 Encounter for general adult medical examination without abnormal findings Dr. Charla Wadsworth Work Phone: [facility] Start: 05-16-2022 End: 05-16-[address] Charla Wadsworth Work Phone: [facility] Start: 02-20-2022 End: 02-20-[address] Charla Wadsworth Work Phone: [facility] Start: 01-22-2022 End: 01-22-[address] Charla Wadsworth Work Phone: [facility] Start: 01-22-2022 End: 01-22-[address] Charla Wadsworth Work Phone: [facility] Work Phone: Start: 01-22-2022 End: 01-22-[address] Charla Wadsworth Work Phone: [facility] Start: 11-22-2021 End: 11-22-[address] Charla Wadsworth Work Phone: [facility] Start: 11-03-2021 End: 11-03-[address] Charla Wadsworth Work Phone: [facility] Start: 10-25-2021 Non-patient / Non-visit Dr. Letha Wadsworth Work Phone: [facility] Start: 10-24-2021 Non-patient / Non-visit Dr. Letha Wadsworth Work Phone: [facility] Start: 10-23-2021 Non-patient / Non-visit Dr. Letha Wadsworth Work Phone: [facility] Start: 10-23-2021 End: 10-25-2021 Evaluation and management of inpatient Dr. Charla Wadsworth Work Phone: [facility]-Medical Surgical 3 Start: 10-22-2021 End: 10-22-2021 Emergency department patient visit Dr. Charla Wadsworth Work Phone: [facility]-Emergency Department Start: 09-12-[address] Wilma Wadsworth Work Phone: [facility]-Physical Therapy Start: 08-17-2021 End: 08-17-2021 Admission to same day surgery center Dr. Charla Wadsworth Work Phone: [facility]-Capture Manager/Special Procedures Start: 08-15-2021 End: 08-15-[address] Charla Wadsworth Work Phone: [facility]-Radiology, [facility] Start: 08-15-[address] Wilma Wadsworth Work Phone: [facility]-Physical Therapy Start: 04-24-2021 End: 04-24-[address] Charla Wadsworth Work Phone: [facility] Start: 03-01-[address] Susanne Wadsworth Work Phone: [facility] Start: 09-22-2020 End: 09-23-[address] [facility] Start: 12-14-2019 End: 12-14-2019 Subsequent hospital visit by physician Dev Bridges Work Phone: [facility] Comment on above: Other malignant neur oendocrine tumors; Family history of colon cancer Procedures Date Procedure Procedure Detail Performing Clinician Start: 10-22-2024 Plain x-ray of pelvi s and lower extremity Dr. Charla Wadsworth MD Work Phone: Start: 10-22-2024 Plain X-ray of tibia and fibula Dr. Charla Wadsworth MD Work Phone: Start: 10-22-2024 X-ray of knee, four or more views Dr. Charla Wadsworth MD Work Phone: Start: 10-16-2024 Urine microscopy: red cells Dr. Charla Wadsworth MD Work Phone: Start: 10-16-2024 Urnls dip stick/tabl et reagent auto microscopy Dr. Charla Wadsworth MD Work Phone: Start: 10-16-2024 Plain radiography of pelvis Dr. Charla Wadsworth MD Work Phone: Start: 10-16-2024 X-ray of sacrum and coccyx, two or more views Dr. Charla Wadsworth MD Work Phone: Start: 10-16-2024 Plain chest X-ray Dr. Susanne Wadsworth MD Work Phone: Start: 10-16-2024 Plain X-ray of tibia and fibula Dr. Charla Wadsworth MD Work Phone: Start: 10-16-2024 Computed tomography of thoracic spine without contrast Dr. Charla Wadsworth MD Work Phone: Start: 10-16-2024 Blood count smear mc rscp w/mnl difrntl wbc count Dr. Charla Wadsworth MD Work Phone: Start: 10-16-[address] Charla Wadsworth MD Work Phone: Start: 10-16-2024 Mean corpuscular hem oglobin concentration determination Dr. Charla Wadsworth MD Work Phone: Start: 10-16-2024 Nucleated red blood cell count procedure Dr. Charla Wadsworth MD Work Phone: Start: 10-16-2024 Platelet mean volume determination Dr. Charla Wadsworth MD Work Phone: Start: 10-16-2024 Triacyl[address]ol lipa se measurement Dr. Charla Wadsworth MD Work Phone: Start: 10-16-2024 CT cervical spine wi thout contrast Dr. Charla Wadsworth MD Work Phone: Start: 10-16-2024 CT of head without contrast Dr. Charla Wadsworth MD Work Phone: Start: 10-16-[address] Wilma Wadsworth MD Work Phone: Start: 10-10-2024 Plain X-ray of clavicle Dr. Charla Wadsworth MD Work Phone: Start: 10-10-2024 Plain x-ray of pelvi s and lower extremity Dr. Charla Wadsworth MD Work Phone: Start: 10-10-2024 Plain X-ray of shoulder Dr. Charla Wadsworth MD Work Phone: Start: 10-10-2024 X-ray of knee, four or more views Dr. Charla Wadsworth MD Work Phone: Start: 08-04-2024 End: 08-04-2024 Prgrmg dev eval implantable subq lead dfb system Nacho Dunn MD Work Phone: Start: 08-04-2024 Mri spinal canal cer vical w/o contrast matrcatina Mays MD Work Phone: Start: 07-22-2024 Computed [...] Phone: Start: 05-04-2024 Anion gap measurement Marck Wadswroth MD Work Phone: Start: 05-04-2024 Blood count [...] Comment: URIN ALYSIS Performed By: #### 2 [id number] #### [facility],[address] [place] [address] Start: 04-10-2013 End: 04-10-2013 Nurse, Teaching, Wound [...] Treatment Date Care Activity Detail Author Start: 10-22-2024 [facility] Start: 10-16-2024 End: 10-16-2024 [facility] Start: 10-16-2024 Plain chest X-ray [facility] Start: 10-16-2024 XR Chest Single view [facility] Start: 10-16-2024 End: 10-16-2024 [facility] Start: 10-10-2024 [facility] Start: 10-10-2024 Plain X-ray of clavicle [facility] Start: 10-10-2024 Plain x-ray of pelvi s and lower extremity [facility] Start: 10-10-2024 Plain X-ray of shoulder [facility] Start: 10-10-2024 X-ray of knee, four or more views [facility] Start: 10-10-2024 XR Clavicle Views [facility] Start: 10-10-2024 XR Knee GE 4 Views [facility] Start: 10-10-2024 XR Pelvis and Hip Views [facility] Start: 10-10-2024 XR Shoulder GE 2 Views [facility] Start: 10-05-2024 Polysomnography [facility] Start: 09-15-2024 End: 09-15-2024 Patient encounter procedure 09/15/2024 11:40 AM EDT Appointment [facility] [address] [place] [address] DUE TO PT IMPLANT- IF APPT NEEDS TO BE RESCHEDULED IT MUST BE SENT TO THE FOLLOWING STAFF MESSAGE ADDRESS: IMAGING IMPLANTS [[id number]]. PACEMAKER and stimulator approved to schedule by: [facility] Comment on above: DUE TO PT IMPLANT- I F APPT NEEDS TO BE RESCHEDULED IT MUST BE SENT TO THE FOLLOWING STAFF MESSAGE ADDRESS: IMAGING IMPLANTS [[id number]]. PACEMAKER and stimulator approved to schedule by: [facility] Start: 09-15-2024 End: 09-15-2024 Patient encounter procedure 09/15/2024 10:20 AM EDT Appointment [facility] [address] [place] [address] DUE TO PT IMPLANT- IF APPT NEEDS TO BE RESCHEDULED IT MUST BE SENT TO THE FOLLOWING STAFF MESSAGE ADDRESS: IMAGING IMPLANTS [[id number]]. PACEMAKER and stimulator approved to schedule by: [facility] Comment on above: DUE TO PT IMPLANT- I F APPT NEEDS TO BE RESCHEDULED IT MUST BE SENT TO THE FOLLOWING STAFF MESSAGE ADDRESS: IMAGING IMPLANTS [[id number]]. PACEMAKER and stimulator approved to schedule by: [facility] Start: 09-08-2024 Polysomnography [facility] Start: 08-05-2024 End: 08-05-2024 Patient encounter procedure 08/05/2024 10:00 AM EDT Office Visit [facility] [address] [place] [address] [address] Butch Mays MD [address] [place] [address] [address] [place] [address] go over MRI resutls [facility] Comment on above: go over MRI resutls Start: 07-22-2024 [facility] Start: 07-20-2024 End: 2025 MR Cervical spine WO contrast MRI CERVICAL SPINE WO IVCON Radiology STAT Spinal stenosis of cervical region Expected: 07/20/2024, Expires: 2025 [facility] Work Phone: Comment on above: Expected: 07/20/2024 , Expires: 2025 Start: 07-20-2024 End: 2025 MR Thoracic spine WO contrast MRI THORACIC SPINE WO IVCON Radiology STAT Thoracic myelopathy Expected: 07/20/2024, Expires: 2025 [facility] Comment on above: Expected: 07/20/2024 , Expires: 2025 Start: 07-15-2024 End: 07-15-2024 Patient encounter procedure 07/15/2024 9:30 AM EDT Office Visit [facility] [address] [facility] [address] [place] [address] Butch Mays MD [address] [place] [address] [place] [id number] follow up after hospital visit, go over MRI results [facility] Comment on above: follow up after hosp ital visit, go over MRI results Start: 07-02-2024 [facility] Start: 07-02-2024 Hospital admission, emergency, from emergency room, medical nature [facility] Start: 06-29-2024 [facility] Start: 06-13-2024 [facility] Start: 05-21-2024 [facility] Start: 05-13-2024 [facility] Start: 05-13-2024 [facility] Start: 05-04-2024 [facility] Start: 05-04-2024 [facility] Start: 04-21-2024 Patient referral [facility] Work Phone: Start: 04-15-2024 [facility] Start: 04-13-2024 Urine microalbumin profile DTaP,Tdap,Td Vaccine (2 - Td or Tdap) [facility] Start: 04-06-2024 Referral to service [facility] Start: 04-05-2024 Patient discharge [facility] Start: 04-04-2024 Contact precautions [facility] Start: 04-04-2024 Respiratory secretio n precautions [facility] Start: 04-04-2024 Referral to service [facility] Start: 04-03-2024 Continuous positive airway pressure ventilation treatment [facility] Start: 04-03-2024 Following clinical pathway protocol [facility] Start: 04-03-2024 End: 04-03-2024 [facility] Start: 04-03-2024 Assessment of risk o f venous thromboembolism [facility] Start: 04-03-2024 Incentive spirometry [facility] Start: 04-03-2024 Inhalation therapy procedure [facility] Start: 04-03-2024 Insertion of cathete r into peripheral vein [facility] Start: 04-03-2024 Oxygen therapy [facility] Start: 04-03-2024 Providing care accor ding to standard [facility] Start: 04-03-2024 Provision of activit y privileges [facility] Start: 04-03-2024 Referral to occupati onal therapist [facility] Start: 04-03-2024 Referral to service [facility] Start: 04-03-2024 Tobacco use cessatio n education [facility] Start: 04-03-2024 Admission procedure [facility] Start: 04-03-2024 Patient referral to dietitian [facility] Start: 11-10-2023 Covid-19 Vaccine ( season) Covid-19 Vaccine ( season) [facility] Start: 07-12-2023 [facility] Start: 03-26-2023 Patient referral [facility] Work Phone: Start: 01-30-2023 Patient referral [facility] Work Phone: Start: 12-03-2022 [facility] Start: 05-16-2022 Patient referral [facility] Work Phone: Start: 10-25-2021 Patient discharge [facility] Work Phone: Start: 10-24-2021 Consultation [facility] Work Phone: Start: 10-23-2021 End: 10-24-2021 [facility] Work Phone: Start: 10-23-2021 Referral to occupati onal therapist [facility] Work Phone: Start: 10-23-2021 Referral to service [facility] Work Phone: Start: 10-23-2021 Following clinical pathway protocol [facility] Work Phone: Start: 10-23-2021 Ambulation without limitation [facility] Work Phone: Start: 10-23-2021 Assessment of risk o f venous thromboembolism [facility] Work Phone: Start: 10-23-2021 Incentive spirometry [facility] Work Phone: Start: 10-23-2021 Insertion of cathete r into peripheral vein [facility] Work Phone: Start: 10-23-2021 Oxygen therapy [facility] Work Phone: Start: 10-23-2021 Providing care accor ding to standard [facility] Work Phone: Start: 10-23-2021 Referral to service [facility] Work Phone: Start: 10-23-2021 Admission procedure [facility] Work Phone: Start: 10-23-2021 Patient referral to dietitian [facility] Work Phone: Start: 01-04-2020 End: 01-04-2020 Telehealth Ancillary 01/04/2020 Telehealth Ancillary Genetics Deepika Lopes, [facility] [place] [address] [facility] Start: 11-10-2019 FLU (#1) FLU (#1) [facility] Start: 11-10-2015 Pneumococcal Vaccine : 50+ (2 of 2 - PCV) Pneumococcal Vaccine: 50+ (2 of 2 - PCV) [facility] Start: 08-13-2015 Shingrix Vaccine (1 of 2) Reinoso grix Vaccine (1 of 2) [facility] Start: 03-12-2013 End: 03-30-2013 *BMP *BMP [facility] Work Phone: Start: 03-12-2013 End: 03-30-2013 *UA - Urinalysis w/o Micro *UA - Urinalysis w/o Micro [facility] Work Phone: Start: 03-12-2013 End: 03-30-2013 CBC W Auto Differential panel - Blood *CBC without Diff [facility] Work Phone: Start: 03-12-2013 End: 03-12-2013 Chest x-ray X-Ray, Chest, PA & Lateral [facility] Work Phone: Start: 03-12-2013 End: 03-30-2013 Coagulation factor induced.INR assay in platelet poor plasma *PT/INR [facility] Work Phone: Start: 03-12-2013 End: 03-12-2013 Electrocardiogram, complete EKG (In office) [facility] Work Phone: Start: 03-12-2013 End: 04-02-2013 Pacemaker Generator Change Pacemaker Generator Change [facility] Work Phone: Start: 2010 Screening for malign ant neoplasm of colon [facility] Start: 2005 Screening for malign ant neoplasm of breast Mammogram Screening [facility] Start: 1986 Microscopic observat ion Cyto stain Nom (Cvx) Pap Smear [facility] Start: 1986 Screening for malign ant neoplasm of cervix Cervical Cancer Screening [facility] Start: 1984 Hepatitis B (1 of 3 - Risk 3-dose series) Hepatitis B (1 of 3 - Risk 3-dose series) [facility] Start: 1984 Hepatitis B Vaccine (1 of 3 - 19+ 3-dose series) Hepatitis B Vaccine (1 of 3 - 19+ 3-dose series) [facility] Start: 1984 Urine microalbumin profile DTaP,Tdap,Td Vaccine (1 - Tdap) [facility] Start: 08-13-1983 Annual PCP Team Tour Director javy Disease Visit Annual PCP Team Chronic Disease Visit [facility] Start: 08-13-1983 Anxiety Screening Anxiety Screening [facility] Start: 08-13-1983 BP Controlled (<130/80) BP Controlle d (<130/80) [facility] Start: 08-13-1983 Depression Screening Depression Scre angelic [facility] Start: 08-13-1983 Hepatitis B surface antibody level LDL Cholesterol [facility] Start: 08-13-1983 Hepatitis C screening Hepatitis C Sc ijeoma [facility] Start: 08-13-1983 HIV screening HIV Screening [facility] Start: 1981 MenB (1 of 2 - MenB 2-Dose Series) MenB (1 of 2 - MenB 2-Dose Series) [facility] Start: 08-13-1975 Diabetic foot examination Diabetic F oot Exam [facility] Start: 08-13-1975 Glaucoma screening Dilated Retinal E xam [facility] Start: 08-13-1975 Hepatitis B screening Urine Albumin:Creatinine Ratio [facility] Start: 1972 Tetanus Diphtheria a nd Pertussis Vaccines (1 - Tdap) Tetanus Diphtheria and Pertussis Vaccines (1 - Tdap) [facility] Start: 1970 Hemoglobin A1c measurement HbA1C [facility] Start: 1966 Hepatitis A (1 of 2 - Risk 2-dose series) Hepatitis A (1 of 2 - Risk 2-dose series) [facility] Start: 1966 MMR (1 of 1 - Standa rd series) MMR (1 of 1 - Standard series) [facility] Start: 1966 Varicella (1 of 2 - 2-dose childhood series) Varicella (1 of 2 - 2-dose childhood series) [facility] Bilirubin measuremen t, urine [facility] Work Phone: CARDIAC IMPLANTABLE DEVICE CHECK [facility] Work Phone: Catheterization of l eft heart [facility] Work Phone: DXA Bone [Mass/Area] Bone density [facility] End: 12-14-2019 Genetic Sendout: Common Hereditary Cancers Panel Genetic Sendout: Common Hereditary Cancers Panel Lab Timed Other malignant neuroendocrine tumors Family history of colon cancer 1 Occurrences starting 12/14/2019 until 12/14/[address] [facility] Comment on above: 1 Occurrences starti ng 12/14/2019 until 12/14/2019 Genetic Sendout: Com mon Hereditary Cancers Panel Genetic Sendout: Common Hereditary Cancers Panel Lab Routine Other malignant neuroendocrine tumors Family history of colon cancer 12/14/2019 1:[address] [facility] Hemoglobin [Presence ] in Urine [facility] Work Phone: Lipid 1996 panel - S maisha or Plasma [facility] Measurement of keton es in urine using dipstick [facility] Work Phone: MG Breast - bilatera l Screening [facility] Work Phone: MG Breast - bilatera l Screening [facility] Microscopic urinalysis [facility] Work Phone: End: 08-06-2025 MR Cervical spine WO contrast MRI CERVICAL SPINE WO IVCON Radiology Routine Spinal stenosis of cervical region 1 Occurrences starting 07/07/2024 until 08/06/2025 [facility] Work Phone: Comment on above: 1 Occurrences starti ng 07/07/2024 until 08/06/2025 End: 08-06-2025 MR Thoracic spine WO contrast MRI THORACIC SPINE WO IVCON Radiology Routine Thoracic myelopathy 1 Occurrences starting 07/07/2024 until 08/06/2025 [facility] Comment on above: 1 Occurrences starti ng 07/07/2024 until 08/06/2025 NM Heart Views W str ess and W radionuclide IV [facility] Patient Education [facility] Work Phone: [facility] referral [facility] Work Phone: pH of Urine [facility] Work Phone: Polysomnography [facility] Specific gravity of Urine [facility] Work Phone: Urinalysis, blood, qualitative [facility] Work Phone: Urine culture [facility] Urine dipstick for glucose [facility] Work Phone: Urine dipstick for leukocyte esterase [facility] Work Phone: Urine dipstick for nitrite [facility] Work Phone: Urine dipstick for protein [facility] Work Phone: Urine examination [facility] Work Phone: Urine microscopy: epithelial cells [facility] Work Phone: Urine Microscopy: wh ite cells [facility] Work Phone: Urobilinogen [Presen ce] in Urine [facility] Work Phone: US Carotid arteries [facility] US Heart [facility] Immunizations Immunization Date Immunization Notes Care Provider [facility] 04-04-2024 influenza, seasonal, injectable, preservative free Dr. Charla Wadsworth MD Work Phone: [facility] 03-26-2023 influenza, injectabl e, quadrivalent, preservative free Dr. Charla Wadsworth Work Phone: [facility] 12-02-2020 influenza, injectabl e, quadrivalent, preservative free Dr. Charla Wadsworth Work Phone: [facility] 12-02-2020 influenza, seasonal, injectable Dr. Charla Wadsworth Work Phone: [facility] 07-20-2020 Covid (Zane & Zane) Dr. Charla Wadsworth Work Phone: [facility] 01-07-2020 Flucelvax Quad 2019- 2020 (PF) (flu vac qs 2020(4 yr up)CD(PF)) 60 mcg ([address] Charla Wadsworth Work Phone: [facility] Work Phone: 01-07-2020 influenza, injectable,quadrivalent, preservative free, pediatric Dr. Charla Wadsworth Work Phone: [facility] 10-22-2018 influenza, injectabl e, quadrivalent, preservative free Dr. Charla Wadsworth Work Phone: [facility] 10-22-2018 influenza, seasonal, injectable Dr. Charla Wadsworth Work Phone: [facility] 12-18-[address] Charla Wadsworth Work Phone: [facility] 11-09-[address] Charla Wadsworth Work Phone: [facility] 11-09-2014 pneumococcal polysaccharide vaccine, [address] Charla Wadsworth Work Phone: [facility] Payers Date Payer Category Payer Self-pay [id number] 2023 Medicaid [id number] 2023 Medicaid [id number] 2023 Medicare (Managed Care) 1.2. [id number] 2023 Unknown [id number] 2019 [place] [id number] 2019-Present [address] [place] [address] [id number] 2019 Medicare HU[employer]NA MEDICARE HMO [employer] MEDICARE [id number] 2019-Present [address] [address] [place] [address] [id number] 2016 Medicaid [id number] 2013 Medicare [id number] 1965 Unknown [id number] 2.16.840.1.734203.3.579.2.6 51 1966 Unknown [id number] 2.16.840.1.752969.3.579.2.6 27 Unknown [id number] 2.16.840.1.340849.3.579.2.4 62 Unknown [id number] 2.16.840.1.665838.3.579.2.4 62 Unknown [id number] 2.16.840.1.193104.3.579.2.4 62 Unknown [id number] 2.16.840.1.059036.3.579.2.4 62 Unknown [id number] 2.16.840.1.458045.3.579.2.4 62 Unknown [id number] 2.16.840.1.316335.3.579.2.4 62 Unknown [id number] 2.16.840.1.245992.3.579.2.4 62 Unknown [id number] 2.16.840.1.251374.3.579.2.4 62 Unknown [id number] 2.16.840.1.062099.3.579.2.4 62 Unknown [id number] 2.16.840.1.547739.3.579.2.4 62 Unknown [id number] 2.16.840.1.895187.3.579.2.4 62 Unknown [id number] 2.16.840.1.124254.3.579.2.4 62 Unknown [id number] 2.16.840.1.016352.3.579.2.4 62 Unknown [id number] 2.16.840.1.325280.3.579.2.4 62 Unknown [id number] 2.16.840.1.547101.3.579.2.4 62 Unknown [id number] 2.16.840.1.220756.3.579.2.4 62 Unknown [id number] 2.16.840.1.133720.3.579.2.4 62 Unknown [id number] 2.16.840.1.395672.3.579.2.4 62 Unknown [id number] 2.16.840.1.151672.3.579.2.4 62 Unknown [id number] 2.16.840.1.269779.3.579.2.4 62 Unknown [id number] 2.16.840.1.105963.3.579.2.4 62 Unknown [id number] 2.16.840.1.096497.3.579.2.4 62 Unknown [id number] 2.16.840.1.854543.3.579.2.4 62 Unknown [id number] 2.16.840.1.720957.3.579.2.4 62 Unknown [id number] 2.16.840.1.355173.3.579.2.4 62 Unknown [id number] 2.16.840.1.060928.3.579.2.4 62 Unknown [id number] 2.16.840.1.414470.3.579.2.4 62 Unknown [id number] 2.16.840.1.067954.3.579.2.4 62 Unknown [id number] 2.16.840.1.029446.3.579.2.4 62 Unknown [id number] 2.16.840.1.753487.3.579.2.4 62 Unknown [id number] 2.16.840.1.131275.3.579.2.4 62 Unknown [id number] 2.16.840.1.734952.3.579.2.4 62 Unknown [id number] 2.16.840.1.359373.3.579.2.4 62 Unknown [id number] 2.16.840.1.537983.3.579.2.4 62 Unknown [id number] 2.16.840.1.606306.3.579.2.4 62 Unknown [id number] 2.16.840.1.100150.3.579.2.4 62 Unknown [id number] 2.16.840.1.321413.3.579.2.4 62 Unknown [id number] 2.16.840.1.146675.3.579.2.4 62 Unknown [id number] 2.16.840.1.121761.3.579.2.4 62 Unknown [id number] 2.16.840.1.268181.3.579.2.4 62 Unknown [id number] 2.16.840.1.338090.3.579.2.4 62 Unknown [id number] 2.16.840.1.106204.3.579.2.4 62 Unknown [id number] 2.16.840.1.928787.3.579.2.4 62 Unknown [id number] 2.16.840.1.654475.3.579.2.4 62 Unknown [id number] 2.16.840.1.417160.3.579.2.4 62 Unknown [id number] 2.16.840.1.724482.3.579.2.4 62 Unknown [id number] 2.16.840.1.432798.3.579.2.4 62 Unknown [id number] 2.16.840.1.074953.3.579.2.4 62 Unknown [id number] 2.16.840.1.108217.3.579.2.4 62 Unknown [id number] 2.16.840.1.249680.3.579.2.4 62 Unknown [id number] 2.16.840.1.484959.3.579.2.4 62 Unknown [id number] 2.16.840.1.862589.3.579.2.4 62 Unknown [id number] 2.16.840.1.365716.3.579.2.4 62 Social History Date Type Detail Facility Start: 05-21-2017 End: 12-14-2019 Tobacco smoking status [facility] Former smoker [facility] Work Phone: Start: 05-21-1990 End: 05-22-2015 History of tobacco use Current smoker [facility] Start: 05-21-2017 End: 12-14-2019 Tobacco use and exposure Never used [facility] Start: 1965 Sex Assigned At Not on file [facility] Exposure to SARS-CoV -2 (event) Not sure [facility] Start: 08-17-2021 End: 07-12-2023 Tobacco smoking status NHIS Unknown if ever smoked [facility] Start: 08-04-2020 Occasional [facility] Start: 08-04-2020 None [facility] Start: 10-24-2019 Alone [facility] Start: 08-04-2020 Cigarettes [facility] Start: 1965 Sex Assigned At Female [facility] Start: 05-21-2024 End: 10-22-2024 Tobacco smoking status NHIS Current some day smoker [facility] Start: 05-22-2024 End: 07-03-2024 Sex Female (finding) [facility] Start: 05-21-1990 End: 05-22-2015 History of tobacco use Cigarette Smoker [facility] Start: 05-21-2017 End: 08-05-2024 Cigarettes smoked current (pack per day) - Reported 0.5 [facility] Start: 07-03-2024 End: 08-05-2024 Alcoholic beverage intake Current non-drinker of alcohol (finding) [facility] Start: 07-03-2024 End: 08-05-2024 [facility] [employer] [facility] Has the [employer], [employer], or [employer] threatened to shut off services in your home in past 12Mo No [facility] worried wheth er (my/our) food would run out before (I/we) got money to buy more. Never true [facility] Start: 05-21-2017 Tobacco Comment quit 2 years ago [facility] Procedure Code Equipment Code Equipment Origin al Text Equipment Identifier Dates ([id number]) [id number] FDA Start: 08-17-2021 ([id number]) [id number] FDA Start: 12-02-2023 Pacemaker- 02 4 [id number] Start: 12-02-2023 Comment on above: Description: BSC L11 1 RA 4469 RV 4470 Stimulator- [id number] Start: 01-17-2023 Comment on above: Description: ORTIZ 977 15 2 Leads [id number] Pt is full body eligible 1.5T Normal mode 30 min active scanning in 90 min window Pacemaker-[id number] Start: 04-03-2013 [id number] Start : 05-10-2003 [id number] Start : 05-10-2003 [id number] Start : 12-02-2023 Goals Date Patient Goal Desired Activity /State Functional Status Date Assessment Result Facility 07-04-2024 Are you deaf, or do you have serious difficulty hearing No 07/04/2024 1:25 PM Juan Luis Tineo RN No [facility] 07-04-2024 Are you blind, or do you have serious difficulty seeing, even when wearing glasses No 07/04/2024 1:25 PM Juan Luis Tineo RN No [facility] 07-04-2024 Do you have serious difficulty walking or climbing stairs No 07/04/2024 1:25 PM Juan Luis Tineo RN No [facility] 07-04-2024 Do you have difficul ty dressing or bathing No 07/04/2024 1:25 PM Juan Luis Tineo, AKIKO No [facility] 07-04-2024 Because of a physica l, mental, or emotional condition, do you have difficulty doing errands alone such as visiting a physician's office or shopping No 07/04/2024 1:25 PM Juan Luis Tineo RN No [facility] 04-05-2024 Functional status Bathroom Privi lege;Back to bed [facility] Work Phone: 10-25-2021 Functional status Chair [facility] Work Phone: 10-24-2021 Functional status None [facility] Work Phone: Mental Status Date Assessment Result Facility 07-04-2024 Because of a physica l, mental, or emotional condition, do you have serious difficulty concentrating, remembering, or making decisions No 07/04/2024 1:25 PM EDT Juan Luis Abraham RN No [facility] 06-29-2024 Cognitive function Voice/Name [facility] Work Phone: 04-05-2024 Cognitive function Appropriate;Cooperativ e [facility] Work Phone: 07-12-2023 Cognitive function Level Of Cons ciousness Awake;Alert;Appropriate [facility] Work Phone: 12-03-2022 Cognitive function Voice/Name [facility] Work Phone: 11-24-2022 Cognitive function Level Of Cons ciousness Awake;Alert;Appropriate;Fol lows Commands [facility] Work Phone: 10-25-2021 Cognitive function Voice/Name [facility] Work Phone: Clinical Notes 10-10-2020 to 10-22-2024 Telephone Encounter - Katrin Peng - 08/10/2024 8:00 AM EDTTelephone Encounter - Katrin Peng - 08/10/2024 8:00 AM Butch Louis MD - 08/05/2024 10:56 PM EDT Note Date & Type Note Facility 10-22-2024 Radiology Diagnostic study note [facility] 10-22-2024 Radiology Diagnostic study note [facility] 10-22-2024 Radiology Diagnostic study note [facility] 10-22-2024 Radiology Diagnostic study note [facility] 10-16-2024 Radiology Diagnostic study note [facility] 10-16-2024 Radiology Diagnostic study note [facility] 10-16-2024 Radiology Diagnostic study note [facility] 10-16-2024 Radiology Diagnostic study note [facility] 10-16-2024 Radiology Diagnostic study note [facility] 10-16-2024 Radiology Diagnostic study note [facility] 08-10-2024 Telephone encounter Note I faxed order to [facility], however patient was released from them in 2014. No reason given. Please advise [facility] 08-10-2024 Miscellaneous Notes I faxed order to [facility], however patient was released from them in 2014. No reason given. Please advise documented in this encounter [facility] 08-05-2024 Note HNO ID: [id number] Author: BUTCH MAYS MD Service: ? Author Type: Physician Type: Progress Notes Filed: 08/05/2024 23:04 Note Text: Butch Mays MD Orthopaedic Spine Surgery [address] [place] [address], [address], [place] [address] FAX: [phone] Spine Surgery Outpatient Note Service Date: 08/05/2024 [...] Essential Hypertension Copd (Chronic Obstructive Pulmonary Disease) ([facility]) Controlled Type 2 Diabetes Mellitus Without Complication, Without Long-Term Current Use of Insulin ([facility]) History of Pulmonary Embolus (Pe) Atrial Fibrillation ([facility]) Hyperlipidemia Tobacco Use Disorder Eloy (Obstructive Sleep Apnea) Heart Failure With Preserved Ejection Fraction ([facility]) Armani (Acute Kidney Injury) Obesity, Class III, BMI >= 40 PAST MEDICAL HISTORY Diagnosis Date Anxiety Atrial fibrillation ([facility]) 07/03/2024 CAD (coronary artery disease) 07/03/2024 Congestive heart failure ([facility]) 07/03/2024 Controlled type 2 diabetes mellitus without complication, without long-term current use of insulin ([facility]) 07/03/2024 COPD (chronic obstructive pulmonary disease) ([facility]) 07/03/2024 Depression Gastric mass Hypertension Hypothyroid ELOY (obstructive sleep apnea) 07/03/[address] bangura . pacemaker checked at [facility] Sick sinus syndrome ([facility]) Sleep apnea uses cpap at night PAST SURGICAL HISTORY Procedure Laterality Date ANESTHESIA LUMBAR REGION NOS 02/07/2016 L4-L5 fusion; [facility] APPENDECTOMY CARPAL TUNNEL left HYSTERECTOMY HX LAPAROSCOPY [...] by mouth two (more content not included)... [facility] 08-05-2024 History of Presen t illness Narrative Images from the original note were not included. Butch Mays MD Orthopaedic Spine Surgery [address] [place] [address], [address], [place] [address] FAX: [phone] Spine Surgery Outpatient Note Service Date: 08/05/2024 [...] Essential Hypertension Copd (Chronic Obstructive Pulmonary Disease) ([facility]) Controlled Type 2 Diabetes Mellitus Without Complication, Without Long-Term Current Use of Insulin ([facility]) History of Pulmonary Embolus (Pe) Atrial Fibrillation ([facility]) Hyperlipidemia Tobacco Use Disorder Eloy (Obstructive Sleep Apnea) Heart Failure With Preserved Ejection Fraction ([facility]) Armani (Acute Kidney Injury) Obesity, Class III, BMI >= 40 PAST MEDICAL HISTORY Diagnosis Date Anxiety Atrial fibrillation ([facility]) 07/03/2024 CAD (coronary artery disease) 07/03/2024 Congestive heart failure ([facility]) 07/03/2024 Controlled type 2 diabetes mellitus without complication, without long-term current use of insulin ([facility]) 07/03/2024 COPD (chronic obstructive pulmonary disease) ([facility]) 07/03/2024 Depression Gastric mass Hypertension Hypothyroid ELOY (obstructive sleep apnea) 07/03/[address] bangura . pacemaker checked at [facility] Sick sinus syndrome ([facility]) Sleep apnea uses cpap at night PAST SURGICAL HISTORY Procedure Laterality Date ANESTHESIA LUMBAR REGION NOS 02/07/2016 L4-L5 fusion; [facility] APPENDECTOMY CARPAL TUNNEL left HYSTERECTOMY HX LAPAROSCOPY [...] (C6) 5 5 Triceps (C7) 5 5 Diamond Cleaver (C8) 5 5 Interossei (T1) 5 5 [...] was generated all or in part using [employer] voice recognition software and [employer] Dictation software. Please excuse any minor errors in spelling, grammar, or punctuation. 58 y/o female presents to office to discuss MRI results of the cervical and thoracic spine. documented in this encounter [facility] 08-05-2024 Note HNO ID: [id number] Author: VANIA LADD MA Service: ? Author Type: Dry Starch Supervisor Type: Progress Notes Filed: 08/05/2024 23:04 Note Text: 58 y/o female presents to office to discuss MRI results of the cervical and thoracic spine. [facility] 08-04-2024 Note IMPRESSION: 1. Artifact from the [...] and assume there are 5 lumbar-type vertebrae. Ditch Worker: [facility] Transcribe Date/Time: Aug 04 2024 4:51P Dictated by : JUSTIN MOSHER MD This examination was interpreted and the report reviewed and electronically signed by: JUSTIN MOSHER MD on Aug 04 2024 4:56PM [facility] 08-04-2024 Note IMPRESSION: 1. Evaluation limited by [...] vertebrae with counting from the craniocervical junction. Ditch Worker: [facility] Transcribe Date/Time: Aug 04 2024 4:34P Dictated by : JUSTIN MOSHER MD This examination was interpreted and the report reviewed and electronically signed by: JUSTIN MOSHER MD on Aug 04 2024 4:39PM [facility] 08-04-2024 History of Presen t illness Narrative [...] PATIENT PRESENTS WITH AN IMPLANTABLE OR ATTACHED MULLING MACHINE OPERATOR: Yes Other [employer] Pacemaker Medtronic IPG RADIOLOGY DEPARTMENT: MR; Exam(s) Completed: Spine: Cervical spine and Thoracic spine. Lavender Administered: No PERIPHERAL IV DATA: Not applicable SIGNED BY: YUSRA Abdi August 04, 2024 2:24 PM documented in this encounter [facility] 08-04-2024 Note HNO ID: [id number] Author: FANNY DONOVAN RN Service: ? Author Type: Registered Nurse Type: Procedures Filed: 08/04/2024 14:58 Note Text: Radiology Service Progress Note PATIENT NAME: Ramses Bradshaw DATE OF SERVICE: August 04, 2024 TIME: 2:55 PM PATIENT IDENTITY VERIFICATION COMPLETED USING TWO (2) STANDARD IDENTIFIERS: Name and Date of confirmed by patient verbally. ALLERGIES: Reviewed and unchanged MEDICATIONS REVIEWED: YES PROCEDURE: MRI - Conditional Pacemaker [employer], AV pacing at 75 Physiologic monitoring per standard operating procedure. See vital sign flowsheet. PATIENT TOLERATED PROCEDURE: Without incident. PATIENT DISCHARGED TO: Home/Self Care SIGNED BY: Fanny Donovan RN [facility] 08-04-2024 Note HNO ID: [id number] Author: LUKAS CRUZ MRI Tech Service: ? [...] PATIENT PRESENTS WITH AN IMPLANTABLE OR ATTACHED MULLING MACHINE OPERATOR: Yes Other [employer] Pacemaker Medtronic IPG RADIOLOGY DEPARTMENT: MR; Exam(s) Completed: Spine: Cervical spine and Thoracic spine. Lavender Administered: No PERIPHERAL IV DATA: Not applicable SIGNED BY: YUSRA Abdi August 04, 2024 2:24 PM [facility] 08-04-2024 Procedure note Radiology Service Progress Note PATIENT NAME: Ramses Bradshaw DATE OF SERVICE: August 04, 2024 TIME: 2:55 PM PATIENT IDENTITY VERIFICATION COMPLETED USING TWO (2) STANDARD IDENTIFIERS: Name and Date of confirmed by patient verbally. ALLERGIES: Reviewed and unchanged MEDICATIONS REVIEWED: YES PROCEDURE: MRI - Conditional Pacemaker [employer], AV pacing at 75 Physiologic monitoring per standard operating procedure. See vital sign flowsheet. PATIENT TOLERATED PROCEDURE: Without incident. PATIENT DISCHARGED TO: Home/Self Care SIGNED BY: Fanny Donovan RN [facility] 08-04-2024 Procedure note Radiology Service Progress Note PATIENT NAME: Ramses Bradshaw DATE OF SERVICE: August 04, 2024 TIME: 2:55 PM PATIENT IDENTITY VERIFICATION COMPLETED USING TWO (2) STANDARD IDENTIFIERS: Name and Date of confirmed by patient verbally. ALLERGIES: Reviewed and unchanged MEDICATIONS REVIEWED: YES PROCEDURE: MRI - Conditional Pacemaker [employer], AV pacing at 75 Physiologic monitoring per standard operating procedure. See vital sign flowsheet. PATIENT TOLERATED PROCEDURE: Without incident. PATIENT DISCHARGED TO: Home/Self Care SIGNED BY: Fanny Donovan RN documented in this encounter [facility] 07-23-2024 Discharge summary Note Date/Time July 23, 2024 12:06am [facility] Medical Records Department [address] [place] [address] Emergency Department Summary 07/22/24 MR#: [id number] Acct: [id number] Name: RAMSES BRADSHAW Rep #:[id number] : 1965 58 From: Chaim Marina PCP: Dr. Charla Wadsworth MD Status:R EG ER Location: ED HPI HPI - Female History of Present Illness Chief Complaint: Complaint PFSH [facility] Medical History (Updated 07/23/24 @ 00:[address] Chaim Maurer, DO) Hypersomnolence Ambulatory dysfunction Pulmonary embolism Atrial [...] Infected dental carries Atherosclerotic heart disease of 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 Monomorphic ventricular [...] denosumab 60 mg/mL subcutaneous 60 mg subcut [id number] #1 mL 02/15/23 09/09/23 Rx syringe (Prolia) [...] tablet 5 mg PO BID #60 tabs 02/04/2 4 04/03/24 Rx buspirone 15 mg tablet [...] physical activity do you participate in: none ivania/evangelical: None seatbelt use: always do you feel [...] reviewed, Vital signs reviewed Constitutional: please see [facility] HENT: MMM Eyes: Pupils equal round and [...] History obtained from others: none Consults: none [facility] Narrative: The patient was initially hemodynamically stable, [...] Discharge home This note was generated with [employer] dictation software. It may contain incorrectwords, spelling, [...] % (Auto) 52.8 Lymph % (Auto) 37.0 [place] % (Auto) 7.3 Eos % (Auto) 1.9 [...] pelvis. Diffuse steatosis and hepatomegaly. Reading Location: [facility] Discharge Plan Triage Chief Complaint: Complaint ED [...] Prolia 60 mg/mL syringe 60 mg subcut [id number] Qty: 1 2RF Patient Comments: due for [...] for further outpatient evaluationand management. Print Language: Cymraes Disposition Disposition: Home, Self Care What to do if you have Problems For any increased pain, shortness of breath, bleeding, nausea or vomiting, chestpain, or any unexpected problems, contact your Primary Care Provider. Call [facility] ([phone]) or report to the closest Emergency Room. Call 911 if necessary. 07/23/245 <Electronically signed by Chaim Maurer DO> Cosigner Signature (if applicable): CC: Dr. Charla Wadsworth MD ~ Signed [facility] Work Phone: 1(549) 658-469105-14-2025 Radiology Diagnostic study [facility]05-14-2025 Evaluation note* Diagnosis Onset Date Resolution Status Admit Date Hypersomnolence acute July 22, 2024 9:32am Ambulatory dysfunction chronic 2024 9:32am Anxiety and depression chronic 2024 9:32am Chronic lower back pain chronic 2024 9:32am Hypertension chronic July 22 9:32am Type 2 diabetes mellitus chronic July 22, 2024 9:32am Diarrhea acute October 02 1:02pm Nausea & vomiting acute October 022024 1:02pm [facility] Work Phone: 1(424) 629-899805-14-2025 Evaluation note* Diagnosis Onset Date Resolution Status Admit Date Hypersomnolence acute July 22, 2024 9:32am Ambulatory dysfunction chronic 2024 9:32am Anxiety and depression chronic 2024 9:32am Chronic lower back pain chronic 2024 9:32am Hypertension chronic July 22 9:32am Type 2 diabetes mellitus chronic July 22, 2024 9:32am Diarrhea acute October 02 1:02pm Nausea & vomiting acute October 022024 1:02pm Health care maintenance acute A ugust 2024 10:10am Chronic abdominal pain chronic Au carl 2024 10:10am Essential (primary) hypertension chr onic October 21, 2024 10:10am Type 2 diabetes mellitus chronic October 21, 2024 10:10am [facility] Work Phone: 1(252) 892-403405-05-2025 Telephone encounter Note* Telephone Encounter - Dari Trujillo - 07/13/2024 9:38 AM EDT I will rout to Dr. Mays for signature. Dari Sheth July 13, 2024 9:50 AM [facility]05-05-2025 Miscellaneous Notes* Telephone Encounter - Dari Trujillo - 07/13/2024 9:38 AM EDT I will rout to Dr. Mays for signature. Dari Sheth July 13, 2024 9:50 AM [facility] Hospital Discharge instructionsAdditional Instructions Please continue taking your pain medication at home as prescribed. Your evaluation in the Emergency Department did not reveal any acute reason for admission. However, I want to emphasize that you may be early in the course of a disease process or illness even if it is not present. For this reason you should follow-up within 24 hours for reevaluation with either your primary care physician or if necessary back here in the Emergency Department. You should return to the Emergency Department immediately if your symptoms worsen or new symptoms develop.[facility] Work Phone: 1([phone]) 230-423904-26-2025 NoteHNO ID: [id number] Author: DILMA GARAY MD Service: Hospital Medicine Author Type: Physician Type: Progress Notes Filed: 07/06/2024 15:23 Note Text: Documentation Query Please clarify the diagnosis of ARMANI for the patient and provide additional relevant clinical indicators to support the diagnosis as applicable. Acute kidney injury/failure is ruled out for this encounter This document will become part of the patient's medical record.[facility]04-26-2025 NoteHNO ID: [id number] Author: JUAN LUIS ABRAHAM RN Service: Nursing Author Type: Registered Nurse Type: Nursing Progress Note Filed: 07/04/2024 13:30 Note Text: Report given to Smitha Arias.[facility] 07-04-2024 NoteHNO ID: [id number] Author: HELEN DOCKERY LISW Service: Care Management Author Type: Hotel Services Sales Representative Type: Care Mgt Progress Note Filed: 07/04/2024 13:31 Note Text: CARE MANAGEMENT DISCHARGE NOTE SERVICE DATE: July 04, 2024 SERVICE TIME: 1:26 PM Admission Date: 07/03/2024 LOS: 1 day Discharge Arrangement Discharge Arrangement: Assisted Living Facility Services Arranged Medical Services: Referred to Outpatient PT/OT Provider Name: [facility] Caregiver Assessment Caregiver is ready, willing and able to meet the patient's needs as recommended by the inter-professional team: Yes Name of Caregiver: staff at [place]. Transportation Arrangements Transportation Arrangements: [place] Transportation Agency and Phone #:: [facility] ( [facility] ) [phone] / [phone] Date of Trip: 07/04/24 Time of Trip: 0200 Is Patient Medicaid Pending?: No Was transportation financial coverage discussed with family?: Patient Leave Specialist Location: [facility] Destination: [facility] Financial Care Management Responsibility: None Handoff Communication: Handoff to: Primary Care Physician Primary Care Physician Name/Phone: Dr. Charla Wadsworth Additional Information: none Discharge Information Row Name Admission (Current) from 07/03/2024 in [place] 91 NEURO/CARD Other Follow-Up Type Assisted Living Name [facility] Phone/ Met with patient to discuss SNF recommendation by therapy. Patient absolutely refuses SNF because of her cat at the [facility] Called [facility] and spoke with Juana WHARTON who called the lumber sales supervisor. Can can return to [facility] today if MD write for outpatient therapy and the facility will provide transport to [email or web address] the company they use. Discussed with patient. Set up 3pm wheelchair van to [facility] today. SIGNATURE: JUSTIN Clark PATIENT NAME: Ramses Bradshaw DATE: July 04, 2024 TIME: 1:26 [facility]04-26-2025 NoteHNO ID: [id number] Author: DEBI DENISE MD Service: Orthopaedic Surgery [...] MD Orthopaedic Surgery July 04, 2024 7:58 [facility]04-25-2025 NoteHNO ID: [id number] Author: DILMA GARAY MD Service: Hospital Medicine Author Type: Physician Type: Plan of Care Filed: 07/03/2024 16:53 Note Text: Patient is seen and examined at bedside this morning with RN. Complaining of persistent back pain. Patient has a spine stimulator, however with remote is not working at this time. Patient unable to have anybody bring in the gas charger for the remote. No family or friend [...] assessment and plan in HANDP by my colleague.[facility]04-25-2025 NoteHNO ID: [id number] Author: NANI ROD RN Service: Care Management [...] Determined Advance Directives Current Advance Directive: None Book Repairer Attempted to Assist with AD Completion: Yes Action: Education Provided Current Living Arrangements and Support Lives with: Alone Type of Residence: Assisted Living Facility Does the patient have to climb stairs at home?: No Care Facility Name: [facility] in [place] Support: Other: See Comment staff at [place] How do you manage to accomplish the following: Independent: Ambulation, Going to the bathroom, Medication Management, Dress Needs Assistance: Bathe/Shower Dependent: Meals/Meal Prep, Transportation to appointments/community Current Services/Equipment Current Post-Acute Service(s): DME Current DME Type: Wheelchair-electric, Rollator Scooter, Grab bars, Shower seat Discharge Planning Patient Goal(s): Independent living, Be able to go home, General wellness Dowell of Choice Explained: Dowell of Choice Given: No Reason Not Given: Unable to complete with this assessment - revisit Are you interested in bedside delivery of your medications? No Discharge Planning Participant(s): Patient Patient/Family Comments: Caregiver Assessment: Caregiver is ready, willing and able to meet the patient's needs as recommended by the inter-professional team: Yes Name of Caregiver: Staff at [place] Transport at Discharge: Transportation Arrangements: [facility] Needs Prior to Discharge: Needs Prior to Discharge: To Be Determined Post-Acute Discharge Plan: Patient admitted for back pain with difficulty ambulating due to leg weakness. She has a stimulator in her back, the remote is at bedside, but is not charged. Pressurization Mechanic is not with patient. has indicated to patient that she will need to have someone bring the gas charger to the hospital. Patient lives in [facility]. She uses a rollater in her apartment to ambulate and has an electric wheelchair she uses when she goes out. She does not have her wheelchair with her. She is dependent with most ADLs, denies any social concerns, +PCP, +RX coverage. Ortho following, await therapy evals when appropriate. Patient goal is to return to [place]. Will need [facility]lette transport arranged at [place]. to continue to follow. SIGNATURE: Nani Rod RN PATIENT NAME: Ramses Bradshaw DATE: July 03, 2024 TIME: 1:13 [facility]04-25-2025 Discharge summary Author Kati Burkett [facility] Note Date/Time July 02, 2024 10: 09pm [facility] Medical Records Department [address] [place] [address] Emergency Department Summary 07/02/24 MR#: [id number] Acct: [id number] Name: RAMSES BRADSHAW Rep #:[id number] : 1965 58 From: Kati Burkett DO [...] denies loss of bowel or bladder function. [facility] Medical History (Updated 07/02/24 @ 16:05 by [...] Infected dental carries Atherosclerotic heart disease of 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 Monomorphic ventricular [...] denosumab 60 mg/mL subcutaneous 60 mg subcut [id number] #1 mL 02/15/23 09/09/23 Rx syringe (Prolia) [...] physical activity do you participate in: none ivania/evangelical: None seatbelt use: always do you feel [...] discussed case with Dr. Alexander her painter maintenance who recommended obtaining the MRI from the [...] discuss with hospitalist. I was contacted by compounding pharmacy technician again and told thatthey will not be able to do the MRI at our facility given that patient has both a pacemaker and a spinal stimulator and it would be off label and I needed to transfer her to another facility where they could do off label imaging. I was told [facility] would be able to do it and we contacted them and was told to try [facility] As patient's had prior studies done there before. Patient is comfortable with plan to go to [facility]. Discussed with transfer line as well as back specialist who recommended that we admit to medicine at their facility and they do have a protocol for obtaining the MRI where she would have to be in the MRI further 30 minutes and then out for 90 minutes then back in. Patient was medicated with morphine and Zofran. She willbe transferred to [facility] for definitive care. Concern for possible cord [...] % (Auto) 50.2 Lymph % (Auto) 40.0 [place] % (Auto) 6.4 Eos % (Auto) 2.5 [...] Prolia 60 mg/mL syringe 60 mg subcut [id number] Qty: 1 2RF Patient Comments: due for [...] MD [Primary Care Provider] - Print Language: Cymraes Disposition Disposition: DC/Tx to Another Type of HCF What to do if you have Problems For any increased pain, shortness of breath, bleeding, nausea or vomiting, chestpain, or any unexpected problems, contact your Primary Care Provider. Call [facility] ([phone]) or report to the closest Emergency Room. Call 911 if necessary. 07/02/242208 <Electronically signed by Kati Burkett DO> Cosigner Signature (if applicable): CC: Dr. Charla Wadsworth MD ~ Signed [facility] Work Phone: 1(833) 947-921704-21-2025 Discharge summary Author Virgil Daniels [facility] Note Date/Time June 29, 2024 6:2 9pm [facility] Medical Records Department [address] [place] [address] Emergency Department Summary 06/29/24 MR#: [id number] Acct: [id number] Name: RAMSES BRADSHAW Rep #:[id number] : 1965 58 From: Virgil Daniels MD [...] Prior similar symptoms: Yes [facility] Medical History Diabetes Type 2 [...] Infected dental carries Atherosclerotic heart disease of 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 Monomorphic ventricular [...] denosumab 60 mg/mL subcutaneous 60 mg subcut [id number] #1 mL 02/15/23 09/09/23 Rx syringe (Prolia) [...] physical activity do you participate in: none ivania/evangelical: None seatbelt use: always do you feel [...] tolerate the pain. She was not prescribed Dawson calcitonin nasal spray. She did take a Percocet at approximately 1500. She does have history of osteoporosis. In light of this we will treat her pain with IV morphine, lidocaine patch and will prescribe calcitonin Dawson nasal spray. Will not prescribe NSAIDs because [...] Prolia 60 mg/mL syringe 60 mg subcut [id number] Qty: 1 2RF Patient Comments: due for [...] Care Provider] - As Needed Print Language: Cymraes Disposition Disposition: Home, Self Care What to do if you have Problems For any increased pain, shortness of breath, bleeding, nausea or vomiting, chestpain, or any unexpected problems, contact your Primary Care Provider. Call [facility] ([phone]) or report to the closest Emergency Room. Call 911 if necessary. 06/29/24 3252 <Electronically signed by Virgil Daniels MD> Cosigner Signature (if applicable): CC: Dr. Charla Wadsworth MD ~ Signed [facility] Work Phone: 1(153) 417-757504-05-2025 Radiology Diagnostic study [facility]04-05-2025 Radiology Diagnostic study [facility]04-05-2025 Discharge summary Author Gigi Barton [facility] Note Date/Time June 13, 2024 7:36 pm [facility] Medical Records Department [address] [place] [address] Emergency Department Summary 06/13/24 MR#: [id number] Acct: [id number] Name: RAMSES BRADSHAW Rep #:[id number] : 1965 58 From: Gigi Barton MD [...] especially when she moves her right arm. [facility] Medical History Diabetes Type 2 diabetes mellitus [...] Infected dental carries Atherosclerotic heart disease of 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 Monomorphic ventricular [...] denosumab 60 mg/mL subcutaneous 60 mg subcut [id number] #1 mL 02/15/23 09/09/23 Rx syringe (Prolia) [...] physical activity do you participate in: none ivania/evangelical: None seatbelt use: always do you feel [...] NO ACUTE FRACTURE OR DISLOCATION. Reading Location: [facility] 06/13/24 18:42 IMPRESSION: Heterogeneous appearance of the T8 vertebral body, suspicious for fracture likely chronic. Please correlate clinically. If clinically indicated MRI of the thoracic spine may be helpful for further characterization. Degenerative changes of the thoracic spine. [facility] T[facility] Chief Complaint: Back ED [...] Prolia 60 mg/mL syringe 60 mg subcut [id number] Qty: 1 2RF Patient Comments: due for [...] physician as soon as possible. Print Language: Cymraes Disposition Disposition: Home, Self Care What to do if you have Problems For any increased pain, shortness of breath, bleeding, nausea or vomiting, chestpain, or any unexpected problems, contact your Primary Care Provider. Call [facility] ([phone]) or report to the closest Emergency Room. Call 911 if necessary. 06/13/241935 <Electronically signed by Gigi Barton MD> Cosigner Signature (if applicable): CC: Dr. Charla Wadsworth MD ~ Signed [facility] Work Phone: 1(334) 304-419304-03-2025 Evaluation note* Diagnosis Onset Date Resolution Status Admit Date Presence of permanent cardia c pacemaker 2013June 11, 2024 9:29am Sick sinus syndrome chronic June 11, 2024 9:29am Chest pain acute June 11 9:31am Dizziness acute June 11 9:31am DENNISON (dyspnea on exertion) acute June 11, 2024 9:31am Fatigue acute June 11 9:31am 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 June [...] diabetes mellitus chronic July 22, 2024 9:32am [facility] Work Phone: 1(150) 781-153503-13-2025 Radiology Diagnostic study [facility]01-26-2025 [facility]01-24-2025 Evaluation note* Diagnosis Onset Date Resolution Status Admit Date Acute exacerbation of chroni c obstructive pulmonary disease resolved [facility] 2024 6:10pm Hypoxia resolved April 03, 2024 6:10pm Blood glucose elevated acute 2024 9:34am Dark urine acute April 20, 2024 9:34am COPD (chronic obstructive pulmonary disease) chronic April 9:34am Essential (primary) hypertension chronic April 20, 9:34am Hyperlipidemia chronic April 112024 9:34am Dental caries inactive April 202024 9:34am Presence of permanent cardia c pacemaker 2013June 11, 2024 9:29am Sick sinus syndrome chronic June 11, 2024 9:29am Chest pain acute June 11 9:31am Dizziness acute June 11 9:31am DENNISON (dyspnea on exertion) acute June 11, 2024 9:31am Fatigue acute June 11 9:31am Atherosclerotic heart diseas e of 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 june 9:31am Essential (primary) hypertension chronic June 11, 2024 9:31am Hyperlipidemia chronic June 11, 2024 9:31am Presence of permanent cardia c pacemaker 2013June 11, 2024 9:31am [facility] Work Phone: 1(129) 371-253501-24-2025 Evaluation note* Diagnosis Onset Date Resolution Status Admit Date Acute exacerbation of chroni c obstructive pulmonary disease resolved [facility] 2024 6:10pm Hypoxia resolved April 03, 2024 [...] acute June 11, 2024 9:31am Fatigue acute Sandra 3rd, 202 5 9:31am 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 June 9:31am Essential (primary) hypertension chronic June 11, 2024 9:31am Hyperlipidemia chronic June 11, 2024 9:31am Presence of permanent cardia c pacemaker 2013 chronic June 11, 2024 9:31am Hypersomnolence acute July 22, 2024 9:32am Ambulatory dysfunction chronic Ma y 2024 9:32am Anxiety and depression chronic Ma y 2024 9:32am Chronic lower back pain chronic M ay 2024 9:32am Hypertension chronic July 22 9:32am Type 2 diabetes mellitus chronic July 22, 2024 9:32am [facility] Work Phone: 1(895) 420-902411-18-2024 Evaluation note* Diagnosis Onset Date Resolution Status Admit Date Chest pain acute January 27, 2024 10:38am UTI (urinary tract infection) acute January 27, 2024 10:38am Anxiety and depression chronic No vember 2023 10:38am Essential (primary) hypertension chronic January 26, 2 024 10:38am Acute exacerbation of chroni c obstructive pulmonary disease resolved 2024 6:10pm Hypoxia resolved April 03, 2024 6:10pm Blood glucose elevated acute 2024 9:34am Dark urine acute April 20, 2024 9:34am COPD (chronic obstructive pulmonary disease) chronic April 9:34am Essential (primary) hypertension chronic April 20 2 025 9:34am Hyperlipidemia chronic April 112024 9:34am Dental caries inactive April 202024 9:34am [facility] Work Phone: 1(823) 646-142809-23-2024 [facility]09-20-2024 [facility]09-25-2023 Discharge summary Author Keon Ramirez [facility] December 03, 2022 11:32pm Note Date/Time December 03, 2022 6:47pm [facility] Medical Records Department [address] [place] [address] Emergency Department Summary 12/03/22 MR#: [id number] Acct: [id number] Name: RAMSES BRADSHAW Rep #:[id number] : 1965 57 From: [place] [place] PCP: [...] Anxiety and depression Atherosclerotic heart disease of 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 Bacteria in [...] physical activity do you participate in: none ivania/evangelical: None seatbelt use: always do you feel [...] % (Auto) 64.1 Lymph % (Auto) 28.0 [place] % (Auto) 5.7 Eos % (Auto) 1.5 [...] paced rhythm with a rate of 60. MS interval was 212 ms. QRS interval was normal at 80 ms. QTc interval was normal at 452 ms. Cato was normal at 35. There are no [...] your Primary Care Provider. Call [facility] ([phone]) or report to the closest Emergency Room. Call 911 if necessary. 12/03/22 [id number] <Electronically signed by Keon Ramirez DO> Cosigner Signature (if applicable): CC: Dr. Charla Wadsworth MD ~ Signed [facility] Work Phone: 1(711) 920-179508-02-2021 [facility] ACCOUNT SEX AGE ADMIT DISCHARGE PT MED. RECORD# NUMBER DATE DATE TYPE LEEANN [id number] Best 55 09/22/20 Darren Rodríguez [id number] ROOM: 305MO DATE OF : 65 DICTATING [...] of 4 RAMSES BRADSHAW History & Physical JULIA BRADSHAWNDA Catina :1965 mg twice a day. (12) Omeprazole [...] reveal an inde (more content not included)... [facility] Onset Date Resolution Status Monomorphic ventricular tachycardia chronic Sick sinus syndrome chronic Presence of permanent cardiac pacemaker 2013 resolved Chest pain acute 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 Essential (primary) hypertension chronic Hyperlipidemia chronic Presence of permanent cardiac pacemaker 2013 resolved [facility] Work Phone: Evaluation note* Diagnosis Onset Date Resolution Status Chest pain acute 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 Essential (primary) hypertension chronic Hyperlipidemia chronic Presence of permanent cardiac pacemaker 2013 resolved [facility] Work Phone: Evaluation note* Diagnosis Onset Date Resolution Status Encephalopathy acute resolve d Encephalopathy acute Polypharmacy acute Essential (primary) hypertension chronic [facility] Work Phone: Evaluation note* Diagnosis Onset Date Resolution Status Encephalopathy acute resolve d Encephalopathy acute Polypharmacy acute Essential (primary) hypertension chronic [id number] acute Tobacco use disorder, continuous acute Primary malignant neuroendocrine tumor of stomach chronic [facility] Work Phone: Evaluation note* Diagnosis Onset Date Resolution Status [id number] acute Tobacco use disorder, continuous acute Primary malignant neuroendocrine tumor of stomach chronic 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 Essential (primary) hypertension chronic Hyperlipidemia chronic Presence of permanent cardiac pacemaker 2013 resolved Monomorphic ventricular tachycardia chronic Sick sinus syndrome chronic Presence of permanent cardiac pacemaker 2013 resolved Health care maintenance acut e Essential (primary) hypertension chronic Hyperlipidemia chronic Pain of left thumb chronic [facility] Work Phone: Evaluation note* Diagnosis Onset Date Resolution Status Monomorphic ventricular tachycardia chronic Sick sinus syndrome chronic Presence of permanent cardiac pacemaker 2013 resolved 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 Essential (primary) hypertension chronic Hyperlipidemia chronic Presence of permanent cardiac pacemaker 2013 resolved [facility] Work Phone: Evaluation note* Diagnosis Onset Date Resolution Status COPD (chronic obstructive pulmonary disease) chronic Debility chronic Essential (primary) hypertension chronic Hypothyroidism chronic Lumbar radiculopathy chronic [facility] Work Phone: Evaluation note* Diagnosis Onset Date Resolution Status COPD (chronic obstructive pulmonary disease) chronic Debility chronic Essential (primary) hypertension chronic Hypothyroidism chronic Lumbar radiculopathy chronic Sick sinus syndrome chronic Presence of permanent cardiac pacemaker 2013 resolved 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 Essential (primary) hypertension chronic Hyperlipidemia chronic Presence of permanent cardiac pacemaker 2013 resolved Encounter for examination fo r admission to assisted living facility acute Osteopenia 2022 acute Polypharmacy acute COPD (chronic obstructive pulmonary disease) chronic Essential (primary) hypertension chronic Hyperlipidemia chronic Lumbar radiculopathy chronic ELOY (obstructive sleep apnea) chronic [facility] Work Phone: Evaluation note* Diagnosis Onset Date Resolution Status Encounter for examination fo r admission to assisted living facility acute Osteopenia 2022 acute Polypharmacy acute COPD (chronic obstructive pulmonary disease) chronic Essential (primary) hypertension chronic Hyperlipidemia chronic Lumbar radiculopathy chronic ELOY (obstructive sleep apnea) chronic [facility] Work Phone: Evaluation note* Diagnosis Spinal stenosis of cervical region- Primary Spinal stenosis in cervical region Thoracic myelopathy Spondylosis with myelopathy, thoracic region [facility] Thoracic myelopathy- Primary Spondylosis with myelopathy, thoracic region Spinal stenosis of cervical region Spinal stenosis in cervical region [facility] Diagnosis Spinal stenosis of cervical region Spinal stenosis in cervical region Thoracic myelopathy Spondylosis with myelopathy, thoracic region [facility] Diagnosis Weakness of both lower extremities- Primary Obesity, Class III, BMI 40-49.9 (morbid obesity) Morbid obesity [facility] Dermatology Location: None Selected * Orthopedics Location: None Selected [facility] Work Phone: Hospital Discharge instructions Additional Instructions Left hip x-ray negative. Continue using your walker, pain medications per your pain doctors. Follow-up with Dr. Alexander. Return if any worsening symptoms.[facility] Work Phone: Hospital Discharge instructions Additional Instructions Your x-ray does not show any acute fracture or dislocation. Wear the Alejandro wrap. Try to elevate. Take Tylenol for pain at home. 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 Continue your Eliquis as directed by your doctor because of the blood clot in your left arm and return to the ER should you have any further concernsWShel[facility] Work Phone: Hospital Discharge instructions Additional Instructions Continue your Percocet as directed for pain. Follow-up with your pain management physician as soon as possible.[facility] Work Phone: Hospital Discharge instructions [...] care physician for further outpatient evaluation and management.[facility] Work Phone: Hospital Discharge instructionsAdditional Instructions Follow-up with your PCP and return for any worsening symptoms or if you have any other concerns.[facility] Work Phone: Hospital Discharge instructionsAdditional Instructions We did extensive imaging including CAT scans of your head, neck, mid back which all show no broken bones or internal injuries. The x-rays are also negative of your lower back, pelvis, and right reinoso. I recommend Tylenol as needed for pain every 6 hours and ice and 20-minute sessions throughout the day. There are signs of urinary tract infection so I prescribed an antibiotic.[facility] Work Phone: Hospital Discharge instructionsAmbulatory Orders* Dermatology Location: None Selected [facility] Work Phone: Rebmpf for referral (narrative)No reason for referral information availableBlCentury City Hospital Work Phone: Reeqql for visit Narrative* MRI/CT (Urgent) - Closed Specialty Diagnoses / Procedures Referred By Contac t Referred To Contact [facility] Diagnoses Thoracic myelopathy Procedures MRI THORACIC SPINE WO IVCON MRI SPINAL CANAL THORACIC W/O CONTRAST uBtch Loja MD [address] [place] [id number] Phone: tel: fax: [place] [id number] Referral ID Status Reason Start Date Expiration Date V isits Requested Visits Authorized [id number] Closed Auto-Generate d Referral 07/20/2024 2025 1 1 [facility] Summary Purpose Family History No Family History Records Found Relationship Condition Age at Onset Recorded Date/T silvia daughter Multiple sclerosis Unknown father Coronary artery disease Unknown Cardiac disease Unknown Multiple sclerosis Unknown grandfather Cardiac disease Unknown uncle Cardiac disease Unknown sister Malignant neoplasm of colon Unknown mother Hypertension Unknown Advance Directives No Advanced Directives Records FoundDocuments on File Type Date Recorded 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 Power of Skinner Pelts Advance Directive Response Recorded Date/ Time Advance Directives No August 17 2 11:41am Living Will No August 17, 2021 1 1:41am Power of Skinner Pelts No August 17, 2021 11:41am Advance Directive Response Recorded Date/ Time Advance Directives No August 17 2 11:41am Living Will No October 22 2 4:33pm Power of Skinner Pelts No October 22, 2 022 4:33pm Advance Directive Response Recorded Date/ Time Advance Directives No August 17 2 10:41am Living Will No October 23 2 1:55pm Power of Skinner Pelts No October 23, 2 022 1:55pm Advance Directive Response Recorded Date/ Time Advance Directives No August 17 2 11:41am Living Will No November 13, 2 023 10:33pm Power of Skinner Pelts No November 13, 2022 10:33pm Advance Directive Response Recorded Date/ Time Advance Directives No August 17 2 11:41am Living Will No November 15, 2 023 2:06pm Power of Skinner Pelts No November 15, 2022 2:06pm Advance Directive Response Recorded Date/ Time Advance Directives No August 17 11:41am Living Will No November 24, 2022 8:43pm Power of Skinner Pelts No November 8:43pm Advance Directive Response Recorded Date/ Time Advance Directives No August 17 11:41am Living Will No December 03, 2022 4:26pm Power of Skinner Pelts No November 4:26pm Advance Directive Response Recorded Date/ Time Advance Directives No August 17 10:41am Living Will No December 03, 2022 3:26pm Power of Skinner Pelts No November 3:26pm Advance Directive Response Recorded Date/ Time Advance Directives No August 17 11:41am Living Will No May 24, 2023 8:18pm Power of Skinner Pelts No May 23 8:18pm Advance Directive Response Recorded Date/ Time Advance Directives No August 17 11:41am Living Will No July 12, 2023 12 :38am Power of Skinner Pelts No July 12, 2023 12:38am Advance Directive Response Recorded Date/ Time Living Will No October 20 2:47pm Power of Skinner Pelts No October 20 024 2:47pm Living Will No April 15 8:44pm Power of Skinner Pelts No April 15, 2024 8:44pm Living Will No May 21, 2024 9:47pm Power of Skinner Pelts No May 21 9:47pm Living Will No April 03 7:49pm Power of Skinner Pelts No April 03, 2024 7:49pm Living Will No May 04, 2 025 4:11pm Power of Skinner Pelts No May 04, 2024 4:11pm Living Will No May 12, 2024 10:08pm Power of Skinner Pelts No May 12 10:08pm Advance Directives No October 21, 2023 2:47pm Advance Directive Response Recorded Date/ Time Living Will No April 15 8:44pm Do you have a Healthcare Power of Skinner Pelts? No April 15, 2024 8:44pm Living Will No May 21, 2024 9:47pm Do you have a Healthcare Power of Skinner Pelts? No May 21, 2024 9:47pm Living Will No June 13, 2024 6:35pm Do you have a Healthcare Power of Skinner Pelts? No June 13, 2024 6:35pm Living Will No April 03 7:49pm Do you have a Healthcare Power of Skinner Pelts? No April 03, 2024 7:49pm Living Will No May 04 025 4:11pm Do you have a Healthcare Power of Skinner Pelts? No May 04, 2024 4:11pm Living Will No May 12, 2024 10:08pm Do you have a Healthcare Power of Skinner Pelts? No May 12, 2024 10:08pm Advance Directives No October 21, 2023 2:47pm Advance Directive Response Recorded Date/ Time Living Will No April 15 8:44pm Do you have a Healthcare Power of Skinner Pelts? No April 15, 2024 8:44pm Living Will No May 21, 2024 9:47pm Do you have a Healthcare Power of Skinner Pelts? No May 21, 2024 9:47pm Living Will No June 13, 2024 6:35pm Do you have a Healthcare Power of Skinner Pelts? No June 13, 2024 6:35pm Living Will No June 29, 2024 5:36pm Do you have a Healthcare Power of Skinner Pelts? No June 29, 2024 5:36pm Living Will No April 03 7:49pm Do you have a Healthcare Power of Skinner Pelts? No April 03, 2024 7:49pm Living Will No May 04 2 025 4:11pm Do you have a Healthcare Power of Skinner Pelts? No May 04, 2024 4:11pm Living Will No May 12, 2024 10:08pm Do you have a Healthcare Power of Skinner Pelts? No May 12, 2024 10:08pm Advance Directives No October 21, 2023 2:47pm Advance Directive Response Recorded Date/ Time Living Will No April 15 8:44pm Do you have a Healthcare Power of Skinner Pelts? No April 15, 2024 8:44pm Living Will No May 21, 2024 9:47pm Do you have a Healthcare Power of Skinner Pelts? No May 21, 2024 9:47pm Living Will No June 13, 2024 6:35pm Do you have a Healthcare Power of Skinner Pelts? No June 13, 2024 6:35pm Living Will No June 29, 2024 5:36pm Do you have a Healthcare Power of Skinner Pelts? No June 29, 2024 5:36pm Living Will No April 03 7:49pm Do you have a Healthcare Power of Skinner Pelts? No April 03, 2024 7:49pm Living Will No May 04, 025 4:11pm Do you have a Healthcare Power of Skinner Pelts? No May 04, 2024 4:11pm Living Will No May 12, 2024 10:08pm Do you have a Healthcare Power of Skinner Pelts? No May 12, 2024 10:08pm Do you have a Healthcare Power of Skinner Pelts? No July 02, 2024 2:31pm Advance Directives No October 21, 2023 2:47pm Date Activated Date Inactivated Comments 07/03/2024 4:22 AM 07/04/2024 5:12 PM Question Answer Comments Full Code Order Discussed With: Patient Advance Directive Response Recorded Date/ Time Living Will No April 15 8:44pm Do you have a Healthcare Power of Skinner Pelts? No April 15, 2024 8:44pm Living Will No May 21, 2024 9:47pm Do you have a Healthcare Power of Skinner Pelts? No May 21, 2024 9:47pm Living Will No June 13, 2024 6:35pm Do you have a Healthcare Power of Skinner Pelts? No June 13, 2024 6:35pm Living Will No June 29, 2024 5:36pm Do you have a Healthcare Power of Skinner Pelts? No June 29, 2024 5:36pm Living Will No April 03 7:49pm Do you have a Healthcare Power of Skinner Pelts? No April 03, 2024 7:49pm Living Will No May 04, 025 4:11pm Do you have a Healthcare Power of Skinner Pelts? No May 04, 2024 4:11pm Living Will No May 12, 2024 10:08pm Do you have a Healthcare Power of Skinner Pelts? No May 12, 2024 10:08pm Do you have a Healthcare Power of Skinner Pelts? No July 02, 2024 2:31pm Do you have a Healthcare Power of Skinner Pelts? No July 22, 2024 8:18pm Advance Directives No October 21, 2023 2:47pm Date Activated Date Inactivated Comments 07/03/2024 4:22 AM 07/04/2024 5:12 PM Question Answer Comments Full Code Order Discussed With: Patient Advance Directive Response Recorded Date/ Time Living Will No May 21, 2024 9:47pm Do you have a Healthcare Power of Skinner Pelts? No May 21, 2024 9:47pm Living Will No June 13, 2024 6:35pm Do you have a Healthcare Power of Skinner Pelts? No June 13, 2024 6:35pm Living Will No June 29, 2024 5:36pm Do you have a Healthcare Power of Skinner Pelts? No June 29, 2024 5:36pm Living Will No May 04, 025 4:11pm Do you have a Healthcare Power of Skinner Pelts? No May 04, 2024 4:11pm Living Will No May 12, 2024 10:08pm Do you have a Healthcare Power of Skinner Pelts? No May 12, 2024 10:08pm Do you have a Healthcare Power of Skinner Pelts? No July 02, 2024 2:31pm Do you have a Healthcare Power of Skinner Pelts? No July 22, 2024 8:18pm Advance Directives No October 21, 2023 2:47pm Advance Directive Response Recorded Date/ Time Living Will No June 13, 2024 6:35pm Do you have a Healthcare Power of Skinner Pelts? No June 13, 2024 6:35pm Living Will No June 29, 2024 5:36pm Do you have a Healthcare Power of Skinner Pelts? No June 29, 2024 5:36pm Do you have a Healthcare Power of Skinner Pelts? No July 02, 2024 2:31pm Do you have a Healthcare Power of Skinner Pelts? No July 22, 2024 8:18pm Advance Directives No October 21, 2023 2:47pm Advance Directive Response Recorded Date/ Time Living Will No June 13, 2024 6:35pm Do you have a Healthcare Power of Skinner Pelts? No June 13, 2024 6:35pm Living Will No June 29, 2024 5:36pm Do you have a Healthcare Power of Skinner Pelts? No June 29, 2024 5:36pm Do you have a Healthcare Power of Skinner Pelts? No July 02, 2024 2:31pm Do you have a Healthcare Power of Skinner Pelts? No July 22, 2024 8:18pm Do you have a Healthcare Power of Skinner Pelts? No October 10, 2024 4:02pm Advance Directives No October 21, 2023 2:47pm Advance Directive Response Recorded Date/ Time Living Will No June 29, 2024 5:36pm Do you have a Healthcare Power of Skinner Pelts? No June 29, 2024 5:36pm Do you have a Healthcare Power of Skinner Pelts? No July 02, 2024 2:31pm Do you have a Healthcare Power of Skinner Pelts? No July 22, 2024 8:18pm Do you have a Healthcare Power of Skinner Pelts? No October 10, 2024 4:02pm Do you have a Healthcare Power of Skinner Pelts? No October 16, 2024 6:10pm Advance Directives No October 21, 2023 2:47pm Advance Directive Response Recorded Date/ Time Living Will No June 29, 2024 5:36pm Do you have a Healthcare Power of Skinner Pelts? No June 29, 2024 5:36pm Do you have a Healthcare Power of Skinner Pelts? No July 02, 2024 2:31pm Do you have a Healthcare Power of Skinner Pelts? No July 22, 2024 8:18pm Do you have a Healthcare Power of Skinner Pelts? No October 10, 2024 4:02pm Do you have a Healthcare Power of Skinner Pelts? No October 16, 2024 6:10pm Do you have a Healthcare Power of Skinner Pelts? No October 22, 2024 6:04pm Advance Directives No October 21, 2023 2:47pm Advance Directive Response Recorded Date/ Time Living Will No August 27, 2023 4:48pm Do you have a Healthcare Power of Skinner Pelts? No August 27, 2023 4:48pm Do you have a Healthcare Power of Skinner Pelts? No July 02, 2024 2:31pm Do you have a Healthcare Power of Skinner Pelts? No July 22, 2024 8:18pm Do you have a Healthcare Power of Skinner Pelts? No October 10, 2024 4:02pm Do you have a Healthcare Power of Skinner Pelts? No October 16, 2024 6:10pm Do you have a Healthcare Power of Skinner Pelts? No October 22, 2024 6:04pm Advance Directives No October 21, 2023 2:47pm Reason for Referral Status Reason Specialty Diagnoses / Procedures Re ferred By Contact Referred To Contact [facility] Required Lab Diagnoses Other malignant neuroendocrine tumors Family history of colon cancer Procedures Genetic Sendout: Common Hereditary Cancers Panel Dev Bridges MD [address] [place] [address], [address] [place] [address] Assessments Diagnosis Other malignant neuroendocrine tumors Family [...] pacemaker Chest pain Atherosclerotic heart disease of 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 Essential (primary) hypertension Hyperlipidemia Presence of permanent cardiac pacemaker Chief Complaint 9 M FU CAD CAD CHEST PAIN BACK AND LEG PAIN/RX HERE BACK PAIN Reason for Visit Chest pain Atherosclerotic heart disease of 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 Essential (primary) [...] Encephalopathy acute Encephalopathy Polypharmacy Essential (primary) hypertension [id number] Tobacco use disorder, continuous Primary malignant neuroendocrine tumor of stomach Chief Complaint LUNG CANCER SCREENIN G TOBACCO USE 1YR NO LABS REVIEW CT pacer check/ 2:30 w MMM check up Reason for Visit [id number] Tobacco use disorder, continuous 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 Essential (primary) [...] permanent cardiac pacemaker Atherosclerotic heart disease of 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 Essential (primary) hypertension Hyperlipidemia Presence of permanent cardiac pacemaker Chief Complaint 6 MO CK / MMM 1:30 6 MO F/U / AYLIN 1:00 SCREENING HIP PAIN fall, left hip pain Reason for Visit Monomorphic ventricu lar tachycardia Sick sinus syndrome Presence of permanent cardiac pacemaker Atherosclerotic heart disease of 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 Essential (primary) hypertension Hyperlipidemia Presence of permanent cardiac pacemaker Chief Complaint 6 MO CK / MMM 1:30 6 MO F/U / AYLIN 1:00 SCREENING HIP PAIN fall, left hip pain EDEMA Reason for Visit Monomorphic ventricu lar tachycardia Sick sinus syndrome Presence of permanent cardiac pacemaker Atherosclerotic heart disease of 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 Essential (primary) hypertension Hyperlipidemia Presence of permanent cardiac pacemaker Chief Complaint 6 MO CK / MMM 1:30 6 MO F/U / AYLIN 1:00 SCREENING HIP PAIN fall, left hip pain EDEMA CHEST PAIN Reason for Visit Monomorphic ventricu lar tachycardia Sick sinus syndrome Presence of permanent cardiac pacemaker Atherosclerotic heart disease of 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 Essential (primary) [...] permanent cardiac pacemaker Atherosclerotic heart disease of 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 Essential (primary) [...] :09am DENTAL April 15, 2024 5 :27pm [facility] FU/DENTAL CLEARANCE/3 M FU April 20, 2024 [...] :09am DENTAL April 15, 2024 5 :27pm [facility] FU/DENTAL CLEARANCE/3 M FU April 20, 2024 [...] 9:31 am Atherosclerotic heart diseas e of 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 June 11, 2024 9:31am Essential (primary) hypertension June 112024 9:31am Hyperlipidemia June 11, 2024 9:31 am Presence of permanent cardiac pacemaker June 11, 2024 9:31am Chief Complaint Admit Date HYPOXIA AECOPD April 03, 2024 6 :10pm HYPOXIA AECOPD April 04, 2024 7 :23am HYPOXIA AECOPD April 05, 2024 7 :09am DENTAL April 15, 2024 5 :27pm [facility] FU/DENTAL CLEARANCE/3 M FU April 20, 2024 [...] :09am DENTAL April 15, 2024 5 :27pm [facility] FU/DENTAL CLEARANCE/3 M FU April 20, 2024 [...] :09am DENTAL April 15, 2024 5 :27pm [facility] FU/DENTAL CLEARANCE/3 M FU April 20, 2024 [...] 02, 2024 2:2 7pm 3 M FU [facility] 07/02-07/04July [id number] 9:32am Chief Complaint Admit Date HYPOXIA AECOPD April 03, 2024 6 :10pm HYPOXIA AECOPD April 04, 2024 7 :23am HYPOXIA AECOPD April 05, 2024 7 :09am DENTAL April 15, 2024 5 :27pm [facility] FU/DENTAL CLEARANCE/3 M FU April 20, 2024 [...] 02, 2024 2:2 7pm 3 M FU [facility] 07/02-07/04July [id number] 9:32am complaint July 22, [...] 9:31 am Atherosclerotic heart diseas e of 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 June 11, [...] 02, 2024 2:2 7pm 3 M FU [facility] 07/02-07/04July [id number] 9:32am complaint July 22, 2024 [...] 9:31 am Atherosclerotic heart diseas e of 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 June 11, [...] 02, 2024 2:2 7pm 3 M FU [facility] 07/02-07/04July 092024 9:32am complaint July 22, 2024 [...] 02, 2024 2:2 7pm 3 M FU [facility] July 092024 9:32am complaint July 22, 2024 [...] & vomiting October 02, 2024 1:02 pm Chief Complaint Admit Date DIZZINESS June 26, 2024 7:1 4am Amb Documentation June 29, 2024 8:2 8am CHEST OTHER June 29, 2024 5:2 7pm back July 02, 2024 2:2 7pm 3 M FU [facility] July 092024 9:32am complaint July 22, 2024 8:14p m Pacer Check Remote August 17, 2024 3:43a m STOMACH PAIN, NEASEOUS October 02, 2024 1 :02pm fall October 10, 2024 3:5 5pm fall October 16, 2024 6:0 5pm Chief Complaint Admit Date DIZZINESS June 26, 2024 7:1 4am Amb Documentation June 29, 2024 8:2 8am CHEST OTHER June 29, 2024 5:2 7pm back July 02, 2024 2:2 7pm 3 M FU [facility] 4/24-07/04July [id number] 9:32am complaint July 22, 2024 8:14p m Pacer Check Remote August 17, 2024 3:43a m STOMACH PAIN, NEASEOUS October 02, 2024 1 :02pm fall October 10, 2024 3:5 5pm fall October 16, 2024 6:0 5pm 3 m fu October 21, 2024 10 :10am Chief Complaint Admit Date DIZZINESS June 26, 2024 7:1 4am Amb Documentation June 29, 2024 8:2 8am CHEST OTHER June 29, 2024 5:2 7pm back July 02, 2024 2:2 7pm 3 M FU [facility] 07/02-07/04July [id number] 9:32am complaint July 22, 2024 8:14p m Pacer Check Remote August 17, 2024 3:43a m STOMACH PAIN, NEASEOUS October 02, 2024 1 :02pm fall October 10, 2024 3:5 5pm fall October 16, 2024 6:0 5pm 3 m fu October 21, 2024 10 :10am leg pain October 22, 2024 4: 39pm Reason for Visit Admit Date Hypersomnolence July 22, 2024 9:32a m Ambulatory dysfunction July 22, 2024 9: 32am Anxiety and depression July 22, 2024 9: 32am Chronic lower back pain July 22, 2024 9 :32am Hypertension July 22, 2024 9:32a m Type 2 diabetes mellitus July 22, 2024 9:32am Diarrhea October 02, 2024 1:02 pm Nausea & vomiting October 02, 2024 1:02 pm Health care maintenance October 21 10:10am Chronic abdominal pain October 21, 2024 10:10am Essential (primary) hypertension October 21, 2024 10:10am Type 2 diabetes mellitus October 21 10:10am Chief Complaint Admit Date back July 02, 2024 2:2 7pm 3 M FU [facility] 07/02-07/04July 092024 9:32am complaint July 22, 2024 8:14p m Pacer Check Remote August 17, 2024 3:43a m STOMACH PAIN, NEASEOUS October 02, 2024 1 :02pm fall October 10, 2024 3:5 5pm fall October 16, 2024 6:0 5pm 3 m fu October 21, 2024 10 :10am leg pain October 22, 2024 4: 39pm 1 Y FU October 29, 2024 9: 38am Additional Source Comments INFORMATION SOURCE (unrecogn ized section and content) DATE CREATED AUTHOR 09/07/2018 [facility] DATE CREATED AUTHOR AUTHOR'S ORGANIZ ATION 10/11/[address] [facility] [place] [facility] DATE CREATED AUTHOR AUTHOR'S ORGANIZ ATION 05/10/2020 [facility] [place] ([place]) DATE CREATED AUTHOR AUTHOR'S ORGANIZ ATION 10/10/2020 [facility] DATE CREATED AUTHOR AUTHOR'S ORGANIZ ATION 07/02/2024 [facility] DATE CREATED AUTHOR AUTHOR'S ORGANIZ ATION 08/07/2024 [facility] DATE CREATED AUTHOR AUTHOR'S ORGANIZ ATION 08/13/2024 [facility] DATE CREATED AUTHOR AUTHOR'S ORGANIZ ATION 11/13/2024 [facility] Reason for Visit (unrecogniz ed section and content) Status Reason Specialty Diagnoses / Procedures Re ferred By Contact Referred To Contact [facility] Required Lab Diagnoses Other malignant neuroendocrine tumors Family history of colon cancer Procedures Genetic Sendout: Common Hereditary Cancers Panel Dev Bridges MD [address] [place] [address], [address] [place] [address] Reason Comments Orders Received message for m [...] MD Primary Care Provider Active Candy Hsu CONVERTER SUPERVISOR, CONVERTER SUPERVISOR-C Attending Provider, Referring Provider Active Team Status: [...] 2024 End: June 11, 2024 Kareen Bradshaw CONVERTER SUPERVISOR, CONVERTER SUPERVISOR-C Attending Provider Active Start: June 11, 2024 End: June 11, 2024 Team Status: Active Member Role Status Dates Dr. Charla Wadsworth MD Primary Care Provider Active Start: June 11, 2024 Kareen Bradshaw CONVERTER SUPERVISOR, CONVERTER SUPERVISOR-C Attending Provider Active Start: June 11, 2024 Kareen Bradshaw CONVERTER SUPERVISOR, CONVERTER SUPERVISOR-C Referring Provider Active Start: June 11, 2024 [...] 2024 End: June 11, 2024 Kareen Bradshaw CONVERTER SUPERVISOR, CONVERTER SUPERVISOR-C Attending Provider Active Start: June 11, 2024 End: June 11, 2024 Kareen Bradshaw CONVERTER SUPERVISOR, CONVERTER SUPERVISOR-C Referring Provider Active Start: June 11, 2024 [...] Active Start: June 26, 2024 Kareen Bradshaw CONVERTER SUPERVISOR, CONVERTER SUPERVISOR-C Attending Provider Active Start: June 26, 2024 Kareen Bradshaw CONVERTER SUPERVISOR, CONVERTER SUPERVISOR-C Referring Provider Active Start: June 26, 2024 Team Status: Active Member Role Status Dates Dr. Charla Wadsworth MD Primary Care Provider Active Start: June 26, 2024 Dr. Keon France MD Attending Provider Active S tart: June 26, 2024 Team Status: Active Member Role Status Dates Dr. Charla Wadsworth MD Primary Care Provider Active Start: June 29, 2024 Kareen Bradshaw CONVERTER SUPERVISOR, CONVERTER SUPERVISOR-C Attending Provider Active Start: June 29, 2024 [...] 2024 End: June 26, 2024 Kareen Bradshaw CONVERTER SUPERVISOR, CONVERTER SUPERVISOR-C Attending Provider Active Start: June 26, 2024 End: June 26, 2024 Kareen Bradshaw CONVERTER SUPERVISOR, CONVERTER SUPERVISOR-C Referring Provider Active Start: June 26, 2024 [...] July 02, 2024 End: July 03, 2024 Barrel Lapper Relationship Specialty Start Date End Date Charla Wadsworth MD [address] [place] [address] PCP - General Internal Medicine 07/03/24 Barrel Lapper Relationship Specialty Start Date End Date Charla Wadsworth MD [address] [place] [address] PCP - General Internal Medicine 07/03/24 Team Status: Inactive Member Role Status Dates Dr. Charla Wadsworth MD Primary Care Provider Active Start: June 11, 2024 End: June 11, 2024 Dr. Charla Wadsworth MD Referring Provider Active Start: June 11, 2024 End: June 11, 2024 Dr. aSmuel Keys MD Attending Provider Active S tart: June 11, 2024 End: June 11, 2024 Team Status: Active Member Role Status Dates Dr. Charla Wadsworth MD Primary Care Provider Active Start: June 26, 2024 Dr. Keon France MD Attending Provider Active S tart: June 26, 2024 Kareen Bradshaw CONVERTER SUPERVISOR, CONVERTER SUPERVISOR-C Referring Provider Active Start: June 26, 2024 [...] July 22, 2024 End: July 23, 2024 Barrel Lapper Relationship Specialty Start Date End Date Charla Wadsworth MD [address] [facility] [place] [address] PCP - General Internal Medicine 07/03/24 Barrel Lapper Relationship Specialty Start Date End Date Charla Wadsworth MD [address] [place] [address] PCP - General Internal Medicine 07/03/24 Barrel Lapper Relationship Specialty Start Date End Date Charla Wadsworth MD [address] [place] [address] PCP - General Internal Medicine 07/03/24 Team [...] 2024 End: June 11, 2024 Kareen Bradshaw CONVERTER SUPERVISOR, CONVERTER SUPERVISOR-C Attending Provider Active Start: June 11, 2024 End: June 11, 2024 Team Status: Inactive Member Role/Relationship Status Dates Dr. Charla Wadsworth MD Primary Care Provider Active Start: June 11, 2024 End: June 11, 2024 Kareen Bradshaw CONVERTER SUPERVISOR, CONVERTER SUPERVISOR-C Attending Provider Active Start: June 11, 2024 End: June 11, 2024 Kareen Bradshaw CONVERTER SUPERVISOR, CONVERTER SUPERVISOR-C Referring Provider Active Start: June 11, 2024 [...] 2024 End: June 26, 2024 Kareen Bradshaw CONVERTER SUPERVISOR, CONVERTER SUPERVISOR-C Attending Provider Active Start: June 26, 2024 End: June 26, 2024 Kareen Bradshaw CONVERTER SUPERVISOR, CONVERTER SUPERVISOR-C Referring Provider Active Start: June 26, 2024 End: June 26, 2024 Team Status: Active Member Role/Relationship Status Dates Dr. Charla Wadsworth MD Primary Care Provider Active Start: June 26, 2024 Dr. Keon France MD Attending Provider Active S tart: June 26, 2024 Kareen Bradshaw CONVERTER SUPERVISOR, CONVERTER SUPERVISOR-C Referring Provider Active Start: June 26, 2024 Team Status: Active Member Role/Relationship Status Dates Dr. Charla Wadsworth MD Primary Care Provider Active Start: June 29, 2024 Kareen Bradshaw CONVERTER SUPERVISOR, CONVERTER SUPERVISOR-C Attending Provider Active Start: June 29, 2024 [...] October 02, 2024 End: October 02, 2024 Janeth Rosado NP-C Attending Provider Active Start: October 02, 2024 [...] 2024 End: June 26, 2024 Kareen Bradshaw CONVERTER SUPERVISOR, CONVERTER SUPERVISOR-C Attending Provider Active Start: June 26, 2024 End: June 26, 2024 Kareen Bradshaw CONVERTER SUPERVISOR, CONVERTER SUPERVISOR-C Referring Provider Active Start: June 26, 2024 End: June 26, 2024 Team Status: Active Member Role/Relationship Status Dates Dr. Charla Wadsworth MD Primary Care Provider Active Start: June 26, 2024 Dr. Keon France MD Attending Provider Active S tart: June 26, 2024 Kareen Bradshaw CONVERTER SUPERVISOR, CONVERTER SUPERVISOR-C Referring Provider Active Start: June 26, 2024 Team Status: Active Member Role/Relationship Status Dates Dr. Charla Wadsworth MD Primary Care Provider Active Start: June 29, 2024 Kareen Bradshaw CONVERTER SUPERVISOR, CONVERTER SUPERVISOR-C Attending Provider Active Start: June 29, 2024 [...] October 10, 2024 End: October 10, 2024 Team Status: Inactive Member Role/Relationship Status Dates Dr. Charla Wadsworth MD Primary Care Provider Active Start: June 26, 2024 End: June 26, 2024 Kareen Bradshaw CONVERTER SUPERVISOR, CONVERTER SUPERVISOR-C Attending Provider Active Start: June 26, 2024 End: June 26, 2024 Kareen Bradshaw CONVERTER SUPERVISOR, CONVERTER SUPERVISOR-C Referring Provider Active Start: June 26, 2024 End: June 26, 2024 Team Status: Active Member Role/Relationship Status Dates Dr. Charla Wadsworth MD Primary Care Provider Active Start: June 26, 2024 Dr. Keon France MD Attending Provider Active S tart: June 26, 2024 Kareen Bradshaw CONVERTER SUPERVISOR, CONVERTER SUPERVISOR-C Referring Provider Active Start: June 26, 2024 Team Status: Active Member Role/Relationship Status Dates Dr. Charla Wadsworth MD Primary Care Provider Active Start: June 29, 2024 Kareen Bradshaw CONVERTER SUPERVISOR, CONVERTER SUPERVISOR-C Attending Provider Active Start: June 29, 2024 [...] Status: Inactive Member Role/Relationship Status Dates Dr. Chrala Wadsworth MD Primary Care Provider Active Start: August 17, 2024 End: August 17, 2024 Dr. Samuel Kyes MD Attending Provider Active S tart: August [...] October 10, 2024 End: October 10, 2024 Team Status: Inactive Member Role/Relationship Status Dates Dr. Charla Wadsworth MD Primary Care Provider Active Start: October 16, 2024 End: October 16, 2024 Dr. Guille Dill DO Emergency Provider Activ e Start: October 16, 2024 End: October 16, 2024 Team Status: Inactive Member Role/Relationship Status Dates Dr. Charla Wadsworth MD Primary Care Provider Active Start: October 10, 2024 End: October 10, 2024 Dr. Virgil Daniels MD Attending Provider Active Sta rt: October 10, 2024 End: October 10, 2024 Dr. Virgil Daniels MD Emergency Provider Active Sta rt: October 10, 2024 End: October 10, 2024 Team Status: Inactive Member Role/Relationship Status Dates Dr. Charla Wadsworth MD Primary Care Provider Active Start: October 16, 2024 End: October 16, 2024 Dr. Guille Dill DO Attending Provider Activ e Start: October 16, 2024 End: October 16, 2024 Dr. Guille Dill , DO Emergency Provider Activ e Start: October 16, 2024 End: October 16, 2024 Team Status: Inactive Member Role/Relationship Status Dates Dr. Charla Wadsworth MD Primary Care Provider Active Start: October 21, 2024 End: October 21, 2024 Dr. Charla Wadsworth MD Attending Provider Active Start: October 21, 2024 End: October 21, 2024 Dr. Charla Wadsworth MD Referring Provider Active Start: October 21, 2024 End: October 21, 2024 Team Status: Inactive Member Role/Relationship Status Dates Dr. Charla Wadsworth MD Primary Care Provider Active Start: October 22, 2024 End: October 22, 2024 Dr. Darlnee Reis MD Emergency Provider Active S tart: October 22, 2024 End: October 22, 2024 Team Status: Inactive Member Role/Relationship [...] October 10, 2024 Dr. Virgil Daniels MD Attending Provider Active Sta rt: October 10, 2024 End: October 10, 2024 Dr. Virgil Daniels MD Emergency Provider Active Sta rt: October 10, 2024 End: October 10, 2024 Team Status: Inactive Member Role/Relationship Status Dates Dr. Charla Wadsworth MD Primary Care Provider Active Start: October 16, 2024 End: October 16, 2024 Dr. Guille Dill DO Attending Provider Activ e Start: October 16, 2024 End: October 16, 2024 Dr. Guille Dill DO Emergency Provider Activ e Start: October 16, 2024 End: October 16, 2024 Team Status: Inactive Member Role/Relationship Status Dates Dr. Charla Wadsworth MD Primary Care Provider Active Start: October 21, 2024 End: October 21, 2024 Dr. Charla Wadsworth MD Attending Provider Active Start: October 21, 2024 End: October 21, 2024 Dr. Charla Wdasworth MD Referring Provider Active Start: October 21, 2024 End: October 21, 2024 Team Status: Inactive Member Role/Relationship Status Dates Dr. Charla Wadsworth MD Primary Care Provider Active Start: October 22, 2024 End: October 22, 2024 Dr. Darlene Reis MD Attending Provider Active S tart: October 22, 2024 End: October 22, 2024 Dr. Darlene Reis MD Emergency Provider Active S tart: October 22, 2024 End: October 22, 2024 Team Status: Inactive Member Role/Relationship Status Dates Dr. Charla Wadsworth MD Primary Care Provider Active Start: October 29, 2024 End: October 29, 2024 Dr. Charla Wadsworth MD Referring Provider Active Start: October 29, 2024 End: October 29, 2024 Dr. Samuel Keys MD Attending Provider Active S tart: October 29, 2024 End: October 29, 2024 Source Comments (unrecognize d section and content) In the event this informatio n is protected by the Federal Confidentiality of Alcohol and Drug Abuse Patient Records regulations: The Federal rules restrict any use of the information to criminally investigate or prosecute any alcohol or drug abuse patient.[facility] the event this information is protected by the Federal Confidentiality of Alcohol and Drug Abuse Patient Records regulations: The Federal rules restrict any use of the information to criminally investigate or prosecute any alcohol or drug abuse patient.[facility] Hospital[facility] the event this information is protected by the Federal Confidentiality of Alcohol and Drug Abuse Patient Records regulations: The Federal rules restrict any use of the information to criminally investigate or prosecute any alcohol or drug abuse patient.[facility] Hospital[facility] the event this information is protected by the Federal Confidentiality of Alcohol and Drug Abuse Patient Records regulations: The Federal rules restrict any use of the information to criminally investigate or prosecute any alcohol or drug abuse patient.[facility] Hospital[facility] the event this information is protected by the Federal Confidentiality of Alcohol and Drug Abuse Patient Records regulations: The Federal rules restrict any use of the information to criminally investigate or prosecute any alcohol or drug abuse patient.[facility] Hospital[facility] the event this information is protected by the Federal Confidentiality of Alcohol and Drug Abuse Patient Records regulations: The Federal rules restrict any use of the information to criminally investigate or prosecute any alcohol or drug abuse patient.[facility] Hospital[facility] the event this information is protected by the Federal Confidentiality of Alcohol and Drug Abuse Patient Records regulations: The Federal rules restrict any use of the information to criminally investigate or prosecute any alcohol or drug abuse patient.[facility] FOR RECORDS PERTAINING TO PATIENTS WHO [...] BE BASED ON THE PRIMARY CLINICAL RECORDS. [facility] [employer] [facility]. provides no warranty or guarantee of the accuracy or completeness of information in this document.
--- NOTE | 2024-11-15 13:24 | ED.VIS.FEGU ---
HPI HPI - Female History of Present Illness Chief Complaint: Complaint Informant: patient Narrative Narrative: 59-year-old female states starting this morning she been having dysuria, lower abdominal pressure, some minor hematuria, nonlateralizing lower abdominal and low back discomfort. Little bit of nausea no vomiting, fevers, or chills. She states this is similar to other times she has had bladder infections, she just finished antibiotics 1.5-2 weeks ago for the same symptoms and had no recurrence until this morning. States she has a history of neuroendocrine tumor, she is in remission and follows with oncology for cancer screening. She is on an anticoagulant for the past 3 months because of the DVT she had in her left upper extremity. [facility] Medical History Burning with urination Diarrhea Hypersomnolence Ambulatory dysfunction Pulmonary embolism Atrial fibrillation Diabetes Type 2 diabetes mellitus Blood glucose elevated Dark urine Anxiety Asthma Pacemaker Hypertension UTI (urinary tract infection) Pacemaker battery depletion History of tobacco use Hyperkalemia Knee sprain Post-menopausal Cancer Arthritis Walker as ambulation aid Uses wheelchair High cholesterol Back pain Injury of back Migraine headache Dietary restriction History of IBS Smoker CPAP (continuous positive airway pressure) dependence COPD (chronic obstructive pulmonary disease) Emphysema, unspecified Leg cramps History of pain when walking History of edema History of echocardiogram History of stress test Cardiology follow-up encounter History of CHF (congestive heart failure) Chest pain Osteopenia (~10/2022) Lumbar radiculopathy Debility Leukocytosis Health care maintenance Pain of left thumb Polypharmacy Encephalopathy CHI (closed head injury) Bacteria in urine Health care maintenance Muscle spasm Tobacco use disorder, continuous Encounter for screening for malignant neoplasm of lung in current smoker with 30 pack year history or greater Osteoarthritis Greater trochanteric bursitis of left hip Infected dental carries Atherosclerotic heart disease of [place] coronary artery without angina pectoris Monomorphic ventricular tachycardia Hyperlipidemia Intermittent palpitations ELOY (obstructive sleep apnea) COPD (chronic obstructive pulmonary disease) Polycythemia Primary malignant neuroendocrine tumor of stomach Sacral contusion Low back strain Anxiety and depression Hypothyroidism GERD (gastroesophageal reflux disease) PTSD (post-traumatic stress disorder) Vitamin D deficiency Neuropathy Anemia Essential (primary) hypertension Neuroendocrine neoplasm of stomach Sick sinus syndrome Sinus pause Chronic lower back pain Chronic pain syndrome Tobacco dependence syndrome Familial combined hyperlipidemia Obesity Home Medications ?Medication ?Instructions ?Recorded ?Last Taken ?Type gabapentin 300 mg capsule 300 mg PO TID 05/16/22 04/03/24 History isosorbide mononitrate 60 mg 60 mg PO QAM #90 tabs 06/13/22 04/03/24 Rx tablet,extended release 24 hr walker (Ultra-Light Rollator misc) #1 ea 10/17/22 Unknown Rx potassium chloride 20 mEq 20 meq PO DAILY 01/30/23 04/03/24 History tablet,extended release(part/cryst) Held on 11/15/24. Instructions: Resume on 11/20/24. while on antibiotic denosumab 60 mg/mL subcutaneous 60 mg subcut [id number] #1 mL 02/15/23 09/09/23 Rx syringe (Prolia) metoprolol tartrate 100 mg tablet 100 mg PO BID blood pressure, 04/26/23 04/03/24 Rx heart #180 tabs levothyroxine 25 mcg tablet 25 mcg PO DAILY 07/25/23 04/03/24 History magnesium oxide 400 mg (241.3 mg 400 mg PO DAILY 07/25/23 04/03/24 History magnesium) tablet fenofibrate 54 mg tablet 54 mg PO DAILY #90 tabs 07/31/23 04/03/24 Rx sumatriptan succinate 50 mg tablet See Rx Instructions PO .COMPLEX 08/09/23 Unknown Rx (Imitrex) #10 tabs ondansetron 8 mg disintegrating 8 mg PO Q6H PRN PRN nausea and 09/09/23 04/03/24 History tablet vomiting rosuvastatin 20 mg tablet 20 mg PO QHS 09/09/23 04/02/24 History cyclobenzaprine 10 mg tablet 10 mg PO BID PRN muscle spasm #180 10/29/23 04/03/24 Rx tabs blood sugar diagnostic (FreeStyle #100 ea 04/21/24 Unknown Rx Lite Strips) blood-glucose meter (FreeStyle #1 ea 04/21/24 Unknown Rx Lite Meter kit) lancets 28 gauge (FreeStyle #200 ea 04/21/24 Unknown Rx Lancets) oxycodone-acetaminophen 5 mg-325 1 tab PO Q8H PRN pain 3 days #10 05/04/24 Unknown Rx mg tablet (Percocet) tabs apixaban 5 mg tablet (Eliquis) 5 mg PO BID #180 tabs 05/05/24 Unknown Rx Held on 11/15/24. Instructions: until urinary blood stops, then may try resuming bed rail #1 ea 05/06/24 Unknown Rx clonazepam 0.5 mg tablet 0.5 mg PO 4X/DAY 05/12/24 Unknown History guaifenesin 100 mg/5 mL oral 400 mg PO Q4H 05/12/24 Unknown History liquid (Adult Tussin Chest Congestion) naloxone 4 mg/actuation nasal spray 4 mg intranasal Q3M PRN opioid 05/12/24 Unknown History overdose Wheelchair with leg rest / lifts #1 ea 06/26/24 Unknown Rx diclofenac sodium 1 % topical gel 1 ea topical 4X/DAY 10/10/24 Unknown History menthol 4 % topical gel (Cold 1 applic topical TID PRN pain 10/10/24 Unknown History Therapy (menthol)) meclizine 12.5 mg tablet 12.5 mg PO TID PRN dizziness #30 10/19/24 Unknown Rx tabs duloxetine 60 mg capsule,delayed 60 mg PO BID 10/21/24 Unknown History release pantoprazole 40 mg tablet,delayed 40 mg PO BID 3 months #180 tabs 10/21/24 Unknown Rx release (Protonix) amlodipine 5 mg tablet 5 mg PO QDAY PRN 10/29/24 Unknown History buspirone 15 mg tablet 15 mg PO BID 10/29/24 Unknown History buspirone 5 mg tablet 5 mg PO BID 10/29/24 Unknown History glimepiride 2 mg tablet 4 mg PO QDAY 10/29/24 Unknown History sucralfate 100 mg/mL oral ml PO 10/29/24 Unknown History suspension trazodone 150 mg tablet 300 mg PO QHS 10/29/24 Unknown History phenazopyridine 95 mg tablet (Azo 190 mg (2 x 95 mg) PO TID PRN pain 11/15/24 Unknown Rx Urinary Pain Relief) 6 doses #6 tabs sulfamethoxazole 800 1 tab PO BID #10 TABLETS 11/15/24 Unknown Rx mg-trimethoprim 160 mg tablet Allergy/AdvReac Type Severity Reaction Status Date / Time latex Allergy Intermediate skin Verified 10/29/24 09:52 irritation aspirin AdvReac Severe Nausea/Vom/ Verified 10/29/24 09:52 Diarrhea erythromycin base AdvReac Severe Vomiting,di Verified 10/29/24 09:52 (Erythromycin Base) arrhea NSAIDS (Non-Steroidal AdvReac Severe Vomiting,di Verified 10/29/24 09:52 Anti-Inflamma arrhea Family History Daughter Multiple sclerosis Father CAD (coronary artery disease) Heart disease Multiple sclerosis Grandfather Heart disease Uncle Heart disease Aunt No problems noted. Sister Colon cancer Mother Hypertension Surgical History Squamous cell carcinoma History of lumbar fusion History of esophagogastroduodenoscopy (EGD) Status post insertion of spinal cord stimulator History of left heart catheterization (08/17/21) History of colonoscopy Presence of permanent cardiac pacemaker (2013) History of resection of stomach Hx of cholecystectomy History of elbow surgery History of hysterectomy History of appendectomy History of laparotomy history excision neuroendocrine tumor Social History household members: none housing: assisted living facility current occupational status: unemployed Smoking Status: Current every day smoker tobacco type: e-cigarettes Tobacco: How many years used: 30 how long ago did patient quit smoking: A few months ago second hand exposure: Yes alcohol intake: never substance use type: does not use caffeine: Yes Type: carbonated beverages Number of servings: 1 and coffee Number of servings: 2 what type of physical activity do you participate in: none ivania/advent: None seatbelt use: always do you feel safe at home: Yes ROS ROS ED Constitutional Constitutional ED: Denies chills or fever(s) Eyes Eyes: Denies change in vision or diplopia ENT ENT ED: Denies rhinorrhea or sore throat Cardiovascular Cardiovascular: Denies chest pain or palpitations Respiratory/Chest Respiratory/Chest: Denies cough or dyspnea Gastrointestinal Gastrointestinal: Reports abdominal pain and nausea; Denies diarrhea or vomiting Genitourinary Genitourinary ED: Reports dysuria, hematuria and urinary frequency Musculoskeletal Musculoskeletal: Reports back pain; Denies neck pain Integumentary Denies abscess or rash Neurologic Neurologic: Denies headache(s), paresthesias or weakness Psychiatric Psychiatric: Denies suicidal thoughts EXAM Physical Exam Const Vital Signs: 11/15/24 12:41 11/15/24 12:43 11/15/24 13:43 Temperature 98.2 F 98.2 F 98.2 F Temperature Source Oral Oral Oral Pulse Rate 102 H 60 59 L Respiratory Rate 22 H 22 H 20 H Blood Pressure 136/87 H 136/87 H 114/68 Blood Pressure Mean 103 103 83 Pulse Ox 95 98 95 Oxygen Delivery Method Room Air Room Air Room Air Positive well nourished, well developed and obese General Appearance ED: well developed and NAD Nutritional Appearance: obese HEENT Reports moist mucous membranes normocephalic and atraumatic Eyes PERRL and EOMs intact bilaterally Neck full ROM and supple Resp normal respiratory effort and clear to auscultation bilaterally Cardio regular rate, regular rhythm and no murmurs GI non-tender and non-distended Auscultation: normoactive bowel sounds Palpation: soft Back/Spine no CVA tenderness General Back: other FROM Extremity normal to inspection General Extremety ED: Negative for edema, pulses abnormal or tenderness General Extremity: Negative for edema or pulses abnormal Neuro oriented x3, CN's II-XII intact bilaterally and no sensory deficits noted Sensorium / Orientation: awake and alert Motor Exam: strength 5/5 throughout Skin no rashes or lesions noted and no wounds MDM MDM MDM Narrative Medical decision making narrative: Urinalysis is consistent with infection, I am sending this for culture and we will prescribe her Bactrim which is a different antibiotic that she had before. She is asking for something for pain so we will give her a dose of Pyridium as well as a prescription, advised her to follow-up with her doctor. I do not think she has any signs or symptoms of systemic involvement or pyelonephritis right now so I do not think we need to check any blood work at this time. Lab Data Attestation: I reviewed the patient's lab results. Labs: Laboratory Results - last 24 hr 11/15/24 13:35 Urine Color Yellow Urine Clarity Cloudy Urine pH 5.0 Ur Specific [place] 1.020 Urine Protein 100 H Urine Glucose (UA) Normal Urine Ketones 5 H Urine Occult Blood 250 H Urine Nitrite Negative Urine Bilirubin Negative Urine Urobilinogen Normal Ur Leukocyte Esterase 500 H Urine RBC 25-50 SEEN Urine WBC >100 SEEN Ur Squamous Epith Cells 0 SEEN Urine Bacteria 0 SEEN Urine Mucus 0 SEEN Discharge Plan Triage Chief Complaint: Complaint ED Provider: Arthur Meade Dx/Rx/DC Orders Clinical Impression: Acute hemorrhagic cystitis, Anticoagulated on apixaban, CRI (chronic renal insufficiency) Instructions: ED Cystitis Female Adult Prescriptions: New phenazopyridine [Azo Urinary Pain Relief] 95 mg tablet 190 mg PO TID PRN (Reason: pain) Qty: 6 0RF sulfamethoxazole-trimethoprim 800-160 mg tablet 1 tab PO BID Qty: 10 0RF Continued duloxetine 60 mg capsule,delayed release(DR/EC) 60 mg PO BID Rx Instructions: rx by pallative care gabapentin 300 mg capsule 300 mg PO TID Patient Comments: TAKE 1 CAPSULE BY MOUTH THREE TIMES A DAY trazodone 150 mg tablet 300 mg PO QHS rosuvastatin 20 mg tablet 20 mg PO QHS sucralfate 100 mg/mL suspension PO glimepiride 2 mg tablet 4 mg PO QDAY Rx Instructions: 4 mg in the morning and 2 mg at night. amlodipine 5 mg tablet 5 mg PO QDAY PRN pantoprazole [Protonix] 40 mg tablet,delayed release (DR/EC) 40 mg PO BID 90 Days Qty: 180 1RF magnesium oxide 400 mg (241.3 mg magnesium) tablet 400 mg PO DAILY levothyroxine 25 mcg tablet 25 mcg PO DAILY Rx Instructions: TAKE ONE TABLET BY MOUTH DAILY FOR THYROID ondansetron 8 mg tablet,disintegrating 8 mg PO Q6H PRN PRN (Reason: nausea and vomiting) Rx Instructions: TAKE ONE TABLET BY MOUTH EVERY 6 HOURS NEEDED FOR NAUSEA AND VOMITING buspirone 15 mg tablet 15 mg PO BID buspirone 5 mg tablet 5 mg PO BID Rx Instructions: WITH 15MG FOR TOTAL DAILY DOSE OF 20MG oxycodone-acetaminophen [Percocet] 5-325 mg tablet 1 tab PO Q8H PRN (Reason: pain) 3 Days Qty: 10 0RF clonazepam 0.5 mg tablet 0.5 mg PO 4X/DAY Patient Comments: [NO ORIGINAL SIG] naloxone 4 mg/actuation spray,non-aerosol 4 mg intranasal Q3M PRN (Reason: opioid overdose) Rx Instructions: spray 1 dose into ONE nostril; alternate nostrils w each dose until help arrives guaifenesin [Adult Tussin Chest Congestion] 100 mg/5 mL liquid 400 mg PO Q4H Cold Therapy (menthol) 4 % gel 1 applic topical TID PRN (Reason: pain) diclofenac sodium 1 % gel 1 ea topical 4X/DAY isosorbide mononitrate 60 mg tablet extended release 24 hr 60 mg PO QAM Qty: 90 3RF (DME) Ultra-Light Rollator Misc See Rx Instructions .Route Qty: 1 0RF Rx Instructions: As directed Prolia 60 mg/mL syringe 60 mg subcut [id number] Qty: 1 2RF Patient Comments: due for injection metoprolol tartrate 100 mg tablet 100 mg PO BID Qty: 180 1RF Rx Instructions: TAKE 1 TABLET BY MOUTH TWICE A DAY FOR BLOOD PRESSURE/HEART fenofibrate 54 mg tablet 54 mg PO DAILY Qty: 90 1RF sumatriptan succinate [Imitrex] 50 mg tablet See Rx Instructions PO .COMPLEX Qty: 10 3RF Rx Instructions: take 1 tab at onset of headache; if no relief may repeat 1 tab after at least 2 hrs; max = 4 tabs/24 hr PO cyclobenzaprine 10 mg tablet 10 mg PO BID PRN (Reason: muscle spasm) Qty: 180 1RF (DME) FreeStyle Lite Strips Strip See Rx Instructions .MEDSUPPLY Qty: 100 3RF Rx Instructions: check blood glucose daily for type 2 DM (DME) blood-glucose meter [FreeStyle Lite Meter] Kit See Rx Instructions .MEDSUPPLY Qty: 1 0RF Rx Instructions: As directed, check blood glucose daily for type 2 DM (DME) lancets [FreeStyle Lancets] 28 gauge misc See Rx Instructions .MEDSUPPLY Qty: 200 3RF Rx Instructions: check blood glucose daily for type 2 DM (DME) bed rail See Rx Instructions .Route .MEDSUPPLY Qty: 1 0RF Rx Instructions: As directed (DME) Wheelchair with leg rest / lifts See Rx Instructions .Route .MEDSUPPLY Qty: 1 0RF Rx Instructions: For daily use / mobility purposes meclizine 12.5 mg tablet 12.5 mg PO TID PRN (Reason: dizziness) Qty: 30 0RF Held potassium chloride 20 mEq tablet,ER particles/crystals 20 meq PO DAILY Hold Instructions: Resume on 11/20/24. while on antibiotic Eliquis 5 mg tablet 5 mg PO BID Qty: 180 1RF Hold Instructions: until urinary blood stops, then may try resuming Rx Instructions: Start after completing starter pack Discontinued amoxicillin-pot clavulanate 875-125 mg tablet 1 tab PO Q12H Qty: 14 0RF Primary Care Provider: Charla Wadsworth Referrals: Charla Wadsworth MD [Primary Care Provider] - 3-5 Days if not improving Print Language: [place]i Disposition Disposition: Home, Self Care
[2024-11-15 13:41] LABS: Mucous, Urine 0 SEEN /hpf (<or=2+); Squamous Epithelial Cells - UA 0 SEEN /hpf (5-10)
[2024-11-15 13:42] LABS: Color, Urine Yellow (Yellow); Glucose, Dipstick Normal (Normal); Ketone-Dipstick 5 mg/dl (Negative); Leukocyte Esterase-Dipstick 500 /ul (Negative); Nitrite-Dipstick Negative (Negative); Occult Blood-Urine 250 /ul (Negative); Protein-Dipstick 100 mg/dl (Negative); Specific Gravity, Urine 1.020 (1.002-1.030); Urine Bilirubin Dipstick Negative (Negative)
[2024-11-15 13:43] VITALS: BP 114/68; PULSE 59; RESP 20; TEMP 36.8; O2SAT 95
[2024-11-15 13:51] LABS: Red Blood Cells-Urine 25-50 SEEN /hpf (0-5)
[2024-11-15 14:00] VITALS: BP 102/66; PULSE 59; RESP 15; TEMP 36.8; O2SAT 92
[2024-11-15 14:50] VITALS: BP 102/66; PULSE 59; RESP 15; TEMP 36.8; O2SAT 94
[2024-11-15] MEDS: Smz/Tmp Ds Tablet 1 TABLET PO (14:53)
== END 2024-11-15 15:38 | disposition home or self-care (01) ==
PROVIDERS: Emergency Provider Emergency Medicine; PCP Internal Medicine; Visit Provider Emergency Medicine
DX: N30.01 Acute cystitis with hematuria (principal); I13.0 Hypertensive heart and chronic kidney disease with heart failure and stage 1 through stage 4 chronic kidney disease, or unspecified chronic kidney disease; I50.9 Heart failure, unspecified; J44.9 Chronic obstructive pulmonary disease, unspecified; I48.91 Unspecified atrial fibrillation; E11.40 Type 2 diabetes mellitus with diabetic neuropathy, unspecified; E11.22 Type 2 diabetes mellitus with diabetic chronic kidney disease; I25.10 Atherosclerotic heart disease of native coronary artery without angina pectoris; E78.00 Pure hypercholesterolemia, unspecified; Z86.711 Personal history of pulmonary embolism; Z79.01 Long term (current) use of anticoagulants; N18.9 Chronic kidney disease, unspecified; Z95.0 Presence of cardiac pacemaker; G47.33 Obstructive sleep apnea (adult) (pediatric); Z99.89 Dependence on other enabling machines and devices; Z79.899 Other long term (current) drug therapy; E03.9 Hypothyroidism, unspecified; Z79.890 Hormone replacement therapy; Z79.84 Long term (current) use of oral hypoglycemic drugs; K21.9 Gastro-esophageal reflux disease without esophagitis; F41.8 Other specified anxiety disorders; Z90.49 Acquired absence of other specified parts of digestive tract; Z90.710 Acquired absence of both cervix and uterus
CPT/HCPCS: 81001; 87077; 87086; 87088; 87186; 99285

== ENCOUNTER 2024-12-17 16:47 | Emergency (ER) | payer MEDICARE, MEDICAID, SELFPAY ==
[2024-12-17 16:48] VITALS: BP 144/82; PULSE 60; RESP 16; TEMP 37; O2SAT 97; BMI 47.2
--- NOTE | 2024-12-17 16:58 | RAD_ITS ---
PROCEDURE: LEFT SHOULDER MIN 2 VIEWS 12/17/2024 REASON FOR EXAM: TRAUMA TECHNIQUE: Procedure Code: RADSH Modality: DX Procedure: SHOULDER MIN 2 VIEWS Laterality: Left COMPARISON: None. FINDINGS: No acute fracture or dislocation. Alignment is anatomic. Preserved joint spaces. No aggressive osseous lesion. No marked soft tissue swelling or radiopaque foreign body. Partially imaged left chest wall dual lead ICD, and thoracic spinal cord stimulator device implants. RAD/Shoulder min 2 Views IMPRESSION: No acute fracture or dislocation. Reading Location: [id number]
--- NOTE | 2024-12-17 16:58 | CT_ITS ---
PROCEDURE: CT SPINE CERVICAL WITHOUT CONTRAST 12/17/2024 REASON FOR EXAM: TRAUMA TECHNIQUE: Procedure Code: CTSPC Modality: CT Procedure: SPINE CERVICAL WITHOUT CONTRAS Coronal and Sagittal reconstruction series were provided. One or more dose reduction techniques were used (e.g., Automated exposure control, adjustment of the mA and/or kV according to patient size, use of iterative reconstruction technique. RADIATION DOSE SUMMARY: DLP: 1233.51 mGycm COMPARISON: 10/16/2024 FINDINGS: No acute fracture or subluxation. Straightening of the cervical lordosis may be positional or related to muscle spasm. Minimal multilevel spondylotic changes. No prevertebral soft tissue swelling. CT/Spine Cervical without Contras IMPRESSION: No acute fracture or subluxation. Minimal spondylotic changes. Reading Location: [id number]
--- NOTE | 2024-12-17 16:58 | CT_ITS ---
PROCEDURE: CHEST WITHOUT CONTRAST 12/17/2024 REASON FOR EXAM: LEFT RIB PAIN, TRAUMA TECHNIQUE: Chest CT without contrast. Coronal and Sagittal reconstruction series were provided. One or more dose reduction techniques were used (e.g., Automated exposure control, adjustment of the mA and/or kV according to patient size, use of iterative reconstruction technique RADIATION DOSE SUMMARY: CTDlvol: 21.07 mGy DLP: 1233.5 mGycm COMPARISON: None FINDINGS: Hardware: Pacer overlying left chest wall with lead in appropriate position. Lymph nodes: Scattered mediastinal lymph nodes. Bilateral mildly enlarged axillary lymph nodes. Heart and Vasculature: Coronary artery calcifications are noted. Coronary Artery Calcifications: Present Lungs and Airways: Bibasilar atelectasis. Pleura: Bilateral pleural thickening. Upper Abdomen: Diffuse hepatic steatosis. Partially visualized splenomegaly. Bones: Chronic fracture deformity of T8 vertebral body. Spinal stimulator device is visualized. CT/Chest without Contrast IMPRESSION: Bibasilar atelectasis. Coronary artery calcification (CAC) is is present No other evidence of any acute displaced fracture deformity. Reading Location: [id number]
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
[2024-12-17 18:07] VITALS: BP 112/68; PULSE 70; RESP 14; O2SAT 98
[2024-12-17 19:08] VITALS: BP 133/88; PULSE 69; RESP 14; TEMP 36.6; O2SAT 100
--- NOTE | 2024-12-17 19:11 | ED.RN ---
1850: THIS NURSE ENTERED THE PT. ROOM TO PROVIDE DISCHARGE INSTRUCTIONS. THE PT. WAS FOUND DRESSED IN HOME CLOTHES, SITTING IN A CHAIR. SHE STATED I AM READY TO GO HOME. THE PT. IV WAS LYING ON THE FLOOR WITH BLOOD SPLATTERED AROUND IT, AND A TOWEL COVERING IT. THE PT. WAS EDUCATED ABOUT THE IMPORTANCE OF A SALINE LOCK BEING REMOVED BY A NURSE AND THE PT. VERBALIZED UNDERSTANDING. POST SITE DRESSED W/ GAUZE, TAPE, ANGIOCATH INTACT, POST-SITE INTACT.
== END 2024-12-17 19:08 | disposition home or self-care (01) ==
PROVIDERS: Emergency Provider Emergency Medicine; PCP Internal Medicine; Visit Provider Emergency Medicine
DX: S16.1XXA Strain of muscle, fascia and tendon at neck level, initial encounter (principal); I11.0 Hypertensive heart disease with heart failure; I50.9 Heart failure, unspecified; J43.9 Emphysema, unspecified; I48.91 Unspecified atrial fibrillation; E11.40 Type 2 diabetes mellitus with diabetic neuropathy, unspecified; S20.20XA Contusion of thorax, unspecified, initial encounter; M25.512 Pain in left shoulder; G89.11 Acute pain due to trauma; V09.00XA Pedestrian injured in nontraffic accident involving unspecified motor vehicles, initial encounter; Y92.511 Restaurant or cafe as the place of occurrence of the external cause; E78.00 Pure hypercholesterolemia, unspecified; E78.49 Other hyperlipidemia; I25.10 Atherosclerotic heart disease of native coronary artery without angina pectoris; E03.9 Hypothyroidism, unspecified; G89.29 Other chronic pain; F17.290 Nicotine dependence, other tobacco product, uncomplicated; Z79.01 Long term (current) use of anticoagulants; Z79.84 Long term (current) use of oral hypoglycemic drugs; Z79.890 Hormone replacement therapy; Z79.899 Other long term (current) drug therapy; Z86.711 Personal history of pulmonary embolism; Z95.0 Presence of cardiac pacemaker
CPT/HCPCS: 71250; 72125; 73030; 99285

== ENCOUNTER 2025-01-11 15:26 | Emergency (ER) | payer MEDICARE, MEDICAID, SELFPAY ==
[2025-01-11 15:29] VITALS: BP 119/53; PULSE 66; RESP 14; TEMP 36.6; O2SAT 99
--- NOTE | 2025-01-11 15:32 | EKG12_ITS ---
Test Reason : CP
--- NOTE | 2025-01-11 15:50 | RAD_ITS ---
PROCEDURE: RAD/Chest PA and Lateral
--- NOTE | 2025-01-11 16:03 | CT_ITS ---
PROCEDURE: CT/Brain/Head without Contrast
--- NOTE | 2025-01-11 16:06 | ED.VIS.CHEST ---
HPI History of Present Illness Chief Complaint: Chest Pain Narrative Narrative: 59-year-old female past medical history of hypertension, on Eliquis, diabetes, history of migraines as well presents with sharp stabbing chest pain on her right side that radiated to her jaw. She states that she was at the [facility] where she [facility]. She states that she went to the nurses station and told them that she felt funny. She developed right sided chest pain that moved over to the left. She is nauseated but no vomiting. No shortness of breath or diaphoresis. She states that the pain was severe and very sharp. It has improved but she developed a headache. She states that she has migraine headaches and usually takes Imitrex but this may feel slightly different. [facility] Medical History Recurrent UTI History of ESBL E. coli infection Burning with urination Diarrhea Hypersomnolence Ambulatory dysfunction Pulmonary embolism Atrial fibrillation Diabetes Type 2 diabetes mellitus Blood glucose elevated Dark urine Anxiety Asthma Pacemaker Hypertension UTI (urinary tract infection) Pacemaker battery depletion History of tobacco use Hyperkalemia Knee sprain Post-menopausal Cancer Arthritis Walker as ambulation aid Uses wheelchair High cholesterol Back pain Injury of back Migraine headache Dietary restriction History of IBS Smoker CPAP (continuous positive airway pressure) dependence COPD (chronic obstructive pulmonary disease) Emphysema, unspecified Leg cramps History of pain when walking History of edema History of echocardiogram History of stress test Cardiology follow-up encounter History of CHF (congestive heart failure) Chest pain Osteopenia (~10/2022) Lumbar radiculopathy Debility Leukocytosis Health care maintenance Pain of left thumb Polypharmacy Encephalopathy CHI (closed head injury) Bacteria in urine Health care maintenance Muscle spasm Tobacco use disorder, continuous Encounter for screening for malignant neoplasm of lung in current smoker with 30 pack year history or greater Osteoarthritis Greater trochanteric bursitis of left hip Infected dental carries Atherosclerotic heart disease of [place] coronary artery without angina pectoris Monomorphic ventricular tachycardia Hyperlipidemia Intermittent palpitations ELOY (obstructive sleep apnea) COPD (chronic obstructive pulmonary disease) Polycythemia Primary malignant neuroendocrine tumor of stomach Sacral contusion Low back strain Anxiety and depression Hypothyroidism GERD (gastroesophageal reflux disease) PTSD (post-traumatic stress disorder) Vitamin D deficiency Neuropathy Anemia Essential (primary) hypertension Neuroendocrine neoplasm of stomach Sick sinus syndrome Sinus pause Chronic lower back pain Chronic pain syndrome Tobacco dependence syndrome Familial combined hyperlipidemia Obesity Home Medications ?Medication ?Instructions ?Recorded ?Last Taken ?Type gabapentin 300 mg capsule 300 mg PO TID 05/16/22 04/03/24 History isosorbide mononitrate 60 mg 60 mg PO QAM #90 tabs 06/13/22 04/03/24 Rx tablet,extended release 24 hr walker (Ultra-Light Rollator misc) #1 ea 10/17/22 Unknown Rx potassium chloride 20 mEq 20 meq PO DAILY 01/30/23 04/03/24 History tablet,extended release(part/cryst) Held on 11/15/24. Instructions: Resume on 11/20/24. while on antibiotic denosumab 60 mg/mL subcutaneous 60 mg subcut [id number] #1 mL 02/15/23 09/09/23 Rx syringe (Prolia) metoprolol tartrate 100 mg tablet 100 mg PO BID blood pressure, 04/26/23 04/03/24 Rx heart #180 tabs levothyroxine 25 mcg tablet 25 mcg PO DAILY 07/25/23 04/03/24 History magnesium oxide 400 mg (241.3 mg 400 mg PO DAILY 07/25/23 04/03/24 History magnesium) tablet fenofibrate 54 mg tablet 54 mg PO DAILY #90 tabs 07/31/23 04/03/24 Rx sumatriptan succinate 50 mg tablet See Rx Instructions PO .COMPLEX 08/09/23 Unknown Rx (Imitrex) #10 tabs ondansetron 8 mg disintegrating 8 mg PO Q6H PRN PRN nausea and 09/09/23 04/03/24 History tablet vomiting rosuvastatin 20 mg tablet 20 mg PO QHS 09/09/23 04/02/24 History cyclobenzaprine 10 mg tablet 10 mg PO BID PRN muscle spasm #180 10/29/23 04/03/24 Rx tabs blood sugar diagnostic (FreeStyle #100 ea 04/21/24 Unknown Rx Lite Strips) blood-glucose meter (FreeStyle #1 ea 04/21/24 Unknown Rx Lite Meter kit) lancets 28 gauge (FreeStyle #200 ea 04/21/24 Unknown Rx Lancets) oxycodone-acetaminophen 5 mg-325 1 tab PO Q8H PRN pain 3 days #10 05/04/24 Unknown Rx mg tablet (Percocet) tabs apixaban 5 mg tablet (Eliquis) 5 mg PO BID #180 tabs 05/05/24 Unknown Rx Held on 11/15/24. Instructions: until urinary blood stops, then may try resuming bed rail #1 ea 05/06/24 Unknown Rx clonazepam 0.5 mg tablet 0.5 mg PO 4X/DAY 05/12/24 Unknown History guaifenesin 100 mg/5 mL oral 400 mg PO Q4H 05/12/24 Unknown History liquid (Adult Tussin Chest Congestion) naloxone 4 mg/actuation nasal spray 4 mg intranasal Q3M PRN opioid 05/12/24 Unknown History overdose Wheelchair with leg rest / lifts #1 ea 06/26/24 Unknown Rx diclofenac sodium 1 % topical gel 1 ea topical 4X/DAY 10/10/24 Unknown History menthol 4 % topical gel (Cold 1 applic topical TID PRN pain 10/10/24 Unknown History Therapy (menthol)) meclizine 12.5 mg tablet 12.5 mg PO TID PRN dizziness #30 10/19/24 Unknown Rx tabs duloxetine 60 mg capsule,delayed 60 mg PO BID 10/21/24 Unknown History release pantoprazole 40 mg tablet,delayed 40 mg PO BID 3 months #180 tabs 10/21/24 Unknown Rx release (Protonix) amlodipine 5 mg tablet 5 mg PO QDAY PRN 10/29/24 Unknown History buspirone 15 mg tablet 15 mg PO BID 10/29/24 Unknown History buspirone 5 mg tablet 5 mg PO BID 10/29/24 Unknown History glimepiride 2 mg tablet 4 mg PO QDAY 10/29/24 Unknown History sucralfate 100 mg/mL oral ml PO 10/29/24 Unknown History suspension trazodone 150 mg tablet 300 mg PO QHS 10/29/24 Unknown History phenazopyridine 95 mg tablet (Azo 190 mg (2 x 95 mg) PO TID PRN pain 11/15/24 Unknown Rx Urinary Pain Relief) 6 doses #6 tabs sulfamethoxazole 800 1 tab PO BID #10 TABLETS 11/15/24 Unknown Rx mg-trimethoprim 160 mg tablet doxycycline monohydrate 100 mg 100 mg PO BID #14 CAPSULES 11/19/24 Unknown Rx capsule fosfomycin tromethamine 3 gram 3 g PO ONCE #1 ea 12/16/24 Unknown Rx oral packet Allergy/AdvReac Type Severity Reaction Status Date / Time latex Allergy Intermediate skin Verified 01/11/25 15:32 irritation aspirin AdvReac Severe Nausea/Vom/ Verified 01/11/25 15:32 Diarrhea erythromycin base AdvReac Severe Vomiting,di Verified 01/11/25 15:32 (Erythromycin Base) arrhea NSAIDS (Non-Steroidal AdvReac Severe Vomiting,di Verified 01/11/25 15:32 Anti-Inflamma arrhea Family History Daughter Multiple sclerosis Father CAD (coronary artery disease) Heart disease Multiple sclerosis Grandfather Heart disease Uncle Heart disease Aunt No problems noted. Sister Colon cancer Mother Hypertension Surgical History Squamous cell carcinoma History of lumbar fusion History of esophagogastroduodenoscopy (EGD) Status post insertion of spinal cord stimulator History of left heart catheterization (08/17/21) History of colonoscopy Presence of permanent cardiac pacemaker (2013) History of resection of stomach Hx of cholecystectomy History of elbow surgery History of hysterectomy History of appendectomy History of laparotomy history excision neuroendocrine tumor Social History household members: none housing: assisted living facility current occupational status: unemployed Smoking Status: Current every day smoker tobacco type: e-cigarettes Tobacco: How many years used: 30 how long ago did patient quit smoking: A few months ago second hand exposure: Yes alcohol intake: never substance use type: does not use caffeine: Yes Type: carbonated beverages Number of servings: 1 and coffee Number of servings: 2 what type of physical activity do you participate in: none ivania/christian: None seatbelt use: always do you feel safe at home: Yes ROS ROS ED ROS Narrative Review of systems positive for right sided chest pain migrating to left. Positive headache. Positive nausea, no vomiting, denies photophobia or phonophobia, pain in chest radiated upward towards jaw. No leg swelling. No fevers or chills, no cough. EXAM Physical Exam Narrative Exam Narrative: Afebrile. Vital signs noted. Nontoxic-appearing. Cardiovascular examination feels a regular rate and rhythm. Lungs are clear to auscultation bilaterally. Abdomen is soft and nontender without guarding or rebound. Positive bowel sounds. Neurological examination nonfocal, nonlateralizing. Awake, alert, interactive, appropriate. No pedal edema. Const Vital Signs: 01/11/25 15:29 01/11/25 16:28 01/11/25 16:32 Temperature 97.8 F Temperature Source Oral Pulse Rate 66 62 Respiratory Rate 14 11 L Blood Pressure 119/53 L 132/104 H Blood Pressure Mean 75 113 Pulse Ox 99 96 Oxygen Delivery Method Room Air Room Air Room Air 01/11/25 17:00 01/11/25 18:00 Temperature Temperature Source Pulse Rate 60 64 Respiratory Rate 13 13 Blood Pressure 127/70 H 152/99 H Blood Pressure Mean 89 116 Pulse Ox 98 97 Oxygen Delivery Method Room Air Room Air MDM MDM MDM Narrative Medical decision making narrative: Differential diagnosis includes but not limited to ACS versus pulmonary embolism versus migraine headache versus chest pain NOS. I have low suspicion for pulmonary embolism as she already takes Eliquis. EKG was obtained and interpreted by myself independently as normal sinus rhythm at 66 bpm without ectopy or acute ST changes. No STEMI. I reviewed her laboratory work and she has slight leukocytosis of 12.7 which I think is nonspecific with hemoglobin 14.0, hematocrit 43.6, platelet count normal at 216. Coagulation studies are negative with an INR of 1.1, PT 14.3, BUN slightly elevated 21 with creatinine 1.24, glucose 132 with a normal anion gap of 14. Initial high-sensitivity troponin is 6. Second troponin is pending. It returned at 6 as well. Chest x-ray obtained and interpreted by myself independently shows no consolidation, no acute process. I do not feel antibiotics are indicated. I reviewed the radiology report which confirms my independent interpretation. Regarding the CT of the brain as the patient is on anticoagulants, concern was for spontaneous hemorrhage, in discussion with radiology, initially, it was read as no acute intracranial process, however, he had an addendum stating that there is an area concerning for petechial hemorrhage on the left side. MRI was recommended for further evaluation. However, patient has a pacemaker and a spinal stimulator. She had refused any Imitrex as her pain was more right-sided, and she states that it did not feel like a migraine, and she no longer had a headache. Although I have very low suspicion for intracranial hemorrhage, given the fact that I discussed the patient with radiology and there was concern for petechial hemorrhage, she cannot get an MRI secondary to her pacemaker and spinal stimulator. I do feel that she requires transfer to a place that can watch her in the ICU that has neurosurgery available readily for repeat imaging of the brain. I discussed patient with Dr. Axel Herrera who accepts in transfer to [facility] intensive care unit. Disposition is transferred in stable but guarded condition. History & Record Review Discussion w/independent historian: Patient Additional record(s) reviewed:: Prior ED visit Lab Data Attestation: I reviewed the patient's lab results. Labs: Laboratory Results - last 24 hr 01/11/25 01/11/25 15:15 15:20 WBC 12.7 H RBC 4.90 Hgb 14.0 Hct 43.6 MCV 89.0 MCH 28.6 MCHC 32.1 RDW Std Deviation 45.1 H RDW Coeff of Ross 13.9 Plt Count 216 MPV 9.9 Immature Gran % (Auto) 0.700 Neut % (Auto) 58.3 Lymph % (Auto) 33.8 Dickens % (Auto) 4.9 Eos % (Auto) 2.0 Baso % (Auto) 0.3 Absolute Neuts (auto) 7.4 Absolute Lymphs (auto) 4.30 Nucleated RBC % 0 PT 14.3 INR 1.1 Sodium 139 Potassium 4.6 Chloride 106 Carbon Dioxide 19.0 L Anion Gap 14 BUN 21 H Creatinine 1.24 H Est GFR (MDRD) Non-Af 50 L BUN/Creatinine Ratio 16.8 Glucose 132 H Calcium 9.4 Troponin T High Sens 6 D Troponin T Hi Sens 2 Hr 6 Radiography Chest X-Ray - ED: 1 View, Read by ED Physician, Read by Radiologist and No Acute Disease Diagnostic Testing: Clinical Impression(s) from Imaging Studies Chest X-Ray 01/11/25 15:50 IMPRESSION: No focal consolidation. Reading Location: [facility] Brain CT 01/11/25 16:03 IMPRESSION: No acute intracranial process. Reading Location: [facility] Management Discussion w/another healthcare provider: Pizza Maker (Dr. Axel Herrera, intensive care at [facility]) and Radiologist Critical Care Time Critical Care Time: Yes Critical care time (excluding procedures): 30-74 minutes (31), Including time spent:, Discussing w/Patient &/or Family/Digital Archivist, Discussing w/Consultants, Arranging Admission or Transfer and Performing Direct Patient Care at Bedside Discharge Plan Triage Chief Complaint: Chest Pain ED Provider: Gigi Barton Dx/Rx/DC Orders Clinical Impression: Chest pain, Intracranial hemorrhage, Chronic pain Prescriptions: No Action duloxetine 60 mg capsule,delayed release(DR/EC) 60 mg PO BID Rx Instructions: rx by pallative care gabapentin 300 mg capsule 300 mg PO TID Patient Comments: TAKE 1 CAPSULE BY MOUTH THREE TIMES A DAY trazodone 150 mg tablet 300 mg PO QHS potassium chloride 20 mEq tablet,ER particles/crystals 20 meq PO DAILY rosuvastatin 20 mg tablet 20 mg PO QHS sucralfate 100 mg/mL suspension PO glimepiride 2 mg tablet 4 mg PO QDAY Rx Instructions: 4 mg in the morning and 2 mg at night. amlodipine 5 mg tablet 5 mg PO QDAY PRN pantoprazole [Protonix] 40 mg tablet,delayed release (DR/EC) 40 mg PO BID 90 Days Qty: 180 1RF magnesium oxide 400 mg (241.3 mg magnesium) tablet 400 mg PO DAILY levothyroxine 25 mcg tablet 25 mcg PO DAILY Rx Instructions: TAKE ONE TABLET BY MOUTH DAILY FOR THYROID ondansetron 8 mg tablet,disintegrating 8 mg PO Q6H PRN PRN (Reason: nausea and vomiting) Rx Instructions: TAKE ONE TABLET BY MOUTH EVERY 6 HOURS NEEDED FOR NAUSEA AND VOMITING buspirone 15 mg tablet 15 mg PO BID buspirone 5 mg tablet 5 mg PO BID Rx Instructions: WITH 15MG FOR TOTAL DAILY DOSE OF 20MG oxycodone-acetaminophen [Percocet] 5-325 mg tablet 1 tab PO Q8H PRN (Reason: pain) 3 Days Qty: 10 0RF clonazepam 0.5 mg tablet 0.5 mg PO 4X/DAY Patient Comments: [NO ORIGINAL SIG] naloxone 4 mg/actuation spray,non-aerosol 4 mg intranasal Q3M PRN (Reason: opioid overdose) Rx Instructions: spray 1 dose into ONE nostril; alternate nostrils w each dose until help arrives guaifenesin [Adult Tussin Chest Congestion] 100 mg/5 mL liquid 400 mg PO Q4H Cold Therapy (menthol) 4 % gel 1 applic topical TID PRN (Reason: pain) diclofenac sodium 1 % gel 1 ea topical 4X/DAY phenazopyridine [Azo Urinary Pain Relief] 95 mg tablet 190 mg PO TID PRN (Reason: pain) Qty: 6 0RF sulfamethoxazole-trimethoprim 800-160 mg tablet 1 tab PO BID Qty: 10 0RF doxycycline monohydrate 100 mg capsule 100 mg PO BID Qty: 14 0RF isosorbide mononitrate 60 mg tablet extended release 24 hr 60 mg PO QAM Qty: 90 3RF (DME) Ultra-Light Rollator Misc See Rx Instructions .Route Qty: 1 0RF Rx Instructions: As directed Prolia 60 mg/mL syringe 60 mg subcut [id number] Qty: 1 2RF Patient Comments: due for injection metoprolol tartrate 100 mg tablet 100 mg PO BID Qty: 180 1RF Rx Instructions: TAKE 1 TABLET BY MOUTH TWICE A DAY FOR BLOOD PRESSURE/HEART fenofibrate 54 mg tablet 54 mg PO DAILY Qty: 90 1RF sumatriptan succinate [Imitrex] 50 mg tablet See Rx Instructions PO .COMPLEX Qty: 10 3RF Rx Instructions: take 1 tab at onset of headache; if no relief may repeat 1 tab after at least 2 hrs; max = 4 tabs/24 hr PO cyclobenzaprine 10 mg tablet 10 mg PO BID PRN (Reason: muscle spasm) Qty: 180 1RF (DME) FreeStyle Lite Strips Strip See Rx Instructions .MEDSUPPLY Qty: 100 3RF Rx Instructions: check blood glucose daily for type 2 DM (DME) blood-glucose meter [FreeStyle Lite Meter] Kit See Rx Instructions .MEDSUPPLY Qty: 1 0RF Rx Instructions: As directed, check blood glucose daily for type 2 DM (DME) lancets [FreeStyle Lancets] 28 gauge misc See Rx Instructions .MEDSUPPLY Qty: 200 3RF Rx Instructions: check blood glucose daily for type 2 DM Eliquis 5 mg tablet 5 mg PO BID Qty: 180 1RF Rx Instructions: Start after completing starter pack (DME) bed rail See Rx Instructions .Route .MEDSUPPLY Qty: 1 0RF Rx Instructions: As directed (DME) Wheelchair with leg rest / lifts See Rx Instructions .Route .MEDSUPPLY Qty: 1 0RF Rx Instructions: For daily use / mobility purposes meclizine 12.5 mg tablet 12.5 mg PO TID PRN (Reason: dizziness) Qty: 30 0RF fosfomycin tromethamine 3 gram packet 3 g PO ONCE Qty: 1 0RF Primary Care Provider: Charla Wadsworth Referrals: Charla Wadsworth MD [Primary Care Provider, Internal Medicine] Print Language: British Disposition Disposition: Acute Care Hospital Discharge Location: [facility]
[2025-01-11 16:19] LABS: Hematocrit 43.6 % (37-47); Hemoglobin 14.0 g/dL (12.0-15.0); Immature Granulocytes Count 0.090 X10^3/uL (0.0-0.0); Mean Corp Hgb Conc 32.1 g/dL (32-36); Mean Corpuscular Volume 89.0 fL (81-99); Mean Platelet Vol. 9.9 fl (6.2-12.0); NRBC Flagged by Analyzer 0 % (0-5); Platelet Count 216 K/mm3 (150-450); RBC Distribution Width CV 13.9 % (11.6-14.6); RBC Distribution Width SD 45.1 fl (35.1-43.9); Red Blood Count 4.90 M/mm3 (4.2-5.4); White Blood Count 12.7 K/mm3 (4.4-11.0)
[2025-01-11 16:27] LABS: Anion Gap 14 (5-15); BUN 21 mg/dL (4-19); BUN/Creat Ratio 16.8 RATIO (10-20); Calcium,Total 9.4 mg/dL (7.6-11.0); Carbon Dioxide 19.0 mmol/L (21.0-32.0); Chloride 106 mmol/L (98-108); Glucose 132 mg/dL (70-99); Potassium 4.6 mmol/L (3.3-5.1); Troponin T High Sensitivity 6 ng/L (<=14)
[2025-01-11 16:28] VITALS: BMI 40.2
[2025-01-11 16:32] VITALS: BP 132/104; PULSE 62; RESP 11; O2SAT 96
[2025-01-11 16:40] LABS: Prothrombin Time (Protime)PT. 14.3 SECONDS (11.7-14.9)
[2025-01-11 17:00] VITALS: BP 127/70; PULSE 60; RESP 13; O2SAT 98
[2025-01-11 17:59] LABS: Troponin T High Sens 2 HR 6 ng/L (<=14)
[2025-01-11 18:00] VITALS: BP 152/99; PULSE 64; RESP 13; O2SAT 97
[2025-01-11 18:06] VITALS: BP 152/99; PULSE 64; RESP 13; TEMP 37.1; O2SAT 97
== END 2025-01-11 19:48 | disposition short-term general hospital (02) ==
PROVIDERS: Emergency Provider Emergency Medicine; PCP Internal Medicine; Visit Provider Emergency Medicine
DX: I62.9 Nontraumatic intracranial hemorrhage, unspecified (principal); I11.0 Hypertensive heart disease with heart failure; I50.9 Heart failure, unspecified; J43.9 Emphysema, unspecified; E11.40 Type 2 diabetes mellitus with diabetic neuropathy, unspecified; R07.9 Chest pain, unspecified; E78.49 Other hyperlipidemia; G89.4 Chronic pain syndrome; E78.00 Pure hypercholesterolemia, unspecified; G47.33 Obstructive sleep apnea (adult) (pediatric); R51.9 Headache, unspecified; I25.10 Atherosclerotic heart disease of native coronary artery without angina pectoris; E03.9 Hypothyroidism, unspecified; F17.290 Nicotine dependence, other tobacco product, uncomplicated; Z79.01 Long term (current) use of anticoagulants; Z79.890 Hormone replacement therapy; Z79.899 Other long term (current) drug therapy; Z86.711 Personal history of pulmonary embolism; Z95.0 Presence of cardiac pacemaker
CPT/HCPCS: 70450; 71046; 80048; 82962; 84484; 85025; 85610; 93005; 99285; A4216; J3030

== ENCOUNTER 2025-02-26 16:19 | Emergency (ER) | payer MEDICARE, MEDICAID, SELFPAY ==
[2025-02-26 16:19] VITALS: BP 105/62; PULSE 60; RESP 16; TEMP 36.8; O2SAT 99; BMI 43.2
--- NOTE | 2025-02-26 16:27 | EKG12_ITS ---
Test Reason : CP Blood Pressure : */* mmHG Vent. Rate : 60 BPM Atrial Rate : 60 BPM P-R Int : 204 ms QRS Dur : 86 ms QT Int : 420 ms P-R-T Axes : 38 48 60 degrees QTcB Int : 420 ms Atrial-paced rhythm Abnormal ECG Reconfirmed by Little Olmos ([id number]), editorial project manager IOANA PILLAI ([id number]) on 03/01/2025 10:22:48 AM Also confirmed by Little Olmos ([id number]), editorial project manager IOANA PILLAI ([id number]) on 03/02/2025 8:31:20 AM Referred By: DORIS/[email or web address] Confirmed By: Little Olmos
--- NOTE | 2025-02-26 16:36 | ED.VIS.CHEST ---
HPI History of Present Illness Chief Complaint: Chest Pain Informant: patient Onset/Context/Timing Onset: Today Activity at onset: sudden Timing: Continuous (Lasting about 30 minutes.) Quality: Positive for Pain Location: Substernal (Substernal and epigastric. Prior history.) Current Severity: Mild Maximum Severity: Mild Relieved By: Nothing Associated Symptoms: Negative for Nausea, Vomiting, Diaphoresis, Dyspnea, Cough, Fever, Acid Reflux or Palpitations Narrative Narrative: 59-year-old female history of chronic kidney disease, diabetes, A-fib on Eliquis she has been taking her blood thinner. Hypertension, COPD, PTSD, sick sinus syndrome with pacemaker. States about a half an hour ago at her assisted living facility she had nonexertional chest pain starts in epigastric and chest area spreads out. No nausea no diaphoresis no shortness of breath. Prior history without diagnosis. No hemoptysis. No leg swelling. No recent illness. She has recently been hospitalized at a tertiary center for rule out of a head bleed which she says she never actually had. Prior Similar Symptoms: Yes Recent Illness/Hospitalization: Yes CVD Risk Factors: Positive for Hypertension and Diabetes PE Risk Factors: Positive for Recent Immobilization TAD Risk Factors: Negative for Marfan's Syndrome [facility] Medical History Transition of care CKD (chronic kidney disease), stage III Left shoulder pain Recurrent UTI History of ESBL E. coli infection Burning with urination Diarrhea Hypersomnolence Ambulatory dysfunction Pulmonary embolism Atrial fibrillation Diabetes Type 2 diabetes mellitus Blood glucose elevated Dark urine Anxiety Asthma Pacemaker Hypertension UTI (urinary tract infection) Pacemaker battery depletion History of tobacco use Hyperkalemia Knee sprain Post-menopausal Cancer Arthritis Walker as ambulation aid Uses wheelchair High cholesterol Back pain Injury of back Migraine headache Dietary restriction History of IBS Smoker CPAP (continuous positive airway pressure) dependence COPD (chronic obstructive pulmonary disease) Emphysema, unspecified Leg cramps History of pain when walking History of edema History of echocardiogram History of stress test Cardiology follow-up encounter History of CHF (congestive heart failure) Chest pain Osteopenia (~10/2022) Lumbar radiculopathy Debility Leukocytosis Health care maintenance Pain of left thumb Polypharmacy Encephalopathy CHI (closed head injury) Bacteria in urine Health care maintenance Muscle spasm Tobacco use disorder, continuous Encounter for screening for malignant neoplasm of lung in current smoker with 30 pack year history or greater Osteoarthritis Greater trochanteric bursitis of left hip Infected dental carries Atherosclerotic heart disease of [place] coronary artery without angina pectoris Monomorphic ventricular tachycardia Hyperlipidemia Intermittent palpitations ELOY (obstructive sleep apnea) COPD (chronic obstructive pulmonary disease) Polycythemia Primary malignant neuroendocrine tumor of stomach Sacral contusion Low back strain Anxiety and depression Hypothyroidism GERD (gastroesophageal reflux disease) PTSD (post-traumatic stress disorder) Vitamin D deficiency Neuropathy Anemia Essential (primary) hypertension Neuroendocrine neoplasm of stomach Sick sinus syndrome Sinus pause Chronic lower back pain Chronic pain syndrome Tobacco dependence syndrome Familial combined hyperlipidemia Obesity Home Medications ?Medication ?Instructions ?Recorded ?Last Taken ?Type gabapentin 300 mg capsule 300 mg PO TID 05/16/22 04/03/24 History isosorbide mononitrate 60 mg 60 mg PO QAM #90 tabs 06/13/22 04/03/24 Rx tablet,extended release 24 hr walker (Ultra-Light Rollator misc) #1 ea 10/17/22 Unknown Rx potassium chloride 20 mEq 20 meq PO DAILY 01/30/23 04/03/24 History tablet,extended release(part/cryst) denosumab 60 mg/mL subcutaneous 60 mg subcut [id number] #1 mL 02/15/23 09/09/23 Rx syringe (Prolia) levothyroxine 25 mcg tablet 25 mcg PO DAILY 07/25/23 04/03/24 History magnesium oxide 400 mg (241.3 mg 400 mg PO DAILY 07/25/23 04/03/24 History magnesium) tablet fenofibrate 54 mg tablet 54 mg PO DAILY #90 tabs 07/31/23 04/03/24 Rx sumatriptan succinate 50 mg tablet See Rx Instructions PO .COMPLEX 08/09/23 Unknown Rx (Imitrex) #10 tabs ondansetron 8 mg disintegrating 8 mg PO Q6H PRN PRN nausea and 09/09/23 04/03/24 History tablet vomiting rosuvastatin 20 mg tablet 20 mg PO QHS 09/09/23 04/02/24 History blood sugar diagnostic (FreeStyle #100 ea 04/21/24 Unknown Rx Lite Strips) blood-glucose meter (FreeStyle #1 ea 04/21/24 Unknown Rx Lite Meter kit) lancets 28 gauge (FreeStyle #200 ea 04/21/24 Unknown Rx Lancets) oxycodone-acetaminophen 5 mg-325 1 tab PO Q8H PRN pain 3 days #10 05/04/24 Unknown Rx mg tablet (Percocet) tabs apixaban 5 mg tablet (Eliquis) 5 mg PO BID #180 tabs 05/05/24 Unknown Rx Held on 11/15/24. Instructions: until urinary blood stops, then may try resuming bed rail #1 ea 05/06/24 Unknown Rx clonazepam 0.5 mg tablet 0.5 mg PO 4X/DAY 05/12/24 Unknown History naloxone 4 mg/actuation nasal spray 4 mg intranasal Q3M PRN opioid 05/12/24 Unknown History overdose Wheelchair with leg rest / lifts #1 ea 06/26/24 Unknown Rx diclofenac sodium 1 % topical gel 1 ea topical 4X/DAY 10/10/24 Unknown History meclizine 12.5 mg tablet 12.5 mg PO TID PRN dizziness #30 10/19/24 Unknown Rx tabs duloxetine 60 mg capsule,delayed 60 mg PO BID 10/21/24 Unknown History release pantoprazole 40 mg tablet,delayed 40 mg PO BID 3 months #180 tabs 10/21/24 Unknown Rx release (Protonix) amlodipine 5 mg tablet 5 mg PO QDAY PRN 10/29/24 Unknown History buspirone 15 mg tablet 15 mg PO BID 10/29/24 Unknown History buspirone 5 mg tablet 5 mg PO BID 10/29/24 Unknown History sucralfate 100 mg/mL oral ml PO 10/29/24 Unknown History suspension trazodone 150 mg tablet 300 mg PO QHS 10/29/24 Unknown History phenazopyridine 95 mg tablet (Azo 190 mg (2 x 95 mg) PO TID PRN pain 11/15/24 Unknown Rx Urinary Pain Relief) 6 doses #6 tabs cyclobenzaprine 10 mg tablet 10 mg PO TID PRN muscle spasm #180 01/19/25 Unknown Rx tabs cranberry fruit 250 mg-vitamin C 1 tab PO DAILY #90 tabs 01/27/25 Unknown Rx 30 id-[id number] 50 mg chewable tablet metoprolol tartrate 100 mg tablet 100 mg PO BID blood pressure, 01/27/25 Unknown Rx heart #180 tabs glimepiride 2 mg tablet 4 mg (2 x 2 mg) PO BID 3 months 01/28/25 Unknown Rx #360 tabs Allergy/AdvReac Type Severity Reaction Status Date / Time latex Allergy Intermediate skin Verified 02/26/25 16:20 irritation aspirin AdvReac Severe Nausea/Vom/ Verified 02/26/25 16:20 Diarrhea erythromycin base AdvReac Severe Vomiting,di Verified 02/26/25 16:20 (Erythromycin Base) arrhea NSAIDS (Non-Steroidal AdvReac Severe Vomiting,di Verified 02/26/25 16:20 Anti-Inflamma arrhea Family History Daughter Multiple sclerosis Father CAD (coronary artery disease) Heart disease Multiple sclerosis Grandfather Heart disease Uncle Heart disease Aunt No problems noted. Sister Colon cancer Mother Hypertension Surgical History Squamous cell carcinoma History of lumbar fusion History of esophagogastroduodenoscopy (EGD) Status post insertion of spinal cord stimulator History of left heart catheterization (08/17/21) History of colonoscopy Presence of permanent cardiac pacemaker (2013) History of resection of stomach Hx of cholecystectomy History of elbow surgery History of hysterectomy History of appendectomy History of laparotomy history excision neuroendocrine tumor Social History household members: none housing: assisted living facility current occupational status: unemployed Smoking Status: Current every day smoker tobacco type: e-cigarettes Tobacco: How many years used: 30 how long ago did patient quit smoking: A few months ago second hand exposure: Yes alcohol intake: never substance use type: does not use caffeine: Yes Type: carbonated beverages Number of servings: 1 and coffee Number of servings: 2 what type of physical activity do you participate in: none ivania/orthodox: None seatbelt use: always do you feel safe at home: Yes ROS ROS ED ROS Narrative Denies recent illness. Nonexertional chest pain today. Constitutional Constitutional ED: Denies chills Eyes Eyes: Reports none ENT ENT ED: Denies ear pain Cardiovascular Cardiovascular: Reports as per HPI and chest pain; Denies palpitations or racing heartbeat Respiratory/Chest Respiratory/Chest: Denies cough or dyspnea Gastrointestinal Gastrointestinal: Denies abdominal pain, diarrhea, melena, nausea or vomiting Genitourinary Genitourinary ED: Denies dysuria or hematuria Musculoskeletal Musculoskeletal: Denies arthralgias Integumentary Denies abscess Neurologic Neurologic: Denies headache(s) Psychiatric Psychiatric: Denies anxiety Endocrine Endocrinology: Denies cold intolerance Hematologic/Lymphatic Hematologic/Lymphatic: Denies lymphadenopathy Allergic/Immunologic Allergic/Immunologic ED: Denies mouth swelling, tongue swelling or urticaria EXAM Physical Exam Narrative Exam Narrative: 59-year-old female sitting upright in bed vital signs stable afebrile. Pulse ox 9 9% on room air no hypoxia. No distress. H EENT exam pupils round react light. Moist mutes membranes. Neck nontender no JVD. No lymphadenopathy. Back nontender. Lungs clear to auscultation. Heart regular rhythm rate about 60 no murmur. Chest wall reproducibly tender no ecchymosis or bruising no redness or warmth. No discoloration. Ribs nontender. Abdomen soft nontender. Moving all 4 extremities. 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 Normal dorsi plantarflexion. Calves nontender without edema or cords. Neurologically she is awake alert. Answering questions following commands. Const Vital Signs: 02/26/25 16:19 02/26/25 16:22 02/26/25 16:54 Temperature 98.3 F Temperature Source Oral Pulse Rate 60 Respiratory Rate 16 Respiratory Effort Normal Non-Labored Blood Pressure 105/62 Blood Pressure Mean 76 Pulse Ox 99 96 Oxygen Delivery Method Room Air Room Air 02/26/25 17:19 02/26/25 18:00 02/26/25 19:00 Temperature Temperature Source Pulse Rate 80 80 80 Respiratory Rate 16 16 16 Respiratory Effort Blood Pressure 102/78 102/60 113/70 Blood Pressure Mean 86 74 84 Pulse Ox 99 99 99 Oxygen Delivery Method 02/26/25 20:00 Temperature Temperature Source Pulse Rate Respiratory Rate 20 H Respiratory Effort Blood Pressure Blood Pressure Mean Pulse Ox Oxygen Delivery Method MDM MDM MDM Narrative Medical decision making narrative: 59-year-old female with recurrent chest pain nonexertional part of it is reproducible. Have a cardiac history. Is on Eliquis I do not think it is a PE. Unlikely to be cardiac. She will undergo cardiac workup. Repeat exam at 9:02 PM. Patient doing well. Workup was negative. She will be discharged home. Chest pain uncertain etiology. Outpatient follow-up. Return if worse. History & Record Review Discussion w/independent historian: Patient Additional record(s) reviewed:: Prior outpatient record, Prior ED visit, Prior labs and No prior records Lab Data Attestation: I reviewed the patient's lab results. Lab results narrative: CBC showed a white count of 10. H&H 12 and 38. Platelets 223. Chemistries show gap of 10. BUN and creatinine of 14 and 1.1. Glucose 188. Initial troponin 8. Lipase is normal at 21. 2-hour troponin is 8 also. Chest x-ray unremarkable pacemaker on the left. Labs: Laboratory Results - last 24 hr 02/26/25 02/26/25 16:43 18:45 WBC 10.1 RBC 4.33 Hgb 12.6 Hct 38.7 MCV 89.4 MCH 29.1 MCHC 32.6 RDW Std Deviation 47.1 H RDW Coeff of Ross 14.4 Plt Count 223 MPV 9.1 Immature Gran % (Auto) 0.700 Neut % (Auto) 59.5 Lymph % (Auto) 31.8 [place] % (Auto) 5.4 Eos % (Auto) 2.2 Baso % (Auto) 0.4 Absolute Neuts (auto) 6.0 Absolute Lymphs (auto) 3.21 Nucleated RBC % 0 Sodium 139 Potassium 4.2 Chloride 104 Carbon Dioxide 24.6 Anion Gap 10 BUN 14 Creatinine 1.17 Estim Creat Clear Calc 59.68 Est GFR (MDRD) Non-Af 54 L BUN/Creatinine Ratio 11.7 Glucose 188 H Calcium 9.2 Troponin T High Sens 8 D Troponin T Hi Sens 2 Hr 8 Lipase 21 Radiography Chest X-Ray - ED: 2 View, Read by ED Physician, Read by Radiologist, Heart, Lungs, Mediastinum, Bony Structures, No Acute Disease, Chronic Changes and Cardiomegaly (Borderline.) Diagnostic Testing: Clinical Impression(s) from Imaging Studies Chest X-Ray 02/26/25 16:46 IMPRESSION: Mild cardiomegaly. No acute pulmonary disease. Reading Location: [facility] Chest x-ray, 2 views, AP and lateral, interpreted both by myself and the radiologist. Borderline cardiomegaly. Left-sided pacemaker. No effusion no pneumonia. No pneumothorax. Rhythm Strip Rhythm Strip: Paced Rate: 60 Ectopy: None EKG Initial EKG: Attestation: I personally reviewed and interpreted this EKG as follows: Interpretation: Paced Comments: Paced rhythm rate of 60 no acute signs of HI or ischemia. Discharge Plan Triage Chief Complaint: Chest Pain ED Provider: Eric Grey Dx/Rx/DC Orders Clinical Impression: Chest pain, History of diabetes mellitus, History of atrial fibrillation, History of COPD Instructions: ED Chest Pain, Uncertain Cause Prescriptions: No Action duloxetine 60 mg capsule,delayed release(DR/EC) 60 mg PO BID Rx Instructions: rx by pallative care gabapentin 300 mg capsule 300 mg PO TID Patient Comments: TAKE 1 CAPSULE BY MOUTH THREE TIMES A DAY trazodone 150 mg tablet 300 mg PO QHS potassium chloride 20 mEq tablet,ER particles/crystals 20 meq PO DAILY rosuvastatin 20 mg tablet 20 mg PO QHS sucralfate 100 mg/mL suspension PO amlodipine 5 mg tablet 5 mg PO QDAY PRN pantoprazole [Protonix] 40 mg tablet,delayed release (DR/EC) 40 mg PO BID 90 Days Qty: 180 1RF cranberry-vitamin C-mannose 250-30-50 mg tablet,chewable 1 tab PO DAILY Qty: 90 3RF metoprolol tartrate 100 mg tablet 100 mg PO BID Qty: 180 1RF Rx Instructions: For systolic BP less than 110mmhg, take 50 mg bid glimepiride 2 mg tablet 4 mg PO BID 90 Days Qty: 360 1RF magnesium oxide 400 mg (241.3 mg magnesium) tablet 400 mg PO DAILY levothyroxine 25 mcg tablet 25 mcg PO DAILY Rx Instructions: TAKE ONE TABLET BY MOUTH DAILY FOR THYROID ondansetron 8 mg tablet,disintegrating 8 mg PO Q6H PRN PRN (Reason: nausea and vomiting) Rx Instructions: TAKE ONE TABLET BY MOUTH EVERY 6 HOURS NEEDED FOR NAUSEA AND VOMITING buspirone 15 mg tablet 15 mg PO BID buspirone 5 mg tablet 5 mg PO BID Rx Instructions: WITH 15MG FOR TOTAL DAILY DOSE OF 20MG oxycodone-acetaminophen [Percocet] 5-325 mg tablet 1 tab PO Q8H PRN (Reason: pain) 3 Days Qty: 10 0RF clonazepam 0.5 mg tablet 0.5 mg PO 4X/DAY Patient Comments: [NO ORIGINAL SIG] naloxone 4 mg/actuation spray,non-aerosol 4 mg intranasal Q3M PRN (Reason: opioid overdose) Rx Instructions: spray 1 dose into ONE nostril; alternate nostrils w each dose until help arrives diclofenac sodium 1 % gel 1 ea topical 4X/DAY phenazopyridine [Azo Urinary Pain Relief] 95 mg tablet 190 mg PO TID PRN (Reason: pain) Qty: 6 0RF isosorbide mononitrate 60 mg tablet extended release 24 hr 60 mg PO QAM Qty: 90 3RF (DME) Ultra-Light Rollator Misc See Rx Instructions .Route Qty: 1 0RF Rx Instructions: As directed Prolia 60 mg/mL syringe 60 mg subcut [id number] Qty: 1 2RF Patient Comments: due for injection fenofibrate 54 mg tablet 54 mg PO DAILY Qty: 90 1RF sumatriptan succinate [Imitrex] 50 mg tablet See Rx Instructions PO .COMPLEX Qty: 10 3RF Rx Instructions: take 1 tab at onset of headache; if no relief may repeat 1 tab after at least 2 hrs; max = 4 tabs/24 hr PO (DME) FreeStyle Lite Strips Strip See Rx Instructions .MEDSUPPLY Qty: 100 3RF Rx Instructions: check blood glucose daily for type 2 DM (DME) blood-glucose meter [FreeStyle Lite Meter] Kit See Rx Instructions .MEDSUPPLY Qty: 1 0RF Rx Instructions: As directed, check blood glucose daily for type 2 DM (DME) lancets [FreeStyle Lancets] 28 gauge misc See Rx Instructions .MEDSUPPLY Qty: 200 3RF Rx Instructions: check blood glucose daily for type 2 DM Eliquis 5 mg tablet 5 mg PO BID Qty: 180 1RF Rx Instructions: Start after completing starter pack (DME) bed rail See Rx Instructions .Route .MEDSUPPLY Qty: 1 0RF Rx Instructions: As directed (DME) Wheelchair with leg rest / lifts See Rx Instructions .Route .MEDSUPPLY Qty: 1 0RF Rx Instructions: For daily use / mobility purposes meclizine 12.5 mg tablet 12.5 mg PO TID PRN (Reason: dizziness) Qty: 30 0RF cyclobenzaprine 10 mg tablet 10 mg PO TID PRN (Reason: muscle spasm) Qty: 180 1RF Primary Care Provider: Charla Wadsworth Referrals: Charla Wadsworth MD [Primary Care Provider, Internal Medicine] - 5-7 Days Activity Restrictions/Additional Instructions: All your labs chest x-ray and EKG were unremarkable. Follow-up with your primary care provider. Print Language: Maltese Disposition Disposition: Home, Self Care
--- NOTE | 2025-02-26 16:46 | RAD_ITS ---
PROCEDURE: CHEST PA AND LATERAL 02/26/2025 REASON FOR EXAM: CHEST PAIN TECHNIQUE: Procedure Code: RADCXR Modality: DX Procedure: CHEST PA AND LATERAL COMPARISON: 01/11/2025 FINDINGS: Left chest wall dual lead AICD stable positioning. Implanted spinal cord stimulator device leads in the lower thoracic spinal canal. Mild cardiomegaly. No focal consolidation, pneumothorax or pleural effusion appreciated. Mild degenerative changes of the thoracic spine. Cholecystectomy surgical clips. RAD/Chest PA and Lateral IMPRESSION: Mild cardiomegaly. No acute pulmonary disease. Reading Location: [id number]
[2025-02-26 16:54] VITALS: O2SAT 96
[2025-02-26 16:57] LABS: Hematocrit 38.7 % (37-47); Hemoglobin 12.6 g/dL (12.0-15.0); Immature Granulocytes Count 0.070 X10^3/uL (0.0-0.0); Mean Corp Hgb Conc 32.6 g/dL (32-36); Mean Corpuscular Volume 89.4 fL (81-99); Mean Platelet Vol. 9.1 fl (6.2-12.0); NRBC Flagged by Analyzer 0 % (0-5); Platelet Count 223 K/mm3 (150-450); RBC Distribution Width CV 14.4 % (11.6-14.6); RBC Distribution Width SD 47.1 fl (35.1-43.9); Red Blood Count 4.33 M/mm3 (4.2-5.4); White Blood Count 10.1 K/mm3 (4.4-11.0)
[2025-02-26 17:19] VITALS: BP 102/78; PULSE 80; RESP 16; O2SAT 99
[2025-02-26 18:00] VITALS: BP 102/60; PULSE 80; RESP 16; O2SAT 99
[2025-02-26 18:02] LABS: Anion Gap 10 (5-15); BUN 14 mg/dL (4-19); BUN/Creat Ratio 11.7 RATIO (10-20); Calcium,Total 9.2 mg/dL (7.6-11.0); Carbon Dioxide 24.6 mmol/L (21.0-32.0); Chloride 104 mmol/L (98-108); Estimated Creatinine Clearance 59.68 ml/min (50-250); Glucose 188 mg/dL (70-99); Lipase 21 U/L (13-75); Potassium 4.2 mmol/L (3.3-5.1); Troponin T High Sensitivity 8 ng/L (<=14)
[2025-02-26 19:00] VITALS: BP 113/70; PULSE 80; RESP 16; O2SAT 99
[2025-02-26 19:39] LABS: Troponin T High Sens 2 HR 8 ng/L (<=14)
[2025-02-26 20:00] VITALS: RESP 20
--- NOTE | 2025-02-26 21:08 | ED.RN ---
This RN witnessed Pt trying to leave with IV in. This RN stopped Pt and took IV out. I encouraged Pt to wait in room till her ride arrived. Pt waited in room till ride arrived.
== END 2025-02-26 21:11 | disposition home or self-care (01) ==
PROVIDERS: Emergency Provider Emergency Medicine; PCP Internal Medicine; Visit Provider Emergency Medicine
DX: R07.9 Chest pain, unspecified (principal); I48.91 Unspecified atrial fibrillation; I49.5 Sick sinus syndrome; E11.65 Type 2 diabetes mellitus with hyperglycemia; E11.22 Type 2 diabetes mellitus with diabetic chronic kidney disease; N18.30 Chronic kidney disease, stage 3 unspecified; I12.9 Hypertensive chronic kidney disease with stage 1 through stage 4 chronic kidney disease, or unspecified chronic kidney disease; F17.290 Nicotine dependence, other tobacco product, uncomplicated; Z95.0 Presence of cardiac pacemaker; Z79.01 Long term (current) use of anticoagulants; Z79.84 Long term (current) use of oral hypoglycemic drugs; Z79.899 Other long term (current) drug therapy
CPT/HCPCS: 71046; 80048; 83690; 84484; 85025; 93005; 99285; A4216